=== PATIENT | female | born 1940 | race Caucasian/White ===

== ENCOUNTER → 2022-03-26 | Outpatient (CLI) | payer MEDICARE, SELFPAY ==
[2022-03-26 21:23] LABS: Absolute Lymphocyte Count 1.71 X10^3/uL (0.83-4.51); Absolute Neutrophil Count 2.5 X10^3/uL (2.0-7.7); Basophil# 0.04 X10^3/uL; Basophil% 0.8 % (0-1); Eosinophil# 0.09 X10^3/uL; Eosinophils% 1.8 % (0-5); Hematocrit 38.6 % (37-47); Hemoglobin 11.9 g/dL (12.0-15.0); Lymphocyte # 1.71 X10^3/ul (0.83-4.51); Lymphocyte % 34.5 % (19-41); Mean Corp Hgb Conc 30.8 g/dL (32-36); Mean Corpuscular Hgb 27.2 pg (27.0-32.0); Mean Corpuscular Volume 88.3 fL (81-99); Mean Platelet Vol. 9.1 fl (6.2-12.0); Monocyte# 0.58 X10^3/uL; Monocyte% 11.7 % (0-10); NRBC Flagged by Analyzer 0 % (0-5); Neutrophil # 2.52 X10^3/uL (2.7-7.7); Platelet Count 311 K/mm3 (150-450); RBC Distribution Width CV 12.7 % (11.6-14.6); RBC Distribution Width SD 41.6 fl (35.1-43.9); Red Blood Count 4.37 M/mm3 (4.2-5.4)
[2022-03-26 22:28] LABS: AST(SGOT) 27 U/L (15-37); Alanine Aminotransfer ALT/SGPT 16 U/L (13-56); Albumin, Serum 3.7 g/dL (3.2-5.0); Alkaline Phosphatase 71 U/L (45-117); Anion Gap 5 (5-15); BUN 23 mg/dL (7-18); BUN/Creat Ratio 22.8 RATIO (10-20); Chloride 106 mmol/L (98-107); Cholesterol 171 mg/dL (200); Creatinine, Serum 1.01 mg/dL (0.55-1.02); EST Glomerular Filtration Rate 56 mL/min (>60); Est Glom Filt Rate - Afr Amer 68 mL/min (>60); Globulin 3.6 g/dL (2.2-4.2); Glucose 93 mg/dL (74-106); High Density Lipoprotein 100 mg/dL; Potassium 4.6 mmol/L (3.5-5.1); Protein, Total 7.3 g/dL (6.4-8.2); Sodium Level 139 mmol/L (136-145); Thyroid Stim Hormone (TSH) 2.51 uIU/mL (0.358-3.74); Triglycerides 76 mg/dL; Uric Acid 3.8 mg/dL (2.6-6.0); Very Low Density Lipoprotein 15 mg/dL (5-40)
== END | disposition home or self-care (01) ==
PROVIDERS: Visit Provider Nurse Practitioner
DX: M10.9 Gout, unspecified (principal); E78.5 Hyperlipidemia, unspecified; R39.15 Urgency of urination; R60.0 Localized edema
CPT/HCPCS: 80053; 80061; 84443; 84550; 85025

== ENCOUNTER → 2023-01-05 | Outpatient (CLI) | payer MEDICARE, SELFPAY ==
[2023-01-05 13:58] LABS: Anion Gap 4 (5-15); BUN 18 mg/dL (7-18); BUN/Creat Ratio 17.8 RATIO (10-20); Calcium,Total 8.8 mg/dL (8.5-10.1); Chloride 107 mmol/L (98-107); Creatinine, Serum 1.01 mg/dL (0.55-1.02); EST Glomerular Filtration Rate 56 mL/min (>60); Est Glom Filt Rate - Afr Amer 68 mL/min (>60); Glucose 95 mg/dL (74-106); Potassium 4.3 mmol/L (3.5-5.1); Sodium Level 139 mmol/L (136-145)
== END | disposition home or self-care (01) ==
PROVIDERS: PCP Nurse Practitioner; Referring Provider Internal Medicine Cardiovascular Disease; Visit Provider Internal Medicine Cardiovascular Disease
DX: I25.10 Atherosclerotic heart disease of native coronary artery without angina pectoris (principal); G20 Parkinson's disease; I10 Essential (primary) hypertension; Z95.5 Presence of coronary angioplasty implant and graft
CPT/HCPCS: 36415; 80048

== ENCOUNTER 2023-02-01 13:42 | Inpatient (IN) | payer MEDICARE, SELFPAY ==
[2023-02-01 13:44] VITALS: BP 165/79; PULSE 77; RESP 20; TEMP 36.9; O2SAT 99; BMI 31.1
--- NOTE | 2023-02-01 14:00 | RAD_ITS ---
STUDY: X-RAY - PELVIS REASON FOR EXAM: Female, 82 years old. hip injury TECHNIQUE: One view of the pelvis was obtained. COMPARISON: None. FINDINGS: There is a non-specific bowel gas pattern. Normal visualized soft tissue structures. Normal bilateral iliac wings, sacroiliac joints and visualized sacrum. Normal visualized bilateral superior and inferior pubic rami. Normal pubic symphysis. Normal ischial tuberosities. Normal visualized right femoral head. Normal right acetabulum. Normal right hip joint. Acute distracted fracture of the intertrochanteric left femur. Normal left acetabulum. Normal left hip joint. RAD/Pelvis 1 or 2 Views IMPRESSION: Acute distracted fracture of the intertrochanteric left femur. Electronically Signed: Chun Martinez MD at 14:54 EDT ,
--- NOTE | 2023-02-01 14:00 | RAD_ITS ---
STUDY: X-RAY - LEFT FEMUR REASON FOR STUDY: Female, 82 years old. fall TECHNIQUE: 2 view(s) of the femur. COMPARISON: None. FINDINGS: Acute distracted fracture of the intertrochanteric left femur. Normal visualized soft tissue structure. RAD/Femur Min 2 Views IMPRESSION: Acute distracted fracture of the intertrochanteric left femur. Electronically Signed: Chun Martinez MD at 14:55 EDT ,
--- NOTE | 2023-02-01 14:00 | RAD_ITS ---
STUDY: X-RAY CHEST REASON FOR EXAM: Female, 82 years old. cough TECHNIQUE: Single AP portable view of the chest. COMPARISON: None. FINDINGS: The lungs are clear and expanded. There is no demonstrated pleural abnormality. Normal size heart. Normal mediastinum and yanna. Normal visualized pulmonary arteries. Normal visualized aortic arch and descending thoracic aorta. Normal visualized thoracic spine. Normal visualized ribs, clavicles, and shoulders. There is no demonstrated abnormality of the visualized soft tissue structures of the upper abdomen. RAD/Chest 1 View (Portable) IMPRESSION: Normal x-ray examination of the chest. Electronically Signed: Chun Martinez MD at 14:53 EDT ,
--- NOTE | 2023-02-01 14:00 | CT_ITS ---
STUDY: CT BRAIN WITHOUT CONTRAST REASON FOR EXAM: Female, 82 years old. head injury RADIATION DOSAGE (If Supplied By Facility): CTDIvol = ( 44.99 ) mGy, DLP = ( 829.85 ) mGycm TECHNIQUE: Transaxial CT imaging of the brain was performed without administration of intravenous contrast material. Individualized dose optimization techniques were used for this CT. COMPARISON: No relevant priors. FINDINGS: Normal soft tissue structures. There is hyperostosis frontalis internus. There is mild cerebral atrophy with widening of the extra-axial spaces and ventricular dilatation. There are areas of decreased attenuation within the white matter tracts of the supratentorial brain, consistent with microvascular disease changes. Normal basal ganglia and thalami. Normal brainstem. Normal cerebellum. There is no intracranial hemorrhage. There are no findings of an acute ischemic infarction. Normal visualized paranasal sinuses. CT/Brain/Head without Contrast IMPRESSION: Chronic involutional changes of the brain. Electronically Signed: Chun Martinez MD at 14:52 EDT ,
[2023-02-01] MEDS: Ondansetron 4 MG/2 ML Vial IV ×3 (14:06→16:27)
[2023-02-01] MEDS: Morphine 4 MG/ML Syringe IV ×2 (14:06→15:31)
[2023-02-01 14:12] LABS: Absolute Lymphocyte Count 1.35 X10^3/uL (0.83-4.51); Absolute Neutrophil Count 2.9 X10^3/uL (2.0-7.7); Basophil# 0.05 X10^3/uL; Eosinophil# 0.08 X10^3/uL; Eosinophils% 1.7 % (0-5); Hematocrit 35.2 % (37-47); Hemoglobin 10.8 g/dL (12.0-15.0); Lymphocyte # 1.35 X10^3/ul (0.83-4.51); Mean Corp Hgb Conc 30.7 g/dL (32-36); Mean Corpuscular Hgb 27.5 pg (27.0-32.0); Mean Corpuscular Volume 89.6 fL (81-99); Mean Platelet Vol. 8.7 fl (6.2-12.0); Monocyte# 0.43 X10^3/uL; Monocyte% 8.9 % (0-10); NRBC Flagged by Analyzer 0 % (0-5); Neutrophil % 60.2 % (47-70); Platelet Count 255 K/mm3 (150-450); RBC Distribution Width CV 12.6 % (11.6-14.6); RBC Distribution Width SD 41.8 fl (35.1-43.9); Red Blood Count 3.93 M/mm3 (4.2-5.4); White Blood Count 4.8 K/mm3 (4.4-11.0)
--- NOTE | 2023-02-01 14:16 | EDS_ITS ---
HPI <JACQUI Cano - Last Filed: 02/01/23 15:12> History of Present Illness Chief Complaint: Fall Narrative Narrative: Patient is a 82-year-old female with history of Parkinson disease, CAD, PR who presents to the emergency department after mechanical fall. Patient does have Parkinson's, states she does have history of falls. She was trying to pivot today, when she did not move her feet, she fell on her left side. Patient complains of extreme pain to her left hip, left femur. She was brought in by EMS. Patient does have an off-color such as a silver rash color to her face, this is secondary to drinking silver water multiple years ago. Patient states to have a significant amount of pain. She does live with her and her daughter [facility] <JACQUI Cano - Last Filed: 02/01/23 15:12> [facility] Medical History Atherosclerotic heart disease of [place] coronary artery without angina pectoris Bladder spasms CAD (coronary artery disease) Cardiogenic shock Edema, lower extremity Emphysema with chronic bronchitis Essential (primary) hypertension Fibromyalgia Gout Hyperlipidemia Myocardial infarction Non-rheumatic mitral regurgitation Non-rheumatic tricuspid valve insufficiency Parkinsons disease Presence of stent in coronary artery (~12/22/21) Pulmonary hypertension ST elevation myocardial infarction (STEMI) of inferior wall (~12/22/21) Urgency of urination Home Medications aspirin 81 mg tablet,delayed release (Adult Aspirin Regimen) 81 mg PO DAILY 02/25/22 [History Last Taken 01/31/23] cholecalciferol (vitamin D3) 25 mcg (1,000 unit) capsule 25 mcg PO DAILY 02/25/22 [History Last Taken 01/31/23] trazodone 50 mg tablet 50 mg PO QHS PRN sleep 02/25/22 [History Last Taken Unknown] clopidogrel 75 mg tablet (Plavix) 75 mg PO DAILY #90 tabs 04/25/22 [Rx Last Taken 01/31/23] carvedilol 3.125 mg tablet 3.125 mg PO BID #60 tabs 07/31/22 [Rx Last Taken 01/31/23] fesoterodine 4 mg tablet,extended release 24 hr 4 mg PO DAILY 07/31/22 [History Last Taken 01/31/23] atorvastatin 40 mg tablet 40 mg PO DAILY #90 tabs 08/05/22 [Rx Last Taken 01/31/23] carbidopa 25 mg-levodopa 100 mg tablet 1.5 tab PO ONCE 12/29/22 [History Last Taken 01/31/23] carbidopa 25 mg-levodopa 100 mg tablet 2 tab PO TID 12/29/22 [History Last Taken 01/31/23] duloxetine 20 mg capsule,delayed release 20 mg PO BID 12/29/22 [History Last Taken 01/31/23] escitalopram oxalate 10 mg tablet 10 mg PO DAILY 12/29/22 [History Last Taken 01/31/23] losartan 25 mg tablet 25 mg PO DAILY #90 tabs 12/29/22 [Rx Last Taken 01/31/23] Allergy/AdvReac Type Severity Reaction Status Date / Time oxycodone [From Percocet] Allergy Severe Hives Verified 12/29/22 13:45 Surgical History Presence of coronary angioplasty implant and graft Social History Smoking Status: Former smoker pack-years: 30 Tobacco: How many years used: 30 alcohol intake: current alcohol intake frequency: holidays/special occasions only substance use type: does not use caffeine: Yes Type: coffee Number of servings: 2 ROS <JACQUI Cano - Last Filed: 02/01/23 15:12> ROS ED ROS Narrative Constitutional: Negative for fever, chills, weight loss, weakness Eyes: Negative for vision loss, vision change, double vision ENT: Negative for any sore throat, ear pain, congestion Cardiovascular: Negative for any chest pain, tightness, palpitations Respiratory: Negative for any cough, sputum production, hemoptysis, dyspnea, dyspnea on exertion, orthopnea Gastrointestinal: Negative for any abdominal pain, nausea, vomiting, diarrhea, constipation, blood in stool, blood in vomit : Negative for any urinary frequency, dysuria, retention, blood in urine Muscle skeletal: Negative for any muscle joint pain, stiffness, myalgias, arthralgias, neck pain, back pain. Positive for left hip, left femur pain Neurological: Negative for any headache, syncope, numbness or tingling, dizziness Skin: Negative for any rashes, lumps, itching, abrasions, lacerations Psychiatric: Negative for any depression, anxiety, stress, suicidal ideation, homicidal ideation Hematologic: Negative for any easy bruising, excessive bruising, easy bleeding Allergies: Negative for any eczema, hives, rash EXAM <JACQUI Cano - Last Filed: 02/01/23 15:12> Physical Exam Narrative Exam Narrative: Vital signs reviewed. HEET: Head normocephalic atraumatic, TMs clear bilaterally. Posterior pharynx is clear, moist mucous membranes. Nares clear bilaterally. Pupils are equal round reactive to light. Neck: Supple with no lymphadenopathy or tenderness. No signs of meningismus, negative jolt sign. Cardiac: Regular rate and rhythm no murmurs gallops or rubs, equal peripheral pulses bilaterally. Respiratory: Lungs clear to auscultation bilaterally. No chest tenderness. Abdomen: Soft, nontender, nondistended. No abdominal bruit or pulsatile masses. No hepatosplenomegaly Extremities: No peripheral edema, no signs of gross trauma or deformity. Active full range of motion of all extremities. Patient does have internal rotation of the left hip, significant pain to the proximal femur, left hip. I was unable to perform any flexion or extension. +2 pedal pulse Neuro: Cranial nerves II through XII intact, no focal neurological deficits. Skin: Clean dry and intact with no rash, purpura, petechiae, vesicles or pustules. Patient does have an office overlay complexion this is chronic. Backs/flank: No CVA tenderness, no midline spinal tenderness, no deformity. Psych: Normal mood and affect. No SI, HI or acute psychosis. Const Vital Signs: 02/01/23 13:44 02/01/23 13:50 Temperature 98.4 F Temperature Source Temporal Pulse Rate 77 Respiratory Rate 20 H Respiratory Effort Normal Non-Labored Respiratory Depth Normal Respiratory Pattern Normal Blood Pressure 165/79 H Blood Pressure Mean 107 Pulse Ox 99 Oxygen Delivery Method Room Air Room Air <Dr. Law Gold DO - Last Filed: 02/01/23 15:58> Physical Exam Const Vital Signs: 02/01/23 13:44 02/01/23 13:50 Temperature 98.4 F Temperature Source Temporal Pulse Rate 77 Respiratory Rate 20 H Respiratory Effort Normal Non-Labored Respiratory Depth Normal Respiratory Pattern Normal Blood Pressure 165/79 H Blood Pressure Mean 107 Pulse Ox 99 Oxygen Delivery Method Room Air Room Air [facility] <Niko LorenzSYEDAC - Last Filed: 02/01/23 15:12> [facility] Lab Data Labs: Laboratory Results - last 24 hr 02/01/23 14:05 WBC 4.8 RBC 3.93 L Hgb 10.8 L Hct 35.2 L MCV 89.6 MCH 27.5 MCHC 30.7 L RDW Std Deviation 41.8 RDW Coeff of Aleena 12.6 Plt Count 255 MPV 8.7 Immature Gran % (Auto) 0.200 Neut % (Auto) 60.2 Lymph % (Auto) 28.0 Wake % (Auto) 8.9 Eos % (Auto) 1.7 Baso % (Auto) 1.0 Absolute Neuts (auto) 2.9 Absolute Lymphs (auto) 1.35 Nucleated RBC % 0 PT 14.8 INR 1.2 Sodium 141 Potassium 4.2 Chloride 107 Carbon Dioxide 30.0 Anion Gap 4 L BUN 16 Creatinine 0.85 Estim Creat Clear Calc 41.05 Est GFR (MDRD) Af Amer 83 Est GFR (MDRD) Non-Af 68 BUN/Creatinine Ratio 18.8 Glucose 98 Calcium 8.6 Radiography Diagnostic Testing: Clinical Impression(s) from Imaging Studies Brain CT 02/01/23 14:00 IMPRESSION: Chronic involutional changes of the brain. Electronically Signed: Chun Martinez MD at 14:52 EDT Reading Location ID and State: [id number] / [employer] , Service support , Chest X-Ray 02/01/23 14:00 IMPRESSION: Normal x-ray examination of the chest. Electronically Signed: Chun Martinez MD at 14:53 EDT Reading Location ID and State: [id number] / [employer] , Service support , Femur X-Ray 02/01/23 14:00 IMPRESSION: Acute distracted fracture of the intertrochanteric left femur. Electronically Signed: Chun Martinez MD at 14:55 EDT Reading Location ID and State: [id number] / [employer] , Service support , Pelvis X-Ray 02/01/23 14:00 IMPRESSION: Acute distracted fracture of the intertrochanteric left femur. Electronically Signed: Chun Martinez MD at 14:54 EDT Reading Location ID and State: [id number] / [employer] , Service support , Elbow X-Ray 02/01/23 15:12 IMPRESSION: Normal x-ray examination of the elbow. Electronically Signed: Chun Martinez MD at 15:29 EDT Reading Location ID and State: [id number] / [employer] , Service support , EKG EKG shows a normal sinus rhythm: Attestation: I personally reviewed and interpreted this EKG as follows: Comments: Normal sinus rhythm, rate of 71 bpm, CT 150 ms, QRS duration [address] elevation, no acute infarct noted. Treatment and Re-Evaluation :: Patient appears to be in moderate distress secondary to left hip, left femur pain. Patient presents to the emergency department after mechanical falls, striking the back of her head, as well as the left hip and left femur. Secondary to the physical examination, concern for a femur or hip fracture. Differential diagnosis includes groin strain, hip fracture, femur fracture, pelvis fracture. Patient be given IV fluids, IV Zofran, IV morphine. She will be sent for x-rays of the left femur, left hip as well as CT scan of the brain. Preop orders will also be placed concerning for fracture such as PT/INR, chest x-ray, EKG. EKG was unremarkable. All radiologic examinations were read, reviewed by the emergency department attending. From these reads, a plan of care will be put in place. Patient on reevaluation said her pain was under control. Patient did have a urinary Willis. Patient's labs were unremarkable, patient CBC PT/INR chemistries were unremarkable. Patient's CT scan of the brain showed chronic involutional changes of the brain. Patient's x-ray of the chest was unremarkable, x-ray of the pelvis and femur showed acute distracted fracture of the intertrochanteric left femur. Secondary to this finding, I did reach out to orthopedics Dr. Grier, he will likely fix the hip tomorrow. Patient will need to be admitted to hospitalist. Patient stable. <Dr. Law Gold, DO - Last Filed: 02/01/23 15:58> [facility] Narrative Medical decision making narrative: I have personally performed a face to face assessment of the patient and have reviewed the AMMON Note. I performed a substantive portion of the visit including all aspects of the following. My medeiros findings include: History: Patient presents with left hip pain that began after a fall. Patient lives in extended-care facility and fell trying to stand and get out of bed. Patient denies any head injury or loss of consciousness. Patient landed on her left hip. Patient states she was unable to ambulate after the fall. Patient states her pain is worse with any movement. Patient denies any paresthesias or weakness. Patient denies any other injuries. Exam: Vital signs are stable. Patient is afebrile. Patient is in no acute distress. Oral mucosa is pink and moist. Neck is supple. Trachea is midline. There is no JVD. Heart was regular rate and rhythm. Lungs are clear and equal bilaterally. Abdomen is soft. Bowel sounds are normal. There is no tenderness. Musculoskeletal exam reveals deformity of the left lower extremity. It is shortened and externally rotated. Pedal pulses are equal bilaterally. Sensations intact to light touch in all digits. Capillary refill was less than 2 seconds in all digits. Patient's skin has a silver hue to it. Patient states that she drank silver water recently and is due to that. Medical Decision Making: Differential diagnosis includes hip fracture, anemia, dehydration, and electrolyte abnormality. X-rays of the left hip will be obtained to assess for fracture. CBC will be obtained to assess for anemia. Basic metabolic profile will be obtained to assess for electrolyte abnormality and renal function. X-rays of the pelvis were obtained. There is 1 view. On my interpretation, there is an intertrochanteric fracture of the left hip. Radiologist also interpreted the x-rays and agrees. X-rays of the left femur were obtained. There are 5 views. On my independent interpretation, there is an intertrochanteric fracture of the left femoral neck. There are no other fractures noted. Radiologist also interpreted the x-rays and agrees. Portable 1 view chest x-ray was obtained. On my independent interpretation, lung garibay are clear. There is normal cardiac silhouette. Bony thorax is normal. There is no acute process noted. Radiologist also interpreted the x-ray and agrees. X-rays of the left elbow were obtained. There are 3 views. On my independent interpretation, there is no acute fracture noted. There are some degenerative changes noted. There is no effusion noted. Radiologist also interpreted the x-rays and agrees. CT scan of the brain was obtained. There is no acute intracranial abnormality. This was interpreted by the radiologist and was also independently reviewed by myself. CBC was reviewed. There is a mild anemia with a hemoglobin of 10.8 and hematocrit 35.2. Basic metabolic profile was reviewed and was essentially within normal limits. Because of the hip fracture, PT with INR was obtained. Pro time was 14.8 and INR is 1.2. EKG was obtained. On my independent interpretation, shows normal sinus rhythm with a rate of 71. There are no acute ST or T wave changes noted. Case was discussed with the hospitalist. She will admit the patient to her service. Patient understood and was agreeable with the plan. All questions were answered. Lab Data Attestation: I reviewed the patient's lab results. Labs: Laboratory Results - last 24 hr 02/01/23 14:05 WBC 4.8 RBC 3.93 L Hgb 10.8 L Hct 35.2 L MCV 89.6 MCH 27.5 MCHC 30.7 L RDW Std Deviation 41.8 RDW Coeff of Aleena 12.6 Plt Count 255 MPV 8.7 Immature Gran % (Auto) 0.200 Neut % (Auto) 60.2 Lymph % (Auto) 28.0 Wake % (Auto) 8.9 Eos % (Auto) 1.7 Baso % (Auto) 1.0 Absolute Neuts (auto) 2.9 Absolute Lymphs (auto) 1.35 Nucleated RBC % 0 PT 14.8 INR 1.2 Sodium 141 Potassium 4.2 Chloride 107 Carbon Dioxide 30.0 Anion Gap 4 L BUN 16 Creatinine 0.85 Estim Creat Clear Calc 41.05 Est GFR (MDRD) Af Amer 83 Est GFR (MDRD) Non-Af 68 BUN/Creatinine Ratio 18.8 Glucose 98 Calcium 8.6 Radiography Diagnostic Testing: Clinical Impression(s) from Imaging Studies Brain CT 02/01/23 14:00 IMPRESSION: Chronic involutional changes of the brain. Electronically Signed: Chun Martinez MD at 14:52 EDT Reading Location ID and State: [employer] / [employer] , Service support , Chest X-Ray 02/01/23 14:00 IMPRESSION: Normal x-ray examination of the chest. Electronically Signed: Chun Martinez MD at 14:53 EDT Reading Location ID and State: [employer] / [employer] , Service support , Femur X-Ray 02/01/23 14:00 IMPRESSION: Acute distracted fracture of the intertrochanteric left femur. Electronically Signed: Chun Martinez MD at 14:55 EDT Reading Location ID and State: [employer] / [employer] , Service support , Pelvis X-Ray 02/01/23 14:00 IMPRESSION: Acute distracted fracture of the intertrochanteric left femur. Electronically Signed: Chun Martinez MD at 14:54 EDT Reading Location ID and State: [employer] / [employer] , Service support , Elbow X-Ray 02/01/23 15:12 IMPRESSION: Normal x-ray examination of the elbow. Electronically Signed: Chun Martinez MD at 15:29 EDT Reading Location ID and State: [employer] / [employer] , Service support , Discharge Plan Triage Chief Complaint: Fall ED Midlevel Provider: Niko Lorenz ED Provider: Law Gold Dx/Rx/DC Orders Clinical Impression: History of Parkinson's disease, Closed hip fracture, CHI (closed head injury), Fall Primary Care Provider: Patrizia Arreguin NP
[2023-02-01 14:21] LABS: International Normalized Ratio 1.2; Prothrombin Time (Protime)PT. 14.8 SECONDS (11.7-14.9)
[2023-02-01 14:25] LABS: Anion Gap 4 (5-15); BUN 16 mg/dL (7-18); BUN/Creat Ratio 18.8 RATIO (10-20); Calcium,Total 8.6 mg/dL (8.5-10.1); Chloride 107 mmol/L (98-107); Creatinine, Serum 0.85 mg/dL (0.55-1.02); EST Glomerular Filtration Rate 68 mL/min (>60); Est Glom Filt Rate - Afr Amer 83 mL/min (>60); Estimated Creatinine Clearance 41.05 ml/min; Glucose 98 mg/dL (74-106); Potassium 4.2 mmol/L (3.5-5.1); Sodium Level 141 mmol/L (136-145)
--- NOTE | 2023-02-01 15:12 | RAD_ITS ---
STUDY: X-RAY - LEFT ELBOW REASON FOR EXAM: Female, 82 years old. fall TECHNIQUE: 3 view(s) of the elbow. COMPARISON: None. FINDINGS: Normal visualized humerus, radius and ulna. Normal radiocapitellar and ulnotrochlear articulations. The soft tissue structures are unremarkable. RAD/Elbow min 3 Views IMPRESSION: Normal x-ray examination of the elbow. Electronically Signed: Chun Martinez MD at 15:29 EDT ,
--- NOTE | 2023-02-01 15:26 | HP.PCM.HOS_ITS ---
HPI - General General Date of Admission: 02/01/23 Date of Service: 02/01/23 Chief Complaint: Fall, L hip pain. HPI Narrative The patient is an 82 y/o F w/ PMHx: CAD s/p PCI, HTN, HLD, COPD, Parkinson's disease, Chronic urgency/bladder spasms following with Urology, Gout, Fibromyalgia, Hx usage silver water with chronically silver skin hue, Obesity who presents to the [facility] ED on 02/01/23 with history of mechanical fall attempting to pivot with her walker however her feet did not move as quickly as her upper body and she fell onto her left side with significant debility and pain to the left hip and leg prompting EMS call and transition to the ED for evaluation. Patient does have a history of frequent falls but is improved since she uses a walker. Patient in the ED currently rating her pain 7 out of 10 in severity specifically to the left hip, worse with any movement. Work-up in the ED included T98.4, heart rate 77, BP 165/79, respiratory rate 20, 99% on room air, CBC with WBC 4.8, hemoglobin 10.8, MCV 89.6, platelet 255 without marked shift, unremarkable coags, unremarkable BMP, CT brain with chronic involutional changes, chest x-ray with no acute cardiopulmonary findings, plain film of the left femur with an acute distracted fracture of the intertrochanteric left femur, plain film of the pelvis with an acute distracted fracture of the intertrochanteric left femur, EKG with sinus rhythm with no acute evidence of ischemia. Discussed patient allergies specifically oxycodone which causes hives. She notes she is able to tolerate [place] and per daughter Dilaudid low- dose. In the ED she was administered Zofran 4 mg IV x2 and morphine 4 mg IV x2 and did not have a significant reaction thus far but discussed and if any concerns arise or hives would administer medications as needed. [facility] Medical History (Updated 02/01/23 @ 16:[address] Jasmin Steele MD) Atherosclerotic heart disease of lime coronary artery without angina pectoris Bladder spasms CAD (coronary artery disease) Cardiogenic shock Depression Edema, lower extremity Emphysema with chronic bronchitis Essential (primary) hypertension Fibromyalgia Former tobacco use Gout Hyperlipidemia Hypertension Myocardial infarction Non-rheumatic mitral regurgitation Non-rheumatic tricuspid valve insufficiency Parkinsons disease Presence of stent in coronary artery (~12/22/21) Pulmonary hypertension ST elevation myocardial infarction (STEMI) of inferior wall (~12/22/21) Urgency of urination Home Medications aspirin 81 mg tablet,delayed release (Adult Aspirin Regimen) 81 mg PO DAILY 02/25/22 [History Last Taken 01/31/23] cholecalciferol (vitamin D3) 25 mcg (1,000 unit) capsule 25 mcg PO DAILY 02/25/22 [History Last Taken 01/31/23] trazodone 50 mg tablet 50 mg PO QHS PRN sleep 02/25/22 [History Last Taken Unknown] clopidogrel 75 mg tablet (Plavix) 75 mg PO DAILY #90 tabs 04/25/22 [Rx Last Taken 01/31/23] carvedilol 3.125 mg tablet 3.125 mg PO BID #60 tabs 07/31/22 [Rx Last Taken 01/31/23] fesoterodine 4 mg tablet,extended release 24 hr 4 mg PO DAILY 07/31/22 [History Last Taken 01/31/23] atorvastatin 40 mg tablet 40 mg PO DAILY #90 tabs 08/05/22 [Rx Last Taken 01/31/23] carbidopa 25 mg-levodopa 100 mg tablet 1.5 tab PO ONCE 12/29/22 [History Last Taken 01/31/23] carbidopa 25 mg-levodopa 100 mg tablet 2 tab PO TID 12/29/22 [History Last Taken 01/31/23] duloxetine 20 mg capsule,delayed release 20 mg PO BID 12/29/22 [History Last Taken 01/31/23] escitalopram oxalate 10 mg tablet 10 mg PO DAILY 12/29/22 [History Last Taken 01/31/23] losartan 25 mg tablet 25 mg PO DAILY #90 tabs 12/29/22 [Rx Last Taken 01/31/23] Allergy/AdvReac Type Severity Reaction Status Date / Time oxycodone [From Percocet] Allergy Severe Hives Verified 12/29/22 13:45 Family History (Updated 02/01/23 @ 16:[address] Jasmin Steele MD) Father Heart disease other (Mother during childbirth.) Surgical History (Updated 02/01/23 @ 16:[address] Jasmin Steele MD) History of ankle surgery History of hysterectomy Presence of coronary angioplasty implant and graft S/P appendectomy Social History (Updated 02/01/23 @ 16:[address] Jasmin Steele MD) household members: friend(s) Smoking Status: Former smoker pack-years: 30 Tobacco: How many years used: 30 how long ago did patient quit smoking: Quit 20+ years prior. alcohol intake: current alcohol intake frequency: holidays/special occasions only substance use type: does not use caffeine: Yes Type: coffee Number of servings: 2 ROS ROS Narrative Admission Review of Systems: CONSTITUTIONAL: No weight loss, fever, chills, + weakness or fatigue. HEENT: Eyes: No visual loss, blurred vision, double vision or yellow sclerae. Ears, Nose, Throat: No hearing loss, sneezing, congestion, runny nose or sore throat. SKIN: No rash or itching, lesions, wounds. + Chronic blue/silver hued skin. CARDIOVASCULAR: No chest pain, chest pressure or chest discomfort, palpitations, edema, orthopnea, syncopal events. RESPIRATORY: No shortness of breath, cough or sputum, wheezing, hemoptysis. GASTROINTESTINAL: No anorexia, nausea, vomiting or diarrhea, abdominal pain, melena, BRBPR. GENITOURINARY: + Chronic urgency issues. No dysuria, frequency, retention. NEUROLOGICAL: + Underlying Parkinson's with affected gait/tremors. No headache, dizziness, syncope, paralysis, numbness or tingling in the extremities, focal weakness, change in bowel or bladder control, seizure. MUSCULOSKELETAL: + muscle, back pain, joint pain or stiffness. HEMATOLOGIC: + anemia. + Easy bleeding or bruising. LYMPHATICS: No enlarged nodes. No history of splenectomy. PSYCHIATRIC: + history of depression or anxiety. ENDOCRINOLOGIC: No reports of sweating, cold or heat intolerance. No polyuria or polydipsia. ALLERGIES: + history of hives. Vital Signs Vital Signs Vital Signs: 02/01/23 13:44 02/01/23 13:50 Temperature 98.4 F Temperature Source Temporal Pulse Rate 77 Respiratory Rate 20 H Respiratory Effort Normal Non-Labored Respiratory Depth Normal Respiratory Pattern Normal Blood Pressure 165/79 H Blood Pressure Mean 107 Pulse Ox 99 Oxygen Delivery Method Room Air Room Air Weight Weight: 169 lb 15.622 oz Body Mass Index (BMI) 31.1 Physical Exam Narrative Physical Examination: General: Awake, alert, oriented x 3 and cooperative, laying in the ED bed, appears comfortable but currently reports pain 6-7 out of 10 in severity. Skin: Normal color, normal turgor, no icterus, no cyanosis except for significant blue/silver hue to the skin more strong in the facial and upper neck region. HEENT: AT/NC, EOMI, PERRLA, M mildly dry M, no carotid bruits or JVD noted. Lungs: CTA bilaterally, moderate effort, mild decrease BL bases, no rales, ronchi or wheezing. Heart: Regular rate and rhythm; no gallop, rub audible. Abdomen: Soft, overweight, NTTP, ND, mildly hyperactive BS, no HSM. Extremities: No cyanosis, no clubbing, peripheral pulses intact, status post fall with left hip fracture, mildly externally rotated. Neurological: Patient awake, alert, oriented as noted, cognitive function intact; pupils equally reactive to light and accommodation, cranial nerves II- XII grossly normal, moving extremities except expected limited left lower extremity movement given fall with left hip fracture, strength accordingly sev erely globally decreased. Psychiatric: Affect appears mildly flat otherwise normal, no acute evidence of depressive or anxiety feelings. Results Lab / Micro Data 02/01/23 14:05 02/01/23 14:05 Labs: Laboratory Results - last 24 hr 02/01/23 14:05: WBC 4.8, RBC 3.93 L, Hgb 10.8 L, Hct 35.2 L, MCV 89.6, MCH 27.5, MCHC 30.7 L, RDW Std Deviation 41.8, RDW Coeff of Aleena 12.6, Plt Count 255, MPV 8.7, Immature Gran % (Auto) 0.200, Neut % (Auto) 60.2, Lymph % (Auto) 28.0, [place] % (Auto) 8.9, Eos % (Auto) 1.7, Baso % (Auto) 1.0, Absolute Neuts (auto) 2.9, Absolute Lymphs (auto) 1.35, Nucleated RBC % 0, PT 14.8, INR 1.2, Sodium 141, Potassium 4.2, Chloride 107, Carbon Dioxide 30.0, Anion Gap 4 L, BUN 16, Creatinine 0.85, Estim Creat Clear Calc 41.05, Est GFR (MDRD) Af Amer 83, Est GFR (MDRD) Non-Af 68, BUN/Creatinine Ratio 18.8, Glucose 98, Calcium 8.[address] 02/01/23 14:00 IMPRESSION: Chronic involutional changes of the brain. Electronically Signed: Chun Martinez MD at 14:52 EDT Reading Location ID and State: [id number] / [employer] , Service support , Chest X-Ray 02/01/23 14:00 IMPRESSION: Normal x-ray examination of the chest. Electronically Signed: Chun Martinez MD at 14:53 EDT Reading Location ID and State: [id number] / [employer] , Service support , Femur X-Ray 02/01/23 14:00 IMPRESSION: Acute distracted fracture of the intertrochanteric left femur. Electronically Signed: Chun Martinez MD at 14:55 EDT Reading Location ID and State: [email or web address] / [employer] , Service support , Pelvis X-Ray 02/01/23 14:00 IMPRESSION: Acute distracted fracture of the intertrochanteric left femur. Electronically Signed: Chun Martinez MD at 14:54 EDT Reading Location ID and State: [email or web address] / [employer] , Service support , Assessment & Plan Assessment/Plan (1) Closed hip fracture: PLAN: Plan The patient is an 82 y/o F w/ PMHx: CAD s/p PCI, HTN, HLD, COPD, Parkinson's disease, Chronic urgency/bladder spasms following with Urology, Gout, Fibromyalgia, Hx usage silver water with chronically silver skin hue, Obesity who presents to the [facility] ED on 02/01/23 with history of mechanical fall attempting to pivot with her walker however her feet did not move as quickly as her upper body and she fell onto her left side with significant debility and pain to the left hip and leg prompting EMS call and transition to the ED for evaluation. #1. General debility, left hip pain s/p mechanical fall w/ acute distracted fracture of the intertrochanteric left femur: Orthopedic surgery Dr. Grier consulted from ED. Will admit to [facility], maintain NPO after midnight, continue gentle IVFs, mendoza placement, monitor I/Os, frequent positioning, fall precautions, Pain, anti-emetic regimen. PT/OT following operative intervention. CM consulted for discharge planning. Per NSQIP patient certainly elevated risk with age, underlying history, however, underlying co-morbidities well controlled and did have recent cardiology visit 12/2022, EKG without acute concerning findings with only mildly elevated BNP. Reviewed case and findings with Dr. Polo and he is amenable for her to transition to the OR in am without further cardiac evaluation. Of note given Parkinson's disease w/ fall risk certainly likely higher risk for recurrence thus discussed need for SNF placement following intervention. #2. CAD: Previous history STEMI inferior wall, status post PCI, continue aspirin, temporally hold Plavix for operative intervention as noted, continue Coreg and losartan regimen, recent 12/29/2022 cardiology evaluation with no acute concerns at that time, BNP obtained and only mildly elevated 145.2. Reviewed history and case with Dr. Polo and given recent Cardiology evaluation, no concerning symptoms, amenable to transition to OR. #3. Parkinson's disease: Complicates presentation, maintain on fall precaution, we will continue patient home Sinemet regimen, encourage early follow-up with neurology, PT/OT/case management consultation for discharge planning. #4. Hypertension: Continue home regimen including losartan, Coreg, PRN hydralazine. #5. Hyperlipidemia: We will continue patient on statin therapy. #6. Anxiety and depression: We will continue patient home duloxetine regimen as well as low-dose nightly trazodone, need to clarify but it appears that patient is also on escitalopram. #7. Chronic normocytic anemia: Admission hemoglobin 10.8, MCV 89.6, baseline prior 11.9, will continue to trend. #8. Former tobacco use: Encourage continued tobacco cessation. #9. DVT prophylaxis: SCDs, hold chemoprophylaxis for planned OR in AM. #10. CODE status: Patient HCPOA and living will are not in place but she notes her daughter who is present would be her decision-maker if she was unable. Discussed CODE status at length including difference between FULL code, DNR-CCA and DNR-CC status. Following discussions about the differences in these status, requested DNR-CCA, no intubatoin. Advanced Care Planning Face to Face Time: 16 minutes. Charges/Coding Visit Charges Inpatient E&M: 98692 Init Hosp L3 Procedures Hospitalists Procedures: 02255 Advncd Care Plan 30 Min
[2023-02-01 15:57] LABS: BNP,B-Type NATRIURETIC PEPTIDE 145.2 pg/mL (0-100)
[2023-02-01 16:04] VITALS: BP 150/71; PULSE 73; RESP 18; TEMP 36.6; O2SAT 98
[2023-02-01 16:05] VITALS: BMI 29.5
[2023-02-01] MEDS: 0.9% Saline Lock 10 ML Syringe IV ×2 (16:27→20:42)
[2023-02-01] MEDS: Carbidopa/Levodopa 25/100 Tablet PO ×2 (16:27→20:44)
[2023-02-01] MEDS: Acetaminophen 325 MG Tablet 650 MG PO (16:27)
[2023-02-01] MEDS: HYDROcodone Bitartrate/Apap 5/325 Tablet PO ×2 (17:17→22:02)
--- NOTE | 2023-02-01 19:22 | CONS.ORTHO ---
HPI Consult Data Date of Consult: 02/01/23 HPI Narrative Reason for Consultation: Left hip fracture HPI Narrative: DAGOBERTO COHN, is a 82 F who presents to [facility] emergency department after a mechanical fall from standing height. She states her upper body was out in front of her lower body was able to keep up causing her to fall. She denies any head injury or loss consciousness. She states he did hit her left elbow as well. She is able to flex and extend her elbow without difficulty. 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 Patient denies any antecedent left hip or groin pain. She was admitted under the service of the hospitalist after x-rays revealed a displaced left intertrochanteric proximal femur fracture. I saw patient consultation. At time my examination patient denies any other complaints other than her left hip pain. She denies fevers, chills, nausea vomiting, chest pain or shortness of breath. Denies any problems anesthesia in the past. Denies history of VTE. [facility] Medical History (Updated 02/01/23 @ 19:[address] Davian Grier, ) Atherosclerotic heart disease of [place] coronary artery without angina pectoris Bladder spasms CAD (coronary artery disease) Cardiogenic shock Depression Edema, lower extremity Emphysema with chronic bronchitis Essential (primary) hypertension Fibromyalgia Former tobacco use Gout Hyperlipidemia Hypertension Myocardial infarction Non-rheumatic mitral regurgitation Non-rheumatic tricuspid valve insufficiency Parkinsons disease Presence of stent in coronary artery (~12/22/21) Pulmonary hypertension ST elevation myocardial infarction (STEMI) of inferior wall (~12/22/21) Urgency of urination Home Medications aspirin 81 mg tablet,delayed release (Adult Aspirin Regimen) 81 mg PO DAILY 02/25/22 [History Last Taken 01/31/23] cholecalciferol (vitamin D3) 25 mcg (1,000 unit) capsule 25 mcg PO DAILY 02/25/22 [History Last Taken 01/31/23] trazodone 50 mg tablet 50 mg PO QHS PRN sleep 02/25/22 [History Last Taken Unknown] clopidogrel 75 mg tablet (Plavix) 75 mg PO DAILY #90 tabs 04/25/22 [Rx Last Taken 01/31/23] carvedilol 3.125 mg tablet 3.125 mg PO BID #60 tabs 07/31/22 [Rx Last Taken 01/31/23] fesoterodine 4 mg tablet,extended release 24 hr 4 mg PO DAILY 07/31/22 [History Last Taken 01/31/23] atorvastatin 40 mg tablet 40 mg PO DAILY #90 tabs 08/05/22 [Rx Last Taken 01/31/23] carbidopa 25 mg-levodopa 100 mg tablet 1.5 tab PO ONCE 12/29/22 [History Last Taken 01/31/23] carbidopa 25 mg-levodopa 100 mg tablet 2 tab PO TID 12/29/22 [History Last Taken 01/31/23] duloxetine 20 mg capsule,delayed release 20 mg PO BID 12/29/22 [History Last Taken 01/31/23] escitalopram oxalate 10 mg tablet 10 mg PO DAILY 12/29/22 [History Last Taken 01/31/23] losartan 25 mg tablet 25 mg PO DAILY #90 tabs 12/29/22 [Rx Last Taken 01/31/23] Allergy/AdvReac Type Severity Reaction Status Date / Time oxycodone [From Percocet] Allergy Severe Hives Verified 12/29/22 13:45 Family History (Updated 02/01/23 @ 16:[address] Jasmin Steele MD) Father Heart disease Family History other Surgical History (Updated 02/01/23 @ 16:[address] Jasmin Steele MD) History of ankle surgery History of hysterectomy Presence of coronary angioplasty implant and graft S/P appendectomy Social History (Updated 02/01/23 @ 16:[address] Jasmin Steele MD) household members: friend(s) Smoking Status: Former smoker pack-years: 30 Tobacco: How many years used: 30 how long ago did patient quit smoking: Quit 20+ years prior. alcohol intake: current alcohol intake frequency: holidays/special occasions only substance use type: does not use caffeine: Yes Type: coffee Number of servings: 2 ROS ROS Narrative 12 point review systems obtained, negative unless otherwise noted in HPI. Vital Signs Vital Signs Vital Signs: 02/01/23 13:44 02/01/23 13:50 02/01/23 16:04 Temperature 98.4 F 97.8 F Temperature Source Temporal Temporal Pulse Rate 77 73 Respiratory Rate 20 H 18 Respiratory Effort Normal Non-Labored Respiratory Depth Normal Respiratory Pattern Normal Blood Pressure 165/79 H 150/71 H Blood Pressure Mean 107 97 Blood Pressure Source Monitor Blood Pressure Position Semi-Fowlers Blood Pressure Location Left Arm Pulse Ox 99 98 Oxygen Delivery Method Room Air Room Air Room Air 02/01/23 15:59 Temperature Temperature Source Pulse Rate Respiratory Rate Respiratory Effort Normal Non-Labored Respiratory Depth Normal Respiratory Pattern Normal Blood Pressure Blood Pressure Mean Blood Pressure Source Blood Pressure Position Blood Pressure Location Pulse Ox Oxygen Delivery Method Room Air Weight Weight: 161 lb 4.8 oz Body Mass Index (BMI) 29.5 Physical Exam Narrative General -A&Ox3, NAD, appears stated age. Vital signs stable, afebrile. Respiratory -normal work of breathing, no intercostal retractions. CV -pulses regular, brisk capillary refill ?4 limbs. Abdomen-soft, nontender, nondistended. No guarding, rigidity, rebound tenderness. Musculoskeletal/neurologic -full range of motion nontender throughout bilateral upper extremities, right lower extremity with full sensation and strength in all dermatomes and myotomes. Subcutaneous hematoma/hemorrhagic bursitis left olecranon. Full flexion extension of the left elbow without focal tenderness. No midline cervical tenderness. Left lower extremity-no obvious deformity. Pain with logroll of the left lower extremity. Nontender throughout the left knee femoral shaft, tibial shaft and left foot/ankle. Brisk capillary refill. Sensation intact light touch L3-S1 dermatomes. DF, PF, EHL intact. DP, PT 2+. Pelvis is stable, nontender. Skin is intact without lacerations, abrasions. No ecchymosis noted. Lab / Micro Data 02/01/23 14:05 02/01/23 14:05 Labs: Laboratory Results - last 24 hr 02/01/23 14:05: WBC 4.8, RBC 3.93 L, Hgb 10.8 L, Hct 35.2 L, MCV 89.6, MCH 27.5, MCHC 30.7 L, RDW Std Deviation 41.8, RDW Coeff of [place]ena 12.6, Plt Count 255, MPV 8.7, Immature Gran % (Auto) 0.200, Neut % (Auto) 60.2, Lymph % (Auto) 28.0, [place] % (Auto) 8.9, Eos % (Auto) 1.7, Baso % (Auto) 1.0, Absolute Neuts (auto) 2.9, Absolute Lymphs (auto) 1.35, Nucleated RBC % 0, PT 14.8, INR 1.2, Sodium 141, Potassium 4.2, Chloride 107, Carbon Dioxide 30.0, Anion Gap 4 L, BUN 16, Creatinine 0.85, Estim Creat Clear Calc 41.05, Est GFR (MDRD) Af Amer 83, Est GFR (MDRD) Non-Af 68, BUN/Creatinine Ratio 18.8, Glucose 98, Calcium 8.6, B-Natriuretic Peptide 145.[address] Imp[address] Brain CT 02/01/23 14:00 IMPRESSION: Chronic involutional changes of the brain. Electronically Signed: Chun Martinez MD at 14:52 EDT Reading Location ID and State: [employer] , Service support , Chest X-Ray 02/01/23 14:00 IMPRESSION: Normal x-ray examination of the chest. Electronically Signed: Chun Martinez MD at 14:53 EDT Reading Location ID and State: [employer] , Service support , Femur X-Ray 02/01/23 14:00 IMPRESSION: Acute distracted fracture of the intertrochanteric left femur. Electronically Signed: Chun Martinez MD at 14:55 EDT Reading Location ID and State: [employer] , Service support , Pelvis X-Ray 02/01/23 14:00 IMPRESSION: Acute distracted fracture of the intertrochanteric left femur. Electronically Signed: Chun Martinez MD at 14:54 EDT Reading Location ID and State: [employer] , Service support , Elbow X-Ray 02/01/23 15:12 IMPRESSION: Normal x-ray examination of the elbow. Electronically Signed: Chun Martinez MD at 15:29 EDT , Assessment & Plan Assessment/Plan (1) Closed hip fracture: QUALIFIERS: Encounter type: initial encounter Laterality: left Qualified Code(s): S72.002A - Fracture of unspecified part of neck of left femur, initial encounter for closed fracture PLAN: Patient sustained a left intertrochanteric proximal femur fracture. -Closed, neurovascularly intact -Recommending surgical intervention in the form of left femur cephalomedullary nailing -I discussed the procedure-its risks, benefits and alternative. Risks include but are not limited to bleeding, infection, loss of life or limb, risk of anesthesia, persistent pain or disability, need for additional surgery, nonunion, malunion, failure of orthopedic hardware, neurovascular injury, DVT or PE. Patient expressed understanding these risks and wished proceed with surgery. -Maintenance IV fluids, clear liquid diet after midnight n.p.o. at 2 hours prior to surgery -Type and screen -2 g Ancef on-call to the OR -Bedrest, heel protectors -Plan to proceed with surgery tomorrow when OR becomes available -Hold Plavix until postop. Thank you for this consultation.
[2023-02-01 20:18] VITALS: BP 132/64; PULSE 86; RESP 16; TEMP 36.7; O2SAT 97
[2023-02-01] MEDS: HYDROmorphone 0.5 MG/0.5 ML SYRINGE IV (20:42)
[2023-02-01] MEDS: Menthol/Lanolin/Calamine/Znox 113 GM Tube 1 APPLIC TOPICAL (20:43)
[2023-02-01] MEDS: Carvedilol 3.125 MG TABLET PO (20:44)
[2023-02-01] MEDS: DULoxetine Hcl 20 MG Capsule PO (20:44)
[2023-02-01] MEDS: Atorvastatin Calcium 40 MG Tablet PO (20:45)
[2023-02-01] MEDS: Senna/Docusate Sodium 1 Tablet 2 TABLET PO (20:45)
--- NOTE | 2023-02-01 21:42 | PCM.HOSP.N ---
Hospitalist Note As per the nurse, patient changed her mind from DNRCC arrest to full code. She wants to be full code. CODE STATUS changed to full code.
[2023-02-02] VITALS (10 sets, daily range): BP systolic 92–121; BP diastolic 41–58; PULSE 68–83; RESP 16; TEMP 36.1–37.2; O2SAT 96–100; BMI 29.6; BMI 29.5
[2023-02-02] MEDS: 0.9% Normal Saline (1000mL) 1,000 ML 75 ML IV ×2 (00:29→17:28)
[2023-02-02] MEDS: HYDROmorphone 0.5 MG/0.5 ML SYRINGE IV (04:35)
[2023-02-02 06:37] LABS: Absolute Lymphocyte Count 1.77 X10^3/uL (0.83-4.51); Absolute Neutrophil Count 4.4 X10^3/uL (2.0-7.7); Basophil# 0.02 X10^3/uL; Basophil% 0.3 % (0-1); Eosinophil# 0.02 X10^3/uL; Eosinophils% 0.3 % (0-5); Hemoglobin 9.1 g/dL (12.0-15.0); Lymphocyte # 1.77 X10^3/ul (0.83-4.51); Lymphocyte % 25.2 % (19-41); Mean Corp Hgb Conc 31.4 g/dL (32-36); Mean Corpuscular Hgb 27.7 pg (27.0-32.0); Mean Corpuscular Volume 88.1 fL (81-99); Mean Platelet Vol. 8.9 fl (6.2-12.0); Monocyte# 0.82 X10^3/uL; Monocyte% 11.7 % (0-10); NRBC Flagged by Analyzer 0 % (0-5); Neutrophil # 4.36 X10^3/uL (2.7-7.7); Neutrophil % 62.1 % (47-70); Platelet Count 237 K/mm3 (150-450); RBC Distribution Width CV 12.6 % (11.6-14.6); RBC Distribution Width SD 40.4 fl (35.1-43.9); Red Blood Count 3.29 M/mm3 (4.2-5.4)
[2023-02-02 06:47] LABS: AST(SGOT) 16 U/L (15-37); Alanine Aminotransfer ALT/SGPT 7 U/L (13-56); Albumin, Serum 2.8 g/dL (3.2-5.0); Alkaline Phosphatase 51 U/L (45-117); Anion Gap 3 (5-15); BUN 26 mg/dL (7-18); BUN/Creat Ratio 23.4 RATIO (10-20); Calcium,Total 8.3 mg/dL (8.5-10.1); Chloride 108 mmol/L (98-107); Creatinine, Serum 1.11 mg/dL (0.55-1.02); EST Glomerular Filtration Rate 50 mL/min (>60); Est Glom Filt Rate - Afr Amer 61 mL/min (>60); Estimated Creatinine Clearance 31.44 ml/min; Globulin 2.8 g/dL (2.2-4.2); Glucose 97 mg/dL (74-106); Potassium 4.1 mmol/L (3.5-5.1); Protein, Total 5.6 g/dL (6.4-8.2); Sodium Level 137 mmol/L (136-145)
--- NOTE | 2023-02-02 07:39 | PCM.PN.HOSP ---
Reason for Visit Reason for Visit: Diagnoses Fracture of unspecified part of neck of left femur, initial encounter for closed fracture (02/01/23) Fracture of unspecified part of neck of unspecified femur, initial encounter for closed fracture (02/01/23) Subjective Subjective Patient with pain in left leg, feels right leg is a little bit sore but no point tenderness and does not hurt like the other leg, denies chest pain or shortness of breath, swelling in left elbow improving Objective Data Objective Data Vital Signs: Vital Signs Temp Pulse Resp BP Pulse Ox O2 Del Method 98.8 F 83 16 116/58 L 97 Room Air 02/02/23 04:39 02/02/23 04:39 02/02/23 04:39 02/02/23 04:39 02/02/23 04:39 02/02/23 06:50 Oxygen Delivery Method Room Air Weight: 73.1 kg Body Mass Index (BMI) 29.6 Intake & Output: Intake and Output for Last 24 Hours 01/31/23 02/01/23 02/02/23 23:59 23:59 23:59 Intake Total 200 / 200 Output Total 550 / 550 200 / 200 Balance -350 / -350 -200 / -200 Lab / Micro Data 02/02/23 05:25 02/02/23 05:25 Labs: Laboratory Results - last 24 hr 02/01/23 14:05: WBC 4.8, RBC 3.93 L, Hgb 10.8 L, Hct 35.2 L, MCV 89.6, MCH 27.5, MCHC 30.7 L, RDW Std Deviation 41.8, RDW Coeff of Aleena 12.6, Plt Count 255, MPV 8.7, Immature Gran % (Auto) 0.200, Neut % (Auto) 60.2, Lymph % (Auto) 28.0, [place] % (Auto) 8.9, Eos % (Auto) 1.7, Baso % (Auto) 1.0, Absolute Neuts (auto) 2.9, Absolute Lymphs (auto) 1.35, Nucleated RBC % 0, PT 14.8, INR 1.2, Sodium 141, Potassium 4.2, Chloride 107, Carbon Dioxide 30.0, Anion Gap 4 L, BUN 16, Creatinine 0.85, Estim Creat Clear Calc 41.05, Est GFR (MDRD) Af Amer 83, Est GFR (MDRD) Non-Af 68, BUN/Creatinine Ratio 18.8, Glucose 98, Calcium 8.6, B-Natriuretic Peptide 145.2 H 02/02/23 05:25: WBC 7.0, RBC 3.29 L, Hgb 9.1 L, Hct 29.0 L, MCV 88.1, MCH 27.7, MCHC 31.4 L, RDW Std Deviation 40.4, RDW Coeff of Aleena 12.6, Plt Count 237, MPV 8.9, Immature Gran % (Auto) 0.400, Neut % (Auto) 62.1, Lymph % (Auto) 25.2, [place] % (Auto) 11.7 H, Eos % (Auto) 0.3, Baso % (Auto) 0.3, Absolute Neuts (auto) 4.4, Absolute Lymphs (auto) 1.77, Nucleated RBC % 0, Sodium 137, Potassium 4.1, Chloride 108 H, Carbon Dioxide 26.0, Anion Gap 3 L, BUN 26 H, Creatinine 1.11 H, Estim Creat Clear Calc 31.44, Est GFR (MDRD) Af Amer 61, Est GFR (MDRD) Non-Af 50 L, BUN/Creatinine Ratio 23.4 H, Glucose 97, Calcium 8.3 L, Total Bilirubin 1.10 H, AST 16, ALT 7 L, Alkaline Phosphatase 51, Total Protein 5.6 L, Albumin 2.8 L, Globulin 2.8, Albumin/Globulin Ratio 1.0 Radiography Diagnostic Testing: Radiology Impression Brain CT 02/01/23 14:00 IMPRESSION: Chronic involutional changes of the brain. Electronically Signed: Chun Martinez MD at 14:52 EDT Reading Location ID and State: [id number] / [employer] , Service support , Chest X-Ray 02/01/23 14:00 IMPRESSION: Normal x-ray examination of the chest. Electronically Signed: Chun Martinez MD at 14:53 EDT Reading Location ID and State: [id number] / [employer] , Service support , Femur X-Ray 02/01/23 14:00 IMPRESSION: Acute distracted fracture of the intertrochanteric left femur. Electronically Signed: Chun Martinez MD at 14:55 EDT Reading Location ID and State: [id number] / [employer] , Service support , Pelvis X-Ray 02/01/23 14:00 IMPRESSION: Acute distracted fracture of the intertrochanteric left femur. Electronically Signed: Chun Martinez MD at 14:54 EDT , Elbow X-Ray 02/01/23 15:12 IMPRESSION: Normal x-ray examination of the elbow. Electronically Signed: Chun Martinez MD at 15:29 EDT Reading Location ID and State: [id number] / [employer] , Service support , Physical Exam Narrative General: Alert, oriented, no apparent distress HEENT: Atraumatic, normocephalic Eyes: Anicteric, normal conjunctiva, extraocular movements grossly intact Neck: Supple Respiratory: Clear to auscultation bilaterally, normal respiratory effort Cardiovascular: Regular rate and rhythm GI: Soft, nontender, nondistended Extremities: SCDs in place Musculoskeletal: Moving all extremities, no point tenderness on right knee or calf Neuro: No overt focal neurological deficits Skin: Some bruising over right elbow Psych: Cooperative Assessment & Plan Assessment/Plan (1) Closed hip fracture: QUALIFIERS: Encounter type: initial encounter Laterality: left Qualified Code(s): S72.002A - Fracture of unspecified part of neck of left femur, initial encounter for closed fracture PLAN: Plan #Displaced left intertrochanteric prox femur fx -Seen on x-ray imaging on presentation -Sustained after a mechanical fall from standing height -Ortho evaluated and recommended left femur cephalomedullary nailing -Holding Plavix to postop -OR this AM -PT/OT will be needed postop #CAD with history of previous inferior wall STEMI -Status post PCI, on aspirin, holding Plavix until postop per recommendation -On Coreg and losartan -Seen by cardiology 12/29/2022 with no new acute concerns at that time #Parkinson's disease -Complicates presentation, maintain on fall precaution, we will continue patient home Sinemet regimen, encourage early follow-up with neurology, PT/OT/case management consultation for discharge planning. #htn -Home meds continued, normotensive this a.m. #Mood disorder NOS -Continue duloxetine #Chronic normocytic anemia -Admission hemoglobin 10.8, is 9.1 today with no evidence of acute bleeding, suspect this is dilutional #DVT ppx: SCDs Darline Lundy MD Time spent in the patient's overall evaluation,decision-making process, review of diagnostic data, adjustment of management, discussion with other providers, nursing nursing and ancillary staff involved in patient's care documentation, 36 minutes Charges/Coding Visit Charges Inpatient E&M: 01445 Subs Hosp L2
[2023-02-02] MEDS: Carbidopa/Levodopa 25/100 Tablet PO ×3 (08:29→20:37)
--- NOTE | 2023-02-02 09:45 | CASEMGMT ---
Discharge Planning A list of?SNF?providers including quality and resource use data and consistent with the patient's preferred geographic region, medical needs, and insurance network was created in [employer] Guide.? This list was provided to the SW. Frida Santamaria, Discharge Planning Asst.
--- NOTE | 2023-02-02 10:50 | CASEMGMT ---
AUGUSTIN HOBBS Discharge Planning Assessment: This RN CM met with pt face to face for initial transition planning/care coordination assessment. Introduced self and role at [facility], pt voices understanding and is agreeable to participating in the assessment with her , daughter Palmira and friend Génesis at bedside. Pt pointed to her friend Génesis and her daughter Palmira as the primary people to contact and address questions to. Care providers, pharmacy, and demographics verified. PCP: Patrizia Arreguin NP Specialists: [facility] (instant print operator), Dr. Dejesus (urology), Dr. Cristina (neurology for Parkinson's) Preferred Pharmacy: [facility] Insurance: [facility] Prescription Benefit: yes Living Will/HPOA: none LNOK: Tee, daughter Palmira, and friend Génesis Living Arrangements: Pt lives with her spouse in her friend Génesis's home. The home is a single story with a ramp entrance. Génesis assists pt with showering and pt is able to dress herself. Pt states her spouse assists intermittently with dressing when needed. Pt's friend Génesis completes household tasks and pt states she is able to assist at times with these tasks. Transportation: friend Génesis provides transportation DME: shower chair, grab bars, BP cuff, pulse oximeter, lift chair and w/c are available if needed HHC: has had in the past but unable to recall the name of the provider SNF: denies any previous provider Plan: TBD Discussed discharge plan will be determined after OR and pt has participated in therapy. Need for therapy explained with possibilities including custodial facility or home health. Pt and family expressed understanding. Will continue to follow and facilitate discharge plan as determined. Juanita Bishop RN CM
[2023-02-02] MEDS: Carvedilol 3.125 MG TABLET PO (11:45)
[2023-02-02] MEDS: Cefazolin 2 GM in 0.9% Normal Saline (100mL Bag) 100 ML IV (14:03)
--- NOTE | 2023-02-02 14:20 | RAD_ITS ---
STUDY: X-RAY - PELVIS AND LEFT HIP REASON FOR EXAM: Female, 82 years old. FX TECHNIQUE: 2 views of the pelvis and hip. COMPARISON: 02/01/2023 FINDINGS: 95 seconds of fluoroscopy of the left hip was utilized operating room during open reduction internal fixation of fracture of the intertrochanteric femur in 7 images are submitted for interpretation. . RAD/Hip Min 2 Views (Portable) IMPRESSION: Fluoroscopy during open reduction internal fixation of fracture of the intertrochanteric femur. Electronically Signed: Chun Martinez MD at 17:15 EDT ,
--- NOTE | 2023-02-02 14:53 | CHAPLAIN ---
Type of Pastoral Visit ___ Initial Visit ___ Follow-up Visit ___ On-call Visit ___ General Patient Visit ___ Spiritual Assessment ___ Family Conference ___ Bereavement ___ Rapid Response ___ Code Blue ___ Other (describe below) Pastoral Care Referral From ___ Patient ___ Family ___ Nurse ___ Physician ___ Rail Setter ___ Artificial Glass Eye Maker ___ Other (describe below) Sacrament/Intervention ___ Active listening ___ Anointing ___ Congregational ___ Bereavement ___ Communion ___ Ashley exploration ___ ___ Life review ___ Prayer ___ Reconciliation ___ Sacrament of Sick ___ Supportive presence ___ Wedding ___ Other (describe below) Pastoral Comments patient and bed are out of the room; left a calling card
[2023-02-02] MEDS: Bupivacaine Mpf 0.5% 30 ML VIAL (14:57)
--- NOTE | 2023-02-02 15:25 | PCM.OPRPT ---
Report of Operation Date of Procedure: 02/02/23 Description of Surgical Findings:: Preoperative diagnosis: Left intertrochanteric proximal femur fracture Postoperative diagnosis: Left intertrochanteric proximal femur fracture Procedure: Treatment of intertrochanteric hip fracture with intramedullary nail left femur Surgeon: Davian Grier DO Anesthesia: General endotracheal Anesthesiologist: Dr. Shepard Complications: None Drains: None Estimated blood loss: 200 cc Urinary output: 100 cc IV fluids: 800 cc crystalloid Specimens: None Surgical implants: Yumiko Gamma3 Cephalomedullary Nail 125 degree 11 mm x 180 mm left, 10.5 mm x 90 mm lag screw, Interlocking screw size 5 mm x 37.5 mm Surgical indications: This is a 82 F who presents presented to [facility] [place] emergency department after a mechanical fall in her kitchen after her foot was caught in a shopping bag and fell onto her left side. Injury happened on 02/01/2023. EMS was called and brought the patient to the emergency department where x-rays revealed a left intertrochanteric proximal femur fracture. She denied any head injury, loss consciousness, syncopal or presyncopal symptoms prior to the fall. Denies any antecedent left hip or groin pain. Patient was admitted under the service of the hospitalist yesterday 02/01/2023. Orthopedics was consulted for surgical recommendations.I recommended cephalomedullary nail fixation of her left intertrochanteric proximal femur fracture. The risks, benefits, alternatives to procedure reviewed with the patient. The risks of the surgery included bleeding, infection, loss of life or limb, malunion, nonunion, damage to vital structures, neurovascular injury, failure of orthopedic hardware, need for additional surgery, persistent pain or disability, risk of anesthesia. The patient expressed understanding of these risks and agreed to proceed with surgery. Blood consent was also obtained. Description of procedure: Patient was seen in preoperative holding area. She was identified by name, medical record number, date of . The operative extremity was marked with a surgical marker. We confirmed informed consent with the patient and questions were answered to her satisfaction. Patient was brought to the operative suite, and general anesthesia was induced on her hospital bed. LMA tube was secured. After adequate anesthesia, patient was transferred to a fracture table with all bony prominences being well-padded. A perineal post was placed to secure the patient on the table. We then applied a ski boot which was well-padded to the operative extremity. The well leg was dropped into extension and secured to the axial post of the fracture table with a pillow and Coban. The left arm was brought across patient's chest with a blanket on her chest. We then performed a closed reduction maneuver with external rotation, traction, internal rotation and adduction. Fluoroscopic images were obtained. Fracture appeared to be acceptably reduced following closed reduction. We then prepped and draped the left lower extremity in normal, sterile orthopedic fashion. A timeout was performed with all parties in attendance in agreement with the side, site, and operation be performed. 2 g Ancef was administered prior to incision. No concerns were voiced and we elected to proceed. I first used fluoroscopy to ju the level of the fracture and planned incision for insertion of the cephalomedullary nail device. In line with the long axis of the femur, 4 fingerbreadths proximal to the tip of the greater trochanter, a full-thickness skin incision was planned.. Skin was sharply incised with 10 blade scalpel, carried into the subcutaneous tissues. The IT band was encountered and split and planned trajectory of the nail placement. The greater trochanter was then able to be palpated digitally. I then placed a threaded guidewire just medial to the tip of the greater trochanter and in the anterior third of it on the lateral. Opening reamer was then placed over top of the guidewire after placement was confirmed on C arm. A ball-tipped guidewire then was passed into the intramedullary canal after reamer was removed. We used C arm to confirm our placement within the bone. Reduction was again confirmed. We selected her nail to be 18 cm x 11 mm diameter. Nail was assembled on the back table. We placed it over the ball-tipped guidewire and impacted to an appropriate depth. Rotation was confirmed on the lateral. Drill sleeve was placed through the targeting guide. We drilled the pin for the lag screw at an appropriate position and depth, tip to apex distance less than 25 mm on AP and lateral combined. Depth gauge was used to measure the length of the screw, 90 mm. We then used the cannulated drill to drill to an appropriate depth. Drill was removed, drill pin left in place. Lag screw was placed over top of the drill pin and tightened to an appropriate depth. Setscrew was then placed and tightened, and then turned back a quarter turn to allow the lag screw to slide. I then drilled for a static interlocking screw in the distal portion of the screw utilizing the outrigger. Skin was incised full-thickness down the level of the IT band which was also split in line with the skin incision. I drilled bicortically through the distal interlocking slot of the nail. I measured for a 37.5 mm interlocking screw which was placed by hand with excellent purchase. Instruments were removed as well as the outrigger for the nail. Final fluoroscopic images were obtained at the hip. Final fluoroscopic images were obtained. We irrigated the wounds copiously with normal saline solution. Hemostasis was excellent at this point. We then closed the deeper layers, IT band with 0 Vicryl. Intradermal buried stitches of 2-0 Vicryl were utilized and skin finally reapproximated with skin reji. Sterile compression dressing of Xeroform, 4 x 4's, and Tegaderm was applied. Patient tolerated procedure well without complication. She was transferred back to her hospital bed and subsequently to PACU in stable condition. Intraoperative medications: 2 g Ancef IV Post Operative Plan: Weightbearing: Weightbearing as tolerated left lower extremity with a walker Antibiotics: Ancef 2 g x 3 doses postoperatively, 1 dose given preoperatively DVT Prophylaxis: Restart home aspirin and Plavix postoperative day #1 Willis: Plan to DC postoperative day #1 Dressing: Dry sterile dressing changes daily and as needed for saturation X-Rays: 2 weeks postop in the office Follow-up: 2 weeks post-operatively with me in the office
[2023-02-02] MEDS: 0.9% Saline Lock 10 ML Syringe IV ×2 (16:45→17:28)
[2023-02-02] MEDS: Ondansetron 4 MG/2 ML Vial IV (16:45)
[2023-02-02] MEDS: Acetaminophen 500 MG Tablet 1000 MG PO (18:58)
[2023-02-02] MEDS: Calcium Carbonate 500 MG Tablet PO (18:58)
[2023-02-02] MEDS: Atorvastatin Calcium 40 MG Tablet PO (20:39)
[2023-02-02] MEDS: Senna/Docusate Sodium 1 Tablet 2 TABLET PO (20:39)
[2023-02-02] MEDS: DULoxetine Hcl 20 MG Capsule PO (20:40)
[2023-02-02] MEDS: Cefazolin 1 GM/50 ML BAG IV (22:19)
[2023-02-03] VITALS (11 sets, daily range): BP systolic 92–142; BP diastolic 43–64; PULSE 74–91; RESP 16–20; TEMP 36.6–37.3; O2SAT 97–99; BMI 29.7
[2023-02-03] MEDS: Acetaminophen 500 MG Tablet 1000 MG PO ×3 (00:31→16:58)
[2023-02-03] MEDS: Cefazolin 1 GM/50 ML BAG IV ×2 (05:16→17:00)
--- NOTE | 2023-02-03 06:01 | PCM.PN.ORT ---
Subjective Subjective Patient seen and examined. Pain controlled with current pain regimen. Out of bed with nursing assistance. Denies fevers, chills, nausea vomiting, chest pain or shortness of breath. Objective Data Objective Data Vital Signs: Vital Signs Temp Pulse Resp BP Pulse Ox O2 Del Method 99.2 F H 86 16 119/53 L 98 Room Air 02/03/23 04:21 02/03/23 04:21 02/03/23 04:21 02/03/23 04:21 02/03/23 04:21 02/03/23 04:21 Oxygen Delivery Method Room Air Weight: 161 lb 13.109 oz Body Mass Index (BMI) 29.7 Intake & Output: Intake and Output for Last 24 Hours 02/01/23 02/02/23 02/03/23 23:59 23:59 23:59 Intake Total 200 / 200 2360 / 2760 650 / 650 Output Total 550 / 550 550 / 750 500 / 500 Balance -350 / -350 1809 150 / 150 Lab / Micro Data 02/02/23 05:25 02/02/23 05:25 Labs: Laboratory Results - last 24 hr 02/02/23 05:25: WBC 7.0, RBC 3.29 L, Hgb 9.1 L, Hct 29.0 L, MCV 88.1, MCH 27.7, MCHC 31.4 L, RDW Std Deviation 40.4, RDW Coeff of Aleena 12.6, Plt Count 237, MPV 8.9, Immature Gran % (Auto) 0.400, Neut % (Auto) 62.1, Lymph % (Auto) 25.2, [place] % (Auto) 11.7 H, Eos % (Auto) 0.3, Baso % (Auto) 0.3, Absolute Neuts (auto) 4.4, Absolute Lymphs (auto) 1.77, Nucleated RBC % 0, Sodium 137, Potassium 4.1, Chloride 108 H, Carbon Dioxide 26.0, Anion Gap 3 L, BUN 26 H, Creatinine 1.11 H, Estim Creat Clear Calc 31.44, Est GFR (MDRD) Af Amer 61, Est GFR (MDRD) Non-Af 50 L, BUN/Creatinine Ratio 23.4 H, Glucose 97, Calcium 8.3 L, Total Bilirubin 1.10 H, AST 16, ALT 7 L, Alkaline Phosphatase 51, Total Protein 5.6 L, Albumin 2.8 L, Globulin 2.8, Albumin/Globulin Ratio 1.0, Vitamin D 25-Hydroxy 34.0, Blood Type B POSITIVE, Antibody Screen NEGATIVE Radiography Diagnostic Testing: Radiology Impression Hip X-Ray 02/02/23 14:20 IMPRESSION: Fluoroscopy during open reduction internal fixation of fracture of the intertrochanteric femur. Electronically Signed: Chun Martinez MD at 17:15 EDT , Physical Exam Narrative General - A&Ox3, NAD. VSS/AF Left lower extremity -incisional dressing C/D/I except for proximal incision demonstrates saturated dressing with serosanguineous drainage. SILT Sural, Saphenous, SPN, DPN, Tibial N. distributions. DP, PT 2+. BCR. DF, PF, EHL 5/5. No calf TTP. Assessment & Plan Assessment/Plan (1) Closed hip fracture: QUALIFIERS: Encounter type: initial encounter Laterality: left Qualified Code(s): S72.002A - Fracture of unspecified part of neck of left femur, initial encounter for closed fracture PLAN: POD#1 s/p left femur CMN - Pain control - Medicine following for medical management - PT/OT-weightbearing as tolerated left lower extremity. - DVT PPX -Multimodal with SCDs, BELEN mickeye, early mobilization, aspirin and Plavix -Dry sterile dressing changes as needed daily. - Case management - D/C planning. Anticipate SNF placement. Morning labs pending. Mobilize with therapy today. Discharge instructions: Dry sterile dressing changes as needed. Okay to remove dressings leave open to air 1 week postoperatively. Okay to shower on postoperative day #4 if no drainage. No tub soaks. Weightbearing as tolerated left lower extremity. Follow-up with me in the office in 2 weeks for staple removal and x-rays. Continue aspirin and Plavix upon discharge.
[2023-02-03 06:22] LABS: Absolute Lymphocyte Count 1.06 X10^3/uL (0.83-4.51); Absolute Neutrophil Count 5.2 X10^3/uL (2.0-7.7); Basophil# 0.02 X10^3/uL; Basophil% 0.3 % (0-1); Eosinophil# 0.01 X10^3/uL; Eosinophils% 0.1 % (0-5); Hematocrit 17.9 % (37-47); Lymphocyte # 1.06 X10^3/ul (0.83-4.51); Lymphocyte % 14.6 % (19-41); Mean Corp Hgb Conc 31.3 g/dL (32-36); Mean Corpuscular Hgb 27.9 pg (27.0-32.0); Mean Corpuscular Volume 89.1 fL (81-99); Mean Platelet Vol. 9.2 fl (6.2-12.0); Monocyte# 0.96 X10^3/uL; Monocyte% 13.2 % (0-10); NRBC Flagged by Analyzer 0 % (0-5); Neutrophil # 5.15 X10^3/uL (2.7-7.7); Neutrophil % 71.1 % (47-70); POSITIVE COUNT YES; Platelet Count 179 K/mm3 (150-450); RBC Distribution Width CV 12.8 % (11.6-14.6); RBC Distribution Width SD 41.5 fl (35.1-43.9); Red Blood Count 2.01 M/mm3 (4.2-5.4); White Blood Count 7.3 K/mm3 (4.4-11.0)
[2023-02-03 06:37] LABS: Differential Indicated SCAN CRITERIA MET; Hemoglobin 5.6 g/dL (12.0-15.0)
[2023-02-03 06:46] LABS: Anion Gap 7 (5-15); BUN 30 mg/dL (7-18); BUN/Creat Ratio 24.4 RATIO (10-20); Calcium,Total 7.2 mg/dL (8.5-10.1); Chloride 108 mmol/L (98-107); Creatinine, Serum 1.23 mg/dL (0.55-1.02); EST Glomerular Filtration Rate 44 mL/min (>60); Est Glom Filt Rate - Afr Amer 54 mL/min (>60); Estimated Creatinine Clearance 28.37 ml/min; Glucose 150 mg/dL (74-106); Potassium 3.9 mmol/L (3.5-5.1); Sodium Level 137 mmol/L (136-145)
[2023-02-03 06:58] LABS: Differential Comment SCANNED; Hypochromasia 1+
--- NOTE | 2023-02-03 07:04 | PCM.HOSP.N ---
Hospitalist Note Since hemoglobin dropped from 9.1-5.6 after surgery. Most likely acute blood loss after surgery, postop anemia. Units PRBC type and crossmatch and transfuse slowly. Patient had a STEMI in December 2021. Aspirin hold. Plavix currently discontinued but informed the attending and might resume when bleeding is stable.
--- NOTE | 2023-02-03 07:17 | PN.HOSP_ITS ---
Reason for Visit Reason for Visit: Diagnoses Fracture of unspecified part of neck of left femur, initial encounter for closed fracture (02/01/23) Fracture of unspecified part of neck of unspecified femur, initial encounter for closed fracture (02/01/23) Subjective Subjective Patient reports pain is better than it was yesterday, has not had bowel movement yet, denies bleeding from anywhere, overall is feeling better than yesterday Objective Data Objective Data Vital Signs: Vital Signs Temp Pulse Resp BP Pulse Ox O2 Del Method 99.2 F H 86 16 119/53 L 98 Room Air 02/03/23 04:21 02/03/23 04:21 02/03/23 04:21 02/03/23 04:21 02/03/23 04:21 02/03/23 04:21 Oxygen Delivery Method Room Air Weight: 73.4 kg Body Mass Index (BMI) 29.7 Intake & Output: Intake and Output for Last 24 Hours 02/01/23 02/02/23 02/03/23 23:59 23:59 23:59 Intake Total 200 / 200 2360 / 2760 650 / 650 Output Total 550 / 550 550 / 750 500 / 500 Balance -350 / -350 1809 150 / 150 Lab / Micro Data 02/03/23 07:45 02/03/23 05:40 Labs: Laboratory Results - last 24 hr 02/02/23 05:25: Vitamin D 25-Hydroxy 34.0, Blood Type B POSITIVE, Antibody Screen NEGATIVE 02/03/23 05:40: WBC 7.3, RBC 2.01 L, Hgb 5.6 L*, Hct 17.9 L, MCV 89.1, MCH 27.9, MCHC 31.3 L, RDW Std Deviation 41.5, RDW Coeff of Aleena 12.8, Plt Count 179, MPV 9.2, Immature Gran % (Auto) 0.700, Neut % (Auto) 71.1 H, Lymph % (Auto) 14.6 L, [place] % (Auto) 13.2 H, Eos % (Auto) 0.1, Baso % (Auto) 0.3, Absolute Neuts (auto) 5.2, Absolute Lymphs (auto) 1.06, Nucleated RBC % 0, Differential Comment SCANNED, Diff Path Review May foll, Hypochromasia 1+, Sodium 137, Potassium 3.9, Chloride 108 H, Carbon Dioxide 22.0, Anion Gap 7, BUN 30 H, Creatinine 1.23 H, Estim Creat Clear Calc 28.37, Est GFR (MDRD) Af Amer 54 L, Est GFR (MDRD) Non-Af 44 L, BUN/Creatinine Ratio 24.4 H, Glucose 150 H, Calcium 7.2 L Radiography Diagnostic Testing: Radiology Impression Hip X-Ray 02/02/23 14:20 IMPRESSION: Fluoroscopy during open reduction internal fixation of fracture of the intertrochanteric femur. Electronically Signed: Chun Martinez MD at 17:15 EDT , Physical Exam Narrative General: Alert, oriented, no apparent distress HEENT: Atraumatic, normocephalic Eyes: Anicteric, normal conjunctiva, extraocular movements grossly intact Neck: Supple Respiratory: Clear to auscultation bilaterally, normal respiratory effort Cardiovascular: Regular rate and rhythm GI: Soft, nontender, nondistended Extremities: SCDs in place Musculoskeletal: Moving all extremities, soft around operative site, minimal bleeding on dressing Neuro: No overt focal neurological deficits Skin: Chronic grayish coloring of skin Psych: Cooperative Assessment & Plan Assessment/Plan (1) Closed hip fracture: QUALIFIERS: Encounter type: initial encounter Laterality: left Qualified Code(s): S72.002A - Fracture of unspecified part of neck of left femur, initial encounter for closed fracture PLAN: Plan #Displaced left intertrochanteric prox femur fx -Seen on x-ray imaging on presentation -Sustained after a mechanical fall from standing height -Ortho evaluated and recommended left femur cephalomedullary nailing -Holding Plavix to postop -OR this AM -PT/OT will be needed postop -02/03: Patient postop from left femur CMN with Dr. rGier. PT/OT, weightbear ing as tolerated left lower extremities. #Postoperative anemia -Patient did receive some fluids and is postop with estimated blood loss of 200 cc per op report some combination may have led to low hemoglobin however still significant drop, we will plan to transfuse and recheck this afternoon, no other evidence of blood loss. Plavix remains on hold and aspirin held this a.m. but will need to resume for stenting and DVT prophylaxis in addition SCDs and BELEN arreguin #CAD with history of previous inferior wall STEMI -Status post PCI, on aspirin, holding Plavix until postop per recommendation -On Coreg and losartan -Seen by cardiology 12/29/2022 with no new acute concerns at that time -02/03: We will need to resume aspirin and Plavix as soon as is reasonable and hemoglobin improves with no evidence of ongoing blood loss #Parkinson's disease -Complicates presentation, maintain on fall precaution, we will continue patient home Sinemet regimen, encourage early follow-up with neurology, PT/OT/case management consultation for discharge planning. -02/03: PT/OT, Sinemet #htn -Home meds continued, normotensive this a.m. -02/03: BP soft after surgery and patient received some fluids, was slightly better this a.m., did have a drop in hemoglobin, patient to be transfused #Mood disorder NOS -Continue duloxetine #Chronic normocytic anemia -Admission hemoglobin 10.8, is 9.1 today with no evidence of acute bleeding, suspect this is dilutional -02/03: See above #DVT ppx: SCDs Darline Lundy MD Time spent in the patient's overall evaluation,decision-making process, review of diagnostic data, adjustment of management, discussion with other providers, nursing nursing and ancillary staff involved in patient's care documentation, 40 minutes Charges/Coding Visit Charges Inpatient E&M: 96515 Subs Hosp L2
[2023-02-03] MEDS: Calcium Carbonate 500 MG Tablet PO ×3 (09:11→16:57)
[2023-02-03] MEDS: DULoxetine Hcl 20 MG Capsule PO ×2 (09:11→21:46)
[2023-02-03] MEDS: Carbidopa/Levodopa 25/100 Tablet PO ×4 (09:11→21:45)
[2023-02-03] MEDS: Tolterodine Tartrate 2 MG CAP.SA PO (09:11)
[2023-02-03] MEDS: Menthol/Lanolin/Calamine/Znox 113 GM Tube 1 APPLIC TOPICAL ×3 (09:12→21:45)
[2023-02-03] MEDS: Cholecalciferol (VIT D3) 25 MCG TABLET (1,000 UNITS) PO (09:12)
[2023-02-03] MEDS: Senna/Docusate Sodium 1 Tablet 2 TABLET PO ×2 (09:12→21:46)
[2023-02-03 13:14] LABS: Pathologist Review Reviewed
--- NOTE | 2023-02-03 13:16 | CASEMGMT ---
Social Work SW attempted to speak with pt several times but pt unavailable. SW phoned to inquire about DC plan - home with [facility] vs SNF. Informed therapy is on hold d/t H[facility], but will evaluate and give recommendations after. stated pt will make that decision as she knows what she can handle or not. SW agreed. PLAN: will await therapy recommendations and have conversation with pt. [facility] vs SNF Lizet Larios, TONE CABINET ASSEMBLER ISOTOPE TECHNICIAN
--- NOTE | 2023-02-03 14:59 | CHAPLAIN ---
Type of Pastoral Visit _x__ Initial Visit ___ Follow-up Visit ___ On-call Visit ___ General Patient Visit ___ Spiritual Assessment ___ Family Conference ___ Bereavement ___ Rapid Response ___ Code Blue ___ Other (describe below) Pastoral Care Referral From _x__ Patient ___ Family ___ Nurse ___ Physician ___ Assistant Grocery ___ Assembler Lay Ups ___ Other (describe below) Sacrament/Intervention _x__ Active listening ___ Anointing ___ Congregational ___ Bereavement ___ Communion ___ Ashley exploration ___ _x__ Life review _x__ Prayer ___ Reconciliation ___ Sacrament of Sick _x__ Supportive presence ___ Wedding ___ Other (describe below) Pastoral Comments patient speaks about family and her decision to move back to [place] due to better health conditions; pt is of the [employer] ashley and wants spiritual care while in the hospital; pt is dealing with her Parkinson's as best she can
--- NOTE | 2023-02-03 16:56 | CASEMGMT ---
Social Work Reviewed chart. No recommendations yet about need for further therapy. Noted therapy has tried to see patient several times today but due to patient's other care needs evaluations not yet completed. SW to follow along, and will plan to meet with patient to discuss patient's wishes once patient is able to see how she is able to get up and move. PLAN: Anticipate HHC versus short term SNF for rehab. -YSABEL Kumar
[2023-02-03 18:22] LABS: Hematocrit 25.4 % (37-47); Hemoglobin 8.4 g/dL (12.0-15.0); Mean Corp Hgb Conc 33.1 g/dL (32-36); Mean Corpuscular Hgb 29.1 pg (27.0-32.0); Mean Corpuscular Volume 87.9 fL (81-99); Mean Platelet Vol. 8.8 fl (6.2-12.0); Platelet Count 165 K/mm3 (150-450); RBC Distribution Width CV 13.2 % (11.6-14.6); Red Blood Count 2.89 M/mm3 (4.2-5.4); White Blood Count 8.4 K/mm3 (4.4-11.0)
--- NOTE | 2023-02-03 21:10 | NURSING ---
Attempted to get pt to the bedside. pt not wanting to put any weight on left side. Nurse and Lawn Service Worker struggled to stand pt up. Pt wanted us to pick her up and put her on the bedside commode. We was unable to. Jeni placed and explained to pt that pt needs to work with her more
[2023-02-03] MEDS: Atorvastatin Calcium 40 MG Tablet PO (21:46)
[2023-02-03] MEDS: 0.9% Saline Lock 10 ML Syringe IV (21:46)
[2023-02-04] MEDS: Acetaminophen 500 MG Tablet 1000 MG PO ×3 (01:11→17:00)
[2023-02-04 04:54] VITALS: BP 133/67; PULSE 97; RESP 18; TEMP 36.8; O2SAT 98
[2023-02-04 05:01] VITALS: BMI 30.2
[2023-02-04 06:21] LABS: Absolute Lymphocyte Count 1.27 X10^3/uL (0.83-4.51); Basophil# 0.03 X10^3/uL; Basophil% 0.4 % (0-1); Eosinophil# 0.05 X10^3/uL; Eosinophils% 0.6 % (0-5); Hematocrit 23.8 % (37-47); Hemoglobin 8.1 g/dL (12.0-15.0); Lymphocyte # 1.27 X10^3/ul (0.83-4.51); Mean Corpuscular Hgb 29.5 pg (27.0-32.0); Mean Corpuscular Volume 86.5 fL (81-99); Mean Platelet Vol. 8.8 fl (6.2-12.0); Monocyte# 1.05 X10^3/uL; Monocyte% 12.4 % (0-10); NRBC Flagged by Analyzer 0.2 % (0-5); Neutrophil # 5.99 X10^3/uL (2.7-7.7); Neutrophil % 70.8 % (47-70); Platelet Count 166 K/mm3 (150-450); RBC Distribution Width CV 13.2 % (11.6-14.6); RBC Distribution Width SD 41.2 fl (35.1-43.9); Red Blood Count 2.75 M/mm3 (4.2-5.4); White Blood Count 8.5 K/mm3 (4.4-11.0)
[2023-02-04 06:52] LABS: Anion Gap 6 (5-15); BUN 17 mg/dL (7-18); Calcium,Total 7.9 mg/dL (8.5-10.1); Chloride 109 mmol/L (98-107); Creatinine, Serum 0.81 mg/dL (0.55-1.02); EST Glomerular Filtration Rate 72 mL/min (>60); Est Glom Filt Rate - Afr Amer 87 mL/min (>60); Estimated Creatinine Clearance 43.08 ml/min; Glucose 106 mg/dL (74-106); Potassium 3.7 mmol/L (3.5-5.1); Sodium Level 139 mmol/L (136-145)
--- NOTE | 2023-02-04 07:10 | PCM.PN.HOSP ---
Reason for Visit Reason for Visit: Diagnoses Fracture of unspecified part of neck of left femur, initial encounter for closed fracture (02/01/23) Fracture of unspecified part of neck of unspecified femur, initial encounter for closed fracture (02/01/23) Subjective Subjective Feeling much better, pain better today as well, anxious to be discharged Objective Data Objective Data Vital Signs: Vital Signs Temp Pulse Resp BP Pulse Ox O2 Del Method 98.2 F 97 18 133/67 H 98 Room Air 02/04/23 04:54 02/04/23 04:54 02/04/23 04:54 02/04/23 04:54 02/04/23 04:54 02/04/23 04:54 Oxygen Delivery Method Room Air Weight: 74.417 kg Body Mass Index (BMI) 30.2 Intake & Output: Intake and Output for Last 24 Hours 02/02/23 02/03/23 02/04/23 23:59 23:59 23:59 Intake Total 2360 / 2760 2600 / 2600 120 / 120 Output Total 550 / 750 1025 / 1025 1100 / 1100 Balance 1809 1575 / 1575 -980 / -980 Lab / Micro Data 02/04/23 05:55 02/04/23 05:55 Labs: Laboratory Results - last 24 hr 02/02/23 05:25: Crossmatch See Detail 02/03/23 05:40: Diff Path Review Reviewed 02/03/23 07:45: Hgb 5.6 L* 02/03/23 18:15: WBC 8.4, RBC 2.89 L, Hgb 8.4 L, Hct 25.4 L, MCV 87.9, MCH 29.1, MCHC 33.1 D, RDW Std Deviation 42.0, RDW Coeff of Aleena 13.2, Plt Count 165, MPV 8.8 02/04/23 05:55: WBC 8.5, RBC 2.75 L, Hgb 8.1 L, Hct 23.8 L, MCV 86.5, MCH 29.5, MCHC 34.0, RDW Std Deviation 41.2, RDW Coeff of Aleena 13.2, Plt Count 166, MPV 8.8, Immature Gran % (Auto) 0.800, Neut % (Auto) 70.8 H, Lymph % (Auto) 15.0 L, [place] % (Auto) 12.4 H, Eos % (Auto) 0.6, Baso % (Auto) 0.4, Absolute Neuts (auto) 6.0, Absolute Lymphs (auto) 1.27, Nucleated RBC % 0.2, Sodium 139, Potassium 3.7, Chloride 109 H, Carbon Dioxide 24.0, Anion Gap 6, BUN 17, Creatinine 0.81, Estim Creat Clear Calc 43.08, Est GFR (MDRD) Af Amer 87, Est GFR (MDRD) Non-Af 72, BUN/Creatinine Ratio 21.0 H, Glucose 106, Calcium 7.9 L Physical Exam Narrative General: Alert, oriented, no apparent distress HEENT: Atraumatic, normocephalic Eyes: Anicteric, normal conjunctiva, extraocular movements grossly intact Neck: Supple Respiratory: Clear to auscultation bilaterally, normal respiratory effort Cardiovascular: Regular rate and rhythm GI: Soft, nontender, nondistended Extremities: SCDs in place Musculoskeletal: Moving all extremities Neuro: No overt focal neurological deficits Skin: Chronic grayish coloring of skin Psych: Cooperative Assessment & Plan Assessment/Plan (1) Closed hip fracture: QUALIFIERS: Encounter type: initial encounter Laterality: left Qualified Code(s): S72.002A - Fracture of unspecified part of neck of left femur, initial encounter for closed fracture PLAN: Plan #Displaced left intertrochanteric prox femur fx -Seen on x-ray imaging on presentation -Sustained after a mechanical fall from standing height -Ortho evaluated and recommended left femur cephalomedullary nailing -Holding Plavix to postop -OR this AM -PT/OT will be needed postop -02/03: Patient postop from left femur CMN with Dr. Grier. PT/OT, weightbearing as tolerated left lower extremities. -02/04: Pain control, PT/OT, may need placement versus home health pending PT eval #Postoperative anemia -Patient did receive some fluids and is postop with estimated blood loss of 200 cc per op report some combination may have led to low hemoglobin however still significant drop, we will plan to transfuse and recheck this afternoon, no other evidence of blood loss. Plavix remains on hold and aspirin held this a.m. but will need to resume for stenting and DVT prophylaxis in addition SCDs and BELEN hose -02/04: Hemoglobin stable status posttransfusion, resume aspirin and Plavix #CAD with history of previous inferior wall STEMI -Status post PCI, on aspirin, holding Plavix until postop per recommendation -On Coreg and losartan -Seen by cardiology 12/29/2022 with no new acute concerns at that time -02/03: We will need to resume aspirin and Plavix as soon as is reasonable and hemoglobin improves with no evidence of ongoing blood loss -02/04: Hemoglobin stable, aspirin and Plavix resumed #Parkinson's disease -Complicates presentation, maintain on fall precaution, we will continue patient home Sinemet regimen, encourage early follow-up with neurology, PT/OT/case management consultation for discharge planning. -02/03: PT/OT, Sinemet #htn -Home meds continued, normotensive this a.m. -02/03: BP soft after surgery and patient received some fluids, was slightly better this a.m., did have a drop in hemoglobin, patient to be transfused -02/04: Improved with blood administration #Mood disorder NOS -Continue duloxetine #Chronic normocytic anemia -Admission hemoglobin 10.8, is 9.1 today with no evidence of acute bleeding, suspect this is dilutional -02/03: See above #DVT ppx: SCDs, aspirin, Plavix Darline Lundy MD Time spent in the patient's overall evaluation,decision-making process, review of diagnostic data, adjustment of management, discussion with other providers, nursing nursing and ancillary staff involved in patient's care documentation, 40 minutes Charges/Coding Visit Charges Inpatient E&M: 80096 [facility] Hosp L2
[2023-02-04 07:26] VITALS: BP 107/53; PULSE 97; RESP 18; TEMP 36.6; O2SAT 98
[2023-02-04 07:27] VITALS: O2SAT 93
[2023-02-04] MEDS: Carbidopa/Levodopa 25/100 Tablet PO ×4 (07:38→20:02)
[2023-02-04] MEDS: Calcium Carbonate 500 MG Tablet PO ×3 (07:38→16:54)
[2023-02-04] MEDS: Aspirin E.C. 81 MG Tablet PO (07:38)
[2023-02-04] MEDS: Clopidogrel Bisulfate 75 MG Tablet PO (09:22)
[2023-02-04] MEDS: Cholecalciferol (VIT D3) 25 MCG TABLET (1,000 UNITS) PO (09:23)
[2023-02-04] MEDS: Senna/Docusate Sodium 1 Tablet 2 TABLET PO ×2 (09:23→20:03)
[2023-02-04] MEDS: Tolterodine Tartrate 2 MG CAP.SA PO (09:23)
[2023-02-04] MEDS: DULoxetine Hcl 20 MG Capsule PO ×2 (09:23→20:03)
[2023-02-04] MEDS: Menthol/Lanolin/Calamine/Znox 113 GM Tube 1 APPLIC TOPICAL ×4 (09:26→20:03)
--- NOTE | 2023-02-04 11:31 | CASEMGMT ---
Social Work SW met with pt, pt's spouse and pt's friend Génesis and introduced self and role of SW. Pt lives with her spouse and with Génesis. SW reviewed therapy notes and discussed recommendations for SNF. Pt is agreeable and states her first choice is [facility] and second choice is [facility]. A list of SNF providers including quality and resource use data and consistent with the patient?s preferred geographic region, medical needs, and insurance network were provided from the [employer] Guide. Pt did not feel she needed to review this list as she has already made her decision. List left in pt room. Referral to be sent to [facility] SNF. SANCHEZ Sauceda
--- NOTE | 2023-02-04 11:43 | CASEMGMT ---
Discharge Planning Referral sent to [facility] via [facility]. Frida Santamaria, Discharge Planning Asst.
[2023-02-04 13:03] VITALS: BP 131/55; PULSE 92; RESP 18; TEMP 36.7; O2SAT 100
--- NOTE | 2023-02-04 15:31 | CASEMGMT ---
Social Work [facility] is unable to accept pt but [place] is able to accept and precert is started at this time. SW met with pt and informed and pt is agreeable to dc to [facility]. Pt states she will notify her family. Plan: [facility], pending precert SANCHEZ Sauceda
[2023-02-04 17:02] VITALS: BP 122/45; PULSE 94; RESP 18; TEMP 36.7; O2SAT 100
[2023-02-04 19:57] VITALS: BP 116/47; PULSE 88; RESP 18; TEMP 36.8; O2SAT 100
[2023-02-04] MEDS: Atorvastatin Calcium 40 MG Tablet PO (20:04)
[2023-02-05] MEDS: Acetaminophen 500 MG Tablet 1000 MG PO ×3 (01:01→17:57)
[2023-02-05 03:00] VITALS: BP 147/68; PULSE 90; RESP 18; TEMP 36.7; O2SAT 100
[2023-02-05 05:03] VITALS: BMI 29.8
[2023-02-05 06:01] LABS: Absolute Lymphocyte Count 1.63 X10^3/uL (0.83-4.51); Absolute Neutrophil Count 5.9 X10^3/uL (2.0-7.7); Basophil# 0.03 X10^3/uL; Basophil% 0.3 % (0-1); Eosinophil# 0.12 X10^3/uL; Eosinophils% 1.4 % (0-5); Hematocrit 23.9 % (37-47); Lymphocyte # 1.63 X10^3/ul (0.83-4.51); Lymphocyte % 18.8 % (19-41); Mean Corp Hgb Conc 33.5 g/dL (32-36); Mean Corpuscular Hgb 29.6 pg (27.0-32.0); Mean Corpuscular Volume 88.5 fL (81-99); Mean Platelet Vol. 8.8 fl (6.2-12.0); Monocyte# 0.98 X10^3/uL; Monocyte% 11.3 % (0-10); NRBC Flagged by Analyzer 0 % (0-5); Neutrophil # 5.89 X10^3/uL (2.7-7.7); Neutrophil % 67.7 % (47-70); Platelet Count 205 K/mm3 (150-450); RBC Distribution Width CV 13.8 % (11.6-14.6); RBC Distribution Width SD 43.2 fl (35.1-43.9); White Blood Count 8.7 K/mm3 (4.4-11.0)
[2023-02-05 06:35] LABS: Anion Gap 5 (5-15); BUN 16 mg/dL (7-18); Chloride 106 mmol/L (98-107); EST Glomerular Filtration Rate 86 mL/min (>60); Est Glom Filt Rate - Afr Amer 104 mL/min (>60); Glucose 103 mg/dL (74-106); Potassium 3.6 mmol/L (3.5-5.1); Sodium Level 138 mmol/L (136-145)
[2023-02-05 08:20] VITALS: BP 147/67; PULSE 88; RESP 20; TEMP 36.6; O2SAT 100
[2023-02-05] MEDS: Aspirin E.C. 81 MG Tablet PO (08:32)
[2023-02-05] MEDS: Clopidogrel Bisulfate 75 MG Tablet PO (08:34)
[2023-02-05] MEDS: DULoxetine Hcl 20 MG Capsule PO ×2 (08:34→21:39)
[2023-02-05] MEDS: Tolterodine Tartrate 2 MG CAP.SA PO (08:34)
[2023-02-05] MEDS: Senna/Docusate Sodium 1 Tablet 2 TABLET PO ×2 (08:35→21:41)
[2023-02-05] MEDS: Cholecalciferol (VIT D3) 25 MCG TABLET (1,000 UNITS) PO (08:35)
[2023-02-05] MEDS: Carbidopa/Levodopa 25/100 Tablet PO ×4 (08:37→21:40)
[2023-02-05] MEDS: Calcium Carbonate 500 MG Tablet PO ×3 (08:37→16:17)
[2023-02-05] MEDS: Menthol/Lanolin/Calamine/Znox 113 GM Tube 1 APPLIC TOPICAL ×4 (08:39→21:42)
[2023-02-05 09:22] LABS: Hemoglobin 5.6 g/dL (12.0-15.0)
[2023-02-05 12:03] VITALS: BP 105/50; PULSE 88; RESP 18; TEMP 36.7; O2SAT 100
[2023-02-05] MEDS: HYDROcodone Bitartrate/Apap 5/325 Tablet PO ×2 (14:48→21:41)
[2023-02-05 15:00] VITALS: BP 145/61; PULSE 95; RESP 18; TEMP 37.5; O2SAT 98
--- NOTE | 2023-02-05 16:51 | PN.HOSP_ITS ---
Reason for Visit Reason for Visit: Diagnoses Fracture of unspecified part of neck of left femur, initial encounter for closed fracture (02/01/23) Fracture of unspecified part of neck of unspecified femur, initial encounter for closed fracture (02/01/23) Subjective Subjective Patient feeling better today, reports right leg also feels better and left elbow is less painful Objective Data Objective Data Vital Signs: Vital Signs Temp Pulse Resp BP Pulse Ox O2 Del Method 98.1 F 88 18 105/50 L 100 Room Air 02/05/23 12:03 02/05/23 12:03 02/05/23 12:03 02/05/23 12:03 02/05/23 12:03 02/05/23 12:03 Oxygen Delivery Method Room Air Weight: 73.5 kg Body Mass Index (BMI) 29.8 Intake & Output: Intake and Output for Last 24 Hours 02/03/23 02/04/23 02/05/23 23:59 23:59 23:59 Intake Total 2600 / 2600 960 / 960 Output Total 1025 / 1025 1900 / 1900 1500 / 1500 Balance 1575 / 1575 -940 / -940 -1500 / -1500 Lab / Micro Data 02/05/23 05:40 02/05/23 05:40 Labs: Laboratory Results - last 24 hr 02/03/23 07:45: Hgb 5.6 L* 02/05/23 05:40: WBC 8.7, RBC 2.70 L, Hgb 8.0 L, Hct 23.9 L, MCV 88.5, MCH 29.6, MCHC 33.5, RDW Std Deviation 43.2, RDW Coeff of Aleena 13.8, Plt Count 205, MPV 8.8, Immature Gran % (Auto) 0.500, Neut % (Auto) 67.7, Lymph % (Auto) 18.8 L, [place] % (Auto) 11.3 H, Eos % (Auto) 1.4, Baso % (Auto) 0.3, Absolute Neuts (auto) 5.9, Absolute Lymphs (auto) 1.63, Nucleated RBC % 0, Sodium 138, Potassium 3.6, Chloride 106, Carbon Dioxide 27.0, Anion Gap 5, BUN 16, Creatinine 0.70, Estim Creat Clear Calc 34.90, Est GFR (MDRD) Af Amer 104, Est GFR (MDRD) Non-Af 86, BUN/Creatinine Ratio 23.0 H, Glucose 103, Calcium 8.0 L Physical Exam Narrative General: Alert, oriented, no apparent distress HEENT: Atraumatic, normocephalic Eyes: Anicteric, normal conjunctiva, extraocular movements grossly intact Neck: Supple Respiratory: Clear to auscultation bilaterally, normal respiratory effort Cardiovascular: Regular rate and rhythm GI: Soft, nontender, nondistended Extremities: SCDs in place Musculoskeletal: Moving all extremities Neuro: No overt focal neurological deficits Skin: Chronic grayish coloring of skin Psych: Cooperative Assessment & Plan Assessment/Plan (1) Closed hip fracture: QUALIFIERS: Encounter type: initial encounter Laterality: left Qualified Code(s): S72.002A - Fracture of unspecified part of neck of left femur, initial encounter for closed fracture PLAN: Plan #Displaced left intertrochanteric prox femur fx -Seen on x-ray imaging on presentation -Sustained after a mechanical fall from standing height -Ortho evaluated and recommended left femur cephalomedullary nailing -Holding Plavix to postop -OR this AM -PT/OT will be needed postop -02/03: Patient postop from left femur CMN with Dr. Grier. PT/OT, weightbearing as tolerated left lower extremities. -02/04: Pain control, PT/OT, may need placement versus home health pending PT eval -02/05: Plan for SNF for patient, awaiting pre-CERT #Postoperative anemia -Patient did receive some fluids and is postop with estimated blood loss of 200 cc per op report some combination may have led to low hemoglobin however still significant drop, we will plan to transfuse and recheck this afternoon, no other evidence of blood loss. Plavix remains on hold and aspirin held this a.m. but will need to resume for stenting and DVT prophylaxis in addition SCDs and BELEN hose -02/04: Hemoglobin stable status posttransfusion, resume aspirin and Plavix -02/05: Remains stable, awaiting placement #CAD with history of previous inferior wall STEMI -Status post PCI, on aspirin, holding Plavix until postop per recommendation -On Coreg and losartan -Seen by cardiology 12/29/2022 with no new acute concerns at that time -02/03: We will need to resume aspirin and Plavix as soon as is reasonable and hemoglobin improves with no evidence of ongoing blood loss -02/04: Hemoglobin stable, aspirin and Plavix resumed #Parkinson's disease -Complicates presentation, maintain on fall precaution, we will continue patient home Sinemet regimen, encourage early follow-up with neurology, PT/OT/case management consultation for discharge planning. -02/03: PT/OT, Sinemet #htn -Home meds continued, normotensive this a.m. -02/03: BP soft after surgery and patient received some fluids, was slightly better this a.m., did have a drop in hemoglobin, patient to be transfused -02/04: Improved with blood administration #Mood disorder NOS -Continue duloxetine #Chronic normocytic anemia -Admission hemoglobin 10.8, is 9.1 today with no evidence of acute bleeding, suspect this is dilutional -02/03: See above #DVT ppx: SCDs, aspirin, Plavix Darline Lundy MD Time spent in the patient's overall evaluation,decision-making process, review of diagnostic data, adjustment of management, discussion with other providers, nursing nursing and ancillary staff involved in patient's care documentation, 26 minutes Charges/Coding Visit Charges Inpatient E&M: 69541 Subs Hosp L1
[2023-02-05 21:33] VITALS: BP 114/52; PULSE 84; RESP 18; TEMP 36.8; O2SAT 98
[2023-02-05] MEDS: Atorvastatin Calcium 40 MG Tablet PO (21:41)
[2023-02-05] MEDS: 0.9% Saline Lock 10 ML Syringe IV (21:43)
[2023-02-06 01:57] VITALS: BP 122/50; PULSE 93; RESP 20; TEMP 36.9; O2SAT 97
[2023-02-06] MEDS: 0.9% Saline Lock 10 ML Syringe IV (02:00)
[2023-02-06] MEDS: Acetaminophen 500 MG Tablet 1000 MG PO ×2 (02:00→09:39)
[2023-02-06 05:46] VITALS: BMI 31.1
[2023-02-06 05:50] VITALS: BP 123/56; PULSE 80; RESP 16; TEMP 36.7; O2SAT 99
[2023-02-06 06:32] LABS: Absolute Lymphocyte Count 2.15 X10^3/uL (0.83-4.51); Absolute Neutrophil Count 3.9 X10^3/uL (2.0-7.7); Basophil# 0.03 X10^3/uL; Basophil% 0.4 % (0-1); Eosinophil# 0.18 X10^3/uL; Eosinophils% 2.6 % (0-5); Hematocrit 22.4 % (37-47); Hemoglobin 7.1 g/dL (12.0-15.0); Lymphocyte # 2.15 X10^3/ul (0.83-4.51); Lymphocyte % 30.5 % (19-41); Mean Corp Hgb Conc 31.7 g/dL (32-36); Mean Corpuscular Hgb 28.7 pg (27.0-32.0); Mean Corpuscular Volume 90.7 fL (81-99); Mean Platelet Vol. 8.9 fl (6.2-12.0); Monocyte# 0.72 X10^3/uL; Monocyte% 10.2 % (0-10); NRBC Flagged by Analyzer 0 % (0-5); Neutrophil # 3.91 X10^3/uL (2.7-7.7); Neutrophil % 55.6 % (47-70); Platelet Count 227 K/mm3 (150-450); RBC Distribution Width CV 14.2 % (11.6-14.6); RBC Distribution Width SD 45.7 fl (35.1-43.9); Red Blood Count 2.47 M/mm3 (4.2-5.4)
[2023-02-06 07:00] LABS: Anion Gap 3 (5-15); BUN 16 mg/dL (7-18); BUN/Creat Ratio 25.2 RATIO (10-20); Calcium,Total 7.9 mg/dL (8.5-10.1); Chloride 108 mmol/L (98-107); Creatinine, Serum 0.64 mg/dL (0.55-1.02); EST Glomerular Filtration Rate 95 mL/min (>60); Est Glom Filt Rate - Afr Amer 115 mL/min (>60); Glucose 90 mg/dL (74-106); Potassium 4.2 mmol/L (3.5-5.1); Sodium Level 140 mmol/L (136-145)
[2023-02-06 08:50] VITALS: O2SAT 97
[2023-02-06 08:59] LABS: Hemoglobin 7.8 g/dL (12.0-15.0)
--- NOTE | 2023-02-06 09:00 | CASEMGMT ---
Discharge Planning Requested clinical updates sent to [place] via [facility]. Frida Santamaria, Discharge Planning Asst.
[2023-02-06 09:33] VITALS: BP 147/66; PULSE 84; RESP 16; TEMP 36.6; O2SAT 99
[2023-02-06] MEDS: Calcium Carbonate 500 MG Tablet PO ×2 (09:35→11:27)
[2023-02-06] MEDS: Aspirin E.C. 81 MG Tablet PO (09:35)
[2023-02-06] MEDS: Carbidopa/Levodopa 25/100 Tablet PO ×2 (09:35→11:27)
[2023-02-06] MEDS: Menthol/Lanolin/Calamine/Znox 113 GM Tube 1 APPLIC TOPICAL ×2 (09:35→14:07)
--- NOTE | 2023-02-06 09:35 | CASEMGMT ---
Social Work Pt requesting to see SW. Pt anxious about discharge plan, 's well being and caregivers ability to provide care prison care. SW encouraged verbalization of feelings and provided emotional support. SW reviewed discharge plan with pt. Pt to go to [facility] for short term rehab prior to making future plans. SW explained process to get to SNF and what would happen once at [facility]. Phone call made to pt's daughter Palmira Stone who has pt's staying with her. SW updated Palmira to dc plan and Palmira also reassured pt to 's well being and need for SNF. SW will remain available for support as needed. Precert for SNF is pending. Clinical updates to be sent this morning. Plan[facility], pending precSANCHEZ Armstrong
[2023-02-06] MEDS: Tolterodine Tartrate 2 MG CAP.SA PO (09:36)
[2023-02-06] MEDS: DULoxetine Hcl 20 MG Capsule PO (09:36)
[2023-02-06] MEDS: Clopidogrel Bisulfate 75 MG Tablet PO (09:36)
[2023-02-06] MEDS: Cholecalciferol (VIT D3) 25 MCG TABLET (1,000 UNITS) PO (09:36)
[2023-02-06] MEDS: Senna/Docusate Sodium 1 Tablet 2 TABLET PO (09:36)
--- NOTE | 2023-02-06 12:30 | PCM.TXEXTCAR ---
Diet Diet Order/Speech Therapy: 02/03/23 09:42 Diet: Regular - General Is pt able to select menu?: Yes Routine Orders/Code Status Suppository Type: Dulcolax 10mg Suppository Frequency: Daily PRN Wound(s) l hip: Wound Type: Surgical Incision LEFT UPPER HIP: Wound Type: Surgical Incision Therapies Physical Therapy: Eval and Treat Occupational Therapy: Eval and Treat Problem/Diagnosis (1) Closed hip fracture: Status: Acute Code(s): S72.009A - Fracture of unspecified part of neck of unspecified femur, initial encounter for closed fracture Plan #Displaced left intertrochanteric prox femur fx #Postoperative anemia s/p transfusion, stabilized #Parkinson's disease #htn #Mood disorder NOS #Chronic normocytic anemia The patient is an 82 y/o F w/ PMHx: CAD s/p PCI, HTN, HLD, COPD, Parkinson's disease, Chronic urgency/bladder spasms following with Urology, Gout, Fibromyalgia, Hx usage silver water with chronically silver skin hue, Obesity who presents to the [facility] ED on 02/01/23 with history of mechanical fall with subsequent left hip pain and was found to have displaced left intertrochanteric proximal femur fracture on x-ray. Was taken to the OR on 02/02 for left femur CMN with Dr. Grier. Patient did have complication of postop anemia requiring transfusion and then hemoglobin stabilized and remained stable with resumption of aspirin and Plavix. Worked w/ PT and recommended SNF. D/c'd in stable condition to SNF. Discharge instructions as follows: -Dry sterile dressing changes as needed -Okay to remove dressings leave open to air 1 week postoperatively -Okay to shower on postoperative day #4 if no drainage. No tub soaks -Weightbearing as tolerated left lower extremity -Follow-up with Dr. Grier with orthopedics in the office in 2 weeks for staple removal and x-rays. -Please call your primary care provider's office upon discharge to schedule a hospital follow up within 1 week. -For any concerning signs or symptoms please call 911 or proceed to the nearest emergency department Allergies/Procedures Done in Hospital Allergies oxycodone [From Percocet] Allergy (Severe, Verified 12/29/22 13:45) Hives Procedures: - (left femur CMN) Type of Care/Length of Stay Estimated LOS: Convalescent Care Less Than 30 days Type of Care Needed: Skilled Rehab Potential: Fair Prognosis: Fair Additional Orders/Day of Discharge Day of Discharge: 02/06/23 Discharge Plan Admission Admit Date/Time: 02/01/23 15:26 Primary Reason for Your Visit: Fall and left hip/leg pain Attending Provider: Darline Lundy Primary Care Provider: Patrizia Arreguin NP Consulting Providers: Jasmin Steele; Davian Grier Instructions Patient Instructions: ED Fall Prevention Additional Instructions / Restrictions: DISCHARGE INSTRUCTIONS PLEASE READ *Please take this with you to your next doctors appointment* -Dry sterile dressing changes as needed -Okay to remove dressings leave open to air 1 week postoperatively -Okay to shower on postoperative day #4 if no drainage. No tub soaks -Weightbearing as tolerated left lower extremity -Follow-up with Dr. Grier with orthopedics in the office in 2 weeks for staple removal and x-rays. -Please call your primary care provider's office upon discharge to schedule a hospital follow up within 1 week. -For any concerning signs or symptoms please call 911 or proceed to the nearest emergency department Discharge Orders/Prescriptions Prescriptions: Continued fesoterodine 4 mg tablet extended release 24 hr 4 mg PO DAILY carvedilol 3.125 mg tablet 3.125 mg PO BID Qty: 60 12RF Rx Instructions: must administer with a meal/food carbidopa-levodopa 25-100 mg tablet 1.5 tab PO ONCE carbidopa-levodopa 25-100 mg tablet 2 tab PO TID duloxetine 20 mg capsule,delayed release(DR/EC) 20 mg PO BID Rx Instructions: Start the medication at once a day for 15 days then start taking 2 x a day escitalopram oxalate 10 mg tablet 10 mg PO DAILY losartan 25 mg tablet 25 mg PO DAILY Qty: 90 3RF aspirin [Adult Aspirin Regimen] 81 mg tablet,delayed release (DR/EC) 81 mg PO DAILY trazodone 50 mg tablet 50 mg PO QHS PRN (Reason: sleep) cholecalciferol (vitamin D3) 25 mcg (1,000 unit) capsule 25 mcg PO DAILY clopidogrel [Plavix] 75 mg tablet 75 mg PO DAILY Qty: 90 3RF atorvastatin 40 mg tablet 40 mg PO DAILY Qty: 90 3RF Referrals / Follow Up: Davian Grier DO [Med Staff - Active Staff] - 02/18/23 Patrizia Arreguin [employer] OPERATOR, [employer] OPERATOR-C [Primary Care Provider] - Disposition Disposition (needs filled in before D/C Order can be placed): Long-Term Facility (1) Closed hip fracture Qualifiers: Encounter type: initial encounter Laterality: left Qualified Code(s): S72.002A - Fracture of unspecified part of neck of left femur, initial encounter for closed fracture
--- NOTE | 2023-02-06 12:34 | DS.PCM_ITS ---
Providers Date of Admission: 02/01/23 Date of Discharge: 02/06/23 Primary Care Physician: Patrizia Arreguin, JACQUI Consultations 02/01/23 16:00 Consult: Orthopedics Routine Consulting Provider: Davian Grier Reason for Consult: Fall, hip fracture EMERGENT Consult: No MD Notified: Yes Date Notified: 02/01/23 Time Notified: 15:29 Method of Notification: ED Physician Initiated Reason For Visit: FALL, L HIP FRACTURE Diagnosis Discharge Diagnosis (1) Closed hip fracture: Status: Acute Code(s): S72.009A - Fracture of unspecified part of neck of unspecified femur, initial encounter for closed fracture Qualifiers: Encounter type: initial encounter Laterality: left Qualified Code(s): S72.002A - Fracture of unspecified part of neck of left femur, initial encounter for closed fracture Plan #Displaced left intertrochanteric prox femur fx #Postoperative anemia s/p transfusion, stabilized #Parkinson's disease #htn #Mood disorder NOS #Chronic normocytic anemia The patient is an 82 y/o F w/ PMHx: CAD s/p PCI, HTN, HLD, COPD, Parkinson's disease, Chronic urgency/bladder spasms following with Urology, Gout, Fibrom yalgia, Hx usage silver water with chronically silver skin hue, Obesity who presents to the [facility] ED on 02/01/23 with history of mechanical fall with subsequent left hip pain and was found to have displaced left intertrochanteric proximal femur fracture on x-ray. Was taken to the OR on 02/02 for left femur CMN with Dr. Grire. Patient did have complication of postop anemia requiring transfusion and then hemoglobin stabilized and remained stable with resumption of aspirin and Plavix. Worked w/ PT and recommended SNF. D/c'd in stable condition to SNF. Discharge instructions as follows: -Dry sterile dressing changes as needed -Okay to remove dressings leave open to air 1 week postoperatively -Okay to shower on postoperative day #4 if no drainage. No tub soaks -Weightbearing as tolerated left lower extremity -Follow-up with Dr. Grier with orthopedics in the office in 2 weeks for staple removal and x-rays. -Please call your primary care provider's office upon discharge to schedule a hospital follow up within 1 week. -For any concerning signs or symptoms please call 911 or proceed to the nearest emergency department Medications at Discharge Home Medications aspirin 81 mg tablet,delayed release (Adult Aspirin Regimen) 81 mg PO DAILY 02/25/22 cholecalciferol (vitamin D3) 25 mcg (1,000 unit) capsule 25 mcg PO DAILY 02/25/22 trazodone 50 mg tablet 50 mg PO QHS PRN sleep 02/25/22 clopidogrel 75 mg tablet (Plavix) 75 mg PO DAILY #90 tabs 04/25/22 carvedilol 3.125 mg tablet 3.125 mg PO BID #60 tabs 07/31/22 fesoterodine 4 mg tablet,extended release 24 hr 4 mg PO DAILY 07/31/22 atorvastatin 40 mg tablet 40 mg PO DAILY #90 tabs 08/05/22 carbidopa 25 mg-levodopa 100 mg tablet 1.5 tab PO ONCE 12/29/22 carbidopa 25 mg-levodopa 100 mg tablet 2 tab PO TID 12/29/22 duloxetine 20 mg capsule,delayed release 20 mg PO BID 12/29/22 escitalopram oxalate 10 mg tablet 10 mg PO DAILY 12/29/22 losartan 25 mg tablet 25 mg PO DAILY #90 tabs 12/29/22 Hospital Course Operations - (Left hip CMN) Summary of Care Provided Minutes Spent on Discharge: 32 Hospital Course: The patient is an 82 y/o F w/ PMHx: CAD s/p PCI, HTN, HLD, COPD, Parkinson's disease, Chronic urgency/bladder spasms following with Urology, Gout, Fibromyalgia, Hx usage silver water with chronically silver skin hue, Obesity who presents to the [facility] ED on 02/01/23 with history of mechanical fall with subsequent left hip pain and was found to have displaced left intertrochanteric proximal femur fracture on x-ray. Was taken to the OR on 02/02 for left femur CMN with Dr. Grier. Patient did have complication of postop anemia requiring transfusion and then hemoglobin stabilized and remained stable with resumption of aspirin and Plavix. Worked w/ PT and recommended SNF. D/c'd in stable condit ion to SNF. Discharge instructions as follows: -Dry sterile dressing changes as needed -Okay to remove dressings leave open to air 1 week postoperatively -Okay to shower on postoperative day #4 if no drainage. No tub soaks -Weightbearing as tolerated left lower extremity -Follow-up with Dr. Grier with orthopedics in the office in 2 weeks for staple removal and x-rays. -Please call your primary care provider's office upon discharge to schedule a hospital follow up within 1 week. -For any concerning signs or symptoms please call 911 or proceed to the nearest emergency department Physical Exam Narrative General: Alert, oriented, no apparent distress HEENT: Atraumatic, normocephalic Eyes: Anicteric, normal conjunctiva, extraocular movements grossly intact Neck: Supple Respiratory: Clear to auscultation bilaterally, normal respiratory effort Cardiovascular: Regular rate and rhythm GI: Soft, nontender, nondistended Extremities: SCDs in place Musculoskeletal: Moving all extremities Neuro: No overt focal neurological deficits Skin: Chronic grayish coloring of skin Psych: Cooperative Weight / BMI Weight Weight: 76.6 kg Body Mass Index (BMI) 31.1 ABG / Lab / Microbiology Data 02/06/23 08:47 02/06/23 05:45 Laboratory: Laboratory Results - last 24 hr 02/06/23 05:45: WBC 7.0, RBC 2.47 L, Hgb 7.1 L, Hct 22.4 L, MCV 90.7, MCH 28.7, MCHC 31.7 L D, RDW Std Deviation 45.7 H, RDW Coeff of Aleena 14.2, Plt Count 227, MPV 8.9, Immature Gran % (Auto) 0.700, Neut % (Auto) 55.6, Lymph % (Auto) 30.5, [place] % (Auto) 10.2 H, Eos % (Auto) 2.6, Baso % (Auto) 0.4, Absolute Neuts (auto) 3.9, Absolute Lymphs (auto) 2.15, Nucleated RBC % 0, Sodium 140, Potassium 4.2, Chloride 108 H, Carbon Dioxide 29.0, Anion Gap 3 L, BUN 16, Creatinine 0.64, Estim Creat Clear Calc 34.90, Est GFR (MDRD) Af Amer 115, Est GFR (MDRD) Non-Af 95, BUN/Creatinine Ratio 25.2 H, Glucose 90, Calcium 7.9 L 02/06/23 08:47: Hgb 7.8 L D/C Instructions Discharge Diet: No restrictions Meaningful Use Info Meaningful Use Diagnoses (Choose all that apply): None applicable Discharge Plan Admission Admit Date/Time: 02/01/23 15:26 Primary Reason for Your Visit: Fall and left hip/leg pain Attending Provider: Darline Lundy Primary Care Provider: Patrizia Arreguin NP Consulting Providers: Jasmin Steele; Davian Grier Instructions Patient Instructions: ED Fall Prevention Additional Instructions / Restrictions: DISCHARGE INSTRUCTIONS PLEASE READ *Please take this with you to your next doctors appointment* -Dry sterile dressing changes as needed -Okay to remove dressings leave open to air 1 week postoperatively -Okay to shower on postoperative day #4 if no drainage. No tub soaks -Weightbearing as tolerated left lower extremity -Follow-up with Dr. Grier with orthopedics in the office in 2 weeks for staple removal and x-rays. -Please call your primary care provider's office upon discharge to schedule a hospital follow up within 1 week. -For any concerning signs or symptoms please call 911 or proceed to the nearest emergency department Discharge Orders/Prescriptions Prescriptions: Continued fesoterodine 4 mg tablet extended release 24 hr 4 mg PO DAILY carvedilol 3.125 mg tablet 3.125 mg PO BID Qty: 60 12RF Rx Instructions: must administer with a meal/food carbidopa-levodopa 25-100 mg tablet 1.5 tab PO ONCE carbidopa-levodopa 25-100 mg tablet 2 tab PO TID duloxetine 20 mg capsule,delayed release(DR/EC) 20 mg PO BID Rx Instructions: Start the medication at once a day for 15 days then start taking 2 x a day escitalopram oxalate 10 mg tablet 10 mg PO DAILY losartan 25 mg tablet 25 mg PO DAILY Qty: 90 3RF aspirin [Adult Aspirin Regimen] 81 mg tablet,delayed release (DR/EC) 81 mg PO DAILY trazodone 50 mg tablet 50 mg PO QHS PRN (Reason: sleep) cholecalciferol (vitamin D3) 25 mcg (1,000 unit) capsule 25 mcg PO DAILY clopidogrel [Plavix] 75 mg tablet 75 mg PO DAILY Qty: 90 3RF atorvastatin 40 mg tablet 40 mg PO DAILY Qty: 90 3RF Referrals / Follow Up: Davian Grier, [Med Staff - Active Staff] - 02/18/23 aPtrizia Arreguin NP, [facility] [employer]-C [Primary Care Provider] - Disposition Disposition (needs filled in before D/C Order can be placed): Care Home Facility Charges/Coding Visit Charges Inpatient E&M: 94735 Disch Hosp >30min
--- NOTE | 2023-02-06 12:57 | CASEMGMT ---
Social Work 7000 exemption form completed in [facility] for admission to [facility] for skilled level of care under convalescent stay. SANCHEZ Sauceda
--- NOTE | 2023-02-06 13:22 | CASEMGMT ---
Discharge Planning Discharge orders, signed med list, and transport time sent to [facility] via [facility]. [facility] will transport patient by cot at 4p. Nursing, SW, patient, and her daughter updated. Frida Santamaria, Discharge Planning Asst.
[2023-02-06 13:59] VITALS: BP 92/52; PULSE 73; RESP 16; TEMP 37; O2SAT 100
--- NOTE | 2023-02-06 16:03 | CASEMGMT ---
Discharge Planning Covid results sent to [facility] via [facility]. Frida Santamaria, Discharge Planning Asst.
[2023-02-06 16:41] LABS: Bedside Glucose 99 mg/dL (74-106)
== END 2023-02-06 16:49 | disposition skilled nursing facility (03) | DRG 481 ==
LOC: ED 15:06 → MS3 15:34
PROVIDERS: Nurse Practitioner; Student in an Organized Health Care Education/Training Program; Admitting Provider Family Medicine; Emergency Provider Emergency Medicine; PCP Nurse Practitioner; Visit Provider Internal Medicine
PROC: 0QS736Z Reposition Left Upper Femur with Intramedullary Internal Fixation Device, Percutaneous Approach (ICD-10-PCS; CPT 27245; principal; 2023-02-02 12:30)
DX: S72.142A Displaced intertrochanteric fracture of left femur, initial encounter for closed fracture (principal); D62 Acute posthemorrhagic anemia; G20.C Parkinsonism, unspecified; F39 Unspecified mood [affective] disorder; I10 Essential (primary) hypertension; E78.5 Hyperlipidemia, unspecified; M79.7 Fibromyalgia; I25.10 Atherosclerotic heart disease of native coronary artery without angina pectoris; W19.XXXA Unspecified fall, initial encounter; I25.2 Old myocardial infarction; Z79.82 Long term (current) use of aspirin; Z95.5 Presence of coronary angioplasty implant and graft; J44.89 Other specified chronic obstructive pulmonary disease; Z87.891 Personal history of nicotine dependence; Z79.02 Long term (current) use of antithrombotics/antiplatelets; R29.6 Repeated falls
CPT/HCPCS: 36415; 51702; 70450; 71045; 72170; 73080; 73502; 73552; 76000; 80048; 80053; 82306; 82962; 83880; 85018; 85025; 85027; 85610; 86850; 86900; 86901; 86920; 87811; 93005; 94668; 97110; 97162; 97166; 97530; 97535; 99252; 99285; C1776; J7030; J7040; P9016; A4216; G0463; J2405

== ENCOUNTER 2023-05-01 13:25 | Emergency (ER) | payer MEDICARE, MEDICAID, SELFPAY ==
[2023-05-01 13:26] VITALS: BP 126/50; PULSE 69; RESP 16; TEMP 36.9; O2SAT 99; BMI 30.2
--- NOTE | 2023-05-01 13:35 | ED.VIS.FALL ---
HPI HPI - Fall History of Present Illness Chief Complaint: Fall Informant: patient Occured/Mechanism Occurred: Days (5) Mechanism/Context: Yes same level fall Pain/Injury Pain Location: head Quality of Pain: Aching Worsened by: Nothing Relieved by: Nothing Associated Symptoms Associated Symptoms: Negative for Parasthesias, Weakness, Inability to ambulate, Loss of consciousness or Amnesia Narrative Narrative: Patient presents with headache and diplopia that began after a fall 5 days ago. Patient states she lost her balance due to her Parkinson's disease and fell. Patient states she hit her head but denies any loss of consciousness with the fall. Patient states that since the fall she has been having some double vision. Patient also admits to some mild neck pain. Patient states she hit the back of her head near the base of her head. Patient denies any other injuries. Patient denies any lacerations. [facility] Medical History Atherosclerotic heart disease of [place] coronary artery without angina pectoris Bladder spasms CAD (coronary artery disease) Cardiogenic shock CHI (closed head injury) Depression Edema, lower extremity Emphysema with chronic bronchitis Essential (primary) hypertension Fall Fibromyalgia Former tobacco use Gout Hyperlipidemia Hypertension Myocardial infarction Non-rheumatic mitral regurgitation Non-rheumatic tricuspid valve insufficiency Parkinsons disease Presence of stent in coronary artery (~12/22/21) Pulmonary hypertension ST elevation myocardial infarction (STEMI) of inferior wall (~12/22/21) Urgency of urination Home Medications aspirin 81 mg tablet,delayed release (Adult Aspirin Regimen) 81 mg PO DAILY 02/25/22 [History Last Taken 05/01/23] cholecalciferol (vitamin D3) 25 mcg (1,000 unit) capsule 25 mcg PO WE 02/25/22 [History Last Taken 04/29/23] trazodone 50 mg tablet 50 mg PO QHS PRN sleep 02/25/22 [History Last Taken Unknown] clopidogrel 75 mg tablet (Plavix) 75 mg PO DAILY #90 tabs 04/25/22 [Rx Last Taken 05/01/23] fesoterodine 4 mg tablet,extended release 24 hr 4 mg PO QHS 07/31/22 [History Last Taken 05/01/23] carbidopa 25 mg-levodopa 100 mg tablet 1.5 tab PO QHS 12/29/22 [History Last Taken 04/30/23] carbidopa 25 mg-levodopa 100 mg tablet 2 tab PO TID 12/29/22 [History Last Taken 05/01/23] duloxetine 20 mg capsule,delayed release 40 mg PO DAILY 12/29/22 [History Last Taken 05/01/23] losartan 25 mg tablet 25 mg PO DAILY #90 tabs 12/29/22 [Rx Last Taken 05/01/23] acetaminophen 325 mg capsule 650 mg PO Q6H PRN fever or pain 05/01/23 [History Last Taken 04/29/23] ascorbic acid (vitamin C) 500 mg tablet (C-500) 500 mg PO BID 05/01/23 [History Last Taken 04/30/23] atorvastatin 40 mg tablet 40 mg PO QHS 05/01/23 [History Last Taken 04/30/23] escitalopram oxalate 5 mg tablet 5 mg PO DAILY 05/01/23 [History Last Taken 05/01/23] ferrous sulfate 325 mg (65 mg iron) tablet (Feosol) 325 mg PO BID 05/01/23 [History Last Taken 04/30/23] mecobalamin (vitamin B12) 1,000 mcg chewable tablet 500 mcg PO DAILY 05/01/23 [History Last Taken 04/30/23] metoprolol tartrate 25 mg tablet 12.5 mg PO Q12H 05/01/23 [History Last Taken 05/01/23] pantoprazole 20 mg tablet,delayed release 20 mg PO DAILY 05/01/23 [History Last Taken 05/01/23] polyethylene glycol 3350 17 gram/dose oral powder (ClearLax) 17 g PO DAILY 05/01/23 [History Last Taken 05/01/23] psyllium husk 3.4 gram/5.4 gram oral powder (Stacie-Mucil) 1 tbsp PO DAILY 05/01/23 [History Last Taken 04/30/23] senna-docusate sodium capsule 1 cap PO BID 05/01/23 [History Last Taken 05/01/23] tramadol 50 mg tablet 50 mg PO Q8H PRN pain 05/01/23 [History Last Taken 04/30/23] Allergy/AdvReac Type Severity Reaction Status Date / Time oxycodone [From Percocet] Allergy Severe Hives Verified 05/01/23 13:26 Family History (Updated 02/01/23 @ 16:[address] Jasmin Steele MD) Father Heart disease Surgical History History of ankle surgery History of hysterectomy Presence of coronary angioplasty implant and graft S/P appendectomy Social History household members: friend(s) Smoking Status: Former smoker pack-years: 30 Tobacco: How many years used: 30 how long ago did patient quit smoking: Quit 20+ years prior. alcohol intake: current alcohol intake frequency: holidays/special occasions only substance use type: does not use caffeine: Yes Type: coffee Number of servings: 2 ROS ROS ED Constitutional Constitutional ED: Denies chills or fever(s) Eyes Eyes: Reports change in vision and diplopia; Denies blurry vision ENT ENT ED: Denies rhinorrhea or sore throat Cardiovascular Cardiovascular: Denies chest pain or palpitations Respiratory/Chest Respiratory/Chest: Denies cough or dyspnea Gastrointestinal Gastrointestinal: Denies nausea or vomiting Genitourinary Genitourinary ED: Denies dysuria or hematuria Musculoskeletal Musculoskeletal: Reports neck pain; Denies back pain Integumentary Denies abscess or rash Neurologic Neurologic: Denies headache(s) or weakness Allergic/Immunologic Allergic/Immunologic ED: Denies mouth swelling or urticaria EXAM Physical Exam Const Vital Signs: 05/01/23 13:26 05/01/23 13:31 05/01/23 14:23 Temperature 98.4 F Temperature Source Oral Pulse Rate 69 70 Respiratory Rate 16 17 Respiratory Effort Normal Non-Labored Respiratory Depth Normal Respiratory Pattern Normal Blood Pressure 126/50 H 122/51 H Blood Pressure Mean 75 74 Pulse Ox 99 98 Oxygen Delivery Method Room Air Room Air Positive well nourished and well developed General Appearance ED: well developed and NAD HEENT Reports normocephalic HEENT Narrative: There is mild tenderness over the occipital scalp. There is no laceration noted. There is no bony crepitance or step-off noted. Eyes PERRL and EOMs intact bilaterally Neck full ROM Neck Narrative: There is mild tenderness over the upper cervical spine and paraspinal muscles. There is no bony crepitance or step-off noted. There is no deformity noted. Resp normal respiratory effort and clear to auscultation bilaterally Cardio regular rate and regular rhythm GI non-tender and non-distended Palpation: soft Neuro oriented x3, CN's II-XII intact bilaterally, moves all extremities, no focal motor deficits and no sensory deficits noted Asher Coma Scale: document GCS findings Spontaneous Obeys Commands Oriented 15 Sensorium / Orientation: alert Motor Exam: strength 5/5 throughout Psych mental status grossly normal and thought process normal Skin Skin Narrative: Patient has a silver hue to her skin, mainly over her face. MDM MDM MDM Narrative Medical decision making narrative: Differential diagnosis includes intracranial bleeding, stroke, skull fracture, cervical spine fracture, coagulopathy, anemia, and electrolyte abnormality. CT scan of the brain will be obtained to assess for intracranial bleeding and skull fracture. CT scan of the cervical spine will be obtained to assess for cervical spine fracture. CBC will be obtained to assess for leukocytosis and anemia. Basic metabolic profile will be obtained to assess for electrolyte abnormality and renal function. PT was INR and PTT will be obtained to assess for coagulopathy. Lab Data Attestation: I reviewed the patient's lab results. Lab results narrative: CBC was reviewed. There is a mild anemia with a hemoglobin of 10.7 and hematocrit 34.3. This was improved from previous results. Basic metabolic profile was reviewed and was within normal limits. PT with INR and PTT were reviewed. Pro time was 16.1 and INR is 1.3. PTT was 23.0. Labs: Laboratory Results - last 24 hr 05/01/23 14:15 WBC 6.1 RBC 3.80 L Hgb 10.7 L Hct 34.3 L MCV 90.3 MCH 28.2 MCHC 31.2 L RDW Std Deviation 43.1 RDW Coeff of Aleena 13.2 Plt Count 311 MPV 8.4 Immature Gran % (Auto) 0.300 Neut % (Auto) 62.2 Lymph % (Auto) 19.9 [place] % (Auto) 11.6 H Eos % (Auto) 5.2 H Baso % (Auto) 0.8 Absolute Neuts (auto) 3.8 Absolute Lymphs (auto) 1.22 Nucleated RBC % 0 PT 16.1 H INR 1.3 APTT 23.0 L Sodium 139 Potassium 4.4 Chloride 106 Carbon Dioxide 28.0 Anion Gap 5 BUN 15 Creatinine 0.79 Estim Creat Clear Calc 51.35 Est GFR (MDRD) Af Amer 89 Est GFR (MDRD) Non-Af 74 BUN/Creatinine Ratio 18.9 Glucose 87 Calcium 8.9 Radiography Diagnostic Testing: Clinical Impression(s) from Imaging Studies Brain CT 05/01/23 13:42 IMPRESSION: No acute intracranial process. Electronically Signed: Zack Sweeney MD at 14:24 EST , Cervical Spine CT 05/01/23 13:43 IMPRESSION: 1. No evidence of acute cervical spinal fracture or spondylolisthesis. 2. Degenerative changes. Electronically Signed: Zack Sweeney MD at 14:28 EST , CT scan of the brain was obtained. There is no acute intracranial abnormality. This was interpreted by the radiologist and was also independently reviewed by myself. CT scan of the cervical spine was obtained. There is no acute fracture or spondylolisthesis noted. There are some degenerative changes noted. This was interpreted by the radiologist and was also independently reviewed by myself. Treatment and Re-Evaluation Narrative: Patient was advised of her findings. Patient was advised that this could be from a concussion. Patient was instructed to drink plenty of fluids. Patient was instructed to follow-up with her primary care physician in 5 to 7 days. Patient was instructed to return if worse in any way. Patient understood and was agreeable with the plan. All questions were answered. Discharge Plan Triage Chief Complaint: Fall Other Complaint: Head Injury ED Provider: Law Gold Dx/Rx/DC Orders Clinical Impression: Concussion, Parkinsons disease Instructions: ED Concussion Prescriptions: No Action fesoterodine 4 mg tablet extended release 24 hr 4 mg PO QHS carbidopa-levodopa 25-100 mg tablet 1.5 tab PO QHS carbidopa-levodopa 25-100 mg tablet 2 tab PO TID Patient Comments: 0800, 1200, 1600 duloxetine 20 mg capsule,delayed release(DR/EC) 40 mg PO DAILY losartan 25 mg tablet 25 mg PO DAILY Qty: 90 3RF aspirin [Adult Aspirin Regimen] 81 mg tablet,delayed release (DR/EC) 81 mg PO DAILY trazodone 50 mg tablet 50 mg PO QHS PRN (Reason: sleep) cholecalciferol (vitamin D3) 25 mcg (1,000 unit) capsule 25 mcg PO WE clopidogrel [Plavix] 75 mg tablet 75 mg PO DAILY Qty: 90 3RF tramadol 50 mg tablet 50 mg PO Q8H PRN (Reason: pain) metoprolol tartrate 25 mg tablet 12.5 mg PO Q12H senna-docusate sodium Capsule 1 cap PO BID ascorbic acid (vitamin C) [C-500] 500 mg tablet 500 mg PO BID atorvastatin 40 mg tablet 40 mg PO QHS polyethylene glycol 3350 [ClearLax] 17 gram/dose powder 17 g PO DAILY escitalopram oxalate 5 mg tablet 5 mg PO DAILY Stacie-Mucil 3.4 gram/5.4 gram powder 1 tbsp PO DAILY Rx Instructions: mix into at least 8 oz of water or juice before administering pantoprazole 20 mg tablet,delayed release (DR/EC) 20 mg PO DAILY mecobalamin (vitamin B12) 1,000 mcg tablet,chewable 500 mcg PO DAILY ferrous sulfate [Feosol] 325 mg (65 mg iron) tablet 325 mg PO BID acetaminophen 325 mg capsule 650 mg PO Q6H PRN (Reason: fever or pain) Primary Care Provider: Patrizia Arreguin NP Referrals: Patrizia Arreguin NP, [facility] [Primary Care Provider] - 5-7 Days Disposition Disposition: Home, Self Care
--- NOTE | 2023-05-01 13:42 | CT_ITS ---
INDICATION: Head injury EXAMINATION: CT BRAIN - CT Head or Brain W/O Contrast Injection TECHNIQUE: Multiple axial images were obtained of the head without intravenous contrast. A radiation dose optimization technique was used for this scan. IV Contrast dosage and agent: None. RADIATION DOSAGE (If Supplied By Facility): CTDIvol = ( 44.99 ) mGy, DLP = ( 779.24 ) mGycm COMPARISON: Prior study dated: 02/01/2023 FINDINGS: BRAIN PARENCHYMA: No intra- or extra-axial hemorrhage. No evidence of acute infarct. No intracranial mass or mass effect. There is preservation of the carl/white matter interface. Mild chronic periventricular deep white matter changes likely due to microvascular disease. Posterior fossa structures are unremarkable. CSF SPACES: Appropriate for age. No hydrocephalus. Basal cisterns are patent. CALVARIUM, SKULL BASE, PARANASAL SINUSES AND MASTOID AIR CELLS: Clear. No discrete lytic or blastic abnormalities. ORBITS: Previous bilateral cataract surgery. CT/Brain/Head without Contrast IMPRESSION: No acute intracranial process. Electronically Signed: Zack Sweeney MD at 14:24 EST ,
--- NOTE | 2023-05-01 13:43 | CT_ITS ---
INDICATION: Injury/Pain EXAMINATION: CT CERVICAL SPINE - CT Spine Cervical W/O Contrast Injection TECHNIQUE: Helically acquired images were obtained of the cervical spine. 2D reformatted images were reviewed. A radiation dose optimization technique was used for this scan. IV Contrast dosage and agent: None. RADIATION DOSAGE (If Supplied By Facility): CTDIvol = ( 11.79 ) mGy, DLP = ( 198.02 ) mGycm COMPARISON: No relevant prior comparison study available FINDINGS: VERTEBRAE: No fracture or traumatic subluxation. No discrete lytic or blastic abnormality. Straightening of the cervical spine. Alignment of the vertebral bodies unremarkable. Normal craniocervical junction and cervicothoracic junction. DISCS and SPINAL CANAL: Degenerative changes of the apophyseal joints at multiple levels. Narrowing of C5-C6 disc space. Narrowing of the left neural foramina at multiple levels. No critical stenosis. NECK SOFT TISSUES: No prevertebral soft tissue swelling. Sclerotic calcifications of the carotid arteries. LUNG APICES: Clear. CT/Spine Cervical without Contras IMPRESSION: 1. No evidence of acute cervical spinal fracture or spondylolisthesis. 2. Degenerative changes. Electronically Signed: Zack Sweeney MD at 14:28 EST ,
--- OUTSIDE RECORDS SUMMARY | 2023-05-01 14:21 | XMS RPT_ITS | CCD ---
Author Name Unknown Address [address] [place] [address] Organization [facility] Care Team Providers Care Brand Inspector Name Role Phone Unavailable Primary Care Provider Unavailkuldeep Arreguin APRN.Patrizia ZAPIEN Primary Care Provide r VIBHA FLYNN Attending Unavailable LINDEN FLYNN Referring Unavailable LINDEN FLYNN Attending Unavailable SELF Referring Unavailable Allergies Allergy Classification Reported Allergen(s) Allergy Type Date of Onset Reaction(s) Facility (3 sources) Acetaminophen / oxyCODONE; Translations: [OXYCODONE-ACETAMI NOPHEN] Drug Allergy 3 Rash, Itching [facility] Medications Current Medications Medication Drug Class(es) Dates Sig (Normalized) Sig (Original) escitalopram 10 mg oral tablet (2 sources) Serotonin Reuptake Inhibitor Start: 10-09-2022 End: 10-09-2023 take 1 tablet by mouth once daily escitalopram oxalate (LEXAPRO) 10 mg tablet Take 1 tablet by mouth once daily. 30 tablet 11 10/09/2022 10/09/2023 Active Completed/Discontinued Medications Medication Drug Class(es) Dates Sig (Normalized) Sig (Original) aspirin 81 mg delayed release oral tablet (2 sources) Platelet Aggregation Inhibitor, Nonsteroidal Anti-inflammatory Drug take 1 tablet by mouth once daily aspirin, enteric coated (ASPIRIN, ENTERIC COATED) 81 mg EC tablet Take 81 mg by mouth once daily. 0 Active Problems Active Problems Problem Classification Problem Date Documented Da te Episodic/Chronic Acute myocardial infarction (2 sources) Myocardial infarction; Translations: [Acute myocardial infarction, unspecified] Onset: 10-09-2022 10-09-2022 Chronic Coronary atherosclerosis and other heart disease (2 sources) Coronary arteriosclerosis; Translations: [Atherosclerotic heart disease of eagle coronary artery without angina pectoris] Onset: 07-31-2022 10-09-2022 Chronic Disorders of lipid metabolism (2 sources) Hyperlipidemia; Translations: [Hyperlipidemia, unspecified] Onset: 07-31-2022 10-09-2022 Chronic Essential hypertension (2 sources) Essential hypertension; Translations: [Essential (primary) hypertension] Onset: 07-31-2022 10-09-2022 Chronic Gout and other crystal arthropathies (2 sources) Gout; Translations: [Gout, unspecified] Onset: 03-31-2022 10-09-2022 Chronic Heart valve disorders (2 sources) Tricuspid incompetence, non-rheumatic ; Translations: [Nonrheumatic tricuspid (valve) insufficiency] Onset: 07-31-2022 10-09-2022 Chronic Mood disorders (1 source) Depressive disorder; Translations: [Depression, unspecified depression type] Chronic Other circulatory disease (1 source) Orthostatic hypotension; Translations: [Orthostatic hypotension] 01-20-2023 Episodic Other diseases of bladder and urethra (2 sources) Spasm of bladder; Translations: [Other specified disorders of bladder] Onset: 10-09-2022 10-09-2022 Chronic Parkinson`s disease (4 sources) Parkinson's disease; Translations: [Parkinson's disease] Onset: 07-31-2022 Chronic Poisoning by nonmedicinal substances (2 sources) [place]gy[place] of skin; Translations: [Toxic effect of other metals, accidental (unintentional), initial encounter] Onset: 10-09-2022 10-09-2022 Chronic Poisoning by nonmedicinal substances (1 source) [place] of skin; Translations: [Toxic effect of other metals, accidental (unintentional), sequela] Episodic Residual codes; unclassified (1 source) Hallucinations; Translations: [Hallucinations, unspecified] 01-20-2023 Episodic Residual codes; unclassified (1 source) Insomnia; Translations: [Insomnia, unspecified] 01-20-2023 Episodic Past or Other Problems Problem Classification Problem Date Documented Da te Episodic/Chronic Genitourinary symptoms and ill-defined conditions (2 sources) Urgent desire to urinate; Translations: [Urgency of urination] Onset: 10-09-2022 10-09-2022 Episodic Other connective tissue disease (2 sources) Fibromyalgia; Translations: [Fibromyalgia] Onset: 10-09-2022 10-09-2022 Episodic Other skin disorders (2 sources) Sebaceous cyst of skin; Translations: [Sebaceous cyst] Onset: 10-09-2022 10-09-2022 Episodic Results Test Name Value Interpretation Reference Range Facil ity Vital Signs Date Time Vital Sign Value Performing Clinician Juanis wilson 01-20-2023 14:48-0400 Body height 157.5 cm Vibha lFynn APRN.CN P Work Phone: [facility] 01-20-2023 14:48-0400 Body weight 70.76 kg Vibha Flynn APRN.CN P Work Phone: [facility] 01-20-2023 14:48-0400 SaO2% (BldA) [Mass fraction] 100 % Vibha Flynn APRN.DESIGN PAINTER Work Phone: [facility] 10-09-2022 12:48-0400 Body height 157.5 cm Linden Flynn MD Work Phone: [facility] 10-09-2022 12:48-0400 Body weight 68.63 kg Linden Flynn MD Work Phone: [facility] 10-09-2022 12:48-0400 SaO2% (BldA) [Mass fraction] 99 % Linden Flynn MD Work Phone: [facility] Encounters Encounter Date Encounter Type Care Provider Facility Start: 01-20-2023 End: 01-20-2023 ambulatory VIBHA FLYNN Facility:[facility] Start: 01-20-2023 End: 01-20-2023 Patient encounter procedure Vibha Flynn APRN.DESIGN PAINTER Work Phone: Neurology Plan of Treatment Date Care Activity Detail Author Start: 12-12-2022 Influenza vaccination C [facility] Start: 04-13-2022 ADVANCE DIRECTIVE DISCUSSION ADVANCE DIRECTIVE DISCUSSION [facility] Start: 04-13-2022 DEPRESSION ASSESSMENT DEPRESSION ASS ESSMENT [facility] Start: 2006 BONE DENSITY BONE DENSITY [facility] Start: 2006 Bone Density Screening Bone Density Screening [facility] Start: 2006 Pneumococcal Vaccine : 65+ (1 - PCV) Pneumococcal Vaccine: 65+ (1 - PCV) [facility] Start: 2006 PNEUMOCOCCAL: 65+ (1 - PCV) PNEUMOCOCCAL: 65+ (1 - PCV) [facility] Start: 1991 SHINGRIX VACCINE (1 of 2) SHINGRIX V ACCINE (1 of 2) [facility] Start: 1986 [facility] Start: 1986 Diabetes Screening Diabetes Screenin g [facility] Start: 1960 Urine microalbumin profile [facility] Start: 1959 Hepatitis B surface antibody level LDL CHOLESTEROL [facility] Start: 1941 COVID-19 VACCINE (#1) COVID-19 VACCI NE (#1) [facility] Payers Date Payer Category Payer Medicare [facility] AARP MEDICAR E [facility] AARP MEDICARE HMO [id number] 2022-Present [phone] [address] [address] [place] [address] HMO [id number] 2022 Medicare [id number] Social History Date Type Detail Facility Start: 10-09-2022 [facility] History of tobacco use Current smoker [facility] History of tobacco use Cigarette Smoker C [facility] Start: 10-09-2022 Tobacco use and exposure Smoke less tobacco non-user [facility] Start: 10-09-2022 End: 01-20-2023 Alcohol intake Lifetime non-drinker (finding) [facility] Start: 1940 Sex Assigned At Not on file C [facility] Start: 10-09-2022 End: 01-20-2023 History of Social function [facility] Start: 10-09-2022 End: 01-20-2023 Tobacco use panel [facility] National Score (1-10 0), lower number is lower risk 51 [facility] Progress note 01-20-2023 Note Date & Type Note Facility 01-20-2023 Note HNO ID: [id number] Author: Vibha Flynn APRN.RUPALI Service: ? Author Type: Nurse Practitioner Type: Progress Notes Filed: 01/21/2023 9:37 PM Note Text: [facility] - FOLLOW UP EVALUATION Patrizia Arreguin APRN.CNP [address] [facility] [address] [place] [id number] Dear Patrizia Arreguin APRN.CNP: I had the pleasure of seeing Ms. Hunter for follow-up today. As you know she is a 82 year old right-handed female with a history of Parkinson's disease since 2019. She is seen with her . Subjective Previous Plan-10/09/2022 Visit: Parkinson's disease - Increase Sinemet to 2 tablets for first 3 doses Depression - Try Lexapro 10 mg daily. Deconditioning - PT and OT referral Interval History: She has been exercising and going to physical therapy at [facility] and this is going well so she feels she is doing good. They are thinking about moving back to [place] as other than the above, they are very inactive here since they do not drive and do not live somewhere they can go for walks. Movement Disorders Medications Schedule - as of the start of the visit: Medications 8AM 12PM 4PM 8PM Sinemet 25/100 2 2 2 1.5 Lexapro 10 1 Duloxetine 20mg 2 Parkinson's Motor Complications Medication benefit onset: unclear Medication duration: unclear Painful off-state dystonia: yes (Comment: feet and hands that started after her heart attack) Dyskinesia: no Prior Anti-Parkinson Therapies Carbidopa/Levodopa Questionnaires: In addition, the following areas that may be affected by abnormal involuntary movements were evaluated: Daily activities Difficulties with eating: Yes (slight) Difficulties in dressing: Yes (mild) Difficulties with hygiene activities: Yes (mild) Difficulties with handwriting: Yes (slight) Difficulties with doing hobbies and other activities: Yes (moderate) Difficulties turning in bed: Yes (slight) Difficulties getting out of bed, car or chair: Yes (slight) Tremors/Gait/Balance Shaking or tremors: Yes (slight) Walking and balance problems: Yes (slight) Number of falls in the Last Month: 0 Gait freezing: Yes (slight) Autonomic/Pain Lightheadeness on standing: Yes (moderate) If she gets up quickly Urinary problems: 0 (none) Constipation problems: 0 (none) Pain and other sensations: Yes (moderate) back pain Speech/Swallowing Speech problems: Yes (slight) Drooling: No Chewing and swallowing problems: 0 (none) Sleep/Fatigue Sleep problems: Yes (moderate) She said her brain is working all the time so she cannot get to sleep. She stopped the med she was given for sleep as it did not help, but often she only sleeps 30 minutes to 4 hours. Daytime sleepiness: She falls asleep in front of the TV. Fatigue: Yes (moderate) Mood/Behavior Depression: Taking Cymbalta and Lexapro and these help Anxiety: Taking Cymbalta and Lexapro and these help Finally, the following table shows the patient's overall global physical and mental health using the PROMIS scale: *PROMIS-10 scoring scale: mean = 50, over 50 is above average, under 50 is below average In addition, the following non-motor symptoms and palliative concerns were evaluated: Sleep/Fatigue: REM sleep behavior disorder: Very seldom Restless Legs Syndrome: Yes When she sits too long Leg swelling: Yes Impaired sense of smell: Yes Cognition: Cognitive impairment: no MoCA Cognitive assessment: Hallucinations and delusions: yes She sometimes sees her next to her when he is not. They are not scary but she worries about having them. These started before she moved to [place] and after she had her heart attack while in the hospital. Apathy: no She has motivation but there is not much to do where she is living and she and her do not drive. Impulse control disorder: No Palliative Concerns: Caregiver burden: Spiritual concerns: No Advanced directives on file: No I offered a SW consult but she wants to wait until she moves back to [place]. Palliative services: Therapy and Exercise: Last PT Date: January 2023 Last OT Date: ST Date: Exercises Regularly: Yes ALLERGIES Allergen Reactions Percocet [Oxycodone* Rash, Itching Current Outpatient Medications Medication Sig aspirin, enteric coated (ASPIRIN, ENTERIC COATED) 81 mg EC tablet Take 81 mg by mouth once daily. atorvastatin (LIPITOR) 40 mg tablet Take 1 tablet by mouth every afternoon. carbidopa-levodopa (SINEMET) 25-100 mg per tablet Take 2 tablet daily at 8AM, 2 tablet daily at 12PM, 2 tablet daily at 4PM, and 1.5 tablet daily at 8PM. carvedilol (COREG) 3.125 mg tablet Take 3.125 mg by mouth twice daily with meals. cholecalciferol, vitamin D3, (VITAMIN D3 ORAL) Take by mouth once daily. clopidogrel (PLAVIX) 75 mg tablet Take 75 mg by mouth once daily. DULoxetine (CYMBALTA) 20 mg capsule escitalopram oxalate (LEXAPRO) 10 mg tablet Take 1 tablet by mouth once daily. fesoterodine (T (more content not included)... [facility] Instructions 01-20-2023 Patient Instructions Note Date & Type Note Facility 01-20-2023 Instructions Vibha Flynn APRN.DESIGN PAINTER - 01/20/2023 3:48 PM EDT It was a pleasure to see you today. We addressed the following diagnoses: No diagnosis found. My recommendations are as follows: 01/20/2023 Visit: Parkinson's disease: Please set a timer to remind you to take your Sinemet Reduce your 12pm dose to 1.5 tablets One week later, if you are not having any problems, reduce the 4pm dose to 1.5 tablets so that you are taking 2 at 8am and 1.5 at 12pm, 4pm, and 8pm If you have any problems with this, please let me know. Orthostatic hypotension (drops in blood pressure): Increase your water intake and change positions slowly. After you increase your water intake for 5 days, Please measure your blood pressure sitting and standing for one week at approximately the same time every day If it continues to drop (top number 20 points or more or bottom number 10 points or more) please discuss with your record changer tester. Date/Time BP Sitting Heart Rate Sitting BP Standing Heart Rate Standing Difficulty sleeping: Once you restart the Duloxetine, this may help since it is your thinking keeping you awake at night and this medication helps anxiety. If it does not, you can try low dose melatonin to see if it helps (you can start with 3mg) Hallucinations: I am hoping that the reduction in Sinemet helps these, but if it does not and they are bothering you, please let me know. Movement Disorders Medication Schedule: Medications 8AM 12PM 4PM 8PM Sinemet 25/100 2 1.5 1.5 1.5 Lexapro 10 1 Duloxetine 20mg 2 Return in about 3 months (around 04/22/2023). If there are any concerns before your next visit, please call or you can send a message through [facility]. You can also now schedule and select appointments through [employer]. Vibha Flynn APRN.RUPALI documented in this encounter [facility] History of Present illness Narrative 01-20-2023 Vibha Flynn APRN.CNP - 01/20/2023 3:00 PM EDT Note Date & Type Note Facility 01-20-2023 History of Presen t illness Narrative [facility] - FOLLOW UP EVALUATION Patrizia Arreguin APRN.CNP [address] [facility] [address] [facility] [id number] Dear Patrizia Arreguin APRN.CNP: I had the pleasure of seeing Ms. Hunter for follow-up today. As you know she is a 82 year old right-handed female with a history of Parkinson's disease since 2019. She is seen with her . Subjective Previous Plan-10/09/2022 Visit: Parkinson's disease - Increase Sinemet to 2 tablets for first 3 doses Depression - Try Lexapro 10 mg daily. Deconditioning - PT and OT referral Interval History: She has been exercising and going to physical therapy at [facility] and this is going well so she feels she is doing good. They are thinking about moving back to [place] as other than the above, they are very inactive here since they do not drive and do not live somewhere they can go for walks. Movement Disorders Medications Schedule - as of the start of the visit: Medications 8AM 12PM 4PM 8PM Sinemet 25/100 2 2 2 1.5 Lexapro 10 1 Duloxetine 20mg 2 Parkinson's Motor Complications Medication benefit onset: unclear Medication duration: unclear Painful off-state dystonia: yes (Comment: feet and hands that started after her heart attack) Dyskinesia: no Prior Anti-Parkinson Therapies Carbidopa/Levodopa Questionnaires: In addition, the following areas that may be affected by abnormal involuntary movements were evaluated: Daily activities Difficulties with eating: Yes (slight) Difficulties in dressing: Yes (mild) Difficulties with hygiene activities: Yes (mild) Difficulties with handwriting: Yes (slight) Difficulties with doing hobbies and other activities: Yes (moderate) Difficulties turning in bed: Yes (slight) Difficulties getting out of bed, car or chair: Yes (slight) Tremors/Gait/Balance Shaking or tremors: Yes (slight) Walking and balance problems: Yes (slight) Number of falls in the Last Month: 0 Gait freezing: Yes (slight) Autonomic/Pain Lightheadeness on standing: Yes (moderate) If she gets up quickly Urinary problems: 0 (none) Constipation problems: 0 (none) Pain and other sensations: Yes (moderate) back pain Speech/Swallowing Speech problems: Yes (slight) Drooling: No Chewing and swallowing problems: 0 (none) Sleep/Fatigue Sleep problems: Yes (moderate) She said her brain is working all the time so she cannot get to sleep. She stopped the med she was given for sleep as it did not help, but often she only sleeps 30 minutes to 4 hours. Daytime sleepiness: She falls asleep in front of the TV. Fatigue: Yes (moderate) Mood/Behavior Depression: Taking Cymbalta and Lexapro and these help Anxiety: Taking Cymbalta and Lexapro and these help Finally, the following table shows the patient's overall global physical and mental health using the PROMIS scale: *PROMIS-10 scoring scale: mean = 50, over 50 is above average, under 50 is below average In addition, the following non-motor symptoms and palliative concerns were evaluated: Sleep/Fatigue: REM sleep behavior disorder: Very seldom Restless Legs Syndrome: Yes When she sits too long Leg swelling: Yes Impaired sense of smell: Yes Cognition: Cognitive impairment: no MoCA Cognitive assessment: Hallucinations and delusions: yes She sometimes sees her next to her when he is not. They are not scary but she worries about having them. These started before she moved to [place] and after she had her heart attack while in the hospital. Apathy: no She has motivation but there is not much to do where she is living and she and her do not drive. Impulse control disorder: No Palliative Concerns: Caregiver burden: Spiritual concerns: No Advanced directives on file: No I offered a SW consult but she wants to wait until she moves back to [place]. Palliative services: Therapy and Exercise: Last PT Date: January 2023 Last OT Date: ST Date: Exercises Regularly: Yes ALLERGIES Allergen Reactions Percocet [Oxycodone* Rash, Itching Current Outpatient Medications Medication Sig aspirin, enteric coated (ASPIRIN, ENTERIC COATED) 81 mg EC tablet Take 81 mg by mouth once daily. atorvastatin (LIPITOR) 40 mg tablet Take 1 tablet by mouth every afternoon. carbidopa-levodopa (SINEMET) 25-100 mg per tablet Take 2 tablet daily at 8AM, 2 tablet daily at 12PM, 2 tablet daily at 4PM, and 1.5 tablet daily at 8PM. carvedilol (COREG) 3.125 mg tablet Take 3.125 mg by mouth twice daily with meals. cholecalciferol, vitamin D3, (VITAMIN D3 ORAL) Take by mouth once daily. clopidogrel (PLAVIX) 75 mg tablet Take 75 mg by mouth once daily. DULoxetine (CYMBALTA) 20 mg capsule escitalopram oxalate (LEXAPRO) 10 mg tablet Take 1 tablet by mouth once daily. fesoterodine (TOVIAZ) 4 mg Tb24 extended release tablet Take 4 mg by mouth once daily. losartan (COZAAR) 25 mg tablet Take 1 tablet by mouth every afternoon. No current facility-administered medications for this visit. Objective Vital Signs: Ht 157.5 cm (5' 2 ) Wt 70.8 kg (156 lb) LMP (LMP Unknown) SpO2 100% BMI 28.53 kg/m Orthostatic Vitals: Sitting: BP 150/78 Pulse 71 Standing: BP 121/78 Pulse 82 No LMP recorded (lmp unknown). Patient has had a hysterectomy. Body mass index is 28.53 kg/m . Movement Disorders Scales Performed: MDS-UPDRS Motor subscale condition of exam Medication Off/On/Naiive ON Time of UPDRS 1534 Time of Last Medication 0800 Last Medication Taken Sinemet 25/100, 1.5 tab DBS Right N/A DBS Left N/A MDS-UPDRS Motor subscale scores Speech 2-Mild. Loss of modulation, diction, or volume, with a few words unclear, but the overall sentences easy to follow. Facial Expression 2-Mild. In addition to decreased eye-blink frequency, Masked facies present in the lower face as well, namely fewer movements around the mouth, such as less spontaneous smiling, but lips not parted. Finger Taps Right 3-Moderate. a) more than 5 interruptions during tapping or at least one longer arrest (freeze) in ongoing movement, b) moderate slowing, c) the amplitude decrements starting after the 1st tap. Finger Taps Left 2-Mild. a) 3 to 5 interruptions during tapping, b) mild slowing, c) the amplitude decrements midway in the 10-tap sequence. Hand Movements Right 3-Moderate. a) more than 5 interruptions during the movement or at least one longer arrest (freeze) in ongoing movement, b) moderate slowing, c) the amplitude decrements starting after the 1st [id number] sequence. Hand Movements Left 2-Mild. a) 3 to 5 interruptions during the movements, b) mild slowing, c) the amplitude decrements midway in the task. Arm Movements Right 2-Mild. a) 3 to 5 interruptions during the movements, b) mild slowing, c) the amplitude decrements midway in the sequence. Arm Movements Left 1-Slight. a) the regular rhythm is broken with one or two interruptions or hesitations of the movement, b) slight slowing, c) the amplitude decrements near the end of the sequence. Toe Taps Right 3-Moderate. a) more than 5 interruptions during the tapping movements or at least one longer arrest (freeze) in ongoing movement, b) moderate slowing, c) the amplitude decrements starting after the first tap. Toe Taps Left 4-Severe. Cannot or can only barely perform the task because of slowing, interruptions or decrements. Leg Agility Right 2-Mild. a) 3 to 5 interruptions during the movements, b) mild slowness, c) the amplitude decrements midway in the task. Leg Agility Left 3-Moderate. a) more than 5 interruptions during the movement or at least one longer arrest (freeze) in ongoing movement, b) moderate slowing in speed, c) amplitude decrements after the first tap. Arise From Chair 2-Mild. Pushes self up from arms of chair without difficulty. Gait 2-Mild. Independent walking but with substantial gait impairment. Gait Freezing 0-Normal. No freezing. Posture Stability Posture 2-Mild. Definite flexion, scoliosis or leaning to one side, but patient can correct posture to normal posture when asked to do so. Body Bradykinesia 3-Moderate. Moderate global slowness and poverty of spontaneous movements. Postural Tremor Hand Right 0-Normal. No tremor. Postural Tremor Hand Left 0-Normal. No tremor. Kinetic Tremor Right 0-Normal. No tremor. Kinetic Tremor Left 0-Normal. No tremor. Rest Tremor Amplitude Right Upper Extremity 0-Normal. No tremor. Rest Tremor Amplitude Left Upper Extremity 1-Slight. < 1 cm in maximal amplitude. Rest Tremor Amplitude Right Lower Extremity 0-Normal. No tremor. Rest Tremor Amplitude Left Lower Extremity 0-Normal. No tremor. Rest Tremor Amplitude Lip/Jaw 0-Normal. No tremor. Rest Tremor Constancy 0-Normal. No tremor. Assessment and Plan: Assessment Mrs. Hunter is a right-handed 82 year old year old female with Parkinson's disease since 2019. She has been experiencing hallucinations since she moved to [place], but she was embarrassed so she said she did not tell Dr. Flynn and her was not even aware but this came out during today's visit. These are very bothersome to her but she does not want to start another medication and so we have decided to reduce her Sinemet. If she has problems from doing so, she will let me know. She was also orthostatic today as she was at her last visit. I have asked her to take her blood pressure sitting and standing at home for the next week to see if this occurs frequently and to have information when discussing with her record changer tester. She also believes she has only been taking one of the two blood pressure medications prescribed (we called her record changer tester office and verified that she is supposed to be taking both that were in Epic) She is going to follow-up with them on this once she has the information from taking her blood pressures. The following are the current problems noted and addressed during this visit: Parkinson's disease without dyskinesia or fluctuating manifestations (primary encounter diagnosis) Hallucinations Orthostatic hypotension Insomnia, unspecified type Plan 01/20/2023 Visit: Parkinson's disease: Please set a timer to remind you to take your Sinemet Reduce your 12pm dose to 1.5 tablets One week later, if you are not having any problems, reduce the 4pm dose to 1.5 tablets so that you are taking 2 at 8am and 1.5 at 12pm, 4pm, and 8pm If you have any problems with this, please let me know. Orthostatic hypotension (drops in blood pressure): Increase your water intake and change positions slowly. After you increase your water intake for 5 days, Please measure your blood pressure sitting and standing for one week at approximately the same time every day If it continues to drop (top number 20 points or more or bottom number 10 points or more) please discuss with your record changer tester. Date/Time BP Sitting Heart Rate Sitting BP Standing Heart Rate Standing Difficulty sleeping: Once you restart the Duloxetine, this may help since it is your thinking keeping you awake at night and this medication helps anxiety. If it does not, you can try low dose melatonin to see if it helps (you can start with 3mg) Hallucinations: I am hoping that the reduction in Sinemet helps these, but if it does not and they are bothering you, please let me know. Updated Movement Disorders Medication Schedule: Medications 8AM 12PM 4PM 8PM Sinemet 25/100 2 1.5 1.5 1.5 Lexapro 10 1 Duloxetine 20mg 2 Level of service : 40632 (40-54 min). Time spent 50 min on the day of service, which included preparing to see the patient, [id number] patient care, completing clinical documentation, obtaining and/or reviewing separately obtained history, performing a medically appropriate examination, counseling and educating the patient/family/caregiver, and ordering medications, tests, or procedures. Vibha Flynn APRN.DESIGN PAINTER documented in this encounter [facility] Progress note 10-09-2022 Note Date & Type Note Facility 10-09-2022 Note HNO ID: [id number] Author: Linden Flynn MD Service: ? Author Type: Physician Type: Progress Notes Filed: 10/09/2022 1:29 PM Note Text: [facility] - NEW PATIENT EVALUATION I had the pleasure of evaluating Ms. Hunter in our clinic today. She is a 82 year old right-handed female who presents for evaluation of Parkinson's disease since 2019. She is seen with her . 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 She noticed she had trouble hitting notes and being kalen. They she notived shaking on the left side. She was started on Sinemet 1.5 years ago and this has helped the tremor signficantly. She still cant use her hands like she used to like she used to. She moved here from [place]. She is blue from taking silver water many years ago. Movement Disorders Medications Schedule - as of the start of the visit: Medications 8AM 12PM 4PM 8PM Sinemet 25/100 1.5 1.5 1.5 1.5 Parkinson's Motor Complications Medication benefit onset: 20 minutes Medication duration: 4 hours Prior Anti-Parkinson Therapies Carbidopa/Levodopa Questionnaires In addition, the following areas that may be affected by abnormal involuntary movements were evaluated: Daily activities Difficulties with eating: Yes (mild) Difficulties in dressing: Yes (mild) Difficulties with hygiene activities: Yes (mild) Difficulties with handwriting: Yes (mild) Difficulties with doing hobbies and other activities: Yes (moderate) Difficulties turning in bed: Yes (mild) Difficulties getting out of bed, car or chair: Yes (mild) Tremors/Gait/Balance Shaking or tremors: Yes (mild) Walking and balance problems: Yes (mild) Number of falls in the Last Month: 1 Gait freezing: Yes (mild) Autonomic/Pain Lightheadeness on standing: Yes (mild) Urinary problems: Yes (mild) Constipation problems: Yes (mild) Pain and other sensations: Yes (mild) Speech/Swallowing Speech problems: Yes (slight) Drooling: Yes (mild) Chewing and swallowing problems: Yes (slight) Sleep/Fatigue Sleep problems: Yes (mild) Daytime sleepiness: Yes (mild) Fatigue: Yes (mild) In addition, the following Parkinson Lifestyle-associated features were evaluated: Conditions Prior to Dx: Depression: Yes Anxiety: No Melanoma: No Constipation: No Yelling: No Head Trauma: No Habits/exposures Prior to Dx Smoking: Yes (but quit) Caffeinated coffee (1-cup+): Yes (but quit) Caffeinated soda/tea (2 cups+): Yes (but quit) Alcohol (1 bottle/shot/glass+): No Exercise (3x/wk+): Yes (but quit) Ibuprofen use (1x/wk+): Yes (and still do) Pesticides: No Welding: No ALLERGIES Allergen Reactions Percocet [Oxycodone* Rash, Itching Current Outpatient Medications Medication Sig carbidopa-levodopa (SINEMET 25-100) 25-100 mg per tablet Take 1 tablet by mouth four times daily. Take 4 tablets daily. Take 1.5 tablets at 8a, 1.5 tablets at 12p, 1.5 tablets at 4p and 1.5 tablets at 8p. aspirin, enteric coated (ASPIRIN, ENTERIC COATED) 81 mg EC tablet Take 81 mg by mouth once daily. cholecalciferol, vitamin D3, (VITAMIN D3 ORAL) Take by mouth once daily. carvedilol (COREG) 3.125 mg tablet Take 3.125 mg by mouth twice daily with meals. clopidogrel (PLAVIX) 75 mg tablet Take 75 mg by mouth once daily. fesoterodine (TOVIAZ) 4 mg Tb24 extended release tablet Take 4 mg by mouth once daily. escitalopram oxalate (LEXAPRO) 10 mg tablet Take 1 tablet by mouth once daily. No current facility-administered medications for this visit. 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 has no past surgical history on file. Social History Tobacco Use Smoking status: Former Types: Cigarettes Smokeless tobacco: Never Substance Use Topics Alcohol use: Never Drug use: Never Family History: family history is not on file. Objective Vital Signs: Ht 157.5 cm (5' 2 ) Wt 68.6 kg (151 lb 4.8 oz) LMP (LMP Unknown) SpO2 99% BMI 27.67 kg/m? Orthostatic Vitals: Sitting: BP 112/66 Pulse 55 Standing: BP 91/60 Pulse 68 No LMP recorded (lmp unknown). Patient has had a hysterectomy. Body mass index is 27.67 kg/m?. General Physical Examination: General Exam General Neurological Examination: Neurological Exam Mental Status Awake, alert and oriented to person, place and time. Recent and remote memory are intact. Speech is normal. Language is fluent with no aphasia. Cranial Nerves CN II-XII grossly intact, except as otherwise noted. Motor Normal muscle bulk throughout. Normal muscle tone. The following abnormal movement (more content not included)... [facility] Note 10-09-2022 Addendum Note - Linden Flynn MD - 10/09/2022 1:32 PM EDT Note Date & Type Note Facility 10-09-2022 Miscellaneous Notes Addended by: LINDEN FLYNN on: 10/09/2022 01:32 PM Modules accepted: Orders documented in this encounter [facility] Instructions 10-09-2022 Patient Instructions Note Date & Type Note Facility 10-09-2022 Instructions Linden Flynn MD - 10/09/2022 1:28 PM EDT It was a pleasure to see you today. We addressed the following diagnoses: Argyria of skin, accidental or unintentional, sequela Parkinson's disease (hcc) (primary encounter diagnosis) Depression, unspecified depression type My recommendations are as follows: 10/09/2022 Visit: Parkinson's disease - Increase Sinemet to 2 tablets for first 3 doses Depression - Try Lexapro 10 mg daily. Deconditioning - PT and OT referral Movement Disorders Medication Schedule: Medications 8AM 12PM 4PM 8PM Sinemet 25/100 2 2 2 1.5 Lexapro 10 1 Return at or around: 01/09/23 If there are any concerns before your next visit, please call or you can send a message through [employer]. You can also now schedule and select appointments through [employer]. Linden Flynn MD documented in this encounter [facility] History of Present illness Narrative 10-09-2022 Linden Flynn MD - 10/09/2022 1:00 PM EDT Note Date & Type Note Facility 10-09-2022 History of Presen t illness Narrative [facility] - NEW PATIENT EVALUATION I had the pleasure of evaluating Ms. Hunter in our clinic today. She is a 82 year old right-handed female who presents for evaluation of Parkinson's disease since 2019. She is seen with her . 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 She noticed she had trouble hitting notes and being kalen. They she notived shaking on the left side. She was started on Sinemet 1.5 years ago and this has helped the tremor signficantly. She still cant use her hands like she used to like she used to. She moved here from [place]. She is blue from taking silver water many years ago. Movement Disorders Medications Schedule - as of the start of the visit: Medications 8AM 12PM 4PM 8PM Sinemet 25/100 1.5 1.5 1.5 1.5 Parkinson's Motor Complications Medication benefit onset: 20 minutes Medication duration: 4 hours Prior Anti-Parkinson Therapies Carbidopa/Levodopa Questionnaires In addition, the following areas that may be affected by abnormal involuntary movements were evaluated: Daily activities Difficulties with eating: Yes (mild) Difficulties in dressing: Yes (mild) Difficulties with hygiene activities: Yes (mild) Difficulties with handwriting: Yes (mild) Difficulties with doing hobbies and other activities: Yes (moderate) Difficulties turning in bed: Yes (mild) Difficulties getting out of bed, car or chair: Yes (mild) Tremors/Gait/Balance Shaking or tremors: Yes (mild) Walking and balance problems: Yes (mild) Number of falls in the Last Month: 1 Gait freezing: Yes (mild) Autonomic/Pain Lightheadeness on standing: Yes (mild) Urinary problems: Yes (mild) Constipation problems: Yes (mild) Pain and other sensations: Yes (mild) Speech/Swallowing Speech problems: Yes (slight) Drooling: Yes (mild) Chewing and swallowing problems: Yes (slight) Sleep/Fatigue Sleep problems: Yes (mild) Daytime sleepiness: Yes (mild) Fatigue: Yes (mild) In addition, the following Parkinson Lifestyle-associated features were evaluated: Conditions Prior to Dx: Depression: Yes Anxiety: No Melanoma: No Constipation: No Yelling: No Head Trauma: No Habits/exposures Prior to Dx Smoking: Yes (but quit) Caffeinated coffee (1-cup+): Yes (but quit) Caffeinated soda/tea (2 cups+): Yes (but quit) Alcohol (1 bottle/shot/glass+): No Exercise (3x/wk+): Yes (but quit) Ibuprofen use (1x/wk+): Yes (and still do) Pesticides: No Welding: No ALLERGIES Allergen Reactions Percocet [Oxycodone* Rash, Itching Current Outpatient Medications Medication Sig carbidopa-levodopa (SINEMET 25-100) 25-100 mg per tablet Take 1 tablet by mouth four times daily. Take 4 tablets daily. Take 1.5 tablets at 8a, 1.5 tablets at 12p, 1.5 tablets at 4p and 1.5 tablets at 8p. aspirin, enteric coated (ASPIRIN, ENTERIC COATED) 81 mg EC tablet Take 81 mg by mouth once daily. cholecalciferol, vitamin D3, (VITAMIN D3 ORAL) Take by mouth once daily. carvedilol (COREG) 3.125 mg tablet Take 3.125 mg by mouth twice daily with meals. clopidogrel (PLAVIX) 75 mg tablet Take 75 mg by mouth once daily. fesoterodine (TOVIAZ) 4 mg Tb24 extended release tablet Take 4 mg by mouth once daily. escitalopram oxalate (LEXAPRO) 10 mg tablet Take 1 tablet by mouth once daily. No current facility-administered medications for this visit. 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 has no past surgical history on file. Social History Tobacco Use Smoking status: Former Types: Cigarettes Smokeless tobacco: Never Substance Use Topics Alcohol use: Never Drug use: Never Family History: family history is not on file. Objective Vital Signs: Ht 157.5 cm (5' 2 ) Wt 68.6 kg (151 lb 4.8 oz) LMP (LMP Unknown) SpO2 99% BMI 27.67 kg/m Orthostatic Vitals: Sitting: BP 112/66 Pulse 55 Standing: BP 91/60 Pulse 68 No LMP recorded (lmp unknown). Patient has had a hysterectomy. Body mass index is 27.67 kg/m . General Physical Examination: General Exam General Neurological Examination: Neurological Exam Mental Status Awake, alert and oriented to person, place and time. Recent and remote memory are intact. Speech is normal. Language is fluent with no aphasia. Cranial Nerves CN II-XII grossly intact, except as otherwise noted. Motor Normal muscle bulk throughout. Normal muscle tone. The following abnormal movements were seen: Strength is 5/5 throughout all four extremities. Sensory Light touch is normal in upper and lower extremities. Reflexes Right Left Brachioradialis 2+ 2+ Biceps 2+ 2+ Patellar 2+ 2+ Achilles 2+ 2+ Plantar Downgoing Downgoing Coordination [id number]-[id number], rapid alternating movements and zgyy-rd-[id number] normal bilaterally without dysmetria. Gait Casual gait is normal including stance, stride, and arm swing. Movement Disorders Scales Performed: MDS-UPDRS Motor subscale condition of exam Medication Off/On/Naiive ON Time of UPDRS 1310 Time of Last Medication 1150 Last Medication Taken Sinemet 25/100, 1.5 tab DBS Right N/A DBS Left N/A MDS-UPDRS Motor subscale scores Speech 2-Mild. Loss of modulation, diction, or volume, with a few words unclear, but the overall sentences easy to follow. Facial Expression 1-Slight. Minimal masked facies manifested only by decreased frequency of blinking. Rigidity Neck 2-Mild. Rigidity detected without the activation maneuver, but full range of motion is easily achieved. Rigidity Right Upper Extremity 1-Slight. Rigidity only detected with activation maneuver. Rigidity Left Upper Extremity 2-Mild. Rigidity detected without the activation maneuver, but full range of motion is easily achieved. Rigidity Right Lower Extremity 2-Mild. Rigidity detected without the activation maneuver, but full range of motion is easily achieved. Rigidity Left Lower Extremity 2-Mild. Rigidity detected without the activation maneuver, but full range of motion is easily achieved. Finger Taps Right 3-Moderate. a) more than 5 interruptions during tapping or at least one longer arrest (freeze) in ongoing movement, b) moderate slowing, c) the amplitude decrements starting after the 1st tap. Finger Taps Left 3-Moderate. a) more than 5 interruptions during tapping or at least one longer arrest (freeze) in ongoing movement, b) moderate slowing, c) the amplitude decrements starting after the 1st tap. Hand Movements Right 3-Moderate. a) more than 5 interruptions during the movement or at least one longer arrest (freeze) in ongoing movement, b) moderate slowing, c) the amplitude decrements starting after the 1st [id number] sequence. Hand Movements Left 3-Moderate. a) more than 5 interruptions during the movement or at least one longer arrest (freeze) in ongoing movement, b) moderate slowing, c) the amplitude decrements starting after the 1st [id number] sequence. Arm Movements Right 2-Mild. a) 3 to 5 interruptions during the movements, b) mild slowing, c) the amplitude decrements midway in the sequence. Arm Movements Left 1-Slight. a) the regular rhythm is broken with one or two interruptions or hesitations of the movement, b) slight slowing, c) the amplitude decrements near the end of the sequence. Toe Taps Right 1-Slight. a) the regular rhythm is broken with one or two interruptions or hesitations of the tapping movement, b) slight slowing, c) the amplitude decrements near the end of the ten taps. Toe Taps Left 3-Moderate. a) more than 5 interruptions during the tapping movements or at least one longer arrest (freeze) in ongoing movement, b) moderate slowing, c) the amplitude decrements starting after the first tap. Leg Agility Right 1-Slight. a) the regular rhythm is broken with one or two interruptions or hesitations of the movement, b) slight slowing, c) the amplitude decrements near the end of the task. Leg Agility Left 2-Mild. a) 3 to 5 interruptions during the movements, b) mild slowness, c) the amplitude decrements midway in the task. Arise From Chair 3-Moderate. Needs to push off, but tends to fall back, or may have to try more than one time using arms of chair, but can get up without help. Gait 2-Mild. Independent walking but with substantial gait impairment. Gait Freezing 0-Normal. No freezing. Posture Stability 2-Mild. More than 5 steps, but subject recovers unaided. Posture 1-Slight. Not quite erect, but posture could be normal for older person. Body Bradykinesia 3-Moderate. Moderate global slowness and poverty of spontaneous movements. Postural Tremor Hand Right 0-Normal. No tremor. Postural Tremor Hand Left 0-Normal. No tremor. Kinetic Tremor Right 0-Normal. No tremor. Kinetic Tremor Left 0-Normal. No tremor. Rest Tremor Amplitude Right Upper Extremity 0-Normal. No tremor. Rest Tremor Amplitude Left Upper Extremity 0-Normal. No tremor. Rest Tremor Amplitude Right Lower Extremity 0-Normal. No tremor. Rest Tremor Amplitude Right Lower Extremity 0-Normal. No tremor. Rest Tremor Amplitude Lip/Jaw 0-Normal. No tremor. Rest Tremor Constancy 0-Normal. No tremor. MDS-UPDRS Motor subscale totals Left Total 16 Right Total 13 Midline Total 16 Tremor Total / 10 0 PIGD Total / 3 4 Overall Total 45 % Change Compared to Last Filed Total Assessment and Plan: Assessment Ms. Hunter is a right-handed 82 year old year old female with The following are the current problems noted and addressed during this visit: Argyria of skin, accidental or unintentional, sequela Parkinson's disease (hcc) (primary encounter diagnosis) Depression, unspecified depression type Plan 10/09/2022 Visit: Parkinson's disease - Increase Sinemet to 2 tablets for first 3 doses Depression - Try Lexapro 10 mg daily. Deconditioning - PT and OT referral Updated Movement Disorders Medication Schedule: Medications 8AM 12PM 4PM 8PM Sinemet 25/100 2 2 2 1.5 Lexapro 10 1 Thank you for allowing me to be part of the clinical care of this patient! I look forward to continued participation in the patient s care with you. Please do not hesitate to call with any questions. Sincerely, Linden Flynn MD documented in this encounter [facility] Evaluation note Note Date & Type Note Facility documented in this encounter [facility] Evaluation note Note Date & Type Note Facility documented in this encounter [facility] Reason for Referral Specialty Diagnoses / Procedures Referred By Arely carlson Referred To Contact Diagnoses Parkinson's disease (HCC) Procedures PROVIDER ORDERED FOLLOW UP OFFICE/OUTPATIENT [facility] MDM 60-74 MINUTES Linden Flynn MD [address] [place] [address] Referral ID Status Reason Start Date Expiration Date Visits Requested Visits Authorized [id number] Pending Review PCP Requested Referral 10/09/2022 01/07/2023 1 1 Specialty Diagnoses / Procedures Referred By Arely carlson Referred To Contact [facility] Diagnoses Parkinson's disease (HCC) Procedures CONSULT TO INVENTORY MANAGEMENT SPECIALIST OCCUPATIONAL THERAPY EVAL HIGH COMPLEX 60 MINS Linden Flynn MD [address] [facility] [facility] [place] [address] [facility] [address] [place] [address] Referral ID Status Reason Start Date Expiration Date Visits Requested Visits Authorized [id number] Pending Review Auto-Generat ed Referral 10/09/2022 10/09/2023 1 1 Specialty Diagnoses / Procedures Referred By Contac t Referred To Contact [facility] Diagnoses Parkinson's disease (HCC) Procedures CONSULT TO PHYSICAL THERAPY PHYSICAL THERAPY EVALUATION HIGH COMPLEX 45 MINS Linden Flynn MD [address] [place] [address] [facility] [address] [place], [place] [id number] Referral ID Status Reason Start Date Expiration Date Visits Requested Visits Authorized [id number] Pending Review Auto-Generat ed Referral 10/09/2022 10/09/2023 1 1 Summary Purpose Family History No Family History Records Found Advance Directives No Advanced Directives Records Found Additional Source Comments Source Comments (unrecognize d section and content) In the event this informatio n is protected by the Federal Confidentiality of Alcohol and Drug Abuse Patient Records regulations: The Federal rules restrict any use of the information to criminally investigate or prosecute any alcohol or drug abuse patient.[facility] the event this information is protected by the Federal Confidentiality of Alcohol and Drug Abuse Patient Records regulations: The Federal rules restrict any use of the information to criminally investigate or prosecute any alcohol or drug abuse patient.[facility] Reason for Visit (unrecogniz ed section and content) Reason Comments Parkinson's Disease Specialty Diagnoses / Procedures Referred By Contac t Referred To Contact Diagnoses Parkinson's disease Procedures PROVIDER ORDERED FOLLOW UP OFFICE/OUTPATIENT NEW HIGH MDM 60-74 MINUTES Linden Flynn MD [address] [place] [address] Referral ID Status Reason Start Date Expiration Date V isits Requested Visits Authorized [id number] Closed PCP Requested Referral 10/09/2022 01/07/2023 1 1 Care Teams (unrecognized sec tion and content) INFORMATION SOURCE (unrecogn ized section and content) FOR RECORDS PERTAINING TO PATIENTS WHO ARE OR HAVE BEEN ENROLLED IN A CHEMICAL DEPENDENCY/SUBSTANCEABUSE PROGRAM, SOME INFORMATION MAY BE OMITTED. This clinical summary was aggregated from multiple sources. Caution should be exercised in using it in the provision of clinical care. This summary normalizes information from multiple sources, and as a consequence, information in this document may materially change the coding, format and clinical context of patient data. In addition, data may be omitted in some cases. CLINICAL DECISIONS SHOULD BE BASED ON THE PRIMARY CLINICAL RECORDS. [facility] [employer] [facility]. provides no warranty or guarantee of the accuracy or completeness of information in this document.
[2023-05-01 14:23] VITALS: BP 122/51; PULSE 70; RESP 17; O2SAT 98
[2023-05-01 14:27] LABS: Absolute Lymphocyte Count 1.22 X10^3/uL (0.83-4.51); Absolute Neutrophil Count 3.8 X10^3/uL (2.0-7.7); Basophil# 0.05 X10^3/uL; Basophil% 0.8 % (0-1); Eosinophil# 0.32 X10^3/uL; Eosinophils% 5.2 % (0-5); Hematocrit 34.3 % (37-47); Hemoglobin 10.7 g/dL (12.0-15.0); Lymphocyte # 1.22 X10^3/ul (0.83-4.51); Lymphocyte % 19.9 % (19-41); Mean Corp Hgb Conc 31.2 g/dL (32-36); Mean Corpuscular Hgb 28.2 pg (27.0-32.0); Mean Corpuscular Volume 90.3 fL (81-99); Mean Platelet Vol. 8.4 fl (6.2-12.0); Monocyte# 0.71 X10^3/uL; Monocyte% 11.6 % (0-10); NRBC Flagged by Analyzer 0 % (0-5); Neutrophil % 62.2 % (47-70); Platelet Count 311 K/mm3 (150-450); RBC Distribution Width CV 13.2 % (11.6-14.6); RBC Distribution Width SD 43.1 fl (35.1-43.9); White Blood Count 6.1 K/mm3 (4.4-11.0)
[2023-05-01 14:41] LABS: Anion Gap 5 (5-15); BUN 15 mg/dL (7-18); BUN/Creat Ratio 18.9 RATIO (10-20); Calcium,Total 8.9 mg/dL (8.5-10.1); Chloride 106 mmol/L (98-107); Creatinine, Serum 0.79 mg/dL (0.55-1.02); EST Glomerular Filtration Rate 74 mL/min (>60); Est Glom Filt Rate - Afr Amer 89 mL/min (>60); Estimated Creatinine Clearance 51.35 ml/min; Glucose 87 mg/dL (74-106); International Normalized Ratio 1.3; Potassium 4.4 mmol/L (3.5-5.1); Prothrombin Time (Protime)PT. 16.1 SECONDS (11.7-14.9); Sodium Level 139 mmol/L (136-145)
--- NOTE | 2023-05-01 15:12 | ED.RN ---
called Chitra nurse at [facility] to inform of pt's discharge. [facility] calling for transport back to facility.
--- NOTE | 2023-05-01 15:18 | NURSING ---
CALLED [facility], ETA IS 90 MIN
[2023-05-01 16:30] VITALS: BP 122/69; PULSE 64; RESP 18; O2SAT 97
--- NOTE | 2023-05-01 16:49 | NURSING ---
NEW ETA..1845 TO 194
[2023-05-01 18:05] VITALS: BP 120/69; PULSE 67; RESP 16; O2SAT 98
== END 2023-05-01 18:06 | disposition home or self-care (01) ==
PROVIDERS: Emergency Provider Emergency Medicine; PCP Nurse Practitioner; Visit Provider Emergency Medicine
DX: S06.0X0A Concussion without loss of consciousness, initial encounter (principal); J43.9 Emphysema, unspecified; I27.20 Pulmonary hypertension, unspecified; M54.2 Cervicalgia; G20.A1 Parkinson's disease without dyskinesia, without mention of fluctuations; W01.10XA Fall on same level from slipping, tripping and stumbling with subsequent striking against unspecified object, initial encounter; I25.10 Atherosclerotic heart disease of native coronary artery without angina pectoris; I10 Essential (primary) hypertension; E78.5 Hyperlipidemia, unspecified; Z79.82 Long term (current) use of aspirin; Z79.02 Long term (current) use of antithrombotics/antiplatelets; Z79.899 Other long term (current) drug therapy; I25.2 Old myocardial infarction; Z95.5 Presence of coronary angioplasty implant and graft; Z87.891 Personal history of nicotine dependence
CPT/HCPCS: 36415; 70450; 72125; 80048; 85025; 85610; 85730; 99282; A4216

== ENCOUNTER → 2023-09-16 | Outpatient (CLI) | payer MEDICARE, MEDICAID, SELFPAY ==
[2023-09-16 16:24] LABS: Absolute Lymphocyte Count 1.76 X10^3/uL (0.83-4.51); Absolute Neutrophil Count 4.4 X10^3/uL (2.0-7.7); Basophil# 0.03 X10^3/uL; Basophil% 0.4 % (0-1); Eosinophil# 0.19 X10^3/uL; Eosinophils% 2.7 % (0-5); Hematocrit 39.8 % (37-47); Hemoglobin 12.5 g/dL (12.0-15.0); Lymphocyte # 1.76 X10^3/ul (0.83-4.51); Lymphocyte % 25.3 % (19-41); Mean Corp Hgb Conc 31.4 g/dL (32-36); Mean Corpuscular Hgb 28.4 pg (27.0-32.0); Mean Corpuscular Volume 90.5 fL (81-99); Mean Platelet Vol. 8.1 fl (6.2-12.0); Monocyte# 0.62 X10^3/uL; Monocyte% 8.9 % (0-10); NRBC Flagged by Analyzer 0 % (0-5); Neutrophil # 4.35 X10^3/uL (2.7-7.7); Neutrophil % 62.6 % (47-70); Platelet Count 335 K/mm3 (150-450); RBC Distribution Width CV 13.2 % (11.6-14.6); RBC Distribution Width SD 43.5 fl (35.1-43.9)
[2023-09-16 16:57] LABS: Anion Gap 2 (5-15); BUN 16 mg/dL (7-18); BUN/Creat Ratio 20.9 RATIO (10-20); Chloride 108 mmol/L (98-107); Creatinine, Serum 0.76 mg/dL (0.55-1.02); EST Glomerular Filtration Rate 77 mL/min (>60); Est Glom Filt Rate - Afr Amer 93 mL/min (>60); Glucose 117 mg/dL (74-106); Potassium 4.8 mmol/L (3.5-5.1); Sodium Level 138 mmol/L (136-145); Thyroid Stim Hormone (TSH) 1.46 uIU/mL (0.358-3.74)
== END | disposition home or self-care (01) ==
PROVIDERS: PCP Nurse Practitioner; Referring Provider Nurse Practitioner Gerontology; Visit Provider Nurse Practitioner Gerontology
DX: R53.83 Other fatigue (principal)
CPT/HCPCS: 36415; 80048; 84443; 85025

== ENCOUNTER → 2023-09-25 | Outpatient (CLI) | payer MEDICARE, MEDICAID, SELFPAY ==
[2023-09-25] MEDS: Lidocaine 2% (5ml sdv) 5 ML VIAL.MPF (08:10)
[2023-09-25] MEDS: Betamethasone/Betamethasone 30 MG/5 ML Vial 6 MG INTRAARTIC (08:10)
[2023-09-25] MEDS: Lidocaine 1% (5 ml sdv) 5 ML Vial 3 ML INFILT (08:10)
--- NOTE | 2023-09-25 08:33 | PCM.OP.PRO ---
Procedure Report Date of Procedure: 09/25/23 Assessment & Plan Assessment/Plan (1) Left hip pain: PLAN: PROCEDURE: Fluoroscopic Guided left hip injection ORDERING PROVIDER: Dr. Tijerina INDICATION: Female, 83 years old. Left hip pain. FLUOROSCOPY TIME (if supplied): 0 minutes/33 seconds. 13.13 mGy PROVIDER: STONE Ya PROCEDURE: CONSENT: The risks, benefits, and alternatives to the procedure were explained to the patient. The specific risks of bleeding, infection, and neurovascular injury were detailed and accepted. Witnessed informed consent was obtained. TECHNIQUE: The left hip access site was prepped and draped in sterile fashion. 2% Lidocaine was administered subcutaneously for local anesthesia. A 22-gauge spinal needle was positioned under radiographic fluoroscopic localization. Approximately 2 cc of Isovue 300 instilled for localization purposes. Medication was then injected. MEDICATIONS: 6 mg of betamethasone and 3 ml of 1% lidocaine. The spinal needle was removed, and a dressing was applied. The patient tolerated the procedure well without any immediate complications. IMPRESSION: Successful fluoroscopic guided left hip injection. Procedures Radiology Radiology Xray Procedures: 09003 Inj Asp major Joint - Hip, Knee Multi Select Codes Radiology Rad Xray Procedures: 96986-82 Fluoroscopic guidance for needle placement
== END | disposition home or self-care (01) ==
PROVIDERS: PCP Nurse Practitioner; Referring Provider Specialist; Visit Provider Specialist
DX: S72.142D Displaced intertrochanteric fracture of left femur, subsequent encounter for closed fracture with routine healing (principal); R53.1 Weakness; X58.XXXD Exposure to other specified factors, subsequent encounter
CPT/HCPCS: 20610; 77002; J0702

== ENCOUNTER → 2024-06-03 | Outpatient (CLI) | payer MEDICARE, MEDICAID, SELFPAY ==
--- NOTE | 2024-06-03 12:54 | NM_ITS ---
PROCEDURE: HEPATOBILLIARY IMG W/PHARM INT REASON FOR EXAM: Right upper quadrant pain and nausea. TECHNIQUE: Intravenous Choletec with planar imaging of the abdomen. 1.4 mcg Kinevac intravenously approximately 15 minutes after the radiopharmaceutical with additional anterior imaging and a region of interest drawn around the gallbladder to calculate a time-activity curve. RADIOPHARMACEUTICAL: 5 mCi of technetium labeled mebrofenin COMPARISON: None. FINDINGS: There is good uptake of the radiopharmaceutical by the liver. Normal gallbladder visualization with the gallbladder identified by 30 minutes. Gallbladder Ejection Fraction: 97 % (Normal is >35%) NM/Hepatobilliary Img w/Pharm Int IMPRESSION: NORMAL HIDA SCAN AND GALLBLADDER EJECTION FRACTION. Reading Location: [place] [id number]
== END | disposition home or self-care (01) ==
LOC: NM 12:52
PROVIDERS: PCP Internal Medicine Geriatric Medicine; Referring Provider Nurse Practitioner Gerontology; Visit Provider Nurse Practitioner Gerontology
DX: K82.8 Other specified diseases of gallbladder (principal)
CPT/HCPCS: 78227; A9537; J2805

== ENCOUNTER → 2024-11-03 | Outpatient (CLI) | payer MEDICARE, MEDICAID, SELFPAY ==
--- NOTE | 2024-11-03 07:11 | ECHOD_ITS ---
Reason For Study Reason For Study: CAD/ASHD Procedure This was a 2D Doppler, Color Flow transthoracic echocardiogram. Exam performed in department. Left Ventricle Normal size and thickness. The LV ejection fraction is 65 %. Diastolic function is indeterminate. Right Ventricle Normal right ventricle. Atria There is mild biatrial dilatation. Mitral Valve Trivial mitral valve insufficiency. Tricuspid Valve Moderately severe (3+) tricuspid valve insufficiency. Right ventricular systolic pressure estimated to be 58 mmHg. Aortic Valve Trisinus/trileaflet aortic valve. Pulmonic Valve The pulmonic valve is not well visualized. Great Vessels Normal sized aortic root. Pericardium/Pleural No pericardial effusion. MMode/2D Measurements & Calculations LVIDd: 4.3 cm IVSd: 0.95 cm LAV(MOD- bp): 56.3 ml LVIDs: 2.4 cm LVPWd: 0.90 cm LAV(MOD- bp) Indexed: 32.3 ml/m2 RVDd: 3.6 cm FS: 42.9 % LAV(MOD- sp2): 57.2 ml LAV(MOD- sp4): 46.9 ml SV(MOD-sp4): 42.1 ml SV(sp4- el): 44.6 ml LVAd ap4: 22.7 cm2 LVLd ap4: 6.8 cm SI(MOD-sp4): 24.2 ml/m2 EDV(MOD-sp4): 63.0 ml EDV(sp4-el): 64.0 ml LVAs ap4: 11.4 cm2 LVLs ap4: 5.7 cm ESV(MOD-sp4): 20.9 ml ESV(sp4-el): 19.4 ml EF(MOD-sp4): 66.9 % EF(sp4-el): 69.7 % LA A4 area: 17.7 cm2 LA dimension(2D): 4.2 cm RA A4 area: 13.9 cm2 TAPSE: 2.3 cm Time Measurements MV dec time: 0.18 sec Doppler Measurements & Calculations MV E max jorge: 96.6 cm/sec Lat Peak E' Jorge: 7.9 cm/sec Med Peak E' Jorge: 11.4 cm/sec MV A max jorge: 99.7 cm/sec E/E' lat: 12.3 E/E' med: 8.5 MV E/A: 0.97 MV V2 max: 120.4 cm/sec MV P1/2t max jorge: 121.7 cm/sec Ao V2 max: 169.4 cm/sec MV max P.8 mmHg MV P1/2t: 67.2 msec Ao max P.5 mmHg MV V2 mean: 77.9 cm/sec Ao V2 mean: 117.2 cm/sec MV mean P.8 mmHg MV dec slope: 530.5 cm/sec2 Ao mean P.3 mmHg MV V2 VTI: 29.6 cm MVA(P1/2t): 3.3 cm2 Ao V2 VTI: 39.3 cm LV V1 max: 117.1 cm/sec PA V2 max: 96.2 cm/sec TR max jorge: 362.9 cm/sec LV V1 max P.5 mmHg TR max P.7 mmHg ECHO/Echo Complete Interpretation Summary The LV ejection fraction is 65 %. Diastolic function is indeterminate. There is mild biatrial dilatation. Moderately severe (3+) tricuspid valve insufficiency. Right ventricular systolic pressure estimated to be 58 mmHg. Moderate pulmonary hypertension. Ordering Physician: Danielle Vernon Referring Physician: Danielle Vernon Performed By: Irineo Walker [facility]
--- OUTSIDE RECORDS SUMMARY | 2024-11-03 07:14 | XMS RPT_ITS | CCD ---
Author Organization [facility] Care Team Providers Care Cut Pressman Name Role Phone Unavailable Primary Care Provider Unavailkuldeep e Rodríguez SLITTER OPERATOR.CEMENTER MACHINE, Alexandra L Primary Care Provide r Rodríguez RETAIL SPECIAL EVENT ASSOCIATE, RETAIL SPECIAL EVENT ASSOCIATE-C Alexandra Primary Care Provider Rodríguez RETAIL SPECIAL EVENT ASSOCIATE, RETAIL SPECIAL EVENT ASSOCIATE-C Alexandra Referring Provider Dr. Danielle Vernon Attending Provider Dr. Law Gold Emergency Provider Dr. Jasmin Steele Admit Provider Dr. Jasmin Steele Other Provider Dr. Davian Grier Other Provider [phone] Darline Lundy Attending Provider Dr. Darline Lundy Other Provider Dr. Jaylon Boone Attending Provider Rodríguez RETAIL SPECIAL EVENT ASSOCIATE, RETAIL SPECIAL EVENT ASSOCIATE-C Alexandra Primary Care Provider Dr. Law Gold Emergency Provider Dr. Jasmin Steele Admit Provider Dr. Jasmin Steele Other Provider Dr. Davian Grier Other Provider Dr. Darline Lundy Attending Provider Dr. Darline Lundy Other Provider Dr. Jaylon Boone Attending Provider ALEXANDRA ARREGUIN Primary Care Unavailable EM FLYNN Referring Unavailable Rodríguez SLITTER OPERATOR.CEMENTER MACHINE, Alexandra L Primary Care Provide r TAI, DIDI Referring Unavailable ARREGUIN, ALEXANDRA L Primary Care Unavailable TAI, DIDI Referring Unavailable ARREGUIN, ALEXANDRA L Primary Care Unavailable TAI, DIDI Referring Unavailable ARREGUIN, ALEXANDRA L Primary Care Unavailable PROVIDER, UNKNOWN Referring Unavailable ARREGUIN, ALEXANDRA L Primary Care Unavailable Arreguin RETAIL SPECIAL EVENT ASSOCIATE-C, Alexandra Primary Care Provider [phone] Arreguin RETAIL SPECIAL EVENT ASSOCIATE-C, Alexandra Referring Provider Dr. Danielle Vernon MD Attending Provider Tai RETAIL SPECIAL EVENT ASSOCIATE-CDidi Attending Provider Tai RETAIL SPECIAL EVENT ASSOCIATE-C, Didi Referring Provider Tressa Alan Primary Care Provider Shavonne vailable ANDRAPALLIYAL, ARMEN Attending Unavailabl e EM FLYNN Referring Unavailable ARREGUIN, ALEXANDRA L Primary Care Unavailable ARREGUIN, ALEXANDRA L Primary Care Unavailable LAURA JASSO Attending Unavailab MARIE Valiente Referring Unavailable ARREGUIN, ALEXANDRA L Primary Care Unavailable MARIE RAMIREZ Attending Unavailable EM FLYNN Referring Unavailable ARREGUIN, ALEXANDRA L Primary Care Unavailable EM FLYNN Attending Unavailable EM FLYNN Referring Unavailable ARREGUIN, ALEXANDRA L Primary Care Unavailable EM FLYNN Attending Unavailable EM FLYNN Referring Unavailable ARREGUIN, ALEXANDRA L Primary Care Unavailable EM FLYNN Attending Unavailable EM FLYNN Referring Unavailable ARREGUIN, ALEXANDRA L Primary Care Unavailable ANDRAPALLIGEORGI, ARMEN Referring Unavailabl e ARREGUIN, ALEXANDRA L Primary Care Unavailable Tai RETAIL SPECIAL EVENT ASSOCIATE-C, Didi Attending Provider Tai RETAIL SPECIAL EVENT ASSOCIATE-C, Didi Referring Provider Tressa Alan Primary Care Provider Shavonne vailable Tressa Alan Referring Provider Demario Vernon MD, Dr. Santos Attending Provider Danielle Vernon Attending Unavailable Arreguin RETAIL SPECIAL EVENT ASSOCIATE, Alexandra Referring Unavailable Arreguin RETAIL SPECIAL EVENT ASSOCIATE, Alexandra Primary Care Unavailable Danielle Vernon Attending Unavailable Tressa Alan Referring Unavailab Tressa Love Primary Care Unavailab melissa Ljuan NP, Didi Referring Unavailable Didi Lujan NP Attending Unavailable Tressa Alan Primary Care Unavailab le Allergies Allergy Classification Reported Allergen(s) Allergy Type Date of Onset Reaction(s) Facility Acetaminophen / oxyCODONE (1 source) Acetaminophen / oxyCODONE; Translations: [OXYCODONE-ACETAM INOPHEN] Drug Allergy 3 [facility] (20 sources) Acetaminophen / oxyCODONE; Translations: [OXYCODONE-ACETAM INOPHEN] Drug Allergy 3 Rash, Itching [facility] (5 sources) oxyCODONE Drug Allergy 3 [facility] (3 sources) ARIPiprazole; Translations: [ARIPIPRAZOLE] Drug Allergy 5 [facility] (3 sources) Haloperidol; Translations: [HALOPERIDOL] Drug Allergy 5 [facility] (3 sources) Metoclopramide; Translations: [METOCLOPRAMIDE] Drug Allergy 5 [facility] (3 sources) Prochlorperazine; Translations: [PROCHLORPERAZINE ] Drug Allergy 5 [facility] (3 sources) Promethazine; Translations: [PROMETHAZINE] Drug Allergy 5 [facility] (1 source) oxyCODONE Drug Allergy 5 [facility] Medications Current Medications Medication Drug Class(es) Dates Sig (Normalized) Sig (Original) acetaminophen 500 mg oral capsule (20 sources) Start: 05-01-2023 Acetaminophen 500 mg cap Take by mouth. 05/01/2023 Active Start: 05-01-2023 acetaminophen 325 mg cap Take by mouth. 0 05/01/2023 Active Start: 05-01-2023 take 2 capsules by m outh every six hours as needed for pain Acetaminophen 325 mg capsule Active 650 mg PO EVERY 6 HOURS as needed for fever or pain May 01, 2023 1:00am Start: 05-01-2023 take 650 mg by mouth every six hours Acetaminophen Active 650 MG PO EVERY 6 HOURS May 01, 2023 12:00am Comment on above: Take by mouth. alendronic acid 70 mg oral tablet (13 sources) Bisphosphonate Start: 09-27-2024 take 1 tablet by mouth every week Alendronate 70 mg tablet Active 70 mg PO EVERY WEEK September 27, 2024 12:00am Start: 09-16-2023 End: 03-16-2024 take 1 tablet by mouth every week Alendronate 70 mg tablet Discontinued 70 mg PO EVERY WEEK September 16, 2023 12:00am March 16, 2024 10:31am amLODIPine 10 mg oral tablet (2 sources) Dihydropyridine Calcium Channel Duncan Start: 03-16-2024 take 1 tablet by mouth once daily Amlodipine 10 mg tablet Active 10 mg PO daily March 16, 2024 1:00am aspirin 81 mg delayed release oral tablet (20 sources) Platelet Aggregation Inhibitor, Nonsteroidal Anti-inflammatory Drug Start: 02-25-2022 take 1 tablet by mouth once daily Aspirin (Adult Aspirin Regimen) 81 mg tablet,delayed release (DR/EC) Active 81 mg PO DAILY February 25, 2022 1:00am Comment on above: Take 81 mg by mouth once daily. carbidopa 25 mg / levodopa 100 mg oral tablet (20 sources) Aromatic Amino Acid Decarboxylation Inhibitor, Aromatic Amino Acid Start: 09-27-2024 Carbidopa-Levodo pa 25-100 mg tablet Active {tbl} PO September 27, 2024 12:00am Start: 12-29-2022 End: 03-16-2024 Carbidopa-Levodopa 25-100 mg tablet Discontinued 1.5 {tbl} PO AT BEDTIME December 29, 2022 1:46pm March 16, 2024 10:31am Start: 12-29-2022 take 1.5 tablets by mouth at bedtime Carbidopa-Levodopa Active 1.5 TABLET PO AT BEDTIME December 29, 2022 12:46pm Start: 12-29-2022 take 1.5 tablets by mouth once Carbidopa-Levodopa Active 1.5 TABLET PO ONCE December 29, 2022 1:46pm Start: 12-29-2022 End: 09-16-2023 Carbidopa-Levodopa 25-100 mg tablet Discontinued 2 {tbl} PO THREE TIMES A DAY December 29, 2022 12:00am September 16, 2023 2:56pm Start: 12-29-2022 take 2 tablets by mo [facility] three times daily Carbidopa-Levodopa Active 2 TABLET PO THREE TIMES A DAY December 28, 2022 11:00pm Start: 10-09-2022 carbidopa-levo dopa (SINEMET) 25-100 mg per tablet Take 2 tablet daily at 8AM, 2 tablet daily at 12PM, 2 tablet daily at 4PM, and 1.5 tablet daily at 8PM. 225 tablet 11 10/09/2022 Active Start: 02-25-2022 End: 01-20-2023 Carbidopa-Levodopa 25-100 mg tablet Discontinued 1.5 {tbl} PO .qid 540 90 April 25, 2022 7:14pm December 29, 2022 1:49pm Start: 02-25-2022 End: 02-25-2022 Carbidopa-Levodopa 10-100 mg tablet,disintegrating Discontinued 1 {tbl} PO THREE TIMES A DAY February 25, 2022 1:00am February 25, 2022 1:22pm Start: 02-25-2022 End: 12-29-2022 take 1.5 tablets by mouth four times daily Carbidopa-Levodopa Discontinued 1.5 TABLET PO .qid 540 90 April 25, 2022 6:14pm December 29, 2022 12:49pm Start: 02-25-2022 End: 02-25-2022 take 1 tablet by mouth three times daily Carbidopa-Levodopa Discontinued 1 TABLET PO THREE TIMES A DAY February 25, 2022 12:00am February 25, 2022 12:22pm Comment on above: Take 1 tablet by [facility] four times daily. Take 4 tablets daily. Take 1.5 tablets at 8a, 1.5 tablets at 12p, 1.5 tablets at 4p and 1.5 tablets at 8p. Take 2 tablet daily at 8AM, 2 tablet daily at 12PM, 2 tablet daily at 4PM, and 1.5 tablet daily at 8PM. celecoxib 200 mg oral capsule (4 sources) Nonsteroidal Anti-inflammatory Drug Start: 09-27-2024 take 1 capsule by mouth once daily Celecoxib 200 mg capsule Active 200 mg PO daily September 27, 2024 12:00am Start: 12-23-2023 celecoxib (OSLE EBREX) 200 mg capsule 12/23/2023 Active Ceramides 1,3,6-11 (CERAVE D AILY MOISTURIZING) lotn (9 sources) Ceramides 1,3,6- 11 (CERAVE DAILY MOISTURIZING) lotn Apply to affected area. Active Ceramides 1,3,6- 11 (CERAVE DAILY MOISTURIZING) lotn Apply to affected area. 0 Active cholecalciferol 0.025 mg oral capsule (8 sources) Vitamin D Start: 02-25-2022 End: 09-16-2023 take 1 capsule by mouth once daily Cholecalciferol (Vitamin D3) 25 mcg (1,000 unit) capsule Active 25 ug PO DAILY September 16, 2023 12:00am cholecalciferol, vitamin D3, (VITAMIN D3 ORAL) (20 sources) cholecalciferol, vitamin D3, (VITAMIN D3 ORAL) Take by mouth once daily. Active cholecalciferol, vitamin D3, (VITAMIN D3 ORAL) Take by mouth once daily. 0 Active Comment on above: Take by mouth once d aily. DULoxetine 20 mg delayed release oral capsule (20 sources) Serotonin and Norepinephrine Reuptake Inhibitor Start: take 1 capsule by mouth once daily Duloxetine 20 mg capsule,delayed release(DR/EC) Active 20 mg PO daily September 27, 2024 12:00am Start: 01-19-2023 End: 07-06-2023 DULoxetine (CYMBALTA) 20 mg capsule Start: 12-29-2022 End: 03-16-2024 take 2 capsules by mouth once daily Duloxetine 20 mg capsule,delayed release(DR/EC) Discontinued 40 mg PO DAILY December 29, 2022 1:47pm March 16, 2024 10:32am Start: 12-29-2022 take 40 mg by mouth once daily Duloxetine Active 40 MG PO DAILY December 29, 2022 12:47pm Start: 07-10-2022 End: 12-29-2022 take 2 capsules by mouth twice daily Duloxetine 20 mg capsule,delayed release(DR/EC) Discontinued 20 mg PO TWICE A DAY 60 July 10, 2022 12:00am December 29, 2022 1:49pm Start the medication at once a day for 15 days then start taking 2 x a day Comment on above: 2 capsules once omega y. guaiFENesin (2 sources) GUAIFENESIN ORAL Take by mouth. Active hydrOXYzine hydrochloride 25 mg oral tablet (4 sources) Antihistamine Start: 03-16-20 take 1 tablet by mouth at bedtime Hydroxyzine Hcl 25 mg tablet Active 25 mg PO AT BEDTIME March 16, 2024 1:00am mag hydrox/aluminum hyd/simeth (MYLANTA DOUBLE-STRENGTH ORAL) (2 sources) mag hydrox/alumi num hyd/simeth (MYLANTA DOUBLE-STRENGTH ORAL) Take by mouth. Active 24 hr mirabegron 25 mg extended release oral tablet (20 sources) beta3-Adrenergic Agonist Start: 09-28-19 take 1 tablet by mouth once daily Mirabegron (Myrbetriq) 25 mg tablet extended release 24 hr Active 25 mg PO daily September 27, 2024 12:00am Start: 06-27-2023 End: 03-16-2024 take 1 tablet by mouth once daily Mirabegron 25 mg tablet extended release 24 hr Discontinued 25 mg PO DAILY September 16, 2023 12:00am March 16, 2024 10:32am Comment on above: 1 tablet once daily. nitrofurantoin, macrocrystals 100 mg oral capsule (2 sources) Nitrofuran Antibacterial Start: take 1 capsule by mouth at mealtime Nitrofurantoin Macrocrystal 100 mg capsule Active 100 mg PO AT BEDTIME March 16, 2024 1:00am must administer with a meal/food polyethylene glycol 3350 82507 mg powder for oral solution (20 sources) Osmotic Laxative Start: Polyethylene Glycol 3350 (Clearlax) 17 gram/dose powder Active 17 g PO DAILY May 01, 2023 1:00am Comment on above: Take by mouth. psyllium 3400 mg powder for oral suspension (3 sources) Start: Psyllium Husk (Stacie-Mucil) 3.4 gram/5.4 gram powder Active 1 tbsp PO DAILY May 01, 2023 1:00am mix into at least 8 oz of water or juice before administering Start: 05-01-2023 Psyllium Husk (Stacie-Mucil) 3.4 gram/5.4 gram powder Active 1 tbsp PO DAILY May 01, 2023 12:00am mix into at least 8 oz of water or juice before administering psyllium (KONSYL) packet (20 sources) Start: 05-01-2023 psyllium (KONS YL) packet Take by mouth. 05/01/2023 Active Start: 05-01-2023 psyllium (KONS YL) packet Take by mouth. 0 05/01/2023 Active Comment on above: Take by mouth. Senna-Docusate Sodium (1 source) Start: 05-01-2023 take 1 capsule by mouth twice daily Senna-Docusate Sodium Active 1 CAP PO TWICE A DAY May 01, 2023 12:00am Senna-Docusate Sodium capsule (2 sources) Start: 05-01-2023 Senna-Docusate Sodium capsule Active 1 NMA PO TWICE A DAY May 01, 2023 1:00am Start: 05-01-2023 Senna-Docusate Sodium capsule Active 1 NMA PO TWICE A DAY May 01, 2023 12:00am traMADol hydrochloride 50 mg oral tablet (20 sources) Opioid Agonist Start: 09-27-2024 take 1 tablet by mouth three times daily as needed Tramadol 50 mg tablet Active 50 mg PO THREE TIMES A DAY as needed September 27, 2024 12:00am Start: 06-26-2023 End: 03-16-2024 take 1 tablet by mouth twice daily as needed Tramadol 50 mg tablet Discontinued 50 mg PO TWICE A DAY as needed September 16, 2023 12:00am March 16, 2024 10:32am Start: 05-01-2023 End: 03-16-2024 take 1 tablet by mouth every eight hours as needed for pain Tramadol 50 mg tablet Discontinued 50 mg PO Q8H as needed for pain May 01, 2023 1:00am March 16, 2024 10:32am vitamin b12 0.5 mg oral tablet (20 sources) Vitamin B12 Start: 07-06-2023 take 1 tablet by mouth once daily cyanocobalamin (VITAMIN B-12) 500 mcg tablet Take 1 tablet by mouth once daily. 07/06/2023 Active Comment on above: Take 1 tablet by mouth once daily. Completed/Discontinued Medications Medication Drug Class(es) Dates Sig (Normalized) Sig (Original) ascorbic acid 500 mg oral tablet (20 sources) Vitamin C Start: 05-01-2023 End: 03-16-2024 take 1 tablet by mouth twice daily Ascorbic Acid (Vitamin C) (C-500) 500 mg tablet Discontinued 500 mg PO TWICE A DAY May 01, 2023 1:00am March 16, 2024 10:31am Comment on above: Take 1 tablet by ibis th two times a day. atorvastatin 40 mg oral tablet (20 sources) HMG-CoA Reductase Inhibitor Start: 02-25-2022 End: 05-01-2023 take 1 tablet by mouth once daily Atorvastatin 40 mg tablet Discontinued 40 mg PO DAILY August 05, 2022 9:55am May 01, 2023 2:39pm Comment on above: Take 1 tablet by ibis th every afternoon. 30 ml bupivacaine hydrochloride 2.5 mg/ml injection (2 sources) Amide Local Anesthetic Start: 10-02-2023 End: 10-02-2023 bupivacaine (PF) 0.25 % (2.5 mg/mL) 4 mL injection (SENSORCAINE MPF) carvedilol 3.125 mg oral tablet (20 sources) alpha-Adrenergic Duncan, beta-Adrenergic Duncan Start: 07-31-2022 End: 09-29-2023 take 1 tablet by mouth twice daily at mealtime Carvedilol 3.125 mg tablet Discontinued 3.125 mg PO TWICE A DAY July 31, 2022 11:42am February 06, 2023 2:08pm must administer with a meal/food Comment on above: Take 3.125 mg by ibis th twice daily with meals. cephalexin 500 mg oral capsule (5 sources) Cephalosporin Antibacterial Start: 07-10-2022 End: 07-20-2022 take 1 capsule by mouth twice daily Cephalexin 500 mg capsule Discontinued 500 mg PO TWICE A DAY 30 01July 10, 2022 12:00am July 19, 2022 12:00am July 20, 2022 12:04am clopidogrel 75 mg oral tablet (20 sources) [id number] Platelet Inhibitor Start: 02-24-2022 End: 09-29-2023 take 1 tablet by mouth once daily Clopidogrel (Plavix) 75 mg tablet Discontinued 75 mg PO DAILY April 25, 2022 7:14pm September 16, 2023 2:56pm Comment on above: Take 75 mg by mouth once daily. 1 ml denosumab 60 mg/ml prefilled syringe (2 sources) RANK Ligand Inhibitor Start: 03-16-2024 End: 09-27-2024 Denosumab 60 mg/mL syringe Discontinued 60 mg SC every 6 months March 16, 2024 1:00am September 27, 2024 11:21am docusate sodium 50 mg / sennosides, skilled nursing 8.6 mg oral tablet (19 sources) Start: 05-01-2023 End: 06-28-2024 senna-docusate (SENNA-S) 8.6-50 mg per tablet Take by mouth. 05/01/2023 06/28/2024 Discontinued Comment on above: Take by mouth. escitalopram 5 mg oral tablet (11 sources) Serotonin Reuptake Inhibitor Start: 05-01-2023 End: 09-16-2023 take 1 tablet by mouth once daily Escitalopram Oxalate 5 mg tablet Discontinued 5 mg PO DAILY May 01, 2023 1:00am September 16, 2023 2:56pm Start: 10-09-2022 End: 10-09-2023 take 1 tablet by mouth at bedtime Escitalopram Oxalate 10 mg tablet Discontinued 10 mg PO AT BEDTIME December 29, 2022 12:00am May 01, 2023 2:55pm Comment on above: Take 1 tablet by ibis once daily. ferrous sulfate 325 mg oral tablet (20 sources) Start: 05-01-2023 End: 06-28-2024 take 1 tablet by mouth twice daily Ferrous Sulfate (Feosol) 325 mg (65 mg iron) tablet Discontinued 325 mg PO TWICE A DAY May 01, 2023 1:00am March 16, 2024 10:32am Comment on above: Take by mouth. 24 hr fesoterodine fumarate 4 mg extended release oral tablet (18 sources) Start: 07-31-2022 End: 09-16-2023 take 1 tablet by mouth every twenty-four hours at bedtime Fesoterodine 4 mg tablet extended release 24 hr Discontinued 4 mg PO AT BEDTIME July 31, 2022 12:00am September 16, 2023 2:56pm Start: 07-31-2022 End: 09-29-2023 take 4 mg by mouth at bedtime Fesoterodine Active 4 MG PO AT BEDTIME July 30, 2022 11:00pm Comment on above: Take 4 mg by mouth o nce daily. furosemide 40 mg oral tablet (5 sources) Loop Diuretic Start: 3 End: 3 take 1 tablet by mouth once daily Furosemide 40 mg tablet Discontinued 40 mg PO DAILY April 25, 2022 1:00am July 31, 2022 11:03am losartan potassium 25 mg oral tablet (20 sources) Angiotensin 2 Receptor Duncan Start: 3 End: 5 take 1 tablet by mouth once daily Losartan 25 mg tablet Discontinued 25 mg PO DAILY December 29, 2022 12:00am March 16, 2024 10:32am Comment on above: Take 1 tablet by ibis th every afternoon. mecobalamin 1 mg chewable tablet (3 sources) Start: 4 End: 4 Mecobalamin (Vitamin B12) 1,000 mcg tablet,chewable Discontinued 500 ug PO DAILY May 01, 2023 1:00am September 16, 2023 2:57pm Start: 05-01-2023 take 500 ug by mouth once omega y Mecobalamin (Vitamin B12) Active 500 MCG PO DAILY May 01, 2023 12:00am meloxicam 15 mg oral tablet (2 sources) Nonsteroidal Anti-inflammatory Drug Start: 03-16-2024 End: 09-27-2024 take 1 tablet by mouth once daily Meloxicam 15 mg tablet Discontinued 15 mg PO daily March 16, 2024 1:00am September 27, 2024 11:21am metoprolol tartrate 25 mg oral tablet (20 sources) beta-Adrenergic Duncan Start: 06-19-2023 End: 06-28-2024 metoprolol tartrate, short acting, (LOPRESSOR) 25 mg tablet 0.5 tablets two times a day. 06/19/2023 06/28/2024 Discontinued Start: 05-01-2023 End: 03-16-2024 Metoprolol Tartrate 25 mg ta blet Discontinued 12.5 mg PO Q12H May 01, 2023 1:00am March 16, 2024 2:38pm Start: 05-01-2023 take 12.5 mg by mout h every twelve hours Metoprolol Tartrate Active 12.5 MG PO Q12H May 01, 2023 12:00am Comment on above: 0.5 tablets two time s a day. pantoprazole 20 mg delayed release oral tablet (3 sources) Proton Pump Inhibitor Start: 05-01-19 End: 09-16-19 take 1 tablet by mouth once daily Pantoprazole 20 mg tablet,delayed release (DR/EC) Discontinued 20 mg PO DAILY May 01, 2023 1:00am September 16, 2023 2:55pm sertraline 25 mg oral tablet (2 sources) Serotonin Reuptake Inhibitor Start: 03-16-20 End: 09-28-19 take 3 tablets by mouth once daily Sertraline 25 mg tablet Discontinued 75 mg PO daily March 16, 2024 1:00am September 27, 2024 11:20am traZODone hydrochloride 50 mg oral tablet (6 sources) Serotonin Reuptake Inhibitor Start: 02-26-20 End: 09-16-19 take 1 tablet by mouth at bedtime as needed for sleep Trazodone 50 mg tablet Discontinued 50 mg PO AT BEDTIME as needed for sleep February 25, 2022 1:00am September 16, 2023 3:39pm 1 ml triamcinolone acetonide 40 mg/ml injection (2 sources) Corticosteroid Start: 10-02-19 End: 10-02-19 triamcinolone acetonide 80 mg injection (KeNALog 40) Vibegron (5 sources) Start: 04-25-19 End: 07-11-19 take 1 tablet by mouth once daily Vibegron (Gemtesa) 75 mg tablet Discontinued 75 mg PO DAILY April 25, 2022 1:00am July 10, 2022 7:55pm Start: 04-25-2022 End: 07-10-2022 take 1 tablet by mouth once daily Vibegron (Gemtesa) 75 mg tablet Discontinued 75 mg PO DAILY April 25, 2022 12:00am July 10, 2022 6:55pm Start: 04-25-2022 End: 07-10-2022 take 1 tablet by mouth once daily Vibegron (Gemtesa) 75 mg tablet Discontinued 75 MG PO DAILY April 25, 2022 12:00am July 10, 2022 6:55pm Start: 04-25-2022 End: 03-30-2023 take 1 tablet by mouth once daily Vibegron (Gemtesa) 75 mg tablet Discontinued 75 MG PO DAILY April 25, 2022 1:00am July 10, 2022 7:55pm Vitamin B Complex tablet (2 sources) Start: 09-16-2023 End: 03-16-2024 Vitamin B Complex tablet Dis continued 1 {tbl} PO DAILY September 16, 2023 12:00am March 16, 2024 10:32am Start: 09-16-2023 End: 03-16-2024 Vitamin B Complex tablet Dis continued 1 {tbl} PO DAILY September 15, 2023 11:00pm March 16, 2024 9:32am Problems Active Problems Problem Classification Problem Date Documented Da te Episodic/Chronic Acute myocardial infarction (20 sources) Myocardial infarction; Translations: [Acute myocardial infarction, unspecified] Onset: 10-09-2022 10-09-2022 Chronic Comment on above: 2021 cardiogenic syed ck and arrest x3 and diagnosed with RCA thrombotic occlusion which was successfully revascularized. EF has normalized Post PCI functional capacity has returned to normal Ekg reveals residual T wave inversion from recent MT Coronary atherosclerosis and other heart disease (20 sources) Coronary arteriosclerosis; Translations: [Atherosclerotic heart disease of [place] coronary artery without angina pectoris] Onset: 07-31-2022 10-09-2022 Chronic Disorders of lipid metabolism (20 sources) Hyperlipidemia; Translations: [Hyperlipidemia, unspecified] Onset: 07-31-2022 10-09-2022 Chronic E Codes: Fall (20 sources) Fall; Translations: [Unspecified fall, initial encounter] Onset: 08-27-2023 02-01-2023 Episodic Essential hypertension (20 sources) Essential hypertension; Translations: [Essential (primary) hypertension] Onset: 07-31-2022 10-09-2022 Chronic Fracture of neck of femur (hip) (20 sources) Closed fracture of hip; Translations: [Fracture of unspecified part of neck of unspecified femur, initial encounter for closed fracture] Onset: 02-06-2023 02-01-2023 Episodic Genitourinary symptoms and ill-defined conditions (20 sources) Urgent desire to urinate; Translations: [Urgency of urination] Onset: 10-09-2022 10-09-2022 Episodic Gout and other crystal arthropathies (20 sources) Gout; Translations: [Gout, unspecified] Onset: 03-31-2022 10-09-2022 Chronic Heart valve disorders (20 sources) Tricuspid incompetence, non-rheumatic ; Translations: [Nonrheumatic tricuspid (valve) insufficiency] Onset: 07-31-2022 10-09-2022 Chronic Comment on above: Mild per ECHO [facility] Intracranial injury (17 sources) Concussion injury of body structure; Translations: [Concussion] Onset: 08-27-2023 05-01-2023 Episodic Malaise and fatigue (2 sources) Fatigue; Translations: [Other fatigue] 09-16-2023 Episodic Mood disorders (1 source) Depressive disorder; Translations: [Depression, unspecified depression type] Chronic Other circulatory disease (4 sources) Orthostatic hypotension; Translations: [Orthostatic hypotension] 01-20-2023 Episodic Other connective tissue disease (20 sources) Fibromyalgia; Translations: [Fibromyalgia] Onset: 10-09-2022 10-09-2022 Episodic Other connective tissue disease (1 source) Pain in left arm; Translations: [Pain in left arm] 07-06-2023 Episodic Other diseases of bladder and urethra (20 sources) Spasm of bladder; Translations: [Other specified disorders of bladder] Onset: 10-09-2022 10-09-2022 Chronic Other gastrointestinal disorders (5 sources) Dysphagia; Translations: [Dysphagia, unspecified] 07-06-2023 Episodic Other injuries and conditions due to external causes (19 sources) Closed injury of head; Translations: [Unspecified injury of head, initial encounter] Onset: 08-27-2023 02-01-2023 Episodic Other injuries and conditions due to external causes (2 sources) Unspecified injury of head, initial encounter; Translations: [Head injury, unspecified] 02-01-2023 Episodic Other nervous system disorders (1 source) Other chronic pain; Translations: [Chronic left shoulder pain] Onset: 09-29-2023 Chronic Other nervous system disorders (19 sources) H/O: brain disorder; Translations: [Personal history of other diseases of the nervous system and sense organs] Onset: 08-27-2023 02-01-2023 Episodic Other nervous system disorders (3 sources) Personal history of other diseases of the nervous system and sense organs; Translations: [Personal history of other disorders of nervous system and sense organs] 02-01-2023 Episodic Other nervous system disorders (1 source) Paresthesia of upper limb; Translations: [Anesthesia of skin] 07-06-2023 Episodic Other nervous system disorders (3 sources) Paresthesia of foot ; Translations: [Anesthesia of skin] 06-28-2024 Episodic Other nervous system disorders (1 source) Paresthesia of hand 06-28-2024 Episodic Other nervous system disorders (1 source) Anesthesia of skin; Translations: [Numbness and tingling of both feet] Onset: 07-29-2024 Episodic Other nervous system disorders (1 source) Paresthesia of skin; Translations: [Numbness and tingling of both feet] Onset: 07-29-2024 Episodic Other non-traumatic joint disorders (1 source) Pain in elbow; Translations: [Pain in left elbow] 08-27-2023 Episodic Other non-traumatic joint disorders (2 sources) Chronic pain of left upper limb; Translations: [Pain in left shoulder] 09-14-2023 Episodic Other non-traumatic joint disorders (2 sources) Hip pain; Translations: [Pain in left hip] 09-25-2023 Episodic Other screening for suspected conditions (not mental disorders or infectious disease) (2 sources) Inconclusive mammogram; Translations: [Encounter for screening mammogram for malignant neoplasm of breast] Onset: 08-13-2023 Episodic Other skin disorders (20 sources) Sebaceous cyst of skin; Translations: [Sebaceous cyst] Onset: 10-09-2022 10-09-2022 Episodic Parkinson`s disease (20 sources) Parkinson's disease; Translations: [Parkinson's disease] Onset: 07-31-2022 Chronic Parkinson`s disease (1 source) Parkinson`s disease; Translations: [Parkinson's disease without dyskinesia or fluctuating manifestations (HCC)] Onset: 10-09-2022 Poisoning by nonmedicinal substances (20 sources) [place] of skin; Translations: [Toxic effect of other metals, accidental (unintentional), initial encounter] Onset: 10-09-2022 10-09-2022 Chronic Poisoning by nonmedicinal substances (1 source) [place]gyria of skin; Translations: [Toxic effect of other metals, accidental (unintentional), sequela] Episodic Residual codes; unclassified (20 sources) Edema of lower extremity; Translations: [Localized edema] Onset: 08-27-2023 05-09-2022 Episodic Residual codes; unclassified (3 sources) Hallucinations; Translations: [Hallucinations, unspecified] 01-20-2023 Episodic Residual codes; unclassified (1 source) Insomnia; Translations: [Insomnia, unspecified] 01-20-2023 Episodic Residual codes; unclassified (1 source) Asymptomatic menopausal state; Translations: [Asymptomatic menopausal state] Onset: 08-13-2023 Episodic Spondylosis; intervertebral disc disorders; other back problems (3 sources) Prolapsed cervical intervertebral disc; Translations: [Other cervical disc displacement, unspecified cervical region] Onset: 08-27-2023 08-03-2023 Chronic Past or Other Problems Problem Classification Problem Date Documented Da te Episodic/Chronic Biliary tract disease (1 source) Other specified diseases of gallbladder; Translations: [Other specified diseases of gallbladder] Onset: 06-17-2024 Episodic Coronary atherosclerosis and other heart disease (19 sources) Stented coronary artery; Translations: [Presence of coronary angioplasty implant and graft] Onset: 12-12-2021 07-25-2022 Episodic Comment on above: PTCA/FLOYD Mid-distal RCA-PCI/FLOYD [id number] @ [facility] 12/22/21; Prox/distal RCA 2.5x30mm and 2.5x12mm @ [facility], [place] 12/20/09 Other circulatory disease (1 source) Orthostatic hypotension; Translations: [Orthostatic hypotension] Onset: 09-29-2023 Episodic Other gastrointestinal disorders (1 source) Dysphagia, unspecified; Translations: [Dysphagia, unspecified type] Onset: 09-29-2023 Episodic Other non-traumatic joint disorders (4 sources) Pain in left shoulder; Translations: [Pain in joint, shoulder region] Onset: 09-29-2023 08-27-2023 Episodic Other non-traumatic joint disorders (1 source) Pain in left elbow; Translations: [Pain in left elbow] Onset: 10-02-2023 Episodic Residual codes; unclassified (1 source) Hallucinations, unspecified; Translations: [Hallucinations] Onset: 09-29-2023 Episodic Results Test Name Value Interpretation Reference Range Facility Cardiology Visit Reporton Cardiology Visit Report [facility] [address] [place] [address] OFFICE VISIT Date of Service: 09/27/24 MR#: [id number] Acct: [id number] Name: MONISHA COHN Rep #: [id number] : 1940 Provider: Dr. Danielle Vernon MD Age/Sex: 84/F Location: [facility] [place] Status: Signed HPI HPI History of Present Illness Details: This pleasant lady with history of coronary artery disease, hypertension, Parkinson's disease and dyslipidemia is here for follow-up visit. Denies any chest pains or shortness of breath. No palpitations. No orthopnea or PND. Occasional ankle edema. Intake Vital Signs 03/16/24 08:37 09/27/24 08:22 Height 5 ft 2 in 5 ft 2 in Weight: 157 lb 161 lb BMI 28.7 29.4 BP 97/62 125/72 H Blood Pressure Location Lt brachial Lt brachial Position Sitting Sitting Respiration 18 16 Pulse 59 L 72 Pulse Source NIBP NIBP Intake Visit Reasons: 6 M FU Monologist Required: No Accompanied by: Is patient in pain?: No Allergies oxycodone (From Percocet) Allergy (Severe, Verified 09/27/24 11:17) Hives Medications ???Medication ???Instructions ???Recorded ???Confirmed ???Type aspirin 81 mg tablet,delayed 81 mg PO DAILY 02/25/22 09/27/24 H istory release (Adult Aspirin Regimen) acetaminophen 325 mg capsule 650 mg PO Q6H PRN fever or pain 09/27/24 History atorvastatin 40 mg tablet 40 mg PO QHS 05/01/23 09/27/24 His tory polyethylene glycol 3350 17 17 g PO DAILY 05/01/23 09/27/24 Hi story gram/dose oral powder (ClearLax) psyllium husk 3.4 gram/5.4 gram 1 tbsp PO DAILY 05/01/23 09/27/24 History oral powder (Stacie-Mucil) senna-docusate sodium capsule 1 cap PO BID 05/01/23 09/27/24 His tory cholecalciferol (vitamin D3) 25 25 mcg PO DAILY 09/16/23 09/27/24 History mcg (1,000 unit) capsule amlodipine 10 mg tablet 10 mg PO QDAY 03/16/24 09/27/24 Hi story hydroxyzine HCl 25 mg tablet 25 mg PO BID PRN 03/16/24 09/27/24 History hydroxyzine HCl 25 mg tablet 25 mg PO QHS 03/16/24 09/27/24 His tory nitrofurantoin macrocrystal 100 mg 100 mg PO QHS 03/16/24 09/27/24 History capsule alendronate 70 mg tablet 70 mg PO QWEEK 09/27/24 09/27/24 H istory carbidopa 25 mg-levodopa 100 mg tab PO 09/27/24 09/27/24 History tablet celecoxib 200 mg capsule 200 mg PO QDAY 09/27/24 09/27/24 H istory duloxetine 20 mg capsule,delayed 20 mg PO QDAY 09/27/24 09/27/24 Hi story release mirabegron 25 mg tablet,extended 25 mg PO QDAY 09/27/24 09/27/24 Hi story release 24 hr (Myrbetriq) tramadol 50 mg tablet 50 mg PO TID PRN 09/27/24 09/27/24 History Ejection fraction %: 55 Have you fallen in the past year?: Yes (no major injuries; 2) [facility] Medical History Atherosclerotic heart disease of [place] coronary artery without angina pectoris Bladder spasms CAD (coronary artery disease) Cardiogenic shock CHI (closed head injury) Depression Edema, lower extremity Emphysema with chronic bronchitis Essential (primary) hypertension Fall Fibromyalgia Former tobacco use Gout Hyperlipidemia Hypertension Myocardial infarction Non-rheumatic mitral regurgitation Non-rheumatic tricuspid valve insufficiency Parkinsons disease Presence of stent in coronary artery ( 12/22/21) Pulmonary hypertension ST elevation myocardial infarction (STEMI) of inferior wall ( 12/22/21) Urgency of urination Surgical History History of ankle surgery History of hysterectomy Presence of coronary angioplasty implant and graft S/P appendectomy Family History Father Heart disease Social History household members: friend(s) Smoking Status: Former smoker pack-years: 30 Tobacco: How many years used: 30 how long ago did patient quit smoking: Quit 20+ years prior. alcohol intake: current alcohol intake frequency: holidays/special occasions only substance use type: does not use caffeine: Yes Type: coffee Number of servings: 2 ROS Const Const: Negative for fatigue, weakness, headache(s) or weight gain ENT ENT: Negative for headache(s), dizziness, Nosebleed/epistaxis or balance problems Cardio Chest Pain: No Palpitations: No Edema: None Muscle aches with walking: None Resp Respiratory: Negative for SOB with activity, SOB at rest or SOB orthopnea SOB lying down GI GI: Negative nausea, vomiting or heartburn Musc Musc: Negative for muscle aches/ myalgia, muscle weakness, joint pain or balance problems Neuro Neuro: Negative for dizziness, lightheadedness, near syncope, syncope, headache(s) or weakness Endo Endo: Negative for fatigue (more content not included)... Normal [facility] 07-29-2024 [facility] Office Visit (NMMBHT ) MONISHA COHN ([id number]) 1940 F Date Time Provider Department 07/29/24 3:00 PM ARMEN MDAISON [facility] During your visit today, we recorded the following information about you: Pulse Blood pressure 68/minute 110/65 Armen Madison MD 07/29/2024 3:33 PM Signed [facility] New Patient Visit Note Consultation requested by Em Flynn APRN.CNP for an opinion regarding neuropathy. My final recommendations will be communicated back to the requesting physician by way of shared Medical record or letter to requesting physician via US mail. HPI: Ms. Monisha Cohn is a 84 year old female referred for neuropathy. The patient has a past medical history of Parkinson's disease c/b orthostatic hypotension. Has been having issues with numbness in her hands/feet, starting about 2 months ago. Extend up to the PIP in fingers and mid-foot. Overall feels a numbness in hands and feet, a little pain in the feet, feels like she's walking on scrunched up paper. Having difficulty using hands to pick-up items due to the numbness in the hands. Uses a walker and wheelchair for her gait, since she broke her hip in 2022. Does feel like numbness is affecting her gait, less balance. Diagnosed with PD about 4 years ago, issues with voice and tremor in her legs. Has been on Sinemet since then. Family history: Denies family history of neuropathy, myopathy and/or neurodegenerative disease Physical Exam BP 110/65 (BP Site: Right Arm, BP Position: Sitting, BP Cuff Size: Regular Adult) Pulse 68 LMP (LMP Unknown) GENERAL Well nourished, well hydrated, no acute distress. MENTAL STATUS EXAM Orientation: Alert and oriented to person, place and time. Memory: Cooperative, follows commands well. Recent and remote memory normal. Attention, concentration: Attention span and concentration are normal. Language: Speech is clear and language is normal. Fund of knowledge: Aware of current events, vocabulary appropriate for patient age. CRANIAL NERVES CNII: Visual acuity normal. Visual garibay full to confrontation CNIII, IV, : Pupils equal, round and reactive to light. Full extraoccular movements without nystagmus CN V: Facial sensation intact bilaterally to fine touch CN VII: Frontalis, orbicularis oculi, buccinator, orbicularis ofelia strength intact. Symmetric smile CN VIII: Hears finger rub well bilaterally CN IX: Gag Reflex Not examined CN X: Palate elevates symmetrically CN XI: Full strength shoulder shrug bilaterally CN XII: Tongue protrusion full and midline. No atrophy or fasciculations. Tongue movements are normal Speech is normal MOTOR Strength/Power (MRC grade- out of 5): Neck Flexion: 5/5 Neck Extension: 5/5 Upper extremity power, when graded out of 5, revealed: Right Left shoulder abduction 5/5 5/5 shoulder external rotation 5/5 5/5 elbow flexion 5/5 5/5 elbow extension 5/5 5/5 wrist extension 5/5 5/5 finger extension 5-/5 5-/5 deep finger flexion (D2-3) 5/5 5/5 thumb flexion with FPL 5/5 5/5 finger abduction 4+/5 4+/5 Lower extremity strength, when reported the same way, showed: Right Left hip flexion 5/5 5/5 knee extension 5/5 5/5 knee flexion 5/5 5/5 ankle dorsiflexion 5/5 5/5 ankle plantar flexion 5/5 5/5 Muscle: Tone is normal. There is no muscle atrophy or fasciculations. REFLEXES Right Left Bicep 2/4 2/4 Tricep 2/4 2/4 BrRad 2/4 2/4 Knee 2/4 2/4 Ankle 0/4 0/4 PATHOLOGIC REFLEXES: Babinski: bilaterally Downward response COORDINATION Finger-to- nose-finger intact bilaterally. No tremor. SENSATION Light touch: intact Proprioception: intact at great toes Vibration: inconsistent, appears to be a reduction in distal gradient Pinprick: intact GAIT Not assesses Diagnostic Studies: Serum labs: n/a Assessment: Monisha oChn is a 84 year old woman with a history of Parkinson's disease referred for further evaluation of paraesthesias in the hands and feet. Exam with evidence of distal large fiber dysfunction, which can be attributable to aging. Presentation and symptoms likely secondary to a mild peripheral polyneuropathy. Increased rate of PN in Parkinson's patients, possibly related to Sinemet use and B12 deficiency. Will perform screening labs for potential etiologies. Recommend symptomatic management and physical/occupational therapy. Plan: - Serum workup: Labs for neuropathy - Diagnostic workup: Defer EMG - Referral: PT/OT at nursing facility - No follow-ups on file. Follow-up as needed The impression above as well as the plan as outlined below were extensively discussed with the patient who voiced understanding. All questions were answered to their stated satisfaction. When available, results of the above investigations and possible further r (more content not included)... Normal [facility] Folate SerPl-mCncon 07-30-19 25 Folate [Mass/Vol] 6.2 ng/mL Normal >4.7 [facility] [place] Comment on above: Order Comment: Speci men Type: BLOOD SPECIMENOrdering Facility: [facility] Address: [address] [place] [address] [place] [address] Performed By: #### 2 284-8, 2132-9 ####[facility]CL[facility] [id number] [address] [address] [place] HbA1c (Bld)on 07-29-2024 Average glucose Estimated from glycated hemoglobin (Bld) [Mass/Vol] 100 mg/dL Normal [facility] Comment on above: Order Comment: Nathani roberta Type: BLOOD SPECIMENOrdering Facility: [facility] Address: [address] [place] [address] Result Comment: eAG: (Estimated average glucose) is a calculated value from HgbA1c and is guest relations representative of the average blood glucose level in the last 2-3 month period. Performed By: #### 5 5454-3 ####[facility] [id number] [address] [place] [facility] HbA1c (Bld) [Mass fraction] 5.1 % Normal 4.3-5.6 [facility] Comment on above: Order Comment: Liza granados Type: BLOOD SPECIMENOrdering Facility: [facility] Address: [address] [place] [address] Result Comment: Amer ican Diabetes Association guidelines indicate that patients with HgbA1c in the range 5.7-6.4% are at increased risk for development of diabetes, and intervention by lifestyle modification may be beneficial. HgbA1c greater or equal to 6.5% is considered diagnostic of diabetes. Performed By: #### 5 5454-3 ####[facility] [id number] [place] [id number] [facility] [place] IMMUNOFIXATION SCREEN, SERUM on 07-29-2024 INTERPRETATION (MPA) Atypical restricted bands are present in the IgG and lambda regions. Consistent with IgG lambda monoclonal gammopathy. Normal [facility] Comment on above: Order Comment: Nathani roberta Type: BLOOD SPECIMENOrdering Facility: [facility] Address: [address] [place] [address] Performed By: #### I [facility] ####[facility] [id number] [place] [id number] [place] MPA RESULT M protein is present. Abnormal No M p rotein is identified. [facility] Comment on above: Order Comment: Speci men Type: BLOOD SPECIMENOrdering Facility: [facility] Address: [address] [place] [address] Performed By: #### I FES ####[facility] [id number] [address] [facility] [place] ([facility]) Reviewed by Beatriz Estes M.D., Ph.D Normal [facility] Comment on above: Order Comment: Speci men Type: BLOOD SPECIMENOrdering Facility: [facility] Address: [address] [place] [address] Performed By: #### I FES ####[facility] [id number] [address] [place] KAPPA/ZIMMERMAN,FREE,SERon 2024 Immunoglobulin light chains.kappa.free (S) [Mass/Vol] 20.0 mg/L High 3.3-19.4 [facility] Comment on above: Order Comment: Speci men Type: BLOOD SPECIMENOrdering Facility: [facility] Address: [address] [place] [address] Result Comment: Rare ly, increased serum free light chains levels may not be detected or accurately quantified due to prozone phenomenon or in high viscosity samples using this immunoturbidimetric assay. Correlation with other laboratory results and clinical findings is recommended. The [place] Free Light Chain was performed using the Binding Site Optilite immunoturbidimetric method. Result obtained with different assay methods or kits cannot be used interchangeably. Performed By: #### K LFRS ####[facility] [id number] [address] Immunoglobulin light chains.kappa/Immunoglo bulin light chains.lambda (S) [Mass ratio] 0.16 Low 0.26-1.65 [facility] Comment on above: Order Comment: Speci men Type: BLOOD SPECIMENOrdering Facility: [facility] Address: [address] [place] [address] Performed By: #### K LFRS ####[facility]CL[facility] [id number] [place] [address] [place] Immunoglobulin light chains.lambda.free [Mass/Vol] 121.8 mg/L High 5.7-26.3 [facility] Comment on above: Order Comment: Speci men Type: BLOOD SPECIMENOrdering Facility: [facility] Address: [address] [place] [address] Result Comment: Rare ly, increased serum free light chains levels may not be detected or accurately quantified due to prozone phenomenon or in high viscosity samples using this immunoturbidimetric assay. Correlation with other laboratory results and clinical findings is recommended. The Lambda Free Light Chain was performed using the Binding Site Optilite immunoturbidimetric method. Result obtained with different assay methods or kits cannot be used interchangeably. Performed By: #### K LFRS ####[facility] [id number] [place] [address] [place] Methylmalonate SerPl-sCncon 07-29-2024 Methylmalonate [Moles/Vol] 0.18 umol/L Normal <=0.40 [facility] Comment on above: Order Comment: Liza granados Type: BLOOD SPECIMENOrdering Facility: [facility] Address: [address] [place] [address] Result Comment: This test was developed, and its performance characteristics determined by the [facility] Department of Pathology and Laboratory Medicine. It has not been cleared or approved by the FDA. The [facility] Department of Pathology and Laboratory Medicine is regulated under CLIA as qualified to perform high-complexity testing. This test is used for clinical purposes. It should not be regarded as investigational or for research. Performed By: #### 1 3964-2 ####[facility] [id number] [place] [address] [place] VITAMIN B1 (THIAMINE), WHOLE BLOODon 07-29-2024 Thiamine (Bld) [Moles/Vol] 118.7 nmol/L Normal 84.3-213.3 [facility] Comment on above: Order Comment: Liza granados Type: BLOOD SPECIMENOrdering Facility: [facility] Address: [address] [place] [address] Result Comment: This assay measures the concentration of thiamine diphosphate (TDP), the primary active form of vitamin B1. Approximately 90 percent of vitamin B1 present in whole blood is TDP. Thiamine and thiamine monophosphate, which comprise the remaining 10 percent, are not measured. This test was developed, and its performance characteristics determined by the [facility] Department of Pathology and Laboratory Medicine. It has not been cleared or approved by the FDA. The [facility] Department of Pathology and Laboratory Medicine is regulated under CLIA as qualified to perform high-complexity testing. This test is used for clinical purposes. It should not be regarded as investigational or for research. Performed By: #### B 1WB ####[facility] [id number] [place] [address] [place] Vit [facility]12 [facility] Cobalamin (Vitamin B12) [Mass/Vol] 876 pg/mL Normal 232-1245 [facility] Comment on above: Order Comment: Liza granados Type: BLOOD SPECIMENOrdering Facility: [facility] Address: [address] [place], [place] [address] [address] Performed By: #### 2 284-8, 2132-9 ####[facility] [id number] [place] [address] [place] CNOVon 06-28-2024 CNOV Office Visit (NRMDN) MONISHA COHN ([id number]) 1940 F Date Time Provider Department 06/28/24 8:00 AM EM FLYNN During your visit today, we recorded the following information about you: Pulse Blood pressure Weight Height 76/minute 112/74 70.5 kg 1.575 m Em Flynn APRN.CNP 06/28/2024 11:22 PM Signed [facility] - FOLLOW UP EVALUATION The patient consented to the use of ambient AI software for draft documentation of the visit consistent with [facility]?s Notice of Privacy Practices. Alexandra Arreguin APRN.CEMENT[employer] [address] [address] Dear Alexandra Arreguin APRN.CNP: I had the pleasure of seeing Ms. Cohn for follow-up today. As you know she is a 84 year old right-handed female with a history of Parkinson's disease since 2019. Subjective Previous Plan- 12/31/2023 Visit: Parkinson's disease: Continue on current Sinemet schedule Please make sure the iron is separate from the Sinemet by 2 hours as it interferes with the absorption of Sinemet and will make it not work well if at all. All Parkinson's disease medications should be taken within 15 or 30 minutes at the very latest so that they will work correctly as not getting them on time will put her at risk for falls Orthostatic hypotension (drops in blood pressure): Systolic blood pressure dropped 28 points today and the diastolic blood pressure dropped 14 points Please make sure you are changing positions slowly and drinking plenty of water. I will ask the nurses to measure your blood pressure sitting and standing for one week at approximately the same time every day If it continues to drop (top number 20 points or more or bottom number 10 points or more) please discuss with the prescriber of your blood pressure medication to see if any adjustments can be made Date/Time BP Sitting Heart Rate Sitting BP Standing Heart Rate Standing Dysphagia (difficulty swallowing): I am ordering speech therapy for them to assess this as well as work with you on your quiet voice At your convenience, please provide us with a copy of your advanced directives (living will and durable power of research attorney for healthcare): By Email: Send your document(s) to [email or web address] as an attachment in either PDF, TIFF, or JPEG format. By Mail: [facility] Information Management, [employer] Advance Directive Processing [address] [place], [place] [address] By In person at any [facility] location Please note: You can use the address or fax number regardless of which [facility] you utilize, and we will make sure it is filed appropriately. Interval History: Monisha attended today with a caregiver from her facility. Monisha reports significant fatigue, which she associates with delayed administration of her Parkinson's medication, carbidopa-levodopa. She is supposed to receive her first dose of medication at 8:00 AM but notes that it is often administered late, sometimes as late as 10:30 AM. She reports that the delay in medication leads to increased fatigue, irritability, tremors, and difficulty walking. She mentions that when her medication is delayed, she does not trust herself to walk and opts to use a wheelchair instead. She has reported these issues to the nursing staff but has not seen any improvement. She describes a tremor that begins in her left hand and progresses to her right hand if her medication is delayed for an extended period. She also experiences dyskinesia occasionally, which she can control by trying to relax and sit still. She uses a walker for ambulation and reports a fall a few months ago due to slipping on urine. She experiences freezing of gait occasionally, both while walking and when in a wheelchair and trying to use her feet to propel herself. She continues to experience lightheadedness upon standing, which resolves after standing for a minute, despite adjustments to her blood pressure medication. She reports urinary urgency, which she describes as an old issue, and constipation, which is managed with Milk of Magnesia. She experiences lower abdominal pain, for which she has undergone testing, but a definitive diagnosis has not been made. She also reports numbness and tingling in her feet and fingertips, describing a sensation of having paper under her feet when in bed. She also experiences occasional jerking of her legs at night. She notes that her speech has become quieter and she reports difficulty swallowing, particularly with thicker foods like mashed potatoes. She has not had speech therapy recently but expresses interest in restarting it. She also expresses interest in resuming physical and occupational therapy. She reports good sleep at night and takes naps during the day only occasionally, as she find (more content not included)... Normal [facility] Hepatobilliary Img w/Pharm I nton 06-03-2024 Hepatobilliary Img w/Pharm Int [facility] [address] [place] [address] Hepatobilliary Img w/Pharm Int MR#: [id number] Acct: [id number] Name: MONISHA COHN Rep #: [id number] : 1940 F 84 From: Hong byrne MD PCP: Tressa Rosales Status: REG CLI Study: Hepatobilliary Img w/Pharm Int Date of Exam: 0 06/03/24 Exam# [id number] Ordering Dr: Didi Lujan NP N P-C PROCEDURE: HEPATOBILLIARY IMG W/PHARM INT REASON FOR EXAM: Right upper quadrant pain and nausea. TECHNIQUE: Intravenous Choletec with planar imaging of the abdomen. 1.4 mcg Kinevac intravenously approximately 15 minutes after the radiopharmaceutical with additional anterior imaging and a region of interest drawn around the gallbladder to calculate a time-activity curve. RADIOPHARMACEUTICAL: 5 mCi of technetium labeled mebrofenin COMPARISON: None. FINDINGS: There is good uptake of the radiopharmaceutical by the liver. Normal gallbladder visualization with the gallbladder identified by 30 minutes. Gallbladder Ejection Fraction: 97 % (Normal is >35%) NM/Hepatobilliary Img w/Pharm Int IMPRESSION: NORMAL HIDA SCAN AND GALLBLADDER EJECTION FRACTION. Reading Location: [place] [address] CC: Didi VAZQUEZ NP-Mariajose Rosales Document Scanner: Signed Normal [facility] Cardiology Visit Reporton Cardiology Visit Report [facility] [address] [place], [place] [address] OFFICE VISIT Date of Service: 03/16/24 MR#: [id number] Acct: [id number] Name: MONISHA COHN Rep #: [id number] : 1940 Provider: Dr. Danielle Vernon MD Age/Sex: 83/F Location: [facility] Status: Signed HPI HPI History of Present Illness Details: This pleasant lady with history of coronary artery disease status post drug-eluting stent to the LAD is here for follow-up visit. Denies any complaints. No chest pains. No shortness of breath. No palpitations. No orthopnea or PND. Occasional ankle edema. Occasionally feels lightheaded. Intake Vital Signs 09/16/23 14:46 03/16/24 08:37 Height 5 ft 2 in 5 ft 2 in Weight: 157 lb BMI 28.7 BP 97/62 Blood Pressure Location Lt brachial Position Sitting Respiration 18 Pulse 59 L Pulse Source NIBP Intake Visit Reasons: 6 M FU Monologist Required: No Accompanied by: Is patient in pain?: Yes (Left hip s/p Fx; unchanged) Allergies oxycodone (From Percocet) Allergy (Severe, Verified 03/16/24 09:23) Hives Medications ???Medication ???Instructions ???Recorded ???Confirmed ???Type aspirin 81 mg tablet,delayed 81 mg PO DAILY 02/25/22 03/16/24 History release (Adult Aspirin Regimen) acetaminophen 325 mg capsule 650 mg PO Q6H PRN fever or pain 05/01/23 03/16/24 History atorvastatin 40 mg tablet 40 mg PO QHS 05/01/23 03/16/24 History metoprolol tartrate 25 mg tablet 12.5 mg PO Q12H 05/01/23 03/16/24 History polyethylene glycol 3350 17 17 g PO DAILY 05/01/23 03/16/24 History gram/dose oral powder (ClearLax) psyllium husk 3.4 gram/5.4 gram 1 tbsp PO DAILY 05/01/23 03/16/24 History oral powder (Stacei-Mucil) senna-docusate sodium capsule 1 cap PO BID 05/01/23 03/16/24 History cholecalciferol (vitamin D3) 25 25 mcg PO DAILY 09/16/23 03/16/24 History mcg (1,000 unit) capsule amlodipine 10 mg tablet 10 mg PO QDAY 03/16/24 03/16/24 History denosumab 60 mg/mL subcutaneous 60 mg subcut [id number] 03/16/24 03/16/24 History syringe hydroxyzine HCl 25 mg tablet 25 mg PO BID PRN 03/16/24 03/16/24 History hydroxyzine HCl 25 mg tablet 25 mg PO QHS 03/16/24 03/16/24 History meloxicam 15 mg tablet 15 mg PO QDAY 03/16/24 03/16/24 History nitrofurantoin macrocrystal 100 mg 100 mg PO QHS 03/16/24 03/16/24 History capsule sertraline 25 mg tablet 75 mg PO QDAY 03/16/24 03/16/24 History Ejection fraction %: 55 Have you fallen in the past year?: Yes (Hip Fx) [facility] Medical History Atherosclerotic heart disease of [place] coronary artery without angina pectoris Bladder spasms CAD (coronary artery disease) Cardiogenic shock CHI (closed head injury) Depression Edema, lower extremity Emphysema with chronic bronchitis Essential (primary) hypertension Fall Fibromyalgia Former tobacco use Gout Hyperlipidemia Hypertension Myocardial infarction Non-rheumatic mitral regurgitation Non-rheumatic tricuspid valve insufficiency Parkinsons disease Presence of stent in coronary artery ( 12/22/21) Pulmonary hypertension ST elevation myocardial infarction (STEMI) of inferior wall ( 12/22/21) Urgency of urination Surgical History History of ankle surgery History of hysterectomy Presence of coronary angioplasty implant and graft S/P appendectomy Family History Father Heart disease Social History household members: friend(s) Smoking Status: Former smoker pack-years: 30 Tobacco: How many years used: 30 how long ago did patient quit smoking: Quit 20+ years prior. alcohol intake: current alcohol intake frequency: holidays/special occasions only substance use type: does not use caffeine: Yes Type: coffee Number of servings: 2 ROS Const Const: Positive for fatigue and weakness; Negative for headache(s) or weight gain ENT ENT: Positive for balance problems (r/t Parkinsons per pt); Negative for headache(s), dizziness or Nosebleed/epistaxis Cardio Chest Pain: No Palpitations: No Edema: Bilateral (occasional) Muscle aches with walking: None Resp Respiratory: Negative for SOB with activity, SOB at rest or SOB orthopnea SOB lying down GI GI: Negative nausea, vomiting or heartburn Musc Musc: Positive for joint pain (left hip) and balance problems (r/t Parkinsons per pt); Negative for muscle aches/ myalgia or muscle weakness Neuro Neuro: Positive for weakness; Negative for dizziness, lightheadedness, near syncope, syncope or headache(s) Endo Endo: Positive for fatigue Cardiology Exam Const Appearance: comfortable, no acute distress and (more content not included)... Normal [facility] CNCOon 12-31-2023 CNCO Letter Text Normal [facility] CNOVon 12-31-2023 CNOV Office Visit (NRMDN) MONISHA COHN ([id number]) 1940 F Date Time Provider Department 12/31/23 9:00 AM EM FLYNN During your visit today, we recorded the following information about you: Height 1.575 m Em Flynn APRN.CNP 12/31/2023 8:30 PM Signed [facility] - FOLLOW UP EVALUATION Alexandra Arreguin APRN.CEMENTER MACHINE [address] [address] Dear Alexandra Arreguin APRN.CEMENTER MACHINE: I had the pleasure of seeing Ms. Cohn for follow-up today. As you know she is a 83 year old right-handed female with a history of Parkinson's disease since 2019. She is seen with a caregiver at her facility. Subjective Previous Plan-09/29/2023 Visit: Parkinson's disease: I have ordered physical therapy for you. You have been provided with a hand out on freezing of gait and a booklet on speech, swallowing, and drooling. Please do not hesitate to let me know if you have any questions about anything you read. Continue exercising Continue Sinemet as scheduled Orthostatic hypotension (drops in blood pressure): Stay well hydrated and change positions slowly. Dysphagia: Please let me know if you change your mind about a swallowing test Double vision: Please follow up with your feed mixer helper as scheduled Interested in clinical research? Not currently Interval History: Her main concern is dizziness and feeling like she cannot stay upright when she is walking. 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) Dyskinesia: yes Prior Anti-Parkinson Therapies Carbidopa/Levodopa Questionnaires: In addition, the following areas that may be affected by abnormal involuntary movements were evaluated: Daily activities Difficulties with eating: Difficulties in dressing: Difficulties with hygiene activities: Difficulties with handwriting: Difficulties with doing hobbies and other activities: Difficulties turning in bed: Difficulties getting out of bed, car or chair: Tremors/Gait/Balance Shaking or tremors: Once in a while especially when meds are late Walking and balance problems: She uses a walker and does this independently as well as with a PT Number of falls in the Last Month: She had one fall when she had been incontinent and slipped on the urine and fell. Gait freezing: Yes Autonomic/Pain Lightheadeness on standing: Yes Urinary problems: Yes-incontinence Constipation problems: No Pain and other sensations: She is seen by an immunology specialist for her hip. Speech/Swallowing Speech problems: Her voice is quieter. Drooling: This happens at night Chewing and swallowing problems: Sometimes Sleep/Fatigue Sleep problems: She has slept very well the last two nights but sometimes she does not sleep at all. Daytime sleepiness: She tries not to but sometimes she will fall asleep watching TV. Fatigue: Yes Mood/Behavior Depression: She said is not depressed. Anxiety: She is anxious sometimes about her condition. Finally, the following table shows the patient's overall global physical and mental health using the PROMIS scale: *PROMIS-10 scoring scale: mean = 50, over 50 is above average, under 50 is below average In addition, the following non-motor symptoms and palliative concerns were evaluated: Sleep/Fatigue: REM sleep behavior disorder: No Restless Legs Syndrome: Yes This does not happen all the time and she can usually kick it away. Leg swelling: Yes Impaired sense of smell: Yes Cognition: Cognitive impairment: no MoCA Cognitive assessment: Hallucinations and delusions: yes A few times a day she will see someone run past her and then she realizes they are not there. She is not bothered by it. Apathy: no Impulse control disorder: No Palliative Concerns: Caregiver burden: Spiritual concerns: No Advanced directives on file: No Not on file, but she has been provided with ways to do this Palliative services: Therapy and Exercise: Last PT Date: December 2023 Last OT Date: July [address] Date: Exercises Regularly: Yes She walks in the halls. ALLERGIES Allergen Reactions Percocet [Oxycodone* Rash, Itching Current Outpatient Medications Medication Sig celecoxib (CELEBREX) 200 mg capsule alendronate (FOSAMAX) 70 mg tablet Take 70 mg by mouth one time a week. In AM with cup of water on empty stomach. Nothing else by mouth and stay upright for 30 min. Ceramides 1,3,6-11 (CERAVE DAILY MOISTURIZING) lotn Apply to affected area. DULoxetine (CYMBALTA) 20 mg capsule 2 capsules (more content not included)... Normal [facility] CNCOon 11-20-2023 CNCO HNO ID: [id number] Author: COORDINATOR, MAMMOGRAPHY, ? Service: ? Author Type: Physician Type: Letter Filed: 11/20/2023 10:34 Note Text: November 20, 2023 PID: [id number] Monisha Cohn [address] [place] [address] Dear Ms. Cohn, We are pleased to inform you that the results of your recent breast imaging exam on 11/20/2023 are normal. Early detection of cancer is very important. We also understand recommendations regarding breast cancer screening are controversial. Please discuss with your primary care provider which strategy is best for you and whether a mammogram is right for you. Your imaging studies and report will be kept on file at [facility] as part of your permanent medical record and are available for your continuing care. Thank you for allowing us to help in meeting your health care needs. Sincerely, Dr. Mccormick Interpreting Radiologist [facility] (Normal over 40) Normal [facility] CNCO HNO ID: [id number] Author: COORDINATOR, MAMMOGRAPHY, ? Service: ? Author Type: Physician Type: Letter Filed: 11/20/2023 10:34 Note Text: November 20, 2023 PID: [id number] Monisha Cohn [address] [place] [address] Dear Ms. Cohn, We are pleased to inform you that the results of your recent breast imaging exam on 11/20/2023 are normal. Early detection of cancer is very important. We also understand recommendations regarding breast cancer screening are controversial. Please discuss with your primary care provider which strategy is best for you and whether a mammogram is right for you. Your imaging studies and report will be kept on file at [facility] as part of your permanent medical record and are available for your continuing care. Thank you for allowing us to help in meeting your health care needs. Sincerely, Dr. Mccormick Interpreting Radiologist [facility] (Normal over 40) Normal [facility] US BREAST COMPLETE LTon 11-20-2023 [facility] US BREAST COMPLETE LT * * *Final Report* * * DATE OF EXAM: Nov 20 2023 9:09AM [facility] 0606 - [facility] US BREAST COMPLETE LT / PROCEDURE REASON: Inconclusive mammogram * * * * Physician Interpretation * * * * RESULT: #[id number] - [facility] US BREAST COMPLETE LT #[id number] - [facility] US BREAST COMPLETE RT COMPLETE ULTRASOUND OF RIGHT BREAST: 11/20/2023 HISTORY: Inconclusive Mammogram//ABUS Inconclusive Mammogram// ABUS. RESULT: Comparison is made to exams dated: 09/23/2023 mammogram, 09/23/2023 ultrasound, and 08/13/2023 mammogram - [facility]. Ultrasound of the right breast four quadrants and retroareolar regions was performed. 3D automated breast ultrasound (ABUS) device was used to perform an automated breast ultrasound with grayscale imaging. These images and multiplanar reconstructions were reviewed on a dedicated review software No suspicious solid or cystic masses identified in the breast. IMPRESSION: NEGATIVE No suspicious solid or cystic masses identified in the breast on the automated breast ultrasound. Automated breast ultrasound (ABUS) is a supplemental breast cancer screening test to be used in addition to screening mammography and does not replace annual screening mammography. There is no sonographic evidence of malignancy. COMPLETE ULTRASOUND OF LEFT BREAST: 11/20/2023 RESULT: Comparison is made to exams dated: 09/23/2023 mammogram, 09/23/2023 ultrasound, and 08/13/2023 mammogram - [facility]. Ultrasound of the left breast four quadrants and retroareolar regions was performed. 3D automated breast ultrasound (ABUS) device was used to perform an automated breast ultrasound with grayscale imaging. These images and multiplanar reconstructions were reviewed on a dedicated review software No suspicious solid or cystic masses identified in the breast. IMPRESSION: NEGATIVE No suspicious solid or cystic masses identified in the breast on the automated breast ultrasound. Automated breast ultrasound (ABUS) is a supplemental breast cancer screening test to be used in addition to screening mammography and does not replace annual screening mammography. There is no sonographic evidence of malignancy. Return to annual mammogram screening schedule is recommended. SUMMARY: Patient is due for annual bilateral screening mammography in August 2024. Sheree Mccormick M.D., lm/gi:11/20/2023 10:34:24 Multiple national specialty organizations have released breast cancer screening guidelines for women at average risk for developing breast cancer - guidelines that are based on both evidence and opinion, yet differ on when to start and how often to screen for breast cancer. With representation from Breast Imaging, Internal Medicine, Women's Health, Family Medicine, and Medical/Surgical Oncology, the [facility] has carefully reviewed the data and reached the following consensus: 1) All women should engage in shared decision-making with their providers to decide when to start and how often to screen; 2) All women should have the opportunity to start screening mammography at age 40; 3) For women ages 45-55, we recommend annual screening mammograms; 4) For women ages 55 and over, we support both the transition from an annual to a biennial interval if this aligns more with patient's values and preferences, or continuation with annual screening; 5) All women should discuss with their providers when to stop screening mammograms. Attending Technologist(s): RT Nba(R)(M), [facility] Recycle Worker(s): RT Glenna(R)(M), [facility] letter sent: Normal over 40 OVERALL STUDY BIRADS: Category 1: Negative Document Scanner: Gi Transcribe Date/Time: Nov 20 2023 8:36A Dictated by : SHEREE MCCORMICK MD This examination was interpreted and the report reviewed and electronically signed by: SHEREE MCCORMICK MD on Nov 20 2023 10:34AM EST [id number] Normal [facility] US BREAST COMPLETE RTon 11-20-2023 [facility] US BREAST COMPLETE RT * * *Final Report* * * DATE OF EXAM: Nov 20 2023 9:09AM [facility] 0605 - [facility] US BREAST COMPLETE RT / PROCEDURE REASON: Inconclusive mammogram * * * * Physician Interpretation * * * * RESULT: #[id number] - [facility] US BREAST COMPLETE LT #[id number] - [facility] US BREAST COMPLETE RT COMPLETE ULTRASOUND OF RIGHT BREAST: 11/20/2023 HISTORY: Inconclusive Mammogram//ABUS Inconclusive Mammogram// ABUS. RESULT: Comparison is made to exams dated: 09/23/2023 mammogram, 09/23/2023 ultrasound, and 08/13/[address] [facility]. Ultrasound of the right breast four quadrants and retroareolar regions was performed. 3D automated breast ultrasound (ABUS) device was used to perform an automated breast ultrasound with grayscale imaging. These images and multiplanar reconstructions were reviewed on a dedicated review software No suspicious solid or cystic masses identified in the breast. IMPRESSION: NEGATIVE No suspicious solid or cystic masses identified in the breast on the automated breast ultrasound. Automated breast ultrasound (ABUS) is a supplemental breast cancer screening test to be used in addition to screening mammography and does not replace annual screening mammography. There is no sonographic evidence of malignancy. COMPLETE ULTRASOUND OF LEFT BREAST: 11/20/2023 RESULT: Comparison is made to exams dated: 09/23/2023 mammogram, 09/23/2023 ultrasound, and 08/13/[address] [facility]. Ultrasound of the left breast four quadrants and retroareolar regions was performed. 3D automated breast ultrasound (ABUS) device was used to perform an automated breast ultrasound with grayscale imaging. These images and multiplanar reconstructions were reviewed on a dedicated review software No suspicious solid or cystic masses identified in the breast. IMPRESSION: NEGATIVE No suspicious solid or cystic masses identified in the breast on the automated breast ultrasound. Automated breast ultrasound (ABUS) is a supplemental breast cancer screening test to be used in addition to screening mammography and does not replace annual screening mammography. There is no sonographic evidence of malignancy. Return to annual mammogram screening schedule is recommended. SUMMARY: Patient is due for annual bilateral screening mammography in August 2024. Sheree Mccormick M.D., lm/gi:11/20/2023 10:34:24 Multiple national specialty organizations have released breast cancer screening guidelines for women at average risk for developing breast cancer - guidelines that are based on both evidence and opinion, yet differ on when to start and how often to screen for breast cancer. With representation from Breast Imaging, Internal Medicine, Women's Health, Family Medicine, and Medical/Surgical Oncology, the [facility] has carefully reviewed the data and reached the following consensus: 1) All women should engage in shared decision-making with their providers to decide when to start and how often to screen; 2) All women should have the opportunity to start screening mammography at age 40; 3) For women ages 45-55, we recommend annual screening mammograms; 4) For women ages 55 and over, we support both the transition from an annual to a biennial interval if this aligns more with patient's values and preferences, or continuation with annual screening; 5) All women should discuss with their providers when to stop screening mammograms. Attending Technologist(s): RT Nba(R)(M), [facility] Recycle Worker(s): RT Glenna(R)(M), [facility] letter sent: Normal over 40 OVERALL STUDY BIRADS: Category 1: Negative Document Scanner: Gi Transcribe Date/Time: Nov 20 2023 8:36A Dictated by : SHEREE MCCORMICK MD This examination was interpreted and the report reviewed and electronically signed by: SHEREE MCCORMICK MD on Nov 20 2023 10:34AM EST [id number] Normal [facility] Zachariah 10-21-2023 LUIS Telephone (SPWAED) MONISHA COHN ([id number]) 1940 F Date Time Provider Department 10/21/23 MARIE RAMIREZ During your visit today, we recorded the following information about you: Rosie Cruz RN 10/21/2023 10:08 AM Signed Received voicemail 10-20-23 at 12:28 PM. Hi this is Rissa at [facility]. Calling in regards to Monisha Cohn. 42. She got an order from the orthopedic to do therapy which they have started but they wanted to know what was torn and I believe Dr. Ramirez was the one who did the MRI, or read the MRI. If someone could fax us over the notes they would appreciate it. The fax number is [phone]. If you have any questions you can call me back at [phone]. Thank you." Last office visit note with Marie Ramirez PA-C AND imaging report faxed to [facility] PT department. 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 In AM with cup of water on empty stomach. Nothing else by mouth and stay upright for 30 min. - Ceramides 1,3,6-11 (CERAVE DAILY MOISTURIZING) lotn Apply to affected area. - DULoxetine (CYMBALTA) 20 mg capsule 2 capsules once daily. - ascorbic acid, vitamin C, (VITAMIN C) 500 mg tablet Take 1 tablet by mouth two times a day. - ferrous sulfate 325 mg (65 mg iron) tablet Take by mouth. - polyethylene glycol 3350 17 gram/dose powder Take by mouth. - senna-docusate (SENNA-S) 8.6-50 mg per tablet Take by mouth. - Acetaminophen 500 mg cap Take by mouth. - metoprolol tartrate, short acting, (LOPRESSOR) 25 mg tablet 0.5 tablets two times a day. - MYRBETRIQ 25 mg Tb24 1 tablet once daily. - traMADol (ULTRAM) 50 mg tablet - psyllium (KONSYL) packet Take by mouth. - cyanocobalamin (VITAMIN B-12) 500 mcg tablet Take 1 tablet by mouth once daily. - atorvastatin (LIPITOR) 40 mg tablet Take 1 tablet by mouth every afternoon. - losartan (COZAAR) 25 mg tablet Take 1 tablet by mouth every afternoon. - carbidopa-levodopa (SINEMET) 25-100 mg per tablet Take 2 tablet daily at 8AM, 2 tablet daily at 12PM, 2 tablet daily at 4PM, and 1.5 tablet daily at 8PM. - aspirin, enteric coated (ASPIRIN, ENTERIC COATED) 81 mg EC tablet Take 81 mg by mouth once daily. - cholecalciferol, vitamin D3, (VITAMIN D3 ORAL) Take by mouth once daily. 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] 10/09/2022 Closed fracture of hip (HCC) [S72.009A] 02/06/2023 Closed head injury [S09.90XA] 08/27/2023 Concussion injury of body structure [S06.0XAA] 08/27/2023 Edema of lower extremity [R60.0] 08/27/2023 Fall [W19.XXXA] 08/27/2023 History of brain disorder [Z86.69] 08/27/2023 Presence of stent in coronary artery [Z95.5] 08/27/2023 Encounter Status:[facility] (ORMDNA) MONISHA COHN ([id number]) 1940 F Date Time Provider Department 10/16/23 LAURA JASSO During your visit today, we recorded the following information about you: Edwina Flanagan 10/16/2023 10:05 AM Signed Patient is staying at a facility and is going physical therapy there. They were inquiring about what specific program needs to be done for the patient, please call facility at [phone], they also asked if we could send any office visit notes. Karolina Sanders, RN 10/16/2023 2:31 PM Signed Called back number and spoke with therapist. Told her Yara's note Range of motion and rotator cuff strengthening Thanks, Claudia Manuel PA-C " Allergies As of Date: 10/16/2023 Noted Allergy Reaction PERCOCET (OXYCODONE-ACETAMINOPHE N)10/07/2022 2 - Rash 9 - Itching Date Reviewed: 09/29/2023 Reviewed by: Em Flynn APRN.CEMENTER MACHINE - Fully Assessed Reason for Visit: Patient Update [3894] Patient Question [8127] Orders [681] Prescriptions as of 10/16/2023 - alendronate (FOSAMAX) 70 mg tablet Take 70 mg by mouth one time a week. In AM with cup of water on empty stomach. Nothing else by mouth and stay upright for 30 min. - Ceramides 1,3,6-11 (CERAVE DAILY MOISTURIZING) lotn Apply to affected area. - DULoxetine (CYMBALTA) 20 mg capsule 2 capsules once daily. - ascorbic acid, vitamin C, (VITAMIN C) 500 mg tablet Take 1 tablet by mouth two times a day. - ferrous sulfate 325 mg (65 mg iron) tablet Take by mouth. - polyethylene glycol 3350 17 gram/dose powder Take by mouth. - senna-docusate (SENNA-S) 8.6-50 mg per tablet Take by mouth. - Acetaminophen 500 mg cap Take by mouth. - metoprolol tartrate, short acting, (LOPRESSOR) 25 mg tablet 0.5 tablets two times a day. - MYRBETRIQ 25 mg Tb24 1 tablet once daily. - traMADol (ULTRAM) 50 mg tablet - psyllium (KONSYL) packet Take by mouth. - cyanocobalamin (VITAMIN B-12) 500 mcg tablet Take 1 tablet by mouth once daily. - atorvastatin (LIPITOR) 40 mg tablet Take 1 tablet by mouth every afternoon. - losartan (COZAAR) 25 mg tablet Take 1 tablet by mouth every afternoon. - carbidopa-levodopa (SINEMET) 25-100 mg per tablet Take 2 tablet daily at 8AM, 2 tablet daily at 12PM, 2 tablet daily at 4PM, and 1.5 tablet daily at 8PM. - aspirin, enteric coated (ASPIRIN, ENTERIC COATED) 81 mg EC tablet Take 81 mg by mouth once daily. - cholecalciferol, vitamin D3, (VITAMIN D3 ORAL) Take by mouth once daily. 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] 10/09/2022 Closed fracture of hip (HCC) [S72.009A] 02/06/2023 Closed head injury [S09.90XA] 08/27/2023 Concussion injury of body structure [S06.0XAA] 08/27/2023 Edema of lower extremity [R60.0] 08/27/2023 Fall [W19.XXXA] 08/27/2023 History of brain disorder [Z86.69] 08/27/2023 Presence of stent in coronary artery [Z95.5] 08/27/2023 Encounter Status:Closed by KAROLINA SANDERS on 10/16/23 [facility] CNOVon 10-02-2023 CNOV Office Visit (ORMDRG ) MONISHA COHN ([id number]) 1940 F Date Time Provider Department 10/02/23 8:30 AM LAURA JASSO ORLAR During your visit today, we recorded the following information about you: Laura Jasso MD 10/02/2023 10:01 AM Signed ORTHOPAEDIC SHOULDER AND ELBOW SERVICE HISTORY AND PHYSICAL EXAM REFERRING PROVIDER: Marie Ramirez [address] [place] [id number] CHIEF COMPLAINT: left shoulder pain PAIN EVALUATION 10/02/2023 0852 Pain Location: Shoulder-Left Description: Radiating;Aching;Sharp radiates to elbow, also to wrist Frequency: Continuous Intervention/Comfort measure: Heat;Medication;Reposit ion;Relaxation;Exercise tylenol, tramadol Comments: [facility] Monisha Cohn is a 83 year old female presents to clinic with left shoulder pain. Began about a month ago without acute injury. She is having pain at night. Pain is over the lateral shoulder. Taking tramadol and Tylenol. Currently residing at a rehab facility while rehabilitating her left hip, which recently had surgery. Before the hip fracture she lived at home with her and friend. 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 SOCIAL HISTORY: Social History Tobacco Use Smoking status: Former Types: Cigarettes Passive exposure: Never Smokeless tobacco: Never Substance Use Topics Alcohol use: Never Drug use: Never ALLERGIES: ALLERGIES Allergen Reactions Percocet [Oxycodone* Rash, Itching MEDICATIONS: Current Outpatient Medications on File Prior to Visit Medication Sig alendronate (FOSAMAX) 70 mg tablet Take 70 mg by mouth one time a week. In AM with cup of water on empty stomach. Nothing else by mouth and stay upright for 30 min. Ceramides 1,3,6-11 (CERAVE DAILY MOISTURIZING) lotn Apply to affected area. DULoxetine (CYMBALTA) 20 mg capsule 2 capsules once daily. ascorbic acid, vitamin C, (VITAMIN C) 500 mg tablet Take 1 tablet by mouth two times a day. ferrous sulfate 325 mg (65 mg iron) tablet Take by mouth. polyethylene glycol 3350 17 gram/dose powder Take by mouth. senna-docusate (SENNA-S) 8.6-50 mg per tablet Take by mouth. Acetaminophen 500 mg cap Take by mouth. metoprolol tartrate, short acting, (LOPRESSOR) 25 mg tablet 0.5 tablets two times a day. MYRBETRIQ 25 mg Tb24 1 tablet once daily. traMADol (ULTRAM) 50 mg tablet psyllium (KONSYL) packet Take by mouth. cyanocobalamin (VITAMIN B-12) 500 mcg tablet Take 1 tablet by mouth once daily. atorvastatin (LIPITOR) 40 mg tablet Take 1 tablet by mouth every afternoon. losartan (COZAAR) 25 mg tablet Take 1 tablet by mouth every afternoon. carbidopa-levodopa (SINEMET) 25-100 mg per tablet Take 2 tablet daily at 8AM, 2 tablet daily at 12PM, 2 tablet daily at 4PM, and 1.5 tablet daily at 8PM. aspirin, enteric coated (ASPIRIN, ENTERIC COATED) 81 mg EC tablet Take 81 mg by mouth once daily. cholecalciferol, vitamin D3, (VITAMIN D3 ORAL) Take by mouth once daily. No current facility-administered medications on file prior to visit. PHYSICAL EXAMINATION: LMP (LMP Unknown) EXAM: Shoulder Musculoskeletal Exam Inspection Left Left shoulder inspection is normal. Palpation Left Tenderness: present Range of Motion Left Active ROM: abnormal and pain. Active forward elevation: 140 (painful arc 90-140). Passive forward elevation: 140. Shoulder active abduction: 90. Passive abduction: 90. Active external rotation at side: 30. Passive external rotation at side: 30. Internal rotation: L5. Strength Left External rotation: 4+/5. Internal rotation: 4+/5. Abduction: 4/5. Abduction is affected by pain. Neurovascular Left Left shoulder nerve sensation is normal. Scapula Left Left shoulder scapula is normal. Special Tests Left Rotator Cuff Signs Neer's test: positive Cho test: positive External rotation lag sign: negative Supraspinatus: positive Belly press test: negative Painful arc test: positive Lift-off sign: negative Bear hug test: negative Drop arm test: negative Biceps/bambi Signs [place]'s test: positive Michael deformity: negative Speed's test: negative AC Joint Signs Active horizontal adduction pain: negative Instability Signs (more content not included)... Normal [facility] Large Joint Arthro/Inj: L sh oulder jointon 10-02-2023 Laura Jasso MD 10/02/2023 10:01 AM Large Joint Arthro/Inj: L shoulder joint 10/02/2023 10:00 AM The procedure site was prepped in the usual sterile fashion. Site: L shoulder joint Medications: 80 mg triamcinolone acetonide 40 mg/mL Anesthetics: 4 mL bupivacaine (PF) 0.25 % (2.5 mg/mL) Outcome: Tolerated well, no immediate complications Post-injection instructions were reviewed with the patient and the patient voiced understanding of these instructions. [facility] XR Shoulder - left 3 Viewson 10-01-2023 IMPRESSION: Degenerative changes with chronic rotator cuff tear. Document Scanner: EMMY Transcribe Date/Time: Oct 01 2023 6:45A Dictated by : SHENA OAKLEY MD This examination was interpreted and the report reviewed and electronically signed by: SHENA OAKLEY MD on Oct 01 2023 6:46AM [facility] * * *Final Report* * * DATE OF EXAM: Sep 29 2023 10:17AM JOSE 5252 - XR SHLDR >/=3V AP/KIERA AP/OTHR LT / PROCEDURE REASON: multiple diagnoses * * * * Physician Interpretation * * * * PROCEDURE: Left shoulder INDICATION: Chronic left shoulder pain .Left shoulder pain TECHNIQUE: XR SHLDR >/=3V AP/KIERA AP/OTHR LT COMPARISON: None FINDINGS: Positioning was difficult to resolve images were obtained with the patient in a wheelchair. There is moderate glenohumeral and AC joint osteoarthrosis. Narrowed acromiohumeral interval suggesting chronic rotator cuff tear. No fracture or dislocation. [facility] Provider, Coni Homa [facility] - 10/01/2023 * * *Final Report* * * DATE OF EXAM: Sep 29 2023 10:17AM JOSE 5252 - XR SHLDR >/=3V AP/KIERA AP/OTHR LT / PROCEDURE REASON: multiple diagnoses * * * * Physician Interpretation * * * * PROCEDURE: Left shoulder INDICATION: Chronic left shoulder pain .Left shoulder pain TECHNIQUE: XR SHLDR >/=3V AP/KIERA AP/OTHR LT COMPARISON: None FINDINGS: Positioning was difficult to resolve images were obtained with the patient in a wheelchair. There is moderate glenohumeral and AC joint osteoarthrosis. Narrowed acromiohumeral interval suggesting chronic rotator cuff tear. No fracture or dislocation. IMPRESSION IMPRESSION: Degenerative changes with chronic rotator cuff tear. Document Scanner: [facility] Transcribe Date/Time: Oct 01 2023 6:45A Dictated by : SHENA OAKLEY MD This examination was interpreted and the report reviewed and electronically signed by: SHENA OAKLEY MD on Oct 01 2023 6:46AM EST [facility] XR Shoulder - left 3 ViewsOr dered By: [facility] Provider on 10-01-2023 [facility] CNOVon 09-29-2023 CNOV Office Visit (NRMDN) MONISHA COHN ([id number]) 1940 F Date Time Provider Department 09/29/23 9:00 AM EM FLYNN During your visit today, we recorded the following information about you: Pulse Blood pressure Weight Height 58/minute 106/69 73.9 kg 1.575 m Em Flynn APRN.CNP 09/30/2023 7:37 AM Addendum [facility] - FOLLOW UP EVALUATION Alexandra Arreguin APRN.CEMENTER MACHINE [address] [address] Dear Alexandra Arreguin APRN.CEMENTER MACHINE: I had the pleasure of seeing Ms. Cohn for follow-up today. As you know she is a 83 year old right-handed female with a history of Parkinson's disease since 2019. She is seen alone. Subjective 07/06/23 visit: Parkinson's disease: Reduce your 12pm dose to 1.5 tablets [...] your water intake and change positions slowly. I will have the nurses measure your blood pressure sitting and standing for one week at approximately the same time every day If it continues to drop (top number 20 points or more or bottom number 10 points or more) please discuss with your licensing services clerk. Hallucinations: I am hoping that the reduction in Sinemet helps these, but if it does not and they are bothering you, please let me know. Dysphagia (difficulty swallowing): I am ordering speech therapy for this and your quiet speech Double vision: Please follow up with your feed mixer helper Left arm pain/numbness and tingling: I have ordered a neck MRI. Interval History: She said she has been doing fair but that overall since she has accepted having the diagnosis of Parkinson's disease, she is better. She does still have pain constantly but was told by orthopedic surgeon that it would be too risky to operate. She fell on Thursday when she was incontinent with urine all over the floor so she slipped on it and fell. She was using a walker but she said she thinks she fell because she did not have her shoes on. She is getting an xray of her injured arm after today's visit. 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) Dyskinesia: no Prior Anti-Parkinson Therapies Carbidopa/Levodopa Questionnaires: In addition, the following areas that may be affected by abnormal involuntary movements were evaluated: Daily activities Difficulties with eating: Difficulties in dressing: Difficulties with hygiene activities: Difficulties with handwriting: Difficulties with doing hobbies and other activities: Difficulties turning in bed: Difficulties getting out of bed, car or chair: Tremors/Gait/Balance Shaking or tremors: Not bad but some Walking and balance problems: Yes Number of falls in the Last Month: 1 Gait freezing: Yes Autonomic/Pain Lightheadeness on standing: If she gets up slow, she is fine. Urinary problems: Incontinence-on Myrbetriq Constipation problems: No Pain and other sensations: Chronic Speech/Swallowing Speech problems: Sometimes words just do not come out and others tell her she talks too soft Drooling: Both during the day and at night Chewing and swallowing problems: Yes but she does not want an MBS. She takes her pills with pudding and this helps. Sleep/Fatigue Sleep problems: No Daytime sleepiness: She naps daily. 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 Restless Legs Syndrome: No Leg swelling: Yes Impaired sense of smell: Yes Cognition: Cognitive impairment: no MoCA Cognitive assessment: Hallucinations and delusions: yes She sometimes feels her is next to her when he is not. Every once in a while she feels she is standing on the ceiling and then she blinks and the room rights itself. She sometimes fee (more content not included)... Normal [facility] XR SHLDR >/=3V AP/KIERA AP/OTH R LTon 09-29-2023 XR SHLDR >/=3V AP/KIERA AP/OTHR LT * * *Final Report* * * DATE OF EXAM: Sep 29 2023 10:17AM JOSE 5252 - XR SHLDR >/=3V AP/KIERA AP/OTHR LT / PROCEDURE REASON: multiple diagnoses * * * * Physician Interpretation * * * * PROCEDURE: Left shoulder INDICATION: Chronic left shoulder pain .Left shoulder pain TECHNIQUE: XR SHLDR >/=3V AP/KIERA AP/OTHR LT COMPARISON: None FINDINGS: Positioning was difficult to resolve images were obtained with the patient in a wheelchair. There is moderate glenohumeral and AC joint osteoarthrosis. Narrowed acromiohumeral interval suggesting chronic rotator cuff tear. No fracture or dislocation. IMPRESSION: Degenerative changes with chronic rotator cuff tear. Document Scanner: EMMY Transcribe Date/Time: Oct 01 2023 6:45A Dictated by : SHENA OAKLEY MD This examination was interpreted and the report reviewed and electronically signed by: SHENA OAKLEY MD on Oct 01 2023 6:46AM EST [id number] [facility] XR Shoulder - left 3 Viewson 09-29-2023 Radiology Study observation (narrative) [facility] DIAG W JOHN PAUL LTon 024 [facility] DIAG W JOHN PAUL LT * * *Final Report* * * DATE OF EXAM: Sep 23 2023 9:39AM MDW 0628 - [facility] DIAG W JOHN PAUL LT / PROCEDURE REASON: R92.2 INCONCLUSIVE MAMMOGRAM * * * * Physician Interpretation * * * * #[id number] - [facility] DIAG W JOHN PAUL LT #[id number] - [facility] US BREAST LTD LT UNILATERAL LEFT DIGITAL DIAGNOSTIC MAMMOGRAM TOMOSYNTHESIS WITH CAD: 09/23/2023 HISTORY: R92.2 Inconclusive Mammogram / Call back/abnormal mamm: Left Abnormal Mammogram. RESULT: TECHNIQUE: The study was acquired using full field digital technology and interpreted from soft copy. Digital Breast Tomosynthesis (DBT) images were obtained and used to assist in the interpretation of this examination. Current study was also evaluated with a Computer Aided Detection (CAD). Comparison is made to exam dated: 08/13/2023 [facility]. The left breast is almost entirely fatty. The patient presents for additional evaluation of asymmetry noted at the baseline mammogram of 08/13/2023. Additional imaging of the LEFT breast was obtained. The asymmetric glandular tissue in the upper outer aspect is felt to represent normal tissue. Using the tomosynthesis imaging at this time however demonstrated a 3 mm nodular density in the retroareolar region slightly laterally. This was likely present in August but better seen with tomosynthesis. Margins are well-defined. Ultrasound will be performed for further evaluation. Remainder of the breast is unremarkable. No significant masses, calcifications, or other findings are seen in the breast. IMPRESSION: INCOMPLETE: NEEDS ADDITIONAL IMAGING EVALUATION Probable benign nodule retroareolar region LEFT breast found using tomosynthesis today. Benign-appearing asymmetric glandular tissue upper outer aspect LEFT breast. Ultrasound correlation will be performed. LIMITED ULTRASOUND OF LEFT BREAST: 09/23/2023 RESULT: Comparison is made to exam dated: 08/13/2023 [facility]. Ultrasound of was performed. Imaging was done with the patient in a chair. In the 3:00 region 2 cm from the nipple there is a 3 x 3 mm anechoic structure with a small amount of internal low level echoes consistent with debris. It is well-defined and would correspond to the mammographic nodule. The remainder of the surrounding tissue is unremarkable. IMPRESSION: BENIGN FINDING Small complicated cyst LEFT breast. Benign-appearing asymmetric glandular tissue. The patient can return next August for annual screening mammography. There is no sonographic evidence of malignancy. Return to annual mammogram screening schedule is recommended. Ajay Bullock M.D. FACR, FSJane [facility]/gi:09/23/2023 10:55:35 Multiple national specialty organizations have released breast cancer screening guidelines for women at average risk for developing breast cancer - guidelines that are based on both evidence and opinion, yet differ on when to start and how often to screen for breast cancer. With representation from Breast Imaging, Internal Medicine, Women's Health, Family Medicine, and Medical/Surgical Oncology, the [facility] has carefully reviewed the data and reached the following consensus: 1) All women should engage in shared decision-making with their providers to decide when to start and how often to screen; 2) All women should have the opportunity to start screening mammography at age 40; 3) For women ages 45-55, we recommend annual screening mammograms; 4) For women ages 55 and over, we support both the transition from an annual to a biennial interval if this aligns more with patient's values and preferences, or continuation with annual screening; 5) All women should discuss with their providers when to stop screening mammograms. Recycle Worker(s): RT Yumiko(R)(M), [facility]; RT Nicole(R), [facility] OVERALL STUDY BIRADS: 2 Benign finding Document Scanner: Gi Transcribe Date/Time: Sep 23 2023 9:21A Dictated by : AJAY BULLOCK MD This examination was interpreted and the report reviewed and electronically signed by: AJAY BULLOCK MD on Sep 23 2023 10:55AM EST [id number] Normal [facility] US BREAST LTD LTon 09-22 [facility] US BREAST LTD LT * * *Final Report* * * DATE OF EXAM: Sep 23 2023 10:32AM JASPREET 0593 - [facility] US BREAST LTD LT / PROCEDURE REASON: Abnormal mammogram * * * * Physician Interpretation * * * * #[id number] - [facility] DIAG W JOHN PAUL LT #[id number] - [facility] US BREAST LTD LT UNILATERAL LEFT DIGITAL DIAGNOSTIC MAMMOGRAM TOMOSYNTHESIS WITH CAD: 09/23/2023 HISTORY: R92.2 Inconclusive Mammogram / Call back/abnormal mamm: Left Abnormal Mammogram. RESULT: TECHNIQUE: The study was acquired using full field digital technology and interpreted from soft copy. Digital Breast Tomosynthesis (DBT) images were obtained and used to assist in the interpretation of this examination. Current study was also evaluated with a Computer Aided Detection (CAD). Comparison is made to exam dated: 08/13/2023 [facility]. The left breast is almost entirely fatty. The patient presents for additional evaluation of asymmetry noted at the baseline mammogram of 08/13/2023. Additional imaging of the LEFT breast was obtained. The asymmetric glandular tissue in the upper outer aspect is felt to represent normal tissue. Using the tomosynthesis imaging at this time however demonstrated a 3 mm nodular density in the retroareolar region slightly laterally. This was likely present in August but better seen with tomosynthesis. Margins are well-defined. Ultrasound will be performed for further evaluation. Remainder of the breast is unremarkable. No significant masses, calcifications, or other findings are seen in the breast. IMPRESSION: INCOMPLETE: NEEDS ADDITIONAL IMAGING EVALUATION Probable benign nodule retroareolar region LEFT breast found using tomosynthesis today. Benign-appearing asymmetric glandular tissue upper outer aspect LEFT breast. Ultrasound correlation will be performed. LIMITED ULTRASOUND OF LEFT BREAST: 09/23/2023 RESULT: Comparison is made to exam dated: 08/13/2023 [facility]. Ultrasound of was performed. Imaging was done with the patient in a chair. In the 3:00 region 2 cm from the nipple there is a 3 x 3 mm anechoic structure with a small amount of internal low level echoes consistent with debris. It is well-defined and would correspond to the mammographic nodule. The remainder of the surrounding tissue is unremarkable. IMPRESSION: BENIGN FINDING Small complicated cyst LEFT breast. Benign-appearing asymmetric glandular tissue. The patient can return next August for annual screening mammography. There is no sonographic evidence of malignancy. Return to annual mammogram screening schedule is recommended. Ajay Bullock M.D. FACCarla, FSBI ch/penrad:09/23/2023 10:55:35 Multiple national specialty organizations have released breast cancer screening guidelines for women at average risk for developing breast cancer - guidelines that are based on both evidence and opinion, yet differ on when to start and how often to screen for breast cancer. With representation from Breast Imaging, Internal Medicine, Women's Health, Family Medicine, and Medical/Surgical Oncology, the [facility] has carefully reviewed the data and reached the following consensus: 1) All women should engage in shared decision-making with their providers to decide when to start and how often to screen; 2) All women should have the opportunity to start screening mammography at age 40; 3) For women ages 45-55, we recommend annual screening mammograms; 4) For women ages 55 and over, we support both the transition from an annual to a biennial interval if this aligns more with patient's values and preferences, or continuation with annual screening; 5) All women should discuss with their providers when to stop screening mammograms. Recycle Worker(s): RT Yumiko(R)(M), [facility]; RT Nicole(R), [facility] OVERALL STUDY BIRADS: 2 Benign finding Document Scanner: Gi Transcribe Date/Time: Sep 23 2023 9:21A Dictated by : AJAY BULLOCK MD This examination was interpreted and the report reviewed and electronically signed by: AJAY BULLOCK MD on Sep 23 2023 10:55AM EST [id number] Normal [facility] US Breast - left limitedon 0 09-23-2023 * * *Final Report* * * DATE OF EXAM: Sep 23 2023 10:32AM JASPREET 0593 - [facility] US BREAST LTD LT / PROCEDURE REASON: Abnormal mammogram * * * * Physician Interpretation * * * * #[id number] - [facility] DIAG W JOHN PAUL LT #[id number] - [facility] US BREAST LTD LT UNILATERAL LEFT DIGITAL DIAGNOSTIC MAMMOGRAM TOMOSYNTHESIS WITH CAD: 09/23/2023 HISTORY: R92.2 Inconclusive Mammogram / Call back/abnormal mamm: Left Abnormal Mammogram. RESULT: TECHNIQUE: The study was acquired using full field digital technology and interpreted from soft copy. Digital Breast Tomosynthesis (DBT) images were obtained and used to assist in the interpretation of this examination. Current study was also evaluated with a Computer Aided Detection (CAD). Comparison is made to exam dated: 08/13/2023 [facility]. The left breast is almost entirely fatty. The patient presents for additional evaluation of asymmetry noted at the baseline mammogram of 08/13/2023. Additional imaging of the LEFT breast was obtained. The asymmetric glandular tissue in the upper outer aspect is felt to represent normal tissue. Using the tomosynthesis imaging at this time however demonstrated a 3 mm nodular density in the retroareolar region slightly laterally. This was likely present in August but better seen with tomosynthesis. Margins are well-defined. Ultrasound will be performed for further evaluation. Remainder of the breast is unremarkable. No significant masses, calcifications, or other findings are seen in the breast. [facility] Provider, Marko Maldonado - 09/23/2023 * * *Final Report* * * DATE OF EXAM: Sep 23 2023 10:32AM JASPREET 0593 - [facility] [employer] BREAST LTD LT / PROCEDURE REASON: Abnormal mammogram * * * * Physician Interpretation * * * * #[id number] - [facility] DIAG W JOHN PAUL LT #[id number] - [facility] [employer] BREAST LTD LT UNILATERAL LEFT DIGITAL DIAGNOSTIC MAMMOGRAM TOMOSYNTHESIS WITH CAD: 09/23/2023 HISTORY: R92.2 Inconclusive Mammogram / Call back/abnormal mamm: Left Abnormal Mammogram. RESULT: TECHNIQUE: The study was acquired using full field digital technology and interpreted from soft copy. Digital Breast Tomosynthesis (DBT) images were obtained and used to assist in the interpretation of this examination. Current study was also evaluated with a Computer Aided Detection (CAD). Comparison is made to exam [facility]: [facility]. The left breast is almost entirely fatty. The patient presents for additional evaluation of asymmetry noted at the baseline mammogram of 08/13/2023. Additional imaging of the LEFT breast was obtained. The asymmetric glandular tissue in the upper outer aspect is felt to represent normal tissue. Using the tomosynthesis imaging at this time however demonstrated a 3 mm nodular density in the retroareolar region slightly laterally. This was likely present in August but better seen with tomosynthesis. Margins are well-defined. Ultrasound will be performed for further evaluation. Remainder of the breast is unremarkable. No significant masses, calcifications, or other findings are seen in the breast. IMPRESSION IMPRESSION: INCOMPLETE: NEEDS ADDITIONAL IMAGING EVALUATION Probable benign nodule retroareolar region LEFT breast found using tomosynthesis today. Benign-appearing asymmetric glandular tissue upper outer aspect LEFT breast. Ultrasound correlation will be performed. LIMITED ULTRASOUND OF LEFT BREAST: 09/23/2023 RESULT: Comparison is made to exam dated: 08/13/2023 mammogram - [facility]. Ultrasound of was performed. Imaging was done with the patient in a chair. In the 3:00 region 2 cm from the nipple there is a 3 x 3 mm anechoic structure with a small amount of internal low level echoes consistent with debris. It is well-defined and would correspond to the mammographic nodule. The remainder of the surrounding tissue is unremarkable. IMPRESSION: BENIGN FINDING Small complicated cyst LEFT breast. Benign-appearing asymmetric glandular tissue. The patient can return next August for annual screening mammography. There is no sonographic evidence of malignancy. Return to annual mammogram screening schedule is recommended. Ajay BENITEZ, [facility]/gi:09/23/2023 10:55:35 Multiple national specialty organizations have released breast cancer screening guidelines for women at average risk for developing breast cancer - guidelines that are based on both evidence and opinion, yet differ on when to start and how often to screen for breast cancer. With representation from Breast Imaging, Internal Medicine, Women's Health, Family Medicine, and Medical/Surgical Oncology, the [facility] has carefully reviewed the data and reached the following consensus: 1) All women should engage in shared decision-making with their providers to decide when to start and how often to screen; 2) All women should have the opportunity to start screening mammography at age 40; 3) For women ages 45-55, we recommend annual screening mammograms; 4) For women ages 55 and over, we support both the transition from an annual to a biennial interval if this aligns more with patient's values and preferences, or continuation with annual screening; 5) All women should discuss with their providers when to stop screening mammograms. Recycle Worker(s): RT Yumiko(Carla)(M), [facility]; RT Nicole(R), [facility] OVERALL STUDY BIRADS: 2 Benign finding Document Scanner: Gi Transcribe Date/Time: Sep 23 2023 9:21A Dictated by : AJAY BULLOCK MD This examination was interpreted and the report reviewed and electronically signed by: AJAY BULLOCK MD on Sep 23 2023 10:55AM EST [facility] Radiology Study observation (narrative) [facility] US Breast - left limitedOrde red By: [facility] Provider on 09-23-2023 [facility] CNPNon 09-02-2023 CNPN Telephone (SPNMED) MONISHA COHN ([id number]) 1940 F Date Time Provider Department 09/02/23 MARIE RAMIREZ SPNMED During your visit today, we recorded the following information about you: Mary Ann Villalobos 09/02/2023 1:20 PM Signed Received call from Rissa at [facility]. Patient would like to complete Physical Therapy on-site at the facility. Order for PT faxed to their facility via [facility]. Mary Ann Villalobos Allergies As of Date: 09/02/2023 Noted Allergy Reaction PERCOCET (OXYCODONE-ACETAMINOPHE N)10/07/2022 2 - Rash 9 - Itching Date Reviewed: 08/27/2023 Reviewed by: Alexandria Wick MA - Fully Assessed Prescriptions as of 09/02/2023 - DULoxetine (CYMBALTA) 20 mg capsule 2 capsules once daily. - ascorbic acid, vitamin C, (VITAMIN C) 500 mg tablet Take 1 tablet by mouth two times a day. - ferrous sulfate 325 mg (65 mg iron) tablet Take by mouth. - polyethylene glycol 3350 17 gram/dose powder Take by mouth. - senna-docusate (SENNA-S) 8.6-50 mg per tablet Take by mouth. - acetaminophen 325 mg cap Take by mouth. - metoprolol tartrate, short acting, (LOPRESSOR) 25 mg tablet 0.5 tablets two times a day. - MYRBETRIQ 25 mg Tb24 1 tablet once daily. - traMADol (ULTRAM) 50 mg tablet - psyllium (KONSYL) packet Take by mouth. - cyanocobalamin (VITAMIN B-12) 500 mcg tablet Take 1 tablet by mouth once daily. - atorvastatin (LIPITOR) 40 mg tablet Take 1 tablet by mouth every afternoon. - losartan (COZAAR) 25 mg tablet Take 1 tablet by mouth every afternoon. - carbidopa-levodopa (SINEMET) 25-100 mg per tablet Take 2 tablet daily at 8AM, 2 tablet daily at 12PM, 2 tablet daily at 4PM, and 1.5 tablet daily at 8PM. - aspirin, enteric coated (ASPIRIN, ENTERIC COATED) 81 mg EC tablet Take 81 mg by mouth once daily. - cholecalciferol, vitamin D3, (VITAMIN D3 ORAL) Take by mouth once daily. - carvedilol (COREG) 3.125 mg tablet Take 3.125 mg by mouth twice daily with meals. - clopidogrel (PLAVIX) 75 mg tablet Take 75 mg by mouth once daily. - fesoterodine (TOVIAZ) 4 mg Tb24 extended release tablet Take 4 mg by mouth once daily. Problem List As Of Date 09/02/2023 Noted Resolved Nonrheumatic tricuspid valve regurgitation [I36*07/31/2022 Arteriosclerosis of coronary artery [I25.10] 07/31/2022 Bladder spasm [N32.89] 10/09/2022 Essential (primary) hypertension [I10] 07/31/2022 Fibromyalgia [M79.7] 10/09/2022 Gout [M10.9] 03/31/2022 Hyperlipidemia [E78.5] 07/31/2022 Myocardial infarction (HCC) [I21.9] 10/09/2022 Parkinson's disease (HCC) [G20.A1] 07/31/2022 Sebaceous cyst [L72.3] 10/09/2022 Urinary urgency [R39.15] 10/09/2022 [place]gyria of skin [T56.891A] 10/09/2022 Closed fracture of hip (HCC) [S72.009A] 02/06/2023 Closed head injury [S09.90XA] 08/27/2023 Concussion injury of body structure [S06.0XAA] 08/27/2023 Edema of lower extremity [R60.0] 08/27/2023 Fall [W19.XXXA] 08/27/2023 History of brain disorder [Z86.69] 08/27/2023 Presence of stent in coronary artery [Z95.5] 08/27/2023 Encounter Status:Closed by MARY ANN VILLALOBOS on 09/02/23 Normal [facility] CNOVon 08-27-2023 CNOV Office Visit (SPNMED ) MONISHA COHN ([id number]) 1940 F Date Time Provider Department 08/27/23 1:40 PM MARIE RAMIREZ SPNMED During your visit today, we recorded the following information about you: Pulse Respiration Blood pressure Weight 60/minute 18/minute 130/57 74.7 kg Height 1.575 m Marie Ramirez PA-C 08/27/2023 2:46 PM Signed Marie Ramirez PA-C [facility] [address] [place] [address] 08/27/2023 ASSESSMENT AND PLAN: Assessment : Encounter Diagnosis ICD-10-CM 1. Acute pain of left shoulder M25.512 CONSULT TO PHYSICAL THERAPY 2. Protrusion of cervical intervertebral disc M50.20 CONSULT TO PHYSICAL THERAPY 3. Pain in left elbow M25.522 CONSULT TO PHYSICAL THERAPY Discussion: Ms. Cohn is a pleasant 83-year-old female current resident of a rehab facility who recently had hip replacement and is finishing rehab on that but developed problems in her LEFT side of her neck, trapezius, left shoulder, left elbow and occasionally into her left hand. Symptoms are not present in the hand today, but she thinks that it involves her fourth digit. She has symptoms in the anterior left elbow region and superior left shoulder region. She denies posterior neck pain or change of her pain with neck motion. She had recent cervical MRI study completed on July 29, 2023. EXAM Highlights: She remained seated in a wheelchair during today's exam and is somewhat unsteady on her feet. She is slow to get up from sitting to standing posture. She has mild pain on palpation over LEFT side of her neck and trapezius, superior left shoulder, left antecubital region. She has age-appropriate diminishment of motion in the cervical region. She has difficulties with any motion of her LEFT arm above shoulder level and with fully extending her LEFT elbow, and with pronation and supination of the LEFT arm. Overall, her skin coloration is bluish especially in the face and head area. This is expected to have been from taking silver supplementation in the remote past for management of fibromyalgia. Neck range of motion is mildly limited without significant pain reproduction other than muscular LEFT-sided neck pain IMAGIN07/29/2023 cervical MRI study showed multilevel disc degeneration with small disc bulges at multiple levels and foraminal narrowing worse on the right at C6-7, worse on the left at C5-6. There is appreciable central narrowing at C3-4. SUMMARY/PLAN: We a long discussion during today's visit about considering whether or not to do more conservative therapy with PT versus try cervical injections. Unfortunately with cervical injections, it would be difficult to know where to specifically aim with multiple areas of the cervical spine potentially involved in possible symptom production. She does seem to have some articular issues in the elbow and shoulder area and I would value further input from orthopedics regarding those issues separately especially since it involves motion deficits and localized pain with motion there. I think she would be willing to consider a cervical injection for some of her symptoms, but it is uncertain if injection would give her much relief and it involves a little higher level of risk to consider that. I would like her to go forward with therapy and orthopedic evaluation Plan : REFERAL FOR SERVICES: -Physical therapy will be instituted. FOLLOW-UP: -The patient is instructed to return as needed. This document has been created with the use of voice recognition technology. It may contain inaccuracies: (e.g. misspellings, inaccurate syntax or word sense) that have escaped review. Time spent: 50 minutes today with this patient visit. This includes imji-if-sofc time, review of chart records regarding conservative care history, spine-pertinent imaging, and communication/care coordination with referring provider, problem-specific history-taking and counseling/education regarding treatment options. cc: Em Flynn [address] [address] Results of consultation to be transmitted via electronic medical record for those providers who practice within [facility] or with access to Bk[employer] via [facility], or via letter. ___ ####################### ####################### ####################### ### CHIEF COMPLAINT: Neck Pain and Left arm Pain HPI: See "Discussiuon" above History of bowel or bladder dysfunction (not IBS or constipation): No History of previous spinal surgery: No History of spinal fracture: No Work Status: retired NON-OPERATIVE CARE: Medication(s): She has tried the following for relief of her symptoms: OTC Tylenol Ultram/tramadol (more content not included)... Normal [facility] BD DXA - AXIAL SKELETONon BD DXA - AXIAL SKELETON * * *Final Report* * * DATE OF EXAM: Aug 13 2023 2:25PM SARAH 0804 - BD DXA - AXIAL SKELETON B / PROCEDURE REASON: Z78.0 ASYMPTOMATIC MENOPAUSAL STATE * * * * Physician Interpretation * * * * EXAMINATION: DXA BONE DENSITOMETRY BD DXA - AXIAL SKELETON PATIENT DEMOGRAPHICS: Age: 83 years, Gender: Female SCANNER INFORMATION: DXA Model: [employer] [id number] Date Scanned: 08/13/2023 2:25 PM CLINICAL HISTORY: SCREENING Z78.0 ASYMPTOMATIC MENOPAUSAL STATE. RISK FACTORS FOR OSTEOPOROSIS AND ASSOCIATED FRACTURES REPORTED BY THIS PATIENT: Please refer to Bone Health Questionnaire in the EMR CURRENT THERAPY: Please refer to Bone Health Questionnaire in the EMR TECHNICAL LIMITATIONS: left hip fracture/surgery RESULTS: Lumbar Spine (L1, L2, L3, L4): Total BMD: 0.913 g/cm2, T-score: -2.2 , Z-score: -0.6 Right Femoral Neck: 0.631 g/cm2 , T-score -2.9, Z-score -0.9 Right Total Hip: 0.618 g/cm2 , T-score -3.1, Z-score -1.2 No comparison data - the patient has not had a previous bone density in the [facility] or the previous bone density was performed on a different DXA machine (new, updated model or different location) within the [facility]. VERTEBRAL FRACTURE ASSESSMENT Not performed. TRABECULAR BONE ASSESSMENT TBS score: 1369 Bone micro-architecture: : normal (> 1.310) IMPRESSION: THE LOWEST T-SCORE IS -3.1 IN THE RIGHT HIP 1) DIAGNOSIS (based on BMD alone): OSTEOPOROSIS Caution: Medical conditions other than osteoporosis may cause low bone density, such as osteomalacia or renal osteodystrophy. Clinical correlation is necessary. 2) FRACTURE RISK (Based on TBS adjusted FRAX): 10-year absolute fracture risk: - major osteoporotic fracture =27.1 % - hip fracture = 11.7 % - A diagnosis of Osteoporosis, a 10 year probability of hip fracture greater than or equal to 3% or a 10 year probability of any major osteoporosis-related fracture greater than or equal to 20% should be considered for treatment. - DXA scanner generated FRAX calculations may slightly differ from online FRAX calculations due to differences in software versions. - All recommendations and calculations are to be considered as guidelines and should not replace sound clinical judgement - Caution: Fracture risk may be increased independent of BMD in patients with corticosteroid use, age greater than 65 years, or a history of prior fragility fracture. RECOMMENDATIONS: Follow-up in 2 years or as clinically indicated. Patients that are taking corticosteroids, are transplant recipients or have hyperparathyroidism should have annual follow-up. Follow-up scans should always be done on the same machine for accurate comparison. FOR MORE INFORMATION ABOUT DIAGNOSIS AND TREATMENT: [facility] Osteoporosis and Metabolic Bone Disease:? www.ccf.org/arthritis/o steo National Osteoporosis Foundation:? www.nof.org International Society of Clinical Densitometry www.iscd.org Document Scanner: EMMY Transcribe Date/Time: Aug 14 2023 8:30A Dictated by : SHENA OAKLEY MD This examination was interpreted and the report reviewed and electronically signed by: SHENA OAKLEY MD on Aug 14 2023 8:31AM EST [id number] -3.1 Normal [facility] SCREENINGon 08-13-2023 [facility] SCREENING * * *Final Report* * * DATE OF EXAM: Aug 13 2023 2:10PM JOSÉ LUIS 0581 - [facility] SCREENING / PROCEDURE REASON: Z12.31 SCREENING MAMMOGRAM * * * * Physician Interpretation * * * * #[id number] - [facility] SCREENING BILATERAL DIGITAL SCREENING MAMMOGRAM WITH CAD: 08/13/2023 HISTORY: Z12.31 Screening Mammogram / Screening Mammogram-Patient reports NO symptoms./unsure outside film location. RESULT: TECHNIQUE: The study was acquired using full field digital technology and interpreted from soft copy. Current study was also evaluated with a Computer Aided Detection (CAD). No prior exams were available for comparison. The breasts are almost entirely fatty. There is a focal asymmetry in the left breast at 2 o'clock middle depth. No other significant masses, calcifications, or other findings are seen in either breast. IMPRESSION: INCOMPLETE: NEEDS ADDITIONAL IMAGING EVALUATION The focal asymmetry in the left breast is indeterminate. Additional views with possible ultrasound are recommended. Jayleen Castellanos M.D. rs/gi:08/14/2023 11:00:52 Recycle Worker(s): RT Maribel(R)(M), [facility] letter sent: Additional Imaging Needed Mammogram BI-RADS: 0 Incomplete: needs additional imaging evaluation If this report indicates you need additional imaging, and it has NOT yet been performed, please call , to schedule. We sincerely thank you for choosing the [facility] for your breast imaging needs. Multiple national specialty organizations have released breast cancer screening guidelines for women at average risk for developing breast cancer - guidelines that are based on both evidence and opinion, yet differ on when to start and how often to screen for breast cancer. With representation from Breast Imaging, Internal Medicine, Women's Health, Family Medicine, and Medical/Surgical Oncology, the [facility] has carefully reviewed the data and reached the following consensus: 1) All women should engage in shared decision-making with their providers to decide when to start and how often to screen; 2) All women should have the opportunity to start screening mammography at age 40; 3) For women ages 45-55, we recommend annual screening mammograms; 4) For women ages 55 and over, we support both the transition from an annual to a biennial interval if this aligns more with patient's values and preferences, or continuation with annual screening; 5) All women should discuss with their providers when to stop screening mammograms. Document Scanner: Gi Transcribe Date/Time: Aug 13 2023 1:56P Dictated by : JAYLEEN CASTELLANOS MD This examination was interpreted and the report reviewed and electronically signed by: JAYLEEN CASTELLANOS MD on Aug 14 2023 11:00AM EST [id number] [facility] MR Cervical spine WO contras ton 07-29-2023 [facility] MRI CERVICAL SPINE WO IVCONo n 07-29-2023 MRI CERVICAL SPINE WO IVCON * * *Final Report* * * DATE OF EXAM: Jul 29 2023 10:54AM LDM 0297 - MRI CERVICAL SPINE WO IVCON / PROCEDURE REASON: Spinal stenosis of cervical region * * * * Physician Interpretation * * * * EXAMINATION: MRI CERVICAL SPINE WO IVCON CLINICAL HISTORY: Spinal stenosis of cervical region, neck pain TECHNIQUE: Routine cervical spine MR protocol without gadolinium. MQ: [id number] COMPARISON: None. RESULT: Counting reference: Craniocervical junction. Anatomic Variants: None. Localizer images: No cervical lymphadenopathy. Alignment: Alignment is anatomic. Craniocervical junction: Craniocervical junction is normal. Normal cerebellar tonsillar position Cord: The visualized cord is within normal limits of signal intensity. No poststenotic myelomalacia or syrinx. No cord atrophy Right posterior disc protrusion at the C6-7 level with mass effect/deformity right ventral cord best seen T2 axial image 17. At the C3-4 level, mild degenerative effacement ventral and dorsal aspect of the cord Bone marrow signal/fracture: No evidence of pathologic marrow infiltration. No evidence of acute or prior fracture. Multilevel degenerative disc/endplate degenerative changes most prominent C5-6 level Cervical soft tissues: The paraspinal soft tissues are within normal limits. C2-C3: Canal and foramina are patent. C3-C4: Mild degree of degenerative central canal and bilateral foraminal stenosis greater left side secondary to posterior disc osteophyte/uncovertebra l hypertrophy and posterior hypertrophic changes. Mild effacement ventral and dorsal aspect of the cord C4-C5: Moderate degree degenerative left foraminal stenosis due to facet arthropathy. Central canal is patent C5-C6: Mild degree of degenerative central canal right foraminal stenosis in addition a moderate/severe left foraminal stenosis due to uncovertebral hypertrophy and mild posterior hypertrophic changes C6-C7: Right posterior disc protrusion with mass effect/deformity right ventral cord best seen T2 axial image 17. C7-T1: Canal and foramina are patent. IMPRESSION: 1.Right posterior disc protrusion at the C6-7 level with mass effect/deformity right ventral cord best seen T2 axial image 17. No poststenotic myelomalacia 2. At the C3-4 level, mild degenerative effacement ventral and dorsal aspect of the cord. 3. Multilevel degenerative central and foraminal stenotic changes, as listed above Anatomic Variant: None. Assume 7 cervical vertebrae with counting from the craniocervical junction. Document Scanner: [facility] Transcribe Date/Time: Jul 29 2023 12:48P Dictated by : KELVIN GUTIERREZ MD This examination was interpreted and the report reviewed and electronically signed by: KELVIN GUTIERREZ MD on Jul 29 2023 1:29PM EST [id number] Normal [facility] Absolute lymphocyte countOrd ered By: Law Gold on 05-01-2023 Lymphocytes Auto (Unsp spec) [#/Vol] 1.22 10*3/uL 0.83-4.51 [facility] Activated partial thrombopla stin time (aPTT) in platelet poor plasma by coagulation aOrdered By: Law Gold on 05-01-2023 aPTT Coag (PPP) [Time] 23.0 s 24.1-36.2 [facility] Automated lymphocyte count a s percentage of total leukocytesOrdered By: Law Gold on 05-01-2023 Lymphocytes/100 WBC Auto (Unsp spec) 19.9 % 19-41 [facility] Basophil percentageOrdered B y: Law Gold on 05-01-2023 Basophils/100 WBC (Bld) 0.8 % 0-1 [facility] Chloride [Moles/Vol] 106 mmol/L 98-107 [facility] Eosinophils/100 WBC (Bld) 5.2 % 0-5 [facility] Glucose [Mass/Vol] 87 mg/dL 74-106 [facility] Hemoglobin (Bld) [Mass/Vol] 10.7 g/dL 12.0-15.0 [facility] Monocytes/100 WBC (Bld) 11.6 % 0-10 [facility] Neutrophils (Bld) [#/Vol] 3.8 10*3/uL 2.0-7.7 [facility] Neutrophils/100 WBC (Bld) 62.2 % 47-70 [facility] Potassium [Moles/Vol] 4.4 mmol/L 3.5-5.[address] [facility] Sodium [Moles/Vol] 139 mmol/L 136-145 [facility] WBC (Bld) [#/Vol] 6.1 10*3/uL 4.4-11.0 [facility] Determination of erythrocyte mean corpuscular volume (MCV)Ordered By: Law Gold on 05-01-2023 MCV (RBC) [Entitic vol] 90.3 fL 81-99 [facility] Erythrocyte distribution wid th ratioOrdered By: Law Gold on 05-01-2023 Erythrocyte distribution width (RBC) [Ratio] 13.2 % 11.6-14.6 [facility] Erythrocyte distribution wid th standard deviationOrdered By: Law Gold on 05-01-2023 Erythrocyte distribution width (RBC) [Entitic vol] 43.1 fL 35.1-43.9 [facility] Hematocrit Auto (Bld) [Volum e fraction]Ordered By: Law Gold on 05-01-2023 Hematocrit (Bld) [Volume fraction] 34.3 % 37-47 [facility] Immature granulocytes/100 WB C Auto (Bld)Ordered By: Law Gold on 05-01-2023 Immature granulocytes/100 WBC (Bld) 0.300 % 0.0-0.9 [facility] Comment on above: IG% - Immature Granu locytes (promyelocytes, myelocytes and metamyelocytes) > 1% indicates that a LEFT SHIFT is Present. International normalized rat io (INR) calculationOrdered By: Law Gold on 05-01-2023 INR Coag (PPP) [Relative time] 1.3 {INR} [facility] Laboratory - Chemistry and C hemistry - challengeOrdered By: Law Gold on 05-01-2023 CO2 [Moles/Vol] 28.0 mmol/L 21.0-32.0 [facility] Urea nitrogen/Creatinine [Mass ratio] 18.9 mg/mg 10-20 [facility] Laboratory - CoagulationOrde red By: Law Gold on 05-01-2023 PT Coag (PPP) [Time] 16.1 s 11.7-14.9 [facility] Laboratory - Hematology and Cell countsOrdered By: Law Gold on 05-01-2023 MCH (RBC) [Entitic mass] 28.2 pg 27.0-32.0 [facility] MCHC (RBC) [Mass/Vol] 31.2 g/dL 32-[address] [facility] Nucleated RBC/100 WBC (Bld) [Ratio] 0 % 0-5 [facility] Platelets (Bld) [#/Vol] 311 10*3/uL 150-450 [facility] No Panel InformationOrdered By: Law Gold on 05-01-2023 Estimated Creatinine Clearance Calc 51.35 ml/min [facility] Estimated GFR (MDRD) Amer 89 mL/min >60 [facility] Comment on above: GFR Calc Estimated GFR (MDRD) Non-Af Amer 74 mL/min >60 [facility] Comment on above: Non- GFR Calc Platelet mean volume [place] (Bld) [Entitic vol]Ordered By: Law Gold on 05-01-2023 Platelet mean volume (Bld) [Entitic vol] 8.4 fL 6.2-12.0 [facility] RBC Auto (Bld) [#/Vol]Ordere d By: Law Gold on 05-01-2023 RBC (Bld) [#/Vol] 3.80 10*6/uL 4.2-5.4 [facility] Serum or plasma calcium taylor urement (mass/volume)Ordered By: Law Gold on 05-01-2023 Calcium [Mass/Vol] 8.9 mg/dL 8.5-10.1 [facility] Serum or plasma creatinine m easurement (mass/volume)Ordered By: Law Gold on 05-01-2023 Creatinine [Mass/Vol] 0.79 mg/dL 0.55-1.[address] [facility] Comment on above: The validity of the calculated GFR & GFRAA in patients over 70 years has not been determined. Clinical correlation is essential. Serum or plasma urea nitroge n measurement (mass/volume)Ordered By: Law Gold on 05-01-2023 Urea nitrogen [Mass/Vol] 15 mg/dL 7-18 [facility] Thin prep Papanicolaou smear with manual screeningOrdered By: Law Gold on 05-01-2023 Thin prep Papanicolaou smear with manual screening 5 5-15 [facility] Absolute lymphocyte countOrd ered By: Darline Lundy on 02-06-2023 Lymphocytes Auto (Unsp spec) [#/Vol] 2.15 10*3/uL 0.83-4.51 [facility] Basophil percentageOrdered B y: Darline Lundy on 02-06-2023 Basophils/100 WBC (Bld) 0.4 % 0-1 [facility] Chloride [Moles/Vol] 108 mmol/L 98-107 [facility] Eosinophils/100 WBC (Bld) 2.6 % 0-5 [facility] Glucose [Mass/Vol] 90 mg/dL 74-106 [facility] Neutrophils (Bld) [#/Vol] 3.9 10*3/uL 2.0-7.7 [facility] Neutrophils/100 WBC (Bld) 55.6 % 47-70 [facility] Potassium [Moles/Vol] 4.2 mmol/L 3.5-5.[address] [facility] Sodium [Moles/Vol] 140 mmol/L 136-145 [facility] WBC (Bld) [#/Vol] 7.0 10*3/uL 4.4-11.0 [facility] Blood erythrocytes count (nu mber/volume)Ordered By: Darline Lundy on 02-06-2023 RBC (Bld) [#/Vol] 2.47 10*6/uL 4.2-5.4 [facility] Blood hemoglobin measurement (mass/volume)Ordered By: Darline Lundy on 02-06-2023 Hemoglobin (Bld) [Mass/Vol] 7.8 g/dL 12.0-15.0 [facility] Blood lymphocytes/100 leukoc ytesOrdered By: Darline Lundy on 02-06-2023 Lymphocytes/100 WBC (Bld) 30.5 % 19-41 [facility] Blood monocytes/100 leukocyt esOrdered By: Darline Lundy on 02-06-2023 Monocytes/100 WBC (Bld) 10.2 % 0-10 [facility] Blood platelet mean volumeOr dered By: Darline Lundy on 02-06-2023 Platelet mean volume (Bld) [Entitic vol] 8.9 fL 6.2-12.0 [facility] COVID-19 virus antigen assay Ordered By: Darline Lundy on 02-06-2023 SARS-CoV-2 (COVID-19) Ag IA.rapid Ql (Resp) [facility] SARS-CoV-2 (COVID-19) Ag IA.rapid Ql (Resp) [facility] Determination of erythrocyte mean corpuscular volume (MCV)Ordered By: Darline Lundy on 02-06-2023 MCV (RBC) [Entitic vol] 90.7 fL 81-99 [facility] Hematocrit Auto (Bld) [Volum e fraction]Ordered By: Darline Lundy on 02-06-2023 Hematocrit (Bld) [Volume fraction] 22.4 % 37-47 [facility] Laboratory - Chemistry and C hemistry - challengeOrdered By: Darline Lundy on 02-06-2023 CO2 [Moles/Vol] 29.0 mmol/L 21.0-32.0 [facility] Urea nitrogen/Creatinine [Mass ratio] 25.2 mg/mg 10-20 [facility] Laboratory - Hematology and Cell countsOrdered By: Darline Lundy on 02-06-2023 Erythrocyte distribution width (RBC) [Entitic vol] 45.7 fL 35.1-43.9 [facility] Erythrocyte distribution width (RBC) [Ratio] 14.2 % 11.6-14.6 [facility] Immature granulocytes/100 WBC (Bld) 0.700 % 0.0-0.9 [facility] Comment on above: IG% - Immature Granu locytes (promyelocytes, myelocytes and metamyelocytes) > 1% indicates that a LEFT SHIFT is Present. MCH (RBC) [Entitic mass] 28.7 pg 27.0-32.0 [facility] Nucleated RBC/100 WBC (Bld) [Ratio] 0 % 0-5 [facility] MCHC Auto (RBC) [Mass/Vol]Or dered By: Darline Lundy on 02-06-2023 MCHC (RBC) [Mass/Vol] 31.7 g/dL 32-[address] [facility] Comment on above: Delta: 33.5 on 02/0540 No Panel InformationOrdered By: Darline Lundy on 02-06-2023 Estimated Creatinine Clearance Calc 34.90 ml/min [facility] Estimated GFR (MDRD) Amer 115 mL/min >60 [facility] Comment on above: GFR Calc Estimated GFR (MDRD) Non-Af Amer 95 mL/min >60 [facility] Comment on above: Non- GFR Calc Platelets bldOrdered By: Maribeth Lundy on 02-06-2023 Platelets (Bld) [#/Vol] 227 10*3/uL 150-450 [facility] Serum or plasma calcium taylor urement (mass/volume)Ordered By: Darline Lundy on 02-06-2023 Calcium [Mass/Vol] 7.9 mg/dL 8.5-10.1 [facility] Serum or plasma creatinine m easurement (mass/volume)Ordered By: Darline Lundy on 02-06-2023 Creatinine [Mass/Vol] 0.64 mg/dL 0.55-1.[address] [facility] Comment on above: The validity of the calculated GFR & GFRAA in patients over 70 years has not been determined. Clinical correlation is essential. Serum or plasma urea nitroge n measurement (mass/volume)Ordered By: Darline Lundy on 02-06-2023 Urea nitrogen [Mass/Vol] 16 mg/dL 7-18 [facility] Thin prep Papanicolaou smear with manual screeningOrdered By: Darline Lundy on 02-06-2023 Thin prep Papanicolaou smear with manual screening 3 5-15 [facility] Blood manual differential co mment interpretation (narrative result)Ordered By: Darline Lundy on 02-03-2023 Manual differential comment Enrique (Bld) [Interp] SCANNED [facility] Hypochromatic red blood cell detectionOrdered By: Darline Lundy on 02-03-2023 Hypochromia Ql (Bld) 1+ [facility] Review by pathologistOrdered By: Darline Lundy on 02-03-2023 Pathologist review Enrique (Unsp spec) [Interp] Reviewed [facility] Comment on above: Previous reported re sult: Francine keating Edited by: RGOOD on 02/03/23:1313Severe Normocytic anemia.Clinical correlation necessary.Lucas Smith M.D. 02/03/23 AMENDED REPORT 02/03/231312 PATH REV previously reported as: Francine keating Basophil percentageOrdered B y: Jasmin Ivette on 02-02-2023 Bilirubin [Mass/Vol] 1.10 mg/dL 0.20-1.00 [facility] Comment on above: For patients on eltr ombopag therapy, use of Dimension [place] TBIL is not recommended. Protein [Mass/Vol] 5.6 g/dL 6.4-8.2 [facility] Laboratory - Chemistry and C hemistry - challengeOrdered By: Jasmin Steele on 02-02-2023 ALP [Catalytic activity/Vol] 51 U/L 45-117 [facility] ALT [Catalytic activity/Vol] 7 U/L 13-56 [facility] Globulin (S) [Mass/Vol] 2.8 g/dL 2.2-4.2 [facility] No Panel InformationOrdered By: Davian Grier on 02-02-2023 Vitamin D 25-Hydroxy 34.0 ng/mL [facility] Comment on above: Vitamin D 25(OH) Sta tus Range Deficiency <20 ng/mL (50nmol/L) Insufficiency 20 - 30 ng/mL (50 - 75 nmol/L) Sufficiency 30 - 100 ng/mL (75 - 250 nmol/L) Toxicity >100 ng/mL (>250 nmol/L) Serum or plasma albumin taylor urement (mass/volume)Ordered By: Jasmin Steele on 02-02-2023 Albumin [Mass/Vol] 2.8 g/dL 3.2-5.0 [facility] Serum or plasma albumin/glob ulin mass ratioOrdered By: Jasmin White on 02-02-2023 Albumin/Globulin [Mass ratio] 1.0 {ratio} 0.9-2.4 [facility] Thin prep Papanicolaou smear with manual screeningOrdered By: Jasmin White on 02-02-2023 Thin prep Papanicolaou smear with manual screening 16 U/L 15-37 [facility] Absolute lymphocyte countOrd ered By: Niko Lorenz on 02-01-2023 Lymphocytes Auto (Unsp spec) [#/Vol] 1.35 10*3/uL 0.83-4.51 [facility] Basophil percentageOrdered B y: Niko Lorenz on 02-01-2023 Basophils/100 WBC (Bld) 1.0 % 0-1 [facility] Chloride [Moles/Vol] 107 mmol/L 98-107 [facility] Eosinophils/100 WBC (Bld) 1.7 % 0-5 [facility] Glucose [Mass/Vol] 98 mg/dL 74-106 [facility] Neutrophils (Bld) [#/Vol] 2.9 10*3/uL 2.0-7.7 [facility] Neutrophils/100 WBC (Bld) 60.2 % 47-70 [facility] Potassium [Moles/Vol] 4.2 mmol/L 3.5-5.[address] [facility] Sodium [Moles/Vol] 141 mmol/L 136-145 [facility] WBC (Bld) [#/Vol] 4.8 10*3/uL 4.4-11.0 [facility] Blood erythrocytes count (nu mber/volume)Ordered By: Niko Lorenz on 02-01-2023 RBC (Bld) [#/Vol] 3.93 10*6/uL 4.2-5.4 [facility] Blood hemoglobin measurement (mass/volume)Ordered By: Niko Lorenz on 02-01-2023 Hemoglobin (Bld) [Mass/Vol] 10.8 g/dL 12.0-15.0 [facility] Blood lymphocytes/100 leukoc ytesOrdered By: Niko Lorenz on 02-01-2023 Lymphocytes/100 WBC (Bld) 28.0 % 19-41 [facility] Blood monocytes/100 leukocyt esOrdered By: Niko Lorenz on 02-01-2023 Monocytes/100 WBC (Bld) 8.9 % 0-10 [facility] Blood platelet mean volumeOr dered By: Niko Lorenz on 02-01-2023 Platelet mean volume (Bld) [Entitic vol] 8.7 fL 6.2-12.0 [facility] Determination of erythrocyte mean corpuscular volume (MCV)Ordered By: Niko Lorenz on 02-01-2023 MCV (RBC) [Entitic vol] 89.6 fL 81-99 [facility] Glucose Glucometer (dC) [M ass/Vol]Ordered By: Darline Lundy on 02-01-2023 Glucose [Mass/Vol] 99 mg/dL 74-106 [facility] Comment on above: MANAGEMENT OF PATIEN T CARE PER NURSING PROTOCOL Hematocrit Auto (Bld) [Volum e fraction]Ordered By: Niko Lorenz on 02-01-2023 Hematocrit (Bld) [Volume fraction] 35.2 % 37-47 [facility] INR in Blood by Coagulation assayOrdered By: Niko Lorenz on 02-01-2023 INR Coag (Bld) [Relative time] 1.2 {INR} [facility] Laboratory - Chemistry and C hemistry - challengeOrdered By: Niko Loernz on 02-01-2023 CO2 [Moles/Vol] 30.0 mmol/L 21.0-32.0 [facility] Urea nitrogen/Creatinine [Mass ratio] 18.8 mg/mg 10-20 [facility] Laboratory - Chemistry and C hemistry - challengeOrdered By: Jasmin Steele on 02-01-2023 Natriuretic peptide B (Bld) [Mass/Vol] 145.2 pg/mL 0-100 [facility] Laboratory - CoagulationOrde red By: Niko Lorenz on 02-01-2023 PT Coag (PPP) [Time] 14.8 s 11.7-14.9 [facility] Laboratory - Hematology and Cell countsOrdered By: Niko Lorenz on 02-01-2023 Erythrocyte distribution width (RBC) [Entitic vol] 41.8 fL 35.1-43.9 [facility] Erythrocyte distribution width (RBC) [Ratio] 12.6 % 11.6-14.6 [facility] Immature granulocytes/100 WBC (Bld) 0.200 % 0.0-0.9 [facility] Comment on above: IG% - Immature Granu locytes (promyelocytes, myelocytes and metamyelocytes) > 1% indicates that a LEFT SHIFT is Present. MCH (RBC) [Entitic mass] 27.5 pg 27.0-32.0 [facility] Nucleated RBC/100 WBC (Bld) [Ratio] 0 % 0-5 [facility] MCHC Auto (RBC) [Mass/Vol]Or dered By: Niko Lorenz on 02-01-2023 MCHC (RBC) [Mass/Vol] 30.7 g/dL 32-[address] [facility] No Panel InformationOrdered By: Niko Lorenz on 02-01-2023 Estimated Creatinine Clearance Calc 41.05 ml/min [facility] Estimated GFR (MDRD) Amer 83 mL/min >60 [facility] Comment on above: GFR Calc Estimated GFR (MDRD) Non-Af Amer 68 mL/min >60 [facility] Comment on above: Non- GFR Calc Platelets bldOrdered By: Alina Lorenz on 02-01-2023 Platelets (Bld) [#/Vol] 255 10*3/uL 150-450 [facility] Serum or plasma calcium taylor urement (mass/volume)Ordered By: Niko Lorenz on 02-01-2023 Calcium [Mass/Vol] 8.6 mg/dL 8.5-10.1 [facility] Serum or plasma creatinine m easurement (mass/volume)Ordered By: Niko Lorenz on 02-01-2023 Creatinine [Mass/Vol] 0.85 mg/dL 0.55-1.[address] [facility] Comment on above: The validity of the calculated GFR & GFRAA in patients over 70 years has not been determined. Clinical correlation is essential. Serum or plasma urea nitroge n measurement (mass/volume)Ordered By: Niko Lorenz on 02-01-2023 Urea nitrogen [Mass/Vol] 16 mg/dL 7-18 [facility] Thin prep Papanicolaou smear with manual screeningOrdered By: Niko Lorenz on 02-01-2023 Thin prep Papanicolaou smear with manual screening 4 5-15 [facility] Basophil percentageOrdered B y: Danielle Vernon on 01-05-2023 Chloride [Moles/Vol] 107 mmol/L 98-107 [facility] Glucose [Mass/Vol] 95 mg/dL 74-106 [facility] Potassium [Moles/Vol] 4.3 mmol/L 3.5-5.[address] [facility] Sodium [Moles/Vol] 139 mmol/L 136-145 [facility] Laboratory - Chemistry and C hemistry - challengeOrdered By: Danielle Vernon on 01-05-2023 CO2 [Moles/Vol] 28.0 mmol/L 21.0-32.0 [facility] Urea nitrogen/Creatinine [Mass ratio] 17.8 mg/mg 10-20 [facility] No Panel InformationOrdered By: Danielle Vernon on 01-05-2023 Estimated GFR (MDRD) Amer 68 mL/min >60 [facility] Comment on above: GFR Calc Estimated GFR (MDRD) Non-Af Amer 56 mL/min >60 [facility] Comment on above: Non- GFR Calc Serum or plasma calcium taylor urement (mass/volume)Ordered By: Danielle Vernon on 01-05-2023 Calcium [Mass/Vol] 8.8 mg/dL 8.5-10.1 [facility] Serum or plasma creatinine m easurement (mass/volume)Ordered By: Danielle Vernon on 01-05-2023 Creatinine [Mass/Vol] 1.01 mg/dL 0.55-1.[address] [facility] Comment on above: The validity of the calculated GFR & GFRAA in patients over 70 years has not been determined. Clinical correlation is essential. Serum or plasma urea nitroge n measurement (mass/volume)Ordered By: Danielle Vernon on 01-05-2023 Urea nitrogen [Mass/Vol] 18 mg/dL 7-18 [facility] Thin prep Papanicolaou smear with manual screeningOrdered By: Danielle Veronn on 01-05-2023 Thin prep Papanicolaou smear with manual screening 4 5-15 [facility] Absolute lymphocyte counton 12-14-2022 Lymphocytes Auto (Unsp spec) [#/Vol] 1.71 10*3/uL 0.83-4.51 [facility] Work Phone: Basophil percentageon 2021 Basophils/100 WBC (Bld) 0.8 % 0-1 [facility] Work Phone: Bilirubin [Mass/Vol] 0.60 mg/dL 0.20-1.00 [facility] Work Phone: Comment on above: For patients on eltr ombopag therapy, use of Dimension [place] TBIL is not recommended. Chloride [Moles/Vol] 106 mmol/L 98-107 [facility] Work Phone: Cholesterol [Mass/Vol] 171 mg/dL <200 [facility] Work Phone: Comment on above: <200 mg/dL Desirable 200-240 mg/dL Borderline >240 mg/dL High Risk Eosinophils/100 WBC (Bld) 1.8 % 0-5 [facility] Work Phone: Glucose [Mass/Vol] 93 mg/dL 74-106 [facility] Work Phone: Neutrophils (Bld) [#/Vol] 2.5 10*3/uL 2.0-7.7 [facility] Work Phone: Neutrophils/100 WBC (Bld) 51.0 % 47-70 [facility] Work Phone: Potassium [Moles/Vol] 4.6 mmol/L 3.5-5.[address] [facility] Work Phone: Protein [Mass/Vol] 7.3 g/dL 6.4-8.2 [facility] Work Phone: Sodium [Moles/Vol] 139 mmol/L 136-145 [facility] Work Phone: Triglyceride [Mass/Vol] 76 mg/dL <199 [facility] Work Phone: Comment on above: The drugs N-Acetylcy steine and Metamizole may falsely depress this assay.Serum Triglycerides Reference Interval Normal <150 mg/dL Borderline high 150 - 199 mg/dL High 200 - 499 mg/dL Very High > or = 500 mg/dL WBC (Bld) [#/Vol] 5.0 10*3/uL 4.4-11.0 [facility] Work Phone: Blood erythrocytes count (nu mber/volume)on 2022 RBC (Bld) [#/Vol] 4.37 10*6/uL 4.2-5.4 [facility] Work Phone: [phone] Blood hemoglobin measurement (mass/volume)on 2022 Hemoglobin (Bld) [Mass/Vol] 11.9 g/dL 12.0-15.0 [facility] Work Phone: [phone] Blood lymphocytes/100 leukoc yteson 2022 Lymphocytes/100 WBC (Bld) 34.5 % 19-41 [facility] Work Phone: [phone] Blood monocytes/100 leukocyt eson 2022 Monocytes/100 WBC (Bld) 11.7 % 0-10 [facility] Work Phone: [phone] Blood platelet mean volumeon 2022 Platelet mean volume (Bld) [Entitic vol] 9.1 fL 6.2-12.0 [facility] Work Phone: [phone] Determination of erythrocyte mean corpuscular volume (MCV)on 2022 MCV (RBC) [Entitic vol] 88.3 fL 81-99 [facility] Work Phone: [phone] Hematocrit Auto (Bld) [Volum e fraction]on 2022 Hematocrit (Bld) [Volume fraction] 38.6 % 37-47 [facility] Work Phone: Laboratory - Chemistry and C hemistry - challengeon 2022 ALP [Catalytic activity/Vol] 71 U/L 45-117 [facility] Work Phone: [phone] ALT [Catalytic activity/Vol] 16 U/L 13-56 [facility] Work Phone: CO2 [Moles/Vol] 28.0 mmol/L 21.0-32.0 [facility] Work Phone: Globulin (S) [Mass/Vol] 3.6 g/dL 2.2-4.2 [facility] Work Phone: Urea nitrogen/Creatinine [Mass ratio] 22.8 mg/mg 10-20 [facility] Work Phone: Bilirubin Ql (U) Small (1+) [facility] Work Phone: [phone] Glucose Ql (U) Negative [facility] Work Phone: [phone] Ketones Ql (U) Small (15+) [facility] Work Phone: [phone] pH (U) 6.5 [pH] [facility] Work Phone: [phone] Specific gravity (U) [Rel density] 1.025 [facility] Work Phone: [phone] Urobilinogen (U) [Mass/Vol] 1 mg/dL [facility] Work Phone: Laboratory - Hematology and Cell countson 2022 Erythrocyte distribution width (RBC) [Entitic vol] 41.6 fL 35.1-43.9 [facility] Work Phone: Erythrocyte distribution width (RBC) [Ratio] 12.7 % 11.6-14.6 [facility] Work Phone: Immature granulocytes/100 WBC (Bld) 0.200 % 0.0-0.9 [facility] Work Phone: Comment on above: IG% - Immature Granu locytes (promyelocytes, myelocytes and metamyelocytes) > 1% indicates that a LEFT SHIFT is Present. MCH (RBC) [Entitic mass] 27.2 pg 27.0-32.0 [facility] Work Phone: Nucleated RBC/100 WBC (Bld) [Ratio] 0 % 0-5 [facility] Work Phone: Hemoglobin Ql (U) Negative [facility] Work Phone: Laboratory - Specimen inform ationon 2022 Clarity (U) Clear [facility] Work Phone: Color (U) STRAW [facility] Work Phone: Laboratory - Urinalysison Nitrite Ql (U) Negative [facility] Work Phone: Protein Ql (U) Trace [facility] Work Phone: MCHC Auto (RBC) [Mass/Vol]on 2022 MCHC (RBC) [Mass/Vol] 30.8 g/dL 32-[address] [facility] Work Phone: No Panel Informationon 03-26 Estimated GFR (MDRD) Amer 68 mL/min >60 [facility] Work Phone: Comment on above: GFR Calc Estimated GFR (MDRD) Non-Af Amer 56 mL/min >60 [facility] Work Phone: Comment on above: Non- GFR Calc Thyroid Stimulating Hormone (TSH) 2.51 uIU/mL 0.358-3.74 [facility] Work Phone: Urine Leukocytes Negatve [facility] Work Phone: Urine Non-Hemolyzed Blood [facility] Work Phone: Platelets bldon 2022 Platelets (Bld) [#/Vol] 311 10*3/uL 150-450 [facility] Work Phone: Serum or plasma albumin taylor urement (mass/volume)on 2022 Albumin [Mass/Vol] 3.7 g/dL 3.2-5.0 [facility] Work Phone: Serum or plasma albumin/glob ulin mass ratioon 2022 Albumin/Globulin [Mass ratio] 1.0 {ratio} 0.9-2.4 [facility] Work Phone: Serum or plasma calcium taylor urement (mass/volume)on 2022 Calcium [Mass/Vol] 9.0 mg/dL 8.5-10.1 [facility] Work Phone: Serum or plasma cholesterol in HDL measurement (mass/volume)on 2022 Cholesterol in HDL [Mass/Vol] 100 mg/dL >40 [facility] Work Phone: Comment on above: The drugs N-Acetylcy steine and Metamizole may falsely depress this assay. Reference Range HDL <40 mg/dL Low HDL Cholesterol HDL >or= 60 mg/dL High HDL Cholesterol Serum or plasma cholesterol in VLDL measurement (mass/volume)on 2022 Cholesterol in VLDL [Mass/Vol] 15 mg/dL 5-40 [facility] Work Phone: Serum or plasma creatinine m easurement (mass/volume)on 2022 Creatinine [Mass/Vol] 1.01 mg/dL 0.55-1.[address] [facility] Work Phone: Comment on above: The validity of the calculated GFR & GFRAA in patients over 70 years has not been determined. Clinical correlation is essential. Serum or plasma low density lipoprotein (LDL) cholesterol measurement (mass/volume)on 2022 Cholesterol in LDL [Mass/Vol] 56 mg/dL 0-130 [facility] Work Phone: Serum or plasma urea nitroge n measurement (mass/volume)on 2022 Urea nitrogen [Mass/Vol] 23 mg/dL 7-18 [facility] Work Phone: [phone] Serum or plasma uric acid me asurement (mass/volume)on 2022 Urate [Mass/Vol] 3.8 mg/dL 2.6-6.0 [facility] Work Phone: Comment on above: The drugs N-Acetylcy steine and Metamizole may falsely depress this assay. Thin prep Papanicolaou smear with manual screeningon 2022 Thin prep Papanicolaou smear with manual screening 27 U/L 15-37 [facility] Work Phone: Thin prep Papanicolaou smear with manual screening 5 5-15 [facility] Work Phone: Vital Signs Date Time Vital Sign Value Performing Clinician Juanis wilson 09-27-2024 08:22-0400 Body height 157.48 cm Didi Lujan RETAIL SPECIAL EVENT ASSOCIATE-C Work Phone: [facility] 09-27-2024 08:22-0400 Body mass index (BMI) [Ratio] 29.4 kg/m2 Didi Lujan RETAIL SPECIAL EVENT ASSOCIATE-C Work Phone: [facility] 09-27-2024 08:22-0400 Body weight 73.02 kg Didi Lujan RETAIL SPECIAL EVENT ASSOCIATE-C Work Phone: [facility] 09-27-2024 08:22-0400 Diastolic blood pressure 72 mm[Hg] Didi Lujan RETAIL SPECIAL EVENT ASSOCIATE-C Work Phone: [facility] 09-27-2024 08:22-0400 Heart rate 72 /min Didi Lujan RETAIL SPECIAL EVENT ASSOCIATE-C Work Phone: [facility] 09-27-2024 08:22-0400 Respiratory rate 16 /min Didi Lujan RETAIL SPECIAL EVENT ASSOCIATE-C Work Phone: [facility] 09-27-2024 08:22-0400 Systolic blood pressure 125 mm[Hg] Didi Lujan RETAIL SPECIAL EVENT ASSOCIATE-C Work Phone: [facility] 07-29-2024 14:17-0400 Diastolic blood pressure 65 mm[Hg] Armen Madison MD Work Phone: [facility] 07-29-2024 14:17-0400 Heart rate 68 /min Armen Madison MD Work Phone: [facility] 07-29-2024 14:17-0400 Systolic blood pressure 110 mm[Hg] Armen Madison MD Work Phone: [facility] 06-28-2024 07:42-0400 Body height 157.5 cm Em Sheldon Work Phone: [facility] 06-28-2024 07:42-0400 Body mass index (BMI) [Ratio] 28.42 kg/m2 Em Flynn APRN.CEMENTER MACHINE Work Phone: [facility] 06-28-2024 07:42-0400 Body weight 70.49 kg Em Flynn APRN.CN P Work Phone: [facility] Comment on above: Per pt. Did not get weighed today 06-28-2024 07:42-0400 Diastolic blood pressure 74 mm[Hg] Em Flynn APRN.CEMENTER MACHINE Work Phone: [facility] 06-28-2024 07:42-0400 Heart rate 76 /min Em Flynn APRN.CN P Work Phone: [facility] 06-28-2024 07:42-0400 SaO2% (BldA) [Mass fraction] 99 % Em Flynn APRN.CEMENTER MACHINE Work Phone: [facility] 06-28-2024 07:42-0400 Systolic blood pressure 112 mm[Hg] Em Flynn APRN.CEMENTER MACHINE Work Phone: [facility] 03-16-2024 08:37-0500 Body height 157.48 cm Alexandra Arreguin RETAIL SPECIAL EVENT ASSOCIATE-C Work Phone: [facility] 03-16-2024 08:37-0500 Body mass index (BMI) [Ratio] 28.7 kg/m2 Alexandra Arreguin RETAIL SPECIAL EVENT ASSOCIATE-C Work Phone: [facility] 03-16-2024 08:37-0500 Body weight 71.21 kg Alexandra Arreguin RETAIL SPECIAL EVENT ASSOCIATE-C Work Phone: [facility] 03-16-2024 08:37-0500 Diastolic blood pressure 62 mm[Hg] Alexandra Arreguin RETAIL SPECIAL EVENT ASSOCIATE-C Work Phone: [facility] 03-16-2024 08:37-0500 Heart rate 59 /min Alexandra Arreguin RETAIL SPECIAL EVENT ASSOCIATE-C Work Phone: [facility] 03-16-2024 08:37-0500 Respiratory rate 18 /min Alexandrajenny MccollumArreguin RETAIL SPECIAL EVENT ASSOCIATE-C Work Phone: [facility] 03-16-2024 08:37-0500 Systolic blood pressure 97 mm[Hg] Alexandra Mccollumson RETAIL SPECIAL EVENT ASSOCIATE-C Work Phone: [facility] 12-31-2023 09:11-0400 Body height 157.5 cm Em Flynn APRN.CN P Work Phone: [facility] 12-31-2023 09:11-0400 SaO2% (BldA) [Mass fraction] 99 % Em Flynn APRN.CEMENTER MACHINE Work Phone: [facility] 09-29-2023 08:59-0400 Body height 157.5 cm Em Flynn APRN.CN P Work Phone: [facility] 09-29-2023 08:59-0400 Body mass index (BMI) [Ratio] 29.81 kg/m2 Em Flynn APRN.CEMENTER MACHINE Work Phone: [facility] 09-29-2023 08:59-0400 Body weight 73.94 kg Em Flynn APRN.CN P Work Phone: [facility] Comment on above: Per pt. Did not get weighed 09-29-2023 08:59-0400 Diastolic blood pressure 69 mm[Hg] Em Flynn APRN.CEMENTER MACHINE Work Phone: [facility] 09-29-2023 08:59-0400 Heart rate 58 /min Em Flynn APRN.CN P Work Phone: [facility] 09-29-2023 08:59-0400 SaO2% (BldA) [Mass fraction] 98 % Em Flynn APRN.CEMENTER MACHINE Work Phone: [facility] 09-29-2023 08:59-0400 Systolic blood pressure 106 mm[Hg] Em Flynn APRN.CEMENTER MACHINE Work Phone: [facility] 08-27-2023 13:39-0400 Body height 157.5 cm Marie GODINEZC Work Phone: [facility] 08-27-2023 13:39-0400 Body mass index (BMI) [Ratio] 30.12 kg/m2 Marie Ramirez PA-C Work Phone: [facility] 08-27-2023 13:39-0400 Body weight 74.7 kg Marie Ramirez PA-C Work Phone: [facility] 08-27-2023 13:39-0400 Diastolic blood pressure 57 mm[Hg] Marie LY-C Work Phone: [facility] 08-27-2023 13:39-0400 Heart rate 60 /min Marie Ramirez PA-C Work Phone: [facility] 08-27-2023 13:39-0400 Respiratory rate 18 /min Marie Ramirez PA-C Work Phone: [facility] 08-27-2023 13:39-0400 SaO2% (BldA) [Mass fraction] 100 % Marie LY-C Work Phone: [facility] 08-27-2023 13:39-0400 Systolic blood pressure 130 mm[Hg] Marie Ramirez PA-C Work Phone: [facility] 07-06-2023 08:13-0400 Body weight 73.94 kg Em Flynn APRN.CN P Work Phone: [facility] 07-06-2023 08:13-0400 Diastolic blood pressure 82 mm[Hg] Em Flynn APRN.CEMENTER MACHINE Work Phone: [facility] 07-06-2023 08:13-0400 Heart rate 72 /min Em Flynn APRN.CN P Work Phone: [facility] 07-06-2023 08:13-0400 SaO2% (BldA) [Mass fraction] 99 % Em Flynn APRN.CEMENTER MACHINE Work Phone: [facility] 07-06-2023 08:13-0400 Systolic blood pressure 128 mm[Hg] Em Flynn APRN.CEMENTER MACHINE Work Phone: [facility] 05-01-2023 18:05-0500 Diastolic blood pressure 69 mm[Hg] RETAIL SPECIAL EVENT ASSOCIATE-C Alexandra Arreguin RETAIL SPECIAL EVENT ASSOCIATE Work Phone: [facility] 05-01-2023 18:05-0500 Heart rate 67 /min RETAIL SPECIAL EVENT ASSOCIATE-C Alexandra Arreguin RETAIL SPECIAL EVENT ASSOCIATE Work Phone: [facility] 05-01-2023 18:05-0500 Respiratory rate 16 /min RETAIL SPECIAL EVENT ASSOCIATE-C Alexandra Arreguin RETAIL SPECIAL EVENT ASSOCIATE Work Phone: [facility] 05-01-2023 18:05-0500 SaO2% (BldA) [Mass fraction] 98 % RETAIL SPECIAL EVENT ASSOCIATE-C Alexandra Arreguin RETAIL SPECIAL EVENT ASSOCIATE Work Phone: [facility] 05-01-2023 18:05-0500 Systolic blood pressure 120 mm[Hg] RETAIL SPECIAL EVENT ASSOCIATE-C Alexandra Arreguin RETAIL SPECIAL EVENT ASSOCIATE Work Phone: [facility] 05-01-2023 13:26-0500 Body height 157.48 cm RETAIL SPECIAL EVENT ASSOCIATE-C Alexandra Arreguin RETAIL SPECIAL EVENT ASSOCIATE Work Phone: [facility] 05-01-2023 13:26-0500 Body mass index (BMI) [Ratio] 30.2 kg/m2 RETAIL SPECIAL EVENT ASSOCIATE-C Alexandra Arreguin RETAIL SPECIAL EVENT ASSOCIATE Work Phone: [facility] 05-01-2023 13:26-0500 Body temperature 98.4 [degF] RETAIL SPECIAL EVENT ASSOCIATE-C Alexandra Arreguin RETAIL SPECIAL EVENT ASSOCIATE Work Phone: [facility] 05-01-2023 13:26-0500 Body weight 74.84 kg RETAIL SPECIAL EVENT ASSOCIATE-C Alexandra Arreguin RETAIL SPECIAL EVENT ASSOCIATE Work Phone: [facility] 02-06-2023 13:59-0400 Body temperature 98.6 [degF] RETAIL SPECIAL EVENT ASSOCIATE-C Alexandra Arreguin RETAIL SPECIAL EVENT ASSOCIATE Work Phone: [facility] 02-06-2023 13:59-0400 Diastolic blood pressure 52 mm[Hg] RETAIL SPECIAL EVENT ASSOCIATE-C Alexandra Arreguin RETAIL SPECIAL EVENT ASSOCIATE Work Phone: 3(648)[phone] [place] [address] 02-06-2023 13:59-0400 Heart rate 73 /min RETAIL SPECIAL EVENT ASSOCIATE-C Alexandra Arreguin RETAIL SPECIAL EVENT ASSOCIATE Work Phone: 7(822)553-999724 [place] [address] 02-06-2023 13:59-0400 Respiratory rate 16 /min RETAIL SPECIAL EVENT ASSOCIATE-C Alexandra Arreguin RETAIL SPECIAL EVENT ASSOCIATE Work Phone: 0(754)300-055624 [place] [address] 02-06-2023 13:59-0400 SaO2% (BldA) [Mass fraction] 100 % RETAIL SPECIAL EVENT ASSOCIATE-C Alexandra Arreguin RETAIL SPECIAL EVENT ASSOCIATE Work Phone: 3(469)266-878424 [place] [address] 02-06-2023 13:59-0400 Systolic blood pressure 92 mm[Hg] RETAIL SPECIAL EVENT ASSOCIATE-C Alexandra Arreguin RETAIL SPECIAL EVENT ASSOCIATE Work Phone: 8(536)424-918824 [place] [address] 02-06-2023 05:46-0400 Body mass index (BMI) [Ratio] 31.1 kg/m2 RETAIL SPECIAL EVENT ASSOCIATE-C Alexandra Arreguin RETAIL SPECIAL EVENT ASSOCIATE Work Phone: 6(322)940-317924 [place] [address] 02-06-2023 05:46-0400 Body weight 76.6 kg RETAIL SPECIAL EVENT ASSOCIATE-C Alexandra Arreguin RETAIL SPECIAL EVENT ASSOCIATE Work Phone: 1(210)867-913624 [place] [address] 02-02-2023 11:48-0400 Body height 157.48 cm RETAIL SPECIAL EVENT ASSOCIATE-C Alexandra Arreguin RETAIL SPECIAL EVENT ASSOCIATE Work Phone: 1(866)820-013424 [place] [address] 02-01-2023 13:44-0400 Body height 157.48 cm RETAIL SPECIAL EVENT ASSOCIATE-C Alexandra Arreguin RETAIL SPECIAL EVENT ASSOCIATE Work Phone: 0(169)477-876524 [place] [address] 02-01-2023 13:44-0400 Body mass index (BMI) [Ratio] 31.1 kg/m2 RETAIL SPECIAL EVENT ASSOCIATE-C Alexandra Arreguin RETAIL SPECIAL EVENT ASSOCIATE Work Phone: 4(933)963-821224 [place] [address] 02-01-2023 13:44-0400 Body temperature 98.4 [degF] RETAIL SPECIAL EVENT ASSOCIATE-C Alexandra Arreguin RETAIL SPECIAL EVENT ASSOCIATE Work Phone: 4(082)221-490481 [place] [address] 02-01-2023 13:44-0400 Body weight 77.1 kg RETAIL SPECIAL EVENT ASSOCIATE-C Alexandra Arreguin RETAIL SPECIAL EVENT ASSOCIATE Work Phone: 2(298)405-612481 [place] [address] 02-01-2023 13:44-0400 Diastolic blood pressure 79 mm[Hg] RETAIL SPECIAL EVENT ASSOCIATE-C Alexandra Arreguin RETAIL SPECIAL EVENT ASSOCIATE Work Phone: [facility] 02-01-2023 13:44-0400 Heart rate 77 /min RETAIL SPECIAL EVENT ASSOCIATE-C Alexandra Arreguin RETAIL SPECIAL EVENT ASSOCIATE Work Phone: [facility] 02-01-2023 13:44-0400 Respiratory rate 20 /min RETAIL SPECIAL EVENT ASSOCIATE-C Alexandra Arreguin RETAIL SPECIAL EVENT ASSOCIATE Work Phone: [facility] 02-01-2023 13:44-0400 SaO2% (BldA) [Mass fraction] 99 % RETAIL SPECIAL EVENT ASSOCIATE-C Alexandra Arreguin RETAIL SPECIAL EVENT ASSOCIATE Work Phone: [facility] 02-01-2023 13:44-0400 Systolic blood pressure 165 mm[Hg] RETAIL SPECIAL EVENT ASSOCIATE-C Alexandra Arreguin RETAIL SPECIAL EVENT ASSOCIATE Work Phone: [facility] 01-20-2023 14:48-0400 Body height 157.5 cm Em Flynn APRN.CN P Work Phone: [facility] 01-20-2023 14:48-0400 Body weight 70.76 kg Em Flynn APRN.CN P Work Phone: [facility] 01-20-2023 14:48-0400 SaO2% (BldA) [Mass fraction] 100 % Em Flynn APRN.CEMENTER MACHINE Work Phone: [facility] 12-29-2022 13:39-0400 Body mass index (BMI) [Ratio] 28 kg/m2 RETAIL SPECIAL EVENT ASSOCIATE-C Alexandra Arreguin RETAIL SPECIAL EVENT ASSOCIATE Work Phone: [facility] 12-29-2022 13:39-0400 Body weight 69.39 kg RETAIL SPECIAL EVENT ASSOCIATE-C Alexandra Arreguin RETAIL SPECIAL EVENT ASSOCIATE Work Phone: [facility] 12-29-2022 13:39-0400 Diastolic blood pressure 78 mm[Hg] RETAIL SPECIAL EVENT ASSOCIATE-C Alexandra Arreguin RETAIL SPECIAL EVENT ASSOCIATE Work Phone: [facility] 12-29-2022 13:39-0400 Heart rate 60 /min RETAIL SPECIAL EVENT ASSOCIATE-C Alexandra Arreguin RETAIL SPECIAL EVENT ASSOCIATE Work Phone: [facility] 12-29-2022 13:39-0400 Respiratory rate 16 /min RETAIL SPECIAL EVENT ASSOCIATE-Mariajose Arreguin RETAIL SPECIAL EVENT ASSOCIATE Work Phone: [facility] 12-29-2022 13:39-0400 Systolic blood pressure 152 mm[Hg] RETAIL SPECIAL EVENT ASSOCIATE-Mariajose Arreguin RETAIL SPECIAL EVENT ASSOCIATE Work Phone: [facility] 10-09-2022 12:48-0400 Body height 157.5 cm Linden Flynn MD Work Phone: [facility] 10-09-2022 12:48-0400 Body weight 68.63 kg Linden Flynn MD Work Phone: [facility] 10-09-2022 12:48-0400 SaO2% (BldA) [Mass fraction] 99 % Linden Flynn MD Work Phone: [facility] 2022 14:59-0500 Body height 157.48 cm [facility] Work Phone: 2022 14:59-0500 Body mass index (BMI) [Ratio] 25.2 kg/m2 [facility] Work Phone: 2022 14:59-0500 Body temperature 97.7 [degF] [facility] Work Phone: 2022 14:59-0500 Body weight 62.59 kg [facility] Work Phone: 2022 14:59-0500 Diastolic blood pressure 70 mm[Hg] [facility] Work Phone: 2022 14:59-0500 Heart rate 138 /min [facility] Work Phone: 2022 14:59-0500 Respiratory rate 18 /min [facility] Work Phone: 2022 14:59-0500 SaO2% (BldA) [Mass fraction] 100 % [facility] Work Phone: 2022 14:59-0500 Systolic blood pressure 130 mm[Hg] [facility] Work Phone: 02-24-2022 16:15-0500 Body mass index (BMI) [Ratio] 25.6 kg/m2 [facility] Work Phone: 02-24-2022 16:15-0500 Body temperature 97.5 [degF] [facility] Work Phone: 02-24-2022 16:15-0500 Body weight 63.5 kg [facility] Work Phone: 02-24-2022 16:15-0500 Diastolic blood pressure 60 mm[Hg] [facility] Work Phone: 02-24-2022 16:15-0500 Heart rate 85 /min [facility] Work Phone: 02-24-2022 16:15-0500 Respiratory rate 18 /min [facility] Work Phone: 02-24-2022 16:15-0500 SaO2% (BldA) [Mass fraction] 100 % [facility] Work Phone: 02-24-2022 16:15-0500 Systolic blood pressure 122 mm[Hg] [facility] Work Phone: Encounters Encounter Date Encounter Type Care Provider Facility Start: 09-27-2024 End: 09-27-[address] Danielle Vernon MD -[facility] Work Phone: Start: 09-27-2024 End: 09-27-2024 ambulatory Didi OSMAN Work Phone: [facility] Work Phone: Start: 07-29-2024 End: 07-29-2024 ambulatory ARMEN MADISON Facility:[facility] Start: 07-29-2024 End: 07-29-2024 Office outpatient new 30 minutes Armen Madison MD Work Phone: [facility] Comment on above: Numbness and tinglin g of both feet Start: 07-29-2024 End: 07-29-2024 ambulatory ARMEN MADISON Facility:[facility] Start: 06-28-2024 End: 06-28-2024 ambulatory EM FLYNN Facility:[facility] Start: 06-28-2024 End: 06-28-2024 Patient encounter procedure Em Flynn APRN.CEMENTER MACHINE Work Phone: Neurology Comment on above: Dysphagia, unspecifi ed type (Primary Dx); 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 Danielle Vernon MD -[facility] Work Phone: Start: 03-16-2024 End: 03-16-2024 ambulatory Danielle Vernon Facility:[facility] Start: 12-31-2023 End: 12-31-2023 ambulatory EM FLYNN Facility:[facility] Start: 12-31-2023 End: 12-31-2023 Patient encounter procedure Em Flynn APRN.CEMENTER MACHINE Work Phone: Neurology Comment on above: Dysphagia, unspecifi ed type (Primary Dx); Parkinson's disease without dyskinesia or fluctuating manifestations (HCC); Orthostatic hypotension Start: 11-20-2023 Documentation procedure Mammog dae Coordinator [facility] Department Start: 11-20-2023 Letter encounter Mammography Coordinator [facility] Department Start: 11-20-2023 End: 11-20-2023 ambulatory ALEXANDRA ARREGUIN Facility:[facility] Start: 11-20-2023 End: 11-20-2023 Subsequent hospital visit by physician Screening Ultrasound Main Work Phone: Mammography Start: 10-21-2023 Telephone encounter Marie juan PA-C Work Phone: [facility] [place] Comment on above: Computer Animator - O ther Start: 10-16-2023 Telephone encounter Laura Jasso MD Work Phone: Orthopaedics Comment on above: Patient Update; Radha ent Question; Orders Start: 10-02-2023 End: 10-02-2023 ambulatory LAURA JASSO Facility:[facility] Start: 10-02-2023 End: 10-02-2023 Patient encounter procedure Laura Jasso MD Work Phone: Orthopedics Comment on above: Acute pain of left s houlder Start: 09-29-2023 End: 09-29-2023 Patient encounter procedure Em Flynn APRN.CEMENTER MACHINE Work Phone: Neurology Comment on above: Parkinson's disease without dyskinesia or fluctuating manifestations (HCC) (Primary Dx); Orthostatic hypotension; Hallucinations; Dysphagia, unspecified type Start: 09-29-2023 End: 09-29-2023 ambulatory UNKNOWN PROVIDER Facility:[facility] Start: 09-29-2023 End: 09-29-2023 Subsequent hospital visit by physician [facility] Work Phone: Radiology Comment on above: Chronic left shoulde r pain [M25.512, G89.29] Start: 09-23-2023 ambulatory DIDI LUJAN Facilit y:[facility] Start: 09-23-2023 End: 09-23-2023 Subsequent hospital visit by physician Screen/Diagnostic Mammo 2 [facility] Work Phone: Mammography Comment on above: Inconclusive mammogr am [R92.2] Start: 09-14-2023 Orders Only Laura Jasso MD Work Phone: Orthopedics Comment on above: Chronic left shoulde r pain (Primary Dx) Start: 09-02-2023 Telephone encounter Marie GODINEZC Work Phone: [facility] Start: 08-27-2023 End: 08-27-2023 ambulatory MARIE RAMIREZ Facility:[facility] Start: 08-27-2023 End: 08-27-2023 Patient encounter procedure Marie Ramirez PA-C Work Phone: [facility] Comment on above: Acute pain of left s houlder (Primary Dx); Protrusion of cervical intervertebral disc; Pain in left elbow Start: 08-14-2023 Documentation procedure Mammog dae Coordinator [facility] Department Start: 08-14-2023 Letter encounter Mammography Coordinator [facility] Department Start: 08-13-2023 ambulatory DIDI LUJAN Facilit y:[facility] Start: 08-13-2023 End: 08-13-2023 Subsequent hospital visit by physician Screen/Diagnostic Mammo 1 [facility] Work Phone: Mammography Comment on above: Encounter for screen ing mammogram for malignant neoplasm of breast [Z12.31] Asymptomatic [place] radha state [Z78.0] Start: 08-03-2023 Telephone encounter Em villarreal SLITTER OPERATOR.CEMENTER MACHINE Work Phone: Neurology Comment on above: Results Start: 07-29-2023 ambulatory ALEXANDRA ARREGUIN Facil ity:[facility] Start: 07-29-2023 End: 07-29-2023 Subsequent hospital visit by physician [facility].5t[facility] Start: 07-06-2023 End: 07-06-2023 Patient encounter procedure Em Flynn APRN.CEMENTER MACHINE Work Phone: Neurology Comment on above: Parkinson's disease without dyskinesia or fluctuating manifestations (HCC) (Primary Dx); Orthostatic hypotension; Dysphagia, unspecified type; Left arm pain; Numbness and tingling in left arm Start: 05-01-2023 End: 05-01-2023 Emergency department patient visit RETAIL SPECIAL EVENT ASSOCIATEAiyana Arreguin RETAIL SPECIAL EVENT ASSOCIATE Work Phone: [facility]-Emergency Department Work Phone: Start: 02-06-2023 Non-patient / Non-visit RETAIL SPECIAL EVENT ASSOCIATE-C D ora Arreguin RETAIL SPECIAL EVENT ASSOCIATE Work Phone: [facility] Work Phone: Start: 02-05-2023 Non-patient / Non-visit RETAIL SPECIAL EVENT ASSOCIATE-C D ora Arreguin RETAIL SPECIAL EVENT ASSOCIATE Work Phone: [facility] Work Phone: Start: 02-04-2023 Non-patient / Non-visit RETAIL SPECIAL EVENT ASSOCIATE-C D ora Arreguin RETAIL SPECIAL EVENT ASSOCIATE Work Phone: [facility] Work Phone: Start: 02-03-2023 Non-patient / Non-visit RETAIL SPECIAL EVENT ASSOCIATE-C D ora Arreguin RETAIL SPECIAL EVENT ASSOCIATE Work Phone: [facility] Work Phone: Start: 02-02-2023 Non-patient / Non-visit RETAIL SPECIAL EVENT ASSOCIATE-C D ora Arreguin RETAIL SPECIAL EVENT ASSOCIATE Work Phone: [facility] Work Phone: Start: 02-01-2023 End: 02-06-2023 Evaluation and management of inpatient RETAIL SPECIAL EVENT ASSOCIATE-C Alexandra Arreguin RETAIL SPECIAL EVENT ASSOCIATE Work Phone: [facility] Work Phone: Start: 01-20-2023 End: 01-20-2023 Patient encounter procedure Em Flynn APRN.CEMENTER MACHINE Work Phone: Neurology Comment on above: Parkinson's disease without dyskinesia or fluctuating manifestations (Primary Dx); Hallucinations; Orthostatic hypotension; Insomnia, unspecified type Start: 01-05-2023 End: 01-05-2023 Patient encounter procedure RETAIL SPECIAL EVENT ASSOCIATE-C Alexandra Arreguin RETAIL SPECIAL EVENT ASSOCIATE Work Phone: [facility] Work Phone: Start: 12-29-2022 End: 12-29-2022 Patient encounter procedure RETAIL SPECIAL EVENT ASSOCIATE-C Alexandra Arreguin RETAIL SPECIAL EVENT ASSOCIATE Work Phone: [facility] Work Phone: Start: 10-09-2022 End: 10-09-2022 Office outpatient new 45 minutes Linden Flynn MD Work Phone: Neurology Comment on above: Parkinson's disease (HCC) (Primary Dx); Argyria of skin, accidental or unintentional, sequela; Depression, unspecified depression type Start: 2022 End: 2022 ambulatory [facility] Work Phone: Start: 2022 End: 2022 Patient encounter procedure [facility], Specimen Procedures Date Procedure Procedure Detail Performing Clinician Start: 06-03-2024 Radionuclide study o f abdomen Alexandra Arreguin RETAIL SPECIAL EVENT ASSOCIATE-C Work Phone: Start: 10-02-2023 Arthrocentesis aspir &/inj major jt/bursa w/o us Laura Jasso MD Work Phone: Start: 09-29-2023 Radex shoulder compl ete minimum 2 views Claudiakenny GODINEZC Work Phone: Start: 09-23-2023 Us breast uni real t jason with image limited [facility] Provider Start: 07-29-2023 Mri spinal canal cer vical w/o contrast matrl Em Flynn SLITTER OPERATOR.CEMENTER MACHINE Work Phone: Start: 05-01-2023 CT cervical spine wi thout contrast RETAIL SPECIAL EVENT ASSOCIATE-C Alexandra Arreguin RETAIL SPECIAL EVENT ASSOCIATE Work Phone: Start: 05-01-2023 CT of head without contrast RETAIL SPECIAL EVENT ASSOCIATE-C Alexandra Arreguin RETAIL SPECIAL EVENT ASSOCIATE Work Phone: Start: 02-06-2023 Viral antigen assay RETAIL SPECIAL EVENT ASSOCIATE- C Alexandra Arreguin RETAIL SPECIAL EVENT ASSOCIATE Work Phone: Start: 02-02-2023 Plain X-ray of hip RETAIL SPECIAL EVENT ASSOCIATE-Mariajose Arreguin RETAIL SPECIAL EVENT ASSOCIATE Work Phone: Start: 02-02-2023 Open reduction of fr acture of femur with internal fixation RETAIL SPECIAL EVENT ASSOCIATE-Mariajose Arreguin RETAIL SPECIAL EVENT ASSOCIATE Work Phone: Start: 02-02-2023 Fluoroscopic guidance N P-C Alexandra Arreguin RETAIL SPECIAL EVENT ASSOCIATE Work Phone: Start: 02-01-2023 Plain x-ray of elbow RETAIL SPECIAL EVENT ASSOCIATE -C Alexandra Arreguin RETAIL SPECIAL EVENT ASSOCIATE Work Phone: Start: 02-01-2023 CT of head without contrast RETAIL SPECIAL EVENT ASSOCIATE-C Alexandra Arreguin RETAIL SPECIAL EVENT ASSOCIATE Work Phone: Start: 02-01-2023 Plain chest X-ray RETAIL SPECIAL EVENT ASSOCIATE-C Alexandra Arreguin RETAIL SPECIAL EVENT ASSOCIATE Work Phone: Start: 02-01-2023 Plain X-ray of femur RETAIL SPECIAL EVENT ASSOCIATE -C Alexandra Arreguin RETAIL SPECIAL EVENT ASSOCIATE Work Phone: Plan of Treatment Date Care Activity Detail Author Start: 12-29-2024 End: 12-29-2024 Patient encounter procedure 12/29/2024 10:00 AM EDT Office Visit Neurology [address] [place] [phone] Em Flynn, PAT.CEMENTER MACHINE [address] [address] 6 month follow up Neurology Comment on above: 6 month follow up Start: 07-29-2024 End: 07-29-2024 Patient encounter procedure 07/29/2024 3:00 PM EDT Office Visit Neuromuscular [facility] [address] [place] [address] Armen Madison MD [address] [place] [address] 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 Neuromuscular [facility] Comment on above: 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 Start: 07-29-2024 End: 10-28-2024 Cobalamin (Vitamin B12) [Mass/volume] in Serum or Plasma [facility] Comment on above: Expected: 07/29/2024, Expires: Start: 07-29-2024 End: 10-28-2024 Folate [Mass/volume] in Serum or Plasma [facility] Comment on above: Expected: 07/29/2024, Expires: Start: 07-29-2024 End: 10-28-2024 Hemoglobin A1c in Blood [facility] Work Phone: Comment on above: Expected: 07/29/2024, Expires: Start: 07-29-2024 End: 10-28-2024 IMMUNOFIXATION SCREEN, SERUM [facility] Comment on above: Expected: 07/29/2024, Expires: Start: 07-29-2024 End: 10-28-2024 KAPPA/ZIMMERMAN,FREE,SER [facility] Comment on above: Expected: 07/29/2024, Expires: Start: 07-29-2024 End: 10-28-2024 Methylmalonate [Moles/volume] in Serum or Plasma [facility] Comment on above: Expected: 07/29/2024, Expires: Start: 07-29-2024 End: 10-28-2024 VITAMIN B1 (THIAMINE), WHOLE BLOOD [facility] Comment on above: Expected: 07/29/2024, Expires: Start: 06-02-2024 Urine microalbumin profile DTaP,Tdap,Td Vaccine (2 - Td or Tdap) [facility] Start: 04-13-2024 Advance Directive Discussion Advance Directive Discussion [facility] Start: 04-07-2024 End: 04-07-2024 Patient encounter procedure 04/07/2024 10:00 AM EST Office Visit Neurology [address] [phone] Em Flynn, SLITTER OPERATOR.CEMENTER MACHINE [address] [place] [address] 3 month follow up Neurology Comment on above: 3 month follow up Start: 12-31-2023 End: 12-31-2023 Patient encounter procedure 12/31/2023 9:00 AM EDT Office Visit Neurology [address] [phone] Em Flynn, SLITTER OPERATOR.CEMENTER MACHINE [address] [place] [address] 3 month follow up Neurology Comment on above: 3 month follow up Start: 12-13-2023 Covid-19 Vaccine ( season) Covid-19 Vaccine ( season) [facility] Start: 12-13-2023 Covid-19 Vaccine () Covid-19 Vaccine () [facility] Start: 12-13-2023 Influenza vaccination [facility] Start: 11-20-2023 End: 11-20-2023 Patient encounter procedure 11/20/2023 7:45 AM EDT Appointment Mammography [address] [address] INCONCLUSIVE MAMMOGRAM - ORDER SCANNED IN [facility] 09/24/23 Mammography Comment on above: INCONCLUSIVE MAMMOGRAM - ORDER SCANNED I N [facility] 09/24/23 Start: 10-02-2023 End: 10-02-2023 Patient encounter procedure Orthopedics Comment on above: Acute pain of left shoulder [M25.512] L shoulder Start: 09-29-2023 End: 09-29-2023 Patient encounter procedure 09/29/2023 9:00 AM EDT Office Visit Neurology [address] [phone] Em Flynn, SLITTER OPERATOR.CEMENTER MACHINE [address] [place] [address] Return in about 3 months (around 10/06/2023). Neurology Comment on above: Return in about 3 months (around 10/06/19). Start: 09-23-2023 End: 09-23-2023 Patient encounter procedure 09/23/2023 9:20 AM EDT Appointment Mammography [address] [place] [address] Franki breast us, left breast diagnostic mammogram Mammography Comment on above: Franki breast us, left breast diagnostic m ammogram Start: 09-23-2023 Subsequent hospital visit by physician 09/23/2023 9:20 AM EDT Hospital Encounter Mammography [address] [place] [address] Inconclusive mammogram [R92.2] Mammography Comment on above: Inconclusive mammogram [R92.2] Start: 08-27-2023 End: 08-27-2023 Patient encounter procedure 08/27/2023 1:40 PM EDT Office Visit [facility] [address] [address] Marie Ramirez PA-C [address] [place] [address] 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] [facility] Comment on above: Protrusion of cervical intervertebral di sc [M50.20] Start: 08-13-2023 End: 08-13-2023 Patient encounter procedure Mammography Comment on above: MAMMOGRAM SCREENING BILATERAL DEXA BONE DENSITY Start: 05-01-2023 [facility] Start: 04-13-2023 Advance Directive Discussion Advance Directive Discussion [facility] Start: 04-13-2023 Behavioral Health Screening Behavioral Health Screening [facility] Start: 04-13-2023 Depression Assessment Depression Assessment [facility] Start: 02-09-2023 Blood chemistry [facility] Start: 02-08-2023 Blood chemistry [facility] Start: 02-07-2023 Blood chemistry [facility] Start: 02-06-2023 Patient discharge [facility] Start: 02-03-2023 Administration of blood product [facility] Start: 02-02-2023 Ambulation therapy management [facility] Start: 02-02-2023 Application of device [facility] Start: 02-02-2023 Exercises [facility] Start: 02-02-2023 Following clinical pathway protocol [facility] Start: 02-02-2023 Introduction of urinary catheter [facility] Start: 02-02-2023 Neurovascular assessment [facility] Start: 02-02-2023 Patient education [facility] Start: 02-02-2023 Provision of activity privileges [facility] Start: 02-02-2023 Recommendation to continue with treatment [facility] Start: 02-02-2023 Referral to occupational therapist [facility] Start: 02-02-2023 Referral to service [facility] Start: 02-02-2023 Vital signs measurements [facility] Start: 02-02-2023 Wound care [facility] Start: 02-02-2023 [facility] Start: 02-02-2023 End: 02-02-2023 Measuring intake and output [facility] Start: 02-01-2023 Application of intermittent pneumatic compression device [facility] Start: 02-01-2023 Following clinical pathway protocol [facility] Start: 02-01-2023 Application of ice collar, cap or bag [facility] Start: 02-01-2023 Assessment of risk of venous thromboembolism [facility] Start: 02-01-2023 Bedrest [facility] Start: 02-01-2023 Consultation [facility] Start: 02-01-2023 Fall prevention [facility] Start: 02-01-2023 Inhalation therapy procedure [facility] Start: 02-01-2023 Insertion of catheter into peripheral vein [facility] Start: 02-01-2023 Introduction of urinary catheter [facility] Start: 02-01-2023 Neurovascular assessment [facility] Start: 02-01-2023 Providing care according to standard [facility] Start: 02-01-2023 Referral to occupational therapist [facility] Start: 02-01-2023 Referral to service [facility] Start: 02-01-2023 Skin care [facility] Start: 02-01-2023 [facility] Start: 02-01-2023 End: 02-01-2023 Measuring intake and output [facility] Start: 02-01-2023 Admission procedure [facility] Start: 02-01-2023 Hospital admission, emergency, from emergency room, medical nature [facility] Start: 02-01-2023 Brain natriuretic peptide measurement [facility] Start: 12-12-2022 Covid-19 Vaccine () Covid-19 Vaccine () [facility] Start: 12-12-2022 Influenza vaccination [facility] Start: 04-13-2022 ADVANCE DIRECTIVE DISCUSSION ADVANCE DIRECTIVE DISCUSSION [facility] Start: 04-13-2022 DEPRESSION ASSESSMENT DEPRESSION ASSESSMENT [facility] Start: 01-07-2019 Shingrix Vaccine (2 of 2) Shingrix Vaccine (2 of 2) [facility] Start: 2016 RSV Vaccine (1 - 1-dose 75+ series) RSV Vaccine (1 - 1-dose 75+ series) [facility] Start: 2006 BONE DENSITY BONE DENSITY [facility] Start: 2006 Bone Density Screening Bone Density Screening [facility] Start: 2006 Pneumococcal Vaccine: 65+ (1 - PCV) Pneumococcal Vaccine: 65+ (1 - PCV) [facility] Start: 2006 Pneumococcal Vaccine: 65+ (1 of 1 - PCV) Pneumococcal Vaccine: 65+ (1 of 1 - PCV) [facility] Start: 2006 PNEUMOCOCCAL: 65+ (1 - PCV) PNEUMOCOCCAL: 65+ (1 - PCV) [facility] Start: 2006 Screening for osteoporosis Bone Density Screening [facility] Start: 2001 RSV Vaccine (1 - 1-dose 60+ series) RSV Vaccine (1 - 1-dose 60+ series) [facility] Start: 1991 SHINGRIX VACCINE (1 of 2) SHINGRIX VACCINE (1 of 2) [facility] Start: 1986 DIABETES SCREEN DIABETES SCREEN [facility] Start: 1986 Diabetes Screening Diabetes Screening [facility] Start: 1960 Urine microalbumin profile [facility] Start: 1959 Anxiety Screening Anxiety Screening [facility] Start: 1959 Depression Screening Depression Screening [facility] Start: 1959 Hepatitis B surface antibody level LDL CHOLESTEROL [facility] Start: 1941 COVID-19 VACCINE (#1) COVID-19 VACCINE (#1) [facility] Hematocrit [Volume Fraction] of Blood [facility] Hematocrit [Volume Fraction] of Blood [facility] Hemoglobin [Mass/vol ume] in Blood [facility] Hemoglobin [Mass/vol ume] in Blood [facility] Leukocytes [#/volume ] in Blood [facility] Leukocytes [#/volume ] in Blood [facility] Mean corpuscular hemoglobin concentration determination [facility] Mean corpuscular hemoglobin concentration determination [facility] Mean corpuscular hemoglobin determination [facility] Mean corpuscular hemoglobin determination [facility] End: 08-04-2024 MR Cervical spine WO contrast MRI CERVICAL SPINE WO IVCON Radiology Routine 1 Occurrences starting 07/06/2023 until 08/04/2024 [facility] Work Phone: Comment on above: 1 Occurrences starting 07/06/2023 until 08/04/2024 Neutrophil count [facility] Neutrophil count [facility] Neutrophil percent differential count [facility] Neutrophil percent differential count [facility] Patient Education [facility] Work Phone: Patient referral [facility] Work Phone: Platelets [#/volume] in Blood [facility] Platelets [#/volume] in Blood [facility] Red blood cell count [facility] Red blood cell count [facility] Red cell distributio n width determination [facility] Red cell distributio n width determination [facility] XR Shoulder - left 3 Views XR SHOULDER GENERAL 3V OR MORE AP/TRUE AP/OTHER LEFT Radiology Routine Chronic left shoulder pain 1 Occurrences starting 09/15/2023 [facility] Work Phone: Comment on above: 1 Occurrences starting 09/15/2023 [facility] Payers Date Payer Category Payer Self-pay 2024 Medicaid [id number] 2023 Medicaid [id number] 2023 Medicare (Managed Care) [facility] MEDICARE [id number] 2023 Medicare [id number] 2022 Medicare [id number] Unknown [employer] MCR ADV [id number] Unknown [id number] Unknown [id number] Unknown [id number] Social History Date Type Detail Facility Start: 2022 End: 05-01-2023 Tobacco smoking status [facility] Unknown if ever smoked [facility] Start: 1940 Sex Assigned At Female [facility] Start: 10-09-2022 End: 05-01-2023 Tobacco smoking status VAIS Ex-smoker [facility] History of tobacco use Current smoker [facility] History of tobacco use Cigarette Smoker [facility] Start: 10-09-2022 End: 08-27-2023 Tobacco use and exposure Smokeless tobacco non-user [facility] Start: 10-09-2022 End: 07-29-2024 Alcohol intake Lifetime non-drinker (finding) [facility] Start: 1940 Sex Assigned At Not on file [facility] Start: 01-20-2023 End: 07-29-2024 History of Social function [facility] Start: 01-20-2023 End: 07-29-2024 Tobacco use panel [facility] National Score (1-100), lower number is lower risk 51 [facility] Start: 06-16-2024 Sex Female (finding) [facility] NEGATED: Highlighted row [facility] NEGATED: Highlighted rowStart: NINF History of tobacco use Passive smoker [facility] Medical Equipment Procedure Code Equipment Code Equipment Origin al Text Equipment Identifier Dates ORIF, hip, using Gamma nail ([id number]) Orthopaedic bone screw, non-bioabsorbable, sterile [id number] FDA Start: 02-02-2023 ORIF, hip, using Gamma nail ([id number]) Femur nail, sterile [id number] FDA Start: 02-02-2023 ORIF, hip, using Gamma nail ([id number]) Orthopaedic bone screw, non-bioabsorbable, sterile ()[id number] FDA Start: 02-02-2023 Goals Date Patient Goal Desired Activity /State Functional Status Date Assessment Result Facility 02-06-2023 Functional status Ambulates [facility] Work Phone: Mental Status Date Assessment Result Facility 02-06-2023 Cognitive function Voice/Name [facility] Work Phone: Clinical Notes 10-09-2022 to 09-27-2024 Note Date & Type Note Facility 09-27-2024 Progress note [facility] 09-27-2024 Progress note Note Date/Time September 27, 2024 11:51am [facility] [address] [place] [address] OFFICE VISIT Date of Service: 09/27/24 MR#: [id number] Acct: [id number] Name: MONISHA COHN Rep #: [id number] : 1940 Provider: Dr. Domingo Vernon MD Age/Sex: 84/F Location: [facility] Status: Signed HPI HPI History of Present Illness Details: This pleasant lady with history of coronary artery disease, hypertension, Parkinson's disease and dyslipidemia is here for follow-up visit. Denies any chest pains or shortness of breath. No palpitations. No orthopnea or PND. Occasional ankle edema. Intake Vital Signs 03/16/24 08:37 09/27/24 08:22 Height 5 ft 2 in 5 ft 2 in Weight: 157 lb 161 lb BMI 28.7 29.4 BP 97/62 125/72 H Blood Pressure Location Lt brachial Lt brachial Position Sitting Sitting Respiration 18 16 Pulse 59 L 72 Pulse Source NIBP NIBP Intake Visit Reasons: 6 M FU Monologist Required: No Accompanied by: Is patient in pain?: No Allergies oxycodone (From Percocet) Allergy (Severe, Verified 09/27/24 11:17) Hives Medications ?Medication ?Instructions ?Recorded ?Confirmed ?Type aspirin 81 mg tablet,delayed 81 mg PO DAILY 02/25/22 0 09/27/24 History release (Adult Aspirin Regimen) acetaminophen 325 mg capsule 650 mg PO Q6H PRN fever o r pain 05/01/23 09/27/24 History atorvastatin 40 mg tablet 40 mg PO QHS 05/01/23 History polyethylene glycol 3350 17 17 g PO DAILY 05/01/23 History gram/dose oral powder (ClearLax) psyllium husk 3.4 gram/5.4 gram 1 tbsp PO DAILY 09/27/24 History oral powder (Stacie-Mucil) senna-docusate sodium capsule 1 cap PO BID 05/01/23 History cholecalciferol (vitamin D3) 25 25 mcg PO DAILY 09/27/24 History mcg (1,000 unit) capsule amlodipine 10 mg tablet 10 mg PO QDAY 03/16/2409/27 History hydroxyzine HCl 25 mg tablet 25 mg PO BID PRN 03/16/24 09/27/24 History hydroxyzine HCl 25 mg tablet 25 mg PO QHS 03/16/24 History nitrofurantoin macrocrystal 100 mg 100 mg PO QHS 03/1609/27/24 History capsule alendronate 70 mg tablet 70 mg PO QWEEK 09/27/2409/11 History carbidopa 25 mg-levodopa 100 mg tab PO 09/27/24 History tablet celecoxib 200 mg capsule 200 mg PO QDAY 09/27/2409/11 History duloxetine 20 mg capsule,delayed 20 mg PO QDAY 5 09/27/24 History release mirabegron 25 mg tablet,extended 25 mg PO QDAY 5 09/27/24 History release 24 hr (Myrbetriq) tramadol 50 mg tablet 50 mg PO TID PRN 09/27/24 History Ejection fraction %: 55 Have you fallen in the past year?: Yes (no major injuries; 2) [facility] Medical History Atherosclerotic heart disease of [place] coronary artery without angina pectoris Bladder spasms CAD (coronary artery disease) Cardiogenic shock CHI (closed head injury) Depression Edema, lower extremity Emphysema with chronic bronchitis Essential (primary) hypertension Fall Fibromyalgia Former tobacco use Gout Hyperlipidemia Hypertension Myocardial infarction Non-rheumatic mitral regurgitation Non-rheumatic tricuspid valve insufficiency Parkinsons disease Presence of stent in coronary artery (~12/22/21) Pulmonary hypertension ST elevation myocardial infarction (STEMI) of inferior wall (~12/22/21) Urgency of urination Surgical History History of ankle surgery History of hysterectomy Presence of coronary angioplasty implant and graft S/P appendectomy Family History Father Heart disease Social History household members: friend(s) Smoking Status: Former smoker pack-years: 30 Tobacco: How many years used: 30 how long ago did patient quit smoking: Quit 20+ years prior. alcohol intake: current alcohol intake frequency: holidays/special occasions only substance use type: does not use caffeine: Yes Type: coffee Number of servings: 2 ROS Const Const: Negative for fatigue, weakness, headache(s) or weight gain ENT ENT: Negative for headache(s), dizziness, Nosebleed/epistaxis or balance problems Cardio Chest Pain: No Palpitations: No Edema: None Muscle aches with walking: None Resp Respiratory: Negative for SOB with activity, SOB at rest or SOB orthopneaundefinedSOB lying down GI GI: Negative nausea, vomiting or heartburn Musc Musc: Negative for muscle aches/ myalgia, muscle weakness, joint pain or balanceproblems Neuro Neuro: Negative for dizziness, lightheadedness, near syncope, syncope, headache(s) or weakness Endo Endo: Negative for fatigue Cardiology Exam Const Appearance: comfortable, no acute distress and other Nutritional Appearance: well nourished Patient has bluish discoloration of her face with history of silver intake. Argyria. Neck Neck: no JVD Carotids: Negative bruit Chest Auscultation: Bilateral: Clear to Auscultation Cardio Rate: regular rate Rhythm: regular rhythm Heart sounds: S1 normal and S2 normal Neuro General: patient alert, patient awake and patient oriented x3 Extremities Lower Extremity Edema: Trace: Bilateral Supplemental Info Supplemental Information ECHOCARDIOGRAM 12/23/21 @ [facility] Left ventricular ejection fraction is normal, estimated at 55-60%. Left ventricular chamber dimension is normal. Left ventricular wall thickness is normal. The left ventricular segmental wall function is normal. Right ventricular chamber size is normal. Right ventricular systolic function isnormal. TAPSE is normal, 1.7cm There is no aortic valve regurgitation There is trace mitral valve regurgitation There is mild tricuspid valve regurgitation Cath Intervention 12/20/[address] [facility] Percutaneous coronary angioplasty and stenting of the right coronary artery withtwo drug eluting stents 2.5x30mm and 2.5x12mm Cath Intervention 12/22/[address] [facility] Percutaneous coronary intervention in the right coronary artery with a 2.75x22 mm MIKKI drug eluting stent Assessment and Plan Assessment and Plan (1) CAD (coronary artery disease): Status: Chronic Plan: History of inferior MT. History of drug-eluting stents placement to the RCA. Continue aspirin. Risk factor modification. Check Lexiscan stress Myoview to evaluate for silent ischemia. Check echo. (2) Essential (primary) hypertension: Status: Chronic Plan: Amlodipine. (3) Hyperlipidemia: Status: Chronic Plan: Atorvastatin. Continue to manage as per PCP. (4) Non-rheumatic mitral regurgitation: Status: Chronic Plan: Monitor. Check echocardiogram. (5) Parkinsons disease: Status: Chronic Plan: As per PCP/neurology. (6) Argyria: Status: Chronic Plan: She has history of silver intake. Marked bluish discoloration of the face. Plan Details Follow Up: 6 Months Coding Level of Care Code Off vis,est,level 4 Diagnoses CAD (coronary artery disease) I25.10 Essential (primary) hypertension I10 Hyperlipidemia E78.5 Non-rheumatic mitral regurgitation I34.0 Parkinsons disease G20 Argyria T56.891A Coding Level of Care Code Off vis,est,level 4 Diagnoses CAD (coronary artery disease) I25.10 Essential (primary) hypertension I10 Hyperlipidemia E78.5 Non-rheumatic mitral regurgitation I34.0 Parkinsons disease G20 Argyria T56.891A Clinical Quality Measures Falls Risk Screening/Assistive Devices Have you fallen in the past year?: Yes (no major injuries; 2) Cardiac Ejection fraction %: 55 09/27/24 1151 <Electronically signed by Danielle Vernon MD> Date _ Danielle Vernon MD Cosigner Signature: Date (if applicable) CC: Tressa Rosales ~ [facility] Work Phone: [phone] Instructions* Patient Instructions* Armen Madison MD - 07/29/2024 3:16 PM EDT Your symptoms and examination are consistent with a mild peripheral polyneuropathy. We will do somebloodwork today to look for causes of the neuropathy, sometimes with we this is Parkinson's diseaseand the medications you take for it. I recommend working with physical and occupational therapy to help with some of the effects of this neuropathy. [facility] History of Present illness Narrative* Armen Madison MD - 07/29/2024 3:00 PM EDT [facility] New Patient Visit Note Consultation requested by Em Flynn APRN.CNP for an opinion regarding neuropathy. My final recommendations will be communicated back to the requesting physician by way of shared Medical record or letter to requesting physician via US mail. HPI: Ms. Monisha Cohn is a 84 year old female referred for neuropathy. The patient has a past medical history of Parkinson's disease c/b orthostatic hypotension. Has been having issues with numbness in her hands/feet, starting about 2 months ago. Extend up to the PIP in fingers and mid-foot. Overall feels a numbness in hands and feet, a little pain in the feet, feels like she's walking on scrunched up paper. Having difficulty using hands to pick-up items due to the numbness in the hands. Uses a walker and wheelchair for her gait, since she broke her hip in 2022. Does feel like numbnessis affecting her gait, less balance. Diagnosed with PD about 4 years ago, issues with voice and tremor in her legs. Has been on Sinemet since then. Family history: Denies family history of neuropathy, myopathy and/or neurodegenerative disease Physical Exam BP 110/65 (BP Site: Right Arm, BP Position: Sitting, BP Cuff Size: Regular Adult) Pulse 68 LMP (LMP Unknown) GENERAL Well nourished, well hydrated, no acute distress. MENTAL STATUS EXAM Orientation: Alert and oriented to person, place and time. Memory: Cooperative, follows commands well. Recent and remote memory normal. Attention, concentration: Attention span and concentration are normal. Language: Speech is clear and language is normal. Fund of knowledge: Aware of current events, vocabulary appropriate for patient age. CRANIAL NERVES CNII: Visual acuity normal. Visual garibay full to confrontation CNIII, IV, : Pupils equal, round and reactive to light. Full extraoccular movements without nystagmus CN V: Facial sensation intact bilaterally to fine touch CN VII: Frontalis, orbicularis oculi, buccinator, orbicularis ofelia strength intact. Symmetric smile CN VIII: Hears finger rub well bilaterally CN IX: Gag Reflex Not examined CN X: Palate elevates symmetrically CN XI: Full strength shoulder shrug bilaterally CN XII: Tongue protrusion full and midline. No atrophy or fasciculations. Tongue movements are normal Speech is normal MOTOR Strength/Power (MRC grade- out of 5): Neck Flexion: 5/5 Neck Extension: 5/5 Upper extremity power, when graded out of 5, revealed: Right Left shoulder abduction 5/5 5/5 shoulder external rotation 5/5 5/5 elbow flexion 5/5 5/5 elbow extension 5/5 5/5 wrist extension 5/5 5/5 finger extension 5-/5 5-/5 deep finger flexion (D2-3) 5/5 5/5 thumb flexion with FPL 5/5 5/5 finger abduction 4+/5 4+/5 Lower extremity strength, when reported the same way, showed: Right Left hip flexion 5/5 5/5 knee extension 5/5 5/5 knee flexion 5/5 5/5 ankle dorsiflexion 5/5 5/5 ankle plantar flexion 5/5 5/5 Muscle: Tone is normal. There is no muscle atrophy or fasciculations. REFLEXES Right Left Bicep 2/4 2/4 Tricep 2/4 2/4 BrRad 2/4 2/4 Knee 2/4 2/4 Ankle 0/4 0/4 PATHOLOGIC REFLEXES: Babinski: bilaterally Downward response COORDINATION Finger-to- nose-finger intact bilaterally. No tremor. SENSATION Light touch: intact Proprioception: intact at great toes Vibration: inconsistent, appears to be a reduction in distal gradient Pinprick: intact GAIT Not assesses Diagnostic Studies: Serum labs: n/a Assessment: Monisha Cohn is a 84 year old woman with a history of Parkinson's disease referred for further evaluation of paraesthesias in the hands and feet. Exam with evidence of distal large fiber dysfunction, which can be attributable to aging. Presentation and symptoms likely secondary to a mild peripheral p olyneuropathy. Increased rate of PN in Parkinson's patients, possibly related to Sinemet use and B12 deficiency. Will perform screening labs for potential etiologies. Recommend symptomatic managementand physical/occupational therapy. Plan: - Serum workup: Labs for neuropathy - Diagnostic workup: Defer EMG - Referral: PT/OT at nursing facility - No follow-ups on file. Follow-up as needed The impression above as well as the plan as outlined below were extensively discussed with the patient who voiced understanding. All questions were answered to their stated satisfaction. When available, results of the above investigations and possible further recommendations will be communicated to the patient via telephone/MyChart. Patient to call office if not contacted after expected testing turnaround time. I spent a total of 34 minutes on the date of the service which included preparing to see the patient, [id number] patient care, completing clinical documentation, performing a medically appropriate examination, counseling and educating the patient/family/caregiver, and ordering medications, tests,or procedures. Armen Madison MD Neurom[facility] Medicine ([facility]) [facility] documented in this encounterBl[facility]04-18-[facility] NoteHNO ID: [id number] Author: ARMEN MADISON MD Service: ? Author Type: Physician Type: Progress Notes Filed: 07/29/2024 15:33 Note Text: [facility] New Patient Visit Note Consultation requested by Em Flynn APRN.CNP for an opinion regarding neuropathy. My final recommendations will be communicated back to the requesting physician by way of shared Medical record or letter to requesting physician via US mail. HPI: Ms. Monisha Cohn is a 84 year old female referred for neuropathy. The patient has a past medical history of Parkinson's disease c/b orthostatic hypotension. Has been having issues with numbness in her hands/feet, starting about 2 months ago. Extend up to the PIP in fingers and mid-foot. Overall feels a numbness in hands and feet, a little pain in the feet, feels like she's walking on scrunched up paper. Having difficulty using hands to pick-up items due to the numbness in the hands. Uses a walker and wheelchair for her gait, since she broke her hip in 2022. Does feel like numbness is affecting her gait, less balance. Diagnosed with PD about 4 years ago, issues with voice and tremor in her legs. Has been on Sinemet since then. Family history: Denies family history of neuropathy, myopathy and/or neurodegenerative disease Physical Exam BP 110/65 (BP Site: Right Arm, BP Position: Sitting, BP Cuff Size: Regular Adult) Pulse 68 LMP (LMP Unknown) GENERAL Well nourished, well hydrated, no acute distress. MENTAL STATUS EXAM Orientation: Alert and oriented to person, place and time. Memory: Cooperative, follows commands well. Recent and remote memory normal. Attention, concentration: Attention span and concentration are normal. Language: Speech is clear and language is normal. Fund of knowledge: Aware of current events, vocabulary appropriate for patient age. CRANIAL NERVES CNII: Visual acuity normal. Visual garibay full to confrontation CNIII, IV, : Pupils equal, round and reactive to light. Full extraoccular movements without nystagmus CN V: Facial sensation intact bilaterally to fine touch CN VII: Frontalis, orbicularis oculi, buccinator, orbicularis ofelia strength intact. Symmetric smile CN VIII: Hears finger rub well bilaterally CN IX: Gag Reflex Not examined CN X: Palate elevates symmetrically CN XI: Full strength shoulder shrug bilaterally CN XII: Tongue protrusion full and midline. No atrophy or fasciculations. Tongue movements are normal Speech is normal MOTOR Strength/Power (MRC grade- out of 5): Neck Flexion: 5/5 Neck Extension: 5/5 Upper extremity power, when graded out of 5, revealed: Right Left shoulder abduction 5/5 5/5 shoulder external rotation 5/5 5/5 elbow flexion 5/5 5/5 elbow extension 5/5 5/5 wrist extension 5/5 5/5 finger extension 5-/5 5-/5 deep finger flexion (D2-3) 5/5 5/5 thumb flexion with FPL 5/5 5/5 finger abduction 4+/5 4+/5 Lower extremity strength, when reported the same way, showed: Right Left hip flexion 5/5 5/5 knee extension 5/5 5/5 knee flexion 5/5 5/5 ankle dorsiflexion 5/5 5/5 ankle plantar flexion 5/5 5/5 Muscle: Tone is normal. There is no muscle atrophy or fasciculations. REFLEXES Right Left Bicep 2/4 2/4 Tricep 2/4 2/4 BrRad 2/4 2/4 Knee 2/4 2/4 Ankle 0/4 0/4 PATHOLOGIC REFLEXES: Babinski: bilaterally Downward response COORDINATION Finger-to- nose-finger intact bilaterally. No tremor. SENSATION Light touch: intact Proprioception: intact at great toes Vibration: inconsistent, appears to be a reduction in distal gradient Pinprick: intact GAIT Not assesses Diagnostic Studies: Serum labs: n/a Assessment: Monisha Cohn is a 84 year old woman with a history of Parkinson's disease referred for further evaluation of paraesthesias in the hands and feet. Exam with evidence of distal large fiber dysfunction, which can be attributable to aging. Presentation and symptoms likely secondary to a mild peripheral polyneuropathy. Increased rate of PN in Parkinson's patients, possibly related to Sinemet use and B12 deficiency. Will perform screening labs for potential etiologies. Recommend symptomatic management and physical/occupational therapy. Plan: - Serum workup: Labs for neuropathy - Diagnostic workup: Defer EMG - Referral: PT/OT at nursing facility - No follow-ups on file. Follow-up as needed The impression above as well as the plan as outlined below were extensively discussed with the patient who voiced understanding. All questions were answered to their stated satisfaction. When available, results of the above investigations and possible further recommendations will be communicated to the patient via telephone/MyChart. Patient to call office if not contacted after expected testing turnaround time. I spent a total of 34 minutes on the date of the service which included prepari (more content not included)...[facility]03-18-2025 Instructions* Patient Instructions* Em Flynn APRN.[facility] - 06/28/2024 8:50 AM EDT It was a pleasure to see you today. We addressed the following diagnoses: Parkinson's disease with dyskinesia without fluctuating manifestations (hcc) Dysphagia, unspecified type (primary encounter diagnosis) Numbness and tingling of both feet Numbness and tingling in both hands My recommendations are as follows: Parkinson's disease: Continue on current Sinemet schedule All Parkinson's disease medications should be taken within 15 or 30 minutes at the very latest so that they will work correctly as not getting them on time will put her at risk for falls Physical therapy, occupational therapy, and speech therapy have been ordered. Continue walking with your walker and engage in other exercises as you are able. Discuss with your daughter the possibility of helping you manage your bills and finances to reduce stress. Numbness and Tingling: A consult has been placed for a neuromuscular specialist or general neurologist to evaluate the numbness and tingling in your feet and fingertips. Follow up with the scheduled appointment. Hallucinations: Monitor for any worsening of hallucinations. If they become more frequent or bothersome, contact the clinic using the number provided at the top of your summary. When you start getting your medication on time, we may be able to reduce the dose which then may help these hallucinations Movement Disorders Medication Schedule: Medications 8AM 12PM 4PM 8PM Sinemet 25/100 2 1.5 1.5 1.5 Return at or around: 12/29/24 If there are any concerns before your next visit, please call or you can send a message through [employer]. You can also now schedule and select appointments through [employer]. Em Flynn APRN.CNP documented in this [facility]Bl[facility] History of Present illness Narrative* Em Flynn APRN.CNP - 06/28/2024 8:00 AM EDT [facility] - FOLLOW UP EVALUATION The patient consented to the use of ambient DrinkSendo software for draft documentation of the visit consistent with [facility] s Notice of Privacy Practices. Alexandra Arreguin APRN.CNP [address] [facility] [address] [place] [id number] Dear Alexandra Arreguin APRN.CNP: I had the pleasure of seeing Ms. Cohn for follow-up today. As you know she is a 84 year old right-handed female with a history of Parkinson's disease since 2019. Subjective Previous Plan- 12/31/2023 Visit: Parkinson's disease: Continue on current Sinemet schedule Please make sure the iron is separate from the Sinemet by 2 hours as it interferes with the absorption of Sinemet and will make it not work well if at all. All Parkinson's disease medications should be taken within 15 or 30 minutes at the very latest so that they will work correctly as not getting them on time will put her at risk for falls Orthostatic hypotension (drops in blood pressure): Systolic blood pressure dropped 28 points today and the diastolic blood pressure dropped 14 points Please make sure you are changing positions slowly and drinking plenty of water. I will ask the nurses to measure your blood pressure sitting and standing for one week at approximately the same time every day If it continues to drop (top number 20 points or more or bottom number 10 points or more) please discuss with the prescriber of your blood pressure medication to see if any adjustments can be made Date/Time BP Sitting Heart Rate Sitting BP Standing Heart Rate Standing Dysphagia (difficulty swallowing): I am ordering speech therapy for them to assess this as well as work with you on your quiet voice At your convenience, please provide us with a copy of your advanced directives (living will and durable power of research attorney for healthcare): By Email: Send your document(s) to as an attachment in either PDF, TIFF, or JPEG format. By Mail: [facility] Information Management, [employer] Advance Directive Processing [address] [place], [place] [address] By In person at any [facility] location Please note: You can use the address or fax number regardless of which [facility] you utilize, and we will make sure it is filed appropriately. Interval History: Monisha attended today with a caregiver from her facility. Monisha reports significant fatigue, which sheassociates with delayed administration of her Parkinson's medication, carbidopa-levodopa. She is supposed to receive her first dose of medication at 8:00 AM but notes that it is often administered late, sometimes as late as 10:30 AM. She reports that the delay in medication leads to increased fatigue, irritability, tremors, and difficulty walking. She mentions that when her medication is delayed,she does not trust herself to walk and opts to use a wheelchair instead. She has reported these issues to the nursing staff but has not seen any improvement. She describes a tremor that begins in her left hand and progresses to her right hand if her medication is delayed for an extended period. She also experiences dyskinesia occasionally, which she can control by trying to relax and sit still. She uses a walker for ambulation and reports a fall a few months ago due to slipping on urine. She experiences freezing of gait occasionally, both while walking and when in a wheelchair and trying to use her feet to propel herself. She continues to experiencelightheadedness upon standing, which resolves after standing for a minute, despite adjustments to her blood pressure medication. She reports urinary urgency, which she describes as an old issue, and constipation, which is managed with Milk of Magnesia. She experiences lower abdominal pain, for which she has undergone testing, but a definitive diagnosis has not been made. She also reports numbness and tingling in her feet and fingertips, describing a sensation of having paper under her feet when in bed. She also experiencesoccasional jerking of her legs at night. She notes that her speech has become quieter and she reports difficulty swallowing, particularly with thicker foods like mashed potatoes. She has not had speech therapy recently but expresses interest in restarting it. She also expresses interest in resuming physical and occupational therapy. She reports good sleep at night and takes naps during the day only occasionally, as she finds that napping can make it harder for her to fall asleep at night. She does not report acting out her dreams or getting tangled in her sheets. She experiences visual hallucinations once or twice a day, such as seeing people from her past who are not actually present. She is aware that these are hallucinations and they do not bother her. Emily not report any compulsive behaviors, such as excessive shopping or gambling. She describes her mood as good and does not report depression. She mentions that she is looking forward to being in heaven due to her [employer] mark, which some people misinterpret as depression. Emily not report anxiety but does express concern about managing her finances and paying her bills on time. She is currently responsible for managing her finances but finds it increasingly difficult and expresses a desire to get her finances i, n order and planning done. She said she needs her daughter to do all of this with her, but this has been difficult due to her daughter's schedule. 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 Compazine [Prochlor* Contraindication-Medical Surgical This should not be given to people with Parkinson's disease. If not otherwise contraindicated, Zofran should be given instead. Haldol [Haloperidol] Contraindication-Medical Surgical People with Parkinson's disease should not take this or other antipsychotics except Nuplazid, Seroquel, and Clozaril can be prescribed. Phenergan [Prometha* Contraindication-Medical Surgical This should not be given to people with Parkinson's disease. If not otherwise contraindicated, Zofran should be given instead. Reglan [Metoclopram* Contraindication-Medical Surgical This should not be given to people with Parkinson's disease. If not otherwise contraindicated and for nausea, Zofran should be given instead. Current Outpatient Medications Medication Sig GUAIFENESIN ORAL Take by mouth. mag hydrox/aluminum hyd/simeth (MYLANTA DOUBLE-STRENGTH ORAL) Take by mouth. celecoxib (CELEBREX) 200 mg capsule alendronate (FOSAMAX) 70 mg tablet Take 70 mg by mouth one time a week. In AM with cup of water on empty stomach. Nothing else by mouth and stay upright for 30 min. Ceramides 1,3,6-11 (CERAVE DAILY MOISTURIZING) lotn Apply to affected area. DULoxetine (CYMBALTA) 20 mg capsule 2 capsules once daily. ascorbic acid, vitamin C, (VITAMIN C) 500 mg tablet Take 1 tablet by mouth two times a day. polyethylene glycol 3350 17 gram/dose powder Take by mouth. Acetaminophen 500 mg cap Take by mouth. MYRBETRIQ 25 mg Tb24 1 tablet once daily. traMADol (ULTRAM) 50 mg tablet psyllium (KONSYL) packet Take by mouth. cyanocobalamin (VITAMIN B-12) 500 mcg tablet Take 1 tablet by mouth once daily. atorvastatin (LIPITOR) 40 mg tablet Take 1 tablet by mouth every afternoon. carbidopa-levodopa (SINEMET) 25-100 mg per tablet Take 2 tablet daily at 8AM, 2 tablet daily at 12PM, 2 tablet daily at 4PM, and 1.5 tablet daily at 8PM. aspirin, enteric coated (ASPIRIN, ENTERIC COATED) 81 mg EC tablet Take 81 mg by mouth once daily. cholecalciferol, vitamin D3, (VITAMIN D3 ORAL) Take by mouth once daily. No current facility-administered medications for this visit. Objective Vital Signs: BP 112/74 (BP Site: Right Arm, BP Position: Sitting, BP Cuff Size: Regular Adult) Pulse 76 Ht 157.5 cm (5' 2") Wt 70.5 kg (155 lb 6.4 oz) LMP (LMP Unknown) SpO2 99% BMI 28.42 kg/m Orthostatic Vitals: Standing: BP 103/68 Pulse 76 No LMP recorded (lmp unknown). Patient has had a hysterectomy. Body mass index is 28.42 kg/m . Movement Disorders Scales Performed: MDS-UPDRS Motor subscale condition of exam Medication Off/On/Naiive OFF Time of UPDRS 0840 Time of Last Medication 2200 Last Medication Taken DBS Right N/A DBS Left N/A MDS-UPDRS Motor subscale scores Speech 2-Mild. Loss of modulation, diction, or volume, with a few words unclear, but the overall sentences easy to follow. Facial Expression 2-Mild. In addition to decreased eye-blink frequency, Masked facies present in the lower face as well, namely fewer movements around the mouth, such as less spontaneous smiling, butlips not parted. Rigidity Neck 2-Mild. Rigidity detected without the activation maneuver, but full range of motion is easily achieved. Rigidity Right Upper Extremity 0-Normal. No rigidity. Rigidity Left Upper Extremity 0-Normal. No rigidity. Rigidity Right Lower Extremity 1-Slight. Rigidity only detected with activation maneuver. Rigidity Left Lower Extremity 1-Slight. Rigidity only detected with activation maneuver. Finger Taps Right 2-Mild. a) 3 to 5 interruptions during tapping, b) mild slowing, c) the amplitudedecrements midway in the 10-tap sequence. Finger Taps Left 2-Mild. a) 3 to 5 interruptions during tapping, b) mild slowing, c) the amplitude decrements midway in the 10-tap sequence. Hand Movements Right 3-Moderate. a) more than 5 interruptions during the movement or at least one longer arrest (freeze) in ongoing movement, b) moderate slowing, c) the amplitude decrements startingafter the 1st [id number] sequence. Hand Movements Left 2-Mild. a) 3 to 5 interruptions during the movements, b) mild slowing, c) the amplitude decrements midway in the task. Arm Movements Right 2-Mild. a) 3 to 5 interruptions during the movements, b) mild slowing, c) the amplitude decrements midway in the sequence. Arm Movements Left 3-Moderate. a) more than 5 interruptions during the movement or at least one longer arrest (freeze) in ongoing movement, b) moderate slowing, c) the amplitude decrements starting after the 1st supination-pronation sequence. Toe Taps Right 2-Mild. a) 3 to 5 interruptions during the tapping movements, b) mild slowing, c) the amplitude decrements midway in the task. Toe Taps Left 4-Severe. Cannot or can [...] after the first tap. Arise From Chair 3-Moderate. Needs to push off, but tends to fall back, or may have to try more than one time using arms of chair, but can get up without help. Gait 4-Severe. Cannot walk at all or only with another person's assistance. Gait Freezing 0-Normal. No freezing. (did not walk as did not have walker and not safe so deferred) Posture Stability 4-Severe. Very unstable, tends to lose balance spontaneously or with just a gentle pull on the shoulders. Posture 2-Mild. Definite flexion, scoliosis or leaning to one side, but patient can correct postureto normal posture when asked to do so. Body Bradykinesia 2-Mild. Mild global slowness and poverty of spontaneous movements. Postural Tremor Hand Right 0-Normal. No tremor. Postural Tremor Hand Left 0-Normal. No tremor. Kinetic Tremor Right 1-Slight. Tremor is present but less than 1cm in amplitude. Kinetic Tremor Left 0-Normal. No tremor. Rest Tremor Amplitude Right Upper Extremity 0-Normal. No tremor. Rest Tremor Amplitude Left Upper Extremity 0-Normal. No tremor. Rest Tremor Amplitude Right Lower Extremity 0-Normal. No tremor. Rest Tremor Amplitude Left Lower Extremity 0-Normal. No tremor. Rest Tremor Amplitude Lip/Jaw 0-Normal. No tremor. Rest Tremor Constancy 0-Normal. No tremor. MDS-UPDRS Motor subscale totals Left Total 15 Right Total 13 Midline Total 21 Tremor Total / 10 1 PIGD Total / 3 8 Overall Total 49 Change Better/Worse WORSE % Change Compared to Last Filed Total (!) 2.08 Pertinent Studies 07/29/23 Cervical spine MRY Impression: 1.Right posterior disc protrusion at the C6-7 level with mass effect/deformity right ventral cord best seen T2 axial image 17. No poststenotic myelomalacia. 2. At the C3-4 level, mild degenerative effacement ventral and dorsal aspect of the cord. 3. Multilevel degenerative central and foraminal stenotic changes, as listed above 05/01/[address] cervical spine CT Impression: No acute intracranial process. No evidence of acute cervical spinal fracture or spondylolisthesis. Degenerative changes. 02/01/[address] Findings: Normal soft tissue structures. There is hyperostosis frontalis internus. There is mild cerebral atrophy with widening of the extra-axial spaces and ventricular dilatation. There are areas of decreased attenuation within the white matter tracts of the supratentorial brain, consistent with microvascular disease changes.Normal basal ganglia and thalami. Normal brainstem. Normal cerebellum. There is no intracranial hemorrhage. There are no findings of an acute ischemic infarction. Normal visualized paranasal sinuses. 02/02/23 Vit D 34.0 Assessment and Plan: Assessment Mrs. Cohn is a right-handed 84 year old year old female with Parkinson's disease since 2019. The following are the current problems noted and addressed during this visit: Parkinson's disease with dyskinesia without fluctuating manifestations (hcc) Dysphagia, unspecified type (primary encounter diagnosis) Numbness and tingling of both feet Hallucinations Plan 06/28/2024 Visit: 1. Parkinson's disease with dyskinesia without fluctuating manifestations (HCC) (G20.B1) - Experiencing fatigue, tremors, and dyskinesia when medication is delayed; current regimen is carbidopa-levodopa 2 tablets in the morning, then 1.5 tablets three times a day at 8:00, 12:00, 16:00, and 20:00. - Noted freezing of gait and occasional falls; last fall occurred a few months ago due to urgency with urination. - Ordered physical therapy and occupational therapy. - Educated on the importance of timely medication administration; will write a letter to the facility to ensure medication is given preferably within 15 minutes of the scheduled time, no later than 30 minutes. - Encouraged participation in activities to maintain cognitive function. 2. Dysphagia, unspecified type (R13.10) - Difficulty swallowing certain textures, such as mashed potatoes. - Ordered speech therapy to address dysphagia and improve speech volume. 3. Numbness and tingling of both feet (R20.0) - Persistent numbness and tingling in both feet and hands, possibly indicative of neuropathy or related to spine - Ordered a consult with a general neurologist or neuromuscular specialist for further evaluation. 4. Hallucinations - Hallucinations occurring once or twice daily, primarily visual, with insight maintained - Advised to monitor hallucinations and report any worsening. -Can consider reduction in levodopa or medication for hallucinations in the future if neededInterested in clinical research? Not currently My recommendations are as follows: Parkinson's disease: Continue on current Sinemet schedule All Parkinson's disease medications should be taken within 15 or 30 minutes at the very latest so that they will work correctly as not getting them on time will put her at risk for falls Physical therapy, occupational therapy, and speech therapy have been ordered. Continue walking with your walker and engage in other exercises as you are able. Discuss with your daughter the possibility of helping you manage your bills and finances to reduce stress. Numbness and Tingling: A consult has been placed for a neuromuscular specialist or general neurologist to evaluate the numbness and tingling in your feet and fingertips. Follow up with the scheduled appointment. Hallucinations: Monitor for any worsening of hallucinations. If they become more frequent or bothersome, contact the clinic using the number provided at the top of your summary. When you start getting your medication on time, we may be able to reduce the dose which then may help these Updated Movement Disorders Medication Schedule: Medications 8AM 12PM 4PM 8PM Sinemet 25/100 2 1.5 1.5 1.5 Return at or around: 12/29/24 Level of service : 33810 (40-68 min). Time spent 59 min on the day of service, which included preparing to see the patient, [id number] patient care, completing clinical documentation, obtaining and/or reviewing separately obtained history, performing a medically appropriate examination, counseling and educating the patient/family/caregiver, and ordering medications, tests, or procedures. Em Flynn APRN.RUPALI documented in this [facility] NoteHNO ID: [id number] Author: EM FLYNN APRN.CNP Service: ? Author Type: Nurse Practitioner Type: Progress Notes Filed: 06/28/2024 23:22 Note Text: [facility] - FOLLOW UP EVALUATION The patient consented to the use of ambient AI software for draft documentation of the visit consistent with [facility]?s Notice of Privacy Practices. Alexandra Arreguin APRN.CEMENTER MACHINE [address] [facility] [address] [facility] [address] Dear Alexandra Arreguin APRN.CEMENTER MACHINE: I had the pleasure of seeing Ms. Cohn for follow-up today. As you know she is a 84 year old right-handed female with a history of Parkinson's disease since 2019. Subjective Previous Plan- 12/31/2023 Visit: Parkinson's disease: Continue on current Sinemet schedule Please make sure the iron is separate from the Sinemet by 2 hours as it interferes with the absorption of Sinemet and will make it not work well if at all. All Parkinson's disease medications should be taken within 15 or 30 minutes at the very latest so that they will work correctly as not getting them on time will put her at risk for falls Orthostatic hypotension (drops in blood pressure): Systolic blood pressure dropped 28 points today and the diastolic blood pressure dropped 14 points Please make sure you are changing positions slowly and drinking plenty of water. I will ask the nurses to measure your blood pressure sitting and standing for one week at approximately the same time every day If it continues to drop (top number 20 points or more or bottom number 10 points or more) please discuss with the prescriber of your blood pressure medication to see if any adjustments can be made Date/Time BP Sitting Heart Rate Sitting BP Standing Heart Rate Standing Dysphagia (difficulty swallowing): I am ordering speech therapy for them to assess this as well as work with you on your quiet voice At your convenience, please provide us with a copy of your advanced directives (living will and durable power of research attorney for healthcare): By Email: Send your document(s) to as an attachment in either PDF, TIFF, or JPEG format. By Mail: [facility] Information Management, [employer] Advance Directive Processing [address] [place], [place] [address] By In person at any [facility] location Please note: You can use the address or fax number regardless of which [facility] you utilize, and we will make sure it is filed appropriately. Interval History: Monisha attended today with a caregiver from her facility. Monisha reports significant fatigue, which she associates with delayed administration of her Parkinson's medication, carbidopa-levodopa. She is supposed to receive her first dose of medication at 8:00 AM but notes that it is often administered late, sometimes as late as 10:30 AM. She reports that the delay in medication leads to increased fatigue, irritability, tremors, and difficulty walking. She mentions that when her medication is delayed, she does not trust herself to walk and opts to use a wheelchair instead. She has reported these issues to the nursing staff but has not seen any improvement. She describes a tremor that begins in her left hand and progresses to her right hand if her medication is delayed for an extended period. She also experiences dyskinesia occasionally, which she can control by trying to relax and sit still. She uses a walker for ambulation and reports a fall a few months ago due to slipping on urine. She experiences freezing of gait occasionally, both while walking and when in a wheelchair and trying to use her feet to propel herself. She continues to experience lightheadedness upon standing, which resolves after standing for a minute, despite adjustments to her blood pressure medication. She reports urinary urgency, which she describes as an old issue, and constipation, which is managed with Milk of Magnesia. She experiences lower abdominal pain, for which she has undergone testing, but a definitive diagnosis has not been made. She also reports numbness and tingling in her feet and fingertips, describing a sensation of having paper under her feet when in bed. She also experiences occasional jerking of her legs at night. She notes that her speech has become quieter and she reports difficulty swallowing, particularly with thicker foods like mashed potatoes. She has not had speech therapy recently but expresses interest in restarting it. She also expresses interest in resuming physical and occupational therapy. She reports good sleep at night and takes naps during the day only occasionally, as she finds that napping can make it harder for her to fall asleep at night. She does not report acting out her dreams or getting tangled in her sheets. She experiences visual hallucinations once or twice a day, such as seeing people from her past who are n (more content not included)...[facility] 06-03-2024 Nuclear medicine Diagnostic study note [facility] Imaging Services [address] [place] [address] Hepatobilliary Img w/Pharm Int MR#: [id number] Acct: [id number] Name: MONISHA COHN Rep #: [id number] : 1940 F 84 From: Alejandro Tomlin MD PCP: Tressa Rosales Status: REG CLI Study:Hepatobilliary Img w/Pharm Int Date of Exam: 06/03/24 Exam# [id number] Ordering Dr: Deanna Lujan NP [employer]-C PROCEDURE: HEPATOBILLIARY IMG W/PHARM INT REASON FOR EXAM: Right upper quadrant pain and nausea. TECHNIQUE: Intravenous Choletec with planar imaging of the abdomen. 1.4 mcg Kinevac intravenously approximately 15 minutes after the radiopharmaceutical with additional anterior imaging and a region of interest drawn around the gallbladder to calculate a time-activity curve. RADIOPHARMACEUTICAL: 5 mCi of technetium labeled mebrofenin COMPARISON: None. FINDINGS: There is good uptake of the radiopharmaceutical by the liver. Normal gallbladder visualization with the gallbladder identified by 30 minutes. Gallbladder Ejection Fraction: 97 % (Normal is >35%) NM/Hepatobilliary Img w/Pharm Int IMPRESSION: NORMAL HIDA SCAN AND GALLBLADDER EJECTION FRACTION. 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 We addressed the following diagnoses: Parkinson's disease without dyskinesia or fluctuating manifestations (hcc) Dysphagia, unspecified type (primary encounter diagnosis) Orthostatic hypotension My recommendations are as follows: 12/31/2023 Visit: Parkinson's disease: Continue on current Sinemet schedule Please make sure the iron is separate from the Sinemet by 2 hours as it interferes with the absorption of Sinemet and will make it not work well if at all. All Parkinson's disease medications should be taken within 15 or 30 minutes at the very latest so that they will work correctly as not getting them on time will put her at risk for falls Orthostatic hypotension (drops in blood pressure): Systolic blood pressure dropped 28 points today and the diastolic blood pressure dropped 14 points Please make sure you are changing positions slowly and drinking plenty of water. I will ask the nurses to measure your blood pressure sitting and standing for one week at approximately the same time every day If it continues to drop (top number 20 points or more or bottom number 10 points or more) please discuss with the prescriber of your blood pressure medication to see if any adjustments can be made Date/Time BP Sitting Heart Rate Sitting BP Standing Heart Rate Standing Dysphagia (difficulty swallowing): I am ordering speech therapy for them to assess this as well as work with you on your quiet voice At your convenience, please provide us with a copy of your advanced directives (living will and durable power of research attorney for healthcare): By Email: Send your document(s) to as an attachment in either PDF, TIFF, or JPEG format. By Mail: [facility] Information Management, [employer] Advance Directive Processing [address] [place], [place] [address] By In person at any [facility] location Please note: You can use the address or fax number regardless of which [facility] hospital you utilize, and we will make sure it is filed appropriately. Movement Disorders Medication Schedule: Medications 8AM 12PM 4PM 8PM Sinemet 25/100 2 1.5 1.5 1.5 Return at or around: 03/31/24 If there are any concerns before your next visit, please call or you can send a message through [employer]. You can also now schedule and select appointments through [employer]. Em Flynn APRN.RUPALI documented in this encounterBl[facility]09-19-2024 History of Present illness Narrative* Em Flynn APRN.CNP - 12/31/2023 9:00 AM EDT [facility] - FOLLOW UP EVALUATION Alexandra Arreguin APRN.CNP [address] [facility] [address] [facility] [address] Dear Alexandra Arreguin APRN.CNP: I had the pleasure of seeing Ms. Cohn for follow-up today. As you know she is a 83 year old right-handed female with a history of Parkinson's disease since 2019. She is seen with a caregiver at her facility. Subjective Previous Plan-09/29/2023 Visit: Parkinson's disease: I have ordered physical therapy for you. You have been provided with a hand out on freezing of gait and a booklet on speech, swallowing, anddrooling. Please do not hesitate to let me know if you have any questions about anything you read. Continue exercising Continue Sinemet as scheduled Orthostatic hypotension (drops in blood pressure): Stay well hydrated and change positions slowly. Dysphagia: Please let me know if you change your mind about a swallowing test Double vision: Please follow up with your feed mixer helper as scheduled Interested in clinical research? Not currently Interval History: Her main concern is dizziness and feeling like she cannot stay upright when she is walking. 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) Dyskinesia: yes Prior Anti-Parkinson Therapies Carbidopa/Levodopa Questionnaires: In addition, the following areas that may be affected by abnormal involuntary movements were evaluated: Daily activities Difficulties with eating: Difficulties in dressing: Difficulties with hygiene activities: Difficulties with handwriting: Difficulties with doing hobbies and other activities: Difficulties turning in bed: Difficulties getting out of bed, car or chair: Tremors/Gait/Balance Shaking or tremors: Once in a while especially when meds are late Walking and balance problems: She uses a walker and does this independently as well as with a PT Number of falls in the Last Month: She had one fall when she had been incontinent and slipped on the urine and fell. Gait freezing: Yes Autonomic/Pain Lightheadeness on standing: Yes Urinary problems: Yes-incontinence Constipation problems: No Pain and other sensations: She is seen by an immunology specialist for her hip. Speech/Swallowing Speech problems: Her voice is quieter. Drooling: This happens at night Chewing and swallowing problems: Sometimes Sleep/Fatigue Sleep problems: She has slept very well the last two nights but sometimes she does not sleep at all. Daytime sleepiness: She tries not to but sometimes she will fall asleep watching TV. Fatigue: Yes Mood/Behavior Depression: She said is not depressed. Anxiety: She is anxious sometimes about her condition. Finally, the following table shows the patient's overall global physical and mental health using the PROMIS scale: *PROMIS-10 scoring scale: mean = 50, over 50 is above average, under 50 is below average In addition, the following non-motor symptoms and palliative concerns were evaluated: Sleep/Fatigue: REM sleep behavior disorder: No Restless Legs Syndrome: Yes This does not happen all the time and she can usually kick it away. Leg swelling: Yes Impaired sense of smell: Yes Cognition: Cognitive impairment: no MoCA Cognitive assessment: Hallucinations and delusions: yes A few times a day she will see someone run past her and then she realizes they are not there. She is not bothered by it. Apathy: no Impulse control disorder: No Palliative Concerns: Caregiver burden: Spiritual concerns: No Advanced directives on file: No Not on file, but she has been provided with ways to do this Palliative services: Therapy and Exercise: Last PT Date: December 2023 Last OT Date: July [address] Date: Exercises Regularly: Yes She walks in the halls. ALLERGIES Allergen Reactions Percocet [Oxycodone* Rash, Itching Current Outpatient Medications Medication Sig celecoxib (CELEBREX) 200 mg capsule alendronate (FOSAMAX) 70 mg tablet Take 70 mg by mouth one time a week. In AM with cup of water on empty stomach. Nothing else by mouth and stay upright for 30 min. Ceramides 1,3,6-11 (CERAVE DAILY MOISTURIZING) lotn Apply to affected area. DULoxetine (CYMBALTA) 20 mg capsule 2 capsules once daily. ascorbic acid, vitamin C, (VITAMIN C) 500 mg tablet Take 1 tablet by mouth two times a day. ferrous sulfate 325 mg (65 mg iron) tablet Take by mouth. polyethylene glycol 3350 17 gram/dose powder Take by mouth. senna-docusate (SENNA-S) 8.6-50 mg per tablet Take by mouth. Acetaminophen 500 mg cap Take by mouth. metoprolol tartrate, short acting, (LOPRESSOR) 25 mg tablet 0.5 tablets two times a day. MYRBETRIQ 25 mg Tb24 1 tablet once daily. traMADol (ULTRAM) 50 mg tablet psyllium (KONSYL) packet Take by mouth. cyanocobalamin (VITAMIN B-12) 500 mcg tablet Take 1 tablet by mouth once daily. atorvastatin (LIPITOR) 40 mg tablet Take 1 tablet by mouth every afternoon. losartan (COZAAR) 25 mg tablet Take 1 tablet by mouth every afternoon. carbidopa-levodopa (SINEMET) 25-100 mg per tablet Take 2 tablet daily at 8AM, 2 tablet daily at 12PM, 2 tablet daily at 4PM, and 1.5 tablet daily at 8PM. aspirin, enteric coated (ASPIRIN, ENTERIC COATED) 81 mg EC tablet Take 81 mg by mouth once daily. cholecalciferol, vitamin D3, (VITAMIN D3 ORAL) Take by mouth once daily. No current facility-administered medications for this visit. Objective Vital Signs: Ht 157.5 cm (5' 2") LMP (LMP Unknown) SpO2 99% BMI 29.81 kg/m Orthostatic Vitals: Sitting: BP 109/69 Pulse 63 Standing: BP 81/55 Pulse 71 No LMP recorded (lmp unknown). Patient has had a hysterectomy. Body mass index is 29.81 kg/m . Movement Disorders Scales Performed: MDS-UPDRS Motor subscale condition of exam Medication Off/On/Naiive ON Time of UPDRS 0942 Time of Last Medication 0810 Last Medication Taken Sinemet 25/100, 1.5 tab [...] the mouth, such as less spontaneous smiling, butlips not parted. Finger Taps Right 2-Mild. a) 3 to 5 interruptions during tapping, b) mild slowing, c) the amplitudedecrements midway in the 10-tap sequence. Finger Taps Left 3-Moderate. a) more than 5 interruptions during tapping or at least one longer arrest (freeze) in ongoing movement, b) moderate slowing, c) the amplitude decrements starting after the 1st tap. Hand Movements Right 3-Moderate. a) more than 5 interruptions during the movement or at least one longer arrest (freeze) in ongoing movement, b) moderate slowing, c) the amplitude decrements startingafter the 1st [id number] sequence. (She has a trigger finger) Hand Movements Left 2-Mild. a) 3 to 5 interruptions during the movements, b) mild slowing, c) the amplitude decrements midway in the task. Arm Movements Right 1-Slight. a) the regular rhythm is broken with one or two interruptions or hesitations of the movement, b) slight slowing, c) the amplitude decrements near the end of the sequence. Arm Movements Left 2-Mild. a) 3 to 5 interruptions during the movements, b) mild slowing, c) the amplitude decrements midway in the sequence. Toe Taps Right 2-Mild. a) 3 to 5 interruptions during the tapping movements, b) mild slowing, c) the amplitude decrements midway in the task. Toe Taps Left 4-Severe. Cannot or can [...] after the first tap. Arise From Chair 3-Moderate. Needs to push off, but tends to fall back, or may have to try more than one time using arms of chair, but can get up without help. Gait 4-Severe. Cannot walk at all or only with another person's assistance. (She does not have her walker here and needs it to walk and with assistance due to her recently broken hip and falls) Body Bradykinesia 3-Moderate. Moderate global slowness and [...] tremor. Rest Tremor Constancy 0-Normal. No tremor. She has mild head dyskinesia. Pertinent Studies 05/01/[address] Impression: No acute intracranial process. No evidence of acute cervical spinal fracture or spondylolisthesis. Degenerative changes. 02/01/[address] Findings: Normal soft tissue structures. There is hyperostosis frontalis internus. There is mild cerebral atrophy with widening of the extra-axial spaces and ventricular dilatation. There are areas of decreased attenuation within the white matter tracts of the supratentorial brain, consistent with microvascular disease changes.Normal basal ganglia and thalami. Normal brainstem. Normal cerebellum. There is no intracranial hemorrhage. There are no findings of an acute ischemic infarction. Normal visualized paranasal sinuses. 02/02/23 Vit D 34.0 Assessment and Plan: Assessment Mrs. Cohn is a right-handed 83 year old year old female with Parkinson's disease since 2019. Her main concern is dizziness and risk of falls due to not feeling like she can hold herself up sometimes. This is most likely related to her orthostatic hypotension. I have asked the nurses at her facility to monitor this for a week and if there is orthostasis as seen in the office, to reach out to the prescriber of her blood pressure medications to see if an adjustment can be made. Unrelated, she also may be experiencing some neuropathy, but she has no interest in having this evaluated. The following are the current problems noted and addressed during this visit: Parkinson's disease without dyskinesia or fluctuating manifestations (hcc) Dysphagia, unspecified type (primary encounter diagnosis) Orthostatic hypotension Plan 12/31/2023 Visit: Parkinson's disease: Continue on current Sinemet schedule Please make sure the iron is separate from the Sinemet by 2 hours as it interferes with the absorption of Sinemet and will make it not work well if at all. All Parkinson's disease medications should be taken within 15 or 30 minutes at the very latest so that they will work correctly as not getting them on time will put her at risk for falls Orthostatic hypotension (drops in blood pressure): Systolic blood pressure dropped 28 points today and the diastolic blood pressure dropped 14 points Please make sure you are changing positions slowly and drinking plenty of water. I will ask the nurses to measure your blood pressure sitting and standing for one week at approximately the same time every day If it continues to drop (top number 20 points or more or bottom number 10 points or more) please discuss with the prescriber of your blood pressure medication to see if any adjustments can be made Date/Time BP Sitting Heart Rate Sitting BP Standing Heart Rate Standing Dysphagia (difficulty swallowing): I am ordering speech therapy for them to assess this as well as work with you on your quiet voice At your convenience, please provide us with a copy of your advanced directives (living will and durable power of research attorney for healthcare): By Email: Send your document(s) to as an attachment in either PDF, TIFF, or JPEG format. By Mail: [facility] Information Management, [employer] Advance Directive Processing [address] [place], [place] [address] By In person at any [facility] location Please note: You can use the address or fax number regardless of which [facility] you utilize, and we will make sure it is filed appropriately. Updated Movement Disorders Medication Schedule: Medications 8AM 12PM 4PM 8PM Sinemet 25/100 2 1.5 1.5 1.5 Return at or around: 03/31/24 Level of service : 21107 ( 30-39 min). Time spent 39 min on the day of service, which included preparing to see the patient, [id number] patient care, completing clinical documentation, obtaining and/or reviewing separately obtained history, performing a medically appropriate examination, counseling and educating the patient/family/caregiver, and ordering medications, tests, or procedures. Em Flynn APRN.RUPALI documented in this encounterBlanchard Valley Health System09-19-2024 NoteHNO ID: [id number] Author: EM FLYNN APRN.CNP Service: ? Author Type: Nurse Practitioner Type: Progress Notes Filed: 12/31/2023 20:30 Note Text: [facility] - FOLLOW UP EVALUATION Alexandra Arreguin APRN.CNP [address] [facility] [address] [place] [id number] Dear Alexandra Arreguin APRN.CNP: I had the pleasure of seeing Ms. Cohn for follow-up today. As you know she is a 83 year old right-handed female with a history of Parkinson's disease since 2019. She is seen with a caregiver at her facility. Subjective Previous Plan-09/29/2023 Visit: Parkinson's disease: I have ordered physical therapy for you. You have been provided with a hand out on freezing of gait and a booklet on speech, swallowing, and drooling. Please do not hesitate to let me know if you have any questions about anything you read. Continue exercising Continue Sinemet as scheduled Orthostatic hypotension (drops in blood pressure): Stay well hydrated and change positions slowly. Dysphagia: Please let me know if you change your mind about a swallowing test Double vision: Please follow up with your feed mixer helper as scheduled Interested in clinical research? Not currently Interval History: Her main concern is dizziness and feeling like she cannot stay upright when she is walking. 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) Dyskinesia: yes Prior Anti-Parkinson Therapies Carbidopa/Levodopa Questionnaires: In addition, the following areas that may be affected by abnormal involuntary movements were evaluated: Daily activities Difficulties with eating: Difficulties in dressing: Difficulties with hygiene activities: Difficulties with handwriting: Difficulties with doing hobbies and other activities: Difficulties turning in bed: Difficulties getting out of bed, car or chair: Tremors/Gait/Balance Shaking or tremors: Once in a while especially when meds are late Walking and balance problems: She uses a walker and does this independently as well as with a PT Number of falls in the Last Month: She had one fall when she had been incontinent and slipped on the urine and fell. Gait freezing: Yes Autonomic/Pain Lightheadeness on standing: Yes Urinary problems: Yes-incontinence Constipation problems: No Pain and other sensations: She is seen by an immunology specialist for her hip. Speech/Swallowing Speech problems: Her voice is quieter. Drooling: This happens at night Chewing and swallowing problems: Sometimes Sleep/Fatigue Sleep problems: She has slept very well the last two nights but sometimes she does not sleep at all. Daytime sleepiness: She tries not to but sometimes she will fall asleep watching TV. Fatigue: Yes Mood/Behavior Depression: She said is not depressed. Anxiety: She is anxious sometimes about her condition. Finally, the following table shows the patient's overall global physical and mental health using the PROMIS scale: *PROMIS-10 scoring scale: mean = 50, over 50 is above average, under 50 is below average In addition, the following non-motor symptoms and palliative concerns were evaluated: Sleep/Fatigue: REM sleep behavior disorder: No Restless Legs Syndrome: Yes This does not happen all the time and she can usually kick it away. Leg swelling: Yes Impaired sense of smell: Yes Cognition: Cognitive impairment: no MoCA Cognitive assessment: Hallucinations and delusions: yes A few times a day she will see someone run past her and then she realizes they are not there. She is not bothered by it. Apathy: no Impulse control disorder: No Palliative Concerns: Caregiver burden: Spiritual concerns: No Advanced directives on file: No Not on file, but she has been provided with ways to do this Palliative services: Therapy and Exercise: Last PT Date: December 2023 Last OT Date: July [address] Date: Exercises Regularly: Yes She walks in the halls. ALLERGIES Allergen Reactions Percocet [Oxycodone* Rash, Itching Current Outpatient Medications Medication Sig celecoxib (CELEBREX) 200 mg capsule alendronate (FOSAMAX) 70 mg tablet Take 70 mg by mouth one time a week. In AM with cup of water on empty stomach. Nothing else by mouth and stay upright for 30 min. Ceramides 1,3,6-11 (CERAVE DAILY MOISTURIZING) lotn Apply to affected area. DULoxetine (CYMBALTA) 20 mg capsule 2 capsules once daily. ascorbic acid, vitamin C, (VITAMIN C) 500 mg tablet Take 1 tablet by mouth two times a day. ferrous sulfate 325 mg (65 mg iron) tablet Take by mouth. polyethylene glycol 3350 1 (more content not included)...[facility]08-09-2024 Note* Letter - Coordinator, Mammography - 11/20/2023 10:34 AM EDT November 20, 2023 PID: [id number] Monisha Cohn [address] [place] [address] Dear Ms. Cohn, We are pleased to inform you that the results of your recent breast imaging exam on 11/20/2023 are normal. Early detection of cancer is very important. We also understand recommendations regarding breast cancer screening are controversial. Please discuss with your primary care provider which strategy is best for you and whether a mammogram is right for you. Your imaging studies and report will be kept on file at [facility] as part of your permanent medical record and are available for your continuing care. Thank you for allowing us to help in meeting your health care needs. Sincerely, Dr. Mccormick Interpreting Radiologist [facility] (Normal over 40) [facility]08-09-2024 Note* Letter - Coordinator, Mammography - 11/20/2023 10:34 AM EDT November 20, 2023 PID: [id number] Monisha Cohn [address] [place] [address] Dear Ms. Cohn, We are pleased to inform you that the results of your recent breast imaging exam on 11/20/2023 are normal. Early detection of cancer is very important. We also understand recommendations regarding breast cancer screening are controversial. Please discuss with your primary care provider which strategy is best for you and whether a mammogram is right for you. Your imaging studies and report will be kept on file at [facility] as part of your permanent medical record and are available for your continuing care. Thank you for allowing us to help in meeting your health care needs. Sincerely, Dr. Mccormick Interpreting Radiologist [facility] (Normal over 40) [facility]08-09-2024 Miscellaneous Notes* Letter - Coordinator, Mammography - 11/20/2023 10:34 AM EDT November 20, 2023 PID: [id number] Monisha Cohn [address] [place] [address] Dear Ms. Cohn, We are pleased to inform you that the results of your recent breast imaging exam on 11/20/2023 are normal. Early detection of cancer is very important. We also understand recommendations regarding breast cancer screening are controversial. Please discuss with your primary care provider which strategy is best for you and whether a mammogram is right for you. Your imaging studies and report will be kept on file at [facility] as part of your permanent medical record and are available for your continuing care. Thank you for allowing us to help in meeting your health care needs. Sincerely, Dr. Mccormick Interpreting Radiologist [facility] (Normal over 40) * Letter - Coordinator, Mammography - 11/20/2023 10:34 AM EDT November 20, 2023 PID: [id number] Monisha Cohn [address] [place] [address] Dear Ms. Cohn, We are pleased to inform you that the results of your recent breast imaging exam on 11/20/2023 are normal. Early detection of cancer is very important. We also understand recommendations regarding breast cancer screening are controversial. Please discuss with your primary care provider which strategy is best for you and whether a mammogram is right for you. Your imaging studies and report will be kept on file at [facility] as part of your permanent medical record and are available for your continuing care. Thank you for allowing us to help in meeting your health care needs. Sincerely, Dr. Mccormick Interpreting Radiologist [facility] (Normal over 40) documented in this encounterBlanchard Valley Health System08-09-2024 History of Present illness Narrative* Chitra Larson Tech - 11/20/2023 7:45 AM EDT Radiology Service Progress Note PATIENT NAME: Monisha Cohn DATE OF SERVICE: November 20, 2023 TIME: 9:23 AM PATIENT IDENTITY VERIFICATION COMPLETED USING TWO (2) IDENTIFIERS: Name and Date of confirmedby patient verbally. FALL SCREENING: Has the patient had 2 falls in the last year or 1 fall with injury or currently using an Ambulatory Assistive Device (Walker, Cane, Wheelchair, Crutches, etc.)? Yes, Patient High Riskfor Falls What interventions were put in place to prevent falls during this visit? Instructed Patient to Remain Seated (Not on Exam Table) Until Exam PATIENT GENDER DATA: Female. status: : No status: NO. PATIENT RELEVANT IMPLANT DATA REVIEWED: Not Applicable PATIENT PRESENTS WITH AN IMPLANTABLE OR ATTACHED GLASS CUT OFF SUPERVISOR: No RADIOLOGY DEPARTMENT: Mammography PERIPHERAL IV DATA: Not applicable SIGNED BY: Valentin Manzanares November 20, 2023 9:23 AM documented in this encounterBlanchard Valley Health System08-09-2024 NoteHNO ID: [id number] Author: CHITRA LARSON Tech Service: ? Author Type: Water Pollution Control Inspector Type: Progress Notes Filed: 11/20/2023 09:24 Note Text: Radiology Service Progress Note PATIENT NAME: Monisha Cohn DATE OF SERVICE: November 20, 2023 TIME: 9:23 AM PATIENT IDENTITY VERIFICATION COMPLETED USING TWO (2) IDENTIFIERS: Name and Date of confirmed by patient verbally. FALL SCREENING: Has the patient had 2 falls in the last year or 1 fall with injury or currently using an Ambulatory Assistive Device (Walker, Cane, Wheelchair, Crutches, etc.)? Yes, Patient High Risk for Falls What interventions were put in place to prevent falls during this visit? Instructed Patient to Remain Seated (Not on Exam Table) Until Exam PATIENT GENDER DATA: Female. status: : No status: NO. PATIENT RELEVANT IMPLANT DATA REVIEWED: Not Applicable PATIENT PRESENTS WITH AN IMPLANTABLE OR ATTACHED GLASS CUT OFF SUPERVISOR: No RADIOLOGY DEPARTMENT: Mammography PERIPHERAL IV DATA: Not applicable SIGNED BY: Valentin Manzanares November 20, 2023 9:23 [facility]07-10-2024 Telephone encounter Note* Telephone Encounter - Rosie Cruz RN - 10/21/2023 10:01 AM EDT Received voicemail 10-20-23 at 12:28 PM. Nd this is Rissa at [facility]. Calling in regards to Monisha Cohn. 42. She gotan order from the orthopedic to do therapy which they have started but they wanted to know what wastorn and I believe Dr. Ramirez was the one who did the MRI, or read the MRI. If someone could fax us over the notes they would appreciate it. The fax number is [phone]. If you have any questions you can call me back at [phone]. Thank you." Last office visit note with Marie Ramirez PA-C & imaging report faxed to [facility] PT department. [facility]07-10-2024 Miscellaneous Notes* Telephone Encounter - Rosie Cruz RN - 10/21/2023 10:01 AM EDT Received voicemail 10-20-23 at 12:28 PM. Nd this is Rissa at [facility]. Calling in regards to Monisha Cohn. 42. She gotan order from the orthopedic to do therapy which they have started but they wanted to know what wastorn and I believe Dr. Ramirez was the one who did the MRI, or read the MRI. If someone could fax us over the notes they would appreciate it. The fax number is [phone]. If you have any questions you can call me back at [phone]. Thank you." Last office visit note with Marie Ramirez PA-C & imaging report faxed to [facility] PT department. documented in this encounterBlanchard Valley Health System07-05-2024 Telephone encounter Note * Telephone Encounter - Karolina Sanders RN - 10/16/2023 2:31 PM EDT Called back number and spoke with therapist. Told her Yara's note "Range of motion and rotator cuffstrengthening Claudia Wood PA-C " [facility] Work Phone: [phone]) 559-150507-05-2024 Miscellaneous Notes* Telephone Encounter - Karolina Sanders RN - 10/16/2023 2:31 PM EDT Called back number and spoke with therapist. Told her Yara's note "Range of motion and rotator cuffstrengthening Claudia Wood PA-C " * Telephone Encounter - Edwina Flanagan - 10/16/2023 10:02 AM EDT Patient is staying at a facility and is going physical therapy there. They were inquiring about what specific program needs to be done for the patient, please call facility at [phone], they alsoasked if we could send any office visit notes. documented in this encounterBlanchard Valley Health System07-05-2024 Telephone encounter Note * Telephone Encounter - Edwina Flanagan - 10/16/2023 10:02 AM EDT Patient is staying at a facility and is going physical therapy there. They were inquiring about what specific program needs to be done for the patient, please call facility at [phone], they alsoasked if we could send any office visit notes. [facility]06-21-2024 NoteHNO ID: [id number] Author: LAURA JASSO MD Service: ? Author Type: Physician Type: Progress Notes Filed: 10/02/2023 10:01 Note Text: ORTHOPAEDIC SHOULDER AND ELBOW SERVICE HISTORY AND PHYSICAL EXAM REFERRING PROVIDER: Marie Ramirez [address] [place], [place] [id number] CHIEF COMPLAINT: left shoulder pain PAIN EVALUATION 10/02/2023 0852 Pain Location: Shoulder-Left Description: Radiating;Aching;Sharp radiates to elbow, also to wrist Frequency: Continuous Intervention/Comfort measure: Heat;Medication;Reposition;Relaxation;Exercise tylenol, tramadol Comments: [facility] Monisha Cohn is a 83 year old female presents to clinic with left shoulder pain. Began about a month ago without acute injury. She is having pain at night. Pain is over the lateral shoulder. Taking tramadol and Tylenol. Currently residing at a rehab facility while rehabilitating her left hip, which recently had surgery. Before the hip fracture she lived at home with her and friend. 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 SOCIAL HISTORY: Social History Tobacco Use Smoking status: Former Types: Cigarettes Passive exposure: Never Smokeless tobacco: Never Substance Use Topics Alcohol use: Never Drug use: Never ALLERGIES: ALLERGIES Allergen Reactions Percocet [Oxycodone* Rash, Itching MEDICATIONS: Current Outpatient Medications on File Prior to Visit Medication Sig alendronate (FOSAMAX) 70 mg tablet Take 70 mg by mouth one time a week. In AM with cup of water on empty stomach. Nothing else by mouth and stay upright for 30 min. Ceramides 1,3,6-11 (CERAVE DAILY MOISTURIZING) lotn Apply to affected area. DULoxetine (CYMBALTA) 20 mg capsule 2 capsules once daily. ascorbic acid, vitamin C, (VITAMIN C) 500 mg tablet Take 1 tablet by mouth two times a day. ferrous sulfate 325 mg (65 mg iron) tablet Take by mouth. polyethylene glycol 3350 17 gram/dose powder Take by mouth. senna-docusate (SENNA-S) 8.6-50 mg per tablet Take by mouth. Acetaminophen 500 mg cap Take by mouth. metoprolol tartrate, short acting, (LOPRESSOR) 25 mg tablet 0.5 tablets two times a day. MYRBETRIQ 25 mg Tb24 1 tablet once daily. traMADol (ULTRAM) 50 mg tablet psyllium (KONSYL) packet Take by mouth. cyanocobalamin (VITAMIN B-12) 500 mcg tablet Take 1 tablet by mouth once daily. atorvastatin (LIPITOR) 40 mg tablet Take 1 tablet by mouth every afternoon. losartan (COZAAR) 25 mg tablet Take 1 tablet by mouth every afternoon. carbidopa-levodopa (SINEMET) 25-100 mg per tablet Take 2 tablet daily at 8AM, 2 tablet daily at 12PM, 2 tablet daily at 4PM, and 1.5 tablet daily at 8PM. aspirin, enteric coated (ASPIRIN, ENTERIC COATED) 81 mg EC tablet Take 81 mg by mouth once daily. cholecalciferol, vitamin D3, (VITAMIN D3 ORAL) Take by mouth once daily. No current facility-administered medications on file prior to visit. PHYSICAL EXAMINATION: LMP (LMP Unknown) EXAM: Shoulder Musculoskeletal Exam Inspection Left Left shoulder inspection is normal. Palpation Left Tenderness: present Range of Motion Left Active ROM: abnormal and pain. Active forward elevation: 140 (painful arc 90-140). Passive forward elevation: 140. Shoulder active abduction: 90. Passive abduction: 90. Active external rotation at side: 30. Passive external rotation at side: 30. Internal rotation: L5. Strength Left External rotation: 4+/5. Internal rotation: 4+/5. Abduction: 4/5. Abduction is affected by pain. Neurovascular Left Left shoulder nerve sensation is normal. Scapula Left Left shoulder scapula is normal. Special Tests Left Rotator Cuff Signs Neer's test: positive Cho test: positive External rotation lag sign: negative Supraspinatus: positive Belly press test: negative Painful arc test: positive Lift-off sign: negative Bear hug test: negative Drop arm test: negative Biceps/bambi Signs [place]'s test: positive Michael deformity: negative Speed's test: negative AC Joint Signs Active horizontal adduction pain: negative Instability Signs Joint laxity: negative General Constitutional: appears stated age Psychiatric: normal mood and affect and no acute distress Neurological: alert and oriented x3 IMAGING: Radiographs of the left sh (more content not included)...[facility]06-21-2024 History of Present illness Narrative* Laura Jasso MD - 10/02/2023 8:54 AM EDTAssociated Order(s): Large Joint Arthro/Inj: L shoulder joint Post-Procedure Diagnose(s): Acute pain of left shoulder Images from the original note were not included. ORTHOPAEDIC SHOULDER & ELBOW SERVICE HISTORY & PHYSICAL EXAM REFERRING PROVIDER: Marie Ramirez [address] [place], [place] [id number] CHIEF COMPLAINT: left shoulder pain PAIN EVALUATION 10/02/2023 0852 Pain Location: Shoulder-Left Description: Radiating;Aching;Sharp radiates to elbow, also to wrist Frequency: Continuous Intervention/Comfort measure: Heat;Medication;Reposition;Relaxation;Exercise tylenol, tramadol Comments: [facility] Monisha Cohn is a 83 year old female presents to clinic with left shoulder pain. Began about a month ago without acute injury. She is having pain at night. Pain is over the lateral shoulder. Taking tramadol and Tylenol. Currently residing at a rehab facility while rehabilitating her left hip, which recently had surgery. Before the hip fracture she lived at home with her and friend. Treatments and therapies to-date include: Activity modification/changes to daily activities: Yes Medical management (Tylenol, NSAIDs): Yes Physical therapy within the past 6 months for at least 4 weeks: No Corticosteroid Injection: No PAST MEDICAL HISTORY: PAST MEDICAL HISTORY Diagnosis Date [place] of skin 10/09/2022 Arteriosclerosis of coronary artery 07/31/2022 Essential (primary) hypertension 07/31/2022 Fibromyalgia 10/09/2022 Gout 03/31/2022 Myocardial infarction (HCC) 10/09/2022 Nonrheumatic tricuspid valve regurgitation 07/31/2022 Parkinson's disease (HCC) 07/31/2022 PAST SURGICAL HISTORY: No past surgical history on file. SOCIAL HISTORY: Social History Tobacco Use Smoking status: Former Types: Cigarettes Passive exposure: Never Smokeless tobacco: Never Substance Use Topics Alcohol use: Never Drug use: Never ALLERGIES: ALLERGIES Allergen Reactions Percocet [Oxycodone* Rash, Itching MEDICATIONS: Current Outpatient Medications on File Prior to Visit Medication Sig alendronate (FOSAMAX) 70 mg tablet Take 70 mg by mouth one time a week. In AM with cup of water on empty stomach. Nothing else by mouth and stay upright for 30 min. Ceramides 1,3,6-11 (CERAVE DAILY MOISTURIZING) lotn Apply to affected area. DULoxetine (CYMBALTA) 20 mg capsule 2 capsules once daily. ascorbic acid, vitamin C, (VITAMIN C) 500 mg tablet Take 1 tablet by mouth two times a day. ferrous sulfate 325 mg (65 mg iron) tablet Take by mouth. polyethylene glycol 3350 17 gram/dose powder Take by mouth. senna-docusate (SENNA-S) 8.6-50 mg per tablet Take by mouth. Acetaminophen 500 mg cap Take by mouth. metoprolol tartrate, short acting, (LOPRESSOR) 25 mg tablet 0.5 tablets two times a day. MYRBETRIQ 25 mg Tb24 1 tablet once daily. traMADol (ULTRAM) 50 mg tablet psyllium (KONSYL) packet Take by mouth. cyanocobalamin (VITAMIN B-12) 500 mcg tablet Take 1 tablet by mouth once daily. atorvastatin (LIPITOR) 40 mg tablet Take 1 tablet by mouth every afternoon. losartan (COZAAR) 25 mg tablet Take 1 tablet by mouth every afternoon. carbidopa-levodopa (SINEMET) 25-100 mg per tablet Take 2 tablet daily at 8AM, 2 tablet daily at 12PM, 2 tablet daily at 4PM, and 1.5 tablet daily at 8PM. aspirin, enteric coated (ASPIRIN, ENTERIC COATED) 81 mg EC tablet Take 81 mg by mouth once daily. cholecalciferol, vitamin D3, (VITAMIN D3 ORAL) Take by mouth once daily. No current facility-administered medications on file prior to visit. PHYSICAL EXAMINATION: LMP (LMP Unknown) EXAM: Shoulder Musculoskeletal Exam Inspection Left Left shoulder inspection is normal. Palpation Left Tenderness: present Range of Motion Left Active ROM: abnormal and pain. Active forward elevation: 140 (painful arc 90-140). Passive forward elevation: 140. Shoulder active abduction: 90. Passive abduction: 90. Active external rotation at side: 30. Passive external rotation at side: 30. Internal rotation: L5. Strength Left External rotation: 4+/5. Internal rotation: 4+/5. Abduction: 4/5. Abduction is affected by pain. Neurovascular Left Left shoulder nerve sensation is normal. Scapula Left Left shoulder scapula is normal. Special Tests Left Rotator Cuff Signs Neer's test: positive Cho test: positive External rotation lag sign: negative Supraspinatus: positive Belly press test: negative Painful arc test: positive Lift-off sign: negative Bear hug test: negative Drop arm test: negative Biceps/bambi Signs [place]'s test: positive Michael deformity: negative Speed's test: negative AC Joint Signs Active horizontal adduction pain: negative Instability Signs Joint laxity: negative General Constitutional: appears stated age Psychiatric: normal mood and affect and no acute distress Neurological: alert and oriented x3 IMAGING: Radiographs of the left shoulder personally reviewed today. Date of exam 09/29/23. This is a 3-view shoulder exam, including AP, outlet, and axillary views. My interpretation of the examination: mild degenerative changes, some sclerosis of the greater tuberosity and acromion consistent with rotator cuff tearing MEDICAL DECISION MAKING: (M25.512) Acute pain of left shoulder Comment: Pain likely due to increased use in the setting of recent injury Plan: CONSULT TO ORTHOPAEDICS A comprehensive physical therapy program was ordered today after discussion of conservative treatment. Physical therapy would be expected to provide benefit within approximately 6 to 12 weeks of starting the program. This will likely involve both in person visits as well as a structured home program. The importance of adherence to the physical therapy program for the best possible outcome was discussed today. Large Joint Arthro/Inj: L shoulder joint 10/02/2023 10:00 AM The procedure site was prepped in the usual sterile fashion. Site: L shoulder joint Medications: 80 mg triamcinolone acetonide 40 mg/mL Anesthetics: 4 mL bupivacaine (PF) 0.25 % (2.5 mg/mL) Outcome: Tolerated well, no immediate complications Post-injection instructions were reviewed with the patient and the patient voiced understanding of these instructions. Medical decision making for today's visit was conducted with review of the following data sources: History, exam, imaging REFERRING PHYSICIAN: The patient was referred to co for consultation by the following physician. This consultation note will be sent to the following physician by either mail or electronic medical record. Marie Ramirez [phone] [id number] Laura Jasso MD Shoulder & Elbow Surgeon Department of [facility] documented in this encounterBl[facility]06-[facility] History of Present illness Narrative* Kelly Stewart Tech - 09/29/2023 10:00 AM EDT Radiology Service Progress Note PATIENT NAME: Monisha Cohn DATE OF SERVICE: September 29, 2023 TIME: 10:18 AM PATIENT IDENTITY VERIFICATION COMPLETED USING TWO (2) IDENTIFIERS: Name and Date of confirmedby patient verbally. FALL SCREENING: Has the patient had 2 falls in the last year or 1 fall with injury or currently using an Ambulatory Assistive Device (Walker, Cane, Wheelchair, Crutches, etc.)? No PATIENT GENDER DATA: Female. status: : No status: NO. PATIENT RELEVANT IMPLANT DATA REVIEWED: Not Applicable PATIENT PRESENTS WITH AN IMPLANTABLE OR ATTACHED GLASS CUT OFF SUPERVISOR: No RADIOLOGY DEPARTMENT: General X-ray: Exam(s) Completed: Upper Extremity X- Ray(s): Shoulder, TRUE AP/ AXILLARY / SUPRA OUTLET left PERIPHERAL IV DATA: Not applicable SIGNED BY: Valentin Siddiqui September 29, 2023 10:18 AM documented in this encounterBlanchard Valley [facility]06-18-2024 NoteHNO ID: [id number] Author: KELLY STEWART Tech Service: Radiology Author Type: Water Pollution Control Inspector Type: Progress Notes Filed: 09/29/2023 10:18 Note Text: Radiology Service Progress Note PATIENT NAME: Monisha Cohn DATE OF SERVICE: September 29, 2023 TIME: 10:18 AM PATIENT IDENTITY VERIFICATION COMPLETED USING TWO (2) IDENTIFIERS: Name and Date of confirmed by patient verbally. FALL SCREENING: Has the patient had 2 falls in the last year or 1 fall with injury or currently using an Ambulatory Assistive Device (Walker, Cane, Wheelchair, Crutches, etc.)? No PATIENT GENDER DATA: Female. status: : No status: NO. PATIENT RELEVANT IMPLANT DATA REVIEWED: Not Applicable PATIENT PRESENTS WITH AN IMPLANTABLE OR ATTACHED GLASS CUT OFF SUPERVISOR: No RADIOLOGY DEPARTMENT: General X-ray: Exam(s) Completed: Upper Extremity X-Ray(s): Shoulder, TRUE AP / AXILLARY / SUPRA OUTLET left PERIPHERAL IV DATA: Not applicable SIGNED BY: Valentin Siddiqui September 29, 2023 10:18 AMJ.W. Ruby Memorial [id number] Instructions* Patient Instructions* Em Flynn APRN.CEMENTER MACHINE - 09/29/2023 9:38 AM EDT It was a pleasure to see you today. We addressed the following diagnoses: Parkinson's disease without dyskinesia or fluctuating manifestations (hcc) (primary encounter diagnosis) Orthostatic hypotension Hallucinations Dysphagia, unspecified type My recommendations are as follows: 09/29/2023 Visit: Parkinson's disease: I have ordered physical therapy for you. You have been provided with hand outs on freezing of gait and drooling. Please do not hesitate to let me know if you have any questions about anything you read. Continue exercising Continue Sinemet as scheduled Orthostatic hypotension (drops in blood pressure): Stay well hydrated and change positions slowly. Dysphagia: Please let me know if you change your mind about a swallowing test Double vision: Please follow up with your feed mixer helper as scheduled Interested in clinical research? Not currently Movement Disorders Medication Schedule: Medications 8AM 12PM 4PM 8PM Sinemet 25/100 2 1.5 1.5 1.5 Return at or around: 12/30/23 If there are any concerns before your next visit, please call or you can send a message through [employer]. You can also now schedule and select appointments through [employer]. Em Flynn APRN.RUPALI documented in this encounterBlanchard Valley [facility]06-18-2024 History of Present illness Narrative* Em Flynn APRN.CNP - 09/29/2023 9:00 AM EDT [facility] - FOLLOW UP EVALUATION Alexandra Arreguin APRN.CNP [address] [address] Dear Alexandra Arreguin APRN.CNP: I had the pleasure of seeing Ms. Cohn for follow-up today. As you know she is a 83 year old right-handed female with a history of Parkinson's disease since 2019. She is seen alone. Subjective 07/06/23 visit: Parkinson's disease: Reduce your 12pm dose to 1.5 tablets [...] your water intake and change positions slowly. I will have the nurses measure your blood pressure sitting and standing for one week at approximately the same time every day If it continues to drop (top number 20 points or more or bottom number 10points or more) please discuss with your licensing services clerk. Hallucinations: I am hoping that the reduction in Sinemet helps these, but if it does not and they are bothering you, please let me know. Dysphagia (difficulty swallowing): I am ordering speech therapy for this and your quiet speech Double vision: Please follow up with your feed mixer helper Left arm pain/numbness and tingling: I have ordered a neck MRI. Interval History: She said she has been doing fair but that overall since she has accepted having the diagnosis of Parkinson's disease, she is better. She does still have pain constantly but was toldby orthopedic surgeon that it would be too risky to operate. She fell on Thursday when she was incontinent with urine all over the floor so she slipped on it and fell. She was using a walker but she said she thinks she fell because she did not have her shoes on. She is getting an xray of her injured arm after today's visit. 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) Dyskinesia: no Prior Anti-Parkinson Therapies Carbidopa/Levodopa Questionnaires: In addition, the following areas that may be affected by abnormal involuntary movements were evaluated: Daily activities Difficulties with eating: Difficulties in dressing: Difficulties with hygiene activities: Difficulties with handwriting: Difficulties with doing hobbies and other activities: Difficulties turning in bed: Difficulties getting out of bed, car or chair: Tremors/Gait/Balance Shaking or tremors: Not bad but some Walking and balance problems: Yes Number of falls in the Last Month: 1 Gait freezing: Yes Autonomic/Pain Lightheadeness on standing: If she gets up slow, she is fine. Urinary problems: Incontinence-on Myrbetriq Constipation problems: No Pain and other sensations: Chronic Speech/Swallowing Speech problems: Sometimes words just do not come out and others tell her she talks too soft Drooling: Both during the day and at night Chewing and swallowing problems: Yes but she does not want an MBS. She takes her pills with puddingand this helps. Sleep/Fatigue Sleep problems: No Daytime sleepiness: She naps daily. 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 Restless Legs Syndrome: No Leg swelling: Yes Impaired sense of smell: Yes Cognition: Cognitive impairment: no MoCA Cognitive assessment: Hallucinations and delusions: yes She sometimes feels her is next to her when he is not. Every once in a while she feels she is standing on the ceiling and then she blinks and the room rightsitself. She sometimes feels she has paper in her hand. They are not scary but she worries about having them. These started before she moved to [place] and after she had her heart attack while in the hospital. Apathy: no She has motivation and is trying really hard to get out of the facility and move [facility]. Impulse control disorder: No Palliative Concerns: Caregiver burden: Spiritual concerns: No Advanced directives on file: No I offered a SW consult but she wants to wait until she moves back to [place]. Palliative services: Therapy and Exercise: Last PT Date: June 2023 Last OT Date: July [address] Date: Exercises Regularly: Yes She walks in the halls. ALLERGIES Allergen Reactions Percocet [Oxycodone* Rash, Itching Current Outpatient Medications Medication Sig alendronate (FOSAMAX) 70 mg tablet Take 70 mg by mouth one time a week. In AM with cup of water on empty stomach. Nothing else by mouth and stay upright for 30 min. Ceramides 1,3,6-11 (CERAVE DAILY MOISTURIZING) lotn Apply to affected area. DULoxetine (CYMBALTA) 20 mg capsule 2 capsules once daily. ascorbic acid, vitamin C, (VITAMIN C) 500 mg tablet Take 1 tablet by mouth two times a day. ferrous sulfate 325 mg (65 mg iron) tablet Take by mouth. polyethylene glycol 3350 17 gram/dose powder Take by mouth. senna-docusate (SENNA-S) 8.6-50 mg per tablet Take by mouth. Acetaminophen 500 mg cap Take by mouth. metoprolol tartrate, short acting, (LOPRESSOR) 25 mg tablet 0.5 tablets two times a day. MYRBETRIQ 25 mg Tb24 1 tablet once daily. traMADol (ULTRAM) 50 mg tablet psyllium (KONSYL) packet Take by mouth. cyanocobalamin (VITAMIN B-12) 500 mcg tablet Take 1 tablet by mouth once daily. atorvastatin (LIPITOR) 40 mg tablet Take 1 tablet by mouth every afternoon. losartan (COZAAR) 25 mg tablet Take 1 tablet by mouth every afternoon. carbidopa-levodopa (SINEMET) 25-100 mg per tablet Take 2 tablet daily at 8AM, 2 tablet daily at 12PM, 2 tablet daily at 4PM, and 1.5 tablet daily at 8PM. aspirin, enteric coated (ASPIRIN, ENTERIC COATED) 81 mg EC tablet Take 81 mg by mouth once daily. cholecalciferol, vitamin D3, (VITAMIN D3 ORAL) Take by mouth once daily. No current facility-administered medications for this visit. Objective Vital Signs: BP 106/69 (BP Site: Left Arm, BP Position: Sitting, BP Cuff Size: Regular Adult) Pulse (!) 58 Ht 157.5 cm (5' 2") Wt 73.9 kg (163 lb) LMP (LMP Unknown) SpO2 98% BMI 29.81 kg/m Orthostatic Vitals: None for this encounter No LMP recorded (lmp unknown). Patient has had a hysterectomy. Body mass index is 29.81 kg/m . Movement Disorders Scales Performed: MDS-UPDRS Motor subscale condition of exam Medication Off/On/Naiive ON Time of UPDRS 0930 Time of Last Medication 07 Last Medication Taken Sinemet 25/100, 1.5 tab [...] the mouth, such as less spontaneous smiling, butlips not parted. Rigidity Neck 2-Mild. Rigidity detected without the activation maneuver, but full range of motion is easily achieved. Rigidity Right Upper Extremity 0-Normal. No rigidity. Rigidity Left Upper Extremity 0-Normal. No rigidity. Rigidity Right Lower Extremity 0-Normal. No rigidity. Rigidity Left Lower Extremity 1-Slight. Rigidity only detected with activation maneuver. Finger Taps Right 2-Mild. a) 3 to 5 interruptions during tapping, b) mild slowing, c) the amplitudedecrements midway in the 10-tap sequence. Finger Taps Left 3-Moderate. a) more than 5 interruptions during tapping or at least one longer arrest (freeze) in ongoing movement, b) moderate slowing, c) the amplitude decrements starting after the 1st tap. Hand Movements Right 2-Mild. a) 3 to 5 interruptions during the movements, b) mild slowing, c) the amplitude decrements midway in the task. Hand Movements Left 3-Moderate. a) more than 5 interruptions during the movement or at least one longer arrest (freeze) in ongoing movement, b) moderate slowing, c) the amplitude decrements starting after the 1st [id number] sequence. Arm Movements Right 1-Slight. a) the regular rhythm is broken with one or two interruptions or hesitations of the movement, b) slight slowing, c) the amplitude decrements near the end of the sequence. Arm Movements Left 2-Mild. a) 3 to 5 interruptions during the movements, b) mild slowing, c) the amplitude decrements midway in the sequence. Toe Taps Right 3-Moderate. a) [...] after the first tap. Arise From Chair 3-Moderate. Needs to push off, but tends to fall back, or may have to try more than one time using arms of chair, but can get up without help. Gait 4-Severe. Cannot walk at all or only with another person's assistance. (She does not have her walker here and needs it to walk and with assistance due to her recently broken hip and falls) Gait Freezing 0-Normal. No freezing. Posture Stability 4-Severe. Very unstable, tends to lose balance spontaneously or with just a gentle pull on the shoulders. Posture 2-Mild. Definite flexion, scoliosis or leaning to one side, but patient can correct postureto normal posture when asked to do so. [...] subscale totals Left Total 16 Right Total 10 Midline Total 22 Tremor Total / 10 0 PIGD Total / 3 8 Overall Total 48 % Change Compared to Last Filed Total Pertinent Studies 05/01/[address] cervical spine [address] Impression: No acute intracranial process. No evidence of acute cervical spinal fracture or spondylolisthesis. Degenerative changes. 02/01/[address] Findings: Normal soft tissue structures. There is hyperostosis frontalis internus. There is mild cerebral atrophy with widening of the extra-axial spaces and ventricular dilatation. There are areas of decreased attenuation within the white matter tracts of the supratentorial brain, consistent with microvascular disease changes.Normal basal ganglia and thalami. Normal brainstem. Normal cerebellum. There is no intracranial hemorrhage. There are no findings of an acute ischemic infarction. Normal visualized paranasal sinuses. 02/02/23 Vit D 34.0 Assessment and Plan: Assessment Mrs. Cohn is a right-handed 83 year old year old female with Parkinson's disease since 2019. Overall, she is stable and said she is better since she has now accepted that she has Parkinson's disease. She did have a recent fall when she slipped on liquid on the floor and she is having an x-ray done on her arm after this visit. The following are the current problems noted and addressed during this visit: Parkinson's disease without dyskinesia or fluctuating manifestations (hcc) (primary encounter diagnosis) Orthostatic hypotension Hallucinations Dysphagia, unspecified type Plan 09/29/2023 Visit: Parkinson's disease: I have ordered physical therapy for you. You have been provided with a hand out on freezing of gait and a booklet on speech, swallowing, anddrooling. Please do not hesitate to let me know if you have any questions about anything you read. Continue exercising Continue Sinemet as scheduled Orthostatic hypotension (drops in blood pressure): Stay well hydrated and change positions slowly. Dysphagia: Please let me know if you change your mind about a swallowing test Double vision: Please follow up with your feed mixer helper as scheduled Interested in clinical research? Not currently Updated Movement Disorders Medication Schedule: Medications 8AM 12PM 4PM 8PM Sinemet 25/100 2 1.5 1.5 1.5 Return at or around: 12/30/23 Level of service : 82458 ( 30-39 min). Time spent 37 min on the day of service, which included preparing to see the patient, [id number] patient care, completing clinical documentation, obtaining and/or reviewing separately obtained history, performing a medically appropriate examination, counseling and educating the patient/family/caregiver, and ordering medications, tests, or procedures. Em Flynn APRN.RUPALI documented in this encounterBlanchard Valley [facility]06-18-2024 NoteHNO ID: [id number] Author: EM FLYNN APRN.CNP Service: ? Author Type: Nurse Practitioner Type: Progress Notes Filed: 09/30/2023 07:37 Note Text: [facility] - FOLLOW UP EVALUATION Alexandra Arreguin APRN.CNP [address] [address] Dear Alexandra Arreguin APRN.CNP: I had the pleasure of seeing Ms. Cohn for follow-up today. As you know she is a 83 year old right-handed female with a history of Parkinson's disease since 2019. She is seen alone. Subjective 07/06/23 visit: Parkinson's disease: Reduce your 12pm dose to 1.5 tablets [...] your water intake and change positions slowly. I will have the nurses measure your blood pressure sitting and standing for one week at approximately the same time every day If it continues to drop (top number 20 points or more or bottom number 10 points or more) please discuss with your licensing services clerk. Hallucinations: I am hoping that the reduction in Sinemet helps these, but if it does not and they are bothering you, please let me know. Dysphagia (difficulty swallowing): I am ordering speech therapy for this and your quiet speech Double vision: Please follow up with your feed mixer helper Left arm pain/numbness and tingling: I have ordered a neck MRI. Interval History: She said she has been doing fair but that overall since she has accepted having the diagnosis of Parkinson's disease, she is better. She does still have pain constantly but was told by orthopedic surgeon that it would be too risky to operate. She fell on Thursday when she was incontinent with urine all over the floor so she slipped on it and fell. She was using a walker but she said she thinks she fell because she did not have her shoes on. She is getting an xray of her injured arm after today's visit. 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) Dyskinesia: no Prior Anti-Parkinson Therapies Carbidopa/Levodopa Questionnaires: In addition, the following areas that may be affected by abnormal involuntary movements were evaluated: Daily activities Difficulties with eating: Difficulties in dressing: Difficulties with hygiene activities: Difficulties with handwriting: Difficulties with doing hobbies and other activities: Difficulties turning in bed: Difficulties getting out of bed, car or chair: Tremors/Gait/Balance Shaking or tremors: Not bad but some Walking and balance problems: Yes Number of falls in the Last Month: 1 Gait freezing: Yes Autonomic/Pain Lightheadeness on standing: If she gets up slow, she is fine. Urinary problems: Incontinence-on Myrbetriq Constipation problems: No Pain and other sensations: Chronic Speech/Swallowing Speech problems: Sometimes words just do not come out and others tell her she talks too soft Drooling: Both during the day and at night Chewing and swallowing problems: Yes but she does not want an MBS. She takes her pills with pudding and this helps. Sleep/Fatigue Sleep problems: No Daytime sleepiness: She naps daily. 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 Restless Legs Syndrome: No Leg swelling: Yes Impaired sense of smell: Yes Cognition: Cognitive impairment: no MoCA Cognitive assessment: Hallucinations and delusions: yes She sometimes feels her is next to her when he is not. Every once in a while she feels she is standing on the ceiling and then she blinks and the room rights itself. She sometimes feels she has paper in her hand. They are not scary but she worries about having them. These started before she moved to [place] and after she had her heart attack while in the hospital. Apathy: no She has motivation and is trying really hard to get (more content not included)...[facility]06-12-2024 NoteIMPRESSION: INCOMPLETE: NEEDS ADDITIONAL IMAGING EVALUATION Probable benign nodule retroareolar region LEFT breast found using tomosynthesis today. Benign-appearing asymmetric glandular tissue upper outer aspect LEFT breast. Ultrasound correlation will be performed. LIMITED ULTRASOUND OF LEFT BREAST: 09/23/2023 RESULT: Comparison is made to exam dated: 08/13/2023 mammogram - [facility]. Ultrasound of was performed. Imaging was done with the patient in a chair. In the 3:00 region 2 cm from the nipple there is a 3 x 3 mm anechoic structure with a small amount of internal low level echoes consistent with debris. It is well-defined and would correspond to the mammographic nodule. The remainder of the surrounding tissue is unremarkable. IMPRESSION: BENIGN FINDING Small complicated cyst LEFT breast. Benign-appearing asymmetric glandular tissue. The patient can return next May for annual screening mammography. There is no sonographic evidence of malignancy. Return to annual mammogram screening schedule is recommended. Ajay Bullock M.D. FACR, FS ch/gi:09/23/2023 10:55:35 Multiple national specialty organizations have released breast cancer screening guidelines for women at average risk for developing breast cancer - guidelines that are based on both evidence and opinion, yet differ on when to start and how often to screen for breast cancer. With representation from Breast Imaging, Internal Medicine, Women's Health, Family Medicine, and Medical/Surgical Oncology, the [facility] has carefully reviewed the data and reached the following consensus: 1) All women should engage in shared decision-making with their providers to decide when to start and how often to screen; 2) All women should have the opportunity to start screening mammography at age 40; 3) For women ages 45-55, we recommend annual screening mammograms; 4) For women ages 55 and over, we support both the transition from an annual to a biennial interval if this aligns more with patient's values and preferences, or continuation with annual screening; 5) All women should discuss with their providers when to stop screening mammograms. Recycle Worker(s): Rafia Wagner RT(R)(M), [facility]; RT Nicole(R), [facility] OVERALL STUDY BIRADS: 2 Benign finding Document Scanner: Gi Transcribe Date/Time: Sep 23 2023 9:21A Dictated by : AJAY BULLOCK MD This examination was interpreted and the report reviewed and electronically signed by: AJAY BULLOCK MD on Sep 23 2023 10:55AM EST [place] [id number] History of Present illness Narrative* Tiago Mcnamara, ANCA - 09/23/2023 9:20 AM EDT Radiology Service Progress Note PATIENT NAME: Monisha Cohn DATE OF SERVICE: September 23, 2023 TIME: 9:42 AM PATIENT IDENTITY VERIFICATION COMPLETED USING TWO (2) IDENTIFIERS: Name and Date of confirmedby patient verbally. FALL SCREENING: Has the patient had 2 falls in the last year or 1 fall with injury or currently using an Ambulatory Assistive Device (Walker, Cane, Wheelchair, Crutches, etc.)? Yes, Patient High Riskfor Falls What interventions were put in place to prevent falls during this visit? Yellow "Falls Risk Wristband" Applied, Instructed Patient to Call for Help if Needed, Offered Assistance with Transfers/Clothing, Instructed Patient to Remain Seated (Not on Exam Table) Until Exam, and wheelchair. PATIENT GENDER DATA: Female. status: : No status: NO. PATIENT RELEVANT IMPLANT DATA REVIEWED: Not Applicable PATIENT PRESENTS WITH AN IMPLANTABLE OR ATTACHED GLASS CUT OFF SUPERVISOR: No RADIOLOGY DEPARTMENT: Mammography PERIPHERAL IV DATA: Not applicable SIGNED BY: RT Yumiko September 23, 2023 9:42 AM * Virginie Rios RDMS - 09/23/2023 9:20 AM EDT Radiology Service Progress Note PATIENT NAME: Monisha Cohn DATE OF SERVICE: September 23, 2023 TIME: 10:39 AM PATIENT IDENTITY VERIFICATION COMPLETED USING TWO (2) IDENTIFIERS: Name and Date of confirmedby patient verbally and Name and Date of confirmed by identification band. FALL SCREENING: Has the patient had 2 falls in the last year or 1 fall with injury or currently using an Ambulatory Assistive Device (Walker, Cane, Wheelchair, Crutches, etc.)? Yes, Patient High Riskfor Falls What interventions were put in place to prevent falls during this visit? Yellow "Falls Risk Wristband" Applied PATIENT GENDER DATA: Female. status: : No status: NO. PATIENT RELEVANT IMPLANT DATA REVIEWED: Not Applicable PATIENT PRESENTS WITH AN IMPLANTABLE OR ATTACHED GLASS CUT OFF SUPERVISOR: No RADIOLOGY DEPARTMENT: Ultrasound PERIPHERAL IV DATA: Not applicable SIGNED BY: Virginie Rios RDMS September 23, 2023 10:39 AM documented in this encounterBl[facility]06-12-[facility]24 NoteHNO ID: [id number] Author: TIAGO MCNAMARA CT Service: Radiology Author Type: Technologist Type: Progress Notes Filed: 09/23/2023 09:43 Note Text: Radiology Service Progress Note PATIENT NAME: Monisha Cohn DATE OF SERVICE: September 23, 2023 TIME: 9:42 AM PATIENT IDENTITY VERIFICATION COMPLETED USING TWO (2) IDENTIFIERS: Name and Date of confirmed by patient verbally. FALL SCREENING: Has the patient had 2 falls in the last year or 1 fall with injury or currently using an Ambulatory Assistive Device (Walker, Cane, Wheelchair, Crutches, etc.)? Yes, Patient High Risk for Falls What interventions were put in place to prevent falls during this visit? Yellow "Falls Risk Wristband" Applied, Instructed Patient to Call for Help if Needed, Offered Assistance with Transfers/Clothing, Instructed Patient to Remain Seated (Not on Exam Table) Until Exam, and wheelchair. PATIENT GENDER DATA: Female. status: : No status: NO. PATIENT RELEVANT IMPLANT DATA REVIEWED: Not Applicable PATIENT PRESENTS WITH AN IMPLANTABLE OR ATTACHED GLASS CUT OFF SUPERVISOR: No RADIOLOGY DEPARTMENT: Mammography PERIPHERAL IV DATA: Not applicable SIGNED BY: RT Yumiko September 23, 2023 9:42 AMJ.[facility]. [facility] [id number] NoteHNO ID: [id number] Author: VIRGINIE RIOS RDMS Service: Radiology Author Type: Gas Or Water Meter Installer Type: Progress Notes Filed: 09/23/2023 10:39 Note Text: Radiology Service Progress Note PATIENT NAME: Monisha Cohn DATE OF SERVICE: September 23, 2023 TIME: 10:39 AM PATIENT IDENTITY VERIFICATION COMPLETED USING TWO (2) IDENTIFIERS: Name and Date of confirmed by patient verbally and Name and Date of confirmed by identification band. FALL SCREENING: Has the patient had 2 falls in the last year or 1 fall with injury or currently using an Ambulatory Assistive Device (Walker, Cane, Wheelchair, Crutches, etc.)? Yes, Patient High Risk for Falls What interventions were put in place to prevent falls during this visit? Yellow "Falls Risk Wristband" Applied PATIENT GENDER DATA: Female. status: : No status: NO. PATIENT RELEVANT IMPLANT DATA REVIEWED: Not Applicable PATIENT PRESENTS WITH AN IMPLANTABLE OR ATTACHED GLASS CUT OFF SUPERVISOR: No RADIOLOGY DEPARTMENT: Ultrasound PERIPHERAL IV DATA: Not applicable SIGNED BY: Virginie Rios RDMS September 23, 2023 10:39 [facility] [id number] Telephone encounter Note* Telephone Encounter - Mary Ann Villalobos - 09/02/2023 1:18 PM EDT Received call from Rissa at [facility]. Patient would like to complete Physical Therapy on-site at the facility. Order for PT faxed to their facility via [facility]. Mary Ann Villalobos [facility]05-22-2024 Miscellaneous Notes* Telephone Encounter - Mary Ann Villalobos - 09/02/2023 1:18 PM EDT Received call from Rissa at [facility]. Patient would like to complete Physical Therapy on-site at the facility. Order for PT faxed to their facility via [facility]. Mary Ann Villalobos documented in this encounterBl[facility]ard [facility]05-16-[facility] History of Present illness Narrative* Marie Ramirez PA-C - 08/27/2023 1:40 PM EDT Images from the original note were not included. Marie Ramirez PA-C [facility] [address] [place] [address] 08/27/2023 ASSESSMENT AND PLAN: Assessment : Encounter Diagnosis ICD-10-CM 1. Acute pain of left shoulder M25.512 CONSULT TO PHYSICAL THERAPY 2. Protrusion of cervical intervertebral disc M50.20 CONSULT TO PHYSICAL THERAPY 3. Pain in left elbow M25.522 CONSULT TO PHYSICAL THERAPY Discussion: Ms. Cohn is a pleasant 83-year-old female current resident of a rehab facility who recently had hip replacement and is finishing rehab on that but developed problems in her LEFT side of her neck, trapezius, left shoulder, left elbow and occasionally into her left hand. Symptoms are not present in the hand today, but she thinks that it involves her fourth digit. She has symptoms in the anterior left elbow region and superior left shoulder region. She denies posterior neck pain or change of her pain with neck motion. She had recent cervical MRI study completed on July 29, 2023. EXAM Highlights: She remained seated in a wheelchair during today's exam and is somewhat unsteady on her feet. She is slow to get up from sitting to standing posture. She has mild pain on palpation over LEFT side of her neck and trapezius, superior left shoulder, left antecubital region. She has age-appropriate diminishment of motion in the cervical region. She has difficulties with any motion of her LEFT arm above shoulder level and with fully extending her LEFT elbow, and with pronation and supination of the LEFT arm. Overall, her skin coloration is bluish especially in the face and head area. This is expected to have been from taking silver supplementation in the remote past for management of fibromyalgia. Neck range of motion is mildly limited without significant pain reproduction other than muscular LEFT-sided neck pain IMAGIN07/29/2023 cervical MRI study showed multilevel disc degeneration with small disc bulges atmultiple levels and foraminal narrowing worse on the right at C6-7, worse on the left at C5-6. There is appreciable central narrowing at C3-4. SUMMARY/PLAN: We a long discussion during today's visit about considering whether or not to do moreconservative therapy with PT versus try cervical injections. Unfortunately with cervical injections, it would be difficult to know where to specifically aim with multiple areas of the cervical spine p otentially involved in possible symptom production. She does seem to have some articular issues in the elbow and shoulder area and I would value further input from orthopedics regarding those issues separately especially since it involves motion deficits and localized pain with motion there. I think she would be willing to consider a cervical injection for some of her symptoms, but it is uncertain if injection would give her much relief and it involves a little higher level of risk to consider that. I would like her to go forward with therapy and orthopedic evaluation Plan : REFERAL FOR SERVICES: -Physical therapy will be instituted. FOLLOW-UP: -The patient is instructed to return as needed. This document has been created with the use of voice recognition technology. It may contain inaccuracies: (e.g. misspellings, inaccurate syntax or word sense) that have escaped review. Time spent: 50 minutes today with this patient visit. This includes hitw-jr-[id number] time, review of chart records regarding conservative care history, spine- pertinent imaging, and communication/care coordination with referring provider, problem-specific history-taking and counseling/education regarding treatment options. cc: Em Flynn [address] [address] Results of consultation to be transmitted via electronic medical record for those providers who practice within [facility] or with access to [facility] via [facility], or via letter. ######################################################################## CHIEF COMPLAINT: Neck Pain and Left arm Pain HPI: See "Discussiuon" above History of bowel or bladder dysfunction (not IBS or constipation): No History of previous spinal surgery: No History of spinal fracture: No Work Status: retired NON-OPERATIVE CARE: Medication(s): She has tried the following for relief of her symptoms: OTC Tylenol Ultram/tramadol Physical Therapy: She has had physical therapy for her current symptoms. This was completed Loki months ago. The therapy did not provide any significant relief. Spinal Injections: She has not gotten prior spinal injections. none Other: None Current Outpatient Medications Medication Sig Dispense Refill DULoxetine (CYMBALTA) 20 mg capsule 2 capsules once daily. ascorbic acid, vitamin C, (VITAMIN C) 500 mg tablet Take 1 tablet by mouth two times a day. ferrous sulfate 325 mg (65 mg iron) tablet Take by mouth. polyethylene glycol 3350 17 gram/dose powder Take by mouth. senna-docusate (SENNA-S) 8.6-50 mg per tablet Take by mouth. acetaminophen 325 mg cap Take by mouth. metoprolol tartrate, short acting, (LOPRESSOR) 25 mg tablet 0.5 tablets two times a day. MYRBETRIQ 25 mg Tb24 1 tablet once daily. traMADol (ULTRAM) 50 mg tablet psyllium (KONSYL) packet Take by mouth. cyanocobalamin (VITAMIN B-12) 500 mcg tablet Take 1 tablet by mouth once daily. atorvastatin (LIPITOR) 40 mg tablet Take 1 tablet by mouth every afternoon. losartan (COZAAR) 25 mg tablet Take 1 tablet by mouth every afternoon. carbidopa-levodopa (SINEMET) 25-100 mg per tablet Take 2 tablet daily at 8AM, 2 tablet daily at 12PM, 2 tablet daily at 4PM, and 1.5 tablet daily at 8PM. 225 tablet 11 aspirin, enteric coated (ASPIRIN, ENTERIC COATED) 81 [...] Take 4 mg by mouth once daily. No current facility-administered medications for this visit. Allergies: Percocet [Oxycodone-Acetaminophen] PAST MEDICAL HISTORY Diagnosis Date [place] of skin 10/09/2022 Arteriosclerosis of coronary artery 07/31/2022 Essential (primary) hypertension 07/31/2022 Fibromyalgia 10/09/2022 Gout 03/31/2022 Myocardial infarction (HCC) 10/09/2022 Nonrheumatic tricuspid valve regurgitation 07/31/2022 Parkinson's disease 07/31/2022 No past surgical history on file. Social History Tobacco Use Smoking status: Former Types: Cigarettes Smokeless tobacco: Never Substance Use Topics Alcohol use: Never Drug use: Never No family history on file. REVIEW OF SYSTEMS: Constitutional: (-) Fever/Chills (-) Night Sweats (+) Weight Gain (-) Weight Loss Gastrointestinal: (-) Abdominal Pain (-) Diarrhea (-) Constipation (-) Heart Burn Cardiovascular: (-) Chest Pain (-) Palpitations (+) Lightheadedness (+) Hx Heart Surgery/Stent Respiratory: (+) Short of Breath (-) Cough (-) Snoring Neurologic: (+) Headache (+) Blurry Vision (-) Fainting Skin: (-) Rashes (-) Itching (-) Other Lesions Psychiatric: (-) Depression (+) Anxiety (-) Suicidal Thoughts Genitourinary: (+) Frequency (+) Urgency Endocrine: (-) Thyroid Disorder (-) Diabetes Hematologic: (-) Prolonged Bleeding (+) Easy Bruising ################################################################################ ################################################# PHYSICAL EXAM: Blood pressure 130/57, pulse 60, resp. rate 18, height 157.5 cm (5' 2"), weight 74.7 kg (164 lb 10.9 oz), SpO2 100%. Body mass index is 30.12 kg/m . General: Patient is a(n) poor historian. The patient appears approximately the recorded age and is sitting comfortably in the examining room. The patient is average height in stature and is overweight in appearance. This individual has difficulty arising from a sitting position and does have difficulty acquiring a full, upright position when standing. MENTAL STATUS EXAMINATION: The patient was well groomed and casually attired. The patient had good eye contact and rapport wasaverage to establish. The patient appeared to be alert and oriented in all spheres. The patient's overall medical judgment appeared to be fair.The patient's motivation for treatment was judged based on today's encounter to be good. SPINE: Cervical Lordosis: Decreased/flattened Thoracic Kyphosis: Increased Skin: Normal-no rashes, bruises, lesions, or signs of localized trauma., Skin color, texture and turgor normal. Paraspinal atrophy: No Range of Motion: Flexion: 2 fingerbreadths from chin to chest Pain: Yes Extension: limited with pain Rotation: Right: limited with pain Left: limited with pain PALPATION TENDERNESS: Moderate tenderness at: cervical spine and shoulders/trapezius Hyperesthesia present: No Regional symptoms present: No Increased pain with axial loading: No Distraction: Normal Pain responses: elevated NEUROLOGIC EXAM: Requires verbal cues to minimize cog-wheel or give-way resistance: No MOTOR: Deltoid R: 5/5 L: -4/5 Biceps R: 5/5 L: 4/5 Wrist Extension R: 5/5 L: 5/5 Wrist Flexion R: 5/5 L: 5/5 Triceps R: 5/5 L: 4/5 Water/Wastewater Project Engineer R: 5/5 L: 5/5 Interossei R: +4/5 L: +4/5 SENSATION to Light Touch: Cervical: C2-T2 symmetrically normal. Thoracic: T1-L1 symmetrically normal. Spurling's: Reproduces axial pain only. REFLEXES: Upper Extremity: All Upper Extremity reflexes symmetrically normal. Lower Extremity: All Lower Extremity reflexes symmetrically normal. Rojas's: Negative bilaterally. Clonus: R: 0 beats/Normal L: 0 beats/Normal Babinski Sign Present: Negative bilaterally. IMAGING STUDIES: See discussion above documented in this encounterBl[facility] NoteHNO ID: [id number] Author: MARIE RAMIREZ PA-C Service: ? Author Type: Physician Gas Appliance Servicer Type: Progress Notes Filed: 08/27/2023 14:46 Note Text: Marie aRmirez PA-C [facility] [address] [place] [address] 08/27/2023 ASSESSMENT AND PLAN: Assessment : Encounter Diagnosis ICD-10-CM 1. Acute pain of left shoulder M25.512 CONSULT TO PHYSICAL THERAPY 2. Protrusion of cervical intervertebral disc M50.20 CONSULT TO PHYSICAL THERAPY 3. Pain in left elbow M25.522 CONSULT TO PHYSICAL THERAPY Discussion: Ms. Cohn is a pleasant 83-year-old female current resident of a rehab facility who recently had hip replacement and is finishing rehab on that but developed problems in her LEFT side of her neck, trapezius, left shoulder, left elbow and occasionally into her left hand. Symptoms are not present in the hand today, but she thinks that it involves her fourth digit. She has symptoms in the anterior left elbow region and superior left shoulder region. She denies posterior neck pain or change of her pain with neck motion. She had recent cervical MRI study completed on July 29, 2023. EXAM Highlights: She remained seated in a wheelchair during today's exam and is somewhat unsteady on her feet. She is slow to get up from sitting to standing posture. She has mild pain on palpation over LEFT side of her neck and trapezius, superior left shoulder, left antecubital region. She has age-appropriate diminishment of motion in the cervical region. She has difficulties with any motion of her LEFT arm above shoulder level and with fully extending her LEFT elbow, and with pronation and supination of the LEFT arm. Overall, her skin coloration is bluish especially in the face and head area. This is expected to have been from taking silver supplementation in the remote past for management of fibromyalgia. Neck range of motion is mildly limited without significant pain reproduction other than muscular LEFT-sided neck pain IMAGIN07/29/2023 cervical MRI study showed multilevel disc degeneration with small disc bulges at multiple levels and foraminal narrowing worse on the right at C6-7, worse on the left at C5-6. There is appreciable central narrowing at C3-4. SUMMARY/PLAN: We a long discussion during today's visit about considering whether or not to do more conservative therapy with PT versus try cervical injections. Unfortunately with cervical injections, it would be difficult to know where to specifically aim with multiple areas of the cervical spine potentially involved in possible symptom production. She does seem to have some articular issues in the elbow and shoulder area and I would value further input from orthopedics regarding those issues separately especially since it involves motion deficits and localized pain with motion there. I think she would be willing to consider a cervical injection for some of her symptoms, but it is uncertain if injection would give her much relief and it involves a little higher level of risk to consider that. I would like her to go forward with therapy and orthopedic evaluation Plan : REFERAL FOR SERVICES: -Physical therapy will be instituted. FOLLOW-UP: -The patient is instructed to return as needed. This document has been created with the use of voice recognition technology. It may contain inaccuracies: (e.g. misspellings, inaccurate syntax or word sense) that have escaped review. Time spent: 50 minutes today with this patient visit. This includes [id number] time, review of chart records regarding conservative care history, spine-pertinent imaging, and communication/care coordination with referring provider, problem-specific history-taking and counseling/education regarding treatment options. cc: Em Flynn [address] [address] Results of consultation to be transmitted via electronic medical record for those providers who practice within [facility] or with access to [facility] via [facility], or via letter. ######################################################################## CHIEF COMPLAINT: Neck Pain and Left arm Pain HPI: See "Discussiuon" above History of bowel or bladder dysfunction (not IBS or constipation): No History of previous spinal surgery: No History of spinal fracture: No Work Status: retired NON-OPERATIVE CARE: Medication(s): She has tried the following for relief of her symptoms: OTC Tylenol Ultram/tramadol Physical Therapy: She has had physical therapy for her current symptoms. This was completed Loki months ago. The therapy did not provide any significant relief. Spinal Injections: She has not gotten prior spinal injections. none Other: None Current Outpatient Medications (more content not included)...[facility]05-03-2024 Note* Letter - Coordinator, Lizandro 08/14/2023 11:00 AM EDT August 14, 2023 PID: [id number] Monisha Brink [address] [place] [address] Dear Ms. Cohn, Your recent breast imaging exam on 08/13/2023 showed a possible finding that requires additional imaging studies for a complete evaluation. Most such findings are probably benign (not cancer). If you have a healthcare provider who ordered/prescribed your screening mammogram: Please call to schedule an appointment for your additional imaging (if you have not already done so).Additional [facility] self [facility] If you DO NOT have a healthcare provider (ie you did not have an order/prescription for your screening mammogram): Please call to schedule an appointment for your additional imaging (if you have not already done so). Additonal Imaging cannot be self scheduled [facility]. This exam cannot be self scheduled in [facility]. You must have an order/prescription from your physician when calling to schedule your appointment. If your order/prescription is not electronic, you must bring the hard copy with you on the day of your exam Your imaging studies and reports are kept on file at [facility] as part of your permanent medical record, and are available for your continuing care. Thank you for allowing us to help in meeting your health care needs. Sincerely, Dr. Castellanos Interpreting Radiologist [facility] (Additional imaging) [facility]05-03-2024 Miscellaneous Notes* Letter - Coordinator, Mammography - 08/14/2023 11:00 AM EDT August 14, 2023 PID: [id number] Monisha M. Suki [address] [place] [address] Dear Ms. Cohn, Your recent breast imaging exam on 08/13/2023 showed a possible finding that requires additional imaging studies for a complete evaluation. Most such findings are probably benign (not cancer). If you have a healthcare provider who ordered/prescribed your screening mammogram: Please call to schedule an appointment for your additional imaging (if you have not already done so).Additional Imaging cannot be self scheduled in [facility]. If you DO NOT have a healthcare provider (ie you did not have an order/prescription for your screening mammogram): Please call to schedule an appointment for your additional imaging (if you have not already done so). Additonal Imaging cannot be self scheduled in [facility]. This exam cannot be self scheduled in [facility]. You must have an order/prescription from your physician when calling to schedule your appointment. If your order/prescription is not electronic, you must bring the hard copy with you on the day of your exam Your imaging studies and reports are kept on file at [facility] as part of your permanent medical record, and are available for your continuing care. Thank you for allowing us to help in meeting your health care needs. Sincerely, Dr. Castellanos Interpreting Radiologist [facility] (Additional imaging) documented in this encounterBlanchard Valley Health System05-02-2024 History of Present illness Narrative* Tiago Mcnamara CT - 08/13/2023 2:00 PM EDT Radiology Service Progress Note PATIENT NAME: Monisha Cohn DATE OF SERVICE: August 13, 2023 TIME: 2:15 PM PATIENT IDENTITY VERIFICATION COMPLETED USING TWO (2) IDENTIFIERS: Name and Date of confirmedby patient verbally. FALL SCREENING: Has the patient had 2 falls in the last year or 1 fall with injury or currently using an Ambulatory Assistive Device (Walker, Cane, Wheelchair, Crutches, etc.)? No PATIENT GENDER DATA: Female. status: : No status: NO. PATIENT RELEVANT IMPLANT DATA REVIEWED: Not Applicable PATIENT PRESENTS WITH AN IMPLANTABLE OR ATTACHED GLASS CUT OFF SUPERVISOR: No RADIOLOGY DEPARTMENT: Bone Density and Mammography PERIPHERAL IV DATA: Not applicable SIGNED BY: ANCA López August 13, 2023 2:15 PM documented in this encounterBlanchard Valley Health System05-02-2024 NoteHNO ID: [id number] Author: TIAGO MCNAMARA CT Service: Radiology Author Type: Technologist Type: Progress Notes Filed: 08/13/2023 14:16 Note Text: Radiology Service Progress Note PATIENT NAME: Monisha Cohn DATE OF SERVICE: August 13, 2023 TIME: 2:15 PM PATIENT IDENTITY VERIFICATION COMPLETED USING TWO (2) IDENTIFIERS: Name and Date of confirmed by patient verbally. FALL SCREENING: Has the patient had 2 falls in the last year or 1 fall with injury or currently using an Ambulatory Assistive Device (Walker, Cane, Wheelchair, Crutches, etc.)? No PATIENT GENDER DATA: Female. status: : No status: NO. PATIENT RELEVANT IMPLANT DATA REVIEWED: Not Applicable PATIENT PRESENTS WITH AN IMPLANTABLE OR ATTACHED GLASS CUT OFF SUPERVISOR: No RADIOLOGY DEPARTMENT: Bone Density and Mammography PERIPHERAL IV DATA: Not applicable SIGNED BY: ANCA López August 13, 2023 2:15 PMJ.W. Ruby Memorial [id number] Telephone encounter Note* Telephone Encounter - Em Flynn APRN.CNP - 08/03/2023 6:17 PM EDT I called and reviewed her results with her and let her know that I did communicate with a spine medicine provider who also reviewed her cervical spine MRI. He recommended that she start with spine medicine so I will have our schedulers call to set this up. She said they need to arrange this with Rissa at the [facility] as this is the individual who would drive her to her appointments. STONE Lockhart [facility]04-22-2024 Miscellaneous Notes* Telephone Encounter - Em Flynn APRN.CNP - 08/03/2023 6:17 PM EDT I called and reviewed her results with her and let her know that I did communicate with a spine medicine provider who also reviewed her cervical spine MRI. He recommended that she start with spine medicine so I will have our schedulers call to set this up. She said they need to arrange this with Rissa at the [facility] as this is the individual who would drive her to her appointments. STONE Lockhart documented in this encounterBlanchard Valley Health System03-25-2024 Instructions* Patient Instructions* Em Flynn APRN.CNP - 07/06/2023 9:05 AM EDT It was a pleasure to see you today. My recommendations are as follows: 07/06/2023 Visit: Parkinson's disease: Reduce your 12pm dose to 1.5 tablets [...] your water intake and change positions slowly. I will have the nurses measure your blood pressure sitting and standing for one week at approximately the same time every day If it continues to drop (top number 20 points or more or bottom number 10points or more) please discuss with your licensing services clerk. Date/Time BP Sitting Heart Rate Sitting BP Standing Heart Rate Standing Hallucinations: I am hoping that the reduction in Sinemet helps these, but if it does not and they are bothering you, please let me know. Dysphagia (difficulty swallowing): I am ordering speech therapy for this and your quiet speech Vision changes: Please follow up with your feed mixer helper. Left arm pain/numbness and tingling: I have ordered a neck MRI. Movement Disorders Medication Schedule: Medications 8AM 12PM 4PM 8PM Sinemet 25/100 2 1.5 1.5 1.5 Return in about 3 months (around 10/06/2023). If there are any concerns before your next visit, please call or you can send a message through [facility]. You can also now schedule and select appointments through [facility]. Em Flynn APRN.RUPALI documented in this encounterBlanchard Valley Health System03-25-2024 History of Present illness Narrative* Em Flynn APRN.CNP - 07/06/2023 8:22 AM EDT [facility] - FOLLOW UP EVALUATION Alexandra Arreguin APRN.RUPALI [address] [facility] [address] [facility] [address] Dear Alexandra Arreguin APRN.CNP: I had the pleasure of seeing Ms. Cohn for follow-up today. As you know she is a 83 year old right-handed female with a history of Parkinson's disease since 2019. She is seen alone. Subjective Previous Plan-01/20/2023 Visit: Parkinson's disease: Please set a timer [...] points or more) please discuss with your licensing services clerk. Date/Time BP Sitting Heart Rate Sitting BP [...] are bothering you, please let me know. Interval History: She fell and broke her hip as she said she did not wait when she first stood up and just took off and lost her balance. She had to go live in a facility afterward and this has been frustrating as shecannot share a room with her (whom also moved to the facility). She has had one fall since moving there. She does not want to live there anymore. They still want to move back to [place]. She was discharged from physical therapy. She has new arm pain in her left arm for about a month. It is an aching feeling at rest and then sometimes more pain comes unexpectedly when she goes to reach for something and feels like a shocking sensation down her arm. If she thinks about it and moves her arm slowly, then she does not have the shocking pain but she does reach a point that pain will increase and then she has to lower her arm. This pain occurred before her fall at the facility and she cannot think of anything that triggered it. Her neck hurts if she turns it to the left but this is not new. She said she has numbness and tingling in her left arm. Tramadol and Ibuprofen help. She also had physical therapy for the pain and this did not help at all. Movement Disorders Medications Schedule - as of the start of the visit: Medications 8AM 12PM 4PM 8PM Sinemet 25/100 2 2 2 1.5 Parkinson's Motor Complications Medication benefit onset: 30 minutes Medication duration: unclear Wearing off: yes (Comment: Only if she gets her medication late.) Painful off-state dystonia: yes (Comment: feet and hands that started after her heart attack) Dyskinesia: no Prior Anti-Parkinson Therapies Carbidopa/Levodopa Questionnaires: In addition, the following areas that may be affected by abnormal involuntary movements were evaluated: Daily activities Difficulties with eating: Difficulties in dressing: Difficulties with hygiene activities: Difficulties with handwriting: Difficulties with doing hobbies and other activities: Difficulties turning in bed: Difficulties getting out of bed, car or chair: Tremors/Gait/Balance Shaking or tremors: Every once in a while Walking and balance problems: yes-uses a walker and someone is behind her with a wheelchiar Number of falls in the Last Month: As noted Gait freezing: Yes-happens at least once a day Autonomic/Pain Lightheadeness on standing: Depends on how fast she gets up Urinary problems: She sees a urologist and is on Myrbetriq. This helps. 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 Restless Legs Syndrome: No Leg swelling: Yes Impaired sense of smell: Yes Cognition: Cognitive impairment: no MoCA Cognitive assessment: Hallucinations and delusions: yes She sometimes sees her next to her when he is not. They are not scary but she worries about having them. These started before she moved to [place] and after shehad her heart attack while in the hospital. Apathy: no She has motivation and is trying really hard to get out of the facility. Impulse control disorder: No Palliative Concerns: Caregiver burden: Spiritual concerns: No Advanced directives on file: No I offered a SW consult but she wants to wait until she moves back to [place]. Palliative services: Therapy and Exercise: Last PT Date: June 2023 Last OT Date: Last ST Date: Exercises Regularly: Yes She walks in the halls. ALLERGIES Allergen Reactions Percocet [Oxycodone* Rash, Itching Current Outpatient Medications Medication Sig ascorbic acid, vitamin C, (VITAMIN C) 500 mg tablet Take 1 tablet by mouth two times a day. ferrous sulfate 325 mg (65 mg iron) tablet Take by mouth. polyethylene glycol 3350 17 gram/dose powder Take by mouth. senna-docusate (SENNA-S) 8.6-50 mg per tablet Take by mouth. acetaminophen 325 mg cap Take by mouth. psyllium (KONSYL) packet Take by mouth. DULoxetine (CYMBALTA) 20 mg capsule 2 capsules once daily. metoprolol tartrate, short acting, (LOPRESSOR) 25 mg tablet 0.5 tablets two times a day. MYRBETRIQ 25 mg Tb24 1 tablet once daily. traMADol (ULTRAM) 50 mg tablet cyanocobalamin (VITAMIN B-12) 500 mcg tablet Take 1 tablet by mouth once daily. atorvastatin (LIPITOR) 40 mg tablet Take 1 tablet by mouth every afternoon. losartan (COZAAR) 25 mg tablet Take 1 tablet by mouth every afternoon. carbidopa-levodopa (SINEMET) 25-100 mg per tablet Take 2 tablet daily at 8AM, 2 tablet daily at 12PM, 2 tablet daily at 4PM, and 1.5 tablet daily at 8PM. aspirin, enteric coated (ASPIRIN, ENTERIC COATED) 81 [...] Take 4 mg by mouth once daily. No current facility-administered medications for this visit. Objective Vital Signs: BP 128/82 Pulse 72 Wt 73.9 kg (163 lb) LMP (LMP Unknown) SpO2 99% BMI 29.81 kg/m Orthostatic Vitals: None for this encounter Weight: 73.9 kg (163 lb) No LMP recorded (lmp unknown). Patient has had a hysterectomy. Body mass index is 29.81 kg/m . Movement Disorders Scales Performed: MDS-UPDRS Motor subscale condition of exam Medication Off/On/Naiive ON Time of UPDRS 0845 Time of Last Medication 2000 Last Medication Taken Sinemet 25/100, 1.5 tab [...] the mouth, such as less spontaneous smiling, butlips not parted. Rigidity Neck 1-Slight. Rigidity only detected with activation maneuver. Rigidity Right Upper Extremity 1-Slight. Rigidity only [...] after the 1st tap. Hand Movements Right 2-Mild. a) 3 to 5 interruptions during the movements, b) mild slowing, c) the amplitude decrements midway in the task. Hand Movements Left 3-Moderate. a) more than 5 interruptions during the movement or at least one longer arrest (freeze) in ongoing movement, b) moderate slowing, c) the amplitude decrements starting after the 1st [id number] sequence. Arm Movements Right 1-Slight. a) the regular rhythm is broken with one or two interruptions or hesitations of the movement, b) slight slowing, c) the amplitude decrements near the end of the sequence. Arm Movements Left 3-Moderate. a) more than 5 interruptions during the movement or at least one longer arrest (freeze) in ongoing movement, b) moderate slowing, c) the amplitude decrements starting after the 1st supination-pronation sequence. Toe Taps Right 3-Moderate. a) more than 5 interruptions during the tapping movements or at least one longer arrest (freeze) in ongoing movement, b) moderate slowing, c) the amplitude decrements starting after the first tap. Toe Taps Left 4-Severe. Cannot or can only barely perform the task because of slowing, interruptions or decrements. Leg Agility Right 3-Moderate. a) more than 5 interruptions during the movement or at least one longer arrest (freeze) in ongoing movement, b) moderate slowing in speed, c) amplitude decrements after the first tap. Leg Agility Left 3-Moderate. a) more than 5 interruptions during the movement or at least one longer arrest (freeze) in ongoing movement, b) moderate slowing in speed, c) amplitude decrements after the first tap. Arise From Chair Gait (She does not have her walker here and needs it to walk and with assistance due to her recently broken hip and falls) Body Bradykinesia 3-Moderate. Moderate global slowness and [...] tremor. Rest Tremor Constancy 0-Normal. No tremor. She has a left upgoing toe. She is unable to pull toes up voluntarily on the left side except minimally. Biceps were strong bilaterally as is right leg. She was unable to adequately try when testing other upper extremity strength on the left as it caused too much pain to move her arm for those. Pertinent Studies 05/01/[address] Impression: No acute intracranial process. No evidence of acute cervical spinal fracture or spondylolisthesis. Degenerative changes. 02/01/[address] Findings: Normal soft tissue structures. There is hyperostosis frontalis internus. There is mild cerebral atrophy with widening of the extra-axial spaces and ventricular dilatation. There are areas of decreased attenuation within the white matter tracts of the supratentorial brain, consistent with microvascular disease changes.Normal basal ganglia and thalami. Normal brainstem. Normal cerebellum. There is no intracranial hemorrhage. There are no findings of an acute ischemic infarction. Normal visualized paranasal sinuses. 02/02/23 Vit D 34.0 Assessment and Plan: Assessment Mrs. Cohn is a right-handed 83 year old year old female with Parkinson's disease since 2019. Her main concern today is arm pain, numbness and tingling unrelated to her Parkinson's disease. It has been ongoing for approximately one month and the trigger is not clear. She does have left side weakness and an upgoing toe. Physical therapy has been done and has not helped the pain. Ibuprofen and tramadol provides some relief. I have ordered a cervical spine MRI and recommendations will be made based on this. In regards to her Parkinson's disease, I am going to lower her Sinemet to see if the hallucinationsimprove as this was not done after the last visit. Other concerns are being addressed as noted below. The following are the current problems noted and addressed during this visit: Parkinson's disease without dyskinesia or fluctuating manifestations (hcc) Spinal stenosis of cervical region (primary encounter diagnosis) Plan 07/06/2023 Visit: Parkinson's disease: Reduce your 12pm dose to 1.5 tablets [...] your water intake and change positions slowly. I will have the nurses measure your blood pressure sitting and standing for one week at approximately the same time every day If it continues to drop (top number 20 points or more or bottom number 10points or more) please discuss with your licensing services clerk. Date/Time BP Sitting Heart Rate Sitting BP Standing Heart Rate Standing Hallucinations: I am hoping that the reduction in Sinemet helps these, but if it does not and they are bothering you, please let me know. Dysphagia (difficulty swallowing): I am ordering speech therapy for this and your quiet speech Vision changes: Please follow up with your feed mixer helper. Left arm pain/numbness and tingling: I have ordered a neck MRI. Updated Movement Disorders Medication Schedule: Medications 8AM 12PM 4PM 8PM Sinemet 25/100 2 1.5 1.5 1.5 Level of service : 16885 (40-54 min). Time spent 45 min on the day of service, which included preparing to see the patient, [id number] patient care, completing clinical documentation, obtaining and/or reviewing separately obtained history, performing a medically appropriate examination, counseling and educating the patient/family/caregiver, and ordering medications, tests, or procedures. Em Flynn APRN.CEMENTER MACHINE documented in this encounterBlanchard Valley [facility] System01-19-2024 Discharge summary Author Law Gold [facility] May 01, 2023 4:21pm Note Date/Time May 01, 2023 1 :42pm [facility] Medical Records Department [address] [place] [address] Emergency Department Summary 05/01/23 MR#: [id number] Acct: [id number] Name: MONISHA COHN Rep #:[id number] : 1940 83 From: [place] PCP: JACQUI Ann Status:REG ER Location: ED HPI HPI - Fall History of Present Illness Chief Complaint: Fall Informant: patient Occured/Mechanism Occurred: Days (5) Mechanism/Context: Yes same level fall Pain/Injury Pain Location: head Quality of Pain: Aching Worsened by: Nothing Relieved by: Nothing Associated Symptoms Associated Symptoms: Negative for Parasthesias, Weakness, Inability to ambulate,Loss of consciousness or Amnesia Narrative Narrative: Patient presents with headache and diplopia that began after a fall 5 days ago. Patient states she lost her balance due to her Parkinson's disease and fell. Patient states she hit her head but denies any loss of consciousness with the fall. Patient states that since the fall she has been having some double vision. Patient also admits to some mild neck pain. Patient states she hit theback of her head near the base of her head. Patient denies any other injuries. Patient denies any lacerations. [facility] Medical History Atherosclerotic heart disease of [place] coronary artery without angina pectoris Bladder spasms CAD (coronary artery disease) Cardiogenic shock CHI (closed head injury) Depression Edema, lower extremity Emphysema with chronic bronchitis Essential (primary) hypertension Fall Fibromyalgia Former tobacco use Gout Hyperlipidemia Hypertension Myocardial infarction Non-rheumatic mitral regurgitation Non-rheumatic tricuspid valve insufficiency Parkinsons disease Presence of stent in coronary artery (~12/22/21) Pulmonary hypertension ST elevation myocardial infarction (STEMI) of inferior wall (~12/22/21) Urgency of urination Home Medications aspirin 81 mg tablet,delayed release (Adult Aspirin Regimen) 81 mg PO DAILY 02/25/22 [History Last Taken 05/01/23] cholecalciferol (vitamin D3) 25 mcg (1,000 unit) capsule 25 mcg PO WE 02/25/22 [History Last Taken 04/29/23] trazodone 50 mg tablet 50 mg PO QHS PRN sleep 02/25/22 [History Last Taken Unknown] clopidogrel 75 mg tablet (Plavix) 75 mg PO DAILY #90 tabs 04/25/22 [Rx Last Taken 05/01/23] fesoterodine 4 mg tablet,extended release 24 hr 4 mg PO QHS 07/31/22 [History Last Taken 05/01/23] carbidopa 25 mg-levodopa 100 mg tablet 1.5 tab PO QHS 12/29/22 [History Last Taken 04/30/23] carbidopa 25 mg-levodopa 100 mg tablet 2 tab PO TID 12/29/22 [History Last Taken 05/01/23] duloxetine 20 mg capsule,delayed release 40 mg PO DAILY 12/29/22 [History Last Taken 05/01/23] losartan 25 mg tablet 25 mg PO DAILY #90 tabs 12/29/22 [Rx Last Taken 05/01/23] acetaminophen 325 mg capsule 650 mg PO Q6H PRN fever or pain 05/01/23 [History Last Taken 04/29/23] ascorbic acid (vitamin C) 500 mg tablet (C-500) 500 mg PO BID 05/01/23 [History Last Taken 04/30/23] atorvastatin 40 mg tablet 40 mg PO QHS 05/01/23 [History Last Taken 04/30/23] escitalopram oxalate 5 mg tablet 5 mg PO DAILY 05/01/23 [History Last Taken 05/01/23] ferrous sulfate 325 mg (65 mg iron) tablet (Feosol) 325 mg PO BID 05/01/23 [History Last Taken 04/30/23] mecobalamin (vitamin B12) 1,000 mcg chewable tablet 500 mcg PO DAILY 05/01/23 [History Last Taken 04/30/23] metoprolol tartrate 25 mg tablet 12.5 mg PO Q12H 05/01/23 [History Last Taken 05/01/23] pantoprazole 20 mg tablet,delayed release 20 mg PO DAILY 05/01/23 [History Last Taken 05/01/23] polyethylene glycol 3350 17 gram/dose oral powder (ClearLax) 17 g PO DAILY 05/01/23 [History Last Taken 05/01/23] psyllium husk 3.4 gram/5.4 gram oral powder (Stacie-Mucil) 1 tbsp PO DAILY 05/01/23 [History Last Taken 04/30/23] senna-docusate sodium capsule 1 cap PO BID 05/01/23 [History Last Taken 05/01/23] tramadol 50 mg tablet 50 mg PO Q8H PRN pain 05/01/23 [History Last Taken 04/30/23] Allergy/AdvReac Type Severity Reaction Status Date / Time oxycodone [From Percocet] Allergy Severe Hives Verified 05/01/23 13:26 Family History (Updated 02/01/23 @ 16:[address] Jasmin Steele MD) Father Heart disease Surgical History History of ankle surgery History of hysterectomy Presence of coronary angioplasty implant and graft S/P appendectomy Social History household members: friend(s) Smoking Status: Former smoker pack-years: 30 Tobacco: How many years used: 30 how long ago did patient quit smoking: Quit 20+ years prior. alcohol intake: current alcohol intake frequency: holidays/special occasions only substance use type: does not use caffeine: Yes Type: coffee Number of servings: 2 ROS ROS ED Constitutional Constitutional ED: Denies chills or fever(s) Eyes Eyes: Reports change in vision and diplopia; Denies blurry vision ENT ENT ED: Denies rhinorrhea or sore throat Cardiovascular Cardiovascular: Denies chest pain or palpitations Respiratory/Chest Respiratory/Chest: Denies cough or dyspnea Gastrointestinal Gastrointestinal: Denies nausea or vomiting Genitourinary Genitourinary ED: Denies dysuria or hematuria Musculoskeletal Musculoskeletal: Reports neck pain; Denies back pain Integumentary Denies abscess or rash Neurologic Neurologic: Denies headache(s) or weakness Allergic/Immunologic Allergic/Immunologic ED: Denies mouth swelling or urticaria EXAM Physical Exam Const Vital Signs: 05/01/23 13:26 05/01/23 13:31 05/01/23 14:23 Temperature 98.4 F Temperature Source Oral Pulse Rate 69 70 Respiratory Rate 16 17 Respiratory Effort Normal Non-Labored Respiratory Depth Normal Respiratory Pattern Normal Blood Pressure 126/50 H 122/51 H Blood Pressure Mean 75 74 Pulse Ox 99 98 Oxygen Delivery Method Room Air Room Air Positive well nourished and well developed General Appearance ED: well developed and NAD HEENT Reports normocephalic HEENT Narrative: There is mild tenderness over the occipital scalp. There is no laceration noted. There is no bony crepitance or step-off noted. Eyes PERRL and EOMs intact bilaterally Neck full ROM Neck Narrative: There is mild tenderness over the upper cervical spine and paraspinal muscles. There is no bony crepitance or step-off noted. There is no deformity noted. Resp normal respiratory effort and clear to auscultation bilaterally Cardio regular rate and regular rhythm GI non-tender and non-distended Palpation: soft Neuro oriented x3, CN's II-XII intact bilaterally, moves all extremities, no focal motor deficits and no sensory deficits noted Radha Coma Scale: document GCS findings Spontaneous Obeys Commands Oriented 15 Sensorium / Orientation: alert Motor Exam: strength 5/5 throughout Psych mental status grossly normal and thought process normal Skin Skin Narrative: Patient has a silver hue to her skin, mainly over her face. MDM MDM MDM Narrative Medical decision making narrative: Differential diagnosis includes intracranial bleeding, stroke, skull fracture, cervical spine fracture, coagulopathy, anemia, and electrolyte abnormality. CT scan of the brain will be obtained to assess for intracranial bleeding and skullfracture. CT scan of the cervical spine will be obtained to assess for cervicalspine fracture. CBC will be obtained to assess for leukocytosis and anemia. Basic metabolic profile will be obtained to assess for electrolyte abnormality and renal function. PT was INR and PTT will be obtained to assess for coagulopathy. Lab Data Attestation: I reviewed the patient's lab results. Lab results narrative: CBC was reviewed. There is a mild anemia with a hemoglobin of 10.7 and hematocrit 34.3. This was improved from previous results. Basic metabolic profile was reviewed and was within normal limits. PT with INR and PTT were reviewed. Pro time was 16.1 and INR is 1.3. PTT was 23.0. Labs: Laboratory Results - last 24 hr 05/01/23 14:15 WBC 6.1 RBC 3.80 L Hgb 10.7 L Hct 34.3 L MCV 90.3 MCH 28.2 MCHC 31.2 L RDW Std Deviation 43.1 RDW Coeff of Aleena 13.2 Plt Count 311 MPV 8.4 Immature Gran % (Auto) 0.300 Neut % (Auto) 62.2 Lymph % (Auto) 19.9 Iroquois % (Auto) 11.6 H Eos % (Auto) 5.2 H Baso % (Auto) 0.8 Absolute Neuts (auto) 3.8 Absolute Lymphs (auto) 1.22 Nucleated RBC % 0 PT 16.1 H INR 1.3 APTT 23.0 L Sodium 139 Potassium 4.4 Chloride 106 Carbon Dioxide 28.0 Anion Gap 5 BUN 15 Creatinine 0.79 Estim Creat Clear Calc 51.35 Est GFR (MDRD) Af Amer 89 Est GFR (MDRD) Non-Af 74 BUN/Creatinine Ratio 18.9 Glucose 87 Calcium 8.9 Radiography Diagnostic Testing: Clinical Impression(s) from Imaging Studies Brain CT 05/01/23 13:42 IMPRESSION: No acute intracranial process. Electronically Signed: Zack Sweeney MD at 14:24 EST , Cervical Spine CT 05/01/23 13:43 IMPRESSION: 1. No evidence of acute cervical spinal fracture or spondylolisthesis. 2. Degenerative changes. Electronically Signed: Zack Sweeney MD at 14:28 EST , CT scan of the brain was obtained. There is no acute intracranial abnormality. This was interpreted by the radiologist and was also independently reviewed by myself. CT scan of the cervical spine was obtained. There is no acute fracture or spondylolisthesis noted. There are some degenerative changes noted. This was interpreted by the radiologist and was also independently reviewed by myself. Treatment and Re-Evaluation Narrative: Patient was advised of her findings. Patient was advised that this could be from a concussion. Patient was instructed to drink plenty of fluids. Patient was instructed to follow-up with her primary care physician in 5 to 7 days. Patient was instructed to return if worse in any way. Patient understood and was agreeable with the plan. All questions were answered. Discharge Plan Triage Chief Complaint: Fall Other Complaint: Head Injury ED Provider: Law Gold Dx/Rx/DC Orders Clinical Impression: Concussion, Parkinsons disease Instructions: ED Concussion Prescriptions: No Action fesoterodine 4 mg tablet extended release 24 hr 4 mg PO QHS carbidopa-levodopa 25-100 mg tablet 1.5 tab PO QHS carbidopa-levodopa 25-100 mg tablet 2 tab PO TID Patient Comments: 0800, 1200, 1600 duloxetine 20 mg capsule,delayed release(DR/EC) 40 mg PO DAILY losartan 25 mg tablet 25 mg PO DAILY Qty: 90 3RF aspirin [Adult Aspirin Regimen] 81 mg tablet,delayed release (DR/EC) 81 mg PO DAILY trazodone 50 mg tablet 50 mg PO QHS PRN (Reason: sleep) cholecalciferol (vitamin D3) 25 mcg (1,000 unit) capsule 25 mcg PO WE clopidogrel [Plavix] 75 mg tablet 75 mg PO DAILY Qty: 90 3RF tramadol 50 mg tablet 50 mg PO Q8H PRN (Reason: pain) metoprolol tartrate 25 mg tablet 12.5 mg PO Q12H senna-docusate sodium Capsule 1 cap PO BID ascorbic acid (vitamin C) [C-500] 500 mg tablet 500 mg PO BID atorvastatin 40 mg tablet 40 mg PO QHS polyethylene glycol 3350 [ClearLax] 17 gram/dose powder 17 g PO DAILY escitalopram oxalate 5 mg tablet 5 mg PO DAILY Stacie-Mucil 3.4 gram/5.4 gram powder 1 tbsp PO DAILY Rx Instructions: mix into at least 8 oz of water or juice before administering pantoprazole 20 mg tablet,delayed release (DR/EC) 20 mg PO DAILY mecobalamin (vitamin B12) 1,000 mcg tablet,chewable 500 mcg PO DAILY ferrous sulfate [Feosol] 325 mg (65 mg iron) tablet 325 mg PO BID acetaminophen 325 mg capsule 650 mg PO Q6H PRN (Reason: fever or pain) Primary Care Provider: Alexandra Arreguin NP Referrals: Alexandra Arreguin NP, [employer] [Primary Care Provider] - 5-7 Days Disposition Disposition: Home, Self Care What to do if you have Problems For any increased pain, shortness of breath, bleeding, nausea or vomiting, chestpain, or any unexpected problems, contact your Primary Care Provider. Call [facility] ([phone]) or report to the closest Emergency Room. Call 911 if necessary. 05/01/23 1621 <Electronically signed by Law Gold DO> Cosigner Signature (if applicable): CC: JACQUI Arreguin ~ Signed [facility] Work Phone: 1(456) 712-138310-27-2023 Discharge summary Author Darline Lundy [facility] February 06, 2023 2:09pm Note Date/Time February 06, 2023 1 2:33pm [facility] Medical Records Department [address] [place] [address] Transfer to [facility] MR#: [id number] Acct: [id number] Name: MONISHA COHN Rep #:[id number] : 1940 82 From: Darline Lundy MD PCP: JACQUI Ann Status:ADM IN Certification of patient admission REQUIRED AT TIME OF ADMISSION. I CERTIFY THAT POST-HOSPITAL ECF SERVICES ARE REQUIRED TO BE GIVEN ON AN IN-PATIENT BASIS BECAUSE OF THE ABOVE NAMED PATIENT'S NEED FOR LONG-TERM CARE ON A CONTINUING BASIS FOR THE CONDITION(S) FOR WHICH HE/SHE WAS RECEIVING IN-PATIENT HOSPITAL SERVICES PRIOR TO HIS/HER TRANSFER TO THE ECF. 02/06/23 1233<Electronically signed by Darline Lundy MD> Diet Diet Order/Speech Therapy: 02/03/23 09:42 Diet: Regular - General Is pt able to select menu?: Yes Routine Orders/Code Status Suppository Type: Dulcolax 10mg Suppository Frequency: Daily PRN Wound(s) l hip: Wound Type: Surgical Incision LEFT UPPER HIP: Wound Type: Surgical Incision Therapies Physical Therapy: Eval and Treat Occupational Therapy: Eval and Treat Problem/Diagnosis (1) Closed hip fracture: Status: Acute Code(s): S72.009A - Fracture of unspecified part of neck of unspecified femur, initial encounter for closed fracture Plan #Displaced left intertrochanteric prox femur fx #Postoperative anemia s/p transfusion, stabilized #Parkinson's disease #htn #Mood disorder NOS #Chronic normocytic anemia The patient is an 82 y/o F w/ PMHx: CAD s/p PCI, HTN, HLD, COPD, Parkinson's disease, Chronic urgency/bladder spasms following with Urology, Gout, Fibromyalgia, Hx usage "silver water" with chronically silver skin hue, Obesity who presents to the [facility] ED on 02/01/23 with history of mechanical fall with subsequent left hip pain and was found to have displaced left intertrochanteric proximal femur fracture on x-ray. Was taken to the OR on 02/02 for left femur CMN with Dr. Grier. Patient did have complication of postop anemia requiring transfusion and then hemoglobin stabilized and remained stable with resumption of aspirin and Plavix. Worked w/ PT and recommended SNF. D/c'd in stable condition to SNF. Discharge instructions as follows: -Dry sterile dressing changes as needed -Okay to remove dressings leave open to air 1 week postoperatively -Okay to shower on postoperative day #4 if no drainage. No tub soaks -Weightbearing as tolerated left lower extremity -Follow-up with Dr. Grier with orthopedics in the office in 2 weeks for stapleremoval and x-rays. -Please call your primary care provider's office upon discharge to schedule a hospital follow up within 1 week. -For any concerning signs or symptoms please call 911 or proceed to the nearest emergency department Allergies/Procedures Done in Hospital Allergies oxycodone [From Percocet] Allergy (Severe, Verified 12/29/22 13:45) Hives Procedures: - (left femur CMN) Type of Care/Length of Stay Estimated LOS: Convalescent Care Less Than 30 days Type of Care Needed: Skilled Rehab Potential: Fair Prognosis: Fair Additional Orders/Day of Discharge Day of Discharge: 02/06/23 Discharge Plan Admission Admit Date/Time: 02/01/23 15:26 Primary Reason for Your Visit: Fall and left hip/leg pain Attending Provider: Darline Lundy Primary Care Provider: Alexandra Arreguin NP Consulting Providers: Jasmin Steele; Davian Grier Instructions Patient Instructions: ED Fall Prevention Additional Instructions / Restrictions: DISCHARGE INSTRUCTIONS PLEASE READ *Please take this with you to your next doctors appointment* -Dry sterile dressing changes as needed -Okay to remove dressings leave open to air 1 week postoperatively -Okay to shower on postoperative day #4 if no drainage. No tub soaks -Weightbearing as tolerated left lower extremity -Follow-up with Dr. Grier with orthopedics in the office in 2 weeks for stapleremoval and x-rays. -Please call your primary care provider's office upon discharge to schedule a hospital follow up within 1 week. -For any concerning signs or symptoms please call 911 or proceed to the nearest emergency department Discharge Orders/Prescriptions Prescriptions: Continued fesoterodine 4 mg tablet extended release 24 hr 4 mg PO DAILY carvedilol 3.125 mg tablet 3.125 mg PO BID Qty: 60 12RF Rx Instructions: must administer with a meal/food carbidopa-levodopa 25-100 mg tablet 1.5 tab PO ONCE carbidopa-levodopa 25-100 mg tablet 2 tab PO TID duloxetine 20 mg capsule,delayed release(DR/EC) 20 mg PO BID Rx Instructions: Start the medication at once a day for 15 days then start taking 2 x a day escitalopram oxalate 10 mg tablet 10 mg PO DAILY losartan 25 mg tablet 25 mg PO DAILY Qty: 90 3RF aspirin [Adult Aspirin Regimen] 81 mg tablet,delayed release (DR/EC) 81 mg PO DAILY trazodone 50 mg tablet 50 mg PO QHS PRN (Reason: sleep) cholecalciferol (vitamin D3) 25 mcg (1,000 unit) capsule 25 mcg PO DAILY clopidogrel [Plavix] 75 mg tablet 75 mg PO DAILY Qty: 90 3RF atorvastatin 40 mg tablet 40 mg PO DAILY Qty: 90 3RF Referrals / Follow Up: Davian Grier DO [Med Staff - Active Staff] - 02/18/23 Alexandra Arreguin NP, [employer] [Primary Care Provider] - Disposition Disposition (needs filled in before D/C Order can be placed): Care Home Facility (1) Closed hip fracture Qualifiers: Encounter type: initial encounter Laterality: left Qualified Code(s): S72.002A - Fracture of unspecified part of neck of left femur, initial encounterfor closed fracture 02/06/23 1233 <Electronically signed by Darline Lundy MD> Cosigner Signature (if applicable): CC: JACQUI Arreguin; Dr. Jasmin Steele MD; Dr. Davian Grier DO ~ ADDENDUM by Dr. Darline Lundy MD on 02/06/23 at 1409 Addendum COREG STOPPED D/T BP STILL BEING ON LOW SIDE, PT ASYMPTOMATIC HOWEVER, NO OTHER CHANGES MADE 02/06/23 1409 <Electronically signed by Darline Lundy MD> cc: JACQUI Arreguin; Dr. Jsamin Steele MD; Dr. Davian Grier DO ~* Signed [facility] Work Phone: [phone]) 959-290110-27-2023 Discharge summary Author Darline Lundy [facility] February 06, 2023 2:09pm Note Date/Time February 06, 2023 1 2:35pm [facility] Medical Records Department [facility] [place] [address] Discharge Summary 02/06/23 1234 MR#: [id number] Acct: [id number] Name: MONISHA COHN Rep #:[id number] : 1940 82 From: Darline Lundy MD PCP: JACQUI Ann Status:ADM IN Location: [facility] [id number] Providers Date of Admission: 02/01/23 Date of Discharge: 02/06/23 Primary Care Physician: JACQUI Ann Consultations 02/01/23 16:00 Consult: Orthopedics Routine Consulting Provider: Davian Grier Reason for Consult: Fall, hip fracture EMERGENT Consult: No MD Notified: Yes Date Notified: 02/01/23 Time Notified: 15:29 Method of Notification: ED Physician Initiated Reason For Visit: FALL, L HIP FRACTURE Diagnosis Discharge Diagnosis (1) Closed hip fracture: Status: Acute Code(s): S72.009A - Fracture of unspecified part of neck of unspecified femur, initial encounter for closed fracture Qualifiers: Encounter type: initial encounter Laterality: left Qualified Code(s): S72.002A - Fracture of unspecified part of neck of left femur, initial encounterfor closed fracture Plan #Displaced left intertrochanteric prox femur fx #Postoperative anemia s/p transfusion, stabilized #Parkinson's disease #htn #Mood disorder NOS #Chronic normocytic anemia The patient is an 82 y/o F w/ PMHx: CAD s/p PCI, HTN, HLD, COPD, Parkinson's disease, Chronic urgency/bladder spasms following with Urology, Gout, Fibromyalgia, Hx usage "silver water" with chronically silver skin hue, Obesity who presents to the [facility] ED on 02/01/23 with history of mechanical fall with subsequent left hip pain and was found to have displaced left intertrochanteric proximal femur fracture on x-ray. Was taken to the OR on 02/02 for left femur CMN with Dr. Grier. Patient did have complication of postop anemia requiring transfusion and then hemoglobin stabilized and remained stable with resumption of aspirin and Plavix. Worked w/ PT and recommended SNF. D/c'd in stable condition to SNF. Discharge instructions as follows: -Dry sterile dressing changes as needed -Okay to remove dressings leave open to air 1 week postoperatively -Okay to shower on postoperative day #4 if no drainage. No tub soaks -Weightbearing as tolerated left lower extremity -Follow-up with Dr. Grier with orthopedics in the office in 2 weeks for stapleremoval and x-rays. -Please call your primary care provider's office upon discharge to schedule a hospital follow up within 1 week. -For any concerning signs or symptoms please call 911 or proceed to the nearest emergency department Medications at Discharge Home Medications aspirin 81 mg tablet,delayed release (Adult Aspirin Regimen) 81 mg PO DAILY 02/25/22 cholecalciferol (vitamin D3) 25 mcg (1,000 unit) capsule 25 mcg PO DAILY 02/25/22 trazodone 50 mg tablet 50 mg PO QHS PRN sleep 02/25/22 clopidogrel 75 mg tablet (Plavix) 75 mg PO DAILY #90 tabs 04/25/22 carvedilol 3.125 mg tablet 3.125 mg PO BID #60 tabs 07/31/22 fesoterodine 4 mg tablet,extended release 24 hr 4 mg PO DAILY 07/31/22 atorvastatin 40 mg tablet 40 mg PO DAILY #90 tabs 08/05/22 carbidopa 25 mg-levodopa 100 mg tablet 1.5 tab PO ONCE 12/29/22 carbidopa 25 mg-levodopa 100 mg tablet 2 tab PO TID 12/29/22 duloxetine 20 mg capsule,delayed release 20 mg PO BID 12/29/22 escitalopram oxalate 10 mg tablet 10 mg PO DAILY 12/29/22 losartan 25 mg tablet 25 mg PO DAILY #90 tabs 12/29/22 Hospital Course Operations - (Left hip CMN) Summary of Care Provided Minutes Spent on Discharge: 32 Hospital Course: The patient is an 82 y/o F w/ PMHx: CAD s/p PCI, HTN, HLD, COPD, Parkinson's disease, Chronic urgency/bladder spasms following with Urology, Gout, Fibromyalgia, Hx usage "silver water" with chronically silver skin hue, Obesity who presents to the [facility] ED on 02/01/23 with history of mechanical fall with subsequent left hip pain and was found to have displaced left intertrochanteric proximal femur fracture on x-ray. Was taken to the OR on 02/02 for left femur CMN with Dr. Grier. Patient did have complication of postop anemia requiring transfusion and then hemoglobin stabilized and remained stable with resumption of aspirin and Plavix. Worked w/ PT and recommended SNF. D/c'd in stable condition to SNF. Discharge instructions as follows: -Dry sterile dressing changes as needed -Okay to remove dressings leave open to air 1 week postoperatively -Okay to shower on postoperative day #4 if no drainage. No tub soaks -Weightbearing as tolerated left lower extremity -Follow-up with Dr. Grier with orthopedics in the office in 2 weeks for stapleremoval and x-rays. -Please call your primary care provider's office upon discharge to schedule a hospital follow up within 1 week. -For any concerning signs or symptoms please call 911 or proceed to the nearest emergency department Physical Exam Narrative General: Alert, oriented, no apparent distress HEENT: Atraumatic, normocephalic Eyes: Anicteric, normal conjunctiva, extraocular movements grossly intact Neck: Supple Respiratory: Clear to auscultation bilaterally, normal respiratory effort Cardiovascular: Regular rate and rhythm GI: Soft, nontender, nondistended Extremities: SCDs in place Musculoskeletal: Moving all extremities Neuro: No overt focal neurological deficits Skin: Chronic grayish coloring of skin Psych: Cooperative Weight / BMI Weight Weight: 76.6 kg Body Mass Index (BMI) 31.1 ABG / Lab / Microbiology Data 02/06/23 08:47 02/06/23 05:45 Laboratory: Laboratory Results - last 24 hr 02/06/23 05:45: WBC 7.0, RBC 2.47 L, Hgb 7.1 L, Hct 22.4 L, MCV 90.7, MCH 28.7, MCHC 31.7 L D, RDW Std Deviation 45.7 H, RDW Coeff of Aleena 14.2, Plt Count 227, MPV 8.9, Immature Gran % (Auto) 0.700, Neut % (Auto) 55.6, Lymph % (Auto) 30.5, Iroquois % (Auto) 10.2 H, Eos % (Auto) 2.6, Baso % (Auto) 0.4, Absolute Neuts (auto)3.9, Absolute Lymphs (auto) 2.15, Nucleated RBC % 0, Sodium 140, Potassium 4.2, Chloride 108 H, Carbon Dioxide 29.0, Anion Gap 3 L, BUN 16, Creatinine 0.64, Estim Creat Clear Calc 34.90, Est GFR (MDRD) Af Amer 115, Est GFR (MDRD) Non-Af 95, BUN/Creatinine Ratio 25.2 H, Glucose 90, Calcium 7.9 L 02/06/23 08:47: Hgb 7.8 L D/C Instructions Discharge Diet: No restrictions Meaningful Use Info Meaningful Use Diagnoses (Choose all that apply): None applicable Discharge Plan Admission Admit Date/Time: 02/01/23 15:26 Primary Reason for Your Visit: Fall and left hip/leg pain Attending Provider: Darline Lundy Primary Care Provider: Alexandra Arreguin NP Consulting Providers: Jasmin Steele; Davian Grier Instructions Patient Instructions: ED Fall Prevention Additional Instructions / Restrictions: DISCHARGE INSTRUCTIONS PLEASE READ *Please take this with you to your next doctors appointment* -Dry sterile dressing changes as needed -Okay to remove dressings leave open to air 1 week postoperatively -Okay to shower on postoperative day #4 if no drainage. No tub soaks -Weightbearing as tolerated left lower extremity -Follow-up with Dr. Grier with orthopedics in the office in 2 weeks for stapleremoval and x-rays. -Please call your primary care provider's office upon discharge to schedule a hospital follow up within 1 week. -For any concerning signs or symptoms please call 911 or proceed to the nearest emergency department Discharge Orders/Prescriptions Prescriptions: Continued fesoterodine 4 mg tablet extended release 24 hr 4 mg PO DAILY carvedilol 3.125 mg tablet 3.125 mg PO BID Qty: 60 12RF Rx Instructions: must administer with a meal/food carbidopa-levodopa 25-100 mg tablet 1.5 tab PO ONCE carbidopa-levodopa 25-100 mg tablet 2 tab PO TID duloxetine 20 mg capsule,delayed release(DR/EC) 20 mg PO BID Rx Instructions: Start the medication at once a day for 15 days then start taking 2 x a day escitalopram oxalate 10 mg tablet 10 mg PO DAILY losartan 25 mg tablet 25 mg PO DAILY Qty: 90 3RF aspirin [Adult Aspirin Regimen] 81 mg tablet,delayed release (DR/EC) 81 mg PO DAILY trazodone 50 mg tablet 50 mg PO QHS PRN (Reason: sleep) cholecalciferol (vitamin D3) 25 mcg (1,000 unit) capsule 25 mcg PO DAILY clopidogrel [Plavix] 75 mg tablet 75 mg PO DAILY Qty: 90 3RF atorvastatin 40 mg tablet 40 mg PO DAILY Qty: 90 3RF Referrals / Follow Up: Davian Grier, [Med Staff - Active Staff] - 02/18/23 Alexandra Arreguin NP, [employer] [Primary Care Provider] - Disposition Disposition (needs filled in before D/C Order can be placed): Care Home Facility Charges/Coding Visit Charges Inpatient E&M: 70566 Disch Hosp >30min 02/06/23 1235 <Electronically signed by Darline Lundy MD> Cosigner Signature (if applicable): CC: [employer]-Mariajose Arreguin; Dr. Darline Lundy MD~ Signed ADDENDUM by Dr. Darline Lundy MD on 02/06/23 at 1409 Addendum COREG STOPPED D/T BP STILL BEING ON LOW SIDE, PT ASYMPTOMATIC HOWEVER, NO OTHER CHANGES MADE 02/06/23 1409<Electronically signed by Darline Lundy MD> Cosigner Signature (if applicable): cc: [employer]-Mariajose Arreguin; Dr. Darline Lundy MD ~* Signed [facility] Work Phone: [phone]) 572-248810-26-2023 Progress note Author Darline Lundy [facility] February 05, 2023 5:07pm Note Date/Time February 05, 2023 4 :55pm [facility] Medical Records Department [address] [place] [id number] Progress Note - Hospitalist 02/05/23 1651 MR#: [id number] Acct: [id number] Name: MONISHA COHN Rep #:[id number] : 1940 82 From: Darline Lundy MD PCP: JACQUI Ann Status:ADM IN Location: [place] [address] Reason for Visit Reason for Visit: Diagnoses Fracture of unspecified part of neck of left femur, initial encounter for closedfracture (02/01/23) Fracture of unspecified part of neck of unspecified femur, initial encounter forclosed fracture (02/01/23) Subjective Subjective Patient feeling better today, reports right leg also feels better and left elbowis less painful Objective Data Objective Data Vital Signs: Vital Signs Temp Pulse Resp BP Pulse Ox O2 Del Method 98.1 F 88 18 105/50 L 100 Room Air 02/05/23 12:03 02/05/23 12:03 02/05/23 12:03 02/05/23 12:03 02/05/23 12:03 02/05/23 12:03 Oxygen Delivery Method Room Air Weight: 73.5 kg Body Mass Index (BMI) 29.8 Intake & Output: Intake and Output for Last 24 Hours 02/03/23 02/04/23 02/05/23 23:59 23:59 23:59 Intake Total 2600 / 2600 960 / 960 Output Total 1025 / 1025 1900 / 1900 1500 / 1500 Balance 1575 / 1575 -940 / -940 -1500 / -1500 Lab / Micro Data 02/05/23 05:40 02/05/23 05:40 Labs: Laboratory Results - last 24 hr 02/03/23 07:45: Hgb 5.6 L* 02/05/23 05:40: WBC 8.7, RBC 2.70 L, Hgb 8.0 L, Hct 23.9 L, MCV 88.5, MCH 29.6, MCHC 33.5, RDW Std Deviation 43.2, RDW Coeff of Aleena 13.8, Plt Count 205, MPV 8.8, Immature Gran % (Auto) 0.500, Neut % (Auto) 67.7, Lymph % (Auto) 18.8 L, Iroquois % (Auto) 11.3 H, Eos % (Auto) 1.4, Baso % (Auto) 0.3, Absolute Neuts (auto)5.9, Absolute Lymphs (auto) 1.63, Nucleated RBC % 0, Sodium 138, Potassium 3.6, Chloride 106, Carbon Dioxide 27.0, Anion Gap 5, BUN 16, Creatinine 0.70, Estim Creat Clear Calc 34.90, Est GFR (MDRD) Af Amer 104, Est GFR (MDRD) Non-Af 86, BUN/Creatinine Ratio 23.0 H, Glucose 103, Calcium 8.0 L Physical Exam Narrative General: Alert, oriented, no apparent distress HEENT: Atraumatic, normocephalic Eyes: Anicteric, normal conjunctiva, extraocular movements grossly intact Neck: Supple Respiratory: Clear to auscultation bilaterally, normal respiratory effort Cardiovascular: Regular rate and rhythm GI: Soft, nontender, nondistended Extremities: SCDs in place Musculoskeletal: Moving all extremities Neuro: No overt focal neurological deficits Skin: Chronic grayish coloring of skin Psych: Cooperative Assessment & Plan Assessment/Plan (1) Closed hip fracture: QUALIFIERS: Encounter type: initial encounter Laterality: left Qualified Code(s): S72.002A - Fracture of unspecified part of neck of left femur, initial encounter for closed fracture PLAN: Plan #Displaced left intertrochanteric prox femur fx -Seen on x-ray imaging on presentation -Sustained after a mechanical fall from standing height -Ortho evaluated and recommended left femur cephalomedullary nailing -Holding Plavix to postop -OR this AM -PT/OT will be needed postop -02/03: Patient postop from left femur CMN with Dr. Grier. PT/OT, weightbearing as tolerated left lower extremities. -02/04: Pain control, PT/OT, may need placement versus home health pending PT eval -02/05: Plan for SNF for patient, awaiting pre-CERT #Postoperative anemia -Patient did receive some fluids and is postop with estimated blood loss of 200 cc per op report some combination may have led to low hemoglobin however still significant drop, we will plan to transfuse and recheck this afternoon, no otherevidence of blood loss. Plavix remains on hold and aspirin held this a.m. but will need to resume for stenting and DVT prophylaxis in addition SCDs and BELEN arevaloe -02/04: Hemoglobin stable status posttransfusion, resume aspirin and Plavix -02/05: Remains stable, awaiting placement #CAD with history of previous inferior wall STEMI -Status post PCI, on aspirin, holding Plavix until postop per recommendation -On Coreg and losartan -Seen by cardiology 12/29/2022 with no new acute concerns at that time -02/03: We will need to resume aspirin and Plavix as soon as is reasonable and hemoglobin improves with no evidence of ongoing blood loss -02/04: Hemoglobin stable, aspirin and Plavix resumed #Parkinson's disease -Complicates presentation, maintain on fall precaution, we will continue patienthome Sinemet regimen, encourage early follow-up with neurology, PT/OT/case management consultation for discharge planning. -02/03: PT/OT, Sinemet #htn -Home meds continued, normotensive this a.m. -02/03: BP soft after surgery and patient received some fluids, was slightly better this a.m., did have a drop in hemoglobin, patient to be transfused -02/04: Improved with blood administration #Mood disorder NOS -Continue duloxetine #Chronic normocytic anemia -Admission hemoglobin 10.8, is 9.1 today with no evidence of acute bleeding, suspect this is dilutional -02/03: See above #DVT ppx: SCDs, aspirin, Plavix Darline Lnudy MD Time spent in the patient's overall evaluation,decision-making process, review of diagnostic data, adjustment of management, discussion with other providers, nursing nursing and ancillary staff involved in patient's care documentation, 26minutes Charges/Coding Visit Charges Inpatient E&M: 28977 Subs Hosp L1 02/05/23 1707 <Electronically signed by Darline Lundy MD> Cosigner Signature (if applicable): CC: ~ Signed [facility] Work Phone: 1(978) 614-730310-25-2023 Progress note Author Darline Lundy [facility] February 04, 2023 8:56am Note Date/Time February 04, 2023 7 :12am [facility] Medical Records Department [address] [place] [address] Progress Note - Hospitalist 02/04/23 0710 MR#: [id number] Acct: [id number] Name: MONISHA COHN Rep #:[id number] : 1940 82 From: Darline Lundy MD PCP: JACQUI Ann Status:ADM IN [facility] Reason for Visit Reason for Visit: Diagnoses Fracture of unspecified part of neck of left femur, initial encounter for closedfracture (02/01/23) Fracture of unspecified part of neck of unspecified femur, initial encounter forclosed fracture (02/01/23) Subjective Subjective Feeling much better, pain better today as well, anxious to be discharged Objective Data Objective Data Vital Signs: Vital Signs Temp Pulse Resp BP Pulse Ox O2 Del Method 98.2 F 97 18 133/67 H 98 Room Air 02/04/23 04:54 02/04/23 04:54 02/04/23 04:54 02/04/23 04:54 02/04/23 04:54 02/04/23 04:54 Oxygen Delivery Method Room Air Weight: 74.417 kg Body Mass Index (BMI) 30.2 Intake & Output: Intake and Output for Last 24 Hours 02/02/23 02/03/23 02/04/23 23:59 23:59 23:59 Intake Total 2360 / 2760 2600 / 2600 120 / 120 Output Total 550 / 750 1025 / 1025 1100 / 1100 Balance 1809 1575 / 1575 -980 / -980 Lab / Micro Data 02/04/23 05:55 02/04/23 05:55 Labs: Laboratory Results - last 24 hr 02/02/23 05:25: Crossmatch See Detail 02/03/23 05:40: Diff Path Review Reviewed 02/03/23 07:45: Hgb 5.6 L* 02/03/23 18:15: WBC 8.4, RBC 2.89 L, Hgb 8.4 L, Hct 25.4 L, MCV 87.9, MCH 29.1, MCHC 33.1 D, RDW Std Deviation 42.0, RDW Coeff of Aleena 13.2, Plt Count 165, MPV 8.8 02/04/23 05:55: WBC 8.5, RBC 2.75 L, Hgb 8.1 L, Hct 23.8 L, MCV 86.5, MCH 29.5, MCHC 34.0, RDW Std Deviation 41.2, RDW Coeff of Aleena 13.2, Plt Count 166, MPV 8.8, Immature Gran % (Auto) 0.800, Neut % (Auto) 70.8 H, Lymph % (Auto) 15.0 L, [place]roquois % (Auto) 12.4 H, Eos % (Auto) 0.6, Baso % (Auto) 0.4, Absolute Neuts (auto)6.0, Absolute Lymphs (auto) 1.27, Nucleated RBC % 0.2, Sodium 139, Potassium 3.7, Chloride 109 H, Carbon Dioxide 24.0, Anion Gap 6, BUN 17, Creatinine 0.81, Estim Creat Clear Calc 43.08, Est GFR (MDRD) Af Amer 87, Est GFR (MDRD) Non-Af 72, BUN/Creatinine Ratio 21.0 H, Glucose 106, Calcium 7.9 L Physical Exam Narrative General: Alert, oriented, no apparent distress HEENT: Atraumatic, normocephalic Eyes: Anicteric, normal conjunctiva, extraocular movements grossly intact Neck: Supple Respiratory: Clear to auscultation bilaterally, normal respiratory effort Cardiovascular: Regular rate and rhythm GI: Soft, nontender, nondistended Extremities: SCDs in place Musculoskeletal: Moving all extremities Neuro: No overt focal neurological deficits Skin: Chronic grayish coloring of skin Psych: Cooperative Assessment & Plan Assessment/Plan (1) Closed hip fracture: QUALIFIERS: Encounter type: initial encounter Laterality: left Qualified Code(s): S72.002A - Fracture of unspecified part of neck of left femur, initial encounter for closed fracture PLAN: Plan #Displaced left intertrochanteric prox femur fx -Seen on x-ray imaging on presentation -Sustained after a mechanical fall from standing height -Ortho evaluated and recommended left femur cephalomedullary nailing -Holding Plavix to postop -OR this AM -PT/OT will be needed postop -02/03: Patient postop from left femur CMN with Dr. Grier. PT/OT, weightbearing as tolerated left lower extremities. -02/04: Pain control, PT/OT, may need placement versus home health pending PT eval #Postoperative anemia -Patient did receive some fluids and is postop with estimated blood loss of 200 cc per op report some combination may have led to low hemoglobin however still significant drop, we will plan to transfuse and recheck this afternoon, no otherevidence of blood loss. Plavix remains on hold and aspirin held this a.m. but will need to resume for stenting and DVT prophylaxis in addition SCDs and BELEN arreguin -02/04: Hemoglobin stable status posttransfusion, resume aspirin and Plavix #CAD with history of previous inferior wall STEMI -Status post PCI, on aspirin, holding Plavix until postop per recommendation -On Coreg and losartan -Seen by cardiology 12/29/2022 with no new acute concerns at that time -02/03: We will need to resume aspirin and Plavix as soon as is reasonable and hemoglobin improves with no evidence of ongoing blood loss -02/04: Hemoglobin stable, aspirin and Plavix resumed #Parkinson's disease -Complicates presentation, maintain on fall precaution, we will continue patienthome Sinemet regimen, encourage early follow-up with neurology, PT/OT/case management consultation for discharge planning. -02/03: PT/OT, Sinemet #htn -Home meds continued, normotensive this a.m. -02/03: BP soft after surgery and patient received some fluids, was slightly better this a.m., did have a drop in hemoglobin, patient to be transfused -02/04: Improved with blood administration #Mood disorder NOS -Continue duloxetine #Chronic normocytic anemia -Admission hemoglobin 10.8, is 9.1 today with no evidence of acute bleeding, suspect this is dilutional -02/03: See above #DVT ppx: SCDs, aspirin, Plavix Darline Lundy MD Time spent in the patient's overall evaluation,decision-making process, review of diagnostic data, adjustment of management, discussion with other providers, nursing nursing and ancillary staff involved in patient's care documentation, 40minutes Charges/Coding Visit Charges Inpatient E&M: 40952 Subs Hosp L2 02/04/23 0856 <Electronically signed by Darline Lundy MD> Cosigner Signature (if applicable): CC: ~ Signed [facility] Work Phone: [phone]) 102-584210-24-2023 Progress note Author Darline Lundy [facility] February 03, 2023 10:04am Note Date/Time February 03, 2023 7 :22am [facility] Medical Records Department [address] [place] [address] Progress Note - Hospitalist 02/03/23 0717 MR#: [id number] Acct: [id number] Name: MONISHA COHN Rep #:[id number] : 1940 82 From: Darline Lundy MD PCP: JACQUI Ann Status:ADM IN Location: [place] [address] Reason for Visit Reason for Visit: Diagnoses Fracture of unspecified part of neck of left femur, initial encounter for closedfracture (02/01/23) Fracture of unspecified part of neck of unspecified femur, initial encounter forclosed fracture (02/01/23) Subjective Subjective Patient reports pain is better than it was yesterday, has not had bowel movementyet, denies bleeding from anywhere, overall is feeling better than yesterday Objective Data Objective Data Vital Signs: Vital Signs Temp Pulse Resp BP Pulse Ox O2 Del Method 99.2 F H 86 16 119/53 L 98 Room Air 02/03/23 04:21 02/03/23 04:21 02/03/23 04:21 02/03/23 04:21 02/03/23 04:21 02/03/23 04:21 Oxygen Delivery Method Room Air Weight: 73.4 kg Body Mass Index (BMI) 29.7 Intake & Output: Intake and Output for Last 24 Hours 02/01/23 02/02/23 02/03/23 23:59 23:59 23:59 Intake Total 200 / 200 2360 / 2760 650 / 650 Output Total 550 / 550 550 / 750 500 / 500 Balance -350 / -350 1809 150 / 150 Lab / Micro Data 02/03/23 07:45 02/03/23 05:40 Labs: Laboratory Results - last 24 hr 02/02/23 05:25: Vitamin D 25-Hydroxy 34.0, Blood Type B POSITIVE, Antibody Screen NEGATIVE 02/03/23 05:40: WBC 7.3, RBC 2.01 L, Hgb 5.6 L*, Hct 17.9 L, MCV 89.1, MCH 27.9,MCHC 31.3 L, RDW Std Deviation 41.5, RDW Coeff of Aleena 12.8, Plt Count 179, MPV 9.2, Immature Gran % (Auto) 0.700, Neut % (Auto) 71.1 H, Lymph % (Auto) 14.6 L, [place]roquois % (Auto) 13.2 H, Eos % (Auto) 0.1, Baso % (Auto) 0.3, Absolute Neuts (auto)5.2, Absolute Lymphs (auto) 1.06, Nucleated RBC % 0, Differential Comment SCANNED, Diff Path Review May foll, Hypochromasia 1+, Sodium 137, Potassium 3.9,Chloride 108 H, Carbon Dioxide 22.0, Anion Gap 7, BUN 30 H, Creatinine 1.23 H, Estim Creat Clear Calc 28.37, Est GFR (MDRD) Af Amer 54 L, Est GFR (MDRD) Non-Af44 L, BUN/Creatinine Ratio 24.4 H, Glucose 150 H, Calcium 7.2 L Radiography Diagnostic Testing: Radiology Impression Hip X-Ray 02/02/23 14:20 IMPRESSION: Fluoroscopy during open reduction internal fixation of fracture of the intertrochanteric femur. Electronically Signed: Chun Martinez MD at 17:15 EDT , Physical Exam Narrative General: Alert, oriented, no apparent distress HEENT: Atraumatic, normocephalic Eyes: Anicteric, normal conjunctiva, extraocular movements grossly intact Neck: Supple Respiratory: Clear to auscultation bilaterally, normal respiratory effort Cardiovascular: Regular rate and rhythm GI: Soft, nontender, nondistended Extremities: SCDs in place Musculoskeletal: Moving all extremities, soft around operative site, minimal bleeding on dressing Neuro: No overt focal neurological deficits Skin: Chronic grayish coloring of skin Psych: Cooperative Assessment & Plan Assessment/Plan (1) Closed hip fracture: QUALIFIERS: Encounter type: initial encounter Laterality: left Qualified Code(s): S72.002A - Fracture of unspecified part of neck of left femur, initial encounter for closed fracture PLAN: Plan #Displaced left intertrochanteric prox femur fx -Seen on x-ray imaging on presentation -Sustained after a mechanical fall from standing height -Ortho evaluated and recommended left femur cephalomedullary nailing -Holding Plavix to postop -OR this AM -PT/OT will be needed postop -02/03: Patient postop from left femur CMN with Dr. Grier. PT/OT, weightbearing as tolerated left lower extremities. #Postoperative anemia -Patient did receive some fluids and is postop with estimated blood loss of 200 cc per op report some combination may have led to low hemoglobin however still significant drop, we will plan to transfuse and recheck this afternoon, no otherevidence of blood loss. Plavix remains on hold and aspirin held this a.m. but will need to resume for stenting and DVT prophylaxis in addition SCDs and BELEN arreguin #CAD with history of previous inferior wall STEMI -Status post PCI, on aspirin, holding Plavix until postop per recommendation -On Coreg and losartan -Seen by cardiology 12/29/2022 with no new acute concerns at that time -02/03: We will need to resume aspirin and Plavix as soon as is reasonable and hemoglobin improves with no evidence of ongoing blood loss #Parkinson's disease -Complicates presentation, maintain on fall precaution, we will continue patienthome Sinemet regimen, encourage early follow-up with neurology, PT/OT/case management consultation for discharge planning. -02/03: PT/OT, Sinemet #htn -Home meds continued, normotensive this a.m. -02/03: BP soft after surgery and patient received some fluids, was slightly better this a.m., did have a drop in hemoglobin, patient to be transfused #Mood disorder NOS -Continue duloxetine #Chronic normocytic anemia -Admission hemoglobin 10.8, is 9.1 today with no evidence of acute bleeding, suspect this is dilutional -02/03: See above #DVT ppx: SCDs Darline Lundy MD Time spent in the patient's overall evaluation,decision-making process, review of diagnostic data, adjustment of management, discussion with other providers, nursing nursing and ancillary staff involved in patient's care documentation, 40minutes Charges/Coding Visit Charges Inpatient E&M: 02241 Subs Hosp L2 02/03/23 1004 <Electronically signed by Darline Lundy MD> Cosigner Signature (if applicable): CC: ~ Signed [facility] Work Phone: 1(485) 574-711110-24-2023 Progress note Author Jaylon Boone [facility] February 03, 2023 7:05am Note Date/Time February 03, 2023 7 :05am [facility] Medical Records Department [address] [place] [address] Progress Note - Hospitalist 02/03/23703 MR#: [id number] Acct: [id number] Name: MONISHA COHN Rep #:[id number] : 1940 82 From: Jaylon Fontana PCP: SYEDA AnnC Status:ADM IN Location: [place] [address] Hospitalist Note Since hemoglobin dropped from 9.1-5.6 after surgery. Most likely acute blood loss after surgery, postop anemia. Units PRBC type and crossmatch and transfuseslowly. Patient had a STEMI in December 2021. Aspirin hold. Plavix currentlydiscontinued but informed the attending and might resume when bleeding is stable. 02/03/23704 <Electronically signed by Jaylon Boone MD> Cosigner Signature (if applicable): CC: ~ Signed [facility] Work Phone: [phone]) 262-708610-24-2023 Progress note Author Davian Grier [facility] February 03, 2023 6:03am Note Date/Time February 03, 2023 6 :03am [facility] Medical Records Department [address] [place] [address] Progress Note - Orthopedic 02/03/23600 MR#: [id number] Acct: [id number] Name: MONISHA COHN Rep #:[id number] : 1940 82 From: Davian beasley DO PCP: JACQUI Ann Status:ADM IN Location: [place] VL687-1 Subjective Subjective Patient seen and examined. Pain controlled with current pain regimen. Out of bed with nursing assistance. Denies fevers, chills, nausea vomiting, chest painor shortness of breath. Objective Data Objective Data Vital Signs: Vital Signs Temp Pulse Resp BP Pulse Ox O2 Del Method 99.2 F H 86 16 119/53 L 98 Room Air 02/03/23 04:21 02/03/23 04:21 02/03/23 04:21 02/03/23 04:21 02/03/23 04:21 02/03/23 04:21 Oxygen Delivery Method Room Air Weight: 161 lb 13.109 oz Body Mass Index (BMI) 29.7 Intake & Output: Intake and Output for Last 24 Hours 02/01/23 02/02/23 02/03/23 23:59 23:59 23:59 Intake Total 200 / 200 2360 / 2760 650 / 650 Output Total 550 / 550 550 / 750 500 / 500 Balance -350 / -350 1809 150 / 150 Lab / Micro Data 02/02/23 05:25 02/02/23 05:25 Labs: Laboratory Results - last 24 hr 02/02/23 05:25: WBC 7.0, RBC 3.29 L, Hgb 9.1 L, Hct 29.0 L, MCV 88.1, MCH 27.7, MCHC 31.4 L, RDW Std Deviation 40.4, RDW Coeff of Aleena 12.6, Plt Count 237, MPV 8.9, Immature Gran % (Auto) 0.400, Neut % (Auto) 62.1, Lymph % (Auto) 25.2, Iroquois% (Auto) 11.7 H, Eos % (Auto) 0.3, Baso % (Auto) 0.3, Absolute Neuts (auto) 4.4,Absolute Lymphs (auto) 1.77, Nucleated RBC % 0, Sodium 137, Potassium 4.1, Chloride 108 H, Carbon Dioxide 26.0, Anion Gap 3 L, BUN 26 H, Creatinine 1.11 H,Estim Creat Clear Calc 31.44, Est GFR (MDRD) Af Amer 61, Est GFR (MDRD) Non-Af 50 L, BUN/Creatinine Ratio 23.4 H, Glucose 97, Calcium 8.3 L, Total Bilirubin 1.10 H, AST 16, ALT 7 L, Alkaline Phosphatase 51, Total Protein 5.6 L, Albumin 2.8 L, Globulin 2.8, Albumin/Globulin Ratio 1.0, Vitamin D 25-Hydroxy 34.0, Blood Type B POSITIVE, Antibody Screen NEGATIVE Radiography Diagnostic Testing: Radiology Impression Hip X-Ray 02/02/23 14:20 IMPRESSION: Fluoroscopy during open reduction internal fixation of fracture of the intertrochanteric femur. Electronically Signed: Chun Martinez MD at 17:15 EDT , Physical Exam Narrative General - A&Ox3, NAD. VSS/AF Left lower extremity -incisional dressing C/D/I except for proximal incision demonstrates saturated dressing with serosanguineous drainage. SILT Sural, Saphenous, SPN, DPN, Tibial N. distributions. DP, PT 2+. BCR. DF, PF, EHL 5/5. No calf TTP. Assessment & Plan Assessment/Plan (1) Closed hip fracture: QUALIFIERS: Encounter type: initial encounter Laterality: left Qualified Code(s): S72.002A - Fracture of unspecified part of neck of left femur, initial encounter for closed fracture PLAN: POD#1 s/p left femur CMN - Pain control - Medicine following for medical management - PT/OT-weightbearing as tolerated left lower extremity. - DVT PPX -Multimodal with SCDs, BELEN hose, early mobilization, aspirin and Plavix -Dry sterile dressing changes as needed daily. - Case management - D/C planning. Anticipate SNF placement. Morning labs pending. Mobilize with therapy today. Discharge instructions: Dry sterile dressing changes as needed. Okay to remove dressings leave open to air 1 week postoperatively. Okay to shower on postoperative day #4 if no drainage. No tub soaks. Weightbearing as tolerated left lower extremity. Follow-up with me in the office in 2 weeks for staple removal and x-rays. Continue aspirin and Plavix upon discharge. 02/03/23 0603 <Electronically signed by Davian Grier DO> Cosigner Signature (if applicable): CC: ~ Signed [facility] Work Phone: [phone]) 236-392010-24-2023 Discharge summary Author Law Gold [facility] February 03, 2023 12:29am Note Date/Time February 01, 2023 2 :21pm [facility] Medical Records Department [address] [place] [address] Emergency Department Summary 02/01/23 MR#: [id number] Acct: [id number] Name: MONISHA COHN Rep #:[id number] : 1940 82 From: Niko OSMAN PCP: JACQUI Ann Status:ADM IN [facility] <JACQUI Cano - Last Filed: 02/01/23 15:12> History of Present Illness Chief Complaint: Fall Narrative Narrative: Patient is a 82-year-old female with history of Parkinson disease, CAD, MT who presents to the emergency department after mechanical fall. Patient does have Parkinson's, states she does have history of falls. She was trying to pivot today, when she did not move her feet, she fell on her left side. Patient complains of extreme pain to her left hip, left femur. She was brought in by EMS. Patient does have an off-color such as a silver rash color to her face, this is secondary to drinking silver water multiple years ago. Patient states to have a significant amount of pain. She does live with her and her daughter [facility] <JACQUI Cano - Last Filed: 02/01/23 15:12> [facility] Medical History Atherosclerotic heart disease of [place] coronary artery without angina pectoris Bladder spasms CAD (coronary artery disease) Cardiogenic shock Edema, lower extremity Emphysema with chronic bronchitis Essential (primary) hypertension Fibromyalgia Gout Hyperlipidemia Myocardial infarction Non-rheumatic mitral regurgitation Non-rheumatic tricuspid valve insufficiency Parkinsons disease Presence of stent in coronary artery (~12/22/21) Pulmonary hypertension ST elevation myocardial infarction (STEMI) of inferior wall (~12/22/21) Urgency of urination Home Medications aspirin 81 mg tablet,delayed release (Adult Aspirin Regimen) 81 mg PO DAILY 02/25/22 [History Last Taken 01/31/23] cholecalciferol (vitamin D3) 25 mcg (1,000 unit) capsule 25 mcg PO DAILY 02/25/22 [History Last Taken 01/31/23] trazodone 50 mg tablet 50 mg PO QHS PRN sleep 02/25/22 [History Last Taken Unknown] clopidogrel 75 mg tablet (Plavix) 75 mg PO DAILY #90 tabs 04/25/22 [Rx Last Taken 01/31/23] carvedilol 3.125 mg tablet 3.125 mg PO BID #60 tabs 07/31/22 [Rx Last Taken 01/31/23] fesoterodine 4 mg tablet,extended release 24 hr 4 mg PO DAILY 07/31/22 [History Last Taken 01/31/23] atorvastatin 40 mg tablet 40 mg PO DAILY #90 tabs 08/05/22 [Rx Last Taken 01/31/23] carbidopa 25 mg-levodopa 100 mg tablet 1.5 tab PO ONCE 12/29/22 [History Last Taken 01/31/23] carbidopa 25 mg-levodopa 100 mg tablet 2 tab PO TID 12/29/22 [History Last Taken 01/31/23] duloxetine 20 mg capsule,delayed release 20 mg PO BID 12/29/22 [History Last Taken 01/31/23] escitalopram oxalate 10 mg tablet 10 mg PO DAILY 12/29/22 [History Last Taken 01/31/23] losartan 25 mg tablet 25 mg PO DAILY #90 tabs 12/29/22 [Rx Last Taken 01/31/23] Allergy/AdvReac Type Severity Reaction Status Date / Time oxycodone [From Percocet] Allergy Severe Hives Verified 12/29/22 13:45 Surgical History Presence of coronary angioplasty implant and graft Social History Smoking Status: Former smoker pack-years: 30 Tobacco: How many years used: 30 alcohol intake: current alcohol intake frequency: holidays/special occasions only substance use type: does not use caffeine: Yes Type: coffee Number of servings: 2 ROS <JACQUI Cano - Last Filed: 02/01/23 15:12> ROS ED ROS Narrative Constitutional: Negative for fever, chills, weight loss, weakness Eyes: Negative for vision loss, vision change, double vision ENT: Negative for any sore throat, ear pain, congestion Cardiovascular: Negative for any chest pain, tightness, palpitations Respiratory: Negative for any cough, sputum production, hemoptysis, dyspnea, dyspnea on exertion, orthopnea Gastrointestinal: Negative for any abdominal pain, nausea, vomiting, diarrhea, constipation, blood in stool, blood in vomit : Negative for any urinary frequency, dysuria, retention, blood in urine Muscle skeletal: Negative for any muscle joint pain, stiffness, myalgias, arthralgias, neck pain, back pain. Positive for left hip, left femur pain Neurological: Negative for any headache, syncope, numbness or tingling, dizziness Skin: Negative for any rashes, lumps, itching, abrasions, lacerations Psychiatric: Negative for any depression, anxiety, stress, suicidal ideation, homicidal ideation Hematologic: Negative for any easy bruising, excessive bruising, easy bleeding Allergies: Negative for any eczema, hives, rash EXAM <JACQUI Cano - Last Filed: 02/01/23 15:12> Physical Exam Narrative Exam Narrative: Vital signs reviewed. HEET: Head normocephalic atraumatic, TMs clear bilaterally. Posterior pharynx is clear, moist mucous membranes. Nares clear bilaterally. Pupils are equal round reactive to light. Neck: Supple with no lymphadenopathy or tenderness. No signs of meningismus, negative jolt sign. Cardiac: Regular rate and rhythm no murmurs gallops or rubs, equal peripheral pulses bilaterally. Respiratory: Lungs clear to auscultation bilaterally. No chest tenderness. Abdomen: Soft, nontender, nondistended. No abdominal bruit or pulsatile masses. No hepatosplenomegaly Extremities: No peripheral edema, no signs of gross trauma or deformity. Activefull range of motion of all extremities. Patient does have internal rotation ofthe left hip, significant pain to the proximal femur, left hip. I was unable toperform any flexion or extension. +2 pedal pulse Neuro: Cranial nerves II through XII intact, no focal neurological deficits. Skin: Clean dry and intact with no rash, purpura, petechiae, vesicles or pustules. Patient does have an office overlay complexion this is chronic. Backs/flank: No CVA tenderness, no midline spinal tenderness, no deformity. Psych: Normal mood and affect. No SI, HI or acute psychosis. Const Vital Signs: 02/01/23 13:44 02/01/23 13:50 Temperature 98.4 F Temperature Source Temporal Pulse Rate 77 Respiratory Rate 20 H Respiratory Effort Normal Non-Labored Respiratory Depth Normal Respiratory Pattern Normal Blood Pressure 165/79 H Blood Pressure Mean 107 Pulse Ox 99 Oxygen Delivery Method Room Air Room Air <Dr. Law Gold DO - Last Filed: 02/01/23 15:58> Physical Exam Const Vital Signs: 02/01/23 13:44 02/01/23 13:50 Temperature 98.4 F Temperature Source Temporal Pulse Rate 77 Respiratory Rate 20 H Respiratory Effort Normal Non-Labored Respiratory Depth Normal Respiratory Pattern Normal Blood Pressure 165/79 H Blood Pressure Mean 107 Pulse Ox 99 Oxygen Delivery Method Room Air Room Air [facility] <JACQUI Cano - Last Filed: 02/01/23 15:12> [facility] Lab Data Labs: Laboratory Results - last 24 hr 02/01/23 14:05 WBC 4.8 RBC 3.93 L Hgb 10.8 L Hct 35.2 L MCV 89.6 MCH 27.5 MCHC 30.7 L RDW Std Deviation 41.8 RDW Coeff of Aleena 12.6 Plt Count 255 MPV 8.7 Immature Gran % (Auto) 0.200 Neut % (Auto) 60.2 Lymph % (Auto) 28.0 Iroquois % (Auto) 8.9 Eos % (Auto) 1.7 Baso % (Auto) 1.0 Absolute Neuts (auto) 2.9 Absolute Lymphs (auto) 1.35 Nucleated RBC % 0 PT 14.8 INR 1.2 Sodium 141 Potassium 4.2 Chloride 107 Carbon Dioxide 30.0 Anion Gap 4 L BUN 16 Creatinine 0.85 Estim Creat Clear Calc 41.05 Est GFR (MDRD) Af Amer 83 Est GFR (MDRD) Non-Af 68 BUN/Creatinine Ratio 18.8 Glucose 98 Calcium 8.6 Radiography Diagnostic Testing: Clinical Impression(s) from Imaging Studies Brain CT 02/01/23 14:00 IMPRESSION: Chronic involutional changes of the brain. Electronically Signed: Chun Martinez MD at 14:52 EDT Reading Location ID and State: [place] Tel , Service support , Chest X-Ray 02/01/23 14:00 IMPRESSION: Normal x-ray examination of the chest. Electronically Signed: Chun Martinez MD at 14:53 EDT Reading Location ID and State: [place] Tel , Service support , Femur X-Ray 02/01/23 14:00 IMPRESSION: Acute distracted fracture of the intertrochanteric left femur. Electronically Signed: Chun Martinez MD at 14:55 EDT Reading Location ID and State: [place] Tel , Service support , Pelvis X-Ray 02/01/23 14:00 IMPRESSION: Acute distracted fracture of the intertrochanteric left femur. Electronically Signed: Chun Martinez MD at 14:54 EDT Reading Location ID and State: [place] Tel , Service support , Elbow X-Ray 02/01/23 15:12 IMPRESSION: Normal x-ray examination of the elbow. Electronically Signed: Chun Martinez MD at 15:29 EDT Reading Location ID and State: [place] Tel , Service support , EKG EKG shows a normal sinus rhythm: Attestation: I personally reviewed and interpreted this EKG as follows: Comments: Normal sinus rhythm, rate of 71 bpm, OH 150 ms, QRS duration [address] elevation, no acute infarct noted. Treatment and Re-Evaluation :: Patient appears to be in moderate distress secondary to left hip, left femur pain. Patient presents to the emergency department after mechanical falls, striking the back of her head, as well as the left hip and left femur. Secondary to the physical examination, concern for a femur or hip fracture. Differential diagnosis includes groin strain, hip fracture, femur fracture, pelvis fracture. Patient be given IV fluids, IV Zofran, IV morphine. She will be sent for x-rays of the left femur, left hip as well as CT scan of the brain. Preop orders will also be placed concerning for fracture such as PT/INR, chest x-ray, EKG. EKG was unremarkable. All radiologic examinations were read, reviewed by the emergency department attending. From these reads, a plan of care will be put in place. Patient on reevaluation said her pain was under control. Patient did have a urinary Willis. Patient's labs were unremarkable, patient CBC PT/INR chemistrieswere unremarkable. Patient's CT scan of the brain showed chronic involutional changes of the brain. Patient's x-ray of the chest was unremarkable, x-ray of the pelvis and femur showed acute distracted fracture of the intertrochanteric left femur. Secondary to this finding, I did reach out to orthopedics Dr. Grier, he will likely fix the hip tomorrow. Patient will need to be admitted to hospitalist. Patient stable. <Dr. Law Gold, DO - Last Filed: 02/01/23 15:58> [facility] Narrative Medical decision making narrative: I have personally performed a face to face assessment of the patient and have reviewed the AMMON Note. I performed a substantive portion of the visit including all aspects of the following. My medeiros findings include: History: Patient presents with left hip pain that began after a fall. Patient lives in extended-care facility and fell trying to stand and get out of bed. Patient denies any head injury or loss of consciousness. Patient landed on her left hip. Patient states she was unable to ambulate after the fall. Patient states her pain is worse with any movement. Patient denies any paresthesias or weakness. Patient denies any other injuries. Exam: Vital signs are stable. Patient is afebrile. Patient is in no acute distress. Oral mucosa is pink and moist. Neck is supple. Trachea is midline. There is no JVD. Heart was regular rate and rhythm. Lungs are clear and equal bilaterally. Abdomen is soft. Bowel sounds are normal. There is no tenderness. Musculoskeletal exam reveals deformity of the left lower extremity. It is shortened and externally rotated. Pedal pulses are equal bilaterally. Sensations intact to light touch in all digits. Capillary refill was less than 2 seconds in all digits. Patient's skin has a silver hue to it. Patient statesthat she drank silver water recently and is due to that. Medical Decision Making: Differential diagnosis includes hip fracture, anemia, dehydration, and electrolyte abnormality. X-rays of the left hip will be obtained to assess for fracture. CBC will be obtained to assess for anemia. Basic metabolic profile will be obtained to assess for electrolyte abnormality and renal function. X-rays of the pelvis were obtained. There is 1 view. On my interpretation, there is an intertrochanteric fracture of the left hip. Radiologist also interpreted the x-rays and agrees. X-rays of the left femur were obtained. There are 5 views. On my independent interpretation, there is an intertrochanteric fracture of the left femoral neck. There are no other fractures noted. Radiologist also interpreted the x-rays and agrees. Portable 1 view chest x-ray was obtained. On my independent interpretation, lung garibay are clear. There is normal cardiac silhouette. Bony thorax is normal. There is no acute process noted. Radiologist also interpreted the x-ray and agrees. X-rays of the left elbow were obtained. There are 3 views. On my independent interpretation, there is no acute fracture noted. There are some degenerative changes noted. There is no effusion noted. Radiologist also interpreted the x-rays and agrees. CT scan of the brain was obtained. There is no acute intracranial abnormality. This was interpreted by the radiologist and was also independently reviewed by myself. CBC was reviewed. There is a mild anemia with a hemoglobin of 10.8 and hematocrit 35.2. Basic metabolic profile was reviewed and was essentially within normal limits. Because of the hip fracture,PT with INR was obtained. Pro time was 14.8 and INR is 1.2. EKG was obtained. On my independent interpretation, shows normal sinus rhythm with a rate of 71. There are no acute ST or T wave changes noted. Case was discussed with the hospitalist. She will admit the patient to her service. Patient understood andwas agreeable with the plan. All questions were answered. Lab Data Attestation: I reviewed the patient's lab results. Labs: Laboratory Results - last 24 hr 02/01/23 14:05 WBC 4.8 RBC 3.93 L Hgb 10.8 L Hct 35.2 L MCV 89.6 MCH 27.5 MCHC 30.7 L RDW Std Deviation 41.8 RDW Coeff of Aleena 12.6 Plt Count 255 MPV 8.7 Immature Gran % (Auto) 0.200 Neut % (Auto) 60.2 Lymph % (Auto) 28.0 Iroquois % (Auto) 8.9 Eos % (Auto) 1.7 Baso % (Auto) 1.0 Absolute Neuts (auto) 2.9 Absolute Lymphs (auto) 1.35 Nucleated RBC % 0 PT 14.8 INR 1.2 Sodium 141 Potassium 4.2 Chloride 107 Carbon Dioxide 30.0 Anion Gap 4 L BUN 16 Creatinine 0.85 Estim Creat Clear Calc 41.05 Est GFR (MDRD) Af Amer 83 Est GFR (MDRD) Non-Af 68 BUN/Creatinine Ratio 18.8 Glucose 98 Calcium 8.6 Radiography Diagnostic Testing: Clinical Impression(s) from Imaging Studies Brain CT 02/01/23 14:00 IMPRESSION: Chronic involutional changes of the brain. Electronically Signed: Chun Martinez MD at 14:52 EDT Reading Location ID and State: [id number] / [place] Tel , Service support , Chest X-Ray 02/01/23 14:00 IMPRESSION: Normal x-ray examination of the chest. Electronically Signed: Chun Martinez MD at 14:53 EDT , Femur X-Ray 02/01/23 14:00 IMPRESSION: Acute distracted fracture of the intertrochanteric left femur. Electronically Signed: Chun Martinez MD at 14:55 EDT , Pelvis X-Ray 02/01/23 14:00 IMPRESSION: Acute distracted fracture of the intertrochanteric left femur. Electronically Signed: Chun Martinez MD at 14:54 EDT , Elbow X-Ray 02/01/23 15:12 IMPRESSION: Normal x-ray examination of the elbow. Electronically Signed: Chun Martinez MD at 15:29 EDT , Discharge Plan Triage Chief Complaint: Fall ED Midlevel Provider: Niko Lorenz ED Provider: Law Gold Dx/Rx/DC Orders Clinical Impression: History of Parkinson's disease, Closed hip fracture, CHI (closed head injury), Fall Primary Care Provider: Alexandra Arreguin NP What to do if you have Problems For any increased pain, shortness of breath, bleeding, nausea or vomiting, chestpain, or any unexpected problems, contact your Primary Care Provider. Call [facility] ([phone]) or report to the closest Emergency Room. Call 911 if necessary. 02/02/232110 <Electronically signed by Niko OSMAN> Cosigner Signature (if applicable): 02/03/2328 <Electronically signed by Law Gold DO> CC: JACQUI Arreguin ~ Signed [facility] Work Phone: 1(355) 906-894510-23-2023 Procedure [facility] 02-02-2023 Progress note Author Darline Lundy [facility] February 02, 2023 10:59am Note Date/Time February 02, 2023 7 :44am [facility] Medical Records Department [address] [place] [address] Progress Note - Hospitalist 02/02/23 0739 MR#: [id number] Acct: [id number] Name: MONISHA COHN Rep #:[id number] 1 : 1940 82 From: Darline Lundy MD PCP: Alexandra Arreguin [employer] Status:ADM IN Location: [facility] [id number] Reason for Visit Reason for Visit: Diagnoses Fracture of unspecified part of neck of left femur, initial encounter for closedfracture (02/01/23) Fracture of unspecified part of neck of unspecified femur, initial encounter forclosed fracture (02/01/23) Subjective Subjective Patient with pain in left leg, feels right leg is a little bit sore but no pointtenderness and does not hurt like the other leg, denies chest pain or shortness of breath, swelling in left elbow improving Objective Data Objective Data Vital Signs: Vital Signs Temp Pulse Resp BP Pulse Ox O2 Del Method 98.8 F 83 16 116/58 L 97 Room Air 02/02/23 04:39 02/02/23 04:39 02/02/23 04:39 02/02/23 04:39 02/02/23 04:39 02/02/23 06:50 Oxygen Delivery Method Room Air Weight: 73.1 kg Body Mass Index (BMI) 29.6 Intake & Output: Intake and Output for Last 24 Hours 01/31/23 02/01/23 02/02/23 23:59 23:59 23:59 Intake Total 200 / 200 Output Total 550 / 550 200 / 200 Balance -350 / -350 -200 / -200 Lab / Micro Data 02/02/23 05:25 02/02/23 05:25 Labs: Laboratory Results - last 24 hr 02/01/23 14:05: WBC 4.8, RBC 3.93 L, Hgb 10.8 L, Hct 35.2 L, MCV 89.6, MCH 27.5,MCHC 30.7 L, RDW Std Deviation 41.8, RDW Coeff of Aleena 12.6, Plt Count 255, MPV 8.7, Immature Gran % (Auto) 0.200, Neut % (Auto) 60.2, Lymph % (Auto) 28.0, Iroquois% (Auto) 8.9, Eos % (Auto) 1.7, Baso % (Auto) 1.0, Absolute Neuts (auto) 2.9, Absolute Lymphs (auto) 1.35, Nucleated RBC % 0, PT 14.8, INR 1.2, Sodium 141, Potassium 4.2, Chloride 107, Carbon Dioxide 30.0, Anion Gap 4 L, BUN 16, Creatinine 0.85, Estim Creat Clear Calc 41.05, Est GFR (MDRD) Af Amer 83, Est GFR (MDRD) Non-Af 68, BUN/Creatinine Ratio 18.8, Glucose 98, Calcium 8.6, B-Natriuretic Peptide 145.2 H 02/02/23 05:25: WBC 7.0, RBC 3.29 L, Hgb 9.1 L, Hct 29.0 L, MCV 88.1, MCH 27.7, MCHC 31.4 L, RDW Std Deviation 40.4, RDW Coeff of Aleena 12.6, Plt Count 237, MPV 8.9, Immature Gran % (Auto) 0.400, Neut % (Auto) 62.1, Lymph % (Auto) 25.2, Iroquois% (Auto) 11.7 H, Eos % (Auto) 0.3, Baso % (Auto) 0.3, Absolute Neuts (auto) 4.4,Absolute Lymphs (auto) 1.77, Nucleated RBC % 0, Sodium 137, Potassium 4.1, Chloride 108 H, Carbon Dioxide 26.0, Anion Gap 3 L, BUN 26 H, Creatinine 1.11 H,Estim Creat Clear Calc 31.44, Est GFR (MDRD) Af Amer 61, Est GFR (MDRD) Non-Af 50 L, BUN/Creatinine Ratio 23.4 H, Glucose 97, Calcium 8.3 L, Total Bilirubin 1.10 H, AST 16, ALT 7 L, Alkaline Phosphatase 51, Total Protein 5.6 L, Albumin 2.8 L, Globulin 2.8, Albumin/Globulin Ratio 1.0 Radiography Diagnostic Testing: Radiology Impression Brain CT 02/01/23 14:00 IMPRESSION: Chronic involutional changes of the brain. Electronically Signed: Chun Martinez MD at 14:52 EDT Reading Location ID and State: [place] / [place] Tel , Service support , Chest X-Ray 02/01/23 14:00 IMPRESSION: Normal x-ray examination of the chest. Electronically Signed: Chun Martinez MD at 14:53 EDT Reading Location ID and State: [place] / [place] Tel , Service support , Femur X-Ray 02/01/23 14:00 IMPRESSION: Acute distracted fracture of the intertrochanteric left femur. Electronically Signed: Chun Martinez MD at 14:55 EDT Reading Location ID and State: [place] Tel , Service support , Pelvis X-Ray 02/01/23 14:00 IMPRESSION: Acute distracted fracture of the intertrochanteric left femur. Electronically Signed: Chun Martinez MD at 14:54 EDT Reading Location ID and State: [place] Tel , Service support , Elbow X-Ray 02/01/23 15:12 IMPRESSION: Normal x-ray examination of the elbow. Electronically Signed: Chun Martinez MD at 15:29 EDT Reading Location ID and State: [place] / [place] Tel , Service support , Physical Exam Narrative General: Alert, oriented, no apparent distress HEENT: Atraumatic, normocephalic Eyes: Anicteric, normal conjunctiva, extraocular movements grossly intact Neck: Supple Respiratory: Clear to auscultation bilaterally, normal respiratory effort Cardiovascular: Regular rate and rhythm GI: Soft, nontender, nondistended Extremities: SCDs in place Musculoskeletal: Moving all extremities, no point tenderness on right knee or calf Neuro: No overt focal neurological deficits Skin: Some bruising over right elbow Psych: Cooperative Assessment & Plan Assessment/Plan (1) Closed hip fracture: QUALIFIERS: Encounter type: initial encounter Laterality: left Qualified Code(s): S72.002A - Fracture of unspecified part of neck of left femur, initial encounter for closed fracture PLAN: Plan #Displaced left intertrochanteric prox femur fx -Seen on x-ray imaging on presentation -Sustained after a mechanical fall from standing height -Ortho evaluated and recommended left femur cephalomedullary nailing -Holding Plavix to postop -OR this AM -PT/OT will be needed postop #CAD with history of previous inferior wall STEMI -Status post PCI, on aspirin, holding Plavix until postop per recommendation -On Coreg and losartan -Seen by cardiology 12/29/2022 with no new acute concerns at that time #Parkinson's disease -Complicates presentation, maintain on fall precaution, we will continue patienthome Sinemet regimen, encourage early follow-up with neurology, PT/OT/case management consultation for discharge planning. #htn -Home meds continued, normotensive this a.m. #Mood disorder NOS -Continue duloxetine #Chronic normocytic anemia -Admission hemoglobin 10.8, is 9.1 today with no evidence of acute bleeding, suspect this is dilutional #DVT ppx: SCDs Darline Lundy MD Time spent in the patient's overall evaluation,decision-making process, review of diagnostic data, adjustment of management, discussion with other providers, nursing nursing and ancillary staff involved in patient's care documentation, 36minutes Charges/Coding Visit Charges Inpatient E&M: 40199 Subs Hosp L2 02/02/23 1059 <Electronically signed by Darline Lundy MD> Cosigner Signature (if applicable): CC: ~ Signed [facility] Work Phone: 1(591) 122-650310-22-2023 Progress note Author Jaylon Boone [facility] February 01, 2023 9:42pm Note Date/Time February 01, 2023 9 :42pm [facility] Medical Records Department [address] [place] [id number] Progress Note - Hospitalist 02/01/232141 MR#: [id number] Acct: [id number] Name: SUKIMONISHA ARIEL Rep #:[id number] 1 : 1940 82 From: Jaylon Fontana PCP: SYEDA AnnC Status:ADM IN Location: [place] [address]1 Hospitalist Note As per the nurse, patient changed her mind from DNRCC arrest to full code. She wants to be full code. CODE STATUS changed to full code. 02/01/232141 <Electronically signed by Jaylon Boone MD> Cosigner Signature (if applicable): CC: ~ Signed [facility] Work Phone: 1(531) 474-548210-22-2023 Consult note Author Davian Grier [facility] February 01, 2023 7:27pm Note Date/Time February 01, 2023 7 :27pm [facility] Medical Records Department [facility] [place] [address] [address] [place] [address] Consultation - Orthopedics 02/01/231921 MR#: [id number] Acct: [id number] Name: MONISHA COHN Rep #:[id number] 3 : 1940 82 From: Davian beasley DO PCP: JACQUI Ann Status:ADM IN Location: [place] [address]1 HPI Consult Data Date of Consult: 02/01/23 HPI Narrative Reason for Consultation: Left hip fracture HPI Narrative: MONISHA COHN, is a 82 F who presents to [facility] emergency department after a mechanical fall from standing height. She states her upper body was out in front of her lower body was able to keep up causing her to fall. She denies any head injury or loss consciousness. She states he did hit her left elbow as well. She is able to flex and extend her elbow without difficulty. 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 Patient denies any antecedent left hip or groin pain. She was admitted under the service of the hospitalist after x-rays revealed a displaced left intertrochanteric proximal femur fracture. I saw patient consultation. At time my examination patient denies any other complaints other than her left hip pain. She denies fevers, chills, nausea vomiting, chest pain or shortness of breath. Denies any problems anesthesia in the past. Denies history of VTE. [facility] Medical History (Updated 02/01/23 @ 19:[address] Davian Grier, DO) Atherosclerotic heart disease of [place] coronary artery without angina pectoris Bladder spasms CAD (coronary artery disease) Cardiogenic shock Depression Edema, lower extremity Emphysema with chronic bronchitis Essential (primary) hypertension Fibromyalgia Former tobacco use Gout Hyperlipidemia Hypertension Myocardial infarction Non-rheumatic mitral regurgitation Non-rheumatic tricuspid valve insufficiency Parkinsons disease Presence of stent in coronary artery (~12/22/21) Pulmonary hypertension ST elevation myocardial infarction (STEMI) of inferior wall (~12/22/21) Urgency of urination Home Medications aspirin 81 mg tablet,delayed release (Adult Aspirin Regimen) 81 mg PO DAILY 02/25/22 [History Last Taken 01/31/23] cholecalciferol (vitamin D3) 25 mcg (1,000 unit) capsule 25 mcg PO DAILY 02/25/22 [History Last Taken 01/31/23] trazodone 50 mg tablet 50 mg PO QHS PRN sleep 02/25/22 [History Last Taken Unknown] clopidogrel 75 mg tablet (Plavix) 75 mg PO DAILY #90 tabs 04/25/22 [Rx Last Taken 01/31/23] carvedilol 3.125 mg tablet 3.125 mg PO BID #60 tabs 07/31/22 [Rx Last Taken 01/31/23] fesoterodine 4 mg tablet,extended release 24 hr 4 mg PO DAILY 07/31/22 [History Last Taken 01/31/23] atorvastatin 40 mg tablet 40 mg PO DAILY #90 tabs 08/05/22 [Rx Last Taken 01/31/23] carbidopa 25 mg-levodopa 100 mg tablet 1.5 tab PO ONCE 12/29/22 [History Last Taken 01/31/23] carbidopa 25 mg-levodopa 100 mg tablet 2 tab PO TID 12/29/22 [History Last Taken 01/31/23] duloxetine 20 mg capsule,delayed release 20 mg PO BID 12/29/22 [History Last Taken 01/31/23] escitalopram oxalate 10 mg tablet 10 mg PO DAILY 12/29/22 [History Last Taken 01/31/23] losartan 25 mg tablet 25 mg PO DAILY #90 tabs 12/29/22 [Rx Last Taken 01/31/23] Allergy/AdvReac Type Severity Reaction Status Date / Time oxycodone [From Percocet] Allergy Severe Hives Verified 12/29/22 13:45 Family History (Updated 02/01/23 @ 16:[address] Jasmin Steele MD) Father Heart disease Family History other Surgical History (Updated 02/01/23 @ 16:[address] Jasmin Steele MD) History of ankle surgery History of hysterectomy Presence of coronary angioplasty implant and graft S/P appendectomy Social History (Updated 02/01/23 @ 16:[address] Jasmin Steele MD) household members: friend(s) Smoking Status: Former smoker pack-years: 30 Tobacco: How many years used: 30 how long ago did patient quit smoking: Quit 20+ years prior. alcohol intake: current alcohol intake frequency: holidays/special occasions only substance use type: does not use caffeine: Yes Type: coffee Number of servings: 2 ROS ROS Narrative 12 point review systems obtained, negative unless otherwise noted in HPI. Vital Signs Vital Signs Vital Signs: 02/01/23 13:44 02/01/23 13:50 02/01/23 16:04 Temperature 98.4 F 97.8 F Temperature Source Temporal Temporal Pulse Rate 77 73 Respiratory Rate 20 H 18 Respiratory Effort Normal Non-Labored Respiratory Depth Normal Respiratory Pattern Normal Blood Pressure 165/79 H 150/71 H Blood Pressure Mean 107 97 Blood Pressure Source Monitor Blood Pressure Position Semi-Fowlers Blood Pressure Location Left Arm Pulse Ox 99 98 Oxygen Delivery Method Room Air Room Air Room Air 02/01/23 15:59 Temperature Temperature Source Pulse Rate Respiratory Rate Respiratory Effort Normal Non-Labored Respiratory Depth Normal Respiratory Pattern Normal Blood Pressure Blood Pressure Mean Blood Pressure Source Blood Pressure Position Blood Pressure Location Pulse Ox Oxygen Delivery Method Room Air Weight Weight: 161 lb 4.8 oz Body Mass Index (BMI) 29.5 Physical Exam Narrative General -A&Ox3, NAD, appears stated age. Vital signs stable, afebrile. Respiratory -normal work of breathing, no intercostal retractions. CV -pulses regular, brisk capillary refill ?4 limbs. Abdomen-soft, nontender, nondistended. No guarding, rigidity, rebound tenderness. Musculoskeletal/neurologic -full range of motion nontender throughout bilateral upper extremities, right lower extremity with full sensation and strength in alldermatomes and myotomes. Subcutaneous hematoma/hemorrhagic bursitis left olecranon. Full flexion extension of the left elbow without focal tenderness. No midline cervical tenderness. Left lower extremity-no obvious deformity. Pain with logroll of the left lowerextremity. Nontender throughout the left knee femoral shaft, tibial shaft and left foot/ankle. Brisk capillary refill. Sensation intact light touch L3-S1 dermatomes. DF, PF, EHL intact. DP, PT 2+. Pelvis is stable, nontender. Skinis intact without lacerations, abrasions. No ecchymosis noted. Lab / Micro Data 02/01/23 14:05 02/01/23 14:05 Labs: Laboratory Results - last 24 hr 02/01/23 14:05: WBC 4.8, RBC 3.93 L, Hgb 10.8 L, Hct 35.2 L, MCV 89.6, MCH 27.5,MCHC 30.7 L, RDW Std Deviation 41.8, RDW Coeff of Aleena 12.6, Plt Count 255, MPV 8.7, Immature Gran % (Auto) 0.200, Neut % (Auto) 60.2, Lymph % (Auto) 28.0, Iroquois% (Auto) 8.9, Eos % (Auto) 1.7, Baso % (Auto) 1.0, Absolute Neuts (auto) 2.9, Absolute Lymphs (auto) 1.35, Nucleated RBC % 0, PT 14.8, INR 1.2, Sodium 141, Potassium 4.2, Chloride 107, Carbon Dioxide 30.0, Anion Gap 4 L, BUN 16, Creatinine 0.85, Estim Creat Clear Calc 41.05, Est GFR (MDRD) Af Amer 83, Est GFR (MDRD) Non-Af 68, BUN/Creatinine Ratio 18.8, Glucose 98, Calcium 8.6, B-Natriuretic Peptide 145.2 [address] Rad[address] Impression Brain CT 02/01/23 14:00 IMPRESSION: Chronic involutional changes of the brain. Electronically Signed: Chun Martinez MD at 14:52 EDT , Chest X-Ray 02/01/23 14:00 IMPRESSION: Normal x-ray examination of the chest. Electronically Signed: Chun Martinez MD at 14:53 EDT Reading Location ID and State: [id number] / [employer] , Service support , Femur X-Ray 02/01/23 14:00 IMPRESSION: Acute distracted fracture of the intertrochanteric left femur. Electronically Signed: Chun Martinez MD at 14:55 EDT Reading Location ID and State: [id number] / [employer] , Service support , Pelvis X-Ray 02/01/23 14:00 IMPRESSION: Acute distracted fracture of the intertrochanteric left femur. Electronically Signed: Chun Martinez MD at 14:54 EDT Reading Location ID and State: [place] / [employer] , Service support , Elbow X-Ray 02/01/23 15:12 IMPRESSION: Normal x-ray examination of the elbow. Electronically Signed: Chun Martinez MD at 15:29 EDT Reading Location ID and State: [place] / [employer] , Service support , Assessment & Plan Assessment/Plan (1) Closed hip fracture: QUALIFIERS: Encounter type: initial encounter Laterality: left Qualified Code(s): S72.002A - Fracture of unspecified part of neck of left femur, initial encounter for closed fracture PLAN: Patient sustained a left intertrochanteric proximal femur fracture. -Closed, neurovascularly intact -Recommending surgical intervention in the form of left femur cephalomedullary nailing -I discussed the procedure-its risks, benefits and alternative. Risks include but are not limited to bleeding, infection, loss of life or limb, risk of anesthesia, persistent pain or disability, need for additional surgery, nonunion, malunion, failure of orthopedic hardware, neurovascular injury, DVT orPE. Patient expressed understanding these risks and wished proceed with surgery. -Maintenance IV fluids, clear liquid diet after midnight n.p.o. at 2 hours priorto surgery -Type and screen -2 g Ancef on-call to the OR -Bedrest, heel protectors -Plan to proceed with surgery tomorrow when OR becomes available -Hold Plavix until postop. Thank you for this consultation. 02/01/231926 <Electronically signed by Davian Grier DO> Cosigner Signature (if applicable): CC: JACQUI Arreguin; Dr. Davian Grier DO~ Signed [facility] Work Phone: 1(958) 122-471910-22-2023 History and physical note Author Jasmin Steele [facility] February 01, 2023 4:28pm Note Date/Time February 01, 2023 3 :26pm [facility] Medical Records Department [address] [place] [id number] H&P Exam - Hospitalist 02/01/23 1526 MR#: [id number] Acct: [id number] Name: MONISHA COHN Rep #:[id number] : 1940 82 From: Jasmin Steele MD PCP: JACQUI Ann Status:ADM IN Location: [facility] [id number] HPI - General General Date of Admission: 02/01/23 Date of Service: 02/01/23 Chief Complaint: Fall, L hip pain. HPI Narrative The patient is an 82 y/o F w/ PMHx: CAD s/p PCI, HTN, HLD, COPD, Parkinson's disease, Chronic urgency/bladder spasms following with Urology, Gout, Fibromyalgia, Hx usage "silver water" with chronically silver skin hue, Obesity who presents to [facility] ED on 02/01/23 with history of mechanical fall attempting to pivot with her walker however her feet did not move as quickly as her upper body and she fell onto her left side with significant debility and pain to the left hip and leg prompting EMS call and transition to the ED for evaluation. Patient does have a history of frequent falls but is improved sinceshe uses a walker. Patient in the ED currently rating her pain 7 out of 10 in severity specifically to the left hip, worse with any movement. Work-up in the ED included T98.4, heart rate 77, BP 165/79, respiratory rate 20, 99% on room air, CBC with WBC 4.8, hemoglobin 10.8, MCV 89.6, platelet 255 without marked shift, unremarkable coags, unremarkable BMP, CT brain with chronic involutional changes, chest x-ray with no acute cardiopulmonary findings, plain film of the left femur with an acute distracted fracture of the intertrochanteric left femur, plain film of the pelvis with an acute distracted fracture of the intertrochanteric left femur, EKG with sinus rhythm with no acute evidence of ischemia. Discussed patient allergies specifically oxycodone which causes hives. She notes she is able to tolerate [place] and per daughter Dilaudid low-dose. In the ED she was administered Zofran 4 mg IV x2 and morphine 4 mg IV x2 and did not have a significant reaction thus far but discussed and if any concerns arise or hives would administer medications as needed. [facility] Medical History (Updated 02/01/23 @ 16:[address] Jasmin Steele MD) Atherosclerotic heart disease of [place] coronary artery without angina pectoris Bladder spasms CAD (coronary artery disease) Cardiogenic shock Depression Edema, lower extremity Emphysema with chronic bronchitis Essential (primary) hypertension Fibromyalgia Former tobacco use Gout Hyperlipidemia Hypertension Myocardial infarction Non-rheumatic mitral regurgitation Non-rheumatic tricuspid valve insufficiency Parkinsons disease Presence of stent in coronary artery (~12/22/21) Pulmonary hypertension ST elevation myocardial infarction (STEMI) of inferior wall (~12/22/21) Urgency of urination Home Medications aspirin 81 mg tablet,delayed release (Adult Aspirin Regimen) 81 mg PO DAILY 02/25/22 [History Last Taken 01/31/23] cholecalciferol (vitamin D3) 25 mcg (1,000 unit) capsule 25 mcg PO DAILY 02/25/22 [History Last Taken 01/31/23] trazodone 50 mg tablet 50 mg PO QHS PRN sleep 02/25/22 [History Last Taken Unknown] clopidogrel 75 mg tablet (Plavix) 75 mg PO DAILY #90 tabs 04/25/22 [Rx Last Taken 01/31/23] carvedilol 3.125 mg tablet 3.125 mg PO BID #60 tabs 07/31/22 [Rx Last Taken 01/31/23] fesoterodine 4 mg tablet,extended release 24 hr 4 mg PO DAILY 07/31/22 [History Last Taken 01/31/23] atorvastatin 40 mg tablet 40 mg PO DAILY #90 tabs 08/05/22 [Rx Last Taken 01/31/23] carbidopa 25 mg-levodopa 100 mg tablet 1.5 tab PO ONCE 12/29/22 [History Last Taken 01/31/23] carbidopa 25 mg-levodopa 100 mg tablet 2 tab PO TID 12/29/22 [History Last Taken 01/31/23] duloxetine 20 mg capsule,delayed release 20 mg PO BID 12/29/22 [History Last Taken 01/31/23] escitalopram oxalate 10 mg tablet 10 mg PO DAILY 12/29/22 [History Last Taken 01/31/23] losartan 25 mg tablet 25 mg PO DAILY #90 tabs 12/29/22 [Rx Last Taken 01/31/23] Allergy/AdvReac Type Severity Reaction Status Date / Time oxycodone [From Percocet] Allergy Severe Hives Verified 12/29/22 13:45 Family History (Updated 02/01/23 @ 16:[address] Jasmin Steele MD) Father Heart disease other (Mother during childbirth.) Surgical History (Updated 02/01/23 @ 16:[address] Jasmin Steele MD) History of ankle surgery History of hysterectomy Presence of coronary angioplasty implant and graft S/P appendectomy Social History (Updated 02/01/23 @ 16:[address] Jasmin Steele MD) household members: friend(s) Smoking Status: Former smoker pack-years: 30 Tobacco: How many years used: 30 how long ago did patient quit smoking: Quit 20+ years prior. alcohol intake: current alcohol intake frequency: holidays/special occasions only substance use type: does not use caffeine: Yes Type: coffee Number of servings: 2 ROS ROS Narrative Admission Review of Systems: CONSTITUTIONAL: No weight loss, fever, chills, + weakness or fatigue. HEENT: Eyes: No visual loss, blurred vision, double vision or yellow sclerae. Ears, Nose, Throat: No hearing loss, sneezing, congestion, runny nose or sore throat. SKIN: No rash or itching, lesions, wounds. + Chronic blue/silver hued skin. CARDIOVASCULAR: No chest pain, chest pressure or chest discomfort, palpitations,edema, orthopnea, syncopal events. RESPIRATORY: No shortness of breath, cough or sputum, wheezing, hemoptysis. GASTROINTESTINAL: No anorexia, nausea, vomiting or diarrhea, abdominal pain, melena, BRBPR. GENITOURINARY: + Chronic urgency issues. No dysuria, frequency, retention. NEUROLOGICAL: + Underlying Parkinson's with affected gait/tremors. No headache, dizziness, syncope, paralysis, numbness or tingling in the extremities, focal weakness, change in bowel or bladder control, seizure. MUSCULOSKELETAL: + muscle, back pain, joint pain or stiffness. HEMATOLOGIC: + anemia. + Easy bleeding or bruising. LYMPHATICS: No enlarged nodes. No history of splenectomy. PSYCHIATRIC: + history of depression or anxiety. ENDOCRINOLOGIC: No reports of sweating, cold or heat intolerance. No polyuria orpolydipsia. ALLERGIES: + history of hives. Vital Signs Vital Signs Vital Signs: 02/01/23 13:44 02/01/23 13:50 Temperature 98.4 F Temperature Source Temporal Pulse Rate 77 Respiratory Rate 20 H Respiratory Effort Normal Non-Labored Respiratory Depth Normal Respiratory Pattern Normal Blood Pressure 165/79 H Blood Pressure Mean 107 Pulse Ox 99 Oxygen Delivery Method Room Air Room Air Weight Weight: 169 lb 15.622 oz Body Mass Index (BMI) 31.1 Physical Exam Narrative Physical Examination: General: Awake, alert, oriented x 3 and cooperative, laying in the ED bed, appears comfortable but currently reports pain 6-7 out of 10 in severity. Skin: Normal color, normal turgor, no icterus, no cyanosis except for significant blue/silver hue to the skin more strong in the facial and upper neckregion. HEENT: AT/NC, EOMI, PERRLA, M mildly dry M, no carotid bruits or JVD noted. Lungs: CTA bilaterally, moderate effort, mild decrease BL bases, no rales, ronchi or wheezing. Heart: Regular rate and rhythm; no gallop, rub audible. Abdomen: Soft, overweight, NTTP, ND, mildly hyperactive BS, no HSM. Extremities: No cyanosis, no clubbing, peripheral pulses intact, status post fall with left hip fracture, mildly externally rotated. Neurological: Patient awake, alert, oriented as noted, cognitive function intact; pupils equally reactive to light and accommodation, cranial nerves II-XII grossly normal, moving extremities except expected limited left lower extremity movement given fall with left hip fracture, strength accordingly severely globally decreased. Psychiatric: Affect appears mildly flat otherwise normal, no acute evidence of depressive or anxiety feelings. Results Lab / Micro Data 02/01/23 14:05 02/01/23 14:05 Labs: Laboratory Results - last 24 hr 02/01/23 14:05: WBC 4.8, RBC 3.93 L, Hgb 10.8 L, Hct 35.2 L, MCV 89.6, MCH 27.5,MCHC 30.7 L, RDW Std Deviation 41.8, RDW Coeff of Aleena 12.6, Plt Count 255, MPV 8.7, Immature Gran % (Auto) 0.200, Neut % (Auto) 60.2, Lymph % (Auto) 28.0, [place]% (Auto) 8.9, Eos % (Auto) 1.7, Baso % (Auto) 1.0, Absolute Neuts (auto) 2.9, Absolute Lymphs (auto) 1.35, Nucleated RBC % 0, PT 14.8, INR 1.2, Sodium 141, Potassium 4.2, Chloride 107, Carbon Dioxide 30.0, Anion Gap 4 L, BUN 16, Creatinine 0.85, Estim Creat Clear Calc 41.05, Est GFR (MDRD) Af Amer 83, Est GFR (MDRD) Non-Af 68, BUN/Creatinine Ratio 18.8, Glucose 98, Calcium 8.[address] 02/01/23 14:00 IMPRESSION: Chronic involutional changes of the brain. Electronically Signed: Chun Martinez MD at 14:52 EDT Reading Location ID and State: [id number] / [employer] , Service support , Chest X-Ray 02/01/23 14:00 IMPRESSION: Normal x-ray examination of the chest. Electronically Signed: Chun Martinez MD at 14:53 EDT , Femur X-Ray 02/01/23 14:00 IMPRESSION: Acute distracted fracture of the intertrochanteric left femur. Electronically Signed: Chun Martinez MD at 14:55 EDT , Pelvis X-Ray 02/01/23 14:00 IMPRESSION: Acute distracted fracture of the intertrochanteric left femur. Electronically Signed: Chun Martinez MD at 14:54 EDT , Assessment & Plan Assessment/Plan (1) Closed hip fracture: PLAN: Plan The patient is an 82 y/o F w/ PMHx: CAD s/p PCI, HTN, HLD, COPD, Parkinson's disease, Chronic urgency/bladder spasms following with Urology, Gout, Fibromyalgia, Hx usage "silver water" with chronically silver skin hue, Obesity who presents to the [facility] ED on 02/01/23 with history of mechanical fall attempting to pivot with her walker however her feet did not move as quickly as her upper body and she fell onto her left side with significant debility and pain to the left hip and leg prompting EMS call and transition to the ED for evaluation. #1. General debility, left hip pain s/p mechanical fall w/ acute distracted fracture of the intertrochanteric left femur: Orthopedic surgery Dr. Grier consulted from ED. Will admit to MS, maintain NPO after midnight, continue gentle IVFs, willis placement, monitor I/Os, frequent positioning, fall precautions, Pain, anti- emetic regimen. PT/OT following operative intervention. CM consulted for discharge planning. Per NSQIP patient certainly elevated risk with age, underlying history, however,underlying co-morbidities well controlled and did have recent cardiology visit 12/2022, EKG without acute concerning findings with only mildly elevated BNP. Reviewed case and findings with Dr. Polo and he is amenable for her to transition to the OR in am without further cardiac evaluation. Of note given Parkinson's disease w/ fall risk certainly likely higher risk for recurrence thus discussed need for SNF placement following intervention. #2. CAD: Previous history STEMI inferior wall, status post PCI, continue aspirin, temporally hold Plavix for operative intervention as noted, continue Coreg and losartan regimen, recent 12/29/2022 cardiology evaluation with no acuteconcerns at that time, BNP obtained and only mildly elevated 145.2. Reviewed history and case with Dr. Polo and given recent Cardiology evaluation, no concerning symptoms, amenable to transition to OR. #3. Parkinson's disease: Complicates presentation, maintain on fall precaution,we will continue patient home Sinemet regimen, encourage early follow-up with neurology, PT/OT/case management consultation for discharge planning. #4. Hypertension: Continue home regimen including losartan, Coreg, PRN hydralazine. #5. Hyperlipidemia: We will continue patient on statin therapy. #6. Anxiety and depression: We will continue patient home duloxetine regimen aswell as low-dose nightly trazodone, need to clarify but it appears that patient is also on escitalopram. #7. Chronic normocytic anemia: Admission hemoglobin 10.8, MCV 89.6, baseline prior 11.9, will continue to trend. #8. Former tobacco use: Encourage continued tobacco cessation. #9. DVT prophylaxis: SCDs, hold chemoprophylaxis for planned OR in AM. #10. CODE status: Patient HCPOA and living will are not in place but she notes her daughter who is present would be her decision-maker if she was unable. Discussed CODE status at length including difference between FULL code, DNR-CCA and DNR-CC status. Following discussions about the differences in these status, requested DNR-CCA, no intubatoin. Advanced Care Planning Face to Face Time: 16 minutes. Charges/Coding Visit Charges Inpatient E&M: 57407 Init Hosp L3 Procedures Hospitalists Procedures: 82712 Advncd Care Plan 30 Min 02/01/23 1628 <Electronically signed by Jasmin Steele MD> Cosigner Signature (if applicable): CC: JACQUI Arreguin; Dr. Jasmin Steele MD~ Signed [facility] Work Phone: [phone]) 239-187310-10-2023 Instructions* Patient Instructions* Em Flynn APRN.CNP - 01/20/2023 3:48 PM EDT It was [...] points or more) please discuss with your licensing services clerk. Date/Time BP Sitting Heart Rate Sitting BP [...] or you can send a message through [employer]. You can also now schedule and select appointments through [employer]. Em Flynn APRN.CNP [facility] History of Present illness Narrative* Em Flynn APRN.CNP - 01/20/2023 3:00 PM EDT [facility] - FOLLOW UP EVALUATION Alexandra Arreguin APRN.CEMENTER MACHINE [address] [facility] [address] [facility] [address] Dear Alexandra Arreguin APRN.CEMENTER MACHINE: I had the pleasure of seeing Ms. Cohn for follow-up today. As you know she [...] exercising and going to physical therapy at [facility] and this is going well so she feels she is doing good. They are thinking about moving back to [place] as other than the above, they are [...] them. These started before she moved to [place] and after shehad her heart attack while in the hospital. Apathy: no She has motivation but there is not much to do where she is living and she and her do not drive. Impulse control disorder: No Palliative Concerns: Caregiver burden: Spiritual concerns: No Advanced directives on file: No I offered a SW consult but she wants to wait until she moves back to [place]. Palliative services: Therapy and Exercise: Last PT Date: January 2023 Last OT Date: Date: Exercises Regularly: Yes ALLERGIES Allergen Reactions [...] Objective Vital Signs: Ht 157.5 cm (5' 2") Wt 70.8 kg (156 lb) LMP (LMP [...] the mouth, such as less spontaneous smiling, butlips not parted. Finger Taps Right 3-Moderate. a) [...] b) moderate slowing, c) the amplitude decrements startingafter the 1st laiu-uyx-gyoms sequence. Hand Movements Left 2-Mild. a) 3 [...] to one side, but patient can correct postureto normal posture when asked to do so. [...] No tremor. Assessment and Plan: Assessment Mrs. Cohn is a right-handed 82 year old year old female with Parkinson's disease since 2019. She has been experiencing hallucinations since she moved to [place], but she was embarrassed so she said [...] if this occurs frequently and to have informationwhen discussing with her licensing services clerk. She also believes she has only been taking one of the two blood pressure medications prescribed (we called her licensing services clerk office and verified that she is supposed [...] points or more) please discuss with your licensing services clerk. Date/Time BP Sitting Heart Rate Sitting BP [...] Duloxetine 20mg 2 Level of service : 45267 (40-54 min). Time spent 50 min on the day of service, which included preparing to see the patient, nncd-uz-nlet patient care, completing clinical documentation, obtaining and/or reviewing separately obtained history, performing a medically appropriate examination, counseling and educating the patient/family/caregiver, and ordering medications, tests, or procedures. Em Flynn APRN.CEMENTER MACHINE documented in this encounterBl[facility]06-29-2023 Miscellaneous Notes* Addendum Note - Linden Flynn MD - 10/09/2022 1:32 PM EDTAddended by: LINDEN FLYNN on: 10/09/2022 01:32 PM Modules accepted: Orders documented in this [facility]06-29-2023 Instructions* Patient Instructions* Linden Flynn MD - 10/09/2022 1:28 PM [...] or you can send a message through [employer]. You can also now schedule and select appointments through [employer]. Linden Flynn MD documented in this [facility]06-29-20[facility] History of Present illness Narrative* Linden Flynn MD - 10/09/2022 1:00 PM EDT [facility] - NEW PATIENT EVALUATION I had the pleasure of evaluating Ms. Cohn in our clinic today. She is a [...] she used to. She moved here from [place]. She is blue from taking silver water [...] Objective Vital Signs: Ht 157.5 cm (5' 2") Wt 68.6 kg (151 lb 4.8 oz) [...] Recent and remote memory are intact. Speech isnormal. Language is fluent with no aphasia. Cranial [...] Achilles 2+ 2+ Plantar Downgoing Downgoing Coordination K[place]ala-ut-vafx, rapid alternating movements and lqjb-gg-qjlw normal bilaterally without dysmetria. Gait Casual gait [...] b) moderate slowing, c) the amplitude decrements startingafter the 1st gkks-ldf-bpjyy sequence. Hand Movements Left 3-Moderate. a) more than 5 interruptions during the movement or at least one longer arrest (freeze) in ongoing movement, b) moderate slowing, c) the amplitude decrements starting after the 1st zfic-bbd-dzhpm sequence. Arm Movements Right 2-Mild. a) 3 [...] during the tapping movements or at least onelonger arrest (freeze) in ongoing movement, b) moderate [...] Filed Total Assessment and Plan: Assessment Ms. Cohn is a right-handed 82 year old year [...] Sincerely, Linden Flynn MD [facility] Diagnosis Onset Date Resolution Status Bladder spasms acute Edema, lower extremity acute Gout acute Hyperlipidemia acute Urgency of urination acute [facility] Work Phone: Evaluation note* Diagnosis Parkinson's disease (HCC)- Primary Paralysis agitans [place] of skin, accidental or unintentional, sequela Depression, unspecified depression type [facility]* Diagnosis Parkinson's disease without dyskinesia or fluctuating manifestations- Primary Hallucinations Orthostatic hypotension Insomnia, unspecified type [facility]* Diagnosis Onset Date Resolution Status CAD (coronary artery disease) chronic Essential (primary) hypertension chronic Hyperlipidemia chronic Non-rheumatic mitral regurgitation chronic Parkinsons disease chronic CHI (closed head injury) acu te Closed hip fracture acute Fall acute History of Parkinson's disease acute [facility] Work Phone: Evaluation note* Diagnosis Onset Date Resolution Status Closed hip fracture acute History of Parkinson's disease acute [facility] Work Phone: Evaluation note* Diagnosis Parkinson's disease without dyskinesia or fluctuating manifestations (HCC)- Primary Orthostatic hypotension Dysphagia, unspecified type Left arm pain Pain in limb Numbness and tingling in left arm Disturbance of skin sensation documented [facility]* Diagnosis Protrusion of cervical intervertebral disc- Primary documented [facility]* Diagnosis Acute pain of left shoulder- Primary Protrusion of cervical intervertebral disc Pain in left elbow Pain in joint, upper arm documented [facility]* Diagnosis Chronic left shoulder pain- Primary Pain in joint, shoulder region documented [facility] this [facility]* Diagnosis Parkinson's disease without dyskinesia or fluctuating manifestations (HCC)- Primary Orthostatic hypotension Hallucinations Dysphagia, unspecified type documented [facility] this [facility]* Diagnosis Acute pain of left shoulder documented [facility]* Diagnosis Chronic left shoulder pain Pain in joint, shoulder region [facility]* Diagnosis Dysphagia, unspecified type- Primary Parkinson's disease without dyskinesia or fluctuating manifestations (HCC) Orthostatic hypotension [facility]* Diagnosis Dysphagia, unspecified type- Primary Parkinson's disease with dyskinesia without fluctuating manifestations (HCC) Numbness and tingling of both feet Hallucinations documented in this [facility]* Diagnosis Numbness and tingling of both feet documented in this [facility]* Diagnosis Onset Date Resolution Status Admit Date 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 CAD (coronary artery disease) chroni c September 27, 2024 10:37am Essential (primary) hypertension chr onic September 27, 2024 10:37am Hyperlipidemia chronic September 27, 2024 10:37am Non-rheumatic mitral regurgitation chronic September 27, 2024 10:37am Parkinsons disease chronic September 112024 10:37am [facility] Work Phone: Reason for referral (narrative)* Diagnostic Procedure Only (Routine) - Pending Review Specialty Diagnoses / Procedures Referred By Contac t Referred To Contact XR IMAGING Diagnoses Chronic left shoulder pain Procedures XR SHOULDER GENERAL 3V OR MORE AP/TRUE AP/OTHER LEFT RADEX SHOULDER COMPLETE MINIMUM 2 VIEWS Claudia Manuel PA-C [address] [place] [address] [place] [address] Referral ID Status Reason Start Date Expiration Date Visits Requested Visits Authorized [id number] Pending Review Auto-Generat ed Referral 09/15/2023 10/13/2024 1 1 [facility] for referral (narrative)* Diagnostic Procedure Only (Routine) - Closed Specialty Diagnoses / Procedures Referred By Contac t Referred To Contact XR IMAGING Diagnoses Chronic left shoulder pain Procedures XR SHOULDER GENERAL 3V OR MORE AP/TRUE AP/OTHER LEFT RADEX SHOULDER COMPLETE MINIMUM 2 VIEWS Claudia Manuel PA-C [address] [place] [address] [place] [address] Referral ID Status Reason Start Date Expiration Date V isits Requested Visits Authorized [id number] Closed Auto-Generate d Referral 09/15/2023 10/13/2024 1 1 [facility] for referral (narrative)No reason for referral information availableWFirelands [facility] Work Phone: Reason for visit Narrative* Diagnostic Procedure Only (Routine) - Closed Specialty Diagnoses / Procedures Referred By Contac t Referred To Contact XR IMAGING Diagnoses Chronic left shoulder pain Procedures XR SHOULDER GENERAL 3V OR MORE AP/TRUE AP/OTHER LEFT RADEX SHOULDER COMPLETE MINIMUM 2 VIEWS Claudia Manuel PA-C [address] [place] [address] [place] [address] Referral ID Status Reason Start Date Expiration Date V isits Requested Visits Authorized [id number] Closed Auto-Generate d Referral 09/15/2023 10/13/2024 1 1 [facility] Chief Complaint and Reason for Visit Chief Complaint medication refills & Labs Ankle pain & urine dip Reason for Visit Bladder spasms Edema, lower extremity Gout Hyperlipidemia Urgency of urination Chief Complaint 6 M FU E-ORDER FALL, L HIP FRACTURE Reason for Visit CAD (coronary artery disease) Essential (primary) hypertension Hyperlipidemia Non-rheumatic mitral regurgitation Parkinsons disease CHI (closed head injury) Closed hip fracture Fall History of Parkinson's disease Chief Complaint 6 M FU E-ORDER FALL, L HIP FRACTURE FALL, L HIP FRACTURE FALL, L HIP FRACTURE FALL, L HIP FRACTURE FALL, L HIP FRACTURE FALL, L HIP FRACTURE Reason for Visit CAD (coronary artery disease) Essential (primary) hypertension Hyperlipidemia Non-rheumatic mitral regurgitation Parkinsons disease CHI (closed head injury) Closed hip fracture Fall History of Parkinson's disease Chief Complaint E-ORDER FALL, L HIP FRACTURE FALL, L HIP FRACTURE FALL, L HIP FRACTURE FALL, L HIP FRACTURE FALL, L HIP FRACTURE FALL, L HIP FRACTURE fall, headache Reason for Visit Closed hip fracture History of Parkinson's disease Chief Complaint Admit Date 6 M FU March 16, 2024 8 :48am NAUSEA June 03, 2024 12:48pm Reason for Visit Admit Date Argyria March 16, 2024 8 :48am CAD (coronary artery disease) March 162023 8:48am Essential (primary) hypertension Decembe 2023 8:48am Hyperlipidemia March 16, 2024 8 :48am Non-rheumatic mitral regurgitation Decem 2023 8:48am Parkinsons disease March 16, 2024 8 :48am Chief Complaint Admit Date NAUSEA June 03, 2024 12:48pm 6 M FU September 27, 2024 10:3 7am Reason for Visit Admit Date Argyria September 27, 2024 10:3 7am CAD (coronary artery disease) September 27, 2024 10:37am Essential (primary) hypertension September 272024 10:37am Hyperlipidemia September 27, 2024 10:3 7am Non-rheumatic mitral regurgitation September 27, 2024 10:37am Parkinsons disease September 27, 2024 10:3 7am Reason for Referral Specialty Diagnoses / Procedures Referred By Contac t Referred To Contact Diagnoses Parkinson's disease (HCC) Procedures PROVIDER ORDERED FOLLOW UP OFFICE/OUTPATIENT [facility] 60-74 MINUTES Linden Flynn MD [address] [place] [address] Referral ID Status Reason Start Date Expiration Date Visits Requested Visits Authorized [id number] Pending Review PCP Requested Referral 10/09/2022 01/07/2023 1 1 Specialty Diagnoses / Procedures Referred By Contac t Referred To Contact [facility] Diagnoses Parkinson's disease (HCC) Procedures CONSULT TO CD MIXER OCCUPATIONAL THERAPY EVAL HIGH COMPLEX 60 MINS Linden Flynn MD [address] [place] [address] [facility] [place] [address] Referral ID Status Reason Start Date Expiration Date Visits Requested Visits Authorized [id number] Pending Review Auto-Generat ed Referral 10/09/2022 10/09/2023 1 1 Specialty Diagnoses / Procedures Referred By Contac t Referred To Contact [facility] Diagnoses Parkinson's disease (HCC) Procedures CONSULT TO PHYSICAL THERAPY PHYSICAL THERAPY EVALUATION HIGH COMPLEX 45 MINS Linden Flynn MD [address] [phone] [facility] [place] [address] Referral ID Status Reason Start Date Expiration Date Visits Requested Visits Authorized [id number] Pending Review Auto-Generat ed Referral 10/09/2022 10/09/2023 1 1 Specialty Diagnoses / Procedures Referred By Contac t Referred To Contact MR IMAGING Diagnoses Spinal stenosis of cervical region Procedures MRI CERVICAL SPINE WO IVCON MRI SPINAL CANAL CERVICAL W/O CONTRAST Em Walker, SLITTER OPERATOR.CEMENTER MACHINE [address] [phone] [facility] [place] [address] Referral ID Status Reason Start Date Expiration Date Visits Requested Visits Authorized [id number] Authorized Auto-Generat ed Referral 07/06/2023 08/04/2024 1 1 Referral ID Status Reason Start Date Expiration Date V isits Requested Visits Authorized [id number] Closed Auto-Generate d Referral 07/06/2023 08/04/2024 1 1 Specialty Diagnoses / Procedures Referred By Contac t Referred To Contact [facility] [place] Diagnoses Protrusion of cervical intervertebral disc Procedures [facility] TO [facility] OFFICE/OUTPATIENT [facility] 60 MINUTES Em Flynn, SLITTER OPERATOR.CEMENTER MACHINE [address] [place] [phone] Referral ID Status Reason Start Date Expiration Date Visits Requested Visits Authorized [id number] Authorized PCP Requested Referral 08/03/2023 08/02/2024 1 1 Specialty Diagnoses / Procedures Referred By Contac t Referred To Contact Orthopedics Diagnoses Acute pain of left shoulder Pain in left elbow Procedures CONSULT TO ORTHOPAEDICS OFFICE/OUTPATIENT [facility] 60 MINUTES Marie Ramirez PA-C [address] [phone] Referral ID Status Reason Start Date Expiration Date Visits Requested Visits Authorized [id number] Authorized PCP Requested Referral 08/27/2023 08/26/2024 1 1 Specialty Diagnoses / Procedures Referred By Contac t Referred To Contact [facility] Diagnoses Protrusion of cervical intervertebral disc Acute pain of left shoulder Pain in left elbow Procedures CONSULT TO PHYSICAL THERAPY PHYSICAL THERAPY EVALUATION HIGH COMPLEX 45 MINS Marie Ramirez PA-C [address] [phone] [facility] [place] [address] [place] [address] Referral ID Status Reason Start Date Expiration Date Visits Requested Visits Authorized [id number] Pending Review Auto-Generat ed Referral 08/27/2023 08/26/2024 1 1 Specialty Diagnoses / Procedures Referred By Contac t Referred To Contact Diagnoses Parkinson's disease without dyskinesia or fluctuating manifestations (HCC) Procedures PROVIDER ORDERED FOLLOW UP OFFICE/OUTPATIENT [facility] 60 MINUTES Em Flynn, SLITTER OPERATOR.CEMENTER MACHINE [address] [address] Referral ID Status Reason Start Date Expiration Date Visits Requested Visits Authorized [id number] Authorized PCP Requested Referral 12/30/2023 09/28/2024 1 1 Specialty Diagnoses / Procedures Referred By Contac t Referred To Contact [facility] Diagnoses Parkinson's disease without dyskinesia or fluctuating manifestations (HCC) Procedures CONSULT TO PHYSICAL THERAPY PHYSICAL THERAPY EVALUATION HIGH COMPLEX 45 MINS Em Flynn, SLITTER OPERATOR.CEMENTER MACHINE [address] [phone] [facility] [place] [address] [place] [address] Referral ID Status Reason Start Date Expiration Date Visits Requested Visits Authorized [id number] Pending Review Auto-Generat ed Referral 09/29/2023 09/28/2024 1 1 Specialty Diagnoses / Procedures Referred By Contac t Referred To Contact [facility] Diagnoses Acute pain of left shoulder Procedures CONSULT TO PHYSICAL THERAPY PHYSICAL THERAPY EVALUATION HIGH COMPLEX 45 MINS Claudia Manuel PA-C [address] [place] [address] [facility] [address] [address] Referral ID Status Reason Start Date Expiration Date Visits Requested Visits Authorized [id number] Pending Review Auto-Generat ed Referral 10/02/2023 10/01/2024 1 1 Referral ID Status Reason Start Date Expiration Date Visits Requested Visits Authorized [id number] Authorized PCP Requested Referral 12/30/2024 1 1 Specialty Diagnoses / Procedures Referred By Contac t Referred To Contact [facility] Diagnoses Parkinson's disease without dyskinesia or fluctuating manifestations (HCC) Dysphagia, unspecified type Procedures CONSULT TO SPEECH THERAPY OFFICE/OUTPATIENT [facility] 60 MINUTES Em Flynn, SLITTER OPERATOR.CEMENTER MACHINE [address] [address] [facility] [place] [address] [place] [address] Referral ID Status Reason Start Date Expiration Date Visits Requested Visits Authorized [id number] Pending Review Auto-Generat ed Referral 12/31/2023 12/30/2024 1 1 Advance Directives No Advanced Directives Records Found Advance Directive Response Recorded Date/ Time Living Will No February 01 1:49pm Power of [employer] No February 01, 2023 1:49pm Advance Directive Response Recorded Date/ Time Living Will No February 01 4:06pm Power of [employer] No February 01, 2023 4:06pm Advance Directive Response Recorded Date/ Time Name of Medical Power of [employer] Palmira, daughter , CHRISTY May 01, 2023 1:29pm Living Will No May 01 1:29pm Power of [employer] Yes May 01, 2023 1:29pm Summary Purpose Family History No Family History Records Found Additional Source Comments Goals (unrecognized section and content) Goals may be documented in a n alternate sectionGoals may be documented in an alternate sectionGoals may be documented in an alternate sectionGoals may be documented in an alternate section Source Comments (unrecognize d section and content) In the event this informatio n is protected by the Federal Confidentiality of Alcohol and Drug Abuse Patient Records regulations: The Federal rules restrict any use of the information to criminally investigate or prosecute any alcohol or drug abuse patient.[facility] the event this information is protected by the Federal Confidentiality of Alcohol and Drug Abuse Patient Records regulations: The Federal rules restrict any use of the information to criminally investigate or prosecute any alcohol or drug abuse patient.[facility] SystemIn the event this information is protected by the Federal Confidentiality of Alcohol and Drug Abuse Patient Records regulations: The Federal rules restrict any use of the information to criminally investigate or prosecute any alcohol or drug abuse patient.[facility] SystemIn the event this information is protected by the Federal Confidentiality of Alcohol and Drug Abuse Patient Records regulations: The Federal rules restrict any use of the information to criminally investigate or prosecute any alcohol or drug abuse patient.[facility] SystemIn the event this information is protected by the Federal Confidentiality of Alcohol and Drug Abuse Patient Records regulations: The Federal rules restrict any use of the information to criminally investigate or prosecute any alcohol or drug abuse patient.[facility] System[facility] the event this information is protected by the Federal Confidentiality of Alcohol and Drug Abuse Patient Records regulations: The Federal rules restrict any use of the information to criminally investigate or prosecute any alcohol or drug abuse patient.[facility] SystemIn the event this information is protected by the Federal Confidentiality of Alcohol and Drug Abuse Patient Records regulations: The Federal rules restrict any use of the information to criminally investigate or prosecute any alcohol or drug abuse patient.[facility] System[facility] the event this information is protected by the Federal Confidentiality of Alcohol and Drug Abuse Patient Records regulations: The Federal rules restrict any use of the information to criminally investigate or prosecute any alcohol or drug abuse patient.[facility] System[facility] the event this information is protected by the Federal Confidentiality of Alcohol and Drug Abuse Patient Records regulations: The Federal rules restrict any use of the information to criminally investigate or prosecute any alcohol or drug abuse patient.[facility] System[facility] the event this information is protected by the Federal Confidentiality of Alcohol and Drug Abuse Patient Records regulations: The Federal rules restrict any use of the information to criminally investigate or prosecute any alcohol or drug abuse patient.[facility] System[facility] the event this information is protected by the Federal Confidentiality of Alcohol and Drug Abuse Patient Records regulations: The Federal rules restrict any use of the information to criminally investigate or prosecute any alcohol or drug abuse patient.[facility] System[facility] the event this information is protected by the Federal Confidentiality of Alcohol and Drug Abuse Patient Records regulations: The Federal rules restrict any use of the information to criminally investigate or prosecute any alcohol or drug abuse patient.[facility] System[facility] the event this information is protected by the Federal Confidentiality of Alcohol and Drug Abuse Patient Records regulations: The Federal rules restrict any use of the information to criminally investigate or prosecute any alcohol or drug abuse patient.[facility] SystemIn the event this information is protected by the Federal Confidentiality of Alcohol and Drug Abuse Patient Records regulations: The Federal rules restrict any use of the information to criminally investigate or prosecute any alcohol or drug abuse patient.[facility] SystemIn the event this information is protected by the Federal Confidentiality of Alcohol and Drug Abuse Patient Records regulations: The Federal rules restrict any use of the information to criminally investigate or prosecute any alcohol or drug abuse patient.[facility] SystemIn the event this information is protected by the Federal Confidentiality of Alcohol and Drug Abuse Patient Records regulations: The Federal rules restrict any use of the information to criminally investigate or prosecute any alcohol or drug abuse patient.[facility] SystemIn the event this information is protected by the Federal Confidentiality of Alcohol and Drug Abuse Patient Records regulations: The Federal rules restrict any use of the information to criminally investigate or prosecute any alcohol or drug abuse patient.[facility] SystemIn the event this information is protected by the Federal Confidentiality of Alcohol and Drug Abuse Patient Records regulations: The Federal rules restrict any use of the information to criminally investigate or prosecute any alcohol or drug abuse patient.[facility] SystemIn the event this information is protected by the Federal Confidentiality of Alcohol and Drug Abuse Patient Records regulations: The Federal rules restrict any use of the information to criminally investigate or prosecute any alcohol or drug abuse patient.[facility] SystemIn the event this information is protected by the Federal Confidentiality of Alcohol and Drug Abuse Patient Records regulations: The Federal rules restrict any use of the information to criminally investigate or prosecute any alcohol or drug abuse patient.[facility] SystemIn the event this information is protected by the Federal Confidentiality of Alcohol and Drug Abuse Patient Records regulations: The Federal rules restrict any use of the information to criminally investigate or prosecute any alcohol or drug abuse patient.[facility] SystemIn the event this information is protected by the Federal Confidentiality of Alcohol and Drug Abuse Patient Records regulations: The Federal rules restrict any use of the information to criminally investigate or prosecute any alcohol or drug abuse patient.[facility] Reason for Visit (unrecogniz ed section and content) Reason Comments New Patient Evaluation Reason Comments Parkinson's Disease Specialty Diagnoses / Procedures Referred By Contac t Referred To Contact Diagnoses Parkinson's disease Procedures PROVIDER ORDERED FOLLOW UP OFFICE/OUTPATIENT [facility] 60-74 MINUTES Linden Flynn MD [address] [place] [address] Referral ID Status Reason Start Date Expiration Date V isits Requested Visits Authorized [id number] Closed PCP Requested Referral 10/09/2022 01/07/2023 1 1 Reason Comments Follow Up Pt wants to discuss left arm pain and left groin pain Parkinson's Disease Specialty Diagnoses / Procedures Referred By Contac t Referred To Contact MR IMAGING Diagnoses Spinal stenosis of cervical region Procedures MRI CERVICAL SPINE WO IVCON MRI SPINAL CANAL CERVICAL W/O CONTRAST MATRL Em Flynn, SLITTER OPERATOR.CEMENTER MACHINE [address] [place] [phone] [facility] [place] [address] Referral ID Status Reason Start Date Expiration Date V isits Requested Visits Authorized [id number] Closed Auto-Generate d Referral 07/06/2023 08/04/2024 1 1 Reason Comments Results Reason Comments Neck Pain Neck pain Left arm p ain. Would like to discuss MRI and X-ray Results. Specialty Diagnoses / Procedures Referred By Contac t Referred To Contact [facility] [place] Diagnoses Protrusion of cervical intervertebral disc Procedures CONSULT TO [facility] OFFICE/OUTPATIENT [facility] 60 MINUTES Em Flynn, SLITTER OPERATOR.CEMENTER MACHINE [address] [place] [phone] Referral ID Status Reason Start Date Expiration Date V isits Requested Visits Authorized [id number] Closed PCP Requested Referral 08/03/2023 08/02/2024 1 1 Reason Comments Parkinson's Disease Follow Up Reason Comments New Pain Specialty Diagnoses / Procedures Referred By Contac t Referred To Contact Orthopedics Diagnoses Acute pain of left shoulder Pain in left elbow Procedures CONSULT TO ORTHOPAEDICS OFFICE/OUTPATIENT [facility] 60 MINUTES Marie Ramirez PA-C [address] [place] [address] Referral ID Status Reason Start Date Expiration Date V isits Requested Visits Authorized [id number] Closed PCP Requested Referral 08/27/2023 08/26/2024 1 1 Reason Comments Patient Update 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 Reason Comments Parkinson's Disease Specialty Diagnoses / Procedures Referred By Contac t Referred To Contact Diagnoses Parkinson's disease without dyskinesia or fluctuating manifestations (HCC) Procedures PROVIDER ORDERED FOLLOW UP OFFICE/OUTPATIENT [facility] 60 MINUTES Em Flynn, KEITH [address] [place] [phone] Referral ID Status Reason Start Date Expiration Date V isits Requested Visits Authorized [id number] Closed PCP Requested Referral 12/30/2023 09/28/2024 1 1 Reason Comments Parkinson's Disease Specialty Diagnoses / Procedures Referred By Contac t Referred To Contact Diagnoses Parkinson's disease without dyskinesia or fluctuating manifestations (HCC) Procedures PROVIDER ORDERED FOLLOW UP OFFICE/OUTPATIENT [facility] 60 MINUTES Em Flynn, CEMENTER MACHINE [address] [place] [phone] Phone: tel: fax: Referral ID Status Reason Start Date Expiration Date V isits Requested Visits Authorized [id number] Closed PCP Requested Referral 03/31/2024 12/30/2024 1 1 Reason Comments Neuropathy Specialty Diagnoses / Procedures Referred By Contac t Referred To Contact Neurology Diagnoses Numbness and tingling of both feet Numbness and tingling in both hands Procedures CONSULT TO NEUROLOGY OFFICE/OUTPATIENT [facility] 60 MINUTES Em Flynn, CEMENTER MACHINE [address] [address] [place] [address] Phone: tel: fax: Referral ID Status Reason Start Date Expiration Date V isits Requested Visits Authorized [id number] Closed PCP Requested Referral 06/28/2024 06/28/2025 1 1 Care Teams (unrecognized sec tion and content) Team Status: Active Member Role Status Dates Alexandra Arreguin RETAIL SPECIAL EVENT ASSOCIATE, RETAIL SPECIAL EVENT ASSOCIATE-C Primary Care Provider Active Team Status: Active Member Role Status Dates Alexandra Arreguin RETAIL SPECIAL EVENT ASSOCIATE, RETAIL SPECIAL EVENT ASSOCIATE-C Primary Care Provider Active Dr. Law Gold , DO Emergency Provider Active Dr. Jasmin Steele MD Admit Provider, Other Provider Active Dr. Davian Grier , DO Other Provider Active Dr. Darline Lundy MD Attending Provider, Other Provid er Active Team Status: Active Member Role Status Dates Alexandra Arreguin RETAIL SPECIAL EVENT ASSOCIATE, RETAIL SPECIAL EVENT ASSOCIATE-C Primary Care Provider Active Dr. Law Gold , DO Emergency Provider Active Dr. Jasmin Steele MD Admit Provider, Other Provider Active Dr. Darline Lundy MD Other Provider Active Dr. Davian Grier , DO Other Provider Active Dr. Jaylon Boone MD Attending Provider Active Team Status: Active Member Role Status Dates Alexandra Arreguin RETAIL SPECIAL EVENT ASSOCIATE, RETAIL SPECIAL EVENT ASSOCIATE-C Primary Care Provider Active Dr. Law Gold DO Emergency Provider Active Dr. Jasmin Steele MD Admit Provider, Other Provider Active Dr. Darline Lundy MD Attending Provider, Other Provid er Active Dr. Davian Grier , DO Other Provider Active Team Status: Inactive Member Role Status Dates Alexandra Arreguin RETAIL SPECIAL EVENT ASSOCIATE, RETAIL SPECIAL EVENT ASSOCIATE-C Primary Care Provider Active Dr. Danielle Vernon MD Attending Provider, Referring Pr ovider Active Team Status: Inactive Member Role Status Dates Alexandra Arreguin RETAIL SPECIAL EVENT ASSOCIATE, RETAIL SPECIAL EVENT ASSOCIATE-C Primary Care Provider Active Dr. Law Gold DO Emergency Provider Active Dr. Jasmin Steele MD Admit Provider, Other Provider Active Dr. Darline Lundy MD Attending Provider Active Dr. Davian Grier , Other Provider Active Team Status: Inactive Member Role Status Dates Alexandra Arreguin RETAIL SPECIAL EVENT ASSOCIATE, RETAIL SPECIAL EVENT ASSOCIATE-C Primary Care Provider Active Dr. Law Gold DO Emergency Provider Active Cut Pressman Relationship Specialty Start Date End Date Alexandra Arreguin SLITTER OPERATOR.CEMENTER MACHINE [address] [facility] [address] [place] [address] PCP - General Family Medicine 01/20/23 Team Status: Inactive Member Role Status Dates Alexandra Arreguin RETAIL SPECIAL EVENT ASSOCIATE, RETAIL SPECIAL EVENT ASSOCIATE-C Primary Care Provider, Referr ing Provider Active Dr. Danielle Vernon MD Attending Provider Active Team Status: Active Member Role Status Dates Alexandra Arreguin RETAIL SPECIAL EVENT ASSOCIATE, RETAIL SPECIAL EVENT ASSOCIATE-C Primary Care Provider Active Dr. Law Gold , Emergency Provider Active Dr. Jasmin Steele MD Admit Provider, Attending Prov ider Active Cut Pressman Relationship Specialty Start Date End Date Alexandra Arreguin, SLITTER OPERATOR.CEMENTER MACHINE [address] [place] [address] PCP - General Family Medicine 01/20/23 Cut Pressman Relationship Specialty Start Date End Date Alexandra Arreguin, SLITTER OPERATOR.CEMENTER MACHINE [address] [place], [place] [id number] PCP - General Family Medicine 01/20/23 Cut Pressman Relationship Specialty Start Date End Date Alexandra Arreguin, SLITTER OPERATOR.CEMENTER MACHINE [address] [place] [address] PCP - General Family Medicine 01/20/23 Cut Pressman Relationship Specialty Start Date End Date Alexandra Arreguin, SLITTER OPERATOR.CEMENTER MACHINE [address] [place] [address] PCP - General Family Medicine 01/20/23 Cut Pressman Relationship Specialty Start Date End Date Alexandra Arreguin, SLITTER OPERATOR.CEMENTER MACHINE [address] [place], [place] [phone] PCP - General Family Medicine 01/20/23 Cut Pressman Relationship Specialty Start Date End Date Alexandra Arreguin, SLITTER OPERATOR.CEMENTER MACHINE [address] [place] [address] PCP - General Family Medicine 01/20/23 Cut Pressman Relationship Specialty Start Date End Date Alexandra Arreguin, SLITTER OPERATOR.CEMENTER MACHINE [address] [place] [address] PCP - General Family Medicine 01/20/23 Cut Pressman Relationship Specialty Start Date End Date Alexandra Arreguin, SLITTER OPERATOR.CEMENTER MACHINE [address] [place] [address] PCP - General Family Medicine 01/20/23 Cut Pressman Relationship Specialty Start Date End Date Alexandra Arreguin, SLITTER OPERATOR.CEMENTER MACHINE [address] [place] [address] PCP - General Family Medicine 01/20/23 Cut Pressman Relationship Specialty Start Date End Date Alexandra Arreguin, SLITTER OPERATOR.CEMENTER MACHINE [address] [place] [address] PCP - General Family Medicine 01/20/23 Cut Pressman Relationship Specialty Start Date End Date Alexandra Arreguin, SLITTER OPERATOR.CEMENTER MACHINE [address] [place] [address] PCP - General Family Medicine 01/20/23 Cut Pressman Relationship Specialty Start Date End Date Alexandra Arreguin, SLITTER OPERATOR.CEMENTER MACHINE [address] [place] [address] PCP - General Family Medicine 01/20/23 Cut Pressman Relationship Specialty Start Date End Date Alexandra Arreguin, SLITTER OPERATOR.CEMENTER MACHINE [address] [place] [address] PCP - General Family Medicine 01/20/23 Cut Pressman Relationship Specialty Start Date End Date Alexandra Arreguin, SLITTER OPERATOR.CEMENTER MACHINE [address] [place], [place] [phone] PCP - General Family Medicine 01/20/23 Cut Pressman Relationship Specialty Start Date End Date Alexandra Arreguin, SLITTER OPERATOR.CEMENTER MACHINE [address] [place], [place] [phone] PCP - General Family Medicine 01/20/23 Cut Pressman Relationship Specialty Start Date End Date Alexandra Arreguin SLITTER OPERATOR.CEMENTER MACHINE [address] [place] [address] PCP - General Family Medicine 01/20/23 Team Status: Active Member Role Status Dates Tressa HALL Primary Care Provider Active Team Status: Inactive Member Role Status Dates Alexandra Arreguin RETAIL SPECIAL EVENT ASSOCIATE, RETAIL SPECIAL EVENT ASSOCIATE-C Primary Care Provider Active Start: March 16, 2024 End: March 16, 2024 Alexandra Arreguin NP, RETAIL SPECIAL EVENT ASSOCIATE-C Referring Provider Active Start: March 16, 2024 End: March 16, 2024 Dr. Danielle Vernon MD Attending Provider Active Start: March 16, 2024 End: March 16, 2024 Team Status: Inactive Member Role Status Dates Didi Lujan NP, RETAIL SPECIAL EVENT ASSOCIATE-C Attending Provider Active Start: June 03, 2024 End: June 03, 2024 Didi Lujan NP, RETAIL SPECIAL EVENT ASSOCIATE-C Referring Provider Active Start: June 03, 2024 End: June 03, 2024 Tressa HALL Primary Care Provider Active Start: June 03, 2024 End: June 03, 2024 Cut Pressman Relationship Specialty Start Date End Date Alexandra Arreguin, SLITTER OPERATOR.CEMENTER MACHINE [address] [place], [place] [phone] PCP - General Family Medicine 01/20/23 Team Status: Inactive Member Role Status Dates Tressa HALL Primary Care Provider Active Start: September 27, 2024 End: September 27, 2024 Tressa HALL Referring Provider Active Start: September 27, 2024 End: September 27, 2024 Dr. Danielle Vernon MD Attending Provider Active Start: September 27, 2024 End: September 27, 2024 INFORMATION SOURCE (unrecogn ized section and content) DATE CREATED AUTHOR 07/30/2023 [facility] DATE CREATED AUTHOR AUTHOR'S ORGANIZ ATION 10/02/2023 [facility] DATE CREATED AUTHOR AUTHOR'S ORGANIZ ATION 08/17/2024 [facility] DATE CREATED AUTHOR AUTHOR'S ORGANIZ ATION 09/29/2024 [facility] FOR RECORDS PERTAINING TO PATIENTS WHO ARE [...] BE BASED ON THE PRIMARY CLINICAL RECORDS. [facility]. provides no warranty or guarantee of the accuracy or completeness of information in this document.
--- NOTE | 2024-11-07 14:27 | STRESSREP_ITS ---
Stress Test Report Date: 11/03/2024 Procedure: Pharmacologic stress nuclear imaging study Indications: Coronary artery disease Consent: Per the patient Procedure: The patient underwent pharmacologic (Regadenoson 0.4mg ) evaluation with a peak heart rate of 96 beats per minute (70%predicted maximal heart rate) and a peak blood pressure of 144/78 mmHg. The baseline ECG demonstrated sinus rhythm. The peak pharmacologic ECG showed no ischemic changes. There were no cardiac dysrhythmias pretest, during pharmacologic infusion, or recovery. There was no complaint of chest discomfort during pharmacologic infusion or recovery. The patient was injected with 11.7 millicuries of technetium 99m Cardiolite and subsequently rest SPECT Cardiolite nuclear imaging was obtained in the horizontal long, vertical long, and short axis views. The patient underwent pharmacologic (Regadenoson) evaluation. The patient was injected with 33.5 millicuries of technetium 99m Cardiolite and subsequently stress SPECT Cardiolite nuclear imaging was obtained in the horizontal long, vertical long, and short axis views. No gated images could be obtained. The examination was stopped secondary to completion of protocol. Rest and stress SPECT Cardiolite nuclear imaging status post realignment, normalization, and attenuation correction demonstrate no fixed or reversible perfusion defects. Impression: 1. Pharmacologic (Regadenoson) evaluation 2. Peak pharmacologic ECG with no ischemic changes. 3. There were no cardiac dysrhythmias pretest, during pharmacologic infusion, or recovery. 5. Rest and stress SPECT Cardiolite nuclear imaging demonstrate relative uniform tracer uptake and myocardial perfusion appearing within normal limits. 6. No gated images could be obtained. This note was generated with [employer] software. It may contain incorrect words, spelling, and punctuation that were not noted in checking the note before signing.
== END | disposition home or self-care (01) ==
LOC: CVS 07:10
PROVIDERS: PCP Internal Medicine Geriatric Medicine; Referring Provider Internal Medicine Cardiovascular Disease; Visit Provider Internal Medicine Cardiovascular Disease
DX: I25.10 Atherosclerotic heart disease of native coronary artery without angina pectoris (principal); E78.5 Hyperlipidemia, unspecified; Z95.5 Presence of coronary angioplasty implant and graft
CPT/HCPCS: 78452; 93017; 93306; A9500; A4216; J2785

== ENCOUNTER 2025-01-20 01:09 | Inpatient (IN) | payer MEDICARE, MEDICAID, SELFPAY ==
[2025-01-20] VITALS (16 sets, daily range): BP systolic 132–153; BP diastolic 51–97; PULSE 68–103; RESP 16–18; TEMP 36.2–37.2; O2SAT 89–100; BMI 30.2; BMI 30.4
--- NOTE | 2025-01-20 | HIP_PTH ---
PATIENT: DAGOBERTO COHN LOC: MS3 U#:[id number] AGE/SX: 84/F [place] [facility] [place]: Dr. Davian Kelly MD : 1940 BED: 1 DIS: 01/25/2025 SPEC #: [id number] RECD: 01/23/25 08:30 STATUS: CAROL TIRADO #: [id number] GIN: 01/20/25 00:[address]: Braulio Tijerina DEPT: SURGICAL PATHOLOGY RECD BY: Edmond Dawson ENTERED: 01/23/25 08:30 SP TYPE: TOTAL HIP OTHR DR: DO Dr. Davian Rolon MD Dr. Paige Pierce, MD Dr. Steven Widmer, MD Shobha Khandelwal Tissues: Hip, NOS Procedures: Decalcification bone/plaque Surgery Specimen Level IV Comments: @ Ordering doctor for DEC edited from to @ by WILLIAM at 01/23/25 0939 @ Ordering doctor for SUIV edited from to @ by WILLIAM at 01/23/25 0939 @ Submitting doctor edited from to @ by WILLIAM at 01/23/25 0939 HEADER OPERATION: Hemiarthroplasty, hip PRE-OP DIAGNOSIS: Subcapital fracture of right femur TISSUE SUBMITTED: A- Right hip bone MICROSCOPIC DIAGNOSIS A. 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 * Trilineage hematopoiesis. * Focal acute hemorrhage suggestive of fracture. MICROSCOPIC DESCRIPTION Slides are reviewed. GROSS DESCRIPTION A. Received in formalin labeled with the patient's name and date of . Designated as right hip bone is a 4.5 x 4.1 x 3.9 cm slightly irregular, ovoid femoral head with attached femoral neck, 1.2 cm in length by 3.9 cm in diameter. The resection margin is congested. The articular cartilage is tapia-red and somewhat granular; there is a portion of the detached cartilage measuring 3.0 x 1.8 cm. Definitive eburnation is not identified however, there is focal mild peripheral osteophyte formation. Sectioning reveals tapia-yellow to congested medullary bone. No definitive lesions are identified. Fbi Profiler sections are submitted in 2 cassettes, following decalcification, as follows: A1: Articular cartilage, including area of detached cartilageA2: Congested medullary bone, area of detached cartilage SC 01/23/2025 CPT:39105,93123
--- NOTE | 2025-01-20 01:12 | PCM.HP.STD ---
[facility] - General General Date of Admission: 01/20/25 Date of Service: 01/20/25 Chief Complaint: Fall with Right Hip Fracture. HPI Narrative DAGOBERTO COHN, is a 84 F with a past medical history of essential hypertension; currently not on treatment, hyperlipidemia; on atorvastatin, former tobacco abuse; with subsequent COPD and pulmonary hypertension, CAD; with RCA stent at [facility] in [place] (2009) and subsequent inferior wall ST elevation NE s/p RCA stent with cardiogenic shock and cardiac arrest x 3 (2021) on baby aspirin daily, history of nonrheumatic mitral/tricuspid valve insufficiency, Parkinson's disease; on carbidopa-levodopa 3 times daily, fibromyalgia, depression; on duloxetine, history of argyria (bluish skin discoloration); attributed to taking colloidal silver for protracted period of time, OAB; on mirabegron, chronic constipation; on polyethylene glycol daily plus simethicone twice daily as needed, history of gout; currently not on treatment, osteoporosis; on alendronate weekly, OA; on celecoxib plus tramadol 3 times daily as needed and recently diagnosed COVID-19 who was transferred from [facility] after she was diagnosed with an impacted Right femoral neck fracture in the setting of already being on nirmatrelvir-ritonavir. According to the records the patient was at her ECF when she sustained a mechanical fall onto her Right side with subsequent inability to ambulate. She was noted to have a scalp hematoma with a metacarpal fracture of her Right hand but she denied LOC with her fall. Dr. North of [facility] spoke to Dr. Tijerina of the orthopedic service here who recommended admission to the hospitalist service with formal consultation pending in the a.m. for ORIF. She was then admitted to the general medical floor for ongoing care for stay that is expected to extend beyond 2 midnights. [facility] Medical History Nocturia Urge incontinence Overactive bladder Former tobacco use Depression Hypertension Fall CHI (closed head injury) Presence of stent in coronary artery (~12/22/21) Atherosclerotic heart disease of [place] coronary artery without angina pectoris ST elevation myocardial infarction (STEMI) of inferior wall (~12/22/21) Essential (primary) hypertension Parkinsons disease Urgency of urination Gout Cardiogenic shock Non-rheumatic mitral regurgitation Non-rheumatic tricuspid valve insufficiency Pulmonary hypertension Emphysema with chronic bronchitis Fibromyalgia Hyperlipidemia CAD (coronary artery disease) Bladder spasms Edema, lower extremity Myocardial infarction Home Medications ?Medication ?Instructions ?Recorded ?Last Taken ?Type aspirin 81 mg tablet,delayed 81 mg PO DAILY blood thinner 02/25/22 05/01/23 History release (Adult Aspirin Regimen) acetaminophen 325 mg capsule 650 mg PO Q6H PRN fever or pain 05/01/23 04/29/23 History atorvastatin 40 mg tablet 40 mg PO QHS hld 05/01/23 04/30/23 History polyethylene glycol 3350 17 17 g PO DAILY 05/01/23 05/01/23 History gram/dose oral powder (ClearLax) psyllium husk 3.4 gram/5.4 gram 1 tbsp PO DAILY 05/01/23 04/30/23 History oral powder (Stacie-Mucil) alendronate 70 mg tablet 70 mg PO QWEEK osteoporosis 09/27/24 Unknown History carbidopa 25 mg-levodopa 100 mg 2 tab PO DAILY parkinson 09/27/24 Unknown History tablet celecoxib 200 mg capsule 200 mg PO QDAY 09/27/24 Unknown History duloxetine 20 mg capsule,delayed 20 mg PO QDAY 09/27/24 Unknown History release tramadol 50 mg tablet 50 mg PO TID PRN pain 09/27/24 Unknown History guaifenesin 100 mg/5 mL oral liquid 200 mg PO Q4H PRN cough 12/28/24 Unknown History melatonin 3 mg capsule 3 mg PO HS PRN sleep 12/28/24 Unknown History simethicone 125 mg chewable tablet 125 mg PO QD-BID PRN abdominal 12/28/24 Unknown History (Mylanta Gas) distention ascorbic acid (vitamin C) 500 mg 500 mg PO DAILY supplement 01/20/25 Unknown History capsule carbidopa 25 mg-levodopa 100 mg 1.5 tab PO TID parkinson 01/20/25 Unknown History tablet (Dhivy) cholecalciferol (vitamin D3) 50 50 mcg PO DAILY supplement 01/20/25 Unknown History mcg (2,000 unit) capsule cyanocobalamin (vitamin B-12) 5,000 mcg PO DAILY supplement 01/20/25 Unknown History 5,000 mcg capsule mirabegron 50 mg tablet,extended 50 mg PO DAILY bladder 01/20/25 Unknown History release 24 hr (Myrbetriq) nirmatrelvir 300 mg (150 mg See Rx Instructions PO .COMPLEX 01/20/25 Unknown History x2)-ritonavir 100 mg tablet,dose pack (Paxlovid) Allergy/AdvReac Type Severity Reaction Status Date / Time oxycodone (From Percocet) Allergy Severe Hives Verified 01/20/25 01:40 Family History Father Heart disease Surgical History S/P appendectomy History of hysterectomy History of ankle surgery Presence of coronary angioplasty implant and graft Social History household members: friend(s) Smoking Status: Former smoker pack-years: 30 Tobacco: How many years used: 30 how long ago did patient quit smoking: Quit 20+ years prior. alcohol intake: current alcohol intake frequency: holidays/special occasions only substance use type: does not use caffeine: Yes Type: coffee Number of servings: 2 ROS ROS Narrative Review of Systems: Constitutional: Patient denies fever or chills. Eyes: Patient denies change in vision or discharge from eyes. ENT: Patient denies runny nose, sore throat or ear pain. Resp: Patient denies shortness of breath or cough. CV: Patient denies chest pain, palpitations or heart racing. GI: Patient admits to chronic diarrhea but she denies abdominal pain, nausea or vomiting. : Patient denies dysuria or hematuria. MSK: Patient admits to severe Right hip pain with inability to ambulate after fall as per HPI. Skin: Patient admits to scalp hematoma and fracture of the metacarpal of the Right hand after recent fall as per HPI. She denies rash. Psych: Patient denies symptoms of uncontrolled depression or anxiety. Neuro: Patient has chronic Parkinson's disease with poor balance but she denies headache, paresthesias or focal neurologic deficits. Allergy: Patient denies lip swelling, tongue swelling or urticaria. Hematology: Patient denies easy bleeding or easy bruisability. Endocrinology: Patient denies polyuria, polydipsia, polyphagia or heat/cold intolerance. 14 point ROS otherwise negative except for positives noted above in HPI. Physical Exam Const alert, oriented x3, no apparent distress and average body habitus General Appearance: cooperative HEENT normocephalic, head/scalp atraumatic and hearing grossly normal bilaterally HEENT Narrative: Mucous membranes dry. Eyes PERRL, EOMs intact bilaterally and conjunctivae normal Neck no lymphadenopathy, supple and no JVD Resp normal respiratory effort, no retractions, no use of accessory muscles and clear to auscultation bilaterally Cardio regular rate and regular rhythm GI normal to inspection, nondistended, normoactive bowel sounds, soft to palpation, non-tender and non-distended Extremity Extremity Narrative: RLE shortened admixed internally rotated with positive logroll sign. Negative signs of neurovascular compromise with good pulses throughout. Skin Skin Narrative: Patient has bluish discoloration of skin but no rash. Neuro oriented x3, CN's II-XII intact bilaterally, moves all extremities and no focal motor deficits Sensorium / Orientation: awake, alert, oriented to person, oriented to place and oriented to time Speech: speech normal Psych affect normal Results Medical Records Data Attestation: I reviewed the patient's medical records Lab / Micro Data Attestation: I reviewed the patient's lab results. 01/20/25 02:05 01/20/25 02:05 Assessment & Plan Assessment/Plan (1) Closed hip fracture: QUALIFIERS: Encounter type: initial encounter Laterality: left Qualified Code(s): S72.002A - Fracture of unspecified part of neck of left femur, initial encounter for closed fracture (2) Scalp hematoma: QUALIFIERS: Encounter type: initial encounter Qualified Code(s): S00.03XA - Contusion of scalp, initial encounter (3) Metacarpal bone fracture: QUALIFIERS: Encounter type: initial encounter Metacarpal bone: unspecified metacarpal Fracture type: closed Fracture alignment: nondisplaced Metacarpal location: shaft Qualified Code(s): S62.359A - Nondisplaced fracture of shaft of unspecified metacarpal bone, initial encounter for closed fracture (4) Fall: QUALIFIERS: Encounter type: initial encounter Qualified Code(s): W19.XXXA - Unspecified fall, initial encounter (5) COVID-19: (6) History of Parkinson's disease: (7) Presence of stent in coronary artery: (8) Obesity (BMI 30.0-34.9): PLAN: Plan 1. Impacted Right intertrochanteric femoral neck fracture after Fall with Scalp Hematoma and Metacarpal Fracture of Right hand - Admit to general medical floor. Keep n.p.o. for planned ORIF in AM. Give acetaminophen as needed for vtja-sy-yzquntgo (level 1-5/10) pain or fever. Give morphine IV as needed for severe (level 6-10/10) pain. Finally, we will consult Dr. Tijerina of orthopedics to see this patient on rounds in the a.m. with help appreciated in advance. 2. Recently diagnosed COVID-19 on nirmatrelvir-ritonavir complicating #1 - Current therapy to continue with patient not acutely ill or SOB. 3. Parkinson's disease; on carbidopa-levodopa 3 times daily with poor balance compounding #1 & #2 - Continue present treatment as before. 4. CAD; with RCA stent at [facility] in [place] (2009) and subsequent inferior wall ST elevation NE s/p RCA stent with cardiogenic shock and cardiac arrest x 3 (2021) on baby aspirin daily adding to the medical complexity of #1 - #3 - Stable. Serialize troponin. 5. Obesity (class I); with BMI of 30.2 this admission adding to the burden of disease outlined from #1 - #4 - Weight loss will be recommended. Check TSH. This complicates her case and may hamper recovery. 6. Essential hypertension; currently not on treatment - Give hydralazine IV prn for systolic blood pressure > 160 mmHg. 7. Hyperlipidemia; on atorvastatin - Maintain statin. 8. Former tobacco abuse; with subsequent COPD and pulmonary hypertension - Stable with no current evidence of acute flare. 9. History of nonrheumatic mitral/tricuspid valve insufficiency - Noted with recent echocardiogram done November 07, 2024 which revealed LVEF ~65% with diastolic function indeterminant and moderately-severe (3+) tricuspid valve insufficiency with trivial mitral valve insufficiency. 10. Fibromyalgia - Stable. 11. Depression; on duloxetine - Restart this agent when patient is cleared for oral intake. 12. History of argyria (bluish skin discoloration); attributed to taking colloidal silver for protracted period of time - Stable. 13. OAB; on mirabegron - Current therapy to continue after ORIF. 14. Chronic constipation; on polyethylene glycol daily plus simethicone twice daily as needed - Maintain bowel regimen. 15. History of gout; currently not on treatment - Stable with no evidence of acute flare. 16. Osteoporosis; on alendronate weekly - Resume this agent as outpatient. 17. OA; on celecoxib plus tramadol 3 times daily as needed - We will follow pain regimen and scales outlined in #1. 18. DVT prophylaxis - SCD on LLE only preoperatively with increased risk of bleeding complications in cases of traumatic fracture. Postoperative DVT prophylaxis to be decided upon by orthopod. Total time: Approximately (but not less than) 75 minutes. Charges/Coding Visit Charges Inpatient E&M: 24742 Init Hosp L3
[2025-01-20] MEDS: 0.9% Normal Saline (1000mL) 1,000 ML 100 ML IV (01:37)
[2025-01-20 02:45] LABS: Hematocrit 34.5 % (37-47); Hemoglobin 11.1 g/dL (12.0-15.0); Immature Granulocytes Count 0.030 X10^3/uL (0.0-0.0); Mean Corp Hgb Conc 32.2 g/dL (32-36); Mean Corpuscular Volume 84.8 fL (81-99); Mean Platelet Vol. 8.8 fl (6.2-12.0); NRBC Flagged by Analyzer 0 % (0-5); Platelet Count 241 K/mm3 (150-450); RBC Distribution Width CV 13.1 % (11.6-14.6); RBC Distribution Width SD 40.1 fl (35.1-43.9); Red Blood Count 4.07 M/mm3 (4.2-5.4); White Blood Count 8.5 K/mm3 (4.4-11.0)
[2025-01-20 03:20] LABS: Troponin T High Sensitivity 27 ng/L (<=14)
[2025-01-20 03:36] LABS: Vitamin B12 1234 pg/mL (180-914)
[2025-01-20 03:48] LABS: FOLATES,SERUM (FOLIC ACID) 6.23 ng/mL (4.60-34.80)
[2025-01-20 03:49] LABS: AST(SGOT) 19 U/L (<=31); Alanine Aminotransfer ALT/SGPT < 5 U/L (<=34); Albumin, Serum 3.6 g/dL (3.4-4.8); Alkaline Phosphatase 51 U/L (35-104); Anion Gap 12 (5-15); BUN 13 mg/dL (4-19); BUN/Creat Ratio 19.9 RATIO (10-20); Calcium,Total 8.2 mg/dL (7.6-11.0); Carbon Dioxide 21.8 mmol/L (21.0-32.0); Chloride 100 mmol/L (98-108); Estimated Creatinine Clearance 50.52 ml/min (50-250); Globulin 2.7 g/dL (2.2-4.2); Glucose 98 mg/dL (70-99); Potassium 3.5 mmol/L (3.3-5.1)
[2025-01-20 04:27] LABS: Color, Urine Yellow (Yellow); Glucose, Dipstick Normal (Normal); Ketone-Dipstick 15 mg/dl (Negative); Leukocyte Esterase-Dipstick Negative /ul (Negative); Mucous, Urine 0 SEEN /hpf (<or=2+); Nitrite-Dipstick Negative (Negative); Occult Blood-Urine 10 /ul (Negative); Protein-Dipstick 15 mg/dl (Negative); Red Blood Cells-Urine 0 SEEN /hpf (0-5); Specific Gravity, Urine 1.010 (1.002-1.030); Squamous Epithelial Cells - UA 0 SEEN /hpf (5-10); Urine Bilirubin Dipstick Negative (Negative)
[2025-01-20 04:52] LABS: Troponin T High Sens 2 HR 29 ng/L (<=14)
[2025-01-20 06:46] LABS: Troponin T High Sens 4 HR 28 ng/L (<=14)
--- NOTE | 2025-01-20 08:42 | PCM.HOSP.N ---
Hospitalist Note 84y/o F with a history of coronary artery disease with RCA stent, Parkinson's disease, fibromyalgia and overactive bladder, recent COVID diagnosis, who presented [facility] ED 01/20/2025 as a transfer from [facility] after she was found to have an impacted right femoral neck fracture. Reportedly she was at F when she sustained a mechanical fall on her right side and subsequently could not please ambulate to assess for home O2 needs. Was noted to have a scalp hematoma and metacarpal fracture of right hand but denied any loss of consciousness with the fall. [facility] ED physician spoke to Dr. Tijerina with orthopedics who recommended admission to the hospital service with formal consultation for ORIF. Patient was transferred to a medical floor. # Impacted right intertrochanteric fracture of the femoral neck and metacarpal fracture right hand -After mechanical fall at ECF -Ortho consulted -Patient n.p.o. -Pain control/supportive care -PT/OT postop # Parkinson's disease - continue home Sinemet - supportive care #Hx of CAD -w/ previous chronically on aspirin and statin -Continue home medications # Elevated trop - Troponin of 27, 29, and then 28 - No chest pain, fall was mechanical, no significant elevations or concern for ongoing/active process # Recent COVID diagnosis - Supportive care -Reports symptoms started Thursday and she was diagnosed on Thursday, has no shortness of breath or cough or respiratory complaints - Patient saturating well on 2 L of nasal cannula # History of fibromyalgia - Continue Cymbalta #DVT ppx: SCDs Darline Lundy MD
[2025-01-20] MEDS: 0.9% Saline Lock 10 ML Syringe IV ×2 (09:21→18:21)
--- NOTE | 2025-01-20 12:30 | CASEMGMT ---
Social Work- SW met with pt and pt dtr Palmira. SW introduced self and role; pt agreeable to meet. Pt reports that she plans to return to [facility] at discharge. Pt reports that she wants to be full code. Pt reports that she does have directives, naming daughter Palmira as HCPOA. SW sent clinical updates to [facility] and requested a copy of HCPOA. SW remains available to follow. Plan: return to [facility] when medically ready SANCHEZ Mackenzie
--- NOTE | 2025-01-20 12:35 | NURSING ---
Getting picked up for surgery
[2025-01-20] MEDS: Lactated Ringers 1,000 ML 15 ML IV (13:06)
--- NOTE | 2025-01-20 13:42 | PCM.PRE.AN2 ---
ASA Classification* ASA Classification ASA Classification: 4 Assessment & Plan Anesthesia* Anesthesia Assessment Anesthesia Assessment: Discussed sedation and/or anesthesia options, risks, benefits, and alternatives with patient/parents/legal guardian/POA. Questions invited. The patient/parents/legal guardian/POA seems to understand and agrees to proceed with anesthesia plan. Reviewed the physical assessment, medical history, allergy history and patient home medications list prior to surgery/procedure/anesthetic and documented any changes. Performed airway and anesthesia risk assessments. Anesthesia Type Anesthesia Type: General History Source History Obtained from:: Patient and Chart Anesthesia Focused Assessment* Temperature: 98.2 F Pulse Rate: 92 Blood Pressure: 142/73 Respiratory Rate: 16 Pulse Ox: 99 Oxygen Delivery Method: Nasal Cannula Oxygen Flow Rate (L/min): 2 Airway Assessment Mouth opens: >3 cm Mallampati Score: III Teeth Condition: Dentures (Upper dentures are out.) and Missing (Patient is missing most of her molars on the bottom. Front incisors are tight.) Neck Range of motion (ROM): Limited ROM (Severe Restriction) Labs Anesthesia Preop lab: CBC WBC, (4.4-11.0) 8.5 K/mm3 Today, 02:05 RBC, (4.2-5.4) 4.07 M/mm3 L Today, 02:05 Hgb, (12.0-15.0) 11.1 g/dL L Today, 02:05 Hct, (37-47) 34.5 % L Today, 02:05 Plt Count, (150-450) 241 K/mm3 Today, 02:05 CHEMISTRY Potassium, (3.3-5.1) 3.5 mmol/L Today, 02:05 Sodium, (133-145) 134 mmol/L Today, 02:05 Phosphorus, (2.7-4.5) 2.4 mg/dL L Today, 02:05 BUN, (4-19) 13 mg/dL Today, 02:05 Creatinine, (0.70-1.20) 0.65 mg/dL L Today, 02:05 Glucose, (70-99) 98 mg/dL Today, 02:05 POC Glucose, (74-106) 99 mg/dL 02/01/23, 14:26 TSH, (0.300-4.200) 1.900 uIU/mL Today, 02:05 COAG PT, (11.7-14.9) 16.1 SECONDS H 05/01/23, 14:15 Pre-Assessment Diagnosis/Proposed Procedure Planned Operative Procedure(s): Right hip hemiarthroplasty Anesthesia History 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 When Was Last Pacemaker Check QUESTION #4 FULL TEXT: You/Your Family Experience fever (hyperthermia) with Anesthesia Last Oral Intake Last Oral intake: Last Oral Intake NPO since 00:00 01/20/25 11:58 Meds taken in AM with sips of Yes 01/20/25 11:58 water? Meds patient instructed to Carbidopa/levadopa 01/20/25 11:58 take am of surgery PONV PONV - torts law professor: PONV - torts law professor Female HX of Motion Sickness HX of N/V After Surgery Non-Smoker Duration of Surgery greater than 60 minutes Number of Risk Factors PONV Score Height & Weight Height & Weight: Anesthesia: Height & Weight Height 5 ft 1.81 in 01/20/25 11:58 Weight: 75 kg 01/20/25 11:58 Body Mass Index (BMI) 30.4 01/20/25 11:58 Respiratory Assessment Respiratory Assessment - torts law professor: Respiratory Tract Infection Hx - torts law professor Hx Respiratory Tract Infection Yes: covid 01/20/25 01:31 Any additional information?: Yes Hx Respiratory Tract Infection: Yes History of Anesthesia Respiratory Infection details: Patient started having symptoms of COVID 4 days ago. Symptoms included headache and greenish sputum. No significant shortness of breath. She broke her hip yesterday and only started wearing oxygen after being admitted to the hospital. STOP Sleep Apnea STOP Sleep Apnea - torts law professor: STOP Sleep Apnea - torts law professor Hx Hypertension Yes 01/20/25 01:18 Hx Sleep Apnea No 01/20/25 01:18 CPAP BIPAP Do you snore loudly (louder No 01/20/25 01:18 than talking or can be heard Do you often feel tired/ No 01/20/25 01:18 fatigued/ sleepy during daytime? Has anyone observed you stop No 01/20/25 01:18 breathing during sleep? STOP Results Negative 01/20/25 01:18 QUESTION #5 FULL TEXT : Do you snore loudly (louder than talking or can be heard through closed doors)? 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 - torts law professor: 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 - torts law professor Tobacco Use Smoking Status Former smoker 01/20/25 01:18 Hx Tobacco Use No 01/20/25 01:18 Years Smoking Packs Smoked per Day Smoking Cessation Date was No - quit smoking greater 01/20/25 01:18 within the last 15 years than 15 years ago Hx Smoking Cessation Date 04/13/79 01/20/25 01:18 Hx Smoking Cessation Counseling Hematologic Medial History Hematologic Hx - torts law professor: Hematologic Medical Hx - drum sander Hx of Blood Transfusion Yes 01/20/25 01:18 Hx of Transfusion in last 3 No 01/20/25 01:18 Months Date of Last Transfusion (if within last 3 months) Ever experience any problems No 01/20/25 01:18 with transfusion(s)? Specify any problems Hx of Preganancy in last 3 No 01/20/25 01:18 Months Nurse Filling Out Transfusion DREDICK 01/20/25 01:18 & Questions: Date: 01/20/25 01/20/25 01:18 Time: 01:19 01/20/25 01:18 Patient unable to answer at this time (ie. confused, unrespo /Reproduction History /Reproductive History - torts law professor: /Reproductive Hx- torts law professor Hx Now No 01/20/25 01:31 Gestational Age (in weeks): EDC: Hx Hx Para Hx Section SAB No 01/20/25 01:31 Active Medications Active Medications: Current Medications Generic Name Dose Route Start Last Admin Trade Name Freq PRN Reason Stop Dose Admin Acetaminophen 650 mg 01/20/25 01:06 Acetaminophen 650 Mg Suppository RC Q6H PRN PRN Pain 1-5/10 or Fever Aspirin 81 mg 01/21/25 08:00 Aspirin E.C. 81 Mg Tablet PO BREAKFAST MARTY Atorvastatin Calcium 40 mg 01/20/25 22:00 Atorvastatin Calcium 40 Mg Tablet PO QHS MARTY Carbidopa/Levodopa 2 tablet 01/20/25 10:00 01/20/25 10:16 Carbidopa/Levodopa 25/100 Tablet PO 2 tablet DAILY MARTY Administration Carbidopa/Levodopa 1.5 tablet 01/20/25 14:00 Carbidopa/Levodopa 25/100 Tablet PO 1400,1800,2200 MARTY Duloxetine HCl 20 mg 01/20/25 10:00 Duloxetine Hcl 20 Mg Capsule PO DAILY MARTY Hydralazine HCl 5 mg 01/20/25 01:37 Hydralazine 20 Mg/Ml Vial IV Q8H PRN PRN SBP GREATER THAN 160 Protocol Sodium Chloride 250 mls @ 15 mls/hr 01/20/25 01:13 IV .[id number] PRN Saline Flush Sodium Chloride 250 mls @ 15 mls/hr 01/20/25 01:13 IV .[id number] PRN Additional IVPB Infusion Lactated Ringer's 1,000 mls @ 15 mls/hr 01/20/25 13:00 01/20/25 13:06 IV 15 mls/hr .Q48H MARTY Administration Morphine Sulfate 2 mg 01/20/25 01:06 01/20/25 09:21 Morphine 2 Mg/Ml Syringe IV 2 mg Q4H PRN PRN Administration Pain Score 6-10 Ondansetron HCl 4 mg 01/20/25 01:06 Ondansetron 4 Mg/2 Ml Vial IV Q6H PRN PRN NAUSEA/VOMITING Polyethylene Glycol 17 gm 01/20/25 10:00 Polyethylene Glycol 3350 17 Gm Packet PO DAILY MARTY Psyllium Hydrophilic Mucilloid 1 packet 01/20/25 10:00 Psyllium 1 Packet PO DAILY MARTY Sodium Chloride 10 - 40 ml 01/20/25 01:13 01/20/25 09:21 0.9% Saline Lock 10 Ml Syringe IV 10 ml UD PRN Administration SALINE FLUSH PFSH Medical History Nocturia Urge incontinence Overactive bladder Former tobacco use Depression Hypertension Fall [facility] (closed head injury) Presence of stent in coronary artery (~12/22/21) Atherosclerotic heart disease of [place] coronary artery without angina pectoris ST elevation myocardial infarction (STEMI) of inferior wall (~12/22/21) Essential (primary) hypertension Parkinsons disease Urgency of urination Gout Cardiogenic shock Non-rheumatic mitral regurgitation Non-rheumatic tricuspid valve insufficiency Pulmonary hypertension Emphysema with chronic bronchitis Fibromyalgia Hyperlipidemia CAD (coronary artery disease) Bladder spasms Edema, lower extremity Myocardial infarction Home Medications ?Medication ?Instructions ?Recorded ?Last Taken ?Type aspirin 81 mg tablet,delayed 81 mg PO DAILY blood thinner 02/25/22 05/01/23 History release (Adult Aspirin Regimen) acetaminophen 325 mg capsule 650 mg PO Q6H PRN fever or pain 05/01/23 04/29/23 History atorvastatin 40 mg tablet 40 mg PO QHS hld 05/01/23 04/30/23 History polyethylene glycol 3350 17 17 g PO DAILY 05/01/23 05/01/23 History gram/dose oral powder (ClearLax) psyllium husk 3.4 gram/5.4 gram 1 tbsp PO DAILY 05/01/23 04/30/23 History oral powder (Stacie-Mucil) alendronate 70 mg tablet 70 mg PO QWEEK osteoporosis 09/27/24 Unknown History carbidopa 25 mg-levodopa 100 mg 2 tab PO DAILY parkinson 09/27/24 Unknown History tablet celecoxib 200 mg capsule 200 mg PO QDAY 09/27/24 Unknown History duloxetine 20 mg capsule,delayed 20 mg PO QDAY 09/27/24 Unknown History release tramadol 50 mg tablet 50 mg PO TID PRN pain 09/27/24 Unknown History guaifenesin 100 mg/5 mL oral liquid 200 mg PO Q4H PRN cough 12/28/24 Unknown History melatonin 3 mg capsule 3 mg PO HS PRN sleep 12/28/24 Unknown History simethicone 125 mg chewable tablet 125 mg PO QD-BID PRN abdominal 12/28/24 Unknown History (Mylanta Gas) distention ascorbic acid (vitamin C) 500 mg 500 mg PO DAILY supplement 01/20/25 Unknown History capsule carbidopa 25 mg-levodopa 100 mg 1.5 tab PO TID parkinson 01/20/25 Unknown History tablet (Dhivy) cholecalciferol (vitamin D3) 50 50 mcg PO DAILY supplement 01/20/25 Unknown History mcg (2,000 unit) capsule cyanocobalamin (vitamin B-12) 5,000 mcg PO DAILY supplement 01/20/25 Unknown History 5,000 mcg capsule mirabegron 50 mg tablet,extended 50 mg PO DAILY bladder 01/20/25 Unknown History release 24 hr (Myrbetriq) nirmatrelvir 300 mg (150 mg See Rx Instructions PO .COMPLEX 01/20/25 Unknown History x2)-ritonavir 100 mg tablet,dose pack (Paxlovid) Allergy/AdvReac Type Severity Reaction Status Date / Time oxycodone (From Percocet) Allergy Severe Hives Verified 01/20/25 01:40 Family History Father Heart disease Surgical History S/P appendectomy History of hysterectomy History of ankle surgery Presence of coronary angioplasty implant and graft Social History household members: friend(s) Smoking Status: Former smoker pack-years: 30 Tobacco: How many years used: 30 how long ago did patient quit smoking: Quit 20+ years prior. alcohol intake: current alcohol intake frequency: holidays/special occasions only substance use type: does not use caffeine: Yes Type: coffee Number of servings: 2 Review of Systems (Anesthesia) ROS Narrative System reviewed and no additional complaints, except as documented. Physical Exam Skin Skin Narrative: Patient has a generalized bluish-carl tinge to her skin. This is a result of taking silver to treat her fibromyalgia 20 years ago. Patient states that the fibromyalgia did improve with the silver treatments.
--- NOTE | 2025-01-20 13:42 | CHAPLAIN ---
Type of Pastoral Visit ___ Initial Visit ___ Follow-up Visit ___ On-call Visit ___ General Patient Visit ___ Spiritual Assessment ___ Family Conference ___ Bereavement ___ Rapid Response ___ Code Blue ___ Other (describe below) Pastoral Care Referral From ___ Patient ___ Family ___ Nurse ___ Physician ___ Transition Mgr ___ [place] ___ Other (describe below) Sacrament/Intervention ___ Active listening ___ Anointing ___ Baptist ___ Bereavement ___ Communion ___ Ashley exploration ___ ___ Life review ___ Prayer ___ Reconciliation ___ Sacrament of Sick ___ Supportive presence ___ Wedding ___ Other (describe below) Pastoral Comments patient is in a strict contact isolation room; attempted to make a phone call into room but there was no answer and answering service came on stating patient is not available at this time
--- NOTE | 2025-01-20 14:15 | CONS.ORTHO ---
HPI Consult Data Date of Consult: 01/20/25 HPI Narrative Reason for Consultation: Right hand pain, right hip pain HPI Narrative: DAGOBERTO COHN, is a 84 F with multiple medical comorbidities and ongoing COVID-19 with treatment that is current who presents with right hip pain. Patient is known to our practice she did have a left hip fracture with cephalomedullary nail 2 years ago with my partner. Patient notes that she lives in a [place] facility and ambulates with a walker or uses a wheelchair. She does not walk independently. She was reported to have fallen yesterday and sustained an injury to her right hand and hip. She was seen at an outside hospital and requested transfer to [place] as they did not have orthopedics. She was placed in a ulnar gutter splint for her right hand pain and right hip pain. Patient today reports 6 out of 10 pain in the right thigh and groin region worse with motion better with immobilization. Patient denies any new associated paresthesias. Patient is unable to walk at this time due to the pain. Patient denies history of blood clots. Patient denies any current treatment or active malignancies. [facility] Medical History Nocturia Urge incontinence Overactive bladder Former tobacco use Depression Hypertension Fall [facility] (closed head injury) Presence of stent in coronary artery (~12/22/21) Atherosclerotic heart disease of [place] coronary artery without angina pectoris ST elevation myocardial infarction (STEMI) of inferior wall (~12/22/21) Essential (primary) hypertension Parkinsons disease Urgency of urination Gout Cardiogenic shock Non-rheumatic mitral regurgitation Non-rheumatic tricuspid valve insufficiency Pulmonary hypertension Emphysema with chronic bronchitis Fibromyalgia Hyperlipidemia CAD (coronary artery disease) Bladder spasms Edema, lower extremity Myocardial infarction Home Medications ?Medication ?Instructions ?Recorded ?Last Taken ?Type aspirin 81 mg tablet,delayed 81 mg PO DAILY blood thinner 02/25/22 05/01/23 History release (Adult Aspirin Regimen) acetaminophen 325 mg capsule 650 mg PO Q6H PRN fever or pain 05/01/23 04/29/23 History atorvastatin 40 mg tablet 40 mg PO QHS hld 05/01/23 04/30/23 History polyethylene glycol 3350 17 17 g PO DAILY 05/01/23 05/01/23 History gram/dose oral powder (ClearLax) psyllium husk 3.4 gram/5.4 gram 1 tbsp PO DAILY 05/01/23 04/30/23 History oral powder (Stacie-Mucil) alendronate 70 mg tablet 70 mg PO QWEEK osteoporosis 09/27/24 Unknown History carbidopa 25 mg-levodopa 100 mg 2 tab PO DAILY parkinson 09/27/24 Unknown History tablet celecoxib 200 mg capsule 200 mg PO QDAY 09/27/24 Unknown History duloxetine 20 mg capsule,delayed 20 mg PO QDAY 09/27/24 Unknown History release tramadol 50 mg tablet 50 mg PO TID PRN pain 09/27/24 Unknown History guaifenesin 100 mg/5 mL oral liquid 200 mg PO Q4H PRN cough 12/28/24 Unknown History melatonin 3 mg capsule 3 mg PO HS PRN sleep 12/28/24 Unknown History simethicone 125 mg chewable tablet 125 mg PO QD-BID PRN abdominal 12/28/24 Unknown History (Mylanta Gas) distention ascorbic acid (vitamin C) 500 mg 500 mg PO DAILY supplement 01/20/25 Unknown History capsule carbidopa 25 mg-levodopa 100 mg 1.5 tab PO TID parkinson 01/20/25 Unknown History tablet (Dhivy) cholecalciferol (vitamin D3) 50 50 mcg PO DAILY supplement 01/20/25 Unknown History mcg (2,000 unit) capsule cyanocobalamin (vitamin B-12) 5,000 mcg PO DAILY supplement 01/20/25 Unknown History 5,000 mcg capsule mirabegron 50 mg tablet,extended 50 mg PO DAILY bladder 01/20/25 Unknown History release 24 hr (Myrbetriq) nirmatrelvir 300 mg (150 mg See Rx Instructions PO .COMPLEX 01/20/25 Unknown History x2)-ritonavir 100 mg tablet,dose pack (Paxlovid) Allergy/AdvReac Type Severity Reaction Status Date / Time oxycodone (From Percocet) Allergy Severe Hives Verified 01/20/25 01:40 Family History Father Heart disease Surgical History S/P appendectomy History of hysterectomy History of ankle surgery Presence of coronary angioplasty implant and graft Social History household members: friend(s) Smoking Status: Former smoker pack-years: 30 Tobacco: How many years used: 30 how long ago did patient quit smoking: Quit 20+ years prior. alcohol intake: current alcohol intake frequency: holidays/special occasions only substance use type: does not use caffeine: Yes Type: coffee Number of servings: 2 ROS ROS Narrative Outside of HPI 14 point review of systems was negative today Vital Signs Vital Signs Vital Signs: 01/20/25 01:30 01/20/25 01:40 01/20/25 02:27 Temperature 98.1 F Temperature Source Oral Pulse Rate 100 98 Pulse Strength Respiratory Rate 18 Respiratory Effort Normal Non-Labored Respiratory Depth Normal Respiratory Pattern Normal Blood Pressure 150/75 H Blood Pressure Mean 100 Blood Pressure Source Monitor Blood Pressure Position Semi-Fowlers Blood Pressure Location Left Forearm Pulse Ox 97 Oxygen Delivery Method Nasal Cannula Nasal Cannula Oxygen Flow Rate (L/min) 2 2 01/20/25 05:10 01/20/25 07:10 01/20/25 07:50 Temperature 98.4 F 98.2 F Temperature Source Oral Oral Pulse Rate 103 H 92 Pulse Strength Respiratory Rate 18 16 Respiratory Effort Respiratory Depth Respiratory Pattern Blood Pressure 143/53 H 142/73 H Blood Pressure Mean 83 96 Blood Pressure Source Monitor Blood Pressure Position Semi-Fowlers Blood Pressure Location Left Forearm Pulse Ox 99 99 Oxygen Delivery Method Nasal Cannula Nasal Cannula Nasal Cannula Oxygen Flow Rate (L/min) 2 2 2 01/20/25 09:57 01/20/25 10:00 01/20/25 10:58 Temperature 98.2 F Temperature Source Oral Pulse Rate 92 Pulse Strength Normal (2+) Respiratory Rate 16 Respiratory Effort Normal Non-Labored Respiratory Depth Respiratory Pattern Blood Pressure 142/73 H Blood Pressure Mean 96 Blood Pressure Source Monitor Blood Pressure Position Semi-Fowlers Blood Pressure Location Right Arm Pulse Ox 99 Oxygen Delivery Method Nasal Cannula Nasal Cannula Oxygen Flow Rate (L/min) 2 2 01/20/25 11:58 01/20/25 14:03 Temperature 98.2 F 98.2 F Temperature Source Oral Pulse Rate 92 92 Pulse Strength Respiratory Rate 16 16 Respiratory Effort Respiratory Depth Respiratory Pattern Blood Pressure 142/73 H 142/73 H Blood Pressure Mean 96 Blood Pressure Source Monitor Blood Pressure Position Semi-Fowlers Blood Pressure Location Right Arm Pulse Ox 99 99 Oxygen Delivery Method Nasal Cannula Nasal Cannula Oxygen Flow Rate (L/min) 2 2 Weight Weight: 165 lb 5.547 oz Body Mass Index (BMI) 30.4 Physical Exam Const alert, oriented x3 and well nourished General Appearance: cooperative HEENT normocephalic and head/scalp atraumatic Eyes PERRL Neck no JVD Resp normal respiratory effort Cardio Cardio Narrative: Regular pulse rate distal pulse GI GI Narrative: Nondistended Extremity Extremity Narrative: Right lower extremity: Skin clean, dry, and intact. Limb is shortened and externally rotated Motor is intact dorsiflexion, EHL and plantar flexion. Sensation is intact to light touch saphenous, iris,l superficial peroneal, deep peroneal and tibial distributions. Calves are soft and supple. Right hand: Hand is in an ulnar gutter splint. Tenderness palpation over the fourth metacarpal base upon palpation. Digits are warm and pink. Splint appears to fit well. Skin Skin Narrative: Skin on the right thigh is intact Neuro CN's II-XII intact bilaterally Psych affect normal Medical Records Data Attestation: I reviewed the patient's medical records Lab / Micro Data Attestation: I reviewed the patient's lab results. 01/20/25 02:05 01/20/25 02:05 Labs: Laboratory Results - last 24 hr 01/20/25 02:05: WBC 8.5, RBC 4.07 L, Hgb 11.1 L, Hct 34.5 L, MCV 84.8, MCH 27.3, MCHC 32.2, RDW Std Deviation 40.1, RDW Coeff of [place]ena 13.1, Plt Count 241, MPV 8.8, Immature Gran % (Auto) 0.400, Neut % (Auto) 81.1 H, Lymph % (Auto) 11.1 L, [place] % (Auto) 7.2, Eos % (Auto) 0.1, Baso % (Auto) 0.1, Absolute Neuts (auto) 6.9, Absolute Lymphs (auto) 0.94, Nucleated RBC % 0, Sodium 134, Potassium 3.5, Chloride 100, Carbon Dioxide 21.8, Anion Gap 12, BUN 13, Creatinine 0.65 L, Estim Creat Clear Calc 50.52, Est GFR (MDRD) Non-Af 87, BUN/Creatinine Ratio 19.9, Glucose 98, Calcium 8.2, Phosphorus 2.4 L, Total Bilirubin 0.63, AST 19, ALT < 5, Alkaline Phosphatase 51, Troponin T High Sens 27 H, Total Protein 6.3, Albumin 3.6, Globulin 2.7, Albumin/Globulin Ratio 1.4, Vitamin B12 1234 H, Serum Folate 6.23, TSH 1.900, Blood Type B POSITIVE, Antibody Screen NEGATIVE 01/20/25 04:10: Urine Color Yellow, Urine Clarity Sl. Cloudy, Urine pH 6.5, Ur Specific [place] 1.010, Urine Protein 15 H, Urine Glucose (UA) Normal, Urine Ketones 15 H, Urine Occult Blood 10 H, Urine Nitrite Negative, Urine Bilirubin Negative, Urine Urobilinogen Normal, Ur Leukocyte Esterase Negative, Urine RBC 0 SEEN, Urine WBC 0 SEEN, Ur Squamous Epith Cells 0 SEEN, Urine Bacteria 0 SEEN, Urine Mucus 0 SEEN 01/20/25 04:18: Troponin T Hi Sens 2 Hr 29 H 01/20/25 06:10: Troponin T Hi Sens 4Hr 28 H Imaging Outside right hand x-rays were reviewed patient does have a nondisplaced fracture at the base of the fourth metacarpal. Patient has osteopenic appearing bone. Patient's AP pelvis and right hip x-rays reveal a valgus displaced subcapital femoral neck fracture on the right hip. Previous left hip cephalomedullary nail with well-healed intertrochanteric fracture. Assessment & Plan Assessment/Plan (1) Subcapital fracture of right femur: PLAN: Natural history of the disease process and treatment options were discussed with the patient as well as her family member who is at bedside. Ultimately, we discussed nonoperative treatment as well as 3 available operative treatment options. I did not recommend nonoperative treatment. Did not recommend percutaneous pinning. I do not recommend total hip replacement. I did recommend a partial replacement which I felt would be the most appropriate treatment based on patient's age and medical morbidities. Risks and benefits of the procedure were discussed with patient including but not limited to blood loss, DVTs, PEs, neurovascular damage, infection, and risk of anesthesia including loss of life. This also includes dislocations, leg discrepancies intraoperative and postoperative fractures. Once patient was satisfied with our discussion she demonstrated agreement to proceed with surgery. We both agreed on the appropriate side and the right side was marked in the preoperative area. Antibiotics on-call to the operating room. Patient is NPO. Patient has received adequate clearance from surgery at this point and we will plan to proceed with surgery supplement. (2) Nondisplaced fracture of base of fourth metacarpal bone, right hand, initial encounter for closed fracture: PLAN: Natural history of the disease process and treatment options were discussed the patient. Ultimately, patient is in a appropriate ulnar gutter splint and I felt appropriate to leave her in at this time. Will proceed with nonweightbearing to the hand. Should patient will be able to bear weight with a platform on a walker through her elbow.
[2025-01-20] MEDS: Cefazolin 1 GM/5 ML Vial 2 GM IV (14:30)
[2025-01-20] MEDS: Lidocaine 1% (5 ml sdv) 5 ML Vial IV (14:31)
--- NOTE | 2025-01-20 15:10 | RAD_ITS ---
PROCEDURE: HIP MIN 2 VIEWS (PORTABLE) 01/20/2025 REASON FOR EXAM: MALLIKA HIP TECHNIQUE: Procedure Code: RADH_P Modality: DX Procedure: HIP MIN 2 VIEWS (PORTABLE) Laterality: FINDINGS: Multiple spot fluoroscopic images of right hip procedure reveal screw in the left femoral head and incompletely assessed left hip with osseous hypertrophic changes about the proximal left femur. Right hip hemiarthroplasty was performed, with uncomplicated appearance on the final view. No other abnormality. RAD/Hip Min 2 Views (Portable) IMPRESSION: Uncomplicated appearing right hip hemiarthroplasty. Left hip surgical and chronic changes. Reading Location: [facility]
[2025-01-20] MEDS: fentaNYL 100 MCG/2 ML Ampul 150 MCG IV (15:12)
[2025-01-20] MEDS: TXA 2000mg in NS 100ml (Placed in Wound) OPERA.SITE (15:28)
[2025-01-20] MEDS: JPS (Morphine 10mg/ml) OPERA.SITE (15:29)
--- NOTE | 2025-01-20 15:45 | OP.PCM_ITS ---
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 Florist Supplies Salesperson: Edyta Bhatti Tasks completed by program assistant: Opening, Closing, Implanting device and Retracting Additional preschool assistant principal?: No Type of Anesthesia: General RN Documented Start/Stop Times: Operation Date: 01/20/25 14:15 Case Time Into Pre-Op 01/20/25 12:50 Anesthesia Start 01/20/25 14:25 Into Room 01/20/25 14:25 Procedure Start 01/20/25 14:48 Procedure End 01/20/25 15:54 Anesthesia End 01/20/25 16:11 Out of Room 01/20/25 16:11 Into Recovery 01/20/25 16:15 Out of Recovery 01/20/25 17:06 Procedure Start Time: 14:48 Procedure Stop Time: 15:54 Select all DRAINS/GRAFTS/IMPLANTS that apply: Prosthetic device Prosthetic device details: See body of operative report Special Medications: 2 g Ancef, 2 g TXA's lavage and end of case Estimated Blood Loss: 350 Fluids Replaced: 600 mL crystalloid Specimen collected: Yes Description of specimen(s) removed: Femoral head fracture sent to specimen Description of surgery: Components used: 1. [place] insignia femoral stem size 4 high offset 2. [place] Unitrax cobalt-chromium 43 mm femoral head with -4 mm sleeve Procedure: On the date of procedure the patient's R hip was marked in the preoperative area. Patient was then taken back to the operating room where anesthesia assumed control of the C-spine and airway and administered anesthetic. Patient was transferred to the operating table and placed in the supine position. The hips were placed the break of the bed and a bump was placed in the sacrum. The R lower extremity was then prepped out in a sterile fashion using chlorhexidine while the surgeon scrubbed. Upon reentering the room the R lower extremity was draped in the standard orthopedic fashion and the incision was marked. A timeout was called and everyone agreed upon the side, the site, the procedure be performed, antibody given, and patient's identity. At this time incision was made through skin, subcutaneous tissue, and fat down to fascia. The fascia was then incised and the TFL was retracted laterally. A retractor was placed on the lateral border of the femoral neck. Attention was directed to the inferior portion of the approach and all crossing vessels were identified and appropriately coagulated. A retractor was then placed on the medial portion of the femoral neck. The anterior capsule was then cleared of all soft tissue and then H shaped capsulotomy was made. The retractors were then placed inside the capsule. The femoral neck was identified and a cleanup cut was made. At this time a power corkscrew was used to remove the femoral head. The femoral head was measures and a 43 mm unipolar component was selected. Soft tissue releases on the medial and lateral femoral neck were appropriately done, the leg was externally rotated and lateralized. A [place] retractor was placed medially and proximally to the greater trochanter this allowed appropriate visualization and exposure of the femoral canal. [place] was then used to remove excess lateral bone. A canal finder and entry broach were used to open the proximal canal. Once we verified we were down the femoral canal we subsequently broached up to a size 4 femur. The appropriate neck was placed in the previously selected head was trialed with a -4mm neck. Traction was pulled and the hip was reduced with internal rotation. Once it was appropriately reduced and stability was checked. There was minimal shuck, equal leg lengths and appropriate stability with hyperextension and external rotation as well as with 90? flexion and internal rotation. The trial components were then dislocated the proximal femur was again exposed and the components were removed from the wound. The final components were verified and opened. The wound was copiously irrigated out with normal saline. The acetabulum was checked for any residual debris. The final components were placed and impacted. Traction and internal rotation were again used to reduce the hip. After adequate reduction the hip remained stable with appropriate leg lengths. The wound was then copiously irrigated with normal saline once more, and hemostasis was obtained. Closure was then done using #1 Vicryl runner to close the fascia. A 2-0 Vicryl runner was used to close the subcutaneous skin. 2-0 nylon's were used for final skin closure. A Silverlon dressing was placed. Patient was awakened by anesthesia and transferred to the [facility]. Patient was then transferred to the PACU for recovery. Postoperative plan: Patient will get 24 hours postop antibiotics. Patient will get in-house physical therapy and will be weight-bear as tolerated. Patient will follow up in office in 2 weeks for a wound check and x-rays. Xarelto 10 mg daily for 2 weeks followed by aspirin 81 mg twice daily for 2 weeks. Patient has impaired mobility. Surgical Findings: Stable hip. Restored leg length Complications Complications: No Admit VTE Documentation VTE Present on Admission: No VTE Mechan Device Prophylaxis: SCD's and Thigh High BELEN Hose VTE Pharm Prophylaxis ordered?: Yes
--- NOTE | 2025-01-20 16:20 | RAD_ITS ---
PROCEDURE: HIP MIN 2 VIEWS (PORTABLE) 01/20/2025 REASON FOR EXAM: POST OP TECHNIQUE: Procedure Code: RADH_P Modality: DX Procedure: HIP MIN 2 VIEWS (PORTABLE) Laterality: FINDINGS: Right hip hemiarthroplasty appears well-positioned without complication. Left femoral nail with screws. Severe bony hypertrophic changes extending from the lesser trochanteric region to the femoral head. Hypertrophic and possibly posttraumatic changes of the greater trochanter. RAD/Hip Min 2 Views (Portable) IMPRESSION: Uncomplicated appearing right hip hemiarthroplasty. Left hip chronic and surgical changes. Reading Location: [facility]
--- NOTE | 2025-01-20 17:06 | PCM.POSTANE2 ---
Anesthesia Postop Eval I Sum Anesthesia Postop Eval I Summary Anesthesia Postop Eval I Summary: Anesthesia Postop Eval I: Assessment Summary Airway patent Spontaneous unlabored respirations Mental status nausea Vomiting Anesthesia Postop Eval I: Fluid Summary Crystalloid volume administer (ml) Colloids volume administered ( ml) Blood Product volume administered (ml) Total IV fluid infused Anesthesia Postop Eval I: Summary Notes Anesthesia Complication Anesthesia Complication Comment: Post-operative progress note Anesthesia: Postop Eval II Evaluation Mental status: Awake and Calm Pain Level: 1 nausea: No Vomiting: No Complications Anesthesia Complication: No
--- NOTE | 2025-01-20 17:15 | PCM.POST.ANE ---
Anesthesia: Postop Eval I Current Vital Signs Temperature: 97.1 F Pulse Rate: 86 Blood Pressure: 142/56 Respiratory Rate: 16 Pulse Ox: 90 Oxygen Delivery Method: Room Air Assessment Airway patent: Yes Spontaneous unlabored respirations: Yes Mental status: Awake and Calm nausea: No Vomiting: No Anesthesia Complication: No Fluid Hydration Crystalloid volume administer (ml): 600 Total IV fluid infused: 600 Progress Note Post-operative progress note: Assessment time:1618 Anesthesia document: Postop Eval 1 completed: Yes
[2025-01-20] MEDS: Cefazolin 1 GM/50 ML BAG IV (18:20)
[2025-01-20] MEDS: 0.9% Normal Saline (250mL Bag) 250 ML 15 ML IV (19:50)
[2025-01-21] VITALS (7 sets, daily range): BP systolic 129–157; BP diastolic 60–89; PULSE 65–100; RESP 14–18; TEMP 36.5–37.2; O2SAT 93–100; BMI 32.2
[2025-01-21] MEDS: Cefazolin 1 GM/50 ML BAG IV (01:00)
[2025-01-21 05:20] LABS: Hematocrit 28.9 % (37-47); Hemoglobin 9.7 g/dL (12.0-15.0); Mean Corp Hgb Conc 33.6 g/dL (32-36); Mean Corpuscular Volume 82.3 fL (81-99); Mean Platelet Vol. 8.8 fl (6.2-12.0); Platelet Count 209 K/mm3 (150-450); RBC Distribution Width CV 13.1 % (11.6-14.6); RBC Distribution Width SD 39.8 fl (35.1-43.9); Red Blood Count 3.51 M/mm3 (4.2-5.4); White Blood Count 12.1 K/mm3 (4.4-11.0)
[2025-01-21 05:49] LABS: Anion Gap 10 (5-15); BUN 11 mg/dL (4-19); BUN/Creat Ratio 16.5 RATIO (10-20); Calcium,Total 7.8 mg/dL (7.6-11.0); Carbon Dioxide 22.5 mmol/L (21.0-32.0); Chloride 103 mmol/L (98-108); Estimated Creatinine Clearance 49.36 ml/min (50-250); Glucose 167 mg/dL (70-99); Potassium 3.8 mmol/L (3.3-5.1)
--- NOTE | 2025-01-21 07:42 | NURSING ---
Initial rounding in the AM. Pt was awake and sitting in bed. No splint on pt's hand as reported in handoff. Pt states she did not think the [place] [facility] doctor did it right and so she removed it. Advised pt that d/t swelling w/ initial injury, could not be casted, but to minimize movement per NWB status it should be kept in splint. Rewrapped w/ DORIAN over plaster splint base and advised to keep it on.
[2025-01-21] MEDS: Aspirin E.C. 81 MG Tablet PO (08:57)
[2025-01-21] MEDS: Ensure Surgery 237 ML LIQUID PO (08:58)
--- NOTE | 2025-01-21 09:39 | PCM.PN.HOSP ---
Subjective Subjective Doing well, no issues overnight. Pain is controlled Objective Data Objective Data Vital Signs: Vital Signs Temp Pulse Resp BP Pulse Ox O2 Del Method O2 Flow Rate 98.3 F 94 18 147/77 H 94 Room Air 2 01/21/25 09:02 01/21/25 09:02 01/21/25 09:02 01/21/25 09:02 01/21/25 09:02 01/21/25 09:02 01/21/25 06:57 Oxygen Flow Rate (L/min) 2 Oxygen Delivery Method Room Air Weight: 175 lb 3.2 oz Body Mass Index (BMI) 32.2 Intake & Output: Intake and Output for Last 24 Hours 01/20/25 01/21/25 01/22/25 03:59 03:59 03:59 Intake Total 2241 / 2241 151 / 151 Output Total 1400 / 1400 200 / 200 Balance 841 / 841 -49 / -49 Lab / Micro Data 01/21/25 04:40 01/21/25 04:40 Labs: Laboratory Results - last 24 hr 01/21/25 04:40: WBC 12.1 H, RBC 3.51 L, Hgb 9.7 L, Hct 28.9 L, MCV 82.3, MCH 27.6, MCHC 33.6, RDW Std Deviation 39.8, RDW Coeff of Aleena 13.1, Plt Count 209, MPV 8.8, Sodium 135, Potassium 3.8, Chloride 103, Carbon Dioxide 22.5, Anion Gap 10, BUN 11, Creatinine 0.69 L, Estim Creat Clear Calc 49.36 L, Est GFR (MDRD) Non-Af 86, BUN/Creatinine Ratio 16.5, Glucose 167 H, Calcium 7.8 Radiography Diagnostic Testing: Radiology Impression Hip X-Ray 01/20/25 15:10 IMPRESSION: Uncomplicated appearing right hip hemiarthroplasty. Left hip surgical and chronic changes. [facility]-Ray 01/20/25 16:20 IMPRESSION: Uncomplicated appearing right hip hemiarthroplasty. Left hip chronic and surgical changes. Reading Location: [facility] Physical Exam Narrative General: Alert, Oriented x3, Cooperative, No apparent distress HEENT: Atraumatic, PERRLA, EOMI, Normocephalic Oral: Moist Mucosa Neck: Supple, No JVD Lungs: Diminished, Normal air movement, No rhonchi, No wheeze, No rales Cardiovascular: Regular rate, Regular Rhythm, Normal S1, Normal S2, No murmurs Abdomen: Soft, Non Tender, Non-Distended, No Hepato-splenomegaly Extremities: No edema, Capillary Refill Less than 3 Seconds Skin: No rashes, No breakdown, dressing CDI. Skin is bluegray due to colloidal silver Musculoskeletal: Tenderness to the right hip palpation Neurological: No focal neurological deficits, moves all extremities except right lower extremity due to surgery Psych/Mental Status: Normal Affect, Appropriate Assessment & Plan Assessment/Plan (1) Closed hip fracture: QUALIFIERS: Encounter type: initial encounter Laterality: left Qualified Code(s): S72.002A - Fracture of unspecified part of neck of left femur, initial encounter for closed fracture (2) Metacarpal bone fracture: QUALIFIERS: Encounter type: initial encounter Metacarpal bone: unspecified metacarpal Fracture type: closed Metacarpal location: shaft Fracture alignment: nondisplaced Qualified Code(s): S62.359A - Nondisplaced fracture of shaft of unspecified metacarpal bone, initial encounter for closed fracture (3) COVID-19: PLAN: Plan # Impacted right intertrochanteric fracture of the femoral neck and metacarpal fracture right hand status post repair 01/20/2025 -After mechanical fall at [facility] -Ortho consulted -Patient n.p.o. -Pain control/supportive care -PT/OT postop 01/21/2025: PT/OT pending pre-CERT, she is weightbearing as tolerated and nonweightbearing on her wrist # Parkinson's disease - continue home Sinemet - supportive care #Hx of CAD -w/ previous chronically on aspirin and statin -Continue home medications # Elevated trop - Troponin of 27, 29, and then 28 - No chest pain, fall was mechanical, no significant elevations or concern for ongoing/active process # Recent COVID diagnosis - Supportive care -Reports symptoms started Thursday and she was diagnosed on Thursday, has no shortness of breath or cough or respiratory complaints - Patient saturating well on 2 L of nasal cannula # History of fibromyalgia - Continue Cymbalta DVT: Xarelto Charges/Coding Visit Charges Inpatient E&M: 22153 Subs Hosp L2
[2025-01-21] MEDS: Psyllium 1 PACKET PO (10:52)
[2025-01-21] MEDS: Polyethylene Glycol 3350 17 GM PACKET PO (10:52)
--- NOTE | 2025-01-21 11:36 | CASEMGMT ---
Addendum entered by Danielle Kerr 01/21/25 13:41: Social Work SW received a message from [facility] that pt is not in the Assisted Living but in the [facility] under Medicaid. Per Flavia at [facility], pt can return to the same room at [facility], but will need precert to return. Pt to remain in hospital over the weekend. Precert to be started by [place] [facility], likely on Thursday, and [place] to notify SW when precert has been obtained and pt can return. Plan: Return to [facility], pending precert S SANCHEZ Kerr Original Note: Social Work SW spoke with pt's dgt Palmira who states pt lives in the assisted living at [facility] and pt's lives in the room beside pt. Palmira states that pt would want to return to [facility] at time of discharge. JOSUE reviewed therapy notes with Palmira and explained that currently pt is Max Ax2 for all movement and is only able to ambulate a few feet with Max A. [facility] may not be able to accommodate pts needs in the Assisted Living. Palmira is understanding. JOSUE offered to provide a list of SNF providers who can provide rehab to pt, but Palmira declined stating if rehab is needed, pt would want to stay at [facility] as she was in the skilled section previously and was treated very well. Updates sent in careport to [facility] and JOSUE sent message inquiring about level of care upon return. If pt needs a skilled level of care to return, which this securities underwriter anticipates, pt will need precert to return. Physician updated. Plan: [facility], Likely a skilled level of care and precert will be needed. Pt here through the weekend until this is determined by SANCHEZ Trujillo
--- NOTE | 2025-01-21 13:35 | PCM.PN.ORT ---
Subjective Subjective Patient states she is doing well. No significant right hand pain. Splint is in place. Right hip feels well. She was able to transfer with the staff. Patient was able to participate in therapy. Patient comes from assisted living and would like to return to assisted living upon discharge. Plan is to establish plan of care first of the week. Overall doing well. No chest pain or shortness of breath reported. No acute events reported overnight. Objective Data Objective Data Vital Signs: Vital Signs Temp Pulse Resp BP Pulse Ox O2 Del Method O2 Flow Rate 98.3 F 94 18 147/77 H 94 Room Air 2 01/21/25 09:02 01/21/25 09:02 01/21/25 09:02 01/21/25 09:02 01/21/25 10:00 01/21/25 10:00 01/21/25 06:57 Oxygen Flow Rate (L/min) 2 Oxygen Delivery Method Room Air Weight: 175 lb 3.2 oz Body Mass Index (BMI) 32.2 Intake & Output: Intake and Output for Last 24 Hours 01/19/25 01/20/25 01/21/25 23:59 23:59 23:59 Intake Total 2191 / 2191 201 / 201 Output Total 1000 / 1400 600 / 600 Balance 1191 / 791 -399 / -399 Lab / Micro Data Attestation: I reviewed the patient's lab results. 01/21/25 04:40 01/21/25 04:40 Labs: Laboratory Results - last 24 hr 01/21/25 04:40: WBC 12.1 H, RBC 3.51 L, Hgb 9.7 L, Hct 28.9 L, MCV 82.3, MCH 27.6, MCHC 33.6, RDW Std Deviation 39.8, RDW Coeff of Aleena 13.1, Plt Count 209, MPV 8.8, Sodium 135, Potassium 3.8, Chloride 103, Carbon Dioxide 22.5, Anion Gap 10, BUN 11, Creatinine 0.69 L, Estim Creat Clear Calc 49.36 L, Est GFR (MDRD) Non-Af 86, BUN/Creatinine Ratio 16.5, Glucose 167 H, Calcium 7.8 Radiography Diagnostic Testing: Radiology Impression Hip X-Ray 01/20/25 15:10 IMPRESSION: Uncomplicated appearing right hip hemiarthroplasty. Left hip surgical and chronic changes. Reading Location: [facility] Hip X-Ray 01/20/25 16:20 IMPRESSION: Uncomplicated appearing right hip hemiarthroplasty. Left hip chronic and surgical changes. Reading [facility] Physical Exam Const alert, oriented x3 and no apparent distress Extremity Extremity Narrative: Right lower extremity: Dressing is clean dry and intact Sensations intact to light touch saphenous, sural, superficial peroneal, deep peroneal, and tibial distributions Motors intact EHL, DF, PF calves are soft and supple Thigh is soft and supple Assessment & Plan Assessment/Plan (1) Nondisplaced fracture of base of fourth metacarpal bone, right hand, initial encounter for closed fracture: PLAN: Maintain splint. Nonweightbearing right hand. May bear weight through elbow with platform walker. (2) Subcapital fracture of right femur: PLAN: Postop day 1 right hip hemiarthroplasty 1. DVT prophylaxis: Xarelto 10 mg daily for 2 weeks followed by aspirin 81 mg daily for 2 weeks 2. Dressing: Dressing is clean and dry leave on for 5 days. Okay to remove on postop day 5 leave open to air if incision is clean dry and intact continue dry dressing if any drainage continues 3. Pain control: Per primary service 4. Therapy: Weightbearing as tolerated, anterior precautions. Platform walker for right upper extremity injury 5. Incision/wound care: Sutures can be removed on postop day 14 6. Disposition: Patient is orthopedically stable. Okay for discharge when medically appropriate and discharge arrange. Follow-up in office in 2 weeks for x-ray check and wound check.
[2025-01-22 03:58] LABS: Hematocrit 26.6 % (37-47); Hemoglobin 9.1 g/dL (12.0-15.0); Mean Corp Hgb Conc 34.2 g/dL (32-36); Mean Corpuscular Volume 81.6 fL (81-99); Mean Platelet Vol. 9.2 fl (6.2-12.0); Platelet Count 211 K/mm3 (150-450); RBC Distribution Width CV 13.0 % (11.6-14.6); RBC Distribution Width SD 39.3 fl (35.1-43.9); Red Blood Count 3.26 M/mm3 (4.2-5.4); White Blood Count 8.6 K/mm3 (4.4-11.0)
[2025-01-22 04:26] LABS: Anion Gap 10 (5-15); BUN 18 mg/dL (4-19); BUN/Creat Ratio 27.5 RATIO (10-20); Calcium,Total 8.2 mg/dL (7.6-11.0); Carbon Dioxide 23.1 mmol/L (21.0-32.0); Chloride 103 mmol/L (98-108); Estimated Creatinine Clearance 50.86 ml/min (50-250); Glucose 135 mg/dL (70-99); Potassium 4.2 mmol/L (3.3-5.1)
[2025-01-22 04:56] VITALS: BP 139/87; PULSE 93; RESP 18; TEMP 36.9; O2SAT 97; BMI 30.4
--- NOTE | 2025-01-22 09:18 | PN.HOSP_ITS ---
Subjective Subjective Doing well, pain is controlled. Objective Data Objective Data Vital Signs: Vital Signs Temp Pulse Resp BP Pulse Ox O2 Del Method O2 Flow Rate 98.4 F 93 18 139/87 H 97 Nasal Cannula 2 01/22/25 04:56 01/22/25 04:56 01/22/25 04:56 01/22/25 04:56 01/22/25 04:56 01/22/25 08:05 01/22/25 08:05 Oxygen Flow Rate (L/min) 2 Oxygen Delivery Method Nasal Cannula Weight: 165 lb 5.547 oz Body Mass Index (BMI) 30.4 Intake & Output: Intake and Output for Last 24 Hours 01/21/25 01/22/25 01/23/25 03:59 03:59 03:59 Intake Total 2241 / 2241 851 / 851 300 / 300 Output Total 1400 / 1400 850 / 850 300 / 300 Balance 841 / 841 0 / 0 Lab / Micro Data 01/22/25 03:24 01/22/25 03:24 Labs: Laboratory Results - last 24 hr 01/22/25 03:24: WBC 8.6, RBC 3.26 L, Hgb 9.1 L, Hct 26.6 L, MCV 81.6, MCH 27.9, MCHC 34.2, RDW Std Deviation 39.3, RDW Coeff of Aleena 13.0, Plt Count 211, MPV 9.2, Sodium 136, Potassium 4.2, Chloride 103, Carbon Dioxide 23.1, Anion Gap 10, BUN 18, Creatinine 0.64 L, Estim Creat Clear Calc 50.86, Est GFR (MDRD) Non-Af 88, BUN/Creatinine Ratio 27.5 H, Glucose 135 H, Calcium 8.2 Physical Exam Narrative General: Alert, Oriented x3, Cooperative, No apparent distress HEENT: Atraumatic, PERRLA, EOMI, Normocephalic Oral: Moist Mucosa Neck: Supple, No JVD Lungs: Diminished, Normal air movement, No rhonchi, No wheeze, No rales Cardiovascular: Regular rate, Regular Rhythm, Normal S1, Normal S2, No murmurs Abdomen: Soft, Non Tender, Non-Distended, No Hepato-splenomegaly Extremities: No edema, Capillary Refill Less than 3 Seconds Skin: No rashes, No breakdown, dressing CDI. Skin is bluegray due to colloidal silver Musculoskeletal: Tenderness to the right hip palpation Neurological: No focal neurological deficits, moves all extremities except right lower extremity due to surgery Psych/Mental Status: Normal Affect, Appropriate Assessment & Plan Assessment/Plan (1) Closed hip fracture: QUALIFIERS: Encounter type: initial encounter Laterality: left Q ualified Code(s): S72.002A - Fracture of unspecified part of neck of left femur, initial encounter for closed fracture (2) Metacarpal bone fracture: QUALIFIERS: Encounter type: initial encounter Metacarpal bone: u nspecified metacarpal Fracture type: closed Metacarpal location: shaft F racture alignment: nondisplaced Qualified Code(s): S62.359A - Nondisplaced fracture of shaft of unspecified metacarpal bone, initial encounter for closed fracture (3) COVID-19: PLAN: Plan # Impacted right intertrochanteric fracture of the femoral neck and metacarpal fracture right hand status post repair 01/20/2025 -[facility] mechanical fall at [facility] -Ortho consulted -Patient n.p.o. -Pain control/supportive care -PT/OT postop 01/21/2025: PT/OT pending pre-CERT, she is weightbearing as tolerated and nonweightbearing on her wrist 01/22/2025: Awaiting pre-CERT, hemoglobin has dropped but will recheck in the morning # Parkinson's disease - continue home Sinemet - supportive care #Hx of CAD -w/ previous chronically on aspirin and statin -Continue home medications # Elevated trop - Troponin of 27, 29, and then 28 - No chest pain, fall was mechanical, no significant elevations or concern for ongoing/active process # Recent COVID diagnosis - Supportive care -Reports symptoms started Thursday and she was diagnosed on Thursday, has no shortness of breath or cough or respiratory complaints - Currently doing well on room air # History of fibromyalgia - Continue Cymbalta DVT: [place] Charges/Coding Visit Charges Inpatient E&M: 55329 Subs Hosp L2
[2025-01-22 09:34] VITALS: BP 132/71; PULSE 93; RESP 18; TEMP 36.5; O2SAT 98
[2025-01-22] MEDS: Psyllium 1 PACKET PO (09:54)
[2025-01-22] MEDS: Polyethylene Glycol 3350 17 GM PACKET PO (09:55)
[2025-01-22] MEDS: Aspirin E.C. 81 MG Tablet PO (09:55)
[2025-01-22 14:14] VITALS: BP 123/53; PULSE 83; RESP 18; TEMP 36.8; O2SAT 100
[2025-01-22 14:24] VITALS: O2SAT 100
[2025-01-22 21:27] VITALS: BP 148/94; PULSE 87; RESP 18; TEMP 36.9; O2SAT 98
[2025-01-23 03:18] VITALS: BP 115/75; PULSE 87; RESP 18; TEMP 36.8; O2SAT 97
[2025-01-23 05:17] VITALS: BMI 30.2
[2025-01-23 06:46] LABS: Hematocrit 25.6 % (37-47); Hemoglobin 8.6 g/dL (12.0-15.0); Mean Corp Hgb Conc 33.6 g/dL (32-36); Mean Corpuscular Volume 82.6 fL (81-99); Mean Platelet Vol. 9.2 fl (6.2-12.0); Platelet Count 250 K/mm3 (150-450); RBC Distribution Width CV 13.2 % (11.6-14.6); RBC Distribution Width SD 39.6 fl (35.1-43.9); Red Blood Count 3.10 M/mm3 (4.2-5.4); White Blood Count 8.6 K/mm3 (4.4-11.0)
[2025-01-23 07:32] LABS: Anion Gap 9 (5-15); BUN 16 mg/dL (4-19); BUN/Creat Ratio 26.3 RATIO (10-20); Calcium,Total 8.3 mg/dL (7.6-11.0); Carbon Dioxide 24.2 mmol/L (21.0-32.0); Chloride 102 mmol/L (98-108); Estimated Creatinine Clearance 49.16 ml/min (50-250); Glucose 105 mg/dL (70-99); Potassium 3.8 mmol/L (3.3-5.1)
[2025-01-23 08:10] VITALS: BP 136/64; PULSE 92; RESP 17; TEMP 37; O2SAT 95
[2025-01-23] MEDS: Aspirin E.C. 81 MG Tablet PO (08:15)
[2025-01-23] MEDS: Polyethylene Glycol 3350 17 GM PACKET PO (08:15)
[2025-01-23] MEDS: Psyllium 1 PACKET PO (08:15)
--- NOTE | 2025-01-23 08:41 | CASEMGMT ---
Discharge Planning Updates sent to [facility]. This process description writer spoke with Liv (DINKEY OPERATOR SLATE/MDS?) who confirms that precert was submitted on Thursday. [facility] to inquire if pt can return while waiting on precert. SW updated. Frida Santamaria DC Planning Asst.
--- NOTE | 2025-01-23 10:53 | PCM.PN.HOSP ---
Subjective Subjective Pain is controlled, no issues overnight Objective Data Objective Data Vital Signs: Vital Signs Temp Pulse Resp BP Pulse Ox O2 Del Method O2 Flow Rate 98.6 F 92 17 136/64 H 95 Room Air 2 01/23/25 08:10 01/23/25 08:10 01/23/25 08:10 01/23/25 08:10 01/23/25 08:10 01/23/25 08:29 01/22/25 08:05 Oxygen Flow Rate (L/min) 2 Oxygen Delivery Method Room Air Weight: 164 lb 0.383 oz Body Mass Index (BMI) 30.2 Intake & Output: Intake and Output for Last 24 Hours 01/22/25 01/23/25 01/24/25 03:59 03:59 03:59 Intake Total 851 / 851 1620 / 1620 500 / 500 Output Total 850 / 850 1050 / 1050 700 / 700 Balance 570 / 570 -200 / -200 Lab / Micro Data 01/23/25 06:27 01/23/25 06:27 Labs: Laboratory Results - last 24 hr 01/23/25 06:27: WBC 8.6, RBC 3.10 L, Hgb 8.6 L, Hct 25.6 L, MCV 82.6, MCH 27.7, MCHC 33.6, RDW Std Deviation 39.6, RDW Coeff of Aleena 13.2, Plt Count 250, MPV 9.2, Sodium 135, Potassium 3.8, Chloride 102, Carbon Dioxide 24.2, Anion Gap 9, BUN 16, Creatinine 0.61 L, Estim Creat Clear Calc 49.16 L, Est GFR (MDRD) Non-Af 89, BUN/Creatinine Ratio 26.3 H, Glucose 105 H, Calcium 8.3 Physical Exam Narrative General: Alert, Oriented x3, Cooperative, No apparent distress HEENT: Atraumatic, PERRLA, EOMI, Normocephalic Oral: Moist Mucosa Neck: Supple, No JVD Lungs: Diminished, Normal air movement, No rhonchi, No wheeze, No rales Cardiovascular: Regular rate, Regular Rhythm, Normal S1, Normal S2, No murmurs Abdomen: Soft, Non Tender, Non-Distended, No Hepato-splenomegaly Extremities: No edema, Capillary Refill Less than 3 Seconds Skin: No rashes, No breakdown, dressing CDI. Skin is bluegray due to colloidal silver Musculoskeletal: Tenderness to the right hip palpation Neurological: No focal neurological deficits, moves all extremities except right lower extremity due to surgery Psych/Mental Status: Normal Affect, Appropriate Assessment & Plan Assessment/Plan (1) Closed hip fracture: QUALIFIERS: Encounter type: initial encounter Laterality: left Qualified Code(s): S72.002A - Fracture of unspecified part of neck of left femur, initial encounter for closed fracture (2) Metacarpal bone fracture: QUALIFIERS: Encounter type: initial encounter Metacarpal bone: unspecified metacarpal Fracture type: closed Metacarpal location: shaft Fracture alignment: nondisplaced Qualified Code(s): S62.359A - Nondisplaced fracture of shaft of unspecified metacarpal bone, initial encounter for closed fracture (3) COVID-19: PLAN: Plan # Impacted right intertrochanteric fracture of the femoral neck and metacarpal fracture right hand status post repair 01/20/2025 -After mechanical fall at [facility] -Ortho consulted -Patient n.p.o. -Pain control/supportive care -PT/OT postop 01/21/2025: PT/OT pending pre-CERT, she is weightbearing as tolerated and nonweightbearing on her wrist 01/22/2025: Awaiting pre-CERT, hemoglobin has dropped but will recheck in the morning 01/23/2025: Awaiting pre-CERT, hemoglobin is 8.6 which is several points lower than admission however her her hemoglobin tends to run low at times. Will check iron studies today # Parkinson's disease - continue home Sinemet - supportive care #Hx of CAD -w/ previous chronically on aspirin and statin -Continue home medications # Elevated trop - Troponin of 27, 29, and then 28 - No chest pain, fall was mechanical, no significant elevations or concern for ongoing/active process # Recent COVID diagnosis - Supportive care -Reports symptoms started Thursday and she was diagnosed on Thursday, has no shortness of breath or cough or respiratory complaints - Currently doing well on room air # History of fibromyalgia - Continue Cymbalta DVT: Xarelto Charges/Coding Visit Charges Inpatient E&M: 50129 Subs Hosp L2
--- NOTE | 2025-01-23 10:55 | CASEMGMT ---
Social Work- SW spoke with pt dtr to provide update on precert status for return to [facility]. Precert pending for return skilled. SW will continue to update as new information becomes available. [facility]; skilled level [facility] care, precert pend SANCHEZ Mackenzie
[2025-01-23 12:07] LABS: Ferritin 1208 ng/mL (22-378); Iron 70 ug/dL (50-170); Iron Binding Capacity,Unsat 119 ug/dL (228-428)
[2025-01-23 13:57] LABS: Iron Binding Capacity,Total 189 ug/dL (250-450)
[2025-01-23 14:30] VITALS: BP 119/60; PULSE 82; RESP 16; TEMP 36.8; O2SAT 98
[2025-01-23 21:39] VITALS: BP 120/63; PULSE 87; RESP 20; TEMP 36.9; O2SAT 97
[2025-01-23] MEDS: 0.9% Saline Lock 10 ML Syringe IV (21:45)
[2025-01-24 04:42] VITALS: BMI 30.1
[2025-01-24 04:50] VITALS: BP 117/47; PULSE 65; RESP 16; TEMP 36.8; O2SAT 97
[2025-01-24 07:44] LABS: Hematocrit 25.0 % (37-47); Hemoglobin 8.2 g/dL (12.0-15.0); Mean Corp Hgb Conc 32.8 g/dL (32-36); Mean Corpuscular Volume 83.9 fL (81-99); Mean Platelet Vol. 9.1 fl (6.2-12.0); Platelet Count 308 K/mm3 (150-450); RBC Distribution Width CV 13.2 % (11.6-14.6); RBC Distribution Width SD 40.6 fl (35.1-43.9); Red Blood Count 2.98 M/mm3 (4.2-5.4); White Blood Count 8.6 K/mm3 (4.4-11.0)
[2025-01-24 08:15] LABS: Anion Gap 9 (5-15); BUN 19 mg/dL (4-19); BUN/Creat Ratio 28.0 RATIO (10-20); Calcium,Total 8.4 mg/dL (7.6-11.0); Carbon Dioxide 24.5 mmol/L (21.0-32.0); Chloride 103 mmol/L (98-108); Estimated Creatinine Clearance 49.12 ml/min (50-250); Glucose 97 mg/dL (70-99); Potassium 3.9 mmol/L (3.3-5.1)
[2025-01-24 09:00] VITALS: BP 132/51; PULSE 84; RESP 16; TEMP 36.8; O2SAT 98
[2025-01-24] MEDS: Polyethylene Glycol 3350 17 GM PACKET PO (09:43)
[2025-01-24] MEDS: Ensure Surgery 237 ML LIQUID PO ×3 (09:43→18:16)
[2025-01-24] MEDS: Aspirin E.C. 81 MG Tablet PO (09:43)
--- NOTE | 2025-01-24 10:31 | PN.HOSP_ITS ---
Subjective Subjective Doing well, no issues overnight. Hemoglobin is dropped to 8.2 will recheck this afternoon Objective Data Objective Data Vital Signs: Vital Signs Temp Pulse Resp BP Pulse Ox O2 Del Method O2 Flow Rate 98.2 F 65 16 117/47 L 97 Room Air 2 01/24/25 04:50 01/24/25 04:50 01/24/25 04:50 01/24/25 04:50 01/24/25 04:50 01/24/25 04:50 01/22/25 08:05 Oxygen Flow Rate (L/min) 2 Oxygen Delivery Method Room Air Weight: 163 lb 12.855 oz Body Mass Index (BMI) 30.1 Intake & Output: Intake and Output for Last 24 Hours 01/23/25 01/24/25 01/25/25 03:59 03:59 03:59 Intake Total 1620 / 1620 500 / 500 Output Total 1050 / 1050 1000 / 1000 400 / 400 Balance 570 / 570 -500 / -500 -400 / -400 Lab / Micro Data 01/24/25 07:36 01/24/25 07:36 Labs: Laboratory Results - last 24 hr 01/23/25 06:27: Iron 70, TIBC 189 L, Iron Saturation 37.0, Unsaturated IBC 119 L , Ferritin 1208 H 01/24/25 07:36: WBC 8.6, RBC 2.98 L, Hgb 8.2 L, Hct 25.0 L, MCV 83.9, MCH 27.5, MCHC 32.8, RDW Std Deviation 40.6, RDW Coeff of Aleena 13.2, Plt Count 308, MPV 9.1, Sodium 136, Potassium 3.9, Chloride 103, Carbon Dioxide 24.5, Anion Gap 9, BUN 19, Creatinine 0.68 L, Estim Creat Clear Calc 49.12 L, Est GFR (MDRD) Non-Af 86, BUN/Creatinine Ratio 28.0 H, Glucose 97, Calcium 8.4 Physical Exam Narrative General: Alert, Oriented x3, Cooperative, No apparent distress HEENT: Atraumatic, PERRLA, EOMI, Normocephalic Oral: Moist Mucosa Neck: Supple, No JVD Lungs: Diminished, Normal air movement, No rhonchi, No wheeze, No rales Cardiovascular: Regular rate, Regular Rhythm, Normal S1, Normal S2, No murmurs Abdomen: Soft, Non Tender, Non-Distended, No Hepato-splenomegaly Extremities: No edema, Capillary Refill Less than 3 Seconds Skin: No rashes, No breakdown, dressing CDI. Skin is bluegray due to colloidal silver Musculoskeletal: Tenderness to the right hip palpation Neurological: No focal neurological deficits, moves all extremities except right lower extremity due to surgery Psych/Mental Status: Normal Affect, Appropriate Assessment & Plan Assessment/Plan (1) Closed hip fracture: QUALIFIERS: Encounter type: initial encounter Laterality: left Q ualified Code(s): S72.002A - Fracture of unspecified part of neck of left femur, initial encounter for closed fracture (2) Metacarpal bone fracture: QUALIFIERS: Encounter type: initial encounter Metacarpal bone: u nspecified metacarpal Fracture type: closed Metacarpal location: shaft F racture alignment: nondisplaced Qualified Code(s): S62.359A - Nondisplaced fracture of shaft of unspecified metacarpal bone, initial encounter for closed fracture (3) COVID-19: PLAN: Plan # Impacted right intertrochanteric fracture of the femoral neck and metacarpal fracture right hand status post repair 01/20/2025 -After mechanical fall at [facility] -Ortho consulted -Patient n.p.o. -Pain control/supportive care -PT/OT postop 01/21/2025: PT/OT pending pre-CERT, she is weightbearing as tolerated and nonweightbearing on her wrist 01/22/2025: Awaiting pre-CERT, hemoglobin has dropped but will recheck in the morning 01/23/2025: Awaiting pre-CERT, hemoglobin is 8.6 which is several points lower than admission however her her hemoglobin tends to run low at times. Will check iron studies today 01/24/2025: Iron studies were unremarkable, will recheck hemoglobin this afternoon, if she drops below 8 given her coronary artery disease, can transfuse # Parkinson's disease - continue home Sinemet - supportive care #Hx of CAD -w/ previous chronically on aspirin and statin -Continue home medications # Elevated trop - Troponin of 27, 29, and then 28 - No chest pain, fall was mechanical, no significant elevations or concern for ongoing/active process # Recent COVID diagnosis - Supportive care -Reports symptoms started Thursday and she was diagnosed on Thursday, has no shortness of breath or cough or respiratory complaints - Currently doing well on room air # History of fibromyalgia - Continue Cymbalta DVT: [place] Charges/Coding Visit Charges Inpatient E&M: 21049 Subs Hosp L2
[2025-01-24 12:48] LABS: Hematocrit 25.1 % (37-47); Hemoglobin 8.5 g/dL (12.0-15.0)
--- NOTE | 2025-01-24 14:30 | CHAPLAIN ---
Type of Pastoral Visit ___ Initial Visit ___ Follow-up Visit ___ On-call Visit ___ General Patient Visit ___ Spiritual Assessment ___ Family Conference ___ Bereavement ___ Rapid Response ___ Code Blue _x__ Other (describe below) Pastoral Care Referral From _x__ Patient ___ Family ___ Nurse ___ Physician ___ Etcher Hand ___ Vehicle Operator ___ Other (describe below) Sacrament/Intervention _x__ Active listening ___ Anointing ___ Gnosticist ___ Bereavement ___ Communion ___ Ashley exploration ___ ___ Life review _x__ Prayer ___ Reconciliation ___ Sacrament of Sick ___ Supportive presence ___ Wedding _x__ Other (describe below) Pastoral Comments patient is in isolation room but was able to take a phone call and speak with this account engineer; pt says that she is doing well but would like to have communion given to her; pt is of the [place]ai [place] and would need to be served by [facility] who are not able to come into the isolation room; this was explained to the patient; pt also has concerns for her who 'does not like it when I'm not there and has a hard time; pt says that daughter is staying with the spouse; pt would like a prayer to be given for her and this was accomplished; if patient comes out of isolation, then a request for communion can be communicated
[2025-01-24 16:04] VITALS: BP 119/48; PULSE 86; RESP 16; TEMP 36.8; O2SAT 100
--- NOTE | 2025-01-24 17:00 | CASEMGMT ---
Social Work SW called daughter Palmira, let her know that the precert is still pending for pt to return to [facility]. SW will follow up tomorrow. Daughter states understanding. WILLIE Her
[2025-01-24 22:59] VITALS: BP 118/57; PULSE 80; RESP 18; TEMP 37; O2SAT 95
[2025-01-25 04:55] VITALS: BP 126/61; PULSE 78; RESP 16; TEMP 36.8; O2SAT 96
[2025-01-25 06:00] VITALS: BMI 30.7
[2025-01-25 06:51] LABS: Hematocrit 24.9 % (37-47); Hemoglobin 8.4 g/dL (12.0-15.0); Mean Corp Hgb Conc 33.7 g/dL (32-36); Mean Corpuscular Volume 82.7 fL (81-99); Mean Platelet Vol. 8.7 fl (6.2-12.0); Platelet Count 362 K/mm3 (150-450); RBC Distribution Width CV 13.2 % (11.6-14.6); RBC Distribution Width SD 40.2 fl (35.1-43.9); Red Blood Count 3.01 M/mm3 (4.2-5.4); White Blood Count 8.6 K/mm3 (4.4-11.0)
[2025-01-25 07:47] VITALS: O2SAT 95
--- NOTE | 2025-01-25 08:26 | CASEMGMT ---
Discharge Planning Updates sent via [facility] to [facility]. Precert remains pending. Frida Santamaria DC Planning Asst.
--- NOTE | 2025-01-25 08:34 | CASEMGMT ---
[facility] has obtained auth to admit. Frida Santamaria DC Planning Asst.
--- NOTE | 2025-01-25 09:18 | TREXTCAR_ITS ---
Diet Diet Order/Speech Therapy: INPATIENT Hospital Diet / Speech Therapy Order(s) 01/21/25 01:02 Diet: Regular - General Routine Orders/Code Status Routine Lab Work: CBC and BMP Code Status: Full Code DC O2, CPAP, BIPAP needs Home O2 Discharge instructions: No Wound(s) right hip: Wound Type: Surgical Incision Therapies Weight Bearing: Weight bearing as tolerated Physical Therapy: Eval and Treat Occupational Therapy: Eval and Treat Problem/Diagnosis (1) Closed hip fracture: Status: Acute Code(s): S72.009A - Fracture of unspecified part of neck of unspecified femur, initial encounter for closed fracture (2) Metacarpal bone fracture: Status: Acute Code(s): S62.309A - Unspecified fracture of unspecified metacarpal bone, initial encounter for closed fracture (3) COVID-19: Status: Acute Code(s): U07.1 - COVID-19 Plan # Impacted right intertrochanteric fracture of the femoral neck and metacarpal fracture right hand status post repair 01/20/2025 -After mechanical fall at [facility] -Ortho consulted -Patient n.p.o. -Pain control/supportive care -PT/OT postop 01/21/2025: PT/OT pending pre-CERT, she is weightbearing as tolerated and nonweightbearing on her wrist 01/22/2025: Awaiting pre-CERT, hemoglobin has dropped but will recheck in the morning 01/23/2025: Awaiting pre-CERT, hemoglobin is 8.6 which is several points lower than admission however her her hemoglobin tends to run low at times. Will check iron studies today 01/24/2025: Iron studies were unremarkable, will recheck hemoglobin this afternoon, if she drops below 8 given her coronary artery disease, can transfuse # Parkinson's disease - continue home Sinemet - supportive care #Hx of CAD -w/ previous chronically on aspirin and statin -Continue home medications # Elevated trop - Troponin of 27, 29, and then 28 - No chest pain, fall was mechanical, no significant elevations or concern for ongoing/active process # Recent COVID diagnosis - Supportive care -Reports symptoms started Thursday and she was diagnosed on Thursday, has no shortness of breath or cough or respiratory complaints - Currently doing well on room air # History of fibromyalgia - Continue Cymbalta DVT: Xarelto Allergies/Procedures Done in Hospital Allergies oxycodone (From Percocet) Allergy (Severe, Verified 01/20/25 01:40) Hives Procedures: None (Right hip endoprosthesis) Type of Care/Length of Stay Estimated LOS: Convalescent Care Less Than 30 days Type of Care Needed: Skilled Rehab Potential: Good Prognosis: Good Additional Orders/Day of Discharge Day of Discharge: 01/25/25 Discharge Plan Admission Admit Date/Time: 01/20/25 01:09 Attending Provider: Davian Kelly Primary Care Provider: Tressa Rosales Consulting Providers: Braulio Tijerina; Stephan Martel; Darline Lundy Discharge Orders/Prescriptions Prescriptions: New Xarelto 10 mg Tablet 10 mg PO DAILY@0600 9 Days Qty: 0 0RF aspirin 81 mg Tablet,Delayed Release (Dr/Ec) 81 mg PO BREAKFAST Qty: 0 0RF Rx Instructions: Once xarelto is completed, start ASA 81 mg BID for 2 weeks, then resume daily dosing Continued alendronate 70 mg tablet 70 mg PO QWEEK duloxetine 20 mg capsule,delayed release(DR/EC) 20 mg PO QDAY celecoxib 200 mg capsule 200 mg PO QDAY carbidopa-levodopa 25-100 mg tablet 2 tab PO DAILY tramadol 50 mg tablet 50 mg PO TID PRN (Reason: pain) guaifenesin 100 mg/5 mL liquid 200 mg PO Q4H PRN (Reason: cough) simethicone [Mylanta Gas] 125 mg tablet,chewable 125 mg PO QD-BID PRN (Reason: abdominal distention) melatonin 3 mg capsule 3 mg PO HS PRN (Reason: sleep) atorvastatin 40 mg tablet 40 mg PO QHS polyethylene glycol 3350 [ClearLax] 17 gram/dose powder 17 g PO DAILY Stacie-Mucil 3.4 gram/5.4 gram powder 1 tbsp PO DAILY Rx Instructions: mix into at least 8 oz of water or juice before administering acetaminophen 325 mg capsule 650 mg PO Q6H PRN (Reason: fever or pain) Paxlovid 300 mg (150 mg x 2)-100 mg tablets,dose pack See Rx Instructions .ROUTE .COMPLEX Rx Instructions: take TWO 150 mg tablets of nirmatrelvir with ONE 100 mg tablet of ritonavir twice daily for 5 days carbidopa-levodopa [Dhivy] 25-100 mg tablet 1.5 tab PO TID mirabegron [Myrbetriq] 50 mg tablet extended release 24 hr 50 mg PO DAILY cyanocobalamin (vitamin B-12) 5,000 mcg capsule 5,000 mcg PO DAILY ascorbic acid (vitamin C) 500 mg capsule 500 mg PO DAILY cholecalciferol (vitamin D3) 50 mcg (2,000 unit) capsule 50 mcg PO DAILY Discontinued aspirin [Adult Aspirin Regimen] 81 mg tablet,delayed release (DR/EC) 81 mg PO DAILY Referrals / Follow Up: Braulio Tijerina MD [Med Staff - Active Staff, Orthopedics] - Within 2 Weeks Tressa Rosales [Primary Care Provider, Medical] Disposition Disposition (needs filled in before D/C Order can be placed): Long Term Fa cility (1) Closed hip fracture Qualifiers: Encounter type: initial encounter Laterality: left Qualified Code(s): S72.002A - Fracture of unspecified part of neck of left femur, initial encounter for closed fracture (2) Metacarpal bone fracture Qualifiers: Encounter type: initial encounter Metacarpal bone: unspecified metacarpal Fracture type: closed Metacarpal location: shaft Fracture alignment: nondisplaced Qualified Code(s): S62.359A - Nondisplaced fracture of shaft of unspecified metacarpal bone, initial encounter for closed fracture
--- NOTE | 2025-01-25 09:38 | PHA.DC.MR.R ---
Pharmacy [place] Med Reconciliation Pharmacy Service has performed discharge medication reconciliation for this patient. The patient's discharge medication list was reviewed for discrepancies and discrepancies were resolved. Medications at Discharge Home Medications acetaminophen 325 mg capsule 650 mg PO Q6H PRN fever or pain 05/01/23 atorvastatin 40 mg tablet 40 mg PO QHS hld 05/01/23 polyethylene glycol 3350 17 gram/dose oral powder (ClearLax) 17 g PO DAILY 05/01/23 psyllium husk 3.4 gram/5.4 gram oral powder (Stacie-Mucil) 1 tbsp PO DAILY 05/01/23 alendronate 70 mg tablet 70 mg PO QWEEK osteoporosis 09/27/24 carbidopa 25 mg-levodopa 100 mg tablet 2 tab PO DAILY parkinson 09/27/24 celecoxib 200 mg capsule 200 mg PO QDAY 09/27/24 duloxetine 20 mg capsule,delayed release 20 mg PO QDAY 09/27/24 tramadol 50 mg tablet 50 mg PO TID PRN pain 09/27/24 guaifenesin 100 mg/5 mL oral liquid 200 mg PO Q4H PRN cough 12/28/24 melatonin 3 mg capsule 3 mg PO HS PRN sleep 12/28/24 simethicone 125 mg chewable tablet (Mylanta Gas) 125 mg PO QD-BID PRN abdominal distention 12/28/24 ascorbic acid (vitamin C) 500 mg capsule 500 mg PO DAILY supplement 01/20/25 carbidopa 25 mg-levodopa 100 mg tablet (Dhivy) 1.5 tab PO TID parkinson 01/20/25 cholecalciferol (vitamin D3) 50 mcg (2,000 unit) capsule 50 mcg PO DAILY supplement 01/20/25 cyanocobalamin (vitamin B-12) 5,000 mcg capsule 5,000 mcg PO DAILY supplement 01/20/25 mirabegron 50 mg tablet,extended release 24 hr (Myrbetriq) 50 mg PO DAILY bladder 01/20/25 nirmatrelvir 300 mg (150 mg x2)-ritonavir 100 mg tablet,dose pack (Paxlovid) See Rx Instructions PO .COMPLEX 01/20/25 aspirin 81 mg tablet,delayed release 81 mg PO BREAKFAST #0 tabs 01/25/25 rivaroxaban 10 mg tablet (Xarelto) 10 mg PO DAILY@0600 9 days #0 tabs 01/25/25
[2025-01-25 10:36] VITALS: BP 113/52; PULSE 83; RESP 16; TEMP 36.9; O2SAT 98
[2025-01-25] MEDS: Aspirin E.C. 81 MG Tablet PO (10:38)
[2025-01-25] MEDS: Ensure Surgery 237 ML LIQUID PO (10:38)
--- NOTE | 2025-01-25 11:57 | CASEMGMT ---
Discharge Planning Discharge orders, signed med list, covid results, and transport time sent via [facility] to [facility]. Physicians will transport pt by cot at 12:30p. Nursing, SW, pt, and her daughter/POA (Palmira) updated. Frida Santamaria DC Planning Asst.
--- NOTE | 2025-01-25 12:10 | CASEMGMT ---
Social Work Precert has been obtained.? Physician updated and pt is ready for discharge today.? DCA notified of discharge readiness. DCA to complete all arrangements and notifications. Disposition: [facility]?, skilled level of care SANCHEZ Mackenzie
--- NOTE | 2025-01-25 14:49 | DS.PCM_ITS ---
Providers Date of Admission: 01/20/25 Primary Care Physician: Tressa Rosales Consultations 01/20/25 01:06 Consult: Orthopedics Routine Consulting Provider: Braulio Tijerina Reason for Consult: Impacted Femoral Neck Fracture after Fall. EMERGENT Consult: No MD Notified: Yes Date Notified: 01/20/25 Time Notified: 01:07 Method of Notification: ED Physician Initiated Reason For Visit: FALL WITH RIGHT HIP FRACTURE Diagnosis Discharge Diagnosis (1) Closed hip fracture: Status: Acute Code(s): S72.009A - Fracture of unspecified part of neck of unspecified femur, initial encounter for closed fracture Qualifiers: Encounter type: initial encounter Laterality: left Qualified Code(s): S72.002A - Fracture of unspecified part of neck of left femur, initial encounter for closed fracture (2) Metacarpal bone fracture: Status: Acute Code(s): S62.309A - Unspecified fracture of unspecified metacarpal bone, initial encounter for closed fracture Qualifiers: Encounter type: initial encounter Metacarpal bone: unspecified metacarpal Fracture type: closed Metacarpal location: shaft Fracture alignment: nondisplaced Qualified Code(s): S62.359A - Nondisplaced fracture of shaft of unspecified metacarpal bone, initial encounter for closed fracture (3) COVID-19: Status: Acute Code(s): U07.1 - COVID-19 Medications at Discharge Home Medications acetaminophen 325 mg capsule 650 mg PO Q6H PRN fever or pain 05/01/23 atorvastatin 40 mg tablet 40 mg PO QHS hld 05/01/23 polyethylene glycol 3350 17 gram/dose oral powder (ClearLax) 17 g PO DAILY 05/01/23 psyllium husk 3.4 gram/5.4 gram oral powder (Stacie-Mucil) 1 tbsp PO DAILY 05/01/23 alendronate 70 mg tablet 70 mg PO QWEEK osteoporosis 09/27/24 carbidopa 25 mg-levodopa 100 mg tablet 2 tab PO DAILY parkinson 09/27/24 celecoxib 200 mg capsule 200 mg PO QDAY 09/27/24 duloxetine 20 mg capsule,delayed release 20 mg PO QDAY 09/27/24 tramadol 50 mg tablet 50 mg PO TID PRN pain 09/27/24 guaifenesin 100 mg/5 mL oral liquid 200 mg PO Q4H PRN cough 12/28/24 melatonin 3 mg capsule 3 mg PO HS PRN sleep 12/28/24 simethicone 125 mg chewable tablet (Mylanta Gas) 125 mg PO QD-BID PRN abdominal distention 12/28/24 ascorbic acid (vitamin C) 500 mg capsule 500 mg PO DAILY supplement 01/20/25 carbidopa 25 mg-levodopa 100 mg tablet (Dhivy) 1.5 tab PO TID parkinson 01/20/25 cholecalciferol (vitamin D3) 50 mcg (2,000 unit) capsule 50 mcg PO DAILY supplement 01/20/25 cyanocobalamin (vitamin B-12) 5,000 mcg capsule 5,000 mcg PO DAILY supplement 01/20/25 mirabegron 50 mg tablet,extended release 24 hr (Myrbetriq) 50 mg PO DAILY bladder 01/20/25 nirmatrelvir 300 mg (150 mg x2)-ritonavir 100 mg tablet,dose pack (Paxlovid) See Rx Instructions PO .COMPLEX 01/20/25 aspirin 81 mg tablet,delayed release 81 mg PO BREAKFAST #0 tabs 01/25/25 rivaroxaban 10 mg tablet (Xarelto) 10 mg PO DAILY@0600 9 days #0 tabs 01/25/25 Hospital Course Operations - (Right hip endoprosthesis) Procedures None Summary of Care Provided Minutes Spent on Discharge: 35 Hospital Course: Per HPI: DAGOBERTO COHN, is a 84 F with a past medical history of essential hypertension; currently not on treatment, hyperlipidemia; on atorvastatin, former tobacco abuse; with subsequent COPD and pulmonary hypertension, CAD; with RCA stent at [facility] in [place] (2009) and subsequent inferior wall ST elevation PR s/p RCA stent with cardiogenic shock and cardiac arrest x 3 (2021) on baby aspirin daily, history of nonrheumatic mitral/tricuspid valve insufficiency, Parkinson's disease; on carbidopa-levodopa 3 times daily, fibromyalgia, depression; on duloxetine, history of argyria (bluish skin discoloration); attributed to taking colloidal silver for protracted period of time, OAB; on mirabegron, chronic constipation; on polyethylene glycol daily plus simethicone twice daily as needed, history of gout; currently not on treatment, osteoporosis; on alendronate weekly, OA; on celecoxib plus tramadol 3 times daily as needed and recently diagnosed COVID-19 who was transferred from [facility] after she was diagnosed with an impacted Right femoral neck fracture in the setting of already being on nirmatrelvir-ritonavir. According to the records the patient was at her ECF when she sustained a mechanical fall onto her Right side with subsequent inability to ambulate. She was noted to have a scalp hematoma with a metacarpal fracture of her Right hand but she denied LOC with her fall. Dr. [place] of [facility] spoke to Dr. Tijerina of the orthopedic service here who recommended admission to the hospitalist service with formal consultation pending in the a.m. for ORIF. She was then admitted to the general medical floor for ongoing care for stay that is expected to extend beyond 2 midnights. Hospital Course: # Impacted right intertrochanteric fracture of the femoral neck and metacarpal fracture right hand status post repair 01/20/2025 -After mechanical fall at F -Ortho consulted -Patient n.p.o. -Pain control/supportive care -PT/OT postop 01/21/2025: PT/OT pending pre-CERT, she is weightbearing as tolerated and nonweightbearing on her wrist 01/22/2025: Awaiting pre-CERT, hemoglobin has dropped but will recheck in the morning 01/23/2025: Awaiting pre-CERT, hemoglobin is 8.6 which is several points lower than admission however her her hemoglobin tends to run low at times. Will check iron studies today 01/24/2025: Iron studies were unremarkable, will recheck hemoglobin this afternoon, if she drops below 8 given her coronary artery disease, can transfuse 01/25/2025: She received priesthood today I discussed with her the plan for discharge she expressed understanding of the risks and benefits of going to the shelter and would like to go today. Hemoglobin has stabilized this was likely due to blood loss during surgery followed by IV fluid administration. She will be weightbearing as tolerated on her operative right lower extremity she also has a metacarpal fracture in her right hand which should be nonweightbearing. She will be on Xarelto for 9 more days and then transition to aspirin 81 mg p.o. twice daily for 2 weeks and then she can go down to her daily aspirin dosing # Parkinson's disease - continue home Sinemet - supportive care #Hx of CAD -w/ previous chronically on aspirin and statin -Continue home medications # Elevated trop - Troponin of 27, 29, and then 28 - No chest pain, fall was mechanical, no significant elevations or concern for ongoing/active process # Recent COVID diagnosis - Supportive care -Reports symptoms started Thursday and she was diagnosed on Thursday, has no shortness of breath or cough or respiratory complaints - Currently doing well on room air # History of fibromyalgia - Continue Cymbalta DVT: Xarelto Weight / BMI Weight Weight: 166 lb 14.239 oz Body Mass Index (BMI) 30.7 ABG / Lab / Microbiology Data 01/25/25 06:43 01/24/25 07:36 Laboratory: Laboratory Results - last 24 hr 01/25/25 06:43: WBC 8.6, RBC 3.01 L, Hgb 8.4 L, Hct 24.9 L, MCV 82.7, MCH 27.9, MCHC 33.7, RDW Std Deviation 40.2, RDW Coeff of Aleena 13.2, Plt Count 362, MPV 8.7 Microbiology: Microbiology 01/25/25 10:30 Nasal Secretion SARS-CoV-2 Antigen (Rapid) - Final D/C Instructions DC O2, CPAP, BIPAP Needs Home O2 Discharge instructions: No Meaningful Use Info Meaningful Use Meaningful Use Diagnoses (Choose all that apply): None applicable Discharge Plan Admission Admit Date/Time: 01/20/25 01:09 Attending Provider: Davian Kelly Primary Care Provider: Tressa Rosales Consulting Providers: Braulio Tijerina; Stephan Martel; Darline Lundy Discharge Orders/Prescriptions Prescriptions: New Xarelto 10 mg Tablet 10 mg PO DAILY@0600 9 Days Qty: 0 0RF aspirin 81 mg Tablet,Delayed Release (Dr/Ec) 81 mg PO BREAKFAST Qty: 0 0RF Rx Instructions: Once xarelto is completed, start ASA 81 mg BID for 2 weeks, then resume daily dosing Continued alendronate 70 mg tablet 70 mg PO QWEEK duloxetine 20 mg capsule,delayed release(DR/EC) 20 mg PO QDAY celecoxib 200 mg capsule 200 mg PO QDAY carbidopa-levodopa 25-100 mg tablet 2 tab PO DAILY tramadol 50 mg tablet 50 mg PO TID PRN (Reason: pain) guaifenesin 100 mg/5 mL liquid 200 mg PO Q4H PRN (Reason: cough) simethicone [Mylanta Gas] 125 mg tablet,chewable 125 mg PO QD-BID PRN (Reason: abdominal distention) melatonin 3 mg capsule 3 mg PO HS PRN (Reason: sleep) atorvastatin 40 mg tablet 40 mg PO QHS polyethylene glycol 3350 [ClearLax] 17 gram/dose powder 17 g PO DAILY Stacie-Mucil 3.4 gram/5.4 gram powder 1 tbsp PO DAILY Rx Instructions: mix into at least 8 oz of water or juice before administering acetaminophen 325 mg capsule 650 mg PO Q6H PRN (Reason: fever or pain) Paxlovid 300 mg (150 mg x 2)-100 mg tablets,dose pack See Rx Instructions .ROUTE .COMPLEX Rx Instructions: take TWO 150 mg tablets of nirmatrelvir with ONE 100 mg tablet of ritonavir twice daily for 5 days carbidopa-levodopa [Dhivy] 25-100 mg tablet 1.5 tab PO TID mirabegron [Myrbetriq] 50 mg tablet extended release 24 hr 50 mg PO DAILY cyanocobalamin (vitamin B-12) 5,000 mcg capsule 5,000 mcg PO DAILY ascorbic acid (vitamin C) 500 mg capsule 500 mg PO DAILY cholecalciferol (vitamin D3) 50 mcg (2,000 unit) capsule 50 mcg PO DAILY Discontinued aspirin [Adult Aspirin Regimen] 81 mg tablet,delayed release (DR/EC) 81 mg PO DAILY Referrals / Follow Up: Braulio Tijerina MD [Med Staff - Active Staff, Orthopedics] - Within 2 Weeks Tressa Rosales [Primary Care Provider, Medical] Disposition Disposition (needs filled in before D/C Order can be placed): [facility] Facility Charges/Coding Visit Charges Inpatient E&M: 07158 Disch Hosp >30min
== END 2025-01-25 13:00 | disposition skilled nursing facility (03) | DRG 521 ==
PROVIDERS: Internal Medicine; Specialist; Admitting Provider Internal Medicine; PCP Internal Medicine Geriatric Medicine; Visit Provider Family Medicine
PROC: 0SRR01Z Replacement of Right Hip Joint, Femoral Surface with Metal Synthetic Substitute, Open Approach (ICD-10-PCS; CPT 27125; principal; 2025-01-20 13:55)
DX: M80.051A Age-related osteoporosis with current pathological fracture, right femur, initial encounter for fracture (principal); U07.1 COVID-19; I27.20 Pulmonary hypertension, unspecified; G20.A1 Parkinson's disease without dyskinesia, without mention of fluctuations; J43.9 Emphysema, unspecified; F32.A Depression, unspecified; I08.1 Rheumatic disorders of both mitral and tricuspid valves; Z68.30 Body mass index [BMI] 30.0-30.9, adult; S62.344A Nondisplaced fracture of base of fourth metacarpal bone, right hand, initial encounter for closed fracture; S00.03XA Contusion of scalp, initial encounter; I25.10 Atherosclerotic heart disease of native coronary artery without angina pectoris; E78.5 Hyperlipidemia, unspecified; M79.7 Fibromyalgia; M19.90 Unspecified osteoarthritis, unspecified site; W18.30XA Fall on same level, unspecified, initial encounter; I25.2 Old myocardial infarction; R79.89 Other specified abnormal findings of blood chemistry; E66.811 Obesity, class 1; Z79.82 Long term (current) use of aspirin; Z79.01 Long term (current) use of anticoagulants; Z95.5 Presence of coronary angioplasty implant and graft; Z87.891 Personal history of nicotine dependence
CPT/HCPCS: 36415; 73502; 76000; 80048; 80053; 81001; 82607; 82728; 82746; 83540; 83550; 84100; 84443; 84484; 85014; 85018; 85025; 85027; 86850; 86900; 86901; 87811; 88305; 88311; 93005; 94668; 97110; 97116; 97163; 97166; 97530; 97535; C1776; A4216; J2405

== ENCOUNTER 2025-02-28 16:15 | Inpatient (IN) | payer MEDICARE, MEDICAID, SELFPAY ==
[2025-02-28] VITALS (7 sets, daily range): BP systolic 102–116; BP diastolic 40–67; PULSE 79–93; RESP 14–22; TEMP 36.7–36.9; O2SAT 94–100; BMI 30.2; BMI 29.7
--- NOTE | 2025-02-28 17:06 | EX.ED.DYSGE1 ---
HPI History of Present Illness Chief Complaint: Wound Narrative Narrative: Chief complaint and HPI: 84-year-old female with past medical history of fibromyalgia, CAD, HTN, Parkinson's disease with history of right hip subcapital femoral neck fracture requiring right hip endoprosthesis with Dr. Tijerina on 01/20/2025 presents for evaluation of right hip wound infection. Patient states she was doing well from the surgery until Thursday when she started noticing erythema, increased pain, and drainage from the surgical site in her right hip. Patient states she was seen in the orthopedic office today for this in which they cultured it. She states while driving they received a phone call stating they needed to come to the ED. Patient denies any fever, nausea, vomiting, numbness or tingling. Review of systems: See HPI Medications: As listed on the chart Allergies: As listed on the chart PFSH: Per chart Vital signs: As listed on the chart. Reviewed. Physical exam: Gen: A&O x3, NAD Eyes: No sclera icterus, conjunctiva clear ENT: Mildly dry mucous membranes CV: RRR, no murmurs, no peripheral edema Resp: Lungs CTA BL, no w/r/c GI: Abd soft, non-distended, non-tender, no r/r/g Musc: Moves all extremities, DP/PT pulses +2 bilaterally, good capillary refill, patient's surgical incision of the right hip is mildly erythematous and tender to palpation, there is 2 areas of the incision that are open and draining yellow tinge/purulent material. Skin: Warm, dry Neuro: Alert, oriented, grossly intact, sensation intact Psych: Cooperative, appropriate mood and affect [facility] Medical History Nocturia Urge incontinence Overactive bladder Former tobacco use Depression Hypertension Fall CHI (closed head injury) Presence of stent in coronary artery (~12/22/21) Atherosclerotic heart disease of [place] coronary artery without angina pectoris ST elevation myocardial infarction (STEMI) of inferior wall (~12/22/21) Essential (primary) hypertension Parkinsons disease Urgency of urination Gout Cardiogenic shock Non-rheumatic mitral regurgitation Non-rheumatic tricuspid valve insufficiency Pulmonary hypertension Emphysema with chronic bronchitis Fibromyalgia Hyperlipidemia CAD (coronary artery disease) Bladder spasms Edema, lower extremity Myocardial infarction Home Medications ?Medication ?Instructions ?Recorded ?Last Taken ?Type acetaminophen 325 mg capsule 650 mg PO Q6H PRN fever or pain 05/01/23 04/29/23 History atorvastatin 40 mg tablet 40 mg PO QHS hld 05/01/23 04/30/23 History polyethylene glycol 3350 17 17 g PO DAILY 05/01/23 05/01/23 History gram/dose oral powder (ClearLax) psyllium husk 3.4 gram/5.4 gram 1 tbsp PO DAILY 05/01/23 04/30/23 History oral powder (Stacie-Mucil) alendronate 70 mg tablet 70 mg PO QWEEK osteoporosis 09/27/24 Unknown History carbidopa 25 mg-levodopa 100 mg 2 tab PO DAILY parkinson 09/27/24 Unknown History tablet celecoxib 200 mg capsule 200 mg PO QDAY 09/27/24 Unknown History duloxetine 20 mg capsule,delayed 20 mg PO QDAY 09/27/24 Unknown History release tramadol 50 mg tablet 50 mg PO TID PRN pain 09/27/24 Unknown History guaifenesin 100 mg/5 mL oral liquid 200 mg PO Q4H PRN cough 12/28/24 Unknown History melatonin 3 mg capsule 3 mg PO HS PRN sleep 12/28/24 Unknown History simethicone 125 mg chewable tablet 125 mg PO QD-BID PRN abdominal 12/28/24 Unknown History (Mylanta Gas) distention ascorbic acid (vitamin C) 500 mg 500 mg PO DAILY supplement 01/20/25 Unknown History capsule carbidopa 25 mg-levodopa 100 mg 1.5 tab PO TID parkinson 01/20/25 Unknown History tablet (Dhivy) cholecalciferol (vitamin D3) 50 50 mcg PO DAILY supplement 01/20/25 Unknown History mcg (2,000 unit) capsule cyanocobalamin (vitamin B-12) 5,000 mcg PO DAILY supplement 01/20/25 Unknown History 5,000 mcg capsule mirabegron 50 mg tablet,extended 50 mg PO DAILY bladder 01/20/25 Unknown History release 24 hr (Myrbetriq) aspirin 81 mg tablet,delayed 81 mg PO BREAKFAST #0 tabs 01/25/25 Unknown Rx release acetaminophen 500 mg tablet 500 mg PO Q6H PRN 02/15/25 Unknown History (Tylenol Extra Strength) ferrous sulfate 325 mg (65 mg 325 mg PO QDAY 02/15/25 Unknown History iron) tablet (FeroSul) Allergy/AdvReac Type Severity Reaction Status Date / Time oxycodone (From Percocet) Allergy Severe Hives Verified 02/28/25 16:15 Family History Father Heart disease Surgical History S/P appendectomy History of hysterectomy History of ankle surgery Presence of coronary angioplasty implant and graft Social History household members: friend(s) Smoking Status: Former smoker pack-years: 30 Tobacco: How many years used: 30 how long ago did patient quit smoking: Quit 20+ years prior. alcohol intake: current alcohol intake frequency: holidays/special occasions only substance use type: does not use caffeine: Yes Type: coffee Number of servings: 2 EXAM Physical Exam Const Vital Signs: 02/28/25 16:16 02/28/25 16:18 02/28/25 17:18 Temperature 98.5 F 98.5 F 98.1 F Temperature Source Oral Oral Oral Pulse Rate 79 88 88 Respiratory Rate 18 18 16 Blood Pressure 102/49 L 109/56 L 116/43 L Blood Pressure Mean 66 73 67 Pulse Ox 100 100 94 Oxygen Delivery Method Room Air Room Air Room Air 02/28/25 18:00 Temperature 98.2 F Temperature Source Oral Pulse Rate 89 Respiratory Rate 14 Blood Pressure 112/43 L Blood Pressure Mean 66 Pulse Ox 97 Oxygen Delivery Method Room Air MDM MDM MDM Narrative Medical decision making narrative: 84-year-old female with past medical history of fibromyalgia, CAD, HTN, Parkinson's disease with history of right hip subcapital femoral neck fracture requiring right hip endoprosthesis with Dr. Tijerina on 01/20/2025 presents for evaluation of right hip wound infection. Patient states she was doing well from the surgery until Thursday when she started noticing erythema, increased pain, and drainage from the surgical site in her right hip. Patient states she was seen in the orthopedic office today for this in which they cultured it. She states while driving they received a phone call stating they needed to come to the ED. On presentation, patient no acute distress. Afebrile. See physical exam findings. Differential diagnosis includes but is not limited to surgical site infection, abscess, hardware infection, osteomyelitis. On chart review, patient did have a culture of the hip performed. Currently pending. Basic labs will be obtained with blood cultures. NS bolus, vancomycin, Zosyn ordered for infection. Will reach out to Dr. Tijerina's team. I discussed the patient with Dr. Tijerina. Patient will need admission to medicine with IV antibiotics. CBC with leukocytosis of 19.1. Patient has baseline anemia of 9.5. Platelets unremarkable. BMP without DAMIAN. Lactic acid unremarkable. X-ray of the hip was personally viewed and interpreted by nd, ED physician. Arthroplasty in place without any fracture. Soft tissue air Concerning for infection. Radiology in agreement. Patient already received antibiotics. Patient will warrant admission. Patient discussed with the hospitalist who accepted admission. Patient was updated of all results and the plan. Impression: 1. Right hip surgical site infection 2. Recent right hip surgery Lab Data Labs: Laboratory Results - last 24 hr 02/28/25 16:50 WBC 19.1 H RBC 3.60 L Hgb 9.5 L Hct 31.2 L MCV 86.7 MCH 26.4 L MCHC 30.4 L RDW Std Deviation 44.2 H RDW Coeff of Aleena 13.9 Plt Count 416 MPV 8.4 Immature Gran % (Auto) 0.700 Neut % (Auto) 76.6 H Lymph % (Auto) 10.3 L [place] % (Auto) 10.9 H Eos % (Auto) 1.2 Baso % (Auto) 0.3 Absolute Neuts (auto) 14.6 H Absolute Lymphs (auto) 1.96 Nucleated RBC % 0 Differential Comment SCANNED Sodium 134 Potassium 3.8 Chloride 100 Carbon Dioxide 23.0 Anion Gap 11 BUN 20 H Creatinine 0.95 Estim Creat Clear Calc 42.57 L Est GFR (MDRD) Non-Af 59 L BUN/Creatinine Ratio 20.9 H Glucose 103 H Lactic Acid 1.9 Calcium 8.4 Radiography Diagnostic Testing: Clinical Impression(s) from Imaging Studies Hip/Pelvis X-Ray 02/28/25 17:14 IMPRESSION: Soft tissue air adjacent to a right hip arthroplasty possibly representing infection. Additional findings above. Reading Location: [address] Discharge Plan Triage Chief Complaint: Wound ED Provider: Irineo Suh Dx/Rx/DC Orders Prescriptions: No Action alendronate 70 mg tablet 70 mg PO QWEEK duloxetine 20 mg capsule,delayed release(DR/EC) 20 mg PO QDAY celecoxib 200 mg capsule 200 mg PO QDAY carbidopa-levodopa 25-100 mg tablet 2 tab PO DAILY tramadol 50 mg tablet 50 mg PO TID PRN (Reason: pain) guaifenesin 100 mg/5 mL liquid 200 mg PO Q4H PRN (Reason: cough) simethicone [Mylanta Gas] 125 mg tablet,chewable 125 mg PO QD-BID PRN (Reason: abdominal distention) melatonin 3 mg capsule 3 mg PO HS PRN (Reason: sleep) acetaminophen [Tylenol Extra Strength] 500 mg tablet 500 mg PO Q6H PRN ferrous sulfate [FeroSul] 325 mg (65 mg iron) tablet 325 mg PO QDAY atorvastatin 40 mg tablet 40 mg PO QHS polyethylene glycol 3350 [ClearLax] 17 gram/dose powder 17 g PO DAILY Stacie-Mucil 3.4 gram/5.4 gram powder 1 tbsp PO DAILY Rx Instructions: mix into at least 8 oz of water or juice before administering acetaminophen 325 mg capsule 650 mg PO Q6H PRN (Reason: fever or pain) carbidopa-levodopa [Dhivy] 25-100 mg tablet 1.5 tab PO TID mirabegron [Myrbetriq] 50 mg tablet extended release 24 hr 50 mg PO DAILY cyanocobalamin (vitamin B-12) 5,000 mcg capsule 5,000 mcg PO DAILY ascorbic acid (vitamin C) 500 mg capsule 500 mg PO DAILY cholecalciferol (vitamin D3) 50 mcg (2,000 unit) capsule 50 mcg PO DAILY aspirin 81 mg Tablet,Delayed Release (Dr/Ec) 81 mg PO BREAKFAST Qty: 0 0RF Rx Instructions: Once xarelto is completed, start ASA 81 mg BID for 2 weeks, then resume daily dosing Primary Care Provider: Tressa Conn Referrals: Tressa Rosales OLS [[facility], Medical] Print Language: Czech
[2025-02-28 17:11] LABS: Hematocrit 31.2 % (37-47); Hemoglobin 9.5 g/dL (12.0-15.0); Immature Granulocytes Count 0.140 X10^3/uL (0.0-0.0); Mean Corp Hgb Conc 30.4 g/dL (32-36); Mean Corpuscular Volume 86.7 fL (81-99); Mean Platelet Vol. 8.4 fl (6.2-12.0); NRBC Flagged by Analyzer 0 % (0-5); POSITIVE DIFFERENTIAL YES; Platelet Count 416 K/mm3 (150-450); RBC Distribution Width CV 13.9 % (11.6-14.6); RBC Distribution Width SD 44.2 fl (35.1-43.9); Red Blood Count 3.60 M/mm3 (4.2-5.4); White Blood Count 19.1 K/mm3 (4.4-11.0)
[2025-02-28] MEDS: 0.9% Normal Saline (1000mL) 1,000 ML 1000 ML IV (17:12)
--- NOTE | 2025-02-28 17:14 | RAD_ITS ---
PROCEDURE: HIP, UNI W/ PELVIS 2-3 VIEWS 02/28/2025 REASON FOR EXAM: WOUND INFECTION TECHNIQUE: Procedure Code: [facility] Modality: DX Procedure: HIP, UNI W/ PELVIS 2-3 VIEWS Laterality: Right COMPARISON: 01/20/2025. FINDINGS: Status post right hip arthroplasty. Partially visualized left femoral internal fixation. Heterotopic calcification adjacent to the proximal left femur. [id number] degenerative changes of the left hip. Soft tissue air adjacent to the right hip prosthesis possibly representing infection. Degenerative changes of the partially visualized spine. RAD/HIP, UNI W/ Pelvis 2-3 Views IMPRESSION: Soft tissue air adjacent to a right hip arthroplasty possibly representing infe ction. Additional findings above. Reading Location: [id number]
[2025-02-28] MEDS: Piperacil/Tazobactam 3.375 GM in 0.9% Normal Saline (50mL MB+) 50 ML IV ×2 (17:17→23:05)
[2025-02-28 17:22] LABS: Differential Indicated SCAN CRITERIA MET
[2025-02-28 17:34] LABS: Anion Gap 11 (5-15); BUN 20 mg/dL (4-19); BUN/Creat Ratio 20.9 RATIO (10-20); Calcium,Total 8.4 mg/dL (7.6-11.0); Carbon Dioxide 23.0 mmol/L (21.0-32.0); Chloride 100 mmol/L (98-108); Estimated Creatinine Clearance 42.57 ml/min (50-250); Glucose 103 mg/dL (70-99); Potassium 3.8 mmol/L (3.3-5.1)
[2025-02-28] MEDS: Vancomycin HCl 2,000 MG in 0.9% Normal Saline (500mL Bag) 500 ML 250 MG IV (18:07)
[2025-02-28 18:10] LABS: Differential Comment SCANNED
--- NOTE | 2025-02-28 18:21 | HP.PCM.HOS_ITS ---
HPI - General General Date of Admission: 02/28/25 Date of Service: 02/28/25 Chief Complaint: Right hip wound infection HPI Narrative DAGOBERTO COHN, is a 84 F who presented to [facility] ED on 02/28/2025 from SNF for right hip wound infection. Patient had recent right femoral neck fracture requiring right hip endoprosthesis placement with Dr. Tijerina on 01/20. Patient remained stable postoperatively and was discharged to SNF on 01/25. She had done well at SNF until 2 days ago when she noticed erythema, increased pain and drainage from the surgical site in her right hip. She was in the orthopedic office this morning and they cultured the wound and then recommended she come to the ED for further evaluation. In the ED she was mildly hypertensive to the 100s over 50s, was otherwise afebrile, in normal sinus rhythm and stable on room air at rest. She did have leukocytosis noted on labs with WBC count 19.1. Labs were otherwise benign. Hip/pelvis x-ray showed soft tissue adjacent to the right hip arthroplasty possibly representing infection. ED physician discussed with Dr. Tijerina who that given the imaging and patient with minimal pain in the hip with movement, suspected a surgical site infection outside of the joint and recommended admission to medicine for IV antibiotics. Hospitalist was then contacted for admission. I saw the patient at bedside in the ED. Patient was mildly fatigued appearing but otherwise laying back fairly comfortably in bed, answering questions appropriately, in no acute distress. She reported only mild pain discomfort at the right hip at the site currently. Noted that any pain with movement of the right leg was more in the groin than in the hip. She denied any fevers or chills. No other acute concerns currently. Will be admitted for further management. FOR[facility]LY [facility], [facility] Medical History Nocturia Urge incontinence Overactive bladder Former tobacco use Depression Hypertension Fall CHI (closed head injury) Presence of stent in coronary artery (~12/22/21) Atherosclerotic heart disease of [place] coronary artery without angina pectoris ST elevation myocardial infarction (STEMI) of inferior wall (~12/22/21) Essential (primary) hypertension Parkinsons disease Urgency of urination Gout Cardiogenic shock Non-rheumatic mitral regurgitation Non-rheumatic tricuspid valve insufficiency Pulmonary hypertension Emphysema with chronic bronchitis Fibromyalgia Hyperlipidemia CAD (coronary artery disease) Bladder spasms Edema, lower extremity Myocardial infarction Home Medications ?Medication ?Instructions ?Recorded ?Last Taken ?Type acetaminophen 325 mg capsule 650 mg PO Q8H PRN fever o r pain 05/01/23 04/29/23 History atorvastatin 40 mg tablet 40 mg PO QHS hYPERLIPIDEMIA 05/01/23 04/30/23 History polyethylene glycol 3350 17 17 g PO DAILY PRN constipa tion 05/01/23 05/01/23 History gram/dose oral powder (ClearLax) psyllium husk 3.4 gram/5.4 gram 1 tbsp PO DAILY PRN CO NSTIPATION 05/01/23 04/30/23 History oral powder (Stacie-Mucil) alendronate 70 mg tablet 70 mg PO QWEEK osteoporosis 09/27/24 Unknown History carbidopa 25 mg-levodopa 100 mg 2 tab PO DAILY kelsey on 09/27/24 Unknown History tablet celecoxib 200 mg capsule 200 mg PO QDAY PAIN 09/27/24 Unknown History duloxetine 20 mg capsule,delayed 20 mg PO QDAY DEPRESS ION 09/27/24 Unknown History release tramadol 50 mg tablet 50 mg PO TID pain 09/27/24 U nknown History guaifenesin 100 mg/5 mL oral liquid 200 mg PO Q4H PRN cough 12/28/24 Unknown History melatonin 3 mg capsule 3 mg PO HS sleep 12/28/24 Un known History simethicone 125 mg chewable tablet 125 mg PO BID PRN a bdominal 12/28/24 Unknown History (Mylanta Gas) distention ascorbic acid (vitamin C) 500 mg 500 mg PO BID supplem ent 01/20/25 Unknown History capsule carbidopa 25 mg-levodopa 100 mg 1.5 tab PO TID kelsey on 01/20/25 Unknown History tablet (Dhivy) mirabegron 50 mg tablet,extended 50 mg PO DAILY bladde r 01/20/25 Unknown History release 24 hr (Myrbetriq) acetaminophen 500 mg tablet 500 mg PO Q8H PRN pain 09/04 Unknown History (Tylenol Extra Strength) ferrous sulfate 325 mg (65 mg 325 mg PO BID ANEMIA 09/04 Unknown History iron) tablet (FeroSul) acetaminophen 500 mg capsule 500 mg PO TID PAIN Unknown History aluminum-mag hydroxide-simethicone 10 ml PO Q4H PRN in digestion, GAS, 02/28/25 Unknown History 400 mg-400 mg-40 mg/5 mL oral susp HEARTBURN, NAUSEA (Advanced Antacid-[place]) aspirin 81 mg tablet,delayed 81 mg PO BREAKFAST ANTICO AGULANT 02/28/25 Unknown History release cephalexin 500 mg capsule 500 mg PO TID INFECTION 02/11 12/05 Unknown History ceramides 1,3,6-II (CeraVe Daily 1 applic topical LAURO Y DRY SKIN 02/28/25 Unknown History Moisturizing lotion) cholecalciferol (vitamin D3) 50 50 mcg PO DAILY SUPPLE MENT 02/28/25 Unknown History mcg (2,000 unit) capsule (D3-2000) cyanocobalamin (vitamin B-12) 500 500 mcg PO DAILY ANE SORAYA 02/28/25 Unknown History mcg tablet (Vitamin B-12) sennosides 8.6 mg tablet (Laxative 8.6 mg PO BID CONST IPATION 02/28/25 Unknown History (sennosides)) tramadol 50 mg tablet 50 mg PO DAILY PRN pain 02/11 12/05 Unknown History Allergy/AdvReac Type Severity Reaction Status Date / Time oxycodone (From Percocet) Allergy Severe Hives Verified 02/28/25 16:15 Family History Father Heart disease Surgical History S/P appendectomy History of hysterectomy History of ankle surgery Presence of coronary angioplasty implant and graft Social History household members: friend(s) Smoking Status: Former smoker pack-years: 30 Tobacco: How many years used: 30 how long ago did patient quit smoking: Quit 20+ years prior. alcohol intake: current alcohol intake frequency: holidays/special occasions only substance use type: does not use caffeine: Yes Type: coffee Number of servings: 2 ROS Constitutional Constitutional: Reports fatigue; Denies chills or fever(s) Cardiovascular Cardiovascular: Denies chest pain Respiratory/Chest Respiratory/Chest: Denies shortness of breath at rest Gastrointestinal Gastrointestinal: Denies abdominal pain Musculoskeletal Musculoskeletal: Denies arthralgias or myalgias Neurologic Neurologic: Denies dizziness, focal weakness, headache(s), numbness or tingling Vital Signs Vital Signs Vital Signs: 02/28/25 16:16 02/28/25 16:18 02/28/25 17:18 Temperature 98.5 F 98.5 F 98.1 F Temperature Source Oral Oral Oral Pulse Rate 79 88 88 Respiratory Rate 18 18 16 Blood Pressure 102/49 L 109/56 L 116/43 L Blood Pressure Mean 66 73 67 Pulse Ox 100 100 94 Oxygen Delivery Method Room Air Room Air Room Air 02/28/25 18:00 Temperature 98.2 F Temperature Source Oral Pulse Rate 89 Respiratory Rate 14 Blood Pressure 112/43 L Blood Pressure Mean 66 Pulse Ox 97 Oxygen Delivery Method Room Air Weight Weight: 75.1 kg Body Mass Index (BMI) 30.2 Physical Exam Const alert, oriented x3, no apparent distress and average body habitus Constitutional Narrative: Elderly female, carl and somewhat pale appearing, mildly fatigued appearing, otherwise sitting back fairly comfortably in bed and answering questions appropriately. General Appearance: cooperative and comfortable HEENT normocephalic, head/scalp atraumatic, hearing grossly normal bilaterally, nasal mucous membranes and turbinates normal and moist oral mucous membranes Eyes PERRL, EOMs intact bilaterally and conjunctivae normal Neck full ROM Chest inspection of chest normal Resp normal respiratory effort, normal air movement, no use of accessory muscles and clear to auscultation bilaterally Cardio regular rate, regular rhythm, no murmurs and peripheral pulses 2+ throughout GI normal to inspection, nondistended, normoactive bowel sounds, soft to palpation, non-tender and non-distended Back/Spine normal ROM Extremity Extremity Narrative: Right hip surgical incision site with mild erythema and tenderness to palpation noted. No active drainage noted. Neuro moves all extremities and no focal motor deficits Speech: speech normal Psych mental status grossly normal Results Lab / Micro Data 02/28/25 16:50 02/28/25 16:50 Labs: Laboratory Results - last 24 hr 02/28/25 16:50: WBC 19.1 H, RBC 3.60 L, Hgb 9.5 L, Hct 31.2 L, MCV 86.7, MCH 26.4 L, MCHC 30.4 L, RDW Std Deviation 44.2 H, RDW Coeff of Aleena 13.9, Plt Count 416, MPV 8.4, Immature Gran % (Auto) 0.700, Neut % (Auto) 76.6 H, Lymph % (Auto) 10.3 L, [place] % (Auto) 10.9 H, Eos % (Auto) 1.2, Baso % (Auto) 0.3, Absolute Neuts (auto) 14.6 H, Absolute Lymphs (auto) 1.96, Nucleated RBC % 0, Differential Comment SCANNED, Sodium 134, Potassium 3.8, Chloride 100, Carbon Dioxide 23.0, Anion Gap 11, BUN 20 H, Creatinine 0.95, Estim Creat Clear Calc 42.57 L, Est GFR (MDRD) Non-Af 59 L, BUN/Creatinine Ratio 20.9 H, Glucose 103 H, Lactic Acid 1.9, Calcium 8.4 Imaging Radiology Impression Hip/Pelvis X-Ray 02/28/25 17:14 IMPRESSION: Soft tissue air adjacent to a right hip arthroplasty possibly representing infection. Additional findings above. Reading Location: [address] Assessment & Plan Assessment/Plan (1) Surgical site infection: PLAN: Plan Patient is an 84-year-old female who presented [facility] ED on 02/28/2025 with right hip wound infection. 1. Right hip surgical site infection ? Admit under patient status to [facility]. Orthopedic surgery consulted. Recent right hip endoprosthesis placement done on 01/[address] Tijerina as below. Presented with erythema and drainage at surgical incision site of right hip. X- ray showed soft tissue air adjacent to right hip arthroplasty possibly representing infection. ED physician discussed with Dr. Tijerina on admit who suspected surgical incision site without joint involvement given minimal pain with movement and imaging findings. Will treat with IV vancomycin and Zosyn for now. Follow-up blood cultures and cultures drawn from wound drainage. 2. Recent right femoral neck fracture s/p right hip endoprosthesis placement ? PT/OT/case management consulted. Patient has been residing at [facility] ([facility]) since discharge from here on 01/25. Suspect she will be fine to return there on discharge. Appreciate therapy recommendations. Chronic medical conditions: ? Parkinson's disease: Stable. Continue home Sinemet. ? History of CAD with stenting, hyperlipidemia: Mildly hypotensive on admit to the 100s over 50s, improved with fluid resuscitation. Continue home aspirin and statin. ? Chronic iron deficiency anemia: Hemoglobin 9.5 on admit, was stable around 8.5-9 postoperatively in mid January. Follow-up a.m. CBC. Continue home iron supplement. ? Overactive bladder: Continue home mirabegron. ? Anxiety/depression/fibromyalgia: Continue home duloxetine. DVT prophylaxis: Lovenox CODE STATUS: DNR-CCA, DNI Expected disposition: Likely back to [facility], D Total clinical time spent by myself addressing the patient's medical issues, reviewing all the data, and collaborating with patient's care team: 77 minutes. Charges/Coding Visit Charges Inpatient E&M: 43162 Init Hosp L3
--- OUTSIDE RECORDS SUMMARY | 2025-02-28 19:46 | XMS RPT_ITS | CCD ---
Author Organization [facility] Care Team Providers Care Tunnel Man Name Role Phone Unavailable Primary Care Provider Minesh Arreguin SCREEN EXAMINER.BABY STROLLER RENTAL CLERK, Alexandra L Primary Care Provide r Rodríguez STUNT MAN, STUNT MAN-C Alexandra Primary Care Provider Rodríguez STUNT MAN, STUNT MAN-C Alexandra Referring Provider [phone] Dr. Danielle Vernon Attending Provider Dr. Law Gold Emergency Provider Dr. Jasmin Steele Admit Provider Dr. Jasmin Steele Other Provider Dr. Davian Grier Other Provider [phone] Dr. Darline Lundy Attending Provider Dr. Darline Lundy Other Provider Dr. Jaylon Boone Attending Provider Rodríguez STUNT MAN, STUNT MAN-C Alexandra Primary Care Provider Dr. Law Gold Emergency Provider Dr. Jasmin Steele Admit Provider Dr. Jasmin Steele Other Provider Dr. Davian Grier Other Provider [phone] Darline Lundy Attending Provider Dr. Darline Lundy Other Provider Dr. Jaylon Boone Attending Provider Rodríguez STEWART.BABY STROLLER RENTAL CLERK, Alexandra L Primary Care Provide r TAI, DIDI Referring Unavailable ARREGUIN, ALEXANDRA L Primary Care Unavailable TAI, DIDI Referring Unavailable ARREGUIN, ALEXANDRA L Primary Care Unavailable TAI, DIDI Referring Unavailable ARREGUIN, ALEXANDRA L Primary Care Unavailable PROVIDER, UNKNOWN Referring Unavailable ARREGUIN, ALEXANDRA L Primary Care Unavailable Arreguin STUNT MAN-C, Alexandra Primary Care Provider Arreugin STUNT MAN-C, Alexandra Referring Provider Saulo DEL RIO, Dr. Santos Attending Provider Tai STUNT MAN-C, Didi Attending Provider Tai STUNT MAN-C, Didi Referring Provider Bobby OLS, [facility] Primary Care Provider Shavonne vailable Tai STUNT MAN-C, Didi Attending Provider Tai STUNT MAN-C, Didi Referring Provider Bobby OLS, Tressa Primary Care Provider Shavonne vailable Bobby HALL, [facility] Referring Provider Dr. Danielle Arciniega MD Attending Provider Bobby HALL, Tressa Primary Care Provider Shavonne vailaDr. Danielle Phillips MD Referring Provider Dr. Danielle Vernon MD Other Provider Bobby HALL [facility] Primary Care Physician Un available Saulo DEL [...] Lilliana DEL RIO, Dr. Ramsey Nurse Practitioner [phone] Robin DEL RIO, Dr. Davian Richards Attending Physician Kamron DEL RIO, Dr. Gregorio Nurse Practitioner [phone] Martel DO, Dr. Rothman Attending Physician Shavonne vailable Robin DEL RIO, Dr. Davian Richards Nurse Practitioner Davian Kelly Attending Unavailable Braulio Tijerina Consulting Unavailable Bobby OLS, Tressa Primary Care Unavailab Stephan Urrutia Admitting Unavailable Stephan Martel Consulting Unavailable Darline Lundy Consulting Unavailable Davian Kelly Consulting Unavailable Tai STUNT MAN, Didi Referring Unavailable Tai STUNT MAN, Didi Attending Unavailable Bobby OLS, Tressa Primary [...] Prado Attending Unavailable SauloDanielle Attending Unavailable Rodríguez STUNT MAN, Alexandra Primary Care Unavailable Rodríguez STUNT MAN, Alexandra Referring Unavailable Danielle Vernon Attending Unavailable Bobby OLS, Tressa Referring Unavailab le Bobby OLS, Tressa Primary Care Unavailab le Bobby OLS, Tressa Referring Unavailab le Bobby OLS, Tressa Primary Care Unavailab Alexandria Prado Attending Unavailable Stephan Martel Attending Unavailable SauloDanielle Attending Unavailable Bobby OLS, Tressa Primary [facility] Unavailab le Danielle Vernon Consulting Unavailable Danielle Vernon Referring Unavailable Danielle Vernon Attending Unavailable Tressa Alan Primary [facility] Unavailab le Allergies Allergy Classification Reported Allergen(s) Allergy Type Date of Onset Reaction(s) Facility Acetaminophen / oxyCODONE (1 source) Acetaminophen / oxyCODONE; Translations: [OXYCODONE-ACETAM INOPHEN] Drug Allergy 3 [facility] (20 sources) Acetaminophen / oxyCODONE; Translations: [OXYCODONE-ACETAM INOPHEN] Drug Allergy 3 Rash, Itching [facility] (8 sources) oxyCODONE Drug Allergy 3 [facility] (4 sources) ARIPiprazole; Translations: [ARIPIPRAZOLE] Drug Allergy 5 [facility] (4 sources) Haloperidol; Translations: [HALOPERIDOL] Drug Allergy 5 [facility] (4 sources) Metoclopramide; Translations: [METOCLOPRAMIDE] Drug Allergy 5 [facility] (4 sources) Prochlorperazine; Translations: [PROCHLORPERAZINE ] Drug Allergy 5 [facility] (4 sources) Promethazine; Translations: [PROMETHAZINE] Drug Allergy 5 [facility] (1 source) OLANZapine; Translations: [OLANZAPINE] Drug Allergy 5 [facility] (1 source) oxyCODONE Drug Allergy 5 [facility] Repository Medications Current Medications Medication Drug Class(es) [...] Start: 01-20-2025 take 1 capsule by mo [facility] once daily Start: 05-01-2023 End: 03-16-2024 take 1 tablet by mouth twice daily Ascorbic Acid (Vitamin C) (C-500) 500 mg tablet Discontinued 500 mg PO TWICE A DAY May 01, 2023 1:00am March 16, 2024 10:31am Comment on above: [facility] two [facility]. aspirin 81 mg [...] Start: 12-29-2022 take 2 tablets by mo [facility] three times daily Carbidopa-Levodopa Active 2 TABLET [...] Comment on above: Take 1 tablet by [facility] four times daily. Take 4 tablets [...] Start: 01-20-2025 take 1 capsule by mo [facility] once daily Start: 12-28-2024 End: 01-20-2025 Mecobalamin [...] 11:21am docusate sodium 50 mg / sennosides, nursing home 8.6 mg oral tablet (19 sources) Start: [...] reveals residual T wave inversion from recent [place] Coronary atherosclerosis and other heart disease (20 sources) Coronary arteriosclerosis; Translations: [Atherosclerotic heart disease of [place] coronary artery without angina pectoris] Onset: 07-31-2022 10-09-2022 Chronic Coronary atherosclerosis and other heart disease (20 sources) Stented coronary artery; Translations: [Presence of coronary angioplasty implant and graft] Onset: 12-12-2021 07-25-2022 Episodic Comment on above: PTCA/FLOYD Mid-distal RCA-PCI/FLOYD 2.09p00te @ [facility] 12/22/21; Prox/distal RCA 2.5x30mm and 2.5x12mm @ [facility], [place] 12/20/09 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 Alexandria Lion i, MD Age/Sex: 84/F Location: [facility] Status: Signed Intake Vital Signs 12/28/24 13:11 01/20/25 01:17 02/15/25 09:47 Height 5 ft 2 in 5 ft 2 in 5 ft 2 in Weight: 166 lb 14 oz BMI 30.5 BP 130/75 H Pulse 75 Intake Visit Reasons: 4wk MED F/U Chief Complaint: myrbetriq follow up Tutoring Clinician Required: No Accompanied by: health aid Is [...] to stand on her own. 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 Normal [facility] Basic Metabolic Profile (BMP )on 01-27-2025 BUN Normal 07-30 [facility] Comment on above: Result Comment: Supa eubanks via OM: Ordered Performed By: #### L 503.0106, BTS, L500.4050, L100.0100, L501.9520 #### [facility] [address] [place], [address] BUN/CRE Normal 01-30 [facility] Comment on above: Result Comment: Supa eubanks via OM: Ordered Performed By: #### L 503.0106, BTS, L500.4050, L100.0100, [id number] #### [facility] [address] [place], [address] Calcium Normal 7.6-11.0 [facility] Comment on above: Result Comment: Canc elled via OM: MD Ordered Performed By: #### L 503.0106, BTS, L500.4050, L100.0100, [id number] #### [facility] [address] [place], [address] CL Normal 98-108 [facility] Comment on above: Result Comment: Canc elled via OM: MD Ordered Performed By: #### L 503.0106, BTS, L500.4050, L100.0100, [id number] #### [facility] [address] [place], [address] CO2 Normal 21.0-32.0 [facility] Comment on above: Result Comment: Canc elled via OM: MD Ordered Performed By: #### L 503.0106, BTS, L500.4050, L100.0100, [id number] #### [facility] [address] [place], [address] CREAT,SERUM Normal 0.70-1.20 [facility] Comment on above: Result Comment: Canc elled via OM: MD Ordered Performed By: #### L 503.0106, BTS, L500.4050, L100.0100, [id number] #### [facility] [address] [place], [address] eGFR Normal >60 [facility] Comment on above: Result Comment: Canc elled via OM: MD Ordered Performed By: #### L 503.0106, BTS, L500.4050, L100.0100, [id number] #### [facility] [address] [place], [address] GAP Normal 5-15 [facility] Comment on above: Result Comment: Canc elled via OM: MD Ordered Performed By: #### L 503.0106, BTS, L500.4050, L100.0100, [id number] #### [facility] [address] [place], [address] GLU Normal 70-99 [facility] Comment on above: Result Comment: Canc elled via OM: MD Ordered Performed By: #### L 503.0106, BTS, L500.4050, L100.0100, [id number] #### [facility] [address] [place], [address] Potassium Normal 3.3-5.1 [facility] Comment on above: Result Comment: Canc elled via OM: MD Ordered Performed By: #### L 503.0106, BTS, L500.4050, L100.0100, L501.9520 #### [facility] [address] [place], [address] Basic Metabolic Profile (BMP) Normal 133-145 [facility] Comment on above: Result Comment: Canc elled via OM: MD Ordered Performed By: #### L 503.0106, BTS, L500.4050, L100.0100, L501.9520 #### [facility] [address] [place], [address] CBC-Complete Blood Cnt No Di ffon 01-27-2025 HCT Normal 37-47 [facility] Comment on above: Result Comment: Canc elled via OM: Order cancelled - Patient discharged Performed By: #### L 503.0106, BTS, L500.4050, L100.0100, L501.9520 #### [facility] [address] [place], [address] HGB Normal 12.0-15.0 [facility] Comment on above: Result Comment: Canc elled via OM: Order cancelled - Patient discharged Performed By: #### L 503.0106, BTS, L500.4050, L100.0100, L501.9520 #### [facility] [address] [place], [address] MCH Normal 27.0-32.0 [facility] Comment on above: Result Comment: Canc elled via OM: Order cancelled - Patient discharged Performed By: #### L 503.0106, BTS, L500.4050, L100.0100, [id number] #### [facility] [address] [place], [address] MCHC Normal 32-36 [facility] Comment on above: Result Comment: Canc elled via OM: Order cancelled - Patient discharged Performed By: #### L 503.0106, BTS, L500.4050, L100.0100, [id number] #### [facility] [address] [place], [address] MCV Normal 81-99 [facility] Comment on above: Result Comment: Canc elled via OM: Order cancelled - Patient discharged Performed By: #### L 503.0106, BTS, L500.4050, L100.0100, [id number] #### [facility] [address] [place], [address] PLT Normal 150-450 [facility] Comment on above: Result Comment: Canc elled via OM: Order cancelled - Patient discharged Performed By: #### L 503.0106, BTS, L500.4050, L100.0100, L501.9520 #### [facility] [address] [place], [address] RBC Normal 4.2-5.4 [facility] Comment on above: Result Comment: Canc elled via OM: Order cancelled - Patient discharged Performed By: #### L 503.0106, BTS, L500.4050, L100.0100, L501.9520 #### [facility] [address] [place], [address] RDW CV Normal 11.6-14.6 [facility] Comment on above: Result Comment: Canc elled via OM: Order cancelled - Patient discharged Performed By: #### L 503.0106, BTS, L500.4050, L100.0100, L501.9520 #### [facility] [address] [place], [address] RDW SD Normal 35.1-43.9 [facility] Comment on above: Result Comment: Canc elled via OM: Order cancelled - Patient discharged Performed By: #### L 503.0106, BTS, L500.4050, L100.0100, L501.9520 #### [facility] [address] [place], [address] WBC Normal 4.4-11.0 [facility] Comment on above: Result Comment: Canc elled via OM: Order cancelled - Patient discharged Performed By: #### L 503.0106, BTS, L500.4050, L100.0100, L501.9520 #### [facility] [address] [place], [address] Surgical pathology reportOrd ered By: Debbie Corea on 01-27-2025 Surgical pathology study [facility] Basic Metabolic Profile (BMP )on 01-26-2025 BUN Normal 4-19 [facility] Comment on above: Result Comment: Canc elled via OM: MD Ordered Performed By: #### L 503.0106, BTS, L500.4050, L100.0100, L501.9520 #### [facility] [address] [place], [address] BUN/CRE Normal 10-20 [facility] Comment on above: Result Comment: Canc elled via OM: MD Ordered Performed By: #### L 503.0106, BTS, L500.4050, L100.0100, L501.9520 #### [facility] [address] [place], [address] Calcium Normal 7.6-11.0 [facility] Comment on above: Result Comment: Canc elled via OM: MD Ordered Performed By: #### L 503.0106, BTS, L500.4050, L100.0100, L501.9520 #### [facility] [address] [place], [address] CL Normal 98-108 [facility] Comment on above: Result Comment: Canc elled via OM: MD Ordered Performed By: #### L 503.0106, BTS, L500.4050, L100.0100, L501.9520 #### [facility] [address] [place], [address] CO2 Normal 21.0-32.0 [facility] Comment on above: Result Comment: Canc elled via OM: MD Ordered Performed By: #### L 503.0106, BTS, L500.4050, L100.0100, L501.9520 #### [facility] [address] [place], [address] CREAT,SERUM Normal 0.70-1.20 [facility] Comment on above: Result Comment: Canc elled via OM: MD Ordered Performed By: #### L 503.0106, BTS, L500.4050, L100.0100, L501.9520 #### [facility] [address] [place], [address] eGFR Normal >60 [facility] Comment on above: Result Comment: Canc elled via OM: MD Ordered Performed By: #### L 503.0106, BTS, L500.4050, L100.0100, L501.9520 #### [facility] [address] [place], [address] GAP Normal 5-15 [facility] Comment on above: Result Comment: Canc elled via OM: MD Ordered Performed By: #### L 503.0106, BTS, L500.4050, L100.0100, L501.9520 #### [facility] [address] [place], [address] GLU Normal 70-99 [facility] Comment on above: Result Comment: Canc elled via OM: MD Ordered Performed By: #### L 503.0106, BTS, L500.4050, L100.0100, L501.9520 #### [facility] [address] [place], [address] Potassium Normal 3.3-5.1 [facility] Comment on above: Result Comment: Canc elled via OM: MD Ordered Performed By: #### L 503.0106, BTS, L500.4050, L100.0100, L501.9520 #### [facility] [address] [place], [address] Basic Metabolic Profile (BMP) Normal 133-145 [facility] Comment on above: Result Comment: Canc elled via OM: MD Ordered Performed By: #### L 503.0106, BTS, L500.4050, L100.0100, L501.9520 #### [facility] [address] [place], [address] CBC-Complete Blood Cnt No Di ffon 01-26-2025 HCT Normal 37-47 [facility] Comment on above: Result Comment: Canc elled via OM: Order cancelled - Patient discharged Performed By: #### L 503.0106, BTS, L500.4050, L100.0100, L501.9520 #### [facility] [address] [place], [address] HGB Normal 12.0-15.0 [facility] Comment on above: Result Comment: Canc elled via OM: Order cancelled - Patient discharged Performed By: #### L 503.0106, BTS, L500.4050, L100.0100, L501.9520 #### [facility] [address] [place], [address] MCH Normal 27.0-32.0 [facility] Comment on above: Result Comment: Canc elled via OM: Order cancelled - Patient discharged Performed By: #### L 503.0106, BTS, L500.4050, L100.0100, L501.9520 #### [facility] [address] [place], [address] MCHC Normal 32-36 [facility] Comment on above: Result Comment: Canc elled via OM: Order cancelled - Patient discharged Performed By: #### L 503.0106, BTS, L500.4050, L100.0100, L501.9520 #### [facility] [address] [place], [address] MCV Normal 81-99 [facility] Comment on above: Result Comment: Canc elled via OM: Order cancelled - Patient discharged Performed By: #### L 503.0106, BTS, L500.4050, L100.0100, L501.9520 #### [facility] [address] [place], [address] PLT Normal 150-450 [facility] Comment on above: Result Comment: Canc elled via OM: Order cancelled - Patient discharged Performed By: #### L 503.0106, BTS, L500.4050, L100.0100, L501.9520 #### [facility] [address] [place], [address] RBC Normal 4.2-5.4 [facility] Comment on above: Result Comment: Canc elled via OM: Order cancelled - Patient discharged Performed By: #### L 503.0106, BTS, L500.4050, L100.0100, L501.9520 #### [facility] [address] [place], [address] RDW CV Normal 11.6-14.6 [facility] Comment on above: Result Comment: Canc elled via OM: Order cancelled - Patient discharged Performed By: #### L 503.0106, BTS, L500.4050, L100.0100, L501.9520 #### [facility] [address] [place], [address] RDW SD Normal 35.1-43.9 [facility] Comment on above: Result Comment: Canc elled via OM: Order cancelled - Patient discharged Performed By: #### L 503.0106, BTS, L500.4050, L100.0100, L501.9520 #### [facility] [address] [place], [address] WBC Normal 4.4-11.0 [facility] Comment on above: Result Comment: Canc elled via OM: Order cancelled - Patient discharged Performed By: #### L 503.0106, BTS, L500.4050, L100.0100, L501.9520 #### [facility] [address] [place], [address] Basic Metabolic Profile (BMP )on 01-25-2025 BUN Normal -19 [facility] Comment on above: Result Comment: Canc elled via OM: MD Ordered Performed By: #### L 500.2500, L100.0500 #### [facility] [address] [place], [address] BUN/CRE Normal - [facility] Comment on above: Result Comment: Canc elled via OM: MD Ordered Performed By: #### L 500.2500, L100.0500 #### [facility] [address] [place], [address] Calcium Normal 7.6-11.0 [facility] Comment on above: Result Comment: Canc elled via OM: MD Ordered Performed By: #### L 500.2500, L100.0500 #### [facility] [address] [place], [address] CL Normal 98-108 [facility] Comment on above: Result Comment: Canc elled via OM: MD Ordered Performed By: #### L 500.2500, L100.0500 #### [facility] [address] [place], [address] CO2 Normal 21.0-32.0 [facility] Comment on above: Result Comment: Canc elled via OM: MD Ordered Performed By: #### L 500.2500, L100.0500 #### [facility] [address] [place], [address] CREAT,SERUM Normal 0.70-1.20 [facility] Comment on above: Result Comment: Canc elled via OM: MD Ordered Performed By: #### L 500.2500, L100.0500 #### [facility] [address] [place], [address] eGFR Normal >60 [facility] Comment on above: Result Comment: Canc elled via OM: MD Ordered Performed By: #### L 500.2500, L100.0500 #### [facility] [address] [place], [address] GAP Normal 5-15 [facility] Comment on above: Result Comment: Canc elled via OM: MD Ordered Performed By: #### L 500.2500, L100.0500 #### [facility] [address] [place], [address] GLU Normal 70-99 [facility] Comment on above: Result Comment: Canc elled via OM: MD Ordered Performed By: #### L 500.2500, L100.0500 #### [facility] [address] [place], [address] Potassium Normal 3.3-5.1 [facility] Comment on above: Result Comment: Canc elled via OM: MD Ordered Performed By: #### L 500.2500, L100.0500 #### [facility] [address] [place], [address] Basic Metabolic Profile (BMP) Normal 133-145 [facility] Comment on above: Result Comment: Canc elled via OM: MD Ordered Performed By: #### L 500.2500, L100.0500 #### [facility] [address] [place], [address] CBC-Complete Blood Cnt No Di ffon 01-25-2025 Erythrocyte distribution width (RBC) [Ratio] 13.2 % Normal 11.6-14.6 [facility] Comment on above: Performed By: #### L 500.2500, L100.0500 #### [facility] [address] [place], [address] Hematocrit (Bld) [Volume fraction] 24.9 % Low 37-47 [facility] Comment on above: Performed By: #### L 500.2500, L100.0500 #### [facility] [address] [place], [address] Hemoglobin (Bld) [Mass/Vol] 8.4 g/dL Low 12.0-15.0 [facility] Comment on above: Performed By: #### L 500.2500, L100.0500 #### [facility] [address] [place], [address] MCH (RBC) [Entitic mass] 27.9 pg Normal 27.0-32.0 [facility] Comment on above: Performed By: #### L 500.2500, L100.0500 #### [facility] [address] [place], [address] MCHC (RBC) [Mass/Vol] 33.7 g/dL Normal 32-36 [facility] Comment on above: Performed By: #### L 500.2500, L100.0500 #### [facility] [address] [place], [address] MCV (RBC) [Entitic vol] 82.7 fL Normal 81-99 [facility] Comment on above: Performed By: #### L 500.2500, L100.0500 #### [facility] [address] [place], [address] Platelet mean volume (Bld) [Entitic vol] 8.7 fL Normal 6.2-12.0 [facility] Comment on above: Performed By: #### L 500.2500, L100.0500 #### [facility] [address] [place], [address] Platelets (Bld) [#/Vol] 362 10*3/uL Normal 150-450 [facility] Comment on above: Performed By: #### L 500.2500, L100.0500 #### [facility] [address] [place], [address] RBC (Bld) [#/Vol] 3.01 10*6/uL Low 4.2-5.4 [facility] Comment on above: Performed By: #### L 500.2500, L100.0500 #### [facility] [address] [place], [address] RDW SD 40.2 fl Normal 35.1-43.9 [facility] Comment on above: Performed By: #### L 500.2500, L100.0500 #### [facility] [address] [place], [address] WBC (Bld) [#/Vol] 8.6 10*3/uL Normal 4.4-11.0 [facility] Comment on above: Performed By: #### L 500.2500, L100.0500 #### [facility] [address] [place], [address] COVID 19 AG RAPID (AUGUSTIN Carlson)on 01-25-2025 SARS-CoV-2 (COVID-19) RNA DESHAUN+probe Ql (Unsp spec) SARS-CoV-2 (COVID 19) Negative RAPID METHOD BinaxNow COVID19 Ag Card Normal [facility] Comment on above: Performed By: #### L 503.0106, BTS, L500.4050, L100.0100, L501.9520 #### [facility] [address] [place], [place], [id number] COVID-19 virus antigen assay Ordered By: Davian Kelly on 01-25-2025 SARS-CoV-2 (COVID-19) Ag IA.rapid Ql (Resp) [facility] Erythrocyte distribution wid th ratioOrdered By: Darline Lundy on 01-25-2025 Erythrocyte distribution width (RBC) [Ratio] 13.2 % 11.6-14.6 [facility] Erythrocyte distribution wid th standard deviationOrdered By: Darline Lundy on 01-25-2025 Erythrocyte distribution width (RBC) [Ratio] 40.2 fl 35.1-43.9 [facility] Hematocrit Auto (Bld) [Volum e fraction]Ordered By: Darline Lundy on 01-25-2025 Hematocrit (Bld) [Volume fraction] 24.9 % Low 37-47 [facility] Hemoglobin measurementOrdere d By: Darline Lundy on 01-25-2025 Hemoglobin (Bld) [Mass/Vol] 8.4 g/dL Low 12.0-15.0 [facility] MCV (mean corpuscular volume ) determinationOrdered By: Darline Lundy on 01-25-2025 MCV (RBC) [Entitic vol] 82.7 fL 81-99 [facility] Mean corpuscular hemoglobin (MCH) determinationOrdered By: Darline Lundy on 01-25-2025 MCH (RBC) [Entitic mass] 27.9 pg 27.0-32.0 [facility] Mean corpuscular hemoglobin concentration (MCHC) determinationOrdered By: Darline Lundy on 01-25-2025 MCHC (RBC) [Mass/Vol] 33.7 g/dL 32-36 [facility] Mean platelet volume determi nationOrdered By: Darline Lundy on 01-25-2025 Platelet mean volume (Bld) [Entitic vol] 8.7 fL 6.2-12.0 [facility] Platelet countOrdered By: Luiz Lundy on 01-25-2025 Platelets (Bld) [#/Vol] 362 10*3/uL 150-450 [facility] RBC Auto (Bld) [#/Vol]Ordere d By: Darline Lundy on 01-25-2025 RBC (Bld) [#/Vol] 3.01 10*6/uL Low 4.2-5.4 [facility] White blood cell (WBC) count Ordered By: Darline Lundy on 01-25-2025 WBC (Bld) [#/Vol] 8.6 10*3/uL 4.4-11.0 [facility] Anion gap in Serum or Plasma Ordered By: Darline Lundy on 01-24-2025 Anion gap [Moles/Vol] 9 mmol/L 08-25 [facility] BUN/creatinine ratioOrdered By: Darline Lundy on 01-24-2025 Urea nitrogen/Creatinine [Mass ratio] 28.0 mg/mg High 01-30 [facility] Basic Metabolic Profile (BMP )on 01-24-2025 BUN/CRE 28.0 RATIO High 01-30 [facility] Comment on above: Performed By: #### L 503.0106, BTS, L500.4050, L100.0100, L501.9520 #### [facility] [address] [place], [address] Calcium [Mass/Vol] 8.4 mg/dL Normal 7.6-11.0 [facility] Comment on above: Performed By: #### L 503.0106, BTS, L500.4050, L100.0100, L501.9520 #### [facility] [address] [place], [address] Chloride [Moles/Vol] 103 mmol/L Normal 98-108 [facility] Comment on above: Performed By: #### L 503.0106, BTS, L500.4050, L100.0100, L501.9520 #### [facility] [address] [place], [address] CO2 [Moles/Vol] 24.5 mmol/L Normal 21.0-32.0 [facility] Comment on above: Performed By: #### L 503.0106, BTS, L500.4050, L100.0100, L501.9520 #### [facility] [address] [place], [address] Creatinine [Mass/Vol] 0.68 mg/dL Low 0.70-1.20 [facility] Comment on above: Performed By: #### L 503.0106, BTS, L500.4050, L100.0100, L501.9520 #### [facility] [address] [place], [address] ECRCL 49.12 ml/min Low 50-250 [facility] Comment on above: Performed By: #### L 503.0106, BTS, L500.4050, L100.0100, L501.9520 #### [facility] [address] [place], [address] GAP 9 Normal 5-15 [facility] Comment on above: Performed By: #### L 503.0106, BTS, L500.4050, L100.0100, L501.9520 #### [facility] [address] [place], [address] GFR/1.73 sq M.predicted among non-blacks MDRD (S/P/Bld) [Vol rate/Area] 86 mL/min/{1.73_m2} Normal >60 [facility] Comment on above: Result Comment: mL/m in/1.73m2 CKD-EPI Creatinine Equation (2020) Performed By: #### L 503.0106, BTS, L500.4050, L100.0100, L501.9520 #### [facility] [address] [place], [address] Glucose [Mass/Vol] 97 mg/dL Normal 70-99 [facility] Comment on above: Performed By: #### L 503.0106, BTS, L500.4050, L100.0100, L501.9520 #### [facility] [address] [place], [address] Potassium [Moles/Vol] 3.9 mmol/L Normal 3.3-5.1 [facility] Comment on above: Performed By: #### L 503.0106, BTS, L500.4050, L100.0100, L501.9520 #### [facility] [address] [place], [address] Sodium [Moles/Vol] 136 mmol/L Normal 133-145 [facility] Comment on above: Performed By: #### L 503.0106, BTS, L500.4050, L100.0100, L501.9520 #### [facility] [address] [place], [address] Urea nitrogen [Mass/Vol] 19 mg/dL Normal 4-19 [facility] Comment on above: Performed By: #### L 503.0106, BTS, L500.4050, L100.0100, L501.9520 #### [facility] [address] [place], [address] CBC-Complete Blood Cnt No Di ffon 01-24-2025 Erythrocyte distribution width (RBC) [Ratio] 13.2 % Normal 11.6-14.6 [facility] Comment on above: Performed By: #### L 503.0106, BTS, L500.4050, L100.0100, L501.9520 #### [facility] [address] [place], [address] Hematocrit (Bld) [Volume fraction] 25.0 % Low 37-47 [facility] Comment on above: Performed By: #### L 503.0106, BTS, L500.4050, L100.0100, L501.9520 #### [facility] [address] [place], [address] Hemoglobin (Bld) [Mass/Vol] 8.2 g/dL Low 12.0-15.0 [facility] Comment on above: Performed By: #### L 503.0106, BTS, L500.4050, L100.0100, L501.9520 #### [facility] [address] [place], [address] MCH (RBC) [Entitic mass] 27.5 pg Normal 27.0-32.0 [facility] Comment on above: Performed By: #### L 503.0106, BTS, L500.4050, L100.0100, L501.9520 #### [facility] [address] [place], [address] MCHC (RBC) [Mass/Vol] 32.8 g/dL Normal 32-36 [facility] Comment on above: Performed By: #### L 503.0106, BTS, L500.4050, L100.0100, L501.9520 #### [facility] [address] [place], [address] MCV (RBC) [Entitic vol] 83.9 fL Normal 81-99 [facility] Comment on above: Performed By: #### L 503.0106, BTS, L500.4050, L100.0100, L501.9520 #### [facility] [address] [place], [address] Platelet mean volume (Bld) [Entitic vol] 9.1 fL Normal 6.2-12.0 [facility] Comment on above: Performed By: #### L 503.0106, BTS, L500.4050, L100.0100, L501.9520 #### [facility] [address] [place], [address] Platelets (Bld) [#/Vol] 308 10*3/uL Normal 150-450 [facility] Comment on above: Performed By: #### L 503.0106, BTS, L500.4050, L100.0100, L501.9520 #### [facility] [address] [place], [address] RBC (Bld) [#/Vol] 2.98 10*6/uL Low 4.2-5.4 [facility] Comment on above: Performed By: #### L 503.0106, BTS, L500.4050, L100.0100, L501.9520 #### [facility] [address] [place], [address] RDW SD 40.6 fl Normal 35.1-43.9 [facility] Comment on above: Performed By: #### L 503.0106, BTS, L500.4050, L100.0100, L501.9520 #### [facility] [address] [place], [address] WBC (Bld) [#/Vol] 8.6 10*3/uL Normal 4.4-11.0 [facility] Comment on above: Performed By: #### L 503.0106, BTS, L500.4050, L100.0100, L501.9520 #### [facility] [address] [place], [address] Carbon dioxide, total [Moles /volume] in Central venous bloodOrdered By: Darline Lundy on 01-24-2025 CO2 [Moles/Vol] 24.5 mmol/L 21.0-32.0 [facility] Chloride assayOrdered By: Luiz Lundy on 01-24-2025 Chloride [Moles/Vol] 103 mmol/L 98-108 [facility] Glomerular filtration rate ( GFR) estimation/1.73 sq m using serum, plasma, or whole bOrdered By: Darline Lundy on 01-24-2025 GFR/1.73 sq M.predicted among non-blacks MDRD (S/P/Bld) [Vol rate/Area] 86 mL/min/{1.73_m2} >60 [facility] Comment on above: mL/min/1.73m2 CKD-EP I Creatinine Equation (2020) HH, Hemoglobin AND Hematocri ton 01-24-2025 Hematocrit (Bld) [Volume fraction] 25.1 % Low 37-47 [facility] Comment on above: Performed By: #### L 503.0106, BTS, L500.4050, L100.0100, L501.9520 #### [facility] [address] [place], [address] Hemoglobin (Bld) [Mass/Vol] 8.5 g/dL Low 12.0-15.0 [facility] Comment on above: Performed By: #### L 503.0106, BTS, L500.4050, L100.0100, L501.9520 #### [facility] [address] [place], [address] Potassium measurement (mass/ volume)Ordered By: Darline Lundy on 01-24-2025 Potassium (Unsp spec) [Mass/Vol] 3.9 mmol/L 3.3-5.1 [facility] Serum creatinine measurement (mass/volume)Ordered By: Darline Lundy on 01-24-2025 Creatinine [Mass/Vol] 0.68 mg/dL Low 0.70-1.20 [facility] Serum glucose measurement (m ass/volume)Ordered By: Darline Lundy on 01-24-2025 Glucose [Mass/Vol] 97 mg/dL 70-99 [facility] Serum or plasma calcium taylor urement (mass/volume)Ordered By: Darline Lundy on 01-24-2025 Calcium [Mass/Vol] 8.4 mg/dL 7.6-11.0 [facility] Serum or plasma urea nitroge n measurement (mass/volume)Ordered By: Darline Lundy on 01-24-2025 Urea nitrogen [Mass/Vol] 19 mg/dL 4-19 [facility] Sodium levelOrdered By: Oscar Lundy on 01-24-2025 Sodium [Moles/Vol] 136 mmol/L 133-145 [facility] Basic Metabolic Profile (BMP )on 01-23-2025 BUN/CRE 26.3 RATIO High 10-20 [facility] Comment on above: Performed By: #### L 503.0106, BTS, L500.4050, L100.0100, L501.9520 #### [facility] [address] [place], [address] Calcium [Mass/Vol] 8.3 mg/dL Normal 7.6-11.0 [facility] Comment on above: Performed By: #### L 503.0106, BTS, L500.4050, L100.0100, L501.9520 #### [facility] [address] [place], [address] Chloride [Moles/Vol] 102 mmol/L Normal 98-108 [facility] Comment on above: Performed By: #### L 503.0106, BTS, L500.4050, L100.0100, L501.9520 #### [facility] [address] [place], [address] CO2 [Moles/Vol] 24.2 mmol/L Normal 21.0-32.0 [facility] Comment on above: Performed By: #### L 503.0106, BTS, L500.4050, L100.0100, L501.9520 #### [facility] [address] [place], [address] Creatinine [Mass/Vol] 0.61 mg/dL Low 0.70-1.20 [facility] Comment on above: Performed By: #### L 503.0106, BTS, L500.4050, L100.0100, L501.9520 #### [facility] [address] [place], [address] ECRCL 49.16 ml/min Low 50-250 [facility] Comment on above: Performed By: #### L 503.0106, BTS, L500.4050, L100.0100, L501.9520 #### [facility] [address] [place], [address] GAP 9 Normal 5-15 [facility] Comment on above: Performed By: #### L 503.0106, BTS, L500.4050, L100.0100, L501.9520 #### [facility] [address] [place], [address] GFR/1.73 sq M.predicted among non-blacks MDRD (S/P/Bld) [Vol rate/Area] 89 mL/min/{1.73_m2} Normal >60 [facility] Comment on above: Result Comment: mL/m in/1.73m2 CKD-EPI Creatinine Equation (2020) Performed By: #### L 503.0106, BTS, L500.4050, L100.0100, L501.9520 #### [facility] [address] [place], [address] Glucose [Mass/Vol] 105 mg/dL High 70-99 [facility] Comment on above: Performed By: #### L 503.0106, BTS, L500.4050, L100.0100, L501.9520 #### [facility] [address] [place], [address] Potassium [Moles/Vol] 3.8 mmol/L Normal 3.3-5.1 [facility] Comment on above: Performed By: #### L 503.0106, BTS, L500.4050, L100.0100, L501.9520 #### [facility] [address] [place], [address] Sodium [Moles/Vol] 135 mmol/L Normal 133-145 [facility] Comment on above: Performed By: #### L 503.0106, BTS, L500.4050, L100.0100, L501.9520 #### [facility] [address] [place], [address] Urea nitrogen [Mass/Vol] 16 mg/dL Normal 4-19 [facility] Comment on above: Performed By: #### L 503.0106, BTS, L500.4050, L100.0100, L501.9520 #### [facility] [address] [place], [address] CBC-Complete Blood Cnt No Di ffon 01-23-2025 Erythrocyte distribution width (RBC) [Ratio] 13.2 % Normal 11.6-14.6 [facility] Comment on above: Performed By: #### L 503.0106, BTS, L500.4050, L100.0100, L501.9520 #### [facility] [address] [place], [address] Hematocrit (Bld) [Volume fraction] 25.6 % Low 37-47 [facility] Comment on above: Performed By: #### L 503.0106, BTS, L500.4050, L100.0100, L501.9520 #### [facility] [address] [place], [address] Hemoglobin (Bld) [Mass/Vol] 8.6 g/dL Low 12.0-15.0 [facility] Comment on above: Performed By: #### L 503.0106, BTS, L500.4050, L100.0100, L501.9520 #### [facility] [address] [place], [address] MCH (RBC) [Entitic mass] 27.7 pg Normal 27.0-32.0 [facility] Comment on above: Performed By: #### L 503.0106, BTS, L500.4050, L100.0100, L501.9520 #### [facility] [address] [place], [address] MCHC (RBC) [Mass/Vol] 33.6 g/dL Normal 32-36 [facility] Comment on above: Performed By: #### L 503.0106, BTS, L500.4050, L100.0100, L501.9520 #### [facility] [address] [place], [address] MCV (RBC) [Entitic vol] 82.6 fL Normal 81-99 [facility] Comment on above: Performed By: #### L 503.0106, BTS, L500.4050, L100.0100, L501.9520 #### [facility] [address] [place], [address] Platelet mean volume (Bld) [Entitic vol] 9.2 fL Normal 6.2-12.0 [facility] Comment on above: Performed By: #### L 503.0106, BTS, L500.4050, L100.0100, L501.9520 #### [facility] [address] [place], [address] Platelets (Bld) [#/Vol] 250 10*3/uL Normal 150-450 [facility] Comment on above: Performed By: #### L 503.0106, BTS, L500.4050, L100.0100, L501.9520 #### [facility] [address] [place], [address] RBC (Bld) [#/Vol] 3.10 10*6/uL Low 4.2-5.4 [facility] Comment on above: Performed By: #### L 503.0106, BTS, L500.4050, L100.0100, L501.9520 #### [facility] [address] [place], [address] RDW SD 39.6 fl Normal 35.1-43.9 [facility] Comment on above: Performed By: #### L 503.0106, BTS, L500.4050, L100.0100, L501.9520 #### [facility] [address] [place], [address] WBC (Bld) [#/Vol] 8.6 10*3/uL Normal 4.4-11.0 [facility] Comment on above: Performed By: #### L 503.0106, BTS, L500.4050, L100.0100, L501.9520 #### [facility] [address] [place], [address] Ferritinon 01-23-2025 Ferritin [Mass/Vol] 1208 ng/mL High 22-378 [facility] Comment on above: Performed By: #### L 503.6030, L503.6550 #### [facility] [address] [place], [address] Iron measurement (mass/mass) Ordered By: Davian Kelly on 01-23-2025 Iron (Unsp spec) [Mass/Mass] 70 ug/dL 50-170 [facility] Iron+Iron Binding Capacityon 01-23-2025 TIBC 189 ug/dL Low 250-450 [facility] Comment on above: Performed By: #### L 503.6030, L503.6550 #### [facility] [address] [place], [address] No Panel InformationOrdered By: Davian Kelly on 01-23-2025 Unsaturated Iron Binding Capacity 119 ug/dL Low 228-428 [facility] Serum or plasma ferritin allison surement (mass/volume)Ordered By: Davian Kelly on 01-23-2025 Ferritin [Mass/Vol] 1208 ng/mL High 22-378 [facility] Serum or plasma iron saturat ion measurement (mass fraction)Ordered By: Davian Kelly on 01-23-2025 Iron saturation [Mass fraction] 37.0 % 13-59 [facility] Basic Metabolic Profile (BMP )on 01-22-2025 BUN/CRE 27.5 RATIO High 1020 [facility] Comment on above: Performed By: #### L 503.0106, BTS, L500.4050, L100.0100, L501.9520 #### [facility] [address] [place], [address] Calcium [Mass/Vol] 8.2 mg/dL Normal 7.6-11.0 [facility] Comment on above: Performed By: #### L 503.0106, BTS, L500.4050, L100.0100, L501.9520 #### [facility] [address] [place], [address] Chloride [Moles/Vol] 103 mmol/L Normal 98-108 [facility] Comment on above: Performed By: #### L 503.0106, BTS, L500.4050, L100.0100, L501.9520 #### [facility] [address] [place], [address] CO2 [Moles/Vol] 23.1 mmol/L Normal 21.0-32.0 [facility] Comment on above: Performed By: #### L 503.0106, BTS, L500.4050, L100.0100, L501.9520 #### [facility] [address] [place], [address] Creatinine [Mass/Vol] 0.64 mg/dL Low 0.70-1.20 [facility] Comment on above: Performed By: #### L 503.0106, BTS, L500.4050, L100.0100, L501.9520 #### [facility] [address] [place], [address] ECRCL 50.86 ml/min Normal 50-250 [facility] Comment on above: Performed By: #### L 503.0106, BTS, L500.4050, L100.0100, L501.9520 #### [facility] [address] [place], [address] GAP 10 Normal 5-15 [facility] Comment on above: Performed By: #### L 503.0106, BTS, L500.4050, L100.0100, L501.9520 #### [facility] [address] [place], [address] GFR/1.73 sq M.predicted among non-blacks MDRD (S/P/Bld) [Vol rate/Area] 88 mL/min/{1.73_m2} Normal >60 [facility] Comment on above: Result Comment: mL/m in/1.73m2 CKD-EPI Creatinine Equation (2020) Performed By: #### L 503.0106, BTS, L500.4050, L100.0100, L501.9520 #### [facility] [address] [place], [address] Glucose [Mass/Vol] 135 mg/dL High 70-99 [facility] Comment on above: Performed By: #### L 503.0106, BTS, L500.4050, L100.0100, L501.9520 #### [facility] [address] [place], [address] Potassium [Moles/Vol] 4.2 mmol/L Normal 3.3-5.1 [facility] Comment on above: Performed By: #### L 503.0106, BTS, L500.4050, L100.0100, L501.9520 #### [facility] [address] [place], [address] Sodium [Moles/Vol] 136 mmol/L Normal 133-145 [facility] Comment on above: Performed By: #### L 503.0106, BTS, L500.4050, L100.0100, L501.9520 #### [facility] [address] [place], [address] Urea nitrogen [Mass/Vol] 18 mg/dL Normal 4-19 [facility] Comment on above: Performed By: #### L 503.0106, BTS, L500.4050, L100.0100, L501.9520 #### [facility] [address] [place], [address] CBC-Complete Blood Cnt No Di ffon 01-22-2025 Erythrocyte distribution width (RBC) [Ratio] 13.0 % Normal 11.6-14.6 [facility] Comment on above: Performed By: #### L 503.0106, BTS, L500.4050, L100.0100, L501.9520 #### [facility] [address] [place], [address] Hematocrit (Bld) [Volume fraction] 26.6 % Low 37-47 [facility] Comment on above: Performed By: #### L 503.0106, BTS, L500.4050, L100.0100, L501.9520 #### [facility] [address] [place], [address] Hemoglobin (Bld) [Mass/Vol] 9.1 g/dL Low 12.0-15.0 [facility] Comment on above: Performed By: #### L 503.0106, BTS, L500.4050, L100.0100, L501.9520 #### [facility] [address] [place], [address] MCH (RBC) [Entitic mass] 27.9 pg Normal 27.0-32.0 [facility] Comment on above: Performed By: #### L 503.0106, BTS, L500.4050, L100.0100, L501.9520 #### [facility] [address] [place], [address] MCHC (RBC) [Mass/Vol] 34.2 g/dL Normal 32-36 [facility] Comment on above: Performed By: #### L 503.0106, BTS, L500.4050, L100.0100, L501.9520 #### [facility] [address] [place], [address] MCV (RBC) [Entitic vol] 81.6 fL Normal 81-99 [facility] Comment on above: Performed By: #### L 503.0106, BTS, L500.4050, L100.0100, L501.9520 #### [facility] [address] [place], [address] Platelet mean volume (Bld) [Entitic vol] 9.2 fL Normal 6.2-12.0 [facility] Comment on above: Performed By: #### L 503.0106, BTS, L500.4050, L100.0100, L501.9520 #### [facility] [address] [place], [address] Platelets (Bld) [#/Vol] 211 10*3/uL Normal 150-450 [facility] Comment on above: Performed By: #### L 503.0106, BTS, L500.4050, L100.0100, L501.9520 #### [facility] [address] [place], [address] RBC (Bld) [#/Vol] 3.26 10*6/uL Low 4.2-5.4 [facility] Comment on above: Performed By: #### L 503.0106, BTS, L500.4050, L100.0100, L501.9520 #### [facility] [address] [place], [address] RDW SD 39.3 fl Normal 35.1-43.9 [facility] Comment on above: Performed By: #### L 503.0106, BTS, L500.4050, L100.0100, L501.9520 #### [facility] [address] [place], [address] WBC (Bld) [#/Vol] 8.6 10*3/uL Normal 4.4-11.0 [facility] Comment on above: Performed By: #### L 503.0106, BTS, L500.4050, L100.0100, L501.9520 #### [facility] [address] [place], [address] Basic Metabolic Profile (BMP )on 01-21-2025 BUN/CRE 16.5 RATIO Normal 10-20 [facility] Comment on above: Performed By: #### L 503.0106, BTS, L500.4050, L100.0100, L501.9520 #### [facility] [address] [place], [address] Calcium [Mass/Vol] 7.8 mg/dL Normal 7.6-11.0 [facility] Comment on above: Performed By: #### L 503.0106, BTS, L500.4050, L100.0100, L501.9520 #### [facility] [address] [place], [address] Chloride [Moles/Vol] 103 mmol/L Normal 98-108 [facility] Comment on above: Performed By: #### L 503.0106, BTS, L500.4050, L100.0100, L501.9520 #### [facility] [address] [place], [address] CO2 [Moles/Vol] 22.5 mmol/L Normal 21.0-32.0 [facility] Comment on above: Performed By: #### L 503.0106, BTS, L500.4050, L100.0100, L501.9520 #### [facility] [address] [place], [address] Creatinine [Mass/Vol] 0.69 mg/dL Low 0.70-1.20 [facility] Comment on above: Performed By: #### L 503.0106, BTS, L500.4050, L100.0100, L501.9520 #### [facility] [address] [place], [address] ECRCL 49.36 ml/min Low 50-250 [facility] Comment on above: Performed By: #### L 503.0106, BTS, L500.4050, L100.0100, L501.9520 #### [facility] [address] [place], [address] GAP 10 Normal 5-15 [facility] Comment on above: Performed By: #### L 503.0106, BTS, L500.4050, L100.0100, L501.9520 #### [facility] [address] [place], [address] GFR/1.73 sq M.predicted among non-blacks MDRD (S/P/Bld) [Vol rate/Area] 86 mL/min/{1.73_m2} Normal >60 [facility] Comment on above: Result Comment: mL/m in/1.73m2 CKD-EPI Creatinine Equation (2020) Performed By: #### L 503.0106, BTS, L500.4050, L100.0100, L501.9520 #### [facility] [address] [place], [address] Glucose [Mass/Vol] 167 mg/dL High 70-99 [facility] Comment on above: Performed By: #### L 503.0106, BTS, L500.4050, L100.0100, L501.9520 #### [facility] [address] [place], [address] Potassium [Moles/Vol] 3.8 mmol/L Normal 3.3-5.1 [facility] Comment on above: Performed By: #### L 503.0106, BTS, L500.4050, L100.0100, L501.9520 #### [facility] [address] [place], [address] Sodium [Moles/Vol] 135 mmol/L Normal 133-145 [facility] Comment on above: Performed By: #### L 503.0106, BTS, L500.4050, L100.0100, L501.9520 #### [facility] [address] [place], [address] Urea nitrogen [Mass/Vol] 11 mg/dL Normal 4-19 [facility] Comment on above: Performed By: #### L 503.0106, BTS, L500.4050, L100.0100, L501.9520 #### [facility] [address] [place], [address] CBC-Complete Blood Cnt No Di ffon 01-21-2025 Erythrocyte distribution width (RBC) [Ratio] 13.1 % Normal 11.6-14.6 [facility] Comment on above: Performed By: #### L 503.0106, BTS, L500.4050, L100.0100, L501.9520 #### [facility] [address] [place], [address] Hematocrit (Bld) [Volume fraction] 28.9 % Low 37-47 [facility] Comment on above: Performed By: #### L 503.0106, BTS, L500.4050, L100.0100, L501.9520 #### [facility] [address] [place], [address] Hemoglobin (Bld) [Mass/Vol] 9.7 g/dL Low 12.0-15.0 [facility] Comment on above: Performed By: #### L 503.0106, BTS, L500.4050, L100.0100, L501.9520 #### [facility] [address] [place], [address] MCH (RBC) [Entitic mass] 27.6 pg Normal 27.0-32.0 [facility] Comment on above: Performed By: #### L 503.0106, BTS, L500.4050, L100.0100, L501.9520 #### [facility] [address] [place], [address] MCHC (RBC) [Mass/Vol] 33.6 g/dL Normal 32-36 [facility] Comment on above: Performed By: #### L 503.0106, BTS, L500.4050, L100.0100, L501.9520 #### [facility] [address] [place], [address] MCV (RBC) [Entitic vol] 82.3 fL Normal 81-99 [facility] Comment on above: Performed By: #### L 503.0106, BTS, L500.4050, L100.0100, L501.9520 #### [facility] [address] [place], [address] Platelet mean volume (Bld) [Entitic vol] 8.8 fL Normal 6.2-12.0 [facility] Comment on above: Performed By: #### L 503.0106, BTS, L500.4050, L100.0100, L501.9520 #### [facility] [address] [place], [address] Platelets (Bld) [#/Vol] 209 10*3/uL Normal 150-450 [facility] Comment on above: Performed By: #### L 503.0106, BTS, L500.4050, L100.0100, L501.9520 #### [facility] [address] [place], [address] RBC (Bld) [#/Vol] 3.51 10*6/uL Low 4.2-5.4 [facility] Comment on above: Performed By: #### L 503.0106, BTS, L500.4050, L100.0100, L501.9520 #### [facility] [address] [place], [address] RDW SD 39.8 fl Normal 35.1-43.9 [facility] Comment on above: Performed By: #### L 503.0106, BTS, L500.4050, L100.0100, L501.9520 #### [facility] [address] [place], [address] WBC (Bld) [#/Vol] 12.1 10*3/uL High 4.4-11.0 [facility] Comment on above: Performed By: #### L 503.0106, BTS, L500.4050, L100.0100, L501.9520 #### [facility] [address] [place], [address] Absolute lymphocyte countOrd ered By: Stephan Beard on 01-20-2025 Lymphocytes Auto (Unsp spec) [#/Vol] 0.94 10*3/uL 0.83-4.51 [facility] Absolute neutrophil countOrd ered By: Stephan Beard on 01-20-2025 Neutrophils (Bld) [#/Vol] 6.9 10*3/uL 2.0-7.7 [facility] Automated lymphocyte count a s percentage of total leukocytesOrdered By: Stephan Beard on 01-20-2025 Lymphocytes/100 WBC Auto (Unsp spec) 11.1 % Low 19-41 [facility] Basophil percentageOrdered B y: Stephan Beard on 01-20-2025 Basophils/100 WBC (Bld) 0.1 % 0-1 [facility] Bilirubin Test strip Ql (U)O rdered By: Stephan Beard on 01-20-2025 Bilirubin Ql (U) Negative Negative [facility] Bilirubin, totalOrdered By: Stephan Beard on 01-20-2025 Bilirubin [Mass/Vol] 0.63 mg/dL 0.00-1.30 [facility] CBC W/Diff, Automatedon 01-11 Absolute Lymph 0.94 X10 3/uL Normal 0.83-4.51 [facility] Comment on above: Performed By: #### L 503.0106, BTS, L500.4050, L100.0100, L501.9520 #### [facility] [address] [place], [address] Absolute Neut 6.9 X10 3/uL Normal 2.0-7.7 [facility] Comment on above: Performed By: #### L 503.0106, BTS, L500.4050, L100.0100, L501.9520 #### [facility] [address] [place], [address] Basophils/100 WBC (Bld) 0.1 % Normal 0-1 [facility] Comment on above: Performed By: #### L 503.0106, BTS, L500.4050, L100.0100, L501.9520 #### [facility] [address] [place], [address] Eosinophils/100 WBC (Bld) 0.1 % Normal 0-5 [facility] Comment on above: Performed By: #### L 503.0106, BTS, L500.4050, L100.0100, L501.9520 #### [facility] [address] [place], [address] Erythrocyte distribution width (RBC) [Ratio] 13.1 % Normal 11.6-14.6 [facility] Comment on above: Performed By: #### L 503.0106, BTS, L500.4050, L100.0100, L501.9520 #### [facility] [address] [place], [address] Hematocrit (Bld) [Volume fraction] 34.5 % Low 37-47 [facility] Comment on above: Performed By: #### L 503.0106, BTS, L500.4050, L100.0100, L501.9520 #### [facility] [address] [place], [address] Hemoglobin (Bld) [Mass/Vol] 11.1 g/dL Low 12.0-15.0 [facility] Comment on above: Performed By: #### L 503.0106, BTS, L500.4050, L100.0100, L501.9520 #### [facility] [address] [place], [address] IG% 0.400 Normal 0.0-0.9 [facility] Comment on above: Result Comment: IG% - Immature Granulocytes (promyelocytes, myelocytes and metamyelocytes) > 1% indicates that a LEFT SHIFT is Present. Performed By: #### L 503.0106, BTS, L500.4050, L100.0100, L501.9520 #### [facility] [address] [place], [address] Lymphocytes/100 WBC (Bld) 11.1 % Low 19-41 [facility] Comment on above: Performed By: #### L 503.0106, BTS, L500.4050, L100.0100, L501.9520 #### [facility] [address] [place], [address] MCH (RBC) [Entitic mass] 27.3 pg Normal 27.0-32.0 [facility] Comment on above: Performed By: #### L 503.0106, BTS, L500.4050, L100.0100, L501.9520 #### [facility] [address] [place], [address] MCHC (RBC) [Mass/Vol] 32.2 g/dL Normal 32-36 [facility] Comment on above: Performed By: #### L 503.0106, BTS, L500.4050, L100.0100, L501.9520 #### [facility] [address] [place], [address] MCV (RBC) [Entitic vol] 84.8 fL Normal 81-99 [facility] Comment on above: Performed By: #### L 503.0106, BTS, L500.4050, L100.0100, L501.9520 #### [facility] [address] [place], [address] Monocytes/100 WBC (Bld) 7.2 % Normal 0-10 [facility] Comment on above: Performed By: #### L 503.0106, BTS, L500.4050, L100.0100, L501.9520 #### [facility] [address] [place], [address] Neutrophils/100 WBC (Bld) 81.1 % High 47-70 [facility] Comment on above: Performed By: #### L 503.0106, BTS, L500.4050, L100.0100, L501.9520 #### [facility] [address] [place], [address] Nucleated RBC (Bld) [#/Vol] 0 10*3/uL Normal 0-5 [facility] Comment on above: Performed By: #### L 503.0106, BTS, L500.4050, L100.0100, L501.9520 #### [facility] [address] [place], [address] Platelet mean volume (Bld) [Entitic vol] 8.8 fL Normal 6.2-12.0 [facility] Comment on above: Performed By: #### L 503.0106, BTS, L500.4050, L100.0100, L501.9520 #### [facility] [address] [place], [address] Platelets (Bld) [#/Vol] 241 10*3/uL Normal 150-450 [facility] Comment on above: Performed By: #### L 503.0106, BTS, L500.4050, L100.0100, L501.9520 #### [facility] [address] [place], [address] RBC (Bld) [#/Vol] 4.07 10*6/uL Low 4.2-5.4 [facility] Comment on above: Performed By: #### L 503.0106, BTS, L500.4050, L100.0100, L501.9520 #### [facility] [address] [place], [address] RDW SD 40.1 fl Normal 35.1-43.9 [facility] Comment on above: Performed By: #### L 503.0106, BTS, L500.4050, L100.0100, L501.9520 #### [facility] [address] [place], [address] WBC (Bld) [#/Vol] 8.5 10*3/uL Normal 4.4-11.0 [facility] Comment on above: Performed By: #### L 503.0106, BTS, L500.4050, L100.0100, L501.9520 #### [facility] [address] [place], [address] Comprehensive Metabolic [facility] ilon 01-20-2025 Albumin [Mass/Vol] 3.6 g/dL Normal 3.4-4.8 [facility] Comment on above: Performed By: #### L 503.0106, BTS, L500.4050, L100.0100, L501.9520 #### [facility] [address] [place], [address] Albumin/Globulin [Mass ratio] 1.4 {ratio} Normal 0.9-2.4 [facility] Comment on above: Performed By: #### L 503.0106, BTS, L500.4050, L100.0100, L501.9520 #### [facility] [address] [place], [address] ALK PHOS 51 U/L Normal 35-104 [facility] Comment on above: Performed By: #### L 503.0106, BTS, L500.4050, L100.0100, L501.9520 #### [facility] [address] [place], [address] ALT [Catalytic activity/Vol] U/L Normal <=34 [facility] Comment on above: Performed By: #### L 503.0106, BTS, L500.4050, L100.0100, L501.9520 #### [facility] [address] [place], [address] AST [Catalytic activity/Vol] 19 U/L Normal <=31 [facility] Comment on above: Performed By: #### L 503.0106, BTS, L500.4050, L100.0100, L501.9520 #### [facility] [address] [place], [address] Bilirubin [Mass/Vol] 0.63 mg/dL Normal 0.00-1.30 [facility] Comment on above: Performed By: #### L 503.0106, BTS, L500.4050, L100.0100, L501.9520 #### [facility] [address] [place], [address] BUN/CRE 19.9 RATIO Normal 10-20 [facility] Comment on above: Performed By: #### L 503.0106, BTS, L500.4050, L100.0100, L501.9520 #### [facility] [address] [place], [address] Calcium [Mass/Vol] 8.2 mg/dL Normal 7.6-11.0 [facility] Comment on above: Performed By: #### L 503.0106, BTS, L500.4050, L100.0100, L501.9520 #### [facility] [address] [place], [address] Chloride [Moles/Vol] 100 mmol/L Normal 98-108 [facility] Comment on above: Performed By: #### L 503.0106, BTS, L500.4050, L100.0100, L501.9520 #### [facility] [address] [place], [address] CO2 [Moles/Vol] 21.8 mmol/L Normal 21.0-32.0 [facility] Comment on above: Performed By: #### L 503.0106, BTS, L500.4050, L100.0100, L501.9520 #### [facility] [address] [place], [address] Creatinine [Mass/Vol] 0.65 mg/dL Low 0.70-1.20 [facility] Comment on above: Performed By: #### L 503.0106, BTS, L500.4050, L100.0100, L501.9520 #### [facility] [address] [place], [address] ECRCL 50.52 ml/min Normal 50-250 [facility] Comment on above: Performed By: #### L 503.0106, BTS, L500.4050, L100.0100, L501.9520 #### [facility] [address] [place], [address] GAP 12 Normal 5-15 [facility] Comment on above: Performed By: #### L 503.0106, BTS, L500.4050, L100.0100, L501.9520 #### [facility] [address] [place], [address] GFR/1.73 sq M.predicted among non-blacks MDRD (S/P/Bld) [Vol rate/Area] 87 mL/min/{1.73_m2} Normal >60 [facility] Comment on above: Result Comment: mL/m in/1.73m2 CKD-EPI Creatinine Equation (2020) Performed By: #### L 503.0106, BTS, L500.4050, L100.0100, L501.9520 #### [facility] [address] [place], [address] Globulin (S) [Mass/Vol] 2.7 g/dL Normal 2.2-4.2 [facility] Comment on above: Performed By: #### L 503.0106, BTS, L500.4050, L100.0100, L501.9520 #### [facility] [address] [place], [address] Glucose [Mass/Vol] 98 mg/dL Normal 70-99 [facility] Comment on above: Performed By: #### L 503.0106, BTS, L500.4050, L100.0100, L501.9520 #### [facility] [address] [place], [address] Potassium [Moles/Vol] 3.5 mmol/L Normal 3.3-5.1 [facility] Comment on above: Performed By: #### L 503.0106, BTS, L500.4050, L100.0100, L501.9520 #### [facility] [address] [place], [address] Sodium [Moles/Vol] 134 mmol/L Normal 133-145 [facility] Comment on above: Performed By: #### L 503.0106, BTS, L500.4050, L100.0100, L501.9520 #### [facility] [address] [place], [address] T PROT 6.3 g/dL Normal 5.9-8.4 [facility] Comment on above: Performed By: #### L 503.0106, BTS, L500.4050, L100.0100, L501.9520 #### [facility] [address] [place], [address] Urea nitrogen [Mass/Vol] 13 mg/dL Normal 4-19 [facility] Comment on above: Performed By: #### L 503.0106, BTS, L500.4050, L100.0100, L501.9520 #### [facility] [address] [place], [address] Consultation - Orthopedicson 01-20-2025 Consultation - Orthopedics [facility] Medical Records Department [address] [place] [address] Consultation - Orthopedics 01/20/25 1415 MR#: [id number] Acct: [id number] Name: MONISHA COHN Rep #: [id number] : 1940 84 From: Braulio Tijerina MD PCP: Tressa Rosales Status:ADM IN Location: MS3 [id number] HPI Consult Data Date of Consult: 01/20/25 [...] Patient notes that she lives in a alf facility and ambulates with a walker or uses a wheelchair. She does not walk independently. She was reported to have fallen yesterday and sustained an injury to her right hand and hip. She was seen at an outside hospital and requested transfer to [place] as they did not have orthopedics. She [...] current treatment or active malignancies. [facility] Medical History Nocturia Urge incontinence Overactive bladder Former tobacco use Depression Hypertension Fall [facility] (closed head injury) Presence of stent in coronary artery ( 12/22/21) Atherosclerotic heart disease of [place] coronary artery without angina pectoris ST elevation [...] Tobacco: How (more content not included)... Normal [facility] Decalcification bone/plaqueo n 01-20-2025 Decalcification bone/plaque ---- Patient Age/Sex Location Account Attending Physician ---- MONISHA COHN 84/F MS3 [id number] Dr. Davian Kelly MD ---- Specimen: [id number] Received: 01/23/25 Status: CAROL Mccauley Num: [id number] Spec Type: TOTAL HIP Subm Dr: Dr. [...] medullary bone. No definitive lesions are identified. Clerical Methods Analyst sections are submitted in 2 cassettes, following decalcification, as follows: A1: Articular cartilage, including area of detached cartilageA2: Congested medullary bone, area of detached cartilage AR 01/23/2025 [facility]:[id number] ---- Patient Age/Sex Location Account Attending Physician ---- MONISHA COHN 84/F MS3 [id number] Dr. Davian Kelly MD ---- Signed (signature on file) Dr. Debbie Corea MD 01/27/25 1357 ---- Normal [facility] Comment on above: Performed By: #### L 503.0106, BTS, L500.4050, L100.0100, L501.9520 #### [facility] [address] [place], [address] ED NOTEon 01-20-2025 ED NOTE HNO ID: [id number] Author: FLORIDALMA SZYMANSKI, RN Service: Emergency Medicine Author Type: Registered Nurse Type: ED Notes Filed: 01/20/2025 00:07 Note Text: [facility] here, chart and report provided along with disk of films Normal [facility] Eosinophil percentageOrdered By: Stephan Beard on 01-20-2025 Eosinophils/100 WBC (Bld) 0.1 % 0-5 [facility] Folate [Mass/volume] in Seru m or PlasmaOrdered By: Stephan Beard on 01-20-2025 Folate [Mass/Vol] 6.23 ng/mL 4.60-34.80 [facility] Comment on above: Hemolysis, Results w ill be affected, Requires Recollection. Folates,Serum (Folic Acid)on 01-20-2025 FOLATES,SERUM 6.23 ng/mL Normal 4.60-34.80 [facility] Comment on above: Result Comment: Hemo lysis, Results will be affected, Requires Recollection. Performed By: #### L 503.0106, BTS, L500.4050, L100.0100, L501.9520 #### [facility] [address] [facility] [address] [place], [address] H AND P Exam - Hospitaliston 01-20-2025 H&P Exam - Hospitalist [facility] Medical Records Department [address] [place] [address] H P Exam - Hospitalist 01/20/25 0112 MR#: [id number] Acct: [id number] Name: MONISHA COHN Rep #: [id number] : 1940 84 From: Stephan Martel DO PCP: Tressa Rosales Status:ADM IN Location: [facility] [id number] [facility] - General General Date of Admission: 01/20/25 Date of Service: 01/20/25 Chief Complaint: Fall with Right Hip Fracture. HPI Narrative MONISHA COHN, is a 84 F with a past medical history of essential hypertension; currently not on treatment, hyperlipidemia; on atorvastatin, former tobacco abuse; with subsequent COPD and pulmonary hypertension, CAD; with RCA stent at [facility] in [place] (2009) and subsequent inferior wall ST elevation [place] s/p RCA stent with cardiogenic shock and [...] recently diagnosed GENA-19 who was transferred from [facility] after she was diagnosed with an impacted [...] LOC with her fall. Dr. North of [facility] spoke to Dr. Tijerina of the orthopedic service here who recommended admission to the hospitalist service with formal consultation pending in the a.m. for ORIF. She was then admitted to the general medical floor for ongoing care for stay that is expected to extend beyond 2 midnights. [facility] Medical History Nocturia Urge incontinence Overactive bladder Former tobacco use Depression Hypertension Fall [facility] (closed head injury) Presence of stent in coronary artery ( 12/22/21) Atherosclerotic heart disease of [place] coronary artery without angina pectoris ST elevation [...] PO .COMPLEX (more content not included)... Normal [facility] Hip Min 2 Views (Portable)on 01-20-2025 Hip Min 2 Views (Portable) [facility] Imaging Services [address] [place] [address] Hip Min 2 Views (Portable) MR#: [id number] Acct: [id number] Name: MONISHA COHN Rep #: [id number] : 1940 F 84 From: Law brewster MD PCP: Tressa Rosales Status: ADM IN Study: Hip Min 2 Views (Portable) Date of Exam: 01/20 Exam# [id number] Ordering Dr: Braulio Tijerina MD PROCEDURE: HIP [...] hip chronic and surgical changes. [facility] CC: Dr. Braulio Tijerina MD; Tressa Rosales Traffic Control Technician: Signed Normal [facility] Hip Min 2 Views (Portable) [facility] Imaging Services [address] [place] [place] [address] Hip Min 2 Views (Portable) MR#: [id number] Acct: [id number] Name: MONISHA COHN Rep #: [id number] : 1940 F 84 From: Law brewster MD PCP: Tressa Rosales Status: ADM IN Study: Hip Min 2 Views (Portable) Date of Exam: 01/20 Exam# [id number] Ordering Dr: Braulio Tijerina MD PROCEDURE: HIP [...] CC: Dr. Braulio Tijerina MD; Tressa Rosales Traffic Control Technician: Signed Normal [facility] Immature granulocytes/100 WB C Auto (Bld)Ordered By: Stephan Beard on 01-20-2025 Immature granulocytes/100 WBC (Bld) 0.400 % 0.0-0.9 [facility] Comment on above: IG% - Immature Granu locytes (promyelocytes, myelocytes and metamyelocytes) > 1% indicates that a LEFT SHIFT is Present. Ketones Test strip Ql (U)Ord ered By: Stephan Beard on 01-20-2025 Ketones Ql (U) 15 mg/dl High Negative [facility] L501.4021on 01-20-2025 Trop T High Sen 27 ng/L High <=14 [facility] Comment on above: Performed By: #### L 503.0106, BTS, L500.4050, L100.0100, L501.9520 #### [facility] [address] [place], [address] Laboratory - Chemistry and C hemistry - challengeOrdered By: Stephan Beard on 01-20-2025 AST [Catalytic activity/Vol] 19 U/L <32 [facility] MR/POSTOP.ANEon 01-20-2025 MR/POSTOP.ANE [facility] Medical Records Department [address] [place] [address] Anesthesia Postop Eval I 01/20/25 1715 MR#: [id number] Acct: [id number] Name: MONISHA COHN Rep #: [id number] : 1940 84 From: Brennen Rojas CRNA PCP: Tressa Rosales Status:ADM IN Y Race: C Location: MT3 CA184-8 Anesthesia: Postop Eval I Current Vital Signs [...] [place] JULIAN Cosigner Signature: CC: Signed Normal [facility] MR/[id number] 01-20-2025 /[facility] Medical Records Department [address] [place] [address] Anesthesia Postop Eval II 01/20/251705 MR#: [id number] Acct: [id number] Name: MONISHA COHN Rep #: [id number] : 1940 84 From: Jareth Shepard MD PCP: Tressa Rosales Status:ADM IN Y Race: C Location: [facility] [id number] Anesthesia Postop Eval I Sum Anesthesia Postop [...] MD Cosigner Signature: Date CC: Signed Normal [facility] Microscopic analysis of urin e for red blood cells (RBC)Ordered By: Stephan Beard on 01-20-2025 Microscopic analysis of urine for red blood cells (RBC) 0 SEEN /hpf 0-5 [facility] Monocyte percentageOrdered B y: Stephan Beard on 01-20-2025 Monocytes/100 WBC (Bld) 7.2 % 0-10 [facility] Mucus LM Ql (Urine sed)Order ed By: Stephan Beard on 01-20-2025 Mucus Ql (Urine sed) 0 SEEN /hpf [facility] Neutrophil percentageOrdered By: Stephan Beard on 01-20-2025 Neutrophils/100 WBC (Bld) 81.1 % High 47-70 [facility] Nitrite Test strip Ql (U)Ord ered By: Stephan Beard on 01-20-2025 Nitrite Ql (U) Negative Negative [facility] Nucleated red blood cell per centageOrdered By: Stephan Beard on 01-20-2025 Nucleated RBC/100 WBC (Bld) [Ratio] 0 % 0-5 [facility] Operative Reporton Operative Report [facility] Medical Records Department [address] [place] [address] Operative Report 01/20/25 1545 MR#: [id number] Acct: [id number] Name: MONISHA COHN Rep #: [id number] : 1940 84 From: Braulio Tijerina MD PCP: Tressa Rosales Status:ADM IN [facility] (Standard) Operative Information Date of Procedure: 01/20/25 Pre-Operative Diagnosis: Right hip subcapital femoral neck fracture Post-Operative Diagnosis: Right hip subcapital femoral neck fracture Surgery/Procedure Performed: Right hip endoprosthesis director independent: Yes Truck And Transport Mechanic: Edyta Bhatti Tasks completed by first press operator: Opening, Closing, Implanting device and Retracting Additional nursing assistant?: No Type of Anesthesia: General RN [...] the emmanuel (more content not included)... Normal [facility] Phosphoruson 01-20-2025 Phosphate [Mass/Vol] 2.4 mg/dL Low 2.7-4.5 [facility] Comment on above: Performed By: #### L 501.2300 #### [facility] [address] [place], [address] Protein Test strip Ql (U)Ord ered By: Stephan Beard on 01-20-2025 Protein Ql (U) 15 mg/dl High Negative [facility] Serum globulin measurementOr dered By: Stephan dela cruz 01-20-2025 Globulin (S) [Mass/Vol] 2.7 g/dL 2.2-4.2 [facility] Serum or plasma alanine swenson otransferase (ALT) measurementOrdered By: Stephan Beard on 01-20-2025 ALT [Catalytic activity/Vol] U/L <35 [facility] Serum or plasma albumin taylor urement (mass/volume)Ordered By: Stephan Beard on 01-20-2025 Albumin [Mass/Vol] 3.6 g/dL 3.4-4.8 [facility] Serum or plasma albumin/glob ulin mass ratioOrdered By: Stephan Beard on 01-20-2025 Albumin/Globulin [Mass ratio] 1.4 {ratio} 0.9-2.4 [facility] Serum or plasma alkaline nhi sphatase measurementOrdered By: Stephan Beard on 01-20-2025 ALP [Catalytic activity/Vol] 51 U/L 35-104 [facility] Squamous epithelial cells de tection in urine sediment by light microscopyOrdered By: Stephan Beard on 01-20-2025 Epithelial cells.squamous LM Ql (Urine sed) 0 SEEN /hpf -10 [facility] TSH DL <= 0.005 mIU/L QnOrde red By: Stephan Beard on 01-20-2025 TSH Qn 1.900 uIU/mL 0.300-4.200 [facility] Thyroid Stim Hormone (TSH)on 01-20-2025 TSH 1.900 uIU/mL Normal 0.300-4.200 [facility] Comment on above: Performed By: #### L 503.0106, BTS, L500.4050, L100.0100, L501.9520 #### [facility] [address] [place], [address] Total proteinOrdered By: Melchor Beard on 01-20-2025 Protein [Mass/Vol] 6.3 g/dL 5.9-8.4 [facility] Troponin T HS 2 HRon 025 Trop T High Sen 29 ng/L High <=14 [facility] Comment on above: Performed By: #### L 503.0106, BTS, L500.4050, L100.0100, L501.9520 #### [facility] [address] [place], [address] Troponin T HS 4 HRon 025 Trop T High Sen 28 ng/L High <=14 [facility] Comment on above: Performed By: #### L 503.0106, BTS, L500.4050, L100.0100, L501.9520 #### [facility] [address] [place], [address] Troponin T.cardiac [Mass/vol ume] in Serum or Plasma by High sensitivity methodOrdered By: Stephan Beard on 01-20-2025 Troponin T.cardiac High sensitivity method [Mass/Vol] 28 ng/L High <14 [facility] Troponin T.cardiac High sensitivity method [Mass/Vol] 29 ng/L High <14 [facility] Troponin T.cardiac High sensitivity method [Mass/Vol] 27 ng/L High <14 [facility] Type AND Screenon 01-20-2025 ABO and Rh group Nom (Bld) Blood group B Rh(D) positive Normal [facility] Comment on above: Order Comment: S Performed By: #### L 503.0106, BTS, L500.4050, L100.0100, L501.9520 #### [facility] [address] [place], [address] Urinalysis, Completeon 01-20 BACTERIA 0 SEEN Normal None Seen [facility] Comment on above: Order Comment: CLEAN CATCH Performed By: #### L 503.0106, BTS, L500.4050, L100.0100, L501.9520 #### [facility] [address] [place], [address] EPI,SQUAMOUS 0 SEEN Normal -10 [facility] Comment on above: Order Comment: CLEAN CATCH Performed By: #### L 503.0106, BTS, L500.4050, L100.0100, L501.9520 #### [facility] [address] [place], [address] Mucus Ql (Urine sed) 0 SEEN Normal [facility] Comment on above: Order Comment: CLEAN CATCH Performed By: #### L 503.0106, BTS, L500.4050, L100.0100, L501.9520 #### [facility] [address] [place], [address] RBC 0 SEEN Normal 0-5 [facility] Comment on above: Order Comment: CLEAN CATCH Performed By: #### L 503.0106, BTS, L500.4050, L100.0100, L501.9520 #### [facility] [address] [place], [address] WBC 0 SEEN Normal 0-5 [facility] Comment on above: Order Comment: CLEAN CATCH Performed By: #### L 503.0106, BTS, L500.4050, L100.0100, L501.9520 #### [facility] [address] [place], [address] Urine clarityOrdered By: Melchor Beard on 01-20-2025 Clarity (U) Sl. Cloudy Clear [facility] Urine color determinationOrd ered By: Stephan Beard on 01-20-2025 Color (U) Yellow Yellow [facility] Urine glucose detectionOrder ed By: Stephan Beard on 01-20-2025 Glucose Ql (U) Normal mg/dl Normal [facility] Urine leukocyte esterase det ection by dipstickOrdered By: Stephan Beard on 01-20-2025 Leukocyte esterase Test strip Ql (U) Negative Negative [facility] Urine pHOrdered By: Stephan hagen on 01-20-2025 pH (U) 6.5 [pH] 5.0 - 8.0 [facility] Urine sediment bacteria coun t by microscopy (number/high power field)Ordered By: Stephan Beard on 01-20-2025 Bacteria LM.HPF (Urine sed) [#/Area] 0 /[HPF] None Seen [facility] Urine specific gravity measu rementOrdered By: Stephan Beard on 01-20-2025 Specific gravity (U) [Rel density] 1.010 1.002-1.030 [facility] Urine urobilinogen measureme ntOrdered By: Stephan Beard on 01-20-2025 Urobilinogen Ql (U) Normal mg/dl Normal [facility] Vitamin B12on 01-20-2025 Cobalamin (Vitamin B12) [Mass/Vol] 1234 pg/mL High 180-914 [facility] Comment on above: Performed By: #### L 503.0106, BTS, L500.4050, L100.0100, L501.9520 #### [facility] [address] [place], [address] Vitamin B12 ser/plasOrdered By: Stephan Beard on 01-20-2025 Cobalamin (Vitamin B12) [Mass/Vol] 1234 pg/mL High 180-914 [facility] White blood cell countOrdere d By: Stephan Beard on 01-20-2025 White blood cell count 0 SEEN /hpf 0-5 [facility] ALLIED HEALTHon 01-19-2025 ALLIED HEALTH HNO ID: [id number] Author: JANNIE MARTINES RT(R) Service: Radiology Author Type: Bat Boy/Girl Type: Allied Health Filed: 01/19/2025 21:08 Note [...] PATIENT PRESENTS WITH AN IMPLANTABLE OR ATTACHED MACHINE OPERATOR HOP WORKER: No RADIOLOGY DEPARTMENT: CT; Exam(s) Completed: Brain and Spine . Anesthesia: No PERIPHERAL IV DATA: Not applicable SIGNED BY: Jannie Martines RT(R) January 19, 2025 9:08 PM Normal [facility] Basic metabolic 2000 panelon 01-19-2025 Anion gap [Moles/Vol] 11 mmol/L Normal 8-15 [facility] Comment on above: Order Comment: Speci men Type: BLOOD SPECIMEN Ordering Facility: [facility] Address: [address] [place] [address] Performed By: #### 2 4321-2 #### [facility] CLIA [id number] [address] [place] [address] [place] Calcium [Mass/Vol] 8.7 mg/dL Normal 8.5-10.2 [facility] Comment on above: Order Comment: Speci men Type: BLOOD SPECIMEN Ordering Facility: [facility] Address: [address] [place] [address] Performed By: #### 2 4321-2 #### [facility] CLIA [id number] [address] [place] [address] [place] Chloride [Moles/Vol] 100 mmol/L Normal 98-107 [facility] Comment on above: Order Comment: Speci men Type: BLOOD SPECIMEN Ordering Facility: [facility] Address: [address] [place] [address] Performed By: #### 2 4321-2 #### [facility] CLIA [id number] [address] [place] [address] [place] CO2 [Moles/Vol] 23 mmol/L Normal 22-30 [facility] Comment on above: Order Comment: Speci men Type: BLOOD SPECIMEN Ordering Facility: [facility] Address: [address] [place] [address] Performed By: #### 2 4321-2 #### [facility] CLIA [id number] [address] [place] [address] [place] Creatinine [Mass/Vol] 0.76 mg/dL Normal 0.58-0.96 [facility] Comment on above: Order Comment: Liza granados Type: BLOOD SPECIMEN Ordering Facility: [facility] Address: [address] [place] [address] Performed By: #### 2 4321-2 #### [facility] CLIA [id number] [address] [place] [address] [place] eGFRcr SerPlBld CKD-EPI 2020 78 mL/min/1.73m??? Normal >=60 [facility] Comment on above: Order Comment: Liza granados Type: BLOOD SPECIMEN Ordering Facility: [facility] Address: [address] [place] [address] Result Comment: Rachael mated Glomerular Filtration Rate [...] GFR. Performed By: #### 2 4321-2 #### [facility] CLIA [id number] [address] [place] [address] [place] Glucose [Mass/Vol] 100 mg/dL High 74-99 [facility] Comment on above: Order Comment: Liza granados Type: BLOOD SPECIMEN Ordering Facility: [facility] Address: [address] [place] [address] Result Comment: The [place] [employer] (ADA) provides guidance for cutoff [...] Standards of Medical Care in Diabetes 2016, [place] [employer]. Diabetes Care. 2016.39(Suppl 1). Performed By: #### 2 4321-2 #### [facility] CLIA [id number] [address] [place] [address] [place] Potassium [Moles/Vol] 3.8 mmol/L Normal 3.7-5.1 [facility] Comment on above: Order Comment: Speci men Type: BLOOD SPECIMEN Ordering Facility: [facility] Address: [address] [place] [address] Performed By: #### 2 4321-2 #### [facility] CLIA [id number] [address] [place] [address] [place] Sodium [Moles/Vol] 134 mmol/L Low 136-144 [facility] Comment on above: Order Comment: Speci men Type: BLOOD SPECIMEN Ordering Facility: [facility] Address: [address] [place] [address] Performed By: #### 2 4321-2 #### [facility] CLIA [id number] [address] [place] [address] [place] Urea nitrogen [Mass/Vol] 14 mg/dL Normal 7-21 [facility] Comment on above: Order Comment: Speci men Type: BLOOD SPECIMEN Ordering Facility: [facility] Address: [address] [place] [address] Performed By: #### 2 4321-2 #### [facility] CLIA [id number] [address] [place] CBC W Auto Differential pane l (Bld)on 01-19-2025 Basophils (Bld) [#/Vol] 10*3/uL Normal <0.11 [facility] Comment on above: Order Comment: Speci men Type: BLOOD SPECIMEN Ordering Facility: [facility] Address: [address] [place] [address] Performed By: #### 5 7021-8 #### [facility] CLIA [id number] [address] [place] [address] [facility] [place] Basophils/100 WBC (Bld) 0.3 % Normal A [facility] Comment on above: Order Comment: Speci men Type: BLOOD SPECIMEN Ordering Facility: [facility] Address: [address] [place] [address] Performed By: #### 5 7021-8 #### [facility] CLIA [id number] [address] [place] [address] [place] Differential cell count method Nom (Bld) Auto Normal [facility] Comment on above: Order Comment: Speci men Type: BLOOD SPECIMEN Ordering Facility: [facility] Address: [address] [place] [address] Performed By: #### 5 7021-8 #### [facility] CLIA [id number] [address] [place] [address] [place] Eosinophils (Bld) [#/Vol] 10*3/uL Normal <0.46 [facility] Comment on above: Order Comment: Speci men Type: BLOOD SPECIMEN Ordering Facility: [facility] Address: [address] [place] [address] Performed By: #### 5 7021-8 #### [facility] CLIA [id number] [address] [place] [address] [place] Eosinophils/100 WBC (Bld) 0.3 % Normal [facility] Comment on above: Order Comment: Speci men Type: BLOOD SPECIMEN Ordering Facility: [facility] Address: [address] [place] [address] Performed By: #### 5 7021-8 #### [facility] CLIA [id number] [address] [place] [address] [place] Erythrocyte distribution width (RBC) [Ratio] 13.1 % Normal 11.5-15.0 [facility] Comment on above: Order Comment: Speci men Type: BLOOD SPECIMEN Ordering Facility: [facility] Address: [address] [place] [address] Performed By: #### 5 7021-8 #### [facility] CLIA [id number] [address] [place] [address] [place] Hematocrit (Bld) [Volume fraction] 35.9 % Low 36.0-46.0 [facility] Comment on above: Order Comment: Speci men Type: BLOOD SPECIMEN Ordering Facility: [facility] Address: [address] [place] [address] Performed By: #### 5 7021-8 #### [facility] CLIA [id number] [address] [place] [address] [place] Hemoglobin (Bld) [Mass/Vol] 11.3 g/dL Low 11.5-15.5 [facility] Comment on above: Order Comment: Speci men Type: BLOOD SPECIMEN Ordering Facility: [facility] Address: [address] [place] [address] Performed By: #### 5 7021-8 #### [facility] CLIA [id number] [address] [place] [address] [place] Immature granulocytes (Bld) [#/Vol] 10*3/uL Normal <0.10 [facility] Comment on above: Order Comment: Speci men Type: BLOOD SPECIMEN Ordering Facility: [facility] Address: [address] [place] [address] Performed By: #### 5 7021-8 #### [facility] CLIA [id number] [address] [place] [address] [place] Immature granulocytes/100 WBC (Bld) 0.6 % Normal [facility] Comment on above: Order Comment: Speci men Type: BLOOD SPECIMEN Ordering Facility: [facility] Address: [address] [place] [address] Performed By: #### 5 7021-8 #### [facility] CLIA [id number] [address] [place] [address] [place] Lymphocytes (Bld) [#/Vol] 1.32 10*3/uL Normal 1.00-4.00 [facility] Comment on above: Order Comment: Speci men Type: BLOOD SPECIMEN Ordering Facility: [facility] Address: [address] [place] [address] Performed By: #### 5 7021-8 #### [facility] CLIA [id number] [address] [place] [address] [facility] Lymphocytes/100 WBC (Bld) 40.6 % Normal [facility] Comment on above: Order Comment: Speci men Type: BLOOD SPECIMEN Ordering Facility: [facility] Address: [address] [place] [address] Performed By: #### 5 7021-8 #### [facility] CLIA [id number] [address] [place], [place] [address] [place] [address] MCH (RBC) [Entitic mass] 27.8 pg Normal 26.0-34.0 [facility] Comment on above: Order Comment: Speci men Type: BLOOD SPECIMEN Ordering Facility: [facility] Address: [address] [place] [address] Performed By: #### 5 7021-8 #### [facility] CLIA [id number] [address] [place], [place] [address] [place] [address] MCHC (RBC) [Mass/Vol] 31.5 g/dL Normal 30.5-36.0 [facility] Comment on above: Order Comment: Speci men Type: BLOOD SPECIMEN Ordering Facility: [facility] Address: [address] [place] [address] Performed By: #### 5 7021-8 #### [facility] CLIA [id number] [address] [place], [place] [address] [place] [address] [place] MCV (RBC) [Entitic vol] 88.4 fL Normal 80.0-100.0 [facility] Comment on above: Order Comment: Speci men Type: BLOOD SPECIMEN Ordering Facility: [facility] Address: [address] [place] [address] Performed By: #### 5 7021-8 #### [facility] CLIA [id number] [address] [place] [address] [facility] Monocytes (Bld) [#/Vol] 0.42 10*3/uL Normal <0.87 [facility] Comment on above: Order Comment: Speci men Type: BLOOD SPECIMEN Ordering Facility: [facility] Address: [address] [place] [address] Performed By: #### 5 7021-8 #### [facility] CLIA [id number] [address] [place] [address] [place] Monocytes/100 WBC (Bld) 12.9 % Normal A [facility] Comment on above: Order Comment: Speci men Type: BLOOD SPECIMEN Ordering Facility: [facility] Address: [address] [place] [address] Performed By: #### 5 7021-8 #### [facility] CLIA [id number] [address] [place] [address] [place] Neutrophils (Bld) [#/Vol] 1.47 10*3/uL Normal 1.45-7.50 [facility] Comment on above: Order Comment: Speci men Type: BLOOD SPECIMEN Ordering Facility: [facility] Address: [address] [place] [address] Performed By: #### 5 7021-8 #### [facility] CLIA [id number] [address] [place] [address] [place] Neutrophils/100 WBC (Bld) 45.3 % Normal [facility] Comment on above: Order Comment: Speci men Type: BLOOD SPECIMEN Ordering Facility: [facility] Address: [address] [place] [address] Performed By: #### 5 7021-8 #### [facility] CLIA [id number] [address] [place] [address] [place] Nucleated RBC (Bld) [#/Vol] Normal [facility] Comment on above: Order Comment: Speci men Type: BLOOD SPECIMEN Ordering Facility: [facility] Address: [address] [place] [address] Performed By: #### 5 7021-8 #### [facility] CLIA [id number] [address] [place] [address] [place] Nucleated RBC/100 WBC (Bld) [Ratio] Normal [facility] Comment on above: Order Comment: Speci men Type: BLOOD SPECIMEN Ordering Facility: [facility] Address: [address] [place] [address] Performed By: #### 5 7021-8 #### [facility] CLIA [id number] [address] [place] [address] [place] Platelet mean volume (Bld) [Entitic vol] 8.3 fL Low 9.0-12.7 [facility] Comment on above: Order Comment: Speci men Type: BLOOD SPECIMEN Ordering Facility: [facility] Address: [address] [place] [address] Performed By: #### 5 7021-8 #### [facility] CLIA [id number] [address] [place] [address] [place] Platelets (Bld) [#/Vol] 238 10*3/uL Normal 150-400 [facility] Comment on above: Order Comment: Speci men Type: BLOOD SPECIMEN Ordering Facility: [facility] Address: [address] [place] [address] Performed By: #### 5 7021-8 #### [facility] CLIA [id number] [address] [place] [address] [place] RBC (Bld) [#/Vol] 4.06 10*6/uL Normal 3.90-5.20 [facility] Comment on above: Order Comment: Speci men Type: BLOOD SPECIMEN Ordering Facility: [facility] Address: [address] [place] [address] Performed By: #### 5 7021-8 #### [facility] CLIA [id number] [address] [place] [address] [place] WBC (Bld) [#/Vol] 3.25 10*3/uL Low 3.70-11.00 [facility] Comment on above: Order Comment: Speci men Type: BLOOD SPECIMEN Ordering Facility: [facility] Address: [address] [place] [address] Performed By: #### 5 7021-8 #### [facility] CLIA [id number] [address] [place] [address] [place] [address] BRAIN WO IVCONon 01-20-20 CT BRAIN WO IVCON * * *Final Report* * * DATE OF EXAM: Jan 19 2025 9:04PM [facility] 0504 - CT BRAIN WO IVCON / PROCEDURE REASON: Head trauma, moderate-severe * * * * Physician Interpretation * * * * EXAMINATION: CT BRAIN WO IVCON, CT CERVICAL SPINE WO IVCON CLINICAL HISTORY: Head trauma, moderate-severe - - Head trauma, moderate-severe (accession [id number]), Neck trauma, uncomplicated (NEXUS/CCR neg) (Age 16-64y) (accession [id number]) - TECHNIQUE: CT head and cervical spine without contrast. MQ: CTBCSWO_3 Dose-Length Product (DLP): 706.22 (accession [id number]), 154.36 (accession [id number]) mGy*cm CT Dose Reduction Employed: Automated exposure [...] vertebrae with counting from the craniocervical junction. Traffic Control Technician: PSCB Transcribe Date/Time: Jan 19 2025 9:06P Dictated by : KERRIE WARNER MD This examination was interpreted and the report reviewed and electronically signed by: KERRIE WARNER MD on Jan 19 2025 9:15PM EST [id number] [facility] CT CERVICAL SPINE WO IVCONon 01-19-2025 CT CERVICAL SPINE WO IVCON * * *Final Report* * * DATE OF EXAM: Jan 19 2025 9:04PM [facility] 0505 - CT CERVICAL SPINE WO IVCON / PROCEDURE REASON: Neck trauma, uncomplicated (NEXUS/CCR neg) (Age 16-64y) * * * * Physician Interpretation * * * * EXAMINATION: CT BRAIN WO IVCON, CT CERVICAL SPINE WO IVCON CLINICAL HISTORY: Head trauma, moderate-severe - - Head trauma, moderate-severe (accession [id number]), Neck trauma, uncomplicated (NEXUS/CCR neg) (Age 16-64y) (accession [id number]) - TECHNIQUE: CT head and cervical spine without contrast. MQ: CTBCSWO_3 Dose-Length Product (DLP): 706.22 (accession [id number]), 154.36 (accession [id number]) mGy*cm CT Dose Reduction Employed: Automated exposure [...] vertebrae with counting from the craniocervical junction. Traffic Control Technician: PSCB Transcribe Date/Time: Jan 19 2025 9:06P Dictated by : KERRIE WARNER MD This examination was interpreted and the report reviewed and electronically signed by: KERRIE WARNER MD on Jan 19 2025 9:15PM EST [id number] [facility] ED NOTEon 01-19-2025 ED NOTE HNO ID: [id number] Author: FLORIDALMA SZYMANSKI RN Service: Emergency Medicine Author Type: Registered Nurse Type: ED Notes Filed: 01/19/2025 23:50 Note Text: Oxygen started at 2L/NC per request from Dr. Maurer for sats staying around 90% on RA [facility] ED NOTE HNO ID: [id number] Author: FLORIDALMA SZYMANSKI RN Service: Emergency Medicine Author Type: Registered Nurse Type: ED Notes Filed: 01/19/2025 23:45 Note Text: Patient informed: the name of medication, why we are giving it, possible side effects, what they may expect to feel, and was offered a chance to ask questions, prior to the administration of fentanyl [facility] ED NOTE HNO ID: [id number] Author: FLORIDALMA SZYMANSKI, RN Service: Emergency Medicine Author Type: Registered Nurse Type: ED Notes Filed: 01/19/2025 23:08 Note Text: Called [facility] for transport eta 1 hour [facility] ED NOTE HNO ID: [id number] Author: FLORIDALMA SZYMANSKI RN Service: Emergency Medicine Author Type: Registered Nurse Type: ED Notes Filed: 01/19/2025 23:04 Note Text: Nursing logging crew supervisor from [facility] called with bed assignment -[facility] 309 -report number [phone] -accepted per Dr. Peters [facility] ED NOTE HNO ID: [id number] Author: FLORIDALMA SZYMANSKI, AUGUSTIN Service: Emergency Medicine Author Type: Registered Nurse Type: ED Notes Filed: 01/19/2025 22:38 Note Text: Drr. Maurer speaking with kimber Martinez nutrition counselor for Dr. Grier from [facility] per pt request [facility] ED NOTE HNO ID: [id number] Author: DWIGHT YOUNGER, AUGUSTIN Service: ? Author Type: Registered Nurse Type: ED Notes Filed: 01/19/2025 19:00 Note Text: Pt fell from standing position while she was at dinner at the [place]. Pt hit her head but denies loc, but does have dizziness. Pt c/o pain in r hand and r hip. Pt is also positive for covid [facility] ED PROV NOTEon 01-19-2025 ED PROV NOTE HNO ID: [id number] Author: RUSSEL MAURER MD Service: Emergency Medicine [...] Labs Or (more content not included)... [facility] XR CHEST 1V FRONTALon 2024 XR CHEST [...] and spine. IMPRESSION: No acute radiographic abnormality. Traffic Control Technician: EMMY Transcribe Date/Time: Jan 19 2025 10:19P Dictated by : CYN MORGAN DO This examination was interpreted and the report reviewed and electronically signed by: CYN MORGAN DO on Jan 19 2025 10:19PM EST [id number] [facility] XR HAND 3V PA/LAT/OBL RTon 1 XR HAND 3V PA/LAT/OBL RT * * *Final Repo rt* * * DATE OF EXAM: Jan 19 2025 9:04PM LDX 5346 - XR HAND 3V PA/LAT/OBL RT / PROCEDURE REASON: Trauma * * * * Physician Interpretation * * * * EXAMINATION: XR HAND 3V PA/LAT/OBL RT, XR HIP 3V PELV+ AP/LAT RT CLINICAL HISTORY: Trauma (accession [id number]), Hip pain, acute, fx suspected, initial exam (accession [id number]) Technique: XR HAND 3V PA/LAT/OBL RT, XR [...] concerning for impacted right femoral neck fracture. Traffic Control Technician: PSCB Transcribe Date/Time: Jan 19 2025 10:16P Dictated by : JANNIE TOMLINSON MD This examination was interpreted and the report reviewed and electronically signed by: JANNIE TOMLINSON MD on Jan 19 2025 10:19PM EST [id number] [facility] XR HIP 3V PELV+ AP/LAT RTon 01-19-2025 [...] PELV+ AP/LAT RT CLINICAL HISTORY: Trauma (accession [id number]), Hip pain, acute, fx suspected, initial exam (accession [id number]) Technique: XR HAND 3V PA/LAT/OBL RT, XR [...] concerning for impacted right femoral neck fracture. Traffic Control Technician: PSCB Transcribe Date/Time: Jan 19 2025 10:16P Dictated by : JANNIE TOMLINSON MD This examination was interpreted and the report reviewed and electronically signed by: JANNIE TOMLINSON MD on Jan 19 2025 10:19PM EST [id number] [facility] ([id number]) 1940 F Date Time Provider Department 12/29/24 [...] Status:Closed by ISABEL JOYA on 12/29/24 Normal [facility] Laboratory - Chemistry and C hemistry - challengeOrdered By: Alexandria Dejesus on 12-28-2024 Bilirubin Ql (U) Negative [facility] Glucose Ql (U) Negative [facility] Ketones Ql (U) Negative [facility] pH (U) 6 [pH] [facility] Specific gravity (U) [Rel density] 1.015 [facility] Urobilinogen (U) [Mass/Vol] Negative [facility] Laboratory - Hematology and Cell countsOrdered By: Alexandria Dejesus on 12-28-2024 Hemoglobin Ql (U) Negative [facility] Laboratory - UrinalysisOrder ed By: Alexandria Dejesus on 12-28-2024 Nitrite Ql (U) Negative [facility] Protein Ql (U) Trace [facility] MR/Beau 12-28-2024 /BOUBACAR [facility] [address], [address] [place] [address] OFFICE VISIT Date of Service: 12/28/24 MR#: [id number] Acct: [id number] Name: MONISHA COHN Rep #: [id number] : 1940 Provider: Dr. Alexandria Lion i, MD Age/Sex: 84/F Location: [facility] Status: Signed Intake Vital Signs 09/27/24 08:22 12/28/24 13:11 Height 5 ft 2 in 5 ft 2 in Weight: 161 lb BMI 29.4 BP 115/60 Pulse 83 Intake Visit Reasons: 12m med f/u Chief Complaint: 12 month [facility] follow up Tutoring Clinician Required: No Accompanied by: ursing home specialist Is patient in pain?: Yes (bone spur [...] artery ( 12/22/21) Atherosclerotic heart disease of [place] coronary artery without angina pectoris ST elevation [...] dry ibis (more content not included)... Normal [facility] No Panel InformationOrdered By: Alexandria Dejesus on 12-28-2024 Urine Leukocytes Negatve [facility] Urine Non-Hemolyzed Blood Negative [facility] Cardiovascular stress test r eportOrdered By: Danielle Vernon on 11-07-2024 Study report [facility] [address] [place] [address] MR#: [id number] Acct: [id number] Name: MONISHA COHN Rep #: [id number] : 1940 84 From: Danielle Vernon [...] be obtained. This note was generated with [employer] dictation software. It may contain incorrectwords, spelling, and punctuation that were not noted in checking the note beforesigning. 11/07/241427 Date _ Danielle Vernon MD CC: Dr. Danielle Vernon MD; Tressa Bobby ~ Date Dictated: 11/07/241426 Date Transcribed: 11/07/241426 Traffic Control Technician: EVANGELINA Wiseman [facility] Work Phone: Echocardiogram study reportO rdered By: Danielle Vernon on 11-07-2024 Study report [facility] [address] [place] [address] Echo Complete 11/03/24928 MR#: [id number] Acct: [id number] Name: MONISHA COHN Rep #:[id number] : 1940 84 From: Danielle Vernon MD Attending Dr: Dr. Danielle Vernon MD Status: REG CLI Ordering Dr: Danielle Vernon MD Date: Location: [facility] Sex: F C Admitted: Reason For Study [...] Date _ Danielle Vernon MD CC: Dr. Dainelle Vernon MD; Tressa Rosales ~ Date Dictated: 11/03/24928 Date Transcribed: 07/28/25 1248 Traffic Control Technician: Signed [facility] Work Phone: Stress Reporton 11-07-2024 Stress Report [facility] [place] [address] [place] [address] MR#: [id number] Acct: [id number] Name: MONISHA COHN Rep #: [id number] : 1940 84 From: Danielle Vernon MD [...] be obtained. This note was generated with Wanelo[employer] software. It may contain incorrect words, spelling, and punctuation that were not noted in checking the note before signing. 11/07/241427 Date Danielle Vernon MD CC: Dr. Danielle Vernon MD; Tressa Rosales Date Dictated: 11/07/241426 Date Transcribed: 11/07/241426 Traffic Control Technician: EVANGELINA Signed Normal [facility] Echo Completeon 11-03-2024 Echo Complete [facility] [address] [place] [address] Echo Complete 11/03/24 0929 MR#: [id number] Acct: [id number] Name: MONISHA COHN Rep #: [id number] : 1940 84 From: Danielle Vernon MD Attending Dr: Dr. Danielle Vernon MD Status: REG CLI Ordering Dr: Danielle Vernon MD Date: 11/03/24 Location: [facility] Sex: F C Admitted: Reason For Study [...] Bobby Date Dictated: 11/03/24928 Date Transcribed: 11/07/241247 Traffic Control Technician: Signed Normal [facility] Cardiology Visit Reporton Cardiology Visit Report [facility] [address] [place] [address] OFFICE VISIT Date of Service: 09/27/24 MR#: [id number] Acct: [id number] Name: MONISHA COHN Rep #: [id number] : 1940 Provider: Dr. Danielle Vernon MD Age/Sex: 84/F Location: [facility] Status: Signed HPI HPI History of [...] NIBP Intake Visit Reasons: 6 M FU Tutoring Clinician Required: No Accompanied by: Is patient in [...] Yes (no major injuries; 2) [facility] Medical History Atherosclerotic heart disease of [place] coronary artery without angina pectoris Bladder spasms [...] for fatigue (more content not included)... Normal [facility] CNOVon 07-29-2024 CNOV Office Visit (NMMBHT ) MONISHA COHN ([id number]) 1940 F Date Time Provider Department 07/29/24 3:00 PM ARMEN MADISON During your visit today, we recorded the following information about you: Pulse Blood pressure 68/minute 110/65 Armen Madison MD 07/29/2024 3:33 PM Signed [facility] New Patient Visit Note Consultation [...] further r (more content not included)... Normal [facility] Folate SerPl-mCncon 07-30-19 25 Folate [Mass/Vol] 6.2 ng/mL Normal >4.7 [facility] Comment on above: Order Comment: Liza granados Type: BLOOD SPECIMEN Ordering Facility: [facility] Address: [address] [place] [address] Performed By: #### 2 284-8, 2132-9 #### [facility] CLIA [id number] [address] [place] [address] [place] HbA1c (Bld)on 07-29-2024 Average glucose Estimated from glycated hemoglobin (Bld) [Mass/Vol] 100 mg/dL Normal [facility] Comment on above: Order Comment: Liza granados Type: BLOOD SPECIMEN Ordering Facility: [facility] Address: [address] [place] [address] Result Comment: eAG: (Estimated average glucose) is a calculated value from HgbA1c and is players club representative of the average blood glucose level in the last 2-3 month period. Performed By: #### 5 5454-3 #### [facility] CLIA [id number] [address] [place] [address] [place] HbA1c (Bld) [Mass fraction] 5.1 % Normal 4.3-5.6 [facility] Comment on above: Order Comment: Liza granados Type: BLOOD SPECIMEN Ordering Facility: [facility] Address: [address] [place] [address] Result Comment: Amer ican Diabetes Association guidelines indicate that patients with HgbA1c in the range 5.7-6.4% are at increased risk for development of diabetes, and intervention by lifestyle modification may be beneficial. HgbA1c greater or equal to 6.5% is considered diagnostic of diabetes. Performed By: #### 5 5454-3 #### [facility] CLIA [id number] [address] [place] [address] IMMUNOFIXATION SCREEN, SERUM on 07-29-2024 INTERPRETATION (MPA) Atypical restricted bands are present in the IgG and lambda regions. Consistent with IgG lambda monoclonal gammopathy. Normal [facility] Comment on above: Order Comment: Liza granados Type: BLOOD SPECIMEN Ordering Facility: [facility] Address: [address] [place] [address] Performed By: #### I FESC #### [facility] CLIA [id number] [address] [place] [address] STATES OF [facility] MPA RESULT M protein is present. Abnormal No M p rotein is identified. [facility] Comment on above: Order Comment: Liza granados Type: BLOOD SPECIMEN Ordering Facility: [facility] Address: [address] [place] [address] Performed By: #### I FESC #### [facility] CLIA [id number] [address] [place] [address] OF [facility] STAFF REVIEW (MPA) Reviewed by Beatriz Estes M.D., Ph.D Normal [facility] Comment on above: Order Comment: Liza granados Type: BLOOD SPECIMEN Ordering Facility: [facility] Address: [address] [place] [address] Performed By: #### I FESC #### [facility] CLIA [id number] [address] [place], [place] [address] [place] KAPPA/ZIMMERMAN,FREE,SERon 2024 Immunoglobulin light chains.kappa.free (S) [Mass/Vol] 20.0 mg/L High 3.3-19.4 [facility] Comment on above: Order Comment: Speci roberta Type: BLOOD SPECIMEN Ordering Facility: [facility] Address: [address] [place] [address] Result Comment: Rare ly, increased serum free light chains levels may not be detected or accurately quantified due to prozone phenomenon or in high viscosity samples using this immunoturbidimetric assay. Correlation with other laboratory results and clinical findings is recommended. The Belva Free Light Chain was performed using the Binding Site Optilite immunoturbidimetric method. Result obtained with different assay methods or kits cannot be used interchangeably. Performed By: #### K LFRS #### [facility] CLIA [id number] [address] [place] [address] [place] Immunoglobulin light chains.kappa/Immunoglobu lacey light chains.lambda (S) [Mass ratio] 0.16 Low 0.26-1.65 [facility] Comment on above: Order Comment: Specmiguel granados Type: BLOOD SPECIMEN Ordering Facility: [facility] Address: [address] [place] [address] Performed By: #### K LFRS #### [facility] CLIA [id number] [address] [place] [address] [place] Immunoglobulin light chains.lambda.free [Mass/Vol] 121.8 mg/L High 5.7-26.3 [facility] Comment on above: Order Comment: Liza granados Type: BLOOD SPECIMEN Ordering Facility: [facility] Address: [address] [place] [address] Result Comment: Rare ly, increased serum free [...] interchangeably. Performed By: #### K LFRS #### [facility] CLIA [id number] [address] [place] [address] [place] Methylmalonate SerPl-sCncon 07-29-2024 Methylmalonate [Moles/Vol] 0.18 umol/L Normal <=0.40 [facility] Comment on above: Order Comment: Liza granados Type: BLOOD SPECIMEN Ordering Facility: [facility] Address: [address] [place] [address] Result Comment: This test was developed, and its performance characteristics determined by the [facility] Department of Pathology and Laboratory Medicine. It has not been cleared or approved by the FDA. The [facility] Department of Pathology and Laboratory Medicine is regulated under CLIA as qualified to perform high-complexity testing. This test is used for clinical purposes. It should not be regarded as investigational or for research. Performed By: #### 1 3964-2 #### [facility] CLIA [id number] [address] [place] [address] [place] VITAMIN B1 (THIAMINE), WHOLE BLOODon 07-29-2024 Thiamine (Bld) [Moles/Vol] 118.7 nmol/L Normal 84.3-213.3 [facility] Comment on above: Order Comment: Liza granados Type: BLOOD SPECIMEN Ordering Facility: [facility] Address: [address] [place] [address] Result Comment: This assay measures the concentration of thiamine diphosphate (TDP), the primary active form of vitamin B1. Approximately 90 percent of vitamin B1 present in whole blood is TDP. Thiamine and thiamine monophosphate, which comprise the remaining 10 percent, are not measured. This test was developed, and its performance characteristics determined by the [facility] Department of Pathology and Laboratory Medicine. It has not been cleared or approved by the FDA. The [facility] Department of Pathology and Laboratory Medicine is regulated under CLIA as qualified to perform high-complexity testing. This test is used for clinical purposes. It should not be regarded as investigational or for research. Performed By: #### B 1WB #### [facility] CLIA [id number] [address] [place] [address] [place] Vit B12 SerPl-mCncon 025 Cobalamin (Vitamin B12) [Mass/Vol] 876 pg/mL Normal 232-1245 [facility] Comment on above: Order Comment: Speci men Type: BLOOD SPECIMEN Ordering Facility: [facility] Address: [address] [place] [address] Performed By: #### 2 284-8, 2132-9 #### [facility] CLIA [id number] [address] [place] [address] CNOVon 06-28-2024 CNOV Office Visit (NRMDN) MONISHA COHN ([id number]) 1940 F Date Time Provider Department 06/28/24 8:00 AM EM FLYNN NRHANH During your visit today, we recorded the following information about you: Pulse Blood pressure Weight Height 76/minute 112/74 70.5 kg 1.575 m Em Flynn APRN.CNP 06/28/2024 11:22 PM Signed [facility] - FOLLOW UP EVALUATION The patient consented to the use of ambient [employer] software for draft documentation of the visit consistent with [facility]?s Notice of Privacy Practices. Alexandra Arreguin APRN.BABY STROLLER RENTAL CLERK [address] [address] Dear Alexandra Arreguin APRN.BABY STROLLER RENTAL CLERK: I had the pleasure of seeing Ms. [...] directives (living will and durable power of cable inspector for healthcare): By Email: Send your document(s) to [email or web address] as an attachment in either PDF, TIFF, or JPEG format. By Mail: [facility] Information Management, [employer] Advance Directive Processing [address] [place], [place] [address] By In person at any [facility] location Please note: You can use the address or fax number regardless of which [facility] you utilize, and we will make sure [...] she find (more content not included)... Normal [facility] Hepatobilliary Img w/Pharm I nton 06-03-2024 Hepatobilliary Img w/Pharm Int [facility] Imaging Services [address] [place], [place] [address] Hepatobilliary Img w/Pharm Int MR#: [id number] Acct: [id number] Name: MONISHA COHN Rep #: [id number] : 1940 F 84 From: Hong byrne MD PCP: Tressa Rosales Status: REG CLI Study: Hepatobilliary Img w/Pharm Int Date of Exam: 0 06/03/24 Exam# [id number] Ordering Dr: Didi Lujan STUNT MAN N P-C PROCEDURE: HEPATOBILLIARY IMG W/PHARM INT [...] SCAN AND GALLBLADDER EJECTION FRACTION. Reading Location: [place] [address] CC: Didi Lujan; Tressa Rosales Traffic Control Technician: Signed Normal [facility] Cardiology Visit Reporton Cardiology Visit Report [facility] [address] [place] [address] OFFICE VISIT Date of Service: 03/16/24 MR#: [id number] Acct: [id number] Name: MONISHA COHN Rep #: [id number] : 1940 Provider: Dr. Danielle Vernon MD Age/Sex: 83/F Location: [facility] Status: Signed HPI HPI History of [...] NIBP Intake Visit Reasons: 6 M FU Tutoring Clinician Required: No Accompanied by: Is patient in [...] denosumab 60 mg/mL subcutaneous 60 mg subcut [id number] 03/16/24 03/16/24 History syringe hydroxyzine HCl 25 [...] past year?: Yes (Hip Fx) [facility] Medical History Atherosclerotic heart disease of [place] coronary artery without angina pectoris Bladder spasms [...] distress and (more content not included)... Normal [facility] [place] Large Joint Arthro/Inj: L sh ould jointon [...] the patient voiced understanding of these instructions. [facility] XR Shoulder - left 3 Viewson 10-01-2023 IMPRESSION: Degenerative changes with chronic rotator cuff tear. Traffic Control Technician: [facility] Transcribe Date/Time: Oct 01 2023 6:45A Dictated by : SHENA OAKLEY MD This examination was interpreted and the report reviewed and electronically signed by: SHENA OAKLEY MD on Oct 01 2023 6:46AM EST [facility] * * *Final Report* * * [...] rotator cuff tear. No fracture or dislocation. [facility] Provider, [facility] - 10/01/2023 * * *Final Report* [...] Degenerative changes with chronic rotator cuff tear. Traffic Control Technician: EMMY Transcribe Date/Time: Oct 01 2023 6:45A Dictated by : SHENA OAKLEY MD This examination was interpreted and the report reviewed and electronically signed by: SHENA OAKLEY MD on Oct 01 2023 6:46AM EST [facility] XR Shoulder - left 3 ViewsOr dered By: [facility] Provider on 10-01-2023 [facility] XR SHLDR >/=3V AP/KIERA AP/OTH R LTon [...] Degenerative changes with chronic rotator cuff tear. Traffic Control Technician: PSCB Transcribe Date/Time: Oct 01 2023 6:45A Dictated by : SHENA OAKLEY MD This examination was interpreted and the report reviewed and electronically signed by: SHENA OAKLEY MD on Oct 01 2023 6:46AM EST [id number] [facility] XR Shoulder - left 3 Viewson 09-29-2023 Radiology Study observation (narrative) [facility] [address] [facility] * * *Final Report* * * DATE OF EXAM: Sep 23 2023 9:39AM JOSÉ LUIS 0628 - [facility] DIAG [facility] / PROCEDURE REASON: R92.2 INCONCLUSIVE MAMMOGRAM * * * * Physician Interpretation * * * * #[id number] - [facility] DIAG W JOHN PAUL LT #[id number] - [facility] BREAST LTD LT UNILATERAL LEFT DIGITAL DIAGNOSTIC [...] Comparison is made to exam dated: 08/13/2023 [facility]. The left breast is almost entirely fatty. [...] Comparison is made to exam dated: 08/13/2023 [facility]. Ultrasound of was performed. Imaging was done [...] Health, Family Medicine, and Medical/Surgical Oncology, the [facility] has carefully reviewed the data and reached [...] their providers when to stop screening mammograms. Pt Escort(s): Rafia Wagner RT(R)(M), [facility]; RT Nicole(R), [facility] OVERALL STUDY BIRADS: 2 Benign finding Traffic Control Technician: Gi Transcribe Date/Time: Sep 23 2023 9:21A Dictated by : AJAY BULLOCK MD This examination was interpreted and the report reviewed and electronically signed by: AJAY BULLOCK MD on Sep 23 2023 10:55AM EST [id number] Normal [facility] US BREAST LTD LTon 09-22 [facility] [employer] BREAST LTD LT * * *Final Report* * * DATE OF EXAM: Sep 23 2023 10:32AM JASPREET 0593 - [facility] [employer] BREAST LTD LT / PROCEDURE REASON: Abnormal mammogram * * * * Physician Interpretation * * * * #[id number] - [facility] DIAG W JOHN PAUL LT #[id number] - [facility] [employer] BREAST LTD LT UNILATERAL LEFT DIGITAL DIAGNOSTIC [...] made to exam dated: 08/13/2023 mammogram - [facility]. The left breast is almost entirely fatty. [...] made to exam dated: 08/13/2023 mammogram - [facility]. Ultrasound of was performed. Imaging was done [...] mammogram screening schedule is recommended. Ajay BENITEZ, [facility]/gi:09/23/2023 10:55:35 Multiple national specialty organizations have released breast cancer screening guidelines for women at average risk for developing breast cancer - guidelines that are based on both evidence and opinion, yet differ on when to start and how often to screen for breast cancer. With representation from Breast Imaging, Internal Medicine, Women's Health, Family Medicine, and Medical/Surgical Oncology, the [facility] has carefully reviewed the data and reached [...] their providers when to stop screening mammograms. Pt Escort(s): Rafia Wagner RT(R)(M), [facility]; RT Nicole(R), [facility] OVERALL STUDY BIRADS: 2 Benign finding Traffic Control Technician: Gi Transcribe Date/Time: Sep 23 2023 9:21A Dictated by : AJAY BULLOCK MD This examination was interpreted and the report reviewed and electronically signed by: AJAY BULLOCK MD on Sep 23 2023 10:55AM EST [id number] Normal [facility] US Breast - left limitedon 0 09-23-2023 * * *Final Report* * * DATE OF EXAM: Sep 23 2023 10:32AM JASPREET 0593 - [facility] [employer] BREAST LTD LT / PROCEDURE REASON: Abnormal mammogram * * * * Physician Interpretation * * * * #[id number] - [facility] DIAG W JOHN PAUL LT #[id number] - [facility] US BREAST LTD LT UNILATERAL LEFT DIGITAL [...] made to exam dated: 08/13/2023 mammogram - [facility]. The left breast is almost entirely fatty. [...] other findings are seen in the breast. [facility] Provider, Marko Luther [place] - 09/23/2023 * * *Final Report* * * DATE OF EXAM: Sep 23 2023 10:32AM JASPREET 0593 - [facility] Flexion LTD LT / PROCEDURE REASON: Abnormal mammogram * * * * Physician Interpretation * * * * #[id number] - [facility] DIAG W JOHN PAUL LT #[id number] - [facility] [employer] BREAST LTD LT UNILATERAL LEFT DIGITAL DIAGNOSTIC [...] Comparison is made to exam dated: 08/13/2023 [facility]. The left breast is almost entirely fatty. [...] Comparison is made to exam dated: 08/13/2023 [facility]. Ultrasound of was performed. Imaging was done [...] schedule is recommended. Ajay Bullock M.D. FACR, [facility]/gi:09/23/2023 10:55:35 Multiple national specialty organizations have released breast cancer screening guidelines for women at average risk for developing breast cancer - guidelines that are based on both evidence and opinion, yet differ on when to start and how often to screen for breast cancer. With representation from Breast Imaging, Internal Medicine, Women's Health, Family Medicine, and Medical/Surgical Oncology, the [facility] has carefully reviewed the data and reached [...] their providers when to stop screening mammograms. Pt Escort(s): RT Yumiko(R)(M), [facility]; RT Nicole(R), [facility] OVERALL STUDY BIRADS: 2 Benign finding Traffic Control Technician: Gi Transcribe Date/Time: Sep 23 2023 9:21A Dictated by : AJAY BULLOCK MD This examination was interpreted and the report reviewed and electronically signed by: AJAY BULLOCK MD on Sep 23 2023 10:55AM EST [facility] Radiology Study observation (narrative) [facility] US Breast - left limitedOrde red By: [facility] Provider on 09-23-2023 [facility] BD DXA - AXIAL SKELETONon BD DXA [...] years, Gender: Female SCANNER INFORMATION: DXA Model: Sport Telegram [id number] Date Scanned: 08/13/2023 2:25 PM CLINICAL HISTORY: [...] had a previous bone density in the [facility] or the previous bone density was performed on a different DXA machine (new, updated model or different location) within the [facility]. VERTEBRAL FRACTURE ASSESSMENT Not performed. TRABECULAR BONE [...] FOR MORE INFORMATION ABOUT DIAGNOSIS AND TREATMENT: [facility] Disease:? www.ccf.org/arthritis/ osteo National Osteoporosis Foundation:? www.nof.org International Society of Clinical Densitometry www.iscd.org Traffic Control Technician: EMMY Transcribe Date/Time: Aug 14 2023 8:30A Dictated by : SHENA OAKLEY MD This examination was interpreted and the report reviewed and electronically signed by: SHENA OAKLEY MD on Aug 14 2023 8:31AM EST [id number] -3.1 Normal [facility] SCREENINGon 08-13-2023 [facility] SCREENING * * *Final Report* * * DATE OF EXAM: Aug 13 2023 2:10PM JOSÉ LUIS 0581 - [facility] SCREENING / PROCEDURE REASON: Z12.31 SCREENING MAMMOGRAM * * * * Physician Interpretation * * * * #[id number] - [facility] SCREENING BILATERAL DIGITAL SCREENING MAMMOGRAM WITH CAD: [...] possible ultrasound are recommended. Jayleen spears/gi:08/14/2023 11:00:52 Pt Escort(s): RT aMribel(Carla)(M), [facility] letter sent: Additional Imaging Needed Mammogram BI-RADS: 0 Incomplete: needs additional imaging evaluation If this report indicates you need additional imaging, and it has NOT yet been performed, please call , to schedule. We sincerely thank you for choosing the [facility] for your breast imaging needs. Multiple national specialty organizations have released breast cancer screening guidelines for women at average risk for developing breast cancer - guidelines that are based on both evidence and opinion, yet differ on when to start and how often to screen for breast cancer. With representation from Breast Imaging, Internal Medicine, Women's Health, Family Medicine, and Medical/Surgical Oncology, the [facility] has carefully reviewed the data and reached [...] their providers when to stop screening mammograms. Traffic Control Technician: Gi Transcribe Date/Time: Aug 13 2023 1:56P Dictated by : JAYLEEN CASTELLANOS MD This examination was interpreted and the report reviewed and electronically signed by: JAYLEEN CASTELLANOS MD on Aug 14 2023 11:00AM EST [id number] [facility] MR Cervical spine WO contras ton 07-29-2023 [facility] Absolute lymphocyte countOrd ered By: Law Gold on 05-01-2023 Lymphocytes Auto (Unsp spec) [#/Vol] 1.22 10*3/uL 0.83-4.51 [facility] Activated partial thrombopla stin time (aPTT) in platelet poor plasma by coagulation aOrdered By: Law Gold on 05-01-2023 aPTT Coag (PPP) [Time] 23.0 s 24.1-36.2 [facility] Automated lymphocyte count a s percentage of total leukocytesOrdered By: Law Gold on 05-01-2023 Lymphocytes/100 WBC Auto (Unsp spec) 19.9 % 19-41 [facility] Basophil percentageOrdered B y: Law Gold on 05-01-2023 Basophils/100 WBC (Bld) 0.8 % 0-1 [facility] Chloride [Moles/Vol] 106 mmol/L 98-[facility] Eosin[facility] WBC (Bld) 5.2 % 0-5 [facility] Glucose [Mass/Vol] 87 mg/dL 74-106 [facility] Hemoglobin (Bld) [Mass/Vol] 10.7 g/dL 12.0-15.0 [facility] Monocytes/100 WBC (Bld) 11.6 % 0-10 [facility] Neutrophils (Bld) [#/Vol] 3.8 10*3/uL 2.0-7.7 [facility] Neutrophils/100 WBC (Bld) 62.2 % 47-70 [facility] Potassium [Moles/Vol] 4.4 mmol/L 3.5-5.1 [facility] Sodium [Moles/Vol] 139 mmol/L 136-145 [facility] WBC (Bld) [#/Vol] 6.1 10*3/uL 4.4-11.0 [facility] Determination of erythrocyte mean corpuscular volume (MCV)Ordered By: Law Gold on 05-01-2023 MCV (RBC) [Entitic vol] 90.3 fL 81-99 [facility] Erythrocyte distribution wid th ratioOrdered By: Lwa Gold on 05-01-2023 Erythrocyte distribution width (RBC) [Ratio] 13.2 % 11.6-14.6 [facility] Erythrocyte distribution wid th standard deviationOrdered By: Law Gold on 05-01-2023 Erythrocyte distribution width (RBC) [Entitic vol] 43.1 fL 35.1-43.9 [facility] Hematocrit Auto (Bld) [Volum e fraction]Ordered By: Law Gold on 05-01-2023 Hematocrit (Bld) [Volume fraction] 34.3 % 37-47 [facility] Immature granulocytes/100 WB C Auto (Bld)Ordered By: Law Gold on 05-01-2023 Immature granulocytes/100 WBC (Bld) 0.300 % 0.0-0.9 [facility] Comment on above: IG% - Immature Granu locytes (promyelocytes, myelocytes and metamyelocytes) > 1% indicates that a LEFT SHIFT is Present. International normalized rat io (INR) calculationOrdered By: Law Gold on 05-01-2023 INR Coag (PPP) [Relative time] 1.3 {INR} [facility] Laboratory - Chemistry and C hemistry - challengeOrdered By: Law Gold on 05-01-2023 CO2 [Moles/Vol] 28.0 mmol/L 21.0-32.0 [facility] Urea nitrogen/Creatinine [Mass ratio] 18.9 mg/mg 10-20 [facility] Laboratory - CoagulationOrde red By: Law Gold on 05-01-2023 PT Coag (PPP) [Time] 16.1 s 11.7-14.9 [facility] Laboratory - Hematology and Cell countsOrdered By: Law Gold on 05-01-2023 MCH (RBC) [Entitic mass] 28.2 pg 27.0-32.0 [facility] MCHC (RBC) [Mass/Vol] 31.2 g/dL 32-36 [facility] Nucleated RBC/100 WBC (Bld) [Ratio] 0 % 0-5 [facility] Platelets (Bld) [#/Vol] 311 10*3/uL 150-450 [facility] No Panel InformationOrdered By: Law Gold on 05-01-2023 Estimated Creatinine Clearance Calc 51.35 ml/min [facility] Estimated GFR (MDRD) Amer 89 mL/min >60 [facility] Comment on above: GFR Calc Estimated GFR (MDRD) Non-Af Amer 74 mL/min >60 [facility] Comment on above: Non- GFR Calc Platelet mean volume [place] (Bld) [Entitic vol]Ordered By: Law Gold on 05-01-2023 Platelet mean volume (Bld) [Entitic vol] 8.4 fL 6.2-12.0 [facility] RBC Auto (Bld) [#/Vol]Ordere d By: Law Gold on 05-01-2023 RBC (Bld) [#/Vol] 3.80 10*6/uL 4.2-5.4 [facility] Serum or plasma calcium taylor urement (mass/volume)Ordered By: Law Gold on 05-01-2023 Calcium [Mass/Vol] 8.9 mg/dL 8.5-10.1 [facility] Serum or plasma creatinine m easurement (mass/volume)Ordered By: Law Gold on 05-01-2023 Creatinine [Mass/Vol] 0.79 mg/dL 0.55-1.02 [facility] Comment on above: The validity of the calculated GFR & GFRAA in patients over 70 years has not been determined. Clinical correlation is essential. Serum or plasma urea nitroge n measurement (mass/volume)Ordered By: Law Gold on 05-01-2023 Urea nitrogen [Mass/Vol] 15 mg/dL 7-18 [facility] Thin prep Papanicolaou smear with manual screeningOrdered By: Law Gold on 05-01-2023 Thin prep Papanicolaou smear with manual screening 5 5-15 [facility] Absolute lymphocyte countOrd ered By: Darline Lundy on 02-06-2023 Lymphocytes Auto (Unsp spec) [#/Vol] 2.15 10*3/uL 0.83-4.51 [facility] Basophil percentageOrdered B y: Darline Lundy on 02-06-2023 Basophils/100 WBC (Bld) 0.4 % 0-1 [facility] Chloride [Moles/Vol] 108 mmol/L 98-107 [facility] Eosinophils/100 WBC (Bld) 2.6 % 0-5 [facility] Glucose [Mass/Vol] 90 mg/dL 74-106 [facility] Neutrophils (Bld) [#/Vol] 3.9 10*3/uL 2.0-7.7 [facility] Neutrophils/100 WBC (Bld) 55.6 % 47-70 [facility] Potassium [Moles/Vol] 4.2 mmol/L 3.5-5.1 [facility] Sodium [Moles/Vol] 140 mmol/L 136-145 [facility] WBC (Bld) [#/Vol] 7.0 10*3/uL 4.4-11.0 [facility] Blood erythrocytes count (nu mber/volume)Ordered By: Darline Lundy on 02-06-2023 RBC (Bld) [#/Vol] 2.47 10*6/uL 4.2-5.4 [facility] Blood hemoglobin measurement (mass/volume)Ordered By: Darline Lundy on 02-06-2023 Hemoglobin (Bld) [Mass/Vol] 7.8 g/dL 12.0-15.0 [facility] Blood lymphocytes/100 leukoc ytesOrdered By: Darline Lundy on 02-06-2023 Lymphocytes/100 WBC (Bld) 30.5 % 19-41 [facility] Blood monocytes/100 leukocyt esOrdered By: Darilne Lundy on 02-06-2023 Monocytes/100 WBC (Bld) 10.2 % 0-10 [facility] Blood platelet mean volumeOr dered By: Darline Lundy on 02-06-2023 Platelet mean volume (Bld) [Entitic vol] 8.9 fL 6.2-12.0 [facility] COVID-19 virus antigen assay Ordered By: Darline Lundy on 02-06-2023 SARS-CoV-2 (COVID-19) Ag IA.rapid Ql (Resp) [facility] SARS-CoV-2 (COVID-19) Ag IA.rapid Ql (Resp) [facility] Determination of erythrocyte mean corpuscular volume (MCV)Ordered By: Darline Lundy on 02-06-2023 MCV (RBC) [Entitic vol] 90.7 fL 81-99 [facility] Hematocrit Auto (Bld) [Volum e fraction]Ordered By: Darline Lundy on 02-06-2023 Hematocrit (Bld) [Volume fraction] 22.4 % 37-47 [facility] Laboratory - Chemistry and C hemistry - challengeOrdered By: Darline Lundy on 02-06-2023 CO2 [Moles/Vol] 29.0 mmol/L 21.0-32.0 [facility] Urea nitrogen/Creatinine [Mass ratio] 25.2 mg/mg 10-20 [facility] Laboratory - Hematology and Cell countsOrdered By: Darline Lundy on 02-06-2023 Erythrocyte distribution width (RBC) [Entitic vol] 45.7 fL 35.1-43.9 [facility] Erythrocyte distribution width (RBC) [Ratio] 14.2 % 11.6-14.6 [facility] Immature granulocytes/100 WBC (Bld) 0.700 % 0.0-0.9 [facility] Comment on above: IG% - Immature Granu locytes (promyelocytes, myelocytes and metamyelocytes) > 1% indicates that a LEFT SHIFT is Present. MCH (RBC) [Entitic mass] 28.7 pg 27.0-32.0 [facility] Nucleated RBC/100 WBC (Bld) [Ratio] 0 % 0-5 [facility] MCHC Auto (RBC) [Mass/Vol]Or dered By: Darline Lundy on 02-06-2023 MCHC (RBC) [Mass/Vol] 31.7 g/dL 32-36 [facility] Comment on above: Delta: 33.5 on 02/0540 No Panel InformationOrdered By: Darline Lundy on 02-06-2023 Estimated Creatinine Clearance Calc 34.90 ml/min [facility] Estimated GFR (MDRD) Amer 115 mL/min >60 [facility] Comment on above: GFR Calc Estimated GFR (MDRD) Non-Af Amer 95 mL/min >60 [facility] Comment on above: Non- GFR Calc Platelets bldOrdered By: Maribeth Lundy on 02-06-2023 Platelets (Bld) [#/Vol] 227 10*3/uL 150-450 [facility] Serum or plasma calcium taylor urement (mass/volume)Ordered By: Darline Lundy on 02-06-2023 Calcium [Mass/Vol] 7.9 mg/dL 8.5-10.1 [facility] Serum or plasma creatinine m easurement (mass/volume)Ordered By: Darline Lundy on 02-06-2023 Creatinine [Mass/Vol] 0.64 mg/dL 0.55-1.02 [facility] Comment on above: The validity of the calculated GFR & GFRAA in patients over 70 years has not been determined. Clinical correlation is essential. Serum or plasma urea nitroge n measurement (mass/volume)Ordered By: Darline Lundy on 02-06-2023 Urea nitrogen [Mass/Vol] 16 mg/dL 7-18 [facility] Thin prep Papanicolaou smear with manual screeningOrdered By: Darline Lundy on 02-06-2023 Thin prep Papanicolaou smear with manual screening 3 5-15 [facility] Blood manual differential co mment interpretation (narrative result)Ordered By: Darline Lundy on 02-03-2023 Manual differential comment Enrique (Bld) [Interp] SCANNED [facility] Hypochromatic red blood cell detectionOrdered By: Darline Lundy on 02-03-2023 Hypochromia Ql (Bld) 1+ [facility] Review by pathologistOrdered By: Darline Lundy on 02-03-2023 Pathologist review Enrique (Unsp spec) [Interp] Reviewed [facility] Comment on above: Previous reported re sult: Francine keating Edited by: RGOOD on 02/03/23:1313Severe Normocytic anemia.Clinical correlation necessary.Lucas Smith M.D. 02/03/23 AMENDED REPORT 02/03/23 131 PATH REV previously reported as: Francine keating Basophil percentageOrdered B y: Jasmin Steele on 02-02-2023 Bilirubin [Mass/Vol] 1.10 mg/dL 0.20-1.00 [facility] Comment on above: For patients on eltr ombopag therapy, use of Dimension [place] TBIL is not recommended. Protein [Mass/Vol] 5.6 g/dL 6.4-8.2 [facility] Laboratory - Chemistry and C hemistry - challengeOrdered By: Jasmin Steele on 02-02-2023 ALP [Catalytic activity/Vol] 51 U/L 45-117 [facility] ALT [Catalytic activity/Vol] 7 U/L 13-56 [facility] Globulin (S) [Mass/Vol] 2.8 g/dL 2.2-4.2 [facility] No Panel InformationOrdered By: Davian Grier on 02-02-2023 Vitamin D 25-Hydroxy 34.0 ng/mL [facility] Comment on above: Vitamin D 25(OH) Sta tus Range Deficiency <20 ng/mL (50nmol/L) Insufficiency 20 - 30 ng/mL (50 - 75 nmol/L) Sufficiency 30 - 100 ng/mL (75 - 250 nmol/L) Toxicity >100 ng/mL (>250 nmol/L) Serum or plasma albumin taylor urement (mass/volume)Ordered By: Jasmin Steele on 02-02-2023 Albumin [Mass/Vol] 2.8 g/dL 3.2-5.0 [facility] Serum or plasma albumin/glob ulin mass ratioOrdered By: Jasmin Steele on 02-02-2023 Albumin/Globulin [Mass ratio] 1.0 {ratio} 0.9-2.4 [facility] Thin prep Papanicolaou smear with manual screeningOrdered By: Jasmin Ivette on 02-02-2023 Thin prep Papanicolaou smear with manual screening 16 U/L 15-37 [facility] Absolute lymphocyte countOrd ered By: Nkio Lorenz on 02-01-2023 Lymphocytes Auto (Unsp spec) [#/Vol] 1.35 10*3/uL 0.83-4.51 [facility] Basophil percentageOrdered B y: Niko Lorenz on 02-01-2023 Basophils/100 WBC (Bld) 1.0 % 0-1 [facility] Chloride [Moles/Vol] 107 mmol/L 98-107 [facility] Eosinophils/100 WBC (Bld) 1.7 % 0-5 [facility] Glucose [Mass/Vol] 98 mg/dL 74-106 [facility] Neutrophils (Bld) [#/Vol] 2.9 10*3/uL 2.0-7.7 [facility] Neutrophils/100 WBC (Bld) 60.2 % 47-70 [facility] Potassium [Moles/Vol] 4.2 mmol/L 3.5-5.1 [facility] Sodium [Moles/Vol] 141 mmol/L 136-145 [facility] WBC (Bld) [#/Vol] 4.8 10*3/uL 4.4-11.0 [facility] Blood erythrocytes count (nu mber/volume)Ordered By: Niko Lorenz on 02-01-2023 RBC (Bld) [#/Vol] 3.93 10*6/uL 4.2-5.4 [facility] Blood hemoglobin measurement (mass/volume)Ordered By: Niko Lorenz on 02-01-2023 Hemoglobin (Bld) [Mass/Vol] 10.8 g/dL 12.0-15.0 [facility] Blood lymphocytes/100 leukoc ytesOrdered By: Niko Lorenz on 02-01-2023 Lymphocytes/100 WBC (Bld) 28.0 % 19-41 [facility] Blood monocytes/100 leukocyt esOrdered By: Niko Lorenz on 02-01-2023 Monocytes/100 WBC (Bld) 8.9 % 0-10 [facility] Blood platelet mean volumeOr dered By: Niko Lorenz on 02-01-2023 Platelet mean volume (Bld) [Entitic vol] 8.7 fL 6.2-12.0 [facility] Determination of erythrocyte mean corpuscular volume (MCV)Ordered By: Niko Lorenz on 02-01-2023 MCV (RBC) [Entitic vol] 89.6 fL 81-99 [facility] Glucose Glucometer (BldC) [M ass/Vol]Ordered By: Darline Lundy on 02-01-2023 Glucose [Mass/Vol] 99 mg/dL 74-106 [facility] Comment on above: MANAGEMENT OF PATIEN T CARE PER NURSING PROTOCOL Hematocrit Auto (Bld) [Volum e fraction]Ordered By: Niko Lorenz on 02-01-2023 Hematocrit (Bld) [Volume fraction] 35.2 % 37-47 [facility] INR in Blood by Coagulation assayOrdered By: Niko Lorenz on 02-01-2023 INR Coag (Bld) [Relative time] 1.2 {INR} [facility] Laboratory - Chemistry and C hemistry - challengeOrdered By: Niko Lorenz on 02-01-2023 CO2 [Moles/Vol] 30.0 mmol/L 21.0-32.0 [facility] Urea nitrogen/Creatinine [Mass ratio] 18.8 mg/mg 10-20 [facility] Laboratory - Chemistry and C hemistry - challengeOrdered By: Jasmin Steele on 02-01-2023 Natriuretic peptide B (Bld) [Mass/Vol] 145.2 pg/mL 0-100 [facility] Laboratory - CoagulationOrde red By: Niko Lorenz on 02-01-2023 PT Coag (PPP) [Time] 14.8 s 11.7-14.9 [facility] Laboratory - Hematology and Cell countsOrdered By: Niko Lorenz on 02-01-2023 Erythrocyte distribution width (RBC) [Entitic vol] 41.8 fL 35.1-43.9 [facility] Erythrocyte distribution width (RBC) [Ratio] 12.6 % 11.6-14.6 [facility] Immature granulocytes/100 WBC (Bld) 0.200 % 0.0-0.9 [facility] Comment on above: IG% - Immature Granu locytes (promyelocytes, myelocytes and metamyelocytes) > 1% indicates that a LEFT SHIFT is Present. MCH (RBC) [Entitic mass] 27.5 pg 27.0-32.0 [facility] Nucleated RBC/100 WBC (Bld) [Ratio] 0 % 0-5 [facility] MCHC Auto (RBC) [Mass/Vol]Or dered By: Niko Lorenz on 02-01-2023 MCHC (RBC) [Mass/Vol] 30.7 g/dL 32-36 [facility] No Panel InformationOrdered By: Niko Lorenz on 02-01-2023 Estimated Creatinine Clearance Calc 41.05 ml/min [facility] Estimated GFR (MDRD) Amer 83 mL/min >60 [facility] Comment on above: GFR Calc Estimated GFR (MDRD) Non-Af Amer 68 mL/min >60 [facility] Comment on above: Non- GFR Calc Platelets bldOrdered By: Alina Lorenz on 02-01-2023 Platelets (Bld) [#/Vol] 255 10*3/uL 150-450 [facility] Serum or plasma calcium taylor urement (mass/volume)Ordered By: Niko Lorenz on 02-01-2023 Calcium [Mass/Vol] 8.6 mg/dL 8.5-10.1 [facility] Serum or plasma creatinine m easurement (mass/volume)Ordered By: Niko Lorenz on 02-01-2023 Creatinine [Mass/Vol] 0.85 mg/dL 0.55-1.02 [facility] Comment on above: The validity of the calculated GFR & GFRAA in patients over 70 years has not been determined. Clinical correlation is essential. Serum or plasma urea nitroge n measurement (mass/volume)Ordered By: Niko Lorenz on 02-01-2023 Urea nitrogen [Mass/Vol] 16 mg/dL 7-18 [facility] Thin prep Papanicolaou smear with manual screeningOrdered By: Niko Lorenz on 02-01-2023 Thin prep Papanicolaou smear with manual screening 4 5-15 [facility] Basophil percentageOrdered B y: Danielle Saulo on 01-05-2023 Chloride [Moles/Vol] 107 mmol/L 98-107 [facility] Glucose [Mass/Vol] 95 mg/dL 74-106 [facility] Potassium [Moles/Vol] 4.3 mmol/L 3.5-5.1 [facility] Sodium [Moles/Vol] 139 mmol/L 136-145 [facility] Laboratory - Chemistry and C hemistry - challengeOrdered By: Danielle Vernon on 01-05-2023 CO2 [Moles/Vol] 28.0 mmol/L 21.0-32.0 [facility] Urea nitrogen/Creatinine [Mass ratio] 17.8 mg/mg 10-20 [facility] No Panel InformationOrdered By: Danielle Vernon on 01-05-2023 Estimated GFR (MDRD) Amer 68 mL/min >60 [facility] Comment on above: GFR Calc Estimated GFR (MDRD) Non-Af Amer 56 mL/min >60 [facility] Comment on above: Non- GFR Calc Serum or plasma calcium taylor urement (mass/volume)Ordered By: Danielle Vernon on 01-05-2023 Calcium [Mass/Vol] 8.8 mg/dL 8.5-10.1 [facility] Serum or plasma creatinine m easurement (mass/volume)Ordered By: Danielle Vernon on 01-05-2023 Creatinine [Mass/Vol] 1.01 mg/dL 0.55-1.02 [facility] Comment on above: The validity of the calculated GFR & GFRAA in patients over 70 years has not been determined. Clinical correlation is essential. Serum or plasma urea nitroge n measurement (mass/volume)Ordered By: Danielle Vernon on 01-05-2023 Urea nitrogen [Mass/Vol] 18 mg/dL 7-18 [facility] Thin prep Papanicolaou smear with manual screeningOrdered By: Danielle Vernon on 01-05-2023 Thin prep Papanicolaou smear with manual screening 4 5-15 [facility] Absolute lymphocyte counton 2022 Lymphocytes Auto (Unsp spec) [#/Vol] 1.71 10*3/uL 0.83-4.51 [facility] Work Phone: Basophil percentageon 2021 Basophils/100 WBC (Bld) 0.8 % 0-1 [facility] Work Phone: Bilirubin [Mass/Vol] 0.60 mg/dL 0.20-1.00 [facility] Work Phone: Comment on above: For patients on eltr ombopag therapy, use of Dimension [place] TBIL is not recommended. Chloride [Moles/Vol] 106 mmol/L 98-107 [facility] Work Phone: Cholesterol [Mass/Vol] 171 mg/dL <200 [facility] Work Phone: Comment on above: <200 mg/dL Desirable 200-240 mg/dL Borderline >240 mg/dL High Risk Eosinophils/100 WBC (Bld) 1.8 % 0-5 [facility] Work Phone: Glucose [Mass/Vol] 93 mg/dL 74-106 [facility] Work Phone: Neutrophils (Bld) [#/Vol] 2.5 10*3/uL 2.0-7.7 [facility] Work Phone: Neutrophils/100 WBC (Bld) 51.0 % 47-70 [facility] Work Phone: Potassium [Moles/Vol] 4.6 mmol/L 3.5-5.1 [facility] Work Phone: Protein [Mass/Vol] 7.3 g/dL 6.4-8.2 [facility] Work Phone: Sodium [Moles/Vol] 139 mmol/L 136-145 [facility] Work Phone: Triglyceride [Mass/Vol] 76 mg/dL <199 [facility] Work Phone: Comment on above: The drugs N-Acetylcy steine and Metamizole may falsely depress this assay.Serum Triglycerides Reference Interval Normal <150 mg/dL Borderline high 150 - 199 mg/dL High 200 - 499 mg/dL Very High > or = 500 mg/dL WBC (Bld) [#/Vol] 5.0 10*3/uL 4.4-11.0 [facility] Work Phone: Blood erythrocytes count (nu mber/volume)on 2022 RBC (Bld) [#/Vol] 4.37 10*6/uL 4.2-5.4 [facility]: Blood hemoglobin measurement (mass/volume)on 2022 Hemoglobin (Bld) [Mass/Vol] 11.9 g/dL 12.0-15.0 [facility] Work Phone: Blood lymphocytes/100 leukoc yteson 2022 Lymphocytes/100 WBC (Bld) 34.5 % 19-41 [facility] Work Phone: [phone] Blood monocytes/100 leukocyt eson 2022 Monocytes/100 WBC (Bld) 11.7 % 0-10 [facility] Work Phone: Blood platelet mean volumeon 2022 Platelet mean volume (Bld) [Entitic vol] 9.1 fL 6.2-12.0 [facility] Work Phone: Determination of erythrocyte mean corpuscular volume (MCV)on 2022 MCV (RBC) [Entitic vol] 88.3 fL 81-99 [facility] Work Phone: [phone] Hematocrit Auto (Bld) [Volum e fraction]on 2022 Hematocrit (Bld) [Volume fraction] 38.6 % 37-47 [facility] Work Phone: Laboratory - Chemistry and C hemistry - challengeon 2022 ALP [Catalytic activity/Vol] 71 U/L 45-117 [facility] Work Phone: ALT [Catalytic activity/Vol] 16 U/L 13-56 [facility] Work Phone: [phone] CO2 [Moles/Vol] 28.0 mmol/L 21.0-32.0 [facility] Work Phone: Globulin (S) [Mass/Vol] 3.6 g/dL 2.2-4.2 [facility] Work Phone: Urea nitrogen/Creatinine [Mass ratio] 22.8 mg/mg 10-20 [facility] Work Phone: Bilirubin Ql (U) Small (1+) [facility] Work Phone: [phone] Glucose Ql (U) Negative [facility] Work Phone: [phone] Ketones Ql (U) Small (15+) [facility] Work Phone: [phone] pH (U) 6.5 [pH] [facility] Work Phone: [phone] Specific gravity (U) [Rel density] 1.025 [facility] Work Phone: [phone] Urobilinogen (U) [Mass/Vol] 1 mg/dL [facility] Work Phone: [phone] Laboratory - Hematology and Cell countson 2022 Erythrocyte distribution width (RBC) [Entitic vol] 41.6 fL 35.1-43.9 [facility] Work Phone: Erythrocyte distribution width (RBC) [Ratio] 12.7 % 11.6-14.6 [facility] Work Phone: Immature granulocytes/100 WBC (Bld) 0.200 % 0.0-0.9 [facility] Work Phone: Comment on above: IG% - Immature Granu locytes (promyelocytes, myelocytes and metamyelocytes) > 1% indicates that a LEFT SHIFT is Present. MCH (RBC) [Entitic mass] 27.2 pg 27.0-32.0 [facility] Work Phone: Nucleated RBC/100 WBC (Bld) [Ratio] 0 % 0-5 [facility] Work Phone: Hemoglobin Ql (U) Negative [facility] Work Phone: Laboratory - Specimen inform ationon 2022 Clarity (U) Clear [facility] Work Phone: Color (U) STRAW [facility] Work Phone: Laboratory - Urinalysison Nitrite Ql (U) Negative [facility] Work Phone: Protein Ql (U) Trace [facility] Work Phone: [phone] MCHC Auto (RBC) [Mass/Vol]on 2022 MCHC (RBC) [Mass/Vol] 30.8 g/dL 32-36 [facility] Work Phone: No Panel Informationon 03-26 Estimated GFR (MDRD) Amer 68 mL/min >60 [facility] Work Phone: Comment on above: GFR Calc Estimated GFR (MDRD) Non-Af Amer 56 mL/min >60 [facility] Work Phone: Comment on above: Non- GFR Calc Thyroid Stimulating Hormone (TSH) 2.51 uIU/mL 0.358-3.74 [facility] Work Phone: Urine Leukocytes Negatve [facility] Work Phone: Urine Non-Hemolyzed Blood [facility] Work Phone: Platelets bldon 2022 Platelets (Bld) [#/Vol] 311 10*3/uL 150-450 [facility] Work Phone: Serum or plasma albumin taylor urement (mass/volume)on 2022 Albumin [Mass/Vol] 3.7 g/dL 3.2-5.0 [facility] Work Phone: [phone] Serum or plasma albumin/glob ulin mass ratioon 2022 Albumin/Globulin [Mass ratio] 1.0 {ratio} 0.9-2.4 [facility] Work Phone: Serum or plasma calcium taylor urement (mass/volume)on 2022 Calcium [Mass/Vol] 9.0 mg/dL 8.5-10.1 [facility] Work Phone: Serum or plasma cholesterol in HDL measurement (mass/volume)on 2022 Cholesterol in HDL [Mass/Vol] 100 mg/dL >40 [facility] Work Phone: Comment on above: The drugs N-Acetylcy steine and Metamizole may falsely depress this assay. Reference Range HDL <40 mg/dL Low HDL Cholesterol HDL >or= 60 mg/dL High HDL Cholesterol Serum or plasma cholesterol in VLDL measurement (mass/volume)on 2022 Cholesterol in VLDL [Mass/Vol] 15 mg/dL 5-40 [facility] Work Phone: Serum or plasma creatinine m easurement (mass/volume)on 2022 Creatinine [Mass/Vol] 1.01 mg/dL 0.55-1.02 [facility] Work Phone: Comment on above: The validity of the calculated GFR & GFRAA in patients over 70 years has not been determined. Clinical correlation is essential. Serum or plasma low density lipoprotein (LDL) cholesterol measurement (mass/volume)on 2022 Cholesterol in LDL [Mass/Vol] 56 mg/dL 0-130 [facility] Work Phone: Serum or plasma urea nitroge n measurement (mass/volume)on 2022 Urea nitrogen [Mass/Vol] 23 mg/dL 7-18 [facility] Work Phone: Serum or plasma uric acid me asurement (mass/volume)on 2022 Urate [Mass/Vol] 3.8 mg/dL 2.6-6.0 [facility] Work Phone: Comment on above: The drugs N-Acetylcy steine and Metamizole may falsely depress this assay. Thin prep Papanicolaou smear with manual screeningon 2022 Thin prep Papanicolaou smear with manual screening 27 U/L 15-37 [facility] Work Phone: Thin prep Papanicolaou smear with manual screening 5 5-15 [facility] Work Phone: [phone] Vital Signs Date Time Vital Sign Value Performing Clinician Faci lity 01-25-2025 10:36-0400 Body temperature 98.4 [degF] [facility] 01-25-2025 10:36-0400 Diastolic blood pressure 52 mm[Hg] [facility] 01-25-2025 10:36-0400 Heart rate 83 /min [facility] 01-25-2025 10:36-0400 Respiratory rate 16 /min [facility] 01-25-2025 10:36-0400 SaO2% (BldA) [Mass fraction] 98 % [facility] 01-25-2025 10:36-0400 Systolic blood pressure 113 mm[Hg] [facility] 01-25-2025 06:00-0400 Body mass index (BMI) [Ratio] 30.7 kg/m2 [facility] 01-25-2025 06:00-0400 Body weight 75.7 kg [facility] 01-22-2025 08:05-0400 Inhaled oxygen flow rate 2 L/min [facility] 01-20-2025 11:58-0400 Body height 157 cm [facility] 12-28-2024 13:11-0400 Body height 157.48 cm [facility] 12-28-2024 13:11-0400 Body mass index (BMI) [Ratio] 29.4 kg/m2 [facility] 12-28-2024 13:11-0400 Body weight 73.02 kg [facility] 12-28-2024 13:11-0400 Diastolic blood pressure 60 mm[Hg] [facility] 12-28-2024 13:11-0400 Heart rate 83 /min Tressa Bobby [facility] 12-28-2024 13:11-0400 Systolic blood pressure 115 mm[Hg] Tressa Rosales [facility] 09-27-2024 08:22-0400 Body height 157.48 cm Didi Tai [employer] Work Phone: [facility] 09-27-2024 08:22-0400 Body mass index (BMI) [Ratio] 29.4 kg/m2 Didi Lujan [employer] Work Phone: [facility] 09-27-2024 08:22-0400 Body weight 73.02 kg Didi Lujan [employer] Work Phone: [facility] 09-27-2024 08:22-0400 Diastolic blood pressure 72 mm[Hg] Didi Lujan [employer] Work Phone: [facility] 09-27-2024 08:22-0400 Heart rate 72 /min Didi Lujan [employer] Work Phone: [facility] 09-27-2024 08:22-0400 Respiratory rate 16 /min Didi Lujan [employer] Work Phone: [facility] 09-27-2024 08:22-0400 Systolic blood pressure 125 mm[Hg] Didi Lujan [employer] Work Phone: [facility] 07-29-2024 14:17-0400 Diastolic blood pressure 65 mm[Hg] Armen Madison MD Work Phone: [facility] 07-29-2024 14:17-0400 Heart rate 68 /min Armen Madison MD Work Phone: [facility] 07-29-2024 14:17-0400 Systolic blood pressure 110 mm[Hg] Armen Madison MD Work Phone: [facility] 06-28-2024 07:42-0400 Body height 157.5 cm Em Sheldon Work Phone: [facility] 06-28-2024 07:42-0400 Body mass index (BMI) [Ratio] 28.42 kg/m2 Em Flynn APRN.[employer] Work Phone: [facility] 06-28-2024 07:42-0400 Body weight 70.49 kg Em Flynn APRN.CN P Work Phone: [facility] Comment on above: Per pt. Did not get weighed today 06-28-2024 07:42-0400 Diastolic blood pressure 74 mm[Hg] Em Flynn APRN.[employer] CLERK Work Phone: [facility] 06-28-2024 07:42-0400 Heart rate 76 /min Em Flynn APRN.CN P Work Phone: [facility] 06-28-2024 07:42-0400 SaO2% (BldA) [Mass fraction] 99 % Em Flynn APRN.[employer] R[employer] CLERK Work Phone: [facility] 06-28-2024 07:42-0400 Systolic blood pressure 112 mm[Hg] Em Flynn APRN.[employer] RENTAL CLERK Work Phone: [facility] 03-16-2024 08:37-0500 Body height 157.48 cm Alexandra Arreguin [employer] Work Phone: [facility] 03-16-2024 08:37-0500 Body mass index (BMI) [Ratio] 28.7 kg/m2 Alexandra Arreguin [employer] Work Phone: [facility] 03-16-2024 08:37-0500 Body weight 71.21 kg Alexandra Arreguin [employer] Work Phone: [facility] 03-16-2024 08:37-0500 Diastolic blood pressure 62 mm[Hg] Alexandra Arreguin [employer] Work Phone: [facility] 03-16-2024 08:37-0500 Heart rate 59 /min Alexandra Arreguin [employer] Work Phone: [facility] 03-16-2024 08:37-0500 Respiratory rate 18 /min Alexandra Rodríguez [employer] Work Phone: [facility] 03-16-2024 08:37-0500 Systolic blood pressure 97 mm[Hg] Alexandrajenny MccollumArreguin [employer] Work Phone: [facility] 12-31-2023 09:11-0400 Body height 157.5 cm Em Flynn APRN.CN P Work Phone: [facility] 12-31-2023 09:11-0400 SaO2% (BldA) [Mass fraction] 99 % Em Flynn APRN.[employer] CLERK Work Phone: [facility] 09-29-2023 08:59-0400 Body height 157.5 cm Em Flynn APRN.CN P Work Phone: [facility] 09-29-2023 08:59-0400 Body mass index (BMI) [Ratio] 29.81 kg/m2 Em Flynn APRN.[employer] R[employer] CLERK Work Phone: [facility] 09-29-2023 08:59-0400 Body weight 73.94 kg Em Flynn APRN.CN P Work Phone: [facility] Comment on above: Per pt. Did not get weighed 09-29-2023 08:59-0400 Diastolic blood pressure 69 mm[Hg] Em Flynn APRN.[employer] R[employer] CLERK Work Phone: [facility] 09-29-2023 08:59-0400 Heart rate 58 /min Em Flynn APRN.CN P Work Phone: [facility] 09-29-2023 08:59-0400 SaO2% (BldA) [Mass fraction] 98 % Em Flynn APRN.[employer] R[employer] CLERK Work Phone: [facility] 09-29-2023 08:59-0400 Systolic blood pressure 106 mm[Hg] Em Flynn APRN.[employer] RENTAL CLERK Work Phone: [facility] 08-27-2023 13:39-0400 Body height 157.5 cm Stephan Sheehan PA-C Work Phone: [facility] 08-27-2023 13:39-0400 Body mass index (BMI) [Ratio] 30.12 kg/m2 Stephan Sheehan PA-C Work Phone: [facility] 08-27-2023 13:39-0400 Body weight 74.7 kg Stephan Sheehan PA-C Work Phone: [facility] 08-27-2023 13:39-0400 Diastolic blood pressure 57 mm[Hg] Stephan Sheehan PA-C Work Phone: [facility] 08-27-2023 13:39-0400 Heart rate 60 /min Stephan Sheehan PA-C Work Phone: [facility] 08-27-2023 13:39-0400 Respiratory rate 18 /min Stephan Sheehan PA-C Work Phone: [facility] 08-27-2023 13:39-0400 SaO2% (BldA) [Mass fraction] 100 % Stephan Sheehan PA-C Work Phone: [facility] 08-27-2023 13:39-0400 Systolic blood pressure 130 mm[Hg] Stephan Sheehan PA-C Work Phone: [facility] 07-06-2023 08:13-0400 Body weight 73.94 kg Em Flynn APRN.CN P Work Phone: [facility] 07-06-2023 08:13-0400 Diastolic blood pressure 82 mm[Hg] Em Flynn APRN.[employer] R[employer]AL CLERK Work Phone: [facility] 07-06-2023 08:13-0400 Heart rate 72 /min Em Flynn APRN.CN P Work Phone: [facility] 07-06-2023 08:13-0400 SaO2% (BldA) [Mass fraction] 99 % Em Flynn APRN.[employer] R[employer]AL CLERK Work Phone: [facility] 07-06-2023 08:13-0400 Systolic blood pressure 128 mm[Hg] Em Flynn APRN.[employer]AB[employer] RENTAL CLERK Work Phone: [facility] 05-01-2023 18:05-0500 Diastolic blood pressure 69 mm[Hg] [employer] Alexandra Arreguin [employer] Work Phone: [facility] 05-01-2023 18:05-0500 Heart rate 67 /min [employer] Alexandra Arreguin [employer] Work Phone: [facility] 05-01-2023 18:05-0500 Respiratory rate 16 /min [employer] Aelxandra Arreguin [employer] Work Phone: [facility] 05-01-2023 18:05-0500 SaO2% (BldA) [Mass fraction] 98 % [employer] Alexandra Arreguin [employer] Work Phone: [facility] 05-01-2023 18:05-0500 Systolic blood pressure 120 mm[Hg] [employer] Alexandra Arreguin [employer] Work Phone: [facility] 05-01-2023 13:26-0500 Body height 157.48 cm [employer] Alexandra Arreguin [employer] Work Phone: [facility] 05-01-2023 13:26-0500 Body mass index (BMI) [Ratio] 30.2 kg/m2 [employer] Alexandra Arreguin [employer] Work Phone: [facility] 05-01-2023 13:26-0500 Body temperature 98.4 [degF] [employer] Alexandra Arreguin [employer] Work Phone: [facility] 05-01-2023 13:26-0500 Body weight 74.84 kg [employer] Alexandra Arreguin [employer] Work Phone: [facility] 02-06-2023 13:59-0400 Body temperature 98.6 [degF] [employer] Alexandra Arreguin [employer] Work Phone: [facility] 02-06-2023 13:59-0400 Diastolic blood pressure 52 mm[Hg] [employer] Alexandra Arreguin [employer] Work Phone: [facility] 02-06-2023 13:59-0400 Heart rate 73 /min [employer] Alexandra Arreguin [employer] Work Phone: [facility] 02-06-2023 13:59-0400 Respiratory rate 16 /min [employer] Alexandra Arreguin [employer] Work Phone: [phone] [address] 02-06-2023 13:59-0400 SaO2% (BldA) [Mass fraction] 100 % [employer] Alexandra Arreguin [employer] Work Phone: [phone] [place] [address] 02-06-2023 13:59-0400 Systolic blood pressure 92 mm[Hg] [employer] Alexandra Arreguin [employer] Work Phone: [phone] [place] [address] 02-06-2023 05:46-0400 Body mass index (BMI) [Ratio] 31.1 kg/m2 [employer] Alexandra Arreguin [employer] Work Phone: [phone](838)[phone] [place] [address] 02-06-2023 05:46-0400 Body weight 76.6 kg [employer] Alexandra Arreguin [employer] Work Phone: 6(085)[phone] [place] [address] 02-02-2023 11:48-0400 Body height 157.48 cm [employer] Alexandra Arreguin [employer] Work Phone: [phone] [address] 02-01-2023 13:44-0400 Body height 157.48 cm [employer] Alexandra Arreguin [employer] Work Phone: 3([phone])[phone] [place] [address] 02-01-2023 13:44-0400 Body mass index (BMI) [Ratio] 31.1 kg/m2 [employer] Alexandra Arreguin [employer] Work Phone: [phone])[phone] [place] [address] 02-01-2023 13:44-0400 Body temperature 98.4 [degF] [employer] Alexandra Arreguin [employer] Work Phone: [facility] 02-01-2023 13:44-0400 Body weight 77.1 kg [employer] Alexandra Arreguin [employer] Work Phone: [phone] [place] [address] 02-01-2023 13:44-0400 Diastolic blood pressure 79 mm[Hg] [employer] Alexandra Arreguin [employer] Work Phone: [facility] 02-01-2023 13:44-0400 Heart rate 77 /min [employer] Alexandra Arreguin [employer] Work Phone: [facility] 02-01-2023 13:44-0400 Respiratory rate 20 /min [employer] Alexandra Arreguin [employer] Work Phone: [facility] 02-01-2023 13:44-0400 SaO2% (BldA) [Mass fraction] 99 % [employer] Alexandra Arreguin [employer] Work Phone: [facility] 02-01-2023 13:44-0400 Systolic blood pressure 165 mm[Hg] [employer] Alexandra Arreguin [employer] Work Phone: [facility] 01-20-2023 14:48-0400 Body height 157.5 cm Em Flynn APRN.CN P Work Phone: [facility] 01-20-2023 14:48-0400 Body weight 70.76 kg Em Flynn APRN.CN P Work Phone: [facility] 01-20-2023 14:48-0400 SaO2% (BldA) [Mass fraction] 100 % Em Flynn APRN.[employer] R[employer]AL CLERK Work Phone: [facility] 12-29-2022 13:39-0400 Body mass index (BMI) [Ratio] 28 kg/m2 [employer] Alexandra rAreguin [employer] Work Phone: [facility] 12-29-2022 13:39-0400 Body weight 69.39 kg [employer] Alexandra Arreguin [employer] Work Phone: [facility] 12-29-2022 13:39-0400 Diastolic blood pressure 78 mm[Hg] [employer] Alexandra Arreguin [employer] Work Phone: [facility] 12-29-2022 13:39-0400 Heart rate 60 /min [employer] Alexandra Arreguin [employer] Work Phone: [facility] 12-29-2022 13:39-0400 Respiratory rate 16 /min [employer] Alexandra Arreguin [employer] Work Phone: [facility] 12-29-2022 13:39-0400 Systolic blood pressure 152 mm[Hg] [employer] Alexandra Arreguin [employer] Work Phone: [facility] 10-09-2022 12:48-0400 Body height 157.5 cm Linden Flynn MD Work Phone: [facility] 10-09-2022 12:48-0400 Body weight 68.63 kg Linden Flynn MD Work Phone: [facility] 10-09-2022 12:48-0400 SaO2% (BldA) [Mass fraction] 99 % Linden Flynn MD Work Phone: [facility] 2022 14:59-0500 Body height 157.48 cm [facility] Work Phone: 2022 14:59-0500 Body mass index (BMI) [Ratio] 25.2 kg/m2 [facility] Work Phone: 2022 14:59-0500 Body temperature 97.7 [degF] [facility] Work Phone: 2022 14:59-0500 Body weight 62.59 kg [facility] Work Phone: 2022 14:59-0500 Diastolic blood pressure 70 mm[Hg] [facility] Work Phone: 2022 14:59-0500 Heart rate 138 /min [facility] Work Phone: 2022 14:59-0500 Respiratory rate 18 /min [facility] Work Phone: 2022 14:59-0500 SaO2% (BldA) [Mass fraction] 100 % [facility] Work Phone: 2022 14:59-0500 Systolic blood pressure 130 mm[Hg] [facility] Work Phone: 02-24-2022 16:15-0500 Body mass index (BMI) [Ratio] 25.6 kg/m2 [facility] Work Phone: 02-24-2022 16:15-0500 Body temperature 97.5 [degF] [facility] Work Phone: 02-24-2022 16:15-0500 Body weight 63.5 kg [facility] Work Phone: 02-24-2022 16:15-0500 Diastolic blood pressure 60 mm[Hg] [facility] Work Phone: 02-24-2022 16:15-0500 Heart rate 85 /min [facility] Work Phone: 02-24-2022 16:15-0500 Respiratory rate 18 /min [facility] Work Phone: 02-24-2022 16:15-0500 SaO2% (BldA) [Mass fraction] 100 % [facility] Work Phone: 02-24-2022 16:15-0500 Systolic blood pressure 122 mm[Hg] [facility] Work Phone: Encounters Encounter Date Encounter Type Care Provider Facility Start: 02-15-2025 End: 02-15-2025 [facility] Start: 01-25-2025 Non-patient / Non-visit Dr. Estella Kelly MD -[facility] Work Phone: Start: 01-24-2025 Non-patient / Non-visit Dr. Estella Kelly MD -[facility] Work Phone: Start: 01-23-2025 Non-patient / Non-visit Dr. Estella Kelly MD -[facility] Work Phone: Start: 01-22-2025 Non-patient / Non-visit Dr. Estella Kelly MD -[facility] Work Phone: Start: 01-21-2025 Non-patient / Non-visit Dr. Estella Kelly MD -[facility] Work Phone: Start: 01-20-2025 Non-patient / Non-visit Dr. Danielle anderson MD -[facility] Work Phone: Start: 01-20-2025 Non-patient / Non-visit Dr. Zeus Martel DO -[facility] Work Phone: Start: 01-20-2025 ambulatory Davian Kelly Fac ility:[facility] Start: 01-20-2025 End: 01-25-2025 Evaluation and management of inpatient Dr. Davian Kelly MD -[facility] 3 Work Phone: Start: 01-19-2025 End: 01-20-2025 Emergency department patient visit ALEXANDRA ARREGUIN Facility:[facility] Start: 12-28-2024 End: 12-28-[address] Alexandria Dejesus MD -[facility] Work Phone: Start: 12-28-2024 End: 12-28-2024 ambulatory Tressa HALL -[facility] Start: 11-07-2024 ambulatory Danielle Vernon Facility:[facility] Start: 11-07-2024 Non-patient / Non-visit Dr. Danielle anderson MD -[facility] Start: 11-03-2024 ambulatory Danielle Vernon Facility:[facility] Start: 11-03-2024 Non-patient / Non-visit Dr. Danielle anderson MD -[facility] Start: 11-03-2024 End: 11-03-2024 ambulatory Tressa HALL -[facility] Start: 11-03-2024 End: 11-03-[address] Danielle Vernon MD -[facility] Work Phone: Start: 11-03-2024 End: 11-03-2024 ambulatory Danielle Vernon Facility:[facility] Start: 09-27-2024 End: 09-27-[address] Danielle Vernon MD -[facility] Work Phone: Start: 09-27-2024 End: 09-27-2024 ambulatory Didi Lujan NP-C Work Phone: [facility] Work Phone: Start: 07-29-2024 End: 07-29-2024 ambulatory ALEXANDRA Anay ARREGUIN Facility:[facility] Start: 07-29-2024 End: 07-29-2024 Office outpatient new 30 minutes Armen Madison MD Work Phone: [facility] Comment on above: Numbness and tinglin g of both feet Start: 07-29-2024 End: 07-29-2024 ambulatory ALEXANDRA Anay ARREGUIN Facility:[facility] Start: 06-28-2024 End: 06-28-2024 ambulatory ALEXANDRA Anay ARREGUIN Facility:[facility] Start: 06-28-2024 End: 06-28-2024 Patient encounter procedure Em Flynn APRN.CNP Work Phone: Neurology Comment on above: Dysphagia, unspecifi ed type (Primary Dx); 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 Work Phone: Start: 06-03-2024 End: 06-03-2024 ambulatory Didi Lujan NP Facility:[facility] Start: 03-16-2024 End: 03-16-[address] Danielle Vernon MD -[facility] Work Phone: Start: 03-16-2024 End: 03-16-2024 ambulatory Danielle Vernon Facility:[facility] Start: 12-31-2023 End: 12-31-2023 Patient encounter procedure Em Flynn APRN.BABY STROLLER RENTAL CLERK Work Phone: Neurology Comment on above: Dysphagia, unspecifi ed type (Primary Dx); Parkinson's disease without dyskinesia or fluctuating manifestations (HCC); Orthostatic hypotension Start: 11-20-2023 Documentation procedure Mammog dae Coordinator [facility] Start: 11-20-2023 Letter encounter Mammography Coordinator [facility] Start: 11-20-2023 End: 11-20-2023 Subsequent hospital visit by physician Screening Ultrasound Main Work Phone: Mammography Start: 10-21-2023 Telephone encounter Stephan juan PA-C Work Phone: [facility] Comment on above: [employer]r Start: 10-16-2023 Telephone encounter Yury Jasso MD Work Phone: Orthopaedics Comment on above: Patient Update; Radha ent Question; Orders Start: 10-02-2023 End: 10-02-2023 Patient encounter procedure Yury Jasso MD Work Phone: Orthopedics Comment on above: Acute pain of left s moisesulder Start: 09-29-2023 End: 09-29-2023 Patient encounter procedure Em Flynn APRN.BABY STROLLER RENTAL CLERK Work Phone: Neurology Comment on above: Parkinson's disease without dyskinesia or fluctuating manifestations (HCC) (Primary Dx); Orthostatic hypotension; Hallucinations; Dysphagia, unspecified type Start: 09-29-2023 ambulatory UNKNOWN PROVIDER Facili ty:[facility] Start: 09-29-2023 End: 09-29-2023 Subsequent hospital visit by physician [facility] Work Phone: Radiology Comment on above: Chronic left shoulde r pain [M25.512, G89.29] Start: 09-23-2023 ambulatory DIDI LUJAN Facilit y:[facility] Start: 09-23-2023 End: 09-23-2023 Subsequent hospital visit by physician Screen/Diagnostic Mammo [facility] Work Phone: Mammography Comment on above: Inconclusive mammogr am [R92.2] Start: 09-14-2023 Orders Only Yury Jasso MD Work Phone: Orthopedics Comment on above: Chronic left shoulde r pain (Primary Dx) Start: 09-02-2023 Telephone encounter Stephan juan PA-C Work Phone: [facility] Start: 08-27-2023 End: 08-27-2023 Patient encounter procedure Stephan Sheehan PA-C Work Phone: [facility] Comment on above: Acute pain of left s houlder (Primary Dx); Protrusion of cervical intervertebral disc; Pain in left elbow Start: 08-14-2023 Documentation procedure Mammog dae Coordinator [facility] Start: 08-14-2023 Letter encounter Mammography Coordinator [facility] Start: 08-13-2023 ambulatory DIDI LUJAN Facilit y:[facility] Start: 08-13-2023 End: 08-13-2023 Subsequent hospital visit by physician Screen/Diagnostic Mammo [facility] Work Phone: Mammography Comment on above: Encounter for screen ing mammogram for malignant neoplasm of breast [Z12.31] Asymptomatic [place] radha state [Z78.0] Start: 08-03-2023 Telephone encounter Em villarreal APRN.BABY STROLLER RENTAL CLERK Work Phone: Neurology Comment on above: Results Start: 07-29-2023 End: 07-29-2023 Subsequent hospital visit by physician [facility].5t[facility] Start: 07-06-2023 End: 07-06-2023 Patient encounter procedure Em Flynn APRN.BABY STROLLER RENTAL CLERK Work Phone: Neurology Comment on above: Parkinson's disease without dyskinesia or fluctuating manifestations (HCC) (Primary Dx); Orthostatic hypotension; Dysphagia, unspecified type; Left arm pain; Numbness and tingling in left arm Start: 05-01-2023 End: 05-01-2023 Emergency department patient visit [employer] Alexandra Arreguin [employer] [facility] Start: 02-06-2023 Non-patient / Non-visit [employer] D ora Arreguin [employer] Work Phone: [facility] Work Phone: Start: 02-05-2023 Non-patient / Non-visit [employer] D ora Arreguin [employer] Work Phone: [facility] Work Phone: Start: 02-04-2023 Non-patient / Non-visit [employer] D ora Arreguin [employer] Work Phone: [facility] Work Phone: Start: 02-03-2023 Non-patient / Non-visit [employer] D ora Arreguin [employer] Work Phone: [facility] Work Phone: Start: 02-02-2023 Non-patient / Non-visit [employer] D ora Arreguin [employer] Work Phone: [facility] Work Phone: Start: 02-01-2023 End: 02-06-2023 Evaluation and management of inpatient [employer] Alexandra Arreguin [employer] [facility] Work Phone: Start: 01-20-2023 End: 01-20-2023 Patient encounter procedure Em Flynn APRN.BABY STROLLER RENTAL CLERK Work Phone: Neurology Comment on above: Parkinson's disease without dyskinesia or fluctuating manifestations (Primary Dx); Hallucinations; Orthostatic hypotension; Insomnia, unspecified type Start: 01-05-2023 End: 01-05-2023 Patient encounter procedure [employer] Alexandra Arreguin [employer] Work Phone: [facility] Work Phone: Start: 12-29-2022 End: 12-29-2022 Patient encounter procedure [employer] Alexandra Arreguin NP Work Phone: [facility] Work Phone: Start: 10-09-2022 End: 10-09-2022 Office outpatient new 45 minutes Linden Flynn MD Work Phone: Neurology Comment on above: Parkinson's disease (HCC) (Primary Dx); Argyria of skin, accidental or unintentional, sequela; Depression, unspecified depression type Start: 2022 End: 2022 ambulatory [facility] Work Phone: Start: 2022 End: 2022 Patient encounter procedure [facility], Specimen Procedures Date Procedure Procedure Detail Performing Clinician Start: 01-25-2025 [facility] Start: 01-24-2025 Estimated creatinine clearance Tressadennis Rosales OLS Start: 01-23-2025 Total iron binding c apacity measurement Tressajenny Rosales OLS Start: 01-20-2025 Plain X-ray of hip Shob Bobby OLS Start: 01-20-2025 Fluoroscopic guidance S [facility] Bobby OLS Start: 01-20-2025 [facility] Start: 01-20-2025 Prosthetic uncemente d hemiarthroplasty of hip [facility] Bobby OLS Start: 01-20-2025 Urnls dip stick/tabl et reagent auto microscopy Tressajenny Rosales OLS Start: 01-20-2025 Serum inorganic phos phate measurement Tressajenny Rosales OLS Start: 11-03-2024 Cardiovascular stres s test using pharmacologic stress agent Tressa Rosales OLS Start: 06-03-2024 Radionuclide study of abdomen Alexandra Arreguin [employer] Work Phone: Start: 10-02-2023 Arthrocentesis aspir &/inj major jt/bursa w/o us Yury Jasso MD Work Phone: Start: 09-29-2023 Radex shoulder compl ete minimum 2 views Claudia Manuel PA-C Work Phone: Start: 09-23-2023 Us breast uni real t jason with image limited [facility] Provider Start: 07-29-2023 Mri spinal canal cer vical w/o contrast matrl Em Flynn SCREEN EXAMINERJorgitoBABY STROLLER RENTAL CLERK Work Phone: Start: 05-01-2023 CT cervical spine wi thout contrast [employer] Alexandra Arreguin [employer] Work Phone: Start: 05-01-2023 CT of head without contrast [employer] Alexandra Arreguin [employer] Work Phone: Start: 02-06-2023 Viral antigen assay [employer]- C Alexandra Arreguin [employer] Work Phone: Start: 02-02-2023 Plain X-ray of hip [employer] Alexandra Arreguin [employer] Work Phone: Start: 02-02-2023 Open reduction of fr acture of femur with internal fixation [employer] Alexandra Arreguin [employer] Work Phone: Start: 02-02-2023 Fluoroscopic guidance N P-C Alexandra Arreguin [employer] Work Phone: Start: 02-01-2023 Plain x-ray of elbow [employer] -C Alexandra Arreguin [employer] Work Phone: Start: 02-01-2023 CT of head without contrast [employer] Alexandra Arreguin [employer] Work Phone: Start: 02-01-2023 Plain chest X-ray [employer] Alexandra Arreguin [employer] Work Phone: Start: 02-01-2023 Plain X-ray of femur [employer] -C Alexandra Arreguin [employer] Work Phone: Plan of Treatment Date Care Activity Detail Author Start: 01-25-2025 Patient discharge [facility] Start: 01-20-2025 Provision of overbed trapeze [facility] Start: 01-20-2025 End: 01-20-2025 [facility] Start: 01-20-2025 Ambulation therapy management [facility] Start: 01-20-2025 Application of device [facility] Start: 01-20-2025 Assessment of risk of venous thromboembolism [facility] Start: 01-20-2025 Catheterization of vein [facility] Start: 01-20-2025 Exercises [facility] Start: 01-20-2025 Following clinical pathway protocol [facility] Start: 01-20-2025 Introduction of urinary catheter [facility] Start: 01-20-2025 Measuring intake and output [facility] Start: 01-20-2025 Neurovascular assessment [facility] Start: 01-20-2025 Patient education [facility] Start: 01-20-2025 Procedure discontinued [facility] Start: 01-20-2025 Provision of activity privileges [facility] Start: 01-20-2025 Recommendation to continue with treatment [facility] Start: 01-20-2025 Referral for physical therapy [facility] Start: 01-20-2025 Referral to occupational therapist [facility] Start: 01-20-2025 Vital signs measurements [facility] Start: 01-20-2025 Wound care [facility] Start: 01-20-2025 Care planning and problem solving actions [facility] Start: 01-20-2025 [facility] Start: 01-20-2025 Application of intermittent pneumatic compression device [facility] Start: 01-20-2025 Following clinical pathway protocol [facility] Start: 01-20-2025 Oxygen therapy [facility] Start: 01-20-2025 Referral to service [facility] Start: 01-20-2025 Admission procedure [facility] Start: 01-20-2025 Assessment of risk of venous thromboembolism [facility] Start: 01-20-2025 Insertion of catheter into peripheral vein [facility] Start: 01-20-2025 Providing care according to standard [facility] Start: 01-20-2025 Consultation [facility] Start: 01-20-2025 Documentation procedure [facility] Start: 01-20-2025 Measuring intake and output [facility] Start: 01-20-2025 End: 01-20-2025 [facility] Start: 12-29-2024 End: 12-29-2024 Patient encounter procedure 12/29/2024 10:00 AM EDT Office Visit Neurology [address] [address] Em Flynn APRN.BABY STROLLER RENTAL CLERK [address] [address] 6 month follow up Neurology Comment on above: 6 month follow up Start: 07-29-2024 End: 07-29-2024 Patient encounter procedure 07/29/2024 3:00 PM EDT Office Visit Neuromuscular [facility] [address] [place] [address] Armen Madison MD [address] [place] [address] 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 Neuromuscular [facility] Comment on above: 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 Start: 07-29-2024 End: 10-28-2024 Cobalamin (Vitamin B12) [Mass/volume] in Serum or Plasma [facility] Comment on above: Expected: 07/29/2024, Expires: Start: 07-29-2024 End: 10-28-2024 Folate [Mass/volume] in Serum or Plasma [facility] Comment on above: Expected: 07/29/2024, Expires: Start: 07-29-2024 End: 10-28-2024 Hemoglobin A1c in Blood [facility] Work Phone: Comment on above: Expected: 07/29/2024, Expires: Start: 07-29-2024 End: 10-28-2024 IMMUNOFIXATION SCREEN, SERUM [facility] Comment on above: Expected: 07/29/2024, Expires: Start: 07-29-2024 End: 10-28-2024 KAPPA/ERASMO,KATE,SER [facility] Comment on above: Expected: 07/29/2024, Expires: Start: 07-29-2024 End: 10-28-2024 Methylmalonate [Moles/volume] in Serum or Plasma [facility] Comment on above: Expected: 07/29/2024, Expires: Start: 07-29-2024 End: 10-28-2024 VITAMIN B1 (THIAMINE), WHOLE BLOOD [facility] Comment on above: Expected: 07/29/2024, Expires: Start: 06-02-2024 Urine microalbumin profile DTaP,Tdap,Td Vaccine (2 - Td or Tdap) [facility] Start: 04-13-2024 Advance Directive Discussion Advance Directive Discussion [facility] Start: 04-07-2024 End: 04-07-2024 Patient encounter procedure 04/07/2024 10:00 AM EST Office Visit Neurology [address] [address] Em Flynn, SCREEN EXAMINER.BABY STROLLER RENTAL CLERK [address] [place] [address] 3 month follow up Neurology Comment on above: 3 month follow up Start: 12-31-2023 End: 12-31-2023 Patient encounter procedure 12/31/2023 9:00 AM EDT Office Visit Neurology [address] [address] Em Flynn, SCREEN EXAMINER.BABY STROLLER RENTAL CLERK [address] [place] [address] 3 month follow up Neurology Comment on above: 3 month follow up Start: 12-13-2023 Covid-19 Vaccine ( season) Covid-19 Vaccine ( season) [facility] Start: 12-13-2023 Covid-19 Vaccine ( season) Covid-19 Vaccine ( season) [facility] Start: 12-13-2023 Influenza vaccination [facility] Start: 11-20-2023 End: 11-20-2023 Patient encounter procedure 11/20/2023 7:45 AM EDT Appointment Mammography [address] [address] INCONCLUSIVE MAMMOGRAM - ORDER SCANNED IN [facility] 09/24/23 Mammography Comment on above: INCONCLUSIVE MAMMOGRAM - ORDER SCANNED I N [facility] 09/24/23 Start: 10-02-2023 End: 10-02-2023 Patient encounter procedure Orthopedics Comment on above: Acute pain of left shoulder [M25.512] L shoulder Start: 09-29-2023 End: 09-29-2023 Patient encounter procedure 09/29/2023 9:00 AM EDT Office Visit Neurology [address] [id number] Em Flynn, SCREEN EXAMINER.BABY STROLLER RENTAL CLERK [address] [address] Return in about 3 months (around 10/06/2023). Neurology Comment on above: Return in about 3 months (around 10/06/19). Start: 09-23-2023 End: 09-23-2023 Patient encounter procedure 09/23/2023 9:20 AM EDT Appointment Mammography [address] [place] [address] Franki breast us, left breast diagnostic mammogram Mammography Comment on above: Franki breast us, left breast diagnostic m ammogram Start: 09-23-2023 Subsequent hospital visit by physician 09/23/2023 9:20 AM EDT Hospital Encounter Mammography [address] [place] [address] Inconclusive mammogram [R92.2] Mammography Comment on above: Inconclusive mammogram [R92.2] Start: 08-27-2023 End: 08-27-2023 Patient encounter procedure 08/27/2023 1:40 PM EDT Office Visit [facility] [address] [address] Stephan Sheehan PA-C [address] [place] [id number] 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] [facility] Comment on above: Protrusion of cervical intervertebral di sc [M50.20] Start: 08-13-2023 End: 08-13-2023 Patient encounter procedure Mammography Comment on above: MAMMOGRAM SCREENING BILATERAL DEXA BONE DENSITY Start: 05-01-2023 [facility] Start: 04-13-2023 Advance Directive Discussion Advance Directive Discussion [facility] Start: 04-13-2023 Behavioral Health Screening Behavioral Health Screening [facility] Start: 04-13-2023 Depression Assessment Depression Assessment [facility] Start: 02-09-2023 Blood chemistry [facility] Start: 02-08-2023 Blood chemistry [facility] Start: 02-07-2023 Blood chemistry [facility] Start: 02-06-2023 Patient discharge [facility] Start: 02-03-2023 Administration of blood product [facility] Start: 02-02-2023 Ambulation therapy management [facility] Start: 02-02-2023 Application of device [facility] Start: 02-02-2023 Exercises [facility] Start: 02-02-2023 Following clinical pathway protocol [facility] Start: 02-02-2023 Introduction of urinary catheter [facility] Start: 02-02-2023 Neurovascular assessment [facility] Start: 02-02-2023 Patient education [facility] Start: 02-02-2023 Provision of activity privileges [facility] Start: 02-02-2023 Recommendation to continue with treatment [facility] Start: 02-02-2023 Referral to occupational therapist [facility] Start: 02-02-2023 Referral to service [facility] Start: 02-02-2023 Vital signs measurements [facility] Start: 02-02-2023 Wound care [facility] Start: 02-02-2023 [facility] Start: 02-02-2023 End: 02-02-2023 Measuring intake and output [facility] Start: 02-01-2023 Application of intermittent pneumatic compression device [facility] Start: 02-01-2023 Following clinical pathway protocol [facility] Start: 02-01-2023 Application of ice collar, cap or bag [facility] Start: 02-01-2023 Assessment of risk of venous thromboembolism [facility] Start: 02-01-2023 Bedrest [facility] Start: 02-01-2023 Consultation [facility] Start: 02-01-2023 Fall prevention [facility] Start: 02-01-2023 Inhalation therapy procedure [facility] Start: 02-01-2023 Insertion of catheter into peripheral vein [facility] Start: 02-01-2023 Introduction of urinary catheter [facility] Start: 02-01-2023 Neurovascular assessment [facility] Start: 02-01-2023 Providing care according to standard [facility] Start: 02-01-2023 Referral to occupational therapist [facility] Start: 02-01-2023 Referral to service [facility] Start: 02-01-2023 Skin care [facility] Start: 02-01-2023 [facility] Start: 02-01-2023 End: 02-01-2023 Measuring intake and output [facility] Start: 02-01-2023 Admission procedure [facility] Start: 02-01-2023 Hospital admission, emergency, from emergency room, medical nature [facility] Start: 02-01-2023 Brain natriuretic peptide measurement [facility] Start: 12-12-2022 Covid-19 Vaccine ( season) Covid-19 Vaccine ( season) [facility] Start: 12-12-2022 Influenza vaccination [facility] Start: 04-13-2022 ADVANCE DIRECTIVE DISCUSSION ADVANCE DIRECTIVE DISCUSSION [facility] Start: 04-13-2022 DEPRESSION ASSESSMENT DEPRESSION ASSESSMENT [facility] Start: 01-07-2019 Shingrix Vaccine (2 of 2) Shingrix Vaccine (2 of 2) [facility] Start: 2016 RSV Vaccine (1 - 1-dose 75+ series) RSV Vaccine (1 - 1-dose 75+ series) [facility] Start: 2006 BONE DENSITY BONE DENSITY [facility] Start: 2006 Bone Density Screening Bone Density Screening [facility] Start: 2006 Pneumococcal Vaccine: 65+ (1 - PCV) Pneumococcal Vaccine: 65+ (1 - PCV) [facility] Start: 2006 Pneumococcal Vaccine: 65+ (1 of 1 - PCV) Pneumococcal Vaccine: 65+ (1 of 1 - PCV) [facility] Start: 2006 PNEUMOCOCCAL: 65+ (1 - PCV) PNEUMOCOCCAL: 65+ (1 - PCV) [facility] Start: 2006 Screening for osteoporosis Bone Density Screening [facility] Start: 2001 RSV Vaccine (1 - 1-dose 60+ series) RSV Vaccine (1 - 1-dose 60+ series) [facility] Start: 1991 SHINGRIX VACCINE (1 of 2) SHINGRIX VACCINE (1 of 2) [facility] Start: 1986 DIABETES SCREEN DIABETES SCREEN [facility] Start: 1986 Diabetes Screening Diabetes Screening [facility] Start: 1960 Urine microalbumin profile [facility] Start: 1959 Anxiety Screening Anxiety Screening [facility] Start: 1959 Depression Screening Depression Screening [facility] Start: 1959 Hepatitis B surface antibody level LDL CHOLESTEROL [facility] Start: 1941 COVID-19 VACCINE (#1) COVID-19 VACCINE (#1) [facility] Hematocrit [Volume Fraction] of Blood [facility] Hematocrit [Volume Fraction] of Blood [facility] Hemoglobin [Mass/vol ume] in Blood [facility] Hemoglobin [Mass/vol ume] in Blood [facility] Leukocytes [#/volume ] in Blood [facility] Leukocytes [#/volume ] in Blood [facility] Mean corpuscular hemoglobin concentration determination [facility] Mean corpuscular hemoglobin concentration determination [facility] Mean corpuscular hemoglobin determination [facility] Mean corpuscular hemoglobin determination [facility] End: 08-04-2024 MR Cervical spine WO contrast MRI CERVICAL SPINE WO IVCON Radiology Routine 1 Occurrences starting 07/06/2023 until 08/04/2024 [facility] Work Phone: Comment on above: 1 Occurrences starting 07/06/2023 until 08/04/2024 Neutrophil count [facility] Neutrophil count [facility] Neutrophil percent differential count [facility] Neutrophil percent differential count [facility] Patient Education [facility] Work Phone: Patient referral [facility] Work Phone: Platelets [#/volume] in Blood [facility] Platelets [#/volume] in Blood [facility] Red blood cell count [facility] Red blood cell count [facility] Red cell distributio n width determination [facility] Red cell distributio n width determination [facility] XR Shoulder - left 3 Views XR SHOULDER GENERAL 3V OR MORE AP/TRUE AP/OTHER LEFT Radiology Routine Chronic left shoulder pain 1 Occurrences starting 09/15/2023 [facility] Work Phone: Comment on above: 1 Occurrences starting 09/15/2023 [facility] Payers Date Payer Category Payer Self-pay 2024 Medicaid [id number] 2023 Medicaid [id number] 2023 Medicare (Managed Care) [facility] MEDICARE [id number] 2023 Medicare [id number] 2022 Medicare [id number]. [id number] Unknown [id number] Unknown [id number] 2.16.840.1.040138.3.579.2. 462 Unknown [id number] 2.16.840.1.933236.3.579.2. 462 Unknown [id number] 2.16.840.1.699819.3.579.2. 462 Unknown [id number] 2.16.840.1.669402.3.579.2. 462 Unknown [id number] 2.16.840.1.384633.3.579.2. 462 Unknown [id number] 2.16.840.1.868449.3.579.2. 462 Unknown [id number] 2.16.840.1.847090.3.579.2. 462 Unknown [id number] 2.16.840.1.832997.3.579.2. 462 Unknown [id number] 2.16.840.1.606602.3.579.2. 462 Unknown [id number] 2.16.840.1.527907.3.579.2. 462 Unknown [id number] 2.16.840.1.858609.3.579.2. 462 Unknown [id number] 2.16.840.1.350627.3.579.2. 462 Unknown [id number] 2.16.840.1.601264.3.579.2. 462 Unknown [id number] 2.16.840.1.616272.3.579.2. 462 Unknown [id number] 2.16.840.1.735394.3.579.2. 462 Social History Date Type Detail Facility Start: 2022 End: 05-01-2023 Tobacco smoking status [facility] Unknown if ever smoked [facility] Start: 1940 Sex Assigned At Female [facility] Start: 10-09-2022 End: 01-20-2025 Tobacco smoking status MIIS Ex-smoker [facility] History of tobacco use Current smoker [facility] History of tobacco use Cigarette Smoker [facility] Start: 10-09-2022 End: 08-27-2023 Tobacco use and exposure Smokeless tobacco non-user [facility] Start: 10-09-2022 End: 07-29-2024 Alcohol intake Lifetime non-drinker (finding) [facility] Start: 1940 Sex Assigned At Not on file [facility] Start: 01-20-2023 End: 07-29-2024 History of Social function [facility] Start: 01-20-2023 End: 07-29-2024 Tobacco use panel [facility] National Score (1-100), lower number is lower risk 51 [facility] Start: 06-16-2024 [facility]: Highlighted row [facility] NEGATED: Highlighted rowStart: NINF History of tobacco use Passive smoker [facility] Medical Equipment Procedure Code Equipment Code Equipment Origin al Text Equipment Identifier Dates Primary uncemented hemiarthroplasty of hip ([id number]) Uncoated hip femur prosthesis, one-piece ()[id number] FDA Start: 01-20-2025 Primary uncemented hemiarthroplasty of hip Uncoated hip femur prosthesis, one-piece ()[id number] FDA Start: 01-20-2025 Primary uncemented hemiarthroplasty of hip ([id number]) Coated hip femur prosthesis, modular ()[id number] FDA Start: 01-20-2025 ORIF, hip, using Gamma nail ([id number]) Orthopaedic bone screw, non-bioabsorbable, sterile ()[id number])[id number] FDA Start: 02-02-2023 ORIF, hip, using Gamma nail ([id number]) Femur nail, sterile ()[id number])[id number] FDA Start: 02-02-2023 ORIF, hip, using Gamma nail ([id number]) Orthopaedic bone screw, non-bioabsorbable, sterile ()[id number])[id number] [id number] FDA Start: 02-02-2023 Goals Date Patient Goal Desired Activity /State Functional Status Date Assessment Result Facility 01-25-2025 Functional status [facility] Work Phone: 02-06-2023 Functional status [facility] Work Phone: Mental Status Date Assessment Result Facility 01-25-2025 Cognitive function Voice/Name [facility] Work Phone: 02-06-2023 Cognitive function Voice/Name [facility] Work Phone: Clinical Notes 10-09-2022 to 01-25-2025 Note Date & Type Note Facility 01-25-2025 Note [facility] Medical Records Department [address] [place] [address] Discharge Summary 01/25/25 1449 MR#: [id number] Acct: [id number] Name: MONISHA COHN Rep #: [id number] : 1940 84 From: Davian Kelly MD PCP: Tressa Rosales Status:DIS [facility] Prov[facility] Date of Admission: 01/20/25 Primary Care [...] pulmonary hypertension, CAD; with RCA stent at [facility] in [place] (2009) and subsequent inferior wall ST elevation NC s/p RCA stent with cardiogenic shock and [...] recently diagnosed COVID-19 who was transferred from [facility] after she was diagnosed with an impacted [...] LOC with her fall. Dr. North of [facility] spoke to Dr. Tijerina of the orthopedic service here (more content not included)... [facility] 01-25-2025 Consult note [facility] 01-25-2025 Consult note [facility] 01-25-2025 Consult note Note Date/Time January 25, 2025 1:00pm [facility] Medical Records Department [address] [place] [address] Counseling Note - Pharmacy 01/25/25 0938 MR#: [id number] Acct: [id number] Name: MONISHA COHN Rep #:[id number] 2 : 1940 84 From: Ephraim severino PCP: Tressa Rosales Status:ADM IN Y Location: MS3 FO299-6 Pharmacy MD Med Reconciliation Pharmacy Service has performed discharge [...] Signature (if applicable): Date CC: ~ Signed [facility] Work Phone: 1(770) 153-909410-15-2025 Discharge summary Author Davian Kelly [facility] Note Date/Time January 25, 2025 9 :25am [facility] Medical Records Department [address] [place] [address] Transfer to [facility] MR#: [id number] Acct: [id number] Name: MONISHA COHN Rep #:[id number] 7 : 1940 84 From: Davian interiano MD PCP: Tressa Rosales Status:ADM IN Certification of patient admission REQUIRED AT TIME OF ADMISSION. I CERTIFY THAT POST-HOSPITAL F SERVICES ARE REQUIRED TO BE GIVEN ON AN IN-PATIENT BASIS BECAUSE OF THE ABOVE NAMED PATIENT'S NEED FOR PENITENTIARY CARE ON A CONTINUING BASIS FOR THE CONDITION(S) FOR WHICH HE/SHE WAS RECEIVING IN-PATIENT HOSPITAL SERVICES PRIOR TO HIS/HER TRANSFER TO THE [facility]. 01/25/25924<Electronically signed by Davian Kelly MD> [...] post repair 01/20/2025 -After mechanical fall at [facility] -Ortho consulted -Patient n.p.o. -Pain control/supportive [...] in before D/C Order can be placed): Intermediate Facility (1) Closed hip fracture Qualifiers: Encounter [...] applicable): CC: Dr. Stephan Martel DO; Dr. aDrline Lundy MD; Dr. Braulio Tijerina MD; Tressa Rosales ~ [facility] Work Phone: 1(504) 653-269410-15-2025 Discharge summary [facility] Medical Records Department [address] [place] [address] Transfer to [facility] MR#: [id number] Acct: [id number] Name: MONISHA COHN Rep #:[id number] 7 : 1940 84 From: Davian interiano MD PCP: Tressa Rosales Status:ADM IN Certification of patient admission REQUIRED AT TIME OF ADMISSION. I CERTIFY THAT POST-HOSPITAL ECF SERVICES ARE REQUIRED TO BE GIVEN ON AN IN-PATIENT BASIS BECAUSE OF THE ABOVE NAMED PATIENT'S NEED FOR PENITENTIARY CARE ON A CONTINUING BASIS FOR THE [...] post repair 01/20/2025 -After mechanical fall at [facility] -Ortho consulted -Patient n.p.o. -Pain control/supportive [...] in before D/C Order can be placed): Intermediate Facility (1) Closed hip fracture Qualifiers: Encounter [...] Dr. Braulio Tijerina MD; Tressa Rosales ~ [facility]10-14-2025 Progress note Author Davian Kelly [facility] Note Date/Time January 24, 2025 1 0:33am [facility] Medical Records Department [address] [place] [address] Progress Note - Hospitalist 01/24/25 1031 MR#: [id number] Acct: [id number] Name: MONISHA COHN Rep #:[id number] 0 : 1940 84 From: Daivan interiano MD PCP: Tressa Rosales Status:ADM IN Location: MT3 PA592-8 Subjective Subjective Doing well, no issues overnight. [...] post repair 01/20/2025 -After mechanical fall at [facility] -Ortho consulted -Patient n.p.o. -Pain control/supportive [...] DVT: Xarelto Charges/Coding Visit Charges Inpatient E&M: 81784 Subs Hosp L2 01/24/25 1033 <Electronically signed by Davian Kelly MD> Cosigner Signature (if applicable): CC: ~ Signed [facility] Work Phone: 1(992) 438-243710-14-2025 Progress note [facility] Medical Records Department [address] [place] [address] Progress Note - Hospitalist 01/24/25 1031 MR#: [id number] Acct: [id number] Name: MONISHA COHN Rep #:[id number] 0 : 1940 84 From: Davian interiano MD PCP: Tressa Rosales Status:ADM IN Location: [place] [address]-1 Subjective Subjective Doing well, no issues overnight. [...] post repair 01/20/2025 -After mechanical fall at [facility] -Ortho consulted -Patient n.p.o. -Pain control/supportive [...] DVT: Xarelto Charges/Coding Visit Charges Inpatient E&M: 52200 Subs Hosp L2 01/24/25 1033 Cosigner Signature (if applicable): CC: ~ Signed [facility]10-13-2025 Progress note Author Davian Kelly [facility] Note Date/Time January 23, 2025 1 1:01am [facility] Medical Records Department [address] [place] [address] Progress Note - Hospitalist 01/23/25 1053 MR#: [id number] Acct: [id number] Name: MONISHA COHN Rep #:[id number] 4 : 1940 84 From: Davian interiano MD PCP: Tressa Rosales Status:ADM IN Location: MT3 HD095-0 Subjective Subjective Pain is controlled, no issues [...] DVT: Xarelto Charges/Coding Visit Charges Inpatient E&M: 90905 Subs Hosp L2 01/23/25 1101 <Electronically signed by Davian Kelly MD> Cosigner Signature (if applicable): CC: ~ Signed [facility] Work Phone: 1(359) 100-219510-13-2025 Progress note [facility] Medical Records Department [address] [place] [address] Progress Note - Hospitalist 01/23/25 1053 MR#: [id number] Acct: [id number] Name: MONISHA COHN Rep #:[id number] 4 : 1940 84 From: Davian interiano MD PCP: Tressa Rosales Status:ADM IN Location: [place] [address] Subjective Subjective Pain is controlled, no issues [...] post repair 01/20/2025 -After mechanical fall at [facility] -Ortho consulted -Patient n.p.o. -Pain control/supportive [...] DVT: Xarelto Charges/Coding Visit Charges Inpatient E&M: 03151 Subs Hosp L2 01/23/25 1101 Cosigner Signature (if applicable): CC: ~ Signed [facility]10-12-2025 Progress note Author Davian Kelly [facility] Note Date/Time January 22, 2025 9 :19am [facility] Medical Records Department [address] [place] [address] Progress Note - Hospitalist 01/22/25917 MR#: [id number] Acct: [id number] Name: MONISHA COHN Rep #:[id number] 0 : 1940 84 From: Davian interiano MD PCP: Tressa Rosales Status:ADM IN Location: [place] [address]-1 Subjective Subjective Doing well, pain is controlled. [...] post repair 01/20/2025 -After mechanical fall at [facility] -Ortho consulted -Patient n.p.o. -Pain control/supportive [...] DVT: Xarelto Charges/Coding Visit Charges Inpatient E&M: 85631 Subs Hosp L2 01/22/25918 <Electronically signed by Davian Kelly MD> Cosigner Signature (if applicable): CC: ~ Signed [facility] Work Phone: 1(192) 379-865410-12-2025 Progress note [facility] Medical Records Department [address] [place] [address] Progress Note - Hospitalist 01/22/25917 MR#: [id number] Acct: [id number] Name: MONISHA COHN Rep #:[id number] 0 : 1940 84 From: Davian interiano MD PCP: Tressa Rosales Status:ADM IN Location: [place] [address] Subjective Subjective Doing well, pain is controlled. [...] DVT: Xarelto Charges/Coding Visit Charges Inpatient E&M: 92858 Subs Hosp L2 01/22/25 0919 Cosigner Signature (if applicable): CC: ~ Signed [facility]10-11-2025 Progress note Author Braulio Tijerina [facility] Note Date/Time January 21, 2025 1 :41pm [facility] Medical Records Department [address] [place] [address] Progress Note - Orthopedic 01/21/25 1335 MR#: [id number] Acct: [id number] Name: MONISHA COHN Rep #:[id number] 7 : 1940 84 From: Braulio Fontana PCP: Tressa Rosales Status:ADM IN Location: MS3 BO433-8 Subjective Subjective Patient states she is doing [...] hip surgical and chronic changes. [facility]-Ray 01/20/25 16:20 IMPRESSION: Uncomplicated appearing [...] Cosigner Signature (if applicable): CC: ~ Signed [facility] Work Phone: 1(327) 133-905710-11-2025 Progress note [facility] Medical Records Department [address] [place] [address] Progress Note - Orthopedic 01/21/25 1335 MR#: [id number] Acct: [id number] Name: MONISHA COHN Rep #:[id number] 7 : 1940 84 From: Braulio Fontana PCP: Tressa Rosales Status:ADM IN Location: MS3 JA562-5 Subjective Subjective Patient states she is doing [...] hip surgical and chronic changes. [facility] X-Ray 01/20/25 16:20 IMPRESSION: Uncomplicated appearing [...] Cosigner Signature (if applicable): CC: ~ Signed [facility]10-11-2025 Progress note Author Davian Kelly [facility] Note Date/Time January 21, 2025 9 :43am [facility] Medical Records Department [address] [place] [address] Progress Note - Hospitalist 01/21/25 0939 MR#: [id number] Acct: [id number] Name: SUKIMONISHA ARIEL Rep #:[id number] 7 : 1940 84 From: Davian interiano MD PCP: Tressa Rosales Status:ADM IN Location: MS3 BE531-6 Subjective Subjective Doing well, no issues overnight. [...] hip surgical and chronic changes. [facility] Hip X-Ray 01/20/25 16:20 IMPRESSION: Uncomplicated appearing right hip hemiarthroplasty. Left hip chronic and surgical changes. [facility] Physical Exam Narrative General: Alert, Oriented x3, [...] post repair 01/20/2025 -After mechanical fall at [facility] -Ortho consulted -Patient n.p.o. -Pain control/supportive [...] DVT: Xarelto Charges/Coding Visit Charges Inpatient E&M: 02452 Subs Hosp L2 01/21/25942 <Electronically signed by Davian Kelly MD> Cosigner Signature (if applicable): CC: ~ Signed [facility] Work Phone: 1(266) 460-821210-11-2025 Progress note [facility] Medical Records Department [address] [place] [address] Progress Note - Hospitalist 01/21/25938 MR#: [id number] Acct: [id number] Name: MONISHA COHN Rep #:[id number] 7 : 1940 84 From: Davian interiano MD PCP: Tressa Rosales Status:ADM IN Location: [facility] XP346-5 Subjective Subjective Doing well, no issues overnight. [...] hip surgical and chronic changes. Reading Location: [facility] Hip X-Ray 01/20/25 16:20 IMPRESSION: Uncomplicated appearing right hip hemiarthroplasty. Left hip chronic and surgical changes. Reading Location: [facility] Physical Exam Narrative General: Alert, Oriented x3, [...] DVT: Xarelto Charges/Coding Visit Charges Inpatient E&M: 42969 Subs Hosp L2 01/21/25 0943 Cosigner Signature (if applicable): CC: ~ Signed [facility]10-10-2025 Consult note Author Brennen Rojas [facility] Note Date/Time January 20, 2025 5 :17pm [facility] Medical Records Department [address] [place] [address] Anesthesia Postop Eval I 01/20/25 1715 MR#: [id number] Acct: [id number] Name: MONISHA COHN Rep #:[id number] 0 : 1940 84 From: Brennen Rojas CRNA PCP: Tressa Rosales Status:ADM IN Y Race: C Location: [place] [address] Anesthesia: Postop Eval I Current Vital Signs [...] Yes 01/20/251716 <Electronically signed by Brennen paz FITTER UP> Date _ Brennen Rojas FITTER UP Cosigner Signature: Date CC: ~ Signed [facility] Work Phone: 1(176) 399-699910-10-2025 Consult note Author Jareth Shepard [facility] Note Date/Time January 25, 2025 1 :00pm [facility] Medical Records Department [address] [place] [address] Anesthesia Postop Eval II 01/20/251705 MR#: [id number] Acct: [id number] Name: MONISHA COHN Rep #:[id number] 7 : 1940 84 From: Jareth Shepard MD PCP: Tressa Rosales Status:ADM IN Y Race: C Location: [facility] MS309 -1 Anesthesia Postop Eval I Sum [...] Jareth Elliott Signature: Date CC: ~ Signed [facility] Work Phone: 1(294) 539-260610-10-2025 Procedure note [facility] Medical Records Department [address] [facility] [place] [address] Operative Report 01/20/25 1545 MR#: [id number] Acct: [id number] Name: MONISHA COHN Rep #:[id number] : 1940 84 From: Braulio Fontana PCP: Tressa Rosales Status:ADM IN [facility] Operative Report (Standard) Operative Information Date of Procedure: 01/20/25 Pre-Operative Diagnosis: Right hip subcapital femoral neck fracture Post-Operative Diagnosis: Right hip subcapital femoral neck fracture Surgery/Procedure Performed: Right hip endoprosthesis director independent: Yes Truck And Transport Mechanic: Edyta Bhatti Tasks completed by first press operator: Opening, Closing, Implanting device and Retracting Additional nursing assistant?: No Type of Anesthesia: General RN [...] awakened by anesthesia and transferred to the [facility]. Patient was then transferredto the PACU [...] applicable): CC: Dr. Stephan Martel, DO; Dr. Braulio Tijerina MD; Tressa Rosales~ Signed [facility]10-10-2025 Consult note [facility] Medical Records Department [address] [place] [address] Anesthesia Postop Eval I 01/20/25 1715 MR#: [id number] Acct: [id number] Name: MONISHA COHN Rep #:[id number] 0 : 1940 84 From: Brennen Rojas CRNA PCP: Tressa Rosales Status:ADM IN Y Race: C Location: [facility] MS309 -1 Anesthesia: Postop Eval I Current [...] Eval 1 completed: Yes 01/20/25 1717 an FITTER UP> Date _ Brennen Rojas FITTER UP Cosigner Signature: Date CC: ~ Signed [facility]10-10-2025 Radiology Diagnostic study note [facility] Imaging Services [address] [place] [place] [address]101 Hip Min 2 Views (Portable) MR#: [id number] Acct: [id number] Name: MONISHA COHN Rep #: [id number] : 1940 F 84 From: Christine Gillette MD PCP: Tressa Rosales Status: ADM IN Study:Hip Min 2 Views (Portable) Date of Exam : 01/20/25 Exam# [id number] Ordering Dr: Rachele Tijerina MD PROCEDURE: HIP [...] Dr. Braulio Tijerina MD; Tressa Rosales ~ Traffic Control Technician: Signed [facility]10-10-2025 Consult note Author Braulio Tijerina [facility] Note Date/Time January 20, 2025 2 :24pm [facility] Medical Records Department [address] [place] [address] Consultation - Orthopedics 01/20/25 1415 MR#: [id number] Acct: [id number] Name: MONISHA COHN Rep #:[id number] : 1940 84 From: Braulio Fontana PCP: Tressa Rosales Status:ADM IN Location: [facility] NC612-4 HPI Consult Data Date of Consult: 01/20/25 [...] Patient notes that she lives in a alf facility and ambulates with a walker or uses a wheelchair. She does notwalk independently. She was reported to have fallen yesterday and sustained an injury to her right hand and hip. She was seen at an outside hospital and requested transfer to [facility] as they did not have orthopedics. She [...] current treatment or active malignancies. [facility] Medical History Nocturia Urge incontinence Overactive bladder Former tobacco use Depression Hypertension Fall [facility] (closed head injury) Presence of stent in coronary artery (~12/22/21) Atherosclerotic heart disease of [place] coronary artery without angina pectoris ST elevation [...] mg chewable tablet 125 mg PO QD-BID MT N abdominal 12/28/24 Unknown History (Myl[employer]) [...] 81.1 H, Lymph % (Auto) 11.1 L, [place] % (Auto) 7.2, Eos % (Auto) 0.1, [...] Sl. Cloudy, Urine pH 6.5, Ur Specific [place] 1.010, Urine Protein 15 H, Urine Glucose [...] Signature (if applicable): CC: Tressa Rosales~ Signed [facility] Work Phone: 1(642) 441-801810-10-2025 Radiology Diagnostic study note [facility] Imaging Services [address] [place], [place] [address] Hip Min 2 Views (Portable) MR#: [id number] Acct: [id number] Name: MONISHA COHN Rep #: [id number] 4 : 1940 F 84 From: Christine Gillette MD PCP: Tressa Rosales Status: ADM IN Study:Hip Min 2 Views (Portable) Date of Exam : 01/20/25 Exam# [id number] Ordering Dr: Rachele Tijerina MD PROCEDURE: HIP [...] hip surgical and chronic changes. [facility] CC: Dr. Braulio Tijerina MD; Tressa Rosales ~ Traffic Control Technician: Signed [facility] [place]10-10-2025 Consult note Author Jareth 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 Hx Hospitalization Any Problems With Anesthesia No [...] take am of surgery PONV PONV - fire extinguisher inspector: PONV - fire extinguisher inspector Female HX of Motion Sickness HX of N/V After Surgery Non-Smoker Duration of Surgery greater than 60 minutes Number of Risk Factors PONV Score Height & Weight Height & Weight: Anesthesia: Height & Weight Height 5 ft 1.81 in 01/20/25 11:58 Weight: 75 kg 01/20/25 11:58 Body Mass Index (BMI) 30.4 01/20/25 11:58 Respiratory Assessment Respiratory Assessment - fire extinguisher inspector: Respiratory Tract Infection Hx - fire extinguisher inspector Hx Respiratory Tract Infection Yes: covid 01/20/25 [...] STOP Sleep Apnea STOP Sleep Apnea - fire extinguisher inspector: STOP Sleep Apnea - fire extinguisher inspector Hx Hypertension Yes 01/20/25 01:18 Hx Sleep [...] 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 - fire extinguisher inspector: 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 - fire extinguisher inspector Tobacco Use Smoking Status Former smoker 01/20/25 01:18 Hx Tobacco Use No 01/20/25 01:18 Years Smoking Packs Smoked per Day Smoking Cessation Date was No - quit smoking greater 01/20/25 01:18 within the last 15 years than 15 years ago Hx Smoking Cessation Date 04/13/79 01/20/25 01:18 Hx Smoking Cessation Counseling Hematologic Medial History Hematologic Hx - fire extinguisher inspector: Hematologic Medical Hx - records management clerk Hx of Blood Transfusion Yes 01/20/25 01:18 [...] confused, unrespo /Reproduction History /Reproductive History - fire extinguisher inspector: /Reproductive Hx- fire extinguisher inspector Hx Now No 01/20/25 01:31 Gestational Age [...] mls @ 15 mls/hr 01/20/25 01:13 IV .[id number] PRN Saline Flush Sodium Chloride 250 mls @ 15 mls/hr 01/20/25 01:13 IV .[id number] PRN Additional IVPB Infusion Lactated Ringer's 1,000 [...] coronary artery (~12/22/21) Atherosclerotic heart disease of [place] coronary artery without angina pectoris ST elevation [...] mg chewable tablet 125 mg PO QD-BID MT N abdominal 12/28/24 Unknown History (Mylanta Gas) [...] MD Cosigner Signature: Date CC: ~ Signed [facility] [place] Work Phone: 1(751) 143-940810-10-2025 Consult note [facility] Medical Records Department [address] [place] [address] Consultation - Orthopedics 01/20/25 1415 MR#: [id number] Acct: [id number] Name: MONISHA COHN Rep #:[id number] : 1940 84 From: Braulio Fontana PCP: Tressa Rosales Status:ADM IN Location: [facility] [id number] HPI Consult Data Date of Consult: 01/20/25 [...] Patient notes that she lives in a alf facility and ambulates with a walker or uses a wheelchair. She does notwalk independently. She was reported to have fallen yesterday and sustained an injury to her right hand and hip. She was seen at an outside hospital and requested transfer to [facility] as they did not have orthopedics. She [...] any current treatment or activemalignancies. [facility] Medical History Nocturia Urge incontinence Overactive bladder Former tobacco use Depression Hypertension Fall CHI (closed head injury) Presence of stent in coronary artery (~12/22/21) Atherosclerotic heart disease of [place] coronary artery without angina pectoris ST elevation [...] mg chewable tablet 125 mg PO QD-BID MT N abdominal 12/28/24 Unknown History (Mylanta Gas) [...] 81.1 H, Lymph % (Auto) 11.1 L, [place] % (Auto) 7.2, Eos % (Auto) 0.1, [...] Sl. Cloudy, Urine pH 6.5, Ur Specific [place] 1.010, Urine Protein 15 H, Urine Glucose [...] Signature (if applicable): CC: Tressa Rosales~ Signed [facility]10-10-2025 Progress note Author Darline Lundy [facility] Note Date/Time January 20, 2025 1 2:07pm [facility] Medical Records Department [address] [place] [address] Progress Note - Hospitalist 01/20/25 0842 MR#: [id number] Acct: [id number] Name: MONISHA COHN Rep #:[id number] : 1940 84 From: Darline Lundy MD PCP: Tressa Rosales Status:ADM IN Location: MS3 [id number] Hospitalist Note 84y/o F with a history of coronary artery disease with RCA stent, Parkinson's disease, fibromyalgia and overactive bladder, recent COVID diagnosis, who presented [facility] ED 01/20/2025 as a transfer from [facility] ER after she was found to have an impacted right femoral neck fracture. Reportedlyshe was at [facility] when she sustained a mechanical fall on her right side and subsequently could not please ambulate to assess for home O2 needs. Was noted to have a scalp hematoma and metacarpal fracture of right hand but denied any loss of consciousness with the fall. [facility] ED physician spoke to Dr. Tijerina withorthopedisofi [...] Cosigner Signature (if applicable): CC: ~ Signed [facility] Work Phone: 1(728) 345-244910-10-2025 Consult note [facility] Medical Records Department [address] [place] [address] Pre-Anesthesia Evaluation 01/20/25 1342 MR#: [id number] Acct: [id number] Name: MONISHA OCHN Rep #:[id number] : 1940 84 From: Jareth Shepard MD PCP: Tressa Rosales Status:ADM IN Y Race: C Location: MT3 [facility] -1 ASA Classification* ASA Classification ASA Classification: [...] hip hemiarthroplasty Anesthesia History 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 Hx Hospitalization Any Problems With Anesthesia No [...] take am of surgery PONV PONV - fire extinguisher inspector: PONV - fire extinguisher inspector Female HX of Motion Sickness HX of N/V After Surgery Non-Smoker Duration of Surgery greater than 60 minutes Number of Risk Factors PONV Score Height & Weight Height & Weight: Anesthesia: Height & Weight Height 5 ft 1.81 in 01/20/25 11:58 Weight: 75 kg 01/20/25 11:58 Body Mass Index (BMI) 30.4 01/20/25 11:58 Respiratory Assessment Respiratory Assessment - fire extinguisher inspector: Respiratory Tract Infection Hx - fire extinguisher inspector Hx Respiratory Tract Infection Yes: covid 01/20/25 [...] STOP Sleep Apnea STOP Sleep Apnea - fire extinguisher inspector: STOP Sleep Apnea - fire extinguisher inspector Hx Hypertension Yes 01/20/25 01:18 Hx Sleep [...] 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 - fire extinguisher 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: 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 - fire extinguisher inspector Tobacco Use Smoking Status Former smoker 01/20/25 01:18 Hx Tobacco Use No 01/20/25 01:18 Years Smoking Packs Smoked per Day Smoking Cessation Date was No - quit smoking greater 01/20/25 01:18 within the last 15 years than 15 years ago Hx Smoking Cessation Date 04/13/79 01/20/25 01:18 Hx Smoking Cessation Counseling Hematologic Medial History Hematologic Hx - fire extinguisher inspector: Hematologic Medical Hx - records management clerk Hx of Blood Transfusion Yes 01/20/25 01:18 [...] confused, unrespo /Reproduction History /Reproductive History - fire extinguisher inspector: /Reproductive Hx- fire extinguisher inspector Hx Now No 01/20/25 01:31 Gestational Age [...] mls @ 15 mls/hr 01/20/25 01:13 IV .[id number] PRN Saline Flush Sodium Chloride 250 mls @ 15 mls/hr 01/20/25 01:13 IV .[id number] PRN Additional IVPB Infusion Lactated Ringer's 1,000 [...] Glycol 3350 17 Gm Packet PO DAILY [facility] Psyllium Hydrophilic Mucilloid 1 packet 01/20/25 10:00 Psyllium 1 Packet PO DAILY [facility] Sodium Chloride 10 - 40 ml 01/20/25 01:13 01/20/25 09:21 0.9% Saline Lock 10 Ml Syringe IV 10 ml UD PRN Administration SALINE FLUSH PFSH Medical History Nocturia Urge incontinence Overactive bladder Former tobacco use Depression Hypertension Fall CHI (closed head injury) Presence of stent in coronary artery (~12/22/21) Atherosclerotic heart disease of [place] coronary artery without angina pectoris ST elevation [...] mg chewable tablet 125 mg PO QD-BID MT N abdominal 12/28/24 Unknown History (Mylanta Gas) [...] MD Cosigner Signature: Date CC: ~ Signed [facility]10-10-2025 Progress note [facility] Medical Records Department [address] [place] [address] Progress Note - Hospitalist 01/20/25 0842 MR#: [id number] Acct: [id number] Name: MONISHA COHN Rep #:[id number] : 1940 84 From: Darline Lundy MD PCP: Tressa Rosales Status:ADM IN Location: MS3 [id number] Hospitalist Note 84y/o F with a history of coronary artery disease with RCA stent, Parkinson's disease, fibromyalgiaand overactive bladder, recent COVID diagnosis, who presented [facility] ED 01/20/2025 as a transfer from [facility] ER after she was found to have an impacted right femoral neck fracture. Carla masterson was at [facility] when she sustained a mechanical fall on her right side and subsequently could not please ambulate to assess for home O2 needs. Was noted to have a scalp hematoma and metacarpal fracture of right hand but denied any loss of consciousness with the fall. [facility] ED physician spoketo Dr. Tijerina withorthopedics who recommended admission to the hospital service with formal consultation for ORIF. Patient was transferred to a medical floor. # Impacted right intertrochanteric fracture of the femoral neck and metacarpal fracture right hand -After mechanical fall at [facility] -Ortho consulted -Patient n.p.o. -Pain control/supportive [...] Cosigner Signature (if applicable): CC: ~ Signed [facility]10-10-2025 History and physical note Author Stephan Beard [facility] Note Date/Time January 20, 2025 6 :54am [facility] Medical Records Department [address] [place] [address] H&P Exam - Hospitalist 01/20/25 0112 MR#: [id number] Acct: [id number] Name: MONISHA COHN Rep #:[id number] : 1940 84 From: Stephan Hernandez DO PCP: Tressa Rosales Status:ADM IN Location: MT3 [id number] [facility] - General General Date of Admission: 01/20/25 Date of Service: 01/20/25 Chief Complaint: Fall with Right Hip Fracture. HPI Narrative MONISHA COHN, is a 84 F with a past medical history of essential hypertension; currently not on treatment, hyperlipidemia; on atorvastatin, former tobacco abuse; with subsequent COPD and pulmonary hypertension, CAD; with RCA stent at [facility] in [place] (2009) and subsequent inferior wall ST elevation NC s/p RCA stent with cardiogenic shock and [...] recently diagnosed COVID-19 who was transferred from [facility] ED she was diagnosed with an impacted Right [...] LOC with her fall. Dr. [facility] of [facility] spoke to Dr. Tijerina of the orthopedic service here who recommended admission to the hospitalist service with formal consultation pending in the a.m. for ORIF. She was then admitted to the generalmedical floor for ongoing care for stay that is expected to extend beyond 2 midnights. [facility] Medical History Nocturia Urge incontinence Overactive bladder Former tobacco use Depression Hypertension Fall CHI (closed head injury) Presence of stent in coronary artery (~12/22/21) Atherosclerotic heart disease of [place] coronary artery without angina pectoris ST elevation [...] mg chewable tablet 125 mg PO QD-BID MT N abdominal 12/28/24 Unknown History (Mylanta Gas) [...] in AM. Give acetaminophen as needed for oxxr-gx-uiegmmfa (level 1-5/10) pain or fever. Give morphine [...] before. 4. CAD; with RCA stent at [facility] in [place] (2009) and subsequent inferior wall ST elevation [place] s/p RCA stent with cardiogenic shock and [...] 75 minutes. Charges/Coding Visit Charges Inpatient E&M: 46480 Init Hosp L3 01/20/25 0654 <Electronically signed by Stephan Martel DO> Cosigner Signature (if applicable): CC: Dr. Stephan Martel DO; Tressa Rosales~ Signed [facility] Work Phone: 1(718) 697-287310-10-2025 History and physical note [facility] Medical Records Department [address] [place] [address] H&P Exam - Hospitalist 01/20/25 0112 MR#: [id number] Acct: [id number] Name: MONISHA COHN Rep #:[id number] : 1940 84 From: Stephan Hernandez DO PCP: Tressa Rosales Status:ADM IN Location: MT3 [id number] [facility] - General General Date of Admission: 01/20/25 Date of Service: 01/20/25 Chief Complaint: Fall with Right Hip Fracture. HPI Narrative MONISHA COHN, is a 84 F with a past medical history of essential hypertension; currently not on treatment, hyperlipidemia; on atorvastatin, former tobacco abuse; with subsequent COPD and pulmonary hypertension, CAD; with RCA stent at [facility] in [place] (2009) and subsequent inferior wall ST elevation [place] s/p RCA stent with cardiogenic shock and [...] recently diagnosed COVID-19 who was transferred from [facility] ED she was diagnosed with an impacted Right [...] LOC with her fall. Dr. [facility] of [facility] spoke to Dr. Tijerina of the orthopedic service here who recommended admission to the hospitalist service with formal consultation pending in the a.m. for ORIF. She was then admitted to the generalmedical floor for ongoing care for stay that is expected to extend beyond 2 midnights. [facility] Medical History Nocturia Urge incontinence Overactive bladder Former tobacco use Depression Hypertension Fall CHI (closed head injury) Presence of stent in coronary artery (~12/22/21) Atherosclerotic heart disease of [place] coronary artery without angina pectoris ST elevation [...] mg chewable tablet 125 mg PO QD-BID MT N abdominal 12/28/24 Unknown History (Mylanta Gas) [...] in AM. Give acetaminophen as needed for wdix-rc-fllzytwq (level 1-5/10) pain or fever. Give morphine [...] before. 4. CAD; with RCA stent at [facility] in [place] (2009) and subsequent inferior wall ST elevation [place] s/p RCA stent with cardiogenic shock and [...] 75 minutes. Charges/Coding Visit Charges Inpatient E&M: 20697 Init Hosp L3 01/20/25 0654 Cosigner Signature (if applicable): CC: Dr. 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 Work Phone: 1(158) 758-138906-17-2025 Progress [facility] [address] [place] [address] OFFICE VISIT Date of Service: 09/27/24 MR#: [id number] Acct: [id number] Name: MONISHA COHN Rep #: [id number] : 1940 Provider: Dr. Domingo Vernon MD Age/Sex: 84/F Location: [facility] Status: Signed HPI HPI History of [...] NIBP Intake Visit Reasons: 6 M FU Tutoring Clinician Required: No Accompanied by: Is patient in [...] Yes (no major injuries; 2) [facility] Medical History Atherosclerotic heart disease of [place] coronary artery without angina pectoris Bladder spasms [...] Supplemental Info Supplemental Information ECHOCARDIOGRAM 12/23/21 @ [facility] [place] Left ventricular ejection fraction is normal, estimated [...] tricuspid valve regurgitation Cath Intervention 12/20/09 @ [facility] Percutaneous coronary angioplasty and stenting of the right coronary artery withtwo drug eluting stents 2.5x30mm and 2.5x12mm Cath Intervention 12/22/21 @ [facility] Percutaneous coronary intervention in the right coronary artery with a 2.75x22 mm MIKKI drug elutingstent Assessment and Plan Assessment and Plan (1) CAD (coronary artery disease): Status: Chronic Plan: History of inferior NC. History of drug-eluting stents placement to the [...] Date (if applicable) CC: Tressa Rosales ~ [facility]06-17-2025 Progress note Author Danielle Vernon [facility] Note Date/Time September 27, 2024 11:5 1am [facility] [place] [facility] [place] [id number] [facility] [place] [address] OFFICE VISIT Date of Service: 09/27/24 MR#: [id number] Acct: [id number] Name: MONISHA COHN Rep #: [id number] : 1940 Provider: Dr. Domingo Vernon MD Age/Sex: 84/F Location: [facility] Status: Signed HPI HPI History of [...] NIBP Intake Visit Reasons: 6 M FU Tutoring Clinician Required: No Accompanied by: Is patient in [...] Yes (no major injuries; 2) [facility] Medical History Atherosclerotic heart disease of [place] coronary artery without angina pectoris Bladder spasms [...] Supplemental Info Supplemental Information ECHOCARDIOGRAM 12/23/21 @ [facility] [place] Left ventricular ejection fraction is normal, estimated [...] tricuspid valve regurgitation Cath Intervention 12/20/09 @ [facility] Percutaneous coronary angioplasty and stenting of the right coronary artery withtwo drug eluting stents 2.5x30mm and 2.5x12mm Cath Intervention 12/22/21 @ [facility] Percutaneous coronary intervention in the right coronary artery with a 2.75x22 mm MIKKI drug eluting stent Assessment and Plan Assessment and Plan (1) CAD (coronary artery disease): Status: Chronic Plan: History of inferior NC. History of drug-eluting stents placement to the [...] Date (if applicable) CC: Tressa Rosales ~ 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 [facility] History of Present illness Narrative* Armen Madison MD - 07/29/2024 3:00 PM EDT [facility] [place] [facility] New Patient Visit Note Consultation [...] which included preparing to see the patient, ldqd-nq-bwax patient care, completing clinical documentation, performing a medically appropriate examination, counseling and educating the patient/family/caregiver, and ordering medications, tests,or procedures. Armen Madison MD Neuromuscular Medicine (NM) Staff [facility], [facility] [place] documented in this encounterSum[facility]04-18-2025 NoteHNO ID: [id number] Author: ARMEN MADISON MD Service: ? Author Type: Physician Type: Progress Notes Filed: 07/29/2024 15:33 Note Text: [facility] [place] [facility] New Patient Visit Note Consultation [...] will be communicated to the patient via telephone/[employer]. Patient to call office if not contacted after expected testing turnaround time. I spent a total of 34 minutes on the date of the service which included prepari (more content not included)...[facility]03-18-2025 Instructions* Patient Instructions* Em Flynn APRN.CNP [...] or you can send a message through [employer]. You can also now schedule and select appointments through [employer]. Em Flynn APRN.RUPALI documented in this encounterSum[facility]-2025 History of Present illness Narrative* Em Flynn APRN.RUPALI - 06/28/2024 8:00 AM EDT [facility] - FOLLOW UP EVALUATION The patient consented to the use of ambient [employer] software for draft documentation of the visit consistent with [facility] s Notice of Privacy Practices. Alexandra Arreguin APRN.RUPALI [address] [address] Dear Alexandra Arreguin APRN.CNP: I had the [...] directives (living will and durable power of cable inspector for healthcare): By Email: Send your document(s) to as an attachment in either PDF, TIFF, or JPEG format. By Mail: [facility], [employer] Directive Processing [address] [place], [place] [address] By In person at any [facility] location Please note: You can use the address or fax number regardless of which [facility] you utilize, and we will make sure [...] to being in heaven due to her Religion mark, which some people misinterpret as depression. [...] c) the amplitude decrements startingafter the 1st jrvb-cja-pmggz sequence. Hand Movements Left 2-Mild. a) 3 [...] or around: 12/29/24 Level of service : 20352 (40-68 min). Time spent 59 min on the day of service, which included preparing to see the patient, nkvr-uz-ukrc patient care, completing clinical documentation, obtaining and/or reviewing separately obtained history, performing a medically appropriate examination, counseling and educating the patient/family/caregiver, and ordering medications, tests, or procedures. Em Flynn APRN.RUPALI documented in this encounterSum[facility]03-18-2025 NoteHNO ID: [id number] Author: EM FLYNN APRN.CNP Service: ? Author Type: Nurse Practitioner Type: Progress Notes Filed: 06/28/2024 23:22 Note Text: [facility] - FOLLOW UP EVALUATION The patient consented to the use of ambient [employer] software for draft documentation of the visit consistent with [facility]?s Notice of Privacy Practices. Alexandra Arreguin APRN.CNP [address] [address] Dear Alexandra Arreguin APRN.BABY STROLLER RENTAL CLERK: I had the pleasure of seeing Ms. [...] directives (living will and durable power of cable inspector for healthcare): By Email: Send your document(s) to as an attachment in either PDF, TIFF, or JPEG format. By Mail: [facility], [employer] Directive Processing [address] [place], [place] [address] By In person at any [facility] location Please note: You can use the address or fax number regardless of which [facility] you utilize, and we will make sure [...] past who are n (more content not included)...[facility] 06-03-2024 Nuclear medicine Diagnostic study note [facility] Imaging Services [address] [place] [address] Hepatobilliary Img w/Pharm Int MR#: [id number] Acct: [id number] Name: MONISHA COHN Rep #: [id number] : 1940 F 84 From: Alejandro Tomlin MD PCP: Tressa Rosales Status: REG CLI Study:Hepatobilliary Img w/Pharm Int Date of Exam: 06/03/24 Exam# [id number] Ordering Dr: Deanna Lujan NP STUNT MAN-C PROCEDURE: HEPATOBILLIARY IMG W/PHARM INT REASON FOR [...] SCAN AND GALLBLADDER EJECTION FRACTION. Reading Location: [place] [address] CC: Didi VAZQUEZ NP-Mariajose Lujan; Tressa Rosales ~ Traffic Control Technician: Signed [facility] [place]12-04-2024 Evaluation note* Diagnosis Onset Date Resolution Status Admit Date Argyria chronic March 16, 2024 8:48am CAD (coronary artery disease) chroni c March 16, 2024 8:48am Essential (primary) hypertension chronic March 16 8:48am Hyperlipidemia chronic March 162023 8:48am Non-rheumatic mitral regurgitation chronic March 16 8:48am Parkinsons disease chronic Dece 2023 8:48am [facility] [place] Work Phone: 1(384) 870-763909-19-2024 Instructions* Patient Instructions* Em Flynn APRN.BABY STROLLER RENTAL CLERK - 12/31/2023 9:49 AM EDT It was [...] directives (living will and durable power of cable inspector for healthcare): By Email: Send your document(s) to as an attachment in either PDF, TIFF, or JPEG format. By Mail: [facility] Information Management, [employer] Advance Directive Processing [address] [place], [place] [address] By In person at any [facility] location Please note: You can use the address or fax number regardless of which [facility] you utilize, and we will make sure it is filed appropriately. Movement Disorders Medication Schedule: Medications 8AM 12PM 4PM 8PM Sinemet 25/100 2 1.5 1.5 1.5 Return at or around: 03/31/24 If there are any concerns before your next visit, please call or you can send a message through [employer]. You can also now schedule and select appointments through [employer]. Em Flynn APRN.RUPALI documented in this encounterSumma Health Akron Campus09-19-2024 History of Present illness Narrative* Em Flynn APRN.RUPALI - 12/31/2023 9:00 AM EDT [facility] - FOLLOW UP EVALUATION Alexandra Arreguin APRN.CNP [address] [facility] [address] [facility] [address] Dear Alexandra Arreguin APRN.CNP: I had the [...] Double vision: Please follow up with your cataract lens generator as scheduled Interested in clinical research? Not [...] other sensations: She is seen by an customer advisor specialist for her hip. Speech/Swallowing Speech problems: [...] c) the amplitude decrements startingafter the 1st qrbp-iqe-wgelw sequence. (She has a trigger finger) Hand [...] directives (living will and durable power of cable inspector for healthcare): By Email: Send your document(s) to as an attachment in either PDF, TIFF, or JPEG format. By Mail: [facility], [employer] Advance Directive Processing [address] [place], [place] [address] By In person at any [facility] location Please note: You can use the address or fax number regardless of which [facility] you utilize, and we will make sure it is filed appropriately. Updated Movement Disorders Medication Schedule: Medications 8AM 12PM 4PM 8PM Sinemet 25/100 2 1.5 1.5 1.5 Return at or around: 03/31/24 Level of service : 47448 ( 30-39 min). Time spent 39 min on the day of service, which included preparing to see the patient, yiqc-cy-dolp patient care, completing clinical documentation, obtaining and/or reviewing separately obtained history, performing a medically appropriate examination, counseling and educating the patient/family/caregiver, and ordering medications, tests, or procedures. Em Flynn APRN.RUPALI documented in this encounterSumma Health Akron Campus08-09-2024 Note* Letter - Coordinator, Mammography - 11/20/2023 10:34 AM EDT November 20, 2023 PID: [id number] Monisha Brink [address] [place] [address] Dear Ms. Cohn, We are pleased to [...] report will be kept on file at [facility] as part of your permanent medical record and are available for your continuing care. Thank you for allowing us to help in meeting your health care needs. Sincerely, Dr. George Interpreting Radiologist [facility] (Normal over 40) [facility]08-09-2024 Note* Letter - Coordinator, Mammography - 11/20/2023 10:34 AM EDT November 20, 2023 PID: [id number] Monisha Keena [address] [place] [address] Dear Ms. Cohn, We are pleased to [...] report will be kept on file at [facility] as part of your permanent medical record and are available for your continuing care. Thank you for allowing us to help in meeting your health care needs. Sincerely, Dr. George Interpreting Radiologist [facility] (Normal over 40) [facility]08-09-2024 Miscellaneous Notes* Letter - Coordinator, Mammography - 11/20/2023 10:34 AM EDT November 20, 2023 PID: [id number] Monisha Songtke [address] [place] [address] Dear Ms. Cohn, We are pleased to [...] report will be kept on file at [facility] as part of your permanent medical record and are available for your continuing care. Thank you for allowing us to help in meeting your health care needs. Sincerely, Dr. George Interpreting Radiologist [facility] (Normal over 40) * Letter - Coordinator, Mammography - 11/20/2023 10:34 AM EDT November 20, 2023 PID: [id number] Monisha Songtke [address] [place] [address] Dear Jorgito Cohn, We are pleased to [...] report will be kept on file at [facility] as part of your permanent medical record and are available for your continuing care. Thank you for allowing us to help in meeting your health care needs. Sincerely, Dr. George Interpreting Radiologist [facility] (Normal over 40) documented in this encounterSumma Health Akron Campus08-09-2024 History of Present illness Narrative* Chitra Larson Tech - 11/20/2023 7:45 AM EDT Radiology Service Progress Note PATIENT NAME: Monisha PANTOJAN: [id number] DATE OF SERVICE: November 20, 2023 TIME: [...] PATIENT PRESENTS WITH AN IMPLANTABLE OR ATTACHED MACHINE OPERATOR HOP WORKER: No RADIOLOGY DEPARTMENT: Mammography PERIPHERAL IV DATA: Not applicable SIGNED BY: Valentin Manzanares November 20, 2023 9:23 AM documented in this encounterSumma Health Akron Campus07-10-2024 Telephone encounter Note * Telephone Encounter - Rosie Cruz RN - 10/21/2023 10:01 AM EDT Received [employer] 10-20-23 at 12:28 PM. Co this is Rissa at [facility]. Calling in regards to Monisha Cohn. 42. She gotan order from the orthopedic to do therapy which they have started but they wanted to know what wastorn and I believe Dr. Sheehan was the one who did the MRI, or read the MRI. If someone could fax us over the notes they would appreciate it. The fax number is [phone]. If you have any questions you can call me back at [phone]. Thank you. Last office visit note with Stephan Sheehan PA-C & imaging report faxed to [facility] PT department. [facility]07-10-2024 Miscellaneous Notes* Telephone Encounter - Rosie Cruz RN - 10/21/2023 10:01 AM EDT Received voicemail 10-20-23 at 12:28 PM. Hi this is Rissa at [facility]. Calling in regards to Monisha Cohn. 42. She gotan order from the orthopedic to do therapy which they have started but they wanted to know what wastorn and I believe Dr. Sheehan was the one who did the MRI, or read the MRI. If someone could fax us over the notes they would appreciate it. The fax number is [phone]. If you have any questions you can call me back at [phone]. Thank you. Last office visit note with Stephan Sheehan PA-C & imaging report faxed to [facility] PT department. documented in this encounterSumma Health Akron Campus07-05-2024 Telephone encounter Note * Telephone Encounter - Karolina Sanders RN - 10/16/2023 2:31 PM EDT Called back number and spoke with therapist. Told her Yara's note Range of motion and rotator cuffstrengthening Claudia Wood PA-C [facility] Work Phone: 1(197) 919-530507-05-2024 Miscellaneous Notes* Telephone Encounter - Karolina Sanders [...] for the patient, please call facility at [phone], they alsoasked if we could send any office visit notes. documented in this encounterSumma Health Akron Campus07-05-2024 Telephone encounter Note * Telephone Encounter - Edwina Flanagan - 10/16/2023 10:02 AM EDT Patient is staying at a facility and is going physical therapy there. They were inquiring about what specific program needs to be done for the patient, please call facility at [phone], they alsoasked if we could send any office visit notes. [facility]06-21-2024 History of Present illness Narrative* Yury Jasso MD - 10/02/2023 8:54 AM EDTAssociated Order(s): Large Joint Arthro/Inj: L shoulder joint Post-Procedure Diagnose(s): Acute pain of left shoulder Images from the original note were not included. ORTHOPAEDIC SHOULDER & ELBOW SERVICE HISTORY & PHYSICAL EXAM REFERRING PROVIDER: Stephan Sheehan [address] [place], [place] [id number] CHIEF COMPLAINT: left shoulder pain PAIN EVALUATION 10/02/2023 0852 Pain Location: Shoulder-Left Description: Radiating;Aching;Sharp radiates to elbow, also to wrist Frequency: Continuous Intervention/Comfort measure: Heat;Medication;Reposition;Relaxation;Exercise tylenol, tramadol Comments: [facility] Monisha Cohn is a 83 year [...] negative Drop arm test: negative Biceps/bambi Signs Ponce's test: positive Michael deformity: negative Speed's test: [...] REFERRING PHYSICIAN: The patient was referred to mo for consultation by the following physician. This consultation note will be sent to the following physician by either mail or electronic medical record. Stephan Sheehan [address] [place] [id number] Yury Jasso MD Shoulder & Elbow Surgeon Department of Orthopaedic Surgery [facility] documented in this encounterSumma Health Akron Campus06-18-2024 History of Present illness Narrative* Kelly Stewart [...] PATIENT PRESENTS WITH AN IMPLANTABLE OR ATTACHED MACHINE OPERATOR HOP WORKER: No RADIOLOGY DEPARTMENT: General X-ray: Exam(s) Completed: Upper Extremity X- Ray(s): Shoulder, TRUE AP/ AXILLARY / SUPRA OUTLET left PERIPHERAL IV DATA: Not applicable SIGNED BY: Valentin Siddiqui September 29, 2023 10:18 AM documented in this encounterSumma Health Akron Campus06-18-2024 NoteHNO ID: [id number] Author: KELLY STEWART Tech Service: Radiology Author Type: Bat Boy/Girl Type: Progress Notes Filed: 09/29/2023 10:18 Note [...] PATIENT PRESENTS WITH AN IMPLANTABLE OR ATTACHED MACHINE OPERATOR HOP WORKER: No RADIOLOGY DEPARTMENT: General X-ray: Exam(s) Completed: Upper Extremity X-Ray(s): Shoulder, TRUE AP / AXILLARY / SUPRA OUTLET left PERIPHERAL IV DATA: Not applicable SIGNED BY: Valentin Siddiqui September 29, 2023 10:18 AM[facility] [id number] Instructions* Patient Instructions* Em Flynn APRN.BABY STROLLER RENTAL CLERK - 09/29/2023 9:38 AM EDT It was [...] Double vision: Please follow up with your cataract lens generator as scheduled Interested in clinical research? Not currently Movement Disorders Medication Schedule: Medications 8AM 12PM 4PM 8PM Sinemet 25/100 2 1.5 1.5 1.5 Return at or around: 12/30/23 If there are any concerns before your next visit, please call or you can send a message through [employer]. You can also now schedule and select appointments through [employer]. Em Flynn APRN.RUPALI documented in this encounterSumma Health Akron Campus06-18-2024 History of Present illness Narrative* Em Flynn APRN.CNP - 09/29/2023 9:00 AM EDT [facility] - FOLLOW UP EVALUATION Alexandra Arreguin APRN.BABY STROLLER RENTAL CLERK [address] [address] Dear Alexandra Arreguin APRN.BABY STROLLER RENTAL CLERK: I had the pleasure of seeing Ms. [...] 10points or more) please discuss with your director athletic. Hallucinations: I am hoping that the reduction in Sinemet helps these, but if it does not and they are bothering you, please let me know. Dysphagia (difficulty swallowing): I am ordering speech therapy for this and your quiet speech Double vision: Please follow up with your cataract lens generator Left arm pain/numbness and tingling: I have [...] them. These started before she moved to [place] and after she had her heart attack while in the hospital. Apathy: no She has motivation and is trying really hard to get out of the facility and move back [facility]. Impulse control disorder: No Palliative Concerns: Caregiver burden: Spiritual concerns: No Advanced directives on file: No I offered a SW consult but she wants to wait until she moves back to [place]. Palliative services: Therapy and Exercise: Last PT [...] the amplitude decrements starting after the 1st lvpc-ixs-yaoqk sequence. Arm Movements Right 1-Slight. a) the [...] Double vision: Please follow up with your cataract lens generator as scheduled Interested in clinical research? Not currently Updated Movement Disorders Medication Schedule: Medications 8AM 12PM 4PM 8PM Sinemet 25/100 2 1.5 1.5 1.5 Return at or around: 12/30/23 Level of service : 35776 ( 30-39 min). Time spent 37 min on the day of service, which included preparing to see the patient, taki-nq-sfis patient care, completing clinical documentation, obtaining and/or reviewing separately obtained history, performing a medically appropriate examination, counseling and educating the patient/family/caregiver, and ordering medications, tests, or procedures. Em Flynn APRN.BABY STROLLER RENTAL CLERK documented in this encounterSumma Health Akron Campus06-12-2024 NoteIMPRESSION: INCOMPLETE: NEEDS ADDITIONAL IMAGING EVALUATION Probable benign nodule retroareolar region LEFT breast found using tomosynthesis today. Benign-appearing asymmetric glandular tissue upper outer aspect LEFT breast. Ultrasound correlation will be performed. LIMITED ULTRASOUND OF LEFT BREAST: 09/23/2023 RESULT: Comparison is made to exam dated: 08/13/2023 mammogram - [facility] [place]. Ultrasound of was performed. Imaging was done [...] screening schedule is recommended. Ajay Bullock M.D. [facility], [facility]/gi:09/23/2023 10:55:35 Multiple national specialty organizations have released breast cancer screening guidelines for women at average risk for developing breast cancer - guidelines that are based on both evidence and opinion, yet differ on when to start and how often to screen for breast cancer. With representation from Breast Imaging, Internal Medicine, Women's Health, Family Medicine, and Medical/Surgical Oncology, the [facility] has carefully reviewed the data and reached [...] their providers when to stop screening mammograms. Pt Escort(s): RT Yumiko(R)(Tonie), [facility] [place]; RT Nicole(R), [facility] [place] OVERALL STUDY BIRADS: 2 Benign finding Traffic Control Technician: Gi Transcribe Date/Time: Sep 23 2023 9:21A Dictated by : AJAY BULLOCK MD This examination was interpreted and the report reviewed and electronically signed by: AJAY BULLOCK MD on Sep 23 2023 10:55AM [facility] [id number] History of Present illness Narrative* Tiago Mcnamara [...] PATIENT PRESENTS WITH AN IMPLANTABLE OR ATTACHED MACHINE OPERATOR HOP WORKER: No RADIOLOGY DEPARTMENT: Mammography PERIPHERAL IV DATA: [...] PATIENT PRESENTS WITH AN IMPLANTABLE OR ATTACHED MACHINE OPERATOR HOP WORKER: No RADIOLOGY DEPARTMENT: Ultrasound PERIPHERAL IV DATA: Not applicable SIGNED BY: Virginie Rios RDMS September 23, 2023 10:39 AM documented in this encounterSumma Health Akron Campus06-12-2024 NoteHNO ID: [id number] Author: TIAGO MCNAMARA CT Service: Radiology Author [...] PATIENT PRESENTS WITH AN IMPLANTABLE OR ATTACHED MACHINE OPERATOR HOP WORKER: No RADIOLOGY DEPARTMENT: Mammography PERIPHERAL IV DATA: Not applicable SIGNED BY: RT Yumiko September 23, 2023 9:42 [facility] [id number] NoteHNO ID: [id number] Author: VIRGINIE RIOS RDMS Service: Radiology Author Type: Java Web Developer Type: Progress Notes Filed: 09/23/2023 10:39 Note [...] PATIENT PRESENTS WITH AN IMPLANTABLE OR ATTACHED MACHINE OPERATOR HOP WORKER: No RADIOLOGY DEPARTMENT: Ultrasound PERIPHERAL IV DATA: Not applicable SIGNED BY: Virginie Rios RDMS September 23, 2023 10:39 [facility] [id number] Telephone encounter Note* Telephone Encounter - Mary Ann Villalobos - 09/02/2023 1:18 PM EDT Received call from Rissa at [facility]. Patient would like to complete Physical Therapy on-site at the facility. Order for PT faxed to their facility via [employer]. Mary Ann Villalobos [facility]05-22-2024 Miscellaneous Notes* Telephone Encounter - Mary Ann Villalobos - 09/02/2023 1:18 PM EDT Received call from Rissa at [facility]. Patient would like to complete Physical Therapy on-site at the facility. Order for PT faxed to their facility via [employer]. Mary Ann Villalobos documented in this encounterSumma Health Akron Campus05-16-2024 History of Present illness Narrative* Stephan Sheehan PA-C - 08/27/2023 1:40 PM EDT Images from the original note were not included. Stephan Sheehan PA-C [facility] [address] [place] [address] 08/27/2023 ASSESSMENT AND PLAN: Assessment : Encounter [...] today with this patient visit. This includes cqhh-ig-bjch time, review of chart records regarding conservative care history, spine- pertinent imaging, and communication/care coordination with referring provider, problem-specific history-taking and counseling/education regarding treatment options. cc: Em Flynn [address] [address] Results of consultation to be transmitted via electronic medical record for those providers who practice within [facility] or with access to [employer] via [employer], or via letter. ######################################################################## [...] L: 5/5 Triceps R: 5/5 L: 4/5 Petrography Teacher R: 5/5 L: 5/5 Interossei R: +4/5 [...] STUDIES: See discussion above documented in this encounterSumma Health Akron Campus05-03-2024 Note* Letter - Coordinator, Mammography - 08/14/2023 11:00 AM EDT August 14, 2023 PID: [id number] Monisha Cohn [address] [place] [address] Dear Ms. Cohn, Your recent breast imaging [...] so).Additional Imaging cannot be self scheduled in [place]. If you DO NOT have a healthcare provider (ie you did not have an order/prescription for your screening mammogram): Please call to schedule an appointment for your additional imaging (if you have not already done so). Additonal Imaging cannot be self scheduled in [place]. This exam cannot be self scheduled in [place]. You must have an order/prescription from your physician when calling to schedule your appointment. If your order/prescription is not electronic, you must bring the hard copy with you on the day of your exam Your imaging studies and reports are kept on file at [facility] as part of your permanent medical record, and are available for your continuing care. Thank you for allowing us to help in meeting your health care needs. Sincerely, Dr. Castellanos Interpreting Radiologist [facility] [place] (Additional imaging) [facility]05-03-2024 Miscellaneous Notes* Letter - Coordinator, Mammography - 08/14/2023 11:00 AM EDT August 14, 2023 PID: [id number] Monisha Songtke [address] [place] [address] Dear Ms. Cohn, Your recent breast imaging [...] so).Additional Imaging cannot be self scheduled in [place]. If you DO NOT have a healthcare provider (ie you did not have an order/prescription for your screening mammogram): Please call to schedule an appointment for your additional imaging (if you have not already done so). Additonal Imaging cannot be self scheduled in [facility]. This exam cannot be self scheduled in [facility]. You must have an order/prescription from your physician when calling to schedule your appointment. If your order/prescription is not electronic, you must bring the hard copy with you on the day of your exam Your imaging studies and reports are kept on file at [facility] as part of your permanent medical record, and are available for your continuing care. Thank you for allowing us to help in meeting your health care needs. Sincerely, Dr. Castellanos Interpreting Radiologist [facility] [place] (Additional imaging) documented in this encounterSumma Health Akron Campus05-02-2024 History of Present illness Narrative* Tiago Mcnamara [...] PATIENT PRESENTS WITH AN IMPLANTABLE OR ATTACHED MACHINE OPERATOR HOP WORKER: No RADIOLOGY DEPARTMENT: Bone Density and Mammography PERIPHERAL IV DATA: Not applicable SIGNED BY: ANCA López August 13, 2023 2:15 PM documented in this encounterSumma Health Akron Campus05-02-2024 NoteHNO ID: [id number] Author: TIAGO MCNAMARA CT Service: Radiology Author [...] PATIENT PRESENTS WITH AN IMPLANTABLE OR ATTACHED MACHINE OPERATOR HOP WORKER: No RADIOLOGY DEPARTMENT: Bone Density and Mammography PERIPHERAL IV DATA: Not applicable SIGNED BY: ANCA López August 13, 2023 2:15 PMSelect [facility] [id number] Telephone encounter Note* Telephone Encounter - Em Flynn APRN.BABY STROLLER RENTAL CLERK - 08/03/2023 6:17 PM EDT I called and reviewed her results with her and let her know that I did communicate with a spine medicine provider who also reviewed her cervical spine MRI. He recommended that she start with spine medicine so I will have our schedulers call to set this up. She said they need to arrange this with Rissa at the [facility] as this is the individual who would drive her to her appointments. STONE Lockhart [facility]04-22-2024 Miscellaneous Notes* Telephone Encounter - Em Flynn [...] to arrange this with Rissa at the [facility] as this is the individual who would drive her to her appointments. STONE Lockhart documented in this encounterSumma Health Akron Campus03-25-2024 Instructions* Patient Instructions* Em Flynn APRN.CNP - [...] 10points or more) please discuss with your director athletic. Date/Time BP Sitting Heart Rate Sitting BP Standing Heart Rate Standing Hallucinations: I am hoping that the reduction in Sinemet helps these, but if it does not and they are bothering you, please let me know. Dysphagia (difficulty swallowing): I am ordering speech therapy for this and your quiet speech Vision changes: Please follow up with your cataract lens generator. Left arm pain/numbness and tingling: I have ordered a neck MRI. Movement Disorders Medication Schedule: Medications 8AM 12PM 4PM 8PM Sinemet 25/100 2 1.5 1.5 1.5 Return in about 3 months (around 10/06/2023). If there are any concerns before your next visit, please call or you can send a message through [employer]. You can also now schedule and select appointments through [employer]. Em Flynn APRN.RUPALI documented in this encounterSumma Health Akron Campus03-25-2024 History of Present illness Narrative* Em Flynn APRN.CNP - 07/06/2023 8:22 AM EDT [facility] - FOLLOW UP EVALUATION Alexandra Arreguin APRN.BABY STROLLER RENTAL CLERK [address] [address] Dear Alexandra Arreguin APRN.CNP: I had the [...] points or more) please discuss with your director athletic. Date/Time BP Sitting Heart Rate Sitting BP [...] They still want to move back to [place]. She was discharged from physical therapy. She [...] them. These started before she moved to [place] and after shehad her heart attack while in the hospital. Apathy: no She has motivation and is trying really hard to get out of the facility. Impulse control disorder: No Palliative Concerns: Caregiver burden: Spiritual concerns: No Advanced directives on file: No I offered a SW consult but she wants to wait until she moves back to [place]. Palliative services: Therapy and Exercise: Last PT [...] the amplitude decrements starting after the 1st jira-mjf-tvkcl sequence. Arm Movements Right 1-Slight. a) the [...] 10points or more) please discuss with your director athletic. Date/Time BP Sitting Heart Rate Sitting BP Standing Heart Rate Standing Hallucinations: I am hoping that the reduction in Sinemet helps these, but if it does not and they are bothering you, please let me know. Dysphagia (difficulty swallowing): I am ordering speech therapy for this and your quiet speech Vision changes: Please follow up with your cataract lens generator. Left arm pain/numbness and tingling: I have ordered a neck MRI. Updated Movement Disorders Medication Schedule: Medications 8AM 12PM 4PM 8PM Sinemet 25/100 2 1.5 1.5 1.5 Level of service : 32393 (40-54 min). Time spent 45 min on the day of service, which included preparing to see the patient, cmnh-cc-wnug patient care, completing clinical documentation, obtaining and/or reviewing separately obtained history, performing a medically appropriate examination, counseling and educating the patient/family/caregiver, and ordering medications, tests, or procedures. Em Flynn APRN.BABY STROLLER RENTAL CLERK documented in this encounterSumma Health Akron Campus01-19-2024 Discharge summary Author Law Gold [facility] May 01, 2023 4:21pm Note Date/Time May 01, 2023 1 :42pm [facility] Medical Records Department [address] [place] [address] Emergency Department Summary 05/01/23 MR#: [id number] Acct: [id number] Name: MONISHA COHN Rep #:[id number] 9 : 1940 83 From: Law Longoria [...] any other injuries. Patient denies any lacerations. [facility] Medical History Atherosclerotic heart disease of [place] coronary artery without angina pectoris Bladder spasms [...] motor deficits and no sensory deficits noted [place] Coma Scale: document GCS findings Spontaneous Obeys [...] % (Auto) 62.2 Lymph % (Auto) 19.9 [place] % (Auto) 11.6 H Eos % (Auto) [...] Alexandra Arreguin NP Referrals: Alexandra Arreguin NP, STUNT MAN-C [Primary Care Provider] - 5-7 Days Disposition Disposition: Home, Self Care What to do if you have Problems For any increased pain, shortness of breath, bleeding, nausea or vomiting, chestpain, or any unexpected problems, contact your Primary Care Provider. Call [facility] ([phone]) or report to the closest Emergency Room. Call 911 if necessary. 05/01/23 1621 <Electronically signed by Law Gold DO> Cosigner Signature (if applicable): CC: STUNT MAN-C Alexandra Arreguin ~ Signed [facility] Work Phone: 1([phone] 581-270310-27-2023 Discharge summary Author Darline Lundy [facility] February 06, 2023 2:09pm Note Date/Time February 06, 2023 1 2:33pm [facility] Medical Records Department [address] [place] [address] Transfer to [facility] MR#: [id number] Acct: [id number] Name: MONISHA COHN Rep #:[id number] 4 : 1940 82 From: Darline Lundy MD PCP: JACQUI Ann Status:ADM IN Certification of patient admission REQUIRED AT TIME OF ADMISSION. I CERTIFY THAT POST-HOSPITAL ECF SERVICES ARE REQUIRED TO BE GIVEN ON AN IN-PATIENT BASIS BECAUSE OF THE ABOVE NAMED PATIENT'S NEED FOR PENITENTIARY CARE ON A CONTINUING BASIS FOR THE [...] skin hue, Obesity who presents to the [facility] ED on 02/01/23 with history of [...] - Active Staff] - 02/18/23 Alexandra Arreguin STUNT MAN, STUNT MAN-C [Primary Care Provider] - Disposition Disposition (needs filled in before D/C Order can be placed): Intermediate Facility (1) Closed hip fracture Qualifiers: Encounter type: initial encounter Laterality: left Qualified Code(s): S72.002A - Fracture of unspecified part of neck of left femur, initial encounterfor closed fracture 02/06/23 1233 <Electronically signed by Darline Lundy MD> Cosigner Signature (if applicable): CC: STUNT MAN-C Alexandra Arreguin; Dr. Jasmin Steele MD; Dr. Davian Grier DO ~ ADDENDUM by Dr. Darline Lundy MD on 02/06/23 at 1409 Addendum COREG STOPPED D/T BP STILL BEING ON LOW SIDE, PT ASYMPTOMATIC HOWEVER, NO OTHER CHANGES MADE 02/06/23 1409 <Electronically signed by Darline Lundy MD> cc: STUNT MAN-Mariajose Arreguin; Dr. Jasmin Steele MD; Dr. Davian Grier DO ~* Signed [facility] Work Phone: 1([phone]) 856-663110-27-2023 Discharge summary Author Darline Lundy [facility] February 06, 2023 2:09pm Note Date/Time February 06, 2023 1 2:35pm [facility] Medical Records Department [address] [place], [place] [address] [address] Discharge Summary 02/06/23 1234 MR#: [id number] Acct: [id number] Name: MONISHA COHN Rep #:[id number] 8 : 1940 82 From: Darline Lundy MD PCP: JACQUI Ann Status:ADM IN Location: [facility] IN056-5 Providers Date of Admission: 02/01/23 Date of [...] skin hue, Obesity who presents to the [facility] ED on 02/01/23 with history of [...] skin hue, Obesity who presents to the [facility] ED on 02/01/23 with history of [...] % (Auto) 55.6, Lymph % (Auto) 30.5, [place] % (Auto) 10.2 H, Eos % (Auto) [...] Active Staff] - 02/18/23 Alexandra Arreguin NP, STUNT MAN-C [Primary Care Provider] - Disposition Disposition (needs filled in before D/C Order can be placed): Intermediate Facility Charges/Coding Visit Charges Inpatient E&M: 76155 Disch Hosp >30min 02/06/23 1235 <Electronically signed [...] Arreguin; Dr. Darline Lundy MD ~* Signed [facility] Work Phone: 1(491) 848-195310-26-2023 Progress note Author Darline Lundy [facility] February 05, 2023 5:07pm Note Date/Time February 05, 2023 4 :55pm [facility] Medical Records Department [address] [place] [address] [place] [address] Progress Note - Hospitalist 02/05/23 1651 MR#: [id number] Acct: [id number] Name: MONISHA COHN Rep #:[id number] 6 : 1940 82 From: Darline Lundy MD PCP: Alexandra Arreguin, STUNT MAN-C Status:ADM IN Location: [facility] [id number] Reason for Visit Reason for Visit: Diagnoses [...] (Auto) 67.7, Lymph % (Auto) 18.8 L, [place] % (Auto) 11.3 H, Eos % (Auto) [...] documentation, 26minutes Charges/Coding Visit Charges Inpatient E&M: 13547 Subs Hosp L1 02/05/23 1707 <Electronically signed by Darline Lundy MD> Cosigner Signature (if applicable): CC: ~ Signed [facility] Work Phone: 1(163) 202-444910-25-2023 Progress note Author Darline uLndy [facility] February 04, 2023 8:56am Note Date/Time February 04, 2023 7 :12am [facility] Medical Records Department [address] [place] [address] Progress Note - Hospitalist 02/04/23 0710 MR#: [id number] Acct: [id number] Name: MONISHA COHN Rep #:[id number] 6 : 1940 82 From: Darline Lundy MD PCP: Alexandra Arreguin, STUNT MAN-C Status:ADM IN Location: MS3 VX086-5 Reason for Visit Reason for Visit: Diagnoses [...] 70.8 H, Lymph % (Auto) 15.0 L, [place] % (Auto) 12.4 H, Eos % (Auto) [...] DVT prophylaxis in addition SCDs and BELEN imckeye -02/04: Hemoglobin stable status posttransfusion, resume aspirin [...] documentation, 40minutes Charges/Coding Visit Charges Inpatient E&M: 57670 Subs Hosp L2 02/04/23 0856 <Electronically signed by Darline Lundy MD> Cosigner Signature (if applicable): CC: ~ Signed [facility] Work Phone: 1(999) 484-713610-24-2023 Progress note Author Darline Lundy [facility] February 03, 2023 10:04am Note Date/Time February 03, 2023 7 :22am [facility] Medical Records Department [address] [place] [address] Progress Note - Hospitalist 02/03/23 0717 MR#: [id number] Acct: [id number] Name: MONISHA COHN Rep #:[id number] 2 : 1940 82 From: Darline Lundy MD PCP: JACQUI Ann Status:ADM [facility] Reason for Visit Reason for Visit: Diagnoses [...] 71.1 H, Lymph % (Auto) 14.6 L, [place] % (Auto) 13.2 H, Eos % (Auto) [...] documentation, 40minutes Charges/Coding Visit Charges Inpatient E&M: 19134 Subs Hosp L2 02/03/23 1004 <Electronically signed by Darline Lundy MD> Cosigner Signature (if applicable): CC: ~ Signed [facility] Work Phone: 1(130) 616-848610-24-2023 Progress note Author Jaylon Boone [facility] February 03, 2023 7:05am Note Date/Time February 03, 2023 7 :05am [facility] Medical Records Department [facility] [place] [address] Progress Note - Hospitalist 02/03/23 07 MR#: [id number] Acct: [id number] Name: MONISHA COHN Rep #:[id number] 4 : 1940 82 From: Jaylon Fontana PCP: JACQUI Ann Status:ADM IN Location: [place] [address] Hospitalist Note Since hemoglobin dropped from 9.1-5.6 after surgery. Most likely acute blood loss after surgery, postop anemia. Units PRBC type and crossmatch and transfuseslowly. Patient had a STEMI in December 2021. Aspirin hold. Plavix currentlydiscontinued but informed the attending and might resume when bleeding is stable. 02/03/23704 <Electronically signed by Jaylon Boone MD> Cosigner Signature (if applicable): CC: ~ Signed [facility] Work Phone: 1(959) 126-261410-24-2023 Progress note Author Davian Grier [facility] February 03, 2023 6:03am Note Date/Time February 03, 2023 6 :03am [facility] Medical Records Department [address] [place] [address] Progress Note - Orthopedic 02/03/23 0601 MR#: [id number] Acct: [id number] Name: MONISHA COHN Rep #:[id number] 1 : 1940 82 From: Davian beasley DO PCP: JACQUI Ann Status:ADM IN Location: [place] [address] Subjective Subjective Patient seen and examined. Pain [...] % (Auto) 62.1, Lymph % (Auto) 25.2, [place]% (Auto) 11.7 H, Eos % (Auto) 0.3, [...] Cosigner Signature (if applicable): CC: ~ Signed [facility] Work Phone: 1(155) 134-321410-24-2023 Discharge summary Author Law Gold [facility] February 03, 2023 12:29am Note Date/Time February 01, 2023 2 :21pm [facility] Medical Records Department [address] [place] [address] Emergency Department Summary 02/01/23 MR#: [id number] Acct: [id number] Name: MONISHA COHN Rep #:[id number] : 1940 82 From: Niko OSMAN PCP: Alexandra Arreguin, STUNT MAN-C Status:ADM IN Location: MS3 OJ096-6 [facility] <JACQUI Cano - Last Filed: 02/01/23 15:12> History of Present Illness Chief Complaint: Fall Narrative Narrative: Patient is a 82-year-old female with history of Parkinson disease, CAD, NC who presents to the emergency department after [...] with her and her daughter [facility] <JACQUI Cano - Last Filed: 02/01/23 15:12> [facility] Medical History Atherosclerotic heart disease of [place] coronary artery without angina pectoris Bladder spasms [...] Oxygen Delivery Method Room Air Room Air [facility] <JACQUI Cano - Last Filed: 02/01/23 15:12> [facility] Lab Data Labs: Laboratory Results - last 24 hr 02/01/23 14:05 WBC 4.8 RBC 3.93 L Hgb 10.8 L Hct 35.2 L MCV 89.6 MCH 27.5 MCHC 30.7 L RDW Std Deviation 41.8 RDW Coeff of Aleena 12.6 Plt Count 255 MPV 8.7 Immature Gran % (Auto) 0.200 Neut % (Auto) 60.2 Lymph % (Auto) 28.0 [place] % (Auto) 8.9 Eos % (Auto) 1.7 [...] 14:52 EDT Reading Location ID and State: [id number] / [employer] , Service support , Chest X-Ray 02/01/23 14:00 IMPRESSION: Normal x-ray examination of the chest. Electronically Signed: Chun Martinez MD at 14:53 EDT , Femur X-Ray 02/01/23 14:00 IMPRESSION: Acute distracted fracture of the intertrochanteric left femur. Electronically Signed: Chun Martinez MD at 14:55 EDT Reading Location ID and State: 5167 / [employer] , Service support , Pelvis X-Ray 02/01/23 14:00 IMPRESSION: Acute distracted fracture of the intertrochanteric left femur. Electronically Signed: Chun Martinez MD at 14:54 EDT Reading Location ID and State: 1407 / [employer] , Service support , Elbow X-Ray 02/01/23 15:12 IMPRESSION: Normal x-ray examination of the elbow. Electronically Signed: Chun Martinez MD at 15:29 EDT Reading Location ID and State: 8417 / [employer] , Service support , EKG EKG shows a normal sinus rhythm: Attestation: I personally reviewed and interpreted this EKG as follows: Comments: Normal sinus rhythm, rate of 71 bpm, MT 150 ms, QRS duration 68 ms. No [...] Gold, DO - Last Filed: 02/01/23 15:58> [facility] Narrative Medical decision making narrative: I [...] % (Auto) 60.2 Lymph % (Auto) 28.0 [place] % (Auto) 8.9 Eos % (Auto) 1.7 [...] 14:52 EDT Reading Location ID and State: [employer] , Service support , Chest X-Ray 02/01/23 14:00 IMPRESSION: Normal x-ray examination of the chest. Electronically Signed: Chun Martinez MD at 14:53 EDT Reading Location ID and State: [employer] , Service support , Femur X-Ray 02/01/23 14:00 IMPRESSION: Acute distracted fracture of the intertrochanteric left femur. Electronically Signed: Chun Martinez MD at 14:55 EDT Reading Location ID and State: [employer] , Service support , Pelvis X-Ray 02/01/23 14:00 IMPRESSION: Acute distracted fracture of the intertrochanteric left femur. Electronically Signed: Chun Martinez MD at 14:54 EDT Reading Location ID and State: [employer] , Service support , Elbow X-Ray 02/01/23 15:12 IMPRESSION: Normal x-ray examination of the elbow. Electronically Signed: Chun Martinez MD at 15:29 EDT Reading Location ID and State: [employer] , Service support , Discharge Plan [...] your Primary Care Provider. Call [facility] ([phone]) or report to the closest Emergency Room. Call 911 if necessary. 02/02/232110 <Electronically signed by Niko LANDAC> Cosigner Signature (if applicable): 02/03/23 0029 <Electronically signed by Law Gold DO> CC: STUNT MAN-C Alexandra Arreguin ~ Signed [facility] Work Phone: 1([phone]) 403-501510-23-[address] [facility] 02-02-2023 Progress note Author Darline Lundy [facility] February 02, 2023 10:59am Note Date/Time February 02, 2023 7 :44am [facility] Medical Records Department [address] [place] [address] Progress Note - Hospitalist 02/02/23 0739 MR#: [id number] Acct: [id number] Name: MONISHA COHN Rep #:[id number] 1 : 1940 82 From: Darline Lundy MD PCP: JACQUI Ann Status:ADM IN Location: [place] [address] Reason for Visit Reason for Visit: Diagnoses [...] % (Auto) 60.2, Lymph % (Auto) 28.0, [place]% (Auto) 8.9, Eos % (Auto) 1.7, Baso [...] % (Auto) 62.1, Lymph % (Auto) 25.2, [place]% (Auto) 11.7 H, Eos % (Auto) 0.3, [...] 14:52 EDT Reading Location ID and State: [employer] , Service support , Chest X-Ray 02/01/23 14:00 IMPRESSION: Normal x-ray examination of the chest. Electronically Signed: Chun Martinez MD at 14:53 EDT Reading Location ID and State: [employer] , Service support , Femur X-Ray 02/01/23 14:00 IMPRESSION: Acute distracted fracture of the intertrochanteric left femur. Electronically Signed: Chun Martinez MD at 14:55 EDT Reading Location ID and State: [employer] , Service support , Pelvis X-Ray [...] documentation, 36minutes Charges/Coding Visit Charges Inpatient E&M: 32153 Subs Hosp L2 02/02/23 1059 <Electronically signed by Darline Lundy MD> Cosigner Signature (if applicable): CC: ~ Signed [facility] Work Phone: 1(930) 827-137010-22-2023 Progress note Author [facility] Paolo [facility] February 01, 2023 9:42pm Note Date/Time February 01, 2023 9 :42pm [facility] Medical Records Department [address] [facility] [place] [address] Progress Note - Hospitalist 02/01/232141 MR#: [id number] Acct: [id number] Name: MONISHA COHN Rep #:[id number] 1 : 1940 82 From: Jaylon Fontana PCP: Alexandra Arreguin STUNT MAN-C Status:ADM IN Location: [facility] HE468-8 Hospitalist Note As per the nurse, patient changed her mind from DNRCC arrest to full code. She wants to be full code. CODE STATUS changed to full code. 02/01/232141 <Electronically signed by Jaylon Boone MD> Cosigner Signature (if applicable): CC: ~ Signed [facility] Work Phone: 1([phone]) 958-286510-22-2023 Consult note Author Davian Grier [facility] February 01, 2023 7:27pm Note Date/Time February 01, 2023 7 :27pm [facility] Medical Records Department [address] [place] [address] Consultation - Orthopedics 02/01/231921 MR#: [id number] Acct: [id number] Name: MONISHA COHN Rep #:[id number] 3 : 1940 82 From: Davian beasley DO PCP: SYEDA AnnC Status:ADM IN Location: MS3 SL239-8 HPI Consult Data Date of Consult: 02/01/23 HPI Narrative Reason for Consultation: Left hip fracture HPI Narrative: MONISHA COHN, is a 82 F who presents to [facility] emergency department after a mechanical fall from [...] past. Denies history of VTE. [facility] Medical History (Updated 02/01/23 @ 19:[address] Davian Grier, ) Atherosclerotic heart disease of [place] coronary artery without angina pectoris Bladder spasms [...] % (Auto) 60.2, Lymph % (Auto) 28.0, [place]% (Auto) 8.9, Eos % (Auto) 1.7, Baso [...] 14:52 EDT Reading Location ID and State: [employer] , Service support , Chest X-Ray 02/01/23 14:00 IMPRESSION: Normal x-ray examination of the chest. Electronically Signed: Chun Martinez MD at 14:53 EDT Reading Location ID and State: [employer] , Service support , Femur X-Ray 02/01/23 14:00 IMPRESSION: Acute distracted fracture of the intertrochanteric left femur. Electronically Signed: Chun Martinez MD at 14:55 EDT Reading Location ID and State: [employer] , Service support , Pelvis X-Ray 02/01/23 14:00 IMPRESSION: Acute distracted fracture of the intertrochanteric left femur. Electronically Signed: Chun Martinez MD at 14:54 EDT Reading Location ID and State: [employer] , Service support , Elbow X-Ray [...] JACQUI Arreguin; Dr. Davian Grier DO~ Signed [facility] Work Phone: 1(930) 354-886310-22-2023 History and physical note Author Jasmin Steele [facility] February 01, 2023 4:28pm Note Date/Time February 01, 2023 3 :26pm [facility] Medical Records Department [address] [place] [address] H&P Exam - Hospitalist 02/01/23 1526 MR#: [id number] Acct: [id number] Name: MONISHA COHN Rep #:[id number] 3 : 1940 82 From: Jasmin Steele MD PCP: SYEDA AnnC Status:ADM IN Location: MS3 XJ516-9 HPI - General General Date of Admission: 02/01/23 Date of Service: 02/01/23 Chief Complaint: Fall, L hip pain. HPI Narrative The patient is an 82 y/o F w/ PMHx: CAD s/p PCI, HTN, HLD, COPD, Parkinson's disease, Chronic urgency/bladder spasms following with Urology, Gout, Fibromyalgia, Hx usage silver water with chronically silver skin hue, Obesity who presents to the [facility] ED on 02/01/23 with history of [...] She notes she is able to tolerate Nancy and per daughter Dilaudid low-dose. In the ED she was administered Zofran 4 mg IV x2 and morphine 4 mg IV x2 and did not have a significant reaction thus far but discussed and if any concerns arise or hives would administer medications as needed. [facility] Medical History (Updated 02/01/23 @ 16:[address] Jasmin Steele MD) Atherosclerotic heart disease of [place] coronary artery without angina pectoris Bladder spasms [...] % (Auto) 60.2, Lymph % (Auto) 28.0, [place]% (Auto) 8.9, Eos % (Auto) 1.7, Baso [...] 14:52 EDT Reading Location ID and State: [employer] , Service support , Chest X-Ray 02/01/23 14:00 IMPRESSION: Normal x-ray examination of the chest. Electronically Signed: Chun Martinez MD at 14:53 EDT Reading Location ID and State: [employer] , Service support , Femur X-Ray 02/01/23 14:00 IMPRESSION: Acute distracted fracture of the intertrochanteric left femur. Electronically Signed: Chun Martinez MD at 14:55 EDT Reading Location ID and State: [employer] , Service support , Pelvis X-Ray 02/01/23 14:00 IMPRESSION: Acute distracted fracture of the intertrochanteric left femur. Electronically Signed: Chun Martinez MD at 14:54 EDT Reading Location ID and State: [id number] / [employer] , Service support , Assessment & Plan Assessment/Plan (1) Closed hip fracture: PLAN: Plan The patient is an 82 y/o F w/ PMHx: CAD s/p PCI, HTN, HLD, COPD, Parkinson's disease, Chronic urgency/bladder spasms following with Urology, Gout, Fibromyalgia, Hx usage silver water with chronically silver skin hue, Obesity who presents to the [facility] ED on 02/01/23 with history of [...] 16 minutes. Charges/Coding Visit Charges Inpatient E&M: 49348 Init Hosp L3 Procedures Hospitalists Procedures: 50676 Advncd Care Plan 30 Min 02/01/23 1628 <Electronically signed by Jasmin Steele MD> Cosigner Signature (if applicable): CC: JACQUI Arreguin; Dr. Jasmin Steele MD~ Signed [facility] Work Phone: 1(925) 835-118810-10-2023 Instructions* Patient Instructions* Em Flynn APRN.BABY STROLLER RENTAL CLERK - 01/20/2023 3:48 PM EDT It was [...] points or more) please discuss with your director athletic. Date/Time BP Sitting Heart Rate Sitting BP [...] or you can send a message through [employer]. You can also now schedule and select appointments through [employer]. Em Flynn APRN.RUPALI documented in this encounterSumma Health [facility]ron Campus10-10-2023 History of Present illness Narrative* Em Flynn APRN.CNP - 01/20/2023 3:00 PM EDT [facility] - FOLLOW UP EVALUATION Alexandra Arreguin APRN.CNP [address] [place] [id number] Dear Alexandra Arreguin APRN.CNP: I had the [...] exercising and going to physical therapy at [facility] and this is going well so she feels she is doing good. They are thinking about moving back to [place] as other than the above, they are [...] them. These started before she moved to [place] and after shehad her heart attack while [...] to wait until she moves back to [place]. Palliative services: Therapy and Exercise: Last PT [...] c) the amplitude decrements startingafter the 1st ysgt-lxv-spzna sequence. Hand Movements Left 2-Mild. a) 3 [...] been experiencing hallucinations since she moved to [place], but she was embarrassed so she said [...] and to have informationwhen discussing with her director athletic. She also believes she has only been taking one of the two blood pressure medications prescribed (we called her director athletic office and verified that she is supposed [...] points or more) please discuss with your director athletic. Date/Time BP Sitting Heart Rate Sitting BP [...] Duloxetine 20mg 2 Level of service : 43194 (40-54 min). Time spent 50 min on the day of service, which included preparing to see the patient, amjz-pr-jepz patient care, completing clinical documentation, obtaining and/or reviewing separately obtained history, performing a medically appropriate examination, counseling and educating the patient/family/caregiver, and ordering medications, tests, or procedures. Em Flynn APRN.BABY STROLLER RENTAL CLERK documented in this encounterSumma Health Akron Campus06-29-2023 Miscellaneous Notes* Addendum Note - Linden Flynn MD - 10/09/2022 1:32 PM EDTAddended by: LINDEN FLYNN on: 10/09/2022 01:32 PM Modules accepted: Orders documented in this encounterSumma Health Akron Campus06-29-2023 Instructions* Patient Instructions* Linden Flynn MD - [...] or you can send a message through [employer]. You can also now schedule and select appointments through [employer]. Linden Flynn MD documented in this encounterSumma Health Akron Campus06-29-2023 History of Present illness Narrative* Linden Flynn [...] she used to. She moved here from [place]. She is blue from taking silver water [...] Achilles 2+ 2+ Plantar Downgoing Downgoing Coordination Bznozs-ec-nbvd, rapid alternating movements and gjay-sq-zsym normal bilaterally without dysmetria. Gait Casual gait [...] c) the amplitude decrements startingafter the 1st gsmm-aia-atbpn sequence. Hand Movements Left 3-Moderate. a) more than 5 interruptions during the movement or at least one longer arrest (freeze) in ongoing movement, b) moderate slowing, c) the amplitude decrements starting after the 1st oqeh-vvd-cnrad sequence. Arm Movements Right 2-Mild. a) 3 [...] Sincerely, Linden Flynn MD documented in this encounterSum[facility] CampusDis[facility] summary [facility] [address] [place] [address] Discharge Summary 01/25/25 1449 MR#: [id number] Acct: [id number] Name: MONISHA COHN Rep #:[id number] : 1940 84 From: Davian interiano MD PCP: Tressa Rosales Status:DIS IN Location: [facility] [id number] Providers Date of Admission: 01/20/25 Primary Care [...] and pulmonary hypertension, CAD; withRCA stent at [facility] in [place] (2009) and subsequent inferior wall ST elevation [place] s/p RCA stent with cardiogenic shock and [...] recently diagnosed COVID-19 who was transferred from [facility] she was diagnosed with an impacted Right [...] LOC with her fall. Dr. North of [facility] spoke to Dr. Tijerina of the orthopedic [...] risks and benefits of going to the detention and would like to go today. Hemoglobin [...] in before D/C Order can be placed): Intermediate Facility Charges/Coding Visit Charges Inpatient E&M: 10717 Disch Hosp >30min 01/25/25 145 Cosigner Signature (if applicable): CC: Dr. Davian Kelly MD; Tressa Rosales~ Signed [facility] Author Davian Kelyl [facility] Note Date/Time January 25, 2025 2 :52pm [facility] Medical Records Department [address] [place] [id number] Discharge Summary 01/25/25 1449 MR#: [id number] Acct: [id number] Name: MONISHA COHN Rep #:[id number] : 1940 84 From: Davian interiano MD PCP: Tressa Rosales Status:DIS IN Location: [facility] [id number] Providers Date of Admission: 01/20/25 Primary Care [...] and pulmonary hypertension, CAD; withRCA stent at [facility] in [place] (2009) and subsequent inferior wall ST elevation [place] s/p RCA stent with cardiogenic shock and [...] recently diagnosed COVID-19 who was transferred from [facility] after she was diagnosed with an impacted [...] LOC with her fall. Dr. North of [facility] spoke to Dr. Tijerina of the orthopedic [...] risks and benefits of going to the detention and would like to go today. Hemoglobin [...] in before D/C Order can be placed): Intermediate Facility Charges/Coding Visit Charges Inpatient E&M: 98245 Disch Hosp >30min 01/25/25 1452 <Electronically signed by Davian Kelly MD> Cosigner Signature (if applicable): CC: Dr. Davian Kelly MD; Tressa Rosales~ Signed [facility] Work Phone: Evaluation note* Diagnosis Onset Date Resolution Status Bladder spasms acute Edema, lower extremity acute Gout acute Hyperlipidemia acute Urgency of urination acute [facility] Work Phone: Evaluation note* Diagnosis Parkinson's disease (HCC)- Primary Paralysis agitans Argyria of skin, accidental or unintentional, sequela Depression, unspecified depression type documented in this encounter [facility]* Diagnosis Parkinson's disease without dyskinesia or fluctuating manifestations- Primary Hallucinations Orthostatic hypotension Insomnia, unspecified type documented in this encounter [facility] note* Diagnosis Onset Date Resolution Status CAD (coronary artery disease) chronic Essential (primary) hypertension chronic Hyperlipidemia chronic Non-rheumatic mitral regurgitation chronic Parkinsons disease chronic CHI (closed head injury) acu te Closed hip fracture acute Fall acute History of Parkinson's disease acute [facility] Work Phone: Evaluation note* Diagnosis Onset Date Resolution Status Closed hip fracture acute History of Parkinson's disease acute [facility] Work Phone: Evaluation note* Diagnosis Parkinson's disease without dyskinesia or fluctuating manifestations (HCC)- Primary Orthostatic hypotension Dysphagia, unspecified type Left arm pain Pain in limb Numbness and tingling in left arm Disturbance of skin sensation documented in this encounter [facility]* Diagnosis Protrusion of cervical intervertebral disc- Primary documented in this encounter [facility]* Diagnosis Acute pain of left shoulder- Primary Protrusion of cervical intervertebral disc Pain in left elbow Pain in joint, upper arm documented in this encounter [facility]* Diagnosis Chronic left shoulder pain- Primary Pain in joint, shoulder region documented in this encounter [facility]* Diagnosis Parkinson's disease without dyskinesia or fluctuating manifestations (HCC)- Primary Orthostatic hypotension Hallucinations Dysphagia, unspecified type documented in this encounter [facility]* Diagnosis Acute pain of left shoulder [facility] Diagnosis Chronic left shoulder pain Pain in joint, shoulder region [facility]* Diagnosis Dysphagia, unspecified type- Primary Parkinson's disease without dyskinesia or fluctuating manifestations (HCC) Orthostatic hypotension documented in this encounter [facility]* Diagnosis Dysphagia, unspecified type- Primary Parkinson's disease with dyskinesia without fluctuating manifestations (HCC) Numbness and tingling of both feet Hallucinations documented in this encounter [facility]* Diagnosis Numbness and tingling of both feet documented in this encounter [facility]* Diagnosis Onset Date Resolution Status Admit Date 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 CAD (coronary artery disease) chroni c September 27, 2024 10:37am Essential (primary) hypertension chr onic September 27, 2024 10:37am Hyperlipidemia chronic September 27, 2024 10:37am Non-rheumatic mitral regurgitation chronic September 27, 2024 10:37am Parkinsons disease chronic September 112024 10:37am [facility] Work Phone: Reason for referral (narrative)* Diagnostic Procedure Only (Routine) - Pending Review Specialty Diagnoses / Procedures Referred By Contac t Referred To Contact XR IMAGING Diagnoses Chronic left shoulder pain Procedures XR SHOULDER GENERAL 3V OR MORE AP/TRUE AP/OTHER LEFT RADEX SHOULDER COMPLETE MINIMUM 2 VIEWS Claudia Manuel PA-C [address] [place] [address] [place] [address] Referral ID Status Reason Start Date Expiration Date Visits Requested Visits Authorized [id number] Pending Review Auto-Generat ed Referral 09/15/2023 10/13/[address] [facility] for referral (narrative)* Diagnostic Procedure Only (Routine) - Closed Specialty Diagnoses / Procedures Referred By Contac t Referred To Contact XR IMAGING Diagnoses Chronic left shoulder pain Procedures XR SHOULDER GENERAL 3V OR MORE AP/TRUE AP/OTHER LEFT RADEX SHOULDER COMPLETE MINIMUM 2 VIEWS Claudia Manuel PA-C [address] [place] [address] [place] [address] Referral ID Status Reason Start Date Expiration Date V isits Requested Visits Authorized [id number] Closed Auto-Generate d Referral 09/15/2023 10/13/[address] [facility] for referral (narrative)No reason for referral information availableWHolzer [facility] Work Phone: [facility] for visit Narrative* Diagnostic Procedure Only (Routine) - Closed Specialty Diagnoses / Procedures Referred By Contac t Referred To Contact XR IMAGING Diagnoses Chronic left shoulder pain Procedures XR SHOULDER GENERAL 3V OR MORE AP/TRUE AP/OTHER LEFT RADEX SHOULDER COMPLETE MINIMUM 2 VIEWS Claudia Manuel PA-C [address] [place] [address] [place] [address] Referral ID Status Reason Start Date Expiration Date V isits Requested Visits Authorized [id number] Closed Auto-Generate d Referral 09/15/2023 10/13/2024 1 1 [facility] Chief Complaint and Reason for Visit Chief [...] December 28, 2024 12:46pm Essential (primary) hypertension [facility] 2024 12:46pm Parkinsons disease December 28, 2024 [...] December 28, 2024 12:46pm Essential (primary) hypertension [facility] 2024 12:46pm Parkinsons disease December 28, 2024 [...] Procedures PROVIDER ORDERED FOLLOW UP OFFICE/OUTPATIENT [facility] MDM 60-74 MINUTES Linden Flynn MD [address] [place] [address] Referral ID Status Reason Start Date Expiration Date Visits Requested Visits Authorized [id number] Pending Review PCP Requested Referral 10/09/2022 01/07/2023 1 1 Specialty Diagnoses / Procedures Referred By Arely t Referred To Contact [facility] Diagnoses Parkinson's disease (HCC) Procedures CONSULT TO DRAFTER ENGINEERING OCCUPATIONAL THERAPY EVAL HIGH COMPLEX 60 MINS Linden Flynn MD [address] [place] [address] [facility] [address] [address] Referral ID Status Reason Start Date Expiration Date Visits Requested Visits Authorized [id number] Pending Review Auto-Generat ed Referral 10/09/2022 10/09/2023 1 1 Specialty Diagnoses / Procedures Referred By Arely t Referred To Contact [facility] Diagnoses Parkinson's disease (HCC) Procedures CONSULT TO PHYSICAL THERAPY PHYSICAL THERAPY EVALUATION HIGH COMPLEX 45 MINS Linden Flynn MD [address] [place] [address] [facility] [address] [address] Referral ID Status Reason Start Date Expiration Date Visits Requested Visits Authorized [id number] Pending Review Auto-Generat ed Referral 10/09/2022 10/09/2023 1 1 Specialty Diagnoses / Procedures Referred By Contac t Referred To Contact MR IMAGING Diagnoses Spinal stenosis of cervical region Procedures MRI CERVICAL SPINE WO IVCON MRI SPINAL CANAL CERVICAL W/O CONTRAST MATRL Em Flynn, SCREEN EXAMINER.BABY STROLLER RENTAL CLERK [address] [place] [phone] Mr Imaging [place] [address] Referral ID Status Reason Start Date Expiration Date Visits Requested Visits Authorized [id number] Authorized Auto-Generat ed Referral 07/06/2023 08/04/2024 1 1 Referral ID Status Reason Start Date Expiration Date V isits Requested Visits Authorized [id number] Closed Auto-Generate d Referral 07/06/2023 08/04/2024 1 1 Specialty Diagnoses / Procedures Referred By Contac t Referred To Contact [facility] [place] Diagnoses Protrusion of cervical intervertebral disc Procedures CONSULT TO [facility] OFFICE/OUTPATIENT [facility] 60 MINUTES Em Flynn, SCREEN EXAMINER.BABY STROLLER RENTAL CLERK [address] [place] [phone] Referral ID Status Reason Start Date Expiration Date Visits Requested Visits Authorized [id number] Authorized PCP Requested Referral 08/03/2023 08/02/2024 1 1 Specialty Diagnoses / Procedures Referred By Contac t Referred To Contact Orthopedics Diagnoses Acute pain of left shoulder Pain in left elbow Procedures CONSULT TO ORTHOPAEDICS OFFICE/OUTPATIENT [facility] 60 MINUTES Stephan Sheehan PA-C [address] [phone] Referral ID Status Reason Start Date Expiration Date Visits Requested Visits Authorized [id number] Authorized PCP Requested Referral 08/27/2023 08/26/2024 1 1 Specialty Diagnoses / Procedures Referred By Contac t Referred To Contact [facility] Diagnoses Protrusion of cervical intervertebral disc Acute pain of left shoulder Pain in left elbow Procedures CONSULT TO PHYSICAL THERAPY PHYSICAL THERAPY EVALUATION HIGH COMPLEX 45 MINS Stephan Sheehan PA-C [address] [phone] [facility] [place] [address] [place] [address] Referral ID Status Reason Start Date Expiration Date Visits Requested Visits Authorized [id number] Pending Review Auto-Generat ed Referral 08/27/2023 08/26/2024 1 1 Specialty Diagnoses / Procedures Referred By Contac t Referred To Contact Diagnoses Parkinson's disease without dyskinesia or fluctuating manifestations (HCC) Procedures PROVIDER ORDERED FOLLOW UP OFFICE/OUTPATIENT NEW HIGH MDM 60 MINUTES Em Flynn, SCREEN EXAMINER.BABY STROLLER RENTAL CLERK [address] [address] Referral ID Status Reason Start Date Expiration Date Visits Requested Visits Authorized [id number] Authorized PCP Requested Referral 12/30/2023 09/28/2024 1 1 Specialty Diagnoses / Procedures Referred By Contac t Referred To Contact [facility] Diagnoses Parkinson's disease without dyskinesia or fluctuating manifestations (HCC) Procedures CONSULT TO PHYSICAL THERAPY PHYSICAL THERAPY EVALUATION HIGH COMPLEX 45 MINS Em Flynn, PAT.BABY STROLLER RENTAL CLERK [address] [address] [facility] [address] [place] [address] Referral ID Status Reason Start Date Expiration Date Visits Requested Visits Authorized [id number] Pending Review Auto-Generat ed Referral 09/29/2023 09/28/2024 1 1 Specialty Diagnoses / Procedures Referred By Contac t Referred To Contact [facility] Diagnoses Acute pain of left shoulder Procedures CONSULT TO PHYSICAL THERAPY PHYSICAL THERAPY EVALUATION HIGH COMPLEX 45 MINS Claudia Manuel PA-C [address] [place] [address] [facility] [address] [place] [address] Referral ID Status Reason Start Date Expiration Date Visits Requested Visits Authorized [id number] Pending Review Auto-Generat ed Referral 10/02/2023 10/01/2024 1 1 Referral ID Status Reason Start Date Expiration Date Visits Requested Visits Authorized [id number] Authorized PCP Requested Referral 12/30/2024 1 1 Specialty Diagnoses / Procedures Referred By Contac t Referred To Contact [facility] Diagnoses Parkinson's disease without dyskinesia or fluctuating manifestations (HCC) Dysphagia, unspecified type Procedures CONSULT TO SPEECH THERAPY OFFICE/OUTPATIENT [facility] 60 MINUTES Em Flynn APRN.BABY STROLLER RENTAL CLERK [address] [address] [facility] [place] [address] [place] [address] Referral ID Status Reason Start Date Expiration Date Visits Requested Visits Authorized [id number] Pending Review Auto-Generat ed Referral 12/31/2023 12/30/2024 1 1 Advance Directives No Advanced Directives Records Found Advance Directive Response Recorded Date/ Time Living Will No February 01 1:49pm Power of Revenue Cycle Administrator No February 01, 2023 1:49pm Advance Directive Response Recorded Date/ Time Living Will No February 01 4:06pm Power of Revenue Cycle Administrator No February 01, 2023 4:06pm Advance Directive Response Recorded Date/ Time Name of Medical Power of Revenue Cycle Administrator Palmira, daughter , CHRISTY May 01, 2023 1:29pm Living Will No May 01 1:29pm Power of Revenue Cycle Administrator Yes May 01, 2023 1:29pm Advance Directive Response Recorded Date/ Time Do you have a Healthcare Power of Revenue Cycle Administrator? Yes January 20, 2025 1:18am Name of Medical Power of Revenue Cycle Administrator palmira mayer January 20, 2025 1:18am Summary [...] or prosecute any alcohol or drug abuse patient.[facility] CampusIn the event this information is protected by the Federal Confidentiality of Alcohol and Drug Abuse Patient Records regulations: The Federal rules restrict any use of the information to criminally investigate or prosecute any alcohol or drug abuse patient.[facility] CampusIn the event this information is protected by the Federal Confidentiality of Alcohol and Drug Abuse Patient Records regulations: The Federal rules restrict any use of the information to criminally investigate or prosecute any alcohol or drug abuse patient.[facility] CampusIn the event this information is protected by the Federal Confidentiality of Alcohol and Drug Abuse Patient Records regulations: The Federal rules restrict any use of the information to criminally investigate or prosecute any alcohol or drug abuse patient.[facility] CampusIn the event this information is protected by the Federal Confidentiality of Alcohol and Drug Abuse Patient Records regulations: The Federal rules restrict any use of the information to criminally investigate or prosecute any alcohol or drug abuse patient.[facility] CampusIn the event this information is protected by the Federal Confidentiality of Alcohol and Drug Abuse Patient Records regulations: The Federal rules restrict any use of the information to criminally investigate or prosecute any alcohol or drug abuse patient.[facility] CampusIn the event this information is protected by the Federal Confidentiality of Alcohol and Drug Abuse Patient Records regulations: The Federal rules restrict any use of the information to criminally investigate or prosecute any alcohol or drug abuse patient.[facility] CampusIn the event this information is protected by the Federal Confidentiality of Alcohol and Drug Abuse Patient Records regulations: The Federal rules restrict any use of the information to criminally investigate or prosecute any alcohol or drug abuse patient.[facility] CampusIn the event this information is protected by the Federal Confidentiality of Alcohol and Drug Abuse Patient Records regulations: The Federal rules restrict any use of the information to criminally investigate or prosecute any alcohol or drug abuse patient.[facility] CampusIn the event this information is protected by the Federal Confidentiality of Alcohol and Drug Abuse Patient Records regulations: The Federal rules restrict any use of the information to criminally investigate or prosecute any alcohol or drug abuse patient.[facility] CampusIn the event this information is protected by the Federal Confidentiality of Alcohol and Drug Abuse Patient Records regulations: The Federal rules restrict any use of the information to criminally investigate or prosecute any alcohol or drug abuse patient.[facility] CampusIn the event this information is protected by the Federal Confidentiality of Alcohol and Drug Abuse Patient Records regulations: The Federal rules restrict any use of the information to criminally investigate or prosecute any alcohol or drug abuse patient.[facility] CampusIn the event this information is protected by the Federal Confidentiality of Alcohol and Drug Abuse Patient Records regulations: The Federal rules restrict any use of the information to criminally investigate or prosecute any alcohol or drug abuse patient.[facility] CampusIn the event this information is protected by the Federal Confidentiality of Alcohol and Drug Abuse Patient Records regulations: The Federal rules restrict any use of the information to criminally investigate or prosecute any alcohol or drug abuse patient.[facility] CampusIn the event this information is protected by the Federal Confidentiality of Alcohol and Drug Abuse Patient Records regulations: The Federal rules restrict any use of the information to criminally investigate or prosecute any alcohol or drug abuse patient.[facility] CampusIn the event this information is protected by the Federal Confidentiality of Alcohol and Drug Abuse Patient Records regulations: The Federal rules restrict any use of the information to criminally investigate or prosecute any alcohol or drug abuse patient.[facility] CampusIn the event this information is protected by the Federal Confidentiality of Alcohol and Drug Abuse Patient Records regulations: The Federal rules restrict any use of the information to criminally investigate or prosecute any alcohol or drug abuse patient.[facility] CampusIn the event this information is protected by the Federal Confidentiality of Alcohol and Drug Abuse Patient Records regulations: The Federal rules restrict any use of the information to criminally investigate or prosecute any alcohol or drug abuse patient.[facility] CampusIn the event this information is protected by the Federal Confidentiality of Alcohol and Drug Abuse Patient Records regulations: The Federal rules restrict any use of the information to criminally investigate or prosecute any alcohol or drug abuse patient.[facility] CampusIn the event this information is protected by the Federal Confidentiality of Alcohol and Drug Abuse Patient Records regulations: The Federal rules restrict any use of the information to criminally investigate or prosecute any alcohol or drug abuse patient.[facility] CampusIn the event this information is protected by the Federal Confidentiality of Alcohol and Drug Abuse Patient Records regulations: The Federal rules restrict any use of the information to criminally investigate or prosecute any alcohol or drug abuse patient.[facility] CampusIn the event this information is protected by the Federal Confidentiality of Alcohol and Drug Abuse Patient Records regulations: The Federal rules restrict any use of the information to criminally investigate or prosecute any alcohol or drug abuse patient.[facility] Reason for Visit (unrecogniz ed section and content) Reason Comments New Patient Evaluation Reason Comments Parkinson's Disease Specialty Diagnoses / Procedures Referred By Arely carlson Referred To Contact Diagnoses Parkinson's disease Procedures PROVIDER ORDERED FOLLOW UP OFFICE/OUTPATIENT NEW HIGH MDM 60-74 MINUTES Linden Flynn MD [address] [place] [address] Referral ID Status Reason Start Date Expiration Date V isits Requested Visits Authorized [id number] Closed PCP Requested Referral 10/09/2022 01/07/2023 1 1 Reason Comments Follow Up Pt wants to discuss left arm pain and left groin pain Parkinson's Disease Specialty Diagnoses / Procedures Referred By Arely carlson Referred To Contact MR IMAGING Diagnoses Spinal stenosis of cervical region Procedures MRI CERVICAL SPINE WO IVCON MRI SPINAL CANAL CERVICAL W/O CONTRAST Em Walker APRN.RUPALI [address] [place] [address] [place] [address] Referral ID Status Reason Start Date Expiration Date V isits Requested Visits Authorized [id number] Closed Auto-Generate d Referral 07/06/2023 08/04/2024 1 1 Reason Comments Results Reason Comments Neck Pain Neck pain Left arm p ain. Would like to discuss MRI and X-ray Results. Specialty Diagnoses / Procedures Referred By Contac t Referred To Contact [facility] [place] Diagnoses Protrusion of cervical intervertebral disc Procedures CONSULT TO [facility] OFFICE/OUTPATIENT [facility] 60 MINUTES Em Flynn, PAT.BABY STROLLER RENTAL CLERK [address] [place] [address] Referral ID Status Reason Start Date Expiration Date V isits Requested Visits Authorized [id number] Closed PCP Requested Referral 08/03/2023 08/02/2024 1 1 Reason Comments Parkinson's Disease Follow Up Reason Comments New Pain Specialty Diagnoses / Procedures Referred By Contac t Referred To Contact Orthopedics Diagnoses Acute pain of left shoulder Pain in left elbow Procedures CONSULT TO ORTHOPAEDICS OFFICE/OUTPATIENT [facility] 60 MINUTES Stephan Sheehan PA-C [address] [place] [address] Referral ID Status Reason Start Date Expiration Date V isits Requested Visits Authorized [id number] Closed PCP Requested Referral 08/27/2023 08/26/2024 1 1 Reason Comments Patient Update 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 Reason Comments Parkinson's Disease Specialty Diagnoses / Procedures Referred By Contac t Referred To Contact Diagnoses Parkinson's disease without dyskinesia or fluctuating manifestations (HCC) Procedures PROVIDER ORDERED FOLLOW UP OFFICE/OUTPATIENT [facility] 60 MINUTES Em Flynn, SCREEN EXAMINER.BABY STROLLER RENTAL CLERK [address] [place] [phone] Referral ID Status Reason Start Date Expiration Date V isits Requested Visits Authorized [id number] Closed PCP Requested Referral 12/30/2023 09/28/2024 1 1 Reason Comments Parkinson's Disease Specialty Diagnoses / Procedures Referred By Contac t Referred To Contact Diagnoses Parkinson's disease without dyskinesia or fluctuating manifestations (HCC) Procedures PROVIDER ORDERED FOLLOW UP OFFICE/OUTPATIENT [facility] 60 MINUTES Em Flynn, SCREEN EXAMINER.BABY STROLLER RENTAL CLERK [address] [place] [address] Phone: tel: fax: Referral ID Status Reason Start Date Expiration Date V isits Requested Visits Authorized [id number] Closed PCP Requested Referral 03/31/2024 12/30/2024 1 1 Reason Comments Neuropathy Specialty Diagnoses / Procedures Referred By Contac t Referred To Contact Neurology Diagnoses Numbness and tingling of both feet Numbness and tingling in both hands Procedures CONSULT TO NEUROLOGY OFFICE/OUTPATIENT [facility] 60 MINUTES Em Flynn, SCREEN EXAMINER.BABY STROLLER RENTAL CLERK [address] [place] [address] Phone: tel: fax: Referral ID Status Reason Start Date Expiration Date V isits Requested Visits Authorized [id number] Closed PCP Requested Referral 06/28/2024 06/28/2025 1 1 Care Teams (unrecognized sec tion and content) Team Status: Active Member Role Status Dates Alexandra Arreguin STUNT MAN, STUNT MAN-C Primary Care Provider Active Team Status: Active Member Role Status Dates Alexandra Arreguin NP, STUNT MAN-C Primary Care Provider Active Dr. Law Gold , DO Emergency Provider Active Dr. Jasmin Steele MD Admit Provider, Other Provider Active Dr. Davian Grier , DO Other Provider Active Dr. Darline Lundy MD Attending Provider, Other Provid er Active Team Status: Active Member Role Status Dates Alexandra Arreguin NP, STUNT MAN-C Primary Care Provider Active Dr. Law Gold , DO Emergency Provider Active Dr. Jasmin Steele MD Admit Provider, Other Provider Active Dr. Darline Lundy MD Other Provider Active Dr. Davian Grier , DO Other Provider Active Dr. Jaylon Boone MD Attending Provider Active Team Status: Active Member Role Status Dates Alexandra Arreguin NP, STUNT MAN-C Primary Care Provider Active Dr. Law Gold , DO Emergency Provider Active Dr. Jasmin Steele MD Admit Provider, Other Provider Active Dr. Darline Lundy MD Attending Provider, Other Provid er Active Dr. Davian Grier , DO Other Provider Active Team Status: Inactive Member Role Status Dates Alexandra Arreguin NP, STUNT MAN-C Primary Care Provider Active Dr. Danielle Vernon MD Attending Provider, Referring Pr ovider Active Team Status: Inactive Member Role Status Dates Alexandra Arreguin STUNT MAN, STUNT MAN-C Primary Care Provider Active Dr. Law Gold , DO Emergency Provider Active Dr. Jasmin Steele MD Admit Provider, Other Provider Active Dr. Darline Lundy MD Attending Provider Active Dr. Davian Grier , Other Provider Active Team Status: Inactive Member Role Status Dates Alexandra Arreguin STUNT MAN, STUNT MAN-C Primary Care Provider Active Dr. Law Gold , DO Emergency Provider Active Tunnel Man Relationship Specialty Start Date End Date Alexandra Arreguin, SCREEN EXAMINER.BABY STROLLER RENTAL CLERK [address] [place], [place] [phone] PCP - General Family Medicine 01/20/23 Team Status: Inactive Member Role Status Dates Alexandra Arreguin STUNT MAN, STUNT MAN-C Primary Care Provider, Referr ing Provider Active Dr. Danielle Vernon MD Attending Provider Active Team Status: Active Member Role Status Dates Alexandra Arreguin STUNT MAN, STUNT MAN-C Primary Care Provider Active Dr. Law Gold , DO Emergency Provider Active Dr. Jasmin Steele MD Admit Provider, Attending Prov ider Active Tunnel Man Relationship Specialty Start Date End Date Alexandra Arreguin, SCREEN EXAMINER.BABY STROLLER RENTAL CLERK [address] [place] [address] PCP - General Family Medicine 01/20/23 Tunnel Man Relationship Specialty Start Date End Date Alexandra Arreguin, SCREEN EXAMINER.BABY STROLLER RENTAL CLERK [address] [place] [address] PCP - General Family Medicine 01/20/23 Tunnel Man Relationship Specialty Start Date End Date Alexandra Arreguin, SCREEN EXAMINER.BABY STROLLER RENTAL CLERK [address] [place], [place] [phone] PCP - General Family Medicine 01/20/23 Tunnel Man Relationship Specialty Start Date End Date Alexandra Arreguin, SCREEN EXAMINER.BABY STROLLER RENTAL CLERK [address] [place] [address] PCP - General Family Medicine 01/20/23 Tunnel Man Relationship Specialty Start Date End Date Alexandra Arreguin, SCREEN EXAMINER.BABY STROLLER RENTAL CLERK [address] [place], [place] [phone] PCP - General Family Medicine 01/20/23 Tunnel Man Relationship Specialty Start Date End Date Alexandra Arreguin, SCREEN EXAMINER.BABY STROLLER RENTAL CLERK [address] [place], [place] [phone] PCP - General Family Medicine 01/20/23 Tunnel Man Relationship Specialty Start Date End Date Alexandra Arreguin, SCREEN EXAMINER.BABY STROLLER RENTAL CLERK [address] [facility] [place] [address] PCP - General Family Medicine 01/20/23 Tunnel Man Relationship Specialty Start Date End Date Alexandra Arreguin, SCREEN EXAMINER.BABY STROLLER RENTAL CLERK [address] [place] [address] PCP - General Family Medicine 01/20/23 Tunnel Man Relationship Specialty Start Date End Date Alexandra Arreguin, SCREEN EXAMINER.BABY STROLLER RENTAL CLERK [address] [place] [address] PCP - General Family Medicine 01/20/23 Tunnel Man Relationship Specialty Start Date End Date Alexandra Arreguin, SCREEN EXAMINER.BABY STROLLER RENTAL CLERK [address] [place] [address] PCP - General Family Medicine 01/20/23 Tunnel Man Relationship Specialty Start Date End Date Alexandra Arreguin, SCREEN EXAMINER.BABY STROLLER RENTAL CLERK [address] [place], [place] [phone] PCP - General Family Medicine 01/20/23 Tunnel Man Relationship Specialty Start Date End Date Alexandra Arreguin, SCREEN EXAMINER.BABY STROLLER RENTAL CLERK [address] [place], [place] [phone] PCP - General Family Medicine 01/20/23 Tunnel Man Relationship Specialty Start Date End Date Alexandra Arreguin, SCREEN EXAMINER.BABY STROLLER RENTAL CLERK [address] [place], [place] [phone] PCP - General Family Medicine 01/20/23 Tunnel Man Relationship Specialty Start Date End Date Alexandra Arreguin, SCREEN EXAMINER.BABY STROLLER RENTAL CLERK [address] [place], [place] [phone] PCP - General Family Medicine 01/20/23 Tunnel Man Relationship Specialty Start Date End Date Alexandra Arreguin, SCREEN EXAMINER.BABY STROLLER RENTAL CLERK [address] [place], [place] [phone] PCP - General Family Medicine 01/20/23 Tunnel Man Relationship Specialty Start Date End Date Alexandra Arreguin, SCREEN EXAMINER.BABY STROLLER RENTAL CLERK [address] [place], [place] [phone] PCP - General Family Medicine 01/20/23 Team Status: Active Member Role Status Dates Tressa HALL Primary Care Provider Active Team Status: Inactive Member Role Status Dates Alexandra Arreguin STUNT MAN, STUNT MAN-C Primary Care Provider Active Start: March 16, 2024 End: March 16, 2024 Alexandra Arreguin STUNT MAN, STUNT MAN-C Referring Provider Active Start: March 16, 2024 End: March 16, 2024 Dr. Danielle Vernon MD Attending Provider Active Start: March 16, 2024 End: March 16, 2024 Team Status: Inactive Member Role Status Dates Didi Lujan STUNT MAN, STUNT MAN-C Attending Provider Active Start: June 03, 2024 End: June 03, 2024 Didi Lujan STUNT MAN, STUNT MAN-C Referring Provider Active Start: June 03, 2024 End: June 03, 2024 Tressa HALL Primary Care Provider Active Start: June 03, 2024 End: June 03, 2024 Tunnel Man Relationship Specialty Start Date End Date Alexandra Arreguin, PAT.BABY STROLLER RENTAL CLERK [address] [facility] [address] [place] [address] PCP - General Family Medicine 01/20/23 Team [...] December 28, 2024 End: December 28, 2024 Tresas HALL Referring Provider Active Start: December 28, [...] Active Start: January 20, 2025 Dr. Stephan Mratel DO Admitting physician Active Start: January 20, 2025 Dr. Stephan Martel DO Attending physician Active Start: January 20, 2025 Dr. Stephan Martel , DO Nurse Practitioner Active Start: January 20, 2025 Dr. Braulio Tijerina MD Nurse Practitioner Active Start: January 20, 2025 Team Status: Active Member Role/Relationship Status Dates [facility] Bobby ISABEL Primary care physician Active Start: January 20, 2025 Dr. Danielle Vernon MD Attending physician Active Start: January 20, 2025 Dr. Danielle Vernon MD Referring Provider Active Start: January 20, 2025 Team Status: Active Member Role/Relationship Status Dates [facility] Bobby ISABEL Primary care physician Active Start: [...] Team Status: Active Member Role/Relationship Status Dates [facility] Bobby ISABEL Primary care physician Active Start: [...] Team Status: Active Member Role/Relationship Status Dates [facility] ISABEL Primary care physician Active Start: [...] section and content) DATE CREATED AUTHOR 10/02/2023 [facility] DATE CREATED AUTHOR AUTHOR'S ORGANIZ ATION 12/30/2024 [facility] DATE CREATED AUTHOR AUTHOR'S ORGANIZ ATION 01/22/2025 [facility] DATE CREATED AUTHOR AUTHOR'S ORGANIZ ATION 02/16/2025 [facility] FOR RECORDS PERTAINING TO PATIENTS WHO ARE [...] BE BASED ON THE PRIMARY CLINICAL RECORDS. [facility] [employer] provides no warranty or guarantee of the accuracy or completeness of information in this document.
--- NOTE | 2025-02-28 20:10 | PHA.PHARE_ITS ---
Consult Antibiotic Management Pharmacy has been consulted to manage selected antibiotic: Vancomycin Type of Intervention Type of Consult: New start Prior Doses of Antibiotics Prior Doses of Antibiotics Received/Current Regimen: had vanc 2000mg IV x1 in E.R. starting at 18:07 tonight Labs Labs: Sodium 134 mmol/L (133-145) 02/28/25 16:50 Potassium 3.8 mmol/L (3.3-5.1) 02/28/25 16:50 Chloride 100 mmol/L (98-108) 02/28/25 16:50 Carbon Dioxide 23.0 mmol/L (21.0-32.0) 02/28/25 16:50 Anion Gap 11 (5-15) 02/28/25 16:50 BUN 20 mg/dL (4-19) H 02/28/25 16:50 Creatinine 0.95 mg/dL (0.70-1.20) 02/28/25 16:50 Est GFR (MDRD) Non-Af 59 (>60) L 02/28/25 16:50 BUN/Creatinine Ratio 20.9 RATIO (10-20) H 02/28/25 16:50 Glucose 103 mg/dL (70-99) H 02/28/25 16:50 Dosing Weight Weight used for dosin.9 kg Goal Trough Goal Trough: 15-20 mcg/mL Pharmacy Plan for Drug Dosing Pharmacy Plan for Drug Dosing: Starting 12 hours after the E.R. dose, continue with 500mg IV q12h per [facility] dosing protocol. Will check a trough before the 4th overall dose. Pharmacy Service will continue to monitor and adjust dosing as required. Follow-Up Labs Follow-Up Labs: Trough: Vancomycin Date/Time Labs Ordered Labs to be done on [date and time ordered]: 03/02/25 05:30
[2025-02-28] MEDS: 0.9% Normal Saline (1000mL) 1,000 ML 150 ML IV (21:14)
[2025-02-28] MEDS: Senna Tablet 1 TABLET PO (22:55)
[2025-03-01] VITALS (9 sets, daily range): BP systolic 100–138; BP diastolic 46–70; PULSE 83–102; RESP 16–18; TEMP 36.8–37.2; O2SAT 98–100
[2025-03-01] MEDS: Vancomycin HCl 500 MG in 0.9% Normal Saline (100mL Bag) 100 ML 100 MG IV ×2 (05:00→18:03)
[2025-03-01 06:18] LABS: Hematocrit 25.7 % (37-47); Hemoglobin 7.9 g/dL (12.0-15.0); Mean Corp Hgb Conc 30.7 g/dL (32-36); Mean Corpuscular Volume 86.0 fL (81-99); Mean Platelet Vol. 8.7 fl (6.2-12.0); Platelet Count 380 K/mm3 (150-450); RBC Distribution Width CV 14.0 % (11.6-14.6); RBC Distribution Width SD 44.6 fl (35.1-43.9); Red Blood Count 2.99 M/mm3 (4.2-5.4); White Blood Count 15.6 K/mm3 (4.4-11.0)
[2025-03-01] MEDS: Piperacil/Tazobactam 3.375 GM in 0.9% Normal Saline (50mL MB+) 50 ML IV ×3 (06:29→21:08)
[2025-03-01 06:50] LABS: Anion Gap 9 (5-15); BUN 17 mg/dL (4-19); BUN/Creat Ratio 25.8 RATIO (10-20); Calcium,Total 7.5 mg/dL (7.6-11.0); Carbon Dioxide 20.4 mmol/L (21.0-32.0); Chloride 107 mmol/L (98-108); Estimated Creatinine Clearance 50.15 ml/min (50-250); Glucose 94 mg/dL (70-99); Potassium 3.7 mmol/L (3.3-5.1)
--- NOTE | 2025-03-01 07:57 | PN.HOSP_ITS ---
Reason for Visit Chief Complaint: Right hip wound infection Subjective Subjective Still with pain in hip. Objective Data Objective Data Vital Signs: Vital Signs Temp Pulse Resp BP Pulse Ox O2 Del Method 36.8 C 100 16 114/46 L 98 Room Air 03/01/25 05:11 03/01/25 05:11 03/01/25 05:11 03/01/25 05:11 03/01/25 05:11 03/01/25 05:11 Oxygen Delivery Method Room Air Weight: 73.9 kg Body Mass Index (BMI) 29.7 Intake & Output: Intake and Output for Last 24 Hours 02/27/25 02/28/25 03/01/25 23:59 23:59 23:59 Intake Total 1590 / 1740 1460 / 1460 Output Total 200 / 200 Balance 1590 / 1640 1260 / 1260 Lab / Micro Data 03/01/25 05:09 03/01/25 05:09 Labs: Laboratory Results - last 24 hr 02/28/25 16:50: WBC 19.1 H, RBC 3.60 L, Hgb 9.5 L, Hct 31.2 L, MCV 86.7, MCH 26.4 L, MCHC 30.4 L, RDW Std Deviation 44.2 H, RDW Coeff of Aleena 13.9, Plt Count 416, MPV 8.4, Immature Gran % (Auto) 0.700, Neut % (Auto) 76.6 H, Lymph % (Auto) 10.3 L, [place] % (Auto) 10.9 H, Eos % (Auto) 1.2, Baso % (Auto) 0.3, Absolute Neuts (auto) 14.6 H, Absolute Lymphs (auto) 1.96, Nucleated RBC % 0, Differential Comment SCANNED, Sodium 134, Potassium 3.8, Chloride 100, Carbon Dioxide 23.0, Anion Gap 11, BUN 20 H, Creatinine 0.95, Estim Creat Clear Calc 42.57 L, Est GFR (MDRD) Non-Af 59 L, BUN/Creatinine Ratio 20.9 H, Glucose 103 H, Lactic Acid 1.9, Calcium 8.4 03/01/25 05:09: WBC 15.6 H, RBC 2.99 L, Hgb 7.9 L, Hct 25.7 L, MCV 86.0, MCH 26.4 L, MCHC 30.7 L, RDW Std Deviation 44.6 H, RDW Coeff of Aleena 14.0, Plt Count 380, MPV 8.7, Sodium 136, Potassium 3.7, Chloride 107, Carbon Dioxide 20.4 L, Anion Gap 9, BUN 17, Creatinine 0.67 L, Estim Creat Clear Calc 50.15, Est GFR (MDRD) Non-Af 87, BUN/Creatinine Ratio 25.8 H, Glucose 94, Calcium 7.5 L Radiography Diagnostic Testing: Radiology Impression Hip/Pelvis X-Ray 02/28/25 17:14 IMPRESSION: Soft tissue air adjacent to a right hip arthroplasty possibly representing infection. Additional findings above. Reading Location: [address] Physical Exam Const alert and no apparent distress HEENT head/scalp atraumatic and moist oral mucous membranes Resp normal respiratory effort and no retractions Extremity Extremity Narrative: right hip with purulence expressed from opening distally. Neuro Sensorium / Orientation: awake and alert Assessment & Plan Assessment/Plan (1) Surgical site infection: PLAN: Plan Right hip surgical site infection * Orthopedic surgery consulted. * Recent right hip endoprosthesis placement done on 01/[address] Tijerina * Presented with erythema and drainage at surgical incision site of right hip. X-ray showed soft tissue air adjacent to right hip arthroplasty possibly representing infection. * Will treat with IV vancomycin and Zosyn for now. Follow-up blood cultures and cultures drawn from wound drainage. * Plan for irrigation and debridement, but may require revision of femoral stem depending on surgical findings. * Consult ID for long-term abx recs. Recent right femoral neck fracture s/p right hip endoprosthesis placement * PT/OT/case management consulted. Patient has been residing at SNF ([facility]) since discharge from here on 01/25. Suspect she will be fine to return there on discharge. Appreciate therapy recommendations. Anemia: * Hg 7.9. will monitor. DW Dr. Tijerina, he'd like the Hg >8 for the upcoming surgery. Will type and cross 2 units, and transfuse 1 unit and monitor. Chronic medical conditions: ? Parkinson's disease: Stable. Continue home Sinemet. ? History of CAD with stenting, hyperlipidemia: Mildly hypotensive on admit to the 100s over 50s, improved with fluid resuscitation. Continue home aspirin and statin. ? Chronic iron deficiency anemia: Hemoglobin 9.5 on admit, was stable around 8.5-9 postoperatively in mid January. Follow-up a.m. CBC. Continue home iron supplement. ? Overactive bladder: Continue home mirabegron. ? Anxiety/depression/fibromyalgia: Continue home duloxetine. DVT prophylaxis: Lovenox CODE STATUS: DNR-CCA, DNI Expected disposition: Likely back to SNF, TBD Charges/Coding Visit Charges Inpatient E&M: 04456 Subs Hosp L2
--- NOTE | 2025-03-01 09:13 | CON.PCM.OR_ITS ---
HPI Consult Data Date of Consult: 03/01/25 HPI Narrative Reason for Consultation: Right hip periprosthetic joint infection HPI Narrative: DAGOBERTO COHN, is a 84 F who presents with right hip drainage. Patient is a former patient of mine who had a hip hemiarthroplasty on January 20, 2025. Subsequently she was cared for at a intermediate facility. She was doing well at her 2-week visit. She also had a right metacarpal fracture which has healed well. She presented the office yesterday with drainage which started to occur over the weekend with increased pain was started to occur over the weekend. She has 2 sites of active drainage and increased pain and difficulty with weightbearing since this has occurred. She was instructed to come to the hospital. Staff to perform similar cultures in office and showing Staph aureus. Patient was admitted to the hospital overnight for medical stabilization. She was started on vancomycin and Zosyn therapies. She denies any right hand pain PFSH Medical History (Updated 03/01/25 @ 12:[address] Braulio Tijerina MD) Nocturia Urge incontinence Overactive bladder Former tobacco use Depression Hypertension Fall CHI (closed head injury) Presence of stent in coronary artery (~12/22/21) Atherosclerotic heart disease of [place] coronary artery without angina pectoris ST elevation myocardial infarction (STEMI) of inferior wall (~12/22/21) Essential (primary) hypertension Parkinsons disease Urgency of urination Gout Cardiogenic shock Non-rheumatic mitral regurgitation Non-rheumatic tricuspid valve insufficiency Pulmonary hypertension Emphysema with chronic bronchitis Fibromyalgia Hyperlipidemia CAD (coronary artery disease) Bladder spasms Edema, lower extremity Myocardial infarction Home Medications ?Medication ?Instructions ?Recorded ?Last Taken ?Type acetaminophen 325 mg capsule 650 mg PO Q8H PRN fever o r pain 05/01/23 04/29/23 History atorvastatin 40 mg tablet 40 mg PO QHS hYPERLIPIDEMIA 05/01/23 04/30/23 History polyethylene glycol 3350 17 17 g PO DAILY PRN constipa tion 05/01/23 05/01/23 History gram/dose oral powder (ClearLax) psyllium husk 3.4 gram/5.4 gram 1 tbsp PO DAILY PRN CO NSTIPATION 05/01/23 04/30/23 History oral powder (Stacie-Mucil) alendronate 70 mg tablet 70 mg PO QWEEK osteoporosis 09/27/24 Unknown History carbidopa 25 mg-levodopa 100 mg 2 tab PO DAILY kelsey on 09/27/24 Unknown History tablet celecoxib 200 mg capsule 200 mg PO QDAY PAIN 09/27/24 Unknown History duloxetine 20 mg capsule,delayed 20 mg PO QDAY DEPRESS ION 09/27/24 Unknown History release tramadol 50 mg tablet 50 mg PO TID pain 09/27/24 U nknown History guaifenesin 100 mg/5 mL oral liquid 200 mg PO Q4H PRN cough 12/28/24 Unknown History melatonin 3 mg capsule 3 mg PO HS sleep 12/28/24 Un known History simethicone 125 mg chewable tablet 125 mg PO BID PRN a bdominal 12/28/24 Unknown History (Mylanta Gas) distention ascorbic acid (vitamin C) 500 mg 500 mg PO BID supplem ent 01/20/25 Unknown History capsule carbidopa 25 mg-levodopa 100 mg 1.5 tab PO TID kelsey on 01/20/25 Unknown History tablet (Dhivy) mirabegron 50 mg tablet,extended 50 mg PO DAILY bladde r 01/20/25 Unknown History release 24 hr (Myrbetriq) acetaminophen 500 mg tablet 500 mg PO Q8H PRN pain 09/04 Unknown History (Tylenol Extra Strength) ferrous sulfate 325 mg (65 mg 325 mg PO BID ANEMIA 09/04 Unknown History iron) tablet (FeroSul) acetaminophen 500 mg capsule 500 mg PO TID PAIN Unknown History aluminum-mag hydroxide-simethicone 10 ml PO Q4H PRN in digestion, GAS, 02/28/25 Unknown History 400 mg-400 mg-40 mg/5 mL oral susp HEARTBURN, NAUSEA (Advanced Antacid-[place]) aspirin 81 mg tablet,delayed 81 mg PO BREAKFAST ANTICO AGULANT 02/28/25 Unknown History release cephalexin 500 mg capsule 500 mg PO TID INFECTION 02/11 12/05 Unknown History ceramides 1,3,6-II (CeraVe Daily 1 applic topical LAURO Y DRY SKIN 02/28/25 Unknown History Moisturizing lotion) cholecalciferol (vitamin D3) 50 50 mcg PO DAILY SUPPLE MENT 02/28/25 Unknown History mcg (2,000 unit) capsule (D3-1999) cyanocobalamin (vitamin B-12) 500 500 mcg PO DAILY ANE SORAYA 02/28/25 Unknown History mcg tablet (Vitamin B-12) sennosides 8.6 mg tablet (Laxative 8.6 mg PO BID CONST IPATION 02/28/25 Unknown History (sennosides)) tramadol 50 mg tablet 50 mg PO DAILY PRN pain 02/11 12/05 Unknown History Allergy/AdvReac Type Severity Reaction Status Date / Time oxycodone (From Percocet) Allergy Severe Hives Verified 02/28/25 16:15 Family History Father Heart disease Surgical History (Updated 03/01/25 @ 12:[address] Braulio Tijerina MD) History 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 alcohol intake: current alcohol intake frequency: holidays/special occasions only substance use type: does not use caffeine: Yes Type: coffee Number of servings: 2 ROS ROS Narrative Patient reports malaise. Otherwise 14 point systems is negative Vital Signs Vital Signs Vital Signs: 02/28/25 16:16 02/28/25 16:18 02/28/25 17:18 Temperature 98.5 F 98.5 F 98.1 F Temperature Source Oral Oral Oral Pulse Rate 79 88 88 Pulse Strength Respiratory Rate 18 18 16 Respiratory Effort Respiratory Depth Respiratory Pattern Blood Pressure 102/49 L 109/56 L 116/43 L Blood Pressure Mean 66 73 67 Blood Pressure Source Blood Pressure Position Blood Pressure Location Pulse Ox 100 100 94 Oxygen Delivery Method Room Air Room Air Room Air 02/28/25 18:00 02/28/25 18:57 02/28/25 20:02 Temperature 98.2 F 98.2 F 98.2 F Temperature Source Oral Oral Pulse Rate 89 89 88 Pulse Strength Respiratory Rate 14 14 22 H Respiratory Effort Respiratory Depth Respiratory Pattern Blood Pressure 112/43 L 112/43 L 115/40 L Blood Pressure Mean 66 66 65 Blood Pressure Source Monitor Blood Pressure Position Semi-Fowlers Blood Pressure Location Right Arm Pulse Ox 97 97 99 Oxygen Delivery Method Room Air Room Air 02/28/25 22:00 02/28/25 23:09 02/28/25 23:33 Temperature 98.5 F Temperature Source Oral Pulse Rate 93 Pulse Strength Normal (2+) Respiratory Rate 16 Respiratory Effort Normal Non-Labored Respiratory Depth Normal Respiratory Pattern Normal Blood Pressure 116/67 Blood Pressure Mean 83 Blood Pressure Source Monitor Blood Pressure Position Semi-Fowlers Blood Pressure Location Right Arm Pulse Ox 99 Oxygen Delivery Method Room Air 03/01/25 05:11 03/01/25 07:55 03/01/25 08:37 Temperature 98.3 F 99.0 F Temperature Source Oral Temporal Pulse Rate 100 83 Pulse Strength Respiratory Rate 16 18 Respiratory Effort Respiratory Depth Respiratory Pattern Blood Pressure 114/46 L 105/46 L Blood Pressure Mean 68 65 Blood Pressure Source Monitor Monitor Blood Pressure Position Semi-Fowlers Semi-Fowlers Blood Pressure Location Left Arm Right Arm Pulse Ox 98 99 Oxygen Delivery Method Room Air Room Air Room Air Weight Weight: 162 lb 14.746 oz Body Mass Index (BMI) 29.7 Physical Exam Const alert and oriented x3 General Appearance: cooperative HEENT normocephalic Eyes PERRL Neck no JVD Resp normal respiratory effort Cardio Cardio Narrative: Regular pulse rate GI non-distended Extremity Extremity Narrative: Right extremity: Has some moderate swelling incision has decreased erythema from the initial office visit however there are 2 sites of active drainage with gross purulence on the overlying dressing. Neurovascular intact distally. Skin Skin Narrative: Patient has a bluish hue to her skin. Neuro moves all extremities Psych affect normal Medical Records Data Attestation: I reviewed the patient's medical records Lab / Micro Data Attestation: I reviewed the patient's lab results. 03/01/25 05:09 03/01/25 05:09 Labs: Laboratory Results - last 24 hr 02/28/25 16:50: WBC 19.1 H, RBC 3.60 L, Hgb 9.5 L, Hct 31.2 L, MCV 86.7, MCH 26.4 L, MCHC 30.4 L, RDW Std Deviation 44.2 H, RDW Coeff of Aleena 13.9, Plt Count 416, MPV 8.4, Immature Gran % (Auto) 0.700, Neut % (Auto) 76.6 H, Lymph % (Auto) 10.3 L, [place] % (Auto) 10.9 H, Eos % (Auto) 1.2, Baso % (Auto) 0.3, Absolute Neuts (auto) 14.6 H, Absolute Lymphs (auto) 1.96, Nucleated RBC % 0, Differential Comment SCANNED, Sodium 134, Potassium 3.8, Chloride 100, Carbon Dioxide 23.0, Anion Gap 11, BUN 20 H, Creatinine 0.95, Estim Creat Clear Calc 42.57 L, Est GFR (MDRD) Non-Af 59 L, BUN/Creatinine Ratio 20.9 H, Glucose 103 H, Lactic Acid 1.9, Calcium 8.4 03/01/25 05:09: WBC 15.6 H, RBC 2.99 L, Hgb 7.9 L, Hct 25.7 L, MCV 86.0, MCH 26.4 L, MCHC 30.7 L, RDW Std Deviation 44.6 H, RDW Coeff of Aleena 14.0, Plt Count 380, MPV 8.7, Sodium 136, Potassium 3.7, Chloride 107, Carbon Dioxide 20.4 L, Anion Gap 9, BUN 17, Creatinine 0.67 L, Estim Creat Clear Calc 50.15, Est GFR (MDRD) Non-Af 87, BUN/Creatinine Ratio 25.8 H, Glucose 94, Calcium 7.5 L Imaging Radiology Impression Hip/Pelvis X-Ray 02/28/25 17:14 IMPRESSION: Soft tissue air adjacent to a right hip arthroplasty possibly representing infection. Additional findings above. Reading Location: [address] X-rays were reviewed. Findings on review. Assessment & Plan Assessment/Plan (1) Infection and inflammatory reaction due to internal right hip prosthesis, initial encounter: PLAN: Natural history of the disease process and treatment options discussed the patient. Patient does have draining sinus which meets MSIS major criteria for periprosthetic joint infection. Considering the acute postoperative nature of this as well as patient's age I did recommend a 1 stage surgery for irrigation debridement. If the femoral stem is loose we will remove the femoral stem and revise it. Remember going to remove the femoral head interchangeable provide and revise that. Risks and benefits of the procedure were discussed with the patient including but not limited to blood loss, DVTs, PEs, neurovascular medical infection, risk of anesthesia bleeding loss of life. Patient understands she may have further infection have concerns of possible contamination associated with ulcers taken in the office. Will take deep cultures during the surgery to be more reliable for long-term treatment however patient has been started on antibiotics. Which could compromise ability to get accurate results. Patient demonstrates understanding of the plan. Patient will be n.p.o. after midnight. Will plan on moving forward with surgery. She is currently on antibiotics we will continue scheduled antibiotics until further cultures were obtained. Would recommend consulting infectious disease for this patient. (2) Anemia: PLAN: Patient's hemoglobin is 7.9. This was discussed with medicine team. I did feel the patient was infection recommend to keep a close eye on this and transfuse as needed. Would like a minimum hemoglobin of 8 to proceed with surgery. Would also recommend during or after surgery if necessary.
[2025-03-01] MEDS: Aspirin E.C. 81 MG Tablet PO (10:09)
[2025-03-01] MEDS: Cholecalciferol (VIT D3) 25 MCG TABLET (1,000 UNITS) 50 MCG PO (10:10)
[2025-03-01] MEDS: Senna Tablet 1 TABLET PO ×2 (10:10→20:31)
--- NOTE | 2025-03-01 11:00 | CASEMGMT ---
AUGUSTIN HOBBS NOTE: RN CM to room. Pt resting in bed. Introduced pt to self and role. Pt lives @ [facility] and would like to return when discharged from [facility]. Pt declines wanting list of other SNF's or LTC facilities, stating she has lived there for about 2 years and likes it there. Frida, discharge executive administrative assistant, made aware. Christo GOREN AUGUSTIN HOBBS
--- NOTE | 2025-03-01 11:19 | CASEMGMT ---
Discharge Planning Updates sent via [facility] to [facility] with not asking pt will need precert to return and if she can return while it's pending. Awaiting response. Frida Santamaria DC Planning Asst.
--- NOTE | 2025-03-01 14:46 | CHAPLAIN ---
Type of Pastoral Visit _x__ Initial Visit ___ Follow-up Visit ___ On-call Visit ___ General Patient Visit ___ Spiritual Assessment ___ Family Conference ___ Bereavement ___ Rapid Response ___ Code Blue ___ Other (describe below) Pastoral Care Referral From _x__ Patient ___ Family ___ Nurse ___ Physician ___ Municipal Clerk ___ Lift Electrician ___ Other (describe below) Sacrament/Intervention _x__ Active listening ___ Anointing ___ Scientologist ___ Bereavement ___ Communion _x__ Ashley exploration ___ ___ Life review _x__ Prayer ___ Reconciliation ___ Sacrament of Sick _x__ Supportive presence ___ Wedding ___ Other (describe below) Pastoral Comments patient reviews what has happened and reason for surgery tomorrow; pt places blame on herself for not listening to God; pt has concerns for surgery and recovery and seeks prayer support; pt is talkative and admits that 'I have family but they are pretty busy with their lives
[2025-03-02] VITALS (15 sets, daily range): BP systolic 126–163; BP diastolic 54–115; PULSE 75–99; RESP 12–18; TEMP 36.6–37; O2SAT 98–100; BMI 29.7
[2025-03-02] MEDS: Piperacil/Tazobactam 3.375 GM in 0.9% Normal Saline (50mL MB+) 50 ML IV ×3 (05:00→22:23)
[2025-03-02 05:37] LABS: Hematocrit 29.3 % (37-47); Hemoglobin 9.1 g/dL (12.0-15.0); Immature Granulocytes Count 0.120 X10^3/uL (0.0-0.0); Mean Corp Hgb Conc 31.1 g/dL (32-36); Mean Corpuscular Volume 84.7 fL (81-99); Mean Platelet Vol. 8.2 fl (6.2-12.0); NRBC Flagged by Analyzer 0 % (0-5); Platelet Count 393 K/mm3 (150-450); RBC Distribution Width CV 14.2 % (11.6-14.6); RBC Distribution Width SD 43.6 fl (35.1-43.9); Red Blood Count 3.46 M/mm3 (4.2-5.4); White Blood Count 12.8 K/mm3 (4.4-11.0)
[2025-03-02 06:21] LABS: Vancomycin, Trough Level 11.0 ug/mL (5.0-15.0)
[2025-03-02 06:23] LABS: Anion Gap 8 (5-15); BUN 16 mg/dL (4-19); BUN/Creat Ratio 22.7 RATIO (10-20); Calcium,Total 7.9 mg/dL (7.6-11.0); Carbon Dioxide 22.6 mmol/L (21.0-32.0); Chloride 106 mmol/L (98-108); Estimated Creatinine Clearance 50.15 ml/min (50-250); Glucose 99 mg/dL (70-99); Potassium 3.9 mmol/L (3.3-5.1)
--- NOTE | 2025-03-02 06:38 | PCM.RX.CS ---
Consult Antibiotic Management Pharmacy has been consulted to manage selected antibiotic: Vancomycin Type of Intervention Type of Consult: Follow-up Labs Labs: Sodium 137 mmol/L (133-145) 03/02/25 05:27 Potassium 3.9 mmol/L (3.3-5.1) 03/02/25 05:27 Chloride 106 mmol/L (98-108) 03/02/25 05:27 Carbon Dioxide 22.6 mmol/L (21.0-32.0) 03/02/25 05:27 Anion Gap 8 (5-15) 03/02/25 05:27 BUN 16 mg/dL (4-19) 03/02/25 05:27 Creatinine 0.69 mg/dL (0.70-1.20) L 03/02/25 05:27 Est GFR (MDRD) Non-Af 86 (>60) 03/02/25 05:27 BUN/Creatinine Ratio 22.7 RATIO (10-20) H 03/02/25 05:27 Glucose 99 mg/dL (70-99) 03/02/25 05:27 Vancomycin Trough 11.0 ug/mL (5.0-15.0) 03/02/25 05:27 Dosing Weight Weight used for dosin kg Estimated Creatinine Clearance Estimated Creatinine Clearance: 50 Goal Trough Goal Trough: 15-20 mcg/mL Pharmacy Plan for Drug Dosing Pharmacy Plan for Drug Dosing: Vancomycin trough level of 11.0, drawn 11.5hrs post-dose, was below the target range of 15-20. Will increase dose to 750mg q12h, and will draw another trough prior to fourth dose of the new regimen. Pharmacy Service will continue to monitor and adjust dosing as required. Follow-Up Labs Follow-Up Labs: Trough: Vancomycin Date/Time Labs Ordered Labs to be done on [date and time ordered]: 03/03/25 @1800
--- NOTE | 2025-03-02 07:08 | PCM.PN.HOSP ---
Reason for Visit Chief Complaint: Right hip wound infection Subjective Subjective Denies pain. Objective Data Objective Data Vital Signs: Vital Signs Temp Pulse Resp BP Pulse Ox O2 Del Method 37.2 C 99 16 138/59 H 99 Room Air 03/01/25 21:15 03/01/25 21:15 03/01/25 21:15 03/01/25 21:15 03/01/25 21:15 03/01/25 21:15 Oxygen Delivery Method Room Air Weight: 73.9 kg Body Mass Index (BMI) 29.7 Intake & Output: Intake and Output for Last 24 Hours 02/28/25 03/01/25 03/02/25 23:59 23:59 23:59 Intake Total 1590 / 1740 2720 / 2870 200 / 200 Output Total 680 / 1030 350 / 350 Balance 1590 / 1640 2040 / 1840 -150 / -150 Lab / Micro Data 03/02/25 05:27 03/02/25 05:27 Labs: Laboratory Results - last 24 hr 03/01/25 14:35: Blood Type B POSITIVE, Antibody Screen NEGATIVE, Crossmatch See Detail 03/02/25 05:27: WBC 12.8 H, RBC 3.46 L, Hgb 9.1 L, Hct 29.3 L, MCV 84.7, MCH 26.3 L, MCHC 31.1 L, RDW Std Deviation 43.6, RDW Coeff of Aleena 14.2, Plt Count 393, MPV 8.2, Immature Gran % (Auto) 0.900, Neut % (Auto) 76.7 H, Lymph % (Auto) 10.8 L, [place] % (Auto) 8.3, Eos % (Auto) 2.8, Baso % (Auto) 0.5, Absolute Neuts (auto) 9.8 H, Absolute Lymphs (auto) 1.38, Nucleated RBC % 0, Sodium 137, Potassium 3.9, Chloride 106, Carbon Dioxide 22.6, Anion Gap 8, BUN 16, Creatinine 0.69 L, Estim Creat Clear Calc 50.15, Est GFR (MDRD) Non-Af 86, BUN/Creatinine Ratio 22.7 H, Glucose 99, Calcium 7.9, Vancomycin Trough 11.0 Physical Exam Const alert and no apparent distress HEENT head/scalp atraumatic and moist oral mucous membranes Neuro Sensorium / Orientation: awake and alert Psych affect normal Assessment & Plan Assessment/Plan (1) Surgical site infection: PLAN: Plan Right hip surgical site infection Orthopedic surgery consulted. Recent right hip endoprosthesis placement done on 01/[address] Tijerina Presented with erythema and drainage at surgical incision site of right hip. X-ray showed soft tissue air adjacent to right hip arthroplasty possibly representing infection. Will treat with IV vancomycin and Zosyn for now. Follow-up blood cultures and cultures drawn from wound drainage. Plan for irrigation and debridement, but may require revision of femoral stem depending on surgical findings. Consult ID for long-term abx recs. Wound culture thus far showing MRSA. Recent right femoral neck fracture s/p right hip endoprosthesis placement PT/OT/case management consulted. Patient has been residing at [facility] ([facility]) since discharge from here on 01/25. Suspect she will be fine to return there on discharge. Appreciate therapy recommendations. Anemia: Hg 7.9. improved to 9.1 after transfusion. 1 unit on hold. Chronic medical conditions: ? Parkinson's disease: Stable. Continue home Sinemet. ? History of CAD with stenting, hyperlipidemia: Mildly hypotensive on admit to the 100s over 50s, improved with fluid resuscitation. Continue home aspirin and statin. ? Chronic iron deficiency anemia: Hemoglobin 9.5 on admit, was stable around 8.5-9 postoperatively in mid January. Follow-up a.m. CBC. Continue home iron supplement. ? Overactive bladder: Continue home mirabegron. ? Anxiety/depression/fibromyalgia: Continue home duloxetine. DVT prophylaxis: Lovenox CODE STATUS: DNR-CCA, DNI Expected disposition: Likely back to [facility], [facility] Charges/Coding Visit Charges Inpatient E&M: 50605 Subs Hosp L1
[2025-03-02] MEDS: Vancomycin HCl 750 MG in 0.9% Normal Saline (250mL Bag) 250 ML 250 MG IV ×2 (07:28→20:55)
[2025-03-02] MEDS: Senna Tablet 1 TABLET PO ×2 (09:47→22:30)
--- NOTE | 2025-03-02 10:53 | CON.PCM.ID_ITS ---
Assessment & Plan Assessment/Plan (1) Infection and inflammatory reaction due to internal right hip prosthesis, initial encounter: PLAN: MRSA R hip infection s/p replacement 01/20/[address] Tijerina. On vanc/zosyn, OR planned. Bcx neg so far. Wbc improving. Will follow, thank you HPI Consult Data Date of Consult: 03/02/25 HPI Narrative Reason for Consultation: staph infection HPI Narrative: DAGOBERTO COHN, is a 84 F who presented from [facility] 02/28 with several days R hip pain, redness, swelling, and drainage. Had R hip replacement by Dr. Tijerina on 01/20/25. No fever or chills. Pain was mild. Admitted, started on vanc/zosyn, OR planned. Full ROS performed and neg except as noted above. [facility] Medical History MRSA (methicillin resistant staph aureus) culture positive Nocturia Urge incontinence Overactive bladder Former tobacco use Depression Hypertension Fall CHI (closed head injury) Presence of stent in coronary artery (~12/22/21) Atherosclerotic heart disease of [place] coronary artery without angina pectoris ST elevation myocardial infarction (STEMI) of inferior wall (~12/22/21) Essential (primary) hypertension Parkinsons disease Urgency of urination Gout Cardiogenic shock Non-rheumatic mitral regurgitation Non-rheumatic tricuspid valve insufficiency Pulmonary hypertension Emphysema with chronic bronchitis Fibromyalgia Hyperlipidemia CAD (coronary artery disease) Bladder spasms Edema, lower extremity Myocardial infarction Home Medications ?Medication ?Instructions ?Recorded ?Last Taken ?Type acetaminophen 325 mg capsule 650 mg PO Q8H PRN fever o r pain 05/01/23 04/29/23 History atorvastatin 40 mg tablet 40 mg PO QHS hYPERLIPIDEMIA 05/01/23 04/30/23 History polyethylene glycol 3350 17 17 g PO DAILY PRN constipa tion 05/01/23 05/01/23 History gram/dose oral powder (ClearLax) psyllium husk 3.4 gram/5.4 gram 1 tbsp PO DAILY PRN CO NSTIPATION 05/01/23 04/30/23 History oral powder (Stacie-Mucil) alendronate 70 mg tablet 70 mg PO QWEEK osteoporosis 09/27/24 Unknown History carbidopa 25 mg-levodopa 100 mg 2 tab PO DAILY kelsey on 09/27/24 Unknown History tablet celecoxib 200 mg capsule 200 mg PO QDAY PAIN 09/27/24 Unknown History duloxetine 20 mg capsule,delayed 20 mg PO QDAY DEPRESS ION 09/27/24 Unknown History release tramadol 50 mg tablet 50 mg PO TID pain 09/27/24 U nknown History guaifenesin 100 mg/5 mL oral liquid 200 mg PO Q4H PRN cough 12/28/24 Unknown History melatonin 3 mg capsule 3 mg PO HS sleep 12/28/24 Un known History simethicone 125 mg chewable tablet 125 mg PO BID PRN a bdominal 12/28/24 Unknown History (Mylanta Gas) distention ascorbic acid (vitamin C) 500 mg 500 mg PO BID supplem ent 01/20/25 Unknown History capsule carbidopa 25 mg-levodopa 100 mg 1.5 tab PO TID kelsey on 01/20/25 Unknown History tablet (Dhivy) mirabegron 50 mg tablet,extended 50 mg PO DAILY bladde r 01/20/25 Unknown History release 24 hr (Myrbetriq) acetaminophen 500 mg tablet 500 mg PO Q8H PRN pain 09/04 Unknown History (Tylenol Extra Strength) ferrous sulfate 325 mg (65 mg 325 mg PO BID ANEMIA 09/04 Unknown History iron) tablet (FeroSul) acetaminophen 500 mg capsule 500 mg PO TID PAIN Unknown History aluminum-mag hydroxide-simethicone 10 ml PO Q4H PRN in digestion, GAS, 02/28/25 Unknown History 400 mg-400 mg-40 mg/5 mL oral susp HEARTBURN, NAUSEA (Advanced Antacid-[place]) aspirin 81 mg tablet,delayed 81 mg PO BREAKFAST ANTICO AGULANT 02/28/25 Unknown History release cephalexin 500 mg capsule 500 mg PO TID INFECTION 02/11 12/05 Unknown History ceramides 1,3,6-II (CeraVe Daily 1 applic topical LAURO Y DRY SKIN 02/28/25 Unknown History Moisturizing lotion) cholecalciferol (vitamin D3) 50 50 mcg PO DAILY SUPPLE MENT 02/28/25 Unknown History mcg (2,000 unit) capsule (D3-2000) cyanocobalamin (vitamin B-12) 500 500 mcg PO DAILY ANE SORAYA 02/28/25 Unknown History mcg tablet (Vitamin B-12) sennosides 8.6 mg tablet (Laxative 8.6 mg PO BID CONST IPATION 02/28/25 Unknown History (sennosides)) tramadol 50 mg tablet 50 mg PO DAILY PRN pain 02/11 12/05 Unknown History Allergy/AdvReac Type Severity Reaction Status Date / Time oxycodone (From Percocet) Allergy Severe Hives Verified 02/28/25 16:15 Family History Father Heart disease Surgical History (Updated 03/01/25 @ 12:[address] Braulio Tijerina MD) History 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 alcohol intake: current alcohol intake frequency: holidays/special occasions only substance use type: does not use caffeine: Yes Type: coffee Number of servings: 2 Physical Exam Const alert, oriented x3 and no apparent distress General Appearance: cooperative HEENT normocephalic and head/scalp atraumatic Eyes PERRL and EOMs intact bilaterally Neck supple and No nodes Resp normal air movement and clear to auscultation bilaterally Cardio regular rate, regular rhythm and no murmurs GI soft to palpation, non-tender and non-distended Extremity General Extremity: Negative for edema Skin Skin Narrative: R hip redness, swelling, some drainage Neuro CN's II-XII intact bilaterally Lab / Micro Data Attestation: I reviewed the patient's lab results. 03/02/25 05:27 03/02/25 05:27 Labs: Laboratory Results - last 24 hr 03/01/25 14:35: Blood Type B POSITIVE, Antibody Screen NEGATIVE, Crossmatch See Detail 03/02/25 05:27: WBC 12.8 H, RBC 3.46 L, Hgb 9.1 L, Hct 29.3 L, MCV 84.7, MCH 26.3 L, MCHC 31.1 L, RDW Std Deviation 43.6, RDW Coeff of Aleena 14.2, Plt Count 393, MPV 8.2, Immature Gran % (Auto) 0.900, Neut % (Auto) 76.7 H, Lymph % (Auto) 10.8 L, [place] % (Auto) 8.3, Eos % (Auto) 2.8, Baso % (Auto) 0.5, Absolute Neuts (auto) 9.8 H, Absolute Lymphs (auto) 1.38, Nucleated RBC % 0, Sodium 137, Potassium 3.9, Chloride 106, Carbon Dioxide 22.6, Anion Gap 8, BUN 16, C reatinine 0.69 L, Estim Creat Clear Calc 50.15, Est GFR (MDRD) Non-Af 86, B UN/Creatinine Ratio 22.7 H, Glucose 99, Calcium 7.9, Vancomycin Trough 11.0
--- NOTE | 2025-03-02 11:42 | CASEMGMT ---
Addendum entered by Frida Santamaria 03/02/25 14:14: Response from [facility] wasn't completely applicable to question being asked. This check writer salesperson will ask in another manner when updates are sent next. Frida Santamaria DC Planning asst. Original Note: Discharge Planning Updates sent via [facility] to Grace Richards with note asking again if pt will need precert and if so, can she return while it's pending. Awaiting response. Frida Santamaria DC Planning Asst.
--- NOTE | 2025-03-02 15:07 | PCM.PRE.AN2 ---
ASA Classification* ASA Classification ASA Classification: 3 Assessment & Plan Anesthesia* Anesthesia Assessment Anesthesia Assessment: Discussed sedation and/or anesthesia options, risks, benefits, and alternatives with patient/parents/legal guardian/POA. Questions invited. The patient/parents/legal guardian/POA seems to understand and agrees to proceed with anesthesia plan. Reviewed the physical assessment, medical history, allergy history and patient home medications list prior to surgery/procedure/anesthetic and documented any changes. Performed airway and anesthesia risk assessments. Anesthesia Type Anesthesia Type: General Anesthesia Focused Assessment* Temperature: 98.2 F Pulse Rate: 87 Blood Pressure: 158/79 Respiratory Rate: 16 Pulse Ox: 100 Airway Assessment Mouth opens: >3 cm Mallampati Score: II Labs Anesthesia Preop lab: CBC WBC, (4.4-11.0) 12.8 K/mm3 H Today, 05:27 RBC, (4.2-5.4) 3.46 M/mm3 L Today, 05:27 Hgb, (12.0-15.0) 9.1 g/dL L Today, 05:27 Hct, (37-47) 29.3 % L Today, 05:27 Plt Count, (150-450) 393 K/mm3 Today, 05:27 CHEMISTRY Potassium, (3.3-5.1) 3.9 mmol/L Today, 05:27 Sodium, (133-145) 137 mmol/L Today, 05:27 Phosphorus, (2.7-4.5) 2.4 mg/dL L 01/20/25, 02:05 BUN, (4-19) 16 mg/dL Today, 05:27 Creatinine, (0.70-1.20) 0.69 mg/dL L Today, 05:27 Glucose, (70-99) 99 mg/dL Today, 05:27 POC Glucose, (74-106) 99 mg/dL 02/01/23, 14:26 TSH, (0.300-4.200) 1.900 uIU/mL 01/20/25, 02:05 COAG PT, (11.7-14.9) 16.1 SECONDS H 05/01/23, 14:15 Pre-Assessment Diagnosis/Proposed Procedure Planned Operative Procedure(s): I&D right hip prosthetic. Anesthesia History Anesthesia History - chain maker machine: Anesthesia History - chain maker machine Hx Hospitalization Any Problems With Anesthesia No 03/01/25 05:12 Cholinesterase deficiency No 03/01/25 05:12 You/Your Family Experience No 03/01/25 05:12 fever (hyperthermia) with Relationship Recent Exposure to Contagious No 03/01/25 05:12 Disease Does patient have nerve No 03/01/25 05:12 stimulator Patient instructed to have No 03/01/25 05:12 device shut off --Does patient have Pacemaker No 03/02/25 12:58 or ICD? When Was Last Pacemaker Check QUESTION #4 FULL TEXT: You/Your Family Experience fever (hyperthermia) with Anesthesia Last Oral Intake Last Oral intake: Last Oral Intake NPO since 00:00 03/02/25 12:58 Meds taken in AM with sips of Yes 03/02/25 12:58 water? Meds patient instructed to see mar 03/02/25 12:58 take am of surgery PONV PONV - chain maker machine: PONV - chain maker machine Female HX of Motion Sickness HX of N/V After Surgery Non-Smoker Duration of Surgery greater than 60 minutes Number of Risk Factors PONV Score Height & Weight Height & Weight: Anesthesia: Height & Weight Height 5 ft 2 in 03/02/25 12:58 Weight: 73.9 kg 03/02/25 12:58 Body Mass Index (BMI) 29.7 03/02/25 12:58 Respiratory Assessment Respiratory Assessment - chain maker machine: Respiratory Tract Infection Hx - chain maker machine Hx Respiratory Tract Infection No 03/01/25 05:12 STOP Sleep Apnea STOP Sleep Apnea - chain maker machine: STOP Sleep Apnea - chain maker machine Hx Hypertension Yes 03/02/25 11:30 Hx Sleep Apnea No 02/28/25 19:47 CPAP BIPAP Do you snore loudly (louder No 02/28/25 19:47 than talking or can be heard Do you often feel tired/ Yes 02/28/25 19:47 fatigued/ sleepy during daytime? Has anyone observed you stop No 02/28/25 19:47 breathing during sleep? STOP Results Positive 02/28/25 19:47 QUESTION #5 FULL TEXT : Do you snore loudly (louder than talking or can be heard through closed doors)? 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 Specify any problems Hx of Preganancy in last 3 No 02/28/25 19:47 Months Nurse Filling Out Transfusion CSCHLATTE 02/28/25 19:47 & Questions: Date: 02/28/25 02/28/25 19:47 Time: 19:49 02/28/25 19:47 Patient unable to answer at this time (ie. confused, unrespo /Reproduction History /Reproductive History - chain maker machine: /Reproductive Hx- chain maker machine Hx Now No 03/01/25 05:12 Gestational Age (in weeks): EDC: Hx Hx Para Hx Section SAB No 03/01/25 05:12 Does the father of the baby or his family experience fever w Father of the baby Malignant Hypertension history comment Active Medications Active Medications: Current Medications Generic Name Dose Route Start Last Admin Trade Name Freq PRN Reason Stop Dose Admin Acetaminophen 650 mg 02/28/25 19:43 03/01/25 20:37 Acetaminophen 325 Mg Tablet PO 650 mg Q6H PRN PRN Administration Pain 1-10 Or Fever>100.7 Ascorbic Acid 500 mg 02/28/25 22:00 03/02/25 09:58 Ascorbic Acid 500 Mg Tablet PO Not Given BID MARTY Aspirin 81 mg 03/01/25 08:00 03/02/25 09:42 Aspirin E.C. 81 Mg Tablet PO Not Given BREAKFAST MARTY Atorvastatin Calcium 40 mg 02/28/25 22:00 03/01/25 20:32 Atorvastatin Calcium 40 Mg Tablet PO 40 mg QHS MARTY Administration Carbidopa/Levodopa 1.5 tablet 02/28/25 22:00 03/02/25 13:49 Carbidopa/Levodopa 25/100 Tablet PO Not Given TID MARTY Celecoxib 200 mg 03/01/25 08:00 03/02/25 09:51 Celecoxib 200 Mg Capsule PO Not Given DAILYCM MARTY Cholecalciferol 50 mcg 03/01/25 10:00 03/02/25 09:59 Cholecalciferol (Vit D3) 25 Mcg Tablet (1,000 Units) PO Not Given DAILY MARTY Cyanocobalamin 500 mcg 03/01/25 10:00 03/02/25 09:58 Cyanocobalamin 500 Mcg Tablet PO Not Given DAILY MARTY Duloxetine HCl 20 mg 03/01/25 10:00 03/02/25 09:48 Duloxetine Hcl 20 Mg Capsule PO 20 mg DAILY MARTY Administration Enoxaparin Sodium 40 mg 03/01/25 10:00 03/02/25 09:42 Enoxaparin 40 Mg/0.4 Ml Syringe SC Not Given DAILY MARTY Ferrous Sulfate 325 mg 03/01/25 12:00 03/02/25 11:39 Ferrous Sulfate 325 Mg Tablet PO Not Given DAILY@1200 [facility] Vancomycin IV-PHARMACY TO DOSE 500 mls @ 250 mls/hr 02/28/25 19:43 1 each/ Sodium Chloride IV X1 PRN Rx to Dose Protocol Piperacillin Sod/Tazobactam 50 mls @ 12.5 mls/hr 02/28/25 23:00 03/02/25 13:48 Sod 3.375 gm/ Sodium Chloride IV 12.5 mls/hr Q8 MARTY Administration Sodium Chloride 250 mls @ 15 mls/hr 02/28/25 19:47 IV .[id number] PRN Saline Flush Sodium Chloride 250 mls @ 15 mls/hr 02/28/25 19:47 IV .[id number] PRN Additional IVPB Infusion Vancomycin HCl 750 mg/ Sodium 265 mls @ 250 mls/hr 03/02/25 06:30 03/02/25 09:55 Chloride IV Infused Q12H MARTY Infusion Sodium Chloride 1,000 mls @ 15 mls/hr 03/02/25 15:05 IV .Q48H MARTY Melatonin 3 mg 02/28/25 19:43 Melatonin 3 Mg Tablet PO QHS PRN PRN INSOMNIA Ondansetron HCl 4 mg 02/28/25 19:43 03/01/25 20:39 Ondansetron 4 Mg/2 Ml Vial IV 4 mg Q8H PRN PRN Administration NAUSEA/VOMITING Polyethylene Glycol 17 gm 02/28/25 22:17 Polyethylene Glycol 3350 17 Gm Packet PO DAILY PRN PRN constipation Senna 1 tablet 02/28/25 22:00 03/02/25 09:47 Senna Tablet PO 1 tablet BID MARTY Administration Simethicone 120 mg 02/28/25 22:19 Simethicone 80 Mg Chewable Tablet PO BID PRN PRN abdominal distention Sodium Chloride 10 - 40 ml 02/28/25 19:47 0.9% Saline Lock 10 Ml Syringe IV UD PRN SALINE FLUSH Vancomycin Protocol 1 lab 03/03/25 17:00 Vancomycin Trough/Random Due MC 03/03/25 19:00 DAILY MARTY PFSH Medical History MRSA (methicillin resistant staph aureus) culture positive Nocturia Urge incontinence Overactive bladder Former tobacco use Depression Hypertension Fall CHI (closed head injury) Presence of stent in coronary artery (~12/22/21) Atherosclerotic heart disease of [place] coronary artery without angina pectoris ST elevation myocardial infarction (STEMI) of inferior wall (~12/22/21) Essential (primary) hypertension Parkinsons disease Urgency of urination Gout Cardiogenic shock Non-rheumatic mitral regurgitation Non-rheumatic tricuspid valve insufficiency Pulmonary hypertension Emphysema with chronic bronchitis Fibromyalgia Hyperlipidemia CAD (coronary artery disease) Bladder spasms Edema, lower extremity Myocardial infarction Home Medications ?Medication ?Instructions ?Recorded ?Last Taken ?Type acetaminophen 325 mg capsule 650 mg PO Q8H PRN fever or pain 05/01/23 04/29/23 History atorvastatin 40 mg tablet 40 mg PO QHS hYPERLIPIDEMIA 05/01/23 04/30/23 History polyethylene glycol 3350 17 17 g PO DAILY PRN constipation 05/01/23 05/01/23 History gram/dose oral powder (ClearLax) psyllium husk 3.4 gram/5.4 gram 1 tbsp PO DAILY PRN CONSTIPATION 05/01/23 04/30/23 History oral powder (Stacie-Mucil) alendronate 70 mg tablet 70 mg PO QWEEK osteoporosis 09/27/24 Unknown History carbidopa 25 mg-levodopa 100 mg 2 tab PO DAILY parkinson 09/27/24 Unknown History tablet celecoxib 200 mg capsule 200 mg PO QDAY PAIN 09/27/24 Unknown History duloxetine 20 mg capsule,delayed 20 mg PO QDAY DEPRESSION 09/27/24 Unknown History release tramadol 50 mg tablet 50 mg PO TID pain 09/27/24 Unknown History guaifenesin 100 mg/5 mL oral liquid 200 mg PO Q4H PRN cough 12/28/24 Unknown History melatonin 3 mg capsule 3 mg PO HS sleep 12/28/24 Unknown History simethicone 125 mg chewable tablet 125 mg PO BID PRN abdominal 12/28/24 Unknown History (Mylanta Gas) distention ascorbic acid (vitamin C) 500 mg 500 mg PO BID supplement 01/20/25 Unknown History capsule carbidopa 25 mg-levodopa 100 mg 1.5 tab PO TID parkinson 01/20/25 Unknown History tablet (Dhivy) mirabegron 50 mg tablet,extended 50 mg PO DAILY bladder 01/20/25 Unknown History release 24 hr (Myrbetriq) acetaminophen 500 mg tablet 500 mg PO Q8H PRN pain 02/15/25 Unknown History (Tylenol Extra Strength) ferrous sulfate 325 mg (65 mg 325 mg PO BID ANEMIA 02/15/25 Unknown History iron) tablet (FeroSul) acetaminophen 500 mg capsule 500 mg PO TID PAIN 02/28/25 Unknown History aluminum-mag hydroxide-simethicone 10 ml PO Q4H PRN indigestion, GAS, 02/28/25 Unknown History 400 mg-400 mg-40 mg/5 mL oral susp HEARTBURN, NAUSEA (Advanced Antacid-[place]) aspirin 81 mg tablet,delayed 81 mg PO BREAKFAST ANTICOAGULANT 02/28/25 Unknown History release cephalexin 500 mg capsule 500 mg PO TID INFECTION 02/28/25 Unknown History ceramides 1,3,6-II (CeraVe Daily 1 applic topical DAILY DRY SKIN 02/28/25 Unknown History Moisturizing lotion) cholecalciferol (vitamin D3) 50 50 mcg PO DAILY SUPPLEMENT 02/28/25 Unknown History mcg (2,000 unit) capsule (D3-2000) cyanocobalamin (vitamin B-12) 500 500 mcg PO DAILY ANEMIA 02/28/25 Unknown History mcg tablet (Vitamin B-12) sennosides 8.6 mg tablet (Laxative 8.6 mg PO BID CONSTIPATION 02/28/25 Unknown History (sennosides)) tramadol 50 mg tablet 50 mg PO DAILY PRN pain 02/28/25 Unknown History Allergy/AdvReac Type Severity Reaction Status Date / Time oxycodone (From Percocet) Allergy Severe Hives Verified 03/02/25 15:00 Family History Father Heart disease Surgical History History 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 alcohol intake: current alcohol intake frequency: holidays/special occasions only substance use type: does not use caffeine: Yes Type: coffee Number of servings: 2 Review of Systems (Anesthesia) ROS Narrative System reviewed and no additional complaints, except as documented.
[2025-03-02] MEDS: 0.9% Normal Saline (1000mL) 1,000 ML 15 ML IV (15:08)
--- NOTE | 2025-03-02 16:50 | PN.ORTHO_ITS ---
Subjective Subjective Patient seen and examined in the preoperative area. Doing well today. Hemoglobin now 9.1. Family is at bedside all parties agree to proceed with surgery. Topical wound cultures did grow out MRSA. Objective Data Objective Data Vital Signs: Vital Signs Temp Pulse Resp BP Pulse Ox O2 Del Method 98.2 F 87 16 158/79 H 100 Room Air 03/02/25 15:09 03/02/25 15:09 03/02/25 15:09 03/02/25 15:09 03/02/25 15:09 03/02/25 13:34 Oxygen Delivery Method Room Air Weight: 162 lb 14.746 oz Body Mass Index (BMI) 29.7 Intake & Output: Intake and Output for Last 24 Hours 02/28/25 03/01/25 03/02/25 23:59 23:59 23:59 Intake Total 1590 / 1740 2720 / 2870 565 / 565 Output Total 680 / 1030 1150 / 1150 Balance 1590 / 1640 2040 / 1840 -585 / -585 Lab / Micro Data Attestation: I reviewed the patient's lab results. 03/02/25 05:27 03/02/25 05:27 Labs: Laboratory Results - last 24 hr 03/01/25 14:35: Blood Type B POSITIVE, Antibody Screen NEGATIVE, Crossmatch See Detail 03/02/25 05:27: WBC 12.8 H, RBC 3.46 L, Hgb 9.1 L, Hct 29.3 L, MCV 84.7, MCH 26.3 L, MCHC 31.1 L, RDW Std Deviation 43.6, RDW Coeff of Aleena 14.2, Plt Count 393, MPV 8.2, Immature Gran % (Auto) 0.900, Neut % (Auto) 76.7 H, Lymph % (Auto) 10.8 L, [place] % (Auto) 8.3, Eos % (Auto) 2.8, Baso % (Auto) 0.5, Absolute Neuts (auto) 9.8 H, Absolute Lymphs (auto) 1.38, Nucleated RBC % 0, Sodium 137, Potassium 3.9, Chloride 106, Carbon Dioxide 22.6, Anion Gap 8, BUN 16, C reatinine 0.69 L, Estim Creat Clear Calc 50.15, Est GFR (MDRD) Non-Af 86, B UN/Creatinine Ratio 22.7 H, Glucose 99, Calcium 7.9, Vancomycin Trough 11.0 Physical Exam Const alert and oriented x3 Constitutional Narrative: Patient has a silver tent to her skin General Appearance: cooperative Extremity Extremity Narrative: Right lower extremity: Purulent drainage from wound. Decreased erythema. Neuro vastly intact distally. Moderate thigh swelling. Assessment & Plan Assessment/Plan (1) Infection and inflammatory reaction due to internal right hip prosthesis, initial encounter: PLAN: Patient cleared for surgery. On antibiotics on the floor will continue with these antibiotics intraoperatively. Patient had no further questions today. Consent is signed. Patient is NPO. Will proceed with surgery today. (2) Anemia: PLAN: Patient's hemoglobin is now 9.1. Improved for surgical intervention.
[2025-03-02] MEDS: 0.9% Normal Saline (1000mL) 1,500 ML 1500 ML IV (17:34)
[2025-03-02] MEDS: Lidocaine 1% (5 ml sdv) 5 ML Vial 6 ML IV (17:42)
--- NOTE | 2025-03-02 18:50 | RAD_ITS ---
PROCEDURE: HIP, UNI W/ PELVIS 2-3 VIEWS 03/02/2025 REASON FOR EXAM: IND HIP TECHNIQUE: Procedure Code: RAD Modality: DX Procedure: HIP, UNI W/ PELVIS 2-3 VIEWS Laterality: FINDINGS: Status post hip arthroplasty. 1.7 seconds. 0.20 mGy. See procedure report for full details. RAD/HIP, UNI W/ Pelvis 2-3 Views IMPRESSION: As above. Reading Location: [id number]
[2025-03-02] MEDS: TXA 2000mg in NS 100ml (Placed in Wound) OPERA.SITE (19:27)
[2025-03-02] MEDS: fentaNYL 100 MCG/2 ML Ampul 300 MCG IV (19:43)
--- NOTE | 2025-03-02 19:46 | OP.PCM_ITS ---
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 Their intimate knowledge of my steps in the procedure aided in safe and expedient completion of the procedure. The PE played a vital rolls in positioning particularly in obtaining the ap propriate positioning of the) Additional assistant housekeeping manager?: No Type of Anesthesia: General RN Documented Start/Stop Times: Operation Date: 03/02/25 16:00 Case Time Into Pre-Op 03/02/25 14:52 Out of Pre-Op 03/02/25 17:30 Anesthesia Start 03/02/25 17:31 Into Room 03/02/25 17:31 Procedure Start 03/02/25 18:07 Procedure End 03/02/25 20:06 Anesthesia End 03/02/25 20:24 Out of Room 03/02/25 20:24 Into Recovery 03/02/25 20:43 Out of Recovery 03/02/25 21:35 Procedure Start Time: 18:07 Procedure Stop Time: 20:06 Select all DRAINS/GRAFTS/IMPLANTS that apply: Prosthetic device Prosthetic devic e details: 1. [place] insignia size 4 high offset stem 2. Yumiko Unitrax 43 mm femoral head with standard sleeve Special Medications: Zosyn and vancomycin antibiotics on the floor. vancomycin powder was placed in the wound Estimated Blood Loss: 400 mL Fluids Replaced: 1 unit packed red blood cells. 1500 mL crystalloid Specimen collected: Yes Description of specimen(s) removed: 3 separate specimens were sent to microbiology Description of surgery: On the day of the procedure patient was seen and marked in the preoperative area. Patient was then brought back to the operating room where they were transferred to the table in the supine position. Anesthesia assumed control of the C-spine and airway and remained controlled throughout the remainder of the procedure. After patient was appropriate anesthetized all bony prominences were identified well-padded. Patient was appropriate position on the table. Her dressing was removed and she was noted to have gross purulence draining from the wound. We carefully expressed as much of this purulent fluid as we could in order to decrease contamination intraoperatively. After expressing this her wounds continues to open more. We cleaned her body with presurgical cleaning wipes and the right lower extremity was then prepped in a sterile fashion using Betadine scrub. Surgeon scrubbed and upon reentering the room the right lower extremity was draped in a standard orthopedic fashion. Timeout was called everyone agreed upon the side, the site, the procedure was performed, patient's identity and by skin. At this time the superficial wound was identified and the skin edges were debrided. About 3 mm of unhealthy skin were debrided back to the length of the incision which was about 20 cm. This was done on the medial and lateral aspect for total of about 40 cm length of skin. Once was done we carefully debrided the subcutaneous fatty tissues of necrotic areas and synovium. Once this area was sharply debrided using scalpel and curettage we were able to identify the TFL. We carefully dissected over the TFL down to the joint where we also encountered purulent fluid. Upon entering the joint 3 specimens were sent to microbiology. We carefully debrided and performed a synovectomy around the prosthesis once we are able to do this and release the proximal portion of the reflected head of the rectus femoris we were able to dislocate the joint. Once the joint was dislocated bone tamp was used to dissociate the femoral head from the femoral trunnion. Based on the recent nature and the infectious etiology we elected to attempt to remove the femoral stem which using a bone tamp was r emoved very easily. We used a curette to carefully debride any membrane from inside the femoral canal and then we broached the femoral canal to further debride it. Once we are happy with this broaching we felt the bone was appropriate for a press-fit implant once more. We broached up to a size 4 which is what she had had before. Based on her previous size we elected to use the size for moving forward. The broach was removed. The wound was lupe irrigated out with normal saline under low-pressure lavage total of 6 L. Throughout this we also used chlorhexidine lavage periodically as we know from different steps of this procedure. Once the wound was adequately cleaned up and debrided the femur was again exposed femoral component was opened and impacted into place. Trialing off the femoral component we then reduced the hip using a standard femoral neck sleeve and a 43 mm head. Leg lengths appeared equal live x-rays used to verify leg lengths as well as the medial malleolus. Once this was completed we also checked stability anteriorly and posteriorly. Once we are happy with anterior and posterior stability hip was dislocated femoral trunnion was again exposed chlorhexidine solution was used to irrigate off the trunnion trunnion was cleaned dried and the femoral head was associated on the back table with the sleeve and impacted into place. Hip was again reduced. Hip remained stable with good leg lengths. At this time the wound was copiously irrigated out with a dilute Betadine lavage followed by chlorhexidine lavage followed by TXA lavage followed by copious amounts of normal saline. Vancomycin powder was then placed in the wound and the wound was closed in a layered jacobson fashion. #1 Vicryl was used to close the deep fascia. #1 Vicryl was used to close the deep fatty layer using [id number] interrupted. 2-0 Vicryl was used to close the skin layer and final skin layer was closed using 2-0 nylon sutures in an interrupted fashion. Once was completed Prevena wound VAC was placed on the incision patient was awakened anesthesia and transferred to PACU for recovery in stable condition. Postoperative plan DVT prophylaxis: Patient will remain on Lovenox while in house. Recommend transition to Xarelto upon discharge. Would recommend a total of 2 weeks of Xarelto anticoagulation followed by 2 weeks of baby aspirin twice a day. Wound care: Would leave the wound VAC on for a total of 1 week additional wound VAC use if Drainage continues. Infectious disease: Antibiotic course and duration we left up to infectious disease. An orthopedic standpoint I would recommend we consider chronic suppressive antibiotics after course of IV antibiotics. Therapy: Weightbearing status will be weightbearing as tolerated and we will use standard anterior total hip posterior therapy protocol. Surgical Findings: Grossly infected subcutaneous tissues and purulence noted in the joint. Complications Complications: No Admit VTE Documentation VTE Present on Admission: No VTE Mechan Device Prophylaxis: SCD's and Thigh High BELEN Hose VTE Pharm Prophylaxis ordered?: Yes
--- NOTE | 2025-03-02 20:32 | PCM.POST.ANE ---
Anesthesia: Postop Eval I Current Vital Signs Temperature: 98.3 F Pulse Rate: 92 Blood Pressure: 127/91 Respiratory Rate: 16 Pulse Ox: 100 Oxygen Delivery Method: Room Air Assessment Airway patent: Yes Spontaneous unlabored respirations: Yes Mental status: Awake and Calm nausea: No Vomiting: No Anesthesia Complication: No Fluid Hydration Crystalloid volume administer (ml): 1,500 Blood Product volume administered (ml): 250 Total IV fluid infused: 1,750 Progress Note Post-operative progress note: Comfortable in PACU. Stating her name. Date of . State and is comfortable. PACU nurse is present. Report given to PACU nurses at bedside. Anesthesia document: Postop Eval 1 completed: Yes
--- NOTE | 2025-03-02 20:50 | PCM.POSTANE2 ---
Anesthesia Postop Eval I Sum Postop Eval Completion status Anesthesia document: Postop Eval 1 completed: Yes Anesthesia Postop Eval I Summary Anesthesia Postop Eval I Summary: Anesthesia Postop Eval I: Assessment Summary Airway patent Yes 03/02/25 20:33 Spontaneous unlabored Yes 03/02/25 20:33 respirations Mental status Awake,Calm 03/02/25 20:33 nausea No 03/02/25 20:33 Vomiting No 03/02/25 20:33 Anesthesia Postop Eval I: Fluid Summary Crystalloid volume administer 1,500 03/02/25 20:33 (ml) Colloids volume administered ( ml) Blood Product volume 250 03/02/25 20:33 administered (ml) Total IV fluid infused 1,750 03/02/25 20:33 Anesthesia Postop Eval I: Summary Notes Anesthesia Complication No 03/02/25 20:33 Anesthesia Complication Comment: Post-operative progress note Comfortable in 03/02/25 20:33 PACU. Stating her name. Date of . State and is comfortable. PACU nurse is present. Report given to PACU nurses at bedside. Anesthesia: Postop Eval II Evaluation Mental status: Awake and Calm Pain Level: 1 nausea: No Vomiting: No Progress Note Post-operative progress note: Doing very well in PACU. Conversing comfortably. Stated feels well. Complications Anesthesia Complication: No
--- NOTE | 2025-03-02 21:10 | RAD_ITS ---
PROCEDURE: HIP MIN 2 VIEWS (PORTABLE) 03/02/2025 REASON FOR EXAM: POST OP TECHNIQUE: Procedure Code: RADH_P Modality: DX Procedure: HIP MIN 2 VIEWS (PORTABLE) Laterality: COMPARISON: 02/2025. FINDINGS: Right hip arthroplasty. Left hip internal fixation. No evidence of acute complication. RAD/Hip Min 2 Views (Portable) IMPRESSION: As above. Reading Location: [id number]
[2025-03-02] MEDS: 0.9% Saline Lock 10 ML Syringe IV (22:23)
[2025-03-03 01:33] VITALS: BP 119/62; PULSE 80; RESP 16; TEMP 36.8; O2SAT 97
[2025-03-03 03:24] VITALS: BP 130/54; PULSE 82; RESP 16; TEMP 36.7; O2SAT 100
[2025-03-03] MEDS: Vancomycin HCl 750 MG in 0.9% Normal Saline (250mL Bag) 250 ML 250 MG IV (06:46)
[2025-03-03] MEDS: 0.9% Normal Saline (250mL Bag) 250 ML 15 ML IV ×2 (06:52→23:43)
[2025-03-03] MEDS: Piperacil/Tazobactam 3.375 GM in 0.9% Normal Saline (50mL MB+) 50 ML IV ×3 (06:57→22:57)
[2025-03-03 07:39] LABS: Hematocrit 29.2 % (37-47); Hemoglobin 9.3 g/dL (12.0-15.0); Immature Granulocytes Count 0.190 X10^3/uL (0.0-0.0); Mean Corp Hgb Conc 31.8 g/dL (32-36); Mean Corpuscular Volume 84.9 fL (81-99); Mean Platelet Vol. 8.3 fl (6.2-12.0); NRBC Flagged by Analyzer 0 % (0-5); Platelet Count 445 K/mm3 (150-450); RBC Distribution Width CV 14.2 % (11.6-14.6); RBC Distribution Width SD 44.1 fl (35.1-43.9); Red Blood Count 3.44 M/mm3 (4.2-5.4); White Blood Count 11.2 K/mm3 (4.4-11.0)
--- NOTE | 2025-03-03 07:57 | PCM.PN.HOSP ---
Reason for Visit Chief Complaint: Right hip wound infection Subjective Subjective No new events. Objective Data Objective Data Vital Signs: Vital Signs Temp Pulse Resp BP Pulse Ox O2 Del Method 36.7 C 82 16 130/54 H 100 Room Air 03/03/25 03:24 03/03/25 03:24 03/03/25 03:24 03/03/25 03:24 03/03/25 03:24 03/03/25 03:24 Oxygen Delivery Method Room Air Weight: 73.9 kg Body Mass Index (BMI) 29.7 Intake & Output: Intake and Output for Last 24 Hours 03/01/25 03/02/25 03/03/25 23:59 23:59 23:59 Intake Total 2720 / 2870 880 / 880 150 / 150 Output Total 680 / 1030 1550 / 1550 0 / 0 Balance 2040 / 1840 -670 / -670 150 / 150 Lab / Micro Data 03/03/25 06:54 03/03/25 06:54 Labs: Laboratory Results - last 24 hr 03/01/25 14:35: Blood Type B POSITIVE, Antibody Screen NEGATIVE, Crossmatch See Detail 03/03/25 06:54: WBC 11.2 H, RBC 3.44 L, Hgb 9.3 L, Hct 29.2 L, MCV 84.9, MCH 27.0, MCHC 31.8 L, RDW Std Deviation 44.1 H, RDW Coeff of Aleena 14.2, Plt Count 445, MPV 8.3, Immature Gran % (Auto) 1.700 H, Neut % (Auto) 71.1 H, Lymph % (Auto) 13.1 L, [place] % (Auto) 11.6 H, Eos % (Auto) 2.1, Baso % (Auto) 0.4, Absolute Neuts (auto) 8.0 H, Absolute Lymphs (auto) 1.47, Nucleated RBC % 0 Micro: Microbiology 02/28/25 17:10 Blood Culture (Wb) - Venous Blood Culture - Preliminary No growth in 48 hours. 02/28/25 16:50 Blood Culture (Wb) - Venous Blood Culture - Preliminary No growth in 48 hours. Radiography Diagnostic Testing: Radiology Impression Hip/Pelvis X-Ray 03/02/25 18:50 IMPRESSION: As above. Reading Location: [address] Hip X-Ray 03/02/25 21:10 IMPRESSION: As above. Reading Location: [address] Physical Exam Const alert and no apparent distress HEENT head/scalp atraumatic and moist oral mucous membranes Neuro Sensorium / Orientation: awake and alert Assessment & Plan Assessment/Plan (1) Surgical site infection: PLAN: Plan Right hip surgical site infection Orthopedic surgery consulted. Recent right hip endoprosthesis placement done on 01/[address] Tijerina Presented with erythema and drainage at surgical incision site of right hip. X-ray showed soft tissue air adjacent to right hip arthroplasty possibly representing infection. Will treat with IV vancomycin and Zosyn for now. Follow-up blood cultures and cultures drawn from wound drainage. Patient underwent a stage revision of femoral component right hip with irrigateion debridement skin SQ tisue fat, fascia and muscle capsule and bony tissue right thigh/hip on the . Consult ID for long-term abx recs. Wound culture thus far showing MRSA. Weight bearing as tolerated Recent right femoral neck fracture s/p right hip endoprosthesis placement PT/OT/case management consulted. Patient has been residing at [facility] ([facility]) since discharge from here on 01/25. Suspect she will be fine to return there on discharge. Appreciate therapy recommendations. Anemia: Hg 7.9. improved to 9.3 after transfusion (post-op). 1 unit on hold. Chronic medical conditions: ? Parkinson's disease: Stable. Continue home Sinemet. ? History of CAD with stenting, hyperlipidemia: Mildly hypotensive on admit to the 100s over 50s, improved with fluid resuscitation. Continue home aspirin and statin. ? Chronic iron deficiency anemia: Hemoglobin 9.5 on admit, was stable around 8.5-9 postoperatively in mid January. Follow-up a.m. CBC. Continue home iron supplement. ? Overactive bladder: Continue home mirabegron. ? Anxiety/depression/fibromyalgia: Continue home duloxetine. DVT prophylaxis: Lovenox. Ortho recs: a total of 2 weeks of Xarelto anticoagulation followed by 2 weeks of baby aspirin twice a day. CODE STATUS: DNR-CCA, DNI Expected disposition: Likely back to [facility], TBD Charges/Coding Visit Charges Inpatient E&M: 76812 Subs Hosp L1
[2025-03-03 08:02] VITALS: BP 114/40; PULSE 75; RESP 16; TEMP 36.8; O2SAT 99
[2025-03-03 08:06] LABS: Anion Gap 10 (5-15); BUN 14 mg/dL (4-19); BUN/Creat Ratio 19.1 RATIO (10-20); Calcium,Total 7.2 mg/dL (7.6-11.0); Carbon Dioxide 19.9 mmol/L (21.0-32.0); Chloride 109 mmol/L (98-108); Estimated Creatinine Clearance 50.15 ml/min (50-250); Glucose 96 mg/dL (70-99); Potassium 3.8 mmol/L (3.3-5.1)
[2025-03-03] MEDS: Ensure Surgery 237 ML LIQUID PO (08:17)
[2025-03-03] MEDS: Aspirin E.C. 81 MG Tablet PO (08:17)
[2025-03-03 08:29] VITALS: O2SAT 98
[2025-03-03] MEDS: Senna Tablet 1 TABLET PO (09:49)
[2025-03-03] MEDS: Cholecalciferol (VIT D3) 25 MCG TABLET (1,000 UNITS) 50 MCG PO (09:49)
--- NOTE | 2025-03-03 10:04 | PN.ORTHO_ITS ---
Subjective Subjective Patient is sitting comfortably in bed upon examination. Patient states that she is doing well for all things considered at this time. Patient states that her pain is adequately controlled at this time. Patient denies any new nausea vomiting dizziness. Patient denies any new numbness or tingling. Patient denies any shortness of breath, chest pain, calf pain. Patient denies any adverse events overnight. Objective Data Objective Data Vital Signs: Vital Signs Temp Pulse Resp BP Pulse Ox O2 Del Method 98.2 F 75 16 114/40 L 98 Room Air 03/03/25 08:02 03/03/25 08:02 03/03/25 08:02 03/03/25 08:02 03/03/25 08:29 03/03/25 08:29 Oxygen Delivery Method Room Air Weight: 73.9 kg Body Mass Index (BMI) 29.7 Intake & Output: Intake and Output for Last 24 Hours 03/01/25 03/02/25 03/03/25 23:59 23:59 23:59 Intake Total 2720 / 2870 880 / 880 150 / 150 Output Total 680 / 1030 1550 / 1550 0 / 0 Balance 2040 / 1840 -670 / -670 150 / 150 Lab / Micro Data 03/03/25 06:54 03/03/25 06:54 Labs: Laboratory Results - last 24 hr 03/01/25 14:35: Blood Type B POSITIVE, Antibody Screen NEGATIVE, Crossmatch See Detail 03/03/25 06:54: WBC 11.2 H, RBC 3.44 L, Hgb 9.3 L, Hct 29.2 L, MCV 84.9, MCH 27.0, MCHC 31.8 L, RDW Std Deviation 44.1 H, RDW Coeff of Aleena 14.2, Plt Count 445, MPV 8.3, Immature Gran % (Auto) 1.700 H, Neut % (Auto) 71.1 H, Lymph % (Auto) 13.1 L, [place] % (Auto) 11.6 H, Eos % (Auto) 2.1, Baso % (Auto) 0.4, A bsolute Neuts (auto) 8.0 H, Absolute Lymphs (auto) 1.47, Nucleated RBC % 0, Sodium 138, Potassium 3.8, Chloride 109 H, Carbon Dioxide 19.9 L, Anion Gap 10, BUN 14, Creatinine 0.75, Estim Creat Clear Calc 50.15, Est GFR (MDRD) Non-Af 79, BUN/Creatinine Ratio 19.1, Glucose 96, Calcium 7.2 L Micro: Microbiology 03/02/25 Unknown Wound - Hip Wound Culture - Preliminary No growth-Final to follow 02/28/25 17:10 Blood Culture (Wb) - Venous Blood Culture - Preliminary No growth in 48 hours. 02/28/25 16:50 Blood Culture (Wb) - Venous Blood Culture - Preliminary No growth in 48 hours. Radiography Diagnostic Testing: Radiology Impression Hip/Pelvis X-Ray 03/02/25 18:50 IMPRESSION: As above. Reading Location: [address] Hip X-Ray 03/02/25 21:10 IMPRESSION: As above. Reading Location: [address] Physical Exam Narrative BELEN hose in place bilaterally SCDs in place bilaterally Prevena wound VAC in place. No drainage in the tubing or canister. Dorsiflexion and plantarflexion are performed actively without pain or restriction Minimal tenderness to palpation over bilateral calves which patient states is her normal baseline and is not new pain. Sensation intact light touch. Neurovascularly intact overall. Negative Homans bilaterally. Vital signs stable and afebrile. Const alert, oriented x3 and no apparent distress Assessment & Plan Assessment/Plan (1) Infection and inflammatory reaction due to internal right hip prosthesis, initial encounter: PLAN: Status post 1 component 1 stage revision complete femoral component right hip with irrigation debridement skin subcutaneous tissue fat, fascia and muscle capsule and bony tissue right thigh/hip day 1. 1. DVT prophylaxis: Patient is currently on Lovenox while in house. Orthopedics recommendation is to transition to Xarelto 10 mg daily for 2 weeks upon discharge. Following last dose of Xarelto will be recommended that patient does aspirin 81 mg twice daily for an additional 2 weeks. It is also recommended that patient wear her BELEN hose for 2 weeks postoperatively. 2. Pain medications: Patient's pain is currently controlled and is being managed by primary care service which is hospitalist. 3. H&H: 9.3/29.2. Hemoglobin has continued to improve. Patient did receive transfusion. Vital signs are stable and patient is afebrile at this time. 4. White blood cell count 11.2. White blood cell count has continued to improve following surgery. 5. Microbiology: Patient is currently on IV vancomycin and Zosyn. Infectious disease is involved at this time and has been consulted for long-term recommendations for antibiotics. It is Ortho recommendation to potentially do chronic suppressive antibiotics after completion of IV antibiotics. Gram stain's and cultures are currently still pending. We will continue to follow. 6. Prevena wound VAC: Patient will be wearing wound VAC for 1 week postoperatively. Patient was educated that she is not to get her wound VAC wet and will have to sponge bathe until wound VAC is removed. May use an additional wound VAC if drainage continues following completion of the first wound VAC. 7. Physical therapy: Patient is to work with physical therapy. Patient will be weightbearing as tolerated with walker following anterior hip precautions at this time. 8. Case management will continue to be involved for safe and proper discharge. 9. Postoperative constipation: Patient was instructed to use senna until first bowel movement and then can use as needed. Patient was encouraged to let us know if she does not have a bowel movement by postoperative day 3. 10. Incentive spirometry: Patient was encouraged to use incentive spirometer every hour that she is awake for the first week to exercise lungs and decrease risk postoperative lung infection. 11. Medicine is involved as primary care team at this time and will continue to manage chronic conditions. 12. Patient will need a 2-week follow-up appointment with our office for wound check and follow-up. 13. Disposition: We will plan to continue to watch cultures and Gram stain at this time. Cultures and Gram stains are not resulted. Infectious disease has been consulted at this time for long-term recommendations for antibiotics. Is orthopedics recommendation to potentially continue chronic suppressive oral antibiotics after IV antibiotics. Patient will continue to be weightbearing as tolerated with physical therapy following anterior hip precautions. White blood cell count and hemoglobin and hematocrit has continued to improve. Patient will need a 2-week follow-up appointment with our office for wound check and reevaluation. Patient will need outpatient physical therapy as scheduled upon discharge. Patient was encouraged to call our office with any questions, concerns, new problems.
--- NOTE | 2025-03-03 10:29 | CASEMGMT ---
Discharge Planning Updates sent via [facility] to [place] with note that pt could return over the weekend. Wknd phone/fax requested. Awaiting response. Frida Santamaria DC Planning Asst.
--- NOTE | 2025-03-03 10:43 | CASEMGMT ---
Addendum entered by Thong Peterson 03/03/25 15:55: PICC insertion documentation sent to [facility] via [facility] per request. Addendum entered by Thong Peterson 03/03/25 15:51: No message received back from ALIYAH Crowell, yet re: if Dr Tijerina wants to see pt tomorrow prior to discharge. Message sent to Radha via [employer] this afternoon to inquire if she has heard back from him. No response as of yet. RNTanner, made aware. Tanner herr will put message in nursing handoff to reach out to Dr Tijerina tomorrow prior to discharge to inquire if he wishes to see pt before she discharges. Addendum entered by Thong Peterson 03/03/25 15:47: 10:50 AM: Message received from Radha Abernathy stating she would let Dr. Tijerina know that plan is for pt to discharge tomorrow and that she will check to see if he wants to see her tomorrow prior to discharge. Addendum entered by Thong Peterson 03/03/25 15:45: 11:35: Scripts for IV Vanco and PO rifampin received from Dr Gao and sent to [facility] via [facility]. Original Note: AUGUSTIN HOBBS NOTE: Per Dr Gao, pt can discharge tomorrow from his stand-point. He states will write script for IV atb's @ discharge today. Dr Raygoza and ALIYAH Crowell, made aware. AUGUSTIN HOBBS to room and pt updated. Call also placed to pt's daughter, Palmira, and she was made aware. AUGUSTIN HOBBS will send IV atb script to [facility] via [facility] when available. Christo RUFFIN RN, CM
--- NOTE | 2025-03-03 10:57 | CASEMGMT ---
Green sheet and transport form completed and placed on pts chart. Pt can return to [place] while her precert is pending. Frida Santamaria DC Planning Asst.
[2025-03-03 16:52] VITALS: BP 104/53; PULSE 86; RESP 16; TEMP 36.8; O2SAT 98
[2025-03-03 18:35] LABS: Vancomycin, Trough Level 23.0 ug/mL (5.0-15.0)
[2025-03-03] MEDS: Vancomycin Trough/Random Due 1 LAB MC (18:46)
--- NOTE | 2025-03-03 19:22 | PCM.RX.CS ---
Consult Antibiotic Management Pharmacy has been consulted to manage selected antibiotic: Vancomycin Type of Intervention Type of Consult: Follow-up Suspected Infection Suspected Infection: Skin/Soft tissue Prior Doses of Antibiotics Prior Doses of Antibiotics Received/Current Regimen: 3 Labs Labs: Sodium 138 mmol/L (133-145) 03/03/25 06:54 Potassium 3.8 mmol/L (3.3-5.1) 03/03/25 06:54 Chloride 109 mmol/L (98-108) H 03/03/25 06:54 Carbon Dioxide 19.9 mmol/L (21.0-32.0) L 03/03/25 06:54 Anion Gap 10 (5-15) 03/03/25 06:54 BUN 14 mg/dL (4-19) 03/03/25 06:54 Creatinine 0.75 mg/dL (0.70-1.20) 03/03/25 06:54 Est GFR (MDRD) Non-Af 79 (>60) 03/03/25 06:54 BUN/Creatinine Ratio 19.1 RATIO (10-20) 03/03/25 06:54 Glucose 96 mg/dL (70-99) 03/03/25 06:54 Vancomycin Trough 23.0 ug/mL (5.0-15.0) H 03/03/25 18:01 Microbiology Microbiology: Microbiology 03/02/25 Unknown Tissue - Hip Gram Stain - Final 03/02/25 Unknown Tissue - Hip Gram Stain - Final 03/02/25 Unknown Wound - Hip Gram Stain - Final 03/02/25 Unknown Wound - Hip Wound Culture - Preliminary No growth-Final to follow 02/28/25 17:10 Blood Culture (Wb) - Venous Blood Culture - Preliminary No growth in 48 hours. 02/28/25 16:50 Blood Culture (Wb) - Venous Blood Culture - Preliminary No growth in 48 hours. Dosing Weight Weight used for dosin.9 kg Goal Trough Goal Trough: 15-20 mcg/mL Pharmacy Plan for Drug Dosing Pharmacy Plan for Drug Dosing: VANCOMYCIN LEVEL RECEIVED Current Vancomycin Dose: 750 MG Q12H Number of Doses Received: 3 Vancomycin Level: 23 Hours Since Last Dose: 11.75 Renal Function: 0.75 MD/DL 50 ML/MIN Renal Function Trend: STABLE Vancomycin Plan/Comments: Supra-therapeutic trough. Will hold dose and Redraw a random level post 12 hours, then dose accordingly. Pharmacy Service will continue to monitor and adjust dosing as required. Pending Level: 03/04/2025 @0600 Follow-Up Labs Follow-Up Labs: Trough: Vancomycin (RANDOM) Date/Time Labs Ordered Labs to be done on [date and time ordered]: 03/04/2025 @0600
[2025-03-03 20:31] VITALS: BP 113/45; PULSE 83; RESP 18; TEMP 36.5; O2SAT 100
[2025-03-04] VITALS (18 sets, daily range): BP systolic 79–142; BP diastolic 41–74; PULSE 68–158; RESP 16–21; TEMP 36.5–36.9; O2SAT 96–100
--- NOTE | 2025-03-04 03:06 | EKG12_ITS ---
Test Reason : RHYTHM CHANGE Blood Pressure : */* mmHG Vent. Rate : 159 BPM Atrial Rate : * BPM P-R Int : * ms QRS Dur : 72 ms QT Int : 274 ms P-R-T Axes : * 20 230 degrees QTcB Int : 445 ms Atrial fibrillation with rapid ventricular response Nonspecific ST and T wave abnormality Abnormal ECG When compared with ECG of 20-Jan-2025 05:39, Atrial fibrillation has replaced Sinus rhythm Vent. rate has increased by 56 bpm Nonspecific T wave abnormality now evident in Inferior leads Confirmed by EULOGIO DEL RIO, POLO ([id number]), film and video editor GRAEME TAPIA ([id number]) on 03/07/2025 10:28:15 AM Referred By: MADHURI Confirmed By: POLO KRISHNAN MD
--- NOTE | 2025-03-04 03:35 | CT_ITS ---
PROCEDURE: Procedure description 03/04/2025 REASON FOR EXAM: R/O PE TECHNIQUE: Procedure Code: CTCTACHWW Modality: CT Procedure: CTA CHEST W/WO CONTRAST Multiplanar Sagittal and Coronal images were obtained. CONTRAST: VOLUME: mL One or more dose reduction techniques were used (e.g., Automated exposure control, adjustment of the mA and/or kV according to patient size, use of iterative reconstruction technique). RADIATION DOSE SUMMARY: CTDlvol: 35.15 mGy DLP: DLP 350.55 mGycm COMPARISON: # of known CTs in the past 12 months: none # of known Cardiac Nuclear Medicine Studies in the past 12 months: Lumbar of no cardiac nuclear medicine none FINDINGS: Thoracic Aorta: The thoracoabdominal aorta is slightly calcified. There is no evidence of an aortic aneurysm, aortic pseudoaneurysm, nor aortic dissection. cm Heart: There are right coronary artery stents. There are slight coronary artery calcifications. Pulmonary Vessels: Pulmonary vessels show normal opacification, normal branching, and no evidence of a filling defect. Hardware: There are precordial chest leads. Lymph nodes: There is no evidence of adenopathy. Lungs and Airways: There is dependent subpleural atelectasis, bilaterally. Pleura: There are small dependent bilateral pleural effusions. Upper Abdomen: There is a 13 mm diameter near water attenuation mass in the central aspect of the posterior hepatic segment. There is a 23 mm diameter near water attenuation mass in the central aspect of the anterior hepatic segment. There is a 4 mm mass in the central aspect of the lateral hepatic segment. These are round, circumscribed masses that may be simple cysts. Because of the size of the 2 larger masses they should be further evaluated with ultrasound to determine if they are simple cysts, complex cysts, or solid lesions. The gastric lumen is not opacified on this examination. Bones: There are hypertrophic type degenerative changes at left lower cervical facet joints. CT/CTA Chest W/WO Contrast IMPRESSION: IMPRESSION: No evidence of an acute process. Specifically, there is no evidenc e of a pulmonary embolus. Small dependent bilateral pleural effusions and associated subpleural atelectas is. Atherosclerosis. 3 near-water attenuation hepatic masses that may be simple cysts. RECOMMEND: Targeted ultrasound of the liver to determine if the 2 dominant hepa tic masses are simple cysts, complex cystic, or solid. Reading Location: [id number]
--- NOTE | 2025-03-04 03:40 | PN.HOSP_ITS ---
Hospitalist Note Patient developed new onset A-fib with RVR. Hemodynamically stable and actually somewhat hypertensive. Heart rates in the 130-140 range. Verified on twelve- lead EKG. Recent TSH was within normal limits. Patient also had a recent echocardiogram that does show some valvular abnormalities with a normal EF. Given the fact she had a recent hip fracture and her DVT prophylaxis has been on hold due to a drop in her hemoglobin I will go ahead and check a CTA. It does look like her hemoglobin has been stable in the 9-9.5 range in the last 48 hours. CBC is also pending for this morning. Will give 5 mg of IV Lopressor x 1 dose then start Lopressor 25 mg p.o. twice daily this morning. Will start heparin drip for now given the fact that she had a drop in her hemoglobin as this would be more quickly reversible than placing her on Eliquis. Transfer to PCU given new onset A-fib with RVR.
[2025-03-04] MEDS: 0.9% Saline Lock 10 ML Syringe IV ×7 (04:52→21:59)
[2025-03-04] MEDS: 0.9% Normal Saline (250mL Bag) 250 ML 15 ML IV ×2 (05:04→08:21)
[2025-03-04 05:14] LABS: Hematocrit 26.4 % (37-47); Hemoglobin 8.3 g/dL (12.0-15.0); Immature Granulocytes Count 0.240 X10^3/uL (0.0-0.0); Mean Corp Hgb Conc 31.4 g/dL (32-36); Mean Corpuscular Volume 85.2 fL (81-99); Mean Platelet Vol. 8.2 fl (6.2-12.0); NRBC Flagged by Analyzer 0.1 % (0-5); POSITIVE DIFFERENTIAL YES; Platelet Count 409 K/mm3 (150-450); RBC Distribution Width CV 14.5 % (11.6-14.6); RBC Distribution Width SD 44.8 fl (35.1-43.9); Red Blood Count 3.10 M/mm3 (4.2-5.4); White Blood Count 13.6 K/mm3 (4.4-11.0)
[2025-03-04] MEDS: Piperacil/Tazobactam 3.375 GM in 0.9% Normal Saline (50mL MB+) 50 ML IV ×3 (05:16→21:47)
[2025-03-04 05:34] LABS: AST(SGOT) 23 U/L (<=31); Alanine Aminotransfer ALT/SGPT < 5 U/L (<=34); Albumin, Serum 2.4 g/dL (3.4-4.8); Alkaline Phosphatase 92 U/L (35-104); Anion Gap 7 (5-15); BUN 21 mg/dL (4-19); BUN/Creat Ratio 21.1 RATIO (10-20); Bilirubin, Direct 0.56 mg/dL (0.00-0.30); Calcium,Total 8.0 mg/dL (7.6-11.0); Carbon Dioxide 21.2 mmol/L (21.0-32.0); Chloride 108 mmol/L (98-108); Estimated Creatinine Clearance 39.72 ml/min (50-250); Globulin 2.9 g/dL (2.2-4.2); Glucose 104 mg/dL (70-99); Potassium 3.5 mmol/L (3.3-5.1)
[2025-03-04 05:52] LABS: Differential Indicated SCAN CRITERIA MET
[2025-03-04 05:54] LABS: Prothrombin Time (Protime)PT. 20.6 SECONDS (11.7-14.9)
[2025-03-04 05:55] LABS: Partial Thromboplast Time 53.4 Seconds (24.1-36.2)
[2025-03-04] MEDS: HEPARIN/D5w 25,000 UNITS 25,000 UNITS/250 ML IV.SOLN. 11.1 UNITS CONT INF (06:10)
[2025-03-04] MEDS: Vancomycin Trough/Random Due 1 LAB MC (06:16)
[2025-03-04 06:25] LABS: Hematocrit 26.4 % (37-47); Hemoglobin 8.4 g/dL (12.0-15.0); Immature Granulocytes Count 0.210 X10^3/uL (0.0-0.0); Mean Corp Hgb Conc 31.8 g/dL (32-36); Mean Corpuscular Volume 84.6 fL (81-99); Mean Platelet Vol. 8.2 fl (6.2-12.0); NRBC Flagged by Analyzer 0 % (0-5); Platelet Count 404 K/mm3 (150-450); RBC Distribution Width CV 14.5 % (11.6-14.6); RBC Distribution Width SD 44.5 fl (35.1-43.9); Red Blood Count 3.12 M/mm3 (4.2-5.4); White Blood Count 14.9 K/mm3 (4.4-11.0)
[2025-03-04 06:49] LABS: Vancomycin, Random Level 15.9 ug/mL (0.0-15.0)
[2025-03-04 07:01] LABS: Differential Comment SCANNED
--- NOTE | 2025-03-04 07:01 | PCM.RX.CS ---
Consult Antibiotic Management Pharmacy has been consulted to manage selected antibiotic: Vancomycin Type of Intervention Type of Consult: Follow-up Labs Labs: Sodium 137 mmol/L (133-145) 03/04/25 04:50 Potassium 3.5 mmol/L (3.3-5.1) 03/04/25 04:50 Chloride 108 mmol/L (98-108) 03/04/25 04:50 Carbon Dioxide 21.2 mmol/L (21.0-32.0) 03/04/25 04:50 Anion Gap 7 (5-15) 03/04/25 04:50 BUN 21 mg/dL (4-19) H 03/04/25 04:50 Creatinine 1.01 mg/dL (0.70-1.20) 03/04/25 04:50 Est GFR (MDRD) Non-Af 55 (>60) L 03/04/25 04:50 BUN/Creatinine Ratio 21.1 RATIO (10-20) H 03/04/25 04:50 Glucose 104 mg/dL (70-99) H 03/04/25 04:50 Vancomycin Trough 23.0 ug/mL (5.0-15.0) H 03/03/25 18:01 Random Vancomycin 15.9 ug/mL (0.0-15.0) H 03/04/25 06:17 Microbiology Microbiology: Microbiology 03/02/25 Unknown Tissue - Hip Gram Stain - Final 03/02/25 Unknown Tissue - Hip Gram Stain - Final 03/02/25 Unknown Wound - Hip Gram Stain - Final 03/02/25 Unknown Wound - Hip Wound Culture - Preliminary No growth-Final to follow 02/28/25 17:10 Blood Culture (Wb) - Venous Blood Culture - Preliminary No growth in 48 hours. 02/28/25 16:50 Blood Culture (Wb) - Venous Blood Culture - Preliminary No growth in 48 hours. Dosing Weight Weight used for dosin kg Estimated Creatinine Clearance Estimated Creatinine Clearance: 40 Goal Trough Goal Trough: 15-20 mcg/mL Pharmacy Plan for Drug Dosing Pharmacy Plan for Drug Dosing: Random vancomycin level was 15.9 (as a 23.5hr post-dose draw). Per dosing calculator, a new dose of 1250mg q24h should give an estimated trough of 15.5. Will initiate now and draw a trough prior to third dose of the new regimen. Pharmacy Service will continue to monitor and adjust dosing as required. Follow-Up Labs Follow-Up Labs: Trough: Vancomycin Date/Time Labs Ordered Labs to be done on [date and time ordered]: 03/06/25 @0633
[2025-03-04] MEDS: Amiodarone 150 MG in Dextrose 5%-Water (100mL Bag) 100 ML 600 MG IV BOLUS (07:43)
[2025-03-04] MEDS: Amiodarone 360 MG in Dextrose 5% Viaflo Bag 192.8 ML 33.3 MG CONT INF (08:04)
[2025-03-04] MEDS: Vancomycin HCl 1,250 MG in 0.9% Normal Saline (250mL Bag) 250 ML 167 MG IV (08:27)
--- NOTE | 2025-03-04 08:33 | PN.HOSP_ITS ---
Reason for Visit Chief Complaint: Right hip wound infection Subjective Subjective Had atrial fibrillation with RVR but since converted. Was on amiodarone drip. Objective Data Objective Data Vital Signs: Vital Signs Temp Pulse Resp BP Pulse Ox O2 Del Method 36.6 C 107 H 18 79/59 L 100 Room Air 03/04/25 05:15 03/04/25 08:04 03/04/25 08:04 03/04/25 08:04 03/04/25 08:04 03/04/25 08:04 Oxygen Delivery Method Room Air Weight: 73.9 kg Body Mass Index (BMI) 29.7 Intake & Output: Intake and Output for Last 24 Hours 03/02/25 03/03/25 03/04/25 23:59 23:59 23:59 Intake Total 880 / 880 765 / 765 809.50 / 809.50 Output Total 1550 / 1550 0 / 100 100 / 100 Balance -670 / -670 765 / 665 709.50 / 709.50 Lab / Micro Data 03/04/25 06:17 03/04/25 04:50 Labs: Laboratory Results - last 24 hr 03/03/25 18:01: Vancomycin Trough 23.0 H 03/04/25 04:50: WBC 13.6 H, RBC 3.10 L, Hgb 8.3 L, Hct 26.4 L, MCV 85.2, MCH 26.8 L, MCHC 31.4 L, RDW Std Deviation 44.8 H, RDW Coeff of Aleena 14.5, Plt Count 409, MPV 8.2, Immature Gran % (Auto) 1.800 H, Neut % (Auto) 65.0, Lymph % (Auto) 12.5 L, [place] % (Auto) 11.4 H, Eos % (Auto) 8.9 H, Baso % (Auto) 0.4, Absolute Neuts (auto) 8.9 H, Absolute Lymphs (auto) 1.70, Nucleated RBC % 0.1, Differential Comment SCANNED, PT Cancelled, INR Cancelled, APTT Cancelled, Sodium 137, Potassium 3.5, Chloride 108, Carbon Dioxide 21.2, Anion Gap 7, BUN 21 H, Creatinine 1.01, Estim Creat Clear Calc 39.72 L, Est GFR (MDRD) Non-Af 55 L, BUN/Creatinine Ratio 21.1 H, Glucose 104 H, Calcium 8.0, Total Bilirubin 0.89, Direct Bilirubin 0.56 H, AST 23, ALT < 5, Alkaline Phosphatase 92, Total Protein 5.3 L, Albumin 2.4 L, Globulin 2.9 03/04/25 05:30: PT 20.6 H, INR 1.7, APTT 53.4 H 03/04/25 06:17: WBC 14.9 H, RBC 3.12 L, Hgb 8.4 L, Hct 26.4 L, MCV 84.6, MCH 26.9 L, MCHC 31.8 L, RDW Std Deviation 44.5 H, RDW Coeff of Aleena 14.5, Plt Count 404, MPV 8.2, Immature Gran % (Auto) 1.400 H, Neut % (Auto) 70.3 H, Lymph % (Auto) 9.8 L, [place] % (Auto) 9.8, Eos % (Auto) 8.4 H, Baso % (Auto) 0.3, Absolute Neuts (auto) 10.5 H, Absolute Lymphs (auto) 1.45, Nucleated RBC % 0, Random Vancomycin 15.9 H Micro: Microbiology 03/02/25 Unknown Tissue - Hip Gram Stain - Final 03/02/25 Unknown Tissue - Hip Gram Stain - Final 03/02/25 Unknown Wound - Hip Gram Stain - Final 03/02/25 Unknown Wound - Hip Wound Culture - Preliminary No growth-Final to follow 02/28/25 17:10 Blood Culture (Wb) - Venous Blood Culture - Preliminary No growth in 48 hours. 02/28/25 16:50 Blood Culture (Wb) - Venous Blood Culture - Preliminary No growth in 48 hours. Radiography Diagnostic Testing: Radiology Impression Chest CTA 03/04/25 03:35 IMPRESSION: IMPRESSION: No evidence of an acute process. Specifically, there is no evidence of a pulmonary embolus. Small dependent bilateral pleural effusions and associated subpleural atelectasis. Atherosclerosis. 3 near-water attenuation hepatic masses that may be simple cysts. RECOMMEND: Targeted ultrasound of the liver to determine if the 2 dominant hepatic masses are simple cysts, complex cystic, or solid. Reading Location: [id number] Physical Exam Const alert and no apparent distress HEENT head/scalp atraumatic and moist oral mucous membranes Resp normal respiratory effort and no retractions GI normal to inspection, nondistended, normoactive bowel sounds, soft to palpation, non-tender and non-distended Assessment & Plan Assessment/Plan (1) Surgical site infection: PLAN: Plan Right hip surgical site infection * Orthopedic surgery consulted. * Recent right hip endoprosthesis placement done on 01/[address] Tijerina * Presented with erythema and drainage at surgical incision site of right hip. X-ray showed soft tissue air adjacent to right hip arthroplasty possibly representing infection. * Will treat with IV vancomycin and Zosyn for now. Follow-up blood cultures and cultures drawn from wound drainage. * Patient underwent a stage revision of femoral component right hip with irrigateion debridement skin SQ tisue fat, fascia and muscle capsule and bony tissue right thigh/hip on the . * Consult ID for long-term abx recs. * Wound culture thus far showing MRSA. * Weight bearing as tolerated Afib w RVR * Was on amiodarone drip but since discontinued. Continue with metoprolol tartrate. Change anticoagulation to apixaban from heparin drip. * Patient echocardiogram from November 07, 2024 that showed EF 65%. Indeterminate diastolic function. Biatrial enlargement. Severe 3+ tricuspid valve insufficiency. Right ventricular systolic pressure of 58 mmHg. Moderate pulmonary hypertension. Recent right femoral neck fracture s/p right hip endoprosthesis placement * PT/OT/case management consulted. Patient has been residing at [facility] ([facility]) since discharge from here on 01/25. Suspect she will be fine to return there on discharge. Appreciate therapy recommendations. Anemia: * Hg 7.9. improved to 9.3 after transfusion (post-op). 1 unit on hold. Chronic medical conditions: ? Parkinson's disease: Stable. Continue home Sinemet. ? History of CAD with stenting, hyperlipidemia: Mildly hypotensive on admit to the 100s over 50s, improved with fluid resuscitation. Continue home aspirin and statin. ? Chronic iron deficiency anemia: Hemoglobin 9.5 on admit, was stable around 8.5-9 postoperatively in mid January. Follow-up a.m. CBC. Continue home iron supplement. ? Overactive bladder: Continue home mirabegron. ? Anxiety/depression/fibromyalgia: Continue home duloxetine. DVT prophylaxis: Lovenox. Ortho recs: a total of 2 weeks of Xarelto anticoagulation followed by 2 weeks of baby aspirin twice a day. CODE STATUS: DNR-CCA, DNI Expected disposition: Likely back to SNF, TBD Charges/Coding Visit Charges Inpatient E&M: 92345 Subs Hosp L2
--- NOTE | 2025-03-04 09:50 | PCM.PN.ORT ---
Subjective Subjective No orthopedic events overnight. Patient reports she still remains more comfortable than prior to surgery. She did have atrial fibrillation last night and does appear to have converted back to normal sinus rhythm at this time. Heparin was started overnight. CTA was performed. No pulm embolus appreciated. Objective Data Objective Data Vital Signs: Vital Signs Temp Pulse Resp BP Pulse Ox O2 Del Method 97.7 F L 70 18 96/47 L 100 Room Air 03/04/25 08:00 03/04/25 09:30 03/04/25 09:30 03/04/25 09:30 03/04/25 09:30 03/04/25 09:30 Oxygen Delivery Method Room Air Weight: 162 lb 14.746 oz Body Mass Index (BMI) 29.7 Intake & Output: Intake and Output for Last 24 Hours 03/02/25 03/03/25 03/04/25 23:59 23:59 23:59 Intake Total 880 / 880 765 / 765 960.25 / 960.25 Output Total 1550 / 1550 0 / 100 100 / 100 Balance -670 / -670 765 / 665 860.25 / 860.25 Lab / Micro Data Attestation: I reviewed the patient's lab results. 03/04/25 06:17 03/04/25 04:50 Labs: Laboratory Results - last 24 hr 03/03/25 18:01: Vancomycin Trough 23.0 H 03/04/25 04:50: WBC 13.6 H, RBC 3.10 L, Hgb 8.3 L, Hct 26.4 L, MCV 85.2, MCH 26.8 L, MCHC 31.4 L, RDW Std Deviation 44.8 H, RDW Coeff of Aleena 14.5, Plt Count 409, MPV 8.2, Immature Gran % (Auto) 1.800 H, Neut % (Auto) 65.0, Lymph % (Auto) 12.5 L, Saline % (Auto) 11.4 H, Eos % (Auto) 8.9 H, Baso % (Auto) 0.4, Absolute Neuts (auto) 8.9 H, Absolute Lymphs (auto) 1.70, Nucleated RBC % 0.1, Differential Comment SCANNED, PT Cancelled, INR Cancelled, APTT Cancelled, Sodium 137, Potassium 3.5, Chloride 108, Carbon Dioxide 21.2, Anion Gap 7, BUN 21 H, Creatinine 1.01, Estim Creat Clear Calc 39.72 L, Est GFR (MDRD) Non-Af 55 L, BUN/Creatinine Ratio 21.1 H, Glucose 104 H, Calcium 8.0, Total Bilirubin 0.89, Direct Bilirubin 0.56 H, AST 23, ALT < 5, Alkaline Phosphatase 92, Total Protein 5.3 L, Albumin 2.4 L, Globulin 2.9 03/04/25 05:30: PT 20.6 H, INR 1.7, APTT 53.4 H 03/04/25 06:17: WBC 14.9 H, RBC 3.12 L, Hgb 8.4 L, Hct 26.4 L, MCV 84.6, MCH 26.9 L, MCHC 31.8 L, RDW Std Deviation 44.5 H, RDW Coeff of Aleena 14.5, Plt Count 404, MPV 8.2, Immature Gran % (Auto) 1.400 H, Neut % (Auto) 70.3 H, Lymph % (Auto) 9.8 L, Saline % (Auto) 9.8, Eos % (Auto) 8.4 H, Baso % (Auto) 0.3, Absolute Neuts (auto) 10.5 H, Absolute Lymphs (auto) 1.45, Nucleated RBC % 0, Random Vancomycin 15.9 H Micro: Microbiology 03/02/25 Unknown Tissue - Hip Gram Stain - Final 03/02/25 Unknown Tissue - Hip Gram Stain - Final 03/02/25 Unknown Wound - Hip Gram Stain - Final 03/02/25 Unknown Wound - Hip Wound Culture - Preliminary No growth-Final to follow 02/28/25 17:10 Blood Culture (Wb) - Venous Blood Culture - Preliminary No growth in 48 hours. 02/28/25 16:50 Blood Culture (Wb) - Venous Blood Culture - Preliminary No growth in 48 hours. Radiography Diagnostic Testing: Radiology Impression Chest CTA 03/04/25 03:35 IMPRESSION: IMPRESSION: No evidence of an acute process. Specifically, there is no evidence of a pulmonary embolus. Small dependent bilateral pleural effusions and associated subpleural atelectasis. Atherosclerosis. 3 near-water attenuation hepatic masses that may be simple cysts. RECOMMEND: Targeted ultrasound of the liver to determine if the 2 dominant hepatic masses are simple cysts, complex cystic, or solid. Reading Location: [id number] Physical Exam Const alert and oriented x3 General Appearance: cooperative Resp normal respiratory effort Extremity Extremity Narrative: Right lower extremity: Wound VAC dressing is clean dry and intact with no drainage in the tube. There is some mild saturation approximately. No erythema around the skin was at the site of the dressing. Vacuum seal is good. Thigh is soft and supple. Sensations intact to light touch saphenous, sural, superficial peroneal, deep peroneal, and tibial distributions Motors intact EHL, DF, PF calves are soft and supple Assessment & Plan Assessment/Plan (1) Infection and inflammatory reaction due to internal right hip prosthesis, initial encounter: PLAN: Status post 1 component 1 stage revision complete femoral component right hip with irrigation debridement skin subcutaneous tissue fat, fascia and muscle capsule and bony tissue right thigh/hip day 2. 1. DVT prophylaxis: Patient is currently on heparin due to her conversion to atrial fibrillation last evening. Spoke with medicine this morning. She appears to converted back to normal sinus rhythm and be placed on Eliquis upon discharge. Recommend at least 2 weeks of Eliquis DVT prophylaxis may require longer treatment for medical reasons. Based on discussions with medicine this morning they will place her on full anticoagulation due to her atrial fibrillation. 2. Pain medications: Patient's pain is currently controlled and is being managed by primary care service which is hospitalist. 3. Hemoglobin: 8.4 this morning. Patient is currently stable. Will defer to medicine for any transfusions. 4. White blood cell count 14.9. Left shift decreased from yesterday. Likely elevated due to stress throughout the night in relation to her conversion to atrial fibrillation and elevated heart rate. Her hip remains clinically improved from preoperative intervention. Continue IV antibiotics for infection. 5. Microbiology: Patient is currently on IV vancomycin and Zosyn. Infectious disease is involved at this time and has been consulted for long-term recommendations for antibiotics. It is Ortho recommendation to potentially do chronic suppressive antibiotics after completion of IV antibiotics. Cultures are currently pending. 1 out of 3 Gram stains does show gram-positive cocci. Patient is on antibiotics prior to obtaining deep cultures. 6. Prevena wound VAC: Patient will be wearing wound VAC for 1 week postoperatively. Patient was educated that she is not to get her wound VAC wet and will have to sponge bathe until wound VAC is removed. May use an additional wound VAC if drainage continues following completion of the first wound VAC. 7. Physical therapy: Patient is to work with physical therapy. Patient will be weightbearing as tolerated with walker following anterior hip precautions at this time. 8. Case management will continue to be involved for safe and proper discharge. 9. Postoperative constipation: Patient was instructed to use senna until first bowel movement and then can use as needed. Patient was encouraged to let us know if she does not have a bowel movement by postoperative day 3. 10. Incentive spirometry: Patient was encouraged to use incentive spirometer every hour that she is awake for the first week to exercise lungs and decrease risk postoperative lung infection. 11. Medicine is involved as primary care team at this time and will continue to manage chronic conditions. 12. Patient will need a 2-week follow-up appointment with our office for wound check and follow-up. 13. Disposition: ID has felt antibiotics are appropriate and felt patient was appropriate for discharge today. She did have an event of atrial fibrillation overnight however is converted back. Based on my discussions with medicine plan is for discharge today. If patient remains in the hospital I will reexamine her tomorrow. Is orthopedics recommendation to potentially continue chronic suppressive oral antibiotics after IV antibiotics. Patient will continue to be weightbearing as tolerated with physical therapy following anterior hip precautions. Patient will need a 2-week follow-up appointment with our office for wound check and reevaluation. Patient will need physical therapy as scheduled upon discharge. Patient was encouraged to call our office with any questions, concerns, new problems. [facility] Office:
--- NOTE | 2025-03-04 10:04 | EKG12_ITS ---
Test Reason : RHYTHM CHANGE Blood Pressure : */* mmHG Vent. Rate : 70 BPM Atrial Rate : 70 BPM P-R Int : 134 ms QRS Dur : 72 ms QT Int : 416 ms P-R-T Axes : 50 18 -29 degrees QTcB Int : 449 ms Normal sinus rhythm Normal ECG When compared with ECG of 04-Mar-2025 03:10, MANUAL COMPARISON REQUIRED DATA IS UNCONFIRMED Confirmed by EULOGIO DEL RIO, POLO ([id number]), commissioning editor GRAEME TAPIA ([id number]) on 03/07/2025 10:26:59 AM Referred By: Confirmed By: POLO KRISHNAN MD
[2025-03-04] MEDS: Cholecalciferol (VIT D3) 25 MCG TABLET (1,000 UNITS) 50 MCG PO (10:24)
[2025-03-04] MEDS: Aspirin E.C. 81 MG Tablet PO (10:24)
[2025-03-04 13:12] LABS: Partial Thromboplast Time 148.0 Seconds (24.1-36.2)
[2025-03-04 21:44] LABS: Partial Thromboplast Time 115.7 Seconds (24.1-36.2)
[2025-03-04] MEDS: APIXABAN 5 MG TABLET 10 MG PO (21:49)
[2025-03-05] MEDS: Piperacil/Tazobactam 3.375 GM in 0.9% Normal Saline (50mL MB+) 50 ML IV (06:12)
[2025-03-05 06:29] LABS: Hematocrit 24.4 % (37-47); Hemoglobin 7.8 g/dL (12.0-15.0); Immature Granulocytes Count 0.440 X10^3/uL (0.0-0.0); Mean Corp Hgb Conc 32.0 g/dL (32-36); Mean Corpuscular Volume 85.0 fL (81-99); Mean Platelet Vol. 8.8 fl (6.2-12.0); NRBC Flagged by Analyzer 0 % (0-5); Platelet Count 425 K/mm3 (150-450); RBC Distribution Width CV 14.6 % (11.6-14.6); RBC Distribution Width SD 45.4 fl (35.1-43.9); Red Blood Count 2.87 M/mm3 (4.2-5.4); White Blood Count 17.3 K/mm3 (4.4-11.0)
[2025-03-05] MEDS: Vancomycin HCl 1,250 MG in 0.9% Normal Saline (250mL Bag) 250 ML 167 MG IV (06:29)
[2025-03-05 07:14] LABS: Anion Gap 12 (5-15); BUN 24 mg/dL (4-19); BUN/Creat Ratio 25.5 RATIO (10-20); Calcium,Total 8.3 mg/dL (7.6-11.0); Carbon Dioxide 18.1 mmol/L (21.0-32.0); Chloride 107 mmol/L (98-108); Estimated Creatinine Clearance 42.68 ml/min (50-250); Glucose 99 mg/dL (70-99); Potassium 3.7 mmol/L (3.3-5.1)
--- NOTE | 2025-03-05 08:39 | PN.HOSP_ITS ---
Reason for Visit Chief Complaint: Right hip wound infection Subjective Subjective Feeling OK. No chest pain. No leg pain. Objective Data Objective Data Vital Signs: Vital Signs Temp Pulse Resp BP Pulse Ox O2 Del Method 36.8 C 70 16 116/51 L 100 Room Air 03/04/25 21:52 03/04/25 21:52 03/04/25 21:52 03/04/25 21:52 03/04/25 21:52 03/05/25 04:22 Oxygen Delivery Method Room Air Weight: 73.9 kg Body Mass Index (BMI) 29.7 Intake & Output: Intake and Output for Last 24 Hours 03/03/25 03/04/25 03/05/25 23:59 23:59 23:59 Intake Total 765 / 765 1582.51 / 1702.51 467.75 / 467.75 Output Total 0 / 100 100 / 300 400 / 400 Balance 765 / 665 1482.51 / 1402.51 67.75 / 67.75 Lab / Micro Data 03/05/25 06:08 03/05/25 06:08 Labs: Laboratory Results - last 24 hr 03/04/25 12:36: APTT 148.0 H* 03/04/25 21:24: APTT 115.7 H* 03/05/25 06:08: WBC 17.3 H, RBC 2.87 L, Hgb 7.8 L, Hct 24.4 L, MCV 85.0, MCH 27.2, MCHC 32.0, RDW Std Deviation 45.4 H, RDW Coeff of Aleena 14.6, Plt Count 425, MPV 8.8, Immature Gran % (Auto) 2.600 H, Neut % (Auto) 65.3, Lymph % (Auto) 12.9 L, [place] % (Auto) 8.0, Eos % (Auto) 11.0 H, Baso % (Auto) 0.2, Absolute Neuts (auto) 11.3 H, Absolute Lymphs (auto) 2.23, Nucleated RBC % 0, Sodium 136, Potassium 3.7, Chloride 107, Carbon Dioxide 18.1 L, Anion Gap 12, BUN 24 H, Creatinine 0.94, Estim Creat Clear Calc 42.68 L, Est GFR (MDRD) Non-Af 60, B UN/Creatinine Ratio 25.5 H, Glucose 99, Calcium 8.3 Micro: Microbiology 03/02/25 Unknown Tissue - Hip Gram Stain - Final 03/02/25 Unknown Tissue - Hip Wound Culture - Preliminary No growth-Final to follow 03/02/25 Unknown Tissue - Hip Gram Stain - Final 03/02/25 Unknown Wound - Hip Gram Stain - Final 03/02/25 Unknown Wound - Hip Wound Culture - Preliminary No growth-Final to follow 02/28/25 17:10 Blood Culture (Wb) - Venous Blood Culture - Preliminary No growth in 48 hours. 02/28/25 16:50 Blood Culture (Wb) - Venous Blood Culture - Preliminary No growth in 48 hours. Physical Exam Const alert and no apparent distress HEENT head/scalp atraumatic and moist oral mucous membranes Resp normal respiratory effort, no retractions, no use of accessory muscles and clear to auscultation bilaterally Cardio regular rate, regular rhythm, S1 normal heart sound and S2 normal heart sound GI normal to inspection, nondistended, normoactive bowel sounds, soft to palpation and non-tender Assessment & Plan Assessment/Plan (1) Surgical site infection: PLAN: Plan Right hip surgical site infection * Orthopedic surgery consulted. * Recent right hip endoprosthesis placement done on 01/[address] Tijerina * Presented with erythema and drainage at surgical incision site of right hip. X-ray showed soft tissue air adjacent to right hip arthroplasty possibly representing infection. * Will treat with IV vancomycin and Zosyn for now. Follow-up blood cultures and cultures drawn from wound drainage. * Patient underwent a stage revision of femoral component right hip with irrigateion debridement skin SQ tisue fat, fascia and muscle capsule and bony tissue right thigh/hip on the . * Consult ID for long-term abx recs. * Wound culture thus far showing MRSA. * Weight bearing as tolerated Afib w RVR * Was on amiodarone drip but since discontinued. Continue with metoprolol tartrate. Change anticoagulation to apixaban from heparin drip. * Patient echocardiogram from November 07, 2024 that showed EF 65%. Indeterminate diastolic function. Biatrial enlargement. Severe 3+ tricuspid valve insufficiency. Right ventricular systolic pressure of 58 mmHg. Moderate pulmonary hypertension. * DC with apixaban. Event monitor and follow up with cardiology. Recent right femoral neck fracture s/p right hip endoprosthesis placement * PT/OT/case management consulted. Patient has been residing at [facility] ([facility]) since discharge from here on 01/25. Suspect she will be fine to return there on discharge. Appreciate therapy recommendations. Anemia: * Hg 7.9. improved to 9.3 after transfusion (post-op). 1 unit on hold. Chronic medical conditions: ? Parkinson's disease: Stable. Continue home Sinemet. ? History of CAD with stenting, hyperlipidemia: Mildly hypotensive on admit to the 100s over 50s, improved with fluid resuscitation. Continue home aspirin and statin. ? Chronic iron deficiency anemia: Hemoglobin 9.5 on admit, was stable around 8.5-9 postoperatively in mid January. Follow-up a.m. CBC. Continue home iron supplement. ? Overactive bladder: Continue home mirabegron. ? Anxiety/depression/fibromyalgia: Continue home duloxetine. DVT prophylaxis: Lovenox. Ortho recs: a total of 2 weeks of anticoagulation followed by 2 weeks of baby aspirin twice a day. CODE STATUS: DNR-CCA, DNI Expected disposition: Likely back to [facility], TBD Charges/Coding Visit Charges Inpatient E&M: 60601 Subs Hosp L2
[2025-03-05 09:59] VITALS: BP 123/51; PULSE 77; RESP 17; TEMP 36.6; O2SAT 100
[2025-03-05 10:07] VITALS: PULSE 77
[2025-03-05] MEDS: APIXABAN 5 MG TABLET 10 MG PO (10:08)
[2025-03-05] MEDS: Aspirin E.C. 81 MG Tablet PO (10:08)
[2025-03-05] MEDS: Lactobacillis Acidophilus 1 CAP PO (10:09)
[2025-03-05] MEDS: Cholecalciferol (VIT D3) 25 MCG TABLET (1,000 UNITS) 50 MCG PO (10:09)
--- NOTE | 2025-03-05 12:39 | TREXTCAR_ITS ---
Diet Diet Order/Speech Therapy: INPATIENT Hospital Diet / Speech Therapy Order(s) 03/03/25 07:20 Diet: Regular - General Type of Dietary Supplement:: Fransico w/ L & D Diet Comments: 240mL ensure plus HP with breakfast Routine Orders/Code Status Code Status: DNRCC-A (no intubation. ) DC O2, CPAP, BIPAP needs Home O2 Discharge instructions: No Wound(s) R hip: Wound Type: Surgical Incision Therapies Weight Bearing: Weight bearing as tolerated Physical Therapy: Eval and Treat Occupational Therapy: Eval and Treat Problem/Diagnosis (1) Surgical site infection: Status: Acute Code(s): T81.49XA - Infection following a procedure, other surgical site, initial encounter Plan Right hip surgical site infection * Orthopedic surgery consulted. * Recent right hip endoprosthesis placement done on 01/[address] Tijerina * Presented with erythema and drainage at surgical incision site of right hip. X-ray showed soft tissue air adjacent to right hip arthroplasty possibly representing infection. * Will treat with IV vancomycin and Zosyn for now. Follow-up blood cultures and cultures drawn from wound drainage. * Patient underwent a stage revision of femoral component right hip with irrigateion debridement skin SQ tisue fat, fascia and muscle capsule and bony tissue right thigh/hip on the . * Consult ID for long-term abx recs. * Wound culture thus far showing MRSA. * Weight bearing as tolerated Afib w RVR * Was on amiodarone drip but since discontinued. Continue with metoprolol tartrate. Change anticoagulation to apixaban from heparin drip. * Patient echocardiogram from November 07, 2024 that showed EF 65%. Indeterminate diastolic function. Biatrial enlargement. Severe 3+ tricuspid valve insufficiency. Right ventricular systolic pressure of 58 mmHg. Moderate pulmonary hypertension. * DC with apixaban. Event monitor and follow up with cardiology. Recent right femoral neck fracture s/p right hip endoprosthesis placement * PT/OT/case management consulted. Patient has been residing at [facility] ([facility]) since discharge from here on 01/25. Suspect she will be fine to return there on discharge. Appreciate therapy recommendations. Anemia: * Hg 7.9. improved to 9.3 after transfusion (post-op). 1 unit on hold. Chronic medical conditions: ? Parkinson's disease: Stable. Continue home Sinemet. ? History of CAD with stenting, hyperlipidemia: Mildly hypotensive on admit to the 100s over 50s, improved with fluid resuscitation. Continue home aspirin and statin. ? Chronic iron deficiency anemia: Hemoglobin 9.5 on admit, was stable around 8.5-9 postoperatively in mid January. Follow-up a.m. CBC. Continue home iron supplement. ? Overactive bladder: Continue home mirabegron. ? Anxiety/depression/fibromyalgia: Continue home duloxetine. DVT prophylaxis: Lovenox. Ortho recs: a total of 2 weeks of anticoagulation followed by 2 weeks of baby aspirin twice a day. CODE STATUS: DNR-CCA, DNI Expected disposition: Likely back to SNF, TBD Allergies/Procedures Done in Hospital Allergies oxycodone (From Percocet) Allergy (Severe, Verified 03/02/25 15:00) Hives Type of Care/Length of Stay Estimated LOS: Convalescent Care Less Than 30 days Type of Care Needed: Skilled Rehab Potential: Good Prognosis: Good Additional Orders/Day of Discharge Day of Discharge: 03/05/25 Dietary and Speech Recommendations Dietitian Recommendations/Changes: Will continue cardiac diet and add ONS to support increased protein needs. Will add 240mL ensure plus HP w/ breakfast and Fransico BID w/ lunch and dinner tray. Discharge Plan Admission Admit Date/Time: 02/28/25 18:21 Primary Reason for Your Visit: Post op infection Attending Provider: Law Raygoza Primary Care Provider: Tressa Conn Consulting Providers: Eris Mitchell; Justice Gao; Braulio Tijerina Instructions Additional Instructions / Restrictions: Patient will be wearing wound VAC for 1 week postoperatively. Patient was educated that she is not to get her wound VAC wet and will have to sponge bathe until wound VAC is removed. May use an additional wound VAC if drainage continues following completion of the first wound VAC. Patient will be weightbearing as tolerated with walker following anterior hip precautions at this time. Discharge Orders/Prescriptions Prescriptions: New vancomycin 750 mg recon soln 750 mg IV Q12H 40 Days Qty: 80 0RF Rx Instructions: stop date 04/13/25. Dx: R hip PJI. Weekly bmp, cbc, LFT, esr, and vanc trough. Fax to [phone]. rifampin 300 mg capsule 300 mg PO Q12H 90 Days Qty: 180 0RF metoprolol tartrate 25 mg Tablet 25 mg PO BID Qty: 0 0RF Continued alendronate 70 mg tablet 70 mg PO QWEEK Patient Comments: TAKES EVERY THURSDAY duloxetine 20 mg capsule,delayed release(DR/EC) 20 mg PO QDAY guaifenesin 100 mg/5 mL liquid 200 mg PO Q4H PRN (Reason: cough) simethicone [Mylanta Gas] 125 mg tablet,chewable 125 mg PO BID PRN (Reason: abdominal distention) melatonin 3 mg capsule 3 mg PO HS acetaminophen [Tylenol Extra Strength] 500 mg tablet 500 mg PO Q8H PRN (Reason: pain) ferrous sulfate [FeroSul] 325 mg (65 mg iron) tablet 325 mg PO BID atorvastatin 40 mg tablet 40 mg PO QHS polyethylene glycol 3350 [ClearLax] 17 gram/dose powder 17 g PO DAILY PRN (Reason: constipation) Stacie-Mucil 3.4 gram/5.4 gram powder 1 tbsp PO DAILY PRN (Reason: CONSTIPATION) Rx Instructions: mix into at least 8 oz of water or juice before administering acetaminophen 325 mg capsule 650 mg PO Q8H PRN (Reason: fever or pain) carbidopa-levodopa [Dhivy] 25-100 mg tablet 1.5 tab PO TID mirabegron [Myrbetriq] 50 mg tablet extended release 24 hr 50 mg PO DAILY ascorbic acid (vitamin C) 500 mg capsule 500 mg PO BID Rx Instructions: GIVE WITH IRON acetaminophen 500 mg capsule 500 mg PO TID CeraVe Daily Moisturizing Lotion 1 applic topical DAILY cyanocobalamin (vitamin B-12) [Vitamin B-12] 500 mcg tablet 500 mcg PO DAILY alum-mag hydroxide-simeth [Advanced Antacid-Antigas] 400-400-40 mg/5 mL suspension 10 ml PO Q4H PRN (Reason: indigestion, GAS, HEARTBURN, NAUSEA) sennosides [Laxative (sennosides)] 8.6 mg tablet 8.6 mg PO BID cholecalciferol (vitamin D3) [D3-2000] 50 mcg (2,000 unit) capsule 50 mcg PO DAILY aspirin 81 mg Tablet,Delayed Release (Dr/Ec) 81 mg PO BREAKFAST Discontinued celecoxib 200 mg capsule 200 mg PO QDAY Rx Instructions: GIVE WITH FOOD carbidopa-levodopa 25-100 mg tablet 2 tab PO DAILY Rx Instructions: GIVE WITHIN 15 MINUTES OF SCHEDULED TIME. VERY IMPORTANT! tramadol 50 mg tablet 50 mg PO TID cephalexin 500 mg capsule 500 mg PO TID Rx Instructions: STARTED 02/26/2025. 03/05/25 COMPLETION DATE tramadol 50 mg tablet 50 mg PO DAILY PRN (Reason: pain) Referrals / Follow Up: [facility] [Provider Group] - Within 1 Month Tressa Conn MD [Primary Care Provider, Internal Medicine] - Within 2 Weeks Braulio Tijerina MD [Med Staff - Active Staff, Orthopedics] - Within 2 Weeks Tressa Rosales [[facility], Medical] Disposition Disposition (needs filled in before D/C Order can be placed): [facility]
--- NOTE | 2025-03-05 12:51 | DS.PCM_ITS ---
Providers Date of Admission: 02/28/25 Primary Care Physician: Dr. Tressa Conn MD Consultations 02/28/25 19:43 Consult: Orthopedics Routine Consulting Provider: Braulio Tijerina Reason for Consult: recent R hip replacement w/ surgical site infxn EMERGENT Consult: No Notified: Yes Date Notified: 02/28/25 Time Notified: 18:26 Method of Notification: Verbal Comments:: was already seen this a.m. by ortho 03/01/25 15:01 Consult: Infectious Disease Routine Consulting Provider: Justice Gao Reason for Consult: hip post-op infection. EMERGENT Consult: No Notified: Yes Date Notified: 03/01/25 Time Notified: 15:39 Method of Notification: Text Reason For Visit: RECENT R HIP REPLACEMENT W/SURGICAL Diagnosis Discharge Diagnosis (1) Surgical site infection: Status: Acute Code(s): T81.49XA - Infection following a procedure, other surgical site, initial encounter Plan Right hip surgical site infection * Orthopedic surgery consulted. * Recent right hip endoprosthesis placement done on 01/[address] Tijerina * Presented with erythema and drainage at surgical incision site of right hip. X-ray showed soft tissue air adjacent to right hip arthroplasty possibly representing infection. * Will treat with IV vancomycin and Zosyn for now. Follow-up blood cultures and cultures drawn from wound drainage. * Patient underwent a stage revision of femoral component right hip with irrigateion debridement skin SQ tisue fat, fascia and muscle capsule and bony tissue right thigh/hip on the . * Consult ID for long-term abx recs. * Wound culture thus far showing MRSA. * Weight bearing as tolerated Afib w RVR * Was on amiodarone drip but since discontinued. Continue with metoprolol tartrate. Change anticoagulation to apixaban from heparin drip. * Patient echocardiogram from November 07, 2024 that showed EF 65%. Indeterminate diastolic function. Biatrial enlargement. Severe 3+ tricuspid valve insufficiency. Right ventricular systolic pressure of 58 mmHg. Moderate pulmonary hypertension. * DC with apixaban. Event monitor and follow up with cardiology. Recent right femoral neck fracture s/p right hip endoprosthesis placement * PT/OT/case management consulted. Patient has been residing at [facility] ([facility]) since discharge from here on 01/25. Suspect she will be fine to return there on discharge. Appreciate therapy recommendations. Anemia: * Hg 7.9. improved to 9.3 after transfusion (post-op). 1 unit on hold. Chronic medical conditions: ? Parkinson's disease: Stable. Continue home Sinemet. ? History of CAD with stenting, hyperlipidemia: Mildly hypotensive on admit to the 100s over 50s, improved with fluid resuscitation. Continue home aspirin and statin. ? Chronic iron deficiency anemia: Hemoglobin 9.5 on admit, was stable around 8.5-9 postoperatively in mid January. Follow-up a.m. CBC. Continue home iron supplement. ? Overactive bladder: Continue home mirabegron. ? Anxiety/depression/fibromyalgia: Continue home duloxetine. DVT prophylaxis: Lovenox. Ortho recs: a total of 2 weeks of anticoagulation followed by 2 weeks of baby aspirin twice a day. CODE STATUS: DNR-CCA, DNI Expected disposition: Likely back to SNF, TBD Medications at Discharge Home Medications acetaminophen 325 mg capsule 650 mg PO Q8H PRN fever or pain 05/01/23 atorvastatin 40 mg tablet 40 mg PO QHS hYPERLIPIDEMIA 05/01/23 polyethylene glycol 3350 17 gram/dose oral powder (ClearLax) 17 g PO DAILY PRN constipation 05/01/23 psyllium husk 3.4 gram/5.4 gram oral powder (Stacie-Mucil) 1 tbsp PO DAILY PRN CONSTIPATION 05/01/23 alendronate 70 mg tablet 70 mg PO QWEEK osteoporosis 09/27/24 duloxetine 20 mg capsule,delayed release 20 mg PO QDAY DEPRESSION 09/27/24 guaifenesin 100 mg/5 mL oral liquid 200 mg PO Q4H PRN cough 12/28/24 melatonin 3 mg capsule 3 mg PO HS sleep 12/28/24 simethicone 125 mg chewable tablet (Mylanta Gas) 125 mg PO BID PRN abdominal distention 12/28/24 ascorbic acid (vitamin C) 500 mg capsule 500 mg PO BID supplement 01/20/25 carbidopa 25 mg-levodopa 100 mg tablet (Dhivy) 1.5 tab PO TID parkinson 01/20/25 mirabegron 50 mg tablet,extended release 24 hr (Myrbetriq) 50 mg PO DAILY bladder 01/20/25 acetaminophen 500 mg tablet (Tylenol Extra Strength) 500 mg PO Q8H PRN pain 02/15/25 ferrous sulfate 325 mg (65 mg iron) tablet (FeroSul) 325 mg PO BID ANEMIA 02/15/25 acetaminophen 500 mg capsule 500 mg PO TID PAIN 02/28/25 aluminum-mag hydroxide-simethicone 400 mg-400 mg-40 mg/5 mL oral susp (Advanced Antacid-Antigas) 10 ml PO Q4H PRN indigestion, GAS, HEARTBURN, NAUSEA 02/28/25 aspirin 81 mg tablet,delayed release 81 mg PO BREAKFAST ANTICOAGULANT 02/28/25 ceramides 1,3,6-II (CeraVe Daily Moisturizing lotion) 1 applic topical DAILY DRY SKIN 02/28/25 cholecalciferol (vitamin D3) 50 mcg (2,000 unit) capsule (D3-2000) 50 mcg PO DAILY SUPPLEMENT 02/28/25 cyanocobalamin (vitamin B-12) 500 mcg tablet (Vitamin B-12) 500 mcg PO DAILY ANEMIA 02/28/25 sennosides 8.6 mg tablet (Laxative (sennosides)) 8.6 mg PO BID CONSTIPATION 02/28/25 rifampin 300 mg capsule 300 mg PO Q12H 90 days #180 caps 03/03/25 vancomycin 750 mg intravenous solution 750 mg IV Q12H 40 days #80 ea 03/03/25 metoprolol tartrate 25 mg tablet 25 mg PO BID #0 tabs 03/05/25 Hospital Course Operations - (1 component 1 stage revision complete femoral component right hip with irrigation debridement skin subcutaneous tissue fat, fascia and muscle capsule and bony tissue right thigh/hip) Procedures 2-D Echocardiogram Summary of Care Provided Hospital Course: Greater than 30-minute spent on discharge. Patient had a postoperative infection of her right hip. Showed MRSA. Seen by infectious disease and patient be discharged with several week course of rifampin and vancomycin. Patient underwent surgery on the by Dr. Tijerina. Patient has a wound VAC in place. Patient follow-up with Dr. Tijerina in 1 to 2 weeks. Patient has wound VAC in place. While she was here she developed A-fib with RVR but that did not converted to normal sinus rhythm. Patient will continue with metoprolol and anticoagulation with apixaban. Weight / BMI Weight Weight: 73.9 kg Body Mass Index (BMI) 29.7 ABG / Lab / Microbiology Data 03/05/25 06:08 03/05/25 06:08 Laboratory: Laboratory Results - last 24 hr 03/04/25 12:36: APTT 148.0 H* 03/04/25 21:24: APTT 115.7 H* 03/05/25 06:08: WBC 17.3 H, RBC 2.87 L, Hgb 7.8 L, Hct 24.4 L, MCV 85.0, MCH 27.2, MCHC 32.0, RDW Std Deviation 45.4 H, RDW Coeff of Aleena 14.6, Plt Count 425, MPV 8.8, Immature Gran % (Auto) 2.600 H, Neut % (Auto) 65.3, Lymph % (Auto) 12.9 L, Morris % (Auto) 8.0, Eos % (Auto) 11.0 H, Baso % (Auto) 0.2, Absolute Neuts (auto) 11.3 H, Absolute Lymphs (auto) 2.23, Nucleated RBC % 0, Sodium 136, Potassium 3.7, Chloride 107, Carbon Dioxide 18.1 L, Anion Gap 12, BUN 24 H, Creatinine 0.94, Estim Creat Clear Calc 42.68 L, Est GFR (MDRD) Non-Af 60, B UN/Creatinine Ratio 25.5 H, Glucose 99, Calcium 8.3 Microbiology: Microbiology 03/02/25 Unknown Tissue - Hip Gram Stain - Final 03/02/25 Unknown Tissue - Hip Wound Culture - Preliminary Staphylococcus aureus 03/02/25 Unknown Tissue - Hip Anaerobic Culture - Preliminary No growth in 48 hours. 03/02/25 Unknown Tissue - Hip Gram Stain - Final 03/02/25 Unknown Tissue - Hip Wound Culture - Final No growth aerobically. 03/02/25 Unknown Tissue - Hip Anaerobic Culture - Preliminary No growth in 48 hours. 03/02/25 Unknown Wound - Hip Gram Stain - Final 03/02/25 Unknown Wound - Hip Wound Culture - Final No growth aerobically. 03/02/25 Unknown Wound - Hip Anaerobic Culture - Preliminary No growth in 48 hours. 02/28/25 17:10 Blood Culture (Wb) - Venous Blood Culture - Preliminary No growth in 48 hours. 02/28/25 16:50 Blood Culture (Wb) - Venous Blood Culture - Preliminary No growth in 48 hours. D/C Instructions DC O2, CPAP, BIPAP Needs Home O2 Discharge instructions: No Meaningful Use Info Meaningful Use Meaningful Use Diagnoses (Choose all that apply): None applicable Discharge Plan Admission Admit Date/Time: 02/28/25 18:21 Primary Reason for Your Visit: Post op infection Attending Provider: Law Raygoza Primary Care Provider: Tressa Conn Consulting Providers: Eris Mitchell; Justice Gao; Braulio Tijerina Instructions Additional Instructions / Restrictions: Patient will be wearing wound VAC for 1 week postoperatively. Patient was educated that she is not to get her wound VAC wet and will have to sponge bathe until wound VAC is removed. May use an additional wound VAC if drainage continues following completion of the first wound VAC. Patient will be weightbearing as tolerated with walker following anterior hip precautions at this time. Discharge Orders/Prescriptions Prescriptions: New vancomycin 750 mg recon soln 750 mg IV Q12H 40 Days Qty: 80 0RF Rx Instructions: stop date 04/13/25. Dx: R hip PJI. Weekly bmp, cbc, LFT, esr, and vanc trough. Fax to [phone]. rifampin 300 mg capsule 300 mg PO Q12H 90 Days Qty: 180 0RF metoprolol tartrate 25 mg Tablet 25 mg PO BID Qty: 0 0RF Continued alendronate 70 mg tablet 70 mg PO QWEEK Patient Comments: TAKES EVERY THURSDAY duloxetine 20 mg capsule,delayed release(DR/EC) 20 mg PO QDAY guaifenesin 100 mg/5 mL liquid 200 mg PO Q4H PRN (Reason: cough) simethicone [Mylanta Gas] 125 mg tablet,chewable 125 mg PO BID PRN (Reason: abdominal distention) melatonin 3 mg capsule 3 mg PO HS acetaminophen [Tylenol Extra Strength] 500 mg tablet 500 mg PO Q8H PRN (Reason: pain) ferrous sulfate [FeroSul] 325 mg (65 mg iron) tablet 325 mg PO BID atorvastatin 40 mg tablet 40 mg PO QHS polyethylene glycol 3350 [ClearLax] 17 gram/dose powder 17 g PO DAILY PRN (Reason: constipation) Stacie-Mucil 3.4 gram/5.4 gram powder 1 tbsp PO DAILY PRN (Reason: CONSTIPATION) Rx Instructions: mix into at least 8 oz of water or juice before administering acetaminophen 325 mg capsule 650 mg PO Q8H PRN (Reason: fever or pain) carbidopa-levodopa [Dhivy] 25-100 mg tablet 1.5 tab PO TID mirabegron [Myrbetriq] 50 mg tablet extended release 24 hr 50 mg PO DAILY ascorbic acid (vitamin C) 500 mg capsule 500 mg PO BID Rx Instructions: GIVE WITH IRON acetaminophen 500 mg capsule 500 mg PO TID CeraVe Daily Moisturizing Lotion 1 applic topical DAILY cyanocobalamin (vitamin B-12) [Vitamin B-12] 500 mcg tablet 500 mcg PO DAILY alum-mag hydroxide-simeth [Advanced Antacid-Antigas] 400-400-40 mg/5 mL suspension 10 ml PO Q4H PRN (Reason: indigestion, GAS, HEARTBURN, NAUSEA) sennosides [Laxative (sennosides)] 8.6 mg tablet 8.6 mg PO BID cholecalciferol (vitamin D3) [D3-2000] 50 mcg (2,000 unit) capsule 50 mcg PO DAILY aspirin 81 mg Tablet,Delayed Release (Dr/Ec) 81 mg PO BREAKFAST Discontinued celecoxib 200 mg capsule 200 mg PO QDAY Rx Instructions: GIVE WITH FOOD carbidopa-levodopa 25-100 mg tablet 2 tab PO DAILY Rx Instructions: GIVE WITHIN 15 MINUTES OF SCHEDULED TIME. VERY IMPORTANT! tramadol 50 mg tablet 50 mg PO TID cephalexin 500 mg capsule 500 mg PO TID Rx Instructions: STARTED 02/26/2025. 03/05/25 COMPLETION DATE tramadol 50 mg tablet 50 mg PO DAILY PRN (Reason: pain) Referrals / Follow Up: [facility] [Provider Group] - Within 1 Month Tressa Conn MD [Primary Care Provider, Internal Medicine] - Within 2 Weeks Braulio Tijerina MD [Med Staff - Active Staff, Orthopedics] - Within 2 Weeks Tressa Rosales [[facility], [facility]] Disposition Disposition (needs filled in before D/C Order can be placed): [facility] Charges/Coding Visit Charges Inpatient E&M: 82741 Disch Hosp >30min
[2025-03-05] MEDS: 0.9% Saline Lock 10 ML Syringe IV (14:26)
[2025-03-05 14:29] VITALS: BP 133/59; PULSE 65; RESP 16; TEMP 36.7; O2SAT 100
== END 2025-03-05 15:08 | disposition skilled nursing facility (03) | DRG 468 ==
LOC: ED 18:35 → MS3 18:56 → PCU 03-04 04:14
PROVIDERS: Internal Medicine; Specialist; Admitting Provider Hospitalist; Emergency Provider Surgery; PCP Internal Medicine Geriatric Medicine
PROC: 0SPR0JZ Removal of Synthetic Substitute from Right Hip Joint, Femoral Surface, Open Approach (ICD-10-PCS; CPT 27125; principal; 2025-03-02 15:40)
DX: T84.51XA Infection and inflammatory reaction due to internal right hip prosthesis, initial encounter (principal); B95.62 Methicillin resistant Staphylococcus aureus infection as the cause of diseases classified elsewhere; Z66 Do not resuscitate; G20.A1 Parkinson's disease without dyskinesia, without mention of fluctuations; D50.9 Iron deficiency anemia, unspecified; F32.A Depression, unspecified; I10 Essential (primary) hypertension; I48.91 Unspecified atrial fibrillation; I25.10 Atherosclerotic heart disease of native coronary artery without angina pectoris; F41.9 Anxiety disorder, unspecified; M79.7 Fibromyalgia; E78.5 Hyperlipidemia, unspecified; S62.344A Nondisplaced fracture of base of fourth metacarpal bone, right hand, initial encounter for closed fracture; N32.81 Overactive bladder; X58.XXXA Exposure to other specified factors, initial encounter; Z96.641 Presence of right artificial hip joint; Z79.1 Long term (current) use of non-steroidal anti-inflammatories (NSAID); Z95.5 Presence of coronary angioplasty implant and graft; Z79.82 Long term (current) use of aspirin; Z79.83 Long term (current) use of bisphosphonates; Z79.899 Other long term (current) drug therapy; Z87.891 Personal history of nicotine dependence
CPT/HCPCS: 36415; 36569; 71275; 73502; 76000; 80048; 80076; 80202; 83605; 85025; 85027; 85610; 85730; 86850; 86900; 86901; 87015; 87040; 87070; 87075; 87077; 87102; 87116; 87186; 87205; 87206; 93005; 94668; 97116; 97162; 97167; 97530; 97535; 99285; C1776; P9016; Q9967; A4216; J2405

== ENCOUNTER → 2025-02-28 | Outpatient (CLI) | payer MEDICARE, MEDICAID, SELFPAY ==
--- OUTSIDE RECORDS SUMMARY | 2025-02-28 19:34 | XMS RPT_ITS | CCD ---
Author Organization [facility] Care Team Providers Care Tanning Wheel Operator Name Role Phone Unavailable Primary Care Provider Minesh Arreguin AMBULATORY CARE NURSE.RESIDUE FURNACE OPERATOR, Alexandra L Primary Care Provide r Rodríguez WELDER SETTER RESISTANCE MACHINE, WELDER SETTER RESISTANCE MACHINE-C Alexandra Primary Care Provider Rodríguez WELDER SETTER RESISTANCE MACHINE, WELDER SETTER RESISTANCE MACHINE-C Alexandra Referring Provider Dr. Danielle Vernon Attending Provider Dr. Law Gold Emergency Provider Dr. Jasmin Steele Admit Provider Dr. Jasmin Steele Other Provider Dr. Davian Grier Other Provider [phone] Dr. Darline Lundy Attending Provider Dr. Darline Lundy Other Provider Dr. Jaylon Boone Attending Provider Rodríguez WELDER SETTER RESISTANCE MACHINE, WELDER SETTER RESISTANCE MACHINE-C Alexandra Primary Care Provider Dr. Law Gold Emergency Provider Dr. Jasmin Steele Admit Provider Dr. Jasmin Steele Other Provider Dr. Davian Grier Other Provider Dr. Darline Lundy Attending Provider Dr. Darline Lundy Other Provider Dr. Jaylon Boone Attending Provider Rodríguez STEWART.RESIDUE FURNACE OPERATOR, Alexandra L Primary Care Provide r TAI, DIDI Referring Unavailable ARREGUIN, ALEXANDRA L Primary Care Unavailable TAI, DIDI Referring Unavailable ARREGUIN, ALEXANDRA L Primary Care Unavailable TAI, DIDI Referring Unavailable ARREGUIN, ALEXANDRA L Primary Care Unavailable PROVIDER, UNKNOWN Referring Unavailable ARREGUIN, ALEXANDRA L Primary Care Unavailable Arreguin WELDER SETTER RESISTANCE MACHINE-C, Alexanrda Primary Care Provider Arreguin WELDER SETTER RESISTANCE MACHINE-C, Alexandra Referring Provider Saulo DEL RIO, Dr. Santos Attending Provider Tai WELDER SETTER RESISTANCE MACHINE-C, Didi Attending Provider Tai WELDER SETTER RESISTANCE MACHINE-C, Didi Referring Provider Bobby OLS, [facility] Primary Care Provider Shavonne vailable Tai WELDER SETTER RESISTANCE MACHINE-C, Didi Attending Provider Tai WELDER SETTER RESISTANCE MACHINE-C, Didi Referring Provider Bobby OLS, Tressa Primary Care Provider Shavonne vailable Bobby HALL, [facility] Referring Provider Dr. Danielle Arciniega MD Attending Provider Bobby HALL, Tressa Primary Care Provider Shavonne vailaDr. Danielle Phillips MD Referring Provider Dr. Danielle Vernon MD Other Provider Bobby HALL [facility] Primary Care Physician Un available Saulo DEL RIO, Dr. Santos Attending Physician Dr. Danielle Vernon MD Nurse Practitioner Anjelica DEL RIO, Dr. Ibrahim Attending Physician ARREGUIN, ALEXANDRA L Primary Care Unavailable ANDRAPALLIYAL, ARMEN Referring Unavailabl e ARREGUIN, ALEXANDRA L Primary Care Unavailable EM FLYNN Referring Unavailable ANDRAARMEN BALL Attending Unavailabl e ARREGUIN, ALEXANDRA L Primary Care Unavailable EM FLYNN Referring Unavailable EM FLYNN Attending Unavailable ARREGUIN, ALEXANDRA L Primary Care Unavailable RUSSEL MAURER Attending Unavailable Bobby ISABEL, Tressa Primary Care Physician Un available Saulo MD, Dr. Santos Attending Physician Bobby OLS, Tressa Referring Provider Unavai filiberto Martel DO, Dr. Rothman Admitting Physician Shavonne vailable Martel DO, Dr. Rothman Nurse Practitioner Unav ailable Lilliana DEL RIO, Dr. Ramsey Nurse Practitioner [phone] Robin DEL RIO, Dr. Davian Richards Attending Physician Kamron DEL RIO, Dr. Gregorio Nurse Practitioner [phone] Martel DO, Dr. Rothman Attending Physician Shavonne vailable Robin DEL RIO, Dr. Davian Richards Nurse Practitioner Davian Kelly Attending Unavailable Braulio Tijerina Consulting Unavailable Bobby OLS, Tressa Primary Care Unavailab Stephan Urrutia Admitting Unavailable Stephan Martel Consulting Unavailable Darline Lundy Consulting Unavailable Davian Kelly Consulting Unavailable Tai WELDER SETTER RESISTANCE MACHINE, Didi Referring Unavailable Tai WELDER SETTER RESISTANCE MACHINE, Didi Attending Unavailable Bobby OLS, Tressa Primary Care Unavailab le SauloDanielle Referring Unavailable Danielle Vernon Attending Unavailable Bobby OLS, Tressa Primary Care Unavailab Davian Bowles Attending Unavailable Stephan Martel Admitting Unavailable Braulio Tijerina Consulting Unavailable Bobby OLS, Tressa Primary Care Unavailab Stephan Urrutia Consulting Unavailable Darline Lundy Consulting Unavailable Bobby OLS, Tressa Primary Care Unavailab le Bobby OLS, Tressa Referring Unavailab Alexandria Prado Attending Unavailable SauloDanielle Attending Unavailable Rodríguez WELDER SETTER RESISTANCE MACHINE, Alexandra Primary Care Unavailable Rodríguez WELDER SETTER RESISTANCE MACHINE, Alexandra Referring Unavailable Danielle Vernon Attending Unavailable Bobby OLS, Tressa Referring Unavailab le Bobby OLS, Tressa Primary Care Unavailab le Bobby OLS, Tressa Referring Unavailab le Bobby OLS, Tressa Primary Care Unavailab Alexandria Prado Attending Unavailable Stephan Martel Attending Unavailable SauloDanielle Attending Unavailable Bobby OLS, Tressa Primary [facility] Unavailab le Danielle Vernon Consulting Unavailable Danielle Vernon Referring Unavailable Danielle Vernon Attending Unavailable Tressa Alan Primary [facility] Unavailab le Allergies Allergy Classification Reported Allergen(s) Allergy Type Date of Onset Reaction(s) Facility Acetaminophen / oxyCODONE (1 source) Acetaminophen / oxyCODONE; Translations: [OXYCODONE-ACETAM INOPHEN] Drug Allergy 3 [facility] (20 sources) Acetaminophen / oxyCODONE; Translations: [OXYCODONE-ACETAM INOPHEN] Drug Allergy 3 Rash, Itching [facility] (8 sources) oxyCODONE Drug Allergy 3 [facility] (4 sources) ARIPiprazole; Translations: [ARIPIPRAZOLE] Drug Allergy 5 [facility] (4 sources) Haloperidol; Translations: [HALOPERIDOL] Drug Allergy 5 [facility] (4 sources) Metoclopramide; Translations: [METOCLOPRAMIDE] Drug Allergy 5 [facility] (4 sources) Prochlorperazine; Translations: [PROCHLORPERAZINE ] Drug Allergy 5 [facility] (4 sources) Promethazine; Translations: [PROMETHAZINE] Drug Allergy 5 [facility] (1 source) OLANZapine; Translations: [OLANZAPINE] Drug Allergy 5 [facility] (1 source) oxyCODONE Drug Allergy 5 [facility] Rep[facility] Medications Current Medications Medication Drug Class(es) Dates Sig (Normalized) Sig (Original) acetaminophen 500 mg oral capsule (20 sources) Start: 05-01-2023 Acetaminophen 500 mg cap Take by mouth. 05/01/2023 Active Start: 05-01-2023 acetaminophen 325 mg cap Take by mouth. 0 05/01/2023 Active Start: 05-01-2023 take 2 capsules by m outh every six hours as needed for pain Start: 05-01-2023 take 650 mg by mouth every six hours Acetaminophen Active 650 MG PO EVERY 6 HOURS May 01, 2023 12:00am Comment on above: Take by mouth. alendronic acid 70 mg oral tablet (19 sources) Bisphosphonate Start: 09-27-2024 take 1 tablet by ibis th every week Start: 09-16-2023 End: 03-16-2024 take 1 tablet by mouth every week Alendronate 70 mg tablet Discontinued 70 mg PO EVERY WEEK September 16, 2023 12:00am March 16, 2024 10:31am ascorbic acid 500 mg oral capsule (20 sources) Vitamin C Start: 01-20-2025 take 1 capsule by mo [facility] once daily Start: 05-01-2023 End: 03-16-2024 take 1 tablet by mouth twice daily Ascorbic Acid (Vitamin C) (C-500) 500 mg tablet Discontinued 500 mg PO TWICE A DAY May 01, 2023 1:00am March 16, 2024 10:31am Comment on above: [facility] aspirin 81 mg delayed releas e oral tablet (20 sources) Platelet Aggregation Inhibitor, Nonsteroidal Anti-inflammatory Drug Start: 02-25-2022 End: 01-25-2025 Comment on above: Take 81 mg by mouth once daily. carbidopa 25 mg / levodopa 100 mg oral tablet (20 sources) Aromatic Amino Acid Decarboxylation Inhibitor, Aromatic Amino Acid Start: 01-20-2025 Start: 09-27-2024 Start: 09-27-2024 Carbidopa-Levo dopa 25-100 mg tablet Active {tbl} PO September 27, 2024 12:00am Complies with drug therapy Start: 12-29-2022 End: 03-16-2024 Carbidopa-Levodopa 25-100 mg [...] Start: 12-29-2022 take 2 tablets by mo [facility] three times daily Carbidopa-Levodopa Active 2 TABLET [...] Discontinued 1.5 {tbl} PO .qid 540 90 3 April 25, 2022 7:14pm December 29, 2022 [...] Comment on above: Take 1 tablet by [facility] four times daily. Take 4 tablets daily. Take 1.5 tablets at 8a, 1.5 tablets at 12p, 1.5 tablets at 4p and 1.5 tablets at 8p. Take 2 tablet daily at 8AM, 2 tablet daily at 12PM, 2 tablet daily at 4PM, and 1.5 tablet daily at 8PM. celecoxib 200 mg oral capsule (7 sources) Nonsteroidal Anti-inflammatory Drug Start: 09-27-2024 take 1 capsule by mouth once daily Start: 12-23-2023 celecoxib (SOLE EBREX) 200 mg capsule 12/23/2023 Active Ceramides 1,3,6-11 (CERAVE D AILY MOISTURIZING) lotn (9 sources) Ceramides 1,3,6- 11 (CERAVE DAILY MOISTURIZING) lotn Apply to affected area. Active Ceramides 1,3,6- 11 (CERAVE DAILY MOISTURIZING) lotn Apply to affected area. 0 Active cholecalciferol 0.05 mg oral capsule (15 sources) Vitamin D Start: 01-20-2025 take 1 capsule by mo ut once daily Start: 02-25-2022 End: 01-20-2025 take 1 capsule by mouth once daily Cholecalciferol (Vitamin D3) 25 mcg (1,000 unit) capsule Discontinued 25 ug PO DAILY September 16, 2023 12:00am January 20, 2025 1:12am cholecalciferol, vitamin D3, (VITAMIN D3 ORAL) (20 sources) cholecalciferol, vitamin D3, (VITAMIN D3 ORAL) Take by mouth once daily. Active cholecalciferol, vitamin D3, (VITAMIN D3 ORAL) Take by mouth once daily. 0 Active Comment on above: Take by mouth once d aily. DULoxetine 20 mg delayed release oral capsule (20 sources) Serotonin and Norepinephrine Reuptake Inhibitor Start: 09-27-2024 take 1 capsule by mouth once daily Start: 01-19-2023 End: 07-06-2023 DULoxetine (CYMBALTA) 20 [...] above: 2 capsules once omega y. guaiFENesin 20 mg/ml oral solution (4 sources) Start: 12-28-2024 take 200 mg by mouth every four hours as needed for cough GUAIFENESIN ORAL Take by mouth. Active mag hydrox/aluminum hyd/simeth (MYLANTA DOUBLE-STRENGTH ORAL) (2 sources) mag hydrox/alumi num hyd/simeth (MYLANTA DOUBLE-STRENGTH ORAL) Take by mouth. Active melatonin 3 mg oral capsule (2 sources) Start: 12-29-19 take 1 capsule by mouth at bedtime as needed for sleep 24 hr mirabegron 50 mg extended release oral tablet (20 sources) beta3-Adrenergi c Agonist Start: 01-21-20 take 1 tablet by mouth once daily Start: 09-27-2024 End: 01-20-2025 take 1 tablet by mouth once daily Mirabegron (Myrbetriq) 25 mg tablet extended release 24 hr Discontinued 50 mg PO daily September 27, 2024 12:00am January 20, 2025 1:41am Start: 09-27-2024 take 1 tablet by ibis th once daily Mirabegron (Myrbetriq) 25 mg tablet extended release 24 hr Active 25 mg PO daily September 27, 2024 12:00am Complies with drug therapy Start: 06-27-2023 End: 03-16-2024 take 1 tablet by mouth once daily Mirabegron 25 mg tablet extended release 24 hr Discontinued 25 mg PO DAILY September 16, 2023 12:00am March 16, 2024 10:32am Comment on above: 1 tablet once daily. Nirmatrelvir-Ritonavir (1 source) Start: 01-20-2025 polyethylene glycol 3350 170 00 mg powder for oral solution (20 sources) Osmotic Laxative Start: 05-01-2023 Comment on above: Take by mouth. psyllium 3400 mg powder for oral suspension (6 sources) Start: 05-01-2023 Start: 05-01-2023 Psyllium Husk (Stacie-Mucil) 3.4 gram/5.4 [...] Active Comment on above: Take by mouth. rivaroxaban 10 mg oral tablet (1 source) Factor Xa Inhibitor Start: 01-25-2025 take 1 tablet by mouth once daily Senna-Docusate Sodium (1 source) Start: 05-01-2023 take 1 capsule by mouth twice daily Senna-Docusate Sodium Active 1 CAP PO TWICE A DAY May 01, 2023 12:00am simethicone 125 mg chewable tablet (2 sources) Start: 12-28-2024 traMADol hydrochloride 50 mg oral tablet (20 sources) Opioid Agonist Start: 09-27-2024 take 1 tablet by mouth three times daily as needed for pain Start: 06-26-2023 End: 03-16-2024 take 1 tablet [...] 1:00am March 16, 2024 10:32am vitamin b12 5 mg oral capsule (20 sources) Vitamin B12 Start: 01-20-2025 take 1 capsule by mo [facility] once daily Start: 12-28-2024 End: 01-20-2025 Mecobalamin (Vitamin B12) 50 0 mcg tablet,chewable Discontinued ug PO December 28, 2024 12:00am January 20, 2025 1:12am Start: 07-06-2023 take 1 tablet by ibis th once daily cyanocobalamin (VITAMIN B-12) 500 mcg tablet Take 1 tablet by mouth once daily. 07/06/2023 Active Comment on above: Take 1 tablet by ibis th once daily. Completed/Discontinued Medications Medication Drug Class(es) Dates Sig (Normalized) Sig (Original) amLODIPine 10 mg oral tablet (5 sources) Dihydropyridine Calcium Channel Duncan Start: 03-16-2024 End: 12-28-2024 take 1 tablet by mouth once daily Amlodipine 10 mg tablet Discontinued 10 mg PO daily March 16, 2024 1:00am December 28, 2024 1:00pm atorvastatin 40 mg oral tablet (20 sources) [...] (2.5 mg/mL) 4 mL injection (SENSORCAINE MPF) calcium ascorbate 500 mg oral tablet (2 sources) Start: 12-28-2024 End: 01-20-2025 take 1 tablet by mouth once daily Ascorbate Calcium (Vitamin C) 500 mg tablet Discontinued 500 mg PO daily December 28, 2024 12:00am January 20, 2025 1:07am carvedilol 3.125 mg oral tablet (20 sources) alpha-Adrenergic Duncan, beta-Adrenergic Duncan Start: 07-31-2022 End: 09-29-2023 take 1 tablet by mouth twice daily at mealtime Carvedilol 3.125 mg tablet Discontinued 3.125 mg PO TWICE A DAY 60 July 31, 2022 11:42am February 06, 2023 2:08pm must administer with a meal/food Comment on above: Take 3.125 mg by ibis twice daily with meals. cephalexin 500 mg oral capsule (8 sources) Cephalosporin Antibacterial Start: 07-10-2022 End: 07-20-2022 take 1 capsule by mouth twice daily Cephalexin 500 mg capsule Discontinued 500 mg PO TWICE A DAY 20 July 10, 2022 12:00am July 19, 2022 12:00am July 20, 2022 12:04am clopidogrel 75 mg oral tablet (20 sources) P2Y12 Platelet Inhibitor Start: 02-24-2022 End: 09-29-2023 take 1 tablet by mouth once daily Clopidogrel (Plavix) 75 mg tablet Discontinued 75 mg PO DAILY 90 3 April 25, 2022 7:14pm September 16, 2023 2:56pm Comment on above: Take 75 mg by mouth once daily. 1 ml denosumab 60 mg/ml prefilled syringe (5 sources) RANK Ligand Inhibitor Start: 03-16-2024 End: [...] by mouth. escitalopram 5 mg oral tablet (17 sources) Serotonin Reuptake Inhibitor Start: 05-01-2023 End: [...] above: Take 1 tablet by ibis th once daily. ferrous sulfate 325 mg oral tablet (20 sources) Start: 05-01-2023 End: 06-28-2024 take 1 tablet by mouth twice daily Ferrous Sulfate (Feosol) 325 mg (65 mg iron) tablet Discontinued 325 mg PO TWICE A DAY May 01, 2023 1:00am March 16, 2024 10:32am Comment on above: Take by mouth. 24 hr fesoterodine fumarate 4 mg extended release oral tablet (20 sources) Start: 07-31-2022 End: 09-16-2023 take 1 [...] nce daily. furosemide 40 mg oral tablet (8 sources) Loop Diuretic Start: 04-25-19 End: 08-01-19 take 1 tablet by mouth once daily Furosemide 40 mg tablet Discontinued 40 mg PO DAILY 20 April 25, 2022 1:00am July 31, 2022 11:03am hydrOXYzine hydrochloride 25 mg oral tablet (10 sources) Antihistamine Start: 03-16-20 End: 12-29-19 take 1 tablet by mouth at bedtime Hydroxyzine Hcl 25 mg tablet Discontinued 25 mg PO AT BEDTIME March 16, 2024 1:00am December 28, 2024 1:04pm losartan potassium 25 mg oral tablet (20 sources) Angiotensin 2 Receptor Duncan Start: 12-30-19 End: 06-29-19 take 1 tablet by mouth once daily Losartan 25 mg tablet Discontinued 25 mg PO DAILY December 29, 2022 12:00am March 16, 2024 10:32am Comment on above: Take 1 tablet by ibis th every afternoon. mecobalamin 1 mg chewable tablet (6 sources) Start: 05-01-19 End: 09-16-19 Mecobalamin (Vitamin B12) 1,000 mcg tablet,chewable Discontinued 500 ug PO DAILY May 01, 2023 1:00am September 16, 2023 2:57pm Start: 05-01-2023 take 500 ug by mouth once omega y Mecobalamin (Vitamin B12) Active 500 MCG PO DAILY May 01, 2023 12:00am meloxicam 15 mg oral tablet (5 sources) Nonsteroidal Anti-inflammatory Drug Start: 03-16-2024 End: [...] 0.5 tablets two time s a day. nitrofurantoin, macrocrystals 100 mg oral capsule (5 sources) Nitrofuran Antibacterial Start: End: take 1 capsule by mouth at mealtime Nitrofurantoin Macrocrystal 100 mg capsule Discontinued 100 mg PO AT BEDTIME March 16, 2024 1:00am December 28, 2024 1:04pm must administer with a meal/food pantoprazole 20 mg delayed release oral tablet (6 sources) Proton Pump Inhibitor Start: End: take 1 tablet by mouth once daily Pantoprazole 20 mg tablet,delayed release (DR/EC) Discontinued 20 mg PO DAILY May 01, 2023 1:00am September 16, 2023 2:55pm Senna-Docusate Sodium capsule (5 sources) Start: End: Senna-Docusate Sodium capsule Discontinued 1 NMA PO TWICE A DAY May 01, 2023 1:00am January 20, 2025 1:05am Start: 05-01-2023 Senna-Docusate Sodium capsule Active 1 NMA PO TWICE A DAY May 01, 2023 1:00am Complies with drug therapy Start: 05-01-2023 Senna-Docusate Sodium capsule Active 1 NMA PO TWICE A DAY May 01, 2023 1:00am Start: 05-01-2023 Senna-Docusate Sodium capsule Active 1 NMA PO TWICE A DAY May 01, 2023 12:00am sertraline 25 mg oral tablet (5 sources) Serotonin Reuptake Inhibitor Start: 03-16-2024 End: 09-27-2024 take 3 tablets by mouth once daily Sertraline 25 mg tablet Discontinued 75 mg PO daily March 16, 2024 1:00am September 27, 2024 11:20am traZODone hydrochloride 50 mg oral tablet (9 sources) Serotonin Reuptake Inhibitor Start: 02-25-2022 End: 09-16-2023 take 1 tablet by mouth at bedtime as needed for sleep Trazodone 50 mg tablet Discontinued 50 mg PO AT BEDTIME as needed for sleep February 25, 2022 1:00am September 16, 2023 3:39pm 1 ml triamcinolone acetonide 40 mg/ml injection (2 sources) Corticosteroid Start: 10-02-2023 End: 10-02-2023 triamcinolone acetonide 80 mg injection (KeNALog 40) Vibegron (8 sources) Start: 04-25-2022 End: 07-10-2022 take 1 tablet [...] 10, 2022 7:55pm Vitamin B Complex tablet (5 sources) Start: 09-16-2023 End: 03-16-2024 Vitamin B [...] reveals residual T wave inversion from recent [place] Coronary atherosclerosis and other heart disease (20 sources) Coronary arteriosclerosis; Translations: [Atherosclerotic heart disease of [place] coronary artery without angina pectoris] Onset: 07-31-2022 10-09-2022 Chronic Coronary atherosclerosis and other heart disease (20 sources) Stented coronary artery; Translations: [Presence of coronary angioplasty implant and graft] Onset: 12-12-2021 07-25-2022 Episodic Comment on above: PTCA/FLOYD Mid-distal RCA-PCI/FLOYD 2.70b68df @ [facility] 12/22/21; Prox/distal RCA 2.5x30mm and 2.5x12mm @ [facility] [place], [place] 12/20/09 Disorders of lipid metabolism (20 sources) Hyperlipidemia; [...] for closed fracture] Onset: 02-06-2023 02-01-2023 Episodic Fracture of upper limb (7 sources) Nondisplaced fracture of base of fourth metacarpal bone, right hand, initial encounter for open fracture; Translations: [Closed fracture of base of right fourth metacarpal] Onset: 01-19-2025 01-20-2025 Episodic Genitourinary symptoms and ill-defined conditions (5 sources) Urge incontinence of urine; Translations: [Urge incontinence] Onset: 12-28-2024 12-28-2024 Chronic Genitourinary symptoms and ill-defined conditions (20 sources) Urgent desire to urinate; Translations: [Urgency of urination] Onset: 10-09-2022 10-09-2022 Episodic Gout and other crystal arthropathies (20 sources) Gout; Translations: [Gout, unspecified] Onset: 03-31-2022 10-09-2022 Chronic Heart valve disorders (20 sources) Tricuspid incompetence, non-rheumatic ; Translations: [Nonrheumatic tricuspid (valve) insufficiency] Onset: 07-31-2022 10-09-2022 Chronic Comment on above: Mild per ECHO [facility] Intracranial injury (20 sources) Concussion injury of body structure; Translations: [Concussion] Onset: 08-27-2023 05-01-2023 Episodic Malaise and fatigue (5 sources) Fatigue; Translations: [Other fatigue] 09-16-2023 Episodic [...] of bladder] Onset: 10-09-2022 10-09-2022 Chronic Other diseases of bladder and urethra (4 sources) Overactive bladder; Translations: [Overactive bladder] 12-28-2024 Chronic Other gastrointestinal disorders (5 sources) Dysphagia; Translations: [Dysphagia, unspecified] 07-06-2023 Episodic Other injuries and conditions due to external causes (20 sources) Closed injury of head; Translations: [Unspecified injury of head, initial encounter] Onset: 08-27-2023 02-01-2023 Episodic Other injuries and conditions due to external causes (2 sources) Unspecified injury of head, initial encounter; Translations: [Head injury, unspecified] 02-01-2023 Episodic Other nervous system disorders (1 source) Other chronic pain; Translations: [Chronic left shoulder pain] Onset: 09-29-2023 Chronic Other nervous system disorders (20 sources) H/O: brain disorder; Translations: [Personal history of other diseases of the nervous system and sense organs] Onset: 08-27-2023 02-01-2023 Episodic Other nervous system disorders (4 sources) Personal history of other diseases of the nervous system and sense organs; Translations: [Personal history of other disorders of nervous system and sense organs] Onset: 01-25-2025 02-01-2023 Episodic Other nervous system disorders (1 source) Paresthesia of upper limb; Translations: [Anesthesia of skin] 07-06-2023 Episodic Other nervous system disorders (3 sources) Paresthesia of foot ; Translations: [Anesthesia of skin] 06-28-2024 Episodic Other nervous system disorders (1 source) Paresthesia of hand 06-28-2024 Episodic Other non-traumatic joint disorders (3 sources) Pain in left shoulder; Translations: [Pain in joint, shoulder region] Onset: 09-29-2023 08-27-2023 Episodic Other non-traumatic joint disorders (1 source) Pain in elbow; Translations: [Pain in left elbow] 08-27-2023 Episodic Other non-traumatic joint disorders (2 sources) Chronic pain of left upper limb; Translations: [Pain in left shoulder] 09-14-2023 Episodic Other non-traumatic joint disorders (5 sources) Hip pain; Translations: [Pain in left hip] 09-25-2023 Episodic Other nutritional; endocrine; and metabolic disorders (2 sources) Obese class I; Translations: [Class 1 obesity] 01-20-2025 Chronic Other screening for suspected conditions (not mental [...] Spondylosis; intervertebral disc disorders; other back problems (2 sources) Prolapsed cervical intervertebral disc; Translations: [Other cervical disc displacement, unspecified cervical region] 08-03-2023 Chronic Superficial injury; contusion (4 sources) Contusion of scalp, initial encounter; Translations: [Hematoma of scalp] Onset: 01-19-2025 01-20-2025 Episodic Unclassified (1 source) Obesity, class 1; Translations: [Obesity, class 1] Onset: 01-25-2025 Viral infection (2 sources) Disease caused by 2019-nCoV; Translations: [COVID-19] 01-20-2025 Episodic Viral infection (1 source) COVID-19; Translations: [COVID-19] Onset: 01-25-2025 Past or Other Problems Problem Classification Problem Date Documented Da te Episodic/Chronic Biliary tract disease (1 source) Other specified diseases of gallbladder; Translations: [Other specified diseases of gallbladder] Onset: 06-17-2024 Episodic Other nervous system disorders (1 source) Anesthesia of skin; Translations: [Numbness and tingling of both feet] Onset: 07-29-2024 Episodic Other nervous system disorders (1 source) Paresthesia of skin; Translations: [Numbness and tingling of both feet] Onset: 07-29-2024 Episodic Results Test Name Value Interpretation Reference Range Facility MR/Beau 02-15-2025 MR/BOUBACAR [facility] [address], [address] [place] [address] OFFICE VISIT Date of Service: 02/15/25 MR#: [id number] Acct: [id number] Name: MONISHA COHN Rep #: [id number] : 1940 Provider: Dr. Alexandria Lion i, MD Age/Sex: 84/F [place] [facility] [place]: Signed Intake Vital Signs 12/28/24 13:11 01/20/25 01:17 02/15/25 09:47 Height 5 ft 2 in 5 ft 2 in 5 ft 2 in Weight: 166 lb 14 oz BMI 30.5 BP 130/75 H Pulse 75 Intake Visit Reasons: 4wk MED F/U Chief Complaint: myrbetriq follow up [employer] Required: No Accompanied by: health aid Is patient in pain?: Yes (hip pain ) Pain scale (1-10): 6 Allergies oxycodone (From Percocet) Allergy (Severe, Verified 02/15/25 09:49) Hives Medications ???Medication ???Instructions ???Recorded ???Confirmed ???Type acetaminophen 325 mg capsule 650 mg PO Q6H PRN fever or pain 02/15/25 History atorvastatin 40 mg tablet 40 mg PO QHS hld 05/01/23 02/15/25 History polyethylene glycol 3350 17 17 g PO DAILY 05/01/23 02/15/25 Hi story gram/dose oral powder (ClearLax) psyllium husk 3.4 gram/5.4 gram 1 tbsp PO DAILY 05/01/23 02/15/25 History oral powder (Stacie-Mucil) alendronate 70 mg tablet 70 mg PO QWEEK osteoporosis 02/15/25 History carbidopa 25 mg-levodopa 100 mg 2 tab PO DAILY parkinson 09/27/24 02/15/25 History tablet celecoxib 200 mg capsule 200 mg PO QDAY 09/27/24 02/15/25 H istory duloxetine 20 mg capsule,delayed 20 mg PO QDAY 09/27/24 02/15/25 Hi story release tramadol 50 mg tablet 50 mg PO TID PRN pain 09/27/2409/04 History guaifenesin 100 mg/5 mL oral liquid 200 mg PO Q4H PRN cough 5 02/15/25 History melatonin 3 mg capsule 3 mg PO HS PRN sleep 12/28/24 1109/04 History simethicone 125 mg chewable tablet 125 mg PO QD-BID PRN abdominal 0 12/28/24 02/15/25 History (Mylanta Gas) distention ascorbic acid (vitamin C) 500 mg 500 mg PO DAILY supplement 5 02/15/25 History capsule carbidopa 25 mg-levodopa 100 mg 1.5 tab PO TID parkinson 01/20/25 02/15/25 History tablet (Dhivy) cholecalciferol (vitamin D3) 50 50 mcg PO DAILY supplement 02/15/25 History mcg (2,000 unit) capsule cyanocobalamin (vitamin B-12) 5,000 mcg PO DAILY supplement 01/1102/15/25 History 5,000 mcg capsule mirabegron 50 mg tablet,extended 50 mg PO DAILY bladder 01/20/25 History release 24 hr (Myrbetriq) aspirin 81 mg tablet,delayed 81 mg PO BREAKFAST #0 tabs 5 02/15/25 Rx release acetaminophen 500 mg tablet 500 mg PO Q6H PRN 02/15/25 5 History (Tylenol Extra Strength) ferrous sulfate 325 mg (65 mg 325 mg PO QDAY 02/15/25 02/15/25 H istory iron) tablet (FeroSul) Have you fallen in the past year?: Yes (fell and fractured hip and wrist) Nurse's Note: patient is unable to leave a sample at this time, her hip is broken and is afraid to stand on her own. [facility] Medical History Nocturia Urge incontinence Overactive bladder Former tobacco use Depression Hypertension Fall [facility] (closed head injury) Presence of stent in coronary artery ( 12/22/21) Atherosclerotic heart disease of [place] coronary artery without angina pectoris ST elevation myocardial infarction (STEMI) of inferior wall ( 12/22/21) Essential (primary) hypertension Parkinsons disease Urgency of urination Gout Cardiogenic shock Non-rheumatic mitral regurgitation Non-rheumatic tricuspid valve insufficiency Pulmonary hypertension Emphysema with chronic bronchitis Fibromyalgia Hyperlipidemia CAD (coronary artery disease) Bladder spasms Edema, lower extremity Myocardial infarction Surgical History S/P appendectomy History of hysterectomy History of ankle surgery Presence of coronary angioplasty implant and graft Family History Father Heart disease Social History household members: friend(s) Smoking Status: Former smoker pack-years: 30 Tobacco: How many years used: 30 how long ago did patient quit smoking: Quit 20+ years prior. alcohol intake: current alcohol intake frequency: holidays/special occasions only substance use type: does not use caffeine: Yes Type: coffee Number of servings: 2 HPI HPI Urology Chief Complaint: myrbetriq follow up Details: MONISHA COHN, is a 84 F. She is here for medication follow up. She has been taking Myrbetriq 50mg daily. She has fallen and broken her hip and right hand since the last visit. She forgot to put the brakes on her roller... She is not having side effects from the medication. It has si (more content not included)... Normal [facility] Basic Metabolic Profile (BMP )on 01-27-2025 BUN Normal 07-30 [facility] Comment on above: Result Comment: Supa eubanks via OM: Ordered Performed By: #### L 503.0106, BTS, L500.4050, L100.0100, L501.9520 #### [facility] [address] [place], [address] BUN/CRE Normal 01-30 [facility] Comment on above: Result Comment: Supa eubanks via OM: Ordered Performed By: #### L 503.0106, BTS, L500.4050, L100.0100, [id number] #### [facility] [address] [place], [address] Calcium Normal 7.6-11.0 [facility] Comment on above: Result Comment: Canc elled via OM: MD Ordered Performed By: #### L 503.0106, BTS, L500.4050, L100.0100, [id number] #### [facility] [address] [place], [address] CL Normal 98-108 [facility] Comment on above: Result Comment: Canc elled via OM: MD Ordered Performed By: #### L 503.0106, BTS, L500.4050, L100.0100, [id number] #### [facility] [address] [place], [address] CO2 Normal 21.0-32.0 [facility] Comment on above: Result Comment: Canc elled via OM: MD Ordered Performed By: #### L 503.0106, BTS, L500.4050, L100.0100, [id number] #### [facility] [address] [place], [address] CREAT,SERUM Normal 0.70-1.20 [facility] Comment on above: Result Comment: Canc elled via OM: MD Ordered Performed By: #### L 503.0106, BTS, L500.4050, L100.0100, [id number] #### [facility] [address] [place], [address] eGFR Normal >60 [facility] Comment on above: Result Comment: Canc elled via OM: MD Ordered Performed By: #### L 503.0106, BTS, L500.4050, L100.0100, [id number] #### [facility] [address] [place], [address] GAP Normal 5-15 [facility] Comment on above: Result Comment: Canc elled via OM: MD Ordered Performed By: #### L 503.0106, BTS, L500.4050, L100.0100, [id number] #### [facility] [address] [place], [address] GLU Normal 70-99 [facility] Comment on above: Result Comment: Canc elled via OM: MD Ordered Performed By: #### L 503.0106, BTS, L500.4050, L100.0100, [id number] #### [facility] [address] [place], [address] Potassium Normal 3.3-5.1 [facility] Comment on above: Result Comment: Canc elled via OM: MD Ordered Performed By: #### L 503.0106, BTS, L500.4050, L100.0100, [id number] #### [facility] [address] [place], [address] Basic Metabolic Profile (BMP) Normal 133-145 [facility] Comment on above: Result Comment: Canc elled via OM: MD Ordered Performed By: #### L 503.0106, BTS, L500.4050, L100.0100, [id number] #### [facility] [address] [place], [address] CBC-Complete Blood Cnt No Di ffon 01-27-2025 HCT Normal 37-47 [facility] Comment on above: Result Comment: Canc elled via OM: Order cancelled - Patient discharged Performed By: #### L 503.0106, BTS, L500.4050, L100.0100, [id number] #### [facility] [address] [place], [address] HGB Normal 12.0-15.0 [facility] Comment on above: Result Comment: Canc elled via OM: Order cancelled - Patient discharged Performed By: #### L 503.0106, BTS, L500.4050, L100.0100, [id number] #### [facility] [address] [place], [address] MCH Normal 27.0-32.0 [facility] Comment on above: Result Comment: Canc elled via OM: Order cancelled - Patient discharged Performed By: #### L 503.0106, BTS, L500.4050, L100.0100, [id number] #### [facility] [address] [place], [address] MCHC Normal 32-36 [facility] Comment on above: Result Comment: Canc elled via OM: Order cancelled - Patient discharged Performed By: #### L 503.0106, BTS, L500.4050, L100.0100, [id number] #### [facility] [address] [place], [address] MCV Normal 81-99 [facility] Comment on above: Result Comment: Canc elled via OM: Order cancelled - Patient discharged Performed By: #### L 503.0106, BTS, L500.4050, L100.0100, [id number] #### [facility] [address] [place], [address] PLT Normal 150-450 [facility] Comment on above: Result Comment: Canc elled via OM: Order cancelled - Patient discharged Performed By: #### L 503.0106, BTS, L500.4050, L100.0100, [id number] #### [facility] [address] [place], [address] RBC Normal 4.2-5.4 [facility] Comment on above: Result Comment: Canc elled via OM: Order cancelled - Patient discharged Performed By: #### L 503.0106, BTS, L500.4050, L100.0100, [id number] #### [facility] [address] [place], [address] RDW CV Normal 11.6-14.6 [facility] Comment on above: Result Comment: Canc elled via OM: Order cancelled - Patient discharged Performed By: #### L 503.0106, BTS, L500.4050, L100.0100, [id number] #### [facility] [address] [place], [address] RDW SD Normal 35.1-43.9 [facility] Comment on above: Result Comment: Canc elled via OM: Order cancelled - Patient discharged Performed By: #### L 503.0106, BTS, L500.4050, L100.0100, [id number] #### [facility] [address] [place], [address] WBC Normal 4.4-11.0 [facility] Comment on above: Result Comment: Canc elled via OM: Order cancelled - Patient discharged Performed By: #### L 503.0106, BTS, L500.4050, L100.0100, [id number] #### [facility] [address] [place], [address] Surgical pathology reportOrd ered By: Debbie Corea on 01-27-2025 Surgical pathology study [facility] Basic Metabolic Profile (BMP )on 01-26-2025 BUN Normal 4-19 [facility] Comment on above: Result Comment: Canc elled via OM: MD Ordered Performed By: #### L 503.0106, BTS, L500.4050, L100.0100, [id number] #### [facility] [address] [place], [address] BUN/CRE Normal 10-20 [facility] Comment on above: Result Comment: Canc elled via OM: MD Ordered Performed By: #### L 503.0106, BTS, L500.4050, L100.0100, [id number] #### [facility] [address] [place], [address] Calcium Normal 7.6-11.0 [facility] Comment on above: Result Comment: Canc elled via OM: MD Ordered Performed By: #### L 503.0106, BTS, L500.4050, L100.0100, [id number] #### [facility] [address] [place], [address] CL Normal 98-108 [facility] Comment on above: Result Comment: Canc elled via OM: MD Ordered Performed By: #### L 503.0106, BTS, L500.4050, L100.0100, [id number] #### [facility] [address] [place], [address] CO2 Normal 21.0-32.0 [facility] Comment on above: Result Comment: Canc elled via OM: MD Ordered Performed By: #### L 503.0106, BTS, L500.4050, L100.0100, [id number] #### [facility] [address] [place], [address] CREAT,SERUM Normal 0.70-1.20 [facility] Comment on above: Result Comment: Canc elled via OM: MD Ordered Performed By: #### L 503.0106, BTS, L500.4050, L100.0100, [id number] #### [facility] [address] [place], [address] eGFR Normal >60 [facility] Comment on above: Result Comment: Canc elled via OM: MD Ordered Performed By: #### L 503.0106, BTS, L500.4050, L100.0100, [id number] #### [facility] [address] [place], [address] GAP Normal 5-15 [facility] Comment on above: Result Comment: Canc elled via OM: MD Ordered Performed By: #### L 503.0106, BTS, L500.4050, L100.0100, [id number] #### [facility] [address] [place], [address] GLU Normal 70-99 [facility] Comment on above: Result Comment: Canc elled via OM: MD Ordered Performed By: #### L 503.0106, BTS, L500.4050, L100.0100, L501.9520 #### [facility] [address] [place], [address] Potassium Normal 3.3-5.1 [facility] Comment on above: Result Comment: Canc elled via OM: MD Ordered Performed By: #### L 503.0106, BTS, L500.4050, L100.0100, [id number] #### [facility] [address] [place], [address] Basic Metabolic Profile (BMP) Normal 133-145 [facility] Comment on above: Result Comment: Canc elled via OM: MD Ordered Performed By: #### L 503.0106, BTS, L500.4050, L100.0100, L501.9520 #### [facility] [address] [place], [address] CBC-Complete Blood Cnt No Di ffon 01-26-2025 HCT Normal 37-47 [facility] Comment on above: Result Comment: Canc elled via OM: Order cancelled - Patient discharged Performed By: #### L 503.0106, BTS, L500.4050, L100.0100, L501.9520 #### [facility] [address] [place], [address] HGB Normal 12.0-15.0 [facility] Comment on above: Result Comment: Canc elled via OM: Order cancelled - Patient discharged Performed By: #### L 503.0106, BTS, L500.4050, L100.0100, L501.9520 #### [facility] [address] [place], [address] MCH Normal 27.0-32.0 [facility] Comment on above: Result Comment: Canc elled via OM: Order cancelled - Patient discharged Performed By: #### L 503.0106, BTS, L500.4050, L100.0100, L501.9520 #### [facility] [address] [place], [address] MCHC Normal 32-36 [facility] Comment on above: Result Comment: Canc elled via OM: Order cancelled - Patient discharged Performed By: #### L 503.0106, BTS, L500.4050, L100.0100, L501.9520 #### [facility] [address] [place], [address] MCV Normal 81-99 [facility] Comment on above: Result Comment: Canc elled via OM: Order cancelled - Patient discharged Performed By: #### L 503.0106, BTS, L500.4050, L100.0100, L501.9520 #### [facility] [address] [place], [address] PLT Normal 150-450 [facility] Comment on above: Result Comment: Canc elled via OM: Order cancelled - Patient discharged Performed By: #### L 503.0106, BTS, L500.4050, L100.0100, L501.9520 #### [facility] [address] [place], [address] RBC Normal 4.2-5.4 [facility] Comment on above: Result Comment: Canc elled via OM: Order cancelled - Patient discharged Performed By: #### L 503.0106, BTS, L500.4050, L100.0100, L501.9520 #### [facility] [address] [place], [address] RDW CV Normal 11.6-14.6 [facility] Comment on above: Result Comment: Canc elled via OM: Order cancelled - Patient discharged Performed By: #### L 503.0106, BTS, L500.4050, L100.0100, L501.9520 #### [facility] [address] [place], [address] RDW SD Normal 35.1-43.9 [facility] Comment on above: Result Comment: Canc elled via OM: Order cancelled - Patient discharged Performed By: #### L 503.0106, BTS, L500.4050, L100.0100, L501.9520 #### [facility] [address] [place], [address] WBC Normal 4.4-11.0 [facility] Comment on above: Result Comment: Canc elled via OM: Order cancelled - Patient discharged Performed By: #### L 503.0106, BTS, L500.4050, L100.0100, L501.9520 #### [facility] [address] [place], [address] Basic Metabolic Profile (BMP )on 01-25-2025 BUN Normal -19 [facility] Comment on above: Result Comment: Canc elled via OM: MD Ordered Performed By: #### L 500.2500, L100.0500 #### [facility] [address] [place], [address] BUN/CRE Normal - [facility] Comment on above: Result Comment: Canc elled via OM: MD Ordered Performed By: #### L 500.2500, L100.0500 #### [facility] [address] [place], [address] Calcium Normal 7.6-11.0 [facility] Comment on above: Result Comment: Canc elled via OM: MD Ordered Performed By: #### L 500.2500, L100.0500 #### [facility] [address] [place], [address] CL Normal 98-108 [facility] Comment on above: Result Comment: Canc elled via OM: MD Ordered Performed By: #### L 500.2500, L100.0500 #### [facility] [address] [place], [address] CO2 Normal 21.0-32.0 [facility] Comment on above: Result Comment: Canc elled via OM: MD Ordered Performed By: #### L 500.2500, L100.0500 #### [facility] [address] [place], [address] CREAT,SERUM Normal 0.70-1.20 [facility] Comment on above: Result Comment: Canc elled via OM: MD Ordered Performed By: #### L 500.2500, L100.0500 #### [facility] [address] [place], [address] eGFR Normal >60 [facility] Comment on above: Result Comment: Canc elled via OM: MD Ordered Performed By: #### L 500.2500, L100.0500 #### [facility] [address] [place], [address] GAP Normal 5-15 [facility] Comment on above: Result Comment: Canc elled via OM: MD Ordered Performed By: #### L 500.2500, L100.0500 #### [facility] [address] [place], [address] GLU Normal 70-99 [facility] Comment on above: Result Comment: Canc elled via OM: MD Ordered Performed By: #### L 500.2500, L100.0500 #### [facility] [address] [place], [address] Potassium Normal 3.3-5.1 [facility] Comment on above: Result Comment: Canc elled via OM: MD Ordered Performed By: #### L 500.2500, L100.0500 #### [facility] [address] [place], [address] Basic Metabolic Profile (BMP) Normal 133-145 [facility] Comment on above: Result Comment: Canc elled via OM: MD Ordered Performed By: #### L 500.2500, L100.0500 #### [facility] [address] [place], [address] CBC-Complete Blood Cnt No Di ffon 01-25-2025 Erythrocyte distribution width (RBC) [Ratio] 13.2 % Normal 11.6-14.6 [facility] Comment on above: Performed By: #### L 500.2500, L100.0500 #### [facility] [address] [place], [address] Hematocrit (Bld) [Volume fraction] 24.9 % Low 37-47 [facility] Comment on above: Performed By: #### L 500.2500, L100.0500 #### [facility] [address] [place], [address] Hemoglobin (Bld) [Mass/Vol] 8.4 g/dL Low 12.0-15.0 [facility] Comment on above: Performed By: #### L 500.2500, L100.0500 #### [facility] [address] [place], [address] MCH (RBC) [Entitic mass] 27.9 pg Normal 27.0-32.0 [facility] Comment on above: Performed By: #### L 500.2500, L100.0500 #### [facility] [address] [place], [address] MCHC (RBC) [Mass/Vol] 33.7 g/dL Normal 32-36 [facility] Comment on above: Performed By: #### L 500.2500, L100.0500 #### [facility] [address] [place], [address] MCV (RBC) [Entitic vol] 82.7 fL Normal 81-99 [facility] Comment on above: Performed By: #### L 500.2500, L100.0500 #### [facility] [address] [place], [address] Platelet mean volume (Bld) [Entitic vol] 8.7 fL Normal 6.2-12.0 [facility] Comment on above: Performed By: #### L 500.2500, L100.0500 #### [facility] [address] [place], [address] Platelets (Bld) [#/Vol] 362 10*3/uL Normal 150-450 [facility] Comment on above: Performed By: #### L 500.2500, L100.0500 #### [facility] [address] [place], [address] RBC (Bld) [#/Vol] 3.01 10*6/uL Low 4.2-5.4 [facility] Comment on above: Performed By: #### L 500.2500, L100.0500 #### [facility] [address] [place], [address] RDW SD 40.2 fl Normal 35.1-43.9 [facility] Comment on above: Performed By: #### L 500.2500, L100.0500 #### [facility] [address] [place], [address] WBC (Bld) [#/Vol] 8.6 10*3/uL Normal 4.4-11.0 [facility] Comment on above: Performed By: #### L 500.2500, L100.0500 #### [facility] [address] [place], [address] COVID 19 AG RAPID (AUGUSTIN Carlson)on 01-25-2025 SARS-CoV-2 (COVID-19) RNA DESHAUN+probe Ql (Unsp spec) SARS-CoV-2 (COVID 19) Negative RAPID METHOD BinaxNow COVID19 Ag Card Normal [facility] Comment on above: Performed By: #### L 503.0106, BTS, L500.4050, L100.0100, L501.9520 #### [facility] [address] [place], [place], [id number] COVID-19 virus antigen assay Ordered By: Davian Kelly on 01-25-2025 SARS-CoV-2 (COVID-19) Ag IA.rapid Ql (Resp) [facility] Erythrocyte distribution wid th ratioOrdered By: Darline Lundy on 01-25-2025 Erythrocyte distribution width (RBC) [Ratio] 13.2 % 11.6-14.6 [facility] Erythrocyte distribution wid th standard deviationOrdered By: Darline Lundy on 01-25-2025 Erythrocyte distribution width (RBC) [Ratio] 40.2 fl 35.1-43.9 [facility] Hematocrit Auto (Bld) [Volum e fraction]Ordered By: Darline Lundy on 01-25-2025 Hematocrit (Bld) [Volume fraction] 24.9 % Low 37-47 [facility] Hemoglobin measurementOrdere d By: Darline Lundy on 01-25-2025 Hemoglobin (Bld) [Mass/Vol] 8.4 g/dL Low 12.0-15.0 [facility] MCV (mean corpuscular volume ) determinationOrdered By: Darline Lundy on 01-25-2025 MCV (RBC) [Entitic vol] 82.7 fL 81-99 [facility] Mean corpuscular hemoglobin (MCH) determinationOrdered By: Darline Lundy on 01-25-2025 MCH (RBC) [Entitic mass] 27.9 pg 27.0-32.0 [facility] Mean corpuscular hemoglobin concentration (MCHC) determinationOrdered By: Darline Lundy on 01-25-2025 MCHC (RBC) [Mass/Vol] 33.7 g/dL 32-36 [facility] Mean platelet volume determi nationOrdered By: Darline Lundy on 01-25-2025 Platelet mean volume (Bld) [Entitic vol] 8.7 fL 6.2-12.0 [facility] Platelet countOrdered By: Luiz Lundy on 01-25-2025 Platelets (Bld) [#/Vol] 362 10*3/uL 150-450 [facility] RBC Auto (Bld) [#/Vol]Ordere d By: Darline Lundy on 01-25-2025 RBC (Bld) [#/Vol] 3.01 10*6/uL Low 4.2-5.4 [facility] White blood cell (WBC) count Ordered By: Darline Lundy on 01-25-2025 WBC (Bld) [#/Vol] 8.6 10*3/uL 4.4-11.0 [facility] Anion gap in Serum or Plasma Ordered By: Darline Lundy on 01-24-2025 Anion gap [Moles/Vol] 9 mmol/L 08-25 [facility] BUN/creatinine ratioOrdered By: Darline Lundy on 01-24-2025 Urea nitrogen/Creatinine [Mass ratio] 28.0 mg/mg High 01-30 [facility] Basic Metabolic Profile (BMP )on 01-24-2025 BUN/CRE 28.0 RATIO High 01-30 [facility] Comment on above: Performed By: #### L 503.0106, BTS, L500.4050, L100.0100, L501.9520 #### [facility] [address] [place], [address] Calcium [Mass/Vol] 8.4 mg/dL Normal 7.6-11.0 [facility] Comment on above: Performed By: #### L 503.0106, BTS, L500.4050, L100.0100, L501.9520 #### [facility] [address] [place], [address] Chloride [Moles/Vol] 103 mmol/L Normal 98-108 [facility] Comment on above: Performed By: #### L 503.0106, BTS, L500.4050, L100.0100, L501.9520 #### [facility] [address] [place], [address] CO2 [Moles/Vol] 24.5 mmol/L Normal 21.0-32.0 [facility] Comment on above: Performed By: #### L 503.0106, BTS, L500.4050, L100.0100, L501.9520 #### [facility] [address] [place], [address] Creatinine [Mass/Vol] 0.68 mg/dL Low 0.70-1.20 [facility] Comment on above: Performed By: #### L 503.0106, BTS, L500.4050, L100.0100, L501.9520 #### [facility] [address] [place], [address] ECRCL 49.12 ml/min Low 50-250 [facility] Comment on above: Performed By: #### L 503.0106, BTS, L500.4050, L100.0100, L501.9520 #### [facility] [address] [place], [address] GAP 9 Normal 5-15 [facility] Comment on above: Performed By: #### L 503.0106, BTS, L500.4050, L100.0100, L501.9520 #### [facility] [address] [place], [address] GFR/1.73 sq M.predicted among non-blacks MDRD (S/P/Bld) [Vol rate/Area] 86 mL/min/{1.73_m2} Normal >60 [facility] Comment on above: Result Comment: mL/m in/1.73m2 CKD-EPI Creatinine Equation (2020) Performed By: #### L 503.0106, BTS, L500.4050, L100.0100, L501.9520 #### [facility] [address], [address] Glucose [Mass/Vol] 97 mg/dL Normal 70-99 [facility] Comment on above: Performed By: #### L 503.0106, BTS, L500.4050, L100.0100, L501.9520 #### [facility] [address] [place], [address] Potassium [Moles/Vol] 3.9 mmol/L Normal 3.3-5.1 [facility] Comment on above: Performed By: #### L 503.0106, BTS, L500.4050, L100.0100, L501.9520 #### [facility] [address] [place], [address] Sodium [Moles/Vol] 136 mmol/L Normal 133-145 [facility] Comment on above: Performed By: #### L 503.0106, BTS, L500.4050, L100.0100, L501.9520 #### [facility] [address] [place], [address] Urea nitrogen [Mass/Vol] 19 mg/dL Normal 4-19 [facility] Comment on above: Performed By: #### L 503.0106, BTS, L500.4050, L100.0100, L501.9520 #### [facility] [address] [place], [address] CBC-Complete Blood Cnt No Di ffon 01-24-2025 Erythrocyte distribution width (RBC) [Ratio] 13.2 % Normal 11.6-14.6 [facility] Comment on above: Performed By: #### L 503.0106, BTS, L500.4050, L100.0100, L501.9520 #### [facility] [address] [place], [address] Hematocrit (Bld) [Volume fraction] 25.0 % Low 37-47 [facility] Comment on above: Performed By: #### L 503.0106, BTS, L500.4050, L100.0100, L501.9520 #### [facility] [address] [place], [address] Hemoglobin (Bld) [Mass/Vol] 8.2 g/dL Low 12.0-15.0 [facility] Comment on above: Performed By: #### L 503.0106, BTS, L500.4050, L100.0100, L501.9520 #### [facility] [address] [place], [address] MCH (RBC) [Entitic mass] 27.5 pg Normal 27.0-32.0 [facility] Comment on above: Performed By: #### L 503.0106, BTS, L500.4050, L100.0100, L501.9520 #### [facility] [address] [place], [address] MCHC (RBC) [Mass/Vol] 32.8 g/dL Normal 32-36 [facility] Comment on above: Performed By: #### L 503.0106, BTS, L500.4050, L100.0100, L501.9520 #### [facility] [address] [place], [address] MCV (RBC) [Entitic vol] 83.9 fL Normal 81-99 [facility] Comment on above: Performed By: #### L 503.0106, BTS, L500.4050, L100.0100, L501.9520 #### [facility] [address] [place], [address] Platelet mean volume (Bld) [Entitic vol] 9.1 fL Normal 6.2-12.0 [facility] Comment on above: Performed By: #### L 503.0106, BTS, L500.4050, L100.0100, L501.9520 #### [facility] [address] [place], [address] Platelets (Bld) [#/Vol] 308 10*3/uL Normal 150-450 [facility] Comment on above: Performed By: #### L 503.0106, BTS, L500.4050, L100.0100, L501.9520 #### [facility] [address] [place], [address] RBC (Bld) [#/Vol] 2.98 10*6/uL Low 4.2-5.4 [facility] Comment on above: Performed By: #### L 503.0106, BTS, L500.4050, L100.0100, L501.9520 #### [facility] [address] [place], [address] RDW SD 40.6 fl Normal 35.1-43.9 [facility] Comment on above: Performed By: #### L 503.0106, BTS, L500.4050, L100.0100, L501.9520 #### [facility] [address] [place], [address] WBC (Bld) [#/Vol] 8.6 10*3/uL Normal 4.4-11.0 [facility] Comment on above: Performed By: #### L 503.0106, BTS, L500.4050, L100.0100, L501.9520 #### [facility] [address] [place], [address] Carbon dioxide, total [Moles /volume] in Central venous bloodOrdered By: Darline Lundy on 01-24-2025 CO2 [Moles/Vol] 24.5 mmol/L 21.0-32.0 [facility] Chloride assayOrdered By: Luiz Lundy on 01-24-2025 Chloride [Moles/Vol] 103 mmol/L 98-108 [facility] Glomerular filtration rate ( GFR) estimation/1.73 sq m using serum, plasma, or whole bOrdered By: Darline Lundy on 01-24-2025 GFR/1.73 sq M.predicted among non-blacks MDRD (S/P/Bld) [Vol rate/Area] 86 mL/min/{1.73_m2} >60 [facility] Comment on above: mL/min/1.73m2 CKD-EP I Creatinine Equation (2020) HH, Hemoglobin AND Hematocri ton 01-24-2025 Hematocrit (Bld) [Volume fraction] 25.1 % Low 37-47 [facility] Comment on above: Performed By: #### L 503.0106, BTS, L500.4050, L100.0100, L501.9520 #### [facility] [address] [place], [address] Hemoglobin (Bld) [Mass/Vol] 8.5 g/dL Low 12.0-15.0 [facility] Comment on above: Performed By: #### L 503.0106, BTS, L500.4050, L100.0100, L501.9520 #### [facility] [address] [facility] [place], [address] Potassium measurement (mass/ volume)Ordered By: Darline Lundy on 01-24-2025 Potassium (Unsp spec) [Mass/Vol] 3.9 mmol/L 3.3-5.1 [facility] Serum creatinine measurement (mass/volume)Ordered By: Darline Lundy on 01-24-2025 Creatinine [Mass/Vol] 0.68 mg/dL Low 0.70-1.20 [facility] Serum glucose measurement (m ass/volume)Ordered By: Darline Lundy on 01-24-2025 Glucose [Mass/Vol] 97 mg/dL 70-99 [facility] Serum or plasma calcium taylor urement (mass/volume)Ordered By: Darline Lundy on 01-24-2025 Calcium [Mass/Vol] 8.4 mg/dL 7.6-11.0 [facility] Serum or plasma urea nitroge n measurement (mass/volume)Ordered By: Darline Lundy on 01-24-2025 Urea nitrogen [Mass/Vol] 19 mg/dL 4-19 [facility] Sodium levelOrdered By: Oscar Lundy on 01-24-2025 Sodium [Moles/Vol] 136 mmol/L 133-145 [facility] Basic Metabolic Profile (BMP )on 01-23-2025 BUN/CRE 26.3 RATIO High 10-20 [facility] Comment on above: Performed By: #### L 503.0106, BTS, L500.4050, L100.0100, L501.9520 #### [facility] [address] [place], [address] Calcium [Mass/Vol] 8.3 mg/dL Normal 7.6-11.0 [facility] Comment on above: Performed By: #### L 503.0106, BTS, L500.4050, L100.0100, L501.9520 #### [facility] [address] [place], [address] Chloride [Moles/Vol] 102 mmol/L Normal 98-108 [facility] Comment on above: Performed By: #### L 503.0106, BTS, L500.4050, L100.0100, L501.9520 #### [facility] [address] [place], [address] CO2 [Moles/Vol] 24.2 mmol/L Normal 21.0-32.0 [facility] Comment on above: Performed By: #### L 503.0106, BTS, L500.4050, L100.0100, L501.9520 #### [facility] [address] [place], [address] Creatinine [Mass/Vol] 0.61 mg/dL Low 0.70-1.20 [facility] Comment on above: Performed By: #### L 503.0106, BTS, L500.4050, L100.0100, L501.9520 #### [facility] [address] [place], [address] ECRCL 49.16 ml/min Low 50-250 [facility] Comment on above: Performed By: #### L 503.0106, BTS, L500.4050, L100.0100, L501.9520 #### [facility] [address] [place], [address] GAP 9 Normal 5-15 [facility] Comment on above: Performed By: #### L 503.0106, BTS, L500.4050, L100.0100, L501.9520 #### [facility] [address] [place], [address] GFR/1.73 sq M.predicted among non-blacks MDRD (S/P/Bld) [Vol rate/Area] 89 mL/min/{1.73_m2} Normal >60 [facility] Comment on above: Result Comment: mL/m in/1.73m2 CKD-EPI Creatinine Equation (2020) Performed By: #### L 503.0106, BTS, L500.4050, L100.0100, L501.9520 #### [facility] [address] [place], [address] Glucose [Mass/Vol] 105 mg/dL High 70-99 [facility] Comment on above: Performed By: #### L 503.0106, BTS, L500.4050, L100.0100, L501.9520 #### [facility] [address] [place], [address] Potassium [Moles/Vol] 3.8 mmol/L Normal 3.3-5.1 [facility] Comment on above: Performed By: #### L 503.0106, BTS, L500.4050, L100.0100, L501.9520 #### [facility] [address] [place], [address] Sodium [Moles/Vol] 135 mmol/L Normal 133-145 [facility] Comment on above: Performed By: #### L 503.0106, BTS, L500.4050, L100.0100, L501.9520 #### [facility] [address] [place], [address] Urea nitrogen [Mass/Vol] 16 mg/dL Normal 4-19 [facility] Comment on above: Performed By: #### L 503.0106, BTS, L500.4050, L100.0100, L501.9520 #### [facility] [address] [place], [address] CBC-Complete Blood Cnt No Di ffon 01-23-2025 Erythrocyte distribution width (RBC) [Ratio] 13.2 % Normal 11.6-14.6 [facility] Comment on above: Performed By: #### L 503.0106, BTS, L500.4050, L100.0100, L501.9520 #### [facility] [address] [place], [address] Hematocrit (Bld) [Volume fraction] 25.6 % Low 37-47 [facility] Comment on above: Performed By: #### L 503.0106, BTS, L500.4050, L100.0100, L501.9520 #### [facility] [address] [place], [address] Hemoglobin (Bld) [Mass/Vol] 8.6 g/dL Low 12.0-15.0 [facility] Comment on above: Performed By: #### L 503.0106, BTS, L500.4050, L100.0100, L501.9520 #### [facility] [address] [place], [address] MCH (RBC) [Entitic mass] 27.7 pg Normal 27.0-32.0 [facility] Comment on above: Performed By: #### L 503.0106, BTS, L500.4050, L100.0100, L501.9520 #### [facility] [address] [place], [address] MCHC (RBC) [Mass/Vol] 33.6 g/dL Normal 32-36 [facility] Comment on above: Performed By: #### L 503.0106, BTS, L500.4050, L100.0100, L501.9520 #### [facility] [address] [place], [address] MCV (RBC) [Entitic vol] 82.6 fL Normal 81-99 [facility] Comment on above: Performed By: #### L 503.0106, BTS, L500.4050, L100.0100, L501.9520 #### [facility] [address] [place], [address] Platelet mean volume (Bld) [Entitic vol] 9.2 fL Normal 6.2-12.0 [facility] Comment on above: Performed By: #### L 503.0106, BTS, L500.4050, L100.0100, L501.9520 #### [facility] [address] [place], [address] Platelets (Bld) [#/Vol] 250 10*3/uL Normal 150-450 [facility] Comment on above: Performed By: #### L 503.0106, BTS, L500.4050, L100.0100, L501.9520 #### [facility] [address] [place], [address] RBC (Bld) [#/Vol] 3.10 10*6/uL Low 4.2-5.4 [facility] Comment on above: Performed By: #### L 503.0106, BTS, L500.4050, L100.0100, L501.9520 #### [facility] [address] [place], [address] RDW SD 39.6 fl Normal 35.1-43.9 [facility] Comment on above: Performed By: #### L 503.0106, BTS, L500.4050, L100.0100, L501.9520 #### [facility] [address] [place], [address] WBC (Bld) [#/Vol] 8.6 10*3/uL Normal 4.4-11.0 [facility] Comment on above: Performed By: #### L 503.0106, BTS, L500.4050, L100.0100, L501.9520 #### [facility] [address] [place], [address] Ferritinon 01-23-2025 Ferritin [Mass/Vol] 1208 ng/mL High 22-378 [facility] Comment on above: Performed By: #### L 503.6030, L503.6550 #### [facility] [address] [place], [address] Iron measurement (mass/mass) Ordered By: Davian Kelly on 01-23-2025 Iron (Unsp spec) [Mass/Mass] 70 ug/dL 50-170 [facility] Iron+Iron Binding Capacityon 01-23-2025 TIBC 189 ug/dL Low 250-450 [facility] Comment on above: Performed By: #### L 503.6030, L503.6550 #### [facility] [address] [place], [address] No Panel InformationOrdered By: Davian Kelly on 01-23-2025 Unsaturated Iron Binding Capacity 119 ug/dL Low 228-428 [facility] Serum or plasma ferritin allison surement (mass/volume)Ordered By: Davian Kelly on 01-23-2025 Ferritin [Mass/Vol] 1208 ng/mL High 22-378 [facility] Serum or plasma iron saturat ion measurement (mass fraction)Ordered By: Davian Kelly on 01-23-2025 Iron saturation [Mass fraction] 37.0 % 13-59 [facility] Basic Metabolic Profile (BMP )on 01-22-2025 BUN/CRE 27.5 RATIO High 1020 [facility] Comment on above: Performed By: #### L 503.0106, BTS, L500.4050, L100.0100, L501.9520 #### [facility] [address] [place], [address] Calcium [Mass/Vol] 8.2 mg/dL Normal 7.6-11.0 [facility] Comment on above: Performed By: #### L 503.0106, BTS, L500.4050, L100.0100, L501.9520 #### [facility] [address] [place], [address] Chloride [Moles/Vol] 103 mmol/L Normal 98-108 [facility] Comment on above: Performed By: #### L 503.0106, BTS, L500.4050, L100.0100, L501.9520 #### [facility] [address] [place], [address] CO2 [Moles/Vol] 23.1 mmol/L Normal 21.0-32.0 [facility] Comment on above: Performed By: #### L 503.0106, BTS, L500.4050, L100.0100, L501.9520 #### [facility] [address] [place], [address] Creatinine [Mass/Vol] 0.64 mg/dL Low 0.70-1.20 [facility] Comment on above: Performed By: #### L 503.0106, BTS, L500.4050, L100.0100, L501.9520 #### [facility] [address] [place], [address] ECRCL 50.86 ml/min Normal 50-250 [facility] Comment on above: Performed By: #### L 503.0106, BTS, L500.4050, L100.0100, L501.9520 #### [facility] [address] [place], [address] GAP 10 Normal 5-15 [facility] Comment on above: Performed By: #### L 503.0106, BTS, L500.4050, L100.0100, L501.9520 #### [facility] [address] [place], [address] GFR/1.73 sq M.predicted among non-blacks MDRD (S/P/Bld) [Vol rate/Area] 88 mL/min/{1.73_m2} Normal >60 [facility] Comment on above: Result Comment: mL/m in/1.73m2 CKD-EPI Creatinine Equation (2020) Performed By: #### L 503.0106, BTS, L500.4050, L100.0100, L501.9520 #### [facility] [address] [place], [address] Glucose [Mass/Vol] 135 mg/dL High 70-99 [facility] Comment on above: Performed By: #### L 503.0106, BTS, L500.4050, L100.0100, L501.9520 #### [facility] [address] [place], [address] Potassium [Moles/Vol] 4.2 mmol/L Normal 3.3-5.1 [facility] Comment on above: Performed By: #### L 503.0106, BTS, L500.4050, L100.0100, L501.9520 #### [facility] [address] [place], [address] Sodium [Moles/Vol] 136 mmol/L Normal 133-145 [facility] Comment on above: Performed By: #### L 503.0106, BTS, L500.4050, L100.0100, L501.9520 #### [facility] [address] [place], [address] Urea nitrogen [Mass/Vol] 18 mg/dL Normal 4-19 [facility] Comment on above: Performed By: #### L 503.0106, BTS, L500.4050, L100.0100, L501.9520 #### [facility] [address] [place], [address] CBC-Complete Blood Cnt No Di ffon 01-22-2025 Erythrocyte distribution width (RBC) [Ratio] 13.0 % Normal 11.6-14.6 [facility] Comment on above: Performed By: #### L 503.0106, BTS, L500.4050, L100.0100, L501.9520 #### [facility] [address] [place], [address] Hematocrit (Bld) [Volume fraction] 26.6 % Low 37-47 [facility] Comment on above: Performed By: #### L 503.0106, BTS, L500.4050, L100.0100, L501.9520 #### [facility] [address] [place], [address] Hemoglobin (Bld) [Mass/Vol] 9.1 g/dL Low 12.0-15.0 [facility] Comment on above: Performed By: #### L 503.0106, BTS, L500.4050, L100.0100, L501.9520 #### [facility] [address] [place], [address] MCH (RBC) [Entitic mass] 27.9 pg Normal 27.0-32.0 [facility] Comment on above: Performed By: #### L 503.0106, BTS, L500.4050, L100.0100, L501.9520 #### [facility] [address] [place], [address] MCHC (RBC) [Mass/Vol] 34.2 g/dL Normal 32-36 [facility] Comment on above: Performed By: #### L 503.0106, BTS, L500.4050, L100.0100, L501.9520 #### [facility] [address] [place], [address] MCV (RBC) [Entitic vol] 81.6 fL Normal 81-99 [facility] Comment on above: Performed By: #### L 503.0106, BTS, L500.4050, L100.0100, L501.9520 #### [facility] [address] [place], [address] Platelet mean volume (Bld) [Entitic vol] 9.2 fL Normal 6.2-12.0 [facility] Comment on above: Performed By: #### L 503.0106, BTS, L500.4050, L100.0100, L501.9520 #### [facility] [address] [place], [address] Platelets (Bld) [#/Vol] 211 10*3/uL Normal 150-450 [facility] Comment on above: Performed By: #### L 503.0106, BTS, L500.4050, L100.0100, L501.9520 #### [facility] [address] [place], [address] RBC (Bld) [#/Vol] 3.26 10*6/uL Low 4.2-5.4 [facility] Comment on above: Performed By: #### L 503.0106, BTS, L500.4050, L100.0100, L501.9520 #### [facility] [address] [place], [address] RDW SD 39.3 fl Normal 35.1-43.9 [facility] Comment on above: Performed By: #### L 503.0106, BTS, L500.4050, L100.0100, L501.9520 #### [facility] [address] [place], [address] WBC (Bld) [#/Vol] 8.6 10*3/uL Normal 4.4-11.0 [facility] Comment on above: Performed By: #### L 503.0106, BTS, L500.4050, L100.0100, L501.9520 #### [facility] [address] [place], [address] Basic Metabolic Profile (BMP )on 01-21-2025 BUN/CRE 16.5 RATIO Normal 10-20 [facility] Comment on above: Performed By: #### L 503.0106, BTS, L500.4050, L100.0100, L501.9520 #### [facility] [address] [place], [address] Calcium [Mass/Vol] 7.8 mg/dL Normal 7.6-11.0 [facility] Comment on above: Performed By: #### L 503.0106, BTS, L500.4050, L100.0100, L501.9520 #### [facility] [address] [place], [address] Chloride [Moles/Vol] 103 mmol/L Normal 98-108 [facility] Comment on above: Performed By: #### L 503.0106, BTS, L500.4050, L100.0100, L501.9520 #### [facility] [address] [place], [address] CO2 [Moles/Vol] 22.5 mmol/L Normal 21.0-32.0 [facility] Comment on above: Performed By: #### L 503.0106, BTS, L500.4050, L100.0100, L501.9520 #### [facility] [address] [place], [address] Creatinine [Mass/Vol] 0.69 mg/dL Low 0.70-1.20 [facility] Comment on above: Performed By: #### L 503.0106, BTS, L500.4050, L100.0100, L501.9520 #### [facility] [address] [place], [address] ECRCL 49.36 ml/min Low 50-250 [facility] Comment on above: Performed By: #### L 503.0106, BTS, L500.4050, L100.0100, L501.9520 #### [facility] [address] [place], [address] GAP 10 Normal 5-15 [facility] Comment on above: Performed By: #### L 503.0106, BTS, L500.4050, L100.0100, L501.9520 #### [facility] [address] [place], [address] GFR/1.73 sq M.predicted among non-blacks MDRD (S/P/Bld) [Vol rate/Area] 86 mL/min/{1.73_m2} Normal >60 [facility] Comment on above: Result Comment: mL/m in/1.73m2 CKD-EPI Creatinine Equation (2020) Performed By: #### L 503.0106, BTS, L500.4050, L100.0100, L501.9520 #### [facility] [address] [place], [address] Glucose [Mass/Vol] 167 mg/dL High 70-99 [facility] Comment on above: Performed By: #### L 503.0106, BTS, L500.4050, L100.0100, L501.9520 #### [facility] [address] [place], [address] Potassium [Moles/Vol] 3.8 mmol/L Normal 3.3-5.1 [facility] Comment on above: Performed By: #### L 503.0106, BTS, L500.4050, L100.0100, L501.9520 #### [facility] [address] [place], [address] Sodium [Moles/Vol] 135 mmol/L Normal 133-145 [facility] Comment on above: Performed By: #### L 503.0106, BTS, L500.4050, L100.0100, L501.9520 #### [facility] [address] [place], [address] Urea nitrogen [Mass/Vol] 11 mg/dL Normal 4-19 [facility] Comment on above: Performed By: #### L 503.0106, BTS, L500.4050, L100.0100, L501.9520 #### [facility] [address] [place], [address] CBC-Complete Blood Cnt No Di ffon 01-21-2025 Erythrocyte distribution width (RBC) [Ratio] 13.1 % Normal 11.6-14.6 [facility] Comment on above: Performed By: #### L 503.0106, BTS, L500.4050, L100.0100, L501.9520 #### [facility] [address] [place], [address] Hematocrit (Bld) [Volume fraction] 28.9 % Low 37-47 [facility] Comment on above: Performed By: #### L 503.0106, BTS, L500.4050, L100.0100, L501.9520 #### [facility] [address] [place], [address] Hemoglobin (Bld) [Mass/Vol] 9.7 g/dL Low 12.0-15.0 [facility] Comment on above: Performed By: #### L 503.0106, BTS, L500.4050, L100.0100, L501.9520 #### [facility] [address] [place], [address] MCH (RBC) [Entitic mass] 27.6 pg Normal 27.0-32.0 [facility] Comment on above: Performed By: #### L 503.0106, BTS, L500.4050, L100.0100, L501.9520 #### [facility] [address] [place], [address] MCHC (RBC) [Mass/Vol] 33.6 g/dL Normal 32-36 [facility] Comment on above: Performed By: #### L 503.0106, BTS, L500.4050, L100.0100, L501.9520 #### [facility] [address] [place], [address] MCV (RBC) [Entitic vol] 82.3 fL Normal 81-99 [facility] Comment on above: Performed By: #### L 503.0106, BTS, L500.4050, L100.0100, L501.9520 #### [facility] [address] [place], [address] Platelet mean volume (Bld) [Entitic vol] 8.8 fL Normal 6.2-12.0 [facility] Comment on above: Performed By: #### L 503.0106, BTS, L500.4050, L100.0100, L501.9520 #### [facility] [address] [place], [address] Platelets (Bld) [#/Vol] 209 10*3/uL Normal 150-450 [facility] Comment on above: Performed By: #### L 503.0106, BTS, L500.4050, L100.0100, L501.9520 #### [facility] [address] [place], [address] RBC (Bld) [#/Vol] 3.51 10*6/uL Low 4.2-5.4 [facility] Comment on above: Performed By: #### L 503.0106, BTS, L500.4050, L100.0100, [id number] #### [facility] [address] [place], [address] RDW SD 39.8 fl Normal 35.1-43.9 [facility] Comment on above: Performed By: #### L 503.0106, BTS, L500.4050, L100.0100, [id number] #### [facility] [address] [place], [address] WBC (Bld) [#/Vol] 12.1 10*3/uL High 4.4-11.0 [facility] Comment on above: Performed By: #### L 503.0106, BTS, L500.4050, L100.0100, [id number] #### [facility] [address] [place], [address] Absolute lymphocyte countOrd ered By: Stephan Beard on 01-20-2025 Lymphocytes Auto (Unsp spec) [#/Vol] 0.94 10*3/uL 0.83-4.51 [facility] Absolute neutrophil countOrd ered By: Stephan Beard on 01-20-2025 Neutrophils (Bld) [#/Vol] 6.9 10*3/uL 2.0-7.7 [facility] Automated lymphocyte count a s percentage of total leukocytesOrdered By: Stephan Beard on 01-20-2025 Lymphocytes/100 WBC Auto (Unsp spec) 11.1 % Low 19-41 [facility] Basophil percentageOrdered B y: Stephan Beard on 01-20-2025 Basophils/100 WBC (Bld) 0.1 % 0-1 [facility] Bilirubin Test strip Ql (U)O rdered By: Stephan Beard on 01-20-2025 Bilirubin Ql (U) Negative Negative [facility] Bilirubin, totalOrdered By: Stephan Beard on 01-20-2025 Bilirubin [Mass/Vol] 0.63 mg/dL 0.00-1.30 [facility] CBC W/Diff, Automatedon 01-11 Absolute Lymph 0.94 X10 3/uL Normal 0.83-4.51 [facility] Comment on above: Performed By: #### L 503.0106, BTS, L500.4050, L100.0100, L501.9520 #### [facility] [address] [place], [address] Absolute Neut 6.9 X10 3/uL Normal 2.0-7.7 [facility] Comment on above: Performed By: #### L 503.0106, BTS, L500.4050, L100.0100, L501.9520 #### [facility] [address] [place], [address] Basophils/100 WBC (Bld) 0.1 % Normal 0-1 [facility] Comment on above: Performed By: #### L 503.0106, BTS, L500.4050, L100.0100, L501.9520 #### [facility] [address] [place], [address] Eosinophils/100 WBC (Bld) 0.1 % Normal 0-5 [facility] Comment on above: Performed By: #### L 503.0106, BTS, L500.4050, L100.0100, L501.9520 #### [facility] [address] [place], [address] Erythrocyte distribution width (RBC) [Ratio] 13.1 % Normal 11.6-14.6 [facility] Comment on above: Performed By: #### L 503.0106, BTS, L500.4050, L100.0100, L501.9520 #### [facility] [address] [place], [address] Hematocrit (Bld) [Volume fraction] 34.5 % Low 37-47 [facility] Comment on above: Performed By: #### L 503.0106, BTS, L500.4050, L100.0100, L501.9520 #### [facility] [address] [place], [address] Hemoglobin (Bld) [Mass/Vol] 11.1 g/dL Low 12.0-15.0 [facility] Comment on above: Performed By: #### L 503.0106, BTS, L500.4050, L100.0100, L501.9520 #### [facility] [address] [place], [address] IG% 0.400 Normal 0.0-0.9 [facility] Comment on above: Result Comment: IG% - Immature Granulocytes (promyelocytes, myelocytes and metamyelocytes) > 1% indicates that a LEFT SHIFT is Present. Performed By: #### L 503.0106, BTS, L500.4050, L100.0100, L501.9520 #### [facility] [address] [place], [address] Lymphocytes/100 WBC (Bld) 11.1 % Low 19-41 [facility] Comment on above: Performed By: #### L 503.0106, BTS, L500.4050, L100.0100, L501.9520 #### [facility] [address] [place], [address] MCH (RBC) [Entitic mass] 27.3 pg Normal 27.0-32.0 [facility] Comment on above: Performed By: #### L 503.0106, BTS, L500.4050, L100.0100, L501.9520 #### [facility] [address] [place], [address] MCHC (RBC) [Mass/Vol] 32.2 g/dL Normal 32-36 [facility] Comment on above: Performed By: #### L 503.0106, BTS, L500.4050, L100.0100, L501.9520 #### [facility] [address] [place], [address] MCV (RBC) [Entitic vol] 84.8 fL Normal 81-99 [facility] Comment on above: Performed By: #### L 503.0106, BTS, L500.4050, L100.0100, L501.9520 #### [facility] [address] [place], [address] Monocytes/100 WBC (Bld) 7.2 % Normal 0-10 [facility] Comment on above: Performed By: #### L 503.0106, BTS, L500.4050, L100.0100, L501.9520 #### [facility] [address] [place], [address] Neutrophils/100 WBC (Bld) 81.1 % High 47-70 [facility] Comment on above: Performed By: #### L 503.0106, BTS, L500.4050, L100.0100, L501.9520 #### [facility] [address] [place], [address] Nucleated RBC (Bld) [#/Vol] 0 10*3/uL Normal 0-5 [facility] Comment on above: Performed By: #### L 503.0106, BTS, L500.4050, L100.0100, L501.9520 #### [facility] [address] [place], [address] Platelet mean volume (Bld) [Entitic vol] 8.8 fL Normal 6.2-12.0 [facility] Comment on above: Performed By: #### L 503.0106, BTS, L500.4050, L100.0100, L501.9520 #### [facility] [address] [place], [address] Platelets (Bld) [#/Vol] 241 10*3/uL Normal 150-450 [facility] Comment on above: Performed By: #### L 503.0106, BTS, L500.4050, L100.0100, L501.9520 #### [facility] [address] [place], [address] RBC (Bld) [#/Vol] 4.07 10*6/uL Low 4.2-5.4 [facility] Comment on above: Performed By: #### L 503.0106, BTS, L500.4050, L100.0100, L501.9520 #### [facility] [address] [place], [address] RDW SD 40.1 fl Normal 35.1-43.9 [facility] Comment on above: Performed By: #### L 503.0106, BTS, L500.4050, L100.0100, L501.9520 #### [facility] [address] [place], [address] WBC (Bld) [#/Vol] 8.5 10*3/uL Normal 4.4-11.0 [facility] Comment on above: Performed By: #### L 503.0106, BTS, L500.4050, L100.0100, L501.9520 #### [facility] [address] [place], [address] Comprehensive Metabolic [facility] ilon 01-20-2025 Albumin [Mass/Vol] 3.6 g/dL Normal 3.4-4.8 [facility] Comment on above: Performed By: #### L 503.0106, BTS, L500.4050, L100.0100, L501.9520 #### [facility] [address] [place], [address] Albumin/Globulin [Mass ratio] 1.4 {ratio} Normal 0.9-2.4 [facility] Comment on above: Performed By: #### L 503.0106, BTS, L500.4050, L100.0100, L501.9520 #### [facility] [address] [place], [address] ALK PHOS 51 U/L Normal 35-104 [facility] Comment on above: Performed By: #### L 503.0106, BTS, L500.4050, L100.0100, L501.9520 #### [facility] [address] [place], [address] ALT [Catalytic activity/Vol] U/L Normal <=34 [facility] Comment on above: Performed By: #### L 503.0106, BTS, L500.4050, L100.0100, L501.9520 #### [facility] [address] [place], [address] AST [Catalytic activity/Vol] 19 U/L Normal <=31 [facility] Comment on above: Performed By: #### L 503.0106, BTS, L500.4050, L100.0100, L501.9520 #### [facility] [address] [place], [address] Bilirubin [Mass/Vol] 0.63 mg/dL Normal 0.00-1.30 [facility] Comment on above: Performed By: #### L 503.0106, BTS, L500.4050, L100.0100, L501.9520 #### [facility] [address] [place], [address] BUN/CRE 19.9 RATIO Normal 10-20 [facility] Comment on above: Performed By: #### L 503.0106, BTS, L500.4050, L100.0100, L501.9520 #### [facility] [address] [place], [address] Calcium [Mass/Vol] 8.2 mg/dL Normal 7.6-11.0 [facility] Comment on above: Performed By: #### L 503.0106, BTS, L500.4050, L100.0100, L501.9520 #### [facility] [address] [place], [address] Chloride [Moles/Vol] 100 mmol/L Normal 98-108 [facility] Comment on above: Performed By: #### L 503.0106, BTS, L500.4050, L100.0100, L501.9520 #### [facility] [address] [place], [address] CO2 [Moles/Vol] 21.8 mmol/L Normal 21.0-32.0 [facility] Comment on above: Performed By: #### L 503.0106, BTS, L500.4050, L100.0100, L501.9520 #### [facility] [address] [place], [address] Creatinine [Mass/Vol] 0.65 mg/dL Low 0.70-1.20 [facility] Comment on above: Performed By: #### L 503.0106, BTS, L500.4050, L100.0100, L501.9520 #### [facility] [address] [place], [address] ECRCL 50.52 ml/min Normal 50-250 [facility] Comment on above: Performed By: #### L 503.0106, BTS, L500.4050, L100.0100, L501.9520 #### [facility] [address] [place], [address] GAP 12 Normal 5-15 [facility] Comment on above: Performed By: #### L 503.0106, BTS, L500.4050, L100.0100, L501.9520 #### [facility] [address] [place], [address] GFR/1.73 sq M.predicted among non-blacks MDRD (S/P/Bld) [Vol rate/Area] 87 mL/min/{1.73_m2} Normal >60 [facility] Comment on above: Result Comment: mL/m in/1.73m2 CKD-EPI Creatinine Equation (2020) Performed By: #### L 503.0106, BTS, L500.4050, L100.0100, L501.9520 #### [facility] [address] [place], [address] Globulin (S) [Mass/Vol] 2.7 g/dL Normal 2.2-4.2 [facility] Comment on above: Performed By: #### L 503.0106, BTS, L500.4050, L100.0100, L501.9520 #### [facility] [address] [place], [address] Glucose [Mass/Vol] 98 mg/dL Normal 70-99 [facility] Comment on above: Performed By: #### L 503.0106, BTS, L500.4050, L100.0100, L501.9520 #### [facility] [address] [place], [address] Potassium [Moles/Vol] 3.5 mmol/L Normal 3.3-5.1 [facility] Comment on above: Performed By: #### L 503.0106, BTS, L500.4050, L100.0100, L501.9520 #### [facility] [address] [place], [address] Sodium [Moles/Vol] 134 mmol/L Normal 133-145 [facility] Comment on above: Performed By: #### L 503.0106, BTS, L500.4050, L100.0100, L501.9520 #### [facility] [address] [place], [address] T PROT 6.3 g/dL Normal 5.9-8.4 [facility] Comment on above: Performed By: #### L 503.0106, BTS, L500.4050, L100.0100, L501.9520 #### [facility] [address] [place], [address] Urea nitrogen [Mass/Vol] 13 mg/dL Normal 4-19 [facility] Comment on above: Performed By: #### L 503.0106, BTS, L500.4050, L100.0100, L501.9520 #### [facility] [address] [place], [address] Consultation - Orthopedicson 01-20-2025 Consultation - Orthopedics [facility] Medical Records Department [address] [place] [address] Consultation - Orthopedics 01/20/25 1415 MR#: [id number] Acct: [id number] Name: MONISHA COHN Rep #: [id number] : 1940 84 From: Braulio Tijerina MD PCP: Tressa Rosales Status:ADM IN Location: MS3 [id number] HPI Consult Data Date of Consult: 01/20/25 HPI Narrative Reason for Consultation: Right hand pain, right hip pain HPI Narrative: MONISHA COHN, is a 84 F with multiple medical comorbidities and ongoing COVID-19 with treatment that is current who presents with right hip pain. Patient is known to our practice she did have a left hip fracture with cephalomedullary nail 2 years ago with my partner. Patient notes that she lives in a prison facility and ambulates with a walker or uses a wheelchair. She does not walk independently. She was reported to have fallen yesterday and sustained an injury to her right hand and hip. She was seen at an outside hospital and requested transfer to [place] as they did not have orthopedics. She was placed in a ulnar gutter splint for her right hand pain and right hip pain. Patient today reports 6 out of 10 pain in the right thigh and groin region worse with motion better with immobilization. Patient denies any new associated paresthesias. Patient is unable to walk at this time due to the pain. Patient denies history of blood clots. Patient denies any current treatment or active malignancies. [facility] Medical History Nocturia Urge incontinence Overactive bladder Former tobacco use Depression Hypertension Fall [facility] (closed head injury) Presence of stent in coronary artery ( 12/22/21) Atherosclerotic heart disease of [place] coronary artery without angina pectoris ST elevation myocardial infarction (STEMI) of inferior wall ( 12/22/21) Essential (primary) hypertension Parkinsons disease Urgency of urination Gout Cardiogenic shock Non-rheumatic mitral regurgitation Non-rheumatic tricuspid valve insufficiency Pulmonary hypertension Emphysema with chronic bronchitis Fibromyalgia Hyperlipidemia CAD (coronary artery disease) Bladder spasms Edema, lower extremity Myocardial infarction Home Medications ???Medication ???Instructions ???Recorded ???Last Taken ???Type aspirin 81 mg tablet,delayed 81 mg PO DAILY blood thinner 02/2505/01/23 History release (Adult Aspirin Regimen) acetaminophen 325 mg capsule 650 mg PO Q6H PRN fever or pain 04/29/23 History atorvastatin 40 mg tablet 40 mg PO QHS hld 05/01/23 04/30/23 History polyethylene glycol 3350 17 17 g PO DAILY 05/01/23 05/01/23 Hi story gram/dose oral powder (ClearLax) psyllium husk 3.4 gram/5.4 gram 1 tbsp PO DAILY 05/01/23 04/30/23 History oral powder (Stacie-Mucil) alendronate 70 mg tablet 70 mg PO QWEEK osteoporosis Unknown History carbidopa 25 mg-levodopa 100 mg 2 tab PO DAILY parkinson 09/27/24 Unknown History tablet celecoxib 200 mg capsule 200 mg PO QDAY 09/27/24 Unknown Hi story duloxetine 20 mg capsule,delayed 20 mg PO QDAY 09/27/24 Unknown His tory release tramadol 50 mg tablet 50 mg PO TID PRN pain 09/27/24 Unk nown History guaifenesin 100 mg/5 mL oral liquid 200 mg PO Q4H PRN cough 5 Unknown History melatonin 3 mg capsule 3 mg PO HS PRN sleep 12/28/24 Unkn own History simethicone 125 mg chewable tablet 125 mg PO QD-BID PRN abdominal 0 12/28/24 Unknown History (Mylanta Gas) distention ascorbic acid (vitamin C) 500 mg 500 mg PO DAILY supplement 5 Unknown History capsule carbidopa 25 mg-levodopa 100 mg 1.5 tab PO TID parkinson 01/20/25 Unknown History tablet (Dhivy) cholecalciferol (vitamin D3) 50 50 mcg PO DAILY supplement 5 Unknown History mcg (2,000 unit) capsule cyanocobalamin (vitamin B-12) 5,000 mcg PO DAILY supplement 01/11 Unknown History 5,000 mcg capsule mirabegron 50 mg tablet,extended 50 mg PO DAILY bladder 01/20/25 Un known History release 24 hr (Myrbetriq) nirmatrelvir 300 mg (150 mg See Rx Instructions PO .COMPLEX Unknown History x2)-ritonavir 100 mg tablet,dose pack (Paxlovid) Allergy/AdvReac Type Severity Reaction Status Date / Time oxycodone (From Percocet) Allergy Severe Hives Verified 01/20/25 01:40 Family History Father Heart disease Surgical History S/P appendectomy History of hysterectomy History of ankle surgery Presence of coronary angioplasty implant and graft Social History household members: friend(s) Smoking Status: Former smoker pack-years: 30 Tobacco: How (more content not included)... Normal [facility] Decalcification bone/plaqueo n 01-20-2025 Decalcification bone/plaque ---- Patient Age/Sex Location Account Attending Physician ---- MONISHA COHN 84/F MS3 [id number] Dr. Davian Kelly MD ---- Specimen: [id number] Received: 01/23/25 Status: CAROL Mccauley Num: [id number] Spec Type: TOTAL HIP Subm Dr: Dr. Braulio Tijerina MD HEADER OPERATION: Hemiarthroplasty, hip PRE-OP DIAGNOSIS: Subcapital fracture of right femur TISSUE SUBMITTED: A- Right hip bone ---- MICROSCOPIC DIAGNOSIS A. 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 * Trilineage hematopoiesis. * Focal acute hemorrhage suggestive of fracture. MICROSCOPIC DESCRIPTION Slides are reviewed. GROSS DESCRIPTION A. Received in formalin labeled with the patient's name and date of . Designated as right hip bone is a 4.5 x 4.1 x 3.9 cm slightly irregular, ovoid femoral head with attached femoral neck, 1.2 cm in length by 3.9 cm in diameter. The resection margin is congested. The articular cartilage is tapia-red and somewhat granular; there is a portion of the detached cartilage measuring 3.0 x 1.8 cm. Definitive eburnation is not identified however, there is focal mild peripheral osteophyte formation. Sectioning reveals tapia-yellow to congested medullary bone. No definitive lesions are identified. Steam Drier Operator sections are submitted in 2 cassettes, following decalcification, as follows: A1: Articular cartilage, including area of detached cartilageA2: Congested medullary bone, area of detached cartilage PA 01/23/2025 [facility]:[id number] ---- Patient Age/Sex Location Account Attending Physician ---- MONISHA COHN 84/F MS3 [id number] Dr. Davian Kelly MD ---- Signed (signature on file) Dr. Debbie Corea MD 01/27/25 1357 ---- Normal [facility] Comment on above: Performed By: #### L 503.0106, BTS, L500.4050, L100.0100, L501.9520 #### [facility] [address] [place], [address] ED NOTEon 01-20-2025 ED NOTE HNO ID: [id number] Author: FLORIDALMA SZYMANSKI, RN Service: Emergency Medicine Author Type: Registered Nurse Type: ED Notes Filed: 01/20/2025 00:07 Note Text: [facility] here, chart and report provided along with disk of films Normal [facility] Eosinophil percentageOrdered By: Stephan Beard on 01-20-2025 Eosinophils/100 WBC (Bld) 0.1 % 0-5 [facility] Folate [Mass/volume] in Seru m or PlasmaOrdered By: Stephan Beard on 01-20-2025 Folate [Mass/Vol] 6.23 ng/mL 4.60-34.80 [facility] Comment on above: Hemolysis, Results w ill be affected, Requires Recollection. Folates,Serum (Folic Acid)on 01-20-2025 FOLATES,SERUM 6.23 ng/mL Normal 4.60-34.80 [facility] Comment on above: Result Comment: Hemo lysis, Results will be affected, Requires Recollection. Performed By: #### L 503.0106, BTS, L500.4050, L100.0100, L501.9520 #### [facility] [address] [place], [address] H AND P Exam - Hospitaliston 01-20-2025 H&P Exam - Hospitalist [facility] Medical Records Department [address] [place] [address] H P Exam - Hospitalist 01/20/25 0112 MR#: [id number] Acct: [id number] Name: MONISHA COHN Rep #: [id number] : 1940 84 From: Stephan Martel DO PCP: Tressa Rosales Status:ADM IN Location: [facility] [place] [id number] [facility] - General General Date of Admission: 01/20/25 Date of Service: 01/20/25 Chief Complaint: Fall with Right Hip Fracture. HPI Narrative MONISHA COHN, is a 84 F with a past medical history of essential hypertension; currently not on treatment, hyperlipidemia; on atorvastatin, former tobacco abuse; with subsequent COPD and pulmonary hypertension, CAD; with RCA stent at [facility] in [place] (2009) and subsequent inferior wall ST elevation [place] s/p RCA stent with cardiogenic shock and cardiac arrest x 3 (2021) on baby aspirin daily, history of nonrheumatic mitral/tricuspid valve insufficiency, Parkinson's disease; on carbidopa-levodopa 3 times daily, fibromyalgia, depression; on duloxetine, history of argyria (bluish skin discoloration); attributed to taking colloidal silver for protracted period of time, OAB; on mirabegron, chronic constipation; on polyethylene glycol daily plus simethicone twice daily as needed, history of gout; currently not on treatment, osteoporosis; on alendronate weekly, OA; on celecoxib plus tramadol 3 times daily as needed and recently diagnosed GENA-19 who was transferred from [facility] after she was diagnosed with an impacted Right femoral neck fracture in the setting of already being on nirmatrelvir-ritonavir . According to the records the patient was at her ECF when she sustained a mechanical fall onto her Right side with subsequent inability to ambulate. She was noted to have a scalp hematoma with a metacarpal fracture of her Right hand but she denied LOC with her fall. Dr. [facility] of [facility] spoke to Dr. Tijerina of the orthopedic service here who recommended admission to the hospitalist service with formal consultation pending in the a.m. for ORIF. She was then admitted to the general medical floor for ongoing care for stay that is expected to extend beyond 2 midnights. [facility] Medical History Nocturia Urge incontinence Overactive bladder Former tobacco use Depression Hypertension Fall [facility] (closed head injury) Presence of stent in coronary artery ( 12/22/21) Atherosclerotic heart disease of [place] coronary artery without angina pectoris ST elevation myocardial infarction (STEMI) of inferior wall ( 12/22/21) Essential (primary) hypertension Parkinsons disease Urgency of urination Gout Cardiogenic shock Non-rheumatic mitral regurgitation Non-rheumatic tricuspid valve insufficiency Pulmonary hypertension Emphysema with chronic bronchitis Fibromyalgia Hyperlipidemia CAD (coronary artery disease) Bladder spasms Edema, lower extremity Myocardial infarction Home Medications ???Medication ???Instructions ???Recorded ???Last Taken ???Type aspirin 81 mg tablet,delayed 81 mg PO DAILY blood thinner 02/2505/01/23 History release (Adult Aspirin Regimen) acetaminophen 325 mg capsule 650 mg PO Q6H PRN fever or pain 04/29/23 History atorvastatin 40 mg tablet 40 mg PO QHS hld 05/01/23 04/30/23 History polyethylene glycol 3350 17 17 g PO DAILY 05/01/23 05/01/23 Hi story gram/dose oral powder (ClearLax) psyllium husk 3.4 gram/5.4 gram 1 tbsp PO DAILY 05/01/23 04/30/23 History oral powder (Stacie-Mucil) alendronate 70 mg tablet 70 mg PO QWEEK osteoporosis Unknown History carbidopa 25 mg-levodopa 100 mg 2 tab PO DAILY parkinson 09/27/24 Unknown History tablet celecoxib 200 mg capsule 200 mg PO QDAY 09/27/24 Unknown Hi story duloxetine 20 mg capsule,delayed 20 mg PO QDAY 09/27/24 Unknown His tory release tramadol 50 mg tablet 50 mg PO TID PRN pain 09/27/24 Unk nown History guaifenesin 100 mg/5 mL oral liquid 200 mg PO Q4H PRN cough 5 Unknown History melatonin 3 mg capsule 3 mg PO HS PRN sleep 12/28/24 Unkn own History simethicone 125 mg chewable tablet 125 mg PO QD-BID PRN abdominal 0 12/28/24 Unknown History (Mylanta Gas) distention ascorbic acid (vitamin C) 500 mg 500 mg PO DAILY supplement 5 Unknown History capsule carbidopa 25 mg-levodopa 100 mg 1.5 tab PO TID parkinson 01/20/25 Unknown History tablet (Dhivy) cholecalciferol (vitamin D3) 50 50 mcg PO DAILY supplement 5 Unknown History mcg (2,000 unit) capsule cyanocobalamin (vitamin B-12) 5,000 mcg PO DAILY supplement 01/11 Unknown History 5,000 mcg capsule mirabegron 50 mg tablet,extended 50 mg PO DAILY bladder 01/20/25 Un known History release 24 hr (Myrbetriq) nirmatrelvir 300 mg (150 mg See Rx Instructions PO .COMPLEX (more content not included)... Normal [facility] Hip Min 2 Views (Portable)on 01-20-2025 Hip Min 2 Views (Portable) [facility] Imaging Services [address] [place] [address] Hip Min 2 Views (Portable) MR#: [id number] Acct: [id number] Name: MONISHA COHN Rep #: [id number] : 1940 F 84 From: Law brewster MD PCP: Tressa Rosales Status: ADM IN Study: Hip Min 2 Views (Portable) Date of Exam: 01/20 Exam# [id number] Ordering Dr: Braulio Tijerina MD PROCEDURE: HIP MIN 2 VIEWS (PORTABLE) 01/20/2025 REASON FOR EXAM: POST OP TECHNIQUE: Procedure Code: RADH_P Modality: DX Procedure: HIP MIN 2 VIEWS (PORTABLE) Laterality: FINDINGS: Right hip hemiarthroplasty appears well-positioned without complication. Left femoral nail with screws. Severe bony hypertrophic changes extending from the lesser trochanteric region to the femoral head. Hypertrophic and possibly posttraumatic changes of the greater trochanter. RAD/Hip Min 2 Views (Portable) IMPRESSION: Uncomplicated appearing right hip hemiarthroplasty. Left hip chronic and surgical changes. Reading Location[facility] CC: Dr. Braulio Tijerina MD; Tressa Rosales Learning Developer: Signed Normal [facility] Hip Min 2 Views (Portable) [facility] Imaging Services [address] [place] [id number] Hip Min 2 Views (Portable) MR#: [id number] Acct: [id number] Name: MONISHA COHN Rep #: [id number] : 1940 F 84 From: Law brewster MD PCP: Tressa Rosales Status: ADM IN Study: Hip Min 2 Views (Portable) Date of Exam: 01/20 Exam# [id number] Ordering Dr: Braulio Tijerina MD PROCEDURE: HIP MIN 2 VIEWS (PORTABLE) 01/20/2025 REASON FOR EXAM: MALLIKA HIP TECHNIQUE: Procedure Code: RADH_P Modality: DX Procedure: HIP MIN 2 VIEWS (PORTABLE) Laterality: FINDINGS: Multiple spot fluoroscopic images of right hip procedure reveal screw in the left femoral head and incompletely assessed left hip with osseous hypertrophic changes about the proximal left femur. Right hip hemiarthroplasty was performed, with uncomplicated appearance on the final view. No other abnormality. RAD/Hip Min 2 Views (Portable) IMPRESSION: Uncomplicated appearing right hip hemiarthroplasty. Left hip surgical and chronic changes. Reading Location: [facility] CC: Dr. Braulio Tijerina MD; Tressa Rosales Learning Developer: Signed Normal [facility] Immature granulocytes/100 WB C Auto (Bld)Ordered By: Stephan Beard on 01-20-2025 Immature granulocytes/100 WBC (Bld) 0.400 % 0.0-0.9 [facility] Comment on above: IG% - Immature Granu locytes (promyelocytes, myelocytes and metamyelocytes) > 1% indicates that a LEFT SHIFT is Present. Ketones Test strip Ql (U)Ord ered By: Stephan Beard on 01-20-2025 Ketones Ql (U) 15 mg/dl High Negative [facility] L501.4021on 01-20-2025 Trop T High Sen 27 ng/L High <=14 [facility] Comment on above: Performed By: #### L 503.0106, BTS, L500.4050, L100.0100, L501.9520 #### [facility] [address] [place], [address] Laboratory - Chemistry and C hemistry - challengeOrdered By: Stephan Beard on 01-20-2025 AST [Catalytic activity/Vol] 19 U/L <32 [facility] MR/POSTOP.ANEon 01-20-2025 MR/POSTOP.ANE [facility] Medical Records Department [address] [place] [address] Anesthesia Postop Eval I 01/20/25 1715 MR#: [id number] Acct: [id number] Name: MONISHA COHN Rep #: [id number] : 1940 84 From: Brennen Rojas CRNA PCP: Tressa Rosales Status:ADM IN Y Race: C Location: NH3 [id number] Anesthesia: Postop Eval I Current Vital Signs Temperature: 97.1 F Pulse Rate: 86 Blood Pressure: 142/56 Respiratory Rate: 16 Pulse Ox: 90 Oxygen Delivery Method: Room Air Assessment Airway patent: Yes Spontaneous unlabored respirations: Yes Mental status: Awake and Calm nausea: No Vomiting: No Anesthesia Complication: No Fluid Hydration Crystalloid volume administer (ml): 600 Total IV fluid infused: 600 Progress Note Post-operative progress note: Assessment time:1618 Anesthesia document: Postop Eval 1 completed: Yes 01/20/251716 Date Brennenjoni Chilelrichmond JULIAN Cosigner Signature: CC: Signed Normal [facility] MR/[id number] 01-20-2025 [facility] Medical Records Department [address] [place] [address] Anesthesia Postop Eval II 01/20/251705 MR#: [id number] Acct: [id number] Name: MONISHA COHN Rep #: [id number] : 1940 84 From: Jareth Shepard MD PCP: Tressa Rosales Status:ADM IN Y Race: C Location: [facility] [place] OS251-3 Anesthesia Postop Eval I Sum Anesthesia Postop Eval I Summary Anesthesia Postop Eval I Summary: Anesthesia Postop Eval I: Assessment Summary Airway patent Spontaneous unlabored respirations Mental status nausea Vomiting Anesthesia Postop Eval I: Fluid Summary Crystalloid volume administer (ml) Colloids volume administered ( ml) Blood Product volume administered (ml) Total IV fluid infused Anesthesia Postop Eval I: Summary Notes Anesthesia Complication Anesthesia Complication Comment: Post-operative progress note Anesthesia: Postop Eval II Evaluation Mental status: Awake and Calm Pain Level: 1 nausea: No Vomiting: No Complications Anesthesia Complication: No 01/20/251705 Date Jareth Shepard MD Cosigner Signature: Date CC: Signed Normal [facility] Microscopic analysis of urin e for red blood cells (RBC)Ordered By: Stephan Beard on 01-20-2025 Microscopic analysis of urine for red blood cells (RBC) 0 SEEN /hpf 0-5 [facility] Monocyte percentageOrdered B y: Stephan Beard on 01-20-2025 Monocytes/100 WBC (Bld) 7.2 % 0-10 [facility] Mucus LM Ql (Urine sed)Order ed By: Stephan Beard on 01-20-2025 Mucus Ql (Urine sed) 0 SEEN /hpf [facility] Neutrophil percentageOrdered By: Stephan Beard on 01-20-2025 Neutrophils/100 WBC (Bld) 81.1 % High 47-70 [facility] Nitrite Test strip Ql (U)Ord ered By: Stephan Beard on 01-20-2025 Nitrite Ql (U) Negative Negative [facility] Nucleated red blood cell per centageOrdered By: Stephan Beard on 01-20-2025 Nucleated RBC/100 WBC (Bld) [Ratio] 0 % 0-5 [facility] Operative Reporton Operative Report [facility] Medical Records Department [address] [place] [address] Operative Report 01/20/25 1545 MR#: [id number] Acct: [id number] Name: MONISHA COHN Rep #: [id number] : 1940 84 From: Braulio Tijerina MD PCP: Tressa Rosales Status:ADM IN [id number] Operative Report (Standard) Operative Information Date of Procedure: 01/20/25 Pre-Operative Diagnosis: Right hip subcapital femoral neck fracture Post-Operative Diagnosis: Right hip subcapital femoral neck fracture Surgery/Procedure Performed: Right hip endoprosthesis helmet hat puncher: Yes Stain Remover: Edyta Bhatti Tasks completed by life enrichment assistant: Opening, Closing, Implanting device and Retracting Additional accounts receivable assistant?: No Type of Anesthesia: General RN Documented Start/Stop Times: Operation Date: 01/20/25 14:15 Case Time Into Pre-Op 01/20/25 12:50 Anesthesia Start 01/20/25 14:25 Into Room 01/20/25 14:25 Procedure Start 01/20/25 14:48 Procedure End 01/20/25 15:54 Anesthesia End 01/20/25 16:11 Out of Room 01/20/25 16:11 Into Recovery 01/20/25 16:15 Out of Recovery 01/20/25 17:06 Procedure Start Time: 14:48 Procedure Stop Time: 15:54 Select all DRAINS/GRAFTS/IMPLANTS that apply: Prosthetic device Prosthetic device details: See body of operative report Special Medications: 2 g Ancef, 2 g TXA's lavage and end of case Estimated Blood Loss: 350 Fluids Replaced: 600 mL crystalloid Specimen collected: Yes Description of specimen(s) removed: Femoral head fracture sent to specimen Description of surgery: Components used: 1. Yumiko insignia femoral stem size 4 high offset 2. Yumiko Unitrax cobalt-chromium 43 mm femoral head with -4 mm sleeve Procedure: On the date of procedure the patient's R hip was marked in the preoperative area. Patient was then taken back to the operating room where anesthesia assumed control of the C-spine and airway and administered anesthetic. Patient was transferred to the operating table and placed in the supine position. The hips were placed the break of the bed and a bump was placed in the sacrum. The R lower extremity was then prepped out in a sterile fashion using chlorhexidine while the surgeon scrubbed. Upon reentering the room the R lower extremity was draped in the standard orthopedic fashion and the incision was marked. A timeout was called and everyone agreed upon the side, the site, the procedure be performed, antibody given, and patient's identity. At this time incision was made through skin, subcutaneous tissue, and fat down to fascia. The fascia was then incised and the TFL was retracted laterally. A retractor was placed on the lateral border of the femoral neck. Attention was directed to the inferior portion of the approach and all crossing vessels were identified and appropriately coagulated. A retractor was then placed on the medial portion of the femoral neck. The anterior capsule was then cleared of all soft tissue and then H shaped capsulotomy was made. The retractors were then placed inside the capsule. The femoral neck was identified and a cleanup cut was made. At this time a power corkscrew was used to remove the femoral head. The femoral head was measures and a 43 mm unipolar component was selected. Soft tissue releases on the medial and lateral femoral neck were appropriately done, the leg was externally rotated and lateralized. A [place] retractor was placed medially and proximally to the greater trochanter this allowed appropriate visualization and exposure of the femoral canal. Rongeour was then used to remove excess lateral bone. A canal finder and entry broach were used to open the proximal canal. Once we verified we were down the femoral canal we subsequently broached up to a size 4 femur. The appropriate neck was placed in the previously selected head was trialed with a -4mm neck. Traction was pulled and the hip was reduced with internal rotation. Once it was appropriately reduced and stability was checked. There was minimal shuck, equal leg lengths and appropriate stability with hyperextension and external rotation as well as with 90??? flexion and internal rotation. The trial components were then dislocated the proximal femur was again exposed and the components were removed from the wound. The final components were verified and opened. The wound was copiously irrigated out with normal saline. The acetabulum was checked for any residual debris. The final components were placed and impacted. Traction and internal rotation were again used to reduce the hip. After adequate reduction the hip remained stable with appropriate leg lengths. The wound was then copiously irrigated with normal saline once more, and hemostasis was obtained. Closure was then done using #1 Vicryl runner to close the fascia. A 2-0 Vicryl runner was used to close the emmanuel (more content not included)... Normal [facility] Phosphoruson 01-20-2025 Phosphate [Mass/Vol] 2.4 mg/dL Low 2.7-4.5 [facility] Comment on above: Performed By: #### L 501.2300 #### [facility] [address] [place], [address] Protein Test strip Ql (U)Ord ered By: Stephan Beard on 01-20-2025 Protein Ql (U) 15 mg/dl High Negative [facility] Serum globulin measurementOr dered By: Stephan dela cruz 01-20-2025 Globulin (S) [Mass/Vol] 2.7 g/dL 2.2-4.2 [facility] Serum or plasma alanine swenson otransferase (ALT) measurementOrdered By: Stephan Beard on 01-20-2025 ALT [Catalytic activity/Vol] U/L <35 [facility] Serum or plasma albumin taylor urement (mass/volume)Ordered By: Stephan Beard on 01-20-2025 Albumin [Mass/Vol] 3.6 g/dL 3.4-4.8 [facility] Serum or plasma albumin/glob ulin mass ratioOrdered By: Stephan Beard on 01-20-2025 Albumin/Globulin [Mass ratio] 1.4 {ratio} 0.9-2.4 [facility] Serum or plasma alkaline nhi sphatase measurementOrdered By: Stephan Beard on 01-20-2025 ALP [Catalytic activity/Vol] 51 U/L 35-104 [facility] Squamous epithelial cells de tection in urine sediment by light microscopyOrdered By: Stephan Beard on 01-20-2025 Epithelial cells.squamous LM Ql (Urine sed) 0 SEEN /hpf -10 [facility] TSH DL <= 0.005 mIU/L QnOrde red By: Stephan Beard on 01-20-2025 TSH Qn 1.900 uIU/mL 0.300-4.200 [facility] Thyroid Stim Hormone (TSH)on 01-20-2025 TSH 1.900 uIU/mL Normal 0.300-4.200 [facility] Comment on above: Performed By: #### L 503.0106, BTS, L500.4050, L100.0100, L501.9520 #### [facility] [address] [place], [address] Total proteinOrdered By: Melchor Beard on 01-20-2025 Protein [Mass/Vol] 6.3 g/dL 5.9-8.4 [facility] Troponin T HS 2 HRon 025 Trop T High Sen 29 ng/L High <=14 [facility] Comment on above: Performed By: #### L 503.0106, BTS, L500.4050, L100.0100, L501.9520 #### [facility] [address] [place], [address] Troponin T HS 4 HRon 025 Trop T High Sen 28 ng/L High <=14 [facility] Comment on above: Performed By: #### L 503.0106, BTS, L500.4050, L100.0100, L501.9520 #### [facility] [address] [place], [address] Troponin T.cardiac [Mass/vol ume] in Serum or Plasma by High sensitivity methodOrdered By: Stephan Beard on 01-20-2025 Troponin T.cardiac High sensitivity method [Mass/Vol] 28 ng/L High <14 [facility] Troponin T.cardiac High sensitivity method [Mass/Vol] 29 ng/L High <14 [facility] Troponin T.cardiac High sensitivity method [Mass/Vol] 27 ng/L High <14 [facility] Type AND Screenon 01-20-2025 ABO and Rh group Nom (Bld) Blood group B Rh(D) positive Normal [facility] Comment on above: Order Comment: S Performed By: #### L 503.0106, BTS, L500.4050, L100.0100, L501.9520 #### [facility] [address] [place], [address] Urinalysis, Completeon 01-20 BACTERIA 0 SEEN Normal None Seen [facility] Comment on above: Order Comment: CLEAN CATCH Performed By: #### L 503.0106, BTS, L500.4050, L100.0100, L501.9520 #### [facility] [address] [place], [address] EPI,SQUAMOUS 0 SEEN Normal -10 [facility] Comment on above: Order Comment: CLEAN CATCH Performed By: #### L 503.0106, BTS, L500.4050, L100.0100, L501.9520 #### [facility] [address] [place], [address] Mucus Ql (Urine sed) 0 SEEN Normal [facility] Comment on above: Order Comment: CLEAN CATCH Performed By: #### L 503.0106, BTS, L500.4050, L100.0100, L501.9520 #### [facility] [address] [place], [address] RBC 0 SEEN Normal 0-5 [facility] Comment on above: Order Comment: CLEAN CATCH Performed By: #### L 503.0106, BTS, L500.4050, L100.0100, L501.9520 #### [facility] [address] [place], [address] WBC 0 SEEN Normal 0-5 [facility] Comment on above: Order Comment: CLEAN CATCH Performed By: #### L 503.0106, BTS, L500.4050, L100.0100, L501.9520 #### [facility] [address] [place], [address] Urine clarityOrdered By: Melchor Beard on 01-20-2025 Clarity (U) Sl. Cloudy Clear [facility] Urine color determinationOrd ered By: tSephan Beard on 01-20-2025 Color (U) Yellow Yellow [facility] Urine glucose detectionOrder ed By: Stephan Beard on 01-20-2025 Glucose Ql (U) Normal mg/dl Normal [facility] Urine leukocyte esterase det ection by dipstickOrdered By: Stephan Beard on 01-20-2025 Leukocyte esterase Test strip Ql (U) Negative Negative [facility] Urine pHOrdered By: Stephan hagen on 01-20-2025 pH (U) 6.5 [pH] 5.0 - 8.0 [facility] Urine sediment bacteria coun t by microscopy (number/high power field)Ordered By: Stephan Beard on 01-20-2025 Bacteria LM.HPF (Urine sed) [#/Area] 0 /[HPF] None Seen [facility] Urine specific gravity measu rementOrdered By: Stephan Beard on 01-20-2025 Specific gravity (U) [Rel density] 1.010 1.002-1.030 [facility] Urine urobilinogen measureme ntOrdered By: Stephan Beard on 01-20-2025 Urobilinogen Ql (U) Normal mg/dl Normal [facility] Vitamin B12on 01-20-2025 Cobalamin (Vitamin B12) [Mass/Vol] 1234 pg/mL High 180-914 [facility] Comment on above: Performed By: #### L 503.0106, BTS, L500.4050, L100.0100, L501.9520 #### [facility] [address] [place], [address] Vitamin B12 ser/plasOrdered By: Stephan Beard on 01-20-2025 Cobalamin (Vitamin B12) [Mass/Vol] 1234 pg/mL High 180-914 [facility] White blood cell countOrdere d By: Stephan Beard on 01-20-2025 White blood cell count 0 SEEN /hpf 0-5 [facility] ALLIED HEALTHon 01-19-2025 ALLIED HEALTH HNO ID: [id number] Author: JANNIE MARTINES RT(R) Service: Radiology Author Type: Vegetable Picker Type: Allied Health Filed: 01/19/2025 21:08 Note Text: Radiology Service Progress Note PATIENT NAME: Monisha Cohn DATE OF SERVICE: January 19, 2025 TIME: 9:08 PM PATIENT IDENTITY VERIFICATION COMPLETED USING TWO (2) IDENTIFIERS: Name and Date of confirmed by patient verbally and Name and Date of confirmed by identification band. FALL SCREENING: Has the patient had 2 falls in the last year or 1 fall with injury or currently using an Ambulatory Assistive Device (Walker, Cane, Wheelchair, Crutches, etc.)? Emergency Room Patient: Screened in ED PATIENT GENDER DATA: Assigned female at . status: status: N/A PATIENT RELEVANT IMPLANT DATA REVIEWED: Yes PATIENT PRESENTS WITH AN IMPLANTABLE OR ATTACHED ACID LOADER: No RADIOLOGY DEPARTMENT: CT; Exam(s) Completed: Brain and Spine . Anesthesia: No PERIPHERAL IV DATA: Not applicable SIGNED BY: Jannie Martines RT(R) January 19, 2025 9:08 PM Normal [facility] Basic metabolic 2000 panelon 01-19-2025 Anion gap [Moles/Vol] 11 mmol/L Normal 8-15 [facility] Comment on above: Order Comment: Speci men Type: BLOOD SPECIMEN Ordering Facility: [facility] Address: [address] [place] [address] Performed By: #### 2 4321-2 #### [facility] CLIA [id number] [address] [place] [address] [place] Calcium [Mass/Vol] 8.7 mg/dL Normal 8.5-10.2 [facility] Comment on above: Order Comment: Speci men Type: BLOOD SPECIMEN Ordering Facility: [facility] Address: [address] [place] [address] Performed By: #### 2 4321-2 #### [facility] CLIA [id number] [address] [place] [address] [place] Chloride [Moles/Vol] 100 mmol/L Normal 98-107 [facility] Comment on above: Order Comment: Speci men Type: BLOOD SPECIMEN Ordering Facility: [facility] Address: [address] [place] [address] Performed By: #### 2 4321-2 #### [facility] CLIA [id number] [address] [place] [address] [place] CO2 [Moles/Vol] 23 mmol/L Normal 22-30 [facility] Comment on above: Order Comment: Speci men Type: BLOOD SPECIMEN Ordering Facility: [facility] Address: [address] [place] [address] Performed By: #### 2 4321-2 #### [facility] CLIA [id number] [address] [place] [address] [place] Creatinine [Mass/Vol] 0.76 mg/dL Normal 0.58-0.96 [facility] Comment on above: Order Comment: Liza granados Type: BLOOD SPECIMEN Ordering Facility: [facility] Address: [address] [place] [address] Performed By: #### 2 4321-2 #### [facility] CLIA [id number] [address] [place] [address] [place] eGFRcr SerPlBld CKD-EPI 2020 78 mL/min/1.73m??? Normal >=60 [facility] Comment on above: Order Comment: Liza granados Type: BLOOD SPECIMEN Ordering Facility: [facility] Address: [address] [place] [address] Result Comment: Rachael mated Glomerular Filtration Rate (eGFR) is calculated using the 2020 CKD-EPI creatinine equation. This equation utilizes serum creatinine, sex, and age as parameters. The creatinine assay has traceable calibration to isotope dilution-mass spectrometry. Refer to KDIGO guidelines for clinical interpretation. In patients with unstable renal function, e.g. those with acute kidney injury, the eGFR may not accurately reflect actual GFR. Performed By: #### 2 4321-2 #### [facility] CLIA [id number] [address] [place] [address] [place] Glucose [Mass/Vol] 100 mg/dL High 74-99 [facility] Comment on above: Order Comment: Liza granados Type: BLOOD SPECIMEN Ordering Facility: [facility] Address: [address] [place] [address] Result Comment: The [place] Diabetes [employer] (ADA) provides guidance for cutoff values for fasting glucose and random glucose. The ADA defines fasting as no caloric intake for at least 8 hours. Fasting plasma glucose results between 100 to 125 mg/dL indicate increased risk for diabetes (prediabetes). Fasting plasma glucose results greater than or equal to 126 mg/dL meet the criteria for diagnosis of diabetes. In the absence of unequivocal hyperglycemia, results should be confirmed by repeat testing. In a patient with classic symptoms of hyperglycemia or hyperglycemic crisis, random plasma glucose results greater than or equal to 200 mg/dL meet the criteria for diagnosis of diabetes. Reference: Standards of Medical Care in Diabetes 2016, [place] [employer]. Diabetes Care. 2016.39(Suppl 1). Performed By: #### 2 4321-2 #### [facility] CLIA [id number] [address] [place] [address] [place] Potassium [Moles/Vol] 3.8 mmol/L Normal 3.7-5.1 [facility] Comment on above: Order Comment: Speci men Type: BLOOD SPECIMEN Ordering Facility: [facility] Address: [address] [place] [address] Performed By: #### 2 4321-2 #### [facility] CLIA [id number] [address] [place] [address] [place] Sodium [Moles/Vol] 134 mmol/L Low 136-144 [facility] Comment on above: Order Comment: Speci men Type: BLOOD SPECIMEN Ordering Facility: [facility] Address: [address] [place] [address] Performed By: #### 2 4321-2 #### [facility] CLIA [id number] [address] [place] [address] [place] Urea nitrogen [Mass/Vol] 14 mg/dL Normal 7-21 [facility] Comment on above: Order Comment: Speci men Type: BLOOD SPECIMEN Ordering Facility: [facility] Address: [address] [place] [address] Performed By: #### 2 4321-2 #### [facility] CLIA [id number] [address] [place] CBC W Auto Differential pane l (Bld)on 01-19-2025 Basophils (Bld) [#/Vol] 10*3/uL Normal <0.11 [facility] Comment on above: Order Comment: Speci men Type: BLOOD SPECIMEN Ordering Facility: [facility] Address: [address] [place] [address] Performed By: #### 5 7021-8 #### [facility] CLIA [id number] [address] [place] [address] [facility] [place] Basophils/100 WBC (Bld) 0.3 % Normal [facility] Comment on above: Order Comment: Speci men Type: BLOOD SPECIMEN Ordering Facility: [facility] Address: [address] [place] [address] Performed By: #### 5 7021-8 #### [facility] CLIA [id number] [address] [place] [address] [place] Differential cell count method Nom (Bld) Auto Normal [facility] Comment on above: Order Comment: Speci men Type: BLOOD SPECIMEN Ordering Facility: [facility] Address: [address] [place] [address] Performed By: #### 5 7021-8 #### [facility] CLIA [id number] [address] [place] [address] [place] Eosinophils (Bld) [#/Vol] 10*3/uL Normal <0.46 [facility] Comment on above: Order Comment: Speci men Type: BLOOD SPECIMEN Ordering Facility: [facility] Address: [address] [place] [address] Performed By: #### 5 7021-8 #### [facility] CLIA [id number] [address] [place] [address] [place] Eosinophils/100 WBC (Bld) 0.3 % Normal [facility] Comment on above: Order Comment: Speci men Type: BLOOD SPECIMEN Ordering Facility: [facility] Address: [address] [place] [address] Performed By: #### 5 7021-8 #### [facility] CLIA [id number] [address] [place] [address] [place] Erythrocyte distribution width (RBC) [Ratio] 13.1 % Normal 11.5-15.0 [facility] Comment on above: Order Comment: Speci men Type: BLOOD SPECIMEN Ordering Facility: [facility] Address: [address] [place] [address] Performed By: #### 5 7021-8 #### [facility] CLIA [id number] [address] [place] [address] [place] Hematocrit (Bld) [Volume fraction] 35.9 % Low 36.0-46.0 [facility] Comment on above: Order Comment: Speci men Type: BLOOD SPECIMEN Ordering Facility: [facility] Address: [address] [place] [address] Performed By: #### 5 7021-8 #### [facility] CLIA [id number] [address] [place] [address] [place] Hemoglobin (Bld) [Mass/Vol] 11.3 g/dL Low 11.5-15.5 [facility] Comment on above: Order Comment: Speci men Type: BLOOD SPECIMEN Ordering Facility: [facility] Address: [address] [place] [address] Performed By: #### 5 7021-8 #### [facility] CLIA [id number] [address] [place] [address] [place] Immature granulocytes (Bld) [#/Vol] 10*3/uL Normal <0.10 [facility] Comment on above: Order Comment: Speci men Type: BLOOD SPECIMEN Ordering Facility: [facility] Address: [address] [place] [address] Performed By: #### 5 7021-8 #### [facility] [facility] CLIA [id number] [address] [place] [address] [place] Immature granulocytes/100 WBC (Bld) 0.6 % Normal [facility] Comment on above: Order Comment: Speci men Type: BLOOD SPECIMEN Ordering Facility: [facility] Address: [address] [place] [address] Performed By: #### 5 7021-8 #### [facility] CLIA [id number] [address] [place] [address] [place] Lymphocytes (Bld) [#/Vol] 1.32 10*3/uL Normal 1.00-4.00 [facility] Comment on above: Order Comment: Speci men Type: BLOOD SPECIMEN Ordering Facility: [facility] Address: [address] [place] [address] Performed By: #### 5 7021-8 #### [facility] CLIA [id number] [address] [place] [address] [facility] Lymphocytes/100 WBC (Bld) 40.6 % Normal [facility] Comment on above: Order Comment: Speci men Type: BLOOD SPECIMEN Ordering Facility: [facility] Address: [address] [place] [address] Performed By: #### 5 7021-8 #### [facility] CLIA [id number] [address] [place], [place] [id number] [place] [address] MCH (RBC) [Entitic mass] 27.8 pg Normal 26.0-34.0 [facility] Comment on above: Order Comment: Speci men Type: BLOOD SPECIMEN Ordering Facility: [facility] Address: [address] [place] [address] Performed By: #### 5 7021-8 #### [facility] CLIA [id number] [address] [place], [place] [id number] [place] [address] MCHC (RBC) [Mass/Vol] 31.5 g/dL Normal 30.5-36.0 [facility] Comment on above: Order Comment: Speci men Type: BLOOD SPECIMEN Ordering Facility: [facility] Address: [address] [place] [address] Performed By: #### 5 7021-8 #### [facility] CLIA [id number] [address] [place], [place] [id number] [place] [address] [place] MCV (RBC) [Entitic vol] 88.4 fL Normal 80.0-100.0 [facility] Comment on above: Order Comment: Speci men Type: BLOOD SPECIMEN Ordering Facility: [facility] Address: [address] [place] [address] Performed By: #### 5 7021-8 #### [facility] CLIA [id number] [address] [place] [address] [facility] Monocytes (Bld) [#/Vol] 0.42 10*3/uL Normal <0.87 [facility] Comment on above: Order Comment: Speci men Type: BLOOD SPECIMEN Ordering Facility: [facility] Address: [address] [place] [address] Performed By: #### 5 7021-8 #### [facility] CLIA [id number] [address] [place] [address] [place] Monocytes/100 WBC (Bld) 12.9 % Normal [facility] Comment on above: Order Comment: Speci men Type: BLOOD SPECIMEN Ordering Facility: [facility] Address: [address] [place] [address] Performed By: #### 5 7021-8 #### [facility] CLIA [id number] [address] [place] [address] [place] Neutrophils (Bld) [#/Vol] 1.47 10*3/uL Normal 1.45-7.50 [facility] Comment on above: Order Comment: Speci men Type: BLOOD SPECIMEN Ordering Facility: [facility] Address: [address] [place] [address] Performed By: #### 5 7021-8 #### [facility] CLIA [id number] [address] [place] [address] [place] Neutrophils/100 WBC (Bld) 45.3 % Normal [facility] Comment on above: Order Comment: Speci men Type: BLOOD SPECIMEN Ordering Facility: [facility] Address: [address] [place] [address] Performed By: #### 5 7021-8 #### [facility] CLIA [id number] [address] [place] [address] [place] Nucleated RBC (Bld) [#/Vol] Normal [facility] Comment on above: Order Comment: Speci men Type: BLOOD SPECIMEN Ordering Facility: [facility] Address: [address] [place] [address] Performed By: #### 5 7021-8 #### [facility] CLIA [id number] [address] [place] [address] [place] Nucleated RBC/100 WBC (Bld) [Ratio] Normal [facility] Comment on above: Order Comment: Speci men Type: BLOOD SPECIMEN Ordering Facility: [facility] Address: [address] [place] [address] Performed By: #### 5 7021-8 #### [facility] CLIA [id number] [address] [place] [address] [place] Platelet mean volume (Bld) [Entitic vol] 8.3 fL Low 9.0-12.7 [facility] Comment on above: Order Comment: Speci men Type: BLOOD SPECIMEN Ordering Facility: [facility] Address: [address] [place] [address] Performed By: #### 5 7021-8 #### [facility] CLIA [id number] [address] [place] [address] [place] Platelets (Bld) [#/Vol] 238 10*3/uL Normal 150-400 [facility] Comment on above: Order Comment: Speci men Type: BLOOD SPECIMEN Ordering Facility: [facility] Address: [address] [place] [address] Performed By: #### 5 7021-8 #### [facility] CLIA [id number] [address] [place] [address] [place] RBC (Bld) [#/Vol] 4.06 10*6/uL Normal 3.90-5.20 [facility] Comment on above: Order Comment: Speci men Type: BLOOD SPECIMEN Ordering Facility: [facility] Address: [address] [place] [address] Performed By: #### 5 7021-8 #### [facility] CLIA [id number] [address] [place] [address] [place] WBC (Bld) [#/Vol] 3.25 10*3/uL Low 3.70-11.00 [facility] Comment on above: Order Comment: Speci men Type: BLOOD SPECIMEN Ordering Facility: [facility] Address: [address] [place] [address] Performed By: #### 5 7021-8 #### [facility] CLIA [id number] [address] [place] [address] [place] [address] [address] BRAIN WO IVCONon 01-20-20 CT BRAIN WO IVCON * * *Final Report* * * DATE OF EXAM: Jan 19 2025 9:04PM [facility] - CT BRAIN WO IVCON / PROCEDURE REASON: Head trauma, moderate-severe * * * * Physician Interpretation * * * * EXAMINATION: CT BRAIN WO IVCON, CT CERVICAL SPINE WO IVCON CLINICAL HISTORY: Head trauma, moderate-severe - - Head trauma, moderate-severe (accession [id number]), Neck trauma, uncomplicated (NEXUS/CCR neg) (Age 16-64y) (accession [id number]) - TECHNIQUE: CT head and cervical spine without contrast. MQ: CTBCSWO_3 Dose-Length Product (DLP): 706.22 (accession [id number]), 154.36 (accession [id number]) mGy*cm CT Dose Reduction Employed: Automated exposure control(AEC) and iterative recon COMPARISON: None. RESULT: BRAIN: Post-operative change: None. Acute change: No evidence of an acute intracranial process. Hemorrhage: No evidence of acute intracranial hemorrhage. Mass Lesion / Mass Effect: No evidence of an intracranial mass or extraaxial fluid collection. No significant mass effect. Chronic change: Scattered patchy foci of low attenuation are present within supratentorial white matter which is a nonspecific finding but likely represents mild microvascular ischemia. Parenchyma: Mild to at most mild to moderate volume loss. Ventricles: Ventricular enlargement concordant with the degree of parenchymal volume loss. Other: The calvarium, skull base, imaged paranasal sinuses, mastoids, orbits and extracranial soft tissues are unremarkable. CERVICAL SPINE: Counting reference: Craniocervical junction. Anatomic Variants: None. Alignment: Minimal retrolisthesis of C3 on C4. Otherwise nonspecific straightening of normal lordosis Craniocervical junction: Craniocervical junction is normal. Osseous structures/fracture: No evidence of a lytic or blastic process in the visualized spine. No evidence of acute or chronic fracture. Cervical soft tissues: The paraspinal soft tissues planes are maintained. Degenerative changes: Age-related degenerative changes of the cervical spine without severe central canal stenosis. IMPRESSION: No acute intracranial abnormality. No acute cervical spine fracture. Anatomic Variant: None. Assume 7 cervical vertebrae with counting from the craniocervical junction. Learning Developer: PSCB Transcribe Date/Time: Jan 19 2025 9:06P Dictated by : KERRIE WARNER MD This examination was interpreted and the report reviewed and electronically signed by: KERRIE WARNER MD on Jan 19 2025 9:15PM EST [id number] Normal [facility] CT CERVICAL SPINE WO IVCONon 01-19-2025 CT CERVICAL SPINE WO IVCON * * *Final Report* * * DATE OF EXAM: Jan 19 2025 9:04PM [facility] - CT CERVICAL SPINE WO IVCON / PROCEDURE REASON: Neck trauma, uncomplicated (NEXUS/CCR neg) (Age 16-64y) * * * * Physician Interpretation * * * * EXAMINATION: CT BRAIN WO IVCON, CT CERVICAL SPINE WO IVCON CLINICAL HISTORY: Head trauma, moderate-severe - - Head trauma, moderate-severe (accession [id number]), Neck trauma, uncomplicated (NEXUS/CCR neg) (Age 16-64y) (accession [id number]) - TECHNIQUE: CT head and cervical spine without contrast. MQ: CTBCSWO_3 Dose-Length Product (DLP): 706.22 (accession [id number]), 154.36 (accession [id number]) mGy*cm CT Dose Reduction Employed: Automated exposure control(AEC) and iterative recon COMPARISON: None. RESULT: BRAIN: Post-operative change: None. Acute change: No evidence of an acute intracranial process. Hemorrhage: No evidence of acute intracranial hemorrhage. Mass Lesion / Mass Effect: No evidence of an intracranial mass or extraaxial fluid collection. No significant mass effect. Chronic change: Scattered patchy foci of low attenuation are present within supratentorial white matter which is a nonspecific finding but likely represents mild microvascular ischemia. Parenchyma: Mild to at most mild to moderate volume loss. Ventricles: Ventricular enlargement concordant with the degree of parenchymal volume loss. Other: The calvarium, skull base, imaged paranasal sinuses, mastoids, orbits and extracranial soft tissues are unremarkable. CERVICAL SPINE: Counting reference: Craniocervical junction. Anatomic Variants: None. Alignment: Minimal retrolisthesis of C3 on C4. Otherwise nonspecific straightening of normal lordosis Craniocervical junction: Craniocervical junction is normal. Osseous structures/fracture: No evidence of a lytic or blastic process in the visualized spine. No evidence of acute or chronic fracture. Cervical soft tissues: The paraspinal soft tissues planes are maintained. Degenerative changes: Age-related degenerative changes of the cervical spine without severe central canal stenosis. IMPRESSION: No acute intracranial abnormality. No acute cervical spine fracture. Anatomic Variant: None. Assume 7 cervical vertebrae with counting from the craniocervical junction. Learning Developer: PSCB Transcribe Date/Time: Jan 19 2025 9:06P Dictated by : KERRIE WARNER MD This examination was interpreted and the report reviewed and electronically signed by: KERRIE WARNER MD on Jan 19 2025 9:15PM EST [id number] [facility] ED NOTEon 01-19-2025 ED NOTE HNO ID: [id number] Author: FLORIDALMA SZYMANSKI RN Service: Emergency Medicine Author Type: Registered Nurse Type: ED Notes Filed: 01/19/2025 23:50 Note Text: Oxygen started at 2L/NC per request from Dr. Maurer for sats staying around 90% on RA [facility] ED NOTE HNO ID: [id number] Author: FLORIDALMA SZYMANSKI RN Service: Emergency Medicine Author Type: Registered Nurse Type: ED Notes Filed: 01/19/2025 23:45 Note Text: Patient informed: the name of medication, why we are giving it, possible side effects, what they may expect to feel, and was offered a chance to ask questions, prior to the administration of fentanyl [facility] ED NOTE HNO ID: [id number] Author: FLORIDALMA SZYMANSKI, RN Service: Emergency Medicine Author Type: Registered Nurse Type: ED Notes Filed: 01/19/2025 23:08 Note Text: Called [facility] for transport eta [address] [facility] ED NOTE HNO ID: [id number] Author: FLORIDALMA SZYMANSKI RN Service: Emergency Medicine Author Type: Registered Nurse Type: ED Notes Filed: 01/19/2025 23:04 Note Text: Nursing sewing department supervisor from [facility] called with bed assignment -[facility] -report number [phone] -accepted per Dr. Peters [facility] ED NOTE HNO ID: [id number] Author: FLORIDALMA SZYMANSKI, AUGUSTIN Service: Emergency Medicine Author Type: Registered Nurse Type: ED Notes Filed: 01/19/2025 22:38 Note Text: Drr. Maurer speaking with kimber Martinez separations scientist for Dr. Grier from [facility] [place] per pt request Normal [facility] ED NOTE HNO ID: [id number] Author: DWIGHT YOUNGER, AUGUSTIN Service: ? Author Type: Registered Nurse Type: ED Notes Filed: 01/19/2025 19:00 Note Text: Pt fell from standing position while she was at dinner at the correction. Pt hit her head but denies loc, but does have dizziness. Pt c/o pain in r hand and r hip. Pt is also positive for covid Normal [facility] ED PROV NOTEon 01-19-2025 ED PROV NOTE HNO ID: [id number] Author: RUSSEL MAURER MD Service: Emergency Medicine Author Type: Physician Type: ED Provider Notes Filed: 01/19/2025 23:51 Note Text: ED Provider Note Patient Name: Monisha Cohn : 1940 SERVICE DATE: 01/19/25 History Patient presents with: Fall Monisha Cohn is a 84 year old female with history of parkinsonism who presents with Fall. Patient took nothing for this prior to arrival. - Symptoms began this evening. - Severity: moderate - Timing: constant - Quality: sore - Fall is exacerbated by movement. - Fall is not exacerbated by rest. - Symptoms are associated with hit head and right hand - Symptoms are not associated with loss of consciousness. - Improved by nothing. - Not improved by rest Patient was trying to move on her rollator when she bent forward to put something in the trash can she lost balance and landed on the right side having immediate pain to the right hip previous history of left hip ORIF. Hit her head but did not lose consciousness does not take anticoagulation.. PAST MEDICAL HISTORY Diagnosis Date [place] of skin 10/09/2022 Arteriosclerosis of coronary artery 07/31/2022 Essential (primary) hypertension 07/31/2022 Fibromyalgia 10/09/2022 Gout 03/31/2022 Myocardial infarction (HCC) 10/09/2022 Nonrheumatic tricuspid valve regurgitation 07/31/2022 Parkinson's disease (HCC) 07/31/2022 History reviewed. No pertinent surgical history. No family history on file. Social History[1] ALLERGIES Allergen Reactions Percocet [Oxycodone* Rash, Itching Abilify [Aripiprazo* Contraindication-Medic al Surgical People with Parkinson's disease should not take this or other antipsychotics except Nuplazid, Seroquel, and Clozaril can be prescribed. Compazine [Prochlor* Contraindication-Medic al Surgical This should not be given to people with Parkinson's disease. If not otherwise contraindicated, Zofran should be given instead. Haldol [Haloperidol] Contraindication-Medic al Surgical People with Parkinson's disease should not take this or other antipsychotics except Nuplazid, Seroquel, and Clozaril can be prescribed. Phenergan [Prometha* Contraindication-Medic al Surgical This should not be given to people with Parkinson's disease. If not otherwise contraindicated, Zofran should be given instead. Reglan [Metoclopram* Contraindication-Medic al Surgical This should not be given to people with Parkinson's disease. If not otherwise contraindicated and for nausea, Zofran should be given instead. Zyprexa [Olanzapine] Contraindication-Medic al Surgical People with Parkinson's disease should not take this or other antipsychotics except Nuplazid, Seroquel, and Clozaril can be prescribed. Review of Systems Constitutional: Positive for fatigue. Negative for chills and fever. HENT: Negative for congestion. Respiratory: Negative for cough and shortness of breath. Cardiovascular: Negative for chest pain and palpitations. Gastrointestinal: Negative for nausea and vomiting. Skin: Positive for color change. Negative for wound. Chronic discoloration from colloidal silver use Allergic/Immunologic: Negative for environmental allergies, food allergies and immunocompromised state. Neurological: Positive for tremors. Negative for syncope and light-headedness. Psychiatric/Behavioral : Negative for confusion. The patient is not nervous/anxious. Physical Exam Vitals BP Pulse Temp Temp src Resp SpO2 Weight Height 01/19/25 1900 01/19/25 1851 01/19/25 1851 01/19/25 1851 01/19/25 1851 01/19/25 1851 101850 -- 142/68 72 36.1 ?C (96.9 ?F) Temporal Art 20 99 % 84 kg (185 lb 3.2 oz) Physical Exam Vitals and nursing note reviewed. Constitutional: General: She is not in acute distress. Appearance: Normal appearance. She is not ill-appearing, toxic-appearing or diaphoretic. HENT: Head: Normocephalic. Comments: Occipital scalp hematoma closed Eyes: Conjunctiva/sclera: Conjunctivae normal. Cardiovascular: Rate and Rhythm: Normal rate and regular rhythm. Pulmonary: Effort: Pulmonary effort is normal. No respiratory distress. Breath sounds: Normal breath sounds. Chest: Chest wall: No tenderness. Abdominal: Palpations: Abdomen is soft. Tenderness: There is no abdominal tenderness. Musculoskeletal: General: Tenderness present. Cervical back: No tenderness. Comments: Diffuse pain right hip without malrotation or shortening distal neurovascular intact. Tenderness to right hand over the 4th and 5th metacarpal without deformity. Skin: General: Skin is warm and dry. Findings: No rash. Neurological: General: No focal deficit present. Mental Status: She is alert and oriented to person, place, and time. Comments: GCS equals 15 Psychiatric: Mood and Affect: Mood normal. Behavior: Behavior normal. Thought Content: Thought content normal. Judgment: Judgment normal. Diagnostic Testing ED Labs Or (more content not included)... Normal [facility] XR CHEST 1V FRONTALon 2024 XR CHEST 1V FRONTAL * * *Final Report* * * DATE OF EXAM: Jan 19 2025 9:04PM LDX 5290 - XR CHEST 1V FRONTAL / PROCEDURE REASON: Cough * * * * Physician Interpretation * * * * EXAMINATION: CHEST RADIOGRAPH (SINGLE VIEW AP OR PA) CLINICAL HISTORY: Cough MQ: XC1_5 Comparison: None. RESULT: Lines, tubes, and devices: None. Lungs and pleura: No consolidation. No pleural effusion. No pneumothorax. Cardiomediastinal silhouette: Heart size within normal limits. Aortic arch atherosclerotic calcifications. Other: Degenerative changes in the shoulders and spine. IMPRESSION: No acute radiographic abnormality. Learning Developer: EMMY Transcribe Date/Time: Jan 19 2025 10:19P Dictated by : CYN MORGAN DO This examination was interpreted and the report reviewed and electronically signed by: CYN MORGAN DO on Jan 19 2025 10:19PM EST [id number] Normal [facility] XR HAND 3V PA/LAT/OBL RTon 1 XR HAND 3V PA/LAT/OBL RT * * *Final Repo rt* * * DATE OF EXAM: Jan 19 2025 9:04PM LDX 5346 - XR HAND 3V PA/LAT/OBL RT / PROCEDURE REASON: Trauma * * * * Physician Interpretation * * * * EXAMINATION: XR HAND 3V PA/LAT/OBL RT, XR HIP 3V PELV+ AP/LAT RT CLINICAL HISTORY: Trauma (accession [id number]), Hip pain, acute, fx suspected, initial exam (accession [id number]) Technique: XR HAND 3V PA/LAT/OBL RT, XR HIP 3V PELV+ AP/LAT RT -- RIGHT with 3 views on 3 images Comparison: None RESULT: Right hand: There is an acute nondisplaced fracture involving the proximal metadiaphysis of the ring finger metacarpal bone. Osseous structures are otherwise preserved. There is narrowing of multiple MCP, PIP and DIP joints with osteophytes indicating DJD. Moderate DJD of the thumb CMC joint is noted. Soft tissue structures are unremarkable. Pelvis/right hip: There is abnormal contour of the right femoral head neck junction concerning for impacted femoral neck fracture. Internal fixation left femur with intramedullary nail and dynamic hip screw is incompletely visualized. There is mature callus at the left femoral fracture site. Hip joint spaces are mildly narrowed indicating early DJD. There are degenerative changes of the lower lumbar spine. Soft tissue structures are unremarkable. IMPRESSION: 1. Acute nondisplaced fracture involving the proximal metadiaphysis of the ring finger metacarpal bone. 2. Findings concerning for impacted right femoral neck fracture. Learning Developer: PSCB Transcribe Date/Time: Jan 19 2025 10:16P Dictated by : JANNIE TOMLINSON MD This examination was interpreted and the report reviewed and electronically signed by: JANNIE TOMLINSON MD on Jan 19 2025 10:19PM EST [id number] Normal [facility] XR HIP 3V PELV+ AP/LAT RTon 01-19-2025 XR HIP 3V PELV+ AP/LAT RT * * *Final Report* * * DATE OF EXAM: Jan 19 2025 9:04PM LDX 5352 - XR HIP 3V PELV+ AP/LAT RT / PROCEDURE REASON: Hip pain, acute, fx suspected, initial exam * * * * Physician Interpretation * * * * EXAMINATION: XR HAND 3V PA/LAT/OBL RT, XR HIP 3V PELV+ AP/LAT RT CLINICAL HISTORY: Trauma (accession [id number]), Hip pain, acute, fx suspected, initial exam (accession [id number]) Technique: XR HAND 3V PA/LAT/OBL RT, XR HIP 3V PELV+ AP/LAT RT -- RIGHT with 3 views on 3 images Comparison: None RESULT: Right hand: There is an acute nondisplaced fracture involving the proximal metadiaphysis of the ring finger metacarpal bone. Osseous structures are otherwise preserved. There is narrowing of multiple MCP, PIP and DIP joints with osteophytes indicating DJD. Moderate DJD of the thumb CMC joint is noted. Soft tissue structures are unremarkable. Pelvis/right hip: There is abnormal contour of the right femoral head neck junction concerning for impacted femoral neck fracture. Internal fixation left femur with intramedullary nail and dynamic hip screw is incompletely visualized. There is mature callus at the left femoral fracture site. Hip joint spaces are mildly narrowed indicating early DJD. There are degenerative changes of the lower lumbar spine. Soft tissue structures are unremarkable. IMPRESSION: 1. Acute nondisplaced fracture involving the proximal metadiaphysis of the ring finger metacarpal bone. 2. Findings concerning for impacted right femoral neck fracture. Learning Developer: PSCB Transcribe Date/Time: Jan 19 2025 10:16P Dictated by : JANNIE TOMLINSON MD This examination was interpreted and the report reviewed and electronically signed by: JANNIE TOMLINSON MD on Jan 19 2025 10:19PM EST [id number] [facility] 12-29-2024 [facility] Telephone (NRMDN) MONISHA COHN ([id number]) 1940 F Date Time Provider Department 12/29/24 EM [facility] During your visit today, we recorded the following information about you: Isabel Joya MA 12/29/2024 10:07 AM Signed At appointment time, 10a pt was not checked in. Went to lobby/waiting room and hallway to call for pt. Pt was not in either location. Allergies As of Date: 12/29/2024 Noted Allergy Reaction PERCOCET (OXYCODONE-ACETAMINOPH EN)10/07/2022 2 - Rash 9 - Itching ABILIFY (ARIPIPRAZOLE) 06/28/2024 15 - Contraindication-Medic al [facility]* Comments: People with Parkinson's disease should not take this or other antipsychotics except Nuplazid, Seroquel, and Clozaril can be prescribed. COMPAZINE (PROCHLORPERAZINE) 06/28/2024 15 - Contraindication-Medic al [facility]* Comments: This should not be given to people with Parkinson's disease. If not otherwise contraindicated, Zofran should be given instead. HALDOL (HALOPERIDOL) 06/28/2024 15 - Contraindication-Medic al Emmanuel* Comments: People with Parkinson's disease should not take this or other antipsychotics except Nuplazid, Seroquel, and Clozaril can be prescribed. PHENERGAN (PROMETHAZINE) 06/28/2024 15 - Contraindication-Medic al [facility]* Comments: This should not be given to people with Parkinson's disease. If not otherwise contraindicated, Zofran should be given instead. REGLAN (METOCLOPRAMIDE) 06/28/2024 15 - Contraindication-Medic al Emmanuel* Comments: This should not be given to people with Parkinson's disease. If not otherwise contraindicated and for nausea, Zofran should be given instead. ZYPREXA (OLANZAPINE) 12/28/2024 15 - Contraindication-Medic al Emmanuel* Comments: People with Parkinson's disease should not take this or other antipsychotics except Nuplazid, Seroquel, and Clozaril can be prescribed. Date Reviewed: 07/29/2024 Reviewed by: Verna Mccord OCCA - Fully Assessed Reason for Visit: Appointment [186] Prescriptions as of 12/29/2024 - ammonium lactate (LAC-HYDRIN FIVE) 5 % lotn Apply to affected area as needed. - melatonin 3 mg tablet Take 3 mg by mouth. - GUAIFENESIN ORAL Take by mouth. - mag hydrox/aluminum hyd/simeth (MYLANTA DOUBLE-STRENGTH ORAL) Take by mouth. - celecoxib (CELEBREX) 200 mg capsule - alendronate (FOSAMAX) 70 mg tablet Take [...] by mouth two times a day. - polyethylene glycol 3350 17 gram/dose powder Take by mouth. - Acetaminophen 500 mg cap Take by mouth. - MYRBETRIQ 25 mg Tb24 1 tablet [...] once daily. Problem List As Of Date 12/29/2024 Noted Resolved Nonrheumatic tricuspid valve regurgitation [I36*07/31/2022 [...] coronary artery [Z95.5] 08/27/2023 Encounter Status:Closed by ISABEL JOYA on 12/29/24 Normal [facility] Laboratory - Chemistry and C hemistry - challengeOrdered By: Alexandria Dejesus on 12-28-2024 Bilirubin Ql (U) Negative [facility] Glucose Ql (U) Negative [facility] Ketones Ql (U) Negative [facility] pH (U) 6 [pH] [facility] Specific gravity (U) [Rel density] 1.015 [facility] Urobilinogen (U) [Mass/Vol] Negative [facility] Laboratory - Hematology and Cell countsOrdered By: Alexandria Dejesus on 12-28-2024 Hemoglobin Ql (U) Negative [facility] Laboratory - UrinalysisOrder ed By: Alexandria Dejesus on 12-28-2024 Nitrite Ql (U) Negative [facility] Protein Ql (U) Trace [facility] MR/Beau 12-28-2024 /BOUBACAR [facility] [address], [address] [place] [address] OFFICE VISIT Date of Service: 12/28/24 MR#: [id number] Acct: [id number] Name: MONISHA COHN Rep #: [id number] : 1940 Provider: Dr. 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 by: ursing home aide Is patient in pain?: Yes (bone spur ) Pain scale (1-10): 6 Allergies oxycodone (From Percocet) Allergy (Severe, Verified 12/28/24 13:10) Hives Medications ???Medication ???Instructions ???Recorded ???Confirmed ???Type aspirin 81 mg tablet,delayed 81 mg PO DAILY 02/25/22 12/28/24 H istory release (Adult Aspirin Regimen) acetaminophen 325 mg capsule 650 mg PO Q6H PRN fever or pain 12/28/24 History atorvastatin 40 mg tablet 40 mg PO QHS 05/01/23 12/28/24 His tory polyethylene glycol 3350 17 17 g PO DAILY 05/01/23 12/28/24 Hi story gram/dose oral powder (ClearLax) psyllium husk 3.4 gram/5.4 gram 1 tbsp PO DAILY 05/01/23 12/28/24 History oral powder (Stacie-Mucil) senna-docusate sodium capsule 1 cap PO BID 05/01/23 12/28/24 His tory cholecalciferol (vitamin D3) 25 25 mcg PO DAILY 09/16/23 12/28/24 History mcg (1,000 unit) capsule alendronate 70 mg tablet 70 mg PO QWEEK 09/27/24 12/28/24 H istory carbidopa 25 mg-levodopa 100 mg tab PO 09/27/24 12/28/24 History tablet celecoxib 200 mg capsule 200 mg PO QDAY 09/27/24 12/28/24 H istory duloxetine 20 mg capsule,delayed 20 mg PO QDAY 09/27/24 12/28/24 Hi story release mirabegron 25 mg tablet,extended 25 mg PO QDAY 09/27/24 12/28/24 Hi story release 24 hr (Myrbetriq) tramadol 50 mg tablet 50 mg PO TID PRN 09/27/24 09/27/24 History ascorbate calcium (vitamin C) 500 500 mg PO QDAY 12/28/24 12/28/24 History mg tablet guaifenesin 100 mg/5 mL oral liquid 200 mg PO Q4H PRN 12/28/2412/12 History mecobalamin (vitamin B12) 500 mcg mcg PO 12/28/24 12/28/24 History chewable tablet melatonin 3 mg capsule 3 mg PO HS PRN 12/28/24 12/28/24 H istory simethicone 125 mg chewable tablet 125 mg PO QD-BID PRN 12/28/24 History (Mylanta Gas) Have you fallen in the past year?: No Nurse's Note: urgency and frequecy is getting worse PFSH Medical History (Updated 12/28/24 @ 13:[address] Alexandria Dejesus MD) Nocturia Urge incontinence Overactive bladder Former tobacco use Depression Hypertension Fall CHI (closed head injury) Presence of stent in coronary artery ( 12/22/21) Atherosclerotic heart disease of [place] coronary artery without angina pectoris ST elevation myocardial infarction (STEMI) of inferior wall ( 12/22/21) Essential (primary) hypertension Parkinsons disease Urgency of urination Gout Cardiogenic shock Non-rheumatic mitral regurgitation Non-rheumatic tricuspid valve insufficiency Pulmonary hypertension Emphysema with chronic bronchitis Fibromyalgia Hyperlipidemia CAD (coronary artery disease) Bladder spasms Edema, lower extremity Myocardial infarction Surgical History S/P appendectomy History of hysterectomy History of ankle surgery Presence of coronary angioplasty implant and graft Family History Father Heart disease Social History household members: friend(s) Smoking Status: Former smoker pack-years: 30 Tobacco: How many years used: 30 how long ago did patient quit smoking: Quit 20+ years prior. alcohol intake: current alcohol intake frequency: holidays/special occasions only substance use type: does not use caffeine: Yes Type: coffee Number of servings: 2 HPI HPI Urology Chief Complaint: 12 month myrbetriq follow up Details: MONISHA COHN, is a 84 F. She is here for medication follow up. She has been taking Myrbetriq 25mg daily. She is not having side effects from the medication. She is recently having more urgency, frequency and nocturia. She is using pull ups, 3 during the night. She does better during the day. She would like to adjust this medication. She has not had any urinary tract infections since the last visit. She has not had any blood in the urine since the last visit. She has no new urologic concerns to discuss today. ROS Const Constitutional: No chills, fatigue, fever(s), headache(s), night sweats, weakness, weight change, abnormal sleep pattern or change in appetite Eyes Eyes: No change in vision ENT ENT: No headache(s) or dry ibis (more content not included)... Normal [facility] No Panel InformationOrdered By: Alexandria Dejesus on 12-28-2024 Urine Leukocytes Negatve [facility] Urine Non-Hemolyzed Blood Negative [facility] Cardiovascular stress test r eportOrdered By: Danielle Vernon on 11-07-2024 Study report [facility] [address] [place] [address] MR#: [id number] Acct: [id number] Name: MONISHA COHN Rep #: [id number] : 1940 84 From: Danielle Vernon MD Primary Care: Tressa Rosales Status: REG CLI Referring Dr: Danielle Vernon MD Sex: F C Stress Test Report Date: 11/03/2024 Procedure: Pharmacologic stress nuclear imaging study Indications: Coronary artery disease Consent: Per the patient Procedure: The patient underwent pharmacologic (Regadenoson 0.4mg ) evaluation with a peak heart rate of 96 beats per minute (70%predicted maximal heart rate) and a peak blood pressure of 144/78 mmHg. The baseline ECG demonstrated sinus rhythm. The peak pharmacologic ECG showed no ischemic changes. There were no cardiac dysrhythmias pretest, during pharmacologic infusion, or recovery. There was no complaint of chest discomfort during pharmacologic infusion or recovery. The patient was injected with 11.7 millicuries of technetium 99m Cardiolite and subsequently rest SPECT Cardiolite nuclear imaging was obtained in the horizontal long, vertical long, and short axis views. The patient underwent pharmacologic (Regadenoson) evaluation. The patient was injected with 33.5 millicuries of technetium 99m Cardiolite and subsequently stress SPECT Cardiolite nuclear imaging was obtained in the horizontal long, vertical long, and short axis views. No gated images could be obtained. The examination was stopped secondary to completion of protocol. Rest and stress SPECT Cardiolite nuclear imaging status post realignment, normalization, and attenuation correction demonstrate no fixed or reversible perfusion defects. Impression: 1. Pharmacologic (Regadenoson) evaluation 2. Peak pharmacologic ECG with no ischemic changes. 3. There were no cardiac dysrhythmias pretest, during pharmacologic infusion, or recovery. 5. Rest and stress SPECT Cardiolite nuclear imaging demonstrate relative uniform tracer uptake and myocardial perfusion appearing within normal limits. 6. No gated images could be obtained. This note was generated with Twibingo dictation software. It may contain incorrectwords, spelling, and punctuation that were not noted in checking the note beforesigning. 11/07/241427 Date _ Danielle Vernon MD CC: Dr. Danielle Vernon MD; Tressa Bobby ~ Date Dictated: 11/07/241426 Date Transcribed: 11/07/241426 Learning Developer: EVANGELINA Wiseman [facility] Work Phone: Echocardiogram study reportO rdered By: Daneille Vernon on 11-07-2024 Study report [facility] [address] [place] [address] Echo Complete 11/03/24928 MR#: [id number] Acct: [id number] Name: MONISHA COHN Rep #:[id number] : 1940 84 From: Danielle Vernon MD Attending Dr: Dr. Danielle Vernon MD Status: REG CLI Ordering Dr: Danielle Vernon MD Date: Location: [facility] Sex: F C Admitted: Reason For Study Reason For Study: CAD/ASHD Procedure This was a 2D Doppler, Color Flow transthoracic echocardiogram. Exam performed in department. Left Ventricle Normal size and thickness. The LV ejection fraction is 65 %. Diastolic function is indeterminate. Right Ventricle Normal right ventricle. Atria There is mild biatrial dilatation. Mitral Valve Trivial mitral valve insufficiency. Tricuspid Valve Moderately severe (3+) tricuspid valve insufficiency. Right ventricular systolicpressure estimated to be 58 mmHg. Aortic Valve Trisinus/trileaflet aortic valve. Pulmonic Valve The pulmonic valve is not well visualized. Great Vessels Normal sized aortic root. Pericardium/Pleural No pericardial effusion. MMode/2D Measurements & Calculations LVIDd: 4.3 cm IVSd: 0.95 cm LAV(MOD-bp): 56.3 ml LVIDs: 2.4 cm LVPWd: 0.90 cm LAV(MOD-bp) Indexed: 32.3 ml/m2 RVDd: 3.6 cm FS: 42.9 % LAV(MOD-sp2): 57.2 ml LAV(MOD-sp4): 46.9 ml SV(MOD-sp4): 42.1 ml SV(sp4-el): 44.6 ml LVAd ap4: 22.7 cm2 LVLd ap4: 6.8 cm SI(MOD-sp4): 24.2 ml/m2 EDV(MOD-sp4): 63.0 ml EDV(sp4-el): 64.0 ml LVAs ap4: 11.4 cm2 LVLs ap4: 5.7 cm ESV(MOD-sp4): 20.9 ml ESV(sp4-el): 19.4 ml EF(MOD-sp4): 66.9 % EF(sp4-el): 69.7 % LA A4 area: 17.7 cm2 LA dimension(2D): 4.2 cm RA A4 area: 13.9 cm2 TAPSE: 2.3 cm Time Measurements MV dec time: 0.18 sec Doppler Measurements & Calculations MV E max calin: 96.6 cm/sec Lat Peak E' Calin: 7.9 cm/sec Med Peak E' Calin: 11.4 cm/sec MV A max calin: 99.7 cm/sec E/E' lat: 12.3 E/E' med: 8.5 MV E/A: 0.97 MV V2 max: 120.4 cm/sec MV P1/2t max calin: 121.7 cm/sec Ao V2 max: 169.4 cm/sec MV max P.8 mmHg MV P1/2t: 67.2 msec Ao max P.5 mmHg MV V2 mean: 77.9 cm/sec Ao V2 mean: 117.2 cm/sec MV mean P.8 mmHg MV dec slope: 530.5 cm/sec2 Ao mean P.3 mmHg MV V2 VTI: 29.6 cm MVA(P1/2t): 3.3 cm2 Ao V2 VTI: 39.3 cm LV V1 max: 117.1 cm/sec PA V2 max: 96.2 cm/sec TR max calin: 362.9 cm/sec LV V1 max P.5 mmHg TR max P.7 mmHg ECHO/Echo Complete Interpretation Summary The LV ejection fraction is 65 %. Diastolic function is indeterminate. There is mild biatrial dilatation. Moderately severe (3+) tricuspid valve insufficiency. Right ventricular systolic pressure estimated to be 58 mmHg. Moderate pulmonary hypertension. Ordering Physician: Danielle Vernon Referring Physician: Danielle Vernon Performed By: Irineo Walker RCS 11/07/24 1248 Date _ Danielle Vernon MD CC: Dr. Danielle Vernon MD; Tressa Rosales ~ Date Dictated: 11/03/24928 Date Transcribed: 07/28/25 1248 Learning Developer: Signed [facility] Work Phone: Stress Reporton 11-07-2024 Stress Report [facility] [place] [address] [address] [place] [address] MR#: [id number] Acct: [id number] Name: MONISHA COHN Rep #: [id number] : 1940 84 From: Danielle Vernon MD Primary Care: Tressa Rosales Status: R EG CLI Referring Dr: Danielle Vernon MD Sex: F C Stress Test Report Date: 11/03/2024 Procedure: Pharmacologic stress nuclear imaging study Indications: Coronary artery disease Consent: Per the patient Procedure: The patient underwent pharmacologic (Regadenoson 0.4mg ) evaluation with a peak heart rate of 96 beats per minute (70%predicted maximal heart rate) and a peak blood pressure of 144/78 mmHg. The baseline ECG demonstrated sinus rhythm. The peak pharmacologic ECG showed no ischemic changes. There were no cardiac dysrhythmias pretest, during pharmacologic infusion, or recovery. There was no complaint of chest discomfort during pharmacologic infusion or recovery. The patient was injected with 11.7 millicuries of technetium 99m Cardiolite and subsequently rest SPECT Cardiolite nuclear imaging was obtained in the horizontal long, vertical long, and short axis views. The patient underwent pharmacologic (Regadenoson) evaluation. The patient was injected with 33.5 millicuries of technetium 99m Cardiolite and subsequently stress SPECT Cardiolite nuclear imaging was obtained in the horizontal long, vertical long, and short axis views. No gated images could be obtained. The examination was stopped secondary to completion of protocol. Rest and stress SPECT Cardiolite nuclear imaging status post realignment, normalization, and attenuation correction demonstrate no fixed or reversible perfusion defects. Impression: 1. Pharmacologic (Regadenoson) evaluation 2. Peak pharmacologic ECG with no ischemic changes. 3. There were no cardiac dysrhythmias pretest, during pharmacologic infusion, or recovery. 5. Rest and stress SPECT Cardiolite nuclear imaging demonstrate relative uniform tracer uptake and myocardial perfusion appearing within normal limits. 6. No gated images could be obtained. This note was generated with Switchboardation software. It may contain incorrect words, spelling, and punctuation that were not noted in checking the note before signing. 11/07/241427 Date Danielle Vernon MD CC: Dr. Danielle Vernon MD; Tressa Rosales Date Dictated: 11/07/241426 Date Transcribed: 11/07/241426 Learning Developer: EVANGELINA Signed Normal [facility] Echo Completeon 11-03-2024 Echo Complete [facility] [address] [place] [address] Echo Complete 11/03/24 0929 MR#: [id number] Acct: [id number] Name: MONISHA COHN Rep #: [id number] : 1940 84 From: Danielle Vernon MD Attending Dr: Dr. Danielle Vernon MD Status: REG CLI Ordering Dr: Danielle Vernon MD Date: 11/03/24 Location: [facility] Sex: F C Admitted: Reason For Study Reason For Study: CAD/ASHD Procedure This was a 2D Doppler, Color Flow transthoracic echocardiogram. Exam performed in department. Left Ventricle Normal size and thickness. The LV ejection fraction is 65 %. Diastolic function is indeterminate. Right Ventricle Normal right ventricle. Atria There is mild biatrial dilatation. Mitral Valve Trivial mitral valve insufficiency. Tricuspid Valve Moderately severe (3+) tricuspid valve insufficiency. Right ventricular systolic pressure estimated to be 58 mmHg. Aortic Valve Trisinus/trileaflet aortic valve. Pulmonic Valve The pulmonic valve is not well visualized. Great Vessels Normal sized aortic root. Pericardium/Pleural No pericardial effusion. MMode/2D Measurements Calculations LVIDd: 4.3 cm IVSd: 0.95 cm LAV(MOD-bp): 56.3 ml LVIDs: 2.4 cm LVPWd: 0.90 cm LAV(MOD-bp) Indexed: 32.3 ml/m2 RVDd: 3.6 cm FS: 42.9 % LAV(MOD-sp2): 57.2 ml LAV(MOD-sp4): 46.9 ml SV(MOD-sp4): 42.1 ml SV(sp4-el): 44.6 ml LVAd ap4: 22.7 cm2 LVLd ap4: 6.8 cm SI(MOD-sp4): 24.2 ml/m2 EDV(MOD-sp4): 63.0 ml EDV(sp4-el): 64.0 ml LVAs ap4: 11.4 cm2 LVLs ap4: 5.7 cm ESV(MOD-sp4): 20.9 ml ESV(sp4-el): 19.4 ml EF(MOD-sp4): 66.9 % EF(sp4-el): 69.7 % LA A4 area: 17.7 cm2 LA dimension(2D): 4.2 cm RA A4 area: 13.9 cm2 TAPSE: 2.3 cm Time Measurements MV dec time: 0.18 sec Doppler Measurements Calculations MV E max calin: 96.6 cm/sec Lat Peak E' Calin: 7.9 cm/sec Med Peak E' Calin: 11.4 cm/sec MV A max calin: 99.7 cm/sec E/E' lat: 12.3 E/E' med: 8.5 MV E/A: 0.97 MV V2 max: 120.4 cm/sec MV P1/2t max calin: 121.7 cm/sec Ao V2 max: 169.4 cm/sec MV max P.8 mmHg MV P1/2t: 67.2 msec Ao max P.5 mmHg MV V2 mean: 77.9 cm/sec Ao V2 mean: 117.2 cm/sec MV mean P.8 mmHg MV dec slope: 530.5 cm/sec2 Ao mean P.3 mmHg MV V2 VTI: 29.6 cm MVA(P1/2t): 3.3 cm2 Ao V2 VTI: 39.3 cm LV V1 max: 117.1 cm/sec PA V2 max: 96.2 cm/sec TR max calin: 362.9 cm/sec LV V1 max P.5 mmHg TR max P.7 mmHg ECHO/Echo Complete Interpretation Summary The LV ejection fraction is 65 %. Diastolic function is indeterminate. There is mild biatrial dilatation. Moderately severe (3+) tricuspid valve insufficiency. Right ventricular systolic pressure estimated to be 58 mmHg. Moderate pulmonary hypertension. Ordering Physician: Danielle Vernon Referring Physician: Danielle Vernon Performed By: Irineo Walker RCS 11/07/24 1248 Date Danielle Vernon MD CC: Dr. Danielle Vernon MD; Tressa Bobby Date Dictated: 11/03/24928 Date Transcribed: 11/07/241247 Learning Developer: Signed Normal [facility] Cardiology Visit Reporton Cardiology Visit Report [facility] [address] [place] [address] OFFICE VISIT Date of Service: 09/27/24 MR#: [id number] Acct: [id number] Name: MONISHA CHON Rep #: [id number] : 1940 Provider: Dr. 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 Normal [facility] CNOVon 07-29-2024 CNOV Office Visit (NMMBHT ) MONISHA COHN ([id number]) 1940 F Date Time Provider Department 07/29/24 3:00 PM ARMEN MADISON During your visit today, we recorded the following information about you: Pulse Blood pressure 68/minute 110/65 Armen Madison MD 07/29/2024 3:33 PM Signed [facility] New Patient Visit Note Consultation [...] further r (more content not included)... Normal [facility] Folate SerPl-mCncon 07-30-19 25 Folate [Mass/Vol] 6.2 ng/mL Normal >4.7 [facility] Comment on above: Order Comment: Liza granados Type: BLOOD SPECIMEN Ordering Facility: [facility] Address: [address] [place] [address] Performed By: #### 2 284-8, 2132-9 #### [facility] CLIA [id number] [address] [place] [address] [place] HbA1c (Bld)on 07-29-2024 Average glucose Estimated from glycated hemoglobin (Bld) [Mass/Vol] 100 mg/dL Normal [facility] Comment on above: Order Comment: Liza granados Type: BLOOD SPECIMEN Ordering Facility: [facility] Address: [address] [place] [address] Result Comment: eAG: (Estimated average glucose) is a calculated value from HgbA1c and is pharmacy sales representative of the average blood glucose level in the last 2-3 month period. Performed By: #### 5 5454-3 #### [facility] CLIA [id number] [address] [place] [address] [place] HbA1c (Bld) [Mass fraction] 5.1 % Normal 4.3-5.6 [facility] Comment on above: Order Comment: Liza granados Type: BLOOD SPECIMEN Ordering Facility: [facility] Address: [address] [place] [address] Result Comment: Amer [place] Diabetes Association guidelines indicate that patients with HgbA1c in the range 5.7-6.4% are at increased risk for development of diabetes, and intervention by lifestyle modification may be beneficial. HgbA1c greater or equal to 6.5% is considered diagnostic of diabetes. Performed By: #### 5 5454-3 #### [facility] CLIA [id number] [address] [place] [address] IMMUNOFIXATION SCREEN, SERUM on 07-29-2024 INTERPRETATION (MPA) Atypical restricted bands are present in the IgG and lambda regions. Consistent with IgG lambda monoclonal gammopathy. Normal [facility] Comment on above: Order Comment: Liza granados Type: BLOOD SPECIMEN Ordering Facility: [facility] Address: [address] [place] [address] Performed By: #### I FESC #### [facility] CLIA [id number] [address] [place] [address] STATES OF [facility] MPA RESULT M protein is present. Abnormal No M p rotein is identified. [facility] Comment on above: Order Comment: Liza granados Type: BLOOD SPECIMEN Ordering Facility: [facility] Address: [address] [place] [address] Performed By: #### I FESC #### [facility] CLIA [id number] [address] [place] [address] OF [facility] STAFF REVIEW (MPA) Reviewed by Beatriz Estes M.D., Ph.D Normal [facility] Comment on above: Order Comment: Liza granados Type: BLOOD SPECIMEN Ordering Facility: [facility] Address: [address] [place] [address] Performed By: #### I FESC #### [facility] CLIA [id number] [address] [place], [place] [id number] [place] KAPPA/ZIMMERMAN,FREE,SERon 2024 Immunoglobulin light chains.kappa.free (S) [Mass/Vol] 20.0 mg/L High 3.3-19.4 [facility] Comment on above: Order Comment: Speci roberta Type: BLOOD SPECIMEN Ordering Facility: [facility] Address: [address] [place] [address] Result Comment: Rare ly, increased serum free light chains levels may not be detected or accurately quantified due to prozone phenomenon or in high viscosity samples using this immunoturbidimetric assay. Correlation with other laboratory results and clinical findings is recommended. The Charlo Free Light Chain was performed using the Binding Site Optilite immunoturbidimetric method. Result obtained with different assay methods or kits cannot be used interchangeably. Performed By: #### K LFRS #### [facility] CLIA [id number] [address] [place] [address] [place] Immunoglobulin light chains.kappa/Immunoglobu lacey light chains.lambda (S) [Mass ratio] 0.16 Low 0.26-1.65 [facility] Comment on above: Order Comment: Specmiguel granados Type: BLOOD SPECIMEN Ordering Facility: [facility] Address: [address] [place] [address] Performed By: #### K LFRS #### [facility] CLIA [id number] [address] [place] [address] [place] Immunoglobulin light chains.lambda.free [Mass/Vol] 121.8 mg/L High 5.7-26.3 [facility] Comment on above: Order Comment: Liza granados Type: BLOOD SPECIMEN Ordering Facility: [facility] Address: [address] [place] [address] Result Comment: Rare ly, increased serum free [...] used interchangeably. Performed By: #### K LFRS #### [facility] CLIA [id number] [address] [place] [address] [place] Methylmalonate SerPl-sCncon 07-29-2024 Methylmalonate [Moles/Vol] 0.18 umol/L Normal <=0.40 [facility] Comment on above: Order Comment: Liza granados Type: BLOOD SPECIMEN Ordering Facility: [facility] Address: [address] [place] [address] Result Comment: This test was developed, and its performance characteristics determined by the [facility] Department of Pathology and Laboratory Medicine. It has not been cleared or approved by the FDA. The [facility] Department of Pathology and Laboratory Medicine is regulated under CLIA as qualified to perform high-complexity testing. This test is used for clinical purposes. It should not be regarded as investigational or for research. Performed By: #### 1 3964-2 #### [facility] CLIA [id number] [address] [place] [address] [place] VITAMIN B1 (THIAMINE), WHOLE BLOODon 07-29-2024 Thiamine (Bld) [Moles/Vol] 118.7 nmol/L Normal 84.3-213.3 [facility] Comment on above: Order Comment: Liza granados Type: BLOOD SPECIMEN Ordering Facility: [facility] Address: [address] [place] [address] Result Comment: This assay measures the concentration of thiamine diphosphate (TDP), the primary active form of vitamin B1. Approximately 90 percent of vitamin B1 present in whole blood is TDP. Thiamine and thiamine monophosphate, which comprise the remaining 10 percent, are not measured. This test was developed, and its performance characteristics determined by the [facility] Department of Pathology and Laboratory Medicine. It has not been cleared or approved by the FDA. The [facility] Department of Pathology and Laboratory Medicine is regulated under CLIA as qualified to perform high-complexity testing. This test is used for clinical purposes. It should not be regarded as investigational or for research. Performed By: #### B 1WB #### [facility] CLIA [id number] [address] [place] [address] [place] Vit B12 SerPl-mCncon 025 Cobalamin (Vitamin B12) [Mass/Vol] 876 pg/mL Normal 232-1245 [facility] Comment on above: Order Comment: Speci men Type: BLOOD SPECIMEN Ordering Facility: [facility] Address: [address] [place] [address] Performed By: #### 2 284-8, 2132-9 #### [facility] CLIA [id number] [address] [place] [address] CNOVon 06-28-2024 CNOV Office Visit (NRMDN) MONISHA COHN ([id number]) 1940 F Date Time Provider Department 06/28/24 8:00 AM EM FLYNN NRHANH During your visit today, we recorded the following information about you: Pulse Blood pressure Weight Height 76/minute 112/74 70.5 kg 1.575 m Em Flynn APRN.CNP 06/28/2024 11:22 PM Signed [facility] - FOLLOW UP EVALUATION The patient consented to the use of ambient Miyowa software for draft documentation of the visit consistent with [facility]?s Notice of Privacy Practices. Alexandra Arreguin APRN.RESIDUE FURNACE OPERATOR [address] [address] Dear Alexandra Arreguin APRN.RESIDUE FURNACE OPERATOR: I had the pleasure of seeing Ms. [...] directives (living will and durable power of trademark attorney for healthcare): By Email: Send your document(s) to [email or web address] as an attachment in either PDF, TIFF, or JPEG format. By Mail: [facility] Information Management, [employer] Advance Directive Processing [email or web address] [place], [place] [address] By In person at any [facility] location Please note: You can use the address or fax number regardless of which [facility] you utilize, and we will make [...] she find (more content not included)... 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 Reading Location: [place] [address] CC: Didi Lujan; Tressa Rosales Learning Developer: Signed Normal [facility] Cardiology Visit Reporton Cardiology Visit Report [facility] Heart [facility] [address] [place] [address] OFFICE VISIT Date of Service: 03/16/24 MR#: [id number] Acct: [id number] Name: MONISHA COHN Rep #: [id number] : 1940 Provider: Dr. 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 Accompanied by: Is patient in [...] PO DAILY 05/01/23 03/16/24 History oral powder (Stacie-Mucil) senna-docusate sodium capsule 1 cap PO BID 05/01/23 03/16/24 History cholecalciferol (vitamin D3) 25 25 mcg PO DAILY 09/16/23 03/16/24 History mcg (1,000 unit) capsule amlodipine 10 mg tablet 10 mg PO QDAY 03/16/24 03/16/24 History denosumab 60 mg/mL subcutaneous 60 mg subcut [id number] 03/16/24 03/16/24 History syringe hydroxyzine HCl 25 [...] in the past year?: Yes (Hip Fx) [facility] Medical History Atherosclerotic heart disease of [place] coronary artery without angina pectoris Bladder spasms [...] distress and (more content not included)... Normal [facility] Large Joint Arthro/Inj: L sh ould jointon 10-02-2023 Yury Jasso MD 10/02/2023 10:01 AM Large Joint [...] the patient voiced understanding of these instructions. [facility] XR Shoulder - left 3 Viewson 10-01-2023 IMPRESSION: Degenerative changes with chronic rotator cuff tear. Learning Developer: [facility] H[facility]PITALLashay Transcribe Date/Time: Oct 01 2023 6:45A Dictated by : SHENA OAKLEY MD This examination was interpreted and the report reviewed and electronically signed by: SHENA OAKLEY MD on Oct 01 2023 6:46AM EST [facility] * * *Final Report* * * [...] rotator cuff tear. No fracture or dislocation. [facility] Provider, [facility] - 10/01/2023 * * *Final Report* * [...] Degenerative changes with chronic rotator cuff tear. Learning Developer: EMMY Transcribe Date/Time: Oct 01 2023 6:45A Dictated by : SHENA OAKLEY MD This examination was interpreted and the report reviewed and electronically signed by: SHENA OAKLEY MD on Oct 01 2023 6:46AM EST [facility] XR Shoulder - left 3 ViewsOr dered By: Ccf Provider on 10-01-2023 [facility] XR SHLDR >/=3V AP/KIERA AP/OTH R [...] Degenerative changes with chronic rotator cuff tear. Learning Developer: PSCB Transcribe Date/Time: Oct 01 2023 6:45A Dictated by : SHENA OAKLEY MD This examination was interpreted and the report reviewed and electronically signed by: SHENA OAKLEY MD on Oct 01 2023 6:46AM EST [id number] [facility] XR Shoulder - left 3 Viewson 09-29-2023 [facility] W JOHN PAUL LTon 024 [facility] DIAG W JOHN PAUL LT * * *Final Report* * * DATE OF EXAM: Sep 23 2023 9:39AM JOSÉ LUIS 0628 - [facility] DIAG W JOHN PAUL LT / PROCEDURE REASON: R92.2 INCONCLUSIVE MAMMOGRAM * * * * Physician Interpretation * * * * #[id number] - [facility] DIAG W JOHN PAUL LT #[id number] - [facility] BREAST LTD LT UNILATERAL LEFT DIGITAL DIAGNOSTIC [...] Comparison is made to exam dated: 08/13/2023 [facility]. The left breast is almost entirely fatty. [...] Comparison is made to exam dated: 08/13/2023 [facility]. Ultrasound of was performed. Imaging was done [...] schedule is recommended. Ajay Bullock M.D. FACR, FSBI ch/penrad:09/23/2023 10:55:35 Multiple national specialty organizations have released breast cancer screening guidelines for women at average risk for developing breast cancer - guidelines that are based on both evidence and opinion, yet differ on when to start and how often to screen for breast cancer. With representation from Breast Imaging, Internal Medicine, Women's Health, Family Medicine, and Medical/Surgical Oncology, the [facility] has carefully reviewed the data and reached [...] their providers when to stop screening mammograms. Medical Social Worker(s): Rafia Wagner RT(R)(M), [facility]; RT Nicole(R), [facility] OVERALL STUDY BIRADS: 2 Benign finding Learning Developer: Gi Transcribe Date/Time: Sep 23 2023 9:21A Dictated by : AJAY BULLOCK MD This examination was interpreted and the report reviewed and electronically signed by: AJAY BULLOCK MD on Sep 23 2023 10:55AM EST [id number] Normal [facility] US BREAST LTD LTon 09-22 [facility] [employer] BREAST LTD LT * * *Final Report* * * DATE OF EXAM: Sep 23 2023 10:32AM JASPREET 0593 - [facility] [employer] BREAST LTD LT / PROCEDURE REASON: Abnormal mammogram * * * * Physician Interpretation * * * * #[id number] - [facility] DIAG W JOHN PAUL LT #[id number] - [facility] [employer] BREAST LTD LT UNILATERAL LEFT DIGITAL DIAGNOSTIC [...] made to exam dated: 08/13/2023 mammogram - [facility]. The left breast is almost entirely [...] made to exam dated: 08/13/2023 mammogram - [facility]. Ultrasound of was performed. Imaging was [...] mammogram screening schedule is recommended. Ajay BENITEZ, [facility]/gi:09/23/2023 10:55:35 Multiple national specialty organizations have released breast cancer screening guidelines for women at average risk for developing breast cancer - guidelines that are based on both evidence and opinion, yet differ on when to start and how often to screen for breast cancer. With representation from Breast Imaging, Internal Medicine, Women's Health, Family Medicine, and Medical/Surgical Oncology, the [facility] has carefully reviewed the data and reached [...] their providers when to stop screening mammograms. Medical Social Worker(s): Rafia Wagner RT(R)(M), [facility]; RT Nicole(R), [facility] OVERALL STUDY BIRADS: 2 Benign finding Learning Developer: Gi Transcribe Date/Time: Sep 23 2023 9:21A Dictated by : AJAY BULLOCK MD This examination was interpreted and the report reviewed and electronically signed by: AJAY BULLOCK MD on Sep 23 2023 10:55AM EST [id number] Normal [facility] US Breast - left limitedon 0 09-23-2023 * * *Final Report* * * DATE OF EXAM: Sep 23 2023 10:32AM JASPREET 0593 - [facility] [employer] BREAST LTD LT / PROCEDURE REASON: Abnormal mammogram * * * * Physician Interpretation * * * * #[id number] - CRIST[facility] DIAG W JOHN PAUL LT #[id number] - [facility] US BREAST LTD LT UNILATERAL LEFT [...] made to exam dated: 08/13/2023 mammogram - [facility]. The left breast is almost entirely [...] other findings are seen in the breast. [facility] Provider, Marko [facility] [place] - 09/23/2023 * * *Final Report* * * DATE OF EXAM: Sep 23 2023 10:32AM JASPREET 0593 - [facility] [employer] LTD LT / PROCEDURE REASON: Abnormal mammogram * * * * Physician Interpretation * * * * #[id number] - [facility] DIAG W JOHN PAUL LT #[id number] - [facility] [employer] BREAST LTD LT UNILATERAL LEFT DIGITAL DIAGNOSTIC [...] Comparison is made to exam dated: 08/13/2023 [facility]. The left breast is almost entirely fatty. [...] Comparison is made to exam dated: 08/13/2023 [facility]. Ultrasound of was performed. Imaging was done [...] schedule is recommended. Ajay Bullock M.D. FACR, [facility]/gi:09/23/2023 10:55:35 Multiple national specialty organizations have released breast cancer screening guidelines for women at average risk for developing breast cancer - guidelines that are based on both evidence and opinion, yet differ on when to start and how often to screen for breast cancer. With representation from Breast Imaging, Internal Medicine, Women's Health, Family Medicine, and Medical/Surgical Oncology, the [facility] has carefully reviewed the data and reached [...] their providers when to stop screening mammograms. Medical Social Worker(s): RT Yumiko(R)(M), [facility]; RT Nicole(R), [facility] OVERALL STUDY BIRADS: 2 Benign finding Learning Developer: Gi Transcribe Date/Time: Sep 23 2023 9:21A Dictated by : AJAY BULLOCK MD This examination was interpreted and the report reviewed and electronically signed by: AJAY BULLOCK MD on Sep 23 2023 10:55AM EST [facility] Radiology Study observation (narrative) [facility] US Breast - left limitedOrde red By: Ccf Provider on 09-23-2023 [facility] BD DXA - AXIAL SKELETONon BD DXA - AXIAL SKELETON * * *Final Repor t* * * DATE OF EXAM: Aug 13 2023 2:25PM SARAH 0804 - BD DXA - AXIAL SKELETON B / PROCEDURE REASON: Z78.0 ASYMPTOMATIC MENOPAUSAL STATE * * * * Physician Interpretation * * * * EXAMINATION: DXA BONE DENSITOMETRY BD DXA - AXIAL SKELETON PATIENT DEMOGRAPHICS: Age: 83 years, Gender: Female SCANNER INFORMATION: DXA Model: [employer] [id number] Date Scanned: 08/13/2023 2:25 PM CLINICAL HISTORY: [...] had a previous bone density in the [facility] or the previous bone density was performed on a different DXA machine (new, updated model or different location) within the [facility]. VERTEBRAL FRACTURE ASSESSMENT Not performed. [...] FOR MORE INFORMATION ABOUT DIAGNOSIS AND TREATMENT: [facility] for Osteoporosis and Metabolic Bone Disease:? www.ccf.org/arthritis/ osteo National Osteoporosis Foundation:? www.nof.org International Society of Clinical Densitometry www.iscd.org Learning Developer: EMMY Transcribe Date/Time: Aug 14 2023 8:30A Dictated by : SHENA OAKLEY MD This examination was interpreted and the report reviewed and electronically signed by: SHENA OAKLEY MD on Aug 14 2023 8:31AM EST [id number] -3.1 Normal [facility] SCREENINGon 08-13-2023 [facility] SCREENING * * *Final Report* * * DATE OF EXAM: Aug 13 2023 2:10PM JOSÉ LUIS 0581 - [facility] SCREENING / PROCEDURE REASON: Z12.31 SCREENING MAMMOGRAM * * * * Physician Interpretation * * * * #[id number] - [facility] SCREENING BILATERAL DIGITAL SCREENING MAMMOGRAM WITH [...] views with possible ultrasound are recommended. Jayleen spears/gi:08/14/2023 11:00:52 Medical Social Worker(s): RT Maribel(Carla)(M), [facility] letter sent: Additional Imaging Needed Mammogram BI-RADS: 0 Incomplete: needs additional imaging evaluation If this report indicates you need additional imaging, and it has NOT yet been performed, please call , to schedule. We sincerely thank you for choosing the [facility] for your breast imaging needs. Multiple national specialty organizations have released breast cancer screening guidelines for women at average risk for developing breast cancer - guidelines that are based on both evidence and opinion, yet differ on when to start and how often to screen for breast cancer. With representation from Breast Imaging, Internal Medicine, Women's Health, Family Medicine, and Medical/Surgical Oncology, the [facility] has carefully reviewed the data and reached [...] their providers when to stop screening mammograms. Learning Developer: Gi Transcribe Date/Time: Aug 13 2023 1:56P Dictated by : JAYLEEN CASTELLANOS MD This examination was interpreted and the report reviewed and electronically signed by: JAYLEEN CASTELLANOS MD on Aug 14 2023 11:00AM EST [id number] [facility] MR Cervical spine WO contras ton 07-29-2023 [facility] Absolute lymphocyte countOrd ered By: Law Gold on 05-01-2023 Lymphocytes Auto (Unsp spec) [#/Vol] 1.22 10*3/uL 0.83-4.51 [facility] Activated partial thrombopla stin time (aPTT) in platelet poor plasma by coagulation aOrdered By: Law Gold on 05-01-2023 aPTT Coag (PPP) [Time] 23.0 s 24.1-36.2 [facility] Automated lymphocyte count a s percentage of total leukocytesOrdered By: Law Gold on 05-01-2023 Lymphocytes/100 WBC Auto (Unsp spec) 19.9 % 19-41 [facility] Basophil percentageOrdered B y: Law Gold on 05-01-2023 Basophils/100 WBC (Bld) 0.8 % 0-1 [facility] Chloride [Moles/Vol] 106 mmol/L 98-107 [facility] Eosinophils/100 WBC (Bld) 5.2 % 0-5 [facility] Glucose [Mass/Vol] 87 mg/dL 74-106 [facility] Hemoglobin (Bld) [Mass/Vol] 10.7 g/dL 12.0-15.0 [facility] Monocytes/100 WBC (Bld) 11.6 % 0-10 [facility] Neutrophils (Bld) [#/Vol] 3.8 10*3/uL 2.0-7.7 [facility] Neutrophils/100 WBC (Bld) 62.2 % 47-70 [facility] Potassium [Moles/Vol] 4.4 mmol/L 3.5-5.1 [facility] Sodium [Moles/Vol] 139 mmol/L 136-145 [facility] WBC (Bld) [#/Vol] 6.1 10*3/uL 4.4-11.0 [facility] Determination of erythrocyte mean corpuscular volume (MCV)Ordered By: Law Gold on 05-01-2023 MCV (RBC) [Entitic vol] 90.3 fL 81-99 [facility] Erythrocyte distribution wid th ratioOrdered By: Law Gold on 05-01-2023 Erythrocyte distribution width (RBC) [Ratio] 13.2 % 11.6-14.6 [facility] Erythrocyte distribution wid th standard deviationOrdered By: Law Gold on 05-01-2023 Erythrocyte distribution width (RBC) [Entitic vol] 43.1 fL 35.1-43.9 [facility] Hematocrit Auto (Bld) [Volum e fraction]Ordered By: Law Gold on 05-01-2023 Hematocrit (Bld) [Volume fraction] 34.3 % 37-47 [facility] Immature granulocytes/100 WB C Auto (Bld)Ordered By: Law Gold on 05-01-2023 Immature granulocytes/100 WBC (Bld) 0.300 % 0.0-0.9 [facility] Comment on above: IG% - Immature Granu locytes (promyelocytes, myelocytes and metamyelocytes) > 1% indicates that a LEFT SHIFT is Present. International normalized rat io (INR) calculationOrdered By: Law Gold on 05-01-2023 INR Coag (PPP) [Relative time] 1.3 {INR} [facility] Laboratory - Chemistry and C hemistry - challengeOrdered By: Law Gold on 05-01-2023 CO2 [Moles/Vol] 28.0 mmol/L 21.0-32.0 [facility] Urea nitrogen/Creatinine [Mass ratio] 18.9 mg/mg 10-20 [facility] Laboratory - CoagulationOrde red By: Law Gold on 05-01-2023 PT Coag (PPP) [Time] 16.1 s 11.7-14.9 [facility] Laboratory - Hematology and Cell countsOrdered By: Law Gold on 05-01-2023 MCH (RBC) [Entitic mass] 28.2 pg 27.0-32.0 [facility] MCHC (RBC) [Mass/Vol] 31.2 g/dL 32-36 [facility] Nucleated RBC/100 WBC (Bld) [Ratio] 0 % 0-5 [facility] Platelets (Bld) [#/Vol] 311 10*3/uL 150-450 [facility] No Panel InformationOrdered By: Law Gold on 05-01-2023 Estimated Creatinine Clearance Calc 51.35 ml/min [facility] Estimated GFR (MDRD) Amer 89 mL/min >60 [facility] Comment on above: GFR Calc Estimated GFR (MDRD) Non-Af Amer 74 mL/min >60 [facility] Comment on above: Non- GFR Calc Platelet mean volume [place] (Bld) [Entitic vol]Ordered By: Law Gold on 05-01-2023 Platelet mean volume (Bld) [Entitic vol] 8.4 fL 6.2-12.0 [facility] RBC Auto (Bld) [#/Vol]Ordere d By: Law Gold on 05-01-2023 RBC (Bld) [#/Vol] 3.80 10*6/uL 4.2-5.4 [facility] Serum or plasma calcium taylor urement (mass/volume)Ordered By: Law Gold on 05-01-2023 Calcium [Mass/Vol] 8.9 mg/dL 8.5-10.1 [facility] Serum or plasma creatinine m easurement (mass/volume)Ordered By: Law Gold on 05-01-2023 Creatinine [Mass/Vol] 0.79 mg/dL 0.55-1.02 [facility] Comment on above: The validity of the calculated GFR & GFRAA in patients over 70 years has not been determined. Clinical correlation is essential. Serum or plasma urea nitroge n measurement (mass/volume)Ordered By: Law Gold on 05-01-2023 Urea nitrogen [Mass/Vol] 15 mg/dL 7-18 [facility] Thin prep Papanicolaou smear with manual screeningOrdered By: Law Gold on 05-01-2023 Thin prep Papanicolaou smear with manual screening 5 5-15 [facility] Absolute lymphocyte countOrd ered By: Darline Lundy on 02-06-2023 Lymphocytes Auto (Unsp spec) [#/Vol] 2.15 10*3/uL 0.83-4.51 [facility] Basophil percentageOrdered B y: Darline Lundy on 02-06-2023 Basophils/100 WBC (Bld) 0.4 % 0-1 [facility] Chloride [Moles/Vol] 108 mmol/L 98-107 [facility] Eosinophils/100 WBC (Bld) 2.6 % 0-5 [facility] Glucose [Mass/Vol] 90 mg/dL 74-106 [facility] Neutrophils (Bld) [#/Vol] 3.9 10*3/uL 2.0-7.7 [facility] Neutrophils/100 WBC (Bld) 55.6 % 47-70 [facility] Potassium [Moles/Vol] 4.2 mmol/L 3.5-5.1 [facility] Sodium [Moles/Vol] 140 mmol/L 136-145 [facility] WBC (Bld) [#/Vol] 7.0 10*3/uL 4.4-11.0 [facility] Blood erythrocytes count (nu mber/volume)Ordered By: Darline Lundy on 02-06-2023 RBC (Bld) [#/Vol] 2.47 10*6/uL 4.2-5.4 [facility] Blood hemoglobin measurement (mass/volume)Ordered By: Darline Lundy on 02-06-2023 Hemoglobin (Bld) [Mass/Vol] 7.8 g/dL 12.0-15.0 [facility] Blood lymphocytes/100 leukoc ytesOrdered By: Darline Lundy on 02-06-2023 Lymphocytes/100 WBC (Bld) 30.5 % 19-41 [facility] Blood monocytes/100 leukocyt esOrdered By: Darline Lundy on 02-06-2023 Monocytes/100 WBC (Bld) 10.2 % 0-10 [facility] Blood platelet mean volumeOr dered By: Darline Lundy on 02-06-2023 Platelet mean volume (Bld) [Entitic vol] 8.9 fL 6.2-12.0 [facility] COVID-19 virus antigen assay Ordered By: Darline Lundy on 02-06-2023 SARS-CoV-2 (COVID-19) Ag IA.rapid Ql (Resp) [facility] SARS-CoV-2 (COVID-19) Ag IA.rapid Ql (Resp) [facility] Determination of erythrocyte mean corpuscular volume (MCV)Ordered By: Darline Lundy on 02-06-2023 MCV (RBC) [Entitic vol] 90.7 fL 81-99 [facility] Hematocrit Auto (Bld) [Volum e fraction]Ordered By: Darline Lundy on 02-06-2023 Hematocrit (Bld) [Volume fraction] 22.4 % 37-47 [facility] Laboratory - Chemistry and C hemistry - challengeOrdered By: Darline Lundy on 02-06-2023 CO2 [Moles/Vol] 29.0 mmol/L 21.0-32.0 [facility] Urea nitrogen/Creatinine [Mass ratio] 25.2 mg/mg 10-20 [facility] Laboratory - Hematology and Cell countsOrdered By: Darline Lundy on 02-06-2023 Erythrocyte distribution width (RBC) [Entitic vol] 45.7 fL 35.1-43.9 [facility] Erythrocyte distribution width (RBC) [Ratio] 14.2 % 11.6-14.6 [facility] Immature granulocytes/100 WBC (Bld) 0.700 % 0.0-0.9 [facility] Comment on above: IG% - Immature Granu locytes (promyelocytes, myelocytes and metamyelocytes) > 1% indicates that a LEFT SHIFT is Present. MCH (RBC) [Entitic mass] 28.7 pg 27.0-32.0 [facility] Nucleated RBC/100 WBC (Bld) [Ratio] 0 % 0-5 [facility] MCHC Auto (RBC) [Mass/Vol]Or dered By: Darline Lundy on 02-06-2023 MCHC (RBC) [Mass/Vol] 31.7 g/dL 32-36 [facility] Comment on above: Delta: 33.5 on 02/0540 No Panel InformationOrdered By: Darline Lundy on 02-06-2023 Estimated Creatinine Clearance Calc 34.90 ml/min [facility] Estimated GFR (MDRD) Amer 115 mL/min >60 [facility] Comment on above: GFR Calc Estimated GFR (MDRD) Non-Af Amer 95 mL/min >60 [facility] Comment on above: Non- GFR Calc Platelets bldOrdered By: Maribeth Lundy on 02-06-2023 Platelets (Bld) [#/Vol] 227 10*3/uL 150-450 [facility] Serum or plasma calcium taylor urement (mass/volume)Ordered By: Darline Lundy on 02-06-2023 Calcium [Mass/Vol] 7.9 mg/dL 8.5-10.1 [facility] Serum or plasma creatinine m easurement (mass/volume)Ordered By: Darline Lundy on 02-06-2023 Creatinine [Mass/Vol] 0.64 mg/dL 0.55-1.02 [facility] Comment on above: The validity of the calculated GFR & GFRAA in patients over 70 years has not been determined. Clinical correlation is essential. Serum or plasma urea nitroge n measurement (mass/volume)Ordered By: Darline Lundy on 02-06-2023 Urea nitrogen [Mass/Vol] 16 mg/dL 7-18 [facility] Thin prep Papanicolaou smear with manual screeningOrdered By: Darline Lundy on 02-06-2023 Thin prep Papanicolaou smear with manual screening 3 5-15 [facility] Blood manual differential co mment interpretation (narrative result)Ordered By: Darline Lundy on 02-03-2023 Manual differential comment Enrique (Bld) [Interp] SCANNED [facility] Hypochromatic red blood cell detectionOrdered By: Darline Lundy on 02-03-2023 Hypochromia Ql (Bld) 1+ [facility] Review by pathologistOrdered By: Darline Lundy on 02-03-2023 Pathologist review Enrique (Unsp spec) [Interp] Reviewed [facility] Comment on above: Previous reported re sult: Francine keating Edited by: RGOOD on 02/03/23:1313Severe Normocytic anemia.Clinical correlation necessary.Lucas Smith M.D. 02/03/23 AMENDED REPORT 02/03/23 131 PATH REV previously reported as: Francine keating Basophil percentageOrdered B y: Jasmin Steele on 02-02-2023 Bilirubin [Mass/Vol] 1.10 mg/dL 0.20-1.00 [facility] Comment on above: For patients on eltr ombopag therapy, use of Dimension Capron TBIL is not recommended. Protein [Mass/Vol] 5.6 g/dL 6.4-8.2 [facility] Laboratory - Chemistry and C hemistry - challengeOrdered By: Jasmin Steele on 02-02-2023 ALP [Catalytic activity/Vol] 51 U/L 45-117 [facility] ALT [Catalytic activity/Vol] 7 U/L 13-56 [facility] Globulin (S) [Mass/Vol] 2.8 g/dL 2.2-4.2 [facility] No Panel InformationOrdered By: Davian Grier on 02-02-2023 Vitamin D 25-Hydroxy 34.0 ng/mL [facility] Comment on above: Vitamin D 25(OH) Sta tus Range Deficiency <20 ng/mL (50nmol/L) Insufficiency 20 - 30 ng/mL (50 - 75 nmol/L) Sufficiency 30 - 100 ng/mL (75 - 250 nmol/L) Toxicity >100 ng/mL (>250 nmol/L) Serum or plasma albumin taylor urement (mass/volume)Ordered By: Jasmin Steele on 02-02-2023 Albumin [Mass/Vol] 2.8 g/dL 3.2-5.0 [facility] Serum or plasma albumin/glob ulin mass ratioOrdered By: Jasmin Steele on 02-02-2023 Albumin/Globulin [Mass ratio] 1.0 {ratio} 0.9-2.4 [facility] Thin prep Papanicolaou smear with manual screeningOrdered By: Jasmin Ivette on 02-02-2023 Thin prep Papanicolaou smear with manual screening 16 U/L 15-37 [facility] Absolute lymphocyte countOrd ered By: Niko Lorenz on 02-01-2023 Lymphocytes Auto (Unsp spec) [#/Vol] 1.35 10*3/uL 0.83-4.51 [facility] Basophil percentageOrdered B y: Niko Lorenz on 02-01-2023 Basophils/100 WBC (Bld) 1.0 % 0-1 [facility] Chloride [Moles/Vol] 107 mmol/L 98-107 [facility] Eosinophils/100 WBC (Bld) 1.7 % 0-5 [facility] Glucose [Mass/Vol] 98 mg/dL 74-106 [facility] Neutrophils (Bld) [#/Vol] 2.9 10*3/uL 2.0-7.7 [facility] Neutrophils/100 WBC (Bld) 60.2 % 47-70 [facility] Potassium [Moles/Vol] 4.2 mmol/L 3.5-5.1 [facility] Sodium [Moles/Vol] 141 mmol/L 136-145 [facility] WBC (Bld) [#/Vol] 4.8 10*3/uL 4.4-11.0 [facility] Blood erythrocytes count (nu mber/volume)Ordered By: Niko Lorenz on 02-01-2023 RBC (Bld) [#/Vol] 3.93 10*6/uL 4.2-5.4 [facility] Blood hemoglobin measurement (mass/volume)Ordered By: Niko Lorenz on 02-01-2023 Hemoglobin (Bld) [Mass/Vol] 10.8 g/dL 12.0-15.0 [facility] Blood lymphocytes/100 leukoc ytesOrdered By: Niko Lorenz on 02-01-2023 Lymphocytes/100 WBC (Bld) 28.0 % 19-41 [facility] Blood monocytes/100 leukocyt esOrdered By: Niko Lorenz on 02-01-2023 Monocytes/100 WBC (Bld) 8.9 % 0-10 [facility] Blood platelet mean volumeOr dered By: Niko Lorenz on 02-01-2023 Platelet mean volume (Bld) [Entitic vol] 8.7 fL 6.2-12.0 [facility] Determination of erythrocyte mean corpuscular volume (MCV)Ordered By: Niko Lorenz on 02-01-2023 MCV (RBC) [Entitic vol] 89.6 fL 81-99 [facility] Glucose Glucometer (BldC) [M ass/Vol]Ordered By: Darline Lundy on 02-01-2023 Glucose [Mass/Vol] 99 mg/dL 74-106 [facility] Comment on above: MANAGEMENT OF PATIEN T CARE PER NURSING PROTOCOL Hematocrit Auto (Bld) [Volum e fraction]Ordered By: Niko Lorenz on 02-01-2023 Hematocrit (Bld) [Volume fraction] 35.2 % 37-47 [facility] INR in Blood by Coagulation assayOrdered By: Niko Lorenz on 02-01-2023 INR Coag (Bld) [Relative time] 1.2 {INR} [facility] Laboratory - Chemistry and C hemistry - challengeOrdered By: Niko Lorenz on 02-01-2023 CO2 [Moles/Vol] 30.0 mmol/L 21.0-32.0 [facility] Urea nitrogen/Creatinine [Mass ratio] 18.8 mg/mg 10-20 [facility] Laboratory - Chemistry and C hemistry - challengeOrdered By: Jasmin Steele on 02-01-2023 Natriuretic peptide B (Bld) [Mass/Vol] 145.2 pg/mL 0-100 [facility] Laboratory - CoagulationOrde red By: Niko Lorenz on 02-01-2023 PT Coag (PPP) [Time] 14.8 s 11.7-14.9 [facility] Laboratory - Hematology and Cell countsOrdered By: Niko Lorenz on 02-01-2023 Erythrocyte distribution width (RBC) [Entitic vol] 41.8 fL 35.1-43.9 [facility] Erythrocyte distribution width (RBC) [Ratio] 12.6 % 11.6-14.6 [facility] Immature granulocytes/100 WBC (Bld) 0.200 % 0.0-0.9 [facility] Comment on above: IG% - Immature Granu locytes (promyelocytes, myelocytes and metamyelocytes) > 1% indicates that a LEFT SHIFT is Present. MCH (RBC) [Entitic mass] 27.5 pg 27.0-32.0 [facility] Nucleated RBC/100 WBC (Bld) [Ratio] 0 % 0-5 [facility] MCHC Auto (RBC) [Mass/Vol]Or dered By: Niko Lorenz on 02-01-2023 MCHC (RBC) [Mass/Vol] 30.7 g/dL 32-36 [facility] No Panel InformationOrdered By: Niko Lorenz on 02-01-2023 Estimated Creatinine Clearance Calc 41.05 ml/min [facility] Estimated GFR (MDRD) Amer 83 mL/min >60 [facility] Comment on above: GFR Calc Estimated GFR (MDRD) Non-Af Amer 68 mL/min >60 [facility] Comment on above: Non- GFR Calc Platelets bldOrdered By: Alina Lorenz on 02-01-2023 Platelets (Bld) [#/Vol] 255 10*3/uL 150-450 [facility] Serum or plasma calcium taylor urement (mass/volume)Ordered By: Niko Lorenz on 02-01-2023 Calcium [Mass/Vol] 8.6 mg/dL 8.5-10.1 [facility] Serum or plasma creatinine m easurement (mass/volume)Ordered By: Niko Lorenz on 02-01-2023 Creatinine [Mass/Vol] 0.85 mg/dL 0.55-1.02 [facility] Comment on above: The validity of the calculated GFR & GFRAA in patients over 70 years has not been determined. Clinical correlation is essential. Serum or plasma urea nitroge n measurement (mass/volume)Ordered By: Niko Lorenz on 02-01-2023 Urea nitrogen [Mass/Vol] 16 mg/dL 7-18 [facility] Thin prep Papanicolaou smear with manual screeningOrdered By: Niko Lorenz on 02-01-2023 Thin prep Papanicolaou smear with manual screening 4 5-15 [facility] Basophil percentageOrdered B y: Danielle Saulo on 01-05-2023 Chloride [Moles/Vol] 107 mmol/L 98-107 [facility] Glucose [Mass/Vol] 95 mg/dL 74-106 [facility] Potassium [Moles/Vol] 4.3 mmol/L 3.5-5.1 [facility] Sodium [Moles/Vol] 139 mmol/L 136-145 [facility] Laboratory - Chemistry and C hemistry - challengeOrdered By: Danielle Vernon on 01-05-2023 CO2 [Moles/Vol] 28.0 mmol/L 21.0-32.0 [facility] Urea nitrogen/Creatinine [Mass ratio] 17.8 mg/mg 10-20 [facility] No Panel InformationOrdered By: Danielle Vernon on 01-05-2023 Estimated GFR (MDRD) Amer 68 mL/min >60 [facility] Comment on above: GFR Calc Estimated GFR (MDRD) Non-Af Amer 56 mL/min >60 [facility] Comment on above: Non- GFR Calc Serum or plasma calcium taylor urement (mass/volume)Ordered By: Danielle Vernon on 01-05-2023 Calcium [Mass/Vol] 8.8 mg/dL 8.5-10.1 [facility] Serum or plasma creatinine m easurement (mass/volume)Ordered By: Danielle Vernon on 01-05-2023 Creatinine [Mass/Vol] 1.01 mg/dL 0.55-1.02 [facility] Comment on above: The validity of the calculated GFR & GFRAA in patients over 70 years has not been determined. Clinical correlation is essential. Serum or plasma urea nitroge n measurement (mass/volume)Ordered By: Danielle Vernon on 01-05-2023 Urea nitrogen [Mass/Vol] 18 mg/dL 7-18 [facility] Thin prep Papanicolaou smear with manual screeningOrdered By: Danielle Vernon on 01-05-2023 Thin prep Papanicolaou smear with manual screening 4 5-15 [facility] Absolute lymphocyte counton 2022 Lymphocytes Auto (Unsp spec) [#/Vol] 1.71 10*3/uL 0.83-4.51 [facility] Work Phone: Basophil percentageon 2021 Basophils/100 WBC (Bld) 0.8 % 0-1 [facility] Work Phone: Bilirubin [Mass/Vol] 0.60 mg/dL 0.20-1.00 [facility] Work Phone: Comment on above: For patients on eltr ombopag therapy, use of Dimension Capron TBIL is not recommended. Chloride [Moles/Vol] 106 mmol/L 98-107 [facility] Work Phone: Cholesterol [Mass/Vol] 171 mg/dL <200 [facility] Work Phone: Comment on above: <200 mg/dL Desirable 200-240 mg/dL Borderline >240 mg/dL High Risk Eosinophils/100 WBC (Bld) 1.8 % 0-5 [facility] Work Phone: Glucose [Mass/Vol] 93 mg/dL 74-106 [facility] Work Phone: Neutrophils (Bld) [#/Vol] 2.5 10*3/uL 2.0-7.7 [facility] Work Phone: Neutrophils/100 WBC (Bld) 51.0 % 47-70 [facility] Work Phone: Potassium [Moles/Vol] 4.6 mmol/L 3.5-5.1 [facility] Work Phone: Protein [Mass/Vol] 7.3 g/dL 6.4-8.2 [facility] Work Phone: Sodium [Moles/Vol] 139 mmol/L 136-145 [facility] Work Phone: Triglyceride [Mass/Vol] 76 mg/dL <199 [facility] Work Phone: Comment on above: The drugs N-Acetylcy steine and Metamizole may falsely depress this assay.Serum Triglycerides Reference Interval Normal <150 mg/dL Borderline high 150 - 199 mg/dL High 200 - 499 mg/dL Very High > or = 500 mg/dL WBC (Bld) [#/Vol] 5.0 10*3/uL 4.4-11.0 [facility] Work Phone: Blood erythrocytes count (nu mber/volume)on 2022 RBC (Bld) [#/Vol] 4.37 10*6/uL 4.2-5.4 [facility]: Blood hemoglobin measurement (mass/volume)on 2022 Hemoglobin (Bld) [Mass/Vol] 11.9 g/dL 12.0-15.0 [facility] Work Phone: Blood lymphocytes/100 leukoc yteson 2022 Lymphocytes/100 WBC (Bld) 34.5 % 19-41 [facility] Work Phone: [phone] Blood monocytes/100 leukocyt eson 2022 Monocytes/100 WBC (Bld) 11.7 % 0-10 [facility] Work Phone: Blood platelet mean volumeon 2022 Platelet mean volume (Bld) [Entitic vol] 9.1 fL 6.2-12.0 [facility] Work Phone: Determination of erythrocyte mean corpuscular volume (MCV)on 2022 MCV (RBC) [Entitic vol] 88.3 fL 81-99 [facility] Work Phone: [phone] Hematocrit Auto (Bld) [Volum e fraction]on 2022 Hematocrit (Bld) [Volume fraction] 38.6 % 37-47 [facility] Work Phone: Laboratory - Chemistry and C hemistry - challengeon 2022 ALP [Catalytic activity/Vol] 71 U/L 45-117 [facility] Work Phone: ALT [Catalytic activity/Vol] 16 U/L 13-56 [facility] Work Phone: [phone] CO2 [Moles/Vol] 28.0 mmol/L 21.0-32.0 [facility] Work Phone: Globulin (S) [Mass/Vol] 3.6 g/dL 2.2-4.2 [facility] Work Phone: Urea nitrogen/Creatinine [Mass ratio] 22.8 mg/mg 10-20 [facility] Work Phone: Bilirubin Ql (U) Small (1+) [facility] Work Phone: [phone] Glucose Ql (U) Negative [facility] Work Phone: [phone] Ketones Ql (U) Small (15+) [facility] Work Phone: [phone] pH (U) 6.5 [pH] [facility] Work Phone: [phone] Specific gravity (U) [Rel density] 1.025 [facility] Work Phone: [phone] Urobilinogen (U) [Mass/Vol] 1 mg/dL [facility] Work Phone: [phone] Laboratory - Hematology and Cell countson 2022 Erythrocyte distribution width (RBC) [Entitic vol] 41.6 fL 35.1-43.9 [facility] Work Phone: Erythrocyte distribution width (RBC) [Ratio] 12.7 % 11.6-14.6 [facility] Work Phone: Immature granulocytes/100 WBC (Bld) 0.200 % 0.0-0.9 [facility] Work Phone: Comment on above: IG% - Immature Granu locytes (promyelocytes, myelocytes and metamyelocytes) > 1% indicates that a LEFT SHIFT is Present. MCH (RBC) [Entitic mass] 27.2 pg 27.0-32.0 [facility] Work Phone: Nucleated RBC/100 WBC (Bld) [Ratio] 0 % 0-5 [facility] Work Phone: Hemoglobin Ql (U) Negative [facility] Work Phone: Laboratory - Specimen inform ationon 2022 Clarity (U) Clear [facility] Work Phone: Color (U) STRAW [facility] Work Phone: Laboratory - Urinalysison Nitrite Ql (U) Negative [facility] Work Phone: Protein Ql (U) Trace [facility] Work Phone: [phone] MCHC Auto (RBC) [Mass/Vol]on 2022 MCHC (RBC) [Mass/Vol] 30.8 g/dL 32-36 [facility] Work Phone: No Panel Informationon 03-26 Estimated GFR (MDRD) Amer 68 mL/min >60 [facility] Work Phone: Comment on above: GFR Calc Estimated GFR (MDRD) Non-Af Amer 56 mL/min >60 [facility] Work Phone: Comment on above: Non- GFR Calc Thyroid Stimulating Hormone (TSH) 2.51 uIU/mL 0.358-3.74 [facility] Work Phone: Urine Leukocytes Negatve [facility] Work Phone: Urine Non-Hemolyzed Blood [facility] Work Phone: Platelets bldon 2022 Platelets (Bld) [#/Vol] 311 10*3/uL 150-450 [facility] Work Phone: Serum or plasma albumin taylor urement (mass/volume)on 2022 Albumin [Mass/Vol] 3.7 g/dL 3.2-5.0 [facility] Work Phone: [phone] Serum or plasma albumin/glob ulin mass ratioon 2022 Albumin/Globulin [Mass ratio] 1.0 {ratio} 0.9-2.4 [facility] Work Phone: Serum or plasma calcium taylor urement (mass/volume)on 2022 Calcium [Mass/Vol] 9.0 mg/dL 8.5-10.1 [facility] Work Phone: Serum or plasma cholesterol in HDL measurement (mass/volume)on 2022 Cholesterol in HDL [Mass/Vol] 100 mg/dL >40 [facility] Work Phone: Comment on above: The drugs N-Acetylcy steine and Metamizole may falsely depress this assay. Reference Range HDL <40 mg/dL Low HDL Cholesterol HDL >or= 60 mg/dL High HDL Cholesterol Serum or plasma cholesterol in VLDL measurement (mass/volume)on 2022 Cholesterol in VLDL [Mass/Vol] 15 mg/dL 5-40 [facility] Work Phone: Serum or plasma creatinine m easurement (mass/volume)on 2022 Creatinine [Mass/Vol] 1.01 mg/dL 0.55-1.02 [facility] Work Phone: Comment on above: The validity of the calculated GFR & GFRAA in patients over 70 years has not been determined. Clinical correlation is essential. Serum or plasma low density lipoprotein (LDL) cholesterol measurement (mass/volume)on 2022 Cholesterol in LDL [Mass/Vol] 56 mg/dL 0-130 [facility] Work Phone: Serum or plasma urea nitroge n measurement (mass/volume)on 2022 Urea nitrogen [Mass/Vol] 23 mg/dL 7-18 [facility] Work Phone: Serum or plasma uric acid me asurement (mass/volume)on 2022 Urate [Mass/Vol] 3.8 mg/dL 2.6-6.0 [facility] Work Phone: Comment on above: The drugs N-Acetylcy steine and Metamizole may falsely depress this assay. Thin prep Papanicolaou smear with manual screeningon 2022 Thin prep Papanicolaou smear with manual screening 27 U/L 15-37 [facility] Work Phone: Thin prep Papanicolaou smear with manual screening 5 5-15 [facility] Work Phone: [phone] Vital Signs Date Time Vital Sign Value Performing Clinician Faci lity 01-25-2025 10:36-0400 Body temperature 98.4 [degF] [facility] 01-25-2025 10:36-0400 Diastolic blood pressure 52 mm[Hg] [facility] 01-25-2025 10:36-0400 Heart rate 83 /min [facility] 01-25-2025 10:36-0400 Respiratory rate 16 /min [facility] 01-25-2025 10:36-0400 SaO2% (BldA) [Mass fraction] 98 % [facility] 01-25-2025 10:36-0400 Systolic blood pressure 113 mm[Hg] [facility] 01-25-2025 06:00-0400 Body mass index (BMI) [Ratio] 30.7 kg/m2 [facility] 01-25-2025 06:00-0400 Body weight 75.7 kg [facility] 01-22-2025 08:05-0400 Inhaled oxygen flow rate 2 L/min [facility] 01-20-2025 11:58-0400 Body height 157 cm [facility] 12-28-2024 13:11-0400 Body height 157.48 cm [facility] 12-28-2024 13:11-0400 Body mass index (BMI) [Ratio] 29.4 kg/m2 [facility] 12-28-2024 13:11-0400 Body weight 73.02 kg [facility] 12-28-2024 13:11-0400 Diastolic blood pressure 60 mm[Hg] [facility] 12-28-2024 13:11-0400 Heart rate 83 /min Tressa Bobby [facility] 12-28-2024 13:11-0400 Systolic blood pressure 115 mm[Hg] Tressa Rosales [facility] 09-27-2024 08:22-0400 Body height 157.48 cm Didi Tai WELDER SETTER RESISTANCE MACHINE-C Work Phone: [facility] 09-27-2024 08:22-0400 Body mass index (BMI) [Ratio] 29.4 kg/m2 Didi Lujan WELDER SETTER RESISTANCE MACHINE-C Work Phone: [facility] 09-27-2024 08:22-0400 Body weight 73.02 kg Didi Lujan WELDER SETTER RESISTANCE MACHINE-C Work Phone: [facility] 09-27-2024 08:22-0400 Diastolic blood pressure 72 mm[Hg] Didi Lujan WELDER SETTER RESISTANCE MACHINE-C Work Phone: [facility] 09-27-2024 08:22-0400 Heart rate 72 /min Didi Lujan WELDER SETTER RESISTANCE MACHINE-C Work Phone: [facility] 09-27-2024 08:22-0400 Respiratory rate 16 /min Didi Lujan WELDER SETTER RESISTANCE MACHINE-C Work Phone: [facility] 09-27-2024 08:22-0400 Systolic blood pressure 125 mm[Hg] Didi Lujan WELDER SETTER RESISTANCE MACHINE-C Work Phone: [facility] 07-29-2024 14:17-0400 Diastolic blood pressure 65 mm[Hg] Armen Madison MD Work Phone: [facility] 07-29-2024 14:17-0400 Heart rate 68 /min Armen Madison MD Work Phone: [facility] 07-29-2024 14:17-0400 Systolic blood pressure 110 mm[Hg] Armen Madison MD Work Phone: [facility] 06-28-2024 07:42-0400 Body height 157.5 cm Em Sheldon Work Phone: [facility] 06-28-2024 07:42-0400 Body mass index (BMI) [Ratio] 28.42 kg/m2 Em Flynn APRN.RESIDUE FURNACE OPERATOR Work Phone: [facility] 06-28-2024 07:42-0400 Body weight 70.49 kg Em Flynn APRN.CN P Work Phone: [facility] Comment on above: Per pt. Did not get weighed today 06-28-2024 07:42-0400 Diastolic blood pressure 74 mm[Hg] Em Flynn APRN.RESIDUE FURNACE OPERATOR Work Phone: [facility] 06-28-2024 07:42-0400 Heart rate 76 /min Em Flynn APRN.CN P Work Phone: [facility] 06-28-2024 07:42-0400 SaO2% (BldA) [Mass fraction] 99 % Em Flynn APRN.RESIDUE FURNACE OPERATOR Work Phone: [facility] 06-28-2024 07:42-0400 Systolic blood pressure 112 mm[Hg] Em Flynn APRN.RESIDUE FURNACE OPERATOR Work Phone: [facility] 03-16-2024 08:37-0500 Body height 157.48 cm Alexandra Arreguin WELDER SETTER RESISTANCE MACHINE-C Work Phone: [facility] 03-16-2024 08:37-0500 Body mass index (BMI) [Ratio] 28.7 kg/m2 Alexandra Arreguin WELDER SETTER RESISTANCE MACHINE-C Work Phone: [facility] 03-16-2024 08:37-0500 Body weight 71.21 kg Alexandra Arreguin WELDER SETTER RESISTANCE MACHINE-C Work Phone: [facility] 03-16-2024 08:37-0500 Diastolic blood pressure 62 mm[Hg] Alexandra Arreguin WELDER SETTER RESISTANCE MACHINE-C Work Phone: [facility] 03-16-2024 08:37-0500 Heart rate 59 /min Alexandra Arreguin WELDER SETTER RESISTANCE MACHINE-C Work Phone: [facility] 03-16-2024 08:37-0500 Respiratory rate 18 /min Alexandra Rodríguez WELDER SETTER RESISTANCE MACHINE-C Work Phone: [facility] 03-16-2024 08:37-0500 Systolic blood pressure 97 mm[Hg] Alexandrajenny MccollumArreguin WELDER SETTER RESISTANCE MACHINE-C Work Phone: [facility] 12-31-2023 09:11-0400 Body height 157.5 cm Em Flynn APRN.CN P Work Phone: [facility] 12-31-2023 09:11-0400 SaO2% (BldA) [Mass fraction] 99 % Em Flynn APRN.RESIDUE FURNACE OPERATOR Work Phone: [facility] 09-29-2023 08:59-0400 Body height 157.5 cm Em Flynn APRN.CN P Work Phone: [facility] 09-29-2023 08:59-0400 Body mass index (BMI) [Ratio] 29.81 kg/m2 Em Flynn APRN.RESIDUE FURNACE OPERATOR Work Phone: [facility] 09-29-2023 08:59-0400 Body weight 73.94 kg Em Flynn APRN.CN P Work Phone: [facility] Comment on above: Per pt. Did not get weighed 09-29-2023 08:59-0400 Diastolic blood pressure 69 mm[Hg] Em Flynn APRN.RESIDUE FURNACE OPERATOR Work Phone: [facility] 09-29-2023 08:59-0400 Heart rate 58 /min Em Flynn APRN.CN P Work Phone: [facility] 09-29-2023 08:59-0400 SaO2% (BldA) [Mass fraction] 98 % Em Flynn APRN.RESIDUE FURNACE OPERATOR Work Phone: [facility] 09-29-2023 08:59-0400 Systolic blood pressure 106 mm[Hg] Em Flynn APRN.RESIDUE FURNACE OPERATOR Work Phone: [facility] 08-27-2023 13:39-0400 Body height 157.5 cm Stephan Sheehan PA-C Work Phone: [facility] 08-27-2023 13:39-0400 Body mass index (BMI) [Ratio] 30.12 kg/m2 Stephan Sheehan PA-C Work Phone: [facility] 08-27-2023 13:39-0400 Body weight 74.7 kg Stephan Sheehan PA-C Work Phone: [facility] 08-27-2023 13:39-0400 Diastolic blood pressure 57 mm[Hg] Stephan Sheehan PA-C Work Phone: [facility] 08-27-2023 13:39-0400 Heart rate 60 /min Stephan Sheehan PA-C Work Phone: [facility] 08-27-2023 13:39-0400 Respiratory rate 18 /min Stephan Sheehan PA-C Work Phone: [facility] 08-27-2023 13:39-0400 SaO2% (BldA) [Mass fraction] 100 % Stephan Sheehan PA-C Work Phone: [facility] 08-27-2023 13:39-0400 Systolic blood pressure 130 mm[Hg] Stephan Sheehan PA-C Work Phone: [facility] 07-06-2023 08:13-0400 Body weight 73.94 kg Em Flynn APRN.CN P Work Phone: [facility] 07-06-2023 08:13-0400 Diastolic blood pressure 82 mm[Hg] Em Flynn APRN.RESIDUE FURNACE OPERATOR Work Phone: [facility] 07-06-2023 08:13-0400 Heart rate 72 /min Em Flynn APRN.CN P Work Phone: [facility] 07-06-2023 08:13-0400 SaO2% (BldA) [Mass fraction] 99 % Em Flynn APRN.RESIDUE FURNACE OPERATOR Work Phone: [facility] 07-06-2023 08:13-0400 Systolic blood pressure 128 mm[Hg] Em Flynn APRN.RESIDUE FURNACE OPERATOR Work Phone: [facility] 05-01-2023 18:05-0500 Diastolic blood pressure 69 mm[Hg] WELDER SETTER RESISTANCE MACHINE-C Alexandra Arreguin WELDER SETTER RESISTANCE MACHINE Work Phone: [facility] 05-01-2023 18:05-0500 Heart rate 67 /min WELDER SETTER RESISTANCE MACHINE-C Alexandra Arreguin WELDER SETTER RESISTANCE MACHINE Work Phone[facility] [facility] 05-01-2023 18:05-0500 Respiratory rate 16 /min WELDER SETTER RESISTANCE MACHINE-C Alexandra Arreguin WELDER SETTER RESISTANCE MACHINE Work Phone: [facility] 05-01-2023 18:05-0500 SaO2% (BldA) [Mass fraction] 98 % WELDER SETTER RESISTANCE MACHINE-C Alexandra Arreguin WELDER SETTER RESISTANCE MACHINE Work Phone: [facility] 05-01-2023 18:05-0500 Systolic blood pressure 120 mm[Hg] WELDER SETTER RESISTANCE MACHINE-C Alexandra Arreguin WELDER SETTER RESISTANCE MACHINE Work Phone: [facility] 05-01-2023 13:26-0500 Body height 157.48 cm WELDER SETTER RESISTANCE MACHINE-C Alexandra Arreguin WELDER SETTER RESISTANCE MACHINE Work Phone: [facility] 05-01-2023 13:26-0500 Body mass index (BMI) [Ratio] 30.2 kg/m2 WELDER SETTER RESISTANCE MACHINE-C Alexandra Arreguin WELDER SETTER RESISTANCE MACHINE Work Phone: [facility] 05-01-2023 13:26-0500 Body temperature 98.4 [degF] WELDER SETTER RESISTANCE MACHINE-C Alexandra Arreguin WELDER SETTER RESISTANCE MACHINE Work Phone: [facility] 05-01-2023 13:26-0500 Body weight 74.84 kg WELDER SETTER RESISTANCE MACHINE-C Alexandra Arreguin WELDER SETTER RESISTANCE MACHINE Work Phone: [facility] 02-06-2023 13:59-0400 Body temperature 98.6 [degF] WELDER SETTER RESISTANCE MACHINE-C Alexandra Arreguin WELDER SETTER RESISTANCE MACHINE Work Phone: [facility] 02-06-2023 13:59-0400 Diastolic blood pressure 52 mm[Hg] WELDER SETTER RESISTANCE MACHINE-C Alexandra Arreguin WELDER SETTER RESISTANCE MACHINE Work Phone: [facility] 02-06-2023 13:59-0400 Heart rate 73 /min WELDER SETTER RESISTANCE MACHINE-C Alexandra Arreguin WELDER SETTER RESISTANCE MACHINE Work Phone: [facility] 02-06-2023 13:59-0400 Respiratory rate 16 /min WELDER SETTER RESISTANCE MACHINE-C Alexandra Arreguin WELDER SETTER RESISTANCE MACHINE Work Phone: 5(329)091-596226 [address] 02-06-2023 13:59-0400 SaO2% (BldA) [Mass fraction] 100 % WELDER SETTER RESISTANCE MACHINE-C Alexandra Arreguin WELDER SETTER RESISTANCE MACHINE Work Phone: 6(592)021-216298 [place] [address] 02-06-2023 13:59-0400 Systolic blood pressure 92 mm[Hg] WELDER SETTER RESISTANCE MACHINE-C Alexandra Arreguin WELDER SETTER RESISTANCE MACHINE Work Phone: 1(520)925-057098 [place] [address] 02-06-2023 05:46-0400 Body mass index (BMI) [Ratio] 31.1 kg/m2 WELDER SETTER RESISTANCE MACHINE-C Alexandra Arreguin WELDER SETTER RESISTANCE MACHINE Work Phone: 6(924)546-408498 [place] [address] 02-06-2023 05:46-0400 Body weight 76.6 kg WELDER SETTER RESISTANCE MACHINE-C Alexandra Arreguin WELDER SETTER RESISTANCE MACHINE Work Phone: 2(740)140-948798 [place] [address] 02-02-2023 11:48-0400 Body height 157.48 cm WELDER SETTER RESISTANCE MACHINE-C Alexandra Arreguin WELDER SETTER RESISTANCE MACHINE Work Phone: 3(363)[phone] [address] 02-01-2023 13:44-0400 Body height 157.48 cm WELDER SETTER RESISTANCE MACHINE-C Alexandra Arreguin WELDER SETTER RESISTANCE MACHINE Work Phone: 1(988)270-538098 [place] [address] 02-01-2023 13:44-0400 Body mass index (BMI) [Ratio] 31.1 kg/m2 WELDER SETTER RESISTANCE MACHINE-C Alexandra Arreguin WELDER SETTER RESISTANCE MACHINE Work Phone: 1(882)379-834898 [place] [address] 02-01-2023 13:44-0400 Body temperature 98.4 [degF] WELDER SETTER RESISTANCE MACHINE-C Alexandra Arreguin WELDER SETTER RESISTANCE MACHINE Work Phone: [facility] 02-01-2023 13:44-0400 Body weight 77.1 kg WELDER SETTER RESISTANCE MACHINE-C Alexandra Arreguin WELDER SETTER RESISTANCE MACHINE Work Phone: 5(084)940-928198 [place] [address] 02-01-2023 13:44-0400 Diastolic blood pressure 79 mm[Hg] WELDER SETTER RESISTANCE MACHINE-C Alexandra Arreguin WELDER SETTER RESISTANCE MACHINE Work Phone: [facility] 02-01-2023 13:44-0400 Heart rate 77 /min WELDER SETTER RESISTANCE MACHINE-C Alexandra Arreguin WELDER SETTER RESISTANCE MACHINE Work Phone: [facility] 02-01-2023 13:44-0400 Respiratory rate 20 /min WELDER SETTER RESISTANCE MACHINE-C Alexandra Arreguin WELDER SETTER RESISTANCE MACHINE Work Phone: [facility] 02-01-2023 13:44-0400 SaO2% (BldA) [Mass fraction] 99 % WELDER SETTER RESISTANCE MACHINE-C Alexandra Arreguin WELDER SETTER RESISTANCE MACHINE Work Phone: [facility] 02-01-2023 13:44-0400 Systolic blood pressure 165 mm[Hg] WELDER SETTER RESISTANCE MACHINE-C Alexandra Arreguin WELDER SETTER RESISTANCE MACHINE Work Phone: [facility] 01-20-2023 14:48-0400 Body height 157.5 cm Em Flynn APRN.CN P Work Phone: [facility] 01-20-2023 14:48-0400 Body weight 70.76 kg Em Flynn APRN.CN P Work Phone: [facility] 01-20-2023 14:48-0400 SaO2% (BldA) [Mass fraction] 100 % Em Flynn APRN.RESIDUE FURNACE OPERATOR Work Phone: [facility] 12-29-2022 13:39-0400 Body mass index (BMI) [Ratio] 28 kg/m2 WELDER SETTER RESISTANCE MACHINE-C Alexandra Arreguin WELDER SETTER RESISTANCE MACHINE Work Phone: [facility] 12-29-2022 13:39-0400 Body weight 69.39 kg WELDER SETTER RESISTANCE MACHINE-C Alexandra Arreguin WELDER SETTER RESISTANCE MACHINE Work Phone: [facility] 12-29-2022 13:39-0400 Diastolic blood pressure 78 mm[Hg] WELDER SETTER RESISTANCE MACHINE-C Alexandra Arreguin WELDER SETTER RESISTANCE MACHINE Work Phone: [facility] 12-29-2022 13:39-0400 Heart rate 60 /min WELDER SETTER RESISTANCE MACHINE-C Alexandra Arreguin WELDER SETTER RESISTANCE MACHINE Work Phone: [facility] 12-29-2022 13:39-0400 Respiratory rate 16 /min WELDER SETTER RESISTANCE MACHINE-C Alexandra Arreguin WELDER SETTER RESISTANCE MACHINE Work Phone: [facility] 12-29-2022 13:39-0400 Systolic blood pressure 152 mm[Hg] WELDER SETTER RESISTANCE MACHINE-C Alexandra Arreguin WELDER SETTER RESISTANCE MACHINE Work Phone: [facility] 10-09-2022 12:48-0400 Body height 157.5 cm Linden Flynn MD Work Phone: [facility] 10-09-2022 12:48-0400 Body weight 68.63 kg Linden Flynn MD Work Phone: [facility] 10-09-2022 12:48-0400 SaO2% (BldA) [Mass fraction] 99 % Linden Flynn MD Work Phone: [facility] 2022 14:59-0500 Body height 157.[address] [facility] Work Phone: 2022 14:59-0500 Body mass index (BMI) [Ratio] 25.2 kg/m2 [facility] Work Phone: 2022 14:59-0500 Body temperature 97.7 [degF] [facility] Work Phone: 2022 14:59-0500 Body weight 62.[address] [facility] Work Phone: 2022 14:59-0500 Diastolic blood pressure 70 mm[Hg] [facility] Work Phone: 2022 14:59-0500 Heart rate 138 /min [facility] Work Phone: 2022 14:59-0500 Respiratory rate 18 /min [facility] Work Phone: 2022 14:59-0500 SaO2% (BldA) [Mass fraction] 100 % [facility] Work Phone: 2022 14:59-0500 Systolic blood pressure 130 mm[Hg] [facility] Work Phone: 02-24-2022 16:15-0500 Body mass index (BMI) [Ratio] 25.6 kg/m2 [facility] Work Phone: 02-24-2022 16:15-0500 Body temperature 97.5 [degF] [facility] Work Phone: 02-24-2022 16:15-0500 Body weight 63.[address] [facility] Work Phone: 02-24-2022 16:15-0500 Diastolic blood pressure 60 mm[Hg] [facility] Work Phone: 02-24-2022 16:15-0500 Heart rate 85 /min [facility] Work Phone: 02-24-2022 16:15-0500 Respiratory rate 18 /min [facility] Work Phone: 02-24-2022 16:15-0500 SaO2% (BldA) [Mass fraction] 100 % [facility] Work Phone: 02-24-2022 16:15-0500 Systolic blood pressure 122 mm[Hg] [facility] Work Phone: Encounters Encounter Date Encounter Type Care Provider Facility Start: 02-15-2025 End: 02-15-[facility] Start: 01-25-2025 Non-patient / Non-visit Dr. Estella Kelly MD -[facility] Work Phone: Start: 01-24-2025 Non-patient / Non-visit Dr. Estella Kelly MD -[facility] Work Phone: Start: 01-23-2025 Non-patient / Non-visit Dr. Estella Kelly MD -[facility] Work Phone: Start: 01-22-2025 Non-patient / Non-visit Dr. Estella Kelly MD -[facility] Work Phone: Start: 01-21-2025 Non-patient / Non-visit Dr. Estella Kelly MD -[facility] Work Phone: Start: 01-20-2025 Non-patient / Non-visit Dr. Danielle anderson MD -[facility] Work Phone: Start: 01-20-2025 Non-patient / Non-visit Dr. Zeus Martel DO -[facility] Work Phone: Start: 01-20-2025 ambulatory Davian Kelly Fac ility:[facility] Start: 01-20-2025 End: 01-25-2025 Evaluation and management of inpatient Dr. Davian Kelly MD -[facility] Work Phone: Start: 01-19-2025 End: 01-20-2025 Emergency department patient visit ALEXANDRA ARREGUIN Facility:[facility] Start: 12-28-2024 End: 12-28-[address] Alexandria Dejesus MD -[facility] Work Phone: Start: 12-28-2024 End: 12-28-2024 ambulatory Tressa HALL -[facility] Start: 11-07-2024 ambulatory Danielle Vernon Facility:[facility] Start: 11-07-2024 Non-patient / Non-visit Dr. Danielle anderson MD -[facility] Start: 11-03-2024 ambulatory Danielle Vernon Facility:[facility] Start: 11-03-2024 Non-patient / Non-visit Dr. Danielle anderson MD -[facility] Start: 11-03-2024 End: 11-03-2024 ambulatory Tressa HALL -[facility] Start: 11-03-2024 End: 11-03-[address] Danielle Vernon MD -[facility] Work Phone: Start: 11-03-2024 End: 11-03-2024 ambulatory Danielle Vernon Facility:[facility] Start: 09-27-2024 End: 09-27-[address] Danielle Vernon MD -[facility] Work Phone: Start: 09-27-2024 End: 09-27-2024 ambulatory Didi Lujan NP-C Work Phone: [facility] Work Phone: Start: 07-29-2024 End: 07-29-2024 ambulatory ALEXANDRA Anay ARREGUIN Facility:[facility] Start: 07-29-2024 End: 07-29-2024 Office outpatient new 30 minutes Armen Madison MD Work Phone: 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 [place] Work Phone: Start: 06-03-2024 End: 06-03-2024 ambulatory Didi Lujan NP Facility:[facility] Start: 03-16-2024 End: 03-16-[address] Danielle Vernon MD -[facility] Work Phone: Start: 03-16-2024 End: 03-16-2024 ambulatory Danielle Vernon Facility:[facility] Start: 12-31-2023 End: 12-31-2023 Patient encounter procedure Em Flynn APRN.RESIDUE FURNACE OPERATOR Work Phone: Neurology Comment on above: Dysphagia, unspecifi ed type (Primary Dx); Parkinson's disease without dyskinesia or fluctuating manifestations (HCC); Orthostatic hypotension Start: 11-20-2023 Documentation procedure Mammog dae Coordinator [facility] Start: 11-20-2023 Letter encounter Mammography Coordinator [facility] Start: 11-20-2023 End: 11-20-2023 Subsequent hospital visit by physician Screening Ultrasound Main Work Phone: Mammography Start: 10-21-2023 Telephone encounter Stephan juan PA-C Work Phone: [facility] [place] Comment on above: [place] [place] - O ther Start: 10-16-2023 Telephone encounter Yury Jasso MD Work Phone: Orthopaedics Comment on above: Patient Update; Radha ent Question; Orders Start: 10-02-2023 End: 10-02-2023 Patient encounter procedure Yury Jasso MD Work Phone: Orthopedics Comment on above: Acute pain of left s moisesulder Start: 09-29-2023 End: 09-29-2023 Patient encounter procedure Em Flynn APRN.RESIDUE FURNACE OPERATOR Work Phone: Neurology Comment on above: Parkinson's disease without dyskinesia or fluctuating manifestations (HCC) (Primary Dx); Orthostatic hypotension; Hallucinations; Dysphagia, unspecified type Start: 09-29-2023 ambulatory UNKNOWN PROVIDER Facili ty:[facility] Start: 09-29-2023 End: 09-29-2023 Subsequent hospital visit by physician [facility] Work Phone: Radiology Comment on above: Chronic left shoulde r pain [M25.512, G89.29] Start: 09-23-2023 ambulatory DIDI LUJAN Facilit y:[facility] Start: 09-23-2023 End: 09-23-2023 Subsequent hospital visit by physician Screen/Diagnostic Mammo [facility] Work Phone: Mammography Comment on above: Inconclusive mammogr am [R92.2] Start: 09-14-2023 Orders Only Yury Jasso MD Work Phone: Orthopedics Comment on above: Chronic left shoulde r pain (Primary Dx) Start: 09-02-2023 Telephone encounter Stephan juan PA-C Work Phone: [facility] [place] Start: 08-27-2023 End: 08-27-2023 Patient encounter procedure Stephan Sheehan PA-C Work Phone: [facility] [place] Comment on above: Acute pain of left s houlder (Primary Dx); Protrusion of cervical intervertebral disc; Pain in left elbow Start: 08-14-2023 Documentation procedure Mammog dae Coordinator [facility] Start: 08-14-2023 Letter encounter Mammography Coordinator [facility] Start: 08-13-2023 ambulatory DIDI LUJAN Facilit y:[facility] Start: 08-13-2023 End: 08-13-2023 Subsequent hospital visit by physician Screen/Diagnostic Mammo [facility] Work Phone: Mammography Comment on above: Encounter for screen ing mammogram for malignant neoplasm of breast [Z12.31] Asymptomatic [place] [Z78.0] Start: 08-03-2023 Telephone encounter Em villarreal APRN.RESIDUE FURNACE OPERATOR Work Phone: Neurology Comment on above: Results Start: 07-29-2023 End: 07-29-2023 Subsequent hospital visit by physician [facility] (1.5t[facility] Start: 07-06-2023 End: 07-06-2023 Patient encounter procedure Em Flynn APRN.RESIDUE FURNACE OPERATOR Work Phone: Neurology Comment on above: Parkinson's disease without dyskinesia or fluctuating manifestations (HCC) (Primary Dx); Orthostatic hypotension; Dysphagia, unspecified type; Left arm pain; Numbness and tingling in left arm Start: 05-01-2023 End: 05-01-2023 Emergency department patient visit WELDER SETTER RESISTANCE MACHINE-C Alexandra Arreguin WELDER SETTER RESISTANCE MACHINE [facility] Work [facility]: Start: 02-06-2023 Non-patient / Non-visit WELDER SETTER RESISTANCE MACHINE-C D ora Arreguin WELDER SETTER RESISTANCE MACHINE Work Phone: [facility] Work Phone: Start: 02-05-2023 Non-patient / Non-visit WELDER SETTER RESISTANCE MACHINE-C D ora Arreguin WELDER SETTER RESISTANCE MACHINE Work Phone: [facility] Work Phone: Start: 02-04-2023 Non-patient / Non-visit WELDER SETTER RESISTANCE MACHINE-C D ora Arreguin WELDER SETTER RESISTANCE MACHINE Work Phone: [facility] Work Phone: Start: 02-03-2023 Non-patient / Non-visit WELDER SETTER RESISTANCE MACHINE-C D ora Arreguin WELDER SETTER RESISTANCE MACHINE Work Phone: [facility] Work Phone: Start: 02-02-2023 Non-patient / Non-visit WELDER SETTER RESISTANCE MACHINE-C D ora Arreguin WELDER SETTER RESISTANCE MACHINE Work Phone: [facility] Work Phone: Start: 02-01-2023 End: 02-06-2023 Evaluation and management of inpatient WELDER SETTER RESISTANCE MACHINE-C Alexandra Arreguin WELDER SETTER RESISTANCE MACHINE [facility] Work Phone: Start: 01-20-2023 End: 01-20-2023 Patient encounter procedure Em Flynn APRN.RESIDUE FURNACE OPERATOR Work Phone: Neurology Comment on above: Parkinson's disease without dyskinesia or fluctuating manifestations (Primary Dx); Hallucinations; Orthostatic hypotension; Insomnia, unspecified type Start: 01-05-2023 End: 01-05-2023 Patient encounter procedure WELDER SETTER RESISTANCE MACHINE-C Alexandra Arreguin WELDER SETTER RESISTANCE MACHINE Work Phone: [facility] Work Phone: Start: 12-29-2022 End: 12-29-2022 Patient encounter procedure WELDER SETTER RESISTANCE MACHINE-C Alexandra Arreguin NP Work Phone: [facility] Work Phone: Start: 10-09-2022 End: 10-09-2022 Office outpatient new 45 minutes Linden Flynn MD Work Phone: Neurology Comment on above: Parkinson's disease (HCC) (Primary Dx); Argyria of skin, accidental or unintentional, sequela; Depression, unspecified depression type Start: 2022 End: 2022 ambulatory [facility] Work Phone: Start: 2022 End: 2022 Patient encounter procedure [facility], Specimen Procedures Date Procedure Procedure Detail Performing Clinician Start: 01-25-2025 [facility] Start: 01-24-2025 Estimated creatinine clearance Tressadennis Rosales OLS Start: 01-23-2025 Total iron binding c apacity measurement Tressajenny Rosalse OLS Start: 01-20-2025 Plain X-ray of hip Shob Bobby OLS Start: 01-20-2025 Fluoroscopic guidance [facility] Bobby OLS Start: 01-20-2025 [facility] Start: 01-20-2025 Prosthetic uncemente d hemiarthroplasty of hip [facility] Bobby OLS Start: 01-20-2025 Urnls dip stick/tabl et reagent auto microscopy Tressajenny Rosales OLS Start: 01-20-2025 Serum inorganic phos phate measurement Tressajenny Rosales OLS Start: 11-03-2024 Cardiovascular stres s test using pharmacologic stress agent Tressa Rosales OLS Start: 06-03-2024 Radionuclide study of abdomen Alexandra Arreguin WELDER SETTER RESISTANCE MACHINE-C Work Phone: Start: 10-02-2023 Arthrocentesis aspir &/inj major jt/bursa w/o us Yury Jasso MD Work Phone: Start: 09-29-2023 Radex shoulder compl ete minimum 2 views Claudia Manuel PA-C Work Phone: Start: 09-23-2023 Us breast uni real t jason with image limited [facility] Provider Start: 07-29-2023 Mri spinal canal cer vical w/o contrast matrl Em Flynn AMBULATORY CARE NURSEJorgitoRESIDUE FURNACE OPERATOR Work Phone: Start: 05-01-2023 CT cervical spine wi thout contrast WELDER SETTER RESISTANCE MACHINE-C Alexandra Arreguin WELDER SETTER RESISTANCE MACHINE Work Phone: Start: 05-01-2023 CT of head without contrast WELDER SETTER RESISTANCE MACHINE-C Alexandra Arreguin WELDER SETTER RESISTANCE MACHINE Work Phone: Start: 02-06-2023 Viral antigen assay WELDER SETTER RESISTANCE MACHINE- C Alexandra Arreguin WELDER SETTER RESISTANCE MACHINE Work Phone: Start: 02-02-2023 Plain X-ray of hip WELDER SETTER RESISTANCE MACHINE-C Alexandra Arreguin WELDER SETTER RESISTANCE MACHINE Work Phone: Start: 02-02-2023 Open reduction of fr acture of femur with internal fixation WELDER SETTER RESISTANCE MACHINE-C Alexandra Arreguin WELDER SETTER RESISTANCE MACHINE Work Phone: Start: 02-02-2023 Fluoroscopic guidance N P-C Alexandra Arreguin WELDER SETTER RESISTANCE MACHINE Work Phone: Start: 02-01-2023 Plain x-ray of elbow WELDER SETTER RESISTANCE MACHINE -C Alexandra Arreguin WELDER SETTER RESISTANCE MACHINE Work Phone: Start: 02-01-2023 CT of head without contrast WELDER SETTER RESISTANCE MACHINE-C Alexandra Arreguin WELDER SETTER RESISTANCE MACHINE Work Phone: Start: 02-01-2023 Plain chest X-ray WELDER SETTER RESISTANCE MACHINE-C Alexandra Arreguin WELDER SETTER RESISTANCE MACHINE Work Phone: Start: 02-01-2023 Plain X-ray of femur WELDER SETTER RESISTANCE MACHINE -C Alexandra Arreguin WELDER SETTER RESISTANCE MACHINE Work Phone: Plan of Treatment Date Care Activity Detail Author Start: 01-25-2025 Patient discharge [facility] Start: 01-20-2025 Provision of overbed trapeze [facility] Start: 01-20-2025 End: 01-20-2025 [facility] Start: 01-20-2025 Ambulation therapy management [facility] Start: 01-20-2025 Application of device [facility] Start: 01-20-2025 Assessment of risk of venous thromboembolism [facility] Start: 01-20-[address] [facility] Start: 01-20-2025 Exercises [facility] Start: 01-20-2025 Following clinical pathway protocol [facility] Start: 01-20-2025 Introduction of urinary catheter [facility] Start: 01-20-2025 Measuring intake and output [facility] Start: 01-20-2025 Neurovascular assessment [facility] Start: 01-20-2025 Patient education [facility] Start: 01-20-2025 Procedure discontinued [facility] Start: 01-20-2025 Provision of activity privileges [facility] Start: 01-20-2025 Recommendation to continue with treatment [facility] Start: 01-20-2025 Referral for physical therapy [facility] Start: 01-20-2025 Referral to occupational therapist [facility] Start: 01-20-2025 Vital signs measurements [facility] Start: 01-20-2025 Wound care [facility] Start: 01-20-2025 Care planning and problem solving actions [facility] Start: 01-20-2025 [facility] Start: 01-20-2025 Application of intermittent pneumatic compression device [facility] Start: 01-20-2025 Following clinical pathway protocol [facility] Start: 01-20-2025 Oxygen therapy [facility] Start: 01-20-2025 Referral to service [facility] Start: 01-20-2025 Admission procedure [facility] Start: 01-20-2025 Assessment of risk of venous thromboembolism [facility] Start: 01-20-2025 Insertion of catheter into peripheral vein [facility] Start: 01-20-2025 Providing care according to standard [facility] Start: 01-20-2025 Consultation [facility] Start: 01-20-[address] [facility] Start: 01-20-2025 Measuring intake and output [facility] Start: 01-20-2025 End: 01-20-2025 [facility] Start: 12-29-2024 End: 12-29-2024 Patient encounter procedure 12/29/2024 10:00 AM EDT Office Visit Neurology [address] [address] Em Flynn APRN.RESIDUE FURNACE OPERATOR [address] [address] 6 month follow up Neurology Comment on above: 6 month follow up Start: 07-29-2024 End: 07-29-2024 Patient encounter procedure 07/29/2024 3:00 PM EDT Office Visit Neuromuscular [facility] [address] [place] [address] Armen Madison MD [address] [place] [address] 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 [facility]rom[facility] Comment on above: 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 Start: 07-29-2024 End: 10-28-2024 Cobalamin (Vitamin B12) [Mass/volume] in Serum or Plasma [facility] Comment on above: Expected: 07/29/2024, Expires: Start: 07-29-2024 End: 10-28-2024 Folate [Mass/volume] in Serum or Plasma [facility] Comment on above: Expected: 07/29/2024, Expires: Start: 07-29-2024 End: 10-28-2024 Hemoglobin A1c in Blood [facility] Work Phone: Comment on above: Expected: 07/29/2024, Expires: Start: 07-29-2024 End: 10-28-2024 IMMUNOFIXATION SCREEN, SERUM [facility] Comment on above: Expected: 07/29/2024, Expires: Start: 07-29-2024 End: 10-28-2024 KAPPA/ERASMO,KATE,SER [facility] Comment on above: Expected: 07/29/2024, Expires: Start: 07-29-2024 End: 10-28-2024 Methylmalonate [Moles/volume] in Serum or Plasma [facility] Comment on above: Expected: 07/29/2024, Expires: Start: 07-29-2024 End: 10-28-2024 VITAMIN B1 (THIAMINE), WHOLE BLOOD [facility] Comment on above: Expected: 07/29/2024, Expires: Start: 06-02-2024 Urine microalbumin profile DTaP,Tdap,Td Vaccine (2 - Td or Tdap) [facility] Start: 04-13-2024 Advance Directive Discussion Advance Directive Discussion [facility] Start: 04-07-2024 End: 04-07-2024 Patient encounter procedure 04/07/2024 10:00 AM EST Office Visit Neurology [address] [phone] Em Flynn, AMBULATORY CARE NURSE.RESIDUE FURNACE OPERATOR [address] [place] [address] 3 month follow up Neurology Comment on above: 3 month follow up Start: 12-31-2023 End: 12-31-2023 Patient encounter procedure 12/31/2023 9:00 AM EDT Office Visit Neurology [address] [address] Em Flynn, AMBULATORY CARE NURSE.RESIDUE FURNACE OPERATOR [address] [place] [address] 3 month follow up Neurology Comment on above: 3 month follow up Start: 12-13-2023 Covid-19 Vaccine ( season) Covid-19 Vaccine ( season) [facility] Start: 12-13-2023 Covid-19 Vaccine ( season) Covid-19 Vaccine ( season) [facility] Start: 12-13-2023 Influenza vaccination [facility] Start: 11-20-2023 End: 11-20-2023 Patient encounter procedure 11/20/2023 7:45 AM EDT Appointment Mammography [address] [address] INCONCLUSIVE MAMMOGRAM - ORDER SCANNED IN [facility] 09/24/23 Mammography Comment on above: INCONCLUSIVE MAMMOGRAM - ORDER SCANNED I N [facility] 09/24/23 Start: 10-02-2023 End: 10-02-2023 Patient encounter procedure Orthopedics Comment on above: Acute pain of left shoulder [M25.512] L shoulder Start: 09-29-2023 End: 09-29-2023 Patient encounter procedure 09/29/2023 9:00 AM EDT Office Visit Neurology [address] [phone] Em Flynn, AMBULATORY CARE NURSE.RESIDUE FURNACE OPERATOR [address] [address] Return in about 3 months (around 10/06/2023). Neurology Comment on above: Return in about 3 months (around 10/06/19). Start: 09-23-2023 End: 09-23-2023 Patient encounter procedure 09/23/2023 9:20 AM EDT Appointment Mammography [address] [place] [address] Franki breast us, left breast diagnostic mammogram Mammography Comment on above: Franki breast us, left breast diagnostic m ammogram Start: 09-23-2023 Subsequent hospital visit by physician 09/23/2023 9:20 AM EDT Hospital Encounter Mammography [address] [place] [address] Inconclusive mammogram [R92.2] Mammography Comment on above: Inconclusive mammogram [R92.2] Start: 08-27-2023 End: 08-27-2023 Patient encounter procedure 08/27/2023 1:40 PM EDT Office Visit [facility] [address] [address] Stephan Sheehan PA-C [address] [id number] 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] [facility] Comment on above: Protrusion of cervical intervertebral di sc [M50.20] Start: 08-13-2023 End: 08-13-2023 Patient encounter procedure Mammography Comment on above: MAMMOGRAM SCREENING BILATERAL DEXA BONE DENSITY Start: 05-01-2023 [facility] Start: 04-13-2023 Advance Directive Discussion Advance Directive Discussion [facility] Start: 04-13-2023 Behavioral Health Screening Behavioral Health Screening [facility] Start: 04-13-2023 Depression Assessment Depression Assessment [facility] Start: 02-09-2023 Blood chemistry [facility] Start: 02-08-2023 Blood chemistry [facility] Start: 02-07-2023 Blood chemistry [facility] Start: 02-06-2023 Patient discharge [facility] Start: 02-03-2023 Administration of blood product [facility] Start: 02-02-2023 Ambulation therapy management [facility] Start: 02-02-2023 Application of device [facility] Start: 02-02-2023 Exercises [facility] Start: 02-02-2023 Following clinical pathway protocol [facility] Start: 02-02-2023 Introduction of urinary catheter [facility] Start: 02-02-2023 Neurovascular assessment [facility] Start: 02-02-2023 Patient education [facility] Start: 02-02-2023 Provision of activity privileges [facility] Start: 02-02-2023 Recommendation to continue with treatment [facility] Start: 02-02-2023 Referral to occupational therapist [facility] Start: 02-02-2023 Referral to service [facility] Start: 02-02-2023 Vital signs measurements [facility] Start: 02-02-2023 Wound care [facility] Start: 02-02-2023 [facility] Start: 02-02-2023 End: 02-02-2023 Measuring intake and output [facility] Start: 02-01-2023 Application of intermittent pneumatic compression device [facility] Start: 02-01-2023 Following clinical pathway protocol [facility] Start: 02-01-2023 Application of ice collar, cap or bag [facility] Start: 02-01-2023 Assessment of risk of venous thromboembolism [facility] Start: 02-01-2023 Bedrest [facility] Start: 02-01-2023 Consultation [facility] Start: 02-01-2023 Fall prevention [facility] Start: 02-01-2023 Inhalation therapy procedure [facility] Start: 02-01-2023 Insertion of catheter into peripheral vein [facility] Start: 02-01-2023 Introduction of urinary catheter [facility] Start: 02-01-2023 Neurovascular assessment [facility] Start: 02-01-2023 Providing care according to standard [facility] Start: 02-01-2023 Referral to occupational therapist [facility] Start: 02-01-2023 Referral to service [facility] Start: 02-01-2023 Skin care [facility] Start: 02-01-2023 [facility] Start: 02-01-2023 End: 02-01-2023 Measuring intake and output [facility] Start: 02-01-2023 Admission procedure [facility] Start: 02-01-2023 Hospital admission, emergency, from emergency room, medical nature [facility] Start: 02-01-2023 Brain natriuretic peptide measurement [facility] Start: 12-12-2022 Covid-19 Vaccine ( season) Covid-19 Vaccine ( season) [facility] Start: 12-12-2022 Influenza vaccination [facility] Start: 04-13-2022 ADVANCE DIRECTIVE DISCUSSION ADVANCE DIRECTIVE DISCUSSION [facility] Start: 04-13-2022 DEPRESSION ASSESSMENT DEPRESSION ASSESSMENT [facility] Start: 01-07-2019 Shingrix Vaccine (2 of 2) Shingrix Vaccine (2 of 2) [facility] Start: 2016 RSV Vaccine (1 - 1-dose 75+ series) RSV Vaccine (1 - 1-dose 75+ series) [facility] Start: 2006 BONE DENSITY BONE DENSITY [facility] Start: 2006 Bone Density Screening Bone Density Screening [facility] Start: 2006 Pneumococcal Vaccine: 65+ (1 - PCV) Pneumococcal Vaccine: 65+ (1 - PCV) [facility] Start: 2006 Pneumococcal Vaccine: 65+ (1 of 1 - PCV) Pneumococcal Vaccine: 65+ (1 of 1 - PCV) [facility] Start: 2006 PNEUMOCOCCAL: 65+ (1 - PCV) PNEUMOCOCCAL: 65+ (1 - PCV) [facility] Start: 2006 Screening for osteoporosis Bone Density Screening [facility] Start: 2001 RSV Vaccine (1 - 1-dose 60+ series) RSV Vaccine (1 - 1-dose 60+ series) [facility] Start: 1991 SHINGRIX VACCINE (1 of 2) SHINGRIX VACCINE (1 of 2) [facility] Start: 1986 DIABETES SCREEN DIABETES SCREEN [facility] Start: 1986 Diabetes Screening Diabetes Screening [facility] Start: 1960 Urine microalbumin profile [facility] Start: 1959 Anxiety Screening Anxiety Screening [facility] Start: 1959 Depression Screening Depression Screening [facility] Start: 1959 Hepatitis B surface antibody level LDL CHOLESTEROL [facility] Start: 1941 COVID-19 VACCINE (#1) COVID-19 VACCINE (#1) [facility] Hematocrit [Volume Fraction] of Blood [facility] Hematocrit [Volume Fraction] of Blood [facility] Hemoglobin [Mass/vol ume] in Blood [facility] Hemoglobin [Mass/vol ume] in Blood [facility] Leukocytes [#/volume ] in Blood [facility] Leukocytes [#/volume ] in Blood [facility] Mean corpuscular hemoglobin concentration determination [facility] Mean corpuscular hemoglobin concentration determination [facility] Mean corpuscular hemoglobin determination [facility] Mean corpuscular hemoglobin determination [facility] End: 08-04-2024 MR Cervical spine WO contrast MRI CERVICAL SPINE WO IVCON Radiology Routine 1 Occurrences starting 07/06/2023 until 08/04/2024 [facility] Work Phone: Comment on above: 1 Occurrences starting 07/06/2023 until 08/04/2024 Neutrophil count [facility] Neutrophil count [facility] Neutrophil percent differential count [facility] Neutrophil percent differential count [facility] Patient Education [facility] Work Phone: Patient referral [facility] Work Phone: Platelets [#/volume] in Blood [facility] Platelets [#/volume] in Blood [facility] Red blood cell count [facility] Red blood cell count [facility] Red cell distributio n width determination [facility] Red cell distributio n width determination [facility] XR Shoulder - left 3 Views XR SHOULDER GENERAL 3V OR MORE AP/TRUE AP/OTHER LEFT Radiology Routine Chronic left shoulder pain 1 Occurrences starting 09/15/2023 [facility] Work Phone: Comment on above: 1 Occurrences starting 09/15/2023 [facility] Payers Date Payer Category Payer Self-pay 2024 Medicaid [id number] 2023 Medicaid [id number] 2023 Medicare (Managed Care) [facility] MEDICARE [id number] 2023 Medicare [id number] 2022 Medicare [id number] Unknown [id number] Unknown [id number] 2.16.840.1.703026.3.579.2. 462 Unknown [id number] 2.16.840.1.255201.3.579.2. 462 Unknown [id number] 2.16.840.1.132124.3.579.2. 462 Unknown [id number] 2.16.840.1.627513.3.579.2. 462 Unknown [id number] 2.16.840.1.317951.3.579.2. 462 Unknown [id number] 2.16.840.1.581830.3.579.2. 462 Unknown [id number] 2.16.840.1.028158.3.579.2. 462 Unknown [id number] 2.16.840.1.449151.3.579.2. 462 Unknown [id number] 2.16.840.1.870854.3.579.2. 462 Unknown [id number] 2.16.840.1.559166.3.579.2. 462 Unknown [id number] 2.16.840.1.430774.3.579.2. 462 Unknown [id number] 2.16.840.1.718596.3.579.2. 462 Unknown [id number] 2.16.840.1.647417.3.579.2. 462 Unknown [id number] 2.16.840.1.981275.3.579.2. 462 Unknown [id number] 2.16.840.1.806787.3.579.2. 462 Social History Date Type Detail Facility Start: 2022 End: 05-01-2023 Tobacco smoking status [facility] Unknown if ever smoked [facility] Start: 1940 Sex Assigned At Female [facility] Start: 10-09-2022 End: 01-20-2025 Tobacco smoking status MDIS Ex-smoker [facility] History of tobacco use Current smoker [facility] History of tobacco use Cigarette Smoker [facility] Start: 10-09-2022 End: 08-27-2023 Tobacco use and exposure Smokeless tobacco non-user [facility] Start: 10-09-2022 End: 07-29-2024 Alcohol intake Lifetime non-drinker (finding) [facility] Start: 1940 Sex Assigned At Not on file [facility] Start: 01-20-2023 End: 07-29-2024 History of Social function [facility] Start: 01-20-2023 End: 07-29-2024 Tobacco use panel [facility] National Score (1-100), lower number is lower risk 51 [facility] Start: 06-16-2024 [facility] (finding[facility] Highlighted row [facility] NEGATED: Highlighted rowStart: NINF History of tobacco use Passive smoker [facility] Medical Equipment Procedure Code Equipment Code Equipment Origin al Text Equipment Identifier Dates Primary uncemented hemiarthroplasty of hip ([id number]) Uncoated hip femur prosthesis, one-piece [id number] FDA Start: 01-20-2025 Primary uncemented hemiarthroplasty of hip Uncoated hip femur prosthesis, one-piece ()[id number] FDA Start: 01-20-2025 Primary uncemented hemiarthroplasty of hip ([id number]) Coated hip femur prosthesis, modular ()[id number] FDA Start: 01-20-2025 ORIF, hip, using Gamma nail ([id number]) Orthopaedic bone screw, non-bioabsorbable, sterile ()[id number] FDA Start: 02-02-2023 ORIF, hip, using Gamma nail ([id number]) Femur nail, sterile ()[id number] FDA Start: 02-02-2023 ORIF, hip, using Gamma nail ([id number]) Orthopaedic bone screw, non-bioabsorbable, sterile ()[id number] FDA Start: 02-02-2023 Goals Date Patient Goal Desired Activity /State Functional Status Date Assessment Result Facility 01-25-2025 Functional status Ambulates [facility] Work Phone: 02-06-2023 Functional status Ambulates [facility] Work Phone: Mental Status Date Assessment Result Facility 01-25-2025 Cognitive function Voice/Name [facility] Work Phone: 02-06-2023 Cognitive function Voice/Name [facility] Work Phone: Clinical Notes 10-09-2022 to 01-25-2025 Note Date & Type Note Facility 01-25-2025 Note [facility] Medical Records Department [address] [place] [address] Discharge Summary 01/25/25 1449 MR#: [id number] Acct: [id number] Name: MONISHA COHN Rep #: [id number] : 1940 84 From: Davian Kelly MD PCP: Tressa Rosales Status:DIS IN [id number] Providers Date of Admission: 01/20/25 Primary Care Physician: Tressa Rosales Consultations 01/20/25 01:06 Consult: Orthopedics Routine Consulting Provider: Braulio Tijerina Reason for Consult: Impacted Femoral Neck Fracture after Fall. EMERGENT Consult: No MD Notified: Yes Date Notified: 01/20/25 Time Notified: 01:07 Method of Notification: ED Physician Initiated Reason For Visit: FALL WITH RIGHT HIP FRACTURE Diagnosis Discharge Diagnosis (1) Closed hip fracture: Status: Acute Code(s): S72.009A - Fracture of unspecified part of neck of unspecified femur, initial encounter for closed fracture Qualifiers: Encounter type: initial encounter Laterality: left Qualified Code(s): S72.002A - Fracture of unspecified part of neck of left femur, initial encounter for closed fracture (2) Metacarpal bone fracture: Status: Acute Code(s): S62.309A - Unspecified fracture of unspecified metacarpal bone, initial encounter for closed fracture Qualifiers: Encounter type: initial encounter Metacarpal bone: unspecified metacarpal Fracture type: c losed Metacarpal location: shaft Fracture alignment: nondisplaced Qualified Code(s): S62.359A - Nondisplaced fracture of shaft of unspecified metacarpal bone, initial encounter for closed fracture (3) COVID-19: Status: Acute Code(s): U07.1 - COVID-19 Medications at Discharge Home Medications acetaminophen 325 mg capsule 650 mg PO Q6H PRN fever or pain 05/01/23 atorvastatin 40 mg tablet 40 mg PO QHS hld 05/01/23 polyethylene glycol 3350 17 gram/dose oral powder (ClearLax) 17 g PO DAILY 05/01/23 psyllium husk 3.4 gram/5.4 gram oral powder (Stacie-Mucil) 1 tbsp PO DAILY 05/01/23 alendronate 70 mg tablet 70 mg PO QWEEK osteoporosis 09/27/24 carbidopa 25 mg-levodopa 100 mg tablet 2 tab PO DAILY parkinson 09/27/24 celecoxib 200 mg capsule 200 mg PO QDAY 09/27/24 duloxetine 20 mg capsule,delayed release 20 mg PO QDAY 09/27/24 tramadol 50 mg tablet 50 mg PO TID PRN pain 09/27/24 guaifenesin 100 mg/5 mL oral liquid 200 mg PO Q4H PRN cough 12/28/24 melatonin 3 mg capsule 3 mg PO HS PRN sleep 12/28/24 simethicone 125 mg chewable tablet (Mylanta Gas) 125 mg PO QD-BID PRN abdominal distention 12/28/24 ascorbic acid (vitamin C) 500 mg capsule 500 mg PO DAILY supplement 01/20/25 carbidopa 25 mg-levodopa 100 mg tablet (Dhivy) 1.5 tab PO TID parkinson 01/20/25 cholecalciferol (vitamin D3) 50 mcg (2,000 unit) capsule 50 mcg PO DAILY supplement 01/20/25 cyanocobalamin (vitamin B-12) 5,000 mcg capsule 5,000 mcg PO DAILY supplement 01/20/25 mirabegron 50 mg tablet,extended release 24 hr (Myrbetriq) 50 mg PO DAILY bladder 01/20/25 nirmatrelvir 300 mg (150 mg x2)-ritonavir 100 mg tablet,dose pack (Paxlovid) See Rx Instructions PO .COMPLEX 01/20/25 aspirin 81 mg tablet,delayed release 81 mg PO BREAKFAST #0 tabs 01/25/25 rivaroxaban 10 mg tablet (Xarelto) 10 mg PO DAILY@0600 9 days #0 tabs 01/25/25 Hospital Course Operations - (Right hip endoprosthesis) Procedures None Summary of Care Provided Minutes Spent on Discharge: 35 Hospital Course: Per HPI: MONISHA COHN, is a 84 F with a past medical history of essential hypertension; currently not on treatment, hyperlipidemia; on atorvastatin, former tobacco abuse; with subsequent COPD and pulmonary hypertension, CAD; with RCA stent at [facility] in [place] (2009) and subsequent inferior wall ST elevation [place] s/p RCA stent with cardiogenic shock and cardiac arrest x 3 (2021) on baby aspirin daily, history of nonrheumatic mitral/tricuspid valve insufficiency, Parkinson's disease; on carbidopa-levodopa 3 times daily, fibromyalgia, depression; on duloxetine, history of argyria (bluish skin discoloration); attributed to taking colloidal silver for protracted period of time, OAB; on mirabegron, chronic constipation; on polyethylene glycol daily plus simethicone twice daily as needed, history of gout; currently not on treatment, osteoporosis; on alendronate weekly, OA; on celecoxib plus tramadol 3 times daily as needed and recently diagnosed COVID-19 who was transferred from [facility] after she was diagnosed with an impacted Right femoral neck fracture in the setting of already being on nirmatrelvir-ritonavir. According to the records the patient was at her ECF when she sustained a mechanical fall onto her Right side with subsequent inability to ambulate. She was noted to have a scalp hematoma with a metacarpal fracture of her Right hand but she denied LOC with her fall. Dr. [facility] spoke to Dr. Tijerina of the orthopedic service here (more content not included)... [facility] 01-25-2025 Consult note [facility] 01-25-2025 Consult note [facility] 01-25-2025 Consult note Note Date/Time January 25, 2025 1:00pm [facility] Medical Records Department [address] [place] [address] Counseling Note - Pharmacy 01/25/25 0938 MR#: [id number] Acct: [id number] Name: MONISHA COHN Rep #:[id number] : 1940 84 From: Ephraim severino PCP: Tressa Rosales Status:ADM IN Y Location: [facility] [id number] [place] Med Reconciliation Pharmacy Service has performed discharge medication reconciliation for this patient. The patient's discharge medication list was reviewed for discrepancies and discrepancies were resolved. Medications at Discharge Home Medications acetaminophen 325 mg capsule 650 mg PO Q6H PRN fever or pain 05/01/23 atorvastatin 40 mg tablet 40 mg PO QHS hld 05/01/23 polyethylene glycol 3350 17 gram/dose oral powder (ClearLax) 17 g PO DAILY 05/01/23 psyllium husk 3.4 gram/5.4 gram oral powder (Stacie-Mucil) 1 tbsp PO DAILY 05/01/23 alendronate 70 mg tablet 70 mg PO QWEEK osteoporosis 09/27/24 carbidopa 25 mg-levodopa 100 mg tablet 2 tab PO DAILY parkinson 09/27/24 celecoxib 200 mg capsule 200 mg PO QDAY 09/27/24 duloxetine 20 mg capsule,delayed release 20 mg PO QDAY 09/27/24 tramadol 50 mg tablet 50 mg PO TID PRN pain 09/27/24 guaifenesin 100 mg/5 mL oral liquid 200 mg PO Q4H PRN cough 12/28/24 melatonin 3 mg capsule 3 mg PO HS PRN sleep 12/28/24 simethicone 125 mg chewable tablet (Mylanta Gas) 125 mg PO QD-BID PRN abdominal distention 12/28/24 ascorbic acid (vitamin C) 500 mg capsule 500 mg PO DAILY supplement 01/20/25 carbidopa 25 mg-levodopa 100 mg tablet (Dhivy) 1.5 tab PO TID parkinson 01/20/25 cholecalciferol (vitamin D3) 50 mcg (2,000 unit) capsule 50 mcg PO DAILY supplement 01/20/25 cyanocobalamin (vitamin B-12) 5,000 mcg capsule 5,000 mcg PO DAILY supplement 01/20/25 mirabegron 50 mg tablet,extended release 24 hr (Myrbetriq) 50 mg PO DAILY bladder 01/20/25 nirmatrelvir 300 mg (150 mg x2)-ritonavir 100 mg tablet,dose pack (Paxlovid) SeeRx Instructions PO .COMPLEX 01/20/25 aspirin 81 mg tablet,delayed release 81 mg PO BREAKFAST #0 tabs 01/25/25 rivaroxaban 10 mg tablet (Xarelto) 10 mg PO DAILY@0600 9 days #0 tabs 01/25/25 01/25/25937 <Electronically signed by Ephraim Carrera> Date _ Ephraim Elliott Signature (if applicable): Date CC: ~ Signed [facility] Work Phone: [phone]) 522-836810-15-2025 Discharge summary Author Davian Kelly [facility] Note Date/Time January 25, 2025 9 :25am [facility] Medical Records Department [address] [place] [address] Transfer to [facility] MR#: [id number] Acct: [id number] Name: MONISHA COHN Rep #:[id number] : 1940 84 From: Davian interiano MD PCP: Tressa Rosales Status:ADM IN Certification of patient admission REQUIRED AT TIME OF ADMISSION. I CERTIFY THAT POST-HOSPITAL F SERVICES ARE REQUIRED TO BE GIVEN ON AN IN-PATIENT BASIS BECAUSE OF THE ABOVE NAMED PATIENT'S NEED FOR HALFWAY CARE ON A CONTINUING BASIS FOR THE CONDITION(S) FOR WHICH HE/SHE WAS RECEIVING IN-PATIENT HOSPITAL SERVICES PRIOR TO HIS/HER TRANSFER TO THE [facility]. 01/25/25924<Electronically signed by Davian Kelly MD> Diet Diet Order/Speech Therapy: INPATIENT Hospital Diet / Speech Therapy Order(s) 01/21/25 01:02 Diet: Regular - General Routine Orders/Code Status Routine Lab Work: CBC and BMP Code Status: Full Code DC O2, CPAP, BIPAP needs Home O2 Discharge instructions: No Wound(s) right hip: Wound Type: Surgical Incision Therapies Weight Bearing: Weight bearing as tolerated Physical Therapy: Eval and Treat Occupational Therapy: Eval and Treat Problem/Diagnosis (1) Closed hip fracture: Status: Acute Code(s): S72.009A - Fracture of unspecified part of neck of unspecified femur, initial encounter for closed fracture (2) Metacarpal bone fracture: Status: Acute Code(s): S62.309A - Unspecified fracture of unspecified metacarpal bone, initial encounter for closed fracture (3) COVID-19: Status: Acute Code(s): U07.1 - COVID-19 Plan # Impacted right intertrochanteric fracture of the femoral neck and metacarpal fracture right hand status post repair 01/20/2025 -After mechanical fall at [facility] -Ortho consulted -Patient n.p.o. -Pain control/supportive care -PT/OT postop 01/21/2025: PT/OT pending pre-CERT, she is weightbearing as tolerated and nonweightbearing on her wrist 01/22/2025: Awaiting pre-CERT, hemoglobin has dropped but will recheck in the morning 01/23/2025: Awaiting pre-CERT, hemoglobin is 8.6 which is several points lower than admission however her her hemoglobin tends to run low at times. Will checkiron studies today 01/24/2025: Iron studies were unremarkable, will recheck hemoglobin this afternoon, if she drops below 8 given her coronary artery disease, can transfuse # Parkinson's disease - continue home Sinemet - supportive care #Hx of CAD -w/ previous chronically on aspirin and statin -Continue home medications # Elevated trop - Troponin of 27, 29, and then 28 - No chest pain, fall was mechanical, no significant elevations or concern for ongoing/active process # Recent COVID diagnosis - Supportive care -Reports symptoms started Thursday and she was diagnosed on Thursday, has no shortness of breath or cough or respiratory complaints - Currently doing well on room air # History of fibromyalgia - Continue Cymbalta DVT: Xarelto Allergies/Procedures Done in Hospital Allergies oxycodone (From Percocet) Allergy (Severe, Verified 01/20/25 01:40) Hives Procedures: None (Right hip endoprosthesis) Type of Care/Length of Stay Estimated LOS: Convalescent Care Less Than 30 days Type of Care Needed: Skilled Rehab Potential: Good Prognosis: Good Additional Orders/Day of Discharge Day of Discharge: 01/25/25 Discharge Plan Admission Admit Date/Time: 01/20/25 01:09 Attending Provider: Davian Kelly Primary Care Provider: Tressa Rosales Consulting Providers: Braulio Tiejrina; Stephan Martel; Darline Lundy Discharge Orders/Prescriptions Prescriptions: New Xarelto 10 mg Tablet 10 mg PO DAILY@0600 9 Days Qty: 0 0RF aspirin 81 mg Tablet,Delayed Release (Dr/Ec) 81 mg PO BREAKFAST Qty: 0 0RF Rx Instructions: Once xarelto is completed, start ASA 81 mg BID for 2 weeks, then resume dailydosing Continued alendronate 70 mg tablet 70 mg PO QWEEK duloxetine 20 mg capsule,delayed release(DR/EC) 20 mg PO QDAY celecoxib 200 mg capsule 200 mg PO QDAY carbidopa-levodopa 25-100 mg tablet 2 tab PO DAILY tramadol 50 mg tablet 50 mg PO TID PRN (Reason: pain) guaifenesin 100 mg/5 mL liquid 200 mg PO Q4H PRN (Reason: cough) simethicone [Mylanta Gas] 125 mg tablet,chewable 125 mg PO QD-BID PRN (Reason: abdominal distention) melatonin 3 mg capsule 3 mg PO HS PRN (Reason: sleep) atorvastatin 40 mg tablet 40 mg PO QHS polyethylene glycol 3350 [ClearLax] 17 gram/dose powder 17 g PO DAILY Stacie-Mucil 3.4 gram/5.4 gram powder 1 tbsp PO DAILY Rx Instructions: mix into at least 8 oz of water or juice before administering acetaminophen 325 mg capsule 650 mg PO Q6H PRN (Reason: fever or pain) Paxlovid 300 mg (150 mg x 2)-100 mg tablets,dose pack See Rx Instructions .ROUTE .COMPLEX Rx Instructions: take TWO 150 mg tablets of nirmatrelvir with ONE 100 mg tablet of ritonavir twice daily for 5 days carbidopa-levodopa [Dhivy] 25-100 mg tablet 1.5 tab PO TID mirabegron [Myrbetriq] 50 mg tablet extended release 24 hr 50 mg PO DAILY cyanocobalamin (vitamin B-12) 5,000 mcg capsule 5,000 mcg PO DAILY ascorbic acid (vitamin C) 500 mg capsule 500 mg PO DAILY cholecalciferol (vitamin D3) 50 mcg (2,000 unit) capsule 50 mcg PO DAILY Discontinued aspirin [Adult Aspirin Regimen] 81 mg tablet,delayed release (DR/EC) 81 mg PO DAILY Referrals / Follow Up: Braulio Tijerina MD [Med Staff - Active Staff, Orthopedics] - Within 2 Weeks Tressa Rosales [Primary Care Provider, Medical] Disposition Disposition (needs filled in before D/C Order can be placed): [facility] (1) Closed hip fracture Qualifiers: Encounter type: initial encounter Laterality: left Qualified Code(s): S72.002A - Fracture of unspecified part of neck of left femur, initial encounterfor closed fracture (2) Metacarpal bone fracture Qualifiers: Encounter type: initial encounter Metacarpal bone: unspecified metacarpal Fracture type: closed Metacarpal location: shaft Fracture alignment: nondisplaced Qualified Code(s): S62.359A - Nondisplaced fracture of shaft of unspecified metacarpal bone, initial encounter for closed fracture 01/25/25924 <Electronically signed by Davian Kelly MD> Cosigner Signature (if applicable): CC: Dr. Stephan Martel DO; Dr. Darline Lundy MD; Dr. Braulio Tijerina MD; Tressa Rosales ~ [facility] Work Phone: [phone] Discharge summary [facility] Medical Records Department [address] [place] [address] Transfer to [facility] Care MR#: [id number] Acct: [id number] Name: MONISHA COHN Rep #:[id number] : 1940 84 From: Davian interiano MD PCP: Tressa Rosales Status:ADM IN Certification of patient admission REQUIRED AT TIME OF ADMISSION. I CERTIFY THAT POST-HOSPITAL ECF SERVICES ARE REQUIRED TO BE GIVEN ON AN IN-PATIENT BASIS BECAUSE OF THE ABOVE NAMED PATIENT'S NEED FOR HALFWAY CARE ON A CONTINUING BASIS FOR THE CONDITION(S) FOR WHICH HE/SHE WAS RECEIVING IN-PATIENT HOSPITAL SERVICES PRIOR TO HIS/HER TRANSFER TO THE F. 01/25/25924 Diet Diet Order/Speech Therapy: INPATIENT Hospital Diet / Speech Therapy Order(s) 01/21/25 01:02 Diet: Regular - General Routine Orders/Code Status Routine Lab Work: CBC and BMP Code Status: Full Code DC O2, CPAP, BIPAP needs Home O2 Discharge instructions: No Wound(s) right hip: Wound Type: Surgical Incision Therapies Weight Bearing: Weight bearing as tolerated Physical Therapy: Eval and Treat Occupational Therapy: Eval and Treat Problem/Diagnosis (1) Closed hip fracture: Status: Acute Code(s): S72.009A - Fracture of unspecified part of neck of unspecified femur, initial encounter for closed fracture (2) Metacarpal bone fracture: Status: Acute Code(s): S62.309A - Unspecified fracture of unspecified metacarpal bone, initial encounter for closed fracture (3) COVID-19: Status: Acute Code(s): U07.1 - COVID-19 Plan # Impacted right intertrochanteric fracture of the femoral neck and metacarpal fracture right hand status post repair 01/20/2025 -After mechanical fall at [facility] -Ortho consulted -Patient n.p.o. -Pain control/supportive care -PT/OT postop 01/21/2025: PT/OT pending pre-CERT, she is weightbearing as tolerated and nonweightbearing on her wrist 01/22/2025: Awaiting pre-CERT, hemoglobin has dropped but will recheck in the morning 01/23/2025: Awaiting pre-CERT, hemoglobin is 8.6 which is several points lower than admission however her her hemoglobin tends to run low at times. Will checkiron studies today 01/24/2025: Iron studies were unremarkable, will recheck hemoglobin this afternoon, if she drops below 8 given her coronary artery disease, can transfuse # Parkinson's disease - continue home Sinemet - supportive care #Hx of CAD -w/ previous chronically on aspirin and statin -Continue home medications # Elevated trop - Troponin of 27, 29, and then 28 - No chest pain, fall was mechanical, no significant elevations or concern for ongoing/active process # Recent COVID diagnosis - Supportive care -Reports symptoms started Thursday and she was diagnosed on Thursday, has no shortness of breath or cough or respiratory complaints - Currently doing well on room air # History of fibromyalgia - Continue Cymbalta DVT: Xarelto Allergies/Procedures Done in Hospital Allergies oxycodone (From Percocet) Allergy (Severe, Verified 01/20/25 01:40) Hives Procedures: None (Right hip endoprosthesis) Type of Care/Length of Stay Estimated LOS: Convalescent Care Less Than 30 days Type of Care Needed: Skilled Rehab Potential: Good Prognosis: Good Additional Orders/Day of Discharge Day of Discharge: 01/25/25 Discharge Plan Admission Admit Date/Time: 01/20/25 01:09 Attending Provider: Davian Kelly Primary Care Provider: Tressa Rosales Consulting Providers: Braulio Tijerina; Stephan Martel; Darline Lundy Discharge Orders/Prescriptions Prescriptions: New Xarelto 10 mg Tablet 10 mg PO DAILY@0600 9 Days Qty: 0 0RF aspirin 81 mg Tablet,Delayed Release (Dr/Ec) 81 mg PO BREAKFAST Qty: 0 0RF Rx Instructions: Once xarelto is completed, start ASA 81 mg BID for 2 weeks, then resume dailydosing Continued alendronate 70 mg tablet 70 mg PO QWEEK duloxetine 20 mg capsule,delayed release(DR/EC) 20 mg PO QDAY celecoxib 200 mg capsule 200 mg PO QDAY carbidopa-levodopa 25-100 mg tablet 2 tab PO DAILY tramadol 50 mg tablet 50 mg PO TID PRN (Reason: pain) guaifenesin 100 mg/5 mL liquid 200 mg PO Q4H PRN (Reason: cough) simethicone [Mylanta Gas] 125 mg tablet,chewable 125 mg PO QD-BID PRN (Reason: abdominal distention) melatonin 3 mg capsule 3 mg PO HS PRN (Reason: sleep) atorvastatin 40 mg tablet 40 mg PO QHS polyethylene glycol 3350 [ClearLax] 17 gram/dose powder 17 g PO DAILY Stacie-Mucil 3.4 gram/5.4 gram powder 1 tbsp PO DAILY Rx Instructions: mix into at least 8 oz of water or juice before administering acetaminophen 325 mg capsule 650 mg PO Q6H PRN (Reason: fever or pain) Paxlovid 300 mg (150 mg x 2)-100 mg tablets,dose pack See Rx Instructions .ROUTE .COMPLEX Rx Instructions: take TWO 150 mg tablets of nirmatrelvir with ONE 100 mg tablet of ritonavir twice daily for 5 days carbidopa-levodopa [Dhivy] 25-100 mg tablet 1.5 tab PO TID mirabegron [Myrbetriq] 50 mg tablet extended release 24 hr 50 mg PO DAILY cyanocobalamin (vitamin B-12) 5,000 mcg capsule 5,000 mcg PO DAILY ascorbic acid (vitamin C) 500 mg capsule 500 mg PO DAILY cholecalciferol (vitamin D3) 50 mcg (2,000 unit) capsule 50 mcg PO DAILY Discontinued aspirin [Adult Aspirin Regimen] 81 mg tablet,delayed release (DR/EC) 81 mg PO DAILY Referrals / Follow Up: Braulio Tijerina MD [Med Staff - Active Staff, Orthopedics] - Within 2 Weeks Tressa Rosales [Primary Care Provider, Medical] Disposition Disposition (needs filled in before D/C Order can be placed): [facility] (1) Closed hip fracture Qualifiers: Encounter type: initial encounter Laterality: left Qualified Code(s): S72.002A - Fracture of unspecified part of neck of left femur, initial encounterfor closed fracture (2) Metacarpal bone fracture Qualifiers: Encounter type: initial encounter Metacarpal bone: unspecified metacarpal Fracture type: closed Metacarpal location: shaft Fracture alignment: nondisplaced Qualified Code(s): S62.359A - Nondisplaced fracture of shaft of unspecified metacarpal bone, initial encounter for closed fracture 01/25/25 0925 Cosigner Signature (if applicable): CC: Dr. Stephan Martel DO; Dr. Darline Lundy MD; Dr. Braulio Tijerina MD; Tressa Rosales ~ [facility]10-14-2025 Progress note Author Davian Kelly [facility] Note Date/Time January 24, 2025 1 0:33am [facility] Medical Records Department [address] [place] [address] Progress Note - Hospitalist 01/24/25 1031 MR#: [id number] Acct: [id number] Name: MONISHA COHN Rep #:[id number] : 1940 84 From: Davian interiano MD PCP: Tressa Rosales Status:ADM IN Location: [facility]3 [id number] Subjective Subjective Doing well, no issues overnight. Hemoglobin is dropped to 8.2 will recheck thisafternoon Objective Data Objective Data Vital Signs: Vital Signs Temp Pulse Resp BP Pulse Ox O2 Del Method O2 Flow Rate 98.2 F 65 16 117/47 L 97 Room Air 2 01/24/25 04:50 01/24/25 04:50 01/24/25 04:50 01/24/25 04:50 01/24/25 04:50 01/24/25 04:50 01/22/25 08:05 Oxygen Flow Rate (L/min) 2 Oxygen Delivery Method Room Air Weight: 163 lb 12.855 oz Body Mass Index (BMI) 30.1 Intake & Output: Intake and Output for Last 24 Hours 01/23/25 01/24/25 01/25/25 03:59 03:59 03:59 Intake Total 1620 / 1620 500 / 500 Output Total 1050 / 1050 1000 / 1000 400 / 400 Balance 570 / 570 -500 / -500 -400 / -400 Lab / Micro Data 01/24/25 07:36 01/24/25 07:36 Labs: Laboratory Results - last 24 hr 01/23/25 06:27: Iron 70, TIBC 189 L, Iron Saturation 37.0, Unsaturated IBC 119 L, Ferritin 1208 H 01/24/25 07:36: WBC 8.6, RBC 2.98 L, Hgb 8.2 L, Hct 25.0 L, MCV 83.9, MCH 27.5, MCHC 32.8, RDW Std Deviation 40.6, RDW Coeff of Aleena 13.2, Plt Count 308, MPV 9.1, Sodium 136, Potassium 3.9, Chloride 103, Carbon Dioxide 24.5, Anion Gap 9, BUN 19, Creatinine 0.68 L, Estim Creat Clear Calc 49.12 L, Est GFR (MDRD) Non-Af86, BUN/Creatinine Ratio 28.0 H, Glucose 97, Calcium 8.4 Physical Exam Narrative General: Alert, Oriented x3, Cooperative, No apparent distress HEENT: Atraumatic, PERRLA, EOMI, Normocephalic Oral: Moist Mucosa Neck: Supple, No JVD Lungs: Diminished, Normal air movement, No rhonchi, No wheeze, No rales Cardiovascular: Regular rate, Regular Rhythm, Normal S1, Normal S2, No murmurs Abdomen: Soft, Non Tender, Non-Distended, No Hepato-splenomegaly Extremities: No edema, Capillary Refill Less than 3 Seconds Skin: No rashes, No breakdown, dressing CDI. Skin is bluegray due to colloidal silver Musculoskeletal: Tenderness to the right hip palpation Neurological: No focal neurological deficits, moves all extremities except rightlower extremity due to surgery Psych/Mental Status: Normal Affect, Appropriate Assessment & Plan Assessment/Plan (1) Closed hip fracture: QUALIFIERS: Encounter type: initial encounter Laterality: left Qualified Code(s): S72.002A - Fracture of unspecified part of neck of left femur,initial encounter for closed fracture (2) Metacarpal bone fracture: QUALIFIERS: Encounter type: initial encounter Metacarpal bone: unspecified metacarpal Fracture type: closed Metacarpal location: shaft Fracture alignment: nondisplaced Qualified Code(s): S62.359A - Nondisplaced fracture of shaft of unspecified metacarpal bone, initial encounter for closed fracture (3) COVID-19: PLAN: Plan # Impacted right intertrochanteric fracture of the femoral neck and metacarpal fracture right hand status post repair 01/20/2025 -After mechanical fall at [facility] -Ortho consulted -Patient n.p.o. -Pain control/supportive care -PT/OT postop 01/21/2025: PT/OT pending pre-CERT, she is weightbearing as tolerated and nonweightbearing on her wrist 01/22/2025: Awaiting pre-CERT, hemoglobin has dropped but will recheck in the morning 01/23/2025: Awaiting pre-CERT, hemoglobin is 8.6 which is several points lower than admission however her her hemoglobin tends to run low at times. Will checkiron studies today 01/24/2025: Iron studies were unremarkable, will recheck hemoglobin this afternoon, if she drops below 8 given her coronary artery disease, can transfuse # Parkinson's disease - continue home Sinemet - supportive care #Hx of CAD -w/ previous chronically on aspirin and statin -Continue home medications # Elevated trop - Troponin of 27, 29, and then 28 - No chest pain, fall was mechanical, no significant elevations or concern for ongoing/active process # Recent COVID diagnosis - Supportive care -Reports symptoms started Thursday and she was diagnosed on Thursday, has no shortness of breath or cough or respiratory complaints - Currently doing well on room air # History of fibromyalgia - Continue Cymbalta DVT: Xarelto Charges/Coding Visit Charges Inpatient E&M: 35542 Subs Hosp L2 01/24/25 1033 <Electronically signed by Davian Kelly MD> Cosigner Signature (if applicable): CC: ~ Signed [facility] Work Phone: 1(212) 365-723110-14-2025 Progress note [facility] Medical Records Department [address] [place] [address] Progress Note - Hospitalist 01/24/25 1031 MR#: [id number] Acct: [id number] Name: MONISHA COHN Rep #:[id number] : 1940 84 From: Davian interiano MD PCP: Tressa Rosales Status:ADM IN Location: [place] [id number] Subjective Subjective Doing well, no issues overnight. Hemoglobin is dropped to 8.2 will recheck thisafternoon Objective Data Objective Data Vital Signs: Vital Signs Temp Pulse Resp BP Pulse Ox O2 Del Method O2 Flow Rate 98.2 F 65 16 117/47 L 97 Room Air 2 01/24/25 04:50 01/24/25 04:50 01/24/25 04:50 01/24/25 04:50 01/24/25 04:50 01/24/25 04:50 01/22/25 08:05 Oxygen Flow Rate (L/min) 2 Oxygen Delivery Method Room Air Weight: 163 lb 12.855 oz Body Mass Index (BMI) 30.1 Intake & Output: Intake and Output for Last 24 Hours 01/23/25 01/24/25 01/25/25 03:59 03:59 03:59 Intake Total 1620 / 1620 500 / 500 Output Total 1050 / 1050 1000 / 1000 400 / 400 Balance 570 / 570 -500 / -500 -400 / -400 Lab / Micro Data 01/24/25 07:36 01/24/25 07:36 Labs: Laboratory Results - last 24 hr 01/23/25 06:27: Iron 70, TIBC 189 L, Iron Saturation 37.0, Unsaturated IBC 119 L, Ferritin 1208 H 01/24/25 07:36: WBC 8.6, RBC 2.98 L, Hgb 8.2 L, Hct 25.0 L, MCV 83.9, MCH 27.5, MCHC 32.8, RDW Std Deviation 40.6, RDW Coeff of Aleena 13.2, Plt Count 308, MPV 9.1, Sodium 136, Potassium 3.9, Chloride 103, Carbon Dioxide 24.5, Anion Gap 9, BUN 19, Creatinine 0.68 L, Estim Creat Clear Calc 49.12 L, EstGFR (MDRD) Non- Af86, BUN/Creatinine Ratio 28.0 H, Glucose 97, Calcium 8.4 Physical Exam Narrative General: Alert, Oriented x3, Cooperative, No apparent distress HEENT: Atraumatic, PERRLA, EOMI, Normocephalic Oral: Moist Mucosa Neck: Supple, No JVD Lungs: Diminished, Normal air movement, No rhonchi, No wheeze, No rales Cardiovascular: Regular rate, Regular Rhythm, Normal S1, Normal S2, No murmurs Abdomen: Soft, Non Tender, Non-Distended, No Hepato-splenomegaly Extremities: No edema, Capillary Refill Less than 3 Seconds Skin: No rashes, No breakdown, dressing CDI. Skin is bluegray due to colloidal silver Musculoskeletal: Tenderness to the right hip palpation Neurological: No focal neurological deficits, moves all extremities except rightlower extremity dueto surgery Psych/Mental Status: Normal Affect, Appropriate Assessment & Plan Assessment/Plan (1) Closed hip fracture: QUALIFIERS: Encounter type: initial encounter Laterality: left Qualified Code(s): S72.002A - Fracture of unspecified part of neck of left femur,initial encounter for closed fracture (2) Metacarpal bone fracture: QUALIFIERS: Encounter type: initial encounter Metacarpal bone: unspecified metacarpal Fracture type: closed Metacarpal location: shaft Fracture alignment: nondisplaced Qualified Code(s): S62.359A - Nondisplaced fracture of shaft of unspecified metacarpal bone, initial encounter for closed fracture (3) COVID-19: PLAN: Plan # Impacted right intertrochanteric fracture of the femoral neck and metacarpal fracture right hand status post repair 01/20/2025 -After mechanical fall at [facility] -Ortho consulted -Patient n.p.o. -Pain control/supportive care -PT/OT postop 01/21/2025: PT/OT pending pre-CERT, she is weightbearing as tolerated and nonweightbearing on her wrist 01/22/2025: Awaiting pre-CERT, hemoglobin has dropped but will recheck in the morning 01/23/2025: Awaiting pre-CERT, hemoglobin is 8.6 which is several points lower than admission however her her hemoglobin tends to run low at times. Will checkiron studies today 01/24/2025: Iron studies were unremarkable, will recheck hemoglobin this afternoon, if she drops below 8 given her coronary artery disease, can transfuse # Parkinson's disease - continue home Sinemet - supportive care #Hx of CAD -w/ previous chronically on aspirin and statin -Continue home medications # Elevated trop - Troponin of 27, 29, and then 28 - No chest pain, fall was mechanical, no significant elevations or concern for ongoing/active process # Recent COVID diagnosis - Supportive care -Reports symptoms started Thursday and she was diagnosed on Thursday, has no shortness of breath or cough or respiratory complaints - Currently doing well on room air # History of fibromyalgia - Continue Cymbalta DVT: Xarelto Charges/Coding Visit Charges Inpatient E&M: 74106 Subs Hosp L2 01/24/25 1033 Cosigner Signature (if applicable): CC: ~ Signed [facility]10-13-2025 Progress note Author Davian Kelly [facility] Note Date/Time January 23, 2025 1 1:01am [facility] Medical Records Department [address] [place] [address] Progress Note - Hospitalist 01/23/25 1053 MR#: [id number] Acct: [id number] Name: MONISHA COHN Rep #:[id number] : 1940 84 From: Davian interiano MD PCP: Tressa Rosales Status:ADM IN Location: [facility]3 [id number] Subjective Subjective Pain is controlled, no issues overnight Objective Data Objective Data Vital Signs: Vital Signs Temp Pulse Resp BP Pulse Ox O2 Del Method O2 Flow Rate 98.6 F 92 17 136/64 H 95 Room Air 2 01/23/25 08:10 01/23/25 08:10 01/23/25 08:10 01/23/25 08:10 01/23/25 08:10 01/23/25 08:29 01/22/25 08:05 Oxygen Flow Rate (L/min) 2 Oxygen Delivery Method Room Air Weight: 164 lb 0.383 oz Body Mass Index (BMI) 30.2 Intake & Output: Intake and Output for Last 24 Hours 01/22/25 01/23/25 01/24/25 03:59 03:59 03:59 Intake Total 851 / 851 1620 / 1620 500 / 500 Output Total 850 / 850 1050 / 1050 700 / 700 Balance 570 / 570 -200 / -200 Lab / Micro Data 01/23/25 06:27 01/23/25 06:27 Labs: Laboratory Results - last 24 hr 01/23/25 06:27: WBC 8.6, RBC 3.10 L, Hgb 8.6 L, Hct 25.6 L, MCV 82.6, MCH 27.7, MCHC 33.6, RDW Std Deviation 39.6, RDW Coeff of Aleena 13.2, Plt Count 250, MPV 9.2, Sodium 135, Potassium 3.8, Chloride 102, Carbon Dioxide 24.2, Anion Gap 9, BUN 16, Creatinine 0.61 L, Estim Creat Clear Calc 49.16 L, Est GFR (MDRD) Non-Af89, BUN/Creatinine Ratio 26.3 H, Glucose 105 H, Calcium 8.3 Physical Exam Narrative General: Alert, Oriented x3, Cooperative, No apparent distress HEENT: Atraumatic, PERRLA, EOMI, Normocephalic Oral: Moist Mucosa Neck: Supple, No JVD Lungs: Diminished, Normal air movement, No rhonchi, No wheeze, No rales Cardiovascular: Regular rate, Regular Rhythm, Normal S1, Normal S2, No murmurs Abdomen: Soft, Non Tender, Non-Distended, No Hepato-splenomegaly Extremities: No edema, Capillary Refill Less than 3 Seconds Skin: No rashes, No breakdown, dressing CDI. Skin is bluegray due to colloidal silver Musculoskeletal: Tenderness to the right hip palpation Neurological: No focal neurological deficits, moves all extremities except rightlower extremity due to surgery Psych/Mental Status: Normal Affect, Appropriate Assessment & Plan Assessment/Plan (1) Closed hip fracture: QUALIFIERS: Encounter type: initial encounter Laterality: left Qualified Code(s): S72.002A - Fracture of unspecified part of neck of left femur,initial encounter for closed fracture (2) Metacarpal bone fracture: QUALIFIERS: Encounter type: initial encounter Metacarpal bone: unspecified metacarpal Fracture type: closed Metacarpal location: shaft Fracture alignment: nondisplaced Qualified Code(s): S62.359A - Nondisplaced fracture of shaft of unspecified metacarpal bone, initial encounter for closed fracture (3) COVID-19: PLAN: Plan # Impacted right intertrochanteric fracture of the femoral neck and metacarpal fracture right hand status post repair 01/20/2025 -[facility] fall at [facility] -Ortho consulted -Patient n.p.o. -Pain control/supportive care -PT/OT postop 01/21/2025: PT/OT pending pre-CERT, she is weightbearing as tolerated and nonweightbearing on her wrist 01/22/2025: Awaiting pre-CERT, hemoglobin has dropped but will recheck in the morning 01/23/2025: Awaiting pre-CERT, hemoglobin is 8.6 which is several points lower than admission however her her hemoglobin tends to run low at times. Will checkiron studies today # Parkinson's disease - continue home Sinemet - supportive care #Hx of CAD -w/ previous chronically on aspirin and statin -Continue home medications # Elevated trop - Troponin of 27, 29, and then 28 - No chest pain, fall was mechanical, no significant elevations or concern for ongoing/active process # Recent COVID diagnosis - Supportive care -Reports symptoms started Thursday and she was diagnosed on Thursday, has no shortness of breath or cough or respiratory complaints - Currently doing well on room air # History of fibromyalgia - Continue Cymbalta DVT: Xarelto Charges/Coding Visit Charges Inpatient E&M: 68747 Subs Hosp L2 01/23/25 1101 <Electronically signed by Davian Kelly MD> Cosigner Signature (if applicable): CC: ~ Signed [facility] Work Phone: 1(175) 124-659810-13-2025 Progress note [facility] Medical Records Department [address] [place] [address] Progress Note - Hospitalist 01/23/25 1053 MR#: [id number] Acct: [id number] Name: MONISHA COHN Rep #:[id number] : 1940 84 From: Dvaian interiano MD PCP: Tressa Rosales Status:ADM IN Location: [place] [address] Subjective Subjective Pain is controlled, no issues overnight Objective Data Objective Data Vital Signs: Vital Signs Temp Pulse Resp BP Pulse Ox O2 Del Method O2 Flow Rate 98.6 F 92 17 136/64 H 95 Room Air 2 01/23/25 08:10 01/23/25 08:10 01/23/25 08:10 01/23/25 08:10 01/23/25 08:10 01/23/25 08:29 01/22/25 08:05 Oxygen Flow Rate (L/min) 2 Oxygen Delivery Method Room Air Weight: 164 lb 0.383 oz Body Mass Index (BMI) 30.2 Intake & Output: Intake and Output for Last 24 Hours 01/22/25 01/23/25 01/24/25 03:59 03:59 03:59 Intake Total 851 / 851 1620 / 1620 500 / 500 Output Total 850 / 850 1050 / 1050 700 / 700 Balance 570 / 570 -200 / -200 Lab / Micro Data 01/23/25 06:27 01/23/25 06:27 Labs: Laboratory Results - last 24 hr 01/23/25 06:27: WBC 8.6, RBC 3.10 L, Hgb 8.6 L, Hct 25.6 L, MCV 82.6, MCH 27.7, MCHC 33.6, RDW Std Deviation 39.6, RDW Coeff of Aleena 13.2, Plt Count 250, MPV 9.2, Sodium 135, Potassium 3.8, Chloride 102, Carbon Dioxide 24.2, Anion Gap 9, BUN 16, Creatinine 0.61 L, Estim Creat Clear Calc 49.16 L, EstGFR (MDRD) Non- Af89, BUN/Creatinine Ratio 26.3 H, Glucose 105 H, Calcium 8.3 Physical Exam Narrative General: Alert, Oriented x3, Cooperative, No apparent distress HEENT: Atraumatic, PERRLA, EOMI, Normocephalic Oral: Moist Mucosa Neck: Supple, No JVD Lungs: Diminished, Normal air movement, No rhonchi, No wheeze, No rales Cardiovascular: Regular rate, Regular Rhythm, Normal S1, Normal S2, No murmurs Abdomen: Soft, Non Tender, Non-Distended, No Hepato-splenomegaly Extremities: No edema, Capillary Refill Less than 3 Seconds Skin: No rashes, No breakdown, dressing CDI. Skin is bluegray due to colloidal silver Musculoskeletal: Tenderness to the right hip palpation Neurological: No focal neurological deficits, moves all extremities except rightlower extremity dueto surgery Psych/Mental Status: Normal Affect, Appropriate Assessment & Plan Assessment/Plan (1) Closed hip fracture: QUALIFIERS: Encounter type: initial encounter Laterality: left Qualified Code(s): S72.002A - Fracture of unspecified part of neck of left femur,initial encounter for closed fracture (2) Metacarpal bone fracture: QUALIFIERS: Encounter type: initial encounter Metacarpal bone: unspecified metacarpal Fracture type: closed Metacarpal location: shaft Fracture alignment: nondisplaced Qualified Code(s): S62.359A - Nondisplaced fracture of shaft of unspecified metacarpal bone, initial encounter for closed fracture (3) COVID-19: PLAN: Plan # Impacted right intertrochanteric fracture of the femoral neck and metacarpal fracture right hand status post repair 01/20/2025 -After mechanical fall at [facility] -Ortho consulted -Patient n.p.o. -Pain control/supportive care -PT/OT postop 01/21/2025: PT/OT pending pre-CERT, she is weightbearing as tolerated and nonweightbearing on her wrist 01/22/2025: Awaiting pre-CERT, hemoglobin has dropped but will recheck in the morning 01/23/2025: Awaiting pre-CERT, hemoglobin is 8.6 which is several points lower than admission however her her hemoglobin tends to run low at times. Will checkiron studies today # Parkinson's disease - continue home Sinemet - supportive care #Hx of CAD -w/ previous chronically on aspirin and statin -Continue home medications # Elevated trop - Troponin of 27, 29, and then 28 - No chest pain, fall was mechanical, no significant elevations or concern for ongoing/active process # Recent COVID diagnosis - Supportive care -Reports symptoms started Thursday and she was diagnosed on Thursday, has no shortness of breath or cough or respiratory complaints - Currently doing well on room air # History of fibromyalgia - Continue Cymbalta DVT: Xarelto Charges/Coding Visit Charges Inpatient E&M: 23844 Subs Hosp L2 01/23/25 1101 Cosigner Signature (if applicable): CC: ~ Signed [facility]10-12-2025 Progress note Author Davian Kelly [facility] Note Date/Time January 22, 2025 9 :19am [facility] Medical Records Department [address] [place] [address] Progress Note - Hospitalist 01/22/25917 MR#: [id number] Acct: [id number] Name: MONISHA COHN Rep #:[id number] : 1940 84 From: Davian interiano MD PCP: Tressa Rosales Status:ADM IN Location: [place] [address]-1 Subjective Subjective Doing well, pain is controlled. Objective Data Objective Data Vital Signs: Vital Signs Temp Pulse Resp BP Pulse Ox O2 Del Method O2 Flow Rate 98.4 F 93 18 139/87 H 97 Nasal Cannula 2 01/22/25 04:56 01/22/25 04:56 01/22/25 04:56 01/22/25 04:56 01/22/25 04:56 01/22/25 08:05 01/22/25 08:05 Oxygen Flow Rate (L/min) 2 Oxygen Delivery Method Nasal Cannula Weight: 165 lb 5.547 oz Body Mass Index (BMI) 30.4 Intake & Output: Intake and Output for Last 24 Hours 01/21/25 01/22/25 01/23/25 03:59 03:59 03:59 Intake Total 2241 / 2241 851 / 851 300 / 300 Output Total 1400 / 1400 850 / 850 300 / 300 Balance 841 / 841 0 / 0 Lab / Micro Data 01/22/25 03:24 01/22/25 03:24 Labs: Laboratory Results - last 24 hr 01/22/25 03:24: WBC 8.6, RBC 3.26 L, Hgb 9.1 L, Hct 26.6 L, MCV 81.6, MCH 27.9, MCHC 34.2, RDW Std Deviation 39.3, RDW Coeff of Aleena 13.0, Plt Count 211, MPV 9.2, Sodium 136, Potassium 4.2, Chloride 103, Carbon Dioxide 23.1, Anion Gap 10,BUN 18, Creatinine 0.64 L, Estim Creat Clear Calc 50.86, Est GFR (MDRD) Non-Af 88, BUN/Creatinine Ratio 27.5 H, Glucose 135 H, Calcium 8.2 Physical Exam Narrative General: Alert, Oriented x3, Cooperative, No apparent distress HEENT: Atraumatic, PERRLA, EOMI, Normocephalic Oral: Moist Mucosa Neck: Supple, No JVD Lungs: Diminished, Normal air movement, No rhonchi, No wheeze, No rales Cardiovascular: Regular rate, Regular Rhythm, Normal S1, Normal S2, No murmurs Abdomen: Soft, Non Tender, Non-Distended, No Hepato-splenomegaly Extremities: No edema, Capillary Refill Less than 3 Seconds Skin: No rashes, No breakdown, dressing CDI. Skin is bluegray due to colloidal silver Musculoskeletal: Tenderness to the right hip palpation Neurological: No focal neurological deficits, moves all extremities except rightlower extremity due to surgery Psych/Mental Status: Normal Affect, Appropriate Assessment & Plan Assessment/Plan (1) Closed hip fracture: QUALIFIERS: Encounter type: initial encounter Laterality: left Qualified Code(s): S72.002A - Fracture of unspecified part of neck of left femur,initial encounter for closed fracture (2) Metacarpal bone fracture: QUALIFIERS: Encounter type: initial encounter Metacarpal bone: unspecified metacarpal Fracture type: closed Metacarpal location: shaft Fracture alignment: nondisplaced Qualified Code(s): S62.359A - Nondisplaced fracture of shaft of unspecified metacarpal bone, initial encounter for closed fracture (3) COVID-19: PLAN: Plan # Impacted right intertrochanteric fracture of the femoral neck and metacarpal fracture right hand status post repair 01/20/2025 -After mechanical fall at [facility] -Ortho consulted -Patient n.p.o. -Pain control/supportive care -PT/OT postop 01/21/2025: PT/OT pending pre-CERT, she is weightbearing as tolerated and nonweightbearing on her wrist 01/22/2025: Awaiting pre-CERT, hemoglobin has dropped but will recheck in the morning # Parkinson's disease - continue home Sinemet - supportive care #Hx of CAD -w/ previous chronically on aspirin and statin -Continue home medications # Elevated trop - Troponin of 27, 29, and then 28 - No chest pain, fall was mechanical, no significant elevations or concern for ongoing/active process # Recent COVID diagnosis - Supportive care -Reports symptoms started Thursday and she was diagnosed on Thursday, has no shortness of breath or cough or respiratory complaints - Currently doing well on room air # History of fibromyalgia - Continue Cymbalta DVT: Xarelto Charges/Coding Visit Charges Inpatient E&M: 15713 Subs Hosp L2 01/22/25918 <Electronically signed by Davian Kelly MD> Cosigner Signature (if applicable): CC: ~ Signed [facility] Work Phone: 1(619) 279-639310-12-2025 Progress note [facility] Medical Records Department [address] [place] [address] Progress Note - Hospitalist 01/22/25917 MR#: [id number] Acct: [id number] Name: MONISHA COHN Rep #:[id number] : 1940 84 From: Davian interiano MD PCP: Tressa Rosales Status:ADM IN Location: [place] [address] Subjective Subjective Doing well, pain is controlled. Objective Data Objective Data Vital Signs: Vital Signs Temp Pulse Resp BP Pulse Ox O2 Del Method O2 Flow Rate 98.4 F 93 18 139/87 H 97 Nasal Cannula 2 01/22/25 04:56 01/22/25 04:56 01/22/25 04:56 01/22/25 04:56 01/22/25 04:56 01/22/25 08:05 01/22/25 08:05 Oxygen Flow Rate (L/min) 2 Oxygen Delivery Method Nasal Cannula Weight: 165 lb 5.547 oz Body Mass Index (BMI) 30.4 Intake & Output: Intake and Output for Last 24 Hours 01/21/25 01/22/25 01/23/25 03:59 03:59 03:59 Intake Total 2241 / 2241 851 / 851 300 / 300 Output Total 1400 / 1400 850 / 850 300 / 300 Balance 841 / 841 0 / 0 Lab / Micro Data 01/22/25 03:24 01/22/25 03:24 Labs: Laboratory Results - last 24 hr 01/22/25 03:24: WBC 8.6, RBC 3.26 L, Hgb 9.1 L, Hct 26.6 L, MCV 81.6, MCH 27.9, MCHC 34.2, RDW Std Deviation 39.3, RDW Coeff of Aleena 13.0, Plt Count 211, MPV 9.2, Sodium 136, Potassium 4.2, Chloride 103, Carbon Dioxide 23.1, Anion Gap 10,BUN 18, Creatinine 0.64 L, Estim Creat Clear Calc 50.86, Est GFR (MDRD) Non- Af 88, BUN/Creatinine Ratio 27.5 H, Glucose 135 H, Calcium 8.2 Physical Exam Narrative General: Alert, Oriented x3, Cooperative, No apparent distress HEENT: Atraumatic, PERRLA, EOMI, Normocephalic Oral: Moist Mucosa Neck: Supple, No JVD Lungs: Diminished, Normal air movement, No rhonchi, No wheeze, No rales Cardiovascular: Regular rate, Regular Rhythm, Normal S1, Normal S2, No murmurs Abdomen: Soft, Non Tender, Non-Distended, No Hepato-splenomegaly Extremities: No edema, Capillary Refill Less than 3 Seconds Skin: No rashes, No breakdown, dressing CDI. Skin is bluegray due to colloidal silver Musculoskeletal: Tenderness to the right hip palpation Neurological: No focal neurological deficits, moves all extremities except rightlower extremity dueto surgery Psych/Mental Status: Normal Affect, Appropriate Assessment & Plan Assessment/Plan (1) Closed hip fracture: QUALIFIERS: Encounter type: initial encounter Laterality: left Qualified Code(s): S72.002A - Fracture of unspecified part of neck of left femur,initial encounter for closed fracture (2) Metacarpal bone fracture: QUALIFIERS: Encounter type: initial encounter Metacarpal bone: unspecified metacarpal Fracture type: closed Metacarpal location: shaft Fracture alignment: nondisplaced Qualified Code(s): S62.359A - Nondisplaced fracture of shaft of unspecified metacarpal bone, initial encounter for closed fracture (3) COVID-19: PLAN: Plan # Impacted right intertrochanteric fracture of the femoral neck and metacarpal fracture right hand status post repair 01/20/2025 -After mechanical fall at [facility] -Ortho consulted -Patient n.p.o. -Pain control/supportive care -PT/OT postop 01/21/2025: PT/OT pending pre-CERT, she is weightbearing as tolerated and nonweightbearing on her wrist 01/22/2025: Awaiting pre-CERT, hemoglobin has dropped but will recheck in the morning # Parkinson's disease - continue home Sinemet - supportive care #Hx of CAD -w/ previous chronically on aspirin and statin -Continue home medications # Elevated trop - Troponin of 27, 29, and then 28 - No chest pain, fall was mechanical, no significant elevations or concern for ongoing/active process # Recent COVID diagnosis - Supportive care -Reports symptoms started Thursday and she was diagnosed on Thursday, has no shortness of breath or cough or respiratory complaints - Currently doing well on room air # History of fibromyalgia - Continue Cymbalta DVT: Xarelto Charges/Coding Visit Charges Inpatient E&M: 94986 Subs Hosp L2 01/22/25 0919 Cosigner Signature (if applicable): CC: ~ Signed [facility]10-11-2025 Progress note Author Braulio Tijerina [facility] Note Date/Time January 21, 2025 1 :41pm [facility] Medical Records Department [address] [place] [address] Progress Note - Orthopedic 01/21/25 1335 MR#: [id number] Acct: [id number] Name: MONISHA COHN Rep #:[id number] : 1940 84 From: Braulio Fontana PCP: Tressa Rosales Status:ADM IN Location: [facility] [id number] Subjective Subjective Patient states she is doing well. No significant right hand pain. Splint is inplace. Right hip feels well. She was able to transfer with the staff. Patientwas able to participate in therapy. Patient comes from assisted living and would like to return to assisted living upon discharge. Plan is to establish plan of care first of the week. Overall doing well. No chest pain or shortnessof breath reported. No acute events reported overnight. Objective Data Objective Data Vital Signs: Vital Signs Temp Pulse Resp BP Pulse Ox O2 Del Method O2 Flow Rate 98.3 F 94 18 147/77 H 94 Room Air 2 01/21/25 09:02 01/21/25 09:02 01/21/25 09:02 01/21/25 09:02 01/21/25 10:00 01/21/25 10:00 01/21/25 06:57 Oxygen Flow Rate (L/min) 2 Oxygen Delivery Method Room Air Weight: 175 lb 3.2 oz Body Mass Index (BMI) 32.2 Intake & Output: Intake and Output for Last 24 Hours 01/19/25 01/20/25 01/21/25 23:59 23:59 23:59 Intake Total 2191 / 2191 201 / 201 Output Total 1000 / 1400 600 / 600 Balance 1191 / 791 -399 / -399 Lab / Micro Data Attestation: I reviewed the patient's lab results. 01/21/25 04:40 01/21/25 04:40 Labs: Laboratory Results - last 24 hr 01/21/25 04:40: WBC 12.1 H, RBC 3.51 L, Hgb 9.7 L, Hct 28.9 L, MCV 82.3, MCH 27.6, MCHC 33.6, RDW Std Deviation 39.8, RDW Coeff of Aleena 13.1, Plt Count 209, MPV 8.8, Sodium 135, Potassium 3.8, Chloride 103, Carbon Dioxide 22.5, Anion Gap10, BUN 11, Creatinine 0.69 L, Estim Creat Clear Calc 49.36 L, Est GFR (MDRD) Non-Af 86, BUN/Creatinine Ratio 16.5, Glucose 167 H, Calcium 7.8 Radiography Diagnostic Testing: Radiology Impression Hip X-Ray 01/20/25 15:10 IMPRESSION: Uncomplicated appearing right hip hemiarthroplasty. Left hip surgical and chronic changes. [facility] 01/20/25 16:20 IMPRESSION: Uncomplicated appearing right hip hemiarthroplasty. Left hip chronic and surgical changes. Reading Location: [facility] Physical Exam Const alert, oriented x3 and no apparent distress Extremity Extremity Narrative: Right lower extremity: Dressing is clean dry and intact Sensations intact to light touch saphenous, sural, superficial peroneal, deep peroneal, and tibial distributions Motors intact EHL, DF, PF calves are soft and supple Thigh is soft and supple Assessment & Plan Assessment/Plan (1) Nondisplaced fracture of base of fourth metacarpal bone, right hand, initialencounter for closed fracture: PLAN: Maintain splint. Nonweightbearing right hand. May bear weight through elbow with platform walker. (2) Subcapital fracture of right femur: PLAN: Postop day 1 right hip hemiarthroplasty 1. DVT prophylaxis: Xarelto 10 mg daily for 2 weeks followed by aspirin 81 mg daily for 2 weeks 2. Dressing: Dressing is clean and dry leave on for 5 days. Okay to remove on postop day 5 leave open to air if incision is clean dry and intact continue dry dressing if any drainage continues 3. Pain control: Per primary service 4. Therapy: Weightbearing as tolerated, anterior precautions. Platform walker for right upper extremity injury 5. Incision/wound care: Sutures can be removed on postop day 14 6. Disposition: Patient is orthopedically stable. Okay for discharge when medically appropriate and discharge arrange. Follow-up in office in 2 weeks forx-ray check and wound check. 01/21/25 1341 <Electronically signed by Braulio Tijerina MD> Cosigner Signature (if applicable): CC: ~ Signed [facility] Work Phone: 1(332) 598-503810-11-2025 Progress note [facility] Medical Records Department [address] [place] [address] Progress Note - Orthopedic 01/21/25 1335 MR#: [id number] Acct: [id number] Name: MONISHA COHN Rep #:[id number] : 1940 84 From: Braulio Fontana PCP: Tressa Rosales Status:ADM IN Location: [place] [id number] Subjective Subjective Patient states she is doing well. No significant right hand pain. Splint is inplace. Right hip feels well. She was able to transfer with the staff. Patientwas able to participate in therapy. Patient comes from assisted living and would like to return to assisted living upon discharge. Plan is to establish plan of care first of the week. Overall doing well. No chest pain or shortnessof breath reported. No acute events reported overnight. Objective Data Objective Data Vital Signs: Vital Signs Temp Pulse Resp BP Pulse Ox O2 Del Method O2 Flow Rate 98.3 F 94 18 147/77 H 94 Room Air 2 01/21/25 09:02 01/21/25 09:02 01/21/25 09:02 01/21/25 09:02 01/21/25 10:00 01/21/25 10:00 01/21/25 06:57 Oxygen Flow Rate (L/min) 2 Oxygen Delivery Method Room Air Weight: 175 lb 3.2 oz Body Mass Index (BMI) 32.2 Intake & Output: Intake and Output for Last 24 Hours 01/19/25 01/20/25 01/21/25 23:59 23:59 23:59 Intake Total 2191 / 2191 201 / 201 Output Total 1000 / 1400 600 / 600 Balance 1191 / 791 -399 / -399 Lab / Micro Data Attestation: I reviewed the patient's lab results. 01/21/25 04:40 01/21/25 04:40 Labs: Laboratory Results - last 24 hr 01/21/25 04:40: WBC 12.1 H, RBC 3.51 L, Hgb 9.7 L, Hct 28.9 L, MCV 82.3, MCH 27.6, MCHC 33.6, RDW Std Deviation 39.8, RDW Coeff of Aleena 13.1, Plt Count 209, MPV 8.8, Sodium 135, Potassium 3.8, Chloride 103, Carbon Dioxide 22.5, Anion Gap10, BUN 11, Creatinine 0.69 L, Estim Creat Clear Calc 49.36 L, Est GFR (MDRD) Non-Af 86, BUN/Creatinine Ratio 16.5, Glucose 167 H, Calcium 7.8 Radiography Diagnostic Testing: Radiology Impression Hip X-Ray 01/20/25 15:10 IMPRESSION: Uncomplicated appearing right hip hemiarthroplasty. Left hip surgical and chronic changes. Reading [facility] 01/20/25 16:20 IMPRESSION: Uncomplicated appearing right hip hemiarthroplasty. Left hip chronic and surgical changes. Reading Location: [facility] Physical Exam Const alert, oriented x3 and no apparent distress Extremity Extremity Narrative: Right lower extremity: Dressing is clean dry and intact Sensations intact to light touch saphenous, sural, superficial peroneal, deep peroneal, and tibial distributions Motors intact EHL, DF, PF calves are soft and supple Thigh is soft and supple Assessment & Plan Assessment/Plan (1) Nondisplaced fracture of base of fourth metacarpal bone, right hand, initialencounter for closed fracture: PLAN: Maintain splint. Nonweightbearing right hand. May bear weight through elbow with platform walker. (2) Subcapital fracture of right femur: PLAN: Postop day 1 right hip hemiarthroplasty 1. DVT prophylaxis: Xarelto 10 mg daily for 2 weeks followed by aspirin 81 mg daily for 2 weeks 2. Dressing: Dressing is clean and dry leave on for 5 days. Okay to remove on postop day 5 leave open to air if incision is clean dry and intact continue dry dressing if any drainage continues 3. Pain control: Per primary service 4. Therapy: Weightbearing as tolerated, anterior precautions. Platform walker for right upper extremity injury 5. Incision/wound care: Sutures can be removed on postop day 14 6. Disposition: Patient is orthopedically stable. Okay for discharge when medically appropriate anddischarge arrange. Follow-up in office in 2 weeks forx- ray check and wound check. 01/21/25 1341 Cosigner Signature (if applicable): CC: ~ Signed [facility]10-11-2025 Progress note Author Davian Kelly [facility] Note Date/Time January 21, 2025 9 :43am [facility] Medical Records Department [address] [place] [address] Progress Note - Hospitalist 01/21/25 0939 MR#: [id number] Acct: [id number] Name: SUKIMONISHA ARIEL Rep #:[id number] : 1940 84 From: Davian interiano MD PCP: Tressa Rosales Status:ADM IN Location: [place] EC504-9 Subjective Subjective Doing well, no issues overnight. Pain is controlled Objective Data Objective Data Vital Signs: Vital Signs Temp Pulse Resp BP Pulse Ox O2 Del Method O2 Flow Rate 98.3 F 94 18 147/77 H 94 Room Air 2 01/21/25 09:02 01/21/25 09:02 01/21/25 09:02 01/21/25 09:02 01/21/25 09:02 01/21/25 09:02 01/21/25 06:57 Oxygen Flow Rate (L/min) 2 Oxygen Delivery Method Room Air Weight: 175 lb 3.2 oz Body Mass Index (BMI) 32.2 Intake & Output: Intake and Output for Last 24 Hours 01/20/25 01/21/25 01/22/25 03:59 03:59 03:59 Intake Total 2241 / 2241 151 / 151 Output Total 1400 / 1400 200 / 200 Balance 841 / 841 -49 / -49 Lab / Micro Data 01/21/25 04:40 01/21/25 04:40 Labs: Laboratory Results - last 24 hr 01/21/25 04:40: WBC 12.1 H, RBC 3.51 L, Hgb 9.7 L, Hct 28.9 L, MCV 82.3, MCH 27.6, MCHC 33.6, RDW Std Deviation 39.8, RDW Coeff of Aleena 13.1, Plt Count 209, MPV 8.8, Sodium 135, Potassium 3.8, Chloride 103, Carbon Dioxide 22.5, Anion Gap10, BUN 11, Creatinine 0.69 L, Estim Creat Clear Calc 49.36 L, Est GFR (MDRD) Non-Af 86, BUN/Creatinine Ratio 16.5, Glucose 167 H, Calcium 7.8 Radiography Diagnostic Testing: Radiology Impression Hip X-Ray 01/20/25 15:10 IMPRESSION: Uncomplicated appearing right hip hemiarthroplasty. Left hip surgical and chronic changes. Reading [facility] 01/20/25 16:20 IMPRESSION: Uncomplicated appearing right hip hemiarthroplasty. Left hip chronic and surgical changes. Reading Location[facility] Exam Narrative General: Alert, Oriented x3, Cooperative, No apparent distress HEENT: Atraumatic, PERRLA, EOMI, Normocephalic Oral: Moist Mucosa Neck: Supple, No JVD Lungs: Diminished, Normal air movement, No rhonchi, No wheeze, No rales Cardiovascular: Regular rate, Regular Rhythm, Normal S1, Normal S2, No murmurs Abdomen: Soft, Non Tender, Non-Distended, No Hepato-splenomegaly Extremities: No edema, Capillary Refill Less than 3 Seconds Skin: No rashes, No breakdown, dressing CDI. Skin is bluegray due to colloidal silver Musculoskeletal: Tenderness to the right hip palpation Neurological: No focal neurological deficits, moves all extremities except rightlower extremity due to surgery Psych/Mental Status: Normal Affect, Appropriate Assessment & Plan Assessment/Plan (1) Closed hip fracture: QUALIFIERS: Encounter type: initial encounter Laterality: left Qualified Code(s): S72.002A - Fracture of unspecified part of neck of left femur,initial encounter for closed fracture (2) Metacarpal bone fracture: QUALIFIERS: Encounter type: initial encounter Metacarpal bone: unspecified metacarpal Fracture type: closed Metacarpal location: shaft Fracture alignment: nondisplaced Qualified Code(s): S62.359A - Nondisplaced fracture of shaft of unspecified metacarpal bone, initial encounter for closed fracture (3) COVID-19: PLAN: Plan # Impacted right intertrochanteric fracture of the femoral neck and metacarpal fracture right hand status post repair 01/20/2025 -After mechanical fall at [facility] -Ortho consulted -Patient n.p.o. -Pain control/supportive care -PT/OT postop 01/21/2025: PT/OT pending pre-CERT, she is weightbearing as tolerated and nonweightbearing on her wrist # Parkinson's disease - continue home Sinemet - supportive care #Hx of CAD -w/ previous chronically on aspirin and statin -Continue home medications # Elevated trop - Troponin of 27, 29, and then 28 - No chest pain, fall was mechanical, no significant elevations or concern for ongoing/active process # Recent COVID diagnosis - Supportive care -Reports symptoms started Thursday and she was diagnosed on Thursday, has no shortness of breath or cough or respiratory complaints - Patient saturating well on 2 L of nasal cannula # History of fibromyalgia - Continue Cymbalta DVT: Xarelto Charges/Coding Visit Charges Inpatient E&M: 20241 Subs Hosp L2 01/21/25942 <Electronically signed by Davian Kelly MD> Cosigner Signature (if applicable): CC: ~ Signed [facility] Work Phone: 1(521) 381-361110-11-2025 Progress note [facility] Medical Records Department [address] [place] [address] Progress Note - Hospitalist 01/21/25938 MR#: [id number] Acct: [id number] Name: MONISHA COHN Rep #:[id number] : 1940 84 From: Davian interiano MD PCP: Tressa Rosales Status:ADM IN Location: [facility] AD281-3 Subjective Subjective Doing well, no issues overnight. Pain is controlled Objective Data Objective Data Vital Signs: Vital Signs Temp Pulse Resp BP Pulse Ox O2 Del Method O2 Flow Rate 98.3 F 94 18 147/77 H 94 Room Air 2 01/21/25 09:02 01/21/25 09:02 01/21/25 09:02 01/21/25 09:02 01/21/25 09:02 01/21/25 09:02 01/21/25 06:57 Oxygen Flow Rate (L/min) 2 Oxygen Delivery Method Room Air Weight: 175 lb 3.2 oz Body Mass Index (BMI) 32.2 Intake & Output: Intake and Output for Last 24 Hours 01/20/25 01/21/25 01/22/25 03:59 03:59 03:59 Intake Total 2241 / 2241 151 / 151 Output Total 1400 / 1400 200 / 200 Balance 841 / 841 -49 / -49 Lab / Micro Data 01/21/25 04:40 01/21/25 04:40 Labs: Laboratory Results - last 24 hr 01/21/25 04:40: WBC 12.1 H, RBC 3.51 L, Hgb 9.7 L, Hct 28.9 L, MCV 82.3, MCH 27.6, MCHC 33.6, RDW Std Deviation 39.8, RDW Coeff of Aleena 13.1, Plt Count 209, MPV 8.8, Sodium 135, Potassium 3.8, Chloride 103, Carbon Dioxide 22.5, Anion Gap10, BUN 11, Creatinine 0.69 L, Estim Creat Clear Calc 49.36 L, Est GFR (MDRD) Non-Af 86, BUN/Creatinine Ratio 16.5, Glucose 167 H, Calcium 7.8 Radiography Diagnostic Testing: Radiology Impression Hip X-Ray 01/20/25 15:10 IMPRESSION: Uncomplicated appearing right hip hemiarthroplasty. Left hip surgical and chronic changes. Reading Location: [facility] Hip X-Ray 01/20/25 16:20 IMPRESSION: Uncomplicated appearing right hip hemiarthroplasty. Left hip chronic and surgical changes. Reading Location: [facility] Physical Exam Narrative General: Alert, Oriented x3, Cooperative, No apparent distress HEENT: Atraumatic, PERRLA, EOMI, Normocephalic Oral: Moist Mucosa Neck: Supple, No JVD Lungs: Diminished, Normal air movement, No rhonchi, No wheeze, No rales Cardiovascular: Regular rate, Regular Rhythm, Normal S1, Normal S2, No murmurs Abdomen: Soft, Non Tender, Non-Distended, No Hepato-splenomegaly Extremities: No edema, Capillary Refill Less than 3 Seconds Skin: No rashes, No breakdown, dressing CDI. Skin is bluegray due to colloidal silver Musculoskeletal: Tenderness to the right hip palpation Neurological: No focal neurological deficits, moves all extremities except rightlower extremity dueto surgery Psych/Mental Status: Normal Affect, Appropriate Assessment & Plan Assessment/Plan (1) Closed hip fracture: QUALIFIERS: Encounter type: initial encounter Laterality: left Qualified Code(s): S72.002A - Fracture of unspecified part of neck of left femur,initial encounter for closed fracture (2) Metacarpal bone fracture: QUALIFIERS: Encounter type: initial encounter Metacarpal bone: unspecified metacarpal Fracture type: closed Metacarpal location: shaft Fracture alignment: nondisplaced Qualified Code(s): S62.359A - Nondisplaced fracture of shaft of unspecified metacarpal bone, initial encounter for closed fracture (3) COVID-19: PLAN: Plan # Impacted right intertrochanteric fracture of the femoral neck and metacarpal fracture right hand status post repair 01/20/2025 -After mechanical fall at [facility] -Ortho consulted -Patient n.p.o. -Pain control/supportive care -PT/OT postop 01/21/2025: PT/OT pending pre-CERT, she is weightbearing as tolerated and nonweightbearing on her wrist # Parkinson's disease - continue home Sinemet - supportive care #Hx of CAD -w/ previous chronically on aspirin and statin -Continue home medications # Elevated trop - Troponin of 27, 29, and then 28 - No chest pain, fall was mechanical, no significant elevations or concern for ongoing/active process # Recent COVID diagnosis - Supportive care -Reports symptoms started Thursday and she was diagnosed on Thursday, has no shortness of breath or cough or respiratory complaints - Patient saturating well on 2 L of nasal cannula # History of fibromyalgia - Continue Cymbalta DVT: Xarelto Charges/Coding Visit Charges Inpatient E&M: 96809 Subs Hosp L2 01/21/25 0943 Cosigner Signature (if applicable): CC: ~ Signed [facility]10-10-2025 Consult note Author Brennen Rojas [facility] Note Date/Time January 20, 2025 5 :17pm [facility] Medical Records Department [address] [place] [address] Anesthesia Postop Eval I 01/20/25 1715 MR#: [id number] Acct: [id number] Name: MONISHA COHN Rep #:[id number] : 1940 84 From: Brennen Rojas CRNA PCP: Tressa Rosales Status:ADM IN Y Race: C Location: [place] [address] Anesthesia: Postop Eval I Current Vital Signs Temperature: 97.1 F Pulse Rate: 86 Blood Pressure: 142/56 Respiratory Rate: 16 Pulse Ox: 90 Oxygen Delivery Method: Room Air Assessment Airway patent: Yes Spontaneous unlabored respirations: Yes Mental status: Awake and Calm nausea: No Vomiting: No Anesthesia Complication: No Fluid Hydration Crystalloid volume administer (ml): 600 Total IV fluid infused: 600 Progress Note Post-operative progress note: Assessment time:1618 Anesthesia document: Postop Eval 1 completed: Yes 01/20/251716 <Electronically signed by Brennen paz RECOVERY COLLECTOR> Date _ Brennen Rojas RECOVERY COLLECTOR Cosigner Signature: Date CC: ~ Signed [facility] Work Phone: 1(529) 513-160810-10-2025 Consult note Author Jareth Shepard [facility] Note Date/Time January 25, 2025 1 :00pm [facility] Medical Records Department [address] [place] [address] Anesthesia Postop Eval II 01/20/251705 MR#: [id number] Acct: [id number] Name: MONISHA COHN Rep #:[id number] : 1940 84 From: Jareth Shepard MD PCP: Tressa Rosales Status:ADM IN Y Race: C Location: [facility] MS309 -1 Anesthesia Postop Eval I Sum Anesthesia Postop Eval I Summary Anesthesia Postop Eval I Summary: Anesthesia Postop Eval I: Assessment Summary Airway patent Spontaneous unlabored respirations Mental status nausea Vomiting Anesthesia Postop Eval I: Fluid Summary Crystalloid volume administer (ml) Colloids volume administered ( ml) Blood Product volume administered (ml) Total IV fluid infused Anesthesia Postop Eval I: Summary Notes Anesthesia Complication Anesthesia Complication Comment: Post-operative progress note Anesthesia: Postop Eval II Evaluation Mental status: Awake and Calm Pain Level: 1 nausea: No Vomiting: No Complications Anesthesia Complication: No 01/20/251705 <Electronically signed by Jareth zavala MD> Date _ Jareth Elliott Signature: Date CC: ~ Signed [facility] Work Phone: [phone]) 622-281610-10-2025 Procedure note [facility] Medical Records Department [address] [facility] [place] [address] Operative Report 01/20/25 1545 MR#: [id number] Acct: [id number] Name: MONISHA COHN Rep #:[id number] : 1940 84 From: Braulio Fontana PCP: Tressa Rosales Status:ADM IN [id number] Operative Report (Standard) Operative Information Date of Procedure: 01/20/25 Pre-Operative Diagnosis: Right hip subcapital femoral neck fracture Post-Operative Diagnosis: Right hip subcapital femoral neck fracture Surgery/Procedure Performed: Right hip endoprosthesis helmet hat puncher: Yes Stain Remover: Edyta Bhatti Tasks completed by life enrichment assistant: Opening, Closing, Implanting device and Retracting Additional accounts receivable assistant?: No Type of Anesthesia: General RN Documented Start/Stop Times: Operation Date: 01/20/25 14:15 Case Time Into Pre-Op 01/20/25 12:50 Anesthesia Start 01/20/25 14:25 Into Room 01/20/25 14:25 Procedure Start 01/20/25 14:48 Procedure End 01/20/25 15:54 Anesthesia End 01/20/25 16:11 Out of Room 01/20/25 16:11 Into Recovery 01/20/25 16:15 Out of Recovery 01/20/25 17:06 Procedure Start Time: 14:48 Procedure Stop Time: 15:54 Select all DRAINS/GRAFTS/IMPLANTS that apply: Prosthetic device Prosthetic device details: See bodyof operative report Special Medications: 2 g Ancef, 2 g TXA's lavage and end of case Estimated Blood Loss: 350 Fluids Replaced: 600 mL crystalloid Specimen collected: Yes Description of specimen(s) removed: Femoral head fracture sent to specimen Description of surgery: Components used: 1. Yumiko insignia femoral stem size 4 high offset 2. Yumiko Unitrax cobalt-chromium 43 mm femoral head with -4 mm sleeve Procedure: On the date of procedure the patient's R hip was marked in the preoperative area. Patient was then taken back to the operating room where anesthesia assumed control of the C-spine and airway and administered anesthetic. Patient was transferred to the operating table and placed in the supine position. The hips were placed the break of the bed and a bump was placed in the sacrum. The R lower extremity was then prepped out in a sterile fashion using chlorhexidine while the surgeon scrubbed. Upon reentering the room the R lower extremity was draped in the standard orthopedic fashion and the incision was marked. A timeout was called and everyone agreed upon the side, the site, the procedure be performed, antibody given, and patient's identity. At this time incision was made through skin, subcutaneous tissue, and fat down to fascia. The fascia was then incised and the TFL was retractedlaterally. A retractor was placed on the lateral border of the femoral neck. Attention was directedto the inferior portion of the approach and all crossing vessels were identified and appropriately coagulated. A retractor was then placed on the medial portion of the femoral neck. The anterior capsule was then cleared of all soft tissue and then H shaped capsulotomy was made. The retractors were then placed inside the capsule. The femoral neck was identified and a cleanup cut was made. At this time a power corkscrew was used to remove the femoral head. The femoral head was measures and a 43 mm unipolar component was selected. Soft tissue releases on the medial and lateral femoral neck were appropriately done, the leg was externally rotated and lateralized. A [place] retractor was placed medially and proximally to the greater trochanter this allowed appropriate visualization and exposure of the femoral canal. Rongeour was then used to remove excess lateral bone. A canal finder and entry broach were used to open the proximal canal. Once we verified we were down the femoral canal we subsequently broached up to a size 4femur. The appropriate neck was placed in the previously selected head was trialed with a -4mm neck. Traction was pulled and the hip was reduced with internal rotation. Once it was appropriately reduc ed and stability was checked. There was minimal shuck, equal leg lengths and appropriate stability with hyperextension and external rotation as well as with 90? flexion and internal rotation. The trial components were then dislocated the proximal femur was again exposed and the components were removed from the wound. The final components were verified and opened. The wound was copiously irrigated out with normal saline. The acetabulum was checked for any residual debris. The final components were placed and impacted. Traction and internal rotation were again used to reduce the hip. After adequate reduction the hip remained stable with appropriate leg lengths. The wound was then copiously irrigated with normal saline once more, and hemostasis was obtained. Closure was then done using #1 Vicryl runner to close the fascia. A 2-0 Vicryl runner was used to close the subcutaneous skin. 2-0 nylon's were used for finalskin closure. A Silverlon dressing was placed. Patient was awakened by anesthesia and transferred to the [facility]. Patient was then transferredto the PACU for recovery. Postoperative plan: Patient will get 24 hours postop antibiotics. Patient will get in-house physical therapy and will be weight-bear as tolerated. Patient will follow up in office in 2 weeks for a wound check and x-rays. Xarelto 10 mg daily for 2 weeks followed by aspirin 81 mg twice daily for 2 weeks. Patient has impaired mobility. Surgical Findings: Stable hip. Restored leg length Complications Complications: No Admit VTE Documentation VTE Present on Admission: No VTE Mechan Device Prophylaxis: SCD's and Thigh High BELEN Hose VTE Pharm Prophylaxis ordered?: Yes 01/20/25 1831 Cosigner Signature (if applicable): CC: Dr. Stephan Martel, DO; Dr. Brauilo Tijerina MD; Tressa Rosales~ Signed [facility]10-10-2025 Consult note [facility] Medical Records Department [address] [place] [address] Anesthesia Postop Eval I 01/20/25 1715 MR#: [id number] Acct: [id number] Name: MONISHA COHN Rep #:[id number] : 1940 84 From: Brennen Rojas CRNA PCP: Tressa Rosales Status:ADM IN Y Race: C Location: [facility] MS309 -1 Anesthesia: Postop Eval I Current Vital Signs Temperature: 97.1 F Pulse Rate: 86 Blood Pressure: 142/56 Respiratory Rate: 16 Pulse Ox: 90 Oxygen Delivery Method: Room Air Assessment Airway patent: Yes Spontaneous unlabored respirations: Yes Mental status: Awake and Calm nausea: No Vomiting: No Anesthesia Complication: No Fluid Hydration Crystalloid volume administer (ml): 600 Total IV fluid infused: 600 Progress Note Post-operative progress note: Assessment time:1618 Anesthesia document: Postop Eval 1 completed: Yes 01/20/25 1717 an RECOVERY COLLECTOR> Date _ Brennen Rojas RECOVERY COLLECTOR Cosigner Signature: Date CC: ~ Signed [facility]10-10-2025 Radiology Diagnostic study note [facility] Imaging Services [address] [place] [address] [id number] Hip Min 2 Views (Portable) MR#: [id number] Acct: [id number] Name: MONISHA COHN Rep #: [id number] : 1940 F 84 From: Christine Gillette MD PCP: Tressa Rosales Status: ADM IN Study:Hip Min 2 Views (Portable) Date of Exam : 01/20/25 Exam# [id number] Ordering Dr: Rachele Tijerina MD PROCEDURE: HIP MIN 2 VIEWS (PORTABLE) 01/20/2025 REASON FOR EXAM: POST OP TECHNIQUE: Procedure Code: RADH_P Modality: DX Procedure: HIP MIN 2 VIEWS (PORTABLE) Laterality: FINDINGS: Right hip hemiarthroplasty appears well-positioned without complication. Left femoral nail with screws. Severe bony hypertrophic changes extending from the lesser trochanteric region to the femoral head. Hypertrophic and possibly posttraumatic changes of the greater trochanter. RAD/Hip Min 2 Views (Portable) IMPRESSION: Uncomplicated appearing right hip hemiarthroplasty. Left hip chronic and surgical changes. Reading Location: [facility] CC: Dr. Braulio Tijerina MD; Tressa Rosales ~ Learning Developer: Signed [facility]10-10-2025 Consult note Author Braulio Tijerina [facility] Note Date/Time January 20, 2025 2 :24pm [facility] Medical Records Department [address] [place] [address] Consultation - Orthopedics 01/20/25 1415 MR#: [id number] Acct: [id number] Name: MONISHA COHN Rep #:[id number] : 1940 84 From: Braulio Fontana PCP: Tressa Rosales Status:ADM IN Location: [facility] JA679-4 HPI Consult Data Date of Consult: 01/20/25 HPI Narrative Reason for Consultation: Right hand pain, right hip pain HPI Narrative: MONISHA COHN, is a 84 F with multiple medical comorbidities and ongoing COVID-19 with treatment that is current who presents with right hip pain. Patient is known to our practice she did have a left hip fracture with cephalomedullary nail 2 years ago with my partner. Patient notes that she lives in a prison facility and ambulates with a walker or uses a wheelchair. She does notwalk independently. She was reported to have fallen yesterday and sustained an injury to her right hand and hip. She was seen at an outside hospital and requested transfer to [place] as they did not have orthopedics. She was placed in a ulnar gutter splint for her right hand pain and right hip pain. Patient today reports 6 out of 10 pain in the right thigh and groin region worse with motion better with immobilization. Patient denies any new associated paresthesias. Patient is unable to walk at this time due to the pain. Patient denies history of blood clots. Patient denies any current treatment or active malignancies. [facility] Medical History Nocturia Urge incontinence Overactive bladder Former tobacco use Depression Hypertension Fall [facility] (closed head injury) Presence of stent in coronary artery (~12/22/21) Atherosclerotic heart disease of [place] coronary artery without angina pectoris ST elevation myocardial infarction (STEMI) of inferior wall (~12/22/21) Essential (primary) hypertension Parkinsons disease Urgency of urination Gout Cardiogenic shock Non-rheumatic mitral regurgitation Non-rheumatic tricuspid valve insufficiency Pulmonary hypertension Emphysema with chronic bronchitis Fibromyalgia Hyperlipidemia CAD (coronary artery disease) Bladder spasms Edema, lower extremity Myocardial infarction Home Medications ?Medication ?Instructions ?Recorded ?Last Taken ?Type aspirin 81 mg tablet,delayed 81 mg PO DAILY blood thin ner 02/25/22 05/01/23 History release (Adult Aspirin Regimen) acetaminophen 325 mg capsule 650 mg PO Q6H PRN fever o r pain 05/01/23 04/29/23 History atorvastatin 40 mg tablet 40 mg PO QHS hld 05/01/23 History polyethylene glycol 3350 17 17 g PO DAILY 05/01/23 History gram/dose oral powder (ClearLax) psyllium husk 3.4 gram/5.4 gram 1 tbsp PO DAILY 04/30/23 History oral powder (Stacie-Mucil) alendronate 70 mg tablet 70 mg PO QWEEK osteoporosis 09/27/24 Unknown History carbidopa 25 mg-levodopa 100 mg 2 tab PO DAILY kelsey on 09/27/24 Unknown History tablet celecoxib 200 mg capsule 200 mg PO QDAY 09/27/24 Unkn own History duloxetine 20 mg capsule,delayed 20 mg PO QDAY 5 Unknown History release tramadol 50 mg tablet 50 mg PO TID PRN pain Unknown History guaifenesin 100 mg/5 mL oral liquid 200 mg PO Q4H PRN cough 12/28/24 Unknown History melatonin 3 mg capsule 3 mg PO HS PRN sleep 5 Unknown History simethicone 125 mg chewable tablet 125 mg PO QD-BID ND N abdominal 12/28/24 Unknown History (Mylanta Gas) distention ascorbic acid (vitamin C) 500 mg 500 mg PO DAILY suppl ement 01/20/25 Unknown History capsule carbidopa 25 mg-levodopa 100 mg 1.5 tab PO TID kelsey on 01/20/25 Unknown History tablet (Dhivy) cholecalciferol (vitamin D3) 50 50 mcg PO DAILY supple ment 01/20/25 Unknown History mcg (2,000 unit) capsule cyanocobalamin (vitamin B-12) 5,000 mcg PO DAILY suppl ement 01/20/25 Unknown History 5,000 mcg capsule mirabegron 50 mg tablet,extended 50 mg PO DAILY bladde r 01/20/25 Unknown History release 24 hr (Myrbetriq) nirmatrelvir 300 mg (150 mg See Rx Instructions PO .CO MPLEX 01/20/25 Unknown History x2)-ritonavir 100 mg tablet,dose pack (Paxlovid) Allergy/AdvReac Type Severity Reaction Status Date / Time oxycodone (From Percocet) Allergy Severe Hives Verified 01/20/25 01:40 Family History Father Heart disease Surgical History S/P appendectomy History of hysterectomy History of ankle surgery Presence of coronary angioplasty implant and graft Social History household members: friend(s) Smoking Status: Former smoker pack-years: 30 Tobacco: How many years used: 30 how long ago did patient quit smoking: Quit 20+ years prior. alcohol intake: current alcohol intake frequency: holidays/special occasions only substance use type: does not use caffeine: Yes Type: coffee Number of servings: 2 ROS ROS Narrative Outside of HPI 14 point review of systems was negative today Vital Signs Vital Signs Vital Signs: 01/20/25 01:30 01/20/25 01:40 01/20/25 02:27 Temperature 98.1 F Temperature Source Oral Pulse Rate 100 98 Pulse Strength Respiratory Rate 18 Respiratory Effort Normal Non-Labored Respiratory Depth Normal Respiratory Pattern Normal Blood Pressure 150/75 H Blood Pressure Mean 100 Blood Pressure Source Monitor Blood Pressure Position Semi-Fowlers Blood Pressure Location Left Forearm Pulse Ox 97 Oxygen Delivery Method Nasal Cannula Nasal Cannula Oxygen Flow Rate (L/min) 2 2 01/20/25 05:10 01/20/25 07:10 01/20/25 07:50 Temperature 98.4 F 98.2 F Temperature Source Oral Oral Pulse Rate 103 H 92 Pulse Strength Respiratory Rate 18 16 Respiratory Effort Respiratory Depth Respiratory Pattern Blood Pressure 143/53 H 142/73 H Blood Pressure Mean 83 96 Blood Pressure Source Monitor Blood Pressure Position Semi-Fowlers Blood Pressure Location Left Forearm Pulse Ox 99 99 Oxygen Delivery Method Nasal Cannula Nasal Cannula Nasal Cannula Oxygen Flow Rate (L/min) 2 2 2 01/20/25 09:57 01/20/25 10:00 01/20/25 10:58 Temperature 98.2 F Temperature Source Oral Pulse Rate 92 Pulse Strength Normal (2+) Respiratory Rate 16 Respiratory Effort Normal Non-Labored Respiratory Depth Respiratory Pattern Blood Pressure 142/73 H Blood Pressure Mean 96 Blood Pressure Source Monitor Blood Pressure Position Semi-Fowlers Blood Pressure Location Right Arm Pulse Ox 99 Oxygen Delivery Method Nasal Cannula Nasal Cannula Oxygen Flow Rate (L/min) 2 2 01/20/25 11:58 01/20/25 14:03 Temperature 98.2 F 98.2 F Temperature Source Oral Pulse Rate 92 92 Pulse Strength Respiratory Rate 16 16 Respiratory Effort Respiratory Depth Respiratory Pattern Blood Pressure 142/73 H 142/73 H Blood Pressure Mean 96 Blood Pressure Source Monitor Blood Pressure Position Semi-Fowlers Blood Pressure Location Right Arm Pulse Ox 99 99 Oxygen Delivery Method Nasal Cannula Nasal Cannula Oxygen Flow Rate (L/min) 2 2 Weight Weight: 165 lb 5.547 oz Body Mass Index (BMI) 30.4 Physical Exam Const alert, oriented x3 and well nourished General Appearance: cooperative HEENT normocephalic and head/scalp atraumatic Eyes PERRL Neck no JVD Resp normal respiratory effort Cardio Cardio Narrative: Regular pulse rate distal pulse GI GI Narrative: Nondistended Extremity Extremity Narrative: Right lower extremity: Skin clean, dry, and intact. Limb is shortened and externally rotated Motor is intact dorsiflexion, EHL and plantar flexion. Sensation is intact to light touch saphenous, iris,l superficial peroneal, deep peroneal and tibial distributions. Calves are soft and supple. Right hand: Hand is in an ulnar gutter splint. Tenderness palpation over the fourth metacarpal base upon palpation. Digits are warm and pink. Splint appears to fit well. Skin Skin Narrative: Skin on the right thigh is intact Neuro CN's II-XII intact bilaterally Psych affect normal Medical Records Data Attestation: I reviewed the patient's medical records Lab / Micro Data Attestation: I reviewed the patient's lab results. 01/20/25 02:05 01/20/25 02:05 Labs: Laboratory Results - last 24 hr 01/20/25 02:05: WBC 8.5, RBC 4.07 L, Hgb 11.1 L, Hct 34.5 L, MCV 84.8, MCH 27.3,MCHC 32.2, RDW Std Deviation 40.1, RDW Coeff of Aleena 13.1, Plt Count 241, MPV 8.8, Immature Gran % (Auto) 0.400, Neut % (Auto) 81.1 H, Lymph % (Auto) 11.1 L, Villalba % (Auto) 7.2, Eos % (Auto) 0.1, Baso % (Auto) 0.1, Absolute Neuts (auto) 6.9, Absolute Lymphs (auto) 0.94, Nucleated RBC % 0, Sodium 134, Potassium 3.5, Chloride 100, Carbon Dioxide 21.8, Anion Gap 12, BUN 13, Creatinine 0.65 L, Estim Creat Clear Calc 50.52, Est GFR (MDRD) Non-Af 87, BUN/Creatinine Ratio 19.9, Glucose 98, Calcium 8.2, Phosphorus 2.4 L, Total Bilirubin 0.63, AST 19, ALT < 5, Alkaline Phosphatase 51, Troponin T High Sens 27 H, Total Protein 6.3, Albumin 3.6, Globulin 2.7, Albumin/Globulin Ratio 1.4, Vitamin B12 1234 H, SerumFolate 6.23, TSH 1.900, Blood Type B POSITIVE, Antibody Screen NEGATIVE 01/20/25 04:10: Urine Color Yellow, Urine Clarity Sl. Cloudy, Urine pH 6.5, Ur Specific [place] 1.010, Urine Protein 15 H, Urine Glucose (UA) Normal, Urine Ketones 15 H, Urine Occult Blood 10 H, Urine Nitrite Negative, Urine Bilirubin Negative, Urine Urobilinogen Normal, Ur Leukocyte Esterase Negative, Urine RBC 0SEEN, Urine WBC 0 SEEN, Ur Squamous Epith Cells 0 SEEN, Urine Bacteria 0 SEEN, Urine Mucus 0 SEEN 01/20/25 04:18: Troponin T Hi Sens 2 Hr 29 H 01/20/25 06:10: Troponin T Hi Sens 4Hr 28 H Imaging Outside right hand x-rays were reviewed patient does have a nondisplaced fracture at the base of the fourth metacarpal. Patient has osteopenic appearingbone. Patient's AP pelvis and right hip x-rays reveal a valgus displaced subcapital femoral neck fracture on the right hip. Previous left hip cephalomedullary nail with well- healed intertrochanteric fracture. Assessment & Plan Assessment/Plan (1) Subcapital fracture of right femur: PLAN: Natural history of the disease process and treatment options were discussed with the patient as well as her family member who is at bedside. Ultimately, we discussed nonoperative treatment as well as 3 available operativetreatment options. I did not recommend nonoperative treatment. Did not recommend percutaneous pinning. I do not recommend total hip replacement. I did recommend a partial replacement which I felt would be the most appropriate treatment based on patient's age and medical morbidities. Risks and benefits ofthe procedure were discussed with patient including but not limited to blood loss, DVTs, PEs, neurovascular damage, infection, and risk of anesthesia including loss of life. This also includes dislocations, leg discrepancies intraoperative and postoperative fractures. Once patient was satisfied with ourdiscussion she demonstrated agreement to proceed with surgery. We both agreed on the appropriate side and the right side was marked in the preoperative area. Antibiotics on-call to the operating room. Patient is NPO. Patient has received adequate clearance from surgery at this point and we will plan to proceed with surgery supplement. (2) Nondisplaced fracture of base of fourth metacarpal bone, right hand, initialencounter for closed fracture: PLAN: Natural history of the disease process and treatment options were discussed the patient. Ultimately, patient is in a appropriate ulnar gutter splint and I felt appropriate to leave her in at this time. Will proceed with nonweightbearing to the hand. Should patient will be able to bear weight with aplatform on a walker through her elbow. 01/20/25 1424 <Electronically signed by Braulio Tijerina MD> Cosigner Signature (if applicable): CC: Tressa Rosales~ Signed [facility] Work Phone: [phone]) 426-948710-10-2025 Radiology Diagnostic study note [facility] Imaging Services [address], [place] [address] Hip Min 2 Views (Portable) MR#: [id number] Acct: [id number] Name: MONISHA COHN Rep #: [id number] : 1940 F 84 From: Christine Gillette MD PCP: Tressa Rosales Status: ADM IN Study:Hip Min 2 Views (Portable) Date of Exam : 01/20/25 Exam# [id number] Ordering Dr: Rachele Tijerina MD PROCEDURE: HIP MIN 2 VIEWS (PORTABLE) 01/20/2025 REASON FOR EXAM: MALLIKA HIP TECHNIQUE: Procedure Code: RADH_P Modality: DX Procedure: HIP MIN 2 VIEWS (PORTABLE) Laterality: FINDINGS: Multiple spot fluoroscopic images of right hip procedure reveal screw in the left femoral head and incompletely assessed left hip with osseous hypertrophic changes about the proximal left femur. Right hip hemiarthroplasty was performed, with uncomplicated appearance on the final view. No other abnormality. RAD/Hip Min 2 Views (Portable) IMPRESSION: Uncomplicated appearing right hip hemiarthroplasty. Left hip surgical and chronic changes. Reading Location[facility] CC: Dr. Braulio Tijerina MD; Tressa Rosales ~ Learning Developer: Signed [facility]10-10-2025 Consult note Author Jareth [facility] Note Date/Time January 20, 2025 2 :03pm [facility] Medical Records Department [address] [place] [id number] Pre-Anesthesia Evaluation 01/20/25 1342 MR#: [id number] Acct: [id number] Name: MONISHA COHN Rep #:[id number] : 1940 84 From: Jareth Shepard MD PCP: Tressa Rosales Status:ADM IN Y Race: C Location: [place] [address] -1 ASA Classification* ASA Classification ASA Classification: 4 Assessment & Plan Anesthesia* Anesthesia Assessment Anesthesia Assessment: Discussed sedation and/or anesthesia options, risks, benefits, and alternatives with patient/parents/legal guardian/POA. Questions invited. The patient/parents/legal guardian/POA seems to understand and agrees to proceedwith anesthesia plan. Reviewed the physical assessment, medical history, allergy history and patient home medications list prior to surgery/procedure/anesthetic and documented any changes. Performed airway and anesthesia risk assessments. Anesthesia Type Anesthesia Type: General History Source History Obtained from:: Patient and Chart Anesthesia Focused Assessment* Temperature: 98.2 F Pulse Rate: 92 Blood Pressure: 142/73 Respiratory Rate: 16 Pulse Ox: 99 Oxygen Delivery Method: Nasal Cannula Oxygen Flow Rate (L/min): 2 Airway Assessment Mouth opens: >3 cm Mallampati Score: III Teeth Condition: Dentures (Upper dentures are out.) and Missing (Patient is missing most of her molars on the bottom. Front incisors are tight.) Neck Range of motion (ROM): Limited ROM (Severe Restriction) Labs Anesthesia Preop lab: CBC WBC, (4.4-11.0) 8.5 K/mm3 Today, 02:05 RBC, (4.2-5.4) 4.07 M/mm3 L Today, 02:05 Hgb, (12.0-15.0) 11.1 g/dL L Today, 02:05 Hct, (37-47) 34.5 % L Today, 02:05 Plt Count, (150-450) 241 K/mm3 Today, 02:05 CHEMISTRY Potassium, (3.3-5.1) 3.5 mmol/L Today, 02:05 Sodium, (133-145) 134 mmol/L Today, 02:05 Phosphorus, (2.7-4.5) 2.4 mg/dL L Today, 02:05 BUN, (4-19) 13 mg/dL Today, 02:05 Creatinine, (0.70-1.20) 0.65 mg/dL L Today, 02:05 Glucose, (70-99) 98 mg/dL Today, 02:05 POC Glucose, (74-106) 99 mg/dL 02/01/23, 14:26 TSH, (0.300-4.200) 1.900 uIU/mL Today, 02:05 COAG PT, (11.7-14.9) 16.1 SECONDS H 05/01/23, 14:15 Pre-Assessment Diagnosis/Proposed Procedure Planned Operative Procedure(s): Right hip hemiarthroplasty Anesthesia History Anesthesia History - pediatric oncology nurse: Anesthesia History - pediatric oncology nurse Hx Hospitalization Any Problems With Anesthesia No 01/20/25 01:31 Cholinesterase deficiency No 01/20/25 01:31 You/Your Family Experience No 01/20/25 01:31 fever (hyperthermia) with Relationship Recent Exposure to Contagious Yes: covid 01/20/25 01:31 Disease Does patient have nerve No 01/20/25 01:31 stimulator Patient instructed to have na 01/20/25 01:31 device shut off --Does patient have Pacemaker No 01/20/25 11:58 or ICD? When Was Last Pacemaker Check QUESTION #4 FULL TEXT: You/Your Family Experience fever (hyperthermia) with Anesthesia Last Oral Intake Last Oral intake: Last Oral Intake NPO since 00:00 01/20/25 11:58 Meds taken in AM with sips of Yes 01/20/25 11:58 water? Meds patient instructed to Carbidopa/levadopa 01/20/25 11:58 take am of surgery PONV PONV - pediatric oncology nurse: PONV - pediatric oncology nurse Female HX of Motion Sickness HX of N/V After Surgery Non-Smoker Duration of Surgery greater than 60 minutes Number of Risk Factors PONV Score Height & Weight Height & Weight: Anesthesia: Height & Weight Height 5 ft 1.81 in 01/20/25 11:58 Weight: 75 kg 01/20/25 11:58 Body Mass Index (BMI) 30.4 01/20/25 11:58 Respiratory Assessment Respiratory Assessment - pediatric oncology nurse: Respiratory Tract Infection Hx - pediatric oncology nurse Hx Respiratory Tract Infection Yes: covid 01/20/25 01:31 Any additional information?: Yes Hx Respiratory Tract Infection: Yes History of Anesthesia Respiratory Infection details: Patient started having symptoms of COVID 4 days ago. Symptoms included headache and greenish sputum. No significant shortness of breath. She broke her hip yesterday and only started wearing oxygen after being admitted to the hospital. STOP Sleep Apnea STOP Sleep Apnea - pediatric oncology nurse: STOP Sleep Apnea - pediatric oncology nurse Hx Hypertension Yes 01/20/25 01:18 Hx Sleep Apnea No 01/20/25 01:18 CPAP BIPAP Do you snore loudly (louder No 01/20/25 01:18 than talking or can be heard Do you often feel tired/ No 01/20/25 01:18 fatigued/ sleepy during daytime? Has anyone observed you stop No 01/20/25 01:18 breathing during sleep? STOP Results Negative 01/20/25 01:18 QUESTION #5 FULL TEXT : Do you snore loudly (louder than talking or can be heard through closed doors)? 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 Specify any problems Hx of Preganancy in last 3 No 01/20/25 01:18 Months Nurse Filling Out Transfusion DREDICK 01/20/25 01:18 & Questions: Date: 01/20/25 01/20/25 01:18 Time: 01:19 01/20/25 01:18 Patient unable to answer at this time (ie. confused, unrespo /Reproduction History /Reproductive History - pediatric oncology nurse: /Reproductive Hx- pediatric oncology nurse Hx Now No 01/20/25 01:31 Gestational Age (in weeks): EDC: Hx Hx Para Hx Section SAB No 01/20/25 01:31 Active Medications Active Medications: Current Medications Generic Name Dose Route Start Last Admin Trade Name Freq PRN Reason Stop Dose Admin Acetaminophen 650 mg 01/20/25 01:06 Acetaminophen 650 Mg Suppository RC Q6H PRN PRN Pain 1-5/10 or Fever Aspirin 81 mg 01/21/25 08:00 Aspirin E.C. 81 Mg Tablet PO BREAKFAST MARTY Atorvastatin Calcium 40 mg 01/20/25 22:00 Atorvastatin Calcium 40 Mg Tablet PO QHS MARTY Carbidopa/Levodopa 2 tablet 01/20/25 10:00 01/20/25 10:16 Carbidopa/Levodopa 25/100 Tablet PO 2 tablet DAILY MARTY Administration Carbidopa/Levodopa 1.5 tablet 01/20/25 14:00 Carbidopa/Levodopa 25/100 Tablet PO 1400,1800,2200 MARTY Duloxetine HCl 20 mg 01/20/25 10:00 Duloxetine Hcl 20 Mg Capsule PO DAILY MARTY Hydralazine HCl 5 mg 01/20/25 01:37 Hydralazine 20 Mg/Ml Vial IV Q8H PRN PRN SBP GREATER THAN 160 Protocol Sodium Chloride 250 mls @ 15 mls/hr 01/20/25 01:13 IV .[id number] PRN Saline Flush Sodium Chloride 250 mls @ 15 mls/hr 01/20/25 01:13 IV .[id number] PRN Additional IVPB Infusion Lactated Ringer's 1,000 mls @ 15 mls/hr 01/20/25 13:00 01/20/25 13:06 IV 15 mls/hr .Q48H MARTY Administration Morphine Sulfate 2 mg 01/20/25 01:06 01/20/25 09:21 Morphine 2 Mg/Ml Syringe IV 2 mg Q4H PRN PRN Administration Pain Score 6-10 Ondansetron HCl 4 mg 01/20/25 01:06 Ondansetron 4 Mg/2 Ml Vial IV Q6H PRN PRN NAUSEA/VOMITING Polyethylene Glycol 17 gm 01/20/25 10:00 Polyethylene Glycol 3350 17 Gm Packet PO DAILY MARTY Psyllium Hydrophilic Mucilloid 1 packet 01/20/25 10:00 Psyllium 1 Packet PO DAILY MARTY Sodium Chloride 10 - 40 ml 01/20/25 01:13 01/20/25 09:21 0.9% Saline Lock 10 Ml Syringe IV 10 ml UD PRN Administration SALINE FLUSH PFSH Medical History Nocturia Urge incontinence Overactive bladder Former tobacco use Depression Hypertension Fall CHI (closed head injury) Presence of stent in coronary artery (~12/22/21) Atherosclerotic heart disease of [place] coronary artery without angina pectoris ST elevation myocardial infarction (STEMI) of inferior wall (~12/22/21) Essential (primary) hypertension Parkinsons disease Urgency of urination Gout Cardiogenic shock Non-rheumatic mitral regurgitation Non-rheumatic tricuspid valve insufficiency Pulmonary hypertension Emphysema with chronic bronchitis Fibromyalgia Hyperlipidemia CAD (coronary artery disease) Bladder spasms Edema, lower extremity Myocardial infarction Home Medications ?Medication ?Instructions ?Recorded ?Last Taken ?Type aspirin 81 mg tablet,delayed 81 mg PO DAILY blood thin ner 02/25/22 05/01/23 History release (Adult Aspirin Regimen) acetaminophen 325 mg capsule 650 mg PO Q6H PRN fever o r pain 05/01/23 04/29/23 History atorvastatin 40 mg tablet 40 mg PO QHS hld 05/01/23 History polyethylene glycol 3350 17 17 g PO DAILY 05/01/23 History gram/dose oral powder (ClearLax) psyllium husk 3.4 gram/5.4 gram 1 tbsp PO DAILY 04/30/23 History oral powder (Stacie-Mucil) alendronate 70 mg tablet 70 mg PO QWEEK osteoporosis 09/27/24 Unknown History carbidopa 25 mg-levodopa 100 mg 2 tab PO DAILY kelsey on 09/27/24 Unknown History tablet celecoxib 200 mg capsule 200 mg PO QDAY 09/27/24 Unkn own History duloxetine 20 mg capsule,delayed 20 mg PO QDAY 5 Unknown History release tramadol 50 mg tablet 50 mg PO TID PRN pain Unknown History guaifenesin 100 mg/5 mL oral liquid 200 mg PO Q4H PRN cough 12/28/24 Unknown History melatonin 3 mg capsule 3 mg PO HS PRN sleep 5 Unknown History simethicone 125 mg chewable tablet 125 mg PO QD-BID ND N abdominal 12/28/24 Unknown History (Mylanta Gas) distention ascorbic acid (vitamin C) 500 mg 500 mg PO DAILY suppl ement 01/20/25 Unknown History capsule carbidopa 25 mg-levodopa 100 mg 1.5 tab PO TID kelsey on 01/20/25 Unknown History tablet (Dhivy) cholecalciferol (vitamin D3) 50 50 mcg PO DAILY supple ment 01/20/25 Unknown History mcg (2,000 unit) capsule cyanocobalamin (vitamin B-12) 5,000 mcg PO DAILY suppl ement 01/20/25 Unknown History 5,000 mcg capsule mirabegron 50 mg tablet,extended 50 mg PO DAILY bladde r 01/20/25 Unknown History release 24 hr (Myrbetriq) nirmatrelvir 300 mg (150 mg See Rx Instructions PO .CO MPLEX 01/20/25 Unknown History x2)-ritonavir 100 mg tablet,dose pack (Paxlovid) Allergy/AdvReac Type Severity Reaction Status Date / Time oxycodone (From Percocet) Allergy Severe Hives Verified 01/20/25 01:40 Family History Father Heart disease Surgical History S/P appendectomy History of hysterectomy History of ankle surgery Presence of coronary angioplasty implant and graft Social History household members: friend(s) Smoking Status: Former smoker pack-years: 30 Tobacco: How many years used: 30 how long ago did patient quit smoking: Quit 20+ years prior. alcohol intake: current alcohol intake frequency: holidays/special occasions only substance use type: does not use caffeine: Yes Type: coffee Number of servings: 2 Review of Systems (Anesthesia) ROS Narrative System reviewed and no additional complaints, except as documented. Physical Exam Skin Skin Narrative: Patient has a generalized bluish-carl tinge to her skin. This is a result of taking silver to treat her fibromyalgia 20 years ago. Patient states that the fibromyalgia did improve with the silver treatments. 01/20/25 1403 <Electronically signed by Jareth zavala MD> Date _ Jareth Shepard MD Cosigner Signature: Date CC: ~ Signed [facility] Work Phone: [phone]) 980-785010-10-2025 Consult note [facility] Medical Records Department [address] [place] [address] Consultation - Orthopedics 01/20/25 1415 MR#: [id number] Acct: [id number] Name: MONISHA COHN Rep #:[id number] : 1940 84 From: Braulio Fontana PCP: Tressa Rosales Status:ADM IN Location: [facility] [place] MU165-2 HPI Consult Data Date of Consult: 01/20/25 HPI Narrative Reason for Consultation: Right hand pain, right hip pain HPI Narrative: MONISHA COHN, is a 84 F with multiple medical comorbidities and ongoing COVID-19 with treatment thatis current who presents with right hip pain. Patient is known to our practice she did have a left hip fracture with cephalomedullary nail 2 years ago with my partner. Patient notes that she lives in a [facility] and ambulates with a walker or uses a wheelchair. She does notwalk independently. She was reported to have fallen yesterday and sustained an injury to her right hand and hip. She was seen at an outside hospital and requested transfer to [place] as they did not have orthopedics. She was placed in a ulnar gutter splint for her right hand pain and right hip pain. Patient today reports 6 out of 10 pain in the right thigh and groin region worse with motion better with immobilization. Patient denies any new associated paresthesias. Patient is unable to walk at this time due to the pain. Patient denies history of blood clots. Patient denies any current treatment or activemalignancies. [facility] Medical History Nocturia Urge incontinence Overactive bladder Former tobacco use Depression Hypertension Fall CHI (closed head injury) Presence of stent in coronary artery (~12/22/21) Atherosclerotic heart disease of [place] coronary artery without angina pectoris ST elevation myocardial infarction (STEMI) of inferior wall (~12/22/21) Essential (primary) hypertension Parkinsons disease Urgency of urination Gout Cardiogenic shock Non-rheumatic mitral regurgitation Non-rheumatic tricuspid valve insufficiency Pulmonary hypertension Emphysema with chronic bronchitis Fibromyalgia Hyperlipidemia CAD (coronary artery disease) Bladder spasms Edema, lower extremity Myocardial infarction Home Medications ?Medication ?Instructions ?Recorded ?Last Taken ?Type aspirin 81 mg tablet,delayed 81 mg PO DAILY blood thin ner 02/25/22 05/01/23 History release (Adult Aspirin Regimen) acetaminophen 325 mg capsule 650 mg PO Q6H PRN fever o r pain 05/01/23 04/29/23 History atorvastatin 40 mg tablet 40 mg PO QHS hld 05/01/23 History polyethylene glycol 3350 17 17 g PO DAILY 05/01/23 History gram/dose oral powder (ClearLax) psyllium husk 3.4 gram/5.4 gram 1 tbsp PO DAILY 04/30/23 History oral powder (Stacie-Mucil) alendronate 70 mg tablet 70 mg PO QWEEK osteoporosis 09/27/24 Unknown History carbidopa 25 mg-levodopa 100 mg 2 tab PO DAILY kelsey on 09/27/24 Unknown History tablet celecoxib 200 mg capsule 200 mg PO QDAY 09/27/24 Unkn own History duloxetine 20 mg capsule,delayed 20 mg PO QDAY 5 Unknown History release tramadol 50 mg tablet 50 mg PO TID PRN pain Unknown History guaifenesin 100 mg/5 mL oral liquid 200 mg PO Q4H PRN cough 12/28/24 Unknown History melatonin 3 mg capsule 3 mg PO HS PRN sleep 5 Unknown History simethicone 125 mg chewable tablet 125 mg PO QD-BID ND N abdominal 12/28/24 Unknown History (Mylanta Gas) distention ascorbic acid (vitamin C) 500 mg 500 mg PO DAILY suppl ement 01/20/25 Unknown History capsule carbidopa 25 mg-levodopa 100 mg 1.5 tab PO TID kelsey on 01/20/25 Unknown History tablet (Dhivy) cholecalciferol (vitamin D3) 50 50 mcg PO DAILY supple ment 01/20/25 Unknown History mcg (2,000 unit) capsule cyanocobalamin (vitamin B-12) 5,000 mcg PO DAILY suppl ement 01/20/25 Unknown History 5,000 mcg capsule mirabegron 50 mg tablet,extended 50 mg PO DAILY bladde r 01/20/25 Unknown History release 24 hr (Myrbetriq) nirmatrelvir 300 mg (150 mg See Rx Instructions PO .CO MPLEX 01/20/25 Unknown History x2)-ritonavir 100 mg tablet,dose pack (Paxlovid) Allergy/AdvReac Type Severity Reaction Status Date / Time oxycodone (From Percocet) Allergy Severe Hives Verified 01/20/25 01:40 Family History Father Heart disease Surgical History S/P appendectomy History of hysterectomy History of ankle surgery Presence of coronary angioplasty implant and graft Social History household members: friend(s) Smoking Status: Former smoker pack-years: 30 Tobacco: How many years used: 30 how long ago did patient quit smoking: Quit 20+ years prior. alcohol intake: current alcohol intake frequency: holidays/special occasions only substance use type: does not use caffeine: Yes Type: coffee Number of servings: 2 ROS ROS Narrative Outside of HPI 14 point review of systems was negative today Vital Signs Vital Signs Vital Signs: 01/20/25 01:30 01/20/25 01:40 01/20/25 02:27 Temperature 98.1 F Temperature Source Oral Pulse Rate 100 98 Pulse Strength Respiratory Rate 18 Respiratory Effort Normal Non-Labored Respiratory Depth Normal Respiratory Pattern Normal Blood Pressure 150/75 H Blood Pressure Mean 100 Blood Pressure Source Monitor Blood Pressure Position Semi-Fowlers Blood Pressure Location Left Forearm Pulse Ox 97 Oxygen Delivery Method Nasal Cannula Nasal Cannula Oxygen Flow Rate (L/min) 2 2 01/20/25 05:10 01/20/25 07:10 01/20/25 07:50 Temperature 98.4 F 98.2 F Temperature Source Oral Oral Pulse Rate 103 H 92 Pulse Strength Respiratory Rate 18 16 Respiratory Effort Respiratory Depth Respiratory Pattern Blood Pressure 143/53 H 142/73 H Blood Pressure Mean 83 96 Blood Pressure Source Monitor Blood Pressure Position Semi-Fowlers Blood Pressure Location Left Forearm Pulse Ox 99 99 Oxygen Delivery Method Nasal Cannula Nasal Cannula Nasal Cannula Oxygen Flow Rate (L/min) 2 2 2 01/20/25 09:57 01/20/25 10:00 01/20/25 10:58 Temperature 98.2 F Temperature Source Oral Pulse Rate 92 Pulse Strength Normal (2+) Respiratory Rate 16 Respiratory Effort Normal Non-Labored Respiratory Depth Respiratory Pattern Blood Pressure 142/73 H Blood Pressure Mean 96 Blood Pressure Source Monitor Blood Pressure Position Semi-Fowlers Blood Pressure Location Right Arm Pulse Ox 99 Oxygen Delivery Method Nasal Cannula Nasal Cannula Oxygen Flow Rate (L/min) 2 2 01/20/25 11:58 01/20/25 14:03 Temperature 98.2 F 98.2 F Temperature Source Oral Pulse Rate 92 92 Pulse Strength Respiratory Rate 16 16 Respiratory Effort Respiratory Depth Respiratory Pattern Blood Pressure 142/73 H 142/73 H Blood Pressure Mean 96 Blood Pressure Source Monitor Blood Pressure Position Semi-Fowlers Blood Pressure Location Right Arm Pulse Ox 99 99 Oxygen Delivery Method Nasal Cannula Nasal Cannula Oxygen Flow Rate (L/min) 2 2 Weight Weight: 165 lb 5.547 oz Body Mass Index (BMI) 30.4 Physical Exam Const alert, oriented x3 and well nourished General Appearance: cooperative HEENT normocephalic and head/scalp atraumatic Eyes PERRL Neck no JVD Resp normal respiratory effort Cardio Cardio Narrative: Regular pulse rate distal pulse GI GI Narrative: Nondistended Extremity Extremity Narrative: Right lower extremity: Skin clean, dry, and intact. Limb is shortened and externally rotated Motor is intact dorsiflexion, EHL and plantar flexion. Sensation is intact to light touch saphenous, iris,l superficial peroneal, deep peroneal and tibialdistributions. Calves are soft and supple. Right hand: Hand is in an ulnar gutter splint. Tenderness palpation over the fourth metacarpal baseupon palpation. Digits are warm and pink. Splint appears to fit well. Skin Skin Narrative: Skin on the right thigh is intact Neuro CN's II-XII intact bilaterally Psych affect normal Medical Records Data Attestation: I reviewed the patient's medical records Lab / Micro Data Attestation: I reviewed the patient's lab results. 01/20/25 02:05 01/20/25 02:05 Labs: Laboratory Results - last 24 hr 01/20/25 02:05: WBC 8.5, RBC 4.07 L, Hgb 11.1 L, Hct 34.5 L, MCV 84.8, MCH 27.3,MCHC 32.2, RDW Std Deviation 40.1, RDW Coeff of Aleena 13.1, Plt Count 241, MPV 8.8, Immature Gran % (Auto) 0.400, Neut % (Auto) 81.1 H, Lymph % (Auto) 11.1 L, Villalba % (Auto) 7.2, Eos % (Auto) 0.1, Baso % (Auto) 0.1, Absolute Neuts (auto) 6.9, Absolute Lymphs (auto) 0.94, Nucleated RBC % 0, Sodium 134, Potassium 3.5, Chloride 100, Carbon Dioxide 21.8, Anion Gap 12, BUN 13, Creatinine 0.65 L, Estim Creat Clear Calc 50.52, Est GFR (MDRD) Non-Af 87, BUN/Creatinine Ratio 19.9, Glucose 98, Calcium 8.2, Phosphorus 2.4 L, Total Bilirubin 0.63, AST 19, ALT < 5, Alkaline Phosphatase 51, Troponin T High Sens 27 H, Total Protein 6.3, Albumin 3.6, Globulin 2.7, Albumin/Globulin Ratio 1.4, Vitamin B12 1234 H, SerumFolate 6.23, TSH 1.900, Blood Type B POSITIVE, Antibody Screen NEGATIVE 01/20/25 04:10: Urine Color Yellow, Urine Clarity Sl. Cloudy, Urine pH 6.5, Ur Specific [place] 1.010, Urine Protein 15 H, Urine Glucose (UA) Normal, Urine Ketones 15 H, Urine Occult Blood 10 H, Urine Nitrite Negative, Urine Bilirubin Negative, Urine Urobilinogen Normal, Ur Leukocyte Esterase Negative, Urine RBC 0SEEN, Urine WBC 0 SEEN, Ur Squamous Epith Cells 0 SEEN, Urine Bacteria 0 SEEN, UrineMucus 0 SEEN 01/20/25 04:18: Troponin T Hi Sens 2 Hr 29 H 01/20/25 06:10: Troponin T Hi Sens 4Hr 28 H Imaging Outside right hand x-rays were reviewed patient does have a nondisplaced fracture at the base of the fourth metacarpal. Patient has osteopenic appearingbone. Patient's AP pelvis and right hip x-rays reveal a valgus displaced subcapital femoral neck fracture on the right hip. Previous left hip cephalomedullary nail with well-healed intertrochanteric fracture. Assessment & Plan Assessment/Plan (1) Subcapital fracture of right femur: PLAN: Natural history of the disease process and treatment options were discussed with the patient as well as her family member who is at bedside. Ultimately, we discussed nonoperative treatment as well as 3 available operativetreatment options. I did not recommend nonoperative treatment. Did not recommend percutaneous pinning. I do not recommend total hip replacement. I did recommend a partial replacement which I felt would be the most appropriate treatment based on patient's age and medical morbidities. Risks and benefits ofthe procedure were discussed with patient including but not limitedto blood loss, DVTs, PEs, neurovascular damage, infection, and risk of anesthesia including loss oflife. This also includes dislocations, leg discrepancies intraoperative and postoperative fractures. Once patient was satisfied with ourdiscussion she demonstrated agreement to proceed with surgery. We both agreed on the appropriate side and the right side was marked in the preoperative area. Antibiotics on-call to the operating room. Patient is NPO. Patient has received adequate clearance from surgery at this point and we will plan to proceed with surgery supplement. (2) Nondisplaced fracture of base of fourth metacarpal bone, right hand, initialencounter for closed fracture: PLAN: Natural history of the disease process and treatment options were discussed the patient. Ultimately, patient is in a appropriate ulnar gutter splint and I felt appropriate to leave her in at this time. Will proceed with nonweightbearing to the hand. Should patient will be able to bear weight with aplatform on a walker through her elbow. 01/20/25 1424 Cosigner Signature (if applicable): CC: Tressa Rosales~ Signed [facility]10-10-2025 Progress note Author Darline Lundy [facility] Note Date/Time January 20, 2025 1 2:07pm [facility] Medical Records Department [address] [place] [address] Progress Note - Hospitalist 01/20/25 0842 MR#: [id number] Acct: [id number] Name: MONISHA COHN Rep #:[id number] : 1940 84 From: Darline Lundy MD PCP: Tressa Rosales Status:ADM IN Location: MS3 LN020-3 Hospitalist Note 84y/o F with a history of coronary artery disease with RCA stent, Parkinson's disease, fibromyalgia and overactive bladder, recent COVID diagnosis, who presented [facility] ED 01/20/2025 as a transfer from [facility] after she was found to have an impacted right femoral neck fracture. Reportedlyshe was at [facility] when she sustained a mechanical fall on her right side and subsequently could not please ambulate to assess for home O2 needs. Was noted to have a scalp hematoma and metacarpal fracture of right hand but denied any loss of consciousness with the fall. [facility] ED physician spoke to Dr. Tijerina withorthopedisofi who recommended admission to the hospital service with formal consultation for ORIF. Patient was transferred to a medical floor. # Impacted right intertrochanteric fracture of the femoral neck and metacarpal fracture right hand -After mechanical fall at [facility] -Ortho consulted -Patient n.p.o. -Pain control/supportive care -PT/OT postop # Parkinson's disease - continue home Sinemet - supportive care #Hx of CAD -w/ previous chronically on aspirin and statin -Continue home medications # Elevated trop - Troponin of 27, 29, and then 28 - No chest pain, fall was mechanical, no significant elevations or concern for ongoing/active process # Recent COVID diagnosis - Supportive care -Reports symptoms started Thursday and she was diagnosed on Thursday, has no shortness of breath or cough or respiratory complaints - Patient saturating well on 2 L of nasal cannula # History of fibromyalgia - Continue Cymbalta #DVT ppx: SCDs Darline Lundy MD 01/20/25 1207 <Electronically signed by Darline Lundy MD> Cosigner Signature (if applicable): CC: ~ Signed [facility] Work Phone: [phone]) 943-120710-10-2025 Consult note [facility] Medical Records Department [address] [place] [id number] Pre-Anesthesia Evaluation 01/20/25 1342 MR#: [id number] Acct: [id number] Name: MONISHA COHN Rep #:[id number] : 1940 84 From: Jareth Shepard MD PCP: Tressa Rosales Status:ADM IN Y Race: C Location: NH3 [facility] -1 ASA Classification* ASA Classification ASA Classification: 4 Assessment & Plan Anesthesia* Anesthesia Assessment Anesthesia Assessment: Discussed sedation and/or anesthesia options, risks, benefits, and alternatives with patient/parents/legal guardian/POA. Questions invited. The patient/parents/legal guardian/POA seems to understand and agrees to proceedwith anesthesia plan. Reviewed the physical assessment, medical history, allergy history and patient home medications list prior to surgery/procedure/anesthetic and documented any changes. Performed airway and anesthesia risk assessments. Anesthesia Type Anesthesia Type: General History Source History Obtained from:: Patient and Chart Anesthesia Focused Assessment* Temperature: 98.2 F Pulse Rate: 92 Blood Pressure: 142/73 Respiratory Rate: 16 Pulse Ox: 99 Oxygen Delivery Method: Nasal Cannula Oxygen Flow Rate (L/min): 2 Airway Assessment Mouth opens: >3 cm Mallampati Score: III Teeth Condition: Dentures (Upper dentures are out.) and Missing (Patient is missing most of her molars on the bottom. Front incisors are tight.) Neck Range of motion (ROM): Limited ROM (Severe Restriction) Labs Anesthesia Preop lab: CBC WBC, (4.4-11.0) 8.5 K/mm3 Today, 02:05 RBC, (4.2-5.4) 4.07 M/mm3 L Today, 02:05 Hgb, (12.0-15.0) 11.1 g/dL L Today, 02:05 Hct, (37-47) 34.5 % L Today, 02:05 Plt Count, (150-450) 241 K/mm3 Today, 02:05 CHEMISTRY Potassium, (3.3-5.1) 3.5 mmol/L Today, 02:05 Sodium, (133-145) 134 mmol/L Today, 02:05 Phosphorus, (2.7-4.5) 2.4 mg/dL L Today, 02:05 BUN, (4-19) 13 mg/dL Today, 02:05 Creatinine, (0.70-1.20) 0.65 mg/dL L Today, 02:05 Glucose, (70-99) 98 mg/dL Today, 02:05 POC Glucose, (74-106) 99 mg/dL 02/01/23, 14:26 TSH, (0.300-4.200) 1.900 uIU/mL Today, 02:05 COAG PT, (11.7-14.9) 16.1 SECONDS H 05/01/23, 14:15 Pre-Assessment Diagnosis/Proposed Procedure Planned Operative Procedure(s): Right hip hemiarthroplasty Anesthesia History Anesthesia History - pediatric oncology nurse: Anesthesia History - pediatric oncology nurse Hx Hospitalization Any Problems With Anesthesia No 01/20/25 01:31 Cholinesterase deficiency No 01/20/25 01:31 You/Your Family Experience No 01/20/25 01:31 fever (hyperthermia) with Relationship Recent Exposure to Contagious Yes: covid 01/20/25 01:31 Disease Does patient have nerve No 01/20/25 01:31 stimulator Patient instructed to have na 01/20/25 01:31 device shut off --Does patient have Pacemaker No 01/20/25 11:58 or ICD? When Was Last Pacemaker Check QUESTION #4 FULL TEXT: You/Your Family Experience fever (hyperthermia) with Anesthesia Last Oral Intake Last Oral intake: Last Oral Intake NPO since 00:00 01/20/25 11:58 Meds taken in AM with sips of Yes 01/20/25 11:58 water? Meds patient instructed to Carbidopa/levadopa 01/20/25 11:58 take am of surgery PONV PONV - pediatric oncology nurse: PONV - pediatric oncology nurse Female HX of Motion Sickness HX of N/V After Surgery Non-Smoker Duration of Surgery greater than 60 minutes Number of Risk Factors PONV Score Height & Weight Height & Weight: Anesthesia: Height & Weight Height 5 ft 1.81 in 01/20/25 11:58 Weight: 75 kg 01/20/25 11:58 Body Mass Index (BMI) 30.4 01/20/25 11:58 Respiratory Assessment Respiratory Assessment - pediatric oncology nurse: Respiratory Tract Infection Hx - pediatric oncology nurse Hx Respiratory Tract Infection Yes: covid 01/20/25 01:31 Any additional information?: Yes Hx Respiratory Tract Infection: Yes History of Anesthesia Respiratory Infection details: Patient started having symptoms of COVID 4 days ago. Symptoms included headache and greenish sputum. No significant shortness of breath. She broke her hip yesterday and only started wearing oxygen after being admitted to the hospital. STOP Sleep Apnea STOP Sleep Apnea - pediatric oncology nurse: STOP Sleep Apnea - pediatric oncology nurse Hx Hypertension Yes 01/20/25 01:18 Hx Sleep Apnea No 01/20/25 01:18 CPAP BIPAP Do you snore loudly (louder No 01/20/25 01:18 than talking or can be heard Do you often feel tired/ No 01/20/25 01:18 fatigued/ sleepy during daytime? Has anyone observed you stop No 01/20/25 01:18 breathing during sleep? STOP Results Negative 01/20/25 01:18 QUESTION #5 FULL TEXT : Do you snore loudly (louder than talking or can be heard through closeddoors)? 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 Specify any problems Hx of Preganancy in last 3 No 01/20/25 01:18 Months Nurse Filling Out Transfusion DREDICK 01/20/25 01:18 & Questions: Date: 01/20/25 01/20/25 01:18 Time: 01:19 01/20/25 01:18 Patient unable to answer at this time (ie. confused, unrespo /Reproduction History /Reproductive History - pediatric oncology nurse: /Reproductive Hx- pediatric oncology nurse Hx Now No 01/20/25 01:31 Gestational Age (in weeks): EDC: Hx Hx Para Hx Section SAB No 01/20/25 01:31 Active Medications Active Medications: Current Medications Generic Name Dose Route Start Last Admin Trade Name Freq PRN Reason Stop Dose Admin Acetaminophen 650 mg 01/20/25 01:06 Acetaminophen 650 Mg Suppository RC Q6H PRN PRN Pain 1-5/10 or Fever Aspirin 81 mg 01/21/25 08:00 Aspirin E.C. 81 Mg Tablet PO BREAKFAST MARTY Atorvastatin Calcium 40 mg 01/20/25 22:00 Atorvastatin Calcium 40 Mg Tablet PO QHS MARTY Carbidopa/Levodopa 2 tablet 01/20/25 10:00 01/20/25 10:16 Carbidopa/Levodopa 25/100 Tablet PO 2 tablet DAILY MARTY Administration Carbidopa/Levodopa 1.5 tablet 01/20/25 14:00 Carbidopa/Levodopa 25/100 Tablet PO 1400,1800,2200 MARTY Duloxetine HCl 20 mg 01/20/25 10:00 Duloxetine Hcl 20 Mg Capsule PO DAILY MARTY Hydralazine HCl 5 mg 01/20/25 01:37 Hydralazine 20 Mg/Ml Vial IV Q8H PRN PRN SBP GREATER THAN 160 Protocol Sodium Chloride 250 mls @ 15 mls/hr 01/20/25 01:13 IV .[id number] PRN Saline Flush Sodium Chloride 250 mls @ 15 mls/hr 01/20/25 01:13 IV .[id number] PRN Additional IVPB Infusion Lactated Ringer's 1,000 mls @ 15 mls/hr 01/20/25 13:00 01/20/25 13:06 IV 15 mls/hr .Q48H MARTY Administration Morphine Sulfate 2 mg 01/20/25 01:06 01/20/25 09:21 Morphine 2 Mg/Ml Syringe IV 2 mg Q4H PRN PRN Administration Pain Score 6-10 Ondansetron HCl 4 mg 01/20/25 01:06 Ondansetron 4 Mg/2 Ml Vial IV Q6H PRN PRN NAUSEA/VOMITING Polyethylene Glycol 17 gm 01/20/25 10:00 Polyethylene Glycol 3350 17 Gm Packet PO DAILY [facility] Psyllium Hydrophilic Mucilloid 1 packet 01/20/25 10:00 Psyllium 1 Packet PO DAILY [facility] Sodium Chloride 10 - 40 ml 01/20/25 01:13 01/20/25 09:21 0.9% Saline Lock 10 Ml Syringe IV 10 ml UD PRN Administration SALINE FLUSH PFSH Medical History Nocturia Urge incontinence Overactive bladder Former tobacco use Depression Hypertension Fall CHI (closed head injury) Presence of stent in coronary artery (~12/22/21) Atherosclerotic heart disease of [place] coronary artery without angina pectoris ST elevation myocardial infarction (STEMI) of inferior wall (~12/22/21) Essential (primary) hypertension Parkinsons disease Urgency of urination Gout Cardiogenic shock Non-rheumatic mitral regurgitation Non-rheumatic tricuspid valve insufficiency Pulmonary hypertension Emphysema with chronic bronchitis Fibromyalgia Hyperlipidemia CAD (coronary artery disease) Bladder spasms Edema, lower extremity Myocardial infarction Home Medications ?Medication ?Instructions ?Recorded ?Last Taken ?Type aspirin 81 mg tablet,delayed 81 mg PO DAILY blood thin ner 02/25/22 05/01/23 History release (Adult Aspirin Regimen) acetaminophen 325 mg capsule 650 mg PO Q6H PRN fever o r pain 05/01/23 04/29/23 History atorvastatin 40 mg tablet 40 mg PO QHS hld 05/01/23 History polyethylene glycol 3350 17 17 g PO DAILY 05/01/23 History gram/dose oral powder (ClearLax) psyllium husk 3.4 gram/5.4 gram 1 tbsp PO DAILY 04/30/23 History oral powder (Stacie-Mucil) alendronate 70 mg tablet 70 mg PO QWEEK osteoporosis 09/27/24 Unknown History carbidopa 25 mg-levodopa 100 mg 2 tab PO DAILY kelsey on 09/27/24 Unknown History tablet celecoxib 200 mg capsule 200 mg PO QDAY 09/27/24 Unkn own History duloxetine 20 mg capsule,delayed 20 mg PO QDAY 5 Unknown History release tramadol 50 mg tablet 50 mg PO TID PRN pain Unknown History guaifenesin 100 mg/5 mL oral liquid 200 mg PO Q4H PRN cough 12/28/24 Unknown History melatonin 3 mg capsule 3 mg PO HS PRN sleep 5 Unknown History simethicone 125 mg chewable tablet 125 mg PO QD-BID ND N abdominal 12/28/24 Unknown History (Mylanta Gas) distention ascorbic acid (vitamin C) 500 mg 500 mg PO DAILY suppl ement 01/20/25 Unknown History capsule carbidopa 25 mg-levodopa 100 mg 1.5 tab PO TID kelsey on 01/20/25 Unknown History tablet (Dhivy) cholecalciferol (vitamin D3) 50 50 mcg PO DAILY supple ment 01/20/25 Unknown History mcg (2,000 unit) capsule cyanocobalamin (vitamin B-12) 5,000 mcg PO DAILY suppl ement 01/20/25 Unknown History 5,000 mcg capsule mirabegron 50 mg tablet,extended 50 mg PO DAILY bladde r 01/20/25 Unknown History release 24 hr (Myrbetriq) nirmatrelvir 300 mg (150 mg See Rx Instructions PO .CO MPLEX 01/20/25 Unknown History x2)-ritonavir 100 mg tablet,dose pack (Paxlovid) Allergy/AdvReac Type Severity Reaction Status Date / Time oxycodone (From Percocet) Allergy Severe Hives Verified 01/20/25 01:40 Family History Father Heart disease Surgical History S/P appendectomy History of hysterectomy History of ankle surgery Presence of coronary angioplasty implant and graft Social History household members: friend(s) Smoking Status: Former smoker pack-years: 30 Tobacco: How many years used: 30 how long ago did patient quit smoking: Quit 20+ years prior. alcohol intake: current alcohol intake frequency: holidays/special occasions only substance use type: does not use caffeine: Yes Type: coffee Number of servings: 2 Review of Systems (Anesthesia) ROS Narrative System reviewed and no additional complaints, except as documented. Physical Exam Skin Skin Narrative: Patient has a generalized bluish-carl tinge to her skin. This is a result of taking silver to treather fibromyalgia 20 years ago. Patient states that the fibromyalgia did improve with the silver treatments. 01/20/25 1403 lucas DEL RIO> Date _ Jareth Shepard MD Cosigner Signature: Date CC: ~ Signed [facility]10-10-2025 Progress note [facility] Medical Records Department [address] [place] [address] Progress Note - Hospitalist 01/20/25 0842 MR#: [id number] Acct: [id number] Name: MONISHA COHN Rep #:[id number] : 1940 84 From: Darline Lundy MD PCP: Tressa Rosales Status:ADM IN Location: MS3 MS472-7 Hospitalist Note 84y/o F with a history of coronary artery disease with RCA stent, Parkinson's disease, fibromyalgiaand overactive bladder, recent COVID diagnosis, who presented [facility] ED 01/20/2025 as a transfer from [facility] after she was found to have an impacted right femoral neck fracture. Carla masterson was at [facility] when she sustained a mechanical fall on her right side and subsequently could not please ambulate to assess for home O2 needs. Was noted to have a scalp hematoma and metacarpal fracture of right hand but denied any loss of consciousness with the fall. [facility] physician spoketo Dr. Tijerina withorthopedics who recommended admission to the hospital service with formal consultation for ORIF. Patient was transferred to a medical floor. # Impacted right intertrochanteric fracture of the femoral neck and metacarpal fracture right hand -After mechanical fall at [facility] -Ortho consulted -Patient n.p.o. -Pain control/supportive care -PT/OT postop # Parkinson's disease - continue home Sinemet - supportive care #Hx of CAD -w/ previous chronically on aspirin and statin -Continue home medications # Elevated trop - Troponin of 27, 29, and then 28 - No chest pain, fall was mechanical, no significant elevations or concern for ongoing/active process # Recent COVID diagnosis - Supportive care -Reports symptoms started Thursday and she was diagnosed on Thursday, has no shortness of breath or cough or respiratory complaints - Patient saturating well on 2 L of nasal cannula # History of fibromyalgia - Continue Cymbalta #DVT ppx: SCDs Darline Lundy MD 01/20/25 1207 Cosigner Signature (if applicable): CC: ~ Signed [facility]10-10-2025 History and physical note Author Stephan Beard [facility] Note Date/Time January 20, 2025 6 :54am [facility] Medical Records Department [address] [place] [address] H&P Exam - Hospitalist 01/20/25 0112 MR#: [id number] Acct: [id number] Name: MONISHA COHN Rep #:[id number] : 1940 84 From: Stephan Hernandez DO PCP: Tressa Rosales Status:ADM IN Location: NH3 FL406-2 [facility] - General General Date of Admission: 01/20/25 Date of Service: 01/20/25 Chief Complaint: Fall with Right Hip Fracture. HPI Narrative MONISHA COHN, is a 84 F with a past medical history of essential hypertension; currently not on treatment, hyperlipidemia; on atorvastatin, former tobacco abuse; with subsequent COPD and pulmonary hypertension, CAD; with RCA stent at [facility] in [place] (2009) and subsequent inferior wall ST elevation [place] s/p RCA stent with cardiogenic shock and cardiac arrest x 3 (2021) on baby aspirin daily, history of nonrheumatic mitral/tricuspid valve insufficiency, Parkinson's disease; on carbidopa-levodopa 3 times daily, fibromyalgia, depression; on duloxetine, history of argyria (bluish skin discoloration); attributed to taking colloidal silver for protracted period of time, OAB; on mirabegron, chronic constipation; on polyethylene glycol daily plus simethicone twice daily as needed, history of gout; currently not on treatment, osteoporosis; on alendronate weekly, OA; on celecoxib plus tramadol 3 times daily as needed and recently diagnosed COVID-19 who was transferred from [facility] she was diagnosed with an impacted Right femoral neck fracture in the setting of already being on nirmatrelvir-ritonavir. According to the records the patient was at her [facility] when she sustained a mechanical fall onto her Right side with subsequent inability to ambulate. She was noted to have a scalp hematoma with a metacarpal fracture of her Right hand but she denied LOC with her fall. Dr. [facility] of [facility] spoke to Dr. Tijerina of the orthopedic service here who recommended admission to the hospitalist service with formal consultation pending in the a.m. for ORIF. She was then admitted to the generalmedical floor for ongoing care for stay that is expected to extend beyond 2 midnights. [facility] Medical History Nocturia Urge incontinence Overactive bladder Former tobacco use Depression Hypertension Fall CHI (closed head injury) Presence of stent in coronary artery (~12/22/21) Atherosclerotic heart disease of [place] coronary artery without angina pectoris ST elevation myocardial infarction (STEMI) of inferior wall (~12/22/21) Essential (primary) hypertension Parkinsons disease Urgency of urination Gout Cardiogenic shock Non-rheumatic mitral regurgitation Non-rheumatic tricuspid valve insufficiency Pulmonary hypertension Emphysema with chronic bronchitis Fibromyalgia Hyperlipidemia CAD (coronary artery disease) Bladder spasms Edema, lower extremity Myocardial infarction Home Medications ?Medication ?Instructions ?Recorded ?Last Taken ?Type aspirin 81 mg tablet,delayed 81 mg PO DAILY blood thin ner 02/25/22 05/01/23 History release (Adult Aspirin Regimen) acetaminophen 325 mg capsule 650 mg PO Q6H PRN fever o r pain 05/01/23 04/29/23 History atorvastatin 40 mg tablet 40 mg PO QHS hld 05/01/23 History polyethylene glycol 3350 17 17 g PO DAILY 05/01/23 History gram/dose oral powder (ClearLax) psyllium husk 3.4 gram/5.4 gram 1 tbsp PO DAILY 04/30/23 History oral powder (Stacie-Mucil) alendronate 70 mg tablet 70 mg PO QWEEK osteoporosis 09/27/24 Unknown History carbidopa 25 mg-levodopa 100 mg 2 tab PO DAILY kelsey on 09/27/24 Unknown History tablet celecoxib 200 mg capsule 200 mg PO QDAY 09/27/24 Unkn own History duloxetine 20 mg capsule,delayed 20 mg PO QDAY 5 Unknown History release tramadol 50 mg tablet 50 mg PO TID PRN pain Unknown History guaifenesin 100 mg/5 mL oral liquid 200 mg PO Q4H PRN cough 12/28/24 Unknown History melatonin 3 mg capsule 3 mg PO HS PRN sleep 5 Unknown History simethicone 125 mg chewable tablet 125 mg PO QD-BID ND N abdominal 12/28/24 Unknown History (Mylanta Gas) distention ascorbic acid (vitamin C) 500 mg 500 mg PO DAILY suppl ement 01/20/25 Unknown History capsule carbidopa 25 mg-levodopa 100 mg 1.5 tab PO TID kelsey on 01/20/25 Unknown History tablet (Dhivy) cholecalciferol (vitamin D3) 50 50 mcg PO DAILY supple ment 01/20/25 Unknown History mcg (2,000 unit) capsule cyanocobalamin (vitamin B-12) 5,000 mcg PO DAILY suppl ement 01/20/25 Unknown History 5,000 mcg capsule mirabegron 50 mg tablet,extended 50 mg PO DAILY bladde r 01/20/25 Unknown History release 24 hr (Myrbetriq) nirmatrelvir 300 mg (150 mg See Rx Instructions PO .CO MPLEX 01/20/25 Unknown History x2)-ritonavir 100 mg tablet,dose pack (Paxlovid) Allergy/AdvReac Type Severity Reaction Status Date / Time oxycodone (From Percocet) Allergy Severe Hives Verified 01/20/25 01:40 Family History Father Heart disease Surgical History S/P appendectomy History of hysterectomy History of ankle surgery Presence of coronary angioplasty implant and graft Social History household members: friend(s) Smoking Status: Former smoker pack-years: 30 Tobacco: How many years used: 30 how long ago did patient quit smoking: Quit 20+ years prior. alcohol intake: current alcohol intake frequency: holidays/special occasions only substance use type: does not use caffeine: Yes Type: coffee Number of servings: 2 ROS ROS Narrative Review of Systems: Constitutional: Patient denies fever or chills. Eyes: Patient denies change in vision or discharge from eyes. ENT: Patient denies runny nose, sore throat or ear pain. Resp: Patient denies shortness of breath or cough. CV: Patient denies chest pain, palpitations or heart racing. GI: Patient admits to chronic diarrhea but she denies abdominal pain, nausea or vomiting. : Patient denies dysuria or hematuria. MSK: Patient admits to severe Right hip pain with inability to ambulate after fall as per HPI. Skin: Patient admits to scalp hematoma and fracture of the metacarpal of the Right hand after recent fall as per HPI. She denies rash. Psych: Patient denies symptoms of uncontrolled depression or anxiety. Neuro: Patient has chronic Parkinson's disease with poor balance but she denies headache, paresthesias or focal neurologic deficits. Allergy: Patient denies lip swelling, tongue swelling or urticaria. Hematology: Patient denies easy bleeding or easy bruisability. Endocrinology: Patient denies polyuria, polydipsia, polyphagia or heat/cold intolerance. 14 point ROS otherwise negative except for positives noted above in HPI. Physical Exam Const alert, oriented x3, no apparent distress and average body habitus General Appearance: cooperative HEENT normocephalic, head/scalp atraumatic and hearing grossly normal bilaterally HEENT Narrative: Mucous membranes dry. Eyes PERRL, EOMs intact bilaterally and conjunctivae normal Neck no lymphadenopathy, supple and no JVD Resp normal respiratory effort, no retractions, no use of accessory muscles and clearto auscultation bilaterally Cardio regular rate and regular rhythm GI normal to inspection, nondistended, normoactive bowel sounds, soft to palpation,non-tender and non-distended Extremity Extremity Narrative: RLE shortened admixed internally rotated with positive logroll sign. Negative signs of neurovascular compromise with good pulses throughout. Skin Skin Narrative: Patient has bluish discoloration of skin but no rash. Neuro oriented x3, CN's II-XII intact bilaterally, moves all extremities and no focal motor deficits Sensorium / Orientation: awake, alert, oriented to person, oriented to place andoriented to time Speech: speech normal Psych affect normal Results Medical Records Data Attestation: I reviewed the patient's medical records Lab / Micro Data Attestation: I reviewed the patient's lab results. 01/20/25 02:05 01/20/25 02:05 Assessment & Plan Assessment/Plan (1) Closed hip fracture: QUALIFIERS: Encounter type: initial encounter Laterality: left Qualified Code(s): S72.002A - Fracture of unspecified part of neck of left femur,initial encounter for closed fracture (2) Scalp hematoma: QUALIFIERS: Encounter type: initial encounter Qualified Code(s): S00.03XA - Contusion of scalp, initial encounter (3) Metacarpal bone fracture: QUALIFIERS: Encounter type: initial encounter Metacarpal bone: unspecified metacarpal Fracture type: closed Fracture alignment: nondisplaced Metacarpal location: shaft Qualified Code(s): S62.359A - Nondisplaced fracture of shaft of unspecified metacarpal bone, initial encounter for closed fracture (4) Fall: QUALIFIERS: Encounter type: initial encounter Qualified Code(s): W19.XXXA - Unspecified fall, initial encounter (5) COVID-19: (6) History of Parkinson's disease: (7) Presence of stent in coronary artery: (8) Obesity (BMI 30.0-34.9): PLAN: Plan 1. Impacted Right intertrochanteric femoral neck fracture after Fall with ScalpHematoma and Metacarpal Fracture of Right hand - Admit to general medical floor. Keep n.p.o. for planned ORIF in AM. Give acetaminophen as needed for [id number]-[id number] (level 1-5/10) pain or fever. Give morphine IV as needed for severe (level 6- 10/10) pain. Finally, we will consult Dr. Tijerina of orthopedicsto see this patient on rounds in the a.m. with help appreciated in advance. 2. Recently diagnosed COVID-19 on nirmatrelvir-ritonavir complicating #1 - Current therapy to continue with patient not acutely ill or SOB. 3. Parkinson's disease; on carbidopa-levodopa 3 times daily with poor balance compounding #1 & #2 - Continue present treatment as before. 4. CAD; with RCA stent at [facility] in [place] (2009) and subsequent inferior wall ST elevation [place] s/p RCA stent with cardiogenic shock and cardiac arrest x 3 (2021) on baby aspirin daily adding to the medical complexity of #1 -#3 - Stable. Serialize troponin. 5. Obesity (class I); with BMI of 30.2 this admission adding to the burden of disease outlined from #1 - #4 - Weight loss will be recommended. Check TSH. This complicates her case and may hamper recovery. 6. Essential hypertension; currently not on treatment - Give hydralazine IV prnfor systolic blood pressure > 160 mmHg. 7. Hyperlipidemia; on atorvastatin - Maintain statin. 8. Former tobacco abuse; with subsequent COPD and pulmonary hypertension - Stable with no current evidence of acute flare. 9. History of nonrheumatic mitral/tricuspid valve insufficiency - Noted with recent echocardiogram done November 07, 2024 which revealed LVEF ~65% with diastolicfunction indeterminant and moderately-severe (3+) tricuspid valve insufficiency with trivial mitral valve insufficiency. 10. Fibromyalgia - Stable. 11. Depression; on duloxetine - Restart this agent when patient is cleared for oral intake. 12. History of argyria (bluish skin discoloration); attributed to taking colloidal silver for protracted period of time - Stable. 13. OAB; on mirabegron - Current therapy to continue after ORIF. 14. Chronic constipation; on polyethylene glycol daily plus simethicone twice daily as needed - Maintain bowel regimen. 15. History of gout; currently not on treatment - Stable with no evidence of acute flare. 16. Osteoporosis; on alendronate weekly - Resume this agent as outpatient. 17. OA; on celecoxib plus tramadol 3 times daily as needed - We will follow pain regimen and scales outlined in #1. 18. DVT prophylaxis - SCD on LLE only preoperatively with increased risk of bleeding complications in cases of traumatic fracture. Postoperative DVT prophylaxis to be decided upon by orthopod. Total time: Approximately (but not less than) 75 minutes. Charges/Coding Visit Charges Inpatient E&M: 44072 Init Hosp L3 01/20/25 0654 <Electronically signed by Stephan Martel DO> Cosigner Signature (if applicable): CC: Dr. Stephan Martel DO; Tressa Rosales~ Signed [facility] Work Phone: [phone]) 451-243510-10-2025 History and physical note [facility] Medical Records Department [address] [place] [address] H&P Exam - Hospitalist 01/20/25 0112 MR#: [id number] Acct: [id number] Name: MONISHA COHN Rep #:[id number] : 1940 84 From: Stephan Hernandez DO PCP: Tressa Rosales Status:ADM IN Location: NH3 [id number] [facility] - General General Date of Admission: 01/20/25 Date of Service: 01/20/25 Chief Complaint: Fall with Right Hip Fracture. HPI Narrative MONISHA COHN, is a 84 F with a past medical history of essential hypertension; currently not on treatment, hyperlipidemia; on atorvastatin, former tobacco abuse; with subsequent COPD and pulmonary hypertension, CAD; with RCA stent at [facility] in [place] (2009) and subsequent inferior wall ST elevation [place] s/p RCA stent with cardiogenic shock and cardiac arrest x 3 (2021) on baby aspirin daily, history of nonrheumatic mitral/tricuspid valve insufficiency, Parkinson's disease; on carbidopa-levodopa 3 times daily, fibromyalgia, depression; on duloxetine, history of argyria (bluish skin discoloration); attributed to taking colloidal silver for protracted period of time, OAB; on mirabegron,chronic constipation; on polyethylene glycol daily plus simethicone twice daily as needed, history of gout; currently not on treatment, osteoporosis; on alendronate weekly, OA; on celecoxib plus tramadol 3 times daily as needed and recently diagnosed COVID-19 who was transferred from [facility] she was diagnosed with an impacted Right femoral neck fracture in the setting of already being on nirmatrelvir-ritonavir. According to the records the patient was at her ECF when she sustained a mechanical fall onto her Right side with subsequent inability to ambulate. She was noted to have a scalp hematoma with a metacarpal fracture of her Right hand but she denied LOC with her fall. Dr. [facility] spoke to Dr. Tijerina of the orthopedic service here who recommended admission to the hospitalist service with formal consultation pending in the a.m. for ORIF. She was then admitted to the generalmedical floor for ongoing care for stay that is expected to extend beyond 2 midnights. [facility] Medical History Nocturia Urge incontinence Overactive bladder Former tobacco use Depression Hypertension Fall [facility] (closed head injury) Presence of stent in coronary artery (~12/22/21) Atherosclerotic heart disease of [place] coronary artery without angina pectoris ST elevation myocardial infarction (STEMI) of inferior wall (~12/22/21) Essential (primary) hypertension Parkinsons disease Urgency of urination Gout Cardiogenic shock Non-rheumatic mitral regurgitation Non-rheumatic tricuspid valve insufficiency Pulmonary hypertension Emphysema with chronic bronchitis Fibromyalgia Hyperlipidemia CAD (coronary artery disease) Bladder spasms Edema, lower extremity Myocardial infarction Home Medications ?Medication ?Instructions ?Recorded ?Last Taken ?Type aspirin 81 mg tablet,delayed 81 mg PO DAILY blood thin ner 02/25/22 05/01/23 History release (Adult Aspirin Regimen) acetaminophen 325 mg capsule 650 mg PO Q6H PRN fever o r pain 05/01/23 04/29/23 History atorvastatin 40 mg tablet 40 mg PO QHS hld 05/01/23 History polyethylene glycol 3350 17 17 g PO DAILY 05/01/23 History gram/dose oral powder (ClearLax) psyllium husk 3.4 gram/5.4 gram 1 tbsp PO DAILY 04/30/23 History oral powder (Stacie-Mucil) alendronate 70 mg tablet 70 mg PO QWEEK osteoporosis 09/27/24 Unknown History carbidopa 25 mg-levodopa 100 mg 2 tab PO DAILY kelsey on 09/27/24 Unknown History tablet celecoxib 200 mg capsule 200 mg PO QDAY 09/27/24 Unkn own History duloxetine 20 mg capsule,delayed 20 mg PO QDAY 5 Unknown History release tramadol 50 mg tablet 50 mg PO TID PRN pain Unknown History guaifenesin 100 mg/5 mL oral liquid 200 mg PO Q4H PRN cough 12/28/24 Unknown History melatonin 3 mg capsule 3 mg PO HS PRN sleep 5 Unknown History simethicone 125 mg chewable tablet 125 mg PO QD-BID ND N abdominal 12/28/24 Unknown History (Mylanta Gas) distention ascorbic acid (vitamin C) 500 mg 500 mg PO DAILY suppl ement 01/20/25 Unknown History capsule carbidopa 25 mg-levodopa 100 mg 1.5 tab PO TID kelsey on 01/20/25 Unknown History tablet (Dhivy) cholecalciferol (vitamin D3) 50 50 mcg PO DAILY supple ment 01/20/25 Unknown History mcg (2,000 unit) capsule cyanocobalamin (vitamin B-12) 5,000 mcg PO DAILY suppl ement 01/20/25 Unknown History 5,000 mcg capsule mirabegron 50 mg tablet,extended 50 mg PO DAILY bladde r 01/20/25 Unknown History release 24 hr (Myrbetriq) nirmatrelvir 300 mg (150 mg See Rx Instructions PO .CO MPLEX 01/20/25 Unknown History x2)-ritonavir 100 mg tablet,dose pack (Paxlovid) Allergy/AdvReac Type Severity Reaction Status Date / Time oxycodone (From Percocet) Allergy Severe Hives Verified 01/20/25 01:40 Family History Father Heart disease Surgical History S/P appendectomy History of hysterectomy History of ankle surgery Presence of coronary angioplasty implant and graft Social History household members: friend(s) Smoking Status: Former smoker pack-years: 30 Tobacco: How many years used: 30 how long ago did patient quit smoking: Quit 20+ years prior. alcohol intake: current alcohol intake frequency: holidays/special occasions only substance use type: does not use caffeine: Yes Type: coffee Number of servings: 2 ROS ROS Narrative Review of Systems: Constitutional: Patient denies fever or chills. Eyes: Patient denies change in vision or discharge from eyes. ENT: Patient denies runny nose, sore throat or ear pain. Resp: Patient denies shortness of breath or cough. CV: Patient denies chest pain, palpitations or heart racing. GI: Patient admits to chronic diarrhea but she denies abdominal pain, nausea or vomiting. : Patient denies dysuria or hematuria. MSK: Patient admits to severe Right hip pain with inability to ambulate after fall as per HPI. Skin: Patient admits to scalp hematoma and fracture of the metacarpal of the Right hand after recent fall as per HPI. She denies rash. Psych: Patient denies symptoms of uncontrolled depression or anxiety. Neuro: Patient has chronic Parkinson's disease with poor balance but she denies headache, paresthesias or focal neurologic deficits. Allergy: Patient denies lip swelling, tongue swelling or urticaria. Hematology: Patient denies easy bleeding or easy bruisability. Endocrinology: Patient denies polyuria, polydipsia, polyphagia or heat/cold intolerance. 14 point ROS otherwise negative except for positives noted above in HPI. Physical Exam Const alert, oriented x3, no apparent distress and average body habitus General Appearance: cooperative HEENT normocephalic, head/scalp atraumatic and hearing grossly normal bilaterally HEENT Narrative: Mucous membranes dry. Eyes PERRL, EOMs intact bilaterally and conjunctivae normal Neck no lymphadenopathy, supple and no JVD Resp normal respiratory effort, no retractions, no use of accessory muscles and clearto auscultation bilaterally Cardio regular rate and regular rhythm GI normal to inspection, nondistended, normoactive bowel sounds, soft to palpation,non-tender and non-distended Extremity Extremity Narrative: RLE shortened admixed internally rotated with positive logroll sign. Negative signs of neurovascular compromise with good pulses throughout. Skin Skin Narrative: Patient has bluish discoloration of skin but no rash. Neuro oriented x3, CN's II-XII intact bilaterally, moves all extremities and no focal motor deficits Sensorium / Orientation: awake, alert, oriented to person, oriented to place andoriented to time Speech: speech normal Psych affect normal Results Medical Records Data Attestation: I reviewed the patient's medical records Lab / Micro Data Attestation: I reviewed the patient's lab results. 01/20/25 02:05 01/20/25 02:05 Assessment & Plan Assessment/Plan (1) Closed hip fracture: QUALIFIERS: Encounter type: initial encounter Laterality: left Qualified Code(s): S72.002A - Fracture of unspecified part of neck of left femur,initial encounter for closed fracture (2) Scalp hematoma: QUALIFIERS: Encounter type: initial encounter Qualified Code(s): S00.03XA - Contusion of scalp, initial encounter (3) Metacarpal bone fracture: QUALIFIERS: Encounter type: initial encounter Metacarpal bone: unspecified metacarpal Fracture type: closed Fracture alignment: nondisplaced Metacarpal location: shaft Qualified Code(s): S62.359A - Nondisplaced fracture of shaft of unspecified metacarpal bone, initial encounter for closed fracture (4) Fall: QUALIFIERS: Encounter type: initial encounter Qualified Code(s): W19.XXXA - Unspecified fall, initial encounter (5) COVID-19: (6) History of Parkinson's disease: (7) Presence of stent in coronary artery: (8) Obesity (BMI 30.0-34.9): PLAN: Plan 1. Impacted Right intertrochanteric femoral neck fracture after Fall with ScalpHematoma and Metacarpal Fracture of Right hand - Admit to general medical floor. Keep n.p.o. for planned ORIF in AM. Give acetaminophen as needed for lqwz-cq-ansxczcn (level 1-5/10) pain or fever. Give morphine IV as needed for severe (level 6-10/10) pain. Finally, we will consult Dr. Tijerina of orthopedicsto see this patient on rounds in the a.m. with help appreciated in advance. 2. Recently diagnosed COVID-19 on nirmatrelvir-ritonavir complicating #1 - Current therapy to continue with patient not acutely ill or SOB. 3. Parkinson's disease; on carbidopa-levodopa 3 times daily with poor balance compounding #1 & #2 - Continue present treatment as before. 4. CAD; with RCA stent at [facility] in [place] (2009) and subsequent inferior wall ST elevation [place] s/p RCA stent with cardiogenic shock and cardiac arrest x 3 (2021) on baby aspirin daily adding to the medical complexity of #1 - #3 - Stable. Serialize troponin. 5. Obesity (class I); with BMI of 30.2 this admission adding to the burden of disease outlined from#1 - #4 - Weight loss will be recommended. Check TSH. This complicates her case and may hamper recovery. 6. Essential hypertension; currently not on treatment - Give hydralazine IV prnfor systolic blood pressure > 160 mmHg. 7. Hyperlipidemia; on atorvastatin - Maintain statin. 8. Former tobacco abuse; with subsequent COPD and pulmonary hypertension - Stable with no current evidence of acute flare. 9. History of nonrheumatic mitral/tricuspid valve insufficiency - Noted with recent echocardiogram done November 07, 2024 which revealed LVEF ~65% with diastolicfunction indeterminant and moderately-severe (3+) tricuspid valve insufficiency with trivial mitral valve insufficiency. 10. Fibromyalgia - Stable. 11. Depression; on duloxetine - Restart this agent when patient is cleared for oral intake. 12. History of argyria (bluish skin discoloration); attributed to taking colloidal silver for protracted period of time - Stable. 13. OAB; on mirabegron - Current therapy to continue after ORIF. 14. Chronic constipation; on polyethylene glycol daily plus simethicone twice daily as needed - Maintain bowel regimen. 15. History of gout; currently not on treatment - Stable with no evidence of acute flare. 16. Osteoporosis; on alendronate weekly - Resume this agent as outpatient. 17. OA; on celecoxib plus tramadol 3 times daily as needed - We will follow pain regimen and scalesoutlined in #1. 18. DVT prophylaxis - SCD on LLE only preoperatively with increased risk of bleeding complications in cases of traumatic fracture. Postoperative DVT prophylaxis to be decided upon by orthopod. Total time: Approximately (but not less than) 75 minutes. Charges/Coding Visit Charges Inpatient E&M: 19982 Init Hosp L3 01/20/25 0654 Cosigner Signature (if applicable): CC: Dr. Stephan Martel DO; Tressa Rosales~ Signed [facility]09-17-2025 Evaluation note* Diagnosis Onset Date Resolution Status Admit Date Nocturia acute December 12:46pm Overactive bladder acute 2024 12:46pm Urge incontinence acute Septemb er 2024 12:46pm Essential (primary) hypertension chronic December 28, 2024 12:46pm Parkinsons disease chronic 2024 12:46pm Closed hip fracture acute Octob er 2024 1:09am COVID-19 acute January 20, 2025 1:09am Fall acute January 20, 2025 1:09am History of Parkinson's disease acute January 20 1:09am Metacarpal bone fracture acute January 20, 2025 1:09am Nondisplaced fracture of base of fourth metacarpal bone, right hand, initia acute January 20, 2025 1:09am Obesity (BMI 30.0-34.9) acute O ctober 2024 1:09am Presence of stent in coronary artery December, acute January 20 1:09am Scalp hematoma acute January 202024 1:09am Subcapital fracture of right femur acute January 20 1:09am [facility] Work Phone: 1(418) 246-479806-17-2025 Evaluation note* Diagnosis Onset Date Resolution Status Admit Date 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 CAD (coronary artery disease) chroni c September 27, 2024 10:37am Essential (primary) hypertension chr onic September 27, 2024 10:37am Hyperlipidemia chronic September 27, 2024 10:37am Non-rheumatic mitral regurgitation chronic September 27, 2024 10:37am Parkinsons disease chronic September 112024 10:37am [facility] Work Phone: 1(707) 287-696506-17-2025 Evaluation note* Diagnosis Onset Date Resolution Status Admit Date 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 CAD (coronary artery disease) chroni c September 27, 2024 10:37am Essential (primary) hypertension chronic September 27, 2024 10:37am Hyperlipidemia chronic September 27, 2024 10:37am Non-rheumatic mitral regurgitation chronic September 27, 2024 10:37am Parkinsons disease chronic September 112024 10:37am Nocturia acute December 12:46pm Overactive bladder acute Sept2024 12:46pm Urge incontinence acute Sept er 2024 12:46pm Essential (primary) hypertension chronic December 28, 2024 12:46pm Parkinsons disease chronic 2024 12:46pm [facility] Work Phone: 1(514) 237-312206-17-2025 [facility] [address] [place] [address] OFFICE VISIT Date of Service: 09/27/24 MR#: [id number] Acct: [id number] Name: MONISHA COHN Rep #: [id number] : 1940 Provider: Dr. 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 Accompanied by: Is patient in [...] past year?: Yes (no major injuries; 2) [facility] Medical History Atherosclerotic heart disease of [place] coronary artery without angina pectoris Bladder spasms [...] Supplemental Info Supplemental Information ECHOCARDIOGRAM 12/23/21 @ [facility] Left ventricular ejection fraction is normal, estimated [...] tricuspid valve regurgitation Cath Intervention 12/20/09 @ [facility] Percutaneous coronary angioplasty and stenting of the right coronary artery withtwo drug eluting stents 2.5x30mm and 2.5x12mm Cath Intervention 12/22/21 @ [facility] Percutaneous coronary intervention in the right coronary artery with a 2.75x22 mm MIKKI drug elutingstent Assessment and Plan Assessment and Plan (1) CAD (coronary artery disease): Status: Chronic Plan: History of inferior [place]. History of drug-eluting stents placement to the RCA. Continue aspirin. Riskfactor modification. Check Lexiscan stress Myoview to evaluate [...] Cardiac Ejection fraction %: 55 09/27/24 1151 MD> Date _ Danielle Vernon MD Cosigner Signature: Date (if applicable) CC: Tressa Rosales ~ [facility]06-17-2025 Progress note Author Danielle Vernon [facility] Note Date/Time September 27, 2024 11:5 1am [facility] [place] [facility] [place] [id number] [facility] [place] [address] OFFICE VISIT Date of Service: 09/27/24 MR#: [id number] Acct: [id number] Name: MONISHA COHN Rep #: [id number] : 1940 Provider: Dr. 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 Accompanied by: Is patient in [...] past year?: Yes (no major injuries; 2) [facility] Medical History Atherosclerotic heart disease of [place] coronary artery without angina pectoris Bladder spasms [...] Supplemental Info Supplemental Information ECHOCARDIOGRAM 12/23/21 @ [facility] Left ventricular ejection fraction is normal, estimated [...] tricuspid valve regurgitation Cath Intervention 12/20/09 @ [facility] Percutaneous coronary angioplasty and stenting of the right coronary artery withtwo drug eluting stents 2.5x30mm and 2.5x12mm Cath Intervention 12/22/21 @ [facility] Percutaneous coronary intervention in the right coronary artery with a 2.75x22 mm MIKKI drug eluting stent Assessment and Plan Assessment and Plan (1) CAD (coronary artery disease): Status: Chronic Plan: History of inferior [place]. History of drug-eluting stents placement to the [...] Date (if applicable) CC: Tressa Rosales ~ [facility] Work Phone: [phone] Instructions* Patient Instructions* Armen Madison MD - [...] effects of this neuropathy. [facility] History of Present illness Narrative* Armen Madison MD - 07/29/2024 3:00 PM EDT [facility] [place] [facility] New Patient Visit Note Consultation requested by Em Flynn APRN.RUPALI for an opinion regarding neuropathy. My final [...] which included preparing to see the patient, [id number] patient care, completing clinical documentation, performing a medically appropriate examination, counseling and educating the patient/family/caregiver, and ordering medications, tests,or procedures. Armen Madison MD Neuromuscular Medicine (NM) [facility], [facility] [place] documented in this encounterHol[facility]04-18-2025 NoteHNO ID: [id number] Author: ARMEN MADISON MD Service: ? Author Type: Physician Type: Progress Notes Filed: 07/29/2024 15:33 Note Text: [facility] New Patient Visit Note Consultation [...] will be communicated to the patient via telephone/LiquidCompasshart. Patient to call office if not contacted after expected testing turnaround time. I spent a total of 34 minutes on the date of the service which included prepari (more content not included)...[facility]03-18-2025 Instructions* Patient Instructions* Em Flynn APRN.CNP - 06/28/2024 8:50 AM EDT It was [...] or you can send a message through SwingShot. You can also now schedule and select appointments through Swing[employer]ot. Em Flynn APRN.RUPALI documented in [facility] encounterHol[facility]03-18-2025 History of Present illness Narrative* Em Flynn APRN.RUPALI - 06/28/2024 8:00 AM EDT [facility] - FOLLOW UP EVALUATION The patient consented to the use of ambient Miyowa software for draft documentation of the visit consistent with [facility] s Notice of Privacy Practices. Alexandra Arreguin APRN.RUPALI [address] [address] Dear Alexandra Arreguin APRN.CNP: I had the [...] directives (living will and durable power of trademark attorney for healthcare): By Email: Send your document(s) to as an attachment in either PDF, TIFF, or JPEG format. By Mail: [facility] Information Management, [employer] Directive Processing [address] [place], [place] [address] By In person at any [facility] location Please note: You can use the address or fax number regardless of which [facility] you utilize, and we will make [...] to being in heaven due to her [employer] mark, which some people misinterpret as depression. [...] Adult) Pulse 76 Ht 157.5 cm (5' 2) Wt 70.5 kg (155 lb 6.4 oz) [...] c) the amplitude decrements startingafter the 1st hsev-yck-hycze sequence. Hand Movements Left 2-Mild. a) 3 [...] or around: 12/29/24 Level of service : 59198 (40-68 min). Time spent 59 min on the day of service, which included preparing to see the patient, [id number] patient care, completing clinical documentation, obtaining and/or reviewing separately obtained history, performing a medically appropriate examination, counseling and educating the patient/family/caregiver, and ordering medications, tests, or procedures. Em Flynn APRN.RUPALI documented in this encounterHolzer Hospital03-18-2025 NoteHNO ID: [id number] Author: EM FLYNN APRN.CNP Service: ? Author Type: Nurse Practitioner Type: Progress Notes Filed: 06/28/2024 23:22 Note Text: [facility] - FOLLOW UP EVALUATION The patient consented to the use of ambient Miyowa software for draft documentation of the visit consistent with [facility]?s Notice of Privacy Practices. Alexandra Arrgeuin APRN.CNP [address] [address] Dear Alexandra Arreguin APRN.RESIDUE FURNACE OPERATOR: I had the pleasure of seeing Ms. [...] directives (living will and durable power of trademark attorney for healthcare): By Email: Send your document(s) to as an attachment in either PDF, TIFF, or JPEG format. By Mail: [facility] Information Management, Ab7 Advance Directive Processing [address] [place], [place] [address] By In person at any [facility] location Please note: You can use the address or fax number regardless of which [facility] you utilize, and we will make [...] past who are n (more content not included)...[facility] 06-03-2024 Nuclear medicine Diagnostic study note [facility] Imaging Services [address] [place] [address] Hepatobilliary Img w/Pharm Int MR#: [id number] Acct: [id number] Name: MONISHA COHN Rep #: [id number] : 1940 F 84 From: Alejandro Tomlin MD PCP: Tressa Rosales Status: REG CLI Study:Hepatobilliary Img w/Pharm Int Date of Exam: 06/03/24 Exam# [id number] Ordering Dr: Deanna Lujan NP WELDER SETTER RESISTANCE MACHINE-C PROCEDURE: HEPATOBILLIARY IMG W/PHARM INT REASON FOR [...] SCAN AND GALLBLADDER EJECTION FRACTION. Reading Location: [place] [address] CC: Didi VAZQUEZ NP-Mariajose Lujan; Tressa Rosales ~ Learning Developer: Signed [facility]12-04-2024 Evaluation note* Diagnosis Onset Date Resolution Status Admit Date Argyria chronic March 16, 2024 8:48am CAD (coronary artery disease) chroni c March 16, 2024 8:48am Essential (primary) hypertension chronic March 16 8:48am Hyperlipidemia chronic March 162023 8:48am Non-rheumatic mitral regurgitation chronic March 16 8:48am Parkinsons disease chronic Dece 2023 8:48am [facility] Work Phone: 1(921) 497-650409-19-2024 Instructions* Patient Instructions* Em Flynn APRN.RESIDUE FURNACE OPERATOR - 12/31/2023 9:49 AM EDT It was [...] directives (living will and durable power of trademark attorney for healthcare): By Email: Send your document(s) to as an attachment in either PDF, TIFF, or JPEG format. By Mail: [facility] Information Management, Ab7 Advance Directive Processing [address] [place], [place] [address] By In person at any [facility] location Please note: You can use the address or fax number regardless of which [facility] you utilize, and we will make sure it is filed appropriately. Movement Disorders Medication Schedule: Medications 8AM 12PM 4PM 8PM Sinemet 25/100 2 1.5 1.5 1.5 Return at or around: 03/31/24 If there are any concerns before your next visit, please call or you can send a message through Swing[employer]. You can also now schedule and select appointments through [employer]. Em Flynn APRN.RUPALI documented in this encounterHolzer Hospital09-19-2024 History of Present illness Narrative* Em Flynn APRN.RUPALI - 12/31/2023 9:00 AM EDT [facility] - FOLLOW UP EVALUATION Alexandra Arreguin APRN.CNP [address] [facility] [address] [facility] [address] Dear Alexandra Arreguin APRN.CNP: I had the [...] Double vision: Please follow up with your tile and marble installer as scheduled Interested in clinical research? Not [...] other sensations: She is seen by an training specialist for her hip. Speech/Swallowing Speech problems: [...] Objective Vital Signs: Ht 157.5 cm (5' 2) LMP (LMP Unknown) SpO2 99% BMI 29.81 [...] c) the amplitude decrements startingafter the 1st wuya-gbc-gkyfw sequence. (She has a trigger finger) Hand [...] directives (living will and durable power of trademark attorney for healthcare): By Email: Send your document(s) to as an attachment in either PDF, TIFF, or JPEG format. By Mail: [facility] Information Management, Ab7 Advance Directive Processing [address] [place], [place] [address] By In person at any [facility] location Please note: You can use the address or fax number regardless of which [facility] you utilize, and we will make sure it is filed appropriately. Updated Movement Disorders Medication Schedule: Medications 8AM 12PM 4PM 8PM Sinemet 25/100 2 1.5 1.5 1.5 Return at or around: 03/31/24 Level of service : 92421 ( 30-39 min). Time spent 39 min on the day of service, which included preparing to see the patient, ezza-fp-moch patient care, completing clinical documentation, obtaining and/or reviewing separately obtained history, performing a medically appropriate examination, counseling and educating the patient/family/caregiver, and ordering medications, tests, or procedures. Em Flynn APRN.RUPALI documented in this encounterHolzer Hospital08-09-2024 Note* Letter - Coordinator, Mammography - 11/20/2023 10:34 AM EDT November 20, 2023 PID: [id number] Monisha Brink [address] [place] [address] Dear Ms. Cohn, We are pleased to [...] report will be kept on file at [facility] as part of your permanent medical record and are available for your continuing care. Thank you for allowing us to help in meeting your health care needs. Sincerely, Dr. George Interpreting Radiologist [facility] (Normal over 40) [facility]08-09-2024 Note* Letter - Coordinator, Mammography - 11/20/2023 10:34 AM EDT November 20, 2023 PID: [id number] Monisha Keena [address] [place] [address] Dear Ms. Cohn, We are pleased to [...] report will be kept on file at [facility] as part of your permanent medical record and are available for your continuing care. Thank you for allowing us to help in meeting your health care needs. Sincerely, Dr. George Interpreting Radiologist [facility] (Normal over 40) [facility]08-09-2024 Miscellaneous Notes* Letter - Coordinator, Mammography - 11/20/2023 10:34 AM EDT November 20, 2023 PID: [id number] Monisha Songtke [address] [place] [address] Dear Ms. Cohn, We are pleased to [...] report will be kept on file at [facility] as part of your permanent medical record and are available for your continuing care. Thank you for allowing us to help in meeting your health care needs. Sincerely, Dr. George Interpreting Radiologist [facility] (Normal over 40) * Letter - Coordinator, Mammography - 11/20/2023 10:34 AM EDT November 20, 2023 PID: [id number] Monisha Songtke [address] [place] [address] Dear Jorgito Cohn, We are pleased to inform you [...] report will be kept on file at [facility] as part of your permanent medical record and are available for your continuing care. Thank you for allowing us to help in meeting your health care needs. Sincerely, Dr. George Interpreting Radiologist [facility] (Normal over 40) documented in this encounterHolzer Hospital08-09-2024 History of Present illness Narrative* Chitra Larson Tech - 11/20/2023 7:45 AM EDT Radiology Service Progress Note PATIENT NAME: Monisha PANTOJAN: [id number] DATE OF SERVICE: November 20, 2023 TIME: [...] PATIENT PRESENTS WITH AN IMPLANTABLE OR ATTACHED ACID LOADER: No RADIOLOGY DEPARTMENT: Mammography PERIPHERAL IV DATA: Not applicable SIGNED BY: Valentin Manzanares November 20, 2023 9:23 AM documented in this encounterHolzer Hospital07-10-2024 Telephone encounter Note * Telephone Encounter - Rosie Cruz RN - 10/21/2023 10:01 AM EDT Received ClearSlideil 10-20-23 at 12:28 PM. Az this is Rissa at [facility]. Calling in regards to Monisha Cohn. 42. She gotan order from the orthopedic to do therapy which they have started but they wanted to know what wastorn and I believe Dr. Sheehan was the one who did the MRI, or read the MRI. If someone could fax us over the notes they would appreciate it. The fax number is [phone]. If you have any questions you can call me back at [phone]. Thank you. Last office visit note with Stephan Sheehan PA-C & imaging report faxed to [facility] PT department. [facility]07-10-[facility] Miscellaneous Notes* Telephone Encounter - Rosie Cruz RN - 10/21/2023 10:01 AM EDT Received voicemail 10-20-23 at 12:28 PM. Hi this is Rissa at [facility]. Calling in regards to Monisha Cohn. 42. She gotan order from the orthopedic to do therapy which they have started but they wanted to know what wastorn and I believe Dr. Sheehan was the one who did the MRI, or read the MRI. If someone could fax us over the notes they would appreciate it. The fax number is [phone]. If you have any questions you can call me back at [phone]. Thank you. Last office visit note with Stephan Sheehan PA-C & imaging report faxed to [facility] PT department. documented in this encounterHolzer Hospital07-05-2024 Telephone encounter Note * Telephone Encounter - Karolina Sanders RN - 10/16/2023 2:31 PM EDT Called back number and spoke with therapist. Told her Yara's note Range of motion and rotator cuffstrengthening Claudia Wood PA-C [facility] Work Phone: 1(350) 812-176207-05-2024 Miscellaneous Notes* Telephone Encounter - Karolina Sanders RN - 10/16/2023 2:31 PM EDT Called back number and spoke with therapist. Told her Yara's note Range of motion and rotator cuffstrengthening Claudia Wood PA-C * Telephone Encounter - Edwina Flanagan - 10/16/2023 10:02 AM EDT Patient is staying at a facility and is going physical therapy there. They were inquiring about what specific program needs to be done for the patient, please call facility at [phone], they alsoasked if we could send any office visit notes. documented in this encounterHolzer Hospital07-05-2024 Telephone encounter Note * Telephone Encounter - Edwina Flanagan - 10/16/2023 10:02 AM EDT Patient is staying at a facility and is going physical therapy there. They were inquiring about what specific program needs to be done for the patient, please call facility at [phone], they alsoasked if we could send any office visit notes. [facility]06-21-[facility] History of Present illness Narrative* Yury Jasso MD - 10/02/2023 8:54 AM EDTAssociated Order(s): Large Joint Arthro/Inj: L shoulder joint Post-Procedure Diagnose(s): Acute pain of left shoulder Images from the original note were not included. ORTHOPAEDIC SHOULDER & ELBOW SERVICE HISTORY & PHYSICAL EXAM REFERRING PROVIDER: Stephan Sheehan [address] [place], [place] [id number] CHIEF COMPLAINT: left shoulder pain PAIN EVALUATION 10/02/2023 0852 Pain Location: Shoulder-Left Description: Radiating;Aching;Sharp radiates to elbow, also to wrist Frequency: Continuous Intervention/Comfort measure: Heat;Medication;Reposition;Relaxation;Exercise tylenol, tramadol Comments: [facility] Monisha Cohn is a 83 year [...] negative Drop arm test: negative Biceps/bambi Signs Bond's test: positive Michael deformity: negative Speed's test: [...] REFERRING PHYSICIAN: The patient was referred to pa for consultation by the following physician. This consultation note will be sent to the following physician by either mail or electronic medical record. Stephan Sheehan [address] [place] [id number] Yury Jasso MD Shoulder & Elbow Surgeon Department of Orthopaedic Surgery [facility] documented in this encounterHolzer Hospital06-18-2024 History of Present illness Narrative* Kelly Stewart [...] PATIENT PRESENTS WITH AN IMPLANTABLE OR ATTACHED ACID LOADER: No RADIOLOGY DEPARTMENT: General X-ray: Exam(s) Completed: Upper Extremity X- Ray(s): Shoulder, TRUE AP/ AXILLARY / SUPRA OUTLET left PERIPHERAL IV DATA: Not applicable SIGNED BY: Valentin Siddiqui September 29, 2023 10:18 AM documented in this encounterHolzer Hospital06-18-2024 NoteHNO ID: [id number] Author: KELLY STEWART Tech Service: Radiology Author Type: Vegetable Picker Type: Progress Notes Filed: 09/29/2023 10:18 Note [...] PATIENT PRESENTS WITH AN IMPLANTABLE OR ATTACHED ACID LOADER: No RADIOLOGY DEPARTMENT: General X-ray: Exam(s) Completed: Upper Extremity X-Ray(s): Shoulder, TRUE AP / AXILLARY / SUPRA OUTLET left PERIPHERAL IV DATA: Not applicable SIGNED BY: Valentin Siddiqui September 29, 2023 10:18 AMMer[facility] [id number] Instructions* Patient Instructions* Em Flynn APRN.RESIDUE FURNACE OPERATOR - 09/29/2023 9:38 AM EDT It was [...] Double vision: Please follow up with your tile and marble installer as scheduled Interested in clinical research? Not currently Movement Disorders Medication Schedule: Medications 8AM 12PM 4PM 8PM Sinemet 25/100 2 1.5 1.5 1.5 Return at or around: 12/30/23 If there are any concerns before your next visit, please call or you can send a message through SwingShot. You can also now schedule and select appointments through SwingShot. Em Flynn APRN.RUPALI documented in this encounterHolzer Hospital06-18-2024 History of Present illness Narrative* Em Flynn APRN.CNP - 09/29/2023 9:00 AM EDT [facility] - FOLLOW UP EVALUATION Alexandra Arreguin APRN.RESIDUE FURNACE OPERATOR [address] [address] Dear Alexandra Arreguin APRN.RESIDUE FURNACE OPERATOR: I had the pleasure of seeing Ms. [...] 10points or more) please discuss with your press washer. Hallucinations: I am hoping that the reduction in Sinemet helps these, but if it does not and they are bothering you, please let me know. Dysphagia (difficulty swallowing): I am ordering speech therapy for this and your quiet speech Double vision: Please follow up with your tile and marble installer Left arm pain/numbness and tingling: I have [...] them. These started before she moved to [place] and after she had her heart attack while in the hospital. Apathy: no She has motivation and is trying really hard to get out of the facility and move back [facility]. Impulse control disorder: No Palliative Concerns: Caregiver burden: Spiritual concerns: No Advanced directives on file: No I offered a SW consult but she wants to wait until she moves back to [place]. Palliative services: Therapy and Exercise: Last PT [...] Pulse (!) 58 Ht 157.5 cm (5' 2) Wt 73.9 kg (163 lb) LMP (LMP Unknown) SpO2 98% BMI 29.81 kg/m Orthostatic Vitals: None for this encounter No LMP recorded (lmp unknown). Patient has had a hysterectomy. Body mass index is 29.81 kg/m . Movement Disorders Scales Performed: MDS-UPDRS Motor subscale condition of exam Medication Off/On/Naiive ON Time of UPDRS 0930 Time of Last Medication 0730 Last Medication Taken Sinemet 25/100, 1.5 tab [...] the amplitude decrements starting after the 1st ltdu-miq-dkznq sequence. Arm Movements Right 1-Slight. a) the [...] Double vision: Please follow up with your tile and marble installer as scheduled Interested in clinical research? Not currently Updated Movement Disorders Medication Schedule: Medications 8AM 12PM 4PM 8PM Sinemet 25/100 2 1.5 1.5 1.5 Return at or around: 12/30/23 Level of service : 10266 ( 30-39 min). Time spent 37 min on the day of service, which included preparing to see the patient, jbxu-uz-bjzg patient care, completing clinical documentation, obtaining and/or reviewing separately obtained history, performing a medically appropriate examination, counseling and educating the patient/family/caregiver, and ordering medications, tests, or procedures. Em Flynn APRN.RESIDUE FURNACE OPERATOR documented in this encounterHolzer Hospital06-12-2024 NoteIMPRESSION: INCOMPLETE: NEEDS ADDITIONAL IMAGING EVALUATION Probable benign nodule retroareolar region LEFT breast found using tomosynthesis today. Benign-appearing asymmetric glandular tissue upper outer aspect LEFT breast. Ultrasound correlation will be performed. LIMITED ULTRASOUND OF LEFT BREAST: 09/23/2023 RESULT: Comparison is made to exam dated: 08/13/2023 [facility]. Ultrasound of was performed. Imaging was [...] screening schedule is recommended. Ajay Bullock M.D. [facility]/gi:09/23/2023 10:55:35 Multiple national specialty organizations have released breast cancer screening guidelines for women at average risk for developing breast cancer - guidelines that are based on both evidence and opinion, yet differ on when to start and how often to screen for breast cancer. With representation from Breast Imaging, Internal Medicine, Women's Health, Family Medicine, and Medical/Surgical Oncology, the [facility] has carefully reviewed the data and reached [...] their providers when to stop screening mammograms. Medical Social Worker(s): RT Yumiko(R)(Tonie), [facility]; RT Nicole(R), [facility] OVERALL STUDY BIRADS: 2 Benign finding Learning Developer: Gi Transcribe Date/Time: Sep 23 2023 9:21A Dictated by : AJAY BULLOCK MD This examination was interpreted and the report reviewed and electronically signed by: AJAY BULLOCK MD on Sep 23 2023 10:55AM [facility] [id number] History of Present illness Narrative* Tiago Mcnamara CT - 09/23/2023 9:20 AM EDT Radiology Service [...] to prevent falls during this visit? [place] Risk Wristband Applied, Instructed Patient to Call for Help if Needed, Offered Assistance with Transfers/Clothing, Instructed Patient to Remain Seated (Not on Exam Table) Until Exam, and wheelchair. PATIENT GENDER DATA: Female. status: : No status: NO. PATIENT RELEVANT IMPLANT DATA REVIEWED: Not Applicable PATIENT PRESENTS WITH AN IMPLANTABLE OR ATTACHED ACID LOADER: No RADIOLOGY DEPARTMENT: Mammography PERIPHERAL IV DATA: [...] to prevent falls during this visit? [place] Risk Wristband Applied PATIENT GENDER DATA: Female. status: : No status: NO. PATIENT RELEVANT IMPLANT DATA REVIEWED: Not Applicable PATIENT PRESENTS WITH AN IMPLANTABLE OR ATTACHED ACID LOADER: No RADIOLOGY DEPARTMENT: Ultrasound PERIPHERAL IV DATA: Not applicable SIGNED BY: Virginie Rios RDMS September 23, 2023 10:39 AM documented in this encounterHolzer Hospital06-12-2024 NoteHNO ID: [id number] Author: TIAGO MCNAMARA CT Service: Radiology Author [...] to prevent falls during this visit? [place] Risk Wristband Applied, Instructed Patient to Call for Help if Needed, Offered Assistance with Transfers/Clothing, Instructed Patient to Remain Seated (Not on Exam Table) Until Exam, and wheelchair. PATIENT GENDER DATA: Female. status: : No status: NO. PATIENT RELEVANT IMPLANT DATA REVIEWED: Not Applicable PATIENT PRESENTS WITH AN IMPLANTABLE OR ATTACHED ACID LOADER: No RADIOLOGY DEPARTMENT: Mammography PERIPHERAL IV DATA: Not applicable SIGNED BY: RT Yumiko September 23, 2023 9:42 [facility]Rbgoqsno01-50-9761 NoteHNO ID: [id number] Author: VIRGINIE RIOS RDMS Service: Radiology Author Type: Gym Teacher Type: Progress Notes Filed: 09/23/2023 10:39 Note [...] to prevent falls during this visit? [place] Risk Wristband Applied PATIENT GENDER DATA: Female. status: : No status: NO. PATIENT RELEVANT IMPLANT DATA REVIEWED: Not Applicable PATIENT PRESENTS WITH AN IMPLANTABLE OR ATTACHED ACID LOADER: No RADIOLOGY DEPARTMENT: Ultrasound PERIPHERAL IV DATA: Not applicable SIGNED BY: Virginie Rios RDMS September 23, 2023 10:39 [facility] [id number] Telephone encounter Note* Telephone Encounter - Mary Ann Villalobos - 09/02/2023 1:18 PM EDT Received call from Rissa at [facility]. Patient would like to complete Physical Therapy on-site at the facility. Order for PT faxed to their facility via [employer]. Mary Ann Villalobos [facility]05-22-[facility]24 Miscellaneous Notes* Telephone Encounter - Mary Ann Villalobos - 09/02/2023 1:18 PM EDT Received call from Rissa at [facility]. Patient would like to complete Physical Therapy on-site at the facility. Order for PT faxed to their facility via [employer]. Mary Ann Villalobos documented in this encounterHolzer Hospital05-16-2024 History of Present illness Narrative* Stephan Sheehan PA-C - 08/27/2023 1:40 PM EDT Images from the original note were not included. Stephan Sheehan PA-C [facility] [address] [place] [address] 08/27/2023 ASSESSMENT AND PLAN: Assessment : Encounter [...] today with this patient visit. This includes clls-yg-szeg time, review of chart records regarding conservative care history, spine- pertinent imaging, and communication/care coordination with referring provider, problem-specific history-taking and counseling/education regarding treatment options. cc: Em Flynn [address] [address] Results of consultation to be transmitted via electronic medical record for those providers who practice within [facility] or with access to [employer] via MD Connect, or via letter. ######################################################################## CHIEF COMPLAINT: Neck Pain and Left arm Pain HPI: See Discussiuon above History of bowel or bladder dysfunction [...] resp. rate 18, height 157.5 cm (5' 2), weight 74.7 kg (164 lb 10.9 oz), [...] L: 5/5 Triceps R: 5/5 L: 4/5 Freight Brakeman R: 5/5 L: 5/5 Interossei R: +4/5 [...] STUDIES: See discussion above documented in this encounterHolzer Hospital05-03-2024 Note* Letter - Coordinator, Mammography - 08/14/2023 11:00 AM EDT August 14, 2023 PID: [id number] Monisha Cohn [address] [place] [address] Dear Ms. Cohn, Your recent breast imaging [...] so).Additional Imaging cannot be self scheduled in [employer]. If you DO NOT have a healthcare provider (ie you did not have an order/prescription for your screening mammogram): Please call to schedule an appointment for your additional imaging (if you have not already done so). Additonal Imaging cannot be self scheduled in [employer]. This exam cannot be self scheduled in [employer]. You must have an order/prescription from your physician when calling to schedule your appointment. If your order/prescription is not electronic, you must bring the hard copy with you on the day of your exam Your imaging studies and reports are kept on file at [facility] as part of your permanent medical record, and are available for your continuing care. Thank you for allowing us to help in meeting your health care needs. Sincerely, Dr. Castellanos Interpreting Radiologist [facility] (Additional imaging) [facility]05-03-2024 Miscellaneous Notes* Letter - Coordinator, Mammography - 08/14/2023 11:00 AM EDT August 14, 2023 PID: [id number] Monisha Songtke [address] [place] [address] Dear Ms. Cohn, Your recent breast imaging [...] so).Additional Imaging cannot be self scheduled in [employer]. If you DO NOT have a healthcare provider (ie you did not have an order/prescription for your screening mammogram): Please call to schedule an appointment for your additional imaging (if you have not already done so). Additonal Imaging cannot be self scheduled in [facility]. This exam cannot be self scheduled in [facility]. You must have an order/prescription from your physician when calling to schedule your appointment. If your order/prescription is not electronic, you must bring the hard copy with you on the day of your exam Your imaging studies and reports are kept on file [facility] as part of your permanent medical record, and are available for your continuing care. Thank you for allowing us to help in meeting your health care needs. Sincerely, Dr. Castellanos Interpreting Radiologist [facility] (Additional imaging) documented in this encounterHolzer [facility] History of Present illness Narrative* Tiago Mcnamara [...] PATIENT PRESENTS WITH AN IMPLANTABLE OR ATTACHED ACID LOADER: No RADIOLOGY DEPARTMENT: Bone Density and Mammography PERIPHERAL IV DATA: Not applicable SIGNED BY: ANCA López August 13, 2023 2:15 PM documented in this encounterHolzer Hospital05-02-2024 NoteHNO ID: [id number] Author: TIAGO MCNAMARA CT Service: Radiology Author [...] PATIENT PRESENTS WITH AN IMPLANTABLE OR ATTACHED ACID LOADER: No RADIOLOGY DEPARTMENT: Bone Density and Mammography PERIPHERAL IV DATA: Not applicable SIGNED BY: ANCA López August 13, 2023 2:15 PMMer[facility] [id number] Telephone encounter Note* Telephone Encounter - Em Flynn APRN.RESIDUE FURNACE OPERATOR - 08/03/2023 6:17 PM EDT I called and reviewed her results with her and let her know that I did communicate with a spine medicine provider who also reviewed her cervical spine MRI. He recommended that she start with spine medicine so I will have our schedulers call to set this up. She said they need to arrange this with Rissa at the [facility] as this is the individual who would drive her to her appointments. [facility]04-22-2024 Miscellaneous Notes* Telephone Encounter - Em Flynn [...] to arrange this with Rissa at the [facility] as this is the individual who would drive her to her appointments. STONE Lockhart documented in this encounterHolzer Hospital03-25-2024 Instructions* Patient Instructions* Em Flynn APRN.CNP - [...] 10points or more) please discuss with your press washer. Date/Time BP Sitting Heart Rate Sitting BP Standing Heart Rate Standing Hallucinations: I am hoping that the reduction in Sinemet helps these, but if it does not and they are bothering you, please let me know. Dysphagia (difficulty swallowing): I am ordering speech therapy for this and your quiet speech Vision changes: Please follow up with your tile and marble installer. Left arm pain/numbness and tingling: I have ordered a neck MRI. Movement Disorders Medication Schedule: Medications 8AM 12PM 4PM 8PM Sinemet 25/100 2 1.5 1.5 1.5 Return in about 3 months (around 10/06/2023). If there are any concerns before your next visit, please call or you can send a message through [employer]. You can also now schedule and select appointments through [employer]. Em Flynn APRN.RUPALI documented in this encounterHolzer Hospital03-25-2024 History of Present illness Narrative* Em Flynn APRN.CNP - 07/06/2023 8:22 AM EDT [facility] - FOLLOW UP EVALUATION Alexandra Arreguin APRN.RESIDUE FURNACE OPERATOR [address] [address] Dear Alexandra Arreguin APRN.CNP: I had the [...] points or more) please discuss with your press washer. Date/Time BP Sitting Heart Rate Sitting BP [...] They still want to move back to [place]. She was discharged from physical therapy. She [...] them. These started before she moved to [place] and after shehad her heart attack while in the hospital. Apathy: no She has motivation and is trying really hard to get out of the facility. Impulse control disorder: No Palliative Concerns: Caregiver burden: Spiritual concerns: No Advanced directives on file: No I offered a SW consult but she wants to wait until she moves back to [place]. Palliative services: Therapy and Exercise: Last PT Date: June 2023 Last OT Date: ST Date: Exercises Regularly: Yes She walks [...] the amplitude decrements starting after the 1st [id number] sequence. Arm Movements Right 1-Slight. a) the [...] 10points or more) please discuss with your press washer. Date/Time BP Sitting Heart Rate Sitting BP Standing Heart Rate Standing Hallucinations: I am hoping that the reduction in Sinemet helps these, but if it does not and they are bothering you, please let me know. Dysphagia (difficulty swallowing): I am ordering speech therapy for this and your quiet speech Vision changes: Please follow up with your tile and marble installer. Left arm pain/numbness and tingling: I have ordered a neck MRI. Updated Movement Disorders Medication Schedule: Medications 8AM 12PM 4PM 8PM Sinemet 25/100 2 1.5 1.5 1.5 Level of service : 25240 (40-54 min). Time spent 45 min on the day of service, which included preparing to see the patient, [id number] patient care, completing clinical documentation, obtaining and/or reviewing separately obtained history, performing a medically appropriate examination, counseling and educating the patient/family/caregiver, and ordering medications, tests, or procedures. Em Flynn APRN.RESIDUE FURNACE OPERATOR documented in this encounterHolzer Hospital01-19-2024 Discharge summary Author Law Gold [facility] May 01, 2023 4:21pm Note Date/Time May 01, 2023 1 :42pm [facility] Medical Records Department [address] [place] [address] Emergency Department Summary 05/01/23 MR#: [id number] Acct: [id number] Name: MONISHA COHN Rep #:[id number] 9 : 1940 83 From: Law Longoria [...] any other injuries. Patient denies any lacerations. [facility] Medical History Atherosclerotic heart disease of [place] coronary artery without angina pectoris Bladder spasms [...] motor deficits and no sensory deficits noted Otis Coma Scale: document GCS findings Spontaneous Obeys [...] % (Auto) 62.2 Lymph % (Auto) 19.9 Villalba % (Auto) 11.6 H Eos % (Auto) [...] Alexandra Arreguin NP Referrals: Alexandra Arreguin NP, WELDER SETTER RESISTANCE MACHINE-C [Primary Care Provider] - 5-7 Days Disposition Disposition: Home, Self Care What to do if you have Problems For any increased pain, shortness of breath, bleeding, nausea or vomiting, chestpain, or any unexpected problems, contact your Primary Care Provider. Call [facility] ([phone]) or report to the closest Emergency Room. Call 911 if necessary. 05/01/23 1621 <Electronically signed by Law Gold DO> Cosigner Signature (if applicable): CC: WELDER SETTER RESISTANCE MACHINE-C Alexandra Arreguin ~ Signed [facility] Work Phone: 1([phone]) 841-826510-27-2023 Discharge summary Author Darline Lundy [facility] February 06, 2023 2:09pm Note Date/Time February 06, 2023 1 2:33pm [facility] Medical Records Department [address] [place] [address] Transfer to [facility] MR#: [id number] Acct: [id number] Name: MONISHA CONH Rep #:[id number] 4 : 1940 82 From: Darline Lundy MD PCP: JACQUI Ann Status:ADM IN Certification of patient admission REQUIRED AT TIME OF ADMISSION. I CERTIFY THAT POST-HOSPITAL ECF SERVICES ARE REQUIRED TO BE GIVEN ON AN IN-PATIENT BASIS BECAUSE OF THE ABOVE NAMED PATIENT'S NEED FOR HALFWAY CARE ON A CONTINUING BASIS FOR THE CONDITION(S) FOR WHICH HE/SHE WAS RECEIVING IN-PATIENT HOSPITAL SERVICES PRIOR TO HIS/HER TRANSFER TO THE F. 02/06/23 1233<Electronically signed by Darline Lundy MD> [...] following with Urology, Gout, Fibromyalgia, Hx usage silver water with chronically silver skin hue, Obesity who presents to the [facility] on 02/01/23 with history of mechanical [...] - Active Staff] - 02/18/23 Alexandra Arreguin WELDER SETTER RESISTANCE MACHINE, WELDER SETTER RESISTANCE MACHINE-C [Primary Care Provider] - Disposition Disposition (needs filled in before D/C Order can be placed): Halfway Facility (1) Closed hip fracture Qualifiers: Encounter type: initial encounter Laterality: left Qualified Code(s): S72.002A - Fracture of unspecified part of neck of left femur, initial encounterfor closed fracture 02/06/23 1233 <Electronically signed by Darline Lundy MD> Cosigner Signature (if applicable): CC: WELDER SETTER RESISTANCE MACHINE-C Alexandra Arreguin; Dr. Jasmin Steele MD; Dr. Davian Grier DO ~ ADDENDUM by Dr. Darline Lundy MD on 02/06/23 at 1409 Addendum COREG STOPPED D/T BP STILL BEING ON LOW SIDE, PT ASYMPTOMATIC HOWEVER, NO OTHER CHANGES MADE 02/06/23 1409 <Electronically signed by Darline Lundy MD> cc: WELDER SETTER RESISTANCE MACHINE-Mariajose Arreguin; Dr. Jasmin Steele MD; Dr. Davian Grier DO ~* Signed [facility] Work Phone: 1(645) 216-668410-27-2023 Discharge summary Author Darline Lundy [facility] February 06, 2023 2:09pm Note Date/Time February 06, 2023 1 2:35pm [facility] Medical Records Department [address] [place], [place] [address] [address] Discharge Summary 02/06/23 1234 MR#: [id number] Acct: [id number] Name: MONISHA COHN Rep #:[id number] : 1940 82 From: Darline Lundy MD PCP: JACQUI Ann Status:ADM IN Location: [facility] NG452-1 Providers Date of Admission: 02/01/23 Date of [...] following with Urology, Gout, Fibromyalgia, Hx usage silver water with chronically silver skin hue, Obesity who presents to the [facility] on 02/01/23 with history of mechanical [...] following with Urology, Gout, Fibromyalgia, Hx usage silver water with chronically silver skin hue, Obesity who presents to the [facility] on 02/01/23 with history of mechanical [...] % (Auto) 55.6, Lymph % (Auto) 30.5, Villalba % (Auto) 10.2 H, Eos % (Auto) [...] Active Staff] - 02/18/23 Alexandra Arreguin NP, WELDER SETTER RESISTANCE MACHINE-C [Primary Care Provider] - Disposition Disposition (needs filled in before D/C Order can be placed): Halfway Facility Charges/Coding Visit Charges Inpatient E&M: 29507 Disch Hosp >30min 02/06/23 1235 <Electronically signed by Darline Lundy MD> Cosigner Signature (if applicable): CC: JACQUI Arreguin; Dr. Darline Lundy MD~ Signed ADDENDUM by Dr. Darline Lundy MD on 02/06/23 at 1409 Addendum COREG STOPPED D/T BP STILL BEING ON LOW SIDE, PT ASYMPTOMATIC HOWEVER, NO OTHER CHANGES MADE 02/06/23 1409<Electronically signed by Darline Lundy MD> Cosigner Signature (if applicable): cc: JACQUI Arreguin; Dr. Darline Lundy MD ~* Signed [facility] Work Phone: 1(296) 630-612010-26-2023 Progress note Author Darline Lundy [facility] February 05, 2023 5:07pm Note Date/Time February 05, 2023 4 :55pm [facility] Medical Records Department [address] [place] [address] [place] [address] Progress Note - Hospitalist 02/05/23 1651 MR#: [id number] Acct: [id number] Name: MONISHA COHN Rep #:[id number] 6 : 1940 82 From: Darline Lundy MD PCP: Alexandra Arreguin, WELDER SETTER RESISTANCE MACHINE-C Status:ADM IN Location: [facility] TF299-4 Reason for Visit Reason for Visit: Diagnoses [...] (Auto) 67.7, Lymph % (Auto) 18.8 L, Villalba % (Auto) 11.3 H, Eos % (Auto) [...] DVT prophylaxis in addition SCDs and BELEN hose -02/04: Hemoglobin stable status posttransfusion, resume aspirin [...] documentation, 26minutes Charges/Coding Visit Charges Inpatient E&M: 35101 Subs Hosp L1 02/05/23 1707 <Electronically signed by Darline Lundy MD> Cosigner Signature (if applicable): CC: ~ Signed [facility] Work Phone: 1(597) 415-574810-25-2023 Progress note Author Darline Lundy [facility] February 04, 2023 8:56am Note Date/Time February 04, 2023 7 :12am [facility] Medical Records Department [address] [place] [address] Progress Note - Hospitalist 02/04/23 0710 MR#: [id number] Acct: [id number] Name: MONISHA COHN Rep #:[id number] 6 : 1940 82 From: Darline Lundy MD PCP: Alexandra Arreguin, WELDER SETTER RESISTANCE MACHINE-C Status:ADM IN Location: MS3 UF937-4 Reason for Visit Reason for Visit: Diagnoses [...] 70.8 H, Lymph % (Auto) 15.0 L, Villalba % (Auto) 12.4 H, Eos % (Auto) [...] DVT prophylaxis in addition SCDs and BELEN mickeye -02/04: Hemoglobin stable status posttransfusion, resume aspirin [...] documentation, 40minutes Charges/Coding Visit Charges Inpatient E&M: 41896 Subs Hosp L2 02/04/23 0856 <Electronically signed by Darline Lundy MD> Cosigner Signature (if applicable): CC: ~ Signed [facility] Work Phone: 1([phone]) 387-698510-24-2023 Progress note Author Darline Lundy [facility] February 03, 2023 10:04am Note Date/Time February 03, 2023 7 :22am [facility] Medical Records Department [address] [place] [address] Progress Note - Hospitalist 02/03/23 0717 MR#: [id number] Acct: [id number] Name: MONISHA COHN Rep #:[id number] 2 : 1940 82 From: Darline Lundy MD PCP: JACQUI Ann Status:ADM IN [facility] Reason for Visit Reason for Visit: Diagnoses [...] 71.1 H, Lymph % (Auto) 14.6 L, Villalba % (Auto) 13.2 H, Eos % (Auto) [...] postop from left femur CMN with Dr. Spittle. PT/OT, weightbearing as tolerated left lower extremities. [...] documentation, 40minutes Charges/Coding Visit Charges Inpatient E&M: 19945 Subs Hosp L2 02/03/23 1004 <Electronically signed by Darline Lundy MD> Cosigner Signature (if applicable): CC: ~ Signed [facility] Work Phone: 1(232) 906-178910-24-2023 Progress note Author Jaylon Boone [facility] February 03, 2023 7:05am Note Date/Time February 03, 2023 7 :05am [facility] Medical Records Department [facility] [place] [address] Progress Note - Hospitalist 02/03/23 07 MR#: [id number] Acct: [id number] Name: MONISHA COHN Rep #:[id number] 4 : 1940 82 From: Jaylon Fontana PCP: JACQUI Ann Status:ADM IN Location: [place] [address] Hospitalist Note Since hemoglobin dropped from 9.1-5.6 after surgery. Most likely acute blood loss after surgery, postop anemia. Units PRBC type and crossmatch and transfuseslowly. Patient had a STEMI in December 2021. Aspirin hold. Plavix currentlydiscontinued but informed the attending and might resume when bleeding is stable. 02/03/23704 <Electronically signed by Jaylon Boone MD> Cosigner Signature (if applicable): CC: ~ Signed [facility] Work Phone: 1(271) 125-460410-24-2023 Progress note Author Davian Grier [facility] February 03, 2023 6:03am Note Date/Time February 03, 2023 6 :03am [facility] Medical Records Department [address] [place] [address] Progress Note - Orthopedic 02/03/23 0601 MR#: [id number] Acct: [id number] Name: MONISHA COHN Rep #:[id number] 1 : 1940 82 From: Davian besaley DO PCP: JACQUI Ann Status:ADM IN Location: [place] [address] Subjective Subjective Patient seen and examined. Pain [...] % (Auto) 62.1, Lymph % (Auto) 25.2, Villalba% (Auto) 11.7 H, Eos % (Auto) 0.3, [...] - DVT PPX -Multimodal with SCDs, BELEN mickeye, early mobilization, aspirin and Plavix -Dry sterile [...] Cosigner Signature (if applicable): CC: ~ Signed [facility] Work Phone: 1([phone]) 921-283210-24-2023 Discharge summary Author Law Gold [facility] February 03, 2023 12:29am Note Date/Time February 01, 2023 2 :21pm [facility] Medical Records Department [address] [place] [address] Emergency Department Summary 02/01/23 MR#: [id number] Acct: [id number] Name: MONISHA COHN Rep #:[id number] 7 : 1940 82 From: Niko OSMAN PCP: Alexandra Arreguin, WELDER SETTER RESISTANCE MACHINE-C Status:ADM IN Location: MS3 QS473-2 [facility] <JACQUI Cano - Last Filed: 02/01/23 15:12> History of Present Illness Chief Complaint: Fall Narrative Narrative: Patient is a 82-year-old female with history of Parkinson disease, CAD, [place] who presents to the emergency department after [...] does live with her and her daughter [facility] <JACQUI Cano - Last Filed: 02/01/23 15:12> [facility] Medical History Atherosclerotic heart disease of [place] coronary artery without angina pectoris Bladder spasms [...] Negative for any eczema, hives, rash EXAM <Niko LorenzJACQUI - Last Filed: 02/01/23 15:12> Physical Exam [...] Method Room Air Room Air <Dr. Law Gold, DO - Last Filed: 02/01/23 15:58> Physical Exam Const Vital Signs: 02/01/23 13:44 02/01/23 13:50 Temperature 98.4 F Temperature Source Temporal Pulse Rate 77 Respiratory Rate 20 H Respiratory Effort Normal Non-Labored Respiratory Depth Normal Respiratory Pattern Normal Blood Pressure 165/79 H Blood Pressure Mean 107 Pulse Ox 99 Oxygen Delivery Method Room Air Room Air [facility] <JACQUI Cano - Last Filed: 02/01/23 15:12> [facility] Lab Data Labs: Laboratory Results - last 24 hr 02/01/23 14:05 WBC 4.8 RBC 3.93 L Hgb 10.8 L Hct 35.2 L MCV 89.6 MCH 27.5 MCHC 30.7 L RDW Std Deviation 41.8 RDW Coeff of Aleena 12.6 Plt Count 255 MPV 8.7 Immature Gran % (Auto) 0.200 Neut % (Auto) 60.2 Lymph % (Auto) 28.0 Villalba % (Auto) 8.9 Eos % (Auto) 1.7 [...] 14:52 EDT Reading Location ID and State: [id number] / [employer] , Service support , Chest X-Ray 02/01/23 14:00 IMPRESSION: Normal x-ray examination of the chest. Electronically Signed: Chun Martinez MD at 14:53 EDT , Femur X-Ray 02/01/23 14:00 IMPRESSION: Acute distracted fracture of the intertrochanteric left femur. Electronically Signed: Chun Martinez MD at 14:55 EDT Reading Location ID and State: 5327 / [employer] , Service support , Pelvis X-Ray 02/01/23 14:00 IMPRESSION: Acute distracted fracture of the intertrochanteric left femur. Electronically Signed: Chun Martinez MD at 14:54 EDT Reading Location ID and State: 1407 / [employer] , Service support , Elbow X-Ray 02/01/23 15:12 IMPRESSION: Normal x-ray examination of the elbow. Electronically Signed: Chun Martinez MD at 15:29 EDT Reading Location ID and State: 1177 / [employer] , Service support , EKG EKG shows a normal sinus rhythm: Attestation: I personally reviewed and interpreted this EKG as follows: Comments: Normal sinus rhythm, rate of 71 bpm, ND 150 ms, QRS duration 68 ms. No [...] Gold, DO - Last Filed: 02/01/23 15:58> [facility] Narrative Medical decision making narrative: I have [...] % (Auto) 60.2 Lymph % (Auto) 28.0 Villalba % (Auto) 8.9 Eos % (Auto) 1.7 [...] 14:52 EDT Reading Location ID and State: [employer] , Service support , Chest X-Ray 02/01/23 14:00 IMPRESSION: Normal x-ray examination of the chest. Electronically Signed: Chun Martinez MD at 14:53 EDT Reading Location ID and State: [employer] , Service support , Femur X-Ray 02/01/23 14:00 IMPRESSION: Acute distracted fracture of the intertrochanteric left femur. Electronically Signed: Chun Martinez MD at 14:55 EDT Reading Location ID and State: [employer] , Service support , Pelvis X-Ray 02/01/23 14:00 IMPRESSION: Acute distracted fracture of the intertrochanteric left femur. Electronically Signed: Chun Martinez MD at 14:54 EDT Reading Location ID and State: [employer] , Service support , Elbow X-Ray 02/01/23 15:12 IMPRESSION: Normal x-ray examination of the elbow. Electronically Signed: Chun Martinez MD at 15:29 EDT Reading Location ID and State: [employer] , Service support , Discharge Plan Triage Chief Complaint: Fall [...] your Primary Care Provider. Call [facility] ([phone]) or report to the closest Emergency Room. Call 911 if necessary. 02/02/232110 <Electronically signed by Niko LANDAC> Cosigner Signature (if applicable): 02/03/23 0029 <Electronically signed by Law Gold DO> CC: WELDER SETTER RESISTANCE MACHINE-C Alexandra Arreguin ~ Signed [facility] Work Phone: 1([phone]) 808-207110-23-2023 Procedure [facility] 02-02-2023 Progress note Author Darline Lundy [facility] February 02, 2023 10:59am Note Date/Time February 02, 2023 7 :44am [facility] Medical Records Department [address] [place] [address] Progress Note - Hospitalist 02/02/23 0739 MR#: [id number] Acct: [id number] Name: MONISHA COHN Rep #:[id number] 1 : 1940 82 From: Darline Lundy MD PCP: JACQUI Ann Status:ADM IN Location: [place] [address] Reason for Visit Reason for Visit: Diagnoses [...] % (Auto) 60.2, Lymph % (Auto) 28.0, Villalba% (Auto) 8.9, Eos % (Auto) 1.7, Baso [...] % (Auto) 62.1, Lymph % (Auto) 25.2, Villalba% (Auto) 11.7 H, Eos % (Auto) 0.3, [...] 14:52 EDT Reading Location ID and State: [employer] , Service support , Chest X-Ray 02/01/23 14:00 IMPRESSION: Normal x-ray examination of the chest. Electronically Signed: Chun Martinez MD at 14:53 EDT Reading Location ID and State: [employer] , Service support , Femur X-Ray 02/01/23 14:00 IMPRESSION: Acute distracted fracture of the intertrochanteric left femur. Electronically Signed: Chun Martinez MD at 14:55 EDT Reading Location ID and State: [employer] , Service support , Pelvis X-Ray 02/01/23 14:00 IMPRESSION: Acute distracted fracture of the intertrochanteric left femur. Electronically Signed: Chun Martinez MD at 14:54 EDT , Elbow X-Ray 02/01/23 15:12 IMPRESSION: Normal x-ray examination of the elbow. Electronically Signed: Chun Martinez MD at 15:29 EDT , Physical Exam Narrative General: Alert, [...] documentation, 36minutes Charges/Coding Visit Charges Inpatient E&M: 34337 Subs Hosp L2 02/02/23 1059 <Electronically signed by Darline Lundy MD> Cosigner Signature (if applicable): CC: ~ Signed [facility] Work Phone: 1(897) 317-504310-22-2023 Progress note Author [facility] Paolo [facility] February 01, 2023 9:42pm Note Date/Time February 01, 2023 9 :42pm [facility] Medical Records Department [address] [facility] [place] [address] Progress Note - Hospitalist 02/01/232141 MR#: [id number] Acct: [id number] Name: MONISHA COHN Rep #:[id number] 1 : 1940 82 From: Jaylon Fontana PCP: Alexandra Arreguin WELDER SETTER RESISTANCE MACHINE-C Status:ADM IN Location: [facility] HX108-6 Hospitalist Note As per the nurse, patient changed her mind from DNRCC arrest to full code. She wants to be full code. CODE STATUS changed to full code. 02/01/232141 <Electronically signed by Jaylon Boone MD> Cosigner Signature (if applicable): CC: ~ Signed [facility] Work Phone: 1(607) 916-823410-22-2023 Consult note Author Davian Grier [facility] February 01, 2023 7:27pm Note Date/Time February 01, 2023 7 :27pm [facility] Medical Records Department [address] [place] [address] Consultation - Orthopedics 02/01/231921 MR#: [id number] Acct: [id number] Name: MONISHA COHN Rep #:[id number] 3 : 1940 82 From: Davian beasley DO PCP: SYEDA AnnC Status:ADM IN Location: MS3 KY738-9 HPI Consult Data Date of Consult: 02/01/23 HPI Narrative Reason for Consultation: Left hip fracture HPI Narrative: MONISHA COHN, is a 82 F who presents to [facility] emergency department after a mechanical fall from [...] in the past. Denies history of VTE. [facility] Medical History (Updated 02/01/23 @ 19:[address] Davian Grier, ) Atherosclerotic heart disease of [place] coronary artery without angina pectoris Bladder spasms [...] % (Auto) 60.2, Lymph % (Auto) 28.0, Villalba% (Auto) 8.9, Eos % (Auto) 1.7, Baso [...] 14:52 EDT Reading Location ID and State: [employer] , Service support , Chest X-Ray 02/01/23 14:00 IMPRESSION: Normal x-ray examination of the chest. Electronically Signed: Chun Martinez MD at 14:53 EDT Reading Location ID and State: [employer] , Service support , Femur X-Ray 02/01/23 14:00 IMPRESSION: Acute distracted fracture of the intertrochanteric left femur. Electronically Signed: Chun Martinez MD at 14:55 EDT Reading Location ID and State: [employer] , Service support , Pelvis X-Ray 02/01/23 14:00 IMPRESSION: Acute distracted fracture of the intertrochanteric left femur. Electronically Signed: Chun Martinez MD at 14:54 EDT Reading Location ID and State: [employer] , Service support , Elbow X-Ray 02/01/23 15:12 IMPRESSION: Normal x-ray examination of the elbow. Electronically Signed: Chun Martinez MD at 15:29 EDT , Assessment & Plan Assessment/Plan (1) [...] JACQUI Arreguin; Dr. Davian Grier DO~ Signed [facility] Work Phone: 1(794) 427-528710-22-2023 History and physical note Author Jasmin Steele [facility] February 01, 2023 4:28pm Note Date/Time February 01, 2023 3 :26pm [facility] Medical Records Department [address] [place] [address] H&P Exam - Hospitalist 02/01/23 1526 MR#: [id number] Acct: [id number] Name: MONISHA COHN Rep #:[id number] : 1940 82 From: Jasmin Steele MD PCP: SYEDA AnnC Status:ADM IN Location: MS3 [id number] HPI - General General Date of Admission: 02/01/23 Date of Service: 02/01/23 Chief Complaint: Fall, L hip pain. HPI Narrative The patient is an 82 y/o F w/ PMHx: CAD s/p PCI, HTN, HLD, COPD, Parkinson's disease, Chronic urgency/bladder spasms following with Urology, Gout, Fibromyalgia, Hx usage silver water with chronically silver skin hue, Obesity who presents to the [facility] on 02/01/23 with history of mechanical [...] She notes she is able to tolerate [place] and per daughter Dilaudid low-dose. In the ED she was administered Zofran 4 mg IV x2 and morphine 4 mg IV x2 and did not have a significant reaction thus far but discussed and if any concerns arise or hives would administer medications as needed. [facility] Medical History (Updated 02/01/23 @ 16:[address] Jasmin Steele MD) Atherosclerotic heart disease of [place] coronary artery without angina pectoris Bladder spasms [...] % (Auto) 60.2, Lymph % (Auto) 28.0, Villalba% (Auto) 8.9, Eos % (Auto) 1.7, Baso [...] 14:52 EDT Reading Location ID and State: [employer] / [employer] , Service support , Chest X-Ray 02/01/23 14:00 IMPRESSION: Normal x-ray examination of the chest. Electronically Signed: Chun Martinez MD at 14:53 EDT Reading Location ID and State: [email or web address] Tel , Service support , Femur X-Ray 02/01/23 14:00 IMPRESSION: Acute distracted fracture of the intertrochanteric left femur. Electronically Signed: Chun Martinez MD at 14:55 EDT Reading Location ID and State: [employer] , Service support , Pelvis X-Ray 02/01/23 14:00 IMPRESSION: Acute distracted fracture of the intertrochanteric left femur. Electronically Signed: Chun Martinez MD at 14:54 EDT Reading Location ID and State: [employer] / [employer] , Service support , Assessment & Plan Assessment/Plan (1) Closed hip fracture: PLAN: Plan The patient is an 82 y/o F w/ PMHx: CAD s/p PCI, HTN, HLD, COPD, Parkinson's disease, Chronic urgency/bladder spasms following with Urology, Gout, Fibromyalgia, Hx usage silver water with chronically silver skin hue, Obesity who presents to the [facility] on 02/01/23 with history of mechanical [...] 16 minutes. Charges/Coding Visit Charges Inpatient E&M: 53422 Init Hosp L3 Procedures Hospitalists Procedures: 10257 Advncd Care Plan 30 Min 02/01/23 1628 <Electronically signed by Jasmin Steele MD> Cosigner Signature (if applicable): CC: JACQUI Arreguin; Dr. Jasmin Steele MD~ Signed [facility] Work Phone: [phone]) 877-133010-10-2023 Instructions* Patient Instructions* Em Flynn APRN.RESIDUE FURNACE OPERATOR - 01/20/2023 3:48 PM EDT It was [...] points or more) please discuss with your press washer. Date/Time BP Sitting Heart Rate Sitting BP [...] or you can send a message through [employer]. You can also now schedule and select appointments through [employer]. Em Flynn APRN.RUPALI documented in this encounterHol[facility]10-10-2023 History of Present illness Narrative* Em Flynn APRN.CNP - 01/20/2023 3:00 PM EDT [facility] - FOLLOW UP EVALUATION Alexandra Arreguin APRN.CNP [address] [id number] Dear Alexandra Arreguin APRN.CNP: I had the [...] exercising and going to physical therapy at [facility] and this is going well so she feels she is doing good. They are thinking about moving back to [place] as other than the above, they are [...] them. These started before she moved to [place] and after shehad her heart attack while [...] to wait until she moves back to [place]. Palliative services: Therapy and Exercise: Last PT Date: January 2023 Last OT Date: Last ST Date: Exercises Regularly: Yes ALLERGIES Allergen [...] Objective Vital Signs: Ht 157.5 cm (5' 2) Wt 70.8 kg (156 lb) LMP (LMP [...] c) the amplitude decrements startingafter the 1st sznk-hzq-[id number] sequence. Hand Movements Left 2-Mild. a) 3 [...] been experiencing hallucinations since she moved to [place], but she was embarrassed so she said [...] and to have informationwhen discussing with her press washer. She also believes she has only been taking one of the two blood pressure medications prescribed (we called her press washer office and verified that she is supposed [...] points or more) please discuss with your press washer. Date/Time BP Sitting Heart Rate Sitting BP [...] Duloxetine 20mg 2 Level of service : 41889 (40-54 min). Time spent 50 min on the day of service, which included preparing to see the patient, roxa-rq-jndf patient care, completing clinical documentation, obtaining and/or reviewing separately obtained history, performing a medically appropriate examination, counseling and educating the patient/family/caregiver, and ordering medications, tests, or procedures. Em Flynn APRN.RESIDUE FURNACE OPERATOR documented in this encounterHolzer Hospital06-29-2023 Miscellaneous Notes* Addendum Note - Linden Flynn MD - 10/09/2022 1:32 PM EDTAddended by: LINDEN FLYNN on: 10/09/2022 01:32 PM Modules accepted: Orders documented in this encounterHolzer Hospital06-29-2023 Instructions* Patient Instructions* Linden Flynn MD [...] or you can send a message through [employer]. You can also now schedule and select appointments through [employer]. Linden Flynn MD documented in this encounterHolzer Hospital06-29-2023 History of Present illness Narrative* Linden [...] she used to. She moved here from [place]. She is blue from taking silver water [...] Objective Vital Signs: Ht 157.5 cm (5' 2) Wt 68.6 kg (151 lb 4.8 oz) [...] Achilles 2+ 2+ Plantar Downgoing Downgoing Coordination Firzpz-kg-gjfi, rapid alternating movements and assv-ex-nujd normal bilaterally without dysmetria. Gait Casual gait [...] c) the amplitude decrements startingafter the 1st kgxc-apa-fcpov sequence. Hand Movements Left 3-Moderate. a) more than 5 interruptions during the movement or at least one longer arrest (freeze) in ongoing movement, b) moderate slowing, c) the amplitude decrements starting after the 1st sjga-mhe-ondur sequence. Arm Movements Right 2-Mild. a) 3 [...] Sincerely, Linden Flynn MD documented in this encounterHolzer HospitalDischarge summary [facility] [address] [place] [address] Discharge Summary 01/25/25 1449 MR#: [id number] Acct: [id number] Name: MONISHA COHN Rep #:[id number] : 1940 84 From: Davian interiano MD PCP: Tressa Rosales Status:DIS IN Location: [facility] SO874-8 Providers Date of Admission: 01/20/25 Primary Care Physician: Tressa Rosales Consultations 01/20/25 01:06 Consult: Orthopedics Routine Consulting Provider: Braulio Tijerina Reason for Consult: Impacted Femoral Neck Fracture after Fall. EMERGENT Consult: No MD Notified: Yes Date Notified: 01/20/25 Time Notified: 01:07 Method of Notification: ED Physician Initiated Reason For Visit: FALL WITH RIGHT HIP FRACTURE Diagnosis Discharge Diagnosis (1) Closed hip fracture: Status: Acute Code(s): S72.009A - Fracture of unspecified part of neck of unspecified femur, initial encounter for closed fracture Qualifiers: Encounter type: initial encounter Laterality: left Qualified Code(s): S72.002A - Fracture of unspecified part of neck of left femur, initial encounterfor closed fracture (2) Metacarpal bone fracture: Status: Acute Code(s): S62.309A - Unspecified fracture of unspecified metacarpal bone, initial encounter for closed fracture Qualifiers: Encounter type: initial encounter Metacarpal bone: unspecified metacarpal Fracture type: closed Metacarpal location: shaft Fracture alignment: nondisplaced Qualified Code(s): S62.359A - Nondisplaced fracture of shaft of unspecified metacarpal bone, initial encounter for closed fracture (3) COVID-19: Status: Acute Code(s): U07.1 - COVID-19 Medications at Discharge Home Medications acetaminophen 325 mg capsule 650 mg PO Q6H PRN fever or pain 05/01/23 atorvastatin 40 mg tablet 40 mg PO QHS hld 05/01/23 polyethylene glycol 3350 17 gram/dose oral powder (ClearLax) 17 g PO DAILY 05/01/23 psyllium husk 3.4 gram/5.4 gram oral powder (Stacie-Mucil) 1 tbsp PO DAILY 05/01/23 alendronate 70 mg tablet 70 mg PO QWEEK osteoporosis 09/27/24 carbidopa 25 mg-levodopa 100 mg tablet 2 tab PO DAILY parkinson 09/27/24 celecoxib 200 mg capsule 200 mg PO QDAY 09/27/24 duloxetine 20 mg capsule,delayed release 20 mg PO QDAY 09/27/24 tramadol 50 mg tablet 50 mg PO TID PRN pain 09/27/24 guaifenesin 100 mg/5 mL oral liquid 200 mg PO Q4H PRN cough 12/28/24 melatonin 3 mg capsule 3 mg PO HS PRN sleep 12/28/24 simethicone 125 mg chewable tablet (Mylanta Gas) 125 mg PO QD-BID PRN abdominal distention 12/28/24 ascorbic acid (vitamin C) 500 mg capsule 500 mg PO DAILY supplement 01/20/25 carbidopa 25 mg-levodopa 100 mg tablet (Dhivy) 1.5 tab PO TID parkinson 01/20/25 cholecalciferol (vitamin D3) 50 mcg (2,000 unit) capsule 50 mcg PO DAILY supplement 01/20/25 cyanocobalamin (vitamin B-12) 5,000 mcg capsule 5,000 mcg PO DAILY supplement 01/20/25 mirabegron 50 mg tablet,extended release 24 hr (Myrbetriq) 50 mg PO DAILY bladder 01/20/25 nirmatrelvir 300 mg (150 mg x2)-ritonavir 100 mg tablet,dose pack (Paxlovid) SeeRx Instructions PO .COMPLEX 01/20/25 aspirin 81 mg tablet,delayed release 81 mg PO BREAKFAST #0 tabs 01/25/25 rivaroxaban 10 mg tablet (Xarelto) 10 mg PO DAILY@0600 9 days #0 tabs 01/25/25 Hospital Course Operations - (Right hip endoprosthesis) Procedures None Summary of Care Provided Minutes Spent on Discharge: 35 Hospital Course: Per HPI: MONISHA COHN, is a 84 F with a past medical history of essential hypertension; currently not on treatment, hyperlipidemia; on atorvastatin, former tobacco abuse; with subsequent COPD and pulmonary hypertension, CAD; withRCA stent at [facility] in [place] (2009) and subsequent inferior wall ST elevation [place] s/p RCA stent with cardiogenic shock and cardiac arrest x 3 (2021) on baby aspirin daily, history of nonrheumatic mitral/tricuspid valve insufficiency, Parkinson's disease; on carbidopa-levodopa 3 times daily, fibromyalgia, depression; on duloxetine, history of argyria (bluish skin discoloration); attributed to taking colloidal silver for protracted period of time, OAB; on mirabegron, chronic constipation; on polyethylene glycol daily plus simethicone twice daily as needed, history of gout; currently not on treatment, osteoporosis; on alendronate weekly, OA; on celecoxib plus tramadol 3times daily as needed and recently diagnosed COVID-19 who was transferred from [facility] she was diagnosed with an impacted Right femoral neck fracture in the setting of already being on nirmatrelvir-ritonavir. According to the records the patient was at her ECF when she sustained a mechanical fall onto herRight side with subsequent inability to ambulate. She was noted to have a s calphematoma with a metacarpal fracture of her Right hand but she denied LOC with her fall. Dr. North of [facility] spoke to Dr. Tijerina of the orthopedic service here who recommended admission to the hospitalist service with formal consultation pending in the a.m. for ORIF. She was then admitted to the generalmedical floor for ongoing care for stay that is expected to extend beyond 2 midnights. Hospital Course: # Impacted right intertrochanteric fracture of the femoral neck and metacarpal fracture right hand status post repair 01/20/2025 -After mechanical fall at ECF -Ortho consulted -Patient n.p.o. -Pain control/supportive care -PT/OT postop 01/21/2025: PT/OT pending pre-CERT, she is weightbearing as tolerated and nonweightbearing on her wrist 01/22/2025: Awaiting pre-CERT, hemoglobin has dropped but will recheck in the morning 01/23/2025: Awaiting pre-CERT, hemoglobin is 8.6 which is several points lower than admission however her her hemoglobin tends to run low at times. Will checkiron studies today 01/24/2025: Iron studies were unremarkable, will recheck hemoglobin this afternoon, if she drops below 8 given her coronary artery disease, can transfuse 01/25/2025: She received priesthood today I discussed with her the plan for discharge she expressedunderstanding of the risks and benefits of going to the correction and would like to go today. Hemoglobin has stabilized this was likely due to blood loss during surgery followed by IV fluid administration. She will be weightbearing as tolerated on her operative right lower extremity she also hasa metacarpal fracture in her right hand which should be nonweightbearing. She will be on Xarelto for 9 more days and then transition toaspirin 81 mg p.o. twice daily for 2 weeks and then she can go down to her dailyaspirin dosing # Parkinson's disease - continue home Sinemet - supportive care #Hx of CAD -w/ previous chronically on aspirin and statin -Continue home medications # Elevated trop - Troponin of 27, 29, and then 28 - No chest pain, fall was mechanical, no significant elevations or concern for ongoing/active process # Recent COVID diagnosis - Supportive care -Reports symptoms started Thursday and she was diagnosed on Thursday, has no shortness of breath or cough or respiratory complaints - Currently doing well on room air # History of fibromyalgia - Continue Cymbalta DVT: Xarelto Weight / BMI Weight Weight: 166 lb 14.239 oz Body Mass Index (BMI) 30.7 ABG / Lab / Microbiology Data 01/25/25 06:43 01/24/25 07:36 Laboratory: Laboratory Results - last 24 hr 01/25/25 06:43: WBC 8.6, RBC 3.01 L, Hgb 8.4 L, Hct 24.9 L, MCV 82.7, MCH 27.9, MCHC 33.7, RDW Std Deviation 40.2, RDW Coeff of Aleena 13.2, Plt Count 362, MPV 8.7 Microbiology: Microbiology 01/25/25 10:30 Nasal Secretion SARS-CoV-2 Antigen (Rapid) - Final D/C Instructions DC O2, CPAP, BIPAP Needs Home O2 Discharge instructions: No Meaningful Use Info Meaningful Use Meaningful Use Diagnoses (Choose all that apply): None applicable Discharge Plan Admission Admit Date/Time: 01/20/25 01:09 Attending Provider: Davian Kelly Primary Care Provider: Tressa Rosales Consulting Providers: Braulio Tijerina; Stephan Martel; Darline Lundy Discharge Orders/Prescriptions Prescriptions: New Xarelto 10 mg Tablet 10 mg PO DAILY@0600 9 Days Qty: 0 0RF aspirin 81 mg Tablet,Delayed Release (Dr/Ec) 81 mg PO BREAKFAST Qty: 0 0RF Rx Instructions: Once xarelto is completed, start ASA 81 mg BID for 2 weeks, then resume dailydosing Continued alendronate 70 mg tablet 70 mg PO QWEEK duloxetine 20 mg capsule,delayed release(DR/EC) 20 mg PO QDAY celecoxib 200 mg capsule 200 mg PO QDAY carbidopa-levodopa 25-100 mg tablet 2 tab PO DAILY tramadol 50 mg tablet 50 mg PO TID PRN (Reason: pain) guaifenesin 100 mg/5 mL liquid 200 mg PO Q4H PRN (Reason: cough) simethicone [Mylanta Gas] 125 mg tablet,chewable 125 mg PO QD-BID PRN (Reason: abdominal distention) melatonin 3 mg capsule 3 mg PO HS PRN (Reason: sleep) atorvastatin 40 mg tablet 40 mg PO QHS polyethylene glycol 3350 [ClearLax] 17 gram/dose powder 17 g PO DAILY Stacie-Mucil 3.4 gram/5.4 gram powder 1 tbsp PO DAILY Rx Instructions: mix into at least 8 oz of water or juice before administering acetaminophen 325 mg capsule 650 mg PO Q6H PRN (Reason: fever or pain) Paxlovid 300 mg (150 mg x 2)-100 mg tablets,dose pack See Rx Instructions .ROUTE .COMPLEX Rx Instructions: take TWO 150 mg tablets of nirmatrelvir with ONE 100 mg tablet of ritonavir twice daily for 5 days carbidopa-levodopa [Dhivy] 25-100 mg tablet 1.5 tab PO TID mirabegron [Myrbetriq] 50 mg tablet extended release 24 hr 50 mg PO DAILY cyanocobalamin (vitamin B-12) 5,000 mcg capsule 5,000 mcg PO DAILY ascorbic acid (vitamin C) 500 mg capsule 500 mg PO DAILY cholecalciferol (vitamin D3) 50 mcg (2,000 unit) capsule 50 mcg PO DAILY Discontinued aspirin [Adult Aspirin Regimen] 81 mg tablet,delayed release (DR/EC) 81 mg PO DAILY Referrals / Follow Up: Braulio Tijerina MD [Med Staff - Active Staff, Orthopedics] - Within 2 Weeks Tressa Rosales [Primary Care Provider, Medical] Disposition Disposition (needs filled in before D/C Order can be placed): [facility] Facility Charges/Coding Visit Charges Inpatient E&M: 17863 Disch Hosp >30min 01/25/25 145 Cosigner Signature (if applicable): CC: Dr. Davian Kelly MD; Tressa Rosales~ [facility] Author Davian Kelly [facility] Note Date/Time January 25, 2025 2 :52pm [facility] Medical Records Department [address] [place] [address] Discharge Summary 01/25/25 1449 MR#: [id number] Acct: [id number] Name: MONISHA COHN Rep #:[id number] : 1940 84 From: Davian interiano MD PCP: Tressa Rosales Status:DIS IN Location: [facility] [id number] Providers Date of Admission: 01/20/25 Primary Care Physician: Tressa Rosales Consultations 01/20/25 01:06 Consult: Orthopedics Routine Consulting Provider: Braulio Tijerina Reason for Consult: Impacted Femoral Neck Fracture after Fall. EMERGENT Consult: No MD Notified: Yes Date Notified: 01/20/25 Time Notified: 01:07 Method of Notification: ED Physician Initiated Reason For Visit: FALL WITH RIGHT HIP FRACTURE Diagnosis Discharge Diagnosis (1) Closed hip fracture: Status: Acute Code(s): S72.009A - Fracture of unspecified part of neck of unspecified femur, initial encounter for closed fracture Qualifiers: Encounter type: initial encounter Laterality: left Qualified Code(s): S72.002A - Fracture of unspecified part of neck of left femur, initial encounterfor closed fracture (2) Metacarpal bone fracture: Status: Acute Code(s): S62.309A - Unspecified fracture of unspecified metacarpal bone, initial encounter for closed fracture Qualifiers: Encounter type: initial encounter Metacarpal bone: unspecified metacarpal Fracture type: closed Metacarpal location: shaft Fracture alignment: nondisplaced Qualified Code(s): S62.359A - Nondisplaced fracture of shaft of unspecified metacarpal bone, initial encounter for closed fracture (3) COVID-19: Status: Acute Code(s): U07.1 - COVID-19 Medications at Discharge Home Medications acetaminophen 325 mg capsule 650 mg PO Q6H PRN fever or pain 05/01/23 atorvastatin 40 mg tablet 40 mg PO QHS hld 05/01/23 polyethylene glycol 3350 17 gram/dose oral powder (ClearLax) 17 g PO DAILY 05/01/23 psyllium husk 3.4 gram/5.4 gram oral powder (Stacie-Mucil) 1 tbsp PO DAILY 05/01/23 alendronate 70 mg tablet 70 mg PO QWEEK osteoporosis 09/27/24 carbidopa 25 mg-levodopa 100 mg tablet 2 tab PO DAILY parkinson 09/27/24 celecoxib 200 mg capsule 200 mg PO QDAY 09/27/24 duloxetine 20 mg capsule,delayed release 20 mg PO QDAY 09/27/24 tramadol 50 mg tablet 50 mg PO TID PRN pain 09/27/24 guaifenesin 100 mg/5 mL oral liquid 200 mg PO Q4H PRN cough 12/28/24 melatonin 3 mg capsule 3 mg PO HS PRN sleep 12/28/24 simethicone 125 mg chewable tablet (Mylanta Gas) 125 mg PO QD-BID PRN abdominal distention 12/28/24 ascorbic acid (vitamin C) 500 mg capsule 500 mg PO DAILY supplement 01/20/25 carbidopa 25 mg-levodopa 100 mg tablet (Dhivy) 1.5 tab PO TID parkinson 01/20/25 cholecalciferol (vitamin D3) 50 mcg (2,000 unit) capsule 50 mcg PO DAILY supplement 01/20/25 cyanocobalamin (vitamin B-12) 5,000 mcg capsule 5,000 mcg PO DAILY supplement 01/20/25 mirabegron 50 mg tablet,extended release 24 hr (Myrbetriq) 50 mg PO DAILY bladder 01/20/25 nirmatrelvir 300 mg (150 mg x2)-ritonavir 100 mg tablet,dose pack (Paxlovid) SeeRx Instructions PO .COMPLEX 01/20/25 aspirin 81 mg tablet,delayed release 81 mg PO BREAKFAST #0 tabs 01/25/25 rivaroxaban 10 mg tablet (Xarelto) 10 mg PO DAILY@0600 9 days #0 tabs 01/25/25 Hospital Course Operations - (Right hip endoprosthesis) Procedures None Summary of Care Provided Minutes Spent on Discharge: 35 Hospital Course: Per HPI: MONISHA COHN, is a 84 F with a past medical history of essential hypertension; currently not on treatment, hyperlipidemia; on atorvastatin, former tobacco abuse; with subsequent COPD and pulmonary hypertension, CAD; withRCA stent at [facility] in [place] (2009) and subsequent inferior wall ST elevation [place] s/p RCA stent with cardiogenic shock and cardiac arrest x 3 (2021) on baby aspirin daily, history of nonrheumatic mitral/tricuspid valve insufficiency, Parkinson's disease; on carbidopa-levodopa 3 times daily, fibromyalgia, depression; on duloxetine, history of argyria (bluish skin discoloration); attributed to taking colloidal silver for protracted period of time, OAB; on mirabegron, chronic constipation; on polyethylene glycol daily plus simethicone twice daily as needed, history of gout; currently not on treatment, osteoporosis; on alendronate weekly, OA; on celecoxib plus tramadol 3times daily as needed and recently diagnosed COVID-19 who was transferred from [facility] after she was diagnosed with an impacted Right femoral neck fracture in the setting of already being on nirmatrelvir-ritonavir. According to the records the patient was at her ECF when she sustained a mechanical fall onto herRight side with subsequent inability to ambulate. She was noted to have a scalphematoma with a metacarpal fracture of her Right hand but she denied LOC with her fall. Dr. North of [facility] spoke to Dr. Tijerina of the orthopedic service here who recommended admission to the hospitalist service with formal consultation pending in the a.m. for ORIF. She was then admitted to the generalmedical floor for ongoing care for stay that is expected to extend beyond 2 midnights. Hospital Course: # Impacted right intertrochanteric fracture of the femoral neck and metacarpal fracture right hand status post repair 01/20/2025 -After mechanical fall at ECF -Ortho consulted -Patient n.p.o. -Pain control/supportive care -PT/OT postop 01/21/2025: PT/OT pending pre-CERT, she is weightbearing as tolerated and nonweightbearing on her wrist 01/22/2025: Awaiting pre-CERT, hemoglobin has dropped but will recheck in the morning 01/23/2025: Awaiting pre-CERT, hemoglobin is 8.6 which is several points lower than admission however her her hemoglobin tends to run low at times. Will checkiron studies today 01/24/2025: Iron studies were unremarkable, will recheck hemoglobin this afternoon, if she drops below 8 given her coronary artery disease, can transfuse 01/25/2025: She received priesthood today I discussed with her the plan for discharge she expressed understanding of the risks and benefits of going to the correction and would like to go today. Hemoglobin has stabilized this was likely due to blood loss during surgery followed by IV fluid administration. She will be weightbearing as tolerated on her operative right lower extremity she also has a metacarpal fracture in her right hand which should be nonweightbearing. She will be on Xarelto for 9 more days and then transition toaspirin 81 mg p.o. twice daily for 2 weeks and then she can go down to her dailyaspirin dosing # Parkinson's disease - continue home Sinemet - supportive care #Hx of CAD -w/ previous chronically on aspirin and statin -Continue home medications # Elevated trop - Troponin of 27, 29, and then 28 - No chest pain, fall was mechanical, no significant elevations or concern for ongoing/active process # Recent COVID diagnosis - Supportive care -Reports symptoms started Thursday and she was diagnosed on Thursday, has no shortness of breath or cough or respiratory complaints - Currently doing well on room air # History of fibromyalgia - Continue Cymbalta DVT: Xarelto Weight / BMI Weight Weight: 166 lb 14.239 oz Body Mass Index (BMI) 30.7 ABG / Lab / Microbiology Data 01/25/25 06:43 01/24/25 07:36 Laboratory: Laboratory Results - last 24 hr 01/25/25 06:43: WBC 8.6, RBC 3.01 L, Hgb 8.4 L, Hct 24.9 L, MCV 82.7, MCH 27.9, MCHC 33.7, RDW Std Deviation 40.2, RDW Coeff of Aleena 13.2, Plt Count 362, MPV 8.7 Microbiology: Microbiology 01/25/25 10:30 Nasal Secretion SARS-CoV-2 Antigen (Rapid) - Final D/C Instructions DC O2, CPAP, BIPAP Needs Home O2 Discharge instructions: No Meaningful Use Info Meaningful Use Meaningful Use Diagnoses (Choose all that apply): None applicable Discharge Plan Admission Admit Date/Time: 01/20/25 01:09 Attending Provider: Davian Kelly Primary Care Provider: Tressa Rosales Consulting Providers: Braulio Tijerina; Stephan Martel; Darline Lundy Discharge Orders/Prescriptions Prescriptions: New Xarelto 10 mg Tablet 10 mg PO DAILY@0600 9 Days Qty: 0 0RF aspirin 81 mg Tablet,Delayed Release (Dr/Ec) 81 mg PO BREAKFAST Qty: 0 0RF Rx Instructions: Once xarelto is completed, start ASA 81 mg BID for 2 weeks, then resume dailydosing Continued alendronate 70 mg tablet 70 mg PO QWEEK duloxetine 20 mg capsule,delayed release(DR/EC) 20 mg PO QDAY celecoxib 200 mg capsule 200 mg PO QDAY carbidopa-levodopa 25-100 mg tablet 2 tab PO DAILY tramadol 50 mg tablet 50 mg PO TID PRN (Reason: pain) guaifenesin 100 mg/5 mL liquid 200 mg PO Q4H PRN (Reason: cough) simethicone [Mylanta Gas] 125 mg tablet,chewable 125 mg PO QD-BID PRN (Reason: abdominal distention) melatonin 3 mg capsule 3 mg PO HS PRN (Reason: sleep) atorvastatin 40 mg tablet 40 mg PO QHS polyethylene glycol 3350 [ClearLax] 17 gram/dose powder 17 g PO DAILY Stacie-Mucil 3.4 gram/5.4 gram powder 1 tbsp PO DAILY Rx Instructions: mix into at least 8 oz of water or juice before administering acetaminophen 325 mg capsule 650 mg PO Q6H PRN (Reason: fever or pain) Paxlovid 300 mg (150 mg x 2)-100 mg tablets,dose pack See Rx Instructions .ROUTE .COMPLEX Rx Instructions: take TWO 150 mg tablets of nirmatrelvir with ONE 100 mg tablet of ritonavir twice daily for 5 days carbidopa-levodopa [Dhivy] 25-100 mg tablet 1.5 tab PO TID mirabegron [Myrbetriq] 50 mg tablet extended release 24 hr 50 mg PO DAILY cyanocobalamin (vitamin B-12) 5,000 mcg capsule 5,000 mcg PO DAILY ascorbic acid (vitamin C) 500 mg capsule 500 mg PO DAILY cholecalciferol (vitamin D3) 50 mcg (2,000 unit) capsule 50 mcg PO DAILY Discontinued aspirin [Adult Aspirin Regimen] 81 mg tablet,delayed release (DR/EC) 81 mg PO DAILY Referrals / Follow Up: Braulio Tijerina MD [Med Staff - Active Staff, Orthopedics] - Within 2 Weeks Tressa Rosales [Primary Care Provider, Medical] Disposition Disposition (needs filled in before D/C Order can be placed): [facility] Facility Charges/Coding Visit Charges Inpatient E&M: 14220 Disch Hosp >30min 01/25/25 1452 <Electronically signed by Davian Kelly MD> Cosigner Signature (if applicable): CC: Dr. Davian Kelly MD; Tressa Rosales~ Signed [facility] Work Phone: Evaluation note* Diagnosis Onset Date Resolution Status Bladder spasms acute Edema, lower extremity acute Gout acute Hyperlipidemia acute Urgency of urination acute [facility] Work Phone: Evaluation note* Diagnosis Parkinson's disease (HCC)- Primary Paralysis agitans Argyria of skin, accidental or unintentional, sequela Depression, unspecified depression type [facility] Diagnosis Parkinson's disease without dyskinesia or fluctuating manifestations- Primary Hallucinations Orthostatic hypotension Insomnia, unspecified type documented in this encounter [facility] note* Diagnosis Onset Date Resolution Status CAD (coronary artery disease) chronic Essential (primary) hypertension chronic Hyperlipidemia chronic Non-rheumatic mitral regurgitation chronic Parkinsons disease chronic CHI (closed head injury) acu te Closed hip fracture acute Fall acute History of Parkinson's disease acute [facility] Work Phone: Evaluation note* Diagnosis Onset Date Resolution Status Closed hip fracture acute History of Parkinson's disease acute [facility] Work Phone: Evaluation note* Diagnosis Parkinson's disease without dyskinesia or fluctuating manifestations (HCC)- Primary Orthostatic hypotension Dysphagia, unspecified type Left arm pain Pain in limb Numbness and tingling in left arm Disturbance of skin sensation [facility] Diagnosis Protrusion of cervical intervertebral disc- Primary [facility] Diagnosis Acute pain of left shoulder- Primary Protrusion of cervical intervertebral disc Pain in left elbow Pain in joint, upper arm [facility] Diagnosis Chronic left shoulder pain- Primary Pain in joint, shoulder region [facility] Diagnosis Parkinson's disease without dyskinesia or fluctuating manifestations (HCC)- Primary Orthostatic hypotension Hallucinations Dysphagia, unspecified type [facility] Diagnosis Chronic left shoulder pain Pain in joint, shoulder region [facility] Diagnosis Dysphagia, unspecified type- Primary Parkinson's disease without dyskinesia or fluctuating manifestations (HCC) Orthostatic hypotension [facility]* Diagnosis Dysphagia, unspecified type- Primary Parkinson's disease with dyskinesia without fluctuating manifestations (HCC) Numbness and tingling of both feet Hallucinations [facility] Diagnosis Numbness and tingling of both feet [facility] Diagnosis Onset Date Resolution Status Admit Date 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 CAD (coronary artery disease) chroni c September 27, 2024 10:37am Essential (primary) hypertension chr onic September 27, 2024 10:37am Hyperlipidemia chronic September 27, 2024 10:37am Non-rheumatic mitral regurgitation chronic September 27, 2024 10:37am Parkinsons disease chronic September 112024 10:37am [facility] Work Phone: Reason for referral (narrative)* Diagnostic Procedure Only (Routine) - Pending Review Specialty Diagnoses / Procedures Referred By Contac t Referred To Contact XR IMAGING Diagnoses Chronic left shoulder pain Procedures XR SHOULDER GENERAL 3V OR MORE AP/TRUE AP/OTHER LEFT RADEX SHOULDER COMPLETE MINIMUM 2 VIEWS Claudia Manuel PA-C [address] [place] [address] [place] [address] Referral ID Status Reason Start Date Expiration Date Visits Requested Visits Authorized [id number] Pending Review Auto-Generat ed Referral 09/15/2023 10/13/2024 1 1 [facility] for referral (narrative)* Diagnostic Procedure Only (Routine) - Closed Specialty Diagnoses / Procedures Referred By Contac t Referred To Contact XR IMAGING Diagnoses Chronic left shoulder pain Procedures XR SHOULDER GENERAL 3V OR MORE AP/TRUE AP/OTHER LEFT RADEX SHOULDER COMPLETE MINIMUM 2 VIEWS Claudia Manuel PA-C [address] [place] [address] [place] [address] Referral ID Status Reason Start Date Expiration Date V isits Requested Visits Authorized [id number] Closed Auto-Generate d Referral 09/15/2023 10/13/2024 1 1 [facility] for referral (narrative)No reason for referral information [facility] Work [facility]: [facility] for visit Narrative* Diagnostic Procedure Only (Routine) - Closed Specialty Diagnoses / Procedures Referred By Contac t Referred To Contact XR IMAGING Diagnoses Chronic left shoulder pain Procedures XR SHOULDER GENERAL 3V OR MORE AP/TRUE AP/OTHER LEFT RADEX SHOULDER COMPLETE MINIMUM 2 VIEWS Claudia Manuel PA-C [address] [place] [address] [place] [address] Referral ID Status Reason Start Date Expiration Date V isits Requested Visits Authorized [id number] Closed Auto-Generate d Referral 09/15/2023 10/13/2024 1 1 [facility] Chief Complaint and Reason for Visit Chief [...] Parkinsons disease September 27, 2024 10:3 7am Chief Complaint Admit Date 6 M FU September 27, 2024 10:3 7am CAD/ASHD November 03, 2024 7:08 am CAD/ASHD November 07, 2024 2:27 pm Chief Complaint Admit Date 6 M FU September 27, 2024 10:3 7am CAD/ASHD November 03, 2024 7:08 am CAD/ASHD November 07, 2024 2:27 pm 12m med f/u December 28, 2024 12:46pm Reason for Visit Admit Date Argyria September 27, 2024 10:3 7am CAD (coronary artery disease) September 27, 2024 10:37am Essential (primary) hypertension September 272024 10:37am Hyperlipidemia September 27, 2024 10:3 7am Non-rheumatic mitral regurgitation September 27, 2024 10:37am Parkinsons disease September 27, 2024 10:3 7am Nocturia December 28, 2024 12:46pm Overactive bladder December 28, 2024 12:46pm Urge incontinence December 28, 2024 12:46pm Essential (primary) hypertension [facility] 2024 12:46pm Parkinsons disease December 28, 2024 12:46pm Chief Complaint Admit Date CAD/ASHD November 03, 2024 7:08 am CAD/ASHD November 07, 2024 2:27 pm 12m med f/u December 28, 2024 12:46pm FALL WITH RIGHT HIP FRACTURE January 1:09am FALL WITH RIGHT HIP FRACTURE January 1:12am PREOP January 20, 2025 5 :39am FALL WITH RIGHT HIP FRACTURE January 9:39am FALL WITH RIGHT HIP FRACTURE January 9:18am FALL WITH RIGHT HIP FRACTURE January 10:53am FALL WITH RIGHT HIP FRACTURE January 10:31am FALL WITH RIGHT HIP FRACTURE January 9:18am Reason for Visit Admit Date Nocturia December 28, 2024 12:46pm Overactive bladder December 28, 2024 12:46pm Urge incontinence December 28, 2024 12:46pm Essential (primary) hypertension [facility] 2024 12:46pm Parkinsons disease December 28, 2024 12:46pm Closed hip fracture January 20, 2025 1 :09am COVID-19 January 20, 2025 1 :09am Fall January 20, 2025 1 :09am History of Parkinson's disease January 112024 1:09am Metacarpal bone fracture January 20, 025 1:09am Nondisplaced fracture of bas e of fourth metacarpal bone, right hand, initia January 20, 2025 1:09am Obesity (BMI 30.0-34.9) January 20 1:09am Presence of stent in coronary artery Oct farzad 2024 1:09am Scalp hematoma January 20, 2025 1 :09am Subcapital fracture of right femur Octob er 2024 1:09am Reason for Referral Specialty Diagnoses / Procedures Referred By Arely t Referred To Contact Diagnoses Parkinson's disease (HCC) Procedures PROVIDER ORDERED FOLLOW UP OFFICE/OUTPATIENT [facility] MDM 60-74 MINUTES Linden Flynn MD [address] [place] [address] Referral ID Status Reason Start Date Expiration Date Visits Requested Visits Authorized [id number] Pending Review PCP Requested Referral 10/09/2022 01/07/2023 1 1 Specialty Diagnoses / Procedures Referred By Arely t Referred To Contact [facility] Diagnoses Parkinson's disease (HCC) Procedures CONSULT TO IT SALES REPRESENTATIVE OCCUPATIONAL THERAPY EVAL HIGH COMPLEX 60 MINS Linden Flynn MD [address] [place] [address] [facility] [address] [address] Referral ID Status Reason Start Date Expiration Date Visits Requested Visits Authorized [id number] Pending Review Auto-Generat ed Referral 10/09/2022 10/09/2023 1 1 Specialty Diagnoses / Procedures Referred By Arely t Referred To Contact [facility] Diagnoses Parkinson's disease (HCC) Procedures CONSULT TO PHYSICAL THERAPY PHYSICAL THERAPY EVALUATION HIGH COMPLEX 45 MINS Linden Flynn MD [address] [place] [address] [facility] [address] [address] Referral ID Status Reason Start Date Expiration Date Visits Requested Visits Authorized [id number] Pending Review Auto-Generat ed Referral 10/09/2022 10/09/2023 1 1 Specialty Diagnoses / Procedures Referred By Contac t Referred To Contact MR IMAGING Diagnoses Spinal stenosis of cervical region Procedures MRI CERVICAL SPINE WO IVCON MRI SPINAL CANAL CERVICAL W/O CONTRAST MATRL Em Flynn, AMBULATORY CARE NURSE.RESIDUE FURNACE OPERATOR [address] [place] [phone] [facility] [place] [address] Referral ID Status Reason Start Date Expiration Date Visits Requested Visits Authorized [id number] Authorized Auto-Generat ed Referral 07/06/2023 08/04/2024 1 1 Referral ID Status Reason Start Date Expiration Date V isits Requested Visits Authorized [id number] Closed Auto-Generate d Referral 07/06/2023 08/04/2024 1 1 Specialty Diagnoses / Procedures Referred By Contac t Referred To Contact [facility] [place] Diagnoses Protrusion of cervical intervertebral disc Procedures CONSULT TO [facility] OFFICE/OUTPATIENT [facility] 60 MINUTES Em Flynn, AMBULATORY CARE NURSE.RESIDUE FURNACE OPERATOR [address] [place] [phone] Referral ID Status Reason Start Date Expiration Date Visits Requested Visits Authorized [id number] Authorized PCP Requested Referral 08/03/2023 08/02/2024 1 1 Specialty Diagnoses / Procedures Referred By Contac t Referred To Contact Orthopedics Diagnoses Acute pain of left shoulder Pain in left elbow Procedures CONSULT TO ORTHOPAEDICS OFFICE/OUTPATIENT [facility] 60 MINUTES Stephan Sheehan PA-C [address] [phone] Referral ID Status Reason Start Date Expiration Date Visits Requested Visits Authorized [id number] Authorized PCP Requested Referral 08/27/2023 08/26/2024 1 1 Specialty Diagnoses / Procedures Referred By Contac t Referred To Contact [facility] Diagnoses Protrusion of cervical intervertebral disc Acute pain of left shoulder Pain in left elbow Procedures CONSULT TO PHYSICAL THERAPY PHYSICAL THERAPY EVALUATION HIGH COMPLEX 45 MINS Stephan Sheehan PA-C [address] [place] [phone] [facility] [place] [address] [place] [address] Referral ID Status Reason Start Date Expiration Date Visits Requested Visits Authorized [id number] Pending Review Auto-Generat ed Referral 08/27/2023 08/26/2024 1 1 Specialty Diagnoses / Procedures Referred By Contac t Referred To Contact Diagnoses Parkinson's disease without dyskinesia or fluctuating manifestations (HCC) Procedures PROVIDER ORDERED FOLLOW UP OFFICE/OUTPATIENT [facility] MDM 60 MINUTES Em Flynn, AMBULATORY CARE NURSE.RESIDUE FURNACE OPERATOR [address] [address] Referral ID Status Reason Start Date Expiration Date Visits Requested Visits Authorized [id number] Authorized PCP Requested Referral 12/30/2023 09/28/2024 1 1 Specialty Diagnoses / Procedures Referred By Contac t Referred To Contact [facility] Diagnoses Parkinson's disease without dyskinesia or fluctuating manifestations (HCC) Procedures CONSULT TO PHYSICAL THERAPY PHYSICAL THERAPY EVALUATION HIGH COMPLEX 45 MINS Em Flynn, PAT.RESIDUE FURNACE OPERATOR [address] [address] [facility] [address] [place] [address] Referral ID Status Reason Start Date Expiration Date Visits Requested Visits Authorized [id number] Pending Review Auto-Generat ed Referral 09/29/2023 09/28/2024 1 1 Specialty Diagnoses / Procedures Referred By Contac t Referred To Contact [facility] Diagnoses Acute pain of left shoulder Procedures CONSULT TO PHYSICAL THERAPY PHYSICAL THERAPY EVALUATION HIGH COMPLEX 45 MINS Claudia Manuel PA-C [address] [place] [address] [facility] [address] [place] [address] Referral ID Status Reason Start Date Expiration Date Visits Requested Visits Authorized [id number] Pending Review Auto-Generat ed Referral 10/02/2023 10/01/2024 1 1 Referral ID Status Reason Start Date Expiration Date Visits Requested Visits Authorized [id number] Authorized PCP Requested Referral 12/30/2024 1 1 Specialty Diagnoses / Procedures Referred By Contac t Referred To Contact [facility] Diagnoses Parkinson's disease without dyskinesia or fluctuating manifestations (HCC) Dysphagia, unspecified type Procedures CONSULT TO SPEECH THERAPY OFFICE/OUTPATIENT [facility] 60 MINUTES Em Flynn APRN.RESIDUE FURNACE OPERATOR [address] [address] [facility] [place] [address] [place] [address] Referral ID Status Reason Start Date Expiration Date Visits Requested Visits Authorized [id number] Pending Review Auto-Generat ed Referral 12/31/2023 12/30/2024 1 1 Advance Directives No Advanced Directives Records Found Advance Directive Response Recorded Date/ Time Living Will No February 01 1:49pm Power of Chicken Cutter No February 01, 2023 1:49pm Advance Directive Response Recorded Date/ Time Living Will No February 01 4:06pm Power of Chicken Cutter No February 01, 2023 4:06pm Advance Directive Response Recorded Date/ Time Name of Medical Power of Chicken Cutter Palmira, daughter , CHRISTY May 01, 2023 1:29pm Living Will No May 01 1:29pm Power of Chicken Cutter Yes May 01, 2023 1:29pm Advance Directive Response Recorded Date/ Time Do you have a Healthcare Power of Chicken Cutter? Yes January 20, 2025 1:18am Name of Medical Power of Chicken Cutter palmira mayer January 20, 2025 1:18am Summary Purpose Family History No Family History [...] or prosecute any alcohol or drug abuse patient.[facility] the event this information is protected by the Federal Confidentiality of Alcohol and Drug Abuse Patient Records regulations: The Federal rules restrict any use of the information to criminally investigate or prosecute any alcohol or drug abuse patient.[facility] the event this information is protected by the Federal Confidentiality of Alcohol and Drug Abuse Patient Records regulations: The Federal rules restrict any use of the information to criminally investigate or prosecute any alcohol or drug abuse patient.[facility] the event this information is protected by the Federal Confidentiality of Alcohol and Drug Abuse Patient Records regulations: The Federal rules restrict any use of the information to criminally investigate or prosecute any alcohol or drug abuse patient.[facility] the event this information is protected by the Federal Confidentiality of Alcohol and Drug Abuse Patient Records regulations: The Federal rules restrict any use of the information to criminally investigate or prosecute any alcohol or drug abuse patient.[facility] the event this information is protected by the Federal Confidentiality of Alcohol and Drug Abuse Patient Records regulations: The Federal rules restrict any use of the information to criminally investigate or prosecute any alcohol or drug abuse patient.[facility] the event this information is protected by the Federal Confidentiality of Alcohol and Drug Abuse Patient Records regulations: The Federal rules restrict any use of the information to criminally investigate or prosecute any alcohol or drug abuse patient.[facility] the event this information is protected by the Federal Confidentiality of Alcohol and Drug Abuse Patient Records regulations: The Federal rules restrict any use of the information to criminally investigate or prosecute any alcohol or drug abuse patient.[facility] the event this information is protected by the Federal Confidentiality of Alcohol and Drug Abuse Patient Records regulations: The Federal rules restrict any use of the information to criminally investigate or prosecute any alcohol or drug abuse patient.[facility] the event this information is protected by the Federal Confidentiality of Alcohol and Drug Abuse Patient Records regulations: The Federal rules restrict any use of the information to criminally investigate or prosecute any alcohol or drug abuse patient.[facility] the event this information is protected by the Federal Confidentiality of Alcohol and Drug Abuse Patient Records regulations: The Federal rules restrict any use of the information to criminally investigate or prosecute any alcohol or drug abuse patient.[facility] the event this information is protected by the Federal Confidentiality of Alcohol and Drug Abuse Patient Records regulations: The Federal rules restrict any use of the information to criminally investigate or prosecute any alcohol or drug abuse patient.[facility] Hospital[facility] the event this information is protected by the Federal Confidentiality of Alcohol and Drug Abuse Patient Records regulations: The Federal rules restrict any use of the information to criminally investigate or prosecute any alcohol or drug abuse patient.[facility] Hospital[facility] the event this information is protected by the Federal Confidentiality of Alcohol and Drug Abuse Patient Records regulations: The Federal rules restrict any use of the information to criminally investigate or prosecute any alcohol or drug abuse patient.[facility] the event this information is protected by the Federal Confidentiality of Alcohol and Drug Abuse Patient Records regulations: The Federal rules restrict any use of the information to criminally investigate or prosecute any alcohol or drug abuse patient.[facility] Hospital[facility] the event this information is protected by the Federal Confidentiality of Alcohol and Drug Abuse Patient Records regulations: The Federal rules restrict any use of the information to criminally investigate or prosecute any alcohol or drug abuse patient.[facility] the event this information is protected by the Federal Confidentiality of Alcohol and Drug Abuse Patient Records regulations: The Federal rules restrict any use of the information to criminally investigate or prosecute any alcohol or drug abuse patient.[facility] Hospital[facility] the event this information is protected by the Federal Confidentiality of Alcohol and Drug Abuse Patient Records regulations: The Federal rules restrict any use of the information to criminally investigate or prosecute any alcohol or drug abuse patient.[facility] Hospital[facility] the event this information is protected by the Federal Confidentiality of Alcohol and Drug Abuse Patient Records regulations: The Federal rules restrict any use of the information to criminally investigate or prosecute any alcohol or drug abuse patient.[facility] HospitalIn the event this information is protected by the Federal Confidentiality of Alcohol and Drug Abuse Patient Records regulations: The Federal rules restrict any use of the information to criminally investigate or prosecute any alcohol or drug abuse patient.[facility] HospitalIn the event this information is protected by the Federal Confidentiality of Alcohol and Drug Abuse Patient Records regulations: The Federal rules restrict any use of the information to criminally investigate or prosecute any alcohol or drug abuse patient.[facility] HospitalIn the event this information is protected by the Federal Confidentiality of Alcohol and Drug Abuse Patient Records regulations: The Federal rules restrict any use of the information to criminally investigate or prosecute any alcohol or drug abuse patient.[facility] Reason for Visit (unrecogniz ed section and content) Reason Comments New Patient Evaluation Reason Comments Parkinson's Disease Specialty Diagnoses / Procedures Referred By Arely carlson Referred To Contact Diagnoses Parkinson's disease Procedures PROVIDER ORDERED FOLLOW UP OFFICE/OUTPATIENT NEW [facility]IGH MDM 60-74 MINUTES Linden Flynn MD [address] [place] [address] Referral ID Status Reason Start Date Expiration Date V isits Requested Visits Authorized [id number] Closed PCP Requested Referral 10/09/2022 01/07/2023 1 1 Reason Comments Follow Up Pt wants to discuss left arm pain and left groin pain Parkinson's Disease Specialty Diagnoses / Procedures Referred By Arely carlson Referred To Contact MR IMAGING Diagnoses Spinal stenosis of cervical region Procedures MRI CERVICAL SPINE WO IVCON MRI SPINAL CANAL CERVICAL W/O CONTRAST Em Walker APRN.RUPALI [address] [place] [address] [place] [address] Referral ID Status Reason Start Date Expiration Date V isits Requested Visits Authorized [id number] Closed Auto-Generate d Referral 07/06/2023 08/04/2024 1 1 Reason Comments Results Reason Comments Neck Pain Neck pain Left arm p ain. Would like to discuss MRI and X-ray Results. Specialty Diagnoses / Procedures Referred By Contac t Referred To Contact [facility] [place] Diagnoses Protrusion of cervical intervertebral disc Procedures CONSULT TO [facility] OFFICE/OUTPATIENT [facility] 60 MINUTES Em Flynn, PAT.RESIDUE FURNACE OPERATOR [address] [place] [address] Referral ID Status Reason Start Date Expiration Date V isits Requested Visits Authorized [id number] Closed PCP Requested Referral 08/03/2023 08/02/2024 1 1 Reason Comments Parkinson's Disease Follow Up Reason Comments New Pain Specialty Diagnoses / Procedures Referred By Contac t Referred To Contact Orthopedics Diagnoses Acute pain of left shoulder Pain in left elbow Procedures CONSULT TO ORTHOPAEDICS OFFICE/OUTPATIENT [facility] 60 MINUTES Stephan Sheehan PA-C [address] [place] [address] Referral ID Status Reason Start Date Expiration Date V isits Requested Visits Authorized [id number] Closed PCP Requested Referral 08/27/2023 08/26/2024 1 1 Reason Comments Patient Update Patient Question Orders Reason Comments Broke Beater - Other Reason Comments Radiology Mammogram Reason Comments Parkinson's Disease Specialty Diagnoses / Procedures Referred By Contac t Referred To Contact Diagnoses Parkinson's disease without dyskinesia or fluctuating manifestations (HCC) Procedures PROVIDER ORDERED FOLLOW UP OFFICE/OUTPATIENT [facility] 60 MINUTES Em Flynn, AMBULATORY CARE NURSE.RESIDUE FURNACE OPERATOR [address] [place] [id number] Referral ID Status Reason Start Date Expiration Date V isits Requested Visits Authorized [id number] Closed PCP Requested Referral 12/30/2023 09/28/2024 1 1 Reason Comments Parkinson's Disease Specialty Diagnoses / Procedures Referred By Contac t Referred To Contact Diagnoses Parkinson's disease without dyskinesia or fluctuating manifestations (HCC) Procedures PROVIDER ORDERED FOLLOW UP OFFICE/OUTPATIENT [facility] 60 MINUTES Em Flynn, AMBULATORY CARE NURSE.RESIDUE FURNACE OPERATOR [address] [place] [address] Phone: tel: fax: Referral ID Status Reason Start Date Expiration Date V isits Requested Visits Authorized [id number] Closed PCP Requested Referral 03/31/2024 12/30/2024 1 1 Reason Comments Neuropathy Specialty Diagnoses / Procedures Referred By Contac t Referred To Contact Neurology Diagnoses Numbness and tingling of both feet Numbness and tingling in both hands Procedures CONSULT TO NEUROLOGY OFFICE/OUTPATIENT [facility] 60 MINUTES Em Flynn, AMBULATORY CARE NURSE.RESIDUE FURNACE OPERATOR [address] [place] [address] Phone: tel: fax: Referral ID Status Reason Start Date Expiration Date V isits Requested Visits Authorized [id number] Closed PCP Requested Referral 06/28/2024 06/28/2025 1 1 Care Teams (unrecognized sec tion and content) Team Status: Active Member Role Status Dates Alexandra Arreguin WELDER SETTER RESISTANCE MACHINE, WELDER SETTER RESISTANCE MACHINE-C Primary Care Provider Active Team Status: Active Member Role Status Dates Alexandra Arreguin NP, WELDER SETTER RESISTANCE MACHINE-C Primary Care Provider Active Dr. Law Gold , DO Emergency Provider Active Dr. Jasmin Steele MD Admit Provider, Other Provider Active Dr. Davian Grier , DO Other Provider Active Dr. Darline Lundy MD Attending Provider, Other Provid er Active Team Status: Active Member Role Status Dates Alexandra Arreguin NP, WELDER SETTER RESISTANCE MACHINE-C Primary Care Provider Active Dr. Law Gold , DO Emergency Provider Active Dr. Jasmin Steele MD Admit Provider, Other Provider Active Dr. Darline Lundy MD Other Provider Active Dr. Davian Grier , DO Other Provider Active Dr. Jaylon Boone MD Attending Provider Active Team Status: Active Member Role Status Dates Alexandra Arreguin NP, WELDER SETTER RESISTANCE MACHINE-C Primary Care Provider Active Dr. Law Gold , DO Emergency Provider Active Dr. Jasmin Steele MD Admit Provider, Other Provider Active Dr. Darline Lundy MD Attending Provider, Other Provid er Active Dr. Davian Grier , DO Other Provider Active Team Status: Inactive Member Role Status Dates Alexandra Arreguin NP, WELDER SETTER RESISTANCE MACHINE-C Primary Care Provider Active Dr. Danielle Vernon MD Attending Provider, Referring Pr ovider Active Team Status: Inactive Member Role Status Dates Alexandra Arreguin WELDER SETTER RESISTANCE MACHINE, WELDER SETTER RESISTANCE MACHINE-C Primary Care Provider Active Dr. Law Gold , DO Emergency Provider Active Dr. Jasmin Steele MD Admit Provider, Other Provider Active Dr. Darline Lundy MD Attending Provider Active Dr. Davian Grier , Other Provider Active Team Status: Inactive Member Role Status Dates Alexandra Arreguin WELDER SETTER RESISTANCE MACHINE, WELDER SETTER RESISTANCE MACHINE-C Primary Care Provider Active Dr. Law Gold , DO Emergency Provider Active Tanning Wheel Operator Relationship Specialty Start Date End Date Alexandra Arreguin, AMBULATORY CARE NURSE.RESIDUE FURNACE OPERATOR [address] [place], [place] [phone] PCP - General Family Medicine 01/20/23 Team Status: Inactive Member Role Status Dates Alexandra Arreguin WELDER SETTER RESISTANCE MACHINE, WELDER SETTER RESISTANCE MACHINE-C Primary Care Provider, Referr ing Provider Active Dr. Danielle Vernon MD Attending Provider Active Team Status: Active Member Role Status Dates Alexandra Arreguin WELDER SETTER RESISTANCE MACHINE, WELDER SETTER RESISTANCE MACHINE-C Primary Care Provider Active Dr. Law Gold , DO Emergency Provider Active Dr. Jasmin Steele MD Admit Provider, Attending Prov ider Active Tanning Wheel Operator Relationship Specialty Start Date End Date Alexandra Arreguin, AMBULATORY CARE NURSE.RESIDUE FURNACE OPERATOR [address] [place] [address] PCP - General Family Medicine 01/20/23 Tanning Wheel Operator Relationship Specialty Start Date End Date Alexandra Arreguin, AMBULATORY CARE NURSE.RESIDUE FURNACE OPERATOR [address] [place] [address] PCP - General Family Medicine 01/20/23 Tanning Wheel Operator Relationship Specialty Start Date End Date Alexandra Arreguin, AMBULATORY CARE NURSE.RESIDUE FURNACE OPERATOR [address] [place], [place] [phone] PCP - General Family Medicine 01/20/23 Tanning Wheel Operator Relationship Specialty Start Date End Date Alexandra Arreguin, AMBULATORY CARE NURSE.RESIDUE FURNACE OPERATOR [address] [place] [address] PCP - General Family Medicine 01/20/23 Tanning Wheel Operator Relationship Specialty Start Date End Date Alexandra Arreguin, AMBULATORY CARE NURSE.RESIDUE FURNACE OPERATOR [address] [place], [place] [phone] PCP - General Family Medicine 01/20/23 Tanning Wheel Operator Relationship Specialty Start Date End Date Alexandra Arreguin, AMBULATORY CARE NURSE.RESIDUE FURNACE OPERATOR [address] [place], [place] [phone] PCP - General Family Medicine 01/20/23 Tanning Wheel Operator Relationship Specialty Start Date End Date Alexandra Arreguin, AMBULATORY CARE NURSE.RESIDUE FURNACE OPERATOR [address] [place] [address] PCP - General Family Medicine 01/20/23 Tanning Wheel Operator Relationship Specialty Start Date End Date Alexandra Arreguin, AMBULATORY CARE NURSE.RESIDUE FURNACE OPERATOR [address] [place] [address] PCP - General Family Medicine 01/20/23 Tanning Wheel Operator Relationship Specialty Start Date End Date Alexandra Arreguin, AMBULATORY CARE NURSE.RESIDUE FURNACE OPERATOR [address] [place] [address] PCP - General Family Medicine 01/20/23 Tanning Wheel Operator Relationship Specialty Start Date End Date Alexandra Arreguin, AMBULATORY CARE NURSE.RESIDUE FURNACE OPERATOR [address] [place] [address] PCP - General Family Medicine 01/20/23 Tanning Wheel Operator Relationship Specialty Start Date End Date Alexandra Arreguin, AMBULATORY CARE NURSE.RESIDUE FURNACE OPERATOR [address] [place], [place] [phone] PCP - General Family Medicine 01/20/23 Tanning Wheel Operator Relationship Specialty Start Date End Date Alexandra Arreguin, AMBULATORY CARE NURSE.RESIDUE FURNACE OPERATOR [address] [place], [place] [phone] PCP - General Family Medicine 01/20/23 Tanning Wheel Operator Relationship Specialty Start Date End Date Alexandra Arreguin, AMBULATORY CARE NURSE.RESIDUE FURNACE OPERATOR [address] [place], [place] [phone] PCP - General Family Medicine 01/20/23 Tanning Wheel Operator Relationship Specialty Start Date End Date Alexandra Arreguin, AMBULATORY CARE NURSE.RESIDUE FURNACE OPERATOR [address] [place], [place] [phone] PCP - General Family Medicine 01/20/23 Tanning Wheel Operator Relationship Specialty Start Date End Date Alexandra Arreguin, AMBULATORY CARE NURSE.RESIDUE FURNACE OPERATOR [address] [place], [place] [phone] PCP - General Family Medicine 01/20/23 Tanning Wheel Operator Relationship Specialty Start Date End Date Alexandra Arreguin, AMBULATORY CARE NURSE.RESIDUE FURNACE OPERATOR [address] [place], [place] [phone] PCP - General Family Medicine 01/20/23 Team Status: Active Member Role Status Dates Tressa HALL Primary Care Provider Active Team Status: Inactive Member Role Status Dates Alexandra Arreguin WELDER SETTER RESISTANCE MACHINE, WELDER SETTER RESISTANCE MACHINE-C Primary Care Provider Active Start: March 16, 2024 End: March 16, 2024 Alexandra Arreguin WELDER SETTER RESISTANCE MACHINE, WELDER SETTER RESISTANCE MACHINE-C Referring Provider Active Start: March 16, 2024 End: March 16, 2024 Dr. Danielle Vernon MD Attending Provider Active Start: March 16, 2024 End: March 16, 2024 Team Status: Inactive Member Role Status Dates Didi Lujan WELDER SETTER RESISTANCE MACHINE, WELDER SETTER RESISTANCE MACHINE-C Attending Provider Active Start: June 03, 2024 End: June 03, 2024 Didi Lujan WELDER SETTER RESISTANCE MACHINE, WELDER SETTER RESISTANCE MACHINE-C Referring Provider Active Start: June 03, 2024 End: June 03, 2024 Tressa HALL Primary Care Provider Active Start: June 03, 2024 End: June 03, 2024 Tanning Wheel Operator Relationship Specialty Start Date End Date Alexandra Arreguin, PAT.RESIDUE FURNACE OPERATOR [address] [facility] [address] [place] [address] PCP - General Family Medicine 01/20/23 Team Status: Inactive Member Role Status Dates Tressa HALL Primary Care Provider Active Start: September 27, 2024 End: September 27, 2024 Tressa HALL Referring Provider Active Start: September 27, 2024 End: September 27, 2024 Dr. Danielle Vernon MD Attending Provider Active Start: September 27, 2024 End: September 27, 2024 Team Status: Active Member Role/Relationship Status Dates Tressa HALL Primary Care Provider Active Team Status: Inactive Member Role/Relationship Status Dates Tressa HALL Primary Care Provider Active Start: September 27, 2024 End: September 27, 2024 Tressa HALL Referring Provider Active Start: September 27, 2024 End: September 27, 2024 Dr. Danielle Vernon MD Attending Provider Active Start: September 27, 2024 End: September 27, 2024 Team Status: Inactive Member Role/Relationship Status Dates Tressa HALL Primary Care Provider Active Start: November 03, 2024 End: November 03, 2024 Dr. Danielle Vernon MD Attending Provider Active Start: November 03, 2024 End: November 03, 2024 Dr. Danielle Vernon MD Referring Provider Active Start: November 03, 2024 End: November 03, 2024 Team Status: Active Member Role/Relationship Status Dates Tressadennis Rosales ISABEL Primary Care Provider Active Start: November 03, 2024 Dr. Danielle Vernon MD Attending Provider Active Start: November 03, 2024 Team Status: Active Member Role/Relationship Status Dates Tressa HALL Primary Care Provider Active Start: November 07, 2024 Dr. Danielle Vernon MD Attending Provider Active Start: November 07, 2024 Dr. Danielle Vernon MD Referring Provider Active Start: November 07, 2024 Dr. Danielle Vernon MD Other Provider Active Star t: November 07, 2024 Team Status: Active Member Role/Relationship Status Dates Tressa Boltonwal ISABEL Primary care physician Active Team Status: Inactive Member Role/Relationship Status Dates Tressa Boltonwal ISABEL Primary care physician Active Start: September 27, 2024 End: September 27, 2024 Tressa LiveBobby ISABEL Referring Provider Active Start: September 27, 2024 End: September 27, 2024 Dr. Danielle Vernon MD Attending physician Active Start: September 27, 2024 End: September 27, 2024 Team Status: Inactive Member Role/Relationship Status Dates Tressa Boltonwal ISABEL Primary care physician Active Start: November 03, 2024 End: November 03, 2024 Dr. Danielle Vernon MD Attending physician Active Start: November 03, 2024 End: November 03, 2024 Dr. Danielle Vernon MD Referring Provider Active Start: November 03, 2024 End: November 03, 2024 Team Status: Active Member Role/Relationship Status Dates Tressa Boltonwal ISABEL Primary care physician Active Start: November 03, 2024 Dr. Danielle Vernon MD Attending physician Active Start: November 03, 2024 Team Status: Active Member Role/Relationship Status Dates Tressa Boltonwal ISABEL Primary care physician Active Start: November 07, 2024 Dr. Danielle Vernon MD Attending physician Active Start: November 07, 2024 Dr. Danielle Vernon MD Referring Provider Active Start: November 07, 2024 Dr. Danielle Vernon MD Nurse Practitioner Active Start: November 07, 2024 Team Status: Inactive Member Role/Relationship Status Dates Tressa Boltonwal ISABEL Primary care physician Active Start: December 28, 2024 End: December 28, 2024 Tressa Boltonwal ISABEL Referring Provider Active Start: December 28, 2024 End: December 28, 2024 Dr. Alexandria Dejesus MD Attending physician Active Start: December 28, 2024 End: December 28, 2024 Team Status: Inactive Member Role/Relationship Status Dates Tressa HALL Primary care physician Active Start: November 03, 2024 End: November 03, 2024 Dr. Danielle Vernon MD Attending physician Active Start: November 03, 2024 End: November 03, 2024 Dr. Danielle Vernon MD Referring Provider Active Start: November 03, 2024 End: November 03, 2024 Team Status: Active Member Role/Relationship Status Dates Tressa HALL Primary care physician Active Start: November 03, 2024 Dr. Danielle Vernon MD Attending physician Active Start: November 03, 2024 Team Status: Active Member Role/Relationship Status Dates Tressa HALL Primary care physician Active Start: November 07, 2024 Dr. Danielle Vernon MD Attending physician Active Start: November 07, 2024 Dr. Danielle Vernon MD Referring Provider Active Start: November 07, 2024 Dr. Danielle Vernon MD Nurse Practitioner Active Start: November 07, 2024 Team Status: Inactive Member Role/Relationship Status Dates Tressa HALL Primary care physician Active Start: December 28, 2024 End: December 28, 2024 Tressa HALL Referring Provider Active Start: December 28, 2024 End: December 28, 2024 Dr. Alexandria Dejesus MD Attending physician Active Start: December 28, 2024 End: December 28, 2024 Team Status: Inactive Member Role/Relationship Status Dates Tressa HALL Primary care physician Active Start: January 20, 2025 End: January 25, 2025 Dr. Stephan Martel DO Admitting physician Active Start: January 20, 2025 End: January 25, 2025 Dr. Stephan Martel DO Nurse Practitioner Active Start: January 20, 2025 End: January 25, 2025 Dr. Braulio Tijerina MD Nurse Practitioner Active Start: January 20, 2025 End: January 25, 2025 Dr. Davian Kelly MD Attending physician Activ e Start: January 20, 2025 End: January 25, 2025 Dr. Darline Lundy MD Nurse Practitioner Active Start: January 20, 2025 End: January 25, 2025 Team Status: Active Member Role/Relationship Status Dates Tressajenny BoltonBobby ISABEL Primary care physician Active Start: January 20, 2025 Dr. Stephan Martel DO Admitting physician Active Start: January 20, 2025 Dr. Stephan Martel DO Attending physician Active Start: January 20, 2025 Dr. Stephan Martel , DO Nurse Practitioner Active Start: January 20, 2025 Dr. Braulio Tijerina MD Nurse Practitioner Active Start: January 20, 2025 Team Status: Active Member Role/Relationship Status Dates [facility] Bobby ISABEL Primary care physician Active Start: January 20, 2025 Dr. Danielle Vernon MD Attending physician Active Start: January 20, 2025 Dr. Danielle Vernon MD Referring Provider Active Start: January 20, 2025 Team Status: Active Member Role/Relationship Status Dates [facility] Bobby ISABEL Primary care physician Active Start: January 21, 2025 Dr. Stephan Martel DO Admitting physician Active Start: January 21, 2025 Dr. Stephan Martel DO Nurse Practitioner Active Start: January 21, 2025 Dr. Braulio Tijerina MD Nurse Practitioner Active Start: January 21, 2025 Dr. Davian Kelly MD Attending physician Activ e Start: January 21, 2025 Dr. Davian Kelly MD Nurse Practitioner Active Start: January 21, 2025 Dr. Darline Lundy MD Nurse Practitioner Active Start: January 21, 2025 Team Status: Active Member Role/Relationship Status Dates [facility] Bobby ISABEL Primary care physician Active Start: January 22, 2025 Dr. Stephan Martel DO Admitting physician Active Start: January 22, 2025 Dr. Stephan Martel DO Nurse Practitioner Active Start: January 22, 2025 Dr. Braulio Tijerina MD Nurse Practitioner Active Start: January 22, 2025 Dr. Davian Kelly MD Attending physician Activ e Start: January 22, 2025 Dr. Davian Kelly MD Nurse Practitioner Active Start: January 22, 2025 Dr. Darline Lundy MD Nurse Practitioner Active Start: January 22, 2025 Team Status: Active Member Role/Relationship Status Dates Tressajenny BoltonBobby ISABEL Primary care physician Active Start: January 23, 2025 Dr. Stephan Martel DO Admitting physician Active Start: January 23, 2025 Dr. Stephan Martel DO Nurse Practitioner Active Start: January 23, 2025 Dr. Braulio Tijerina MD Nurse Practitioner Active Start: January 23, 2025 Dr. Davian Kelly MD Attending physician Activ e Start: January 23, 2025 Dr. Davian Kelly MD Nurse Practitioner Active Start: January 23, 2025 Dr. Darline Lundy MD Nurse Practitioner Active Start: January 23, 2025 Team Status: Active Member Role/Relationship Status Dates Tressajenny BoltonBobby ISABEL Primary care physician Active Start: January 24, 2025 Dr. Stephan Martel DO Admitting physician Active Start: January 24, 2025 Dr. Stephan Martel DO Nurse Practitioner Active Start: January 24, 2025 Dr. Braulio Tijerina MD Nurse Practitioner Active Start: January 24, 2025 Dr. Davian Kelly MD Attending physician Activ e Start: January 24, 2025 Dr. Davian Kelly MD Nurse Practitioner Active Start: January 24, 2025 Dr. Darline Lundy MD Nurse Practitioner Active Start: January 24, 2025 Team Status: Active Member Role/Relationship Status Dates [facility] ISABEL Primary care physician Active Start: January 25, 2025 Dr. Stephan Martel DO Admitting physician Active Start: January 25, 2025 Dr. Stephan Martel DO Nurse Practitioner Active Start: January 25, 2025 Dr. Braulio Tijerina MD Nurse Practitioner Active Start: January 25, 2025 Dr. Davian Kelly MD Attending physician Activ e Start: January 25, 2025 Dr. Davian Kelly MD Nurse Practitioner Active Start: January 25, 2025 Dr. Darline Lundy MD Nurse Practitioner Active Start: January 25, 2025 INFORMATION SOURCE (unrecogn ized section and content) DATE CREATED AUTHOR 10/02/2023 [facility] DATE CREATED AUTHOR AUTHOR'S ORGANIZ ATION 12/30/2024 [facility] DATE CREATED AUTHOR AUTHOR'S ORGANIZ ATION 01/22/2025 [facility] DATE CREATED AUTHOR AUTHOR'S ORGANIZ ATION 02/16/2025 [facility] FOR RECORDS PERTAINING TO PATIENTS WHO [...] BE BASED ON THE PRIMARY CLINICAL RECORDS. [facility] [employer] provides no warranty or guarantee of the accuracy or completeness of information in this document.
== END | disposition home or self-care (01) ==
PROVIDERS: PCP Internal Medicine Geriatric Medicine
DX: S62.344A Nondisplaced fracture of base of fourth metacarpal bone, right hand, initial encounter for closed fracture (principal); X58.XXXA Exposure to other specified factors, initial encounter; Z96.641 Presence of right artificial hip joint
CPT/HCPCS: 87070; 87075; 87205

== ENCOUNTER 2025-03-10 16:00 | Emergency (ER) | payer MEDICARE, MEDICAID, SELFPAY ==
[2025-03-10] VITALS (12 sets, daily range): BP systolic 82–108; BP diastolic 37–48; PULSE 62–70; RESP 14–23; TEMP 36.6; O2SAT 96–100; BMI 35.2
--- NOTE | 2025-03-10 16:17 | EX.ED.DYSGE1 ---
HPI History of Present Illness Chief Complaint: General Illness Detail of Chief Complaint: Clot right gastrocnemius vein on venous duplex study Informant: patient, EMS and SNF Onset/Context/Timing Onset: - (Venous duplex study revealed clot right lower extremity below the trifurcation) Context: - (Unknown) Timing: - (Unknown) Quality: Patient is a poor informant Location: Right gastrocnemius vein Current Severity: Clot noted on venous duplex study right lower extremity Maximum Severity: Unknown Worsened by: Recent hip surgery by Dr. Braulio Tijerina Relieved by: Not applicable Associated Symptoms Associated Symptoms: No chest pain or shortness of breath Narrative Narrative: Patient was diagnosed with a right hip subcapital femoral neck fracture. She underwent surgery by Dr. Tijerina earlier this month. She is presently on Lovenox. She has a wound VAC anterior proximal right thigh due to postop hematoma. There is blood noted in the tubing. She had an outpatient venous duplex study. The report is not available. Spoke with Danielle at the nursing facility. She informing that she had a "ultrasound "of the right lower extremity revealed a clot in the "gastroc vein. " Patient denies chest pain. Patient denies shortness of breath. Patient denies fever or chills. Prior similar symptoms: No Recent Illness/Hospitalization: Yes [facility] Medical History MRSA (methicillin resistant staph aureus) culture positive Nocturia Urge incontinence Overactive bladder Former tobacco use Depression Hypertension Fall CHI (closed head injury) Presence of stent in coronary artery (~12/22/21) Atherosclerotic heart disease of [place] coronary artery without angina pectoris ST elevation myocardial infarction (STEMI) of inferior wall (~12/22/21) Essential (primary) hypertension Parkinsons disease Urgency of urination Gout Cardiogenic shock Non-rheumatic mitral regurgitation Non-rheumatic tricuspid valve insufficiency Pulmonary hypertension Emphysema with chronic bronchitis Fibromyalgia Hyperlipidemia CAD (coronary artery disease) Bladder spasms Edema, lower extremity Myocardial infarction Home Medications Medication Instructions Recorded Last Taken Type acetaminophen 325 mg capsule 650 mg PO Q8H PRN fever or pain 05/01/23 04/29/23 History atorvastatin 40 mg tablet 40 mg PO QHS hYPERLIPIDEMIA 05/01/23 04/30/23 History polyethylene glycol 3350 17 17 g PO DAILY PRN constipation 05/01/23 05/01/23 History gram/dose oral powder (ClearLax) psyllium husk 3.4 gram/5.4 gram 1 tbsp PO DAILY PRN CONSTIPATION 05/01/23 04/30/23 History oral powder (Stacie-Mucil) alendronate 70 mg tablet 70 mg PO QWEEK osteoporosis 09/27/24 Unknown History duloxetine 20 mg capsule,delayed 20 mg PO QDAY DEPRESSION 09/27/24 Unknown History release guaifenesin 100 mg/5 mL oral liquid 200 mg PO Q4H PRN cough 12/28/24 Unknown History melatonin 3 mg capsule 3 mg PO HS sleep 12/28/24 Unknown History simethicone 125 mg chewable tablet 125 mg PO BID PRN abdominal 12/28/24 Unknown History (Mylanta Gas) distention ascorbic acid (vitamin C) 500 mg 500 mg PO BID supplement 01/20/25 Unknown History capsule carbidopa 25 mg-levodopa 100 mg 1.5 tab PO TID parkinson 01/20/25 Unknown History tablet (Dhivy) mirabegron 50 mg tablet,extended 50 mg PO DAILY bladder 01/20/25 Unknown History release 24 hr (Myrbetriq) acetaminophen 500 mg tablet 500 mg PO Q8H PRN pain 02/15/25 Unknown History (Tylenol Extra Strength) ferrous sulfate 325 mg (65 mg 325 mg PO BID ANEMIA 02/15/25 Unknown History iron) tablet (FeroSul) acetaminophen 500 mg capsule 500 mg PO TID PAIN 02/28/25 Unknown History aluminum-mag hydroxide-simethicone 10 ml PO Q4H PRN indigestion, GAS, 02/28/25 Unknown History 400 mg-400 mg-40 mg/5 mL oral susp HEARTBURN, NAUSEA (Advanced Antacid-Antigas) aspirin 81 mg tablet,delayed 81 mg PO BREAKFAST ANTICOAGULANT 02/28/25 Unknown History release ceramides 1,3,6-II (CeraVe Daily 1 applic topical DAILY DRY SKIN 02/28/25 Unknown History Moisturizing lotion) cholecalciferol (vitamin D3) 50 50 mcg PO DAILY SUPPLEMENT 02/28/25 Unknown History mcg (2,000 unit) capsule (D3-1999) cyanocobalamin (vitamin B-12) 500 500 mcg PO DAILY ANEMIA 02/28/25 Unknown History mcg tablet (Vitamin B-12) sennosides 8.6 mg tablet (Laxative 8.6 mg PO BID CONSTIPATION 02/28/25 Unknown History (sennosides)) rifampin 300 mg capsule 300 mg PO Q12H 90 days #180 caps 03/03/25 Unknown Rx vancomycin 750 mg intravenous 750 mg IV Q12H 40 days #80 ea 03/03/25 Unknown Rx solution enoxaparin 80 mg/0.8 mL 74 mg (0.74 mL) subcut Q12H #8 mL 03/05/25 Unknown Rx subcutaneous syringe (Lovenox) metoprolol tartrate 25 mg tablet 25 mg PO BID #0 tabs 03/05/25 Unknown Rx Allergy/AdvReac Type Severity Reaction Status Date / Time oxycodone (From Percocet) Allergy Severe Hives Verified 03/10/25 16:09 Family History Father Heart disease Surgical History History 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 alcohol intake: current alcohol intake frequency: holidays/special occasions only substance use type: does not use caffeine: Yes Type: coffee Number of servings: 2 ROS ROS ED Review of Systems ROS Unobtainable: due to mental status Cardiovascular Cardiovascular: Denies chest pain or palpitations Respiratory/Chest Respiratory/Chest: Denies cough or dyspnea Hematologic/Lymphatic Hematologic/Lymphatic: Reports systems reviewed and no addt'l complaints, except as documented, easy bleeding and easy bruising EXAM Physical Exam Const Vital Signs: 03/10/25 16:04 03/10/25 16:08 03/10/25 16:10 Temperature 98 F 98 F Temperature Source Oral Oral Pulse Rate 64 62 Respiratory Rate 18 18 Respiratory Effort Normal Respiratory Pattern Normal Blood Pressure 108/45 L 108/45 L Blood Pressure Mean 66 66 Pulse Ox 100 100 Oxygen Delivery Method Room Air Room Air Positive well nourished and well developed Constitutional Narrative: Patient has a silver color to her skin because when she was younger she ingested silver compounds prevent infection. General Appearance ED: well developed and pallor HEENT Reports moist mucous membranes HEENT Narrative: Head is atraumatic normocephalic. Ears normal. Nares patent. Posterior pharynx is normal Eyes PERRL and EOMs intact bilaterally General Eye ED: Yes pale conjunctiva Neck No no lymphadenopathy and No no JVD Chest Wall inspection of chest normal and palpation of chest normal Resp normal respiratory effort and clear to auscultation bilaterally Cardio regular rate, regular rhythm, S1 normal heart sound, S2 normal heart sound and no murmurs Extremity Negative for normal to inspection Extremity Narrative: Patient's right calf is swollen compared to left. She has tenderness posterior aspect of the calf. There is no pain ovation of the popliteal fossa. She does have a wound VAC noted with blood coming from the wound. She has no neurovascular compromise of the right lower extremity. Neuro No oriented x3 Neuro Narrative: Awake but not alert. Sensorium / Orientation: orientation impaired Psych mental status grossly normal Skin no rashes or lesions noted and No no wounds Skin Narrative: Pigmentation due to silver compound ingestion many years ago General Skin Exam: pallor; Negative for elasticity normal or jaundice MDM MDM MDM Narrative Medical decision making narrative: Since patient has no history of cancer and the clot is below the trifurcation, right gastrocnemius vein and the fact that she has a bleeding wound and anemia with a hemoglobin 7 8 recommendation is serial venous duplex studies. If there is propagation she will need anticoagulation with either Xarelto or Eliquis. Patient's most recent creatinine is 0.94 with an estimated GFR 42. She has greater the age of 81. There will need to be a dose reduction. Patient was informed of possibilities. And explained to her in my opinion the prudent option would be serial venous duplex studies. Discharge Plan Triage Chief Complaint: General Illness ED Provider: John Ricci Dx/Rx/DC Orders Clinical Impression: Acute deep vein thrombosis (DVT) of right lower extremity, Signs and symptoms of anemia, Mild renal insufficiency, Adult BMI 35.0-35.9 kg/sq m, History of Parkinson's disease, Essential (primary) hypertension, Hyperlipidemia, Subcapital fracture of right femur Prescriptions: No Action alendronate 70 mg tablet 70 mg PO QWEEK Patient Comments: TAKES EVERY THURSDAY duloxetine 20 mg capsule,delayed release(DR/EC) 20 mg PO QDAY guaifenesin 100 mg/5 mL liquid 200 mg PO Q4H PRN (Reason: cough) simethicone [Mylanta Gas] 125 mg tablet,chewable 125 mg PO BID PRN (Reason: abdominal distention) melatonin 3 mg capsule 3 mg PO HS acetaminophen [Tylenol Extra Strength] 500 mg tablet 500 mg PO Q8H PRN (Reason: pain) ferrous sulfate [FeroSul] 325 mg (65 mg iron) tablet 325 mg PO BID atorvastatin 40 mg tablet 40 mg PO QHS polyethylene glycol 3350 [ClearLax] 17 gram/dose powder 17 g PO DAILY PRN (Reason: constipation) Stacie-Mucil 3.4 gram/5.4 gram powder 1 tbsp PO DAILY PRN (Reason: CONSTIPATION) Rx Instructions: mix into at least 8 oz of water or juice before administering acetaminophen 325 mg capsule 650 mg PO Q8H PRN (Reason: fever or pain) carbidopa-levodopa [Dhivy] 25-100 mg tablet 1.5 tab PO TID mirabegron [Myrbetriq] 50 mg tablet extended release 24 hr 50 mg PO DAILY ascorbic acid (vitamin C) 500 mg capsule 500 mg PO BID Rx Instructions: GIVE WITH IRON acetaminophen 500 mg capsule 500 mg PO TID CeraVe Daily Moisturizing Lotion 1 applic topical DAILY cyanocobalamin (vitamin B-12) [Vitamin B-12] 500 mcg tablet 500 mcg PO DAILY alum-mag hydroxide-simeth [Advanced Antacid-Antigas] 400-400-40 mg/5 mL suspension 10 ml PO Q4H PRN (Reason: indigestion, GAS, HEARTBURN, NAUSEA) sennosides [Laxative (sennosides)] 8.6 mg tablet 8.6 mg PO BID cholecalciferol (vitamin D3) [D3-2000] 50 mcg (2,000 unit) capsule 50 mcg PO DAILY aspirin 81 mg Tablet,Delayed Release (Dr/Ec) 81 mg PO BREAKFAST vancomycin 750 mg recon soln 750 mg IV Q12H 40 Days Qty: 80 0RF Rx Instructions: stop date 04/13/25. Dx: R hip PJI. Weekly bmp, cbc, LFT, esr, and vanc trough. Fax to [phone]. rifampin 300 mg capsule 300 mg PO Q12H 90 Days Qty: 180 0RF metoprolol tartrate 25 mg Tablet 25 mg PO BID Qty: 0 0RF enoxaparin [Lovenox] 80 mg/0.8 mL syringe 74 mg subcut Q12H Qty: 8 0RF Other Ambulatory Orders: Venous Duplex US, Unilateral (Stat) Facility: [facility] - Location: [facility] Ordered By: Dr. John Ricci Primary Care Provider: Tressa Conn Referrals: Tressa Conn MD [Primary Care Provider, Internal Medicine] - As Needed Print Language: Kyrgyz Disposition Disposition: Home, Self Care
--- OUTSIDE RECORDS SUMMARY | 2025-03-10 16:33 | XMS RPT_ITS | CCD ---
Author Organization [facility] Care Team Providers Care Signal Manager Name Role Phone Unavailable Primary Care Provider Minesh Arreguin CLERICAL CLERK.ERCO MACHINE OPERATOR, Alexandra L Primary Care Provide r Rodríguez RESEARCH AND DEVELOPMENT ENGINEER, RESEARCH AND DEVELOPMENT ENGINEER-C Alexandra Primary Care Provider Rodríguez RESEARCH AND DEVELOPMENT ENGINEER, RESEARCH AND DEVELOPMENT ENGINEER-C Alexandra Referring Provider [phone] Dr. Danielle Vernon Attending Provider Dr. Law Gold Emergency Provider Dr. Jasmin Steele Admit Provider Dr. Jasmin Steele Other Provider Dr. Davian Grier Other Provider Dr. Darline Lundy Attending Provider Dr. Darline Lundy Other Provider Dr. Jaylon Boone Attending Provider Rodríguez RESEARCH AND DEVELOPMENT ENGINEER, RESEARCH AND DEVELOPMENT ENGINEER-C Alexandra Primary Care Provider Dr. Law Gold Emergency Provider Dr. Jasmin Steele Admit Provider Dr. Jasmin Steele Other Provider Dr. Davian Grier Other Provider Dr. Darline Lundy Attending Provider Dr. Darline Lundy Other Provider Dr. Jaylon Boone Attending Provider Rodríguez STEWART.ERCO MACHINE OPERATOR, Alexandra L Primary Care Provide r TAI, DIDI Referring Unavailable ARREGUIN, ALEXANDRA L Primary Care Unavailable TAI, DIDI Referring Unavailable ARREGUIN, ALEXANDRA L Primary Care Unavailable TAI, DIDI Referring Unavailable ARREGUIN, ALEXANDRA L Primary Care Unavailable PROVIDER, UNKNOWN Referring Unavailable ARREGUIN, ALEXANDRA L Primary Care Unavailable Arreguin RESEARCH AND DEVELOPMENT ENGINEER-C, Alexandra Primary Care Provider Arreguin RESEARCH AND DEVELOPMENT ENGINEER-C, Alexandra Referring Provider Saulo DEL RIO, Dr. Santos Attending Provider Tai RESEARCH AND DEVELOPMENT ENGINEER-C, Didi Attending Provider Tai RESEARCH AND DEVELOPMENT ENGINEER-C, Didi Referring Provider Bobby OLS, [facility] Primary Care Provider Shavonne vailable Tai RESEARCH AND DEVELOPMENT ENGINEER-C, Didi Attending Provider Tai RESEARCH AND DEVELOPMENT ENGINEER-C, Didi Referring Provider Bobby OLS, Tressa Primary Care Provider Shavonne vailable Bobby HALL, [facility] Referring Provider Dr. Danielle Arciniega MD Attending Provider Bobby HALL, Tressa Primary Care Provider Shavonne vailaDr. Danielle Phillips MD Referring Provider Dr. Danielle Vernon MD Other Provider Bobby HALL [facility] Primary Care Physician Un available Saulo [...] Lilliana DEL RIO, Dr. Ramsey Nurse Practitioner [phone] Robin DEL RIO, Dr. Davian Richards Attending Physician Kamron DEL RIO, Dr. Gregorio Nurse Practitioner [phone] Martel DO, Dr. Rothman Attending Physician Shavonne vailable Robin DEL RIO, Dr. Davian Richards Nurse Practitioner Davian Kelly Attending Unavailable Braulio Tijerina Consulting Unavailable Bobby OLS, Tressa Primary Care Unavailab Stephan Urrutia Admitting Unavailable Stephan Martel Consulting Unavailable Darline Lundy Consulting Unavailable Davian Kelly Consulting Unavailable Tai RESEARCH AND DEVELOPMENT ENGINEER, Didi Referring Unavailable Tai RESEARCH AND DEVELOPMENT ENGINEER, Didi Attending Unavailable Bobby OLS, Tressa Primary [...] Prado Attending Unavailable SauloDanielle Attending Unavailable Rodríguez RESEARCH AND DEVELOPMENT ENGINEER, Alexandra Primary Care Unavailable Rodríguez RESEARCH AND DEVELOPMENT ENGINEER, Alexandra Referring Unavailable Danielle Vernon Attending Unavailable Bobby OLS, Tressa Referring Unavailab le Bobby OLS, Tressa Primary Care Unavailab le Bobby OLS, Tressa Referring Unavailab le Bobby OLS, Tressa Primary Care Unavailab Alexandria Prado Attending Unavailable Stephan Martel Attending Unavailable SauloDanielle Attending Unavailable Bobby OLS, Tressa Primary [facility] Unavailab le Danielle Vernon Consulting Unavailable Danielle Vernon Referring Unavailable Danielle Vernon Attending Unavailable Tressa Alan Primary [facility] Unavailab le Allergies Allergy Classification Reported Allergen(s) Allergy Type Date of Onset Reaction(s) Facility Acetaminophen / oxyCODONE (1 source) Acetaminophen / oxyCODONE; Translations: [OXYCODONE-ACETAM INOPHEN] Drug Allergy 3 [facility] (20 sources) Acetaminophen / oxyCODONE; Translations: [OXYCODONE-ACETAM INOPHEN] Drug Allergy 3 Rash, Itching [facility] (8 sources) oxyCODONE Drug Allergy 3 [facility] (4 sources) ARIPiprazole; Translations: [ARIPIPRAZOLE] Drug Allergy 5 [facility] (4 sources) Haloperidol; Translations: [HALOPERIDOL] Drug Allergy 5 [facility] (4 sources) Metoclopramide; Translations: [METOCLOPRAMIDE] Drug Allergy 5 [facility] (4 sources) Prochlorperazine; Translations: [PROCHLORPERAZINE ] Drug Allergy 5 [facility] (4 sources) Promethazine; Translations: [PROMETHAZINE] Drug Allergy 5 [facility] (1 source) OLANZapine; Translations: [OLANZAPINE] Drug Allergy 5 [facility] (1 source) oxyCODONE Drug Allergy 5 [facility] Rep[facility] Medications Current Medications Medication Drug [...] Comment on above: Take 1 tablet by [facility] two times a day. aspirin 81 [...] Comment on above: [facility] 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 EF has normalized Post PCI functional capacity has returned to normal Ekg reveals residual T wave inversion from recent OR Coronary atherosclerosis and other heart disease (20 sources) Coronary arteriosclerosis; Translations: [Atherosclerotic heart disease of [place] coronary artery without angina pectoris] Onset: 07-31-2022 10-09-2022 Chronic Coronary atherosclerosis and other heart disease (20 sources) Stented coronary artery; Translations: [Presence of coronary angioplasty implant and graft] Onset: 12-12-2021 07-25-2022 Episodic Comment on above: PTCA/FLOYD Mid-distal RCA-PCI/FLOYD 2.66h19fv @ [facility] 12/22/21; Prox/distal RCA 2.5x30mm and 2.5x12mm @ [facility], [place] 12/20/09 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 Alexandria Lion i, MD Age/Sex: 84/F [facility] [facility] Status: Signed Intake Vital Signs 12/28/24 13:11 01/20/25 01:17 02/15/25 09:47 Height 5 ft 2 in 5 ft 2 in 5 ft 2 in Weight: 166 lb 14 oz BMI 30.5 BP 130/75 H Pulse 75 Intake Visit Reasons: 4wk MED F/U Chief Complaint: myrbetriq follow up Supervisor [place] Required: No Accompanied by: health aid Is [...] is afraid to stand on her own. [facility] Medical History Nocturia Urge incontinence Overactive bladder Former tobacco use Depression Hypertension Fall [facility] (closed head injury) Presence of stent in coronary artery ( 12/22/21) Atherosclerotic heart disease of [place] coronary artery without angina pectoris ST elevation [...] has si (more content not included)... Normal [facility] Basic Metabolic Profile (BMP )on 01-27-2025 BUN Normal 07-30 [facility] Comment on above: Result Comment: Supa eubanks via OM: Ordered Performed By: #### L 503.0106, BTS, L500.4050, L100.0100, L501.9520 #### [facility] [address] [place], [address] BUN/CRE Normal 01-30 [facility] Comment on above: Result Comment: Supa eubanks via OM: Ordered Performed By: #### L 503.0106, BTS, L500.4050, L100.0100, L501.9520 #### [facility] [address] [place], [address] Calcium Normal 7.6-11.0 [facility] Comment on above: Result Comment: Canc elled via OM: MD Ordered Performed By: #### L 503.0106, BTS, L500.4050, L100.0100, L501.9520 #### [facility] [address] [place], [address] CL Normal 98-108 [facility] Comment on above: Result Comment: Canc elled via OM: MD Ordered Performed By: #### L 503.0106, BTS, L500.4050, L100.0100, L501.9520 #### [facility] [address] [place], [address] CO2 Normal 21.0-32.0 [facility] Comment on above: Result Comment: Canc elled via OM: MD Ordered Performed By: #### L 503.0106, BTS, L500.4050, L100.0100, L501.9520 #### [facility] [address] [place], [address] CREAT,SERUM Normal 0.70-1.20 [facility] Comment on above: Result Comment: Canc elled via OM: MD Ordered Performed By: #### L 503.0106, BTS, L500.4050, L100.0100, L501.9520 #### [facility] [address] [place], [address] eGFR Normal >60 [facility] Comment on above: Result Comment: Canc elled via OM: MD Ordered Performed By: #### L 503.0106, BTS, L500.4050, L100.0100, L501.9520 #### [facility] [address] [place], [address] GAP Normal 5-15 [facility] Comment on above: Result Comment: Canc elled via OM: MD Ordered Performed By: #### L 503.0106, BTS, L500.4050, L100.0100, L501.9520 #### [facility] [address] [place], [address] GLU Normal 70-99 [facility] Comment on above: Result Comment: Canc elled via OM: MD Ordered Performed By: #### L 503.0106, BTS, L500.4050, L100.0100, L501.9520 #### [facility] [address] [place], [address] Potassium Normal 3.3-5.1 [facility] Comment on above: Result Comment: Canc elled via OM: MD Ordered Performed By: #### L 503.0106, BTS, L500.4050, L100.0100, L501.9520 #### [facility] [address] [place], [address] Basic Metabolic Profile (BMP) Normal 133-145 [facility] Comment on above: Result Comment: Canc elled via OM: MD Ordered Performed By: #### L 503.0106, BTS, L500.4050, L100.0100, L501.9520 #### [facility] [address] [place], [address] CBC-Complete Blood Cnt No Di ffon 01-27-2025 HCT Normal 37-47 [facility] Comment on above: Result Comment: Canc elled via OM: Order cancelled - Patient discharged Performed By: #### L 503.0106, BTS, L500.4050, L100.0100, L501.9520 #### [facility] [address] [place], [address] HGB Normal 12.0-15.0 [facility] Comment on above: Result Comment: Canc elled via OM: Order cancelled - Patient discharged Performed By: #### L 503.0106, BTS, L500.4050, L100.0100, L501.9520 #### [facility] [address] [place], [address] MCH Normal 27.0-32.0 [facility] Comment on above: Result Comment: Canc elled via OM: Order cancelled - Patient discharged Performed By: #### L 503.0106, BTS, L500.4050, L100.0100, L501.9520 #### [facility] [address] [place], [address] MCHC Normal 32-36 [facility] Comment on above: Result Comment: Canc elled via OM: Order cancelled - Patient discharged Performed By: #### L 503.0106, BTS, L500.4050, L100.0100, L501.9520 #### [facility] [address] [place], [address] MCV Normal 81-99 [facility] Comment on above: Result Comment: Canc elled via OM: Order cancelled - Patient discharged Performed By: #### L 503.0106, BTS, L500.4050, L100.0100, L501.9520 #### [facility] [address] [place], [address] PLT Normal 150-450 [facility] Comment on above: Result Comment: Canc elled via OM: Order cancelled - Patient discharged Performed By: #### L 503.0106, BTS, L500.4050, L100.0100, L501.9520 #### [facility] [address] [place], [address] RBC Normal 4.2-5.4 [facility] Comment on above: Result Comment: Canc elled via OM: Order cancelled - Patient discharged Performed By: #### L 503.0106, BTS, L500.4050, L100.0100, L501.9520 #### [facility] [address] [place], [address] RDW CV Normal 11.6-14.6 [facility] Comment on above: Result Comment: Canc elled via OM: Order cancelled - Patient discharged Performed By: #### L 503.0106, BTS, L500.4050, L100.0100, L501.9520 #### [facility] [address] [place], [address] RDW SD Normal 35.1-43.9 [facility] Comment on above: Result Comment: Canc elled via OM: Order cancelled - Patient discharged Performed By: #### L 503.0106, BTS, L500.4050, L100.0100, L501.9520 #### [facility] [address] [place], [address] WBC Normal 4.4-11.0 [facility] Comment on above: Result Comment: Canc elled via OM: Order cancelled - Patient discharged Performed By: #### L 503.0106, BTS, L500.4050, L100.0100, L501.9520 #### [facility] [address] [place], [address] Surgical pathology reportOrd ered By: Debbie Corea on 01-27-2025 Surgical pathology study [facility] Basic Metabolic Profile (BMP )on 01-26-2025 BUN Normal 4-19 [facility] Comment on above: Result Comment: Canc elled via OM: MD Ordered Performed By: #### L 503.0106, BTS, L500.4050, L100.0100, L501.9520 #### [facility] [address] [place], [address] BUN/CRE Normal 10-20 [facility] Comment on above: Result Comment: Canc elled via OM: MD Ordered Performed By: #### L 503.0106, BTS, L500.4050, L100.0100, L501.9520 #### [facility] [address] [place], [address] Calcium Normal 7.6-11.0 [facility] Comment on above: Result Comment: Canc elled via OM: MD Ordered Performed By: #### L 503.0106, BTS, L500.4050, L100.0100, L501.9520 #### [facility] [address] [place], [address] CL Normal 98-108 [facility] Comment on above: Result Comment: Canc elled via OM: MD Ordered Performed By: #### L 503.0106, BTS, L500.4050, L100.0100, L501.9520 #### [facility] [address] [place], [address] CO2 Normal 21.0-32.0 [facility] Comment on above: Result Comment: Canc elled via OM: MD Ordered Performed By: #### L 503.0106, BTS, L500.4050, L100.0100, L501.9520 #### [facility] [address] [place], [address] CREAT,SERUM Normal 0.70-1.20 [facility] Comment on above: Result Comment: Canc elled via OM: MD Ordered Performed By: #### L 503.0106, BTS, L500.4050, L100.0100, L501.9520 #### [facility] [address] [place], [address] eGFR Normal >60 [facility] Comment on above: Result Comment: Canc elled via OM: MD Ordered Performed By: #### L 503.0106, BTS, L500.4050, L100.0100, L501.9520 #### [facility] [address] [place], [address] GAP Normal 5-15 [facility] Comment on above: Result Comment: Canc elled via OM: MD Ordered Performed By: #### L 503.0106, BTS, L500.4050, L100.0100, L501.9520 #### [facility] [address] [place], [address] GLU Normal 70-99 [facility] Comment on above: Result Comment: Canc elled via OM: MD Ordered Performed By: #### L 503.0106, BTS, L500.4050, L100.0100, L501.9520 #### [facility] [address] [place], [address] Potassium Normal 3.3-5.1 [facility] Comment on above: Result Comment: Canc elled via OM: MD Ordered Performed By: #### L 503.0106, BTS, L500.4050, L100.0100, L501.9520 #### [facility] [address] [place], [address] Basic Metabolic Profile (BMP) Normal 133-145 [facility] Comment on above: Result Comment: Canc elled via OM: MD Ordered Performed By: #### L 503.0106, BTS, L500.4050, L100.0100, L501.9520 #### [facility] [address] [place], [address] CBC-Complete Blood Cnt No Di ffon 01-26-2025 HCT Normal 37-47 [facility] Comment on above: Result Comment: Canc elled via OM: Order cancelled - Patient discharged Performed By: #### L 503.0106, BTS, L500.4050, L100.0100, L501.9520 #### [facility] [address] [place], [address] HGB Normal 12.0-15.0 [facility] Comment on above: Result Comment: Canc elled via OM: Order cancelled - Patient discharged Performed By: #### L 503.0106, BTS, L500.4050, L100.0100, L501.9520 #### [facility] [address] [place], [address] MCH Normal 27.0-32.0 [facility] Comment on above: Result Comment: Canc elled via OM: Order cancelled - Patient discharged Performed By: #### L 503.0106, BTS, L500.4050, L100.0100, L501.9520 #### [facility] [address] [place], [address] MCHC Normal 32-36 [facility] Comment on above: Result Comment: Canc elled via OM: Order cancelled - Patient discharged Performed By: #### L 503.0106, BTS, L500.4050, L100.0100, L501.9520 #### [facility] [address] [place], [address] MCV Normal 81-99 [facility] Comment on above: Result Comment: Canc elled via OM: Order cancelled - Patient discharged Performed By: #### L 503.0106, BTS, L500.4050, L100.0100, L501.9520 #### [facility] [address] [place], [address] PLT Normal 150-450 [facility] Comment on above: Result Comment: Canc elled via OM: Order cancelled - Patient discharged Performed By: #### L 503.0106, BTS, L500.4050, L100.0100, L501.9520 #### [facility] [address] [place], [address] RBC Normal 4.2-5.4 [facility] Comment on above: Result Comment: Canc elled via OM: Order cancelled - Patient discharged Performed By: #### L 503.0106, BTS, L500.4050, L100.0100, L501.9520 #### [facility] [address] [place], [address] RDW CV Normal 11.6-14.6 [facility] Comment on above: Result Comment: Canc elled via OM: Order cancelled - Patient discharged Performed By: #### L 503.0106, BTS, L500.4050, L100.0100, L501.9520 #### [facility] [address] [place], [address] RDW SD Normal 35.1-43.9 [facility] Comment on above: Result Comment: Canc elled via OM: Order cancelled - Patient discharged Performed By: #### L 503.0106, BTS, L500.4050, L100.0100, L501.9520 #### [facility] [address] [place], [address] WBC Normal 4.4-11.0 [facility] Comment on above: Result Comment: Canc elled via OM: Order cancelled - Patient discharged Performed By: #### L 503.0106, BTS, L500.4050, L100.0100, L501.9520 #### [facility] [address] [place], [address] Basic Metabolic Profile (BMP )on 01-25-2025 BUN Normal -19 [facility] Comment on above: Result Comment: Canc elled via OM: MD Ordered Performed By: #### L 500.2500, L100.0500 #### [facility] [address] [place], [address] BUN/CRE Normal - [facility] Comment on above: Result Comment: Canc elled via OM: MD Ordered Performed By: #### L 500.2500, L100.0500 #### [facility] [address] [place], [address] Calcium Normal 7.6-11.0 [facility] Comment on above: Result Comment: Canc elled via OM: MD Ordered Performed By: #### L 500.2500, L100.0500 #### [facility] [address] [place], [address] CL Normal 98-108 [facility] Comment on above: Result Comment: Canc elled via OM: MD Ordered Performed By: #### L 500.2500, L100.0500 #### [facility] [address] [place], [address] CO2 Normal 21.0-32.0 [facility] Comment on above: Result Comment: Canc elled via OM: MD Ordered Performed By: #### L 500.2500, L100.0500 #### [facility] [address] [place], [address] CREAT,SERUM Normal 0.70-1.20 [facility] Comment on above: Result Comment: Canc elled via OM: MD Ordered Performed By: #### L 500.2500, L100.0500 #### [facility] [address] [place], [address] eGFR Normal >60 [facility] Comment on above: Result Comment: Canc elled via OM: MD Ordered Performed By: #### L 500.2500, L100.0500 #### [facility] [address] [place], [address] GAP Normal 5-15 [facility] Comment on above: Result Comment: Canc elled via OM: MD Ordered Performed By: #### L 500.2500, L100.0500 #### [facility] [address] [place], [address] GLU Normal 70-99 [facility] Comment on above: Result Comment: Canc elled via OM: MD Ordered Performed By: #### L 500.2500, L100.0500 #### [facility] [address] [place], [address] Potassium Normal 3.3-5.1 [facility] Comment on above: Result Comment: Canc elled via OM: MD Ordered Performed By: #### L 500.2500, L100.0500 #### [facility] [address] [place], [address] Basic Metabolic Profile (BMP) Normal 133-145 [facility] Comment on above: Result Comment: Canc elled via OM: MD Ordered Performed By: #### L 500.2500, L100.0500 #### [facility] [address] [place], [address] CBC-Complete Blood Cnt No Di ffon 01-25-2025 Erythrocyte distribution width (RBC) [Ratio] 13.2 % Normal 11.6-14.6 [facility] Comment on above: Performed By: #### L 500.2500, L100.0500 #### [facility] [address] [place], [address] Hematocrit (Bld) [Volume fraction] 24.9 % Low 37-47 [facility] Comment on above: Performed By: #### L 500.2500, L100.0500 #### [facility] [address] [place], [address] Hemoglobin (Bld) [Mass/Vol] 8.4 g/dL Low 12.0-15.0 [facility] Comment on above: Performed By: #### L 500.2500, L100.0500 #### [facility] [address] [place], [address] MCH (RBC) [Entitic mass] 27.9 pg Normal 27.0-32.0 [facility] Comment on above: Performed By: #### L 500.2500, L100.0500 #### [facility] [address] [place], [address] MCHC (RBC) [Mass/Vol] 33.7 g/dL Normal 32-36 [facility] Comment on above: Performed By: #### L 500.2500, L100.0500 #### [facility] [address] [place], [address] MCV (RBC) [Entitic vol] 82.7 fL Normal 81-99 [facility] Comment on above: Performed By: #### L 500.2500, L100.0500 #### [facility] [address] [place], [address] Platelet mean volume (Bld) [Entitic vol] 8.7 fL Normal 6.2-12.0 [facility] Comment on above: Performed By: #### L 500.2500, L100.0500 #### [facility] [address] [place], [address] Platelets (Bld) [#/Vol] 362 10*3/uL Normal 150-450 [facility] Comment on above: Performed By: #### L 500.2500, L100.0500 #### [facility] [address] [place], [address] RBC (Bld) [#/Vol] 3.01 10*6/uL Low 4.2-5.4 [facility] Comment on above: Performed By: #### L 500.2500, L100.0500 #### [facility] [address] [place], [address] RDW SD 40.2 fl Normal 35.1-43.9 [facility] Comment on above: Performed By: #### L 500.2500, L100.0500 #### [facility] [address] [place], [address] WBC (Bld) [#/Vol] 8.6 10*3/uL Normal 4.4-11.0 [facility] Comment on above: Performed By: #### L 500.2500, L100.0500 #### [facility] [address] [place], [address] COVID 19 AG RAPID (AUGUSTIN Carlson)on 01-25-2025 SARS-CoV-2 (COVID-19) RNA DESHAUN+probe Ql (Unsp spec) SARS-CoV-2 (COVID 19) Negative RAPID METHOD [employer]Now COVID19 Ag Card Normal [facility] Comment on above: Performed By: #### L 503.0106, BTS, L500.4050, L100.0100, L501.9520 #### [facility] [address] [place], [place], [address] COVID-19 virus antigen assay Ordered By: Davian Kelly on 01-25-2025 SARS-CoV-2 (COVID-19) Ag IA.rapid Ql (Resp) [facility] Erythrocyte distribution wid th ratioOrdered By: Darline Lundy on 01-25-2025 Erythrocyte distribution width (RBC) [Ratio] 13.2 % 11.6-14.6 [facility] Erythrocyte distribution wid th standard deviationOrdered By: Darline Lundy on 01-25-2025 Erythrocyte distribution width (RBC) [Ratio] 40.2 fl 35.1-43.9 [facility] Hematocrit Auto (Bld) [Volum e fraction]Ordered By: Darline Lundy on 01-25-2025 Hematocrit (Bld) [Volume fraction] 24.9 % Low 37-47 [facility] Hemoglobin measurementOrdere d By: Darline Lundy on 01-25-2025 Hemoglobin (Bld) [Mass/Vol] 8.4 g/dL Low 12.0-15.0 [facility] MCV (mean corpuscular volume ) determinationOrdered By: Darline Lundy on 01-25-2025 MCV (RBC) [Entitic vol] 82.7 fL 81-99 [facility] Mean corpuscular hemoglobin (MCH) determinationOrdered By: Darline Lundy on 01-25-2025 MCH (RBC) [Entitic mass] 27.9 pg 27.0-32.0 [facility] Mean corpuscular hemoglobin concentration (MCHC) determinationOrdered By: Darline Lundy on 01-25-2025 MCHC (RBC) [Mass/Vol] 33.7 g/dL 32-36 [facility] Mean platelet volume determi nationOrdered By: Darline Lundy on 01-25-2025 Platelet mean volume (Bld) [Entitic vol] 8.7 fL 6.2-12.0 [facility] Platelet countOrdered By: Luiz Lundy on 01-25-2025 Platelets (Bld) [#/Vol] 362 10*3/uL 150-450 [facility] RBC Auto (Bld) [#/Vol]Ordere d By: Darline Lundy on 01-25-2025 RBC (Bld) [#/Vol] 3.01 10*6/uL Low 4.2-5.4 [facility] White blood cell (WBC) count Ordered By: Darline Lundy on 01-25-2025 WBC (Bld) [#/Vol] 8.6 10*3/uL 4.4-11.0 [facility] Anion gap in Serum or Plasma Ordered By: Darline Lundy on 01-24-2025 Anion gap [Moles/Vol] 9 mmol/L 08-25 [facility] BUN/creatinine ratioOrdered By: Darline Lundy on 01-24-2025 Urea nitrogen/Creatinine [Mass ratio] 28.0 mg/mg High 01-30 [facility] Basic Metabolic Profile (BMP )on 01-24-2025 BUN/CRE 28.0 RATIO High 01-30 [facility] Comment on above: Performed By: #### L 503.0106, BTS, L500.4050, L100.0100, L501.9520 #### [facility] [address] [place], [address] Calcium [Mass/Vol] 8.4 mg/dL Normal 7.6-11.0 [facility] Comment on above: Performed By: #### L 503.0106, BTS, L500.4050, L100.0100, L501.9520 #### [facility] [address] [place], [address] Chloride [Moles/Vol] 103 mmol/L Normal 98-108 [facility] Comment on above: Performed By: #### L 503.0106, BTS, L500.4050, L100.0100, L501.9520 #### [facility] [address] [place], [address] CO2 [Moles/Vol] 24.5 mmol/L Normal 21.0-32.0 [facility] Comment on above: Performed By: #### L 503.0106, BTS, L500.4050, L100.0100, L501.9520 #### [facility] [address] [place], [address] Creatinine [Mass/Vol] 0.68 mg/dL Low 0.70-1.20 [facility] Comment on above: Performed By: #### L 503.0106, BTS, L500.4050, L100.0100, [id number] #### [facility] [address] [place], [address] ECRCL 49.12 ml/min Low 50-250 [facility] Comment on above: Performed By: #### L 503.0106, BTS, L500.4050, L100.0100, [id number] #### [facility] [address] [place], [address] GAP 9 Normal 5-15 [facility] Comment on above: Performed By: #### L 503.0106, BTS, L500.4050, L100.0100, L501.9520 #### [facility] [address] [place], [address] GFR/1.73 sq M.predicted among non-blacks MDRD (S/P/Bld) [Vol rate/Area] 86 mL/min/{1.73_m2} Normal >60 [facility] Comment on above: Result Comment: mL/m in/1.73m2 CKD-EPI Creatinine Equation (2020) Performed By: #### L 503.0106, BTS, L500.4050, L100.0100, [id number] #### [facility] [address] [place], [address] Glucose [Mass/Vol] 97 mg/dL Normal 70-99 [facility] Comment on above: Performed By: #### L 503.0106, BTS, L500.4050, L100.0100, L501.9520 #### [facility] [address] [place], [address] Potassium [Moles/Vol] 3.9 mmol/L Normal 3.3-5.1 [facility] Comment on above: Performed By: #### L 503.0106, BTS, L500.4050, L100.0100, L501.9520 #### [facility] [address] [place], [address] Sodium [Moles/Vol] 136 mmol/L Normal 133-145 [facility] Comment on above: Performed By: #### L 503.0106, BTS, L500.4050, L100.0100, [id number] #### [facility] [address] [place], [address] Urea nitrogen [Mass/Vol] 19 mg/dL Normal 4-19 [facility] Comment on above: Performed By: #### L 503.0106, BTS, L500.4050, L100.0100, [id number] #### [facility] [address] [place], [address] CBC-Complete Blood Cnt No Di ffon 01-24-2025 Erythrocyte distribution width (RBC) [Ratio] 13.2 % Normal 11.6-14.6 [facility] Comment on above: Performed By: #### L 503.0106, BTS, L500.4050, L100.0100, L501.9520 #### [facility] [address] [place], [address] Hematocrit (Bld) [Volume fraction] 25.0 % Low 37-47 [facility] Comment on above: Performed By: #### L 503.0106, BTS, L500.4050, L100.0100, L501.9520 #### [facility] [address] [place], [address] Hemoglobin (Bld) [Mass/Vol] 8.2 g/dL Low 12.0-15.0 [facility] Comment on above: Performed By: #### L 503.0106, BTS, L500.4050, L100.0100, L501.9520 #### [facility] [address] [place], [address] MCH (RBC) [Entitic mass] 27.5 pg Normal 27.0-32.0 [facility] Comment on above: Performed By: #### L 503.0106, BTS, L500.4050, L100.0100, L501.9520 #### [facility] [address] [place], [address] MCHC (RBC) [Mass/Vol] 32.8 g/dL Normal 32-36 [facility] Comment on above: Performed By: #### L 503.0106, BTS, L500.4050, L100.0100, L501.9520 #### [facility] [address] [place], [address] MCV (RBC) [Entitic vol] 83.9 fL Normal 81-99 [facility] Comment on above: Performed By: #### L 503.0106, BTS, L500.4050, L100.0100, L501.9520 #### [facility] [address] [place], [address] Platelet mean volume (Bld) [Entitic vol] 9.1 fL Normal 6.2-12.0 [facility] Comment on above: Performed By: #### L 503.0106, BTS, L500.4050, L100.0100, L501.9520 #### [facility] [address] [place], [address] Platelets (Bld) [#/Vol] 308 10*3/uL Normal 150-450 [facility] Comment on above: Performed By: #### L 503.0106, BTS, L500.4050, L100.0100, L501.9520 #### [facility] [address] [place], [address] RBC (Bld) [#/Vol] 2.98 10*6/uL Low 4.2-5.4 [facility] Comment on above: Performed By: #### L 503.0106, BTS, L500.4050, L100.0100, L501.9520 #### [facility] [address] [place], [address] RDW SD 40.6 fl Normal 35.1-43.9 [facility] Comment on above: Performed By: #### L 503.0106, BTS, L500.4050, L100.0100, [id number] #### [facility] [address] [place], [address] WBC (Bld) [#/Vol] 8.6 10*3/uL Normal 4.4-11.0 [facility] Comment on above: Performed By: #### L 503.0106, BTS, L500.4050, L100.0100, L501.9520 #### [facility] [address] [place], [address] Carbon dioxide, total [Moles /volume] in Central venous bloodOrdered By: Darline Lundy on 01-24-2025 CO2 [Moles/Vol] 24.5 mmol/L 21.0-32.0 [facility] Chloride assayOrdered By: Luiz Lundy on 01-24-2025 Chloride [Moles/Vol] 103 mmol/L 98-108 [facility] Glomerular filtration rate ( GFR) estimation/1.73 sq m using serum, plasma, or whole bOrdered By: Darline Lundy on 01-24-2025 GFR/1.73 sq M.predicted among non-blacks MDRD (S/P/Bld) [Vol rate/Area] 86 mL/min/{1.73_m2} >60 [facility] Comment on above: mL/min/1.73m2 CKD-EP I Creatinine Equation (2020) HH, Hemoglobin AND Hematocri ton 01-24-2025 Hematocrit (Bld) [Volume fraction] 25.1 % Low 37-47 [facility] Comment on above: Performed By: #### L 503.0106, BTS, L500.4050, L100.0100, L501.9520 #### [facility] [address] [place], [address] Hemoglobin (Bld) [Mass/Vol] 8.5 g/dL Low 12.0-15.0 [facility] Comment on above: Performed By: #### L 503.0106, BTS, L500.4050, L100.0100, L501.9520 #### [facility] [address] [facility] [place], [address] Potassium measurement (mass/ volume)Ordered By: Darline Lundy on 01-24-2025 Potassium (Unsp spec) [Mass/Vol] 3.9 mmol/L 3.3-5.1 [facility] Serum creatinine measurement (mass/volume)Ordered By: Darline Lundy on 01-24-2025 Creatinine [Mass/Vol] 0.68 mg/dL Low 0.70-1.20 [facility] Serum glucose measurement (m ass/volume)Ordered By: Darline Lundy on 01-24-2025 Glucose [Mass/Vol] 97 mg/dL 70-99 [facility] Serum or plasma calcium taylor urement (mass/volume)Ordered By: Darline Lundy on 01-24-2025 Calcium [Mass/Vol] 8.4 mg/dL 7.6-11.0 [facility] Serum or plasma urea nitroge n measurement (mass/volume)Ordered By: Darline Lundy on 01-24-2025 Urea nitrogen [Mass/Vol] 19 mg/dL 4-19 [facility] Sodium levelOrdered By: Oscar Lundy on 01-24-2025 Sodium [Moles/Vol] 136 mmol/L 133-145 [facility] Basic Metabolic Profile (BMP )on 01-23-2025 BUN/CRE 26.3 RATIO High 10-20 [facility] Comment on above: Performed By: #### L 503.0106, BTS, L500.4050, L100.0100, L501.9520 #### [facility] [address] [place], [address] Calcium [Mass/Vol] 8.3 mg/dL Normal 7.6-11.0 [facility] Comment on above: Performed By: #### L 503.0106, BTS, L500.4050, L100.0100, L501.9520 #### [facility] [address] [place], [address] Chloride [Moles/Vol] 102 mmol/L Normal 98-108 [facility] Comment on above: Performed By: #### L 503.0106, BTS, L500.4050, L100.0100, L501.9520 #### [facility] [address] [place], [address] CO2 [Moles/Vol] 24.2 mmol/L Normal 21.0-32.0 [facility] Comment on above: Performed By: #### L 503.0106, BTS, L500.4050, L100.0100, L501.9520 #### [facility] [address] [place], [address] Creatinine [Mass/Vol] 0.61 mg/dL Low 0.70-1.20 [facility] Comment on above: Performed By: #### L 503.0106, BTS, L500.4050, L100.0100, L501.9520 #### [facility] [address] [place], [address] ECRCL 49.16 ml/min Low 50-250 [facility] Comment on above: Performed By: #### L 503.0106, BTS, L500.4050, L100.0100, L501.9520 #### [facility] [address] [place], [address] GAP 9 Normal 5-15 [facility] Comment on above: Performed By: #### L 503.0106, BTS, L500.4050, L100.0100, L501.9520 #### [facility] [address] [place], [address] GFR/1.73 sq M.predicted among non-blacks MDRD (S/P/Bld) [Vol rate/Area] 89 mL/min/{1.73_m2} Normal >60 [facility] Comment on above: Result Comment: mL/m in/1.73m2 CKD-EPI Creatinine Equation (2020) Performed By: #### L 503.0106, BTS, L500.4050, L100.0100, L501.9520 #### [facility] [address] [place], [address] Glucose [Mass/Vol] 105 mg/dL High 70-99 [facility] Comment on above: Performed By: #### L 503.0106, BTS, L500.4050, L100.0100, L501.9520 #### [facility] [address] [place], [address] Potassium [Moles/Vol] 3.8 mmol/L Normal 3.3-5.1 [facility] Comment on above: Performed By: #### L 503.0106, BTS, L500.4050, L100.0100, L501.9520 #### [facility] [address] [place], [address] Sodium [Moles/Vol] 135 mmol/L Normal 133-145 [facility] Comment on above: Performed By: #### L 503.0106, BTS, L500.4050, L100.0100, L501.9520 #### [facility] [address] [place], [address] Urea nitrogen [Mass/Vol] 16 mg/dL Normal 4-19 [facility] Comment on above: Performed By: #### L 503.0106, BTS, L500.4050, L100.0100, L501.9520 #### [facility] [address] [place], [address] CBC-Complete Blood Cnt No Di ffon 01-23-2025 Erythrocyte distribution width (RBC) [Ratio] 13.2 % Normal 11.6-14.6 [facility] Comment on above: Performed By: #### L 503.0106, BTS, L500.4050, L100.0100, L501.9520 #### [facility] [address] [place], [address] Hematocrit (Bld) [Volume fraction] 25.6 % Low 37-47 [facility] Comment on above: Performed By: #### L 503.0106, BTS, L500.4050, L100.0100, L501.9520 #### [facility] [address] [place], [address] Hemoglobin (Bld) [Mass/Vol] 8.6 g/dL Low 12.0-15.0 [facility] Comment on above: Performed By: #### L 503.0106, BTS, L500.4050, L100.0100, L501.9520 #### [facility] [address] [place], [address] MCH (RBC) [Entitic mass] 27.7 pg Normal 27.0-32.0 [facility] Comment on above: Performed By: #### L 503.0106, BTS, L500.4050, L100.0100, L501.9520 #### [facility] [address] [place], [address] MCHC (RBC) [Mass/Vol] 33.6 g/dL Normal 32-36 [facility] Comment on above: Performed By: #### L 503.0106, BTS, L500.4050, L100.0100, L501.9520 #### [facility] [address] [place], [address] MCV (RBC) [Entitic vol] 82.6 fL Normal 81-99 [facility] Comment on above: Performed By: #### L 503.0106, BTS, L500.4050, L100.0100, L501.9520 #### [facility] [address] [place], [address] Platelet mean volume (Bld) [Entitic vol] 9.2 fL Normal 6.2-12.0 [facility] Comment on above: Performed By: #### L 503.0106, BTS, L500.4050, L100.0100, L501.9520 #### [facility] [address] [place], [address] Platelets (Bld) [#/Vol] 250 10*3/uL Normal 150-450 [facility] Comment on above: Performed By: #### L 503.0106, BTS, L500.4050, L100.0100, L501.9520 #### [facility] [address] [place], [address] RBC (Bld) [#/Vol] 3.10 10*6/uL Low 4.2-5.4 [facility] Comment on above: Performed By: #### L 503.0106, BTS, L500.4050, L100.0100, L501.9520 #### [facility] [address] [place], [address] RDW SD 39.6 fl Normal 35.1-43.9 [facility] Comment on above: Performed By: #### L 503.0106, BTS, L500.4050, L100.0100, L501.9520 #### [facility] [address] [place], [address] WBC (Bld) [#/Vol] 8.6 10*3/uL Normal 4.4-11.0 [facility] Comment on above: Performed By: #### L 503.0106, BTS, L500.4050, L100.0100, L501.9520 #### [facility] [address] [place], [address] Ferritinon 01-23-2025 Ferritin [Mass/Vol] 1208 ng/mL High 22-378 [facility] Comment on above: Performed By: #### L 503.6030, L503.6550 #### [facility] [address] [place], [address] Iron measurement (mass/mass) Ordered By: Davian Kelly on 01-23-2025 Iron (Unsp spec) [Mass/Mass] 70 ug/dL 50-170 [facility] Iron+Iron Binding Capacityon 01-23-2025 TIBC 189 ug/dL Low 250-450 [facility] Comment on above: Performed By: #### L 503.6030, L503.6550 #### [facility] [address] [place], [address] No Panel InformationOrdered By: Davian Kelly on 01-23-2025 Unsaturated Iron Binding Capacity 119 ug/dL Low 228-428 [facility] Serum or plasma ferritin allison surement (mass/volume)Ordered By: Davian Kelly on 01-23-2025 Ferritin [Mass/Vol] 1208 ng/mL High 22-378 [facility] Serum or plasma iron saturat ion measurement (mass fraction)Ordered By: Davian Kelly on 01-23-2025 Iron saturation [Mass fraction] 37.0 % 13-59 [facility] Basic Metabolic Profile (BMP )on 01-22-2025 BUN/CRE 27.5 RATIO High 1020 [facility] Comment on above: Performed By: #### L 503.0106, BTS, L500.4050, L100.0100, L501.9520 #### [facility] [address] [place], [address] Calcium [Mass/Vol] 8.2 mg/dL Normal 7.6-11.0 [facility] Comment on above: Performed By: #### L 503.0106, BTS, L500.4050, L100.0100, L501.9520 #### [facility] [address] [place], [address] Chloride [Moles/Vol] 103 mmol/L Normal 98-108 [facility] Comment on above: Performed By: #### L 503.0106, BTS, L500.4050, L100.0100, L501.9520 #### [facility] [address] [place], [address] CO2 [Moles/Vol] 23.1 mmol/L Normal 21.0-32.0 [facility] Comment on above: Performed By: #### L 503.0106, BTS, L500.4050, L100.0100, L501.9520 #### [facility] [address] [place], [address] Creatinine [Mass/Vol] 0.64 mg/dL Low 0.70-1.20 [facility] Comment on above: Performed By: #### L 503.0106, BTS, L500.4050, L100.0100, L501.9520 #### [facility] [address] [place], [address] ECRCL 50.86 ml/min Normal 50-250 [facility] Comment on above: Performed By: #### L 503.0106, BTS, L500.4050, L100.0100, L501.9520 #### [facility] [address] [place], [address] GAP 10 Normal 5-15 [facility] Comment on above: Performed By: #### L 503.0106, BTS, L500.4050, L100.0100, L501.9520 #### [facility] [address] [place], [address] GFR/1.73 sq M.predicted among non-blacks MDRD (S/P/Bld) [Vol rate/Area] 88 mL/min/{1.73_m2} Normal >60 [facility] Comment on above: Result Comment: mL/m in/1.73m2 CKD-EPI Creatinine Equation (2020) Performed By: #### L 503.0106, BTS, L500.4050, L100.0100, L501.9520 #### [facility] [address] [place], [address] Glucose [Mass/Vol] 135 mg/dL High 70-99 [facility] Comment on above: Performed By: #### L 503.0106, BTS, L500.4050, L100.0100, L501.9520 #### [facility] [address] [place], [address] Potassium [Moles/Vol] 4.2 mmol/L Normal 3.3-5.1 [facility] Comment on above: Performed By: #### L 503.0106, BTS, L500.4050, L100.0100, L501.9520 #### [facility] [address] [place], [address] Sodium [Moles/Vol] 136 mmol/L Normal 133-145 [facility] Comment on above: Performed By: #### L 503.0106, BTS, L500.4050, L100.0100, L501.9520 #### [facility] [address] [place], [address] Urea nitrogen [Mass/Vol] 18 mg/dL Normal 4-19 [facility] Comment on above: Performed By: #### L 503.0106, BTS, L500.4050, L100.0100, L501.9520 #### [facility] [address] [place], [address] CBC-Complete Blood Cnt No Di ffon 01-22-2025 Erythrocyte distribution width (RBC) [Ratio] 13.0 % Normal 11.6-14.6 [facility] Comment on above: Performed By: #### L 503.0106, BTS, L500.4050, L100.0100, L501.9520 #### [facility] [address] [place], [address] Hematocrit (Bld) [Volume fraction] 26.6 % Low 37-47 [facility] Comment on above: Performed By: #### L 503.0106, BTS, L500.4050, L100.0100, L501.9520 #### [facility] [address] [place], [address] Hemoglobin (Bld) [Mass/Vol] 9.1 g/dL Low 12.0-15.0 [facility] Comment on above: Performed By: #### L 503.0106, BTS, L500.4050, L100.0100, L501.9520 #### [facility] [address] [place], [address] MCH (RBC) [Entitic mass] 27.9 pg Normal 27.0-32.0 [facility] Comment on above: Performed By: #### L 503.0106, BTS, L500.4050, L100.0100, L501.9520 #### [facility] [address] [place], [address] MCHC (RBC) [Mass/Vol] 34.2 g/dL Normal 32-36 [facility] Comment on above: Performed By: #### L 503.0106, BTS, L500.4050, L100.0100, L501.9520 #### [facility] [address] [place], [address] MCV (RBC) [Entitic vol] 81.6 fL Normal 81-99 [facility] Comment on above: Performed By: #### L 503.0106, BTS, L500.4050, L100.0100, L501.9520 #### [facility] [address] [place], [address] Platelet mean volume (Bld) [Entitic vol] 9.2 fL Normal 6.2-12.0 [facility] Comment on above: Performed By: #### L 503.0106, BTS, L500.4050, L100.0100, L501.9520 #### [facility] [address] [place], [address] Platelets (Bld) [#/Vol] 211 10*3/uL Normal 150-450 [facility] Comment on above: Performed By: #### L 503.0106, BTS, L500.4050, L100.0100, L501.9520 #### [facility] [address] [place], [address] RBC (Bld) [#/Vol] 3.26 10*6/uL Low 4.2-5.4 [facility] Comment on above: Performed By: #### L 503.0106, BTS, L500.4050, L100.0100, L501.9520 #### [facility] [address] [place], [address] RDW SD 39.3 fl Normal 35.1-43.9 [facility] Comment on above: Performed By: #### L 503.0106, BTS, L500.4050, L100.0100, L501.9520 #### [facility] [address] [place], [address] WBC (Bld) [#/Vol] 8.6 10*3/uL Normal 4.4-11.0 [facility] Comment on above: Performed By: #### L 503.0106, BTS, L500.4050, L100.0100, L501.9520 #### [facility] [address] [place], [address] Basic Metabolic Profile (BMP )on 01-21-2025 BUN/CRE 16.5 RATIO Normal 10-20 [facility] Comment on above: Performed By: #### L 503.0106, BTS, L500.4050, L100.0100, L501.9520 #### [facility] [address] [place], [address] Calcium [Mass/Vol] 7.8 mg/dL Normal 7.6-11.0 [facility] Comment on above: Performed By: #### L 503.0106, BTS, L500.4050, L100.0100, L501.9520 #### [facility] [address] [place], [address] Chloride [Moles/Vol] 103 mmol/L Normal 98-108 [facility] Comment on above: Performed By: #### L 503.0106, BTS, L500.4050, L100.0100, L501.9520 #### [facility] [address] [place], [address] CO2 [Moles/Vol] 22.5 mmol/L Normal 21.0-32.0 [facility] Comment on above: Performed By: #### L 503.0106, BTS, L500.4050, L100.0100, L501.9520 #### [facility] [address] [place], [address] Creatinine [Mass/Vol] 0.69 mg/dL Low 0.70-1.20 [facility] Comment on above: Performed By: #### L 503.0106, BTS, L500.4050, L100.0100, L501.9520 #### [facility] [address] [place], [address] ECRCL 49.36 ml/min Low 50-250 [facility] Comment on above: Performed By: #### L 503.0106, BTS, L500.4050, L100.0100, L501.9520 #### [facility] [address] [place], [address] GAP 10 Normal 5-15 [facility] Comment on above: Performed By: #### L 503.0106, BTS, L500.4050, L100.0100, L501.9520 #### [facility] [address] [place], [address] GFR/1.73 sq M.predicted among non-blacks MDRD (S/P/Bld) [Vol rate/Area] 86 mL/min/{1.73_m2} Normal >60 [facility] Comment on above: Result Comment: mL/m in/1.73m2 CKD-EPI Creatinine Equation (2020) Performed By: #### L 503.0106, BTS, L500.4050, L100.0100, L501.9520 #### [facility] [address] [place], [address] Glucose [Mass/Vol] 167 mg/dL High 70-99 [facility] Comment on above: Performed By: #### L 503.0106, BTS, L500.4050, L100.0100, L501.9520 #### [facility] [address] [place], [address] Potassium [Moles/Vol] 3.8 mmol/L Normal 3.3-5.1 [facility] Comment on above: Performed By: #### L 503.0106, BTS, L500.4050, L100.0100, L501.9520 #### [facility] [address] [place], [address] Sodium [Moles/Vol] 135 mmol/L Normal 133-145 [facility] Comment on above: Performed By: #### L 503.0106, BTS, L500.4050, L100.0100, L501.9520 #### [facility] [address] [place], [address] Urea nitrogen [Mass/Vol] 11 mg/dL Normal 4-19 [facility] Comment on above: Performed By: #### L 503.0106, BTS, L500.4050, L100.0100, L501.9520 #### [facility] [address] [place], [address] CBC-Complete Blood Cnt No Di ffon 01-21-2025 Erythrocyte distribution width (RBC) [Ratio] 13.1 % Normal 11.6-14.6 [facility] Comment on above: Performed By: #### L 503.0106, BTS, L500.4050, L100.0100, L501.9520 #### [facility] [address] [place], [address] Hematocrit (Bld) [Volume fraction] 28.9 % Low 37-47 [facility] Comment on above: Performed By: #### L 503.0106, BTS, L500.4050, L100.0100, [id number] #### [facility] [address] [place], [address] Hemoglobin (Bld) [Mass/Vol] 9.7 g/dL Low 12.0-15.0 [facility] Comment on above: Performed By: #### L 503.0106, BTS, L500.4050, L100.0100, [id number] #### [facility] [address] [place], [address] MCH (RBC) [Entitic mass] 27.6 pg Normal 27.0-32.0 [facility] Comment on above: Performed By: #### L 503.0106, BTS, L500.4050, L100.0100, L501.9520 #### [facility] [address] [place], [address] MCHC (RBC) [Mass/Vol] 33.6 g/dL Normal 32-36 [facility] Comment on above: Performed By: #### L 503.0106, BTS, L500.4050, L100.0100, L501.9520 #### [facility] [address] [place], [address] MCV (RBC) [Entitic vol] 82.3 fL Normal 81-99 [facility] Comment on above: Performed By: #### L 503.0106, BTS, L500.4050, L100.0100, L501.9520 #### [facility] [address] [place], [address] Platelet mean volume (Bld) [Entitic vol] 8.8 fL Normal 6.2-12.0 [facility] Comment on above: Performed By: #### L 503.0106, BTS, L500.4050, L100.0100, L501.9520 #### [facility] [address] [place], [address] Platelets (Bld) [#/Vol] 209 10*3/uL Normal 150-450 [facility] Comment on above: Performed By: #### L 503.0106, BTS, L500.4050, L100.0100, L501.9520 #### [facility] [address] [place], [address] RBC (Bld) [#/Vol] 3.51 10*6/uL Low 4.2-5.4 [facility] Comment on above: Performed By: #### L 503.0106, BTS, L500.4050, L100.0100, L501.9520 #### [facility] [address] [place], [address] RDW SD 39.8 fl Normal 35.1-43.9 [facility] Comment on above: Performed By: #### L 503.0106, BTS, L500.4050, L100.0100, L501.9520 #### [facility] [address] [place], [address] WBC (Bld) [#/Vol] 12.1 10*3/uL High 4.4-11.0 [facility] Comment on above: Performed By: #### L 503.0106, BTS, L500.4050, L100.0100, L501.9520 #### [facility] [address] [place], [address] Absolute lymphocyte countOrd ered By: Stephan Beard on 01-20-2025 Lymphocytes Auto (Unsp spec) [#/Vol] 0.94 10*3/uL 0.83-4.51 [facility] Absolute neutrophil countOrd ered By: Stehpan Beard on 01-20-2025 Neutrophils (Bld) [#/Vol] 6.9 10*3/uL 2.0-7.7 [facility] Automated lymphocyte count a s percentage of total leukocytesOrdered By: Stephan Beard on 01-20-2025 Lymphocytes/100 WBC Auto (Unsp spec) 11.1 % Low 19-41 [facility] Basophil percentageOrdered B y: Stephan Beard on 01-20-2025 Basophils/100 WBC (Bld) 0.1 % 0-1 [facility] Bilirubin Test strip Ql (U)O rdered By: Stephan Beard on 01-20-2025 Bilirubin Ql (U) Negative Negative [facility] Bilirubin, totalOrdered By: Stephan Beard on 01-20-2025 Bilirubin [Mass/Vol] 0.63 mg/dL 0.00-1.30 [facility] CBC W/Diff, Automatedon 01-11 Absolute Lymph 0.94 X10 3/uL Normal 0.83-4.51 [facility] Comment on above: Performed By: #### L 503.0106, BTS, L500.4050, L100.0100, L501.9520 #### [facility] [address] [place], [address] Absolute Neut 6.9 X10 3/uL Normal 2.0-7.7 [facility] Comment on above: Performed By: #### L 503.0106, BTS, L500.4050, L100.0100, L501.9520 #### [facility] [address] [place], [address] Basophils/100 WBC (Bld) 0.1 % Normal 0-1 [facility] Comment on above: Performed By: #### L 503.0106, BTS, L500.4050, L100.0100, L501.9520 #### [facility] [address] [place], [address] Eosinophils/100 WBC (Bld) 0.1 % Normal 0-5 [facility] Comment on above: Performed By: #### L 503.0106, BTS, L500.4050, L100.0100, L501.9520 #### [facility] [address] [place], [address] Erythrocyte distribution width (RBC) [Ratio] 13.1 % Normal 11.6-14.6 [facility] Comment on above: Performed By: #### L 503.0106, BTS, L500.4050, L100.0100, L501.9520 #### [facility] [address] [place], [address] Hematocrit (Bld) [Volume fraction] 34.5 % Low 37-47 [facility] Comment on above: Performed By: #### L 503.0106, BTS, L500.4050, L100.0100, L501.9520 #### [facility] [address] [place], [address] Hemoglobin (Bld) [Mass/Vol] 11.1 g/dL Low 12.0-15.0 [facility] Comment on above: Performed By: #### L 503.0106, BTS, L500.4050, L100.0100, L501.9520 #### [facility] [address] [place], [address] IG% 0.400 Normal 0.0-0.9 [facility] Comment on above: Result Comment: IG% - Immature Granulocytes (promyelocytes, myelocytes and metamyelocytes) > 1% indicates that a LEFT SHIFT is Present. Performed By: #### L 503.0106, BTS, L500.4050, L100.0100, L501.9520 #### [facility] [address] [place], [address] Lymphocytes/100 WBC (Bld) 11.1 % Low 19-41 [facility] Comment on above: Performed By: #### L 503.0106, BTS, L500.4050, L100.0100, L501.9520 #### [facility] [address] [place], [address] MCH (RBC) [Entitic mass] 27.3 pg Normal 27.0-32.0 [facility] Comment on above: Performed By: #### L 503.0106, BTS, L500.4050, L100.0100, L501.9520 #### [facility] [address] [place], [address] MCHC (RBC) [Mass/Vol] 32.2 g/dL Normal 32-36 [facility] Comment on above: Performed By: #### L 503.0106, BTS, L500.4050, L100.0100, L501.9520 #### [facility] [address] [place], [address] MCV (RBC) [Entitic vol] 84.8 fL Normal 81-99 [facility] Comment on above: Performed By: #### L 503.0106, BTS, L500.4050, L100.0100, L501.9520 #### [facility] [address] [place], [address] Monocytes/100 WBC (Bld) 7.2 % Normal 0-10 [facility] Comment on above: Performed By: #### L 503.0106, BTS, L500.4050, L100.0100, L501.9520 #### [facility] [address] [place], [address] Neutrophils/100 WBC (Bld) 81.1 % High 47-70 [facility] Comment on above: Performed By: #### L 503.0106, BTS, L500.4050, L100.0100, L501.9520 #### [facility] [address] [place], [address] Nucleated RBC (Bld) [#/Vol] 0 10*3/uL Normal 0-5 [facility] Comment on above: Performed By: #### L 503.0106, BTS, L500.4050, L100.0100, L501.9520 #### [facility] [address] [place], [address] Platelet mean volume (Bld) [Entitic vol] 8.8 fL Normal 6.2-12.0 [facility] Comment on above: Performed By: #### L 503.0106, BTS, L500.4050, L100.0100, L501.9520 #### [facility] [address] [place], [address] Platelets (Bld) [#/Vol] 241 10*3/uL Normal 150-450 [facility] Comment on above: Performed By: #### L 503.0106, BTS, L500.4050, L100.0100, L501.9520 #### [facility] [address] [place], [address] RBC (Bld) [#/Vol] 4.07 10*6/uL Low 4.2-5.4 [facility] Comment on above: Performed By: #### L 503.0106, BTS, L500.4050, L100.0100, L501.9520 #### [facility] [address] [place], [address] RDW SD 40.1 fl Normal 35.1-43.9 [facility] Comment on above: Performed By: #### L 503.0106, BTS, L500.4050, L100.0100, L501.9520 #### [facility] [address] [place], [address] WBC (Bld) [#/Vol] 8.5 10*3/uL Normal 4.4-11.0 [facility] Comment on above: Performed By: #### L 503.0106, BTS, L500.4050, L100.0100, L501.9520 #### [facility] [address] [place], [address] Comprehensive Metabolic [facility] ilon 01-20-2025 Albumin [Mass/Vol] 3.6 g/dL Normal 3.4-4.8 [facility] Comment on above: Performed By: #### L 503.0106, BTS, L500.4050, L100.0100, L501.9520 #### [facility] [address] [place], [address] Albumin/Globulin [Mass ratio] 1.4 {ratio} Normal 0.9-2.4 [facility] Comment on above: Performed By: #### L 503.0106, BTS, L500.4050, L100.0100, L501.9520 #### [facility] [address] [place], [address] ALK PHOS 51 U/L Normal 35-104 [facility] Comment on above: Performed By: #### L 503.0106, BTS, L500.4050, L100.0100, L501.9520 #### [facility] [address] [place], [address] ALT [Catalytic activity/Vol] U/L Normal <=34 [facility] Comment on above: Performed By: #### L 503.0106, BTS, L500.4050, L100.0100, L501.9520 #### [facility] [address] [place], [address] AST [Catalytic activity/Vol] 19 U/L Normal <=31 [facility] Comment on above: Performed By: #### L 503.0106, BTS, L500.4050, L100.0100, L501.9520 #### [facility] [address] [place], [address] Bilirubin [Mass/Vol] 0.63 mg/dL Normal 0.00-1.30 [facility] Comment on above: Performed By: #### L 503.0106, BTS, L500.4050, L100.0100, L501.9520 #### [facility] [address] [place], [address] BUN/CRE 19.9 RATIO Normal 10-20 [facility] Comment on above: Performed By: #### L 503.0106, BTS, L500.4050, L100.0100, L501.9520 #### [facility] [address] [place], [address] Calcium [Mass/Vol] 8.2 mg/dL Normal 7.6-11.0 [facility] Comment on above: Performed By: #### L 503.0106, BTS, L500.4050, L100.0100, L501.9520 #### [facility] [address] [place], [address] Chloride [Moles/Vol] 100 mmol/L Normal 98-108 [facility] Comment on above: Performed By: #### L 503.0106, BTS, L500.4050, L100.0100, L501.9520 #### [facility] [address] [place], [address] CO2 [Moles/Vol] 21.8 mmol/L Normal 21.0-32.0 [facility] Comment on above: Performed By: #### L 503.0106, BTS, L500.4050, L100.0100, L501.9520 #### [facility] [address] [place], [address] Creatinine [Mass/Vol] 0.65 mg/dL Low 0.70-1.20 [facility] Comment on above: Performed By: #### L 503.0106, BTS, L500.4050, L100.0100, L501.9520 #### [facility] [address] [place], [address] ECRCL 50.52 ml/min Normal 50-250 [facility] Comment on above: Performed By: #### L 503.0106, BTS, L500.4050, L100.0100, L501.9520 #### [facility] [address] [place], [address] GAP 12 Normal 5-15 [facility] Comment on above: Performed By: #### L 503.0106, BTS, L500.4050, L100.0100, L501.9520 #### [facility] [address] [place], [address] GFR/1.73 sq M.predicted among non-blacks MDRD (S/P/Bld) [Vol rate/Area] 87 mL/min/{1.73_m2} Normal >60 [facility] Comment on above: Result Comment: mL/m in/1.73m2 CKD-EPI Creatinine Equation (2020) Performed By: #### L 503.0106, BTS, L500.4050, L100.0100, L501.9520 #### [facility] [address] [place], [address] Globulin (S) [Mass/Vol] 2.7 g/dL Normal 2.2-4.2 [facility] Comment on above: Performed By: #### L 503.0106, BTS, L500.4050, L100.0100, L501.9520 #### [facility] [address] [place], [address] Glucose [Mass/Vol] 98 mg/dL Normal 70-99 [facility] Comment on above: Performed By: #### L 503.0106, BTS, L500.4050, L100.0100, L501.9520 #### [facility] [address] [place], [address] Potassium [Moles/Vol] 3.5 mmol/L Normal 3.3-5.1 [facility] Comment on above: Performed By: #### L 503.0106, BTS, L500.4050, L100.0100, L501.9520 #### [facility] [address] [place], [address] Sodium [Moles/Vol] 134 mmol/L Normal 133-145 [facility] Comment on above: Performed By: #### L 503.0106, BTS, L500.4050, L100.0100, L501.9520 #### [facility] [address] [place], [address] T PROT 6.3 g/dL Normal 5.9-8.4 [facility] Comment on above: Performed By: #### L 503.0106, BTS, L500.4050, L100.0100, L501.9520 #### [facility] [address] [place], [address] Urea nitrogen [Mass/Vol] 13 mg/dL Normal 4-19 [facility] Comment on above: Performed By: #### L 503.0106, BTS, L500.4050, L100.0100, L501.9520 #### [facility] [address] [place], [address] Consultation - Orthopedicson 01-20-2025 Consultation - Orthopedics [facility] Medical Records Department [address] [place] [address] Consultation - Orthopedics 01/20/25 1415 MR#: [id number] Acct: [id number] Name: MONISHA COHN Rep #: [id number] : 1940 84 From: Braulio Tijerina MD PCP: Tressa Rosales Status:ADM IN Location: MS3 FR804-6 HPI Consult Data Date of Consult: 01/20/25 [...] Patient notes that [facility] and ambulates with a walker or uses a wheelchair. She does not walk independently. She was reported to have fallen yesterday and sustained an injury to her right hand and hip. She was seen at an outside hospital and requested transfer to [place] as they did not have orthopedics. She [...] denies any current treatment or active malignancies. [facility] Medical History Nocturia Urge incontinence Overactive bladder Former tobacco use Depression Hypertension Fall [facility] (closed head injury) Presence of stent in coronary artery ( 12/22/21) Atherosclerotic heart disease of [place] coronary artery without angina pectoris ST elevation [...] Tobacco: How (more content not included)... Normal [facility] Decalcification bone/plaqueo n 01-20-2025 Decalcification bone/plaque ---- Patient Age/Sex Location Account Attending Physician ---- MONISHA COHN 84/F MS3 [id number] Dr. Davian Kelly MD ---- Specimen: [id number] Received: 01/23/25 Status: CAROL Mccauley Num: [id number] Spec Type: TOTAL HIP Subm Dr: Dr. [...] name and date of . Designated as " right hip bone" is a 4.5 x 4.1 x 3.9 [...] medullary bone. No definitive lesions are identified. Psych Sales Specialist sections are submitted in 2 cassettes, following decalcification, as follows: A1: Articular cartilage, including area of detached cartilageA2: Congested medullary bone, area of detached cartilage [place] 01/23/2025 [facility]:[id number],[id number] ---- Patient Age/Sex Location Account Attending Physician ---- MONISHA COHN 84/F MS3 [id number] Dr. Davian Kelly MD ---- Signed (signature on file) Dr. Debbie Corea MD 01/27/25 1357 ---- Normal [facility] Comment on above: Performed By: #### L 503.0106, BTS, L500.4050, L100.0100, L501.9520 #### [facility] [address] [place], [address] ED NOTEon 01-20-2025 ED NOTE HNO ID: [id number] Author: FLORIDALMA SZYMANSKI, AUGUSTIN Service: Emergency Medicine Author Type: Registered Nurse Type: ED Notes Filed: 01/20/2025 00:07 Note Text: [facility] here, chart and report provided along with disk of films Normal [facility] Eosinophil percentageOrdered By: Stephan Beard on 01-20-2025 Eosinophils/100 WBC (Bld) 0.1 % 0-5 [facility] Folate [Mass/volume] in Seru m or PlasmaOrdered By: Stephan Beard on 01-20-2025 Folate [Mass/Vol] 6.23 ng/mL 4.60-34.80 [facility] Comment on above: Hemolysis, Results w ill be affected, Requires Recollection. Folates,Serum (Folic Acid)on 01-20-2025 FOLATES,SERUM 6.23 ng/mL Normal 4.60-34.80 [facility] Comment on above: Result Comment: Hemo lysis, Results will be affected, Requires Recollection. Performed By: #### L 503.0106, BTS, L500.4050, L100.0100, L501.9520 #### [facility] [address] [facility] [place], [address] H AND P Exam - Hospitaliston 01-20-2025 H&P Exam - Hospitalist [facility] Medical Records Department [address] [place] [address] H P Exam - Hospitalist 01/20/25 0112 MR#: [id number] Acct: [id number] Name: MONISHA COHN Rep #: [id number] : 1940 84 From: Stephan Martel DO PCP: Tressa Rosales Status:ADM IN [place] [facility] [id number] - General General Date of Admission: 01/20/25 Date of Service: 01/20/25 Chief Complaint: Fall with Right Hip Fracture. HPI Narrative MONISHA COHN, is a 84 F with a past medical history of essential hypertension; currently not on treatment, hyperlipidemia; on atorvastatin, former tobacco abuse; with subsequent COPD and pulmonary hypertension, CAD; with RCA stent at [facility] in [place] (2009) and subsequent inferior wall ST elevation OR s/p RCA stent with cardiogenic shock and [...] recently diagnosed COVID-19 who was transferred from [facility] after she was diagnosed with [...] LOC with her fall. Dr. [place] of [facility] spoke to Dr. Tijerina of the orthopedic service here who recommended admission to the hospitalist service with formal consultation pending in the a.m. for ORIF. She was then admitted to the general medical floor for ongoing care for stay that is expected to extend beyond 2 midnights. [facility] Medical History Nocturia Urge incontinence Overactive bladder Former tobacco use Depression Hypertension Fall [facility] (closed head injury) Presence of stent in coronary artery ( 12/22/21) Atherosclerotic heart disease of [place] coronary artery without angina pectoris ST elevation [...] PO .COMPLEX (more content not included)... Normal [facility] Hip Min 2 Views (Portable)on 01-20-2025 Hip Min 2 Views (Portable) [facility] Imaging Services [address] [place] [address] Hip Min 2 Views (Portable) MR#: [id number] Acct: [id number] Name: MONISHA COHN Rep #: [id number] : 1940 F 84 From: Law brewster MD PCP: Tressa Rosales Status: ADM IN Study: Hip Min 2 Views (Portable) Date of Exam: 01/20 Exam# [id number] Ordering Dr: Braulio Tijerina MD PROCEDURE: HIP [...] chronic and surgical changes. Reading Location: [facility] CC: Dr. Braulio Tijerina MD; Tressa Rosales Yard Supervisor Cotton Gin: Signed Normal [facility] Hip Min 2 Views (Portable) [facility] Imaging Services [address] [place] [address] Hip Min 2 Views (Portable) MR#: [id number] Acct: [id number] Name: MONISHA COHN Rep #: [id number] : 1940 F 84 From: Law brewster MD PCP: Tressa Rosales Status: ADM IN Study: Hip Min 2 Views (Portable) Date of Exam: 01/20 Exam# [id number] Ordering Dr: Braulio Tijerina MD PROCEDURE: HIP [...] CC: Dr. Braulio Tijerina MD; Tressa Rosales Yard Supervisor Cotton Gin: Signed Normal [facility] Immature granulocytes/100 WB C Auto (Bld)Ordered By: Stephan Beard on 01-20-2025 Immature granulocytes/100 WBC (Bld) 0.400 % 0.0-0.9 [facility] Comment on above: IG% - Immature Granu locytes (promyelocytes, myelocytes and metamyelocytes) > 1% indicates that a LEFT SHIFT is Present. Ketones Test strip Ql (U)Ord ered By: Stephan Beard on 01-20-2025 Ketones Ql (U) 15 mg/dl High Negative [facility] L501.4021on 01-20-2025 Trop T High Sen 27 ng/L High <=14 [facility] Comment on above: Performed By: #### L 503.0106, BTS, L500.4050, L100.0100, L501.9520 #### [facility] [address] [facility] [place], [address] Laboratory - Chemistry and C hemistry - challengeOrdered By: Stephan Beard on 01-20-2025 AST [Catalytic activity/Vol] 19 U/L <32 [facility] MR/POSTOP.ANEon 01-20-2025 MR/POSTOP.ANE [facility] Medical Records Department [address] [place] [address] Anesthesia Postop Eval I 01/20/25 1715 MR#: [id number] Acct: [id number] Name: MONISHA COHN Rep #: [id number] : 1940 84 From: Brennen Rojas REHABILITATION MANAGER PCP: Tressa Rosales Status:ADM IN Y Race: C Location: AZ3 DO227-3 Anesthesia: Postop Eval I Current Vital Signs [...] Postop Eval 1 completed: Yes 01/20/251716 Date Brennen Rojas ELIEL Cosigner Signature: CC: Signed Normal [facility] MR/[id number] 01-20-2025 [facility] Medical Records Department [address] [place] [address] Anesthesia Postop Eval II 01/20/251705 MR#: [id number] Acct: [id number] Name: MONISHA COHN Rep #: [id number] : 1940 84 From: Jareth Shepard MD PCP: Tressa Rosales Status:ADM IN Y Race: C [place] [facility] [id number] Anesthesia Postop Eval I Sum Anesthesia Postop [...] MD Cosigner Signature: Date CC: Signed Normal [facility] Microscopic analysis of urin e for red blood cells (RBC)Ordered By: Stephan Beard on 01-20-2025 Microscopic analysis of urine for red blood cells (RBC) 0 SEEN /hpf 0-5 [facility] Monocyte percentageOrdered B y: Stephan Beard on 01-20-2025 Monocytes/100 WBC (Bld) 7.2 % 0-10 [facility] Mucus LM Ql (Urine sed)Order ed By: Stephan Beard on 01-20-2025 Mucus Ql (Urine sed) 0 SEEN /hpf [facility] Neutrophil percentageOrdered By: Stephan Beard on 01-20-2025 Neutrophils/100 WBC (Bld) 81.1 % High 47-70 [facility] Nitrite Test strip Ql (U)Ord ered By: Stephan Beard on 01-20-2025 Nitrite Ql (U) Negative Negative [facility] Nucleated red blood cell per centageOrdered By: Stephan Beard on 01-20-2025 Nucleated RBC/100 WBC (Bld) [Ratio] 0 % 0-5 [facility] Operative Reporton Operative Report [facility] Medical Records Department [address] [place] [address] Operative Report 01/20/25 1545 MR#: [id number] Acct: [id number] Name: MONISHA COHN Rep #: [id number] : 1940 84 From: Braulio Tijerina MD PCP: Tressa Rosales Status:ADM IN [id number] (Standard) Operative Information Date of Procedure: 01/20/25 Pre-Operative Diagnosis: Right hip subcapital femoral neck fracture Post-Operative Diagnosis: Right hip subcapital femoral neck fracture Surgery/Procedure Performed: Right hip endoprosthesis iron melter: Yes Livestock Sales Representative: Edyta Bhatti Tasks completed by assistance representative: Opening, Closing, Implanting device and Retracting Additional speech pathology assistant?: No Type of Anesthesia: General RN [...] femoral stem size 4 high offset 2. [place] [employer] cobalt-chromium 43 mm femoral head with [...] the emmanuel (more content not included)... Normal [facility] Phosphoruson 01-20-2025 Phosphate [Mass/Vol] 2.4 mg/dL Low 2.7-4.5 [facility] Comment on above: Performed By: #### L 501.2300 #### [facility] [address] [place], [address] Protein Test strip Ql (U)Ord ered By: Stephan Beard on 01-20-2025 Protein Ql (U) 15 mg/dl High Negative [facility] Serum globulin measurementOr dered By: Stephan Beard on 01-20-2025 Globulin (S) [Mass/Vol] 2.7 g/dL 2.2-4.2 [facility] Serum or plasma alanine swenson otransferase (ALT) measurementOrdered By: Stephan Beard on 01-20-2025 ALT [Catalytic activity/Vol] U/L <35 [facility] Serum or plasma albumin taylor urement (mass/volume)Ordered By: Stephan Beard on 01-20-2025 Albumin [Mass/Vol] 3.6 g/dL 3.4-4.8 [facility] Serum or plasma albumin/glob ulin mass ratioOrdered By: Stephan Beard on 01-20-2025 Albumin/Globulin [Mass ratio] 1.4 {ratio} 0.9-2.4 [facility] Serum or plasma alkaline nhi sphatase measurementOrdered By: Stephan Beard on 01-20-2025 ALP [Catalytic activity/Vol] 51 U/L 35-104 [facility] Squamous epithelial cells de tection in urine sediment by light microscopyOrdered By: Stephan Beard on 01-20-2025 Epithelial cells.squamous LM Ql (Urine sed) 0 SEEN /hpf -10 [facility] TSH DL <= 0.005 mIU/L QnOrde red By: Stephan Beard on 01-20-2025 TSH Qn 1.900 uIU/mL 0.300-4.200 [facility] Thyroid Stim Hormone (TSH)on 01-20-2025 TSH 1.900 uIU/mL Normal 0.300-4.200 [facility] Comment on above: Performed By: #### L 503.0106, BTS, L500.4050, L100.0100, L501.9520 #### [facility] [address] [place], [address] Total proteinOrdered By: Melchor Beard on 01-20-2025 Protein [Mass/Vol] 6.3 g/dL 5.9-8.4 [facility] Troponin T HS 2 HRon 025 Trop T High Sen 29 ng/L High <=14 [facility] Comment on above: Performed By: #### L 503.0106, BTS, L500.4050, L100.0100, L501.9520 #### [facility] [address] [place], [address] Troponin T HS 4 HRon 025 Trop T High Sen 28 ng/L High <=14 [facility] Comment on above: Performed By: #### L 503.0106, BTS, L500.4050, L100.0100, L501.9520 #### [facility] [address] [place], [address] Troponin T.cardiac [Mass/vol ume] in Serum or Plasma by High sensitivity methodOrdered By: Stephan Beard on 01-20-2025 Troponin T.cardiac High sensitivity method [Mass/Vol] 28 ng/L High <14 [facility] Troponin T.cardiac High sensitivity method [Mass/Vol] 29 ng/L High <14 [facility] Troponin T.cardiac High sensitivity method [Mass/Vol] 27 ng/L High <14 [facility] [facility] Type AND Screenon 01-20-2025 ABO and Rh group Nom (Bld) Blood group B Rh(D) positive Normal [facility] Comment on above: Order Comment: S Performed By: #### L 503.0106, BTS, L500.4050, L100.0100, L501.9520 #### [facility] [address] [place], [address] Urinalysis, Completeon 01-20 BACTERIA 0 SEEN Normal None Seen [facility] Comment on above: Order Comment: CLEAN CATCH Performed By: #### L 503.0106, BTS, L500.4050, L100.0100, L501.9520 #### [facility] [address] [place], [address] EPI,SQUAMOUS 0 SEEN Normal 5-10 [facility] Comment on above: Order Comment: CLEAN CATCH Performed By: #### L 503.0106, BTS, L500.4050, L100.0100, L501.9520 #### [facility] [address] [place], [address] Mucus Ql (Urine sed) 0 SEEN Normal [facility] Comment on above: Order Comment: CLEAN CATCH Performed By: #### L 503.0106, BTS, L500.4050, L100.0100, L501.9520 #### [facility] [address] [place], [address] RBC 0 SEEN Normal 0-5 [facility] Comment on above: Order Comment: CLEAN CATCH Performed By: #### L 503.0106, BTS, L500.4050, L100.0100, L501.9520 #### [facility] [address] [place], [address] WBC 0 SEEN Normal 0-5 [facility] Comment on above: Order Comment: CLEAN CATCH Performed By: #### L 503.0106, BTS, L500.4050, L100.0100, L501.9520 #### [facility] [address] [place], [address] Urine clarityOrdered By: Melchor Beard on 01-20-2025 Clarity (U) Sl. Cloudy Clear [facility] Urine color determinationOrd ered By: Stephan Beard on 01-20-2025 Color (U) Yellow Yellow [facility] Urine glucose detectionOrder ed By: Stephan Beard on 01-20-2025 Glucose Ql (U) Normal mg/dl Normal [facility] Urine leukocyte esterase det ection by dipstickOrdered By: Stephan Beard on 01-20-2025 Leukocyte esterase Test strip Ql (U) Negative Negative [facility] Urine pHOrdered By: Stephan hagen on 01-20-2025 pH (U) 6.5 [pH] 5.0 - 8.0 [facility] Urine sediment bacteria coun t by microscopy (number/high power field)Ordered By: Stephan Beard on 01-20-2025 Bacteria LM.HPF (Urine sed) [#/Area] 0 /[HPF] None Seen [facility] Urine specific gravity measu rementOrdered By: Stephan Beard on 01-20-2025 Specific gravity (U) [Rel density] 1.010 1.002-1.030 [facility] Urine urobilinogen measureme ntOrdered By: Stephan Beard on 01-20-2025 Urobilinogen Ql (U) Normal mg/dl Normal [facility] Vitamin B12on 01-20-2025 Cobalamin (Vitamin B12) [Mass/Vol] 1234 pg/mL High 180-914 [facility] Comment on above: Performed By: #### L 503.0106, BTS, L500.4050, L100.0100, L501.9520 #### [facility] [address] [place], [address] Vitamin B12 ser/plasOrdered By: Stephan Beard on 01-20-2025 Cobalamin (Vitamin B12) [Mass/Vol] 1234 pg/mL High 180-914 [facility] White blood cell countOrdere d By: Stephan Beard on 01-20-2025 White blood cell count 0 SEEN /hpf 0-5 [facility] ALLIED HEALTHon 01-19-2025 ALLIED HEALTH HNO ID: [id number] Author: ARSALAN MARTINES RT(R) Service: Radiology Author Type: Train Braker Type: Allied Health Filed: 01/19/2025 21:08 Note [...] PATIENT PRESENTS WITH AN IMPLANTABLE OR ATTACHED NUCLEAR WASTE PROCESS OPERATOR: No RADIOLOGY DEPARTMENT: CT; Exam(s) Completed: Brain and Spine . Anesthesia: No PERIPHERAL IV DATA: Not applicable SIGNED BY: RT Mary Jane(R) January 19, 2025 9:08 PM Normal [facility] Basic metabolic 2000 panelon 01-19-2025 Anion gap [Moles/Vol] 11 mmol/L Normal 8-15 [facility] Comment on above: Order Comment: Speci men Type: BLOOD SPECIMEN Ordering Facility: [facility] Address: [address] [place] [address] Performed By: #### 2 4321-2 #### [facility] CLIA [id number] [address] [place] [address] [place] Calcium [Mass/Vol] 8.7 mg/dL Normal 8.5-10.2 [facility] Comment on above: Order Comment: Speci men Type: BLOOD SPECIMEN Ordering Facility: [facility] Address: [address] [place] [address] Performed By: #### 2 4321-2 #### [facility] CLIA [id number] [address] [place] [address] [place] Chloride [Moles/Vol] 100 mmol/L Normal 98-107 [facility] Comment on above: Order Comment: Speci men Type: BLOOD SPECIMEN Ordering Facility: [facility] Address: [address] [place] [address] Performed By: #### 2 4321-2 #### [facility] CLIA [id number] [address] [place] [address] [place] CO2 [Moles/Vol] 23 mmol/L Normal 22-30 [facility] Comment on above: Order Comment: Speci men Type: BLOOD SPECIMEN Ordering Facility: [facility] Address: [address] [place] [address] Performed By: #### 2 4321-2 #### [facility] CLIA [id number] [address] [place] [address] [place] Creatinine [Mass/Vol] 0.76 mg/dL Normal 0.58-0.96 [facility] Comment on above: Order Comment: Liza granados Type: BLOOD SPECIMEN Ordering Facility: [facility] Address: [address] [place] [address] Performed By: #### 2 4321-2 #### [facility] CLIA [id number] [address] [place] [address] [place] eGFRcr SerPlBld CKD-EPI 2020 78 mL/min/1.73m??? Normal >=60 [facility] Comment on above: Order Comment: Liza granados Type: BLOOD SPECIMEN Ordering Facility: [facility] Address: [address] [place] [address] Result Comment: Rachael mated Glomerular Filtration Rate [...] GFR. Performed By: #### 2 4321-2 #### [facility] CLIA [id number] [address] [place] [id number] [place] Glucose [Mass/Vol] 100 mg/dL High 74-99 [facility] Comment on above: Order Comment: Liza granados Type: BLOOD SPECIMEN Ordering Facility: [facility] Address: [address] [place] [address] Result Comment: The [place] [employer] (ADA) provides guidance for cutoff [...] Standards of Medical Care in Diabetes 2016, [place] [employer]. Diabetes Care. 2016.39(Suppl 1). Performed By: #### 2 4321-2 #### [facility] CLIA [id number] [address] [place] [address] [place] Potassium [Moles/Vol] 3.8 mmol/L Normal 3.7-5.1 [facility] Comment on above: Order Comment: Speci men Type: BLOOD SPECIMEN Ordering Facility: [facility] Address: [address] [place] [address] Performed By: #### 2 4321-2 #### [facility] CLIA [id number] [address] [place] [address] [place] Sodium [Moles/Vol] 134 mmol/L Low 136-144 [facility] Comment on above: Order Comment: Speci men Type: BLOOD SPECIMEN Ordering Facility: [facility] Address: [address] [place] [address] Performed By: #### 2 4321-2 #### [facility] CLIA [id number] [address] [place] Urea nitrogen [Mass/Vol] 14 mg/dL Normal 7-21 [facility] Comment on above: Order Comment: Speci men Type: BLOOD SPECIMEN Ordering Facility: [facility] Address: [address] [place] [address] Performed By: #### 2 4321-2 #### [facility] CLIA [id number] [address] [place] CBC W Auto Differential pane l (Bld)on 01-19-2025 Basophils (Bld) [#/Vol] 10*3/uL Normal <0.11 [facility] Comment on above: Order Comment: Speci men Type: BLOOD SPECIMEN Ordering Facility: [facility] Address: [address] [place] [address] Performed By: #### 5 7021-8 #### [facility] CLIA [id number] [address] [place] Basophils/100 WBC (Bld) 0.3 % Normal [facility] Comment on above: Order Comment: Speci men Type: BLOOD SPECIMEN Ordering Facility: [facility] Address: [address] [place] [address] Performed By: #### 5 7021-8 #### [facility] CLIA [id number] [address] [place] [address] [place] Differential cell count method Nom (Bld) Auto Normal [facility] Comment on above: Order Comment: Speci men Type: BLOOD SPECIMEN Ordering Facility: [facility] Address: [address] [place] [address] Performed By: #### 5 7021-8 #### [facility] CLIA [id number] [address] [place] [address] [place] Eosinophils (Bld) [#/Vol] 10*3/uL Normal <0.46 [facility] Comment on above: Order Comment: Speci men Type: BLOOD SPECIMEN Ordering Facility: [facility] Address: [address] [place] [address] Performed By: #### 5 7021-8 #### [facility] CLIA [id number] [address] [place] [address] [place] Eosinophils/100 WBC (Bld) 0.3 % Normal [facility] Comment on above: Order Comment: Speci men Type: BLOOD SPECIMEN Ordering Facility: [facility] Address: [address] [place] [address] Performed By: #### 5 7021-8 #### [facility] CLIA [id number] [address] [place] [address] [place] Erythrocyte distribution width (RBC) [Ratio] 13.1 % Normal 11.5-15.0 [facility] Comment on above: Order Comment: Speci men Type: BLOOD SPECIMEN Ordering Facility: [facility] Address: [address] [place] [address] Performed By: #### 5 7021-8 #### [facility] CLIA [id number] [address] [place] [address] [place] Hematocrit (Bld) [Volume fraction] 35.9 % Low 36.0-46.0 [facility] Comment on above: Order Comment: Speci men Type: BLOOD SPECIMEN Ordering Facility: [facility] Address: [address] [place] [address] Performed By: #### 5 7021-8 #### [facility] CLIA [id number] [address] [place] [address] [place] Hemoglobin (Bld) [Mass/Vol] 11.3 g/dL Low 11.5-15.5 [facility] Comment on above: Order Comment: Speci men Type: BLOOD SPECIMEN Ordering Facility: [facility] Address: [address] [place] [address] Performed By: #### 5 7021-8 #### [facility] CLIA [id number] [address] [place] [address] [place] Immature granulocytes (Bld) [#/Vol] 10*3/uL Normal <0.10 [facility] Comment on above: Order Comment: Speci men Type: BLOOD SPECIMEN Ordering Facility: [facility] Address: [address] [place] [address] Performed By: #### 5 7021-8 #### [facility] CLIA [id number] [address] [place] [address] [place] Immature granulocytes/100 WBC (Bld) 0.6 % Normal [facility] Comment on above: Order Comment: Speci men Type: BLOOD SPECIMEN Ordering Facility: [facility] Address: [address] [place] [address] Performed By: #### 5 7021-8 #### [facility] CLIA [id number] [address] [place] [address] [place] Lymphocytes (Bld) [#/Vol] 1.32 10*3/uL Normal 1.00-4.00 [facility] Comment on above: Order Comment: Speci men Type: BLOOD SPECIMEN Ordering Facility: [facility] Address: [address] [place] [address] Performed By: #### 5 7021-8 #### [facility] CLIA [id number] [address] [place], [place] [address] [place] [address] Lymphocytes/100 WBC (Bld) 40.6 % Normal [facility] Comment on above: Order Comment: Speci men Type: BLOOD SPECIMEN Ordering Facility: [facility] Address: [address] [place] [address] Performed By: #### 5 7021-8 #### [facility] CLIA [id number] [address] MCH (RBC) [Entitic mass] 27.8 pg Normal 26.0-34.0 [facility] Comment on above: Order Comment: Speci men Type: BLOOD SPECIMEN Ordering Facility: [facility] Address: [address] [place] [address] Performed By: #### 5 7021-8 #### [facility] CLIA [id number] [address] [place] [address] MCHC (RBC) [Mass/Vol] 31.5 g/dL Normal 30.5-36.0 [facility] Comment on above: Order Comment: Speci men Type: BLOOD SPECIMEN Ordering Facility: [facility] Address: [address] [place] [address] Performed By: #### 5 7021-8 #### [facility] CLIA [id number] [address] [place] MCV (RBC) [Entitic vol] 88.4 fL Normal 80.0-100.0 [facility] Comment on above: Order Comment: Speci men Type: BLOOD SPECIMEN Ordering Facility: [facility] Address: [address] [place] [address] Performed By: #### 5 7021-8 #### [facility] CLIA [id number] [address] [place] [address] [facility] Monocytes (Bld) [#/Vol] 0.42 10*3/uL Normal <0.87 [facility] Comment on above: Order Comment: Speci men Type: BLOOD SPECIMEN Ordering Facility: [facility] Address: [address] [place] [address] Performed By: #### 5 7021-8 #### [facility] CLIA [id number] [address] [place] [address] [place] Monocytes/100 WBC (Bld) 12.9 % Normal A [facility] Comment on above: Order Comment: Speci men Type: BLOOD SPECIMEN Ordering Facility: [facility] Address: [address] [place] [address] Performed By: #### 5 7021-8 #### [facility] CLIA [id number] [address] [place] [address] [place] Neutrophils (Bld) [#/Vol] 1.47 10*3/uL Normal 1.45-7.50 [facility] Comment on above: Order Comment: Speci men Type: BLOOD SPECIMEN Ordering Facility: [facility] Address: [address] [place] [address] Performed By: #### 5 7021-8 #### [facility] CLIA [id number] [address] [place] [address] [place] Neutrophils/100 WBC (Bld) 45.3 % Normal [facility] Comment on above: Order Comment: Speci men Type: BLOOD SPECIMEN Ordering Facility: [facility] Address: [address] [place] [address] Performed By: #### 5 7021-8 #### [facility] CLIA [id number] [address] [place] [address] [place] Nucleated RBC (Bld) [#/Vol] Normal [facility] Comment on above: Order Comment: Speci men Type: BLOOD SPECIMEN Ordering Facility: [facility] Address: [address] [place] [address] Performed By: #### 5 7021-8 #### [facility] CLIA [id number] [address] [place] [address] [place] Nucleated RBC/100 WBC (Bld) [Ratio] Normal [facility] Comment on above: Order Comment: Speci men Type: BLOOD SPECIMEN Ordering Facility: [facility] Address: [facility] [place] [address] Performed By: #### 5 7021-8 #### [facility] CLIA [id number] [address] [place] [address] [place] Platelet mean volume (Bld) [Entitic vol] 8.3 fL Low 9.0-12.7 [facility] Comment on above: Order Comment: Speci men Type: BLOOD SPECIMEN Ordering Facility: [facility] Address: [address] [place] [address] Performed By: #### 5 7021-8 #### [facility] CLIA [id number] [address] [place] [address] [place] Platelets (Bld) [#/Vol] 238 10*3/uL Normal 150-400 [facility] Comment on above: Order Comment: Speci men Type: BLOOD SPECIMEN Ordering Facility: [facility] Address: [address] [place] [address] Performed By: #### 5 7021-8 #### [facility] CLIA [id number] [address] [place] [address] [place] RBC (Bld) [#/Vol] 4.06 10*6/uL Normal 3.90-5.20 [facility] Comment on above: Order Comment: Speci men Type: BLOOD SPECIMEN Ordering Facility: [facility] Address: [address] [place] [address] Performed By: #### 5 7021-8 #### [facility] CLIA [id number] [address] [place] [address] [place] WBC (Bld) [#/Vol] 3.25 10*3/uL Low 3.70-11.00 [facility] Comment on above: Order Comment: Speci men Type: BLOOD SPECIMEN Ordering Facility: [facility] Address: [address] [place] [address] Performed By: #### 5 7021-8 #### [facility] CLIA [id number] [address] [place] [address] [place] [address] BRAIN WO IVCONon 01-20-20 CT BRAIN WO IVCON * * *Final Report* * * DATE OF EXAM: Jan 19 2025 9:04PM [facility] 0504 - CT BRAIN WO IVCON / PROCEDURE REASON: Head trauma, moderate-severe * * * * Physician Interpretation * * * * EXAMINATION: CT BRAIN WO IVCON, CT CERVICAL SPINE WO IVCON CLINICAL HISTORY: Head trauma, moderate-severe - - Head trauma, moderate-severe (accession [id number]), Neck trauma, uncomplicated (NEXUS/CCR neg) (Age 16-64y) (accession [id number]) - TECHNIQUE: CT head and cervical spine without contrast. MQ: CTBCSWO_3 Dose-Length Product (DLP): 706.22 (accession [id number]), 154.36 (accession [id number]) mGy*cm CT Dose Reduction Employed: Automated exposure [...] vertebrae with counting from the craniocervical junction. Yard Supervisor Cotton Gin: PSCB Transcribe Date/Time: Jan 19 2025 9:06P Dictated by : KERRIE WARNER MD This examination was interpreted and the report reviewed and electronically signed by: KERRIE WARNER MD on Jan 19 2025 9:15PM EST [id number] Normal [facility] CT CERVICAL SPINE WO IVCONon 01-19-2025 CT CERVICAL SPINE WO IVCON * * *Final Report* * * DATE OF EXAM: Jan 19 2025 9:04PM [facility] 0505 - CT CERVICAL SPINE WO IVCON / PROCEDURE REASON: Neck trauma, uncomplicated (NEXUS/CCR neg) (Age 16-64y) * * * * Physician Interpretation * * * * EXAMINATION: CT BRAIN WO IVCON, CT CERVICAL SPINE WO IVCON CLINICAL HISTORY: Head trauma, moderate-severe - - Head trauma, moderate-severe (accession [id number]), Neck trauma, uncomplicated (NEXUS/CCR neg) (Age 16-64y) (accession [id number]) - TECHNIQUE: CT head and cervical spine without contrast. MQ: CTBCSWO_3 Dose-Length Product (DLP): 706.22 (accession [id number]), 154.36 (accession [id number]) mGy*cm CT Dose Reduction Employed: Automated exposure [...] vertebrae with counting from the craniocervical junction. Yard Supervisor Cotton Gin: PSCB Transcribe Date/Time: Jan 19 2025 9:06P Dictated by : KERRIE WARNER MD This examination was interpreted and the report reviewed and electronically signed by: KERRIE WARNER MD on Jan 19 2025 9:15PM EST [id number] [facility] ED NOTEon 01-19-2025 ED NOTE HNO ID: [id number] Author: FLORIDALMA SZYMANSKI RN Service: Emergency Medicine Author Type: Registered Nurse Type: ED Notes Filed: 01/19/2025 23:50 Note Text: Oxygen started at 2L/NC per request from Dr. Maurer for sats staying around 90% on RA Normal [facility] ED NOTE HNO ID: [id number] Author: FLORIDALMA SZYMANSKI RN Service: Emergency Medicine Author Type: Registered Nurse Type: ED Notes Filed: 01/19/2025 23:45 Note Text: Patient informed: the name of medication, why we are giving it, possible side effects, what they may expect to feel, and was offered a chance to ask questions, prior to the administration of fentanyl Normal [facility] ED NOTE HNO ID: [id number] Author: FLORIDALMA SZYMANSKI, RN Service: Emergency Medicine Author Type: Registered Nurse Type: ED Notes Filed: 01/19/2025 23:08 Note Text: Called [facility] for transport eta 1 hour Normal [facility] ED NOTE HNO ID: [id number] Author: FLORIDALMA SZYMANSKI, RN Service: Emergency Medicine Author Type: Registered Nurse Type: ED Notes Filed: 01/19/2025 23:04 Note Text: Nursing heavy equipment plumbing supervisor from [facility] called with bed assignment -[facility] 309 -report number [phone] -accepted per Dr. Peters [facility] ED NOTE HNO ID: [id number] Author: FLORIDALMA SZYMANSKI, AUGUSTIN Service: Emergency Medicine Author Type: Registered Nurse Type: ED Notes Filed: 01/19/2025 22:38 Note Text: Drr. Maurer speaking with kimber Martinez operations officer for Dr. Grier from [facility] per pt request Normal [facility] ED NOTE HNO ID: [id number] Author: DWIGHT YOUNGER, AUGUSTIN Service: ? Author Type: Registered Nurse Type: ED Notes Filed: 01/19/2025 19:00 Note Text: Pt fell from standing position while she was at dinner at the senior living. Pt hit her head but denies loc, but does have dizziness. Pt c/o pain in r hand and r hip. Pt is also positive for covid Normal [facility] ED PROV NOTEon 01-19-2025 ED PROV NOTE HNO ID: [id number] Author: RUSSEL MAURER MD Service: Emergency Medicine [...] 01/19/25 1900 01/19/25 1851 01/19/25 1851 01/19/25 18501/19/25 18501/19/25 18501/19/25 1851 -- 142/68 72 36.1 ?C (96.9 ?F) [...] Labs Or (more content not included)... Normal [facility] XR CHEST 1V FRONTALon 2024 XR [...] and spine. IMPRESSION: No acute radiographic abnormality. Yard Supervisor Cotton Gin: EMMY Transcribe Date/Time: Jan 19 2025 10:19P Dictated by : CYN MORGAN DO This examination was interpreted and the report reviewed and electronically signed by: CYN MORGAN DO on Jan 19 2025 10:19PM EST [id number] Normal [facility] XR HAND 3V PA/LAT/OBL RTon 1 [...] PELV+ AP/LAT RT CLINICAL HISTORY: Trauma (accession [id number]), Hip pain, acute, fx suspected, initial exam (accession [id number]) Technique: XR HAND 3V PA/LAT/OBL RT, XR [...] concerning for impacted right femoral neck fracture. Yard Supervisor Cotton Gin: PSCB Transcribe Date/Time: Jan 19 2025 10:16P Dictated by : RASALAN TOMLINSON MD This examination was interpreted and the report reviewed and electronically signed by: ARSALAN TOMLINOSN MD on Jan 19 2025 10:19PM EST [id number] Normal [facility] XR HIP 3V PELV+ AP/LAT RTon [...] PELV+ AP/LAT RT CLINICAL HISTORY: Trauma (accession [id number]), Hip pain, acute, fx suspected, initial exam (accession [id number]) Technique: XR HAND 3V PA/LAT/OBL RT, XR [...] concerning for impacted right femoral neck fracture. Yard Supervisor Cotton Gin: PSCB Transcribe Date/Time: Jan 19 2025 10:16P Dictated by : ARSALAN TOMLINSON MD This examination was interpreted and the report reviewed and electronically signed by: ARSALAN TOMLINSON MD on Jan 19 2025 10:19PM EST [id number] [facility] 12-29-2024 CNPN Telephone (NRMDN) MONISHA COHN ([id number]) 1940 F Date Time Provider Department 12/29/24 [...] Status:Closed by ISABEL JOYA on 12/29/24 Normal [facility] - Chemistry and C hemistry - challengeOrdered By: Alexandria Dejesus on 12-28-2024 Bilirubin Ql (U) Negative [facility] Glucose Ql (U) Negative [facility] Ketones Ql (U) Negative [facility] pH (U) 6 [pH] [facility] Specific gravity (U) [Rel density] 1.015 [facility] Urobilinogen (U) [Mass/Vol] Negative [facility] - Hematology and Cell countsOrdered By: Alexandria Dejesus on 12-28-2024 Hemoglobin Ql (U) Negative [facility] - UrinalysisOrder ed By: Alexandria Dejesus on 12-28-2024 Nitrite Ql (U) Negative [facility] Protein Ql (U) Trace [facility] MR/Beau 12-28-2024 /BOUBACAR [facility] [address], [address] [place] [address] OFFICE VISIT Date of Service: 12/28/24 MR#: [id number] Acct: [id number] Name: MONISHA COHN Rep #: [id number] : 1940 Provider: Dr. Alexandria Lion i, MD Age/Sex: 84/F [place] Status: Signed Intake Vital Signs 09/27/24 08:22 12/28/24 13:11 Height 5 ft 2 in 5 ft 2 in Weight: 161 lb BMI 29.4 BP 115/60 Pulse 83 Intake Visit Reasons: 12m med f/u Chief Complaint: 12 month myrbeiq follow up Supervisor [place] Required: No Accompanied by: ursing manager home healthcare Is patient in pain?: Yes (bone spur [...] artery ( 12/22/21) Atherosclerotic heart disease of [place] coronary artery without angina pectoris ST elevation [...] dry ibis (more content not included)... [facility] No Panel InformationOrdered By: Alexandria Dejesus on 12-28-2024 Urine Leukocytes Negatve [facility] Urine Non-Hemolyzed Blood Negative [facility] Cardiovascular stress test r eportOrdered By: Danielle Vernon on 11-07-2024 Study report [facility] [address] [place] [address] MR#: [id number] Acct: [id number] Name: MONISHA COHN Rep #: [id number] : 1940 84 From: Danielle Vernon [...] be obtained. This note was generated with Studiekringation software. It may contain incorrectwords, spelling, and punctuation that were not noted in checking the note beforesigning. 11/07/241427 Date _ Danielle Vernon MD CC: Dr. Danielle Vernon MD; Tressa Bobby ~ Date Dictated: 11/07/241426 Date Transcribed: 11/07/241426 Yard Supervisor Cotton Gin: EVANGELINA Wiseman [facility] Work Phone: Echocardiogram study reportO rdered By: Danielle Vernon on 11-07-2024 Study report [facility] [address] [place] [address] Echo Complete 11/03/24928 MR#: [id number] Acct: [id number] Name: MONISHA COHN Rep #:[id number] : 1940 84 From: Danielle Vernon MD Attending Dr: Dr. Danielle Vernon MD Status: REG CLI Ordering Dr: Danielle Vernon MD Date: Location: [facility] Sex: F C Admitted: [...] Rosales ~ Date Dictated: 11/03/24928 Date Transcribed: 11/07/241247 Yard Supervisor Cotton Gin: Signed [facility] Work Phone: Stress Reporton 11-07-2024 Stress Report [facility] [address] [place] [address] MR#: [id number] Acct: [id number] Name: MONISHA COHN Rep #: [id number] : 1940 84 From: Danielle Vernon MD [...] be obtained. This note was generated with InLive Interactive software. It may contain incorrect words, spelling, and punctuation that were not noted in checking the note before signing. 11/07/241427 Date Danielle Vernon MD CC: Dr. Danielle Vernon MD; Tressa Rosales Date Dictated: 11/07/241426 Date Transcribed: 11/07/241426 Yard Supervisor Cotton Gin: EVANGELINA Signed [facility] Echo Completeon 11-03-2024 Echo Complete [facility] [address] [place] [address] Echo Complete 11/03/24 0929 MR#: [id number] Acct: [id number] Name: MONISHA COHN Rep #: [id number] : 1940 84 From: Danielle Vernon MD Attending Dr: Dr. Danielle Vernon MD Status: REG CLI Ordering Dr: Danielle Vernon MD Date: 11/03/24 Location: [facility] Sex: F C Admitted: [...] Vernon Referring Physician: Danielle Vernon Performed By: Irieno Walker RCS 11/07/24 1248 Date Danielle Vernon MD CC: Dr. Danielle Vernon MD; Tressa Bobby Date Dictated: 11/03/24928 Date Transcribed: 11/07/24 124 Yard Supervisor Cotton Gin: Signed [facility] Cardiology Visit Reporton Cardiology Visit Report [facility] [address] [place] [address] OFFICE VISIT Date of Service: 09/27/24 MR#: [id number] Acct: [id number] Name: MONISHA COHN Rep #: [id number] : 1940 Provider: Dr. 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 [facility] CNOVon 07-29-2024 CNOV Office Visit (NMMBHT ) MONISHA COHN ([id number]) 1940 F Date Time Provider Department 07/29/24 3:00 PM ARMEN MADISON During your visit today, we recorded the following information about you: Pulse Blood pressure 68/minute 110/65 Armen Madison MD 07/29/2024 3:33 PM Signed [facility] New Patient Visit Note Consultation [...] further r (more content not included)... Normal [facility] Folate SerPl-mCncon 07-30-19 25 Folate [Mass/Vol] 6.2 ng/mL Normal >4.7 [facility] Comment on above: Order Comment: Liza granados Type: BLOOD SPECIMEN Ordering Facility: [facility] Address: [address] [place] [address] Performed By: #### 2 284-8, 2132-9 #### [facility] CLIA [id number] [address] [place] [address] [place] HbA1c (Bld)on 07-29-2024 Average glucose Estimated from glycated hemoglobin (Bld) [Mass/Vol] 100 mg/dL Normal [facility] Comment on above: Order Comment: Liza granados Type: BLOOD SPECIMEN Ordering Facility: [facility] Address: [address] [place] [address] Result Comment: eAG: (Estimated average glucose) is a calculated value from HgbA1c and is dermatology sales representative of the average blood glucose level in the last 2-3 month period. Performed By: #### 5 5454-3 #### [facility] CLIA [id number] [address] [place] [address] [place] HbA1c (Bld) [Mass fraction] 5.1 % Normal 4.3-5.6 [facility] Comment on above: Order Comment: Liza granados Type: BLOOD SPECIMEN Ordering Facility: [facility] Address: [address] [place] [address] Result Comment: Amer ican Diabetes Association guidelines indicate that patients with HgbA1c in the range 5.7-6.4% are at increased risk for development of diabetes, and intervention by lifestyle modification may be beneficial. HgbA1c greater or equal to 6.5% is considered diagnostic of diabetes. Performed By: #### 5 5454-3 #### [facility] CLIA [id number] [address] [place] [address] IMMUNOFIXATION SCREEN, SERUM on 07-29-2024 INTERPRETATION (MPA) Atypical restricted bands are present in the IgG and lambda regions. Consistent with IgG lambda monoclonal gammopathy. Normal [facility] Comment on above: Order Comment: Liza granados Type: BLOOD SPECIMEN Ordering Facility: [facility] Address: [address] [place] [address] Performed By: #### I FESC #### [facility] CLIA [id number] [address] [place] [address] STATES OF [facility] MPA RESULT M protein is present. Abnormal No M p rotein is identified. [facility] Comment on above: Order Comment: Liza granados Type: BLOOD SPECIMEN Ordering Facility: [facility] Address: [address] [place] [address] Performed By: #### I FESC #### [facility] CLIA [id number] [address] [place] [address] OF [facility] STAFF REVIEW (MPA) Reviewed by Beatriz Estes M.D., Ph.D Normal [facility] Comment on above: Order Comment: Liza granados Type: BLOOD SPECIMEN Ordering Facility: [facility] Address: [address] [place] [address] Performed By: #### I FESC #### [facility] CLIA [id number] [address] [place] [address] [place] KAPPA/ZIMMERMAN,FREE,SERon 2024 Immunoglobulin light chains.kappa.free (S) [Mass/Vol] 20.0 mg/L High 3.3-19.4 [facility] Comment on above: Order Comment: Speci roberta Type: BLOOD SPECIMEN Ordering Facility: [facility] Address: [address] [place] [address] Result Comment: Rare ly, increased serum free light chains levels may not be detected or accurately quantified due to prozone phenomenon or in high viscosity samples using this immunoturbidimetric assay. Correlation with other laboratory results and clinical findings is recommended. The [place] Free Light Chain was performed using the Binding Site Optilite immunoturbidimetric method. Result obtained with different assay methods or kits cannot be used interchangeably. Performed By: #### K LFRS #### [facility] CLIA [id number] [address] [place] [address] [place] Immunoglobulin light chains.kappa/Immunoglobu lacey light chains.lambda (S) [Mass ratio] 0.16 Low 0.26-1.65 [facility] Comment on above: Order Comment: Speci roberta Type: BLOOD SPECIMEN Ordering Facility: [facility] Address: [address] [place] [address] Performed By: #### K LFRS #### [facility] CLIA [id number] [address] [place] [address] [place] Immunoglobulin light chains.lambda.free [Mass/Vol] 121.8 mg/L High 5.7-26.3 [facility] Comment on above: Order Comment: Liza granados Type: BLOOD SPECIMEN Ordering Facility: [facility] Address: [address] [place] [address] Result Comment: Rare ly, increased serum free [...] interchangeably. Performed By: #### K LFRS #### [facility] CLIA [id number] [address] [place], [place] [address] [place] Methylmalonate SerPl-sCncon 07-29-2024 Methylmalonate [Moles/Vol] 0.18 umol/L Normal <=0.40 [facility] Comment on above: Order Comment: Liza granados Type: BLOOD SPECIMEN Ordering Facility: [facility] Address: [address] [place] [address] Result Comment: This test was developed, and its performance characteristics determined by the [facility] Department of Pathology and Laboratory Medicine. It has not been cleared or approved by the FDA. The [facility] Department of Pathology and Laboratory Medicine is regulated under CLIA as qualified to perform high-complexity testing. This test is used for clinical purposes. It should not be regarded as investigational or for research. Performed By: #### 1 3964-2 #### [facility] CLIA [id number] [address] [place] [address] [place] VITAMIN B1 (THIAMINE), WHOLE BLOODon 07-29-2024 Thiamine (Bld) [Moles/Vol] 118.7 nmol/L Normal 84.3-213.3 [facility] Comment on above: Order Comment: Liza granados Type: BLOOD SPECIMEN Ordering Facility: [facility] Address: [address] [place] [address] Result Comment: This assay measures the concentration of thiamine diphosphate (TDP), the primary active form of vitamin B1. Approximately 90 percent of vitamin B1 present in whole blood is TDP. Thiamine and thiamine monophosphate, which comprise the remaining 10 percent, are not measured. This test was developed, and its performance characteristics determined by the [facility] Department of Pathology and Laboratory Medicine. It has not been cleared or approved by the FDA. The [facility] Department of Pathology and Laboratory Medicine is regulated under CLIA as qualified to perform high-complexity testing. This test is used for clinical purposes. It should not be regarded as investigational or for research. Performed By: #### B 1WB #### [facility] CLIA [id number] [address] [place] [address] [place] Vit B12 SerPl-mCncon 025 Cobalamin (Vitamin B12) [Mass/Vol] 876 pg/mL Normal 232-1245 [facility] Comment on above: Order Comment: Speci men Type: BLOOD SPECIMEN Ordering Facility: [facility] Address: [address] [place] [address] Performed By: #### 2 284-8, 2132-9 #### [facility] CLIA [id number] [address] [place] [address] CNOVon 06-28-2024 CNOV Office Visit (NRMDN) MONISHA COHN ([id number]) 1940 F Date Time Provider Department 06/28/24 8:00 AM EM FLYNN During your visit today, we recorded the following information about you: Pulse Blood pressure Weight Height 76/minute 112/74 70.5 kg 1.575 m Em Flynn APRN.CNP 06/28/2024 11:22 PM Signed [facility] - FOLLOW UP EVALUATION The patient consented to the use of ambient Fashfix software for draft documentation of the visit consistent with [facility]?s Notice of Privacy Practices. Alexandra Arreguin APRN.ERCO MACHINE OPERATOR [address] [address] Dear Alexandra Arreguin APRN.ERCO MACHINE OPERATOR: I had the pleasure of seeing [...] directives (living will and durable power of admitted attorneys for healthcare): By Email: Send your document(s) to [email or web address] as an attachment in either PDF, TIFF, or JPEG format. By Mail: [facility] Information Management, [employer] Advance Directive Processing [address] [place], [place] [address] By In person at any [facility] location Please note: You can use the address or fax number regardless of which [facility] you utilize, and we will make [...] she find (more content not included)... Normal [facility] Hepatobilliary Img w/Pharm I nton 06-03-2024 Hepatobilliary Img w/Pharm Int [facility] Imaging Services [address] [place], [place] [id number] Hepatobilliary Img w/Pharm Int MR#: [id number] Acct: [id number] Name: MONISHA COHN Rep #: [id number] : 1940 F 84 From: Hong byrne MD PCP: Tressa Rosales Status: REG CLI Study: Hepatobilliary Img w/Pharm Int Date of Exam: 0 06/03/24 Exam# [id number] Ordering Dr: Didi Lujan RESEARCH AND DEVELOPMENT ENGINEER N P-C PROCEDURE: HEPATOBILLIARY IMG W/PHARM INT [...] SCAN AND GALLBLADDER EJECTION FRACTION. Reading Location: [place] [address] CC: Didi Lujan; Tressa Rosales Yard Supervisor Cotton Gin: Signed [facility] Cardiology Visit Reporton Cardiology Visit Report [facility] [address] [place] [address] OFFICE VISIT Date of Service: 03/16/24 MR#: [id number] Acct: [id number] Name: MONISHA COHN Rep #: [id number] : 1940 Provider: Dr. 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 [facility] Large [facility] Yury Jasso MD 10/02/2023 10:01 [...] the patient voiced understanding of these instructions. [facility] XR Shoulder - left 3 Viewson 10-01-2023 IMPRESSION: Degenerative changes with chronic rotator cuff tear. Yard Supervisor Cotton Gin: EMMY Transcribe Date/Time: Oct 01 2023 6:45A Dictated by : SHENA OAKLEY MD This examination was interpreted and the report reviewed and electronically signed by: SHENA OAKLEY MD on Oct 01 2023 6:46AM EST [facility] * * *Final Report* * * [...] rotator cuff tear. No fracture or dislocation. [facility] Provider, [facility] - 10/01/2023 * * *Final Report* [...] Degenerative changes with chronic rotator cuff tear. Yard Supervisor Cotton Gin: EMMY Transcribe Date/Time: Oct 01 2023 6:45A Dictated by : SHENA OAKLEY MD This examination was interpreted and the report reviewed and electronically signed by: SHENA OAKLEY MD on Oct 01 2023 6:46AM EST [facility] XR Shoulder - left 3 ViewsOr dered By: [facility] Provider on 10-01-2023 [facility] XR SHLDR >/=3V AP/KIERA AP/OTH R [...] Degenerative changes with chronic rotator cuff tear. Yard Supervisor Cotton Gin: EMMY Transcribe Date/Time: Oct 01 2023 6:45A Dictated by : SHENA OAKLEY MD This examination was interpreted and the report reviewed and electronically signed by: SHENA OAKLEY MD on Oct 01 2023 6:46AM EST [id number] [facility] XR Shoulder - left 3 Viewson 09-29-2023 Radiology Study observation (narrative) Esme fontana [facility] CRISTOFER DIAG W JOHN PAUL LTon [address] [place] [address] DIAG W JOHN PAUL LT * * *Final Report* * * DATE OF EXAM: Sep 23 2023 9:39AM JOSÉ LUIS 0628 - [facility] DIAG W JOHN PAUL LT / PROCEDURE REASON: R92.2 INCONCLUSIVE MAMMOGRAM * * * * Physician Interpretation * * * * #[id number] - [facility] DIAG W JOHN PAUL LT #[id number] - [facility] BREAST LTD LT UNILATERAL LEFT DIGITAL [...] Comparison is made to exam dated: 08/13/2023 [facility]. The left breast is almost entirely [...] Comparison is made to exam dated: 08/13/2023 [facility]. Ultrasound of was performed. Imaging was [...] Health, Family Medicine, and Medical/Surgical Oncology, the [facility] has carefully reviewed the data and [...] their providers when to stop screening mammograms. Head Of Sales(s): RT Yumiko(R)(M), [facility]; RT Nicole(R), [facility] OVERALL STUDY BIRADS: 2 Benign finding Yard Supervisor Cotton Gin: Gi Transcribe Date/Time: Sep 23 2023 9:21A Dictated by : AJAY UBLLOCK MD This examination was interpreted and the report reviewed and electronically signed by: AJAY BULLOCK MD on Sep 23 2023 10:55AM EST [id number] Normal [facility] US BREAST LTD LTon 09-22 [facility] [employer] BREAST LTD LT * * *Final Report* * * DATE OF EXAM: Sep 23 2023 10:32AM JASPREET 0593 - [facility] [employer] BREAST LTD LT / PROCEDURE REASON: Abnormal mammogram * * * * Physician Interpretation * * * * #[id number] - [facility] DIAG W JOHN PAUL LT #[id number] - [facility] [employer] BREAST LTD LT UNILATERAL LEFT DIGITAL DIAGNOSTIC [...] made to exam dated: 08/13/2023 mammogram - [facility]. The left breast is almost [...] made to exam dated: 08/13/2023 mammogram - [facility]. Ultrasound of was performed. Imaging [...] mammogram screening schedule is recommended. Ajay BENITEZ, [facility]/gi:09/23/2023 10:55:35 Multiple national specialty organizations have released breast cancer screening guidelines for women at average risk for developing breast cancer - guidelines that are based on both evidence and opinion, yet differ on when to start and how often to screen for breast cancer. With representation from Breast Imaging, Internal Medicine, Women's Health, Family Medicine, and Medical/Surgical Oncology, the [facility] has carefully reviewed the data and [...] their providers when to stop screening mammograms. Head Of Sales(s): Rafia Wagner RT(R)(M), [facility]; Virginie Rios RT(R), [facility] OVERALL STUDY BIRADS: 2 Benign finding Yard Supervisor Cotton Gin: Gi Transcribe Date/Time: Sep 23 2023 9:21A Dictated by : AJAY BULLOCK MD This examination was interpreted and the report reviewed and electronically signed by: AJAY BULLOCK MD on Sep 23 2023 10:55AM EST [id number] Normal [facility] US Breast - left limitedon 0 09-23-2023 * * *Final Report* * * DATE OF EXAM: Sep 23 2023 10:32AM JASPREET 0593 - [facility] US BREAST LTD LT / PROCEDURE REASON: Abnormal mammogram * * * * Physician Interpretation * * * * #[id number] - [facility] DIAG W JOHN PAUL LT #[id number] - [facility] US BREAST LTD LT UNILATERAL LEFT [...] made to exam dated: 08/13/2023 mammogram - [facility]. The left breast is almost [...] other findings are seen in the breast. [facility] Provider, [facility] - 09/23/2023 * * *Final Report* * * DATE OF EXAM: Sep 23 2023 10:32AM JASPREET 0593 - [facility] [employer] LTD LT / PROCEDURE REASON: Abnormal mammogram * * * * Physician Interpretation * * * * #[id number] - [facility] DIAG W JOHN PAUL LT #[id number] - [facility] [employer] BREAST LTD LT UNILATERAL LEFT DIGITAL DIAGNOSTIC [...] Comparison is made to exam dated: 08/13/2023 [facility]. The left breast is almost entirely [...] Comparison is made to exam dated: 08/13/2023 [facility]. Ultrasound of was performed. Imaging was [...] screening schedule is recommended. Ajay Bullock M.D. [facility], [facility]/gi:09/23/2023 10:55:35 Multiple national specialty organizations have released breast cancer screening guidelines for women at average risk for developing breast cancer - guidelines that are based on both evidence and opinion, yet differ on when to start and how often to screen for breast cancer. With representation from Breast Imaging, Internal Medicine, Women's Health, Family Medicine, and Medical/Surgical Oncology, the [facility] has carefully reviewed the data and [...] their providers when to stop screening mammograms. Head Of Sales(s): RT Yumiko(R)(M), [facility]; RT Nicole(R), [facility] OVERALL STUDY BIRADS: 2 Benign finding Yard Supervisor Cotton Gin: Gi Transcribe Date/Time: Sep 23 2023 9:21A Dictated by : AJAY BULLOCK MD This examination was interpreted and the report reviewed and electronically signed by: AJAY BULLOCK MD on Sep 23 2023 10:55AM EST [facility] Radiology Study observation (narrative) [facility] US Breast - left limitedOrde red By: Ccf Provider on 09-23-2023 [facility] BD DXA - AXIAL SKELETONon BD [...] years, Gender: Female SCANNER INFORMATION: DXA Model: [employer] [id number] Date Scanned: 08/13/2023 2:25 PM CLINICAL HISTORY: [...] had a previous bone density in the [facility] or the previous bone density was performed on a different DXA machine (new, updated model or different location) within the [facility]. VERTEBRAL FRACTURE ASSESSMENT Not performed. TRABECULAR BONE [...] FOR MORE INFORMATION ABOUT DIAGNOSIS AND TREATMENT: [facility] Center for Osteoporosis and Metabolic Bone Disease:? www.ccf.org/arthritis/ osteo National Osteoporosis Foundation:? www.nof.org International Society of Clinical Densitometry www.iscd.org Yard Supervisor Cotton Gin: EMMY Transcribe Date/Time: Aug 14 2023 8:30A Dictated by : SHENA OAKLEY MD This examination was interpreted and the report reviewed and electronically signed by: SHENA OAKLEY MD on Aug 14 2023 8:31AM EST [id number] -3.1 Normal [facility] SCREENINGon 08-13-2023 [facility] SCREENING * * *Final Report* * * DATE OF EXAM: Aug 13 2023 2:10PM JOSÉ LUIS 0581 - [facility] SCREENING / PROCEDURE REASON: Z12.31 SCREENING MAMMOGRAM * * * * Physician Interpretation * * * * #[id number] - [facility] SCREENING BILATERAL DIGITAL SCREENING MAMMOGRAM WITH [...] possible ultrasound are recommended. Jayleen spears/gi:08/14/2023 11:00:52 Head Of Sales(s): RT Maribel(R)(M), [facility] letter sent: Additional Imaging Needed Mammogram BI-RADS: 0 Incomplete: needs additional imaging evaluation If this report indicates you need additional imaging, and it has NOT yet been performed, please call , to schedule. We sincerely thank you for choosing the [facility] for your breast imaging needs. Multiple [...] Health, Family Medicine, and Medical/Surgical Oncology, the [facility] has carefully reviewed the data and [...] their providers when to stop screening mammograms. Yard Supervisor Cotton Gin: Gi Transcribe Date/Time: Aug 13 2023 1:56P Dictated by : JAYLEEN CASTELLANOS MD This examination was interpreted and the report reviewed and electronically signed by: JAYLEEN CASTELLANOS MD on Aug 14 2023 11:00AM EST [id number] [facility] MR Cervical spine WO contras ton 07-29-2023 [facility] [facility] Absolute lymphocyte countOrd ered By: Law Gold on 05-01-2023 Lymphocytes Auto (Unsp spec) [#/Vol] 1.22 10*3/uL 0.83-4.51 [facility] Activated partial thrombopla stin time (aPTT) in platelet poor plasma by coagulation aOrdered By: Law Gold on 05-01-2023 aPTT Coag (PPP) [Time] 23.0 s 24.1-36.2 [facility] Automated lymphocyte count a s percentage of total leukocytesOrdered By: Law Gold on 05-01-2023 Lymphocytes/100 WBC Auto (Unsp spec) 19.9 % 19-41 [facility] Basophil percentageOrdered B y: Law Gold on 05-01-2023 Basophils/100 WBC (Bld) 0.8 % 0-1 [facility] Chloride [Moles/Vol] 106 mmol/L 98-107 [facility] Eosinophils/100 WBC (Bld) 5.2 % 0-5 [facility] Glucose [Mass/Vol] 87 mg/dL 74-106 [facility] Hemoglobin (Bld) [Mass/Vol] 10.7 g/dL 12.0-15.0 [facility] Monocytes/100 WBC (Bld) 11.6 % 0-10 [facility] Neutrophils (Bld) [#/Vol] 3.8 10*3/uL 2.0-7.7 [facility] Neutrophils/100 WBC (Bld) 62.2 % 47-70 [facility] Potassium [Moles/Vol] 4.4 mmol/L 3.5-5.1 [facility] Sodium [Moles/Vol] 139 mmol/L 136-145 [facility] WBC (Bld) [#/Vol] 6.1 10*3/uL 4.4-11.0 [facility] Determination of erythrocyte mean corpuscular volume (MCV)Ordered By: Law Gold on 05-01-2023 MCV (RBC) [Entitic vol] 90.3 fL 81-99 [facility] Erythrocyte distribution wid th ratioOrdered By: Law Gold on 05-01-2023 Erythrocyte distribution width (RBC) [Ratio] 13.2 % 11.6-14.6 [facility] Erythrocyte distribution wid th standard deviationOrdered By: Law Gold on 05-01-2023 Erythrocyte distribution width (RBC) [Entitic vol] 43.1 fL 35.1-43.9 [facility] Hematocrit Auto (Bld) [Volum e fraction]Ordered By: Law Gold on 05-01-2023 Hematocrit (Bld) [Volume fraction] 34.3 % 37-47 [facility] Immature granulocytes/100 WB C Auto (Bld)Ordered By: Law Gold on 05-01-2023 Immature granulocytes/100 WBC (Bld) 0.300 % 0.0-0.9 [facility] Comment on above: IG% - Immature Granu locytes (promyelocytes, myelocytes and metamyelocytes) > 1% indicates that a LEFT SHIFT is Present. International normalized rat io (INR) calculationOrdered By: Law Gold on 05-01-2023 INR Coag (PPP) [Relative time] 1.3 {INR} [facility] Laboratory - Chemistry and C hemistry - challengeOrdered By: Law Gold on 05-01-2023 CO2 [Moles/Vol] 28.0 mmol/L 21.0-32.0 [facility] Urea nitrogen/Creatinine [Mass ratio] 18.9 mg/mg 10-20 [facility] Laboratory - CoagulationOrde red By: Law Gold on 05-01-2023 PT Coag (PPP) [Time] 16.1 s 11.7-14.9 [facility] Laboratory - Hematology and Cell countsOrdered By: Law Gold on 05-01-2023 MCH (RBC) [Entitic mass] 28.2 pg 27.0-32.0 [facility] MCHC (RBC) [Mass/Vol] 31.2 g/dL 32-36 [facility] Nucleated RBC/100 WBC (Bld) [Ratio] 0 % 0-5 [facility] Platelets (Bld) [#/Vol] 311 10*3/uL 150-450 [facility] No Panel InformationOrdered By: Law Gold on 05-01-2023 Estimated Creatinine Clearance Calc 51.35 ml/min [facility] Estimated GFR (MDRD) Amer 89 mL/min >60 [facility] Comment on above: GFR Calc Estimated GFR (MDRD) Non-Af Amer 74 mL/min >60 [facility] Comment on above: Non- GFR Calc Platelet mean volume [place] (Bld) [Entitic vol]Ordered By: Law Gold on 05-01-2023 Platelet mean volume (Bld) [Entitic vol] 8.4 fL 6.2-12.0 [facility] RBC Auto (Bld) [#/Vol]Ordere d By: Law Gold on 05-01-2023 RBC (Bld) [#/Vol] 3.80 10*6/uL 4.2-5.4 [facility] Serum or plasma calcium taylor urement (mass/volume)Ordered By: Law Gold on 05-01-2023 Calcium [Mass/Vol] 8.9 mg/dL 8.5-10.1 [facility] Serum or plasma creatinine m easurement (mass/volume)Ordered By: Law Gold on 05-01-2023 Creatinine [Mass/Vol] 0.79 mg/dL 0.55-1.02 [facility] Comment on above: The validity of the calculated GFR & GFRAA in patients over 70 years has not been determined. Clinical correlation is essential. Serum or plasma urea nitroge n measurement (mass/volume)Ordered By: Law Gold on 05-01-2023 Urea nitrogen [Mass/Vol] 15 mg/dL 7-18 [facility] Thin prep Papanicolaou smear with manual screeningOrdered By: Law Gold on 05-01-2023 Thin prep Papanicolaou smear with manual screening 5 5-15 [facility] Absolute lymphocyte countOrd ered By: Darline Lundy on 02-06-2023 Lymphocytes Auto (Unsp spec) [#/Vol] 2.15 10*3/uL 0.83-4.51 [facility] Basophil percentageOrdered B y: Darline Lundy on 02-06-2023 Basophils/100 WBC (Bld) 0.4 % 0-1 [facility] Chloride [Moles/Vol] 108 mmol/L 98-107 [facility] Eosinophils/100 WBC (Bld) 2.6 % 0-5 [facility] Glucose [Mass/Vol] 90 mg/dL 74-106 [facility] Neutrophils (Bld) [#/Vol] 3.9 10*3/uL 2.0-7.7 [facility] Neutrophils/100 WBC (Bld) 55.6 % 47-70 [facility] Potassium [Moles/Vol] 4.2 mmol/L 3.5-5.1 [facility] Sodium [Moles/Vol] 140 mmol/L 136-145 [facility] WBC (Bld) [#/Vol] 7.0 10*3/uL 4.4-11.0 [facility] Blood erythrocytes count (nu mber/volume)Ordered By: Darline Lundy on 02-06-2023 RBC (Bld) [#/Vol] 2.47 10*6/uL 4.2-5.4 [facility] Blood hemoglobin measurement (mass/volume)Ordered By: Darline Lundy on 02-06-2023 Hemoglobin (Bld) [Mass/Vol] 7.8 g/dL 12.0-15.0 [facility] Blood lymphocytes/100 leukoc ytesOrdered By: Darline Lundy on 02-06-2023 Lymphocytes/100 WBC (Bld) 30.5 % 19-41 [facility] Blood monocytes/100 leukocyt esOrdered By: Darline Lundy on 02-06-2023 Monocytes/100 WBC (Bld) 10.2 % 0-10 [facility] Blood platelet mean volumeOr dered By: Darline Lundy on 02-06-2023 Platelet mean volume (Bld) [Entitic vol] 8.9 fL 6.2-12.0 [facility] COVID-19 virus antigen assay Ordered By: Darline Lundy on 02-06-2023 SARS-CoV-2 (COVID-19) Ag IA.rapid Ql (Resp) [facility] SARS-CoV-2 (COVID-19) Ag IA.rapid Ql (Resp) [facility] Determination of erythrocyte mean corpuscular volume (MCV)Ordered By: Darline Lundy on 02-06-2023 MCV (RBC) [Entitic vol] 90.7 fL 81-99 [facility] Hematocrit Auto (Bld) [Volum e fraction]Ordered By: Darline Lundy on 02-06-2023 Hematocrit (Bld) [Volume fraction] 22.4 % 37-47 [facility] Laboratory - Chemistry and C hemistry - challengeOrdered By: Darline Lundy on 02-06-2023 CO2 [Moles/Vol] 29.0 mmol/L 21.0-32.0 [facility] Urea nitrogen/Creatinine [Mass ratio] 25.2 mg/mg 10-20 [facility] Laboratory - Hematology and Cell countsOrdered By: Darline Lundy on 02-06-2023 Erythrocyte distribution width (RBC) [Entitic vol] 45.7 fL 35.1-43.9 [facility] Erythrocyte distribution width (RBC) [Ratio] 14.2 % 11.6-14.6 [facility] Immature granulocytes/100 WBC (Bld) 0.700 % 0.0-0.9 [facility] Comment on above: IG% - Immature Granu locytes (promyelocytes, myelocytes and metamyelocytes) > 1% indicates that a LEFT SHIFT is Present. MCH (RBC) [Entitic mass] 28.7 pg 27.0-32.0 [facility] Nucleated RBC/100 WBC (Bld) [Ratio] 0 % 0-5 [facility] MCHC Auto (RBC) [Mass/Vol]Or dered By: Darline Lundy on 02-06-2023 MCHC (RBC) [Mass/Vol] 31.7 g/dL 32-36 [facility] Comment on above: Delta: 33.5 on [id number] No Panel InformationOrdered By: Darline Lundy on 02-06-2023 Estimated Creatinine Clearance Calc 34.90 ml/min [facility] Estimated GFR (MDRD) Amer 115 mL/min >60 [facility] Comment on above: GFR Calc Estimated GFR (MDRD) Non-Af Amer 95 mL/min >60 [facility] Comment on above: Non- GFR Calc Platelets bldOrdered By: Maribeth Lundy on 02-06-2023 Platelets (Bld) [#/Vol] 227 10*3/uL 150-450 [facility] Serum or plasma calcium taylor urement (mass/volume)Ordered By: Darline Lundy on 02-06-2023 Calcium [Mass/Vol] 7.9 mg/dL 8.5-10.1 [facility] Serum or plasma creatinine m easurement (mass/volume)Ordered By: Darline Lundy on 02-06-2023 Creatinine [Mass/Vol] 0.64 mg/dL 0.55-1.02 [facility] Comment on above: The validity of the calculated GFR & GFRAA in patients over 70 years has not been determined. Clinical correlation is essential. Serum or plasma urea nitroge n measurement (mass/volume)Ordered By: Darline Lundy on 02-06-2023 Urea nitrogen [Mass/Vol] 16 mg/dL 7-18 [facility] Thin prep Papanicolaou smear with manual screeningOrdered By: Darline Lundy on 02-06-2023 Thin prep Papanicolaou smear with manual screening 3 5-15 [facility] Blood manual differential co mment interpretation (narrative result)Ordered By: Darline Lundy on 02-03-2023 Manual differential comment Enrique (Bld) [Interp] SCANNED [facility] Hypochromatic red blood cell detectionOrdered By: Darline Lundy on 02-03-2023 Hypochromia Ql (Bld) 1+ [facility] Review by pathologistOrdered By: Darline Lundy on 02-03-2023 Pathologist review Enrique (Unsp spec) [Interp] Reviewed [facility] Comment on above: Previous reported re sult: Francine keating Edited by: RGOOD on 02/03/23:1313Severe Normocytic anemia.Clinical correlation necessary.Lucas Smith M.D. 02/03/23 AMENDED REPORT 02/03/23 131 PATH REV previously reported as: Francine keating Basophil percentageOrdered B y: Jasmin Steele on 02-02-2023 Bilirubin [Mass/Vol] 1.10 mg/dL 0.20-1.00 [facility] Comment on above: For patients on eltr ombopag therapy, use of Dimension [place] TBIL is not recommended. Protein [Mass/Vol] 5.6 g/dL 6.4-8.2 [facility] Laboratory - Chemistry and C hemistry - challengeOrdered By: Jasmin Steele on 02-02-2023 ALP [Catalytic activity/Vol] 51 U/L 45-117 [facility] ALT [Catalytic activity/Vol] 7 U/L 13-56 [facility] Globulin (S) [Mass/Vol] 2.8 g/dL 2.2-4.2 [facility] No Panel InformationOrdered By: Davian Grier on 02-02-2023 Vitamin D 25-Hydroxy 34.0 ng/mL [facility] Comment on above: Vitamin D 25(OH) Sta tus Range Deficiency <20 ng/mL (50nmol/L) Insufficiency 20 - 30 ng/mL (50 - 75 nmol/L) Sufficiency 30 - 100 ng/mL (75 - 250 nmol/L) Toxicity >100 ng/mL (>250 nmol/L) Serum or plasma albumin taylor urement (mass/volume)Ordered By: Jasmin Steele on 02-02-2023 Albumin [Mass/Vol] 2.8 g/dL 3.2-5.0 [facility] Serum or plasma albumin/glob ulin mass ratioOrdered By: Jasmin Steele on 02-02-2023 Albumin/Globulin [Mass ratio] 1.0 {ratio} 0.9-2.4 [facility] Thin prep Papanicolaou smear with manual screeningOrdered By: Jasmin Steele on 02-02-2023 Thin prep Papanicolaou smear with manual screening 16 U/L 15-37 [facility] Absolute lymphocyte countOrd ered By: Niko Lorenz on 02-01-2023 Lymphocytes Auto (Unsp spec) [#/Vol] 1.35 10*3/uL 0.83-4.51 [facility] Basophil percentageOrdered B y: Niko Lorenz on 02-01-2023 Basophils/100 WBC (Bld) 1.0 % 0-1 [facility] Chloride [Moles/Vol] 107 mmol/L 98-107 [facility] Eosinophils/100 WBC (Bld) 1.7 % 0-5 [facility] Glucose [Mass/Vol] 98 mg/dL 74-106 [facility] Neutrophils (Bld) [#/Vol] 2.9 10*3/uL 2.0-7.7 [facility] Neutrophils/100 WBC (Bld) 60.2 % 47-70 [facility] Potassium [Moles/Vol] 4.2 mmol/L 3.5-5.1 [facility] Sodium [Moles/Vol] 141 mmol/L 136-145 [facility] WBC (Bld) [#/Vol] 4.8 10*3/uL 4.4-11.0 [facility] Blood erythrocytes count (nu mber/volume)Ordered By: Niko Lorenz on 02-01-2023 RBC (Bld) [#/Vol] 3.93 10*6/uL 4.2-5.4 [facility] Blood hemoglobin measurement (mass/volume)Ordered By: Niko Lorenz on 02-01-2023 Hemoglobin (Bld) [Mass/Vol] 10.8 g/dL 12.0-15.0 [facility] Blood lymphocytes/100 leukoc ytesOrdered By: Niko Lorenz on 02-01-2023 Lymphocytes/100 WBC (Bld) 28.0 % 19-41 [facility] Blood monocytes/100 leukocyt esOrdered By: Niko Lorenz on 02-01-2023 Monocytes/100 WBC (Bld) 8.9 % 0-10 [facility] Blood platelet mean volumeOr dered By: Niko Lorenz on 02-01-2023 Platelet mean volume (Bld) [Entitic vol] 8.7 fL 6.2-12.0 [facility] Determination of erythrocyte mean corpuscular volume (MCV)Ordered By: Niko Lorenz on 02-01-2023 MCV (RBC) [Entitic vol] 89.6 fL 81-99 [facility] Glucose Glucometer (BldC) [M ass/Vol]Ordered By: Darline Lundy on 02-01-2023 Glucose [Mass/Vol] 99 mg/dL 74-106 [facility] Comment on above: MANAGEMENT OF PATIEN T CARE PER NURSING PROTOCOL Hematocrit Auto (Bld) [Volum e fraction]Ordered By: Niko Lorenz on 02-01-2023 Hematocrit (Bld) [Volume fraction] 35.2 % 37-47 [facility] INR in Blood by Coagulation assayOrdered By: Niko Lorenz on 02-01-2023 INR Coag (Bld) [Relative time] 1.2 {INR} [facility] Laboratory - Chemistry and C hemistry - challengeOrdered By: Niko Lorenz on 02-01-2023 CO2 [Moles/Vol] 30.0 mmol/L 21.0-32.0 [facility] Urea nitrogen/Creatinine [Mass ratio] 18.8 mg/mg 10-20 [facility] Laboratory - Chemistry and C hemistry - challengeOrdered By: Jasmin Steele on 02-01-2023 Natriuretic peptide B (Bld) [Mass/Vol] 145.2 pg/mL 0-100 [facility] - CoagulationOrde red By: Niko Lorenz on 02-01-2023 PT Coag (PPP) [Time] 14.8 s 11.7-14.9 [facility] Laboratory - Hematology and Cell countsOrdered By: Niko Lorenz on 02-01-2023 Erythrocyte distribution width (RBC) [Entitic vol] 41.8 fL 35.1-43.9 [facility] Erythrocyte distribution width (RBC) [Ratio] 12.6 % 11.6-14.6 [facility] Immature granulocytes/100 WBC (Bld) 0.200 % 0.0-0.9 [facility] Comment on above: IG% - Immature Granu locytes (promyelocytes, myelocytes and metamyelocytes) > 1% indicates that a LEFT SHIFT is Present. MCH (RBC) [Entitic mass] 27.5 pg 27.0-32.0 [facility] Nucleated RBC/100 WBC (Bld) [Ratio] 0 % 0-5 [facility] MCHC Auto (RBC) [Mass/Vol]Or dered By: Niko Lorenz on 02-01-2023 MCHC (RBC) [Mass/Vol] 30.7 g/dL 32-36 [facility] No Panel InformationOrdered By: Niko Lorenz on 02-01-2023 Estimated Creatinine Clearance Calc 41.05 ml/min [facility] Estimated GFR (MDRD) Amer 83 mL/min >60 [facility] Comment on above: GFR Calc Estimated GFR (MDRD) Non-Af Amer 68 mL/min >60 [facility] Comment on above: Non- GFR Calc Platelets bldOrdered By: Alina Lorenz on 02-01-2023 Platelets (Bld) [#/Vol] 255 10*3/uL 150-450 [facility] Serum or plasma calcium taylor urement (mass/volume)Ordered By: Niko Lorenz on 02-01-2023 Calcium [Mass/Vol] 8.6 mg/dL 8.5-10.1 [facility] Serum or plasma creatinine m easurement (mass/volume)Ordered By: Niko Lorenz on 02-01-2023 Creatinine [Mass/Vol] 0.85 mg/dL 0.55-1.02 [facility] Comment on above: The validity of the calculated GFR & GFRAA in patients over 70 years has not been determined. Clinical correlation is essential. Serum or plasma urea nitroge n measurement (mass/volume)Ordered By: Niko Lorenz on 02-01-2023 Urea nitrogen [Mass/Vol] 16 mg/dL 7-18 [facility] Thin prep Papanicolaou smear with manual screeningOrdered By: Niko Lorenz on 02-01-2023 Thin prep Papanicolaou smear with manual screening 4 5-15 [facility] Basophil percentageOrdered B y: Danielle Saulo on 01-05-2023 Chloride [Moles/Vol] 107 mmol/L 98-107 [facility] Glucose [Mass/Vol] 95 mg/dL 74-106 [facility] Potassium [Moles/Vol] 4.3 mmol/L 3.5-5.1 [facility] Sodium [Moles/Vol] 139 mmol/L 136-145 [facility] Laboratory - Chemistry and C hemistry - challengeOrdered By: Danielle Vernon on 01-05-2023 CO2 [Moles/Vol] 28.0 mmol/L 21.0-32.0 [facility] Urea nitrogen/Creatinine [Mass ratio] 17.8 mg/mg 10-20 [facility] No Panel InformationOrdered By: Danielle Vernon on 01-05-2023 Estimated GFR (MDRD) Amer 68 mL/min >60 [facility] Comment on above: GFR Calc Estimated GFR (MDRD) Non-Af Amer 56 mL/min >60 [facility] Comment on above: Non- GFR Calc Serum or plasma calcium taylor urement (mass/volume)Ordered By: Danielle Vernon on 01-05-2023 Calcium [Mass/Vol] 8.8 mg/dL 8.5-10.1 [facility] Serum or plasma creatinine m easurement (mass/volume)Ordered By: Danielle Vernon on 01-05-2023 Creatinine [Mass/Vol] 1.01 mg/dL 0.55-1.02 [facility] Comment on above: The validity of the calculated GFR & GFRAA in patients over 70 years has not been determined. Clinical correlation is essential. Serum or plasma urea nitroge n measurement (mass/volume)Ordered By: Danielle Vernon on 01-05-2023 Urea nitrogen [Mass/Vol] 18 mg/dL 7-18 [facility] Thin prep Papanicolaou smear with manual screeningOrdered By: Danielle Vernon on 01-05-2023 Thin prep Papanicolaou smear with manual screening 4 5-15 [facility] Absolute lymphocyte counton 2022 Lymphocytes Auto (Unsp spec) [#/Vol] 1.71 10*3/uL 0.83-4.51 [facility] Work Phone: Basophil percentageon 2021 Basophils/100 WBC (Bld) 0.8 % 0-1 [facility] Work Phone: Bilirubin [Mass/Vol] 0.60 mg/dL 0.20-1.00 [facility] Work Phone: Comment on above: For patients on eltr ombopag therapy, use of Dimension [place] TBIL is not recommended. Chloride [Moles/Vol] 106 mmol/L 98-107 [facility] Work Phone: Cholesterol [Mass/Vol] 171 mg/dL <200 [facility] Work Phone: Comment on above: <200 mg/dL Desirable 200-240 mg/dL Borderline >240 mg/dL High Risk Eosinophils/100 WBC (Bld) 1.8 % 0-5 [facility] Work Phone: Glucose [Mass/Vol] 93 mg/dL 74-106 [facility] Work Phone: Neutrophils (Bld) [#/Vol] 2.5 10*3/uL 2.0-7.7 [facility] Work Phone: Neutrophils/100 WBC (Bld) 51.0 % 47-70 [facility] Work Phone: Potassium [Moles/Vol] 4.6 mmol/L 3.5-5.1 [facility] Work Phone: Protein [Mass/Vol] 7.3 g/dL 6.4-8.2 [facility] Work Phone: Sodium [Moles/Vol] 139 mmol/L 136-145 [facility] Work Phone: Triglyceride [Mass/Vol] 76 mg/dL <199 [facility] Work Phone: Comment on above: The drugs N-Acetylcy steine and Metamizole may falsely depress this assay.Serum Triglycerides Reference Interval Normal <150 mg/dL Borderline high 150 - 199 mg/dL High 200 - 499 mg/dL Very High > or = 500 mg/dL WBC (Bld) [#/Vol] 5.0 10*3/uL 4.4-11.0 [facility] Work Phone: Blood erythrocytes count (nu mber/volume)on 2022 RBC (Bld) [#/Vol] 4.37 10*6/uL 4.2-5.4 [facility] Work Phone: Blood hemoglobin measurement (mass/volume)on 2022 Hemoglobin (Bld) [Mass/Vol] 11.9 g/dL 12.0-15.0 [facility] Work Phone: [phone] Blood lymphocytes/100 leukoc yteson 2022 Lymphocytes/100 WBC (Bld) 34.5 % 19-41 [facility] Work Phone: [phone] Blood monocytes/100 leukocyt eson 2022 Monocytes/100 WBC (Bld) 11.7 % 0-10 [facility] Work Phone: Blood platelet mean volumeon 2022 Platelet mean volume (Bld) [Entitic vol] 9.1 fL 6.2-12.0 [facility] Work Phone: Determination of erythrocyte mean corpuscular volume (MCV)on 2022 MCV (RBC) [Entitic vol] 88.3 fL 81-99 [facility] Work Phone: [phone] Hematocrit Auto (Bld) [Volum e fraction]on 2022 Hematocrit (Bld) [Volume fraction] 38.6 % 37-47 [facility] Work Phone: Laboratory - Chemistry and C hemistry - challengeon 2022 ALP [Catalytic activity/Vol] 71 U/L 45-117 [facility] Work Phone: [phone] ALT [Catalytic activity/Vol] 16 U/L 13-56 [facility] Work Phone: [phone] CO2 [Moles/Vol] 28.0 mmol/L 21.0-32.0 [facility] Work Phone: Globulin (S) [Mass/Vol] 3.6 g/dL 2.2-4.2 [facility] Work Phone: Urea nitrogen/Creatinine [Mass ratio] 22.8 mg/mg 10-20 [facility] Work Phone: Bilirubin Ql (U) Small (1+) [facility] Work Phone: [phone] Glucose Ql (U) Negative [facility] Work Phone: [phone] Ketones Ql (U) Small (15+) [facility] Work Phone: [phone] pH (U) 6.5 [pH] [facility] Work Phone: [phone] Specific gravity (U) [Rel density] 1.025 [facility] Work Phone: [phone] Urobilinogen (U) [Mass/Vol] 1 mg/dL [facility] Work Phone: [phone] Laboratory - Hematology and Cell countson 2022 Erythrocyte distribution width (RBC) [Entitic vol] 41.6 fL 35.1-43.9 [facility] Work Phone: [phone] Erythrocyte distribution width (RBC) [Ratio] 12.7 % 11.6-14.6 [facility] Work Phone: [phone] Immature granulocytes/100 WBC (Bld) 0.200 % 0.0-0.9 [facility] Work Phone: Comment on above: IG% - Immature Granu locytes (promyelocytes, myelocytes and metamyelocytes) > 1% indicates that a LEFT SHIFT is Present. MCH (RBC) [Entitic mass] 27.2 pg 27.0-32.0 [facility] Work Phone: Nucleated RBC/100 WBC (Bld) [Ratio] 0 % 0-5 [facility] Work Phone: Hemoglobin Ql (U) Negative [facility] Work Phone: Laboratory - Specimen inform ationon 2022 Clarity (U) Clear [facility] Work Phone: Color (U) STRAW [facility] Work Phone: Laboratory - Urinalysison Nitrite Ql (U) Negative [facility] Work Phone: Protein Ql (U) Trace [facility] Work Phone: MCHC Auto (RBC) [Mass/Vol]on 2022 MCHC (RBC) [Mass/Vol] 30.8 g/dL 32-36 [facility] Work Phone: No Panel Informationon 03-26 Estimated GFR (MDRD) Amer 68 mL/min >60 [facility] Work Phone: Comment on above: GFR Calc Estimated GFR (MDRD) Non-Af Amer 56 mL/min >60 [facility] Work Phone: [phone] Comment on above: Non- GFR Calc Thyroid Stimulating Hormone (TSH) 2.51 uIU/mL 0.358-3.74 [facility] Work Phone: Urine Leukocytes Negatve [facility] Work Phone: Urine Non-Hemolyzed Blood [facility] Work Phone: [phone] Platelets bldon 2022 Platelets (Bld) [#/Vol] 311 10*3/uL 150-450 [facility] Work Phone: Serum or plasma albumin taylor urement (mass/volume)on 2022 Albumin [Mass/Vol] 3.7 g/dL 3.2-5.0 [facility] Work Phone: Serum or plasma albumin/glob ulin mass ratioon 2022 Albumin/Globulin [Mass ratio] 1.0 {ratio} 0.9-2.4 [facility] Work Phone: [phone] Serum or plasma calcium taylor urement (mass/volume)on 2022 Calcium [Mass/Vol] 9.0 mg/dL 8.5-10.1 [facility] Work Phone: Serum or plasma cholesterol in HDL measurement (mass/volume)on 2022 Cholesterol in HDL [Mass/Vol] 100 mg/dL >40 [facility] Work Phone: Comment on above: The drugs N-Acetylcy steine and Metamizole may falsely depress this assay. Reference Range HDL <40 mg/dL Low HDL Cholesterol HDL >or= 60 mg/dL High HDL Cholesterol Serum or plasma cholesterol in VLDL measurement (mass/volume)on 2022 Cholesterol in VLDL [Mass/Vol] 15 mg/dL 5-40 [facility] Work Phone: [phone] Serum or plasma creatinine m easurement (mass/volume)on 2022 Creatinine [Mass/Vol] 1.01 mg/dL 0.55-1.02 [facility] Work Phone: Comment on above: The validity of the calculated GFR & GFRAA in patients over 70 years has not been determined. Clinical correlation is essential. Serum or plasma low density lipoprotein (LDL) cholesterol measurement (mass/volume)on 2022 Cholesterol in LDL [Mass/Vol] 56 mg/dL 0-130 [facility] Work Phone: Serum or plasma urea nitroge n measurement (mass/volume)on 2022 Urea nitrogen [Mass/Vol] 23 mg/dL 7-18 [facility] Work Phone: Serum or plasma uric acid me asurement (mass/volume)on 2022 Urate [Mass/Vol] 3.8 mg/dL 2.6-6.0 [facility] Work Phone: Comment on above: The drugs N-Acetylcy steine and Metamizole may falsely depress this assay. Thin prep Papanicolaou smear with manual screeningon 2022 Thin prep Papanicolaou smear with manual screening 27 U/L 15-37 [facility] Work Phone: Thin prep Papanicolaou smear with manual screening 5 5-15 [facility] Work Phone: Vital Signs Date Time Vital Sign Value Performing Clinician Faci lity 01-25-2025 10:36-0400 Body temperature 98.4 [degF] [facility] 01-25-2025 10:36-0400 Diastolic blood pressure 52 mm[Hg] [facility] 01-25-2025 10:36-0400 Heart rate 83 /min [facility] 01-25-2025 10:36-0400 Respiratory rate 16 /min [facility] 01-25-2025 10:36-0400 SaO2% (BldA) [Mass fraction] 98 % [facility] 01-25-2025 10:36-0400 Systolic blood pressure 113 mm[Hg] [facility] 01-25-2025 06:00-0400 Body mass index (BMI) [Ratio] 30.7 kg/m2 [facility] 01-25-2025 06:00-0400 Body weight 75.7 kg [facility] 01-22-2025 08:05-0400 Inhaled oxygen flow rate 2 L/min [facility] 01-20-2025 11:58-0400 Body height 157 cm [facility] 12-28-2024 13:11-0400 Body height 157.48 cm [facility] 12-28-2024 13:11-0400 Body mass index (BMI) [Ratio] 29.4 kg/m2 [facility] 12-28-2024 13:11-0400 Body weight 73.02 kg [facility] 12-28-2024 13:11-0400 Diastolic blood pressure 60 mm[Hg] [facility] 12-28-2024 13:11-0400 Heart rate 83 /min Tressa Rosales [facility] 12-28-2024 13:11-0400 Systolic blood pressure 115 mm[Hg] Tressa Rosales [facility] 09-27-2024 08:22-0400 Body height 157.48 cm Didi Tai RESEARCH AND DEVELOPMENT ENGINEER-C Work Phone: [facility] 09-27-2024 08:22-0400 Body mass index (BMI) [Ratio] 29.4 kg/m2 Didi Lujan RESEARCH AND DEVELOPMENT ENGINEER-C Work Phone: [facility] 09-27-2024 08:22-0400 Body weight 73.02 kg Didi Tai RESEARCH AND DEVELOPMENT ENGINEER-C Work Phone: [facility] 09-27-2024 08:22-0400 Diastolic blood pressure 72 mm[Hg] Didi Lujan RESEARCH AND DEVELOPMENT ENGINEER-C Work Phone: [facility] 09-27-2024 08:22-0400 Heart rate 72 /min Didi Lujan RESEARCH AND DEVELOPMENT ENGINEER-C Work Phone: [facility] 09-27-2024 08:22-0400 Respiratory rate 16 /min Didi Tai RESEARCH AND DEVELOPMENT ENGINEER-C Work Phone: [facility] 09-27-2024 08:22-0400 Systolic blood pressure 125 mm[Hg] Didi Lujan RESEARCH AND DEVELOPMENT ENGINEER-C Work Phone: [facility] 07-29-2024 14:17-0400 Diastolic blood pressure 65 mm[Hg] Armen Madison MD Work Phone: [facility] 07-29-2024 14:17-0400 Heart rate 68 /min Armen Madison MD Work Phone: [facility] 07-29-2024 14:17-0400 Systolic blood pressure 110 mm[Hg] Armen Madison MD Work Phone: [facility] 06-28-2024 07:42-0400 Body height 157.5 cm Em Sheldon Work Phone: [facility] 06-28-2024 07:42-0400 Body mass index (BMI) [Ratio] 28.42 kg/m2 Em Flynn APRN.ERCO MACHINE OPERATOR Work Phone: [facility] 06-28-2024 07:42-0400 Body weight 70.49 kg Em Flynn APRN.CN P Work Phone: [facility] Comment on above: Per pt. Did not get weighed today 06-28-2024 07:42-0400 Diastolic blood pressure 74 mm[Hg] Em Flynn APRN.ERCO MACHINE OPERATOR Work Phone: [facility] 06-28-2024 07:42-0400 Heart rate 76 /min Em Flynn APRN.CN P Work Phone: [facility] 06-28-2024 07:42-0400 SaO2% (BldA) [Mass fraction] 99 % Em Flynn APRN.ERCO MACHINE OPERATOR Work Phone: [facility] 06-28-2024 07:42-0400 Systolic blood pressure 112 mm[Hg] Em Flynn APRN.ERCO MACHINE OPERATOR Work Phone: [facility] 03-16-2024 08:37-0500 Body height 157.48 cm Alexandra Arreguin RESEARCH AND DEVELOPMENT ENGINEER-C Work Phone: [facility] 03-16-2024 08:37-0500 Body mass index (BMI) [Ratio] 28.7 kg/m2 Alexandra Arreguin RESEARCH AND DEVELOPMENT ENGINEER-C Work Phone: [facility] 03-16-2024 08:37-0500 Body weight 71.21 kg Alexandra Arreguin RESEARCH AND DEVELOPMENT ENGINEER-C Work Phone: [facility] 03-16-2024 08:37-0500 Diastolic blood pressure 62 mm[Hg] Alexandra Arreguin RESEARCH AND DEVELOPMENT ENGINEER-C Work Phone: [facility] 03-16-2024 08:37-0500 Heart rate 59 /min Alexandra Arreguin RESEARCH AND DEVELOPMENT ENGINEER-C Work Phone: [facility] 03-16-2024 08:37-0500 Respiratory rate 18 /min Alexandra Arreguin RESEARCH AND DEVELOPMENT ENGINEER-C Work Phone: [facility] 03-16-2024 08:37-0500 Systolic blood pressure 97 mm[Hg] Alexandra Rodríguez RESEARCH AND DEVELOPMENT ENGINEER-C Work Phone: [facility] 12-31-2023 09:11-0400 Body height 157.5 cm Em Flynn APRN.CN P Work Phone: [facility] 12-31-2023 09:11-0400 SaO2% (BldA) [Mass fraction] 99 % Em Flynn APRN.ERCO MACHINE OPERATOR Work Phone: [facility] 09-29-2023 08:59-0400 Body height 157.5 cm Em Flynn APRN.CN P Work Phone: [facility] 09-29-2023 08:59-0400 Body mass index (BMI) [Ratio] 29.81 kg/m2 Em Flynn APRN.ERCO MACHINE OPERATOR Work Phone: [facility] 09-29-2023 08:59-0400 Body weight 73.94 kg Em Flynn APRN.CN P Work Phone: [facility] Comment on above: Per pt. Did not get weighed 09-29-2023 08:59-0400 Diastolic blood pressure 69 mm[Hg] Em Flynn APRN.ERCO MACHINE OPERATOR Work Phone: [facility] 09-29-2023 08:59-0400 Heart rate 58 /min Em Flynn APRN.CN P Work Phone: [facility] 09-29-2023 08:59-0400 SaO2% (BldA) [Mass fraction] 98 % Em Flynn APRN.ERCO MACHINE OPERATOR Work Phone: [facility] 09-29-2023 08:59-0400 Systolic blood pressure 106 mm[Hg] Em Flynn APRN.ERCO MACHINE OPERATOR Work Phone: [facility] 08-27-2023 13:39-0400 Body height 157.5 cm Stephan Sheehan PA-C Work Phone: [facility] 08-27-2023 13:39-0400 Body mass index (BMI) [Ratio] 30.12 kg/m2 Stephan Sheehan PA-C Work Phone: [facility] 08-27-2023 13:39-0400 Body weight 74.7 kg Stephan Sheehan PA-C Work Phone: [facility] 08-27-2023 13:39-0400 Diastolic blood pressure 57 mm[Hg] Stephan Sheehan PA-C Work Phone: [facility] 08-27-2023 13:39-0400 Heart rate 60 /min Stephan Sheehan PA-C Work Phone: [facility] 08-27-2023 13:39-0400 Respiratory rate 18 /min Stephan Sheehan PA-C Work Phone: [facility] 08-27-2023 13:39-0400 SaO2% (BldA) [Mass fraction] 100 % Stephan Sheehan PA-C Work Phone: [facility] 08-27-2023 13:39-0400 Systolic blood pressure 130 mm[Hg] Stephan Sheehan PA-C Work Phone: [facility] 07-06-2023 08:13-0400 Body weight 73.94 kg Em Flynn APRN.CN P Work Phone: [facility] 07-06-2023 08:13-0400 Diastolic blood pressure 82 mm[Hg] Em Flynn APRN.ERCO MACHINE OPERATOR Work Phone: [facility] 07-06-2023 08:13-0400 Heart rate 72 /min Em Flynn APRN.CN P Work Phone: [facility] 07-06-2023 08:13-0400 SaO2% (BldA) [Mass fraction] 99 % Em Flynn APRN.ERCO MACHINE OPERATOR Work Phone: [facility] 07-06-2023 08:13-0400 Systolic blood pressure 128 mm[Hg] Em Flynn APRN.ERCO MACHINE OPERATOR Work Phone: [facility] 05-01-2023 18:05-0500 Diastolic blood pressure 69 mm[Hg] RESEARCH AND DEVELOPMENT ENGINEER-C Alexandra Arreguin RESEARCH AND DEVELOPMENT ENGINEER Work Phone: [facility] 05-01-2023 18:05-0500 Heart rate 67 /min RESEARCH AND DEVELOPMENT ENGINEER-C Alexandra Arreguin RESEARCH AND DEVELOPMENT ENGINEER Work Phone: [facility] 05-01-2023 18:05-0500 Respiratory rate 16 /min RESEARCH AND DEVELOPMENT ENGINEER-C Alexandra Arreguin RESEARCH AND DEVELOPMENT ENGINEER Work Phone: [facility] 05-01-2023 18:05-0500 SaO2% (BldA) [Mass fraction] 98 % RESEARCH AND DEVELOPMENT ENGINEER-C Alexandra Arreguin RESEARCH AND DEVELOPMENT ENGINEER Work Phone: [facility] 05-01-2023 18:05-0500 Systolic blood pressure 120 mm[Hg] RESEARCH AND DEVELOPMENT ENGINEER-C Alexandra Arreguin RESEARCH AND DEVELOPMENT ENGINEER Work Phone: [facility] 05-01-2023 13:26-0500 Body height 157.48 cm RESEARCH AND DEVELOPMENT ENGINEER-C Alexandra Arreguin RESEARCH AND DEVELOPMENT ENGINEER Work Phone: [facility] 05-01-2023 13:26-0500 Body mass index (BMI) [Ratio] 30.2 kg/m2 RESEARCH AND DEVELOPMENT ENGINEER-C Alexandra Arreguin RESEARCH AND DEVELOPMENT ENGINEER Work Phone: [facility] 05-01-2023 13:26-0500 Body temperature 98.4 [degF] RESEARCH AND DEVELOPMENT ENGINEER-C Alexandra Arreguin RESEARCH AND DEVELOPMENT ENGINEER Work Phone: [facility] 05-01-2023 13:26-0500 Body weight 74.84 kg RESEARCH AND DEVELOPMENT ENGINEER-C Alexandra Arreguin RESEARCH AND DEVELOPMENT ENGINEER Work Phone: [facility] 02-06-2023 13:59-0400 Body temperature 98.6 [degF] RESEARCH AND DEVELOPMENT ENGINEER-C Alexandra Arreguin RESEARCH AND DEVELOPMENT ENGINEER Work Phone: [facility] 02-06-2023 13:59-0400 Diastolic blood pressure 52 mm[Hg] RESEARCH AND DEVELOPMENT ENGINEER-C Alexandra Arreguin RESEARCH AND DEVELOPMENT ENGINEER Work Phone: [facility] 02-06-2023 13:59-0400 Heart rate 73 /min RESEARCH AND DEVELOPMENT ENGINEER-C Alexandra Arreguin RESEARCH AND DEVELOPMENT ENGINEER Work Phone: 1(562)520-574216 [place] [address] 02-06-2023 13:59-0400 Respiratory rate 16 /min RESEARCH AND DEVELOPMENT ENGINEER-C Alexandra Arreguin RESEARCH AND DEVELOPMENT ENGINEER Work Phone: 9(173)450-740866 [address] 02-06-2023 13:59-0400 SaO2% (BldA) [Mass fraction] 100 % RESEARCH AND DEVELOPMENT ENGINEER-C Alexandra Arreguin RESEARCH AND DEVELOPMENT ENGINEER Work Phone: 0(670)586-046316 [place] [address] 02-06-2023 13:59-0400 Systolic blood pressure 92 mm[Hg] RESEARCH AND DEVELOPMENT ENGINEER-C Alexandra Arreguin RESEARCH AND DEVELOPMENT ENGINEER Work Phone: 1(972)802-715466 [address] 02-06-2023 05:46-0400 Body mass index (BMI) [Ratio] 31.1 kg/m2 RESEARCH AND DEVELOPMENT ENGINEER-C Alexandra Arreguin RESEARCH AND DEVELOPMENT ENGINEER Work Phone: 7(295)555-903466 [address] 02-06-2023 05:46-0400 Body weight 76.6 kg RESEARCH AND DEVELOPMENT ENGINEER-C Alexandra Arreguin RESEARCH AND DEVELOPMENT ENGINEER Work Phone: 5(214)582-834079 [place] [address] 02-02-2023 11:48-0400 Body height 157.48 cm RESEARCH AND DEVELOPMENT ENGINEER-C Alexandra Arreguin RESEARCH AND DEVELOPMENT ENGINEER Work Phone: 9(207)559-522479 [place] [address] 02-01-2023 13:44-0400 Body height 157.48 cm RESEARCH AND DEVELOPMENT ENGINEER-C Alexandra Arreguin RESEARCH AND DEVELOPMENT ENGINEER Work Phone: 2(170)352-561466 [address] 02-01-2023 13:44-0400 Body mass index (BMI) [Ratio] 31.1 kg/m2 RESEARCH AND DEVELOPMENT ENGINEER-C Alexandra Arreguin RESEARCH AND DEVELOPMENT ENGINEER Work Phone: 2(676)756-513516 [place] [address] 02-01-2023 13:44-0400 Body temperature 98.4 [degF] RESEARCH AND DEVELOPMENT ENGINEER-C Alexandra Arreguin RESEARCH AND DEVELOPMENT ENGINEER Work Phone: 4(336)326-706416 [place] [address] 02-01-2023 13:44-0400 Body weight 77.1 kg RESEARCH AND DEVELOPMENT ENGINEER-C Alexandra Arreguin RESEARCH AND DEVELOPMENT ENGINEER Work Phone: 3(718)376-324716 [place] [address] 02-01-2023 13:44-0400 Diastolic blood pressure 79 mm[Hg] RESEARCH AND DEVELOPMENT ENGINEER-C Alexandra Arreguin RESEARCH AND DEVELOPMENT ENGINEER Work Phone: [facility] 02-01-2023 13:44-0400 Heart rate 77 /min RESEARCH AND DEVELOPMENT ENGINEER-C Alexandra Arreguin RESEARCH AND DEVELOPMENT ENGINEER Work Phone: [facility] 02-01-2023 13:44-0400 Respiratory rate 20 /min RESEARCH AND DEVELOPMENT ENGINEER-C Alexandra Arreguin RESEARCH AND DEVELOPMENT ENGINEER Work Phone: [facility] 02-01-2023 13:44-0400 SaO2% (BldA) [Mass fraction] 99 % RESEARCH AND DEVELOPMENT ENGINEER-C Alexandra Arreguin RESEARCH AND DEVELOPMENT ENGINEER Work Phone: [facility] 02-01-2023 13:44-0400 Systolic blood pressure 165 mm[Hg] RESEARCH AND DEVELOPMENT ENGINEER-C Alexandra Arreguin RESEARCH AND DEVELOPMENT ENGINEER Work Phone: [facility] 01-20-2023 14:48-0400 Body height 157.5 cm Em Flynn APRN.CN P Work Phone: [facility] 01-20-2023 14:48-0400 Body weight 70.76 kg Em Flynn APRN.CN P Work Phone: [facility] 01-20-2023 14:48-0400 SaO2% (BldA) [Mass fraction] 100 % Em Flynn APRN.ERCO MACHINE OPERATOR Work Phone: [facility] 12-29-2022 13:39-0400 Body mass index (BMI) [Ratio] 28 kg/m2 RESEARCH AND DEVELOPMENT ENGINEER-C Alexandra Arreguin RESEARCH AND DEVELOPMENT ENGINEER Work Phone: [facility] 12-29-2022 13:39-0400 Body weight 69.39 kg RESEARCH AND DEVELOPMENT ENGINEER-C Alexandra Arreguin RESEARCH AND DEVELOPMENT ENGINEER Work Phone: [facility] 12-29-2022 13:39-0400 Diastolic blood pressure 78 mm[Hg] RESEARCH AND DEVELOPMENT ENGINEER-C Alexandra Arreguin RESEARCH AND DEVELOPMENT ENGINEER Work Phone: [facility] 12-29-2022 13:39-0400 Heart rate 60 /min RESEARCH AND DEVELOPMENT ENGINEER-C Alexandra Arreguin RESEARCH AND DEVELOPMENT ENGINEER Work Phone: [facility] 12-29-2022 13:39-0400 Respiratory rate 16 /min RESEARCH AND DEVELOPMENT ENGINEER-C Alexandra Arreguin RESEARCH AND DEVELOPMENT ENGINEER Work Phone: [facility] 12-29-2022 13:39-0400 Systolic blood pressure 152 mm[Hg] RESEARCH AND DEVELOPMENT ENGINEER-Mariajose Arreguin RESEARCH AND DEVELOPMENT ENGINEER Work Phone: [facility] 10-09-2022 12:48-0400 Body height 157.5 cm Linden Flynn MD Work Phone: [facility] 10-09-2022 12:48-0400 Body weight 68.63 kg Linden Flynn MD Work Phone: [facility] 10-09-2022 12:48-0400 SaO2% (BldA) [Mass fraction] 99 % Linden Flynn MD Work Phone: [facility] 2022 14:59-0500 Body height 157.48 cm [facility] Work Phone: 2022 14:59-0500 Body mass index (BMI) [Ratio] 25.2 kg/m2 [facility] Work Phone: 2022 14:59-0500 Body temperature 97.7 [degF] [facility] Work Phone: 2022 14:59-0500 Body weight 62.59 kg [facility] Work Phone: 2022 14:59-0500 Diastolic blood pressure 70 mm[Hg] [facility] Work Phone: 2022 14:59-0500 Heart rate 138 /min [facility] Work Phone: 2022 14:59-0500 Respiratory rate 18 /min [facility] Work Phone: 2022 14:59-0500 SaO2% (BldA) [Mass fraction] 100 % [facility] Work Phone: 2022 14:59-0500 Systolic blood pressure 130 mm[Hg] [facility] Work Phone: 02-24-2022 16:15-0500 Body mass index (BMI) [Ratio] 25.6 kg/m2 [facility] Work Phone: 02-24-2022 16:15-0500 Body temperature 97.5 [degF] [facility] Work Phone: 02-24-2022 16:15-0500 Body weight 63.5 kg [facility] Work Phone: 02-24-2022 16:15-0500 Diastolic blood pressure 60 mm[Hg] [facility] Work Phone: 02-24-2022 16:15-0500 Heart rate 85 /min [facility] Work Phone: 02-24-2022 16:15-0500 Respiratory rate 18 /min [facility] Work Phone: 02-24-2022 16:15-0500 SaO2% (BldA) [Mass fraction] 100 % [facility] Work Phone: 02-24-2022 16:15-0500 Systolic blood pressure 122 mm[Hg] [facility] Work Phone: Encounters Encounter Date Encounter Type Care Provider Facility Start: 02-15-2025 End: 02-15-[facility] Start: 01-25-2025 Non-patient / Non-visit Dr. Estella Kelly MD -[facility] Work Phone: Start: 01-24-2025 Non-patient / Non-visit Dr. Estella Kelly MD -[facility] Work Phone: Start: 01-23-2025 Non-patient / Non-visit Dr. Estella Kelly MD -[facility] Work Phone: Start: 01-22-2025 Non-patient / Non-visit Dr. Estella Kelly MD -[facility] Work Phone: Start: 01-21-2025 Non-patient / Non-visit Dr. Estella Kelly MD -[facility] Work Phone: Start: 01-20-2025 Non-patient / Non-visit Dr. Danielle anderson MD -[facility] Work Phone: Start: 01-20-2025 Non-patient / Non-visit Dr. Zeus Martel DO -[facility] Work Phone: Start: 01-20-2025 ambulatory Davian Kelly Fac ility:[facility] Start: 01-20-2025 End: 01-25-2025 Evaluation and management of inpatient Dr. Davian Kelly MD -[facility] Work Phone: Start: 01-19-2025 End: 01-20-2025 Emergency department patient visit ALEXANDRA Cueva ARREGUIN Facility:[facility] Start: 12-28-2024 End: 12-28-[address] Alexandria Dejesus MD -[facility] Work Phone: Start: 12-28-2024 End: 12-28-2024 ambulatory Tressa HALL -[facility] Start: 11-07-2024 ambulatory Danielle Vernon Facility:[facility] Start: 11-07-2024 Non-patient / Non-visit Dr. Danielle anderson MD -[facility] Start: 11-03-2024 ambulatory Danielle Vernon Facility:[facility] Start: 11-03-2024 Non-patient / Non-visit Dr. Danielle anderson MD -[facility] Start: 11-03-2024 End: 11-03-2024 ambulatory Tressa HALL -[facility] Start: 11-03-2024 End: 11-03-[address] Danielle Vernon MD -[facility] Work Phone: Start: 11-03-2024 End: 11-03-2024 ambulatory Danielle Vernon Facility:[facility] Start: 09-27-2024 End: 09-27-[address] Danielle Vernon MD -[facility] Work Phone: Start: 09-27-2024 End: 09-27-2024 ambulatory Didi Lujan NP-C Work Phone: [facility] Work Phone: Start: 07-29-2024 End: 07-29-2024 ambulatory ALEXANDRA ARREGUIN Facility:[facility] Start: 07-29-2024 End: 07-29-2024 Office outpatient new 30 minutes Armen Madison MD Work Phone: [facility] Comment on above: Numbness and tinglin g of both feet Start: 07-29-2024 End: 07-29-2024 ambulatory ALEXANDRA Anay ARREGUIN Facility:[facility] Start: 06-28-2024 End: 06-28-2024 ambulatory ALEXANDRA Anay ARREGUIN Facility:[facility] Start: 06-28-2024 End: 06-28-2024 Patient encounter procedure Em Flynn APRN.CNP Work Phone: Neurology Comment on above: Dysphagia, unspecifi ed type (Primary Dx); 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 Danielle Vernon MD -[facility] Work Phone: Start: 03-16-2024 End: 03-16-2024 ambulatory Danielle Vernon [facility] Start: 12-31-2023 End: 12-31-2023 Patient encounter procedure Em Flynn APRN.ERCO MACHINE OPERATOR Work Phone: Neurology Comment on above: Dysphagia, unspecifi ed type (Primary Dx); Parkinson's disease without dyskinesia or fluctuating manifestations (HCC); Orthostatic hypotension Start: 11-20-2023 Documentation procedure Mammog dae Coordinator [facility] Start: 11-20-2023 Letter encounter Mammography Coordinator [facility] Start: 11-20-2023 End: 11-20-2023 Subsequent hospital visit by physician Screening Ultrasound Main Work Phone: Mammography Start: 10-21-2023 Telephone encounter Stephan juan PA-C Work Phone: [facility] Comment on above: Lube Man - O ther Start: 10-16-2023 Telephone encounter Yury Jasso MD Work Phone: Orthopaedics Comment on above: Patient Update; Radha ent Question; Orders Start: 10-02-2023 End: 10-02-2023 Patient encounter procedure Yury Jasso MD Work Phone: Orthopedics Comment on above: Acute pain of left s mo[place]ul[place] Start: 09-29-2023 End: 09-29-2023 Patient encounter procedure Em Flynn APRN.ERCO MACHINE OPERATOR Work Phone: Neurology Comment on above: Parkinson's disease without dyskinesia or fluctuating manifestations (HCC) (Primary Dx); Orthostatic hypotension; Hallucinations; Dysphagia, unspecified type Start: 09-29-2023 ambulatory UNKNOWN PROVIDER Facili ty:[facility] Start: 09-29-2023 End: 09-29-2023 Subsequent hospital visit by physician [facility] Work Phone: Radiology Comment on above: Chronic left shoulde r pain [M25.512, G89.29] Start: 09-23-2023 ambulatory DIDI LUJAN Facilit y:[facility] Start: 09-23-2023 End: 09-23-2023 Subsequent hospital visit by physician Screen/Diagnostic Mammo [facility] Work Phone: Mammography Comment on above: Inconclusive mammogr am [R92.2] Start: 09-14-2023 Orders Only Yury Jasso MD Work Phone: Orthopedics Comment on above: Chronic left shoulde r pain (Primary Dx) Start: 09-02-2023 Telephone encounter Stephan juan PA-C Work Phone: [facility] Start: 08-27-2023 End: 08-27-2023 Patient encounter procedure Stephan Sheehan PA-C Work Phone: [facility] Comment on above: Acute pain of left s houlder (Primary Dx); Protrusion of cervical intervertebral disc; Pain in left elbow Start: 08-14-2023 Documentation procedure Mammog dae Coordinator [facility] Start: 08-14-2023 Letter encounter Mammography Coordinator [facility] Start: 08-13-2023 ambulatory DIDI LUJAN Facilit y:[facility] Start: 08-13-2023 End: 08-13-2023 Subsequent hospital visit by physician Screen/Diagnostic Mammo [facility] Work Phone: Mammography Comment on above: Encounter for screen ing mammogram for malignant neoplasm of breast [Z12.31] Asymptomatic [place] state [Z78.0] Start: 08-03-2023 Telephone encounter Em villarreal APRN.ERCO MACHINE OPERATOR Work Phone: Neurology Comment on above: Results Start: 07-29-2023 End: 07-29-2023 Subsequent hospital visit by physician [facility] ([facility].5t[facility] Start: 07-06-2023 End: 07-06-2023 Patient encounter procedure Em Flynn APRN.ERCO MACHINE OPERATOR Work Phone: Neurology Comment on above: Parkinson's disease without dyskinesia or fluctuating manifestations (HCC) (Primary Dx); Orthostatic hypotension; Dysphagia, unspecified type; Left arm pain; Numbness and tingling in left arm Start: 05-01-2023 End: 05-01-2023 Emergency department patient visit RESEARCH AND DEVELOPMENT ENGINEER-C Alexandra Arreguin RESEARCH AND DEVELOPMENT ENGINEER Work Phone: [facility] Work Phone: Start: 02-06-2023 Non-patient / Non-visit RESEARCH AND DEVELOPMENT ENGINEER-C D ora Arreguin RESEARCH AND DEVELOPMENT ENGINEER Work Phone: [facility] Work Phone: Start: 02-05-2023 Non-patient / Non-visit RESEARCH AND DEVELOPMENT ENGINEER-C D ora Arreguin RESEARCH AND DEVELOPMENT ENGINEER Work Phone: [facility] Work Phone: Start: 02-04-2023 Non-patient / Non-visit RESEARCH AND DEVELOPMENT ENGINEER-C D ora Arreguin RESEARCH AND DEVELOPMENT ENGINEER Work Phone: [facility] Work Phone: Start: 02-03-2023 Non-patient / Non-visit RESEARCH AND DEVELOPMENT ENGINEER-C D ora Arreguin RESEARCH AND DEVELOPMENT ENGINEER Work Phone: [facility] Work Phone: Start: 02-02-2023 Non-patient / Non-visit RESEARCH AND DEVELOPMENT ENGINEER-C D ora Arreguin RESEARCH AND DEVELOPMENT ENGINEER Work Phone: [facility] Work Phone: Start: 02-01-2023 End: 02-06-2023 Evaluation and management of inpatient RESEARCH AND DEVELOPMENT ENGINEER-C Alexandra Arreguin RESEARCH AND DEVELOPMENT ENGINEER [facility] Work Phone: Start: 01-20-2023 End: 01-20-2023 Patient encounter procedure Em Flynn APRN.ERCO MACHINE OPERATOR Work Phone: Neurology Comment on above: Parkinson's disease without dyskinesia or fluctuating manifestations (Primary Dx); Hallucinations; Orthostatic hypotension; Insomnia, unspecified type Start: 01-05-2023 End: 01-05-2023 Patient encounter procedure RESEARCH AND DEVELOPMENT ENGINEER-C Alexandra Arreguin RESEARCH AND DEVELOPMENT ENGINEER Work Phone: [facility] Work Phone: Start: 12-29-2022 End: 12-29-2022 Patient encounter procedure RESEARCH AND DEVELOPMENT ENGINEER-C Alexandra Arreguin NP Work Phone: [facility] Work Phone: Start: 10-09-2022 End: 10-09-2022 Office outpatient new 45 minutes Linden Flynn MD Work Phone: Neurology Comment on above: Parkinson's disease (HCC) (Primary Dx); Argyria of skin, accidental or unintentional, sequela; Depression, unspecified depression type Start: 2022 End: 2022 ambulatory [facility] Work Phone: Start: 2022 End: 2022 Patient encounter procedure [facility], Specimen Procedures Date Procedure Procedure Detail Performing Clinician Start: 01-25-2025 Viral antigen assay Clara jenny Bobby OLS Start: 01-24-2025 Estimated creatinine clearance Tressa Bobby OLS Start: 01-23-2025 Total iron binding c apacity measurement Tressa Bobby OLS Start: 01-20-2025 Plain X-ray of hip Shob Bobby OLS Start: 01-20-2025 Fluoroscopic guidance S [facility] Bobby OLS Start: 01-20-2025 Plain X-ray of hip Shob Bobby OLS Start: 01-20-2025 Prosthetic uncemente d hemiarthroplasty of hip [facility] Bobby OLS Start: 01-20-2025 Urnls dip stick/tabl et reagent auto microscopy Tressajenny Rosales OLS Start: 01-20-2025 Serum inorganic phos phate measurement Tressajenny Rosales OLS Start: 11-03-2024 Cardiovascular stres s test using pharmacologic stress agent Tressa Rosales OLS Start: 06-03-2024 Radionuclide study of abdomen Alexandra Arreguin NP-C Work Phone: Start: 10-02-2023 Arthrocentesis aspir &/inj major jt/bursa w/o us Yury Jasso MD Work Phone: Start: 09-29-2023 Radex shoulder compl ete minimum 2 views Claudia Manuel PA-C Work Phone: Start: 09-23-2023 Us breast uni real t jason with image limited [facility] Provider Start: 07-29-2023 Mri spinal canal cer vical w/o contrast matrl Em Flynn CLERICAL CLERKJorgitoERCO MACHINE OPERATOR Work Phone: Start: 05-01-2023 CT cervical spine wi thout contrast RESEARCH AND DEVELOPMENT ENGINEER-C Alexandra Arreguin RESEARCH AND DEVELOPMENT ENGINEER Work Phone: Start: 05-01-2023 CT of head without contrast RESEARCH AND DEVELOPMENT ENGINEER-C Alexandra Arreguin RESEARCH AND DEVELOPMENT ENGINEER Work Phone: Start: 02-06-2023 Viral antigen assay RESEARCH AND DEVELOPMENT ENGINEER- C Alexandra Arreguin RESEARCH AND DEVELOPMENT ENGINEER Work Phone: Start: 02-02-2023 Plain X-ray of hip RESEARCH AND DEVELOPMENT ENGINEER-C Alexandra Arreguin RESEARCH AND DEVELOPMENT ENGINEER Work Phone: Start: 02-02-2023 Open reduction of fr acture of femur with internal fixation RESEARCH AND DEVELOPMENT ENGINEER-C Alexandra Arreguin RESEARCH AND DEVELOPMENT ENGINEER Work Phone: Start: 02-02-2023 Fluoroscopic guidance N P-C Alexandra Arreguin RESEARCH AND DEVELOPMENT ENGINEER Work Phone: Start: 02-01-2023 Plain x-ray of elbow RESEARCH AND DEVELOPMENT ENGINEER -C Alexandra Arreguin RESEARCH AND DEVELOPMENT ENGINEER Work Phone: Start: 02-01-2023 CT of head without contrast RESEARCH AND DEVELOPMENT ENGINEER-C Alexandra Arreguin RESEARCH AND DEVELOPMENT ENGINEER Work Phone: Start: 02-01-2023 Plain chest X-ray RESEARCH AND DEVELOPMENT ENGINEER-C Alexandra Arreguin RESEARCH AND DEVELOPMENT ENGINEER Work Phone: Start: 02-01-2023 Plain X-ray of femur RESEARCH AND DEVELOPMENT ENGINEER -C Alexandra Arreguin RESEARCH AND DEVELOPMENT ENGINEER Work Phone: Plan of Treatment Date Care Activity Detail Author Start: 01-25-2025 Patient discharge [facility] Start: 01-20-2025 Provision of overbed trapeze [facility] Start: 01-20-2025 End: 01-20-2025 [facility] Start: 01-20-2025 Ambulation therapy management [facility] Start: 01-20-2025 Application of device [facility] Start: 01-20-2025 Assessment of risk of venous thromboembolism [facility] Start: 01-20-2025 Catheterization of vein [facility] Start: 01-20-2025 Exercises [facility] Start: 01-20-2025 Following clinical pathway protocol [facility] Start: 01-20-2025 Introduction of urinary catheter [facility] Start: 01-20-2025 Measuring intake and output [facility] Start: 01-20-2025 Neurovascular assessment [facility] Start: 01-20-2025 Patient education [facility] Start: 01-20-2025 Procedure discontinued [facility] Start: 01-20-2025 Provision of activity privileges [facility] Start: 01-20-2025 Recommendation to continue with treatment [facility] Start: 01-20-2025 Referral for physical therapy [facility] Start: 01-20-2025 Referral to occupational therapist [facility] Start: 01-20-2025 Vital signs measurements [facility] Start: 01-20-2025 Wound care [facility] Start: 01-20-2025 Care planning and problem solving actions [facility] Start: 01-20-2025 [facility] Start: 01-20-2025 Application of intermittent pneumatic compression device [facility] Start: 01-20-2025 Following clinical pathway protocol [facility] Start: 01-20-2025 Oxygen therapy [facility] Start: 01-20-2025 Referral to service [facility] Start: 01-20-2025 Admission procedure [facility] Start: 01-20-2025 Assessment of risk of venous thromboembolism [facility] Start: 01-20-2025 Insertion of catheter into peripheral vein [facility] Start: 01-20-2025 Providing care according to standard [facility] Start: 01-20-2025 Consultation [facility] Start: 01-20-2025 Documentation procedure [facility] Start: 01-20-2025 Measuring intake and output [facility] Start: 01-20-2025 End: 01-20-2025 [facility] Start: 12-29-2024 End: 12-29-2024 Patient encounter procedure 12/29/2024 10:00 AM EDT Office Visit Neurology [address] [address] Em Flynn APRN.ERCO MACHINE OPERATOR [address] [address] 6 month follow up Neurology Comment on above: 6 month follow up Start: 07-29-2024 End: 07-29-2024 Patient encounter procedure 07/29/2024 3:00 PM EDT Office Visit Neuromuscular [facility] [address] [place] [address] Armen Madison MD [address] [place] [address] 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 Neuromuscular [facility] Comment on above: 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 Start: 07-29-2024 End: 10-28-2024 Cobalamin (Vitamin B12) [Mass/volume] in Serum or Plasma [facility] Comment on above: Expected: 07/29/2024, Expires: Start: 07-29-2024 End: 10-28-2024 Folate [Mass/volume] in Serum or Plasma [facility] Comment on above: Expected: 07/29/2024, Expires: Start: 07-29-2024 End: 10-28-2024 Hemoglobin A1c in Blood [facility] Work Phone: Comment on above: Expected: 07/29/2024, Expires: Start: 07-29-2024 End: 10-28-2024 IMMUNOFIXATION SCREEN, SERUM [facility] Comment on above: Expected: 07/29/2024, Expires: Start: 07-29-2024 End: 10-28-2024 KAPPA/ERASMO,KATE,SER [facility] Comment on above: Expected: 07/29/2024, Expires: Start: 07-29-2024 End: 10-28-2024 Methylmalonate [Moles/volume] in Serum or Plasma [facility] Comment on above: Expected: 07/29/2024, Expires: Start: 07-29-2024 End: 10-28-2024 VITAMIN B1 (THIAMINE), WHOLE BLOOD [facility] Comment on above: Expected: 07/29/2024, Expires: Start: 06-02-2024 Urine microalbumin profile DTaP,Tdap,Td Vaccine (2 - Td or Tdap) [facility] Start: 04-13-2024 Advance Directive Discussion Advance Directive Discussion [facility] Start: 04-07-2024 End: 04-07-2024 Patient encounter procedure 04/07/2024 10:00 AM EST Office Visit Neurology [address] [address] Em Flynn, CLERICAL CLERK.ERCO MACHINE OPERATOR [address] [place] [address] 3 month follow up Neurology Comment on above: 3 month follow up Start: 12-31-2023 End: 12-31-2023 Patient encounter procedure 12/31/2023 9:00 AM EDT Office Visit Neurology [address] [address] Em Flynn, CLERICAL CLERK.ERCO MACHINE OPERATOR [address] [place] [address] 3 month follow up Neurology Comment on above: 3 month follow up Start: 12-13-2023 Covid-19 Vaccine ( season) Covid-19 Vaccine ( season) [facility] Start: 12-13-2023 Covid-19 Vaccine ( season) Covid-19 Vaccine ( season) [facility] Start: 12-13-2023 Influenza vaccination [facility] Start: 11-20-2023 End: 11-20-2023 Patient encounter procedure 11/20/2023 7:45 AM EDT Appointment Mammography [address] [address] INCONCLUSIVE MAMMOGRAM - ORDER SCANNED IN [facility] 09/24/23 Mammography Comment on above: INCONCLUSIVE MAMMOGRAM - ORDER SCANNED I N [facility] 09/24/23 Start: 10-02-2023 End: 10-02-2023 Patient encounter procedure Orthopedics Comment on above: Acute pain of left shoulder [M25.512] L shoulder Start: 09-29-2023 End: 09-29-2023 Patient encounter procedure 09/29/2023 9:00 AM EDT Office Visit Neurology [address] [phone] Em Flynn APRN.ERCO MACHINE OPERATOR [address] [address] Return in about 3 months (around 10/06/2023). Neurology Comment on above: Return in about 3 months (around 10/06/19). Start: 09-23-2023 End: 09-23-2023 Patient encounter procedure 09/23/2023 9:20 AM EDT Appointment Mammography [address] [place] [address] Franki breast us, left breast diagnostic mammogram Mammography Comment on above: Franki breast us, left breast diagnostic m ammogram Start: 09-23-2023 Subsequent hospital visit by physician 09/23/2023 9:20 AM EDT Hospital Encounter Mammography [address] [place] [address] Inconclusive mammogram [R92.2] Mammography Comment on above: Inconclusive mammogram [R92.2] Start: 08-27-2023 End: 08-27-2023 Patient encounter procedure 08/27/2023 1:40 PM EDT Office Visit [facility] [address] [address] Stephan Sheehan PA-C [address] [place] [id number] 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] [facility] Comment on above: Protrusion of cervical intervertebral di sc [M50.20] Start: 08-13-2023 End: 08-13-2023 Patient encounter procedure Mammography Comment on above: MAMMOGRAM SCREENING BILATERAL DEXA BONE DENSITY Start: 05-01-2023 [facility] Start: 04-13-2023 Advance Directive Discussion Advance Directive Discussion [facility] Start: 04-13-2023 Behavioral Health Screening Behavioral Health Screening [facility] Start: 04-13-2023 Depression Assessment Depression Assessment [facility] Start: 02-09-2023 Blood chemistry [facility] Start: 02-08-2023 Blood chemistry [facility] Start: 02-07-2023 Blood chemistry [facility] Start: 02-06-2023 Patient discharge [facility] Start: 02-03-2023 Administration of blood product [facility] Start: 02-02-2023 Ambulation therapy management [facility] Start: 02-02-2023 Application of device [facility] Start: 02-02-2023 Exercises [facility] Start: 02-02-2023 Following clinical pathway protocol [facility] Start: 02-02-2023 Introduction of urinary catheter [facility] Start: 02-02-2023 Neurovascular assessment [facility] Start: 02-02-2023 Patient education [facility] Start: 02-02-2023 Provision of activity privileges [facility] Start: 02-02-2023 Recommendation to continue with treatment [facility] Start: 02-02-2023 Referral to occupational therapist [facility] Start: 02-02-2023 Referral to service [facility] Start: 02-02-2023 Vital signs measurements [facility] Start: 02-02-2023 Wound care [facility] Start: 02-02-2023 [facility] Start: 02-02-2023 End: 02-02-2023 Measuring intake and output [facility] Start: 02-01-2023 Application of intermittent pneumatic compression device [facility] Start: 02-01-2023 Following clinical pathway protocol [facility] Start: 02-01-2023 Application of ice collar, cap or bag [facility] Start: 02-01-2023 Assessment of risk of venous thromboembolism [facility] Start: 02-01-2023 Bedrest [facility] Start: 02-01-2023 Consultation [facility] Start: 02-01-2023 Fall prevention [facility] Start: 02-01-2023 Inhalation therapy procedure [facility] Start: 02-01-2023 Insertion of catheter into peripheral vein [facility] Start: 02-01-2023 Introduction of urinary catheter [facility] Start: 02-01-2023 Neurovascular assessment [facility] Start: 02-01-2023 Providing care according to standard [facility] Start: 02-01-2023 Referral to occupational therapist [facility] Start: 02-01-2023 Referral to service [facility] Start: 02-01-2023 Skin care [facility] Start: 02-01-2023 [facility] Start: 02-01-2023 End: 02-01-2023 Measuring intake and output [facility] Start: 02-01-2023 Admission procedure [facility] Start: 02-01-2023 Hospital admission, emergency, from emergency room, medical nature [facility] Start: 02-01-2023 Brain natriuretic peptide measurement [facility] Start: 12-12-2022 Covid-19 Vaccine ( season) Covid-19 Vaccine ( season) [facility] Start: 12-12-2022 Influenza vaccination [facility] Start: 04-13-2022 ADVANCE DIRECTIVE DISCUSSION ADVANCE DIRECTIVE DISCUSSION [facility] Start: 04-13-2022 DEPRESSION ASSESSMENT DEPRESSION ASSESSMENT [facility] Start: 01-07-2019 Shingrix Vaccine (2 of 2) Shingrix Vaccine (2 of 2) [facility] Start: 2016 RSV Vaccine (1 - 1-dose 75+ series) RSV Vaccine (1 - 1-dose 75+ series) [facility] Start: 2006 BONE DENSITY BONE DENSITY [facility] Start: 2006 Bone Density Screening Bone Density Screening [facility] Start: 2006 Pneumococcal Vaccine: 65+ (1 - PCV) Pneumococcal Vaccine: 65+ (1 - PCV) [facility] Start: 2006 Pneumococcal Vaccine: 65+ (1 of 1 - PCV) Pneumococcal Vaccine: 65+ (1 of 1 - PCV) [facility] Start: 2006 PNEUMOCOCCAL: 65+ (1 - PCV) PNEUMOCOCCAL: 65+ (1 - PCV) [facility] Start: 2006 Screening for osteoporosis Bone Density Screening [facility] Start: 2001 RSV Vaccine (1 - 1-dose 60+ series) RSV Vaccine (1 - 1-dose 60+ series) [facility] Start: 1991 SHINGRIX VACCINE (1 of 2) SHINGRIX VACCINE (1 of 2) [facility] Start: 1986 DIABETES SCREEN DIABETES SCREEN [facility] Start: 1986 Diabetes Screening Diabetes Screening [facility] Start: 1960 Urine microalbumin profile [facility] Start: 1959 Anxiety Screening Anxiety Screening [facility] Start: 1959 Depression Screening Depression Screening [facility] Start: 1959 Hepatitis B surface antibody level LDL CHOLESTEROL [facility] Start: 1941 COVID-19 VACCINE (#1) COVID-19 VACCINE (#1) [facility] Hematocrit [Volume Fraction] of Blood [facility] Hematocrit [Volume Fraction] of Blood [facility] Hemoglobin [Mass/vol ume] in Blood [facility] Hemoglobin [Mass/vol ume] in Blood [facility] Leukocytes [#/volume ] in Blood [facility] Leukocytes [#/volume ] in Blood [facility] Mean corpuscular hemoglobin concentration determination [facility] Mean corpuscular hemoglobin concentration determination [facility] Mean corpuscular hemoglobin determination [facility] Mean corpuscular hemoglobin determination [facility] End: 08-04-2024 MR Cervical spine WO contrast MRI CERVICAL SPINE WO IVCON Radiology Routine 1 Occurrences starting 07/06/2023 until 08/04/2024 [facility] Work Phone: Comment on above: 1 Occurrences starting 07/06/2023 until 08/04/[address] [facility] Neutrophil count [facility] Neutrophil percent differential count [facility] Neutrophil percent differential count [facility] Patient Education [facility] Work Phone: Patient referral [facility] Work Phone: Platelets [#/volume] in Blood [facility] Platelets [#/volume] in Blood [facility] Red blood cell count [facility] Red blood cell count [facility] Red cell distributio n width determination [facility] Red cell distributio n width determination [facility] XR Shoulder - left 3 Views XR SHOULDER GENERAL 3V OR MORE AP/TRUE AP/OTHER LEFT Radiology Routine Chronic left shoulder pain 1 Occurrences starting 09/15/2023 [facility] Work Phone: Comment on above: 1 Occurrences starting 09/15/2023 [facility] Payers Date Payer Category Payer Self-pay 2024 Medicaid [id number] 2023 Medicaid [id number] 2023 Medicare (Managed Care) [facility] [id number] 2023 Medicare [id number] 2022 Medicare [id number] Unknown [id number] Unknown [id number] 2.16.840.1.855899.3.579.2. 462 Unknown [id number] 2.16.840.1.489105.3.579.2. 462 Unknown [id number] 2.16.840.1.329234.3.579.2. 462 Unknown [id number] 2.16.840.1.697444.3.579.2. 462 Unknown [id number] 2.16.840.1.495099.3.579.2. 462 Unknown [id number] 2.16.840.1.153423.3.579.2. 462 Unknown [id number] 2.16.840.1.351809.3.579.2. 462 Unknown [id number] 2.16.840.1.742740.3.579.2. 462 Unknown [id number] 2.16.840.1.534306.3.579.2. 462 Unknown [id number] 2.16.840.1.705081.3.579.2. 462 Unknown [id number] 2.16.840.1.129847.3.579.2. 462 Unknown [id number] 2.16.840.1.723652.3.579.2. 462 Unknown [id number] 2.16.840.1.114989.3.579.2. 462 Unknown [id number] 2.16.840.1.674951.3.579.2. 462 Unknown [id number] 2.16.840.1.068196.3.579.2. 462 Social History Date Type Detail Facility Start: 2022 End: 05-01-2023 Tobacco smoking status [facility] Unknown if ever smoked [facility] Start: 1940 Sex Assigned At Female [facility] Start: 10-09-2022 End: 01-20-2025 Tobacco smoking status [facility] Ex-smoker [facility] History of tobacco use Current smoker [facility] History of tobacco use Cigarette Smoker [facility] Start: 10-09-2022 End: 08-27-2023 Tobacco use and exposure Smokeless tobacco non-user [facility] Start: 10-09-2022 End: 07-29-2024 Alcohol intake Lifetime non-drinker (finding) [facility] Start: 1940 Sex Assigned At Not on file [facility] Start: 01-20-2023 End: 07-29-2024 History of Social function [facility] Start: 01-20-2023 End: 07-29-2024 Tobacco use panel [facility] National Score (1-100), lower number is lower risk 51 [facility] Start: 06-16-2024 [facility] (finding[facility] NE[facility]: Highlighted row [facility] NEGATED: Highlighted rowStart: NINF History of tobacco use Passive smoker [facility] Medical Equipment Procedure Code Equipment Code Equipment Origin al Text Equipment Identifier Dates Primary uncemented hemiarthroplasty of hip ([id number]) Uncoated hip femur prosthesis, one-piece ()[id number] FDA Start: 01-20-2025 Primary uncemented hemiarthroplasty of hip Uncoated hip femur prosthesis, one-piece ()[id number] FDA Start: 01-20-2025 Primary uncemented hemiarthroplasty of hip ([id number]) Coated hip femur prosthesis, modular ()[id number] FDA Start: 01-20-2025 ORIF, hip, using Gamma nail ([id number]) Orthopaedic bone screw, non-bioabsorbable, sterile ()[id number] FDA Start: 02-02-2023 ORIF, hip, using Gamma nail ([id number]) Femur nail, sterile ()[id number] FDA Start: 02-02-2023 ORIF, hip, using Gamma nail ([id number]) Orthopaedic bone screw, non-bioabsorbable, sterile ()[id number] FDA Start: 02-02-2023 Goals Date Patient Goal Desired Activity /State Functional Status Date Assessment Result Facility 01-25-2025 Functional status Ambulates [facility] Work Phone: 02-06-2023 Functional status Ambulates [facility] Work Phone: Mental Status Date Assessment Result Facility 01-25-2025 Cognitive function Voice/Name [facility] Work Phone: 02-06-2023 Cognitive function Voice/Name [facility] Work Phone: Clinical Notes 10-09-2022 to 01-25-2025 Note Date & Type Note Facility 01-25-2025 Note [facility] Medical Records Department [address] [place] [address] Discharge Summary 01/25/25 1449 MR#: [id number] Acct: [id number] Name: MONISHA COHN Rep #: [id number] : 1940 84 From: Davian Kelly MD PCP: Tressa Rosales Status:DIS [id number] Prov[facility] Date of Admission: 01/20/25 Primary Care [...] pulmonary hypertension, CAD; with RCA stent at [facility] in [place] (2009) and subsequent inferior wall ST elevation OR s/p RCA stent with cardiogenic shock and [...] recently diagnosed COVID-19 who was transferred from [facility] after she was diagnosed with [...] LOC with her fall. Dr. [facility] of [facility] spoke to Dr. Tijerina of the orthopedic service here (more content not included)... [facility] 01-25-2025 Consult note [facility] 01-25-2025 Consult note [facility] 01-25-2025 Consult note Note Date/Time January 25, 2025 1:00pm [facility] Medical Records Department [address] [place] [address] Counseling Note - Pharmacy 01/25/25 0938 MR#: [id number] Acct: [id number] Name: MONISHA COHN Rep #:[id number] : 1940 84 From: Ephraim severino PCP: Tressa Rosales Status:ADM IN Y Location: [facility] [id number] [facility]acy [place] Med Reconciliation Pharmacy Service has performed discharge [...] release 81 mg PO BREAKFAST #0 tabs 10/15/25 rivaroxaban 10 mg tablet (Xarelto) 10 mg PO DAILY@0600 9 days #0 tabs 01/25/25 01/25/25937 <Electronically signed by Ephraim Carrera> Date _ Ephraim Elliott Signature (if applicable): Date CC: ~ Signed [facility] Work Phone: 1(783) 959-141610-15-2025 Discharge summary Author Davian Kelly [facility] Note Date/Time January 25, 2025 9 :25am [facility] Medical Records Department [address] [place] [address] Transfer to [facility] MR#: [id number] Acct: [id number] Name: MONISHA COHN Rep #:[id number] : 1940 84 From: Davian interiano [...] PRIOR TO HIS/HER TRANSFER TO [facility]. 01/25/25924<Electronically signed by Davian Kelly MD> Diet [...] repair 01/20/2025 -After mechanical fall at [facility] -Ortho consulted -Patient n.p.o. -Pain control/supportive care [...] in before D/C Order can be placed): Long-Term Facility (1) Closed hip fracture Qualifiers: Encounter [...] Dr. Braulio Tijerina MD; Tressa Rosales ~ [facility] Work Phone: 1(408) 923-666610-15-2025 Discharge summary [facility] Medical Records Department [address] [place] [address] Transfer to [facility] MR#: [id number] Acct: [id number] Name: MONISHA COHN Rep #:[id number] : 1940 84 From: Davian interiano [...] repair 01/20/2025 -After mechanical fall at [facility] -Ortho consulted -Patient n.p.o. -Pain control/supportive care [...] in before D/C Order can be placed): Long-Term Facility (1) Closed hip fracture Qualifiers: Encounter [...] Dr. Braulio Tijerina MD; Tressa Rosales ~ [facility]10-14-2025 Progress note Author Davian Kelly [facility] Note Date/Time January 24, 2025 1 0:33am [facility] Medical Records Department [address] [place] [address] Progress Note - Hospitalist 01/24/25 1031 MR#: [id number] Acct: [id number] Name: MONISHA COHN Rep #:[id number] 0 : 1940 84 From: Davian interiano MD PCP: Tressa Rosales Status:ADM IN Location: MS3 AY333-6 Subjective Subjective Doing well, no issues overnight. [...] repair 01/20/2025 -After mechanical fall at [facility] -Ortho consulted -Patient n.p.o. -Pain control/supportive care [...] DVT: Xarelto Charges/Coding Visit Charges Inpatient E&M: 80366 Subs Hosp L2 01/24/25 1033 <Electronically signed by Davian Kelly MD> Cosigner Signature (if applicable): CC: ~ Signed [facility] Work Phone: 1(166) 643-330210-14-2025 Progress note [facility] Medical Records Department [address] [place] [address] Progress Note - Hospitalist 01/24/25 1031 MR#: [id number] Acct: [id number] Name: MONISHA COHN Rep #:[id number] 0 : 1940 84 From: Davian interiano MD PCP: Tressa Rosales Status:ADM IN [place] [facility] [place] Subjective Subjective Doing well, no issues overnight. [...] repair 01/20/2025 -After mechanical fall at [facility] -Ortho consulted -Patient n.p.o. -Pain control/supportive care [...] DVT: Xarelto Charges/Coding Visit Charges Inpatient E&M: 93955 Subs Hosp L2 01/24/25 1033 Cosigner Signature (if applicable): CC: ~ Signed [facility]10-13-2025 Progress note Author Davian Kelly [facility] Note Date/Time January 23, 2025 1 1:01am [facility] Medical Records Department [address] [place] [address] Progress Note - Hospitalist 01/23/25 1053 MR#: [id number] Acct: [id number] Name: MONISHA COHN Rep #:[id number] 4 : 1940 84 From: Davian interiano MD PCP: Tressa Rosales Status:ADM IN Location: AZ3 QA672-4 Subjective Subjective Pain is controlled, no issues [...] DVT: Xarelto Charges/Coding Visit Charges Inpatient E&M: 21395 Subs Hosp L2 01/23/25 1101 <Electronically signed by Davian Kelly MD> Cosigner Signature (if applicable): CC: ~ Signed [facility] Work Phone: 1(376) 944-568710-13-2025 Progress note [facility] Medical Records Department [address] [place] [address] Progress Note - Hospitalist 01/23/25 1053 MR#: [id number] Acct: [id number] Name: MONISHA COHN Rep #:[id number] 4 : 1940 84 From: Davian interiano MD PCP: Tressa Rosales Status:ADM IN [place] [facility] NG967-0 Subjective Subjective Pain is controlled, no issues [...] repair 01/20/2025 -After mechanical fall at [facility] -Ortho consulted -Patient n.p.o. -Pain control/supportive care [...] DVT: Xarelto Charges/Coding Visit Charges Inpatient E&M: 98031 Subs Hosp L2 01/23/25 1101 Cosigner Signature (if applicable): CC: ~ Signed [facility]10-12-2025 Progress note Author Davian Kelly [facility] Note Date/Time January 22, 2025 9 :19am [facility] Medical Records Department [address] [place] [address] Progress Note - Hospitalist 01/22/25917 MR#: [id number] Acct: [id number] Name: MONISHA COHN Rep #:[id number] 0 : 1940 84 From: Davian interiano MD PCP: Tressa Rosales Status:ADM IN [place] [facility] [place]O682-3 Subjective Subjective Doing well, pain is controlled. [...] repair 01/20/2025 -After mechanical fall at [facility] -Ortho consulted -Patient n.p.o. -Pain control/supportive care [...] DVT: Xarelto Charges/Coding Visit Charges Inpatient E&M: 72490 Subs Hosp L2 01/22/25918 <Electronically signed by Davian Kelly MD> Cosigner Signature (if applicable): CC: ~ Signed [facility] Work Phone: 1(769) 478-743910-12-2025 Progress note [facility] Medical Records Department [address] [place] [address] Progress Note - Hospitalist 01/22/25917 MR#: [id number] Acct: [id number] Name: MONISHA COHN Rep #:[id number] 0 : 1940 84 From: Davian interiano MD PCP: Tressa Rosales Status:ADM IN Location: [place] [address] Subjective Subjective Doing well, pain is controlled. [...] DVT: Xarelto Charges/Coding Visit Charges Inpatient E&M: 35108 Subs Hosp L2 01/22/25 0919 Cosigner Signature (if applicable): CC: ~ Signed [facility]10-11-2025 Progress note Author Braulio Lilliana [facility] Note Date/Time January 21, 2025 1 :41pm [facility] Medical Records Department [address] [place] [address] Progress Note - Orthopedic 01/21/25 1335 MR#: [id number] Acct: [id number] Name: OMNISHA COHN Rep #:[id number] 7 : 1940 84 From: Braulio Fontana PCP: Tressa Rosales Status:ADM IN Location: MS3 RX324-6 Subjective Subjective Patient states she is doing [...] hip surgical and chronic changes. [facility]-Ray 01/20/25 16:20 IMPRESSION: Uncomplicated appearing [...] Cosigner Signature (if applicable): CC: ~ Signed [facility] Work Phone: 1(184) 111-572710-11-2025 Progress note [facility] Medical Records Department [address] [place] [address] Progress Note - Orthopedic 01/21/25 1335 MR#: [id number] Acct: [id number] Name: MONISHA COHN Rep #:[id number] 7 : 1940 84 From: Braulio Fontana PCP: Tressa Rosales Status:ADM IN Location: MS3 PU546-3 Subjective Subjective Patient states she is doing [...] hip surgical and chronic changes. [facility]-Ray 01/20/25 16:20 IMPRESSION: [...] Cosigner Signature (if applicable): CC: ~ Signed [facility]10-11-2025 Progress note Author Davian Kelly [facility] Note Date/Time January 21, 2025 9 :43am [facility] Medical Records Department [address] [place] [address] Progress Note - Hospitalist 01/21/25 0939 MR#: [id number] Acct: [id number] Name: SUKIMONISHAXu GEORGE Rep #:[id number] 7 : 1940 84 From: Davian interiano MD PCP: Tressa Rosales Status:ADM IN Location: MS3 LN063-4 Subjective Subjective Doing well, no issues overnight. [...] hip surgical and chronic changes. Reading [facility] X-Ray 01/20/25 16:20 IMPRESSION: Uncomplicated appearing right hip hemiarthroplasty. Left hip chronic and surgical changes. Reading [facility] Physical Exam Narrative General: Alert, [...] repair 01/20/2025 -After mechanical fall at [facility] -Ortho consulted -Patient n.p.o. -Pain control/supportive care [...] DVT: Xarelto Charges/Coding Visit Charges Inpatient E&M: 64463 Subs Hosp L2 01/21/25942 <Electronically signed by Davian Kelly MD> Cosigner Signature (if applicable): CC: ~ Signed [facility] Work Phone: 1(933) 250-256010-11-2025 Progress note [facility] Medical Records Department [address] [place] [address] Progress Note - Hospitalist 01/21/25938 MR#: [id number] Acct: [id number] Name: MONISHA COHN Rep #:[id number] 7 : 1940 84 From: Davian interiano MD PCP: Tressa Rosales Status:ADM IN Location: [place] [address]-1 Subjective Subjective Doing well, no issues overnight. [...] hip surgical and chronic changes. Reading Location: [facility] Hip X-Ray 01/20/25 16:20 IMPRESSION: Uncomplicated appearing right hip hemiarthroplasty. Left hip chronic and surgical changes. Reading Location: [facility] Physical Exam Narrative General: Alert, Oriented x3, [...] DVT: Xarelto Charges/Coding Visit Charges Inpatient E&M: 17828 Subs Hosp L2 01/21/25 0943 Cosigner Signature (if applicable): CC: ~ Signed [facility]10-10-2025 Consult note Author Brennen Rojas [facility] Note Date/Time January 20, 2025 5 :17pm [facility] Medical Records Department [address] [place] [address] Anesthesia Postop Eval I 01/20/25 1715 MR#: [id number] Acct: [id number] Name: MONISHA COHN Rep #:[id number] 0 : 1940 84 From: Brennen Rojas CRNA PCP: Tressa Rosales Status:ADM IN Y Race: C Location: [place] [address] Anesthesia: Postop Eval I Current Vital Signs [...] Yes 01/20/251716 <Electronically signed by Brennen paz REHABILITATION MANAGER> Date _ Brennen Rojas REHABILITATION MANAGER Cosigner Signature: Date CC: ~ Signed [facility] Work Phone: 1([phone] 754-660410-10-2025 Consult note Author Jareth Shepard [facility] Note Date/Time January 25, 2025 1 :00pm [facility] Medical Records Department [address] [place] [address] Anesthesia Postop Eval II 01/20/251705 MR#: [id number] Acct: [id number] Name: MONISHA COHN Rep #:[id number] 7 : 1940 84 From: Jareth Shepard MD PCP: Tressa Rosales Status:ADM IN Y Race: C [place] [facility] MS[place] -1 Anesthesia Postop Eval I Sum [...] Jareth Elliott Signature: Date CC: ~ Signed [facility] Work Phone: 1(517) 160-739410-10-2025 Procedure note [facility] Medical Records Department [address] [place] [address] Operative Report 01/20/25 1545 MR#: [id number] Acct: [id number] Name: MONISHA COHN Rep #:[id number] : 1940 84 From: Braulio Fontana PCP: Tressa Rosales Status:ADM IN Location: [place] [address]-1 Operative Report (Standard) Operative Information Date of Procedure: 01/20/25 Pre-Operative Diagnosis: Right hip subcapital femoral neck fracture Post-Operative Diagnosis: Right hip subcapital femoral neck fracture Surgery/Procedure Performed: Right hip endoprosthesis iron melter: Yes Livestock Sales Representative: Edyta Bhatti Tasks completed by assistance representative: Opening, Closing, Implanting device and Retracting Additional speech pathology assistant?: No Type of Anesthesia: General RN [...] femoral stem size 4 high offset 2. [place] [employer] cobalt-chromium 43 mm femoral head with [...] awakened by anesthesia and transferred to the [facility]. Patient was then transferredto the PACU for [...] applicable): CC: Dr. Stephan Martel DO; Dr. Braulio Tijerina MD; Tressa Rosales~ Signed [facility]10-10-2025 Consult note [facility] Medical Records Department [address] [place] [address] Anesthesia Postop Eval I 01/20/25 1715 MR#: [id number] Acct: [id number] Name: MONISHA COHN Rep #:[id number] 0 : 1940 84 From: Brennen Rojas CRNA PCP: Tressa Rosales Status:ADM IN Y Race: C Location: MS3 MS309 -1 Anesthesia: Postop Eval I Current [...] Eval 1 completed: Yes 01/20/25 1717 an REHABILITATION MANAGER> Date _ Brennen Rojas REHABILITATION MANAGER Cosigner Signature: Date CC: ~ Signed [facility]10-10-2025 Radiology Diagnostic study note [facility] Imaging Services [address] [place] [address] [id number] Hip Min 2 Views (Portable) MR#: [id number] Acct: [id number] Name: MONISHA COHN Rep #: [id number] : 1940 F 84 From: Christine Gillette MD PCP: Tressa Rosales Status: ADM IN Study:Hip Min 2 Views (Portable) Date of Exam : 01/20/25 Exam# [id number] Ordering Dr: Rachele Tijerina MD PROCEDURE: HIP [...] Dr. Braulio Tijerina MD; Tressa Rosales ~ Yard Supervisor Cotton Gin: Signed [facility]10-10-2025 Consult note Author Braulio Tijerina [facility] Note Date/Time January 20, 2025 2 :24pm [facility] Medical Records Department [address] [place] [address] Consultation - Orthopedics 01/20/25 1415 MR#: [id number] Acct: [id number] Name: MONISHA COHN Rep #:[id number] 9 : 1940 84 From: Braulio Fontana PCP: Tressa Rosales Status:ADM IN [place] [facility] WR519-7 HPI Consult Data Date of Consult: 01/20/25 [...] Patient notes that [facility] and ambulates with a walker or uses a wheelchair. She does notwalk independently. She was reported to have fallen yesterday and sustained an injury to her right hand and hip. She was seen at an outside hospital and requested transfer to [facility] as they did not have orthopedics. She [...] denies any current treatment or active malignancies. [facility] Medical History Nocturia Urge incontinence Overactive bladder Former tobacco use Depression Hypertension Fall [facility] (closed head injury) Presence of stent in coronary artery (~12/22/21) Atherosclerotic heart disease of [place] coronary artery without angina pectoris ST elevation [...] mg chewable tablet 125 mg PO QD-BID IL N abdominal 12/28/24 Unknown History (Mylanta Gas) [...] 81.1 H, Lymph % (Auto) 11.1 L, Hendricks % (Auto) 7.2, Eos % (Auto) 0.1, [...] Sl. Cloudy, Urine pH 6.5, Ur Specific [place] 1.010, Urine Protein 15 H, Urine Glucose [...] on a walker through her elbow. 01/20/25 4844 <Electronically signed by Braulio Tijerina MD> Cosigner Signature (if applicable): CC: Tressa Rosales~ Signed [facility] Work Phone: 1(281) 757-834110-10-2025 Radiology Diagnostic study note [facility] Imaging Services [address] [place] [address] [id number] Hip Min 2 Views (Portable) MR#: [id number] Acct: [id number] Name: MONISHA COHN Rep #: [id number] 4 : 1940 F 84 From: Christine Gillette MD PCP: Tressa Rosales Status: ADM IN Study:Hip Min 2 Views (Portable) Date of Exam : 01/20/25 Exam# [id number] Ordering Dr: Rachele Tijerina MD PROCEDURE: HIP [...] hip surgical and chronic changes. Reading [facility] CC: Dr. Braulio Tijerina MD; Tressa Rosales ~ Yard Supervisor Cotton Gin: Signed [facility]10-10-2025 Consult note Author Jareth [facility] Note Date/Time January 20, 2025 2 :03pm [facility] Medical Records Department [address] [place] [address] Pre-Anesthesia Evaluation 01/20/25 1342 MR#: [id number] Acct: [id number] Name: MONISHA COHN Rep #:[id number] 7 : 1940 84 From: Jareth Shepard MD PCP: Tressa Rosales Status:ADM IN Y Race: C Location: [place] [address] -1 ASA Classification* ASA Classification ASA Classification: [...] hip hemiarthroplasty Anesthesia History 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: 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 Hx Hospitalization Any Problems With Anesthesia No [...] take am of surgery PONV PONV - business systems technician: PONV - business systems technician Female HX of Motion Sickness HX of N/V After Surgery Non-Smoker Duration of Surgery greater than 60 minutes Number of Risk Factors PONV Score Height & Weight Height & Weight: Anesthesia: Height & Weight Height 5 ft 1.81 in 01/20/25 11:58 Weight: 75 kg 01/20/25 11:58 Body Mass Index (BMI) 30.4 01/20/25 11:58 Respiratory Assessment Respiratory Assessment - business systems technician: Respiratory Tract Infection Hx - business systems technician Hx Respiratory Tract Infection Yes: covid 01/20/25 [...] STOP Sleep Apnea STOP Sleep Apnea - business systems technician: STOP Sleep Apnea - business systems technician Hx Hypertension Yes 01/20/25 01:18 Hx Sleep [...] 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 - business systems technician: 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 - business systems technician Tobacco Use Smoking Status Former smoker 01/20/25 01:18 Hx Tobacco Use No 01/20/25 01:18 Years Smoking Packs Smoked per Day Smoking Cessation Date was No - quit smoking greater 01/20/25 01:18 within the last 15 years than 15 years ago Hx Smoking Cessation Date 04/13/79 01/20/25 01:18 Hx Smoking Cessation Counseling Hematologic Medial History Hematologic Hx - business systems technician: Hematologic Medical Hx - nurse discharge Hx of Blood Transfusion Yes 01/20/25 01:18 [...] confused, unrespo /Reproduction History /Reproductive History - business systems technician: /Reproductive Hx- business systems technician Hx Now No 01/20/25 01:31 Gestational Age [...] mls @ 15 mls/hr 01/20/25 01:13 IV .[id number] PRN Saline Flush Sodium Chloride 250 mls @ 15 mls/hr 01/20/25 01:13 IV .[id number] PRN Additional IVPB Infusion Lactated Ringer's 1,000 [...] coronary artery (~12/22/21) Atherosclerotic heart disease of [place] coronary artery without angina pectoris ST elevation [...] mg chewable tablet 125 mg PO QD-BID IL N abdominal 12/28/24 Unknown History (Mylanta Gas) [...] MD Cosigner Signature: Date CC: ~ Signed [facility] Work Phone: 1(782) 169-259610-10-2025 Consult note [facility] Medical Records Department [address] [place] [address] Consultation - Orthopedics 01/20/25 1415 MR#: [id number] Acct: [id number] Name: MONISHA COHN Rep #:[id number] 9 : 1940 84 From: Braulio Fontana PCP: Tressa Rosales Status:ADM IN [place] [facility] [place]-1 HPI Consult Data Date of Consult: 01/20/25 [...] Patient notes that she lives in a penit[facility]iary facility and ambulates with a walker or uses a wheelchair. She does notwalk independently. She was reported to have fallen yesterday and sustained an injury to her right hand and hip. She was seen at an outside hospital and requested transfer to [facility] as they did not have orthopedics. She [...] Patient denies any current treatment or activemalignancies. [facility] Medical History Nocturia Urge incontinence Overactive bladder Former tobacco use Depression Hypertension Fall [facility] (closed head injury) Presence of stent in coronary artery (~12/22/21) Atherosclerotic heart disease of [place] coronary artery without angina pectoris ST elevation [...] mg chewable tablet 125 mg PO QD-BID IL N abdominal 12/28/24 Unknown History (Mylanta Gas) [...] 81.1 H, Lymph % (Auto) 11.1 L, Hendricks % (Auto) 7.2, Eos % (Auto) 0.1, [...] Sl. Cloudy, Urine pH 6.5, Ur Specific [place] 1.010, Urine Protein 15 H, Urine Glucose [...] Signature (if applicable): CC: Tressa Rosales~ Signed [facility]10-10-2025 Progress note Author Darline Lundy [facility] Note Date/Time January 20, 2025 1 2:07pm [facility] Medical Records Department [address] [place] [address] Progress Note - Hospitalist 01/20/25 0842 MR#: [id number] Acct: [id number] Name: MONISHA COHN Rep #:[id number] : 1940 84 From: Darline Lundy MD PCP: Tressa Rosales Status:ADM IN Location: AZ3 YM312-1 Hospitalist Note 84y/o F with a history of coronary artery disease with RCA stent, Parkinson's disease, fibromyalgia and overactive bladder, recent COVID diagnosis, who presented [facility] ED 01/20/2025 as a transfer from [facility] after she was found to have an impacted right femoral neck fracture. [facility] when she sustained a mechanical fall on her right side and subsequently could not please ambulate to assess for home O2 needs. Was noted to have a scalp hematoma and metacarpal fracture of right hand but denied any loss of consciousness with the fall. [facility] ED physician spoke to Dr. Tijerina withorthopedisofi who recommended admission to the hospital service with formal consultation for ORIF. Patient was transferred to a medical floor. # Impacted right intertrochanteric fracture of the femoral neck and metacarpal fracture right hand -After mechanical fall at [facility] -Ortho consulted -Patient n.p.o. 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: 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 Hx Hospitalization Any Problems With Anesthesia No [...] take am of surgery PONV PONV - business systems technician: PONV - business systems technician Female HX of Motion Sickness HX of N/V After Surgery Non-Smoker Duration of Surgery greater than 60 minutes Number of Risk Factors PONV Score Height & Weight Height & Weight: Anesthesia: Height & Weight Height 5 ft 1.81 in 01/20/25 11:58 Weight: 75 kg 01/20/25 11:58 Body Mass Index (BMI) 30.4 01/20/25 11:58 Respiratory Assessment Respiratory Assessment - business systems technician: Respiratory Tract Infection Hx - business systems technician Hx Respiratory Tract Infection Yes: covid 01/20/25 [...] STOP Sleep Apnea STOP Sleep Apnea - business systems technician: STOP Sleep Apnea - business systems technician Hx Hypertension Yes 01/20/25 01:18 Hx Sleep [...] 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 - business systems technician: 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 - business systems technician Tobacco Use Smoking Status Former smoker 01/20/25 01:18 Hx Tobacco Use No 01/20/25 01:18 Years Smoking Packs Smoked per Day Smoking Cessation Date was No - quit smoking greater 01/20/25 01:18 within the last 15 years than 15 years ago Hx Smoking Cessation Date 04/13/79 01/20/25 01:18 Hx Smoking Cessation Counseling Hematologic Medial History Hematologic Hx - business systems technician: Hematologic Medical Hx - nurse discharge Hx of Blood Transfusion Yes 01/20/25 01:18 [...] confused, unrespo /Reproduction History /Reproductive History - business systems technician: /Reproductive Hx- business systems technician Hx Now No 01/20/25 01:31 Gestational Age [...] mls @ 15 mls/hr 01/20/25 01:13 IV .[id number] PRN Saline Flush Sodium Chloride 250 mls @ 15 mls/hr 01/20/25 01:13 IV .[id number] PRN Additional IVPB Infusion Lactated Ringer's 1,000 [...] Glycol 3350 17 Gm Packet [facility] Psyllium Hydrophilic Mucilloid 1 packet 01/20/25 10:00 Psyllium 1 Packet [facility] Sodium Chloride 10 - 40 ml 01/20/25 01:13 01/20/25 09:21 0.9% Saline Lock 10 Ml Syringe IV 10 ml UD PRN Administration SALINE FLUSH PFSH Medical History Nocturia Urge incontinence Overactive bladder Former tobacco use Depression Hypertension Fall [facility] (closed head injury) Presence of stent in coronary artery (~12/22/21) Atherosclerotic heart disease of [place] coronary artery without angina pectoris ST elevation [...] mg chewable tablet 125 mg PO QD-BID IL N abdominal 12/28/24 Unknown History (Mylanta Gas) [...] MD Cosigner Signature: Date CC: ~ Signed [facility]10-10-2025 Progress note [facility] Medical Records Department [address] [place] [address] Progress Note - Hospitalist 01/20/25 0842 MR#: [id number] Acct: [id number] Name: MONISHA COHN Rep #:[id number] 3 : 1940 84 From: Darline Lundy MD PCP: Tressa Rosales Status:ADM IN Location: MS3 WQ683-0 Hospitalist Note 84y/o F with a history of coronary artery disease with RCA stent, Parkinson's disease, fibromyalgiaand overactive bladder, recent COVID diagnosis, who presented [facility] ED 01/20/2025 as a transfer from [facility] after she was found to have an impacted right femoral neck fracture. Carla masterson was at [facility] when she sustained a mechanical fall on her right side and subsequently could not please ambulate to assess for home O2 needs. Was noted to have a scalp hematoma and metacarpal fracture of right hand but denied any loss of consciousness with the fall. [facility] ED physician spoketo Dr. Tijerina withorthopedics who recommended admission to the hospital service with formal consultation for ORIF. Patient was transferred to a medical floor. # Impacted right intertrochanteric fracture of the femoral neck and metacarpal fracture right hand -After mechanical fall at [facility] -Ortho consulted -Patient n.p.o. -Pain control/supportive care [...] Cosigner Signature (if applicable): CC: ~ Signed [facility] History and physical note Author Stephan Beard [facility] Note Date/Time January 20, 2025 6 :54am [facility] Medical Records Department [address] [place] [address] H&P Exam - Hospitalist 01/20/25 0112 MR#: [id number] Acct: [id number] Name: MONISHA COHN Rep #:[id number] : 1940 84 From: Stephan Hernandez DO PCP: Tressa Rosales Status:ADM [place] [facility] [id number] [facility] - General General Date of Admission: 01/20/25 Date of Service: 01/20/25 Chief Complaint: Fall with Right Hip Fracture. HPI Narrative MONISHA COHN, is a 84 F with a past medical history of essential hypertension; currently not on treatment, hyperlipidemia; on atorvastatin, former tobacco abuse; with subsequent COPD and pulmonary hypertension, CAD; with RCA stent at [facility] in [place] (2009) and subsequent inferior wall ST elevation OR s/p RCA stent with cardiogenic shock and [...] recently diagnosed COVID-19 who was transferred from [facility] she was diagnosed with an impacted Right [...] LOC with her fall. Dr. [facility] of [facility] spoke to Dr. Tijerina of the orthopedic service here who recommended admission to the hospitalist service with formal consultation pending in the a.m. for ORIF. She was then admitted to the generalmedical floor for ongoing care for stay that is expected to extend beyond 2 midnights. [facility] Medical History Nocturia Urge incontinence Overactive bladder Former tobacco use Depression Hypertension Fall [facility] (closed head injury) Presence of stent in coronary artery (~12/22/21) Atherosclerotic heart disease of [place] coronary artery without angina pectoris ST elevation [...] mg chewable tablet 125 mg PO QD-BID [place] N abdominal 12/28/24 Unknown History (Mylanta Gas) [...] in AM. Give acetaminophen as needed for lact-aa-nphajtel (level 1-5/10) pain or fever. Give morphine [...] before. 4. CAD; with RCA stent at [facility] in [place] (2009) and subsequent inferior wall ST elevation OR s/p RCA stent with cardiogenic shock and [...] 75 minutes. Charges/Coding Visit Charges Inpatient E&M: 48580 Init Hosp L3 01/20/25 0654 <Electronically signed by Stephan Martel DO> Cosigner Signature (if applicable): CC: Dr. Stephan Martel DO; Tressa Rosales~ Signed [facility] Work Phone: 1(738) 241-568710-10-2025 History and physical note [facility] Medical Records Department [address] [place] [address] H&P Exam - Hospitalist 01/20/25 0112 MR#: [id number] Acct: [id number] Name: MONISHA COHN Rep #:[id number] : 1940 84 From: Stephan Hernandez DO PCP: Tressa Rosales Status:ADM IN Location: MS3 [id number] [facility] - General General Date of Admission: 01/20/25 Date of Service: 01/20/25 Chief Complaint: Fall with Right Hip Fracture. HPI Narrative MONISHA COHN, is a 84 F with a past medical history of essential hypertension; currently not on treatment, hyperlipidemia; on atorvastatin, former tobacco abuse; with subsequent COPD and pulmonary hypertension, CAD; with RCA stent at [facility] in [place] (2009) and subsequent inferior wall ST elevation OR s/p RCA stent with cardiogenic shock and [...] recently diagnosed COVID-19 who was transferred from [facility] she was diagnosed with an impacted Right [...] LOC with her fall. Dr. [facility] of [facility] spoke to Dr. Tijerina of the orthopedic service here who recommended admission to the hospitalist service with formal consultation pending in the a.m. for ORIF. She was then admitted to the generalmedical floor for ongoing care for stay that is expected to extend beyond 2 midnights. [facility] Medical History Nocturia Urge incontinence Overactive bladder Former tobacco use Depression Hypertension Fall [facility] (closed head injury) Presence of stent in coronary artery (~12/22/21) Atherosclerotic heart disease of [place] coronary artery without angina pectoris ST elevation [...] mg chewable tablet 125 mg PO QD-BID [place] N abdominal 12/28/24 Unknown History (Mylanta Gas) [...] in AM. Give acetaminophen as needed for lcsa-ng-ybwqatvz (level 1-5/10) pain or fever. Give morphine [...] before. 4. CAD; with RCA stent at [facility] in [place] (2009) and subsequent inferior wall ST elevation OR s/p RCA stent with cardiogenic shock and [...] 75 minutes. Charges/Coding Visit Charges Inpatient E&M: 55728 Init Hosp L3 01/20/25 0654 Cosigner Signature (if applicable): CC: Dr. 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 CAD (coronary artery disease) chroni c September 27, 2024 10:37am Essential (primary) hypertension chr onic September 27, 2024 10:37am Hyperlipidemia chronic September 27, 2024 10:37am Non-rheumatic mitral regurgitation chronic September 27, 2024 10:37am Parkinsons disease chronic September 112024 10:37am [facility] Work Phone: 1(869) 383-702306-17-2025 Evaluation note* Diagnosis Onset Date Resolution Status [...] bladder acute Sept2024 12:46pm Urge incontinence acute Sept2024 12:46pm Essential (primary) hypertension chronic December 28, 2024 12:46pm Parkinsons disease chronic 2024 12:46pm [facility] Work Phone: 1(304) 686-492806-17-2025 [facility] [address] [place] [address] OFFICE VISIT Date of Service: 09/27/24 MR#: [id number] Acct: [id number] Name: MONISHA COHN Rep #: [id number] : 1940 Provider: Dr. 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 [place] Required: No Accompanied by: Is patient in [...] past year?: Yes (no major injuries; 2) [facility] Medical History Atherosclerotic heart disease of [place] coronary artery without angina pectoris Bladder spasms [...] Supplemental Info Supplemental Information ECHOCARDIOGRAM 12/23/21 @ [facility] Left ventricular ejection fraction is [...] tricuspid valve regurgitation Cath Intervention 12/20/09 @ [facility] Percutaneous coronary angioplasty and stenting of the right coronary artery withtwo drug eluting stents 2.5x30mm and 2.5x12mm Cath Intervention 12/22/21 @ [facility] Percutaneous coronary intervention in the right coronary artery with a 2.75x22 mm MIKKI drug elutingstent Assessment and Plan Assessment and Plan (1) CAD (coronary artery disease): Status: Chronic Plan: History of inferior OR. History of drug-eluting stents placement to the [...] Date (if applicable) CC: Tressa Rosales ~ [facility]06-17-2025 Progress note Author Danielle Vernon [facility] Note Date/Time September 27, 2024 11:5 1am [facility] [place] [id number] [facility] [place] [address] OFFICE VISIT Date of Service: 09/27/24 MR#: [id number] Acct: [id number] Name: MONISHA COHN Rep #: [id number] : 1940 Provider: Dr. 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 [place] Required: No Accompanied by: Is patient in [...] past year?: Yes (no major injuries; 2) [facility] Medical History Atherosclerotic heart disease of [place] coronary artery without angina pectoris Bladder spasms [...] Supplemental Info Supplemental Information ECHOCARDIOGRAM 12/23/21 @ [facility] Left ventricular ejection fraction is [...] tricuspid valve regurgitation Cath Intervention 12/20/09 @ [facility] Percutaneous coronary angioplasty and stenting of the right coronary artery withtwo drug eluting stents 2.5x30mm and 2.5x12mm Cath Intervention 12/22/21 @ [facility] Percutaneous coronary intervention in the right coronary artery with a 2.75x22 mm MIKKI drug eluting stent Assessment and Plan Assessment and Plan (1) CAD (coronary artery disease): Status: Chronic Plan: History of inferior OR. 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 [facility] History of Present illness Narrative* Armen Madison MD - 07/29/2024 3:00 PM EDT [facility] [place] [facility] New Patient Visit Note Consultation [...] which included preparing to see the patient, tjxq-lq-qknw patient care, completing clinical documentation, performing a medically appropriate examination, counseling and educating the patient/family/caregiver, and ordering medications, tests,or procedures. Armen Madison MD Neuromuscular Medicine (NM) Staff [facility], [facility] [place] documented in this encounterC[facility]04-18-2025 NoteHNO ID: [id number] Author: ARMEN MADISON MD Service: ? Author Type: Physician Type: Progress Notes Filed: 07/29/2024 15:33 Note Text: [facility] New Patient Visit Note Consultation [...] will be communicated to the patient via telephone/Audemathart. Patient to call office if not contacted after expected testing turnaround time. I spent a total of 34 minutes on the date of the service which included prepari (more content not included)...[facility]03-18-2025 Instructions* Patient Instructions* Em Flynn APRN.CNP [...] or you can send a message through [employer]. You can also now schedule and select appointments through [employer]. Em Flynn APRN.RUPALI documented in this encounterC[facility]03-18-2025 History of Present illness Narrative* Em Flynn APRN.ERCO MACHINE OPERATOR - 06/28/2024 8:00 AM EDT [facility] - FOLLOW UP EVALUATION The patient consented to the use of ambient Fashfix software for draft documentation of the visit consistent with [facility] s Notice of Privacy Practices. Alexandra Arreguin APRN.ERCO MACHINE OPERATOR [address] [address] Dear Alexandra Arreguin APRN.RUPALI: I had the pleasure of seeing Ms. [...] directives (living will and durable power of admitted attorneys for healthcare): By Email: Send your document(s) to as an attachment in either PDF, TIFF, or JPEG format. By Mail: [facility] Information Management, Ab7 Advance Directive Processing [address] [place], [place] [address] By In person at any [facility] location Please note: You can use the address or fax number regardless of which [facility] you utilize, and we will make [...] to being in heaven due to her Pentecostalism mark, which some people misinterpret as depression. [...] c) the amplitude decrements startingafter the 1st hpqg-uyx-vdaio sequence. Hand Movements Left 2-Mild. a) 3 [...] or around: 12/29/24 Level of service : 89136 (40-68 min). Time spent 59 min on the day of service, which included preparing to see the patient, isml-ix-avvi patient care, completing clinical documentation, obtaining and/or reviewing separately obtained history, performing a medically appropriate examination, counseling and educating the patient/family/caregiver, and ordering medications, tests, or procedures. Em Flynn APRN.RUPALI documented in this encounterCleveland Clinic [facility]03-18-2025 NoteHNO ID: [id number] Author: EM FLYNN APRN.CNP Service: ? Author Type: Nurse Practitioner Type: Progress Notes Filed: 06/28/2024 23:22 Note Text: [facility] - FOLLOW UP EVALUATION The patient consented to the use of ambient Fashfix software for draft documentation of the visit consistent with [facility]?s Notice of Privacy Practices. Alexandra Arreguin APRN.CNP [address] [address] Deacarla Arreguin APRN.ERCO MACHINE OPERATOR: I had the pleasure of seeing [...] directives (living will and durable power of admitted attorneys for healthcare): By Email: Send your document(s) to as an attachment in either PDF, TIFF, or JPEG format. By Mail: [facility] Information Management, Ab7 Advance Directive Processing [address] [place], [place] [address] By In person at any [facility] location Please note: You can use the address or fax number regardless of which [facility] you utilize, and we will make [...] past who are n (more content not included)...[facility] 06-03-2024 Nuclear medicine Diagnostic study note [facility] Imaging Services [address] [place] [address] Hepatobilliary Img w/Pharm Int MR#: [id number] Acct: [id number] Name: MONISHA COHN Rep #: [id number] : 1940 F 84 From: Alejandro Tomlin MD PCP: Tressa Rosales Status: REG CLI Study:Hepatobilliary Img w/Pharm Int Date of Exam: 06/03/24 Exam# [id number] Ordering Dr: Deanna Lujan NP RESEARCH AND DEVELOPMENT ENGINEER-C PROCEDURE: HEPATOBILLIARY IMG W/PHARM INT REASON FOR [...] SCAN AND GALLBLADDER EJECTION FRACTION. Reading Location: [place] [address] CC: Didi VAZQUEZ NP-Mariajose Lujan; Tressa Rosales ~ Yard Supervisor [employer] G[employer]: Signed [facility]12-04-2024 Evaluation note* Diagnosis Onset Date Resolution Status Admit Date Argyria chronic March 16, 2024 8:48am CAD (coronary artery disease) chroni c March 16, 2024 8:48am Essential (primary) hypertension chronic March 16 8:48am Hyperlipidemia chronic March 162023 8:48am Non-rheumatic mitral regurgitation chronic March 16 8:48am Parkinsons disease chronic Dece 2023 8:48am [facility] Work Phone: [phone] 878-452409-19-2024 Instructions* Patient Instructions* Em Flynn APRN.ERCO MACHINE OPERATOR - 12/31/2023 9:49 AM EDT It [...] directives (living will and durable power of admitted attorneys for healthcare): By Email: Send your document(s) to as an attachment in either PDF, TIFF, or JPEG format. By Mail: [facility] Information Management, Ab7 Advance Directive Processing [address] [place], [place] [address] By In person at any [facility] location Please note: You can use the address or fax number regardless of which [facility] you utilize, and we will make sure it is filed appropriately. Movement Disorders Medication Schedule: Medications 8AM 12PM 4PM 8PM Sinemet 25/100 2 1.5 1.5 1.5 Return at or around: 03/31/24 If there are any concerns before your next visit, please call or you can send a message through [employer]. You can also now schedule and select appointments through [employer]. Em Flynn APRN.RUPALI documented in this encounterC[facility] Clinic [facility]09-19-2024 History of Present illness Narrative* Em Flynn APRN.RUPALI - 12/31/2023 9:00 AM EDT [facility] - FOLLOW UP EVALUATION Alexandra Arreguin APRN.CNP [address] [facility] [address] [facility] [address] Dear Alexandra Arreguin APRN.CNP: I had the [...] Double vision: Please follow up with your soa engineer as scheduled Interested in clinical research? Not [...] other sensations: She is seen by an implementation specialist for her hip. Speech/Swallowing Speech problems: [...] c) the amplitude decrements startingafter the 1st irsz-lab-kejyf sequence. (She has a trigger finger) Hand [...] directives (living will and durable power of admitted attorneys for healthcare): By Email: Send your document(s) to as an attachment in either PDF, TIFF, or JPEG format. By Mail: [facility] Information Management, Ab7 Advance Directive Processing [address] [place], [place] [address] By In person at any [facility] location Please note: You can use the address or fax number regardless of which [facility] you utilize, and we will make sure it is filed appropriately. Updated Movement Disorders Medication Schedule: Medications 8AM 12PM 4PM 8PM Sinemet 25/100 2 1.5 1.5 1.5 Return at or around: 03/31/24 Level of service : 72367 ( 30-39 min). Time spent 39 min on the day of service, which included preparing to see the patient, pbcr-qy-wwxo patient care, completing clinical documentation, obtaining and/or reviewing separately obtained history, performing a medically appropriate examination, counseling and educating the patient/family/caregiver, and ordering medications, tests, or procedures. Em Flynn APRN.ERCO MACHINE OPERATOR documented in this encounterC[facility]08-09-2024 Note* Letter - Coordinator, Mammography - 11/20/2023 10:34 AM EDT November 20, 2023 PID: [id number] Monisha Keena Suki [address] [place] [address] Dear Ms. Cohn, We are pleased to [...] report will be kept on file at [facility] as part of your permanent medical record and are available for your continuing care. Thank you for allowing us to help in meeting your health care needs. Sincerely, Dr. George Interpreting Radiologist [facility] (Normal over 40) [facility]08-09-2024 Note* Letter - Coordinator, Mammography - 11/20/2023 10:34 AM EDT November 20, 2023 PID: [id number] Monisha Cohn [address] [place] [address] Dear Ms. Songtke, We are pleased to inform you that [...] report will be kept on file at [facility] as part of your permanent medical record and are available for your continuing care. Thank you for allowing us to help in meeting your health care needs. Sincerely, Dr. George Interpreting Radiologist [facility] (Normal over 40) [facility]08-09-2024 Miscellaneous Notes* Letter - Coordinator, Mammography - 11/20/2023 10:34 AM EDT November 20, 2023 PID: [id number] Monisha Brink [address] [place] [address] Dear Jorgito Cohn, We are pleased to [...] report will be kept on file at [facility] as part of your permanent medical record and are available for your continuing care. Thank you for allowing us to help in meeting your health care needs. Sincerely, Dr. George Interpreting Radiologist [facility] (Normal over 40) * Letter - Shan Mammography - 11/20/2023 10:34 AM EDT November 20, 2023 PID: [id number] Monisha Brink [address]uki [address] [place] [address] Dear Jorgito Cohn, We are pleased to [...] report will be kept on file at [facility] as part of your permanent medical record and are available for your continuing care. Thank you for allowing us to help in meeting your health care needs. Sincerely, Dr. George Interpreting Radiologist [facility] (Normal over 40) documented in this encounterC[facility] Clinic [facility]08-09-2024 History of Present illness Narrative* Chitra [...] PATIENT PRESENTS WITH AN IMPLANTABLE OR ATTACHED NUCLEAR WASTE PROCESS OPERATOR: No RADIOLOGY DEPARTMENT: Mammography PERIPHERAL IV DATA: Not applicable SIGNED BY: Valentin Manzanares November 20, 2023 9:23 AM documented in this encounterC[facility] Clinic [facility]07-10-2024 Telephone encounter Note * Telephone Encounter - Rosie Cruz RN - 10/21/2023 10:01 AM EDT Received voicemail 10-20-23 at 12:28 PM. Nh this is Rissa at [facility]. Calling in regards to Monisha Cohn. 42. She gotan order from the orthopedic to do therapy which they have started but they wanted to know what wastorn and I believe Dr. Sheehan was the one who did the MRI, or read the MRI. If someone could fax us over the notes they would appreciate it. The fax number is [phone]. If you have any questions you can call me back at [phone]. Thank you." Last office visit note with Stephan Sheehan PA-C & imaging report faxed to [facility] PT department. [facility]07-10-2024 Miscellaneous Notes* Telephone Encounter - Rosie Cruz RN - 10/21/2023 10:01 AM EDT Received voicemail 10-20-23 at 12:28 PM. Hi this is Rissa at [facility]. Calling in regards to Monisha Cohn. 42. She gotan order from the orthopedic to do therapy which they have started but they wanted to know what wastorn and I believe Dr. Sheehan was the one who did the MRI, or read the MRI. If someone could fax us over the notes they would appreciate it. The fax number is [phone]. If you have any questions you can call me back at [phone]. Thank you." Last office visit note with Stephan Sheehan PA-C & imaging report faxed to [facility] PT department. documented in this encounterC[facility]07-05-2024 Telephone encounter Note * Telephone Encounter - Karolina Sanders RN - 10/16/2023 2:31 PM EDT Called back number and spoke with therapist. Told her Yara's note "Range of motion and rotator cuffstrengthening ThanksClaudia PA-C " [facility] Work Phone: [phone] 415-541707-05-2024 Miscellaneous Notes* Telephone Encounter - Karolina Sanders RN - 10/16/2023 2:31 PM EDT Called back number and spoke with therapist. Told her Yara's note "Range of motion and rotator cuffstrengthening ThanksClaudia PA-C " * Telephone Encounter - Edwina Flanagan - 10/16/2023 10:02 AM EDT Patient is staying at a facility and is going physical therapy there. They were inquiring about what specific program needs to be done for the patient, please call facility at [phone], they alsoasked if we could send any office visit notes. documented in this encounterC[facility]07-05-2024 Telephone encounter Note * Telephone Encounter - Edwina Flanagan - 10/16/2023 10:02 AM EDT Patient is staying at a facility and is going physical therapy there. They were inquiring about what specific program needs to be done for the patient, please call facility at [phone], they alsoasked if we could send any office visit notes. [facility]06-21-[facility] History of Present illness Narrative* Yury Jasso MD - 10/02/2023 8:54 AM EDTAssociated Order(s): Large Joint Arthro/Inj: L shoulder joint Post-Procedure Diagnose(s): Acute pain of left shoulder Images from the original note were not included. ORTHOPAEDIC SHOULDER & ELBOW SERVICE HISTORY & PHYSICAL EXAM REFERRING PROVIDER: Stephan Sheehan [address] [place] [address] CHIEF COMPLAINT: left shoulder pain PAIN EVALUATION 10/02/2023 0852 Pain Location: Shoulder-Left Description: Radiating;Aching;Sharp radiates to elbow, also to wrist Frequency: Continuous Intervention/Comfort measure: Heat;Medication;Reposition;Relaxation;Exercise tylenol, tramadol Comments: [facility] Monisha Cohn is a 83 year [...] negative Drop arm test: negative Biceps/bambi Signs Deerbrook's test: positive Michael deformity: negative Speed's test: [...] REFERRING PHYSICIAN: The patient was referred to or for consultation by the following physician. This consultation note will be sent to the following physician by either mail or electronic medical record. Stephan Sheehan [address] [place] [address] Yury Jasso MD Shoulder & Elbow Surgeon Department of Orthopaedic Surgery [facility] documented in this encounterCleveland Clinic [facility]06-18-[facility]24 History of Present illness Narrative* Kelly [...] PATIENT PRESENTS WITH AN IMPLANTABLE OR ATTACHED NUCLEAR WASTE PROCESS OPERATOR: No RADIOLOGY DEPARTMENT: General X-ray: Exam(s) Completed: Upper Extremity X- Ray(s): Shoulder, TRUE AP/ AXILLARY / SUPRA OUTLET left PERIPHERAL IV DATA: Not applicable SIGNED BY: Valentin Siddiqui September 29, 2023 10:18 AM documented in this encounterCleveland Clinic Hillcrest Hospital06-18-2024 NoteHNO ID: [id number] Author: KELLY STEWART Tech Service: Radiology Author Type: Train Braker Type: Progress Notes Filed: 09/29/2023 10:18 Note [...] PATIENT PRESENTS WITH AN IMPLANTABLE OR ATTACHED NUCLEAR WASTE PROCESS OPERATOR: No RADIOLOGY DEPARTMENT: General X-ray: Exam(s) Completed: Upper Extremity X-Ray(s): Shoulder, TRUE AP / AXILLARY / SUPRA OUTLET left PERIPHERAL IV DATA: Not applicable SIGNED BY: Valentin Siddiqui September 29, 2023 10:18 AMPromed[facility] Memorial [id number] Instructions* Patient Instructions* Em Flynn APRN.ERCO MACHINE OPERATOR - 09/29/2023 9:38 AM EDT It [...] Double vision: Please follow up with your soa engineer as scheduled Interested in clinical research? Not currently Movement Disorders Medication Schedule: Medications 8AM 12PM 4PM 8PM Sinemet 25/100 2 1.5 1.5 1.5 Return at or around: 12/30/23 If there are any concerns before your next visit, please call or you can send a message through [employer]. You can also now schedule and select appointments through [employer]. Em Flynn APRN.RUPALI documented in this encounterCleveland Clinic Hill[facility]06-18-2024 History of Present illness Narrative* Em Flynn APRN.CNP - 09/29/2023 9:00 AM EDT [facility] - FOLLOW UP EVALUATION Alexandra Arreguin APRN.CNP [address] [address] Dear Alexandra Arreguin APRN.CNP: I had the [...] 10points or more) please discuss with your plush brusher. Hallucinations: I am hoping that the reduction in Sinemet helps these, but if it does not and they are bothering you, please let me know. Dysphagia (difficulty swallowing): I am ordering speech therapy for this and your quiet speech Double vision: Please follow up with your soa engineer Left arm pain/numbness and tingling: I have [...] out of the facility and move back [facility]. Impulse control disorder: No Palliative Concerns: Caregiver burden: Spiritual concerns: No Advanced directives on file: No I offered a SW consult but she wants to wait until she moves back to [place]. Palliative services: Therapy and Exercise: Last PT [...] the amplitude decrements starting after the 1st klfz-qmw-tgdzy sequence. Arm Movements Right 1-Slight. a) the [...] Double vision: Please follow up with your soa engineer as scheduled Interested in clinical research? Not currently Updated Movement Disorders Medication Schedule: Medications 8AM 12PM 4PM 8PM Sinemet 25/100 2 1.5 1.5 1.5 Return at or around: 12/30/23 Level of service : 36950 ( 30-39 min). Time spent 37 min on the day of service, which included preparing to see the patient, rroh-ov-pchv patient care, completing clinical documentation, obtaining and/or reviewing separately obtained history, performing a medically appropriate examination, counseling and educating the patient/family/caregiver, and ordering medications, tests, or procedures. Em Flynn APRN.ERCO MACHINE OPERATOR documented in this encounterCleveland Clinic Hillcrest Hospital06-12-2024 NoteIMPRESSION: INCOMPLETE: NEEDS ADDITIONAL IMAGING EVALUATION Probable benign nodule retroareolar region LEFT breast found using tomosynthesis today. Benign-appearing asymmetric glandular tissue upper outer aspect LEFT breast. Ultrasound correlation will be performed. LIMITED ULTRASOUND OF LEFT BREAST: 09/23/2023 RESULT: Comparison is made to exam dated: 08/13/2023 mammogram - [facility]. Ultrasound of was performed. Imaging [...] schedule is recommended. Ajay Bullock M.D. FACR, FSWilliamson ARH Hospital/gi:09/23/2023 10:55:35 Multiple national specialty organizations have released breast cancer screening guidelines for women at average risk for developing breast cancer - guidelines that are based on both evidence and opinion, yet differ on when to start and how often to screen for breast cancer. With representation from Breast Imaging, Internal Medicine, Women's Health, Family Medicine, and Medical/Surgical Oncology, the [facility] has carefully reviewed the data and [...] their providers when to stop screening mammograms. Head Of Sales(s): RT Yumiko(R)(), [facility]; RT Nicole(R), [facility] OVERALL STUDY BIRADS: 2 Benign finding Yard Supervisor Cotton Gin: Gi Transcribe Date/Time: Sep 23 2023 9:21A Dictated by : AJAY BULLOCK MD This examination was interpreted and the report reviewed and electronically signed by: AJAY BULLOCK MD on Sep 23 2023 10:55AM [facility] [id number] History of Present illness Narrative* Tiago Mcnamara [...] PATIENT PRESENTS WITH AN IMPLANTABLE OR ATTACHED NUCLEAR WASTE PROCESS OPERATOR: No RADIOLOGY DEPARTMENT: Mammography PERIPHERAL IV DATA: [...] PATIENT PRESENTS WITH AN IMPLANTABLE OR ATTACHED NUCLEAR WASTE PROCESS OPERATOR: No RADIOLOGY DEPARTMENT: Ultrasound PERIPHERAL IV DATA: Not applicable SIGNED BY: Virginie Rios RDMS September 23, 2023 10:39 AM documented in this encounterCleveland Clinic Hillcre[facility] Hospital06-12-2024 NoteHNO ID: [id number] Author: TIAGO MCNAMARA CT Service: Radiology Author [...] PATIENT PRESENTS WITH AN IMPLANTABLE OR ATTACHED NUCLEAR WASTE PROCESS OPERATOR: No RADIOLOGY DEPARTMENT: Mammography PERIPHERAL IV DATA: Not applicable SIGNED BY: RT Yumiko September 23, 2023 9:42 [facility] [id number] NoteHNO ID: [id number] Author: VIRGINIE RIOS RDMS Service: Radiology Author Type: Scrum Project Manager Type: Progress Notes Filed: 09/23/2023 10:39 Note [...] PATIENT PRESENTS WITH AN IMPLANTABLE OR ATTACHED NUCLEAR WASTE PROCESS OPERATOR: No RADIOLOGY DEPARTMENT: Ultrasound PERIPHERAL IV DATA: Not applicable SIGNED BY: Virginie Rios RDMS September 23, 2023 10:39 [facility] [id number] Telephone encounter Note* Telephone Encounter - Mary Ann Villalobos - 09/02/2023 1:18 PM EDT Received call from Rissa at [facility]. Patient would like to complete Physical Therapy on-site at the facility. Order for PT faxed to their facility via [employer]. Mary Ann Villalobos [facility]05-22-2024 Miscellaneous Notes* Telephone Encounter - Mary Ann Villalobos - 09/02/2023 1:18 PM EDT Received call from Rissa at [facility]. Patient would like to complete Physical Therapy on-site at the facility. Order for PT faxed to their facility via [employer]. Mary Ann Villalobos documented in this encounterCleveland Clinic Hill[facility] Hospital05-16-2024 History of Present illness Narrative* Stephan Sheehan PA-C - 08/27/2023 1:40 PM EDT Images from the original note were not included. [facility] [address] [place] [address] 08/27/2023 ASSESSMENT AND PLAN: Assessment : Encounter [...] today with this patient visit. This includes evlo-jd-tppv time, review of chart records regarding conservative care history, spine- pertinent imaging, and communication/care coordination with referring provider, problem-specific history-taking and counseling/education regarding treatment options. cc: Em Flynn [address] [facility] [address] Results of consultation to be transmitted via electronic medical record for those providers who practice within [facility] or with access to [employer] via [employer], or via letter. ######################################################################## [...] L: 5/5 Triceps R: 5/5 L: 4/5 Transition Mgr R: 5/5 L: 5/5 Interossei R: +4/5 [...] STUDIES: See discussion above documented in this encounterCleveland Clinic Hillcrest Hospital05-03-2024 Note* Letter - Coordinator, Mammography - 08/14/2023 11:00 AM EDT August 14, 2023 PID: [id number] Monisha Cohn [address] [place] [address] Dear Ms. Cohn, Your recent breast imaging [...] so).Additional Imaging cannot be self scheduled in [facility]. If you DO NOT have a healthcare provider (ie you did not have an order/prescription for your screening mammogram): Please call to schedule an appointment for your additional imaging (if you have not already done so). Additonal Imaging cannot be self scheduled in [place] [facility]. This exam cannot be self scheduled in [place]. You must have an order/prescription from your physician when calling to schedule your appointment. If your order/prescription is not electronic, you must bring the hard copy with you on the day of your exam Your imaging studies and reports are kept on file at [facility] as part of your permanent medical record, and are available for your continuing care. Thank you for allowing us to help in meeting your health care needs. Sincerely, Dr. Castellanos Interpreting Radiologist [facility] (Additional imaging) [facility]05-03-2024 Miscellaneous Notes* Letter - Coordinator, Mammography - 08/14/2023 11:00 AM EDT August 14, 2023 PID: [id number] Monisha Cohn [address] [place] [address] Dear Ms. Cohn, Your recent breast imaging [...] so).Additional Imaging cannot be self scheduled in [place]. If you DO NOT have a healthcare provider (ie you did not have an order/prescription for your screening mammogram): Please call to schedule an appointment for your additional imaging (if you have not already done so). Additonal Imaging cannot be self scheduled in [facility]. This exam cannot be self scheduled in [facility]. You must have an order/prescription from your physician when calling to schedule your appointment. If your order/prescription is not electronic, you must bring the hard copy with you on the day of your exam Your imaging studies and reports are kept on file at [facility] as part of your permanent medical record, and are available for your continuing care. Thank you for allowing us to help in meeting your health care needs. Sincerely, Dr. Castellanos Interpreting Radiologist [facility] (Additional imaging) documented in this encounterCleveland Clinic Hill[facility]05-02-2024 History of Present illness Narrative* Tiago [...] PATIENT PRESENTS WITH AN IMPLANTABLE OR ATTACHED NUCLEAR WASTE PROCESS OPERATOR: No RADIOLOGY DEPARTMENT: Bone Density and Mammography PERIPHERAL IV DATA: Not applicable SIGNED BY: ANCA López August 13, 2023 2:15 PM documented in this encounterCleveland Clinic Hillcre[facility] Hospital05-02-2024 NoteHNO ID: [id number] Author: TIAGO MCNAMARA CT Service: Radiology Author [...] PATIENT PRESENTS WITH AN IMPLANTABLE OR ATTACHED NUCLEAR WASTE PROCESS OPERATOR: No RADIOLOGY DEPARTMENT: Bone Density and Mammography PERIPHERAL IV DATA: Not applicable SIGNED BY: ANCA López August 13, 2023 2:15 PMPromedica Memorial [id number] Telephone encounter Note* Telephone Encounter - Em [...] to arrange this with Rissa at the [facility] as this is the individual who would drive her to her appointments. STONE Lockhart [facility]04-22-2024 Miscellaneous Notes* Telephone Encounter - Em [...] to arrange this with Rissa at the [facility] as this is the individual who would drive her to her appointments. STONE Lockhart documented in this encounterCleveland Clinic Hillcrest Hospital03-25-2024 Instructions* Patient Instructions* Em Flynn APRN.CNP [...] 10points or more) please discuss with your plush brusher. Date/Time BP Sitting Heart Rate Sitting BP Standing Heart Rate Standing Hallucinations: I am hoping that the reduction in Sinemet helps these, but if it does not and they are bothering you, please let me know. Dysphagia (difficulty swallowing): I am ordering speech therapy for this and your quiet speech Vision changes: Please follow up with your soa engineer. Left arm pain/numbness and tingling: I have ordered a neck MRI. Movement Disorders Medication Schedule: Medications 8AM 12PM 4PM 8PM Sinemet 25/100 2 1.5 1.5 1.5 Return in about 3 months (around 10/06/2023). If there are any concerns before your next visit, please call or you can send a message through [employer]. You can also now schedule and select appointments through [employer]. Em Flynn APRN.RUPALI documented in this encounterCleveland Clinic Hill[facility] Hospital03-25-2024 History of Present illness Narrative* Em Flynn APRN.CNP - 07/06/2023 8:22 AM EDT [facility] - FOLLOW UP EVALUATION Alexandra Arreguin APRN.ERCO MACHINE OPERATOR [address] [place] [address] [id number] Dear Alexandra Arreguin APRN.CNP: I had the [...] points or more) please discuss with your plush brusher. Date/Time BP Sitting Heart Rate Sitting BP [...] They still want to move back to [place]. She was discharged from physical therapy. She [...] to wait until she moves back to [place]. Palliative services: Therapy and Exercise: Last PT [...] of [facility] 0845 Time of Last Medication 1999 Last Medication Taken Sinemet 25/100, 1.5 tab [...] the amplitude decrements starting after the 1st dmkl-gnu-wanqf sequence. Arm Movements Right 1-Slight. a) the [...] 10points or more) please discuss with your plush brusher. Date/Time BP Sitting Heart Rate Sitting BP Standing Heart Rate Standing Hallucinations: I am hoping that the reduction in Sinemet helps these, but if it does not and they are bothering you, please let me know. Dysphagia (difficulty swallowing): I am ordering speech therapy for this and your quiet speech Vision changes: Please follow up with your soa engineer. Left arm pain/numbness and tingling: I have ordered a neck MRI. Updated Movement Disorders Medication Schedule: Medications 8AM 12PM 4PM 8PM Sinemet 25/100 2 1.5 1.5 1.5 Level of service : 13404 (40-54 min). Time spent 45 min on the day of service, which included preparing to see the patient, kosk-hz-ozhj patient care, completing clinical documentation, obtaining and/or reviewing separately obtained history, performing a medically appropriate examination, counseling and educating the patient/family/caregiver, and ordering medications, tests, or procedures. Em Flynn APRN.ERCO MACHINE OPERATOR documented in this encounterCleveland Clinic Hill[facility] Hospital01-19-2024 Discharge summary Author Law Gold [facility] May 01, 2023 4:21pm Note Date/Time May 01, 2023 1 :42pm [facility] Medical Records Department [address] [place] [address] Emergency Department Summary 05/01/23 MR#: [id number] Acct: [id number] Name: MONISHA COHN Rep #:[id number] : 1940 83 From: Law Longoria [...] any other injuries. Patient denies any lacerations. 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 Call [facility] ([phone]) or report to the closest Emergency Room. Call 911 if necessary. 05/01/23 1621 <Electronically signed by Law Gold DO> Cosigner Signature (if applicable): CC: RESEARCH AND DEVELOPMENT ENGINEER-C Alexandra Arreguin ~ Signed [facility] Work Phone: 1(354) 984-528610-27-2023 Discharge summary Author Darline Lundy [facility] February 06, 2023 2:09pm Note Date/Time February 06, 2023 1 2:33pm [facility] Medical Records Department [address] [place] [address] Transfer to [facility] MR#: [id number] Acct: [id number] Name: MONISHA COHN Rep #:[id number] : 1940 82 From: Darline Lundy [...] PRIOR TO HIS/HER TRANSFER TO [facility]. 02/06/23 1233<Electronically signed by Darline Lundy MD> [...] skin hue, Obesity who presents to the [facility] ED on 02/01/23 with history of mechanical [...] Active Staff] - 02/18/23 Alexandra Arreguin NP, RESEARCH AND DEVELOPMENT ENGINEER-C [Primary Care Provider] - Disposition Disposition (needs filled in before D/C Order can be placed): Long-Term Facility (1) Closed hip fracture Qualifiers: Encounter type: initial encounter Laterality: left Qualified Code(s): S72.002A - Fracture of unspecified part of neck of left femur, initial encounterfor closed fracture 02/06/23 1233 <Electronically signed by Darline Lundy MD> Cosigner Signature (if applicable): CC: RESEARCH AND DEVELOPMENT ENGINEER-C Alexandra Arreguin; Dr. Jasmin Steele MD; Dr. Davian Grier DO ~ ADDENDUM by Dr. Darline Lundy MD on 02/06/23 at 1409 Addendum COREG STOPPED D/T BP STILL BEING ON LOW SIDE, PT ASYMPTOMATIC HOWEVER, NO OTHER CHANGES MADE 02/06/23 1409 <Electronically signed by Darline Lundy MD> cc: JACQUI Arreguin; Dr. Jasmin Steele MD; Dr. Davian Grier DO ~* Signed [facility] Work Phone: 1(803) 833-891310-27-2023 Discharge summary Author Darline Lundy [facility] February 06, 2023 2:09pm Note Date/Time February 06, 2023 1 2:35pm [facility] Medical Records Department [address] [place] [address] Discharge Summary 02/06/23 1234 MR#: [id number] Acct: [id number] Name: MONISHA COHN Rep #:[id number] : 1940 82 From: Darline Lundy MD PCP: JACQUI Ann Status:ADM IN Location: [place] [address]-1 Providers Date of Admission: 02/01/23 Date of [...] skin hue, Obesity who presents to the [facility] ED on 02/01/23 with history of mechanical [...] skin hue, Obesity who presents to the [facility] ED on 02/01/23 with history of mechanical [...] % (Auto) 55.6, Lymph % (Auto) 30.5, Hendricks % (Auto) 10.2 H, Eos % (Auto) [...] Active Staff] - 02/18/23 Alexandra Arreguin NP, RESEARCH AND DEVELOPMENT ENGINEER-C [Primary Care Provider] - Disposition Disposition (needs filled in before D/C Order can be placed): Long-Term Facility Charges/Coding Visit Charges Inpatient E&M: 91470 Disch Hosp >30min 02/06/23 1235 <Electronically signed [...] Arreguin; Dr. Darline Lundy MD ~* Signed [facility] Work Phone: 1(862) 935-408910-26-2023 Progress note Author Darline Lundy [facility] February 05, 2023 5:07pm Note Date/Time February 05, 2023 4 :55[facility] Medical Records Department [address] [place] [address] Progress Note - Hospitalist 02/05/23 1651 MR#: [id number] Acct: [id number] Name: MONISHA COHN Rep #:[id number] : 1940 82 From: Darline Lundy MD PCP: Alexandra Arreguin RESEARCH AND DEVELOPMENT ENGINEER-Mariajose Status:ADM IN [place] [facility] [id number] Reason for Visit Reason for Visit: Diagnoses [...] (Auto) 67.7, Lymph % (Auto) 18.8 L, Hendricks % (Auto) 11.3 H, Eos % (Auto) [...] documentation, 26minutes Charges/Coding Visit Charges Inpatient E&M: 02409 Subs Hosp L1 02/05/23 1707 <Electronically signed by Darline Lundy MD> Cosigner Signature (if applicable): CC: ~ Signed [facility] Work Phone: 1(950) 531-142510-25-2023 Progress note Author Darline Lundy [facility] February 04, 2023 8:56am Note Date/Time February 04, 2023 7 :12am [facility] Medical Records Department [address] [place] [address] Progress Note - Hospitalist 02/04/23 0710 MR#: [id number] Acct: [id number] Name: MONISHA COHN Rep #:[id number] : 1940 82 From: Darline Lundy MD PCP: JACQUI Ann Status:ADM IN Location: [place]3 WV100-6 Reason for Visit Reason for Visit: Diagnoses [...] 70.8 H, Lymph % (Auto) 15.0 L, Hendricks % (Auto) 12.4 H, Eos % (Auto) [...] and DVT prophylaxis in addition SCDs and EBLEN kallie -02/04: Hemoglobin stable status posttransfusion, resume aspirin [...] documentation, 40minutes Charges/Coding Visit Charges Inpatient E&M: 46978 Subs Hosp L2 02/04/23 0856 <Electronically signed by Darline Lundy MD> Cosigner Signature (if applicable): CC: ~ Signed [facility] Work Phone: 1(680) 309-196810-24-2023 Progress note Author Darline Lundy [facility] February 03, 2023 10:04am Note Date/Time February 03, 2023 7 :22am [facility] Medical Records Department [address] [place] [address] Progress Note - Hospitalist 02/03/23 0717 MR#: [id number] Acct: [id number] Name: MONISHA COHN Rep #:[id number] : 1940 82 From: Darline Lundy MD PCP: Alexandra Arreguin RESEARCH AND DEVELOPMENT ENGINEER-C Status:ADM IN Location: [place] [address]1 Reason for Visit Reason for Visit: Diagnoses [...] 71.1 H, Lymph % (Auto) 14.6 L, Hendricks % (Auto) 13.2 H, Eos % (Auto) [...] documentation, 40minutes Charges/Coding Visit Charges Inpatient E&M: 12675 Subs Hosp L2 02/03/23 1004 <Electronically signed by Darline Lundy MD> Cosigner Signature (if applicable): CC: ~ Signed [facility] Work Phone: 1(567) 148-540310-24-2023 Progress note Author Jaylon Boone [facility] February 03, 2023 7:05am Note Date/Time February 03, 2023 7 :05am [facility] Medical Records Department [address] [place] [address] Progress Note - Hospitalist 02/03/2304 MR#: [id number] Acct: [id number] Name: MONISHA COHN Rep #:[id number] : 1940 82 From: Jaylon Fontana PCP: JACQUI Ann Status:ADM IN Location: [place] [address] Hospitalist Note Since hemoglobin dropped from 9.1-5.6 after surgery. Most likely acute blood loss after surgery, postop anemia. Units PRBC type and crossmatch and transfuseslowly. Patient had a STEMI in December 2021. Aspirin hold. Plavix currentlydiscontinued but informed the attending and might resume when bleeding is stable. 02/03/23704 <Electronically signed by Jaylon Boone MD> Cosigner Signature (if applicable): CC: ~ Signed [facility] Work Phone: 1(660) 859-831910-24-2023 Progress note Author Davian Grier [facility] February 03, 2023 6:03am Note Date/Time February 03, 2023 6 :03am [facility] Medical Records Department [address] [facility] [place] [address] Progress Note - Orthopedic 02/03/23 0601 MR#: [id number] Acct: [id number] Name: MONISHA COHN Rep #:[id number] : 1940 82 From: Davian beasley DO PCP: JACQUI Ann Status:ADM IN Location: [place] [address] Subjective Subjective Patient seen and examined. Pain [...] % (Auto) 62.1, Lymph % (Auto) 25.2, Hendricks% (Auto) 11.7 H, Eos % (Auto) 0.3, [...] - DVT PPX -Multimodal with SCDs, BELEN arreguin, early mobilization, aspirin and Plavix -Dry sterile [...] Cosigner Signature (if applicable): CC: ~ Signed [facility] Work Phone: 1(111) 271-777110-24-2023 Discharge summary Author Law Gold [facility] February 03, 2023 12:29am Note Date/Time February 01, 2023 2 :21pm [facility] Medical Records Department [address] [place] [address] Emergency Department Summary 02/01/23 MR#: [id number] Acct: [id number] Name: SUKIMONISHA ARIEL Rep #:[id number] : 1940 82 From: Niko OSMAN PCP: JACQUI Ann Status:ADM IN Location: [place]3 RI901-4 [facility] <JACQUI Cano - Last Filed: 02/01/23 15:12> History of Present Illness Chief Complaint: Fall Narrative Narrative: Patient is a 82-year-old female with history of Parkinson disease, CAD, OR who presents to the emergency department after [...] does live with her and her daughter [facility] <JACQUI Cano - Last Filed: 02/01/23 15:12> [facility] Medical History Atherosclerotic heart disease of [place] coronary artery without angina pectoris Bladder spasms [...] Oxygen Delivery Method Room Air Room Air [facility] <Niko LorenzJACQUI - Last Filed: 02/01/23 15:12> [facility] Lab Data Labs: Laboratory Results - last 24 hr 02/01/23 14:05 WBC 4.8 RBC 3.93 L Hgb 10.8 L Hct 35.2 L MCV 89.6 MCH 27.5 MCHC 30.7 L RDW Std Deviation 41.8 RDW Coeff of Aleena 12.6 Plt Count 255 MPV 8.7 Immature Gran % (Auto) 0.200 Neut % (Auto) 60.2 Lymph % (Auto) 28.0 Hendricks % (Auto) 8.9 Eos % (Auto) 1.7 [...] 14:52 EDT Reading Location ID and State: 5858 / [employer] , Service support , Chest X-Ray 02/01/23 14:00 IMPRESSION: Normal x-ray examination of the chest. Electronically Signed: Chun Martinez MD at 14:53 EDT Reading Location ID and State: 2027 / [employer] , Service support , Femur X-Ray 02/01/23 14:00 IMPRESSION: Acute distracted fracture of the intertrochanteric left femur. Electronically Signed: Chun Martinez MD at 14:55 EDT Reading Location ID and State: 1407 / [employer] , Service support , Pelvis X-Ray 02/01/23 14:00 IMPRESSION: Acute distracted fracture of the intertrochanteric left femur. Electronically Signed: Chun Martinez MD at 14:54 EDT Reading Location ID and State: 1407 / [employer] , Service support , Elbow X-Ray 02/01/23 15:12 IMPRESSION: Normal x-ray examination of the elbow. Electronically Signed: Chun Martinez MD at 15:29 EDT Reading Location ID and State: [employer] / [employer] , Service support , EKG EKG shows a normal sinus rhythm: Attestation: I personally reviewed and interpreted this EKG as follows: Comments: Normal sinus rhythm, rate of 71 bpm, IL 150 ms, QRS duration 68 ms. No [...] Gold, DO - Last Filed: 02/01/23 15:58> [facility] Narrative Medical decision making narrative: I [...] % (Auto) 60.2 Lymph % (Auto) 28.0 Hendricks % (Auto) 8.9 Eos % (Auto) 1.7 [...] involutional changes of the brain. Electronically Signed: Chnu Martinez MD at 14:52 EDT Reading Location ID and State: [place] / [employer] , Service support , Chest X-Ray 02/01/23 14:00 IMPRESSION: Normal x-ray examination of the chest. Electronically Signed: Chun Martinez MD at 14:53 EDT Reading Location ID and State: [employer] , Service support , Femur X-Ray 02/01/23 14:00 IMPRESSION: Acute distracted fracture of the intertrochanteric left femur. Electronically Signed: Chun Martinez MD at 14:55 EDT Reading Location ID and State: [employer] , Service support , Pelvis X-Ray 02/01/23 14:00 IMPRESSION: Acute distracted fracture of the intertrochanteric left femur. Electronically Signed: Chun Martinez MD at 14:54 EDT Reading Location ID and State: [employer] , Service support , Elbow X-Ray 02/01/23 15:12 IMPRESSION: Normal x-ray examination of the elbow. Electronically Signed: Chun Martinez MD at 15:29 EDT Reading Location ID and State: [employer] , Service support , Discharge Plan [...] your Primary Care Provider. Call [facility] ([phone]) or report to the closest Emergency Room. Call 911 if necessary. 02/02/232110 <Electronically signed by Niko OSMAN> Cosigner Signature (if applicable): 02/03/2328 <Electronically signed by Law Gold DO> CC: RESEARCH AND DEVELOPMENT ENGINEER-C Alexandra Arreguin ~ Signed [facility] Work Phone: 1(519) 683-258610-23-2023 Procedure [facility] 02-02-2023 Progress note Author Darline Lundy [facility] February 02, 2023 10:59am Note Date/Time February 02, 2023 7 :44am [facility] Medical Records Department [address] [place] [address] Progress Note - Hospitalist 02/02/23 0739 MR#: [id number] Acct: [id number] Name: MONISHA COHN Rep #:[id number] 1 : 1940 82 From: Darline Lundy MD PCP: JACQUI Ann Status:ADM IN [place] [facility] [place] Reason for Visit Reason for Visit: Diagnoses [...] % (Auto) 60.2, Lymph % (Auto) 28.0, Hendricks% (Auto) 8.9, Eos % (Auto) 1.7, Baso [...] % (Auto) 62.1, Lymph % (Auto) 25.2, Hendricks% (Auto) 11.7 H, Eos % (Auto) 0.3, [...] 14:52 EDT Reading Location ID and State: [employer] , Service support , Chest X-Ray 02/01/23 14:00 IMPRESSION: Normal x-ray examination of the chest. Electronically Signed: Chun Martinez MD at 14:53 EDT Reading Location ID and State: [place] / [employer] , Service support , Femur X-Ray 02/01/23 14:00 IMPRESSION: Acute distracted fracture of the intertrochanteric left femur. Electronically Signed: Chun Martinez MD at 14:55 EDT Reading Location ID and State: [place] / [employer] , Service support , Pelvis X-Ray [...] documentation, 36minutes Charges/Coding Visit Charges Inpatient E&M: 16511 Subs Hosp L2 02/02/23 1059 <Electronically signed by Darline Lundy MD> Cosigner Signature (if applicable): CC: ~ Signed [facility] Work Phone: 1(217) 948-652010-22-2023 Progress note Author Jaylon Boone [facility] February 01, 2023 9:42pm Note Date/Time February 01, 2023 9 :42pm [facility] Medical Records Department [address] [place] [address] Progress Note - Hospitalist 02/01/232141 MR#: [id number] Acct: [id number] Name: MONISHA COHN Rep #:[id number] 1 : 1940 82 From: Jaylon Fontana PCP: SYEDA AnnC Status:ADM IN Location: [place] [address] Hospitalist Note As per the nurse, patient changed her mind from DNRCC arrest to full code. She wants to be full code. CODE STATUS changed to full code. 02/01/232141 <Electronically signed by Jaylon Boone MD> Cosigner Signature (if applicable): CC: ~ Signed [facility] Work Phone: [phone] Consult note Author Davian Grier [facility] February 01, 2023 7:27pm Note Date/Time February 01, 2023 7 :27pm [facility] Medical Records Department [address] [place] [address] Consultation - Orthopedics 02/01/231921 MR#: [id number] Acct: [id number] Name: MONISHA COHN Rep #:[id number] 3 : 1940 82 From: Davian beasley DO PCP: Alexandra Arreguin NP-C Status:ADM IN Location: MS3 [id number] HPI Consult Data Date of Consult: 02/01/23 HPI Narrative Reason for Consultation: Left hip fracture HPI Narrative: MONISHA COHN, is a 82 F who presents to [facility] emergency department after a mechanical fall [...] in the past. Denies history of VTE. [facility] Medical History (Updated 02/01/23 @ 19:[address] Davian Grier, ) Atherosclerotic heart disease of [place] coronary artery without angina pectoris Bladder spasms [...] % (Auto) 60.2, Lymph % (Auto) 28.0, Hendricks% (Auto) 8.9, Eos % (Auto) 1.7, Baso [...] 14:52 EDT Reading Location ID and State: [place] / [employer] , Service support , Chest X-Ray 02/01/23 14:00 IMPRESSION: Normal x-ray examination of the chest. Electronically Signed: Chun Martinez MD at 14:53 EDT Reading Location ID and State: [place] / [employer] , Service support , Femur X-Ray 02/01/23 14:00 IMPRESSION: Acute distracted fracture of the intertrochanteric left femur. Electronically Signed: Chun Martinez MD at 14:55 EDT Reading Location ID and State: [place] / [employer] , Service support , Pelvis X-Ray [...] JACQUI Arreguin; Dr. Davian Grier DO~ Signed [facility] Work Phone: 1(918) 431-511010-22-2023 History and physical note Author Jasmin Steele [facility] February 01, 2023 4:28pm Note Date/Time February 01, 2023 3 :26pm [facility] Medical Records Department [address] [place], [place] [address] [place] [address] H&P Exam - Hospitalist 02/01/23 1526 MR#: [id number] Acct: [id number] Name: MONISHA COHN Rep #:[id number] 3 : 1940 82 From: Jasmin Steele MD PCP: Alexandra Arreguin, RESEARCH AND DEVELOPMENT ENGINEER-C Status:ADM IN [place] [facility] [place]083-[place] HPI - General General Date of Admission: 02/01/23 Date of Service: 02/01/23 Chief Complaint: Fall, L hip pain. HPI Narrative The patient is an 82 y/o F w/ PMHx: CAD s/p PCI, HTN, HLD, COPD, Parkinson's disease, Chronic urgency/bladder spasms following with Urology, Gout, Fibromyalgia, Hx usage "silver water" with chronically silver skin hue, Obesity who presents to the [facility] ED on 02/01/23 with history of mechanical [...] She notes she is able to tolerate [place] and per daughter Dilaudid low-dose. In the ED she was administered Zofran 4 mg IV x2 and morphine 4 mg IV x2 and did not have a significant reaction thus far but discussed and if any concerns arise or hives would administer medications as needed. [facility] Medical History (Updated 02/01/23 @ 16:[address] Jasmin Steele MD) Atherosclerotic heart disease of [place] coronary artery without angina pectoris Bladder spasms [...] % (Auto) 60.2, Lymph % (Auto) 28.0, Hendricks% (Auto) 8.9, Eos % (Auto) 1.7, Baso [...] 14:52 EDT Reading Location ID and State: [place] / [employer] , Service support , Chest X-Ray 02/01/23 14:00 IMPRESSION: Normal x-ray examination of the chest. Electronically Signed: Chun Martinez MD at 14:53 EDT Reading Location ID and State: [place] / [employer] , Service support , Femur X-Ray 02/01/23 14:00 IMPRESSION: Acute distracted fracture of the intertrochanteric left femur. Electronically Signed: Chun Martinez MD at 14:55 EDT Reading Location ID and State: [place] / [employer] , Service support , Pelvis X-Ray 02/01/23 14:00 IMPRESSION: Acute distracted fracture of the intertrochanteric left femur. Electronically Signed: Chun Martinez MD at 14:54 EDT Reading Location ID and State: [place] / [employer] , Service support , Assessment & Plan Assessment/Plan (1) Closed hip fracture: PLAN: Plan The patient is an 82 y/o F w/ PMHx: CAD s/p PCI, HTN, HLD, COPD, Parkinson's disease, Chronic urgency/bladder spasms following with Urology, Gout, Fibromyalgia, Hx usage "silver water" with chronically silver skin hue, Obesity who presents to the [facility] ED on 02/01/23 with history of mechanical [...] 16 minutes. Charges/Coding Visit Charges Inpatient E&M: 52580 Init Hosp L3 Procedures Hospitalists Procedures: 25327 Advncd Care Plan 30 Min 02/01/23 1628 <Electronically signed by Jasmin Steele MD> Cosigner Signature (if applicable): CC: JACQUI Arreguin; Dr. Jasmin Steele MD~ Signed [facility] Work Phone: [phone]) 865-720210-10-2023 Instructions* Patient Instructions* Em Flynn APRN.ERCO MACHINE OPERATOR - 01/20/2023 3:48 PM EDT It [...] points or more) please discuss with your plush brusher. Date/Time BP Sitting Heart Rate Sitting BP [...] or you can send a message through [employer]. You can also now schedule and select appointments through [employer]. Em Flynn APRN.RUPALI documented in [facility] History of Present illness Narrative* Em Flynn APRN.ERCO MACHINE OPERATOR - 01/20/2023 3:00 PM EDT [facility] - FOLLOW UP EVALUATION Alexandra Arreguin APRN.ERCO MACHINE OPERATOR [address] [address] Dear Alexandra Arreguin APRN.ERCO MACHINE OPERATOR: I had the pleasure of seeing [...] exercising and going to physical therapy at [facility] and this is going well so she feels she is doing good. They are thinking about moving back to [place] as other than the above, they are [...] to wait until she moves back to [place]. Palliative services: Therapy and Exercise: Last PT [...] c) the amplitude decrements startingafter the 1st wvho-opb-spcrt sequence. Hand Movements Left 2-Mild. a) 3 [...] and to have informationwhen discussing with her plush brusher. She also believes she has only been taking one of the two blood pressure medications prescribed (we called her plush brusher office and verified that she is supposed [...] points or more) please discuss with your plush brusher. Date/Time BP Sitting Heart Rate Sitting BP [...] Duloxetine 20mg 2 Level of service : 18476 (40-54 min). Time spent 50 min on the day of service, which included preparing to see the patient, uebv-ez-nxap patient care, completing clinical documentation, obtaining and/or reviewing separately obtained history, performing a medically appropriate examination, counseling and educating the patient/family/caregiver, and ordering medications, tests, or procedures. Em Flynn APRN.ERCO MACHINE OPERATOR documented in this encounterC[facility]06-29-2023 Miscellaneous Notes* Addendum Note - Linden Flynn MD - 10/09/2022 1:32 PM EDTAddended by: LINDEN FLYNN on: 10/09/2022 01:32 PM Modules accepted: Orders documented in this encounterC[facility]06-29-2023 Instructions* Patient Instructions* Linden Flynn MD [...] or you can send a message through [employer]. You can also now schedule and select appointments through [employer]. Linden Flynn MD documented in this encounterC[facility]06-29-2023 History of Present illness Narrative* Linden [...] she used to. She moved here from [place]. She is blue from taking silver water [...] Achilles 2+ 2+ Plantar Downgoing Downgoing Coordination [place]-fc-tokh, rapid alternating movements and qwxe-yk-yyix normal bilaterally without dysmetria. Gait Casual gait [...] c) the amplitude decrements startingafter the 1st mkix-goz-sbaiq sequence. Hand Movements Left 3-Moderate. a) more than 5 interruptions during the movement or at least one longer arrest (freeze) in ongoing movement, b) moderate slowing, c) the amplitude decrements starting after the 1st chso-phw-uhidi sequence. Arm Movements Right 2-Mild. a) 3 [...] Sincerely, Linden Flynn MD documented in this encounterCleveland Clinic [facility] HospitalDischarge summary [facility] Medical Records Department [address] [place] [address] Discharge Summary 01/25/25 1449 MR#: [id number] Acct: [id number] Name: MONISHA COHN Rep #:[id number] 7 : 1940 84 From: Davian interiano MD PCP: Tressa Rosales Status:DIS IN [place] [facility] [id number] Providers Date of Admission: 01/20/25 Primary Care [...] and pulmonary hypertension, CAD; withRCA stent at [facility] in [place] (2009) and subsequent inferior wall ST elevation OR s/p RCA stent with cardiogenic shock and [...] recently diagnosed COVID-19 who was transferred from [facility] she was diagnosed with an impacted Right [...] LOC with her fall. Dr. [facility] of [facility] spoke to Dr. Tijerina of [...] repair 01/20/2025 -After mechanical fall at [facility] -Ortho consulted -Patient n.p.o. -Pain control/supportive care [...] risks and benefits of going to the senior living and would like to go today. Hemoglobin [...] in before D/C Order can be placed): Long-Term Facility Charges/Coding Visit Charges Inpatient E&M: 32328 Disch Hosp >30min 01/25/25 1452 Cosigner Signature (if applicable): CC: Dr. Davian Kelly MD; Tressa Rosales~ [facility] Author Davain Kelly [facility] Note Date/Time January 25, 2025 2 :52pm [facility] Medical Records Department [address] [place] [address] Discharge Summary 01/25/25 1449 MR#: [id number] Acct: [id number] Name: MONISHA COHN Rep #:[id number] 7 : 1940 84 From: Davian interiano MD PCP: Tressa Rosales Status:DIS IN [place] [facility] [place]-[place] Providers Date of Admission: 01/20/25 Primary Care [...] and pulmonary hypertension, CAD; withRCA stent at [facility] in [place] (2009) and subsequent inferior wall ST elevation OR s/p RCA stent with cardiogenic shock and [...] recently diagnosed COVID-19 who was transferred from [facility] after she was diagnosed with [...] LOC with her fall. Dr. [facility] of [facility] spoke to Dr. Tijerina of [...] risks and benefits of going to the senior living and would like to go today. Hemoglobin [...] in before D/C Order can be placed): Long-Term Facility Charges/Coding Visit Charges Inpatient E&M: 25931 Disch Hosp >30min 01/25/25 1452 <Electronically signed by Daivan Kelly MD> Cosigner Signature (if applicable): CC: Dr. Davian Kelly MD; Tressa Rosales~ Signed [facility] Work Phone: Evaluation note* Diagnosis Onset Date Resolution Status Bladder spasms acute Edema, lower extremity acute Gout acute Hyperlipidemia acute Urgency of urination acute [facility] Work Phone: Evaluation note* Diagnosis Parkinson's disease (HCC)- Primary Paralysis agitans [place] of skin, accidental or unintentional, sequela Depression, unspecified depression type [facility] Diagnosis Parkinson's disease without dyskinesia or fluctuating manifestations- Primary Hallucinations Orthostatic hypotension Insomnia, unspecified type documented in this encounter [facility]* Diagnosis Onset Date Resolution Status CAD (coronary artery disease) chronic Essential (primary) hypertension chronic Hyperlipidemia chronic Non-rheumatic mitral regurgitation chronic Parkinsons disease chronic CHI (closed head injury) acu te Closed hip fracture acute Fall acute History of Parkinson's disease acute [facility] Work Phone: Evaluation note* Diagnosis Onset Date Resolution Status Closed hip fracture acute History of Parkinson's disease acute [facility] Work Phone: Evaluation note* Diagnosis Parkinson's disease without dyskinesia or fluctuating manifestations (HCC)- Primary Orthostatic hypotension Dysphagia, unspecified type Left arm pain Pain in limb Numbness and tingling in left arm Disturbance of skin sensation documented in this encounter [facility]* Diagnosis Protrusion of cervical intervertebral disc- Primary documented in this encounter [facility]* Diagnosis Acute pain of left shoulder- Primary Protrusion of cervical intervertebral disc Pain in left elbow Pain in joint, upper arm documented in this encounter [facility]* Diagnosis Chronic left shoulder pain- Primary Pain in joint, shoulder region [facility] Diagnosis Parkinson's disease without dyskinesia or fluctuating manifestations (HCC)- Primary Orthostatic hypotension Hallucinations Dysphagia, unspecified type [facility] Diagnosis Acute pain of left shoulder [facility] Diagnosis Chronic left shoulder pain Pain in joint, shoulder region [facility] Diagnosis Dysphagia, unspecified type- Primary Parkinson's disease without dyskinesia or fluctuating manifestations (HCC) Orthostatic hypotension documented in this encounter [facility]* Diagnosis Dysphagia, unspecified type- Primary Parkinson's disease with dyskinesia without fluctuating manifestations (HCC) Numbness and tingling of both feet Hallucinations documented in this encounter [facility]* Diagnosis Numbness and tingling of both feet documented in this encounter [facility]* Diagnosis Onset Date Resolution Status Admit Date 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 CAD (coronary artery disease) chroni c September 27, 2024 10:37am Essential (primary) hypertension chr onic September 27, 2024 10:37am Hyperlipidemia chronic September 27, 2024 10:37am Non-rheumatic mitral regurgitation chronic September 27, 2024 10:37am Parkinsons disease chronic September 112024 10:37am [facility] Work Phone: Reason for referral (narrative)* Diagnostic Procedure Only (Routine) - Pending Review Specialty Diagnoses / Procedures Referred By Contac t Referred To Contact XR IMAGING Diagnoses Chronic left shoulder pain Procedures XR SHOULDER GENERAL 3V OR MORE AP/TRUE AP/OTHER LEFT RADEX SHOULDER COMPLETE MINIMUM 2 VIEWS Claudia Manuel PA-C [address] [place] [address] [place] [address] Referral ID Status Reason Start Date Expiration Date Visits Requested Visits Authorized [id number] Pending Review Auto-Generat ed Referral 09/15/2023 10/13/2024 1 1 [facility] for referral (narrative)* Diagnostic Procedure Only (Routine) - Closed Specialty Diagnoses / Procedures Referred By Contac t Referred To Contact XR IMAGING Diagnoses Chronic left shoulder pain Procedures XR SHOULDER GENERAL 3V OR MORE AP/TRUE AP/OTHER LEFT RADEX SHOULDER COMPLETE MINIMUM 2 VIEWS Claudia Manuel PA-C [address] [place] [address] [place] [address] Referral ID Status Reason Start Date Expiration Date V isits Requested Visits Authorized [id number] Closed Auto-Generate d Referral 09/15/2023 10/13/2024 1 1 [facility] for referral (narrative)No reason for referral information availableWThe [facility] Work Phone: Reason for visit Narrative* Diagnostic Procedure Only (Routine) - Closed Specialty Diagnoses / Procedures Referred By Contac t Referred To Contact XR IMAGING Diagnoses Chronic left shoulder pain Procedures XR SHOULDER GENERAL 3V OR MORE AP/TRUE AP/OTHER LEFT RADEX SHOULDER COMPLETE MINIMUM 2 VIEWS Claudia Manuel PA-C [address] [place] [place] [address] [place] [address] Referral ID Status Reason Start Date Expiration Date V isits Requested Visits Authorized [id number] Closed Auto-Generate d Referral 09/15/2023 10/13/2024 1 1 [facility] Chief Complaint and Reason for Visit [...] disease) March 162023 8:48am Essential (primary) hypertension Dece2023 8:48am Hyperlipidemia March 16, 2024 8 :48am Non-rheumatic mitral regurgitation Dece 2023 8:48am Parkinsons disease March 16, 2024 [...] December 28, 2024 12:46pm Essential (primary) hypertension [facility] 2024 12:46pm Parkinsons disease December [...] December 28, 2024 12:46pm Essential (primary) hypertension [facility] 2024 12:46pm Parkinsons disease December [...] HIGH MDM 60-74 MINUTES Linden Flynn MD [address] [place] [address] Referral ID Status Reason Start Date Expiration Date Visits Requested Visits Authorized [id number] Pending Review PCP Requested Referral 10/09/2022 01/07/2023 1 1 Specialty Diagnoses / Procedures Referred By Arely carlson Referred To Contact [facility] Diagnoses Parkinson's disease (HCC) Procedures CONSULT TO ARBOREAL SCIENTIST OCCUPATIONAL THERAPY EVAL HIGH COMPLEX 60 MINS Linden Flynn MD [address] [place] [address] [facility] [address] [address] Referral ID Status Reason Start Date Expiration Date Visits Requested Visits Authorized [id number] Pending Review Auto-Generat ed Referral 10/09/2022 10/09/2023 1 1 Specialty Diagnoses / Procedures Referred By Arely carlson Referred To Contact [facility] Diagnoses Parkinson's disease (HCC) Procedures CONSULT TO PHYSICAL THERAPY PHYSICAL THERAPY EVALUATION HIGH COMPLEX 45 MINS Linden Flynn MD [address] [place] [address] [facility] [place] [address] [place] [address] Referral ID Status Reason Start Date Expiration Date Visits Requested Visits Authorized [id number] Pending Review Auto-Generat ed Referral 10/09/2022 10/09/2023 1 1 Specialty Diagnoses / Procedures Referred By Contac t Referred To Contact MR IMAGING Diagnoses Spinal stenosis of cervical region Procedures MRI CERVICAL SPINE WO IVCON MRI SPINAL CANAL CERVICAL W/O CONTRAST MATRL Em Flynn, CLERICAL CLERK.ERCO MACHINE OPERATOR [address] [place] [id number] Mr [id number] Referral ID Status Reason Start Date Expiration Date Visits Requested Visits Authorized [id number] Authorized Auto-Generat ed Referral 07/06/2023 08/04/2024 1 1 Referral ID Status Reason Start Date Expiration Date V isits Requested Visits Authorized [id number] Closed Auto-Generate d Referral 07/06/2023 08/04/2024 1 1 Specialty Diagnoses / Procedures Referred By Contac t Referred To Contact [facility] [place] Diagnoses Protrusion of cervical intervertebral disc Procedures [facility] OFFICE/OUTPATIENT [facility] ([facility] 60 MINUTES Em Flynn, CLERICAL CLERK.ERCO MACHINE OPERATOR [address] [place] [id number] Referral ID Status Reason Start Date Expiration Date Visits Requested Visits Authorized [id number] Authorized PCP Requested Referral 08/03/2023 08/02/2024 1 1 Specialty Diagnoses / Procedures Referred By Contac t Referred To Contact Orthopedics Diagnoses Acute pain of left shoulder Pain in left elbow Procedures CONSULT TO ORTHOPAEDICS OFFICE/OUTPATIENT [facility] 60 MINUTES Stephan Sheehan, MODESTA [address] [place] [address] Referral ID Status Reason Start Date Expiration Date Visits Requested Visits Authorized [id number] Authorized PCP Requested Referral 08/27/2023 08/26/2024 1 1 Specialty Diagnoses / Procedures Referred By Contac t Referred To Contact [facility] Diagnoses Protrusion of cervical intervertebral disc Acute pain of left shoulder Pain in left elbow Procedures CONSULT TO PHYSICAL THERAPY PHYSICAL THERAPY EVALUATION HIGH COMPLEX 45 MINS Stephan Sheehan, HERBERTC [address] [place] [address] [facility] [address] [address] Referral ID Status Reason Start Date Expiration Date Visits Requested Visits Authorized [id number] Pending Review Auto-Generat ed Referral 08/27/2023 08/26/2024 1 1 Specialty Diagnoses / Procedures Referred By Contac t Referred To Contact Diagnoses Parkinson's disease without dyskinesia or fluctuating manifestations (HCC) Procedures PROVIDER ORDERED FOLLOW UP OFFICE/OUTPATIENT NEW HIGH MDM 60 MINUTES Em Flynn, CLERICAL CLERK.ERCO MACHINE OPERATOR [address] [address] Referral ID Status Reason Start Date Expiration Date Visits Requested Visits Authorized [id number] Authorized PCP Requested Referral 12/30/2023 09/28/2024 1 1 Specialty Diagnoses / Procedures Referred By Contac t Referred To Contact [facility] Diagnoses Parkinson's disease without dyskinesia or fluctuating manifestations (HCC) Procedures CONSULT TO PHYSICAL THERAPY PHYSICAL THERAPY EVALUATION HIGH COMPLEX 45 MINS Em Flynn, CLERICAL CLERK.ERCO MACHINE OPERATOR [address] [address] [facility] [address] [address] Referral ID Status Reason Start Date Expiration Date Visits Requested Visits Authorized [id number] Pending Review Auto-Generat ed Referral 09/29/2023 09/28/2024 1 1 Specialty Diagnoses / Procedures Referred By Contac t Referred To Contact [facility] Diagnoses Acute pain of left shoulder Procedures CONSULT TO PHYSICAL THERAPY PHYSICAL THERAPY EVALUATION HIGH COMPLEX 45 MINS Claudia Manuel PA-C [address] [place] [address] [facility] [address] [address] Referral ID Status Reason Start Date Expiration Date Visits Requested Visits Authorized [id number] Pending Review Auto-Generat ed Referral 10/02/2023 10/01/2024 1 1 Referral ID Status Reason Start Date Expiration Date Visits Requested Visits Authorized [id number] Authorized PCP Requested Referral 12/30/2024 1 1 Specialty Diagnoses / Procedures Referred By Contac t Referred To Contact [facility] Diagnoses Parkinson's disease without dyskinesia or fluctuating manifestations (HCC) Dysphagia, unspecified type Procedures CONSULT TO SPEECH THERAPY OFFICE/OUTPATIENT [facility] 60 MINUTES Em Flynn APRN.ERCO MACHINE OPERATOR [address] [address] [facility] [place] [address] [place] [address] Referral ID Status Reason Start Date Expiration Date Visits Requested Visits Authorized [id number] Pending Review Auto-Generat ed Referral 12/31/2023 12/30/2024 1 1 Advance Directives No Advanced Directives Records Found Advance Directive Response Recorded Date/ Time Living Will No February 01 1:49pm Power of Urology Surgeon No February 01, 2023 1:49pm Advance Directive Response Recorded Date/ Time Living Will No February 01 4:06pm Power of Urology Surgeon No February 01, 2023 4:06pm Advance Directive Response Recorded Date/ Time Name of Medical Power of Urology Surgeon Palmira, daughter , CHRISTY May 01, 2023 1:29pm Living Will No May 01 1:29pm Power of Urology Surgeon Yes May 01, 2023 1:29pm Advance Directive Response Recorded Date/ Time Do you have a Healthcare Power of Urology Surgeon? Yes January 20, 2025 1:18am Name of Medical Power of Urology Surgeon palmira mayer January 20, 2025 1:18am Summary [...] or prosecute any alcohol or drug abuse patient.[facility] the event this information is protected by the Federal Confidentiality of Alcohol and Drug Abuse Patient Records regulations: The Federal rules restrict any use of the information to criminally investigate or prosecute any alcohol or drug abuse patient.[facility] the event this information is protected by the Federal Confidentiality of Alcohol and Drug Abuse Patient Records regulations: The Federal rules restrict any use of the information to criminally investigate or prosecute any alcohol or drug abuse patient.[facility] the event this information is protected by the Federal Confidentiality of Alcohol and Drug Abuse Patient Records regulations: The Federal rules restrict any use of the information to criminally investigate or prosecute any alcohol or drug abuse patient.[facility] the event this information is protected by the Federal Confidentiality of Alcohol and Drug Abuse Patient Records regulations: The Federal rules restrict any use of the information to criminally investigate or prosecute any alcohol or drug abuse patient.[facility] Hospital[facility] the event this information is protected by the Federal Confidentiality of Alcohol and Drug Abuse Patient Records regulations: The Federal rules restrict any use of the information to criminally investigate or prosecute any alcohol or drug abuse patient.[facility] Hospital[facility] the event this information is protected by the Federal Confidentiality of Alcohol and Drug Abuse Patient Records regulations: The Federal rules restrict any use of the information to criminally investigate or prosecute any alcohol or drug abuse patient.[facility] Hospital[facility] the event this information is protected by the Federal Confidentiality of Alcohol and Drug Abuse Patient Records regulations: The Federal rules restrict any use of the information to criminally investigate or prosecute any alcohol or drug abuse patient.[facility] Hospital[facility] the event this information is protected by the Federal Confidentiality of Alcohol and Drug Abuse Patient Records regulations: The Federal rules restrict any use of the information to criminally investigate or prosecute any alcohol or drug abuse patient.[facility] Hospital[facility] the event this information is protected by the Federal Confidentiality of Alcohol and Drug Abuse Patient Records regulations: The Federal rules restrict any use of the information to criminally investigate or prosecute any alcohol or drug abuse patient.[facility] Hospital[facility] the event this information is protected by the Federal Confidentiality of Alcohol and Drug Abuse Patient Records regulations: The Federal rules restrict any use of the information to criminally investigate or prosecute any alcohol or drug abuse patient.[facility] Hospital[facility] the event this information is protected by the Federal Confidentiality of Alcohol and Drug Abuse Patient Records regulations: The Federal rules restrict any use of the information to criminally investigate or prosecute any alcohol or drug abuse patient.[facility] HospitalIn the event this information is protected by the Federal Confidentiality of Alcohol and Drug Abuse Patient Records regulations: The Federal rules restrict any use of the information to criminally investigate or prosecute any alcohol or drug abuse patient.[facility] Hospital[facility] the event this information is protected by the Federal Confidentiality of Alcohol and Drug Abuse Patient Records regulations: The Federal rules restrict any use of the information to criminally investigate or prosecute any alcohol or drug abuse patient.[facility] Hospital[facility] the event this information is protected by the Federal Confidentiality of Alcohol and Drug Abuse Patient Records regulations: The Federal rules restrict any use of the information to criminally investigate or prosecute any alcohol or drug abuse patient.[facility] HospitalIn the event this information is protected by the Federal Confidentiality of Alcohol and Drug Abuse Patient Records regulations: The Federal rules restrict any use of the information to criminally investigate or prosecute any alcohol or drug abuse patient.[facility] HospitalIn the event this information is protected by the Federal Confidentiality of Alcohol and Drug Abuse Patient Records regulations: The Federal rules restrict any use of the information to criminally investigate or prosecute any alcohol or drug abuse patient.[facility] HospitalIn the event this information is protected by the Federal Confidentiality of Alcohol and Drug Abuse Patient Records regulations: The Federal rules restrict any use of the information to criminally investigate or prosecute any alcohol or drug abuse patient.[facility] HospitalIn the event this information is protected by the Federal Confidentiality of Alcohol and Drug Abuse Patient Records regulations: The Federal rules restrict any use of the information to criminally investigate or prosecute any alcohol or drug abuse patient.[facility] HospitalIn the event this information is protected by the Federal Confidentiality of Alcohol and Drug Abuse Patient Records regulations: The Federal rules restrict any use of the information to criminally investigate or prosecute any alcohol or drug abuse patient.[facility] HospitalIn the event this information is protected by the Federal Confidentiality of Alcohol and Drug Abuse Patient Records regulations: The Federal rules restrict any use of the information to criminally investigate or prosecute any alcohol or drug abuse patient.[facility] HospitalIn the event this information is protected by the Federal Confidentiality of Alcohol and Drug Abuse Patient Records regulations: The Federal rules restrict any use of the information to criminally investigate or prosecute any alcohol or drug abuse patient.[facility] Reason for Visit (unrecogniz ed section and content) Reason Comments New Patient Evaluation Reason Comments Parkinson's Disease Specialty Diagnoses / Procedures Referred By Contac t Referred To Contact Diagnoses Parkinson's disease Procedures PROVIDER ORDERED FOLLOW UP OFFICE/OUTPATIENT [facility] 60-74 MINUTES Linden Flynn MD [address] [place] [address] Referral ID Status Reason Start Date Expiration Date V isits Requested Visits Authorized [id number] Closed PCP Requested Referral 10/09/2022 01/07/2023 1 1 Reason Comments Follow Up Pt wants to discuss left arm pain and left groin pain Parkinson's Disease Specialty Diagnoses / Procedures Referred By Contac t Referred To Contact MR IMAGING Diagnoses Spinal stenosis of cervical region Procedures MRI CERVICAL SPINE WO IVCON MRI SPINAL CANAL CERVICAL W/O CONTRAST Em Walker, CLERICAL CLERK.ERCO MACHINE OPERATOR [address] [place] [address] [facility] [place] [address] Referral ID Status Reason Start Date Expiration Date V isits Requested Visits Authorized [id number] Closed Auto-Generate d Referral 07/06/2023 08/04/2024 1 1 Reason Comments Results Reason Comments Neck Pain Neck pain Left arm p ain. Would like to discuss MRI and X-ray Results. Specialty Diagnoses / Procedures Referred By Contac t Referred To Contact [facility] Diagnoses Protrusion of cervical intervertebral disc Procedures [facility] OFFICE/OUTPATIENT NEW HIGH MDM 60 MINUTES Em Flynn, CLERICAL CLERK.ERCO MACHINE OPERATOR [address] [place] [phone] Referral ID Status Reason Start Date Expiration Date V isits Requested Visits Authorized [id number] Closed PCP Requested Referral 08/03/2023 08/02/2024 1 1 Reason Comments Parkinson's Disease Follow Up Reason Comments New Pain Specialty Diagnoses / Procedures Referred By Contac t Referred To Contact Orthopedics Diagnoses Acute pain of left shoulder Pain in left elbow Procedures CONSULT TO ORTHOPAEDICS OFFICE/OUTPATIENT NEW [facility] MDM 60 MINUTES Stephan Sheehan PA-C [address] [place] [id number] Referral ID Status Reason Start Date Expiration Date V isits Requested Visits Authorized [id number] Closed PCP Requested Referral 08/27/2023 08/26/2024 1 1 Reason Comments Patient Update 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 Question 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 - Other Reason Comments Radiology Mammogram Reason Comments Parkinson's Disease Specialty Diagnoses / Procedures Referred By Contac t Referred To Contact Diagnoses Parkinson's disease without dyskinesia or fluctuating manifestations (HCC) Procedures PROVIDER ORDERED FOLLOW UP OFFICE/OUTPATIENT NEW [facility] MDM 60 MINUTES Em Flynn, CLERICAL CLERK.ERCO MACHINE OPERATOR [address] [place] [address] Referral ID Status Reason Start Date Expiration Date V isits Requested Visits Authorized [id number] Closed PCP Requested Referral 12/30/2023 09/28/2024 1 1 Reason Comments Parkinson's Disease Specialty Diagnoses / Procedures Referred By Contac t Referred To Contact Diagnoses Parkinson's disease without dyskinesia or fluctuating manifestations (HCC) Procedures PROVIDER ORDERED FOLLOW UP OFFICE/OUTPATIENT [facility] 60 MINUTES Em Flynn APRN.ERCO MACHINE OPERATOR [address] [place] [address] Phone: tel: fax: Referral ID Status Reason Start Date Expiration Date V isits Requested Visits Authorized [id number] Closed PCP Requested Referral 03/31/2024 12/30/2024 1 1 Reason Comments Neuropathy Specialty Diagnoses / Procedures Referred By Contac t Referred To Contact Neurology Diagnoses Numbness and tingling of both feet Numbness and tingling in both hands Procedures CONSULT TO NEUROLOGY OFFICE/OUTPATIENT [facility] 60 MINUTES Em Flynn APRN.ERCO MACHINE OPERATOR [address] [place] [address] Phone: tel: fax: Referral ID Status Reason Start Date Expiration Date V isits Requested Visits Authorized [id number] Closed PCP Requested Referral 06/28/2024 06/28/2025 1 1 Care Teams (unrecognized sec tion and content) Team Status: Active Member Role Status Dates Alexandra Arreguin RESEARCH AND DEVELOPMENT ENGINEER, RESEARCH AND DEVELOPMENT ENGINEER-C Primary Care Provider Active Team Status: Active Member Role Status Dates Alexandra Arreguin NP, RESEARCH AND DEVELOPMENT ENGINEER-C Primary Care Provider Active Dr. Law Gold , DO Emergency Provider Active Dr. Jasmin Steele MD Admit Provider, Other Provider Active Dr. Davian Grier , Other Provider Active Dr. Darline Lundy MD Attending Provider, Other [facility] er Active Team Status: Active Member Role Status Dates Alexandra Arreguin NP, RESEARCH AND DEVELOPMENT ENGINEER-C Primary Care Provider Active Dr. Law Gold , DO Emergency Provider Active Dr. Jasmin Steele MD Admit Provider, Other Provider Active Dr. Darline Lundy MD Other Provider Active Dr. Davian Grier , Other Provider Active Dr. Jaylon Boone MD Attending Provider Active Team Status: Active Member Role Status Dates Alexandra Arreguin NP, RESEARCH AND DEVELOPMENT ENGINEER-C Primary Care Provider Active Dr. Law Gold , DO Emergency Provider Active Dr. Jasmin Steele MD Admit Provider, Other Provider Active Dr. Darline Lundy MD Attending Provider, Other Provid er Active Dr. Davian Spittle , DO Other Provider Active Team Status: Inactive Member Role Status Dates Alexandra Arreguin RESEARCH AND DEVELOPMENT ENGINEER, RESEARCH AND DEVELOPMENT ENGINEER-C Primary Care Provider Active Dr. Danielle Vernon MD Attending Provider, Referring Pr ovider Active Team Status: Inactive Member Role Status Dates Alexandra Arreguin RESEARCH AND DEVELOPMENT ENGINEER, RESEARCH AND DEVELOPMENT ENGINEER-C Primary Care Provider Active Dr. Law Gold , DO Emergency Provider Active Dr. Jasmin Steele MD Admit Provider, Other Provider Active Dr. Darline Lundy MD Attending Provider Active Dr. Davian Grier , DO Other Provider Active Team Status: Inactive Member Role Status Dates Alexandra Arreguin RESEARCH AND DEVELOPMENT ENGINEER, RESEARCH AND DEVELOPMENT ENGINEER-C Primary Care Provider Active Dr. Law Gold , DO Emergency Provider Active Signal Manager Relationship Specialty Start Date End Date Alexandra Arreguin, CLERICAL CLERK.ERCO MACHINE OPERATOR [address] [place], [place] [phone] PCP - General Family Medicine 01/20/23 Team Status: Inactive Member Role Status Dates Alexandra Arreguin RESEARCH AND DEVELOPMENT ENGINEER, RESEARCH AND DEVELOPMENT ENGINEER-C Primary Care Provider, Referr ing Provider Active Dr. Danielle Vernon MD Attending Provider Active Team Status: Active Member Role Status Dates Alexandra Arreguin RESEARCH AND DEVELOPMENT ENGINEER, RESEARCH AND DEVELOPMENT ENGINEER-C Primary Care Provider Active Dr. Law Gold , DO Emergency Provider Active Dr. Jasmin Steele MD Admit Provider, Attending Prov ider Active Signal Manager Relationship Specialty Start Date End Date Alexandra Arreguin, CLERICAL CLERK.ERCO MACHINE OPERATOR [address] [place], [place] [phone] PCP - General Family Medicine 01/20/23 Signal Manager Relationship Specialty Start Date End Date Alexandra Arreguin, CLERICAL CLERK.ERCO MACHINE OPERATOR [address] [place], [place] [phone] PCP - General Family Medicine 01/20/23 Signal Manager Relationship Specialty Start Date End Date Alexandra Arreguin, CLERICAL CLERK.ERCO MACHINE OPERATOR [address] [place], [place] [phone] PCP - General Family Medicine 01/20/23 Signal Manager Relationship Specialty Start Date End Date Alexandra Arreguin, CLERICAL CLERK.ERCO MACHINE OPERATOR [address] [place] [address] PCP - General Family Medicine 01/20/23 Signal Manager Relationship Specialty Start Date End Date Alexandra Arreguin, CLERICAL CLERK.ERCO MACHINE OPERATOR [address] [place] [address] PCP - General Family Medicine 01/20/23 Signal Manager Relationship Specialty Start Date End Date Alexandra Arreguin, CLERICAL CLERK.ERCO MACHINE OPERATOR [address] [place] [address] PCP - General Family Medicine 01/20/23 Signal Manager Relationship Specialty Start Date End Date Alexandra Arreguin, CLERICAL CLERK.ERCO MACHINE OPERATOR [address] [place] [address] PCP - General Family Medicine 01/20/23 Signal Manager Relationship Specialty Start Date End Date Alexandra Arreguin, CLERICAL CLERK.ERCO MACHINE OPERATOR [address] [place] [address] PCP - General Family Medicine 01/20/23 Signal Manager Relationship Specialty Start Date End Date Alexandra Arreguin, CLERICAL CLERK.ERCO MACHINE OPERATOR [address] [place] [address] PCP - General Family Medicine 01/20/23 Signal Manager Relationship Specialty Start Date End Date Alexandra Arreguin, CLERICAL CLERK.ERCO MACHINE OPERATOR [address] [place] [address] PCP - General Family Medicine 01/20/23 Signal Manager Relationship Specialty Start Date End Date Alexandra Arreguin, CLERICAL CLERK.ERCO MACHINE OPERATOR [address] [place] [address] PCP - General Family Medicine 01/20/23 Signal Manager Relationship Specialty Start Date End Date Alexandra Arreguin, CLERICAL CLERK.ERCO MACHINE OPERATOR [address] [place], [place] [phone] PCP - General Family Medicine 01/20/23 Signal Manager Relationship Specialty Start Date End Date Alexandra Arreguin, CLERICAL CLERK.ERCO MACHINE OPERATOR [address] [place], [place] [phone] PCP - General Family Medicine 01/20/23 Signal Manager Relationship Specialty Start Date End Date Alexandra Arreguin, CLERICAL CLERK.ERCO MACHINE OPERATOR [address] [place] [address] PCP - General Family Medicine 01/20/23 Signal Manager Relationship Specialty Start Date End Date Alexandra Arreguin, CLERICAL CLERK.ERCO MACHINE OPERATOR [address] [place] [address] PCP - General Family Medicine 01/20/23 Signal Manager Relationship Specialty Start Date End Date Alexandra Arreguin, CLERICAL CLERK.ERCO MACHINE OPERATOR [address] [place], [place] [phone] PCP - General Family Medicine 01/20/23 Team Status: Active Member Role Status Dates Tressa HALL Primary Care Provider Active Team Status: Inactive Member Role Status Dates Alexandra Arreguin RESEARCH AND DEVELOPMENT ENGINEER, RESEARCH AND DEVELOPMENT ENGINEER-C Primary Care Provider Active Start: March 16, 2024 End: March 16, 2024 Alexandra Arreguin RESEARCH AND DEVELOPMENT ENGINEER, RESEARCH AND DEVELOPMENT ENGINEER-C Referring Provider Active Start: March 16, 2024 End: March 16, 2024 Dr. Danielle Vernon MD Attending Provider Active Start: March 16, 2024 End: March 16, 2024 Team Status: Inactive Member Role Status Dates Didi Lujan RESEARCH AND DEVELOPMENT ENGINEER, RESEARCH AND DEVELOPMENT ENGINEER-C Attending Provider Active Start: June 03, 2024 End: June 03, 2024 Didi Lujan RESEARCH AND DEVELOPMENT ENGINEER, RESEARCH AND DEVELOPMENT ENGINEER-C Referring Provider Active Start: June 03, 2024 End: June 03, 2024 Tressa Bobby OLS Primary Care Provider Active Start: June 03, 2024 End: June 03, 2024 Signal Manager Relationship Specialty Start Date End Date Alexandra Arreguin APRN.RUPALI [address] [address] PCP - General Family Medicine 01/20/23 Team Status: Inactive Member Role Status Dates Tressa Bobby HALL Primary Care Provider Active Start: September 27, 2024 End: September 27, 2024 Tressa Bobby ISABEL Referring Provider Active Start: September 27, 2024 End: September 27, 2024 Dr. Danielle Vernon MD Attending Provider Active Start: September 27, 2024 End: September 27, 2024 Team Status: Active Member Role/Relationship Status Dates Tressa Bobby ISABEL Primary Care Provider Active Team Status: Inactive Member Role/Relationship Status Dates Tressa Bobby ISABEL Primary Care Provider Active Start: September 27, 2024 End: September 27, 2024 Tressa Bobby HALL Referring Provider Active Start: September 27, 2024 End: September 27, 2024 Dr. Danielle Vernon MD Attending Provider Active Start: September 27, 2024 End: September 27, 2024 Team Status: Inactive Member Role/Relationship Status Dates Tressa Bobby ISABEL Primary Care Provider Active Start: November [...] Dates Tressa HALL Primary care physician Active Team Status: Inactive Member Role/Relationship Status Dates Tressa HALL Primary care physician Active Start: September 27, [...] Status: Active Member Role/Relationship Status Dates Tressa Bobby ISABEL Primary care physician Active Start: November [...] Team Status: Active Member Role/Relationship Status Dates [facility] Primary care physician Active Start: January 20, 2025 Dr. Stephan Martel , DO Admitting physician Active Start: January 20, 2025 Dr. Stephan Martel , DO Attending physician Active Start: January 20, 2025 Dr. Stephan Martel DO Nurse Practitioner Active Start: January 20, 2025 Dr. Braulio Tijerina MD Nurse Practitioner Active Start: January 20, 2025 Team Status: Active Member Role/Relationship Status Dates [facility] Primary care physician Active Start: January 20, 2025 Dr. Danielle Vernon MD Attending physician Active Start: January 20, 2025 Dr. Danielle Vernon MD Referring Provider Active Start: January 20, 2025 Team Status: Active Member Role/Relationship Status Dates [facility] Primary care physician Active Start: January 21, [...] Team Status: Active Member Role/Relationship Status Dates [facility] Primary care physician Active Start: January 22, [...] Team Status: Active Member Role/Relationship Status Dates [facility] Primary care physician Active Start: January 23, [...] Team Status: Active Member Role/Relationship Status Dates [facility] Primary care physician Active Start: January 24, [...] Team Status: Active Member Role/Relationship Status Dates [facility] Primary care physician Active Start: January 25, [...] section and content) DATE CREATED AUTHOR 10/02/2023 [facility] DATE CREATED AUTHOR AUTHOR'S ORGANIZ ATION 12/30/2024 [facility] DATE CREATED AUTHOR AUTHOR'S ORGANIZ ATION 01/22/2025 [facility] DATE CREATED AUTHOR AUTHOR'S ORGANIZ ATION 02/16/2025 [facility] FOR RECORDS PERTAINING TO PATIENTS WHO ARE [...] BE BASED ON THE PRIMARY CLINICAL RECORDS. [facility]. provides no warranty or guarantee of the accuracy or completeness of information in this document.
== END 2025-03-10 19:15 | disposition skilled nursing facility (03) ==
PROVIDERS: Emergency Provider Emergency Medicine; PCP Internal Medicine Geriatric Medicine; Visit Provider Emergency Medicine
DX: I82.461 Acute embolism and thrombosis of right calf muscular vein (principal); G20.A1 Parkinson's disease without dyskinesia, without mention of fluctuations; S72.011A Unspecified intracapsular fracture of right femur, initial encounter for closed fracture; X58.XXXA Exposure to other specified factors, initial encounter; I25.10 Atherosclerotic heart disease of native coronary artery without angina pectoris; I25.2 Old myocardial infarction; E78.5 Hyperlipidemia, unspecified; I10 Essential (primary) hypertension; D64.9 Anemia, unspecified; N28.9 Disorder of kidney and ureter, unspecified; Z95.5 Presence of coronary angioplasty implant and graft; Z79.01 Long term (current) use of anticoagulants; Z79.82 Long term (current) use of aspirin; Z79.899 Other long term (current) drug therapy; Z87.891 Personal history of nicotine dependence
CPT/HCPCS: 99283

== ENCOUNTER 2025-03-24 13:13 | Inpatient (IN) | payer MEDICARE, MEDICAID, SELFPAY ==
[2025-03-24] VITALS (9 sets, daily range): BP systolic 95–167; BP diastolic 49–70; PULSE 61–80; RESP 16–20; TEMP 25.5–37.1; O2SAT 94–100; BMI 34.9; BMI 28.8
--- NOTE | 2025-03-24 14:00 | RAD_ITS ---
PROCEDURE: CHEST 1 VIEW (PORTABLE) 03/24/2025 REASON FOR EXAM: WEAKNESS TECHNIQUE: Frontal view of the chest. COMPARISON: 01/19/2025 FINDINGS: Hardware: PICC line placed through a left upper extremity approach with the tip at the junction of superior vena cava and right atrium. Heart: Mild cardiomegaly. Tortuous atherosclerosis of the aorta Lungs: Hypoinflated lungs. Mild pulmonary venous congestion. Small right pleural effusion. No pneumothorax. Bones: Multilevel degenerative disc disease and spondylosis RAD/Chest 1 View (Portable) IMPRESSION: PICC line through right upper extremity approach with the tip in the superior v silvio cava/right atrial junction. Low lung volumes with small right effusion and mild pulmonary venous congestion . Reading Location: [id number]
--- NOTE | 2025-03-24 14:00 | RAD_ITS ---
PROCEDURE: HIP, UNI W/ PELVIS 2-3 VIEWS 03/24/2025 REASON FOR EXAM: PAIN/INFECTION TECHNIQUE: Procedure Code: RAD Modality: DX Procedure: HIP, UNI W/ PELVIS 2-3 VIEWS Laterality: Right. COMPARISON: Right hip and pelvis series of 02/28/2025. RAD/HIP, UNI W/ Pelvis 2-3 Views IMPRESSION: Prominent degenerative changes of the visualized lower lumbar spine again noted . Partially visualized left proximal femoral endoprosthesis with interlocking scr ew and extensive mature callus formation. No evidence of metallic fracture or screw loosening is seen in visualized areas. A proximal right femoral endoprosthesis is stable in alignment. No evidence of loosening or metallic fracture. No fracture site is seen. If clinical concern persists, short-term follow-up imaging may be obtained to r ule out a currently occult fracture. Reading Location: [id number]
--- NOTE | 2025-03-24 14:00 | EKG12_ITS ---
Test Reason : GENERAL Blood Pressure : */* mmHG Vent. Rate : 59 BPM Atrial Rate : 59 BPM P-R Int : 158 ms QRS Dur : 78 ms QT Int : 410 ms P-R-T Axes : 49 36 41 degrees QTcB Int : 405 ms Sinus bradycardia Otherwise normal ECG Confirmed by SANDRA DEL RIO, VITA ([id number]), news editor CHIO GUERRERO ([id number]) on 03/27/2025 6:48:33 AM Referred By: Confirmed By: VITA FLORES MD
--- NOTE | 2025-03-24 14:02 | EDS_ITS ---
HPI History of Present Illness Chief Complaint: Wound Informant: patient, EMS and SNF Narrative Narrative: Patient is an 84-year-old female presenting with concerns for a possible infection at right hip surgical site. - [facility] physician referred her to the ED due to concerns about persistent or worsening infection and uncertainty regarding appropriate antibiotic therapy. - Recent right hip ORIF complicated by infection, necessitating hardware removal, wound VAC placement, and IV antibiotics. - Developed an itchy rash on her leg while on rifampin and vancomycin, leading to discontinuation of the rifampin 1 week ago, rash persists. - Wound VAC has been removed; patient is unsure of the exact date but confirms it was not today. - Patient reports swelling and pruritus in her legs, with associated pain exacerbated by ambulation. - Denies dyspnea, chest discomfort, or abdominal pain. - Reports numbness at the surgical site, with some areas tender to palpation. - Observes increased erythema at the site over the past few days. [facility] History Anemia MRSA (methicillin resistant staph aureus) culture positive Nocturia Urge incontinence Overactive bladder Former tobacco use Depression Hypertension Fall CHI (closed head injury) Presence of stent in coronary artery (~12/22/21) Atherosclerotic heart disease of [place] coronary artery without angina pectoris ST elevation myocardial infarction (STEMI) of inferior wall (~12/22/21) Essential (primary) hypertension Parkinsons disease Urgency of urination Gout Cardiogenic shock Non-rheumatic mitral regurgitation Non-rheumatic tricuspid valve insufficiency Pulmonary hypertension Emphysema with chronic bronchitis Fibromyalgia Hyperlipidemia CAD (coronary artery disease) Bladder spasms Edema, lower extremity Myocardial infarction Home Medications ?Medication ?Instructions ?Recorded ?Last Taken ?Type acetaminophen 325 mg capsule 650 mg PO Q8H PRN fever o r pain 05/01/23 04/29/23 History atorvastatin 40 mg tablet 40 mg PO QHS hYPERLIPIDEMIA 05/01/23 04/30/23 History polyethylene glycol 3350 17 17 g PO DAILY PRN constipa tion 05/01/23 05/01/23 History gram/dose oral powder (ClearLax) psyllium husk 3.4 gram/5.4 gram 1 tbsp PO DAILY PRN CO NSTIPATION 05/01/23 04/30/23 History oral powder (Stacie-Mucil) alendronate 70 mg tablet 70 mg PO QWEEK osteoporosis 09/27/24 Unknown History duloxetine 20 mg capsule,delayed 20 mg PO QDAY DEPRESS ION 09/27/24 Unknown History release guaifenesin 100 mg/5 mL oral liquid 200 mg PO Q4H PRN cough 12/28/24 Unknown History melatonin 3 mg capsule 3 mg PO HS sleep 12/28/24 Un known History simethicone 125 mg chewable tablet 125 mg PO BID PRN a bdominal 12/28/24 Unknown History (Mylanta Gas) distention ascorbic acid (vitamin C) 500 mg 500 mg PO BID supplem ent 01/20/25 Unknown History capsule carbidopa 25 mg-levodopa 100 mg 1.5 tab PO TID kelsey on 01/20/25 Unknown History tablet (Dhivy) mirabegron 50 mg tablet,extended 50 mg PO DAILY bladde r 01/20/25 Unknown History release 24 hr (Myrbetriq) acetaminophen 500 mg tablet 500 mg PO Q8H PRN pain 09/04 Unknown History (Tylenol Extra Strength) ferrous sulfate 325 mg (65 mg 325 mg PO BID ANEMIA 09/04 Unknown History iron) tablet (FeroSul) acetaminophen 500 mg capsule 500 mg PO TID PAIN Unknown History aluminum-mag hydroxide-simethicone 10 ml PO Q4H PRN in digestion, GAS, 02/28/25 Unknown History 400 mg-400 mg-40 mg/5 mL oral susp HEARTBURN, NAUSEA (Advanced Antacid-[place]) aspirin 81 mg tablet,delayed 81 mg PO BREAKFAST ANTICO AGULANT 02/28/25 Unknown History release ceramides 1,3,6-II (CeraVe Daily 1 applic topical LAURO Y DRY SKIN 02/28/25 Unknown History Moisturizing lotion) cholecalciferol (vitamin D3) 50 50 mcg PO DAILY SUPPLE MENT 02/28/25 Unknown History mcg (2,000 unit) capsule (D3-2000) cyanocobalamin (vitamin B-12) 500 500 mcg PO DAILY ANE SORAYA 02/28/25 Unknown History mcg tablet (Vitamin B-12) sennosides 8.6 mg tablet (Laxative 8.6 mg PO BID CONST IPATION 02/28/25 Unknown History (sennosides)) rifampin 300 mg capsule 300 mg PO Q12H 90 days #180 caps 03/03/25 Unknown Rx vancomycin 750 mg intravenous 750 mg IV Q12H 40 days # 80 ea 03/03/25 Unknown Rx solution enoxaparin 80 mg/0.8 mL 74 mg (0.74 mL) subcut Q12H #8 mL 03/05/25 Unknown Rx subcutaneous syringe (Lovenox) metoprolol tartrate 25 mg tablet 25 mg PO BID #0 tabs 03/05/25 Unknown Rx Allergy/AdvReac Type Severity Reaction Status Date / Time oxycodone (From Percocet) Allergy Severe Hives Verified 03/24/25 13:16 Family History Father Heart disease Surgical History History 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 alcohol intake: current alcohol intake frequency: holidays/special occasions only substance use type: does not use caffeine: Yes Type: coffee Number of servings: 2 ROS ROS ED Constitutional Constitutional ED: Reports weakness; Denies chills or fever(s) Eyes Eyes: Denies change in vision or diplopia ENT ENT ED: Denies rhinorrhea or sore throat Cardiovascular Cardiovascular: Denies chest pain or palpitations Respiratory/Chest Respiratory/Chest: Denies cough or dyspnea Gastrointestinal Gastrointestinal: Denies abdominal pain, diarrhea, nausea or vomiting Genitourinary Genitourinary ED: Denies dysuria or hematuria Musculoskeletal Musculoskeletal: Reports extremity pain; Denies back pain or neck pain Integumentary Reports pruritus, rash and wounds; Denies abscess Neurologic Neurologic: Denies headache(s), paresthesias or weakness Psychiatric Psychiatric: Denies suicidal thoughts EXAM Physical Exam Const Vital Signs: 03/24/25 13:14 03/24/25 13:16 03/24/25 15:13 Temperature 98.7 F 98.7 F Temperature Source Temporal Oral Pulse Rate 61 61 69 Respiratory Rate 19 H 20 H 20 H Blood Pressure 95/49 L 107/64 132/59 H Blood Pressure Mean 64 78 83 Pulse Ox 100 100 Oxygen Delivery Method Room Air Room Air Room Air Positive well nourished and well developed Constitutional Narrative: Ashen/cyanotic face but patient keenly alert conversive denies dyspnea, in context of pulse ox 100% on room air General Appearance ED: well developed and NAD HEENT Reports moist mucous membranes normocephalic and atraumatic Eyes PERRL and EOMs intact bilaterally Neck full ROM and supple Resp normal respiratory effort and clear to auscultation bilaterally Auscultation: diminished lung sounds Cardio regular rate, regular rhythm and no murmurs Rate: Negative for tachycardic GI non-tender and non-distended Auscultation: normoactive bowel sounds Palpation: soft Back/Spine no CVA tenderness General Back: other FROM Extremity Extremity Narrative: Mildly tender splotchy erythematous rash on both lower legs that the patient states is also pruritic. No induration or lymphangitis. With regards to the surgical wound lateral right hip, there is no dehiscence, there is mildly tender erythema surrounding it, and a mild amount of serosanguineous discharge expressible from the wound itself. Patient is able to move her hip a little states he has pain with doing so. General Extremety ED: Yes edema; Negative for pulses abnormal or tenderness General Extremity: edema bilateral lower extremity Details: moderate; Negative for pulses abnormal Neuro oriented x3, CN's II-XII intact bilaterally and no sensory deficits noted Sensorium / Orientation: awake and alert Motor Exam: strength 5/5 throughout Psych mental status grossly normal Skin Skin Narrative: See extremity exam, rash on lower legs, and surgical wound right lateral hip MDM MDM MDM Narrative Medical decision making narrative: 3v x-rays of the right hip and 1v of the chest were obtained; both show no acute abnormality on my interpretation. There is no subcutaneous gas, suggesting no sign of necrotizing fasciitis around the right hip. Labs are reassuring, showing no leukocytosis and stable anemia, with a white blood cell count of 7.6 and a hemoglobin of 8.2. The most recent hemoglobin was 7.8. Platelets are elevated at 511, which may be an acute phase reactant. Lactate is less than 1.0, arguing against acute sepsis. The patient was given empiric IV fluids initially due to a blood pressure of 95/49. On re-evaluation, her blood pressure improved to 107/64 and then 132/59. She has no tachycardia and is not febrile. She appears ashy in her face, but she has no respiratory distress and her oxygen saturation is excellent. The x-ray is unremarkable. When family arrived later, they stated that this is normal for her as she drank silver water for many years and has had a silver-colored face for years. I discussed the case with Dr. Tijerina from Orthopedics. He advises admitting the patient for an incisional wound VAC placement, which he believes will be more efficacious than a repeat operation, given her poor soft tissues, along with the correct antibiotics based on her cultures. He will consult on the patient. I reviewed a prior Infectious Disease consultation and a culture from the acetabulum obtained during OR management, which showed MRSA. Vancomycin and Zosyn were recommended. The MRSA culture showed sensitivity to doxycycline, clindamycin, linezolid, moxifloxacin, tetracycline, Bactrim, and vancomycin. I discussed the case with Infectious Disease Dr. Gao. He stated that he and the [facility] physician spoke a week ago regarding this rash, and he recommended discontinuing rifampin, which was done, and continuing vancomycin, which has also been done. He recommends continuing vancomycin at this time, with a possible alternative of daptomycin, and continuing to omit rifampin, as this seems less likely to be a drug rash. I also discussed admission plans with the hospitalist. Lab Data Attestation: I reviewed the patient's lab results. Labs: Laboratory Results - last 24 hr 03/24/25 14:25 WBC 7.6 RBC 3.07 L Hgb 8.2 L Hct 27.1 L MCV 88.3 MCH 26.7 L MCHC 30.3 L RDW Std Deviation 58.4 H RDW Coeff of Aleena 18.5 H Plt Count 511 H MPV 7.7 Immature Gran % (Auto) 1.700 H Neut % (Auto) 54.2 Lymph % (Auto) 20.9 [place] % (Auto) 9.5 Eos % (Auto) 13.2 H Baso % (Auto) 0.5 Absolute Neuts (auto) 4.1 Absolute Lymphs (auto) 1.58 Nucleated RBC % 0 PT 16.7 H INR 1.3 APTT 38.4 H Sodium 134 Potassium 4.3 Chloride 104 Carbon Dioxide 23.5 Anion Gap 6 BUN 12 Creatinine 0.50 L Estim Creat Clear Calc 54.49 Est GFR (MDRD) Non-Af 93 BUN/Creatinine Ratio 24.5 H Glucose 101 H Lactic Acid < 1.0 Calcium 7.7 Total Bilirubin 0.33 AST 18 ALT < 5 Alkaline Phosphatase 63 Total Protein 5.7 L Albumin 2.6 L Globulin 3.2 Albumin/Globulin Ratio 0.8 L Radiography Diagnostic Testing: Clinical Impression(s) from Imaging Studies Chest X-Ray 03/24/25 14:00 IMPRESSION: PICC line through right upper extremity approach with the tip in the superior vena cava/right atrial junction. Low lung volumes with small right effusion and mild pulmonary venous congestion. Reading Location: [facility] Hip/Pelvis X-Ray 03/24/25 14:00 IMPRESSION: Prominent degenerative changes of the visualized lower lumbar spine again noted. Partially visualized left proximal femoral endoprosthesis with interlocking screw and extensive mature callus formation. No evidence of metallic fracture or screw loosening is seen in visualized areas. A proximal right femoral endoprosthesis is stable in alignment. No evidence of loosening or metallic fracture. No fracture site is seen. If clinical concern persists, short-term follow-up imaging may be obtained to rule out a currently occult fracture. Reading Location: [address] Rhythm Strip Rhythm Strip: Sinus Rhythm Rate: 60 Ectopy: None EKG Initial EKG: Attestation: I personally reviewed and interpreted this EKG as follows: Interpretation: Sinus Rhythm and No Acute Injury Pattern Comments: Nml axis & intervals; nml EKG Management Discussion w/another healthcare provider: Hospitalist and [employer] Teacher (JUSTEN Gao; Natalee Tijerina) Discharge Plan Dx/Rx/DC Orders Clinical Impression: Surgical site infection, Rash and nonspecific skin eruption, Chronic iron deficiency anemia, MRSA infection Disposition Disposition: [facility]
[2025-03-24 14:35] LABS: Hematocrit 27.1 % (37-47); Hemoglobin 8.2 g/dL (12.0-15.0); Immature Granulocytes Count 0.130 X10^3/uL (0.0-0.0); Mean Corp Hgb Conc 30.3 g/dL (32-36); Mean Corpuscular Volume 88.3 fL (81-99); Mean Platelet Vol. 7.7 fl (6.2-12.0); NRBC Flagged by Analyzer 0 % (0-5); Platelet Count 511 K/mm3 (150-450); RBC Distribution Width CV 18.5 % (11.6-14.6); RBC Distribution Width SD 58.4 fl (35.1-43.9); Red Blood Count 3.07 M/mm3 (4.2-5.4); White Blood Count 7.6 K/mm3 (4.4-11.0)
[2025-03-24 14:43] LABS: Prothrombin Time (Protime)PT. 16.7 SECONDS (11.7-14.9)
[2025-03-24 14:44] LABS: Partial Thromboplast Time 38.4 Seconds (24.1-36.2)
[2025-03-24 15:02] LABS: AST(SGOT) 18 U/L (<=31); Alanine Aminotransfer ALT/SGPT < 5 U/L (<=34); Albumin, Serum 2.6 g/dL (3.4-4.8); Alkaline Phosphatase 63 U/L (35-104); Anion Gap 6 (5-15); BUN 12 mg/dL (4-19); BUN/Creat Ratio 24.5 RATIO (10-20); Calcium,Total 7.7 mg/dL (7.6-11.0); Carbon Dioxide 23.5 mmol/L (21.0-32.0); Chloride 104 mmol/L (98-108); Estimated Creatinine Clearance 54.49 ml/min (50-250); Globulin 3.2 g/dL (2.2-4.2); Glucose 101 mg/dL (70-99); Potassium 4.3 mmol/L (3.3-5.1)
[2025-03-24] MEDS: 0.9% Normal Saline (1000mL) 1,000 ML 999 ML IV (15:05)
--- NOTE | 2025-03-24 16:34 | PCM.HP.STD ---
HPI - General General Date of Admission: 03/24/25 Date of Service: 03/24/25 HPI Narrative DAGOBERTO COHN is an 84 F who was admitted via the ED on 03/24/2025 with a complaint of possible right surgical site infection. She had a history of right hip surgery which was complicated by infection, requiring hardware removal, wound vanc placement and IV antibiotics- vancomycin and rifampin. [facility] was in the SNF on these meds and developed a rash over the right hip. The [facility] doctor discussed this with Dr. Gao of [place] and he recommended stopping the rifampin as there was concern that it was a drug rash. Wound VAC had also been removed. However her rash had persisted and patient subsequently complained of swelling and itching in her legs with associated pain and exacerbated by ambulation. She denied any shortness of breath, and also noticed some increased redness at the site of the right hip with some numbness also and swelling. She also complained of swelling and itching in her lower extremities. Review of systems otherwise negative. Vitals in the ED were blood pressure 132/59, pulse rate of 69, respiratory rate of 20 and she was saturating at 100% on room air. CBC showed hemoglobin of 8.2 with WBC of 7.6 and platelets of 511. INR is 1.3. Chemistry showed sodium of 134 with potassium of 4.3 and bicarb of 23. Urinalysis was pending at time of review. Chest x-ray showed evidence of PICC line in low left volumes with small right pleural effusion and mild pulmonary venous congestion. Hip and pelvic x-ray showed partially visualized left proximal femoral endoprosthesis with interlocking screw and extensive mature callus formation with a proximal right femoral endoprosthesis stable in alignment. She has been admitted to be managed for right hip surgical site infection. The ED doctor spoke to [place] who recommended that patient be continued on the vancomycin. [facility] Medical History Anemia MRSA (methicillin resistant staph aureus) culture positive Nocturia Urge incontinence Overactive bladder Former tobacco use Depression Hypertension Fall CHI (closed head injury) Presence of stent in coronary artery (~12/22/21) Atherosclerotic heart disease of creek coronary artery without angina pectoris ST elevation myocardial infarction (STEMI) of inferior wall (~12/22/21) Essential (primary) hypertension Parkinsons disease Urgency of urination Gout Cardiogenic shock Non-rheumatic mitral regurgitation Non-rheumatic tricuspid valve insufficiency Pulmonary hypertension Emphysema with chronic bronchitis Fibromyalgia Hyperlipidemia CAD (coronary artery disease) Bladder spasms Edema, lower extremity Myocardial infarction Home Medications ?Medication ?Instructions ?Recorded ?Last Taken ?Type acetaminophen 325 mg capsule 650 mg PO Q8H PRN fever or pain 05/01/23 04/29/23 History atorvastatin 40 mg tablet 40 mg PO QHS hYPERLIPIDEMIA 05/01/23 04/30/23 History polyethylene glycol 3350 17 17 g PO DAILY PRN constipation 05/01/23 05/01/23 History gram/dose oral powder (ClearLax) psyllium husk 3.4 gram/5.4 gram 1 tbsp PO DAILY PRN CONSTIPATION 05/01/23 04/30/23 History oral powder (Stacie-Mucil) alendronate 70 mg tablet 70 mg PO QWEEK osteoporosis 09/27/24 Unknown History duloxetine 20 mg capsule,delayed 20 mg PO QDAY DEPRESSION 09/27/24 Unknown History release guaifenesin 100 mg/5 mL oral liquid 200 mg PO Q4H PRN cough 12/28/24 Unknown History melatonin 3 mg capsule 3 mg PO HS sleep 12/28/24 Unknown History simethicone 125 mg chewable tablet 125 mg PO BID PRN abdominal 12/28/24 Unknown History (Mylanta Gas) distention ascorbic acid (vitamin C) 500 mg 500 mg PO BID supplement 01/20/25 Unknown History capsule carbidopa 25 mg-levodopa 100 mg 1.5 tab PO TID parkinson 01/20/25 Unknown History tablet (Dhivy) mirabegron 50 mg tablet,extended 50 mg PO DAILY bladder 01/20/25 Unknown History release 24 hr (Myrbetriq) acetaminophen 500 mg tablet 500 mg PO Q8H PRN pain 02/15/25 Unknown History (Tylenol Extra Strength) ferrous sulfate 325 mg (65 mg 325 mg PO BID ANEMIA 02/15/25 Unknown History iron) tablet (FeroSul) acetaminophen 500 mg capsule 500 mg PO TID PAIN 02/28/25 Unknown History aluminum-mag hydroxide-simethicone 10 ml PO Q4H PRN indigestion, GAS, 02/28/25 Unknown History 400 mg-400 mg-40 mg/5 mL oral susp HEARTBURN, NAUSEA (Advanced Antacid-[place]igas) aspirin 81 mg tablet,delayed 81 mg PO BREAKFAST ANTICOAGULANT 02/28/25 Unknown History release ceramides 1,3,6-II (CeraVe Daily 1 applic topical DAILY DRY SKIN 02/28/25 Unknown History Moisturizing lotion) cholecalciferol (vitamin D3) 50 50 mcg PO DAILY SUPPLEMENT 02/28/25 Unknown History mcg (2,000 unit) capsule (D3-2000) cyanocobalamin (vitamin B-12) 500 500 mcg PO DAILY ANEMIA 02/28/25 Unknown History mcg tablet (Vitamin B-12) rifampin 300 mg capsule 300 mg PO Q12H unknown 90 days 03/03/25 Unknown Rx #180 caps vancomycin 750 mg intravenous 750 mg IV Q12H infection 40 days 03/03/25 Unknown Rx solution #80 ea metoprolol tartrate 25 mg tablet 25 mg PO BID hypertension #0 tabs 03/05/25 Unknown Rx Allergy/AdvReac Type Severity Reaction Status Date / Time oxycodone (From Percocet) Allergy Severe Hives Verified 03/24/25 13:16 Family History Father Heart disease Surgical History History 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 alcohol intake: current alcohol intake frequency: holidays/special occasions only substance use type: does not use caffeine: Yes Type: coffee Number of servings: 2 ROS Constitutional Constitutional: Denies anorexia, chills, fatigue, fever(s), malaise or weakness Eyes Eyes: Denies change in vision ENT HEENT: Denies dysphagia, headache(s) or sore throat Cardiovascular Cardiovascular: Denies chest pain, dyspnea on exertion, edema, lightheadedness, orthopnea, palpitations, rapid heart rate or syncope Respiratory/Chest Respiratory/Chest: Denies cough, dyspnea, productive cough, shortness of breath at rest or shortness of breath with exertion Gastrointestinal Gastrointestinal: Denies abdominal pain, diarrhea, dyspepsia, nausea or vomiting Genitourinary Genitourinary: Denies burning urination or dysuria Musculoskeletal Musculoskeletal: Denies back pain Neurologic Neurologic: Denies confusion, dizziness, focal weakness, headache(s), numbness, seizures or syncope Psychiatric Psychiatric: Denies anxiety or depression Vital Signs Vital Signs Vital Signs: 03/24/25 13:14 03/24/25 13:16 03/24/25 15:13 Temperature 98.7 F 98.7 F Temperature Source Temporal Oral Pulse Rate 61 61 69 Respiratory Rate 19 H 20 H 20 H Blood Pressure 95/49 L 107/64 132/59 H Blood Pressure Mean 64 78 83 Pulse Ox 100 100 Oxygen Delivery Method Room Air Room Air Room Air Weight Weight: 191 lb 5.78 oz Body Mass Index (BMI) 34.9 Physical Exam Const alert, oriented x3 and no apparent distress General Appearance: cooperative HEENT normocephalic, head/scalp atraumatic, hearing grossly normal bilaterally, moist oral mucous membranes and oropharynx normal Mouth: oral and palatal mucosa normal Eyes EOMs intact bilaterally and conjunctivae normal Neck supple and no JVD Resp normal respiratory effort, no retractions, no use of accessory muscles and clear to auscultation bilaterally Cardio regular rate, regular rhythm, S1 normal heart sound, S2 normal heart sound and no murmurs GI normal to inspection, nondistended, normoactive bowel sounds, soft to palpation, non-tender and non-distended Extremity normal to inspection, full ROM and no clubbing, cyanosis or edema Skin Skin Narrative: skin on face and upper torso is jackson, with bluish tinge (due to ingestion of silver water about 30 years ago). Lower extremities have an erythematous papular rash over ankles and sumnre, nonblanchable. Pruritic. Neuro oriented x3 and moves all extremities Sensorium / Orientation: awake and alert Motor Exam: strength 5/5 throughout Results Lab / Micro Data 03/24/25 14:25 03/24/25 14:25 Labs: Laboratory Results - last 24 hr 03/24/25 14:25: WBC 7.6, RBC 3.07 L, Hgb 8.2 L, Hct 27.1 L, MCV 88.3, MCH 26.7 L, MCHC 30.3 L, RDW Std Deviation 58.4 H, RDW Coeff of Aleena 18.5 H, Plt Count 511 H, MPV 7.7, Immature Gran % (Auto) 1.700 H, Neut % (Auto) 54.2, Lymph % (Auto) 20.9, [place] % (Auto) 9.5, Eos % (Auto) 13.2 H, Baso % (Auto) 0.5, Absolute Neuts (auto) 4.1, Absolute Lymphs (auto) 1.58, Nucleated RBC % 0, PT 16.7 H, INR 1.3, APTT 38.4 H, Sodium 134, Potassium 4.3, Chloride 104, Carbon Dioxide 23.5, Anion Gap 6, BUN 12, Creatinine 0.50 L, Estim Creat Clear Calc 54.49, Est GFR (MDRD) Non-Af 93, BUN/Creatinine Ratio 24.5 H, Glucose 101 H, Lactic Acid < 1.0, Calcium 7.7, Total Bilirubin 0.33, AST 18, ALT < 5, Alkaline Phosphatase 63, Total Protein 5.7 L, Albumin 2.6 L, Globulin 3.2, Albumin/Globulin Ratio 0.8 L Rhythm Strip Rhythm Strip: Sinus Rhythm Rate: 60 Ectopy: None Imaging Radiology Impression Chest X-Ray 03/24/25 14:00 IMPRESSION: PICC line through right upper extremity approach with the tip in the superior vena cava/right atrial junction. Low lung volumes with small right effusion and mild pulmonary venous congestion. Reading Location: [facility] Hip/Pelvis X-Ray 03/24/25 14:00 IMPRESSION: Prominent degenerative changes of the visualized lower lumbar spine again noted. Partially visualized left proximal femoral endoprosthesis with interlocking screw and extensive mature callus formation. No evidence of metallic fracture or screw loosening is seen in visualized areas. A proximal right femoral endoprosthesis is stable in alignment. No evidence of loosening or metallic fracture. No fracture site is seen. If clinical concern persists, short-term follow-up imaging may be obtained to rule out a currently occult fracture. Reading Location: [address] Assessment & Plan Assessment/Plan (1) MRSA infection: (2) Rash and nonspecific skin eruption: (3) Infection and inflammatory reaction due to internal right hip prosthesis, initial encounter: PLAN: Plan #Recurrent right hip surgical site infection Admit to [facility]. Patient admitted with a complaint of rash over her right hip. He had open reduction internal fixation of right hip fracture on 01/20/2025 and this was complicated by postop infection with removal of the prosthesis and wound VAC placement. Wound VAC is now being removed. She was on IV vancomycin and rifampin. She developed a rash over the surgical site and so rifampin was stopped about a week ago per ID. Rash has persisted and so she was brought into the ED. WBC is not elevated and imaging done showed partially visualized left proximal femoral endoprosthesis with interlocking screw and extensive mature callus formation with no evidence of loosening or metallic fracture. Admitted to [facility]. ED doctor spoke to [place] who recommended patient continuing on IV vancomycin. consult ID and orthopedic surgery PO tylenol, PO oxycodone and IV morphine prn for pain PT/OT consult fall precautions get wound cultures; previous wound cultures grew MRSA On IV vancomycin 750 mg every 12 hours.. Will continue on this dose. # CAD s/p stents: On aspirin and high intensity statin #History of Parkinson's disease: on levodopa/carbidopa #Benign essential hypertension: on metoprolol. IV hydralazine as needed #History of argyria Skin on face and upper torso is carl with bluish tinge. She states this is due to ingestion of silver water about 30 years ago and the recommendation of a dietitian to help with her fibromyalgia. Stable. DVT prophylaxis: Lovenox Code status: DNRCCA no intubation Patient counseled extensively about different types of CODE STATUS including full code, DNR CCA and DNR CCA. Patient elects to be DNRCCA and has paperwork from her SNF. Charges/Coding Visit Charges Inpatient E&M: 50551 Init Hosp L2
[2025-03-24 16:37] LABS: Mucous, Urine 0 SEEN /hpf (<or=2+)
--- OUTSIDE RECORDS SUMMARY | 2025-03-24 17:28 | XMS RPT_ITS | CCD ---
Author Organization [facility] Care Team Providers Care Journalism Professor Name Role Phone Unavailable Primary Care Provider Minesh Arreguin SYSTEM PROGRAMMER.CASE PACKER, Alexandra L Primary Care Provide r Rodríguez BEHAVIORAL HEALTH TECH, BEHAVIORAL HEALTH TECH-C Alexandra Primary Care Provider Rodríguez BEHAVIORAL HEALTH TECH, BEHAVIORAL HEALTH TECH-C Alexandra Referring Provider [phone] Dr. Danielle Vernon Attending Provider Dr. Law Gold Emergency Provider Dr. Jasmin Steele Admit Provider Dr. Jasmin Steele Other Provider Dr. Davian Grier Other Provider Dr. Darline Lundy Attending Provider Dr. Darline Lundy Other Provider Dr. Jaylon Boone Attending Provider Rodríguez BEHAVIORAL HEALTH TECH, BEHAVIORAL HEALTH TECH-C Alexandra Primary Care Provider Dr. Law Gold Emergency Provider Dr. Jasmin Steele Admit Provider Dr. Jasmin Steele Other Provider Dr. Davian Grier Other Provider Dr. Darline Lundy Attending Provider Dr. Darline Lundy Other Provider Dr. Jaylon Boone Attending Provider Rodríguez STEWART.CASE PACKER, Alexandra L Primary Care Provide r TAI, DIDI Referring Unavailable ARREGUIN, ALEXANDRA L Primary Care Unavailable TAI, DIDI Referring Unavailable ARREGUIN, ALEXANDRA L Primary Care Unavailable TAI, DIDI Referring Unavailable ARREGUIN, ALEXANDRA L Primary Care Unavailable PROVIDER, UNKNOWN Referring Unavailable ARREGUIN, ALEXANDRA L Primary Care Unavailable Arreguin BEHAVIORAL HEALTH TECH-C, Alexandra Primary Care Provider Arreguin BEHAVIORAL HEALTH TECH-C, Alexandra Referring Provider Saulo DEL RIO, Dr. Santos Attending Provider Tai BEHAVIORAL HEALTH TECH-C, Didi Attending Provider Tai BEHAVIORAL HEALTH TECH-C, Didi Referring Provider Bobby OLS, [facility] Primary Care Provider Shavonne vailable Tai BEHAVIORAL HEALTH TECH-C, Didi Attending Provider Tai BEHAVIORAL HEALTH TECH-C, Didi Referring Provider Bobby OLS, Tressa Primary Care Provider Shavonne vailable Bobby HALL, [facility] Referring Provider Dr. Danielle Arciniega MD Attending Provider Bobby HALL, Tressa Primary Care Provider Shavonne vailaDr. Danielle Phillips MD Referring Provider Dr. Danielle Vernon MD Other Provider Bobby HALL [facility] Primary Care Physician Un available Sauol DEL RIO, Dr. Santos Attending Physician Dr. [...] Lilliana DEL RIO, Dr. Ramsey Nurse Practitioner [phone] Robin DEL RIO, Dr. Davian Richards Attending Physician Kamron DEL RIO, Dr. Gregorio Nurse Practitioner [phone] Martel DO, Dr. Rothman Attending Physician Shavonne vailable Robin DEL RIO, Dr. Davian Richards Nurse Practitioner Davian Kelly Attending Unavailable Braulio Tijerina Consulting Unavailable Bobby OLS, Tressa Primary Care Unavailab Stephan Urrutia Admitting Unavailable Stephan Martel Consulting Unavailable Darline Lundy Consulting Unavailable Davian Kelly Consulting Unavailable Tai BEHAVIORAL HEALTH TECH, Didi Referring Unavailable Tai BEHAVIORAL HEALTH TECH, Didi Attending Unavailable Bobby OLS, Tressa Primary [...] Prado Attending Unavailable SauloDanielle Attending Unavailable Rodríguez BEHAVIORAL HEALTH TECH, Alexandra Primary Care Unavailable Rodríguez BEHAVIORAL HEALTH TECH, Alexandra Referring Unavailable Danielle Vernon Attending Unavailable Bobby OLS, Tressa Referring Unavailab le Bobby OLS, Tressa Primary Care Unavailab le Bobby OLS, Tressa Referring Unavailab le Bobby OLS, Tressa Primary Care Unavailab Alexandria Prado Attending Unavailable Stephan Martel Attending Unavailable SauloDanielle Attending Unavailable Bobby OLS, Tressa Primary [facility] Unavailab le Danielle Vernon Consulting Unavailable Danielle Vernon Referring Unavailable Danielle Vernon Attending Unavailable Tressa Alan Primary [facility] Unavailab le Allergies Allergy Classification Reported Allergen(s) Allergy Type Date of Onset Reaction(s) Facility Acetaminophen / oxyCODONE (1 source) Acetaminophen / oxyCODONE; Translations: [OXYCODONE-ACETAM INOPHEN] Drug Allergy 3 [facility] Repository (20 sources) Acetaminophen / oxyCODONE; Translations: [OXYCODONE-ACETAM INOPHEN] Drug Allergy 3 Rash, Itching [facility] (8 sources) oxyCODONE Drug Allergy 3 [facility] (4 sources) ARIPiprazole; Translations: [ARIPIPRAZOLE] Drug Allergy 5 [facility] (4 sources) Haloperidol; Translations: [HALOPERIDOL] Drug Allergy 5 [facility] (4 sources) Metoclopramide; Translations: [METOCLOPRAMIDE] Drug Allergy 5 [facility] (4 sources) Prochlorperazine; Translations: [PROCHLORPERAZINE ] Drug Allergy 5 [facility] (4 sources) Promethazine; Translations: [PROMETHAZINE] Drug Allergy 5 [facility] (1 source) OLANZapine; Translations: [OLANZAPINE] Drug Allergy 5 [facility] Repository (1 source) oxyCODONE Drug Allergy 5 [facility] Rep[facility] Medications Current Medications Medication Drug Class(es) [...] Start: 01-20-2025 take 1 capsule by mo [facility] once daily Start: 05-01-2023 End: 03-16-2024 take 1 tablet by mouth twice daily Ascorbic Acid (Vitamin C) (C-500) 500 mg tablet Discontinued 500 mg PO TWICE A DAY May 01, 2023 1:00am March 16, 2024 10:31am Comment on above: [facility] aspirin 81 [...] Start: 12-29-2022 take 2 tablets by mo [facility] three times daily Carbidopa-Levodopa Active 2 TABLET [...] Comment on above: Take 1 tablet by [facility] four times daily. Take 4 [...] Start: 01-20-2025 take 1 capsule by mo [facility] once daily Start: 12-28-2024 End: 01-20-2025 Mecobalamin [...] 11:21am docusate sodium 50 mg / sennosides, jail 8.6 mg oral tablet (19 sources) Start: [...] reveals residual T wave inversion from recent [place] Coronary atherosclerosis and other heart disease (20 sources) Coronary arteriosclerosis; Translations: [Atherosclerotic heart disease of [place] coronary artery without angina pectoris] Onset: 07-31-2022 10-09-2022 Chronic Coronary atherosclerosis and other heart disease (20 sources) Stented coronary artery; Translations: [Presence of coronary angioplasty implant and graft] Onset: 12-12-2021 07-25-2022 Episodic Comment on above: PTCA/FLOYD Mid-distal RCA-PCI/FLOYD 2.28y07cn @ [facility] 12/22/21; Prox/distal RCA 2.5x30mm and 2.5x12mm @ [facility], [place] 12/20/09 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 Alexandria Lion i, MD Age/Sex: 84/F Location: [facility] Status: Signed Intake Vital Signs 12/28/24 13:11 01/20/25 01:17 02/15/25 09:47 Height 5 ft 2 in 5 ft 2 in 5 ft 2 in Weight: 166 lb 14 oz BMI 30.5 BP 130/75 H Pulse 75 Intake Visit Reasons: 4wk MED F/U Chief Complaint: myrbetriq follow up Container Washer Required: No Accompanied by: health aid Is [...] is afraid to stand on her own. 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 Normal [facility] Basic Metabolic Profile (BMP )on 01-27-2025 BUN Normal 07-30 [facility] Comment on above: Result Comment: Supa eubanks via OM: Ordered Performed By: #### L 503.0106, BTS, L500.4050, L100.0100, L501.9520 #### [facility] [address] [place], [address] BUN/CRE Normal 01-30 [facility] Comment on above: Result Comment: Supa eubanks via OM: Ordered Performed By: #### L 503.0106, BTS, L500.4050, L100.0100, L501.9520 #### [facility] [address] [place], [address] Calcium Normal 7.6-11.0 [facility] Comment on above: Result Comment: Canc elled via OM: MD Ordered Performed By: #### L 503.0106, BTS, L500.4050, L100.0100, L501.9520 #### [facility] [address] [place], [address] CL Normal 98-108 [facility] Comment on above: Result Comment: Canc elled via OM: MD Ordered Performed By: #### L 503.0106, BTS, L500.4050, L100.0100, L501.9520 #### [facility] [address] [place], [address] CO2 Normal 21.0-32.0 [facility] Comment on above: Result Comment: Canc elled via OM: MD Ordered Performed By: #### L 503.0106, BTS, L500.4050, L100.0100, L501.9520 #### [facility] [address] [place], [address] CREAT,SERUM Normal 0.70-1.20 [facility] Comment on above: Result Comment: Canc elled via OM: MD Ordered Performed By: #### L 503.0106, BTS, L500.4050, L100.0100, L501.9520 #### [facility] [address] [place], [address] eGFR Normal >60 [facility] Comment on above: Result Comment: Canc elled via OM: MD Ordered Performed By: #### L 503.0106, BTS, L500.4050, L100.0100, L501.9520 #### [facility] [address] [place], [address] GAP Normal 5-15 [facility] Comment on above: Result Comment: Canc elled via OM: MD Ordered Performed By: #### L 503.0106, BTS, L500.4050, L100.0100, L501.9520 #### [facility] [address] [place], [address] GLU Normal 70-99 [facility] Comment on above: Result Comment: Canc elled via OM: MD Ordered Performed By: #### L 503.0106, BTS, L500.4050, L100.0100, L501.9520 #### [facility] [address] [place], [address] Potassium Normal 3.3-5.1 [facility] Comment on above: Result Comment: Canc elled via OM: MD Ordered Performed By: #### L 503.0106, BTS, L500.4050, L100.0100, L501.9520 #### [facility] [address] [place], [address] Basic Metabolic Profile (BMP) Normal 133-145 [facility] Comment on above: Result Comment: Canc elled via OM: MD Ordered Performed By: #### L 503.0106, BTS, L500.4050, L100.0100, L501.9520 #### [facility] [address] [place], [address] CBC-Complete Blood Cnt No Di ffon 01-27-2025 HCT Normal 37-47 [facility] Comment on above: Result Comment: Canc elled via OM: Order cancelled - Patient discharged Performed By: #### L 503.0106, BTS, L500.4050, L100.0100, L501.9520 #### [facility] [address] [place], [address] HGB Normal 12.0-15.0 [facility] Comment on above: Result Comment: Canc elled via OM: Order cancelled - Patient discharged Performed By: #### L 503.0106, BTS, L500.4050, L100.0100, L501.9520 #### [facility] [address] [place], [address] MCH Normal 27.0-32.0 [facility] Comment on above: Result Comment: Canc elled via OM: Order cancelled - Patient discharged Performed By: #### L 503.0106, BTS, L500.4050, L100.0100, L501.9520 #### [facility] [address] [place], [address] MCHC Normal 32-36 [facility] Comment on above: Result Comment: Canc elled via OM: Order cancelled - Patient discharged Performed By: #### L 503.0106, BTS, L500.4050, L100.0100, L501.9520 #### [facility] [address] [place], [address] MCV Normal 81-99 [facility] Comment on above: Result Comment: Canc elled via OM: Order cancelled - Patient discharged Performed By: #### L 503.0106, BTS, L500.4050, L100.0100, L501.9520 #### [facility] [address] [place], [address] PLT Normal 150-450 [facility] Comment on above: Result Comment: Canc elled via OM: Order cancelled - Patient discharged Performed By: #### L 503.0106, BTS, L500.4050, L100.0100, L501.9520 #### [facility] [address] [place], [address] RBC Normal 4.2-5.4 [facility] Comment on above: Result Comment: Canc elled via OM: Order cancelled - Patient discharged Performed By: #### L 503.0106, BTS, L500.4050, L100.0100, L501.9520 #### [facility] [address] [place], [address] RDW CV Normal 11.6-14.6 [facility] Comment on above: Result Comment: Canc elled via OM: Order cancelled - Patient discharged Performed By: #### L 503.0106, BTS, L500.4050, L100.0100, L501.9520 #### [facility] [address] [place], [address] RDW SD Normal 35.1-43.9 [facility] Comment on above: Result Comment: Canc elled via OM: Order cancelled - Patient discharged Performed By: #### L 503.0106, BTS, L500.4050, L100.0100, L501.9520 #### [facility] [address] [place], [address] WBC Normal 4.4-11.0 [facility] Comment on above: Result Comment: Canc elled via OM: Order cancelled - Patient discharged Performed By: #### L 503.0106, BTS, L500.4050, L100.0100, L501.9520 #### [facility] [address] [place], [address] Surgical pathology reportOrd ered By: Debbei Corea on 01-27-2025 Surgical pathology study [facility] Basic Metabolic Profile (BMP )on 01-26-2025 BUN Normal 4-19 [facility] Comment on above: Result Comment: Canc elled via OM: MD Ordered Performed By: #### L 503.0106, BTS, L500.4050, L100.0100, L501.9520 #### [facility] [address] [place], [address] BUN/CRE Normal 10-20 [facility] Comment on above: Result Comment: Canc elled via OM: MD Ordered Performed By: #### L 503.0106, BTS, L500.4050, L100.0100, L501.9520 #### [facility] [address] [place], [address] Calcium Normal 7.6-11.0 [facility] Comment on above: Result Comment: Canc elled via OM: MD Ordered Performed By: #### L 503.0106, BTS, L500.4050, L100.0100, L501.9520 #### [facility] [address] [place], [address] CL Normal 98-108 [facility] Comment on above: Result Comment: Canc elled via OM: MD Ordered Performed By: #### L 503.0106, BTS, L500.4050, L100.0100, L501.9520 #### [facility] [address] [place], [address] CO2 Normal 21.0-32.0 [facility] Comment on above: Result Comment: Canc elled via OM: MD Ordered Performed By: #### L 503.0106, BTS, L500.4050, L100.0100, L501.9520 #### [facility] [address] [place], [address] CREAT,SERUM Normal 0.70-1.20 [facility] Comment on above: Result Comment: Canc elled via OM: MD Ordered Performed By: #### L 503.0106, BTS, L500.4050, L100.0100, L501.9520 #### [facility] [address] [place], [address] eGFR Normal >60 [facility] Comment on above: Result Comment: Canc elled via OM: MD Ordered Performed By: #### L 503.0106, BTS, L500.4050, L100.0100, L501.9520 #### [facility] [address] [place], [address] GAP Normal 5-15 [facility] Comment on above: Result Comment: Canc elled via OM: MD Ordered Performed By: #### L 503.0106, BTS, L500.4050, L100.0100, L501.9520 #### [facility] [address] [place], [address] GLU Normal 70-99 [facility] Comment on above: Result Comment: Canc elled via OM: MD Ordered Performed By: #### L 503.0106, BTS, L500.4050, L100.0100, L501.9520 #### [facility] [address] [place], [address] Potassium Normal 3.3-5.1 [facility] Comment on above: Result Comment: Canc elled via OM: MD Ordered Performed By: #### L 503.0106, BTS, L500.4050, L100.0100, L501.9520 #### [facility] [address] [place], [address] Basic Metabolic Profile (BMP) Normal 133-145 [facility] Comment on above: Result Comment: Canc elled via OM: MD Ordered Performed By: #### L 503.0106, BTS, L500.4050, L100.0100, L501.9520 #### [facility] [address] [place], [address] CBC-Complete Blood Cnt No Di ffon 01-26-2025 HCT Normal 37-47 [facility] Comment on above: Result Comment: Canc elled via OM: Order cancelled - Patient discharged Performed By: #### L 503.0106, BTS, L500.4050, L100.0100, L501.9520 #### [facility] [address] [place], [address] HGB Normal 12.0-15.0 [facility] Comment on above: Result Comment: Canc elled via OM: Order cancelled - Patient discharged Performed By: #### L 503.0106, BTS, L500.4050, L100.0100, L501.9520 #### [facility] [address] [place], [address] MCH Normal 27.0-32.0 [facility] Comment on above: Result Comment: Canc elled via OM: Order cancelled - Patient discharged Performed By: #### L 503.0106, BTS, L500.4050, L100.0100, L501.9520 #### [facility] [address] [place], [address] MCHC Normal 32-36 [facility] Comment on above: Result Comment: Canc elled via OM: Order cancelled - Patient discharged Performed By: #### L 503.0106, BTS, L500.4050, L100.0100, L501.9520 #### [facility] [address] [place], [address] MCV Normal 81-99 [facility] Comment on above: Result Comment: Canc elled via OM: Order cancelled - Patient discharged Performed By: #### L 503.0106, BTS, L500.4050, L100.0100, L501.9520 #### [facility] [address] [place], [address] PLT Normal 150-450 [facility] Comment on above: Result Comment: Canc elled via OM: Order cancelled - Patient discharged Performed By: #### L 503.0106, BTS, L500.4050, L100.0100, L501.9520 #### [facility] [address] [place], [address] RBC Normal 4.2-5.4 [facility] Comment on above: Result Comment: Canc elled via OM: Order cancelled - Patient discharged Performed By: #### L 503.0106, BTS, L500.4050, L100.0100, L501.9520 #### [facility] [address] [place], [address] RDW CV Normal 11.6-14.6 [facility] Comment on above: Result Comment: Canc elled via OM: Order cancelled - Patient discharged Performed By: #### L 503.0106, BTS, L500.4050, L100.0100, L501.9520 #### [facility] [address] [place], [address] RDW SD Normal 35.1-43.9 [facility] Comment on above: Result Comment: Canc elled via OM: Order cancelled - Patient discharged Performed By: #### L 503.0106, BTS, L500.4050, L100.0100, L501.9520 #### [facility] [address] [place], [address] WBC Normal 4.4-11.0 [facility] Comment on above: Result Comment: Canc elled via OM: Order cancelled - Patient discharged Performed By: #### L 503.0106, BTS, L500.4050, L100.0100, L501.9520 #### [facility] [address] [place], [address] Basic Metabolic Profile (BMP )on 01-25-2025 BUN Normal -19 [facility] Comment on above: Result Comment: Canc elled via OM: MD Ordered Performed By: #### L 500.2500, L100.0500 #### [facility] [address] [place], [address] BUN/CRE Normal - [facility] Comment on above: Result Comment: Canc elled via OM: MD Ordered Performed By: #### L 500.2500, L100.0500 #### [facility] [address] [place], [address] Calcium Normal 7.6-11.0 [facility] Comment on above: Result Comment: Canc elled via OM: MD Ordered Performed By: #### L 500.2500, L100.0500 #### [facility] [address] [place], [address] CL Normal 98-108 [facility] Comment on above: Result Comment: Canc elled via OM: MD Ordered Performed By: #### L 500.2500, L100.0500 #### [facility] [address] [place], [address] CO2 Normal 21.0-32.0 [facility] Comment on above: Result Comment: Canc elled via OM: MD Ordered Performed By: #### L 500.2500, L100.0500 #### [facility] [address] [place], [address] CREAT,SERUM Normal 0.70-1.20 [facility] Comment on above: Result Comment: Canc elled via OM: MD Ordered Performed By: #### L 500.2500, L100.0500 #### [facility] [address] [place], [address] eGFR Normal >60 [facility] Comment on above: Result Comment: Canc elled via OM: MD Ordered Performed By: #### L 500.2500, L100.0500 #### [facility] [address] [place], [address] GAP Normal 5-15 [facility] Comment on above: Result Comment: Canc elled via OM: MD Ordered Performed By: #### L 500.2500, L100.0500 #### [facility] [address] [place], [address] GLU Normal 70-99 [facility] Comment on above: Result Comment: Canc elled via OM: MD Ordered Performed By: #### L 500.2500, L100.0500 #### [facility] [address] [place], [address] Potassium Normal 3.3-5.1 [facility] Comment on above: Result Comment: Canc elled via OM: MD Ordered Performed By: #### L 500.2500, L100.0500 #### [facility] [address] [place], [address] Basic Metabolic Profile (BMP) Normal 133-145 [facility] Comment on above: Result Comment: Canc elled via OM: MD Ordered Performed By: #### L 500.2500, L100.0500 #### [facility] [address] [place], [address] CBC-Complete Blood Cnt No Di ffon 01-25-2025 Erythrocyte distribution width (RBC) [Ratio] 13.2 % Normal 11.6-14.6 [facility] Comment on above: Performed By: #### L 500.2500, L100.0500 #### [facility] [address] [place], [address] Hematocrit (Bld) [Volume fraction] 24.9 % Low 37-47 [facility] Comment on above: Performed By: #### L 500.2500, L100.0500 #### [facility] [address] [place], [address] Hemoglobin (Bld) [Mass/Vol] 8.4 g/dL Low 12.0-15.0 [facility] Comment on above: Performed By: #### L 500.2500, L100.0500 #### [facility] [address] [place], [address] MCH (RBC) [Entitic mass] 27.9 pg Normal 27.0-32.0 [facility] Comment on above: Performed By: #### L 500.2500, L100.0500 #### [facility] [address] [place], [address] MCHC (RBC) [Mass/Vol] 33.7 g/dL Normal 32-36 [facility] Comment on above: Performed By: #### L 500.2500, L100.0500 #### [facility] [address] [place], [address] MCV (RBC) [Entitic vol] 82.7 fL Normal 81-99 [facility] Comment on above: Performed By: #### L 500.2500, L100.0500 #### [facility] [address] [place], [address] Platelet mean volume (Bld) [Entitic vol] 8.7 fL Normal 6.2-12.0 [facility] Comment on above: Performed By: #### L 500.2500, L100.0500 #### [facility] [address] [place], [address] Platelets (Bld) [#/Vol] 362 10*3/uL Normal 150-450 [facility] Comment on above: Performed By: #### L 500.2500, L100.0500 #### [facility] [address] [place], [address] RBC (Bld) [#/Vol] 3.01 10*6/uL Low 4.2-5.4 [facility] Comment on above: Performed By: #### L 500.2500, L100.0500 #### [facility] [address] [place], [address] RDW SD 40.2 fl Normal 35.1-43.9 [facility] Comment on above: Performed By: #### L 500.2500, L100.0500 #### [facility] [address] [place], [address] WBC (Bld) [#/Vol] 8.6 10*3/uL Normal 4.4-11.0 [facility] Comment on above: Performed By: #### L 500.2500, L100.0500 #### [facility] [address] [place], [address] COVID 19 AG RAPID (AUGUSTIN Carlson)on 01-25-2025 SARS-CoV-2 (COVID-19) RNA DESHAUN+probe Ql (Unsp spec) SARS-CoV-2 (COVID 19) Negative RAPID METHOD BinaxNow COVID19 Ag Card Normal [facility] Comment on above: Performed By: #### L 503.0106, BTS, L500.4050, L100.0100, L501.9520 #### [facility] [address] [place], [place], [id number] COVID-19 virus antigen assay Ordered By: Davian Kelly on 01-25-2025 SARS-CoV-2 (COVID-19) Ag IA.rapid Ql (Resp) [facility] Erythrocyte distribution wid th ratioOrdered By: Darline Lundy on 01-25-2025 Erythrocyte distribution width (RBC) [Ratio] 13.2 % 11.6-14.6 [facility] Erythrocyte distribution wid th standard deviationOrdered By: Darline Lundy on 01-25-2025 Erythrocyte distribution width (RBC) [Ratio] 40.2 fl 35.1-43.9 [facility] Hematocrit Auto (Bld) [Volum e fraction]Ordered By: Darline Lundy on 01-25-2025 Hematocrit (Bld) [Volume fraction] 24.9 % Low 37-47 [facility] Hemoglobin measurementOrdere d By: Darline Lundy on 01-25-2025 Hemoglobin (Bld) [Mass/Vol] 8.4 g/dL Low 12.0-15.0 [facility] MCV (mean corpuscular volume ) determinationOrdered By: Darline Lundy on 01-25-2025 MCV (RBC) [Entitic vol] 82.7 fL 81-99 [facility] Mean corpuscular hemoglobin (MCH) determinationOrdered By: Darline Lundy on 01-25-2025 MCH (RBC) [Entitic mass] 27.9 pg 27.0-32.0 [facility] Mean corpuscular hemoglobin concentration (MCHC) determinationOrdered By: Darline Lundy on 01-25-2025 MCHC (RBC) [Mass/Vol] 33.7 g/dL 32-36 [facility] Mean platelet volume determi nationOrdered By: Darline Lundy on 01-25-2025 Platelet mean volume (Bld) [Entitic vol] 8.7 fL 6.2-12.0 [facility] Platelet countOrdered By: Luiz Lundy on 01-25-2025 Platelets (Bld) [#/Vol] 362 10*3/uL 150-450 [facility] RBC Auto (Bld) [#/Vol]Ordere d By: Darline Lundy on 01-25-2025 RBC (Bld) [#/Vol] 3.01 10*6/uL Low 4.2-5.4 [facility] White blood cell (WBC) count Ordered By: Darline Lundy on 01-25-2025 WBC (Bld) [#/Vol] 8.6 10*3/uL 4.4-11.0 [facility] Anion gap in Serum or Plasma Ordered By: Darline Lundy on 01-24-2025 Anion gap [Moles/Vol] 9 mmol/L 08-25 [facility] BUN/creatinine ratioOrdered By: Darline Lundy on 01-24-2025 Urea nitrogen/Creatinine [Mass ratio] 28.0 mg/mg High 01-30 [facility] Basic Metabolic Profile (BMP )on 01-24-2025 BUN/CRE 28.0 RATIO High 01-30 [facility] Comment on above: Performed By: #### L 503.0106, BTS, L500.4050, L100.0100, L501.9520 #### [facility] [address] [place], [address] Calcium [Mass/Vol] 8.4 mg/dL Normal 7.6-11.0 [facility] Comment on above: Performed By: #### L 503.0106, BTS, L500.4050, L100.0100, L501.9520 #### [facility] [address] [place], [address] Chloride [Moles/Vol] 103 mmol/L Normal 98-108 [facility] Comment on above: Performed By: #### L 503.0106, BTS, L500.4050, L100.0100, L501.9520 #### [facility] [address] [place], [address] CO2 [Moles/Vol] 24.5 mmol/L Normal 21.0-32.0 [facility] Comment on above: Performed By: #### L 503.0106, BTS, L500.4050, L100.0100, [id number] #### [facility] [address] [place], [address] Creatinine [Mass/Vol] 0.68 mg/dL Low 0.70-1.20 [facility] Comment on above: Performed By: #### L 503.0106, BTS, L500.4050, L100.0100, [id number] #### [facility] [address] [place], [address] ECRCL 49.12 ml/min Low 50-250 [facility] Comment on above: Performed By: #### L 503.0106, BTS, L500.4050, L100.0100, [id number] #### [facility] [address] [place], [address] GAP 9 Normal 5-15 [facility] Comment on above: Performed By: #### L 503.0106, BTS, L500.4050, L100.0100, L501.9520 #### [facility] [address] [place], [address] GFR/1.73 sq M.predicted among non-blacks MDRD (S/P/Bld) [Vol rate/Area] 86 mL/min/{1.73_m2} Normal >60 [facility] Comment on above: Result Comment: mL/m in/1.73m2 CKD-EPI Creatinine Equation (2020) Performed By: #### L 503.0106, BTS, L500.4050, L100.0100, L501.9520 #### [facility] [address] [place], [address] Glucose [Mass/Vol] 97 mg/dL Normal 70-99 [facility] Comment on above: Performed By: #### L 503.0106, BTS, L500.4050, L100.0100, [id number] #### [facility] [address] [place], [address] Potassium [Moles/Vol] 3.9 mmol/L Normal 3.3-5.1 [facility] Comment on above: Performed By: #### L 503.0106, BTS, L500.4050, L100.0100, L501.9520 #### [facility] [address] [place], [address] Sodium [Moles/Vol] 136 mmol/L Normal 133-145 [facility] Comment on above: Performed By: #### L 503.0106, BTS, L500.4050, L100.0100, [id number] #### [facility] [address] [place], [address] Urea nitrogen [Mass/Vol] 19 mg/dL Normal 4-19 [facility] Comment on above: Performed By: #### L 503.0106, BTS, L500.4050, L100.0100, [id number] #### [facility] [address] [place], [address] CBC-Complete Blood Cnt No Di ffon 01-24-2025 Erythrocyte distribution width (RBC) [Ratio] 13.2 % Normal 11.6-14.6 [facility] Comment on above: Performed By: #### L 503.0106, BTS, L500.4050, L100.0100, L501.9520 #### [facility] [address] [place], [address] Hematocrit (Bld) [Volume fraction] 25.0 % Low 37-47 [facility] Comment on above: Performed By: #### L 503.0106, BTS, L500.4050, L100.0100, L501.9520 #### [facility] [address] [place], [address] Hemoglobin (Bld) [Mass/Vol] 8.2 g/dL Low 12.0-15.0 [facility] Comment on above: Performed By: #### L 503.0106, BTS, L500.4050, L100.0100, L501.9520 #### [facility] [address] [place], [address] MCH (RBC) [Entitic mass] 27.5 pg Normal 27.0-32.0 [facility] Comment on above: Performed By: #### L 503.0106, BTS, L500.4050, L100.0100, L501.9520 #### [facility] [address] [place], [address] MCHC (RBC) [Mass/Vol] 32.8 g/dL Normal 32-36 [facility] Comment on above: Performed By: #### L 503.0106, BTS, L500.4050, L100.0100, L501.9520 #### [facility] [address] [place], [address] MCV (RBC) [Entitic vol] 83.9 fL Normal 81-99 [facility] Comment on above: Performed By: #### L 503.0106, BTS, L500.4050, L100.0100, L501.9520 #### [facility] [address] [place], [address] Platelet mean volume (Bld) [Entitic vol] 9.1 fL Normal 6.2-12.0 [facility] Comment on above: Performed By: #### L 503.0106, BTS, L500.4050, L100.0100, [id number] #### [facility] [address] [place], [address] Platelets (Bld) [#/Vol] 308 10*3/uL Normal 150-450 [facility] Comment on above: Performed By: #### L 503.0106, BTS, L500.4050, L100.0100, [id number] #### [facility] [address] [place], [address] RBC (Bld) [#/Vol] 2.98 10*6/uL Low 4.2-5.4 [facility] Comment on above: Performed By: #### L 503.0106, BTS, L500.4050, L100.0100, [id number] #### [facility] [address] [place], [address] RDW SD 40.6 fl Normal 35.1-43.9 [facility] Comment on above: Performed By: #### L 503.0106, BTS, L500.4050, L100.0100, [id number] #### [facility] [address] [place], [address] WBC (Bld) [#/Vol] 8.6 10*3/uL Normal 4.4-11.0 [facility] Comment on above: Performed By: #### L 503.0106, BTS, L500.4050, L100.0100, L501.9520 #### [facility] [address] [place], [address] Carbon dioxide, total [Moles /volume] in Central venous bloodOrdered By: Darline Lundy on 01-24-2025 CO2 [Moles/Vol] 24.5 mmol/L 21.0-32.0 [facility] Chloride assayOrdered By: Luiz Lundy on 01-24-2025 Chloride [Moles/Vol] 103 mmol/L 98-108 [facility] Glomerular filtration rate ( GFR) estimation/1.73 sq m using serum, plasma, or whole bOrdered By: Darline Lundy on 01-24-2025 GFR/1.73 sq M.predicted among non-blacks MDRD (S/P/Bld) [Vol rate/Area] 86 mL/min/{1.73_m2} >60 [facility] Comment on above: mL/min/1.73m2 CKD-EP I Creatinine Equation (2020) HH, Hemoglobin AND Hematocri ton 01-24-2025 Hematocrit (Bld) [Volume fraction] 25.1 % Low 37-47 [facility] Comment on above: Performed By: #### L 503.0106, BTS, L500.4050, L100.0100, L501.9520 #### [facility] [address] [place], [address] Hemoglobin (Bld) [Mass/Vol] 8.5 g/dL Low 12.0-15.0 [facility] Comment on above: Performed By: #### L 503.0106, BTS, L500.4050, L100.0100, L501.9520 #### [facility] [address] [facility] [place], [address] Potassium measurement (mass/ volume)Ordered By: Darline Lundy on 01-24-2025 Potassium (Unsp spec) [Mass/Vol] 3.9 mmol/L 3.3-5.1 [facility] Serum creatinine measurement (mass/volume)Ordered By: Darline Lundy on 01-24-2025 Creatinine [Mass/Vol] 0.68 mg/dL Low 0.70-1.20 [facility] Serum glucose measurement (m ass/volume)Ordered By: Darline Lundy on 01-24-2025 Glucose [Mass/Vol] 97 mg/dL 70-99 [facility] Serum or plasma calcium taylor urement (mass/volume)Ordered By: Darline Lundy on 01-24-2025 Calcium [Mass/Vol] 8.4 mg/dL 7.6-11.0 [facility] Serum or plasma urea nitroge n measurement (mass/volume)Ordered By: Darline Lundy on 01-24-2025 Urea nitrogen [Mass/Vol] 19 mg/dL 4-19 [facility] Sodium levelOrdered By: Oscar Lundy on 01-24-2025 Sodium [Moles/Vol] 136 mmol/L 133-145 [facility] Basic Metabolic Profile (BMP )on 01-23-2025 BUN/CRE 26.3 RATIO High 10-20 [facility] Comment on above: Performed By: #### L 503.0106, BTS, L500.4050, L100.0100, L501.9520 #### [facility] [address] [place], [address] Calcium [Mass/Vol] 8.3 mg/dL Normal 7.6-11.0 [facility] Comment on above: Performed By: #### L 503.0106, BTS, L500.4050, L100.0100, L501.9520 #### [facility] [address] [place], [address] Chloride [Moles/Vol] 102 mmol/L Normal 98-108 [facility] Comment on above: Performed By: #### L 503.0106, BTS, L500.4050, L100.0100, L501.9520 #### [facility] [address] [place], [address] CO2 [Moles/Vol] 24.2 mmol/L Normal 21.0-32.0 [facility] Comment on above: Performed By: #### L 503.0106, BTS, L500.4050, L100.0100, L501.9520 #### [facility] [address] [place], [address] Creatinine [Mass/Vol] 0.61 mg/dL Low 0.70-1.20 [facility] Comment on above: Performed By: #### L 503.0106, BTS, L500.4050, L100.0100, L501.9520 #### [facility] [address] [place], [address] ECRCL 49.16 ml/min Low 50-250 [facility] Comment on above: Performed By: #### L 503.0106, BTS, L500.4050, L100.0100, L501.9520 #### [facility] [address] [place], [address] GAP 9 Normal 5-15 [facility] Comment on above: Performed By: #### L 503.0106, BTS, L500.4050, L100.0100, L501.9520 #### [facility] [address] [place], [address] GFR/1.73 sq M.predicted among non-blacks MDRD (S/P/Bld) [Vol rate/Area] 89 mL/min/{1.73_m2} Normal >60 [facility] Comment on above: Result Comment: mL/m in/1.73m2 CKD-EPI Creatinine Equation (2020) Performed By: #### L 503.0106, BTS, L500.4050, L100.0100, L501.9520 #### [facility] [address] [place], [address] Glucose [Mass/Vol] 105 mg/dL High 70-99 [facility] Comment on above: Performed By: #### L 503.0106, BTS, L500.4050, L100.0100, L501.9520 #### [facility] [address] [place], [address] Potassium [Moles/Vol] 3.8 mmol/L Normal 3.3-5.1 [facility] Comment on above: Performed By: #### L 503.0106, BTS, L500.4050, L100.0100, L501.9520 #### [facility] [address] [place], [address] Sodium [Moles/Vol] 135 mmol/L Normal 133-145 [facility] Comment on above: Performed By: #### L 503.0106, BTS, L500.4050, L100.0100, L501.9520 #### [facility] [address] [place], [address] Urea nitrogen [Mass/Vol] 16 mg/dL Normal 4-19 [facility] Comment on above: Performed By: #### L 503.0106, BTS, L500.4050, L100.0100, L501.9520 #### [facility] [address] [place], [address] CBC-Complete Blood Cnt No Di ffon 01-23-2025 Erythrocyte distribution width (RBC) [Ratio] 13.2 % Normal 11.6-14.6 [facility] Comment on above: Performed By: #### L 503.0106, BTS, L500.4050, L100.0100, L501.9520 #### [facility] [address] [place], [address] Hematocrit (Bld) [Volume fraction] 25.6 % Low 37-47 [facility] Comment on above: Performed By: #### L 503.0106, BTS, L500.4050, L100.0100, L501.9520 #### [facility] [address] [place], [address] Hemoglobin (Bld) [Mass/Vol] 8.6 g/dL Low 12.0-15.0 [facility] Comment on above: Performed By: #### L 503.0106, BTS, L500.4050, L100.0100, L501.9520 #### [facility] [address] [place], [address] MCH (RBC) [Entitic mass] 27.7 pg Normal 27.0-32.0 [facility] Comment on above: Performed By: #### L 503.0106, BTS, L500.4050, L100.0100, L501.9520 #### [facility] [address] [place], [address] MCHC (RBC) [Mass/Vol] 33.6 g/dL Normal 32-36 [facility] Comment on above: Performed By: #### L 503.0106, BTS, L500.4050, L100.0100, L501.9520 #### [facility] [address] [place], [address] MCV (RBC) [Entitic vol] 82.6 fL Normal 81-99 [facility] Comment on above: Performed By: #### L 503.0106, BTS, L500.4050, L100.0100, L501.9520 #### [facility] [address] [place], [address] Platelet mean volume (Bld) [Entitic vol] 9.2 fL Normal 6.2-12.0 [facility] Comment on above: Performed By: #### L 503.0106, BTS, L500.4050, L100.0100, L501.9520 #### [facility] [address] [place], [address] Platelets (Bld) [#/Vol] 250 10*3/uL Normal 150-450 [facility] Comment on above: Performed By: #### L 503.0106, BTS, L500.4050, L100.0100, L501.9520 #### [facility] [address] [place], [address] RBC (Bld) [#/Vol] 3.10 10*6/uL Low 4.2-5.4 [facility] Comment on above: Performed By: #### L 503.0106, BTS, L500.4050, L100.0100, L501.9520 #### [facility] [address] [place], [address] RDW SD 39.6 fl Normal 35.1-43.9 [facility] Comment on above: Performed By: #### L 503.0106, BTS, L500.4050, L100.0100, L501.9520 #### [facility] [address] [place], [address] WBC (Bld) [#/Vol] 8.6 10*3/uL Normal 4.4-11.0 [facility] Comment on above: Performed By: #### L 503.0106, BTS, L500.4050, L100.0100, L501.9520 #### [facility] [address] [place], [address] Ferritinon 01-23-2025 Ferritin [Mass/Vol] 1208 ng/mL High 22-378 [facility] Comment on above: Performed By: #### L 503.6030, L503.6550 #### [facility] [address] [place], [address] Iron measurement (mass/mass) Ordered By: Davian Kelly on 01-23-2025 Iron (Unsp spec) [Mass/Mass] 70 ug/dL 50-170 [facility] Iron+Iron Binding Capacityon 01-23-2025 TIBC 189 ug/dL Low 250-450 [facility] Comment on above: Performed By: #### L 503.6030, L503.6550 #### [facility] [address] [place], [address] No Panel InformationOrdered By: Davian Kelly on 01-23-2025 Unsaturated Iron Binding Capacity 119 ug/dL Low 228-428 [facility] Serum or plasma ferritin allison surement (mass/volume)Ordered By: Davian Kelly on 01-23-2025 Ferritin [Mass/Vol] 1208 ng/mL High 22-378 [facility] Serum or plasma iron saturat ion measurement (mass fraction)Ordered By: Davian Kelly on 01-23-2025 Iron saturation [Mass fraction] 37.0 % 13-59 [facility] Basic Metabolic Profile (BMP )on 01-22-2025 BUN/CRE 27.5 RATIO High 1020 [facility] Comment on above: Performed By: #### L 503.0106, BTS, L500.4050, L100.0100, L501.9520 #### [facility] [address] [place], [address] Calcium [Mass/Vol] 8.2 mg/dL Normal 7.6-11.0 [facility] Comment on above: Performed By: #### L 503.0106, BTS, L500.4050, L100.0100, L501.9520 #### [facility] [address] [place], [address] Chloride [Moles/Vol] 103 mmol/L Normal 98-108 [facility] Comment on above: Performed By: #### L 503.0106, BTS, L500.4050, L100.0100, L501.9520 #### [facility] [address] [place], [address] CO2 [Moles/Vol] 23.1 mmol/L Normal 21.0-32.0 [facility] Comment on above: Performed By: #### L 503.0106, BTS, L500.4050, L100.0100, L501.9520 #### [facility] [address] [place], [address] Creatinine [Mass/Vol] 0.64 mg/dL Low 0.70-1.20 [facility] Comment on above: Performed By: #### L 503.0106, BTS, L500.4050, L100.0100, L501.9520 #### [facility] [address] [place], [address] ECRCL 50.86 ml/min Normal 50-250 [facility] Comment on above: Performed By: #### L 503.0106, BTS, L500.4050, L100.0100, L501.9520 #### [facility] [address] [place], [address] GAP 10 Normal 5-15 [facility] Comment on above: Performed By: #### L 503.0106, BTS, L500.4050, L100.0100, L501.9520 #### [facility] [address] [place], [address] GFR/1.73 sq M.predicted among non-blacks MDRD (S/P/Bld) [Vol rate/Area] 88 mL/min/{1.73_m2} Normal >60 [facility] Comment on above: Result Comment: mL/m in/1.73m2 CKD-EPI Creatinine Equation (2020) Performed By: #### L 503.0106, BTS, L500.4050, L100.0100, L501.9520 #### [facility] [address] [place], [address] Glucose [Mass/Vol] 135 mg/dL High 70-99 [facility] Comment on above: Performed By: #### L 503.0106, BTS, L500.4050, L100.0100, L501.9520 #### [facility] [address] [place], [address] Potassium [Moles/Vol] 4.2 mmol/L Normal 3.3-5.1 [facility] Comment on above: Performed By: #### L 503.0106, BTS, L500.4050, L100.0100, L501.9520 #### [facility] [address] [place], [address] Sodium [Moles/Vol] 136 mmol/L Normal 133-145 [facility] Comment on above: Performed By: #### L 503.0106, BTS, L500.4050, L100.0100, L501.9520 #### [facility] [address] [place], [address] Urea nitrogen [Mass/Vol] 18 mg/dL Normal 4-19 [facility] Comment on above: Performed By: #### L 503.0106, BTS, L500.4050, L100.0100, L501.9520 #### [facility] [address] [place], [address] CBC-Complete Blood Cnt No Di ffon 01-22-2025 Erythrocyte distribution width (RBC) [Ratio] 13.0 % Normal 11.6-14.6 [facility] Comment on above: Performed By: #### L 503.0106, BTS, L500.4050, L100.0100, L501.9520 #### [facility] [address] [place], [address] Hematocrit (Bld) [Volume fraction] 26.6 % Low 37-47 [facility] Comment on above: Performed By: #### L 503.0106, BTS, L500.4050, L100.0100, L501.9520 #### [facility] [address] [place], [address] Hemoglobin (Bld) [Mass/Vol] 9.1 g/dL Low 12.0-15.0 [facility] Comment on above: Performed By: #### L 503.0106, BTS, L500.4050, L100.0100, L501.9520 #### [facility] [address] [place], [address] MCH (RBC) [Entitic mass] 27.9 pg Normal 27.0-32.0 [facility] Comment on above: Performed By: #### L 503.0106, BTS, L500.4050, L100.0100, L501.9520 #### [facility] [address] [place], [address] MCHC (RBC) [Mass/Vol] 34.2 g/dL Normal 32-36 [facility] Comment on above: Performed By: #### L 503.0106, BTS, L500.4050, L100.0100, L501.9520 #### [facility] [address] [place], [address] MCV (RBC) [Entitic vol] 81.6 fL Normal 81-99 [facility] Comment on above: Performed By: #### L 503.0106, BTS, L500.4050, L100.0100, L501.9520 #### [facility] [address] [place], [address] Platelet mean volume (Bld) [Entitic vol] 9.2 fL Normal 6.2-12.0 [facility] Comment on above: Performed By: #### L 503.0106, BTS, L500.4050, L100.0100, L501.9520 #### [facility] [address] [place], [address] Platelets (Bld) [#/Vol] 211 10*3/uL Normal 150-450 [facility] Comment on above: Performed By: #### L 503.0106, BTS, L500.4050, L100.0100, L501.9520 #### [facility] [address] [place], [address] RBC (Bld) [#/Vol] 3.26 10*6/uL Low 4.2-5.4 [facility] Comment on above: Performed By: #### L 503.0106, BTS, L500.4050, L100.0100, L501.9520 #### [facility] [address] [place], [address] RDW SD 39.3 fl Normal 35.1-43.9 [facility] Comment on above: Performed By: #### L 503.0106, BTS, L500.4050, L100.0100, L501.9520 #### [facility] [address] [place], [address] WBC (Bld) [#/Vol] 8.6 10*3/uL Normal 4.4-11.0 [facility] Comment on above: Performed By: #### L 503.0106, BTS, L500.4050, L100.0100, L501.9520 #### [facility] [address] [place], [address] Basic Metabolic Profile (BMP )on 01-21-2025 BUN/CRE 16.5 RATIO Normal 10-20 [facility] Comment on above: Performed By: #### L 503.0106, BTS, L500.4050, L100.0100, L501.9520 #### [facility] [address] [place], [address] Calcium [Mass/Vol] 7.8 mg/dL Normal 7.6-11.0 [facility] Comment on above: Performed By: #### L 503.0106, BTS, L500.4050, L100.0100, L501.9520 #### [facility] [address] [place], [address] Chloride [Moles/Vol] 103 mmol/L Normal 98-108 [facility] Comment on above: Performed By: #### L 503.0106, BTS, L500.4050, L100.0100, L501.9520 #### [facility] [address] [place], [address] CO2 [Moles/Vol] 22.5 mmol/L Normal 21.0-32.0 [facility] Comment on above: Performed By: #### L 503.0106, BTS, L500.4050, L100.0100, L501.9520 #### [facility] [address] [place], [address] Creatinine [Mass/Vol] 0.69 mg/dL Low 0.70-1.20 [facility] Comment on above: Performed By: #### L 503.0106, BTS, L500.4050, L100.0100, L501.9520 #### [facility] [address] [place], [address] ECRCL 49.36 ml/min Low 50-250 [facility] Comment on above: Performed By: #### L 503.0106, BTS, L500.4050, L100.0100, L501.9520 #### [facility] [address] [place], [address] GAP 10 Normal 5-15 [facility] Comment on above: Performed By: #### L 503.0106, BTS, L500.4050, L100.0100, L501.9520 #### [facility] [address] [place], [address] GFR/1.73 sq M.predicted among non-blacks MDRD (S/P/Bld) [Vol rate/Area] 86 mL/min/{1.73_m2} Normal >60 [facility] Comment on above: Result Comment: mL/m in/1.73m2 CKD-EPI Creatinine Equation (2020) Performed By: #### L 503.0106, BTS, L500.4050, L100.0100, L501.9520 #### [facility] [address] [place], [address] Glucose [Mass/Vol] 167 mg/dL High 70-99 [facility] Comment on above: Performed By: #### L 503.0106, BTS, L500.4050, L100.0100, L501.9520 #### [facility] [address] [place], [address] Potassium [Moles/Vol] 3.8 mmol/L Normal 3.3-5.1 [facility] Comment on above: Performed By: #### L 503.0106, BTS, L500.4050, L100.0100, L501.9520 #### [facility] [address] [place], [address] Sodium [Moles/Vol] 135 mmol/L Normal 133-145 [facility] Comment on above: Performed By: #### L 503.0106, BTS, L500.4050, L100.0100, L501.9520 #### [facility] [address] [place], [address] Urea nitrogen [Mass/Vol] 11 mg/dL Normal 4-19 [facility] Comment on above: Performed By: #### L 503.0106, BTS, L500.4050, L100.0100, L501.9520 #### [facility] [address] [place], [address] CBC-Complete Blood Cnt No Di ffon 01-21-2025 Erythrocyte distribution width (RBC) [Ratio] 13.1 % Normal 11.6-14.6 [facility] Comment on above: Performed By: #### L 503.0106, BTS, L500.4050, L100.0100, L501.9520 #### [facility] [address] [place], [address] Hematocrit (Bld) [Volume fraction] 28.9 % Low 37-47 [facility] Comment on above: Performed By: #### L 503.0106, BTS, L500.4050, L100.0100, [id number] #### [facility] [address] [place], [address] Hemoglobin (Bld) [Mass/Vol] 9.7 g/dL Low 12.0-15.0 [facility] Comment on above: Performed By: #### L 503.0106, BTS, L500.4050, L100.0100, [id number] #### [facility] [address] [place], [address] MCH (RBC) [Entitic mass] 27.6 pg Normal 27.0-32.0 [facility] Comment on above: Performed By: #### L 503.0106, BTS, L500.4050, L100.0100, L501.9520 #### [facility] [address] [place], [address] MCHC (RBC) [Mass/Vol] 33.6 g/dL Normal 32-36 [facility] Comment on above: Performed By: #### L 503.0106, BTS, L500.4050, L100.0100, L501.9520 #### [facility] [address] [place], [address] MCV (RBC) [Entitic vol] 82.3 fL Normal 81-99 [facility] Comment on above: Performed By: #### L 503.0106, BTS, L500.4050, L100.0100, L501.9520 #### [facility] [address] [place], [address] Platelet mean volume (Bld) [Entitic vol] 8.8 fL Normal 6.2-12.0 [facility] Comment on above: Performed By: #### L 503.0106, BTS, L500.4050, L100.0100, L501.9520 #### [facility] [address] [place], [address] Platelets (Bld) [#/Vol] 209 10*3/uL Normal 150-450 [facility] Comment on above: Performed By: #### L 503.0106, BTS, L500.4050, L100.0100, L501.9520 #### [facility] [address] [place], [address] RBC (Bld) [#/Vol] 3.51 10*6/uL Low 4.2-5.4 [facility] Comment on above: Performed By: #### L 503.0106, BTS, L500.4050, L100.0100, L501.9520 #### [facility] [address] [place], [address] RDW SD 39.8 fl Normal 35.1-43.9 [facility] Comment on above: Performed By: #### L 503.0106, BTS, L500.4050, L100.0100, L501.9520 #### [facility] [address] [place], [address] WBC (Bld) [#/Vol] 12.1 10*3/uL High 4.4-11.0 [facility] Comment on above: Performed By: #### L 503.0106, BTS, L500.4050, L100.0100, L501.9520 #### [facility] [address] [place], [address] Absolute lymphocyte countOrd ered By: Stephan Beard on 01-20-2025 Lymphocytes Auto (Unsp spec) [#/Vol] 0.94 10*3/uL 0.83-4.51 [facility] Absolute neutrophil countOrd ered By: Stephan Beard on 01-20-2025 Neutrophils (Bld) [#/Vol] 6.9 10*3/uL 2.0-7.7 [facility] Automated lymphocyte count a s percentage of total leukocytesOrdered By: Stephan Beard on 01-20-2025 Lymphocytes/100 WBC Auto (Unsp spec) 11.1 % Low 19-41 [facility] Basophil percentageOrdered B y: Stephan Beard on 01-20-2025 Basophils/100 WBC (Bld) 0.1 % 0-1 [facility] Bilirubin Test strip Ql (U)O rdered By: Stephan Beard on 01-20-2025 Bilirubin Ql (U) Negative Negative [facility] Bilirubin, totalOrdered By: Stephan Beard on 01-20-2025 Bilirubin [Mass/Vol] 0.63 mg/dL 0.00-1.30 [facility] CBC W/Diff, Automatedon 01-11 Absolute Lymph 0.94 X10 3/uL Normal 0.83-4.51 [facility] Comment on above: Performed By: #### L 503.0106, BTS, L500.4050, L100.0100, L501.9520 #### [facility] [address] [place], [address] Absolute Neut 6.9 X10 3/uL Normal 2.0-7.7 [facility] Comment on above: Performed By: #### L 503.0106, BTS, L500.4050, L100.0100, L501.9520 #### [facility] [address] [place], [address] Basophils/100 WBC (Bld) 0.1 % Normal 0-1 [facility] Comment on above: Performed By: #### L 503.0106, BTS, L500.4050, L100.0100, L501.9520 #### [facility] [address] [place], [address] Eosinophils/100 WBC (Bld) 0.1 % Normal 0-5 [facility] Comment on above: Performed By: #### L 503.0106, BTS, L500.4050, L100.0100, L501.9520 #### [facility] [address] [place], [address] Erythrocyte distribution width (RBC) [Ratio] 13.1 % Normal 11.6-14.6 [facility] Comment on above: Performed By: #### L 503.0106, BTS, L500.4050, L100.0100, L501.9520 #### [facility] [address] [place], [address] Hematocrit (Bld) [Volume fraction] 34.5 % Low 37-47 [facility] Comment on above: Performed By: #### L 503.0106, BTS, L500.4050, L100.0100, L501.9520 #### [facility] [address] [place], [address] Hemoglobin (Bld) [Mass/Vol] 11.1 g/dL Low 12.0-15.0 [facility] Comment on above: Performed By: #### L 503.0106, BTS, L500.4050, L100.0100, L501.9520 #### [facility] [address] [place], [address] IG% 0.400 Normal 0.0-0.9 [facility] Comment on above: Result Comment: IG% - Immature Granulocytes (promyelocytes, myelocytes and metamyelocytes) > 1% indicates that a LEFT SHIFT is Present. Performed By: #### L 503.0106, BTS, L500.4050, L100.0100, L501.9520 #### [facility] [address] [place], [address] Lymphocytes/100 WBC (Bld) 11.1 % Low 19-41 [facility] Comment on above: Performed By: #### L 503.0106, BTS, L500.4050, L100.0100, L501.9520 #### [facility] [address] [place], [address] MCH (RBC) [Entitic mass] 27.3 pg Normal 27.0-32.0 [facility] Comment on above: Performed By: #### L 503.0106, BTS, L500.4050, L100.0100, L501.9520 #### [facility] [address] [place], [address] MCHC (RBC) [Mass/Vol] 32.2 g/dL Normal 32-36 [facility] Comment on above: Performed By: #### L 503.0106, BTS, L500.4050, L100.0100, L501.9520 #### [facility] [address] [place], [address] MCV (RBC) [Entitic vol] 84.8 fL Normal 81-99 [facility] Comment on above: Performed By: #### L 503.0106, BTS, L500.4050, L100.0100, L501.9520 #### [facility] [address] [place], [address] Monocytes/100 WBC (Bld) 7.2 % Normal 0-10 [facility] Comment on above: Performed By: #### L 503.0106, BTS, L500.4050, L100.0100, L501.9520 #### [facility] [address] [place], [address] Neutrophils/100 WBC (Bld) 81.1 % High 47-70 [facility] Comment on above: Performed By: #### L 503.0106, BTS, L500.4050, L100.0100, L501.9520 #### [facility] [address] [place], [address] Nucleated RBC (Bld) [#/Vol] 0 10*3/uL Normal 0-5 [facility] Comment on above: Performed By: #### L 503.0106, BTS, L500.4050, L100.0100, L501.9520 #### [facility] [address] [place], [address] Platelet mean volume (Bld) [Entitic vol] 8.8 fL Normal 6.2-12.0 [facility] Comment on above: Performed By: #### L 503.0106, BTS, L500.4050, L100.0100, L501.9520 #### [facility] [address] [place], [address] Platelets (Bld) [#/Vol] 241 10*3/uL Normal 150-450 [facility] Comment on above: Performed By: #### L 503.0106, BTS, L500.4050, L100.0100, L501.9520 #### [facility] [address] [place], [address] RBC (Bld) [#/Vol] 4.07 10*6/uL Low 4.2-5.4 [facility] Comment on above: Performed By: #### L 503.0106, BTS, L500.4050, L100.0100, L501.9520 #### [facility] [address] [place], [address] RDW SD 40.1 fl Normal 35.1-43.9 [facility] Comment on above: Performed By: #### L 503.0106, BTS, L500.4050, L100.0100, L501.9520 #### [facility] [address] [place], [address] WBC (Bld) [#/Vol] 8.5 10*3/uL Normal 4.4-11.0 [facility] Comment on above: Performed By: #### L 503.0106, BTS, L500.4050, L100.0100, L501.9520 #### [facility] [address] [place], [address] Comprehensive Metabolic [facility] ilon 01-20-2025 Albumin [Mass/Vol] 3.6 g/dL Normal 3.4-4.8 [facility] Comment on above: Performed By: #### L 503.0106, BTS, L500.4050, L100.0100, L501.9520 #### [facility] [address] [place], [address] Albumin/Globulin [Mass ratio] 1.4 {ratio} Normal 0.9-2.4 [facility] Comment on above: Performed By: #### L 503.0106, BTS, L500.4050, L100.0100, L501.9520 #### [facility] [address] [place], [address] ALK PHOS 51 U/L Normal 35-104 [facility] Comment on above: Performed By: #### L 503.0106, BTS, L500.4050, L100.0100, L501.9520 #### [facility] [address] [place], [address] ALT [Catalytic activity/Vol] U/L Normal <=34 [facility] Comment on above: Performed By: #### L 503.0106, BTS, L500.4050, L100.0100, L501.9520 #### [facility] [address] [place], [address] AST [Catalytic activity/Vol] 19 U/L Normal <=31 [facility] Comment on above: Performed By: #### L 503.0106, BTS, L500.4050, L100.0100, L501.9520 #### [facility] [address] [place], [address] Bilirubin [Mass/Vol] 0.63 mg/dL Normal 0.00-1.30 [facility] Comment on above: Performed By: #### L 503.0106, BTS, L500.4050, L100.0100, L501.9520 #### [facility] [address] [place], [address] BUN/CRE 19.9 RATIO Normal 10-20 [facility] Comment on above: Performed By: #### L 503.0106, BTS, L500.4050, L100.0100, L501.9520 #### [facility] [address] [place], [address] Calcium [Mass/Vol] 8.2 mg/dL Normal 7.6-11.0 [facility] Comment on above: Performed By: #### L 503.0106, BTS, L500.4050, L100.0100, L501.9520 #### [facility] [address] [place], [address] Chloride [Moles/Vol] 100 mmol/L Normal 98-108 [facility] Comment on above: Performed By: #### L 503.0106, BTS, L500.4050, L100.0100, L501.9520 #### [facility] [address] [place], [address] CO2 [Moles/Vol] 21.8 mmol/L Normal 21.0-32.0 [facility] Comment on above: Performed By: #### L 503.0106, BTS, L500.4050, L100.0100, L501.9520 #### [facility] [address] [place], [address] Creatinine [Mass/Vol] 0.65 mg/dL Low 0.70-1.20 [facility] Comment on above: Performed By: #### L 503.0106, BTS, L500.4050, L100.0100, L501.9520 #### [facility] [address] [place], [address] ECRCL 50.52 ml/min Normal 50-250 [facility] Comment on above: Performed By: #### L 503.0106, BTS, L500.4050, L100.0100, L501.9520 #### [facility] [address] [place], [address] GAP 12 Normal 5-15 [facility] Comment on above: Performed By: #### L 503.0106, BTS, L500.4050, L100.0100, L501.9520 #### [facility] [address] [place], [address] GFR/1.73 sq M.predicted among non-blacks MDRD (S/P/Bld) [Vol rate/Area] 87 mL/min/{1.73_m2} Normal >60 [facility] Comment on above: Result Comment: mL/m in/1.73m2 CKD-EPI Creatinine Equation (2020) Performed By: #### L 503.0106, BTS, L500.4050, L100.0100, L501.9520 #### [facility] [address] [place], [address] Globulin (S) [Mass/Vol] 2.7 g/dL Normal 2.2-4.2 [facility] Comment on above: Performed By: #### L 503.0106, BTS, L500.4050, L100.0100, L501.9520 #### [facility] [address] [place], [address] Glucose [Mass/Vol] 98 mg/dL Normal 70-99 [facility] Comment on above: Performed By: #### L 503.0106, BTS, L500.4050, L100.0100, L501.9520 #### [facility] [address] [place], [address] Potassium [Moles/Vol] 3.5 mmol/L Normal 3.3-5.1 [facility] Comment on above: Performed By: #### L 503.0106, BTS, L500.4050, L100.0100, L501.9520 #### [facility] [address] [place], [address] Sodium [Moles/Vol] 134 mmol/L Normal 133-145 [facility] Comment on above: Performed By: #### L 503.0106, BTS, L500.4050, L100.0100, L501.9520 #### [facility] [address] [place], [address] T PROT 6.3 g/dL Normal 5.9-8.4 [facility] Comment on above: Performed By: #### L 503.0106, BTS, L500.4050, L100.0100, L501.9520 #### [facility] [address] [place], [address] Urea nitrogen [Mass/Vol] 13 mg/dL Normal 4-19 [facility] Comment on above: Performed By: #### L 503.0106, BTS, L500.4050, L100.0100, L501.9520 #### [facility] [address] [place], [address] Consultation - Orthopedicson 01-20-2025 Consultation - Orthopedics [facility] Medical Records Department [address] [place] [address] Consultation - Orthopedics 01/20/25 1415 MR#: [id number] Acct: [id number] Name: MONISHA COHN Rep #: [id number] : 1940 84 From: Braulio Tijerina MD PCP: Tressa Rosales Status:ADM IN Location: MS3 [id number] HPI Consult Data Date of Consult: 01/20/25 [...] Patient notes that she lives in a [facility] facility and ambulates with a walker or uses a wheelchair. She does not walk independently. She was reported to have fallen yesterday and sustained an injury to her right hand and hip. She was seen at an outside hospital and requested transfer to [place] as they did not have orthopedics. She [...] denies any current treatment or active malignancies. [facility] Medical History Nocturia Urge incontinence Overactive bladder Former tobacco use Depression Hypertension Fall [facility] (closed head injury) Presence of stent in coronary artery ( 12/22/21) Atherosclerotic heart disease of saxman coronary artery without angina pectoris ST elevation [...] Tobacco: How (more content not included)... Normal [facility] Decalcification bone/plaqueo n 01-20-2025 Decalcification bone/plaque ---- Patient Age/Sex Location Account Attending Physician ---- MONISHA COHN 84/F MS3 [id number] Dr. Davian Kelly MD ---- Specimen: [id number] Received: 01/23/25 Status: CAROL Mccauley Num: [id number] Spec Type: TOTAL HIP Subm Dr: Dr. [...] medullary bone. No definitive lesions are identified. Injection Specialist sections are submitted in 2 cassettes, following decalcification, as follows: A1: Articular cartilage, including area of detached cartilageA2: Congested medullary bone, area of detached cartilage [place] 01/23/2025 [facility]:[id number] ---- Patient Age/Sex Location Account Attending Physician ---- MONISHA COHN 84/F MS3 [id number] Dr. Davian Kelly MD ---- Signed (signature on file) Dr. Debbie Corea MD 01/27/25 1357 ---- Normal [facility] Comment on above: Performed By: #### L 503.0106, BTS, L500.4050, L100.0100, L501.9520 #### [facility] [address] [place], [address] ED NOTEon 01-20-2025 ED NOTE HNO ID: [id number] Author: FLORIDALMA SZYMANSKI, RN Service: Emergency Medicine Author Type: Registered Nurse Type: ED Notes Filed: 01/20/2025 00:07 Note Text: [facility] here, chart and report provided along with disk of films Normal [facility] Eosinophil percentageOrdered By: Stephan Beard on 01-20-2025 Eosinophils/100 WBC (Bld) 0.1 % 0-5 [facility] Folate [Mass/volume] in Seru m or PlasmaOrdered By: Stephan Beard on 01-20-2025 Folate [Mass/Vol] 6.23 ng/mL 4.60-34.80 [facility] Comment on above: Hemolysis, Results w ill be affected, Requires Recollection. Folates,Serum (Folic Acid)on 01-20-2025 FOLATES,SERUM 6.23 ng/mL Normal 4.60-34.80 [facility] Comment on above: Result Comment: Hemo lysis, Results will be affected, Requires Recollection. Performed By: #### L 503.0106, BTS, L500.4050, L100.0100, L501.9520 #### [facility] [address] [facility] [address] [place], [address] H AND P Exam - Hospitaliston 01-20-2025 H&P Exam - Hospitalist [facility] Medical Records Department [address] [place] [address] H P Exam - Hospitalist 01/20/25 0112 MR#: [id number] Acct: [id number] Name: MONISHA COHN Rep #: [id number] : 1940 84 From: Stephan Martel DO PCP: Tressa Rosales Status:ADM IN [place] [facility] SE[facility] - General General Date of Admission: 01/20/25 Date of Service: 01/20/25 Chief Complaint: Fall with Right Hip Fracture. 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 Dr. North of [facility] spoke to Dr. Tijerina of the orthopedic service here who recommended admission to the hospitalist service with formal consultation pending in the a.m. for ORIF. She was then admitted to the general medical floor for ongoing care for stay that is expected to extend beyond 2 midnights. [facility] Medical History Nocturia Urge incontinence Overactive bladder Former tobacco use Depression Hypertension Fall [facility] (closed head injury) Presence of stent in coronary artery ( 12/22/21) Atherosclerotic heart disease of saxman coronary artery without angina pectoris ST elevation [...] PO .COMPLEX (more content not included)... Normal [facility] Hip Min 2 Views (Portable)on 01-20-2025 Hip Min 2 Views (Portable) [facility] Imaging Services [address] [place] [address] Hip Min 2 Views (Portable) MR#: [id number] Acct: [id number] Name: MONISHA COHN Rep #: [id number] : 1940 F 84 From: Law brewster MD PCP: Tressa Rosales Status: ADM IN Study: Hip Min 2 Views (Portable) Date of Exam: 01/20 Exam# [id number] Ordering Dr: Braulio Tijerina MD PROCEDURE: HIP [...] hip chronic and surgical changes. [facility] CC: Dr. Braulio Tijerina MD; Tressa Rosales Engineering Production Liaison: Signed Normal [facility] Hip Min 2 Views (Portable) [facility] Imaging Services [address] [place] [address] Hip Min 2 Views (Portable) MR#: [id number] Acct: [id number] Name: MONISHA COHN Rep #: [id number] : 1940 F 84 From: Law brewster MD PCP: Tressa Rosales Status: ADM IN Study: Hip Min 2 Views (Portable) Date of Exam: 01/20 Exam# [id number] Ordering Dr: Braulio Tijerina MD PROCEDURE: HIP [...] CC: Dr. Braulio Tijerina MD; Tressa Rosales Engineering Production Liaison: Signed Normal [facility] Immature granulocytes/100 WB C Auto (Bld)Ordered By: Stephan Beard on 01-20-2025 Immature granulocytes/100 WBC (Bld) 0.400 % 0.0-0.9 [facility] Comment on above: IG% - Immature Granu locytes (promyelocytes, myelocytes and metamyelocytes) > 1% indicates that a LEFT SHIFT is Present. Ketones Test strip Ql (U)Ord ered By: Stephan Beard on 01-20-2025 Ketones Ql (U) 15 mg/dl High Negative [facility] L501.4021on 01-20-2025 Trop T High Sen 27 ng/L High <=14 [facility] Comment on above: Performed By: #### L 503.0106, BTS, L500.4050, L100.0100, L501.9520 #### [facility] [address] [facility] [place], [address] Laboratory - Chemistry and C hemistry - challengeOrdered By: Stephan Beard on 01-20-2025 AST [Catalytic activity/Vol] 19 U/L <32 [facility] MR/POSTOP.ANEon 01-20-2025 MR/POSTOP.ANE [facility] Medical Records Department [address] [place] [address] Anesthesia Postop Eval I 01/20/25 1715 MR#: [id number] Acct: [id number] Name: MONISHA COHN Rep #: [id number] : 1940 84 From: Brennen Rojas CRNA PCP: Tressa Rosales Status:ADM IN Y Race: C Location: ME3 [id number] Anesthesia: Postop Eval I Current Vital Signs [...] [place] JULIAN Cosigner Signature: CC: Signed Normal [facility] MR/[id number] 01-20-2025 [facility] Medical Records Department [address] [place] [address] Anesthesia Postop Eval II 01/20/251705 MR#: [id number] Acct: [id number] Name: MONISHA COHN Rep #: [id number] : 1940 84 From: Jareth Shepard MD PCP: Tressa Rosales Status:ADM IN Y Race: C [place] [facility] [id number] Anesthesia Postop Eval I Sum Anesthesia Postop [...] MD Cosigner Signature: Date CC: Signed Normal [facility] Microscopic analysis of urin e for red blood cells (RBC)Ordered By: Stephan Beard on 01-20-2025 Microscopic analysis of urine for red blood cells (RBC) 0 SEEN /hpf 0-5 [facility] Monocyte percentageOrdered B y: Stephan Beard on 01-20-2025 Monocytes/100 WBC (Bld) 7.2 % 0-10 [facility] Mucus LM Ql (Urine sed)Order ed By: Stephan Beard on 01-20-2025 Mucus Ql (Urine sed) 0 SEEN /hpf [facility] Neutrophil percentageOrdered By: Stephan Beard on 01-20-2025 Neutrophils/100 WBC (Bld) 81.1 % High 47-70 [facility] Nitrite Test strip Ql (U)Ord ered By: Stephan Beard on 01-20-2025 Nitrite Ql (U) Negative Negative [facility] Nucleated red blood cell per centageOrdered By: Stephan Beard on 01-20-2025 Nucleated RBC/100 WBC (Bld) [Ratio] 0 % 0-5 [facility] Operative Reporton Operative Report [facility] Medical Records Department [address] [place] [address] Operative Report 01/20/25 1545 MR#: [id number] Acct: [id number] Name: MONISHA COHN Rep #: [id number] : 1940 84 From: Braulio Tijerina MD PCP: Tressa Rosales Status:ADM IN [facility] (Standard) Operative Information Date of Procedure: 01/20/25 Pre-Operative Diagnosis: Right hip subcapital femoral neck fracture Post-Operative Diagnosis: Right hip subcapital femoral neck fracture Surgery/Procedure Performed: Right hip endoprosthesis sap data architect: Yes Service Architect: Edyta Bhatti Tasks completed by family law legal assistant: Opening, Closing, Implanting device and Retracting Additional special education assistant?: No Type of Anesthesia: General RN [...] the emmanuel (more content not included)... Normal [facility] Phosphoruson 01-20-2025 Phosphate [Mass/Vol] 2.4 mg/dL Low 2.7-4.5 [facility] Comment on above: Performed By: #### L 501.2300 #### [facility] [address] [place], [address] Protein Test strip Ql (U)Ord ered By: Stephan Beard on 01-20-2025 Protein Ql (U) 15 mg/dl High Negative [facility] Serum globulin measurementOr dered By: Stephan dela cruz 01-20-2025 Globulin (S) [Mass/Vol] 2.7 g/dL 2.2-4.2 [facility] Serum or plasma alanine swenson otransferase (ALT) measurementOrdered By: Stephan Beard on 01-20-2025 ALT [Catalytic activity/Vol] U/L <35 [facility] Serum or plasma albumin taylor urement (mass/volume)Ordered By: Stephan Beard on 01-20-2025 Albumin [Mass/Vol] 3.6 g/dL 3.4-4.8 [facility] Serum or plasma albumin/glob ulin mass ratioOrdered By: Stephan Beard on 01-20-2025 Albumin/Globulin [Mass ratio] 1.4 {ratio} 0.9-2.4 [facility] Serum or plasma alkaline nhi sphatase measurementOrdered By: Stephan Beard on 01-20-2025 ALP [Catalytic activity/Vol] 51 U/L 35-104 [facility] Squamous epithelial cells de tection in urine sediment by light microscopyOrdered By: Stephan Beard on 01-20-2025 Epithelial cells.squamous LM Ql (Urine sed) 0 SEEN /hpf -10 [facility] TSH DL <= 0.005 mIU/L QnOrde red By: Stephan Beard on 01-20-2025 TSH Qn 1.900 uIU/mL 0.300-4.200 [facility] Thyroid Stim Hormone (TSH)on 01-20-2025 TSH 1.900 uIU/mL Normal 0.300-4.200 [facility] Comment on above: Performed By: #### L 503.0106, BTS, L500.4050, L100.0100, L501.9520 #### [facility] [address] [place], [address] Total proteinOrdered By: Melchor Beard on 01-20-2025 Protein [Mass/Vol] 6.3 g/dL 5.9-8.4 [facility] Troponin T HS 2 HRon 025 Trop T High Sen 29 ng/L High <=14 [facility] Comment on above: Performed By: #### L 503.0106, BTS, L500.4050, L100.0100, L501.9520 #### [facility] [address] [place], [address] Troponin T HS 4 HRon 025 Trop T High Sen 28 ng/L High <=14 [facility] Comment on above: Performed By: #### L 503.0106, BTS, L500.4050, L100.0100, L501.9520 #### [facility] [address] [place], [address] Troponin T.cardiac [Mass/vol ume] in Serum or Plasma by High sensitivity methodOrdered By: Stephan Beard on 01-20-2025 Troponin T.cardiac High sensitivity method [Mass/Vol] 28 ng/L High <14 [facility] Troponin T.cardiac High sensitivity method [Mass/Vol] 29 ng/L High <14 [facility] Troponin T.cardiac High sensitivity method [Mass/Vol] 27 ng/L High <14 [facility] Type AND Screenon 01-20-2025 ABO and Rh group Nom (Bld) Blood group B Rh(D) positive Normal [facility] Comment on above: Order Comment: S Performed By: #### L 503.0106, BTS, L500.4050, L100.0100, L501.9520 #### [facility] [address] [place], [address] Urinalysis, Completeon 01-20 BACTERIA 0 SEEN Normal None Seen [facility] Comment on above: Order Comment: CLEAN CATCH Performed By: #### L 503.0106, BTS, L500.4050, L100.0100, L501.9520 #### [facility] [address] [place], [address] EPI,SQUAMOUS 0 SEEN Normal -10 [facility] Comment on above: Order Comment: CLEAN CATCH Performed By: #### L 503.0106, BTS, L500.4050, L100.0100, L501.9520 #### [facility] [address] [place], [address] Mucus Ql (Urine sed) 0 SEEN Normal [facility] Comment on above: Order Comment: CLEAN CATCH Performed By: #### L 503.0106, BTS, L500.4050, L100.0100, L501.9520 #### [facility] [address] [place], [address] RBC 0 SEEN Normal 0-5 [facility] Comment on above: Order Comment: CLEAN CATCH Performed By: #### L 503.0106, BTS, L500.4050, L100.0100, L501.9520 #### [facility] [address] [place], [address] WBC 0 SEEN Normal 0-5 [facility] Comment on above: Order Comment: CLEAN CATCH Performed By: #### L 503.0106, BTS, L500.4050, L100.0100, L501.9520 #### [facility] [address] [place], [address] Urine clarityOrdered By: Melchor Beard on 01-20-2025 Clarity (U) Sl. Cloudy Clear [facility] Urine color determinationOrd ered By: Stephan Beard on 01-20-2025 Color (U) Yellow Yellow [facility] Urine glucose detectionOrder ed By: Stephan Beard on 01-20-2025 Glucose Ql (U) Normal mg/dl Normal [facility] Urine leukocyte esterase det ection by dipstickOrdered By: Stephan Beard on 01-20-2025 Leukocyte esterase Test strip Ql (U) Negative Negative [facility] Urine pHOrdered By: Stephan hagen on 01-20-2025 pH (U) 6.5 [pH] 5.0 - 8.0 [facility] Urine sediment bacteria coun t by microscopy (number/high power field)Ordered By: Stephan Beard on 01-20-2025 Bacteria LM.HPF (Urine sed) [#/Area] 0 /[HPF] None Seen [facility] Urine specific gravity measu rementOrdered By: Stephan Beard on 01-20-2025 Specific gravity (U) [Rel density] 1.010 1.002-1.030 [facility] Urine urobilinogen measureme ntOrdered By: Stephan Beard on 01-20-2025 Urobilinogen Ql (U) Normal mg/dl Normal [facility] Vitamin B12on 01-20-2025 Cobalamin (Vitamin B12) [Mass/Vol] 1234 pg/mL High 180-914 [facility] Comment on above: Performed By: #### L 503.0106, BTS, L500.4050, L100.0100, L501.9520 #### [facility] [address] [place], [address] Vitamin B12 ser/plasOrdered By: Stephan Beard on 01-20-2025 Cobalamin (Vitamin B12) [Mass/Vol] 1234 pg/mL High 180-914 [facility] White blood cell countOrdere d By: Stephan Beard on 01-20-2025 White blood cell count 0 SEEN /hpf 0-5 [facility] ALLIED HEALTHon 01-19-2025 ALLIED HEALTH HNO ID: [id number] Author: JANNIE MARTINES RT(R) Service: Radiology Author Type: Carpet Layer Helper Type: Allied Health Filed: 01/19/2025 21:08 Note [...] PATIENT PRESENTS WITH AN IMPLANTABLE OR ATTACHED PAPER TUBE CUTTER: No RADIOLOGY DEPARTMENT: CT; Exam(s) Completed: Brain and Spine . Anesthesia: No PERIPHERAL IV DATA: Not applicable SIGNED BY: Jannie Martines RT(R) January 19, 2025 9:08 PM Normal [facility] Basic metabolic 2000 panelon 01-19-2025 Anion gap [Moles/Vol] 11 mmol/L Normal 8-15 [facility] Comment on above: Order Comment: Speci men Type: BLOOD SPECIMEN Ordering Facility: [facility] Address: [address] [place] [address] Performed By: #### 2 4321-2 #### [facility] CLIA [id number] [address] [place] [address] [place] Calcium [Mass/Vol] 8.7 mg/dL Normal 8.5-10.2 [facility] Comment on above: Order Comment: Speci men Type: BLOOD SPECIMEN Ordering Facility: [facility] Address: [address] [place] [address] Performed By: #### 2 4321-2 #### [facility] CLIA [id number] [address] [place] [address] [place] Chloride [Moles/Vol] 100 mmol/L Normal 98-107 [facility] Comment on above: Order Comment: Speci men Type: BLOOD SPECIMEN Ordering Facility: [facility] Address: [address] [place] [address] Performed By: #### 2 4321-2 #### [facility] CLIA [id number] [address] [place] [address] [place] CO2 [Moles/Vol] 23 mmol/L Normal 22-30 [facility] Comment on above: Order Comment: Speci men Type: BLOOD SPECIMEN Ordering Facility: [facility] Address: [address] [place] [address] Performed By: #### 2 4321-2 #### [facility] CLIA [id number] [address] [place] [address] [place] Creatinine [Mass/Vol] 0.76 mg/dL Normal 0.58-0.96 [facility] Comment on above: Order Comment: Liza granados Type: BLOOD SPECIMEN Ordering Facility: [facility] Address: [address] [place] [address] Performed By: #### 2 4321-2 #### [facility] CLIA [id number] [address] [place] [address] [place] eGFRcr SerPlBld CKD-EPI 2020 78 mL/min/1.73m??? Normal >=60 [facility] Comment on above: Order Comment: Liza granados Type: BLOOD SPECIMEN Ordering Facility: [facility] Address: [address] [place] [address] Result Comment: Rachael mated Glomerular Filtration Rate [...] GFR. Performed By: #### 2 4321-2 #### [facility] CLIA [id number] [address] [place] [address] [place] Glucose [Mass/Vol] 100 mg/dL High 74-99 [facility] Comment on above: Order Comment: Liza granados Type: BLOOD SPECIMEN Ordering Facility: [facility] Address: [address] [place] [address] Result Comment: The [place] [employer] (ADA) provides guidance for cutoff [...] Standards of Medical Care in Diabetes 2016, [place] [employer]. Diabetes Care. 2016.39(Suppl 1). Performed By: #### 2 4321-2 #### [facility] CLIA [id number] [address] [place] [address] [place] Potassium [Moles/Vol] 3.8 mmol/L Normal 3.7-5.1 [facility] Comment on above: Order Comment: Speci men Type: BLOOD SPECIMEN Ordering Facility: [facility] Address: [address] [place] [address] Performed By: #### 2 4321-2 #### [facility] CLIA [id number] [address] [place] [address] [place] Sodium [Moles/Vol] 134 mmol/L Low 136-144 [facility] Comment on above: Order Comment: Speci men Type: BLOOD SPECIMEN Ordering Facility: [facility] Address: [address] [place] [address] Performed By: #### 2 4321-2 #### [facility] CLIA [id number] [address] [place] [address] [place] Urea nitrogen [Mass/Vol] 14 mg/dL Normal 7-21 [facility] Comment on above: Order Comment: Speci men Type: BLOOD SPECIMEN Ordering Facility: [facility] Address: [address] [place] [address] Performed By: #### 2 4321-2 #### [facility] CLIA [id number] [address] [place] CBC W Auto Differential pane l (Bld)on 01-19-2025 Basophils (Bld) [#/Vol] 10*3/uL Normal <0.11 [facility] Comment on above: Order Comment: Speci men Type: BLOOD SPECIMEN Ordering Facility: [facility] Address: [address] [place] [address] Performed By: #### 5 7021-8 #### [facility] CLIA [id number] [address] [place] [address] [facility] [place] Basophils/100 WBC (Bld) 0.3 % Normal [facility] Comment on above: Order Comment: Speci men Type: BLOOD SPECIMEN Ordering Facility: [facility] Address: [address] [place] [address] Performed By: #### 5 7021-8 #### [facility] CLIA [id number] [address] [place] [address] [place] Differential cell count method Nom (Bld) Auto Normal [facility] Comment on above: Order Comment: Speci men Type: BLOOD SPECIMEN Ordering Facility: [facility] Address: [address] [place] [address] Performed By: #### 5 7021-8 #### [facility] CLIA [id number] [address] [place] [address] [place] Eosinophils (Bld) [#/Vol] 10*3/uL Normal <0.46 [facility] Comment on above: Order Comment: Speci men Type: BLOOD SPECIMEN Ordering Facility: [facility] Address: [address] [place] [address] Performed By: #### 5 7021-8 #### [facility] CLIA [id number] [address] [place] [address] [place] Eosinophils/100 WBC (Bld) 0.3 % Normal [facility] Comment on above: Order Comment: Speci men Type: BLOOD SPECIMEN Ordering Facility: [facility] Address: [address] [place] [address] Performed By: #### 5 7021-8 #### [facility] CLIA [id number] [address] [place] [address] [place] Erythrocyte distribution width (RBC) [Ratio] 13.1 % Normal 11.5-15.0 [facility] Comment on above: Order Comment: Speci men Type: BLOOD SPECIMEN Ordering Facility: [facility] Address: [address] [place] [address] Performed By: #### 5 7021-8 #### [facility] CLIA [id number] [address] [place] [address] [place] Hematocrit (Bld) [Volume fraction] 35.9 % Low 36.0-46.0 [facility] Comment on above: Order Comment: Speci men Type: BLOOD SPECIMEN Ordering Facility: [facility] Address: [address] [place] [address] Performed By: #### 5 7021-8 #### [facility] CLIA [id number] [address] [place] [address] [place] Hemoglobin (Bld) [Mass/Vol] 11.3 g/dL Low 11.5-15.5 [facility] Comment on above: Order Comment: Speci men Type: BLOOD SPECIMEN Ordering Facility: [facility] Address: [address] [place] [address] Performed By: #### 5 7021-8 #### [facility] CLIA [id number] [address] [place] [address] [place] Immature granulocytes (Bld) [#/Vol] 10*3/uL Normal <0.10 [facility] Comment on above: Order Comment: Speci men Type: BLOOD SPECIMEN Ordering Facility: [facility] Address: [address] [place] [address] Performed By: #### 5 7021-8 #### [facility] CLIA [id number] [address] [place] [address] [place] Immature granulocytes/100 WBC (Bld) 0.6 % Normal [facility] Comment on above: Order Comment: Speci men Type: BLOOD SPECIMEN Ordering Facility: [facility] Address: [address] [place] [address] Performed By: #### 5 7021-8 #### [facility] CLIA [id number] [address] [place] [address] [place] Lymphocytes (Bld) [#/Vol] 1.32 10*3/uL Normal 1.00-4.00 [facility] Comment on above: Order Comment: Speci men Type: BLOOD SPECIMEN Ordering Facility: [facility] Address: [address] [place] [address] Performed By: #### 5 7021-8 #### [facility] CLIA [id number] [address] [place] [address] [facility] Lymphocytes/100 WBC (Bld) 40.6 % Normal [facility] Comment on above: Order Comment: Speci men Type: BLOOD SPECIMEN Ordering Facility: [facility] Address: [address] [place] [address] Performed By: #### 5 7021-8 #### [facility] CLIA [id number] [address] [place], [place] [address] [place] [address] MCH (RBC) [Entitic mass] 27.8 pg Normal 26.0-34.0 [facility] Comment on above: Order Comment: Speci men Type: BLOOD SPECIMEN Ordering Facility: [facility] Address: [address] [place] [address] Performed By: #### 5 7021-8 #### [facility] CLIA [id number] [address] [place], [place] [address] [place] [address] MCHC (RBC) [Mass/Vol] 31.5 g/dL Normal 30.5-36.0 [facility] Comment on above: Order Comment: Speci men Type: BLOOD SPECIMEN Ordering Facility: [facility] Address: [address] [place] [address] Performed By: #### 5 7021-8 #### [facility] CLIA [id number] [address] [place], [place] [id number] [place] [address] [place] MCV (RBC) [Entitic vol] 88.4 fL Normal 80.0-100.0 [facility] Comment on above: Order Comment: Speci men Type: BLOOD SPECIMEN Ordering Facility: [facility] Address: [address] [place] [address] Performed By: #### 5 7021-8 #### [facility] CLIA [id number] [address] [place] [address] [facility] Monocytes (Bld) [#/Vol] 0.42 10*3/uL Normal <0.87 [facility] Comment on above: Order Comment: Speci men Type: BLOOD SPECIMEN Ordering Facility: [facility] Address: [address] [place] [address] Performed By: #### 5 7021-8 #### [facility] CLIA [id number] [address] [place] [address] [place] Monocytes/100 WBC (Bld) 12.9 % Normal A [facility] Comment on above: Order Comment: Speci men Type: BLOOD SPECIMEN Ordering Facility: [facility] Address: [address] [place] [address] Performed By: #### 5 7021-8 #### [facility] CLIA [id number] [address] [place] [address] [place] Neutrophils (Bld) [#/Vol] 1.47 10*3/uL Normal 1.45-7.50 [facility] Comment on above: Order Comment: Speci men Type: BLOOD SPECIMEN Ordering Facility: [facility] Address: [address] [place] [address] Performed By: #### 5 7021-8 #### [facility] CLIA [id number] [address] [place] [address] [place] Neutrophils/100 WBC (Bld) 45.3 % Normal [facility] Comment on above: Order Comment: Speci men Type: BLOOD SPECIMEN Ordering Facility: [facility] Address: [address] [place] [address] Performed By: #### 5 7021-8 #### [facility] CLIA [id number] [address] [place] [address] [place] Nucleated RBC (Bld) [#/Vol] Normal [facility] Comment on above: Order Comment: Speci men Type: BLOOD SPECIMEN Ordering Facility: [facility] Address: [address] [place] [address] Performed By: #### 5 7021-8 #### [facility] CLIA [id number] [address] [place] [address] [place] Nucleated RBC/100 WBC (Bld) [Ratio] Normal [facility] Comment on above: Order Comment: Speci men Type: BLOOD SPECIMEN Ordering Facility: [facility] Address: [address] [place] [address] Performed By: #### 5 7021-8 #### [facility] CLIA [id number] [address] [place] [address] [place] Platelet mean volume (Bld) [Entitic vol] 8.3 fL Low 9.0-12.7 [facility] Comment on above: Order Comment: Speci men Type: BLOOD SPECIMEN Ordering Facility: [facility] Address: [address] [place] [address] Performed By: #### 5 7021-8 #### [facility] CLIA [id number] [address] [place] [address] [place] Platelets (Bld) [#/Vol] 238 10*3/uL Normal 150-400 [facility] Comment on above: Order Comment: Speci men Type: BLOOD SPECIMEN Ordering Facility: [facility] Address: [address] [place] [address] Performed By: #### 5 7021-8 #### [facility] CLIA [id number] [address] [place] [address] [place] RBC (Bld) [#/Vol] 4.06 10*6/uL Normal 3.90-5.20 [facility] Comment on above: Order Comment: Speci men Type: BLOOD SPECIMEN Ordering Facility: [facility] Address: [address] [place] [address] Performed By: #### 5 7021-8 #### [facility] CLIA [id number] [address] [place] [address] [place] WBC (Bld) [#/Vol] 3.25 10*3/uL Low 3.70-11.00 [facility] Comment on above: Order Comment: Speci men Type: BLOOD SPECIMEN Ordering Facility: [facility] Address: [address] [place] [address] Performed By: #### 5 7021-8 #### [facility] CLIA [id number] [address] [place] [address] [place] [address] BRAIN WO IVCONon 01-20-20 CT BRAIN WO IVCON * * *Final Report* * * DATE OF EXAM: Jan 19 2025 9:04PM [facility] 0504 - CT BRAIN WO IVCON / PROCEDURE REASON: Head trauma, moderate-severe * * * * Physician Interpretation * * * * EXAMINATION: CT BRAIN WO IVCON, CT CERVICAL SPINE WO IVCON CLINICAL HISTORY: Head trauma, moderate-severe - - Head trauma, moderate-severe (accession [id number]), Neck trauma, uncomplicated (NEXUS/CCR neg) (Age 16-64y) (accession [id number]) - TECHNIQUE: CT head and cervical spine without contrast. MQ: CTBCSWO_3 Dose-Length Product (DLP): 706.22 (accession [id number]), 154.36 (accession [id number]) mGy*cm CT Dose Reduction Employed: Automated exposure [...] vertebrae with counting from the craniocervical junction. Engineering Production Liaison: PSCB Transcribe Date/Time: Jan 19 2025 9:06P Dictated by : KERRIE WARNER MD This examination was interpreted and the report reviewed and electronically signed by: KERRIE WARNER MD on Jan 19 2025 9:15PM EST [id number] Normal [facility] CT CERVICAL SPINE WO IVCONon 01-19-2025 CT CERVICAL SPINE WO IVCON * * *Final Report* * * DATE OF EXAM: Jan 19 2025 9:04PM [facility] 0505 - CT CERVICAL SPINE WO IVCON / PROCEDURE REASON: Neck trauma, uncomplicated (NEXUS/CCR neg) (Age 16-64y) * * * * Physician Interpretation * * * * EXAMINATION: CT BRAIN WO IVCON, CT CERVICAL SPINE WO IVCON CLINICAL HISTORY: Head trauma, moderate-severe - - Head trauma, moderate-severe (accession [id number]), Neck trauma, uncomplicated (NEXUS/CCR neg) (Age 16-64y) (accession [id number]) - TECHNIQUE: CT head and cervical spine without contrast. MQ: CTBCSWO_3 Dose-Length Product (DLP): 706.22 (accession [id number]), 154.36 (accession [id number]) mGy*cm CT Dose Reduction Employed: Automated exposure [...] vertebrae with counting from the craniocervical junction. Engineering Production Liaison: PSCB Transcribe Date/Time: Jan 19 2025 9:06P Dictated by : KERRIE WARNER MD This examination was interpreted and the report reviewed and electronically signed by: KERRIE WARNER MD on Jan 19 2025 9:15PM EST [id number] [facility] ED NOTEon 01-19-2025 ED NOTE HNO ID: [id number] Author: FLORIDALMA SZYMANSKI RN Service: Emergency Medicine Author Type: Registered Nurse Type: ED Notes Filed: 01/19/2025 23:50 Note Text: Oxygen started at 2L/NC per request from Dr. Maurer for sats staying around 90% on RA [facility] ED NOTE HNO ID: [id number] Author: FLORIDALMA SZYMANSKI RN Service: Emergency Medicine Author Type: Registered Nurse Type: ED Notes Filed: 01/19/2025 23:45 Note Text: Patient informed: the name of medication, why we are giving it, possible side effects, what they may expect to feel, and was offered a chance to ask questions, prior to the administration of fentanyl [facility] ED NOTE HNO ID: [id number] Author: FLORIDALMA SZYMANSKI, RN Service: Emergency Medicine Author Type: Registered Nurse Type: ED Notes Filed: 01/19/2025 23:08 Note Text: Called [facility] for transport eta 1 hour [facility] ED NOTE HNO ID: [id number] Author: FLORIDALMA SZYMANSKI RN Service: Emergency Medicine Author Type: Registered Nurse Type: ED Notes Filed: 01/19/2025 23:04 Note Text: 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 Peters [facility] ED NOTE HNO ID: [id number] Author: FLORIDALMA SZYMANSKI, AUGUSTIN Service: Emergency Medicine Author Type: Registered Nurse Type: ED Notes Filed: 01/19/2025 22:38 Note Text: Drr. Maurer speaking with kimber Martinez implementation lead for Dr. Grier from [facility] per pt request Normal [facility] ED NOTE HNO ID: [id number] Author: DWIGHT YOUNEGR, AUGUSTIN Service: ? Author Type: Registered Nurse Type: ED Notes Filed: 01/19/2025 19:00 Note Text: Pt fell from standing position while she was at dinner at the [employer]. Pt hit her head but denies loc, but does have dizziness. Pt c/o pain in r hand and r hip. Pt is also positive for covid Normal [facility] ED PROV NOTEon 01-19-2025 ED PROV NOTE HNO ID: [id number] Author: RUSSEL MAURER MD Service: Emergency Medicine [...] (more content not included)... Normal [facility] XR CHEST 1V FRONTALon 2024 XR [...] and spine. IMPRESSION: No acute radiographic abnormality. Engineering Production Liaison: EMMY Transcribe Date/Time: Jan 19 2025 10:19P Dictated by : CYN MORAGN DO This examination was interpreted and the report reviewed and electronically signed by: CYN MORGAN DO on Jan 19 2025 10:19PM EST [id number] Normal [facility] XR HAND 3V PA/LAT/OBL RTon 1 [...] PELV+ AP/LAT RT CLINICAL HISTORY: Trauma (accession [id number]), Hip pain, acute, fx suspected, initial exam (accession [id number]) Technique: XR HAND 3V PA/LAT/OBL RT, XR [...] concerning for impacted right femoral neck fracture. Engineering Production Liaison: PSCB Transcribe Date/Time: Jan 19 2025 10:16P Dictated by : JANNIE TOMLINSON MD This examination was interpreted and the report reviewed and electronically signed by: JANNIE TOMLINSON MD on Jan 19 2025 10:19PM EST [id number] Normal [facility] XR HIP 3V PELV+ AP/LAT RTon [...] PELV+ AP/LAT RT CLINICAL HISTORY: Trauma (accession [id number]), Hip pain, acute, fx suspected, initial exam (accession [id number]) Technique: XR HAND 3V PA/LAT/OBL RT, XR [...] concerning for impacted right femoral neck fracture. Engineering Production Liaison: PSCB Transcribe Date/Time: Jan 19 2025 10:16P Dictated by : JANNIE TOMLINSON MD This examination was interpreted and the report reviewed and electronically signed by: JANNIE TOMLINSON MD on Jan 19 2025 10:19PM EST [id number] [facility] ([id number]) 1940 F Date Time Provider Department 12/29/24 [...] Status:Closed by ISABEL JOYA on 12/29/24 Normal [facility] - Chemistry and C hemistry - challengeOrdered By: Alexandria Dejesus on 12-28-2024 Bilirubin Ql (U) Negative [facility] Glucose Ql (U) Negative [facility] Ketones Ql (U) Negative [facility] pH (U) 6 [pH] [facility] Specific gravity (U) [Rel density] 1.015 [facility] Urobilinogen (U) [Mass/Vol] Negative [facility] - Hematology and Cell countsOrdered By: Alexandria Dejesus on 12-28-2024 Hemoglobin Ql (U) Negative [facility] - UrinalysisOrder ed By: Alexandria Dejesus on 12-28-2024 Nitrite Ql (U) Negative [facility] Protein Ql (U) Trace [facility] MR/Beau 12-28-2024 /BOUBACAR [facility] [address], [address] [place] [address] OFFICE VISIT Date of Service: 12/28/24 MR#: [id number] Acct: [id number] Name: MONISHA COHN Rep #: [id number] : 1940 Provider: Dr. 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 Normal [facility] No Panel InformationOrdered By: Alexandria Dejesus on 12-28-2024 Urine Leukocytes Negatve [facility] Urine Non-Hemolyzed Blood Negative [facility] Cardiovascular stress test r eportOrdered By: Danielle Vernon on 11-07-2024 Study report [facility] [address] [place] [address] MR#: [id number] Acct: [id number] Name: MONISHA COHN Rep #: [id number] : 1940 84 From: Danielle Vernon [...] be obtained. This note was generated with shoply dictation software. It may contain incorrectwords, spelling, and punctuation that were not noted in checking the note beforesigning. 11/07/241427 Date _ Danielle Vernon MD CC: Dr. Danielle Vernon MD; Tressa Bobby ~ Date Dictated: 11/07/241426 Date Transcribed: 11/07/241426 Engineering Production Liaison: EVANGELINA Wiseman [facility] Work Phone: Echocardiogram study reportO rdered By: Danielle Vernon on 11-07-2024 Study report [facility] Cardiovascular Services [address] [place] [address] Echo Complete 11/03/24928 MR#: [id number] Acct: [id number] Name: MONISHA COHN Rep #:[id number] : 1940 84 From: Danielle Vernon MD Attending Dr: Dr. Danielle Vernon MD Status: REG CLI Ordering Dr: Danielle Vernon MD Date: Location: [facility] Sex: F C Admitted: Reason For [...] Date Dictated: 11/03/24928 Date Transcribed: 07/28/25 1248 Engineering Production Liaison: Signed [facility] Work Phone: Stress Reporton 11-07-2024 Stress Report [facility] Cardi[facility] Services [place] [address] MR#: [id number] Acct: [id number] Name: MONISHA COHN Rep #: [id number] : 1940 84 From: Danielle Vernon MD [...] be obtained. This note was generated with GrupHediyeation software. It may contain incorrect words, spelling, and punctuation that were not noted in checking the note before signing. 11/07/241427 Date Danielle Vernon MD CC: Dr. Danielle Vernon MD; Tressa Rosales Date Dictated: 11/07/241426 Date Transcribed: 11/07/241426 Engineering Production Liaison: EVANGELINA Signed Normal [facility] Echo Completeon 11-03-2024 Echo Complete [facility] Cardiovascular Services [address] [place] [address] Echo Complete 11/03/24 0929 MR#: [id number] Acct: [id number] Name: MONISHA COHN Rep #: [id number] : 1940 84 From: Danielle Vernon MD Attending Dr: Dr. Danielle Vernon MD Status: REG CLI Ordering Dr: Danielle Vernon MD Date: 11/03/24 Location: [facility] Sex: F C Admitted: Reason For [...] Bobby Date Dictated: 11/03/24928 Date Transcribed: 11/07/241247 Engineering Production Liaison: Signed Normal [facility] Cardiology Visit Reporton Cardiology Visit Report [facility] [address] [place] [address] OFFICE VISIT Date of Service: 09/27/24 MR#: [id number] Acct: [id number] Name: MONISHA COHN Rep #: [id number] : 1940 Provider: Dr. 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 Normal [facility] CNOVon 07-29-2024 CNOV Office Visit (NMMBHT ) MONISHA COHN ([id number]) 1940 F Date Time Provider Department 07/29/24 3:00 PM ARMEN MADISON During your visit today, we recorded the following information about you: Pulse Blood pressure 68/minute 110/65 Armen [facility] MD 07/29/2024 3:33 PM Signed [facility] New Patient Visit Note Consultation [...] further r (more content not included)... Normal [facility] Folate SerPl-mCncon 07-30-19 25 Folate [Mass/Vol] 6.2 ng/mL Normal >4.7 [facility] Comment on above: Order Comment: Liza granados Type: BLOOD SPECIMEN Ordering Facility: [facility] Address: [address] [place] [address] Performed By: #### 2 284-8, 2132-9 #### [facility] CLIA [id number] [address] [place] [address] [place] HbA1c (Bld)on 07-29-2024 Average glucose Estimated from glycated hemoglobin (Bld) [Mass/Vol] 100 mg/dL Normal [facility] Comment on above: Order Comment: Liza granados Type: BLOOD SPECIMEN Ordering Facility: [facility] Address: [address] [place] [address] Result Comment: eAG: (Estimated average glucose) is a calculated value from HgbA1c and is district sales representative of the average blood glucose level in the last 2-3 month period. Performed By: #### 5 5454-3 #### [facility] CLIA [id number] [address] [place] [address] [place] HbA1c (Bld) [Mass fraction] 5.1 % Normal 4.3-5.6 [facility] Comment on above: Order Comment: Liza granados Type: BLOOD SPECIMEN Ordering Facility: [facility] Address: [address] [place] [address] Result Comment: Amer ican Diabetes Association guidelines indicate that patients with HgbA1c in the range 5.7-6.4% are at increased risk for development of diabetes, and intervention by lifestyle modification may be beneficial. HgbA1c greater or equal to 6.5% is considered diagnostic of diabetes. Performed By: #### 5 5454-3 #### [facility] CLIA [id number] [address] [place] [address] IMMUNOFIXATION SCREEN, SERUM on 07-29-2024 INTERPRETATION (MPA) Atypical restricted bands are present in the IgG and lambda regions. Consistent with IgG lambda monoclonal gammopathy. Normal [facility] Comment on above: Order Comment: Liza granados Type: BLOOD SPECIMEN Ordering Facility: [facility] Address: [address] [place] [address] Performed By: #### I FESC #### [facility] CLIA [id number] [address] [place] [address] STATES OF [facility] MPA RESULT M protein is present. Abnormal No M p rotein is identified. [facility] Comment on above: Order Comment: Liza granados Type: BLOOD SPECIMEN Ordering Facility: [facility] Address: [address] [place] [address] Performed By: #### I FESC #### [facility] CLIA [id number] [address] [place] [address] OF [facility] STAFF REVIEW (MPA) Reviewed by Beatriz Estes M.D., Ph.D Normal [facility] Comment on above: Order Comment: Liza granados Type: BLOOD SPECIMEN Ordering Facility: [facility] Address: [address] [place] [address] Performed By: #### I FESC #### [facility] CLIA [id number] [address] [place], [place] [address] [place] KAPPA/ZIMMERMAN,FREE,SERon 2024 Immunoglobulin light chains.kappa.free (S) [Mass/Vol] 20.0 mg/L High 3.3-19.4 [facility] Comment on above: Order Comment: Speci roberta Type: BLOOD SPECIMEN Ordering Facility: [facility] Address: [address] [place] [address] Result Comment: Rare ly, increased serum free light chains levels may not be detected or accurately quantified due to prozone phenomenon or in high viscosity samples using this immunoturbidimetric assay. Correlation with other laboratory results and clinical findings is recommended. The [place] Free Light Chain was performed using the Binding Site Optilite immunoturbidimetric method. Result obtained with different assay methods or kits cannot be used interchangeably. Performed By: #### K LFRS #### [facility] CLIA [id number] [address] [place] [address] [place] Immunoglobulin light chains.kappa/Immunoglobu lacey light chains.lambda (S) [Mass ratio] 0.16 Low 0.26-1.65 [facility] Comment on above: Order Comment: Specmiguel granados Type: BLOOD SPECIMEN Ordering Facility: [facility] Address: [address] [place] [address] Performed By: #### K LFRS #### [facility] CLIA [id number] [address] [place] [address] [place] Immunoglobulin light chains.lambda.free [Mass/Vol] 121.8 mg/L High 5.7-26.3 [facility] Comment on above: Order Comment: Liza granados Type: BLOOD SPECIMEN Ordering Facility: [facility] Address: [address] [place] [address] Result Comment: Rare ly, increased serum free [...] interchangeably. Performed By: #### K LFRS #### [facility] CLIA [id number] [address] [place] [address] [place] Methylmalonate SerPl-sCncon 07-29-2024 Methylmalonate [Moles/Vol] 0.18 umol/L Normal <=0.40 [facility] Comment on above: Order Comment: Liza granados Type: BLOOD SPECIMEN Ordering Facility: [facility] Address: [address] [place] [address] Result Comment: This test was developed, and its performance characteristics determined by the [facility] Department of Pathology and Laboratory Medicine. It has not been cleared or approved by the FDA. The [facility] Department of Pathology and Laboratory Medicine is regulated under CLIA as qualified to perform high-complexity testing. This test is used for clinical purposes. It should not be regarded as investigational or for research. Performed By: #### 1 3964-2 #### [facility] CLIA [id number] [address] [place] [address] [place] VITAMIN B1 (THIAMINE), WHOLE BLOODon 07-29-2024 Thiamine (Bld) [Moles/Vol] 118.7 nmol/L Normal 84.3-213.3 [facility] Comment on above: Order Comment: Liza granados Type: BLOOD SPECIMEN Ordering Facility: [facility] Address: [address] [place] [address] Result Comment: This assay measures the concentration of thiamine diphosphate (TDP), the primary active form of vitamin B1. Approximately 90 percent of vitamin B1 present in whole blood is TDP. Thiamine and thiamine monophosphate, which comprise the remaining 10 percent, are not measured. This test was developed, and its performance characteristics determined by the [facility] Department of Pathology and Laboratory Medicine. It has not been cleared or approved by the FDA. The [facility] Department of Pathology and Laboratory Medicine is regulated under CLIA as qualified to perform high-complexity testing. This test is used for clinical purposes. It should not be regarded as investigational or for research. Performed By: #### B 1WB #### [facility] CLIA [id number] [address] [place] [address] [place] Vit B12 SerPl-mCncon 025 Cobalamin (Vitamin B12) [Mass/Vol] 876 pg/mL Normal 232-1245 [facility] Comment on above: Order Comment: Speci men Type: BLOOD SPECIMEN Ordering Facility: [facility] Address: [address] [place] [address] Performed By: #### 2 284-8, 2132-9 #### [facility] CLIA [id number] [address] [place] [address] CNOVon 06-28-2024 CNOV Office Visit (NRMDN) MONISHA COHN ([id number]) 1940 F Date Time Provider Department 06/28/24 8:00 AM EM FLYNN NRHANH During your visit today, we recorded the following information about you: Pulse Blood pressure Weight Height 76/minute 112/74 70.5 kg 1.575 m Em Flynn APRN.CNP 06/28/2024 11:22 PM Signed [facility] - FOLLOW UP EVALUATION The patient consented to the use of ambient Nomacorc software for draft documentation of the visit consistent with [facility]?s Notice of Privacy Practices. Alexandra Arreguin APRN.CASE PACKER [address] [address] Dear Alexandra Arreguin APRN.CASE PACKER: I had the pleasure of seeing Ms. [...] directives (living will and durable power of privacy attorney for healthcare): By Email: Send your document(s) to [email or web address] as an attachment in either PDF, TIFF, or JPEG format. By Mail: [facility] Information Management, [employer]7 Advance Directive Processing [address] [place], [place] [address] By In person at any [facility] location Please note: You can use the address or fax number regardless of which [facility] you utilize, and we will make [...] she find (more content not included)... Normal [facility] Hepatobilliary Img w/Pharm I nton 06-03-2024 Hepatobilliary Img w/Pharm Int [facility] Imaging Services [address] [place], [place] [address] Hepatobilliary Img w/Pharm Int MR#: [id number] Acct: [id number] Name: MONISHA COHN Rep #: [id number] : 1940 F 84 From: Hong byrne MD PCP: Tressa Rosales Status: REG CLI Study: Hepatobilliary Img w/Pharm Int Date of Exam: 0 06/03/24 Exam# [id number] Ordering Dr: Didi Lujan [facility] TECH N P-C PROCEDURE: HEPATOBILLIARY IMG W/PHARM INT [...] SCAN AND GALLBLADDER EJECTION FRACTION. Reading Location: [place] [address] CC: Didi Lujan; Tressa Rosales Engineering Production Liaison: Signed Normal [facility] Cardiology Visit Reporton Cardiology Visit Report [facility] [address] [place] [address] OFFICE VISIT Date of Service: 03/16/24 MR#: [id number] Acct: [id number] Name: MONISHA COHN Rep #: [id number] : 1940 Provider: Dr. Danielle Vernon MD Age/Sex: 83/F Location: [facility] Status: Signed HPI HPI History of [...] NIBP Intake Visit Reasons: 6 M FU Container Washer Required: No Accompanied by: Is patient in [...] denosumab 60 mg/mL subcutaneous 60 mg subcut [id number] 03/16/24 03/16/24 History syringe hydroxyzine HCl 25 [...] in the past year?: Yes (Hip Fx) [facility] Medical History Atherosclerotic heart disease of saxman coronary artery without angina pectoris Bladder spasms [...] distress and (more content not included)... Normal [facility] Large Joint Arthro/Inj: L sh ould jointon [...] the patient voiced understanding of these instructions. [facility] XR Shoulder - left 3 Viewson 10-01-2023 IMPRESSION: Degenerative changes with chronic rotator cuff tear. Engineering Production Liaison: [facility] Transcribe Date/Time: Oct 01 2023 6:45A Dictated by : SHENA OAKLEY MD This examination was interpreted and the report reviewed and electronically signed by: SHENA OAKLEY MD on Oct 01 2023 6:46AM EST [facility] * * *Final Report* * * [...] rotator cuff tear. No fracture or dislocation. [facility] Provider, [facility] - 10/01/2023 [...] Degenerative changes with chronic rotator cuff tear. Engineering Production Liaison: EMMY Transcribe Date/Time: Oct 01 2023 6:45A Dictated by : SHENA OAKLEY MD This examination was interpreted and the report reviewed and electronically signed by: SHENA OAKLEY MD on Oct 01 2023 6:46AM EST [facility] XR Shoulder - left 3 ViewsOr dered By: [facility] Provider on 10-01-2023 [facility] XR SHLDR >/=3V AP/KIERA AP/OTH R [...] Degenerative changes with chronic rotator cuff tear. Engineering Production Liaison: PSCB Transcribe Date/Time: Oct 01 2023 6:45A Dictated by : SHENA OAKLEY MD This examination was interpreted and the report reviewed and electronically signed by: SHENA OAKLEY MD on Oct 01 2023 6:46AM EST [id number] [facility] XR Shoulder - left 3 Viewson 09-29-2023 Radiology Study [facility]narrative) [facility] DIAG W JOHN PAUL LTon 024 [facility] DIAG W JOHN PAUL LT * * *Final Report* * * DATE OF EXAM: Sep 23 2023 9:39AM JOSÉ LUIS 0628 - [facility] DIAG W JOHN PAUL LT / PROCEDURE REASON: R92.2 INCONCLUSIVE MAMMOGRAM * * * * Physician Interpretation * * * * #[id number] - [facility] DIAG W JOHN PAUL LT #[id number] - [facility] BREAST LTD LT UNILATERAL LEFT DIGITAL [...] Comparison is made to exam dated: 08/13/2023 [facility]. The left breast is almost [...] Comparison is made to exam dated: 08/13/2023 [facility]. Ultrasound of was performed. Imaging [...] Health, Family Medicine, and Medical/Surgical Oncology, the [facility] has carefully reviewed the data and [...] their providers when to stop screening mammograms. Biomathematician(s): Rafia Wagner RT(R)(M), [facility]; RT Nicole(R), [facility] OVERALL STUDY BIRADS: 2 Benign finding Engineering Production Liaison: Gi Transcribe Date/Time: Sep 23 2023 9:21A Dictated by : AJAY BULLOCK MD This examination was interpreted and the report reviewed and electronically signed by: AJAY BULLOCK MD on Sep 23 2023 10:55AM EST [id number] Normal [facility] US BREAST LTD LTon 09-22 [facility] Chasqui Bus BREAST LTD LT * * *Final Report* * * DATE OF EXAM: Sep 23 2023 10:32AM JASPREET 0593 - [facility] [employer] BREAST LTD LT / PROCEDURE REASON: Abnormal mammogram * * * * Physician Interpretation * * * * #[id number] - [facility] DIAG W JOHN PAUL LT #[id number] - [facility] [employer] BREAST LTD LT UNILATERAL LEFT DIGITAL DIAGNOSTIC [...] made to exam dated: 08/13/2023 mammogram - [facility]. The left breast is almost entirely [...] made to exam dated: 08/13/2023 mammogram - [facility]. Ultrasound of was performed. Imaging was [...] mammogram screening schedule is recommended. Ajay BENITEZ, [facility]/gi:09/23/2023 10:55:35 Multiple national specialty organizations have released breast cancer screening guidelines for women at average risk for developing breast cancer - guidelines that are based on both evidence and opinion, yet differ on when to start and how often to screen for breast cancer. With representation from Breast Imaging, Internal Medicine, Women's Health, Family Medicine, and Medical/Surgical Oncology, the [facility] has carefully reviewed the data and [...] their providers when to stop screening mammograms. Biomathematician(s): Rafia Wagner RT(R)(M), [facility]; RT Nicole(R), [facility] OVERALL STUDY BIRADS: 2 Benign finding Engineering Production Liaison: Gi Transcribe Date/Time: Sep 23 2023 9:21A Dictated by : AJAY BULLOCK MD This examination was interpreted and the report reviewed and electronically signed by: AJAY BULLOCK MD on Sep 23 2023 10:55AM EST [id number] Normal [facility] US Breast - left limitedon 0 09-23-2023 * * *Final Report* * * DATE OF EXAM: Sep 23 2023 10:32AM JASPREET 0593 - [facility] [employer] BREAST LTD LT / PROCEDURE REASON: Abnormal mammogram * * * * Physician Interpretation * * * * #[id number] - [facility] DIAG W JOHN PAUL LT #[id number] - [facility] US BREAST LTD LT UNILATERAL LEFT [...] made to exam dated: 08/13/2023 mammogram - [facility]. The left breast is almost entirely [...] other findings are seen in the breast. [facility] Provider, Marko [facility] [place] - 09/23/2023 * * *Final Report* * * DATE OF EXAM: Sep 23 2023 10:32AM JASPREET 0593 - [facility] webme LTD LT / PROCEDURE REASON: Abnormal mammogram * * * * Physician Interpretation * * * * #[id number] - [facility] DIAG W JOHN PAUL LT #[id number] - [facility] [employer] BREAST LTD LT UNILATERAL LEFT DIGITAL DIAGNOSTIC [...] Comparison is made to exam dated: 08/13/2023 [facility]. The left breast is almost [...] Comparison is made to exam dated: 08/13/2023 [facility]. Ultrasound of was performed. Imaging [...] schedule is recommended. Ajay Bullock M.D. FACR, [facility]/gi:09/23/2023 10:55:35 Multiple national specialty organizations have released breast cancer screening guidelines for women at average risk for developing breast cancer - guidelines that are based on both evidence and opinion, yet differ on when to start and how often to screen for breast cancer. With representation from Breast Imaging, Internal Medicine, Women's Health, Family Medicine, and Medical/Surgical Oncology, the [facility] has carefully reviewed the data and [...] their providers when to stop screening mammograms. Biomathematician(s): RT Yumiko(R)(M), [facility]; RT Nicole(R), [facility] OVERALL STUDY BIRADS: 2 Benign finding Engineering Production Liaison: Gi Transcribe Date/Time: Sep 23 2023 9:21A Dictated by : AJAY BULLOCK MD This examination was interpreted and the report reviewed and electronically signed by: AJAY BULLOCK MD on Sep 23 2023 10:55AM EST [facility] Radiology Study observation (narrative) [facility] US Breast - left limitedOrde red By: [facility] Provider on 09-23-2023 [facility] BD DXA - AXIAL SKELETONon BD [...] years, Gender: Female SCANNER INFORMATION: DXA Model: Skoodat [id number] Date Scanned: 08/13/2023 2:25 PM CLINICAL HISTORY: [...] had a previous bone density in the [facility] or the previous bone density was performed on a different DXA machine (new, updated model or different location) within the [facility]. VERTEBRAL FRACTURE ASSESSMENT Not performed. TRABECULAR [...] FOR MORE INFORMATION ABOUT DIAGNOSIS AND TREATMENT: [facility]osis [facility] Metabolic Bone Disease:? www.ccf.org/arthritis/ osteo National Osteoporosis Foundation:? www.nof.org International Society of Clinical Densitometry www.iscd.org Engineering Production Liaison: EMMY Transcribe Date/Time: Aug 14 2023 8:30A Dictated by : SHENA OAKLEY MD This examination was interpreted and the report reviewed and electronically signed by: SHENA OAKLEY MD on Aug 14 2023 8:31AM EST [id number] [facility] SCREENINGon 08-13-2023 [facility] SCREENING * * *Final Report* * * DATE OF EXAM: Aug 13 2023 2:10PM JOSÉ LUIS 0581 - [facility] SCREENING / PROCEDURE REASON: Z12.31 SCREENING MAMMOGRAM * * * * Physician Interpretation * * * * #[id number] - [facility] SCREENING BILATERAL DIGITAL SCREENING MAMMOGRAM WITH [...] possible ultrasound are recommended. Jayleen spears/gi:08/14/2023 11:00:52 Biomathematician(s): RT Maribel(Carla)(M), [facility] letter sent: Additional Imaging Needed Mammogram BI-RADS: 0 Incomplete: needs additional imaging evaluation If this report indicates you need additional imaging, and it has NOT yet been performed, please call , to schedule. We sincerely thank you for choosing the [facility] for your breast imaging needs. Multiple [...] Health, Family Medicine, and Medical/Surgical Oncology, the [facility] has carefully reviewed the data and [...] their providers when to stop screening mammograms. Engineering Production Liaison: Gi Transcribe Date/Time: Aug 13 2023 1:56P Dictated by : JAYLEEN CASTELLANOS MD This examination was interpreted and the report reviewed and electronically signed by: JAYLEEN CASTELLANOS MD on Aug 14 2023 11:00AM EST [id number] [facility] MR Cervical spine WO contras ton 07-29-2023 [facility] Absolute lymphocyte countOrd ered By: Law Gold on 05-01-2023 Lymphocytes Auto (Unsp spec) [#/Vol] 1.22 10*3/uL 0.83-4.51 [facility] Activated partial thrombopla stin time (aPTT) in platelet poor plasma by coagulation aOrdered By: Law Gold on 05-01-2023 aPTT Coag (PPP) [Time] 23.0 s 24.1-36.2 [facility] Automated lymphocyte count a s percentage of total leukocytesOrdered By: Law Gold on 05-01-2023 Lymphocytes/100 WBC Auto (Unsp spec) 19.9 % 19-41 [facility] Basophil percentageOrdered B y: Law Gold on 05-01-2023 Basophils/100 WBC (Bld) 0.8 % 0-1 [facility] Chloride [Moles/Vol] 106 mmol/L 98-107 [facility] Eosin[facility]/100 WBC (Bld) 5.2 % 0-5 [facility] Glucose [Mass/Vol] 87 mg/dL 74-106 [facility] Hemoglobin (Bld) [Mass/Vol] 10.7 g/dL 12.0-15.0 [facility] Monocytes/100 WBC (Bld) 11.6 % 0-10 [facility] Neutrophils (Bld) [#/Vol] 3.8 10*3/uL 2.0-7.7 [facility] Neutrophils/100 WBC (Bld) 62.2 % 47-70 [facility] Potassium [Moles/Vol] 4.4 mmol/L 3.5-5.1 [facility] Sodium [Moles/Vol] 139 mmol/L 136-145 [facility] WBC (Bld) [#/Vol] 6.1 10*3/uL 4.4-11.0 [facility] Determination of erythrocyte mean corpuscular volume (MCV)Ordered By: Law Gold on 05-01-2023 MCV (RBC) [Entitic vol] 90.3 fL 81-99 [facility] Erythrocyte distribution wid th ratioOrdered By: Law Gold on 05-01-2023 Erythrocyte distribution width (RBC) [Ratio] 13.2 % 11.6-14.6 [facility] Erythrocyte distribution wid th standard deviationOrdered By: Law Gold on 05-01-2023 Erythrocyte distribution width (RBC) [Entitic vol] 43.1 fL 35.1-43.9 [facility] Hematocrit Auto (Bld) [Volum e fraction]Ordered By: Law Gold on 05-01-2023 Hematocrit (Bld) [Volume fraction] 34.3 % 37-47 [facility] Immature granulocytes/100 WB C Auto (Bld)Ordered By: Law Gold on 05-01-2023 Immature granulocytes/100 WBC (Bld) 0.300 % 0.0-0.9 [facility] Comment on above: IG% - Immature Granu locytes (promyelocytes, myelocytes and metamyelocytes) > 1% indicates that a LEFT SHIFT is Present. International normalized rat io (INR) calculationOrdered By: Law Gold on 05-01-2023 INR Coag (PPP) [Relative time] 1.3 {INR} [facility] Laboratory - Chemistry and C hemistry - challengeOrdered By: Law Gold on 05-01-2023 CO2 [Moles/Vol] 28.0 mmol/L 21.0-32.0 [facility] Urea nitrogen/Creatinine [Mass ratio] 18.9 mg/mg 10-20 [facility] - CoagulationOrde red By: Law Gold on 05-01-2023 PT Coag (PPP) [Time] 16.1 s 11.7-14.9 [facility] Laboratory - Hematology and Cell countsOrdered By: Law Gold on 05-01-2023 MCH (RBC) [Entitic mass] 28.2 pg 27.0-32.0 [facility] MCHC (RBC) [Mass/Vol] 31.2 g/dL 32-36 [facility] Nucleated RBC/100 WBC (Bld) [Ratio] 0 % 0-5 [facility] Platelets (Bld) [#/Vol] 311 10*3/uL 150-450 [facility] No Panel InformationOrdered By: Law Gold on 05-01-2023 Estimated Creatinine Clearance Calc 51.35 ml/min [facility] Estimated GFR (MDRD) Amer 89 mL/min >60 [facility] Comment on above: GFR Calc Estimated GFR (MDRD) Non-Af Amer 74 mL/min >60 [facility] Comment on above: Non- GFR Calc Platelet mean volume [place] (Bld) [Entitic vol]Ordered By: Law Gold on 05-01-2023 Platelet mean volume (Bld) [Entitic vol] 8.4 fL 6.2-12.0 [facility] RBC Auto (Bld) [#/Vol]Ordere d By: Law Gold on 05-01-2023 RBC (Bld) [#/Vol] 3.80 10*6/uL 4.2-5.4 [facility] Serum or plasma calcium taylor urement (mass/volume)Ordered By: Law Gold on 05-01-2023 Calcium [Mass/Vol] 8.9 mg/dL 8.5-10.1 [facility] Serum or plasma creatinine m easurement (mass/volume)Ordered By: Law Gold on 05-01-2023 Creatinine [Mass/Vol] 0.79 mg/dL 0.55-1.02 [facility] Comment on above: The validity of the calculated GFR & GFRAA in patients over 70 years has not been determined. Clinical correlation is essential. Serum or plasma urea nitroge n measurement (mass/volume)Ordered By: Law Gold on 05-01-2023 Urea nitrogen [Mass/Vol] 15 mg/dL 7-18 [facility] Thin prep Papanicolaou smear with manual screeningOrdered By: Law Gold on 05-01-2023 Thin prep Papanicolaou smear with manual screening 5 5-15 [facility] Absolute lymphocyte countOrd ered By: Darline Lundy on 02-06-2023 Lymphocytes Auto (Unsp spec) [#/Vol] 2.15 10*3/uL 0.83-4.51 [facility] Basophil percentageOrdered B y: Darline Lundy on 02-06-2023 Basophils/100 WBC (Bld) 0.4 % 0-1 [facility] Chloride [Moles/Vol] 108 mmol/L 98-107 [facility] Eosinophils/100 WBC (Bld) 2.6 % 0-5 [facility] Glucose [Mass/Vol] 90 mg/dL 74-106 [facility] Neutrophils (Bld) [#/Vol] 3.9 10*3/uL 2.0-7.7 [facility] Neutrophils/100 WBC (Bld) 55.6 % 47-70 [facility] Potassium [Moles/Vol] 4.2 mmol/L 3.5-5.1 [facility] Sodium [Moles/Vol] 140 mmol/L 136-145 [facility] WBC (Bld) [#/Vol] 7.0 10*3/uL 4.4-11.0 [facility] Blood erythrocytes count (nu mber/volume)Ordered By: Darline Lundy on 02-06-2023 RBC (Bld) [#/Vol] 2.47 10*6/uL 4.2-5.4 [facility] Blood hemoglobin measurement (mass/volume)Ordered By: Darline Lundy on 02-06-2023 Hemoglobin (Bld) [Mass/Vol] 7.8 g/dL 12.0-15.0 [facility] Blood lymphocytes/100 leukoc ytesOrdered By: Darline Lundy on 02-06-2023 Lymphocytes/100 WBC (Bld) 30.5 % 19-41 [facility] Blood monocytes/100 leukocyt esOrdered By: Darline Lundy on 02-06-2023 Monocytes/100 WBC (Bld) 10.2 % 0-10 [facility] Blood platelet mean volumeOr dered By: Darline Lundy on 02-06-2023 Platelet mean volume (Bld) [Entitic vol] 8.9 fL 6.2-12.0 [facility] COVID-19 virus antigen assay Ordered By: Darline Lundy on 02-06-2023 SARS-CoV-2 (COVID-19) Ag IA.rapid Ql (Resp) [facility] SARS-CoV-2 (COVID-19) Ag IA.rapid Ql (Resp) [facility] Determination of erythrocyte mean corpuscular volume (MCV)Ordered By: Darline Lundy on 02-06-2023 MCV (RBC) [Entitic vol] 90.7 fL 81-99 [facility] Hematocrit Auto (Bld) [Volum e fraction]Ordered By: Darline Lundy on 02-06-2023 Hematocrit (Bld) [Volume fraction] 22.4 % 37-47 [facility] Laboratory - Chemistry and C hemistry - challengeOrdered By: Darline Lundy on 02-06-2023 CO2 [Moles/Vol] 29.0 mmol/L 21.0-32.0 [facility] Urea nitrogen/Creatinine [Mass ratio] 25.2 mg/mg 10-20 [facility] Laboratory - Hematology and Cell countsOrdered By: Darline Lundy on 02-06-2023 Erythrocyte distribution width (RBC) [Entitic vol] 45.7 fL 35.1-43.9 [facility] Erythrocyte distribution width (RBC) [Ratio] 14.2 % 11.6-14.6 [facility] Immature granulocytes/100 WBC (Bld) 0.700 % 0.0-0.9 [facility] Comment on above: IG% - Immature Granu locytes (promyelocytes, myelocytes and metamyelocytes) > 1% indicates that a LEFT SHIFT is Present. MCH (RBC) [Entitic mass] 28.7 pg 27.0-32.0 [facility] Nucleated RBC/100 WBC (Bld) [Ratio] 0 % 0-5 [facility] MCHC Auto (RBC) [Mass/Vol]Or dered By: Darline Lundy on 02-06-2023 MCHC (RBC) [Mass/Vol] 31.7 g/dL 32-36 [facility] Comment on above: Delta: 33.5 on 02/0540 No Panel InformationOrdered By: Darline Lundy on 02-06-2023 Estimated Creatinine Clearance Calc 34.90 ml/min [facility] Estimated GFR (MDRD) Amer 115 mL/min >60 [facility] Comment on above: GFR Calc Estimated GFR (MDRD) Non-Af Amer 95 mL/min >60 [facility] Comment on above: Non- GFR Calc Platelets bldOrdered By: Maribeth Lundy on 02-06-2023 Platelets (Bld) [#/Vol] 227 10*3/uL 150-450 [facility] Serum or plasma calcium taylor urement (mass/volume)Ordered By: Darline Lundy on 02-06-2023 Calcium [Mass/Vol] 7.9 mg/dL 8.5-10.1 [facility] Serum or plasma creatinine m easurement (mass/volume)Ordered By: Darline Lundy on 02-06-2023 Creatinine [Mass/Vol] 0.64 mg/dL 0.55-1.02 [facility] Comment on above: The validity of the calculated GFR & GFRAA in patients over 70 years has not been determined. Clinical correlation is essential. Serum or plasma urea nitroge n measurement (mass/volume)Ordered By: Darline Lundy on 02-06-2023 Urea nitrogen [Mass/Vol] 16 mg/dL 7-18 [facility] Thin prep Papanicolaou smear with manual screeningOrdered By: Darline Lundy on 02-06-2023 Thin prep Papanicolaou smear with manual screening 3 5-15 [facility] Blood manual differential co mment interpretation (narrative result)Ordered By: Darline Lundy on 02-03-2023 Manual differential comment Enrique (Bld) [Interp] SCANNED [facility] Hypochromatic red blood cell detectionOrdered By: Darline Lundy on 02-03-2023 Hypochromia Ql (Bld) 1+ [facility] Review by pathologistOrdered By: Darline Lundy on 02-03-2023 Pathologist review Enrique (Unsp spec) [Interp] Reviewed [facility] Comment on above: Previous reported re sult: Francine keating Edited by: RGOOD on 02/03/23:1313Severe Normocytic anemia.Clinical correlation necessary.Lucas Smith M.D. 02/03/23 AMENDED REPORT 02/03/23 131 PATH REV previously reported as: Francine keating Basophil percentageOrdered B y: Jasmin Steele on 02-02-2023 Bilirubin [Mass/Vol] 1.10 mg/dL 0.20-1.00 [facility] Comment on above: For patients on eltr ombopag therapy, use of Dimension [place] TBIL is not recommended. Protein [Mass/Vol] 5.6 g/dL 6.4-8.2 [facility] Laboratory - Chemistry and C hemistry - challengeOrdered By: Jasmin Steele on 02-02-2023 ALP [Catalytic activity/Vol] 51 U/L 45-117 [facility] ALT [Catalytic activity/Vol] 7 U/L 13-56 [facility] Globulin (S) [Mass/Vol] 2.8 g/dL 2.2-4.2 [facility] No Panel InformationOrdered By: Davian Grier on 02-02-2023 Vitamin D 25-Hydroxy 34.0 ng/mL [facility] Comment on above: Vitamin D 25(OH) Sta tus Range Deficiency <20 ng/mL (50nmol/L) Insufficiency 20 - 30 ng/mL (50 - 75 nmol/L) Sufficiency 30 - 100 ng/mL (75 - 250 nmol/L) Toxicity >100 ng/mL (>250 nmol/L) Serum or plasma albumin taylor urement (mass/volume)Ordered By: Jasmin Steele on 02-02-2023 Albumin [Mass/Vol] 2.8 g/dL 3.2-5.0 [facility] Serum or plasma albumin/glob ulin mass ratioOrdered By: Jasmin Steele on 02-02-2023 Albumin/Globulin [Mass ratio] 1.0 {ratio} 0.9-2.4 [facility] Thin prep Papanicolaou smear with manual screeningOrdered By: Jasmin Ivette on 02-02-2023 Thin prep Papanicolaou smear with manual screening 16 U/L 15-37 [facility] Absolute lymphocyte countOrd ered By: Niko Lorenz on 02-01-2023 Lymphocytes Auto (Unsp spec) [#/Vol] 1.35 10*3/uL 0.83-4.51 [facility] Basophil percentageOrdered B y: Niko Lorenz on 02-01-2023 Basophils/100 WBC (Bld) 1.0 % 0-1 [facility] Chloride [Moles/Vol] 107 mmol/L 98-107 [facility] Eosinophils/100 WBC (Bld) 1.7 % 0-5 [facility] Glucose [Mass/Vol] 98 mg/dL 74-106 [facility] Neutrophils (Bld) [#/Vol] 2.9 10*3/uL 2.0-7.7 [facility] Neutrophils/100 WBC (Bld) 60.2 % 47-70 [facility] Potassium [Moles/Vol] 4.2 mmol/L 3.5-5.1 [facility] Sodium [Moles/Vol] 141 mmol/L 136-145 [facility] WBC (Bld) [#/Vol] 4.8 10*3/uL 4.4-11.0 [facility] Blood erythrocytes count (nu mber/volume)Ordered By: Niko Lorenz on 02-01-2023 RBC (Bld) [#/Vol] 3.93 10*6/uL 4.2-5.4 [facility] Blood hemoglobin measurement (mass/volume)Ordered By: Niko Lorenz on 02-01-2023 Hemoglobin (Bld) [Mass/Vol] 10.8 g/dL 12.0-15.0 [facility] Blood lymphocytes/100 leukoc ytesOrdered By: Niko Lorenz on 02-01-2023 Lymphocytes/100 WBC (Bld) 28.0 % 19-41 [facility] Blood monocytes/100 leukocyt esOrdered By: Niko Lorenz on 02-01-2023 Monocytes/100 WBC (Bld) 8.9 % 0-10 [facility] Blood platelet mean volumeOr dered By: Niko Lorenz on 02-01-2023 Platelet mean volume (Bld) [Entitic vol] 8.7 fL 6.2-12.0 [facility] Determination of erythrocyte mean corpuscular volume (MCV)Ordered By: Niko Lorenz on 02-01-2023 MCV (RBC) [Entitic vol] 89.6 fL 81-99 [facility] Glucose Glucometer (BldC) [M ass/Vol]Ordered By: Darline Lundy on 02-01-2023 Glucose [Mass/Vol] 99 mg/dL 74-106 [facility] Comment on above: MANAGEMENT OF PATIEN T CARE PER NURSING PROTOCOL Hematocrit Auto (Bld) [Volum e fraction]Ordered By: Niko Lorenz on 02-01-2023 Hematocrit (Bld) [Volume fraction] 35.2 % 37-47 [facility] INR in Blood by Coagulation assayOrdered By: Niko Lorenz on 02-01-2023 INR Coag (Bld) [Relative time] 1.2 {INR} [facility] Laboratory - Chemistry and C hemistry - challengeOrdered By: Niko Lorenz on 02-01-2023 CO2 [Moles/Vol] 30.0 mmol/L 21.0-32.0 [facility] Urea nitrogen/Creatinine [Mass ratio] 18.8 mg/mg 10-20 [facility] Laboratory - Chemistry and C hemistry - challengeOrdered By: Jasmin Steele on 02-01-2023 Natriuretic peptide B (Bld) [Mass/Vol] 145.2 pg/mL 0-100 [facility] Laboratory - CoagulationOrde red By: Niko Lorenz on 02-01-2023 PT Coag (PPP) [Time] 14.8 s 11.7-14.9 [facility] Laboratory - Hematology and Cell countsOrdered By: Niko Lorenz on 02-01-2023 Erythrocyte distribution width (RBC) [Entitic vol] 41.8 fL 35.1-43.9 [facility] Erythrocyte distribution width (RBC) [Ratio] 12.6 % 11.6-14.6 [facility] Immature granulocytes/100 WBC (Bld) 0.200 % 0.0-0.9 [facility] Comment on above: IG% - Immature Granu locytes (promyelocytes, myelocytes and metamyelocytes) > 1% indicates that a LEFT SHIFT is Present. MCH (RBC) [Entitic mass] 27.5 pg 27.0-32.0 [facility] Nucleated RBC/100 WBC (Bld) [Ratio] 0 % 0-5 [facility] MCHC Auto (RBC) [Mass/Vol]Or dered By: Niko Lroenz on 02-01-2023 MCHC (RBC) [Mass/Vol] 30.7 g/dL 32-36 [facility] No Panel InformationOrdered By: Niko Lorenz on 02-01-2023 Estimated Creatinine Clearance Calc 41.05 ml/min [facility] Estimated GFR (MDRD) Amer 83 mL/min >60 [facility] Comment on above: GFR Calc Estimated GFR (MDRD) Non-Af Amer 68 mL/min >60 [facility] Comment on above: Non- GFR Calc Platelets bldOrdered By: Alina Lorenz on 02-01-2023 Platelets (Bld) [#/Vol] 255 10*3/uL 150-450 [facility] Serum or plasma calcium taylor urement (mass/volume)Ordered By: Niko Lorenz on 02-01-2023 Calcium [Mass/Vol] 8.6 mg/dL 8.5-10.1 [facility] Serum or plasma creatinine m easurement (mass/volume)Ordered By: Niko Lorenz on 02-01-2023 Creatinine [Mass/Vol] 0.85 mg/dL 0.55-1.02 [facility] Comment on above: The validity of the calculated GFR & GFRAA in patients over 70 years has not been determined. Clinical correlation is essential. Serum or plasma urea nitroge n measurement (mass/volume)Ordered By: Niko Lorenz on 02-01-2023 Urea nitrogen [Mass/Vol] 16 mg/dL 7-18 [facility] Thin prep Papanicolaou smear with manual screeningOrdered By: Niko Lorenz on 02-01-2023 Thin prep Papanicolaou smear with manual screening 4 5-15 [facility] Basophil percentageOrdered B y: Danielle Saulo on 01-05-2023 Chloride [Moles/Vol] 107 mmol/L 98-107 [facility] Glucose [Mass/Vol] 95 mg/dL 74-106 [facility] Potassium [Moles/Vol] 4.3 mmol/L 3.5-5.1 [facility] Sodium [Moles/Vol] 139 mmol/L 136-145 [facility] Laboratory - Chemistry and C hemistry - challengeOrdered By: Danielle Vernon on 01-05-2023 CO2 [Moles/Vol] 28.0 mmol/L 21.0-32.0 [facility] Urea nitrogen/Creatinine [Mass ratio] 17.8 mg/mg 10-20 [facility] No Panel InformationOrdered By: Danielle Vernon on 01-05-2023 Estimated GFR (MDRD) Amer 68 mL/min >60 [facility] Comment on above: GFR Calc Estimated GFR (MDRD) Non-Af Amer 56 mL/min >60 [facility] Comment on above: Non- GFR Calc Serum or plasma calcium taylor urement (mass/volume)Ordered By: Danielle Vernon on 01-05-2023 Calcium [Mass/Vol] 8.8 mg/dL 8.5-10.1 [facility] Serum or plasma creatinine m easurement (mass/volume)Ordered By: Danielle Vernon on 01-05-2023 Creatinine [Mass/Vol] 1.01 mg/dL 0.55-1.02 [facility] Comment on above: The validity of the calculated GFR & GFRAA in patients over 70 years has not been determined. Clinical correlation is essential. Serum or plasma urea nitroge n measurement (mass/volume)Ordered By: Danielle Vernon on 01-05-2023 Urea nitrogen [Mass/Vol] 18 mg/dL 7-18 [facility] Thin prep Papanicolaou smear with manual screeningOrdered By: Danielle Vernon on 01-05-2023 Thin prep Papanicolaou smear with manual screening 4 5-15 [facility] Absolute lymphocyte counton 2022 Lymphocytes Auto (Unsp spec) [#/Vol] 1.71 10*3/uL 0.83-4.51 [facility] Work Phone: Basophil percentageon 2021 Basophils/100 WBC (Bld) 0.8 % 0-1 [facility] Work Phone: Bilirubin [Mass/Vol] 0.60 mg/dL 0.20-1.00 [facility] Work Phone: Comment on above: For patients on eltr ombopag therapy, use of Dimension [place] TBIL is not recommended. Chloride [Moles/Vol] 106 mmol/L 98-107 [facility] Work Phone: Cholesterol [Mass/Vol] 171 mg/dL <200 [facility] Work Phone: Comment on above: <200 mg/dL Desirable 200-240 mg/dL Borderline >240 mg/dL High Risk Eosinophils/100 WBC (Bld) 1.8 % 0-5 [facility] Work Phone: Glucose [Mass/Vol] 93 mg/dL 74-106 [facility] Work Phone: Neutrophils (Bld) [#/Vol] 2.5 10*3/uL 2.0-7.7 [facility] Work Phone: Neutrophils/100 WBC (Bld) 51.0 % 47-70 [facility] Work Phone: Potassium [Moles/Vol] 4.6 mmol/L 3.5-5.1 [facility] Work Phone: Protein [Mass/Vol] 7.3 g/dL 6.4-8.2 [facility] Work Phone: Sodium [Moles/Vol] 139 mmol/L 136-145 [facility] Work Phone: Triglyceride [Mass/Vol] 76 mg/dL <199 [facility] Work Phone: Comment on above: The drugs N-Acetylcy steine and Metamizole may falsely depress this assay.Serum Triglycerides Reference Interval Normal <150 mg/dL Borderline high 150 - 199 mg/dL High 200 - 499 mg/dL Very High > or = 500 mg/dL WBC (Bld) [#/Vol] 5.0 10*3/uL 4.4-11.0 [facility] Work Phone: Blood erythrocytes count (nu mber/volume)on 2022 RBC (Bld) [#/Vol] 4.37 10*6/uL 4.2-5.4 [facility]: Blood hemoglobin measurement (mass/volume)on 2022 Hemoglobin (Bld) [Mass/Vol] 11.9 g/dL 12.0-15.0 [facility] Work Phone: Blood lymphocytes/100 leukoc yteson 2022 Lymphocytes/100 WBC (Bld) 34.5 % 19-41 [facility] Work Phone: [phone] Blood monocytes/100 leukocyt eson 2022 Monocytes/100 WBC (Bld) 11.7 % 0-10 [facility] Work Phone: Blood platelet mean volumeon 2022 Platelet mean volume (Bld) [Entitic vol] 9.1 fL 6.2-12.0 [facility] Work Phone: Determination of erythrocyte mean corpuscular volume (MCV)on 2022 MCV (RBC) [Entitic vol] 88.3 fL 81-99 [facility] Work Phone: [phone] Hematocrit Auto (Bld) [Volum e fraction]on 2022 Hematocrit (Bld) [Volume fraction] 38.6 % 37-47 [facility] Work Phone: Laboratory - Chemistry and C hemistry - challengeon 2022 ALP [Catalytic activity/Vol] 71 U/L 45-117 [facility] Work Phone: ALT [Catalytic activity/Vol] 16 U/L 13-56 [facility] Work Phone: [phone] CO2 [Moles/Vol] 28.0 mmol/L 21.0-32.0 [facility] Work Phone: Globulin (S) [Mass/Vol] 3.6 g/dL 2.2-4.2 [facility] Work Phone: Urea nitrogen/Creatinine [Mass ratio] 22.8 mg/mg 10-20 [facility] Work Phone: Bilirubin Ql (U) Small (1+) [facility] Work Phone: [phone] Glucose Ql (U) Negative [facility] Work Phone: [phone] Ketones Ql (U) Small (15+) [facility] Work Phone: [phone] pH (U) 6.5 [pH] [facility] Work Phone: [phone] Specific gravity (U) [Rel density] 1.025 [facility] Work Phone: [phone] Urobilinogen (U) [Mass/Vol] 1 mg/dL [facility] Work Phone: [phone] Laboratory - Hematology and Cell countson 2022 Erythrocyte distribution width (RBC) [Entitic vol] 41.6 fL 35.1-43.9 [facility] Work Phone: Erythrocyte distribution width (RBC) [Ratio] 12.7 % 11.6-14.6 [facility] Work Phone: Immature granulocytes/100 WBC (Bld) 0.200 % 0.0-0.9 [facility] Work Phone: Comment on above: IG% - Immature Granu locytes (promyelocytes, myelocytes and metamyelocytes) > 1% indicates that a LEFT SHIFT is Present. MCH (RBC) [Entitic mass] 27.2 pg 27.0-32.0 [facility] Work Phone: Nucleated RBC/100 WBC (Bld) [Ratio] 0 % 0-5 [facility] Work Phone: Hemoglobin Ql (U) Negative [facility] Work Phone: Laboratory - Specimen inform ationon 2022 Clarity (U) Clear [facility] Work Phone: Color (U) STRAW [facility] Work Phone: Laboratory - Urinalysison Nitrite Ql (U) Negative [facility] Work Phone: Protein Ql (U) Trace [facility] Work Phone: [phone] MCHC Auto (RBC) [Mass/Vol]on 2022 MCHC (RBC) [Mass/Vol] 30.8 g/dL 32-36 [facility] Work Phone: No Panel Informationon 03-26 Estimated GFR (MDRD) Amer 68 mL/min >60 [facility] Work Phone: Comment on above: GFR Calc Estimated GFR (MDRD) Non-Af Amer 56 mL/min >60 [facility] Work Phone: Comment on above: Non- GFR Calc Thyroid Stimulating Hormone (TSH) 2.51 uIU/mL 0.358-3.74 [facility] Work Phone: Urine Leukocytes Negatve [facility] Work Phone: Urine Non-Hemolyzed Blood [facility] Work Phone: Platelets bldon 2022 Platelets (Bld) [#/Vol] 311 10*3/uL 150-450 [facility] Work Phone: Serum or plasma albumin taylor urement (mass/volume)on 2022 Albumin [Mass/Vol] 3.7 g/dL 3.2-5.0 [facility] Work Phone: [phone] Serum or plasma albumin/glob ulin mass ratioon 2022 Albumin/Globulin [Mass ratio] 1.0 {ratio} 0.9-2.4 [facility] Work Phone: Serum or plasma calcium taylor urement (mass/volume)on 2022 Calcium [Mass/Vol] 9.0 mg/dL 8.5-10.1 [facility] Work Phone: Serum or plasma cholesterol in HDL measurement (mass/volume)on 2022 Cholesterol in HDL [Mass/Vol] 100 mg/dL >40 [facility] Work Phone: Comment on above: The drugs N-Acetylcy steine and Metamizole may falsely depress this assay. Reference Range HDL <40 mg/dL Low HDL Cholesterol HDL >or= 60 mg/dL High HDL Cholesterol Serum or plasma cholesterol in VLDL measurement (mass/volume)on 2022 Cholesterol in VLDL [Mass/Vol] 15 mg/dL 5-40 [facility] Work Phone: Serum or plasma creatinine m easurement (mass/volume)on 2022 Creatinine [Mass/Vol] 1.01 mg/dL 0.55-1.02 [facility] Work Phone: Comment on above: The validity of the calculated GFR & GFRAA in patients over 70 years has not been determined. Clinical correlation is essential. Serum or plasma low density lipoprotein (LDL) cholesterol measurement (mass/volume)on 2022 Cholesterol in LDL [Mass/Vol] 56 mg/dL 0-130 [facility] Work Phone: Serum or plasma urea nitroge n measurement (mass/volume)on 2022 Urea nitrogen [Mass/Vol] 23 mg/dL 7-18 [facility] Work Phone: Serum or plasma uric acid me asurement (mass/volume)on 2022 Urate [Mass/Vol] 3.8 mg/dL 2.6-6.0 [facility] Work Phone: Comment on above: The drugs N-Acetylcy steine and Metamizole may falsely depress this assay. Thin prep Papanicolaou smear with manual screeningon 2022 Thin prep Papanicolaou smear with manual screening 27 U/L 15-37 [facility] Work Phone: Thin prep Papanicolaou smear with manual screening 5 5-15 [facility] Work Phone: [phone] Vital Signs Date Time Vital Sign Value Performing Clinician Faci lity 01-25-2025 10:36-0400 Body temperature 98.4 [degF] [facility] 01-25-2025 10:36-0400 Diastolic blood pressure 52 mm[Hg] [facility] 01-25-2025 10:36-0400 Heart rate 83 /min [facility] 01-25-2025 10:36-0400 Respiratory rate 16 /min [facility] 01-25-2025 10:36-0400 SaO2% (BldA) [Mass fraction] 98 % [facility] 01-25-2025 10:36-0400 Systolic blood pressure 113 mm[Hg] [facility] 01-25-2025 06:00-0400 Body mass index (BMI) [Ratio] 30.7 kg/m2 [facility] 01-25-2025 06:00-0400 Body weight 75.7 kg [facility] 01-22-2025 08:05-0400 Inhaled oxygen flow rate 2 L/min [facility] 01-20-2025 11:58-0400 Body height 157 cm [facility] 12-28-2024 13:11-0400 Body height 157.48 cm [facility] 12-28-2024 13:11-0400 Body mass index (BMI) [Ratio] 29.4 kg/m2 [facility] 12-28-2024 13:11-0400 Body weight 73.02 kg [facility] 12-28-2024 13:11-0400 Diastolic blood pressure 60 mm[Hg] [facility] 12-28-2024 13:11-0400 Heart rate 83 /min Tressa Bobby [facility] 12-28-2024 13:11-0400 Systolic blood pressure 115 mm[Hg] Tressa Rosales [facility] 09-27-2024 08:22-0400 Body height 157.48 cm Didi Tai BEHAVIORAL HEALTH TECH-C Work Phone: [facility] 09-27-2024 08:22-0400 Body mass index (BMI) [Ratio] 29.4 kg/m2 Didi Lujan BEHAVIORAL HEALTH TECH-C Work Phone: [facility] 09-27-2024 08:22-0400 Body weight 73.02 kg Didi Lujan BEHAVIORAL HEALTH TECH-C Work Phone: [facility] 09-27-2024 08:22-0400 Diastolic blood pressure 72 mm[Hg] Didi Lujan BEHAVIORAL HEALTH TECH-C Work Phone: [facility] 09-27-2024 08:22-0400 Heart rate 72 /min Didi Lujan BEHAVIORAL HEALTH TECH-C Work Phone: [facility] 09-27-2024 08:22-0400 Respiratory rate 16 /min Ddii Lujan BEHAVIORAL HEALTH TECH-C Work Phone: [facility] 09-27-2024 08:22-0400 Systolic blood pressure 125 mm[Hg] Didi Lujan BEHAVIORAL HEALTH TECH-C Work Phone: [facility] 07-29-2024 14:17-0400 Diastolic blood pressure 65 mm[Hg] Armen Madison MD Work Phone: [facility] 07-29-2024 14:17-0400 Heart rate 68 /min Armen Madison MD Work Phone: [facility] 07-29-2024 14:17-0400 Systolic blood pressure 110 mm[Hg] Armen Madison MD Work Phone: [facility] 06-28-2024 07:42-0400 Body height 157.5 cm Em Sheldon Work Phone: [facility] 06-28-2024 07:42-0400 Body mass index (BMI) [Ratio] 28.42 kg/m2 Em Flynn APRN.CASE PACKER Work Phone: [facility] 06-28-2024 07:42-0400 Body weight 70.49 kg Em Flynn APRN.CN P Work Phone: [facility] Comment on above: Per pt. Did not get weighed today 06-28-2024 07:42-0400 Diastolic blood pressure 74 mm[Hg] Em Flynn APRN.CASE PACKER Work Phone: [facility] 06-28-2024 07:42-0400 Heart rate 76 /min Em Flynn APRN.CN P Work Phone: [facility] 06-28-2024 07:42-0400 SaO2% (BldA) [Mass fraction] 99 % Em Flynn APRN.CASE PACKER Work Phone: [facility] 06-28-2024 07:42-0400 Systolic blood pressure 112 mm[Hg] Em Flynn APRN.CASE PACKER Work Phone: [facility] 03-16-2024 08:37-0500 Body height 157.48 cm Alexandra Arreguin BEHAVIORAL HEALTH TECH-C Work Phone: [facility] 03-16-2024 08:37-0500 Body mass index (BMI) [Ratio] 28.7 kg/m2 Alexandra Arreguin BEHAVIORAL HEALTH TECH-C Work Phone: [facility] 03-16-2024 08:37-0500 Body weight 71.21 kg Alexandra Arreguin BEHAVIORAL HEALTH TECH-C Work Phone: [facility] 03-16-2024 08:37-0500 Diastolic blood pressure 62 mm[Hg] Alexandra Arreguin BEHAVIORAL HEALTH TECH-C Work Phone: [facility] 03-16-2024 08:37-0500 Heart rate 59 /min Alexandra Arreguin BEHAVIORAL HEALTH TECH-C Work Phone: [facility] 03-16-2024 08:37-0500 Respiratory rate 18 /min Alexandra Rodríguez BEHAVIORAL HEALTH TECH-C Work Phone: [facility] 03-16-2024 08:37-0500 Systolic blood pressure 97 mm[Hg] Alexandrajenny MccollumArreguin BEHAVIORAL HEALTH TECH-C Work Phone: [facility] 12-31-2023 09:11-0400 Body height 157.5 cm Em Flynn APRN.CN P Work Phone: [facility] 12-31-2023 09:11-0400 SaO2% (BldA) [Mass fraction] 99 % Em Flynn APRN.CASE PACKER Work Phone: [facility] 09-29-2023 08:59-0400 Body height 157.5 cm Em Flynn APRN.CN P Work Phone: [facility] 09-29-2023 08:59-0400 Body mass index (BMI) [Ratio] 29.81 kg/m2 Em Flynn APRN.CASE PACKER Work Phone: [facility] 09-29-2023 08:59-0400 Body weight 73.94 kg Em Flynn APRN.CN P Work Phone: [facility] Comment on above: Per pt. Did not get weighed 09-29-2023 08:59-0400 Diastolic blood pressure 69 mm[Hg] Em Flynn APRN.CASE PACKER Work Phone: [facility] 09-29-2023 08:59-0400 Heart rate 58 /min Em Flynn APRN.CN P Work Phone: [facility] 09-29-2023 08:59-0400 SaO2% (BldA) [Mass fraction] 98 % Em Flynn APRN.CASE PACKER Work Phone: [facility] 09-29-2023 08:59-0400 Systolic blood pressure 106 mm[Hg] Em Flynn APRN.CASE PACKER Work Phone: [facility] 08-27-2023 13:39-0400 Body height 157.5 cm Stephan Sheehan PA-C Work Phone: [facility] 08-27-2023 13:39-0400 Body mass index (BMI) [Ratio] 30.12 kg/m2 Stephan Sheehan PA-C Work Phone: [facility] 08-27-2023 13:39-0400 Body weight 74.7 kg Stephan Sheehan PA-C Work Phone: [facility] 08-27-2023 13:39-0400 Diastolic blood pressure 57 mm[Hg] Stephan Sheehan PA-C Work Phone: [facility] 08-27-2023 13:39-0400 Heart rate 60 /min Stephan Sheehan PA-C Work Phone: [facility] 08-27-2023 13:39-0400 Respiratory rate 18 /min Stephan Sheehan PA-C Work Phone: [facility] 08-27-2023 13:39-0400 SaO2% (BldA) [Mass fraction] 100 % Stephan Sheehan PA-C Work Phone: [facility] 08-27-2023 13:39-0400 Systolic blood pressure 130 mm[Hg] Stephan Sheehan PA-C Work Phone: [facility] 07-06-2023 08:13-0400 Body weight 73.94 kg Em Flynn APRN.CN P Work Phone: [facility] 07-06-2023 08:13-0400 Diastolic blood pressure 82 mm[Hg] Em Flynn APRN.CASE PACKER Work Phone: [facility] 07-06-2023 08:13-0400 Heart rate 72 /min Em Flynn APRN.CN P Work Phone: [facility] 07-06-2023 08:13-0400 SaO2% (BldA) [Mass fraction] 99 % Em Flynn APRN.CASE PACKER Work Phone: [facility] 07-06-2023 08:13-0400 Systolic blood pressure 128 mm[Hg] Em Flynn APRN.CASE PACKER Work Phone: [facility] 05-01-2023 18:05-0500 Diastolic blood pressure 69 mm[Hg] BEHAVIORAL HEALTH TECH-C Alexandra Arreguin BEHAVIORAL HEALTH TECH Work Phone: [facility] 05-01-2023 18:05-0500 Heart rate 67 /min BEHAVIORAL HEALTH TECH-C Alexandra Arreguin BEHAVIORAL HEALTH TECH Work Phone: [facility] 05-01-2023 18:05-0500 Respiratory rate 16 /min BEHAVIORAL HEALTH TECH-C Alexandra Arreguin BEHAVIORAL HEALTH TECH Work Phone: [facility] 05-01-2023 18:05-0500 SaO2% (BldA) [Mass fraction] 98 % BEHAVIORAL HEALTH TECH-C Alexandra Arreguin BEHAVIORAL HEALTH TECH Work Phone: [facility] 05-01-2023 18:05-0500 Systolic blood pressure 120 mm[Hg] BEHAVIORAL HEALTH TECH-C Alexandra Arreguin BEHAVIORAL HEALTH TECH Work Phone: [facility] 05-01-2023 13:26-0500 Body height 157.48 cm BEHAVIORAL HEALTH TECH-C Alexandra Arreguin BEHAVIORAL HEALTH TECH Work Phone: [facility] 05-01-2023 13:26-0500 Body mass index (BMI) [Ratio] 30.2 kg/m2 BEHAVIORAL HEALTH TECH-C Alexandra Arreguin BEHAVIORAL HEALTH TECH Work Phone: [facility] 05-01-2023 13:26-0500 Body temperature 98.4 [degF] BEHAVIORAL HEALTH TECH-C Alexandra Arreguin BEHAVIORAL HEALTH TECH Work Phone: [facility] 05-01-2023 13:26-0500 Body weight 74.84 kg BEHAVIORAL HEALTH TECH-C Alexandra Arreguin BEHAVIORAL HEALTH TECH Work Phone: [facility] 02-06-2023 13:59-0400 Body temperature 98.6 [degF] BEHAVIORAL HEALTH TECH-C Alexandra Arreguin BEHAVIORAL HEALTH TECH Work Phone: [facility] 02-06-2023 13:59-0400 Diastolic blood pressure 52 mm[Hg] BEHAVIORAL HEALTH TECH-C Alexandra Arreguin BEHAVIORAL HEALTH TECH Work Phone: [facility] 02-06-2023 13:59-0400 Heart rate 73 /min BEHAVIORAL HEALTH TECH-C Alexandra Arreguin BEHAVIORAL HEALTH TECH Work Phone: [facility] 02-06-2023 13:59-0400 Respiratory rate 16 /min BEHAVIORAL HEALTH TECH-C Alexandra Arreguin BEHAVIORAL HEALTH TECH Work Phone: 3([phone])109-356275 [address] 02-06-2023 13:59-0400 SaO2% (BldA) [Mass fraction] 100 % BEHAVIORAL HEALTH TECH-C Alexandra Arreguin BEHAVIORAL HEALTH TECH Work Phone: 2(279)690-243568 [place] [address] 02-06-2023 13:59-0400 Systolic blood pressure 92 mm[Hg] BEHAVIORAL HEALTH TECH-C Alexandra Arreguin BEHAVIORAL HEALTH TECH Work Phone: 1(729)044-496268 [place] [address] 02-06-2023 05:46-0400 Body mass index (BMI) [Ratio] 31.1 kg/m2 BEHAVIORAL HEALTH TECH-C Alexandra Arreguin BEHAVIORAL HEALTH TECH Work Phone: 2(335)512-574468 [place] [address] 02-06-2023 05:46-0400 Body weight 76.6 kg BEHAVIORAL HEALTH TECH-C Alexandra Arreguin BEHAVIORAL HEALTH TECH Work Phone: 2(624)655-406368 [place] [address] 02-02-2023 11:48-0400 Body height 157.48 cm BEHAVIORAL HEALTH TECH-C Alexandra Arreguin BEHAVIORAL HEALTH TECH Work Phone: 6(723)967-194175 [address] 02-01-2023 13:44-0400 Body height 157.48 cm BEHAVIORAL HEALTH TECH-C Alexandra Arreguin BEHAVIORAL HEALTH TECH Work Phone: 6(524)023-575868 [place] [address] 02-01-2023 13:44-0400 Body mass index (BMI) [Ratio] 31.1 kg/m2 BEHAVIORAL HEALTH TECH-C Alexandra Arreguin BEHAVIORAL HEALTH TECH Work Phone: 8(423)155-081568 [place] [address] 02-01-2023 13:44-0400 Body temperature 98.4 [degF] BEHAVIORAL HEALTH TECH-C Alexandra Arreguin BEHAVIORAL HEALTH TECH Work Phone: [facility] 02-01-2023 13:44-0400 Body weight 77.1 kg BEHAVIORAL HEALTH TECH-C Alexandra Arreguin BEHAVIORAL HEALTH TECH Work Phone: 5(355)433-832068 [place] [address] 02-01-2023 13:44-0400 Diastolic blood pressure 79 mm[Hg] BEHAVIORAL HEALTH TECH-C Alexandra Arreguin BEHAVIORAL HEALTH TECH Work Phone: [facility] 02-01-2023 13:44-0400 Heart rate 77 /min BEHAVIORAL HEALTH TECH-C Alexandra Arreguin BEHAVIORAL HEALTH TECH Work Phone: [facility] 02-01-2023 13:44-0400 Respiratory rate 20 /min BEHAVIORAL HEALTH TECH-C Alexandra Arreguin BEHAVIORAL HEALTH TECH Work Phone: [facility] 02-01-2023 13:44-0400 SaO2% (BldA) [Mass fraction] 99 % BEHAVIORAL HEALTH TECH-C Alexandra Arreguin BEHAVIORAL HEALTH TECH Work Phone: [facility] 02-01-2023 13:44-0400 Systolic blood pressure 165 mm[Hg] BEHAVIORAL HEALTH TECH-C Alexandra Arreguin BEHAVIORAL HEALTH TECH Work Phone: [facility] 01-20-2023 14:48-0400 Body height 157.5 cm Em Flynn APRN.CN P Work Phone: [facility] 01-20-2023 14:48-0400 Body weight 70.76 kg Em Flynn APRN.CN P Work Phone: [facility] 01-20-2023 14:48-0400 SaO2% (BldA) [Mass fraction] 100 % Em Flynn APRN.CASE PACKER Work Phone: [facility] 12-29-2022 13:39-0400 Body mass index (BMI) [Ratio] 28 kg/m2 BEHAVIORAL HEALTH TECH-C Alexandra Arreguin BEHAVIORAL HEALTH TECH Work Phone: [facility] 12-29-2022 13:39-0400 Body weight 69.39 kg BEHAVIORAL HEALTH TECH-C Alexandra Arreguin BEHAVIORAL HEALTH TECH Work Phone: [facility] 12-29-2022 13:39-0400 Diastolic blood pressure 78 mm[Hg] BEHAVIORAL HEALTH TECH-C Alexandra Arreguin BEHAVIORAL HEALTH TECH Work Phone: [facility] 12-29-2022 13:39-0400 Heart rate 60 /min BEHAVIORAL HEALTH TECH-C Alexandra Arreguni BEHAVIORAL HEALTH TECH Work Phone: [facility] 12-29-2022 13:39-0400 Respiratory rate 16 /min BEHAVIORAL HEALTH TECH-C Alexandra Arreguin BEHAVIORAL HEALTH TECH Work Phone: [facility] 12-29-2022 13:39-0400 Systolic blood pressure 152 mm[Hg] BEHAVIORAL HEALTH TECH-C Alexandra Arreguin BEHAVIORAL HEALTH TECH Work Phone: [facility] 10-09-2022 12:48-0400 Body height 157.5 cm Linden Flynn MD Work Phone: [facility] 10-09-2022 12:48-0400 Body weight 68.63 kg Linden lFynn MD Work Phone: [facility] 10-09-2022 12:48-0400 SaO2% (BldA) [Mass fraction] 99 % Linden Flynn MD Work Phone: [facility] 2022 14:59-0500 Body height 157.48 cm [facility] Work Phone: 2022 14:59-0500 Body mass index (BMI) [Ratio] 25.2 kg/m2 [facility] Work Phone: 2022 14:59-0500 Body temperature 97.7 [degF] [facility] Work Phone: 2022 14:59-0500 Body weight 62.59 kg [facility] Work Phone: 2022 14:59-0500 Diastolic blood pressure 70 mm[Hg] [facility] Work Phone: 2022 14:59-0500 Heart rate 138 /min [facility] Work Phone: 2022 14:59-0500 Respiratory rate 18 /min [facility] Work Phone: 2022 14:59-0500 SaO2% (BldA) [Mass fraction] 100 % [facility] Work Phone: 2022 14:59-0500 Systolic blood pressure 130 mm[Hg] [facility] Work Phone: 02-24-2022 16:15-0500 Body mass index (BMI) [Ratio] 25.6 kg/m2 [facility] Work Phone: 02-24-2022 16:15-0500 Body temperature 97.5 [degF] [facility] Work Phone: 02-24-2022 16:15-0500 Body weight 63.5 kg [facility] Work Phone: 02-24-2022 16:15-0500 Diastolic blood pressure 60 mm[Hg] [facility] Work Phone: 02-24-2022 16:15-0500 Heart rate 85 /min [facility] Work Phone: 02-24-2022 16:15-0500 Respiratory rate 18 /min [facility] Work Phone: 02-24-2022 16:15-0500 SaO2% (BldA) [Mass fraction] 100 % [facility] Work Phone: 02-24-2022 16:15-0500 Systolic blood pressure 122 mm[Hg] [facility] Work Phone: Encounters Encounter Date Encounter Type Care Provider Facility Start: 02-15-2025 End: 02-15-[facility] Start: 01-25-2025 Non-patient / Non-visit Dr. Estella Kelly MD -[facility] Work Phone: Start: 01-24-2025 Non-patient / Non-visit Dr. Estella Kelly MD -[facility] Work Phone: Start: 01-23-2025 Non-patient / Non-visit Dr. Estella Kelly MD -[facility] Work Phone: Start: 01-22-2025 Non-patient / Non-visit Dr. Estella Kelly MD -[facility] Work Phone: Start: 01-21-2025 Non-patient / Non-visit Dr. Estella Kelly MD -[facility] Work Phone: Start: 01-20-2025 Non-patient / Non-visit Dr. Danielle anderson MD -[facility] Work Phone: Start: 01-20-2025 Non-patient / Non-visit Dr. Zeus Martel DO -[facility] Work Phone: Start: 01-20-2025 ambulatory Davian Kelly Fac ility:[facility] Start: 01-20-2025 End: 01-25-2025 Evaluation and management of inpatient Dr. Davian Kelly MD -[facility] Work Phone: Start: 01-19-2025 End: 01-20-2025 Emergency department patient visit ALEXANDRA ARREGUIN Facility:[facility] Start: 12-28-2024 End: 12-28-[address] Alexandria Dejesus MD -[facility] Work Phone: Start: 12-28-2024 End: 12-28-2024 ambulatory Tressa HALL -[facility] Start: 11-07-2024 ambulatory Danielle Vernon Facility:[facility] Start: 11-07-2024 Non-patient / Non-visit Dr. Danielle anderson MD -[facility] Start: 11-03-2024 ambulatory Danielle Vernon Facility:[facility] Start: 11-03-2024 Non-patient / Non-visit Dr. Danielle anderson MD -[facility] Start: 11-03-2024 End: 11-03-2024 ambulatory Tressa HALL -[facility] Start: 11-03-2024 End: 11-03-[address] Danielle Vernon MD -[facility] Work Phone: Start: 11-03-2024 End: 11-03-2024 ambulatory Danielle Vernon Facility:[facility] Start: 09-27-2024 End: 09-27-[address] Danielle Vernon MD -[facility] Work Phone: Start: 09-27-2024 End: 09-27-2024 ambulatory Didi Lujan NP-C Work Phone: [facility] Work Phone: Start: 07-29-2024 End: 07-29-2024 ambulatory ALEXANDRA Anay ARREGUIN Facility:[facility] Start: 07-29-2024 End: 07-29-2024 Office outpatient new 30 minutes Armen Madison MD Work Phone: [facility] Comment on above: Numbness and tinglin g of both feet Start: 07-29-2024 End: 07-29-2024 ambulatory ALEXANDRA Anay ARREGUIN Facility:[facility] Start: 06-28-2024 End: 06-28-2024 ambulatory ALEXANDRA Anay ARREGUIN Facility: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 Danielle Vernon MD -[facility] Work Phone: Start: 03-16-2024 End: 03-16-2024 ambulatory Danielle Vernon Facility:[facility] Start: 12-31-2023 End: 12-31-2023 Patient encounter procedure Em Flynn APRN.CASE PACKER Work Phone: Neurology Comment on above: Dysphagia, unspecifi ed type (Primary Dx); Parkinson's disease without dyskinesia or fluctuating manifestations (HCC); Orthostatic hypotension Start: 11-20-2023 Documentation procedure Mammog dae Coordinator [facility] Start: 11-20-2023 Letter encounter Mammography Coordinator [facility] Start: 11-20-2023 End: 11-20-2023 Subsequent hospital visit by physician Screening Ultrasound Main Work Phone: Mammography Start: 10-21-2023 Telephone encounter Stephan juan PA-C Work Phone: [facility] [place] Comment on above: City [employer] - [employer] ther Start: 10-16-2023 Telephone encounter Yury Jasso MD Work Phone: Orthopaedics Comment on above: Patient Update; Radha ent Question; Orders Start: 10-02-2023 End: 10-02-2023 Patient encounter procedure Yury Jasso MD Work Phone: Orthopedics Comment on above: Acute pain of left s moisesulder Start: 09-29-2023 End: 09-29-2023 Patient encounter procedure Em Flynn APRN.CASE PACKER Work Phone: Neurology Comment on above: Parkinson's disease without dyskinesia or fluctuating manifestations (HCC) (Primary Dx); Orthostatic hypotension; Hallucinations; Dysphagia, unspecified type Start: 09-29-2023 ambulatory UNKNOWN PROVIDER Facili ty:[facility] Start: 09-29-2023 End: 09-29-2023 Subsequent hospital visit by physician [facility] Work Phone: Radiology Comment on above: Chronic left shoulde r pain [M25.512, G89.29] Start: 09-23-2023 ambulatory DIDI LUJAN Facilit y:[facility] Start: 09-23-2023 End: 09-23-2023 Subsequent hospital visit by physician Screen/Diagnostic Mammo [facility] Work Phone: Mammography Comment on above: Inconclusive mammogr am [R92.2] Start: 09-14-2023 Orders Only Yury Jasso MD Work Phone: Orthopedics Comment on above: Chronic left shoulde r pain (Primary Dx) Start: 09-02-2023 Telephone encounter Stephan juan PA-C Work Phone: [facility] Start: 08-27-2023 End: 08-27-2023 Patient encounter procedure Stephan Sheehan PA-C Work Phone: [facility] Comment on above: Acute pain of left s houlder (Primary Dx); Protrusion of cervical intervertebral disc; Pain in left elbow Start: 08-14-2023 Documentation procedure Mammog dae Coordinator [facility] Start: 08-14-2023 Letter encounter Mammography Coordinator [facility] Start: 08-13-2023 ambulatory DIDI LUJAN Facilit y:[facility] Start: 08-13-2023 End: 08-13-2023 Subsequent hospital visit by physician Screen/Diagnostic Mammo [facility] Work Phone: Mammography Comment on above: Encounter for screen ing mammogram for malignant neoplasm of breast [Z12.31] Asymptomatic [place] radha state [Z78.0] Start: 08-03-2023 Telephone encounter Em villarreal APRN.CASE PACKER Work Phone: Neurology Comment on above: Results Start: 07-29-2023 End: 07-29-2023 Subsequent hospital visit by physician [facility] Start: 07-06-2023 End: 07-06-2023 Patient encounter procedure Em Flynn APRN.CASE PACKER Work Phone: Neurology Comment on above: Parkinson's disease without dyskinesia or fluctuating manifestations (HCC) (Primary Dx); Orthostatic hypotension; Dysphagia, unspecified type; Left arm pain; Numbness and tingling in left arm Start: 05-01-2023 End: 05-01-2023 Emergency department patient visit BEHAVIORAL HEALTH TECH-C Alexandra Arreguin BEHAVIORAL HEALTH TECH [facility] Start: 02-06-2023 Non-patient / Non-visit BEHAVIORAL HEALTH TECH-C D ora Arreguin BEHAVIORAL HEALTH TECH Work Phone: [facility] Work Phone: Start: 02-05-2023 Non-patient / Non-visit BEHAVIORAL HEALTH TECH-C D ora Arreguin BEHAVIORAL HEALTH TECH Work Phone: [facility] Work Phone: Start: 02-04-2023 Non-patient / Non-visit BEHAVIORAL HEALTH TECH-C D ora Arreguin BEHAVIORAL HEALTH TECH Work Phone: [facility] Work Phone: Start: 02-03-2023 Non-patient / Non-visit BEHAVIORAL HEALTH TECH-C D ora Arreguin BEHAVIORAL HEALTH TECH Work Phone: [facility] Work Phone: Start: 02-02-2023 Non-patient / Non-visit BEHAVIORAL HEALTH TECH-C D ora Arreguin BEHAVIORAL HEALTH TECH Work Phone: [facility] Work Phone: Start: 02-01-2023 End: 02-06-2023 Evaluation and management of inpatient BEHAVIORAL HEALTH TECH-C Alexandra Arreguin BEHAVIORAL HEALTH TECH [facility] Work Phone: Start: 01-20-2023 End: 01-20-2023 Patient encounter procedure Em Flynn APRN.CASE PACKER Work Phone: Neurology Comment on above: Parkinson's disease without dyskinesia or fluctuating manifestations (Primary Dx); Hallucinations; Orthostatic hypotension; Insomnia, unspecified type Start: 01-05-2023 End: 01-05-2023 Patient encounter procedure BEHAVIORAL HEALTH TECH-C Alexandra Arreguin BEHAVIORAL HEALTH TECH Work Phone: [facility] Work Phone: Start: 12-29-2022 End: 12-29-2022 Patient encounter procedure BEHAVIORAL HEALTH TECH-C Alexandra Arreguin NP Work Phone: [facility] Work Phone: Start: 10-09-2022 End: 10-09-2022 Office outpatient new 45 minutes Linden Flynn MD Work Phone: Neurology Comment on above: Parkinson's disease (HCC) (Primary Dx); Argyria of skin, accidental or unintentional, sequela; Depression, unspecified depression type Start: 2022 End: 2022 ambulatory [facility] Work Phone: Start: 2022 End: 2022 Patient encounter procedure [facility], Specimen Procedures Date Procedure Procedure Detail Performing Clinician Start: 01-25-2025 [facility] Start: 01-24-2025 Estimated creatinine clearance Tressadennis Rosales OLS Start: 01-23-2025 Total iron binding c apacity measurement Tressajenny Rosales OLS Start: 01-20-2025 Plain X-ray of hip Shob Bobby OLS Start: 01-20-2025 Fluoroscopic guidance [facility] O[facility] Start: 01-20-2025 [facility] Start: 01-20-2025 Prosthetic uncemente d hemiarthroplasty of hip [facility] Bobby OLS Start: 01-20-2025 Urnls dip stick/tabl et reagent auto microscopy Tressajenny Rosales OLS Start: 01-20-2025 Serum inorganic phos phate measurement Tressajenny Rosales OLS Start: 11-03-2024 Cardiovascular stres s test using pharmacologic stress agent Tressa Rosales OLS Start: 06-03-2024 Radionuclide study of abdomen Alexandra Arreguin BEHAVIORAL HEALTH TECH-C Work Phone: Start: 10-02-2023 Arthrocentesis aspir &/inj major jt/bursa w/o us Yury Jasso MD Work Phone: Start: 09-29-2023 Radex shoulder compl ete minimum 2 views Claudia Manuel PA-C Work Phone: Start: 09-23-2023 Us breast uni real t jason with image limited [facility] Provider Start: 07-29-2023 Mri spinal canal cer vical w/o contrast matrl Em Flynn SYSTEM PROGRAMMERJorgitoCASE PACKER Work Phone: Start: 05-01-2023 CT cervical spine wi thout contrast BEHAVIORAL HEALTH TECH-C Alexandra Arreguin BEHAVIORAL HEALTH TECH Work Phone: Start: 05-01-2023 CT of head without contrast BEHAVIORAL HEALTH TECH-C Alexandra Arreguin BEHAVIORAL HEALTH TECH Work Phone: Start: 02-06-2023 Viral antigen assay BEHAVIORAL HEALTH TECH- C Alexandra Arreguin BEHAVIORAL HEALTH TECH Work Phone: Start: 02-02-2023 Plain X-ray of hip BEHAVIORAL HEALTH TECH-C Alexandra Arreguin BEHAVIORAL HEALTH TECH Work Phone: Start: 02-02-2023 Open reduction of fr acture of femur with internal fixation BEHAVIORAL HEALTH TECH-C Alexandra Arreguin BEHAVIORAL HEALTH TECH Work Phone: Start: 02-02-2023 Fluoroscopic guidance N P-C Alexandra Arreguin BEHAVIORAL HEALTH TECH Work Phone: Start: 02-01-2023 Plain x-ray of elbow BEHAVIORAL HEALTH TECH -C Alexandra Arreguin BEHAVIORAL HEALTH TECH Work Phone: Start: 02-01-2023 CT of head without contrast BEHAVIORAL HEALTH TECH-C Alexandra Arreguin BEHAVIORAL HEALTH TECH Work Phone: Start: 02-01-2023 Plain chest X-ray BEHAVIORAL HEALTH TECH-C Alexandra Arreguin BEHAVIORAL HEALTH TECH Work Phone: Start: 02-01-2023 Plain X-ray of femur BEHAVIORAL HEALTH TECH -C Alexandra Arreguin BEHAVIORAL HEALTH TECH Work Phone: Plan of Treatment Date Care Activity Detail Author Start: 01-25-2025 Patient discharge [facility] Start: 01-20-2025 Provision of overbed trapeze [facility] Start: 01-20-2025 End: 01-20-2025 [facility] Start: 01-20-2025 Ambulation therapy management [facility] Start: 01-20-2025 Application of device [facility] Start: 01-20-2025 Assessment of risk of venous thromboembolism [facility] Start: 01-20-2025 Catheterization of vein [facility] Start: 01-20-2025 Exercises [facility] Start: 01-20-2025 Following clinical pathway protocol [facility] Start: 01-20-2025 Introduction of urinary catheter [facility] Start: 01-20-2025 Measuring intake and output [facility] Start: 01-20-2025 Neurovascular assessment [facility] Start: 01-20-2025 Patient education [facility] Start: 01-20-2025 Procedure discontinued [facility] Start: 01-20-2025 Provision of activity privileges [facility] Start: 01-20-2025 Recommendation to continue with treatment [facility] Start: 01-20-2025 Referral for physical therapy [facility] Start: 01-20-2025 Referral to occupational therapist [facility] Start: 01-20-2025 Vital signs measurements [facility] Start: 01-20-2025 Wound care [facility] Start: 01-20-2025 Care planning and problem solving actions [facility] Start: 01-20-2025 [facility] Start: 01-20-2025 Application of intermittent pneumatic compression device [facility] Start: 01-20-2025 Following clinical pathway protocol [facility] Start: 01-20-2025 Oxygen therapy [facility] Start: 01-20-2025 Referral to service [facility] Start: 01-20-2025 Admission procedure [facility] Start: 01-20-2025 Assessment of risk of venous thromboembolism [facility] Start: 01-20-2025 Insertion of catheter into peripheral vein [facility] Start: 01-20-2025 Providing care according to standard [facility] Start: 01-20-2025 Consultation [facility] Start: 01-20-2025 Documentation procedure [facility] Start: 01-20-2025 Measuring intake and output [facility] Start: 01-20-2025 End: 01-20-2025 [facility] Start: 12-29-2024 End: 12-29-2024 Patient encounter procedure 12/29/2024 10:00 AM EDT Office Visit Neurology [address] [address] Em Flynn APRN.CASE PACKER [address] [address] 6 month follow up Neurology Comment on above: 6 month follow up Start: 07-29-2024 End: 07-29-2024 Patient encounter procedure 07/29/2024 3:00 PM EDT Office Visit Neuromuscular [facility] [address] [place] [address] Armen Madison MD [address] [place] [address] 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 Neuromuscular [facility] Comment on above: 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 Start: 07-29-2024 End: 10-28-2024 Cobalamin (Vitamin B12) [Mass/volume] in Serum or Plasma [facility] Comment on above: Expected: 07/29/2024, Expires: Start: 07-29-2024 End: 10-28-2024 Folate [Mass/volume] in Serum or Plasma [facility] Comment on above: Expected: 07/29/2024, Expires: Start: 07-29-2024 End: 10-28-2024 Hemoglobin A1c in Blood [facility] Work Phone: Comment on above: Expected: 07/29/2024, Expires: Start: 07-29-2024 End: 10-28-2024 IMMUNOFIXATION SCREEN, SERUM [facility] Comment on above: Expected: 07/29/2024, Expires: Start: 07-29-2024 End: 10-28-2024 KAPPA/ERASMO,KATE,SER [facility] Comment on above: Expected: 07/29/2024, Expires: Start: 07-29-2024 End: 10-28-2024 Methylmalonate [Moles/volume] in Serum or Plasma [facility] Comment on above: Expected: 07/29/2024, Expires: Start: 07-29-2024 End: 10-28-2024 VITAMIN B1 (THIAMINE), WHOLE BLOOD [facility] Comment on above: Expected: 07/29/2024, Expires: Start: 06-02-2024 Urine microalbumin profile DTaP,Tdap,Td Vaccine (2 - Td or Tdap) [facility] Start: 04-13-2024 Advance Directive Discussion Advance Directive Discussion [facility] Start: 04-07-2024 End: 04-07-2024 Patient encounter procedure 04/07/2024 10:00 AM EST Office Visit Neurology [address] [address] Em Flynn, SYSTEM PROGRAMMER.CASE PACKER [address] [place] [address] 3 month follow up Neurology Comment on above: 3 month follow up Start: 12-31-2023 End: 12-31-2023 Patient encounter procedure 12/31/2023 9:00 AM EDT Office Visit Neurology [address] [address] Em Flynn, SYSTEM PROGRAMMER.CASE PACKER [address] [place] [address] 3 month follow up Neurology Comment on above: 3 month follow up Start: 12-13-2023 Covid-19 Vaccine ( season) Covid-19 Vaccine ( season) [facility] Start: 12-13-2023 Covid-19 Vaccine ( season) Covid-19 Vaccine ( season) [facility] Start: 12-13-2023 Influenza vaccination [facility] Start: 11-20-2023 End: 11-20-2023 Patient encounter procedure 11/20/2023 7:45 AM EDT Appointment Mammography [address] [address] INCONCLUSIVE MAMMOGRAM - ORDER SCANNED IN [facility] 09/24/23 Mammography Comment on above: INCONCLUSIVE MAMMOGRAM - ORDER SCANNED I N [facility] 09/24/23 Start: 10-02-2023 End: 10-02-2023 Patient encounter procedure Orthopedics Comment on above: Acute pain of left shoulder [M25.512] L shoulder Start: 09-29-2023 End: 09-29-2023 Patient encounter procedure 09/29/2023 9:00 AM EDT Office Visit Neurology [address] [id number] Em Flynn, SYSTEM PROGRAMMER.CASE PACKER [address] [address] Return in about 3 months (around 10/06/2023). Neurology Comment on above: Return in about 3 months (around 10/06/19). Start: 09-23-2023 End: 09-23-2023 Patient encounter procedure 09/23/2023 9:20 AM EDT Appointment Mammography [address] [place] [address] Franki breast us, left breast diagnostic mammogram Mammography Comment on above: Franki breast us, left breast diagnostic m ammogram Start: 09-23-2023 Subsequent hospital visit by physician 09/23/2023 9:20 AM EDT Hospital Encounter Mammography [address] [place] [address] Inconclusive mammogram [R92.2] Mammography Comment on above: Inconclusive mammogram [R92.2] Start: 08-27-2023 End: 08-27-2023 Patient encounter procedure 08/27/2023 1:40 PM EDT Office Visit [facility] [address] [address] Stephan Sheehan PA-C [address] [place] [id number] 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] [facility] Comment on above: Protrusion of cervical intervertebral di sc [M50.20] Start: 08-13-2023 End: 08-13-2023 Patient encounter procedure Mammography Comment on above: MAMMOGRAM SCREENING BILATERAL DEXA BONE DENSITY Start: 05-01-2023 [facility] Start: 04-13-2023 Advance Directive Discussion Advance Directive Discussion [facility] Start: 04-13-2023 Behavioral Health Screening Behavioral Health Screening [facility] Start: 04-13-2023 Depression Assessment Depression Assessment [facility] Start: 02-09-2023 Blood chemistry [facility] Start: 02-08-2023 Blood chemistry [facility] Start: 02-07-2023 Blood chemistry [facility] Start: 02-06-2023 Patient discharge [facility] Start: 02-03-2023 Administration of blood product [facility] Start: 02-02-2023 Ambulation therapy management [facility] Start: 02-02-2023 Application of device [facility] Start: 02-02-2023 Exercises [facility] Start: 02-02-2023 Following clinical pathway protocol [facility] Start: 02-02-2023 Introduction of urinary catheter [facility] Start: 02-02-2023 Neurovascular assessment [facility] Start: 02-02-2023 Patient education [facility] Start: 02-02-2023 Provision of activity privileges [facility] Start: 02-02-2023 Recommendation to continue with treatment [facility] Start: 02-02-2023 Referral to occupational therapist [facility] Start: 02-02-2023 Referral to service [facility] Start: 02-02-2023 Vital signs measurements [facility] Start: 02-02-2023 Wound care [facility] Start: 02-02-2023 [facility] Start: 02-02-2023 End: 02-02-2023 Measuring intake and output [facility] Start: 02-01-2023 Application of intermittent pneumatic compression device [facility] Start: 02-01-2023 Following clinical pathway protocol [facility] Start: 02-01-2023 Application of ice collar, cap or bag [facility] Start: 02-01-2023 Assessment of risk of venous thromboembolism [facility] Start: 02-01-2023 Bedrest [facility] Start: 02-01-2023 Consultation [facility] Start: 02-01-2023 Fall prevention [facility] Start: 02-01-2023 Inhalation therapy procedure [facility] Start: 02-01-2023 Insertion of catheter into peripheral vein [facility] Start: 02-01-2023 Introduction of urinary catheter [facility] Start: 02-01-2023 Neurovascular assessment [facility] Start: 02-01-2023 Providing care according to standard [facility] Start: 02-01-2023 Referral to occupational therapist [facility] Start: 02-01-2023 Referral to service [facility] Start: 02-01-2023 Skin care [facility] Start: 02-01-2023 [facility] Start: 02-01-2023 End: 02-01-2023 Measuring intake and output [facility] Start: 02-01-2023 Admission procedure [facility] Start: 02-01-2023 Hospital admission, emergency, from emergency room, medical nature [facility] Start: 02-01-2023 Brain natriuretic peptide measurement [facility] Start: 12-12-2022 Covid-19 Vaccine ( season) Covid-19 Vaccine ( season) [facility] Start: 12-12-2022 Influenza vaccination [facility] Start: 04-13-2022 ADVANCE DIRECTIVE DISCUSSION ADVANCE DIRECTIVE DISCUSSION [facility] Start: 04-13-2022 DEPRESSION ASSESSMENT DEPRESSION ASSESSMENT [facility] Start: 01-07-2019 Shingrix Vaccine (2 of 2) Shingrix Vaccine (2 of 2) [facility] Start: 2016 RSV Vaccine (1 - 1-dose 75+ series) RSV Vaccine (1 - 1-dose 75+ series) [facility] Start: 2006 BONE DENSITY BONE DENSITY [facility] Start: 2006 Bone Density Screening Bone Density Screening [facility] Start: 2006 Pneumococcal Vaccine: 65+ (1 - PCV) Pneumococcal Vaccine: 65+ (1 - PCV) [facility] Start: 2006 Pneumococcal Vaccine: 65+ (1 of 1 - PCV) Pneumococcal Vaccine: 65+ (1 of 1 - PCV) [facility] Start: 2006 PNEUMOCOCCAL: 65+ (1 - PCV) PNEUMOCOCCAL: 65+ (1 - PCV) [facility] Start: 2006 Screening for osteoporosis Bone Density Screening [facility] Start: 2001 RSV Vaccine (1 - 1-dose 60+ series) RSV Vaccine (1 - 1-dose 60+ series) [facility] Start: 1991 SHINGRIX VACCINE (1 of 2) SHINGRIX VACCINE (1 of 2) [facility] Start: 1986 DIABETES SCREEN DIABETES SCREEN [facility] Start: 1986 Diabetes Screening Diabetes Screening [facility] Start: 1960 Urine microalbumin profile [facility] Start: 1959 Anxiety Screening Anxiety Screening [facility] Start: 1959 Depression Screening Depression Screening [facility] Start: 1959 Hepatitis B surface antibody level LDL CHOLESTEROL [facility] Start: 1941 COVID-19 VACCINE (#1) COVID-19 VACCINE (#1) [facility] Hematocrit [Volume Fraction] of Blood [facility] Hematocrit [Volume Fraction] of Blood [facility] Hemoglobin [Mass/vol ume] in Blood [facility] Hemoglobin [Mass/vol ume] in Blood [facility] Leukocytes [#/volume ] in Blood [facility] Leukocytes [#/volume ] in Blood [facility] Mean corpuscular hemoglobin concentration determination [facility] Mean corpuscular hemoglobin concentration determination [facility] Mean corpuscular hemoglobin determination [facility] Mean corpuscular hemoglobin determination [facility] End: 08-04-2024 MR Cervical spine WO contrast MRI CERVICAL SPINE WO IVCON Radiology Routine 1 Occurrences starting 07/06/2023 until 08/04/2024 [facility] Work Phone: Comment on above: 1 Occurrences starting 07/06/2023 until 08/04/2024 Neutrophil count [facility] Neutrophil count [facility] Neutrophil percent differential count [facility] Neutrophil percent differential count [facility] Patient Education [facility] Work Phone: Patient referral [facility] Work Phone: Platelets [#/volume] in Blood [facility] Platelets [#/volume] in Blood [facility] Red blood cell count [facility] Red blood cell count [facility] Red cell distributio n width determination [facility] Red cell distributio n width determination [facility] XR Shoulder - left 3 Views XR SHOULDER GENERAL 3V OR MORE AP/TRUE AP/OTHER LEFT Radiology Routine Chronic left shoulder pain 1 Occurrences starting 09/15/2023 [facility] Work Phone: Comment on above: 1 Occurrences starting 09/15/2023 [facility] Payers Date Payer Category Payer Self-pay 2024 Medicaid [id number] 2023 Medicaid [id number] 2023 Medicare (Managed Care) [facility] MEDICARE [id number] 2023 Medicare [id number] 2022 Medicare [id number] Unknown [id number] Unknown [id number] 2.16.840.1.739404.3.579.2. 462 Unknown [id number] 2.16.840.1.955862.3.579.2. 462 Unknown [id number] 2.16.840.1.374679.3.579.2. 462 Unknown [id number] 2.16.840.1.187103.3.579.2. 462 Unknown [id number] 2.16.840.1.277742.3.579.2. 462 Unknown [id number] 2.16.840.1.420651.3.579.2. 462 Unknown [id number] 2.16.840.1.476957.3.579.2. 462 Unknown [id number] 2.16.840.1.954914.3.579.2. 462 Unknown [id number] 2.16.840.1.881999.3.579.2. 462 Unknown [id number] 2.16.840.1.575229.3.579.2. 462 Unknown [id number] 2.16.840.1.173166.3.579.2. 462 Unknown [id number] 2.16.840.1.946226.3.579.2. 462 Unknown [id number] 2.16.840.1.809548.3.579.2. 462 Unknown [id number] 2.16.840.1.020871.3.579.2. 462 Unknown [id number] 2.16.840.1.575388.3.579.2. 462 Social History Date Type Detail Facility Start: 2022 End: 05-01-2023 Tobacco smoking status [facility] Unknown if ever smoked [facility] Start: 1940 Sex Assigned At Female [facility] Start: 10-09-2022 End: 01-20-2025 Tobacco smoking status [facility] Ex-smoker [facility] History of tobacco use Current smoker [facility] History of tobacco use Cigarette Smoker [facility] Start: 10-09-2022 End: 08-27-2023 Tobacco use and exposure Smokeless tobacco non-user [facility] Start: 10-09-2022 End: 07-29-2024 Alcohol intake Lifetime non-drinker (finding) [facility] Start: 1940 Sex Assigned At Not on file [facility] Start: 01-20-2023 End: 07-29-2024 History of Social function [facility] Start: 01-20-2023 End: 07-29-2024 Tobacco use panel [facility] National Score (1-100), lower number is lower risk 51 [facility] Start: 06-16-2024 [facility]: Highlighted row [facility] NEGATED: Highlighted rowStart: NINF History of tobacco use Passive smoker [facility] Medical Equipment Procedure Code Equipment Code Equipment Origin al Text Equipment Identifier Dates Primary uncemented hemiarthroplasty of hip ([id number]) Uncoated hip femur prosthesis, one-piece ()[id number] FDA Start: 01-20-2025 Primary uncemented hemiarthroplasty of hip Uncoated hip femur prosthesis, one-piece ()[id number] FDA Start: 01-20-2025 Primary uncemented hemiarthroplasty of hip ([id number]) Coated hip femur prosthesis, modular ()[id number] FDA Start: 01-20-2025 ORIF, hip, using Gamma nail ([id number]) Orthopaedic bone screw, non-bioabsorbable, sterile ()[id number] FDA Start: 02-02-2023 ORIF, hip, using Gamma nail ([id number]) Femur nail, sterile ()[id number] FDA Start: 02-02-2023 ORIF, hip, using Gamma nail ([id number]) Orthopaedic bone screw, non-bioabsorbable, sterile ()[id number] FDA Start: 02-02-2023 Goals Date Patient Goal Desired Activity /State Functional Status Date Assessment Result Facility 01-25-2025 Functional status Ambulates [facility] Work Phone: 02-06-2023 Functional status Ambulates [facility] Work Phone: Mental Status Date Assessment Result Facility 01-25-2025 Cognitive function Voice/Name [facility] Work Phone: 02-06-2023 Cognitive function Voice/Name [facility] Work Phone: Clinical Notes 10-09-2022 to 01-25-2025 Note Date & Type Note Facility 01-25-2025 Note [facility] Medical Records Department [address] [place] [address] Discharge Summary 01/25/25 1449 MR#: [id number] Acct: [id number] Name: MONISHA COHN Rep #: [id number] : 1940 84 From: Davian Kelly MD PCP: Tressa Rosales Status:DIS IN [facility] Prov[facility] Date of Admission: 01/20/25 Primary Care [...] pulmonary hypertension, CAD; with RCA stent at [facility] in [place] (2009) and subsequent inferior wall ST elevation DC s/p RCA stent with cardiogenic shock and [...] recently diagnosed COVID-19 who was transferred from [facility] after she was diagnosed with an [...] LOC with her fall. Dr. North of [facility] spoke to Dr. Tijerina of the orthopedic service here (more content not included)... [facility] 01-25-2025 Consult note [facility] 01-25-2025 Consult note [facility] 01-25-2025 Consult note Note Date/Time January 25, 2025 1:00pm [facility] Medical Records Department [address] [place] [address] Counseling Note - Pharmacy 01/25/25 0938 MR#: [id number] Acct: [id number] Name: MONISHA COHN Rep #:[id number] : 1940 84 From: Ephraim severino PCP: Tressa Rosales Status:ADM IN Y Location: [facility] KX064-0 Pharmacy [place] Med Reconciliation Pharmacy Service has performed discharge [...] Signature (if applicable): Date CC: ~ Signed [facility] Work Phone: 1(704) 132-903310-15-2025 Discharge summary Author Davian Kelly [facility] Note Date/Time January 25, 2025 9 :25am [facility] Medical Records Department [address] [place] [address] Transfer to [facility] MR#: [id number] Acct: [id number] Name: MONISHA COHN Rep #:[id number] : 1940 84 From: Davian interiano [...] SERVICES PRIOR TO HIS/HER TRANSFER TO THE [facility]. 01/25/25924<Electronically signed by Davian Kelly MD> Diet [...] post repair 01/20/2025 -After mechanical fall at [facility] -Ortho consulted -Patient n.p.o. -Pain control/supportive care [...] Provider: Tressa Rosales Consulting Providers: Braulio Tijerina; Stepahn Martel; Darline Lundy Discharge Orders/Prescriptions Prescriptions: New [...] Dr. Braulio Tijerina MD; Tressa Rosales ~ [facility] Work Phone: 1(918) 535-158610-15-2025 Discharge summary [facility] Medical Records Department [address] [place] [address] Transfer to [facility] MR#: [id number] Acct: [id number] Name: MONISHA COHN Rep #:[id number] : 1940 84 From: Davian interiano [...] post repair 01/20/2025 -After mechanical fall at [facility] -Ortho consulted -Patient n.p.o. -Pain control/supportive care [...] Dr. Braulio Tijerina MD; Tressa Rosales ~ [facility]10-14-2025 Progress note Author Davian Kelly [facility] Note Date/Time January 24, 2025 1 0:33am [facility] Medical Records Department [address] [place] [address] Progress Note - Hospitalist 01/24/25 1031 MR#: [id number] Acct: [id number] Name: MONISHA COHN Rep #:[id number] : 1940 84 From: Davian interiano MD PCP: Tressa Rosales Status:ADM IN Location: [facility] AN517-0 Subjective Subjective Doing well, no issues overnight. [...] post repair 01/20/2025 -After mechanical fall at [facility] -Ortho consulted -Patient n.p.o. -Pain control/supportive care [...] DVT: Xarelto Charges/Coding Visit Charges Inpatient E&M: 69575 Subs Hosp L2 01/24/25 1033 <Electronically signed by Davian Kelly MD> Cosigner Signature (if applicable): CC: ~ Signed [facility] Work Phone: 1(948) 474-734910-14-2025 Progress note [facility] Medical Records Department [address] [place] [address] Progress Note - Hospitalist 01/24/25 1031 MR#: [id number] Acct: [id number] Name: MONISHA COHN Rep #:[id number] : 1940 84 From: Davian interiano MD PCP: Tressa Rosales Status:ADM IN Location: [place] [address]-1 Subjective Subjective Doing well, no issues overnight. [...] post repair 01/20/2025 -After mechanical fall at [facility] -Ortho consulted -Patient n.p.o. -Pain control/supportive care [...] DVT: Xarelto Charges/Coding Visit Charges Inpatient E&M: 70580 Subs Hosp L2 01/24/25 1033 Cosigner Signature (if applicable): CC: ~ Signed [facility]10-13-2025 Progress note Author Davian Kelly [facility] Note Date/Time January 23, 2025 1 1:01am [facility] Medical Records Department [address] [place] [address] Progress Note - Hospitalist 01/23/25 1053 MR#: [id number] Acct: [id number] Name: MONISHA COHN Rep #:[id number] : 1940 84 From: Davian interiano MD PCP: Tressa Rosales Status:ADM IN Location: [facility] KQ417-4 Subjective Subjective Pain is controlled, no issues [...] DVT: Xarelto Charges/Coding Visit Charges Inpatient E&M: 89519 Subs Hosp L2 01/23/25 1101 <Electronically signed by Davian Kelly MD> Cosigner Signature (if applicable): CC: ~ Signed [facility] Work Phone: 1(132) 513-660210-13-2025 Progress note [facility] Medical Records Department [address] [place] [address] Progress Note - Hospitalist 01/23/25 1053 MR#: [id number] Acct: [id number] Name: MONISHA COHN Rep #:[id number] : 1940 84 From: Davian interiano MD PCP: Tressa Rosales Status:ADM IN Location: [place] [address] Subjective Subjective Pain is controlled, no issues [...] post repair 01/20/2025 -After mechanical fall at [facility] -Ortho consulted -Patient n.p.o. -Pain control/supportive care [...] DVT: Xarelto Charges/Coding Visit Charges Inpatient E&M: 60410 Subs Hosp L2 01/23/25 1101 Cosigner Signature (if applicable): CC: ~ Signed [facility]10-12-2025 Progress note Author Davian Kelly [facility] Note Date/Time January 22, 2025 9 :19am [facility] Medical Records Department [address] [place] [address] Progress Note - Hospitalist 01/22/25917 MR#: [id number] Acct: [id number] Name: MONISHA COHN Rep #:[id number] : 1940 84 From: Davian interiano MD PCP: Tressa Rosales Status:ADM IN Location: [place] [address]-1 Subjective Subjective Doing well, pain is controlled. [...] post repair 01/20/2025 -After mechanical fall at [facility] -Ortho consulted -Patient n.p.o. -Pain control/supportive care [...] DVT: Xarelto Charges/Coding Visit Charges Inpatient E&M: 81595 Subs Hosp L2 01/22/25918 <Electronically signed by Davian Kelly MD> Cosigner Signature (if applicable): CC: ~ Signed [facility] Work Phone: 1(795) 426-387210-12-2025 Progress note [facility] Medical Records Department [address] [place] [address] Progress Note - Hospitalist 01/22/25917 MR#: [id number] Acct: [id number] Name: MONISHA COHN Rep #:[id number] : 1940 84 From: Davian interiano MD PCP: rTessa Rosales Status:ADM IN Location: [place] [address] Subjective Subjective Doing well, pain is controlled. [...] DVT: Xarelto Charges/Coding Visit Charges Inpatient E&M: 26693 Subs Hosp L2 01/22/25 0919 Cosigner Signature (if applicable): CC: ~ Signed [facility]10-11-2025 Progress note Author Braulio Tijerina [facility] Note Date/Time January 21, 2025 1 :41pm [facility] Medical Records Department [address] [place] [address] Progress Note - Orthopedic 01/21/25 1335 MR#: [id number] Acct: [id number] Name: MONISHA COHN Rep #:[id number] 7 : 1940 84 From: Braulio Fontana PCP: Tressa Rosales Status:ADM IN Location: MS3 SH316-4 Subjective Subjective Patient states she is doing [...] hip surgical and chronic changes. [facility] 01/20/25 16:20 IMPRESSION: Uncomplicated appearing [...] Cosigner Signature (if applicable): CC: ~ Signed [facility] Work Phone: 1(169) 182-146310-11-2025 Progress note [facility] Medical Records Department [address] [place] [address] Progress Note - Orthopedic 01/21/25 1335 MR#: [id number] Acct: [id number] Name: MONISHA COHN Rep #:[id number] 7 : 1940 84 From: Braulio Fontana PCP: Tressa Rosales Status:ADM IN Location: MS3 WQ668-2 Subjective Subjective Patient states she is doing [...] hip surgical and chronic changes. [facility] 01/20/25 16:20 IMPRESSION: Uncomplicated appearing [...] Cosigner Signature (if applicable): CC: ~ Signed [facility]10-11-2025 Progress note Author Davian Kelly [facility] Note Date/Time January 21, 2025 9 :43am [facility] Medical Records Department [address] [place] [address] Progress Note - Hospitalist 01/21/25 0939 MR#: [id number] Acct: [id number] Name: SUKIMONISHA ARIEL Rep #:[id number] 7 : 1940 84 From: Davian interiano MD PCP: Tressa Rosales Status:ADM IN Location: MS3 BZ581-4 Subjective Subjective Doing well, no issues overnight. [...] hip surgical and chronic changes. Reading [facility] 01/20/25 16:20 IMPRESSION: Uncomplicated appearing right hip hemiarthroplasty. Left hip chronic and surgical changes. Reading [facility] Physical Exam Narrative General: Alert, Oriented x3, [...] post repair 01/20/2025 -After mechanical fall at [facility] -Ortho consulted -Patient n.p.o. -Pain control/supportive care [...] DVT: Xarelto Charges/Coding Visit Charges Inpatient E&M: 18005 Subs Hosp L2 01/21/25942 <Electronically signed by Davian Kelly MD> Cosigner Signature (if applicable): CC: ~ Signed [facility] Work Phone: 1(404) 624-278410-11-2025 Progress note [facility] Medical Records Department [address] [place] [address] Progress Note - Hospitalist 01/21/25938 MR#: [id number] Acct: [id number] Name: MONISHA COHN Rep #:[id number] 7 : 1940 84 From: Davian interiano MD PCP: Tressa Rosales Status:ADM IN [facility] JS493-0 Subjective Subjective Doing well, no issues overnight. [...] RDW Std Deviation 39.8, RDW Coeff of Alenea 13.1, Plt Count 209, MPV 8.8, Sodium [...] hip surgical and chronic changes. Reading Location: [facility] Hip X-Ray 01/20/25 16:20 IMPRESSION: Uncomplicated appearing right hip hemiarthroplasty. Left hip chronic and surgical changes. Reading Location: [facility] Physical Exam Narrative General: Alert, [...] DVT: Xarelto Charges/Coding Visit Charges Inpatient E&M: 20303 Subs Hosp L2 01/21/25 0943 Cosigner Signature (if applicable): CC: ~ Signed [facility]10-10-2025 Consult note Author Brennen Rojas [facility] Note Date/Time January 20, 2025 5 :17pm [facility] Medical Records Department [address] [place] [address] Anesthesia Postop Eval I 01/20/25 1715 MR#: [id number] Acct: [id number] Name: MONISHA COHN Rep #:[id number] 0 : 1940 84 From: Brennen Rojas CRNA PCP: Tressa Rosales Status:ADM IN Y Race: C Location: [place] [address] Anesthesia: Postop Eval I Current Vital Signs [...] Yes 01/20/251716 <Electronically signed by Brennen paz CHOIR LEADER> Date _ Brennen Rojas CHOIR LEADER Cosigner Signature: Date CC: ~ Signed [facility] Work Phone: 1(244) 758-506210-10-2025 Consult note Author Jareth Shepard [facility] Note Date/Time January 25, 2025 1 :00pm [facility] Medical Records Department [address] [place] [address] Anesthesia Postop Eval II 01/20/251705 MR#: [id number] Acct: [id number] Name: MONISHA COHN Rep #:[id number] 7 : 1940 84 From: Jareth Shepard MD PCP: Tressa Rosales Status:ADM IN Y Race: C [place] [facility] MS309 -1 Anesthesia Postop Eval I Sum [...] Jareth Elliott Signature: Date CC: ~ Signed [facility] Work Phone: [phone]) 919-704710-10-2025 Procedure note [facility] Medical Records Department [address] [facility] [place] [address] Operative Report 01/20/25 1545 MR#: [id number] Acct: [id number] Name: MONISHA COHN Rep #:[id number] 8 : 1940 84 From: Braulio Fontana PCP: Tressa Rosales Status:ADM IN [id number] Operative Report (Standard) Operative Information Date of Procedure: 01/20/25 Pre-Operative Diagnosis: Right hip subcapital femoral neck fracture Post-Operative Diagnosis: Right hip subcapital femoral neck fracture Surgery/Procedure Performed: Right hip endoprosthesis sap data architect: Yes Service Architect: Edyta Bhatti Tasks completed by family law legal assistant: Opening, Closing, Implanting device and Retracting Additional special education assistant?: No Type of Anesthesia: General RN [...] awakened by anesthesia and transferred to the [facility]. Patient was then transferredto the PACU [...] Dr. Braulio Tijerina MD; Tressa Rosales~ Signed [facility]10-10-2025 Consult note [facility] Medical Records Department [address] [place] [address] Anesthesia Postop Eval I 01/20/25 1715 MR#: [id number] Acct: [id number] Name: MONISHA COHN Rep #:[id number] 0 : 1940 84 From: Brennen Rojas CRNA PCP: Tressa Rosales Status:ADM IN Y Race: C Location: [facility] MS309 -1 Anesthesia: Postop Eval I Current [...] Eval 1 completed: Yes 01/20/25 1717 an CHOIR LEADER> Date _ Brennen Rojas CHOIR LEADER Cosigner Signature: Date CC: ~ Signed [facility]10-10-2025 Radiology Diagnostic study note [facility] Imaging Services [address] [place] [address] [id number] Hip Min 2 Views (Portable) MR#: [id number] Acct: [id number] Name: MONISHA COHN Rep #: [id number] 3 : 1940 F 84 From: Christine Gillette MD PCP: Tressa Rosales Status: ADM IN Study:Hip Min 2 Views (Portable) Date of Exam : 01/20/25 Exam# [id number] Ordering Dr: Rachele Tijerina MD PROCEDURE: HIP [...] Dr. Braulio Tijerina MD; Tressa Rosales ~ Engineering Production Liaison: Signed [facility]10-10-2025 Consult note Author Braulio Tijerina [facility] Note Date/Time January 20, 2025 2 :24pm [facility] Medical Records Department [address] [place] [address] Consultation - Orthopedics 01/20/25 1415 MR#: [id number] Acct: [id number] Name: MONISHA COHN Rep #:[id number] 9 : 1940 84 From: Braulio Fontana PCP: Tressa Rosales Status:ADM IN Location: [facility] [id number] HPI Consult Data Date of Consult: 01/20/25 [...] Patient notes that she lives in a [facility] and ambulates with a walker or uses a wheelchair. She does notwalk independently. She was reported to have fallen yesterday and sustained an injury to her right hand and hip. She was seen at an outside hospital and requested transfer to [place] as they did not have orthopedics. She [...] denies any current treatment or active malignancies. [facility] Medical History Nocturia Urge incontinence Overactive bladder Former tobacco use Depression Hypertension Fall [facility] (closed head injury) Presence of stent in coronary artery (~12/22/21) Atherosclerotic heart disease of saxman coronary artery without angina pectoris ST elevation [...] mg chewable tablet 125 mg PO QD-BID MO N abdominal 12/28/24 Unknown History (Mylanta Gas) [...] 81.1 H, Lymph % (Auto) 11.1 L, [place] % (Auto) 7.2, Eos % (Auto) 0.1, [...] Sl. Cloudy, Urine pH 6.5, Ur Specific Pauline 1.010, Urine Protein 15 H, Urine Glucose [...] Signature (if applicable): CC: Tressa Rosales~ Signed [facility] Work Phone: 1([phone] 611-994210-10-2025 Radiology Diagnostic study note [facility] Imaging Services [address] [place], [place] [address] Hip Min 2 Views (Portable) MR#: [id number] Acct: [id number] Name: MONISHA COHN Rep #: [id number] 4 : 1940 F 84 From: Christine Gillette MD PCP: Tressa Rosales Status: ADM IN Study:Hip Min 2 Views (Portable) Date of Exam : 01/20/25 Exam# [id number] Ordering Dr: Rachele Tijerina MD PROCEDURE: HIP [...] hip surgical and chronic changes. Reading [facility] CC: Dr. Braulio Tijerina MD; Tressa Rosales ~ Engineering Production Liaison: Signed [facility]10-10-2025 Consult note Author Jareth [facility] Note Date/Time January 20, 2025 2 :03pm [facility] Medical Records Department [address] [place] [address] Pre-Anesthesia Evaluation 01/20/25 1342 MR#: [id number] Acct: [id number] Name: MONISHA COHN Rep #:[id number] 7 : 1940 84 From: Jareth Shepard MD PCP: Tressa Rosales Status:ADM IN Y Race: C Location: [place] [address] -1 ASA Classification* ASA Classification ASA Classification: [...] hip hemiarthroplasty Anesthesia History Anesthesia History - human resources hr representative: Anesthesia History - human resources hr representative Hx Hospitalization Any Problems With Anesthesia No [...] take am of surgery PONV PONV - human resources hr representative: PONV - human resources hr representative Female HX of Motion Sickness HX of N/V After Surgery Non-Smoker Duration of Surgery greater than 60 minutes Number of Risk Factors PONV Score Height & Weight Height & Weight: Anesthesia: Height & Weight Height 5 ft 1.81 in 01/20/25 11:58 Weight: 75 kg 01/20/25 11:58 Body Mass Index (BMI) 30.4 01/20/25 11:58 Respiratory Assessment Respiratory Assessment - human resources hr representative: Respiratory Tract Infection Hx - human resources hr representative Hx Respiratory Tract Infection Yes: covid 01/20/25 [...] STOP Sleep Apnea STOP Sleep Apnea - human resources hr representative: STOP Sleep Apnea - human resources hr representative Hx Hypertension Yes 01/20/25 01:18 Hx Sleep [...] 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 - human resources hr representative: 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 - human resources hr representative Tobacco Use Smoking Status Former smoker 01/20/25 01:18 Hx Tobacco Use No 01/20/25 01:18 Years Smoking Packs Smoked per Day Smoking Cessation Date was No - quit smoking greater 01/20/25 01:18 within the last 15 years than 15 years ago Hx Smoking Cessation Date 04/13/79 01/20/25 01:18 Hx Smoking Cessation Counseling Hematologic Medial History Hematologic Hx - human resources hr representative: Hematologic Medical Hx - molding associate Hx of Blood Transfusion Yes 01/20/25 01:18 [...] confused, unrespo /Reproduction History /Reproductive History - human resources hr representative: /Reproductive Hx- human resources hr representative Hx Now No 01/20/25 01:31 Gestational Age [...] mls @ 15 mls/hr 01/20/25 01:13 IV .[id number] PRN Saline Flush Sodium Chloride 250 mls @ 15 mls/hr 01/20/25 01:13 IV .[id number] PRN Additional IVPB Infusion Lactated Ringer's 1,000 [...] coronary artery (~12/22/21) Atherosclerotic heart disease of saxman coronary artery without angina pectoris ST elevation [...] mg chewable tablet 125 mg PO QD-BID MO N abdominal 12/28/24 Unknown History (Mylanta Gas) [...] MD Cosigner Signature: Date CC: ~ Signed [facility] Work Phone: 1(452) 451-236010-10-2025 Consult note [facility] Medical Records Department [address] [place] [address] Consultation - Orthopedics 01/20/25 1415 MR#: [id number] Acct: [id number] Name: MONISHA COHN Rep #:[id number] 9 : 1940 84 From: Braulio Fontana PCP: Tressa Rosales Status:ADM IN Location: [facility] JD816-9 HPI Consult Data Date of Consult: 01/20/25 [...] Patient notes that she lives in a jail facility and ambulates with a walker or uses a wheelchair. She does notwalk independently. She was reported to have fallen yesterday and sustained an injury to her right hand and hip. She was seen at an outside hospital and requested transfer to [place] as they did not have orthopedics. She [...] Patient denies any current treatment or activemalignancies. [facility] Medical History Nocturia Urge incontinence Overactive bladder Former tobacco use Depression Hypertension Fall [facility] (closed head injury) Presence of stent in coronary artery (~12/22/21) Atherosclerotic heart disease of saxman coronary artery without angina pectoris ST elevation [...] mg chewable tablet 125 mg PO QD-BID MO N abdominal 12/28/24 Unknown History (Mylanta Gas) [...] 81.1 H, Lymph % (Auto) 11.1 L, Montour % (Auto) 7.2, Eos % (Auto) 0.1, [...] Sl. Cloudy, Urine pH 6.5, Ur Specific Pauline 1.010, Urine Protein 15 H, Urine Glucose [...] Signature (if applicable): CC: Tressa Rosales~ Signed [facility]10-10-2025 Progress note Author Darline Lundy [facility] Note Date/Time January 20, 2025 1 2:07pm [facility] Medical Records Department [address] [place] [address] Progress Note - Hospitalist 01/20/25 0842 MR#: [id number] Acct: [id number] Name: MONISHA COHN Rep #:[id number] 3 : 1940 84 From: Darline Lundy MD PCP: Tressa Rosales Status:ADM IN Location: MS3 KH074-4 Hospitalist Note 84y/o F with a history of coronary artery disease with RCA stent, Parkinson's disease, fibromyalgia and overactive bladder, recent COVID diagnosis, who presented [facility] ED 01/20/2025 as a transfer from [facility] after she was found to have an impacted right femoral neck fracture. Reportedlyshe was at [facility] when she sustained a mechanical fall on her right side and subsequently could not please ambulate to assess for home O2 needs. Was noted to have a scalp hematoma and metacarpal fracture of right hand but denied any loss of consciousness with the fall. [facility] physician spoke to Dr. Tijerina withorthopedisofi [...] Cosigner Signature (if applicable): CC: ~ Signed [facility] Work Phone: 1(576) 982-160010-10-2025 Consult note [facility] Medical Records Department [address] [place] [address] Pre-Anesthesia Evaluation 01/20/25 1342 MR#: [id number] Acct: [id number] Name: MONISHA COHN Rep #:[id number] 7 : 1940 84 From: Jareth Shepard MD PCP: Tressa Rosales Status:ADM IN Y Race: C Location[place] [facility] ASA Classification* ASA Classification ASA Classification: [...] hip hemiarthroplasty Anesthesia History Anesthesia History - human resources hr representative: Anesthesia History - human resources hr representative Hx Hospitalization Any Problems With Anesthesia No [...] take am of surgery PONV PONV - human resources hr representative: PONV - human resources hr representative Female HX of Motion Sickness HX of N/V After Surgery Non-Smoker Duration of Surgery greater than 60 minutes Number of Risk Factors PONV Score Height & Weight Height & Weight: Anesthesia: Height & Weight Height 5 ft 1.81 in 01/20/25 11:58 Weight: 75 kg 01/20/25 11:58 Body Mass Index (BMI) 30.4 01/20/25 11:58 Respiratory Assessment Respiratory Assessment - human resources hr representative: Respiratory Tract Infection Hx - human resources hr representative Hx Respiratory Tract Infection Yes: covid 01/20/25 [...] STOP Sleep Apnea STOP Sleep Apnea - human resources hr representative: STOP Sleep Apnea - human resources hr representative Hx Hypertension Yes 01/20/25 01:18 Hx Sleep [...] 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 - human resources hr representative: 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 - human resources hr representative Tobacco Use Smoking Status Former smoker 01/20/25 01:18 Hx Tobacco Use No 01/20/25 01:18 Years Smoking Packs Smoked per Day Smoking Cessation Date was No - quit smoking greater 01/20/25 01:18 within the last 15 years than 15 years ago Hx Smoking Cessation Date 04/13/79 01/20/25 01:18 Hx Smoking Cessation Counseling Hematologic Medial History Hematologic Hx - human resources hr representative: Hematologic Medical Hx - molding associate Hx of Blood Transfusion Yes 01/20/25 01:18 [...] confused, unrespo /Reproduction History /Reproductive History - human resources hr representative: /Reproductive Hx- human resources hr representative Hx Now No 01/20/25 01:31 Gestational Age [...] mls @ 15 mls/hr 01/20/25 01:13 IV .[id number] PRN Saline Flush Sodium Chloride 250 mls @ 15 mls/hr 01/20/25 01:13 IV .[id number] PRN Additional IVPB Infusion Lactated Ringer's 1,000 [...] Glycol 3350 17 Gm Packet PO DAILY [facility] Psyllium Hydrophilic Mucilloid 1 packet 01/20/25 10:00 Psyllium 1 Packet PO DAILY [facility] Sodium Chloride 10 - 40 ml 01/20/25 01:13 01/20/25 09:21 0.9% Saline Lock 10 Ml Syringe IV 10 ml UD PRN Administration SALINE FLUSH PFSH Medical History Nocturia Urge incontinence Overactive bladder Former tobacco use Depression Hypertension Fall [facility] (closed head injury) Presence of stent in coronary artery (~12/22/21) Atherosclerotic heart disease of saxman coronary artery without angina pectoris ST elevation [...] mg chewable tablet 125 mg PO QD-BID MO N abdominal 12/28/24 Unknown History (Mylanta Gas) [...] MD Cosigner Signature: Date CC: ~ Signed [facility]10-10-2025 Progress note [facility] Medical Records Department [address] [place] [address] Progress Note - Hospitalist 01/20/25 0842 MR#: [id number] Acct: [id number] Name: MONISHA COHN Rep #:[id number] 3 : 1940 84 From: Darline Lundy MD PCP: Tressa Rosales Status:ADM IN Location: MS3 CW131-5 Hospitalist Note 84y/o F with a history of coronary artery disease with RCA stent, Parkinson's disease, fibromyalgiaand overactive bladder, recent COVID diagnosis, who presented [facility] ED 01/20/2025 as a transfer from [facility] after she was found to have an impacted right femoral neck fracture. Carla masterson was at [facility] when she sustained a mechanical fall on her right side and subsequently could not please ambulate to assess for home O2 needs. Was noted to have a scalp hematoma and metacarpal fracture of right hand but denied any loss of consciousness with the fall. [facility] physician spoketo Dr. Tijerina withorthopedics who recommended admission to the hospital service with formal consultation for ORIF. Patient was transferred to a medical floor. # Impacted right intertrochanteric fracture of the femoral neck and metacarpal fracture right hand -After mechanical fall at [facility] -Ortho consulted -Patient n.p.o. -Pain control/supportive care [...] Cosigner Signature (if applicable): CC: ~ Signed [facility]10-10-2025 History and physical note Author Stephan Beard [facility] Note Date/Time January 20, 2025 6 :54am [facility] Medical Records Department [address] [place] [address] H&P Exam - Hospitalist 01/20/25 0112 MR#: [id number] Acct: [id number] Name: MONISHA COHN Rep #:[id number] 0 : 1940 84 From: Stephan Hernandez DO PCP: Tressa Rosales Status:ADM IN Location: [facility]3 WM522-8 [facility] - General General Date of Admission: 01/20/25 Date of Service: 01/20/25 Chief Complaint: Fall with Right Hip Fracture. HPI Narrative MONISHA COHN, is a 84 F with a past medical history of essential hypertension; currently not on treatment, hyperlipidemia; on atorvastatin, former tobacco abuse; with subsequent COPD and pulmonary hypertension, CAD; with RCA stent at [facility] in [place] (2009) and subsequent inferior wall ST elevation [place] s/p RCA stent with cardiogenic shock and [...] recently diagnosed COVID-19 who was transferred from [facility] she was diagnosed with an impacted Right [...] LOC with her fall. Dr. [facility] spoke to Dr. Tijerina of the orthopedic service here who recommended admission to the hospitalist service with formal consultation pending in the a.m. for ORIF. She was then admitted to the generalmedical floor for ongoing care for stay that is expected to extend beyond 2 midnights. [facility] Medical History Nocturia Urge incontinence Overactive bladder Former tobacco use Depression Hypertension Fall [facility] (closed head injury) Presence of stent in coronary artery (~12/22/21) Atherosclerotic heart disease of saxman coronary artery without angina pectoris ST elevation [...] mg-levodopa 100 mg 2 tab PO DAILY kelesy on 09/27/24 Unknown History tablet celecoxib 200 [...] mg chewable tablet 125 mg PO QD-BID MO N abdominal 12/28/24 Unknown History (Mylanta Gas) [...] in AM. Give acetaminophen as needed for xqfn-lt-atbdhgcn (level 1-5/10) pain or fever. Give morphine [...] before. 4. CAD; with RCA stent at [facility] in [place] (2009) and subsequent inferior wall ST elevation [place] s/p RCA stent with cardiogenic shock and [...] 75 minutes. Charges/Coding Visit Charges Inpatient E&M: 23800 Init Hosp L3 01/20/25 0654 <Electronically signed by Stephan Martel DO> Cosigner Signature (if applicable): CC: Dr. Stephan Martel DO; Tressa Rosales~ Signed [facility] Work Phone: 1(274) 378-262110-10-2025 History and physical note [facility] Medical Records Department [address] [place] [address] H&P Exam - Hospitalist 01/20/25 0112 MR#: [id number] Acct: [id number] Name: MONISHA COHN Rep #:[id number] 0 : 1940 84 From: Stephan Hernandez DO PCP: Tressa Rosales Status:ADM IN Location: ME3 DI266-3 [facility] - General General Date of Admission: 01/20/25 Date of Service: 01/20/25 Chief Complaint: Fall with Right Hip Fracture. HPI Narrative MONISHA COHN, is a 84 F with a past medical history of essential hypertension; currently not on treatment, hyperlipidemia; on atorvastatin, former tobacco abuse; with subsequent COPD and pulmonary hypertension, CAD; with RCA stent at [facility] in [place] (2009) and subsequent inferior wall ST elevation [place] s/p RCA stent with cardiogenic shock and [...] recently diagnosed COVID-19 who was transferred from [facility] she was diagnosed with an impacted Right [...] LOC with her fall. Dr. [facility] of [facility] spoke to Dr. Tijerina of the orthopedic service here who recommended admission to the hospitalist service with formal consultation pending in the a.m. for ORIF. She was then admitted to the generalmedical floor for ongoing care for stay that is expected to extend beyond 2 midnights. [facility] Medical History Nocturia Urge incontinence Overactive bladder Former tobacco use Depression Hypertension Fall [facility] (closed head injury) Presence of stent in coronary artery (~12/22/21) Atherosclerotic heart disease of saxman coronary artery without angina pectoris ST elevation [...] mg chewable tablet 125 mg PO QD-BID MO N abdominal 12/28/24 Unknown History (Mylanta Gas) [...] in AM. Give acetaminophen as needed for nduk-se-dchrekcq (level 1-5/10) pain or fever. Give morphine [...] before. 4. CAD; with RCA stent at [facility] in [place] (2009) and subsequent inferior wall ST elevation [place] s/p RCA stent with cardiogenic shock and [...] 75 minutes. Charges/Coding Visit Charges Inpatient E&M: 59865 Init Hosp L3 01/20/25 0654 Cosigner Signature (if applicable): CC: Dr. 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 Work Phone: 1(183) 447-414006-17-2025 [facility] [address] [place] [address] OFFICE VISIT Date of Service: 09/27/24 MR#: [id number] Acct: [id number] Name: MONISHA COHN Rep #: [id number] : 1940 Provider: Dr. Domingo Vernon MD Age/Sex: 84/F Location: [facility] Status: Signed HPI HPI History of [...] NIBP Intake Visit Reasons: 6 M FU Container Washer Required: No Accompanied by: Is patient in [...] past year?: Yes (no major injuries; 2) [facility] Medical History Atherosclerotic heart disease of saxman coronary artery without angina pectoris Bladder spasms [...] Supplemental Info Supplemental Information ECHOCARDIOGRAM 12/23/21 @ [facility] Left ventricular ejection fraction is normal, estimated [...] tricuspid valve regurgitation Cath Intervention 12/20/09 @ [facility] Percutaneous coronary angioplasty and stenting of the right coronary artery withtwo drug eluting stents 2.5x30mm and 2.5x12mm Cath Intervention 12/22/21 @ [facility] Percutaneous coronary intervention in the right coronary artery with a 2.75x22 mm MIKKI drug elutingstent Assessment and Plan Assessment and Plan (1) CAD (coronary artery disease): Status: Chronic Plan: History of inferior DC. History of drug-eluting stents placement to the [...] Date (if applicable) CC: Tressa Rosales ~ [facility]06-17-2025 Progress note Author Danielle Vernon [facility] Note Date/Time September 27, 2024 11:5 1am [facility] [place] [id number] [facility] [place] [address] OFFICE VISIT Date of Service: 09/27/24 MR#: [id number] Acct: [id number] Name: MONISHA COHN Rep #: [id number] : 1940 Provider: Dr. Domingo Vernon MD Age/Sex: 84/F Location: [facility] Status: Signed HPI HPI History of [...] NIBP Intake Visit Reasons: 6 M FU Container Washer Required: No Accompanied by: Is patient in [...] past year?: Yes (no major injuries; 2) [facility] Medical History Atherosclerotic heart disease of saxman coronary artery without angina pectoris Bladder spasms [...] Supplemental Info Supplemental Information ECHOCARDIOGRAM 12/23/21 @ [facility] Left ventricular ejection fraction is normal, estimated [...] tricuspid valve regurgitation Cath Intervention 12/20/09 @ [facility] Percutaneous coronary angioplasty and stenting of the right coronary artery withtwo drug eluting stents 2.5x30mm and 2.5x12mm Cath Intervention 12/22/21 @ [facility] Percutaneous coronary intervention in the right coronary artery with a 2.75x22 mm MIKKI drug eluting stent Assessment and Plan Assessment and Plan (1) CAD (coronary artery disease): Status: Chronic Plan: History of inferior DC. History of drug-eluting stents placement to the [...] Date (if applicable) CC: Tressa Rosales ~ [facility] Work Phone: [phone]) [phone] Instructions* Patient Instructions* Armen Madison MD - [...] effects of this neuropathy. documented in this encounterMarion Hospital04-18-2025 History of Present illness Narrative* Armen Madison MD - 07/29/2024 3:00 PM EDT [facility] [place] [facility] New Patient Visit Note Consultation [...] which included preparing to see the patient, pjhp-lo-sfiz patient care, completing clinical documentation, performing a medically appropriate examination, counseling and educating the patient/family/caregiver, and ordering medications, tests,or procedures. Armen Madison MD Neuromuscular Medicine (NM) [facility], [facility] [place] documented in this encounterMarion Hospital04-18-2025 NoteHNO ID: [id number] Author: ARMEN MADISON MD Service: ? Author Type: Physician Type: Progress Notes Filed: 07/29/2024 15:33 Note Text: [facility] New Patient Visit Note Consultation [...] will be communicated to the patient via telephone/Infolinkshart. Patient to call office if not contacted after expected testing turnaround time. I spent a total of 34 minutes on the date of the service which included prepari (more content not included)...[facility]03-18-2025 Instructions* Patient Instructions* Em Flynn APRN.CNP [...] or you can send a message through [employer]. You can also now schedule and select appointments through [employer]. Em Flynn APRN.RUPALI documented in this encounterMarion Hospital03-18-2025 History of Present illness Narrative* Em Flynn APRN.RUPALI - 06/28/2024 8:00 AM EDT [facility] - FOLLOW UP EVALUATION The patient consented to the use of ambient Nomacorc software for draft documentation of the visit consistent with [facility] s Notice of Privacy Practices. Alexandra Arreguin APRN.RUPALI [address] [address] Dear Alexandra Arreguin APRN.CNP: I had the [...] directives (living will and durable power of privacy attorney for healthcare): By Email: Send your document(s) to as an attachment in either PDF, TIFF, or JPEG format. By Mail: [facility] Information Management, Ab7 Advance Directive Processing [address] [place], [place] [address] By In person at any [facility] location Please note: You can use the address or fax number regardless of which [facility] you utilize, and we will make [...] to being in heaven due to her Episcopalian mark, which some people misinterpret as depression. Emiyl not report anxiety but does express concern [...] c) the amplitude decrements startingafter the 1st lkum-xwa-wtmyd sequence. Hand Movements Left 2-Mild. a) 3 [...] or around: 12/29/24 Level of service : 44365 (40-68 min). Time spent 59 min on the day of service, which included preparing to see the patient, dqzf-zv-koov patient care, completing clinical documentation, obtaining and/or reviewing separately obtained history, performing a medically appropriate examination, counseling and educating the patient/family/caregiver, and ordering medications, tests, or procedures. Em Flynn APRN.RUPALI documented in this encounterMarion Hospital03-18-2025 NoteHNO ID: [id number] Author: EM FLYNN APRN.CNP Service: ? Author Type: Nurse Practitioner Type: Progress Notes Filed: 06/28/2024 23:22 Note Text: [facility] - FOLLOW UP EVALUATION The patient consented to the use of ambient Nomacorc software for draft documentation of the visit consistent with [facility]?s Notice of Privacy Practices. Alexandra Arreguin APRN.CNP [address] [address] Dear Alexandra Arreguin APRN.CASE PACKER: I had the pleasure of seeing Ms. [...] directives (living will and durable power of privacy attorney for healthcare): By Email: Send your document(s) to as an attachment in either PDF, TIFF, or JPEG format. By Mail: [facility] Information Management, Ab7 Advance Directive Processing [address] [place], [place] [address] By In person at any [facility] location Please note: You can use the address or fax number regardless of which [facility] you utilize, and we will make [...] past who are n (more content not included)...[facility] 06-03-2024 Nuclear medicine Diagnostic study note [facility] Services [address] [place] [address] Hepatobilliary Img w/Pharm Int MR#: [id number] Acct: [id number] Name: MONISHA COHN Rep #: [id number] : 1940 F 84 From: Alejandro Tomlin MD PCP: Tressa Rosales Status: REG CLI Study:Hepatobilliary Img w/Pharm Int Date of Exam: 06/03/24 Exam# [id number] Ordering Dr: Deanna Lujan NP BEHAVIORAL HEALTH TECH-C PROCEDURE: HEPATOBILLIARY IMG W/PHARM INT REASON FOR [...] SCAN AND GALLBLADDER EJECTION FRACTION. Reading Location: [place] [address] CC: Didi VAZQUEZ NP-Mariajose Lujan; Tressa Rosales ~ Engineering Production Liaison: Signed [facility]12-04-2024 Evaluation note* Diagnosis Onset Date Resolution Status Admit Date Argyria chronic March 16, 2024 8:48am CAD (coronary artery disease) chroni c March 16, 2024 8:48am Essential (primary) hypertension chronic March 16 8:48am Hyperlipidemia chronic March 162023 8:48am Non-rheumatic mitral regurgitation chronic March 16 8:48am Parkinsons disease chronic Dece 2023 8:48am [facility] Work Phone: [phone]) 151-505909-19-2024 Instructions* Patient Instructions* Em Flynn APRN.CASE PACKER - 12/31/2023 9:49 AM EDT It was [...] directives (living will and durable power of privacy attorney for healthcare): By Email: Send your document(s) to as an attachment in either PDF, TIFF, or JPEG format. By Mail: [facility] Information Management, Ab7 Advance Directive Processing [address] [place], [place] [address] By In person at any [facility] location Please note: You can use the address or fax number regardless of which [facility] you utilize, and we will make sure it is filed appropriately. Movement Disorders Medication Schedule: Medications 8AM 12PM 4PM 8PM Sinemet 25/100 2 1.5 1.5 1.5 Return at or around: 03/31/24 If there are any concerns before your next visit, please call or you can send a message through [employer]. You can also now schedule and select appointments through [employer]. Em Flynn APRN.RUPALI documented in this encounterMarion Hospital09-19-2024 History of Present illness Narrative* Em Flynn APRN.RUPALI - 12/31/2023 9:00 AM EDT [facility] - FOLLOW UP EVALUATION Alexandra Arreguin APRN.CNP [address] [facility] [address] [facility] [address] Dear Alexandra Arreguin APRN.CNP: I had the [...] Double vision: Please follow up with your office machine service supervisor as scheduled Interested in clinical research? Not [...] other sensations: She is seen by an undercar specialist for her hip. Speech/Swallowing Speech problems: [...] c) the amplitude decrements startingafter the 1st kdsr-hgd-ntced sequence. (She has a trigger finger) Hand [...] directives (living will and durable power of privacy attorney for healthcare): By Email: Send your document(s) to as an attachment in either PDF, TIFF, or JPEG format. By Mail: [facility] Information Management, Ab7 Advance Directive Processing [address] [place], [place] [address] By In person at any [facility] location Please note: You can use the address or fax number regardless of which [facility] you utilize, and we will make sure it is filed appropriately. Updated Movement Disorders Medication Schedule: Medications 8AM 12PM 4PM 8PM Sinemet 25/100 2 1.5 1.5 1.5 Return at or around: 03/31/24 Level of service : 74716 ( 30-39 min). Time spent 39 min on the day of service, which included preparing to see the patient, gtdb-aj-abco patient care, completing clinical documentation, obtaining and/or reviewing separately obtained history, performing a medically appropriate examination, counseling and educating the patient/family/caregiver, and ordering medications, tests, or procedures. Em Flynn APRN.RUPALI documented in this encounterMarion Hospital08-09-2024 Note* Letter - Coordinator, Mammography - 11/20/2023 10:34 AM EDT November 20, 2023 PID: [id number] Monisha Brink [address] [place] [address] Dear Ms. Cohn, We are pleased to [...] report will be kept on file at [facility] as part of your permanent medical record and are available for your continuing care. Thank you for allowing us to help in meeting your health care needs. Sincerely, Dr. George Interpreting Radiologist [facility] (Normal over 40) [facility]08-09-2024 Note* Letter - Coordinator, Mammography - 11/20/2023 10:34 AM EDT November 20, 2023 PID: [id number] Monisha Keena [address] [place] [address] Dear Ms. Cohn, We are pleased to [...] report will be kept on file at [facility] as part of your permanent medical record and are available for your continuing care. Thank you for allowing us to help in meeting your health care needs. Sincerely, Dr. George Interpreting Radiologist [facility] (Normal over 40) [facility]08-09-2024 Miscellaneous Notes* Letter - Coordinator, Mammography - 11/20/2023 10:34 AM EDT November 20, 2023 PID: [id number] Monisha Songtke [address] [place] [address] Dear Ms. Cohn, We are pleased to [...] report will be kept on file at [facility] as part of your permanent medical record and are available for your continuing care. Thank you for allowing us to help in meeting your health care needs. Sincerely, Dr. George Interpreting Radiologist [facility] (Normal over 40) * Letter - Coordinator, Mammography - 11/20/2023 10:34 AM EDT November 20, 2023 PID: [id number] Monisha Songtke [address] [place] [address] Dear Jorgito Cohn, We are pleased to [...] report will be kept on file at [facility] as part of your permanent medical record and are available for your continuing care. Thank you for allowing us to help in meeting your health care needs. Sincerely, Dr. George Interpreting Radiologist [facility] (Normal over 40) documented in this encounterMarion Hospital08-09-2024 History of Present illness Narrative* Chitra Larson Tech - 11/20/2023 7:45 AM EDT Radiology Service Progress Note PATIENT NAME: Monisha PANTOJAN: [id number] DATE OF SERVICE: November 20, 2023 TIME: [...] PATIENT PRESENTS WITH AN IMPLANTABLE OR ATTACHED PAPER TUBE CUTTER: No RADIOLOGY DEPARTMENT: Mammography PERIPHERAL IV DATA: Not applicable SIGNED BY: Valentin Manzanares November 20, 2023 9:23 AM documented in this encounterMarion Hospital07-10-2024 Telephone encounter Note * Telephone Encounter - Rosie Cruz RN - 10/21/2023 10:01 AM EDT Received Nintexil 10-20-23 at 12:28 PM. Nv this is Rissa at [facility]. Calling in regards to Monisha Cohn. 42. She gotan order from the orthopedic to do therapy which they have started but they wanted to know what wastorn and I believe Dr. Sheehan was the one who did the MRI, or read the MRI. If someone could fax us over the notes they would appreciate it. The fax number is [phone]. If you have any questions you can call me back at [phone]. Thank you. Last office visit note with Stephan Sheehan PA-C & imaging report faxed to [facility] PT department. [facility]07-10-2024 Miscellaneous Notes* Telephone Encounter - Rosie Cruz RN - 10/21/2023 10:01 AM EDT Received voicemail 10-20-23 at 12:28 PM. Hi this is Rissa at [facility]. Calling in regards to Monisha Cohn. 42. She gotan order from the orthopedic to do therapy which they have started but they wanted to know what wastorn and I believe Dr. Sheehan was the one who did the MRI, or read the MRI. If someone could fax us over the notes they would appreciate it. The fax number is [phone]. If you have any questions you can call me back at [phone]. Thank you. Last office visit note with Stephan Sheehan PA-C & imaging report faxed to [facility] PT department. documented in this encounterMarion Hospital07-05-2024 Telephone encounter Note * Telephone Encounter - Karolina Sanders RN - 10/16/2023 2:31 PM EDT Called back number and spoke with therapist. Told her Yara's note Range of motion and rotator cuffstrengthening Claudia oWod PA-C [facility] Work Phone: 1(244) 278-722707-05-2024 Miscellaneous Notes* Telephone Encounter - Karolina Sanders [...] for the patient, please call facility at [phone], they alsoasked if we could send any office visit notes. documented in this encounterMarion Hospital07-05-2024 Telephone encounter Note * Telephone Encounter - Edwina Flanagan - 10/16/2023 10:02 AM EDT Patient is staying at a facility and is going physical therapy there. They were inquiring about what specific program needs to be done for the patient, please call facility at [phone], they alsoasked if we could send any office visit notes. [facility]06-21-2024 History of Present illness Narrative* Yury Jasso MD - 10/02/2023 8:54 AM EDTAssociated Order(s): Large Joint Arthro/Inj: L shoulder joint Post-Procedure Diagnose(s): Acute pain of left shoulder Images from the original note were not included. ORTHOPAEDIC SHOULDER & ELBOW SERVICE HISTORY & PHYSICAL EXAM REFERRING PROVIDER: Stephan Sheehan [address] [place], [place] [id number] CHIEF COMPLAINT: left shoulder pain PAIN EVALUATION 10/02/2023 0852 Pain Location: Shoulder-Left Description: Radiating;Aching;Sharp radiates to elbow, also to wrist Frequency: Continuous Intervention/Comfort measure: Heat;Medication;Reposition;Relaxation;Exercise tylenol, tramadol Comments: [facility] Monisha Cohn is a 83 year old [...] negative Drop arm test: negative Biceps/bambi Signs Posey's test: positive Michael deformity: negative Speed's test: [...] REFERRING PHYSICIAN: The patient was referred to ct for consultation by the following physician. This consultation note will be sent to the following physician by either mail or electronic medical record. Stephan Sheehan [address] [place] [address] Yury Jasso MD Shoulder & Elbow Surgeon Department of Orthopaedic Surgery [facility] documented in this encounterMarion Hospital06-18-2024 History of Present illness Narrative* Kelly [...] PATIENT PRESENTS WITH AN IMPLANTABLE OR ATTACHED PAPER TUBE CUTTER: No RADIOLOGY DEPARTMENT: General X-ray: Exam(s) Completed: Upper Extremity X- Ray(s): Shoulder, TRUE AP/ AXILLARY / SUPRA OUTLET left PERIPHERAL IV DATA: Not applicable SIGNED BY: Valentin Siddiqui September 29, 2023 10:18 AM documented in this encounterMarion Hospital06-18-2024 NoteHNO ID: [id number] Author: KELLY STEWART Tech Service: Radiology Author Type: Carpet Layer Helper Type: Progress Notes Filed: 09/29/2023 10:18 Note [...] PATIENT PRESENTS WITH AN IMPLANTABLE OR ATTACHED PAPER TUBE CUTTER: No RADIOLOGY DEPARTMENT: General X-ray: Exam(s) Completed: Upper Extremity X-Ray(s): Shoulder, TRUE AP / AXILLARY / SUPRA OUTLET left PERIPHERAL IV DATA: Not applicable SIGNED BY: Valentin Siddiqui September 29, 2023 10:18 AMThe [facility]Haujzcel23-12-8573 Instructions* Patient Instructions* Em Flynn APRN.CASE PACKER - 09/29/2023 9:38 AM EDT It was [...] Double vision: Please follow up with your office machine service supervisor as scheduled Interested in clinical research? Not currently Movement Disorders Medication Schedule: Medications 8AM 12PM 4PM 8PM Sinemet 25/100 2 1.5 1.5 1.5 Return at or around: 12/30/23 If there are any concerns before your next visit, please call or you can send a message through [employer]. You can also now schedule and select appointments through [employer]. Em Flynn APRN.RUPALI documented in this encounterMarion Hospital06-18-2024 History of Present illness Narrative* Em Flynn APRN.CNP - 09/29/2023 9:00 AM EDT [facility] - FOLLOW UP EVALUATION Alexandra Arreguin APRN.CASE PACKER [address] [address] Dear Alexandra Arreguin APRN.CASE PACKER: I had the pleasure of seeing Ms. [...] 10points or more) please discuss with your vegetables cook. Hallucinations: I am hoping that the reduction in Sinemet helps these, but if it does not and they are bothering you, please let me know. Dysphagia (difficulty swallowing): I am ordering speech therapy for this and your quiet speech Double vision: Please follow up with your office machine service supervisor Left arm pain/numbness and tingling: I have [...] them. These started before she moved to [place] and after she had her heart attack while in the hospital. Apathy: no She has motivation and is trying really hard to get out of the facility and move back [facility] [place]. Impulse control disorder: No Palliative Concerns: Caregiver burden: Spiritual concerns: No Advanced directives on file: No I offered a SW consult but she wants to wait until she moves back to [place]. Palliative services: Therapy and Exercise: Last PT [...] the amplitude decrements starting after the 1st ooqp-sas-jijkg sequence. Arm Movements Right 1-Slight. a) the [...] Double vision: Please follow up with your office machine service supervisor as scheduled Interested in clinical research? Not currently Updated Movement Disorders Medication Schedule: Medications 8AM 12PM 4PM 8PM Sinemet 25/100 2 1.5 1.5 1.5 Return at or around: 12/30/23 Level of service : 35736 ( 30-39 min). Time spent 37 min on the day of service, which included preparing to see the patient, vzmz-fi-afai patient care, completing clinical documentation, obtaining and/or reviewing separately obtained history, performing a medically appropriate examination, counseling and educating the patient/family/caregiver, and ordering medications, tests, or procedures. Em Flynn APRN.CASE PACKER documented in this encounterMarion Hospital06-12-2024 NoteIMPRESSION: INCOMPLETE: NEEDS ADDITIONAL IMAGING EVALUATION Probable benign nodule retroareolar region LEFT breast found using tomosynthesis today. Benign-appearing asymmetric glandular tissue upper outer aspect LEFT breast. Ultrasound correlation will be performed. LIMITED ULTRASOUND OF LEFT BREAST: 09/23/2023 RESULT: Comparison is made to exam dated: 08/13/2023 mammogram - [facility]. Ultrasound of was performed. Imaging was [...] screening schedule is recommended. Ajay Bullock M.D. [facility]/gi:09/23/2023 10:55:35 Multiple national specialty organizations have released breast cancer screening guidelines for women at average risk for developing breast cancer - guidelines that are based on both evidence and opinion, yet differ on when to start and how often to screen for breast cancer. With representation from Breast Imaging, Internal Medicine, Women's Health, Family Medicine, and Medical/Surgical Oncology, the [facility] has carefully reviewed the data and [...] their providers when to stop screening mammograms. Biomathematician(s): RT Yumiko(R)(Tonie), [facility]; RT Nicole(R), [facility] OVERALL STUDY BIRADS: 2 Benign finding Engineering Production Liaison: Gi Transcribe Date/Time: Sep 23 2023 9:21A Dictated by : AJAY BULLOCK MD This examination was interpreted and the report reviewed and electronically signed by: AJAY BULLOCK MD on Sep 23 2023 10:55AM [facility] [id number] History of Present illness Narrative* Tiago Mcnamara [...] PATIENT PRESENTS WITH AN IMPLANTABLE OR ATTACHED PAPER TUBE CUTTER: No RADIOLOGY DEPARTMENT: Mammography PERIPHERAL IV DATA: [...] PATIENT PRESENTS WITH AN IMPLANTABLE OR ATTACHED PAPER TUBE CUTTER: No RADIOLOGY DEPARTMENT: Ultrasound PERIPHERAL IV DATA: Not applicable SIGNED BY: Virginie Rios RDMS September 23, 2023 10:39 AM documented in this encounterMarion Hospital06-12-2024 NoteHNO ID: [id number] Author: TIAGO MCNAMARA CT Service: Radiology Author [...] PATIENT PRESENTS WITH AN IMPLANTABLE OR ATTACHED PAPER TUBE CUTTER: No RADIOLOGY DEPARTMENT: Mammography PERIPHERAL IV DATA: Not applicable SIGNED BY: RT Yumiko September 23, 2023 9:42 [id number] NoteHNO ID: [id number] Author: VIRGINIE RIOS RDMS Service: Radiology Author Type: Crisis Nurse Type: Progress Notes Filed: 09/23/2023 10:39 Note [...] PATIENT PRESENTS WITH AN IMPLANTABLE OR ATTACHED PAPER TUBE CUTTER: No RADIOLOGY DEPARTMENT: Ultrasound PERIPHERAL IV DATA: Not applicable SIGNED BY: Virginie Rios RDMS September 23, 2023 10:39 [id number] Telephone encounter Note* Telephone Encounter - Mary Ann Villalobos - 09/02/2023 1:18 PM EDT Received call from Rissa at [facility]. Patient would like to complete Physical Therapy on-site at the facility. Order for PT faxed to their facility via [facility]. Mary Ann Villalobos [facility]05-22-2024 Miscellaneous Notes* Telephone Encounter - Mary Ann Villalobos - 09/02/2023 1:18 PM EDT Received call from Rissa at [facility]. Patient would like to complete Physical Therapy on-site at the facility. Order for PT faxed to their facility via [facility]. Mary Ann Villalobos documented in this encounterMarion Hospital05-16-[facility]24 History of Present illness Narrative* Stephan Sheehan PA-C - 08/27/2023 1:40 PM EDT Images from the original note were not included. Stephan Sheehan PA-C [facility] [address] [place] [address] 08/27/2023 ASSESSMENT AND PLAN: Assessment : Encounter [...] today with this patient visit. This includes bzcv-ki-xotk time, review of chart records regarding conservative care history, spine- pertinent imaging, and communication/care coordination with referring provider, problem-specific history-taking and counseling/education regarding treatment options. cc: Em Flynn [address] [address] Results of consultation to be transmitted via electronic medical record for those providers who practice within [facility] [place] or with access to [employer] via MD Connect, or via letter. ######################################################################## [...] L: 5/5 Triceps R: 5/5 L: 4/5 Field Placement Director R: 5/5 L: 5/5 Interossei R: +4/5 [...] STUDIES: See discussion above documented in this encounterMarion Hospital05-[facility]24 Note* Letter - Coordinator, Mammography - 08/14/2023 11:00 AM EDT August 14, 2023 PID: [id number] Monisha Cohn [address] [place] [address] Dear Ms. Cohn, Your recent breast imaging [...] so).Additional Imaging cannot be self scheduled in [facility]. If you DO NOT have a healthcare provider (ie you did not have an order/prescription for your screening mammogram): Please call to schedule an appointment for your additional imaging (if you have not already done so). Additonal Imaging cannot be self scheduled in [facility]. This exam cannot be self scheduled in [facility]. You must have an order/prescription from your physician when calling to schedule your appointment. If your order/prescription is not electronic, you must bring the hard copy with you on the day of your exam Your imaging studies and reports are kept on file at [facility] as part of your permanent medical record, and are available for your continuing care. Thank you for allowing us to help in meeting your health care needs. Sincerely, Dr. Castellanos Interpreting Radiologist [facility] (Additional imaging) [facility]05-03-2024 Miscellaneous Notes* Letter - Coordinator, Mammography - 08/14/2023 11:00 AM EDT August 14, 2023 PID: [id number] Monisha Songtke [address] [place] [address] Dear Ms. Cohn, Your recent breast imaging [...] so).Additional Imaging cannot be self scheduled in [facility]. If you DO NOT have a healthcare provider (ie you did not have an order/prescription for your screening mammogram): Please call to schedule an appointment for your additional imaging (if you have not already done so). Additonal Imaging cannot be self scheduled in [facility]. This exam cannot be self scheduled in [facility]. You must have an order/prescription from your physician when calling to schedule your appointment. If your order/prescription is not electronic, you must bring the hard copy with you on the day of your exam Your imaging studies and reports are kept on file at [facility] as part of your permanent medical record, and are available for your continuing care. Thank you for allowing us to help in meeting your health care needs. Sincerely, Dr. Castellanos Interpreting Radiologist [facility] (Additional imaging) documented in this encounterMarion Hospital05-02-2024 History of Present illness Narrative* Tiago [...] PATIENT PRESENTS WITH AN IMPLANTABLE OR ATTACHED PAPER TUBE CUTTER: No RADIOLOGY DEPARTMENT: Bone Density and Mammography PERIPHERAL IV DATA: Not applicable SIGNED BY: ANCA López August 13, 2023 2:15 PM documented in this encounterMarion Hospital05-02-2024 NoteHNO ID: [id number] Author: TIAGO MCNAMARA CT Service: Radiology Author [...] PATIENT PRESENTS WITH AN IMPLANTABLE OR ATTACHED PAPER TUBE CUTTER: No RADIOLOGY DEPARTMENT: Bone Density and Mammography PERIPHERAL IV DATA: Not applicable SIGNED BY: ANCA López August 13, 2023 2:15 PMThe [facility] [id number] Telephone encounter Note* Telephone Encounter - Em Flynn APRN.CASE PACKER - 08/03/2023 6:17 PM EDT I called and reviewed her results with her and let her know that I did communicate with a spine medicine provider who also reviewed her cervical spine MRI. He recommended that she start with spine medicine so I will have our schedulers call to set this up. She said they need to arrange this with Rissa at the [facility] as this is the individual who would drive her to her appointments. STONE Lockhart [facility]04-22-2024 Miscellaneous Notes* Telephone Encounter - Em [...] to arrange this with Rissa at the [facility] as this is the individual who would drive her to her appointments. STONE Lockhart documented in this encounterMarion Hospital03-25-2024 Instructions* Patient Instructions* Em Flynn APRN.CNP [...] 10points or more) please discuss with your vegetables cook. Date/Time BP Sitting Heart Rate Sitting BP Standing Heart Rate Standing Hallucinations: I am hoping that the reduction in Sinemet helps these, but if it does not and they are bothering you, please let me know. Dysphagia (difficulty swallowing): I am ordering speech therapy for this and your quiet speech Vision changes: Please follow up with your office machine service supervisor. Left arm pain/numbness and tingling: I have ordered a neck MRI. Movement Disorders Medication Schedule: Medications 8AM 12PM 4PM 8PM Sinemet 25/100 2 1.5 1.5 1.5 Return in about 3 months (around 10/06/2023). If there are any concerns before your next visit, please call or you can send a message through [employer]. You can also now schedule and select appointments through [employer]. Em Flynn APRN.RUPALI documented in this encounterMarion Hospital03-25-2024 History of Present illness Narrative* Em Flynn APRN.CNP - 07/06/2023 8:22 AM EDT [facility] - FOLLOW UP EVALUATION Alexandra Arreguin APRN.CASE PACKER [address] [address] Dear Alexandra Arreguin APRN.CNP: I had the [...] points or more) please discuss with your vegetables cook. Date/Time BP Sitting Heart Rate Sitting BP [...] They still want to move back to [place]. She was discharged from physical therapy. She [...] them. These started before she moved to [place] and after shehad her heart attack while in the hospital. Apathy: no She has motivation and is trying really hard to get out of the facility. Impulse control disorder: No Palliative Concerns: Caregiver burden: Spiritual concerns: No Advanced directives on file: No I offered a SW consult but she wants to wait until she moves back to [place]. Palliative services: Therapy and Exercise: Last PT [...] the amplitude decrements starting after the 1st noel-ykr-jjzed sequence. Arm Movements Right 1-Slight. a) the [...] 10points or more) please discuss with your vegetables cook. Date/Time BP Sitting Heart Rate Sitting BP Standing Heart Rate Standing Hallucinations: I am hoping that the reduction in Sinemet helps these, but if it does not and they are bothering you, please let me know. Dysphagia (difficulty swallowing): I am ordering speech therapy for this and your quiet speech Vision changes: Please follow up with your office machine service supervisor. Left arm pain/numbness and tingling: I have ordered a neck MRI. Updated Movement Disorders Medication Schedule: Medications 8AM 12PM 4PM 8PM Sinemet 25/100 2 1.5 1.5 1.5 Level of service : 80022 (40-54 min). Time spent 45 min on the day of service, which included preparing to see the patient, tkum-ik-lbry patient care, completing clinical documentation, obtaining and/or reviewing separately obtained history, performing a medically appropriate examination, counseling and educating the patient/family/caregiver, and ordering medications, tests, or procedures. Em Flynn APRN.CASE PACKER documented in this encounterMarion Hospital01-19-2024 Discharge summary Author Law Gold [facility] May 01, 2023 4:21pm Note Date/Time May 01, 2023 1 :42pm [facility] Medical Records Department [address] [place] [address] Emergency Department Summary 05/01/23 MR#: [id number] Acct: [id number] Name: MONISHA COHN Rep #:[id number] 9 : 1940 83 From: Law Longoria [...] any other injuries. Patient denies any lacerations. [facility] Medical History Atherosclerotic heart disease of saxman coronary artery without angina pectoris Bladder spasms [...] motor deficits and no sensory deficits noted [place] Coma Scale: document GCS findings Spontaneous Obeys [...] % (Auto) 62.2 Lymph % (Auto) 19.9 Montour % (Auto) 11.6 H Eos % (Auto) [...] Alexandra Arreguin NP Referrals: Alexandra Arreguin NP, BEHAVIORAL HEALTH TECH-C [Primary Care Provider] - 5-7 Days Disposition Disposition: Home, Self Care What to do if you have Problems For any increased pain, shortness of breath, bleeding, nausea or vomiting, chestpain, or any unexpected problems, contact your Primary Care Provider. Call [facility] ([phone]) or report to the closest Emergency Room. Call 911 if necessary. 05/01/23 1621 <Electronically signed by Law Gold DO> Cosigner Signature (if applicable): CC: BEHAVIORAL HEALTH TECH-C Alexandra Arreguin ~ Signed [facility] Work Phone: 1(360) 716-196810-27-2023 Discharge summary Author Darline Lundy [facility] February 06, 2023 2:09pm Note Date/Time February 06, 2023 1 2:33pm [facility] Medical Records Department [address] [place] [address] Transfer to [facility] MR#: [id number] Acct: [id number] Name: MONISHA COHN Rep #:[id number] 4 : 1940 82 From: Darline Lundy [...] skin hue, Obesity who presents to the [facility] ED on 02/01/23 with history of [...] - Active Staff] - 02/18/23 Alexandra Arreguin BEHAVIORAL HEALTH TECH, BEHAVIORAL HEALTH TECH-C [Primary Care Provider] - Disposition Disposition (needs filled in before D/C Order can be placed): Intermediate Facility (1) Closed hip fracture Qualifiers: Encounter type: initial encounter Laterality: left Qualified Code(s): S72.002A - Fracture of unspecified part of neck of left femur, initial encounterfor closed fracture 02/06/23 1233 <Electronically signed by Darline Lundy MD> Cosigner Signature (if applicable): CC: BEHAVIORAL HEALTH TECH-C Alexandra Arreguin; Dr. Jasmin Steele MD; Dr. Davian Grier DO ~ ADDENDUM by Dr. Darline Lundy MD on 02/06/23 at 1409 Addendum COREG STOPPED D/T BP STILL BEING ON LOW SIDE, PT ASYMPTOMATIC HOWEVER, NO OTHER CHANGES MADE 02/06/23 1409 <Electronically signed by Darline Lundy MD> cc: BEHAVIORAL HEALTH TECH-Mariajose Arreguin; Dr. Jasmin Steele MD; Dr. Davian Grier DO ~* Signed [facility] Work Phone: 1(655) 185-799810-27-2023 Discharge summary Author Darline Lundy [facility] February 06, 2023 2:09pm Note Date/Time February 06, 2023 1 2:35pm [facility] Medical Records Department [address] [place], [place] [address] [address] Discharge Summary 02/06/23 1234 MR#: [id number] Acct: [id number] Name: MONISHA COHN Rep #:[id number] 8 : 1940 82 From: Darline Lundy MD PCP: JACQUI Ann Status:ADM IN [place] [facility] [id number] Providers Date of Admission: 02/01/23 Date of [...] skin hue, Obesity who presents to the [facility] ED on 02/01/23 with history of [...] skin hue, Obesity who presents to the [facility] ED on 02/01/23 with history of [...] % (Auto) 55.6, Lymph % (Auto) 30.5, [place] % (Auto) 10.2 H, Eos % (Auto) [...] Active Staff] - 02/18/23 Alexandra Arreguin NP, BEHAVIORAL HEALTH TECH-C [Primary Care Provider] - Disposition Disposition (needs filled in before D/C Order can be placed): Intermediate Facility Charges/Coding Visit Charges Inpatient E&M: 94889 Disch Hosp >30min 02/06/23 1235 <Electronically signed [...] Arreguin; Dr. Darline Lundy MD ~* Signed [facility] Work Phone: 1(146) 445-576810-26-2023 Progress note Author Darline Lundy [facility] February 05, 2023 5:07pm Note Date/Time February 05, 2023 4 :55pm [facility] Medical Records Department [address] [place] [address] [place] [address] Progress Note - Hospitalist 02/05/23 1651 MR#: [id number] Acct: [id number] Name: MONISHA COHN Rep #:[id number] 6 : 1940 82 From: Darline Lundy MD PCP: Alexandra Arreguin, BEHAVIORAL HEALTH TECH-C Status:ADM IN Location: [facility] [id number] Reason for Visit Reason for Visit: Diagnoses [...] (Auto) 67.7, Lymph % (Auto) 18.8 L, [place] % (Auto) 11.3 H, Eos % (Auto) [...] documentation, 26minutes Charges/Coding Visit Charges Inpatient E&M: 66034 Subs Hosp L1 02/05/23 1707 <Electronically signed by Darline Lundy MD> Cosigner Signature (if applicable): CC: ~ Signed [facility] Work Phone: 1(225) 160-158510-25-2023 Progress note Author Darline Lundy [facility] February 04, 2023 8:56am Note Date/Time February 04, 2023 7 :12am [facility] Medical Records Department [address] [place] [address] Progress Note - Hospitalist 02/04/23 0710 MR#: [id number] Acct: [id number] Name: MONISHA COHN Rep #:[id number] 6 : 1940 82 From: Darline Lundy MD PCP: Alexandra Arreguin, BEHAVIORAL HEALTH TECH-C Status:ADM IN Location: MS3 [id number] Reason for Visit Reason for Visit: Diagnoses [...] 70.8 H, Lymph % (Auto) 15.0 L, [place] % (Auto) 12.4 H, Eos % (Auto) [...] documentation, 40minutes Charges/Coding Visit Charges Inpatient E&M: 92519 Subs Hosp L2 02/04/23 0856 <Electronically signed by Darline Lundy MD> Cosigner Signature (if applicable): CC: ~ Signed [facility] Work Phone: 1(602) 297-502610-24-2023 Progress note Author Darline Lundy [facility] February 03, 2023 10:04am Note Date/Time February 03, 2023 7 :22am [facility] Medical Records Department [address] [place] [address] Progress Note - Hospitalist 02/03/23 0717 MR#: [id number] Acct: [id number] Name: MONISHA COHN Rep #:[id number] 2 : 1940 82 From: Darline Lundy MD PCP: JACQUI Ann Status:ADM IN [facility] Reason for Visit Reason for Visit: Diagnoses [...] 71.1 H, Lymph % (Auto) 14.6 L, [place] % (Auto) 13.2 H, Eos % (Auto) [...] documentation, 40minutes Charges/Coding Visit Charges Inpatient E&M: 51334 Subs Hosp L2 02/03/23 1004 <Electronically signed by Darline Lundy MD> Cosigner Signature (if applicable): CC: ~ Signed [facility] Work Phone: 1(268) 865-655310-24-2023 Progress note Author Jaylon Boone [facility] February 03, 2023 7:05am Note Date/Time February 03, 2023 7 :05am [facility] Medical Records Department [facility] [place] [address] Progress Note - Hospitalist 02/03/23 07 MR#: [id number] Acct: [id number] Name: MONISHA COHN Rep #:[id number] 4 : 1940 82 From: Jaylon Fontana PCP: JACQUI Ann Status:ADM IN Location: [place] [address] Hospitalist Note Since hemoglobin dropped from 9.1-5.6 after surgery. Most likely acute blood loss after surgery, postop anemia. Units PRBC type and crossmatch and transfuseslowly. Patient had a STEMI in December 2021. Aspirin hold. Plavix currentlydiscontinued but informed the attending and might resume when bleeding is stable. 02/03/23704 <Electronically signed by Jaylon Boone MD> Cosigner Signature (if applicable): CC: ~ Signed [facility] Work Phone: 1(160) 881-713410-24-2023 Progress note Author Davian Grier [facility] February 03, 2023 6:03am Note Date/Time February 03, 2023 6 :03am [facility] Medical Records Department [address] [place] [address] Progress Note - Orthopedic 02/03/23 0601 MR#: [id number] Acct: [id number] Name: MONISHA COHN Rep #:[id number] 1 : 1940 82 From: Davian beasley DO PCP: JACQUI Ann Status:ADM IN Location: [place] [address] Subjective Subjective Patient seen and examined. Pain [...] % (Auto) 62.1, Lymph % (Auto) 25.2, [place]% (Auto) 11.7 H, Eos % (Auto) 0.3, [...] Cosigner Signature (if applicable): CC: ~ Signed [facility] Work Phone: 1(271) 696-215910-24-2023 Discharge summary Author Law Gold [facility] February 03, 2023 12:29am Note Date/Time February 01, 2023 2 :21pm [facility] Medical Records Department [address] [place] [address] Emergency Department Summary 02/01/23 MR#: [id number] Acct: [id number] Name: MONISHA COHN Rep #:[id number] 7 : 1940 82 From: Niko OSMAN PCP: Alexandra Arreguin, BEHAVIORAL HEALTH TECH-C Status:ADM IN Location: [facility]3 [id number] [facility] <JACQUI Cano - Last Filed: 02/01/23 15:12> History of Present Illness Chief Complaint: Fall Narrative Narrative: Patient is a 82-year-old female with history of Parkinson disease, CAD, DC who presents to the emergency department after [...] does live with her and her daughter [facility] <JACQUI Cano - Last Filed: 02/01/23 15:12> [facility] Medical History Atherosclerotic heart disease of saxman coronary artery without angina pectoris Bladder spasms [...] Oxygen Delivery Method Room Air Room Air [facility] <JACQUI Cano - Last Filed: 02/01/23 15:12> [facility] Lab Data Labs: Laboratory Results - last 24 hr 02/01/23 14:05 WBC 4.8 RBC 3.93 L Hgb 10.8 L Hct 35.2 L MCV 89.6 MCH 27.5 MCHC 30.7 L RDW Std Deviation 41.8 RDW Coeff of Aleena 12.6 Plt Count 255 MPV 8.7 Immature Gran % (Auto) 0.200 Neut % (Auto) 60.2 Lymph % (Auto) 28.0 [place] % (Auto) 8.9 Eos % (Auto) 1.7 [...] 14:52 EDT Reading Location ID and State: 7111 / [employer] , Service support , Chest X-Ray 02/01/23 14:00 IMPRESSION: Normal x-ray examination of the chest. Electronically Signed: Chun Martinez MD at 14:53 EDT , Femur X-Ray 02/01/23 14:00 IMPRESSION: Acute distracted fracture of the intertrochanteric left femur. Electronically Signed: Chun Martinez MD at 14:55 EDT Reading Location ID and State: 5247 / [employer] , Service support , Pelvis X-Ray 02/01/23 14:00 IMPRESSION: Acute distracted fracture of the intertrochanteric left femur. Electronically Signed: Chun Martinez MD at 14:54 EDT Reading Location ID and State: 1407 / [employer] , Service support , Elbow X-Ray 02/01/23 15:12 IMPRESSION: Normal x-ray examination of the elbow. Electronically Signed: Chun Martinez MD at 15:29 EDT Reading Location ID and State: 1447 / [employer] , Service support , EKG EKG shows a normal sinus rhythm: Attestation: I personally reviewed and interpreted this EKG as follows: Comments: Normal sinus rhythm, rate of 71 bpm, MO 150 ms, QRS duration 68 ms. No [...] Gold, DO - Last Filed: 02/01/23 15:58> [facility] Narrative Medical decision making narrative: [...] % (Auto) 60.2 Lymph % (Auto) 28.0 [place] % (Auto) 8.9 Eos % (Auto) 1.7 [...] 14:52 EDT Reading Location ID and State: [employer] , Service support , Chest X-Ray 02/01/23 14:00 IMPRESSION: Normal x-ray examination of the chest. Electronically Signed: Chun Martinez MD at 14:53 EDT Reading Location ID and State: [employer] , Service support , Femur X-Ray 02/01/23 14:00 IMPRESSION: Acute distracted fracture of the intertrochanteric left femur. Electronically Signed: Chun Martinez MD at 14:55 EDT Reading Location ID and State: [employer] , Service support , Pelvis X-Ray 02/01/23 14:00 IMPRESSION: Acute distracted fracture of the intertrochanteric left femur. Electronically Signed: Chun Martinez MD at 14:54 EDT Reading Location ID and State: [employer] , Service support , Elbow X-Ray 02/01/23 15:12 IMPRESSION: Normal x-ray examination of the elbow. Electronically Signed: Chun Martinez MD at 15:29 EDT Reading Location ID and State: [employer] , Service support , Discharge Plan [...] your Primary Care Provider. Call [facility] ([phone]) or report to the closest Emergency Room. Call 911 if necessary. 02/02/232110 <Electronically signed by Niko LANDAC> Cosigner Signature (if applicable): 02/03/23 0029 <Electronically signed by Law Gold DO> CC: BEHAVIORAL HEALTH TECH-C Alexandra Arreguin ~ Signed [facility] Work Phone: 1(258) 101-488710-23-2023 Procedure [facility] 02-02-2023 Progress note Author Darline Lundy [facility] February 02, 2023 10:59am Note Date/Time February 02, 2023 7 :44am [facility] Medical Records Department [address] [place] [address] Progress Note - Hospitalist 02/02/23 0739 MR#: [id number] Acct: [id number] Name: MONISHA COHN Rep #:[id number] 1 : 1940 82 From: Darline Lundy MD PCP: JACQUI Ann Status:ADM IN Location: [place] [address] Reason for Visit Reason for Visit: Diagnoses [...] % (Auto) 60.2, Lymph % (Auto) 28.0, [place]% (Auto) 8.9, Eos % (Auto) 1.7, Baso [...] % (Auto) 62.1, Lymph % (Auto) 25.2, [place]% (Auto) 11.7 H, Eos % (Auto) 0.3, [...] 14:52 EDT Reading Location ID and State: [employer] , Service support , Chest X-Ray 02/01/23 14:00 IMPRESSION: Normal x-ray examination of the chest. Electronically Signed: Chun Martinez MD at 14:53 EDT Reading Location ID and State: [employer] , Service support , Femur X-Ray 02/01/23 14:00 IMPRESSION: Acute distracted fracture of the intertrochanteric left femur. Electronically Signed: Chun Martinez MD at 14:55 EDT Reading Location ID and State: [employer] , Service support , Pelvis X-Ray [...] documentation, 36minutes Charges/Coding Visit Charges Inpatient E&M: 51599 Subs Hosp L2 02/02/23 1059 <Electronically signed by Darline Lundy MD> Cosigner Signature (if applicable): CC: ~ Signed [facility] Work Phone: 1(833) 342-684710-22-2023 Progress note Author [facility] Paolo [facility] February 01, 2023 9:42pm Note Date/Time February 01, 2023 9 :42pm [facility] Medical Records Department [address] [facility] [place] [address] Progress Note - Hospitalist 02/01/232141 MR#: [id number] Acct: [id number] Name: MONISHA COHN Rep #:[id number] 1 : 1940 82 From: Jaylon Fontana PCP: Alexandra Arreguin BEHAVIORAL HEALTH TECH-C Status:ADM IN Location: [facility] [id number] Hospitalist Note As per the nurse, patient changed her mind from DNRCC arrest to full code. She wants to be full code. CODE STATUS changed to full code. 02/01/232141 <Electronically signed by Jaylon Boone MD> Cosigner Signature (if applicable): CC: ~ Signed [facility] Work Phone: 1(987) 534-290610-22-2023 Consult note Author Davian Grier [facility] February 01, 2023 7:27pm Note Date/Time February 01, 2023 7 :27pm [facility] Medical Records Department [address] [facility] [place] [address] Consultation - Orthopedics 02/01/231921 MR#: [id number] Acct: [id number] Name: MONISHA COHN Rep #:[id number] 3 : 1940 82 From: Davian beasley DO PCP: SYEDA AnnC Status:ADM IN Location: MS3 [id number] HPI Consult Data Date of Consult: 02/01/23 HPI Narrative Reason for Consultation: Left hip fracture HPI Narrative: MONISHA COHN, is a 82 F who presents to [facility] emergency department after a mechanical fall from [...] in the past. Denies history of [facility]. [facility] Medical History (Updated 02/01/23 @ 19:[address] Davian Grier, ) Atherosclerotic heart disease of saxman coronary artery without angina pectoris Bladder spasms [...] % (Auto) 60.2, Lymph % (Auto) 28.0, [place]% (Auto) 8.9, Eos % (Auto) 1.7, Baso [...] 14:52 EDT Reading Location ID and State: [employer] Tel , Service support , Chest X-Ray 02/01/23 14:00 IMPRESSION: Normal x-ray examination of the chest. Electronically Signed: Chun Martinez MD at 14:53 EDT Reading Location ID and State: [employer] Tel , Service support , Femur X-Ray 02/01/23 14:00 IMPRESSION: Acute distracted fracture of the intertrochanteric left femur. Electronically Signed: Chun Martinez MD at 14:55 EDT Reading Location ID and State: [employer] Tel , Service support , Pelvis X-Ray 02/01/23 14:00 IMPRESSION: Acute distracted fracture of the intertrochanteric left femur. Electronically Signed: Chun Martinez MD at 14:54 EDT Reading Location ID and State: [employer] Tel , Service support , Elbow X-Ray [...] JACQUI Arreguin; Dr. Davian Grier DO~ Signed [facility] Work Phone: 1(288) 669-705410-22-2023 History and physical note Author Jasmin Steele [facility] February 01, 2023 4:28pm Note Date/Time February 01, 2023 3 :26pm [facility] Medical Records Department [address] [place] [address] H&P Exam - Hospitalist 02/01/23 1526 MR#: [id number] Acct: [id number] Name: MONISHA COHN Rep #:[id number] : 1940 82 From: Jasmin Steele MD PCP: SYEDA AnnC Status:ADM IN Location: MS3 [id number] HPI - General General Date of Admission: 02/01/23 Date of Service: 02/01/23 Chief Complaint: Fall, L hip pain. HPI Narrative The patient is an 82 y/o F w/ PMHx: CAD s/p PCI, HTN, HLD, COPD, Parkinson's disease, Chronic urgency/bladder spasms following with Urology, Gout, Fibromyalgia, Hx usage silver water with chronically silver skin hue, Obesity who presents to the [facility] ED on 02/01/23 with history of [...] She notes she is able to tolerate [place] and per daughter Dilaudid low-dose. In the ED she was administered Zofran 4 mg IV x2 and morphine 4 mg IV x2 and did not have a significant reaction thus far but discussed and if any concerns arise or hives would administer medications as needed. [facility] Medical History (Updated 02/01/23 @ 16:[address] Jasmin Steele MD) Atherosclerotic heart disease of saxman coronary artery without angina pectoris Bladder spasms [...] % (Auto) 60.2, Lymph % (Auto) 28.0, [place]% (Auto) 8.9, Eos % (Auto) 1.7, Baso [...] 14:52 EDT Reading Location ID and State: [employer] , Service support , Chest X-Ray 02/01/23 14:00 IMPRESSION: Normal x-ray examination of the chest. Electronically Signed: Chun Martinez MD at 14:53 EDT Reading Location ID and State: [employer] Tel , Service support , Femur X-Ray 02/01/23 14:00 IMPRESSION: Acute distracted fracture of the intertrochanteric left femur. Electronically Signed: Chun Martinez MD at 14:55 EDT Reading Location ID and State: [employer] , Service support , Pelvis X-Ray 02/01/23 14:00 IMPRESSION: Acute distracted fracture of the intertrochanteric left femur. Electronically Signed: Chun Martinez MD at 14:54 EDT Reading Location ID and State: [employer] , Service support , Assessment & Plan Assessment/Plan (1) Closed hip fracture: PLAN: Plan The patient is an 82 y/o F w/ PMHx: CAD s/p PCI, HTN, HLD, COPD, Parkinson's disease, Chronic urgency/bladder spasms following with Urology, Gout, Fibromyalgia, Hx usage silver water with chronically silver skin hue, Obesity who presents to the [facility] ED on 02/01/23 with history of [...] 16 minutes. Charges/Coding Visit Charges Inpatient E&M: 17320 Init Hosp L3 Procedures Hospitalists Procedures: 82331 Advncd Care Plan 30 Min 02/01/23 1628 <Electronically signed by Jasmin Steele MD> Cosigner Signature (if applicable): CC: JACQUI Arreguin; Dr. Jasmin Steele MD~ Signed [facility] Work Phone: 1(954) 204-714810-10-2023 Instructions* Patient Instructions* Em Flynn APRN.CASE PACKER - 01/20/2023 3:48 PM EDT It was [...] points or more) please discuss with your vegetables cook. Date/Time BP Sitting Heart Rate Sitting BP [...] or you can send a message through [employer]. You can also now schedule and select appointments through [employer]. Em Flynn APRN.RUPALI documented in this encounterMarion Hospital10-10-2023 History of Present illness Narrative* Em Flynn APRN.CNP - 01/20/2023 3:00 PM EDT [facility] - FOLLOW UP EVALUATION Alexandra Arreguin APRN.CNP [address] [phone] Dear Alexandra Arreguin APRN.CNP: I had the [...] exercising and going to physical therapy at [facility] and this is going well so she feels she is doing good. They are thinking about moving back to [place] as other than the above, they are [...] them. These started before she moved to [place] and after shehad her heart attack while [...] to wait until she moves back to [place]. Palliative services: Therapy and Exercise: Last PT [...] c) the amplitude decrements startingafter the 1st lpxu-mwi-qxmhs sequence. Hand Movements Left 2-Mild. a) 3 [...] been experiencing hallucinations since she moved to [place], but she was embarrassed so she said [...] and to have informationwhen discussing with her vegetables cook. She also believes she has only been taking one of the two blood pressure medications prescribed (we called her vegetables cook office and verified that she is supposed [...] points or more) please discuss with your vegetables cook. Date/Time BP Sitting Heart Rate Sitting BP [...] Duloxetine 20mg 2 Level of service : 66949 (40-54 min). Time spent 50 min on the day of service, which included preparing to see the patient, ulcx-zn-vnoz patient care, completing clinical documentation, obtaining and/or reviewing separately obtained history, performing a medically appropriate examination, counseling and educating the patient/family/caregiver, and ordering medications, tests, or procedures. Em Flynn APRN.CASE PACKER documented in this encounterMarion Hospital06-29-2023 Miscellaneous Notes* Addendum Note - Linden Flynn MD - 10/09/2022 1:32 PM EDTAddended by: LINDEN FLYNN on: 10/09/2022 01:32 PM Modules accepted: Orders documented in this encounterMarion Hospital06-29-2023 Instructions* Patient Instructions* Linden Flynn MD [...] or you can send a message through [employer]. You can also now schedule and select appointments through [employer]. Linden Flynn MD documented in this encounterMarion Hospital06-29-2023 History of Present illness Narrative* Linden [...] she used to. She moved here from [place]. She is blue from taking silver water [...] Achilles 2+ 2+ Plantar Downgoing Downgoing Coordination Fbmtdk-ju-flxb, rapid alternating movements and cpey-kq-zcap normal bilaterally without dysmetria. Gait Casual gait [...] c) the amplitude decrements startingafter the 1st oeba-hlb-frzrg sequence. Hand Movements Left 3-Moderate. a) more than 5 interruptions during the movement or at least one longer arrest (freeze) in ongoing movement, b) moderate slowing, c) the amplitude decrements starting after the 1st qudm-sba-rojan sequence. Arm Movements Right 2-Mild. a) 3 [...] Sincerely, Linden Flynn MD documented in this encounterMarion HospitalDischarge summary [facility] Department [address] [place] [address] Discharge Summary 01/25/25 1449 MR#: [id number] Acct: [id number] Name: MONISHA COHN Rep #:[id number] : 1940 84 From: Davian interiano MD PCP: Tressa Rosales Status:DIS IN Location: [facility] [id number] Providers Date of Admission: 01/20/25 Primary Care [...] and pulmonary hypertension, CAD; withRCA stent at [facility] in [place] (2009) and subsequent inferior wall ST elevation DC s/p RCA stent with cardiogenic shock and [...] recently diagnosed COVID-19 who was transferred from [facility] she was diagnosed with an impacted Right [...] LOC with her fall. Dr. North of [facility] spoke to Dr. Tijerina of the [...] risks and benefits of going to the [facility] and would like to go today. Hemoglobin [...] Intermediate Facility Charges/Coding Visit Charges Inpatient E&M: 90727 Disch Hosp >30min 01/25/25 145 Cosigner Signature (if applicable): CC: Dr. Davian Kelly MD; Tressa Rosales~ [facility] Davian [facility] Note Date/Time January 25, 2025 2 :52pm [facility] Medical Records Department [address] [place] [id number] Discharge Summary 01/25/25 1449 MR#: [id number] Acct: [id number] Name: MONISHA COHN Rep #:[id number] : 1940 84 From: Davian interiano MD PCP: Tressa Rosales Status:DIS IN Location: [facility] [id number] Providers Date of Admission: 01/20/25 Primary Care [...] and pulmonary hypertension, CAD; withRCA stent at [facility] in [place] (2009) and subsequent inferior wall ST elevation DC s/p RCA stent with cardiogenic shock and [...] recently diagnosed COVID-19 who was transferred from [facility] after she was diagnosed with an [...] LOC with her fall. Dr. [facility] of [facility] spoke to Dr. Tijerina of the [...] risks and benefits of going to the [facility] and would like to go today. Hemoglobin [...] Intermediate Facility Charges/Coding Visit Charges Inpatient E&M: 93351 Disch Hosp >30min 01/25/25 1452 <Electronically signed by Davian Kelly MD> Cosigner Signature (if applicable): CC: Dr. Davian Kelly MD; Tressa Rosales~ Signed [facility] Work Phone: Evaluation note* Diagnosis Onset Date Resolution Status Bladder spasms acute Edema, lower extremity acute Gout acute Hyperlipidemia acute Urgency of urination acute [facility] Work Phone: Evaluation note* Diagnosis Parkinson's disease (HCC)- Primary Paralysis agitans Argyria of skin, accidental or unintentional, sequela Depression, unspecified depression type documented in this encounter [facility]* Diagnosis Parkinson's disease without dyskinesia or fluctuating manifestations- Primary Hallucinations Orthostatic hypotension Insomnia, unspecified type documented in this encounter [facility] note* Diagnosis Onset Date Resolution Status CAD (coronary artery disease) chronic Essential (primary) hypertension chronic Hyperlipidemia chronic Non-rheumatic mitral regurgitation chronic Parkinsons disease chronic CHI (closed head injury) acu te Closed hip fracture acute Fall acute History of Parkinson's disease acute [facility] Work Phone: Evaluation note* Diagnosis Onset Date Resolution Status Closed hip fracture acute History of Parkinson's disease acute [facility] Work Phone: Evaluation note* Diagnosis Parkinson's disease without dyskinesia or fluctuating manifestations (HCC)- Primary Orthostatic hypotension Dysphagia, unspecified type Left arm pain Pain in limb Numbness and tingling in left arm Disturbance of skin sensation documented in this encounter [facility]* Diagnosis Protrusion of cervical intervertebral disc- Primary documented in this encounter [facility]* Diagnosis Acute pain of left shoulder- Primary Protrusion of cervical intervertebral disc Pain in left elbow Pain in joint, upper arm documented in this encounter [facility]* Diagnosis Chronic left shoulder pain- Primary Pain in joint, shoulder region documented in this encounter [facility]* Diagnosis Parkinson's disease without dyskinesia or fluctuating manifestations (HCC)- Primary Orthostatic hypotension Hallucinations Dysphagia, unspecified type documented in this encounter [facility]* Diagnosis Acute pain of left shoulder [facility] Diagnosis Chronic left shoulder pain Pain in joint, shoulder region [facility]* Diagnosis Dysphagia, unspecified type- Primary Parkinson's disease without dyskinesia or fluctuating manifestations (HCC) Orthostatic hypotension documented in this encounter [facility]* Diagnosis Dysphagia, unspecified type- Primary Parkinson's disease with dyskinesia without fluctuating manifestations (HCC) Numbness and tingling of both feet Hallucinations documented in this encounter [facility]* Diagnosis Numbness and tingling of both feet documented in this encounter [facility]* Diagnosis Onset Date Resolution Status Admit Date 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 CAD (coronary artery disease) chroni c September 27, 2024 10:37am Essential (primary) hypertension chr onic September 27, 2024 10:37am Hyperlipidemia chronic September 27, 2024 10:37am Non-rheumatic mitral regurgitation chronic September 27, 2024 10:37am Parkinsons disease chronic September 112024 10:37am [facility] Work Phone: Reason for referral (narrative)* Diagnostic Procedure Only (Routine) - Pending Review Specialty Diagnoses / Procedures Referred By Contac t Referred To Contact XR IMAGING Diagnoses Chronic left shoulder pain Procedures XR SHOULDER GENERAL 3V OR MORE AP/TRUE AP/OTHER LEFT RADEX SHOULDER COMPLETE MINIMUM 2 VIEWS Claudia Manuel PA-C [address] [place] [address] [place] [address] Referral ID Status Reason Start Date Expiration Date Visits Requested Visits Authorized [id number] Pending Review Auto-Generat ed Referral 09/15/2023 10/13/2024 1 1 [facility] for referral (narrative)* Diagnostic Procedure Only (Routine) - Closed Specialty Diagnoses / Procedures Referred By Contac t Referred To Contact XR IMAGING Diagnoses Chronic left shoulder pain Procedures XR SHOULDER GENERAL 3V OR MORE AP/TRUE AP/OTHER LEFT RADEX SHOULDER COMPLETE MINIMUM 2 VIEWS Claudia Manuel PA-C [address] [place] [address] [place] [address] Referral ID Status Reason Start Date Expiration Date V isits Requested Visits Authorized [id number] Closed Auto-Generate d Referral 09/15/2023 10/13/2024 1 1 [facility] for referral (narrative)No reason for referral information availableWLake County [facility] Work Phone: Rekjso for visit Narrative* Diagnostic Procedure Only (Routine) - Closed Specialty Diagnoses / Procedures Referred By Contac t Referred To Contact XR IMAGING Diagnoses Chronic left shoulder pain Procedures XR SHOULDER GENERAL 3V OR MORE AP/TRUE AP/OTHER LEFT RADEX SHOULDER COMPLETE MINIMUM 2 VIEWS Claudia Manuel PA-C [address] [place] [address] [place] [address] Referral ID Status Reason Start Date Expiration Date V isits Requested Visits Authorized [id number] Closed Auto-Generate d Referral 09/15/2023 10/13/2024 1 1 [facility] Chief Complaint and Reason for Visit [...] December 28, 2024 12:46pm Essential (primary) hypertension [facility] 2024 12:46pm Parkinsons disease December 28, [...] December 28, 2024 12:46pm Essential (primary) hypertension [facility] 2024 12:46pm Parkinsons disease December 28, [...] Procedures PROVIDER ORDERED FOLLOW UP OFFICE/OUTPATIENT [facility] MDM 60-74 MINUTES Linden Flynn MD [address] [place] [address] Referral ID Status Reason Start Date Expiration Date Visits Requested Visits Authorized [id number] Pending Review PCP Requested Referral 10/09/2022 01/07/2023 1 1 Specialty Diagnoses / Procedures Referred By Arely t Referred To Contact [facility] Diagnoses Parkinson's disease (HCC) Procedures CONSULT TO MEAT CLERK OCCUPATIONAL THERAPY EVAL HIGH COMPLEX 60 MINS Linden Flynn MD [address] [place] [address] [facility] [address] [address] Referral ID Status Reason Start Date Expiration Date Visits Requested Visits Authorized [id number] Pending Review Auto-Generat ed Referral 10/09/2022 10/09/2023 1 1 Specialty Diagnoses / Procedures Referred By Arely t Referred To Contact [facility] Diagnoses Parkinson's disease (HCC) Procedures CONSULT TO PHYSICAL THERAPY PHYSICAL THERAPY EVALUATION HIGH COMPLEX 45 MINS Linden Flynn MD [address] [place] [address] [facility] [address] [address] Referral ID Status Reason Start Date Expiration Date Visits Requested Visits Authorized [id number] Pending Review Auto-Generat ed Referral 10/09/2022 10/09/2023 1 1 Specialty Diagnoses / Procedures Referred By Contac t Referred To Contact MR IMAGING Diagnoses Spinal stenosis of cervical region Procedures MRI CERVICAL SPINE WO IVCON MRI SPINAL CANAL CERVICAL W/O CONTRAST MATRL Em Flynn, SYSTEM PROGRAMMER.CASE PACKER [address] [place] [phone] Mr Imaging [place] [address] Referral ID Status Reason Start Date Expiration Date Visits Requested Visits Authorized [id number] Authorized Auto-Generat ed Referral 07/06/2023 08/04/2024 1 1 Referral ID Status Reason Start Date Expiration Date V isits Requested Visits Authorized [id number] Closed Auto-Generate d Referral 07/06/2023 08/04/2024 1 1 Specialty Diagnoses / Procedures Referred By Contac t Referred To Contact [facility] [place] Diagnoses Protrusion of cervical intervertebral disc Procedures CONSULT TO [facility] OFFICE/OUTPATIENT [facility] 60 MINUTES Em Flynn, SYSTEM PROGRAMMER.CASE PACKER [address] [place] [phone] Referral ID Status Reason Start Date Expiration Date Visits Requested Visits Authorized [id number] Authorized PCP Requested Referral 08/03/2023 08/02/2024 1 1 Specialty Diagnoses / Procedures Referred By Contac t Referred To Contact Orthopedics Diagnoses Acute pain of left shoulder Pain in left elbow Procedures CONSULT TO ORTHOPAEDICS OFFICE/OUTPATIENT [facility] 60 MINUTES Stephan Sheehan PA-C [address] [phone] Referral ID Status Reason Start Date Expiration Date Visits Requested Visits Authorized [id number] Authorized PCP Requested Referral 08/27/2023 08/26/2024 1 1 Specialty Diagnoses / Procedures Referred By Contac t Referred To Contact [facility] Diagnoses Protrusion of cervical intervertebral disc Acute pain of left shoulder Pain in left elbow Procedures CONSULT TO PHYSICAL THERAPY PHYSICAL THERAPY EVALUATION HIGH COMPLEX 45 MINS Stephan Sheehan PA-C [address] [phone] [facility] [place] [address] [place] [address] Referral ID Status Reason Start Date Expiration Date Visits Requested Visits Authorized [id number] Pending Review Auto-Generat ed Referral 08/27/2023 08/26/2024 1 1 Specialty Diagnoses / Procedures Referred By Contac t Referred To Contact Diagnoses Parkinson's disease without dyskinesia or fluctuating manifestations (HCC) Procedures PROVIDER ORDERED FOLLOW UP OFFICE/OUTPATIENT NEW [facility] MDM 60 MINUTES Em Flynn, SYSTEM PROGRAMMER.CASE PACKER [address] [address] Referral ID Status Reason Start Date Expiration Date Visits Requested Visits Authorized [id number] Authorized PCP Requested Referral 12/30/2023 09/28/2024 1 1 Specialty Diagnoses / Procedures Referred By Contac t Referred To Contact [facility] Diagnoses Parkinson's disease without dyskinesia or fluctuating manifestations (HCC) Procedures CONSULT TO PHYSICAL THERAPY PHYSICAL THERAPY EVALUATION HIGH COMPLEX 45 MINS Em Flynn, PAT.CASE PACKER [address] [address] [facility] [address] [place] [address] Referral ID Status Reason Start Date Expiration Date Visits Requested Visits Authorized [id number] Pending Review Auto-Generat ed Referral 09/29/2023 09/28/2024 1 1 Specialty Diagnoses / Procedures Referred By Contac t Referred To Contact [facility] Diagnoses Acute pain of left shoulder Procedures CONSULT TO PHYSICAL THERAPY PHYSICAL THERAPY EVALUATION HIGH COMPLEX 45 MINS Claudia Manuel PA-C [address] [place] [address] [facility] [address] [place] [address] Referral ID Status Reason Start Date Expiration Date Visits Requested Visits Authorized [id number] Pending Review Auto-Generat ed Referral 10/02/2023 10/01/2024 1 1 Referral ID Status Reason Start Date Expiration Date Visits Requested Visits Authorized [id number] Authorized PCP Requested Referral 12/30/2024 1 1 Specialty Diagnoses / Procedures Referred By Contac t Referred To Contact [facility] Diagnoses Parkinson's disease without dyskinesia or fluctuating manifestations (HCC) Dysphagia, unspecified type Procedures CONSULT TO SPEECH THERAPY OFFICE/OUTPATIENT [facility] 60 MINUTES Em Flynn APRN.CASE PACKER [address] [address] [facility] [place] [address] [place] [address] Referral ID Status Reason Start Date Expiration Date Visits Requested Visits Authorized [id number] Pending Review Auto-Generat ed Referral 12/31/2023 12/30/2024 1 1 Advance Directives No Advanced Directives Records Found Advance Directive Response Recorded Date/ Time Living Will No February 01 1:49pm Power of Associate Pathologist No February 01, 2023 1:49pm Advance Directive Response Recorded Date/ Time Living Will No February 01 4:06pm Power of Associate Pathologist No February 01, 2023 4:06pm Advance Directive Response Recorded Date/ Time Name of Medical Power of Associate Pathologist Palmira, daughter , CHRISTY May 01, 2023 1:29pm Living Will No May 01 1:29pm Power of Associate Pathologist Yes May 01, 2023 1:29pm Advance Directive Response Recorded Date/ Time Do you have a Healthcare Power of Associate Pathologist? Yes January 20, 2025 1:18am Name of Medical Power of Associate Pathologist palmira mayer January 20, 2025 1:18am Summary [...] or prosecute any alcohol or drug abuse patient.[facility] HospitalIn the event this information is protected by the Federal Confidentiality of Alcohol and Drug Abuse Patient Records regulations: The Federal rules restrict any use of the information to criminally investigate or prosecute any alcohol or drug abuse patient.[facility] HospitalIn the event this information is protected by the Federal Confidentiality of Alcohol and Drug Abuse Patient Records regulations: The Federal rules restrict any use of the information to criminally investigate or prosecute any alcohol or drug abuse patient.Mar[facility] HospitalIn the event this information is protected by the Federal Confidentiality of Alcohol and Drug Abuse Patient Records regulations: The Federal rules restrict any use of the information to criminally investigate or prosecute any alcohol or drug abuse patient.Mar[facility] HospitalIn the event this information is protected by the Federal Confidentiality of Alcohol and Drug Abuse Patient Records regulations: The Federal rules restrict any use of the information to criminally investigate or prosecute any alcohol or drug abuse patient.[facility] HospitalIn the event this information is protected by the Federal Confidentiality of Alcohol and Drug Abuse Patient Records regulations: The Federal rules restrict any use of the information to criminally investigate or prosecute any alcohol or drug abuse patient.[facility] HospitalIn the event this information is protected by the Federal Confidentiality of Alcohol and Drug Abuse Patient Records regulations: The Federal rules restrict any use of the information to criminally investigate or prosecute any alcohol or drug abuse patient.[facility] HospitalIn the event this information is protected by the Federal Confidentiality of Alcohol and Drug Abuse Patient Records regulations: The Federal rules restrict any use of the information to criminally investigate or prosecute any alcohol or drug abuse patient.[facility] HospitalIn the event this information is protected by the Federal Confidentiality of Alcohol and Drug Abuse Patient Records regulations: The Federal rules restrict any use of the information to criminally investigate or prosecute any alcohol or drug abuse patient.[facility] HospitalIn the event this information is protected by the Federal Confidentiality of Alcohol and Drug Abuse Patient Records regulations: The Federal rules restrict any use of the information to criminally investigate or prosecute any alcohol or drug abuse patient.[facility] HospitalIn the event this information is protected by the Federal Confidentiality of Alcohol and Drug Abuse Patient Records regulations: The Federal rules restrict any use of the information to criminally investigate or prosecute any alcohol or drug abuse patient.[facility] HospitalIn the event this information is protected by the Federal Confidentiality of Alcohol and Drug Abuse Patient Records regulations: The Federal rules restrict any use of the information to criminally investigate or prosecute any alcohol or drug abuse patient.[facility] HospitalIn the event this information is protected by the Federal Confidentiality of Alcohol and Drug Abuse Patient Records regulations: The Federal rules restrict any use of the information to criminally investigate or prosecute any alcohol or drug abuse patient.[facility] HospitalIn the event this information is protected by the Federal Confidentiality of Alcohol and Drug Abuse Patient Records regulations: The Federal rules restrict any use of the information to criminally investigate or prosecute any alcohol or drug abuse patient.[facility] HospitalIn the event this information is protected by the Federal Confidentiality of Alcohol and Drug Abuse Patient Records regulations: The Federal rules restrict any use of the information to criminally investigate or prosecute any alcohol or drug abuse patient.[facility] HospitalIn the event this information is protected by the Federal Confidentiality of Alcohol and Drug Abuse Patient Records regulations: The Federal rules restrict any use of the information to criminally investigate or prosecute any alcohol or drug abuse patient.[facility] HospitalIn the event this information is protected by the Federal Confidentiality of Alcohol and Drug Abuse Patient Records regulations: The Federal rules restrict any use of the information to criminally investigate or prosecute any alcohol or drug abuse patient.[facility] HospitalIn the event this information is protected by the Federal Confidentiality of Alcohol and Drug Abuse Patient Records regulations: The Federal rules restrict any use of the information to criminally investigate or prosecute any alcohol or drug abuse patient.[facility] HospitalIn the event this information is protected by the Federal Confidentiality of Alcohol and Drug Abuse Patient Records regulations: The Federal rules restrict any use of the information to criminally investigate or prosecute any alcohol or drug abuse patient.[facility] HospitalIn the event this information is protected by the Federal Confidentiality of Alcohol and Drug Abuse Patient Records regulations: The Federal rules restrict any use of the information to criminally investigate or prosecute any alcohol or drug abuse patient.[facility] HospitalIn the event this information is protected by the Federal Confidentiality of Alcohol and Drug Abuse Patient Records regulations: The Federal rules restrict any use of the information to criminally investigate or prosecute any alcohol or drug abuse patient.[facility] HospitalIn the event this information is protected by the Federal Confidentiality of Alcohol and Drug Abuse Patient Records regulations: The Federal rules restrict any use of the information to criminally investigate or prosecute any alcohol or drug abuse patient.[facility] Reason for Visit (unrecogniz ed section and content) Reason Comments New Patient Evaluation Reason Comments Parkinson's Disease Specialty Diagnoses / Procedures Referred By Arely carlson Referred To Contact Diagnoses Parkinson's disease Procedures PROVIDER ORDERED FOLLOW UP OFFICE/OUTPATIENT NEW HIGH MDM 60-74 MINUTES Linden Flynn MD [address] [place] [address] Referral ID Status Reason Start Date Expiration Date V isits Requested Visits Authorized [id number] Closed PCP Requested Referral 10/09/2022 01/07/2023 1 1 Reason Comments Follow Up Pt wants to discuss left arm pain and left groin pain Parkinson's Disease Specialty Diagnoses / Procedures Referred By Arely carlson Referred To Contact MR IMAGING Diagnoses Spinal stenosis of cervical region Procedures MRI CERVICAL SPINE WO IVCON MRI SPINAL CANAL CERVICAL W/O CONTRAST Em Walker APRN.RUPALI [address] [place] [address] [place] [address] Referral ID Status Reason Start Date Expiration Date V isits Requested Visits Authorized [id number] Closed Auto-Generate d Referral 07/06/2023 08/04/2024 1 1 Reason Comments Results Reason Comments Neck Pain Neck pain Left arm p ain. Would like to discuss MRI and X-ray Results. Specialty Diagnoses / Procedures Referred By Contac t Referred To Contact [facility] [place] Diagnoses Protrusion of cervical intervertebral disc Procedures [facility]ULT TO [facility] OFFICE/OUTPATIENT [facility] 60 MINUTES Em Flynn, PAT.CASE PACKER [address] [place] [address] Referral ID Status Reason Start Date Expiration Date V isits Requested Visits Authorized [id number] Closed PCP Requested Referral 08/03/2023 08/02/2024 1 1 Reason Comments Parkinson's Disease Follow Up Reason Comments New Pain Specialty Diagnoses / Procedures Referred By Contac t Referred To Contact Orthopedics Diagnoses Acute pain of left shoulder Pain in left elbow Procedures CONSULT TO ORTHOPAEDICS OFFICE/OUTPATIENT [facility] 60 MINUTES Stephan Sheehan PA-C [address] [place] [address] Referral ID Status Reason Start Date Expiration Date V isits Requested Visits Authorized [id number] Closed PCP Requested Referral 08/27/2023 08/26/2024 1 1 Reason Comments Patient Update 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 Mammogram Reason Comments Parkinson's Disease Specialty Diagnoses / Procedures Referred By Contac t Referred To Contact Diagnoses Parkinson's disease without dyskinesia or fluctuating manifestations (HCC) Procedures PROVIDER ORDERED FOLLOW UP OFFICE/OUTPATIENT [facility] 60 MINUTES Em Flynn, SYSTEM PROGRAMMER.CASE PACKER [address] [place] [id number] Referral ID Status Reason Start Date Expiration Date V isits Requested Visits Authorized [id number] Closed PCP Requested Referral 12/30/2023 09/28/2024 1 1 Reason Comments Parkinson's Disease Specialty Diagnoses / Procedures Referred By Contac t Referred To Contact Diagnoses Parkinson's disease without dyskinesia or fluctuating manifestations (HCC) Procedures PROVIDER ORDERED FOLLOW UP OFFICE/OUTPATIENT [facility] 60 MINUTES Em Flynn, SYSTEM PROGRAMMER.CASE PACKER [address] [place] [address] Phone: tel: fax: Referral ID Status Reason Start Date Expiration Date V isits Requested Visits Authorized [id number] Closed PCP Requested Referral 03/31/2024 12/30/2024 1 1 Reason Comments Neuropathy Specialty Diagnoses / Procedures Referred By Contac t Referred To Contact Neurology Diagnoses Numbness and tingling of both feet Numbness and tingling in both hands Procedures CONSULT TO NEUROLOGY OFFICE/OUTPATIENT [facility] 60 MINUTES Em Flynn, SYSTEM PROGRAMMER.CASE PACKER [address] [place] [address] Phone: tel: fax: Referral ID Status Reason Start Date Expiration Date V isits Requested Visits Authorized [id number] Closed PCP Requested Referral 06/28/2024 06/28/2025 1 1 Care Teams (unrecognized sec tion and content) Team Status: Active Member Role Status Dates Alexandra Arreguin BEHAVIORAL HEALTH TECH, BEHAVIORAL HEALTH TECH-C Primary Care Provider Active Team Status: Active Member Role Status Dates Alexandra Arreguin NP, BEHAVIORAL HEALTH TECH-C Primary Care Provider Active Dr. Law Gold , DO Emergency Provider Active Dr. Jasmin Steele MD Admit Provider, Other Provider Active Dr. Davian Grier , DO Other Provider Active Dr. Darline Lundy MD Attending Provider, Other Provid er Active Team Status: Active Member Role Status Dates Alexandra Arreguin NP, BEHAVIORAL HEALTH TECH-C Primary Care Provider Active Dr. Law Gold , DO Emergency Provider Active Dr. Jasmin Steele MD Admit Provider, Other Provider Active Dr. Darline Lundy MD Other Provider Active Dr. Davian Grier , DO Other Provider Active Dr. Jaylon Boone MD Attending Provider Active Team Status: Active Member Role Status Dates Alexandra Arreguin NP, BEHAVIORAL HEALTH TECH-C Primary Care Provider Active Dr. Law Gold , DO Emergency Provider Active Dr. Jasmin Steele MD Admit Provider, Other Provider Active Dr. Darline Lundy MD Attending Provider, Other Provid er Active Dr. Davian Grier , DO Other Provider Active Team Status: Inactive Member Role Status Dates Alexandra Arreguin NP, BEHAVIORAL HEALTH TECH-C Primary Care Provider Active Dr. Danielle Vernon MD Attending Provider, Referring Pr ovider Active Team Status: Inactive Member Role Status Dates Alexandra Arreguin BEHAVIORAL HEALTH TECH, BEHAVIORAL HEALTH TECH-C Primary Care Provider Active Dr. Law Gold , DO Emergency Provider Active Dr. Jasmin Steele MD Admit Provider, Other Provider Active Dr. Darline Lundy MD Attending Provider Active Dr. Davian Grier , Other Provider Active Team Status: Inactive Member Role Status Dates Alexandra Arreguin BEHAVIORAL HEALTH TECH, BEHAVIORAL HEALTH TECH-C Primary Care Provider Active Dr. Law Gold , DO Emergency Provider Active Journalism Professor Relationship Specialty Start Date End Date Alexandra Arreguin, SYSTEM PROGRAMMER.CASE PACKER [address] [place], [place] [id number] PCP - General Family Medicine 01/20/23 Team Status: Inactive Member Role Status Dates Alexandra Arreguin BEHAVIORAL HEALTH TECH, BEHAVIORAL HEALTH TECH-C Primary Care Provider, Referr ing Provider Active Dr. Danielle Vernon MD Attending Provider Active Team Status: Active Member Role Status Dates Alexandra Arreguin BEHAVIORAL HEALTH TECH, BEHAVIORAL HEALTH TECH-C Primary Care Provider Active Dr. Law Gold , DO Emergency Provider Active Dr. Jasmin Steele MD Admit Provider, Attending Prov ider Active Journalism Professor Relationship Specialty Start Date End Date Alexandra Arreguin, SYSTEM PROGRAMMER.CASE PACKER [address] [place] [address] PCP - General Family Medicine 01/20/23 Journalism Professor Relationship Specialty Start Date End Date Alexandra Arreguin, SYSTEM PROGRAMMER.CASE PACKER [address] [place] [address] PCP - General Family Medicine 01/20/23 Journalism Professor Relationship Specialty Start Date End Date Alexandra Arreguin, SYSTEM PROGRAMMER.CASE PACKER [address] [place], [place] [phone] PCP - General Family Medicine 01/20/23 Journalism Professor Relationship Specialty Start Date End Date Alexandra Arreguin, SYSTEM PROGRAMMER.CASE PACKER [address] [place] [address] PCP - General Family Medicine 01/20/23 Journalism Professor Relationship Specialty Start Date End Date Alexandra Arreguin, SYSTEM PROGRAMMER.CASE PACKER [address] [place], [place] [phone] PCP - General Family Medicine 01/20/23 Journalism Professor Relationship Specialty Start Date End Date Alexandra Arreguin, SYSTEM PROGRAMMER.CASE PACKER [address] [place], [place] [phone] PCP - General Family Medicine 01/20/23 Journalism Professor Relationship Specialty Start Date End Date Alexandra Arreguin, SYSTEM PROGRAMMER.CASE PACKER [address] [facility] [place] [place] [address] PCP - General Family Medicine 01/20/23 Journalism Professor Relationship Specialty Start Date End Date Alexandra Arreguin, SYSTEM PROGRAMMER.CASE PACKER [address] [place] [address] PCP - General Family Medicine 01/20/23 Journalism Professor Relationship Specialty Start Date End Date Alexandra Arreguin, SYSTEM PROGRAMMER.CASE PACKER [address] [place] [address] PCP - General Family Medicine 01/20/23 Journalism Professor Relationship Specialty Start Date End Date Alexandra Arreguin, SYSTEM PROGRAMMER.CASE PACKER [address] [place] [address] PCP - General Family Medicine 01/20/23 Journalism Professor Relationship Specialty Start Date End Date Alexandra Arreguin, SYSTEM PROGRAMMER.CASE PACKER [address] [place], [place] [phone] PCP - General Family Medicine 01/20/23 Journalism Professor Relationship Specialty Start Date End Date Alexandra Arreguin, SYSTEM PROGRAMMER.CASE PACKER [address] [place], [place] [phone] PCP - General Family Medicine 01/20/23 Journalism Professor Relationship Specialty Start Date End Date Alexandra Arreguin, SYSTEM PROGRAMMER.CASE PACKER [address] [place], [place] [phone] PCP - General Family Medicine 01/20/23 Journalism Professor Relationship Specialty Start Date End Date Alexandra Arreguin, SYSTEM PROGRAMMER.CASE PACKER [address] [place], [place] [phone] PCP - General Family Medicine 01/20/23 Journalism Professor Relationship Specialty Start Date End Date Alexandra Arreguin, SYSTEM PROGRAMMER.CASE PACKER [address] [place], [place] [phone] PCP - General Family Medicine 01/20/23 Journalism Professor Relationship Specialty Start Date End Date Alexandra Arreguin, SYSTEM PROGRAMMER.CASE PACKER [address] [place], [place] [phone] PCP - General Family Medicine 01/20/23 Team Status: Active Member Role Status Dates Tressa HALL Primary Care Provider Active Team Status: Inactive Member Role Status Dates Alexandra Arreguin BEHAVIORAL HEALTH TECH, BEHAVIORAL HEALTH TECH-C Primary Care Provider Active Start: March 16, 2024 End: March 16, 2024 Alexandra Arreguin BEHAVIORAL HEALTH TECH, BEHAVIORAL HEALTH TECH-C Referring Provider Active Start: March 16, 2024 End: March 16, 2024 Dr. Danielle Vernon MD Attending Provider Active Start: March 16, 2024 End: March 16, 2024 Team Status: Inactive Member Role Status Dates Didi Lujan BEHAVIORAL HEALTH TECH, BEHAVIORAL HEALTH TECH-C Attending Provider Active Start: June 03, 2024 End: June 03, 2024 Didi Lujan BEHAVIORAL HEALTH TECH, BEHAVIORAL HEALTH TECH-C Referring Provider Active Start: June 03, 2024 End: June 03, 2024 Tressa HALL Primary Care Provider Active Start: June 03, 2024 End: June 03, 2024 Journalism Professor Relationship Specialty Start Date End Date Alexandra Arreguin, PAT.CASE PACKER [address] [facility] [address] [place] [address] PCP - General Family Medicine 01/20/23 Team [...] physician Active Start: November 07, 2024 Dr. aDnielle Vernon MD Attending physician Active Start: November [...] Team Status: Active Member Role/Relationship Status Dates [facility] Bobby ISABEL Primary care physician Active Start: January 20, 2025 Dr. Danielle Vernon MD Attending physician Active Start: January 20, 2025 Dr. Danielle Vernon MD Referring Provider Active Start: January 20, 2025 Team Status: Active Member Role/Relationship Status Dates [facility] Bobby ISABEL Primary care physician Active Start: [...] Team Status: Active Member Role/Relationship Status Dates [facility] Bobby ISABEL Primary care physician Active Start: [...] section and content) DATE CREATED AUTHOR 10/02/2023 [facility] DATE CREATED AUTHOR AUTHOR'S ORGANIZ ATION 12/30/2024 [facility] DATE CREATED AUTHOR AUTHOR'S ORGANIZ ATION 01/22/2025 [facility] DATE CREATED AUTHOR AUTHOR'S ORGANIZ ATION 02/16/2025 [facility] FOR RECORDS PERTAINING TO PATIENTS WHO [...] BE BASED ON THE PRIMARY CLINICAL RECORDS. [facility] [employer] provides no warranty or guarantee of the accuracy or completeness of information in this document.
[2025-03-24 17:29] LABS: Color, Urine Straw (Yellow); Glucose, Dipstick Normal (Normal); Ketone-Dipstick Negative (Negative); Leukocyte Esterase-Dipstick 100 /ul (Negative); Nitrite-Dipstick Positive (Negative); Occult Blood-Urine 10 /ul (Negative); Protein-Dipstick 30 mg/dl (Negative); Specific Gravity, Urine 1.010 (1.002-1.030); Urine Bilirubin Dipstick Negative (Negative)
--- NOTE | 2025-03-24 18:50 | CM.ED ---
Social Work SW met with patient who confirmed plans to return to [facility] when medically ready. Jannie Plascencia, SOFTWARE EDUCATOR, RN CARE MANAGER
[2025-03-24 18:57] LABS: Red Blood Cells-Urine 0-5 SEEN /hpf (0-5); Squamous Epithelial Cells - UA 0-5 SEEN /hpf (5-10)
[2025-03-24] MEDS: 0.9% Normal Saline (1000mL) 1,000 ML 125 ML IV (20:00)
[2025-03-24] MEDS: Hydrocortisone 2.5% Crm 1 APPLIC TOPICAL (20:23)
[2025-03-24] MEDS: 0.9% Saline Lock 10 ML Syringe IV (20:29)
[2025-03-24 21:38] LABS: Vancomycin, Trough Level 15.4 ug/mL (5.0-15.0)
[2025-03-24] MEDS: Vancomycin Trough/Random Due 1 LAB MC (21:55)
[2025-03-24] MEDS: MELATONIN 3 MG TABLET PO (21:55)
[2025-03-24] MEDS: Vancomycin HCl 750 MG in 0.9% Normal Saline (250mL Bag) 250 ML 250 MG IV (21:59)
--- NOTE | 2025-03-24 21:59 | PCM.RX.CS ---
Consult Antibiotic Management Pharmacy has been consulted to manage selected antibiotic: Vancomycin Type of Intervention Type of Consult: New start Labs Labs: Sodium 134 mmol/L (133-145) 03/24/25 14:25 Potassium 4.3 mmol/L (3.3-5.1) 03/24/25 14:25 Chloride 104 mmol/L (98-108) 03/24/25 14:25 Carbon Dioxide 23.5 mmol/L (21.0-32.0) 03/24/25 14:25 Anion Gap 6 (5-15) 03/24/25 14:25 BUN 12 mg/dL (4-19) 03/24/25 14:25 Creatinine 0.50 mg/dL (0.70-1.20) L 03/24/25 14:25 Est GFR (MDRD) Non-Af 93 (>60) 03/24/25 14:25 BUN/Creatinine Ratio 24.5 RATIO (10-20) H 03/24/25 14:25 Glucose 101 mg/dL (70-99) H 03/24/25 14:25 Vancomycin Trough 15.4 ug/mL (5.0-15.0) H 03/24/25 20:44 Dosing Weight Weight used for dosin.6 kg Estimated Creatinine Clearance Estimated Creatinine Clearance: 54 Goal Trough Goal Trough: 15-20 mcg/mL Pharmacy Plan for Drug Dosing Pharmacy Plan for Drug Dosing: Pharmacy Service will continue to monitor and adjust dosing as required. PATIENT ADMITTED ON VANCO 750 MG Q12H. LAST DOSE GIVEN 03/24 @ 0900. TROUGH DRAWN @ 2044 (12 HOURS) 15.4. CONTINUE 750MG Q12H AND DRAW FOLLOW UP TROUGH IN 2 DAYS Follow-Up Labs Follow-Up Labs: Trough: Vancomycin Date/Time Labs Ordered Labs to be done on [date and time ordered]: 03/26 @ 0930
[2025-03-25] VITALS (7 sets, daily range): BP systolic 126–143; BP diastolic 48–66; PULSE 60–85; RESP 16; TEMP 36.6–37; O2SAT 96–100
[2025-03-25] MEDS: 0.9% Normal Saline (1000mL) 1,000 ML 125 ML IV (06:34)
[2025-03-25 06:36] LABS: Hematocrit 27.4 % (37-47); Hemoglobin 8.1 g/dL (12.0-15.0); Immature Granulocytes Count 0.080 X10^3/uL (0.0-0.0); Mean Corp Hgb Conc 29.6 g/dL (32-36); Mean Corpuscular Volume 89.0 fL (81-99); Mean Platelet Vol. 7.8 fl (6.2-12.0); NRBC Flagged by Analyzer 0 % (0-5); Platelet Count 538 K/mm3 (150-450); RBC Distribution Width CV 18.4 % (11.6-14.6); RBC Distribution Width SD 59.0 fl (35.1-43.9); Red Blood Count 3.08 M/mm3 (4.2-5.4); White Blood Count 7.4 K/mm3 (4.4-11.0)
[2025-03-25 07:01] LABS: Anion Gap 8 (5-15); BUN 11 mg/dL (4-19); BUN/Creat Ratio 20.1 RATIO (10-20); Calcium,Total 7.4 mg/dL (7.6-11.0); Carbon Dioxide 21.7 mmol/L (21.0-32.0); Chloride 109 mmol/L (98-108); Estimated Creatinine Clearance 49.31 ml/min (50-250); Glucose 126 mg/dL (70-99); Potassium 4.2 mmol/L (3.3-5.1)
[2025-03-25] MEDS: Aspirin E.C. 81 MG Tablet PO (07:42)
[2025-03-25] MEDS: Cholecalciferol (VIT D3) 25 MCG TABLET (1,000 UNITS) 50 MCG PO (07:42)
[2025-03-25] MEDS: Mineral Oil/Petrolatum Cr 1.75oz Bottle 1 APPLIC TOPICAL (07:43)
--- NOTE | 2025-03-25 08:02 | PN.HOSP_ITS ---
Objective Data Objective Data Vital Signs: Vital Signs Temp Pulse Resp BP Pulse Ox O2 Del Method 98.3 F 80 16 131/57 H 99 Room Air 03/25/25 02:00 03/25/25 07:42 03/25/25 02:00 03/25/25 02:00 03/25/25 02:00 03/25/25 02:00 Oxygen Delivery Method Room Air Weight: 157 lb 6.561 oz Body Mass Index (BMI) 28.8 Intake & Output: Intake and Output for Last 24 Hours 03/23/25 03/24/25 03/25/25 23:59 23:59 23:59 Intake Total 1265 / 1265 1000 / 1000 Output Total 825 / 825 Balance 1265 / 740 175 / 175 Lab / Micro Data 03/25/25 06:01 03/25/25 06:01 Labs: Laboratory Results - last 24 hr 03/24/25 14:25: WBC 7.6, RBC 3.07 L, Hgb 8.2 L, Hct 27.1 L, MCV 88.3, MCH 26.7 L , MCHC 30.3 L, RDW Std Deviation 58.4 H, RDW Coeff of Aleena 18.5 H, Plt Count 511 H, MPV 7.7, Immature Gran % (Auto) 1.700 H, Neut % (Auto) 54.2, Lymph % (Auto) 20.9, [place] % (Auto) 9.5, Eos % (Auto) 13.2 H, Baso % (Auto) 0.5, Absolute Neuts (auto) 4.1, Absolute Lymphs (auto) 1.58, Nucleated RBC % 0, PT 16.7 H, INR 1.3, APTT 38.4 H, Sodium 134, Potassium 4.3, Chloride 104, Carbon Dioxide 23.5, Anion Gap 6, BUN 12, Creatinine 0.50 L, Estim Creat Clear Calc 54.49, Est GFR (MDRD) Non-Af 93, B UN/Creatinine Ratio 24.5 H, Glucose 101 H, Lactic Acid < 1.0, Calcium 7.7, Total Bilirubin 0.33, AST 18, ALT < 5, Alkaline Phosphatase 63, Total Protein 5.7 L, A lbumin 2.6 L, Globulin 3.2, Albumin/Globulin Ratio 0.8 L 03/24/25 16:33: Urine Color Straw, Urine Clarity Cloudy, Urine pH 6.0, Ur Specific [place] 1.010, Urine Protein 30 H, Urine Glucose (UA) Normal, Urine Ketones Negative, Urine Occult Blood 10 H, Urine Nitrite Positive H, Urine Bilirubin Negative, Urine Urobilinogen Normal, Ur Leukocyte Esterase 100 H, Urine RBC 0-5 SEEN, Urine WBC 25-50 SEEN, Ur Squamous Epith Cells 0-5 SEEN, Urine Bacteria 1+, Hyaline Casts 0-5 SEEN, Urine Mucus 0 SEEN 03/24/25 20:44: Vancomycin Trough 15.4 H 03/25/25 06:01: WBC 7.4, RBC 3.08 L, Hgb 8.1 L, Hct 27.4 L, MCV 89.0, MCH 26.3 L , MCHC 29.6 L, RDW Std Deviation 59.0 H, RDW Coeff of Aleena 18.4 H, Plt Count 538 H, MPV 7.8, Immature Gran % (Auto) 1.100 H, Neut % (Auto) 54.2, Lymph % (Auto) 19.2, [place] % (Auto) 9.2, Eos % (Auto) 15.1 H, Baso % (Auto) 1.2 H, Absolute Neuts (auto) 4.0, Absolute Lymphs (auto) 1.42, Nucleated RBC % 0, Sodium 139, Potassium 4.2, Chloride 109 H, Carbon Dioxide 21.7, Anion Gap 8, BUN 11, Creatinine 0.53 L, Estim Creat Clear Calc 49.31 L, Est GFR (MDRD) Non-Af 92, BUN/Creatinine Ratio 20.1 H, Glucose 126 H, Calcium 7.4 L Radiography Diagnostic Testing: Radiology Impression Chest X-Ray 03/24/25 14:00 IMPRESSION: PICC line through right upper extremity approach with the tip in the superior vena cava/right atrial junction. Low lung volumes with small right effusion and mild pulmonary venous congestion. Reading Location: [facility] Hip/Pelvis X-Ray 03/24/25 14:00 IMPRESSION: Prominent degenerative changes of the visualized lower lumbar spine again noted. Partially visualized left proximal femoral endoprosthesis with interlocking screw and extensive mature callus formation. No evidence of metallic fracture or screw loosening is seen in visualized areas. A proximal right femoral endoprosthesis is stable in alignment. No evidence of loosening or metallic fracture. No fracture site is seen. If clinical concern persists, short-term follow-up imaging may be obtained to rule out a currently occult fracture. Reading Location: [address] Rhythm Strip Rhythm Strip: Sinus Rhythm Rate: 60 Ectopy: None Physical Exam Narrative Small Patient states she had a fever intermittently for last 1 week. She also had rash on the right leg 2 days ago. Complaining of pain over right hip. She follows Dr. Gao. Physical exam General: Alert, Oriented x3, Cooperative HEENT: Atraumatic, PERRLA, EOMI, Normocephalic. Oral: No Gingival or Mucosal Lesions/ Ulcerations Neck: Supple, No JVD, Negative Carotid Bruits Chest wall/Lungs: Air entry equal in bilateral lung bases. No crepitation/rhonchi Cardiovascular: Regular rate and rhythm, Normal S1,S2, No M/G/R Abdomen: Bowel Sounds Present, Soft, Non Tender, Non-Distended : No dysuria. No renal angle tenderness. No suprapubic tenderness. Extremities: No edema, Capillary Refill Less than 3 Seconds Skin: Faint redness present over lower part of right thigh medial and lateral lower leg. Faint redness also on the left leg. Musculoskeletal: Mild tenderness present over right hip operative region, lower legs. No Tenderness to Palpation of Joints or Extremities Neurological: Cranial nerves II-XII grossly intact, DTR 2+/4. No acute focal neurological deficit. Psych/Mental Status: Assessment & Plan Assessment/Plan (1) MRSA infection: (2) Rash and nonspecific skin eruption: (3) Infection and inflammatory reaction due to internal right hip prosthesis, initial encounter: PLAN: Plan 84-year-old female being admitted for concern of rash possible infection at right hip surgical site. She had open reduction internal fixation of right hip fracture on 01/20/2025 and this was complicated by postop infection with removal of the prosthesis. She was on IV vancomycin and rifampin. She developed a rash over the surgical site and so rifampin was stopped about a week ago per ID. Rash has persisted therefore she was admitted #Recurrent right hip surgical site infection: Patient is being admitted on MedSurg floor. ID is consulted from ER physician. Continue IV vancomycin. Orthopedic surgeon consulted. As per orthopedic surgeon note, wound VAC was not able to be placed in nursing facility. * WBC is not elevated and imaging done showed partially visualized left proximal femoral endoprosthesis with interlocking screw and extensive mature callus formation with no evidence of loosening or metallic fracture. * Admitted to [facility]. ED doctor spoke to ID who recommended patient continuing on IV vancomycin. * ID consulted. * PO tylenol, PO oxycodone and IV morphine prn for pain * PT/OT consult * fall precautions * Wound culture on 03/02 showed MRSA. Blood culture and wound culture on 03/24 are pending. On IV vancomycin 750 mg every 12 hours. * Clinically, faint rash on the right lower thigh and lower legs. # CAD s/p stents: On aspirin and high intensity statin #History of Parkinson's disease: on levodopa/carbidopa #Benign essential hypertension: on metoprolol. IV hydralazine as needed #History of argyria * Skin on face and upper torso is carl with bluish tinge. She states this is due to ingestion of silver water about 30 years ago and the recommendation of a dietitian to help with her fibromyalgia. DVT prophylaxis: Lovenox Code status: DNRCCA no intubation as per the paperwork from the alf Laboratory Results 03/24/25 14:25: WBC 7.6, RBC 3.07 L, Hgb 8.2 L, Hct 27.1 L, MCV 88.3, MCH 26.7 L , MCHC 30.3 L, RDW Std Deviation 58.4 H, RDW Coeff of Aleena 18.5 H, Plt Count 511 H, MPV 7.7, Immature Gran % (Auto) 1.700 H, Neut % (Auto) 54.2, Lymph % (Auto) 20.9, [place] % (Auto) 9.5, Eos % (Auto) 13.2 H, Baso % (Auto) 0.5, Absolute Neuts (auto) 4.1, Absolute Lymphs (auto) 1.58, Nucleated RBC % 0, PT 16.7 H, INR 1.3, APTT 38.4 H, Sodium 134, Potassium 4.3, Chloride 104, Carbon Dioxide 23.5, Anion Gap 6, BUN 12, Creatinine 0.50 L, Estim Creat Clear Calc 54.49, Est GFR (MDRD) Non-Af 93, BUN/Creatinine Ratio 24.5 H, Glucose 101 H, Lactic Acid < 1.0, Calcium 7.7, Total Bilirubin 0.33, AST 18, ALT < 5, Alkaline Phosphatase 63, T otal Protein 5.7 L, Albumin 2.6 L, Globulin 3.2, Albumin/Globulin Ratio 0.8 L 03/24/25 16:33: Urine Color Straw, Urine Clarity Cloudy, Urine pH 6.0, Ur Specific [place] 1.010, Urine Protein 30 H, Urine Glucose (UA) Normal, Urine Ketones Negative, Urine Occult Blood 10 H, Urine Nitrite Positive H, Urine Bilirubin Negative, Urine Urobilinogen Normal, Ur Leukocyte Esterase 100 H, Urine RBC 0-5 SEEN, Urine WBC 25-50 SEEN, Ur Squamous Epith Cells 0-5 SEEN, Urine Bacteria 1+, Hyaline Casts 0-5 SEEN, Urine Mucus 0 SEEN 03/24/25 20:44: Vancomycin Trough 15.4 H 03/25/25 06:01: WBC 7.4, RBC 3.08 L, Hgb 8.1 L, Hct 27.4 L, MCV 89.0, MCH 26.3 L , MCHC 29.6 L, RDW Std Deviation 59.0 H, RDW Coeff of Aleena 18.4 H, Plt Count 538 H, MPV 7.8, Immature Gran % (Auto) 1.100 H, Neut % (Auto) 54.2, Lymph % (Auto) 19.2, [place] % (Auto) 9.2, Eos % (Auto) 15.1 H, Baso % (Auto) 1.2 H, Absolute Neuts (auto) 4.0, Absolute Lymphs (auto) 1.42, Nucleated RBC % 0, Sodium 139, Potassium 4.2, Chloride 109 H, Carbon Dioxide 21.7, Anion Gap 8, BUN 11, C reatinine 0.53 L, Estim Creat Clear Calc 49.31 L, Est GFR (MDRD) Non-Af 92, B UN/Creatinine Ratio 20.1 H, Glucose 126 H, Calcium 7.4 L Charges/Coding Visit Charges Inpatient E&M: 83149 Subs Hosp L2
--- NOTE | 2025-03-25 09:21 | PN.ORTHO_ITS ---
Subjective Subjective Patient is an 84-year-old patient known to me. She is status post right hip hemiarthroplasty with periprosthetic infection with return to the OR for washout on 03/02/2025. She was seen in the office about a week ago and noted to have some continued drainage. Sutures were left in place. There is no erythema. She remains on IV antibiotics. We been attempting to get a incisional wound VAC placed at the nursing facility however they have been unable to do this. They sent her to the emergency department for a rash on her lower legs concerned that it is in relation to the current IV antibiotic treatment and continued drainage. Patient reports she is comfortable. Objective Data Objective Data Vital Signs: Vital Signs Temp Pulse Resp BP Pulse Ox O2 Del Method 98.4 F 80 16 143/66 H 96 Room Air 03/25/25 08:46 03/25/25 08:46 03/25/25 08:46 03/25/25 08:46 03/25/25 08:46 03/25/25 08:46 Oxygen Delivery Method Room Air Weight: 157 lb 6.561 oz Body Mass Index (BMI) 28.8 Intake & Output: Intake and Output for Last 24 Hours 03/23/25 03/24/25 03/25/25 23:59 23:59 23:59 Intake Total 1265 / 1265 1000 / 1000 Output Total 825 / 825 Balance 1265 / 740 175 / 175 Lab / Micro Data Attestation: I reviewed the patient's lab results. 03/25/25 06:01 03/25/25 06:01 Labs: Laboratory Results - last 24 hr 03/24/25 14:25: WBC 7.6, RBC 3.07 L, Hgb 8.2 L, Hct 27.1 L, MCV 88.3, MCH 26.7 L , MCHC 30.3 L, RDW Std Deviation 58.4 H, RDW Coeff of Aleena 18.5 H, Plt Count 511 H, MPV 7.7, Immature Gran % (Auto) 1.700 H, Neut % (Auto) 54.2, Lymph % (Auto) 20.9, [place] % (Auto) 9.5, Eos % (Auto) 13.2 H, Baso % (Auto) 0.5, Absolute Neuts (auto) 4.1, Absolute Lymphs (auto) 1.58, Nucleated RBC % 0, PT 16.7 H, INR 1.3, APTT 38.4 H, Sodium 134, Potassium 4.3, Chloride 104, Carbon Dioxide 23.5, Anion Gap 6, BUN 12, Creatinine 0.50 L, Estim Creat Clear Calc 54.49, Est GFR (MDRD) Non-Af 93, BUN/Creatinine Ratio 24.5 H, Glucose 101 H, Lactic Acid < 1.0, Calcium 7.7, Total Bilirubin 0.33, AST 18, ALT < 5, Alkaline Phosphatase 63, T otal Protein 5.7 L, Albumin 2.6 L, Globulin 3.2, Albumin/Globulin Ratio 0.8 L 03/24/25 16:33: Urine Color Straw, Urine Clarity Cloudy, Urine pH 6.0, Ur Specific [place] 1.010, Urine Protein 30 H, Urine Glucose (UA) Normal, Urine Ketones Negative, Urine Occult Blood 10 H, Urine Nitrite Positive H, Urine Bilirubin Negative, Urine Urobilinogen Normal, Ur Leukocyte Esterase 100 H, Urine RBC 0-5 SEEN, Urine WBC 25-50 SEEN, Ur Squamous Epith Cells 0-5 SEEN, Urine Bacteria 1+, Hyaline Casts 0-5 SEEN, Urine Mucus 0 SEEN 03/24/25 20:44: Vancomycin Trough 15.4 H 03/25/25 06:01: WBC 7.4, RBC 3.08 L, Hgb 8.1 L, Hct 27.4 L, MCV 89.0, MCH 26.3 L , MCHC 29.6 L, RDW Std Deviation 59.0 H, RDW Coeff of Aleena 18.4 H, Plt Count 538 H, MPV 7.8, Immature Gran % (Auto) 1.100 H, Neut % (Auto) 54.2, Lymph % (Auto) 19.2, [place] % (Auto) 9.2, Eos % (Auto) 15.1 H, Baso % (Auto) 1.2 H, Absolute Neuts (auto) 4.0, Absolute Lymphs (auto) 1.42, Nucleated RBC % 0, Sodium 139, Potassium 4.2, Chloride 109 H, Carbon Dioxide 21.7, Anion Gap 8, BUN 11, C reatinine 0.53 L, Estim Creat Clear Calc 49.31 L, Est GFR (MDRD) Non-Af 92, B UN/Creatinine Ratio 20.1 H, Glucose 126 H, Calcium 7.4 L Radiography Diagnostic Testing: Radiology Impression Chest X-Ray 03/24/25 14:00 IMPRESSION: PICC line through right upper extremity approach with the tip in the superior vena cava/right atrial junction. Low lung volumes with small right effusion and mild pulmonary venous congestion. Reading Location: [facility] Hip/Pelvis X-Ray 03/24/25 14:00 IMPRESSION: Prominent degenerative changes of the visualized lower lumbar spine again noted. Partially visualized left proximal femoral endoprosthesis with interlocking screw and extensive mature callus formation. No evidence of metallic fracture or screw loosening is seen in visualized areas. A proximal right femoral endoprosthesis is stable in alignment. No evidence of loosening or metallic fracture. No fracture site is seen. If clinical concern persists, short-term follow-up imaging may be obtained to rule out a currently occult fracture. Reading Location: [address] Independent review of right hip images show stable well aligned partial hip replacement with no interval changes from x-rays taken 03/02/2025 Rhythm Strip Rhythm Strip: Sinus Rhythm Rate: 60 Ectopy: None Physical Exam Const alert and oriented x3 Extremity Extremity Narrative: Right lower extremity: Previous incision has a portion of it proximally with whitish eschar. Distally there is a small area where there is some dark drainage noted on the dressing. Dressing is not grossly saturated. No erythema. Bilateral lower extremity show corrugations from itching. There are some small raised areas. Minimal erythema. Assessment & Plan Assessment/Plan (1) MRSA infection: (2) Infection and inflammatory reaction due to internal right hip prosthesis, initial encounter: PLAN: At this time patient is under my care as well as the care of the infectious ease doctor for this periprosthetic joint infection. She continues on IV antibiotics. She has significantly compromised tissue. We discussed return to operating room versus continued nonoperative management especially since she has been on IV antibiotics since the surgery. Patient voices a preference to proceed with nonoperative treatment if at all possible. Sutures remain in place. At this point I would like to move forward with local wound management including an incisional wound VAC to help wick away any drainage of moisture and allow for progression of healing. From an antibiotic standpoint will have infectious disease reviewed the patient's antibiotic regimen. The wound care nurse should be in on Thursday we will have her assess the wound and placed incisional wound VAC. At the time of place an incisional wound VAC will likely be able to remove the sutures as the incision appears to be adequately healed from that standpoint. If there are any further questions or concerns please contact orthopedics. [facility] Office:
--- NOTE | 2025-03-25 09:38 | CASEMGMT ---
Social Work SW reviewed chart, pt is here from [facility]. SW met w/pt, confirmed she is from [facility] and plans to return at discharge. She has been there for three years. No SNF list is needed at this time. JOSUE will send updates later today, it is anticipated pt will return to [facility] at d/c. Pt will be here through the weekend. WILLIE Her
[2025-03-25] MEDS: Vancomycin HCl 750 MG in 0.9% Normal Saline (250mL Bag) 250 ML 250 MG IV ×2 (09:43→22:14)
[2025-03-25] MEDS: 0.9% Normal Saline (250mL Bag) 250 ML 15 ML IV (15:33)
[2025-03-25] MEDS: MELATONIN 3 MG TABLET PO (22:15)
[2025-03-26] VITALS (7 sets, daily range): BP systolic 110–150; BP diastolic 52–68; PULSE 71–83; RESP 16–17; TEMP 36.4–36.7; O2SAT 94–100
[2025-03-26] MEDS: Hydrocortisone 2.5% Crm 1 APPLIC TOPICAL (01:04)
[2025-03-26 03:59] LABS: Hematocrit 27.5 % (37-47); Hemoglobin 8.3 g/dL (12.0-15.0); Immature Granulocytes Count 0.070 X10^3/uL (0.0-0.0); Mean Corp Hgb Conc 30.2 g/dL (32-36); Mean Corpuscular Volume 88.7 fL (81-99); Mean Platelet Vol. 8.1 fl (6.2-12.0); NRBC Flagged by Analyzer 0 % (0-5); Platelet Count 522 K/mm3 (150-450); RBC Distribution Width CV 18.0 % (11.6-14.6); RBC Distribution Width SD 57.3 fl (35.1-43.9); Red Blood Count 3.10 M/mm3 (4.2-5.4); White Blood Count 8.4 K/mm3 (4.4-11.0)
[2025-03-26 04:54] LABS: Anion Gap 9 (5-15); BUN 12 mg/dL (4-19); BUN/Creat Ratio 23.8 RATIO (10-20); Calcium,Total 7.8 mg/dL (7.6-11.0); Carbon Dioxide 21.4 mmol/L (21.0-32.0); Chloride 105 mmol/L (98-108); Estimated Creatinine Clearance 48.44 ml/min (50-250); Glucose 106 mg/dL (70-99); Potassium 4.0 mmol/L (3.3-5.1)
[2025-03-26] MEDS: Cholecalciferol (VIT D3) 25 MCG TABLET (1,000 UNITS) 50 MCG PO (07:36)
[2025-03-26] MEDS: Aspirin E.C. 81 MG Tablet PO (07:36)
[2025-03-26] MEDS: Mineral Oil/Petrolatum Cr 1.75oz Bottle 1 APPLIC TOPICAL (07:37)
--- NOTE | 2025-03-26 08:22 | PN.ORTHO_ITS ---
Subjective Subjective Patient stable. Comfortable. Continues to have drainage. Continues to complain of itching in her legs. Objective Data Objective Data Vital Signs: Vital Signs Temp Pulse Resp BP Pulse Ox O2 Del Method 98 F 78 16 143/61 H 98 Room Air 03/26/25 04:47 03/26/25 07:37 03/26/25 04:47 03/26/25 04:47 03/26/25 04:47 03/26/25 04:47 Oxygen Delivery Method Room Air Weight: 157 lb 6.561 oz Body Mass Index (BMI) 28.8 Intake & Output: Intake and Output for Last 24 Hours 03/24/25 03/25/25 03/26/25 23:59 23:59 23:59 Intake Total 1265 / 1265 3417.50 / 3417.50 Output Total 1125 / 1125 400 / 400 Balance 1265 / 740 2292.50 / 2292.50 -400 / -400 Lab / Micro Data Attestation: I reviewed the patient's lab results. 03/26/25 03:09 03/26/25 03:09 Labs: Laboratory Results - last 24 hr 03/26/25 03:09: WBC 8.4, RBC 3.10 L, Hgb 8.3 L, Hct 27.5 L, MCV 88.7, MCH 26.8 L , MCHC 30.2 L, RDW Std Deviation 57.3 H, RDW Coeff of Aleena 18.0 H, Plt Count 522 H, MPV 8.1, Immature Gran % (Auto) 0.800, Neut % (Auto) 59.2, Lymph % (Auto) 16.4 L, [place] % (Auto) 9.4, Eos % (Auto) 13.4 H, Baso % (Auto) 0.8, Absolute Neuts (auto) 5.0, Absolute Lymphs (auto) 1.38, Nucleated RBC % 0, Sodium 136, Potassium 4.0, Chloride 105, Carbon Dioxide 21.4, Anion Gap 9, BUN 12, C reatinine 0.51 L, Estim Creat Clear Calc 48.44 L, Est GFR (MDRD) Non-Af 92, B UN/Creatinine Ratio 23.8 H, Glucose 106 H, Calcium 7.8 Micro: Microbiology 03/24/25 20:11 Wound - Hip Gram Stain - Final 03/24/25 20:11 Wound - Hip Wound Culture - Preliminary GNR lactose hearing aid consultant Rhythm Strip Rhythm Strip: Sinus Rhythm Rate: 60 Ectopy: None Physical Exam Const alert and oriented x3 General Appearance: cooperative Extremity Extremity Narrative: Right lower extremity: Incision remains without erythema. There is still some serous drainage which is cloudy on the more proximal portion of the incision as well as most distal portion of the incision. Sutures remain in place. Assessment & Plan Assessment/Plan (1) MRSA infection: (2) Infection and inflammatory reaction due to internal right hip prosthesis, initial encounter: PLAN: Wound care nurse will be back tomorrow. I will discuss case with the wound care nurse. Hopefully we can get a VAC placed. Patient remains adamant she would like to continue attempting nonoperative treatment. I did explain to the patient that this may not be entirely possible. I do think that once we remove some of the sutures we may have some opening of the incision that could allow for deeper wound VAC placement and wicking away of some of this fluid. While she remains on IV antibiotics we can attempt a wound VAC prior to returning to surgery. Patient understands she may still need further surgery if this is unsuccessful. Please call orthopedics with any further questions or concerns. Patient will likely need discharge to a facility that can manage her wound potentially with transitional care unit would be a good place as he wound nurse at the hospital continue to follow her there and we can coordinate her care more appropriately. [facility] Office:
[2025-03-26 10:02] LABS: Vancomycin, Trough Level 15.0 ug/mL (5.0-15.0)
--- NOTE | 2025-03-26 10:12 | PHA.PHARE_ITS ---
Consult Antibiotic Management Pharmacy has been consulted to manage selected antibiotic: Vancomycin Type of Intervention Type of Consult: Follow-up Prior Doses of Antibiotics Prior Doses of Antibiotics Received/Current Regimen: current dose is vanc 750mg IV q12h Labs Labs: Sodium 136 mmol/L (133-145) 03/26/25 03:09 Potassium 4.0 mmol/L (3.3-5.1) 03/26/25 03:09 Chloride 105 mmol/L (98-108) 03/26/25 03:09 Carbon Dioxide 21.4 mmol/L (21.0-32.0) 03/26/25 03:09 Anion Gap 9 (5-15) 03/26/25 03:09 BUN 12 mg/dL (4-19) 03/26/25 03:09 Creatinine 0.51 mg/dL (0.70-1.20) L 03/26/25 03:09 Est GFR (MDRD) Non-Af 92 (>60) 03/26/25 03:09 BUN/Creatinine Ratio 23.8 RATIO (10-20) H 03/26/25 03:09 Glucose 106 mg/dL (70-99) H 03/26/25 03:09 Vancomycin Trough 15.0 ug/mL (5.0-15.0) 03/26/25 09:30 Microbiology Microbiology: Microbiology 03/24/25 20:11 Wound - Hip Gram Stain - Final 03/24/25 20:11 Wound - Hip Wound Culture - Preliminary GNR 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 This is in goal range so will keep same dose. Repeat a trough in 2 days per protocol. Pharmacy Service will continue to monitor and adjust dosing as required. Follow-Up Labs Follow-Up Labs: Trough: Vancomycin Date/Time Labs Ordered Labs to be done on [date and time ordered]: 03/28/25 09:30
[2025-03-26] MEDS: Vancomycin HCl 750 MG in 0.9% Normal Saline (250mL Bag) 250 ML 250 MG IV ×2 (10:23→21:16)
--- NOTE | 2025-03-26 10:49 | PN.HOSP_ITS ---
Objective Data Objective Data Vital Signs: Vital Signs Temp Pulse Resp BP Pulse Ox O2 Del Method 97.7 F L 78 16 150/65 H 94 Room Air 03/26/25 08:35 03/26/25 08:35 03/26/25 08:35 03/26/25 08:35 03/26/25 08:35 03/26/25 08:35 Oxygen Delivery Method Room Air Weight: 157 lb 6.561 oz Body Mass Index (BMI) 28.8 Intake & Output: Intake and Output for Last 24 Hours 03/24/25 03/25/25 03/26/25 23:59 23:59 23:59 Intake Total 1265 / 1265 3417.50 / 3417.50 250 / 250 Output Total 1125 / 1125 400 / 400 Balance 1265 / 740 2292.50 / 2292.50 -150 / -150 Lab / Micro Data 03/26/25 03:09 03/26/25 03:09 Labs: Laboratory Results - last 24 hr 03/26/25 03:09: WBC 8.4, RBC 3.10 L, Hgb 8.3 L, Hct 27.5 L, MCV 88.7, MCH 26.8 L , MCHC 30.2 L, RDW Std Deviation 57.3 H, RDW Coeff of Aleena 18.0 H, Plt Count 522 H, MPV 8.1, Immature Gran % (Auto) 0.800, Neut % (Auto) 59.2, Lymph % (Auto) 16.4 L, [place] % (Auto) 9.4, Eos % (Auto) 13.4 H, Baso % (Auto) 0.8, Absolute Neuts (auto) 5.0, Absolute Lymphs (auto) 1.38, Nucleated RBC % 0, Sodium 136, Potassium 4.0, Chloride 105, Carbon Dioxide 21.4, Anion Gap 9, BUN 12, C reatinine 0.51 L, Estim Creat Clear Calc 48.44 L, Est GFR (MDRD) Non-Af 92, B UN/Creatinine Ratio 23.8 H, Glucose 106 H, Calcium 7.8 03/26/25 09:30: Vancomycin Trough 15.0 Micro: Microbiology 03/24/25 20:11 Wound - Hip Gram Stain - Final 03/24/25 20:11 Wound - Hip Wound Culture - Preliminary GNR lactose 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 Was admitted with fever intermittently for last 1 week. She also had rash on the right leg 2 days ago. Complaining of pain over right hip and bilateral lower legs. Physical exam General: Alert, Oriented x3, Cooperative HEENT: Atraumatic, PERRLA, EOMI, Normocephalic. Oral: No Gingival or Mucosal Lesions/ Ulcerations Neck: Supple, No JVD, Negative Carotid Bruits Chest wall/Lungs: Air entry equal in bilateral lung bases. No crepitation/rhonchi Cardiovascular: Regular rate and rhythm, Normal S1,S2, No M/G/R Abdomen: Bowel Sounds Present, Soft, Non Tender, Non-Distended : No dysuria. No renal angle tenderness. No suprapubic tenderness. Extremities: No edema, Capillary Refill Less than 3 Seconds Skin: Mild faint redness present over lower part of right thigh medial and lateral lower leg. Seropurulent stain present on the right hip surgical dressing, reji intact Musculoskeletal: Mild tenderness present over right hip operative region, bilateral lower legs. No Tenderness to Palpation of Joints or Extremities Neurological: Cranial nerves II-XII grossly intact, DTR 2+/4. No acute focal neurological deficit. Psych/Mental Status: Assessment & Plan Assessment/Plan (1) MRSA infection: (2) Rash and nonspecific skin eruption: (3) Infection and inflammatory reaction due to internal right hip prosthesis, initial encounter: PLAN: Plan 84-year-old female being admitted for concern of rash possible infection at right hip surgical site. She had open reduction internal fixation of right hip fracture on 01/20/2025 and this was complicated by postop infection with removal of the prosthesis. She was on IV vancomycin and rifampin. She developed a rash over the surgical site and so rifampin was stopped about a week ago per ID. Rash has persisted therefore she was admitted #Recurrent right hip surgical site infection: Patient is being admitted on MedSur floor. ID is consulted from ER physician. Continue IV vancomycin. Orthopedic surgeon consulted. As per orthopedic surgeon note, wound VAC was not able to be placed in nursing facility. * WBC is not elevated and imaging done showed partially visualized left proximal femoral endoprosthesis with interlocking screw and extensive mature callus formation with no evidence of loosening or metallic fracture. * Admitted to [facility]. ED doctor spoke to ID who recommended patient continuing on IV vancomycin. * ID consulted. * PO tylenol, PO oxycodone and IV morphine prn for pain * PT/OT consult * fall precautions * Wound culture on 03/02 showed MRSA. Blood culture and wound culture on 03/24 are pending. On IV vancomycin 750 mg every 12 hours. * Clinically, faint rash on the right lower thigh and lower legs. 03/26: No fever. Stent present on the surgical dressing seropurulent. Gram stain showing 2+ GNR lactose heavy lift rigger. Ceftriaxone 2 g IV daily started. Continue vancomycin. No leukocytosis. # CAD s/p stents: On aspirin and high intensity statin #History of Parkinson's disease: on levodopa/carbidopa #Benign essential hypertension: on metoprolol. IV hydralazine as needed #History of argyria * Skin on face and upper torso is carl with bluish tinge. She states this is due to ingestion of silver water about 30 years ago and the recommendation of a dietitian to help with her fibromyalgia. DVT prophylaxis: Lovenox Code status: DNRCCA no intubation as per the paperwork from the [facility] Charges/Coding Visit Charges Inpatient E&M: 36423 Subs Hosp L2
[2025-03-26] MEDS: Ceftriaxone 2 GM in 0.9% Normal Saline (50mL MB+) 50 ML IV (12:00)
[2025-03-26] MEDS: 0.9% Normal Saline (250mL Bag) 250 ML 15 ML IV (12:02)
[2025-03-26] MEDS: MELATONIN 3 MG TABLET PO (21:16)
[2025-03-27] VITALS (8 sets, daily range): BP systolic 120–148; BP diastolic 51–73; PULSE 75–87; RESP 16; TEMP 36.4–36.8; O2SAT 97–99
[2025-03-27] MEDS: 0.9% Normal Saline (250mL Bag) 250 ML 15 ML IV (05:30)
[2025-03-27 06:31] LABS: Hematocrit 28.1 % (37-47); Hemoglobin 8.4 g/dL (12.0-15.0); Immature Granulocytes Count 0.050 X10^3/uL (0.0-0.0); Mean Corp Hgb Conc 29.9 g/dL (32-36); Mean Corpuscular Volume 89.2 fL (81-99); Mean Platelet Vol. 8.0 fl (6.2-12.0); NRBC Flagged by Analyzer 0 % (0-5); Platelet Count 522 K/mm3 (150-450); RBC Distribution Width CV 18.4 % (11.6-14.6); RBC Distribution Width SD 59.2 fl (35.1-43.9); Red Blood Count 3.15 M/mm3 (4.2-5.4); White Blood Count 7.8 K/mm3 (4.4-11.0)
[2025-03-27 07:03] LABS: Anion Gap 7 (5-15); BUN 10 mg/dL (4-19); BUN/Creat Ratio 18.7 RATIO (10-20); Calcium,Total 8.1 mg/dL (7.6-11.0); Carbon Dioxide 21.9 mmol/L (21.0-32.0); Chloride 109 mmol/L (98-108); Estimated Creatinine Clearance 48.44 ml/min (50-250); Glucose 98 mg/dL (70-99); Potassium 4.3 mmol/L (3.3-5.1)
[2025-03-27] MEDS: Cholecalciferol (VIT D3) 25 MCG TABLET (1,000 UNITS) 50 MCG PO (07:36)
[2025-03-27] MEDS: Aspirin E.C. 81 MG Tablet PO (07:36)
[2025-03-27] MEDS: Mineral Oil/Petrolatum Cr 1.75oz Bottle 1 APPLIC TOPICAL (07:36)
--- NOTE | 2025-03-27 08:51 | WOUNDNOTE ---
wound photo: right hip
--- NOTE | 2025-03-27 08:55 | CASEMGMT ---
Addendum entered by Frida Santamaria 03/27/25 09:44: Per Grace, pt may return intermediate if ID addresses wound infection. SW updated. Original Note: Discharge Planning Updates sent via [facility] to Grace with note asking if pt will need precert. Awaiting response. Frida Santamaria DC Planning Asst.
[2025-03-27] MEDS: Ceftriaxone 2 GM in 0.9% Normal Saline (50mL MB+) 50 ML IV (09:09)
[2025-03-27] MEDS: Vancomycin HCl 750 MG in 0.9% Normal Saline (250mL Bag) 250 ML 250 MG IV ×2 (10:01→22:20)
--- NOTE | 2025-03-27 10:46 | PN.HOSP_ITS ---
Objective Data Objective Data Vital Signs: Vital Signs Temp Pulse Resp BP Pulse Ox O2 Del Method 98 F 75 16 134/51 H 98 Room Air 03/27/25 08:30 03/27/25 08:30 03/27/25 08:30 03/27/25 08:30 03/27/25 08:30 03/27/25 08:30 Oxygen Delivery Method Room Air Weight: 157 lb 6.561 oz Body Mass Index (BMI) 28.8 Intake & Output: Intake and Output for Last 24 Hours 03/25/25 03/26/25 03/27/25 23:59 23:59 23:59 Intake Total 3417.50 / 3417.50 1530 / 1530 658.75 / 658.75 Output Total 1125 / 1125 400 / 650 925 / 925 Balance 2292.50 / 2292.50 1130 / 880 -266.25 / -266.25 Lab / Micro Data 03/27/25 05:16 03/27/25 05:16 Labs: Laboratory Results - last 24 hr 03/27/25 05:16: WBC 7.8, RBC 3.15 L, Hgb 8.4 L, Hct 28.1 L, MCV 89.2, MCH 26.7 L , MCHC 29.9 L, RDW Std Deviation 59.2 H, RDW Coeff of Aleena 18.4 H, Plt Count 522 H, MPV 8.0, Immature Gran % (Auto) 0.600, Neut % (Auto) 53.9, Lymph % (Auto) 19.3, [place] % (Auto) 11.9 H, Eos % (Auto) 13.1 H, Baso % (Auto) 1.2 H, Absolute Neuts (auto) 4.2, Absolute Lymphs (auto) 1.50, Nucleated RBC % 0, Sodium 138, Potassium 4.3, Chloride 109 H, Carbon Dioxide 21.9, Anion Gap 7, BUN 10, C reatinine 0.55 L, Estim Creat Clear Calc 48.44 L, Est GFR (MDRD) Non-Af 91, BUN/Creatinine Ratio 18.7, Glucose 98, Calcium 8.1 Micro: Microbiology 03/24/25 20:11 Wound - Hip Gram Stain - Final 03/24/25 20:11 Wound - Hip Wound Culture - Final Klebsiella pneumoniae sp pneum Rhythm Strip Rhythm Strip: Sinus Rhythm Rate: 60 Ectopy: None Physical Exam Narrative Seen and examined Patient has mild discharge/sustained on the dressing pad. Was admitted with fever intermittently for last 1 week. She also had rash on the right leg 2 days ago. Complaining of pain over right hip and bilateral lower legs. Physical exam General: Alert, Oriented x3, Cooperative HEENT: Atraumatic, PERRLA, EOMI, Normocephalic. Oral: No Gingival or Mucosal Lesions/ Ulcerations Neck: Supple, No JVD, Negative Carotid Bruits Chest wall/Lungs: Air entry equal in bilateral lung bases. No crepitation/rhonchi Cardiovascular: Regular rate and rhythm, Normal S1,S2, No M/G/R Abdomen: Bowel Sounds Present, Soft, Non Tender, Non-Distended : No dysuria. No renal angle tenderness. No suprapubic tenderness. Extremities: Right hip operative region subcutaneous edema, Capillary Refill Less than 3 Seconds Skin: Wound VAC present around right hip operative region/incisional line. Mild faint redness present over lower part of right thigh medial and lateral lower leg. Musculoskeletal: Mild tenderness present over right hip operative region, subcutaneous edema. Bilateral lower legs. No Tenderness to Palpation of Joints or Extremities Neurological: Cranial nerves II-XII grossly intact, DTR 2+/4. No acute focal neurological deficit. Psych/Mental Status: Flat affect Assessment & Plan Assessment/Plan (1) MRSA infection: (2) Rash and nonspecific skin eruption: (3) Infection and inflammatory reaction due to internal right hip prosthesis, initial encounter: PLAN: Plan 84-year-old female being admitted for concern of rash possible infection at right hip surgical site. She had open reduction internal fixation of right hip fracture on 01/20/2025 and this was complicated by postop infection with removal of the prosthesis. She was on IV vancomycin and rifampin. She developed a rash over the surgical site and so rifampin was stopped about a week ago per ID. Rash has persisted therefore she was admitted #Recurrent right hip surgical site infection: Patient is being admitted on MedSurg floor. ID is consulted from ER physician. Continue IV vancomycin. Orthopedic surgeon consulted. As per orthopedic surgeon note, wound VAC was not able to be placed in nursing facility. * WBC is not elevated and imaging done showed partially visualized left proximal femoral endoprosthesis with interlocking screw and extensive mature callus formation with no evidence of loosening or metallic fracture. * Admitted to [facility]. ED doctor spoke to ID who recommended patient continuing on IV vancomycin. * ID consulted. * PO tylenol, PO oxycodone and IV morphine prn for pain * PT/OT consult * fall precautions * Wound culture on 03/02 showed MRSA. Blood culture and wound culture on 03/24 are pending. On IV vancomycin 750 mg every 12 hours. * Clinically, faint rash on the right lower thigh and lower legs. 03/26: No fever. Stain present on the surgical dressing seropurulent. 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 Ceftriaxone 2 g IV daily started. Continue vancomycin. No leukocytosis. 03/27: No fever. Wound VAC present along incisional line. Wound culture growing Klebsiella pneumoniae. Continue IV ceftriaxone and vancomycin. ID consult requested. As per Ortho note, patient decided for nonoperative management with wound VAC and antibiotics. Possible discharge plan after ID recommendation of antibiotics # CAD s/p stents: On aspirin and high intensity statin #History of Parkinson's disease: on levodopa/carbidopa #Benign essential hypertension: on metoprolol. IV hydralazine as needed #History of argyria * Skin on face and upper torso is carl with bluish tinge. She states this is due to ingestion of silver water about 30 years ago and the recommendation of a dietitian to help with her fibromyalgia. DVT prophylaxis: Lovenox Code status: DNRCCA no intubation as per the paperwork from the [facility] Charges/Coding Visit Charges Inpatient E&M: 22031 Subs Hosp L2
--- NOTE | 2025-03-27 13:35 | CASEMGMT ---
Social Work- Pt from [facility] where she was being skilled for IV abx and therapy. If pt is stable and ID has addressed wound infection per Grace Richards, pt is able to return intermediate. Pt spouse also resides at the facility. It was noted By Grace Richards that wound vac is available at the facility for application upon her return by their in-house wound dr and wound nurse. SW follows for discharge planning needs. Plan: return to [facility]
--- NOTE | 2025-03-27 13:44 | CON.PCM.ID_ITS ---
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 Tijerina on 03/02/25. Discharged on 6 weeks iv vanc and po rifampin. Rifampin stopped due to rash. Now with wound cx (+) klebsiella from R hip, on ceftriaxone, improving. Cont vanc/ceftriaxone, plan on discharge with IV vanc, stop date 04/13/25 and one week course po augmentin 875mg bid for klebsiella coverage. Once IV vanc completes, will need long course suppressive po doxy 100mg bid. ID followup in 3 weeks. Will follow, thank you (2) MRSA infection: (3) Surgical site infection: HPI Consult Data Date of Consult: 03/27/25 HPI Narrative Reason for Consultation: cellulitis HPI Narrative: DAGOBERTO COHN, is a 85 F with recent admission for MRSA R hip PJI, taken to OR 03/02/25 for I&D. Discharged on 6 weeks iv vanc and po rifampin. Over past two weeks, developed rash on R hip, BLE. Rifampin was stopped 10 days ago, rash persisted, send to ED admitted 03/24. Incision with some purulent drainage, ceftriaxone started. Mild soreness, no fever, reports rash is unchanged. Full ROS performed and neg except as noted above. [facility] Medical History Anemia MRSA (methicillin resistant staph aureus) culture positive Nocturia Urge incontinence Overactive bladder Former tobacco use Depression Hypertension Fall CHI (closed head injury) Presence of stent in coronary artery (~12/22/21) Atherosclerotic heart disease of [place] coronary artery without angina pectoris ST elevation myocardial infarction (STEMI) of inferior wall (~12/22/21) Essential (primary) hypertension Parkinsons disease Urgency of urination Gout Cardiogenic shock Non-rheumatic mitral regurgitation Non-rheumatic tricuspid valve insufficiency Pulmonary hypertension Emphysema with chronic bronchitis Fibromyalgia Hyperlipidemia CAD (coronary artery disease) Bladder spasms Edema, lower extremity Myocardial infarction Home Medications ?Medication ?Instructions ?Recorded ?Last Taken ?Type acetaminophen 325 mg capsule 650 mg PO Q8H PRN fever o r pain 05/01/23 04/29/23 History atorvastatin 40 mg tablet 40 mg PO QHS hYPERLIPIDEMIA 05/01/23 04/30/23 History polyethylene glycol 3350 17 17 g PO DAILY PRN constipa tion 05/01/23 05/01/23 History gram/dose oral powder (ClearLax) psyllium husk 3.4 gram/5.4 gram 1 tbsp PO DAILY PRN CO NSTIPATION 05/01/23 04/30/23 History oral powder (Stacie-Mucil) alendronate 70 mg tablet 70 mg PO QWEEK osteoporosis 09/27/24 Unknown History duloxetine 20 mg capsule,delayed 20 mg PO QDAY DEPRESS ION 09/27/24 Unknown History release guaifenesin 100 mg/5 mL oral liquid 200 mg PO Q4H PRN cough 12/28/24 Unknown History melatonin 3 mg capsule 3 mg PO HS sleep 12/28/24 Un known History simethicone 125 mg chewable tablet 125 mg PO BID PRN a bdominal 12/28/24 Unknown History (Mylanta Gas) distention ascorbic acid (vitamin C) 500 mg 500 mg PO BID supplem ent 01/20/25 Unknown History capsule carbidopa 25 mg-levodopa 100 mg 1.5 tab PO TID kelsey on 01/20/25 Unknown History tablet (Dhivy) mirabegron 50 mg tablet,extended 50 mg PO DAILY bladde r 01/20/25 Unknown History release 24 hr (Myrbetriq) acetaminophen 500 mg tablet 500 mg PO Q8H PRN pain 09/04 Unknown History (Tylenol Extra Strength) ferrous sulfate 325 mg (65 mg 325 mg PO BID ANEMIA 09/04 Unknown History iron) tablet (FeroSul) acetaminophen 500 mg capsule 500 mg PO TID PAIN Unknown History aluminum-mag hydroxide-simethicone 10 ml PO Q4H PRN in digestion, GAS, 02/28/25 Unknown History 400 mg-400 mg-40 mg/5 mL oral susp HEARTBURN, NAUSEA (Advanced Antacid-[place]) aspirin 81 mg tablet,delayed 81 mg PO BREAKFAST ANTICO AGULANT 02/28/25 Unknown History release ceramides 1,3,6-II (CeraVe Daily 1 applic topical LAURO Y DRY SKIN 02/28/25 Unknown History Moisturizing lotion) cholecalciferol (vitamin D3) 50 50 mcg PO DAILY SUPPLE MENT 02/28/25 Unknown History mcg (2,000 unit) capsule (D3-1999) cyanocobalamin (vitamin B-12) 500 500 mcg PO DAILY ANE SORAYA 02/28/25 Unknown History mcg tablet (Vitamin B-12) rifampin 300 mg capsule 300 mg PO Q12H unknown 90 da ys 03/03/25 Unknown Rx #180 caps vancomycin 750 mg intravenous 750 mg IV Q12H infection 40 days 03/03/25 Unknown Rx solution #80 ea metoprolol tartrate 25 mg tablet 25 mg PO BID hyperten eric #0 tabs 03/05/25 Unknown Rx Allergy/AdvReac Type Severity Reaction Status Date / Time oxycodone (From Percocet) Allergy Severe Hives Verified 03/24/25 13:16 Family History Father Heart disease Surgical History History 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 alcohol intake: current alcohol intake frequency: holidays/special occasions only substance use type: does not use caffeine: Yes Type: coffee Number of servings: 2 Physical Exam Const alert and no apparent distress General Appearance: cooperative HEENT normocephalic and head/scalp atraumatic Eyes PERRL and EOMs intact bilaterally Neck supple and No nodes Resp normal air movement and clear to auscultation bilaterally Cardio regular rate and regular rhythm GI soft to palpation, non-tender and non-distended Extremity General Extremity: edema Skin Skin Narrative: Faint erythema R hip, bilateral lower legs. Neuro CN's II-XII intact bilaterally Lab / Micro Data Attestation: I reviewed the patient's lab results. 03/27/25 05:16 03/27/25 05:16 Labs: Laboratory Results - last 24 hr 03/27/25 05:16: WBC 7.8, RBC 3.15 L, Hgb 8.4 L, Hct 28.1 L, MCV 89.2, MCH 26.7 L , MCHC 29.9 L, RDW Std Deviation 59.2 H, RDW Coeff of Aleena 18.4 H, Plt Count 522 H, MPV 8.0, Immature Gran % (Auto) 0.600, Neut % (Auto) 53.9, Lymph % (Auto) 19.3, [place] % (Auto) 11.9 H, Eos % (Auto) 13.1 H, Baso % (Auto) 1.2 H, Absolute Neuts (auto) 4.2, Absolute Lymphs (auto) 1.50, Nucleated RBC % 0, Sodium 138, Potassium 4.3, Chloride 109 H, Carbon Dioxide 21.9, Anion Gap 7, BUN 10, C reatinine 0.55 L, Estim Creat Clear Calc 48.44 L, Est GFR (MDRD) Non-Af 91, BUN/Creatinine Ratio 18.7, Glucose 98, Calcium 8.1 Micro: Microbiology 03/24/25 20:11 Wound - Hip Gram Stain - Final 03/24/25 20:11 Wound - Hip Wound Culture - Final Klebsiella pneumoniae sp pneum Rhythm Strip Rhythm Strip: Sinus Rhythm Rate: 60 Ectopy: None
--- NOTE | 2025-03-27 14:59 | CASEMGMT ---
[facility]charge [facility] with request to submit for precert if they want to skill. Also asked if pt can return while precert is pending. Awaiting response. Frida Santamaria DC Planning Asst.
[2025-03-27] MEDS: MELATONIN 3 MG TABLET PO (21:01)
[2025-03-28 05:32] VITALS: BP 136/78; PULSE 82; RESP 16; TEMP 36.7; O2SAT 98
--- NOTE | 2025-03-28 07:52 | PCM.TXEXTCAR ---
Diet Diet Order/Speech Therapy: INPATIENT Hospital Diet / Speech Therapy Order(s) 03/24/25 19:00 Diet: Cardiac - Heart Healthy Food consistency:: Regular Liquid Consistency:: Regular/Thin Type of Dietary Supplement:: Ensure Plus High Protein Diet Comments: 240mL chocolate EPHP with dinner DC O2, CPAP, BIPAP needs Home O2 Discharge instructions: No Wound(s) LEFT HIP: Wound Type: Surgical Incision right hip: Wound Type: Surgical Incision Dressing Change: applied wound VAC Problem/Diagnosis (1) Infection of right prosthetic hip joint: Status: Acute Code(s): T84.51XA - Infection and inflammatory reaction due to internal right hip prosthesis, initial encounter (2) MRSA infection: Status: Acute Code(s): A49.02 - Methicillin resistant Staphylococcus aureus infection, unspecified site (3) Surgical site infection: Status: Acute Code(s): T81.49XA - Infection following a procedure, other surgical site, initial encounter Plan 84-year-old female being admitted for concern of rash possible infection at right hip surgical site. She had open reduction internal fixation of right hip fracture on 01/20/2025 and this was complicated by postop infection with removal of the prosthesis. She was on IV vancomycin and rifampin. She developed a rash over the surgical site and so rifampin was stopped about a week ago per ID. Rash has persisted therefore she was admitted #Recurrent right hip surgical site infection: Patient is being admitted on [facility] floor. ID is consulted from ER physician. Continue IV vancomycin. Orthopedic surgeon consulted. As per orthopedic surgeon note, wound VAC was not able to be placed in nursing facility. WBC is not elevated and imaging done showed partially visualized left proximal femoral endoprosthesis with interlocking screw and extensive mature callus formation with no evidence of loosening or metallic fracture. Admitted to [facility]. ED doctor spoke to ID who recommended patient continuing on IV vancomycin. ID consulted. PO tylenol, PO oxycodone and IV morphine prn for pain PT/OT consult fall precautions Wound culture on 03/02 showed MRSA. Blood culture and wound culture on 03/24 are pending. On IV vancomycin 750 mg every 12 hours. Clinically, faint rash on the right lower thigh and lower legs. 03/26: No fever. Stain present on the surgical dressing seropurulent. 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 Ceftriaxone 2 g IV daily started. Continue vancomycin. No leukocytosis. 03/27: No fever. Wound VAC present along incisional line. Wound culture growing Klebsiella pneumoniae. Continue IV ceftriaxone and vancomycin. ID consult requested. As per Ortho note, patient decided for nonoperative management with wound VAC and antibiotics. Possible discharge plan after ID recommendation of antibiotics # CAD s/p stents: On aspirin and high intensity statin #History of Parkinson's disease: on levodopa/carbidopa #Benign essential hypertension: on metoprolol. IV hydralazine as needed #History of argyria Skin on face and upper torso is carl with bluish tinge. She states this is due to ingestion of silver water about 30 years ago and the recommendation of a dietitian to help with her fibromyalgia. DVT prophylaxis: Lovenox Code status: DNRCCA no intubation as per the paperwork from the correction Allergies/Procedures Done in Hospital Allergies oxycodone (From Percocet) Allergy (Severe, Verified 03/24/25 13:16) Hives Type of Care/Length of Stay Estimated LOS: Convalescent Care Less Than 30 days Type of Care Needed: Skilled Rehab Potential: Good Prognosis: Good Additional Orders/Day of Discharge Day of Discharge: 03/28/25 Dietary and Speech Recommendations Dietitian Recommendations/Changes: Continue cardiac diet. Will order 240mL chocolate ensure plus high protein with dinner. Will monitor weight trends. Discharge Plan Admission Admit Date/Time: 03/24/25 16:54 Attending Provider: Jaylon Boone Primary Care Provider: Tressa Conn Consulting Providers: Justice Gao; Braulio Tijerina; Asya Gustafson Discharge Orders/Prescriptions Prescriptions: New vancomycin 750 mg recon soln 750 mg IV Q12H 16 Days Qty: 32 0RF Rx Instructions: stop date 04/13/25. Dx: R hip PJI. Weekly bmp, cbc, esr, and vanc trough. Fax to [phone]. amoxicillin-pot clavulanate 875-125 mg tablet 1 tab PO BID Qty: 14 0RF doxycycline hyclate 100 mg capsule 100 mg PO BID Qty: 60 2RF Rx Instructions: started on 04/14/25 once IV vancomycin is complete Continued alendronate 70 mg tablet 70 mg PO QWEEK Patient Comments: TAKES EVERY THURSDAY duloxetine 20 mg capsule,delayed release(DR/EC) 20 mg PO QDAY guaifenesin 100 mg/5 mL liquid 200 mg PO Q4H PRN (Reason: cough) simethicone [Mylanta Gas] 125 mg tablet,chewable 125 mg PO BID PRN (Reason: abdominal distention) melatonin 3 mg capsule 3 mg PO HS atorvastatin 40 mg tablet 40 mg PO QHS polyethylene glycol 3350 [ClearLax] 17 gram/dose powder 17 g PO DAILY PRN (Reason: constipation) Stacie-Mucil 3.4 gram/5.4 gram powder 1 tbsp PO DAILY PRN (Reason: CONSTIPATION) Rx Instructions: mix into at least 8 oz of water or juice before administering acetaminophen 325 mg capsule 650 mg PO Q8H PRN (Reason: fever or pain) carbidopa-levodopa [Dhivy] 25-100 mg tablet 1.5 tab PO TID mirabegron [Myrbetriq] 50 mg tablet extended release 24 hr 50 mg PO DAILY ascorbic acid (vitamin C) 500 mg capsule 500 mg PO BID Rx Instructions: GIVE WITH IRON CeraVe Daily Moisturizing Lotion 1 applic topical DAILY cyanocobalamin (vitamin B-12) [Vitamin B-12] 500 mcg tablet 500 mcg PO DAILY alum-mag hydroxide-simeth [Advanced Antacid-Antigas] 400-400-40 mg/5 mL suspension 10 ml PO Q4H PRN (Reason: indigestion, GAS, HEARTBURN, NAUSEA) cholecalciferol (vitamin D3) [D3-2000] 50 mcg (2,000 unit) capsule 50 mcg PO DAILY aspirin 81 mg Tablet,Delayed Release (Dr/Ec) 81 mg PO BREAKFAST rifampin 300 mg capsule 300 mg PO Q12H 90 Days Qty: 180 0RF metoprolol tartrate 25 mg Tablet 25 mg PO BID Qty: 0 0RF Changed ferrous sulfate [FeroSul] 325 mg (65 mg iron) tablet 325 mg PO QODAY 30 Days Qty: 15 0RF Discontinued acetaminophen [Tylenol Extra Strength] 500 mg tablet 500 mg PO Q8H PRN (Reason: pain) acetaminophen 500 mg capsule 500 mg PO TID vancomycin 750 mg recon soln 750 mg IV Q12H 40 Days Qty: 80 0RF Rx Instructions: stop date 04/13/25. Dx: R hip PJI. Weekly bmp, cbc, LFT, esr, and vanc trough. Fax to [phone]. Referrals / Follow Up: Justice Gao MD [Med Staff - Active Staff, Infectious Disease] - Within 1 Month Tressa Conn MD [Primary Care Provider, Internal Medicine] Braulio Tijerina MD [Med Staff - Active Staff, Orthopedics] - Within 2 Weeks Disposition Disposition (needs filled in before D/C Order can be placed): [facility]
[2025-03-28 08:07] VITALS: BP 144/61; PULSE 79; RESP 17; TEMP 36.3; O2SAT 100
[2025-03-28 10:08] LABS: Vancomycin, Trough Level 15.3 ug/mL (5.0-15.0)
--- NOTE | 2025-03-28 10:23 | PN.ID_ITS ---
Physical Exam Narrative Feeling ok, still c/o rash in lower legs. No fever, no n/v/d. Const alert and no apparent distress General Appearance: cooperative Resp normal air movement and clear to auscultation bilaterally Cardio regular rate and regular rhythm GI soft to palpation, non-tender and non-distended Extremity General Extremity: edema Skin Skin Narrative: mild redness BLE ID ID: Route of nutrition/ use of supplements: [] Nutritional Intake: [] IV Site: [] Willis Catheter: [] Assessment & Plan Assessment/Plan (1) Infection of right prosthetic hip joint: PLAN: MRSA R hip PJI - s/p OR for I&D by Dr. Tijerina on 03/02/25. Discharged on 6 weeks iv vanc and po rifampin. Rifampin stopped due to rash. Now with wound cx (+) klebsiella from R hip, on ceftriaxone, improving. Cont vanc/ceftriaxone, plan on discharge with IV vanc, stop date 04/13/25 and one week course po augmentin 875mg bid for klebsiella coverage. Once IV vanc completes, will need long course suppressive po doxy 100mg bid. ID followup in 3 weeks. Residual erythema in bilat lower legs appears to be related to edema, recommend leg elevation and compression stocking/DORIAN wraps. Will follow, d/w foster care case manager (2) MRSA infection: (3) Surgical site infection:
--- NOTE | 2025-03-28 10:39 | PCM.RX.CS ---
Consult Antibiotic Management Pharmacy has been consulted to manage selected antibiotic: Vancomycin Type of Intervention Type of Consult: Follow-up Labs Labs: Sodium 138 mmol/L (133-145) 03/27/25 05:16 Potassium 4.3 mmol/L (3.3-5.1) 03/27/25 05:16 Chloride 109 mmol/L (98-108) H 03/27/25 05:16 Carbon Dioxide 21.9 mmol/L (21.0-32.0) 03/27/25 05:16 Anion Gap 7 (5-15) 03/27/25 05:16 BUN 10 mg/dL (4-19) 03/27/25 05:16 Creatinine 0.55 mg/dL (0.70-1.20) L 03/27/25 05:16 Est GFR (MDRD) Non-Af 91 (>60) 03/27/25 05:16 BUN/Creatinine Ratio 18.7 RATIO (10-20) 03/27/25 05:16 Glucose 98 mg/dL (70-99) 03/27/25 05:16 Vancomycin Trough 15.3 ug/mL (5.0-15.0) H 03/28/25 09:34 Microbiology Microbiology: Microbiology 03/24/25 15:18 Blood Culture (Wb) - Left Hand Blood Culture - Preliminary No growth in 48 hours. 03/24/25 20:11 Wound - Hip Gram Stain - Final 03/24/25 20:11 Wound - Hip Wound Culture - Final Klebsiella pneumoniae sp pneum Pharmacy Plan for Drug Dosing Pharmacy Plan for Drug Dosing: VANCOMYCIN LEVEL RECEIVED Current Vancomycin Dose: 750MG Q12 Number of Doses Received: many, has been on since 02/28/25 Vancomycin Level: 15.3 mg/dL Hours Since Last Dose: 11 Renal Function: SCr 0.55 mg/dL, CrCl 48 mL/min Renal Function Trend: stable Lab/Micro: kleb in wound cx, on senior care for hip infection Vancomycin Plan/Comments: 11 hour trough is therapeutic at 15.3 mg/dL (goal 15-20). Will continue current dose and get a trough in 4 days per policy. Has had 3 troughs in range. Pending Level: 04/01/25 @ 0930 Pharmacy Service will continue to monitor and adjust dosing as required.
[2025-03-28 10:56] VITALS: PULSE 79
[2025-03-28] MEDS: Cholecalciferol (VIT D3) 25 MCG TABLET (1,000 UNITS) 50 MCG PO (10:57)
[2025-03-28] MEDS: Mineral Oil/Petrolatum Cr 1.75oz Bottle 1 APPLIC TOPICAL (10:57)
[2025-03-28] MEDS: Aspirin E.C. 81 MG Tablet PO (10:57)
[2025-03-28] MEDS: Vancomycin HCl 750 MG in 0.9% Normal Saline (250mL Bag) 250 ML 250 MG IV (10:57)
--- NOTE | 2025-03-28 11:14 | PCM.DC.SUM ---
Providers Date of Admission: 03/24/25 Date of Discharge: 03/28/25 Primary Care Physician: Dr. Tressa Conn MD Consultations 03/24/25 19:00 Consult: Infectious Disease Routine Consulting Provider: Justice Gao Reason for Consult: recurrent right hip infection EMERGENT Consult: No Notified: Yes Date Notified: 03/24/25 Time Notified: 17:00 Method of Notification: ED Physician Initiated Consult: Orthopedics Routine Consulting Provider: Braulio Tijerina Reason for Consult: recurrent infection of right hip prosthesis EMERGENT Consult: No Notified: Yes Date Notified: 03/25/25 Time Notified: 08:00 Method of Notification: Verbal 03/25/25 09:27 Consult: Onc/Wound/credit consultant Routine Comment: Sutures can be removed at time of placing VAC Reason for Consult:: Right hip drainage incision Comments:: Please place incisional wound VAC. At time of placing Reason For Visit: RECCURENT RIGHT HIP SURGICAL SITE INFECTION Diagnosis Discharge Diagnosis (1) Infection of right prosthetic hip joint: Status: Acute Code(s): T84.51XA - Infection and inflammatory reaction due to internal right hip prosthesis, initial encounter (2) MRSA infection: Status: Acute Code(s): A49.02 - Methicillin resistant Staphylococcus aureus infection, unspecified site (3) Surgical site infection: Status: Acute Code(s): T81.49XA - Infection following a procedure, other surgical site, initial encounter Plan 84-year-old female being admitted for concern of rash possible infection at right hip surgical site. She had open reduction internal fixation of right hip fracture on 01/20/2025 and this was complicated by postop infection with removal of the prosthesis. She was on IV vancomycin and rifampin. She developed a rash over the surgical site and so rifampin was stopped about a week ago per ID. Rash has persisted therefore she was admitted #Recurrent right hip surgical site infection: [facility] is being [facility]. ID is consulted from ER physician. Continue IV vancomycin. Orthopedic surgeon consulted. As per orthopedic surgeon note, wound VAC was not able to be placed in nursing facility. WBC is not elevated and imaging done showed partially visualized left proximal femoral endoprosthesis with interlocking screw and extensive mature callus formation with no evidence of loosening or metallic fracture. Admitted to [facility]. ED doctor spoke to ID who recommended patient continuing on IV vancomycin. ID consulted. PO tylenol, PO oxycodone and IV morphine prn for pain PT/OT consult fall precautions Wound culture on 03/02 showed MRSA. Blood culture and wound culture on 03/24 are pending. On IV vancomycin 750 mg every 12 hours. Clinically, faint rash on the right lower thigh and lower legs. 03/26: No fever. Stain present on the surgical dressing seropurulent. Gram stain showing 2+ GNR lactose product development specialist. Ceftriaxone 2 g IV daily started. Continue vancomycin. No leukocytosis. 03/27: No fever. Wound VAC present along incisional line. Wound culture growing Klebsiella pneumoniae. Continue IV ceftriaxone and vancomycin. ID consult requested. As per Ortho note, patient decided for nonoperative management with wound VAC and antibiotics. Possible discharge plan after ID recommendation of antibiotics 03/28: No fever. In the morning she complained of pain, 8/10 over right thigh/hip area. She used to take tramadol and not single and therefore given She is allergic to oxycodone. Antibiotics were prescribed by ID. Patient discharged to [facility] # CAD s/p stents: On aspirin and high intensity statin #History of Parkinson's disease: on levodopa/carbidopa #Benign essential hypertension: on metoprolol. IV hydralazine as needed #History of argyria Skin on face and upper torso is carl with bluish tinge. She states this is due to ingestion of silver water about 30 years ago and the recommendation of a dietitian to help with her fibromyalgia. DVT prophylaxis: Lovenox Code status: DNRCCA no intubation as per the paperwork from the [facility] Discharge medication reconciliation done. Discharge follow-up instructions completed. Discharge process discussed with the patient and all questions were answered to patient's satisfaction. Follow with PCP in 1 to 2 weeks. Discharged on vancomycin and ceftriaxone as mentioned above. Follow-up with [facility] Dr. Tijerina in 2 weeks. Total time spent, exact 35 minutes on discharge meds reconciliation, examination, coordination of care with nurses and ancillary staff, review of imaging and blood test and discussion with the patient on follow-up instructions. Medications at Discharge Home Medications acetaminophen 325 mg capsule 650 mg PO Q8H PRN fever or pain 05/01/23 atorvastatin 40 mg tablet 40 mg PO QHS hYPERLIPIDEMIA 01/19/24 polyethylene glycol 3350 17 gram/dose oral powder (ClearLax) 17 g PO DAILY PRN constipation 05/01/23 psyllium husk 3.4 gram/5.4 gram oral powder (Stacie-Mucil) 1 tbsp PO DAILY PRN CONSTIPATION 05/01/23 alendronate 70 mg tablet 70 mg PO QWEEK osteoporosis 09/27/24 duloxetine 20 mg capsule,delayed release 20 mg PO QDAY DEPRESSION 09/27/24 guaifenesin 100 mg/5 mL oral liquid 200 mg PO Q4H PRN cough 12/28/24 melatonin 3 mg capsule 3 mg PO HS sleep 12/28/24 simethicone 125 mg chewable tablet (Mylanta Gas) 125 mg PO BID PRN abdominal distention 12/28/24 ascorbic acid (vitamin C) 500 mg capsule 500 mg PO BID supplement 01/20/25 carbidopa 25 mg-levodopa 100 mg tablet (Dhivy) 1.5 tab PO TID parkinson 01/20/25 mirabegron 50 mg tablet,extended release 24 hr (Myrbetriq) 50 mg PO DAILY bladder 01/20/25 aluminum-mag hydroxide-simethicone 400 mg-400 mg-40 mg/5 mL oral susp (Advanced Antacid-Antigas) 10 ml PO Q4H PRN indigestion, GAS, HEARTBURN, NAUSEA 02/28/25 aspirin 81 mg tablet,delayed release 81 mg PO BREAKFAST ANTICOAGULANT 02/28/25 ceramides 1,3,6-II (CeraVe Daily Moisturizing lotion) 1 applic topical DAILY DRY SKIN 02/28/25 cholecalciferol (vitamin D3) 50 mcg (2,000 unit) capsule (D3-2000) 50 mcg PO DAILY SUPPLEMENT 02/28/25 cyanocobalamin (vitamin B-12) 500 mcg tablet (Vitamin B-12) 500 mcg PO DAILY ANEMIA 02/28/25 rifampin 300 mg capsule 300 mg PO Q12H unknown 90 days #180 caps 03/03/25 metoprolol tartrate 25 mg tablet 25 mg PO BID hypertension #0 tabs 03/05/25 amoxicillin 875 mg-potassium clavulanate 125 mg tablet 1 tab PO BID #14 tabs 03/28/25 doxycycline hyclate 100 mg capsule 100 mg PO BID #60 caps 03/28/25 ferrous sulfate 325 mg (65 mg iron) tablet (FeroSul) 325 mg PO QODAY ANEMIA 30 days #15 tabs 03/28/25 vancomycin 750 mg intravenous solution 750 mg IV Q12H 16 days #32 ea 03/28/25 Physical Exam Narrative Seen and examined Wound VAC was applied Complaining of pain over right hip and bilateral lower legs. Physical exam General: Alert, Oriented x3, Cooperative HEENT: Atraumatic, PERRLA, EOMI, Normocephalic. Oral: No Gingival or Mucosal Lesions/ Ulcerations Neck: Supple, No JVD, Negative Carotid Bruits Chest wall/Lungs: Air entry equal in bilateral lung bases. No crepitation/rhonchi Cardiovascular: Regular rate and rhythm, Normal S1,S2, No M/G/R Abdomen: Bowel Sounds Present, Soft, Non Tender, Non-Distended : No dysuria. No renal angle tenderness. No suprapubic tenderness. Extremities: Right hip operative region subcutaneous edema, Capillary Refill Less than 3 Seconds Skin: Wound VAC present around right hip operative region/incisional line. Residual redness patient over right thigh and leg. Musculoskeletal: Mild tenderness present over right hip operative region, subcutaneous edema. Mild bilateral lower leg edema Neurological: Cranial nerves II-XII grossly intact, DTR 2+/4. No acute focal neurological deficit. Psych/Mental Status: Flat affect Weight / BMI Weight Weight: 157 lb 6.561 oz Body Mass Index (BMI) 28.8 ABG / Lab / Microbiology Data 03/27/25 05:16 03/27/25 05:16 Laboratory: Laboratory Results - last 24 hr 03/28/25 09:34: Vancomycin Trough 15.3 H Microbiology: Microbiology 03/24/25 15:18 Blood Culture (Wb) - Left Hand Blood Culture - Preliminary No growth in 48 hours. 03/24/25 20:11 Wound - Hip Gram Stain - Final 03/24/25 20:11 Wound - Hip Wound Culture - Final Klebsiella pneumoniae sp pneum D/C Instructions DC O2, CPAP, BIPAP Needs Home O2 Discharge instructions: No Meaningful Use Info Meaningful Use Meaningful Use Diagnoses (Choose all that apply): None applicable Discharge Plan Admission Admit Date/Time: 03/24/25 16:54 Attending Provider: Jaylon Boone Primary Care Provider: Tressa Conn Consulting Providers: Justice Gao; Braulio Tijerina; Asya Gustafson Discharge Orders/Prescriptions Prescriptions: New vancomycin 750 mg recon soln 750 mg IV Q12H 16 Days Qty: 32 0RF Rx Instructions: stop date 04/13/25. Dx: R hip PJI. Weekly bmp, cbc, esr, and vanc trough. Fax to [phone]. amoxicillin-pot clavulanate 875-125 mg tablet 1 tab PO BID Qty: 14 0RF doxycycline hyclate 100 mg capsule 100 mg PO BID Qty: 60 2RF Rx Instructions: started on 04/14/25 once IV vancomycin is complete Continued alendronate 70 mg tablet 70 mg PO QWEEK Patient Comments: TAKES EVERY THURSDAY duloxetine 20 mg capsule,delayed release(DR/EC) 20 mg PO QDAY guaifenesin 100 mg/5 mL liquid 200 mg PO Q4H PRN (Reason: cough) simethicone [Mylanta Gas] 125 mg tablet,chewable 125 mg PO BID PRN (Reason: abdominal distention) melatonin 3 mg capsule 3 mg PO HS atorvastatin 40 mg tablet 40 mg PO QHS polyethylene glycol 3350 [ClearLax] 17 gram/dose powder 17 g PO DAILY PRN (Reason: constipation) Stacie-Mucil 3.4 gram/5.4 gram powder 1 tbsp PO DAILY PRN (Reason: CONSTIPATION) Rx Instructions: mix into at least 8 oz of water or juice before administering acetaminophen 325 mg capsule 650 mg PO Q8H PRN (Reason: fever or pain) carbidopa-levodopa [Dhivy] 25-100 mg tablet 1.5 tab PO TID mirabegron [Myrbetriq] 50 mg tablet extended release 24 hr 50 mg PO DAILY ascorbic acid (vitamin C) 500 mg capsule 500 mg PO BID Rx Instructions: GIVE WITH IRON CeraVe Daily Moisturizing Lotion 1 applic topical DAILY cyanocobalamin (vitamin B-12) [Vitamin B-12] 500 mcg tablet 500 mcg PO DAILY alum-mag hydroxide-simeth [Advanced Antacid-Antigas] 400-400-40 mg/5 mL suspension 10 ml PO Q4H PRN (Reason: indigestion, GAS, HEARTBURN, NAUSEA) cholecalciferol (vitamin D3) [D3-2000] 50 mcg (2,000 unit) capsule 50 mcg PO DAILY aspirin 81 mg Tablet,Delayed Release (Dr/Ec) 81 mg PO BREAKFAST rifampin 300 mg capsule 300 mg PO Q12H 90 Days Qty: 180 0RF metoprolol tartrate 25 mg Tablet 25 mg PO BID Qty: 0 0RF Changed ferrous sulfate [FeroSul] 325 mg (65 mg iron) tablet 325 mg PO QODAY 30 Days Qty: 15 0RF Discontinued acetaminophen [Tylenol Extra Strength] 500 mg tablet 500 mg PO Q8H PRN (Reason: pain) acetaminophen 500 mg capsule 500 mg PO TID vancomycin 750 mg recon soln 750 mg IV Q12H 40 Days Qty: 80 0RF Rx Instructions: stop date 04/13/25. Dx: R hip PJI. Weekly bmp, cbc, LFT, esr, and vanc trough. Fax to [phone]. Referrals / Follow Up: Justice Gao MD [Med Staff - Active Staff, Infectious Disease] - Within 1 Month Tressa Conn MD [Primary Care Provider, Internal Medicine] Braulio Tijerina MD [Med Staff - Active Staff, Orthopedics] - Within 2 Weeks Disposition Disposition (needs filled in before D/C Order can be placed): [facility] Facility Charges/Coding Visit Charges Inpatient E&M: 47259 Disch Hosp >30min
--- NOTE | 2025-03-28 11:51 | PHA.DC.MR.R ---
Pharmacy [place] Med Reconciliation Pharmacy Service has performed discharge medication reconciliation for this patient. The patient's discharge medication list was reviewed for discrepancies and discrepancies were resolved. Medications at Discharge Home Medications acetaminophen 325 mg capsule 650 mg PO Q8H PRN fever or pain 05/01/23 atorvastatin 40 mg tablet 40 mg PO QHS hYPERLIPIDEMIA 05/01/23 polyethylene glycol 3350 17 gram/dose oral powder (ClearLax) 17 g PO DAILY PRN constipation 05/01/23 psyllium husk 3.4 gram/5.4 gram oral powder (Stacie-Mucil) 1 tbsp PO DAILY PRN CONSTIPATION 05/01/23 alendronate 70 mg tablet 70 mg PO QWEEK osteoporosis 09/27/24 duloxetine 20 mg capsule,delayed release 20 mg PO QDAY DEPRESSION 09/27/24 guaifenesin 100 mg/5 mL oral liquid 200 mg PO Q4H PRN cough 12/28/24 melatonin 3 mg capsule 3 mg PO HS sleep 12/28/24 simethicone 125 mg chewable tablet (Mylanta Gas) 125 mg PO BID PRN abdominal distention 12/28/24 ascorbic acid (vitamin C) 500 mg capsule 500 mg PO BID supplement 01/20/25 carbidopa 25 mg-levodopa 100 mg tablet (Dhivy) 1.5 tab PO TID parkinson 01/20/25 mirabegron 50 mg tablet,extended release 24 hr (Myrbetriq) 50 mg PO DAILY bladder 01/20/25 aluminum-mag hydroxide-simethicone 400 mg-400 mg-40 mg/5 mL oral susp (Advanced Antacid-Antigas) 10 ml PO Q4H PRN indigestion, GAS, HEARTBURN, NAUSEA 02/28/25 aspirin 81 mg tablet,delayed release 81 mg PO BREAKFAST ANTICOAGULANT 02/28/25 ceramides 1,3,6-II (CeraVe Daily Moisturizing lotion) 1 applic topical DAILY DRY SKIN 02/28/25 cholecalciferol (vitamin D3) 50 mcg (2,000 unit) capsule (D3-2000) 50 mcg PO DAILY SUPPLEMENT 02/28/25 cyanocobalamin (vitamin B-12) 500 mcg tablet (Vitamin B-12) 500 mcg PO DAILY ANEMIA 02/28/25 rifampin 300 mg capsule 300 mg PO Q12H unknown 90 days #180 caps 03/03/25 metoprolol tartrate 25 mg tablet 25 mg PO BID hypertension #0 tabs 03/05/25 amoxicillin 875 mg-potassium clavulanate 125 mg tablet 1 tab PO BID #14 tabs 03/28/25 doxycycline hyclate 100 mg capsule 100 mg PO BID #60 caps 03/28/25 ferrous sulfate 325 mg (65 mg iron) tablet (FeroSul) 325 mg PO QODAY ANEMIA 30 days #15 tabs 03/28/25 vancomycin 750 mg intravenous solution 750 mg IV Q12H 16 days #32 ea 03/28/25
[2025-03-28] MEDS: Ceftriaxone 2 GM in 0.9% Normal Saline (50mL MB+) 50 ML IV (12:08)
--- NOTE | 2025-03-28 12:10 | CASEMGMT ---
Discharge Planning Discharge orders, IV scripts, signed med list and oxy script, wound notes, and transport time sent via [facility] to [facility]. Physicians will transport pt by wheelchair at 1:30. Nursing, SW, pt, and her daughter/HC POA ([place]) updated. Frida Santamaria DC Planning Asst.
== END 2025-03-28 13:42 | disposition skilled nursing facility (03) | DRG 561 ==
LOC: ED 16:48 → MS3 17:24
PROVIDERS: Admitting Provider Student in an Organized Health Care Education/Training Program; Emergency Provider Emergency Medicine; PCP Internal Medicine Geriatric Medicine; Visit Provider Internal Medicine
DX: T84.51XA Infection and inflammatory reaction due to internal right hip prosthesis, initial encounter (principal); B96.1 Klebsiella pneumoniae [K. pneumoniae] as the cause of diseases classified elsewhere; Z66 Do not resuscitate; G20.A1 Parkinson's disease without dyskinesia, without mention of fluctuations; I10 Essential (primary) hypertension; I25.10 Atherosclerotic heart disease of native coronary artery without angina pectoris; E78.5 Hyperlipidemia, unspecified; M79.7 Fibromyalgia; I25.2 Old myocardial infarction; B95.62 Methicillin resistant Staphylococcus aureus infection as the cause of diseases classified elsewhere; X58.XXXA Exposure to other specified factors, initial encounter; Z95.5 Presence of coronary angioplasty implant and graft; Z79.2 Long term (current) use of antibiotics; Z79.82 Long term (current) use of aspirin; Z79.83 Long term (current) use of bisphosphonates; Z79.899 Other long term (current) drug therapy; Z87.891 Personal history of nicotine dependence
CPT/HCPCS: 36415; 36592; 71045; 73502; 80048; 80053; 80202; 81001; 83605; 85025; 85610; 85730; 87040; 87070; 87077; 87186; 87205; 93005; 97116; 97162; 97166; 97530; 97535; 97802; 99285; A4216; J0696

== ENCOUNTER 2025-04-07 11:58 | Inpatient (IN) | payer MEDICARE, MEDICAID, SELFPAY ==
[2025-04-07] VITALS (14 sets, daily range): BP systolic 115–146; BP diastolic 54–88; PULSE 77–146; RESP 16–22; TEMP 36.6–37.1; O2SAT 91–100; BMI 35.9; BMI 35.6
--- NOTE | 2025-04-07 12:18 | EKG12_ITS ---
Test Reason : SOB Blood Pressure : */* mmHG Vent. Rate : 77 BPM Atrial Rate : 77 BPM P-R Int : 146 ms QRS Dur : 68 ms QT Int : 370 ms P-R-T Axes : 61 34 44 degrees QTcB Int : 418 ms Normal sinus rhythm Normal ECG Confirmed by Stephan Hayden ([id number]), market editor GRAEME TAPIA ([id number]) on 04/11/2025 6:15:30 AM Referred By: Confirmed By: Stephan Hayden
[2025-04-07 12:45] LABS: Hematocrit 29.5 % (37-47); Hemoglobin 9.0 g/dL (12.0-15.0); Mean Corp Hgb Conc 30.5 g/dL (32-36); Mean Corpuscular Volume 84.0 fL (81-99); Mean Platelet Vol. 7.6 fl (6.2-12.0); NRBC Flagged by Analyzer 0 % (0-5); Platelet Count 418 K/mm3 (150-450); RBC Distribution Width CV 17.2 % (11.6-14.6); RBC Distribution Width SD 53.1 fl (35.1-43.9); Red Blood Count 3.51 M/mm3 (4.2-5.4); White Blood Count 13.4 K/mm3 (4.4-11.0)
--- OUTSIDE RECORDS SUMMARY | 2025-04-07 12:45 | XMS RPT_ITS | CCD ---
Author Organization [facility] Care Team Providers Care Reflesher Name Role Phone Unavailable Primary Care Provider Minesh Arreguin SENIOR NET SOFTWARE DEVELOPER.BIOLOGY LECTURER, Alexandra L Primary Care Provide r Rodríguez BEATER HEAD, BEATER HEAD-C Alexandra Primary Care Provider Rodríguez BEATER HEAD, BEATER HEAD-C Alexandra Referring Provider [phone] Dr. Danielle Vernon Attending Provider Dr. Law Gold Emergency Provider Dr. Jasmin Steele Admit Provider Dr. Jasmin Steele Other Provider Dr. Davian Grier Other Provider Dr. Darline Lundy Attending Provider Dr. Darline Lundy Other Provider Dr. Jaylon Boone Attending Provider Rodríguez BEATER HEAD, BEATER HEAD-C Alexandra Primary Care Provider Dr. Law Gold Emergency Provider Dr. Jasmin Steele Admit Provider Dr. Jasmin Steele Other Provider Dr. Davian Grier Other Provider Dr. Darline Lundy Attending Provider Dr. Darline Lundy Other Provider Dr. Jaylon Boone Attending Provider Rodríguez STEWART.BIOLOGY LECTURER, Alexandra L Primary Care Provide r TAI, DIDI Referring Unavailable ARREGUIN, ALEXANDRA L Primary Care Unavailable TAI, DIDI Referring Unavailable ARREGUIN, ALEXANDRA L Primary Care Unavailable TAI, DIDI Referring Unavailable ARREGUIN, ALEXANDRA L Primary Care Unavailable PROVIDER, UNKNOWN Referring Unavailable ARREGUIN, ALEXANDRA L Primary Care Unavailable Arreguin BEATER HEAD-C, Alexandra Primary Care Provider Arreguin BEATER HEAD-C, Alexandra Referring Provider Saulo DEL RIO, Dr. Santos Attending Provider Tai BEATER HEAD-C, Didi Attending Provider Tai BEATER HEAD-C, Didi Referring Provider Bobby OLS, [facility] Primary Care Provider Shavonne vailable Tai BEATER HEAD-C, Didi Attending Provider Tai BEATER HEAD-C, Didi Referring Provider Bobby OLS, Tressa Primary Care Provider Shavonne vailable Bobby HALL, [facility] Referring Provider Dr. Danielle Arciniega MD Attending Provider Bobby HALL, Tressa Primary Care Provider Shavonne vailaDr. Danielle Phillips MD Referring Provider Dr. Danielle Vernon MD Other Provider Bobby HALL [facility] Primary Care Physician Un available Saulo [...] Lilliana DEL RIO, Dr. Ramsey Nurse Practitioner [phone] Robin DEL RIO, Dr. Davian Richards Attending Physician Kamron DEL RIO, Dr. Gregorio Nurse Practitioner [phone] Martel DO, Dr. Rothman Attending Physician Shavonne vailable Robin DEL RIO, Dr. Davian Richards Nurse Practitioner Davian Kelly Attending Unavailable Braulio Tijerina Consulting Unavailable Bobby OLS, Tressa Primary Care Unavailab Stephan Urrutia Admitting Unavailable Stephan Martel Consulting Unavailable Darline Lundy Consulting Unavailable Davian Kelly Consulting Unavailable Tai BEATER HEAD, Didi Referring Unavailable Tai BEATER HEAD, Didi Attending Unavailable Bobby OLS, Tressa Primary [...] Prado Attending Unavailable SauloDanielle Attending Unavailable Rodríguez BEATER HEAD, Alexandra Primary Care Unavailable Rodríguez BEATER HEAD, Alexandra Referring Unavailable Danielle Vernon Attending Unavailable Bobby OLS, Tressa Referring Unavailab le Bobby OLS, Tressa Primary Care Unavailab le Bobby OLS, Tressa Referring Unavailab le Bobby OLS, Tressa Primary Care Unavailab Alexandria Prado Attending Unavailable Stephan Martel Attending Unavailable SauloDanielle Attending Unavailable Bobby OLS, Tressa Primary [facility] Unavailab le Danielle Vernon Consulting Unavailable Danielle Vernon Referring Unavailable Danielle Vernon Attending Unavailable Tressa Alan Primary [facility] Unavailab le Allergies Allergy Classification Reported Allergen(s) Allergy Type Date of Onset Reaction(s) Facility Acetaminophen / oxyCODONE (1 source) Acetaminophen / oxyCODONE; Translations: [OXYCODONE-ACETAM INOPHEN] Drug Allergy 3 [facility] (20 sources) Acetaminophen / oxyCODONE; Translations: [OXYCODONE-ACETAM INOPHEN] Drug Allergy 3 Rash, Itching [facility] (8 sources) oxyCODONE Drug Allergy 3 [facility] (4 sources) ARIPiprazole; Translations: [ARIPIPRAZOLE] Drug Allergy 5 [facility] (4 sources) Haloperidol; Translations: [HALOPERIDOL] Drug Allergy 5 [facility] (4 sources) Metoclopramide; Translations: [METOCLOPRAMIDE] Drug Allergy 5 [facility] (4 sources) Prochlorperazine; Translations: [PROCHLORPERAZINE ] Drug Allergy 5 [facility] (4 sources) Promethazine; Translations: [PROMETHAZINE] Drug Allergy 5 [facility] (1 source) OLANZapine; Translations: [OLANZAPINE] Drug Allergy 5 [facility] (1 source) oxyCODONE Drug Allergy 5 [facility] Repository Medications Current Medications Medication [...] Bisphosphonate Start: 09-27-2024 take 1 tablet by iibs th every week Start: 09-16-2023 End: 03-16-2024 take 1 tablet by mouth every week Alendronate 70 mg tablet Discontinued 70 mg PO EVERY WEEK September 16, 2023 12:00am March 16, 2024 10:31am ascorbic acid 500 mg oral capsule (20 sources) Vitamin C Start: 01-20-2025 take 1 capsule by mo [facility] once daily Start: 05-01-2023 End: 03-16-2024 take [...] Start: 12-29-2022 take 2 tablets by mo [facility] three times daily Carbidopa-Levodopa Active 2 TABLET [...] Comment on above: Take 1 tablet by [facility] four times daily. Take 4 [...] Start: 01-20-2025 take 1 capsule by mo [facility] once daily Start: 12-28-2024 End: 01-20-2025 Mecobalamin [...] reveals residual T wave inversion from recent AR Coronary atherosclerosis and other heart disease (20 sources) Coronary arteriosclerosis; Translations: [Atherosclerotic heart disease of [place] coronary artery without angina pectoris] Onset: 07-31-2022 10-09-2022 Chronic Coronary atherosclerosis and other heart disease (20 sources) Stented coronary artery; Translations: [Presence of coronary angioplasty implant and graft] Onset: 12-12-2021 07-25-2022 Episodic Comment on above: PTCA/FLOYD Mid-distal RCA-PCI/FLOYD [id number] @ [facility] 12/22/21; Prox/distal RCA 2.5x30mm and 2.5x12mm @ [facility], [place] 12/20/09 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 Alexandria Lion i, MD Age/Sex: 84/F Location: [facility] Status: Signed Intake Vital Signs 12/28/24 13:11 01/20/25 01:17 02/15/25 09:47 Height 5 ft 2 in 5 ft 2 in 5 ft 2 in Weight: 166 lb 14 oz BMI 30.5 BP 130/75 H Pulse 75 Intake Visit Reasons: 4wk MED F/U Chief Complaint: myrbetriq follow up Costume Design Teacher Required: No Accompanied by: health aid Is [...] is afraid to stand on her own. 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 Normal [facility] Basic Metabolic Profile (BMP )on 01-27-2025 BUN Normal 07-30 [facility] Comment on above: Result Comment: Supa eubanks via OM: Ordered Performed By: #### L 503.0106, BTS, L500.4050, L100.0100, [id number] #### [facility] [address] [place], [address] BUN/CRE Normal 01-30 [facility] Comment on above: Result Comment: Supa eubanks via OM: Ordered Performed By: #### L 503.0106, BTS, L500.4050, L100.0100, [id number] #### [facility] [address] [place], [address] Calcium Normal 7.6-11.0 [facility] Comment on above: Result Comment: Canc elled via OM: MD Ordered Performed By: #### L 503.0106, BTS, L500.4050, L100.0100, [id number] #### [facility] [address] [place], [address] CL Normal 98-108 [facility] Comment on above: Result Comment: Canc elled via OM: MD Ordered Performed By: #### L 503.0106, BTS, L500.4050, L100.0100, [id number] #### [facility] [address] [place], [address] CO2 Normal 21.0-32.0 [facility] Comment on above: Result Comment: Canc elled via OM: MD Ordered Performed By: #### L 503.0106, BTS, L500.4050, L100.0100, [id number] #### [facility] [address] [place], [address] CREAT,SERUM Normal 0.70-1.20 [facility] Comment on above: Result Comment: Canc elled via OM: MD Ordered Performed By: #### L 503.0106, BTS, L500.4050, L100.0100, [id number] #### [facility] [address] [place], [address] eGFR Normal >60 [facility] Comment on above: Result Comment: Canc elled via OM: MD Ordered Performed By: #### L 503.0106, BTS, L500.4050, L100.0100, [id number] #### [facility] [address] [place], [address] GAP Normal 5-15 [facility] Comment on above: Result Comment: Canc elled via OM: MD Ordered Performed By: #### L 503.0106, BTS, L500.4050, L100.0100, [id number] #### [facility] [address] [place], [address] GLU Normal 70-99 [facility] Comment on above: Result Comment: Canc elled via OM: MD Ordered Performed By: #### L 503.0106, BTS, L500.4050, L100.0100, [id number] #### [facility] [address] [place], [address] Potassium Normal 3.3-5.1 [facility] Comment on above: Result Comment: Canc elled via OM: MD Ordered Performed By: #### L 503.0106, BTS, L500.4050, L100.0100, [id number] #### [facility] [address] [place], [address] Basic Metabolic Profile (BMP) Normal 133-145 [facility] Comment on above: Result Comment: Canc elled via OM: MD Ordered Performed By: #### L 503.0106, BTS, L500.4050, L100.0100, [id number] #### [facility] [address] [place], [address] CBC-Complete Blood Cnt No Di ffon 01-27-2025 HCT Normal 37-47 [facility] Comment on above: Result Comment: Canc elled via OM: Order cancelled - Patient discharged Performed By: #### L 503.0106, BTS, L500.4050, L100.0100, [id number] #### [facility] [address] [place], [address] HGB Normal 12.0-15.0 [facility] Comment on above: Result Comment: Canc elled via OM: Order cancelled - Patient discharged Performed By: #### L 503.0106, BTS, L500.4050, L100.0100, [id number] #### [facility] [address] [place], [address] MCH Normal 27.0-32.0 [facility] Comment on above: Result Comment: Canc elled via OM: Order cancelled - Patient discharged Performed By: #### L 503.0106, BTS, L500.4050, L100.0100, [id number] #### [facility] [address] [place], [address] MCHC Normal 32-36 [facility] Comment on above: Result Comment: Canc elled via OM: Order cancelled - Patient discharged Performed By: #### L 503.0106, BTS, L500.4050, L100.0100, [id number] #### [facility] [address] [place], [address] MCV Normal 81-99 [facility] Comment on above: Result Comment: Canc elled via OM: Order cancelled - Patient discharged Performed By: #### L 503.0106, BTS, L500.4050, L100.0100, [id number] #### [facility] [address] [place], [address] PLT Normal 150-450 [facility] Comment on above: Result Comment: Canc elled via OM: Order cancelled - Patient discharged Performed By: #### L 503.0106, BTS, L500.4050, L100.0100, [id number] #### [facility] [address] [place], [address] RBC Normal 4.2-5.4 [facility] Comment on above: Result Comment: Canc elled via OM: Order cancelled - Patient discharged Performed By: #### L 503.0106, BTS, L500.4050, L100.0100, [id number] #### [facility] [address] [place], [address] RDW CV Normal 11.6-14.6 [facility] Comment on above: Result Comment: Canc elled via OM: Order cancelled - Patient discharged Performed By: #### L 503.0106, BTS, L500.4050, L100.0100, [id number] #### [facility] [address] [place], [address] RDW SD Normal 35.1-43.9 [facility] Comment on above: Result Comment: Canc elled via OM: Order cancelled - Patient discharged Performed By: #### L 503.0106, BTS, L500.4050, L100.0100, [id number] #### [facility] [address] [place], [address] WBC Normal 4.4-11.0 [facility] Comment on above: Result Comment: Canc elled via OM: Order cancelled - Patient discharged Performed By: #### L 503.0106, BTS, L500.4050, L100.0100, [id number] #### [facility] [address] [place], [address] Surgical pathology reportOrd ered By: Debbie Corea on 01-27-2025 Surgical pathology study [facility] Basic Metabolic Profile (BMP )on 01-26-2025 BUN Normal 4-19 [facility] Comment on above: Result Comment: Canc elled via OM: MD Ordered Performed By: #### L 503.0106, BTS, L500.4050, L100.0100, [id number] #### [facility] [address] [place], [address] BUN/CRE Normal 10-20 [facility] Comment on above: Result Comment: Canc elled via OM: MD Ordered Performed By: #### L 503.0106, BTS, L500.4050, L100.0100, [id number] #### [facility] [address] [place], [address] Calcium Normal 7.6-11.0 [facility] Comment on above: Result Comment: Canc elled via OM: MD Ordered Performed By: #### L 503.0106, BTS, L500.4050, L100.0100, [id number] #### [facility] [address] [place], [address] CL Normal 98-108 [facility] Comment on above: Result Comment: Canc elled via OM: MD Ordered Performed By: #### L 503.0106, BTS, L500.4050, L100.0100, [id number] #### [facility] [address] [place], [address] CO2 Normal 21.0-32.0 [facility] Comment on above: Result Comment: Canc elled via OM: MD Ordered Performed By: #### L 503.0106, BTS, L500.4050, L100.0100, [id number] #### [facility] [address] [place], [address] CREAT,SERUM Normal 0.70-1.20 [facility] Comment on above: Result Comment: Canc elled via OM: MD Ordered Performed By: #### L 503.0106, BTS, L500.4050, L100.0100, [id number] #### [facility] [address] [place], [address] eGFR Normal >60 [facility] Comment on above: Result Comment: Canc elled via OM: MD Ordered Performed By: #### L 503.0106, BTS, L500.4050, L100.0100, [id number] #### [facility] [address] [place], [address] GAP Normal 5-15 [facility] Comment on above: Result Comment: Canc elled via OM: MD Ordered Performed By: #### L 503.0106, BTS, L500.4050, L100.0100, [id number] #### [facility] [address] [place], [address] GLU Normal 70-99 [facility] Comment on above: Result Comment: Canc elled via OM: MD Ordered Performed By: #### L 503.0106, BTS, L500.4050, L100.0100, [id number] #### [facility] [address] [place], [address] Potassium Normal 3.3-5.1 [facility] Comment on above: Result Comment: Canc elled via OM: MD Ordered Performed By: #### L 503.0106, BTS, L500.4050, L100.0100, [id number] #### [facility] [address] [place], [address] Basic Metabolic Profile (BMP) Normal 133-145 [facility] Comment on above: Result Comment: Canc elled via OM: MD Ordered Performed By: #### L 503.0106, BTS, L500.4050, L100.0100, [id number] #### [facility] [address] [place], [address] CBC-Complete Blood Cnt No Di ffon 01-26-2025 HCT Normal 37-47 [facility] Comment on above: Result Comment: Canc elled via OM: Order cancelled - Patient discharged Performed By: #### L 503.0106, BTS, L500.4050, L100.0100, [id number] #### [facility] [address] [place], [address] HGB Normal 12.0-15.0 [facility] Comment on above: Result Comment: Canc elled via OM: Order cancelled - Patient discharged Performed By: #### L 503.0106, BTS, L500.4050, L100.0100, [id number] #### [facility] [address] [place], [address] MCH Normal 27.0-32.0 [facility] Comment on above: Result Comment: Canc elled via OM: Order cancelled - Patient discharged Performed By: #### L 503.0106, BTS, L500.4050, L100.0100, [id number] #### [facility] [address] [place], [address] MCHC Normal 32-36 [facility] Comment on above: Result Comment: Canc elled via OM: Order cancelled - Patient discharged Performed By: #### L 503.0106, BTS, L500.4050, L100.0100, [id number] #### [facility] [address] [place], [address] MCV Normal 81-99 [facility] Comment on above: Result Comment: Canc elled via OM: Order cancelled - Patient discharged Performed By: #### L 503.0106, BTS, L500.4050, L100.0100, [id number] #### [facility] [address] [place], [address] PLT Normal 150-450 [facility] Comment on above: Result Comment: Canc elled via OM: Order cancelled - Patient discharged Performed By: #### L 503.0106, BTS, L500.4050, L100.0100, [id number] #### [facility] [address] [place], [address] RBC Normal 4.2-5.4 [facility] Comment on above: Result Comment: Canc elled via OM: Order cancelled - Patient discharged Performed By: #### L 503.0106, BTS, L500.4050, L100.0100, [id number] #### [facility] [address] [place], [address] RDW CV Normal 11.6-14.6 [facility] Comment on above: Result Comment: Canc elled via OM: Order cancelled - Patient discharged Performed By: #### L 503.0106, BTS, L500.4050, L100.0100, [id number] #### [facility] [address] [place], [address] RDW SD Normal 35.1-43.9 [facility] Comment on above: Result Comment: Canc elled via OM: Order cancelled - Patient discharged Performed By: #### L 503.0106, BTS, L500.4050, L100.0100, [id number] #### [facility] [address] [place], [address] WBC Normal 4.4-11.0 [facility] Comment on above: Result Comment: Canc elled via OM: Order cancelled - Patient discharged Performed By: #### L 503.0106, BTS, L500.4050, L100.0100, [id number] #### [facility] [address] [place], [address] Basic Metabolic Profile (BMP )on 01-25-2025 BUN Normal -19 [facility] Comment on above: Result Comment: Canc elled via OM: MD Ordered Performed By: #### L 500.2500, L100.0500 #### [facility] [address] [place], [address] BUN/CRE Normal - [facility] Comment on above: Result Comment: Canc elled via OM: MD Ordered Performed By: #### L 500.2500, L100.0500 #### [facility] [address] [place], [address] Calcium Normal 7.6-11.0 [facility] Comment on above: Result Comment: Canc elled via OM: MD Ordered Performed By: #### L 500.2500, L100.0500 #### [facility] [address] [place], [address] CL Normal 98-108 [facility] Comment on above: Result Comment: Canc elled via OM: MD Ordered Performed By: #### L 500.2500, L100.0500 #### [facility] [address] [place], [address] CO2 Normal 21.0-32.0 [facility] Comment on above: Result Comment: Canc elled via OM: MD Ordered Performed By: #### L 500.2500, L100.0500 #### [facility] [address] [place], [address] CREAT,SERUM Normal 0.70-1.20 [facility] Comment on above: Result Comment: Canc elled via OM: MD Ordered Performed By: #### L 500.2500, L100.0500 #### [facility] [address] [place], [address] eGFR Normal >60 [facility] Comment on above: Result Comment: Canc elled via OM: MD Ordered Performed By: #### L 500.2500, L100.0500 #### [facility] [address] [place], [address] GAP Normal 5-15 [facility] Comment on above: Result Comment: Canc elled via OM: MD Ordered Performed By: #### L 500.2500, L100.0500 #### [facility] [address] [place], [address] GLU Normal 70-99 [facility] Comment on above: Result Comment: Canc elled via OM: MD Ordered Performed By: #### L 500.2500, L100.0500 #### [facility] [address] [place], [address] Potassium Normal 3.3-5.1 [facility] Comment on above: Result Comment: Canc elled via OM: MD Ordered Performed By: #### L 500.2500, L100.0500 #### [facility] [address] [place], [address] Basic Metabolic Profile (BMP) Normal 133-145 [facility] Comment on above: Result Comment: Canc elled via OM: MD Ordered Performed By: #### L 500.2500, L100.0500 #### [facility] [address] [place], [address] CBC-Complete Blood Cnt No Di ffon 01-25-2025 Erythrocyte distribution width (RBC) [Ratio] 13.2 % Normal 11.6-14.6 [facility] Comment on above: Performed By: #### L 500.2500, L100.0500 #### [facility] [address] [place], [address] Hematocrit (Bld) [Volume fraction] 24.9 % Low 37-47 [facility] Comment on above: Performed By: #### L 500.2500, L100.0500 #### [facility] [address] [place], [address] Hemoglobin (Bld) [Mass/Vol] 8.4 g/dL Low 12.0-15.0 [facility] Comment on above: Performed By: #### L 500.2500, L100.0500 #### [facility] [address] [place], [address] MCH (RBC) [Entitic mass] 27.9 pg Normal 27.0-32.0 [facility] Comment on above: Performed By: #### L 500.2500, L100.0500 #### [facility] [address] [place], [address] MCHC (RBC) [Mass/Vol] 33.7 g/dL Normal 32-36 [facility] Comment on above: Performed By: #### L 500.2500, L100.0500 #### [facility] [address] [place], [address] MCV (RBC) [Entitic vol] 82.7 fL Normal 81-99 [facility] Comment on above: Performed By: #### L 500.2500, L100.0500 #### [facility] [address] [place], [address] Platelet mean volume (Bld) [Entitic vol] 8.7 fL Normal 6.2-12.0 [facility] Comment on above: Performed By: #### L 500.2500, L100.0500 #### [facility] [address] [place], [address] Platelets (Bld) [#/Vol] 362 10*3/uL Normal 150-450 [facility] Comment on above: Performed By: #### L 500.2500, L100.0500 #### [facility] [address] [place], [address] RBC (Bld) [#/Vol] 3.01 10*6/uL Low 4.2-5.4 [facility] Comment on above: Performed By: #### L 500.2500, L100.0500 #### [facility] [address] [place], [address] RDW SD 40.2 fl Normal 35.1-43.9 [facility] Comment on above: Performed By: #### L 500.2500, L100.0500 #### [facility] [address] [place], [address] WBC (Bld) [#/Vol] 8.6 10*3/uL Normal 4.4-11.0 [facility] Comment on above: Performed By: #### L 500.2500, L100.0500 #### [facility] [address] [place], [address] COVID 19 AG RAPID (AUGUSTIN Carlson)on 01-25-2025 SARS-CoV-2 (COVID-19) RNA DESHAUN+probe Ql (Unsp spec) SARS-CoV-2 (COVID 19) Negative RAPID METHOD BinaxNow COVID19 Ag Card Normal [facility] Comment on above: Performed By: #### L 503.0106, BTS, L500.4050, L100.0100, L501.9520 #### [facility] [address] [place], [place], [id number] COVID-19 virus antigen assay Ordered By: Davian Kelly on 01-25-2025 SARS-CoV-2 (COVID-19) Ag IA.rapid Ql (Resp) [facility] Erythrocyte distribution wid th ratioOrdered By: Darline Lundy on 01-25-2025 Erythrocyte distribution width (RBC) [Ratio] 13.2 % 11.6-14.6 [facility] Erythrocyte distribution wid th standard deviationOrdered By: Darline Lundy on 01-25-2025 Erythrocyte distribution width (RBC) [Ratio] 40.2 fl 35.1-43.9 [facility] Hematocrit Auto (Bld) [Volum e fraction]Ordered By: Darline Lundy on 01-25-2025 Hematocrit (Bld) [Volume fraction] 24.9 % Low 37-47 [facility] Hemoglobin measurementOrdere d By: Darline Lundy on 01-25-2025 Hemoglobin (Bld) [Mass/Vol] 8.4 g/dL Low 12.0-15.0 [facility] MCV (mean corpuscular volume ) determinationOrdered By: Darline Lundy on 01-25-2025 MCV (RBC) [Entitic vol] 82.7 fL 81-99 [facility] Mean corpuscular hemoglobin (MCH) determinationOrdered By: Darline Lundy on 01-25-2025 MCH (RBC) [Entitic mass] 27.9 pg 27.0-32.0 [facility] Mean corpuscular hemoglobin concentration (MCHC) determinationOrdered By: Darline Lundy on 01-25-2025 MCHC (RBC) [Mass/Vol] 33.7 g/dL 32-36 [facility] Mean platelet volume determi nationOrdered By: Darline Lundy on 01-25-2025 Platelet mean volume (Bld) [Entitic vol] 8.7 fL 6.2-12.0 [facility] Platelet countOrdered By: Luiz Lundy on 01-25-2025 Platelets (Bld) [#/Vol] 362 10*3/uL 150-450 [facility] RBC Auto (Bld) [#/Vol]Ordere d By: Darline Lundy on 01-25-2025 RBC (Bld) [#/Vol] 3.01 10*6/uL Low 4.2-5.4 [facility] White blood cell (WBC) count Ordered By: Darline Lundy on 01-25-2025 WBC (Bld) [#/Vol] 8.6 10*3/uL 4.4-11.0 [facility] Anion gap in Serum or Plasma Ordered By: Darline Lundy on 01-24-2025 Anion gap [Moles/Vol] 9 mmol/L 08-25 [facility] BUN/creatinine ratioOrdered By: Darline Lundy on 01-24-2025 Urea nitrogen/Creatinine [Mass ratio] 28.0 mg/mg High 01-30 [facility] Basic Metabolic Profile (BMP )on 01-24-2025 BUN/CRE 28.0 RATIO High 01-30 [facility] Comment on above: Performed By: #### L 503.0106, BTS, L500.4050, L100.0100, [id number] #### [facility] [address] [place], [address] Calcium [Mass/Vol] 8.4 mg/dL Normal 7.6-11.0 [facility] Comment on above: Performed By: #### L 503.0106, BTS, L500.4050, L100.0100, [id number] #### [facility] [address] [place], [address] Chloride [Moles/Vol] 103 mmol/L Normal 98-108 [facility] Comment on above: Performed By: #### L 503.0106, BTS, L500.4050, L100.0100, [id number] #### [facility] [address] [place], [address] CO2 [Moles/Vol] 24.5 mmol/L Normal 21.0-32.0 [facility] Comment on above: Performed By: #### L 503.0106, BTS, L500.4050, L100.0100, [id number] #### [facility] [address] [place], [address] Creatinine [Mass/Vol] 0.68 mg/dL Low 0.70-1.20 [facility] Comment on above: Performed By: #### L 503.0106, BTS, L500.4050, L100.0100, [id number] #### [facility] [address] [place], [address] ECRCL 49.12 ml/min Low 50-250 [facility] Comment on above: Performed By: #### L 503.0106, BTS, L500.4050, L100.0100, [id number] #### [facility] [address] [place], [address] GAP 9 Normal 5-15 [facility] Comment on above: Performed By: #### L 503.0106, BTS, L500.4050, L100.0100, [id number] #### [facility] [address] [place], [address] GFR/1.73 sq M.predicted among non-blacks MDRD (S/P/Bld) [Vol rate/Area] 86 mL/min/{1.73_m2} Normal >60 [facility] Comment on above: Result Comment: mL/m in/1.73m2 CKD-EPI Creatinine Equation (2020) Performed By: #### L 503.0106, BTS, L500.4050, L100.0100, [id number] #### [facility] [address] [place], [address] Glucose [Mass/Vol] 97 mg/dL Normal 70-99 [facility] Comment on above: Performed By: #### L 503.0106, BTS, L500.4050, L100.0100, [id number] #### [facility] [address] [place], [address] Potassium [Moles/Vol] 3.9 mmol/L Normal 3.3-5.1 [facility] Comment on above: Performed By: #### L 503.0106, BTS, L500.4050, L100.0100, [id number] #### [facility] [address] [place], [address] Sodium [Moles/Vol] 136 mmol/L Normal 133-145 [facility] Comment on above: Performed By: #### L 503.0106, BTS, L500.4050, L100.0100, [id number] #### [facility] [address] [place], [address] Urea nitrogen [Mass/Vol] 19 mg/dL Normal 4-19 [facility] Comment on above: Performed By: #### L 503.0106, BTS, L500.4050, L100.0100, [id number] #### [facility] [address] [place], [address] CBC-Complete Blood Cnt No Di ffon 01-24-2025 Erythrocyte distribution width (RBC) [Ratio] 13.2 % Normal 11.6-14.6 [facility] Comment on above: Performed By: #### L 503.0106, BTS, L500.4050, L100.0100, [id number] #### [facility] [address] [place], [address] Hematocrit (Bld) [Volume fraction] 25.0 % Low 37-47 [facility] Comment on above: Performed By: #### L 503.0106, BTS, L500.4050, L100.0100, [id number] #### [facility] [address] [place], [address] Hemoglobin (Bld) [Mass/Vol] 8.2 g/dL Low 12.0-15.0 [facility] Comment on above: Performed By: #### L 503.0106, BTS, L500.4050, L100.0100, [id number] #### [facility] [address] [place], [address] MCH (RBC) [Entitic mass] 27.5 pg Normal 27.0-32.0 [facility] Comment on above: Performed By: #### L 503.0106, BTS, L500.4050, L100.0100, [id number] #### [facility] [address] [place], [address] MCHC (RBC) [Mass/Vol] 32.8 g/dL Normal 32-36 [facility] Comment on above: Performed By: #### L 503.0106, BTS, L500.4050, L100.0100, [id number] #### [facility] [address] [place], [address] MCV (RBC) [Entitic vol] 83.9 fL Normal 81-99 [facility] Comment on above: Performed By: #### L 503.0106, BTS, L500.4050, L100.0100, [id number] #### [facility] [address] [place], [address] Platelet mean volume (Bld) [Entitic vol] 9.1 fL Normal 6.2-12.0 [facility] Comment on above: Performed By: #### L 503.0106, BTS, L500.4050, L100.0100, [id number] #### [facility] [address] [place], [address] Platelets (Bld) [#/Vol] 308 10*3/uL Normal 150-450 [facility] Comment on above: Performed By: #### L 503.0106, BTS, L500.4050, L100.0100, [id number] #### [facility] [address] [place], [address] RBC (Bld) [#/Vol] 2.98 10*6/uL Low 4.2-5.4 [facility] Comment on above: Performed By: #### L 503.0106, BTS, L500.4050, L100.0100, [id number] #### [facility] [address] [place], [address] RDW SD 40.6 fl Normal 35.1-43.9 [facility] Comment on above: Performed By: #### L 503.0106, BTS, L500.4050, L100.0100, [id number] #### [facility] [address] [place], [address] WBC (Bld) [#/Vol] 8.6 10*3/uL Normal 4.4-11.0 [facility] Comment on above: Performed By: #### L 503.0106, BTS, L500.4050, L100.0100, [id number] #### [facility] [address] [place], [address] Carbon dioxide, total [Moles /volume] in Central venous bloodOrdered By: Darline Lundy on 01-24-2025 CO2 [Moles/Vol] 24.5 mmol/L 21.0-32.0 [facility] Chloride assayOrdered By: Luiz uLndy on 01-24-2025 Chloride [Moles/Vol] 103 mmol/L 98-108 [facility] Glomerular filtration rate ( GFR) estimation/1.73 sq m using serum, plasma, or whole bOrdered By: Darline Lundy on 01-24-2025 GFR/1.73 sq M.predicted among non-blacks MDRD (S/P/Bld) [Vol rate/Area] 86 mL/min/{1.73_m2} >60 [facility] Comment on above: mL/min/1.73m2 CKD-EP I Creatinine Equation (2020) HH, Hemoglobin AND Hematocri ton 01-24-2025 Hematocrit (Bld) [Volume fraction] 25.1 % Low 37-47 [facility] Comment on above: Performed By: #### L 503.0106, BTS, L500.4050, L100.0100, [id number] #### [facility] [address] [place], [address] Hemoglobin (Bld) [Mass/Vol] 8.5 g/dL Low 12.0-15.0 [facility] Comment on above: Performed By: #### L 503.0106, BTS, L500.4050, L100.0100, [id number] #### [facility] [address] [place], [address] Potassium measurement (mass/ volume)Ordered By: Darline Lundy on 01-24-2025 Potassium (Unsp spec) [Mass/Vol] 3.9 mmol/L 3.3-5.1 [facility] Serum creatinine measurement (mass/volume)Ordered By: Darline Lundy on 01-24-2025 Creatinine [Mass/Vol] 0.68 mg/dL Low 0.70-1.20 [facility] Serum glucose measurement (m ass/volume)Ordered By: Darline Lundy on 01-24-2025 Glucose [Mass/Vol] 97 mg/dL 70-99 [facility] Serum or plasma calcium taylor urement (mass/volume)Ordered By: Darline Lundy on 01-24-2025 Calcium [Mass/Vol] 8.4 mg/dL 7.6-11.0 [facility] Serum or plasma urea nitroge n measurement (mass/volume)Ordered By: Darline Lundy on 01-24-2025 Urea nitrogen [Mass/Vol] 19 mg/dL 4-19 [facility] Sodium levelOrdered By: Oscar Lundy on 01-24-2025 Sodium [Moles/Vol] 136 mmol/L 133-145 [facility] Basic Metabolic Profile (BMP )on 01-23-2025 BUN/CRE 26.3 RATIO High 10-20 [facility] Comment on above: Performed By: #### L 503.0106, BTS, L500.4050, L100.0100, [id number] #### [facility] [address] [place], [address] Calcium [Mass/Vol] 8.3 mg/dL Normal 7.6-11.0 [facility] Comment on above: Performed By: #### L 503.0106, BTS, L500.4050, L100.0100, [id number] #### [facility] [address] [place], [address] Chloride [Moles/Vol] 102 mmol/L Normal 98-108 [facility] Comment on above: Performed By: #### L 503.0106, BTS, L500.4050, L100.0100, [id number] #### [facility] [address] [place], [address] CO2 [Moles/Vol] 24.2 mmol/L Normal 21.0-32.0 [facility] Comment on above: Performed By: #### L 503.0106, BTS, L500.4050, L100.0100, [id number] #### [facility] [address] [place], [address] Creatinine [Mass/Vol] 0.61 mg/dL Low 0.70-1.20 [facility] Comment on above: Performed By: #### L 503.0106, BTS, L500.4050, L100.0100, [id number] #### [facility] [address] [place], [address] ECRCL 49.16 ml/min Low 50-250 [facility] Comment on above: Performed By: #### L 503.0106, BTS, L500.4050, L100.0100, [id number] #### [facility] [address] [place], [address] GAP 9 Normal 5-15 [facility] Comment on above: Performed By: #### L 503.0106, BTS, L500.4050, L100.0100, [id number] #### [facility] [address] [place], [address] GFR/1.73 sq M.predicted among non-blacks MDRD (S/P/Bld) [Vol rate/Area] 89 mL/min/{1.73_m2} Normal >60 [facility] Comment on above: Result Comment: mL/m in/1.73m2 CKD-EPI Creatinine Equation (2020) Performed By: #### L 503.0106, BTS, L500.4050, L100.0100, [id number] #### [facility] [address] [place], [address] Glucose [Mass/Vol] 105 mg/dL High 70-99 [facility] Comment on above: Performed By: #### L 503.0106, BTS, L500.4050, L100.0100, [id number] #### [facility] [address] [place], [address] Potassium [Moles/Vol] 3.8 mmol/L Normal 3.3-5.1 [facility] Comment on above: Performed By: #### L 503.0106, BTS, L500.4050, L100.0100, [id number] #### [facility] [address] [place], [address] Sodium [Moles/Vol] 135 mmol/L Normal 133-145 [facility] Comment on above: Performed By: #### L 503.0106, BTS, L500.4050, L100.0100, [id number] #### [facility] [address] [place], [address] Urea nitrogen [Mass/Vol] 16 mg/dL Normal 4-19 [facility] Comment on above: Performed By: #### L 503.0106, BTS, L500.4050, L100.0100, [id number] #### [facility] [address] [place], [address] CBC-Complete Blood Cnt No Di ffon 01-23-2025 Erythrocyte distribution width (RBC) [Ratio] 13.2 % Normal 11.6-14.6 [facility] Comment on above: Performed By: #### L 503.0106, BTS, L500.4050, L100.0100, [id number] #### [facility] [address] [place], [address] Hematocrit (Bld) [Volume fraction] 25.6 % Low 37-47 [facility] Comment on above: Performed By: #### L 503.0106, BTS, L500.4050, L100.0100, [id number] #### [facility] [address] [place], [address] Hemoglobin (Bld) [Mass/Vol] 8.6 g/dL Low 12.0-15.0 [facility] Comment on above: Performed By: #### L 503.0106, BTS, L500.4050, L100.0100, [id number] #### [facility] [address] [place], [address] MCH (RBC) [Entitic mass] 27.7 pg Normal 27.0-32.0 [facility] Comment on above: Performed By: #### L 503.0106, BTS, L500.4050, L100.0100, [id number] #### [facility] [address] [place], [address] MCHC (RBC) [Mass/Vol] 33.6 g/dL Normal 32-36 [facility] Comment on above: Performed By: #### L 503.0106, BTS, L500.4050, L100.0100, [id number] #### [facility] [address] [place], [address] MCV (RBC) [Entitic vol] 82.6 fL Normal 81-99 [facility] Comment on above: Performed By: #### L 503.0106, BTS, L500.4050, L100.0100, [id number] #### [facility] [address] [place], [address] Platelet mean volume (Bld) [Entitic vol] 9.2 fL Normal 6.2-12.0 [facility] Comment on above: Performed By: #### L 503.0106, BTS, L500.4050, L100.0100, [id number] #### [facility] [address] [place], [address] Platelets (Bld) [#/Vol] 250 10*3/uL Normal 150-450 [facility] Comment on above: Performed By: #### L 503.0106, BTS, L500.4050, L100.0100, [id number] #### [facility] [address] [place], [address] RBC (Bld) [#/Vol] 3.10 10*6/uL Low 4.2-5.4 [facility] Comment on above: Performed By: #### L 503.0106, BTS, L500.4050, L100.0100, [id number] #### [facility] [address] [place], [address] RDW SD 39.6 fl Normal 35.1-43.9 [facility] Comment on above: Performed By: #### L 503.0106, BTS, L500.4050, L100.0100, [id number] #### [facility] [address] [place], [address] WBC (Bld) [#/Vol] 8.6 10*3/uL Normal 4.4-11.0 [facility] Comment on above: Performed By: #### L 503.0106, BTS, L500.4050, L100.0100, [id number] #### [facility] [address] [place], [address] Ferritinon 01-23-2025 Ferritin [Mass/Vol] 1208 ng/mL High 22-378 [facility] Comment on above: Performed By: #### L 503.6030, L503.6550 #### [facility] [address] [place], [address] Iron measurement (mass/mass) Ordered By: Davian Kelly on 01-23-2025 Iron (Unsp spec) [Mass/Mass] 70 ug/dL 50-170 [facility] Iron+Iron Binding Capacityon 01-23-2025 TIBC 189 ug/dL Low 250-450 [facility] Comment on above: Performed By: #### L 503.6030, L503.6550 #### [facility] [address] [place], [address] No Panel InformationOrdered By: Davian Kelly on 01-23-2025 Unsaturated Iron Binding Capacity 119 ug/dL Low 228-428 [facility] Serum or plasma ferritin allison surement (mass/volume)Ordered By: Davian Kelly on 01-23-2025 Ferritin [Mass/Vol] 1208 ng/mL High 22-378 [facility] Serum or plasma iron saturat ion measurement (mass fraction)Ordered By: Davian Kelly on 01-23-2025 Iron saturation [Mass fraction] 37.0 % 13-59 [facility] Basic Metabolic Profile (BMP )on 01-22-2025 BUN/CRE 27.5 RATIO High 1020 [facility] Comment on above: Performed By: #### L 503.0106, BTS, L500.4050, L100.0100, [id number] #### [facility] [address] [place], [address] Calcium [Mass/Vol] 8.2 mg/dL Normal 7.6-11.0 [facility] Comment on above: Performed By: #### L 503.0106, BTS, L500.4050, L100.0100, [id number] #### [facility] [address] [place], [address] Chloride [Moles/Vol] 103 mmol/L Normal 98-108 [facility] Comment on above: Performed By: #### L 503.0106, BTS, L500.4050, L100.0100, [id number] #### [facility] [address] [place], [address] CO2 [Moles/Vol] 23.1 mmol/L Normal 21.0-32.0 [facility] Comment on above: Performed By: #### L 503.0106, BTS, L500.4050, L100.0100, [id number] #### [facility] [address] [place], [address] Creatinine [Mass/Vol] 0.64 mg/dL Low 0.70-1.20 [facility] Comment on above: Performed By: #### L 503.0106, BTS, L500.4050, L100.0100, [id number] #### [facility] [address] [place], [address] ECRCL 50.86 ml/min Normal 50-250 [facility] Comment on above: Performed By: #### L 503.0106, BTS, L500.4050, L100.0100, [id number] #### [facility] [address] [place], [address] GAP 10 Normal 5-15 [facility] Comment on above: Performed By: #### L 503.0106, BTS, L500.4050, L100.0100, [id number] #### [facility] [address] [place], [address] GFR/1.73 sq M.predicted among non-blacks MDRD (S/P/Bld) [Vol rate/Area] 88 mL/min/{1.73_m2} Normal >60 [facility] Comment on above: Result Comment: mL/m in/1.73m2 CKD-EPI Creatinine Equation (2020) Performed By: #### L 503.0106, BTS, L500.4050, L100.0100, [id number] #### [facility] [address] [place], [address] Glucose [Mass/Vol] 135 mg/dL High 70-99 [facility] Comment on above: Performed By: #### L 503.0106, BTS, L500.4050, L100.0100, [id number] #### [facility] [address] [place], [address] Potassium [Moles/Vol] 4.2 mmol/L Normal 3.3-5.1 [facility] Comment on above: Performed By: #### L 503.0106, BTS, L500.4050, L100.0100, [id number] #### [facility] [address] [place], [address] Sodium [Moles/Vol] 136 mmol/L Normal 133-145 [facility] Comment on above: Performed By: #### L 503.0106, BTS, L500.4050, L100.0100, [id number] #### [facility] [address] [place], [address] Urea nitrogen [Mass/Vol] 18 mg/dL Normal 4-19 [facility] Comment on above: Performed By: #### L 503.0106, BTS, L500.4050, L100.0100, [id number] #### [facility] [facility] [address] [place], [address] CBC-Complete Blood Cnt No Di ffon 01-22-2025 Erythrocyte distribution width (RBC) [Ratio] 13.0 % Normal 11.6-14.6 [facility] Comment on above: Performed By: #### L 503.0106, BTS, L500.4050, L100.0100, L501.9520 #### [facility] [address] [place], [address] Hematocrit (Bld) [Volume fraction] 26.6 % Low 37-47 [facility] Comment on above: Performed By: #### L 503.0106, BTS, L500.4050, L100.0100, L501.9520 #### [facility] [address] [place], [address] Hemoglobin (Bld) [Mass/Vol] 9.1 g/dL Low 12.0-15.0 [facility] Comment on above: Performed By: #### L 503.0106, BTS, L500.4050, L100.0100, L501.9520 #### [facility] [address] [place], [address] MCH (RBC) [Entitic mass] 27.9 pg Normal 27.0-32.0 [facility] Comment on above: Performed By: #### L 503.0106, BTS, L500.4050, L100.0100, L501.9520 #### [facility] [address] [place], [address] MCHC (RBC) [Mass/Vol] 34.2 g/dL Normal 32-36 [facility] Comment on above: Performed By: #### L 503.0106, BTS, L500.4050, L100.0100, L501.9520 #### [facility] [address] [place], [address] MCV (RBC) [Entitic vol] 81.6 fL Normal 81-99 [facility] Comment on above: Performed By: #### L 503.0106, BTS, L500.4050, L100.0100, L501.9520 #### [facility] [address] [place], [address] Platelet mean volume (Bld) [Entitic vol] 9.2 fL Normal 6.2-12.0 [facility] Comment on above: Performed By: #### L 503.0106, BTS, L500.4050, L100.0100, L501.9520 #### [facility] [address] [place], [address] Platelets (Bld) [#/Vol] 211 10*3/uL Normal 150-450 [facility] Comment on above: Performed By: #### L 503.0106, BTS, L500.4050, L100.0100, L501.9520 #### [facility] [address] [place], [address] RBC (Bld) [#/Vol] 3.26 10*6/uL Low 4.2-5.4 [facility] Comment on above: Performed By: #### L 503.0106, BTS, L500.4050, L100.0100, L501.9520 #### [facility] [address] [place], [address] RDW SD 39.3 fl Normal 35.1-43.9 [facility] Comment on above: Performed By: #### L 503.0106, BTS, L500.4050, L100.0100, L501.9520 #### [facility] [address] [place], [address] WBC (Bld) [#/Vol] 8.6 10*3/uL Normal 4.4-11.0 [facility] Comment on above: Performed By: #### L 503.0106, BTS, L500.4050, L100.0100, L501.9520 #### [facility] [address] [place], [address] Basic Metabolic Profile (BMP )on 01-21-2025 BUN/CRE 16.5 RATIO Normal 10-20 [facility] Comment on above: Performed By: #### L 503.0106, BTS, L500.4050, L100.0100, L501.9520 #### [facility] [address] [place], [address] Calcium [Mass/Vol] 7.8 mg/dL Normal 7.6-11.0 [facility] Comment on above: Performed By: #### L 503.0106, BTS, L500.4050, L100.0100, L501.9520 #### [facility] [address] [place], [address] Chloride [Moles/Vol] 103 mmol/L Normal 98-108 [facility] Comment on above: Performed By: #### L 503.0106, BTS, L500.4050, L100.0100, L501.9520 #### [facility] [address] [place], [address] CO2 [Moles/Vol] 22.5 mmol/L Normal 21.0-32.0 [facility] Comment on above: Performed By: #### L 503.0106, BTS, L500.4050, L100.0100, L501.9520 #### [facility] [address] [place], [address] Creatinine [Mass/Vol] 0.69 mg/dL Low 0.70-1.20 [facility] Comment on above: Performed By: #### L 503.0106, BTS, L500.4050, L100.0100, L501.9520 #### [facility] [address] [place], [address] ECRCL 49.36 ml/min Low 50-250 [facility] Comment on above: Performed By: #### L 503.0106, BTS, L500.4050, L100.0100, L501.9520 #### [facility] [address] [place], [address] GAP 10 Normal 5-15 [facility] Comment on above: Performed By: #### L 503.0106, BTS, L500.4050, L100.0100, L501.9520 #### [facility] [address] [place], [address] GFR/1.73 sq M.predicted among non-blacks MDRD (S/P/Bld) [Vol rate/Area] 86 mL/min/{1.73_m2} Normal >60 [facility] Comment on above: Result Comment: mL/m in/1.73m2 CKD-EPI Creatinine Equation (2020) Performed By: #### L 503.0106, BTS, L500.4050, L100.0100, L501.9520 #### [facility] [address] [place], [address] Glucose [Mass/Vol] 167 mg/dL High 70-99 [facility] Comment on above: Performed By: #### L 503.0106, BTS, L500.4050, L100.0100, L501.9520 #### [facility] [address] [place], [address] Potassium [Moles/Vol] 3.8 mmol/L Normal 3.3-5.1 [facility] Comment on above: Performed By: #### L 503.0106, BTS, L500.4050, L100.0100, L501.9520 #### [facility] [address] [place], [address] Sodium [Moles/Vol] 135 mmol/L Normal 133-145 [facility] Comment on above: Performed By: #### L 503.0106, BTS, L500.4050, L100.0100, L501.9520 #### [facility] [address] [place], [address] Urea nitrogen [Mass/Vol] 11 mg/dL Normal 4-19 [facility] Comment on above: Performed By: #### L 503.0106, BTS, L500.4050, L100.0100, L501.9520 #### [facility] [address] [place], [address] CBC-Complete Blood Cnt No Di ffon 01-21-2025 Erythrocyte distribution width (RBC) [Ratio] 13.1 % Normal 11.6-14.6 [facility] Comment on above: Performed By: #### L 503.0106, BTS, L500.4050, L100.0100, L501.9520 #### [facility] [address] [place], [address] Hematocrit (Bld) [Volume fraction] 28.9 % Low 37-47 [facility] Comment on above: Performed By: #### L 503.0106, BTS, L500.4050, L100.0100, L501.9520 #### [facility] [address] [place], [address] Hemoglobin (Bld) [Mass/Vol] 9.7 g/dL Low 12.0-15.0 [facility] Comment on above: Performed By: #### L 503.0106, BTS, L500.4050, L100.0100, L501.9520 #### [facility] [address] [place], [address] MCH (RBC) [Entitic mass] 27.6 pg Normal 27.0-32.0 [facility] Comment on above: Performed By: #### L 503.0106, BTS, L500.4050, L100.0100, L501.9520 #### [facility] [address] [place], [address] MCHC (RBC) [Mass/Vol] 33.6 g/dL Normal 32-36 [facility] Comment on above: Performed By: #### L 503.0106, BTS, L500.4050, L100.0100, L501.9520 #### [facility] [address] [place], [address] MCV (RBC) [Entitic vol] 82.3 fL Normal 81-99 [facility] Comment on above: Performed By: #### L 503.0106, BTS, L500.4050, L100.0100, L501.9520 #### [facility] [address] [place], [address] Platelet mean volume (Bld) [Entitic vol] 8.8 fL Normal 6.2-12.0 [facility] Comment on above: Performed By: #### L 503.0106, BTS, L500.4050, L100.0100, L501.9520 #### [facility] [address] [place], [address] Platelets (Bld) [#/Vol] 209 10*3/uL Normal 150-450 [facility] Comment on above: Performed By: #### L 503.0106, BTS, L500.4050, L100.0100, L501.9520 #### [facility] [address] [place], [address] RBC (Bld) [#/Vol] 3.51 10*6/uL Low 4.2-5.4 [facility] Comment on above: Performed By: #### L 503.0106, BTS, L500.4050, L100.0100, L501.9520 #### [facility] [address] [place], [address] RDW SD 39.8 fl Normal 35.1-43.9 [facility] Comment on above: Performed By: #### L 503.0106, BTS, L500.4050, L100.0100, L501.9520 #### [facility] [address] [place], [address] WBC (Bld) [#/Vol] 12.1 10*3/uL High 4.4-11.0 [facility] Comment on above: Performed By: #### L 503.0106, BTS, L500.4050, L100.0100, L501.9520 #### [facility] [address] [place], [address] Absolute lymphocyte countOrd ered By: Stephan Beard on 01-20-2025 Lymphocytes Auto (Unsp spec) [#/Vol] 0.94 10*3/uL 0.83-4.51 [facility] Absolute neutrophil countOrd ered By: Stephan Beard on 01-20-2025 Neutrophils (Bld) [#/Vol] 6.9 10*3/uL 2.0-7.7 [facility] Automated lymphocyte count a s percentage of total leukocytesOrdered By: Stephan Beard on 01-20-2025 Lymphocytes/100 WBC Auto (Unsp spec) 11.1 % Low 19-41 [facility] Basophil percentageOrdered B y: Stephan Beard on 01-20-2025 Basophils/100 WBC (Bld) 0.1 % 0-1 [facility] Bilirubin Test strip Ql (U)O rdered By: Stephan Beard on 01-20-2025 Bilirubin Ql (U) Negative Negative [facility] Bilirubin, totalOrdered By: Stephan Beard on 01-20-2025 Bilirubin [Mass/Vol] 0.63 mg/dL 0.00-1.30 [facility] CBC W/Diff, Automatedon 01-11 Absolute Lymph 0.94 X10 3/uL Normal 0.83-4.51 [facility] Comment on above: Performed By: #### L 503.0106, BTS, L500.4050, L100.0100, L501.9520 #### [facility] [address] [place], [address] Absolute Neut 6.9 X10 3/uL Normal 2.0-7.7 [facility] Comment on above: Performed By: #### L 503.0106, BTS, L500.4050, L100.0100, L501.9520 #### [facility] [address] [place], [address] Basophils/100 WBC (Bld) 0.1 % Normal 0-1 [facility] Comment on above: Performed By: #### L 503.0106, BTS, L500.4050, L100.0100, L501.9520 #### [facility] [address] [place], [address] Eosinophils/100 WBC (Bld) 0.1 % Normal 0-5 [facility] Comment on above: Performed By: #### L 503.0106, BTS, L500.4050, L100.0100, L501.9520 #### [facility] [address] [place], [address] Erythrocyte distribution width (RBC) [Ratio] 13.1 % Normal 11.6-14.6 [facility] Comment on above: Performed By: #### L 503.0106, BTS, L500.4050, L100.0100, L501.9520 #### [facility] [address] [place], [address] Hematocrit (Bld) [Volume fraction] 34.5 % Low 37-47 [facility] Comment on above: Performed By: #### L 503.0106, BTS, L500.4050, L100.0100, L501.9520 #### [facility] [address] [place], [address] Hemoglobin (Bld) [Mass/Vol] 11.1 g/dL Low 12.0-15.0 [facility] Comment on above: Performed By: #### L 503.0106, BTS, L500.4050, L100.0100, L501.9520 #### [facility] [address] [place], [address] IG% 0.400 Normal 0.0-0.9 [facility] Comment on above: Result Comment: IG% - Immature Granulocytes (promyelocytes, myelocytes and metamyelocytes) > 1% indicates that a LEFT SHIFT is Present. Performed By: #### L 503.0106, BTS, L500.4050, L100.0100, L501.9520 #### [facility] [address] [place], [address] Lymphocytes/100 WBC (Bld) 11.1 % Low 19-41 [facility] Comment on above: Performed By: #### L 503.0106, BTS, L500.4050, L100.0100, L501.9520 #### [facility] [address] [place], [address] MCH (RBC) [Entitic mass] 27.3 pg Normal 27.0-32.0 [facility] Comment on above: Performed By: #### L 503.0106, BTS, L500.4050, L100.0100, L501.9520 #### [facility] [address] [place], [address] MCHC (RBC) [Mass/Vol] 32.2 g/dL Normal 32-36 [facility] Comment on above: Performed By: #### L 503.0106, BTS, L500.4050, L100.0100, L501.9520 #### [facility] [address] [place], [address] MCV (RBC) [Entitic vol] 84.8 fL Normal 81-99 [facility] Comment on above: Performed By: #### L 503.0106, BTS, L500.4050, L100.0100, L501.9520 #### [facility] [address] [place], [address] Monocytes/100 WBC (Bld) 7.2 % Normal 0-10 [facility] Comment on above: Performed By: #### L 503.0106, BTS, L500.4050, L100.0100, L501.9520 #### [facility] [address] [place], [address] Neutrophils/100 WBC (Bld) 81.1 % High 47-70 [facility] Comment on above: Performed By: #### L 503.0106, BTS, L500.4050, L100.0100, L501.9520 #### [facility] [address] [place], [address] Nucleated RBC (Bld) [#/Vol] 0 10*3/uL Normal 0-5 [facility] Comment on above: Performed By: #### L 503.0106, BTS, L500.4050, L100.0100, L501.9520 #### [facility] [address] [place], [address] Platelet mean volume (Bld) [Entitic vol] 8.8 fL Normal 6.2-12.0 [facility] Comment on above: Performed By: #### L 503.0106, BTS, L500.4050, L100.0100, L501.9520 #### [facility] [address] [place], [address] Platelets (Bld) [#/Vol] 241 10*3/uL Normal 150-450 [facility] Comment on above: Performed By: #### L 503.0106, BTS, L500.4050, L100.0100, L501.9520 #### [facility] [address] [place], [address] RBC (Bld) [#/Vol] 4.07 10*6/uL Low 4.2-5.4 [facility] Comment on above: Performed By: #### L 503.0106, BTS, L500.4050, L100.0100, L501.9520 #### [facility] [address] [place], [address] RDW SD 40.1 fl Normal 35.1-43.9 [facility] Comment on above: Performed By: #### L 503.0106, BTS, L500.4050, L100.0100, L501.9520 #### [facility] [address] [place], [address] WBC (Bld) [#/Vol] 8.5 10*3/uL Normal 4.4-11.0 [facility] Comment on above: Performed By: #### L 503.0106, BTS, L500.4050, L100.0100, L501.9520 #### [facility] [address] [place], [address] Comprehensive Metabolic [facility] ilon 01-20-2025 Albumin [Mass/Vol] 3.6 g/dL Normal 3.4-4.8 [facility] Comment on above: Performed By: #### L 503.0106, BTS, L500.4050, L100.0100, L501.9520 #### [facility] [address] [place], [address] Albumin/Globulin [Mass ratio] 1.4 {ratio} Normal 0.9-2.4 [facility] Comment on above: Performed By: #### L 503.0106, BTS, L500.4050, L100.0100, L501.9520 #### [facility] [address] [place], [address] ALK PHOS 51 U/L Normal 35-104 [facility] Comment on above: Performed By: #### L 503.0106, BTS, L500.4050, L100.0100, L501.9520 #### [facility] [address] [place], [address] ALT [Catalytic activity/Vol] U/L Normal <=34 [facility] Comment on above: Performed By: #### L 503.0106, BTS, L500.4050, L100.0100, L501.9520 #### [facility] [address] [place], [address] AST [Catalytic activity/Vol] 19 U/L Normal <=31 [facility] Comment on above: Performed By: #### L 503.0106, BTS, L500.4050, L100.0100, L501.9520 #### [facility] [address] [place], [address] Bilirubin [Mass/Vol] 0.63 mg/dL Normal 0.00-1.30 [facility] Comment on above: Performed By: #### L 503.0106, BTS, L500.4050, L100.0100, L501.9520 #### [facility] [address] [place], [address] BUN/CRE 19.9 RATIO Normal 10-20 [facility] Comment on above: Performed By: #### L 503.0106, BTS, L500.4050, L100.0100, L501.9520 #### [facility] [address] [place], [address] Calcium [Mass/Vol] 8.2 mg/dL Normal 7.6-11.0 [facility] Comment on above: Performed By: #### L 503.0106, BTS, L500.4050, L100.0100, L501.9520 #### [facility] [address] [place], [address] Chloride [Moles/Vol] 100 mmol/L Normal 98-108 [facility] Comment on above: Performed By: #### L 503.0106, BTS, L500.4050, L100.0100, L501.9520 #### [facility] [address] [place], [address] CO2 [Moles/Vol] 21.8 mmol/L Normal 21.0-32.0 [facility] Comment on above: Performed By: #### L 503.0106, BTS, L500.4050, L100.0100, L501.9520 #### [facility] [address] [place], [address] Creatinine [Mass/Vol] 0.65 mg/dL Low 0.70-1.20 [facility] Comment on above: Performed By: #### L 503.0106, BTS, L500.4050, L100.0100, L501.9520 #### [facility] [address] [place], [address] ECRCL 50.52 ml/min Normal 50-250 [facility] Comment on above: Performed By: #### L 503.0106, BTS, L500.4050, L100.0100, L501.9520 #### [facility] [address] [place], [address] GAP 12 Normal 5-15 [facility] Comment on above: Performed By: #### L 503.0106, BTS, L500.4050, L100.0100, L501.9520 #### [facility] [address] [place], [address] GFR/1.73 sq M.predicted among non-blacks MDRD (S/P/Bld) [Vol rate/Area] 87 mL/min/{1.73_m2} Normal >60 [facility] Comment on above: Result Comment: mL/m in/1.73m2 CKD-EPI Creatinine Equation (2020) Performed By: #### L 503.0106, BTS, L500.4050, L100.0100, L501.9520 #### [facility] [address] [place], [address] Globulin (S) [Mass/Vol] 2.7 g/dL Normal 2.2-4.2 [facility] Comment on above: Performed By: #### L 503.0106, BTS, L500.4050, L100.0100, L501.9520 #### [facility] [address] [place], [address] Glucose [Mass/Vol] 98 mg/dL Normal 70-99 [facility] Comment on above: Performed By: #### L 503.0106, BTS, L500.4050, L100.0100, L501.9520 #### [facility] [address] [place], [address] Potassium [Moles/Vol] 3.5 mmol/L Normal 3.3-5.1 [facility] Comment on above: Performed By: #### L 503.0106, BTS, L500.4050, L100.0100, L501.9520 #### [facility] [address] [place], [address] Sodium [Moles/Vol] 134 mmol/L Normal 133-145 [facility] Comment on above: Performed By: #### L 503.0106, BTS, L500.4050, L100.0100, L501.9520 #### [facility] [address] [place], [address] T PROT 6.3 g/dL Normal 5.9-8.4 [facility] Comment on above: Performed By: #### L 503.0106, BTS, L500.4050, L100.0100, L501.9520 #### [facility] [address] [place], [address] Urea nitrogen [Mass/Vol] 13 mg/dL Normal 4-19 [facility] Comment on above: Performed By: #### L 503.0106, BTS, L500.4050, L100.0100, L501.9520 #### [facility] [address] [place], [address] Consultation - Orthopedicson 01-20-2025 Consultation - Orthopedics [facility] Medical Records Department [address] [place] [address] Consultation - Orthopedics 01/20/25 1415 MR#: [id number] Acct: [id number] Name: MONISHA COHN Rep #: [id number] : 1940 84 From: Braulio Tijerina MD PCP: Tressa Rosales Status:ADM IN Location: MS3 [id number] HPI Consult Data Date of Consult: 01/20/25 [...] Patient notes that she lives in a snf facility and ambulates with a walker or uses a wheelchair. She does not walk independently. She was reported to have fallen yesterday and sustained an injury to her right hand and hip. She was seen at an outside hospital and requested transfer to [place] as they did not have orthopedics. She [...] denies any current treatment or active malignancies. [facility] Medical History Nocturia Urge incontinence Overactive bladder Former tobacco use Depression Hypertension Fall [facility] (closed head injury) Presence of stent in coronary artery ( 12/22/21) Atherosclerotic heart disease of [place] coronary artery without angina pectoris ST elevation [...] Tobacco: How (more content not included)... Normal [facility] Decalcification bone/plaqueo n 01-20-2025 Decalcification bone/plaque ---- Patient Age/Sex Location Account Attending Physician ---- MONISHA COHN 84/F MS3 [id number] Dr. Davian Kelly MD ---- Specimen: [id number] Received: 01/23/25 Status: CAROL Mccauley Num: [id number] Spec Type: TOTAL HIP Subm Dr: Dr. [...] medullary bone. No definitive lesions are identified. Statistical Clerk Advertising sections are submitted in 2 cassettes, following decalcification, as follows: A1: Articular cartilage, including area of detached cartilageA2: Congested medullary bone, area of detached cartilage [place] 01/23/2025 [facility]:[id number] ---- Patient Age/Sex Location Account Attending Physician ---- MONISHA COHN 84/F MS3 [id number] Dr. Davian Kelly MD ---- Signed (signature on file) Dr. Debbie Corea MD 01/27/25 1357 ---- Normal [facility] Comment on above: Performed By: #### L 503.0106, BTS, L500.4050, L100.0100, L501.9520 #### [facility] [address] [place], [address] ED NOTEon 01-20-2025 ED NOTE HNO ID: [id number] Author: FLORIDALMA SZYMANSKI, RN Service: Emergency Medicine Author Type: Registered Nurse Type: ED Notes Filed: 01/20/2025 00:07 Note Text: [facility] here, chart and report provided along with disk of films Normal [facility] Eosinophil percentageOrdered By: Stephan Beard on 01-20-2025 Eosinophils/100 WBC (Bld) 0.1 % 0-5 [facility] Folate [Mass/volume] in Seru m or PlasmaOrdered By: Stephan eBard on 01-20-2025 Folate [Mass/Vol] 6.23 ng/mL 4.60-34.80 [facility] Comment on above: Hemolysis, Results w ill be affected, Requires Recollection. Folates,Serum (Folic Acid)on 01-20-2025 FOLATES,SERUM 6.23 ng/mL Normal 4.60-34.80 [facility] Comment on above: Result Comment: Hemo lysis, Results will be affected, Requires Recollection. Performed By: #### L 503.0106, BTS, L500.4050, L100.0100, L501.9520 #### [facility] Laboratory [address] [facility] [place], [address] H AND P Exam - Hospitaliston 01-20-2025 H&P Exam - Hospitalist [facility] Medical Records Department [address] [place] [address] H P Exam - Hospitalist 01/20/25 0112 MR#: [id number] Acct: [id number] Name: MONISHA COHN Rep #: [id number] : 1940 84 From: Stephan Martel DO PCP: Tressa Rosales Status:ADM IN [place] [facility] [id number] [facility] - General General Date of Admission: 01/20/25 Date of Service: 01/20/25 Chief Complaint: Fall with Right Hip Fracture. HPI Narrative MONISHA COHN, is a 84 F with a past medical history of essential hypertension; currently not on treatment, hyperlipidemia; on atorvastatin, former tobacco abuse; with subsequent COPD and pulmonary hypertension, CAD; with RCA stent at [facility] in [place] (2009) and subsequent inferior wall ST elevation AR s/p RCA stent with cardiogenic shock and [...] recently diagnosed GENA-19 who was transferred from [facility] after she was diagnosed with an [...] LOC with her fall. Dr. North of [facility] spoke to Dr. Tijerina of the orthopedic service here who recommended admission to the hospitalist service with formal consultation pending in the a.m. for ORIF. She was then admitted to the general medical floor for ongoing care for stay that is expected to extend beyond 2 midnights. [facility] Medical History Nocturia Urge incontinence Overactive bladder Former tobacco use Depression Hypertension Fall CHI (closed head injury) Presence of stent in coronary artery ( 12/22/21) Atherosclerotic heart disease of [place] coronary artery without angina pectoris ST elevation [...] PO .COMPLEX (more content not included)... Normal [facility] Hip Min 2 Views (Portable)on 01-20-2025 Hip Min 2 Views (Portable) [facility] Imaging Services [address] [place] [address] Hip Min 2 Views (Portable) MR#: [id number] Acct: [id number] Name: MONISHA COHN Rep #: [id number] : 1940 F 84 From: Law brewster MD PCP: Tressa Rosales Status: ADM IN Study: Hip Min 2 Views (Portable) Date of Exam: 01/20 Exam# [id number] Ordering Dr: Braulio Tijerina MD PROCEDURE: HIP [...] CC: Dr. Braulio Tijerina MD; Tressa Rosales Data Miner: Signed Normal [facility] Hip Min 2 Views (Portable) [facility] Imaging Services [address] [place] [address] Hip Min 2 Views (Portable) MR#: [id number] Acct: [id number] Name: MONISHA COHN Rep #: [id number] : 1940 F 84 From: Law brewster MD PCP: Tressa Rosales Status: ADM IN Study: Hip Min 2 Views (Portable) Date of Exam: 01/20 Exam# [id number] Ordering Dr: Braulio Tijerina MD PROCEDURE: HIP [...] CC: Dr. Braulio Tijerina MD; Tressa Rosales Data Miner: Signed Normal [facility] Immature granulocytes/100 WB C Auto (Bld)Ordered By: Stephan Beard on 01-20-2025 Immature granulocytes/100 WBC (Bld) 0.400 % 0.0-0.9 [facility] Comment on above: IG% - Immature Granu locytes (promyelocytes, myelocytes and metamyelocytes) > 1% indicates that a LEFT SHIFT is Present. Ketones Test strip Ql (U)Ord ered By: Stephan Beard on 01-20-2025 Ketones Ql (U) 15 mg/dl High Negative [facility] L501.4021on 01-20-2025 Trop T High Sen 27 ng/L High <=14 [facility] Comment on above: Performed By: #### L 503.0106, BTS, L500.4050, L100.0100, L501.9520 #### [facility] Laboratory [address] [facility] [place], [address] Laboratory - Chemistry and C hemistry - challengeOrdered By: Stephan Beard on 01-20-2025 AST [Catalytic activity/Vol] 19 U/L <32 [facility] MR/POSTOP.ANEon 01-20-2025 MR/POSTOP.ANE [facility] Medical Records Department [address] [place] [address] Anesthesia Postop Eval I 01/20/25 1715 MR#: [id number] Acct: [id number] Name: MONISHA COHN Rep #: [id number] : 1940 84 From: Brennen Rojas CRNA PCP: Tressa Rosales Status:ADM IN Y Race: C Location: ID3 [id number] Anesthesia: Postop Eval I Current Vital Signs [...] [place] JULIAN Cosigner Signature: CC: Signed Normal [facility] MR/[id number] 01-20-2025 [facility] Medical Records Department [address] [place] [address] Anesthesia Postop Eval II 01/20/251705 MR#: [id number] Acct: [id number] Name: MONISHA COHN Rep #: [id number] : 1940 84 From: Jareth Shepard MD PCP: Tressa Rosales Status:ADM IN Y Race: C Location[place] [facility] [place] [id number] Anesthesia Postop Eval I Sum Anesthesia Postop [...] MD Cosigner Signature: Date CC: Signed Normal [facility] Microscopic analysis of urin e for red blood cells (RBC)Ordered By: Stephan Beard on 01-20-2025 Microscopic analysis of urine for red blood cells (RBC) 0 SEEN /hpf 0-5 [facility] Monocyte percentageOrdered B y: Stephan Beard on 01-20-2025 Monocytes/100 WBC (Bld) 7.2 % 0-10 [facility] Mucus LM Ql (Urine sed)Order ed By: Stephan Beard on 01-20-2025 Mucus Ql (Urine sed) 0 SEEN /hpf [facility] Neutrophil percentageOrdered By: Stephan Beard on 01-20-2025 Neutrophils/100 WBC (Bld) 81.1 % High 47-70 [facility] Nitrite Test strip Ql (U)Ord ered By: Stephan Beard on 01-20-2025 Nitrite Ql (U) Negative Negative [facility] Nucleated red blood cell per centageOrdered By: Stephan Beard on 01-20-2025 Nucleated RBC/100 WBC (Bld) [Ratio] 0 % 0-5 [facility] Operative Reporton Operative Report [facility] Medical Records Department [address] [place] [address] Operative Report 01/20/25 1545 MR#: [id number] Acct: [id number] Name: MONISHA COHN Rep #: [id number] : 1940 84 From: Braulio Tijerina MD PCP: Tressa Rosales Status:ADM IN [facility] (Standard) Operative Information Date of Procedure: 01/20/25 Pre-Operative Diagnosis: Right hip subcapital femoral neck fracture Post-Operative Diagnosis: Right hip subcapital femoral neck fracture Surgery/Procedure Performed: Right hip endoprosthesis standards engineer: Yes Manufacture Specialist: Edyta Bhatti Tasks completed by first aid trainer: Opening, Closing, Implanting device and Retracting Additional mailing machine assistant?: No Type of Anesthesia: General RN [...] the emmanuel (more content not included)... Normal [facility] Phosphoruson 01-20-2025 Phosphate [Mass/Vol] 2.4 mg/dL Low 2.7-4.5 [facility] Comment on above: Performed By: #### L 501.2300 #### [facility] Laboratory [address] [place], [address] Protein Test strip Ql (U)Ord ered By: Stephan Beard on 01-20-2025 Protein Ql (U) 15 mg/dl High Negative [facility] Serum globulin measurementOr dered By: Stephan dela cruz 01-20-2025 Globulin (S) [Mass/Vol] 2.7 g/dL 2.2-4.2 [facility] Serum or plasma alanine swenson otransferase (ALT) measurementOrdered By: Stephan Beard on 01-20-2025 ALT [Catalytic activity/Vol] U/L <35 [facility] Serum or plasma albumin taylor urement (mass/volume)Ordered By: Stephan Beard on 01-20-2025 Albumin [Mass/Vol] 3.6 g/dL 3.4-4.8 [facility] Serum or plasma albumin/glob ulin mass ratioOrdered By: Stephan Beard on 01-20-2025 Albumin/Globulin [Mass ratio] 1.4 {ratio} 0.9-2.4 [facility] Serum or plasma alkaline nhi sphatase measurementOrdered By: Stephan Beard on 01-20-2025 ALP [Catalytic activity/Vol] 51 U/L 35-104 [facility] Squamous epithelial cells de tection in urine sediment by light microscopyOrdered By: Stephan Beard on 01-20-2025 Epithelial cells.squamous LM Ql (Urine sed) 0 SEEN /hpf -10 [facility] TSH DL <= 0.005 mIU/L QnOrde red By: Stephan Beard on 01-20-2025 TSH Qn 1.900 uIU/mL 0.300-4.200 [facility] Thyroid Stim Hormone (TSH)on 01-20-2025 TSH 1.900 uIU/mL Normal 0.300-4.200 [facility] Comment on above: Performed By: #### L 503.0106, BTS, L500.4050, L100.0100, L501.9520 #### [facility] Laboratory [address] [place], [address] Total proteinOrdered By: Melchor Beard on 01-20-2025 Protein [Mass/Vol] 6.3 g/dL 5.9-8.4 [facility] Troponin T HS 2 HRon 025 Trop T High Sen 29 ng/L High <=14 [facility] Comment on above: Performed By: #### L 503.0106, BTS, L500.4050, L100.0100, L501.9520 #### [facility] Laboratory [address] [place], [address] Troponin T HS 4 HRon 025 Trop T High Sen 28 ng/L High <=14 [facility] Comment on above: Performed By: #### L 503.0106, BTS, L500.4050, L100.0100, L501.9520 #### [facility] Laboratory [address] [place], [address] Troponin T.cardiac [Mass/vol ume] in Serum or Plasma by High sensitivity methodOrdered By: Stephan Beard on 01-20-2025 Troponin T.cardiac High sensitivity method [Mass/Vol] 28 ng/L High <14 [facility] Troponin T.cardiac High sensitivity method [Mass/Vol] 29 ng/L High <14 [facility] Troponin T.cardiac High sensitivity method [Mass/Vol] 27 ng/L High <14 [facility] Type AND Screenon 01-20-2025 ABO and Rh group Nom (Bld) Blood group B Rh(D) positive Normal [facility] Comment on above: Order Comment: S Performed By: #### L 503.0106, BTS, L500.4050, L100.0100, L501.9520 #### [facility] Laboratory [address] [place], [address] Urinalysis, Completeon 01-20 BACTERIA 0 SEEN Normal None Seen [facility] Comment on above: Order Comment: CLEAN CATCH Performed By: #### L 503.0106, BTS, L500.4050, L100.0100, L501.9520 #### [facility] Laboratory [address] [place], [address] EPI,SQUAMOUS 0 SEEN Normal -10 [facility] Comment on above: Order Comment: CLEAN CATCH Performed By: #### L 503.0106, BTS, L500.4050, L100.0100, L501.9520 #### [facility] Laboratory [address] [place], [address] Mucus Ql (Urine sed) 0 SEEN Normal [facility] Comment on above: Order Comment: CLEAN CATCH Performed By: #### L 503.0106, BTS, L500.4050, L100.0100, L501.9520 #### [facility] Laboratory [address] [place], [address] RBC 0 SEEN Normal 0-5 [facility] Comment on above: Order Comment: CLEAN CATCH Performed By: #### L 503.0106, BTS, L500.4050, L100.0100, L501.9520 #### [facility] Laboratory [address] [place], [address] WBC 0 SEEN Normal 0-5 [facility] Comment on above: Order Comment: CLEAN CATCH Performed By: #### L 503.0106, BTS, L500.4050, L100.0100, L501.9520 #### [facility] Laboratory [address] [place], [address] Urine clarityOrdered By: Melchor Beard on 01-20-2025 Clarity (U) Sl. Cloudy Clear [facility] Urine color determinationOrd ered By: Stephan Beard on 01-20-2025 Color (U) Yellow Yellow [facility] Urine glucose detectionOrder ed By: Stephan Beard on 01-20-2025 Glucose Ql (U) Normal mg/dl Normal [facility] Urine leukocyte esterase det ection by dipstickOrdered By: Stephan Beard on 01-20-2025 Leukocyte esterase Test strip Ql (U) Negative Negative [facility] Urine pHOrdered By: Stephan hagen on 01-20-2025 pH (U) 6.5 [pH] 5.0 - 8.0 [facility] Urine sediment bacteria coun t by microscopy (number/high power field)Ordered By: Stephan Beard on 01-20-2025 Bacteria LM.HPF (Urine sed) [#/Area] 0 /[HPF] None Seen [facility] Urine specific gravity measu rementOrdered By: Stephan Beard on 01-20-2025 Specific gravity (U) [Rel density] 1.010 1.002-1.030 [facility] Urine urobilinogen measureme ntOrdered By: Stephan Beard on 01-20-2025 Urobilinogen Ql (U) Normal mg/dl Normal [facility] Vitamin B12on 01-20-2025 Cobalamin (Vitamin B12) [Mass/Vol] 1234 pg/mL High 180-914 [facility] Comment on above: Performed By: #### L 503.0106, BTS, L500.4050, L100.0100, L501.9520 #### [facility] Laboratory [address] [place], [address] Vitamin B12 ser/plasOrdered By: Stephan Beard on 01-20-2025 Cobalamin (Vitamin B12) [Mass/Vol] 1234 pg/mL High 180-914 [facility] White blood cell countOrdere d By: Stephan Beard on 01-20-2025 White blood cell count 0 SEEN /hpf 0-5 [facility] ALLIED HEALTHon 01-19-2025 ALLIED HEALTH HNO ID: [id number] Author: JANNIE MARTINES RT(R) Service: Radiology Author Type: Chemical Cell Changer Type: Allied Health Filed: 01/19/2025 21:08 Note Text: Radiology Service Progress Note PATIENT NAME: Monisha oChn DATE OF SERVICE: January 19, 2025 TIME: [...] PATIENT PRESENTS WITH AN IMPLANTABLE OR ATTACHED REGIONAL REHABILITATION DIRECTOR: No RADIOLOGY DEPARTMENT: CT; Exam(s) Completed: Brain and Spine . Anesthesia: No PERIPHERAL IV DATA: Not applicable SIGNED BY: Jannie Martines RT(R) January 19, 2025 9:08 PM Normal [facility] Basic metabolic 2000 panelon 01-19-2025 Anion gap [Moles/Vol] 11 mmol/L Normal 8-15 [facility] Comment on above: Order Comment: Speci men Type: BLOOD SPECIMEN Ordering Facility: [facility] Address: [address] [place] [address] Performed By: #### 2 4321-2 #### [facility] CLIA [id number] [address] [place] [address] [place] Calcium [Mass/Vol] 8.7 mg/dL Normal 8.5-10.2 [facility] Comment on above: Order Comment: Speci men Type: BLOOD SPECIMEN Ordering Facility: [facility] Address: [address] [place] [address] Performed By: #### 2 4321-2 #### [facility] CLIA [id number] [address] [place] [address] [place] Chloride [Moles/Vol] 100 mmol/L Normal 98-107 [facility] Comment on above: Order Comment: Speci men Type: BLOOD SPECIMEN Ordering Facility: [facility] Address: [address] [place] [address] Performed By: #### 2 4321-2 #### [facility] CLIA [id number] [address] [place] [address] [place] CO2 [Moles/Vol] 23 mmol/L Normal 22-30 [facility] Comment on above: Order Comment: Speci men Type: BLOOD SPECIMEN Ordering Facility: [facility] Address: [address] [place] [address] Performed By: #### 2 4321-2 #### [facility] CLIA [id number] [address] [place] [address] [place] Creatinine [Mass/Vol] 0.76 mg/dL Normal 0.58-0.96 [facility] Comment on above: Order Comment: Liza granados Type: BLOOD SPECIMEN Ordering Facility: [facility] Address: [address] [place] [address] Performed By: #### 2 4321-2 #### [facility] CLIA [id number] [address] [place] [address] [place] eGFRcr SerPlBld CKD-EPI 2020 78 mL/min/1.73m??? Normal >=60 [facility] Comment on above: Order Comment: Liza granados Type: BLOOD SPECIMEN Ordering Facility: [facility] Address: [address] [place] [address] Result Comment: Rachael mated Glomerular Filtration Rate [...] By: #### 2 4321-2 #### [facility] CLIA [id number] [address] [place] [address] [place] Glucose [Mass/Vol] 100 mg/dL High 74-99 [facility] Comment on above: Order Comment: Liza granados Type: BLOOD SPECIMEN Ordering Facility: [facility] Address: [address] [place] [address] Result Comment: The [place] Diabetes Association (ADA) provides guidance for cutoff [...] Standards of Medical Care in Diabetes 2016, Citizen [place] Diabetes Association. Diabetes Care. 2016.39(Suppl 1). Performed By: #### 2 4321-2 #### [facility] CLIA [id number] [address] [place] [address] [place] Potassium [Moles/Vol] 3.8 mmol/L Normal 3.7-5.1 [facility] Comment on above: Order Comment: Speci men Type: BLOOD SPECIMEN Ordering Facility: [facility] Address: [address] [place] [address] Performed By: #### 2 4321-2 #### [facility] CLIA [id number] [address] [place] [address] [place] Sodium [Moles/Vol] 134 mmol/L Low 136-144 [facility] Comment on above: Order Comment: Speci men Type: BLOOD SPECIMEN Ordering Facility: [facility] Address: [address] [place] [address] Performed By: #### 2 4321-2 #### [facility] CLIA [id number] [address] [place] [address] [place] Urea nitrogen [Mass/Vol] 14 mg/dL Normal 7-21 [facility] Comment on above: Order Comment: Speci men Type: BLOOD SPECIMEN Ordering Facility: [facility] Address: [address] [place] [address] Performed By: #### 2 4321-2 #### [facility] CLIA [id number] [address] [place] CBC W Auto Differential pane l (Bld)on 01-19-2025 Basophils (Bld) [#/Vol] 10*3/uL Normal <0.[address] [facility] Comment on above: Order Comment: Speci men Type: BLOOD SPECIMEN Ordering Facility: [facility] Address: [address] [place] [address] Performed By: #### 5 7021-8 #### [facility] CLIA [id number] [address] [place] [address] [facility] [place] Basophils/100 WBC (Bld) 0.3 % Normal [facility] Comment on above: Order Comment: Speci men Type: BLOOD SPECIMEN Ordering Facility: [facility] Address: [address] [place] [address] Performed By: #### 5 7021-8 #### [facility] CLIA [id number] [address] [place] [address] [place] Differential cell count method Nom (Bld) Auto Normal [facility] Comment on above: Order Comment: Speci men Type: BLOOD SPECIMEN Ordering Facility: [facility] Address: [address] [place] [address] Performed By: #### 5 7021-8 #### [facility] CLIA [id number] [address] [place] [address] [place] Eosinophils (Bld) [#/Vol] 10*3/uL Normal <0.46 [facility] Comment on above: Order Comment: Speci men Type: BLOOD SPECIMEN Ordering Facility: [facility] Address: [address] [place] [address] Performed By: #### 5 7021-8 #### [facility] CLIA [id number] [address] [place] [address] [place] Eosinophils/100 WBC (Bld) 0.3 % Normal [facility] Comment on above: Order Comment: Speci men Type: BLOOD SPECIMEN Ordering Facility: [facility] Address: [address] [place] [address] Performed By: #### 5 7021-8 #### [facility] CLIA [id number] [address] [place] [address] [place] Erythrocyte distribution width (RBC) [Ratio] 13.1 % Normal 11.5-15.0 [facility] Comment on above: Order Comment: Speci men Type: BLOOD SPECIMEN Ordering Facility: [facility] Address: [address] [place] [address] Performed By: #### 5 7021-8 #### [facility] CLIA [id number] [address] [place] [address] [place] Hematocrit (Bld) [Volume fraction] 35.9 % Low 36.0-46.0 [facility] Comment on above: Order Comment: Speci men Type: BLOOD SPECIMEN Ordering Facility: [facility] Address: [address] [place] [address] Performed By: #### 5 7021-8 #### [facility] CLIA [id number] [address] [place] [address] [place] Hemoglobin (Bld) [Mass/Vol] 11.3 g/dL Low 11.5-15.5 [facility] Comment on above: Order Comment: Speci men Type: BLOOD SPECIMEN Ordering Facility: [facility] Address: [address] [place] [address] Performed By: #### 5 7021-8 #### [facility] CLIA [id number] [address] [place] [address] [place] Immature granulocytes (Bld) [#/Vol] 10*3/uL Normal <0.10 [facility] Comment on above: Order Comment: Speci men Type: BLOOD SPECIMEN Ordering Facility: [facility] Address: [address] [place] [address] Performed By: #### 5 7021-8 #### [facility] CLIA [id number] [address] [place] [address] [place] Immature granulocytes/100 WBC (Bld) 0.6 % Normal [facility] Comment on above: Order Comment: Speci men Type: BLOOD SPECIMEN Ordering Facility: [facility] Address: [address] [place] [address] Performed By: #### 5 7021-8 #### [facility] CLIA [id number] [address] [place] [address] [place] Lymphocytes (Bld) [#/Vol] 1.32 10*3/uL Normal 1.00-4.00 [facility] Comment on above: Order Comment: Speci men Type: BLOOD SPECIMEN Ordering Facility: [facility] Address: [address] [place] [address] Performed By: #### 5 7021-8 #### [facility] CLIA [id number] [address] [place] [address] [facility] Lymphocytes/100 WBC (Bld) 40.6 % Normal [facility] Comment on above: Order Comment: Speci men Type: BLOOD SPECIMEN Ordering Facility: [facility] Address: [address] [place] [address] Performed By: #### 5 7021-8 #### [facility] CLIA [id number] [address] [place], [place] [address] [place] [address] MCH (RBC) [Entitic mass] 27.8 pg Normal 26.0-34.0 [facility] Comment on above: Order Comment: Speci men Type: BLOOD SPECIMEN Ordering Facility: [facility] Address: [address] [place] [address] Performed By: #### 5 7021-8 #### [facility] CLIA [id number] [address] [place], [place] [address] [place] [address] MCHC (RBC) [Mass/Vol] 31.5 g/dL Normal 30.5-36.0 [facility] Comment on above: Order Comment: Speci men Type: BLOOD SPECIMEN Ordering Facility: [facility] Address: [address] [place] [address] Performed By: #### 5 7021-8 #### [facility] CLIA [id number] [address] [place], [place] [address] [place] [address] [place] MCV (RBC) [Entitic vol] 88.4 fL Normal 80.0-100.[address] [facility] Comment on above: Order Comment: Speci men Type: BLOOD SPECIMEN Ordering Facility: [facility] Address: [address] [place] [address] Performed By: #### 5 7021-8 #### [facility] CLIA [id number] [address] [place] [address] [facility] Monocytes (Bld) [#/Vol] 0.42 10*3/uL Normal <0.87 [facility] Comment on above: Order Comment: Speci men Type: BLOOD SPECIMEN Ordering Facility: [facility] Address: [address] [place] [address] Performed By: #### 5 7021-8 #### [facility] CLIA [id number] [address] [place] [address] [place] Monocytes/100 WBC (Bld) 12.9 % Normal [facility] Comment on above: Order Comment: Speci men Type: BLOOD SPECIMEN Ordering Facility: [facility] Address: [address] [place] [address] Performed By: #### 5 7021-8 #### [facility] CLIA [id number] [address] [place] [address] [place] Neutrophils (Bld) [#/Vol] 1.47 10*3/uL Normal 1.45-7.50 [facility] Comment on above: Order Comment: Speci men Type: BLOOD SPECIMEN Ordering Facility: [facility] Address: [address] [place] [address] Performed By: #### 5 7021-8 #### [facility] CLIA [id number] [address] [place] [address] [place] Neutrophils/100 WBC (Bld) 45.3 % Normal [facility] Comment on above: Order Comment: Speci men Type: BLOOD SPECIMEN Ordering Facility: [facility] Address: [address] [place] [address] Performed By: #### 5 7021-8 #### [facility] CLIA [id number] [address] [place] [address] [place] Nucleated RBC (Bld) [#/Vol] Normal [facility] Comment on above: Order Comment: Speci men Type: BLOOD SPECIMEN Ordering Facility: [facility] Address: [address] [place] [address] Performed By: #### 5 7021-8 #### [facility] CLIA [id number] [address] [place] [address] [place] Nucleated RBC/100 WBC (Bld) [Ratio] Normal [facility] Comment on above: Order Comment: Speci men Type: BLOOD SPECIMEN Ordering Facility: [facility] Address: [address] [place] [address] Performed By: #### 5 7021-8 #### [facility] CLIA [id number] [address] [place] [address] [place] Platelet mean volume (Bld) [Entitic vol] 8.3 fL Low 9.0-12.7 [facility] Comment on above: Order Comment: Speci men Type: BLOOD SPECIMEN Ordering Facility: [facility] Address: [address] [place] [address] Performed By: #### 5 7021-8 #### [facility] CLIA [id number] [address] [place] [address] [place] Platelets (Bld) [#/Vol] 238 10*3/uL Normal 150-400 [facility] Comment on above: Order Comment: Speci men Type: BLOOD SPECIMEN Ordering Facility: [facility] Address: [address] [place] [address] Performed By: #### 5 7021-8 #### [facility] CLIA [id number] [address] [place] [address] [place] RBC (Bld) [#/Vol] 4.06 10*6/uL Normal 3.90-5.20 [facility] Comment on above: Order Comment: Speci men Type: BLOOD SPECIMEN Ordering Facility: [facility] Address: [address] [place] [address] Performed By: #### 5 7021-8 #### [facility] CLIA [id number] [address] [place] [address] [place] WBC (Bld) [#/Vol] 3.25 10*3/uL Low 3.70-11.00 [facility] Comment on above: Order Comment: Speci men Type: BLOOD SPECIMEN Ordering Facility: [facility] Address: [address] [place] [address] Performed By: #### 5 7021-8 #### [facility] CLIA [id number] [address] [place] [address] [place] [address] BRAIN WO IVCONon 01-20-20 CT BRAIN WO IVCON * * *Final Report* * * DATE OF EXAM: Jan 19 2025 9:04PM [facility] 0504 - CT BRAIN WO IVCON / PROCEDURE REASON: Head trauma, moderate-severe * * * * Physician Interpretation * * * * EXAMINATION: CT BRAIN WO IVCON, CT CERVICAL SPINE WO IVCON CLINICAL HISTORY: Head trauma, moderate-severe - - Head trauma, moderate-severe (accession [id number]), Neck trauma, uncomplicated (NEXUS/CCR neg) (Age 16-64y) (accession [id number]) - TECHNIQUE: CT head and cervical spine without contrast. MQ: CTBCSWO_3 Dose-Length Product (DLP): 706.22 (accession [id number]), 154.36 (accession [id number]) mGy*cm CT Dose Reduction Employed: Automated exposure [...] vertebrae with counting from the craniocervical junction. Data Miner: PSCB Transcribe Date/Time: Jan 19 2025 9:06P Dictated by : KERRIE WARNER MD This examination was interpreted and the report reviewed and electronically signed by: KERRIE WARNER MD on Jan 19 2025 9:15PM EST [id number] Normal [facility] CT CERVICAL SPINE WO IVCONon 01-19-2025 CT CERVICAL SPINE WO IVCON * * *Final Report* * * DATE OF EXAM: Jan 19 2025 9:04PM [facility] 0505 - CT CERVICAL SPINE WO IVCON / PROCEDURE REASON: Neck trauma, uncomplicated (NEXUS/CCR neg) (Age 16-64y) * * * * Physician Interpretation * * * * EXAMINATION: CT BRAIN WO IVCON, CT CERVICAL SPINE WO IVCON CLINICAL HISTORY: Head trauma, moderate-severe - - Head trauma, moderate-severe (accession [id number]), Neck trauma, uncomplicated (NEXUS/CCR neg) (Age 16-64y) (accession [id number]) - TECHNIQUE: CT head and cervical spine without contrast. MQ: CTBCSWO_3 Dose-Length Product (DLP): 706.22 (accession [id number]), 154.36 (accession [id number]) mGy*cm CT Dose Reduction Employed: Automated exposure [...] vertebrae with counting from the craniocervical junction. Data Miner: PSCB Transcribe Date/Time: Jan 19 2025 9:06P Dictated by : KERRIE WARNER MD This examination was interpreted and the report reviewed and electronically signed by: KERRIE WARNER MD on Jan 19 2025 9:15PM EST [id number] [facility] ED NOTEon 01-19-2025 ED NOTE HNO ID: [id number] Author: FLORIDALMA SZYMANSKI RN Service: Emergency Medicine Author Type: Registered Nurse Type: ED Notes Filed: 01/19/2025 23:50 Note Text: Oxygen started at 2L/NC per request from Dr. Maurer for sats staying around 90% on RA [facility] ED NOTE HNO ID: [id number] Author: FLORIDALMA SZYMANSKI RN Service: Emergency Medicine Author Type: Registered Nurse Type: ED Notes Filed: 01/19/2025 23:45 Note Text: Patient informed: the name of medication, why we are giving it, possible side effects, what they may expect to feel, and was offered a chance to ask questions, prior to the administration of fentanyl [facility] ED NOTE HNO ID: [id number] Author: FLORIDALMA SZYMANSKI, RN Service: Emergency Medicine Author Type: Registered Nurse Type: ED Notes Filed: 01/19/2025 23:08 Note Text: Called [facility] for transport eta 1 hour [facility] ED NOTE HNO ID: [id number] Author: FLORIDALMA SZYMANSKI RN Service: Emergency Medicine Author Type: Registered Nurse Type: ED Notes Filed: 01/19/2025 23:04 Note Text: Nursing policy change clerks supervisor from [facility] called with bed assignment -[facility] 309 -report number [phone] -accepted per Dr. Peters [facility] ED NOTE HNO ID: [id number] Author: FLORIDALMA SZYMANSKI, AUGUSTIN Service: Emergency Medicine Author Type: Registered Nurse Type: ED Notes Filed: 01/19/2025 22:38 Note Text: Drr. Maurer speaking with kimber [facility] education liaison for Dr. Grier from [facility] per pt request Normal [facility] ED NOTE HNO ID: [id number] Author: DWIGHT YOUNGER, AUGUSTIN Service: ? Author Type: Registered Nurse Type: ED Notes Filed: 01/19/2025 19:00 Note Text: Pt fell from standing position while she was at dinner at the long term. Pt hit her head but denies loc, but does have dizziness. Pt c/o pain in r hand and r hip. Pt is also positive for covid Normal [facility] ED PROV NOTEon 01-19-2025 ED PROV NOTE HNO ID: [id number] Author: RUSSEL MAURER MD Service: Emergency Medicine [...] (more content not included)... Normal [facility] XR CHEST 1V FRONTALon 2024 XR [...] and spine. IMPRESSION: No acute radiographic abnormality. Data Miner: EMMY Transcribe Date/Time: Jan 19 2025 10:19P Dictated by : CYN MORGAN DO This examination was interpreted and the report reviewed and electronically signed by: CYN MORGAN DO on Jan 19 2025 10:19PM EST [id number] Normal [facility] XR HAND 3V PA/LAT/OBL RTon 1 [...] PELV+ AP/LAT RT CLINICAL HISTORY: Trauma (accession [id number]), Hip pain, acute, fx suspected, initial exam (accession [id number]) Technique: XR HAND 3V PA/LAT/OBL RT, XR [...] concerning for impacted right femoral neck fracture. Data Miner: PSCB Transcribe Date/Time: Jan 19 2025 10:16P Dictated by : JANNIE TOMLINSON MD This examination was interpreted and the report reviewed and electronically signed by: JANNIE TOMLINSON MD on Jan 19 2025 10:19PM EST [id number] Normal [facility] XR HIP 3V PELV+ AP/LAT RTon [...] PELV+ AP/LAT RT CLINICAL HISTORY: Trauma (accession [id number]), Hip pain, acute, fx suspected, initial exam (accession [id number]) Technique: XR HAND 3V PA/LAT/OBL RT, XR [...] concerning for impacted right femoral neck fracture. Data Miner: PSCB Transcribe Date/Time: Jan 19 2025 10:16P Dictated by : JANNIE TOMLINSON MD This examination was interpreted and the report reviewed and electronically signed by: JANNIE TOMLINSON MD on Jan 19 2025 10:19PM EST [id number] [facility] ([id number]) 1940 F Date Time Provider Department 12/29/24 [...] Status:Closed by ISABEL JOYA on 12/29/24 Normal [facility] Laboratory - Chemistry and C hemistry - challengeOrdered By: Alexandria Dejesus on 12-28-2024 Bilirubin Ql (U) Negative [facility] Glucose Ql (U) Negative [facility] Ketones Ql (U) Negative [facility] pH (U) 6 [pH] [facility] Specific gravity (U) [Rel density] 1.015 [facility] Urobilinogen (U) [Mass/Vol] Negative [facility] Laboratory - Hematology and Cell countsOrdered By: Alexandria Dejesus on 12-28-2024 Hemoglobin Ql (U) Negative [facility] Laboratory - UrinalysisOrder ed By: Alexandria Dejesus on 12-28-2024 Nitrite Ql (U) Negative [facility] Protein Ql (U) Trace [facility] MR/Beau 12-28-2024 /BOUBACAR [facility] [address], [address] [place] [address] OFFICE VISIT Date of Service: 12/28/24 MR#: [id number] Acct: [id number] Name: MONISHA COHN Rep #: [id number] : 1940 Provider: Dr. 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 Normal [facility] No Panel InformationOrdered By: Alexandria Dejesus on 12-28-2024 Urine Leukocytes Negatve [facility] Urine Non-Hemolyzed Blood Negative [facility] Cardiovascular stress test r eportOrdered By: Danielle Vernon on 11-07-2024 Study report [facility] [address] [place] [address] MR#: [id number] Acct: [id number] Name: MONISHA COHN Rep #: [id number] : 1940 84 From: Danielle Vernon [...] be obtained. This note was generated with Se[employer] dictation software. It may contain incorrectwords, spelling, and punctuation that were not noted in checking the note beforesigning. 11/07/241427 Date _ Danielle Vernon MD CC: Dr. Danielle Vernon MD; Tressa Bobby ~ Date Dictated: 11/07/241426 Date Transcribed: 11/07/241426 Data Miner: EVANGELINA Wiseman [facility] Work Phone: Echocardiogram study reportO rdered By: Danielle Vernon on 11-07-2024 Study report [facility] [address] [place] [address] Echo Complete 11/03/24928 MR#: [id number] Acct: [id number] Name: MONISHA COHN Rep #:[id number] : 1940 84 From: Danielle Vernon MD Attending Dr: Dr. Danielle Vernon MD Status: REG CLI Ordering Dr: Danielle Vernon MD Date: Location: [facility] Sex: F C Admitted: Reason For [...] Walker RCS 11/07/24 1248 Date _ Danielle Vrenon MD CC: Dr. Danielle Vernon MD; Tressa Rosales ~ Date Dictated: 11/03/24928 Date Transcribed: 07/28/25 1248 Data Miner: Signed [facility] Work Phone: Stress Reporton 11-07-2024 Stress Report [facility] [place] [address] [place] [address] MR#: [id number] Acct: [id number] Name: MONISHA COHN Rep #: [id number] : 1940 84 From: Danielle Vernon MD [...] be obtained. This note was generated with Boxation software. It may contain incorrect words, spelling, and punctuation that were not noted in checking the note before signing. 11/07/241427 Date Danielle Vernon MD CC: Dr. Danielle Vernon MD; Tressa Rosales Date Dictated: 11/07/241426 Date Transcribed: 11/07/241426 Data Miner: EVANGELINA Signed Normal [facility] Echo Completeon 11-03-2024 Echo Complete [facility] [address] [place] [address] Echo Complete 11/03/24 0929 MR#: [id number] Acct: [id number] Name: MONISHA COHN Rep #: [id number] : 1940 84 From: Danielle Vernon MD Attending Dr: Dr. Danielle Vernon MD Status: REG CLI Ordering Dr: Danielle Vernon MD Date: 11/03/24 Location: [facility] Sex: F C Admitted: Reason For [...] Bobby Date Dictated: 11/03/24928 Date Transcribed: 11/07/241247 Data Miner: Signed Normal [facility] Cardiology Visit Reporton Cardiology Visit Report [facility] [address] [place] [address] OFFICE VISIT Date of Service: 09/27/24 MR#: [id number] Acct: [id number] Name: MONISHA COHN Rep #: [id number] : 1940 Provider: Dr. Danielle Vernon MD Age/Sex: 84/F Location: [facility] Status: Signed HPI HPI History [...] NIBP Intake Visit Reasons: 6 M FU Costume Design Teacher Required: No Accompanied by: Is patient in [...] past year?: Yes (no major injuries; 2) [facility] Medical History Atherosclerotic heart disease of [place] coronary artery without angina pectoris Bladder spasms [...] for fatigue (more content not included)... Normal [facility] CNOVon 07-29-2024 CNOV Office Visit (NMMBHT ) MONISHA COHN ([id number]) 1940 F Date Time Provider Department 07/29/24 3:00 PM ARMEN MADISON During your visit today, we recorded the following information about you: Pulse Blood pressure 68/minute 110/65 Armen Madison MD 07/29/2024 3:33 PM Signed [facility] New Patient Visit Note Consultation [...] further r (more content not included)... Normal [facility] Folate SerPl-mCncon 07-30-19 25 Folate [Mass/Vol] 6.2 ng/mL Normal >4.7 [facility] Comment on above: Order Comment: Liza granados Type: BLOOD SPECIMEN Ordering Facility: [facility] Address: [address] [place] [address] Performed By: #### 2 284-8, 2132-9 #### [facility] CLIA [id number] [address] [place] [address] [place] HbA1c (Bld)on 07-29-2024 Average glucose Estimated from glycated hemoglobin (Bld) [Mass/Vol] 100 mg/dL Normal [facility] Comment on above: Order Comment: Liza granados Type: BLOOD SPECIMEN Ordering Facility: [facility] Address: [address] [place] [address] Result Comment: eAG: (Estimated average glucose) is a calculated value from HgbA1c and is member service representative of the average blood glucose level in the last 2-3 month period. Performed By: #### 5 5454-3 #### [facility] CLIA [id number] [address] [place] [address] [place] HbA1c (Bld) [Mass fraction] 5.1 % Normal 4.3-5.6 [facility] Comment on above: Order Comment: Liza granados Type: BLOOD SPECIMEN Ordering Facility: [facility] Address: [address] [place] [address] Result Comment: Amer [place] Diabetes Association guidelines indicate that patients with HgbA1c in the range 5.7-6.4% are at increased risk for development of diabetes, and intervention by lifestyle modification may be beneficial. HgbA1c greater or equal to 6.5% is considered diagnostic of diabetes. Performed By: #### 5 5454-3 #### [facility] CLIA [id number] [address] [place] [address] IMMUNOFIXATION SCREEN, SERUM on 07-29-2024 INTERPRETATION (MPA) Atypical restricted bands are present in the IgG and lambda regions. Consistent with IgG lambda monoclonal gammopathy. Normal [facility] Comment on above: Order Comment: Liza granados Type: BLOOD SPECIMEN Order[facility] Facility: [facility] Address: [address] [place] [address] Performed By: #### I FESC #### [facility] CLIA [id number] [address] [place] [address] STATES OF [facility] MPA RESULT M protein is present. Abnormal No M p rotein is identified. [facility] Comment on above: Order Comment: Liza granados Type: BLOOD SPECIMEN Ordering Facility: [facility] Address: [address] [place] [address] Performed By: #### I FESC #### [facility] CLIA [id number] [address] [place] [address] OF [facility] STAFF REVIEW (MPA) Reviewed by Beatriz Estes M.D., Ph.D Normal [facility] Comment on above: Order Comment: Liza granados Type: BLOOD SPECIMEN Ordering Facility: [facility] Address: [address] [place] [address] Performed By: #### I FESC #### [facility] CLIA [id number] [address] [place], [place] [address] [place] KAPPA/ZIMMERMAN,FREE,SERon 2024 Immunoglobulin light chains.kappa.free (S) [Mass/Vol] 20.0 mg/L High 3.3-19.4 [facility] Comment on above: Order Comment: Speci roberta Type: BLOOD SPECIMEN Ordering Facility: [facility] Address: [address] [place] [address] Result Comment: Rare ly, increased serum free light chains levels may not be detected or accurately quantified due to prozone phenomenon or in high viscosity samples using this immunoturbidimetric assay. Correlation with other laboratory results and clinical findings is recommended. The [place] Free Light Chain was performed using the Binding Site Optilite immunoturbidimetric method. Result obtained with different assay methods or kits cannot be used interchangeably. Performed By: #### K LFRS #### [facility] CLIA [id number] [address] [place] [address] [place] Immunoglobulin light chains.kappa/Immunoglobu lacey light chains.lambda (S) [Mass ratio] 0.16 Low 0.26-1.65 [facility] Comment on above: Order Comment: Specmiguel granados Type: BLOOD SPECIMEN Ordering Facility: [facility] Address: [address] [place] [address] Performed By: #### K LFRS #### [facility] CLIA [id number] [address] [place] [address] [place] Immunoglobulin light chains.lambda.free [Mass/Vol] 121.8 mg/L High 5.7-26.3 [facility] Comment on above: Order Comment: Liza granados Type: BLOOD SPECIMEN Ordering Facility: [facility] Address: [address] [place] [address] Result Comment: Rare ly, increased serum free [...] interchangeably. Performed By: #### K LFRS #### [facility] CLIA [id number] [address] [place] [address] [place] Methylmalonate SerPl-sCncon 07-29-2024 Methylmalonate [Moles/Vol] 0.18 umol/L Normal <=0.40 [facility] Comment on above: Order Comment: Liza granados Type: BLOOD SPECIMEN Ordering Facility: [facility] Address: [address] [place] [address] Result Comment: This test was developed, and its performance characteristics determined by the [facility] Department of Pathology and Laboratory Medicine. It has not been cleared or approved by the FDA. The [facility] Department of Pathology and Laboratory Medicine is regulated under CLIA as qualified to perform high-complexity testing. This test is used for clinical purposes. It should not be regarded as investigational or for research. Performed By: #### 1 3964-2 #### [facility] CLIA [id number] [address] [place] [address] [place] VITAMIN B1 (THIAMINE), WHOLE BLOODon 07-29-2024 Thiamine (Bld) [Moles/Vol] 118.7 nmol/L Normal 84.3-213.3 [facility] Comment on above: Order Comment: Liza granados Type: BLOOD SPECIMEN Ordering Facility: [facility] Address: [address] [place] [address] Result Comment: This assay measures the concentration of thiamine diphosphate (TDP), the primary active form of vitamin B1. Approximately 90 percent of vitamin B1 present in whole blood is TDP. Thiamine and thiamine monophosphate, which comprise the remaining 10 percent, are not measured. This test was developed, and its performance characteristics determined by the [facility] Department of Pathology and Laboratory Medicine. It has not been cleared or approved by the FDA. The [facility] Department of Pathology and Laboratory Medicine is regulated under CLIA as qualified to perform high-complexity testing. This test is used for clinical purposes. It should not be regarded as investigational or for research. Performed By: #### B 1WB #### [facility] CLIA [id number] [address] [place] [address] [place] Vit B12 SerPl-mCncon 025 Cobalamin (Vitamin B12) [Mass/Vol] 876 pg/mL Normal 232-1245 [facility] Comment on above: Order Comment: Speci men Type: BLOOD SPECIMEN Ordering Facility: [facility] Address: [address] [place] [address] Performed By: #### 2 284-8, 2132-9 #### [facility] CLIA [id number] [address] [place] [address] CNOVon 06-28-2024 CNOV Office Visit (NRMDN) MONISHA COHN ([id number]) 1940 F Date Time Provider Department 06/28/24 8:00 AM EM FLYNN NRHANH During your visit today, we recorded the following information about you: Pulse Blood pressure Weight Height 76/minute 112/74 70.5 kg 1.575 m Em Flynn APRN.CNP 06/28/2024 11:22 PM Signed [facility] - FOLLOW UP EVALUATION The patient consented to the use of ambient [employer] software for draft documentation of the visit consistent with [facility]?s Notice of Privacy Practices. Alexandra Arreguin APRN.BIOLOGY LECTURER [address] [address] Dear Alexandra Arreguin APRN.BIOLOGY LECTURER: I had the pleasure of seeing Ms. [...] directives (living will and durable power of ip attorney for healthcare): By Email: Send your document(s) to [email or web address] as an attachment in either PDF, TIFF, or JPEG format. By Mail: [facility] Information Management, [employer] Advance Directive Processing [address] [place], [place] [address] By In person at any [facility] location Please note: You can use the address or fax number regardless of which [facility] you utilize, and we will make [...] she find (more content not included)... Normal [facility] Hepatobilliary Img w/Pharm I nton 06-03-2024 Hepatobilliary Img w/Pharm Int [facility] Services [address] [place], [place] [address] Hepatobilliary Img w/Pharm Int MR#: [id number] Acct: [id number] Name: MONISHA COHN Rep #: [id number] : 1940 F 84 From: Hong byrne MD PCP: Tressa Rosales Status: REG CLI Study: Hepatobilliary Img w/Pharm Int Date of Exam: 0 06/03/24 Exam# [id number] Ordering Dr: Didi Lujan [facility] N P-C PROCEDURE: HEPATOBILLIARY IMG W/PHARM INT [...] SCAN AND GALLBLADDER EJECTION FRACTION. Reading Location: [place] [address] CC: Didi Lujan; Tressa Rosales Data Miner: Signed Normal [facility] Cardiology Visit Reporton Cardiology Visit Report [facility] [address] [place] [address] OFFICE VISIT Date of Service: 03/16/24 MR#: [id number] Acct: [id number] Name: MONISHA COHN Rep #: [id number] : 1940 Provider: Dr. Danielle Vernon MD Age/Sex: 83/F Location: [facility] Status: Signed HPI HPI History [...] NIBP Intake Visit Reasons: 6 M FU Costume Design Teacher Required: No Accompanied by: Is patient in [...] denosumab 60 mg/mL subcutaneous 60 mg subcut [id number] 03/16/24 03/16/24 History syringe hydroxyzine HCl 25 [...] in the past year?: Yes (Hip Fx) [facility] Medical History Atherosclerotic heart disease of chilkoot coronary artery without angina pectoris Bladder spasms [...] distress and (more content not included)... Normal [facility] Large Joint Arthro/Inj: L sh [...] the patient voiced understanding of these instructions. [facility] XR Shoulder - left 3 Viewson 10-01-2023 IMPRESSION: Degenerative changes with chronic rotator cuff tear. Data Miner: [facility] Transcribe Date/Time: Oct 01 2023 6:45A Dictated by : SHENA OAKLEY MD This examination was interpreted and the report reviewed and electronically signed by: SHENA OAKLEY MD on Oct 01 2023 6:46AM EST [facility] * * *Final Report* * * [...] rotator cuff tear. No fracture or dislocation. [facility] Provider, [facility] - 10/01/2023 * * *Final Report* * [...] Degenerative changes with chronic rotator cuff tear. Data Miner: EMMY Transcribe Date/Time: Oct 01 2023 6:45A Dictated by : SHENA OAKLEY MD This examination was interpreted and the report reviewed and electronically signed by: SHENA OAKLEY MD on Oct 01 2023 6:46AM EST [facility] XR Shoulder - left 3 ViewsOr dered By: Ccf Provider on 10-01-2023 [facility] XR SHLDR >/=3V AP/KIERA AP/OTH R LTon [...] Degenerative changes with chronic rotator cuff tear. Data Miner: PSCB Transcribe Date/Time: Oct 01 2023 6:45A Dictated by : SHENA OAKLEY MD This examination was interpreted and the report reviewed and electronically signed by: SHENA OAKLEY MD on Oct 01 2023 6:46AM EST [id number] [facility] XR Shoulder - left 3 Viewson 09-29-2023 [facility]iology [facility]ative[facility] W JOHN PAUL LTon 024 [facility] DIAG W JOHN PAUL LT * * *Final Report* * * DATE OF EXAM: Sep 23 2023 9:39AM JOSÉ LUIS 0628 - [facility] DIAG W JOHN PAUL LT / PROCEDURE REASON: R92.2 INCONCLUSIVE MAMMOGRAM * * * * Physician Interpretation * * * * #[id number] - [facility] DIAG W JOH NPAUL LT #[id number] - [facility] BREAST LTD LT UNILATERAL LEFT DIGITAL DIAGNOSTIC [...] Comparison is made to exam dated: 08/13/2023 [facility]. The left breast is almost entirely fatty. [...] Comparison is made to exam dated: 08/13/2023 [facility]. Ultrasound of was performed. Imaging was done [...] Health, Family Medicine, and Medical/Surgical Oncology, the [facility] has carefully reviewed the data and reached [...] providers when to stop screening mammograms. Medical Care Evaluation Specialist(s): Rafia Wagner RT(R)(M), [facility]; RT Nicole(R), [facility] OVERALL STUDY BIRADS: 2 Benign finding Data Miner: Gi Transcribe Date/Time: Sep 23 2023 9:21A Dictated by : AJAY BULLOCK MD This examination was interpreted and the report reviewed and electronically signed by: AJAY BULLOCK MD on Sep 23 2023 10:55AM EST [id number] Normal [facility] US BREAST LTD LTon 09-22 [facility] BREAST LTD LT * * *Final Report* * * DATE OF EXAM: Sep 23 2023 10:32AM JASPREET 0593 - [facility] BREAST LTD LT / PROCEDURE REASON: Abnormal mammogram * * * * Physician Interpretation * * * * #[id number] - [facility] DIAG W JOHN PAUL LT #[id number] - [facility] BREAST LTD LT UNILATERAL LEFT DIGITAL DIAGNOSTIC [...] exam dated: 08/13/2023 mammogram - [facility]. The left breast is almost entirely [...] exam dated: 08/13/2023 mammogram - [facility]. Ultrasound of was performed. Imaging was [...] mammogram screening schedule is recommended. Ajay BENITEZ, [facility]/gi:09/23/2023 10:55:35 Multiple national specialty organizations have released breast cancer screening guidelines for women at average risk for developing breast cancer - guidelines that are based on both evidence and opinion, yet differ on when to start and how often to screen for breast cancer. With representation from Breast Imaging, Internal Medicine, Women's Health, Family Medicine, and Medical/Surgical Oncology, the [facility] has carefully reviewed the data and reached [...] providers when to stop screening mammograms. Medical Care Evaluation Specialist(s): Rafia Wagner RT(R)(M), [facility]; RT Nicole(R), [facility] OVERALL STUDY BIRADS: 2 Benign finding Data Miner: Gi Transcribe Date/Time: Sep 23 2023 9:21A Dictated by : AJAY BULLOCK MD This examination was interpreted and the report reviewed and electronically signed by: AJAY BULLOCK MD on Sep 23 2023 10:55AM EST [id number] Normal [facility] US Breast - left limitedon 0 09-23-2023 * * *Final Report* * * DATE OF EXAM: Sep 23 2023 10:32AM JASPREET 0593 - [facility] BREAST LTD LT / PROCEDURE REASON: Abnormal mammogram * * * * Physician Interpretation * * * * #[id number] - [facility] DIAG W JOHN PAUL LT #[id number] - [facility] US BREAST LTD LT UNILATERAL LEFT [...] exam dated: 08/13/2023 mammogram - [facility]. The left breast is almost entirely [...] other findings are seen in the breast. [facility] Provider, Marko Luther [place] - 09/23/2023 * * *Final Report* * * DATE OF EXAM: Sep 23 2023 10:32AM JASPREET 0593 - [facility] Merfac LTD LT / PROCEDURE REASON: Abnormal mammogram * * * * Physician Interpretation * * * * #[id number] - [facility] DIAG W JOHN PAUL LT #[id number] - [facility] BREAST LTD LT UNILATERAL LEFT DIGITAL DIAGNOSTIC [...] Comparison is made to exam dated: 08/13/2023 [facility]. The left breast is almost entirely fatty. [...] Comparison is made to exam dated: 08/13/2023 [facility]. Ultrasound of was performed. Imaging was done [...] schedule is recommended. Ajay Bullock M.D. FACR, [facility]/gi:09/23/2023 10:55:35 Multiple national specialty organizations have released breast cancer screening guidelines for women at average risk for developing breast cancer - guidelines that are based on both evidence and opinion, yet differ on when to start and how often to screen for breast cancer. With representation from Breast Imaging, Internal Medicine, Women's Health, Family Medicine, and Medical/Surgical Oncology, the [facility] has carefully reviewed the data and reached [...] providers when to stop screening mammograms. Medical Care Evaluation Specialist(s): RT Yumiko(R)(M), [facility]; RT Nicole(R), [facility] OVERALL STUDY BIRADS: 2 Benign finding Data Miner: Gi Transcribe Date/Time: Sep 23 2023 9:21A Dictated by : AJAY BULLOCK MD This examination was interpreted and the report reviewed and electronically signed by: AJAY BULLOCK MD on Sep 23 2023 10:55AM EST [facility] Radiology Study observation (narrative) [facility] US Breast - left limitedOrde red By: Ccf Provider on 09-23-2023 [facility] BD DXA - AXIAL SKELETONon BD DXA [...] years, Gender: Female SCANNER INFORMATION: DXA Model: [employer] [id number] Date Scanned: 08/13/2023 2:25 PM CLINICAL HISTORY: [...] had a previous bone density in the [facility] or the previous bone density was performed on a different DXA machine (new, updated model or different location) within the [facility]. VERTEBRAL FRACTURE ASSESSMENT Not performed. [...] FOR MORE INFORMATION ABOUT DIAGNOSIS AND TREATMENT: [facility] Center for Osteoporosis and Metabolic Bone Disease:? www.ccf.org/arthritis/ osteo National Osteoporosis Foundation:? www.nof.org International Society of Clinical Densitometry www.iscd.org Data Miner: EMMY Transcribe Date/Time: Aug 14 2023 8:30A Dictated by : SHENA OAKLEY MD This examination was interpreted and the report reviewed and electronically signed by: SHENA OAKLEY MD on Aug 14 2023 8:31AM EST [id number] -3.[address] [facility] SCREENINGon 08-13-2023 [facility] SCREENING * * *Final Report* * * DATE OF EXAM: Aug 13 2023 2:10PM JOSÉ LUIS 0581 - [facility] SCREENING / PROCEDURE REASON: Z12.31 SCREENING MAMMOGRAM * * * * Physician Interpretation * * * * #[id number] - [facility] SCREENING BILATERAL DIGITAL SCREENING MAMMOGRAM WITH [...] ultrasound are recommended. Jayleen spears/gi:08/14/2023 11:00:52 Medical Care Evaluation Specialist(s): RT Maribel(Carla)(M), [facility] letter sent: Additional Imaging Needed Mammogram BI-RADS: 0 Incomplete: needs additional imaging evaluation If this report indicates you need additional imaging, and it has NOT yet been performed, please call , to schedule. We sincerely thank you for choosing the [facility] for your breast imaging needs. Multiple national specialty organizations have released breast cancer screening guidelines for women at average risk for developing breast cancer - guidelines that are based on both evidence and opinion, yet differ on when to start and how often to screen for breast cancer. With representation from Breast Imaging, Internal Medicine, Women's Health, Family Medicine, and Medical/Surgical Oncology, the [facility] has carefully reviewed the data and reached [...] their providers when to stop screening mammograms. Data Miner: Gi Transcribe Date/Time: Aug 13 2023 1:56P Dictated by : JAYLEEN CASTELLANOS MD This examination was interpreted and the report reviewed and electronically signed by: JAYLEEN CASTELLANOS MD on Aug 14 2023 11:00AM EST [id number] [facility] MR Cervical spine WO contras ton 07-29-2023 [facility] Absolute lymphocyte countOrd ered By: Law Gold on 05-01-2023 Lymphocytes Auto (Unsp spec) [#/Vol] 1.22 10*3/uL 0.83-4.51 [facility] Activated partial thrombopla stin time (aPTT) in platelet poor plasma by coagulation aOrdered By: Law Gold on 05-01-2023 aPTT Coag (PPP) [Time] 23.0 s 24.1-36.2 [facility] Automated lymphocyte count a s percentage of total leukocytesOrdered By: Law Gold on 05-01-2023 Lymphocytes/100 WBC Auto (Unsp spec) 19.9 % 19-41 [facility] Basophil percentageOrdered B y: Law Gold on 05-01-2023 Basophils/100 WBC (Bld) 0.8 % 0-1 [facility] Chloride [Moles/Vol] 106 mmol/L 98-107 [facility] Eosinophils/100 WBC (Bld) 5.2 % 0-5 [facility] Glucose [Mass/Vol] 87 mg/dL 74-106 [facility] Hemoglobin (Bld) [Mass/Vol] 10.7 g/dL 12.0-15.0 [facility] Monocytes/100 WBC (Bld) 11.6 % 0-10 [facility] Neutrophils (Bld) [#/Vol] 3.8 10*3/uL 2.0-7.7 [facility] Neutrophils/100 WBC (Bld) 62.2 % 47-70 [facility] Potassium [Moles/Vol] 4.4 mmol/L 3.5-5.1 [facility] Sodium [Moles/Vol] 139 mmol/L 136-145 [facility] WBC (Bld) [#/Vol] 6.1 10*3/uL 4.4-11.0 [facility] Determination of erythrocyte mean corpuscular volume (MCV)Ordered By: Law Gold on 05-01-2023 MCV (RBC) [Entitic vol] 90.3 fL 81-99 [facility] Erythrocyte distribution wid th ratioOrdered By: Law Gold on 05-01-2023 Erythrocyte distribution width (RBC) [Ratio] 13.2 % 11.6-14.6 [facility] Erythrocyte distribution wid th standard deviationOrdered By: Law Gold on 05-01-2023 Erythrocyte distribution width (RBC) [Entitic vol] 43.1 fL 35.1-43.9 [facility] Hematocrit Auto (Bld) [Volum e fraction]Ordered By: Law Gold on 05-01-2023 Hematocrit (Bld) [Volume fraction] 34.3 % 37-47 [facility] Immature granulocytes/100 WB C Auto (Bld)Ordered By: Law Gold on 05-01-2023 Immature granulocytes/100 WBC (Bld) 0.300 % 0.0-0.9 [facility] Comment on above: IG% - Immature Granu locytes (promyelocytes, myelocytes and metamyelocytes) > 1% indicates that a LEFT SHIFT is Present. International normalized rat io (INR) calculationOrdered By: Law Gold on 05-01-2023 INR Coag (PPP) [Relative time] 1.3 {INR} [facility] Laboratory - Chemistry and C hemistry - challengeOrdered By: Law Gold on 05-01-2023 CO2 [Moles/Vol] 28.0 mmol/L 21.0-32.0 [facility] Urea nitrogen/Creatinine [Mass ratio] 18.9 mg/mg 10-20 [facility] Laboratory - CoagulationOrde red By: Law Gold on 05-01-2023 PT Coag (PPP) [Time] 16.1 s 11.7-14.9 [facility] Laboratory - Hematology and Cell countsOrdered By: Law Gold on 05-01-2023 MCH (RBC) [Entitic mass] 28.2 pg 27.0-32.0 [facility] MCHC (RBC) [Mass/Vol] 31.2 g/dL 32-36 [facility] Nucleated RBC/100 WBC (Bld) [Ratio] 0 % 0-5 [facility] Platelets (Bld) [#/Vol] 311 10*3/uL 150-450 [facility] No Panel InformationOrdered By: Law Gold on 05-01-2023 Estimated Creatinine Clearance Calc 51.35 ml/min [facility] Estimated GFR (MDRD) Amer 89 mL/min >60 [facility] Comment on above: GFR Calc Estimated GFR (MDRD) Non-Af Amer 74 mL/min >60 [facility] Comment on above: Non- GFR Calc Platelet mean volume [place] (Bld) [Entitic vol]Ordered By: Law Gold on 05-01-2023 Platelet mean volume (Bld) [Entitic vol] 8.4 fL 6.2-12.0 [facility] RBC Auto (Bld) [#/Vol]Ordere d By: Law Gold on 05-01-2023 RBC (Bld) [#/Vol] 3.80 10*6/uL 4.2-5.4 [facility] Serum or plasma calcium taylor urement (mass/volume)Ordered By: Law Gold on 05-01-2023 Calcium [Mass/Vol] 8.9 mg/dL 8.5-10.1 [facility] Serum or plasma creatinine m easurement (mass/volume)Ordered By: Law Gold on 05-01-2023 Creatinine [Mass/Vol] 0.79 mg/dL 0.55-1.02 [facility] Comment on above: The validity of the calculated GFR & GFRAA in patients over 70 years has not been determined. Clinical correlation is essential. Serum or plasma urea nitroge n measurement (mass/volume)Ordered By: Law Gold on 05-01-2023 Urea nitrogen [Mass/Vol] 15 mg/dL 7-18 [facility] Thin prep Papanicolaou smear with manual screeningOrdered By: Law Gold on 05-01-2023 Thin prep Papanicolaou smear with manual screening 5 5-15 [facility] Absolute lymphocyte countOrd ered By: Darline Lundy on 02-06-2023 Lymphocytes Auto (Unsp spec) [#/Vol] 2.15 10*3/uL 0.83-4.51 [facility] Basophil percentageOrdered B y: Darline Lundy on 02-06-2023 Basophils/100 WBC (Bld) 0.4 % 0-1 [facility] Chloride [Moles/Vol] 108 mmol/L 98-107 [facility] Eosinophils/100 WBC (Bld) 2.6 % 0-5 [facility] Glucose [Mass/Vol] 90 mg/dL 74-106 [facility] Neutrophils (Bld) [#/Vol] 3.9 10*3/uL 2.0-7.7 [facility] Neutrophils/100 WBC (Bld) 55.6 % 47-70 [facility] Potassium [Moles/Vol] 4.2 mmol/L 3.5-5.1 [facility] Sodium [Moles/Vol] 140 mmol/L 136-145 [facility] WBC (Bld) [#/Vol] 7.0 10*3/uL 4.4-11.0 [facility] Blood erythrocytes count (nu mber/volume)Ordered By: Darline Lundy on 02-06-2023 RBC (Bld) [#/Vol] 2.47 10*6/uL 4.2-5.4 [facility] Blood hemoglobin measurement (mass/volume)Ordered By: Darline Lundy on 02-06-2023 Hemoglobin (Bld) [Mass/Vol] 7.8 g/dL 12.0-15.0 [facility] Blood lymphocytes/100 leukoc ytesOrdered By: Darline Lundy on 02-06-2023 Lymphocytes/100 WBC (Bld) 30.5 % 19-41 [facility] Blood monocytes/100 leukocyt esOrdered By: Darline Lundy on 02-06-2023 Monocytes/100 WBC (Bld) 10.2 % 0-10 [facility] Blood platelet mean volumeOr dered By: Darline Lundy on 02-06-2023 Platelet mean volume (Bld) [Entitic vol] 8.9 fL 6.2-12.0 [facility] COVID-19 virus antigen assay Ordered By: Darline Lundy on 02-06-2023 SARS-CoV-2 (COVID-19) Ag IA.rapid Ql (Resp) [facility] SARS-CoV-2 (COVID-19) Ag IA.rapid Ql (Resp) [facility] Determination of erythrocyte mean corpuscular volume (MCV)Ordered By: Darline Lundy on 02-06-2023 MCV (RBC) [Entitic vol] 90.7 fL 81-99 [facility] Hematocrit Auto (Bld) [Volum e fraction]Ordered By: Darline Lundy on 02-06-2023 Hematocrit (Bld) [Volume fraction] 22.4 % 37-47 [facility] Laboratory - Chemistry and C hemistry - challengeOrdered By: Darline Lundy on 02-06-2023 CO2 [Moles/Vol] 29.0 mmol/L 21.0-32.0 [facility] Urea nitrogen/Creatinine [Mass ratio] 25.2 mg/mg 10-20 [facility] Laboratory - Hematology and Cell countsOrdered By: Darline Lundy on 02-06-2023 Erythrocyte distribution width (RBC) [Entitic vol] 45.7 fL 35.1-43.9 [facility] Erythrocyte distribution width (RBC) [Ratio] 14.2 % 11.6-14.6 [facility] Immature granulocytes/100 WBC (Bld) 0.700 % 0.0-0.9 [facility] Comment on above: IG% - Immature Granu locytes (promyelocytes, myelocytes and metamyelocytes) > 1% indicates that a LEFT SHIFT is Present. MCH (RBC) [Entitic mass] 28.7 pg 27.0-32.0 [facility] Nucleated RBC/100 WBC (Bld) [Ratio] 0 % 0-5 [facility] MCHC Auto (RBC) [Mass/Vol]Or dered By: Darline Lundy on 02-06-2023 MCHC (RBC) [Mass/Vol] 31.7 g/dL 32-36 [facility] Comment on above: Delta: 33.5 on 02/0540 No Panel InformationOrdered By: Darline Lundy on 02-06-2023 Estimated Creatinine Clearance Calc 34.90 ml/min [facility] Estimated GFR (MDRD) Amer 115 mL/min >60 [facility] Comment on above: GFR Calc Estimated GFR (MDRD) Non-Af Amer 95 mL/min >60 [facility] Comment on above: Non- GFR Calc Platelets bldOrdered By: Maribeth Lundy on 02-06-2023 Platelets (Bld) [#/Vol] 227 10*3/uL 150-450 [facility] Serum or plasma calcium taylor urement (mass/volume)Ordered By: Darline Lundy on 02-06-2023 Calcium [Mass/Vol] 7.9 mg/dL 8.5-10.1 [facility] Serum or plasma creatinine m easurement (mass/volume)Ordered By: Darline Lundy on 02-06-2023 Creatinine [Mass/Vol] 0.64 mg/dL 0.55-1.02 [facility] Comment on above: The validity of the calculated GFR & GFRAA in patients over 70 years has not been determined. Clinical correlation is essential. Serum or plasma urea nitroge n measurement (mass/volume)Ordered By: Darline Lundy on 02-06-2023 Urea nitrogen [Mass/Vol] 16 mg/dL 7-18 [facility] Thin prep Papanicolaou smear with manual screeningOrdered By: Darline Lundy on 02-06-2023 Thin prep Papanicolaou smear with manual screening 3 5-15 [facility] Blood manual differential co mment interpretation (narrative result)Ordered By: Darline Lundy on 02-03-2023 Manual differential comment Enrique (Bld) [Interp] SCANNED [facility] Hypochromatic red blood cell detectionOrdered By: Darline Lundy on 02-03-2023 Hypochromia Ql (Bld) 1+ [facility] Review by pathologistOrdered By: Darline Lundy on 02-03-2023 Pathologist review Enrique (Unsp spec) [Interp] Reviewed [facility] Comment on above: Previous reported re sult: Francine keating Edited by: RGOOD on 02/03/23:1313Severe Normocytic anemia.Clinical correlation necessary.Lucas Smith M.D. 02/03/23 AMENDED REPORT 02/03/23 131 PATH REV previously reported as: Francine keating Basophil percentageOrdered B y: Jasmin Steele on 02-02-2023 Bilirubin [Mass/Vol] 1.10 mg/dL 0.20-1.00 [facility] Comment on above: For patients on eltr ombopag therapy, use of Dimension [place] TBIL is not recommended. Protein [Mass/Vol] 5.6 g/dL 6.4-8.2 [facility] Laboratory - Chemistry and C hemistry - challengeOrdered By: Jasmin Steele on 02-02-2023 ALP [Catalytic activity/Vol] 51 U/L 45-117 [facility] ALT [Catalytic activity/Vol] 7 U/L 13-56 [facility] Globulin (S) [Mass/Vol] 2.8 g/dL 2.2-4.2 [facility] No Panel InformationOrdered By: Davian Grier on 02-02-2023 Vitamin D 25-Hydroxy 34.0 ng/mL [facility] Comment on above: Vitamin D 25(OH) Sta tus Range Deficiency <20 ng/mL (50nmol/L) Insufficiency 20 - 30 ng/mL (50 - 75 nmol/L) Sufficiency 30 - 100 ng/mL (75 - 250 nmol/L) Toxicity >100 ng/mL (>250 nmol/L) Serum or plasma albumin taylor urement (mass/volume)Ordered By: Jasmin Steele on 02-02-2023 Albumin [Mass/Vol] 2.8 g/dL 3.2-5.0 [facility] Serum or plasma albumin/glob ulin mass ratioOrdered By: Jasmin Steele on 02-02-2023 Albumin/Globulin [Mass ratio] 1.0 {ratio} 0.9-2.4 [facility] Thin prep Papanicolaou smear with manual screeningOrdered By: Jasmin Ivette on 02-02-2023 Thin prep Papanicolaou smear with manual screening 16 U/L 15-37 [facility] Absolute lymphocyte countOrd ered By: Niko Lorenz on 02-01-2023 Lymphocytes Auto (Unsp spec) [#/Vol] 1.35 10*3/uL 0.83-4.51 [facility] Basophil percentageOrdered B y: Niko Lorenz on 02-01-2023 Basophils/100 WBC (Bld) 1.0 % 0-1 [facility] Chloride [Moles/Vol] 107 mmol/L 98-107 [facility] Eosinophils/100 WBC (Bld) 1.7 % 0-5 [facility] Glucose [Mass/Vol] 98 mg/dL 74-106 [facility] Neutrophils (Bld) [#/Vol] 2.9 10*3/uL 2.0-7.7 [facility] Neutrophils/100 WBC (Bld) 60.2 % 47-70 [facility] Potassium [Moles/Vol] 4.2 mmol/L 3.5-5.1 [facility] Sodium [Moles/Vol] 141 mmol/L 136-145 [facility] WBC (Bld) [#/Vol] 4.8 10*3/uL 4.4-11.0 [facility] Blood erythrocytes count (nu mber/volume)Ordered By: Niko Lorenz on 02-01-2023 RBC (Bld) [#/Vol] 3.93 10*6/uL 4.2-5.4 [facility] Blood hemoglobin measurement (mass/volume)Ordered By: Niko Lorenz on 02-01-2023 Hemoglobin (Bld) [Mass/Vol] 10.8 g/dL 12.0-15.0 [facility] Blood lymphocytes/100 leukoc ytesOrdered By: Niko Lorenz on 02-01-2023 Lymphocytes/100 WBC (Bld) 28.0 % 19-41 [facility] Blood monocytes/100 leukocyt esOrdered By: Niko Lorenz on 02-01-2023 Monocytes/100 WBC (Bld) 8.9 % 0-10 [facility] Blood platelet mean volumeOr dered By: Niko Lorenz on 02-01-2023 Platelet mean volume (Bld) [Entitic vol] 8.7 fL 6.2-12.0 [facility] Determination of erythrocyte mean corpuscular volume (MCV)Ordered By: Niko Lorenz on 02-01-2023 MCV (RBC) [Entitic vol] 89.6 fL 81-99 [facility] Glucose Glucometer (BldC) [M ass/Vol]Ordered By: Darline Lundy on 02-01-2023 Glucose [Mass/Vol] 99 mg/dL 74-106 [facility] Comment on above: MANAGEMENT OF PATIEN T CARE PER NURSING PROTOCOL Hematocrit Auto (Bld) [Volum e fraction]Ordered By: Niko Lorenz on 02-01-2023 Hematocrit (Bld) [Volume fraction] 35.2 % 37-47 [facility] INR in Blood by Coagulation assayOrdered By: Niko Lorenz on 02-01-2023 INR Coag (Bld) [Relative time] 1.2 {INR} [facility] Laboratory - Chemistry and C hemistry - challengeOrdered By: Niko Lorenz on 02-01-2023 CO2 [Moles/Vol] 30.0 mmol/L 21.0-32.0 [facility] Urea nitrogen/Creatinine [Mass ratio] 18.8 mg/mg 10-20 [facility] Laboratory - Chemistry and C hemistry - challengeOrdered By: Jasmin Steele on 02-01-2023 Natriuretic peptide B (Bld) [Mass/Vol] 145.2 pg/mL 0-100 [facility] Laboratory - CoagulationOrde red By: Niko Lorenz on 02-01-2023 PT Coag (PPP) [Time] 14.8 s 11.7-14.9 [facility] Laboratory - Hematology and Cell countsOrdered By: Niko Lorenz on 02-01-2023 Erythrocyte distribution width (RBC) [Entitic vol] 41.8 fL 35.1-43.9 [facility] Erythrocyte distribution width (RBC) [Ratio] 12.6 % 11.6-14.6 [facility] Immature granulocytes/100 WBC (Bld) 0.200 % 0.0-0.9 [facility] Comment on above: IG% - Immature Granu locytes (promyelocytes, myelocytes and metamyelocytes) > 1% indicates that a LEFT SHIFT is Present. MCH (RBC) [Entitic mass] 27.5 pg 27.0-32.0 [facility] Nucleated RBC/100 WBC (Bld) [Ratio] 0 % 0-5 [facility] MCHC Auto (RBC) [Mass/Vol]Or dered By: Niko Lorenz on 02-01-2023 MCHC (RBC) [Mass/Vol] 30.7 g/dL 32-36 [facility] No Panel InformationOrdered By: Niko Lorenz on 02-01-2023 Estimated Creatinine Clearance Calc 41.05 ml/min [facility] Estimated GFR (MDRD) Amer 83 mL/min >60 [facility] Comment on above: GFR Calc Estimated GFR (MDRD) Non-Af Amer 68 mL/min >60 [facility] Comment on above: Non- GFR Calc Platelets bldOrdered By: Alina Lorenz on 02-01-2023 Platelets (Bld) [#/Vol] 255 10*3/uL 150-450 [facility] Serum or plasma calcium taylor urement (mass/volume)Ordered By: Niko Lorenz on 02-01-2023 Calcium [Mass/Vol] 8.6 mg/dL 8.5-10.1 [facility] Serum or plasma creatinine m easurement (mass/volume)Ordered By: Niko Lorenz on 02-01-2023 Creatinine [Mass/Vol] 0.85 mg/dL 0.55-1.02 [facility] Comment on above: The validity of the calculated GFR & GFRAA in patients over 70 years has not been determined. Clinical correlation is essential. Serum or plasma urea nitroge n measurement (mass/volume)Ordered By: Niko Lorenz on 02-01-2023 Urea nitrogen [Mass/Vol] 16 mg/dL 7-18 [facility] Thin prep Papanicolaou smear with manual screeningOrdered By: Niko Lorenz on 02-01-2023 Thin prep Papanicolaou smear with manual screening 4 5-15 [facility] Basophil percentageOrdered B y: Danielle Saulo on 01-05-2023 Chloride [Moles/Vol] 107 mmol/L 98-107 [facility] Glucose [Mass/Vol] 95 mg/dL 74-106 [facility] Potassium [Moles/Vol] 4.3 mmol/L 3.5-5.1 [facility] Sodium [Moles/Vol] 139 mmol/L 136-145 [facility] Laboratory - Chemistry and C hemistry - challengeOrdered By: Danielle Vernon on 01-05-2023 CO2 [Moles/Vol] 28.0 mmol/L 21.0-32.0 [facility] Urea nitrogen/Creatinine [Mass ratio] 17.8 mg/mg 10-20 [facility] No Panel InformationOrdered By: Danielle Vernon on 01-05-2023 Estimated GFR (MDRD) Amer 68 mL/min >60 [facility] Comment on above: GFR Calc Estimated GFR (MDRD) Non-Af Amer 56 mL/min >60 [facility] Comment on above: Non- GFR Calc Serum or plasma calcium taylor urement (mass/volume)Ordered By: Danielle Vernon on 01-05-2023 Calcium [Mass/Vol] 8.8 mg/dL 8.5-10.1 [facility] Serum or plasma creatinine m easurement (mass/volume)Ordered By: Danielle Vernon on 01-05-2023 Creatinine [Mass/Vol] 1.01 mg/dL 0.55-1.02 [facility] Comment on above: The validity of the calculated GFR & GFRAA in patients over 70 years has not been determined. Clinical correlation is essential. Serum or plasma urea nitroge n measurement (mass/volume)Ordered By: Danielle Vernon on 01-05-2023 Urea nitrogen [Mass/Vol] 18 mg/dL 7-18 [facility] Thin prep Papanicolaou smear with manual screeningOrdered By: Danielle Vernon on 01-05-2023 Thin prep Papanicolaou smear with manual screening 4 5-15 [facility] Absolute lymphocyte counton 2022 Lymphocytes Auto (Unsp spec) [#/Vol] 1.71 10*3/uL 0.83-4.51 [facility] Work Phone: Basophil percentageon 2021 Basophils/100 WBC (Bld) 0.8 % 0-1 [facility] Work Phone: Bilirubin [Mass/Vol] 0.60 mg/dL 0.20-1.00 [facility] Work Phone: Comment on above: For patients on eltr ombopag therapy, use of Dimension [place] TBIL is not recommended. Chloride [Moles/Vol] 106 mmol/L 98-107 [facility] Work Phone: Cholesterol [Mass/Vol] 171 mg/dL <200 [facility] Work Phone: Comment on above: <200 mg/dL Desirable 200-240 mg/dL Borderline >240 mg/dL High Risk Eosinophils/100 WBC (Bld) 1.8 % 0-5 [facility] Work Phone: Glucose [Mass/Vol] 93 mg/dL 74-106 [facility] Work Phone: Neutrophils (Bld) [#/Vol] 2.5 10*3/uL 2.0-7.7 [facility] Work Phone: Neutrophils/100 WBC (Bld) 51.0 % 47-70 [facility] Work Phone: Potassium [Moles/Vol] 4.6 mmol/L 3.5-5.1 [facility] Work Phone: Protein [Mass/Vol] 7.3 g/dL 6.4-8.2 [facility] Work Phone: Sodium [Moles/Vol] 139 mmol/L 136-145 [facility] Work Phone: Triglyceride [Mass/Vol] 76 mg/dL <199 [facility] Work Phone: Comment on above: The drugs N-Acetylcy steine and Metamizole may falsely depress this assay.Serum Triglycerides Reference Interval Normal <150 mg/dL Borderline high 150 - 199 mg/dL High 200 - 499 mg/dL Very High > or = 500 mg/dL WBC (Bld) [#/Vol] 5.0 10*3/uL 4.4-11.0 [facility] Work Phone: Blood erythrocytes count (nu mber/volume)on 2022 RBC (Bld) [#/Vol] 4.37 10*6/uL 4.2-5.4 [facility]: Blood hemoglobin measurement (mass/volume)on 2022 Hemoglobin (Bld) [Mass/Vol] 11.9 g/dL 12.0-15.0 [facility] Work Phone: Blood lymphocytes/100 leukoc yteson 2022 Lymphocytes/100 WBC (Bld) 34.5 % 19-41 [facility] Work Phone: [phone] Blood monocytes/100 leukocyt eson 2022 Monocytes/100 WBC (Bld) 11.7 % 0-10 [facility] Work Phone: Blood platelet mean volumeon 2022 Platelet mean volume (Bld) [Entitic vol] 9.1 fL 6.2-12.0 [facility] Work Phone: Determination of erythrocyte mean corpuscular volume (MCV)on 2022 MCV (RBC) [Entitic vol] 88.3 fL 81-99 [facility] Work Phone: [phone] Hematocrit Auto (Bld) [Volum e fraction]on 2022 Hematocrit (Bld) [Volume fraction] 38.6 % 37-47 [facility] Work Phone: Laboratory - Chemistry and C hemistry - challengeon 2022 ALP [Catalytic activity/Vol] 71 U/L 45-117 [facility] Work Phone: ALT [Catalytic activity/Vol] 16 U/L 13-56 [facility] Work Phone: [phone] CO2 [Moles/Vol] 28.0 mmol/L 21.0-32.0 [facility] Work Phone: Globulin (S) [Mass/Vol] 3.6 g/dL 2.2-4.2 [facility] Work Phone: Urea nitrogen/Creatinine [Mass ratio] 22.8 mg/mg 10-20 [facility] Work Phone: Bilirubin Ql (U) Small (1+) [facility] Work Phone: [phone] Glucose Ql (U) Negative [facility] Work Phone: [phone] Ketones Ql (U) Small (15+) [facility] Work Phone: [phone] pH (U) 6.5 [pH] [facility] Work Phone: [phone] Specific gravity (U) [Rel density] 1.025 [facility] Work Phone: [phone] Urobilinogen (U) [Mass/Vol] 1 mg/dL [facility] Work Phone: [phone] Laboratory - Hematology and Cell countson 2022 Erythrocyte distribution width (RBC) [Entitic vol] 41.6 fL 35.1-43.9 [facility] Work Phone: Erythrocyte distribution width (RBC) [Ratio] 12.7 % 11.6-14.6 [facility] Work Phone: Immature granulocytes/100 WBC (Bld) 0.200 % 0.0-0.9 [facility] Work Phone: Comment on above: IG% - Immature Granu locytes (promyelocytes, myelocytes and metamyelocytes) > 1% indicates that a LEFT SHIFT is Present. MCH (RBC) [Entitic mass] 27.2 pg 27.0-32.0 [facility] Work Phone: Nucleated RBC/100 WBC (Bld) [Ratio] 0 % 0-5 [facility] Work Phone: Hemoglobin Ql (U) Negative [facility] Work Phone: Laboratory - Specimen inform ationon 2022 Clarity (U) Clear [facility] Work Phone: Color (U) STRAW [facility] Work Phone: Laboratory - Urinalysison Nitrite Ql (U) Negative [facility] Work Phone: Protein Ql (U) Trace [facility] Work Phone: [phone] MCHC Auto (RBC) [Mass/Vol]on 2022 MCHC (RBC) [Mass/Vol] 30.8 g/dL 32-36 [facility] Work Phone: No Panel Informationon 03-26 Estimated GFR (MDRD) Amer 68 mL/min >60 [facility] Work Phone: Comment on above: GFR Calc Estimated GFR (MDRD) Non-Af Amer 56 mL/min >60 [facility] Work Phone: Comment on above: Non- GFR Calc Thyroid Stimulating Hormone (TSH) 2.51 uIU/mL 0.358-3.74 [facility] Work Phone: Urine Leukocytes Negatve [facility] Work Phone: Urine Non-Hemolyzed Blood [facility] Work Phone: Platelets bldon 2022 Platelets (Bld) [#/Vol] 311 10*3/uL 150-450 [facility] Work Phone: Serum or plasma albumin taylor urement (mass/volume)on 2022 Albumin [Mass/Vol] 3.7 g/dL 3.2-5.0 [facility] Work Phone: [phone] Serum or plasma albumin/glob ulin mass ratioon 2022 Albumin/Globulin [Mass ratio] 1.0 {ratio} 0.9-2.4 [facility] Work Phone: Serum or plasma calcium taylor urement (mass/volume)on 2022 Calcium [Mass/Vol] 9.0 mg/dL 8.5-10.1 [facility] Work Phone: Serum or plasma cholesterol in HDL measurement (mass/volume)on 2022 Cholesterol in HDL [Mass/Vol] 100 mg/dL >40 [facility] Work Phone: Comment on above: The drugs N-Acetylcy steine and Metamizole may falsely depress this assay. Reference Range HDL <40 mg/dL Low HDL Cholesterol HDL >or= 60 mg/dL High HDL Cholesterol Serum or plasma cholesterol in VLDL measurement (mass/volume)on 2022 Cholesterol in VLDL [Mass/Vol] 15 mg/dL 5-40 [facility] Work Phone: Serum or plasma creatinine m easurement (mass/volume)on 2022 Creatinine [Mass/Vol] 1.01 mg/dL 0.55-1.02 [facility] Work Phone: Comment on above: The validity of the calculated GFR & GFRAA in patients over 70 years has not been determined. Clinical correlation is essential. Serum or plasma low density lipoprotein (LDL) cholesterol measurement (mass/volume)on 2022 Cholesterol in LDL [Mass/Vol] 56 mg/dL 0-130 [facility] Work Phone: Serum or plasma urea nitroge n measurement (mass/volume)on 2022 Urea nitrogen [Mass/Vol] 23 mg/dL 7-18 [facility] Work Phone: Serum or plasma uric acid me asurement (mass/volume)on 2022 Urate [Mass/Vol] 3.8 mg/dL 2.6-6.0 [facility] Work Phone: Comment on above: The drugs N-Acetylcy steine and Metamizole may falsely depress this assay. Thin prep Papanicolaou smear with manual screeningon 2022 Thin prep Papanicolaou smear with manual screening 27 U/L 15-37 [facility] Work Phone: Thin prep Papanicolaou smear with manual screening 5 5-15 [facility] Work Phone: [phone] Vital Signs Date Time Vital Sign Value Performing Clinician Faci lity 01-25-2025 10:36-0400 Body temperature 98.4 [degF] [facility] 01-25-2025 10:36-0400 Diastolic blood pressure 52 mm[Hg] [facility] 01-25-2025 10:36-0400 Heart rate 83 /min [facility] 01-25-2025 10:36-0400 Respiratory rate 16 /min [facility] 01-25-2025 10:36-0400 SaO2% (BldA) [Mass fraction] 98 % [facility] 01-25-2025 10:36-0400 Systolic blood pressure 113 mm[Hg] [facility] 01-25-2025 06:00-0400 Body mass index (BMI) [Ratio] 30.7 kg/m2 [facility] 01-25-2025 06:00-0400 Body weight 75.7 kg [facility] 01-22-2025 08:05-0400 Inhaled oxygen flow rate 2 L/min [facility] 01-20-2025 11:58-0400 Body height 157 cm [facility] 12-28-2024 13:11-0400 Body height 157.48 cm [facility] 12-28-2024 13:11-0400 Body mass index (BMI) [Ratio] 29.4 kg/m2 [facility] 12-28-2024 13:11-0400 Body weight 73.02 kg [facility] 12-28-2024 13:11-0400 Diastolic blood pressure 60 mm[Hg] [facility] 12-28-2024 13:11-0400 Heart rate 83 /min Tressa Bobby [facility] 12-28-2024 13:11-0400 Systolic blood pressure 115 mm[Hg] Tressa Rosales [facility] 09-27-2024 08:22-0400 Body height 157.48 cm Didi Tai [employer] Work Phone: [facility] 09-27-2024 08:22-0400 Body mass index (BMI) [Ratio] 29.4 kg/m2 Didi Lujan [employer] Work Phone: [facility] 09-27-2024 08:22-0400 Body weight 73.02 kg Didi Lujan [employer] Work Phone: [facility] 09-27-2024 08:22-0400 Diastolic blood pressure 72 mm[Hg] Didi Lujan [employer] Work Phone: [facility] 09-27-2024 08:22-0400 Heart rate 72 /min Didi Lujan [employer] Work Phone: [facility] 09-27-2024 08:22-0400 Respiratory rate 16 /min Didi Lujan [employer] Work Phone: [facility] 09-27-2024 08:22-0400 Systolic blood pressure 125 mm[Hg] Didi Lujan [employer] Work Phone: [facility] 07-29-2024 14:17-0400 Diastolic blood pressure 65 mm[Hg] Armen Madison MD Work Phone: [facility] 07-29-2024 14:17-0400 Heart rate 68 /min Armen Madison MD Work Phone: [facility] 07-29-2024 14:17-0400 Systolic blood pressure 110 mm[Hg] Armen Madison MD Work Phone: [facility] 06-28-2024 07:42-0400 Body height 157.5 cm Em Sheldon Work Phone: [facility] 06-28-2024 07:42-0400 Body mass index (BMI) [Ratio] 28.42 kg/m2 Em Flynn APRN.BIOLOGY LECTURER Work Phone: [facility] 06-28-2024 07:42-0400 Body weight 70.49 kg Em Flynn APRN.CN P Work Phone: [facility] Comment on above: Per pt. Did not get weighed today 06-28-2024 07:42-0400 Diastolic blood pressure 74 mm[Hg] Em Flynn APRN.BIOLOGY LECTURER Work Phone: [facility] 06-28-2024 07:42-0400 Heart rate 76 /min Em Flynn APRN.CN P Work Phone: [facility] 06-28-2024 07:42-0400 SaO2% (BldA) [Mass fraction] 99 % Em Flynn APRN.BIOLOGY LECTURER Work Phone: [facility] 06-28-2024 07:42-0400 Systolic blood pressure 112 mm[Hg] Em Flynn APRN.BIOLOGY LECTURER Work Phone: [facility] 03-16-2024 08:37-0500 Body height 157.48 cm Alexandra Arreguin [employer] Work Phone: [facility] 03-16-2024 08:37-0500 Body mass index (BMI) [Ratio] 28.7 kg/m2 Alexandra Arreguin [employer] Work Phone: [facility] 03-16-2024 08:37-0500 Body weight 71.21 kg Alexandra Arreguin [employer] Work Phone: [facility] 03-16-2024 08:37-0500 Diastolic blood pressure 62 mm[Hg] Alexandra Arreguin [employer] Work Phone: [facility] 03-16-2024 08:37-0500 Heart rate 59 /min Alexandra Arreguin [employer] Work Phone: [facility] 03-16-2024 08:37-0500 Respiratory rate 18 /min Alexandra Rodríguez [employer] Work Phone: [facility] 03-16-2024 08:37-0500 Systolic blood pressure 97 mm[Hg] Alexandrajenny MccollumArreguin [employer] Work Phone: [facility] 12-31-2023 09:11-0400 Body height 157.5 cm Em Flynn APRN.CN P Work Phone: [facility] 12-31-2023 09:11-0400 SaO2% (BldA) [Mass fraction] 99 % Em Flynn APRN.BIOLOGY LECTURER Work Phone: [facility] 09-29-2023 08:59-0400 Body height 157.5 cm Em Flynn APRN.CN P Work Phone: [facility] 09-29-2023 08:59-0400 Body mass index (BMI) [Ratio] 29.81 kg/m2 Em Flynn APRN.BIOLOGY LECTURER Work Phone: [facility] 09-29-2023 08:59-0400 Body weight 73.94 kg Em Flynn APRN.CN P Work Phone: [facility] Comment on above: Per pt. Did not get weighed 09-29-2023 08:59-0400 Diastolic blood pressure 69 mm[Hg] Em Flynn APRN.BIOLOGY LECTURER Work Phone: [facility] 09-29-2023 08:59-0400 Heart rate 58 /min Em Flynn APRN.CN P Work Phone: [facility] 09-29-2023 08:59-0400 SaO2% (BldA) [Mass fraction] 98 % Em Flynn APRN.BIOLOGY LECTURER Work Phone: [facility] 09-29-2023 08:59-0400 Systolic blood pressure 106 mm[Hg] Em Flynn APRN.BIOLOGY LECTURER Work Phone: [facility] 08-27-2023 13:39-0400 Body height 157.5 cm Stephan Sheehan PA-C Work Phone: [facility] 08-27-2023 13:39-0400 Body mass index (BMI) [Ratio] 30.12 kg/m2 Stephan Sheehan PA-C Work Phone: [facility] 08-27-2023 13:39-0400 Body weight 74.7 kg Stephan Sheehan PA-C Work Phone: [facility] 08-27-2023 13:39-0400 Diastolic blood pressure 57 mm[Hg] Stephan Sheehan PA-C Work Phone: [facility] 08-27-2023 13:39-0400 Heart rate 60 /min Stephan Sheehan PA-C Work Phone: [facility] 08-27-2023 13:39-0400 Respiratory rate 18 /min Stephan Sheehan PA-C Work Phone: [facility] 08-27-2023 13:39-0400 SaO2% (BldA) [Mass fraction] 100 % Stephan Sheehan PA-C Work Phone: [facility] 08-27-2023 13:39-0400 Systolic blood pressure 130 mm[Hg] Stephan Sheehan PA-C Work Phone: [facility] 07-06-2023 08:13-0400 Body weight 73.94 kg Em Flynn APRN.CN P Work Phone: [facility] 07-06-2023 08:13-0400 Diastolic blood pressure 82 mm[Hg] Em Flynn APRN.BIOLOGY LECTURER Work Phone: [facility] 07-06-2023 08:13-0400 Heart rate 72 /min Em Flynn APRN.CN P Work Phone: [facility] 07-06-2023 08:13-0400 SaO2% (BldA) [Mass fraction] 99 % Em Flynn APRN.BIOLOGY LECTURER Work Phone: [facility] 07-06-2023 08:13-0400 Systolic blood pressure 128 mm[Hg] Em Flynn APRN.BIOLOGY LECTURER Work Phone: [facility] 05-01-2023 18:05-0500 Diastolic blood pressure 69 mm[Hg] [employer] Alexandra Arreguin BE[employer] Work Phone: [facility] 05-01-2023 18:05-0500 Heart rate 67 /min [employer] Alexandra Arreguin [employer] Work Phone: [facility] 05-01-2023 18:05-0500 Respiratory rate 16 /min [employer] Alexandra Arreguin [employer] Work Phone: [facility] 05-01-2023 18:05-0500 SaO2% (BldA) [Mass fraction] 98 % [employer] Alexandra Arreguin [employer] Work Phone: [facility] 05-01-2023 18:05-0500 Systolic blood pressure 120 mm[Hg] [employer] Alexandra Arreguin [employer] Work Phone: [facility] 05-01-2023 13:26-0500 Body height 157.48 cm [employer] Alexandra Arreguin [employer] Work Phone: [facility] 05-01-2023 13:26-0500 Body mass index (BMI) [Ratio] 30.2 kg/m2 [employer] Alexandra Arreguin [employer] Work Phone: [facility] 05-01-2023 13:26-0500 Body temperature 98.4 [degF] [employer] Alexandra Arreguin [employer] Work Phone: [facility] 05-01-2023 13:26-0500 Body weight 74.84 kg [employer] Alexandra Arreguin [employer] Work Phone: [facility] 02-06-2023 13:59-0400 Body temperature 98.6 [degF] [employer] Alexandra Arreguin BE[employer] Work Phone: [facility] 02-06-2023 13:59-0400 Diastolic blood pressure 52 mm[Hg] [employer] Alexandra Arreguin [employer]ATER [employer] Work Phone: [facility] 02-06-2023 13:59-0400 Heart rate 73 /min [employer] Alexandra Arreguin [employer] Work Phone: [facility] 02-06-2023 13:59-0400 Respiratory rate 16 /min [employer] Alexandra Arreguin [employer] Work Phone: [phone] [address] 02-06-2023 13:59-0400 SaO2% (BldA) [Mass fraction] 100 % [employer] Alexandra Arreguin [employer] Work Phone: [phone] [place] [address] 02-06-2023 13:59-0400 Systolic blood pressure 92 mm[Hg] [employer] Alexandra Arreguin [employer] Work Phone: [phone] [place] [address] 02-06-2023 05:46-0400 Body mass index (BMI) [Ratio] 31.1 kg/m2 [employer] Alexandra Arreguin [employer] Work Phone: [phone] [place] [address] 02-06-2023 05:46-0400 Body weight 76.6 kg [employer] Alexandra Arreguin [employer] Work Phone: [phone] [place] [address] 02-02-2023 11:48-0400 Body height 157.48 cm [employer] Alexandra Arreguin [employer] Work Phone: [phone] [address] 02-01-2023 13:44-0400 Body height 157.48 cm [employer] Alexandra Arreguin BEATER HEAD Work Phone: [phone] [place] [address] 02-01-2023 13:44-0400 Body mass index (BMI) [Ratio] 31.1 kg/m2 BEATER HEAD-C Alexandra Arreguin BEATER HEAD Work Phone: [phone] [place] [address] 02-01-2023 13:44-0400 Body temperature 98.4 [degF] BEATER HEAD-C Alexandra Arreguin BEATER HEAD Work Phone: [facility] 02-01-2023 13:44-0400 Body weight 77.1 kg BEATER HEAD-C Alexandra Arreguin BEATER HEAD Work Phone: [phone] [place] [address] 02-01-2023 13:44-0400 Diastolic blood pressure 79 mm[Hg] BEATER HEAD-C Alexandra Arreguin BEATER HEAD Work Phone: [facility] 02-01-2023 13:44-0400 Heart rate 77 /min BEATER HEAD-C Alexandra Arreguin BEATER HEAD Work Phone: [facility] 02-01-2023 13:44-0400 Respiratory rate 20 /min BEATER HEAD-C Alexandra Arreguin BEATER HEAD Work Phone: [facility] 02-01-2023 13:44-0400 SaO2% (BldA) [Mass fraction] 99 % BEATER HEAD-C Alexandra Arreguin BEATER HEAD Work Phone: [facility] 02-01-2023 13:44-0400 Systolic blood pressure 165 mm[Hg] BEATER HEAD-C Alexandra Arreguin BEATER HEAD Work Phone: [facility] 01-20-2023 14:48-0400 Body height 157.5 cm Em Flynn APRN.CN P Work Phone: [facility] 01-20-2023 14:48-0400 Body weight 70.76 kg Em Flynn APRN.CN P Work Phone: [facility] 01-20-2023 14:48-0400 SaO2% (BldA) [Mass fraction] 100 % Em Flynn APRN.BIOLOGY LECTURER Work Phone: [facility] 12-29-2022 13:39-0400 Body mass index (BMI) [Ratio] 28 kg/m2 BEATER HEAD-C Alexandra Arreguin BEATER HEAD Work Phone: [facility] 12-29-2022 13:39-0400 Body weight 69.39 kg BEATER HEAD-C Alexandra Arreguin BEATER HEAD Work Phone: [facility] 12-29-2022 13:39-0400 Diastolic blood pressure 78 mm[Hg] BEATER HEAD-C Alexandra Arreguin BEATER HEAD Work Phone: [facility] 12-29-2022 13:39-0400 Heart rate 60 /min BEATER HEAD-C Alexandra Arreguin BEATER HEAD Work Phone: [facility] 12-29-2022 13:39-0400 Respiratory rate 16 /min BEATER HEAD-C Alexandra Arreguin BEATER HEAD Work Phone: [facility] 12-29-2022 13:39-0400 Systolic blood pressure 152 mm[Hg] BEATER HEAD-C Alexandra Arreguin BEATER HEAD Work Phone: [facility] 10-09-2022 12:48-0400 Body height 157.5 cm Linden Flynn MD Work Phone: [facility] 10-09-2022 12:48-0400 Body weight 68.63 kg Linden Flynn MD Work Phone: [facility] 10-09-2022 12:48-0400 SaO2% (BldA) [Mass fraction] 99 % Linden Flynn MD Work Phone: [facility] 2022 14:59-0500 Body height 157.48 cm [facility] Work Phone: 2022 14:59-0500 Body mass index (BMI) [Ratio] 25.2 kg/m2 [facility] Work Phone: 2022 14:59-0500 Body temperature 97.7 [degF] [facility] Work Phone: 2022 14:59-0500 Body weight 62.59 kg [facility] Work Phone: 2022 14:59-0500 Diastolic blood pressure 70 mm[Hg] [facility] Work Phone: 2022 14:59-0500 Heart rate 138 /min [facility] Work Phone: 2022 14:59-0500 Respiratory rate 18 /min [facility] Work Phone: 2022 14:59-0500 SaO2% (BldA) [Mass fraction] 100 % [facility] Work Phone: 2022 14:59-0500 Systolic blood pressure 130 mm[Hg] [facility] Work Phone: 02-24-2022 16:15-0500 Body mass index (BMI) [Ratio] 25.6 kg/m2 [facility] Work Phone: 02-24-2022 16:15-0500 Body temperature 97.5 [degF] [facility] Work Phone: 02-24-2022 16:15-0500 Body weight 63.5 kg [facility] Work Phone: 02-24-2022 16:15-0500 Diastolic blood pressure 60 mm[Hg] [facility] Work Phone: 02-24-2022 16:15-0500 Heart rate 85 /min [facility] Work Phone: 02-24-2022 16:15-0500 Respiratory rate 18 /min [facility] Work Phone: 02-24-2022 16:15-0500 SaO2% (BldA) [Mass fraction] 100 % [facility] Work Phone: 02-24-2022 16:15-0500 Systolic blood pressure 122 mm[Hg] [facility] Work Phone: Encounters Encounter Date Encounter Type Care Provider Facility Start: 02-15-2025 End: 02-15-[facility] Start: 01-25-2025 Non-patient / Non-visit Dr. Estella Kelly MD -[facility] Work Phone: Start: 01-24-2025 Non-patient / Non-visit Dr. Estella Kelly MD -[facility] Work Phone: Start: 01-23-2025 Non-patient / Non-visit Dr. Estella Kelly MD -[facility] Work Phone: Start: 01-22-2025 Non-patient / Non-visit Dr. Estella Kelly MD -[facility] Work Phone: Start: 01-21-2025 Non-patient / Non-visit Dr. Estella Kelly MD -[facility] Work Phone: Start: 01-20-2025 Non-patient / Non-visit Dr. Danielle anderson MD -[facility] Work Phone: Start: 01-20-2025 Non-patient / Non-visit Dr. Zeus Martel DO -[facility] Work Phone: Start: 01-20-2025 ambulatory Davian Kelly Fac ility:[facility] Start: 01-20-2025 End: 01-25-2025 Evaluation and management of inpatient Dr. Davian Kelly MD -[facility] Work Phone: Start: 01-19-2025 End: 01-20-2025 Emergency department patient visit ALEXANDRA ARREGUIN Facility:[facility] Start: 12-28-2024 End: 12-28-[address] Alexandria Dejesus MD -[facility] Work Phone: Start: 12-28-2024 End: 12-28-2024 ambulatory Tressa HALL -[facility] Start: 11-07-2024 ambulatory Danielle Vernon Facility:[facility] Start: 11-07-2024 Non-patient / Non-visit Dr. Danielle anderson MD -[facility] Start: 11-03-2024 ambulatory Danielle Vernon Facility:[facility] Start: 11-03-2024 Non-patient / Non-visit Dr. Danielle anderson MD -[facility] Start: 11-03-2024 End: 11-03-2024 ambulatory Tressa HALL -[facility] Start: 11-03-2024 End: 11-03-[address] Danielle Vernon MD -[facility] Work Phone: Start: 11-03-2024 End: 11-03-2024 ambulatory Danielle Vernon Facility:[facility] Start: 09-27-2024 End: 09-27-[address] Danielle Vernon MD -[facility] Work Phone: Start: 09-27-2024 End: 09-27-2024 ambulatory Didi Lujan NP-C Work Phone: [facility] Work Phone: Start: 07-29-2024 End: 07-29-2024 ambulatory ALEXANDRA Anay ARREGUIN Facility:[facility] Start: 07-29-2024 End: 07-29-2024 Office outpatient new 30 minutes Armen Madison MD Work Phone: [facility] Comment on above: Numbness and tinglin g of both feet Start: 07-29-2024 End: 07-29-2024 ambulatory ALEXANDRA Anay ARREGUIN Facility:[facility] Start: 06-28-2024 End: 06-28-2024 ambulatory ALEXANDRA Anay ARREGUIN Facility:[facility] Start: 06-28-2024 End: 06-28-2024 Patient encounter procedure Em Flynn APRN.CNP Work Phone: Neurology Comment on above: Dysphagia, unspecifi ed type (Primary Dx); 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 Danielle Vernon MD -[facility] Work Phone: Start: 03-16-2024 End: 03-16-2024 ambulatory Danielle Vernon Facility:[facility] Start: 12-31-2023 End: 12-31-2023 Patient encounter procedure Em Flynn APRN.BIOLOGY LECTURER Work Phone: Neurology Comment on above: Dysphagia, unspecifi ed type (Primary Dx); Parkinson's disease without dyskinesia or fluctuating manifestations (HCC); Orthostatic hypotension Start: 11-20-2023 Documentation procedure Mammog dae Coordinator [facility] Department Start: 11-20-2023 Letter encounter Mammography Coordinator [facility] Department Start: 11-20-2023 End: 11-20-2023 Subsequent hospital visit by physician Screening Ultrasound Main Work Phone: Mammography Start: 10-21-2023 Telephone encounter Stephan juan PA-C Work Phone: [facility] Comment on above: Optometric Aide - O ther Start: 10-16-2023 Telephone encounter Yury Jasso MD Work Phone: Orthopaedics Comment on above: Patient Update; Radha ent Question; Orders Start: 10-02-2023 End: 10-02-2023 Patient encounter procedure Yury Jasso MD Work Phone: Orthopedics Comment on above: Acute pain of left s moisesulder Start: 09-29-2023 End: 09-29-2023 Patient encounter procedure Em Flynn APRN.BIOLOGY LECTURER Work Phone: Neurology Comment on above: Parkinson's disease without dyskinesia or fluctuating manifestations (HCC) (Primary Dx); Orthostatic hypotension; Hallucinations; Dysphagia, unspecified type Start: 09-29-2023 ambulatory UNKNOWN PROVIDER Facili ty:[facility] Start: 09-29-2023 End: 09-29-2023 Subsequent hospital visit by physician [facility] Work Phone: Radiology Comment on above: Chronic left shoulde r pain [M25.512, G89.29] Start: 09-23-2023 ambulatory DIDI LUJAN Facilit y:[facility] Start: 09-23-2023 End: 09-23-2023 Subsequent hospital visit by physician Screen/Diagnostic Mammo [facility] Work Phone: Mammography Comment on above: Inconclusive mammogr am [R92.2] Start: 09-14-2023 Orders Only Yury Jasso MD Work Phone: Orthopedics Comment on above: Chronic left shoulde r pain (Primary Dx) Start: 09-02-2023 Telephone encounter Stephan juan PA-C Work Phone: [facility] Start: 08-27-2023 End: 08-27-2023 Patient encounter procedure Stephan Sheehan PA-C Work Phone: [facility] Comment on above: Acute pain of left s houlder (Primary Dx); Protrusion of cervical intervertebral disc; Pain in left elbow Start: 08-14-2023 Documentation procedure Mammog dae Coordinator [facility] Department Start: 08-14-2023 Letter encounter Mammography Coordinator [facility] Department Start: 08-13-2023 ambulatory DIDI LUJAN Facilit y:[facility] Start: 08-13-2023 End: 08-13-2023 Subsequent hospital visit by physician Screen/Diagnostic Mammo [facility] Work Phone: Mammography Comment on above: Encounter for screen ing mammogram for malignant neoplasm of breast [Z12.31] Asymptomatic [place] state [Z78.0] Start: 08-03-2023 Telephone encounter Em villarreal APRN.BIOLOGY LECTURER Work Phone: Neurology Comment on above: Results Start: 07-29-2023 End: 07-29-2023 Subsequent hospital visit by physician [facility] (1.5t[facility] Start: 07-06-2023 End: 07-06-2023 Patient encounter procedure Em Flynn APRN.BIOLOGY LECTURER Work Phone: Neurology Comment on above: Parkinson's disease without dyskinesia or fluctuating manifestations (HCC) (Primary Dx); Orthostatic hypotension; Dysphagia, unspecified type; Left arm pain; Numbness and tingling in left arm Start: 05-01-2023 End: 05-01-2023 Emergency department patient visit BEATER HEAD-C Alexandra Arreguin BEATER HEAD [facility] Start: 02-06-2023 Non-patient / Non-visit BEATER HEAD-C D ora Arreguin BEATER HEAD Work Phone: [facility] Work Phone: Start: 02-05-2023 Non-patient / Non-visit BEATER HEAD-C D ora Arreguin BEATER HEAD Work Phone: [facility] Work Phone: Start: 02-04-2023 Non-patient / Non-visit BEATER HEAD-C D ora Arreguin BEATER HEAD Work Phone: [facility] Work Phone: Start: 02-03-2023 Non-patient / Non-visit BEATER HEAD-C D ora Arreguin BEATER HEAD Work Phone: [facility] Work Phone: Start: 02-02-2023 Non-patient / Non-visit BEATER HEAD-C D ora Arreguin BEATER HEAD Work Phone: [facility] Work Phone: Start: 02-01-2023 End: 02-06-2023 Evaluation and management of inpatient BEATER HEAD-C Alexandra Arreguin BEATER HEAD [facility] Work Phone: Start: 01-20-2023 End: 01-20-2023 Patient encounter procedure Em Flynn APRN.BIOLOGY LECTURER Work Phone: Neurology Comment on above: Parkinson's disease without dyskinesia or fluctuating manifestations (Primary Dx); Hallucinations; Orthostatic hypotension; Insomnia, unspecified type Start: 01-05-2023 End: 01-05-2023 Patient encounter procedure BEATER HEAD-C Alexandra Arreguin BEATER HEAD Work Phone: [facility] Work Phone: Start: 12-29-2022 End: 12-29-2022 Patient encounter procedure BEATER HEAD-C Alexandra Arreguin NP Work Phone: [facility] Work Phone: Start: 10-09-2022 End: 10-09-2022 Office outpatient new 45 minutes Linden Flynn MD Work Phone: Neurology Comment on above: Parkinson's disease (HCC) (Primary Dx); Argyria of skin, accidental or unintentional, sequela; Depression, unspecified depression type Start: 2022 End: 2022 ambulatory [facility] Work Phone: Start: 2022 End: 2022 Patient encounter procedure [facility], Specimen Procedures Date Procedure Procedure Detail Performing Clinician Start: 01-25-2025 [facility] Start: 01-24-2025 Estimated creatinine clearance Tressadennis Rosales OLS Start: 01-23-2025 Total iron binding c apacity measurement Tressajenny Rosales OLS Start: 01-20-2025 Plain X-ray of hip Shob Bobby OLS Start: 01-20-2025 Fluoroscopic guidance [facility] Bobby OLS Start: 01-20-2025 [facility] Start: 01-20-2025 Prosthetic uncemente d hemiarthroplasty of hip [facility] Bobby OLS Start: 01-20-2025 Urnls dip stick/tabl et reagent auto microscopy Tressajenny Rosales OLS Start: 01-20-2025 Serum inorganic phos phate measurement Tressajenny Rosales OLS Start: 11-03-2024 Cardiovascular stres s test using pharmacologic stress agent Tressa Rosales OLS Start: 06-03-2024 Radionuclide study of abdomen Alexandra Arreguin BEATER HEAD-C Work Phone: Start: 10-02-2023 Arthrocentesis aspir &/inj major jt/bursa w/o us Yury Jasso MD Work Phone: Start: 09-29-2023 Radex shoulder compl ete minimum 2 views Claudia Manuel PA-C Work Phone: Start: 09-23-2023 Us breast uni real t jason with image limited [facility] Provider Start: 07-29-2023 Mri spinal canal cer vical w/o contrast matrl Em Flynn SENIOR NET SOFTWARE DEVELOPERJorgitoBIOLOGY LECTURER Work Phone: Start: 05-01-2023 CT cervical spine wi thout contrast BEATER HEAD-C Alexandra Arreguin BEATER HEAD Work Phone: Start: 05-01-2023 CT of head without contrast BEATER HEAD-C Alexandra Arreguin BEATER HEAD Work Phone: Start: 02-06-2023 Viral antigen assay BEATER HEAD- C Alexandra Arreguin BEATER HEAD Work Phone: Start: 02-02-2023 Plain X-ray of hip BEATER HEAD-C Alexandra Arreguin BEATER HEAD Work Phone: Start: 02-02-2023 Open reduction of fr acture of femur with internal fixation BEATER HEAD-C Alexandra Arreguin BEATER HEAD Work Phone: Start: 02-02-2023 Fluoroscopic guidance N P-C Alexandra Arreguin BEATER HEAD Work Phone: Start: 02-01-2023 Plain x-ray of elbow BEATER HEAD -C Alexandra Arreguin BEATER HEAD Work Phone: Start: 02-01-2023 CT of head without contrast BEATER HEAD-C Alexandra Arreguin BEATER HEAD Work Phone: Start: 02-01-2023 Plain chest X-ray BEATER HEAD-C Alexandra Arreguin BEATER HEAD Work Phone: Start: 02-01-2023 Plain X-ray of femur BEATER HEAD -C Alexandra Arreguin BEATER HEAD Work Phone: Plan of Treatment Date Care Activity Detail Author Start: 01-25-2025 Patient discharge [facility] Start: 01-20-2025 Provision of overbed trapeze [facility] Start: 01-20-2025 End: 01-20-2025 [facility] Start: 01-20-2025 Ambulation therapy management [facility] Start: 01-20-2025 Application of device [facility] Start: 01-20-2025 Assessment of risk of venous thromboembolism [facility] Start: 01-20-2025 Catheterization of vein [facility] Start: 01-20-2025 Exercises [facility] Start: 01-20-2025 Following clinical pathway protocol [facility] Start: 01-20-2025 Introduction of urinary catheter [facility] Start: 01-20-2025 Measuring intake and output [facility] Start: 01-20-2025 Neurovascular assessment [facility] Start: 01-20-2025 Patient education [facility] Start: 01-20-2025 Procedure discontinued [facility] Start: 01-20-2025 Provision of activity privileges [facility] Start: 01-20-2025 Recommendation to continue with treatment [facility] Start: 01-20-2025 Referral for physical therapy [facility] Start: 01-20-2025 Referral to occupational therapist [facility] Start: 01-20-2025 Vital signs measurements [facility] Start: 01-20-2025 Wound care [facility] Start: 01-20-2025 Care planning and problem solving actions [facility] Start: 01-20-2025 [facility] Start: 01-20-2025 Application of intermittent pneumatic compression device [facility] Start: 01-20-2025 Following clinical pathway protocol [facility] Start: 01-20-2025 Oxygen therapy [facility] Start: 01-20-2025 Referral to service [facility] Start: 01-20-2025 Admission procedure [facility] Start: 01-20-2025 Assessment of risk of venous thromboembolism [facility] Start: 01-20-2025 Insertion of catheter into peripheral vein [facility] Start: 01-20-2025 Providing care according to standard [facility] Start: 01-20-2025 Consultation [facility] Start: 01-20-2025 Documentation procedure [facility] Start: 01-20-2025 Measuring intake and output [facility] Start: 01-20-2025 End: 01-20-2025 [facility] Start: 12-29-2024 End: 12-29-2024 Patient encounter procedure 12/29/2024 10:00 AM EDT Office Visit Neurology [address] [address] Em Flynn APRN.BIOLOGY LECTURER [address] [address] 6 month follow up Neurology Comment on above: 6 month follow up Start: 07-29-2024 End: 07-29-2024 Patient encounter procedure 07/29/2024 3:00 PM EDT Office Visit Neuromuscular [facility] [address] [place] [address] Armen Madison MD [address] [place] [address] 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 Neuromuscular [facility] Comment on above: 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 Start: 07-29-2024 End: 10-28-2024 Cobalamin (Vitamin B12) [Mass/volume] in Serum or Plasma [facility] Comment on above: Expected: 07/29/2024, Expires: Start: 07-29-2024 End: 10-28-2024 Folate [Mass/volume] in Serum or Plasma [facility] Comment on above: Expected: 07/29/2024, Expires: Start: 07-29-2024 End: 10-28-2024 Hemoglobin A1c in Blood [facility] Work Phone: Comment on above: Expected: 07/29/2024, Expires: Start: 07-29-2024 End: 10-28-2024 IMMUNOFIXATION SCREEN, SERUM [facility] Comment on above: Expected: 07/29/2024, Expires: Start: 07-29-2024 End: 10-28-2024 KAPPA/ERASMO,KATE,SER [facility] Comment on above: Expected: 07/29/2024, Expires: Start: 07-29-2024 End: 10-28-2024 Methylmalonate [Moles/volume] in Serum or Plasma [facility] Comment on above: Expected: 07/29/2024, Expires: Start: 07-29-2024 End: 10-28-2024 VITAMIN B1 (THIAMINE), WHOLE BLOOD [facility] Comment on above: Expected: 07/29/2024, Expires: Start: 06-02-2024 Urine microalbumin profile DTaP,Tdap,Td Vaccine (2 - Td or Tdap) [facility] Start: 04-13-2024 Advance Directive Discussion Advance Directive Discussion [facility] Start: 04-07-2024 End: 04-07-2024 Patient encounter procedure 04/07/2024 10:00 AM EST Office Visit Neurology [address] [address] Em Flynn, SENIOR NET SOFTWARE DEVELOPER.BIOLOGY LECTURER [address] [place] [address] 3 month follow up Neurology Comment on above: 3 month follow up Start: 12-31-2023 End: 12-31-2023 Patient encounter procedure 12/31/2023 9:00 AM EDT Office Visit Neurology [address] [address] Em Flynn, SENIOR NET SOFTWARE DEVELOPER.BIOLOGY LECTURER [address] [place] [address] 3 month follow up Neurology Comment on above: 3 month follow up Start: 12-13-2023 Covid-19 Vaccine ( season) Covid-19 Vaccine ( season) [facility] Start: 12-13-2023 Covid-19 Vaccine ( season) Covid-19 Vaccine ( season) [facility] Start: 12-13-2023 Influenza vaccination [facility] Start: 11-20-2023 End: 11-20-2023 Patient encounter procedure 11/20/2023 7:45 AM EDT Appointment Mammography [address] [address] INCONCLUSIVE MAMMOGRAM - ORDER SCANNED IN [facility] 09/24/23 Mammography Comment on above: INCONCLUSIVE MAMMOGRAM - ORDER SCANNED I N [facility] 09/24/23 Start: 10-02-2023 End: 10-02-2023 Patient encounter procedure Orthopedics Comment on above: Acute pain of left shoulder [M25.512] L shoulder Start: 09-29-2023 End: 09-29-2023 Patient encounter procedure 09/29/2023 9:00 AM EDT Office Visit Neurology [address] [id number] Em Flynn, SENIOR NET SOFTWARE DEVELOPER.BIOLOGY LECTURER [address] [address] Return in about 3 months (around 10/06/2023). Neurology Comment on above: Return in about 3 months (around 10/06/19). Start: 09-23-2023 End: 09-23-2023 Patient encounter procedure 09/23/2023 9:20 AM EDT Appointment Mammography [address] [place] [address] Franki breast us, left breast diagnostic mammogram Mammography Comment on above: Franki breast us, left breast diagnostic m ammogram Start: 09-23-2023 Subsequent hospital visit by physician 09/23/2023 9:20 AM EDT Hospital Encounter Mammography [address] [place] [address] Inconclusive mammogram [R92.2] Mammography Comment on above: Inconclusive mammogram [R92.2] Start: 08-27-2023 End: 08-27-2023 Patient encounter procedure 08/27/2023 1:40 PM EDT Office Visit [facility] [address] [address] Stephan Sheehan PA-C [address] [place] [id number] 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] [facility] Comment on above: Protrusion of cervical intervertebral di sc [M50.20] Start: 08-13-2023 End: 08-13-2023 Patient encounter procedure Mammography Comment on above: MAMMOGRAM SCREENING BILATERAL DEXA BONE DENSITY Start: 05-01-2023 [facility] Start: 04-13-2023 Advance Directive Discussion Advance Directive Discussion [facility] Start: 04-13-2023 Behavioral Health Screening Behavioral Health Screening [facility] Start: 04-13-2023 Depression Assessment Depression Assessment [facility] Start: 02-09-2023 Blood chemistry [facility] Start: 02-08-2023 Blood chemistry [facility] Start: 02-07-2023 Blood chemistry [facility] Start: 02-06-2023 Patient discharge [facility] Start: 02-03-2023 Administration of blood product [facility] Start: 02-02-2023 Ambulation therapy management [facility] Start: 02-02-2023 Application of device [facility] Start: 02-02-2023 Exercises [facility] Start: 02-02-2023 Following clinical pathway protocol [facility] Start: 02-02-2023 Introduction of urinary catheter [facility] Start: 02-02-2023 Neurovascular assessment [facility] Start: 02-02-2023 Patient education [facility] Start: 02-02-2023 Provision of activity privileges [facility] Start: 02-02-2023 Recommendation to continue with treatment [facility] Start: 02-02-2023 Referral to occupational therapist [facility] Start: 02-02-2023 Referral to service [facility] Start: 02-02-2023 Vital signs measurements [facility] Start: 02-02-2023 Wound care [facility] Start: 02-02-2023 [facility] Start: 02-02-2023 End: 02-02-2023 Measuring intake and output [facility] Start: 02-01-2023 Application of intermittent pneumatic compression device [facility] Start: 02-01-2023 Following clinical pathway protocol [facility] Start: 02-01-2023 Application of ice collar, cap or bag [facility] Start: 02-01-2023 Assessment of risk of venous thromboembolism [facility] Start: 02-01-2023 Bedrest [facility] Start: 02-01-2023 Consultation [facility] Start: 02-01-2023 Fall prevention [facility] Start: 02-01-2023 Inhalation therapy procedure [facility] Start: 02-01-2023 Insertion of catheter into peripheral vein [facility] Start: 02-01-2023 Introduction of urinary catheter [facility] Start: 02-01-2023 Neurovascular assessment [facility] Start: 02-01-2023 Providing care according to standard [facility] Start: 02-01-2023 Referral to occupational therapist [facility] Start: 02-01-2023 Referral to service [facility] Start: 02-01-2023 Skin care [facility] Start: 02-01-2023 [facility] Start: 02-01-2023 End: 02-01-2023 Measuring intake and output [facility] Start: 02-01-2023 Admission procedure [facility] Start: 02-01-2023 Hospital admission, emergency, from emergency room, medical nature [facility] Start: 02-01-2023 Brain natriuretic peptide measurement [facility] Start: 12-12-2022 Covid-19 Vaccine ( season) Covid-19 Vaccine ( season) [facility] Start: 12-12-2022 Influenza vaccination [facility] Start: 04-13-2022 ADVANCE DIRECTIVE DISCUSSION ADVANCE DIRECTIVE DISCUSSION [facility] Start: 04-13-2022 DEPRESSION ASSESSMENT DEPRESSION ASSESSMENT [facility] Start: 01-07-2019 Shingrix Vaccine (2 of 2) Shingrix Vaccine (2 of 2) [facility] Start: 2016 RSV Vaccine (1 - 1-dose 75+ series) RSV Vaccine (1 - 1-dose 75+ series) [facility] Start: 2006 BONE DENSITY BONE DENSITY [facility] Start: 2006 Bone Density Screening Bone Density Screening [facility] Start: 2006 Pneumococcal Vaccine: 65+ (1 - PCV) Pneumococcal Vaccine: 65+ (1 - PCV) [facility] Start: 2006 Pneumococcal Vaccine: 65+ (1 of 1 - PCV) Pneumococcal Vaccine: 65+ (1 of 1 - PCV) [facility] Start: 2006 PNEUMOCOCCAL: 65+ (1 - PCV) PNEUMOCOCCAL: 65+ (1 - PCV) [facility] Start: 2006 Screening for osteoporosis Bone Density Screening [facility] Start: 2001 RSV Vaccine (1 - 1-dose 60+ series) RSV Vaccine (1 - 1-dose 60+ series) [facility] Start: 1991 SHINGRIX VACCINE (1 of 2) SHINGRIX VACCINE (1 of 2) [facility] Start: 1986 DIABETES SCREEN DIABETES SCREEN [facility] Start: 1986 Diabetes Screening Diabetes Screening [facility] Start: 1960 Urine microalbumin profile [facility] Start: 1959 Anxiety Screening Anxiety Screening [facility] Start: 1959 Depression Screening Depression Screening [facility] Start: 1959 Hepatitis B surface antibody level LDL CHOLESTEROL [facility] Start: 1941 COVID-19 VACCINE (#1) COVID-19 VACCINE (#1) [facility] Hematocrit [Volume Fraction] of Blood [facility] Hematocrit [Volume Fraction] of Blood [facility] Hemoglobin [Mass/vol ume] in Blood [facility] Hemoglobin [Mass/vol ume] in Blood [facility] Leukocytes [#/volume ] in Blood [facility] Leukocytes [#/volume ] in Blood [facility] Mean corpuscular hemoglobin concentration determination [facility] Mean corpuscular hemoglobin concentration determination [facility] Mean corpuscular hemoglobin determination [facility] Mean corpuscular hemoglobin determination [facility] End: 08-04-2024 MR Cervical spine WO contrast MRI CERVICAL SPINE WO IVCON Radiology Routine 1 Occurrences starting 07/06/2023 until 08/04/2024 [facility] Work Phone: Comment on above: 1 Occurrences starting 07/06/2023 until 08/04/2024 Neutrophil count [facility] Neutrophil count [facility] Neutrophil percent differential count [facility] Neutrophil percent differential count [facility] Patient Education [facility] Work Phone: Patient referral [facility] Work Phone: Platelets [#/volume] in Blood [facility] Platelets [#/volume] in Blood [facility] Red blood cell count [facility] Red blood cell count [facility] Red cell distributio n width determination [facility] Red cell distributio n width determination [facility] XR Shoulder - left 3 Views XR SHOULDER GENERAL 3V OR MORE AP/TRUE AP/OTHER LEFT Radiology Routine Chronic left shoulder pain 1 Occurrences starting 09/15/2023 [facility] Work Phone: Comment on above: 1 Occurrences starting 09/15/2023 [facility] Payers Date Payer Category Payer Self-pay 2024 Medicaid [id number] 2023 Medicaid [id number] 2023 Medicare (Managed Care) [facility] [id number] 2023 Medicare [id number] 2022 Medicare [id number] Unknown [id number] Unknown [id number] [id number]. 462 Unknown [id number] 2.16.840.1.136745.3.579.2. 462 Unknown [id number] 2.16.840.1.347841.3.579.2. 462 Unknown [id number] 2.16.840.1.921880.3.579.2. 462 Unknown [id number] 2.16.840.1.991018.3.579.2. 462 Unknown [id number] 2.16.840.1.404414.3.579.2. 462 Unknown [id number] 2.16.840.1.364339.3.579.2. 462 Unknown [id number] 2.16.840.1.218889.3.579.2. 462 Unknown [id number] 2.16.840.1.446891.3.579.2. 462 Unknown [id number] 2.16.840.1.124771.3.579.2. 462 Unknown [id number] 2.16.840.1.996011.3.579.2. 462 Unknown [id number] 2.16.840.1.014539.3.579.2. 462 Unknown [id number] 2.16.840.1.829766.3.579.2. 462 Unknown [id number] 2.16.840.1.199817.3.579.2. 462 Unknown [id number] 2.16.840.1.731261.3.579.2. 462 Social History Date Type Detail Facility Start: 2022 End: 05-01-2023 Tobacco smoking status [facility] Unknown if ever smoked [facility] Start: 1940 Sex Assigned At Female [facility] Start: 10-09-2022 End: 01-20-2025 Tobacco smoking status WIIS Ex-smoker [facility] History of tobacco use Current smoker [facility] History of tobacco use Cigarette Smoker [facility] Start: 10-09-2022 End: 08-27-2023 Tobacco use and exposure Smokeless tobacco non-user [facility] Start: 10-09-2022 End: 07-29-2024 Alcohol intake Lifetime non-drinker (finding) [facility] Start: 1940 Sex Assigned At Not on file [facility] Start: 01-20-2023 End: 07-29-2024 History of Social function [facility] Start: 01-20-2023 End: 07-29-2024 Tobacco use panel [facility] National Score (1-100), lower number is lower risk 51 [facility] Start: 06-16-2024 [facility] ([facility] NEGATED: Highlighted row [facility] NEGATED: Highlighted rowStart: NINF History of tobacco use Passive smoker [facility] Medical Equipment Procedure Code Equipment Code Equipment Origin al Text Equipment Identifier Dates Primary uncemented hemiarthroplasty of hip ([id number]) Uncoated hip femur prosthesis, one-piece [id number] FDA Start: 01-20-2025 Primary uncemented hemiarthroplasty of hip Uncoated hip femur prosthesis, one-piece ()[id number] FDA Start: 01-20-2025 Primary uncemented hemiarthroplasty of hip ([id number]) Coated hip femur prosthesis, modular ()[id number] FDA Start: 01-20-2025 ORIF, hip, using Gamma nail ([id number]) Orthopaedic bone screw, non-bioabsorbable, sterile ()[id number] FDA Start: 02-02-2023 ORIF, hip, using Gamma nail ([id number]) Femur nail, sterile ()[id number] FDA Start: 02-02-2023 ORIF, hip, using Gamma nail ([id number]) Orthopaedic bone screw, non-bioabsorbable, sterile ()[id number] FDA Start: 02-02-2023 Goals Date Patient Goal Desired Activity /State Functional Status Date Assessment Result Facility 01-25-2025 Functional status Ambulates [facility] Work Phone: 02-06-2023 Functional status Ambulates [facility] Work Phone: Mental Status Date Assessment Result Facility 01-25-2025 Cognitive function Voice/Name [facility] Work Phone: 02-06-2023 Cognitive function Voice/Name [facility] Work Phone: Clinical Notes 10-09-2022 to 01-25-2025 Note Date & Type Note Facility 01-25-2025 Note [facility] Medical Records Department [address] [place] [address] Discharge Summary 01/25/25 1449 MR#: [id number] Acct: [id number] Name: MONISHA COHN Rep #: [id number] : 1940 84 From: Davian Kelly MD PCP: Tressa Rosales Status:DIS IN [facility] Prov[facility] Date of Admission: 01/20/25 Primary Care [...] hypertension, CAD; with RCA stent at [facility] in [place] (2009) and subsequent inferior wall ST elevation AR s/p RCA stent with cardiogenic shock and [...] recently diagnosed COVID-19 who was transferred from [facility] after she was diagnosed with an [...] LOC with her fall. Dr. North of [facility] spoke to Dr. Tijerina of the orthopedic service here (more content not included)... [facility] 01-25-2025 Consult note [facility] 01-25-2025 Consult note [facility] 01-25-2025 Consult note Note Date/Time January 25, 2025 1:00pm [facility] Medical Records Department [address] [place] [address] Counseling Note - Pharmacy 01/25/25 0938 MR#: [id number] Acct: [id number] Name: MONISHA COHN Rep #:[id number] : 1940 84 From: Ephraim severino PCP: Tressa Rosales Status:ADM IN Y Location: [facility] FW950-3 Pharmacy OR Med Reconciliation Pharmacy Service has performed discharge [...] Signature (if applicable): Date CC: ~ Signed [facility] Work Phone: 1(783) 604-561010-15-2025 Discharge summary Author Davian Kelly [facility] Note Date/Time January 25, 2025 9 :25am [facility] Medical Records Department [address] [place] [address] [facility] MR#: [id number] Acct: [id number] Name: MONISHA COHN Rep #:[id number] 7 : 1940 84 From: Davian interiano MD PCP: Tressa Rosales Status:ADM IN Certification of patient admission REQUIRED AT TIME OF ADMISSION. I CERTIFY THAT POST-HOSPITAL F SERVICES ARE REQUIRED TO BE GIVEN ON AN IN-PATIENT BASIS BECAUSE OF THE ABOVE NAMED PATIENT'S NEED FOR [facility]CC CARE ON A CONTINUING BASIS FOR THE CONDITION(S) FOR WHICH HE/SHE WAS RECEIVING IN-PATIENT HOSPITAL SERVICES PRIOR TO HIS/HER TRANSFER TO THE [facility]. 01/25/25924<Electronically signed by Davian Kelly MD> [...] post repair 01/20/2025 -After mechanical fall at [facility] -Ortho consulted -Patient n.p.o. -Pain control/supportive [...] Dr. Braulio Tijerina MD; Tressa Rosales ~ [facility] Work Phone: 1(148) 209-568410-15-2025 Discharge summary [facility] Medical Records Department [address] [place] [address] Transfer to [facility] MR#: [id number] Acct: [id number] Name: MONISHA COHN Rep #:[id number] 7 : 1940 84 From: Davian interiano MD PCP: Tressa Rosales Status:ADM IN Certification of patient admission REQUIRED AT TIME OF ADMISSION. I CERTIFY THAT POST-HOSPITAL ECF SERVICES ARE REQUIRED TO BE GIVEN ON AN IN-PATIENT BASIS BECAUSE OF THE ABOVE NAMED PATIENT'S NEED FOR MCC CARE ON A CONTINUING BASIS FOR THE [...] post repair 01/20/2025 -After mechanical fall at [facility] -Ortho consulted -Patient n.p.o. -Pain control/supportive [...] Dr. Braulio Tijerina MD; Tressa Rosales ~ [facility]10-14-2025 Progress note Author Davian Kelly [facility] Note Date/Time January 24, 2025 1 0:33am [facility] Medical Records Department [address] [place] [address] Progress Note - Hospitalist 01/24/25 1031 MR#: [id number] Acct: [id number] Name: MONISHA COHN Rep #:[id number] : 1940 84 From: Davian interiano MD PCP: Tressa Rosales Status:ADM IN Location: [facility] ET850-2 Subjective Subjective Doing well, no issues overnight. [...] post repair 01/20/2025 -After mechanical fall at [facility] -Ortho consulted -Patient n.p.o. -Pain control/supportive [...] DVT: Xarelto Charges/Coding Visit Charges Inpatient E&M: 26767 Subs Hosp L2 01/24/25 1033 <Electronically signed by Davian Kelly MD> Cosigner Signature (if applicable): CC: ~ Signed [facility] Work Phone: 1(541) 576-640210-14-2025 Progress note [facility] Medical Records Department [address] [place] [address] Progress Note - Hospitalist 01/24/25 1031 MR#: [id number] Acct: [id number] Name: MONISHA COHN Rep #:[id number] : 1940 84 From: Davian interiano MD PCP: Tressa Rosales Status:ADM IN Location: [place] [address]-1 Subjective Subjective Doing well, no issues overnight. [...] post repair 01/20/2025 -After mechanical fall at [facility] -Ortho consulted -Patient n.p.o. -Pain control/supportive [...] DVT: Xarelto Charges/Coding Visit Charges Inpatient E&M: 84334 Subs Hosp L2 01/24/25 1033 Cosigner Signature (if applicable): CC: ~ Signed [facility]10-13-2025 Progress note Author Davian Kelly [facility] Note Date/Time January 23, 2025 1 1:01am [facility] Medical Records Department [address] [place] [address] Progress Note - Hospitalist 01/23/25 1053 MR#: [id number] Acct: [id number] Name: MONISHA COHN Rep #:[id number] : 1940 84 From: Davian interiano MD PCP: Tressa Rosales Status:ADM IN Location: [facility]3 JB864-5 Subjective Subjective Pain is controlled, no issues [...] DVT: Xarelto Charges/Coding Visit Charges Inpatient E&M: 27960 Subs Hosp L2 01/23/25 1101 <Electronically signed by Davian Kelly MD> Cosigner Signature (if applicable): CC: ~ Signed [facility] Work Phone: 1(144) 579-288910-13-2025 Progress note [facility] Medical Records Department [address] [place] [address] Progress Note - Hospitalist 01/23/25 1053 MR#: [id number] Acct: [id number] Name: MONISHA COHN Rep #:[id number] : 1940 84 From: Davian interiano MD PCP: Tressa Rosales Status:ADM IN Location: [place] [address] Subjective Subjective Pain is controlled, no issues [...] post repair 01/20/2025 -After mechanical fall at [facility] -Ortho consulted -Patient n.p.o. -Pain control/supportive [...] DVT: Xarelto Charges/Coding Visit Charges Inpatient E&M: 20411 Subs Hosp L2 01/23/25 1101 Cosigner Signature (if applicable): CC: ~ Signed [facility]10-12-2025 Progress note Author Davian Kelly [facility] Note Date/Time January 22, 2025 9 :19am [facility] Medical Records Department [address] [place] [address] Progress Note - Hospitalist 01/22/25917 MR#: [id number] Acct: [id number] Name: MONISHA COHN Rep #:[id number] 0 : 1940 84 From: Davian interiano MD PCP: Tressa Rosales Status:ADM IN Location: [place] [address]-1 Subjective Subjective Doing well, pain is controlled. [...] post repair 01/20/2025 -After mechanical fall at [facility] -Ortho consulted -Patient n.p.o. -Pain control/supportive [...] DVT: Xarelto Charges/Coding Visit Charges Inpatient E&M: 31630 Subs Hosp L2 01/22/25918 <Electronically signed by Davian Kelly MD> Cosigner Signature (if applicable): CC: ~ Signed [facility] Work Phone: 1(732) 368-584610-12-2025 Progress note [facility] Medical Records Department [address] [place] [address] Progress Note - Hospitalist 01/22/25917 MR#: [id number] Acct: [id number] Name: MONISHA OCHN Rep #:[id number] 0 : 1940 84 From: Davian interiano MD PCP: Tressa Rosales Status:ADM IN Location: [place] [address] Subjective Subjective Doing well, pain is controlled. [...] DVT: Xarelto Charges/Coding Visit Charges Inpatient E&M: 39764 Subs Hosp L2 01/22/25 0919 Cosigner Signature (if applicable): CC: ~ Signed [facility]10-11-2025 Progress note Author Braulio Tijerina [facility] Note Date/Time January 21, 2025 1 :41pm [facility] Medical Records Department [address] [place] [address] Progress Note - Orthopedic 01/21/25 1335 MR#: [id number] Acct: [id number] Name: MONISHA COHN Rep #:[id number] : 1940 84 From: Braulio Fontana PCP: Tressa Rosales Status:ADM IN Location: [facility] TZ955-6 Subjective Subjective Patient states she is doing [...] Cosigner Signature (if applicable): CC: ~ Signed [facility] Work Phone: 1(435) 111-811110-11-2025 Progress note [facility] Medical Records Department [address] [place] [address] Progress Note - Orthopedic 01/21/25 1335 MR#: [id number] Acct: [id number] Name: MONISHA COHN Rep #:[id number] 7 : 1940 84 From: Braulio Fontana PCP: Tressa Rosales Status:ADM IN Location: [facility] EZ893-3 Subjective Subjective Patient states she is doing [...] Cosigner Signature (if applicable): CC: ~ Signed [facility]10-11-2025 Progress note Author Davian Kelly [facility] Note Date/Time January 21, 2025 9 :43am [facility] Medical Records Department [address] [place] [address] Progress Note - Hospitalist 01/21/25 0939 MR#: [id number] Acct: [id number] Name: SUKIMONISHA ARIEL Rep #:[id number] 7 : 1940 84 From: Davian interiano MD PCP: Tressa Rosales Status:ADM IN Location: [facility] AG559-7 Subjective Subjective Doing well, no issues overnight. [...] post repair 01/20/2025 -After mechanical fall at [facility] -Ortho consulted -Patient n.p.o. -Pain control/supportive [...] DVT: Xarelto Charges/Coding Visit Charges Inpatient E&M: 95347 Subs Hosp L2 01/21/25942 <Electronically signed by Davian Kelly MD> Cosigner Signature (if applicable): CC: ~ Signed [facility] Work Phone: 1(779) 859-585210-11-2025 Progress note [facility] Medical Records Department [address] [place] [address] Progress Note - Hospitalist 01/21/25938 MR#: [id number] Acct: [id number] Name: MONISHA COHN Rep #:[id number] 7 : 1940 84 From: Davian interiano MD PCP: Tressa Rosales Status:ADM IN Location: [facility] OC109-2 Subjective Subjective Doing well, no issues overnight. [...] and chronic changes. Reading Location: [facility] Hip X-Ray 01/20/25 16:20 IMPRESSION: Uncomplicated appearing right hip hemiarthroplasty. Left hip chronic and surgical changes. Reading Location: [facility] Physical Exam Narrative General: Alert, Oriented x3, [...] DVT: Xarelto Charges/Coding Visit Charges Inpatient E&M: 27190 Subs Hosp L2 01/21/25 0943 Cosigner Signature (if applicable): CC: ~ Signed [facility]10-10-2025 Consult note Author Brennen Rojas [facility] Note Date/Time January 20, 2025 5 :17pm [facility] Medical Records Department [address] [place] [address] Anesthesia Postop Eval I 01/20/25 1715 MR#: [id number] Acct: [id number] Name: MONISHA COHN Rep #:[id number] : 1940 84 From: Brennen Rojas CRNA PCP: Tressa Rosales Status:ADM IN Y Race: C Location: [place] [address] Anesthesia: Postop Eval I Current Vital Signs [...] Yes 01/20/251716 <Electronically signed by Brennen paz PRICER BAGGER> Date _ Brennen Rojas PRICER BAGGER Cosigner Signature: Date CC: ~ Signed [facility] Work Phone: 1(595) 603-904910-10-2025 Consult note Author Jareth Shepard [facility] Note Date/Time January 25, 2025 1 :00pm [facility] Medical Records Department [address] [place] [address] Anesthesia Postop Eval II 01/20/251705 MR#: [id number] Acct: [id number] Name: MONISHA COHN Rep #:[id number] : 1940 84 From: Jareth Shepard MD PCP: Tressa Rosales Status:ADM IN Y Race: C Location: [facility] MS309 -1 Anesthesia Postop Eval I Sum [...] Jareth Elliott Signature: Date CC: ~ Signed [facility] Work Phone: 1(229) 234-523510-10-2025 Procedure note [facility] Medical Records Department [address] [place] [address] Operative Report 01/20/25 1545 MR#: [id number] Acct: [id number] Name: MONISHA COHN Rep #:[id number] : 1940 84 From: Braulio Fontana PCP: Tressa Rosales Status:ADM IN [id number] (Standard) Operative Information Date of Procedure: 01/20/25 Pre-Operative Diagnosis: Right hip subcapital femoral neck fracture Post-Operative Diagnosis: Right hip subcapital femoral neck fracture Surgery/Procedure Performed: Right hip endoprosthesis standards engineer: Yes Manufacture Specialist: Edyta Bhatti Tasks completed by first aid trainer: Opening, Closing, Implanting device and Retracting Additional mailing machine assistant?: No Type of Anesthesia: General RN [...] awakened by anesthesia and transferred [facility]. Patient was then transferredto the PACU [...] Dr. Braulio Tijerina MD; Tressa Rosales~ Signed [facility]10-10-2025 Consult note [facility] Medical Records Department [address] [place] [address] Anesthesia Postop Eval I 01/20/25 1715 MR#: [id number] Acct: [id number] Name: MONISHA COHN Rep #:[id number] 0 : 1940 84 From: Brennen Rojas CRNA PCP: Tressa Rosales Status:ADM IN Y Race: C Location[place] [facility] [id number] -1 Anesthesia: Postop Eval I Current [...] Eval 1 completed: Yes 01/20/25 1717 an PRICER BAGGER> Date _ Brennen Rojas PRICER BAGGER Cosigner Signature: Date CC: ~ Signed [facility]10-10-2025 Radiology Diagnostic study note [facility] Imaging Services [address] [place] [address] [id number] Hip Min 2 Views (Portable) MR#: [id number] Acct: [id number] Name: MONISHA COHN Rep #: [id number] 3 : 1940 F 84 From: Christine Gillette MD PCP: Tressa Rosales Status: ADM IN Study:Hip Min 2 Views (Portable) Date of Exam : 01/20/25 Exam# [id number] Ordering Dr: Rachele Tijerina MD PROCEDURE: HIP [...] Dr. Braulio Tijerina MD; Tressa Rosales ~ Data Miner: Signed [facility]10-10-2025 Consult note Author Braulio Tijerina [facility] Note Date/Time January 20, 2025 2 :24pm [facility] Medical Records Department [address] [place] [address] Consultation - Orthopedics 01/20/25 1415 MR#: [id number] Acct: [id number] Name: MONISHA COHN Rep #:[id number] : 1940 84 From: Braulio Fontana PCP: Tressa Rosales Status:ADM IN Location: [facility] [id number] HPI Consult Data Date of Consult: 01/20/25 [...] Patient notes that she lives in a snf facility and ambulates with a walker or uses a wheelchair. She does notwalk independently. She was reported to have fallen yesterday and sustained an injury to her right hand and hip. She was seen at an outside hospital and requested transfer to [place] as they did not have orthopedics. She [...] denies any current treatment or active malignancies. 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 Cloudy, Urine pH 6.5, Ur Specific [place] 1.010, Urine Protein 15 H, Urine Glucose [...] Signature (if applicable): CC: Tressa Rosales~ Signed [facility] Work Phone: [phone] 440-282710-10-2025 Radiology Diagnostic study note [facility] Imaging Services [address] [place], [place] [address] Hip Min 2 Views (Portable) MR#: [id number] Acct: [id number] Name: MONISHA COHN Rep #: [id number] 4 : 1940 F 84 From: Christine Gillette MD PCP: Tressa Rosales Status: ADM IN Study:Hip Min 2 Views (Portable) Date of Exam : 01/20/25 Exam# [id number] Ordering Dr: Rachele Tijerina MD PROCEDURE: HIP [...] chronic changes. Reading [facility] CC: Dr. Braulio Tijerina MD; Tressa Rosales ~ Data Miner: Signed [facility]10-10-2025 Consult note Author Jareth [facility] Note Date/Time January 20, 2025 2 :03pm [facility] Medical Records Department [address] [place] [address] Pre-Anesthesia Evaluation 01/20/25 1342 MR#: [id number] Acct: [id number] Name: MONISHA COHN Rep #:[id number] : 1940 84 From: Jareth Shepard MD PCP: Tressa Rosales Status:ADM IN Y Race: C Location: [place] [address] -1 ASA Classification* ASA Classification ASA Classification: [...] hip hemiarthroplasty Anesthesia History 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 Hx Hospitalization Any Problems With Anesthesia No [...] take am of surgery PONV 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 Female HX of Motion Sickness HX of N/V After Surgery Non-Smoker Duration of Surgery greater than 60 minutes Number of Risk Factors PONV Score Height & Weight Height & Weight: Anesthesia: Height & Weight Height 5 ft 1.81 in 01/20/25 11:58 Weight: 75 kg 01/20/25 11:58 Body Mass Index (BMI) 30.4 01/20/25 11:58 Respiratory Assessment Respiratory Assessment - 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: Respiratory Tract Infection Hx - 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 Hx Respiratory Tract Infection Yes: covid 01/20/25 [...] STOP Sleep Apnea STOP Sleep Apnea - 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: STOP Sleep Apnea - 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 Hx Hypertension Yes 01/20/25 01:18 Hx Sleep [...] 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: 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 Tobacco Use Smoking Status Former smoker 01/20/25 01:18 Hx Tobacco Use No 01/20/25 01:18 Years Smoking Packs Smoked per Day Smoking Cessation Date was No - quit smoking greater 01/20/25 01:18 within the last 15 years than 15 years ago Hx Smoking Cessation Date 04/13/79 01/20/25 01:18 Hx Smoking Cessation Counseling Hematologic Medial History Hematologic Hx - 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: Hematologic Medical Hx - rib bender Hx of Blood Transfusion Yes 01/20/25 01:18 [...] confused, unrespo /Reproduction History /Reproductive History - 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: /Reproductive Hx- 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 Hx Now No 01/20/25 01:31 Gestational Age [...] mls @ 15 mls/hr 01/20/25 01:13 IV .[id number] PRN Saline Flush Sodium Chloride 250 mls @ 15 mls/hr 01/20/25 01:13 IV .[id number] PRN Additional IVPB Infusion Lactated Ringer's 1,000 [...] coronary artery (~12/22/21) Atherosclerotic heart disease of chilkoot coronary artery without angina pectoris ST elevation [...] mg chewable tablet 125 mg PO QD-BID VT N abdominal 12/28/24 Unknown History (Mylanta Gas) [...] MD Cosigner Signature: Date CC: ~ Signed [facility] Work Phone: 1(498) 771-766210-10-2025 Consult note [facility] Medical Records Department [address] [place] [address] Consultation - Orthopedics 01/20/25 1415 MR#: [id number] Acct: [id number] Name: MONISHA COHN Rep #:[id number] : 1940 84 From: Braulio Fontana PCP: Tressa Rosales Status:ADM IN Location: [facility] CH278-3 HPI Consult Data Date of Consult: 01/20/25 [...] Patient notes that she lives in a snf facility and ambulates with a walker or uses a wheelchair. She does notwalk independently. She was reported to have fallen yesterday and sustained an injury to her right hand and hip. She was seen at an outside hospital and requested transfer to [place] as they did not have orthopedics. She [...] Patient denies any current treatment or activemalignancies. 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 Cloudy, Urine pH 6.5, Ur Specific [place] 1.010, Urine Protein 15 H, Urine Glucose [...] Signature (if applicable): CC: Tressa Rosales~ Signed [facility]10-10-2025 Progress note Author Darline Lundy [facility] Note Date/Time January 20, 2025 1 2:07pm [facility] Medical Records Department [address] [place] [address] Progress Note - Hospitalist 01/20/25 0842 MR#: [id number] Acct: [id number] Name: MONISHA COHN Rep #:[id number] : 1940 84 From: Darline Lundy MD PCP: Tressa Rosales Status:ADM IN Location: MS3 [id number] Hospitalist Note 84y/o F with a history of coronary artery disease with RCA stent, Parkinson's disease, fibromyalgia and overactive bladder, recent COVID diagnosis, who presented [facility] ED 01/20/2025 as a transfer from [place] [facility] after she was found to have an impacted right femoral neck fracture. Reportedlyshe was at [facility] when she sustained a mechanical fall on her right side and subsequently could not please ambulate to assess for home O2 needs. Was noted to have a scalp hematoma and metacarpal fracture of right hand but denied any loss of consciousness with the fall. [place] ED physician spoke to Dr. Tijerina withorthopedisofi [...] Cosigner Signature (if applicable): CC: ~ Signed [facility] Work Phone: 1(999) 853-489510-10-2025 Consult note [facility] Medical Records Department [address] [place] [address] Pre-Anesthesia Evaluation 01/20/25 1342 MR#: [id number] Acct: [id number] Name: MONISHA COHN Rep #:[id number] : 1940 84 From: Jareth Shepard MD PCP: Tressa Rosales Status:ADM IN Y Race: C [place] [facility] [place] ASA Classification* ASA [...] hip hemiarthroplasty Anesthesia History 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 Hx Hospitalization Any Problems With Anesthesia No [...] take am of surgery PONV 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 Female HX of Motion Sickness HX of N/V After Surgery Non-Smoker Duration of Surgery greater than 60 minutes Number of Risk Factors PONV Score Height & Weight Height & Weight: Anesthesia: Height & Weight Height 5 ft 1.81 in 01/20/25 11:58 Weight: 75 kg 01/20/25 11:58 Body Mass Index (BMI) 30.4 01/20/25 11:58 Respiratory Assessment Respiratory Assessment - 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: Respiratory Tract Infection Hx - 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 Hx Respiratory Tract Infection Yes: covid 01/20/25 [...] STOP Sleep Apnea STOP Sleep Apnea - 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: STOP Sleep Apnea - 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 Hx Hypertension Yes 01/20/25 01:18 Hx Sleep [...] 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: 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 Tobacco Use Smoking Status Former smoker 01/20/25 01:18 Hx Tobacco Use No 01/20/25 01:18 Years Smoking Packs Smoked per Day Smoking Cessation Date was No - quit smoking greater 01/20/25 01:18 within the last 15 years than 15 years ago Hx Smoking Cessation Date 04/13/79 01/20/25 01:18 Hx Smoking Cessation Counseling Hematologic Medial History Hematologic Hx - 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: Hematologic Medical Hx - rib bender Hx of Blood Transfusion Yes 01/20/25 01:18 [...] confused, unrespo /Reproduction History /Reproductive History - 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: /Reproductive Hx- 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 Hx Now No 01/20/25 01:31 Gestational Age [...] mls @ 15 mls/hr 01/20/25 01:13 IV .[id number] PRN Saline Flush Sodium Chloride 250 mls @ 15 mls/hr 01/20/25 01:13 IV .[id number] PRN Additional IVPB Infusion Lactated Ringer's 1,000 [...] Glycol 3350 17 Gm Packet PO DAILY [facility] Psyllium Hydrophilic Mucilloid 1 packet 01/20/25 10:00 Psyllium 1 Packet PO DAILY [facility] Sodium Chloride 10 - 40 ml 01/20/25 01:13 01/20/25 09:21 0.9% Saline Lock 10 Ml Syringe IV 10 ml UD PRN Administration SALINE FLUSH PFSH Medical History Nocturia Urge incontinence Overactive bladder Former tobacco use Depression Hypertension Fall CHI (closed head injury) Presence of stent in coronary artery (~12/22/21) Atherosclerotic heart disease of chilkoot coronary artery without angina pectoris ST elevation [...] mg chewable tablet 125 mg PO QD-BID VT N abdominal 12/28/24 Unknown History (Mylanta Gas) [...] MD Cosigner Signature: Date CC: ~ Signed [facility]10-10-2025 Progress note [facility] Medical Records Department [address] [place] [address] Progress Note - Hospitalist 01/20/25 0842 MR#: [id number] Acct: [id number] Name: MONISHA COHN Rep #:[id number] : 1940 84 From: Darline Lundy MD PCP: Tressa Rosales Status:ADM IN Location: MS3 [id number] Hospitalist Note 84y/o F with a history of coronary artery disease with RCA stent, Parkinson's disease, fibromyalgiaand overactive bladder, recent COVID diagnosis, who presented [facility] ED 01/20/2025 as a transfer from [place] [facility] after she was found to have an impacted right femoral neck fracture. Carla masterson was at [facility] when she sustained a mechanical fall on her right side and subsequently could not please ambulate to assess for home O2 needs. Was noted to have a scalp hematoma and metacarpal fracture of right hand but denied any loss of consciousness with the fall. [place] ED physician spoketo Dr. Tijerina withorthopedics who recommended admission to the hospital service with formal consultation for ORIF. Patient was transferred to a medical floor. # Impacted right intertrochanteric fracture of the femoral neck and metacarpal fracture right hand -After mechanical fall at [facility] -Ortho consulted -Patient n.p.o. -Pain control/supportive [...] Cosigner Signature (if applicable): CC: ~ Signed [facility]10-10-2025 History and physical note Author Stephan Beard [facility] Note Date/Time January 20, 2025 6 :54am [facility] Medical Records Department [address] [place] [address] H&P Exam - Hospitalist 01/20/25 0112 MR#: [id number] Acct: [id number] Name: MONISHA COHN Rep #:[id number] : 1940 84 From: Stephan Hernandez DO PCP: Tressa Rosales Status:ADM IN Location: ID3 [id number] [facility] - General General Date of Admission: 01/20/25 Date of Service: 01/20/25 Chief Complaint: Fall with Right Hip Fracture. HPI Narrative MONISHA COHN, is a 84 F with a past medical history of essential hypertension; currently not on treatment, hyperlipidemia; on atorvastatin, former tobacco abuse; with subsequent COPD and pulmonary hypertension, CAD; with RCA stent at [facility] in [place] (2009) and subsequent inferior wall ST elevation AR s/p RCA stent with cardiogenic shock and [...] recently diagnosed COVID-19 who was transferred from [facility] she was diagnosed with an impacted Right [...] LOC with her fall. Dr. [facility] of [facility] spoke to Dr. Tijerina of the orthopedic service here who recommended admission to the hospitalist service with formal consultation pending in the a.m. for ORIF. She was then admitted to the generalmedical floor for ongoing care for stay that is expected to extend beyond 2 midnights. [facility] Medical History Nocturia Urge incontinence Overactive bladder Former tobacco use Depression Hypertension Fall CHI (closed head injury) Presence of stent in coronary artery (~12/22/21) Atherosclerotic heart disease of chilkoot coronary artery without angina pectoris ST elevation [...] mg chewable tablet 125 mg PO QD-BID VT N abdominal 12/28/24 Unknown History (Mylanta Gas) [...] in AM. Give acetaminophen as needed for utzu-nz-yccyfvmg (level 1-5/10) pain or fever. Give morphine [...] 4. CAD; with RCA stent at [facility] in [place] (2009) and subsequent inferior wall ST elevation AR s/p RCA stent with cardiogenic shock and [...] 75 minutes. Charges/Coding Visit Charges Inpatient E&M: 54044 Init Hosp L3 01/20/25 0654 <Electronically signed by Stephan Martel DO> Cosigner Signature (if applicable): CC: Dr. Stephan Martel DO; Tressa Rosales~ Signed [facility] Work Phone: 1(846) 960-410110-10-2025 History and physical note [facility] Medical Records Department [address] [place] [address] H&P Exam - Hospitalist 01/20/25 0112 MR#: [id number] Acct: [id number] Name: MONISHA COHN Rep #:[id number] : 1940 84 From: Stephan Hernandez DO PCP: Tressa Rosales Status:ADM IN Location: ID3 [id number] [facility] - General General Date of Admission: 01/20/25 Date of Service: 01/20/25 Chief Complaint: Fall with Right Hip Fracture. HPI Narrative MONISHA COHN, is a 84 F with a past medical history of essential hypertension; currently not on treatment, hyperlipidemia; on atorvastatin, former tobacco abuse; with subsequent COPD and pulmonary hypertension, CAD; with RCA stent at [facility] in [place] (2009) and subsequent inferior wall ST elevation AR s/p RCA stent with cardiogenic shock and [...] recently diagnosed COVID-19 who was transferred from [facility] she was diagnosed with an impacted Right [...] LOC with her fall. Dr. [facility] of [facility] spoke to Dr. Tijerina of the orthopedic service here who recommended admission to the hospitalist service with formal consultation pending in the a.m. for ORIF. She was then admitted to the generalmedical floor for ongoing care for stay that is expected to extend beyond 2 midnights. [facility] Medical History Nocturia Urge incontinence Overactive bladder Former tobacco use Depression Hypertension Fall CHI (closed head injury) Presence of stent in coronary artery (~12/22/21) Atherosclerotic heart disease of chilkoot coronary artery without angina pectoris ST elevation [...] mg chewable tablet 125 mg PO QD-BID VT N abdominal 12/28/24 Unknown History (Mylanta Gas) [...] in AM. Give acetaminophen as needed for khqw-nz-oixzsonc (level 1-5/10) pain or fever. Give morphine [...] 4. CAD; with RCA stent at [facility] in [place] (2009) and subsequent inferior wall ST elevation AR s/p RCA stent with cardiogenic shock and [...] 75 minutes. Charges/Coding Visit Charges Inpatient E&M: 50207 Init Hosp L3 01/20/25 0654 Cosigner Signature (if applicable): CC: Dr. 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 CAD (coronary artery disease) chroni c September 27, 2024 10:37am Essential (primary) hypertension chr onic September 27, 2024 10:37am Hyperlipidemia chronic September 27, 2024 10:37am Non-rheumatic mitral regurgitation chronic September 27, 2024 10:37am Parkinsons disease chronic September 112024 10:37am [facility] Work Phone: [phone]) 207-185706-17-2025 Evaluation note* Diagnosis Onset Date Resolution Status [...] 2024 12:46pm Parkinsons disease chronic 2024 12:46pm [facility] Work Phone: 1(757) 692-699106-17-2025 Progress [facility] [address] [place] [address] OFFICE VISIT Date of Service: 09/27/24 MR#: [id number] Acct: [id number] Name: MONISHA COHN Rep #: [id number] : 1940 Provider: Dr. Domingo Vernon MD Age/Sex: 84/F [place] [facility] [place] Status: Signed HPI HPI History [...] NIBP Intake Visit Reasons: 6 M FU Costume Design Teacher Required: No Accompanied by: Is patient in [...] past year?: Yes (no major injuries; 2) [facility] Medical History Atherosclerotic heart disease of chilkoot coronary artery without angina pectoris Bladder spasms [...] Supplemental Info Supplemental Information ECHOCARDIOGRAM 12/23/21 @ [facility] Left ventricular ejection fraction [...] tricuspid valve regurgitation Cath Intervention 12/20/09 @ [facility] Percutaneous coronary angioplasty and stenting of the right coronary artery withtwo drug eluting stents 2.5x30mm and 2.5x12mm Cath Intervention 12/22/21 @ [facility] Percutaneous coronary intervention in the right coronary artery with a 2.75x22 mm MIKKI drug elutingstent Assessment and Plan Assessment and Plan (1) CAD (coronary artery disease): Status: Chronic Plan: History of inferior AR. History of drug-eluting stents placement to the [...] Date (if applicable) CC: Tressa Rosales ~ [facility]06-17-2025 Progress note Author Danielle Vernon [facility] Note Date/Time September 27, 2024 11:5 1am [facility] [place] [facility] [place] [id number] [facility] [address] [place] [address] OFFICE VISIT Date of Service: 09/27/24 MR#: [id number] Acct: [id number] Name: MONISHA COHN Rep #: [id number] : 1940 Provider: Dr. Domingo Vernon MD Age/Sex: 84/F Location[place] [facility] Status: Signed HPI HPI History [...] NIBP Intake Visit Reasons: 6 M FU Costume Design Teacher Required: No Accompanied by: Is patient in [...] past year?: Yes (no major injuries; 2) [facility] Medical History Atherosclerotic heart disease of chilkoot coronary artery without angina pectoris Bladder spasms [...] Supplemental Info Supplemental Information ECHOCARDIOGRAM 12/23/21 @ [facility] Left ventricular ejection fraction [...] tricuspid valve regurgitation Cath Intervention 12/20/09 @ [facility] Percutaneous coronary angioplasty and stenting of the right coronary artery withtwo drug eluting stents 2.5x30mm and 2.5x12mm Cath Intervention 12/22/21 @ [facility] Percutaneous coronary intervention in the right coronary artery with a 2.75x22 mm MIKKI drug eluting stent Assessment and Plan Assessment and Plan (1) CAD (coronary artery disease): Status: Chronic Plan: History of inferior AR. History of drug-eluting stents placement to the [...] Date (if applicable) CC: Tressa Rosales ~ [facility] Work Phone: [phone] Instructions* Patient Instructions* Armen Madison MD - [...] effects of this neuropathy. [facility] History of Present illness Narrative* Armen Madison MD - 07/29/2024 3:00 PM EDT [facility] [place] [facility] New Patient Visit Note Consultation [...] which included preparing to see the patient, [id number] patient care, completing clinical documentation, performing a medically appropriate examination, counseling and educating the patient/family/caregiver, and ordering medications, tests,or procedures. Armen Madison MD Neuromuscular Medicine (NM) Staff [facility], [facility] [place] [facility]-2025 NoteHNO ID: [id number] Author: ARMEN MADISON MD Service: ? Author Type: Physician Type: Progress Notes Filed: 07/29/2024 15:33 Note Text: [facility] [place] [facility] New Patient Visit Note Consultation [...] will be communicated to the patient via telephone/Showroomprivehart. Patient to call office if not contacted after expected testing turnaround time. I spent a total of 34 minutes on the date of the service which included prepari (more content not included)...[facility]03-18-2025 Instructions* Patient Instructions* Em Flynn APRN.CNP - [...] or you can send a message through [employer]. You can also now schedule and select appointments through [employer]. Em Flynn APRN.RUPALI documented in this [facility] History of Present illness Narrative* Em Flynn APRN.RUPALI - 06/28/2024 8:00 AM EDT [facility] - FOLLOW UP EVALUATION The patient consented to the use of ambient [employer] software for draft documentation of the visit consistent with [facility] s Notice of Privacy Practices. Alexandra Arreguin APRN.RUPALI [address] [address] Dear Alexandra Arreguin APRN.CNP: I had the [...] directives (living will and durable power of ip attorney for healthcare): By Email: Send your document(s) to as an attachment in either PDF, TIFF, or JPEG format. By Mail: [facility] Information Management, Ab7 Advance Directive Processing [address] [place], [place] [address] By In person at any [facility] location Please note: You can use the address or fax number regardless of which 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 [...] c) the amplitude decrements startingafter the 1st vvhf-zjc-uuxal sequence. Hand Movements Left 2-Mild. a) 3 [...] or around: 12/29/24 Level of service : 28464 (40-68 min). Time spent 59 min on the day of service, which included preparing to see the patient, rjdv-cs-ggpf patient care, completing clinical documentation, obtaining and/or reviewing separately obtained history, performing a medically appropriate examination, counseling and educating the patient/family/caregiver, and ordering medications, tests, or procedures. Em Flynn APRN.RUPALI documented in this encounterSouthwest [facility] Center03-18-2025 NoteHNO ID: [id number] Author: EM FLYNN APRN.CNP Service: ? Author Type: Nurse Practitioner Type: Progress Notes Filed: 06/28/2024 23:22 Note Text: [facility] - FOLLOW UP EVALUATION The patient consented to the use of ambient [employer] software for draft documentation of the visit consistent with [facility]?s Notice of Privacy Practices. Alexandra Arreguin APRN.CNP [address] [address] Dear Alexandra Arreguin APRN.BIOLOGY LECTURER: I had the pleasure of seeing Ms. [...] directives (living will and durable power of ip attorney for healthcare): By Email: Send your document(s) to as an attachment in either PDF, TIFF, or JPEG format. By Mail: [facility] Information Management, Ab7 Advance Directive Processing [address] [place], [place] [address] By In person at any [facility] location Please note: You can use the address or fax number regardless of which [facility] you utilize, and we will make [...] past who are n (more content not included)...[facility] 06-03-2024 Nuclear medicine Diagnostic study note [facility] Imaging Services [address] [place] [address] Hepatobilliary Img w/Pharm Int MR#: [id number] Acct: [id number] Name: MONISHA COHN Rep #: [id number] : 1940 F 84 From: Alejandro Tomlin MD PCP: Tressa Rosales Status: REG CLI Study:Hepatobilliary Img w/Pharm Int Date of Exam: 06/03/24 Exam# [id number] Ordering Dr: Deanna Lujan NP [facility]-C PROCEDURE: HEPATOBILLIARY IMG W/PHARM INT REASON FOR [...] SCAN AND GALLBLADDER EJECTION FRACTION. 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, 2024 8:48am CAD (coronary artery disease) chroni c March 16, 2024 8:48am Essential (primary) hypertension chronic March 16 8:48am Hyperlipidemia chronic March 162023 8:48am Non-rheumatic mitral regurgitation chronic March 16 8:48am Parkinsons disease chronic Dece 2023 8:48am [facility] Work Phone: [phone]) 515-451209-19-2024 Instructions* Patient Instructions* Em Flynn APRN.BIOLOGY LECTURER - 12/31/2023 9:49 AM EDT It was [...] directives (living will and durable power of ip attorney for healthcare): By Email: Send your document(s) to as an attachment in either PDF, TIFF, or JPEG format. By Mail: [facility] Information Management, Ab7 Advance Directive Processing [address] [place], [place] [address] By In person at any [facility] location Please note: You can use the address or fax number regardless of which [facility] you utilize, and we will make sure it is filed appropriately. Movement Disorders Medication Schedule: Medications 8AM 12PM 4PM 8PM Sinemet 25/100 2 1.5 1.5 1.5 Return at or around: 03/31/24 If there are any concerns before your next visit, please call or you can send a message through [employer]. You can also now schedule and select appointments through [employer]. Em Flynn APRN.RUPALI documented in this encounterSouthwest [facility] Health Center09-19-2024 History of Present illness Narrative* Em Flynn APRN.RUPALI - 12/31/2023 9:00 AM EDT [facility] - FOLLOW UP EVALUATION Alexandra Arreguin APRN.CNP [address] [facility] [address] [facility] [address] Dear Alexandra Arreguin APRN.CNP: I had the [...] Double vision: Please follow up with your lunchroom monitor as scheduled Interested in clinical research? Not [...] other sensations: She is seen by an instructional technology specialist for her hip. Speech/Swallowing Speech problems: [...] c) the amplitude decrements startingafter the 1st eutp-kil-atqug sequence. (She has a trigger finger) Hand [...] directives (living will and durable power of ip attorney for healthcare): By Email: Send your document(s) to as an attachment in either PDF, TIFF, or JPEG format. By Mail: [facility] Information Management, Ab7 Advance Directive Processing [address] [place], [place] [address] By In person at any [facility] location Please note: You can use the address or fax number regardless of which [facility] you utilize, and we will make sure it is filed appropriately. Updated Movement Disorders Medication Schedule: Medications 8AM 12PM 4PM 8PM Sinemet 25/100 2 1.5 1.5 1.5 Return at or around: 03/31/24 Level of service : 82110 ( 30-39 min). Time spent 39 min on the day of service, which included preparing to see the patient, hcxv-ln-ykgp patient care, completing clinical documentation, obtaining and/or reviewing separately obtained history, performing a medically appropriate examination, counseling and educating the patient/family/caregiver, and ordering medications, tests, or procedures. Em Flynn APRN.RUPALI documented in this encounterSouthwest General Health Center08-09-2024 Note* Letter - Coordinator, Mammography - 11/20/2023 10:34 AM EDT November 20, 2023 PID: [id number] Monisha Brink [address] [place] [address] Dear Ms. Cohn, We are pleased to [...] report will be kept on file at [facility] as part of your permanent medical record and are available for your continuing care. Thank you for allowing us to help in meeting your health care needs. Sincerely, Dr. George Interpreting Radiologist [facility] (Normal over 40) [facility]08-09-2024 Note* Letter - Coordinator, Mammography - 11/20/2023 10:34 AM EDT November 20, 2023 PID: [id number] Monisha Keena [address] [place] [address] Dear Ms. Cohn, We are pleased to [...] report will be kept on file at [facility] as part of your permanent medical record and are available for your continuing care. Thank you for allowing us to help in meeting your health care needs. Sincerely, Dr. George Interpreting Radiologist [facility] (Normal over 40) [facility]08-09-2024 Miscellaneous Notes* Letter - Coordinator, Mammography - 11/20/2023 10:34 AM EDT November 20, 2023 PID: [id number] Monisha Songtke [address] [place] [address] Dear Ms. Cohn, We are pleased to [...] report will be kept on file at [facility] as part of your permanent medical record and are available for your continuing care. Thank you for allowing us to help in meeting your health care needs. Sincerely, Dr. George Interpreting Radiologist [facility] (Normal over 40) * Letter - Coordinator, Mammography - 11/20/2023 10:34 AM EDT November 20, 2023 PID: [id number] Monisha Songtke [address] [place] [address] Dear Jorgito Cohn, We are pleased to [...] report will be kept on file at [facility] as part of your permanent medical record and are available for your continuing care. Thank you for allowing us to help in meeting your health care needs. Sincerely, Dr. George Interpreting Radiologist [facility] (Normal over 40) documented in this encounterSouthwest General Health Center08-09-2024 History of Present illness Narrative* Chitra Larson Tech - 11/20/2023 7:45 AM EDT Radiology Service Progress Note PATIENT NAME: Monisha PANTOJAN: [id number] DATE OF SERVICE: November 20, 2023 TIME: [...] PATIENT PRESENTS WITH AN IMPLANTABLE OR ATTACHED REGIONAL REHABILITATION DIRECTOR: No RADIOLOGY DEPARTMENT: Mammography PERIPHERAL IV DATA: Not applicable SIGNED BY: Valentin Manzanares November 20, 2023 9:23 AM documented in this encounterSouthwest General Health Center07-10-2024 Telephone encounter Note * Telephone Encounter - Rosie Cruz RN - 10/21/2023 10:01 AM EDT Received [employer] 10-20-23 at 12:28 PM. Sd [facility] is [facility] at [facility] [...] would appreciate it. The fax number is [phone]. If you have any questions you can call me back at [phone]. Thank you. Last office visit note with Stephan Sheehan PA-C & imaging report faxed to [facility] PT department. [facility]07-[facility] Miscellaneous Notes* Telephone Encounter - Rosie Cruz [...] would appreciate it. The fax number is [phone]. If you have any questions you can call me back at [phone]. Thank you. Last office visit note with Stephan Sheehan PA-C & imaging report faxed to [facility] PT department. documented in this encounterSouthwest General Health Center07-05-2024 Telephone encounter Note * Telephone Encounter - Karolina Sanders RN - 10/16/2023 2:31 PM EDT Called back number and spoke with therapist. Told her Yara's note Range of motion and rotator cuffstrengthening Claudia Wood PA-C [facility] Work Phone: [phone]) 902-569407-05-2024 Miscellaneous Notes* Telephone Encounter - Karolina Sanders [...] for the patient, please call facility at [phone], they alsoasked if we could send any office visit notes. documented in this encounterSouthwest General Health Center07-05-2024 Telephone encounter Note * Telephone Encounter - Edwina Flanagan - 10/16/2023 10:02 AM EDT Patient is staying at a facility and is going physical therapy there. They were inquiring about what specific program needs to be done for the patient, please call facility at [phone], they alsoasked if we could send any office visit notes. [facility]06-[facility] History of Present illness Narrative* Yury Jasso MD - 10/02/2023 8:54 AM EDTAssociated Order(s): Large Joint Arthro/Inj: L shoulder joint Post-Procedure Diagnose(s): Acute pain of left shoulder Images from the original note were not included. ORTHOPAEDIC SHOULDER & ELBOW SERVICE HISTORY & PHYSICAL EXAM REFERRING PROVIDER: Stephan Sheehan [address] [place], [place] [id number] CHIEF COMPLAINT: left shoulder pain PAIN EVALUATION 10/02/2023 0852 Pain Location: Shoulder-Left Description: Radiating;Aching;Sharp radiates to elbow, also to wrist Frequency: Continuous Intervention/Comfort measure: Heat;Medication;Reposition;Relaxation;Exercise tylenol, tramadol Comments: [facility] Monisha Cohn is a 83 year old [...] negative Drop arm test: negative Biceps/bambi Signs Mayes's test: positive Michael deformity: negative Speed's test: [...] REFERRING PHYSICIAN: The patient was referred to dc for consultation by the following physician. This consultation note will be sent to the following physician by either mail or electronic medical record. Stephan Sheehan [address] [place] [address] Yury Jasso MD Shoulder & Elbow Surgeon Department of Orthopaedic Surgery [facility] documented in this encounterSouthwest General Health Center06-18-2024 History of Present illness Narrative* Kelly Stewart [...] PATIENT PRESENTS WITH AN IMPLANTABLE OR ATTACHED REGIONAL REHABILITATION DIRECTOR: No RADIOLOGY DEPARTMENT: General X-ray: Exam(s) Completed: Upper Extremity X- Ray(s): Shoulder, TRUE AP/ AXILLARY / SUPRA OUTLET left PERIPHERAL IV DATA: Not applicable SIGNED BY: Valentin Siddiqui September 29, 2023 10:18 AM documented in this encounterSouthwest General Health Center06-18-2024 NoteHNO ID: [id number] Author: KELLY STEWART Tech Service: Radiology Author Type: Chemical Cell Changer Type: Progress Notes Filed: 09/29/2023 10:18 Note [...] PATIENT PRESENTS WITH AN IMPLANTABLE OR ATTACHED REGIONAL REHABILITATION DIRECTOR: No RADIOLOGY DEPARTMENT: General X-ray: Exam(s) Completed: Upper Extremity X-Ray(s): Shoulder, TRUE AP / AXILLARY / SUPRA OUTLET left PERIPHERAL IV DATA: Not applicable SIGNED BY: Valentin Siddiqui September 29, 2023 10:18 AMMer[facility] [id number] Instructions* Patient Instructions* Em Flynn APRN.BIOLOGY LECTURER - 09/29/2023 9:38 AM EDT It was [...] Double vision: Please follow up with your lunchroom monitor as scheduled Interested in clinical research? Not currently Movement Disorders Medication Schedule: Medications 8AM 12PM 4PM 8PM Sinemet 25/100 2 1.5 1.5 1.5 Return at or around: 12/30/23 If there are any concerns before your next visit, please call or you can send a message through [employer]. You can also now schedule and select appointments through [employer]. Em Flynn APRN.RUPALI documented in this encounterSouthwest General Health Center06-18-2024 History of Present illness Narrative* Em Flynn APRN.CNP - 09/29/2023 9:00 AM EDT [facility] - FOLLOW UP EVALUATION Alexandra Arreguin APRN.BIOLOGY LECTURER [address] [address] Dear Alexandra Arreguin APRN.BIOLOGY LECTURER: I had the pleasure of seeing Ms. [...] 10points or more) please discuss with your fios line installer. Hallucinations: I am hoping that the reduction in Sinemet helps these, but if it does not and they are bothering you, please let me know. Dysphagia (difficulty swallowing): I am ordering speech therapy for this and your quiet speech Double vision: Please follow up with your lunchroom monitor Left arm pain/numbness and tingling: I have [...] them. These started before she moved to [place] and after she had her heart attack while in the hospital. Apathy: no She has motivation and is trying really hard to get out of the facility and move back [facility]. Impulse control disorder: No Palliative Concerns: Caregiver burden: Spiritual concerns: No Advanced directives on file: No I offered a SW consult but she wants to wait until she moves back to [place]. Palliative services: Therapy and Exercise: Last PT [...] the amplitude decrements starting after the 1st xtsr-gax-zomwg sequence. Arm Movements Right 1-Slight. a) the [...] Double vision: Please follow up with your lunchroom monitor as scheduled Interested in clinical research? Not currently Updated Movement Disorders Medication Schedule: Medications 8AM 12PM 4PM 8PM Sinemet 25/100 2 1.5 1.5 1.5 Return at or around: 12/30/23 Level of service : 28932 ( 30-39 min). Time spent 37 min on the day of service, which included preparing to see the patient, dzfx-rr-xwbm patient care, completing clinical documentation, obtaining and/or reviewing separately obtained history, performing a medically appropriate examination, counseling and educating the patient/family/caregiver, and ordering medications, tests, or procedures. Em Flynn APRN.BIOLOGY LECTURER documented in this encounterSouthwest General Health Center06-12-2024 NoteIMPRESSION: INCOMPLETE: NEEDS ADDITIONAL IMAGING EVALUATION Probable benign nodule retroareolar region LEFT breast found using tomosynthesis today. Benign-appearing asymmetric glandular tissue upper outer aspect LEFT breast. Ultrasound correlation will be performed. LIMITED ULTRASOUND OF LEFT BREAST: 09/23/2023 RESULT: Comparison is made to exam dated: 08/13/2023 [facility]ogram [facility]. Ultrasound of was performed. Imaging was [...] screening schedule is recommended. Ajay Bullock M.D. [facility]/gi:09/23/2023 10:55:35 Multiple national specialty organizations have released breast cancer screening guidelines for women at average risk for developing breast cancer - guidelines that are based on both evidence and opinion, yet differ on when to start and how often to screen for breast cancer. With representation from Breast Imaging, Internal Medicine, Women's Health, Family Medicine, and Medical/Surgical Oncology, the [facility] has carefully reviewed the data and reached [...] providers when to stop screening mammograms. Medical Care Evaluation Specialist(s): RT Yumiko(R)(Tonie), [facility]; RT Nicole(R), [facility] OVERALL STUDY BIRADS: 2 Benign finding Data Miner: Gi Transcribe Date/Time: Sep 23 2023 9:21A Dictated by : AJAY BULLOCK MD This examination was interpreted and the report reviewed and electronically signed by: AJAY BULLOCK MD on Sep 23 2023 10:55AM [facility] [id number] History of Present illness Narrative* Tiago Mcnamara [...] PATIENT PRESENTS WITH AN IMPLANTABLE OR ATTACHED REGIONAL REHABILITATION DIRECTOR: No RADIOLOGY DEPARTMENT: Mammography PERIPHERAL IV DATA: [...] PATIENT PRESENTS WITH AN IMPLANTABLE OR ATTACHED REGIONAL REHABILITATION DIRECTOR: No RADIOLOGY DEPARTMENT: Ultrasound PERIPHERAL IV DATA: Not applicable SIGNED BY: Virginie Rios RDMS September 23, 2023 10:39 AM documented in this encounterSouthwest General Health Center06-12-2024 NoteHNO ID: [id number] Author: TIAGO MCNAMARA CT Service: Radiology Author [...] PATIENT PRESENTS WITH AN IMPLANTABLE OR ATTACHED REGIONAL REHABILITATION DIRECTOR: No RADIOLOGY DEPARTMENT: Mammography PERIPHERAL IV DATA: Not applicable SIGNED BY: RT Yumiko September 23, 2023 9:42 [facility] HospitalLzhupurx03-28-2520 NoteHNO ID: [id number] Author: VIRGINIE RIOS RDMS Service: Radiology Author Type: Switch Foreman Type: Progress Notes Filed: 09/23/2023 10:39 Note [...] PATIENT PRESENTS WITH AN IMPLANTABLE OR ATTACHED REGIONAL REHABILITATION DIRECTOR: No RADIOLOGY DEPARTMENT: Ultrasound PERIPHERAL IV DATA: Not applicable SIGNED BY: Virginie Rios RDMS September 23, 2023 10:39 [facility] [id number] Telephone encounter Note* Telephone Encounter - Mary Ann Villalobos - 09/02/2023 1:18 PM EDT Received call from Rissa at [facility] Patient would like to complete Physical Therapy on-site at the facility. Order for PT faxed to their facility via [employer]. Mary Ann Villalobos [facility]05-22-2024 Miscellaneous Notes* Telephone Encounter - Mary Ann Villalobos - 09/02/2023 1:18 PM EDT Received call from Rissa at [facility]. Patient would like to complete Physical Therapy on-site at the facility. Order for PT faxed to their facility via [employer]. Mary Ann Villalobos documented in this encounterSouthwest General Health Center05-16-2024 History of Present illness Narrative* Stephan Sheehan PA-C - 08/27/2023 1:40 PM EDT Images from the original note were not included. Stephan Sheehan PA-C [facility] [address] [place] [address] 08/27/2023 ASSESSMENT AND PLAN: Assessment : Encounter [...] today with this patient visit. This includes xzuo-bw-kvqv time, review of chart records regarding conservative care history, spine- pertinent imaging, and communication/care coordination with referring provider, problem-specific history-taking and counseling/education regarding treatment options. cc: Em Flynn [address] [address] Results of consultation to be transmitted via electronic medical record for those providers who practice within [facility] or with access to [employer] via [employer], or via letter. ######################################################################## [...] L: 5/5 Triceps R: 5/5 L: 4/5 Electrical Accessories Ii Assembler R: 5/5 L: 5/5 Interossei R: +4/5 [...] STUDIES: See discussion above documented in this encounterSouthwest General Health Center05-03-2024 Note* Letter - Coordinator, Mammography - 08/14/2023 11:00 AM EDT August 14, 2023 PID: [id number] Monisha Cohn [address] [place] [address] Dear Ms. Cohn, Your recent breast imaging [...] so).Additional Imaging cannot be self scheduled in [employer]. If you DO NOT have a healthcare provider (ie you did not have an order/prescription for your screening mammogram): Please call to schedule an appointment for your additional imaging (if you have not already done so). Additonal Imaging cannot be self scheduled in [employer]. This exam cannot be self scheduled in [employer]. You must have an order/prescription from your physician when calling to schedule your appointment. If your order/prescription is not electronic, you must bring the hard copy with you on the day of your exam Your imaging studies and reports are kept on file at [facility] as part of your permanent medical record, and are available for your continuing care. Thank you for allowing us to help in meeting your health care needs. Sincerely, Dr. Castellanos Interpreting Radiologist [facility] (Additional imaging) [facility]05-03-2024 Miscellaneous Notes* Letter - Coordinator, Mammography - 08/14/2023 11:00 AM EDT August 14, 2023 PID: [id number] Monisha Songtke [address] [place] [address] Dear Ms. oChn, Your recent breast imaging exam on 08/13/2023 showed a possible finding that requires additional imaging studies for a complete evaluation. Most such findings are probably benign (not cancer). If you have a healthcare provider who ordered/prescribed your screening mammogram: Please call to schedule an appointment for your additional imaging (if you have not already done so).Additional Imaging cannot be self scheduled in [employer]. If you DO NOT have a healthcare provider (ie you did not have an order/prescription for your screening mammogram): Please call to schedule an appointment for your additional imaging (if you have not already done so). Additonal Imaging cannot be self scheduled in [facility]. This exam cannot be self scheduled in [facility]. You must have an order/prescription from your physician when calling to schedule your appointment. If your order/prescription is not electronic, you must bring the hard copy with you on the day of your exam Your imaging studies and reports are kept on file at [facility] as part of your permanent medical record, and are available for your continuing care. Thank you for allowing us to help in meeting your health care needs. Sincerely, Dr. Castellanos Interpreting Radiologist [facility] (Additional imaging) documented in this encounterSouth[facility]05-[facility]-2024 History of Present illness Narrative* Tiago Mcnamara [...] PATIENT PRESENTS WITH AN IMPLANTABLE OR ATTACHED REGIONAL REHABILITATION DIRECTOR: No RADIOLOGY DEPARTMENT: Bone Density and Mammography PERIPHERAL IV DATA: Not applicable SIGNED BY: ANCA López August 13, 2023 2:15 PM documented in this encounterSouth[facility]05-02-2024 NoteHNO ID: [id number] Author: TIAGO MCNAMARA CT Service: Radiology Author [...] PATIENT PRESENTS WITH AN IMPLANTABLE OR ATTACHED REGIONAL REHABILITATION DIRECTOR: No RADIOLOGY DEPARTMENT: Bone Density and Mammography PERIPHERAL IV DATA: Not applicable SIGNED BY: ANCA López August 13, 2023 2:15 PMMer[facility] [id number] Telephone encounter Note* Telephone Encounter - Em Flynn APRN.BIOLOGY LECTURER - 08/03/2023 6:17 PM EDT I called and reviewed her results with her and let her know that I did communicate with a spine medicine provider who also reviewed her cervical spine MRI. He recommended that she start with spine medicine so I will have our schedulers call to set this up. She said they need to arrange this with Rissa at the [facility] as this is the individual who would drive her to her appointments. STONE Lockhart [facility]04-22-2024 Miscellaneous Notes* Telephone Encounter - Em Flynn [...] to arrange this with Rissa at the [facility] as this is the individual who would drive her to her appointments. STONE Lockhart documented in this encounterSouthwest [facility] Center03-25-2024 Instructions* Patient Instructions* Em Flynn APRN.CNP - [...] 10points or more) please discuss with your fios line installer. Date/Time BP Sitting Heart Rate Sitting BP Standing Heart Rate Standing Hallucinations: I am hoping that the reduction in Sinemet helps these, but if it does not and they are bothering you, please let me know. Dysphagia (difficulty swallowing): I am ordering speech therapy for this and your quiet speech Vision changes: Please follow up with your lunchroom monitor. Left arm pain/numbness and tingling: I have ordered a neck MRI. Movement Disorders Medication Schedule: Medications 8AM 12PM 4PM 8PM Sinemet 25/100 2 1.5 1.5 1.5 Return in about 3 months (around 10/06/2023). If there are any concerns before your next visit, please call or you can send a message through [employer]. You can also now schedule and select appointments through [employer]. Em Flynn APRN.RUPALI documented in this encounterSouth[facility] Center03-25-2024 History of Present illness Narrative* Em Flynn APRN.CNP - 07/06/2023 8:22 AM EDT [facility] - FOLLOW UP EVALUATION Alexandra Arreguin APRN.BIOLOGY LECTURER [address] [address] Dear Alexandra Arreguin APRN.CNP: I had the [...] points or more) please discuss with your fios line installer. Date/Time BP Sitting Heart Rate Sitting BP [...] still want to move back to [place]. She was discharged from physical therapy. She [...] them. These started before she moved to [place] and after shehad her heart attack while in the hospital. Apathy: no She has motivation and is trying really hard to get out of the facility. Impulse control disorder: No Palliative Concerns: Caregiver burden: Spiritual concerns: No Advanced directives on file: No I offered a SW consult but she wants to wait until she moves back to [place]. Palliative services: Therapy and Exercise: Last PT [...] the amplitude decrements starting after the 1st [id number] sequence. Arm Movements Right 1-Slight. a) the [...] 10points or more) please discuss with your fios line installer. Date/Time BP Sitting Heart Rate Sitting BP Standing Heart Rate Standing Hallucinations: I am hoping that the reduction in Sinemet helps these, but if it does not and they are bothering you, please let me know. Dysphagia (difficulty swallowing): I am ordering speech therapy for this and your quiet speech Vision changes: Please follow up with your lunchroom monitor. Left arm pain/numbness and tingling: I have ordered a neck MRI. Updated Movement Disorders Medication Schedule: Medications 8AM 12PM 4PM 8PM Sinemet 25/100 2 1.5 1.5 1.5 Level of service : 33695 (40-54 min). Time spent 45 min on the day of service, which included preparing to see the patient, [id number] patient care, completing clinical documentation, obtaining and/or reviewing separately obtained history, performing a medically appropriate examination, counseling and educating the patient/family/caregiver, and ordering medications, tests, or procedures. Em Flynn APRN.BIOLOGY LECTURER documented in this encounterSouthwest [facility] Center01-19-2024 Discharge summary Author Law Gold [facility] May 01, 2023 4:21pm Note Date/Time May 01, 2023 1 :42pm [facility] Medical Records Department [address] [place] [address] Emergency Department Summary 05/01/23 MR#: [id number] Acct: [id number] Name: MONISHA COHN Rep #:[id number] 9 : 1940 83 From: Law Longoria [...] any other injuries. Patient denies any lacerations. [facility] Medical History Atherosclerotic heart disease of chilkoot coronary artery without angina pectoris Bladder spasms [...] motor deficits and no sensory deficits noted [place] Coma Scale: document GCS findings Spontaneous Obeys [...] % (Auto) 62.2 Lymph % (Auto) 19.9 Pender % (Auto) 11.6 H Eos % (Auto) [...] Alexandra Arreguin NP Referrals: Alexandra Arreguin NP, [facility]-C [Primary Care Provider] - 5-7 Days Disposition Disposition: Home, Self Care What to do if you have Problems For any increased pain, shortness of breath, bleeding, nausea or vomiting, chestpain, or any unexpected problems, contact your Primary Care Provider. Call [facility] ([phone]) or report to the closest Emergency Room. Call 911 if necessary. 05/01/23 1621 <Electronically signed by Law Gold DO> Cosigner Signature (if applicable): CC: [facility]-C Alexandra Arreguin ~ Signed [facility] Work Phone: 1(558) 389-578510-27-2023 Discharge summary Author Darline Lundy [facility] February 06, 2023 2:09pm Note Date/Time February 06, 2023 1 2:33pm [facility] Medical Records Department [address] [place] [address] [facility] MR#: [id number] Acct: [id number] Name: MONISHA COHN Rep #:[id number] 4 : 1940 82 From: Darline Lundy MD PCP: JACQUI Ann Status:ADM IN Certification of patient admission REQUIRED AT TIME OF ADMISSION. I CERTIFY THAT POST-HOSPITAL ECF SERVICES ARE REQUIRED TO BE GIVEN ON AN IN-PATIENT BASIS BECAUSE OF THE ABOVE NAMED PATIENT'S NEED FOR MCC CARE ON A CONTINUING BASIS FOR THE [...] skin hue, Obesity who presents to the [facility] ED on 02/01/23 with history of [...] - Active Staff] - 02/18/23 Alexandra Arreguin BEATER HEAD, [facility]-C [Primary Care Provider] - Disposition Disposition (needs filled in before D/C Order can be placed): [facility] (1) Closed hip fracture Qualifiers: Encounter type: initial encounter Laterality: left Qualified Code(s): S72.002A - Fracture of unspecified part of neck of left femur, initial encounterfor closed fracture 02/06/23 1233 <Electronically signed by Darline Lundy MD> Cosigner Signature (if applicable): CC: [facility]-C Alexandra Arreguin; Dr. Jasmin Steele MD; Dr. Davian Grier DO ~ ADDENDUM by Dr. Darline Lundy MD on 02/06/23 at 1409 Addendum COREG STOPPED D/T BP STILL BEING ON LOW SIDE, PT ASYMPTOMATIC HOWEVER, NO OTHER CHANGES MADE 02/06/23 1409 <Electronically signed by Darline Lundy MD> cc: BEATER HEAD-Mariajose Arreguin; Dr. Jasmin Steele MD; Dr. Davian Grier DO ~* Signed [facility] Work Phone: [phone]) 101-237710-27-2023 Discharge summary Author Darline Lundy [facility] February 06, 2023 2:09pm Note Date/Time February 06, 2023 1 2:35pm [facility] Medical Records Department [address] [place], [place] [address] [address] Discharge Summary 02/06/23 1234 MR#: [id number] Acct: [id number] Name: MONISHA COHN Rep #:[id number] 8 : 1940 82 From: Darline Lundy MD PCP: JACQUI Ann Status:ADM IN Location: [facility] [id number] Providers Date of Admission: 02/01/23 Date of [...] skin hue, Obesity who presents to the [facility] ED on 02/01/23 with history of [...] skin hue, Obesity who presents to the [facility] ED on 02/01/23 with history of [...] % (Auto) 55.6, Lymph % (Auto) 30.5, Pender % (Auto) 10.2 H, Eos % (Auto) [...] Active Staff] - 02/18/23 Alexandra Arreguin NP, [facility]-C [Primary Care Provider] - Disposition Disposition (needs filled in before D/C Order can be placed): [facility] Charges/Coding Visit Charges Inpatient E&M: 95124 Disch Hosp >30min 02/06/23 1235 <Electronically signed [...] Arreguin; Dr. Darline Lundy MD ~* Signed [facility] Work Phone: 1(736) 305-421310-26-2023 Progress note Author Darline Lundy [facility] February 05, 2023 5:07pm Note Date/Time February 05, 2023 4 :55pm [facility] Medical Records Department [address] [place] [address] [place] [address] Progress Note - Hospitalist 02/05/23 1651 MR#: [id number] Acct: [id number] Name: MONISHA COHN Rep #:[id number] 6 : 1940 82 From: Darline Lundy MD PCP: Alexandra Arreguin, BE[facility]-C Status:ADM IN Location: [facility] JI099-4 Reason for Visit Reason for Visit: Diagnoses [...] (Auto) 67.7, Lymph % (Auto) 18.8 L, Pender % (Auto) 11.3 H, Eos % (Auto) [...] documentation, 26minutes Charges/Coding Visit Charges Inpatient E&M: 70961 Subs Hosp L1 02/05/23 1707 <Electronically signed by Darline Lundy MD> Cosigner Signature (if applicable): CC: ~ Signed [facility] Work Phone: 1(944) 836-617410-25-2023 Progress note Author Darline Lundy [facility] February 04, 2023 8:56am Note Date/Time February 04, 2023 7 :12am [facility] Medical Records Department [address] [place] [address] Progress Note - Hospitalist 02/04/23 0710 MR#: [id number] Acct: [id number] Name: MONISHA COHN Rep #:[id number] 6 : 1940 82 From: Darline Lundy MD PCP: Alexandra Arreguin, BE[facility]-C Status:ADM IN Location: MS3 RZ319-0 Reason for Visit Reason for Visit: Diagnoses [...] 70.8 H, Lymph % (Auto) 15.0 L, Pender % (Auto) 12.4 H, Eos % (Auto) [...] documentation, 40minutes Charges/Coding Visit Charges Inpatient E&M: 92789 Subs Hosp L2 02/04/23 0856 <Electronically signed by Darline Lundy MD> Cosigner Signature (if applicable): CC: ~ Signed [facility] Work Phone: 1(477) 496-221010-24-2023 Progress note Author Darline Lundy [facility] February 03, 2023 10:04am Note Date/Time February 03, 2023 7 :22am [facility] Medical Records Department [address] [place] [address] Progress Note - Hospitalist 02/03/23 0717 MR#: [id number] Acct: [id number] Name: MONISHA COHN Rep #:[id number] 2 : 1940 82 From: Darline Lundy MD PCP: JACQUI Ann Status:ADM IN [facility] Reason for Visit Reason for Visit: Diagnoses [...] 71.1 H, Lymph % (Auto) 14.6 L, Pender % (Auto) 13.2 H, Eos % (Auto) [...] documentation, 40minutes Charges/Coding Visit Charges Inpatient E&M: 76666 Subs Hosp L2 02/03/23 1004 <Electronically signed by Darline Lundy MD> Cosigner Signature (if applicable): CC: ~ Signed [facility] Work Phone: 1(255) 313-680710-24-2023 Progress note Author Jaylon Boone [facility] February 03, 2023 7:05am Note Date/Time February 03, 2023 7 :05am [facility] Medical Records Department [facility] [place] [address] Progress Note - Hospitalist 02/03/23 07 MR#: [id number] Acct: [id number] Name: MONISHA COHN Rep #:[id number] 4 : 1940 82 From: Jaylon Fontana PCP: JACQUI Ann Status:ADM IN Location: [place] [address] Hospitalist Note Since hemoglobin dropped from 9.1-5.6 after surgery. Most likely acute blood loss after surgery, postop anemia. Units PRBC type and crossmatch and transfuseslowly. Patient had a STEMI in December 2021. Aspirin hold. Plavix currentlydiscontinued but informed the attending and might resume when bleeding is stable. 02/03/23704 <Electronically signed by Jaylon Boone MD> Cosigner Signature (if applicable): CC: ~ Signed [facility] Work Phone: 1(806) 271-615010-24-2023 Progress note Author Davain Grier [facility] February 03, 2023 6:03am Note Date/Time February 03, 2023 6 :03am [facility] Medical Records Department [address] [place] [address] Progress Note - Orthopedic 02/03/23 0601 MR#: [id number] Acct: [id number] Name: MONISHA COHN Rep #:[id number] 1 : 1940 82 From: Davian beasley DO PCP: JACQUI Ann Status:ADM IN Location: [place] [address] Subjective Subjective Patient seen and examined. Pain [...] % (Auto) 62.1, Lymph % (Auto) 25.2, Pender% (Auto) 11.7 H, Eos % (Auto) 0.3, [...] Cosigner Signature (if applicable): CC: ~ Signed [facility] Work Phone: 1(169) 509-599910-24-2023 Discharge summary Author Law Gold [facility] February 03, 2023 12:29am Note Date/Time February 01, 2023 2 :21pm [facility] Medical Records Department [address] [place] [address] Emergency Department Summary 02/01/23 MR#: [id number] Acct: [id number] Name: MONISHA COHN Rep #:[id number] 7 : 1940 82 From: Niko OSMAN PCP: Alexandra Arreguin, BE[facility]-C Status:ADM IN Location: [facility]3 GN381-1 [facility] <JACQUI Cano - Last Filed: 02/01/23 15:12> History of Present Illness Chief Complaint: Fall Narrative Narrative: Patient is a 82-year-old female with history of Parkinson disease, CAD, AR who presents to the emergency department after [...] does live with her and her daughter [facility] <JACQUI Cano - Last Filed: 02/01/23 15:12> [facility] Medical History Atherosclerotic heart disease of chilkoot coronary artery without angina pectoris Bladder spasms [...] Oxygen Delivery Method Room Air Room Air [facility] <JACQUI Cano - Last Filed: 02/01/23 15:12> [facility] Lab Data Labs: Laboratory Results - last 24 hr 02/01/23 14:05 WBC 4.8 RBC 3.93 L Hgb 10.8 L Hct 35.2 L MCV 89.6 MCH 27.5 MCHC 30.7 L RDW Std Deviation 41.8 RDW Coeff of Aleena 12.6 Plt Count 255 MPV 8.7 Immature Gran % (Auto) 0.200 Neut % (Auto) 60.2 Lymph % (Auto) 28.0 Pender % (Auto) 8.9 Eos % (Auto) 1.7 [...] 14:52 EDT Reading Location ID and State: [id number] / [employer] Tel , Service support , Chest X-Ray 02/01/23 14:00 IMPRESSION: Normal x-ray examination of the chest. Electronically Signed: Chun Martinez MD at 14:53 EDT , Femur X-Ray 02/01/23 14:00 IMPRESSION: Acute distracted fracture of the intertrochanteric left femur. Electronically Signed: Chun Martinez MD at 14:55 EDT Reading Location ID and State: 6977 / [employer] Tel , Service support , Pelvis X-Ray 02/01/23 14:00 IMPRESSION: Acute distracted fracture of the intertrochanteric left femur. Electronically Signed: Chun Martinez MD at 14:54 EDT Reading Location ID and State: 1407 / [employer] Tel , Service support , Elbow X-Ray 02/01/23 15:12 IMPRESSION: Normal x-ray examination of the elbow. Electronically Signed: Chun Martinez MD at 15:29 EDT Reading Location ID and State: 9557 / [employer] Tel , Service support , EKG EKG shows a normal sinus rhythm: Attestation: I personally reviewed and interpreted this EKG as follows: Comments: Normal sinus rhythm, rate of 71 bpm, VT 150 ms, QRS duration 68 ms. No [...] Gold, DO - Last Filed: 02/01/23 15:58> [facility] Narrative Medical decision making narrative: I have [...] % (Auto) 60.2 Lymph % (Auto) 28.0 Pender % (Auto) 8.9 Eos % (Auto) 1.7 [...] 14:52 EDT Reading Location ID and State: [employer] Tel , Service support , Chest X-Ray 02/01/23 14:00 IMPRESSION: Normal x-ray examination of the chest. Electronically Signed: Chun Martinez MD at 14:53 EDT Reading Location ID and State: [employer] Tel , Service support , Femur X-Ray 02/01/23 14:00 IMPRESSION: Acute distracted fracture of the intertrochanteric left femur. Electronically Signed: Chun Martinez MD at 14:55 EDT Reading Location ID and State: [employer] Tel , Service support , Pelvis X-Ray 02/01/23 14:00 IMPRESSION: Acute distracted fracture of the intertrochanteric left femur. Electronically Signed: Chun Martinez MD at 14:54 EDT Reading Location ID and State: [employer] Tel , Service support , Elbow X-Ray 02/01/23 15:12 IMPRESSION: Normal x-ray examination of the elbow. Electronically Signed: Chun Martinez MD at 15:29 EDT Reading Location ID and State: [employer] Tel , Service support , Discharge Plan [...] your Primary Care Provider. Call [facility] ([phone]) or report to the closest Emergency Room. Call 911 if necessary. 02/02/232110 <Electronically signed by Niko LANDAC> Cosigner Signature (if applicable): 02/03/23 0029 <Electronically signed by Law Gold DO> CC: BEATER HEAD-C Alexandra Arreguin ~ Signed [facility] Work Phone: 1(920) 363-185910-23-2023 Procedure [facility] 02-02-2023 Progress note Author Darline Lundy [facility] February 02, 2023 10:59am Note Date/Time February 02, 2023 7 :44am [facility] Medical Records Department [address] [place] [address] Progress Note - Hospitalist 02/02/23 0739 MR#: [id number] Acct: [id number] Name: MONISHA COHN Rep #:[id number] 1 : 1940 82 From: Darline Lundy MD PCP: JACQUI Ann Status:ADM IN Location: [place] [address] Reason for Visit Reason for Visit: Diagnoses [...] % (Auto) 60.2, Lymph % (Auto) 28.0, Pender% (Auto) 8.9, Eos % (Auto) 1.7, Baso [...] % (Auto) 62.1, Lymph % (Auto) 25.2, Pender% (Auto) 11.7 H, Eos % (Auto) 0.3, [...] 14:52 EDT Reading Location ID and State: [employer] Tel , Service support , Chest X-Ray 02/01/23 14:00 IMPRESSION: Normal x-ray examination of the chest. Electronically Signed: Chun Martinez MD at 14:53 EDT Reading Location ID and State: [employer] Tel , Service support , Femur X-Ray 02/01/23 14:00 IMPRESSION: Acute distracted fracture of the intertrochanteric left femur. Electronically Signed: Chun Martinez MD at 14:55 EDT Reading Location ID and State: [employer] Tel , Service support , Pelvis X-Ray [...] documentation, 36minutes Charges/Coding Visit Charges Inpatient E&M: 74212 Subs Hosp L2 02/02/23 1059 <Electronically signed by Darline Lundy MD> Cosigner Signature (if applicable): CC: ~ Signed [facility] Work Phone: 1(178) 333-604010-22-2023 Progress note Author [facility] Paolo [facility] February 01, 2023 9:42pm Note Date/Time February 01, 2023 9 :42pm [facility] Medical Records Department [address] [place] [address] Progress Note - Hospitalist 02/01/232141 MR#: [id number] Acct: [id number] Name: MONISHA COHN Rep #:[id number] 1 : 1940 82 From: Jaylon Fontana PCP: Alexandra Arreguin BE[facility] HEAD-C Status:ADM IN Location: [facility] OK179-8 Hospitalist Note As per the nurse, patient changed her mind from DNRCC arrest to full code. She wants to be full code. CODE STATUS changed to full code. 02/01/232141 <Electronically signed by Jaylon Boone MD> Cosigner Signature (if applicable): CC: ~ Signed [facility] Work Phone: 1(349) 845-295810-22-2023 Consult note Author Davian Grier [facility] February 01, 2023 7:27pm Note Date/Time February 01, 2023 7 :27pm [facility] Medical Records Department [address] [place] [address] Consultation - Orthopedics 02/01/231921 MR#: [id number] Acct: [id number] Name: MONISHA COHN Rep #:[id number] 3 : 1940 82 From: Davian besaley DO PCP: SYEDA AnnC Status:ADM IN Location: MS3 MK670-6 HPI Consult Data Date of Consult: 02/01/23 HPI Narrative Reason for Consultation: Left hip fracture HPI Narrative: MONISHA COHN, is a 82 F who presents to [facility] emergency department after a mechanical [...] in the past. Denies history of VTE. [facility] Medical History (Updated 02/01/23 @ 19:[address] Davian Grier, ) Atherosclerotic heart disease of chilkoot coronary artery without angina pectoris Bladder spasms [...] % (Auto) 60.2, Lymph % (Auto) 28.0, Pender% (Auto) 8.9, Eos % (Auto) 1.7, Baso [...] 14:52 EDT Reading Location ID and State: [employer] Tel , Service support , Chest X-Ray 02/01/23 14:00 IMPRESSION: Normal x-ray examination of the chest. Electronically Signed: Chun Martinez MD at 14:53 EDT Reading Location ID and State: [employer] Tel , Service support , Femur X-Ray 02/01/23 14:00 IMPRESSION: Acute distracted fracture of the intertrochanteric left femur. Electronically Signed: Chun Martinez MD at 14:55 EDT Reading Location ID and State: [employer] Tel , Service support , Pelvis X-Ray 02/01/23 14:00 IMPRESSION: Acute distracted fracture of the intertrochanteric left femur. Electronically Signed: Chun Martinez MD at 14:54 EDT Reading Location ID and State: [employer] Tel , Service support , Elbow X-Ray [...] JACQUI Arreguin; Dr. Davian Grier DO~ Signed [facility] Work Phone: 1(374) 919-424610-22-2023 History and physical note Author Jasmin Steele [facility] February 01, 2023 4:28pm Note Date/Time February 01, 2023 3 :26pm [facility] Medical Records Department [address] [place] [address] H&P Exam - Hospitalist 02/01/23 1526 MR#: [id number] Acct: [id number] Name: MONISHA COHN Rep #:[id number] 3 : 1940 82 From: Jasmin Steele MD PCP: SYEDA AnnC Status:ADM IN Location: MS3 LH381-8 HPI - General General Date of Admission: 02/01/23 Date of Service: 02/01/23 Chief Complaint: Fall, L hip pain. HPI Narrative The patient is an 82 y/o F w/ PMHx: CAD s/p PCI, HTN, HLD, COPD, Parkinson's disease, Chronic urgency/bladder spasms following with Urology, Gout, Fibromyalgia, Hx usage silver water with chronically silver skin hue, Obesity who presents to the [facility] ED on 02/01/23 with history of [...] She notes she is able to tolerate [place] and per daughter Dilaudid low-dose. In the ED she was administered Zofran 4 mg IV x2 and morphine 4 mg IV x2 and did not have a significant reaction thus far but discussed and if any concerns arise or hives would administer medications as needed. [facility] Medical History (Updated 02/01/23 @ 16:[address] Jasmin Steele MD) Atherosclerotic heart disease of chilkoot coronary artery without angina pectoris Bladder spasms [...] % (Auto) 60.2, Lymph % (Auto) 28.0, Pender% (Auto) 8.9, Eos % (Auto) 1.7, Baso [...] 14:52 EDT Reading Location ID and State: [employer] Tel , Service support , Chest X-Ray 02/01/23 14:00 IMPRESSION: Normal x-ray examination of the chest. Electronically Signed: Chun Martinez MD at 14:53 EDT Reading Location ID and State: [employer] Tel , Service support , Femur X-Ray 02/01/23 14:00 IMPRESSION: Acute distracted fracture of the intertrochanteric left femur. Electronically Signed: Chun Martinez MD at 14:55 EDT Reading Location ID and State: [employer] [facility] [employer] Tel , Service support , Pelvis X-Ray 02/01/23 14:00 IMPRESSION: Acute distracted fracture of the intertrochanteric left femur. Electronically Signed: Chun Martinez MD at 14:54 EDT Reading Location ID and State: [email or web address] [facility] [employer] [facility] Tel , Service support , Assessment & Plan Assessment/Plan (1) Closed hip fracture: PLAN: Plan The patient is an 82 y/o F w/ PMHx: CAD s/p PCI, HTN, HLD, COPD, Parkinson's disease, Chronic urgency/bladder spasms following with Urology, Gout, Fibromyalgia, Hx usage silver water with chronically silver skin hue, Obesity who presents to the [facility] ED on 02/01/23 with history of [...] 16 minutes. Charges/Coding Visit Charges Inpatient E&M: 56876 Init Hosp L3 Procedures Hospitalists Procedures: 99846 Advncd Care Plan 30 Min 02/01/23 1628 <Electronically signed by Jasmin Steele MD> Cosigner Signature (if applicable): CC: JACQUI Arreguin; Dr. Jasmin Steele MD~ Signed [facility] Work Phone: [phone]) 621-753610-10-2023 Instructions* Patient Instructions* Em Flynn APRN.BIOLOGY LECTURER - 01/20/2023 3:48 PM EDT It was [...] points or more) please discuss with your fios line installer. Date/Time BP Sitting Heart Rate Sitting BP [...] or you can send a message through [employer]. You can also now schedule and select appointments through [employer]. Em Flynn APRN.RUPALI documented in this encounterSouthwest [facility] Center10-10-2023 History of Present illness Narrative* Em Flynn APRN.CNP - 01/20/2023 3:00 PM EDT [facility] - FOLLOW UP EVALUATION Alexandra Arreguin APRN.CNP [address] [phone] Dear Alexandra Arreguin APRN.CNP: I had the [...] exercising and going to physical therapy at [facility] and this is going well so she feels she is doing good. They are thinking about moving back to [place] as other than the above, they are [...] them. These started before she moved to [place] and after shehad her heart attack while [...] wait until she moves back to [place]. Palliative services: Therapy and Exercise: Last PT [...] c) the amplitude decrements startingafter the 1st utfb-pkq-jojqj sequence. Hand Movements Left 2-Mild. a) 3 [...] been experiencing hallucinations since she moved to [place], but she was embarrassed so she said [...] and to have informationwhen discussing with her fios line installer. She also believes she has only been taking one of the two blood pressure medications prescribed (we called her fios line installer office and verified that she is supposed [...] points or more) please discuss with your fios line installer. Date/Time BP Sitting Heart Rate Sitting BP [...] Duloxetine 20mg 2 Level of service : 49865 (40-54 min). Time spent 50 min on the day of service, which included preparing to see the patient, bvui-al-rrtw patient care, completing clinical documentation, obtaining and/or reviewing separately obtained history, performing a medically appropriate examination, counseling and educating the patient/family/caregiver, and ordering medications, tests, or procedures. Em Flynn APRN.BIOLOGY LECTURER documented in this encounterSouthwest General Health Center06-29-2023 Miscellaneous Notes* Addendum Note - Linden Flynn MD - 10/09/2022 1:32 PM EDTAddended by: LINDEN FLYNN on: 10/09/2022 01:32 PM Modules accepted: Orders documented in this encounterSouthwest General Health Center06-29-2023 Instructions* Patient Instructions* Linden Flynn MD - [...] or you can send a message through [employer]. You can also now schedule and select appointments through [employer]. Linden Flynn MD documented in this encounterSouthwest General Health Center06-29-2023 History of Present illness Narrative* Linden Flynn [...] used to. She moved here from [place]. She is blue from taking silver water [...] Achilles 2+ 2+ Plantar Downgoing Downgoing Coordination Hlwnmo-ur-owkr, rapid alternating movements and ddak-et-zaqu normal bilaterally without dysmetria. Gait Casual gait [...] c) the amplitude decrements startingafter the 1st ajid-vrk-qcmmg sequence. Hand Movements Left 3-Moderate. a) more than 5 interruptions during the movement or at least one longer arrest (freeze) in ongoing movement, b) moderate slowing, c) the amplitude decrements starting after the 1st mcjd-zib-febpt sequence. Arm Movements Right 2-Mild. a) 3 [...] Sincerely, Linden Flynn MD documented in this encounterSouthwest General Health CenterDischarge summary [facility] [address] [place] [address] Discharge Summary 01/25/25 1449 MR#: [id number] Acct: [id number] Name: MONISHA COHN Rep #:[id number] : 1940 84 From: Davian interiano MD PCP: Tressa Rosales Status:DIS IN [place] [facility] [id number] Providers Date of Admission: 01/20/25 Primary Care [...] pulmonary hypertension, CAD; withRCA stent at [facility] in [place] (2009) and subsequent inferior wall ST elevation AR s/p RCA stent with cardiogenic shock and [...] recently diagnosed COVID-19 who was transferred from [facility] she was diagnosed with an impacted Right [...] LOC with her fall. Dr. [facility] of [facility] spoke to Dr. Tijerina of the [...] risks and benefits of going to the long term and would like to go today. Hemoglobin [...] Halfway Facility Charges/Coding Visit Charges Inpatient E&M: 90455 Disch Hosp >30min 01/25/25 145 Cosigner Signature (if applicable): CC: Dr. Davian Kelly MD; Tressa Rosales~ Signed [facility] CenterDis[facility] Author Davian Kelly [facility] Note Date/Time January 25, 2025 2 :52pm [facility] Medical Records Department [address] [place] [address] Discharge Summary 01/25/25 1449 MR#: [id number] Acct: [id number] Name: MONISHA COHN Rep #:[id number] : 1940 84 From: Davian interiano MD PCP: Tressa Rosales Status:DIS IN Location: [facility] [id number] Providers Date of Admission: 01/20/25 Primary Care [...] pulmonary hypertension, CAD; withRCA stent at [facility] in [place] (2009) and subsequent inferior wall ST elevation AR s/p RCA stent with cardiogenic shock and [...] recently diagnosed COVID-19 who was transferred from [facility] after she was diagnosed with an [...] LOC with her fall. Dr. [facility] of [facility] spoke to Dr. Tijerina of the [...] risks and benefits of going to the long term and would like to go today. Hemoglobin [...] Halfway Facility Charges/Coding Visit Charges Inpatient E&M: 27616 Disch Hosp >30min 01/25/25 1452 <Electronically signed by Davian Kelly MD> Cosigner Signature (if applicable): CC: Dr. Davian Kelly MD; Tressa Rosales~ Signed [facility] Work Phone: Evaluation note* Diagnosis Onset Date Resolution Status Bladder spasms acute Edema, lower extremity acute Gout acute Hyperlipidemia acute Urgency of urination acute [facility] Work Phone: Evaluation note* Diagnosis Parkinson's disease (HCC)- Primary Paralysis agitans Argyria of skin, accidental or unintentional, sequela Depression, unspecified depression type documented in this encounter [facility]* Diagnosis Parkinson's disease without dyskinesia or fluctuating manifestations- Primary Hallucinations Orthostatic hypotension Insomnia, unspecified type documented in this encounter [facility] note* Diagnosis Onset Date Resolution Status CAD (coronary artery disease) chronic Essential (primary) hypertension chronic Hyperlipidemia chronic Non-rheumatic mitral regurgitation chronic Parkinsons disease chronic CHI (closed head injury) acu te Closed hip fracture acute Fall acute History of Parkinson's disease acute [facility] Work Phone: Evaluation note* Diagnosis Onset Date Resolution Status Closed hip fracture acute History of Parkinson's disease acute [facility] Work Phone: Evaluation note* Diagnosis Parkinson's disease without dyskinesia or fluctuating manifestations (HCC)- Primary Orthostatic hypotension Dysphagia, unspecified type Left arm pain Pain in limb Numbness and tingling in left arm Disturbance of skin sensation documented in this encounter [facility]* Diagnosis Protrusion of cervical intervertebral disc- Primary documented in this encounter [facility]* Diagnosis Acute pain of left shoulder- Primary Protrusion of cervical intervertebral disc Pain in left elbow Pain in joint, upper arm documented in this encounter [facility]* Diagnosis Chronic left shoulder pain- Primary Pain in joint, shoulder region documented in this encounter [facility]* Diagnosis Parkinson's disease without dyskinesia or fluctuating manifestations (HCC)- Primary Orthostatic hypotension Hallucinations Dysphagia, unspecified type documented in this encounter [facility]* Diagnosis Acute pain of left shoulder [facility] Chronic left shoulder pain Pain in joint, shoulder region [facility] Diagnosis Dysphagia, unspecified type- Primary Parkinson's disease without dyskinesia or fluctuating manifestations (HCC) Orthostatic hypotension documented in this encounter [facility]* Diagnosis Dysphagia, unspecified type- Primary Parkinson's disease with dyskinesia without fluctuating manifestations (HCC) Numbness and tingling of both feet Hallucinations documented in this encounter [facility]* Diagnosis Numbness and tingling of both feet documented in this encounter [facility]* Diagnosis Onset Date Resolution Status Admit Date 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 CAD (coronary artery disease) chroni c September 27, 2024 10:37am Essential (primary) hypertension chr onic September 27, 2024 10:37am Hyperlipidemia chronic September 27, 2024 10:37am Non-rheumatic mitral regurgitation chronic September 27, 2024 10:37am Parkinsons disease chronic September 112024 10:37am [facility] Work Phone: Reason for referral (narrative)* Diagnostic Procedure Only (Routine) - Pending Review Specialty Diagnoses / Procedures Referred By Contac t Referred To Contact XR IMAGING Diagnoses Chronic left shoulder pain Procedures XR SHOULDER GENERAL 3V OR MORE AP/TRUE AP/OTHER LEFT RADEX SHOULDER COMPLETE MINIMUM 2 VIEWS Claudia Manuel PA-C [address] [place] [address] [place] [address] Referral ID Status Reason Start Date Expiration Date Visits Requested Visits Authorized [id number] Pending Review Auto-Generat ed Referral 09/15/2023 10/13/2024 1 1 [facility] for referral (narrative)* Diagnostic Procedure Only (Routine) - Closed Specialty Diagnoses / Procedures Referred By Contac t Referred To Contact XR IMAGING Diagnoses Chronic left shoulder pain Procedures XR SHOULDER GENERAL 3V OR MORE AP/TRUE AP/OTHER LEFT RADEX SHOULDER COMPLETE MINIMUM 2 VIEWS Claudia Manuel PA-C [address] [place] [address] [place] [address] Referral ID Status Reason Start Date Expiration Date V isits Requested Visits Authorized [id number] Closed Auto-Generate d Referral 09/15/2023 10/13/2024 1 1 [facility] for referral (narrative)No reason for referral information availableWMary [facility] Work Phone: Requ[facility] for visit Narrative* Diagnostic Procedure Only (Routine) - Closed Specialty Diagnoses / Procedures Referred By Contac t Referred To Contact XR IMAGING Diagnoses Chronic left shoulder pain Procedures XR SHOULDER GENERAL 3V OR MORE AP/TRUE AP/OTHER LEFT RADEX SHOULDER COMPLETE MINIMUM 2 VIEWS Claudia Manuel PA-C [address] [place] [address] [place] [address] Referral ID Status Reason Start Date Expiration Date V isits Requested Visits Authorized [id number] Closed Auto-Generate d Referral 09/15/2023 10/13/2024 1 1 [facility] Chief Complaint and Reason for Visit Chief [...] December 28, 2024 12:46pm Essential (primary) hypertension [facility] 2024 12:46pm Parkinsons disease December 28, [...] December 28, 2024 12:46pm Essential (primary) hypertension [facility] 2024 12:46pm Parkinsons disease December 28, [...] Procedures PROVIDER ORDERED FOLLOW UP OFFICE/OUTPATIENT [facility] MDM 60-74 MINUTES Linden Flynn MD [address] [place] [address] Referral ID Status Reason Start Date Expiration Date Visits Requested Visits Authorized [id number] Pending Review PCP Requested Referral 10/09/2022 01/07/2023 1 1 Specialty Diagnoses / Procedures Referred By Arely t Referred To Contact [facility] Diagnoses Parkinson's disease (HCC) Procedures CONSULT TO SPEEDBOAT OPERATOR OCCUPATIONAL THERAPY EVAL HIGH COMPLEX 60 MINS Linden Flynn MD [address] [place] [address] [facility] [address] [address] Referral ID Status Reason Start Date Expiration Date Visits Requested Visits Authorized [id number] Pending Review Auto-Generat ed Referral 10/09/2022 10/09/2023 1 1 Specialty Diagnoses / Procedures Referred By Arely t Referred To Contact [facility] Diagnoses Parkinson's disease (HCC) Procedures CONSULT TO PHYSICAL THERAPY PHYSICAL THERAPY EVALUATION HIGH COMPLEX 45 MINS Linden Flynn MD [address] [place] [address] [facility] [address] [address] Referral ID Status Reason Start Date Expiration Date Visits Requested Visits Authorized [id number] Pending Review Auto-Generat ed Referral 10/09/2022 10/09/2023 1 1 Specialty Diagnoses / Procedures Referred By Contac t Referred To Contact MR IMAGING Diagnoses Spinal stenosis of cervical region Procedures MRI CERVICAL SPINE WO IVCON MRI SPINAL CANAL CERVICAL W/O CONTRAST MATRL Em Flynn, SENIOR NET SOFTWARE DEVELOPER.BIOLOGY LECTURER [address] [place] [phone] [facility] [place] [address] Referral ID Status Reason Start Date Expiration Date Visits Requested Visits Authorized [id number] Authorized Auto-Generat ed Referral 07/06/2023 08/04/2024 1 1 Referral ID Status Reason Start Date Expiration Date V isits Requested Visits Authorized [id number] Closed Auto-Generate d Referral 07/06/2023 08/04/2024 1 1 Specialty Diagnoses / Procedures Referred By Contac t Referred To Contact [facility] [place] Diagnoses Protrusion of cervical intervertebral disc Procedures CONSULT TO [facility] OFFICE/OUTPATIENT [facility] 60 MINUTES Em Flynn, SENIOR NET SOFTWARE DEVELOPER.BIOLOGY LECTURER [address] [place] [phone] Referral ID Status Reason Start Date Expiration Date Visits Requested Visits Authorized [id number] Authorized PCP Requested Referral 08/03/2023 08/02/2024 1 1 Specialty Diagnoses / Procedures Referred By Contac t Referred To Contact Orthopedics Diagnoses Acute pain of left shoulder Pain in left elbow Procedures CONSULT TO ORTHOPAEDICS OFFICE/OUTPATIENT [facility] 60 MINUTES Stephan Sheehan PA-C [address] [phone] Referral ID Status Reason Start Date Expiration Date Visits Requested Visits Authorized [id number] Authorized PCP Requested Referral 08/27/2023 08/26/2024 1 1 Specialty Diagnoses / Procedures Referred By Contac t Referred To Contact [facility] Diagnoses Protrusion of cervical intervertebral disc Acute pain of left shoulder Pain in left elbow Procedures CONSULT TO PHYSICAL THERAPY PHYSICAL THERAPY EVALUATION HIGH COMPLEX 45 MINS Stephan Sheehan PA-C [address] [phone] [facility] [place] [address] [place] [address] Referral ID Status Reason Start Date Expiration Date Visits Requested Visits Authorized [id number] Pending Review Auto-Generat ed Referral 08/27/2023 08/26/2024 1 1 Specialty Diagnoses / Procedures Referred By Contac t Referred To Contact Diagnoses Parkinson's disease without dyskinesia or fluctuating manifestations (HCC) Procedures PROVIDER ORDERED FOLLOW UP OFFICE/OUTPATIENT [facility] 60 MINUTES Em Flynn, SENIOR NET SOFTWARE DEVELOPER.BIOLOGY LECTURER [address] [address] Referral ID Status Reason Start Date Expiration Date Visits Requested Visits Authorized [id number] Authorized PCP Requested Referral 12/30/2023 09/28/2024 1 1 Specialty Diagnoses / Procedures Referred By Contac t Referred To Contact [facility] Diagnoses Parkinson's disease without dyskinesia or fluctuating manifestations (HCC) Procedures CONSULT TO PHYSICAL THERAPY PHYSICAL THERAPY EVALUATION HIGH COMPLEX 45 MINS Em Flynn, PAT.BIOLOGY LECTURER [address] [address] [facility] [address] [place] [address] Referral ID Status Reason Start Date Expiration Date Visits Requested Visits Authorized [id number] Pending Review Auto-Generat ed Referral 09/29/2023 09/28/2024 1 1 Specialty Diagnoses / Procedures Referred By Contac t Referred To Contact [facility] Diagnoses Acute pain of left shoulder Procedures CONSULT TO PHYSICAL THERAPY PHYSICAL THERAPY EVALUATION HIGH COMPLEX 45 MINS Claudia Manuel PA-C [address] [place] [address] [facility] [address] [place] [address] Referral ID Status Reason Start Date Expiration Date Visits Requested Visits Authorized [id number] Pending Review Auto-Generat ed Referral 10/02/2023 10/01/2024 1 1 Referral ID Status Reason Start Date Expiration Date Visits Requested Visits Authorized [id number] Authorized PCP Requested Referral 12/30/2024 1 1 Specialty Diagnoses / Procedures Referred By Contac t Referred To Contact [facility] Diagnoses Parkinson's disease without dyskinesia or fluctuating manifestations (HCC) Dysphagia, unspecified type Procedures CONSULT TO SPEECH THERAPY OFFICE/OUTPATIENT [facility] 60 MINUTES Em Flynn APRN.BIOLOGY LECTURER [address] [address] [facility] [place] [address] [place] [address] Referral ID Status Reason Start Date Expiration Date Visits Requested Visits Authorized [id number] Pending Review Auto-Generat ed Referral 12/31/2023 12/30/2024 1 1 Advance Directives No Advanced Directives Records Found Advance Directive Response Recorded Date/ Time Living Will No February 01 1:49pm Power of Supervisor Finishing No February 01, 2023 1:49pm Advance Directive Response Recorded Date/ Time Living Will No February 01 4:06pm Power of Supervisor Finishing No February 01, 2023 4:06pm Advance Directive Response Recorded Date/ Time Name of Medical Power of Supervisor Finishing Palmira, daughter , CHRISTY May 01, 2023 1:29pm Living Will No May 01 1:29pm Power of Supervisor Finishing Yes May 01, 2023 1:29pm Advance Directive Response Recorded Date/ Time Do you have a Healthcare Power of Supervisor Finishing? Yes January 20, 2025 1:18am Name of Medical Power of Supervisor Finishing palmira mayer January 20, 2025 1:18am Summary [...] or prosecute any alcohol or drug abuse patient.[facility] Health CenterIn the event this information is protected by the Federal Confidentiality of Alcohol and Drug Abuse Patient Records regulations: The Federal rules restrict any use of the information to criminally investigate or prosecute any alcohol or drug abuse patient.[facility] CenterIn the event this information is protected by the Federal Confidentiality of Alcohol and Drug Abuse Patient Records regulations: The Federal rules restrict any use of the information to criminally investigate or prosecute any alcohol or drug abuse patient.[facility] CenterIn the event this information is protected by the Federal Confidentiality of Alcohol and Drug Abuse Patient Records regulations: The Federal rules restrict any use of the information to criminally investigate or prosecute any alcohol or drug abuse patient.[facility] CenterIn the event this information is protected by the Federal Confidentiality of Alcohol and Drug Abuse Patient Records regulations: The Federal rules restrict any use of the information to criminally investigate or prosecute any alcohol or drug abuse patient.[facility] CenterIn the event this information is protected by the Federal Confidentiality of Alcohol and Drug Abuse Patient Records regulations: The Federal rules restrict any use of the information to criminally investigate or prosecute any alcohol or drug abuse patient.[facility] CenterIn the event this information is protected by the Federal Confidentiality of Alcohol and Drug Abuse Patient Records regulations: The Federal rules restrict any use of the information to criminally investigate or prosecute any alcohol or drug abuse patient.[facility] CenterIn the event this information is protected by the Federal Confidentiality of Alcohol and Drug Abuse Patient Records regulations: The Federal rules restrict any use of the information to criminally investigate or prosecute any alcohol or drug abuse patient.[facility] CenterIn the event this information is protected by the Federal Confidentiality of Alcohol and Drug Abuse Patient Records regulations: The Federal rules restrict any use of the information to criminally investigate or prosecute any alcohol or drug abuse patient.[facility] CenterIn the event this information is protected by the Federal Confidentiality of Alcohol and Drug Abuse Patient Records regulations: The Federal rules restrict any use of the information to criminally investigate or prosecute any alcohol or drug abuse patient.[facility] CenterIn the event this information is protected by the Federal Confidentiality of Alcohol and Drug Abuse Patient Records regulations: The Federal rules restrict any use of the information to criminally investigate or prosecute any alcohol or drug abuse patient.[facility] CenterIn the event this information is protected by the Federal Confidentiality of Alcohol and Drug Abuse Patient Records regulations: The Federal rules restrict any use of the information to criminally investigate or prosecute any alcohol or drug abuse patient.[facility] CenterIn the event this information is protected by the Federal Confidentiality of Alcohol and Drug Abuse Patient Records regulations: The Federal rules restrict any use of the information to criminally investigate or prosecute any alcohol or drug abuse patient.[facility] CenterIn the event this information is protected by the Federal Confidentiality of Alcohol and Drug Abuse Patient Records regulations: The Federal rules restrict any use of the information to criminally investigate or prosecute any alcohol or drug abuse patient.[facility] CenterIn the event this information is protected by the Federal Confidentiality of Alcohol and Drug Abuse Patient Records regulations: The Federal rules restrict any use of the information to criminally investigate or prosecute any alcohol or drug abuse patient.[facility] CenterIn the event this information is protected by the Federal Confidentiality of Alcohol and Drug Abuse Patient Records regulations: The Federal rules restrict any use of the information to criminally investigate or prosecute any alcohol or drug abuse patient.[facility] CenterIn the event this information is protected by the Federal Confidentiality of Alcohol and Drug Abuse Patient Records regulations: The Federal rules restrict any use of the information to criminally investigate or prosecute any alcohol or drug abuse patient.[facility] CenterIn the event this information is protected by the Federal Confidentiality of Alcohol and Drug Abuse Patient Records regulations: The Federal rules restrict any use of the information to criminally investigate or prosecute any alcohol or drug abuse patient.[facility] CenterIn the event this information is protected by the Federal Confidentiality of Alcohol and Drug Abuse Patient Records regulations: The Federal rules restrict any use of the information to criminally investigate or prosecute any alcohol or drug abuse patient.[facility] CenterIn the event this information is protected by the Federal Confidentiality of Alcohol and Drug Abuse Patient Records regulations: The Federal rules restrict any use of the information to criminally investigate or prosecute any alcohol or drug abuse patient.[facility] CenterIn the event this information is protected by the Federal Confidentiality of Alcohol and Drug Abuse Patient Records regulations: The Federal rules restrict any use of the information to criminally investigate or prosecute any alcohol or drug abuse patient.[facility] CenterIn the event this information is protected by the Federal Confidentiality of Alcohol and Drug Abuse Patient Records regulations: The Federal rules restrict any use of the information to criminally investigate or prosecute any alcohol or drug abuse patient.[facility] Reason for Visit (unrecogniz ed section and content) Reason Comments New Patient Evaluation Reason Comments Parkinson's Disease Specialty Diagnoses / Procedures Referred By Arely carlson Referred To Contact Diagnoses Parkinson's disease Procedures PROVIDER ORDERED FOLLOW UP OFFICE/OUTPATIENT NEW HIGH MDM 60-74 MINUTES Linden Flynn MD [address] [place] [address] Referral ID Status Reason Start Date Expiration Date V isits Requested Visits Authorized [id number] Closed PCP Requested Referral 10/09/2022 01/07/2023 1 1 Reason Comments Follow Up Pt wants to discuss left arm pain and left groin pain Parkinson's Disease Specialty Diagnoses / Procedures Referred By Arely carlson Referred To Contact MR IMAGING Diagnoses Spinal stenosis of cervical region Procedures MRI CERVICAL SPINE WO IVCON MRI SPINAL CANAL CERVICAL W/O CONTRAST Em Walker APRN.RUPALI [address] [place] [address] [place] [address] Referral ID Status Reason Start Date Expiration Date V isits Requested Visits Authorized [id number] Closed Auto-Generate d Referral 07/06/2023 08/04/2024 1 1 Reason Comments Results Reason Comments Neck Pain Neck pain Left arm p ain. Would like to discuss MRI and X-ray Results. Specialty Diagnoses / Procedures Referred By Contac t Referred To Contact [facility] [place] Diagnoses Protrusion of cervical intervertebral disc Procedures [facility] TO [facility] OFFICE/OUTPATIENT [facility] 60 MINUTES Em Flynn, PAT.BIOLOGY LECTURER [address] [place] [address] Referral ID Status Reason Start Date Expiration Date V isits Requested Visits Authorized [id number] Closed PCP Requested Referral 08/03/2023 08/02/2024 1 1 Reason Comments Parkinson's Disease Follow Up Reason Comments New Pain Specialty Diagnoses / Procedures Referred By Contac t Referred To Contact Orthopedics Diagnoses Acute pain of left shoulder Pain in left elbow Procedures CONSULT TO ORTHOPAEDICS OFFICE/OUTPATIENT [facility] 60 MINUTES Stephan Sheehan PA-C [address] [place] [address] Referral ID Status Reason Start Date Expiration Date V isits Requested Visits Authorized [id number] Closed PCP Requested Referral 08/27/2023 08/26/2024 1 1 Reason Comments Patient Update Patient Question Orders Reason Comments Optometric Aide - Other Reason Comments Radiology Mammogram Reason Comments Parkinson's Disease Specialty Diagnoses / Procedures Referred By Contac t Referred To Contact Diagnoses Parkinson's disease without dyskinesia or fluctuating manifestations (HCC) Procedures PROVIDER ORDERED FOLLOW UP OFFICE/OUTPATIENT [facility] 60 MINUTES Em Flynn, SENIOR NET SOFTWARE DEVELOPER.BIOLOGY LECTURER [address] [place] [id number] Referral ID Status Reason Start Date Expiration Date V isits Requested Visits Authorized [id number] Closed PCP Requested Referral 12/30/2023 09/28/2024 1 1 Reason Comments Parkinson's Disease Specialty Diagnoses / Procedures Referred By Contac t Referred To Contact Diagnoses Parkinson's disease without dyskinesia or fluctuating manifestations (HCC) Procedures PROVIDER ORDERED FOLLOW UP OFFICE/OUTPATIENT [facility] 60 MINUTES Em Flynn, SENIOR NET SOFTWARE DEVELOPER.BIOLOGY LECTURER [address] [place] [address] Phone: tel: fax: Referral ID Status Reason Start Date Expiration Date V isits Requested Visits Authorized [id number] Closed PCP Requested Referral 03/31/2024 12/30/2024 1 1 Reason Comments Neuropathy Specialty Diagnoses / Procedures Referred By Contac t Referred To Contact Neurology Diagnoses Numbness and tingling of both feet Numbness and tingling in both hands Procedures CONSULT TO NEUROLOGY OFFICE/OUTPATIENT [facility] 60 MINUTES Em Flynn, SENIOR NET SOFTWARE DEVELOPER.BIOLOGY LECTURER [address] [place] [address] Phone: tel: fax: Referral ID Status Reason Start Date Expiration Date V isits Requested Visits Authorized [id number] Closed PCP Requested Referral 06/28/2024 06/28/2025 1 1 Care Teams (unrecognized sec tion and content) Team Status: Active Member Role Status Dates Alexandra Arreguin BEATER HEAD, BEATER HEAD-C Primary Care Provider Active Team Status: Active Member Role Status Dates Alexandra Arreguin NP, BEATER HEAD-C Primary Care Provider Active Dr. Law Gold , DO Emergency Provider Active Dr. Jasmin Steele MD Admit Provider, Other Provider Active Dr. Davian Grier , DO Other Provider Active Dr. Darline Lundy MD Attending Provider, Other Provid er Active Team Status: Active Member Role Status Dates Alexandra Arreguin NP, BEATER HEAD-C Primary Care Provider Active Dr. Law Gold , DO Emergency Provider Active Dr. Jasmin Steele MD Admit Provider, Other Provider Active Dr. Darline Lundy MD Other Provider Active Dr. Davian Grier , DO Other Provider Active Dr. Jaylon Boone MD Attending Provider Active Team Status: Active Member Role Status Dates Alexandra Arreguin NP, BEATER HEAD-C Primary Care Provider Active Dr. Law Gold , DO Emergency Provider Active Dr. Jasmin Steele MD Admit Provider, Other Provider Active Dr. Darline Lundy MD Attending Provider, Other Provid er Active Dr. Davian Grier , DO Other Provider Active Team Status: Inactive Member Role Status Dates Alexandra Arreguin NP, BEATER HEAD-C Primary Care Provider Active Dr. Danielle Vernon MD Attending Provider, Referring Pr ovider Active Team Status: Inactive Member Role Status Dates Alexandra Arreguin BEATER HEAD, BEATER HEAD-C Primary Care Provider Active Dr. Law Gold , DO Emergency Provider Active Dr. Jasmin Steele MD Admit Provider, Other Provider Active Dr. Darline Lundy MD Attending Provider Active Dr. Davian Grier , Other Provider Active Team Status: Inactive Member Role Status Dates Alexandra Arreguin BEATER HEAD, BEATER HEAD-C Primary Care Provider Active Dr. Law Gold , DO Emergency Provider Active Reflesher Relationship Specialty Start Date End Date Alexandra Arreguin, SENIOR NET SOFTWARE DEVELOPER.BIOLOGY LECTURER [address] [place], [place] [phone] PCP - General Family Medicine 01/20/23 Team Status: Inactive Member Role Status Dates Alexandra Arreguin BEATER HEAD, BEATER HEAD-C Primary Care Provider, Referr ing Provider Active Dr. Danielle Vernon MD Attending Provider Active Team Status: Active Member Role Status Dates Alexandra Arreguin BEATER HEAD, BEATER HEAD-C Primary Care Provider Active Dr. Law Gold , DO Emergency Provider Active Dr. Jasmin Steele MD Admit Provider, Attending Prov ider Active Reflesher Relationship Specialty Start Date End Date Alexandra Arreguin, SENIOR NET SOFTWARE DEVELOPER.BIOLOGY LECTURER [address] [place] [address] PCP - General Family Medicine 01/20/23 Reflesher Relationship Specialty Start Date End Date Alexandra Arreguin, SENIOR NET SOFTWARE DEVELOPER.BIOLOGY LECTURER [address] [place] [address] PCP - General Family Medicine 01/20/23 Reflesher Relationship Specialty Start Date End Date Alexandra Arreguin, SENIOR NET SOFTWARE DEVELOPER.BIOLOGY LECTURER [address] [place], [place] [id number] PCP - General Family Medicine 01/20/23 Reflesher Relationship Specialty Start Date End Date Alexandra Arreguin, SENIOR NET SOFTWARE DEVELOPER.BIOLOGY LECTURER [address] [place] [address] PCP - General Family Medicine 01/20/23 Reflesher Relationship Specialty Start Date End Date Alexandra Arreguin, SENIOR NET SOFTWARE DEVELOPER.BIOLOGY LECTURER [address] [place], [place] [phone] PCP - General Family Medicine 01/20/23 Reflesher Relationship Specialty Start Date End Date Alexandra Arreguin, SENIOR NET SOFTWARE DEVELOPER.BIOLOGY LECTURER [address] [place], [place] [phone] PCP - General Family Medicine 01/20/23 Reflesher Relationship Specialty Start Date End Date Alexandra Arreguin, SENIOR NET SOFTWARE DEVELOPER.BIOLOGY LECTURER [address] [place] [address] PCP - General Family Medicine 01/20/23 Reflesher Relationship Specialty Start Date End Date Alexandra Arreguin, SENIOR NET SOFTWARE DEVELOPER.BIOLOGY LECTURER [address] [place] [address] PCP - General Family Medicine 01/20/23 Reflesher Relationship Specialty Start Date End Date Alexandra Arreguin, SENIOR NET SOFTWARE DEVELOPER.BIOLOGY LECTURER [address] [place] [address] PCP - General Family Medicine 01/20/23 Reflesher Relationship Specialty Start Date End Date Alexandra Arreguin, SENIOR NET SOFTWARE DEVELOPER.BIOLOGY LECTURER [address] [place] [address] PCP - General Family Medicine 01/20/23 Reflesher Relationship Specialty Start Date End Date Alexandra Arreguin, SENIOR NET SOFTWARE DEVELOPER.BIOLOGY LECTURER [address] [place], [place] [phone] PCP - General Family Medicine 01/20/23 Reflesher Relationship Specialty Start Date End Date Alexandra Arreguin, SENIOR NET SOFTWARE DEVELOPER.BIOLOGY LECTURER [address] [place], [place] [phone] PCP - General Family Medicine 01/20/23 Reflesher Relationship Specialty Start Date End Date Alexandra Arreguin, SENIOR NET SOFTWARE DEVELOPER.BIOLOGY LECTURER [address] [place], [place] [phone] PCP - General Family Medicine 01/20/23 Reflesher Relationship Specialty Start Date End Date Alexandra Arreguin, SENIOR NET SOFTWARE DEVELOPER.BIOLOGY LECTURER [address] [place], [place] [phone] PCP - General Family Medicine 01/20/23 Reflesher Relationship Specialty Start Date End Date Alexandra Arreguin, SENIOR NET SOFTWARE DEVELOPER.BIOLOGY LECTURER [address] [place], [place] [phone] PCP - General Family Medicine 01/20/23 Reflesher Relationship Specialty Start Date End Date Alexandra Arreguin, SENIOR NET SOFTWARE DEVELOPER.BIOLOGY LECTURER [address] [place], [place] [phone] PCP - General Family Medicine 01/20/23 Team Status: Active Member Role Status Dates Tressa HALL Primary Care Provider Active Team Status: Inactive Member Role Status Dates Alexandra Arreguin BEATER HEAD, BEATER HEAD-C Primary Care Provider Active Start: March 16, 2024 End: March 16, 2024 Alexandra Arreguin BEATER HEAD, BEATER HEAD-C Referring Provider Active Start: March 16, 2024 End: March 16, 2024 Dr. Danielle Vernon MD Attending Provider Active Start: March 16, 2024 End: March 16, 2024 Team Status: Inactive Member Role Status Dates Didi Lujan BEATER HEAD, BEATER HEAD-C Attending Provider Active Start: June 03, 2024 End: June 03, 2024 Didi Lujan BEATER HEAD, BEATER HEAD-C Referring Provider Active Start: June 03, 2024 End: June 03, 2024 Tressa HALL Primary Care Provider Active Start: June 03, 2024 End: June 03, 2024 Reflesher Relationship Specialty Start Date End Date Alexandra Arreguin, PAT.BIOLOGY LECTURER [address] [facility] [address] [place] [address] PCP - General Family Medicine 01/20/23 Team [...] Team Status: Active Member Role/Relationship Status Dates [facility] Bobby ISABEL Primary care physician Active Start: January 20, 2025 Dr. Danielle Vernon MD Attending physician Active Start: January 20, 2025 Dr. Danielle Vernon MD Referring Provider Active Start: January 20, 2025 Team Status: Active Member Role/Relationship Status Dates [facility] Bobby ISABEL Primary care physician Active [...] Team Status: Active Member Role/Relationship Status Dates [facility] Bobby ISABEL Primary care physician Active [...] Team Status: Active Member Role/Relationship Status Dates [facility] ISABEL Primary care physician Active Start: [...] content) DATE CREATED AUTHOR 10/02/2023 [facility] DATE CREATED AUTHOR AUTHOR'S ORGANIZ ATION 12/30/2024 [facility] DATE CREATED AUTHOR AUTHOR'S ORGANIZ ATION 01/22/2025 [facility] DATE CREATED AUTHOR AUTHOR'S ORGANIZ ATION 02/16/2025 [facility] FOR RECORDS PERTAINING TO PATIENTS WHO ARE [...] THE PRIMARY CLINICAL RECORDS. [facility] [employer] provides no warranty or guarantee of the accuracy or completeness of information in this document.
[2025-04-07 12:51] LABS: Prothrombin Time (Protime)PT. 17.0 SECONDS (11.7-14.9)
[2025-04-07 12:52] LABS: Partial Thromboplast Time 33.5 Seconds (24.1-36.2)
--- NOTE | 2025-04-07 12:58 | EDS_ITS ---
HPI History of Present Illness Chief Complaint: Shortness of Breath Narrative Narrative: Patient is 85-year-old female with past medical history of MRSA infection status post drain placement, depression, hypertension, Parkinson disease, CAD who presented to the emergency department chief complaint o shortness of breath and whole body swelling. She states that she has had a significant amount of weight gain in a very short period of time despite being on her oral diuretics she states that she was here recently and was discharged back to her facility. She also notes that she has a rash all over the place that is itchy in nature which she has not taken anything for. [facility] Medical History Infection of right prosthetic hip joint MRSA infection Anemia MRSA (methicillin resistant staph aureus) culture positive Nocturia Urge incontinence Overactive bladder Former tobacco use Depression Hypertension Fall CHI (closed head injury) Presence of stent in coronary artery (~12/22/21) Atherosclerotic heart disease of [place] coronary artery without angina pectoris ST elevation myocardial infarction (STEMI) of inferior wall (~12/22/21) Essential (primary) hypertension Parkinsons disease Urgency of urination Gout Cardiogenic shock Non-rheumatic mitral regurgitation Non-rheumatic tricuspid valve insufficiency Pulmonary hypertension Emphysema with chronic bronchitis Fibromyalgia Hyperlipidemia CAD (coronary artery disease) Bladder spasms Edema, lower extremity Myocardial infarction Home Medications ?Medication ?Instructions ?Recorded ?Last Taken ?Type acetaminophen 325 mg capsule 650 mg PO Q8H PRN fever o r pain 05/01/23 04/29/23 History atorvastatin 40 mg tablet 40 mg PO QHS hYPERLIPIDEMIA 05/01/23 04/30/23 History polyethylene glycol 3350 17 17 g PO DAILY PRN constipa tion 05/01/23 05/01/23 History gram/dose oral powder (ClearLax) psyllium husk 3.4 gram/5.4 gram 1 tbsp PO DAILY PRN CO NSTIPATION 05/01/23 04/30/23 History oral powder (Stacie-Mucil) alendronate 70 mg tablet 70 mg PO QWEEK osteoporosis 09/27/24 Unknown History duloxetine 20 mg capsule,delayed 20 mg PO QDAY DEPRESS ION 09/27/24 Unknown History release guaifenesin 100 mg/5 mL oral liquid 200 mg PO Q4H PRN cough 12/28/24 Unknown History melatonin 3 mg capsule 3 mg PO HS sleep 12/28/24 Un known History simethicone 125 mg chewable tablet 125 mg PO BID PRN a bdominal 12/28/24 Unknown History (Mylanta Gas) distention ascorbic acid (vitamin C) 500 mg 500 mg PO BID supplem ent 01/20/25 Unknown History capsule carbidopa 25 mg-levodopa 100 mg 1.5 tab PO TID kelsey on 01/20/25 Unknown History tablet (Dhivy) mirabegron 50 mg tablet,extended 50 mg PO DAILY bladde r 01/20/25 Unknown History release 24 hr (Myrbetriq) aluminum-mag hydroxide-simethicone 10 ml PO Q4H PRN in digestion, GAS, 02/28/25 Unknown History 400 mg-400 mg-40 mg/5 mL oral susp HEARTBURN, NAUSEA (Advanced Antacid-[place]) aspirin 81 mg tablet,delayed 81 mg PO BREAKFAST ANTICO AGULANT 02/28/25 Unknown History release ceramides 1,3,6-II (CeraVe Daily 1 applic topical LAURO Y DRY SKIN 02/28/25 Unknown History Moisturizing lotion) cholecalciferol (vitamin D3) 50 50 mcg PO DAILY SUPPLE MENT 02/28/25 Unknown History mcg (2,000 unit) capsule (D3-1999) cyanocobalamin (vitamin B-12) 500 500 mcg PO DAILY ANE SORAYA 02/28/25 Unknown History mcg tablet (Vitamin B-12) metoprolol tartrate 25 mg tablet 25 mg PO BID hyperten eric #0 tabs 03/05/25 Unknown Rx doxycycline hyclate 100 mg capsule 100 mg PO BID #60 c aps 03/28/25 Unknown Rx ferrous sulfate 325 mg (65 mg 325 mg PO QODAY ANEMIA 3 0 days #15 03/28/25 Unkno wn Rx iron) tablet (FeroSul) tabs vancomycin 750 mg intravenous 750 mg IV Q12H 16 days # 32 ea 03/28/25 Unknown Rx solution Allergy/AdvReac Type Severity Reaction Status Date / Time oxycodone (From Percocet) Allergy Severe Hives Verified 04/07/25 12:04 Family History Father Heart disease Surgical History History 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 alcohol intake: current alcohol intake frequency: holidays/special occasions only substance use type: does not use caffeine: Yes Type: coffee Number of servings: 2 ROS ROS ED ROS Narrative Constitutional: Denies any fevers, chills, headaches Cardiovascular: Denies chest pain Respiratory: Complains of shortness of breath as noted above Abdomen: Denies abdominal pain nausea vomit diarrhea : Denies urinary symptoms Neurological: Denies any numbness, weakness, tingling Musculoskeletal: Denies back pain complains of whole body swelling with weight gain as noted above Skin: Complains of whole body rash as noted above EXAM Physical Exam Narrative Exam Narrative: General: Patient is lying in bed rest comfortably did not appear to be in acute distress Head: atraumatic, normocephalic Eyes: PERRL bilaterally, EOMI bilaterally, no conjunctival injection noted Neck: Soft, supple, trachea midline Cardiovascular: Regular rate and rhythm Respiratory: Diminished breath sounds bilaterally Abdomen: No tenderness to palpation Extremities: Patient has 2+ pitting edema in the bilateral lower extremities as well as in the upper extremities Neurological: Patient following commands knew that she was at [facility] year is 2024 sensation grossly intact Skin: Patient has a blanching rash over her upper and lower extremities no intraoral lesions noted no petechia no purpura no sloughing of the skin noted Const Vital Signs: 04/07/25 12:00 04/07/25 12:04 04/07/25 13:04 Temperature 98.1 F 98.7 F 98.7 F Temperature Source Oral Oral Oral Pulse Rate 97 77 77 Respiratory Rate 20 H 18 18 Respiratory Effort Blood Pressure 115/54 L 115/54 L 146/60 H Blood Pressure Mean 74 74 88 Pulse Ox 98 98 98 Oxygen Delivery Method Room Air 04/07/25 13:11 04/07/25 14:00 04/07/25 14:00 Temperature 98 F Temperature Source Oral Pulse Rate 80 80 Respiratory Rate 16 22 H Respiratory Effort Blood Pressure 131/61 H 131/61 H Blood Pressure Mean 84 84 Pulse Ox 99 98 Oxygen Delivery Method Room Air Room Air 04/07/25 14:29 04/07/25 15:00 Temperature 97.8 F Temperature Source Oral Pulse Rate 82 Respiratory Rate 16 Respiratory Effort Normal Blood Pressure 139/62 H Blood Pressure Mean 87 Pulse Ox 99 Oxygen Delivery Method Room Air Room Air MDM MDM MDM Narrative Medical decision making narrative: Patient is 85-year-old female who presented to the emergency department with a chief complaint of increased weight gain in a short period time with whole body swelling and rash. On the differential diagnose includes but not limited to CHF exacerbation, allergic reaction to medication or other etiology, anemia. Once workup is obtained reviewed she will be reevaluated. Patient not be given 30 cc/kg bolus of IV fluids as there is concern for hypervolemic state. Patient's CBC was reviewed showed leukocytosis of 13,000, hemoglobin is noted to be 9 which is stable, platelet count was noted to be 418. Patient INR normal at 1.4, PT of 17. Patient odium was 137, potassium normal 4.2, creatinine 0.54. Patient troponin was noted be 31 delta troponin pending proBNP elevated to 1603 this is likely falsely low secondary to her BMI being greater than 30, TSH was noted be 4.73 with a T4 and T3 of 1.20 and 2.4 respectively. Patient's chest x- ray was reviewed by myself and by radiology which showed moderate pulmonary edema with basilar opacities not excluded with mild bilateral pleural effusions right more than left noted . Patient's EKG reviewed and showed sinus rhythm rate of 77 bpm NE 146. Patient was given 40 mg of IV Lasix At this point time will discuss case with hospitalist given her significant edema with increased weight gain and shortness of breath. Discussed case with hospitalist Dr. Steele who accept patient for admission. Patient notified is agreeable to plan all questions were answered Lab Data Labs: Laboratory Results - last 24 hr 04/07/25 04/07/25 12:37 14:30 WBC 13.4 H RBC 3.51 L Hgb 9.0 L Hct 29.5 L MCV 84.0 MCH 25.6 L MCHC 30.5 L RDW Std Deviation 53.1 H RDW Coeff of Aleena 17.2 H Plt Count 418 MPV 7.6 Immature Gran % (Auto) 0.800 Neut % (Auto) 52.8 Lymph % (Auto) 11.9 L [place] % (Auto) 7.3 Eos % (Auto) 27.0 H Baso % (Auto) 0.2 Absolute Neuts (auto) 7.1 Absolute Lymphs (auto) 1.61 Nucleated RBC % 0 PT 17.0 H INR 1.4 APTT 33.5 Sodium 137 Potassium 4.2 Chloride 106 Carbon Dioxide 23.3 Anion Gap 8 BUN 14 Creatinine 0.54 L Est GFR (MDRD) Non-Af 91 BUN/Creatinine Ratio 26.5 H Glucose 103 H Calcium 8.0 Troponin T High Sens 31 H D Troponin T Hi Sens 2 Hr 24 H NT pro BNP II 1603 TSH 4.730 H Free T4 1.20 Free T3 pg/dL 2.4 Radiography Diagnostic Testing: Clinical Impression(s) from Imaging Studies Chest X-Ray 04/07/25 13:20 IMPRESSION: Moderate pulmonary edema. Bibasilar opacities not excluded. Mild bilateral pleural effusions, right more than left. Reading Location: [facility] Discharge Plan Dx/Rx/DC Orders Clinical Impression: Edema, Shortness of breath, Hyperlipidemia, Parkinsons disease, Essential (primary) hypertension Disposition Disposition: [facility]
[2025-04-07 13:09] LABS: Immature Granulocytes Count 0.110 X10^3/uL (0.0-0.0)
--- NOTE | 2025-04-07 13:20 | RAD_ITS ---
PROCEDURE: CHEST PA AND LATERAL 04/07/2025 REASON FOR EXAM: SOB TECHNIQUE: Procedure Code: RADCXR Modality: DX Procedure: CHEST PA AND LATERAL COMPARISON: 03/24/2025 FINDINGS: Left-sided PICC line. Moderate pulmonary edema. Bibasilar opacities not excluded. Mild bilateral pleural effusions, right more than left. No pneumothorax. Mild cardiomegaly. No acute fractures. RAD/Chest PA and Lateral IMPRESSION: Moderate pulmonary edema. Bibasilar opacities not excluded. Mild bilateral pl eural effusions, right more than left. Reading Location: [facility]
[2025-04-07 13:21] LABS: Anion Gap 8 (7-18); BUN 14 mg/dL (4-19); BUN/Creat Ratio 26.5 RATIO (10-20); Calcium,Total 8.0 mg/dL (7.6-11.0); Carbon Dioxide 23.3 mmol/L (20.0-29.0); Chloride 106 mmol/L (96-106); Free T3 2.4 pg/mL (2.18-3.98); Glucose 103 mg/dL (70-99); Potassium 4.2 mmol/L (3.5-5.1); Pro- Brain NATRIURETIC PEPTIDE 1603 pg/mL (<=1800); Troponin T High Sensitivity 31 ng/L (<=14)
--- NOTE | 2025-04-07 14:59 | HP.PCM.HOS_ITS ---
HPI - General General Date of Admission: 04/07/25 Date of Service: 04/07/25 Chief Complaint: Dyspnea. HPI Narrative The patient is an 85 y/o F w/ PMHx: Hx VTE, Anxiety and Depression, Chronic normocytic anemia/Fe deficency anemia, Hx [place] associate with ingestants of the water, chronic normocytic anemia, CKD stage I versus stage II per GFR trending, Former tobacco use, Parkinson's disease, Anxiety and Depression, HTN, HLD, CAD s/p PCI, COPD, recently discharged 03/28/2025 following evaluation and treatment of a recurrent right hip infection with prosthesis with MRSA infection as well as Klebsiella growth on wound culture with nonoperative management of the wound with wound VAC and antibiotic therapy discharged initially on plan for 6 weeks of IV vancomycin and rifampin however rifampin was stopped secondary to rash therefore transition to vancomycin and Rocephin discharged on 1 week additional course of oral Augmentin for Klebsiella coverage and continue IV vancomycin with plan for once completed a long-term suppressive course of doxycycline 100 mg twice daily who now re-presents to the [facility] ED on 04/07/2025 with onset of dyspnea as well as increased significant edema and weight gain over reportedly a very short period on oral diuretic therapy in addition to complaints of a diffuse body rash which is pruritic and of unclear etiology prompting ED evaluation. Workup in ED included T98.1, heart rate 97, BP 115/54, respiratory rate 20, 98% on room air with most recent repeat vitals T98, heart rate 80, BP 131/61, respiratory rate 22, 98% on room air, CBC with WC 13.4, hemoglobin 9.0, MCV 84, platelet 418 without marked shift, coags with PT 17 otherwise unremarkable, BMP with BUN/creatinine 14/0.54, GFR 91, glucose 103, troponin initial 31 with repeat delta 2-hour pending upon requested evaluation of patient, NTproBNPII 1603, TSH 4.730, free T41.20, free T32.4, chest x-ray with moderate pulmonary edema with bibasilar opacities not excluded with mild bilateral pleural effusions right greater than left, EKG with SR with no acute evidence of ischemia. Patient weight on current presentation reported as 196 pound 12.8 ounces and was previous to this noted 03/25/2025 weight 157 pounds 6.561 ounces although weight did vacillate thus uncertain if this is accurate. In the ED patient ministered Lasix 40 mg IV x 1. PFSH Medical History Infection of right prosthetic hip joint MRSA infection Anemia MRSA (methicillin resistant staph aureus) culture positive Nocturia Urge incontinence Overactive bladder Former tobacco use Depression Hypertension Fall CHI (closed head injury) Presence of stent in coronary artery (~12/22/21) Atherosclerotic heart disease of [place] coronary artery without angina pectoris ST elevation myocardial infarction (STEMI) of inferior wall (~12/22/21) Essential (primary) hypertension Parkinsons disease Urgency of urination Gout Cardiogenic shock Non-rheumatic mitral regurgitation Non-rheumatic tricuspid valve insufficiency Pulmonary hypertension Emphysema with chronic bronchitis Fibromyalgia Hyperlipidemia CAD (coronary artery disease) Bladder spasms Edema, lower extremity Myocardial infarction Home Medications ?Medication ?Instructions ?Recorded ?Last Taken ?Type acetaminophen 325 mg capsule 650 mg PO Q8H PRN fever o r pain 05/01/23 04/29/23 History atorvastatin 40 mg tablet 40 mg PO QHS hYPERLIPIDEMIA 05/01/23 04/30/23 History polyethylene glycol 3350 17 17 g PO DAILY PRN constipa tion 05/01/23 05/01/23 History gram/dose oral powder (ClearLax) psyllium husk 3.4 gram/5.4 gram 1 tbsp PO DAILY PRN CO NSTIPATION 05/01/23 04/30/23 History oral powder (Stacie-Mucil) alendronate 70 mg tablet 70 mg PO QWEEK osteoporosis 09/27/24 Unknown History duloxetine 20 mg capsule,delayed 20 mg PO QDAY DEPRESS ION 09/27/24 Unknown History release guaifenesin 100 mg/5 mL oral liquid 200 mg PO Q4H PRN cough 12/28/24 Unknown History melatonin 3 mg capsule 3 mg PO HS sleep 12/28/24 Un known History simethicone 125 mg chewable tablet 125 mg PO BID PRN a bdominal 12/28/24 Unknown History (Mylanta Gas) distention ascorbic acid (vitamin C) 500 mg 500 mg PO BID supplem ent 01/20/25 Unknown History capsule carbidopa 25 mg-levodopa 100 mg 1.5 tab PO TID kelsey on 01/20/25 Unknown History tablet (Dhivy) mirabegron 50 mg tablet,extended 50 mg PO DAILY bladde r 01/20/25 Unknown History release 24 hr (Myrbetriq) aluminum-mag hydroxide-simethicone 10 ml PO Q4H PRN in digestion, GAS, 02/28/25 Unknown History 400 mg-400 mg-40 mg/5 mL oral susp HEARTBURN, NAUSEA (Advanced Antacid-[place]) aspirin 81 mg tablet,delayed 81 mg PO BREAKFAST ANTICO AGULANT 02/28/25 Unknown History release ceramides 1,3,6-II (CeraVe Daily 1 applic topical LAURO Y DRY SKIN 02/28/25 Unknown History Moisturizing lotion) cholecalciferol (vitamin D3) 50 50 mcg PO DAILY SUPPLE MENT 02/28/25 Unknown History mcg (2,000 unit) capsule (D3-1999) cyanocobalamin (vitamin B-12) 500 500 mcg PO DAILY ANE SORAYA 02/28/25 Unknown History mcg tablet (Vitamin B-12) metoprolol tartrate 25 mg tablet 25 mg PO BID hyperten eric #0 tabs 03/05/25 Unknown Rx doxycycline hyclate 100 mg capsule 100 mg PO BID #60 c aps 03/28/25 Unknown Rx ferrous sulfate 325 mg (65 mg 325 mg PO QODAY ANEMIA 3 0 days #15 03/28/25 Unknown Rx iron) tablet (FeroSul) tabs vancomycin 750 mg intravenous 750 mg IV Q12H 16 days # 32 ea 03/28/25 Unknown Rx solution Allergy/AdvReac Type Severity Reaction Status Date / Time oxycodone (From Percocet) Allergy Severe Hives Verified 04/07/25 12:04 Family History Father Heart disease other (Mother without marked history but young during childbirth.) Surgical History History 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 alcohol intake: current alcohol intake frequency: holidays/special occasions only substance use type: does not use caffeine: Yes Type: coffee Number of servings: 2 ROS ROS Narrative Admission Review of Systems: CONSTITUTIONAL: No weight loss, fever, chills, + weakness or fatigue. HEENT: Eyes: No visual loss, blurred vision, double vision or yellow sclerae. Ears, Nose, Throat: No hearing loss, sneezing, congestion, runny nose or sore throat. SKIN: + Right hip wound with ongoing wound therapy, recent reported diffuse pruritic rash. CARDIOVASCULAR: + Increased edema, weight gain, orthopnea. No chest pain, chest pressure or chest discomfort, palpitations, syncopal events. RESPIRATORY: + Dyspnea. No marked cough or sputum, wheezing, hemoptysis. GASTROINTESTINAL: No anorexia, nausea, vomiting or diarrhea, abdominal pain, melena, BRBPR. GENITOURINARY: No dysuria, frequency, urgency or retention. NEUROLOGICAL: No headache, dizziness, syncope, paralysis, ataxia, numbness or tingling in the extremities, focal weakness, change in bowel or bladder control, seizure. MUSCULOSKELETAL: + muscle, back pain, joint pain or stiffness. HEMATOLOGIC: + Chronic anemia, easy bleeding/bruising. LYMPHATICS: No enlarged nodes. No history of splenectomy. PSYCHIATRIC: + History of anxiety and depression. ENDOCRINOLOGIC: No reports of sweating, cold or heat intolerance. No polyuria or polydipsia. ALLERGIES: + History of hives. Patient's Goals Of Care . What would you like to achieve or improve as a result of your hospital stay?: R esolve rash, less dyspnea. Vital Signs Vital Signs Vital Signs: 04/07/25 12:00 04/07/25 12:04 04/07/25 13:04 Temperature 98.1 F 98.7 F 98.7 F Temperature Source Oral Oral Oral Pulse Rate 97 77 77 Respiratory Rate 20 H 18 18 Respiratory Effort Blood Pressure 115/54 L 115/54 L 146/60 H Blood Pressure Mean 74 74 88 Pulse Ox 98 98 98 Oxygen Delivery Method Room Air 04/07/25 13:11 04/07/25 14:00 04/07/25 14:00 Temperature 98 F Temperature Source Oral Pulse Rate 80 80 Respiratory Rate 16 22 H Respiratory Effort Blood Pressure 131/61 H 131/61 H Blood Pressure Mean 84 84 Pulse Ox 99 98 Oxygen Delivery Method Room Air Room Air 04/07/25 14:29 Temperature Temperature Source Pulse Rate Respiratory Rate Respiratory Effort Normal Blood Pressure Blood Pressure Mean Pulse Ox Oxygen Delivery Method Room Air Weight Weight: 196 lb 12.8 oz Body Mass Index (BMI) 35.9 Physical Exam Narrative Physical Examination: General: Awake, alert, oriented x 3 and cooperative, laying in the ED bed, fatigued appearing but no acute distress. Skin: Normal turgor, no icterus, no cyanosis except for significant blue/silver hue to the skin more strong in the facial and upper neck region in addition to diffuse primarily extremity blanching nonraised pruritic rash as well as evidence of intertrigo. HEENT: AT/NC, EOMI, PERRLA, MMM, no carotid bruits, mild JVD +. Lungs: Decreased bases, mildly increased RR, appropriate effort, mild rales BL bases, no ronchi or wheezing. Heart: Regular rate and rhythm; no gallop, rub audible. Abdomen: Soft, obese, NTTP, ND, mildly hyperactive BS, no appreciated HSM. Extremities: No cyanosis, no clubbing, notable upper and lower extremity edema, peripheral pulses intact, R hip w/ dressing in place from SNF with no VAC attached, requested takedown with wet->dry in the ED. Neurological: Patient awake, alert, oriented as noted, cognitive function intact; pupils equally reactive to light and accommodation, cranial nerves II- XII grossly normal, moving extremities but notable bilateral lower extremity strength decreased. Psychiatric: Affect appears mildly flat otherwise normal, no acute evidence of depressive or anxiety feelings. Results Lab / Micro Data 04/07/25 12:37 04/07/25 12:37 Labs: Laboratory Results - last 24 hr 04/07/25 12:37: WBC 13.4 H, RBC 3.51 L, Hgb 9.0 L, Hct 29.5 L, MCV 84.0, MCH 25.6 L, MCHC 30.5 L, RDW Std Deviation 53.1 H, RDW Coeff of Aleena 17.2 H, Plt Count 418, MPV 7.6, Immature Gran % (Auto) 0.800, Neut % (Auto) 52.8, Lymph % (Auto) 11.9 L, Blair % (Auto) 7.3, Eos % (Auto) 27.0 H, Baso % (Auto) 0.2, Absolute Neuts (auto) 7.1, Absolute Lymphs (auto) 1.61, Nucleated RBC % 0, PT 17.0 H, INR 1.4, APTT 33.5, Sodium 137, Potassium 4.2, Chloride 106, Carbon Dioxide 23.3, Anion Gap 8, BUN 14, Creatinine 0.54 L, Est GFR (MDRD) Non-Af 91, BUN/Creatinine Ratio 26.5 H, Glucose 103 H, Calcium 8.0, Troponin T High Sens 31 H D, NT pro BNP II 1603, TSH 4.730 H, Free T4 1.20, Free T3 pg/dL 2.4 Imaging Radiology Impression Chest X-Ray 04/07/25 13:20 IMPRESSION: Moderate pulmonary edema. Bibasilar opacities not excluded. Mild bilateral pleural effusions, right more than left. Reading Location: [facility] Assessment & Plan Assessment/Plan (1) Acute exacerbation of chronic heart failure: PLAN: Plan The patient is an 85 y/o F w/ PMHx: Hx VTE, Anxiety and Depression, Chronic normocytic anemia/Fe deficency anemia, Hx [place] associate with ingestants of the water, chronic normocytic anemia, CKD stage I versus stage II per GFR trending, Former tobacco use, Parkinson's disease, Anxiety and Depression, HTN, HLD, CAD s/p PCI, COPD, recently discharged 03/28/2025 following evaluation and treatment of a recurrent right hip infection with prosthesis with MRSA infection as well as Klebsiella growth on wound culture with nonoperative management of the wound with wound VAC and antibiotic therapy discharged initially on plan for 6 weeks of IV vancomycin and rifampin however rifampin was stopped secondary to rash therefore transition to vancomycin and Rocephin discharged on 1 week additional course of oral Augmentin for Klebsiella coverage and continue IV vancomycin with plan for once completed a long-term suppressive course of doxycycline 100 mg twice daily who now re-presents to the [facility] ED on 04/07/2025 with onset of dyspnea as well as increased significant edema and weight gain over reportedly a very short period on oral diuretic therapy in addition to complaints of a diffuse body rash which is pruritic and of unclear etiology prompting ED evaluation. #1. Acute Decompensated HF presumed preserved EF based on previous echocardiogram complicated by underlying valvular heart disease and moderate pulmonary hypertension with indeterminate cardiac enzyme of unclear significance: Patient administered IV lasix in the ED, will admit to PCU, maintain on cardiac telemetry, will obtain cardiac enzyme series, obtain serial EKGs, continue IV lasix diuresis, monitor I/Os, maintain on intake restriction, continue medical therapy, requesting magnesium level. Most recent echocardiogram 10/30/2024 with LVEF 65%, diastolic function indeterminate, mild biatrial dilatation, moderately severe TVI, RVSP 58 mmHg with moderate pulmonary hypertension thus repeat requested. PT/OT/case management consulted for discharge planning. #2. Diffuse pruritic rash of unclear etiology: Patient with previous onset of rash following rifampin which was discontinued following recent discharge, unclear if having reaction to additional medication, will at least initiate famotidine regimen as well as Solu-Medrol x 1 and continue to monitor. May need to consider ID evaluation. Refusing benadryl. #3. Recent right hip infection with prosthesis with MRSA/Klebsiella growth: Clarifying as per most recent ID discharge note patient was supposed to transition from IV vancomycin to eventually oral doxycycline and complete a short course of oral Augmentin, clarified to be certain we will continue regimen that is appropriate, wound RN consulted, SNF took the VAC when patient transitioned to the ED, will take down dressing and in the meantime until Wound RN evaluation wet->dry.. #4. Chronic COPD: Patient not on any inhaler regimen per current list, clarified to be certain, in the interim we will maintain on ATC DuoNeb therapy increased contributing to presentation complaint, PRN albuterol, HOB, IS parameters. #5. 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 #6. CKD stage I versus stage II per GFR trending: Admission BUN/creatinine 14/0.54, GFR 91 however has vacillated from the upper 80s to low 90s thus uncertain staging, baseline creatinine primarily 0.5-0.9 but has vacillated, will continue to trend CBC to further elucidate chronicity. #7. CAD: Status post previous PCI, will continue aspirin, statin, metoprolol, not on DORIAN inhibitor/ARB but clarified to be certain. #8. Parkinson's disease: Complicates presentation, maintain on fall precautions, continue Sinemet regimen, PT/OT/case management consulted for discharge planning. #9. Hypertension: Continue home regimen including metoprolol with hold parameters as needed, PRN hydralazine. #10. Hyperlipidemia: Will continue patient on statin therapy. FLP in AM. #11. Chronic normocytic anemia/iron deficiency anemia: Admission hemoglobin 9.0, MCV 84, baseline more recently noted to be primarily 7-8, stable, continue to trend, continue iron supplementation. #12. Anxiety and depression: Will continue patient home duloxetine regimen. #13. Former tobacco use: Encourage continued tobacco cessation. #14. History of VTE: Patient evaluated in the ED with a clot in the right gastrocnemius vein on venous duplex study, had been on Lovenox at the skilled facility however she had a postop hematoma therefore this was discontinued, will request repeat right lower extremity duplex ultrasound to be cautious. Certainly given dyspnea complaints could be multifactorial and may need to consider CTPA. Will reattempt initiation of therapeutic Lovenox. #15. Abnormal TSH, subclinical: Admission TSH mildly elevated 4.730 however free T4 and T3 are normal, encourage continued follow-up outpatient especially in the nonacute setting. #16. DVT prophylaxis: Will repeat trial of therapeutic Lovenox. #17. CODE status: Patient HCPOA is [place] and living will is she believes in place. Discussed CODE status at length including difference between FULL code, DNR-CCA and DNR-CC status. Following discussions about the differences in these status, requested DNR-CCA, no intubation which was clarified and confirmed. Advanced Care Planning Face to Face Time: 16 minutes. Charges/Coding Visit Charges Inpatient E&M: 88957 Init Hosp L3 Procedures Hospitalists Procedures: 50057 Advncd Care Plan 30 Min
[2025-04-07 15:11] LABS: Troponin T High Sens 2 HR 24 ng/L (<=14)
--- OUTSIDE RECORDS SUMMARY | 2025-04-07 15:33 | XMS RPT_ITS | CCD ---
Author Organization [facility] Care Team Providers Care Er Nurse Name Role Phone Unavailable Primary Care Provider Minesh Arreguin PERFECT BINDER SETTER.SCHOOL ADMISSIONS REPRESENTATIVE, Alexandra L Primary Care Provide r Rodríguez INSURANCE OFFICE SUPERVISOR, INSURANCE OFFICE SUPERVISOR-C Alexandra Primary Care Provider Rodríguez INSURANCE OFFICE SUPERVISOR, INSURANCE OFFICE SUPERVISOR-C Alexandra Referring Provider [phone] Dr. Danielle Vernon Attending Provider Dr. Law Gold Emergency Provider Dr. Jasmin Steele Admit Provider Dr. Jasmin Steele Other Provider Dr. Davian Grier Other Provider Dr. Darline Lundy Attending Provider Dr. Darline Lundy Other Provider Dr. Jaylon Boone Attending Provider Rodríguez INSURANCE OFFICE SUPERVISOR, INSURANCE OFFICE SUPERVISOR-C Alexandra Primary Care Provider Dr. Law Gold Emergency Provider Dr. Jasmin Steele Admit Provider Dr. Jasmin Steele Other Provider Dr. Davian Grier Other Provider Dr. Darline Lundy Attending Provider Dr. Darline Lundy Other Provider Dr. Jaylon Boone Attending Provider Rodríguez STEWART[employer]SCHOOL ADMISSIONS REPRESENTATIVE, Alexandra L Primary Care Provide r TAI, DIDI Referring Unavailable ARREGUIN, ALEXANDRA L Primary Care Unavailable TAI, DIDI Referring Unavailable ARREGUIN, ALEXANDRA L Primary Care Unavailable TAI, DIDI Referring Unavailable ARREGUIN, ALEXANDRA L Primary Care Unavailable PROVIDER, UNKNOWN Referring Unavailable ARREGUIN, ALEXANDRA L Primary Care Unavailable Arreguin INSURANCE OFFICE SUPERVISOR-C, Alexandra Primary Care Provider Arreguin INSURANCE OFFICE SUPERVISOR-C, Alexandra Referring Provider Saulo DEL RIO, Dr. Santos Attending Provider Tai INSURANCE OFFICE SUPERVISOR-C, Didi Attending Provider Tai INSURANCE OFFICE SUPERVISOR-C, Didi Referring Provider Bobby OLS, [facility] Primary Care Provider Shavonne vailable Tai INSURANCE OFFICE SUPERVISOR-C, Didi Attending Provider Tai INSURANCE OFFICE SUPERVISOR-C, Didi Referring Provider Bobby OLS, Tressa Primary Care Provider Shavonne vailable Bobby HALL, [facility] Referring Provider Dr. Danielle Arciniega MD Attending Provider Bobby HALL, Tressa Primary Care Provider Shavonne vailaDr. Danielle Phillips MD Referring Provider Dr. Danielle Vernon MD Other Provider Bobby HALL [facility] Primary Care Physician Un available Saulo DEL [...] Lilliana DEL RIO, Dr. Ramsey Nurse Practitioner [phone] Robin DEL RIO, Dr. Davian Richards Attending Physician Kamron DEL RIO, Dr. Gregorio Nurse Practitioner [phone] Martel DO, Dr. Rothman Attending Physician Shavonen vailable Robin DEL RIO, Dr. Davian Richards Nurse Practitioner Davian Kelly Attending Unavailable Braulio Tijerina Consulting Unavailable Bobby OLS, Tressa Primary Care Unavailab Stephan Urrutia Admitting Unavailable Stephan Martel Consulting Unavailable Darline Lundy Consulting Unavailable Davian Kelly Consulting Unavailable Tai INSURANCE OFFICE SUPERVISOR, Didi Referring Unavailable Tai INSURANCE OFFICE SUPERVISOR, Didi Attending Unavailable Bobby OLS, Tressa Primary [...] Prado Attending Unavailable SauloDanielle Attending Unavailable Rodríguez INSURANCE OFFICE SUPERVISOR, Alexandra Primary Care Unavailable Rodríguez INSURANCE OFFICE SUPERVISOR, Alexandra Referring Unavailable Danielle Vernon Attending Unavailable Bobby OLS, Tressa Referring Unavailab le Bobby OLS, Tressa Primary Care Unavailab le Bobby OLS, Tressa Referring Unavailab le Bobby OLS, Tressa Primary Care Unavailab Alexandria Prado Attending Unavailable Stephan Martel Attending Unavailable SauloDanielle Attending Unavailable Bobby OLS, Tressa Primary [facility] Unavailab le Danielle Vernon Consulting Unavailable Danielle Vernon Referring Unavailable Danielle Vernon Attending Unavailable Tressa Alan Primary [facility] Unavailab le Allergies Allergy Classification Reported Allergen(s) Allergy Type Date of Onset Reaction(s) Facility Acetaminophen / oxyCODONE (1 source) Acetaminophen / oxyCODONE; Translations: [OXYCODONE-ACETAM INOPHEN] Drug Allergy [address] [facility] Repository (20 sources) Acetaminophen / oxyCODONE; Translations: [OXYCODONE-ACETAM INOPHEN] Drug Allergy 3 Rash, Itching [facility] (8 sources) oxyCODONE Drug Allergy 3 [facility] (4 sources) ARIPiprazole; Translations: [ARIPIPRAZOLE] Drug Allergy [address] [facility] (4 sources) Haloperidol; Translations: [HALOPERIDOL] Drug Allergy [address] [facility] (4 sources) Metoclopramide; Translations: [METOCLOPRAMIDE] Drug Allergy [address] [facility] (4 sources) Prochlorperazine; Translations: [PROCHLORPERAZINE ] Drug Allergy [address] [facility] (4 sources) Promethazine; Translations: [PROMETHAZINE] Drug Allergy [address] [facility] (1 source) OLANZapine; Translations: [OLANZAPINE] Drug Allergy [address] [facility] Repository (1 source) oxyCODONE Drug Allergy 5 [facility] Repository Medications Current [...] Start: 01-20-2025 take 1 capsule by mo [facility] once daily Start: 05-01-2023 End: 03-16-2024 take 1 tablet by mouth twice daily Ascorbic Acid (Vitamin C) (C-500) 500 mg tablet Discontinued 500 mg PO TWICE A DAY May 01, 2023 1:00am March 16, 2024 10:31am Comment on above: [facility] two [facility] a day. aspirin 81 mg [...] Start: 12-29-2022 take 2 tablets by mo [facility] three times daily Carbidopa-Levodopa Active [...] Comment on above: Take 1 tablet by [facility] four times daily. Take 4 tablets daily. [...] Start: 01-20-2025 take 1 capsule by mo [facility] once daily Start: 12-28-2024 End: [...] 11:21am docusate sodium 50 mg / sennosides, snf 8.6 mg oral tablet (19 sources) Start: [...] reveals residual T wave inversion from recent [place] Coronary atherosclerosis and other heart disease (20 sources) Coronary arteriosclerosis; Translations: [Atherosclerotic heart disease of [place] coronary artery without angina pectoris] Onset: 07-31-2022 10-09-2022 Chronic Coronary atherosclerosis and other heart disease (20 sources) Stented coronary artery; Translations: [Presence of coronary angioplasty implant and graft] Onset: 12-12-2021 07-25-2022 Episodic Comment on above: PTCA/FLOYD Mid-distal RCA-PCI/FLOYD 2.23q86ys @ [facility] 12/22/21; Prox/distal RCA 2.5x30mm and 2.5x12mm @ 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 [place] Intracranial injury (20 sources) Concussion injury of [...] Interpretation Reference Range Facility MR/Beau 02-15-2025 MR/BOUBACAR [facility] [address], [address] [place] [address] OFFICE VISIT Date of Service: 02/15/25 MR#: [id number] Acct: [id number] Name: MONISHA COHN Rep #: [id number] : 1940 Provider: Dr. Alexandria Lion i, MD Age/Sex: 84/F Location: [facility] Status: Signed Intake Vital Signs 12/28/24 13:11 01/20/25 01:17 02/15/25 09:47 Height 5 ft 2 in 5 ft 2 in 5 ft 2 in Weight: 166 lb 14 oz BMI 30.5 BP 130/75 H Pulse 75 Intake Visit Reasons: 4wk MED F/U Chief Complaint: myrbetriq follow up Human Resources Manager Required: No Accompanied by: health aid Is [...] is afraid to stand on her own. 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 Normal [facility] Basic Metabolic Profile (BMP )on 01-27-2025 BUN Normal 07-30 [facility] Comment on above: Result Comment: Supa eubanks via OM: Ordered Performed By: #### L 503.0106, BTS, L500.4050, L100.0100, L501.9520 #### [facility] [address] [place], [address] BUN/CRE Normal 01-30 [facility] Comment on above: Result Comment: Supa eubanks via OM: Ordered Performed By: #### L 503.0106, BTS, L500.4050, L100.0100, [id number] #### [facility] [address] [place], [address] Calcium Normal 7.6-11.0 [facility] Comment on above: Result Comment: Canc elled via OM: MD Ordered Performed By: #### L 503.0106, BTS, L500.4050, L100.0100, [id number] #### [facility] [address] [place], [address] CL Normal 98-108 [facility] Comment on above: Result Comment: Canc elled via OM: MD Ordered Performed By: #### L 503.0106, BTS, L500.4050, L100.0100, [id number] #### [facility] [address] [place], [address] CO2 Normal 21.0-32.0 [facility] Comment on above: Result Comment: Canc elled via OM: MD Ordered Performed By: #### L 503.0106, BTS, L500.4050, L100.0100, [id number] #### [facility] [address] [place], [address] CREAT,SERUM Normal 0.70-1.20 [facility] Comment on above: Result Comment: Canc elled via OM: MD Ordered Performed By: #### L 503.0106, BTS, L500.4050, L100.0100, [id number] #### [facility] [address] [place], [address] eGFR Normal >60 [facility] Comment on above: Result Comment: Canc elled via OM: MD Ordered Performed By: #### L 503.0106, BTS, L500.4050, L100.0100, [id number] #### [facility] [address] [place], [address] GAP Normal 5-15 [facility] Comment on above: Result Comment: Canc elled via OM: MD Ordered Performed By: #### L 503.0106, BTS, L500.4050, L100.0100, [id number] #### [facility] [address] [place], [address] GLU Normal 70-99 [facility] Comment on above: Result Comment: Canc elled via OM: MD Ordered Performed By: #### L 503.0106, BTS, L500.4050, L100.0100, [id number] #### [facility] [address] [place], [address] Potassium Normal 3.3-5.1 [facility] Comment on above: Result Comment: Canc elled via OM: MD Ordered Performed By: #### L 503.0106, BTS, L500.4050, L100.0100, [id number] #### [facility] [address] [place], [address] Basic Metabolic Profile (BMP) Normal 133-145 [facility] Comment on above: Result Comment: Canc elled via OM: MD Ordered Performed By: #### L 503.0106, BTS, L500.4050, L100.0100, [id number] #### [facility] [address] [place], [address] CBC-Complete Blood Cnt No Di ffon 01-27-2025 HCT Normal 37-47 [facility] Comment on above: Result Comment: Canc elled via OM: Order cancelled - Patient discharged Performed By: #### L 503.0106, BTS, L500.4050, L100.0100, [id number] #### [facility] [address] [place], [address] HGB Normal 12.0-15.0 [facility] Comment on above: Result Comment: Canc elled via OM: Order cancelled - Patient discharged Performed By: #### L 503.0106, BTS, L500.4050, L100.0100, [id number] #### [facility] [address] [place], [address] MCH Normal 27.0-32.0 [facility] Comment on above: Result Comment: Canc elled via OM: Order cancelled - Patient discharged Performed By: #### L 503.0106, BTS, L500.4050, L100.0100, [id number] #### [facility] [address] [place], [address] MCHC Normal 32-36 [facility] Comment on above: Result Comment: Canc elled via OM: Order cancelled - Patient discharged Performed By: #### L 503.0106, BTS, L500.4050, L100.0100, L501.9520 #### [facility] [address] [place], [address] MCV Normal 81-99 [facility] Comment on above: Result Comment: Canc elled via OM: Order cancelled - Patient discharged Performed By: #### L 503.0106, BTS, L500.4050, L100.0100, L501.9520 #### [facility] [address] [place], [address] PLT Normal 150-450 [facility] Comment on above: Result Comment: Canc elled via OM: Order cancelled - Patient discharged Performed By: #### L 503.0106, BTS, L500.4050, L100.0100, L501.9520 #### [facility] [address] [place], [address] RBC Normal 4.2-5.4 [facility] Comment on above: Result Comment: Canc elled via OM: Order cancelled - Patient discharged Performed By: #### L 503.0106, BTS, L500.4050, L100.0100, L501.9520 #### [facility] [address] [place], [address] RDW CV Normal 11.6-14.6 [facility] Comment on above: Result Comment: Canc elled via OM: Order cancelled - Patient discharged Performed By: #### L 503.0106, BTS, L500.4050, L100.0100, L501.9520 #### [facility] [address] [place], [address] RDW SD Normal 35.1-43.9 [facility] Comment on above: Result Comment: Canc elled via OM: Order cancelled - Patient discharged Performed By: #### L 503.0106, BTS, L500.4050, L100.0100, L501.9520 #### [facility] [address] [place], [address] WBC Normal 4.4-11.0 [facility] Comment on above: Result Comment: Canc elled via OM: Order cancelled - Patient discharged Performed By: #### L 503.0106, BTS, L500.4050, L100.0100, L501.9520 #### [facility] [address] [place], [address] Surgical pathology reportOrd ered By: Debbie Corea on 01-27-2025 Surgical pathology study [facility] Basic Metabolic Profile (BMP )on 01-26-2025 BUN Normal 4-19 [facility] Comment on above: Result Comment: Canc elled via OM: MD Ordered Performed By: #### L 503.0106, BTS, L500.4050, L100.0100, L501.9520 #### [facility] [address] [place], [address] BUN/CRE Normal 10-20 [facility] Comment on above: Result Comment: Canc elled via OM: MD Ordered Performed By: #### L 503.0106, BTS, L500.4050, L100.0100, L501.9520 #### [facility] [address] [place], [address] Calcium Normal 7.6-11.0 [facility] Comment on above: Result Comment: Canc elled via OM: MD Ordered Performed By: #### L 503.0106, BTS, L500.4050, L100.0100, L501.9520 #### [facility] [address] [place], [address] CL Normal 98-108 [facility] Comment on above: Result Comment: Canc elled via OM: MD Ordered Performed By: #### L 503.0106, BTS, L500.4050, L100.0100, L501.9520 #### [facility] [address] [place], [address] CO2 Normal 21.0-32.0 [facility] Comment on above: Result Comment: Canc elled via OM: MD Ordered Performed By: #### L 503.0106, BTS, L500.4050, L100.0100, L501.9520 #### [facility] [address] [place], [address] CREAT,SERUM Normal 0.70-1.20 [facility] Comment on above: Result Comment: Canc elled via OM: MD Ordered Performed By: #### L 503.0106, BTS, L500.4050, L100.0100, L501.9520 #### [facility] [address] [place], [address] eGFR Normal >60 [facility] Comment on above: Result Comment: Canc elled via OM: MD Ordered Performed By: #### L 503.0106, BTS, L500.4050, L100.0100, L501.9520 #### [facility] [address] [place], [address] GAP Normal 5-15 [facility] Comment on above: Result Comment: Canc elled via OM: MD Ordered Performed By: #### L 503.0106, BTS, L500.4050, L100.0100, L501.9520 #### [facility] [address] [place], [address] GLU Normal 70-99 [facility] Comment on above: Result Comment: Canc elled via OM: MD Ordered Performed By: #### L 503.0106, BTS, L500.4050, L100.0100, L501.9520 #### [facility] [address] [place], [address] Potassium Normal 3.3-5.1 [facility] Comment on above: Result Comment: Canc elled via OM: MD Ordered Performed By: #### L 503.0106, BTS, L500.4050, L100.0100, L501.9520 #### [facility] [address] [place], [address] Basic Metabolic Profile (BMP) Normal 133-145 [facility] Comment on above: Result Comment: Canc elled via OM: MD Ordered Performed By: #### L 503.0106, BTS, L500.4050, L100.0100, L501.9520 #### [facility] [address] [place], [address] CBC-Complete Blood Cnt No Di ffon 01-26-2025 HCT Normal 37-47 [facility] Comment on above: Result Comment: Canc elled via OM: Order cancelled - Patient discharged Performed By: #### L 503.0106, BTS, L500.4050, L100.0100, L501.9520 #### [facility] [address] [place], [address] HGB Normal 12.0-15.0 [facility] Comment on above: Result Comment: Canc elled via OM: Order cancelled - Patient discharged Performed By: #### L 503.0106, BTS, L500.4050, L100.0100, L501.9520 #### [facility] [address] [place], [address] MCH Normal 27.0-32.0 [facility] Comment on above: Result Comment: Canc elled via OM: Order cancelled - Patient discharged Performed By: #### L 503.0106, BTS, L500.4050, L100.0100, L501.9520 #### [facility] [address] [place], [address] MCHC Normal 32-36 [facility] Comment on above: Result Comment: Canc elled via OM: Order cancelled - Patient discharged Performed By: #### L 503.0106, BTS, L500.4050, L100.0100, L501.9520 #### [facility] [address] [place], [address] MCV Normal 81-99 [facility] Comment on above: Result Comment: Canc elled via OM: Order cancelled - Patient discharged Performed By: #### L 503.0106, BTS, L500.4050, L100.0100, L501.9520 #### [facility] [address] [place], [address] PLT Normal 150-450 [facility] Comment on above: Result Comment: Canc elled via OM: Order cancelled - Patient discharged Performed By: #### L 503.0106, BTS, L500.4050, L100.0100, L501.9520 #### [facility] [address] [place], [address] RBC Normal 4.2-5.4 [facility] Comment on above: Result Comment: Canc elled via OM: Order cancelled - Patient discharged Performed By: #### L 503.0106, BTS, L500.4050, L100.0100, L501.9520 #### [facility] [address] [place], [address] RDW CV Normal 11.6-14.6 [facility] Comment on above: Result Comment: Canc elled via OM: Order cancelled - Patient discharged Performed By: #### L 503.0106, BTS, L500.4050, L100.0100, L501.9520 #### [facility] [address] [place], [address] RDW SD Normal 35.1-43.9 [facility] Comment on above: Result Comment: Canc elled via OM: Order cancelled - Patient discharged Performed By: #### L 503.0106, BTS, L500.4050, L100.0100, L501.9520 #### [facility] [address] [place], [address] WBC Normal 4.4-11.0 [facility] Comment on above: Result Comment: Canc elled via OM: Order cancelled - Patient discharged Performed By: #### L 503.0106, BTS, L500.4050, L100.0100, L501.9520 #### [facility] [address] [place], [address] Basic Metabolic Profile (BMP )on 01-25-2025 BUN Normal -19 [facility] Comment on above: Result Comment: Canc elled via OM: MD Ordered Performed By: #### L 500.2500, L100.0500 #### [facility] [address] [place], [address] BUN/CRE Normal - [facility] Comment on above: Result Comment: Canc elled via OM: MD Ordered Performed By: #### L 500.2500, L100.0500 #### [facility] [address] [place], [address] Calcium Normal 7.6-11.0 [facility] Comment on above: Result Comment: Canc elled via OM: MD Ordered Performed By: #### L 500.2500, L100.0500 #### [facility] [address] [place], [address] CL Normal 98-108 [facility] Comment on above: Result Comment: Canc elled via OM: MD Ordered Performed By: #### L 500.2500, L100.0500 #### [facility] [address] [place], [address] CO2 Normal 21.0-32.0 [facility] Comment on above: Result Comment: Canc elled via OM: MD Ordered Performed By: #### L 500.2500, L100.0500 #### [facility] [address] [place], [address] CREAT,SERUM Normal 0.70-1.20 [facility] Comment on above: Result Comment: Canc elled via OM: MD Ordered Performed By: #### L 500.2500, L100.0500 #### [facility] [address] [place], [address] eGFR Normal >60 [facility] Comment on above: Result Comment: Canc elled via OM: MD Ordered Performed By: #### L 500.2500, L100.0500 #### [facility] [address] [place], [address] GAP Normal 5-15 [facility] Comment on above: Result Comment: Canc elled via OM: MD Ordered Performed By: #### L 500.2500, L100.0500 #### [facility] [address] [place], [address] GLU Normal 70-99 [facility] Comment on above: Result Comment: Canc elled via OM: MD Ordered Performed By: #### L 500.2500, L100.0500 #### [facility] [address] [place], [address] Potassium Normal 3.3-5.1 [facility] Comment on above: Result Comment: Canc elled via OM: MD Ordered Performed By: #### L 500.2500, L100.0500 #### [facility] [address] [place], [address] Basic Metabolic Profile (BMP) Normal 133-145 [facility] Comment on above: Result Comment: Canc elled via OM: MD Ordered Performed By: #### L 500.2500, L100.0500 #### [facility] [address] [place], [address] CBC-Complete Blood Cnt No Di ffon 01-25-2025 Erythrocyte distribution width (RBC) [Ratio] 13.2 % Normal 11.6-14.6 [facility] Comment on above: Performed By: #### L 500.2500, L100.0500 #### [facility] [address] [place], [address] Hematocrit (Bld) [Volume fraction] 24.9 % Low 37-47 [facility] Comment on above: Performed By: #### L 500.2500, L100.0500 #### [facility] [address] [place], [address] Hemoglobin (Bld) [Mass/Vol] 8.4 g/dL Low 12.0-15.0 [facility] Comment on above: Performed By: #### L 500.2500, L100.0500 #### [facility] [address] [place], [address] MCH (RBC) [Entitic mass] 27.9 pg Normal 27.0-32.0 [facility] Comment on above: Performed By: #### L 500.2500, L100.0500 #### [facility] [address] [place], [address] MCHC (RBC) [Mass/Vol] 33.7 g/dL Normal 32-36 [facility] Comment on above: Performed By: #### L 500.2500, L100.0500 #### [facility] [address] [place], [address] MCV (RBC) [Entitic vol] 82.7 fL Normal 81-99 [facility] Comment on above: Performed By: #### L 500.2500, L100.0500 #### [facility] [address] [place], [address] Platelet mean volume (Bld) [Entitic vol] 8.7 fL Normal 6.2-12.0 [facility] Comment on above: Performed By: #### L 500.2500, L100.0500 #### [facility] [address] [place], [address] Platelets (Bld) [#/Vol] 362 10*3/uL Normal 150-450 [facility] Comment on above: Performed By: #### L 500.2500, L100.0500 #### [facility] [address] [place], [address] RBC (Bld) [#/Vol] 3.01 10*6/uL Low 4.2-5.4 [facility] Comment on above: Performed By: #### L 500.2500, L100.0500 #### [facility] [address] [place], [address] RDW SD 40.2 fl Normal 35.1-43.9 [facility] Comment on above: Performed By: #### L 500.2500, L100.0500 #### [facility] [address] [place], [address] WBC (Bld) [#/Vol] 8.6 10*3/uL Normal 4.4-11.0 [facility] Comment on above: Performed By: #### L 500.2500, L100.0500 #### [facility] [address] [place], [address] COVID 19 AG RAPID (AUGUSTIN Carlson)on 01-25-2025 SARS-CoV-2 (COVID-19) RNA DESHAUN+probe Ql (Unsp spec) SARS-CoV-2 (COVID 19) Negative RAPID METHOD BinaxNow COVID19 Ag Card Normal [facility] Comment on above: Performed By: #### L 503.0106, BTS, L500.4050, L100.0100, L501.9520 #### [facility] [address] [place], [place], [id number] COVID-19 virus antigen assay Ordered By: Davian Kelly on 01-25-2025 SARS-CoV-2 (COVID-19) Ag IA.rapid Ql (Resp) [facility] Erythrocyte distribution wid th ratioOrdered By: Darline Lundy on 01-25-2025 Erythrocyte distribution width (RBC) [Ratio] 13.2 % 11.6-14.6 [facility] Erythrocyte distribution wid th standard deviationOrdered By: Darline Lundy on 01-25-2025 Erythrocyte distribution width (RBC) [Ratio] 40.2 fl 35.1-43.9 [facility] Hematocrit Auto (Bld) [Volum e fraction]Ordered By: Darline Lundy on 01-25-2025 Hematocrit (Bld) [Volume fraction] 24.9 % Low 37-47 [facility] Hemoglobin measurementOrdere d By: Darline Lundy on 01-25-2025 Hemoglobin (Bld) [Mass/Vol] 8.4 g/dL Low 12.0-15.0 [facility] MCV (mean corpuscular volume ) determinationOrdered By: Darline Lundy on 01-25-2025 MCV (RBC) [Entitic vol] 82.7 fL 81-99 [facility] Mean corpuscular hemoglobin (MCH) determinationOrdered By: Darline Lundy on 01-25-2025 MCH (RBC) [Entitic mass] 27.9 pg 27.0-32.0 [facility] Mean corpuscular hemoglobin concentration (MCHC) determinationOrdered By: Darline Lundy on 01-25-2025 MCHC (RBC) [Mass/Vol] 33.7 g/dL 32-36 [facility] Mean platelet volume determi nationOrdered By: Darline Lundy on 01-25-2025 Platelet mean volume (Bld) [Entitic vol] 8.7 fL 6.2-12.0 [facility] Platelet countOrdered By: Luiz Lundy on 01-25-2025 Platelets (Bld) [#/Vol] 362 10*3/uL 150-450 [facility] RBC Auto (Bld) [#/Vol]Ordere d By: Darline Lundy on 01-25-2025 RBC (Bld) [#/Vol] 3.01 10*6/uL Low 4.2-5.4 [facility] White blood cell (WBC) count Ordered By: Darline Lundy on 01-25-2025 WBC (Bld) [#/Vol] 8.6 10*3/uL 4.4-11.0 [facility] Anion gap in Serum or Plasma Ordered By: Darline Lundy on 01-24-2025 Anion gap [Moles/Vol] 9 mmol/L 08-25 [facility] BUN/creatinine ratioOrdered By: Darline Lundy on 01-24-2025 Urea nitrogen/Creatinine [Mass ratio] 28.0 mg/mg High 01-30 [facility] Basic Metabolic Profile (BMP )on 01-24-2025 BUN/CRE 28.0 RATIO High 01-30 [facility] Comment on above: Performed By: #### L 503.0106, BTS, L500.4050, L100.0100, L501.9520 #### [facility] [address] [place], [address] Calcium [Mass/Vol] 8.4 mg/dL Normal 7.6-11.0 [facility] Comment on above: Performed By: #### L 503.0106, BTS, L500.4050, L100.0100, L501.9520 #### [facility] [address] [place], [address] Chloride [Moles/Vol] 103 mmol/L Normal 98-108 [facility] Comment on above: Performed By: #### L 503.0106, BTS, L500.4050, L100.0100, L501.9520 #### [facility] [address] [place], [address] CO2 [Moles/Vol] 24.5 mmol/L Normal 21.0-32.0 [facility] Comment on above: Performed By: #### L 503.0106, BTS, L500.4050, L100.0100, L501.9520 #### [facility] [address] [place], [address] Creatinine [Mass/Vol] 0.68 mg/dL Low 0.70-1.20 [facility] Comment on above: Performed By: #### L 503.0106, BTS, L500.4050, L100.0100, L501.9520 #### [facility] [address] [place], [address] ECRCL 49.12 ml/min Low 50-250 [facility] Comment on above: Performed By: #### L 503.0106, BTS, L500.4050, L100.0100, [id number] #### [facility] [address] [place], [address] GAP 9 Normal 5-15 [facility] Comment on above: Performed By: #### L 503.0106, BTS, L500.4050, L100.0100, L501.9520 #### [facility] [address] [place], [address] GFR/1.73 sq M.predicted among non-blacks MDRD (S/P/Bld) [Vol rate/Area] 86 mL/min/{1.73_m2} Normal >60 [facility] Comment on above: Result Comment: mL/m in/1.73m2 CKD-EPI Creatinine Equation (2020) Performed By: #### L 503.0106, BTS, L500.4050, L100.0100, L501.9520 #### [facility] [address] [place], [address] Glucose [Mass/Vol] 97 mg/dL Normal 70-99 [facility] Comment on above: Performed By: #### L 503.0106, BTS, L500.4050, L100.0100, L501.9520 #### [facility] [address] [place], [address] Potassium [Moles/Vol] 3.9 mmol/L Normal 3.3-5.1 [facility] Comment on above: Performed By: #### L 503.0106, BTS, L500.4050, L100.0100, L501.9520 #### [facility] [address] [place], [address] Sodium [Moles/Vol] 136 mmol/L Normal 133-145 [facility] Comment on above: Performed By: #### L 503.0106, BTS, L500.4050, L100.0100, L501.9520 #### [facility] [address] [place], [address] Urea nitrogen [Mass/Vol] 19 mg/dL Normal 4-19 [facility] Comment on above: Performed By: #### L 503.0106, BTS, L500.4050, L100.0100, L501.9520 #### [facility] [address] [place], [address] CBC-Complete Blood Cnt No Di ffon 01-24-2025 Erythrocyte distribution width (RBC) [Ratio] 13.2 % Normal 11.6-14.6 [facility] Comment on above: Performed By: #### L 503.0106, BTS, L500.4050, L100.0100, L501.9520 #### [facility] [address] [place], [address] Hematocrit (Bld) [Volume fraction] 25.0 % Low 37-47 [facility] Comment on above: Performed By: #### L 503.0106, BTS, L500.4050, L100.0100, L501.9520 #### [facility] [address] [place], [address] Hemoglobin (Bld) [Mass/Vol] 8.2 g/dL Low 12.0-15.0 [facility] Comment on above: Performed By: #### L 503.0106, BTS, L500.4050, L100.0100, L501.9520 #### [facility] [address] [place], [address] MCH (RBC) [Entitic mass] 27.5 pg Normal 27.0-32.0 [facility] Comment on above: Performed By: #### L 503.0106, BTS, L500.4050, L100.0100, L501.9520 #### [facility] [address] [place], [address] MCHC (RBC) [Mass/Vol] 32.8 g/dL Normal 32-36 [facility] Comment on above: Performed By: #### L 503.0106, BTS, L500.4050, L100.0100, L501.9520 #### [facility] [address] [place], [address] MCV (RBC) [Entitic vol] 83.9 fL Normal 81-99 [facility] Comment on above: Performed By: #### L 503.0106, BTS, L500.4050, L100.0100, L501.9520 #### [facility] [address] [place], [address] Platelet mean volume (Bld) [Entitic vol] 9.1 fL Normal 6.2-12.0 [facility] Comment on above: Performed By: #### L 503.0106, BTS, L500.4050, L100.0100, L501.9520 #### [facility] [address] [place], [address] Platelets (Bld) [#/Vol] 308 10*3/uL Normal 150-450 [facility] Comment on above: Performed By: #### L 503.0106, BTS, L500.4050, L100.0100, L501.9520 #### [facility] [address] [place], [address] RBC (Bld) [#/Vol] 2.98 10*6/uL Low 4.2-5.4 [facility] Comment on above: Performed By: #### L 503.0106, BTS, L500.4050, L100.0100, L501.9520 #### [facility] [address] [place], [address] RDW SD 40.6 fl Normal 35.1-43.9 [facility] Comment on above: Performed By: #### L 503.0106, BTS, L500.4050, L100.0100, L501.9520 #### [facility] [address] [place], [address] WBC (Bld) [#/Vol] 8.6 10*3/uL Normal 4.4-11.0 [facility] Comment on above: Performed By: #### L 503.0106, BTS, L500.4050, L100.0100, L501.9520 #### [facility] [address] [place], [address] Carbon dioxide, total [Moles /volume] in Central venous bloodOrdered By: Darline Lundy on 01-24-2025 CO2 [Moles/Vol] 24.5 mmol/L 21.0-32.0 [facility] Chloride assayOrdered By: Luiz Lundy on 01-24-2025 Chloride [Moles/Vol] 103 mmol/L 98-108 [facility] Glomerular filtration rate ( GFR) estimation/1.73 sq m using serum, plasma, or whole bOrdered By: Darline Lundy on 01-24-2025 GFR/1.73 sq M.predicted among non-blacks MDRD (S/P/Bld) [Vol rate/Area] 86 mL/min/{1.73_m2} >60 [facility] Comment on above: mL/min/1.73m2 CKD-EP I Creatinine Equation (2020) HH, Hemoglobin AND Hematocri ton 01-24-2025 Hematocrit (Bld) [Volume fraction] 25.1 % Low 37-47 [facility] Comment on above: Performed By: #### L 503.0106, BTS, L500.4050, L100.0100, L501.9520 #### [facility] [address], [address] Hemoglobin (Bld) [Mass/Vol] 8.5 g/dL Low 12.0-15.0 [facility] Comment on above: Performed By: #### L 503.0106, BTS, L500.4050, L100.0100, L501.9520 #### [facility] [address] [facility] [place], [address] Potassium measurement (mass/ volume)Ordered By: Darline Lundy on 01-24-2025 Potassium (Unsp spec) [Mass/Vol] 3.9 mmol/L 3.3-5.1 [facility] Serum creatinine measurement (mass/volume)Ordered By: Darline Lundy on 01-24-2025 Creatinine [Mass/Vol] 0.68 mg/dL Low 0.70-1.20 [facility] Serum glucose measurement (m ass/volume)Ordered By: Darline Lundy on 01-24-2025 Glucose [Mass/Vol] 97 mg/dL 70-99 [facility] Serum or plasma calcium taylor urement (mass/volume)Ordered By: Darline Lundy on 01-24-2025 Calcium [Mass/Vol] 8.4 mg/dL 7.6-11.0 [facility] Serum or plasma urea nitroge n measurement (mass/volume)Ordered By: Darline Lundy on 01-24-2025 Urea nitrogen [Mass/Vol] 19 mg/dL 4-19 [facility] Sodium levelOrdered By: Oscar Lundy on 01-24-2025 Sodium [Moles/Vol] 136 mmol/L 133-145 [facility] Basic Metabolic Profile (BMP )on 01-23-2025 BUN/CRE 26.3 RATIO High 10-20 [facility] Comment on above: Performed By: #### L 503.0106, BTS, L500.4050, L100.0100, L501.9520 #### [facility] [address] [place], [address] Calcium [Mass/Vol] 8.3 mg/dL Normal 7.6-11.0 [facility] Comment on above: Performed By: #### L 503.0106, BTS, L500.4050, L100.0100, L501.9520 #### [facility] [address] [place], [address] Chloride [Moles/Vol] 102 mmol/L Normal 98-108 [facility] Comment on above: Performed By: #### L 503.0106, BTS, L500.4050, L100.0100, L501.9520 #### [facility] [address] [place], [address] CO2 [Moles/Vol] 24.2 mmol/L Normal 21.0-32.0 [facility] Comment on above: Performed By: #### L 503.0106, BTS, L500.4050, L100.0100, L501.9520 #### [facility] [address] [place], [address] Creatinine [Mass/Vol] 0.61 mg/dL Low 0.70-1.20 [facility] Comment on above: Performed By: #### L 503.0106, BTS, L500.4050, L100.0100, L501.9520 #### [facility] [address] [place], [address] ECRCL 49.16 ml/min Low 50-250 [facility] Comment on above: Performed By: #### L 503.0106, BTS, L500.4050, L100.0100, L501.9520 #### [facility] [address] [place], [address] GAP 9 Normal 5-15 [facility] Comment on above: Performed By: #### L 503.0106, BTS, L500.4050, L100.0100, L501.9520 #### [facility] [address] [place], [address] GFR/1.73 sq M.predicted among non-blacks MDRD (S/P/Bld) [Vol rate/Area] 89 mL/min/{1.73_m2} Normal >60 [facility] Comment on above: Result Comment: mL/m in/1.73m2 CKD-EPI Creatinine Equation (2020) Performed By: #### L 503.0106, BTS, L500.4050, L100.0100, L501.9520 #### [facility] [address] [place], [address] Glucose [Mass/Vol] 105 mg/dL High 70-99 [facility] Comment on above: Performed By: #### L 503.0106, BTS, L500.4050, L100.0100, L501.9520 #### [facility] [address] [place], [address] Potassium [Moles/Vol] 3.8 mmol/L Normal 3.3-5.1 [facility] Comment on above: Performed By: #### L 503.0106, BTS, L500.4050, L100.0100, L501.9520 #### [facility] [address] [place], [address] Sodium [Moles/Vol] 135 mmol/L Normal 133-145 [facility] Comment on above: Performed By: #### L 503.0106, BTS, L500.4050, L100.0100, L501.9520 #### [facility] [address] [place], [address] Urea nitrogen [Mass/Vol] 16 mg/dL Normal 4-19 [facility] Comment on above: Performed By: #### L 503.0106, BTS, L500.4050, L100.0100, L501.9520 #### [facility] [address] [place], [address] CBC-Complete Blood Cnt No Di ffon 01-23-2025 Erythrocyte distribution width (RBC) [Ratio] 13.2 % Normal 11.6-14.6 [facility] Comment on above: Performed By: #### L 503.0106, BTS, L500.4050, L100.0100, L501.9520 #### [facility] [address] [place], [address] Hematocrit (Bld) [Volume fraction] 25.6 % Low 37-47 [facility] Comment on above: Performed By: #### L 503.0106, BTS, L500.4050, L100.0100, L501.9520 #### [facility] [address] [place], [address] Hemoglobin (Bld) [Mass/Vol] 8.6 g/dL Low 12.0-15.0 [facility] Comment on above: Performed By: #### L 503.0106, BTS, L500.4050, L100.0100, L501.9520 #### [facility] [address] [place], [address] MCH (RBC) [Entitic mass] 27.7 pg Normal 27.0-32.0 [facility] Comment on above: Performed By: #### L 503.0106, BTS, L500.4050, L100.0100, L501.9520 #### [facility] [address] [place], [address] MCHC (RBC) [Mass/Vol] 33.6 g/dL Normal 32-36 [facility] Comment on above: Performed By: #### L 503.0106, BTS, L500.4050, L100.0100, L501.9520 #### [facility] [address] [place], [address] MCV (RBC) [Entitic vol] 82.6 fL Normal 81-99 [facility] Comment on above: Performed By: #### L 503.0106, BTS, L500.4050, L100.0100, L501.9520 #### [facility] [address] [place], [address] Platelet mean volume (Bld) [Entitic vol] 9.2 fL Normal 6.2-12.0 [facility] Comment on above: Performed By: #### L 503.0106, BTS, L500.4050, L100.0100, L501.9520 #### [facility] [address] [place], [address] Platelets (Bld) [#/Vol] 250 10*3/uL Normal 150-450 [facility] Comment on above: Performed By: #### L 503.0106, BTS, L500.4050, L100.0100, L501.9520 #### [facility] [address] [place], [address] RBC (Bld) [#/Vol] 3.10 10*6/uL Low 4.2-5.4 [facility] Comment on above: Performed By: #### L 503.0106, BTS, L500.4050, L100.0100, L501.9520 #### [facility] [address] [place], [address] RDW SD 39.6 fl Normal 35.1-43.9 [facility] Comment on above: Performed By: #### L 503.0106, BTS, L500.4050, L100.0100, L501.9520 #### [facility] [address] [place], [address] WBC (Bld) [#/Vol] 8.6 10*3/uL Normal 4.4-11.0 [facility] Comment on above: Performed By: #### L 503.0106, BTS, L500.4050, L100.0100, L501.9520 #### [facility] [address] [place], [address] Ferritinon 01-23-2025 Ferritin [Mass/Vol] 1208 ng/mL High 22-378 [facility] Comment on above: Performed By: #### L 503.6030, L503.6550 #### [facility] [address] [place], [address] Iron measurement (mass/mass) Ordered By: Davian Kelly on 01-23-2025 Iron (Unsp spec) [Mass/Mass] 70 ug/dL 50-170 [facility] Iron+Iron Binding Capacityon 01-23-2025 TIBC 189 ug/dL Low 250-450 [facility] Comment on above: Performed By: #### L 503.6030, L503.6550 #### [facility] [address] [place], [address] No Panel InformationOrdered By: Davian Kelly on 01-23-2025 Unsaturated Iron Binding Capacity 119 ug/dL Low 228-428 [facility] Serum or plasma ferritin allison surement (mass/volume)Ordered By: Davian Kelly on 01-23-2025 Ferritin [Mass/Vol] 1208 ng/mL High 22-378 [facility] Serum or plasma iron saturat ion measurement (mass fraction)Ordered By: Davian Kelly on 01-23-2025 Iron saturation [Mass fraction] 37.0 % 13-59 [facility] Basic Metabolic Profile (BMP )on 01-22-2025 BUN/CRE 27.5 RATIO High 1020 [facility] Comment on above: Performed By: #### L 503.0106, BTS, L500.4050, L100.0100, L501.9520 #### [facility] [address] [place], [address] Calcium [Mass/Vol] 8.2 mg/dL Normal 7.6-11.0 [facility] Comment on above: Performed By: #### L 503.0106, BTS, L500.4050, L100.0100, L501.9520 #### [facility] [address] [place], [address] Chloride [Moles/Vol] 103 mmol/L Normal 98-108 [facility] Comment on above: Performed By: #### L 503.0106, BTS, L500.4050, L100.0100, L501.9520 #### [facility] [address] [place], [address] CO2 [Moles/Vol] 23.1 mmol/L Normal 21.0-32.0 [facility] Comment on above: Performed By: #### L 503.0106, BTS, L500.4050, L100.0100, L501.9520 #### [facility] [address] [place], [address] Creatinine [Mass/Vol] 0.64 mg/dL Low 0.70-1.20 [facility] Comment on above: Performed By: #### L 503.0106, BTS, L500.4050, L100.0100, L501.9520 #### [facility] [address] [place], [address] ECRCL 50.86 ml/min Normal 50-250 [facility] Comment on above: Performed By: #### L 503.0106, BTS, L500.4050, L100.0100, L501.9520 #### [facility] [address] [place], [address] GAP 10 Normal 5-15 [facility] Comment on above: Performed By: #### L 503.0106, BTS, L500.4050, L100.0100, L501.9520 #### [facility] [address] [place], [address] GFR/1.73 sq M.predicted among non-blacks MDRD (S/P/Bld) [Vol rate/Area] 88 mL/min/{1.73_m2} Normal >60 [facility] Comment on above: Result Comment: mL/m in/1.73m2 CKD-EPI Creatinine Equation (2020) Performed By: #### L 503.0106, BTS, L500.4050, L100.0100, L501.9520 #### [facility] [address] [place], [address] Glucose [Mass/Vol] 135 mg/dL High 70-99 [facility] Comment on above: Performed By: #### L 503.0106, BTS, L500.4050, L100.0100, L501.9520 #### [facility] [address] [place], [address] Potassium [Moles/Vol] 4.2 mmol/L Normal 3.3-5.1 [facility] Comment on above: Performed By: #### L 503.0106, BTS, L500.4050, L100.0100, L501.9520 #### [facility] [address] [place], [address] Sodium [Moles/Vol] 136 mmol/L Normal 133-145 [facility] Comment on above: Performed By: #### L 503.0106, BTS, L500.4050, L100.0100, L501.9520 #### [facility] [address] [place], [address] Urea nitrogen [Mass/Vol] 18 mg/dL Normal 4-19 [facility] Comment on above: Performed By: #### L 503.0106, BTS, L500.4050, L100.0100, L501.9520 #### [facility] [address] [place], [address] CBC-Complete Blood Cnt No Di ffon 01-22-2025 Erythrocyte distribution width (RBC) [Ratio] 13.0 % Normal 11.6-14.6 [facility] Comment on above: Performed By: #### L 503.0106, BTS, L500.4050, L100.0100, L501.9520 #### [facility] [address] [place], [address] Hematocrit (Bld) [Volume fraction] 26.6 % Low 37-47 [facility] Comment on above: Performed By: #### L 503.0106, BTS, L500.4050, L100.0100, L501.9520 #### [facility] [address] [place], [address] Hemoglobin (Bld) [Mass/Vol] 9.1 g/dL Low 12.0-15.0 [facility] Comment on above: Performed By: #### L 503.0106, BTS, L500.4050, L100.0100, L501.9520 #### [facility] [address] [place], [address] MCH (RBC) [Entitic mass] 27.9 pg Normal 27.0-32.0 [facility] Comment on above: Performed By: #### L 503.0106, BTS, L500.4050, L100.0100, L501.9520 #### [facility] [address] [place], [address] MCHC (RBC) [Mass/Vol] 34.2 g/dL Normal 32-36 [facility] Comment on above: Performed By: #### L 503.0106, BTS, L500.4050, L100.0100, L501.9520 #### [facility] [address] [place], [address] MCV (RBC) [Entitic vol] 81.6 fL Normal 81-99 [facility] Comment on above: Performed By: #### L 503.0106, BTS, L500.4050, L100.0100, L501.9520 #### [facility] [address] [place], [address] Platelet mean volume (Bld) [Entitic vol] 9.2 fL Normal 6.2-12.0 [facility] Comment on above: Performed By: #### L 503.0106, BTS, L500.4050, L100.0100, L501.9520 #### [facility] [address] [place], [address] Platelets (Bld) [#/Vol] 211 10*3/uL Normal 150-450 [facility] Comment on above: Performed By: #### L 503.0106, BTS, L500.4050, L100.0100, L501.9520 #### [facility] [address] [place], [address] RBC (Bld) [#/Vol] 3.26 10*6/uL Low 4.2-5.4 [facility] Comment on above: Performed By: #### L 503.0106, BTS, L500.4050, L100.0100, L501.9520 #### [facility] [address] [place], [address] RDW SD 39.3 fl Normal 35.1-43.9 [facility] Comment on above: Performed By: #### L 503.0106, BTS, L500.4050, L100.0100, L501.9520 #### [facility] [address] [place], [address] WBC (Bld) [#/Vol] 8.6 10*3/uL Normal 4.4-11.0 [facility] Comment on above: Performed By: #### L 503.0106, BTS, L500.4050, L100.0100, L501.9520 #### [facility] [address] [place], [address] Basic Metabolic Profile (BMP )on 01-21-2025 BUN/CRE 16.5 RATIO Normal 10-20 [facility] Comment on above: Performed By: #### L 503.0106, BTS, L500.4050, L100.0100, L501.9520 #### [facility] [address] [place], [address] Calcium [Mass/Vol] 7.8 mg/dL Normal 7.6-11.0 [facility] Comment on above: Performed By: #### L 503.0106, BTS, L500.4050, L100.0100, L501.9520 #### [facility] [address] [place], [address] Chloride [Moles/Vol] 103 mmol/L Normal 98-108 [facility] Comment on above: Performed By: #### L 503.0106, BTS, L500.4050, L100.0100, L501.9520 #### [facility] [address] [place], [address] CO2 [Moles/Vol] 22.5 mmol/L Normal 21.0-32.0 [facility] Comment on above: Performed By: #### L 503.0106, BTS, L500.4050, L100.0100, L501.9520 #### [facility] [address] [place], [address] Creatinine [Mass/Vol] 0.69 mg/dL Low 0.70-1.20 [facility] Comment on above: Performed By: #### L 503.0106, BTS, L500.4050, L100.0100, L501.9520 #### [facility] [address] [place], [address] ECRCL 49.36 ml/min Low 50-250 [facility] Comment on above: Performed By: #### L 503.0106, BTS, L500.4050, L100.0100, L501.9520 #### [facility] [address] [place], [address] GAP 10 Normal 5-15 [facility] Comment on above: Performed By: #### L 503.0106, BTS, L500.4050, L100.0100, L501.9520 #### [facility] [address] [place], [address] GFR/1.73 sq M.predicted among non-blacks MDRD (S/P/Bld) [Vol rate/Area] 86 mL/min/{1.73_m2} Normal >60 [facility] Comment on above: Result Comment: mL/m in/1.73m2 CKD-EPI Creatinine Equation (2020) Performed By: #### L 503.0106, BTS, L500.4050, L100.0100, L501.9520 #### [facility] [address] [place], [address] Glucose [Mass/Vol] 167 mg/dL High 70-99 [facility] Comment on above: Performed By: #### L 503.0106, BTS, L500.4050, L100.0100, L501.9520 #### [facility] [address] [place], [address] Potassium [Moles/Vol] 3.8 mmol/L Normal 3.3-5.1 [facility] Comment on above: Performed By: #### L 503.0106, BTS, L500.4050, L100.0100, L501.9520 #### [facility] [address] [place], [address] Sodium [Moles/Vol] 135 mmol/L Normal 133-145 [facility] Comment on above: Performed By: #### L 503.0106, BTS, L500.4050, L100.0100, L501.9520 #### [facility] [address] [place], [address] Urea nitrogen [Mass/Vol] 11 mg/dL Normal 4-19 [facility] Comment on above: Performed By: #### L 503.0106, BTS, L500.4050, L100.0100, L501.9520 #### [facility] [address] [place], [address] CBC-Complete Blood Cnt No Di ffon 01-21-2025 Erythrocyte distribution width (RBC) [Ratio] 13.1 % Normal 11.6-14.6 [facility] Comment on above: Performed By: #### L 503.0106, BTS, L500.4050, L100.0100, L501.9520 #### [facility] [address] [place], [address] Hematocrit (Bld) [Volume fraction] 28.9 % Low 37-47 [facility] Comment on above: Performed By: #### L 503.0106, BTS, L500.4050, L100.0100, L501.9520 #### [facility] [address] [place], [address] Hemoglobin (Bld) [Mass/Vol] 9.7 g/dL Low 12.0-15.0 [facility] Comment on above: Performed By: #### L 503.0106, BTS, L500.4050, L100.0100, L501.9520 #### [facility] [address] [place], [address] MCH (RBC) [Entitic mass] 27.6 pg Normal 27.0-32.0 [facility] Comment on above: Performed By: #### L 503.0106, BTS, L500.4050, L100.0100, L501.9520 #### [facility] [address] [place], [address] MCHC (RBC) [Mass/Vol] 33.6 g/dL Normal 32-36 [facility] Comment on above: Performed By: #### L 503.0106, BTS, L500.4050, L100.0100, L501.9520 #### [facility] [address] [place], [address] MCV (RBC) [Entitic vol] 82.3 fL Normal 81-99 [facility] Comment on above: Performed By: #### L 503.0106, BTS, L500.4050, L100.0100, L501.9520 #### [facility] [address] [place], [address] Platelet mean volume (Bld) [Entitic vol] 8.8 fL Normal 6.2-12.0 [facility] Comment on above: Performed By: #### L 503.0106, BTS, L500.4050, L100.0100, L501.9520 #### [facility] [address] [place], [address] Platelets (Bld) [#/Vol] 209 10*3/uL Normal 150-450 [facility] Comment on above: Performed By: #### L 503.0106, BTS, L500.4050, L100.0100, L501.9520 #### [facility] [address] [place], [address] RBC (Bld) [#/Vol] 3.51 10*6/uL Low 4.2-5.4 [facility] Comment on above: Performed By: #### L 503.0106, BTS, L500.4050, L100.0100, L501.9520 #### [facility] [address] [place], [address] RDW SD 39.8 fl Normal 35.1-43.9 [facility] Comment on above: Performed By: #### L 503.0106, BTS, L500.4050, L100.0100, L501.9520 #### [facility] [address] [place], [address] WBC (Bld) [#/Vol] 12.1 10*3/uL High 4.4-11.0 [facility] Comment on above: Performed By: #### L 503.0106, BTS, L500.4050, L100.0100, L501.9520 #### [facility] [address] [place], [address] Absolute lymphocyte countOrd ered By: Stephan Beard on 01-20-2025 Lymphocytes Auto (Unsp spec) [#/Vol] 0.94 10*3/uL 0.83-4.51 [facility] Absolute neutrophil countOrd ered By: Stephan Beard on 01-20-2025 Neutrophils (Bld) [#/Vol] 6.9 10*3/uL 2.0-7.7 [facility] Automated lymphocyte count a s percentage of total leukocytesOrdered By: Stephan Beard on 01-20-2025 Lymphocytes/100 WBC Auto (Unsp spec) 11.1 % Low 19-41 [facility] Basophil percentageOrdered B y: Stephan Beard on 01-20-2025 Basophils/100 WBC (Bld) 0.1 % 0-1 [facility] Bilirubin Test strip Ql (U)O rdered By: Stephan Beard on 01-20-2025 Bilirubin Ql (U) Negative Negative [facility] Bilirubin, totalOrdered By: Stephan Beard on 01-20-2025 Bilirubin [Mass/Vol] 0.63 mg/dL 0.00-1.30 [facility] CBC W/Diff, Automatedon 01-11 Absolute Lymph 0.94 X10 3/uL Normal 0.83-4.51 [facility] Comment on above: Performed By: #### L 503.0106, BTS, L500.4050, L100.0100, L501.9520 #### [facility] [address] [place], [address] Absolute Neut 6.9 X10 3/uL Normal 2.0-7.7 [facility] Comment on above: Performed By: #### L 503.0106, BTS, L500.4050, L100.0100, L501.9520 #### [facility] [address] [place], [address] Basophils/100 WBC (Bld) 0.1 % Normal 0-1 [facility] Comment on above: Performed By: #### L 503.0106, BTS, L500.4050, L100.0100, L501.9520 #### [facility] [address] [place], [address] Eosinophils/100 WBC (Bld) 0.1 % Normal 0-5 [facility] Comment on above: Performed By: #### L 503.0106, BTS, L500.4050, L100.0100, L501.9520 #### [facility] [address] [place], [address] Erythrocyte distribution width (RBC) [Ratio] 13.1 % Normal 11.6-14.6 [facility] Comment on above: Performed By: #### L 503.0106, BTS, L500.4050, L100.0100, L501.9520 #### [facility] [address] [place], [address] Hematocrit (Bld) [Volume fraction] 34.5 % Low 37-47 [facility] Comment on above: Performed By: #### L 503.0106, BTS, L500.4050, L100.0100, L501.9520 #### [facility] [address] [place], [address] Hemoglobin (Bld) [Mass/Vol] 11.1 g/dL Low 12.0-15.0 [facility] Comment on above: Performed By: #### L 503.0106, BTS, L500.4050, L100.0100, L501.9520 #### [facility] [address] [place], [address] IG% 0.400 Normal 0.0-0.9 [facility] Comment on above: Result Comment: IG% - Immature Granulocytes (promyelocytes, myelocytes and metamyelocytes) > 1% indicates that a LEFT SHIFT is Present. Performed By: #### L 503.0106, BTS, L500.4050, L100.0100, L501.9520 #### [facility] [address] [place], [address] Lymphocytes/100 WBC (Bld) 11.1 % Low 19-41 [facility] Comment on above: Performed By: #### L 503.0106, BTS, L500.4050, L100.0100, L501.9520 #### [facility] [address] [place], [address] MCH (RBC) [Entitic mass] 27.3 pg Normal 27.0-32.0 [facility] Comment on above: Performed By: #### L 503.0106, BTS, L500.4050, L100.0100, L501.9520 #### [facility] [address] [place], [address] MCHC (RBC) [Mass/Vol] 32.2 g/dL Normal 32-36 [facility] Comment on above: Performed By: #### L 503.0106, BTS, L500.4050, L100.0100, L501.9520 #### [facility] [address] [place], [address] MCV (RBC) [Entitic vol] 84.8 fL Normal 81-99 [facility] Comment on above: Performed By: #### L 503.0106, BTS, L500.4050, L100.0100, L501.9520 #### [facility] [address] [place], [address] Monocytes/100 WBC (Bld) 7.2 % Normal 0-10 [facility] Comment on above: Performed By: #### L 503.0106, BTS, L500.4050, L100.0100, L501.9520 #### [facility] [address] [place], [address] Neutrophils/100 WBC (Bld) 81.1 % High 47-70 [facility] Comment on above: Performed By: #### L 503.0106, BTS, L500.4050, L100.0100, L501.9520 #### [facility] [address] [place], [address] Nucleated RBC (Bld) [#/Vol] 0 10*3/uL Normal 0-5 [facility] Comment on above: Performed By: #### L 503.0106, BTS, L500.4050, L100.0100, L501.9520 #### [facility] [address] [place], [address] Platelet mean volume (Bld) [Entitic vol] 8.8 fL Normal 6.2-12.0 [facility] Comment on above: Performed By: #### L 503.0106, BTS, L500.4050, L100.0100, L501.9520 #### [facility] [address] [place], [address] Platelets (Bld) [#/Vol] 241 10*3/uL Normal 150-450 [facility] Comment on above: Performed By: #### L 503.0106, BTS, L500.4050, L100.0100, L501.9520 #### [facility] [address] [place], [address] RBC (Bld) [#/Vol] 4.07 10*6/uL Low 4.2-5.4 [facility] Comment on above: Performed By: #### L 503.0106, BTS, L500.4050, L100.0100, L501.9520 #### [facility] [address] [place], [address] RDW SD 40.1 fl Normal 35.1-43.9 [facility] Comment on above: Performed By: #### L 503.0106, BTS, L500.4050, L100.0100, L501.9520 #### [facility] [address] [place], [address] WBC (Bld) [#/Vol] 8.5 10*3/uL Normal 4.4-11.0 [facility] Comment on above: Performed By: #### L 503.0106, BTS, L500.4050, L100.0100, L501.9520 #### [facility] [address] [place], [address] Comprehensive Metabolic [facility] ilon 01-20-2025 Albumin [Mass/Vol] 3.6 g/dL Normal 3.4-4.8 [facility] Comment on above: Performed By: #### L 503.0106, BTS, L500.4050, L100.0100, L501.9520 #### [facility] [address] [place], [address] Albumin/Globulin [Mass ratio] 1.4 {ratio} Normal 0.9-2.4 [facility] Comment on above: Performed By: #### L 503.0106, BTS, L500.4050, L100.0100, L501.9520 #### [facility] [address] [place], [address] ALK PHOS 51 U/L Normal 35-104 [facility] Comment on above: Performed By: #### L 503.0106, BTS, L500.4050, L100.0100, L501.9520 #### [facility] [address] [place], [address] ALT [Catalytic activity/Vol] U/L Normal <=34 [facility] Comment on above: Performed By: #### L 503.0106, BTS, L500.4050, L100.0100, L501.9520 #### [facility] [address] [place], [address] AST [Catalytic activity/Vol] 19 U/L Normal <=31 [facility] Comment on above: Performed By: #### L 503.0106, BTS, L500.4050, L100.0100, L501.9520 #### [facility] [address] [place], [address] Bilirubin [Mass/Vol] 0.63 mg/dL Normal 0.00-1.30 [facility] Comment on above: Performed By: #### L 503.0106, BTS, L500.4050, L100.0100, L501.9520 #### [facility] [address] [place], [address] BUN/CRE 19.9 RATIO Normal 10-20 [facility] Comment on above: Performed By: #### L 503.0106, BTS, L500.4050, L100.0100, L501.9520 #### [facility] [address] [place], [address] Calcium [Mass/Vol] 8.2 mg/dL Normal 7.6-11.0 [facility] Comment on above: Performed By: #### L 503.0106, BTS, L500.4050, L100.0100, L501.9520 #### [facility] [address] [place], [address] Chloride [Moles/Vol] 100 mmol/L Normal 98-108 [facility] Comment on above: Performed By: #### L 503.0106, BTS, L500.4050, L100.0100, L501.9520 #### [facility] [address] [place], [address] CO2 [Moles/Vol] 21.8 mmol/L Normal 21.0-32.0 [facility] Comment on above: Performed By: #### L 503.0106, BTS, L500.4050, L100.0100, L501.9520 #### [facility] [address] [place], [address] Creatinine [Mass/Vol] 0.65 mg/dL Low 0.70-1.20 [facility] Comment on above: Performed By: #### L 503.0106, BTS, L500.4050, L100.0100, L501.9520 #### [facility] [address] [place], [address] ECRCL 50.52 ml/min Normal 50-250 [facility] Comment on above: Performed By: #### L 503.0106, BTS, L500.4050, L100.0100, L501.9520 #### [facility] [address] [place], [address] GAP 12 Normal 5-15 [facility] Comment on above: Performed By: #### L 503.0106, BTS, L500.4050, L100.0100, L501.9520 #### [facility] [address] [place], [address] GFR/1.73 sq M.predicted among non-blacks MDRD (S/P/Bld) [Vol rate/Area] 87 mL/min/{1.73_m2} Normal >60 [facility] Comment on above: Result Comment: mL/m in/1.73m2 CKD-EPI Creatinine Equation (2020) Performed By: #### L 503.0106, BTS, L500.4050, L100.0100, L501.9520 #### [facility] [address] [place], [address] Globulin (S) [Mass/Vol] 2.7 g/dL Normal 2.2-4.2 [facility] Comment on above: Performed By: #### L 503.0106, BTS, L500.4050, L100.0100, L501.9520 #### [facility] [address] [place], [address] Glucose [Mass/Vol] 98 mg/dL Normal 70-99 [facility] Comment on above: Performed By: #### L 503.0106, BTS, L500.4050, L100.0100, L501.9520 #### [facility] [address] [place], [address] Potassium [Moles/Vol] 3.5 mmol/L Normal 3.3-5.1 [facility] Comment on above: Performed By: #### L 503.0106, BTS, L500.4050, L100.0100, L501.9520 #### [facility] [address] [place], [address] Sodium [Moles/Vol] 134 mmol/L Normal 133-145 [facility] Comment on above: Performed By: #### L 503.0106, BTS, L500.4050, L100.0100, L501.9520 #### [facility] [address] [place], [address] T PROT 6.3 g/dL Normal 5.9-8.4 [facility] Comment on above: Performed By: #### L 503.0106, BTS, L500.4050, L100.0100, L501.9520 #### [facility] [address] [place], [address] Urea nitrogen [Mass/Vol] 13 mg/dL Normal 4-19 [facility] Comment on above: Performed By: #### L 503.0106, BTS, L500.4050, L100.0100, L501.9520 #### [facility] [address] [place], [address] Consultation - Orthopedicson 01-20-2025 Consultation - Orthopedics [facility] Medical Records Department [address] [place] [address] Consultation - Orthopedics 01/20/25 1415 MR#: [id number] Acct: [id number] Name: MONISHA COHN Rep #: [id number] : 1940 84 From: Braulio Tijerina MD PCP: Tressa Rosales Status:ADM IN Location: MS3 [id number] HPI Consult Data Date of Consult: 01/20/25 [...] Patient notes that she lives in a care home facility and ambulates with a walker or uses a wheelchair. She does not walk independently. She was reported to have fallen yesterday and sustained an injury to her right hand and hip. She was seen at an outside hospital and requested transfer to [place] as they did not have orthopedics. She [...] denies any current treatment or active malignancies. [facility] Medical History Nocturia Urge incontinence Overactive bladder Former tobacco use Depression Hypertension Fall [facility] (closed head injury) Presence of stent in coronary artery ( 12/22/21) Atherosclerotic heart disease of [place] coronary artery without angina pectoris ST elevation [...] Tobacco: How (more content not included)... Normal [facility] Decalcification bone/plaqueo n 01-20-2025 Decalcification bone/plaque ---- Patient Age/Sex Location Account Attending Physician ---- MONISHA COHN 84/F MS3 [id number] Dr. Davian Kelly MD ---- Specimen: [id number] Received: 01/23/25 Status: CAROL Mccauley Num: [id number] Spec Type: TOTAL HIP Subm Dr: Dr. [...] medullary bone. No definitive lesions are identified. Editor Book sections are submitted in 2 cassettes, following decalcification, as follows: A1: Articular cartilage, including area of detached cartilageA2: Congested medullary bone, area of detached cartilage SD 01/23/2025 [facility]:[id number] ---- Patient Age/Sex Location Account Attending Physician ---- MONISHA COHN 84/F MS3 [id number] Dr. Davian Kelly MD ---- Signed (signature on file) Dr. Debbie Corea MD 01/27/25 1357 ---- Normal [facility] Comment on above: Performed By: #### L 503.0106, BTS, L500.4050, L100.0100, L501.9520 #### [facility] [address] [place], [address] ED NOTEon 01-20-2025 ED NOTE HNO ID: [id number] Author: FLORIDALMA SZYMANSKI, RN Service: Emergency Medicine Author Type: Registered Nurse Type: ED Notes Filed: 01/20/2025 00:07 Note Text: [facility] here, chart and report provided along with disk of films Normal [facility] Eosinophil percentageOrdered By: Stephan Beard on 01-20-2025 Eosinophils/100 WBC (Bld) 0.1 % 0-5 [facility] Folate [Mass/volume] in Seru m or PlasmaOrdered By: Stephan Beard on 01-20-2025 Folate [Mass/Vol] 6.23 ng/mL 4.60-34.80 [facility] Comment on above: Hemolysis, Results w ill be affected, Requires Recollection. Folates,Serum (Folic Acid)on 01-20-2025 FOLATES,SERUM 6.23 ng/mL Normal 4.60-34.80 [facility] Comment on above: Result Comment: Hemo lysis, Results will be affected, Requires Recollection. Performed By: #### L 503.0106, BTS, L500.4050, L100.0100, L501.9520 #### [facility] [address] [facility] [address] [place], [address] H AND P Exam - Hospitaliston 01-20-2025 H&P Exam - Hospitalist [facility] Medical Records Department [address] [place] [address] H P Exam - Hospitalist 01/20/25 0112 MR#: [id number] Acct: [id number] Name: MONISHA COHN Rep #: [id number] : 1940 84 From: Stephan Martel DO PCP: Tressa Rosales Status:ADM IN Location: [facility] [place] [id number] [facility] - General General Date of Admission: 01/20/25 Date of Service: 01/20/25 Chief Complaint: Fall with Right Hip Fracture. HPI Narrative MONISHA COHN, is a 84 F with a past medical history of essential hypertension; currently not on treatment, hyperlipidemia; on atorvastatin, former tobacco abuse; with subsequent COPD and pulmonary hypertension, CAD; with RCA stent at [facility] in [place] (2009) and subsequent inferior wall ST elevation [place] s/p RCA stent with cardiogenic shock and [...] recently diagnosed GENA-19 who was transferred from [facility] after she was diagnosed with an [...] LOC with her fall. Dr. North of [facility] spoke to Dr. Tijerina of the orthopedic service here who recommended admission to the hospitalist service with formal consultation pending in the a.m. for ORIF. She was then admitted to the general medical floor for ongoing care for stay that is expected to extend beyond 2 midnights. [facility] Medical History Nocturia Urge incontinence Overactive bladder Former tobacco use Depression Hypertension Fall [facility] (closed head injury) Presence of stent in coronary artery ( 12/22/21) Atherosclerotic heart disease of [place] coronary artery without angina pectoris ST elevation [...] PO .COMPLEX (more content not included)... Normal [facility] Hip Min 2 Views (Portable)on 01-20-2025 Hip Min 2 Views (Portable) [facility] Services [address] [place] [address] Hip Min 2 Views (Portable) MR#: [id number] Acct: [id number] Name: MONISHA COHN Rep #: [id number] : 1940 F 84 From: Law brewster MD PCP: Tressa Rosales Status: ADM IN Study: Hip Min 2 Views (Portable) Date of Exam: 01/20 Exam# [id number] Ordering Dr: Braulio Tijerina MD PROCEDURE: HIP [...] hip chronic and surgical changes. [facility] CC: Dr. Braulio Tijerina MD; Tressa Rosales Landscape Laborer: Signed Normal [facility] Hip Min 2 Views (Portable) [facility] Services [address] [place] [address] Hip Min 2 Views (Portable) MR#: [id number] Acct: [id number] Name: MONISHA COHN Rep #: [id number] : 1940 F 84 From: Law brewster MD PCP: Tressa Rosales Status: ADM IN Study: Hip Min 2 Views (Portable) Date of Exam: 01/20 Exam# [id number] Ordering Dr: Braulio Tijerina MD PROCEDURE: HIP [...] CC: Dr. Braulio Tijerina MD; Tressa Rosales Landscape Laborer: Signed Normal [facility] Immature granulocytes/100 WB C Auto (Bld)Ordered By: Stephan Beard on 01-20-2025 Immature granulocytes/100 WBC (Bld) 0.400 % 0.0-0.9 [facility] Comment on above: IG% - Immature Granu locytes (promyelocytes, myelocytes and metamyelocytes) > 1% indicates that a LEFT SHIFT is Present. Ketones Test strip Ql (U)Ord ered By: Stephan Beard on 01-20-2025 Ketones Ql (U) 15 mg/dl High Negative [facility] L501.4021on 01-20-2025 Trop T High Sen 27 ng/L High <=14 [facility] Comment on above: Performed By: #### L 503.0106, BTS, L500.4050, L100.0100, L501.9520 #### [facility] [address] [facility] [place], [address] Laboratory - Chemistry and C hemistry - challengeOrdered By: Stephan Beard on 01-20-2025 AST [Catalytic activity/Vol] 19 U/L <32 [facility] MR/POSTOP.ANEon 01-20-2025 MR/POSTOP.ANE [facility] Medical Records Department [address] [place] [address] Anesthesia Postop Eval I 01/20/25 1715 MR#: [id number] Acct: [id number] Name: MONISHA COHN Rep #: [id number] : 1940 84 From: Brennen Rojas CRNA PCP: Tressa Rosales Status:ADM IN Y Race: C Location: [place]3 [id number] Anesthesia: Postop Eval I Current Vital Signs [...] [place] JULIAN Cosigner Signature: CC: Signed Normal [facility] MR/[id number] 01-20-2025 /[facility] Medical Records Department [address] [place] [address] Anesthesia Postop Eval II 01/20/251705 MR#: [id number] Acct: [id number] Name: MONISHA COHN Rep #: [id number] : 1940 84 From: Jareth Shepard MD PCP: Tressa Rosales Status:ADM IN Y Race: C Location: [facility] [place] [id number] Anesthesia Postop Eval I Sum Anesthesia Postop [...] MD Cosigner Signature: Date CC: Signed Normal [facility] Microscopic analysis of urin e for red blood cells (RBC)Ordered By: Stephan Beard on 01-20-2025 Microscopic analysis of urine for red blood cells (RBC) 0 SEEN /hpf 0-5 [facility] Monocyte percentageOrdered B y: Stephan Beard on 01-20-2025 Monocytes/100 WBC (Bld) 7.2 % 0-10 [facility] Mucus LM Ql (Urine sed)Order ed By: Stephan Beard on 01-20-2025 Mucus Ql (Urine sed) 0 SEEN /hpf [facility] Neutrophil percentageOrdered By: Stephan Beard on 01-20-2025 Neutrophils/100 WBC (Bld) 81.1 % High 47-70 [facility] Nitrite Test strip Ql (U)Ord ered By: Stephan Beard on 01-20-2025 Nitrite Ql (U) Negative Negative [facility] Nucleated red blood cell per centageOrdered By: Stephan Beard on 01-20-2025 Nucleated RBC/100 WBC (Bld) [Ratio] 0 % 0-5 [facility] Operative Reporton Operative Report [facility] Medical Records Department [address] [place] [address] Operative Report 01/20/25 1545 MR#: [id number] Acct: [id number] Name: MONISHA COHN Rep #: [id number] : 1940 84 From: Braulio Tijerina MD PCP: Tressa Rosales Status:ADM IN [facility] Oper[facility] Report (Standard) Operative Information Date of Procedure: 01/20/25 Pre-Operative Diagnosis: Right hip subcapital femoral neck fracture Post-Operative Diagnosis: Right hip subcapital femoral neck fracture Surgery/Procedure Performed: Right hip endoprosthesis scouring train operator: Yes Textile Colorist Dyer: Edyta Bhatti Tasks completed by assistant child care teacher: Opening, Closing, Implanting device and Retracting Additional facilities maintenance assistant?: No Type of Anesthesia: General RN [...] the emmanuel (more content not included)... Normal [facility] Phosphoruson 01-20-2025 Phosphate [Mass/Vol] 2.4 mg/dL Low 2.7-4.5 [facility] Comment on above: Performed By: #### L 501.2300 #### [facility] [address] [place], [address] Protein Test strip Ql (U)Ord ered By: Stephan Beard on 01-20-2025 Protein Ql (U) 15 mg/dl High Negative [facility] Serum globulin measurementOr dered By: Stephan dela cruz 01-20-2025 Globulin (S) [Mass/Vol] 2.7 g/dL 2.2-4.2 [facility] Serum or plasma alanine swenson otransferase (ALT) measurementOrdered By: Stephan Beard on 01-20-2025 ALT [Catalytic activity/Vol] U/L <35 [facility] Serum or plasma albumin taylor urement (mass/volume)Ordered By: Stephan Beard on 01-20-2025 Albumin [Mass/Vol] 3.6 g/dL 3.4-4.8 [facility] Serum or plasma albumin/glob ulin mass ratioOrdered By: Stephan Beard on 01-20-2025 Albumin/Globulin [Mass ratio] 1.4 {ratio} 0.9-2.4 [facility] Serum or plasma alkaline nhi sphatase measurementOrdered By: Stephan Beard on 01-20-2025 ALP [Catalytic activity/Vol] 51 U/L 35-104 [facility] Squamous epithelial cells de tection in urine sediment by light microscopyOrdered By: Stephan Beard on 01-20-2025 Epithelial cells.squamous LM Ql (Urine sed) 0 SEEN /hpf -10 [facility] TSH DL <= 0.005 mIU/L QnOrde red By: Stephan Beard on 01-20-2025 TSH Qn 1.900 uIU/mL 0.300-4.200 [facility] Thyroid Stim Hormone (TSH)on 01-20-2025 TSH 1.900 uIU/mL Normal 0.300-4.200 [facility] Comment on above: Performed By: #### L 503.0106, BTS, L500.4050, L100.0100, L501.9520 #### [facility] [address] [place], [address] Total proteinOrdered By: Melchor Beard on 01-20-2025 Protein [Mass/Vol] 6.3 g/dL 5.9-8.4 [facility] Troponin T HS 2 HRon 025 Trop T High Sen 29 ng/L High <=14 [facility] Comment on above: Performed By: #### L 503.0106, BTS, L500.4050, L100.0100, L501.9520 #### [facility] [address] [place], [address] Troponin T HS 4 HRon 025 Trop T High Sen 28 ng/L High <=14 [facility] Comment on above: Performed By: #### L 503.0106, BTS, L500.4050, L100.0100, L501.9520 #### [facility] [address] [place], [address] Troponin T.cardiac [Mass/vol ume] in Serum or Plasma by High sensitivity methodOrdered By: Stephan Beard on 01-20-2025 Troponin T.cardiac High sensitivity method [Mass/Vol] 28 ng/L High <14 [facility] Troponin T.cardiac High sensitivity method [Mass/Vol] 29 ng/L High <14 [facility] Troponin T.cardiac High sensitivity method [Mass/Vol] 27 ng/L High <14 [facility] Type AND Screenon 01-20-2025 ABO and Rh group Nom (Bld) Blood group B Rh(D) positive Normal [facility] Comment on above: Order Comment: S Performed By: #### L 503.0106, BTS, L500.4050, L100.0100, L501.9520 #### [facility] [address] [place], [address] Urinalysis, Completeon 01-20 BACTERIA 0 SEEN Normal None Seen [facility] Comment on above: Order Comment: CLEAN CATCH Performed By: #### L 503.0106, BTS, L500.4050, L100.0100, L501.9520 #### [facility] [address] [place], [address] EPI,SQUAMOUS 0 SEEN Normal -10 [facility] Comment on above: Order Comment: CLEAN CATCH Performed By: #### L 503.0106, BTS, L500.4050, L100.0100, L501.9520 #### [facility] [address] [place], [address] Mucus Ql (Urine sed) 0 SEEN Normal [facility] Comment on above: Order Comment: CLEAN CATCH Performed By: #### L 503.0106, BTS, L500.4050, L100.0100, L501.9520 #### [facility] [address] [place], [address] RBC 0 SEEN Normal 0-5 [facility] Comment on above: Order Comment: CLEAN CATCH Performed By: #### L 503.0106, BTS, L500.4050, L100.0100, L501.9520 #### [facility] [address] [place], [address] WBC 0 SEEN Normal 0-5 [facility] Comment on above: Order Comment: CLEAN CATCH Performed By: #### L 503.0106, BTS, L500.4050, L100.0100, L501.9520 #### [facility] [address] [place], [address] Urine clarityOrdered By: Melchor Beard on 01-20-2025 Clarity (U) Sl. Cloudy Clear [facility] Urine color determinationOrd ered By: Stephan Beard on 01-20-2025 Color (U) Yellow Yellow [facility] Urine glucose detectionOrder ed By: Stephan Beard on 01-20-2025 Glucose Ql (U) Normal mg/dl Normal [facility] Urine leukocyte esterase det ection by dipstickOrdered By: Stephan Beard on 01-20-2025 Leukocyte esterase Test strip Ql (U) Negative Negative [facility] Urine pHOrdered By: Stephan hagen on 01-20-2025 pH (U) 6.5 [pH] 5.0 - 8.0 [facility] Urine sediment bacteria coun t by microscopy (number/high power field)Ordered By: Stephan Beard on 01-20-2025 Bacteria LM.HPF (Urine sed) [#/Area] 0 /[HPF] None Seen [facility] Urine specific gravity measu rementOrdered By: Stephan Beard on 01-20-2025 Specific gravity (U) [Rel density] 1.010 1.002-1.030 [facility] Urine urobilinogen measureme ntOrdered By: Stephan Beard on 01-20-2025 Urobilinogen Ql (U) Normal mg/dl Normal [facility] Vitamin B12on 01-20-2025 Cobalamin (Vitamin B12) [Mass/Vol] 1234 pg/mL High 180-914 [facility] Comment on above: Performed By: #### L 503.0106, BTS, L500.4050, L100.0100, L501.9520 #### [facility] [address] [place], [address] Vitamin B12 ser/plasOrdered By: Stephan Beard on 01-20-2025 Cobalamin (Vitamin B12) [Mass/Vol] 1234 pg/mL High 180-914 [facility] White blood cell countOrdere d By: Stephan Beard on 01-20-2025 White blood cell count 0 SEEN /hpf 0-5 [facility] ALLIED HEALTHon 01-19-2025 ALLIED HEALTH HNO ID: [id number] Author: JANNIE MARTINES RT(R) Service: Radiology Author Type: Settlement Clerk Type: Allied Health Filed: 01/19/2025 21:08 Note [...] PATIENT PRESENTS WITH AN IMPLANTABLE OR ATTACHED TOBY MAKER: No RADIOLOGY DEPARTMENT: CT; Exam(s) Completed: Brain and Spine . Anesthesia: No PERIPHERAL IV DATA: Not applicable SIGNED BY: Jannie Martines RT(R) January 19, 2025 9:08 PM Normal [facility] Basic metabolic 2000 panelon 01-19-2025 Anion gap [Moles/Vol] 11 mmol/L Normal 8-15 [facility] Comment on above: Order Comment: Speci men Type: BLOOD SPECIMEN Ordering Facility: [facility] Address: [address] [place] [address] Performed By: #### 2 4321-2 #### [facility] CLIA [id number] [address] [place] [address] [place] Calcium [Mass/Vol] 8.7 mg/dL Normal 8.5-10.2 [facility] Comment on above: Order Comment: Speci men Type: BLOOD SPECIMEN Ordering Facility: [facility] Address: [address] [place] [address] Performed By: #### 2 4321-2 #### [facility] CLIA [id number] [address] [place] [address] [place] Chloride [Moles/Vol] 100 mmol/L Normal 98-107 [facility] Comment on above: Order Comment: Speci men Type: BLOOD SPECIMEN Ordering Facility: [facility] Address: [address] [place] [address] Performed By: #### 2 4321-2 #### [facility] CLIA [id number] [address] [place] [address] [place] CO2 [Moles/Vol] 23 mmol/L Normal 22-30 [facility] Comment on above: Order Comment: Speci men Type: BLOOD SPECIMEN Ordering Facility: [facility] Address: [address] [place] [address] Performed By: #### 2 4321-2 #### [facility] CLIA [id number] [address] [place] [address] [place] Creatinine [Mass/Vol] 0.76 mg/dL Normal 0.58-0.96 [facility] Comment on above: Order Comment: Liza granados Type: BLOOD SPECIMEN Ordering Facility: [facility] Address: [address] [place] [address] Performed By: #### 2 4321-2 #### [facility] CLIA [id number] [address] [place] [address] [place] eGFRcr SerPlBld CKD-EPI 2020 78 mL/min/1.73m??? Normal >=60 [facility] Comment on above: Order Comment: Liza granados Type: BLOOD SPECIMEN Ordering Facility: [facility] Address: [address] [place] [address] Result Comment: Rachael mated Glomerular Filtration Rate [...] GFR. Performed By: #### 2 4321-2 #### [facility] CLIA [id number] [address] [place] [address] [place] Glucose [Mass/Vol] 100 mg/dL High 74-99 [facility] Comment on above: Order Comment: Liza granados Type: BLOOD SPECIMEN Ordering Facility: [facility] Address: [address] [place] [address] Result Comment: The [place] [employer] (ADA) provides guidance for cutoff [...] Standards of Medical Care in Diabetes 2016, [place] [employer]. Diabetes Care. 2016.39(Suppl 1). Performed By: #### 2 4321-2 #### [facility] CLIA [id number] [address] [place] [address] [place] Potassium [Moles/Vol] 3.8 mmol/L Normal 3.7-5.1 [facility] Comment on above: Order Comment: Speci men Type: BLOOD SPECIMEN Ordering Facility: [facility] Address: [address] [place] [address] Performed By: #### 2 4321-2 #### [facility] CLIA [id number] [address] [place] [address] [place] Sodium [Moles/Vol] 134 mmol/L Low 136-144 [facility] Comment on above: Order Comment: Speci men Type: BLOOD SPECIMEN Ordering Facility: [facility] Address: [address] [place] [address] Performed By: #### 2 4321-2 #### [facility] CLIA [id number] [address] [place] [address] [place] Urea nitrogen [Mass/Vol] 14 mg/dL Normal 7-21 [facility] Comment on above: Order Comment: Speci men Type: BLOOD SPECIMEN Ordering Facility: [facility] Address: [address] [place] [address] Performed By: #### 2 4321-2 #### [facility] CLIA [id number] [address] [place] CBC W Auto Differential pane l (Bld)on 01-19-2025 Basophils (Bld) [#/Vol] 10*3/uL Normal <0.11 [facility] Comment on above: Order Comment: Speci men Type: BLOOD SPECIMEN Ordering Facility: [facility] Address: [address] [place] [address] Performed By: #### 5 7021-8 #### [facility] CLIA [id number] [address] [place] [address] [facility] [place] Basophils/100 WBC (Bld) 0.3 % Normal [facility] Comment on above: Order Comment: Speci men Type: BLOOD SPECIMEN Ordering Facility: [facility] Address: [address] [place] [address] Performed By: #### 5 7021-8 #### [facility] CLIA [id number] [address] [place] [address] [place] Differential cell count method Nom (Bld) Auto Normal [facility] Comment on above: Order Comment: Speci men Type: BLOOD SPECIMEN Ordering Facility: [facility] Address: [address] [place] [address] Performed By: #### 5 7021-8 #### [facility] CLIA [id number] [address] [place] [address] [place] Eosinophils (Bld) [#/Vol] 10*3/uL Normal <0.46 [facility] Comment on above: Order Comment: Speci men Type: BLOOD SPECIMEN Ordering Facility: [facility] Address: [address] [place] [address] Performed By: #### 5 7021-8 #### [facility] CLIA [id number] [address] [place] [address] [place] Eosinophils/100 WBC (Bld) 0.3 % Normal [facility] Comment on above: Order Comment: Speci men Type: BLOOD SPECIMEN Ordering Facility: [facility] Address: [address] [place] [address] Performed By: #### 5 7021-8 #### [facility] CLIA [id number] [address] [place] [address] [place] Erythrocyte distribution width (RBC) [Ratio] 13.1 % Normal 11.5-15.0 [facility] Comment on above: Order Comment: Speci men Type: BLOOD SPECIMEN Ordering Facility: [facility] Address: [address] [place] [address] Performed By: #### 5 7021-8 #### [facility] CLIA [id number] [address] [place] [address] [place] Hematocrit (Bld) [Volume fraction] 35.9 % Low 36.0-46.0 [facility] Comment on above: Order Comment: Speci men Type: BLOOD SPECIMEN Ordering Facility: [facility] Address: [address] [place] [address] Performed By: #### 5 7021-8 #### [facility] CLIA [id number] [address] [place] [address] [place] Hemoglobin (Bld) [Mass/Vol] 11.3 g/dL Low 11.5-15.5 [facility] Comment on above: Order Comment: Speci men Type: BLOOD SPECIMEN Ordering Facility: [facility] Address: [address] [place] [address] Performed By: #### 5 7021-8 #### [facility] CLIA [id number] [address] [place] [address] [place] Immature granulocytes (Bld) [#/Vol] 10*3/uL Normal <0.10 [facility] Comment on above: Order Comment: Speci men Type: BLOOD SPECIMEN Ordering Facility: [facility] Address: [address] [place] [address] Performed By: #### 5 7021-8 #### [facility] CLIA [id number] [address] [place] [address] [place] Immature granulocytes/100 WBC (Bld) 0.6 % Normal [facility] Comment on above: Order Comment: Speci men Type: BLOOD SPECIMEN Ordering Facility: [facility] Address: [address] [place] [address] Performed By: #### 5 7021-8 #### [facility] CLIA [id number] [address] [place] [address] [place] Lymphocytes (Bld) [#/Vol] 1.32 10*3/uL Normal 1.00-4.00 [facility] Comment on above: Order Comment: Speci men Type: BLOOD SPECIMEN Ordering Facility: [facility] Address: [address] [place] [address] Performed By: #### 5 7021-8 #### [facility] CLIA [id number] [address] [place] [address] [facility] Lymphocytes/100 WBC (Bld) 40.6 % Normal [facility] Comment on above: Order Comment: Speci men Type: BLOOD SPECIMEN Ordering Facility: [facility] Address: [address] [place] [address] Performed By: #### 5 7021-8 #### [facility] CLIA [id number] [address] [place], [place] [address] [place] [address] MCH (RBC) [Entitic mass] 27.8 pg Normal 26.0-34.0 [facility] Comment on above: Order Comment: Speci men Type: BLOOD SPECIMEN Ordering Facility: [facility] Address: [address] [place] [address] Performed By: #### 5 7021-8 #### [facility] CLIA [id number] [address] [place], [place] [address] [place] [address] MCHC (RBC) [Mass/Vol] 31.5 g/dL Normal 30.5-36.0 [facility] Comment on above: Order Comment: Speci men Type: BLOOD SPECIMEN Ordering Facility: [facility] Address: [address] [place] [address] Performed By: #### 5 7021-8 #### [facility] CLIA [id number] [address] [place], [place] [address] [place] [address] [place] MCV (RBC) [Entitic vol] 88.4 fL Normal 80.0-100.0 [facility] Comment on above: Order Comment: Speci men Type: BLOOD SPECIMEN Ordering Facility: [facility] Address: [address] [place] [address] Performed By: #### 5 7021-8 #### [facility] CLIA [id number] [address] [place] [address] [facility] Monocytes (Bld) [#/Vol] 0.42 10*3/uL Normal <0.87 [facility] Comment on above: Order Comment: Speci men Type: BLOOD SPECIMEN Ordering Facility: [facility] Address: [address] [place] [address] Performed By: #### 5 7021-8 #### [facility] CLIA [id number] [address] [place] [address] [place] Monocytes/100 WBC (Bld) 12.9 % Normal A [facility] Comment on above: Order Comment: Speci men Type: BLOOD SPECIMEN Ordering Facility: [facility] Address: [address] [place] [address] Performed By: #### 5 7021-8 #### [facility] CLIA [id number] [address] [place] [address] [place] Neutrophils (Bld) [#/Vol] 1.47 10*3/uL Normal 1.45-7.50 [facility] Comment on above: Order Comment: Speci men Type: BLOOD SPECIMEN Ordering Facility: [facility] Address: [address] [place] [address] Performed By: #### 5 7021-8 #### [facility] CLIA [id number] [address] [place] [address] [place] Neutrophils/100 WBC (Bld) 45.3 % Normal [facility] Comment on above: Order Comment: Speci men Type: BLOOD SPECIMEN Ordering Facility: [facility] Address: [address] [place] [address] Performed By: #### 5 7021-8 #### [facility] CLIA [id number] [address] [place] [address] [place] Nucleated RBC (Bld) [#/Vol] Normal [facility] Comment on above: Order Comment: Speci men Type: BLOOD SPECIMEN Ordering Facility: [facility] Address: [address] [place] [address] Performed By: #### 5 7021-8 #### [facility] CLIA [id number] [address] [place] [address] [place] Nucleated RBC/100 WBC (Bld) [Ratio] Normal [facility] Comment on above: Order Comment: Speci men Type: BLOOD SPECIMEN Ordering Facility: [facility] Address: [address] [place] [address] Performed By: #### 5 7021-8 #### [facility] CLIA [id number] [address] [place] [address] [place] Platelet mean volume (Bld) [Entitic vol] 8.3 fL Low 9.0-12.7 [facility] Comment on above: Order Comment: Speci men Type: BLOOD SPECIMEN Ordering Facility: [facility] Address: [address] [place] [address] Performed By: #### 5 7021-8 #### [facility] CLIA [id number] [address] [place] [address] [place] Platelets (Bld) [#/Vol] 238 10*3/uL Normal 150-400 [facility] Comment on above: Order Comment: Speci men Type: BLOOD SPECIMEN Ordering Facility: [facility] Address: [address] [place] [address] Performed By: #### 5 7021-8 #### [facility] CLIA [id number] [address] [place] [address] [place] RBC (Bld) [#/Vol] 4.06 10*6/uL Normal 3.90-5.20 [facility] Comment on above: Order Comment: Speci men Type: BLOOD SPECIMEN Ordering Facility: [facility] Address: [address] [place] [address] Performed By: #### 5 7021-8 #### [facility] CLIA [id number] [address] [place] [address] [place] WBC (Bld) [#/Vol] 3.25 10*3/uL Low 3.70-11.00 [facility] Comment on above: Order Comment: Speci men Type: BLOOD SPECIMEN Ordering Facility: [facility] Address: [address] [place] [address] Performed By: #### 5 7021-8 #### [facility] CLIA [id number] [address] [place] [address] [place] [address] BRAIN WO IVCONon 01-20-20 CT BRAIN WO IVCON * * *Final Report* * * DATE OF EXAM: Jan 19 2025 9:04PM [facility] [place] BRAIN WO IVCON / PROCEDURE REASON: Head trauma, moderate-severe * * * * Physician Interpretation * * * * EXAMINATION: CT BRAIN WO IVCON, CT CERVICAL SPINE WO IVCON CLINICAL HISTORY: Head trauma, moderate-severe - - Head trauma, moderate-severe (accession [id number]), Neck trauma, uncomplicated (NEXUS/CCR neg) (Age 16-64y) (accession [id number]) - TECHNIQUE: CT head and cervical spine without contrast. MQ: CTBCSWO_3 Dose-Length Product (DLP): 706.22 (accession [id number]), 154.36 (accession [id number]) mGy*cm CT Dose Reduction Employed: Automated exposure [...] vertebrae with counting from the craniocervical junction. Landscape Laborer: PSCB Transcribe Date/Time: Jan 19 2025 9:06P Dictated by : KERRIE WARNER MD This examination was interpreted and the report reviewed and electronically signed by: KERRIE WARNER MD on Jan 19 2025 9:15PM EST [id number] Normal [facility] CT CERVICAL SPINE WO IVCONon 01-19-2025 CT CERVICAL SPINE WO IVCON * * *Final Report* * * DATE OF EXAM: Jan 19 2025 9:04PM [facility] [place] CT CERVICAL SPINE WO IVCON / PROCEDURE REASON: Neck trauma, uncomplicated (NEXUS/CCR neg) (Age 16-64y) * * * * Physician Interpretation * * * * EXAMINATION: CT BRAIN WO IVCON, CT CERVICAL SPINE WO IVCON CLINICAL HISTORY: Head trauma, moderate-severe - - Head trauma, moderate-severe (accession [id number]), Neck trauma, uncomplicated (NEXUS/CCR neg) (Age 16-64y) (accession [id number]) - TECHNIQUE: CT head and cervical spine without contrast. MQ: CTBCSWO_3 Dose-Length Product (DLP): 706.22 (accession [id number]), 154.36 (accession [id number]) mGy*cm CT Dose Reduction Employed: Automated exposure [...] vertebrae with counting from the craniocervical junction. Landscape Laborer: PSCB Transcribe Date/Time: Jan 19 2025 9:06P Dictated by : KERRIE WARNER MD This examination was interpreted and the report reviewed and electronically signed by: KERRIE WARNER MD on Jan 19 2025 9:15PM EST [id number] [facility] ED NOTEon 01-19-2025 ED NOTE HNO ID: [id number] Author: FLORIDALMA SZYMANSKI RN Service: Emergency Medicine Author Type: Registered Nurse Type: ED Notes Filed: 01/19/2025 23:50 Note Text: Oxygen started at 2L/NC per request from Dr. Maurer for sats staying around 90% on RA [facility] ED NOTE HNO ID: [id number] Author: FLORIDALMA SZYMANSKI RN Service: Emergency Medicine Author Type: Registered Nurse Type: ED Notes Filed: 01/19/2025 23:45 Note Text: Patient informed: the name of medication, why we are giving it, possible side effects, what they may expect to feel, and was offered a chance to ask questions, prior to the administration of fentanyl [facility] ED NOTE HNO ID: [id number] Author: FLORIDALMA SZYMANSKI, RN Service: Emergency Medicine Author Type: Registered Nurse Type: ED Notes Filed: 01/19/2025 23:08 Note Text: Called [facility] for transport eta 1 hour [facility] ED NOTE HNO ID: [id number] Author: FLORIDALMA SZYMANSKI RN Service: Emergency Medicine Author Type: Registered Nurse Type: ED Notes Filed: 01/19/2025 23:04 Note Text: Nursing career technical supervisor from [facility] called with bed assignment -[facility] 309 -report number [phone] -accepted per Dr. Peters [facility] ED NOTE HNO ID: [id number] Author: FLORIDALMA SZYMANSKI, AUGUSTIN Service: Emergency Medicine Author Type: Registered Nurse Type: ED Notes Filed: 01/19/2025 22:38 Note Text: Drr. Maurer speaking with kimber Martinez garage construction equipment mechanic for Dr. Grier from [facility] per pt request Normal [facility] ED NOTE HNO ID: [id number] Author: DWIGHT YOUNGER, AUGUSTIN Service: ? Author Type: Registered Nurse Type: ED Notes Filed: 01/19/2025 19:00 Note Text: Pt fell from standing position while she was at dinner at the longterm. Pt hit her head but denies loc, but does have dizziness. Pt c/o pain in r hand and r hip. Pt is also positive for covid Normal [facility] ED PROV NOTEon 01-19-2025 ED PROV NOTE HNO ID: [id number] Author: RUSSEL MAURER MD Service: Emergency Medicine [...] (more content not included)... Normal [facility] XR CHEST 1V FRONTALon 2024 XR [...] and spine. IMPRESSION: No acute radiographic abnormality. Landscape Laborer: EMMY Transcribe Date/Time: Jan 19 2025 10:19P Dictated by : CYN MORGAN DO This examination was interpreted and the report reviewed and electronically signed by: CYN MORGAN DO on Jan 19 2025 10:19PM EST [id number] Normal [facility] XR HAND 3V PA/LAT/OBL RTon 1 [...] PELV+ AP/LAT RT CLINICAL HISTORY: Trauma (accession [id number]), Hip pain, acute, fx suspected, initial exam (accession [id number]) Technique: XR HAND 3V PA/LAT/OBL RT, XR [...] concerning for impacted right femoral neck fracture. Landscape Laborer: PSCB Transcribe Date/Time: Jan 19 2025 10:16P Dictated by : JANNIE TOMLINSON MD This examination was interpreted and the report reviewed and electronically signed by: JANNIE TOMLINSON MD on Jan 19 2025 10:19PM EST [id number] Normal [facility] XR HIP 3V PELV+ AP/LAT RTon [...] PELV+ AP/LAT RT CLINICAL HISTORY: Trauma (accession [id number]), Hip pain, acute, fx suspected, initial exam (accession [id number]) Technique: XR HAND 3V PA/LAT/OBL RT, XR [...] concerning for impacted right femoral neck fracture. Landscape Laborer: PSCB Transcribe Date/Time: Jan 19 2025 10:16P Dictated by : JANNIE TOMLINSON MD This examination was interpreted and the report reviewed and electronically signed by: JANNIE TOMLINSON MD on Jan 19 2025 10:19PM EST [id number] [facility] ([id number]) 1940 F Date Time Provider Department 12/29/24 [...] Status:Closed by ISABEL JOYA on 12/29/24 Normal [facility] - Chemistry and C hemistry - challengeOrdered By: Alexandria Dejesus on 12-28-2024 Bilirubin Ql (U) Negative [facility] Glucose Ql (U) Negative [facility] Ketones Ql (U) Negative [facility] pH (U) 6 [pH] [facility] Specific gravity (U) [Rel density] 1.015 [facility] Urobilinogen (U) [Mass/Vol] Negative [facility] Laboratory - Hematology and Cell countsOrdered By: Alexandria Dejesus on 12-28-2024 Hemoglobin Ql (U) Negative [facility] Laboratory - UrinalysisOrder ed By: Alexandria Dejesus on 12-28-2024 Nitrite Ql (U) Negative [facility] Protein Ql (U) Trace [facility] MR/Beau 12-28-2024 /BOUBACAR [facility] [address], [address] [place] [address] OFFICE VISIT Date of Service: 12/28/24 MR#: [id number] Acct: [id number] Name: MONISHA COHN Rep #: [id number] : 1940 Provider: Dr. Alexandria Lion i, MD Age/Sex: 84/F Location: [facility] Status: Signed Intake Vital Signs 09/27/24 08:22 12/28/24 13:11 Height 5 ft 2 in 5 ft 2 in Weight: 161 lb BMI 29.4 BP 115/60 Pulse 83 Intake Visit Reasons: 12m med f/u Chief Complaint: 12 month [facility] follow up Human Resources Manager Required: No Accompanied by: ursing home restoration service cleaner Is patient in pain?: Yes (bone spur [...] artery ( 12/22/21) Atherosclerotic heart disease of [place] coronary artery without angina pectoris ST elevation [...] dry ibis (more content not included)... Normal [facility] No Panel InformationOrdered By: Alexandria Dejesus on 12-28-2024 Urine Leukocytes Negatve [facility] Urine Non-Hemolyzed Blood Negative [facility] Cardiovascular stress test r eportOrdered By: Danielle Vernon on 11-07-2024 Study report [facility] [address] [place] [address] MR#: [id number] Acct: [id number] Name: MONISHA COHN Rep #: [id number] : 1940 84 From: Danielle Vernon [...] be obtained. This note was generated with [employer] dictation software. It may contain incorrectwords, spelling, and punctuation that were not noted in checking the note beforesigning. 11/07/241427 Date _ Danielle Vernon MD CC: Dr. Danielle Vernon MD; Tressa Bobby ~ Date Dictated: 11/07/241426 Date Transcribed: 11/07/241426 Landscape Laborer: EVANGELINA Wiseman [facility] Work Phone: Echocardiogram study reportO rdered By: Danielle Vernon on 11-07-2024 Study report [facility] Cardi[facility] [address] [place] [address] Echo Complete 11/03/24928 MR#: [id number] Acct: [id number] Name: MONISHA COHN Rep #:[id number] : 1940 84 From: Danielle Vernon MD Attending Dr: Dr. Danielle Vernon MD Status: REG CLI Ordering Dr: Danielle Vernon MD Date: Location: [facility] Sex: F C Admitted: Reason For Study [...] Date Dictated: 11/03/24928 Date Transcribed: 07/28/25 1248 Landscape Laborer: Signed [facility] Work Phone: Stress Reporton 11-07-2024 Stress Report [facility] [place] [address] MR#: [id number] Acct: [id number] Name: MONISHA COHN Rep #: [id number] : 1940 84 From: Danielle Vernon MD [...] be obtained. This note was generated with [employer] software. It may contain incorrect words, spelling, and punctuation that were not noted in checking the note before signing. 11/07/241427 Date Danielle Vernon MD CC: Dr. Danielle Vernon MD; Tressa Rosales Date Dictated: 11/07/241426 Date Transcribed: 11/07/241426 Landscape Laborer: EVANGELINA Signed Normal [facility] Echo Completeon 11-03-2024 Echo Complete [facility] [address] [place] [address] Echo Complete 11/03/24 0929 MR#: [id number] Acct: [id number] Name: MONISHA COHN Rep #: [id number] : 1940 84 From: Danielle Vernon MD Attending Dr: Dr. Danielle Vernon MD Status: REG CLI Ordering Dr: Danielle Vernon MD Date: 11/03/24 Location: [facility] Sex: F C Admitted: Reason For Study [...] Bobby Date Dictated: 11/03/24928 Date Transcribed: 11/07/241247 Landscape Laborer: Signed Normal [facility] Cardiology Visit Reporton Cardiology Visit Report [facility] [address] [place] [address] OFFICE VISIT Date of Service: 09/27/24 MR#: [id number] Acct: [id number] Name: MONISHA COHN Rep #: [id number] : 1940 Provider: Dr. Danielle Vernon MD Age/Sex: 84/F Location[place] [facility] Status: Signed HPI HPI History of [...] NIBP Intake Visit Reasons: 6 M FU Human Resources Manager Required: No Accompanied by: Is patient in [...] past year?: Yes (no major injuries; 2) [facility] Medical History Atherosclerotic heart disease of [place] coronary artery without angina pectoris Bladder spasms [...] for fatigue (more content not included)... Normal [facility] CNOVon 07-29-2024 CNOV Office Visit (NMMBHT ) MONISHA COHN ([id number]) 1940 F Date Time Provider Department 07/29/24 3:00 PM ARMEN MADISON During your visit today, we recorded the following information about you: Pulse Blood pressure 68/minute 110/65 Armen Madison MD 07/29/2024 3:33 PM Signed [facility] New Patient Visit Note Consultation [...] further r (more content not included)... Normal [facility] Folate SerPl-mCncon 07-30-19 25 Folate [Mass/Vol] 6.2 ng/mL [facility] >[facility].7 [facility] Comment on above: Order Comment: Liza granados Type: BLOOD SPECIMEN Ordering Facility: [facility] Address: [address] [place] [address] Performed By: #### 2 284-8, 2132-9 #### [facility] CLIA [id number] [address] [place] [address] [place] HbA1c (Bld)on 07-29-2024 Average glucose Estimated from glycated hemoglobin (Bld) [Mass/Vol] 100 mg/dL Normal [facility] Comment on above: Order Comment: Liza granados Type: BLOOD SPECIMEN Ordering Facility: [facility] Address: [address] [place] [address] Result Comment: eAG: (Estimated average glucose) is a calculated value from HgbA1c and is patient relations representative of the average blood glucose level in the last 2-3 month period. Performed By: #### 5 5454-3 #### [facility] CLIA [id number] [address] [place] [address] [place] HbA1c (Bld) [Mass fraction] 5.1 % Normal 4.3-5.6 [facility] Comment on above: Order Comment: Liza granados Type: BLOOD SPECIMEN Ordering Facility: [facility] Address: [address] [place] [address] Result Comment: Amer ican Diabetes Association guidelines indicate that patients with HgbA1c in the range 5.7-6.4% are at increased risk for development of diabetes, and intervention by lifestyle modification may be beneficial. HgbA1c greater or equal to 6.5% is considered diagnostic of diabetes. Performed By: #### 5 5454-3 #### [facility] CLIA [id number] [address] [place] [address] IMMUNOFIXATION SCREEN, SERUM on 07-29-2024 INTERPRETATION (MPA) Atypical restricted bands are present in the IgG and lambda regions. Consistent with IgG lambda monoclonal gammopathy. Normal [facility] Comment on above: Order Comment: Liza granados Type: BLOOD SPECIMEN Ordering Facility: [facility] Address: [address] [place] [address] Performed By: #### I FESC #### [facility] CLIA [id number] [address] [place] [address] STATES OF [facility] MPA RESULT M protein is present. Abnormal No M p rotein is identified. [facility] Comment on above: Order Comment: Liza granados Type: BLOOD SPECIMEN Ordering Facility: [facility] Address: [address] [place] [address] Performed By: #### I FESC #### [facility] CLIA [id number] [address] [place] [address] OF [facility] STAFF REVIEW (MPA) Reviewed by Beatriz Estes M.D., Ph.D Normal [facility] Comment on above: Order Comment: Liza granados Type: BLOOD SPECIMEN Ordering Facility: [facility] Address: [address] [place] [address] Performed By: #### I FESC #### [facility] CLIA [id number] [address] [place], [place] [id number] [place] KAPPA/ZIMMERMAN,FREE,SERon 2024 Immunoglobulin light chains.kappa.free (S) [Mass/Vol] 20.0 mg/L High 3.3-19.4 [facility] Comment on above: Order Comment: Speci roberta Type: BLOOD SPECIMEN Ordering Facility: [facility] Address: [address] [place] [address] Result Comment: Rare ly, increased serum free light chains levels may not be detected or accurately quantified due to prozone phenomenon or in high viscosity samples using this immunoturbidimetric assay. Correlation with other laboratory results and clinical findings is recommended. The [place] Free Light Chain was performed using the Binding Site Optilite immunoturbidimetric method. Result obtained with different assay methods or kits cannot be used interchangeably. Performed By: #### K LFRS #### [facility] CLIA [id number] [address] [place] [address] [place] Immunoglobulin light chains.kappa/Immunoglobu lacey light chains.lambda (S) [Mass ratio] 0.16 Low 0.26-1.65 [facility] Comment on above: Order Comment: Specmiguel granados Type: BLOOD SPECIMEN Ordering Facility: [facility] Address: [address] [place] [address] Performed By: #### K LFRS #### [facility] CLIA [id number] [address] [place] [address] [place] Immunoglobulin light chains.lambda.free [Mass/Vol] 121.8 mg/L High 5.7-26.3 [facility] Comment on above: Order Comment: Liza granados Type: BLOOD SPECIMEN Ordering Facility: [facility] Address: [address] [place] [address] Result Comment: Rare ly, increased serum free [...] interchangeably. Performed By: #### K LFRS #### [facility] CLIA [id number] [address] [place] [address] [place] Methylmalonate SerPl-sCncon 07-29-2024 Methylmalonate [Moles/Vol] 0.18 umol/L Normal <=0.40 [facility] Comment on above: Order Comment: Liza granados Type: BLOOD SPECIMEN Ordering Facility: [facility] Address: [address] [place] [address] Result Comment: This test was developed, and its performance characteristics determined by the [facility] Department of Pathology and Laboratory Medicine. It has not been cleared or approved by the FDA. The [facility] Department of Pathology and Laboratory Medicine is regulated under CLIA as qualified to perform high-complexity testing. This test is used for clinical purposes. It should not be regarded as investigational or for research. Performed By: #### 1 3964-2 #### [facility] CLIA [id number] [address] [place] [address] [place] VITAMIN B1 (THIAMINE), WHOLE BLOODon 07-29-2024 Thiamine (Bld) [Moles/Vol] 118.7 nmol/L Normal 84.3-213.3 [facility] Comment on above: Order Comment: Liza granados Type: BLOOD SPECIMEN Ordering Facility: [facility] Address: [address] [place] [address] Result Comment: This assay measures the concentration of thiamine diphosphate (TDP), the primary active form of vitamin B1. Approximately 90 percent of vitamin B1 present in whole blood is TDP. Thiamine and thiamine monophosphate, which comprise the remaining 10 percent, are not measured. This test was developed, and its performance characteristics determined by the [facility] Department of Pathology and Laboratory Medicine. It has not been cleared or approved by the FDA. The [facility] Department of Pathology and Laboratory Medicine is regulated under CLIA as qualified to perform high-complexity testing. This test is used for clinical purposes. It should not be regarded as investigational or for research. Performed By: #### B 1WB #### [facility] CLIA [id number] [address] [place] [address] [place] Vit B12 SerPl-mCncon 025 Cobalamin (Vitamin B12) [Mass/Vol] 876 pg/mL Normal 232-1245 [facility] Comment on above: Order Comment: Speci men Type: BLOOD SPECIMEN Ordering Facility: [facility] Address: [address] [place] [address] Performed By: #### 2 284-8, 2132-9 #### [facility] CLIA [id number] [address] [place] [address] CNOVon 06-28-2024 CNOV Office Visit (NRMDN) MONISHA COHN ([id number]) 1940 F Date Time Provider Department 06/28/24 8:00 AM EM FLYNN NRHANH During your visit today, we recorded the following information about you: Pulse Blood pressure Weight Height 76/minute 112/74 70.5 kg 1.575 m Em Flynn APRN.CNP 06/28/2024 11:22 PM Signed [facility] - FOLLOW UP EVALUATION The patient consented to the use of ambient [employer] software for draft documentation of the visit consistent with [facility]?s Notice of Privacy Practices. Alexandra Arreguin APRN.SCHOOL ADMISSIONS REPRESENTATIVE [address] [address] Dear Alexandra Arreguin APRN.SCHOOL ADMISSIONS REPRESENTATIVE: I had the pleasure of seeing Ms. [...] directives (living will and durable power of commercial real estate attorney for healthcare): By Email: Send your document(s) to [email or web address] as an attachment in either PDF, TIFF, or JPEG format. By Mail: [facility] Information Management, [employer] Advance Directive Processing [email or web address] [place], [place] [address] By In person at any [facility] location Please note: You can use the address or fax number regardless of which [facility] you utilize, and we will make sure [...] she find (more content not included)... Normal [facility] Hepatobilliary Img w/Pharm I nton 06-03-2024 Hepatobilliary Img w/Pharm Int [facility] [address] [place], [place] [address] Hepatobilliary Img w/Pharm Int MR#: [id number] Acct: [id number] Name: MONISHA COHN Rep #: [id number] : 1940 F 84 From: Hong byrne MD PCP: Tressa Rosales Status: REG CLI Study: Hepatobilliary Img w/Pharm Int Date of Exam: 0 06/03/24 Exam# [id number] Ordering Dr: Didi Lujan INSURANCE OFFICE SUPERVISOR N P-C PROCEDURE: HEPATOBILLIARY IMG W/PHARM INT [...] SCAN AND GALLBLADDER EJECTION FRACTION. Reading Location: [place] [address] CC: Didi Lujan; Tressa Rosales Landscape Laborer: Signed Normal [facility] Cardiology Visit Reporton Cardiology Visit Report [facility] [address] [place] [address] OFFICE VISIT Date of Service: 03/16/24 MR#: [id number] Acct: [id number] Name: MONISHA COHN Rep #: [id number] : 1940 Provider: Dr. Danielle Vernon MD Age/Sex: 83/F Location: [facility] Status: Signed HPI HPI History of [...] NIBP Intake Visit Reasons: 6 M FU Human Resources Manager Required: No Accompanied by: Is patient in [...] denosumab 60 mg/mL subcutaneous 60 mg subcut [id number] 03/16/24 03/16/24 History syringe hydroxyzine HCl 25 [...] in the past year?: Yes (Hip Fx) [facility] Medical History Atherosclerotic heart disease of [place] coronary artery without angina pectoris Bladder spasms [...] distress and (more content not included)... Normal [facility] Large Joint Arthro/Inj: [...] the patient voiced understanding of these instructions. [facility] XR Shoulder - left 3 Viewson 10-01-2023 IMPRESSION: Degenerative changes with chronic rotator cuff tear. Landscape Laborer: [facility] H[facility]PITALLashay Transcribe Date/Time: Oct 01 2023 6:45A Dictated by : SHENA OAKLEY MD This examination was interpreted and the report reviewed and electronically signed by: SHENA OAKLEY MD on Oct 01 2023 6:46AM EST [facility] * * *Final Report* * * [...] rotator cuff tear. No fracture or dislocation. [facility] Provider, [facility] - 10/01/2023 * * *Final Report* [...] Degenerative changes with chronic rotator cuff tear. Landscape Laborer: EMMY Transcribe Date/Time: Oct 01 2023 6:45A Dictated by : SHENA OAKLEY MD This examination was interpreted and the report reviewed and electronically signed by: SHENA OAKLEY MD on Oct 01 2023 6:46AM EST [facility] XR Shoulder - left 3 ViewsOr dered By: [facility] Provider on 10-01-2023 [facility] XR SHLDR >/=3V AP/KIERA AP/OTH R [...] Degenerative changes with chronic rotator cuff tear. Landscape Laborer: PSCB Transcribe Date/Time: Oct 01 2023 6:45A Dictated by : SHENA OAKLEY MD This examination was interpreted and the report reviewed and electronically signed by: SHENA OAKLEY MD on Oct 01 2023 6:46AM EST [id number] [facility] XR Shoulder - left 3 Viewson 09-29-2023 Radiology Study observation (narrative) [facility] W [facility] PAUL LTon 024 [facility] DIAG W JOHN PAUL LT * * *Final Report* * * DATE OF EXAM: Sep 23 2023 9:39AM JOSÉ LUIS 0628 - [facility] DIAG W JOHN PAUL LT / PROCEDURE REASON: R92.2 INCONCLUSIVE MAMMOGRAM * * * * Physician Interpretation * * * * #[id number] - [facility] DIAG W JOHN PAUL LT #[id number] - [facility] BREAST LTD LT UNILATERAL LEFT DIGITAL [...] Health, Family Medicine, and Medical/Surgical Oncology, the [facility] has carefully reviewed the data and [...] their providers when to stop screening mammograms. Rotary Drum Tanner(s): Rafia Wagner RT(R)(M), [facility]; RT Nicole(R), [facility] OVERALL STUDY BIRADS: 2 Benign finding Landscape Laborer: Gi Transcribe Date/Time: Sep 23 2023 9:21A Dictated by : AJAY BULLOCK MD This examination was interpreted and the report reviewed and electronically signed by: AJAY BULLOCK MD on Sep 23 2023 10:55AM EST [id number] Normal [facility] US BREAST LTD LTon 09-22 [facility] BREAST LTD LT * * *Final Report* * * DATE OF EXAM: Sep 23 2023 10:32AM JASPREET 0593 - [facility] [place] BREAST LTD LT / PROCEDURE REASON: Abnormal mammogram * * * * Physician Interpretation * * * * #[id number] - [facility] DIAG W JOHN PAUL LT #[id number] - [facility] [place] BREAST LTD LT UNILATERAL LEFT DIGITAL DIAGNOSTIC [...] made to exam dated: 08/13/2023 mammogram - [facility]. The left breast is almost [...] made to exam dated: 08/13/2023 mammogram - [facility]. Ultrasound of was performed. Imaging [...] mammogram screening schedule is recommended. Ajay BENITEZ, [facility]/gi:09/23/2023 10:55:35 Multiple national specialty organizations have released breast cancer screening guidelines for women at average risk for developing breast cancer - guidelines that are based on both evidence and opinion, yet differ on when to start and how often to screen for breast cancer. With representation from Breast Imaging, Internal Medicine, Women's Health, Family Medicine, and Medical/Surgical Oncology, the [facility] has carefully reviewed the data and [...] their providers when to stop screening mammograms. Rotary Drum Tanner(s): Rafia Wagner RT(R)(M), [facility]; RT Nicole(R), [facility] OVERALL STUDY BIRADS: 2 Benign finding Landscape Laborer: Gi Transcribe Date/Time: Sep 23 2023 9:21A Dictated by : AJAY BULLOCK MD This examination was interpreted and the report reviewed and electronically signed by: AJAY BULLOCK MD on Sep 23 2023 10:55AM EST [id number] Normal [facility] US Breast - left limitedon 0 09-23-2023 * * *Final Report* * * DATE OF EXAM: Sep 23 2023 10:32AM JASPREET 0593 - [facility] [place] BREAST LTD LT / PROCEDURE REASON: Abnormal mammogram * * * * Physician Interpretation * * * * #[id number] - [facility] DIAG W JOHN PAUL LT #[id number] - [facility] US BREAST LTD LT UNILATERAL LEFT [...] made to exam dated: 08/13/2023 mammogram - [facility]. The left breast is almost [...] other findings are seen in the breast. [facility] Provider, Marko Luther [facility] - 09/23/2023 * * *Final Report* * * DATE OF EXAM: Sep 23 2023 10:32AM JASPREET 0593 - [facility] [employer] LTD LT / PROCEDURE REASON: Abnormal mammogram * * * * Physician Interpretation * * * * #[id number] - [facility] DIAG W JOHN PAUL LT #[id number] - [facility] [place] BREAST LTD LT UNILATERAL LEFT DIGITAL DIAGNOSTIC [...] schedule is recommended. Ajay Bullock M.D. FACR, [facility]/gi:09/23/2023 10:55:35 Multiple national specialty organizations have released breast cancer screening guidelines for women at average risk for developing breast cancer - guidelines that are based on both evidence and opinion, yet differ on when to start and how often to screen for breast cancer. With representation from Breast Imaging, Internal Medicine, Women's Health, Family Medicine, and Medical/Surgical Oncology, the [facility] has carefully reviewed the data and [...] their providers when to stop screening mammograms. Rotary Drum Tanner(s): RT Yumiko(R)(M), [facility]; RT Nicole(R), [facility] OVERALL STUDY BIRADS: 2 Benign finding Landscape Laborer: Gi Transcribe Date/Time: Sep 23 2023 9:21A Dictated by : AJAY BULLOCK MD This examination was interpreted and the report reviewed and electronically signed by: AJAY BULLOCK MD on Sep 23 2023 10:55AM EST [facility] Radiology Study observation (narrative) [facility] US Breast - left limitedOrde red By: [facility] Provider on 09-23-2023 [facility] BD DXA - AXIAL SKELETONon BD [...] years, Gender: Female SCANNER INFORMATION: DXA Model: Intiza [id number] Date Scanned: 08/13/2023 2:25 PM CLINICAL HISTORY: [...] had a previous bone density in the [facility] or the previous bone density was performed on a different DXA machine (new, updated model or different location) within the [facility]. VERTEBRAL FRACTURE ASSESSMENT Not performed. TRABECULAR [...] FOR MORE INFORMATION ABOUT DIAGNOSIS AND TREATMENT: [facility] [place] [facility]osis and Metabolic Bone Disease:? www.ccf.org/arthritis/ osteo National Osteoporosis Foundation:? www.nof.org International Society of Clinical Densitometry www.iscd.org Landscape Laborer: EMMY Transcribe Date/Time: Aug 14 2023 8:30A Dictated by : SHENA OAKLEY MD This examination was interpreted and the report reviewed and electronically signed by: SHENA OAKLEY MD on Aug 14 2023 8:31AM EST [id number] -3.1 Normal [facility] SCREENINGon 08-13-2023 [facility] SCREENING * * *Final Report* * * DATE OF EXAM: Aug 13 2023 2:10PM JOSÉ LUIS 0581 - [facility] SCREENING / PROCEDURE REASON: Z12.31 SCREENING MAMMOGRAM * * * * Physician Interpretation * * * * #[id number] - [facility] SCREENING BILATERAL DIGITAL SCREENING MAMMOGRAM WITH [...] possible ultrasound are recommended. Jayleen spears/gi:08/14/2023 11:00:52 Rotary Drum Tanner(s): RT Maribel(Carla)(M), [facility] letter sent: Additional Imaging Needed Mammogram BI-RADS: 0 Incomplete: needs additional imaging evaluation If this report indicates you need additional imaging, and it has NOT yet been performed, please call , to schedule. We sincerely thank you for choosing the [facility] for your breast imaging needs. Multiple [...] Health, Family Medicine, and Medical/Surgical Oncology, the [facility] has carefully reviewed the data and [...] their providers when to stop screening mammograms. Landscape Laborer: Gi Transcribe Date/Time: Aug 13 2023 1:56P Dictated by : JAYLEEN CASTELLANOS MD This examination was interpreted and the report reviewed and electronically signed by: JAYLEEN CASTELLANOS MD on Aug 14 2023 11:00AM EST [id number] [facility] MR Cervical spine WO contras ton 07-29-2023 [facility] Absolute lymphocyte countOrd ered By: Law Gold on 05-01-2023 Lymphocytes Auto (Unsp spec) [#/Vol] 1.22 10*3/uL 0.83-4.51 [facility] Activated partial thrombopla stin time (aPTT) in platelet poor plasma by coagulation aOrdered By: Law Gold on 05-01-2023 aPTT Coag (PPP) [Time] 23.0 s 24.1-36.2 [facility] Automated lymphocyte count a s percentage of total leukocytesOrdered By: Law Gold on 05-01-2023 Lymphocytes/100 WBC Auto (Unsp spec) 19.9 % 19-41 [facility] Basophil percentageOrdered B y: Law Gold on 05-01-2023 Basophils/100 WBC (Bld) 0.8 % 0-1 [facility] Chloride [Moles/Vol] 106 mmol/L 98-107 [facility] Eosinophils/100 WBC (Bld) 5.2 % 0-5 [facility] Glucose [Mass/Vol] 87 mg/dL 74-106 [facility] Hemoglobin (Bld) [Mass/Vol] 10.7 g/dL 12.0-15.0 [facility] Monocytes/100 WBC (Bld) 11.6 % 0-10 [facility] Neutrophils (Bld) [#/Vol] 3.8 10*3/uL 2.0-7.7 [facility] Neutrophils/100 WBC (Bld) 62.2 % 47-70 [facility] Potassium [Moles/Vol] 4.4 mmol/L 3.5-5.1 [facility] Sodium [Moles/Vol] 139 mmol/L 136-145 [facility] WBC (Bld) [#/Vol] 6.1 10*3/uL 4.4-11.0 [facility] Determination of erythrocyte mean corpuscular volume (MCV)Ordered By: Law Gold on 05-01-2023 MCV (RBC) [Entitic vol] 90.3 fL 81-99 [facility] Erythrocyte distribution wid th ratioOrdered By: Law Gold on 05-01-2023 Erythrocyte distribution width (RBC) [Ratio] 13.2 % 11.6-14.6 [facility] Erythrocyte distribution wid th standard deviationOrdered By: Law Gold on 05-01-2023 Erythrocyte distribution width (RBC) [Entitic vol] 43.1 fL 35.1-43.9 [facility] Hematocrit Auto (Bld) [Volum e fraction]Ordered By: Law Gold on 05-01-2023 Hematocrit (Bld) [Volume fraction] 34.3 % 37-47 [facility] Immature granulocytes/100 WB C Auto (Bld)Ordered By: Law Gold on 05-01-2023 Immature granulocytes/100 WBC (Bld) 0.300 % 0.0-0.9 [facility] Comment on above: IG% - Immature Granu locytes (promyelocytes, myelocytes and metamyelocytes) > 1% indicates that a LEFT SHIFT is Present. International normalized rat io (INR) calculationOrdered By: Law Gold on 05-01-2023 INR Coag (PPP) [Relative time] 1.3 {INR} [facility] Laboratory - Chemistry and C hemistry - challengeOrdered By: Law Gold on 05-01-2023 CO2 [Moles/Vol] 28.0 mmol/L 21.0-32.0 [facility] Urea nitrogen/Creatinine [Mass ratio] 18.9 mg/mg 10-20 [facility] Laboratory - CoagulationOrde red By: Law Gold on 05-01-2023 PT Coag (PPP) [Time] 16.1 s 11.7-14.9 [facility] Laboratory - Hematology and Cell countsOrdered By: Law Gold on 05-01-2023 MCH (RBC) [Entitic mass] 28.2 pg 27.0-32.0 [facility] MCHC (RBC) [Mass/Vol] 31.2 g/dL 32-36 [facility] Nucleated RBC/100 WBC (Bld) [Ratio] 0 % 0-5 [facility] Platelets (Bld) [#/Vol] 311 10*3/uL 150-450 [facility] No Panel InformationOrdered By: Law Gold on 05-01-2023 Estimated Creatinine Clearance Calc 51.35 ml/min [facility] Estimated GFR (MDRD) Amer 89 mL/min >60 [facility] Comment on above: GFR Calc Estimated GFR (MDRD) Non-Af Amer 74 mL/min >60 [facility] Comment on above: Non- GFR Calc Platelet mean volume [place] (Bld) [Entitic vol]Ordered By: Law Gold on 05-01-2023 Platelet mean volume (Bld) [Entitic vol] 8.4 fL 6.2-12.0 [facility] RBC Auto (Bld) [#/Vol]Ordere d By: Law Gold on 05-01-2023 RBC (Bld) [#/Vol] 3.80 10*6/uL 4.2-5.4 [facility] Serum or plasma calcium taylor urement (mass/volume)Ordered By: Law Gold on 05-01-2023 Calcium [Mass/Vol] 8.9 mg/dL 8.5-10.1 [facility] Serum or plasma creatinine m easurement (mass/volume)Ordered By: Law Gold on 05-01-2023 Creatinine [Mass/Vol] 0.79 mg/dL 0.55-1.02 [facility] Comment on above: The validity of the calculated GFR & GFRAA in patients over 70 years has not been determined. Clinical correlation is essential. Serum or plasma urea nitroge n measurement (mass/volume)Ordered By: Law Gold on 05-01-2023 Urea nitrogen [Mass/Vol] 15 mg/dL 7-18 [facility] Thin prep Papanicolaou smear with manual screeningOrdered By: Law Gold on 05-01-2023 Thin prep Papanicolaou smear with manual screening 5 5-15 [facility] Absolute lymphocyte countOrd ered By: Darline Lundy on 02-06-2023 Lymphocytes Auto (Unsp spec) [#/Vol] 2.15 10*3/uL 0.83-4.51 [facility] Basophil percentageOrdered B y: Darline Lundy on 02-06-2023 Basophils/100 WBC (Bld) 0.4 % 0-1 [facility] Chloride [Moles/Vol] 108 mmol/L 98-107 [facility] Eosinophils/100 WBC (Bld) 2.6 % 0-5 [facility] Glucose [Mass/Vol] 90 mg/dL 74-106 [facility] Neutrophils (Bld) [#/Vol] 3.9 10*3/uL 2.0-7.7 [facility] Neutrophils/100 WBC (Bld) 55.6 % 47-70 [facility] Potassium [Moles/Vol] 4.2 mmol/L 3.5-5.1 [facility] Sodium [Moles/Vol] 140 mmol/L 136-145 [facility] WBC (Bld) [#/Vol] 7.0 10*3/uL 4.4-11.0 [facility] Blood erythrocytes count (nu mber/volume)Ordered By: Darline Lundy on 02-06-2023 RBC (Bld) [#/Vol] 2.47 10*6/uL 4.2-5.4 [facility] Blood hemoglobin measurement (mass/volume)Ordered By: Darline Lundy on 02-06-2023 Hemoglobin (Bld) [Mass/Vol] 7.8 g/dL 12.0-15.0 [facility] Blood lymphocytes/100 leukoc ytesOrdered By: Darline Lundy on 02-06-2023 Lymphocytes/100 WBC (Bld) 30.5 % 19-41 [facility] Blood monocytes/100 leukocyt esOrdered By: Darline Lundy on 02-06-2023 Monocytes/100 WBC (Bld) 10.2 % 0-10 [facility] Blood platelet mean volumeOr dered By: Darline Lundy on 02-06-2023 Platelet mean volume (Bld) [Entitic vol] 8.9 fL 6.2-12.0 [facility] COVID-19 virus antigen assay Ordered By: Darline Lundy on 02-06-2023 SARS-CoV-2 (COVID-19) Ag IA.rapid Ql (Resp) [facility] SARS-CoV-2 (COVID-19) Ag IA.rapid Ql (Resp) [facility] Determination of erythrocyte mean corpuscular volume (MCV)Ordered By: Darline Lundy on 02-06-2023 MCV (RBC) [Entitic vol] 90.7 fL 81-99 [facility] Hematocrit Auto (Bld) [Volum e fraction]Ordered By: Darline Lundy on 02-06-2023 Hematocrit (Bld) [Volume fraction] 22.4 % 37-47 [facility] Laboratory - Chemistry and C hemistry - challengeOrdered By: Darline Lundy on 02-06-2023 CO2 [Moles/Vol] 29.0 mmol/L 21.0-32.0 [facility] Urea nitrogen/Creatinine [Mass ratio] 25.2 mg/mg 10-20 [facility] Laboratory - Hematology and Cell countsOrdered By: Darline Lundy on 02-06-2023 Erythrocyte distribution width (RBC) [Entitic vol] 45.7 fL 35.1-43.9 [facility] Erythrocyte distribution width (RBC) [Ratio] 14.2 % 11.6-14.6 [facility] Immature granulocytes/100 WBC (Bld) 0.700 % 0.0-0.9 [facility] Comment on above: IG% - Immature Granu locytes (promyelocytes, myelocytes and metamyelocytes) > 1% indicates that a LEFT SHIFT is Present. MCH (RBC) [Entitic mass] 28.7 pg 27.0-32.0 [facility] Nucleated RBC/100 WBC (Bld) [Ratio] 0 % 0-5 [facility] MCHC Auto (RBC) [Mass/Vol]Or dered By: Darline Lundy on 02-06-2023 MCHC (RBC) [Mass/Vol] 31.7 g/dL 32-36 [facility] Comment on above: Delta: 33.5 on 02/0540 No Panel InformationOrdered By: Darline Lundy on 02-06-2023 Estimated Creatinine Clearance Calc 34.90 ml/min [facility] Estimated GFR (MDRD) Amer 115 mL/min >60 [facility] Comment on above: GFR Calc Estimated GFR (MDRD) Non-Af Amer 95 mL/min >60 [facility] Comment on above: Non- GFR Calc Platelets bldOrdered By: Maribeth Lundy on 02-06-2023 Platelets (Bld) [#/Vol] 227 10*3/uL 150-450 [facility] Serum or plasma calcium taylor urement (mass/volume)Ordered By: Darline Lundy on 02-06-2023 Calcium [Mass/Vol] 7.9 mg/dL 8.5-10.1 [facility] Serum or plasma creatinine m easurement (mass/volume)Ordered By: Darline Lundy on 02-06-2023 Creatinine [Mass/Vol] 0.64 mg/dL 0.55-1.02 [facility] Comment on above: The validity of the calculated GFR & GFRAA in patients over 70 years has not been determined. Clinical correlation is essential. Serum or plasma urea nitroge n measurement (mass/volume)Ordered By: Darline Lundy on 02-06-2023 Urea nitrogen [Mass/Vol] 16 mg/dL 7-18 [facility] Thin prep Papanicolaou smear with manual screeningOrdered By: Darline Lundy on 02-06-2023 Thin prep Papanicolaou smear with manual screening 3 5-15 [facility] Blood manual differential co mment interpretation (narrative result)Ordered By: Darline Lundy on 02-03-2023 Manual differential comment Enrique (Bld) [Interp] SCANNED [facility] Hypochromatic red blood cell detectionOrdered By: Darline Lundy on 02-03-2023 Hypochromia Ql (Bld) 1+ [facility] Review by pathologistOrdered By: Darline Lundy on 02-03-2023 Pathologist review Enrique (Unsp spec) [Interp] Reviewed [facility] Comment on above: Previous reported re sult: Francine keating Edited by: RGOOD on 02/03/23:1313Severe Normocytic anemia.Clinical correlation necessary.Lucas Smith M.D. 02/03/23 AMENDED REPORT 02/03/23 131 PATH REV previously reported as: Francine keating Basophil percentageOrdered B y: Jasmin Steele on 02-02-2023 Bilirubin [Mass/Vol] 1.10 mg/dL 0.20-1.00 [facility] Comment on above: For patients on eltr ombopag therapy, use of Dimension [place] TBIL is not recommended. Protein [Mass/Vol] 5.6 g/dL 6.4-8.2 [facility] Laboratory - Chemistry and C hemistry - challengeOrdered By: Jasmin Steele on 02-02-2023 ALP [Catalytic activity/Vol] 51 U/L 45-117 [facility] ALT [Catalytic activity/Vol] 7 U/L 13-56 [facility] Globulin (S) [Mass/Vol] 2.8 g/dL 2.2-4.2 [facility] No Panel InformationOrdered By: Davian Grier on 02-02-2023 Vitamin D 25-Hydroxy 34.0 ng/mL [facility] Comment on above: Vitamin D 25(OH) Sta tus Range Deficiency <20 ng/mL (50nmol/L) Insufficiency 20 - 30 ng/mL (50 - 75 nmol/L) Sufficiency 30 - 100 ng/mL (75 - 250 nmol/L) Toxicity >100 ng/mL (>250 nmol/L) Serum or plasma albumin taylor urement (mass/volume)Ordered By: Jasmin Steele on 02-02-2023 Albumin [Mass/Vol] 2.8 g/dL 3.2-5.0 [facility] Serum or plasma albumin/glob ulin mass ratioOrdered By: Jasmin Steele on 02-02-2023 Albumin/Globulin [Mass ratio] 1.0 {ratio} 0.9-2.4 [facility] Thin prep Papanicolaou smear with manual screeningOrdered By: Jasmin Ivette on 02-02-2023 Thin prep Papanicolaou smear with manual screening 16 U/L 15-37 [facility] Absolute lymphocyte countOrd ered By: Niko Lorenz on 02-01-2023 Lymphocytes Auto (Unsp spec) [#/Vol] 1.35 10*3/uL 0.83-4.51 [facility] Basophil percentageOrdered B y: Niko Lorenz on 02-01-2023 Basophils/100 WBC (Bld) 1.0 % 0-1 [facility] Chloride [Moles/Vol] 107 mmol/L 98-107 [facility] Eosinophils/100 WBC (Bld) 1.7 % 0-5 [facility] Glucose [Mass/Vol] 98 mg/dL 74-106 [facility] Neutrophils (Bld) [#/Vol] 2.9 10*3/uL 2.0-7.7 [facility] Neutrophils/100 WBC (Bld) 60.2 % 47-70 [facility] Potassium [Moles/Vol] 4.2 mmol/L 3.5-5.1 [facility] Sodium [Moles/Vol] 141 mmol/L 136-145 [facility] WBC (Bld) [#/Vol] 4.8 10*3/uL 4.4-11.0 [facility] Blood erythrocytes count (nu mber/volume)Ordered By: Niko Lorenz on 02-01-2023 RBC (Bld) [#/Vol] 3.93 10*6/uL 4.2-5.4 [facility] Blood hemoglobin measurement (mass/volume)Ordered By: Niko Lorenz on 02-01-2023 Hemoglobin (Bld) [Mass/Vol] 10.8 g/dL 12.0-15.0 [facility] Blood lymphocytes/100 leukoc ytesOrdered By: Niko Lorenz on 02-01-2023 Lymphocytes/100 WBC (Bld) 28.0 % 19-41 [facility] Blood monocytes/100 leukocyt esOrdered By: Niko Lorenz on 02-01-2023 Monocytes/100 WBC (Bld) 8.9 % 0-10 [facility] Blood platelet mean volumeOr dered By: Niko Lorenz on 02-01-2023 Platelet mean volume (Bld) [Entitic vol] 8.7 fL 6.2-12.0 [facility] Determination of erythrocyte mean corpuscular volume (MCV)Ordered By: Niko Lorenz on 02-01-2023 MCV (RBC) [Entitic vol] 89.6 fL 81-99 [facility] Glucose Glucometer (BldC) [M ass/Vol]Ordered By: Darline Lundy on 02-01-2023 Glucose [Mass/Vol] 99 mg/dL 74-106 [facility] Comment on above: MANAGEMENT OF PATIEN T CARE PER NURSING PROTOCOL Hematocrit Auto (Bld) [Volum e fraction]Ordered By: Niko Lorenz on 02-01-2023 Hematocrit (Bld) [Volume fraction] 35.2 % 37-47 [facility] INR in Blood by Coagulation assayOrdered By: Niko Lorenz on 02-01-2023 INR Coag (Bld) [Relative time] 1.2 {INR} [facility] Laboratory - Chemistry and C hemistry - challengeOrdered By: Niko Lorenz on 02-01-2023 CO2 [Moles/Vol] 30.0 mmol/L 21.0-32.0 [facility] Urea nitrogen/Creatinine [Mass ratio] 18.8 mg/mg 10-20 [facility] Laboratory - Chemistry and C hemistry - challengeOrdered By: Jasmin Steele on 02-01-2023 Natriuretic peptide B (Bld) [Mass/Vol] 145.2 pg/mL 0-100 [facility] Laboratory - CoagulationOrde red By: Niko Lorenz on 02-01-2023 PT Coag (PPP) [Time] 14.8 s 11.7-14.9 [facility] Laboratory - Hematology and Cell countsOrdered By: Niko Lorenz on 02-01-2023 Erythrocyte distribution width (RBC) [Entitic vol] 41.8 fL 35.1-43.9 [facility] Erythrocyte distribution width (RBC) [Ratio] 12.6 % 11.6-14.6 [facility] Immature granulocytes/100 WBC (Bld) 0.200 % 0.0-0.9 [facility] Comment on above: IG% - Immature Granu locytes (promyelocytes, myelocytes and metamyelocytes) > 1% indicates that a LEFT SHIFT is Present. MCH (RBC) [Entitic mass] 27.5 pg 27.0-32.0 [facility] Nucleated RBC/100 WBC (Bld) [Ratio] 0 % 0-5 [facility] MCHC Auto (RBC) [Mass/Vol]Or dered By: Niko Lorenz on 02-01-2023 MCHC (RBC) [Mass/Vol] 30.7 g/dL 32-36 [facility] No Panel InformationOrdered By: Niko Lorenz on 02-01-2023 Estimated Creatinine Clearance Calc 41.05 ml/min [facility] Estimated GFR (MDRD) Amer 83 mL/min >60 [facility] Comment on above: GFR Calc Estimated GFR (MDRD) Non-Af Amer 68 mL/min >60 [facility] Comment on above: Non- GFR Calc Platelets bldOrdered By: Alina Lorenz on 02-01-2023 Platelets (Bld) [#/Vol] 255 10*3/uL 150-450 [facility] Serum or plasma calcium taylor urement (mass/volume)Ordered By: Niko Lorenz on 02-01-2023 Calcium [Mass/Vol] 8.6 mg/dL 8.5-10.1 [facility] Serum or plasma creatinine m easurement (mass/volume)Ordered By: Niko Lorenz on 02-01-2023 Creatinine [Mass/Vol] 0.85 mg/dL 0.55-1.02 [facility] Comment on above: The validity of the calculated GFR & GFRAA in patients over 70 years has not been determined. Clinical correlation is essential. Serum or plasma urea nitroge n measurement (mass/volume)Ordered By: Niko Lorenz on 02-01-2023 Urea nitrogen [Mass/Vol] 16 mg/dL 7-18 [facility] Thin prep Papanicolaou smear with manual screeningOrdered By: Niko Lorenz on 02-01-2023 Thin prep Papanicolaou smear with manual screening 4 5-15 [facility] Basophil percentageOrdered B y: Danielle Saulo on 01-05-2023 Chloride [Moles/Vol] 107 mmol/L 98-107 [facility] Glucose [Mass/Vol] 95 mg/dL 74-106 [facility] Potassium [Moles/Vol] 4.3 mmol/L 3.5-5.1 [facility] Sodium [Moles/Vol] 139 mmol/L 136-145 [facility] Laboratory - Chemistry and C hemistry - challengeOrdered By: Danielle Vernon on 01-05-2023 CO2 [Moles/Vol] 28.0 mmol/L 21.0-32.0 [facility] Urea nitrogen/Creatinine [Mass ratio] 17.8 mg/mg 10-20 [facility] No Panel InformationOrdered By: Danielle Vernon on 01-05-2023 Estimated GFR (MDRD) Amer 68 mL/min >60 [facility] Comment on above: GFR Calc Estimated GFR (MDRD) Non-Af Amer 56 mL/min >60 [facility] Comment on above: Non- GFR Calc Serum or plasma calcium taylor urement (mass/volume)Ordered By: Danielle Vernon on 01-05-2023 Calcium [Mass/Vol] 8.8 mg/dL 8.5-10.1 [facility] Serum or plasma creatinine m easurement (mass/volume)Ordered By: Danielle Vernon on 01-05-2023 Creatinine [Mass/Vol] 1.01 mg/dL 0.55-1.02 [facility] Comment on above: The validity of the calculated GFR & GFRAA in patients over 70 years has not been determined. Clinical correlation is essential. Serum or plasma urea nitroge n measurement (mass/volume)Ordered By: Danielle Vernon on 01-05-2023 Urea nitrogen [Mass/Vol] 18 mg/dL 7-18 [facility] Thin prep Papanicolaou smear with manual screeningOrdered By: Danielle Vernon on 01-05-2023 Thin prep Papanicolaou smear with manual screening 4 5-15 [facility] Absolute lymphocyte counton 2022 Lymphocytes Auto (Unsp spec) [#/Vol] 1.71 10*3/uL 0.83-4.51 [facility] Work Phone: Basophil percentageon 2021 Basophils/100 WBC (Bld) 0.8 % 0-1 [facility] Work Phone: Bilirubin [Mass/Vol] 0.60 mg/dL 0.20-1.00 [facility] Work Phone: Comment on above: For patients on eltr ombopag therapy, use of Dimension [place] TBIL is not recommended. Chloride [Moles/Vol] 106 mmol/L 98-107 [facility] Work Phone: Cholesterol [Mass/Vol] 171 mg/dL <200 [facility] Work Phone: Comment on above: <200 mg/dL Desirable 200-240 mg/dL Borderline >240 mg/dL High Risk Eosinophils/100 WBC (Bld) 1.8 % 0-5 [facility] Work Phone: Glucose [Mass/Vol] 93 mg/dL 74-106 [facility] Work Phone: Neutrophils (Bld) [#/Vol] 2.5 10*3/uL 2.0-7.7 [facility] Work Phone: Neutrophils/100 WBC (Bld) 51.0 % 47-70 [facility] Work Phone: Potassium [Moles/Vol] 4.6 mmol/L 3.5-5.1 [facility] Work Phone: Protein [Mass/Vol] 7.3 g/dL 6.4-8.2 [facility] Work Phone: Sodium [Moles/Vol] 139 mmol/L 136-145 [facility] Work Phone: Triglyceride [Mass/Vol] 76 mg/dL <199 [facility] Work Phone: Comment on above: The drugs N-Acetylcy steine and Metamizole may falsely depress this assay.Serum Triglycerides Reference Interval Normal <150 mg/dL Borderline high 150 - 199 mg/dL High 200 - 499 mg/dL Very High > or = 500 mg/dL WBC (Bld) [#/Vol] 5.0 10*3/uL 4.4-11.0 [facility] Work Phone: Blood erythrocytes count (nu mber/volume)on 2022 RBC (Bld) [#/Vol] 4.37 10*6/uL 4.2-5.4 [facility] Work [facility]: Blood hemoglobin measurement (mass/volume)on 2022 Hemoglobin (Bld) [Mass/Vol] 11.9 g/dL 12.0-15.0 [facility] Work Phone: Blood lymphocytes/100 leukoc yteson 2022 Lymphocytes/100 WBC (Bld) 34.5 % 19-41 [facility] Work Phone: [phone] Blood monocytes/100 leukocyt eson 2022 Monocytes/100 WBC (Bld) 11.7 % 0-10 [facility] Work Phone: Blood platelet mean volumeon 2022 Platelet mean volume (Bld) [Entitic vol] 9.1 fL 6.2-12.0 [facility] Work Phone: Determination of erythrocyte mean corpuscular volume (MCV)on 2022 MCV (RBC) [Entitic vol] 88.3 fL 81-99 [facility] Work Phone: [phone] Hematocrit Auto (Bld) [Volum e fraction]on 2022 Hematocrit (Bld) [Volume fraction] 38.6 % 37-47 [facility] Work Phone: Laboratory - Chemistry and C hemistry - challengeon 2022 ALP [Catalytic activity/Vol] 71 U/L 45-117 [facility] Work Phone: ALT [Catalytic activity/Vol] 16 U/L 13-56 [facility] Work Phone: [phone] CO2 [Moles/Vol] 28.0 mmol/L 21.0-32.0 [facility] Work Phone: Globulin (S) [Mass/Vol] 3.6 g/dL 2.2-4.2 [facility] Work Phone: Urea nitrogen/Creatinine [Mass ratio] 22.8 mg/mg 10-20 [facility] Work Phone: Bilirubin Ql (U) Small (1+) [facility] [facility] Work Phone: [phone] Glucose Ql (U) Negative [facility] Work Phone: [phone] Ketones Ql (U) Small (15+) [facility] Work Phone: [phone] pH (U) 6.5 [pH] [facility] Work Phone: [phone] Specific gravity (U) [Rel density] 1.025 [facility] Work Phone: [phone] Urobilinogen (U) [Mass/Vol] 1 mg/dL [facility] Work Phone: [phone] Laboratory - Hematology and Cell countson 2022 Erythrocyte distribution width (RBC) [Entitic vol] 41.6 fL 35.1-43.9 [facility] Work Phone: Erythrocyte distribution width (RBC) [Ratio] 12.7 % 11.6-14.6 [facility] Work Phone: Immature granulocytes/100 WBC (Bld) 0.200 % 0.0-0.9 [facility] Work Phone: Comment on above: IG% - Immature Granu locytes (promyelocytes, myelocytes and metamyelocytes) > 1% indicates that a LEFT SHIFT is Present. MCH (RBC) [Entitic mass] 27.2 pg 27.0-32.0 [facility] Work Phone: Nucleated RBC/100 WBC (Bld) [Ratio] 0 % 0-5 [facility] Work Phone: Hemoglobin Ql (U) Negative [facility] Work Phone: Laboratory - Specimen inform ationon 2022 Clarity (U) Clear [facility] Work Phone: Color (U) STRAW [facility] Work Phone: Laboratory - Urinalysison Nitrite Ql (U) Negative [facility] Work Phone: Protein Ql (U) Trace [facility] Work Phone: [phone] MCHC Auto (RBC) [Mass/Vol]on 2022 MCHC (RBC) [Mass/Vol] 30.8 g/dL 32-36 [facility] Work Phone: No Panel Informationon 03-26 Estimated GFR (MDRD) Amer 68 mL/min >60 [facility] Work Phone: Comment on above: GFR Calc Estimated GFR (MDRD) Non-Af Amer 56 mL/min >60 [facility] Work Phone: Comment on above: Non- GFR Calc Thyroid Stimulating Hormone (TSH) 2.51 uIU/mL 0.358-3.74 [facility] Work Phone: Urine Leukocytes Negatve [facility] Work Phone: Urine Non-Hemolyzed Blood [facility] Work Phone: Platelets bldon 2022 Platelets (Bld) [#/Vol] 311 10*3/uL 150-450 [facility] Work Phone: Serum or plasma albumin taylor urement (mass/volume)on 2022 Albumin [Mass/Vol] 3.7 g/dL 3.2-5.0 [facility] Work Phone: [phone] Serum or plasma albumin/glob ulin mass ratioon 2022 Albumin/Globulin [Mass ratio] 1.0 {ratio} 0.9-2.4 [facility] Work Phone: Serum or plasma calcium taylor urement (mass/volume)on 2022 Calcium [Mass/Vol] 9.0 mg/dL 8.5-10.1 [facility] Work Phone: Serum or plasma cholesterol in HDL measurement (mass/volume)on 2022 Cholesterol in HDL [Mass/Vol] 100 mg/dL >40 [facility] Work Phone: Comment on above: The drugs N-Acetylcy steine and Metamizole may falsely depress this assay. Reference Range HDL <40 mg/dL Low HDL Cholesterol HDL >or= 60 mg/dL High HDL Cholesterol Serum or plasma cholesterol in VLDL measurement (mass/volume)on 2022 Cholesterol in VLDL [Mass/Vol] 15 mg/dL 5-40 [facility] Work Phone: Serum or plasma creatinine m easurement (mass/volume)on 2022 Creatinine [Mass/Vol] 1.01 mg/dL 0.55-1.02 [facility] Work Phone: Comment on above: The validity of the calculated GFR & GFRAA in patients over 70 years has not been determined. Clinical correlation is essential. Serum or plasma low density lipoprotein (LDL) cholesterol measurement (mass/volume)on 2022 Cholesterol in LDL [Mass/Vol] 56 mg/dL 0-130 [facility] Work Phone: Serum or plasma urea nitroge n measurement (mass/volume)on 2022 Urea nitrogen [Mass/Vol] 23 mg/dL 7-18 [facility] Work Phone: Serum or plasma uric acid me asurement (mass/volume)on 2022 Urate [Mass/Vol] 3.8 mg/dL 2.6-6.0 [facility] Work Phone: Comment on above: The drugs N-Acetylcy steine and Metamizole may falsely depress this assay. Thin prep Papanicolaou smear with manual screeningon 2022 Thin prep Papanicolaou smear with manual screening 27 U/L 15-37 [facility] Work Phone: Thin prep Papanicolaou smear with manual screening 5 5-15 [facility] Work Phone: [phone] Vital Signs Date Time Vital Sign Value Performing Clinician Faci lity 01-25-2025 10:36-0400 Body temperature 98.4 [degF] [facility] 01-25-2025 10:36-0400 Diastolic blood pressure 52 mm[Hg] [facility] 01-25-2025 10:36-0400 Heart rate 83 /[facility] 01-25-2025 10:36-0400 Respiratory rate 16 /min [facility] 01-25-2025 10:36-0400 SaO2% (BldA) [Mass fraction] 98 % [facility] 01-25-2025 10:36-0400 Systolic blood pressure 113 mm[Hg] [facility] 01-25-2025 06:00-0400 Body mass index (BMI) [Ratio] 30.7 kg/m2 [facility] 01-25-2025 06:00-0400 Body weight 75.7 kg [facility] 01-22-2025 08:05-0400 Inhaled oxygen flow rate 2 L/min [facility] 01-20-2025 11:58-0400 Body height 157 cm [facility] 12-28-2024 13:11-0400 Body height 157.48 cm [facility] 12-28-2024 13:11-0400 Body mass index (BMI) [Ratio] 29.4 kg/m2 [facility] 12-28-2024 13:11-0400 Body weight 73.02 kg [facility] 12-28-2024 13:11-0400 Diastolic blood pressure 60 mm[Hg] [facility] 12-28-2024 13:11-0400 Heart rate 83 /min Tressa Bobby [facility] 12-28-2024 13:11-0400 Systolic blood pressure 115 mm[Hg] Tressa [facility] 09-27-2024 08:22-0400 Body height 157.48 cm Didi Tai INSURANCE OFFICE SUPERVISOR-C Work Phone: [facility] 09-27-2024 08:22-0400 Body mass index (BMI) [Ratio] 29.4 kg/m2 Didi Lujan INSURANCE OFFICE SUPERVISOR-C Work Phone: [facility] 09-27-2024 08:22-0400 Body weight 73.02 kg Didi Lujan INSURANCE OFFICE SUPERVISOR-C Work Phone: [facility] 09-27-2024 08:22-0400 Diastolic blood pressure 72 mm[Hg] Didi Lujan INSURANCE OFFICE SUPERVISOR-C Work Phone: [facility] 09-27-2024 08:22-0400 Heart rate 72 /min Didi Lujan INSURANCE OFFICE SUPERVISOR-C Work Phone: [facility] 09-27-2024 08:22-0400 Respiratory rate 16 /min Didi Lujan INSURANCE OFFICE SUPERVISOR-C Work Phone: [facility] 09-27-2024 08:22-0400 Systolic blood pressure 125 mm[Hg] Didi Lujan INSURANCE OFFICE SUPERVISOR-C Work Phone: [facility] 07-29-2024 14:17-0400 Diastolic blood pressure 65 mm[Hg] Armen Madison MD Work Phone: [facility] 07-29-2024 14:17-0400 Heart rate 68 /min Armen Madison MD Work Phone: [facility] 07-29-2024 14:17-0400 Systolic blood pressure 110 mm[Hg] Armen Madison MD Work Phone: [facility] 06-28-2024 07:42-0400 Body height 157.5 cm Em Sheldon Work Phone: [facility] 06-28-2024 07:42-0400 Body mass index (BMI) [Ratio] 28.42 kg/m2 Em Flynn APRN.SCHOOL ADMISSIONS REPRESENTATIVE Work Phone: [facility] 06-28-2024 07:42-0400 Body weight 70.49 kg Em Flynn APRN.CN P Work Phone: [facility] Comment on above: Per pt. Did not get weighed today 06-28-2024 07:42-0400 Diastolic blood pressure 74 mm[Hg] Em Flynn APRN.SCHOOL ADMISSIONS REPRESENTATIVE Work Phone: [facility] 06-28-2024 07:42-0400 Heart rate 76 /min Em Flynn APRN.CN P Work Phone: [facility] 06-28-2024 07:42-0400 SaO2% (BldA) [Mass fraction] 99 % Em Flynn APRN.SCHOOL ADMISSIONS REPRESENTATIVE Work Phone: [facility] 06-28-2024 07:42-0400 Systolic blood pressure 112 mm[Hg] Em Flynn APRN.SCHOOL ADMISSIONS REPRESENTATIVE Work Phone: [facility] 03-16-2024 08:37-0500 Body height 157.48 cm Alexandra Arreguin INSURANCE OFFICE SUPERVISOR-C Work Phone: [facility] 03-16-2024 08:37-0500 Body mass index (BMI) [Ratio] 28.7 kg/m2 Alexandra Arreguin INSURANCE OFFICE SUPERVISOR-C Work Phone: [facility] 03-16-2024 08:37-0500 Body weight 71.21 kg Alexandra Arreguin INSURANCE OFFICE SUPERVISOR-C Work Phone: [facility] 03-16-2024 08:37-0500 Diastolic blood pressure 62 mm[Hg] Alexandra Arreguin INSURANCE OFFICE SUPERVISOR-C Work Phone: [facility] 03-16-2024 08:37-0500 Heart rate 59 /min Alexandra Arreguin INSURANCE OFFICE SUPERVISOR-C Work Phone: [facility] 03-16-2024 08:37-0500 Respiratory rate 18 /min Alexandra Rodríguez INSURANCE OFFICE SUPERVISOR-C Work Phone: [facility] 03-16-2024 08:37-0500 Systolic blood pressure 97 mm[Hg] Alexandrajenny MccollumArreguin INSURANCE OFFICE SUPERVISOR-C Work Phone: [facility] 12-31-2023 09:11-0400 Body height 157.5 cm Em Flynn APRN.CN P Work Phone: [facility] 12-31-2023 09:11-0400 SaO2% (BldA) [Mass fraction] 99 % Em Flynn APRN.SCHOOL ADMISSIONS REPRESENTATIVE Work Phone: [facility] 09-29-2023 08:59-0400 Body height 157.5 cm Em Flynn APRN.CN P Work Phone: [facility] 09-29-2023 08:59-0400 Body mass index (BMI) [Ratio] 29.81 kg/m2 Em Flynn APRN.SCHOOL ADMISSIONS REPRESENTATIVE Work Phone: [facility] 09-29-2023 08:59-0400 Body weight 73.94 kg Em Flynn APRN.CN P Work Phone: [facility] Comment on above: Per pt. Did not get weighed 09-29-2023 08:59-0400 Diastolic blood pressure 69 mm[Hg] Em Flynn APRN.SCHOOL ADMISSIONS REPRESENTATIVE Work Phone: [facility] 09-29-2023 08:59-0400 Heart rate 58 /min Em Flynn APRN.CN P Work Phone: [facility] 09-29-2023 08:59-0400 SaO2% (BldA) [Mass fraction] 98 % Em Flynn APRN.SCHOOL ADMISSIONS REPRESENTATIVE Work Phone: [facility] 09-29-2023 08:59-0400 Systolic blood pressure 106 mm[Hg] Em Flynn APRN.SCHOOL ADMISSIONS REPRESENTATIVE Work Phone: [facility] 08-27-2023 13:39-0400 Body height 157.5 cm Stephan Sheehan PA-C Work Phone: [facility] 08-27-2023 13:39-0400 Body mass index (BMI) [Ratio] 30.12 kg/m2 Stephan Sheehan PA-C Work Phone: [facility] 08-27-2023 13:39-0400 Body weight 74.7 kg Stephan Sheehan PA-C Work Phone: [facility] 08-27-2023 13:39-0400 Diastolic blood pressure 57 mm[Hg] Stephan Sheehan PA-C Work Phone: [facility] 08-27-2023 13:39-0400 Heart rate 60 /min Stephan Sheehan PA-C Work Phone: [facility] 08-27-2023 13:39-0400 Respiratory rate 18 /min Stephan Sheehan PA-C Work Phone: [facility] 08-27-2023 13:39-0400 SaO2% (BldA) [Mass fraction] 100 % Stephan Sheehan PA-C Work Phone: [facility] 08-27-2023 13:39-0400 Systolic blood pressure 130 mm[Hg] Stephan Sheehan PA-C Work Phone: [facility] 07-06-2023 08:13-0400 Body weight 73.94 kg Em Flynn APRN.CN P Work Phone: [facility] 07-06-2023 08:13-0400 Diastolic blood pressure 82 mm[Hg] Em Flynn APRN.SCHOOL ADMISSIONS REPRESENTATIVE Work Phone: [facility] 07-06-2023 08:13-0400 Heart rate 72 /min Em Flynn APRN.CN P Work Phone: [facility] 07-06-2023 08:13-0400 SaO2% (BldA) [Mass fraction] 99 % Em Flynn APRN.SCHOOL ADMISSIONS REPRESENTATIVE Work Phone: [facility] 07-06-2023 08:13-0400 Systolic blood pressure 128 mm[Hg] Em Flynn APRN.SCHOOL ADMISSIONS REPRESENTATIVE Work Phone: [facility] 05-01-2023 18:05-0500 Diastolic blood pressure 69 mm[Hg] INSURANCE OFFICE SUPERVISOR-C Alexandra Arreguin INSURANCE OFFICE SUPERVISOR Work Phone: [facility] 05-01-2023 18:05-0500 Heart rate 67 /min INSURANCE OFFICE SUPERVISOR-C Alexandra Arreguin INSURANCE OFFICE SUPERVISOR Work Phone: [facility] 05-01-2023 18:05-0500 Respiratory rate 16 /min INSURANCE OFFICE SUPERVISOR-C Aelxandra Arreguin INSURANCE OFFICE SUPERVISOR Work Phone: [facility] 05-01-2023 18:05-0500 SaO2% (BldA) [Mass fraction] 98 % INSURANCE OFFICE SUPERVISOR-C Alexandra Arreguin INSURANCE OFFICE SUPERVISOR Work Phone: [facility] 05-01-2023 18:05-0500 Systolic blood pressure 120 mm[Hg] INSURANCE OFFICE SUPERVISOR-C Alexandra Arreguin INSURANCE OFFICE SUPERVISOR Work Phone: [facility] 05-01-2023 13:26-0500 Body height 157.48 cm INSURANCE OFFICE SUPERVISOR-C Alexandra Arreguin INSURANCE OFFICE SUPERVISOR Work Phone: [facility] 05-01-2023 13:26-0500 Body mass index (BMI) [Ratio] 30.2 kg/m2 INSURANCE OFFICE SUPERVISOR-C Alexandra Arreguin INSURANCE OFFICE SUPERVISOR Work Phone: [facility] 05-01-2023 13:26-0500 Body temperature 98.4 [degF] INSURANCE OFFICE SUPERVISOR-C Alexandra Arreguin INSURANCE OFFICE SUPERVISOR Work Phone: [facility] 05-01-2023 13:26-0500 Body weight 74.84 kg INSURANCE OFFICE SUPERVISOR-C Alexandra Arreguin INSURANCE OFFICE SUPERVISOR Work Phone: [facility] 02-06-2023 13:59-0400 Body temperature 98.6 [degF] INSURANCE OFFICE SUPERVISOR-C Alexandra Arreguin INSURANCE OFFICE SUPERVISOR Work Phone: [facility] 02-06-2023 13:59-0400 Diastolic blood pressure 52 mm[Hg] INSURANCE OFFICE SUPERVISOR-C Alexandra Arreguin INSURANCE OFFICE SUPERVISOR Work Phone: [facility] 02-06-2023 13:59-0400 Heart rate 73 /min INSURANCE OFFICE SUPERVISOR-C Alexandra Arreguin INSURANCE OFFICE SUPERVISOR Work Phone: [facility] 02-06-2023 13:59-0400 Respiratory rate 16 /min INSURANCE OFFICE SUPERVISOR-C Alexandra Arreguin INSURANCE OFFICE SUPERVISOR Work Phone: [phone] [address] 02-06-2023 13:59-0400 SaO2% (BldA) [Mass fraction] 100 % INSURANCE OFFICE SUPERVISOR-C Alexandra Arreguin INSURANCE OFFICE SUPERVISOR Work Phone: [phone] [place] [address] 02-06-2023 13:59-0400 Systolic blood pressure 92 mm[Hg] INSURANCE OFFICE SUPERVISOR-C Alexandra Arreguin INSURANCE OFFICE SUPERVISOR Work Phone: [phone] [place] [address] 02-06-2023 05:46-0400 Body mass index (BMI) [Ratio] 31.1 kg/m2 INSURANCE OFFICE SUPERVISOR-C Alexandra Arreguin INSURANCE OFFICE SUPERVISOR Work Phone: [phone] [place] [address] 02-06-2023 05:46-0400 Body weight 76.6 kg INSURANCE OFFICE SUPERVISOR-C Alexandra Arreguin INSURANCE OFFICE SUPERVISOR Work Phone: [phone] [place] [address] 02-02-2023 11:48-0400 Body height 157.48 cm INSURANCE OFFICE SUPERVISOR-C Alexandra Arreguin INSURANCE OFFICE SUPERVISOR Work Phone: [phone] [address] 02-01-2023 13:44-0400 Body height 157.48 cm INSURANCE OFFICE SUPERVISOR-C Alexandra Arreguin INSURANCE OFFICE SUPERVISOR Work Phone: [phone] [place] [address] 02-01-2023 13:44-0400 Body mass index (BMI) [Ratio] 31.1 kg/m2 INSURANCE OFFICE SUPERVISOR-C Alexandra Arreguin INSURANCE OFFICE SUPERVISOR Work Phone: [phone] [place] [address] 02-01-2023 13:44-0400 Body temperature 98.4 [degF] INSURANCE OFFICE SUPERVISOR-C Alexandra Arreguin INSURANCE OFFICE SUPERVISOR Work Phone: [facility] 02-01-2023 13:44-0400 Body weight 77.1 kg INSURANCE OFFICE SUPERVISOR-C Alexandra Arreguin INSURANCE OFFICE SUPERVISOR Work Phone: [phone] [place] [address] 02-01-2023 13:44-0400 Diastolic blood pressure 79 mm[Hg] INSURANCE OFFICE SUPERVISOR-C Alexandra Arreguin INSURANCE OFFICE SUPERVISOR Work Phone: [facility] 02-01-2023 13:44-0400 Heart rate 77 /min INSURANCE OFFICE SUPERVISOR-C Alexandra Arreguin INSURANCE OFFICE SUPERVISOR Work Phone: [facility] 02-01-2023 13:44-0400 Respiratory rate 20 /min INSURANCE OFFICE SUPERVISOR-C Alexandra Arreguin INSURANCE OFFICE SUPERVISOR Work Phone: [facility] 02-01-2023 13:44-0400 SaO2% (BldA) [Mass fraction] 99 % INSURANCE OFFICE SUPERVISOR-C Alexandra Arreguin INSURANCE OFFICE SUPERVISOR Work Phone: [facility] 02-01-2023 13:44-0400 Systolic blood pressure 165 mm[Hg] INSURANCE OFFICE SUPERVISOR-C Alexandra Arreguin INSURANCE OFFICE SUPERVISOR Work Phone: [facility] 01-20-2023 14:48-0400 Body height 157.5 cm Em Flynn APRN.CN P Work Phone: [facility] 01-20-2023 14:48-0400 Body weight 70.76 kg Em Flynn APRN.CN P Work Phone: [facility] 01-20-2023 14:48-0400 SaO2% (BldA) [Mass fraction] 100 % Em Flynn APRN.SCHOOL ADMISSIONS REPRESENTATIVE Work Phone: [facility] 12-29-2022 13:39-0400 Body mass index (BMI) [Ratio] 28 kg/m2 INSURANCE OFFICE SUPERVISOR-C Alexandra Arreguin INSURANCE OFFICE SUPERVISOR Work Phone: [facility] 12-29-2022 13:39-0400 Body weight 69.39 kg INSURANCE OFFICE SUPERVISOR-C Alexandra Arreguin INSURANCE OFFICE SUPERVISOR Work Phone: [facility] 12-29-2022 13:39-0400 Diastolic blood pressure 78 mm[Hg] INSURANCE OFFICE SUPERVISOR-C Alexandra Arreguin INSURANCE OFFICE SUPERVISOR Work Phone: [facility] 12-29-2022 13:39-0400 Heart rate 60 /min INSURANCE OFFICE SUPERVISOR-C Alexandra Arreguin INSURANCE OFFICE SUPERVISOR Work Phone: [facility] 12-29-2022 13:39-0400 Respiratory rate 16 /min INSURANCE OFFICE SUPERVISOR-C Alexandra Arreguin INSURANCE OFFICE SUPERVISOR Work Phone: [facility] 12-29-2022 13:39-0400 Systolic blood pressure 152 mm[Hg] INSURANCE OFFICE SUPERVISOR-C Alexandra Arreguin INSURANCE OFFICE SUPERVISOR Work Phone: [facility] 10-09-2022 12:48-0400 Body height 157.5 cm Linden Flynn MD Work Phone: [facility] 10-09-2022 12:48-0400 Body weight 68.63 kg Linden Flynn MD Work Phone: [facility] 10-09-2022 12:48-0400 SaO2% (BldA) [Mass fraction] 99 % Linden Flynn MD Work Phone: [facility] 2022 14:59-0500 Body height 157.48 cm [facility] Work Phone: 2022 14:59-0500 Body mass index (BMI) [Ratio] 25.2 kg/m2 [facility] Work Phone: 2022 14:59-0500 Body temperature 97.7 [degF] [facility] Work Phone: 2022 14:59-0500 Body weight 62.59 kg [facility] Work Phone: 2022 14:59-0500 Diastolic blood pressure 70 mm[Hg] [facility] Work Phone: 2022 14:59-0500 Heart rate 138 /min [facility] Work Phone: 2022 14:59-0500 Respiratory rate 18 /min [facility] Work Phone: 2022 14:59-0500 SaO2% (BldA) [Mass fraction] 100 % [facility] Work Phone: 2022 14:59-0500 Systolic blood pressure 130 mm[Hg] [facility] Work Phone: 02-24-2022 16:15-0500 Body mass index (BMI) [Ratio] 25.6 kg/m2 [facility] Work Phone: 02-24-2022 16:15-0500 Body temperature 97.5 [degF] [facility] Work Phone: 02-24-2022 16:15-0500 Body weight 63.5 kg [facility] Work Phone: 02-24-2022 16:15-0500 Diastolic blood pressure 60 mm[Hg] [facility] Work Phone: 02-24-2022 16:15-0500 Heart rate 85 /min [facility] Work Phone: 02-24-2022 16:15-0500 Respiratory rate 18 /min [facility] Work Phone: 02-24-2022 16:15-0500 SaO2% (BldA) [Mass fraction] 100 % [facility] Work Phone: 02-24-2022 16:15-0500 Systolic blood pressure 122 mm[Hg] [facility] Work Phone: Encounters Encounter Date Encounter Type Care Provider Facility Start: 02-15-2025 End: 02-15-20[facility] Start: 01-25-2025 Non-patient / Non-visit Dr. Estella Kelly MD -[facility] Work Phone: Start: 01-24-2025 Non-patient / Non-visit Dr. Estella Kelly MD -[facility] Work Phone: Start: 01-23-2025 Non-patient / Non-visit Dr. Estella Kelly MD -[facility] Work Phone: Start: 01-22-2025 Non-patient / Non-visit Dr. Estella Kelly MD -[facility] Work Phone: Start: 01-21-2025 Non-patient / Non-visit Dr. Estella Kelly MD -[facility] Work Phone: Start: 01-20-2025 Non-patient / Non-visit Dr. Danielle anderson MD -[facility] Work Phone: Start: 01-20-2025 Non-patient / Non-visit Dr. Zeus Martel DO -[facility] Work Phone: Start: 01-20-2025 ambulatory Davian Kelly Fac ility:[facility] Start: 01-20-2025 End: 01-25-2025 Evaluation and management of inpatient Dr. Davian Kelly MD -[facility] Work Phone: Start: 01-19-2025 End: 01-20-2025 Emergency department patient visit ALEXANDRA ARREGUIN Facility:[facility] Start: 12-28-2024 End: 12-28-[address] Alexandria Dejesus MD -[facility] Work Phone: Start: 12-28-2024 End: 12-28-2024 ambulatory Tressa HALL -[facility] Start: 11-07-2024 ambulatory Danielle Vernon Facility:[facility] Start: 11-07-2024 Non-patient / Non-visit Dr. Danielle anderson MD -[facility] Start: 11-03-2024 ambulatory Danielle Vernon Facility:[facility] Start: 11-03-2024 Non-patient / Non-visit Dr. Danielle anderson MD -[facility] Start: 11-03-2024 End: 11-03-2024 ambulatory Tressa HALL -[facility] Start: 11-03-2024 End: 11-03-[address] Danielle Vernno MD -[facility] Work Phone: Start: 11-03-2024 End: 11-03-2024 ambulatory Danielle Vernon Facility:[facility] Start: 09-27-2024 End: 09-27-[address] Danielle Vernon MD -[facility] Work Phone: Start: 09-27-2024 End: 09-27-2024 ambulatory Didi Lujan NP-C Work Phone: [facility] Work Phone: Start: 07-29-2024 End: 07-29-2024 ambulatory ALEXANDRA Anay ARREGUIN Facility:[facility] Start: 07-29-2024 End: 07-29-2024 Office outpatient new 30 minutes Armen Madison MD Work Phone: [facility] Comment on above: Numbness and tinglin g of both feet Start: 07-29-2024 End: 07-29-2024 ambulatory ALEXANDRA Anay ARREGUIN Facility:[facility] Start: 06-28-2024 End: 06-28-2024 ambulatory ALEXANDRA Anay ARREGUIN Facility:[facility] Start: 06-28-2024 End: 06-28-2024 Patient encounter procedure Em Flynn APRN.CNP Work Phone: Neurology Comment on above: Dysphagia, unspecifi ed type (Primary Dx); 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 Danielle Vernon MD -[facility] Work Phone: Start: 03-16-2024 End: 03-16-2024 ambulatory Danielle Vernon Facility:[facility] Start: 12-31-2023 End: 12-31-2023 Patient encounter procedure Em Flynn APRN.SCHOOL ADMISSIONS REPRESENTATIVE Work Phone: Neurology Comment on above: Dysphagia, unspecifi ed type (Primary Dx); Parkinson's disease without dyskinesia or fluctuating manifestations (HCC); Orthostatic hypotension Start: 11-20-2023 Documentation procedure Mammog dae Coordinator [facility] Department Start: 11-20-2023 Letter encounter Mammography Coordinator [facility] Department Start: 11-20-2023 End: 11-20-2023 Subsequent hospital visit by physician Screening Ultrasound Main Work Phone: Mammography Start: 10-21-2023 Telephone encounter Stephan juan PA-C Work Phone: [facility] Comment on above: Certified Scrub Tech - O ther Start: 10-16-2023 Telephone encounter Yury Jasso MD Work Phone: Orthopaedics Comment on above: Patient Update; Radha ent Question; Orders Start: 10-02-2023 End: 10-02-2023 Patient encounter procedure Yury Jasso MD Work Phone: Orthopedics Comment on above: Acute pain of left s moisesulder Start: 09-29-2023 End: 09-29-2023 Patient encounter procedure Em Flynn APRN.SCHOOL ADMISSIONS REPRESENTATIVE Work Phone: Neurology Comment on above: Parkinson's disease without dyskinesia or fluctuating manifestations (HCC) (Primary Dx); Orthostatic hypotension; Hallucinations; Dysphagia, unspecified type Start: 09-29-2023 ambulatory UNKNOWN PROVIDER Facili ty:[facility] Start: 09-29-2023 End: 09-29-2023 Subsequent hospital visit by physician [facility] Work Phone: Radiology Comment on above: Chronic left shoulde r pain [M25.512, G89.29] Start: 09-23-2023 ambulatory DIDI LUJAN Facilit y:[facility] Start: 09-23-2023 End: 09-23-2023 Subsequent hospital visit by physician Screen/Diagnostic Mammo [facility] Work Phone: Mammography Comment on above: Inconclusive mammogr am [R92.2] Start: 09-14-2023 Orders Only Yury Jasso MD Work Phone: Orthopedics Comment on above: Chronic left shoulde r pain (Primary Dx) Start: 09-02-2023 Telephone encounter Stephan juan PA-C Work Phone: [facility] Start: 08-27-2023 End: 08-27-2023 Patient encounter procedure Stephan Sheehan PA-C Work Phone: [facility] Comment on above: Acute pain of left s houlder (Primary Dx); Protrusion of cervical intervertebral disc; Pain in left elbow Start: 08-14-2023 Documentation procedure Mammog dae Coordinator [facility] Department Start: 08-14-2023 Letter encounter Mammography Coordinator [facility] Department Start: 08-13-2023 ambulatory DIDI LUJAN Facilit y:[facility] Start: 08-13-2023 End: 08-13-2023 Subsequent hospital visit by physician Screen/Diagnostic Mammo [facility] Work Phone: Mammography Comment on above: Encounter for screen ing mammogram for malignant neoplasm of breast [Z12.31] Asymptomatic [place] radha state [Z78.0] Start: 08-03-2023 Telephone encounter Em villarreal APRN.SCHOOL ADMISSIONS REPRESENTATIVE Work Phone: Neurology Comment on above: Results Start: 07-29-2023 End: 07-29-2023 Subsequent hospital visit by physician [facility] (1.5t[facility] Start: 07-06-2023 End: 07-06-2023 Patient encounter procedure Em Flynn APRN.SCHOOL ADMISSIONS REPRESENTATIVE Work Phone: Neurology Comment on above: Parkinson's disease without dyskinesia or fluctuating manifestations (HCC) (Primary Dx); Orthostatic hypotension; Dysphagia, unspecified type; Left arm pain; Numbness and tingling in left arm Start: 05-01-2023 End: 05-01-2023 Emergency department patient visit INSURANCE OFFICE SUPERVISOR-C Alexandra Arreguin INSURANCE OFFICE SUPERVISOR [facility] Start: 02-06-2023 Non-patient / Non-visit INSURANCE OFFICE SUPERVISOR-C D ora Arreguin INSURANCE OFFICE SUPERVISOR Work Phone: [facility] Work Phone: Start: 02-05-2023 Non-patient / Non-visit INSURANCE OFFICE SUPERVISOR-C D ora Arreguin INSURANCE OFFICE SUPERVISOR Work Phone: [facility] Work Phone: Start: 02-04-2023 Non-patient / Non-visit INSURANCE OFFICE SUPERVISOR-C D ora Arreguin INSURANCE OFFICE SUPERVISOR Work Phone: [facility] Work Phone: Start: 02-03-2023 Non-patient / Non-visit INSURANCE OFFICE SUPERVISOR-C D ora Arreguin INSURANCE OFFICE SUPERVISOR Work Phone: [facility] Work Phone: Start: 02-02-2023 Non-patient / Non-visit INSURANCE OFFICE SUPERVISOR-C D ora Arreguin INSURANCE OFFICE SUPERVISOR Work Phone: [facility] Work Phone: Start: 02-01-2023 End: 02-06-2023 Evaluation and management of inpatient INSURANCE OFFICE SUPERVISOR-C Alexandra Arreguin INSURANCE OFFICE SUPERVISOR [facility] Work Phone: Start: 01-20-2023 End: 01-20-2023 Patient encounter procedure mE Flynn APRN.SCHOOL ADMISSIONS REPRESENTATIVE Work Phone: Neurology Comment on above: Parkinson's disease without dyskinesia or fluctuating manifestations (Primary Dx); Hallucinations; Orthostatic hypotension; Insomnia, unspecified type Start: 01-05-2023 End: 01-05-2023 Patient encounter procedure INSURANCE OFFICE SUPERVISOR-C Alexandra Arreguin INSURANCE OFFICE SUPERVISOR Work Phone: [facility] Work Phone: Start: 12-29-2022 End: 12-29-2022 Patient encounter procedure INSURANCE OFFICE SUPERVISOR-C Alexandra Arreguin NP Work Phone: [facility] Work Phone: Start: 10-09-2022 End: 10-09-2022 Office outpatient new 45 minutes Linden Flynn MD Work Phone: Neurology Comment on above: Parkinson's disease (HCC) (Primary Dx); Argyria of skin, accidental or unintentional, sequela; Depression, unspecified depression type Start: 2022 End: 2022 ambulatory [facility] Work Phone: Start: 2022 End: 2022 Patient encounter procedure [facility], Specimen Procedures Date Procedure Procedure Detail Performing Clinician Start: 01-25-2025 [facility] Start: 01-24-2025 Estimated creatinine clearance Tressadennis Rosales OLS Start: 01-23-2025 Total iron binding c apacity measurement Tressajenny Rosales OLS Start: 01-20-2025 Plain X-ray of hip Shob Bobby OLS Start: 01-20-2025 Fluoroscopic guidance S [facility] Bobby OLS Start: 01-20-2025 Plain X-ray of hip [facility] [employer] Start: 01-20-2025 Prosthetic uncemente d hemiarthroplasty of hip [facility] Bobby OLS Start: 01-20-2025 Urnls dip stick/tabl et reagent auto microscopy Tressajenny Rosales OLS Start: 01-20-2025 Serum inorganic phos phate measurement Tressajenny Rosales OLS Start: 11-03-2024 Cardiovascular stres s test using pharmacologic stress agent Tressa Rosales OLS Start: 06-03-2024 Radionuclide study of abdomen Alexandra Arreguin INSURANCE OFFICE SUPERVISOR-C Work Phone: Start: 10-02-2023 Arthrocentesis aspir &/inj major jt/bursa w/o us Yury Jasso MD Work Phone: Start: 09-29-2023 Radex shoulder compl ete minimum 2 views Claudia Manuel PA-C Work Phone: Start: 09-23-2023 Us breast uni real t jason with image limited [facility] Provider Start: 07-29-2023 Mri spinal canal cer vical w/o contrast matrl Em Flynn PERFECT BINDER SETTERJorgitoSCHOOL ADMISSIONS REPRESENTATIVE Work Phone: Start: 05-01-2023 CT cervical spine wi thout contrast INSURANCE OFFICE SUPERVISOR-C Alexandra Arreguin INSURANCE OFFICE SUPERVISOR Work Phone: Start: 05-01-2023 CT of head without contrast INSURANCE OFFICE SUPERVISOR-C Aelxandra Arreguin INSURANCE OFFICE SUPERVISOR Work Phone: Start: 02-06-2023 Viral antigen assay INSURANCE OFFICE SUPERVISOR- C Alexandra Arreguin INSURANCE OFFICE SUPERVISOR Work Phone: Start: 02-02-2023 Plain X-ray of hip INSURANCE OFFICE SUPERVISOR-C Alexandra Arreguin INSURANCE OFFICE SUPERVISOR Work Phone: Start: 02-02-2023 Open reduction of fr acture of femur with internal fixation INSURANCE OFFICE SUPERVISOR-C Alexandra Arreguin INSURANCE OFFICE SUPERVISOR Work Phone: Start: 02-02-2023 Fluoroscopic guidance N P-C Alexandra Arreguin INSURANCE OFFICE SUPERVISOR Work Phone: Start: 02-01-2023 Plain x-ray of elbow INSURANCE OFFICE SUPERVISOR -C Alexandra Arreguin INSURANCE OFFICE SUPERVISOR Work Phone: Start: 02-01-2023 CT of head without contrast INSURANCE OFFICE SUPERVISOR-C Alexandra Arreguin INSURANCE OFFICE SUPERVISOR Work Phone: Start: 02-01-2023 Plain chest X-ray INSURANCE OFFICE SUPERVISOR-C Alexandra Arreguin INSURANCE OFFICE SUPERVISOR Work Phone: Start: 02-01-2023 Plain X-ray of femur INSURANCE OFFICE SUPERVISOR -C Alexandra Arreguin INSURANCE OFFICE SUPERVISOR Work Phone: Plan of Treatment Date Care Activity Detail Author Start: 01-25-2025 Patient discharge [facility] Start: 01-20-2025 Provision of overbed trapeze [facility] Start: 01-20-2025 End: 01-20-2025 [facility] Start: 01-20-2025 Ambulation therapy management [facility] Start: 01-20-2025 Application of device [facility] Start: 01-20-2025 Assessment of risk of venous thromboembolism [facility] Start: 01-20-2025 Catheterization of vein [facility] Start: 01-20-2025 Exercises [facility] Start: 01-20-2025 Following clinical pathway protocol [facility] Start: 01-20-2025 Introduction of urinary catheter [facility] Start: 01-20-2025 Measuring intake and output [facility] Start: 01-20-2025 Neurovascular assessment [facility] Start: 01-20-2025 Patient education [facility] Start: 01-20-2025 Procedure discontinued [facility] Start: 01-20-2025 Provision of activity privileges [facility] Start: 01-20-2025 Recommendation to continue with treatment [facility] Start: 01-20-2025 Referral for physical therapy [facility] Start: 01-20-2025 Referral to occupational therapist [facility] Start: 01-20-2025 Vital signs measurements [facility] Start: 01-20-2025 Wound care [facility] Start: 01-20-2025 Care planning and problem solving actions [facility] Start: 01-20-2025 [facility] Start: 01-20-2025 Application of intermittent pneumatic compression device [facility] Start: 01-20-2025 Following clinical pathway protocol [facility] Start: 01-20-2025 Oxygen therapy [facility] Start: 01-20-2025 Referral to service [facility] Start: 01-20-2025 Admission procedure [facility] Start: 01-20-2025 Assessment of risk of venous thromboembolism [facility] Start: 01-20-2025 Insertion of catheter into peripheral vein [facility] Start: 01-20-2025 Providing care according to standard [facility] Start: 01-20-2025 Consultation [facility] Start: 01-20-2025 Documentation procedure [facility] Start: 01-20-2025 Measuring intake and output [facility] Start: 01-20-2025 End: 01-20-2025 [facility] Start: 12-29-2024 End: 12-29-2024 Patient encounter procedure 12/29/2024 10:00 AM EDT Office Visit Neurology [address] [address] Em Flynn APRN.SCHOOL ADMISSIONS REPRESENTATIVE [address] [address] 6 month follow up Neurology Comment on above: 6 month follow up Start: 07-29-2024 End: 07-29-2024 Patient encounter procedure 07/29/2024 3:00 PM EDT Office Visit Neuromuscular [facility] [address] [place] [address] Armen Madison MD [address] [place] [address] 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 Neuromuscular [facility] Comment on above: 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 Start: 07-29-2024 End: 10-28-2024 Cobalamin (Vitamin B12) [Mass/volume] in Serum or Plasma [facility] Comment on above: Expected: 07/29/2024, Expires: Start: 07-29-2024 End: 10-28-2024 Folate [Mass/volume] in Serum or Plasma [facility] Comment on above: Expected: 07/29/2024, Expires: Start: 07-29-2024 End: 10-28-2024 Hemoglobin A1c in Blood [facility] Work Phone: Comment on above: Expected: 07/29/2024, Expires: Start: 07-29-2024 End: 10-28-2024 IMMUNOFIXATION SCREEN, SERUM [facility] Comment on above: Expected: 07/29/2024, Expires: Start: 07-29-2024 End: 10-28-2024 KAPPA/ERASMO,KATE,SER [facility] Comment on above: Expected: 07/29/2024, Expires: Start: 07-29-2024 End: 10-28-2024 Methylmalonate [Moles/volume] in Serum or Plasma [facility] Comment on above: Expected: 07/29/2024, Expires: Start: 07-29-2024 End: 10-28-2024 VITAMIN B1 (THIAMINE), WHOLE BLOOD [facility] Comment on above: Expected: 07/29/2024, Expires: Start: 06-02-2024 Urine microalbumin profile DTaP,Tdap,Td Vaccine (2 - Td or Tdap) [facility] Start: 04-13-2024 Advance Directive Discussion Advance Directive Discussion [facility] Start: 04-07-2024 End: 04-07-2024 Patient encounter procedure 04/07/2024 10:00 AM EST Office Visit Neurology [address] [address] Em Flynn, PERFECT BINDER SETTER.SCHOOL ADMISSIONS REPRESENTATIVE [address] [place] [address] 3 month follow up Neurology Comment on above: 3 month follow up Start: 12-31-2023 End: 12-31-2023 Patient encounter procedure 12/31/2023 9:00 AM EDT Office Visit Neurology [address] [address] Em Flynn, PERFECT BINDER SETTER.SCHOOL ADMISSIONS REPRESENTATIVE [address] [place] [address] 3 month follow up Neurology Comment on above: 3 month follow up Start: 12-13-2023 Covid-19 Vaccine ( season) Covid-19 Vaccine ( season) [facility] Start: 12-13-2023 Covid-19 Vaccine ( season) Covid-19 Vaccine ( season) [facility] Start: 12-13-2023 Influenza vaccination [facility] Start: 11-20-2023 End: 11-20-2023 Patient encounter procedure 11/20/2023 7:45 AM EDT Appointment Mammography [address] [address] INCONCLUSIVE MAMMOGRAM - ORDER SCANNED IN [facility] 09/24/23 Mammography Comment on above: INCONCLUSIVE MAMMOGRAM - ORDER SCANNED I N [facility] 09/24/23 Start: 10-02-2023 End: 10-02-2023 Patient encounter procedure Orthopedics Comment on above: Acute pain of left shoulder [M25.512] L shoulder Start: 09-29-2023 End: 09-29-2023 Patient encounter procedure 09/29/2023 9:00 AM EDT Office Visit Neurology [address] [id number] Em Flynn, PERFECT BINDER SETTER.SCHOOL ADMISSIONS REPRESENTATIVE [address] [address] Return in about 3 months (around 10/06/2023). Neurology Comment on above: Return in about 3 months (around 10/06/19). Start: 09-23-2023 End: 09-23-2023 Patient encounter procedure 09/23/2023 9:20 AM EDT Appointment Mammography [address] [place] [address] Franki breast us, left breast diagnostic mammogram Mammography Comment on above: Franki breast us, left breast diagnostic m ammogram Start: 09-23-2023 Subsequent hospital visit by physician 09/23/2023 9:20 AM EDT Hospital Encounter Mammography [address] [place] [address] Inconclusive mammogram [R92.2] Mammography Comment on above: Inconclusive mammogram [R92.2] Start: 08-27-2023 End: 08-27-2023 Patient encounter procedure 08/27/2023 1:40 PM EDT Office Visit [facility] [address] [address] Stephan Sheehan PA-C [address] [place] [id number] 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] [facility] Comment on above: Protrusion of cervical intervertebral di sc [M50.20] Start: 08-13-2023 End: 08-13-2023 Patient encounter procedure Mammography Comment on above: MAMMOGRAM SCREENING BILATERAL DEXA BONE DENSITY Start: 05-01-2023 [facility] Start: 04-13-2023 Advance Directive Discussion Advance Directive Discussion [facility] Start: 04-13-2023 Behavioral Health Screening Behavioral Health Screening [facility] Start: 04-13-2023 Depression Assessment Depression Assessment [facility] Start: 02-09-2023 Blood chemistry [facility] Start: 02-08-2023 Blood chemistry [facility] Start: 02-07-2023 Blood chemistry [facility] Start: 02-06-2023 Patient discharge [facility] Start: 02-03-2023 Administration of blood product [facility] Start: 02-02-2023 Ambulation therapy management [facility] Start: 02-02-2023 Application of device [facility] Start: 02-02-2023 Exercises [facility] Start: 02-02-2023 Following clinical pathway protocol [facility] Start: 02-02-2023 Introduction of urinary catheter [facility] Start: 02-02-2023 Neurovascular assessment [facility] Start: 02-02-2023 Patient education [facility] Start: 02-02-2023 Provision of activity privileges [facility] Start: 02-02-2023 Recommendation to continue with treatment [facility] Start: 02-02-2023 Referral to occupational therapist [facility] Start: 02-02-2023 Referral to service [facility] Start: 02-02-2023 Vital signs measurements [facility] Start: 02-02-2023 Wound care [facility] Start: 02-02-2023 [facility] Start: 02-02-2023 End: 02-02-2023 Measuring intake and output [facility] Start: 02-01-2023 Application of intermittent pneumatic compression device [facility] Start: 02-01-2023 Following clinical pathway protocol [facility] Start: 02-01-2023 Application of ice collar, cap or bag [facility] Start: 02-01-2023 Assessment of risk of venous thromboembolism [facility] Start: 02-01-2023 Bedrest [facility] Start: 02-01-2023 Consultation [facility] Start: 02-01-2023 Fall prevention [facility] Start: 02-01-2023 Inhalation therapy procedure [facility] Start: 02-01-2023 Insertion of catheter into peripheral vein [facility] Start: 02-01-2023 Introduction of urinary catheter [facility] Start: 02-01-2023 Neurovascular assessment [facility] Start: 02-01-2023 Providing care according to standard [facility] Start: 02-01-2023 Referral to occupational therapist [facility] Start: 02-01-2023 Referral to service [facility] Start: 02-01-2023 Skin care [facility] Start: 02-01-2023 [facility] Start: 02-01-2023 End: 02-01-2023 Measuring intake and output [facility] Start: 02-01-2023 Admission procedure [facility] Start: 02-01-2023 Hospital admission, emergency, from emergency room, medical nature [facility] Start: 02-01-2023 Brain natriuretic peptide measurement [facility] Start: 12-12-2022 Covid-19 Vaccine ( season) Covid-19 Vaccine ( season) [facility] Start: 12-12-2022 Influenza vaccination [facility] Start: 04-13-2022 ADVANCE DIRECTIVE DISCUSSION ADVANCE DIRECTIVE DISCUSSION [facility] Start: 04-13-2022 DEPRESSION ASSESSMENT DEPRESSION ASSESSMENT [facility] Start: 01-07-2019 Shingrix Vaccine (2 of 2) Shingrix Vaccine (2 of 2) [facility] Start: 2016 RSV Vaccine (1 - 1-dose 75+ series) RSV Vaccine (1 - 1-dose 75+ series) [facility] Start: 2006 BONE DENSITY BONE DENSITY [facility] Start: 2006 Bone Density Screening Bone Density Screening [facility] Start: 2006 Pneumococcal Vaccine: 65+ (1 - PCV) Pneumococcal Vaccine: 65+ (1 - PCV) [facility] Start: 2006 Pneumococcal Vaccine: 65+ (1 of 1 - PCV) Pneumococcal Vaccine: 65+ (1 of 1 - PCV) [facility] Start: 2006 PNEUMOCOCCAL: 65+ (1 - PCV) PNEUMOCOCCAL: 65+ (1 - PCV) [facility] Start: 2006 Screening for osteoporosis Bone Density Screening [facility] Start: 2001 RSV Vaccine (1 - 1-dose 60+ series) RSV Vaccine (1 - 1-dose 60+ series) [facility] Start: 1991 SHINGRIX VACCINE (1 of 2) SHINGRIX VACCINE (1 of 2) [facility] Start: 1986 DIABETES SCREEN DIABETES SCREEN [facility] Start: 1986 Diabetes Screening Diabetes Screening [facility] Start: 1960 Urine microalbumin profile [facility] Start: 1959 Anxiety Screening Anxiety Screening [facility] Start: 1959 Depression Screening Depression Screening [facility] Start: 1959 Hepatitis B surface antibody level LDL CHOLESTEROL [facility] Start: 1941 COVID-19 VACCINE (#1) COVID-19 VACCINE (#1) [facility] Hematocrit [Volume Fraction] of Blood [facility] Hematocrit [Volume Fraction] of Blood [facility] Hemoglobin [Mass/vol ume] in Blood [facility] Hemoglobin [Mass/vol ume] in Blood [facility] Leukocytes [#/volume ] in Blood [facility] Leukocytes [#/volume ] in Blood [facility] Mean corpuscular hemoglobin concentration determination [facility] Mean corpuscular hemoglobin concentration determination [facility] Mean corpuscular hemoglobin determination [facility] Mean corpuscular hemoglobin determination [facility] End: 08-04-2024 MR Cervical spine WO contrast MRI CERVICAL SPINE WO IVCON Radiology Routine 1 Occurrences starting 07/06/2023 until 08/04/2024 [facility] Work Phone: Comment on above: 1 Occurrences starting 07/06/2023 until 08/04/2024 Neutrophil count [facility] Neutrophil count [facility] Neutrophil percent differential count [facility] Neutrophil percent differential count [facility] Patient Education [facility] Work Phone: Patient referral [facility] Work Phone: Platelets [#/volume] in Blood [facility] Platelets [#/volume] in Blood [facility] Red blood cell count [facility] Red blood cell count [facility] Red cell distributio n width determination [facility] Red cell distributio n width determination [facility] XR Shoulder - left 3 Views XR SHOULDER GENERAL 3V OR MORE AP/TRUE AP/OTHER LEFT Radiology Routine Chronic left shoulder pain 1 Occurrences starting 09/15/2023 [facility] Work Phone: Comment on above: 1 Occurrences starting 09/15/2023 [facility] Payers Date Payer Category Payer Self-pay 2024 Medicaid [id number] 2023 Medicaid [id number] 2023 Medicare (Managed Care) [facility] MEDICARE [id number] 2023 Medicare [id number] 2022 Medicare [id number] Unknown [id number] Unknown [id number] 2.16.840.1.470019.3.579.2. 462 Unknown [id number] 2.16.840.1.641935.3.579.2. 462 Unknown [id number] 2.16.840.1.514115.3.579.2. 462 Unknown [id number] 2.16.840.1.914001.3.579.2. 462 Unknown [id number] 2.16.840.1.514496.3.579.2. 462 Unknown [id number] 2.16.840.1.971324.3.579.2. 462 Unknown [id number] 2.16.840.1.492640.3.579.2. 462 Unknown [id number] 2.16.840.1.943641.3.579.2. 462 Unknown [id number] 2.16.840.1.815556.3.579.2. 462 Unknown [id number] 2.16.840.1.226535.3.579.2. 462 Unknown [id number] 2.16.840.1.166673.3.579.2. 462 Unknown [id number] 2.16.840.1.039226.3.579.2. 462 Unknown [id number] 2.16.840.1.537851.3.579.2. 462 Unknown [id number] 2.16.840.1.399933.3.579.2. 462 Unknown [id number] 2.16.840.1.389062.3.579.2. 462 Social History Date Type Detail Facility Start: 2022 End: 05-01-2023 Tobacco smoking status [facility] Unknown if ever smoked [facility] Start: 1940 Sex Assigned At Female [facility] Start: 10-09-2022 End: 01-20-2025 Tobacco smoking status [facility] Ex-smoker [facility] History of tobacco use Current smoker [facility] History of tobacco use Cigarette Smoker [facility] Start: 10-09-2022 End: 08-27-2023 Tobacco use and exposure Smokeless tobacco non-user [facility] Start: 10-09-2022 End: 07-29-2024 Alcohol intake Lifetime non-drinker (finding) [facility] Start: 1940 Sex Assigned At Not on file [facility] Start: 01-20-2023 End: 07-29-2024 History of Social function [facility] Start: 01-20-2023 End: 07-29-2024 Tobacco use panel [facility] National Score (1-100), lower number is lower risk 51 [facility] Start: 06-16-2024 [facility] Highlighted row [facility] NEGATED: Highlighted rowStart: NINF History of tobacco use Passive smoker [facility] Medical Equipment Procedure Code Equipment Code Equipment Origin al Text Equipment Identifier Dates Primary uncemented hemiarthroplasty of hip ([id number]) Uncoated hip femur prosthesis, one-piece ()[id number] FDA Start: 01-20-2025 Primary uncemented hemiarthroplasty of hip Uncoated hip femur prosthesis, one-piece ()[id number] FDA Start: 01-20-2025 Primary uncemented hemiarthroplasty of hip ([id number]) Coated hip femur prosthesis, modular ()[id number] FDA Start: 01-20-2025 ORIF, hip, using Gamma nail ([id number]) Orthopaedic bone screw, non-bioabsorbable, sterile ()[id number])[id number] FDA Start: 02-02-2023 ORIF, hip, using Gamma nail ([id number]) Femur nail, sterile ()[id number])[id number] [id number] FDA Start: 02-02-2023 ORIF, hip, using Gamma nail ([id number]) Orthopaedic bone screw, non-bioabsorbable, sterile ()[id number])[id number] [id number] FDA Start: 02-02-2023 Goals Date Patient Goal Desired Activity /State Functional Status Date Assessment Result Facility 01-25-2025 Functional status [facility] Work Phone: 02-06-2023 Functional status [facility] Work Phone: Mental Status Date Assessment Result Facility 01-25-2025 Cognitive function Voice/Name [facility] Work Phone: 02-06-2023 Cognitive function Voice/Name [facility] Work Phone: Clinical Notes 10-09-2022 to 01-25-2025 Note Date & Type Note Facility 01-25-2025 Note [facility] Medical Records Department [address] [place] [address] Discharge Summary 01/25/25 1449 MR#: [id number] Acct: [id number] Name: MONISHA COHN Rep #: [id number] : 1940 84 From: Davian Kelly MD PCP: Tressa Rosales Status:DIS IN [facility] Prov[facility] Date of Admission: 01/20/25 Primary Care [...] pulmonary hypertension, CAD; with RCA stent at [facility] in [place] (2009) and subsequent inferior wall ST elevation [place] s/p RCA stent with cardiogenic shock and [...] recently diagnosed COVID-19 who was transferred from [facility] after she was diagnosed with an [...] LOC with her fall. Dr. North of [facility] spoke to Dr. Tijerina of the orthopedic service here (more content not included)... [facility] 01-25-2025 Consult note [facility] 01-25-2025 Consult note [facility] 01-25-2025 Consult note Note Date/Time January 25, 2025 1:00pm [facility] Medical Records Department [address] [place] [address] Counseling Note - Pharmacy 01/25/25 0938 MR#: [id number] Acct: [id number] Name: MONISHA COHN Rep #:[id number] : 1940 84 From: Ephraim severino PCP: Tressa Rosales Status:ADM IN Y Location: MS3 NW690-3 Pharmacy OR Med Reconciliation Pharmacy Service has [...] Signature (if applicable): Date CC: ~ Signed [facility] Work Phone: 1(342) 264-512010-15-2025 Discharge summary Author Davian Kelly [facility] Note Date/Time January 25, 2025 9 :25am [facility] Medical Records Department [address] [place] [address] Transfer to [facility] MR#: [id number] Acct: [id number] Name: MONISHA COHN Rep #:[id number] 7 : 1940 84 From: Davian interiano MD PCP: Tressa Rosales Status:ADM IN Certification of patient admission REQUIRED AT TIME OF ADMISSION. I CERTIFY THAT POST-HOSPITAL F SERVICES ARE REQUIRED TO BE GIVEN ON AN IN-PATIENT BASIS BECAUSE OF THE ABOVE NAMED PATIENT'S NEED FOR SENIOR LIVING CARE ON A CONTINUING BASIS FOR THE CONDITION(S) FOR WHICH HE/SHE WAS RECEIVING IN-PATIENT HOSPITAL SERVICES PRIOR TO HIS/HER TRANSFER TO THE [facility]. 01/25/25924<Electronically signed by Davian Kelly MD> [...] post repair 01/20/2025 -After mechanical fall at [facility] -Ortho consulted -Patient n.p.o. -Pain control/supportive [...] in before D/C Order can be placed): [facility] Facility (1) Closed hip fracture Qualifiers: Encounter [...] Dr. Braulio Tijerina MD; Tressa Rosales ~ [facility] Work Phone: [phone]) 264-116110-15-2025 Discharge summary [facility] Medical Records Department [address] [place] [address] Transfer to [facility] MR#: [id number] Acct: [id number] Name: MONISHA COHN Rep #:[id number] 7 : 1940 84 From: Davian interiano MD PCP: Tressa Rosales Status:ADM IN Certification of patient admission REQUIRED AT TIME OF ADMISSION. I CERTIFY THAT POST-HOSPITAL ECF SERVICES ARE REQUIRED TO BE GIVEN ON AN IN-PATIENT BASIS BECAUSE OF THE ABOVE NAMED PATIENT'S NEED FOR SENIOR LIVING CARE ON A CONTINUING BASIS FOR THE [...] post repair 01/20/2025 -After mechanical fall at [facility] -Ortho consulted -Patient n.p.o. -Pain control/supportive [...] in before D/C Order can be placed): [facility] Facility (1) Closed hip fracture Qualifiers: Encounter [...] Dr. Braulio Tijerina MD; Tressa Rosales ~ [facility]10-14-2025 Progress note Author Davian Kelly [facility] Note Date/Time January 24, 2025 1 0:33am [facility] Medical Records Department [address] [place] [address] Progress Note - Hospitalist 01/24/25 1031 MR#: [id number] Acct: [id number] Name: MONISHA COHN Rep #:[id number] 0 : 1940 84 From: Davian interiano MD PCP: Tressa Rosales Status:ADM IN Location: [place] LV429-3 Subjective Subjective Doing well, no issues overnight. [...] post repair 01/20/2025 -After mechanical fall at [facility] -Ortho consulted -Patient n.p.o. -Pain control/supportive [...] DVT: Xarelto Charges/Coding Visit Charges Inpatient E&M: 05285 Subs Hosp L2 01/24/25 1033 <Electronically signed by Davian Kelly MD> Cosigner Signature (if applicable): CC: ~ Signed [facility] Work Phone: [phone]) 323-327610-14-2025 Progress note [facility] Medical Records Department [address] [place] [address] Progress Note - Hospitalist 01/24/25 1031 MR#: [id number] Acct: [id number] Name: MONISHA COHN Rep #:[id number] 0 : 1940 84 From: Davian interiano MD PCP: Tressa Rosales Status:ADM IN Location: [place] [address]-1 Subjective Subjective Doing well, no issues overnight. [...] post repair 01/20/2025 -After mechanical fall at [facility] -Ortho consulted -Patient n.p.o. -Pain control/supportive [...] DVT: Xarelto Charges/Coding Visit Charges Inpatient E&M: 43925 Subs Hosp L2 01/24/25 1033 Cosigner Signature (if applicable): CC: ~ Signed [facility]10-13-2025 Progress note Author Davian Kelly [facility] Note Date/Time January 23, 2025 1 1:01am [facility] Medical Records Department [address] [place] [address] Progress Note - Hospitalist 01/23/25 1053 MR#: [id number] Acct: [id number] Name: MONISHA COHN Rep #:[id number] 4 : 1940 84 From: Davian interiano MD PCP: Tressa Rosales Status:ADM IN Location: [place] SI455-9 Subjective Subjective Pain is controlled, no issues [...] DVT: Xarelto Charges/Coding Visit Charges Inpatient E&M: 09271 Subs Hosp L2 01/23/25 1101 <Electronically signed by Davian Kelly MD> Cosigner Signature (if applicable): CC: ~ Signed [facility] Work Phone: [phone] 348-852910-13-2025 Progress note [facility] Medical Records Department [address] [place] [address] Progress Note - Hospitalist 01/23/25 1053 MR#: [id number] Acct: [id number] Name: MONISHA COHN Rep #:[id number] 4 : 1940 84 From: Davian interiano MD PCP: Tressa Rosales Status:ADM IN Location: [place] [address] Subjective Subjective Pain is controlled, no issues [...] post repair 01/20/2025 -After mechanical fall at [facility] -Ortho consulted -Patient n.p.o. -Pain control/supportive [...] DVT: Xarelto Charges/Coding Visit Charges Inpatient E&M: 79616 Subs Hosp L2 01/23/25 1101 Cosigner Signature (if applicable): CC: ~ Signed [facility]10-12-2025 Progress note Author Davian Kelly [facility] Note Date/Time January 22, 2025 9 :19am [facility] Medical Records Department [address] [place] [address] Progress Note - Hospitalist 01/22/25917 MR#: [id number] Acct: [id number] Name: MONISHA COHN Rep #:[id number] 0 : 1940 84 From: Davian interiano MD PCP: Tressa Rosales Status:ADM IN Location: [place] [address]-1 Subjective Subjective Doing well, pain is controlled. [...] post repair 01/20/2025 -After mechanical fall at [facility] -Ortho consulted -Patient n.p.o. -Pain control/supportive [...] DVT: Xarelto Charges/Coding Visit Charges Inpatient E&M: 35822 Subs Hosp L2 01/22/25918 <Electronically signed by Davian Kelly MD> Cosigner Signature (if applicable): CC: ~ Signed [facility] Work Phone: [phone]) 408-254210-12-2025 Progress note [facility] Medical Records Department [address] [place] [address] Progress Note - Hospitalist 01/22/25917 MR#: [id number] Acct: [id number] Name: MONISHA COHN Rep #:[id number] 0 : 1940 84 From: Davian interiano MD PCP: Tressa Rosales Status:ADM IN Location: [place] [address] Subjective Subjective Doing well, pain is controlled. [...] DVT: Xarelto Charges/Coding Visit Charges Inpatient E&M: 47541 Subs Hosp L2 01/22/25 0919 Cosigner Signature (if applicable): CC: ~ Signed [facility]10-11-2025 Progress note Author Braulio Tijerina [facility] Note Date/Time January 21, 2025 1 :41pm [facility] Medical Records Department [address] [place] [address] Progress Note - Orthopedic 01/21/25 1335 MR#: [id number] Acct: [id number] Name: MONISHA COHN Rep #:[id number] 7 : 1940 84 From: Braulio Fontana PCP: Tressa Rosales Status:ADM IN Location: [place]3 SS030-3 Subjective Subjective Patient states she is doing [...] hip surgical and chronic changes. [facility] 01/20/25 16:20 IMPRESSION: Uncomplicated [...] Cosigner Signature (if applicable): CC: ~ Signed [facility] Work Phone: [phone] 882-166210-11-2025 Progress note [facility] Medical Records Department [address] [place] [address] Progress Note - Orthopedic 01/21/25 1335 MR#: [id number] Acct: [id number] Name: MONISHA COHN Rep #:[id number] 7 : 1940 84 From: Braulio Fontana PCP: Tressa Rosales Status:ADM IN Location: [place]3 AP767-2 Subjective Subjective Patient states she is doing [...] hip surgical and chronic changes. [facility]-Ray 01/20/25 16:20 IMPRESSION: Uncomplicated [...] Cosigner Signature (if applicable): CC: ~ Signed [facility]10-11-2025 Progress note Author Davian Kelly [facility] Note Date/Time January 21, 2025 9 :43am [facility] Medical Records Department [address] [place] [address] Progress Note - Hospitalist 01/21/25 0939 MR#: [id number] Acct: [id number] Name: SUKIMONISHA ARIEL Rep #:[id number] 7 : 1940 84 From: Davian interiano MD PCP: Tressa Rosales Status:ADM IN Location: [place]3 LK822-3 Subjective Subjective Doing well, no issues overnight. [...] hip surgical and chronic changes. [facility]-Ray 01/20/25 16:20 IMPRESSION: Uncomplicated appearing right hip hemiarthroplasty. Left hip chronic and surgical changes. Reading [facility] Physical Exam Narrative General: Alert, Oriented [...] post repair 01/20/2025 -After mechanical fall at [facility] -Ortho consulted -Patient n.p.o. -Pain control/supportive [...] DVT: Xarelto Charges/Coding Visit Charges Inpatient E&M: 17743 Subs Hosp L2 01/21/25942 <Electronically signed by Davian Kelly MD> Cosigner Signature (if applicable): CC: ~ Signed [facility] Work Phone: [phone] 557-643210-11-2025 Progress note [facility] Medical Records Department [address] [place] [address] Progress Note - Hospitalist 01/21/25938 MR#: [id number] Acct: [id number] Name: MONISHA COHN Rep #:[id number] 7 : 1940 84 From: Davian interiano MD PCP: Tressa Rosales Status:ADM IN Location: [facility] UD831-3 Subjective Subjective Doing well, no issues overnight. [...] hip surgical and chronic changes. Reading Location: [facility] Hip X-Ray 01/20/25 16:20 IMPRESSION: Uncomplicated appearing right hip hemiarthroplasty. Left hip chronic and surgical changes. Reading Location: [facility] Physical Exam Narrative General: Alert, Oriented [...] DVT: Xarelto Charges/Coding Visit Charges Inpatient E&M: 79841 Subs Hosp L2 01/21/25 0943 Cosigner Signature (if applicable): CC: ~ Signed [facility]10-10-2025 Consult note Author Brennen Rojas [facility] Note Date/Time January 20, 2025 5 :17pm [facility] Medical Records Department [address] [place] [address] Anesthesia Postop Eval I 01/20/25 1715 MR#: [id number] Acct: [id number] Name: MONISHA COHN Rep #:[id number] 0 : 1940 84 From: Brennen Rojas CRNA PCP: Tressa Rosales Status:ADM IN Y Race: C Location: [place] [address] Anesthesia: Postop Eval I Current Vital Signs [...] Yes 01/20/251716 <Electronically signed by Brennen paz DRINKING WATER TECHNICIAN> Date _ Brennen Rojas DRINKING WATER TECHNICIAN Cosigner Signature: Date CC: ~ Signed [facility] Work Phone: [phone] 960-252610-10-2025 Consult note Author Jareth Shepard [facility] Note Date/Time January 25, 2025 1 :00pm [facility] Medical Records Department [address] [place] [address] Anesthesia Postop Eval II 01/20/251705 MR#: [id number] Acct: [id number] Name: MONISHA COHN Rep #:[id number] : 1940 84 From: Jareth Shepard MD PCP: Tressa Rosales Status:ADM IN Y Race: C Location: [facility] MS309 -1 Anesthesia [...] Jareth Elliott Signature: Date CC: ~ Signed [facility] Work Phone: [phone] 710-934310-10-2025 Procedure note [facility] Medical Records Department [address] [facility] [place] [address] Operative Report 01/20/25 1545 MR#: [id number] Acct: [id number] Name: MONISHA COHN Rep #:[id number] : 1940 84 From: Braulio Fontana PCP: Tressa Rosales Status:ADM IN [facility] Operative Report (Standard) Operative Information Date of Procedure: 01/20/25 Pre-Operative Diagnosis: Right hip subcapital femoral neck fracture Post-Operative Diagnosis: Right hip subcapital femoral neck fracture Surgery/Procedure Performed: Right hip endoprosthesis scouring train operator: Yes Textile Colorist Dyer: Edyta Bhatti Tasks completed by assistant child care teacher: Opening, Closing, Implanting device and Retracting Additional facilities maintenance assistant?: No Type of Anesthesia: General RN [...] awakened by anesthesia and transferred to the [facility]. Patient was then transferredto the PACU [...] Dr. Braulio Tijerina MD; Tressa Rosales~ Signed [facility]10-10-2025 Consult note [facility] Medical Records Department [address] [place] [address] Anesthesia Postop Eval I 01/20/25 1715 MR#: [id number] Acct: [id number] Name: MONISHA COHN Rep #:[id number] 0 : 1940 84 From: Brennen Rojas CRNA PCP: Tressa Rosales Status:ADM IN Y Race: C Location: [facility] MS309 -1 Anesthesia: [...] Eval 1 completed: Yes 01/20/25 1717 an DRINKING WATER TECHNICIAN> Date _ Brennen Rojas DRINKING WATER TECHNICIAN Cosigner Signature: Date CC: ~ Signed [facility]10-10-2025 Radiology Diagnostic study note [facility] Imaging Services [address] [place] [address] [id number] Hip Min 2 Views (Portable) MR#: [id number] Acct: [id number] Name: MONISHA COHN Rep #: [id number] : 1940 F 84 From: Christine Gillette MD PCP: Tressa Rosales Status: ADM IN Study:Hip Min 2 Views (Portable) Date of Exam : 01/20/25 Exam# [id number] Ordering Dr: Rachele Tijerina MD PROCEDURE: HIP [...] Dr. Braulio Tijerina MD; Tressa Rosales ~ Landscape Laborer: Signed [facility]10-10-2025 Consult note Author Braulio Tijerina [facility] Note Date/Time January 20, 2025 2 :24pm [facility] Medical Records Department [address] [place] [address] Consultation - Orthopedics 01/20/25 1415 MR#: [id number] Acct: [id number] Name: MONISHA COHN Rep #:[id number] : 1940 84 From: Braulio Fontana PCP: Tressa Rosales Status:ADM IN Location: [facility] GF734-0 HPI Consult Data Date of Consult: 01/20/25 [...] Patient notes that she lives in a care home facility and ambulates with a walker or uses a wheelchair. She does notwalk independently. She was reported to have fallen yesterday and sustained an injury to her right hand and hip. She was seen at an outside hospital and requested transfer to [facility] as they did not have orthopedics. She [...] denies any current treatment or active malignancies. [facility] Medical History Nocturia Urge incontinence Overactive bladder Former tobacco use Depression Hypertension Fall [facility] (closed head injury) Presence of stent in coronary artery (~12/22/21) Atherosclerotic heart disease of [place] coronary artery without angina pectoris ST elevation [...] mg chewable tablet 125 mg PO QD-BID OK N abdominal 12/28/24 Unknown History (Mylanta Gas) [...] 81.1 H, Lymph % (Auto) 11.1 L, [place] % (Auto) 7.2, Eos % (Auto) 0.1, [...] Sl. Cloudy, Urine pH 6.5, Ur Specific [place] 1.010, Urine Protein 15 H, Urine Glucose [...] Signature (if applicable): CC: Tressa Rosales~ Signed [facility] Work Phone: [phone]) 690-482010-10-2025 Radiology Diagnostic study note [facility] Imaging Services [address] [place], [place] [address] Hip Min 2 Views (Portable) MR#: [id number] Acct: [id number] Name: MONISHA COHN Rep #: [id number] 4 : 1940 F 84 From: Christine Gillette MD PCP: Tressa Rosales Status: ADM IN Study:Hip Min 2 Views (Portable) Date of Exam : 01/20/25 Exam# [id number] Ordering Dr: Rachele Tijerina MD PROCEDURE: HIP [...] hip surgical and chronic changes. Reading [facility] CC: Dr. Braulio Tijerina MD; Tressa Rosales ~ Landscape Laborer: Signed [facility]10-10-2025 Consult note Author Jareth [facility] Note Date/Time January 20, 2025 2 :03pm [facility] Medical Records Department [address] [place] [address] Pre-Anesthesia Evaluation 01/20/25 1342 MR#: [id number] Acct: [id number] Name: MONISHA COHN Rep #:[id number] : 1940 84 From: Jareth Shepard MD PCP: Tressa Rosales Status:ADM IN Y Race: C Location: [place] [address] -1 ASA Classification* ASA Classification ASA Classification: [...] hip hemiarthroplasty Anesthesia History 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: 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 Hx Hospitalization Any Problems With Anesthesia No [...] take am of surgery PONV PONV - flight communications operator: PONV - flight communications operator Female HX of Motion Sickness HX of N/V After Surgery Non-Smoker Duration of Surgery greater than 60 minutes Number of Risk Factors PONV Score Height & Weight Height & Weight: Anesthesia: Height & Weight Height 5 ft 1.81 in 01/20/25 11:58 Weight: 75 kg 01/20/25 11:58 Body Mass Index (BMI) 30.4 01/20/25 11:58 Respiratory Assessment Respiratory Assessment - flight communications operator: Respiratory Tract Infection Hx - flight communications operator Hx Respiratory Tract Infection Yes: covid 01/20/25 [...] STOP Sleep Apnea STOP Sleep Apnea - flight communications operator: STOP Sleep Apnea - flight communications operator Hx Hypertension Yes 01/20/25 01:18 Hx Sleep [...] 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 - flight communications operator: 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 - flight communications operator Tobacco Use Smoking Status Former smoker 01/20/25 01:18 Hx Tobacco Use No 01/20/25 01:18 Years Smoking Packs Smoked per Day Smoking Cessation Date was No - quit smoking greater 01/20/25 01:18 within the last 15 years than 15 years ago Hx Smoking Cessation Date 04/13/79 01/20/25 01:18 Hx Smoking Cessation Counseling Hematologic Medial History Hematologic Hx - flight communications operator: Hematologic Medical Hx - buyer liaison Hx of Blood Transfusion Yes 01/20/25 01:18 [...] confused, unrespo /Reproduction History /Reproductive History - flight communications operator: /Reproductive Hx- flight communications operator Hx Now No 01/20/25 01:31 Gestational Age [...] mls @ 15 mls/hr 01/20/25 01:13 IV .[id number] PRN Saline Flush Sodium Chloride 250 mls @ 15 mls/hr 01/20/25 01:13 IV .[id number] PRN Additional IVPB Infusion Lactated Ringer's 1,000 [...] coronary artery (~12/22/21) Atherosclerotic heart disease of [place] coronary artery without angina pectoris ST elevation [...] mg chewable tablet 125 mg PO QD-BID OK N abdominal 12/28/24 Unknown History (Mylanta Gas) [...] MD Cosigner Signature: Date CC: ~ Signed [facility] Work Phone: 1(469) 799-939710-10-2025 Consult note [facility] Medical Records Department [address] [place] [address] Consultation - Orthopedics 01/20/25 1415 MR#: [id number] Acct: [id number] Name: MONISHA COHN Rep #:[id number] 9 : 1940 84 From: Braulio Fontana PCP: Tressa Rosales Status:ADM IN Location: [facility] JD906-4 HPI Consult Data Date of Consult: 01/20/25 [...] Patient notes that she lives in a care home facility and ambulates with a walker or uses a wheelchair. She does notwalk independently. She was reported to have fallen yesterday and sustained an injury to her right hand and hip. She was seen at an outside hospital and requested transfer to [facility] as they did not have orthopedics. She [...] Patient denies any current treatment or activemalignancies. [facility] Medical History Nocturia Urge incontinence Overactive bladder Former tobacco use Depression Hypertension Fall [facility] (closed head injury) Presence of stent in coronary artery (~12/22/21) Atherosclerotic heart disease of [place] coronary artery without angina pectoris ST elevation [...] mg chewable tablet 125 mg PO QD-BID OK N abdominal 12/28/24 Unknown History (Mylanta Gas) [...] 81.1 H, Lymph % (Auto) 11.1 L, [place] % (Auto) 7.2, Eos % (Auto) 0.1, [...] Sl. Cloudy, Urine pH 6.5, Ur Specific [place] 1.010, Urine Protein 15 H, Urine Glucose [...] Signature (if applicable): CC: Tressa Rosales~ Signed [facility]10-10-2025 Progress note Author Darline Lundy [facility] Note Date/Time January 20, 2025 1 2:07pm [facility] Medical Records Department [address] [place] [address] Progress Note - Hospitalist 01/20/25 0842 MR#: [id number] Acct: [id number] Name: MONISHA COHN Rep #:[id number] : 1940 84 From: Darline Lundy MD PCP: Tressa Rosales Status:ADM IN Location: MS3 [id number] Hospitalist Note 84y/o F with a history of coronary artery disease with RCA stent, Parkinson's disease, fibromyalgia and overactive bladder, recent COVID diagnosis, who presented [facility] ED 01/20/2025 as a transfer from [place] ER after she was found to have an impacted right femoral neck fracture. Reportedlyshe was at [facility] when she sustained a mechanical fall on her right side and subsequently could not please ambulate to assess for home O2 needs. Was noted to have a scalp hematoma and metacarpal fracture of right hand but denied any loss of consciousness with the fall. [place] ED physician spoke to Dr. 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: 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 Hx Hospitalization Any Problems With Anesthesia No [...] take am of surgery PONV PONV - flight communications operator: PONV - flight communications operator Female HX of Motion Sickness HX of N/V After Surgery Non-Smoker Duration of Surgery greater than 60 minutes Number of Risk Factors PONV Score Height & Weight Height & Weight: Anesthesia: Height & Weight Height 5 ft 1.81 in 01/20/25 11:58 Weight: 75 kg 01/20/25 11:58 Body Mass Index (BMI) 30.4 01/20/25 11:58 Respiratory Assessment Respiratory Assessment - flight communications operator: Respiratory Tract Infection Hx - flight communications operator Hx Respiratory Tract Infection Yes: covid 01/20/25 [...] STOP Sleep Apnea STOP Sleep Apnea - flight communications operator: STOP Sleep Apnea - flight communications operator Hx Hypertension Yes 01/20/25 01:18 Hx Sleep [...] 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 - flight communications operator: 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 - flight communications operator Tobacco Use Smoking Status Former smoker 01/20/25 01:18 Hx Tobacco Use No 01/20/25 01:18 Years Smoking Packs Smoked per Day Smoking Cessation Date was No - quit smoking greater 01/20/25 01:18 within the last 15 years than 15 years ago Hx Smoking Cessation Date 04/13/79 01/20/25 01:18 Hx Smoking Cessation Counseling Hematologic Medial History Hematologic Hx - flight communications operator: Hematologic Medical Hx - buyer liaison Hx of Blood Transfusion Yes 01/20/25 01:18 [...] confused, unrespo /Reproduction History /Reproductive History - flight communications operator: /Reproductive Hx- flight communications operator Hx Now No 01/20/25 01:31 Gestational Age [...] mls @ 15 mls/hr 01/20/25 01:13 IV .[id number] PRN Saline Flush Sodium Chloride 250 mls @ 15 mls/hr 01/20/25 01:13 IV .[id number] PRN Additional IVPB Infusion Lactated Ringer's 1,000 [...] Glycol 3350 17 Gm Packet PO DAILY [facility] Psyllium Hydrophilic Mucilloid 1 packet 01/20/25 10:00 Psyllium 1 Packet PO DAILY [facility] Sodium Chloride 10 - 40 ml 01/20/25 01:13 01/20/25 09:21 0.9% Saline Lock 10 Ml Syringe IV 10 ml UD PRN Administration SALINE FLUSH PFSH Medical History Nocturia Urge incontinence Overactive bladder Former tobacco use Depression Hypertension Fall [facility] (closed head injury) Presence of stent in coronary artery (~12/22/21) Atherosclerotic heart disease of [place] coronary artery without angina pectoris ST elevation [...] mg chewable tablet 125 mg PO QD-BID OK N abdominal 12/28/24 Unknown History (Mylanta Gas) [...] MD Cosigner Signature: Date CC: ~ Signed [facility]10-10-2025 Progress note [facility] Medical Records Department [address] [place] [address] Progress Note - Hospitalist 01/20/25 0842 MR#: [id number] Acct: [id number] Name: MONISHA COHN Rep #:[id number] : 1940 84 From: Darline Lundy MD PCP: Tressa Rosales Status:ADM IN Location: MS3 [id number] Hospitalist Note 84y/o F with a history of coronary artery disease with RCA stent, Parkinson's disease, fibromyalgiaand overactive bladder, recent COVID diagnosis, who presented [facility] ED 01/20/2025 as a transfer from [place] ER after she was found to have an impacted right femoral neck fracture. Carla masterson was at [facility] when she sustained a mechanical fall on her right side and subsequently could not please ambulate to assess for home O2 needs. Was noted to have a scalp hematoma and metacarpal fracture of right hand but denied any loss of consciousness with the fall. [place] ED physician spoketo Dr. Tijerina withorthopedics who recommended admission to the hospital service with formal consultation for ORIF. Patient was transferred to a medical floor. # Impacted right intertrochanteric fracture of the femoral neck and metacarpal fracture right hand -After mechanical fall at [facility] -Ortho consulted -Patient n.p.o. -Pain control/supportive [...] Cosigner Signature (if applicable): CC: ~ Signed [facility]10-10-2025 History and physical note Author Stephan Beard [facility] Note Date/Time January 20, 2025 6 :54am [facility] Medical Records Department [address] [place] [address] H&P Exam - Hospitalist 01/20/25 0112 MR#: [id number] Acct: [id number] Name: MONISHA COHN Rep #:[id number] : 1940 84 From: Stephan Hernandez DO PCP: Tressa Rosales Status:ADM IN Location: [place] [id number] [facility] - General General Date of Admission: 01/20/25 Date of Service: 01/20/25 Chief Complaint: Fall with Right Hip Fracture. HPI Narrative MONISHA COHN, is a 84 F with a past medical history of essential hypertension; currently not on treatment, hyperlipidemia; on atorvastatin, former tobacco abuse; with subsequent COPD and pulmonary hypertension, CAD; with RCA stent at [facility] in [place] (2009) and subsequent inferior wall ST elevation [place] s/p RCA stent with cardiogenic shock and [...] recently diagnosed COVID-19 who was transferred from [facility] she was diagnosed with an impacted [...] LOC with her fall. Dr. [facility] spoke to Dr. Tijerina of the orthopedic service here who recommended admission to the hospitalist service with formal consultation pending in the a.m. for ORIF. She was then admitted to the generalmedical floor for ongoing care for stay that is expected to extend beyond 2 midnights. [facility] Medical History Nocturia Urge incontinence Overactive bladder Former tobacco use Depression Hypertension Fall [facility] (closed head injury) Presence of stent in coronary artery (~12/22/21) Atherosclerotic heart disease of [place] coronary artery without angina pectoris ST elevation [...] mg chewable tablet 125 mg PO QD-BID OK N abdominal 12/28/24 Unknown History (Mylanta Gas) [...] in AM. Give acetaminophen as needed for qwso-gc-qjafcqwh (level 1-5/10) pain or fever. Give morphine [...] before. 4. CAD; with RCA stent at [facility] in [place] (2009) and subsequent inferior wall ST elevation [place] s/p RCA stent with cardiogenic shock and [...] 75 minutes. Charges/Coding Visit Charges Inpatient E&M: 75347 Init Hosp L3 01/20/25 0654 <Electronically signed by Stephan Martel DO> Cosigner Signature (if applicable): CC: Dr. Stephan Martel DO; Tressa Rosales~ Signed [facility] Work Phone: [phone]) 785-287810-10-2025 History and physical note [facility] Medical Records Department [address] [place] [address] H&P Exam - Hospitalist 01/20/25 0112 MR#: [id number] Acct: [id number] Name: MONISHA COHN Rep #:[id number] : 1940 84 From: Stephan Hernandez DO PCP: Tressa Rosales Status:ADM IN Location: [place] [id number] [facility] - General General Date of Admission: 01/20/25 Date of Service: 01/20/25 Chief Complaint: Fall with Right Hip Fracture. HPI Narrative MONISHA COHN, is a 84 F with a past medical history of essential hypertension; currently not on treatment, hyperlipidemia; on atorvastatin, former tobacco abuse; with subsequent COPD and pulmonary hypertension, CAD; with RCA stent at [facility] in [place] (2009) and subsequent inferior wall ST elevation [place] s/p RCA stent with cardiogenic shock and [...] recently diagnosed COVID-19 who was transferred from [facility] she was diagnosed with an impacted [...] LOC with her fall. Dr. [facility] spoke to Dr. Tijerina of the orthopedic service here who recommended admission to the hospitalist service with formal consultation pending in the a.m. for ORIF. She was then admitted to the generalmedical floor for ongoing care for stay that is expected to extend beyond 2 midnights. [facility] Medical History Nocturia Urge incontinence Overactive bladder Former tobacco use Depression Hypertension Fall [facility] (closed head injury) Presence of stent in coronary artery (~12/22/21) Atherosclerotic heart disease of [place] coronary artery without angina pectoris ST elevation [...] mg chewable tablet 125 mg PO QD-BID OK N abdominal 12/28/24 Unknown History (Mylanta Gas) [...] in AM. Give acetaminophen as needed for tznq-dm-ymzsqnhc (level 1-5/10) pain or fever. Give morphine [...] before. 4. CAD; with RCA stent at [facility] in [place] (2009) and subsequent inferior wall ST elevation [place] s/p RCA stent with cardiogenic shock and [...] 75 minutes. Charges/Coding Visit Charges Inpatient E&M: 50722 Init Hosp L3 01/20/25 0654 Cosigner Signature (if applicable): CC: Dr. 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 CAD (coronary artery disease) chroni c September 27, 2024 10:37am Essential (primary) hypertension chr onic September 27, 2024 10:37am Hyperlipidemia chronic September 27, 2024 10:37am Non-rheumatic mitral regurgitation chronic September 27, 2024 10:37am Parkinsons disease chronic September 112024 10:37am [facility] Work Phone: [phone] 768-883706-17-2025 Evaluation note* Diagnosis Onset Date Resolution Status [...] 2024 12:46pm Parkinsons disease chronic 2024 12:46pm [facility] Work Phone: 1(382) 169-343806-17-2025 Progress [facility] [address] [place] [address] OFFICE VISIT Date of Service: 09/27/24 MR#: [id number] Acct: [id number] Name: MONISHA COHN Rep #: [id number] : 1940 Provider: Dr. Domingo Vernon MD Age/Sex: 84/F [place] [facility] [place] Status: Signed HPI HPI History of [...] NIBP Intake Visit Reasons: 6 M FU Human Resources Manager Required: No Accompanied by: Is patient in [...] past year?: Yes (no major injuries; 2) [facility] Medical History Atherosclerotic heart disease of [place] coronary artery without angina pectoris Bladder spasms [...] Supplemental Info Supplemental Information ECHOCARDIOGRAM 12/23/21 @ [facility] Left ventricular ejection fraction is normal, [...] tricuspid valve regurgitation Cath Intervention 12/20/09 @ [facility] [place] Percutaneous coronary angioplasty and stenting of the right coronary artery withtwo drug eluting stents 2.5x30mm and 2.5x12mm Cath Intervention 12/22/21 @ [facility] Percutaneous coronary intervention in the right coronary artery with a 2.75x22 mm MIKKI drug elutingstent Assessment and Plan Assessment and Plan (1) CAD (coronary artery disease): Status: Chronic Plan: History of inferior NJ. History of drug-eluting stents placement to the [...] Date (if applicable) CC: Tressa Rosales ~ [facility]06-17-2025 Progress note Author Danielle Vernon [facility] Note Date/Time September 27, 2024 11:5 1am [facility] [place] [id number] [facility] [place] [address] OFFICE VISIT Date of Service: 09/27/24 MR#: [id number] Acct: [id number] Name: MONISHA COHN Rep #: [id number] : 1940 Provider: Dr. Domingo Vernon MD Age/Sex: 84/F Location: [facility] Status: Signed HPI HPI History of [...] NIBP Intake Visit Reasons: 6 M FU Human Resources Manager Required: No Accompanied by: Is patient in [...] past year?: Yes (no major injuries; 2) [facility] Medical History Atherosclerotic heart disease of [place] coronary artery without angina pectoris Bladder spasms [...] Supplemental Info Supplemental Information ECHOCARDIOGRAM 12/23/21 @ [facility] Left ventricular ejection fraction is normal, [...] tricuspid valve regurgitation Cath Intervention 12/20/09 @ [facility] [place] Percutaneous coronary angioplasty and stenting of the right coronary artery withtwo drug eluting stents 2.5x30mm and 2.5x12mm Cath Intervention 12/22/21 @ [facility] [place] Percutaneous coronary intervention in the right coronary artery with a 2.75x22 mm MIKKI drug eluting stent Assessment and Plan Assessment and Plan (1) CAD (coronary artery disease): Status: Chronic Plan: History of inferior [place]. History of drug-eluting stents placement to the [...] Date (if applicable) CC: Tressa Rosales ~ [facility] Work Phone: [phone] Instructions* Patient Instructions* Armen Madison MD - [...] effects of this neuropathy. [facility] History of Present illness Narrative* Armen Madison MD - 07/29/2024 3:00 PM EDT [facility] New Patient Visit Note Consultation [...] which included preparing to see the patient, lqah-ou-emaf patient care, completing clinical documentation, performing a medically appropriate examination, counseling and educating the patient/family/caregiver, and ordering medications, tests,or procedures. Armen Madison MD Neuromuscular Medicine (NM) Staff [facility], [facility] documented in this encounterCoshoct[facility]04-18-2025 NoteHNO ID: [id number] Author: ARMEN MADISON MD Service: ? Author Type: Physician Type: Progress Notes Filed: 07/29/2024 15:33 Note Text: [facility] New Patient Visit Note Consultation [...] will be communicated to the patient via telephone/SendRRhart. Patient to call office if not contacted after expected testing turnaround time. I spent a total of 34 minutes on the date of the service which included prepari (more content not included)...[facility]03-18-2025 Instructions* Patient Instructions* Em Flynn APRN.CNP [...] or you can send a message through [employer]Page[employer]. You can also now schedule and select appointments through [employer]. Em Flynn APRN.RUPALI documented in this encounterCoshocton [facility]03-18-2025 History of Present illness Narrative* Em Flynn APRN.RUPALI - 06/28/2024 8:00 AM EDT [facility] - FOLLOW UP EVALUATION The patient consented to the use of ambient Fenergo software for draft documentation of the visit consistent with [facility] s Notice of Privacy Practices. Alexandra Arreguin APRN.RUPALI [address] [address] Dear Alexandra Arreguin APRN.CNP: I had the [...] directives (living will and durable power of commercial real estate attorney for healthcare): By Email: Send your document(s) to as an attachment in either PDF, TIFF, or JPEG format. By Mail: [facility] Information Management, Ab7 Advance Directive Processing [address] [place], [place] [address] By In person at any [facility] location Please note: You can use the address or fax number regardless of which [facility] you utilize, and we will make sure [...] to being in heaven due to her Christianity mark, which some people misinterpret as depression. [...] c) the amplitude decrements startingafter the 1st aatk-rdi-mzvel sequence. Hand Movements Left 2-Mild. a) 3 [...] or around: 12/29/24 Level of service : 41034 (40-68 min). Time spent 59 min on the day of service, which included preparing to see the patient, jbvx-vh-yckt patient care, completing clinical documentation, obtaining and/or reviewing separately obtained history, performing a medically appropriate examination, counseling and educating the patient/family/caregiver, and ordering medications, tests, or procedures. Em Flynn APRN.RUPALI documented in this encounterCoshocton [facility] Center03-18-2025 NoteHNO ID: [id number] Author: EM FLYNN APRN.CNP Service: ? Author Type: Nurse Practitioner Type: Progress Notes Filed: 06/28/2024 23:22 Note Text: [facility] - FOLLOW UP EVALUATION The patient consented to the use of ambient Fenergo software for draft documentation of the visit consistent with [facility]?s Notice of Privacy Practices. Alexandra Arreguin APRN.CNP [address] [address] Dear Alexandra Arreguin APRN.SCHOOL ADMISSIONS REPRESENTATIVE: I had the pleasure of seeing Ms. [...] directives (living will and durable power of commercial real estate attorney for healthcare): By Email: Send your document(s) to as an attachment in either PDF, TIFF, or JPEG format. By Mail: [facility] Information Management, Ab7 Advance Directive Processing [address] [place], [place] [address] By In person at any [facility] location Please note: You can use the address or fax number regardless of which [facility] you utilize, and we will make sure [...] past who are n (more content not included)...[facility] 06-03-2024 Nuclear medicine Diagnostic study note [facility] Imaging Services [address] [place] [address] Hepatobilliary Img w/Pharm Int MR#: [id number] Acct: [id number] Name: MONISHA COHN Rep #: [id number] : 1940 F 84 From: Alejandro Tomlin MD PCP: Tressa Rosales Status: REG CLI Study:Hepatobilliary Img w/Pharm Int Date of Exam: 06/03/24 Exam# [id number] Ordering Dr: Deanna Lujan NP INSURANCE OFFICE SUPERVISOR-C PROCEDURE: HEPATOBILLIARY IMG W/PHARM INT REASON FOR [...] SCAN AND GALLBLADDER EJECTION FRACTION. Reading Location: [place] [address] CC: Didi VAZQUEZ NP-Mariajose Lujan; Tressa Rosales ~ Landscape Laborer: Signed [facility]12-04-2024 Evaluation note* Diagnosis Onset Date Resolution Status Admit Date Argyria chronic March 16, 2024 8:48am CAD (coronary artery disease) chroni c March 16, 2024 8:48am Essential (primary) hypertension chronic March 16 8:48am Hyperlipidemia chronic March 162023 8:48am Non-rheumatic mitral regurgitation chronic March 16 8:48am Parkinsons disease chronic Dece 2023 8:48am [facility] Work Phone: [phone] 150-507409-19-2024 Instructions* Patient Instructions* Em Flynn APRN.SCHOOL ADMISSIONS REPRESENTATIVE - 12/31/2023 9:49 AM EDT It was [...] directives (living will and durable power of commercial real estate attorney for healthcare): By Email: Send your document(s) to as an attachment in either PDF, TIFF, or JPEG format. By Mail: [facility] Information Management, Ab7 Advance Directive Processing [address] [place], [place] [address] By In person at any [facility] location Please note: You can use the address or fax number regardless of which [facility] you utilize, and we will make sure it is filed appropriately. Movement Disorders Medication Schedule: Medications 8AM 12PM 4PM 8PM Sinemet 25/100 2 1.5 1.5 1.5 Return at or around: 03/31/24 If there are any concerns before your next visit, please call or you can send a message through 24PageBooks. You can also now schedule and select appointments through 24Page[employer]. Em Flynn APRN.RUPALI documented in this encounterCoshocton [facility] Center09-19-2024 History of Present illness Narrative* Em Flynn APRN.RUPALI - 12/31/2023 9:00 AM EDT [facility] - FOLLOW UP EVALUATION Alexandra Arreguin APRN.CNP [address] [facility] [address] [facility] [address] Dear Alexandra Arreguin APRN.CNP: I had the [...] Double vision: Please follow up with your net washer as scheduled Interested in clinical research? Not [...] other sensations: She is seen by an junk removal specialist for her hip. Speech/Swallowing Speech problems: [...] c) the amplitude decrements startingafter the 1st nsyl-uha-vaphr sequence. (She has a trigger finger) Hand [...] directives (living will and durable power of commercial real estate attorney for healthcare): By Email: Send your document(s) to as an attachment in either PDF, TIFF, or JPEG format. By Mail: [facility] Information Management, Ab7 Advance Directive Processing [address] [place], [place] [address] By In person at any [facility] location Please note: You can use the address or fax number regardless of which [facility] you utilize, and we will make sure it is filed appropriately. Updated Movement Disorders Medication Schedule: Medications 8AM 12PM 4PM 8PM Sinemet 25/100 2 1.5 1.5 1.5 Return at or around: 03/31/24 Level of service : 76539 ( 30-39 min). Time spent 39 min on the day of service, which included preparing to see the patient, zhfd-ce-ahnp patient care, completing clinical documentation, obtaining and/or reviewing separately obtained history, performing a medically appropriate examination, counseling and educating the patient/family/caregiver, and ordering medications, tests, or procedures. Em Flynn APRN.RUPALI documented in this encounterCoshocton [facility] Center08-09-2024 Note* Letter - Coordinator, Mammography - 11/20/2023 10:34 AM EDT November 20, 2023 PID: [id number] Monisha Brink [address] [place] [address] Dear Ms. Cohn, We are pleased to [...] report will be kept on file at [facility] as part of your permanent medical record and are available for your continuing care. Thank you for allowing us to help in meeting your health care needs. Sincerely, Dr. George Interpreting Radiologist [facility] (Normal over 40) [facility]08-09-2024 Note* Letter - Coordinator, Mammography - 11/20/2023 10:34 AM EDT November 20, 2023 PID: [id number] Monisha Keena [address] [place] [address] Dear Ms. Cohn, We are pleased to [...] report will be kept on file at [facility] as part of your permanent medical record and are available for your continuing care. Thank you for allowing us to help in meeting your health care needs. Sincerely, Dr. George Interpreting Radiologist [facility] (Normal over 40) [facility]08-09-2024 Miscellaneous Notes* Letter - Coordinator, Mammography - 11/20/2023 10:34 AM EDT November 20, 2023 PID: [id number] Monisha Songtke [address] [place] [place] [address] Dear Ms. Cohn, We are pleased to [...] report will be kept on file at [facility] as part of your permanent medical record and are available for your continuing care. Thank you for allowing us to help in meeting your health care needs. Sincerely, Dr. George Interpreting Radiologist [facility] (Normal over 40) * Letter - Coordinator, Mammography - 11/20/2023 10:34 AM EDT November 20, 2023 PID: [id number] Monisha Songtke [address] [place] [address] Dear Jorgito Cohn, We are pleased to [...] report will be kept on file at [facility] as part of your permanent medical record and are available for your continuing care. Thank you for allowing us to help in meeting your health care needs. Sincerely, Dr. George Interpreting Radiologist [facility] (Normal over 40) documented in this encounterCoshocton Regional Medical Center08-09-2024 History of Present illness Narrative* Chitra Larson Tech - 11/20/2023 7:45 AM EDT Radiology Service Progress Note PATIENT NAME: Monisha PANTOJAN: [id number] DATE OF SERVICE: November 20, 2023 TIME: [...] PATIENT PRESENTS WITH AN IMPLANTABLE OR ATTACHED TOBY MAKER: No RADIOLOGY DEPARTMENT: Mammography PERIPHERAL IV DATA: Not applicable SIGNED BY: Valentin Manzanares November 20, 2023 9:23 AM documented in this encounterCoshocton Regional Medical Center07-10-2024 Telephone encounter Note * Telephone Encounter - Rosie Cruz RN - 10/21/2023 10:01 AM EDT Received [place] 10-20-23 at 12:28 PM. Ks this is Rissa at [facility]. Calling in regards to Monisha Cohn. 42. She gotan order from the orthopedic to do therapy which they have started but they wanted to know what wastorn and I believe Dr. Sheehan was the one who did the MRI, or read the MRI. If someone could fax us over the notes they would appreciate it. The fax number is [phone]. If you have any questions you can call me back at [phone]. Thank you. Last office visit note with Stephan Sheehan PA-C & imaging report faxed to [facility] PT department. [facility]07-10-2024 Miscellaneous Notes* Telephone Encounter - Rosie Cruz RN - 10/21/2023 10:01 AM EDT Received voicemail 10-20-23 at 12:28 PM. Hi this is Rissa at [facility]. Calling in regards to Monisha Cohn. 42. She gotan order from the orthopedic to do therapy which they have started but they wanted to know what wastorn and I believe Dr. Sheehan was the one who did the MRI, or read the MRI. If someone could fax us over the notes they would appreciate it. The fax number is [phone]. If you have any questions you can call me back at [phone]. Thank you. Last office visit note with Stephan Sheehan PA-C & imaging report faxed to [facility] PT department. documented in this encounterCoshocton Regional Medical Center07-05-2024 Telephone encounter Note * Telephone Encounter - Karolina Sanders RN - 10/16/2023 2:31 PM EDT Called back number and spoke with therapist. Told her Yara's note Range of motion and rotator cuffstrengthening Claudia Wood PA-C [facility] Work Phone: [phone]) 667-512807-05-2024 Miscellaneous Notes* Telephone Encounter - Karolina Sanders [...] for the patient, please call facility at [phone], they alsoasked if we could send any office visit notes. documented in this encounterCoshocton Regional Medical Center07-05-2024 Telephone encounter Note * Telephone Encounter - Edwina Flanagan - 10/16/2023 10:02 AM EDT Patient is staying at a facility and is going physical therapy there. They were inquiring about what specific program needs to be done for the patient, please call facility at [phone], they alsoasked if we could send any office visit notes. [facility]06-21-2024 History of Present illness Narrative* Yury Jasso MD - 10/02/2023 8:54 AM EDTAssociated Order(s): Large Joint Arthro/Inj: L shoulder joint Post-Procedure Diagnose(s): Acute pain of left shoulder Images from the original note were not included. ORTHOPAEDIC SHOULDER & ELBOW SERVICE HISTORY & PHYSICAL EXAM REFERRING PROVIDER: Stephan Sheehan [address] [place], [place] [id number] CHIEF COMPLAINT: left shoulder pain PAIN EVALUATION 10/02/2023 0852 Pain Location: Shoulder-Left Description: Radiating;Aching;Sharp radiates to elbow, also to wrist Frequency: Continuous Intervention/Comfort measure: Heat;Medication;Reposition;Relaxation;Exercise tylenol, tramadol Comments: [facility] Monisha Cohn is a 83 year [...] negative Drop arm test: negative Biceps/bambi Signs Cavalier's test: positive Michael deformity: negative Speed's test: [...] REFERRING PHYSICIAN: The patient was referred to vt for consultation by the following physician. This consultation note will be sent to the following physician by either mail or electronic medical record. Stephan Sheehan [address] [place] [id number] Yury Jasso MD Shoulder & Elbow Surgeon Department of Orthopaedic Surgery [facility] documented in this encounterCoshocton Regional Medical Center06-18-2024 History of Present illness Narrative* Kelly [...] PATIENT PRESENTS WITH AN IMPLANTABLE OR ATTACHED TOBY MAKER: No RADIOLOGY DEPARTMENT: General X-ray: Exam(s) Completed: Upper Extremity X- Ray(s): Shoulder, TRUE AP/ AXILLARY / SUPRA OUTLET left PERIPHERAL IV DATA: Not applicable SIGNED BY: Valentin Siddiqui September 29, 2023 10:18 AM documented in this encounterCoshocton Regional Medical Center06-18-2024 NoteHNO ID: [id number] Author: KELLY STEWART Tech Service: Radiology Author Type: Settlement Clerk Type: Progress Notes Filed: 09/29/2023 10:18 Note [...] PATIENT PRESENTS WITH AN IMPLANTABLE OR ATTACHED TOBY MAKER: No RADIOLOGY DEPARTMENT: General X-ray: Exam(s) Completed: Upper Extremity X-Ray(s): Shoulder, TRUE AP / AXILLARY / SUPRA OUTLET left PERIPHERAL IV DATA: Not applicable SIGNED BY: Valentin Siddiqui September 29, 2023 10:18 AM[facility] [id number] Instructions* Patient Instructions* Em Flynn APRN.SCHOOL ADMISSIONS REPRESENTATIVE - 09/29/2023 9:38 AM EDT It was [...] Double vision: Please follow up with your net washer as scheduled Interested in clinical research? Not currently Movement Disorders Medication Schedule: Medications 8AM 12PM 4PM 8PM Sinemet 25/100 2 1.5 1.5 1.5 Return at or around: 12/30/23 If there are any concerns before your next visit, please call or you can send a message through [employer]. You can also now schedule and select appointments through [employer]. Em Flynn APRN.RUPALI documented in this encounterCoshocton Regional Medical Center06-18-2024 History of Present illness Narrative* Em Flynn APRN.CNP - 09/29/2023 9:00 AM EDT [facility] - FOLLOW UP EVALUATION Alexandra Arreguin APRN.SCHOOL ADMISSIONS REPRESENTATIVE [address] [address] Dear Alexandra Arreguin APRN.SCHOOL ADMISSIONS REPRESENTATIVE: I had the pleasure of seeing Ms. [...] 10points or more) please discuss with your medical receptionist assistant. Hallucinations: I am hoping that the reduction in Sinemet helps these, but if it does not and they are bothering you, please let me know. Dysphagia (difficulty swallowing): I am ordering speech therapy for this and your quiet speech Double vision: Please follow up with your net washer Left arm pain/numbness and tingling: I have [...] them. These started before she moved to [place] and after she had her heart attack while in the hospital. Apathy: no She has motivation and is trying really hard to get out of the facility and move back [facility]. Impulse control disorder: No Palliative Concerns: Caregiver burden: Spiritual concerns: No Advanced directives on file: No I offered a SW consult but she wants to wait until she moves back to [place]. Palliative services: Therapy and Exercise: Last PT [...] the amplitude decrements starting after the 1st sxtm-smk-brmqt sequence. Arm Movements Right 1-Slight. a) the [...] Double vision: Please follow up with your net washer as scheduled Interested in clinical research? Not currently Updated Movement Disorders Medication Schedule: Medications 8AM 12PM 4PM 8PM Sinemet 25/100 2 1.5 1.5 1.5 Return at or around: 12/30/23 Level of service : 31650 ( 30-39 min). Time spent 37 min on the day of service, which included preparing to see the patient, vkep-px-kyuo patient care, completing clinical documentation, obtaining and/or reviewing separately obtained history, performing a medically appropriate examination, counseling and educating the patient/family/caregiver, and ordering medications, tests, or procedures. Em Flynn APRN.SCHOOL ADMISSIONS REPRESENTATIVE documented in this encounterCoshocton Regional Medical Center06-12-2024 NoteIMPRESSION: INCOMPLETE: NEEDS ADDITIONAL IMAGING EVALUATION Probable benign nodule retroareolar region LEFT breast found using tomosynthesis today. Benign-appearing asymmetric glandular tissue upper outer aspect LEFT breast. Ultrasound correlation will be performed. LIMITED ULTRASOUND OF LEFT BREAST: 09/23/2023 RESULT: Comparison is made to exam dated: 08/13/2023 mammogram - [facility]. Ultrasound of was performed. Imaging [...] screening schedule is recommended. Ajay Bullock M.D. [facility]/gi:09/23/2023 10:55:35 Multiple national specialty organizations have released breast cancer screening guidelines for women at average risk for developing breast cancer - guidelines that are based on both evidence and opinion, yet differ on when to start and how often to screen for breast cancer. With representation from Breast Imaging, Internal Medicine, Women's Health, Family Medicine, and Medical/Surgical Oncology, the [facility] has carefully reviewed the data and [...] their providers when to stop screening mammograms. Rotary Drum Tanner(s): RT Yumiko(R)(Tonie), [facility]; RT Nicole(R), [facility] OVERALL STUDY BIRADS: 2 Benign finding Landscape Laborer: Gi Transcribe Date/Time: Sep 23 2023 9:21A Dictated by : AJAY BULLOCK MD This examination was interpreted and the report reviewed and electronically signed by: AJAY BULLOCK MD on Sep 23 2023 10:55AM [facility] [id number] History of Present illness Narrative* Tiago Mcnamara [...] PATIENT PRESENTS WITH AN IMPLANTABLE OR ATTACHED TOBY MAKER: No RADIOLOGY DEPARTMENT: Mammography PERIPHERAL IV DATA: [...] PATIENT PRESENTS WITH AN IMPLANTABLE OR ATTACHED TOBY MAKER: No RADIOLOGY DEPARTMENT: Ultrasound PERIPHERAL IV DATA: Not applicable SIGNED BY: Virginie Rios RDMS September 23, 2023 10:39 AM documented in this encounterCoshocton Regional Medical Center06-12-2024 NoteHNO ID: [id number] Author: TIAGO MCNAMARA CT Service: Radiology Author [...] PATIENT PRESENTS WITH AN IMPLANTABLE OR ATTACHED TOBY MAKER: No RADIOLOGY DEPARTMENT: Mammography PERIPHERAL IV DATA: Not applicable SIGNED BY: RT Yumiko September 23, 2023 9:42 [facility] [id number] NoteHNO ID: [id number] Author: VIRGINIE RIOS RDMS Service: Radiology Author Type: Teacher Of Family And Consumer Science Type: Progress Notes Filed: 09/23/2023 10:39 Note [...] PATIENT PRESENTS WITH AN IMPLANTABLE OR ATTACHED TOBY MAKER: No RADIOLOGY DEPARTMENT: Ultrasound PERIPHERAL IV DATA: Not applicable SIGNED BY: Virginie Rios RDMS September 23, 2023 10:39 [facility] [id number] Telephone encounter Note* Telephone Encounter - Mary Ann Villalobos - 09/02/2023 1:18 PM EDT Received call from Rissa at [facility]. Patient would like to complete Physical Therapy on-site at the facility. Order for PT faxed to their facility via [employer]. Mary Ann Villalobos [facility]05-22-2024 Miscellaneous Notes* Telephone Encounter - Mary Ann Villalobos - 09/02/2023 1:18 PM EDT Received call from Rissa at [facility]. Patient would like to complete Physical Therapy on-site at the facility. Order for PT faxed to their facility via [employer]. Mary Ann Villalobos documented in this encounterCoshocton Regional Medical Center05-16-2024 History of Present illness Narrative* Stephan Sheehan PA-C - 08/27/2023 1:40 PM EDT Images from the original note were not included. Stephan Sheehan PA-C [facility] [address] [place] [address] 08/27/2023 ASSESSMENT AND PLAN: Assessment : Encounter [...] today with this patient visit. This includes hgvg-xu-cnvn time, review of chart records regarding conservative care history, spine- pertinent imaging, and communication/care coordination with referring provider, problem-specific history-taking and counseling/education regarding treatment options. cc: Em Flynn [address] [address] Results of consultation to be transmitted via electronic medical record for those providers who practice within [facility] or with access to [employer] via [employer], or via letter. ######################################################################## [...] L: 5/5 Triceps R: 5/5 L: 4/5 Master Certified Rv Technician R: 5/5 L: 5/5 Interossei R: +4/5 [...] STUDIES: See discussion above documented in this encounterCoshocton Regional Medical Center05-03-2024 Note* Letter - Coordinator, Mammography - 08/14/2023 11:00 AM EDT August 14, 2023 PID: [id number] Monisha Cohn [address] [place] [address] Dear Ms. Cohn, Your recent breast imaging [...] so).Additional Imaging cannot be self scheduled in [employer]. If you DO NOT have a healthcare provider (ie you did not have an order/prescription for your screening mammogram): Please call to schedule an appointment for your additional imaging (if you have not already done so). Additonal Imaging cannot be self scheduled in [employer]. This exam cannot be self scheduled in [employer]. You must have an order/prescription from your physician when calling to schedule your appointment. If your order/prescription is not electronic, you must bring the hard copy with you on the day of your exam Your imaging studies and reports are kept on file at [facility] as part of your permanent medical record, and are available for your continuing care. Thank you for allowing us to help in meeting your health care needs. Sincerely, Dr. Castellanos Interpreting Radiologist [facility] (Additional imaging) [facility]05-03-2024 Miscellaneous Notes* Letter - Coordinator, Mammography - 08/14/2023 11:00 AM EDT August 14, 2023 PID: [id number] Monisha Songtke [address] [place] [place] [address] Dear Ms. Cohn, Your recent breast imaging [...] so).Additional Imaging cannot be self scheduled in [employer]. If you DO NOT have a healthcare provider (ie you did not have an order/prescription for your screening mammogram): Please call to schedule an appointment for your additional imaging (if you have not already done so). Additonal Imaging cannot be self scheduled in [facility]. This exam cannot be self scheduled in [facility]. You must have an order/prescription from your physician when calling to schedule your appointment. If your order/prescription is not electronic, you must bring the hard copy with you on the day of your exam Your imaging studies and reports are kept on file at [facility] as part of your permanent medical record, and are available for your continuing care. Thank you for allowing us to help in meeting your health care needs. Sincerely, Dr. Castellanos Interpreting Radiologist [facility] (Additional imaging) documented in this encounterCoshocton Regional Medical Center05-02-2024 History of Present illness Narrative* Tiago [...] PATIENT PRESENTS WITH AN IMPLANTABLE OR ATTACHED TOBY MAKER: No RADIOLOGY DEPARTMENT: Bone Density and Mammography PERIPHERAL IV DATA: Not applicable SIGNED BY: ANCA López August 13, 2023 2:15 PM documented in this encounterCoshocton Regional Medical Center05-02-2024 NoteHNO ID: [id number] Author: TIAGO MCANMARA CT Service: Radiology Author Type: Technologist Type: [...] PATIENT PRESENTS WITH AN IMPLANTABLE OR ATTACHED TOBY MAKER: No RADIOLOGY DEPARTMENT: Bone Density and Mammography PERIPHERAL IV DATA: Not applicable SIGNED BY: ANCA López August 13, 2023 2:15 PMOhio [facility] University [facility] Medical [id number] Telephone encounter Note* Telephone Encounter - Em Flynn APRN.SCHOOL ADMISSIONS REPRESENTATIVE - 08/03/2023 6:17 PM EDT I called and reviewed her results with her and let her know that I did communicate with a spine medicine provider who also reviewed her cervical spine MRI. He recommended that she start with spine medicine so I will have our schedulers call to set this up. She said they need to arrange this with Rissa at the [facility] as this is the individual who would drive her to her appointments. STONE Lockhart [facility]04-22-2024 Miscellaneous Notes* Telephone Encounter - Em [...] to arrange this with Rissa at the [facility] as this is the individual who would drive her to her appointments. STONE Lockhart documented in this encounterCoshocton Regional Medical Center03-25-2024 Instructions* Patient Instructions* Em Flynn APRN.CNP [...] 10points or more) please discuss with your medical receptionist assistant. Date/Time BP Sitting Heart Rate Sitting BP Standing Heart Rate Standing Hallucinations: I am hoping that the reduction in Sinemet helps these, but if it does not and they are bothering you, please let me know. Dysphagia (difficulty swallowing): I am ordering speech therapy for this and your quiet speech Vision changes: Please follow up with your net washer. Left arm pain/numbness and tingling: I have ordered a neck MRI. Movement Disorders Medication Schedule: Medications 8AM 12PM 4PM 8PM Sinemet 25/100 2 1.5 1.5 1.5 Return in about 3 months (around 10/06/2023). If there are any concerns before your next visit, please call or you can send a message through [employer]. You can also now schedule and select appointments through [employer]. Em Flynn APRN.RUPALI documented in this encounterCoshocton Regional Medical Center03-25-2024 History of Present illness Narrative* Em Flynn APRN.CNP - 07/06/2023 8:22 AM EDT [facility] - FOLLOW UP EVALUATION Alexandra Arreguin APRN.SCHOOL ADMISSIONS REPRESENTATIVE [address] [address] Dear Alexandra Arreguin APRN.CNP: I had the [...] points or more) please discuss with your medical receptionist assistant. Date/Time BP Sitting Heart Rate Sitting BP [...] They still want to move back to [place]. She was discharged from physical therapy. She [...] them. These started before she moved to [place] and after shehad her heart attack while in the hospital. Apathy: no She has motivation and is trying really hard to get out of the facility. Impulse control disorder: No Palliative Concerns: Caregiver burden: Spiritual concerns: No Advanced directives on file: No I offered a SW consult but she wants to wait until she moves back to [place]. Palliative services: Therapy and Exercise: Last PT [...] the amplitude decrements starting after the 1st mdda-pcz-vmhih sequence. Arm Movements Right 1-Slight. a) the [...] 10points or more) please discuss with your medical receptionist assistant. Date/Time BP Sitting Heart Rate Sitting BP Standing Heart Rate Standing Hallucinations: I am hoping that the reduction in Sinemet helps these, but if it does not and they are bothering you, please let me know. Dysphagia (difficulty swallowing): I am ordering speech therapy for this and your quiet speech Vision changes: Please follow up with your net washer. Left arm pain/numbness and tingling: I have ordered a neck MRI. Updated Movement Disorders Medication Schedule: Medications 8AM 12PM 4PM 8PM Sinemet 25/100 2 1.5 1.5 1.5 Level of service : 11403 (40-54 min). Time spent 45 min on the day of service, which included preparing to see the patient, ilmb-sd-narw patient care, completing clinical documentation, obtaining and/or reviewing separately obtained history, performing a medically appropriate examination, counseling and educating the patient/family/caregiver, and ordering medications, tests, or procedures. Em Flynn APRN.SCHOOL ADMISSIONS REPRESENTATIVE documented in this encounterCoshocton Regional Medical Center01-19-2024 Discharge summary Author Law Gold [facility] May 01, 2023 4:21pm Note Date/Time May 01, 2023 1 :42pm [facility] Medical Records Department [address] [place] [address] Emergency Department Summary 05/01/23 MR#: [id number] Acct: [id number] Name: MONISHA COHN Rep #:[id number] : 1940 83 From: Law Long[place] [...] any other injuries. Patient denies any lacerations. [facility] Medical History Atherosclerotic heart disease of [place] coronary artery without angina pectoris Bladder spasms [...] motor deficits and no sensory deficits noted [facility] Coma Scale: document GCS findings Spontaneous Obeys [...] % (Auto) 62.2 Lymph % (Auto) 19.9 [place] % (Auto) 11.6 H Eos % (Auto) [...] Alexandra Arreguin NP Referrals: Alexandra Arreguin NP, INSURANCE OFFICE SUPERVISOR-C [Primary Care Provider] - 5-7 Days Disposition Disposition: Home, Self Care What to do if you have Problems For any increased pain, shortness of breath, bleeding, nausea or vomiting, chestpain, or any unexpected problems, contact your Primary Care Provider. Call [facility] ([phone]) or report to the closest Emergency Room. Call 911 if necessary. 05/01/23 1621 <Electronically signed by Law Gold DO> Cosigner Signature (if applicable): CC: INSURANCE OFFICE SUPERVISOR-C Alexandra Arreguin ~ Signed [facility] Work Phone: 1(577) 979-266010-27-2023 Discharge summary Author Darline Lundy [facility] February 06, 2023 2:09pm Note Date/Time February 06, 2023 1 2:33pm [facility] Medical Records Department [address] [place] [address] Transfer to [facility] MR#: [id number] Acct: [id number] Name: MONISHA COHN Rep #:[id number] : 1940 82 From: Darline Lundy MD PCP: JACQUI Ann Status:ADM IN Certification of patient admission REQUIRED AT TIME OF ADMISSION. I CERTIFY THAT POST-HOSPITAL ECF SERVICES ARE REQUIRED TO BE GIVEN ON AN IN-PATIENT BASIS BECAUSE OF THE ABOVE NAMED PATIENT'S NEED FOR SENIOR LIVING CARE ON A CONTINUING BASIS FOR THE [...] skin hue, Obesity who presents to the [facility] ED on 02/01/23 with history [...] - Active Staff] - 02/18/23 Alexandra Arreguin INSURANCE OFFICE SUPERVISOR, INSURANCE OFFICE SUPERVISOR-C [Primary Care Provider] - Disposition Disposition (needs filled in before D/C Order can be placed): [facility] Facility (1) Closed hip fracture Qualifiers: Encounter type: initial encounter Laterality: left Qualified Code(s): S72.002A - Fracture of unspecified part of neck of left femur, initial encounterfor closed fracture 02/06/23 1233 <Electronically signed by Darline Lundy MD> Cosigner Signature (if applicable): CC: INSURANCE OFFICE SUPERVISOR-C Alexandra Arreguin; Dr. Jasmin Steele MD; Dr. Davian Grier DO ~ ADDENDUM by Dr. Darline Lundy MD on 02/06/23 at 1409 Addendum COREG STOPPED D/T BP STILL BEING ON LOW SIDE, PT ASYMPTOMATIC HOWEVER, NO OTHER CHANGES MADE 02/06/23 1409 <Electronically signed by Darline Lundy MD> cc: INSURANCE OFFICE SUPERVISOR-Mariajose Arreguin; Dr. Jasmin Steele MD; Dr. Davian Grier DO ~* Signed [facility] Work Phone: [phone] Discharge summary Author Darline Lundy [facility] February 06, 2023 2:09pm Note Date/Time February 06, 2023 1 2:35pm [facility] Medical Records Department [address] [place], [place] [address] [address] Discharge Summary 02/06/23 1234 MR#: [id number] Acct: [id number] Name: MONISHA COHN Rep #:[id number] 8 : 1940 82 From: Darline Lundy MD PCP: JACQUI Ann Status:ADM IN Location: [facility] [place] AR563-7 Providers Date of Admission: 02/01/23 Date of [...] skin hue, Obesity who presents to the [facility] ED on 02/01/23 with history [...] skin hue, Obesity who presents to the [facility] ED on 02/01/23 with history [...] % (Auto) 55.6, Lymph % (Auto) 30.5, [place] % (Auto) 10.2 H, Eos % (Auto) [...] Active Staff] - 02/18/23 Alexandra Arreguin NP, INSURANCE OFFICE SUPERVISOR-C [Primary Care Provider] - Disposition Disposition (needs filled in before D/C Order can be placed): [facility] Facility Charges/Coding Visit Charges Inpatient E&M: 37280 Disch Hosp >30min 02/06/23 1235 <Electronically signed [...] Arreguin; Dr. Darline Lundy MD ~* Signed [facility] Work Phone: 1([phone]) 966-183710-26-2023 Progress note Author Darline Lundy [facility] February 05, 2023 5:07pm Note Date/Time February 05, 2023 4 :55pm [facility] Medical Records Department [address] [place] [address] [place] [address] Progress Note - Hospitalist 02/05/23 1651 MR#: [id number] Acct: [id number] Name: MONISHA COHN Rep #:[id number] 6 : 1940 82 From: Darline Lundy MD PCP: Alexandra Arreguin, INSURANCE OFFICE SUPERVISOR-C Status:ADM IN Location: [facility] [place] LN694-3 Reason for Visit Reason for Visit: Diagnoses [...] (Auto) 67.7, Lymph % (Auto) 18.8 L, [place] % (Auto) 11.3 H, Eos % (Auto) [...] documentation, 26minutes Charges/Coding Visit Charges Inpatient E&M: 87962 Subs Hosp L1 02/05/23 1707 <Electronically signed by Darline Lundy MD> Cosigner Signature (if applicable): CC: ~ Signed [facility] Work Phone: 1(524) 316-314410-25-2023 Progress note Author Darline Lundy [facility] February 04, 2023 8:56am Note Date/Time February 04, 2023 7 :12am [facility] Medical Records Department [address] [place] [address] Progress Note - Hospitalist 02/04/23 0710 MR#: [id number] Acct: [id number] Name: MONISHA COHN Rep #:[id number] 6 : 1940 82 From: Darline Lundy MD PCP: Alexandra Arreguin, INSURANCE OFFICE SUPERVISOR-C Status:ADM IN Location: MS3 PU574-6 Reason for Visit Reason for Visit: Diagnoses [...] 70.8 H, Lymph % (Auto) 15.0 L, [place] % (Auto) 12.4 H, Eos % (Auto) [...] documentation, 40minutes Charges/Coding Visit Charges Inpatient E&M: 73038 Subs Hosp L2 02/04/23 0856 <Electronically signed by Darline Lundy MD> Cosigner Signature (if applicable): CC: ~ Signed [facility] Work Phone: 1([phone]) 568-284310-24-2023 Progress note Author Darline Lundy [facility] February 03, 2023 10:04am Note Date/Time February 03, 2023 7 :22am [facility] Medical Records Department [address] [place] [address] Progress Note - Hospitalist 02/03/23 0717 MR#: [id number] Acct: [id number] Name: MONISHA COHN Rep #:[id number] 2 : 1940 82 From: Darline Lundy MD PCP: JACQUI Ann Status:ADM IN [facility] Reason for Visit Reason for Visit: Diagnoses [...] 71.1 H, Lymph % (Auto) 14.6 L, [place] % (Auto) 13.2 H, Eos % (Auto) [...] documentation, 40minutes Charges/Coding Visit Charges Inpatient E&M: 71215 Subs Hosp L2 02/03/23 1004 <Electronically signed by Darline Lundy MD> Cosigner Signature (if applicable): CC: ~ Signed [facility] Work Phone: 1(275) 648-778210-24-2023 Progress note Author Jaylon Boone [facility] February 03, 2023 7:05am Note Date/Time February 03, 2023 7 :05am [facility] Medical Records Department [facility] [place] [address] Progress Note - Hospitalist 02/03/23 07 MR#: [id number] Acct: [id number] Name: MONISHA COHN Rep #:[id number] 4 : 1940 82 From: Jaylon Fontana PCP: JACQUI Ann Status:ADM IN Location: [place] [address] Hospitalist Note Since hemoglobin dropped from 9.1-5.6 after surgery. Most likely acute blood loss after surgery, postop anemia. Units PRBC type and crossmatch and transfuseslowly. Patient had a STEMI in December 2021. Aspirin hold. Plavix currentlydiscontinued but informed the attending and might resume when bleeding is stable. 02/03/23704 <Electronically signed by Jaylon Boone MD> Cosigner Signature (if applicable): CC: ~ Signed [facility] Work Phone: 1(189) 482-323210-24-2023 Progress note Author Davian Grier [facility] February 03, 2023 6:03am Note Date/Time February 03, 2023 6 :03am [facility] Medical Records Department [address] [place] [address] Progress Note - Orthopedic 02/03/23 0601 MR#: [id number] Acct: [id number] Name: MONISHA COHN Rep #:[id number] 1 : 1940 82 From: Davian beasley DO PCP: JACQUI Ann Status:ADM IN Location: [place] [address] Subjective Subjective Patient seen and examined. Pain [...] % (Auto) 62.1, Lymph % (Auto) 25.2, [place]% (Auto) 11.7 H, Eos % (Auto) 0.3, [...] Cosigner Signature (if applicable): CC: ~ Signed [facility] Work Phone: 1(524) 375-939510-24-2023 Discharge summary Author Law Gold [facility] February 03, 2023 12:29am Note Date/Time February 01, 2023 2 :21pm [facility] Medical Records Department [address] [place] [address] Emergency Department Summary 02/01/23 MR#: [id number] Acct: [id number] Name: MONISHA COHN Rep #:[id number] 7 : 1940 82 From: Niko OSMAN PCP: Alexandra Arreguin, INSURANCE OFFICE SUPERVISOR-C Status:ADM IN Location: MS3 DU617-5 [facility] <JACQUI Cano - Last Filed: 02/01/23 15:12> History of Present Illness Chief Complaint: Fall Narrative Narrative: Patient is a 82-year-old female with history of Parkinson disease, CAD, [place] who presents to the emergency department after [...] does live with her and her daughter [facility] <JACQUI Cano - Last Filed: 02/01/23 15:12> [facility] Medical History Atherosclerotic heart disease of [place] coronary artery without angina pectoris Bladder spasms [...] Oxygen Delivery Method Room Air Room Air [facility] <JACQUI Cano - Last Filed: 02/01/23 15:12> [facility] Lab Data Labs: Laboratory Results - last 24 hr 02/01/23 14:05 WBC 4.8 RBC 3.93 L Hgb 10.8 L Hct 35.2 L MCV 89.6 MCH 27.5 MCHC 30.7 L RDW Std Deviation 41.8 RDW Coeff of Aleena 12.6 Plt Count 255 MPV 8.7 Immature Gran % (Auto) 0.200 Neut % (Auto) 60.2 Lymph % (Auto) 28.0 [place] % (Auto) 8.9 Eos % (Auto) 1.7 [...] 14:52 EDT Reading Location ID and State: [id number] / [employer] , Service support , Chest X-Ray 02/01/23 14:00 IMPRESSION: Normal x-ray examination of the chest. Electronically Signed: Chun Martinez MD at 14:53 EDT , Femur X-Ray 02/01/23 14:00 IMPRESSION: Acute distracted fracture of the intertrochanteric left femur. Electronically Signed: Chun Martinez MD at 14:55 EDT Reading Location ID and State: 3817 / [employer] , Service support , Pelvis X-Ray 02/01/23 14:00 IMPRESSION: Acute distracted fracture of the intertrochanteric left femur. Electronically Signed: Chun Martinez MD at 14:54 EDT Reading Location ID and State: 1407 / [employer] , Service support , Elbow X-Ray 02/01/23 15:12 IMPRESSION: Normal x-ray examination of the elbow. Electronically Signed: Chun Martinez MD at 15:29 EDT Reading Location ID and State: 8157 / [employer] , Service support , EKG EKG shows a normal sinus rhythm: Attestation: I personally reviewed and interpreted this EKG as follows: Comments: Normal sinus rhythm, rate of 71 bpm, OK 150 ms, QRS duration 68 ms. No [...] Gold, DO - Last Filed: 02/01/23 15:58> [facility] Narrative Medical decision making narrative: I have [...] % (Auto) 60.2 Lymph % (Auto) 28.0 [place] % (Auto) 8.9 Eos % (Auto) 1.7 [...] 14:52 EDT Reading Location ID and State: [email or web address] , Service support , Chest X-Ray 02/01/23 14:00 IMPRESSION: Normal x-ray examination of the chest. Electronically Signed: Chun Martinez MD at 14:53 EDT Reading Location ID and State: [email or web address] , Service support , Femur X-Ray 02/01/23 14:00 IMPRESSION: Acute distracted fracture of the intertrochanteric left femur. Electronically Signed: Chun Martinez MD at 14:55 EDT Reading Location ID and State: [email or web address] , Service support , Pelvis X-Ray 02/01/23 14:00 IMPRESSION: Acute distracted fracture of the intertrochanteric left femur. Electronically Signed: Chun Martinez MD at 14:54 EDT Reading Location ID and State: [email or web address] , Service support , Elbow X-Ray 02/01/23 15:12 IMPRESSION: Normal x-ray examination of the elbow. Electronically Signed: Chun Martinez MD at 15:29 EDT Reading Location ID and State: [email or web address] , Service support , Discharge Plan [...] your Primary Care Provider. Call [facility] ([phone]) or report to the closest Emergency Room. Call 911 if necessary. 02/02/232110 <Electronically signed by Niko LANDAC> Cosigner Signature (if applicable): 02/03/23 0029 <Electronically signed by Law Gold DO> CC: INSURANCE OFFICE SUPERVISOR-C Alexandra Arreguin ~ Signed [facility] Work Phone: 1([phone]) 343-638410-23-2023 Procedure [facility] 02-02-2023 Progress note Author Darline Lundy [facility] February 02, 2023 10:59am Note Date/Time February 02, 2023 7 :44am [facility] Medical Records Department [address] [place] [address] Progress Note - Hospitalist 02/02/23 0739 MR#: [id number] Acct: [id number] Name: MONISHA COHN Rep #:[id number] 1 : 1940 82 From: Darline Lundy MD PCP: JACQUI Ann Status:ADM IN Location: [place] [address] Reason for Visit Reason for Visit: Diagnoses [...] % (Auto) 60.2, Lymph % (Auto) 28.0, [place]% (Auto) 8.9, Eos % (Auto) 1.7, Baso [...] % (Auto) 62.1, Lymph % (Auto) 25.2, [place]% (Auto) 11.7 H, Eos % (Auto) 0.3, [...] 14:52 EDT Reading Location ID and State: [email or web address] , Service support , Chest X-Ray 02/01/23 14:00 IMPRESSION: Normal x-ray examination of the chest. Electronically Signed: Chun Martinez MD at 14:53 EDT Reading Location ID and State: [email or web address] , Service support , Femur X-Ray 02/01/23 14:00 IMPRESSION: Acute distracted fracture of the intertrochanteric left femur. Electronically Signed: Chun Martinez MD at 14:55 EDT Reading Location ID and State: [email or web address] , Service support , Pelvis X-Ray [...] documentation, 36minutes Charges/Coding Visit Charges Inpatient E&M: 80847 Subs Hosp L2 02/02/23 1059 <Electronically signed by Darline Lundy MD> Cosigner Signature (if applicable): CC: ~ Signed [facility] Work Phone: 1(616) 900-678310-22-2023 Progress note Author [facility] Paolo [facility] February 01, 2023 9:42pm Note Date/Time February 01, 2023 9 :42pm [facility] Medical Records Department [address] [facility] [place] [address] Progress Note - Hospitalist 02/01/232141 MR#: [id number] Acct: [id number] Name: MONISHA COHN Rep #:[id number] 1 : 1940 82 From: Jaylon Fontana PCP: Alexandra Arreguin INSURANCE OFFICE SUPERVISOR-C Status:ADM IN Location: [facility] [place] VN021-7 Hospitalist Note As per the nurse, patient changed her mind from DNRCC arrest to full code. She wants to be full code. CODE STATUS changed to full code. 02/01/232141 <Electronically signed by Jaylon Boone MD> Cosigner Signature (if applicable): CC: ~ Signed [facility] Work Phone: 1(587) 624-831610-22-2023 Consult note Author Davian Grier [facility] February 01, 2023 7:27pm Note Date/Time February 01, 2023 7 :27pm [facility] Medical Records Department [address] [facility] [place] [address] Consultation - Orthopedics 02/01/231921 MR#: [id number] Acct: [id number] Name: MONISHA COHN Rep #:[id number] 3 : 1940 82 From: Davian beasley DO PCP: SYEDA AnnC Status:ADM IN Location: MS3 [id number] HPI Consult Data Date of Consult: 02/01/23 HPI Narrative Reason for Consultation: Left hip fracture HPI Narrative: MONISHA COHN, is a 82 F who presents to [facility] emergency department after [...] in the past. Denies history of VTE. [facility] Medical History (Updated 02/01/23 @ 19:[address] Davian Grier, ) Atherosclerotic heart disease of [place] coronary artery without angina pectoris Bladder spasms [...] % (Auto) 60.2, Lymph % (Auto) 28.0, [place]% (Auto) 8.9, Eos % (Auto) 1.7, Baso [...] 14:52 EDT Reading Location ID and State: [email or web address] , Service support , Chest X-Ray 02/01/23 14:00 IMPRESSION: Normal x-ray examination of the chest. Electronically Signed: Chun Martinez MD at 14:53 EDT Reading Location ID and State: [email or web address] , Service support , Femur X-Ray 02/01/23 14:00 IMPRESSION: Acute distracted fracture of the intertrochanteric left femur. Electronically Signed: Chun Martinez MD at 14:55 EDT Reading Location ID and State: [email or web address] , Service support , Pelvis X-Ray 02/01/23 14:00 IMPRESSION: Acute distracted fracture of the intertrochanteric left femur. Electronically Signed: Chun Martinez MD at 14:54 EDT Reading Location ID and State: [email or web address] , Service support , Elbow X-Ray [...] JACQUI Arreguin; Dr. Davian Grier DO~ Signed [facility] Work Phone: 1([phone]) 406-659110-22-2023 History and physical note Author Jasmin Steele [facility] February 01, 2023 4:28pm Note Date/Time February 01, 2023 3 :26pm [facility] Medical Records Department [address] [place] [address] H&P Exam - Hospitalist 02/01/23 1526 MR#: [id number] Acct: [id number] Name: MONISHA COHN Rep #:[id number] 3 : 1940 82 From: Jasmin Steele MD PCP: SYEDA AnnC Status:ADM IN Location: MS3 NU382-7 HPI - General General Date of Admission: 02/01/23 Date of Service: 02/01/23 Chief Complaint: Fall, L hip pain. HPI Narrative The patient is an 82 y/o F w/ PMHx: CAD s/p PCI, HTN, HLD, COPD, Parkinson's disease, Chronic urgency/bladder spasms following with Urology, Gout, Fibromyalgia, Hx usage silver water with chronically silver skin hue, Obesity who presents to the [facility] ED on 02/01/23 with history [...] She notes she is able to tolerate [place] and per daughter Dilaudid low-dose. In the ED she was administered Zofran 4 mg IV x2 and morphine 4 mg IV x2 and did not have a significant reaction thus far but discussed and if any concerns arise or hives would administer medications as needed. [facility] Medical History (Updated 02/01/23 @ 16:[address] Jasmin Steele MD) Atherosclerotic heart disease of [place] coronary artery without angina pectoris Bladder spasms [...] % (Auto) 60.2, Lymph % (Auto) 28.0, [place]% (Auto) 8.9, Eos % (Auto) 1.7, Baso [...] 14:52 EDT Reading Location ID and State: [employer] / [employer] , Service support , Chest X-Ray 02/01/23 14:00 IMPRESSION: Normal x-ray examination of the chest. Electronically Signed: Chun Martinez MD at 14:53 EDT Reading Location ID and State: [email or web address] , Service support , Femur X-Ray 02/01/23 14:00 IMPRESSION: Acute distracted fracture of the intertrochanteric left femur. Electronically Signed: Chun Martinez MD at 14:55 EDT Reading Location ID and State: [employer] / [employer] , Service support , Pelvis X-Ray 02/01/23 14:00 IMPRESSION: Acute distracted fracture of the intertrochanteric left femur. Electronically Signed: Chun Martinez MD at 14:54 EDT Reading Location ID and State: [email or web address] / [employer] , Service support , Assessment & Plan Assessment/Plan (1) Closed hip fracture: PLAN: Plan The patient is an 82 y/o F w/ PMHx: CAD s/p PCI, HTN, HLD, COPD, Parkinson's disease, Chronic urgency/bladder spasms following with Urology, Gout, Fibromyalgia, Hx usage silver water with chronically silver skin hue, Obesity who presents to the [facility] ED on 02/01/23 with history [...] 16 minutes. Charges/Coding Visit Charges Inpatient E&M: 35025 Init Hosp L3 Procedures Hospitalists Procedures: 79601 Advncd Care Plan 30 Min 02/01/23 1628 <Electronically signed by Jasmin Steele MD> Cosigner Signature (if applicable): CC: JACQUI Arreguin; Dr. Jasmin Steele MD~ Signed [facility] Work Phone: 1(884) 850-132410-10-2023 Instructions* Patient Instructions* Em Flynn APRN.SCHOOL ADMISSIONS REPRESENTATIVE - 01/20/2023 3:48 PM EDT It was [...] points or more) please discuss with your medical receptionist assistant. Date/Time BP Sitting Heart Rate Sitting BP [...] or you can send a message through [employer]. You can also now schedule and select appointments through [employer]. Em Flynn APRN.RUPALI documented in this encounterCos[facility]10-10-2023 History of Present illness Narrative* Em Flynn APRN.CNP - 01/20/2023 3:00 PM EDT [facility] - FOLLOW UP EVALUATION Alexandra Arreguin APRN.CNP [address] [place] [phone] Dear Alexandra Arreguin APRN.CNP: I had the [...] exercising and going to physical therapy at [facility] and this is going well so she feels she is doing good. They are thinking about moving back to [place] as other than the above, they are [...] them. These started before she moved to [place] and after shehad her heart attack while [...] to wait until she moves back to [place]. Palliative services: Therapy and Exercise: Last PT [...] c) the amplitude decrements startingafter the 1st zqlu-whc-hyftg sequence. Hand Movements Left 2-Mild. a) 3 [...] been experiencing hallucinations since she moved to [place], but she was embarrassed so she said [...] and to have informationwhen discussing with her medical receptionist assistant. She also believes she has only been taking one of the two blood pressure medications prescribed (we called her medical receptionist assistant office and verified that she is supposed [...] points or more) please discuss with your medical receptionist assistant. Date/Time BP Sitting Heart Rate Sitting BP [...] Duloxetine 20mg 2 Level of service : 09089 (40-54 min). Time spent 50 min on the day of service, which included preparing to see the patient, uoub-pj-mete patient care, completing clinical documentation, obtaining and/or reviewing separately obtained history, performing a medically appropriate examination, counseling and educating the patient/family/caregiver, and ordering medications, tests, or procedures. Em Flynn APRN.SCHOOL ADMISSIONS REPRESENTATIVE documented in this encounterCoshocton [facility] Center06-29-2023 Miscellaneous Notes* Addendum Note - Linden Flynn MD - 10/09/2022 1:32 PM EDTAddended by: LINDEN FLYNN on: 10/09/2022 01:32 PM Modules accepted: Orders documented in this encounterCoshocton [facility] Center06-29-2023 Instructions* Patient Instructions* Linden Flynn MD [...] or you can send a message through [employer]. You can also now schedule and select appointments through [employer]. Linden Flynn MD documented in this encounterCoshocton [facility] Center06-29-2023 History of Present illness Narrative* Linden [...] she used to. She moved here from [place]. She is blue from taking silver water [...] Achilles 2+ 2+ Plantar Downgoing Downgoing Coordination Ghyrif-na-hroq, rapid alternating movements and dgfs-cn-gfpm normal bilaterally without dysmetria. Gait Casual gait [...] c) the amplitude decrements startingafter the 1st jlsj-kbj-gfshq sequence. Hand Movements Left 3-Moderate. a) more than 5 interruptions during the movement or at least one longer arrest (freeze) in ongoing movement, b) moderate slowing, c) the amplitude decrements starting after the 1st klzp-nbe-jfikd sequence. Arm Movements Right 2-Mild. a) 3 [...] Sincerely, Linden Flynn MD documented in this encounterCoshocton Regional Medical CenterDischarge summary [facility] Medical Records Department [address] [place] [address] Discharge Summary 01/25/25 1449 MR#: [id number] Acct: [id number] Name: MONISHA COHN Rep #:[id number] 7 : 1940 84 From: Davian interiano MD PCP: Tressa Rosales Status:DIS IN Location: [facility] [place] CU278-3 Providers Date of Admission: 01/20/25 Primary Care [...] and pulmonary hypertension, CAD; withRCA stent at [facility] in [place] (2009) and subsequent inferior wall ST elevation [place] s/p RCA stent with cardiogenic shock and [...] recently diagnosed COVID-19 who was transferred from [facility] she was diagnosed with an impacted [...] LOC with her fall. Dr. [facility] of [facility] spoke to Dr. Tijerina of the [...] risks and benefits of going to the longterm and would like to go today. Hemoglobin [...] in before D/C Order can be placed): [facility] Facility Charges/Coding Visit Charges Inpatient E&M: 83906 Disch Hosp >30min 01/25/25 145 Cosigner Signature (if applicable): CC: Dr. Davian Kelly MD; Tressa Rosales~ [facility]igned [facility] Author Davian Kelly [facility] Note Date/Time January 25, 2025 2 :52pm [facility] Medical Records Department [address] [place] [address] Discharge Summary 01/25/25 1449 MR#: [id number] Acct: [id number] Name: MONISHA COHN Rep #:[id number] 7 : 1940 84 From: Davian interiano MD PCP: Tressa Rosales Status:DIS IN Location: [facility] [place] SU581-8 Providers Date of Admission: 01/20/25 Primary Care [...] and pulmonary hypertension, CAD; withRCA stent at [facility] in [place] (2009) and subsequent inferior wall ST elevation [place] s/p RCA stent with cardiogenic shock and [...] recently diagnosed COVID-19 who was transferred from [facility] after she was diagnosed with an [...] LOC with her fall. Dr. [facility] of [facility] spoke to Dr. Tijerina of the [...] risks and benefits of going to the longterm and would like to go today. Hemoglobin [...] in before D/C Order can be placed): [facility] Facility Charges/Coding Visit Charges Inpatient E&M: 56386 Disch Hosp >30min 01/25/25 1452 <Electronically signed by Davian Kelly MD> Cosigner Signature (if applicable): CC: Dr. Davian Kelly MD; Tressa Rosales~ Signed [facility] Work Phone: Evaluation note* Diagnosis Onset Date Resolution Status Bladder spasms acute Edema, lower extremity acute Gout acute Hyperlipidemia acute Urgency of urination acute [facility] Work Phone: Evaluation note* Diagnosis Parkinson's disease (HCC)- Primary Paralysis agitans [place] of skin, accidental or unintentional, sequela Depression, unspecified depression type documented in this encounter [facility] [place] [facility]* Diagnosis Parkinson's disease without dyskinesia or fluctuating manifestations- Primary Hallucinations Orthostatic hypotension Insomnia, unspecified type documented in this encounter [facility] note* Diagnosis Onset Date Resolution Status CAD (coronary artery disease) chronic Essential (primary) hypertension chronic Hyperlipidemia chronic Non-rheumatic mitral regurgitation chronic Parkinsons disease chronic CHI (closed head injury) acu te Closed hip fracture acute Fall acute History of Parkinson's disease acute [facility] Work Phone: Evaluation note* Diagnosis Onset Date Resolution Status Closed hip fracture acute History of Parkinson's disease acute [facility] Work Phone: Evaluation note* Diagnosis Parkinson's disease without dyskinesia or fluctuating manifestations (HCC)- Primary Orthostatic hypotension Dysphagia, unspecified type Left arm pain Pain in limb Numbness and tingling in left arm Disturbance of skin sensation [facility] [place] [facility] Diagnosis Protrusion of cervical intervertebral disc- Primary [facility] [place] [facility]* Diagnosis Acute pain of left shoulder- Primary Protrusion of cervical intervertebral disc Pain in left elbow Pain in joint, upper arm documented in this [facility] [place] [facility]* Diagnosis Chronic left shoulder pain- Primary Pain in joint, shoulder region [facility] Diagnosis Parkinson's disease without dyskinesia or fluctuating manifestations (HCC)- Primary Orthostatic hypotension Hallucinations Dysphagia, unspecified type [facility] of left [facility] Diagnosis Chronic left shoulder pain Pain in joint, shoulder region [facility] Diagnosis Dysphagia, unspecified type- Primary Parkinson's disease without dyskinesia or fluctuating manifestations (HCC) Orthostatic hypotension [facility] [place] [facility]* Diagnosis Dysphagia, unspecified type- Primary Parkinson's disease with dyskinesia without fluctuating manifestations (HCC) Numbness and tingling of both feet Hallucinations documented in this [facility] [place] [facility]* Diagnosis Numbness and tingling of both feet [facility] [place] [facility]* Diagnosis Onset Date Resolution Status Admit Date 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 CAD (coronary artery disease) chroni c September 27, 2024 10:37am Essential (primary) hypertension chr onic September 27, 2024 10:37am Hyperlipidemia chronic September 27, 2024 10:37am Non-rheumatic mitral regurgitation chronic September 27, 2024 10:37am Parkinsons disease chronic September 112024 10:37am [facility] Work Phone: Reason for referral (narrative)* Diagnostic Procedure Only (Routine) - Pending Review Specialty Diagnoses / Procedures Referred By Contac t Referred To Contact XR IMAGING Diagnoses Chronic left shoulder pain Procedures XR SHOULDER GENERAL 3V OR MORE AP/TRUE AP/OTHER LEFT RADEX SHOULDER COMPLETE MINIMUM 2 VIEWS Claudia Manuel PA-C [address] [place] [address] [place] [address] Referral ID Status Reason Start Date Expiration Date Visits Requested Visits Authorized [id number] Pending Review Auto-Generat ed Referral 09/15/2023 10/13/2024 1 1 [facility] for referral (narrative)* Diagnostic Procedure Only (Routine) - Closed Specialty Diagnoses / Procedures Referred By Contac t Referred To Contact XR IMAGING Diagnoses Chronic left shoulder pain Procedures XR SHOULDER GENERAL 3V OR MORE AP/TRUE AP/OTHER LEFT RADEX SHOULDER COMPLETE MINIMUM 2 VIEWS Claudia Manuel PA-C [address] [place] [address] [place] [address] Referral ID Status Reason Start Date Expiration Date V isits Requested Visits Authorized [id number] Closed Auto-Generate d Referral 09/15/2023 10/13/2024 1 1 [facility] for referral (narrative)No reason for referral information [facility] Work Phone: [facility] for visit Narrative* Diagnostic Procedure Only (Routine) - Closed Specialty Diagnoses / Procedures Referred By Contac t Referred To Contact XR IMAGING Diagnoses Chronic left shoulder pain Procedures XR SHOULDER GENERAL 3V OR MORE AP/TRUE AP/OTHER LEFT RADEX SHOULDER COMPLETE MINIMUM 2 VIEWS Claudia Manuel PA-C [address] [place] [address] [place] [address] Referral ID Status Reason Start Date Expiration Date V isits Requested Visits Authorized [id number] Closed Auto-Generate d Referral 09/15/2023 10/13/2024 1 1 [facility] Chief Complaint and Reason for Visit [...] December 28, 2024 12:46pm Essential (primary) hypertension [facility] 2024 12:46pm Parkinsons disease December [...] December 28, 2024 12:46pm Essential (primary) hypertension [facility] 2024 12:46pm Parkinsons disease December [...] Procedures PROVIDER ORDERED FOLLOW UP OFFICE/OUTPATIENT [facility] MDM 60-74 MINUTES Linden Flynn MD [address] [place] [address] Referral ID Status Reason Start Date Expiration Date Visits Requested Visits Authorized [id number] Pending Review PCP Requested Referral 10/09/2022 01/07/2023 1 1 Specialty Diagnoses / Procedures Referred By Arely t Referred To Contact [facility] Diagnoses Parkinson's disease (HCC) Procedures CONSULT TO DIGITAL FORENSIC EXAMINER OCCUPATIONAL THERAPY EVAL HIGH COMPLEX 60 MINS Linden Flynn MD [address] [place] [address] [facility] [address] [address] Referral ID Status Reason Start Date Expiration Date Visits Requested Visits Authorized [id number] Pending Review Auto-Generat ed Referral 10/09/2022 10/09/2023 1 1 Specialty Diagnoses / Procedures Referred By Arely t Referred To Contact [facility] Diagnoses Parkinson's disease (HCC) Procedures CONSULT TO PHYSICAL THERAPY PHYSICAL THERAPY EVALUATION HIGH COMPLEX 45 MINS Linden Flynn MD [address] [place] [address] [facility] [address] [address] Referral ID Status Reason Start Date Expiration Date Visits Requested Visits Authorized [id number] Pending Review Auto-Generat ed Referral 10/09/2022 10/09/2023 1 1 Specialty Diagnoses / Procedures Referred By Contac t Referred To Contact MR IMAGING Diagnoses Spinal stenosis of cervical region Procedures MRI CERVICAL SPINE WO IVCON MRI SPINAL CANAL CERVICAL W/O CONTRAST MATRL Em Flynn, PERFECT BINDER SETTER.SCHOOL ADMISSIONS REPRESENTATIVE [address] [place] [phone] [facility] [place] [address] Referral ID Status Reason Start Date Expiration Date Visits Requested Visits Authorized [id number] Authorized Auto-Generat ed Referral 07/06/2023 08/04/2024 1 1 Referral ID Status Reason Start Date Expiration Date V isits Requested Visits Authorized [id number] Closed Auto-Generate d Referral 07/06/2023 08/04/2024 1 1 Specialty Diagnoses / Procedures Referred By Contac t Referred To Contact [facility] Diagnoses Protrusion of cervical intervertebral disc Procedures CONSULT TO [facility] OFFICE/OUTPATIENT [facility] 60 MINUTES Em Flynn, PERFECT BINDER SETTER.SCHOOL ADMISSIONS REPRESENTATIVE [address] [place] [phone] Referral ID Status Reason Start Date Expiration Date Visits Requested Visits Authorized [id number] Authorized PCP Requested Referral 08/03/2023 08/02/2024 1 1 Specialty Diagnoses / Procedures Referred By Contac t Referred To Contact Orthopedics Diagnoses Acute pain of left shoulder Pain in left elbow Procedures CONSULT TO ORTHOPAEDICS OFFICE/OUTPATIENT [facility] 60 MINUTES Stephan Sheehan PA-C [address] [phone] Referral ID Status Reason Start Date Expiration Date Visits Requested Visits Authorized [id number] Authorized PCP Requested Referral 08/27/2023 08/26/2024 1 1 Specialty Diagnoses / Procedures Referred By Contac t Referred To Contact [facility] Diagnoses Protrusion of cervical intervertebral disc Acute pain of left shoulder Pain in left elbow Procedures CONSULT TO PHYSICAL THERAPY PHYSICAL THERAPY EVALUATION HIGH COMPLEX 45 MINS Stephan Sheehan PA-C [address] [phone] [facility] [place] [address] [place] [address] Referral ID Status Reason Start Date Expiration Date Visits Requested Visits Authorized [id number] Pending Review Auto-Generat ed Referral 08/27/2023 08/26/2024 1 1 Specialty Diagnoses / Procedures Referred By Contac t Referred To Contact Diagnoses Parkinson's disease without dyskinesia or fluctuating manifestations (HCC) Procedures PROVIDER ORDERED FOLLOW UP OFFICE/OUTPATIENT [facility] 60 MINUTES Em Flynn, PERFECT BINDER SETTER.SCHOOL ADMISSIONS REPRESENTATIVE [address] [address] Referral ID Status Reason Start Date Expiration Date Visits Requested Visits Authorized [id number] Authorized PCP Requested Referral 12/30/2023 09/28/2024 1 1 Specialty Diagnoses / Procedures Referred By Contac t Referred To Contact [facility] Diagnoses Parkinson's disease without dyskinesia or fluctuating manifestations (HCC) Procedures CONSULT TO PHYSICAL THERAPY PHYSICAL THERAPY EVALUATION HIGH COMPLEX 45 MINS Em Flynn, PAT.SCHOOL ADMISSIONS REPRESENTATIVE [address] [address] [facility] [address] [place] [address] Referral ID Status Reason Start Date Expiration Date Visits Requested Visits Authorized [id number] Pending Review Auto-Generat ed Referral 09/29/2023 09/28/2024 1 1 Specialty Diagnoses / Procedures Referred By Contac t Referred To Contact [facility] Diagnoses Acute pain of left shoulder Procedures CONSULT TO PHYSICAL THERAPY PHYSICAL THERAPY EVALUATION HIGH COMPLEX 45 MINS Claudia Manuel PA-C [address] [place] [address] [facility] [address] [place] [address] Referral ID Status Reason Start Date Expiration Date Visits Requested Visits Authorized [id number] Pending Review Auto-Generat ed Referral 10/02/2023 10/01/2024 1 1 Referral ID Status Reason Start Date Expiration Date Visits Requested Visits Authorized [id number] Authorized PCP Requested Referral 12/30/2024 1 1 Specialty Diagnoses / Procedures Referred By Contac t Referred To Contact [facility] Diagnoses Parkinson's disease without dyskinesia or fluctuating manifestations (HCC) Dysphagia, unspecified type Procedures CONSULT TO SPEECH THERAPY OFFICE/OUTPATIENT [facility] 60 MINUTES Em Flynn APRN.SCHOOL ADMISSIONS REPRESENTATIVE [address] [address] [facility] [address] [address] Referral ID Status Reason Start Date Expiration Date Visits Requested Visits Authorized [id number] Pending Review Auto-Generat ed Referral 12/31/2023 12/30/2024 1 1 Advance Directives No Advanced Directives Records Found Advance Directive Response Recorded Date/ Time Living Will No February 01 1:49pm Power of Industrial Workers No February 01, 2023 1:49pm Advance Directive Response Recorded Date/ Time Living Will No February 01 4:06pm Power of Industrial Workers No February 01, 2023 4:06pm Advance Directive Response Recorded Date/ Time Name of Medical Power of Industrial Workers Palmira, daughter , CHRISTY May 01, 2023 1:29pm Living Will No May 01 1:29pm Power of Industrial Workers Yes May 01, 2023 1:29pm Advance Directive Response Recorded Date/ Time Do you have a Healthcare Power of Industrial Workers? Yes January 20, 2025 1:18am Name of Medical Power of Industrial Workers palmira mayer January 20, 2025 1:18am Summary [...] or prosecute any alcohol or drug abuse patient.[facility] the event this information is protected by the Federal Confidentiality of Alcohol and Drug Abuse Patient Records regulations: The Federal rules restrict any use of the information to criminally investigate or prosecute any alcohol or drug abuse patient.[facility] the event this information is protected by the Federal Confidentiality of Alcohol and Drug Abuse Patient Records regulations: The Federal rules restrict any use of the information to criminally investigate or prosecute any alcohol or drug abuse patient.[facility] the event this information is protected by the Federal Confidentiality of Alcohol and Drug Abuse Patient Records regulations: The Federal rules restrict any use of the information to criminally investigate or prosecute any alcohol or drug abuse patient.[facility] the event this information is protected by the Federal Confidentiality of Alcohol and Drug Abuse Patient Records regulations: The Federal rules restrict any use of the information to criminally investigate or prosecute any alcohol or drug abuse patient.[facility] the event this information is protected by the Federal Confidentiality of Alcohol and Drug Abuse Patient Records regulations: The Federal rules restrict any use of the information to criminally investigate or prosecute any alcohol or drug abuse patient.[facility] the event this information is protected by the Federal Confidentiality of Alcohol and Drug Abuse Patient Records regulations: The Federal rules restrict any use of the information to criminally investigate or prosecute any alcohol or drug abuse patient.[facility] Center[facility] the event this information is protected by the Federal Confidentiality of Alcohol and Drug Abuse Patient Records regulations: The Federal rules restrict any use of the information to criminally investigate or prosecute any alcohol or drug abuse patient.[facility] Center[facility] the event this information is protected by the Federal Confidentiality of Alcohol and Drug Abuse Patient Records regulations: The Federal rules restrict any use of the information to criminally investigate or prosecute any alcohol or drug abuse patient.[facility] Center[facility] the event this information is protected by the Federal Confidentiality of Alcohol and Drug Abuse Patient Records regulations: The Federal rules restrict any use of the information to criminally investigate or prosecute any alcohol or drug abuse patient.[facility] the event this information is protected by the Federal Confidentiality of Alcohol and Drug Abuse Patient Records regulations: The Federal rules restrict any use of the information to criminally investigate or prosecute any alcohol or drug abuse patient.[facility] Center[facility] the event this information is protected by the Federal Confidentiality of Alcohol and Drug Abuse Patient Records regulations: The Federal rules restrict any use of the information to criminally investigate or prosecute any alcohol or drug abuse patient.[facility] the event this information is protected by the Federal Confidentiality of Alcohol and Drug Abuse Patient Records regulations: The Federal rules restrict any use of the information to criminally investigate or prosecute any alcohol or drug abuse patient.[facility] the event this information is protected by the Federal Confidentiality of Alcohol and Drug Abuse Patient Records regulations: The Federal rules restrict any use of the information to criminally investigate or prosecute any alcohol or drug abuse patient.[facility] the event this information is protected by the Federal Confidentiality of Alcohol and Drug Abuse Patient Records regulations: The Federal rules restrict any use of the information to criminally investigate or prosecute any alcohol or drug abuse patient.[facility] Center[facility] the event this information is protected by the Federal Confidentiality of Alcohol and Drug Abuse Patient Records regulations: The Federal rules restrict any use of the information to criminally investigate or prosecute any alcohol or drug abuse patient.[facility] Center[facility] the event this information is protected by the Federal Confidentiality of Alcohol and Drug Abuse Patient Records regulations: The Federal rules restrict any use of the information to criminally investigate or prosecute any alcohol or drug abuse patient.[facility] Center[facility] the event this information is protected by the Federal Confidentiality of Alcohol and Drug Abuse Patient Records regulations: The Federal rules restrict any use of the information to criminally investigate or prosecute any alcohol or drug abuse patient.[facility] Center[facility] the event this information is protected by the Federal Confidentiality of Alcohol and Drug Abuse Patient Records regulations: The Federal rules restrict any use of the information to criminally investigate or prosecute any alcohol or drug abuse patient.[facility] CenterIn the event this information is protected by the Federal Confidentiality of Alcohol and Drug Abuse Patient Records regulations: The Federal rules restrict any use of the information to criminally investigate or prosecute any alcohol or drug abuse patient.[facility] Center[facility] the event this information is protected by the Federal Confidentiality of Alcohol and Drug Abuse Patient Records regulations: The Federal rules restrict any use of the information to criminally investigate or prosecute any alcohol or drug abuse patient.[facility] Center[facility] the event this information is protected by the Federal Confidentiality of Alcohol and Drug Abuse Patient Records regulations: The Federal rules restrict any use of the information to criminally investigate or prosecute any alcohol or drug abuse patient.[facility] Reason for Visit (unrecogniz ed section and content) Reason Comments New Patient Evaluation Reason Comments Parkinson's Disease Specialty Diagnoses / Procedures Referred By Arely carlson Referred To Contact Diagnoses Parkinson's disease Procedures PROVIDER ORDERED FOLLOW UP OFFICE/OUTPATIENT [facility] MDM 60-74 MINUTES Linden Flynn MD [address] [address] Referral ID Status Reason Start Date Expiration Date V isits Requested Visits Authorized [id number] Closed PCP Requested Referral 10/09/2022 01/07/2023 1 1 Reason Comments Follow Up Pt wants to discuss left arm pain and left groin pain Parkinson's Disease Specialty Diagnoses / Procedures Referred By Arely carlson Referred To Contact MR IMAGING Diagnoses Spinal stenosis of cervical region Procedures MRI CERVICAL SPINE WO IVCON MRI SPINAL CANAL CERVICAL W/O CONTRAST Em Walker APRN.RUPALI [address] [place] [address] [place] [address] Referral ID Status Reason Start Date Expiration Date V isits Requested Visits Authorized [id number] Closed Auto-Generate d Referral 07/06/2023 08/04/2024 1 1 Reason Comments Results Reason Comments Neck Pain Neck pain Left arm p ain. Would like to discuss MRI and X-ray Results. Specialty Diagnoses / Procedures Referred By Contac t Referred To Contact [facility] Diagnoses Protrusion of cervical intervertebral disc Procedures CONSULT TO [facility] OFFICE/OUTPATIENT [facility] 60 MINUTES Em Flynn, PAT.SCHOOL ADMISSIONS REPRESENTATIVE [address] [place] [address] Referral ID Status Reason Start Date Expiration Date V isits Requested Visits Authorized [id number] Closed PCP Requested Referral 08/03/2023 08/02/2024 1 1 Reason Comments Parkinson's Disease Follow Up Reason Comments New Pain Specialty Diagnoses / Procedures Referred By Contac t Referred To Contact Orthopedics Diagnoses Acute pain of left shoulder Pain in left elbow Procedures CONSULT TO ORTHOPAEDICS OFFICE/OUTPATIENT [facility] 60 MINUTES Stephan Sheehan PA-C [address] [place] [address] Referral ID Status Reason Start Date Expiration Date V isits Requested Visits Authorized [id number] Closed PCP Requested Referral 08/27/2023 08/26/2024 1 1 Reason Comments Patient Update Patient Question Orders Reason Comments Certified Scrub Tech - Other Reason Comments Radiology Mammogram Reason Comments Parkinson's Disease Specialty Diagnoses / Procedures Referred By Contac t Referred To Contact Diagnoses Parkinson's disease without dyskinesia or fluctuating manifestations (HCC) Procedures PROVIDER ORDERED FOLLOW UP OFFICE/OUTPATIENT [facility] 60 MINUTES Em Flynn, PERFECT BINDER SETTER.SCHOOL ADMISSIONS REPRESENTATIVE [address] [place] [phone] Referral ID Status Reason Start Date Expiration Date V isits Requested Visits Authorized [id number] Closed PCP Requested Referral 12/30/2023 09/28/2024 1 1 Reason Comments Parkinson's Disease Specialty Diagnoses / Procedures Referred By Contac t Referred To Contact Diagnoses Parkinson's disease without dyskinesia or fluctuating manifestations (HCC) Procedures PROVIDER ORDERED FOLLOW UP OFFICE/OUTPATIENT [facility] 60 MINUTES Em Flynn, PERFECT BINDER SETTER.SCHOOL ADMISSIONS REPRESENTATIVE [address] [place] [address] Phone: tel: fax: Referral ID Status Reason Start Date Expiration Date V isits Requested Visits Authorized [id number] Closed PCP Requested Referral 03/31/2024 12/30/2024 1 1 Reason Comments Neuropathy Specialty Diagnoses / Procedures Referred By Contac t Referred To Contact Neurology Diagnoses Numbness and tingling of both feet Numbness and tingling in both hands Procedures CONSULT TO NEUROLOGY OFFICE/OUTPATIENT [facility] 60 MINUTES Em Flynn, PERFECT BINDER SETTER.SCHOOL ADMISSIONS REPRESENTATIVE [address] [place] [address] Phone: tel: fax: Referral ID Status Reason Start Date Expiration Date V isits Requested Visits Authorized [id number] Closed PCP Requested Referral 06/28/2024 06/28/2025 1 1 Care Teams (unrecognized sec tion and content) Team Status: Active Member Role Status Dates Alexandra Arreguin INSURANCE OFFICE SUPERVISOR, INSURANCE OFFICE SUPERVISOR-C Primary Care Provider Active Team Status: Active Member Role Status Dates Alexandra Arreguin NP, INSURANCE OFFICE SUPERVISOR-C Primary Care Provider Active Dr. Law Gold , DO Emergency Provider Active Dr. Jasmin Steele MD Admit Provider, Other Provider Active Dr. Davian Grier , DO Other Provider Active Dr. Darline Lundy MD Attending Provider, Other Provid er Active Team Status: Active Member Role Status Dates Alexandra Arreguin NP, INSURANCE OFFICE SUPERVISOR-C Primary Care Provider Active Dr. Law Gold , DO Emergency Provider Active Dr. Jasmin Steele MD Admit Provider, Other Provider Active Dr. Darline Lundy MD Other Provider Active Dr. Davian Grier , DO Other Provider Active Dr. Jaylon Boone MD Attending Provider Active Team Status: Active Member Role Status Dates Alexandra Arreguin NP, INSURANCE OFFICE SUPERVISOR-C Primary Care Provider Active Dr. Law Gold , DO Emergency Provider Active Dr. Jasmin Steele MD Admit Provider, Other Provider Active Dr. Darline Lundy MD Attending Provider, Other Provid er Active Dr. Davian Grier , DO Other Provider Active Team Status: Inactive Member Role Status Dates Alexandra Arreguin NP, INSURANCE OFFICE SUPERVISOR-C Primary Care Provider Active Dr. Danielle Vernon MD Attending Provider, Referring Pr ovider Active Team Status: Inactive Member Role Status Dates Alexandra Arreguin INSURANCE OFFICE SUPERVISOR, INSURANCE OFFICE SUPERVISOR-C Primary Care Provider Active Dr. Law Gold , DO Emergency Provider Active Dr. Jasmin Steele MD Admit Provider, Other Provider Active Dr. Darline Lundy MD Attending Provider Active Dr. Davian Grier , Other Provider Active Team Status: Inactive Member Role Status Dates Alexandra Arreguin INSURANCE OFFICE SUPERVISOR, INSURANCE OFFICE SUPERVISOR-C Primary Care Provider Active Dr. Law Gold , DO Emergency Provider Active Er Nurse Relationship Specialty Start Date End Date Alexandra Arreguin, PERFECT BINDER SETTER.SCHOOL ADMISSIONS REPRESENTATIVE [address] [place], [place] [id number] PCP - General Family Medicine 01/20/23 Team Status: Inactive Member Role Status Dates Alexandra Arreguin INSURANCE OFFICE SUPERVISOR, INSURANCE OFFICE SUPERVISOR-C Primary Care Provider, Referr ing Provider Active Dr. Danielle Vernon MD Attending Provider Active Team Status: Active Member Role Status Dates Alexandra Arreguin INSURANCE OFFICE SUPERVISOR, INSURANCE OFFICE SUPERVISOR-C Primary Care Provider Active Dr. Law Gold , DO Emergency Provider Active Dr. Jasmin Steele MD Admit Provider, Attending Prov ider Active Er Nurse Relationship Specialty Start Date End Date Alexandra Arreguin, PERFECT BINDER SETTER.SCHOOL ADMISSIONS REPRESENTATIVE [address] [place] [address] PCP - General Family Medicine 01/20/23 Er Nurse Relationship Specialty Start Date End Date Alexandra Arreguin, PERFECT BINDER SETTER.SCHOOL ADMISSIONS REPRESENTATIVE [address] [place] [address] PCP - General Family Medicine 01/20/23 Er Nurse Relationship Specialty Start Date End Date Alexandra Arreguin, PERFECT BINDER SETTER.SCHOOL ADMISSIONS REPRESENTATIVE [address] [place], [place] [id number] PCP - General Family Medicine 01/20/23 Er Nurse Relationship Specialty Start Date End Date Alexandra Arreguin, PERFECT BINDER SETTER.SCHOOL ADMISSIONS REPRESENTATIVE [address] [place] [address] PCP - General Family Medicine 01/20/23 Er Nurse Relationship Specialty Start Date End Date Alexandra Arreguin, PERFECT BINDER SETTER.SCHOOL ADMISSIONS REPRESENTATIVE [address] [place], [place] [phone] PCP - General Family Medicine 01/20/23 Er Nurse Relationship Specialty Start Date End Date Alexandra Arreguin, PERFECT BINDER SETTER.SCHOOL ADMISSIONS REPRESENTATIVE [address] [place], [place] [phone] PCP - General Family Medicine 01/20/23 Er Nurse Relationship Specialty Start Date End Date Alexandra Arreguin, PERFECT BINDER SETTER.SCHOOL ADMISSIONS REPRESENTATIVE [address] [facility] [address] PCP - General Family Medicine 01/20/23 Er Nurse Relationship Specialty Start Date End Date Alexandra Arreguin, PERFECT BINDER SETTER.SCHOOL ADMISSIONS REPRESENTATIVE [address] [place] [address] PCP - General Family Medicine 01/20/23 Er Nurse Relationship Specialty Start Date End Date Alexandra Arreguin, PERFECT BINDER SETTER.SCHOOL ADMISSIONS REPRESENTATIVE [address] [place] [address] PCP - General Family Medicine 01/20/23 Er Nurse Relationship Specialty Start Date End Date Alexandra Arreguin, PERFECT BINDER SETTER.SCHOOL ADMISSIONS REPRESENTATIVE [address] [place] [address] PCP - General Family Medicine 01/20/23 Er Nurse Relationship Specialty Start Date End Date Alexandra Arreguin, PERFECT BINDER SETTER.SCHOOL ADMISSIONS REPRESENTATIVE [address] [place], [place] [phone] PCP - General Family Medicine 01/20/23 Er Nurse Relationship Specialty Start Date End Date Alexandra Arreguin, PERFECT BINDER SETTER.SCHOOL ADMISSIONS REPRESENTATIVE [address] [place], [place] [phone] PCP - General Family Medicine 01/20/23 Er Nurse Relationship Specialty Start Date End Date Alexandra Arreguin, PERFECT BINDER SETTER.SCHOOL ADMISSIONS REPRESENTATIVE [address] [place], [place] [phone] PCP - General Family Medicine 01/20/23 Er Nurse Relationship Specialty Start Date End Date Alexandra Arreguin, PERFECT BINDER SETTER.SCHOOL ADMISSIONS REPRESENTATIVE [address] [place], [place] [phone] PCP - General Family Medicine 01/20/23 Er Nurse Relationship Specialty Start Date End Date Alexandra Arreguin, PERFECT BINDER SETTER.SCHOOL ADMISSIONS REPRESENTATIVE [address] [place], [place] [phone] PCP - General Family Medicine 01/20/23 Er Nurse Relationship Specialty Start Date End Date Alexandra Arreguin, PERFECT BINDER SETTER.SCHOOL ADMISSIONS REPRESENTATIVE [address] [place], [place] [phone] PCP - General Family Medicine 01/20/23 Team Status: Active Member Role Status Dates Tressa HALL Primary Care Provider Active Team Status: Inactive Member Role Status Dates Alexandra Arreguin INSURANCE OFFICE SUPERVISOR, INSURANCE OFFICE SUPERVISOR-C Primary Care Provider Active Start: March 16, 2024 End: March 16, 2024 Alexandra Arreguin INSURANCE OFFICE SUPERVISOR, INSURANCE OFFICE SUPERVISOR-C Referring Provider Active Start: March 16, 2024 End: March 16, 2024 Dr. Danielle Vernon MD Attending Provider Active Start: March 16, 2024 End: March 16, 2024 Team Status: Inactive Member Role Status Dates Didi Lujan INSURANCE OFFICE SUPERVISOR, INSURANCE OFFICE SUPERVISOR-C Attending Provider Active Start: June 03, 2024 End: June 03, 2024 Didi Lujan INSURANCE OFFICE SUPERVISOR, INSURANCE OFFICE SUPERVISOR-C Referring Provider Active Start: June 03, 2024 End: June 03, 2024 Tressa HALL Primary Care Provider Active Start: June 03, 2024 End: June 03, 2024 Er Nurse Relationship Specialty Start Date End Date Alexandra Arreguin, PAT.SCHOOL ADMISSIONS REPRESENTATIVE [address] [facility] [address] [place] [address] PCP - General Family Medicine 01/20/23 Team [...] 2024 End: November 03, 2024 Dr. Danielle Vrenon MD Attending Provider Active Start: November 03, [...] Team Status: Active Member Role/Relationship Status Dates [facility] ISABEL Primary care physician Active Start: January 20, 2025 Dr. Danielle Vernon MD Attending physician Active Start: January 20, 2025 Dr. Danielle Vernon MD Referring Provider Active Start: January 20, 2025 Team Status: Active Member Role/Relationship Status Dates [facility] ISABEL Primary care physician Active [...] Team Status: Active Member Role/Relationship Status Dates [facility] ISABEL Primary care physician Active [...] Team Status: Active Member Role/Relationship Status Dates [facility] ISABEL Primary care physician Active Start: [...] section and content) DATE CREATED AUTHOR 10/02/2023 [facility] DATE CREATED AUTHOR AUTHOR'S ORGANIZ ATION 12/30/2024 [facility] DATE CREATED AUTHOR AUTHOR'S ORGANIZ ATION 01/22/2025 [facility] DATE CREATED AUTHOR AUTHOR'S ORGANIZ ATION 02/16/2025 [facility] FOR RECORDS PERTAINING TO PATIENTS WHO [...] BE BASED ON THE PRIMARY CLINICAL RECORDS. [facility] [employer] provides no warranty or guarantee of the accuracy or completeness of information in this document.
--- NOTE | 2025-04-07 16:07 | VDLE_ITS ---
Reason For Study Reason For Study: Swelling RLE RIGHT LEFT GSV is normal. CFV is compressible, spontaneous, phasic, competent, CFV is compressible, spontaneous, phasic, competent and demonstrates normal augmentation. and demonstrates normal augmentation. FV is compressible, spontaneous, phasic, competent and demonstrates normal augmentation. POP V is compressible, spontaneous, phasic, competent and demonstrates normal augmentation. T/P Trunk is compressible. PTV is compressible. RT PerV is compressible. Procedure This is a venous duplex using B-mode, color flow and spectral Doppler. Exam performed portable in patient room. Technically difficult study due to swelling; unable to visualize prox/mid calf veins. A preliminary report was called and/or faxed to Maritza RUFFIN. VL/Venous Duplex US, Unilateral Interpretation Summary Deep veins of the right lower extremity are patent and compressible segmentally . There is no evidence of right lower extremity deep vein thrombosis. The right great saphenous vein appears patent a nd compressible segmentally. Ordering Physician: Jasmin Steele Referring Physician: Tressa Conn Performed By: Funmi Vallecillo, LEOBARDOCS, RVT
--- OUTSIDE RECORDS SUMMARY | 2025-04-07 16:12 | XMS RPT_ITS | CCD ---
Author Organization [facility] Care Team Providers Care Tax Appraiser Name Role Phone Unavailable Primary Care Provider Minesh Arreguin LIMO DRIVER.SHOELACE TIPPING MACHINE OPERATOR, Alexandra L Primary Care Provide r Rodríguez LOAN APPROVER, LOAN APPROVER-C Alexandra Primary Care Provider Rodríguez LOAN APPROVER, LOAN APPROVER-C Alexandra Referring Provider Dr. Danielle Vernon Attending Provider Dr. Law Gold Emergency Provider Dr. Jasmin Steele Admit Provider Dr. Jasmin Steele Other Provider Dr. Davian Grier Other Provider Dr. Darline Lundy Attending Provider Dr. Darline Lundy Other Provider Dr. Jaylon Boone Attending Provider Rodríguez LOAN APPROVER, LOAN APPROVER-C Alexandra Primary Care Provider Dr. Law Gold Emergency Provider Dr. Jasmin Steele Admit Provider Dr. Jasmin Steele Other Provider Dr. Davian Grier Other Provider Dr. Darline Lundy Attending Provider Dr. Darline Lundy Other Provider Dr. Jaylon Boone Attending Provider Rodríguez STEWART.SHOELACE TIPPING MACHINE OPERATOR, Alexandra L Primary Care Provide r TAI, DIDI Referring Unavailable ARREGUIN, ALEXANDRA L Primary Care Unavailable TAI, DIDI Referring Unavailable ARREGUIN, ALEXANDRA L Primary Care Unavailable TAI, DIDI Referring Unavailable ARREGUIN, ALEXANDRA L Primary Care Unavailable PROVIDER, UNKNOWN Referring Unavailable ARREGUIN, ALEXANDRA L Primary Care Unavailable Arreguin LOAN APPROVER-C, Alexandra Primary Care Provider Arreguin LOAN APPROVER-C, Alexandra Referring Provider Saulo DEL RIO, Dr. Santos Attending Provider Tai LOAN APPROVER-C, Ddii Attending Provider Tai LOAN APPROVER-C, Didi Referring Provider Bobby OLS, [facility] Primary Care Provider Shavonne vailable Tai LOAN APPROVER-C, Didi Attending Provider Tai LOAN APPROVER-C, Didi Referring Provider Bobby OLS, Tressa Primary Care Provider Shavonne vailable Bobby HALL, [facility] Referring Provider Dr. Danielle Arciniega MD Attending Provider Bobby HALL, Tressa Primary Care Provider Shavonne vailaDr. Danielle Phillips MD Referring Provider Dr. Danielle Vernon MD Other Provider Bobby HALL [facility] Primary Care Physician Un available Saulo [...] Lilliana DEL RIO, Dr. Ramsey Nurse Practitioner [phone] Robin DEL RIO, Dr. Davian Richards Attending Physician Kamron DEL RIO, Dr. Gregorio Nurse Practitioner [phone] Martel DO, Dr. Rothman Attending Physician Shavonne vailable Robin DEL RIO, Dr. Davian Richards Nurse Practitioner Davian Kelly Attending Unavailable Braulio Tijerina Consulting Unavailable Bobby OLS, Tressa Primary Care Unavailab Stephan Urrutia Admitting Unavailable Stephan Martel Consulting Unavailable Darline Lundy Consulting Unavailable Davian Kelly Consulting Unavailable Tai LOAN APPROVER, Didi Referring Unavailable Tai LOAN APPROVER, Didi Attending Unavailable Bobby OLS, Tressa Primary [...] Prado Attending Unavailable SauloDanielle Attending Unavailable Rodríguez LOAN APPROVER, Alexandra Primary Care Unavailable Rodríguez LOAN APPROVER, Alexandra Referring Unavailable Danielle Vernon Attending Unavailable Bobby OLS, Tressa Referring Unavailab le Bobby OLS, Tressa Primary Care Unavailab le Bobby OLS, Tressa Referring Unavailab le Bobby OLS, Tressa Primary Care Unavailab Alexandria Prado Attending Unavailable Stephan Martel Attending Unavailable SauloDanielle Attending Unavailable Bobby OLS, Tressa Primary [facility] Unavailab le Danielle Vernon Consulting Unavailable Danielle Vernon Referring Unavailable Danielle Vernon Attending Unavailable Tressa Alan Primary [facility] Unavailab le Allergies Allergy Classification Reported Allergen(s) Allergy Type Date of Onset Reaction(s) Facility Acetaminophen / oxyCODONE (1 source) Acetaminophen / oxyCODONE; Translations: [OXYCODONE-ACETAM INOPHEN] Drug Allergy 3 [facility] (20 sources) Acetaminophen / oxyCODONE; Translations: [OXYCODONE-ACETAM INOPHEN] Drug Allergy 3 Rash, Itching [facility] (8 sources) oxyCODONE Drug Allergy 3 [facility] (4 sources) ARIPiprazole; Translations: [ARIPIPRAZOLE] Drug Allergy [address] [facility] (4 sources) Haloperidol; Translations: [HALOPERIDOL] Drug Allergy [address] [facility] (4 sources) Metoclopramide; Translations: [METOCLOPRAMIDE] Drug Allergy [address] [facility] (4 sources) Prochlorperazine; Translations: [PROCHLORPERAZINE ] Drug Allergy [address] [facility] (4 sources) Promethazine; Translations: [PROMETHAZINE] Drug Allergy [address] [facility] (1 source) OLANZapine; Translations: [OLANZAPINE] Drug Allergy 5 [facility] (1 source) oxyCODONE Drug Allergy 5 [place] [...] Start: 01-20-2025 take 1 capsule by [facility] once daily Start: 05-01-2023 End: 03-16-2024 take 1 tablet by mouth twice daily Ascorbic Acid (Vitamin C) (C-500) 500 mg tablet Discontinued 500 mg PO TWICE A DAY May 01, 2023 1:00am March 16, 2024 10:31am Comment on above: Take 1 tablet by [facility] two times a day. aspirin 81 [...] Start: 12-29-2022 take 2 tablets by mo [facility] three times daily Carbidopa-Levodopa [...] Comment on above: Take 1 tablet by [facility] four times daily. Take 4 tablets daily. [...] Start: 01-20-2025 take 1 capsule by mo [facility] once daily Start: 12-28-2024 [...] 11:21am docusate sodium 50 mg / sennosides, residential 8.6 mg oral tablet (19 sources) Start: [...] reveals residual T wave inversion from recent [place] Coronary atherosclerosis and other heart disease (20 sources) Coronary arteriosclerosis; Translations: [Atherosclerotic heart disease of [place] coronary artery without angina pectoris] Onset: 07-31-2022 10-09-2022 Chronic Coronary atherosclerosis and other heart disease (20 sources) Stented coronary artery; Translations: [Presence of coronary angioplasty implant and graft] Onset: 12-12-2021 07-25-2022 Episodic Comment on above: PTCA/FLOYD Mid-distal RCA-PCI/FLOYD 2.00w77ne @ [facility] 12/22/21; Prox/distal RCA 2.5x30mm and 2.5x12mm @ [facility], [place] 12/20/09 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 Alexandria Lion i, MD Age/Sex: 84/F [place] [facility] [place]: Signed Intake Vital Signs 12/28/24 13:11 01/20/25 01:17 02/15/25 09:47 Height 5 ft 2 in 5 ft 2 in 5 ft 2 in Weight: 166 lb 14 oz BMI 30.5 BP 130/75 H Pulse 75 Intake Visit Reasons: 4wk MED F/U Chief Complaint: myrbetriq follow up Manager Property Required: No Accompanied by: health aid Is [...] is afraid to stand on her own. 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 Normal [facility] Basic Metabolic Profile (BMP )on 01-27-2025 BUN Normal 07-30 [facility] Comment on above: Result Comment: Supa eubanks via OM: Ordered Performed By: #### L 503.0106, BTS, L500.4050, L100.0100, L501.9520 #### [facility] [address] [place], [address] BUN/CRE Normal 01-30 [facility] Comment on above: Result Comment: Supa eubanks via OM: Ordered Performed By: #### L 503.0106, BTS, L500.4050, L100.0100, L501.9520 #### [facility] [address] [place], [address] Calcium Normal 7.6-11.0 [facility] Comment on above: Result Comment: Canc elled via OM: MD Ordered Performed By: #### L 503.0106, BTS, L500.4050, L100.0100, L501.9520 #### [facility] [address] [place], [address] CL Normal 98-108 [facility] Comment on above: Result Comment: Canc elled via OM: MD Ordered Performed By: #### L 503.0106, BTS, L500.4050, L100.0100, L501.9520 #### [facility] [address] [place], [address] CO2 Normal 21.0-32.0 [facility] Comment on above: Result Comment: Canc elled via OM: MD Ordered Performed By: #### L 503.0106, BTS, L500.4050, L100.0100, L501.9520 #### [facility] [address] [place], [address] CREAT,SERUM Normal 0.70-1.20 [facility] Comment on above: Result Comment: Canc elled via OM: MD Ordered Performed By: #### L 503.0106, BTS, L500.4050, L100.0100, L501.9520 #### [facility] [address] [place], [address] eGFR Normal >60 [facility] Comment on above: Result Comment: Canc elled via OM: MD Ordered Performed By: #### L 503.0106, BTS, L500.4050, L100.0100, L501.9520 #### [facility] [address] [place], [address] GAP Normal 5-15 [facility] Comment on above: Result Comment: Canc elled via OM: MD Ordered Performed By: #### L 503.0106, BTS, L500.4050, L100.0100, L501.9520 #### [facility] [address] [place], [address] GLU Normal 70-99 [facility] Comment on above: Result Comment: Canc elled via OM: MD Ordered Performed By: #### L 503.0106, BTS, L500.4050, L100.0100, L501.9520 #### [facility] [address] [place], [address] Potassium Normal 3.3-5.1 [facility] Comment on above: Result Comment: Canc elled via OM: MD Ordered Performed By: #### L 503.0106, BTS, L500.4050, L100.0100, L501.9520 #### [facility] [address] [place], [address] Basic Metabolic Profile (BMP) Normal 133-145 [facility] Comment on above: Result Comment: Canc elled via OM: MD Ordered Performed By: #### L 503.0106, BTS, L500.4050, L100.0100, L501.9520 #### [facility] [address] [place], [address] CBC-Complete Blood Cnt No Di ffon 01-27-2025 HCT Normal 37-47 [facility] Comment on above: Result Comment: Canc elled via OM: Order cancelled - Patient discharged Performed By: #### L 503.0106, BTS, L500.4050, L100.0100, L501.9520 #### [facility] [address] [place], [address] HGB Normal 12.0-15.0 [facility] Comment on above: Result Comment: Canc elled via OM: Order cancelled - Patient discharged Performed By: #### L 503.0106, BTS, L500.4050, L100.0100, L501.9520 #### [facility] [address] [place], [address] MCH Normal 27.0-32.0 [facility] Comment on above: Result Comment: Canc elled via OM: Order cancelled - Patient discharged Performed By: #### L 503.0106, BTS, L500.4050, L100.0100, L501.9520 #### [facility] [address] [place], [address] MCHC Normal 32-36 [facility] Comment on above: Result Comment: Canc elled via OM: Order cancelled - Patient discharged Performed By: #### L 503.0106, BTS, L500.4050, L100.0100, L501.9520 #### [facility] [address] [place], [address] MCV Normal 81-99 [facility] Comment on above: Result Comment: Canc elled via OM: Order cancelled - Patient discharged Performed By: #### L 503.0106, BTS, L500.4050, L100.0100, L501.9520 #### [facility] [address] [place], [address] PLT Normal 150-450 [facility] Comment on above: Result Comment: Canc elled via OM: Order cancelled - Patient discharged Performed By: #### L 503.0106, BTS, L500.4050, L100.0100, L501.9520 #### [facility] [address] [place], [address] RBC Normal 4.2-5.4 [facility] Comment on above: Result Comment: Canc elled via OM: Order cancelled - Patient discharged Performed By: #### L 503.0106, BTS, L500.4050, L100.0100, L501.9520 #### [facility] [address] [place], [address] RDW CV Normal 11.6-14.6 [facility] Comment on above: Result Comment: Canc elled via OM: Order cancelled - Patient discharged Performed By: #### L 503.0106, BTS, L500.4050, L100.0100, L501.9520 #### [facility] [address] [place], [address] RDW SD Normal 35.1-43.9 [facility] Comment on above: Result Comment: Canc elled via OM: Order cancelled - Patient discharged Performed By: #### L 503.0106, BTS, L500.4050, L100.0100, L501.9520 #### [facility] [address] [place], [address] WBC Normal 4.4-11.0 [facility] Comment on above: Result Comment: Canc elled via OM: Order cancelled - Patient discharged Performed By: #### L 503.0106, BTS, L500.4050, L100.0100, L501.9520 #### [facility] [address] [place], [address] Surgical pathology reportOrd ered By: Debbie Corea on 01-27-2025 Surgical pathology study [facility] Basic Metabolic Profile (BMP )on 01-26-2025 BUN Normal 4-19 [facility] Comment on above: Result Comment: Canc elled via OM: MD Ordered Performed By: #### L 503.0106, BTS, L500.4050, L100.0100, L501.9520 #### [facility] [address] [place], [address] BUN/CRE Normal 10-20 [facility] Comment on above: Result Comment: Canc elled via OM: MD Ordered Performed By: #### L 503.0106, BTS, L500.4050, L100.0100, L501.9520 #### [facility] [address] [place], [address] Calcium Normal 7.6-11.0 [facility] Comment on above: Result Comment: Canc elled via OM: MD Ordered Performed By: #### L 503.0106, BTS, L500.4050, L100.0100, L501.9520 #### [facility] [address] [place], [address] CL Normal 98-108 [facility] Comment on above: Result Comment: Canc elled via OM: MD Ordered Performed By: #### L 503.0106, BTS, L500.4050, L100.0100, L501.9520 #### [facility] [address] [place], [address] CO2 Normal 21.0-32.0 [facility] Comment on above: Result Comment: Canc elled via OM: MD Ordered Performed By: #### L 503.0106, BTS, L500.4050, L100.0100, L501.9520 #### [facility] [address] [place], [address] CREAT,SERUM Normal 0.70-1.20 [facility] Comment on above: Result Comment: Canc elled via OM: MD Ordered Performed By: #### L 503.0106, BTS, L500.4050, L100.0100, L501.9520 #### [facility] [address] [place], [address] eGFR Normal >60 [facility] Comment on above: Result Comment: Canc elled via OM: MD Ordered Performed By: #### L 503.0106, BTS, L500.4050, L100.0100, L501.9520 #### [facility] [address] [place], [address] GAP Normal 5-15 [facility] Comment on above: Result Comment: Canc elled via OM: MD Ordered Performed By: #### L 503.0106, BTS, L500.4050, L100.0100, L501.9520 #### [facility] [address] [place], [address] GLU Normal 70-99 [facility] Comment on above: Result Comment: Canc elled via OM: MD Ordered Performed By: #### L 503.0106, BTS, L500.4050, L100.0100, L501.9520 #### [facility] [address] [place], [address] Potassium Normal 3.3-5.1 [facility] Comment on above: Result Comment: Canc elled via OM: MD Ordered Performed By: #### L 503.0106, BTS, L500.4050, L100.0100, L501.9520 #### [facility] [address] [place], [address] Basic Metabolic Profile (BMP) Normal 133-145 [facility] Comment on above: Result Comment: Canc elled via OM: MD Ordered Performed By: #### L 503.0106, BTS, L500.4050, L100.0100, L501.9520 #### [facility] [address] [place], [address] CBC-Complete Blood Cnt No Di ffon 01-26-2025 HCT Normal 37-47 [facility] Comment on above: Result Comment: Canc elled via OM: Order cancelled - Patient discharged Performed By: #### L 503.0106, BTS, L500.4050, L100.0100, L501.9520 #### [facility] [address] [place], [address] HGB Normal 12.0-15.0 [facility] Comment on above: Result Comment: Canc elled via OM: Order cancelled - Patient discharged Performed By: #### L 503.0106, BTS, L500.4050, L100.0100, L501.9520 #### [facility] [address] [place], [address] MCH Normal 27.0-32.0 [facility] Comment on above: Result Comment: Canc elled via OM: Order cancelled - Patient discharged Performed By: #### L 503.0106, BTS, L500.4050, L100.0100, L501.9520 #### [facility] [address] [place], [address] MCHC Normal 32-36 [facility] Comment on above: Result Comment: Canc elled via OM: Order cancelled - Patient discharged Performed By: #### L 503.0106, BTS, L500.4050, L100.0100, L501.9520 #### [facility] [address] [place], [address] MCV Normal 81-99 [facility] Comment on above: Result Comment: Canc elled via OM: Order cancelled - Patient discharged Performed By: #### L 503.0106, BTS, L500.4050, L100.0100, L501.9520 #### [facility] [address] [place], [address] PLT Normal 150-450 [facility] Comment on above: Result Comment: Canc elled via OM: Order cancelled - Patient discharged Performed By: #### L 503.0106, BTS, L500.4050, L100.0100, L501.9520 #### [facility] [address] [place], [address] RBC Normal 4.2-5.4 [facility] Comment on above: Result Comment: Canc elled via OM: Order cancelled - Patient discharged Performed By: #### L 503.0106, BTS, L500.4050, L100.0100, L501.9520 #### [facility] [address] [place], [address] RDW CV Normal 11.6-14.6 [facility] Comment on above: Result Comment: Canc elled via OM: Order cancelled - Patient discharged Performed By: #### L 503.0106, BTS, L500.4050, L100.0100, L501.9520 #### [facility] [address] [place], [address] RDW SD Normal 35.1-43.9 [facility] Comment on above: Result Comment: Canc elled via OM: Order cancelled - Patient discharged Performed By: #### L 503.0106, BTS, L500.4050, L100.0100, L501.9520 #### [facility] [address] [place], [address] WBC Normal 4.4-11.0 [facility] Comment on above: Result Comment: Canc elled via OM: Order cancelled - Patient discharged Performed By: #### L 503.0106, BTS, L500.4050, L100.0100, L501.9520 #### [facility] [address] [place], [address] Basic Metabolic Profile (BMP )on 01-25-2025 BUN Normal -19 [facility] Comment on above: Result Comment: Canc elled via OM: MD Ordered Performed By: #### L 500.2500, L100.0500 #### [facility] [address] [place], [address] BUN/CRE Normal - [facility] Comment on above: Result Comment: Canc elled via OM: MD Ordered Performed By: #### L 500.2500, L100.0500 #### [facility] [address] [place], [address] Calcium Normal 7.6-11.0 [facility] Comment on above: Result Comment: Canc elled via OM: MD Ordered Performed By: #### L 500.2500, L100.0500 #### [facility] [address] [place], [address] CL Normal 98-108 [facility] Comment on above: Result Comment: Canc elled via OM: MD Ordered Performed By: #### L 500.2500, L100.0500 #### [facility] [address] [place], [address] CO2 Normal 21.0-32.0 [facility] Comment on above: Result Comment: Canc elled via OM: MD Ordered Performed By: #### L 500.2500, L100.0500 #### [facility] [address] [place], [address] CREAT,SERUM Normal 0.70-1.20 [facility] Comment on above: Result Comment: Canc elled via OM: MD Ordered Performed By: #### L 500.2500, L100.0500 #### [facility] [address] [place], [address] eGFR Normal >60 [facility] Comment on above: Result Comment: Canc elled via OM: MD Ordered Performed By: #### L 500.2500, L100.0500 #### [facility] [address] [place], [address] GAP Normal 5-15 [facility] Comment on above: Result Comment: Canc elled via OM: MD Ordered Performed By: #### L 500.2500, L100.0500 #### [facility] [address] [place], [address] GLU Normal 70-99 [facility] Comment on above: Result Comment: Canc elled via OM: MD Ordered Performed By: #### L 500.2500, L100.0500 #### [facility] [address] [place], [address] Potassium Normal 3.3-5.1 [facility] Comment on above: Result Comment: Canc elled via OM: MD Ordered Performed By: #### L 500.2500, L100.0500 #### [facility] [address] [place], [address] Basic Metabolic Profile (BMP) Normal 133-145 [facility] Comment on above: Result Comment: Canc elled via OM: MD Ordered Performed By: #### L 500.2500, L100.0500 #### [facility] [address] [place], [address] CBC-Complete Blood Cnt No Di ffon 01-25-2025 Erythrocyte distribution width (RBC) [Ratio] 13.2 % Normal 11.6-14.6 [facility] Comment on above: Performed By: #### L 500.2500, L100.0500 #### [facility] [address] [place], [address] Hematocrit (Bld) [Volume fraction] 24.9 % Low 37-47 [facility] Comment on above: Performed By: #### L 500.2500, L100.0500 #### [facility] [address] [place], [address] Hemoglobin (Bld) [Mass/Vol] 8.4 g/dL Low 12.0-15.0 [facility] Comment on above: Performed By: #### L 500.2500, L100.0500 #### [facility] [address] [place], [address] MCH (RBC) [Entitic mass] 27.9 pg Normal 27.0-32.0 [facility] Comment on above: Performed By: #### L 500.2500, L100.0500 #### [facility] [address] [place], [address] MCHC (RBC) [Mass/Vol] 33.7 g/dL Normal 32-36 [facility] Comment on above: Performed By: #### L 500.2500, L100.0500 #### [facility] [address] [place], [address] MCV (RBC) [Entitic vol] 82.7 fL Normal 81-99 [facility] Comment on above: Performed By: #### L 500.2500, L100.0500 #### [facility] [address] [place], [address] Platelet mean volume (Bld) [Entitic vol] 8.7 fL Normal 6.2-12.0 [facility] Comment on above: Performed By: #### L 500.2500, L100.0500 #### [facility] [address] [place], [address] Platelets (Bld) [#/Vol] 362 10*3/uL Normal 150-450 [facility] Comment on above: Performed By: #### L 500.2500, L100.0500 #### [facility] [address] [place], [address] RBC (Bld) [#/Vol] 3.01 10*6/uL Low 4.2-5.4 [facility] Comment on above: Performed By: #### L 500.2500, L100.0500 #### [facility] [address] [place], [address] RDW SD 40.2 fl Normal 35.1-43.9 [facility] Comment on above: Performed By: #### L 500.2500, L100.0500 #### [facility] [address] [place], [address] WBC (Bld) [#/Vol] 8.6 10*3/uL Normal 4.4-11.0 [facility] Comment on above: Performed By: #### L 500.2500, L100.0500 #### [facility] [address] [place], [address] COVID 19 AG RAPID (AUGUSTIN Carlson)on 01-25-2025 SARS-CoV-2 (COVID-19) RNA DESHAUN+probe Ql (Unsp spec) SARS-CoV-2 (COVID 19) Negative RAPID METHOD Bin[employer]Now COVID19 Ag Card Normal [facility] Comment on above: Performed By: #### L 503.0106, BTS, L500.4050, L100.0100, L501.9520 #### [facility] [address] [place], [place], [id number] COVID-19 virus antigen assay Ordered By: Davian Kelly on 01-25-2025 SARS-CoV-2 (COVID-19) Ag IA.rapid Ql (Resp) [facility] Erythrocyte distribution wid th ratioOrdered By: Darline Lundy on 01-25-2025 Erythrocyte distribution width (RBC) [Ratio] 13.2 % 11.6-14.6 [facility] Erythrocyte distribution wid th standard deviationOrdered By: Darline Lundy on 01-25-2025 Erythrocyte distribution width (RBC) [Ratio] 40.2 fl 35.1-43.9 [facility] Hematocrit Auto (Bld) [Volum e fraction]Ordered By: Darline Lundy on 01-25-2025 Hematocrit (Bld) [Volume fraction] 24.9 % Low 37-47 [facility] Hemoglobin measurementOrdere d By: Darline Lundy on 01-25-2025 Hemoglobin (Bld) [Mass/Vol] 8.4 g/dL Low 12.0-15.0 [facility] MCV (mean corpuscular volume ) determinationOrdered By: Darline Lundy on 01-25-2025 MCV (RBC) [Entitic vol] 82.7 fL 81-99 [facility] Mean corpuscular hemoglobin (MCH) determinationOrdered By: Darline Lundy on 01-25-2025 MCH (RBC) [Entitic mass] 27.9 pg 27.0-32.0 [facility] Mean corpuscular hemoglobin concentration (MCHC) determinationOrdered By: Darline Lundy on 01-25-2025 MCHC (RBC) [Mass/Vol] 33.7 g/dL 32-36 [facility] Mean platelet volume determi nationOrdered By: Darline Lundy on 01-25-2025 Platelet mean volume (Bld) [Entitic vol] 8.7 fL 6.2-12.0 [facility] Platelet countOrdered By: Luiz Lundy on 01-25-2025 Platelets (Bld) [#/Vol] 362 10*3/uL 150-450 [facility] RBC Auto (Bld) [#/Vol]Ordere d By: Darline Lundy on 01-25-2025 RBC (Bld) [#/Vol] 3.01 10*6/uL Low 4.2-5.4 [facility] White blood cell (WBC) count Ordered By: Darline Lundy on 01-25-2025 WBC (Bld) [#/Vol] 8.6 10*3/uL 4.4-11.0 [facility] Anion gap in Serum or Plasma Ordered By: Darline Lundy on 01-24-2025 Anion gap [Moles/Vol] 9 mmol/L 08-25 [facility] BUN/creatinine ratioOrdered By: Darline Lundy on 01-24-2025 Urea nitrogen/Creatinine [Mass ratio] 28.0 mg/mg High 01-30 [facility] Basic Metabolic Profile (BMP )on 01-24-2025 BUN/CRE 28.0 RATIO High 01-30 [facility] Comment on above: Performed By: #### L 503.0106, BTS, L500.4050, L100.0100, L501.9520 #### [facility] [address] [place], [address] Calcium [Mass/Vol] 8.4 mg/dL Normal 7.6-11.0 [facility] Comment on above: Performed By: #### L 503.0106, BTS, L500.4050, L100.0100, L501.9520 #### [facility] [address] [place], [address] Chloride [Moles/Vol] 103 mmol/L Normal 98-108 [facility] Comment on above: Performed By: #### L 503.0106, BTS, L500.4050, L100.0100, L501.9520 #### [facility] [address] [place], [address] CO2 [Moles/Vol] 24.5 mmol/L Normal 21.0-32.0 [facility] Comment on above: Performed By: #### L 503.0106, BTS, L500.4050, L100.0100, L501.9520 #### [facility] [address] [place], [address] Creatinine [Mass/Vol] 0.68 mg/dL Low 0.70-1.20 [facility] Comment on above: Performed By: #### L 503.0106, BTS, L500.4050, L100.0100, L501.9520 #### [facility] [address] [place], [address] ECRCL 49.12 ml/min Low 50-250 [facility] Comment on above: Performed By: #### L 503.0106, BTS, L500.4050, L100.0100, [id number] #### [facility] [address] [place], [address] GAP 9 Normal 5-15 [facility] Comment on above: Performed By: #### L 503.0106, BTS, L500.4050, L100.0100, L501.9520 #### [facility] [address] [place], [address] GFR/1.73 sq M.predicted among non-blacks MDRD (S/P/Bld) [Vol rate/Area] 86 mL/min/{1.73_m2} Normal >60 [facility] Comment on above: Result Comment: mL/m in/1.73m2 CKD-EPI Creatinine Equation (2020) Performed By: #### L 503.0106, BTS, L500.4050, L100.0100, L501.9520 #### [facility] [address] [place], [address] Glucose [Mass/Vol] 97 mg/dL Normal 70-99 [facility] Comment on above: Performed By: #### L 503.0106, BTS, L500.4050, L100.0100, L501.9520 #### [facility] [address] [place], [address] Potassium [Moles/Vol] 3.9 mmol/L Normal 3.3-5.1 [facility] Comment on above: Performed By: #### L 503.0106, BTS, L500.4050, L100.0100, L501.9520 #### [facility] [address] [place], [address] Sodium [Moles/Vol] 136 mmol/L Normal 133-145 [facility] Comment on above: Performed By: #### L 503.0106, BTS, L500.4050, L100.0100, L501.9520 #### [facility] [address] [place], [address] Urea nitrogen [Mass/Vol] 19 mg/dL Normal 4-19 [facility] Comment on above: Performed By: #### L 503.0106, BTS, L500.4050, L100.0100, L501.9520 #### [facility] [address] [place], [address] CBC-Complete Blood Cnt No Di ffon 01-24-2025 Erythrocyte distribution width (RBC) [Ratio] 13.2 % Normal 11.6-14.6 [facility] Comment on above: Performed By: #### L 503.0106, BTS, L500.4050, L100.0100, L501.9520 #### [facility] [address] [place], [address] Hematocrit (Bld) [Volume fraction] 25.0 % Low 37-47 [facility] Comment on above: Performed By: #### L 503.0106, BTS, L500.4050, L100.0100, L501.9520 #### [facility] [address] [place], [address] Hemoglobin (Bld) [Mass/Vol] 8.2 g/dL Low 12.0-15.0 [facility] Comment on above: Performed By: #### L 503.0106, BTS, L500.4050, L100.0100, L501.9520 #### [facility] [address] [place], [address] MCH (RBC) [Entitic mass] 27.5 pg Normal 27.0-32.0 [facility] Comment on above: Performed By: #### L 503.0106, BTS, L500.4050, L100.0100, L501.9520 #### [facility] [address] [place], [address] MCHC (RBC) [Mass/Vol] 32.8 g/dL Normal 32-36 [facility] Comment on above: Performed By: #### L 503.0106, BTS, L500.4050, L100.0100, L501.9520 #### [facility] [address] [place], [address] MCV (RBC) [Entitic vol] 83.9 fL Normal 81-99 [facility] Comment on above: Performed By: #### L 503.0106, BTS, L500.4050, L100.0100, L501.9520 #### [facility] [address] [place], [address] Platelet mean volume (Bld) [Entitic vol] 9.1 fL Normal 6.2-12.0 [facility] Comment on above: Performed By: #### L 503.0106, BTS, L500.4050, L100.0100, L501.9520 #### [facility] [address] [place], [address] Platelets (Bld) [#/Vol] 308 10*3/uL Normal 150-450 [facility] Comment on above: Performed By: #### L 503.0106, BTS, L500.4050, L100.0100, L501.9520 #### [facility] [address] [place], [address] RBC (Bld) [#/Vol] 2.98 10*6/uL Low 4.2-5.4 [facility] Comment on above: Performed By: #### L 503.0106, BTS, L500.4050, L100.0100, L501.9520 #### [facility] [address] [place], [address] RDW SD 40.6 fl Normal 35.1-43.9 [facility] Comment on above: Performed By: #### L 503.0106, BTS, L500.4050, L100.0100, L501.9520 #### [facility] [address] [place], [address] WBC (Bld) [#/Vol] 8.6 10*3/uL Normal 4.4-11.0 [facility] Comment on above: Performed By: #### L 503.0106, BTS, L500.4050, L100.0100, L501.9520 #### [facility] [address] [place], [address] Carbon dioxide, total [Moles /volume] in Central venous bloodOrdered By: Darline Lundy on 01-24-2025 CO2 [Moles/Vol] 24.5 mmol/L 21.0-32.0 [facility] Chloride assayOrdered By: Luiz Lundy on 01-24-2025 Chloride [Moles/Vol] 103 mmol/L 98-108 [facility] Glomerular filtration rate ( GFR) estimation/1.73 sq m using serum, plasma, or whole bOrdered By: Darline Lundy on 01-24-2025 GFR/1.73 sq M.predicted among non-blacks MDRD (S/P/Bld) [Vol rate/Area] 86 mL/min/{1.73_m2} >60 [facility] Comment on above: mL/min/1.73m2 CKD-EP I Creatinine Equation (2020) HH, Hemoglobin AND Hematocri ton 01-24-2025 Hematocrit (Bld) [Volume fraction] 25.1 % Low 37-47 [facility] Comment on above: Performed By: #### L 503.0106, BTS, L500.4050, L100.0100, L501.9520 #### [facility] [address] [place], [address] Hemoglobin (Bld) [Mass/Vol] 8.5 g/dL Low 12.0-15.0 [facility] Comment on above: Performed By: #### L 503.0106, BTS, L500.4050, L100.0100, L501.9520 #### [facility] [address] [facility] [place], [address] Potassium measurement (mass/ volume)Ordered By: Darline Lundy on 01-24-2025 Potassium (Unsp spec) [Mass/Vol] 3.9 mmol/L 3.3-5.1 [facility] Serum creatinine measurement (mass/volume)Ordered By: Darline Lundy on 01-24-2025 Creatinine [Mass/Vol] 0.68 mg/dL Low 0.70-1.20 [facility] Serum glucose measurement (m ass/volume)Ordered By: Darline Lundy on 01-24-2025 Glucose [Mass/Vol] 97 mg/dL 70-99 [facility] Serum or plasma calcium taylor urement (mass/volume)Ordered By: Darline Lundy on 01-24-2025 Calcium [Mass/Vol] 8.4 mg/dL 7.6-11.0 [facility] Serum or plasma urea nitroge n measurement (mass/volume)Ordered By: Darline Lundy on 01-24-2025 Urea nitrogen [Mass/Vol] 19 mg/dL 4-19 [facility] Sodium levelOrdered By: Oscar Lundy on 01-24-2025 Sodium [Moles/Vol] 136 mmol/L 133-145 [facility] Basic Metabolic Profile (BMP )on 01-23-2025 BUN/CRE 26.3 RATIO High 10-20 [facility] Comment on above: Performed By: #### L 503.0106, BTS, L500.4050, L100.0100, L501.9520 #### [facility] [address] [place], [address] Calcium [Mass/Vol] 8.3 mg/dL Normal 7.6-11.0 [facility] Comment on above: Performed By: #### L 503.0106, BTS, L500.4050, L100.0100, L501.9520 #### [facility] [address] [place], [address] Chloride [Moles/Vol] 102 mmol/L Normal 98-108 [facility] Comment on above: Performed By: #### L 503.0106, BTS, L500.4050, L100.0100, L501.9520 #### [facility] [address] [place], [address] CO2 [Moles/Vol] 24.2 mmol/L Normal 21.0-32.0 [facility] Comment on above: Performed By: #### L 503.0106, BTS, L500.4050, L100.0100, L501.9520 #### [facility] [address] [place], [address] Creatinine [Mass/Vol] 0.61 mg/dL Low 0.70-1.20 [facility] Comment on above: Performed By: #### L 503.0106, BTS, L500.4050, L100.0100, L501.9520 #### [facility] [address] [place], [address] ECRCL 49.16 ml/min Low 50-250 [facility] Comment on above: Performed By: #### L 503.0106, BTS, L500.4050, L100.0100, L501.9520 #### [facility] [address] [place], [address] GAP 9 Normal 5-15 [facility] Comment on above: Performed By: #### L 503.0106, BTS, L500.4050, L100.0100, L501.9520 #### [facility] [address] [place], [address] GFR/1.73 sq M.predicted among non-blacks MDRD (S/P/Bld) [Vol rate/Area] 89 mL/min/{1.73_m2} Normal >60 [facility] Comment on above: Result Comment: mL/m in/1.73m2 CKD-EPI Creatinine Equation (2020) Performed By: #### L 503.0106, BTS, L500.4050, L100.0100, L501.9520 #### [facility] [address] [place], [address] Glucose [Mass/Vol] 105 mg/dL High 70-99 [facility] Comment on above: Performed By: #### L 503.0106, BTS, L500.4050, L100.0100, L501.9520 #### [facility] [address] [place], [address] Potassium [Moles/Vol] 3.8 mmol/L Normal 3.3-5.1 [facility] Comment on above: Performed By: #### L 503.0106, BTS, L500.4050, L100.0100, L501.9520 #### [facility] [address] [place], [address] Sodium [Moles/Vol] 135 mmol/L Normal 133-145 [facility] Comment on above: Performed By: #### L 503.0106, BTS, L500.4050, L100.0100, L501.9520 #### [facility] [address] [place], [address] Urea nitrogen [Mass/Vol] 16 mg/dL Normal 4-19 [facility] Comment on above: Performed By: #### L 503.0106, BTS, L500.4050, L100.0100, L501.9520 #### [facility] [address] [place], [address] CBC-Complete Blood Cnt No Di ffon 01-23-2025 Erythrocyte distribution width (RBC) [Ratio] 13.2 % Normal 11.6-14.6 [facility] Comment on above: Performed By: #### L 503.0106, BTS, L500.4050, L100.0100, L501.9520 #### [facility] [address] [place], [address] Hematocrit (Bld) [Volume fraction] 25.6 % Low 37-47 [facility] Comment on above: Performed By: #### L 503.0106, BTS, L500.4050, L100.0100, L501.9520 #### [facility] [address] [place], [address] Hemoglobin (Bld) [Mass/Vol] 8.6 g/dL Low 12.0-15.0 [facility] Comment on above: Performed By: #### L 503.0106, BTS, L500.4050, L100.0100, L501.9520 #### [facility] [address] [place], [address] MCH (RBC) [Entitic mass] 27.7 pg Normal 27.0-32.0 [facility] Comment on above: Performed By: #### L 503.0106, BTS, L500.4050, L100.0100, L501.9520 #### [facility] [address] [place], [address] MCHC (RBC) [Mass/Vol] 33.6 g/dL Normal 32-36 [facility] Comment on above: Performed By: #### L 503.0106, BTS, L500.4050, L100.0100, L501.9520 #### [facility] [address] [place], [address] MCV (RBC) [Entitic vol] 82.6 fL Normal 81-99 [facility] Comment on above: Performed By: #### L 503.0106, BTS, L500.4050, L100.0100, L501.9520 #### [facility] [address] [place], [address] Platelet mean volume (Bld) [Entitic vol] 9.2 fL Normal 6.2-12.0 [facility] Comment on above: Performed By: #### L 503.0106, BTS, L500.4050, L100.0100, L501.9520 #### [facility] [address] [place], [address] Platelets (Bld) [#/Vol] 250 10*3/uL Normal 150-450 [facility] Comment on above: Performed By: #### L 503.0106, BTS, L500.4050, L100.0100, L501.9520 #### [facility] [address] [place], [address] RBC (Bld) [#/Vol] 3.10 10*6/uL Low 4.2-5.4 [facility] Comment on above: Performed By: #### L 503.0106, BTS, L500.4050, L100.0100, L501.9520 #### [facility] [address] [place], [address] RDW SD 39.6 fl Normal 35.1-43.9 [facility] Comment on above: Performed By: #### L 503.0106, BTS, L500.4050, L100.0100, L501.9520 #### [facility] [address] [place], [address] WBC (Bld) [#/Vol] 8.6 10*3/uL Normal 4.4-11.0 [facility] Comment on above: Performed By: #### L 503.0106, BTS, L500.4050, L100.0100, L501.9520 #### [facility] [address] [place], [address] Ferritinon 01-23-2025 Ferritin [Mass/Vol] 1208 ng/mL High 22-378 [facility] Comment on above: Performed By: #### L 503.6030, L503.6550 #### [facility] [address] [place], [address] Iron measurement (mass/mass) Ordered By: Davian Kelly on 01-23-2025 Iron (Unsp spec) [Mass/Mass] 70 ug/dL 50-170 [facility] Iron+Iron Binding Capacityon 01-23-2025 TIBC 189 ug/dL Low 250-450 [facility] Comment on above: Performed By: #### L 503.6030, L503.6550 #### [facility] [address] [place], [address] No Panel InformationOrdered By: Davian Kelly on 01-23-2025 Unsaturated Iron Binding Capacity 119 ug/dL Low 228-428 [facility] Serum or plasma ferritin allison surement (mass/volume)Ordered By: Davian Kelly on 01-23-2025 Ferritin [Mass/Vol] 1208 ng/mL High 22-378 [facility] Serum or plasma iron saturat ion measurement (mass fraction)Ordered By: Davian Kelly on 01-23-2025 Iron saturation [Mass fraction] 37.0 % 13-59 [facility] Basic Metabolic Profile (BMP )on 01-22-2025 BUN/CRE 27.5 RATIO High 1020 [facility] Comment on above: Performed By: #### L 503.0106, BTS, L500.4050, L100.0100, L501.9520 #### [facility] [address] [place], [address] Calcium [Mass/Vol] 8.2 mg/dL Normal 7.6-11.0 [facility] Comment on above: Performed By: #### L 503.0106, BTS, L500.4050, L100.0100, L501.9520 #### [facility] [address] [place], [address] Chloride [Moles/Vol] 103 mmol/L Normal 98-108 [facility] Comment on above: Performed By: #### L 503.0106, BTS, L500.4050, L100.0100, L501.9520 #### [facility] [address] [place], [address] CO2 [Moles/Vol] 23.1 mmol/L Normal 21.0-32.0 [facility] Comment on above: Performed By: #### L 503.0106, BTS, L500.4050, L100.0100, L501.9520 #### [facility] [address] [place], [address] Creatinine [Mass/Vol] 0.64 mg/dL Low 0.70-1.20 [facility] Comment on above: Performed By: #### L 503.0106, BTS, L500.4050, L100.0100, L501.9520 #### [facility] [address] [place], [address] ECRCL 50.86 ml/min Normal 50-250 [facility] Comment on above: Performed By: #### L 503.0106, BTS, L500.4050, L100.0100, L501.9520 #### [facility] [address] [place], [address] GAP 10 Normal 5-15 [facility] Comment on above: Performed By: #### L 503.0106, BTS, L500.4050, L100.0100, L501.9520 #### [facility] [address] [place], [address] GFR/1.73 sq M.predicted among non-blacks MDRD (S/P/Bld) [Vol rate/Area] 88 mL/min/{1.73_m2} Normal >60 [facility] Comment on above: Result Comment: mL/m in/1.73m2 CKD-EPI Creatinine Equation (2020) Performed By: #### L 503.0106, BTS, L500.4050, L100.0100, L501.9520 #### [facility] [address] [place], [address] Glucose [Mass/Vol] 135 mg/dL High 70-99 [facility] Comment on above: Performed By: #### L 503.0106, BTS, L500.4050, L100.0100, L501.9520 #### [facility] [address] [place], [address] Potassium [Moles/Vol] 4.2 mmol/L Normal 3.3-5.1 [facility] Comment on above: Performed By: #### L 503.0106, BTS, L500.4050, L100.0100, L501.9520 #### [facility] [address] [place], [address] Sodium [Moles/Vol] 136 mmol/L Normal 133-145 [facility] Comment on above: Performed By: #### L 503.0106, BTS, L500.4050, L100.0100, L501.9520 #### [facility] [address] [place], [address] Urea nitrogen [Mass/Vol] 18 mg/dL Normal 4-19 [facility] Comment on above: Performed By: #### L 503.0106, BTS, L500.4050, L100.0100, L501.9520 #### [facility] [address] [place], [address] CBC-Complete Blood Cnt No Di ffon 01-22-2025 Erythrocyte distribution width (RBC) [Ratio] 13.0 % Normal 11.6-14.6 [facility] Comment on above: Performed By: #### L 503.0106, BTS, L500.4050, L100.0100, L501.9520 #### [facility] [address] [place], [address] Hematocrit (Bld) [Volume fraction] 26.6 % Low 37-47 [facility] Comment on above: Performed By: #### L 503.0106, BTS, L500.4050, L100.0100, L501.9520 #### [facility] [address] [place], [address] Hemoglobin (Bld) [Mass/Vol] 9.1 g/dL Low 12.0-15.0 [facility] Comment on above: Performed By: #### L 503.0106, BTS, L500.4050, L100.0100, L501.9520 #### [facility] [address] [place], [address] MCH (RBC) [Entitic mass] 27.9 pg Normal 27.0-32.0 [facility] Comment on above: Performed By: #### L 503.0106, BTS, L500.4050, L100.0100, L501.9520 #### [facility] [address] [place], [address] MCHC (RBC) [Mass/Vol] 34.2 g/dL Normal 32-36 [facility] Comment on above: Performed By: #### L 503.0106, BTS, L500.4050, L100.0100, L501.9520 #### [facility] [address] [place], [address] MCV (RBC) [Entitic vol] 81.6 fL Normal 81-99 [facility] Comment on above: Performed By: #### L 503.0106, BTS, L500.4050, L100.0100, L501.9520 #### [facility] [address] [place], [address] Platelet mean volume (Bld) [Entitic vol] 9.2 fL Normal 6.2-12.0 [facility] Comment on above: Performed By: #### L 503.0106, BTS, L500.4050, L100.0100, L501.9520 #### [facility] [address] [place], [address] Platelets (Bld) [#/Vol] 211 10*3/uL Normal 150-450 [facility] Comment on above: Performed By: #### L 503.0106, BTS, L500.4050, L100.0100, L501.9520 #### [facility] [address] [place], [address] RBC (Bld) [#/Vol] 3.26 10*6/uL Low 4.2-5.4 [facility] Comment on above: Performed By: #### L 503.0106, BTS, L500.4050, L100.0100, L501.9520 #### [facility] [address] [place], [address] RDW SD 39.3 fl Normal 35.1-43.9 [facility] Comment on above: Performed By: #### L 503.0106, BTS, L500.4050, L100.0100, L501.9520 #### [facility] [address] [place], [address] WBC (Bld) [#/Vol] 8.6 10*3/uL Normal 4.4-11.0 [facility] Comment on above: Performed By: #### L 503.0106, BTS, L500.4050, L100.0100, L501.9520 #### [facility] [address] [place], [address] Basic Metabolic Profile (BMP )on 01-21-2025 BUN/CRE 16.5 RATIO Normal 10-20 [facility] Comment on above: Performed By: #### L 503.0106, BTS, L500.4050, L100.0100, L501.9520 #### [facility] [address] [place], [address] Calcium [Mass/Vol] 7.8 mg/dL Normal 7.6-11.0 [facility] Comment on above: Performed By: #### L 503.0106, BTS, L500.4050, L100.0100, L501.9520 #### [facility] [address] [place], [address] Chloride [Moles/Vol] 103 mmol/L Normal 98-108 [facility] Comment on above: Performed By: #### L 503.0106, BTS, L500.4050, L100.0100, L501.9520 #### [facility] [address] [place], [address] CO2 [Moles/Vol] 22.5 mmol/L Normal 21.0-32.0 [facility] Comment on above: Performed By: #### L 503.0106, BTS, L500.4050, L100.0100, L501.9520 #### [facility] [address] [place], [address] Creatinine [Mass/Vol] 0.69 mg/dL Low 0.70-1.20 [facility] Comment on above: Performed By: #### L 503.0106, BTS, L500.4050, L100.0100, L501.9520 #### [facility] [address] [place], [address] ECRCL 49.36 ml/min Low 50-250 [facility] Comment on above: Performed By: #### L 503.0106, BTS, L500.4050, L100.0100, L501.9520 #### [facility] [address] [place], [address] GAP 10 Normal 5-15 [facility] Comment on above: Performed By: #### L 503.0106, BTS, L500.4050, L100.0100, L501.9520 #### [facility] [address] [place], [address] GFR/1.73 sq M.predicted among non-blacks MDRD (S/P/Bld) [Vol rate/Area] 86 mL/min/{1.73_m2} Normal >60 [facility] Comment on above: Result Comment: mL/m in/1.73m2 CKD-EPI Creatinine Equation (2020) Performed By: #### L 503.0106, BTS, L500.4050, L100.0100, L501.9520 #### [facility] [address] [place], [address] Glucose [Mass/Vol] 167 mg/dL High 70-99 [facility] Comment on above: Performed By: #### L 503.0106, BTS, L500.4050, L100.0100, L501.9520 #### [facility] [address] [place], [address] Potassium [Moles/Vol] 3.8 mmol/L Normal 3.3-5.1 [facility] Comment on above: Performed By: #### L 503.0106, BTS, L500.4050, L100.0100, L501.9520 #### [facility] [address] [place], [address] Sodium [Moles/Vol] 135 mmol/L Normal 133-145 [facility] Comment on above: Performed By: #### L 503.0106, BTS, L500.4050, L100.0100, L501.9520 #### [facility] [address] [place], [address] Urea nitrogen [Mass/Vol] 11 mg/dL Normal 4-19 [facility] Comment on above: Performed By: #### L 503.0106, BTS, L500.4050, L100.0100, L501.9520 #### [facility] [address] [place], [address] CBC-Complete Blood Cnt No Di ffon 01-21-2025 Erythrocyte distribution width (RBC) [Ratio] 13.1 % Normal 11.6-14.6 [facility] Comment on above: Performed By: #### L 503.0106, BTS, L500.4050, L100.0100, L501.9520 #### [facility] [address] [place], [address] Hematocrit (Bld) [Volume fraction] 28.9 % Low 37-47 [facility] Comment on above: Performed By: #### L 503.0106, BTS, L500.4050, L100.0100, L501.9520 #### [facility] [address] [place], [address] Hemoglobin (Bld) [Mass/Vol] 9.7 g/dL Low 12.0-15.0 [facility] Comment on above: Performed By: #### L 503.0106, BTS, L500.4050, L100.0100, L501.9520 #### [facility] [address] [place], [address] MCH (RBC) [Entitic mass] 27.6 pg Normal 27.0-32.0 [facility] Comment on above: Performed By: #### L 503.0106, BTS, L500.4050, L100.0100, L501.9520 #### [facility] [address] [place], [address] MCHC (RBC) [Mass/Vol] 33.6 g/dL Normal 32-36 [facility] Comment on above: Performed By: #### L 503.0106, BTS, L500.4050, L100.0100, L501.9520 #### [facility] [address] [place], [address] MCV (RBC) [Entitic vol] 82.3 fL Normal 81-99 [facility] Comment on above: Performed By: #### L 503.0106, BTS, L500.4050, L100.0100, L501.9520 #### [facility] [address] [place], [address] Platelet mean volume (Bld) [Entitic vol] 8.8 fL Normal 6.2-12.0 [facility] Comment on above: Performed By: #### L 503.0106, BTS, L500.4050, L100.0100, L501.9520 #### [facility] [address] [place], [address] Platelets (Bld) [#/Vol] 209 10*3/uL Normal 150-450 [facility] Comment on above: Performed By: #### L 503.0106, BTS, L500.4050, L100.0100, L501.9520 #### [facility] [address] [place], [address] RBC (Bld) [#/Vol] 3.51 10*6/uL Low 4.2-5.4 [facility] Comment on above: Performed By: #### L 503.0106, BTS, L500.4050, L100.0100, L501.9520 #### [facility] [address] [place], [address] RDW SD 39.8 fl Normal 35.1-43.9 [facility] Comment on above: Performed By: #### L 503.0106, BTS, L500.4050, L100.0100, L501.9520 #### [facility] [address] [place], [address] WBC (Bld) [#/Vol] 12.1 10*3/uL High 4.4-11.0 [facility] Comment on above: Performed By: #### L 503.0106, BTS, L500.4050, L100.0100, L501.9520 #### [facility] [address] [place], [address] Absolute lymphocyte countOrd ered By: Stephan Beard on 01-20-2025 Lymphocytes Auto (Unsp spec) [#/Vol] 0.94 10*3/uL 0.83-4.51 [facility] Absolute neutrophil countOrd ered By: Stephan Beard on 01-20-2025 Neutrophils (Bld) [#/Vol] 6.9 10*3/uL 2.0-7.7 [facility] Automated lymphocyte count a s percentage of total leukocytesOrdered By: Stephan Beard on 01-20-2025 Lymphocytes/100 WBC Auto (Unsp spec) 11.1 % Low 19-41 [facility] Basophil percentageOrdered B y: Stephan Beard on 01-20-2025 Basophils/100 WBC (Bld) 0.1 % 0-1 [facility] Bilirubin Test strip Ql (U)O rdered By: Stephan Beard on 01-20-2025 Bilirubin Ql (U) Negative Negative [facility] Bilirubin, totalOrdered By: Stephan Beard on 01-20-2025 Bilirubin [Mass/Vol] 0.63 mg/dL 0.00-1.30 [facility] CBC W/Diff, Automatedon 01-11 Absolute Lymph 0.94 X10 3/uL Normal 0.83-4.51 [facility] Comment on above: Performed By: #### L 503.0106, BTS, L500.4050, L100.0100, L501.9520 #### [facility] [address] [place], [address] Absolute Neut 6.9 X10 3/uL Normal 2.0-7.7 [facility] Comment on above: Performed By: #### L 503.0106, BTS, L500.4050, L100.0100, L501.9520 #### [facility] [address] [place], [address] Basophils/100 WBC (Bld) 0.1 % Normal 0-1 [facility] Comment on above: Performed By: #### L 503.0106, BTS, L500.4050, L100.0100, L501.9520 #### [facility] [address] [place], [address] Eosinophils/100 WBC (Bld) 0.1 % Normal 0-5 [facility] Comment on above: Performed By: #### L 503.0106, BTS, L500.4050, L100.0100, L501.9520 #### [facility] [address] [place], [address] Erythrocyte distribution width (RBC) [Ratio] 13.1 % Normal 11.6-14.6 [facility] Comment on above: Performed By: #### L 503.0106, BTS, L500.4050, L100.0100, L501.9520 #### [facility] [address] [place], [address] Hematocrit (Bld) [Volume fraction] 34.5 % Low 37-47 [facility] Comment on above: Performed By: #### L 503.0106, BTS, L500.4050, L100.0100, L501.9520 #### [facility] [address] [place], [address] Hemoglobin (Bld) [Mass/Vol] 11.1 g/dL Low 12.0-15.0 [facility] Comment on above: Performed By: #### L 503.0106, BTS, L500.4050, L100.0100, L501.9520 #### [facility] [address] [place], [address] IG% 0.400 Normal 0.0-0.9 [facility] Comment on above: Result Comment: IG% - Immature Granulocytes (promyelocytes, myelocytes and metamyelocytes) > 1% indicates that a LEFT SHIFT is Present. Performed By: #### L 503.0106, BTS, L500.4050, L100.0100, L501.9520 #### [facility] [address] [place], [address] Lymphocytes/100 WBC (Bld) 11.1 % Low 19-41 [facility] Comment on above: Performed By: #### L 503.0106, BTS, L500.4050, L100.0100, L501.9520 #### [facility] [address] [place], [address] MCH (RBC) [Entitic mass] 27.3 pg Normal 27.0-32.0 [facility] Comment on above: Performed By: #### L 503.0106, BTS, L500.4050, L100.0100, L501.9520 #### [facility] [address] [place], [address] MCHC (RBC) [Mass/Vol] 32.2 g/dL Normal 32-36 [facility] Comment on above: Performed By: #### L 503.0106, BTS, L500.4050, L100.0100, L501.9520 #### [facility] [address] [place], [address] MCV (RBC) [Entitic vol] 84.8 fL Normal 81-99 [facility] Comment on above: Performed By: #### L 503.0106, BTS, L500.4050, L100.0100, L501.9520 #### [facility] [address] [place], [address] Monocytes/100 WBC (Bld) 7.2 % Normal 0-10 [facility] Comment on above: Performed By: #### L 503.0106, BTS, L500.4050, L100.0100, L501.9520 #### [facility] [address] [place], [address] Neutrophils/100 WBC (Bld) 81.1 % High 47-70 [facility] Comment on above: Performed By: #### L 503.0106, BTS, L500.4050, L100.0100, L501.9520 #### [facility] [address] [place], [address] Nucleated RBC (Bld) [#/Vol] 0 10*3/uL Normal 0-5 [facility] Comment on above: Performed By: #### L 503.0106, BTS, L500.4050, L100.0100, L501.9520 #### [facility] [address] [place], [address] Platelet mean volume (Bld) [Entitic vol] 8.8 fL Normal 6.2-12.0 [facility] Comment on above: Performed By: #### L 503.0106, BTS, L500.4050, L100.0100, L501.9520 #### [facility] [address] [place], [address] Platelets (Bld) [#/Vol] 241 10*3/uL Normal 150-450 [facility] Comment on above: Performed By: #### L 503.0106, BTS, L500.4050, L100.0100, L501.9520 #### [facility] [address] [place], [address] RBC (Bld) [#/Vol] 4.07 10*6/uL Low 4.2-5.4 [facility] Comment on above: Performed By: #### L 503.0106, BTS, L500.4050, L100.0100, L501.9520 #### [facility] [address] [place], [address] RDW SD 40.1 fl Normal 35.1-43.9 [facility] Comment on above: Performed By: #### L 503.0106, BTS, L500.4050, L100.0100, L501.9520 #### [facility] [address] [place], [address] WBC (Bld) [#/Vol] 8.5 10*3/uL Normal 4.4-11.0 [facility] Comment on above: Performed By: #### L 503.0106, BTS, L500.4050, L100.0100, L501.9520 #### [facility] [address] [place], [address] Comprehensive Metabolic [facility] Ed ilon 01-20-2025 Albumin [Mass/Vol] 3.6 g/dL Normal 3.4-4.8 [facility] Comment on above: Performed By: #### L 503.0106, BTS, L500.4050, L100.0100, L501.9520 #### [facility] [address] [place], [address] Albumin/Globulin [Mass ratio] 1.4 {ratio} Normal 0.9-2.4 [facility] Comment on above: Performed By: #### L 503.0106, BTS, L500.4050, L100.0100, L501.9520 #### [facility] [address] [place], [address] ALK PHOS 51 U/L Normal 35-104 [facility] Comment on above: Performed By: #### L 503.0106, BTS, L500.4050, L100.0100, L501.9520 #### [facility] [address] [place], [address] ALT [Catalytic activity/Vol] U/L Normal <=34 [facility] Comment on above: Performed By: #### L 503.0106, BTS, L500.4050, L100.0100, L501.9520 #### [facility] [address] [place], [address] AST [Catalytic activity/Vol] 19 U/L Normal <=31 [facility] Comment on above: Performed By: #### L 503.0106, BTS, L500.4050, L100.0100, L501.9520 #### [facility] [address] [place], [address] Bilirubin [Mass/Vol] 0.63 mg/dL Normal 0.00-1.30 [facility] Comment on above: Performed By: #### L 503.0106, BTS, L500.4050, L100.0100, L501.9520 #### [facility] [address] [place], [address] BUN/CRE 19.9 RATIO Normal 10-20 [facility] Comment on above: Performed By: #### L 503.0106, BTS, L500.4050, L100.0100, L501.9520 #### [facility] [address] [place], [address] Calcium [Mass/Vol] 8.2 mg/dL Normal 7.6-11.0 [facility] Comment on above: Performed By: #### L 503.0106, BTS, L500.4050, L100.0100, L501.9520 #### [facility] [address] [place], [address] Chloride [Moles/Vol] 100 mmol/L Normal 98-108 [facility] Comment on above: Performed By: #### L 503.0106, BTS, L500.4050, L100.0100, L501.9520 #### [facility] [address] [place], [address] CO2 [Moles/Vol] 21.8 mmol/L Normal 21.0-32.0 [facility] Comment on above: Performed By: #### L 503.0106, BTS, L500.4050, L100.0100, L501.9520 #### [facility] [address] [place], [address] Creatinine [Mass/Vol] 0.65 mg/dL Low 0.70-1.20 [facility] Comment on above: Performed By: #### L 503.0106, BTS, L500.4050, L100.0100, L501.9520 #### [facility] [address] [place], [address] ECRCL 50.52 ml/min Normal 50-250 [facility] Comment on above: Performed By: #### L 503.0106, BTS, L500.4050, L100.0100, L501.9520 #### [facility] [address] [place], [address] GAP 12 Normal 5-15 [facility] Comment on above: Performed By: #### L 503.0106, BTS, L500.4050, L100.0100, L501.9520 #### [facility] [address] [place], [address] GFR/1.73 sq M.predicted among non-blacks MDRD (S/P/Bld) [Vol rate/Area] 87 mL/min/{1.73_m2} Normal >60 [facility] Comment on above: Result Comment: mL/m in/1.73m2 CKD-EPI Creatinine Equation (2020) Performed By: #### L 503.0106, BTS, L500.4050, L100.0100, L501.9520 #### [facility] [address] [place], [address] Globulin (S) [Mass/Vol] 2.7 g/dL Normal 2.2-4.2 [facility] Comment on above: Performed By: #### L 503.0106, BTS, L500.4050, L100.0100, L501.9520 #### [facility] [address] [place], [address] Glucose [Mass/Vol] 98 mg/dL Normal 70-99 [facility] Comment on above: Performed By: #### L 503.0106, BTS, L500.4050, L100.0100, L501.9520 #### [facility] [address] [place], [address] Potassium [Moles/Vol] 3.5 mmol/L Normal 3.3-5.1 [facility] Comment on above: Performed By: #### L 503.0106, BTS, L500.4050, L100.0100, L501.9520 #### [facility] [address] [place], [address] Sodium [Moles/Vol] 134 mmol/L Normal 133-145 [facility] Comment on above: Performed By: #### L 503.0106, BTS, L500.4050, L100.0100, L501.9520 #### [facility] [address] [place], [address] T PROT 6.3 g/dL Normal 5.9-8.4 [facility] Comment on above: Performed By: #### L 503.0106, BTS, L500.4050, L100.0100, L501.9520 #### [facility] [address] [place], [address] Urea nitrogen [Mass/Vol] 13 mg/dL Normal 4-19 [facility] Comment on above: Performed By: #### L 503.0106, BTS, L500.4050, L100.0100, L501.9520 #### [facility] [address] [place], [address] Consultation - Orthopedicson 01-20-2025 Consultation - Orthopedics [facility] Medical Records Department [address] [place] [address] Consultation - Orthopedics 01/20/25 1415 MR#: [id number] Acct: [id number] Name: MONISHA COHN Rep #: [id number] : 1940 84 From: Braulio Tijerina MD PCP: Tressa Rosales Status:ADM IN Location: MS3 [id number] HPI Consult Data Date of Consult: 01/20/25 [...] Patient notes that [facility] and ambulates with a walker or uses a wheelchair. She does not walk independently. She was reported to have fallen yesterday and sustained an injury to her right hand and hip. She was seen at an outside hospital and requested transfer to [place] as they did not have orthopedics. She [...] denies any current treatment or active malignancies. REPLACED BY [facility] Medical History Nocturia Urge incontinence Overactive bladder Former tobacco use Depression Hypertension Fall [facility] (closed head injury) Presence of stent in coronary artery ( 12/22/21) Atherosclerotic heart disease of [place] coronary artery without angina pectoris ST elevation [...] Tobacco: How (more content not included)... Normal [facility] Decalcification bone/plaqueo n 01-20-2025 Decalcification bone/plaque ---- Patient Age/Sex Location Account Attending Physician ---- MONISHA COHN 84/F MS3 [id number] Dr. Davian Kelly MD ---- Specimen: [id number] Received: 01/23/25 Status: CAROL Mccauley Num: [id number] Spec Type: TOTAL HIP Subm Dr: Dr. [...] medullary bone. No definitive lesions are identified. Television Production Technician sections are submitted in 2 cassettes, following decalcification, as follows: A1: Articular cartilage, including area of detached cartilageA2: Congested medullary bone, area of detached cartilage IA 01/23/2025 [facility]:[id number] ---- Patient Age/Sex Location Account Attending Physician ---- MONISHA COHN 84/F MS3 [id number] Dr. Davian Kelly MD ---- Signed (signature on file) Dr. Debbie Corea MD 01/27/25 1357 ---- Normal [facility] Comment on above: Performed By: #### L 503.0106, BTS, L500.4050, L100.0100, L501.9520 #### [facility] [address] [place], [address] ED NOTEon 01-20-2025 ED NOTE HNO ID: [id number] Author: FLORIDALMA SZYMANSKI, RN Service: Emergency Medicine Author Type: Registered Nurse Type: ED Notes Filed: 01/20/2025 00:07 Note Text: [facility] here, chart and report provided along with disk of films Normal [facility] Eosinophil percentageOrdered By: Stephan Beard on 01-20-2025 Eosinophils/100 WBC (Bld) 0.1 % 0-5 [facility] Folate [Mass/volume] in Seru m or PlasmaOrdered By: Stephan Beard on 01-20-2025 Folate [Mass/Vol] 6.23 ng/mL 4.60-34.80 [facility] Comment on above: Hemolysis, Results w ill be affected, Requires Recollection. Folates,Serum (Folic Acid)on 01-20-2025 FOLATES,SERUM 6.23 ng/mL Normal 4.60-34.80 [facility] Comment on above: Result Comment: Hemo lysis, Results will be affected, Requires Recollection. Performed By: #### L 503.0106, BTS, L500.4050, L100.0100, L501.9520 #### [facility] [address] [facility] [place], [address] H AND P Exam - Hospitaliston 01-20-2025 H&P Exam - Hospitalist [facility] Medical Records Department [address] [place] [address] H P Exam - Hospitalist 01/20/25 0112 MR#: [id number] Acct: [id number] Name: MONISHA COHN Rep #: [id number] : 1940 84 From: Stephan Martel DO PCP: Tressa Rosales Status:ADM IN Location: [facility] CE[facility]-6 [facility] - General General Date of Admission: 01/20/25 Date of Service: 01/20/25 Chief Complaint: Fall with Right Hip Fracture. HPI Narrative MONISHA COHN, is a 84 F with a past medical history of essential hypertension; currently not on treatment, hyperlipidemia; on atorvastatin, former tobacco abuse; with subsequent COPD and pulmonary hypertension, CAD; with RCA stent at [facility] in [place] (2009) and subsequent inferior wall ST elevation [place] s/p RCA stent with cardiogenic shock and [...] recently diagnosed GENA-19 who was transferred from [facility] after she was diagnosed with [...] LOC with her fall. Dr. North of [facility] spoke to Dr. Tijerina of the orthopedic service here who recommended admission to the hospitalist service with formal consultation pending in the a.m. for ORIF. She was then admitted to the general medical floor for ongoing care for stay that is expected to extend beyond 2 midnights. REPLACED BY [facility] Medical History Nocturia Urge incontinence Overactive bladder Former tobacco use Depression Hypertension Fall [facility] (closed head injury) Presence of stent in coronary artery ( 12/22/21) Atherosclerotic heart disease of [place] coronary artery without angina pectoris ST elevation [...] PO .COMPLEX (more content not included)... Normal [facility] Hip Min 2 Views (Portable)on 01-20-2025 Hip Min 2 Views (Portable) [facility] Imaging Services [address] [place] [address] Hip Min 2 Views (Portable) MR#: [id number] Acct: [id number] Name: MONISHA COHN Rep #: [id number] : 1940 F 84 From: Law brewster MD PCP: Tressa Rosales Status: ADM IN Study: Hip Min 2 Views (Portable) Date of Exam: 01/20 Exam# [id number] Ordering Dr: Braulio Tijerina MD PROCEDURE: HIP [...] hip chronic and surgical changes. [facility] CC: Dr. Braulio Tijerina MD; Tressa Rosales [employer] Supplies Salesperson: Signed Normal [facility] Hip Min 2 Views (Portable) [facility] Imaging Services [address] [place] [address] Hip Min 2 Views (Portable) MR#: [id number] Acct: [id number] Name: MONISHA COHN Rep #: [id number] : 1940 F 84 From: Law brewster MD PCP: Tressa Rosales Status: ADM IN Study: Hip Min 2 Views (Portable) Date of Exam: 01/20 Exam# [id number] Ordering Dr: Braulio Tijerina MD PROCEDURE: HIP [...] CC: Dr. Braulio Tijerina MD; Tressa Rosales [employer] Supp[employer] Salesperson: Signed Normal [facility] Immature granulocytes/100 WB C Auto (Bld)Ordered By: Stephan Beard on 01-20-2025 Immature granulocytes/100 WBC (Bld) 0.400 % 0.0-0.9 [facility] Comment on above: IG% - Immature Granu locytes (promyelocytes, myelocytes and metamyelocytes) > 1% indicates that a LEFT SHIFT is Present. Ketones Test strip Ql (U)Ord ered By: Stephan Beard on 01-20-2025 Ketones Ql (U) 15 mg/dl High Negative [facility] L501.4021on 01-20-2025 Trop T High Sen 27 ng/L High <=14 [facility] Comment on above: Performed By: #### L 503.0106, BTS, L500.4050, L100.0100, L501.9520 #### [facility] [address] [facility] [place], [address] Laboratory - Chemistry and C hemistry - challengeOrdered By: Stephan Beard on 01-20-2025 AST [Catalytic activity/Vol] 19 U/L <32 [facility] MR/POSTOP.ANEon 01-20-2025 MR/POSTOP.ANE [facility] Medical Records Department [address] [place] [address] Anesthesia Postop Eval I 01/20/25 1715 MR#: [id number] Acct: [id number] Name: MONISHA COHN Rep #: [id number] : 1940 84 From: Brennen Rojas CRNA PCP: Tressa Rosales Status:ADM IN Y Race: C Location: WA3 [id number] Anesthesia: Postop Eval I Current Vital Signs [...] [place] JULIAN Cosigner Signature: CC: Signed Normal [facility] MR/[id number] 01-20-2025 [facility] Medical Records Department [address] [place] [address] Anesthesia Postop Eval II 01/20/251705 MR#: [id number] Acct: [id number] Name: MONISHA COHN Rep #: [id number] : 1940 84 From: Jareth Shepard MD PCP: Tressa Rosales Status:ADM IN Y Race: C Location: [facility] AS267-3 Anesthesia Postop Eval I Sum Anesthesia Postop [...] MD Cosigner Signature: Date CC: Signed Normal [facility] Microscopic analysis of urin e for red blood cells (RBC)Ordered By: Stephan Beard on 01-20-2025 Microscopic analysis of urine for red blood cells (RBC) 0 SEEN /hpf 0-5 [facility] Monocyte percentageOrdered B y: Stephan Beard on 01-20-2025 Monocytes/100 WBC (Bld) 7.2 % 0-10 [facility] Mucus LM Ql (Urine sed)Order ed By: Stephan Beard on 01-20-2025 Mucus Ql (Urine sed) 0 SEEN /hpf [facility] Neutrophil percentageOrdered By: Stephan Beard on 01-20-2025 Neutrophils/100 WBC (Bld) 81.1 % High 47-70 [facility] Nitrite Test strip Ql (U)Ord ered By: Stephan Beard on 01-20-2025 Nitrite Ql (U) Negative Negative [facility] Nucleated red blood cell per centageOrdered By: Stephan Beard on 01-20-2025 Nucleated RBC/100 WBC (Bld) [Ratio] 0 % 0-5 [facility] Operative Reporton Operative Report [facility] Medical Records Department [address] [place] [address] Operative Report 01/20/25 1545 MR#: [id number] Acct: [id number] Name: MONISHA COHN Rep #: [id number] : 1940 84 From: Braulio Tijerina MD PCP: Tressa Rosales Status:ADM IN [facility] (Standard) Operative Information Date of Procedure: 01/20/25 Pre-Operative Diagnosis: Right hip subcapital femoral neck fracture Post-Operative Diagnosis: Right hip subcapital femoral neck fracture Surgery/Procedure Performed: Right hip endoprosthesis dramatic teacher: Yes Hand Suture Winder: Edyta Bhatti Tasks completed by assistant shift supervisor: Opening, Closing, Implanting device and Retracting Additional corporate legal assistant?: No Type of Anesthesia: General RN [...] the emmanuel (more content not included)... Normal [facility] Phosphoruson 01-20-2025 Phosphate [Mass/Vol] 2.4 mg/dL Low 2.7-4.5 [facility] Comment on above: Performed By: #### L 501.2300 #### [facility] [address] [place], [address] Protein Test strip Ql (U)Ord ered By: Stephan Beard on 01-20-2025 Protein Ql (U) 15 mg/dl High Negative [facility] Serum globulin measurementOr dered By: Stephan dela cruz 01-20-2025 Globulin (S) [Mass/Vol] 2.7 g/dL 2.2-4.2 [facility] [facility] Serum or plasma alanine swenson otransferase (ALT) measurementOrdered By: Stephan Beard on 01-20-2025 ALT [Catalytic activity/Vol] U/L <35 [facility] Serum or plasma albumin taylor urement (mass/volume)Ordered By: Stephan Beard on 01-20-2025 Albumin [Mass/Vol] 3.6 g/dL 3.4-4.8 [facility] Serum or plasma albumin/glob ulin mass ratioOrdered By: Stephan Beard on 01-20-2025 Albumin/Globulin [Mass ratio] 1.4 {ratio} 0.9-2.4 [facility] Serum or plasma alkaline nhi sphatase measurementOrdered By: Stephan Beard on 01-20-2025 ALP [Catalytic activity/Vol] 51 U/L 35-104 [facility] Squamous epithelial cells de tection in urine sediment by light microscopyOrdered By: Stephan Beard on 01-20-2025 Epithelial cells.squamous LM Ql (Urine sed) 0 SEEN /hpf -10 [facility] TSH DL <= 0.005 mIU/L QnOrde red By: Stephan Beard on 01-20-2025 TSH Qn 1.900 uIU/mL 0.300-4.200 [facility] Thyroid Stim Hormone (TSH)on 01-20-2025 TSH 1.900 uIU/mL Normal 0.300-4.200 [facility] Comment on above: Performed By: #### L 503.0106, BTS, L500.4050, L100.0100, L501.9520 #### [facility] [address] [place], [address] Total proteinOrdered By: Melchor Beard on 01-20-2025 Protein [Mass/Vol] 6.3 g/dL 5.9-8.4 [facility] Troponin T HS 2 HRon 025 Trop T High Sen 29 ng/L High <=14 [facility] Comment on above: Performed By: #### L 503.0106, BTS, L500.4050, L100.0100, L501.9520 #### [facility] [address] [place], [address] Troponin T HS 4 HRon 025 Trop T High Sen 28 ng/L High <=14 [facility] Comment on above: Performed By: #### L 503.0106, BTS, L500.4050, L100.0100, L501.9520 #### [facility] [address] [place], [address] Troponin T.cardiac [Mass/vol ume] in Serum or Plasma by High sensitivity methodOrdered By: Stephan Beard on 01-20-2025 Troponin T.cardiac High sensitivity method [Mass/Vol] 28 ng/L High <14 [facility] Troponin T.cardiac High sensitivity method [Mass/Vol] 29 ng/L High <14 [facility] Troponin T.cardiac High sensitivity method [Mass/Vol] 27 ng/L High <14 [facility] Type AND Screenon 01-20-2025 ABO and Rh group Nom (Bld) Blood group B Rh(D) positive Normal [facility] Comment on above: Order Comment: S Performed By: #### L 503.0106, BTS, L500.4050, L100.0100, L501.9520 #### [facility] [address] [place], [address] Urinalysis, Completeon 01-20 BACTERIA 0 SEEN Normal None Seen [facility] Comment on above: Order Comment: CLEAN CATCH Performed By: #### L 503.0106, BTS, L500.4050, L100.0100, L501.9520 #### [facility] [address] [place], [address] EPI,SQUAMOUS 0 SEEN Normal -10 [facility] Comment on above: Order Comment: CLEAN CATCH Performed By: #### L 503.0106, BTS, L500.4050, L100.0100, L501.9520 #### [facility] [address] [place], [address] Mucus Ql (Urine sed) 0 SEEN Normal [facility] Comment on above: Order Comment: CLEAN CATCH Performed By: #### L 503.0106, BTS, L500.4050, L100.0100, L501.9520 #### [facility] [address] [place], [address] RBC 0 SEEN Normal 0-5 [facility] Comment on above: Order Comment: CLEAN CATCH Performed By: #### L 503.0106, BTS, L500.4050, L100.0100, L501.9520 #### [facility] [address] [place], [address] WBC 0 SEEN Normal 0-5 [facility] Comment on above: Order Comment: CLEAN CATCH Performed By: #### L 503.0106, BTS, L500.4050, L100.0100, L501.9520 #### [facility] [address] [place], [address] Urine clarityOrdered By: Melchor Beard on 01-20-2025 Clarity (U) Sl. Cloudy Clear [facility] Urine color determinationOrd ered By: Stephan Beard on 01-20-2025 Color (U) Yellow Yellow [facility] Urine glucose detectionOrder ed By: Stephan Beard on 01-20-2025 Glucose Ql (U) Normal mg/dl Normal [facility] Urine leukocyte esterase det ection by dipstickOrdered By: Stephan Beard on 01-20-2025 Leukocyte esterase Test strip Ql (U) Negative Negative [facility] Urine pHOrdered By: Stephan hagen on 01-20-2025 pH (U) 6.5 [pH] 5.0 - 8.0 [facility] Urine sediment bacteria coun t by microscopy (number/high power field)Ordered By: Stephan Beard on 01-20-2025 Bacteria LM.HPF (Urine sed) [#/Area] 0 /[HPF] None Seen [facility] Urine specific gravity measu rementOrdered By: Stephan Beard on 01-20-2025 Specific gravity (U) [Rel density] 1.010 1.002-1.030 [facility] Urine urobilinogen measureme ntOrdered By: Stephan Beard on 01-20-2025 Urobilinogen Ql (U) Normal mg/dl Normal [facility] Vitamin B12on 01-20-2025 Cobalamin (Vitamin B12) [Mass/Vol] 1234 pg/mL High 180-914 [facility] Comment on above: Performed By: #### L 503.0106, BTS, L500.4050, L100.0100, L501.9520 #### [facility] [address] [place], [address] Vitamin B12 ser/plasOrdered By: Stephan Beard on 01-20-2025 Cobalamin (Vitamin B12) [Mass/Vol] 1234 pg/mL High 180-914 [facility] White blood cell countOrdere d By: Stephan Beard on 01-20-2025 White blood cell count 0 SEEN /hpf 0-5 [facility] ALLIED HEALTHon 01-19-2025 ALLIED HEALTH HNO ID: [id number] Author: JANNIE MARTINES RT(R) Service: Radiology Author Type: Last Model Department Supervisor Type: Allied Health Filed: 01/19/2025 21:08 Note [...] PATIENT PRESENTS WITH AN IMPLANTABLE OR ATTACHED TRADE ANALYST: No RADIOLOGY DEPARTMENT: CT; Exam(s) Completed: Brain and Spine . Anesthesia: No PERIPHERAL IV DATA: Not applicable SIGNED BY: Jannie Martines RT(R) January 19, 2025 9:08 PM Normal [facility] Basic metabolic 2000 panelon 01-19-2025 Anion gap [Moles/Vol] 11 mmol/L Normal 8-15 [facility] Comment on above: Order Comment: Speci men Type: BLOOD SPECIMEN Ordering Facility: [facility] Address: [address] [place] [address] Performed By: #### 2 4321-2 #### [facility] CLIA [id number] [address] [place] [address] [place] Calcium [Mass/Vol] 8.7 mg/dL Normal 8.5-10.2 [facility] Comment on above: Order Comment: Speci men Type: BLOOD SPECIMEN Ordering Facility: [facility] Address: [address] [place] [address] Performed By: #### 2 4321-2 #### [facility] CLIA [id number] [address] [place] [address] [place] Chloride [Moles/Vol] 100 mmol/L Normal 98-107 [facility] Comment on above: Order Comment: Speci men Type: BLOOD SPECIMEN Ordering Facility: [facility] Address: [address] [place] [address] Performed By: #### 2 4321-2 #### [facility] CLIA [id number] [address] [place] [address] [place] CO2 [Moles/Vol] 23 mmol/L Normal 22-30 [facility] Comment on above: Order Comment: Speci men Type: BLOOD SPECIMEN Ordering Facility: [facility] Address: [address] [place] [address] Performed By: #### 2 4321-2 #### [facility] CLIA [id number] [address] [place] [address] [place] Creatinine [Mass/Vol] 0.76 mg/dL Normal 0.58-0.96 [facility] Comment on above: Order Comment: Liza granados Type: BLOOD SPECIMEN Ordering Facility: [facility] Address: [address] [place] [address] Performed By: #### 2 4321-2 #### [facility] CLIA [id number] [address] [place] [address] [place] eGFRcr SerPlBld CKD-EPI 2020 78 mL/min/1.73m??? Normal >=60 [facility] Comment on above: Order Comment: Liza granados Type: BLOOD SPECIMEN Ordering Facility: [facility] Address: [address] [place] [address] Result Comment: Rachael mated Glomerular Filtration Rate [...] GFR. Performed By: #### 2 4321-2 #### [facility] CLIA [id number] [address] [place] [address] [place] Glucose [Mass/Vol] 100 mg/dL High 74-99 [facility] Comment on above: Order Comment: Liza granados Type: BLOOD SPECIMEN Ordering Facility: [facility] Address: [address] [place] [address] Result Comment: The [place] [employer] (ADA) provides guidance for cutoff [...] Standards of Medical Care in Diabetes 2016, [place] [employer]. Diabetes Care. 2016.39(Suppl 1). Performed By: #### 2 4321-2 #### [facility] CLIA [id number] [address] [place] [address] [place] Potassium [Moles/Vol] 3.8 mmol/L Normal 3.7-5.1 [facility] Comment on above: Order Comment: Speci men Type: BLOOD SPECIMEN Ordering Facility: [facility] Address: [address] [place] [address] Performed By: #### 2 4321-2 #### [facility] CLIA [id number] [address] [place] [address] [place] Sodium [Moles/Vol] 134 mmol/L Low 136-144 [facility] Comment on above: Order Comment: Speci men Type: BLOOD SPECIMEN Ordering Facility: [facility] Address: [address] [place] [address] Performed By: #### 2 4321-2 #### [facility] CLIA [id number] [address] [place] [address] [place] Urea nitrogen [Mass/Vol] 14 mg/dL Normal 7-21 [facility] Comment on above: Order Comment: Speci men Type: BLOOD SPECIMEN Ordering Facility: [facility] Address: [address] [place] [address] Performed By: #### 2 4321-2 #### [facility] CLIA [id number] [address] [place] CBC W Auto Differential pane l (Bld)on 01-19-2025 Basophils (Bld) [#/Vol] 10*3/uL Normal <0.11 [facility] Comment on above: Order Comment: Speci men Type: BLOOD SPECIMEN Ordering Facility: [facility] Address: [address] [place] [address] Performed By: #### 5 7021-8 #### [facility] CLIA [id number] [address] [place] [address] [facility] [place] Basophils/100 WBC (Bld) 0.3 % Normal [facility] Comment on above: Order Comment: Speci men Type: BLOOD SPECIMEN Ordering Facility: [facility] Address: [address] [place] [address] Performed By: #### 5 7021-8 #### [facility] CLIA [id number] [address] [place] [address] [place] Differential cell count method Nom (Bld) Auto Normal [facility] Comment on above: Order Comment: Speci men Type: BLOOD SPECIMEN Ordering Facility: [facility] Address: [address] [place] [address] Performed By: #### 5 7021-8 #### [facility] CLIA [id number] [address] [place] [address] [place] Eosinophils (Bld) [#/Vol] 10*3/uL Normal <0.46 [facility] Comment on above: Order Comment: Speci men Type: BLOOD SPECIMEN Ordering Facility: [facility] Address: [address] [place] [address] Performed By: #### 5 7021-8 #### [facility] CLIA [id number] [address] [place] [address] [place] Eosinophils/100 WBC (Bld) 0.3 % Normal [facility] Comment on above: Order Comment: Speci men Type: BLOOD SPECIMEN Ordering Facility: [facility] Address: [address] [place] [address] Performed By: #### 5 7021-8 #### [facility] CLIA [id number] [address] [place] [address] [place] Erythrocyte distribution width (RBC) [Ratio] 13.1 % Normal 11.5-15.0 [facility] Comment on above: Order Comment: Speci men Type: BLOOD SPECIMEN Ordering Facility: [facility] Address: [address] [place] [address] Performed By: #### 5 7021-8 #### [facility] CLIA [id number] [address] [place] [address] [place] Hematocrit (Bld) [Volume fraction] 35.9 % Low 36.0-46.0 [facility] Comment on above: Order Comment: Speci men Type: BLOOD SPECIMEN Ordering Facility: [facility] Address: [address] [place] [address] Performed By: #### 5 7021-8 #### [facility] CLIA [id number] [address] [place] [address] [place] Hemoglobin (Bld) [Mass/Vol] 11.3 g/dL Low 11.5-15.5 [facility] Comment on above: Order Comment: Speci men Type: BLOOD SPECIMEN Ordering Facility: [facility] Address: [address] [place] [address] Performed By: #### 5 7021-8 #### [facility] CLIA [id number] [address] [place] [address] [place] Immature granulocytes (Bld) [#/Vol] 10*3/uL Normal <0.10 [facility] Comment on above: Order Comment: Speci men Type: BLOOD SPECIMEN Ordering Facility: [facility] Address: [address] [place] [address] Performed By: #### 5 7021-8 #### [facility] CLIA [id number] [address] [place] [address] [place] Immature granulocytes/100 WBC (Bld) 0.6 % Normal [facility] Comment on above: Order Comment: Speci men Type: BLOOD SPECIMEN Ordering Facility: [facility] Address: [address] [place] [address] Performed By: #### 5 7021-8 #### [facility] CLIA [id number] [address] [place] [address] [place] Lymphocytes (Bld) [#/Vol] 1.32 10*3/uL Normal 1.00-4.00 [facility] Comment on above: Order Comment: Speci men Type: BLOOD SPECIMEN Ordering Facility: [facility] Address: [address] [place] [address] Performed By: #### 5 7021-8 #### [facility] CLIA [id number] [address] [place] [address] [facility] Lymphocytes/100 WBC (Bld) 40.6 % Normal [facility] Comment on above: Order Comment: Speci men Type: BLOOD SPECIMEN Ordering Facility: [facility] Address: [address] [place] [address] Performed By: #### 5 7021-8 #### [facility] CLIA [id number] [address] [place], [place] [address] [place] [address] MCH (RBC) [Entitic mass] 27.8 pg Normal 26.0-34.0 [facility] Comment on above: Order Comment: Speci men Type: BLOOD SPECIMEN Ordering Facility: [facility] Address: [address] [place] [address] Performed By: #### 5 7021-8 #### [facility] CLIA [id number] [address] [place], [place] [address] [place] [address] MCHC (RBC) [Mass/Vol] 31.5 g/dL Normal 30.5-36.0 [facility] Comment on above: Order Comment: Speci men Type: BLOOD SPECIMEN Ordering Facility: [facility] Address: [address] [place] [address] Performed By: #### 5 7021-8 #### [facility] CLIA [id number] [address] [place], [place] [address] [place] [address] [place] MCV (RBC) [Entitic vol] 88.4 fL Normal 80.0-100.0 [facility] Comment on above: Order Comment: Speci men Type: BLOOD SPECIMEN Ordering Facility: [facility] Address: [address] [place] [address] Performed By: #### 5 7021-8 #### [facility] CLIA [id number] [address] [place] [address] [facility] Monocytes (Bld) [#/Vol] 0.42 10*3/uL Normal <0.87 [facility] Comment on above: Order Comment: Speci men Type: BLOOD SPECIMEN Ordering Facility: [facility] Address: [address] [place] [address] Performed By: #### 5 7021-8 #### [facility] CLIA [id number] [address] [place] [address] [place] Monocytes/100 WBC (Bld) 12.9 % Normal [facility] Comment on above: Order Comment: Speci men Type: BLOOD SPECIMEN Ordering Facility: [facility] Address: [address] [place] [address] Performed By: #### 5 7021-8 #### [facility] CLIA [id number] [address] [place] [address] [place] Neutrophils (Bld) [#/Vol] 1.47 10*3/uL Normal 1.45-7.50 [facility] Comment on above: Order Comment: Speci men Type: BLOOD SPECIMEN Ordering Facility: [facility] Address: [address] [place] [address] Performed By: #### 5 7021-8 #### [facility] CLIA [id number] [address] [place] [address] [place] Neutrophils/100 WBC (Bld) 45.3 % Normal [facility] Comment on above: Order Comment: Speci men Type: BLOOD SPECIMEN Ordering Facility: [facility] Address: [address] [place] [address] Performed By: #### 5 7021-8 #### [facility] CLIA [id number] [address] [place] [address] [place] Nucleated RBC (Bld) [#/Vol] Normal [facility] Comment on above: Order Comment: Speci men Type: BLOOD SPECIMEN Ordering Facility: [facility] Address: [address] [place] [address] Performed By: #### 5 7021-8 #### [facility] CLIA [id number] [address] [place] [address] [place] Nucleated RBC/100 WBC (Bld) [Ratio] Normal [facility] Comment on above: Order Comment: Speci men Type: BLOOD SPECIMEN Ordering Facility: [facility] Address: [address] [place] [address] Performed By: #### 5 7021-8 #### [facility] CLIA [id number] [address] [place] [address] [place] Platelet mean volume (Bld) [Entitic vol] 8.3 fL Low 9.0-12.7 [facility] Comment on above: Order Comment: Speci men Type: BLOOD SPECIMEN Ordering Facility: [facility] Address: [address] [place] [address] Performed By: #### 5 7021-8 #### [facility] CLIA [id number] [address] [place] [address] [place] Platelets (Bld) [#/Vol] 238 10*3/uL Normal 150-400 [facility] Comment on above: Order Comment: Speci men Type: BLOOD SPECIMEN Ordering Facility: [facility] Address: [address] [place] [address] Performed By: #### 5 7021-8 #### [facility] CLIA [id number] [address] [place] [address] [place] RBC (Bld) [#/Vol] 4.06 10*6/uL Normal 3.90-5.20 [facility] Comment on above: Order Comment: Speci men Type: BLOOD SPECIMEN Ordering Facility: [facility] Address: [address] [place] [address] Performed By: #### 5 7021-8 #### [facility] CLIA [id number] [address] [place] [address] [place] WBC (Bld) [#/Vol] 3.25 10*3/uL Low 3.70-11.00 [facility] Comment on above: Order Comment: Speci men Type: BLOOD SPECIMEN Ordering Facility: [facility] Address: [address] [place] [address] Performed By: #### 5 7021-8 #### [facility] CLIA [id number] [address] [place] [address] [place] [address] BRAIN WO IVCONon 01-20-20 CT BRAIN WO IVCON * * *Final Report* * * DATE OF EXAM: Jan 19 2025 9:04PM [facility] 0504 - CT BRAIN WO IVCON / PROCEDURE REASON: Head trauma, moderate-severe * * * * Physician Interpretation * * * * EXAMINATION: CT BRAIN WO IVCON, CT CERVICAL SPINE WO IVCON CLINICAL HISTORY: Head trauma, moderate-severe - - Head trauma, moderate-severe (accession [id number]), Neck trauma, uncomplicated (NEXUS/CCR neg) (Age 16-64y) (accession [id number]) - TECHNIQUE: CT head and cervical spine without contrast. MQ: CTBCSWO_3 Dose-Length Product (DLP): 706.22 (accession [id number]), 154.36 (accession [id number]) mGy*cm CT Dose Reduction Employed: Automated exposure [...] vertebrae with counting from the craniocervical junction. [employer] Salesperson: [employer] Transcribe Date/Time: Jan 19 2025 9:06P Dictated by : KERRIE WARNER MD This examination was interpreted and the report reviewed and electronically signed by: KERRIE WARNER MD on Jan 19 2025 9:15PM EST [id number] Normal [facility] CT CERVICAL SPINE WO IVCONon 01-19-2025 CT CERVICAL SPINE WO IVCON * * *Final Report* * * DATE OF EXAM: Jan 19 2025 9:04PM [facility] 0505 - CT CERVICAL SPINE WO IVCON / PROCEDURE REASON: Neck trauma, uncomplicated (NEXUS/CCR neg) (Age 16-64y) * * * * Physician Interpretation * * * * EXAMINATION: CT BRAIN WO IVCON, CT CERVICAL SPINE WO IVCON CLINICAL HISTORY: Head trauma, moderate-severe - - Head trauma, moderate-severe (accession [id number]), Neck trauma, uncomplicated (NEXUS/CCR neg) (Age 16-64y) (accession [id number]) - TECHNIQUE: CT head and cervical spine without contrast. MQ: CTBCSWO_3 Dose-Length Product (DLP): 706.22 (accession [id number]), 154.36 (accession [id number]) mGy*cm CT Dose Reduction Employed: Automated exposure [...] vertebrae with counting from the craniocervical junction. [employer] Supp[employer] Salesperson: [employer] Transcribe Date/Time: Jan 19 2025 9:06P Dictated by : KERRIE WARNER MD This examination was interpreted and the report reviewed and electronically signed by: KERRIE WARNER MD on Jan 19 2025 9:15PM EST [id number] [facility] ED NOTEon 01-19-2025 ED NOTE HNO ID: [id number] Author: FLORIDALMA SZYMANSKI RN Service: Emergency Medicine Author Type: Registered Nurse Type: ED Notes Filed: 01/19/2025 23:50 Note Text: Oxygen started at 2L/NC per request from Dr. Maurer for sats staying around 90% on RA [facility] ED NOTE HNO ID: [id number] Author: FLORIDALMA SZYMANSKI RN Service: Emergency Medicine Author Type: Registered Nurse Type: ED Notes Filed: 01/19/2025 23:45 Note Text: Patient informed: the name of medication, why we are giving it, possible side effects, what they may expect to feel, and was offered a chance to ask questions, prior to the administration of fentanyl [facility] ED NOTE HNO ID: [id number] Author: FLORIDALMA SZYMANSKI, RN Service: Emergency Medicine Author Type: Registered Nurse Type: ED Notes Filed: 01/19/2025 23:08 Note Text: Called [facility] for transport eta 1 hour [facility] ED NOTE HNO ID: [id number] Author: FLORIDALMA SZYMANSKI RN Service: Emergency Medicine Author Type: Registered Nurse Type: ED Notes Filed: 01/19/2025 23:04 Note Text: Nursing quality control supervisor from [facility] called with bed assignment -[facility] -report number [phone] -accepted per Dr. Peters [facility] ED NOTE HNO ID: [id number] Author: FLORIDALMA SZYMANSKI, AUGUSTIN Service: Emergency Medicine Author Type: Registered Nurse Type: ED Notes Filed: 01/19/2025 22:38 Note Text: Drr. Maurer speaking with kimber Martinez program control analyst for Dr. Grier from [facility] per pt request Normal [facility] ED NOTE HNO ID: [id number] Author: DWIGHT YOUNGER, AUGUSTIN Service: ? Author Type: Registered Nurse Type: ED Notes Filed: 01/19/2025 19:00 Note Text: Pt fell from standing position while she was at [place]. Pt hit her head but denies loc, but does have dizziness. Pt c/o pain in r hand and r hip. Pt is also positive for covid Normal [facility] ED PROV NOTEon 01-19-2025 ED PROV NOTE HNO ID: [id number] Author: RUSSEL MAURER MD Service: Emergency Medicine [...] Labs Or (more content not included)... Normal [facility] XR CHEST 1V FRONTALon 2024 [...] and spine. IMPRESSION: No acute radiographic abnormality. Hotel Supplies Salesperson: EMMY Transcribe Date/Time: Jan 19 2025 10:19P Dictated by : CYN MORGAN DO This examination was interpreted and the report reviewed and electronically signed by: CYN MORGAN DO on Jan 19 2025 10:19PM EST [id number] Normal [facility] XR HAND 3V PA/LAT/OBL RTon [...] PELV+ AP/LAT RT CLINICAL HISTORY: Trauma (accession [id number]), Hip pain, acute, fx suspected, initial exam (accession [id number]) Technique: XR HAND 3V PA/LAT/OBL RT, XR [...] concerning for impacted right femoral neck fracture. Hotel Supplies Salesperson: PSCB Transcribe Date/Time: Jan 19 2025 10:16P Dictated by : JANNIE TOMLINSON MD This examination was interpreted and the report reviewed and electronically signed by: JANNIE TOMLINSON MD on Jan 19 2025 10:19PM EST [id number] Normal [facility] XR HIP 3V PELV+ AP/LAT [...] PELV+ AP/LAT RT CLINICAL HISTORY: Trauma (accession [id number]), Hip pain, acute, fx suspected, initial exam (accession [id number]) Technique: XR HAND 3V PA/LAT/OBL RT, XR [...] concerning for impacted right femoral neck fracture. Hotel Supplies Salesperson: PSCB Transcribe Date/Time: Jan 19 2025 10:16P Dictated by : JANNIE TOMLINSON MD This examination was interpreted and the report reviewed and electronically signed by: JANNIE TOMLINSON MD on Jan 19 2025 10:19PM EST [id number] [facility] ([id number]) 1940 F Date Time Provider Department 12/29/24 [...] Status:Closed by ISABEL JOYA on 12/29/24 Normal [facility] Laboratory - Chemistry and C hemistry - challengeOrdered By: Alexandria Dejesus on 12-28-2024 Bilirubin Ql (U) Negative [facility] Glucose Ql (U) Negative [facility] Ketones Ql (U) Negative [facility] pH (U) 6 [pH] [facility] Specific gravity (U) [Rel density] 1.015 [facility] Urobilinogen (U) [Mass/Vol] Negative [facility] Laboratory - Hematology and Cell countsOrdered By: Alexandria Dejesus on 12-28-2024 Hemoglobin Ql (U) Negative [facility] Laboratory - UrinalysisOrder ed By: Alexandria Dejesus on 12-28-2024 Nitrite Ql (U) Negative [facility] Protein Ql (U) Trace [facility] MR/Beau 12-28-2024 /BOUBACAR [facility] [address], [address] [place] [address] OFFICE VISIT Date of Service: 12/28/24 MR#: [id number] Acct: [id number] Name: MONISHA COHN Rep #: [id number] : 1940 Provider: Dr. Alexandria Lion i, MD Age/Sex: 84/F Location: [facility] Status: Signed Intake Vital Signs 09/27/24 08:22 12/28/24 13:11 Height 5 ft 2 in 5 ft 2 in Weight: 161 lb BMI 29.4 BP 115/60 Pulse 83 Intake Visit Reasons: 12m med f/u Chief Complaint: [address] [facility] follow up Manager Property Required: No Accompanied by: ursing home and family living professor Is patient in pain?: Yes (bone spur [...] History (Updated 12/28/24 @ 13:[address] 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 Normal [facility] No Panel InformationOrdered By: Alexandria Dejesus on 12-28-2024 Urine Leukocytes Negatve [facility] Urine Non-Hemolyzed Blood Negative [facility] Cardiovascular stress test r eportOrdered By: Danielle Vernon on 11-07-2024 Study report [facility] [address] [place] [address] MR#: [id number] Acct: [id number] Name: MONISHA COHN Rep #: [id number] : 1940 84 From: Danielle Vernon [...] be obtained. This note was generated with Ripple[employer] dictation software. It may contain incorrectwords, spelling, and punctuation that were not noted in checking the note beforesigning. 11/07/241427 Date _ Danielle Vernon MD CC: Dr. Danielle Vernon MD; Tressa Bobby ~ Date Dictated: 11/07/241426 Date Transcribed: 11/07/241426 Hotel Supplies Salesperson: EVANGELINA Wiseman [facility] Work Phone: Echocardiogram study reportO rdered By: Danielle Vernon on 11-07-2024 Study report [facility] Cardi[facility] Services [address] [place] [address] Echo Complete 11/03/24928 MR#: [id number] Acct: [id number] Name: MONIHSA COHN Rep #:[id number] : 1940 84 From: Danielle Vernon MD Attending Dr: Dr. Danielle Vernon MD Status: REG CLI Ordering Dr: Danielle Vernon MD Date: Location: [facility] Sex: F C Admitted: Reason For [...] Date Dictated: 11/03/24928 Date Transcribed: 07/28/25 1248 Hotel Supplies Salesperson: Signed [facility] Work Phone: Stress Reporton 11-07-2024 Stress Report [facility] [place] [address] MR#: [id number] Acct: [id number] Name: MONISHA COHN Rep #: [id number] : 1940 84 From: Danielle Vernon MD [...] be obtained. This note was generated with Johns Hopkins Universityation software. It may contain incorrect words, spelling, and punctuation that were not noted in checking the note before signing. 11/07/241427 Date Danielle Vernon MD CC: Dr. Danielle Vernon MD; Tressa Rosales Date Dictated: 11/07/241426 Date Transcribed: 11/07/241426 Hotel Supplies Salesperson: EVANGELINA Signed Normal [facility] Echo Completeon 11-03-2024 Echo Complete [facility] [address] [place] [address] Echo Complete 11/03/24 0929 MR#: [id number] Acct: [id number] Name: MONISHA COHN Rep #: [id number] : 1940 84 From: Danielle Vernon MD Attending Dr: Dr. Danielle Vernon MD Status: REG CLI Ordering Dr: Danielle Vernon MD Date: 11/03/24 Location: [facility] Sex: F C Admitted: Reason For [...] Bobby Date Dictated: 11/03/24928 Date Transcribed: 11/07/241247 Hotel Supplies Salesperson: Signed Normal [facility] Cardiology Visit Reporton Cardiology Visit Report [facility] [address] [place] [address] OFFICE VISIT Date of Service: 09/27/24 MR#: [id number] Acct: [id number] Name: MONISHA COHN Rep #: [id number] : 1940 Provider: Dr. Danielle Vernon MD Age/Sex: 84/F Location: [facility] Status: Signed HPI HPI History of [...] NIBP Intake Visit Reasons: 6 M FU Manager Property Required: No Accompanied by: Is patient in [...] past year?: Yes (no major injuries; 2) REPLACED BY [facility] Medical History Atherosclerotic heart disease of [place] coronary artery without angina pectoris Bladder spasms [...] for fatigue (more content not included)... Normal [facility] CNOVon 07-29-2024 CNOV Office Visit (NMMBHT ) MONISHA COHN ([id number]) 1940 F Date Time Provider Department 07/29/24 3:00 PM ARMEN MADISON During your visit today, we recorded the following information about you: Pulse Blood pressure 68/minute 110/65 Armen Madison MD 07/29/2024 3:33 PM Signed [facility] New Patient Visit Note Consultation [...] further r (more content not included)... Normal [facility] Folate SerPl-mCncon 07-30-19 25 Folate [Mass/Vol] 6.2 ng/mL Normal >4.7 [facility] Comment on above: Order Comment: Liza granados Type: BLOOD SPECIMEN Ordering Facility: [facility] Address: [address] [place] [address] Performed By: #### 2 284-8, 2132-9 #### [facility] CLIA [id number] [address] [place] [address] [place] HbA1c (Bld)on 07-29-2024 Average glucose Estimated from glycated hemoglobin (Bld) [Mass/Vol] 100 mg/dL Normal [facility] Comment on above: Order Comment: Liza granados Type: BLOOD SPECIMEN Ordering Facility: [facility] Address: [address] [place] [address] Result Comment: eAG: (Estimated average glucose) is a calculated value from HgbA1c and is litigation claim representative of the average blood glucose level in the last 2-3 month period. Performed By: #### 5 5454-3 #### [facility] CLIA [id number] [address] [place] [address] [place] HbA1c (Bld) [Mass fraction] 5.1 % Normal 4.3-5.6 [facility] Comment on above: Order Comment: Liza granados Type: BLOOD SPECIMEN Ordering Facility: [facility] Address: [address] [place] [address] Result Comment: Amer ican Diabetes Association guidelines indicate that patients with HgbA1c in the range 5.7-6.4% are at increased risk for development of diabetes, and intervention by lifestyle modification may be beneficial. HgbA1c greater or equal to 6.5% is considered diagnostic of diabetes. Performed By: #### 5 5454-3 #### [facility] CLIA [id number] [address] [place] [address] IMMUNOFIXATION SCREEN, SERUM on 07-29-2024 INTERPRETATION (MPA) Atypical restricted bands are present in the IgG and lambda regions. Consistent with IgG lambda monoclonal gammopathy. Normal [facility] Comment on above: Order Comment: Liza granados Type: BLOOD SPECIMEN Ordering Facility: [facility] Address: [address] [place] [address] Performed By: #### I FESC #### [facility] CLIA [id number] [address] [place] [address] STATES OF [facility] MPA RESULT M protein is present. Abnormal No M p rotein is identified. [facility] Comment on above: Order Comment: Liza granados Type: BLOOD SPECIMEN Ordering Facility: [facility] Address: [address] [place] [address] Performed By: #### I FESC #### [facility] CLIA [id number] [address] [place] [address] OF [facility] STAFF REVIEW (MPA) Reviewed by Beatriz Estes M.D., Ph.D Normal [facility] Comment on above: Order Comment: Liza granados Type: BLOOD SPECIMEN Ordering Facility: [facility] Address: [address] [place] [address] Performed By: #### I FESC #### [facility] CLIA [id number] [address] [place], [place] [address] [place] KAPPA/ZIMMERMAN,FREE,SERon 2024 Immunoglobulin light chains.kappa.free (S) [Mass/Vol] 20.0 mg/L High 3.3-19.4 [facility] Comment on above: Order Comment: Speci roberta Type: BLOOD SPECIMEN Ordering Facility: [facility] Address: [address] [place] [address] Result Comment: Rare ly, increased serum free light chains levels may not be detected or accurately quantified due to prozone phenomenon or in high viscosity samples using this immunoturbidimetric assay. Correlation with other laboratory results and clinical findings is recommended. The [place] Free Light Chain was performed using the Binding Site Optilite immunoturbidimetric method. Result obtained with different assay methods or kits cannot be used interchangeably. Performed By: #### K LFRS #### [facility] CLIA [id number] [address] [place] [address] [place] Immunoglobulin light chains.kappa/Immunoglobu lacey light chains.lambda (S) [Mass ratio] 0.16 Low 0.26-1.65 [facility] Comment on above: Order Comment: Specmiguel granados Type: BLOOD SPECIMEN Ordering Facility: [facility] Address: [address] [place] [address] Performed By: #### K LFRS #### [facility] CLIA [id number] [address] [place] [address] [place] Immunoglobulin light chains.lambda.free [Mass/Vol] 121.8 mg/L High 5.7-26.3 [facility] Comment on above: Order Comment: Liza granados Type: BLOOD SPECIMEN Ordering Facility: [facility] Address: [address] [place] [address] Result Comment: Rare ly, increased serum free [...] interchangeably. Performed By: #### K LFRS #### [facility] CLIA [id number] [address] [place] [address] [place] Methylmalonate SerPl-sCncon 07-29-2024 Methylmalonate [Moles/Vol] 0.18 umol/L Normal <=0.40 [facility] Comment on above: Order Comment: Liza granados Type: BLOOD SPECIMEN Ordering Facility: [facility] Address: [address] [place] [address] Result Comment: This test was developed, and its performance characteristics determined by the [facility] Department of Pathology and Laboratory Medicine. It has not been cleared or approved by the FDA. The [facility] Department of Pathology and Laboratory Medicine is regulated under CLIA as qualified to perform high-complexity testing. This test is used for clinical purposes. It should not be regarded as investigational or for research. Performed By: #### 1 3964-2 #### [facility] CLIA [id number] [address] [place] [address] [place] VITAMIN B1 (THIAMINE), WHOLE BLOODon 07-29-2024 Thiamine (Bld) [Moles/Vol] 118.7 nmol/L Normal 84.3-213.3 [facility] Comment on above: Order Comment: Liza granados Type: BLOOD SPECIMEN Ordering Facility: [facility] Address: [address] [place] [address] Result Comment: This assay measures the concentration of thiamine diphosphate (TDP), the primary active form of vitamin B1. Approximately 90 percent of vitamin B1 present in whole blood is TDP. Thiamine and thiamine monophosphate, which comprise the remaining 10 percent, are not measured. This test was developed, and its performance characteristics determined by the [facility] Department of Pathology and Laboratory Medicine. It has not been cleared or approved by the FDA. The [facility] Department of Pathology and Laboratory Medicine is regulated under CLIA as qualified to perform high-complexity testing. This test is used for clinical purposes. It should not be regarded as investigational or for research. Performed By: #### B 1WB #### [facility] CLIA [id number] [address] [place] [address] [place] Vit B12 SerPl-mCncon 025 Cobalamin (Vitamin B12) [Mass/Vol] 876 pg/mL Normal 232-1245 [facility] Comment on above: Order Comment: Speci men Type: BLOOD SPECIMEN Ordering Facility: [facility] Address: [address] [place] [address] Performed By: #### 2 284-8, 2132-9 #### [facility] CLIA [id number] [address] [place] [address] CNOVon 06-28-2024 CNOV Office Visit (NRMDN) MONISHA COHN ([id number]) 1940 F Date Time Provider Department 06/28/24 8:00 AM EM FLYNN NRHANH During your visit today, we recorded the following information about you: Pulse Blood pressure Weight Height 76/minute 112/74 70.5 kg 1.575 m Em Flynn APRN.CNP 06/28/2024 11:22 PM Signed [facility] - FOLLOW UP EVALUATION The patient consented to the use of ambient PubNub software for draft documentation of the visit consistent with [facility]?s Notice of Privacy Practices. Alexandra Arreguin APRN.SHOELACE TIPPING MACHINE OPERATOR [address] [address] Dear Alexandra Arreguin APRN.SHOELACE TIPPING MACHINE OPERATOR: I had the pleasure of [...] directives (living will and durable power of kier drier for healthcare): By Email: Send your document(s) to [email or web address] as an attachment in either PDF, TIFF, or JPEG format. By Mail: [facility] Information Management, [employer] Advance Directive Processing [address] [place], [place] [address] By In person at any [facility] location Please note: You can use the address or fax number regardless of which [facility] you utilize, and we will make [...] she find (more content not included)... Normal [facility] Hepatobilliary Img w/Pharm I nton 06-03-2024 Hepatobilliary Img w/Pharm Int [facility] Services [address] [place], [place] [address] Hepatobilliary Img w/Pharm Int MR#: [id number] Acct: [id number] Name: MONISHA COHN Rep #: [id number] : 1940 F 84 From: Hong byrne MD PCP: Tressa Rosales Status: REG CLI Study: Hepatobilliary Img w/Pharm Int Date of Exam: 0 06/03/24 Exam# [id number] Ordering Dr: Didi Lujan LOAN APPROVER N P-C PROCEDURE: HEPATOBILLIARY IMG W/PHARM INT [...] SCAN AND GALLBLADDER EJECTION FRACTION. Reading Location: [place] [address] CC: Didi Lujan; Tressa Rosales Hotel Supplies Salesperson: Signed Normal [facility] Cardiology Visit Reporton Cardiology Visit Report [facility] [address] [place] [address] OFFICE VISIT Date of Service: 03/16/24 MR#: [id number] Acct: [id number] Name: MONISHA COHN Rep #: [id number] : 1940 Provider: Dr. 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 Normal [facility] Large Joint Arthro/Inj: L sh ould jointon [...] the patient voiced understanding of these instructions. [facility] XR Shoulder - left 3 Viewson 10-01-2023 IMPRESSION: Degenerative changes with chronic rotator cuff tear. Hotel Supplies Salesperson: [facility] Transcribe Date/Time: Oct 01 2023 6:45A Dictated by : SHENA OAKLEY MD This examination was interpreted and the report reviewed and electronically signed by: SHENA OAKLEY MD on Oct 01 2023 6:46AM EST [facility] * * *Final Report* * * [...] rotator cuff tear. No fracture or dislocation. [facility] Provider, [facility] - 10/01/2023 * * *Final Report* * [...] Degenerative changes with chronic rotator cuff tear. Hotel Supplies Salesperson: EMMY Transcribe Date/Time: Oct 01 2023 6:45A Dictated by : SHENA OAKLEY MD This examination was interpreted and the report reviewed and electronically signed by: SHENA OAKLEY MD on Oct 01 2023 6:46AM EST [facility] XR Shoulder - left 3 ViewsOr dered By: [facility] Provider on 10-01-2023 [facility] XR SHLDR >/=3V AP/KIERA AP/OTH R [...] Degenerative changes with chronic rotator cuff tear. Hotel Supplies Salesperson: PSCB Transcribe Date/Time: Oct 01 2023 6:45A Dictated by : SHENA OAKLEY MD This examination was interpreted and the report reviewed and electronically signed by: SHENA OAKLEY MD on Oct 01 2023 6:46AM EST [id number] [facility] XR Shoulder - left 3 Viewson 09-29-2023 Radiology [facility]ative[facility] W JOHN PAUL LTon 024 [facility] DIAG W JOHN PAUL LT * * *Final Report* * * DATE OF EXAM: Sep 23 2023 9:39AM JOSÉ LUIS 0628 - [facility] DIAG W JOHN PAUL LT / PROCEDURE REASON: R92.2 INCONCLUSIVE MAMMOGRAM * * * * Physician Interpretation * * * * #[id number] - [facility] DIAG W JOHN PAUL LT #[id number] - [facility] BREAST LTD LT UNILATERAL LEFT [...] Comparison is made to exam dated: 08/13/2023 [facility]. The left breast is almost [...] Comparison is made to exam dated: 08/13/2023 [facility]. Ultrasound of was performed. Imaging [...] Medicine, and Medical/Surgical Oncology, the [facility] has carefully reviewed the data and [...] their providers when to stop screening mammograms. Claims Adjudicator(s): Rafia Wanger RT(R)(M), [facility]; RT Nicole(R), [facility] OVERALL STUDY BIRADS: 2 Benign finding Hotel Supplies Salesperson: Gi Transcribe Date/Time: Sep 23 2023 9:21A Dictated by : AJAY BULLOCK MD This examination was interpreted and the report reviewed and electronically signed by: AJAY BULLOCK MD on Sep 23 2023 10:55AM EST [id number] Normal [facility] US BREAST LTD LTon 09-22 [facility] Labelby.me BREAST LTD LT * * *Final Report* * * DATE OF EXAM: Sep 23 2023 10:32AM JASPREET 0593 - [facility] Labelby.me BREAST LTD LT / PROCEDURE REASON: Abnormal mammogram * * * * Physician Interpretation * * * * #[id number] - [facility] DIAG W JOHN PAUL LT #[id number] - [facility] Labelby.me BREAST LTD LT UNILATERAL LEFT DIGITAL DIAGNOSTIC [...] made to exam dated: 08/13/2023 mammogram - [facility]. The left breast is almost entirely fatty. [...] made to exam dated: 08/13/2023 mammogram - [facility]. Ultrasound of was performed. Imaging was done [...] mammogram screening schedule is recommended. Ajay BENITEZ, [facility]/gi:09/23/2023 10:55:35 Multiple national specialty organizations have released breast cancer screening guidelines for women at average risk for developing breast cancer - guidelines that are based on both evidence and opinion, yet differ on when to start and how often to screen for breast cancer. With representation from Breast Imaging, Internal Medicine, Women's Health, Family Medicine, and Medical/Surgical Oncology, the [facility] has carefully reviewed the data and [...] their providers when to stop screening mammograms. Claims Adjudicator(s): Rafia Wagner RT(R)(M), [facility]; RT Nicole(R), [facility] OVERALL STUDY BIRADS: 2 Benign finding Hotel Supplies Salesperson: Gi Transcribe Date/Time: Sep 23 2023 9:21A Dictated by : AJAY BULLOCK MD This examination was interpreted and the report reviewed and electronically signed by: AJAY BULLOCK MD on Sep 23 2023 10:55AM EST [id number] Normal [facility] US Breast - left limitedon 0 09-23-2023 * * *Final Report* * * DATE OF EXAM: Sep 23 2023 10:32AM JASPREET 0593 - [facility] Labelby[employer]me BREAST LTD LT / PROCEDURE REASON: Abnormal mammogram * * * * Physician Interpretation * * * * #[id number] - [facility] DIAG W JOHN PAUL LT #[id number] - [facility] US BREAST LTD LT UNILATERAL LEFT [...] made to exam dated: 08/13/2023 mammogram - [facility]. The left breast is almost entirely fatty. [...] other findings are seen in the breast. [facility] Provider, [facility] - 09/23/2023 * * *Final Report* * * DATE OF EXAM: Sep 23 2023 10:32AM JASPREET 0593 - [facility] Ed[employer]ation.me LTD LT / PROCEDURE REASON: Abnormal mammogram * * * * Physician Interpretation * * * * #[id number] - [facility] DIAG W JOHN PAUL LT #[id number] - [facility] Labelby.me BREAST LTD LT UNILATERAL LEFT DIGITAL DIAGNOSTIC [...] Comparison is made to exam dated: 08/13/2023 [facility]. The left breast is almost [...] Comparison is made to exam dated: 08/13/2023 [facility]. Ultrasound of was performed. Imaging [...] schedule is recommended. Ajay Bullock M.D. FACR, [facility] [place]/gi:09/23/2023 10:55:35 Multiple national specialty organizations have released breast cancer screening guidelines for women at average risk for developing breast cancer - guidelines that are based on both evidence and opinion, yet differ on when to start and how often to screen for breast cancer. With representation from Breast Imaging, Internal Medicine, Women's Health, Family Medicine, and Medical/Surgical Oncology, the [facility] has carefully reviewed the data and [...] their providers when to stop screening mammograms. Claims Adjudicator(s): RT Yumiko(R)(M), [facility]; RT Nicole(R), [facility] OVERALL STUDY BIRADS: 2 Benign finding Hotel Supp[employer] Salesperson: Gi Transcribe Date/Time: Sep 23 2023 9:21A Dictated by : AJAY BULLOCK MD This examination was interpreted and the report reviewed and electronically signed by: AJAY BULLOCK MD on Sep 23 2023 10:55AM EST [facility] Radiology Study observation (narrative) [facility] US Breast - left limitedOrde red By: [facility] Provider on 09-23-2023 [facility] BD DXA - AXIAL SKELETONon BD [...] years, Gender: Female SCANNER INFORMATION: DXA Model: [employer] [id number] Date Scanned: 08/13/2023 2:25 PM CLINICAL HISTORY: [...] had a previous bone density in the [facility] or the previous bone density was performed on a different DXA machine (new, updated model or different location) within the [facility]. VERTEBRAL FRACTURE ASSESSMENT Not performed. TRABECULAR [...] FOR MORE INFORMATION ABOUT DIAGNOSIS AND TREATMENT: [facility] Osteoporosis and Metabolic Bone Disease:? www.ccf.org/arthritis/ osteo National Osteoporosis Foundation:? www.nof.org International Society of Clinical Densitometry www.iscd.org [employer] Salesperson: EMMY Transcribe Date/Time: Aug 14 2023 8:30A Dictated by : SHENA OAKLEY MD This examination was interpreted and the report reviewed and electronically signed by: SHENA OAKLEY MD on Aug 14 2023 8:31AM EST [id number] -3.1 Normal [facility] SCREENINGon 08-13-2023 [facility] SCREENING * * *Final Report* * * DATE OF EXAM: Aug 13 2023 2:10PM JOSÉ LUIS 0581 - [facility] SCREENING / PROCEDURE REASON: Z12.31 SCREENING MAMMOGRAM * * * * Physician Interpretation * * * * #[id number] - [facility] SCREENING BILATERAL DIGITAL SCREENING MAMMOGRAM WITH [...] possible ultrasound are recommended. [place]/gi:08/14/2023 11:00:52 Claims Adjudicator(s): RT Maribel(Carla)(M), [facility] letter sent: Additional Imaging Needed Mammogram BI-RADS: 0 Incomplete: needs additional imaging evaluation If this report indicates you need additional imaging, and it has NOT yet been performed, please call , to schedule. We sincerely thank you for choosing the [facility] for your breast imaging needs. Multiple [...] Medicine, and Medical/Surgical Oncology, the [facility] has carefully reviewed the data and [...] their providers when to stop screening mammograms. [employer] Salesperson: Gi Transcribe Date/Time: Aug 13 2023 1:56P Dictated by : JAYLEEN CASTELLANOS MD This examination was interpreted and the report reviewed and electronically signed by: JAYLEEN CASTELLANOS MD on Aug 14 2023 11:00AM EST [id number] [facility] MR Cervical spine WO contras ton 07-29-2023 [facility] Absolute lymphocyte countOrd ered By: Law Gold on 05-01-2023 Lymphocytes Auto (Unsp spec) [#/Vol] 1.22 10*3/uL 0.83-4.51 [facility] Activated partial thrombopla stin time (aPTT) in platelet poor plasma by coagulation aOrdered By: Law Gold on 05-01-2023 aPTT Coag (PPP) [Time] 23.0 s 24.1-36.2 [facility] Automated lymphocyte count a s percentage of total leukocytesOrdered By: Law Gold on 05-01-2023 Lymphocytes/100 WBC Auto (Unsp spec) 19.9 % 19-41 [facility] Basophil percentageOrdered B y: Law Gold on 05-01-2023 Basophils/100 WBC (Bld) 0.8 % 0-1 [facility] Chloride [Moles/Vol] 106 mmol/L 98-107 [facility] Eosinophils/100 WBC (Bld) 5.2 % 0-5 [facility] Glucose [Mass/Vol] 87 mg/dL 74-106 [facility] Hemoglobin (Bld) [Mass/Vol] 10.7 g/dL 12.0-15.0 [facility] Monocytes/100 WBC (Bld) 11.6 % 0-10 [facility] Neutrophils (Bld) [#/Vol] 3.8 10*3/uL 2.0-7.7 [facility] Neutrophils/100 WBC (Bld) 62.2 % 47-70 [facility] Potassium [Moles/Vol] 4.4 mmol/L 3.5-5.1 [facility] Sodium [Moles/Vol] 139 mmol/L 136-145 [facility] WBC (Bld) [#/Vol] 6.1 10*3/uL 4.4-11.0 [facility] Determination of erythrocyte mean corpuscular volume (MCV)Ordered By: Law Gold on 05-01-2023 MCV (RBC) [Entitic vol] 90.3 fL 81-99 [facility] Erythrocyte distribution wid th ratioOrdered By: [...] PT Coag (PPP) [Time] 16.1 s 11.7-14.9 [facility] - Hematology and Cell countsOrdered By: Law Gold on 05-01-2023 MCH (RBC) [Entitic mass] 28.2 pg 27.0-32.0 [facility] MCHC (RBC) [Mass/Vol] 31.2 g/dL 32-36 [facility] Nucleated RBC/100 WBC (Bld) [Ratio] 0 [...] 05-01-2023 RBC (Bld) [#/Vol] 3.80 10*6/uL 4.2-5.4 [facility] Serum or plasma calcium taylor urement (mass/volume)Ordered By: Law Gold on 05-01-2023 Calcium [Mass/Vol] 8.9 mg/dL 8.5-10.1 [facility] Serum or plasma creatinine m easurement (mass/volume)Ordered By: Law Gold on 05-01-2023 Creatinine [Mass/Vol] 0.79 mg/dL 0.55-1.02 [facility] Comment on above: The validity of the calculated GFR & GFRAA in patients over 70 years has not been determined. Clinical correlation is essential. Serum or plasma urea nitroge n measurement (mass/volume)Ordered By: Law Gold on 05-01-2023 Urea nitrogen [Mass/Vol] 15 mg/dL 7-18 [facility] Thin prep Papanicolaou smear with manual screeningOrdered By: Lwa Gold on 05-01-2023 Thin prep Papanicolaou smear with manual screening 5 5-15 [facility] Absolute lymphocyte countOrd ered By: Darline Lundy on 02-06-2023 Lymphocytes Auto (Unsp spec) [#/Vol] 2.15 10*3/uL 0.83-4.51 [facility] Basophil percentageOrdered B y: Darline Lundy on 02-06-2023 Basophils/100 WBC (Bld) 0.4 % 0-1 [facility] Chloride [Moles/Vol] 108 mmol/L 98-107 [facility] Eosinophils/100 WBC (Bld) 2.6 % 0-5 [facility] Glucose [Mass/Vol] 90 mg/dL 74-106 [facility] Neutrophils (Bld) [#/Vol] 3.9 10*3/uL 2.0-7.7 [facility] Neutrophils/100 WBC (Bld) 55.6 % 47-70 [facility] Potassium [Moles/Vol] 4.2 mmol/L 3.5-5.1 [facility] Sodium [Moles/Vol] 140 mmol/L 136-145 [facility] WBC (Bld) [#/Vol] 7.0 10*3/uL 4.4-11.0 [facility] Blood erythrocytes count (nu mber/volume)Ordered By: Darline Lundy on 02-06-2023 RBC (Bld) [#/Vol] 2.47 10*6/uL 4.2-5.4 [facility] Blood hemoglobin measurement (mass/volume)Ordered By: Darline Lundy on 02-06-2023 Hemoglobin (Bld) [Mass/Vol] 7.8 g/dL 12.0-15.0 [facility] Blood lymphocytes/100 leukoc ytesOrdered By: Darline Lundy on 02-06-2023 Lymphocytes/100 WBC (Bld) 30.5 % 19-41 [facility] Blood monocytes/100 leukocyt esOrdered By: Darline Lundy on 02-06-2023 Monocytes/100 WBC (Bld) 10.2 % 0-10 [facility] Blood platelet mean volumeOr dered By: [...] (RBC) [Entitic vol] 90.7 fL 81-99 [facility] Hematocrit Auto (Bld) [Volum e fraction]Ordered [...] 02-06-2023 MCHC (RBC) [Mass/Vol] 31.7 g/dL 32-36 [facility] Comment on above: Delta: 33.5 on [...] on 02-06-2023 Calcium [Mass/Vol] 7.9 mg/dL 8.5-10.1 [facility] Serum or plasma creatinine m easurement (mass/volume)Ordered By: Darline Lundy on 02-06-2023 Creatinine [Mass/Vol] 0.64 mg/dL 0.55-1.02 [facility] Comment on above: The validity of [...] Lundy on 02-03-2023 Hypochromia Ql (Bld) 1+ [facility] Review by pathologistOrdered By: Darline [...] on 02-02-2023 Bilirubin [Mass/Vol] 1.10 mg/dL 0.20-1.00 [facility] Comment on above: For patients on eltr ombopag therapy, use of Dimension [place] TBIL is not recommended. Protein [Mass/Vol] 5.6 g/dL 6.4-8.2 [facility] Laboratory - Chemistry and C hemistry - challengeOrdered By: Jasmin Steele on 02-02-2023 ALP [Catalytic activity/Vol] 51 U/L 45-117 [facility] ALT [Catalytic activity/Vol] 7 U/L 13-56 [facility] Globulin (S) [Mass/Vol] 2.8 g/dL 2.2-4.2 [facility] No Panel InformationOrdered By: Davian Grier on 02-02-2023 Vitamin D 25-Hydroxy 34.0 ng/mL [facility] Comment on above: Vitamin D 25(OH) Sta tus Range Deficiency <20 ng/mL (50nmol/L) Insufficiency 20 - 30 ng/mL (50 - 75 nmol/L) Sufficiency 30 - 100 ng/mL (75 - 250 nmol/L) Toxicity >100 ng/mL (>250 nmol/L) Serum or plasma albumin taylor urement (mass/volume)Ordered By: Jasmin Steele on 02-02-2023 Albumin [Mass/Vol] 2.8 g/dL 3.2-5.0 [facility] Serum or plasma albumin/glob ulin mass [...] Basophils/100 WBC (Bld) 1.0 % 0-1 [facility] Chloride [Moles/Vol] 107 mmol/L 98-107 [facility] Eosinophils/100 WBC (Bld) 1.7 % 0-5 [facility] Glucose [Mass/Vol] 98 mg/dL 74-106 [facility] Neutrophils (Bld) [#/Vol] 2.9 10*3/uL 2.0-7.7 [facility] Neutrophils/100 WBC (Bld) 60.2 % 47-70 [facility] Potassium [Moles/Vol] 4.2 mmol/L 3.5-5.1 [facility] Sodium [Moles/Vol] 141 mmol/L 136-145 [facility] WBC (Bld) [#/Vol] 4.8 10*3/uL 4.4-11.0 [facility] Blood erythrocytes count (nu mber/volume)Ordered By: Niko Lorenz on 02-01-2023 RBC (Bld) [#/Vol] 3.93 10*6/uL 4.2-5.4 [facility] Blood hemoglobin measurement (mass/volume)Ordered By: Niko Lorenz on 02-01-2023 Hemoglobin (Bld) [Mass/Vol] 10.8 g/dL 12.0-15.0 [facility] Blood lymphocytes/100 leukoc ytesOrdered By: Niko Lorenz on 02-01-2023 Lymphocytes/100 WBC (Bld) 28.0 % 19-41 [facility] Blood monocytes/100 leukocyt esOrdered By: Niko Lorenz on 02-01-2023 Monocytes/100 WBC (Bld) 8.9 % 0-10 [facility] Blood platelet mean volumeOr dered By: Niko Lorenz on 02-01-2023 Platelet mean volume (Bld) [Entitic vol] 8.7 fL 6.2-12.0 [facility] Determination of erythrocyte mean corpuscular volume (MCV)Ordered By: Niko Lorenz on 02-01-2023 MCV (RBC) [Entitic vol] 89.6 fL 81-99 [facility] Glucose Glucometer (BldC) [M ass/Vol]Ordered By: Darline Lundy on 02-01-2023 Glucose [Mass/Vol] 99 mg/dL 74-106 [facility] Comment on above: MANAGEMENT OF PATIEN [...] PT Coag (PPP) [Time] 14.8 s 11.7-14.9 [facility] - Hematology and Cell [...] 02-01-2023 MCHC (RBC) [Mass/Vol] 30.7 g/dL 32-36 [facility] No Panel InformationOrdered By: Niko Lorenz [...] on 02-01-2023 Calcium [Mass/Vol] 8.6 mg/dL 8.5-10.1 [facility] Serum or plasma creatinine m easurement (mass/volume)Ordered By: Niko Lorenz on 02-01-2023 Creatinine [Mass/Vol] 0.85 mg/dL 0.55-1.02 [facility] Comment on above: The validity of [...] [facility] Bas[facility] percentageOrdered B y: Danielle Saulo on 01-05-2023 Chloride [Moles/Vol] 107 mmol/L 98-107 [facility] Glucose [Mass/Vol] 95 mg/dL 74-106 [facility] Potassium [Moles/Vol] 4.3 mmol/L 3.5-5.1 [facility] Sodium [Moles/Vol] 139 mmol/L 136-145 [facility] - Chemistry and C hemistry [...] on 01-05-2023 Calcium [Mass/Vol] 8.8 mg/dL 8.5-10.1 [facility] Serum or plasma creatinine m easurement (mass/volume)Ordered By: Danielle Vernon on 01-05-2023 Creatinine [Mass/Vol] 1.01 mg/dL 0.55-1.02 [facility] Comment on above: The validity of [...] [facility] Absolute lymphocyte counton 2022 Lymphocytes Auto (Unsp spec) [#/Vol] 1.71 10*3/uL 0.83-4.51 [facility] Work Phone: Basophil percentageon 2021 Basophils/100 WBC (Bld) 0.8 % 0-1 [facility] Work Phone: Bilirubin [Mass/Vol] 0.60 mg/dL 0.20-1.00 [facility] Work Phone: Comment on above: For patients on eltr ombopag therapy, use of Dimension [place] TBIL is not recommended. Chloride [Moles/Vol] 106 mmol/L 98-107 [facility] Work Phone: Cholesterol [Mass/Vol] 171 mg/dL <200 [facility] Work Phone: Comment on above: <200 mg/dL Desirable 200-240 mg/dL Borderline >240 mg/dL High Risk Eosinophils/100 WBC (Bld) 1.8 % 0-5 [facility] Work Phone: Glucose [Mass/Vol] 93 mg/dL 74-106 [facility] Work Phone: Neutrophils (Bld) [#/Vol] 2.5 10*3/uL 2.0-7.7 [facility] Work Phone: Neutrophils/100 WBC (Bld) 51.0 % 47-70 [facility] Work Phone: Potassium [Moles/Vol] 4.6 mmol/L 3.5-5.1 [facility] Work Phone: Protein [Mass/Vol] 7.3 g/dL 6.4-8.2 [facility] Work Phone: Sodium [Moles/Vol] 139 mmol/L 136-145 [facility] Work Phone: Triglyceride [Mass/Vol] 76 mg/dL <199 [facility] Work Phone: Comment on above: The drugs N-Acetylcy steine and Metamizole may falsely depress this assay.Serum Triglycerides Reference Interval Normal <150 mg/dL Borderline high 150 - 199 mg/dL High 200 - 499 mg/dL Very High > or = 500 mg/dL WBC (Bld) [#/Vol] 5.0 10*3/uL 4.4-11.0 [facility] Work Phone: Blood erythrocytes count (nu mber/volume)on 2022 RBC (Bld) [#/Vol] 4.37 10*6/uL 4.2-5.4 [facility]: Blood hemoglobin measurement (mass/volume)on 2022 Hemoglobin (Bld) [Mass/Vol] 11.9 g/dL 12.0-15.0 [facility] Work Phone: Blood lymphocytes/100 leukoc yteson 2022 Lymphocytes/100 WBC (Bld) 34.5 % 19-41 [facility] Work Phone: [phone] Blood monocytes/100 leukocyt eson 2022 Monocytes/100 WBC (Bld) 11.7 % 0-10 [facility] Work Phone: Blood platelet mean volumeon 2022 Platelet mean volume (Bld) [Entitic vol] 9.1 fL 6.2-12.0 [facility] Work Phone: Determination of erythrocyte mean corpuscular volume (MCV)on 2022 MCV (RBC) [Entitic vol] 88.3 fL 81-99 [facility] Work Phone: [phone] Hematocrit Auto (Bld) [Volum e fraction]on 2022 Hematocrit (Bld) [Volume fraction] 38.6 % 37-47 [facility] Work Phone: Laboratory - Chemistry and C hemistry - challengeon 2022 ALP [Catalytic activity/Vol] 71 U/L 45-117 [facility] Work Phone: ALT [Catalytic activity/Vol] 16 U/L 13-56 [facility] Work Phone: [phone] CO2 [Moles/Vol] 28.0 mmol/L 21.0-32.0 [facility] Work Phone: Globulin (S) [Mass/Vol] 3.6 g/dL 2.2-4.2 [facility] Work Phone: Urea nitrogen/Creatinine [Mass ratio] 22.8 mg/mg 10-20 [facility] Work Phone: Bilirubin Ql (U) Small (1+) [facility] Work Phone: [phone] Glucose Ql (U) Negative [facility] Work Phone: [phone] Ketones Ql (U) Small (15+) [facility] Work Phone: [phone] pH (U) 6.5 [pH] [facility] Work Phone: [phone] Specific gravity (U) [Rel density] 1.025 [facility] Work Phone: [phone] Urobilinogen (U) [Mass/Vol] 1 mg/dL [facility] Work Phone: [phone] Laboratory - Hematology and Cell countson [...] Trace [facility] Work Phone: [phone] MCHC Auto (RBC) [Mass/Vol]on 2022 MCHC (RBC) [Mass/Vol] 30.8 g/dL 32-36 [facility] Work Phone: No Panel Informationon 03-26 [...] (mass/volume)on 2022 Albumin [Mass/Vol] 3.7 g/dL 3.2-5.0 [facility] Work Phone: [phone] Serum or plasma albumin/glob ulin mass ratioon 2022 Albumin/Globulin [Mass ratio] 1.0 {ratio} 0.9-2.4 [facility] Work Phone: Serum or plasma calcium taylor urement (mass/volume)on 2022 Calcium [Mass/Vol] 9.0 mg/dL 8.5-10.1 [facility] Work Phone: Serum or plasma cholesterol [...] (mass/volume)on 2022 Creatinine [Mass/Vol] 1.01 mg/dL 0.55-1.02 [facility] Work Phone: Comment on above: The [...] 7-18 [facility] Work Phone: Serum or plasma uric [...] 5-15 [facility] Work Phone: [phone] Vital Signs Date Time Vital Sign Value Performing Clinician Faci lity 01-25-2025 10:36-0400 Body temperature 98.4 [degF] [facility] 01-25-2025 10:36-0400 Diastolic blood pressure 52 mm[Hg] [facility] 01-25-2025 10:36-0400 Heart rate 83 /min [facility] 01-25-[facility]25 10:36-0400 Respiratory rate 16 /min [facility] 01-25-2025 10:36-0400 SaO2% (BldA) [Mass fraction] 98 % [facility] 01-25-2025 10:36-0400 Systolic blood pressure 113 mm[Hg] [facility] 01-25-2025 06:00-0400 Body mass index (BMI) [Ratio] 30.7 kg/m2 [facility] 01-25-2025 06:00-0400 Body weight 75.7 kg [facility] 01-22-2025 08:05-0400 Inhaled oxygen flow rate 2 L/min [facility] 01-20-2025 11:58-0400 Body height 157 cm [facility] 12-28-2024 13:11-0400 Body height 157.48 cm [facility] 12-28-2024 13:11-0400 Body mass index (BMI) [Ratio] 29.4 kg/m2 [facility] 12-28-2024 13:11-0400 Body weight 73.02 kg [facility] 12-28-2024 13:11-0400 Diastolic blood pressure 60 mm[Hg] [facility] 12-28-2024 13:11-0400 Heart rate 83 /min Tressa Bobby [facility] 12-28-2024 13:11-0400 Systolic blood pressure 115 mm[Hg] Tressa Rosales [facility] 09-27-2024 08:22-0400 Body height 157.48 cm Didi Tai LOAN APPROVER-C Work Phone: [facility] 09-27-2024 08:22-0400 Body mass index (BMI) [Ratio] 29.4 kg/m2 Didi Lujan LOAN APPROVER-C Work Phone: [facility] 09-27-2024 08:22-0400 Body weight 73.02 kg Didi Lujan LOAN APPROVER-C Work Phone: [facility] 09-27-2024 08:22-0400 Diastolic blood pressure 72 mm[Hg] Didi Lujan LOAN APPROVER-C Work Phone: [facility] 09-27-2024 08:22-0400 Heart rate 72 /min Didi Lujan LOAN APPROVER-C Work Phone: [facility] 09-27-2024 08:22-0400 Respiratory rate 16 /min Didi Lujan LOAN APPROVER-C Work Phone: [facility] 09-27-2024 08:22-0400 Systolic blood pressure 125 mm[Hg] Didi Lujan LOAN APPROVER-C Work Phone: [facility] 07-29-2024 14:17-0400 Diastolic blood pressure 65 mm[Hg] Armen Madison MD Work Phone: [facility] 07-29-2024 14:17-0400 Heart rate 68 /min Armen Madison MD Work Phone: [facility] 07-29-2024 14:17-0400 Systolic blood pressure 110 mm[Hg] Armen Madison MD Work Phone: [facility] 06-28-2024 07:42-0400 Body height 157.5 cm Em Sheldon Work Phone: [facility] 06-28-2024 07:42-0400 Body mass index (BMI) [Ratio] 28.42 kg/m2 Em Flynn APRN.[employer]OELACE TIPPING MACHINE OPERATOR Work Phone: [facility] 06-28-2024 07:42-0400 Body weight 70.49 kg Em Flynn APRN.CN P Work Phone: [facility] Comment on above: Per pt. Did not get weighed today 06-28-2024 07:42-0400 Diastolic blood pressure 74 mm[Hg] Em Flynn APRN.SHOELACE TIPPING MACHINE OPERATOR Work Phone: [facility] 06-28-2024 07:42-0400 Heart rate 76 /min Em Flynn APRN.CN P Work Phone: [facility] 06-28-2024 07:42-0400 SaO2% (BldA) [Mass fraction] 99 % Em Flynn APRN.SHOELACE TIPPING MACHINE OPERATOR Work Phone: [facility] 06-28-2024 07:42-0400 Systolic blood pressure 112 mm[Hg] Em Flynn APRN.SHOELACE TIPPING MACHINE OPERATOR Work Phone: [facility] 03-16-2024 08:37-0500 Body height 157.48 cm Alexandra Arreguin LOAN APPROVER-C Work Phone: [facility] 03-16-2024 08:37-0500 Body mass index (BMI) [Ratio] 28.7 kg/m2 Alexandra Arreguin LOAN APPROVER-C Work Phone: [facility] 03-16-2024 08:37-0500 Body weight 71.21 kg Alexandra Arregiun LOAN APPROVER-C Work Phone: [facility] 03-16-2024 08:37-0500 Diastolic blood pressure 62 mm[Hg] Alexandra Arreguin LOAN APPROVER-C Work Phone: [facility] 03-16-2024 08:37-0500 Heart rate 59 /min Alexandra Arreguin LOAN APPROVER-C Work Phone: [facility] 03-16-2024 08:37-0500 Respiratory rate 18 /min Alexandra Rodríguez LOAN APPROVER-C Work Phone: [facility] 03-16-2024 08:37-0500 Systolic blood pressure 97 mm[Hg] Alexandrajenny MccollumArreguin LOAN APPROVER-C Work Phone: [facility] 12-31-2023 09:11-0400 Body height 157.5 cm Em Flynn APRN.CN P Work Phone: [facility] 12-31-2023 09:11-0400 SaO2% (BldA) [Mass fraction] 99 % Em Flynn APRN.SHOELACE TIPPING MACHINE OPERATOR Work Phone: [facility] 09-29-2023 08:59-0400 Body height 157.5 cm Em Flynn APRN.CN P Work Phone: [facility] 09-29-2023 08:59-0400 Body mass index (BMI) [Ratio] 29.81 kg/m2 Em Flynn APRN.SHOELACE TIPPING MACHINE OPERATOR Work Phone: [facility] 09-29-2023 08:59-0400 Body weight 73.94 kg Em Flynn APRN.CN P Work Phone: [facility] Comment on above: Per pt. Did not get weighed 09-29-2023 08:59-0400 Diastolic blood pressure 69 mm[Hg] Em Flynn APRN.SHOELACE TIPPING MACHINE OPERATOR Work Phone: [facility] 09-29-2023 08:59-0400 Heart rate 58 /min Em Flynn APRN.CN P Work Phone: [facility] 09-29-2023 08:59-0400 SaO2% (BldA) [Mass fraction] 98 % Em Flynn APRN.SHOELACE TIPPING MACHINE OPERATOR Work Phone: [facility] 09-29-2023 08:59-0400 Systolic blood pressure 106 mm[Hg] Em Flynn APRN.SHOELACE TIPPING MACHINE OPERATOR Work Phone: [facility] 08-27-2023 13:39-0400 Body height 157.5 cm Stephan Sheehan PA-C Work Phone: [facility] 08-27-2023 13:39-0400 Body mass index (BMI) [Ratio] 30.12 kg/m2 Stephan Sheehan PA-C Work Phone: [facility] 08-27-2023 13:39-0400 Body weight 74.7 kg Stephan Sheehan PA-C Work Phone: [facility] 08-27-2023 13:39-0400 Diastolic blood pressure 57 mm[Hg] Stephan Sheehan PA-C Work Phone: [facility] 08-27-2023 13:39-0400 Heart rate 60 /min Stephan Sheehan PA-C Work Phone: [facility] 08-27-2023 13:39-0400 Respiratory rate 18 /min Stephan Sheehan PA-C Work Phone: [facility] 08-27-2023 13:39-0400 SaO2% (BldA) [Mass fraction] 100 % Stephan Sheehan PA-C Work Phone: [facility] 08-27-2023 13:39-0400 Systolic blood pressure 130 mm[Hg] Stephan Sheehan PA-C Work Phone: [facility] 07-06-2023 08:13-0400 Body weight 73.94 kg Em Flynn APRN.CN P Work Phone: [facility] 07-06-2023 08:13-0400 Diastolic blood pressure 82 mm[Hg] Em Flynn APRN.SHOELACE TIPPING MACHINE OPERATOR Work Phone: [facility] 07-06-2023 08:13-0400 Heart rate 72 /min Em Flynn APRN.CN P Work Phone: [facility] 07-06-2023 08:13-0400 SaO2% (BldA) [Mass fraction] 99 % Em Flynn APRN.SHOELACE TIPPING MACHINE OPERATOR Work Phone: [facility] 07-06-2023 08:13-0400 Systolic blood pressure 128 mm[Hg] Em Flynn APRN.SHOELACE TIPPING MACHINE OPERATOR Work Phone: [facility] 05-01-2023 18:05-0500 Diastolic blood pressure 69 mm[Hg] LOAN APPROVER-C Alexandra Arreguin LOAN APPROVER Work Phone: [facility] 05-01-2023 18:05-0500 Heart rate 67 /min LOAN APPROVER-C Alexandra Arreguin LOAN APPROVER Work Phone: [facility] 05-01-2023 18:05-0500 Respiratory rate 16 /min LOAN APPROVER-C Alexandra Arreguin LOAN APPROVER Work Phone: [facility] 05-01-2023 18:05-0500 SaO2% (BldA) [Mass fraction] 98 % LOAN APPROVER-C Alexandra Arreguin LOAN APPROVER Work Phone: [facility] 05-01-2023 18:05-0500 Systolic blood pressure 120 mm[Hg] LOAN APPROVER-C Alexandra Arreguin LOAN APPROVER Work Phone: [facility] 05-01-2023 13:26-0500 Body height 157.48 cm LOAN APPROVER-C Alexandra Arreguin LOAN APPROVER Work Phone: [facility] 05-01-2023 13:26-0500 Body mass index (BMI) [Ratio] 30.2 kg/m2 LOAN APPROVER-C Alexandra Arreguin LOAN APPROVER Work Phone: [facility] 05-01-2023 13:26-0500 Body temperature 98.4 [degF] LOAN APPROVER-C Alexandra Arreguin LOAN APPROVER Work Phone: [facility] 05-01-2023 13:26-0500 Body weight 74.84 kg LOAN APPROVER-C Alexandra Arreguin LOAN APPROVER Work Phone: [facility] 02-06-2023 13:59-0400 Body temperature 98.6 [degF] LOAN APPROVER-C Alexandra Arreguin LOAN APPROVER Work Phone: [facility] 02-06-2023 13:59-0400 Diastolic blood pressure 52 mm[Hg] LOAN APPROVER-C Alexandra Arreguin LOAN APPROVER Work Phone: [facility] 02-06-2023 13:59-0400 Heart rate 73 /min LOAN APPROVER-C Alexandra Arreguin LOAN APPROVER Work Phone: [facility] 02-06-2023 13:59-0400 Respiratory rate 16 /min LOAN APPROVER-C Alexandra Arreguin LOAN APPROVER Work Phone: 8(842)473-383128 [address] 02-06-2023 13:59-0400 SaO2% (BldA) [Mass fraction] 100 % LOAN APPROVER-C Alexandra Arreguin LOAN APPROVER Work Phone: 0(704)240-924266 [place] [address] 02-06-2023 13:59-0400 Systolic blood pressure 92 mm[Hg] LOAN APPROVER-C Alexandra Arreguin LOAN APPROVER Work Phone: 0(741)268-221866 [place] [address] 02-06-2023 05:46-0400 Body mass index (BMI) [Ratio] 31.1 kg/m2 LOAN APPROVER-C Alexandra Arreguin LOAN APPROVER Work Phone: 7(321)522-680166 [place] [address] 02-06-2023 05:46-0400 Body weight 76.6 kg LOAN APPROVER-C Alexandra Arreguin LOAN APPROVER Work Phone: 1(711)857-342866 [place] [address] 02-02-2023 11:48-0400 Body height 157.48 cm LOAN APPROVER-C Alexandra Arreguin LOAN APPROVER Work Phone: 5(141)919-683228 [address] 02-01-2023 13:44-0400 Body height 157.48 cm LOAN APPROVER-C Alexandra Arreguin LOAN APPROVER Work Phone: 4(974)963-350466 [place] [address] 02-01-2023 13:44-0400 Body mass index (BMI) [Ratio] 31.1 kg/m2 LOAN APPROVER-C Alexandra Arreguin LOAN APPROVER Work Phone: 8(377)666-513266 [place] [address] 02-01-2023 13:44-0400 Body temperature 98.4 [degF] LOAN APPROVER-C Alexandra Arreguin LOAN APPROVER Work Phone: [facility] 02-01-2023 13:44-0400 Body weight 77.1 kg LOAN APPROVER-C Alexandra Arreguin LOAN APPROVER Work Phone: 8(667)916-575566 [place] [address] 02-01-2023 13:44-0400 Diastolic blood pressure 79 mm[Hg] LOAN APPROVER-C Alexandra Arreguin LOAN APPROVER Work Phone: [facility] 02-01-2023 13:44-0400 Heart rate 77 /min LOAN APPROVER-C Alexandra Arreguin LOAN APPROVER Work Phone: [facility] 02-01-2023 13:44-0400 Respiratory rate 20 /min LOAN APPROVER-C Alexandra Arreguin LOAN APPROVER Work Phone: [facility] 02-01-2023 13:44-0400 SaO2% (BldA) [Mass fraction] 99 % LOAN APPROVER-C Alexandra Arreguin LOAN APPROVER Work Phone: [facility] 02-01-2023 13:44-0400 Systolic blood pressure 165 mm[Hg] LOAN APPROVER-C Alexandra Arreguin LOAN APPROVER Work Phone: [facility] 01-20-2023 14:48-0400 Body height 157.5 cm Em Flynn APRN.CN P Work Phone: [facility] 01-20-2023 14:48-0400 Body weight 70.76 kg Em Flynn APRN.CN P Work Phone: [facility] 01-20-2023 14:48-0400 SaO2% (BldA) [Mass fraction] 100 % Em Flynn APRN.SHOELACE TIPPING MACHINE OPERATOR Work Phone: [facility] 12-29-2022 13:39-0400 Body mass index (BMI) [Ratio] 28 kg/m2 LOAN APPROVER-C Alexandra Arreguin LOAN APPROVER Work Phone: [facility] 12-29-2022 13:39-0400 Body weight 69.39 kg LOAN APPROVER-C Alexandra Arreguin LOAN APPROVER Work Phone: [facility] 12-29-2022 13:39-0400 Diastolic blood pressure 78 mm[Hg] LOAN APPROVER-C Alexandra Arreguin LOAN APPROVER Work Phone: [facility] 12-29-2022 13:39-0400 Heart rate 60 /min LOAN APPROVER-C Alexandra Arreguin LOAN APPROVER Work Phone: [facility] 12-29-2022 13:39-0400 Respiratory rate 16 /min LOAN APPROVER-C Alexandra Arreguin LOAN APPROVER Work Phone: [facility] 12-29-2022 13:39-0400 Systolic blood pressure 152 mm[Hg] LOAN APPROVER-C Alexandra Arreguin LOAN APPROVER Work Phone: [facility] 10-09-2022 12:48-0400 Body height 157.5 cm Linden Flynn MD Work Phone: [facility] 10-09-2022 12:48-0400 Body weight 68.63 kg Linden Flynn MD Work Phone: [facility] 10-09-2022 12:48-0400 SaO2% (BldA) [Mass fraction] 99 % Linden Flynn MD Work Phone: [facility] 2022 14:59-0500 Body height 157.48 cm [facility] Work Phone: 2022 14:59-0500 Body mass index (BMI) [Ratio] 25.2 kg/m2 [facility] Work Phone: 2022 14:59-0500 Body temperature 97.7 [degF] [facility] Work Phone: 2022 14:59-0500 Body weight 62.59 kg [facility] Work Phone: 2022 14:59-0500 Diastolic blood pressure 70 mm[Hg] [facility] Work Phone: 2022 14:59-0500 Heart rate 138 /min [facility] Work Phone: 2022 14:59-0500 Respiratory rate 18 /min [facility] Work Phone: 2022 14:59-0500 SaO2% (BldA) [Mass fraction] 100 % [facility] Work Phone: 2022 14:59-0500 Systolic blood pressure 130 mm[Hg] [facility] Work Phone: 02-24-2022 16:15-0500 Body mass index (BMI) [Ratio] 25.6 kg/m2 [facility] Work Phone: 02-24-2022 16:15-0500 Body temperature 97.5 [degF] [facility] Work Phone: 02-24-2022 16:15-0500 Body weight 63.5 kg [facility] Work Phone: 02-24-2022 16:15-0500 Diastolic blood pressure 60 mm[Hg] [facility] Work Phone: 02-24-2022 16:15-0500 Heart rate 85 /min [facility] Work Phone: 02-24-2022 16:15-0500 Respiratory rate 18 /min [facility] Work Phone: 02-24-2022 16:15-0500 SaO2% (BldA) [Mass fraction] 100 % [facility] Work Phone: 02-24-2022 16:15-0500 Systolic blood pressure 122 mm[Hg] [facility] Work Phone: Encounters Encounter Date Encounter Type Care Provider Facility Start: 02-15-2025 End: 02-15-[facility] Start: 01-25-2025 Non-patient / Non-visit Dr. Estella Kelly MD [facility] Work Phone: Start: 01-24-2025 Non-patient / Non-visit Dr. Estella Kelly MD -[facility] Work Phone: Start: 01-23-2025 Non-patient / Non-visit Dr. Estella Kelly MD -[facility] Work Phone: Start: 01-22-2025 Non-patient / Non-visit Dr. Estella Kelly MD -[facility] Work Phone: Start: 01-21-2025 Non-patient / Non-visit Dr. Estella Kelly MD -[facility] Work Phone: Start: 01-20-2025 Non-patient / Non-visit Dr. Danielle anderson MD -[facility] Work Phone: Start: 01-20-2025 Non-patient / Non-visit Dr. Zeus Martel DO -[facility] Work Phone: Start: 01-20-2025 ambulatory Davian Kelly Fac ility:[facility] Start: 01-20-2025 End: 01-25-2025 Evaluation and management of inpatient Dr. Davian Kelly MD -[facility] Work Phone: Start: 01-19-2025 End: 01-20-2025 Emergency department patient visit ALEXANDRA ARREGUIN Facility:[facility] Start: 12-28-2024 End: 12-28-[address] Alexandria Dejesus MD -[facility] Work Phone: Start: 12-28-2024 End: 12-28-2024 ambulatory Tressa HALL -[facility] Start: 11-07-2024 ambulatory Danielle Vernon Facility:[facility] Start: 11-07-2024 Non-patient / Non-visit Dr. Danielle anderson MD -[facility] Start: 11-03-2024 ambulatory Danielle Vernon Facility:[facility] Start: 11-03-2024 Non-patient / Non-visit Dr. Danielle anderson MD -[facility] Start: 11-03-2024 End: 11-03-2024 ambulatory Tressa HALL -[facility] Start: 11-03-2024 End: 11-03-[address] Danielle Vernon MD -[facility] Work Phone: Start: 11-03-2024 End: 11-03-2024 ambulatory Danielle Vernon Facility:[facility] Start: 09-27-2024 End: 09-27-[address] Danielle Vernon MD -[facility] Work Phone: Start: 09-27-2024 End: 09-27-2024 ambulatory Didi Lujan NP-C Work Phone: [facility] Work Phone: Start: 07-29-2024 End: 07-29-2024 ambulatory ALEXANDRA Anay ARREGUIN Facility:[facility] Start: 07-29-2024 End: 07-29-2024 Office outpatient new 30 minutes Armen Madison MD Work Phone: [facility] Comment on above: Numbness and tinglin g of both feet Start: 07-29-2024 End: 07-29-2024 ambulatory ALEXANDRA Anay ARREGUIN Facility:[facility] Start: 06-28-2024 End: 06-28-2024 ambulatory ALEXANDRA Anay ARREGUIN Facility:[facility] Start: 06-28-2024 End: 06-28-2024 Patient encounter procedure Em Flynn APRN.CNP Work Phone: Neurology Comment on above: Dysphagia, unspecifi ed type (Primary Dx); 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 Danielle Vernon MD -[facility] Work Phone: Start: 03-16-2024 End: 03-16-2024 ambulatory Danielle Vernon Facility:[facility] Start: 12-31-2023 End: 12-31-2023 Patient encounter procedure Em Flynn APRN.SHOELACE TIPPING MACHINE OPERATOR Work Phone: Neurology Comment on above: Dysphagia, unspecifi ed type (Primary Dx); Parkinson's disease without dyskinesia or fluctuating manifestations (HCC); Orthostatic hypotension Start: 11-20-2023 Documentation procedure Mammog dae Coordinator [facility] Start: 11-20-2023 Letter encounter Mammography Coordinator [facility] Start: 11-20-2023 End: 11-20-2023 Subsequent hospital visit by physician Screening Ultrasound Main Work Phone: Mammography Start: 10-21-2023 Telephone encounter Stephan juan PA-C Work Phone: [facility] Comment on above: Billiard Table Repairer - O ther Start: 10-16-2023 Telephone encounter Yury Jasso MD Work Phone: Orthopaedics Comment on above: Patient Update; Radha ent Question; Orders Start: 10-02-2023 End: 10-02-2023 Patient encounter procedure Yury Jasso MD Work Phone: Orthopedics Comment on above: Acute pain of left s moisesulder Start: 09-29-2023 End: 09-29-2023 Patient encounter procedure Em Flynn APRN.SHOELACE TIPPING MACHINE OPERATOR Work Phone: Neurology Comment on above: Parkinson's disease without dyskinesia or fluctuating manifestations (HCC) (Primary Dx); Orthostatic hypotension; Hallucinations; Dysphagia, unspecified type Start: 09-29-2023 ambulatory UNKNOWN PROVIDER Facili ty:[facility] Start: 09-29-2023 End: 09-29-2023 Subsequent hospital visit by physician [facility] Work Phone: Radiology Comment on above: Chronic left shoulde r pain [M25.512, G89.29] Start: 09-23-2023 ambulatory DIDI LUJAN Facilit y:[facility] Start: 09-23-2023 End: 09-23-2023 Subsequent hospital visit by physician Screen/Diagnostic Mammo [facility] Work Phone: Mammography Comment on above: Inconclusive mammogr am [R92.2] Start: 09-14-2023 Orders Only Yury Jasso MD Work Phone: Orthopedics Comment on above: Chronic left shoulde r pain (Primary Dx) Start: 09-02-2023 Telephone encounter Stephan juan PA-C Work Phone: [facility] Start: 08-27-2023 End: 08-27-2023 Patient encounter procedure Stephan Sheehan PA-C Work Phone: [facility] Comment on above: Acute pain of left s houlder (Primary Dx); Protrusion of cervical intervertebral disc; Pain in left elbow Start: 08-14-2023 Documentation procedure Mammog dae Coordinator [facility] Start: 08-14-2023 Letter encounter Mammography Coordinator [facility] Start: 08-13-2023 ambulatory DIDI LJUAN Facilit y:[facility] Start: 08-13-2023 End: 08-13-2023 Subsequent hospital visit by physician Screen/Diagnostic Mammo [facility] Work Phone: Mammography Comment on above: Encounter for screen ing mammogram for malignant neoplasm of breast [Z12.31] Asymptomatic [place] [Z78.0] Start: 08-03-2023 Telephone encounter Em villarreal APRN.SHOELACE TIPPING MACHINE OPERATOR Work Phone: Neurology Comment on above: Results Start: 07-29-2023 End: 07-29-2023 Subsequent hospital visit by physician [facility] Start: 07-06-2023 End: 07-06-2023 Patient encounter procedure Em Flynn APRN.SHOELACE TIPPING MACHINE OPERATOR Work Phone: Neurology Comment on above: Parkinson's disease without dyskinesia or fluctuating manifestations (HCC) (Primary Dx); Orthostatic hypotension; Dysphagia, unspecified type; Left arm pain; Numbness and tingling in left arm Start: 05-01-2023 End: 05-01-2023 Emergency department patient visit LOAN APPROVER-C Alexandra Arreguin LOAN APPROVER [facility] Start: 02-06-2023 Non-patient / Non-visit LOAN APPROVER-C D ora Arreguin LOAN APPROVER Work Phone: [facility] Work Phone: Start: 02-05-2023 Non-patient / Non-visit LOAN APPROVER-C D ora Arreguin LOAN APPROVER Work Phone: [facility] Work Phone: Start: 02-04-2023 Non-patient / Non-visit LOAN APPROVER-C D ora Arreguin LOAN APPROVER Work Phone: [facility] Work Phone: Start: 02-03-2023 Non-patient / Non-visit LOAN APPROVER-C D ora Arreguin LOAN APPROVER Work Phone: [facility] Work Phone: Start: 02-02-2023 Non-patient / Non-visit LOAN APPROVER-C D ora Arreguin LOAN APPROVER Work Phone: [facility] Work Phone: Start: 02-01-2023 End: 02-06-2023 Evaluation and management of inpatient LOAN APPROVER-C Alexandra Arreguin LOAN APPROVER [facility] Work Phone: Start: 01-20-2023 End: 01-20-2023 Patient encounter procedure Em Flynn APRN.SHOELACE TIPPING MACHINE OPERATOR Work Phone: Neurology Comment on above: Parkinson's disease without dyskinesia or fluctuating manifestations (Primary Dx); Hallucinations; Orthostatic hypotension; Insomnia, unspecified type Start: 01-05-2023 End: 01-05-2023 Patient encounter procedure LOAN APPROVER-C Alexandra Arreguin LOAN APPROVER Work Phone: [facility] Work Phone: Start: 12-29-2022 End: 12-29-2022 Patient encounter procedure LOAN APPROVER-C Alexandra Arreguin NP Work Phone: [facility] Work Phone: Start: 10-09-2022 End: [...] Performing Clinician Start: 01-25-2025 [facility] Start: 01-24-2025 Estimated creatinine clearance Tressadennis Rosales OLS Start: 01-23-2025 Total iron binding c apacity measurement Tressajenny Rosales OLS Start: 01-20-2025 Plain X-ray of hip Shob Bobby OLS Start: 01-20-2025 Fluoroscopic guidance S [facility] Bobby OLS Start: 01-20-2025 [facility] Start: 01-20-2025 Prosthetic uncemente d hemiarthroplasty of hip [facility] Bobby OLS Start: 01-20-2025 Urnls dip stick/tabl et reagent auto microscopy Tressajenny Rosales OLS Start: 01-20-2025 Serum inorganic phos phate measurement Tressajenny Rosales OLS Start: 11-03-2024 Cardiovascular stres s test using pharmacologic stress agent Tressa Rosales OLS Start: 06-03-2024 Radionuclide study of abdomen Alexandra Arreguin LOAN APPROVER-C Work Phone: Start: 10-02-2023 Arthrocentesis aspir &/inj major jt/bursa w/o us Yury Jasso MD Work Phone: Start: 09-29-2023 Radex shoulder compl ete minimum 2 views Claudia Manuel PA-C Work Phone: Start: 09-23-2023 Us breast uni real t jason with image limited [facility] Provider Start: 07-29-2023 Mri spinal canal cer vical w/o contrast matrl Em Flynn LIMO DRIVERJorgitoSHOELACE TIPPING MACHINE OPERATOR Work Phone: Start: 05-01-2023 CT cervical spine wi thout contrast LOAN APPROVER-C Alexandra Arreguin LOAN APPROVER Work Phone: Start: 05-01-2023 CT of head without contrast LOAN APPROVER-C Alexandra Arreguin LOAN APPROVER Work Phone: Start: 02-06-2023 Viral antigen assay LOAN APPROVER- C Alexandra Arreguin LOAN APPROVER Work Phone: Start: 02-02-2023 Plain X-ray of hip LOAN APPROVER-C Alexandra Arreguin LOAN APPROVER Work Phone: Start: 02-02-2023 Open reduction of fr acture of femur with internal fixation LOAN APPROVER-C Alexandra Arreguin LOAN APPROVER Work Phone: Start: 02-02-2023 Fluoroscopic guidance N P-C Alexandra Arreguin LOAN APPROVER Work Phone: Start: 02-01-2023 Plain x-ray of elbow LOAN APPROVER -C Alexandra Arreguin LOAN APPROVER Work Phone: Start: 02-01-2023 CT of head without contrast LOAN APPROVER-C Alexandra Arreguin LOAN APPROVER Work Phone: Start: 02-01-2023 Plain chest X-ray LOAN APPROVER-C Alexandra Arreguin LOAN APPROVER Work Phone: Start: 02-01-2023 Plain X-ray of femur LOAN APPROVER -C Alexandra Arreguin LOAN APPROVER Work Phone: Plan of Treatment Date Care Activity Detail Author Start: 01-25-2025 Patient discharge [facility] Start: 01-20-2025 Provision of overbed trapeze [facility] Start: 01-20-2025 End: 01-20-2025 [facility] Start: 01-20-2025 Ambulation therapy management [facility] Start: 01-20-2025 Application of device [facility] Start: 01-20-2025 Assessment of risk of venous thromboembolism [facility] Start: 01-20-2025 Catheterization of vein [facility] Start: 01-20-2025 Exercises [facility] Start: 01-20-2025 Following clinical pathway protocol [facility] Start: 01-20-2025 Introduction of urinary catheter [facility] Start: 01-20-2025 Measuring intake and output [facility] Start: 01-20-2025 Neurovascular assessment [facility] Start: 01-20-2025 Patient education [facility] Start: 01-20-2025 Procedure discontinued [facility] Start: 01-20-2025 Provision of activity privileges [facility] Start: 01-20-2025 Recommendation to continue with treatment [facility] Start: 01-20-2025 Referral for physical therapy [facility] Start: 01-20-2025 Referral to occupational therapist [facility] Start: 01-20-2025 Vital signs measurements [facility] Start: 01-20-2025 Wound care [facility] Start: 01-20-2025 Care planning and problem solving actions [facility] Start: 01-20-2025 [facility] Start: 01-20-2025 Application of intermittent pneumatic compression device [facility] Start: 01-20-2025 Following clinical pathway protocol [facility] Start: 01-20-2025 Oxygen therapy [facility] Start: 01-20-2025 Referral to service [facility] Start: 01-20-2025 Admission procedure [facility] Start: 01-20-2025 Assessment of risk of venous thromboembolism [facility] Start: 01-20-2025 Insertion of catheter into peripheral vein [facility] Start: 01-20-2025 Providing care according to standard [facility] Start: 01-20-2025 Consultation [facility] Start: 01-20-2025 Documentation procedure [facility] Start: 01-20-2025 Measuring intake and output [facility] Start: 01-20-2025 End: 01-20-2025 [facility] Start: 12-29-2024 End: 12-29-2024 Patient encounter procedure 12/29/2024 10:00 AM EDT Office Visit Neurology [address] [address] Em Flynn APRN.SHOELACE TIPPING MACHINE OPERATOR [address] [address] 6 month follow up Neurology Comment on above: 6 month follow up Start: 07-29-2024 End: 07-29-2024 Patient encounter procedure 07/29/2024 3:00 PM EDT Office Visit Neuromuscular [facility] [address] [place] [address] Armen Madison MD [address] [place] [address] 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 [facility] Comment on above: 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 Start: 07-29-2024 End: 10-28-2024 Cobalamin (Vitamin B12) [Mass/volume] in Serum or Plasma [facility] Comment on above: Expected: 07/29/2024, Expires: Start: 07-29-2024 End: 10-28-2024 Folate [Mass/volume] in Serum or Plasma [facility] Comment on above: Expected: 07/29/2024, Expires: Start: 07-29-2024 End: 10-28-2024 Hemoglobin A1c in Blood [facility] Work Phone: Comment on above: Expected: 07/29/2024, Expires: Start: 07-29-2024 End: 10-28-2024 IMMUNOFIXATION SCREEN, SERUM [facility] Comment on above: Expected: 07/29/2024, Expires: Start: 07-29-2024 End: 10-28-2024 KAPPA/ERASMO,KATE,SER [facility] Comment on above: Expected: 07/29/2024, Expires: Start: 07-29-2024 End: 10-28-2024 Methylmalonate [Moles/volume] in Serum or Plasma [facility] Comment on above: Expected: 07/29/2024, Expires: Start: 07-29-2024 End: 10-28-2024 VITAMIN B1 (THIAMINE), WHOLE BLOOD [facility] Comment on above: Expected: 07/29/2024, Expires: Start: 06-02-2024 Urine microalbumin profile DTaP,Tdap,Td Vaccine (2 - Td or Tdap) [facility] Start: 04-13-2024 Advance Directive Discussion Advance Directive Discussion [facility] Start: 04-07-2024 End: 04-07-2024 Patient encounter procedure 04/07/2024 10:00 AM EST Office Visit Neurology [address] [address] Em Flynn, LIMO DRIVER.SHOELACE TIPPING MACHINE OPERATOR [address] [place] [address] 3 month follow up Neurology Comment on above: 3 month follow up Start: 12-31-2023 End: 12-31-2023 Patient encounter procedure 12/31/2023 9:00 AM EDT Office Visit Neurology [address] [address] Em Flynn, LIMO DRIVER.SHOELACE TIPPING MACHINE OPERATOR [address] [place] [address] 3 month follow up Neurology Comment on above: 3 month follow up Start: 12-13-2023 Covid-19 Vaccine ( season) Covid-19 Vaccine ( season) [facility] Start: 12-13-2023 Covid-19 Vaccine ( season) Covid-19 Vaccine ( season) [facility] Start: 12-13-2023 Influenza vaccination [facility] Start: 11-20-2023 End: 11-20-2023 Patient encounter procedure 11/20/2023 7:45 AM EDT Appointment Mammography [address] [address] INCONCLUSIVE MAMMOGRAM - ORDER SCANNED IN [facility] 09/24/23 Mammography Comment on above: INCONCLUSIVE MAMMOGRAM - ORDER SCANNED I N [facility] 09/24/23 Start: 10-02-2023 End: 10-02-2023 Patient encounter procedure Orthopedics Comment on above: Acute pain of left shoulder [M25.512] L shoulder Start: 09-29-2023 End: 09-29-2023 Patient encounter procedure 09/29/2023 9:00 AM EDT Office Visit Neurology [address] [id number] Em Flynn, LIMO DRIVER.SHOELACE TIPPING MACHINE OPERATOR [address] [address] Return in about 3 months (around 10/06/2023). Neurology Comment on above: Return in about 3 months (around 10/06/19). Start: 09-23-2023 End: 09-23-2023 Patient encounter procedure 09/23/2023 9:20 AM EDT Appointment Mammography [address] [place] [address] Franki breast us, left breast diagnostic mammogram Mammography Comment on above: Franki breast us, left breast diagnostic m ammogram Start: 09-23-2023 Subsequent hospital visit by physician 09/23/2023 9:20 AM EDT Hospital Encounter Mammography [address] [place] [address] Inconclusive mammogram [R92.2] Mammography Comment on above: Inconclusive mammogram [R92.2] Start: 08-27-2023 End: 08-27-2023 Patient encounter procedure 08/27/2023 1:40 PM EDT Office Visit [facility] [address] [address] Stephan Sheehan PA-C [address] [place], [place] [id number] 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] [facility] Comment on above: Protrusion of cervical intervertebral di sc [M50.20] Start: 08-13-2023 End: 08-13-2023 Patient encounter procedure Mammography Comment on above: MAMMOGRAM SCREENING BILATERAL DEXA BONE DENSITY Start: 05-01-2023 [facility] Start: 04-13-2023 Advance Directive Discussion Advance Directive Discussion [facility] Start: 04-13-2023 Behavioral Health Screening Behavioral Health Screening [facility] Start: 04-13-2023 Depression Assessment Depression Assessment [facility] Start: 02-09-2023 [facility] Start: 02-02-2023 Neurovascular assessment [facility] Start: 02-02-2023 Patient education [facility] Start: 02-02-2023 Provision of activity privileges [facility] Start: 02-02-2023 Recommendation to continue with treatment [facility] Start: 02-02-2023 Referral to occupational therapist [facility] Start: 02-02-2023 Referral to service [facility] Start: 02-02-2023 Vital signs measurements [facility] Start: 02-02-2023 [facility]ound care [facility] Start: 02-01-2023 Neurovascular assessment [facility] Start: 02-01-2023 Providing care according to standard [facility] Start: 12-12-2022 Covid-19 Vaccine ( season) Covid-19 Vaccine ( season) [facility] Start: 12-12-2022 Influenza vaccination [facility] Start: 04-13-2022 ADVANCE DIRECTIVE DISCUSSION ADVANCE DIRECTIVE DISCUSSION [facility] Start: 04-13-2022 DEPRESSION ASSESSMENT DEPRESSION ASSESSMENT [facility] Start: 01-07-2019 Shingrix Vaccine (2 of 2) Shingrix Vaccine (2 of 2) [facility] Start: 2016 RSV Vaccine (1 - 1-dose 75+ series) RSV Vaccine (1 - 1-dose 75+ series) [facility] Start: 2006 BONE DENSITY BONE DENSITY [facility] Start: 2006 Bone Density Screening Bone Density Screening [facility] Start: 2006 Pneumococcal Vaccine: 65+ (1 - PCV) Pneumococcal Vaccine: 65+ (1 - PCV) [facility] Start: 2006 Pneumococcal Vaccine: 65+ (1 of 1 - PCV) Pneumococcal Vaccine: 65+ (1 of 1 - PCV) [facility] Start: 2006 PNEUMOCOCCAL: 65+ (1 - PCV) PNEUMOCOCCAL: 65+ (1 - PCV) [facility] Start: 2006 Screening for osteoporosis Bone Density Screening [facility] Start: 2001 RSV Vaccine (1 - 1-dose 60+ series) RSV Vaccine (1 - 1-dose 60+ series) [facility] Start: 1991 SHINGRIX VACCINE (1 of 2) SHINGRIX VACCINE (1 of 2) [facility] Start: 1986 DIABETES SCREEN DIABETES SCREEN [facility] Start: 1986 Diabetes Screening Diabetes Screening [facility] Start: 1960 Urine microalbumin profile [facility] Start: 1959 Anxiety Screening Anxiety Screening [facility] Start: 1959 Depression Screening Depression Screening [facility] Start: 1959 Hepatitis B surface antibody level LDL CHOLESTEROL [facility] Start: 1941 COVID-19 VACCINE (#1) COVID-19 VACCINE (#1) [facility] Hematocrit [Volume Fraction] of Blood [place] [...] Routine 1 Occurrences starting 07/06/2023 until 08/04/2024 [facility] Work Phone: Comment on above: 1 Occurrences starting 07/06/2023 until 08/04/2024 Neutrophil count [facility] Neutrophil count [facility] Neutrophil percent differential count [facility] Neutrophil percent differential count [facility] Patient Education [facility] Work Phone: Patient referral [facility] Work Phone: Platelets [#/volume] in Blood [place] [...] left shoulder pain 1 Occurrences starting 09/15/2023 [facility] Work Phone: Comment on above: 1 Occurrences starting 09/15/2023 [facility] Payers Date Payer Category Payer Self-pay 2024 Medicaid [id number] 2023 Medicaid [id number] 2023 Medicare (Managed Care) [facility] [id number] 2023 Medicare [id number] 2022 Medicare [id number]. [id number] Unknown [id number] Unknown [id number] 2.16.840.1.974483.3.579.2. 462 Unknown [id number] 2.16.840.1.882263.3.579.2. 462 Unknown [id number] 2.16.840.1.772456.3.579.2. 462 Unknown [id number] 2.16.840.1.808770.3.579.2. 462 Unknown [id number] 2.16.840.1.320687.3.579.2. 462 Unknown [id number] 2.16.840.1.618457.3.579.2. 462 Unknown [id number] 2.16.840.1.490825.3.579.2. 462 Unknown [id number] 2.16.840.1.454492.3.579.2. 462 Unknown [id number] 2.16.840.1.115946.3.579.2. 462 Unknown [id number] 2.16.840.1.120412.3.579.2. 462 Unknown [id number] 2.16.840.1.285304.3.579.2. 462 Unknown [id number] 2.16.840.1.524871.3.579.2. 462 Unknown [id number] 2.16.840.1.061795.3.579.2. 462 Unknown [id number] 2.16.840.1.562939.3.579.2. 462 Unknown [id number] 2.16.840.1.002290.3.579.2. 462 Social History Date Type Detail Facility Start: 2022 End: 05-01-2023 Tobacco smoking status [facility] Unknown if ever smoked [facility] Start: 1940 Sex Assigned At Female [facility] Start: 10-09-2022 End: 01-20-2025 Tobacco smoking status DEIS Ex-smoker [facility] History of tobacco use Current smoker [facility] History of tobacco use Cigarette Smoker [facility] Start: 10-09-2022 End: 08-27-2023 Tobacco use and exposure Smokeless tobacco non-user [facility] Start: 10-09-2022 End: 07-29-2024 Alcohol intake Lifetime non-drinker (finding) [facility] Start: 1940 Sex Assigned At Not on file [facility] Start: 01-20-2023 End: 07-29-2024 History of Social function [facility] Start: 01-20-2023 End: 07-29-2024 Tobacco use panel [facility] National Score (1-100), lower number is lower risk 51 [facility] Start: 06-16-2024 [facility] NE[facility]: Highlighted row [facility] NEGATED: Highlighted rowStart: NINF History of tobacco use Passive smoker [facility] Medical Equipment Procedure Code Equipment Code Equipment Origin al Text Equipment Identifier Dates Primary uncemented hemiarthroplasty of hip ([id number]) Uncoated hip femur prosthesis, one-piece ()[id number] FDA Start: 01-20-2025 Primary uncemented hemiarthroplasty of hip Uncoated hip femur prosthesis, one-piece ()[id number] FDA Start: 01-20-2025 Primary uncemented hemiarthroplasty of hip (379516343) Coated hip femur prosthesis, modular ()[id number])[id number] FDA Start: 01-20-2025 ORIF, hip, using Gamma nail ([id number]) Orthopaedic bone screw, non-bioabsorbable, sterile ()[id number])K0 [id number] FDA Start: 02-02-2023 ORIF, hip, using Gamma nail (171602553) Femur nail, sterile ()[id number])[id number] [id number] FDA Start: 02-02-2023 ORIF, hip, using Gamma nail ([id number]) Orthopaedic bone screw, non-bioabsorbable, sterile ()[id number])[id number] [id number] FDA Start: 02-02-2023 Goals Date Patient Goal Desired Activity /State Functional Status Date Assessment Result Facility 01-25-2025 Functional status Ambulates [facility] Work Phone: 02-06-2023 Functional status Ambulates [facility] Work Phone: Mental Status Date Assessment Result Facility 01-25-2025 Cognitive function Voice/Name [facility] Work Phone: 02-06-2023 Cognitive function Voice/Name [facility] Work Phone: Clinical Notes 10-09-2022 to 01-25-2025 Note Date & Type Note Facility 01-25-2025 Note [facility] Medical Records Department [address] [place] [address] Discharge Summary 01/25/25 1449 MR#: [id number] Acct: [id number] Name: MONISHA COHN Rep #: [id number] : 1940 84 From: Davian Kelly MD PCP: Tressa Rosales Status:DIS IN [facility] Prov[facility] Date of Admission: 01/20/25 Primary Care [...] pulmonary hypertension, CAD; with RCA stent at [facility] in [place] (2009) and subsequent inferior wall ST elevation [place] s/p RCA stent with cardiogenic shock and [...] recently diagnosed COVID-19 who was transferred from [facility] after she was diagnosed with [...] LOC with her fall. Dr. North of [facility] spoke to Dr. Tijerina of the orthopedic service here (more content not included)... [facility] 01-25-2025 Consult note [facility] 01-25-2025 Consult note [facility] 01-25-2025 Consult note Note Date/Time January 25, 2025 1:00pm [facility] Medical Records Department [address] [place] [address] Counseling Note - Pharmacy 01/25/25 0938 MR#: [id number] Acct: [id number] Name: MONISHA COHN Rep #:[id number] 2 : 1940 84 From: Ephraim severino PCP: Tressa Rosales Status:ADM IN Y Location: [facility]3 VM103-0 Pharmacy [place] Med Reconciliation Pharmacy Service has performed discharge [...] Signature (if applicable): Date CC: ~ Signed [facility] Work Phone: 1(962) 235-618810-15-2025 Discharge summary Author Davian Kelly [facility] Note Date/Time January 25, 2025 9 :25am [facility] Medical Records Department [address] [place] [address] Transfer to [facility] MR#: [id number] Acct: [id number] Name: MONISHA COHN Rep #:[id number] 7 : 1940 84 From: Davian interiano MD PCP: Tressa Rosales Status:ADM IN Certification of patient admission REQUIRED AT TIME OF ADMISSION. I CERTIFY THAT POST-HOSPITAL F SERVICES ARE REQUIRED TO BE GIVEN ON AN IN-PATIENT BASIS BECAUSE OF THE ABOVE NAMED PATIENT'S NEED FOR LONGTERM CARE ON A CONTINUING BASIS FOR THE CONDITION(S) FOR WHICH HE/SHE WAS RECEIVING IN-PATIENT HOSPITAL SERVICES PRIOR TO HIS/HER TRANSFER TO THE [facility]. 01/25/25924<Electronically signed by Davian Kelly MD> Diet [...] post repair 01/20/2025 -After mechanical fall at [facility] -Ortho consulted -Patient n.p.o. -Pain control/supportive care [...] in before D/C Order can be placed): Shelter Facility (1) Closed hip fracture Qualifiers: Encounter [...] MD> Cosigner Signature (if applicable): CC: Dr. Stehpan Martel DO; Dr. Darline Lundy MD; Dr. Braulio Tijerina MD; Tressa Rosales ~ [facility] Work Phone: 1(279) 962-966510-15-2025 Discharge summary [facility] Medical Records Department [address] [place] [address] Transfer to [facility] Care MR#: [id number] Acct: [id number] Name: MONISHA CHON Rep #:[id number] 7 : 1940 84 From: Davian interiano MD PCP: Tressa Rosales Status:ADM IN Certification of patient admission REQUIRED AT TIME OF ADMISSION. I CERTIFY THAT POST-HOSPITAL ECF SERVICES ARE REQUIRED TO BE GIVEN ON AN IN-PATIENT BASIS BECAUSE OF THE ABOVE NAMED PATIENT'S NEED FOR LONGTERM CARE ON A CONTINUING BASIS FOR THE [...] post repair 01/20/2025 -After mechanical fall at [facility] -Ortho consulted -Patient n.p.o. -Pain control/supportive care [...] in before D/C Order can be placed): Shelter Facility (1) Closed hip fracture Qualifiers: Encounter [...] Dr. Braulio Tijerina MD; Tressa Rosales ~ [facility]10-14-2025 Progress note Author Davian Kelly [facility] Note Date/Time January 24, 2025 1 0:33am [facility] Medical Records Department [address] [place] [address] Progress Note - Hospitalist 01/24/25 1031 MR#: [id number] Acct: [id number] Name: MONISHA COHN Rep #:[id number] 0 : 1940 84 From: Davian interiano MD PCP: Tressa Rosales Status:ADM IN Location: [facility]3 CU866-0 Subjective Subjective Doing well, no issues overnight. [...] post repair 01/20/2025 -After mechanical fall at [facility] -Ortho consulted -Patient n.p.o. -Pain control/supportive care [...] DVT: Xarelto Charges/Coding Visit Charges Inpatient E&M: 83203 Subs Hosp L2 01/24/25 1033 <Electronically signed by Davian Kelly MD> Cosigner Signature (if applicable): CC: ~ Signed [facility] Work Phone: 1(298) 676-155510-14-2025 Progress note [facility] Medical Records Department [address] [place] [address] Progress Note - Hospitalist 01/24/25 1031 MR#: [id number] Acct: [id number] Name: MONISHA COHN Rep #:[id number] 0 : 1940 84 From: Davian interiano MD PCP: Tressa Rosales Status:ADM IN Location: [place] [address]-1 Subjective Subjective Doing well, no issues overnight. [...] post repair 01/20/2025 -After mechanical fall at [facility] -Ortho consulted -Patient n.p.o. -Pain control/supportive care [...] DVT: Xarelto Charges/Coding Visit Charges Inpatient E&M: 71165 Subs Hosp L2 01/24/25 1033 Cosigner Signature (if applicable): CC: ~ Signed [facility]10-13-2025 Progress note Author Davian Kelly [facility] Note Date/Time January 23, 2025 1 1:01am [facility] Medical Records Department [address] [place] [address] Progress Note - Hospitalist 01/23/25 1053 MR#: [id number] Acct: [id number] Name: MONISHA COHN Rep #:[id number] 4 : 1940 84 From: Davian interiano MD PCP: Tressa Rosales Status:ADM IN Location: [facility]3 KU196-6 Subjective Subjective Pain is controlled, no issues [...] DVT: Xarelto Charges/Coding Visit Charges Inpatient E&M: 21369 Subs Hosp L2 01/23/25 1101 <Electronically signed by Davian Kelly MD> Cosigner Signature (if applicable): CC: ~ Signed [facility] Work Phone: 1(613) 509-575310-13-2025 Progress note [facility] Medical Records Department [address] [place] [address] Progress Note - Hospitalist 01/23/25 1053 MR#: [id number] Acct: [id number] Name: MONISHA COHN Rep #:[id number] 4 : 1940 84 From: Davian interiano MD PCP: Tressa Rosales Status:ADM IN Location: [place] [address] Subjective Subjective Pain is controlled, no issues [...] post repair 01/20/2025 -After mechanical fall at [facility] -Ortho consulted -Patient n.p.o. -Pain control/supportive care [...] DVT: Xarelto Charges/Coding Visit Charges Inpatient E&M: 57316 Subs Hosp L2 01/23/25 1101 Cosigner Signature (if applicable): CC: ~ Signed [facility]10-12-2025 Progress note Author Davian Kelly [facility] Note Date/Time January 22, 2025 9 :19am [facility] Medical Records Department [address] [place] [address] Progress Note - Hospitalist 01/22/25917 MR#: [id number] Acct: [id number] Name: MONISHA COHN Rep #:[id number] 0 : 1940 84 From: Davian interiano MD PCP: Tressa Rosales Status:ADM IN Location: [place] [address]-1 Subjective Subjective Doing well, pain is controlled. [...] post repair 01/20/2025 -After mechanical fall at [facility] -Ortho consulted -Patient n.p.o. -Pain control/supportive care [...] DVT: Xarelto Charges/Coding Visit Charges Inpatient E&M: 26160 Subs Hosp L2 01/22/25918 <Electronically signed by Davian Kelly MD> Cosigner Signature (if applicable): CC: ~ Signed [facility] Work Phone: 1(489) 817-577010-12-2025 Progress note [facility] Medical Records Department [address] [place] [address] Progress Note - Hospitalist 01/22/25917 MR#: [id number] Acct: [id number] Name: MONISHA COHN Rep #:[id number] 0 : 1940 84 From: Davian interiano MD PCP: Tressa Rosales Status:ADM IN Location: [place] [address] Subjective Subjective Doing well, pain is controlled. [...] DVT: Xarelto Charges/Coding Visit Charges Inpatient E&M: 77059 Subs Hosp L2 01/22/25 0919 Cosigner Signature (if applicable): CC: ~ Signed [facility]10-11-2025 Progress note Author Braulio Tijerina [facility] Note Date/Time January 21, 2025 1 :41pm [facility] Medical Records Department [address] [place] [address] Progress Note - Orthopedic 01/21/25 1335 MR#: [id number] Acct: [id number] Name: MONISHA COHN Rep #:[id number] 7 : 1940 84 From: Braulio Fontana PCP: Tressa Rosales Status:ADM IN Location: MS3 IV054-1 Subjective Subjective Patient states she is doing [...] hip surgical and chronic changes. [facility] 01/20/25 16:20 IMPRESSION: Uncomplicated appearing [...] Signed [facility] Work Phone: 1(459) 188-543010-11-2025 Progress note [facility] Medical Records Department [address] [place] [address] Progress Note - Orthopedic 01/21/25 1335 MR#: [id number] Acct: [id number] Name: MONISHA COHN Rep #:[id number] 7 : 1940 84 From: Braulio Fontana PCP: Tressa Rosales Status:ADM IN Location: MS3 IK469-4 Subjective Subjective Patient states she is doing [...] hip surgical and chronic changes. [facility]-Ray 01/20/25 16:20 IMPRESSION: Uncomplicated [...] applicable): CC: ~ Signed [facility]10-11-2025 Progress note Author Davian Kelly [facility] Note Date/Time January 21, 2025 9 :43am [facility] Medical Records Department [address] [place] [address] Progress Note - Hospitalist 01/21/25 0939 MR#: [id number] Acct: [id number] Name: SUKIMONISHA ARIEL Rep #:[id number] 7 : 1940 84 From: Davian interiano MD PCP: Tressa Rosales Status:ADM IN Location: [facility]3 EW483-5 Subjective Subjective Doing well, no issues overnight. [...] hip surgical and chronic changes. [facility] X-Ray 01/20/25 16:20 IMPRESSION: Uncomplicated appearing right hip hemiarthroplasty. Left hip chronic and surgical changes. [facility] Physical Exam Narrative General: Alert, Oriented [...] post repair 01/20/2025 -After mechanical fall at [facility] -Ortho consulted -Patient n.p.o. -Pain control/supportive care [...] DVT: Xarelto Charges/Coding Visit Charges Inpatient E&M: 35187 Subs Hosp L2 01/21/25942 <Electronically signed by Davian Kelly MD> Cosigner Signature (if applicable): CC: ~ Signed [facility] Work Phone: 1(651) 611-132110-11-2025 Progress note [facility] Medical Records Department [address] [place] [address] Progress Note - Hospitalist 01/21/25938 MR#: [id number] Acct: [id number] Name: MONISHA COHN Rep #:[id number] 7 : 1940 84 From: Davian interiano MD PCP: Tressa Rosales Status:ADM IN Location: [facility] ON424-2 Subjective Subjective Doing well, no issues overnight. [...] hip surgical and chronic changes. Reading Location: [facility] Hip X-Ray 01/20/25 16:20 IMPRESSION: Uncomplicated appearing right hip hemiarthroplasty. Left hip chronic and surgical changes. Reading Location: [facility] Physical Exam Narrative General: Alert, Oriented [...] DVT: Xarelto Charges/Coding Visit Charges Inpatient E&M: 32454 Subs Hosp L2 01/21/25 0943 Cosigner Signature (if applicable): CC: ~ Signed [facility]10-10-2025 Consult note Author Brennen Rojas [facility] Note Date/Time January 20, 2025 5 :17pm [facility] Medical Records Department [address] [place] [address] Anesthesia Postop Eval I 01/20/25 1715 MR#: [id number] Acct: [id number] Name: MONISHA COHN Rep #:[id number] 0 : 1940 84 From: Brennen Rojas CRNA PCP: Tressa Rosales Status:ADM IN Y Race: C Location: [place] [address] Anesthesia: Postop Eval I Current Vital Signs [...] Yes 01/20/251716 <Electronically signed by Brennen paz INSULATION BOARD CALENDER OPERATOR> Date _ Brennen Rojas INSULATION BOARD CALENDER OPERATOR Cosigner Signature: Date CC: ~ Signed [facility] Work Phone: 1(990) 534-332410-10-2025 Consult note Author Jareth Shepard [facility] Note Date/Time January 25, 2025 1 :00pm [facility] Medical Records Department [address] [place] [address] Anesthesia Postop Eval II 01/20/251705 MR#: [id number] Acct: [id number] Name: MONISHA COHN Rep #:[id number] 7 : 1940 84 From: Jareth Shepard MD PCP: Tressa Rosales Status:ADM IN Y Race: C Location: [facility] MS309 -1 Anesthesia Postop Eval I Sum [...] Jareth Elliott Signature: Date CC: ~ Signed [facility] Work Phone: 1(563) 274-679810-10-2025 Procedure note [facility] Medical Records Department [address] [place] [address] Operative Report 01/20/25 1545 MR#: [id number] Acct: [id number] Name: MONISHA COHN Rep #:[id number] : 1940 84 From: Braulio Fontana PCP: Tressa Rosales Status:ADM IN [facility] Oper[facility] Report (Standard) Operative Information Date of Procedure: 01/20/25 Pre-Operative Diagnosis: Right hip subcapital femoral neck fracture Post-Operative Diagnosis: Right hip subcapital femoral neck fracture Surgery/Procedure Performed: Right hip endoprosthesis dramatic teacher: Yes Hand Suture Winder: Edyta Bhatti Tasks completed by assistant shift supervisor: Opening, Closing, Implanting device and Retracting Additional corporate legal assistant?: No Type of Anesthesia: General RN [...] awakened by anesthesia and transferred to the [facility]. Patient was then transferredto the [...] Dr. Braulio Tijerina MD; Tressa Rosales~ Signed [facility]10-10-2025 Consult note [facility] Medical Records Department [address] [place] [address] Anesthesia Postop Eval I 01/20/25 1715 MR#: [id number] Acct: [id number] Name: MONISHA COHN Rep #:[id number] 0 : 1940 84 From: Brennen Rojas CRNA PCP: Tressa Rosales Status:ADM IN Y Race: C Location: [facility] MS309 -1 Anesthesia: Postop Eval I Current [...] Eval 1 completed: Yes 01/20/25 1717 an INSULATION BOARD CALENDER OPERATOR> Date _ Brennen Rojas INSULATION BOARD CALENDER OPERATOR Cosigner Signature: Date CC: ~ Signed [facility]10-10-2025 Radiology Diagnostic study note [facility] Imaging Services [address] [place] [address] [id number] Hip Min 2 Views (Portable) MR#: [id number] Acct: [id number] Name: MONISHA COHN Rep #: [id number] : 1940 F 84 From: Christine [place] MD PCP: Tressa Rosales Status: ADM IN Study:Hip Min 2 Views (Portable) Date of Exam : 01/20/25 Exam# [id number] Ordering Dr: Rachele Tijerina MD PROCEDURE: HIP [...] Dr. Braulio Tijerina MD; Tressa Rosales ~ Hotel Supplies Salesperson: Signed [facility]10-10-2025 Consult note Author Braulio Tijerina [facility] Note Date/Time January 20, 2025 2 :24pm [facility] Medical Records Department [address] [place] [address] Consultation - Orthopedics 01/20/25 1415 MR#: [id number] Acct: [id number] Name: MONISHA COHN Rep #:[id number] : 1940 84 From: Braulio Fontana PCP: Tressa Rosales Status:ADM IN Location: [facility] [id number] HPI Consult Data Date of Consult: 01/20/25 [...] Patient notes that [facility] and ambulates with a walker or uses a wheelchair. She does notwalk independently. She was reported to have fallen yesterday and sustained an injury to her right hand and hip. She was seen at an outside hospital and requested transfer to [place] as they did not have orthopedics. She [...] denies any current treatment or active malignancies. REPLACED BY [facility] Medical History Nocturia Urge incontinence Overactive bladder Former tobacco use Depression Hypertension Fall CHI (closed head injury) Presence of stent in coronary artery (~12/22/21) Atherosclerotic heart disease of ch[place]wwa coronary artery without angina pectoris ST elevation [...] mg chewable tablet 125 mg PO QD-BID IN N abdominal 12/28/24 Unknown History (Mylanta Gas) [...] 81.1 H, Lymph % (Auto) 11.1 L, [place] % (Auto) 7.2, Eos % (Auto) 0.1, [...] Sl. Cloudy, Urine pH 6.5, Ur Specific [place] 1.010, Urine Protein 15 H, Urine Glucose [...] Signature (if applicable): CC: Tressa Rosales~ Signed [facility] Work Phone: 1(187) 826-384010-10-2025 Radiology Diagnostic study note [facility] Imaging Services [address] [place], [place] [address] Hip Min 2 Views (Portable) MR#: [id number] Acct: [id number] Name: MONISHA COHN Rep #: [id number] : 1940 F 84 From: Christine [place] MD PCP: Tressa Rosales Status: ADM IN Study:Hip Min 2 Views (Portable) Date of Exam : 01/20/25 Exam# [id number] Ordering Dr: Rachele Tijerina MD PROCEDURE: HIP [...] hip surgical and chronic changes. Reading [facility] CC: Dr. Braulio Tijerina MD; Tressa Rosales ~ Hotel Supplies Salesperson: Signed [facility]10-10-2025 Consult note Author Jareth [facility] Note Date/Time January 20, 2025 2 :03pm [facility] Medical Records Department [address] [place] [address] Pre-Anesthesia Evaluation 01/20/25 1342 MR#: [id number] Acct: [id number] Name: MONISHA COHN Rep #:[id number] : 1940 84 From: Jareth Shepard MD PCP: Tressa Rosales Status:ADM IN Y Race: C Location: [place] [address] -1 ASA Classification* ASA Classification ASA Classification: [...] hip hemiarthroplasty Anesthesia History Anesthesia History - manager credit risk: Anesthesia History - manager credit risk Hx Hospitalization Any Problems With Anesthesia No [...] take am of surgery PONV PONV - manager credit risk: PONV - manager credit risk Female HX of Motion Sickness HX of N/V After Surgery Non-Smoker Duration of Surgery greater than 60 minutes Number of Risk Factors PONV Score Height & Weight Height & Weight: Anesthesia: Height & Weight Height 5 ft 1.81 in 01/20/25 11:58 Weight: 75 kg 01/20/25 11:58 Body Mass Index (BMI) 30.4 01/20/25 11:58 Respiratory Assessment Respiratory Assessment - manager credit risk: Respiratory Tract Infection Hx - manager credit risk Hx Respiratory Tract Infection Yes: covid 01/20/25 [...] STOP Sleep Apnea STOP Sleep Apnea - manager credit risk: STOP Sleep Apnea - manager credit risk Hx Hypertension Yes 01/20/25 01:18 Hx Sleep [...] 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 - manager credit risk: 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 - manager credit risk Tobacco Use Smoking Status Former smoker 01/20/25 01:18 Hx Tobacco Use No 01/20/25 01:18 Years Smoking Packs Smoked per Day Smoking Cessation Date was No - quit smoking greater 01/20/25 01:18 within the last 15 years than 15 years ago Hx Smoking Cessation Date 04/13/79 01/20/25 01:18 Hx Smoking Cessation Counseling Hematologic Medial History Hematologic Hx - manager credit risk: Hematologic 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 Hx of Blood Transfusion Yes 01/20/25 01:18 [...] confused, unrespo /Reproduction History /Reproductive History - manager credit risk: /Reproductive Hx- manager credit risk Hx Now No 01/20/25 01:31 Gestational Age [...] mls @ 15 mls/hr 01/20/25 01:13 IV .[id number] PRN Saline Flush Sodium Chloride 250 mls @ 15 mls/hr 01/20/25 01:13 IV .[id number] PRN Additional IVPB Infusion Lactated Ringer's 1,000 mls @ 15 mls/hr 01/20/25 13:00 01/20/25 13:06 IV 15 mls/hr .Q48H MRATY Administration Morphine Sulfate 2 mg 01/20/25 01:06 [...] coronary artery (~12/22/21) Atherosclerotic heart disease of chipeww[place] coronary artery without angina pectoris ST elevation [...] mg chewable tablet 125 mg PO QD-BID IN N abdominal 12/28/24 Unknown History (Mylanta Gas) [...] MD Cosigner Signature: Date CC: ~ Signed [facility] Work Phone: 1(293) 418-674410-10-2025 Consult note [facility] Medical Records Department [address] [place] [address] Consultation - Orthopedics 01/20/25 1415 MR#: [id number] Acct: [id number] Name: MONISHA COHN Rep #:[id number] : 1940 84 From: Braulio Fontana PCP: Tressa Rosales Status:ADM IN Location: [facility] [id number] HPI Consult Data Date of Consult: 01/20/25 [...] Patient notes that [facility] and ambulates with a walker or uses a wheelchair. She does notwalk independently. She was reported to have fallen yesterday and sustained an injury to her right hand and hip. She was seen at an outside hospital and requested transfer to [place] as they did not have orthopedics. She [...] Patient denies any current treatment or activemalignancies. REPLACED BY [facility] Medical History Nocturia Urge incontinence Overactive bladder Former tobacco use Depression Hypertension Fall CHI (closed head injury) Presence of stent in coronary artery (~12/22/21) Atherosclerotic heart disease of chipewwa coronary artery without angina pectoris ST elevation [...] mg chewable tablet 125 mg PO QD-BID IN N abdominal 12/28/24 Unknown History (Mylanta Gas) [...] 81.1 H, Lymph % (Auto) 11.1 L, [place] % (Auto) 7.2, Eos % (Auto) 0.1, [...] Sl. Cloudy, Urine pH 6.5, Ur Specific [place] 1.010, Urine Protein 15 H, Urine Glucose [...] Signature (if applicable): CC: Tressa Rosales~ Signed [facility]10-10-2025 Progress note Author Darline Lundy [facility] Note Date/Time January 20, 2025 1 2:07pm [facility] Medical Records Department [address] [place] [address] Progress Note - Hospitalist 01/20/25 0842 MR#: [id number] Acct: [id number] Name: MONISHA COHN Rep #:[id number] : 1940 84 From: Darline Lundy MD PCP: Tressa Rosales Status:ADM IN Location: MS3 [id number] Hospitalist Note 84y/o F with a history of coronary artery disease with RCA stent, Parkinson's disease, fibromyalgia and overactive bladder, recent COVID diagnosis, who presented [facility] ED 01/20/2025 as a transfer from [place] [facility] after she was found to have an impacted right femoral neck fracture. Reportedlyshe was at [facility] when she sustained a mechanical fall on her right side and subsequently could not please ambulate to assess for home O2 needs. Was noted to have a scalp hematoma and metacarpal fracture of right hand but denied any loss of consciousness with the fall. [place] ED physician spoke to Dr. Tijerina withorthopedisofi [...] Signed [facility] Work Phone: 1(410) 636-354610-10-2025 Consult note [facility] Medical Records Department [address] [place] [address] Pre-Anesthesia Evaluation 01/20/25 1342 MR#: [id number] Acct: [id number] Name: MONISHA COHN Rep #:[id number] : 1940 84 From: Jareth Shepard MD PCP: Tressa Rosales Status:ADM IN Y Race: C Location: [facility] -[facility] ASA Classification* ASA Classification ASA Classification: [...] hip hemiarthroplasty Anesthesia History Anesthesia History - manager credit risk: Anesthesia History - manager credit risk Hx Hospitalization Any Problems With Anesthesia No [...] take am of surgery PONV PONV - manager credit risk: PONV - manager credit risk Female HX of Motion Sickness HX of N/V After Surgery Non-Smoker Duration of Surgery greater than 60 minutes Number of Risk Factors PONV Score Height & Weight Height & Weight: Anesthesia: Height & Weight Height 5 ft 1.81 in 01/20/25 11:58 Weight: 75 kg 01/20/25 11:58 Body Mass Index (BMI) 30.4 01/20/25 11:58 Respiratory Assessment Respiratory Assessment - manager credit risk: Respiratory Tract Infection Hx - manager credit risk Hx Respiratory Tract Infection Yes: covid 01/20/25 [...] STOP Sleep Apnea STOP Sleep Apnea - manager credit risk: STOP Sleep Apnea - manager credit risk Hx Hypertension Yes 01/20/25 01:18 Hx Sleep [...] 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 - manager credit risk: 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 - manager credit risk Tobacco Use Smoking Status Former smoker 01/20/25 01:18 Hx Tobacco Use No 01/20/25 01:18 Years Smoking Packs Smoked per Day Smoking Cessation Date was No - quit smoking greater 01/20/25 01:18 within the last 15 years than 15 years ago Hx Smoking Cessation Date 04/13/79 01/20/25 01:18 Hx Smoking Cessation Counseling Hematologic Medial History Hematologic Hx - manager credit risk: Hematologic 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 Hx of Blood Transfusion Yes 01/20/25 01:18 [...] confused, unrespo /Reproduction History /Reproductive History - manager credit risk: /Reproductive Hx- manager credit risk Hx Now No 01/20/25 01:31 Gestational Age [...] mls @ 15 mls/hr 01/20/25 01:13 IV .[id number] PRN Saline Flush Sodium Chloride 250 mls @ 15 mls/hr 01/20/25 01:13 IV .[id number] PRN Additional IVPB Infusion Lactated Ringer's 1,000 [...] Glycol 3350 17 Gm Packet PO DAILY [facility] Psyllium Hydrophilic Mucilloid 1 packet 01/20/25 10:00 Psyllium 1 Packet PO DAILY [facility] Sodium Chloride 10 - 40 ml 01/20/25 01:13 01/20/25 09:21 0.9% Saline Lock 10 Ml Syringe IV 10 ml UD PRN Administration SALINE FLUSH PFSH Medical History Nocturia Urge incontinence Overactive bladder Former tobacco use Depression Hypertension Fall CHI (closed head injury) Presence of stent in coronary artery (~12/22/21) Atherosclerotic heart disease of chipeww[place] coronary artery without angina pectoris ST elevation [...] mg chewable tablet 125 mg PO QD-BID IN N abdominal 12/28/24 Unknown History (Mylanta Gas) [...] MD Cosigner Signature: Date CC: ~ Signed [facility]10-10-2025 Progress note [facility] Medical Records Department [address] [place] [address] Progress Note - Hospitalist 01/20/25 0842 MR#: [id number] Acct: [id number] Name: MONISHA COHN Rep #:[id number] : 1940 84 From: Darline Lundy MD PCP: Tressa Rosales Status:ADM IN Location: MS3 [id number] Hospitalist Note 84y/o F with a history of coronary artery disease with RCA stent, Parkinson's disease, fibromyalgiaand overactive bladder, recent COVID diagnosis, who presented [facility] ED 01/20/2025 as a transfer from [place] [facility] after she was found to have an impacted right femoral neck fracture. Carla masterson was at [facility] when she sustained a mechanical fall on her right side and subsequently could not please ambulate to assess for home O2 needs. Was noted to have a scalp hematoma and metacarpal fracture of right hand but denied any loss of consciousness with the fall. [place] ED physician spoketo Dr. Tijerina withorthopedics who recommended admission to the hospital service with formal consultation for ORIF. Patient was transferred to a medical floor. # Impacted right intertrochanteric fracture of the femoral neck and metacarpal fracture right hand -After mechanical fall at [facility] -Ortho consulted -Patient n.p.o. -Pain control/supportive care [...] applicable): CC: ~ Signed [facility]10-10-2025 History and physical note Author Stephan Beard [facility] Note Date/Time January 20, 2025 6 :54am [facility] Medical Records Department [address] [place] [address] H&P Exam - Hospitalist 01/20/25 0112 MR#: [id number] Acct: [id number] Name: MONISHA COHN Rep #:[id number] : 1940 84 From: Stephan Hernandez DO PCP: Tressa Rosales Status:ADM IN Location: WA3 [id number] [facility] - General General Date of Admission: 01/20/25 Date of Service: 01/20/25 Chief Complaint: Fall with Right Hip Fracture. HPI Narrative MONISHA COHN, is a 84 F with a past medical history of essential hypertension; currently not on treatment, hyperlipidemia; on atorvastatin, former tobacco abuse; with subsequent COPD and pulmonary hypertension, CAD; with RCA stent at [facility] in [place] (2009) and subsequent inferior wall ST elevation [place] s/p RCA stent with cardiogenic shock and [...] recently diagnosed COVID-19 who was transferred from [facility] she was diagnosed with an impacted Right [...] LOC with her fall. Dr. [facility] of [facility] spoke to Dr. Tijerina of the orthopedic service here who recommended admission to the hospitalist service with formal consultation pending in the a.m. for ORIF. She was then admitted to the generalmedical floor for ongoing care for stay that is expected to extend beyond 2 midnights. REPLACED BY [facility] Medical History Nocturia Urge incontinence Overactive bladder Former tobacco use Depression Hypertension Fall CHI (closed head injury) Presence of stent in coronary artery (~12/22/21) Atherosclerotic heart disease of chipewwa coronary artery without angina pectoris ST elevation [...] mg chewable tablet 125 mg PO QD-BID IN N abdominal 12/28/24 Unknown History (Mylanta Gas) [...] in AM. Give acetaminophen as needed for msnv-qh-zjjmbcfm (level 1-5/10) pain or fever. Give morphine [...] before. 4. CAD; with RCA stent at [facility] in [place] (2009) and subsequent inferior wall ST elevation [place] s/p RCA stent with cardiogenic shock and [...] 75 minutes. Charges/Coding Visit Charges Inpatient E&M: 00034 Init Hosp L3 01/20/25 0654 <Electronically signed by Stephan Martel DO> Cosigner Signature (if applicable): CC: Dr. Stephan Martel DO; Tressa Rosales~ Signed [facility] Work Phone: 1(512) 585-540810-10-2025 History and physical note [facility] Medical Records Department [address] [place] [address] H&P Exam - Hospitalist 01/20/25 0112 MR#: [id number] Acct: [id number] Name: MONISHA COHN Rep #:[id number] : 1940 84 From: Stephan Hernandez DO PCP: Tressa Rosales Status:ADM IN Location: WA3 [id number] [facility] - General General Date of Admission: 01/20/25 Date of Service: 01/20/25 Chief Complaint: Fall with Right Hip Fracture. HPI Narrative MONISHA COHN, is a 84 F with a past medical history of essential hypertension; currently not on treatment, hyperlipidemia; on atorvastatin, former tobacco abuse; with subsequent COPD and pulmonary hypertension, CAD; with RCA stent at [facility] in [place] (2009) and subsequent inferior wall ST elevation [place] s/p RCA stent with cardiogenic shock and [...] recently diagnosed COVID-19 who was transferred from [facility] she was diagnosed with an impacted Right [...] LOC with her fall. Dr. [facility] of [facility] spoke to Dr. Tijerina of the orthopedic service here who recommended admission to the hospitalist service with formal consultation pending in the a.m. for ORIF. She was then admitted to the generalmedical floor for ongoing care for stay that is expected to extend beyond 2 midnights. REPLACED BY [facility] Medical History Nocturia Urge incontinence Overactive bladder Former tobacco use Depression Hypertension Fall CHI (closed head injury) Presence of stent in coronary artery (~12/22/21) Atherosclerotic heart disease of chipewwa coronary artery without angina pectoris ST elevation [...] mg chewable tablet 125 mg PO QD-BID IN N abdominal 12/28/24 Unknown History (Mylanta Gas) [...] in AM. Give acetaminophen as needed for wnxd-gv-ukrjhxcy (level 1-5/10) pain or fever. Give morphine [...] before. 4. CAD; with RCA stent at [facility] in [place] (2009) and subsequent inferior wall ST elevation [place] s/p RCA stent with cardiogenic shock and [...] 75 minutes. Charges/Coding Visit Charges Inpatient E&M: 44180 Init Hosp L3 01/20/25 0654 Cosigner Signature (if applicable): CC: Dr. 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 CAD (coronary artery disease) chroni c September 27, 2024 10:37am Essential (primary) hypertension chr onic September 27, 2024 10:37am Hyperlipidemia chronic September 27, 2024 10:37am Non-rheumatic mitral regurgitation chronic September 27, 2024 10:37am Parkinsons disease chronic September 112024 10:37am [facility] Work Phone: 1(705) 307-583706-17-2025 Evaluation note* Diagnosis Onset Date Resolution Status [...] disease chronic 2024 12:46pm [facility] Work Phone: 1(100) 824-645706-17-2025 Progress [facility] [address] [place] [address] OFFICE VISIT Date of Service: 09/27/24 MR#: [id number] Acct: [id number] Name: MONISHA COHN Rep #: [id number] : 1940 Provider: Dr. Domingo Vernon MD Age/Sex: 84/F [facility]: [facility] Status: Signed HPI HPI History of [...] NIBP Intake Visit Reasons: 6 M FU Manager Property Required: No Accompanied by: Is patient in [...] past year?: Yes (no major injuries; 2) REPLACED BY [facility] Medical History Atherosclerotic heart disease of chipewwa coronary artery without angina pectoris Bladder spasms [...] Supplemental Info Supplemental Information ECHOCARDIOGRAM 12/23/21 @ [facility] Left ventricular ejection fraction is normal, [...] tricuspid valve regurgitation Cath Intervention 12/20/09 @ [facility] Percutaneous coronary angioplasty and stenting of the right coronary artery withtwo drug eluting stents 2.5x30mm and 2.5x12mm Cath Intervention 12/22/21 @ [facility] Percutaneous coronary intervention in the right coronary artery with a 2.75x22 mm MIKKI drug elutingstent Assessment and Plan Assessment and Plan (1) CAD (coronary artery disease): Status: Chronic Plan: History of inferior [place]. History of drug-eluting stents placement to the [...] Date (if applicable) CC: Tressa Rosales ~ [facility]06-17-2025 Progress note Author Danielle Vernon [facility] Note Date/Time September 27, 2024 11:5 1am [facility] [place] [facility] [place] [address] [facility] [place] [address] OFFICE VISIT Date of Service: 09/27/24 MR#: [id number] Acct: [id number] Name: MONISHA COHN Rep #: [id number] : 1940 Provider: Dr. Domingo Vernon MD Age/Sex: 84/F Location: [facility] Status: Signed HPI HPI History of [...] NIBP Intake Visit Reasons: 6 M FU Manager Property Required: No Accompanied by: Is patient in [...] past year?: Yes (no major injuries; 2) REPLACED BY [facility] Medical History Atherosclerotic heart disease of chipewwa coronary artery without angina pectoris Bladder spasms [...] Supplemental Info Supplemental Information ECHOCARDIOGRAM 12/23/21 @ [facility] Left ventricular ejection fraction is normal, [...] tricuspid valve regurgitation Cath Intervention 12/20/09 @ [facility] Percutaneous coronary angioplasty and stenting of the right coronary artery withtwo drug eluting stents 2.5x30mm and 2.5x12mm Cath Intervention 12/22/21 @ [facility] Percutaneous coronary intervention in the right coronary artery with a 2.75x22 mm MIKKI drug eluting stent Assessment and Plan Assessment and Plan (1) CAD (coronary artery disease): Status: Chronic Plan: History of inferior [place]. History of drug-eluting stents placement to the [...] CC: Tressa Rosales ~ [facility] Work Phone: [phone] Instructions* Patient Instructions* Armen Madison MD - [...] this neuropathy. [facility] History of Present illness Narrative* Armen Madison MD - 07/29/2024 3:00 PM EDT [facility] [place] [facility] New Patient Visit Note Consultation [...] which included preparing to see the patient, gxws-yr-imco patient care, completing clinical documentation, performing a medically appropriate examination, counseling and educating the patient/family/caregiver, and ordering medications, tests,or procedures. Armen Madison MD Neuromuscular Medicine (NM) [facility], [facility] [place] documented in this encounterC[facility]04-18-2025 NoteHNO ID: [id number] Author: ARMEN MADISON MD Service: ? Author Type: Physician Type: Progress Notes Filed: 07/29/2024 15:33 Note Text: [facility] [place] [facility] New Patient Visit Note Consultation [...] will be communicated to the patient via telephone/AxisMobilehart. Patient to call office if not contacted after expected testing turnaround time. I spent a total of 34 minutes on the date of the service which included prepari (more content not included)...[facility]03-18-2025 Instructions* Patient Instructions* Em Flynn APRN.CNP [...] or you can send a message through Makstr. You can also now schedule and select appointments through [employer]. Em Flynn APRN.RUPALI documented in this [facility]-2025 History of Present illness Narrative* Em Flynn APRN.RUPALI - 06/28/2024 8:00 AM EDT [facility] - FOLLOW UP EVALUATION The patient consented to the use of ambient PubNub software for draft documentation of the visit consistent with [facility] s Notice of Privacy Practices. Alexandra Arreguin APRN.RUPALI [address] [address] Dear Alexandra Arreguin APRN.CNP: I had the [...] directives (living will and durable power of kier drier for healthcare): By Email: Send your document(s) to as an attachment in either PDF, TIFF, or JPEG format. By Mail: [facility] Information Management, [employer] Directive Processing [address] [place], [place] [address] By In person at any [facility] location Please note: You can use the address or fax number regardless of which [facility] you utilize, and we will make [...] to being in heaven due to her Sabianist mark, which some people misinterpret as depression. [...] c) the amplitude decrements startingafter the 1st vcsy-lnj-spaxf sequence. Hand Movements Left 2-Mild. a) 3 [...] or around: 12/29/24 Level of service : 29300 (40-68 min). Time spent 59 min on the day of service, which included preparing to see the patient, mbsr-xc-orel patient care, completing clinical documentation, obtaining and/or reviewing separately obtained history, performing a medically appropriate examination, counseling and educating the patient/family/caregiver, and ordering medications, tests, or procedures. Em Flynn APRN.RUPALI documented in this encounterCleveland [facility] Luther[facility]03-18-2025 NoteHNO ID: [id number] Author: EM FLYNN APRN.CNP Service: ? Author Type: Nurse Practitioner Type: Progress Notes Filed: 06/28/2024 23:22 Note Text: [facility] - FOLLOW UP EVALUATION The patient consented to the use of ambient PubNub software for draft documentation of the visit consistent with [facility]?s Notice of Privacy Practices. Alexandra Arreguin APRN.CNP [address] [address] Dear Alexandra Arreguin APRN.SHOELACE TIPPING MACHINE OPERATOR: I had the pleasure of [...] directives (living will and durable power of kier drier for healthcare): By Email: Send your document(s) to as an attachment in either PDF, TIFF, or JPEG format. By Mail: [facility] Information Management, Ab7 Advance Directive Processing [address] [place], [place] [address] By In person at any [facility] location Please note: You can use the address or fax number regardless of which [facility] you utilize, and we will make [...] past who are n (more content not included)...[facility] 06-03-2024 Nuclear medicine Diagnostic study note [facility] Imaging Services [address] [place] [address] Hepatobilliary Img w/Pharm Int MR#: [id number] Acct: [id number] Name: MONISHA COHN Rep #: [id number] : 1940 F 84 From: Alejandro Tomlin MD PCP: Tressa Rosales Status: REG CLI Study:Hepatobilliary Img w/Pharm Int Date of Exam: 06/03/24 Exam# [id number] Ordering Dr: Deanna Lujan NP LOAN APPROVER-C PROCEDURE: HEPATOBILLIARY IMG W/PHARM INT REASON FOR [...] SCAN AND GALLBLADDER EJECTION FRACTION. Reading Location: [place] [address] CC: Didi VAZQUEZ NP-Mariajose Lujan; Tressa Rosales ~ Hotel Supplies Salesperson: Signed [facility]12-04-2024 Evaluation note* Diagnosis Onset Date Resolution Status Admit Date Argyria chronic March 16, 2024 8:48am CAD (coronary artery disease) chroni c March 16, 2024 8:48am Essential (primary) hypertension chronic March 16 8:48am Hyperlipidemia chronic March 162023 8:48am Non-rheumatic mitral regurgitation chronic March 16 8:48am Parkinsons disease chronic Dece 2023 8:48am [facility] Work Phone: [phone]) 146-982409-19-2024 Instructions* Patient Instructions* Em Flynn APRN.SHOELACE TIPPING MACHINE OPERATOR - 12/31/2023 9:49 AM EDT [...] directives (living will and durable power of kier drier for healthcare): By Email: Send your document(s) to as an attachment in either PDF, TIFF, or JPEG format. By Mail: [facility] Information Management, Ab7 Advance Directive Processing [address] [place], [place] [address] By In person at any [facility] location Please note: You can use the address or fax number regardless of which [facility] you utilize, and we will make sure it is filed appropriately. Movement Disorders Medication Schedule: Medications 8AM 12PM 4PM 8PM Sinemet 25/100 2 1.5 1.5 1.5 Return at or around: 03/31/24 If there are any concerns before your next visit, please call or you can send a message through Makstr. You can also now schedule and select appointments through Mak[employer]. Em Flynn APRN.RUPALI documented in this encounterCleveland Clinic Lutheran Hospital09-19-2024 History of Present illness Narrative* Em Flynn APRN.RUPALI - 12/31/2023 9:00 AM EDT [facility] - FOLLOW UP EVALUATION Alexandra Arreguin APRN.CNP [address] [facility] [address] Dear Alexandra Arreguin APRN.CNP: I had the [...] Double vision: Please follow up with your device test engineer as scheduled Interested in clinical research? [...] other sensations: She is seen by an license and permit specialist for her hip. Speech/Swallowing Speech problems: [...] c) the amplitude decrements startingafter the 1st xsyb-cgf-egnhz sequence. (She has a trigger finger) Hand [...] directives (living will and durable power of kier drier for healthcare): By Email: Send your document(s) to as an attachment in either PDF, TIFF, or JPEG format. By Mail: [facility] Information Management, Ab7 Advance Directive Processing [address] [place], [place] [address] By In person at any [facility] location Please note: You can use the address or fax number regardless of which [facility] you utilize, and we will make sure it is filed appropriately. Updated Movement Disorders Medication Schedule: Medications 8AM 12PM 4PM 8PM Sinemet 25/100 2 1.5 1.5 1.5 Return at or around: 03/31/24 Level of service : 90484 ( 30-39 min). Time spent 39 min on the day of service, which included preparing to see the patient, yukz-yg-ugxe patient care, completing clinical documentation, obtaining and/or reviewing separately obtained history, performing a medically appropriate examination, counseling and educating the patient/family/caregiver, and ordering medications, tests, or procedures. Em Flynn APRN.RUPALI documented in this encounterCleveland Clinic Luther[facility] Hospital08-09-2024 Note* Letter - Coordinator, Mammography - 11/20/2023 10:34 AM EDT November 20, 2023 PID: [id number] Monisha Brink [address] [place] [address] Dear Ms. Cohn, We are pleased to [...] be kept on file at [facility] as part of your permanent medical record and are available for your continuing care. Thank you for allowing us to help in meeting your health care needs. Sincerely, Dr. George Interpreting Radiologist [facility] (Normal over 40) [facility]08-09-2024 Note* Letter - Coordinator, Mammography - 11/20/2023 10:34 AM EDT November 20, 2023 PID: [id number] Monisha Keena [address] [place] [address] Dear Ms. Cohn, We are pleased to [...] be kept on file at [facility] as part of your permanent medical record and are available for your continuing care. Thank you for allowing us to help in meeting your health care needs. Sincerely, Dr. George Interpreting Radiologist [facility] (Normal over 40) [facility]08-09-2024 Miscellaneous Notes* Letter - Coordinator, Mammography - 11/20/2023 10:34 AM EDT November 20, 2023 PID: [id number] Monisha Songtke [address] [place] [address] Dear Ms. Cohn, We are pleased to [...] be kept on file at [facility] as part of your permanent medical record and are available for your continuing care. Thank you for allowing us to help in meeting your health care needs. Sincerely, Dr. George Interpreting Radiologist [facility] (Normal over 40) * Letter - Coordinator, Mammography - 11/20/2023 10:34 AM EDT November 20, 2023 PID: [id number] Monisha Songtke [address] [place] [address] Dear Jorgito Cohn, We are pleased to [...] be kept on file at [facility] as part of your permanent medical record and are available for your continuing care. Thank you for allowing us to help in meeting your health care needs. Sincerely, Dr. George Interpreting Radiologist [facility] (Normal over 40) documented in this encounterCleveland Clinic Lutheran Hospital08-09-2024 History of Present illness Narrative* Chitra Larson Tech - 11/20/2023 7:45 AM EDT Radiology Service Progress Note PATIENT NAME: Monisha PANTOJAN: [id number] DATE OF SERVICE: November 20, 2023 TIME: [...] PATIENT PRESENTS WITH AN IMPLANTABLE OR ATTACHED TRADE ANALYST: No RADIOLOGY DEPARTMENT: Mammography PERIPHERAL IV DATA: Not applicable SIGNED BY: Valentin Manzanares November 20, 2023 9:23 AM documented in this encounterCleveland Clinic Luther[facility] Hospital07-10-2024 Telephone encounter Note * Telephone Encounter - Rosie Cruz RN - 10/21/2023 10:01 AM EDT Received [employer] 10-20-23 at 12:28 PM. Ga this is Rissa at [facility]. Calling in regards to Monisha Cohn. 42. She gotan order from the orthopedic to do therapy which they have started but they wanted to know what wastorn and I believe Dr. Sheehan was the one who did the MRI, or read the MRI. If someone could fax us over the notes they would appreciate it. The fax number is [phone]. If you have any questions you can call me back at [phone]. Thank you. Last office visit note with Stephan Sheehan PA-C & imaging report faxed to [facility] PT department. [facility]07-10-2024 Miscellaneous Notes* Telephone Encounter - Rosie Cruz RN - 10/21/2023 10:01 AM EDT Received voicemail 10-20-23 at 12:28 PM. Hi this is Rissa at [facility]. Calling in regards to Monisha Cohn. 42. She gotan order from the orthopedic to do therapy which they have started but they wanted to know what wastorn and I believe Dr. Sheehan was the one who did the MRI, or read the MRI. If someone could fax us over the notes they would appreciate it. The fax number is [phone]. If you have any questions you can call me back at [phone]. Thank you. Last office visit note with Stephan Sheehan PA-C & imaging report faxed to [facility] PT department. documented in this encounterCleveland Clinic Luther[facility] Hospital07-05-2024 Telephone encounter Note * Telephone Encounter - Karolina Sanders RN - 10/16/2023 2:31 PM EDT Called back number and spoke with therapist. Told her Yara's note Range of motion and rotator cuffstrengthening Claudia Wood PA-C [facility] Work Phone: 1(232) 543-393207-05-2024 Miscellaneous Notes* Telephone Encounter - Karolina Sanders [...] for the patient, please call facility at [phone], they alsoasked if we could send any office visit notes. documented in this encounterCleveland Clinic Luther[facility] Hospital07-05-2024 Telephone encounter Note * Telephone Encounter - Edwina Flanagan - 10/16/2023 10:02 AM EDT Patient is staying at a facility and is going physical therapy there. They were inquiring about what specific program needs to be done for the patient, please call facility at [phone], they alsoasked if we could send any office visit notes. [facility]06-21-[facility]24 History of Present illness Narrative* Yury Jasso MD - 10/02/2023 8:54 AM EDTAssociated Order(s): Large Joint Arthro/Inj: L shoulder joint Post-Procedure Diagnose(s): Acute pain of left shoulder Images from the original note were not included. ORTHOPAEDIC SHOULDER & ELBOW SERVICE HISTORY & PHYSICAL EXAM REFERRING PROVIDER: Stephan Sheehan [address] [place], [place] [id number] CHIEF COMPLAINT: left shoulder pain PAIN EVALUATION 10/02/2023 0852 Pain Location: Shoulder-Left Description: Radiating;Aching;Sharp radiates to elbow, also to wrist Frequency: Continuous Intervention/Comfort measure: Heat;Medication;Reposition;Relaxation;Exercise tylenol, tramadol Comments: [facility] Monisha Cohn is a 83 [...] negative Drop arm test: negative Biceps/bambi Signs Williamson's test: positive Michael deformity: negative Speed's test: [...] REFERRING PHYSICIAN: [place] [facility] [place] [facility] [place] the following physician. This consultation note will be sent to the following physician by either mail or electronic medical record. Stephan Sheehan [address] [place] [id number] Yury Jasso MD Shoulder & Elbow Surgeon Department of Orthopaedic Surgery [facility] documented in this encounterCleveland Clinic Luther[facility] Hospital06-18-2024 History of Present illness Narrative* Kelly [...] PATIENT PRESENTS WITH AN IMPLANTABLE OR ATTACHED TRADE ANALYST: No RADIOLOGY DEPARTMENT: General X-ray: Exam(s) Completed: Upper Extremity X- Ray(s): Shoulder, TRUE AP/ AXILLARY / SUPRA OUTLET left PERIPHERAL IV DATA: Not applicable SIGNED BY: Valentin Siddiqui September 29, 2023 10:18 AM documented in this encounterCleveland Clinic Lutheran Hospital06-18-2024 NoteHNO ID: [id number] Author: KELLY STEWART Tech Service: Radiology Author Type: Last Model Department Supervisor Type: Progress Notes Filed: 09/29/2023 10:18 Note [...] PATIENT PRESENTS WITH AN IMPLANTABLE OR ATTACHED TRADE ANALYST: No RADIOLOGY DEPARTMENT: General X-ray: Exam(s) Completed: Upper Extremity X-Ray(s): Shoulder, TRUE AP / AXILLARY / SUPRA OUTLET left PERIPHERAL IV DATA: Not applicable SIGNED BY: Valentin Siddiqui September 29, 2023 10:18 AMTr[facility] [id number] Instructions* Patient Instructions* Em Flynn APRN.SHOELACE TIPPING MACHINE OPERATOR - 09/29/2023 9:38 AM EDT [...] Double vision: Please follow up with your device test engineer as scheduled Interested in clinical research? Not currently Movement Disorders Medication Schedule: Medications 8AM 12PM 4PM 8PM Sinemet 25/100 2 1.5 1.5 1.5 Return at or around: 12/30/23 If there are any concerns before your next visit, please call or you can send a message through Makstr. You can also now schedule and select appointments through Makstr. Em Flynn APRN.RUPALI documented in this encounterCleveland Clinic Luther[facility] Hospital06-18-2024 History of Present illness Narrative* Em Flynn APRN.CNP - 09/29/2023 9:00 AM EDT [facility] - FOLLOW UP EVALUATION Alexandra Arreguin APRN.SHOELACE TIPPING MACHINE OPERATOR [address] [address] Dear Alexandra Arreguin APRN.SHOELACE TIPPING MACHINE OPERATOR: I had the pleasure of [...] 10points or more) please discuss with your grain unloader. Hallucinations: I am hoping that the reduction in Sinemet helps these, but if it does not and they are bothering you, please let me know. Dysphagia (difficulty swallowing): I am ordering speech therapy for this and your quiet speech Double vision: Please follow up with your device test engineer Left arm pain/numbness and tingling: I [...] them. These started before she moved to [place] and after she had her heart attack while in the hospital. Apathy: no She has motivation and is trying really hard to get out of the facility and move back [facility]. Impulse control disorder: No Palliative Concerns: Caregiver burden: Spiritual concerns: No Advanced directives on file: No I offered a SW consult but she wants to wait until she moves back to [place]. Palliative services: Therapy and Exercise: Last PT [...] the amplitude decrements starting after the 1st vcfi-ant-rmanb sequence. Arm Movements Right 1-Slight. a) the [...] Double vision: Please follow up with your device test engineer as scheduled Interested in clinical research? Not currently Updated Movement Disorders Medication Schedule: Medications 8AM 12PM 4PM 8PM Sinemet 25/100 2 1.5 1.5 1.5 Return at or around: 12/30/23 Level of service : 11282 ( 30-39 min). Time spent 37 min on the day of service, which included preparing to see the patient, hfzx-rc-mxra patient care, completing clinical documentation, obtaining and/or reviewing separately obtained history, performing a medically appropriate examination, counseling and educating the patient/family/caregiver, and ordering medications, tests, or procedures. Em Flynn APRN.SHOELACE TIPPING MACHINE OPERATOR documented in this encounterCleveland Clinic Lutheran Hospital06-12-2024 NoteIMPRESSION: INCOMPLETE: NEEDS ADDITIONAL IMAGING EVALUATION Probable benign nodule retroareolar region LEFT breast found using tomosynthesis today. Benign-appearing asymmetric glandular tissue upper outer aspect LEFT breast. Ultrasound correlation will be performed. LIMITED ULTRASOUND OF LEFT BREAST: 09/23/2023 RESULT: Comparison is made to exam dated: 08/13/2023 mammogram - [facility]. Ultrasound of was performed. Imaging was done [...] screening schedule is recommended. Ajay Bullock M.D. [facility], [facility]/gi:09/23/2023 10:55:35 Multiple national specialty organizations have released breast cancer screening guidelines for women at average risk for developing breast cancer - guidelines that are based on both evidence and opinion, yet differ on when to start and how often to screen for breast cancer. With representation from Breast Imaging, Internal Medicine, Women's Health, Family Medicine, and Medical/Surgical Oncology, the [facility] has carefully reviewed the data and [...] their providers when to stop screening mammograms. Claims Adjudicator(s): RT Yumiko(R)(Tonie), [facility]; RT Nicole(R), [facility] OVERALL STUDY BIRADS: 2 Benign finding Hotel Supplies Salesperson: Gi Transcribe Date/Time: Sep 23 2023 9:21A Dictated by : AJAY BULLOCK MD This examination was interpreted and the report reviewed and electronically signed by: AJAY BULLOCK MD on Sep 23 2023 10:55AM [facility] [id number] History of Present illness Narrative* Tiago Mcnamara [...] PATIENT PRESENTS WITH AN IMPLANTABLE OR ATTACHED TRADE ANALYST: No RADIOLOGY DEPARTMENT: Mammography PERIPHERAL IV DATA: [...] PATIENT PRESENTS WITH AN IMPLANTABLE OR ATTACHED TRADE ANALYST: No RADIOLOGY DEPARTMENT: Ultrasound PERIPHERAL IV DATA: Not applicable SIGNED BY: Virginie Rios RDMS September 23, 2023 10:39 AM documented in this encounterCleveland Clinic Lutheran Hospital06-12-2024 NoteHNO ID: [id number] Author: TIAGO MCNAMARA CT Service: Radiology Author [...] PATIENT PRESENTS WITH AN IMPLANTABLE OR ATTACHED TRADE ANALYST: No RADIOLOGY DEPARTMENT: Mammography PERIPHERAL IV DATA: Not applicable SIGNED BY: RT Yumiko September 23, 2023 9:42 [facility] HospitalArobjkzl26-16-2620 NoteHNO ID: [id number] Author: VIRGINIE RIOS RDMS Service: Radiology Author Type: Hassock Maker Type: Progress Notes Filed: 09/23/2023 10:39 Note [...] PATIENT PRESENTS WITH AN IMPLANTABLE OR ATTACHED TRADE ANALYST: No RADIOLOGY DEPARTMENT: Ultrasound PERIPHERAL IV DATA: Not applicable SIGNED BY: Virginie Rios RDMS September 23, 2023 10:39 [facility] [id number] Telephone encounter Note* Telephone Encounter - Mary Ann Villalobos - 09/02/2023 1:18 PM EDT Received call from Rissa at [facility]. Patient would like to complete Physical Therapy on-site at the facility. Order for PT faxed to their facility via [employer]. Mary Ann Villalobos [facility]05-22-2024 Miscellaneous Notes* Telephone Encounter - Mary Ann Villalobos - 09/02/2023 1:18 PM EDT Received call from Rissa at [facility]. Patient would like to complete Physical Therapy on-site at the facility. Order for PT faxed to their facility via [employer]. Mary Ann Villalobos documented in this encounterCleveland Clinic Lutheran Hospital05-16-2024 History of Present illness Narrative* Stephan Sheehan PA-C - 08/27/2023 1:40 PM EDT Images from the original note were not included. Stephan Sheehan PA-C [facility] [address] [place] [address] 08/27/2023 ASSESSMENT AND PLAN: Assessment : Encounter [...] today with this patient visit. This includes gzfu-rn-imkp time, review of chart records regarding conservative care history, spine- pertinent imaging, and communication/care coordination with referring provider, problem-specific history-taking and counseling/education regarding treatment options. cc: Em Flynn [phone] [address] Results of consultation to be transmitted via electronic medical record for those providers who practice within [facility] [place] or with access to [employer] via MD Connect, or via letter. ######################################################################## [...] L: 5/5 Triceps R: 5/5 L: 4/5 Cloth Checker R: 5/5 L: 5/5 Interossei R: +4/5 [...] discussion above documented in this encounterCleveland Clinic Lutheran Hospital05-03-2024 Note* Letter - Coordinator, Mammography - 08/14/2023 11:00 AM EDT August 14, 2023 PID: [id number] Monisha Cohn [address] [place] [address] Dear Ms. Cohn, Your recent breast imaging [...] so).Additional Imaging cannot be self scheduled in [place]. If you DO NOT have a healthcare provider (ie you did not have an order/prescription for your screening mammogram): Please call to schedule an appointment for your additional imaging (if you have not already done so). Additonal Imaging cannot be self scheduled in [place]. This exam cannot be self scheduled in [place]. You must have an order/prescription from your physician when calling to schedule your appointment. If your order/prescription is not electronic, you must bring the hard copy with you on the day of your exam Your imaging studies and reports are kept on file at [facility] as part of your permanent medical record, and are available for your continuing care. Thank you for allowing us to help in meeting your health care needs. Sincerely, Dr. Castellanos Interpreting Radiologist [facility] (Additional imaging) [facility]05-03-2024 Miscellaneous Notes* Letter - Coordinator, Mammography - 08/14/2023 11:00 AM EDT August 14, 2023 PID: [id number] Monisha Songtke [address] [place] [address] Dear Ms. Cohn, Your recent breast imaging [...] so).Additional Imaging cannot be self scheduled in [place]. If you DO NOT have a healthcare provider (ie you did not have an order/prescription for your screening mammogram): Please call to schedule an appointment for your additional imaging (if you have not already done so). Additonal Imaging cannot be self scheduled in [facility]. This exam cannot be self scheduled in [facility]. You must have an order/prescription from your physician when calling to schedule your appointment. If your order/prescription is not electronic, you must bring the hard copy with you on the day of your exam Your imaging studies and reports are kept on file at [facility] as part of your permanent medical record, and are available for your continuing care. Thank you for allowing us to help in meeting your health care needs. Sincerely, Dr. Castellanos Interpreting Radiologist [facility] (Additional imaging) documented in this encounterCleveland Clinic Luther[facility] Hospital05-02-2024 History of Present illness Narrative* Tiago [...] PATIENT PRESENTS WITH AN IMPLANTABLE OR ATTACHED TRADE ANALYST: No RADIOLOGY DEPARTMENT: Bone Density and Mammography PERIPHERAL IV DATA: Not applicable SIGNED BY: ANCA López August 13, 2023 2:15 PM documented in this encounterCleveland Clinic Lutheran Hospital05-02-2024 NoteHNO ID: [id number] Author: TIAGO MCNAMARA CT Service: Radiology Author [...] PATIENT PRESENTS WITH AN IMPLANTABLE OR ATTACHED TRADE ANALYST: No RADIOLOGY DEPARTMENT: Bone Density and Mammography PERIPHERAL IV DATA: Not applicable SIGNED BY: ANCA López August 13, 2023 2:15 PMTrinity Health System East [id number] Telephone encounter Note* Telephone Encounter - Em Flynn APRN.SHOELACE TIPPING MACHINE OPERATOR - 08/03/2023 6:17 PM EDT I [...] to her appointments. STONE Lockhart [facility]04-22-2024 Miscellaneous Notes* Telephone Encounter - Em [...] STONE Lockhart documented in this encounterCleveland Clinic Lutheran Hospital03-25-2024 Instructions* Patient Instructions* Em Flynn APRN.CNP [...] 10points or more) please discuss with your grain unloader. Date/Time BP Sitting Heart Rate Sitting BP Standing Heart Rate Standing Hallucinations: I am hoping that the reduction in Sinemet helps these, but if it does not and they are bothering you, please let me know. Dysphagia (difficulty swallowing): I am ordering speech therapy for this and your quiet speech Vision changes: Please follow up with your device test engineer. Left arm pain/numbness and tingling: I have ordered a neck MRI. Movement Disorders Medication Schedule: Medications 8AM 12PM 4PM 8PM Sinemet 25/100 2 1.5 1.5 1.5 Return in about 3 months (around 10/06/2023). If there are any concerns before your next visit, please call or you can send a message through [employer]. You can also now schedule and select appointments through [employer]. Em Flynn APRN.RUPALI documented in this encounterC[facility]24 History of Present illness Narrative* Em Flynn APRN.CNP - 07/06/2023 8:22 AM EDT [facility] - FOLLOW UP EVALUATION Alexandra Arreguin APRN.SHOELACE TIPPING MACHINE OPERATOR [address] [address] Dear Alexandra Arreguin APRN.CNP: I had the [...] points or more) please discuss with your grain unloader. Date/Time BP Sitting Heart Rate Sitting BP [...] They still want to move back to [place]. She was discharged from physical therapy. She [...] them. These started before she moved to [place] and after shehad her heart attack while in the hospital. Apathy: no She has motivation and is trying really hard to get out of the facility. Impulse control disorder: No Palliative Concerns: Caregiver burden: Spiritual concerns: No Advanced directives on file: No I offered a SW consult but she wants to wait until she moves back to [place]. Palliative services: Therapy and Exercise: Last PT [...] the amplitude decrements starting after the 1st ruka-uww-uofbo sequence. Arm Movements Right 1-Slight. a) the [...] 10points or more) please discuss with your grain unloader. Date/Time BP Sitting Heart Rate Sitting BP Standing Heart Rate Standing Hallucinations: I am hoping that the reduction in Sinemet helps these, but if it does not and they are bothering you, please let me know. Dysphagia (difficulty swallowing): I am ordering speech therapy for this and your quiet speech Vision changes: Please follow up with your device test engineer. Left arm pain/numbness and tingling: I have ordered a neck MRI. Updated Movement Disorders Medication Schedule: Medications 8AM 12PM 4PM 8PM Sinemet 25/100 2 1.5 1.5 1.5 Level of service : 04009 (40-54 min). Time spent 45 min on the day of service, which included preparing to see the patient, uezk-lo-ksfl patient care, completing clinical documentation, obtaining and/or reviewing separately obtained history, performing a medically appropriate examination, counseling and educating the patient/family/caregiver, and ordering medications, tests, or procedures. Em Flynn APRN.SHOELACE TIPPING MACHINE OPERATOR documented in this encounterC[facility]01-19-2024 Discharge summary Author Law Gold [facility] May 01, 2023 4:21pm Note Date/Time May 01, 2023 1 :42pm [facility] Medical Records Department [address] [place] [address] Emergency Department Summary 05/01/23 MR#: [id number] Acct: [id number] Name: MONISHA COHN Rep #:[id number] 9 : 1940 83 From: Law Longoria [...] any other injuries. Patient denies any lacerations. 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 Call [facility] ([phone]) or report to the closest Emergency Room. Call 911 if necessary. 05/01/23 1621 <Electronically signed by Law Gold DO> Cosigner Signature (if applicable): CC: LOAN APPROVER-C Alexandra Arreguin ~ Signed [facility] Work Phone: 1(407) 905-915610-27-2023 Discharge summary Author Darline Lundy [facility] February 06, 2023 2:09pm Note Date/Time February 06, 2023 1 2:33pm [facility] Medical Records Department [address] [place] [address] Transfer to [facility] MR#: [id number] Acct: [id number] Name: MONISHA COHN Rep #:[id number] 4 : 1940 82 From: Darline Lundy MD PCP: JACQUI Ann Status:ADM IN Certification of patient admission REQUIRED AT TIME OF ADMISSION. I CERTIFY THAT POST-HOSPITAL ECF SERVICES ARE REQUIRED TO BE GIVEN ON AN IN-PATIENT BASIS BECAUSE OF THE ABOVE NAMED PATIENT'S NEED FOR LONGTERM CARE ON A CONTINUING BASIS FOR THE [...] skin hue, Obesity who [facility] with history of [...] - Active Staff] - 02/18/23 Alexandra Arreguin LOAN APPROVER, LOAN APPROVER-C [Primary Care Provider] - Disposition Disposition (needs filled in before D/C Order can be placed): Shelter Facility (1) Closed hip fracture Qualifiers: Encounter type: initial encounter Laterality: left Qualified Code(s): S72.002A - Fracture of unspecified part of neck of left femur, initial encounterfor closed fracture 02/06/23 1233 <Electronically signed by Darline Lundy MD> Cosigner Signature (if applicable): CC: LOAN APPROVER-C Alexandra Arreguin; Dr. Jasmin Steele MD; Dr. Davian Grier DO ~ ADDENDUM by Dr. Darline Lundy MD on 02/06/23 at 1409 Addendum COREG STOPPED D/T BP STILL BEING ON LOW SIDE, PT ASYMPTOMATIC HOWEVER, NO OTHER CHANGES MADE 02/06/23 1409 <Electronically signed by Darline Lundy MD> cc: LOAN APPROVER-Mariajose Arreguin; Dr. Jasmin Steele MD; Dr. Davian Grier DO ~* Signed [facility] Work Phone: [phone]) 356-772910-27-2023 Discharge summary Author Darline Lundy [facility] February 06, 2023 2:09pm Note Date/Time February 06, 2023 1 2:35pm [facility] Medical Records Department [address] [place], [place] [address] [place] [address] Discharge Summary 02/06/23 1234 MR#: [id number] Acct: [id number] Name: MONISHA CONH Rep #:[id number] 8 : 1940 82 From: Darline Lundy MD PCP: JACQUI Ann Status:ADM IN Location: [facility]-4 Providers Date of Admission: 02/01/23 Date of [...] skin hue, Obesity who [facility] with history of [...] skin hue, Obesity who [facility]23 with history of [...] % (Auto) 55.6, Lymph % (Auto) 30.5, [place] % (Auto) 10.2 H, Eos % (Auto) [...] Active Staff] - 02/18/23 Alexandra Arreguin NP, LOAN APPROVER-C [Primary Care Provider] - Disposition Disposition (needs filled in before D/C Order can be placed): Shelter Facility Charges/Coding Visit Charges Inpatient E&M: 55309 Disch Hosp >30min 02/06/23 1235 <Electronically signed [...] Signed [facility] Work Phone: 1(223) 602-619910-26-2023 Progress note Author Darline Lundy [facility] February 05, 2023 5:07pm Note Date/Time February 05, 2023 4 :55pm [facility] Medical Records Department [address] [place] [address] [place] [address] Progress Note - Hospitalist 02/05/23 1651 MR#: [id number] Acct: [id number] Name: MONISHA COHN Rep #:[id number] 6 : 1940 82 From: Darline Lundy MD PCP: Alexandra Arreguin, LOAN APPROVER-C Status:ADM IN Location: [facility] SR071-6 Reason for Visit Reason for Visit: Diagnoses [...] (Auto) 67.7, Lymph % (Auto) 18.8 L, [place] % (Auto) 11.3 H, Eos % (Auto) [...] documentation, 26minutes Charges/Coding Visit Charges Inpatient E&M: 08371 Subs Hosp L1 02/05/23 1707 <Electronically signed by Darline Lundy MD> Cosigner Signature (if applicable): CC: ~ Signed [facility] Work Phone: 1(117) 169-503710-25-2023 Progress note Author Darline Lundy [facility] February 04, 2023 8:56am Note Date/Time February 04, 2023 7 :12am [facility] Medical Records Department [address] [place] [address] Progress Note - Hospitalist 02/04/23 0710 MR#: [id number] Acct: [id number] Name: MONISHA COHN Rep #:[id number] 6 : 1940 82 From: Darline Lundy MD PCP: Alexandra Arreguin, LOAN APPROVER-C Status:ADM IN Location: MS3 [id number] Reason for Visit Reason for Visit: Diagnoses [...] 70.8 H, Lymph % (Auto) 15.0 L, [place] % (Auto) 12.4 H, Eos % (Auto) [...] documentation, 40minutes Charges/Coding Visit Charges Inpatient E&M: 37640 Subs Hosp L2 02/04/23 0856 <Electronically signed by Darline Lundy MD> Cosigner Signature (if applicable): CC: ~ Signed [facility] Work Phone: 1(324) 130-287910-24-2023 Progress note Author Darline Lundy [facility] February 03, 2023 10:04am Note Date/Time February 03, 2023 7 :22am [facility] Medical Records Department [address] [place] [address] Progress Note - Hospitalist 02/03/23 0717 MR#: [id number] Acct: [id number] Name: MONISHA COHN Rep #:[id number] 2 : 1940 82 From: Darline Lundy MD PCP: JACQUI Ann Status:ADM IN [facility] Reason for Visit Reason for Visit: Diagnoses [...] 71.1 H, Lymph % (Auto) 14.6 L, [place] % (Auto) 13.2 H, Eos % (Auto) [...] documentation, 40minutes Charges/Coding Visit Charges Inpatient E&M: 11415 Subs Hosp L2 02/03/23 1004 <Electronically signed by Darline Lundy MD> Cosigner Signature (if applicable): CC: ~ Signed [facility] Work Phone: 1(232) 518-614510-24-2023 Progress note Author Jaylon Boone [facility] February 03, 2023 7:05am Note Date/Time February 03, 2023 7 :05am [facility] Medical Records Department [facility] [place] [address] Progress Note - Hospitalist 02/03/23 07 MR#: [id number] Acct: [id number] Name: MONISHA COHN Rep #:[id number] 4 : 1940 82 From: Jaylon Fontana PCP: JACQUI Ann Status:ADM IN Location: [place] [address] Hospitalist Note Since hemoglobin dropped from 9.1-5.6 [...] Signed [facility] Work Phone: 1(421) 550-799910-24-2023 Progress note Author Davian Grier [facility] February 03, 2023 6:03am Note Date/Time February 03, 2023 6 :03am [facility] Medical Records Department [address] [place] [address] Progress Note - Orthopedic 02/03/23 0601 MR#: [id number] Acct: [id number] Name: MONISHA COHN Rep #:[id number] 1 : 1940 82 From: Davian beasley DO PCP: JACQUI Ann Status:ADM IN Location: [place] [address] Subjective Subjective Patient seen and examined. Pain [...] % (Auto) 62.1, Lymph % (Auto) 25.2, [place]% (Auto) 11.7 H, Eos % (Auto) 0.3, [...] Signed [facility] Work Phone: 1(394) 167-300810-24-2023 Discharge summary Author Law Gold [facility] February 03, 2023 12:29am Note Date/Time February 01, 2023 2 :21pm [facility] Medical Records Department [address] [place] [address] Emergency Department Summary 02/01/23 MR#: [id number] Acct: [id number] Name: MONISHA COHN Rep #:[id number] 7 : 1940 82 From: Niko OSMAN PCP: Alexandra Arreguin, LOAN APPROVER-C Status:ADM IN Location: [facility]3 WA703-0 [facility] <JACQUI Cano - Last Filed: 02/01/23 15:12> History of Present Illness Chief Complaint: Fall Narrative Narrative: Patient is a 82-year-old female with history of Parkinson disease, CAD, IL who presents to the emergency department after [...] does live with her and her daughter REPLACED BY [facility] <JACQUI Cano - Last Filed: 02/01/23 15:12> REPLACED BY [facility] Medical History Atherosclerotic heart disease of chipewwa coronary artery without angina pectoris Bladder spasms [...] Oxygen Delivery Method Room Air Room Air [facility] <JACQUI Cano - Last Filed: 02/01/23 15:12> [facility] Lab Data Labs: Laboratory Results - last 24 hr 02/01/23 14:05 WBC 4.8 RBC 3.93 L Hgb 10.8 L Hct 35.2 L MCV 89.6 MCH 27.5 MCHC 30.7 L RDW Std Deviation 41.8 RDW Coeff of Aleena 12.6 Plt Count 255 MPV 8.7 Immature Gran % (Auto) 0.200 Neut % (Auto) 60.2 Lymph % (Auto) 28.0 [place]oup[place] % (Auto) 8.9 Eos % (Auto) 1.7 [...] 14:52 EDT Reading Location ID and State: [id number] / [place] [employer] , Service support , Chest X-Ray 02/01/23 14:00 IMPRESSION: Normal x-ray examination of the chest. Electronically Signed: Chun Martinez MD at 14:53 EDT , Femur X-Ray 02/01/23 14:00 IMPRESSION: Acute distracted fracture of the intertrochanteric left femur. Electronically Signed: Chun Martinez MD at 14:55 EDT Reading Location ID and State: 2657 / [place] [employer] , Service support , Pelvis X-Ray 02/01/23 14:00 IMPRESSION: Acute distracted fracture of the intertrochanteric left femur. Electronically Signed: Chun Martinez MD at 14:54 EDT Reading Location ID and State: 1407 / [place] [employer] , Service support , Elbow X-Ray 02/01/23 15:12 IMPRESSION: Normal x-ray examination of the elbow. Electronically Signed: Chun Martinez MD at 15:29 EDT Reading Location ID and State: 9317 / [place] [employer] , Service support , EKG EKG shows a normal sinus rhythm: Attestation: I personally reviewed and interpreted this EKG as follows: Comments: Normal sinus rhythm, rate of 71 bpm, IN 150 ms, QRS duration 68 ms. No [...] Gold, DO - Last Filed: 02/01/23 15:58> [facility] Narrative Medical decision making narrative: I have [...] % (Auto) 60.2 Lymph % (Auto) 28.0 [place] % (Auto) 8.9 Eos % (Auto) 1.7 [...] 14:52 EDT Reading Location ID and State: [employer] [employer] , Service support , Chest X-Ray 02/01/23 14:00 IMPRESSION: Normal x-ray examination of the chest. Electronically Signed: Chun Martinez MD at 14:53 EDT Reading Location ID and State: [employer] , Service support , Femur X-Ray 02/01/23 14:00 IMPRESSION: Acute distracted fracture of the intertrochanteric left femur. Electronically Signed: Chun Martinez MD at 14:55 EDT Reading Location ID and State: [employer] , Service support , Pelvis X-Ray 02/01/23 14:00 IMPRESSION: Acute distracted fracture of the intertrochanteric left femur. Electronically Signed: Chun Martinez MD at 14:54 EDT Reading Location ID and State: [employer] , Service support , Elbow X-Ray 02/01/23 15:12 IMPRESSION: Normal x-ray examination of the elbow. Electronically Signed: Chun Martinez MD at 15:29 EDT Reading Location ID and State: [employer] , Service support , Discharge Plan [...] your Primary Care Provider. Call [facility] ([phone]) or report to the closest Emergency Room. Call 911 if necessary. 02/02/232110 <Electronically signed by Niko LANDAC> Cosigner Signature (if applicable): 02/03/23 0029 <Electronically signed by Law Gold DO> CC: LOAN APPROVER-C Alexandra Arreguin ~ Signed [facility] Work Phone: 1(435) 956-546810-23-2023 Procedure [facility] 02-02-2023 Progress note Author Darline Lundy [facility] February 02, 2023 10:59am Note Date/Time February 02, 2023 7 :44am [facility] Medical Records Department [address] [place] [address] Progress Note - Hospitalist 02/02/23 0739 MR#: [id number] Acct: [id number] Name: MONISHA COHN Rep #:[id number] 1 : 1940 82 From: Darline Lundy MD PCP: JACQUI Ann Status:ADM IN Location: [place] [address] Reason for Visit Reason for Visit: Diagnoses [...] % (Auto) 60.2, Lymph % (Auto) 28.0, [place]% (Auto) 8.9, Eos % (Auto) 1.7, Baso [...] % (Auto) 62.1, Lymph % (Auto) 25.2, [place]% (Auto) 11.7 H, Eos % (Auto) 0.3, [...] 14:52 EDT Reading Location ID and State: [employer] [employer] , Service support , Chest X-Ray 02/01/23 14:00 IMPRESSION: Normal x-ray examination of the chest. Electronically Signed: Chun Martinez MD at 14:53 EDT Reading Location ID and State: [employer] , Service support , Femur X-Ray 02/01/23 14:00 IMPRESSION: Acute distracted fracture of the intertrochanteric left femur. Electronically Signed: Chun Martinez MD at 14:55 EDT Reading Location ID and State: [employer] , Service support , Pelvis X-Ray [...] documentation, 36minutes Charges/Coding Visit Charges Inpatient E&M: 51039 Subs Hosp L2 02/02/23 1059 <Electronically signed by Darline Lundy MD> Cosigner Signature (if applicable): CC: ~ Signed [facility] Work Phone: 1(121) 419-824110-22-2023 Progress note Author [facility] Paolo [facility] February 01, 2023 9:42pm Note Date/Time February 01, 2023 9 :42pm [facility] Medical Records Department [address] [place] [address] Progress Note - Hospitalist 02/01/232141 MR#: [id number] Acct: [id number] Name: MONISHA COHN Rep #:[id number] 1 : 1940 82 From: Jaylon Fontana PCP: Alexandra Arreguin LOAN APPROVER-C Status:ADM IN Location: [facility] VM489-8 Hospitalist Note As per the nurse, patient changed her mind from DNRCC arrest to full code. She wants to be full code. CODE STATUS changed to full code. 02/01/232141 <Electronically signed by Jaylon Boone MD> Cosigner Signature (if applicable): CC: ~ Signed [facility] Work Phone: 1(351) 972-237610-22-2023 Consult note Author Davian Grier [facility] February 01, 2023 7:27pm Note Date/Time February 01, 2023 7 :27pm [facility] Medical Records Department [address] [place] [address] Consultation - Orthopedics 02/01/231921 MR#: [id number] Acct: [id number] Name: MONISHA COHN Rep #:[id number] 3 : 1940 82 From: Davian beasley DO PCP: SYEDA AnnC Status:ADM IN Location: [facility]3 FD467-7 HPI Consult Data Date of Consult: 02/01/23 [...] in the past. Denies history of VTE. REPLACED BY [facility] Medical History (Updated 02/01/23 @ 19:[address] Davian Grier, ) Atherosclerotic heart disease of chipewwa coronary artery without angina pectoris Bladder spasms [...] % (Auto) 60.2, Lymph % (Auto) 28.0, [place]% (Auto) 8.9, Eos % (Auto) 1.7, Baso [...] 14:52 EDT Reading Location ID and State: [employer] , Service support , Chest X-Ray 02/01/23 14:00 IMPRESSION: Normal x-ray examination of the chest. Electronically Signed: Chun Martinez MD at 14:53 EDT Reading Location ID and State: [employer] , Service support , Femur X-Ray 02/01/23 14:00 IMPRESSION: Acute distracted fracture of the intertrochanteric left femur. Electronically Signed: Chun Martinez MD at 14:55 EDT Reading Location ID and State: [employer] , Service support , Pelvis X-Ray 02/01/23 14:00 IMPRESSION: Acute distracted fracture of the intertrochanteric left femur. Electronically Signed: Chun Martinez MD at 14:54 EDT Reading Location ID and State: [employer] , Service support , Elbow X-Ray [...] Signed [facility] Work Phone: 1(172) 915-244710-22-2023 History and physical note Author Jasmin Steele [facility] February 01, 2023 4:28pm Note Date/Time February 01, 2023 3 :26pm [facility] Medical Records Department [address] [place] [address] H&P Exam - Hospitalist 02/01/23 1526 MR#: [id number] Acct: [id number] Name: MONISHA COHN Rep #:[id number] 3 : 1940 82 From: Jasmin Steele MD PCP: SYEDA AnnC Status:ADM IN Location: MS3 ME875-6 HPI - General General Date of Admission: 02/01/23 Date of Service: 02/01/23 Chief Complaint: Fall, L hip pain. HPI Narrative The patient is an 82 y/o F w/ PMHx: CAD s/p PCI, HTN, HLD, COPD, Parkinson's disease, Chronic urgency/bladder spasms following with Urology, Gout, Fibromyalgia, Hx usage silver water with chronically silver skin hue, Obesity who [facility] with history of [...] She notes she is able to tolerate Tingley and per daughter Dilaudid low-dose. In the ED she was administered Zofran 4 mg IV x2 and morphine 4 mg IV x2 and did not have a significant reaction thus far but discussed and if any concerns arise or hives would administer medications as needed. REPLACED BY [facility] Medical History (Updated 02/01/23 @ 16:[address] Jasmin Steele MD) Atherosclerotic heart disease of chipewwa coronary artery without angina pectoris Bladder spasms [...] History (Updated 02/01/23 @ 16:[address] Jasimn Steele MD) household members: friend(s) Smoking Status: [...] % (Auto) 60.2, Lymph % (Auto) 28.0, [place]% (Auto) 8.9, Eos % (Auto) 1.7, Baso [...] 14:52 EDT Reading Location ID and State: [employer] / [place] [employer] , Service support , Chest X-Ray 02/01/23 14:00 IMPRESSION: Normal x-ray examination of the chest. Electronically Signed: Chun Martinez MD at 14:53 EDT Reading Location ID and State: [employer] , Service support , Femur X-Ray 02/01/23 14:00 IMPRESSION: Acute distracted fracture of the intertrochanteric left femur. Electronically Signed: Chun Martinez MD at 14:55 EDT Reading Location ID and State: [employer] / [place] [employer] , Service support , Pelvis X-Ray 02/01/23 14:00 IMPRESSION: Acute distracted fracture of the intertrochanteric left femur. Electronically Signed: Chun Martinez MD at 14:54 EDT Reading Location ID and State: [employer] / [place] [employer] , Service support , Assessment & Plan Assessment/Plan (1) Closed hip fracture: PLAN: Plan The patient is an 82 y/o F w/ PMHx: CAD s/p PCI, HTN, HLD, COPD, Parkinson's disease, Chronic urgency/bladder spasms following with Urology, Gout, Fibromyalgia, Hx usage silver water with chronically silver skin hue, Obesity who [facility] with history of [...] 16 minutes. Charges/Coding Visit Charges Inpatient E&M: 07858 Init Hosp L3 Procedures Hospitalists Procedures: 73076 Advncd Care Plan 30 Min 02/01/23 1628 <Electronically signed by Jasmin Steele MD> Cosigner Signature (if applicable): CC: JACQUI Arreguin; Dr. Jasmin Steele MD~ Signed [facility] Work Phone: 1(855) 250-228210-10-2023 Instructions* Patient Instructions* Em Flynn APRN.SHOELACE TIPPING MACHINE OPERATOR - 01/20/2023 3:48 PM EDT [...] points or more) please discuss with your grain unloader. Date/Time BP Sitting Heart Rate Sitting BP [...] or you can send a message through [employer]. You can also now schedule and select appointments through [employer]. Em Flynn APRN.RUPALI documented in this encounterC[facility]10-10-2023 History of Present illness Narrative* Em Flynn APRN.CNP - 01/20/2023 3:00 PM EDT [facility] - FOLLOW UP EVALUATION Alexandra Arreguin APRN.CNP [address] [place] [id number] Dear Alexandra Arreguin APRN.CNP: I had the [...] exercising and going to physical therapy at [facility] and this is going well so she feels she is doing good. They are thinking about moving back to [place] as other than the above, they are [...] them. These started before she moved to [place] and after shehad her heart attack while [...] to wait until she moves back to [place]. Palliative services: Therapy and Exercise: Last PT [...] c) the amplitude decrements startingafter the 1st [id number] sequence. Hand Movements Left 2-Mild. a) 3 [...] been experiencing hallucinations since she moved to [place], but she was embarrassed so she said [...] and to have informationwhen discussing with her grain unloader. She also believes she has only been taking one of the two blood pressure medications prescribed (we called her grain unloader office and verified that she is supposed [...] points or more) please discuss with your grain unloader. Date/Time BP Sitting Heart Rate Sitting BP [...] Duloxetine 20mg 2 Level of service : 08451 (40-54 min). Time spent 50 min on the day of service, which included preparing to see the patient, hxww-ex-wjay patient care, completing clinical documentation, obtaining and/or reviewing separately obtained history, performing a medically appropriate examination, counseling and educating the patient/family/caregiver, and ordering medications, tests, or procedures. Em Flynn APRN.SHOELACE TIPPING MACHINE OPERATOR documented in this encounterCleveland [facility] Hospital06-29-2023 Miscellaneous Notes* Addendum Note - Linden Flynn MD - 10/09/2022 1:32 PM EDTAddended by: LINDEN FLYNN on: 10/09/2022 01:32 PM Modules accepted: Orders documented in this [facility] Instructions* Patient Instructions* Linden Flynn MD [...] or you can send a message through Mak[employer]. You can also now schedule and select appointments through [employer]. Linden Flynn MD documented in this encounterC[facility] History of Present illness Narrative* Linden [...] she used to. She moved here from [place]. She is blue from taking silver water [...] Achilles 2+ 2+ Plantar Downgoing Downgoing Coordination Fxxusa-tv-peor, rapid alternating movements and arml-eb-fcuv normal bilaterally without dysmetria. Gait Casual gait [...] c) the amplitude decrements startingafter the 1st caee-wsg-vswyy sequence. Hand Movements Left 3-Moderate. a) more than 5 interruptions during the movement or at least one longer arrest (freeze) in ongoing movement, b) moderate slowing, c) the amplitude decrements starting after the 1st myhl-mfw-akkgt sequence. Arm Movements Right 2-Mild. a) 3 [...] Flynn MD documented in this encounterC[facility] HospitalDischarge summary [facility] [address] [place] [address] Discharge Summary 01/25/25 1449 MR#: [id number] Acct: [id number] Name: MONISHA COHN Rep #:[id number] : 1940 84 From: Davian interiano MD PCP: Tressa Rosales Status:DIS IN Location: [facility] [id number] Providers Date of Admission: 01/20/25 Primary Care [...] and pulmonary hypertension, CAD; withRCA stent at [facility] in [place] (2009) and subsequent inferior wall ST elevation [place] s/p RCA stent with cardiogenic shock and [...] recently diagnosed COVID-19 who was transferred from [facility] she was diagnosed with an impacted Right [...] LOC with her fall. Dr. [facility] of [facility] spoke to Dr. Tijerina of [...] in before D/C Order can be placed): Shelter Facility Charges/Coding Visit Charges Inpatient E&M: 10205 Disch Hosp >30min 01/25/25 145 Cosigner Signature (if applicable): CC: Dr. Davian Kelly MD; Tressa Rosales~ [facility] Note Date/Time January 25, 2025 2 :52pm [facility] Medical Records Department [address] [place] [address] Discharge Summary 01/25/25 1449 MR#: [id number] Acct: [id number] Name: MONISHA COHN Rep #:[id number] : 1940 84 From: Davian interiano MD PCP: Tressa Rosales Status:DIS IN Location: [facility] [id number] Providers Date of Admission: 01/20/25 Primary Care [...] and pulmonary hypertension, CAD; withRCA stent at [facility] in [place] (2009) and subsequent inferior wall ST elevation [place] s/p RCA stent with cardiogenic shock and [...] recently diagnosed COVID-19 who was transferred from [facility] after she was diagnosed with [...] LOC with her fall. Dr. [facility] of [facility] spoke to Dr. Tijerina of [...] in before D/C Order can be placed): Shelter Facility Charges/Coding Visit Charges Inpatient E&M: 18408 Disch Hosp >30min 01/25/25 1452 <Electronically signed by Davian Kelly MD> Cosigner Signature (if applicable): CC: Dr. Davian Kelly MD; Tressa Rosales~ Signed [facility] Work Phone: Evaluation note* Diagnosis Onset Date Resolution Status Bladder spasms acute Edema, lower extremity acute Gout acute Hyperlipidemia acute Urgency of urination acute [facility] Work Phone: Evaluation note* Diagnosis Parkinson's disease (HCC)- Primary Paralysis agitans Argyria of skin, accidental or unintentional, sequela Depression, unspecified depression type documented [facility] this encounter [facility]* Diagnosis Parkinson's disease without dyskinesia or fluctuating manifestations- Primary Hallucinations Orthostatic hypotension Insomnia, unspecified type documented in this encounter [facility] note* Diagnosis Onset Date Resolution Status [...] sensation documented [facility] this encounter [facility]* Diagnosis Protrusion of cervical intervertebral disc- Primary documented in this encounter [facility]* Diagnosis Acute pain of left shoulder- Primary Protrusion of cervical intervertebral disc Pain in left elbow Pain in joint, upper arm documented [facility] this encounter [facility]* Diagnosis Chronic left shoulder pain- Primary Pain in joint, shoulder region documented [facility] this encounter [facility]* Diagnosis Parkinson's disease without dyskinesia or fluctuating manifestations (HCC)- Primary Orthostatic hypotension Hallucinations Dysphagia, unspecified type documented [facility] this encounter [facility]* Diagnosis Acute pain of left shoulder [facility] Chronic left shoulder pain Pain in joint, shoulder region [facility] Diagnosis Dysphagia, unspecified type- Primary Parkinson's disease without dyskinesia or fluctuating manifestations (HCC) Orthostatic hypotension documented [facility] this encounter [facility]* Diagnosis Dysphagia, unspecified type- Primary Parkinson's disease with dyskinesia without fluctuating manifestations (HCC) Numbness and tingling of both feet Hallucinations documented [facility] this encounter [facility]* Diagnosis Numbness and tingling of both feet documented in this encounter [facility]* Diagnosis Onset Date Resolution Status Admit Date 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 CAD (coronary artery disease) chroni c September 27, 2024 10:37am Essential (primary) hypertension chr onic September 27, 2024 10:37am Hyperlipidemia chronic September 27, 2024 10:37am Non-rheumatic mitral regurgitation chronic September 27, 2024 10:37am Parkinsons disease chronic September 112024 10:37am [facility] Work Phone: Reason for referral (narrative)* Diagnostic Procedure Only (Routine) - Pending Review Specialty Diagnoses / Procedures Referred By Contac t Referred To Contact XR IMAGING Diagnoses Chronic left shoulder pain Procedures XR SHOULDER GENERAL 3V OR MORE AP/TRUE AP/OTHER LEFT RADEX SHOULDER COMPLETE MINIMUM 2 VIEWS Claudia Manuel PA-C [address] [place] [address] [place] [address] Referral ID Status Reason Start Date Expiration Date Visits Requested Visits Authorized [id number] Pending Review Auto-Generat ed Referral 09/15/2023 10/13/2024 1 1 [facility] for referral (narrative)* Diagnostic Procedure Only (Routine) - Closed Specialty Diagnoses / Procedures Referred By Contac t Referred To Contact XR IMAGING Diagnoses Chronic left shoulder pain Procedures XR SHOULDER GENERAL 3V OR MORE AP/TRUE AP/OTHER LEFT RADEX SHOULDER COMPLETE MINIMUM 2 VIEWS Claudia Manuel PA-C [address] [place] [address] [place] [address] Referral ID Status Reason Start Date Expiration Date V isits Requested Visits Authorized [id number] Closed Auto-Generate d Referral 09/15/2023 10/13/2024 1 1 [facility] for referral (narrative)No reason for referral information availableWGlenbeigh [facility] Work Phone: Reercw for visit Narrative* Diagnostic Procedure Only (Routine) - Closed Specialty Diagnoses / Procedures Referred By Contac t Referred To Contact XR IMAGING Diagnoses Chronic left shoulder pain Procedures XR SHOULDER GENERAL 3V OR MORE AP/TRUE AP/OTHER LEFT RADEX SHOULDER COMPLETE MINIMUM 2 VIEWS Claudia Manuel PA-C [address] [place] [address] [place] [address] Referral ID Status Reason Start Date Expiration Date V isits Requested Visits Authorized [id number] Closed Auto-Generate d Referral 09/15/2023 10/13/2024 1 1 [facility] Chief Complaint and Reason for Visit [...] December 28, 2024 12:46pm Essential (primary) hypertension [facility] 2024 12:46pm Parkinsons disease December [...] December 28, 2024 12:46pm Essential (primary) hypertension [facility] 2024 12:46pm Parkinsons disease December [...] Procedures PROVIDER ORDERED FOLLOW UP OFFICE/OUTPATIENT [facility] MDM 60-74 MINUTES Linden Flynn MD [address] [place] [address] Referral ID Status Reason Start Date Expiration Date Visits Requested Visits Authorized [id number] Pending Review PCP Requested Referral 10/09/2022 01/07/2023 1 1 Specialty Diagnoses / Procedures Referred By Arely t Referred To Contact [facility] Diagnoses Parkinson's disease (HCC) Procedures CONSULT TO BISQUE KILN PLACER OCCUPATIONAL THERAPY EVAL HIGH COMPLEX 60 MINS Linden Flynn MD [address] [place] [address] [facility] [address] [address] Referral ID Status Reason Start Date Expiration Date Visits Requested Visits Authorized [id number] Pending Review Auto-Generat ed Referral 10/09/2022 10/09/2023 1 1 Specialty Diagnoses / Procedures Referred By Arely t Referred To Contact [facility] Diagnoses Parkinson's disease (HCC) Procedures CONSULT TO PHYSICAL THERAPY PHYSICAL THERAPY EVALUATION HIGH COMPLEX 45 MINS Linden Flynn MD [address] [place] [address] [facility] [address] [address] Referral ID Status Reason Start Date Expiration Date Visits Requested Visits Authorized [id number] Pending Review Auto-Generat ed Referral 10/09/2022 10/09/2023 1 1 Specialty Diagnoses / Procedures Referred By Contac t Referred To Contact MR IMAGING Diagnoses Spinal stenosis of cervical region Procedures MRI CERVICAL SPINE WO IVCON MRI SPINAL CANAL CERVICAL W/O CONTRAST MATRL Em Flynn, LIMO DRIVER.SHOELACE TIPPING MACHINE OPERATOR [address] [place] [phone] Mr [facility] [place] [address] Referral ID Status Reason Start Date Expiration Date Visits Requested Visits Authorized [id number] Authorized Auto-Generat ed Referral 07/06/2023 08/04/2024 1 1 Referral ID Status Reason Start Date Expiration Date V isits Requested Visits Authorized [id number] Closed Auto-Generate d Referral 07/06/2023 08/04/2024 1 1 Specialty Diagnoses / Procedures Referred By Contac t Referred To Contact [facility] [place] Diagnoses Protrusion of cervical intervertebral disc Procedures CONSULT TO [facility] OFFICE/OUTPATIENT [facility] 60 MINUTES Em Flynn, LIMO DRIVER.SHOELACE TIPPING MACHINE OPERATOR [address] [place] [phone] Referral ID Status Reason Start Date Expiration Date Visits Requested Visits Authorized [id number] Authorized PCP Requested Referral 08/03/2023 08/02/2024 1 1 Specialty Diagnoses / Procedures Referred By Contac t Referred To Contact Orthopedics Diagnoses Acute pain of left shoulder Pain in left elbow Procedures CONSULT TO ORTHOPAEDICS OFFICE/OUTPATIENT [facility] 60 MINUTES Stephan Sheehan PA-C [address] [phone] Referral ID Status Reason Start Date Expiration Date Visits Requested Visits Authorized [id number] Authorized PCP Requested Referral 08/27/2023 08/26/2024 1 1 Specialty Diagnoses / Procedures Referred By Contac t Referred To Contact [facility] Diagnoses Protrusion of cervical intervertebral disc Acute pain of left shoulder Pain in left elbow Procedures CONSULT TO PHYSICAL THERAPY PHYSICAL THERAPY EVALUATION HIGH COMPLEX 45 MINS Stephan Sheehan PA-C [address] [phone] [facility] [place] [address] [place] [address] Referral ID Status Reason Start Date Expiration Date Visits Requested Visits Authorized [id number] Pending Review Auto-Generat ed Referral 08/27/2023 08/26/2024 1 1 Specialty Diagnoses / Procedures Referred By Contac t Referred To Contact Diagnoses Parkinson's disease without dyskinesia or fluctuating manifestations (HCC) Procedures PROVIDER ORDERED FOLLOW UP OFFICE/OUTPATIENT NEW HIGH MDM 60 MINUTES Em Flynn, LIMO DRIVER.SHOELACE TIPPING MACHINE OPERATOR [address] [address] Referral ID Status Reason Start Date Expiration Date Visits Requested Visits Authorized [id number] Authorized PCP Requested Referral 12/30/2023 09/28/2024 1 1 Specialty Diagnoses / Procedures Referred By Contac t Referred To Contact [facility] Diagnoses Parkinson's disease without dyskinesia or fluctuating manifestations (HCC) Procedures CONSULT TO PHYSICAL THERAPY PHYSICAL THERAPY EVALUATION HIGH COMPLEX 45 MINS Em Flynn, PAT.SHOELACE TIPPING MACHINE OPERATOR [address] [address] [facility] [address] [place] [address] Referral ID Status Reason Start Date Expiration Date Visits Requested Visits Authorized [id number] Pending Review Auto-Generat ed Referral 09/29/2023 09/28/2024 1 1 Specialty Diagnoses / Procedures Referred By Contac t Referred To Contact [facility] Diagnoses Acute pain of left shoulder Procedures CONSULT TO PHYSICAL THERAPY PHYSICAL THERAPY EVALUATION HIGH COMPLEX 45 MINS Claudia Manuel PA-C [address] [place] [address] [facility] [address] [place] [address] Referral ID Status Reason Start Date Expiration Date Visits Requested Visits Authorized [id number] Pending Review Auto-Generat ed Referral 10/02/2023 10/01/2024 1 1 Referral ID Status Reason Start Date Expiration Date Visits Requested Visits Authorized [id number] Authorized PCP Requested Referral 12/30/2024 1 1 Specialty Diagnoses / Procedures Referred By Contac t Referred To Contact [facility] Diagnoses Parkinson's disease without dyskinesia or fluctuating manifestations (HCC) Dysphagia, unspecified type Procedures CONSULT TO SPEECH THERAPY OFFICE/OUTPATIENT [facility] 60 MINUTES Em Flynn APRN.SHOELACE TIPPING MACHINE OPERATOR [address] [address] [facility] [place] [address] [place] [address] Referral ID Status Reason Start Date Expiration Date Visits Requested Visits Authorized [id number] Pending Review Auto-Generat ed Referral 12/31/2023 12/30/2024 1 1 Advance Directives No Advanced Directives Records Found Advance Directive Response Recorded Date/ Time Living Will No February 01 1:49pm Power of Lathe Setup Operator No February 01, 2023 1:49pm Advance Directive Response Recorded Date/ Time Living Will No February 01 4:06pm Power of Lathe Setup Operator No February 01, 2023 4:06pm Advance Directive Response Recorded Date/ Time Name of Medical Power of Lathe Setup Operator Palmira, daughter , CHRISTY May 01, 2023 1:29pm Living Will No May 01 1:29pm Power of Lathe Setup Operator Yes May 01, 2023 1:29pm Advance Directive Response Recorded Date/ Time Do you have a Healthcare Power of Lathe Setup Operator? Yes January 20, 2025 1:18am Name of Medical Power of Lathe Setup Operator palmira mayer January 20, 2025 1:18am Summary [...] any alcohol or drug abuse patient.[facility] HospitalIn the event this information is protected by the Federal Confidentiality of Alcohol and Drug Abuse Patient Records regulations: The Federal rules restrict any use of the information to criminally investigate or prosecute any alcohol or drug abuse patient.[facility] HospitalIn the event this information is protected by the Federal Confidentiality of Alcohol and Drug Abuse Patient Records regulations: The Federal rules restrict any use of the information to criminally investigate or prosecute any alcohol or drug abuse patient.[facility] HospitalIn the event this information is protected by the Federal Confidentiality of Alcohol and Drug Abuse Patient Records regulations: The Federal rules restrict any use of the information to criminally investigate or prosecute any alcohol or drug abuse patient.[facility] HospitalIn the event this information is protected by the Federal Confidentiality of Alcohol and Drug Abuse Patient Records regulations: The Federal rules restrict any use of the information to criminally investigate or prosecute any alcohol or drug abuse patient.[facility] HospitalIn the event this information is protected by the Federal Confidentiality of Alcohol and Drug Abuse Patient Records regulations: The Federal rules restrict any use of the information to criminally investigate or prosecute any alcohol or drug abuse patient.[facility] HospitalIn the event this information is protected by the Federal Confidentiality of Alcohol and Drug Abuse Patient Records regulations: The Federal rules restrict any use of the information to criminally investigate or prosecute any alcohol or drug abuse patient.[facility] HospitalIn the event this information is protected by the Federal Confidentiality of Alcohol and Drug Abuse Patient Records regulations: The Federal rules restrict any use of the information to criminally investigate or prosecute any alcohol or drug abuse patient.[facility] HospitalIn the event this information is protected by the Federal Confidentiality of Alcohol and Drug Abuse Patient Records regulations: The Federal rules restrict any use of the information to criminally investigate or prosecute any alcohol or drug abuse patient.[facility] HospitalIn the event this information is protected by the Federal Confidentiality of Alcohol and Drug Abuse Patient Records regulations: The Federal rules restrict any use of the information to criminally investigate or prosecute any alcohol or drug abuse patient.[facility] HospitalIn the event this information is protected by the Federal Confidentiality of Alcohol and Drug Abuse Patient Records regulations: The Federal rules restrict any use of the information to criminally investigate or prosecute any alcohol or drug abuse patient.[facility] HospitalIn the event this information is protected by the Federal Confidentiality of Alcohol and Drug Abuse Patient Records regulations: The Federal rules restrict any use of the information to criminally investigate or prosecute any alcohol or drug abuse patient.[facility] HospitalIn the event this information is protected by the Federal Confidentiality of Alcohol and Drug Abuse Patient Records regulations: The Federal rules restrict any use of the information to criminally investigate or prosecute any alcohol or drug abuse patient.[facility] HospitalIn the event this information is protected by the Federal Confidentiality of Alcohol and Drug Abuse Patient Records regulations: The Federal rules restrict any use of the information to criminally investigate or prosecute any alcohol or drug abuse patient.[facility] HospitalIn the event this information is protected by the Federal Confidentiality of Alcohol and Drug Abuse Patient Records regulations: The Federal rules restrict any use of the information to criminally investigate or prosecute any alcohol or drug abuse patient.[facility] HospitalIn the event this information is protected by the Federal Confidentiality of Alcohol and Drug Abuse Patient Records regulations: The Federal rules restrict any use of the information to criminally investigate or prosecute any alcohol or drug abuse patient.[facility] HospitalIn the event this information is protected by the Federal Confidentiality of Alcohol and Drug Abuse Patient Records regulations: The Federal rules restrict any use of the information to criminally investigate or prosecute any alcohol or drug abuse patient.[facility] HospitalIn the event this information is protected by the Federal Confidentiality of Alcohol and Drug Abuse Patient Records regulations: The Federal rules restrict any use of the information to criminally investigate or prosecute any alcohol or drug abuse patient.[facility] HospitalIn the event this information is protected by the Federal Confidentiality of Alcohol and Drug Abuse Patient Records regulations: The Federal rules restrict any use of the information to criminally investigate or prosecute any alcohol or drug abuse patient.[facility] HospitalIn the event this information is protected by the Federal Confidentiality of Alcohol and Drug Abuse Patient Records regulations: The Federal rules restrict any use of the information to criminally investigate or prosecute any alcohol or drug abuse patient.[facility] HospitalIn the event this information is protected by the Federal Confidentiality of Alcohol and Drug Abuse Patient Records regulations: The Federal rules restrict any use of the information to criminally investigate or prosecute any alcohol or drug abuse patient.[facility] HospitalIn the event this information is protected by the Federal Confidentiality of Alcohol and Drug Abuse Patient Records regulations: The Federal rules restrict any use of the information to criminally investigate or prosecute any alcohol or drug abuse patient.[facility] Reason for Visit (unrecogniz ed section and content) Reason Comments New Patient Evaluation Reason Comments Parkinson's Disease Specialty Diagnoses / Procedures Referred By Arely carlson Referred To Contact Diagnoses Parkinson's disease Procedures PROVIDER ORDERED FOLLOW UP OFFICE/OUTPATIENT NEW HIGH MDM 60-74 MINUTES Linden Flynn MD [address] [place] [address] Referral ID Status Reason Start Date Expiration Date V isits Requested Visits Authorized [id number] Closed PCP Requested Referral 10/09/2022 01/07/2023 1 1 Reason Comments Follow Up Pt wants to discuss left arm pain and left groin pain Parkinson's Disease Specialty Diagnoses / Procedures Referred By Arely carlson Referred To Contact MR IMAGING Diagnoses Spinal stenosis of cervical region Procedures MRI CERVICAL SPINE WO IVCON MRI SPINAL CANAL CERVICAL W/O CONTRAST Em Walker APRN.RUPALI [address] [place] [address] [place] [address] Referral ID Status Reason Start Date Expiration Date V isits Requested Visits Authorized [id number] Closed Auto-Generate d Referral 07/06/2023 08/04/2024 1 1 Reason Comments Results Reason Comments Neck Pain Neck pain Left arm p ain. Would like to discuss MRI and X-ray Results. Specialty Diagnoses / Procedures Referred By Contac t Referred To Contact [facility] [place] Diagnoses Protrusion of cervical intervertebral disc Procedures CONSULT TO [facility] OFFICE/OUTPATIENT [facility] 60 MINUTES Em Flynn, PAT.SHOELACE TIPPING MACHINE OPERATOR [address] [place] [address] Referral ID Status Reason Start Date Expiration Date V isits Requested Visits Authorized [id number] Closed PCP Requested Referral 08/03/2023 08/02/2024 1 1 Reason Comments Parkinson's Disease Follow Up Reason Comments New Pain Specialty Diagnoses / Procedures Referred By Contac t Referred To Contact Orthopedics Diagnoses Acute pain of left shoulder Pain in left elbow Procedures CONSULT TO ORTHOPAEDICS OFFICE/OUTPATIENT [facility] 60 MINUTES Stephan Sheehan PA-C [address] [place] [address] Referral ID Status Reason Start Date Expiration Date V isits Requested Visits Authorized [id number] Closed PCP Requested Referral 08/27/2023 08/26/2024 1 1 Reason Comments Patient Update Patient 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 Radiology Mammogram Reason Comments Parkinson's Disease Specialty Diagnoses / Procedures Referred By Contac t Referred To Contact Diagnoses Parkinson's disease without dyskinesia or fluctuating manifestations (HCC) Procedures PROVIDER ORDERED FOLLOW UP OFFICE/OUTPATIENT [facility] 60 MINUTES Em Flynn, LIMO DRIVER.SHOELACE TIPPING MACHINE OPERATOR [address] [place] [phone] Referral ID Status Reason Start Date Expiration Date V isits Requested Visits Authorized [id number] Closed PCP Requested Referral 12/30/2023 09/28/2024 1 1 Reason Comments Parkinson's Disease Specialty Diagnoses / Procedures Referred By Contac t Referred To Contact Diagnoses Parkinson's disease without dyskinesia or fluctuating manifestations (HCC) Procedures PROVIDER ORDERED FOLLOW UP OFFICE/OUTPATIENT [facility] 60 MINUTES Em Flynn, LIMO DRIVER.SHOELACE TIPPING MACHINE OPERATOR [address] [place] [address] Phone: tel: fax: Referral ID Status Reason Start Date Expiration Date V isits Requested Visits Authorized [id number] Closed PCP Requested Referral 03/31/2024 12/30/2024 1 1 Reason Comments Neuropathy Specialty Diagnoses / Procedures Referred By Contac t Referred To Contact Neurology Diagnoses Numbness and tingling of both feet Numbness and tingling in both hands Procedures CONSULT TO NEUROLOGY OFFICE/OUTPATIENT [facility] 60 MINUTES Em Flynn, LIMO DRIVER.SHOELACE TIPPING MACHINE OPERATOR [address] [place] [address] Phone: tel: fax: Referral ID Status Reason Start Date Expiration Date V isits Requested Visits Authorized [id number] Closed PCP Requested Referral 06/28/2024 06/28/2025 1 1 Care Teams (unrecognized sec tion and content) Team Status: Active Member Role Status Dates Alexandra Arreguin LOAN APPROVER, LOAN APPROVER-C Primary Care Provider Active Team Status: Active Member Role Status Dates Alexandra Arreguin NP, LOAN APPROVER-C Primary Care Provider Active Dr. Law Gold , DO Emergency Provider Active Dr. Jasmin Steele MD Admit Provider, Other Provider Active Dr. Davian Grier , DO Other Provider Active Dr. Darline Lundy MD Attending Provider, Other Provid er Active Team Status: Active Member Role Status Dates Alexandra Arreguin NP, LOAN APPROVER-C Primary Care Provider Active Dr. Law Gold , DO Emergency Provider Active Dr. Jasmin Steele MD Admit Provider, Other Provider Active Dr. Darline Lundy MD Other Provider Active Dr. Davian Grier , DO Other Provider Active Dr. Jaylon Boone MD Attending Provider Active Team Status: Active Member Role Status Dates Alexandra Arreguin NP, LOAN APPROVER-C Primary Care Provider Active Dr. Law Gold , DO Emergency Provider Active Dr. Jasmin Steele MD Admit Provider, Other Provider Active Dr. Darline Lundy MD Attending Provider, Other Provid er Active Dr. Davian Grier , DO Other Provider Active Team Status: Inactive Member Role Status Dates Alexandra Arreguin NP, LOAN APPROVER-C Primary Care Provider Active Dr. Danielle Vernon MD Attending Provider, Referring Pr ovider Active Team Status: Inactive Member Role Status Dates Alexandra Arreguin LOAN APPROVER, LOAN APPROVER-C Primary Care Provider Active Dr. Law Gold , DO Emergency Provider Active Dr. Jasmin Steele MD Admit Provider, Other Provider Active Dr. Darline Lundy MD Attending Provider Active Dr. Davian Grier , Other Provider Active Team Status: Inactive Member Role Status Dates Alexandra Arreguin LOAN APPROVER, LOAN APPROVER-C Primary Care Provider Active Dr. Law Gold , DO Emergency Provider Active Tax Appraiser Relationship Specialty Start Date End Date Alexandra Arreguin, LIMO DRIVER.SHOELACE TIPPING MACHINE OPERATOR [address] [place], [place] [phone] PCP - General Family Medicine 01/20/23 Team Status: Inactive Member Role Status Dates Alexandra Arreguin LOAN APPROVER, LOAN APPROVER-C Primary Care Provider, Referr ing Provider Active Dr. Danielle Vernon MD Attending Provider Active Team Status: Active Member Role Status Dates Alexandra Arreguin LOAN APPROVER, LOAN APPROVER-C Primary Care Provider Active Dr. Law Gold , DO Emergency Provider Active Dr. Jasmin Steele MD Admit Provider, Attending Prov ider Active Tax Appraiser Relationship Specialty Start Date End Date Alexandra Arreguin, LIMO DRIVER.SHOELACE TIPPING MACHINE OPERATOR [address] [place] [address] PCP - General Family Medicine 01/20/23 Tax Appraiser Relationship Specialty Start Date End Date Alexandra Arreguin, LIMO DRIVER.SHOELACE TIPPING MACHINE OPERATOR [address] [place] [address] PCP - General Family Medicine 01/20/23 Tax Appraiser Relationship Specialty Start Date End Date Alexandra Arreguin, LIMO DRIVER.SHOELACE TIPPING MACHINE OPERATOR [address] [place], [place] [phone] PCP - General Family Medicine 01/20/23 Tax Appraiser Relationship Specialty Start Date End Date Alexandra Arreguin, LIMO DRIVER.SHOELACE TIPPING MACHINE OPERATOR [address] [place] [address] PCP - General Family Medicine 01/20/23 Tax Appraiser Relationship Specialty Start Date End Date Alexandra Arreguin, LIMO DRIVER.SHOELACE TIPPING MACHINE OPERATOR [address] [place], [place] [phone] PCP - General Family Medicine 01/20/23 Tax Appraiser Relationship Specialty Start Date End Date Alexandra Arreguin, LIMO DRIVER.SHOELACE TIPPING MACHINE OPERATOR [address] [place], [place] [phone] PCP - General Family Medicine 01/20/23 Tax Appraiser Relationship Specialty Start Date End Date Alexandra Arreguin, LIMO DRIVER.SHOELACE TIPPING MACHINE OPERATOR [address] [place] [address] PCP - General Family Medicine 01/20/23 Tax Appraiser Relationship Specialty Start Date End Date Alexandra Arreguin, LIMO DRIVER.SHOELACE TIPPING MACHINE OPERATOR [address] [place] [address] PCP - General Family Medicine 01/20/23 Tax Appraiser Relationship Specialty Start Date End Date Alexandra Arreguin, LIMO DRIVER.SHOELACE TIPPING MACHINE OPERATOR [address] [place] [address] PCP - General Family Medicine 01/20/23 Tax Appraiser Relationship Specialty Start Date End Date Alexandra Arreguin, LIMO DRIVER.SHOELACE TIPPING MACHINE OPERATOR [address] [place] [address] PCP - General Family Medicine 01/20/23 Tax Appraiser Relationship Specialty Start Date End Date Alexandra Arreguin, LIMO DRIVER.SHOELACE TIPPING MACHINE OPERATOR [address] [place], [place] [phone] PCP - General Family Medicine 01/20/23 Tax Appraiser Relationship Specialty Start Date End Date Alexandra Arreguin, LIMO DRIVER.SHOELACE TIPPING MACHINE OPERATOR [address] [place], [place] [phone] PCP - General Family Medicine 01/20/23 Tax Appraiser Relationship Specialty Start Date End Date Alexandra Arreguin, LIMO DRIVER.SHOELACE TIPPING MACHINE OPERATOR [address] [place], [place] [phone] PCP - General Family Medicine 01/20/23 Tax Appraiser Relationship Specialty Start Date End Date Alexandra Arreguin, LIMO DRIVER.SHOELACE TIPPING MACHINE OPERATOR [address] [place], [place] [phone] PCP - General Family Medicine 01/20/23 Tax Appraiser Relationship Specialty Start Date End Date Alexandra Arreguin, LIMO DRIVER.SHOELACE TIPPING MACHINE OPERATOR [address] [place], [place] [phone] PCP - General Family Medicine 01/20/23 Tax Appraiser Relationship Specialty Start Date End Date Alexandra Arreguin, LIMO DRIVER.SHOELACE TIPPING MACHINE OPERATOR [address] [place], [place] [phone] PCP - General Family Medicine 01/20/23 Team Status: Active Member Role Status Dates Tressa HALL Primary Care Provider Active Team Status: Inactive Member Role Status Dates Alexandra Arreguin LOAN APPROVER, LOAN APPROVER-C Primary Care Provider Active Start: March 16, 2024 End: March 16, 2024 Alexandra Arreguin LOAN APPROVER, LOAN APPROVER-C Referring Provider Active Start: March 16, 2024 End: March 16, 2024 Dr. Danielle Vernon MD Attending Provider Active Start: March 16, 2024 End: March 16, 2024 Team Status: Inactive Member Role Status Dates Didi Lujan LOAN APPROVER, LOAN APPROVER-C Attending Provider Active Start: June 03, 2024 End: June 03, 2024 Didi Lujan LOAN APPROVER, LOAN APPROVER-C Referring Provider Active Start: June 03, 2024 End: June 03, 2024 Tressa HALL Primary Care Provider Active Start: June 03, 2024 End: June 03, 2024 Tax Appraiser Relationship Specialty Start Date End Date Alexandra Arreguin, PAT.SHOELACE TIPPING MACHINE OPERATOR [address] [place] [address] PCP - General Family Medicine 01/20/23 Team [...] 20, 2025 End: January 25, 2025 Dr. Stephna Martel DO Nurse Practitioner Active Start: January [...] Active Member Role/Relationship Status Dates [facility] Bobby ISABEL Primary care physician Active Start: January 20, 2025 Dr. Danielle Vernon MD Attending physician Active Start: January 20, 2025 Dr. Danielle Vernon MD Referring Provider Active Start: January 20, 2025 Team Status: Active Member Role/Relationship Status Dates [facility] Bobby ISABEL Primary care physician Active [...] Active Member Role/Relationship Status Dates [facility] Bobby ISABEL Primary care physician Active [...] physician Active Start: January 23, 2025 Dr. Stehpan Martel DO Nurse Practitioner Active Start: January [...] Team Status: Active Member Role/Relationship Status Dates [facility] ISABEL Primary care physician Active Start: January [...] section and content) DATE CREATED AUTHOR 10/02/2023 [facility] DATE CREATED AUTHOR AUTHOR'S ORGANIZ ATION 12/30/2024 [facility] DATE CREATED AUTHOR AUTHOR'S ORGANIZ ATION 01/22/2025 [facility] DATE CREATED AUTHOR AUTHOR'S ORGANIZ ATION 02/16/2025 [facility] FOR RECORDS PERTAINING TO PATIENTS [...] BE BASED ON THE PRIMARY CLINICAL RECORDS. [facility] [employer] provides no warranty or guarantee of the accuracy or completeness of information in this document.
[2025-04-07 16:21] LABS: Magnesium 1.7 mg/dL (1.5-2.2)
[2025-04-07] MEDS: 0.9% Saline Lock 10 ML Syringe IV ×3 (17:24→23:55)
[2025-04-07] MEDS: Famotidine 200 MG/20 ML MDV 20 MG in 0.9% Normal Saline (Pres. free 8 ML 300 MG IV ×2 (17:25→22:37)
[2025-04-07 17:59] LABS: Troponin T High Sens 4 HR 27 ng/L (<=14)
[2025-04-07] MEDS: MELATONIN 3 MG TABLET PO (22:34)
--- NOTE | 2025-04-07 23:43 | PCM.HOSP.N ---
Hospitalist Note Pt Afib/RVR with ventricular rate 140-160s. Scheduled PO metoprolol 25mg given at 2230, no effect on HR yet. BP 143/88, HR 146. I ordered metoprolol 5mg IV x1 and will reassess. 0105-pt is now back in SR w/HR 90.
[2025-04-08] VITALS (13 sets, daily range): BP systolic 113–119; BP diastolic 50–57; PULSE 64–88; RESP 16–18; TEMP 36.7–37; O2SAT 90–99; BMI 35.4
--- NOTE | 2025-04-08 01:13 | NURSING ---
Spoke with Tj, nurse at [facility] and he stated patients mendoza was put in [facility] and patients PICC line dressing was last changed on April 01,
--- NOTE | 2025-04-08 05:55 | ECHOD_ITS ---
Reason For Study Reason For Study: CHF Procedure This was a 2D Doppler, Color Flow transthoracic echocardiogram. Exam performed portable in patient room. Left Ventricle Normal LV size. Normal left ventricular thickness. The estimated ejection fraction is 65???70 %. Stage 2 diastolic dysfunction. Right Ventricle Normal RV size. Normal systolic function. Atria There is mild biatrial dilatation. Mitral Valve Mild diffuse mitral valve thickening. There is no mitral valve stenosis. Mild (1+) mitral valve insufficiency. Tricuspid Valve Normal tricuspid valve. There is no tricuspid stenosis. Moderate (2+) tricuspid valve insufficiency. Right ventricular systolic pressure estimated to be 60???65 mmHg. Severe pulmonary hypertension. Aortic Valve Trisinus/trileaflet aortic valve. Mild diffuse aortic valve thickening. There is no aortic valve stenosis. Trivial aortic valve insufficiency. Pulmonic Valve Normal pulmonic valve. There is no pulmonic valvular stenosis. Trivial pulmonic valve insufficiency. Great Vessels Ascending aorta normal size measured at 3.3 cm. IVC dilated with respiratory collapse. Right atrial pressure estimated at 5-10 mmHg. Pericardium/Pleural Moderate size left pleural effusion. MMode/2D Measurements & Calculations LVIDd: 4.6 cm IVSd: 0.74 cm LVOT diam: 2.0 cm LVIDs: 2.8 cm LVPWd: 0.92 cm LVOT area: 3.1 cm2 RVDd: 2.9 cm FS: 39.0 % Ao root diam: 3.3 cm LAV(MOD-bp): 65.7 ml LVAd ap4: 22.0 cm2 LAV(MOD-bp) Indexed: 34.8 ml/m2 LVLd ap4: 7.1 cm LAV(MOD-sp2): 61.9 ml EDV(MOD-sp4): 57.9 ml LAV(MOD-sp4): 69.7 ml EDV(sp4-el): 58.4 ml LVAs ap4: 9.5 cm2 LVLs ap4: 5.0 cm ESV(MOD-sp4): 17.4 ml ESV(sp4-el): 15.5 ml EF(MOD-sp4): 69.9 % EF(sp4-el): 73.5 % SV(MOD-sp4): 40.5 ml SV(sp4-el): 42.9 ml LA A4 area: 22.3 cm2 SI(MOD-sp4): 21.4 ml/m2 LA dimension(2D): 4.1 cm RA A4 area: 17.6 cm2 TAPSE: 2.3 cm Time Measurements MV dec time: 0.19 sec Doppler Measurements & Calculations MV E max jorge: 139.9 cm/sec Lat Peak E' Jorge: 10.0 cm/sec Med Peak E' Jorge: 8.1 cm/sec MV A max jorge: 103.1 cm/sec E/E' lat: 14.0 E/E' med: 17.2 MV E/A: 1.4 MV V2 max: 138.5 cm/sec MV P1/2t max jorge: 133.3 cm/sec Ao V2 max: 203.8 cm/sec MV max P.7 mmHg MV P1/2t: 56.6 msec Ao max P.6 mmHg MV V2 mean: 81.7 cm/sec Ao V2 mean: 140.6 cm/sec MV mean P.0 mmHg MV dec slope: 689.6 cm/sec2 Ao mean P.1 mmHg MV V2 VTI: 32.5 cm MVA(P1/2t): 3.9 cm2 Ao V2 VTI: 47.1 cm AV (velocity ratio): 0.59 MVA(VTI): 2.7 cm2 EMMANUEL(I,D): 1.8 cm2 EMMANUEL(V,D): 1.8 cm2 LV V1 max: 121.0 cm/sec SV(LVOT): 86.6 ml PA V2 max: 97.9 cm/sec LV V1 max P.9 mmHg LV V1 mean P.3 mmHg LV V1 mean: 84.7 cm/sec LV V1 VTI: 27.9 cm TR max jorge: 365.2 cm/sec TR max P.3 mmHg ECHO/Echo Complete Interpretation Summary The estimated ejection fraction is 65???70 %. Normal LV size. Normal left ventricular thickness. Stage 2 diastolic dysfunction. Mild (1+) mitral valve insufficiency. Moderate (2+) tricuspid valve insufficiency. Right ventricular systolic pressure estimated to be 60???65 mmHg. Severe pulmonary hypertension. Moderate size left pleural effusion. IVC dilated with respiratory collapse. Right atrial pressure estimated at 5-10 mmHg. Compared to previous echocardiogram 11/03/2024 no significant changes appreciate d. Ordering Physician: Jasmin Steele Performed By: Liyah Adamson, ADAM, RVT
[2025-04-08 06:58] LABS: Hematocrit 28.7 % (37-47); Hemoglobin 8.8 g/dL (12.0-15.0); Immature Granulocytes Count 0.050 X10^3/uL (0.0-0.0); Mean Corp Hgb Conc 30.7 g/dL (32-36); Mean Corpuscular Volume 82.5 fL (81-99); Mean Platelet Vol. 7.8 fl (6.2-12.0); NRBC Flagged by Analyzer 0 % (0-5); Platelet Count 464 K/mm3 (150-450); RBC Distribution Width CV 17.1 % (11.6-14.6); RBC Distribution Width SD 50.7 fl (35.1-43.9); Red Blood Count 3.48 M/mm3 (4.2-5.4); White Blood Count 6.7 K/mm3 (4.4-11.0)
[2025-04-08 07:18] LABS: Cholesterol 104 mg/dL (<=200); Low Density Lipoprotein Calc. 44 mg/dL; Triglycerides 47 mg/dL; Very Low Density Lipoprotein 9 mg/dL (5-40); cholesterol:hdl ratio screen 2.14
[2025-04-08 07:20] LABS: AST(SGOT) 15 U/L (<=31); Alanine Aminotransfer ALT/SGPT < 5 U/L (<=34); Albumin, Serum 2.9 g/dL (3.4-4.8); Alkaline Phosphatase 53 U/L (35-104); Anion Gap 9 (7-18); BUN 15 mg/dL (4-19); BUN/Creat Ratio 23.9 RATIO (10-20); Calcium,Total 8.1 mg/dL (7.6-11.0); Carbon Dioxide 25.0 mmol/L (20.0-29.0); Chloride 104 mmol/L (96-106); Estimated Creatinine Clearance 53.86 ml/min (50-250); Globulin 2.9 g/dL (2.2-4.2); Glucose 152 mg/dL (70-99); Potassium 4.2 mmol/L (3.5-5.1)
[2025-04-08] MEDS: Aspirin E.C. 81 MG Tablet PO (10:00)
--- NOTE | 2025-04-08 10:11 | PCM.PN.HOSP ---
Reason for Visit Chief Complaint: Dyspnea. Subjective Subjective Patient is an 85-year-old lady who presented with increasing shortness of breath. Objective Data Objective Data Vital Signs: Vital Signs Temp Pulse Resp BP Pulse Ox O2 Del Method 98.6 F 88 18 119/53 L 90 Room Air 04/08/25 03:40 04/08/25 10:00 04/08/25 07:35 04/08/25 03:40 04/08/25 08:09 04/08/25 08:09 Oxygen Delivery Method Room Air Weight: 87.8 kg Body Mass Index (BMI) 35.4 Intake & Output: Intake and Output for Last 24 Hours 04/06/25 04/07/25 04/08/25 23:59 23:59 23:59 Intake Total 20 / 20 Output Total 750 / 3450 3500 / 3500 Balance -730 / -3430 -3500 / -3500 Lab / Micro Data 04/08/25 06:40 04/08/25 06:40 Labs: Laboratory Results - last 24 hr 04/07/25 12:37: WBC 13.4 H, RBC 3.51 L, Hgb 9.0 L, Hct 29.5 L, MCV 84.0, MCH 25.6 L, MCHC 30.5 L, RDW Std Deviation 53.1 H, RDW Coeff of Aleena 17.2 H, Plt Count 418, MPV 7.6, Immature Gran % (Auto) 0.800, Neut % (Auto) 52.8, Lymph % (Auto) 11.9 L, [place] % (Auto) 7.3, Eos % (Auto) 27.0 H, Baso % (Auto) 0.2, Absolute Neuts (auto) 7.1, Absolute Lymphs (auto) 1.61, Nucleated RBC % 0, PT 17.0 H, INR 1.4, APTT 33.5, Sodium 137, Potassium 4.2, Chloride 106, Carbon Dioxide 23.3, Anion Gap 8, BUN 14, Creatinine 0.54 L, Est GFR (MDRD) Non-Af 91, BUN/Creatinine Ratio 26.5 H, Glucose 103 H, Calcium 8.0, Troponin T High Sens 31 H D, NT pro BNP II 1603, TSH 4.730 H, Free T4 1.20, Free T3 pg/dL 2.4 04/07/25 14:30: Phosphorus 3.0, Magnesium 1.7, Troponin T Hi Sens 2 Hr 24 H 04/07/25 17:20: Troponin T Hi Sens 4Hr 27 H 04/08/25 06:40: WBC 6.7, RBC 3.48 L, Hgb 8.8 L, Hct 28.7 L, MCV 82.5, MCH 25.3 L, MCHC 30.7 L, RDW Std Deviation 50.7 H, RDW Coeff of Aleena 17.1 H, Plt Count 464 H, MPV 7.8, Immature Gran % (Auto) 0.700, Neut % (Auto) 80.6 H, Lymph % (Auto) 17.1 L, [place] % (Auto) 1.2, Eos % (Auto) 0.1, Baso % (Auto) 0.3, Absolute Neuts (auto) 5.4, Absolute Lymphs (auto) 1.14, Nucleated RBC % 0, Sodium 138, Potassium 4.2, Chloride 104, Carbon Dioxide 25.0, Anion Gap 9, BUN 15, Creatinine 0.64 L, Estim Creat Clear Calc 53.86, Est GFR (MDRD) Non-Af 87, BUN/Creatinine Ratio 23.9 H, Glucose 152 H, Calcium 8.1, Total Bilirubin 0.41, AST 15, ALT < 5, Alkaline Phosphatase 53, Total Protein 5.8 L, Albumin 2.9 L, Globulin 2.9, Albumin/Globulin Ratio 1.0, Triglycerides 47, Cholesterol 104, LDL Cholesterol, Calc 44, VLDL Cholesterol 9, HDL Cholesterol 49, Cholesterol/HDL Ratio 2.14 Radiography Diagnostic Testing: Radiology Impression Chest X-Ray 04/07/25 13:20 IMPRESSION: Moderate pulmonary edema. Bibasilar opacities not excluded. Mild bilateral pleural effusions, right more than left. Reading Location: [facility] Physical Exam Narrative GENERAL: cooperative HEENT: Atraumatic; normocephalic EYES; Anicteric, Normal Conjunctiva NECK; supple, normal thyroid, RESPIRATORY: Diminished to auscultation CARDIOVASCULAR: Regular S1 S2, GI: soft, normoactive bowel sounds, : No Renal angle tenderness; EXTREMITIES: Edema involving both upper and lower extremities more significant in the right upper extremity. MUSCULOSKELETAL: 2 cm wound with granulating tissue right groin NEURO: Awake; no lateralizing signs. SKIN: Bluish coloration of face and hands, diffuse maculopapular rash on both upper and lower extremities PSYCH; Flat affect Assessment & Plan Assessment/Plan (1) Acute exacerbation of chronic heart failure: PLAN: Plan Patient is an 85-year-old lady who presented with increasing shortness of breath in addition to diffuse pruritic rash. Admitted to monitored bed for further management 1. Acute on chronic congestive heart failure with preserved ejection fraction ? Patient most recent echo from 10/30/2024 demonstrated LVEF of 65% with diastolic dysfunction and moderate CVA TVI with RSVP of 58 mmHg consistent with moderate pulmonary hypertension. Admitted to monitored bed manage with strict input and output, fluid restriction Daily weights as well as diuretic therapy with fluid 2. Diffuse pruritic rash of unclear etiology suspected drug rash ?Patient was on board patient did receive Solu-Medrol as well as H2 blockers with famotidine monitoring 3. Recent right hip prosthesis infection ? Patient grew MRSA and Klebsiella during her recent hospitalization. Patient was discharged on IV vancomycin with stop date of 04/13/2025 to be followed by 1 week course of p.o. Augmentin for Klebsiella coverage along suppressive p.o. Doxy 100 mg twice daily. Held doxycycline did continue vancomycin, consult placed to ID on admission. Consult also placed to wound care nurse 4. COPD ? Not in exacerbation aerosol treatments as needed 5. Coronary artery disease ? With previous PCI Patient is on guideline directed medical therapy 6. Parkinson's disease ? Did continue patient antiparkinsonian medications 7. Anemia ? Secondary to chronic disorder monitoring H&H and transfuse if patient becomes symptomatic or hemoglobin falls below 7 8. Hypertension ? Blood pressure controlled, home medications continued with dose adjustment as needed 9. Dyslipidemia ?Patient is on statin therapy, continued at home dose 10. Depression with anxiety - did continue home meds 11. Abnormal TSH Secondary to euthyroid syndrome plan is to repeat thyroid function test when patient is stable 12. Recent history of VTE in the right gastrocnemius vein ? [facility] she developed postop hematoma and this was subsequently discontinued. Repeat right lower extremity venous duplex ordered on admission 13. [place] - Secondary to remote use of silver water prescribed by a dietitian for treatment of fibromyalgia patient patient did quit use in the 80s 14. DVT prophylaxis ? Lovenox Time spent in the patient's overall evaluation,decision-making process, review of diagnostic data, adjustment of management, discussion with other providers, nursing nursing and ancillary staff involved in patient's care documentation, 50 Minutes Charges/Coding Visit Charges Inpatient E&M: 19681 Subs Hosp L3
--- NOTE | 2025-04-08 11:16 | PHA.PHARE_ITS ---
Consult Antibiotic Management Pharmacy has been consulted to manage selected antibiotic: Vancomycin Type of Intervention Type of Consult: New start Suspected Infection Suspected Infection: Other Prior Doses of Antibiotics Prior Doses of Antibiotics Received/Current Regimen: Was previously on 750 mg Q12H via home order. Labs Labs: Sodium 138 mmol/L (135-145) 04/08/25 06:40 Potassium 4.2 mmol/L (3.5-5.1) 04/08/25 06:40 Chloride 104 mmol/L (96-106) 04/08/25 06:40 Carbon Dioxide 25.0 mmol/L (20.0-29.0) 04/08/25 06:40 Anion Gap 9 (7-18) 04/08/25 06:40 BUN 15 mg/dL (4-19) 04/08/25 06:40 Creatinine 0.64 mg/dL (0.70-1.20) L 04/08/25 06:40 Est GFR (MDRD) Non-Af 87 (>60) 04/08/25 06:40 BUN/Creatinine Ratio 23.9 RATIO (10-20) H 04/08/25 06:40 Glucose 152 mg/dL (70-99) H 04/08/25 06:40 Dosing Weight Weight used for dosin kg Estimated Creatinine Clearance Estimated Creatinine Clearance: 53.9 Goal Trough Goal Trough: 15-20 mcg/mL Pharmacy Plan for Drug Dosing Pharmacy Plan for Drug Dosing: Pharmacy Service will continue to monitor and adjust dosing as required. NEW START IV VANCOMYCIN Consulting Physician: Dr. Torres Indication: Right hip prosthesis infection Goal Trough: 15-20 SrCr: 0.64 CrCl: 53.9 Comments: Continuing IV vanc order from home order s/p previous discharge. Vancomycin Dose: 750 mg Q12H with first dose 04/08 @ 1200 Pending Level: 04/09/25 @ 2337 Date/Time Labs Ordered Labs to be done on [date and time ordered]: 04/09/25 @ 2332
--- NOTE | 2025-04-08 13:53 | CASEMGMT ---
Addendum entered by Keira Gonzalez 04/08/25 14:45: Social Work Updates sent via [employer], SW also inquired via [employer] if pt can be taken out of precautions, which would help with the loneliness and isolation. WILLIE Her Original Note: SW met w/pt, she is here from [place] and plans to return. Pt will be here through the weekend, updates will be sent. [facility] a [facility]. SW completed the isolation scales w/pt. Pt likes to participate in activities at [facility] but has been in isolation due to MRSA. Pt is not in isolation here, SW will communicate to [facility] and see if they can take her out of isolation precautions. This would help a lot as pt does like to participate in daily activities at the SNF. WILLIE Her
[2025-04-08] MEDS: Vancomycin HCl 750 MG in 0.9% Normal Saline (250mL Bag) 250 ML 250 MG IV (14:17)
[2025-04-08] MEDS: hydrOXYzine PAM 25 MG Capsule PO (17:03)
[2025-04-08] MEDS: Juven (unflavored) Packet 1 PACKET PO (17:11)
[2025-04-08] MEDS: MELATONIN 3 MG TABLET PO (20:12)
--- NOTE | 2025-04-08 22:31 | NURSING ---
pt arrived to ED from facility with mendoza catheter placed for retention (04/07/25 @ 0845). Pt recieving IV lasix and has R hip wound with previous wound vac in place. No order to maintin mendoza was active. RN contacted provider to obtain current order to manage and maintain mendoza catheter.
[2025-04-09] VITALS (9 sets, daily range): BP systolic 114–156; BP diastolic 51–78; PULSE 63–77; RESP 14–18; TEMP 36.5–36.7; O2SAT 95–99; BMI 35.2
[2025-04-09] MEDS: Vancomycin HCl 750 MG in 0.9% Normal Saline (250mL Bag) 250 ML 250 MG IV ×2 (00:13→12:01)
[2025-04-09] MEDS: hydrOXYzine PAM 25 MG Capsule PO (02:56)
[2025-04-09 04:15] LABS: Hematocrit 28.2 % (37-47); Hemoglobin 8.7 g/dL (12.0-15.0); Immature Granulocytes Count 0.090 X10^3/uL (0.0-0.0); Mean Corp Hgb Conc 30.9 g/dL (32-36); Mean Corpuscular Volume 83.7 fL (81-99); Mean Platelet Vol. 8.2 fl (6.2-12.0); NRBC Flagged by Analyzer 0 % (0-5); Platelet Count 497 K/mm3 (150-450); RBC Distribution Width CV 17.2 % (11.6-14.6); RBC Distribution Width SD 52.4 fl (35.1-43.9); Red Blood Count 3.37 M/mm3 (4.2-5.4); White Blood Count 12.3 K/mm3 (4.4-11.0)
--- NOTE | 2025-04-09 04:45 | NURSING ---
Called out and update given to DILSHAD Asif at [facility] at this time.
[2025-04-09 05:03] LABS: Magnesium 1.8 mg/dL (1.5-2.2)
[2025-04-09 05:21] LABS: Anion Gap 10 (7-18); BUN 28 mg/dL (4-19); BUN/Creat Ratio 41.8 RATIO (10-20); Calcium,Total 8.8 mg/dL (7.6-11.0); Carbon Dioxide 26.5 mmol/L (20.0-29.0); Chloride 102 mmol/L (96-106); Estimated Creatinine Clearance 53.51 ml/min (50-250); Glucose 115 mg/dL (70-99); Potassium 4.0 mmol/L (3.5-5.1)
[2025-04-09] MEDS: Juven (unflavored) Packet 1 PACKET PO ×2 (09:16→17:45)
[2025-04-09] MEDS: Aspirin E.C. 81 MG Tablet PO (09:16)
--- NOTE | 2025-04-09 10:55 | PN_ITS ---
Subjective Subjective Patient seen and examined with her nurse by her bedside. She still complained of her generalized rash. She ahd itching with vancomycin yesterday also which resolved with vistaril. Review of systems is otherwise negative. She has remained hemodynamically stable. Objective Data Objective Data Vital Signs: Vital Signs Temp Pulse Resp BP Pulse Ox O2 Del Method 97.9 F 77 16 149/78 H 95 Room Air 04/09/25 09:00 04/09/25 09:16 04/09/25 09:00 04/09/25 09:00 04/09/25 09:00 04/09/25 09:00 Oxygen Delivery Method Room Air Weight: 191 lb 3.2 oz Body Mass Index (BMI) 35.2 Intake & Output: Intake and Output for Last 24 Hours 04/07/25 04/08/25 04/09/25 23:59 23:59 23:59 Intake Total 625 / 625 265 / 265 Output Total 750 / 3450 4750 / 5600 1200 / 1200 Balance -730 / -3430 -4125 / -4975 -935 / -935 Lab / Micro Data 04/09/25 03:16 04/09/25 03:16 Labs: Laboratory Results - last 24 hr 04/09/25 03:16: WBC 12.3 H, RBC 3.37 L, Hgb 8.7 L, Hct 28.2 L, MCV 83.7, MCH 25.8 L, MCHC 30.9 L, RDW Std Deviation 52.4 H, RDW Coeff of Aleena 17.2 H, Plt Count 497 H, MPV 8.2, Immature Gran % (Auto) 0.700, Neut % (Auto) 74.5 H, Lymph % (Auto) 15.6 L, [place] % (Auto) 8.8, Eos % (Auto) 0.2, Baso % (Auto) 0.2, A bsolute Neuts (auto) 9.2 H, Absolute Lymphs (auto) 1.92, Nucleated RBC % 0, Sodium 138, Potassium 4.0, Chloride 102, Carbon Dioxide 26.5, Anion Gap 10, BUN 28 H, Creatinine 0.67 L, Estim Creat Clear Calc 53.51, Est GFR (MDRD) Non-Af 86, BUN/Creatinine Ratio 41.8 H, Glucose 115 H, Calcium 8.8, Phosphorus 3.3, Magnesium 1.8 Physical Exam Const alert, oriented x3 and no apparent distress Constitutional Narrative: frail General Appearance: cooperative HEENT normocephalic, head/scalp atraumatic, moist oral mucous membranes and oropharynx normal Eyes EOMs intact bilaterally Neck supple and no JVD Lymph Lymphatic: no lymphedema noted Resp Resp Narrative: mildly diminished breath sounds bibasa Cardio regular rate, regular rhythm, S1 normal heart sound and S2 normal heart sound GI normal to inspection, nondistended, normoactive bowel sounds, soft to palpation and non-tender Extremity normal capillary refill and no clubbing, cyanosis or edema General Extremity: no tenderness to palpation of joints or extremities Skin Skin Narrative: silver coloration to her face from argyrosis General Skin Exam: no breakdown Neuro no focal motor deficits and no sensory deficits noted Motor Exam: general weakness Psych thought process normal and cooperative Appearance: appropriate Assessment & Plan Assessment/Plan (1) Acute exacerbation of chronic heart failure: (2) Shortness of breath: (3) Edema: PLAN: Plan #Acute HFpEF * Has known EF of 65%. Being diuresed with IV Lasix. Also has known moderate pulmonary hypertension with RVSP of 60-65 mmHg. 2D echo. * PT OT on board. Titrate oxygen as needed to maintain saturation above 90%. #Diffuse pruritic rash * Thought to be drug-induced. Rifampin discontinued. Still having pruritus with vancomycin, relieved by vistaril * will monitor for now. ID consulted to evaluate to see if she needs to stop the antibiotics. 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 * For ID evaluation tomorrow. #History of CAD s/p stents: On aspirin and high intensity statin #History of Parkinson's disease: On levodopa carbidopa #Benign essential hypertension: Metoprolol. IV hydralazine as needed #Hyperlipidemia: On statin #Abnormal TSH: Was thought to be due to euthyroid syndrome. Repeat thyroid function 10 point patient is stable #History of recent DVT in the right gastrocnemius vein: * Was on therapeutic Lovenox but developed postop hematoma and this was discontinued. Repeat right lower extremity DVT ordered * #History of argyria * Skin on face and upper torso is carl with bluish tinge and is due to ingestion of silver water about 30 years ago * Currently stable DVT prophylax: Lovenox, on therapeutic dose. Once duplex is evaluated, will determined whether to continue the lovenox or otherwise at therapeutic dose. Charges/Coding Visit Charges Inpatient E&M: 02093 Subs Hosp L2
[2025-04-09] MEDS: MELATONIN 3 MG TABLET PO (21:55)
[2025-04-10] VITALS (11 sets, daily range): BP systolic 99–142; BP diastolic 43–60; PULSE 73–160; RESP 16–18; TEMP 36.4–37.3; O2SAT 93–97; BMI 34.9
[2025-04-10] MEDS: Vancomycin Trough/Random Due 1 LAB MC (00:13)
[2025-04-10 00:19] LABS: Vancomycin, Trough Level 17.4 ug/mL (5.0-15.0)
[2025-04-10] MEDS: Vancomycin HCl 750 MG in 0.9% Normal Saline (250mL Bag) 250 ML 250 MG IV ×2 (00:44→11:50)
--- NOTE | 2025-04-10 02:29 | PCM.RX.CS ---
Consult Antibiotic Management Pharmacy has been consulted to manage selected antibiotic: Vancomycin Type of Intervention Type of Consult: Follow-up Labs Labs: Sodium 138 mmol/L (135-145) 04/09/25 03:16 Potassium 4.0 mmol/L (3.5-5.1) 04/09/25 03:16 Chloride 102 mmol/L (96-106) 04/09/25 03:16 Carbon Dioxide 26.5 mmol/L (20.0-29.0) 04/09/25 03:16 Anion Gap 10 (7-18) 04/09/25 03:16 BUN 28 mg/dL (4-19) H 04/09/25 03:16 Creatinine 0.67 mg/dL (0.70-1.20) L 04/09/25 03:16 Est GFR (MDRD) Non-Af 86 (>60) 04/09/25 03:16 BUN/Creatinine Ratio 41.8 RATIO (10-20) H 04/09/25 03:16 Glucose 115 mg/dL (70-99) H 04/09/25 03:16 Vancomycin Trough 17.4 ug/mL (5.0-15.0) H 04/09/25 23:25 Goal Trough Goal Trough: 15-20 mcg/mL Pharmacy Plan for Drug Dosing Pharmacy Plan for Drug Dosing: Pharmacy Service will continue to monitor and adjust dosing as required. TROUGH 17.4 @ 11.5 HOURS. NO CHANGES, FOLLOW UP TROUGH IN 2 DAYS Follow-Up Labs Follow-Up Labs: Trough: Vancomycin Date/Time Labs Ordered Labs to be done on [date and time ordered]: 04/11 @ 7418
[2025-04-10 06:16] LABS: Hematocrit 28.5 % (37-47); Hemoglobin 8.7 g/dL (12.0-15.0); Immature Granulocytes Count 0.150 X10^3/uL (0.0-0.0); Mean Corp Hgb Conc 30.5 g/dL (32-36); Mean Corpuscular Volume 82.8 fL (81-99); Mean Platelet Vol. 8.1 fl (6.2-12.0); NRBC Flagged by Analyzer 0 % (0-5); POSITIVE DIFFERENTIAL YES; Platelet Count 546 K/mm3 (150-450); RBC Distribution Width CV 17.2 % (11.6-14.6); RBC Distribution Width SD 51.9 fl (35.1-43.9); Red Blood Count 3.44 M/mm3 (4.2-5.4); White Blood Count 14.0 K/mm3 (4.4-11.0)
[2025-04-10 06:19] LABS: Differential Indicated SCAN CRITERIA MET
[2025-04-10 06:22] LABS: Anion Gap 8 (7-18); BUN 37 mg/dL (4-19); BUN/Creat Ratio 57.0 RATIO (10-20); Calcium,Total 9.0 mg/dL (7.6-11.0); Carbon Dioxide 31.1 mmol/L (20.0-29.0); Chloride 100 mmol/L (96-106); Estimated Creatinine Clearance 53.27 ml/min (50-250); Glucose 95 mg/dL (70-99); Potassium 3.7 mmol/L (3.5-5.1)
[2025-04-10] MEDS: Juven (unflavored) Packet 1 PACKET PO ×2 (08:18→17:30)
[2025-04-10] MEDS: Aspirin E.C. 81 MG Tablet PO (08:26)
--- NOTE | 2025-04-10 10:16 | CASEMGMT ---
Addendum entered by Frida Santamaria 04/10/25 12:40: Per [facility], pt can return while precert is pending. Addendum entered by Frida Santamaria 04/10/25 10:35: Grace would like skill. SW updated. Original Note: Discharge Planning Updates sent via [facility] to [facility] with note asking if snf would like to skill. Awaiting response. Frida Santamaria DC Planning Asst.
--- NOTE | 2025-04-10 12:15 | PN_ITS ---
Subjective Subjective Patient seen and examined with her nurse by her bedside. She had no active complaints. She is awaiting ID evaluation. Review of systems is otherwise negative. Her heart rate was up in the 160s this morning. HR is now down to 70s after receiving IV lopressor. Objective Data Objective Data Vital Signs: Vital Signs Temp Pulse Resp BP Pulse Ox O2 Del Method 98.7 F 134 H 18 142/60 H 94 Room Air 04/10/25 08:14 04/10/25 10:07 04/10/25 08:14 04/10/25 08:16 04/10/25 08:14 04/10/25 10:00 Oxygen Delivery Method Room Air Weight: 189 lb 9.561 oz Body Mass Index (BMI) 34.9 Intake & Output: Intake and Output for Last 24 Hours 04/08/25 04/09/25 04/10/25 23:59 23:59 23:59 Intake Total 625 / 625 1010 / 1110 365 / 365 Output Total 4750 / 5600 2850 / 3750 1200 / 1200 Balance -4125 / -4975 -1840 / -2640 -835 / -835 Lab / Micro Data 04/10/25 05:48 04/10/25 05:48 Labs: Laboratory Results - last 24 hr 04/09/25 23:25: Vancomycin Trough 17.4 H 04/10/25 05:48: WBC 14.0 H, RBC 3.44 L, Hgb 8.7 L, Hct 28.5 L, MCV 82.8, MCH 25.3 L, MCHC 30.5 L, RDW Std Deviation 51.9 H, RDW Coeff of Aleena 17.2 H, Plt Count 546 H, MPV 8.1, Immature Gran % (Auto) 1.100 H, Neut % (Auto) 52.6, Lymph % (Auto) 18.2 L, [place] % (Auto) 8.6, Eos % (Auto) 18.9 H, Baso % (Auto) 0.6, Absolute Neuts (auto) 7.4, Absolute Lymphs (auto) 2.55, Nucleated RBC % 0, Sodium 140, Potassium 3.7, Chloride 100, Carbon Dioxide 31.1 H, Anion Gap 8, BUN 37 H, Creatinine 0.64 L, Estim Creat Clear Calc 53.27, Est GFR (MDRD) Non-Af 87, BUN/Creatinine Ratio 57.0 H, Glucose 95, Calcium 9.0 Radiography Diagnostic Testing: Radiology Impression Venous Doppler Study 04/07/25 16:07 Interpretation Summary Deep veins of the right lower extremity are patent and compressible segmentally. There is no evidence of right lower extremity deep vein thrombosis. The right great saphenous vein appears patent and compressible segmentally. Ordering Physician: Jasmin Steele Referring Physician: Tressa Conn Performed By: Funmi Vallecillo, ADAM, RVT Physical Exam Const alert, oriented x3 and no apparent distress Constitutional Narrative: frail General Appearance: cooperative HEENT normocephalic, head/scalp atraumatic, moist oral mucous membranes and oropharynx normal Eyes EOMs intact bilaterally Neck supple and no JVD Lymph Lymphatic: no lymphedema noted Resp Resp Narrative: mildly diminished breath sounds bibasally, no wheezes or crackles. On room air. Cardio regular rate, regular rhythm, S1 normal heart sound and S2 normal heart sound GI normal to inspection, nondistended, normoactive bowel sounds, soft to palpation and non-tender Extremity normal capillary refill and no clubbing, cyanosis or edema General Extremity: no tenderness to palpation of joints or extremities Skin Skin Narrative: silver coloration to her face from argyrosis General Skin Exam: no breakdown Neuro no focal motor deficits and no sensory deficits noted Motor Exam: general weakness Psych thought process normal and cooperative Appearance: appropriate Assessment & Plan Assessment/Plan (1) Acute exacerbation of chronic heart failure: (2) Shortness of breath: (3) Edema: PLAN: Plan #Acute HFpEF * Has known EF of 65%. Being diuresed with IV Lasix. Also has known moderate pulmonary hypertension with RVSP of 60-65 mmHg per 2D echo. * PT OT on board. Titrate oxygen as needed to maintain saturation above 90%. #Afib * HR was up in the 160s today. Received IV metoprolol and HR went down to the 70s and is now normal sinus rhythm * #Diffuse pruritic rash * Thought to be drug-induced. Rifampin discontinued. Still having pruritus with vancomycin, relieved by vistaril * will monitor for now. ID consulted to evaluate to see if she needs to stop the antibiotics. 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 * For ID evaluation tomorrow. #History of CAD s/p stents: On aspirin and high intensity statin #History of Parkinson's disease: On levodopa carbidopa #Benign essential hypertension: Metoprolol. IV hydralazine as needed #Hyperlipidemia: On statin #Abnormal TSH: Was thought to be due to euthyroid syndrome. Repeat thyroid function 10 point patient is stable #History of recent DVT in the right gastrocnemius vein: * Was on therapeutic Lovenox but developed postop hematoma and this was discontinued. Repeat right lower extremity DVT ordered * #History of argyria * Skin on face and upper torso is carl with bluish tinge and is due to ingestion of silver water about 30 years ago * Currently stable DVT prophylax: Lovenox, on therapeutic dose. Once duplex is evaluated, will determined whether to continue the lovenox or otherwise at therapeutic dose. Charges/Coding Visit Charges Inpatient E&M: 49375 Subs Hosp L2
--- NOTE | 2025-04-10 12:58 | WOUNDNOTE ---
wound photo: right hip
--- NOTE | 2025-04-10 13:13 | CASEMGMT ---
Social Work SW spoke with the patient and confirmed the DC plan for her is to return to [facility] when medically ready. MEEK Mendoza
--- NOTE | 2025-04-10 15:41 | CON.PCM.ID_ITS ---
Assessment & Plan Assessment/Plan (1) Infection and inflammatory reaction due to internal right hip prosthesis, initial encounter: PLAN: MRSA R hip PJI. Taken to OR for I&D by Dr. Tijerina on 03/02/25. Discharged on 6 weeks iv vanc and po rifampin. Rifampin stopped due to rash. Then admitted 03/24/25 with wound cx (+) klebsiella from R hip. In hospital, given vanc/ceftriaxone, then discharged with IV vanc, stop date 04/13/25 and one week course po augmentin 875mg bid for klebsiella coverage. Now back with ongoing rash, remains on iv vanc, rash improved today. No fever, hip has healed for the most part. Rash not impressive, improving while still receiving iv vanc. Suspect rash has been fluid-related. Whenever she is discharged in next day or two, plan will be picc removal, stop vanc, and change to po doxy 100mg bid for custodial suppression, ID followup in 1 month. Will follow, thank you HPI Consult Data Date of Consult: 04/10/25 HPI Narrative Reason for Consultation: PJI HPI Narrative: DAGOBERTO COHN, is a 85 F who presented originally for MRSA R hip PJI. Taken to OR for I&D by Dr. Tijerina on 03/02/25. Discharged on 6 weeks iv vanc and po rifampin. Rifampin stopped due to rash. Then admitted 03/24/25 with wound cx (+) klebsiella from R hip. In hospital, given vanc/ceftriaxone, then discharged with IV vanc, stop date 04/13/25 and one week course po augmentin 875mg bid for klebsiella coverage. Now back with ongoing rash, remains on iv vanc, rash improved today. No fever, hip has healed for the most part. Full ROS performed and neg except as noted above. 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 Anemia MRSA (methicillin resistant staph aureus) culture positive Nocturia Urge incontinence Overactive bladder Former tobacco use Depression Hypertension Fall CHI (closed head injury) Presence of stent in coronary artery (~12/22/21) Atherosclerotic heart disease of [place] coronary artery without angina pectoris ST elevation myocardial infarction (STEMI) of inferior wall (~12/22/21) Essential (primary) hypertension Parkinsons disease Urgency of urination Gout Cardiogenic shock Non-rheumatic mitral regurgitation Non-rheumatic tricuspid valve insufficiency Pulmonary hypertension Emphysema with chronic bronchitis Fibromyalgia Hyperlipidemia CAD (coronary artery disease) Bladder spasms Edema, lower extremity Myocardial infarction Home Medications ?Medication ?Instructions ?Recorded ?Last Taken ?Type acetaminophen 325 mg capsule 650 mg PO Q8H PRN fever o r pain 05/01/23 04/29/23 History atorvastatin 40 mg tablet 40 mg PO QHS hYPERLIPIDEMIA 05/01/23 04/30/23 History polyethylene glycol 3350 17 17 g PO DAILY PRN constipa tion 05/01/23 05/01/23 History gram/dose oral powder (ClearLax) psyllium husk 3.4 gram/5.4 gram 1 tbsp PO DAILY PRN CO NSTIPATION 05/01/23 04/30/23 History oral powder (Stacie-Mucil) alendronate 70 mg tablet 70 mg PO QWEEK osteoporosis 09/27/24 Unknown History duloxetine 20 mg capsule,delayed 20 mg PO QDAY DEPRESS ION 09/27/24 Unknown History release guaifenesin 100 mg/5 mL oral liquid 200 mg PO Q4H PRN cough 12/28/24 Unknown History melatonin 3 mg capsule 3 mg PO HS sleep 12/28/24 Un known History simethicone 125 mg chewable tablet 125 mg PO BID PRN a bdominal 12/28/24 Unknown History (Mylanta Gas) distention ascorbic acid (vitamin C) 500 mg 500 mg PO BID supplem ent 01/20/25 Unknown History capsule carbidopa 25 mg-levodopa 100 mg 1.5 tab PO TID kelsey on 01/20/25 Unknown History tablet (Dhivy) mirabegron 50 mg tablet,extended 50 mg PO DAILY bladde r 01/20/25 Unknown History release 24 hr (Myrbetriq) aluminum-mag hydroxide-simethicone 10 ml PO Q4H PRN in digestion, GAS, 02/28/25 Unknown History 400 mg-400 mg-40 mg/5 mL oral susp HEARTBURN, NAUSEA (Advanced Antacid-[place]) aspirin 81 mg tablet,delayed 81 mg PO BREAKFAST ANTICO AGULANT 02/28/25 Unknown History release ceramides 1,3,6-II (CeraVe Daily 1 applic topical LAURO Y DRY SKIN 02/28/25 Unknown History Moisturizing lotion) cholecalciferol (vitamin D3) 50 50 mcg PO DAILY SUPPLE MENT 02/28/25 Unknown History mcg (2,000 unit) capsule (D3-2000) cyanocobalamin (vitamin B-12) 500 500 mcg PO DAILY ANE SORAYA 02/28/25 Unknown History mcg tablet (Vitamin B-12) metoprolol tartrate 25 mg tablet 25 mg PO BID hyperten eric #0 tabs 03/05/25 Unknown Rx doxycycline hyclate 100 mg capsule 100 mg PO BID #60 c aps 03/28/25 Unknown Rx ferrous sulfate 325 mg (65 mg 325 mg PO QODAY ANEMIA 3 0 days #15 03/28/25 Unknown Rx iron) tablet (FeroSul) tabs vancomycin 750 mg intravenous 750 mg IV Q12H 16 days # 32 ea 03/28/25 Unknown Rx solution carbidopa 25 mg-levodopa 100 mg 2 tab PO QHS parkinson 's 04/07/25 Unknown History tablet (Dhivy) furosemide 40 mg tablet (Lasix) 40 mg PO DAILY edema 1 06/08/24 Unknown History hydroxyzine HCl 25 mg tablet 25 mg PO Q8H PRN itching 04/07/25 Unknown History multivitamin,jx-hfvc-Vb-FA-min 1 tab PO DAILY malnutri tion 04/07/25 Unknown History tramadol 50 mg tablet 50 mg PO Q6H PRN PRN pain Unknown History Allergy/AdvReac Type Severity Reaction Status Date / Time oxycodone (From Percocet) Allergy Severe Hives Verified 04/07/25 12:04 Family History Father Heart disease Surgical History History 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 alcohol intake: current alcohol intake frequency: holidays/special occasions only substance use type: does not use caffeine: Yes Type: coffee Number of servings: 2 Physical Exam Const alert, oriented x3 and no apparent distress General Appearance: cooperative HEENT normocephalic and head/scalp atraumatic Eyes PERRL and EOMs intact bilaterally Neck supple and No nodes Resp normal air movement and clear to auscultation bilaterally Cardio regular rate and regular rhythm GI soft to palpation, non-tender and non-distended Extremity General Extremity: edema Skin Skin Narrative: faint erythema to arms and legs. R hip incision with small open area. Neuro CN's II-XII intact bilaterally Lab / Micro Data Attestation: I reviewed the patient's lab results. 04/10/25 05:48 04/10/25 05:48 Labs: Laboratory Results - last 24 hr 04/09/25 23:25: Vancomycin Trough 17.4 H 04/10/25 05:48: WBC 14.0 H, RBC 3.44 L, Hgb 8.7 L, Hct 28.5 L, MCV 82.8, MCH 25.3 L, MCHC 30.5 L, RDW Std Deviation 51.9 H, RDW Coeff of Aleena 17.2 H, Plt Count 546 H, MPV 8.1, Immature Gran % (Auto) 1.100 H, Neut % (Auto) 52.6, Lymph % (Auto) 18.2 L, [place] % (Auto) 8.6, Eos % (Auto) 18.9 H, Baso % (Auto) 0.6, Absolute Neuts (auto) 7.4, Absolute Lymphs (auto) 2.55, Nucleated RBC % 0, Sodium 140, Potassium 3.7, Chloride 100, Carbon Dioxide 31.1 H, Anion Gap 8, BUN 37 H, Creatinine 0.64 L, Estim Creat Clear Calc 53.27, Est GFR (MDRD) Non-Af 87, BUN/Creatinine Ratio 57.0 H, Glucose 95, Calcium 9.0 Imaging Radiology Impression Venous Doppler Study 04/07/25 16:07 Interpretation Summary Deep veins of the right lower extremity are patent and compressible segmentally. There is no evidence of right lower extremity deep vein thrombosis. The right great saphenous vein appears patent and compressible segmentally. Ordering Physician: Jasmin Steele Referring Physician: Tressa Conn Performed By: Funmi Vallecillo, ADAM, RVT
--- NOTE | 2025-04-10 16:14 | CASEMGMT ---
Discharge Planning Updates sent to [facility] with request that they submit for precert. *Pt can return while this is pending. Frida Santamaria DC Planning Asst.
[2025-04-10] MEDS: 0.9% Saline Lock 10 ML Syringe IV ×2 (17:30→21:08)
[2025-04-10] MEDS: MELATONIN 3 MG TABLET PO (21:06)
[2025-04-11] VITALS (10 sets, daily range): BP systolic 107–133; BP diastolic 47–67; PULSE 66–86; RESP 14–18; TEMP 36.7–37.4; O2SAT 91–92; BMI 33.5
[2025-04-11] MEDS: Vancomycin HCl 750 MG in 0.9% Normal Saline (250mL Bag) 250 ML 250 MG IV ×2 (00:35→12:08)
[2025-04-11] MEDS: 0.9% Saline Lock 10 ML Syringe IV ×2 (00:35→05:29)
[2025-04-11 04:11] LABS: Hematocrit 27.0 % (37-47); Hemoglobin 8.2 g/dL (12.0-15.0); Immature Granulocytes Count 0.160 X10^3/uL (0.0-0.0); Mean Corp Hgb Conc 30.4 g/dL (32-36); Mean Corpuscular Volume 83.1 fL (81-99); Mean Platelet Vol. 8.0 fl (6.2-12.0); NRBC Flagged by Analyzer 0 % (0-5); POSITIVE DIFFERENTIAL YES; Platelet Count 473 K/mm3 (150-450); RBC Distribution Width CV 17.6 % (11.6-14.6); RBC Distribution Width SD 53.1 fl (35.1-43.9); Red Blood Count 3.25 M/mm3 (4.2-5.4); White Blood Count 11.3 K/mm3 (4.4-11.0)
[2025-04-11 04:26] LABS: Anion Gap 6 (7-18); BUN 39 mg/dL (4-19); BUN/Creat Ratio 53.7 RATIO (10-20); Calcium,Total 8.9 mg/dL (7.6-11.0); Carbon Dioxide 33.6 mmol/L (20.0-29.0); Chloride 100 mmol/L (96-106); Estimated Creatinine Clearance 52.15 ml/min (50-250); Glucose 105 mg/dL (70-99); Potassium 3.4 mmol/L (3.5-5.1)
[2025-04-11 04:29] LABS: Differential Indicated SCAN CRITERIA MET
[2025-04-11 04:48] LABS: Differential Comment SCANNED
[2025-04-11] MEDS: Juven (unflavored) Packet 1 PACKET PO ×2 (09:05→16:26)
[2025-04-11] MEDS: Potassium Chloride Oral Tablet 20 MEQ 40 MEQ PO (09:06)
[2025-04-11] MEDS: Aspirin E.C. 81 MG Tablet PO (09:06)
--- NOTE | 2025-04-11 09:51 | CASEMGMT ---
Discharge Planning Note sent via [facility] to [facility] that pt may return today. Requested phone/fax for after-hours report. Frida Santamaria DC Planning Asst.
--- NOTE | 2025-04-11 15:47 | TREXTCAR_ITS ---
Diet Diet Order/Speech Therapy: INPATIENT Hospital Diet / Speech Therapy Order(s) 04/07/25 16:07 Diet: Cardiac - Heart Healthy Food consistency:: Regular Liquid Consistency:: Regular/Thin Type of Dietary Supplement:: Ensure Plus High Protein Fluid restriction:: 1500 mL Diet Comments: 120mL EPHP chocolate flavor TID with meals Speech Therapy Comments: please help pt open food packaging Routine Orders/Code Status Enema Type: [place] DC O2, CPAP, BIPAP needs Home O2 Discharge instructions: No Wound(s) right hip: Wound Type: small open area along surgical incision Dressing Change: dry dressing Therapies Weight Bearing: Weight bearing as tolerated Physical Therapy: Eval and Treat Occupational Therapy: Eval and Treat Problem/Diagnosis (1) Infection and inflammatory reaction due to internal right hip prosthesis, initial encounter: Status: Acute Code(s): T84.51XA - Infection and inflammatory reaction due to internal right hip prosthesis, initial encounter Plan #Acute HFpEF * Has known EF of 65%. Being diuresed with IV Lasix. Also has known moderate pulmonary hypertension with RVSP of 60-65 mmHg per 2D echo. * PT OT on board. Titrate oxygen as needed to maintain saturation above 90%. #Afib * HR was up in the 160s today. Received IV metoprolol and HR went down to the 70s and is now normal sinus rhythm * #Diffuse pruritic rash * Thought to be drug-induced. Rifampin discontinued. Still having pruritus with vancomycin, relieved by vistaril * will monitor for now. ID consulted to evaluate to see if she needs to stop the antibiotics. 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 * For ID evaluation tomorrow. #History of CAD s/p stents: On aspirin and high intensity statin #History of Parkinson's disease: On levodopa carbidopa #Benign essential hypertension: Metoprolol. IV hydralazine as needed #Hyperlipidemia: On statin #Abnormal TSH: Was thought to be due to euthyroid syndrome. Repeat thyroid function 10 point patient is stable #History of recent DVT in the right gastrocnemius vein: * Was on therapeutic Lovenox but developed postop hematoma and this was discontinued. Repeat right lower extremity DVT ordered * #History of argyria * Skin on face and upper torso is carl with bluish tinge and is due to ingestion of silver water about 30 years ago * Currently stable DVT prophylax: Lovenox, on therapeutic dose. Once duplex is evaluated, will determined whether to continue the lovenox or otherwise at therapeutic dose. Allergies/Procedures Done in Hospital Allergies oxycodone (From Percocet) Allergy (Severe, Verified 04/07/25 12:04) Hives Procedures: None Type of Care/Length of Stay Estimated LOS: Convalescent Care Less Than 30 days Type of Care Needed: Skilled Rehab Potential: Fair Prognosis: Fair Additional Orders/Day of Discharge Day of Discharge: 04/11/25 Dietary and Speech Recommendations Dietitian Recommendations/Changes: Continue cardiac diet with fluid restriction per MD. Will adjust to 120mL EPHP TID with meals. Continue lou BID with medpass. Will put in diet order please open food when dropping off meals. Will monitor weight trends. Discharge Plan Admission Admit Date/Time: 04/07/25 15:45 Primary Reason for Your Visit: generalised rash, possibly drug induced Attending Provider: Asya Gustafson Primary Care Provider: Tressa Conn Consulting Providers: Jasmin Steele; Stephan Torres; Justice Gao Discharge Orders/Prescriptions Prescriptions: New doxycycline hyclate 100 mg tablet 100 mg PO BID Qty: 60 0RF Continued alendronate 70 mg tablet 70 mg PO QWEEK Patient Comments: TAKES EVERY THURSDAY duloxetine 20 mg capsule,delayed release(DR/EC) 20 mg PO QDAY guaifenesin 100 mg/5 mL liquid 200 mg PO Q4H PRN (Reason: cough) simethicone [Mylanta Gas] 125 mg tablet,chewable 125 mg PO BID PRN (Reason: abdominal distention) melatonin 3 mg capsule 3 mg PO HS atorvastatin 40 mg tablet 40 mg PO QHS polyethylene glycol 3350 [ClearLax] 17 gram/dose powder 17 g PO DAILY PRN (Reason: constipation) Stacie-Mucil 3.4 gram/5.4 gram powder 1 tbsp PO DAILY PRN (Reason: CONSTIPATION) Rx Instructions: mix into at least 8 oz of water or juice before administering acetaminophen 325 mg capsule 650 mg PO Q8H PRN (Reason: fever or pain) carbidopa-levodopa [Dhivy] 25-100 mg tablet 1.5 tab PO TID mirabegron [Myrbetriq] 50 mg tablet extended release 24 hr 50 mg PO DAILY ascorbic acid (vitamin C) 500 mg capsule 500 mg PO BID Rx Instructions: GIVE WITH IRON CeraVe Daily Moisturizing Lotion 1 applic topical DAILY cyanocobalamin (vitamin B-12) [Vitamin B-12] 500 mcg tablet 500 mcg PO DAILY alum-mag hydroxide-simeth [Advanced Antacid-Antigas] 400-400-40 mg/5 mL suspension 10 ml PO Q4H PRN (Reason: indigestion, GAS, HEARTBURN, NAUSEA) cholecalciferol (vitamin D3) [D3-2000] 50 mcg (2,000 unit) capsule 50 mcg PO DAILY aspirin 81 mg Tablet,Delayed Release (Dr/Ec) 81 mg PO BREAKFAST metoprolol tartrate 25 mg Tablet 25 mg PO BID Qty: 0 0RF doxycycline hyclate 100 mg capsule 100 mg PO BID Qty: 60 2RF Rx Instructions: started on 04/14/25 once IV vancomycin is complete ferrous sulfate [FeroSul] 325 mg (65 mg iron) tablet 325 mg PO QODAY 30 Days Qty: 15 0RF furosemide [Lasix] 40 mg tablet 40 mg PO DAILY Rx Instructions: x 7 days, starting 04/06/25 and end 04/13/25 hydroxyzine HCl 25 mg tablet 25 mg PO Q8H PRN (Reason: itching) multivitamin,uu-dwcb-If-FA-min Tablet 1 tab PO DAILY tramadol 50 mg tablet 50 mg PO Q6H PRN PRN (Reason: pain) carbidopa-levodopa [Dhivy] 25-100 mg tablet 2 tab PO QHS Discontinued vancomycin 750 mg recon soln 750 mg IV Q12H 16 Days Qty: 32 0RF Rx Instructions: stop date 04/13/25. Dx: R hip PJI. Weekly bmp, cbc, esr, and vanc trough. Fax to [phone]. Referrals / Follow Up: Justice Gao MD [Med Staff - Active Staff, Infectious Disease] - Within 1 Month Tressa Conn MD [Primary Care Provider, Internal Medicine] - Within 1 Week Disposition Disposition (needs filled in before D/C Order can be placed): Nursing Home Facility
--- NOTE | 2025-04-11 15:48 | DS.PCM_ITS ---
Providers Date of Admission: 04/07/25 Date of Discharge: 04/11/25 Primary Care Physician: Dr. Tressa Conn MD Consultations 04/07/25 16:07 Consult: Onc/Wound/manager process excellence Routine Comment: Reason for Consult:: R hip would, had VAC, taken by SNF, went to wet->dry in ED 04/08/25 10:32 Consult: Infectious Disease Routine Consulting Provider: Justice Gao Reason for Consult: Recent right hip prosthesis infection EMERGENT Consult: No MD Notified: Yes Date Notified: 04/10/25 Time Notified: 06:33 Method of Notification: Text Reason For Visit: EDEMA Diagnosis Discharge Diagnosis (1) Infection and inflammatory reaction due to internal right hip prosthesis, initial encounter: Status: Acute Code(s): T84.51XA - Infection and inflammatory reaction due to internal right hip prosthesis, initial encounter Plan #Acute HFpEF * Has known EF of 65%. Being diuresed with IV Lasix. Also has known moderate pulmonary hypertension with RVSP of 60-65 mmHg per 2D echo. * PT OT on board. Titrate oxygen as needed to maintain saturation above 90%. #Afib * HR was up in the 160s today. Received IV metoprolol and HR went down to the 70s and is now normal sinus rhythm * #Diffuse pruritic rash * Thought to be drug-induced. Rifampin discontinued. Still having pruritus with vancomycin, relieved by vistaril * will monitor for now. ID consulted to evaluate to see if she needs to stop the antibiotics. 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 * For ID evaluation tomorrow. #History of CAD s/p stents: On aspirin and high intensity statin #History of Parkinson's disease: On levodopa carbidopa #Benign essential hypertension: Metoprolol. IV hydralazine as needed #Hyperlipidemia: On statin #Abnormal TSH: Was thought to be due to euthyroid syndrome. Repeat thyroid function 10 point patient is stable #History of recent DVT in the right gastrocnemius vein: * Was on therapeutic Lovenox but developed postop hematoma and this was discontinued. Repeat right lower extremity DVT ordered * #History of argyria * Skin on face and upper torso is carl with bluish tinge and is due to ingestion of silver water about 30 years ago * Currently stable DVT prophylax: Lovenox, on therapeutic dose. Once duplex is evaluated, will determined whether to continue the lovenox or otherwise at therapeutic dose. Medications at Discharge Home Medications acetaminophen 325 mg capsule 650 mg PO Q8H PRN fever or pain 05/01/23 atorvastatin 40 mg tablet 40 mg PO QHS hYPERLIPIDEMIA 05/01/23 polyethylene glycol 3350 17 gram/dose oral powder (ClearLax) 17 g PO DAILY PRN constipation 05/01/23 psyllium husk 3.4 gram/5.4 gram oral powder (Stacie-Mucil) 1 tbsp PO DAILY PRN CONSTIPATION 05/01/23 alendronate 70 mg tablet 70 mg PO QWEEK osteoporosis 09/27/24 duloxetine 20 mg capsule,delayed release 20 mg PO QDAY DEPRESSION 09/27/24 guaifenesin 100 mg/5 mL oral liquid 200 mg PO Q4H PRN cough 12/28/24 melatonin 3 mg capsule 3 mg PO HS sleep 12/28/24 simethicone 125 mg chewable tablet (Mylanta Gas) 125 mg PO BID PRN abdominal distention 12/28/24 ascorbic acid (vitamin C) 500 mg capsule 500 mg PO BID supplement 01/20/25 carbidopa 25 mg-levodopa 100 mg tablet (Dhivy) 1.5 tab PO TID parkinson 01/20/25 mirabegron 50 mg tablet,extended release 24 hr (Myrbetriq) 50 mg PO DAILY bladder 01/20/25 aluminum-mag hydroxide-simethicone 400 mg-400 mg-40 mg/5 mL oral susp (Advanced Antacid-Antigas) 10 ml PO Q4H PRN indigestion, GAS, HEARTBURN, NAUSEA 02/28/25 aspirin 81 mg tablet,delayed release 81 mg PO BREAKFAST ANTICOAGULANT 02/28/25 ceramides 1,3,6-II (CeraVe Daily Moisturizing lotion) 1 applic topical DAILY DRY SKIN 02/28/25 cholecalciferol (vitamin D3) 50 mcg (2,000 unit) capsule (D3-2000) 50 mcg PO DAILY SUPPLEMENT 02/28/25 cyanocobalamin (vitamin B-12) 500 mcg tablet (Vitamin B-12) 500 mcg PO DAILY ANEMIA 02/28/25 metoprolol tartrate 25 mg tablet 25 mg PO BID hypertension #0 tabs 03/05/25 ferrous sulfate 325 mg (65 mg iron) tablet (FeroSul) 325 mg PO QODAY ANEMIA 30 days #15 tabs 03/28/25 carbidopa 25 mg-levodopa 100 mg tablet (Dhivy) 2 tab PO QHS parkinson's 04/07/25 hydroxyzine HCl 25 mg tablet 25 mg PO Q8H PRN itching 04/07/25 multivitamin,jj-zoua-Ef-FA-min 1 tab PO DAILY malnutrition 04/07/25 tramadol 50 mg tablet 50 mg PO Q6H PRN PRN pain 04/07/25 doxycycline hyclate 100 mg tablet 100 mg PO BID #60 tabs 04/11/25 furosemide 40 mg tablet (Lasix) 40 mg PO DAILY #30 tabs 04/11/25 Hospital Course Operations None Procedures None Summary of Care Provided Minutes Spent on Discharge: 42 Hospital Course: Patient is an 85-year-old female with an extensive past medical history as outlined was admitted through the ED on 04/07/2025 with complaint of shortness of breath and a rash. 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 She had a wound VAC placed and was placed on antibiotics for 6 weeks of vancomycin and rifampin. However rifampin was subsequently discontinued due to a rash and she was transitioned to vancomycin and Rocephin. She was discharged then on oral Augmentin for 1 week and then to continue with IV vancomycin with a stop date of 05/08/2024. However she came back to the ED on 04/07/2025 with a complaint of significant edema and weight gain as well as shortness of breath and a diffuse rash. The rash was pruritic. Troponins x 2 were negative. Chest x-ray showed moderate pulmonary edema with bibasilar opacities. She was admitted and managed for acute exacerbation of heart failure preserved ejection fraction. She was diuresed with IV Lasix. The rash was thought to be drug-induced so ID was consulted. She was given Vistaril in addition to the vancomycin. The swelling improved and she felt better. ID reviewed patient and recommended that on discharge the vancomycin could be discontinued and she was to be discharged on long-term oral doxycycline 100 mg twice daily for suppressive therapy. Patient was [facility] on [facility]2025. She was discharged with a prescription for oral doxycycline 100 mg twice daily for 1 month. She is to follow-up with her primary care doctor and follow-up with ID within 1 month to determine if doxycycline should be continued. She was also discharged on p.o. Lasix 40 mg daily. Patient seen and examined prior to discharge. She had no complaints and had an uneventful night. Review of systems otherwise negative. Labs and vitals reviewed. Medication reviewed and reconciled. Physical Exam Const alert, oriented x3 and no apparent distress Constitutional Narrative: frail General Appearance: cooperative and comfortable HEENT normocephalic, head/scalp atraumatic, hearing grossly normal bilaterally, moist oral mucous membranes and oropharynx normal Mouth: oral and palatal mucosa normal Eyes EOMs intact bilaterally Neck supple and no JVD Lymph Lymphatic: no lymphedema noted Resp Resp Narrative: mildly diminished breath sounds bibasally, no wheezes or crackles. On room air. Cardio regular rate, regular rhythm, S1 normal heart sound and S2 normal heart sound GI normal to inspection, nondistended, normoactive bowel sounds, soft to palpation and non-tender Extremity full ROM, normal capillary refill and no clubbing, cyanosis or edema General Extremity: no tenderness to palpation of joints or extremities Skin Skin Narrative: silver coloration to her face from argyrosis General Skin Exam: no breakdown Neuro oriented x3, moves all extremities, no focal motor deficits and no sensory deficits noted Sensorium / Orientation: awake Motor Exam: general weakness Psych thought process normal and cooperative Appearance: appropriate Weight / BMI Weight Weight: 182 lb 1.629 oz Body Mass Index (BMI) 33.5 ABG / Lab / Microbiology Data 04/11/25 03:44 04/11/25 03:44 Laboratory: Laboratory Results - last 24 hr 04/11/25 03:44: WBC 11.3 H, RBC 3.25 L, Hgb 8.2 L, Hct 27.0 L, MCV 83.1, MCH 25.2 L, MCHC 30.4 L, RDW Std Deviation 53.1 H, RDW Coeff of Aleena 17.6 H, Plt Count 473 H, MPV 8.0, Immature Gran % (Auto) 1.400 H, Neut % (Auto) 42.3 L, Lymph % (Auto) 22.2, [place] % (Auto) 9.2, Eos % (Auto) 24.4 H, Baso % (Auto) 0.5, Absolute Neuts (auto) 4.8, Absolute Lymphs (auto) 2.51, Nucleated RBC % 0, Differential Comment SCANNED, Sodium 140, Potassium 3.4 L, Chloride 100, Carbon Dioxide 33.6 H, Anion Gap 6 L, BUN 39 H, Creatinine 0.73, Estim Creat Clear Calc 52.15, Est GFR (MDRD) Non-Af 81, BUN/Creatinine Ratio 53.7 H, Glucose 105 H, Calcium 8.9 D/C Instructions Discharge Activity: Return to Normal Activity Call your doctor if you observe: Fever of 101 or Higher, Shortness of breath, Dizziness, Swelling in the ankles and Chest pain DC O2, CPAP, BIPAP Needs Home O2 Discharge instructions: No DC home with Oxygen: No Patient's Goals Of Care - F/U Goals Reviewed Goals of care reviewed with patient: Yes - No change Meaningful Use Info Meaningful Use Meaningful Use Diagnoses (Choose all that apply): CHF CHF DORIAN/ARB ordered at discharge?: No Reason DORIAN/ARB not ordered?: Not indicated Documented LVEF (%): 65 Discharge Plan Admission Admit Date/Time: 04/07/25 15:45 Primary Reason for Your Visit: generalised rash, possibly drug induced Attending Provider: Asya Gustafson Primary Care Provider: Tressa Conn Consulting Providers: Jasmin Steele; Stephan Torres; Justice Gao Discharge Orders/Prescriptions Prescriptions: New doxycycline hyclate 100 mg tablet 100 mg PO BID Qty: 60 0RF furosemide [Lasix] 40 mg tablet 40 mg PO DAILY Qty: 30 2RF Continued alendronate 70 mg tablet 70 mg PO QWEEK Patient Comments: TAKES EVERY THURSDAY duloxetine 20 mg capsule,delayed release(DR/EC) 20 mg PO QDAY guaifenesin 100 mg/5 mL liquid 200 mg PO Q4H PRN (Reason: cough) simethicone [Mylanta Gas] 125 mg tablet,chewable 125 mg PO BID PRN (Reason: abdominal distention) melatonin 3 mg capsule 3 mg PO HS atorvastatin 40 mg tablet 40 mg PO QHS polyethylene glycol 3350 [ClearLax] 17 gram/dose powder 17 g PO DAILY PRN (Reason: constipation) Stacie-Mucil 3.4 gram/5.4 gram powder 1 tbsp PO DAILY PRN (Reason: CONSTIPATION) Rx Instructions: mix into at least 8 oz of water or juice before administering acetaminophen 325 mg capsule 650 mg PO Q8H PRN (Reason: fever or pain) carbidopa-levodopa [Dhivy] 25-100 mg tablet 1.5 tab PO TID mirabegron [Myrbetriq] 50 mg tablet extended release 24 hr 50 mg PO DAILY ascorbic acid (vitamin C) 500 mg capsule 500 mg PO BID Rx Instructions: GIVE WITH IRON CeraVe Daily Moisturizing Lotion 1 applic topical DAILY cyanocobalamin (vitamin B-12) [Vitamin B-12] 500 mcg tablet 500 mcg PO DAILY alum-mag hydroxide-simeth [Advanced Antacid-Antigas] 400-400-40 mg/5 mL suspension 10 ml PO Q4H PRN (Reason: indigestion, GAS, HEARTBURN, NAUSEA) cholecalciferol (vitamin D3) [D3-2000] 50 mcg (2,000 unit) capsule 50 mcg PO DAILY aspirin 81 mg Tablet,Delayed Release (Dr/Ec) 81 mg PO BREAKFAST metoprolol tartrate 25 mg Tablet 25 mg PO BID Qty: 0 0RF ferrous sulfate [FeroSul] 325 mg (65 mg iron) tablet 325 mg PO QODAY 30 Days Qty: 15 0RF hydroxyzine HCl 25 mg tablet 25 mg PO Q8H PRN (Reason: itching) multivitamin,eo-jsfn-Dc-FA-min Tablet 1 tab PO DAILY tramadol 50 mg tablet 50 mg PO Q6H PRN PRN (Reason: pain) carbidopa-levodopa [Dhivy] 25-100 mg tablet 2 tab PO QHS Discontinued vancomycin 750 mg recon soln 750 mg IV Q12H 16 Days Qty: 32 0RF Rx Instructions: stop date 04/13/25. Dx: R hip PJI. Weekly bmp, cbc, esr, and vanc trough. Fax to [phone]. doxycycline hyclate 100 mg capsule 100 mg PO BID Qty: 60 2RF Rx Instructions: started on 04/14/25 once IV vancomycin is complete furosemide [Lasix] 40 mg tablet 40 mg PO DAILY Rx Instructions: x 7 days, starting 04/06/25 and end 04/13/25 Referrals / Follow Up: Justice Gao MD [Med Staff - Active Staff, Infectious Disease] - Within 1 Month Tressa Conn MD [Primary Care Provider, Internal Medicine] - Within 1 Week Disposition Disposition (needs filled in before D/C Order can be placed): Shelter Facility Charges/Coding Visit Charges Inpatient E&M: 95710 Disch Hosp >30min
--- NOTE | 2025-04-11 16:17 | CASEMGMT ---
Social Work SW notified the patient, nurse and daughter that the patient is discharging back to [facility]. Transportation is scheduled with [facility] in [facility] wheelchair and is scheduled for 830pm tonight. Disposition: [facility] MEEK Mendoza
--- NOTE | 2025-04-11 16:45 | NURSING ---
Report called to Naveed Santos, all questions answered. Aware up pickup time 2029.
[2025-04-11] MEDS: MELATONIN 3 MG TABLET PO (22:30)
== END 2025-04-11 23:25 | DRG 291 ==
LOC: ED 15:28 → PCU 16:08
PROVIDERS: Internal Medicine; Admitting Provider Family Medicine; Emergency Provider Emergency Medicine; PCP Internal Medicine Geriatric Medicine; Visit Provider Student in an Organized Health Care Education/Training Program
DX: I11.0 Hypertensive heart disease with heart failure (principal); I50.33 Acute on chronic diastolic (congestive) heart failure; T84.51XA Infection and inflammatory reaction due to internal right hip prosthesis, initial encounter; B96.1 Klebsiella pneumoniae [K. pneumoniae] as the cause of diseases classified elsewhere; Z66 Do not resuscitate; G20.A1 Parkinson's disease without dyskinesia, without mention of fluctuations; J44.9 Chronic obstructive pulmonary disease, unspecified; D50.9 Iron deficiency anemia, unspecified; F32.A Depression, unspecified; I48.91 Unspecified atrial fibrillation; I25.10 Atherosclerotic heart disease of native coronary artery without angina pectoris; E78.5 Hyperlipidemia, unspecified; F41.9 Anxiety disorder, unspecified; I25.2 Old myocardial infarction; L27.0 Generalized skin eruption due to drugs and medicaments taken internally; L29.89 Other pruritus; T36.6X5A Adverse effect of rifampicins, initial encounter; E07.81 Sick-euthyroid syndrome; Z95.5 Presence of coronary angioplasty implant and graft; Z96.641 Presence of right artificial hip joint; Z79.82 Long term (current) use of aspirin; Z79.83 Long term (current) use of bisphosphonates; Z79.899 Other long term (current) drug therapy; Z86.718 Personal history of other venous thrombosis and embolism; Z87.891 Personal history of nicotine dependence
CPT/HCPCS: 36415; 36592; 71046; 80048; 80053; 80061; 80202; 83735; 83880; 84100; 84439; 84443; 84481; 84484; 85025; 85610; 85730; 93005; 93306; 93971; 94640; 94668; 97162; 97166; 97530; 97535; 97802; 97803; 99285; A4216; J1938